=== PATIENT | male | born 1945 | race Caucasian/White ===

== ENCOUNTER 2018-10-14 16:56 | Outpatient (CLI) | payer MEDICARE, BC, SELFPAY ==
--- NOTE | 2018-10-14 15:45 | DI.RAD_ITS ---
SYMPTOMS/DIAGNOSIS: COUGH, SHORTNESS OF BREATH, H/O HEART DISEASE, UPPER RESPIRATORY INFECTION, J06.9 CHEST X-RAY, PA AND LATERAL: Comparison is 03/05/15. The heart size is within normal limits. The patient is status post CABG. Sternal wires are in place. Pulmonary vasculature is within normal limits. There is blunting again seen at the left costophrenic angle, which is unchanged and likely reflects scarring. There is atelectasis or scarring in the right lung base. No focal consolidating infiltrates, effusions or pneumothoraces are identified. The lungs appear hyperinflated consistent with underlying COPD. There is again seen postsurgical changes of an aortic valve replacement. Degenerative changes are seen in the spine. IMPRESSION: COPD. No acute pulmonary process.
[2018-10-14 17:28] LABS: Abs Immature Grans 0.01 k/cumm (0.0-0.09); Absolute Basophil Count 0.02 k/cumm (0.0-0.2); Absolute Eosinophil Count 0.07 k/cumm (0.0-0.7); Absolute Lymphocyte Count 1.22 k/cumm (1.2-3.4); Absolute Monocyte Count 0.88 k/cumm (0.11-0.7); Absolute Neutrophil Count 6.88 k/cumm (1.2-6.7); Basophils % 0.2; Eosinophils % 0.8; HCT 45.2 % (40.0-50.0); HGB 14.8 g/dL (13.5-17.5); Immature Grans % 0.1; Lymphocytes % 13.4; Mean Corp. HGB Concentration 32.7 g/dL (32.0-36.0); Mean Corpuscular Hemoglobin 28.8 pg (27.0-33.0); Mean Corpuscular Volume 88.1 fL (80-95); Mean Platelet Volume 9.9 fL (8.0-11.0); Monocytes % 9.7; Neutrophils % 75.8; Platelet Count 158 x1000/uL (130-400); RBC 5.13 m/cumm (4.50-6.00); RBC Distribution Width 13.8 % (11.8-14.1); White Blood Cell Count 9.08 k/cumm (4.4-10.8)
== END 2018-10-14 17:16 ==
PROVIDERS: PCP Emergency Medicine; Visit Provider Internal Medicine
DX: J06.9 Acute upper respiratory infection, unspecified (principal); R05 Cough; R06.02 Shortness of breath; J44.9 Chronic obstructive pulmonary disease, unspecified; Z95.1 Presence of aortocoronary bypass graft
CPT/HCPCS: 36415; 71046; 85025

== ENCOUNTER → 2019-03-03 10:57 | Outpatient (BNVA) | payer MEDICARE, BC, SELFPAY | PROVIDERS: PCP Emergency Medicine; Referring Provider Internal Medicine; Visit Provider Physical Therapy Assistant | DX: S30.811A Abrasion of abdominal wall, initial encounter (principal); X58.XXXA Exposure to other specified factors, initial encounter; I10 Essential (primary) hypertension; E11.9 Type 2 diabetes mellitus without complications | CPT/HCPCS: 99212; 99213 ==

== ENCOUNTER 2019-04-15 15:23 | Outpatient (CLI) | payer MEDICARE, BC, SELFPAY | END 2019-04-15 15:43 | PROVIDERS: PCP Emergency Medicine; Visit Provider Emergency Medicine | DX: N40.0 Benign prostatic hyperplasia without lower urinary tract symptoms (principal); Z12.5 Encounter for screening for malignant neoplasm of prostate | CPT/HCPCS: 36415; 84153 ==

== ENCOUNTER → 2019-06-12 11:25 | Outpatient (BNVA) | payer MEDICARE, BC, SELFPAY | PROVIDERS: PCP Emergency Medicine; Referring Provider Emergency Medicine; Visit Provider Physical Therapy Assistant | DX: Z12.11 Encounter for screening for malignant neoplasm of colon (principal); I12.9 Hypertensive chronic kidney disease with stage 1 through stage 4 chronic kidney disease, or unspecified chronic kidney disease; E11.22 Type 2 diabetes mellitus with diabetic chronic kidney disease; N18.9 Chronic kidney disease, unspecified; Z79.84 Long term (current) use of oral hypoglycemic drugs ==

== ENCOUNTER 2019-06-30 09:42 | Day surgery (SDC) | payer MEDICARE, BC, SELFPAY ==
--- NOTE | 2019-06-30 07:00 | W.COLOREPORT ---
Date of service: 06/30/19 Time of Service: 11:28 Colonoscopy Report Date of procedure: 06/30/19 Pre-op diagnosis general: Colon Cancer Screening Post-op diagnosis procedure note: other (Hunter-Diverticulosis) Procedure: Colonoscopy Surgeon: Nany Costello Anesthesia proc note operative: other (General/ ASA 4/ Fred Castillo CRNA) Estimated blood loss (mL): 0 Pathology: none sent Complications: None Disposition: same day Indications: Mr. Rosenthal is a pleasant 73 year old male seen in the office for a screening colonoscopy. Risks, benefits and complications have been reviewed. Complications include but are not limited to bleeding, pain, perforation, missed small lesion/polyp, sore throat, aspiration and adverse reaction to the medications. Questions were entertained and answered to their satisfaction and they wished to proceed. No guarantees were given or implied. Prep: Miralax/Dulcolax Procedure Start Time: 11:02 Procedure End Time: 11:27 Retraction Time: 15 minutes Findings: Hunter-Diverticulosis Suboptimal prep in the cecum and ascending colon Procedure Description: After informed consent was obtained the patient was taken to the procedure room and placed in a left decubitous position. Monitors were applied and a time out was done. The patients name, date of , procedure, allergies to medications and metal in their body was reviewed. The patient was then sedated. Once sedated and comfortable a rectal exam was done. External exam was normal. Internal exam revealed a normal sphincter tone and no palpable masses. Unable to feel the prostate due to patient body habitus. The scope was then introduced and retro-flexed. No internal hemorrhoids, polyps or masses were identified on retro-flexion. The scope was then advanced to the cecum without difficulty. The TI and appendiceal orifice were identified. The prep was adequate except in the cecum and part of the ascending colon. 1 L was used to clean the cecum and ascending colon. The scope was then slowly retracted over [] minutes back into the rectum. There were no polyps identified. There was moderate hunter-diverticulosis. The scope was removed and the patient was woken up and taken back to Same day surgery in stable condition. The patient tolerated the procedure well and there were no immediate complications. Follow up: The patient should follow up in 10 years unless they develop changes in bowel habits or other new gastrointestinal complaints.
--- NOTE | 2019-06-30 07:02 | W.PM.DSUDISC ---
Discharge Plan Disposition Patient Disposition: HOME Condition: Good Discharge Details Reason For Visit: Colonoscopy Attending Provider: Nany Costello Primary Care Provider: Carlos Hernandez Home Meds and New Rx's Prescriptions: Continued amlodipine 10 mg tablet 10 mg PO DAILY RF: 0 epinephrine [EpiPen 2-Yuri] 0.3 mg/0.3 mL auto-injector 0.3 mg IM ONCE Qty: 1 RF: 2 rosuvastatin [Crestor] 10 mg tablet 10 mg PO DAILY Qty: 90 RF: 3 metformin 500 mg tablet 500 mg PO DAILY RF: 0 amoxicillin 500 MG capsule 2,000 mg PO DIRECTED RF: 0 aspirin [Aspir-81] 81 MG tablet,delayed release (DR/EC) 1 tab PO DAILY RF: 0 Symbicort 10.2 GM HFA aerosol inhaler 2 puff Inhalation BID Qty: 2 RF: 6 mometasone [Nasonex] 17 GM spray,non-aerosol 2 spry NS BID RF: 0 Spiriva with HandiHaler 18 MCG capsule, w/inhalation device 18 mcg Inhalation DAILY RF: 0 escitalopram oxalate [Lexapro] 20 MG tablet 20 mg PO DAILY RF: 0 Cosentyx (2 Syringes) 150 MG/1 ML syringe 150 mg SQ weekly RF: 0 diclofenac sodium 100 GM gel 100 gm Topical QID MDD 100 GM Qty: 1 RF: 0 ranitidine HCl 150 mg capsule 150 mg PO BID Qty: 180 RF: 3 hydrochlorothiazide 25 mg tablet 25 mg PO DAILY Qty: 90 RF: 4 losartan [Cozaar] 100 mg tablet 100 mg PO DAILY Qty: 90 RF: 3 fenofibric acid (choline) [Trilipix] 135 mg capsule,delayed release(DR/EC) 135 mg PO HS Qty: 90 RF: 3 spironolactone 25 mg tablet 25 mg PO DAILY Qty: 90 RF: 2 trazodone 50 MG tablet 50 mg PO hs prn RF: 0 acetaminophen [Mapap Extra Strength] 500 MG tablet 1,000 mg PO Q6H PRN PRNRF: 0 Discontinued polyethylene glycol 3350 17 gram/dose powder 238 g PO ONCE Qty: 238 RF: 0 bisacodyl [Dulcolax (bisacodyl)] 5 mg tablet,delayed release (DR/EC) 5 mg PO ONCE Qty: 4 RF: 0 Discharge Instructions Instructions: Colonoscopy (DC), Diverticulosis (DC) Additional Instructions: Findings: Diverticulosis Follow up: 10 years Please call if you develop: fevers >101.5 Nausea or Vomiting Abdominal pain that is not transient DAY SURGERY UNIT POST ENDOSCOPY INSTRUCTIONS 1. Because there will be medication in your system for the next 24 hours, you may feel a little sleepy. Your coordination will be affected. Therefore: a. Do not drive or operate dangerous equipment for 24 hours. b. Do not drink alcohol beverages for 24 hours (not even beer). c. Plan to go home and rest for the day. 2. Generally there are no restrictions on your activity after a day or so has gone by, but you may feel a bit fatigued for a few days. 3 After you arrive home you may have a light meal and return to a normal diet as you can tolerate it without feeling sick to your stomach. 4. After surgery, you may feel pain or discomfort. This should be only transient, but if it persists please contact your doctor. 5. If there are any questions regarding the findings of your procedure, please feel free to contact your doctor. 6. If you are unable to contact your doctor with a problem, contact the hospital at [phone]. 7. Continue all your regular medications unless directed otherwise. I understand the above instructions and have no questions. Signature of Patient or Responsible Adult Escort Date/Time Name of Responsible Adult Escort Signature of Nurse Date/Time Activity:: Activity as Tolerated Diet:: low fat and high fiber Discharge Orders Discharge Orders: Discharge Order (Routine); Ordered 06/30/19 Ordered By: Nany Costello DS: Diagnosis Discharge Diagnosis (1) Colonoscopy - MAC: Status: None (2) Diverticulosis large intestine w/o perforation or abscess w/o bleeding: Status: Acute
[2019-06-30 10:19] VITALS: BP 139/66; PULSE 64; RESP 16; TEMP 36.8; O2SAT 96
[2019-06-30] MEDS: Lactated Ringers 1,000 ML 80 ML IV (10:44)
[2019-06-30 12:00] VITALS: BP 98/59; PULSE 53; RESP 15; TEMP 36.7; O2SAT 95
== END 2019-06-30 12:28 | disposition home or self-care (01) ==
LOC: SUR 09:42
PROVIDERS: PCP Emergency Medicine; Visit Provider Surgery
PROC: 0DJD8ZZ Inspection of Lower Intestinal Tract, Via Natural or Artificial Opening Endoscopic (ICD-10-PCS; CPT 45378; principal; 2019-06-30 11:15)
DX: Z12.11 Encounter for screening for malignant neoplasm of colon (principal); K57.30 Diverticulosis of large intestine without perforation or abscess without bleeding; E11.9 Type 2 diabetes mellitus without complications; Z79.84 Long term (current) use of oral hypoglycemic drugs; I10 Essential (primary) hypertension; K21.9 Gastro-esophageal reflux disease without esophagitis
CPT/HCPCS: G0121; J2250; J3010

== ENCOUNTER 2019-09-02 07:00 | Outpatient (CLI) | payer MEDICARE, BC, SELFPAY ==
[2019-09-02 13:01] LABS: Hemoglobin A1C 6.1 % (4.5-6.2)
[2019-09-02 14:10] LABS: Anion Gap 12.5 mmol/L (3-11); BUN 31 mg/dL (7-18); CO2 27.5 mmol/L (21.0-32.0); CREATININE 1.64 mg/dL (0.70-1.30); Calcium 9.4 mg/dL (8.5-10.1); Chloride 105 mmol/L (98-107); Estimated GFR 41.39 (mL/min/1.73m2); Glucose 141 mg/dL (74-106); Potassium 3.9 mmol/L (3.5-5.1); Sodium 145 mmol/L (136-145)
== END 2019-09-02 07:20 ==
PROVIDERS: PCP Emergency Medicine; Visit Provider Emergency Medicine
DX: I10 Essential (primary) hypertension (principal); E11.9 Type 2 diabetes mellitus without complications
CPT/HCPCS: 36415; 80048; 83036

== ENCOUNTER 2020-07-19 02:08 | Outpatient (CLI) | payer MEDICARE, BC, SELFPAY ==
[2020-07-19 11:06] LABS: Anion Gap 7.7 mmol/L (3-11); BUN 32 mg/dL (7-18); CO2 27.3 mmol/L (21.0-32.0); CREATININE 1.46 mg/dL (0.70-1.30); Calcium 9.4 mg/dL (8.5-10.1); Calculated LDL 115 mg/dL (<100); Chloride 103 mmol/L (98-107); Cholesterol 179 mg/dL (<200); Estimated GFR 47.33 (mL/min/1.73m2); Glucose 167 mg/dL (74-106); HDL Cholesterol 44 mg/dL (40-60); Potassium 4.3 mmol/L (3.5-5.1); Sodium 138 mmol/L (136-145); Triglyceride 104 mg/dL (<150)
== END 2020-07-19 02:28 ==
PROVIDERS: PCP Emergency Medicine; Visit Provider Emergency Medicine
DX: I25.10 Atherosclerotic heart disease of native coronary artery without angina pectoris (principal); E11.9 Type 2 diabetes mellitus without complications
CPT/HCPCS: 36415; 80048; 80061; 83036

== ENCOUNTER 2020-12-31 01:34 | Outpatient (CLI) | payer MEDICARE, BC, SELFPAY ==
[2020-12-31 13:45] LABS: Hemoglobin A1C 6.1 % (<5.7)
[2020-12-31 15:05] LABS: Anion Gap 11.9 mmol/L (3-11); BUN 48 mg/dL (7-18); CO2 25.1 mmol/L (21.0-32.0); CREATININE 1.6 mg/dL (0.70-1.30); Calcium 8.9 mg/dL (8.5-10.1); Calculated LDL 76 mg/dL (<100); Chloride 104 mmol/L (98-107); Cholesterol 173 mg/dL (<200); Estimated GFR 42.46 (mL/min/1.73m2); Glucose 143 mg/dL (74-106); HDL Cholesterol 90 mg/dL (40-60); Potassium 4.4 mmol/L (3.5-5.1); Sodium 141 mmol/L (136-145); Triglyceride 39 mg/dL (<150)
== END 2020-12-31 01:35 | disposition home or self-care (01) ==
LOC: LOS 01:34
PROVIDERS: PCP Emergency Medicine; Visit Provider Emergency Medicine
DX: I10 Essential (primary) hypertension (principal); E11.9 Type 2 diabetes mellitus without complications; Z96.41 Presence of insulin pump (external) (internal)
CPT/HCPCS: 36415; 80048; 80061; 83036

== ENCOUNTER 2021-09-20 10:49 | Outpatient (REF) | payer MEDICARE, BC, SELFPAY ==
[2021-09-21 15:07] LABS: COVID-19 RT-PCR UVMMC Result Negative (Negative)
== END 2021-09-20 10:50 | disposition home or self-care (01) ==
LOC: LBN 10:49
PROVIDERS: PCP Emergency Medicine; Visit Provider Emergency Medicine
DX: Z20.822 Contact with and (suspected) exposure to COVID-19 (principal)
CPT/HCPCS: U0003; U0005

== ENCOUNTER → 2022-01-26 10:27 | Outpatient (BNVA) | payer MEDICARE, BC, SELFPAY | PROVIDERS: PCP Family Medicine; Referring Provider Emergency Medicine; Visit Provider Physical Therapy Assistant | DX: Z01.818 Encounter for other preprocedural examination (principal); R19.5 Other fecal abnormalities; E11.9 Type 2 diabetes mellitus without complications; E66.01 Morbid (severe) obesity due to excess calories; I12.9 Hypertensive chronic kidney disease with stage 1 through stage 4 chronic kidney disease, or unspecified chronic kidney disease; N18.30 Chronic kidney disease, stage 3 unspecified; I25.10 Atherosclerotic heart disease of native coronary artery without angina pectoris; Z98.890 Other specified postprocedural states; Z86.16 Personal history of COVID-19 | CPT/HCPCS: 99214 ==

== ENCOUNTER 2022-01-30 01:19 | Outpatient (CLI) | payer MEDICARE, BC, SELFPAY ==
[2022-01-30 13:08] LABS: Source Nasal/Nares
[2022-01-30 17:02] LABS: COVID-19 PCR Negative (Negative)
== END 2022-01-30 01:20 | disposition home or self-care (01) ==
LOC: LBO 01:19
PROVIDERS: PCP Family Medicine; Visit Provider Surgery
DX: Z20.822 Contact with and (suspected) exposure to COVID-19 (principal); Z01.818 Encounter for other preprocedural examination
CPT/HCPCS: 87635; U0005

== ENCOUNTER 2022-02-01 08:44 | Day surgery (SDC) | payer MEDICARE, BC, SELFPAY ==
--- NOTE | 2022-02-01 06:47 | W.COLOREPORT ---
Colonoscopy Report Date of procedure: 02/01/22 Pre-op diagnosis general: +FIT, Colon Cancer Screening Post-op diagnosis procedure note: other (carlton diverticulosis, internal hemorrhoids polyp) Procedure: Colonoscopy with polyopectomy Surgeon: Nany Costello Anesthesia Type: General:No Airway Estimated blood loss (mL): 3 Pathology: other (ascending colon) Complications: None Disposition: same day Indications: Patient returns in follow up to proceed with diagnostic Colonoscopy following a (+) FIT test. His last screening Colonoscopy was in 2019 which was unremarkable with a recommendation for follow up in 10 years. He denies having any bowel habit changes. He denies any family history of colon cancer.? -Discussed colonoscopy bowel prep as well as the procedure. Discussed possible complications of the procedure to include bleeding, pain, perforation, missed small lesion/polyp, sore throat, aspiration and adverse reaction to the medications. Questions were answered to patient?s satisfaction. No guarantees were implied or given.? Prep: Miralax/Dulcolax Procedure Start Time: 10:12 Procedure End Time: 10:27 Retraction Time: 7 minutes Findings: Carlton diverticulosis Internal hemorrhoids one polyp Procedure Description: After informed consent was obtained the patient was taken to the procedure room and placed in a left decubitous position. Monitors were applied and a time out was done. The patients name, date of , procedure, allergies to medications and metal in their body was reviewed. The patient was then sedated. Once sedated and comfortable a rectal exam was done. External exam was normal. Internal exam revealed a normal sphincter tone and no palpable masses. The prostate felt smooth. The scope was then introduced and retro-flexed. Grade 1 and 2 internal hemorrhoids were noted. No polyps or masses were identified on retro-flexion. The scope was then advanced to the cecum without difficulty. The ileocecal vlave and appendiceal orifice were identified. The prep was marginal. The scope was then slowly retracted over 7 minutes back into the rectum. Polyps were removed with cold forceps in the ascending colon. There was moderate carlton- diverticulosis noted. The scope was removed and the patient was woken up and taken back to Same day surgery in stable condition. The patient tolerated the procedure well and there were no immediate complications. Follow up: The patient should follow up if they develop changes in bowel habits or other new gastrointestinal complaints.
--- NOTE | 2022-02-01 06:48 | W.PM.DSUDISC ---
Discharge Plan Disposition Patient Disposition: HOME Condition: Good Discharge Details Reason For Visit: Colonoscopy Attending Provider: Nany Costello Primary Care Provider: Helder Pimentel Home Meds and New Rx's Prescriptions: Continued epinephrine [EpiPen 2-Yuri] 0.3 mg/0.3 mL auto-injector 0.3 mg IM ONCE Qty: 1 2RF escitalopram oxalate [Lexapro] 20 mg tablet 20 mg PO DAILY Qty: 90 3RF omeprazole 20 mg capsule,delayed release(DR/EC) 20 mg PO DAILY 0RF multivitamin Tablet 1 tab PO DAILY 0RF alznygm-jrvg-qcwgd-oreg-capryl 100 mg-150 mg- 50 mg-150 mg capsule 1 cap PO DAILY 0RF amoxicillin 500 MG capsule 2,000 mg PO DIRECTED 0RF Rx Instructions: 4 TABS PRIOR TO DENTAL aspirin [Aspir-81] 81 MG tablet,delayed release (DR/EC) 1 tab PO DAILY 0RF mometasone [Nasonex] 17 GM spray,non-aerosol 2 spry NS BID 0RF Label Comments: 10/03/17 uses prn. md 06/09/[address] [facility] diclofenac sodium 100 GM gel 100 gm Topical QID MDD 100 GM Qty: 1 0RF amlodipine 5 mg tablet 5 mg PO DAILY Qty: 90 3RF fenofibric acid (choline) [Trilipix] 135 mg capsule,delayed release(DR/EC) 135 mg PO HS Qty: 90 3RF losartan [Cozaar] 100 mg tablet 100 mg PO DAILY Qty: 90 3RF amlodipine 10 mg tablet 10 mg PO DAILY Qty: 135 3RF Rx Instructions: Cardiology recommends 10 mg in the morning and 5 mg in the evening of the amlodipine. rosuvastatin 20 mg tablet 20 mg PO DAILY Qty: 90 3RF hydrochlorothiazide 25 mg tablet 25 mg PO DAILY Qty: 90 4RF spironolactone 25 mg tablet 25 mg PO DAILY Qty: 90 3RF trazodone 50 MG tablet 50 mg PO hs prn 0RF Label Comments: 06/22/17-now taking 100mg HS PRN/pps acetaminophen [Mapap Extra Strength] 500 MG tablet 1,000 mg PO Q6H PRN PRN0RF Discontinued bisacodyl [Dulcolax (bisacodyl)] 5 mg tablet,delayed release (DR/EC) 5 mg PO ONCE Qty: 4 0RF Rx Instructions: Take according to provider's instructions for colonoscopy prep. polyethylene glycol 3350 17 gram/dose powder 17 g PO ONCE Qty: 238 0RF Rx Instructions: To be taken as directed by prescriber's office for colonoscopy prep. Discharge Instructions Instructions: Diverticulosis (DC), Hemorrhoids (DC) Additional Instructions: Findings:diverticula, internal hemorrhoids, one small polyp Follow up: as needed Please call if you develop: fevers >101.5 Nausea or Vomiting Abdominal pain that is not transient Rectal bleeding that is more then a tbsp A hard abdomen and inability to pass gas DAY SURGERY UNIT POST ENDOSCOPY INSTRUCTIONS Instructions for everyone who is given Anesthesia: For your safety, please do the following for the next 24 Hours: a. Do not drive or operate dangerous equipment b. Do not drink alcohol beverages or use any recreational drugs for the first 24 hours or while taking pain medications. The medications in your body may have a reaction that can be dangerous. c. Do not make any important decisions or sign any important papers 1. Generally there are no restrictions on your activity after a day or so has gone by, but you may feel a bit fatigued for a few days. 2. After you arrive home you may have a light meal and return to a normal diet as you can tolerate it without feeling sick to your stomach. 3. After surgery, you may feel pain or discomfort. This should be only transient, but if it persists please contact your doctor. 4. If there are any questions regarding the findings of your procedure, please feel free to contact your doctor. 6. If you are unable to contact your doctor with a problem, contact the hospital at [phone]. 7. Continue all your regular medications unless directed otherwise. I understand the above instructions and have no questions. Signature of Patient or Responsible Adult Escort Date/Time Name of Responsible Adult Escort Signature of Nurse Date/Time Activity:: Activity as Tolerated Diet:: high fiber Discharge Orders Discharge Orders: Discharge Order (Routine); Ordered 02/01/22 Ordered By: Nany Costello
[2022-02-01 09:01] VITALS: BP 124/56; PULSE 64; RESP 20; TEMP 36.4; O2SAT 98
--- NOTE | 2022-02-01 09:18 | ANES.PREOP_ITS ---
General Info Date of Service Date Performed: 02/01/22 Height: 5 ft 8 in Weight: 123.8 kg Body Mass Index (BMI): 41.5 Surgical Procedure: Operation Date: 02/01/22 10:50 Proposed Procedure Side Surgeon p Colonoscopy Nany Costello MD Meds Allergies and Home Medications Allergies Allergy/AdvReac Type Severity Reaction Status Date / Time bee pollen Allergy Severe Verified 02/01/22 09:18 hydrocodone Allergy Severe ANAPHYLAXSI Verified 02/01/22 09:18 S Tetracyclines Allergy Intermediate TONGUE Verified 02/01/22 09:18 SWELLING pravastatin Allergy Mild SKIN RASH Verified 02/01/22 09:18 amoxicillin AdvReac Intermediate DIARRHEA Verified 02/01/22 09:18 atorvastatin AdvReac Intermediate JOINT PAIN Verified 02/01/22 09:18 enalapril AdvReac Intermediate COUGH Verified 02/01/22 09:18 morphine AdvReac Intermediate Nausea Verified 02/01/22 09:18 prednisone AdvReac Intermediate LEG CRAMPS Verified 02/01/22 09:18 zolpidem AdvReac Intermediate MUSCLE Verified 02/01/22 09:18 SPASM ibuprofen AdvReac Verified 02/01/22 09:18 POTASSIUM CLAVULA AdvReac Intermediate DIARRHEA Uncoded 02/01/22 09:18 iv dyes AdvReac unknown Uncoded 02/01/22 09:18 Home Medication Medication Instructions Recorded amoxicillin 500 mg capsule 2,000 mg PO DIRECTED tab-cap 02/04/13 aspirin 81 mg tablet,delayed 1 tab PO DAILY tab-cap 02/04/13 release (Aspir-) acetaminophen 500 mg tablet (Mapap 1,000 mg PO Q6H PRN PRN 09/08/13 Extra Strength) trazodone 50 mg tablet 50 mg PO hs prn 09/08/13 mometasone 50 mcg/actuation nasal 2 spry NS BID spray 09/08/14 spray (Nasonex) diclofenac sodium 3 % topical gel 100 gm TOPICAL QID #1 gm MDD 100 GM 04/05/18 epinephrine 0.3 mg/0.3 mL 0.3 mg (0.3 mL) IM ONCE #1 pack 04/11/19 injection, auto-injector (EpiPen 2-Yuri) escitalopram oxalate 20 mg tablet 20 mg PO DAILY #90 tab-cap 09/02/19 (Lexapro) amlodipine 5 mg tablet 5 mg PO DAILY #90 tab 03/10/20 omeprazole 20 mg capsule,delayed 20 mg PO DAILY 07/06/20 release fenofibric acid (choline) 135 mg 135 mg PO HS #90 tab-cap 04/19/21 capsule,delayed release (Trilipix) losartan 100 mg tablet (Cozaar) 100 mg PO DAILY #90 tab-cap 05/24/21 amlodipine 10 mg tablet 10 mg PO DAILY #135 tab-cap 06/02/21 rosuvastatin 20 mg tablet 20 mg PO DAILY #90 tab 06/02/21 hydrochlorothiazide 25 mg tablet 25 mg PO DAILY #90 tab-cap 07/15/21 tumeric 100 mg-brett 150 mg-olive 1 cap PO DAILY 10/13/21 50 mg-oreg 150 mg-caprylate capsule spironolactone 25 mg tablet 25 mg PO DAILY #90 tab-cap 12/30/21 bisacodyl 5 mg tablet,delayed 5 mg PO ONCE #4 tab 01/26/22 release (Dulcolax (bisacodyl)) multivitamin 1 tab PO DAILY 01/26/22 polyethylene glycol 3350 17 17 g PO ONCE #238 g 01/26/22 gram/dose oral powder Current Visit Medications: Current Medications Generic Name Dose Route Start Last Admin Trade Name Freq PRN Reason Stop Dose Admin Hyoscyamine Sulfate 0.125 mg 02/01/22 06:48 Hyoscyamine 0.125 Mg Sl/Oral/Chew SL DIRECTED PRN Ringer's Solution 1,000 mls @ 80 mls/hr 02/01/22 06:00 IV 03/02/22 23:59 [facility] IV Miscellaneous Supplies 1 each 02/01/22 06:00 Iv Access IV 03/02/22 23:59 DIRECTED ELAINE Ondansetron HCl 4 mg 02/01/22 06:48 Ondansetron 4 Mg/2 Ml Vial IVP Q4H PRN PRN Nausea / Vomiting Sodium Chloride 0 ml 02/01/22 06:00 Normal Saline Flush 10 Ml Syr IV 03/02/22 23:59 PRN PRN Sodium Chloride 0 ml 02/01/22 06:00 Normal Saline 10 Ml Vial IJ 03/02/22 23:59 DIRECTED PRN Sterile Water 0 ml 02/01/22 06:00 Water,Injection,Sterile 10 Ml Vial IJ 03/02/22 23:59 DIRECTED PRN PFSH Active Problems Active Problems: Problem Status Onset Code Status post aortic valve replacement 09/02/13 Z95.2 Status post coronary artery bypass grafting 09/02/13 Z95.1 Aortic stenosis I35.0 Morbid obesity with BMI of 40.0-44.9, adult Z68.41 Sleep apnea G47.30 Renal insufficiency N28.9 Aortic valve stenosis I35.0 CKD (chronic kidney disease) stage 1, GFR 90 ml/min or greater 04/25/17 N18.1 Diverticulitis K57.92 Kidney disease N28.9 Morbid obesity E66.01 Obstructive sleep apnea syndrome G47.33 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 denies this COVID-19 11/09/21 Depression Diabetes Recently diagnosis, diet controlled. Diverticulitis Essential hypertension (07/31/13) Fatty liver Gastroesophageal reflux disease History of CVA (cerebrovascular accident) 2010 sub acute left cerebral stroke History of tobacco use Hyperlipidemia Hypertension Insomnia Osteoarthritis Pancreatitis Pneumonia (09/08/13) Psoriasis Psoriatic arthritis (04/25/17) Type 2 diabetes mellitus without complication, with ocean transportation intermediary current use of insulin pump (06/22/17) Surgical History Surgical History Colonoscopy - MAC (~06/30/19) 04/28-Diverticulosis 07/31-neg Colostomy 06/30/05 10/24/05 REVERSE COLOSTOMY Endoscopic Ethmoid (A&P) (~1997) History of colostomy History of surgical procedure PAMICULECTOMY (02/23/09) Status post aorto-coronary artery bypass graft F/U with [place] [facility] last seen 04/2021 Status post hip replacement Status post panniculectomy Total replacement of hip 2001 RIGHT 2008 LEFT Tobacco Smoking/Tobacco Use Status: Former Tobacco Use Alcohol Alcohol Intake: current Alcohol intake frequency: holidays/special occasions only Alcohol type: beer and hard liquor Substance Use Substance use: Never Substance use type: does not use Vital Signs and Lab Results Vital Signs Most Recent Vital Signs in EMR: Most Recent Vital Signs Temp Pulse Resp BP Pulse Ox 36.4 C L 64 20 124/56 L 98 02/01/22 09:01 02/01/22 09:01 02/01/22 09:01 02/01/22 09:01 02/01/22 09:01 Lab Results Blood Type / Crossmatch: No Data to Display Complete Blood Count: No Data to Display Complete Metabolic Panel: No Data to Display Liver Function Panel: No Data to Display Coagulation Panel: No Data to Display Cardiac Panel: No Data to Display Arterial Blood Gas: No Data to Display Venous Blood Gas: No Data to Display Pancreas Panel: No Data to Display Thyroid Panel: No Data to Display Infectious Disease: Coronavirus (COVID-19)(PCR) Negative (Negative) 01/30/22 11:00 01/30/22 Coronavirus 2019 Source Nasal/Nares 01/30/22 11:00 01/30/22 Blood Cultures: No Data to Display Toxicology Panel: No Data to Display Imaging and Studies Imaging and Studies Study information below may be from another EMR and interpreted by another provider. Please see original notes in EMR for more complete details. Echocardiogram Summary: 03/07/18 S/P AVR in 2012 EF 65% Trace MR, [place], [place] Pulmonary Function Summary: 04/01/14 IMPRESSION: Severe obstructive airways disease with significant bronchodilator response. Anesthesia Assessment and Plan Anesthesia History Personal History: No History of Anesthesia Complications Family History: No Family History of Anesthesia Complications Exercise Tolerance Exercise Tolerance: Metabolic Equivalents<4 Pertinent Negatives Pertinent Negatives: No Symptoms of GERD (Well controlled) and No Major Cardiovascular Symptoms or Complaints Cardiac & Pulmonary Exam Cardiac Exam: Normal S1/S2 Heart Sounds Pulmonary Exam: Clear Bilateral Breath Sounds Cardiac and Pulmonary Comment:: CPAP every night Implantable Cardiac Device Does patient have a Pacemaker or an ICD?: No Airway Exam Known Difficult Airway: No Mallampati Class: 2 Mouth Opening: Normal (> 3cm) Thyromental Distance: Greater than 3 cm Neck Range of Motion: Full ROM Neck Circumference: Normal Teeth Condition: Normal Dentition ASA Classification ASA Score: ASA 3 Emergency Case?: No NPO Status NPO Status: NPO Clears >2 hours, Solids >8 hours Anesthesia Plan Resuscitation Status: Full Code Anesthesia Technique: General Anesthesia Airway Planned: Natural Airway Monitors Used: Standard Monitors Preoperative Comments:: history of CAD s/p CABG x 3 in 2013, AVR in 2013, CKD, Type 2 DM, GERD, HTN and Morbid Obesity
[2022-02-01] MEDS: Lactated Ringers 1,000 ML 80 ML IV (09:34)
[2022-02-01 09:44] VITALS: BMI 41.5
--- NOTE | 2022-02-01 10:22 | BOWEL_PTH ---
PATIENT: Raghu Rosenthal LOC: [facility] U#:[id number] AGE/SX: 76/M ROOM: RE02/01/[address]: Nany Costello MD : [id number] BED: DIS: 02/01/2022 SPEC #: [id number] RECD: 02/01/22 12:53 STATUS: OMAR REQ #: [id number] SIENNA: 02/01/22 10:[address]: Nany Costello DEPT: Surgical Specimen RECD BY: Britni Maynard ENTERED: 02/01/22 12:53 SP TYPE: Bowel OTHR DR: Helder Pimentel Tissues: 1 - BIOPSY BOWEL Procedures: GROSS AND MICRO LEVEL 4 Comments: [id number]
[2022-02-01 10:34] VITALS: BP 105/65; PULSE 59; RESP 20; TEMP 36.2; O2SAT 94
--- NOTE | 2022-02-01 10:47 | W.ANESPOSTOP ---
Postoperative Evaluation Date, Time and Location Date Performed: 02/01/22 Time Performed: 10:36 Patient Location: Day Surgery Unit Vital Signs Most Recent Imported Vital Signs: Most Recent Vital Signs Temp Pulse Resp BP Pulse Ox 36.2 C L 59 L 20 105/65 94 02/01/22 10:34 02/01/22 10:34 02/01/22 10:34 02/01/22 10:34 02/01/22 10:34 Pain Score Most Recent Pain Score: Most Recent Pain Score Pain Level 0 02/01/22 10:34 Assessment Mental Status: Awake (Alert & Oriented to Patient Baseline) Airway and Respiratory Function: Patent airway with normal (patient baseline) respiratory exam Cardiovascular Function: Hemodynamically Stable Hydration Status: Adequately Hydrated Nausea & Vomiting: No Nausea or Vomiting Pain: Pt. Denies Any Pain Peripheral Nerve Block: Patient did not receive a nerve block
[2022-02-01 11:05] VITALS: BP 119/76; PULSE 53; RESP 20; TEMP 36.3; O2SAT 97
== END 2022-02-01 11:38 | disposition home or self-care (01) ==
LOC: SUR 08:45
PROVIDERS: PCP Family Medicine; Visit Provider Surgery
PROC: 0DJD8ZZ Inspection of Lower Intestinal Tract, Via Natural or Artificial Opening Endoscopic (ICD-10-PCS; CPT 45378; principal; 2022-02-01 10:45)
DX: R19.5 Other fecal abnormalities (principal); K63.5 Polyp of colon; K57.30 Diverticulosis of large intestine without perforation or abscess without bleeding; K64.1 Second degree hemorrhoids; K64.0 First degree hemorrhoids; K63.89 Other specified diseases of intestine
CPT/HCPCS: 45380; 88305

== ENCOUNTER 2022-02-19 03:45 | Inpatient (IN) | payer MEDICARE, BC, SELFPAY ==
[2022-02-19] VITALS (43 sets, daily range): BP systolic 93–149; BP diastolic 46–88; PULSE 55–87; RESP 16–35; TEMP 36.6–39.2; O2SAT 94–98
--- NOTE | 2022-02-19 03:45 | DI.RAD_ITS ---
Exam(s) XR PORTABLE CHEST AP EXAM: XR PORTABLE CHEST AP CLINICAL HISTORY: cough, fever TECHNIQUE: 2D digital imaging was performed of the chest. One image was obtained. An AP view was ob tained. COMPARISON: CR XR CHEST 2V PA LATERAL from 10/14/2018 FINDINGS: MEDIASTINUM: Normal. HEART: Normal. PULMONARY VASCULATURE: Normal. LUNGS: There is a left basilar infiltrate. The right lung is grossly clear. PLEURAL SPACE: No pleural effusion or pneumothorax. BONE:Within normal limits for the patient's age. Sternal wires are in place. OTHER FINDINGS:Normal. IMPRESSION: Left basilar infiltrate. DATA REPOSITORY: RADIATION DOSE DELIVERED:
--- NOTE | 2022-02-19 03:45 | RT.EKG_ITS ---
APPROVED REPORT Exam: Resting ECG Reason for Exam: sob Patient Location: E HR:77 bpm ECG Measurements Heart Rate 77 AXIS WV 185 P 28 QRSd 97 QRS 26 QT 436 T 43 QTc 495 Conclusion Sinus rhythm...normal P axis, V-rate 60- 99 PHysician: no stemi, unchanged
--- NOTE | 2022-02-19 04:16 | ED.GENADUL_ITS ---
Discharge Plan Disposition Patient Disposition: [facility] INPATIENT Condition: Stable Discharge Details Chief Complaint: GenMedical Clinical Impression: Fever, Pneumonia, Non-ST elevation [place] (NSTEMI), Weakness, Syncope Primary Care Provider: Helder Pimentel ED Provider: Miller Renner Home Meds and New Rx's Prescriptions: No Action epinephrine [EpiPen 2-Yuri] 0.3 mg/0.3 mL auto-injector 0.3 mg IM ONCE Qty: 1 2RF escitalopram oxalate [Lexapro] 20 mg tablet 20 mg PO DAILY Qty: 90 3RF omeprazole 20 mg capsule,delayed release(DR/EC) 20 mg PO DAILY multivitamin Tablet 1 tab PO DAILY zihhezy-ynvc-oltvl-oreg-capryl 100 mg-150 mg- 50 mg-150 mg capsule 1 cap PO DAILY amoxicillin 500 MG capsule 2,000 mg PO DIRECTED Rx Instructions: 4 TABS PRIOR TO DENTAL aspirin [Aspir-81] 81 MG tablet,delayed release (DR/EC) 1 tab PO DAILY mometasone [Nasonex] 17 GM spray,non-aerosol 2 spry NS BID Label Comments: 10/03/17 uses prn. cooper 06/09/15 not using. [facility] diclofenac sodium 100 GM gel 100 gm Topical QID MDD 100 GM Qty: 1 0RF amlodipine 5 mg tablet 5 mg PO DAILY Qty: 90 3RF fenofibric acid (choline) [Trilipix] 135 mg capsule,delayed release(DR/EC) 135 mg PO HS Qty: 90 3RF losartan [Cozaar] 100 mg tablet 100 mg PO DAILY Qty: 90 3RF amlodipine 10 mg tablet 10 mg PO DAILY Qty: 135 3RF Rx Instructions: Cardiology recommends 10 mg in the morning and 5 mg in the evening of the amlodipine. rosuvastatin 20 mg tablet 20 mg PO DAILY Qty: 90 3RF hydrochlorothiazide 25 mg tablet 25 mg PO DAILY Qty: 90 4RF spironolactone 25 mg tablet 25 mg PO DAILY Qty: 90 3RF trazodone 50 MG tablet 50 mg PO hs prn Label Comments: 06/22/17-now taking 100mg HS PRN/pps acetaminophen [Mapap Extra Strength] 500 MG tablet 1,000 mg PO Q6H PRN PRN cetirizine [Zyrtec] 10 mg Tablet 10 mg PO DAILY Medical Decision Making Twelve 76-year-old male with a past medical history of coronary artery disease, aortic valve replacement, previous subarachnoid hemorrhage, mitral valve disease, PTSD, who presents today for evaluation of fever and chills and cough. Patient and state for the last 3 days he has had mild fever, intermittently but seems to get better and worse throughout the day. He admits to cough with productive white sputum. He denies any urinary complaints. They have done a home COVID test negative. He denies any chest pain or significant shortness of breath but does admit to generalized fatigue. He denies any vomiting but does admit to diarrhea. He denies any abdominal pain. No other complaints at this time. No other modifying factors. Physical exam demonstrates dry mucous membranes. Relatively clear lung sounds, no calf tenderness. Trace pitting edema in the lower extremities. No abdominal tenderness. Patient does have some stool in his lower extremities. Differential includes viral etiology including flu and COVID, pneumonia, or UTI. We will evaluate for these etiologies, monitor closely and reassess. Additionally of note the patient and his admit to an episode of syncope that occurred at home tonight. He was in bed. He did not fall or hit his head. He denies any headache at this time. No trauma to the head. No evidence of trauma on exam. 6:30 AM Patient's laboratory work-up is returned, patient is negative for flu, COVID, RSV. Hemoglobin and hematocrit minimally low, platelet is notably low at 83. Patient does take a daily aspirin but no other blood thinners. No bandemia, the patient does have mild lymphopenia. Lactate mildly elevated at 1.8, procalcitonin slightly elevated at 0.4. Creatinine slightly higher than normal at 1.9. Thyroid function stable. Troponin elevated at 199, however this is in the setting of no chest pain whatsoever. EKG shows minimal depression in the lateral leads, but no elevation or STEMI. Urinalysis negative, chest x-ray shows questionable lateral cyst versus scarring. I am concerned for an infiltrative process and in the infectious source. I did contact the hospitalist Dr. Hopper, and discussed the case with her, Dr. Hopper requested that we get a repeat troponin prior to admission. We will do this and I will contact the day hospitalist once this result. Differential also does include bacteremia, and with the patient's valve, there is always concern for endocarditis. 7 AM Repeat troponin shows minimal elevation to the value of 202. Patient is still chest pain-free. He remains hemodynamically stable. He has a penicillin allergy, we have started him on vancomycin and Levaquin for atypical coverage, gram-negative and gram-positive coverage. I am hesitant to give the patient aspirin or heparinized him with his diminishing platelet count. Since he is chest pain-free I do not see an indication for heparin bolus or infusion at this stage. We will reach out to the hospitalist for admission. 7:15 AM Discussed the case with the hospitalist Dr. Dawn, he agrees with the assessment and plan. He agrees with holding off on heparinization or aspirin at this time given his presentation and low platelets. Antibiotics have already been started. He will place admission orders. I have extensively reviewed the treatment plan with the patient. I have addressed all patient concerns at this time. I have also discussed the plan with the admitting physician and they agree with the current assessment and plan and have agreed to assume responsibility for the patient. All parties demonstrate verbal understanding and agreement with our assessment and plan at this time. The documentation in this chart was dictated using [employer] dictation software. Please excuse any dictation errors. EKG 4: 05 Sinus rhythm, rate 77, no significant ST elevations. Minimal less than a millimeter depression in V5 and V6. No STEMI. FINDINGS: Lungs: Mild interstitial prominence and minimal left basilar subsegmental atelectasis versus scarring. No consolidation. Pleural spaces: No pleural effusion. No pneumothorax. Heart/Mediastinum: Grossly stable. Bones/joints: Grossly stable. IMPRESSION: Mild subsegmental atelectasis versus scarring in the left lower lobe. No focal consolidation Thank you for allowing us to participate in the care of your patient. Dictated and Authenticated by: William Aquino MD 02/19/2022 6:08 AM Eastern Time ([place] & [place]) HPI General Date/Time Provider Initiated Documentation: 02/19/22 03:47 . HPI Narrative: Twelve 76-year-old male with a past medical history of coronary artery disease, aortic valve replacement, previous subarachnoid hemorrhage, mitral valve disease, PTSD, who presents today for evaluation of fever and chills and cough. Patient and state for the last 3 days he has had mild fever, intermittently but seems to get better and worse throughout the day. He admits to cough with productive white sputum. He denies any urinary complaints. They have done a home COVID test negative. He denies any chest pain or significant shortness of breath but does admit to generalized fatigue. He denies any vomi ting but does admit to diarrhea. He denies any abdominal pain. No other complaints at this time. No other modifying factors. Related Data Home Medications Medication Instructions Recorded Confirmed amoxicillin 500 mg capsule 2,000 mg PO DIRECTED 02/04/13 02/01/22 aspirin 81 mg tablet,delayed 1 tab PO DAILY 02/04/13 02/19/22 release (Aspir-) acetaminophen 500 mg tablet (Mapap 1,000 mg PO Q6H PRN PRN 09/08/13 02/19/22 Extra Strength) trazodone 50 mg tablet 50 mg PO hs prn 09/08/13 02/19/22 mometasone 50 mcg/actuation nasal 2 spry NS BID 09/08/14 02/19/22 spray (Nasonex) diclofenac sodium 3 % topical gel 100 gm topical QID #1 g 04/05/18 02/01/22 epinephrine 0.3 mg/0.3 mL 0.3 mg (0.3 mL) IM ONCE ##1 04/11/19 02/19/22 injection, auto-injector (EpiPen 2-Yuri) escitalopram oxalate 20 mg tablet 20 mg PO DAILY #90 tab-caps 09/02/19 02/19/22 (Lexapro) amlodipine 5 mg tablet 5 mg PO DAILY #90 tabs 03/10/20 02/19/22 omeprazole 20 mg capsule,delayed 20 mg PO DAILY 07/06/20 02/19/22 release fenofibric acid (choline) 135 mg 135 mg PO HS #90 tab-caps 04/19/21 02/19/22 capsule,delayed release (Trilipix) losartan 100 mg tablet (Cozaar) 100 mg PO DAILY #90 tab-caps 05/24/21 02/19/22 amlodipine 10 mg tablet 10 mg PO DAILY #135 tab-caps 06/02/21 02/01/22 rosuvastatin 20 mg tablet 20 mg PO DAILY #90 tabs 06/02/21 02/19/22 hydrochlorothiazide 25 mg tablet 25 mg PO DAILY #90 tab-caps 10/22/21 05/29/22 tumeric 100 mg-brett 150 mg-olive 1 cap PO DAILY 10/13/21 02/19/22 50 mg-oreg 150 mg-caprylate capsule spironolactone 25 mg tablet 25 mg PO DAILY #90 tab-caps 12/30/21 02/19/22 multivitamin 1 tab PO DAILY 01/26/22 02/19/22 cetirizine 10 mg tablet (Zyrtec) 10 mg PO DAILY 02/19/22 02/19/22 Previous Rx's Medication Instructions Recorded diclofenac sodium 3 % topical gel 100 gm topical QID #1 g 04/05/18 epinephrine 0.3 mg/0.3 mL 0.3 mg (0.3 mL) IM ONCE ##1 04/11/19 injection, auto-injector (EpiPen 2-Yuri) escitalopram oxalate 20 mg tablet 20 mg PO DAILY #90 tab-caps 09/02/19 (Lexapro) amlodipine 5 mg tablet 5 mg PO DAILY #90 tabs 03/10/20 fenofibric acid (choline) 135 mg 135 mg PO HS #90 tab-caps 04/19/21 capsule,delayed release (Trilipix) losartan 100 mg tablet (Cozaar) 100 mg PO DAILY #90 tab-caps 05/24/21 amlodipine 10 mg tablet 10 mg PO DAILY #135 tab-caps 06/02/21 rosuvastatin 20 mg tablet 20 mg PO DAILY #90 tabs 06/02/21 hydrochlorothiazide 25 mg tablet 25 mg PO DAILY #90 tab-caps 07/15/21 spironolactone 25 mg tablet 25 mg PO DAILY #90 tab-caps 12/30/21 Allergies Allergy/AdvReac Type Severity Reaction Status Date / Time bee pollen Allergy Severe Verified 02/19/22 03:57 hydrocodone Allergy Severe ANAPHYLAXSI Verified 02/19/22 03:57 S Tetracyclines Allergy Intermediate TONGUE Verified 02/19/22 03:57 SWELLING pravastatin Allergy Mild SKIN RASH Verified 02/19/22 03:57 amoxicillin AdvReac Intermediate DIARRHEA Verified 02/19/22 03:57 atorvastatin AdvReac Intermediate JOINT PAIN Verified 02/19/22 03:57 enalapril AdvReac Intermediate COUGH Verified 02/19/22 03:57 morphine AdvReac Intermediate Nausea Verified 02/19/22 03:57 prednisone AdvReac Intermediate LEG CRAMPS Verified 02/19/22 03:57 zolpidem AdvReac Intermediate MUSCLE Verified 02/19/22 03:57 SPASM ibuprofen AdvReac Verified 02/19/22 03:57 POTASSIUM CLAVULA AdvReac Intermediate DIARRHEA Uncoded 02/19/22 03:57 iv dyes AdvReac unknown Uncoded 02/19/22 03:57 General Stated Complaint: GenMedical DARION: 2 Review of Systems All systems reviewed & are unremarkable except as noted in HPI and below PFSH All Active Problems (Updated 02/19/22 @ 07:38 by Miller Renner DO) Fever (Acute) Pneumonia (Acute) Non-ST elevation [place] (NSTEMI) (Acute) Weakness (Acute) Syncope (Chronic) Coronary artery disease (Chronic) s/p CABG X 2 Status post aortic valve replacement (Acute 09/02/13) Tissue valve replacement. Morbid obesity with BMI of 40.0-44.9, adult (Chronic) Sleep apnea (Chronic) Note that he has not been using his machine for several months to a year now. Aortic valve stenosis (Acute) [place] [facility] [place]. CABG x 1 also Diverticulitis (Acute) Morbid obesity (Acute) Obstructive sleep apnea syndrome (Acute) C-PAP Rheumatic aortic stenosis (Acute) Subarachnoid hemorrhage (Acute 08/23/06) PTSD (post-traumatic stress disorder) (Acute) Mitral valve disease (Acute) Medical History Arthritis CAD (coronary artery disease) Cholelithiasis pt. denies this COVID-19 11/09/21 Depression Diabetes Recently diagnosis, diet controlled. 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 current use of insulin pump (06/22/17) Surgical History Colonoscopy - MAC (~06/30/19) 04/28-Diverticulosis 07/31-neg 2019 - negative 2022 - negative Colostomy 06/30/05 10/24/05 REVERSE COLOSTOMY Endoscopic Ethmoid (A&P) (~1997) History of colostomy History of surgical procedure PAMICULECTOMY (02/23/09) Status post aorto-coronary artery bypass graft [facility]2021 Status post hip replacement Status post panniculectomy Total replacement of hip 2001 RIGHT 2008 LEFT Family History Mother Essential hypertension Personal history of malignant neoplasm Father Essential hypertension Sister No problems noted. Sister No problems noted. Brother No problems noted. Brother No problems noted. Brother No problems noted. Social History Smoking/Tobacco Use Status: Former Tobacco Use Quit Date: 09/24/99 Smoking risk assessment performed?: Yes Alcohol Intake: current Alcohol Intake frequency: holidays/special occasions only Alcohol type: beer and hard liquor Drug use: Never Substance use type: does not use Current gender identity: male Do you feel safe at home: Yes Additional Social history: unable t to assess [facility] Exam Narrative Exam Narrative: 1.Const: Well-nourished, Well-developed, appearing stated age 2.Eyes: PERRL, no conjunctival injection, and symmetrical lids. 3.ENT: Atraumatic external nose and ears. Dry MM. Neck: Symmetric, trachea midline, No thyromegaly. 4.CVS: +S1/S2, No murmurs or gallops. Peripheral pulses 2+ and equal in all extremities. Brisk capillary refill in all extremities. 5.RESP: Unlabored respiratory effort. Clear to auscultation bilaterally. No wheezes rales or rhonchi 6.GI: Soft, Nontender/Nondistended, No hepatosplenomegaly. No guarding or rebound. 7.MSK: Normocephalic/Atraumatic, Extremities w/o deformity or ttp No cyanosis or clubbing, Normal movement of all extremities 8.Skin: Warm, Dry. No rashes or lesions. 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 Sensation grossly intact, no focal neurologic deficits. 10.Psych: (AAO) x3. Appropriate mood and affect Course Vital Signs Vital signs: Vital Signs Temperature 38.5 C H 02/19/22 03:49 Pulse 86 02/19/22 03:49 Respiratory Rate 22 02/19/22 03:49 Blood Pressure 149/58 H 02/19/22 03:49 Pulse Oximetry 97 02/19/22 03:49 Temperature 38.5 C H 02/19/22 03:49 Temperature Source Oral 02/19/22 03:49 Pulse 86 02/19/22 03:49 Respiratory Rate 22 02/19/22 03:54 Respiratory Effort Non-Labored 02/19/22 03:54 Respiratory Depth Normal 02/19/22 03:54 Respiratory Pattern Normal 02/19/22 03:54 Blood Pressure 149/58 H 02/19/22 03:49 Pulse Oximetry 97 02/19/22 03:49 Oxygen Delivery Method Room Air 02/19/22 03:49 Oxygen Flow Rate 0 02/19/22 03:49 Pain Level 2 02/19/22 03:49 Lab/Test Results Lab/Test Results: 02/19/22 03:56 Blood Blood Culture - Pending 02/19/22 03:56 Blood Blood Culture - Pending
[2022-02-19 04:53] LABS: Lactate 1.8 mmol/L (0.6-1.4)
[2022-02-19] MEDS: Normal Saline 500 ML IV ×2 (04:53→18:50)
[2022-02-19 05:03] LABS: Abs Immature Grans 0.02 10^3/uL (0.0-0.06); Absolute Basophil Count 0.01 10^3/uL (0.0-0.2); Absolute Eosinophil Count 0.04 10^3/uL (0.0-0.7); Absolute Lymphocyte Count 0.39 10^3/uL (1.2-3.4); Absolute Monocyte Count 0.38 10^3/uL (0.1-0.8); Absolute Neutrophil Count 2.85 10^3/uL (1.2-6.7); Basophils % 0.3; Eosinophils % 1.1; HCT 36.2 % (40.0-50.0); HGB 12.4 g/dL (13.5-17.5); Immature Grans % 0.5; Lymphocytes % 10.6; MCH 31.6 pg (27.0-33.0); MCHC 34.3 % (32.0-36.0); MCV 92 fL (80-95); MPV 10.7 fL (8.0-11.0); Monocytes % 10.3; Neutrophils % 77.2; RBC 3.92 10^6/uL (4.36-5.78); RDW 12.7 % (11.8-14.1); RDW-SD 43.6 fL; WBC 3.69 10^3/uL (4.4-10.8)
[2022-02-19 05:14] LABS: COVID-19 PCR Negative (Negative); Influenza A PCR Negative (Negative); Influenza B PCR Negative (Negative); RSV PCR Negative (Negative)
[2022-02-19 05:32] LABS: ALT 41 U/L (16-63); AST 63 U/L (15-37); Albumin 3.1 g/dL (3.4-5.0); Alkaline Phosphatase 40 U/L (46-116); Anion Gap 7.6 mmol/L (3-11); BUN 36 mg/dL (7-18); Bilirubin, Total 0.5 mg/dL (0.2-1.0); CO2 23.4 mmol/L (21.0-32.0); CREATININE 1.9 mg/dL (0.70-1.30); Calcium 9.2 mg/dL (8.5-10.1); Chloride 107 mmol/L (98-107); Estimated GFR 34.73 (mL/min/1.73m2); Glucose 136 mg/dL (74-106); Sodium 138 mmol/L (136-145); TSH (W/Ref FT4) 2.94 uIU/mL (0.36-3.74); Total Protein 6.6 g/dL (6.4-8.2)
[2022-02-19 05:37] LABS: Diff Comment Diff Reviewed; Platelet Count 83 10^3/uL (130-400); RBC Morphology Normal
[2022-02-19 05:39] LABS: Troponin I 199 ng/L (<or=60)
[2022-02-19 05:53] LABS: Source Nasopharynx
[2022-02-19 05:54] LABS: Procalcitonin 0.4 ng/mL
--- NOTE | 2022-02-19 06:09 | DI.VRAD_ITS ---
PROCEDURE INFORMATION: Exam: XR Chest Exam date and time: 02/19/2022 5:17 AM Age: 76 years old Clinical indication: Other: Cough fever TECHNIQUE: Imaging protocol: XR of the chest. Views: 1 view. COMPARISON: CR XR CHEST 2V PA LATERAL 10/14/2018 3:40 PM FINDINGS: Lungs: Mild interstitial prominence and minimal left basilar subsegmental atelectasis versus scarring. No consolidation. Pleural spaces: No pleural effusion. No pneumothorax. Heart/Mediastinum: Grossly stable. Bones/joints: Grossly stable. IMPRESSION: Mild subsegmental atelectasis versus scarring in the left lower lobe. No focal consolidation Dictated and Authenticated by: William Aquino MD. Ordering:ANISA Bhatt MD
[2022-02-19] MEDS: levoFLOXacin 750 MG/150 ML BAG 100 MG IVPB (06:22)
[2022-02-19 06:24] LABS: Bilirubin Negative (Negative); Blood Negative (Negative); Clarity Clear (Clear); Glucose Negative (Negative); Ketones Negative (Negative); Leukocyte Esterase Negative (Negative); Nitrite Negative (Negative); Urobilinogen 0.2 EU/dL (Up TO 0.2); pH 5.5 (5-8)
[2022-02-19 06:45] LABS: Troponin I 202 ng/L (<or=60)
[2022-02-19] MEDS: VANCOMYCIN/WATER (PEG) 2 GM/400 ML BAG IVPB (08:02)
[2022-02-19] MEDS: Losartan 50 MG TAB 100 MG PO (09:08)
[2022-02-19] MEDS: hydroCHLOROthiazide 25 MG TAB PO (09:08)
[2022-02-19] MEDS: Multivitamin TAB 1 TAB PO (09:08)
[2022-02-19] MEDS: Omeprazole 20 MG CAPCR PO (09:09)
[2022-02-19] MEDS: Aspirin E.C. 81 MG TABEC PO (09:09)
[2022-02-19] MEDS: Rosuvastatin 10 MG TAB 20 MG PO (09:09)
[2022-02-19] MEDS: Spironolactone 25 MG TAB PO (09:09)
[2022-02-19] MEDS: Cetirizine 10 MG TAB PO (09:09)
--- NOTE | 2022-02-19 11:24 | PDOC.CMIN ---
- If Service Date Differs Date of service: 02/19/22 Time of Service: 11:24 Care Management Initial Assess REASON FOR HOSPITALIZATION:: Fever, Pneumonia, Non-ST elevation [place] (NSTEMI), Weakness, Syncope PAST MEDICAL HISTORY/PAST SURGICAL HISTORY:: URI (upper respiratory infection) (Acute). Diverticulosis large intestine w/o perforation or abscess w/o bleeding (Acute). History of colostomy (Acute). History of surgical procedure (Acute). Status post hip replacement (Acute). Status post panniculectomy (Acute). 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 Subarachnoid hemorrhage (Acute 08/23/06). Rheumatic aortic stenosis (Acute). Psoriatic arthritis (Acute 04/25/17). Psoriasis (Acute). Osteoarthritis (Acute). Obstructive sleep apnea syndrome (Acute). C-PAP. Morbid obesity (Acute). Kidney disease (Acute). probably secondary to contrast dye. Hyperlipidemia (Acute). History of tobacco use (Acute). Gastroesophageal reflux disease (Acute). Essential hypertension (Acute 07/31/13). Diverticulitis (Acute). CKD (chronic kidney disease) stage 1, GFR 90 ml/min or greater (Acute 04/25/17). Arthritis (Acute). Aortic valve stenosis (Acute). valve replacement [facility] [place] 1213. CABG x 1 also. Pneumonia (Acute 09/08/13). Status post aortic valve replacement (Acute 09/02/13). Tissue valve replacement. Status post coronary artery bypass grafting (Acute 09/02/13). X 2. CAD (coronary artery disease) (Chronic). Aortic stenosis (Chronic). Morbid obesity with BMI of 40.0-44.9, adult (Chronic). Hypertension (Chronic). Hyperlipidemia (Chronic). GERD (gastroesophageal reflux disease) (Chronic). Sleep apnea (Chronic). Note that he has not been using his machine for several months to a year now. Fatty liver (Chronic). Pancreatitis (Chronic). Cholelithiasis (Chronic). Diverticulitis (Chronic). Renal insufficiency (Chronic). Depression (Chronic). Psoriasis (Chronic). Insomnia (Chronic). Diabetes (Chronic). Recently diagnosis, diet controlled. Surgical History . Colostomy. 06/30/05. 10/24/05 REVERSE COLOSTOMY. Endoscopic Ethmoid (A&P) (~1997). PAMICULECTOMY (02/23/09). Total replacement of hip. 2001 RIGHT. 2007 LEFT PREVIOUS FUNCTIONAL STATUS/SOCIAL/FAMILY SUPPORTS:: Raghu is and lives in [facility] with his Cathy.Raghu is a retired [employer] and was previously exposed to [employer] [place]. Raghu drives and is independent at baseline. CURRENT FUNCTIONAL STATUS:: Raghu was sitting up in his chair eating lunch when CM met with him. He is alert, oriented and easy to engage in conversation. ADVANCE DIRECTIVES:: None on file Has patient been provided with info about the portal/API?: Yes Did the patient sign up for the portal?: Yes (Prior to admission) CODE STATUS:: Full Code INSURANCE COVERAGE / FINANCIAL ISSUES:: BS. Medicare. [facility] connected: CM notified [facility] of admission ref #[id number] CURRENT HOME/COMMUNITY SERVICES/EQUIPMENT:: None PRIMARY CARE PHYSICIAN:: [facility] POTENTIAL DISCHARGE NEEDS:: Follow up appointment(s), discharge plan of care PATIENT/FAMILY EDUCATION NEEDS:: Review discharge instructions, limitations, medications and plan to follow up with community providers. ask me three. TRANSPORTATION:: via private vehicle with . PLAN:: Raghu requires close monitoring and treatment for pneumonia and NSTEMI. He is on IV ABX and telemetry. Anticipate, Raghu will discharge home with [facility] RN/PT (if indicated) and follow up with his community provider's including his PCP and central office trouble shooter. Raghu will transport via private vehicle with his Cathy when medically ready.
[2022-02-19 11:30] LABS: Troponin I 183 ng/L (<or=60)
[2022-02-19] MEDS: Normal Saline Flush 10 ML SYR IVP (12:12)
--- NOTE | 2022-02-19 13:11 | HPE_ITS ---
Date of service: 02/19/22 Time of Service: 12:11 Assessment and Plan Assessment and plan (1) Pneumonia: Status: Acute Assessment and plan: LLL infiltrate. Cont Levaquin 750mg Q48 hours (renally adjusted). IS PRN albuterol. Tessalon Perls. (2) Non-ST elevation NM (NSTEMI): Status: Acute Assessment and plan: Demand ischemia from acute illness likely. Trop trended upward 199 > 202 then downward to 183. Cont his home aspirin. (3) Coronary artery disease: Status: Chronic Assessment and plan: Cont asapirin and statin. (4) Obstructive sleep apnea syndrome: Status: Acute Assessment and plan: Home CPAP if it can be made available. (5) Essential hypertension: Assessment and plan: Cont his home amlodipine, Losartan and HCTZ Monitor BP (6) Diabetes: Assessment and plan: Cont home metformin. Diabetic diet. (7) Discharge planning issues: Status: Acute Assessment and plan: Observation admission. Can forsee discharge tomorrow if improving and is defervescing. History of Present Illness History of Present Illness Chief Complaint: cough and fever Narrative: This is a 76 yo male with a PMH of CAD, Aortic valve stenosis s/p replacement, sleep apnea, morbid obesity, subarachnoid hemorrhage, PTSD mitral valve disease. He presented to the ED c/o 3 day h/o fever/chills, cough. White sputum production. Home COVID test was negative. Endorsed some loose stool. No CP/palpitaitons. No urinary symptoms, N/V. ED evaluation: Vital Signs Temperature ?38.5 C H ?02/19/22 03:49 Pulse ?86 ?02/19/22 03:49 Respiratory Rate ?22 ?02/19/22 03:49 Blood Pressure ?149/58 H ?02/19/22 03:49 Pulse Oximetry ?97 ?02/19/22 03:49 Temperature ?38.5 C H ?02/19/22 03:49 Temperature Source ?Oral ?02/19/22 03:49 Pulse ?86 ?02/19/22 03:49 Respiratory Rate ?22 ?02/19/22 03:54 Respiratory Effort ?Non-Labored ?02/19/22 03:54 Respiratory Depth ?Normal ?02/19/22 03:54 Respiratory Pattern ?Normal ?02/19/22 03:54 Blood Pressure ?149/58 H ?02/19/22 03:49 Pulse Oximetry ?97 ?02/19/22 03:49 Oxygen Delivery Method ?Room Air ?02/19/22 03:49 Oxygen Flow Rate ?0 ?02/19/22 03:49 Pain Level ?2 ?02/19/22 03:49 Covid, RSV, influenza negative. WBC count 3.69. Hgb 12.4. Lactate 1.8. Procal 0.4. Creatinine 1.9 (baseline appx 1.7). Troonin 199 > 202. EKG unremarkable. CXR with LLL infiltrate. He was given a dose of vancomycin IV and Levaquin IV in the ED. Review of Systems All systems reviewed & are unremarkable except as noted in HPI and below PFSH All Active Problems (Updated 02/19/22 @ 13:32 by Kaz Viera MD) Discharge planning issues (Acute) Fever (Acute) Pneumonia (Acute) Non-ST elevation NM (NSTEMI) (Acute) Weakness (Acute) Syncope (Chronic) Coronary artery disease (Chronic) s/p CABG X 2 Status post aortic valve replacement (Acute 09/02/13) Tissue valve replacement. Morbid obesity with BMI of 40.0-44.9, adult (Chronic) Sleep apnea (Chronic) Note that he has not been using his machine for several months to a year now. Aortic valve stenosis (Acute) valve replacement [facility] 1213. CABG x 1 also Diverticulitis (Acute) Morbid obesity (Acute) Obstructive sleep apnea syndrome (Acute) C-PAP Rheumatic aortic stenosis (Acute) Subarachnoid hemorrhage (Acute 08/23/06) PTSD (post-traumatic stress disorder) (Acute) Mitral valve disease (Acute) Medical History Arthritis CAD (coronary artery disease) Cholelithiasis pt. denies this COVID-19 11/09/21 Depression Diabetes Recently diagnosis, diet controlled. Diverticulitis Essential hypertension (07/31/13) Fatty liver Gastroesophageal reflux disease History of CVA (cerebrovascular accident) 2010 sub acute left cerebral stroke History of tobacco use Hyperlipidemia Hypertension Insomnia Osteoarthritis Pancreatitis Pneumonia (09/08/13) Psoriasis Psoriatic arthritis (04/25/17) Type 2 diabetes mellitus without complication, with care home current use of insulin pump (06/22/17) Surgical History Colonoscopy - MAC (~06/30/19) 04/28-Diverticulosis 07/31-neg 2018 - negative 2021 - negative Colostomy 06/30/05 10/24/05 REVERSE COLOSTOMY Endoscopic Ethmoid (A&P) (~1997) History of colostomy History of surgical procedure PAMICULECTOMY (02/23/09) Status post aorto-coronary artery bypass graft F/U with [facility] last seen 04/2021 Status post hip replacement Status post panniculectomy Total replacement of hip 2001 RIGHT 2008 LEFT Family History Mother Essential hypertension Personal history of malignant neoplasm Father Essential hypertension Sister No problems noted. Sister No problems noted. Brother No problems noted. Brother No problems noted. Brother No problems noted. Social History Smoking/Tobacco Use Status: Former Tobacco Use Quit Date: 09/24/99 Smoking risk assessment performed?: Yes Alcohol Intake: current Alcohol Intake frequency: holidays/special occasions only Alcohol type: beer and hard liquor Drug use: Never Substance use type: does not use Current gender identity: male Do you feel safe at home: Yes Additional Social history: unable t to assess privatley Meds Allergies and Home Medications Allergies Allergy/AdvReac Type Severity Reaction Status Date / Time bee pollen Allergy Severe Verified 02/19/22 03:57 hydrocodone Allergy Severe ANAPHYLAXSI Verified 02/19/22 03:57 S Tetracyclines Allergy Intermediate TONGUE Verified 02/19/22 03:57 SWELLING pravastatin Allergy Mild SKIN RASH Verified 02/19/22 03:57 amoxicillin AdvReac Intermediate DIARRHEA Verified 02/19/22 03:57 atorvastatin AdvReac Intermediate JOINT PAIN Verified 02/19/22 03:57 enalapril AdvReac Intermediate COUGH Verified 02/19/22 03:57 morphine AdvReac Intermediate Nausea Verified 02/19/22 03:57 prednisone AdvReac Intermediate LEG CRAMPS Verified 02/19/22 03:57 zolpidem AdvReac Intermediate MUSCLE Verified 02/19/22 03:57 SPASM ibuprofen AdvReac Verified 02/19/22 03:57 POTASSIUM CLAVULA AdvReac Intermediate DIARRHEA Uncoded 02/19/22 03:57 iv dyes AdvReac unknown Uncoded 02/19/22 03:57 Home Medications Medication Instructions Recorded Confirmed Type amoxicillin 500 mg capsule 2,000 mg PO DIRECTED 02/04/13 02/19/22 History aspirin 81 mg tablet,delayed 1 tab PO DAILY 02/04/13 02/19/22 History release (Aspir-) acetaminophen 500 mg tablet (Mapap 1,000 mg PO Q6H PRN PRN 09/08/13 02/19/22 History Extra Strength) trazodone 50 mg tablet 50 mg PO hs prn 09/08/13 02/19/22 History mometasone 50 mcg/actuation nasal 2 spry NS BID 09/08/14 02/19/22 History spray (Nasonex) diclofenac sodium 3 % topical gel 100 gm topical QID #1 g 04/05/18 02/19/22 Rx epinephrine 0.3 mg/0.3 mL 0.3 mg (0.3 mL) IM ONCE ##1 04/11/19 02/19/22 Rx injection, auto-injector (EpiPen 2-Yuri) escitalopram oxalate 20 mg tablet 20 mg PO DAILY #90 tab-caps 09/02/19 02/19/22 Rx (Lexapro) omeprazole 20 mg capsule,delayed 20 mg PO DAILY 07/06/20 02/19/22 History release fenofibric acid (choline) 135 mg 135 mg PO HS #90 tab-caps 04/19/21 02/19/22 Rx capsule,delayed release (Trilipix) losartan 100 mg tablet (Cozaar) 100 mg PO DAILY #90 tab-caps 05/24/21 02/19/22 Rx rosuvastatin 20 mg tablet 20 mg PO DAILY #90 tabs 06/02/21 02/19/22 Rx hydrochlorothiazide 25 mg tablet 25 mg PO DAILY #90 tab-caps 07/15/21 02/19/22 Rx tumeric 100 mg-brett 150 mg-olive 1 cap PO DAILY 10/13/21 02/19/22 History 50 mg-oreg 150 mg-caprylate capsule spironolactone 25 mg tablet 25 mg PO DAILY #90 tab-caps 12/30/21 02/19/22 Rx multivitamin 1 tab PO DAILY 01/26/22 02/19/22 History amlodipine 10 mg tablet 10 mg PO QAM 02/19/22 02/19/22 History amlodipine 5 mg tablet 5 mg PO QPM 02/19/22 02/19/22 History cetirizine 10 mg tablet (Zyrtec) 10 mg PO DAILY 02/19/22 02/19/22 History metformin 500 mg tablet 500 mg PO DAILY 02/19/22 02/19/22 History tiotropium bromide 18 mcg capsule 1 cap inhalation DAILY 02/19/22 02/19/22 History with inhalation device (Spiriva with HandiHaler) Exam Narrative Exam Narrative: Pleasant elderly male sitting in chair. Const General: cooperative and no acute distress Nutritional Appearance: obese Orientation: alert and oriented x3 Eyes General: appearance normal, both eyes and all related structures Sclera: sclerae normal Neck Neck: full ROM and JVD Resp Effort & Inspection: normal respiratory effort Auscultation: clear to auscultation bilaterally Other: Occasional nonproductive cough. Cardio Jugular venous pressure: no JVD Rate: regular rate Rhythm: regular rhythm Heart Sounds: S1 normal and S2 normal GI Inspection: obesity Palpation: soft and nontender Auscultation: normal bowel sounds Skin General skin exam: no rashes or lesions noted Neuro General: no focal motor deficits Cranial Nerves: facial strength normal Cognition: normal cognition Speech: speech normal Extrem General: no pedal edema and no calf tenderness Results Labs Result diagrams: 02/19/22 04:29 02/19/22 04:29 Labs: Laboratory Results - last 24 hr 02/19/22 02/19/22 02/19/22 04:13 04:29 04:29 WBC RBC Hgb Hct MCV MCH MCHC RDW Plt Count MPV Immature Gran % Neutrophils % Lymphocytes % Monocytes % Eosinophils % Basophils % Nucleated RBC % Absolute Neutrophils Absolute Lymphocytes Absolute Monocytes Absolute Eosinophils Absolute Basophils RBC Morphology VBG Lactate Sodium 138 Potassium 4.0 Chloride 107 Carbon Dioxide 23.4 Anion Gap 7.6 BUN 36 H Creatinine 1.9 H Estimated GFR/1.73 m2 34.73 Glucose 136 H Calcium 9.2 Total Bilirubin 0.5 AST 63 H ALT 41 Alkaline Phosphatase 40 L Troponin I 199 H* Total Protein 6.6 Albumin 3.1 L Procalcitonin 0.4 TSH 2.94 Urine Color Urine Clarity Urine pH Ur Specific [place] Urine Protein Urine Ketones Urine Blood Urine Nitrite Urine Bilirubin Urine Urobilinogen Ur Leukocyte Esterase Urine Glucose COVID-19 Source Nasopharynx SARS-CoV-2 (PCR) Negative Influenza Type A (PCR) Negative Influenza Type B (PCR) Negative RSV (PCR) Negative 02/19/22 02/19/22 02/19/22 04:29 04:29 06:17 WBC 3.69 L RBC 3.92 L Hgb 12.4 L Hct 36.2 L MCV 92 MCH 31.6 MCHC 34.3 RDW 12.7 Plt Count 83 L MPV 10.7 Immature Gran % 0.5 Neutrophils % 77.2 Lymphocytes % 10.6 Monocytes % 10.3 Eosinophils % 1.1 Basophils % 0.3 Nucleated RBC % 0.0 Absolute Neutrophils 2.85 Absolute Lymphocytes 0.39 L Absolute Monocytes 0.38 Absolute Eosinophils 0.04 Absolute Basophils 0.01 RBC Morphology Normal VBG Lactate 1.8 H Sodium Potassium Chloride Carbon Dioxide Anion Gap BUN Creatinine Estimated GFR/1.73 m2 Glucose Calcium Total Bilirubin AST ALT Alkaline Phosphatase Troponin I Total Protein Albumin Procalcitonin TSH Urine Color Yellow Urine Clarity Clear Urine pH 5.5 Ur Specific [place] 1.020 Urine Protein Negative Urine Ketones Negative Urine Blood Negative Urine Nitrite Negative Urine Bilirubin Negative Urine Urobilinogen 0.2 Ur Leukocyte Esterase Negative Urine Glucose Negative COVID-19 Source SARS-CoV-2 (PCR) Influenza Type A (PCR) Influenza Type B (PCR) RSV (PCR) 02/19/22 02/19/22 06:25 11:05 WBC RBC Hgb Hct MCV MCH MCHC RDW Plt Count MPV Immature Gran % Neutrophils % Lymphocytes % Monocytes % Eosinophils % Basophils % Nucleated RBC % Absolute Neutrophils Absolute Lymphocytes Absolute Monocytes Absolute Eosinophils Absolute Basophils RBC Morphology VBG Lactate Sodium Potassium Chloride Carbon Dioxide Anion Gap BUN Creatinine Estimated GFR/1.73 m2 Glucose Calcium Total Bilirubin AST ALT Alkaline Phosphatase Troponin I 202 H* 183 H* Total Protein Albumin Procalcitonin TSH Urine Color Urine Clarity Urine pH Ur Specific [place] Urine Protein Urine Ketones Urine Blood Urine Nitrite Urine Bilirubin Urine Urobilinogen Ur Leukocyte Esterase Urine Glucose COVID-19 Source SARS-CoV-2 (PCR) Influenza Type A (PCR) Influenza Type B (PCR) RSV (PCR) Last Vital Signs Temp 37.6 C H 02/19/22 09:15 Pulse 55 L 02/19/22 09:56 Resp 20 02/19/22 09:15 BP 110/62 02/19/22 09:15 Pulse Ox 97 02/19/22 09:15
[2022-02-19] MEDS: Acetaminophen 325 MG TAB PO ×3 (15:00→18:18)
[2022-02-19] MEDS: Benzonatate 200 MG CAP PO ×2 (15:03→20:17)
[2022-02-19 18:58] LABS: Lactate 1.5 mmol/L (0.6-1.4)
[2022-02-19] MEDS: Normal Saline 1,000 ML 100 ML IV (19:37)
[2022-02-19] MEDS: amLODIPine 5 MG TAB PO (20:17)
[2022-02-19] MEDS: Fenofibrate, Micronized 145 MG TAB PO (21:16)
[2022-02-20] VITALS (10 sets, daily range): BP systolic 110–118; BP diastolic 68–75; PULSE 54–64; RESP 20–22; TEMP 36.4–37.9; O2SAT 96–98
[2022-02-20] MEDS: Acetaminophen 325 MG TAB PO ×2 (01:17→15:35)
[2022-02-20] MEDS: Normal Saline 1,000 ML 100 ML IV ×2 (04:58→15:32)
[2022-02-20 05:49] LABS: Abs Immature Grans 0.01 10^3/uL (0.0-0.06); Absolute Basophil Count 0.01 10^3/uL (0.0-0.2); Absolute Lymphocyte Count 0.53 10^3/uL (1.2-3.4); Absolute Monocyte Count 0.35 10^3/uL (0.1-0.8); Absolute Neutrophil Count 1.87 10^3/uL (1.2-6.7); Basophils % 0.3; Eosinophils % 6.7; HCT 33.6 % (40.0-50.0); HGB 11.1 g/dL (13.5-17.5); Immature Grans % 0.3; Lymphocytes % 17.8; MCH 31.2 pg (27.0-33.0); MCV 94 fL (80-95); MPV 10.6 fL (8.0-11.0); Monocytes % 11.8; Neutrophils % 63.1; RBC 3.56 10^6/uL (4.36-5.78); RDW 12.8 % (11.8-14.1); RDW-SD 44.7 fL; WBC 2.97 10^3/uL (4.4-10.8)
[2022-02-20 05:56] LABS: Anion Gap 8.3 mmol/L (3-11); BUN 37 mg/dL (7-18); CO2 23.7 mmol/L (21.0-32.0); Calcium 8.7 mg/dL (8.5-10.1); Chloride 109 mmol/L (98-107); Estimated GFR 32.74 (mL/min/1.73m2); Glucose 116 mg/dL (74-106); Potassium 4.9 mmol/L (3.5-5.1); Sodium 141 mmol/L (136-145)
[2022-02-20 07:09] LABS: Platelet Count 75 10^3/uL (130-400)
[2022-02-20 07:10] LABS: Diff Comment PLT Morph Reviewed; RBC Morphology Normal
[2022-02-20] MEDS: Rosuvastatin 10 MG TAB 20 MG PO (07:36)
[2022-02-20] MEDS: Losartan 50 MG TAB 100 MG PO (07:37)
[2022-02-20] MEDS: Omeprazole 20 MG CAPCR PO (07:37)
[2022-02-20] MEDS: Aspirin E.C. 81 MG TABEC PO (07:37)
[2022-02-20] MEDS: Escitalopram 20 MG TAB PO (07:37)
[2022-02-20] MEDS: Cetirizine 10 MG TAB PO (07:37)
[2022-02-20] MEDS: Multivitamin TAB 1 TAB PO (07:37)
[2022-02-20] MEDS: Benzonatate 200 MG CAP PO ×3 (07:37→19:05)
[2022-02-20] MEDS: amLODIPine 10 MG TAB PO (07:43)
[2022-02-20] MEDS: Tiotropium Bromide-Respimat 10 PUFF INH 2 PUFF IH (07:44)
[2022-02-20] MEDS: Spironolactone 25 MG TAB PO (07:44)
[2022-02-20] MEDS: hydroCHLOROthiazide 25 MG TAB PO (07:45)
[2022-02-20] MEDS: VANCOMYCIN/WATER (PEG) 1.25 GM/250 ML BAG IV (07:45)
[2022-02-20 11:41] LABS: C Diff PCR Negative (Negative)
--- NOTE | 2022-02-20 15:24 | W.PM.PROGNOT ---
Date of Service Date of service: 02/20/22 Time of Service: 14:25 Assessment and Plan Assessment and plan (1) Pneumonia: Status: Acute Assessment and plan: LLL infiltrate. Blood culture growing Gram Pos Cocci in all 4 bottles. Vancomycin initially given in ED and was to be discontinued, but will now continue until final ID and sensitivities of organsism known. Cont Levaquin 750mg Q48 hours (renally adjusted). IS PRN albuterol. Tessalon Perls. (2) Non-ST elevation [place] (NSTEMI): Status: Acute Assessment and plan: Demand ischemia from acute illness likely. Trop trended upward 199 > 202 then downward to 183. Cont his home aspirin. (3) Coronary artery disease: Status: Chronic Assessment and plan: Cont asapirin and statin. (4) Obstructive sleep apnea syndrome: Status: Acute Assessment and plan: Home CPAP if it can be made available. (5) Essential hypertension: Assessment and plan: Cont his home amlodipine, Losartan and HCTZ Monitor BP (6) Diabetes: Assessment and plan: Cont home metformin. Diabetic diet. (7) Discharge planning issues: Status: Acute Assessment and plan: Observation admission. Can forsee discharge tomorrow if improving and is defervescing. Subjective Subjective Patient reports: feels better, tolerating a regular diet and afebrile (Currently afebrile. Fever yesterday early evening.); denies nausea or vomiting Exam Narrative Exam Narrative: Pleasant elderly male sitting in chair. Const General: cooperative and no acute distress Nutritional Appearance: obese Orientation: alert and oriented x3 Eyes General: appearance normal, both eyes and all related structures Sclera: sclerae normal Neck Neck: full ROM and JVD Resp Effort & Inspection: normal respiratory effort Auscultation: clear to auscultation bilaterally Other: Occasional nonproductive cough. Cardio Jugular venous pressure: no JVD Rate: regular rate Rhythm: regular rhythm Heart Sounds: S1 normal and S2 normal GI Inspection: obesity Palpation: soft and nontender Auscultation: normal bowel sounds Skin General skin exam: no rashes or lesions noted Neuro General: no focal motor deficits Cranial Nerves: facial strength normal Cognition: normal cognition Speech: speech normal Extrem General: no pedal edema and no calf tenderness Psych Appearance: grossly normal Speech and Movement: speech and movement normal Affect: normal affect Attitude: cooperative Objective Last Vital Signs Temp 36.4 C L 02/20/22 07:50 Pulse 60 02/20/22 07:50 Resp 20 02/20/22 07:50 BP 118/75 02/20/22 07:50 Pulse Ox 98 02/20/22 07:50 Laboratory Results - last 24 hr 02/19/22 02/20/22 02/20/22 18:49 05:13 05:13 WBC 2.97 L RBC 3.56 L Hgb 11.1 L Hct 33.6 L MCV 94 MCH 31.2 MCHC 33.0 D RDW 12.8 Plt Count 75 L MPV 10.6 Immature Gran % 0.3 Neutrophils % 63.1 Lymphocytes % 17.8 Monocytes % 11.8 Eosinophils % 6.7 Basophils % 0.3 Nucleated RBC % 0.0 Absolute Neutrophils 1.87 Absolute Lymphocytes 0.53 L Absolute Monocytes 0.35 Absolute Eosinophils 0.20 Absolute Basophils 0.01 RBC Morphology Normal VBG Lactate 1.5 H Sodium 141 Potassium 4.9 Chloride 109 H Carbon Dioxide 23.7 Anion Gap 8.3 BUN 37 H Creatinine 2.0 H Estimated GFR/1.73 m2 32.74 Glucose 116 H Calcium 8.7 Stl C.difficile Tox PCR 02/20/22 10:48 WBC RBC Hgb Hct MCV MCH MCHC RDW Plt Count MPV Immature Gran % Neutrophils % Lymphocytes % Monocytes % Eosinophils % Basophils % Nucleated RBC % Absolute Neutrophils Absolute Lymphocytes Absolute Monocytes Absolute Eosinophils Absolute Basophils RBC Morphology VBG Lactate Sodium Potassium Chloride Carbon Dioxide Anion Gap BUN Creatinine Estimated GFR/1.73 m2 Glucose Calcium Stl C.difficile Tox PCR Negative
[2022-02-20] MEDS: amLODIPine 5 MG TAB PO (19:04)
[2022-02-20] MEDS: Fenofibrate, Micronized 145 MG TAB PO (21:34)
[2022-02-21] VITALS (7 sets, daily range): BP systolic 109–142; BP diastolic 63–75; PULSE 54–71; RESP 18–20; TEMP 36.6–37.6; O2SAT 95–98
[2022-02-21] MEDS: Normal Saline 1,000 ML 100 ML IV ×3 (01:12→20:44)
[2022-02-21 06:26] LABS: Absolute Basophil Count 0.01 10^3/uL (0.0-0.2); Absolute Eosinophil Count 0.34 10^3/uL (0.0-0.7); Absolute Lymphocyte Count 0.66 10^3/uL (1.2-3.4); Absolute Monocyte Count 0.29 10^3/uL (0.1-0.8); Absolute Neutrophil Count 1.59 10^3/uL (1.2-6.7); Basophils % 0.3; Eosinophils % 11.8; HCT 33.5 % (40.0-50.0); HGB 10.8 g/dL (13.5-17.5); Lymphocytes % 22.8; MCH 30.8 pg (27.0-33.0); MCHC 32.2 % (32.0-36.0); MCV 95 fL (80-95); MPV 10.6 fL (8.0-11.0); Neutrophils % 55.1; RBC 3.51 10^6/uL (4.36-5.78); RDW 12.8 % (11.8-14.1); RDW-SD 44.5 fL; WBC 2.89 10^3/uL (4.4-10.8)
[2022-02-21 06:34] LABS: Anion Gap 9.3 mmol/L (3-11); BUN 31 mg/dL (7-18); CO2 22.7 mmol/L (21.0-32.0); CREATININE 1.5 mg/dL (0.70-1.30); Calcium 8.3 mg/dL (8.5-10.1); Chloride 109 mmol/L (98-107); Estimated GFR 45.62 (mL/min/1.73m2); Glucose 98 mg/dL (74-106); Potassium 4.2 mmol/L (3.5-5.1); Sodium 141 mmol/L (136-145)
[2022-02-21] MEDS: Tiotropium Bromide-Respimat 10 PUFF INH 2 PUFF IH (07:17)
[2022-02-21] MEDS: VANCOMYCIN/WATER (PEG) 1.25 GM/250 ML BAG IV (07:20)
[2022-02-21 07:29] LABS: Platelet Count 80 10^3/uL (130-400)
[2022-02-21] MEDS: levoFLOXacin 500 MG, levoFLOXacin 250 MG 750 MG PO (08:28)
[2022-02-21] MEDS: amLODIPine 10 MG TAB PO (08:28)
[2022-02-21] MEDS: hydroCHLOROthiazide 25 MG TAB PO (08:28)
[2022-02-21] MEDS: Benzonatate 200 MG CAP PO ×3 (08:28→20:43)
[2022-02-21] MEDS: Omeprazole 20 MG CAPCR PO (08:29)
[2022-02-21] MEDS: Escitalopram 20 MG TAB PO (08:29)
[2022-02-21] MEDS: Aspirin E.C. 81 MG TABEC PO (08:29)
[2022-02-21] MEDS: Spironolactone 25 MG TAB PO (08:29)
[2022-02-21] MEDS: Rosuvastatin 10 MG TAB 20 MG PO (08:29)
[2022-02-21] MEDS: Multivitamin TAB 1 TAB PO (08:29)
[2022-02-21] MEDS: Losartan 50 MG TAB 100 MG PO (08:29)
[2022-02-21] MEDS: Cetirizine 10 MG TAB PO (08:29)
--- NOTE | 2022-02-21 11:58 | PDOC.CMPRO ---
- If Service Date Differs Date of service: 02/21/22 Time of Service: 11:58 Care Management Progress Note S/O: Raghu was sitting up in his chair, watching TV when CM met with him. His temp was slightly elevated this morning. He is on oral abx, cultures are still pending. A: 76 year old male admitted to [facility] on 02/19/22 for Fever, Pneumonia, Non-ST elevation PR (NSTEMI), Weakness, Syncope P: Raghu requires close monitoring and treatment for pneumonia and NSTEMI. He is on IV ABX and telemetry. Anticipate, Raghu will discharge home with New [facility] RN/PT (if indicated) and follow up with his community provider's including his PCP and production generalist. Raghu will transport via private vehicle with his Cathy when medically ready.
--- NOTE | 2022-02-21 14:34 | CHAPLAIN ---
Raghu was up in the chair when visited. He was very pleasant and easily engaged in a conversation. He's from [facility] and he said he fell and was unable to get up. They have found the problem, and some other problems and are working on them, Raghu said about his care. He told me that he has a great family, including his and daughters. Rodney is also a [place] vet. He is originally from [place] but left after returning from [place], then moved to [place], then [place] and then [place], where he said he knew a lot of other veterans. He is a member of [employer], in [place], but has not attended since COVID precautions were in place. I explained my role and offered support.
[2022-02-21] MEDS: amLODIPine 5 MG TAB PO (20:43)
--- NOTE | 2022-02-21 20:44 | W.PM.PROGNOT ---
Date of Service Date of service: 02/21/22 Time of Service: 10:15 Assessment and Plan Assessment and plan (1) Pneumonia: Status: Acute Assessment and plan: LLL infiltrate. Blood culture growing Gram Pos Cocci in all 4 bottles. Vancomycin initially given in ED and was to be discontinued, but then continued when all 4 blood cx tubes grew a gram positive cocci. The cocci growing ID'd as a strep species so vancomycin d/c'd. Cont Levaquin 750mg Q48 hours (renally adjusted). IS PRN albuterol. Tessalon Perls. (2) Non-ST elevation [place] (NSTEMI): Status: Acute Assessment and plan: Demand ischemia from acute illness likely. Trop trended upward 199 > 202 then downward to 183. Cont his home aspirin. (3) Coronary artery disease: Status: Chronic Assessment and plan: Cont aspirin and statin. (4) Obstructive sleep apnea syndrome: Status: Acute Assessment and plan: Home CPAP if it can be made available. (5) Essential hypertension: Assessment and plan: Cont his home amlodipine, Losartan and HCTZ Monitor BP (6) Diabetes: Assessment and plan: Cont home metformin. Diabetic diet. (7) Discharge planning issues: Status: Acute Assessment and plan: Observation admission. Can forsee discharge tomorrow if improving and is defervescing. Subjective Subjective Patient reports: no new complaints, feels better and afebrile; denies shortness of breath Exam Narrative Exam Narrative: Pleasant elderly male sitting in chair. Const General: cooperative, no acute distress and not lethargic Nutritional Appearance: obese Orientation: alert and oriented x3 Eyes General: appearance normal, both eyes and all related structures Sclera: sclerae normal Neck Neck: full ROM and JVD Resp Effort & Inspection: normal respiratory effort Auscultation: clear to auscultation bilaterally Other: Occasional nonproductive cough. Cardio Jugular venous pressure: no JVD Rate: regular rate Rhythm: regular rhythm Heart Sounds: S1 normal and S2 normal GI Inspection: obesity Palpation: soft and nontender Auscultation: normal bowel sounds Skin General skin exam: no rashes or lesions noted Neuro General: no focal motor deficits Cranial Nerves: facial strength normal Cognition: normal cognition Speech: speech normal Extrem General: no pedal edema and no calf tenderness Psych Appearance: grossly normal Speech and Movement: speech and movement normal Affect: normal affect Attitude: cooperative Objective Last Vital Signs Temp 36.9 C 02/21/22 14:58 Pulse 54 L 02/21/22 14:58 Resp 18 02/21/22 14:58 BP 111/69 02/21/22 14:58 Pulse Ox 97 02/21/22 14:58 Laboratory Results - last 24 hr 02/21/22 02/21/22 05:19 05:19 WBC 2.89 L RBC 3.51 L Hgb 10.8 L Hct 33.5 L MCV 95 MCH 30.8 MCHC 32.2 D RDW 12.8 Plt Count 80 L MPV 10.6 Immature Gran % 0.0 Neutrophils % 55.1 Lymphocytes % 22.8 Monocytes % 10.0 Eosinophils % 11.8 Basophils % 0.3 Nucleated RBC % 0.0 Absolute Neutrophils 1.59 Absolute Lymphocytes 0.66 L Absolute Monocytes 0.29 Absolute Eosinophils 0.34 Absolute Basophils 0.01 Sodium 141 Potassium 4.2 Chloride 109 H Carbon Dioxide 22.7 Anion Gap 9.3 BUN 31 H Creatinine 1.5 H Estimated GFR/1.73 m2 45.62 Glucose 98 Calcium 8.3 L
[2022-02-21] MEDS: Fenofibrate, Micronized 145 MG TAB PO (21:24)
[2022-02-22] MEDS: Normal Saline 1,000 ML 100 ML IV (06:12)
[2022-02-22] MEDS: Tiotropium Bromide-Respimat 10 PUFF INH 2 PUFF IH (07:26)
[2022-02-22 07:43] VITALS: PULSE 60; RESP 18; TEMP 36.9; O2SAT 93
[2022-02-22] MEDS: Rosuvastatin 10 MG TAB 20 MG PO (08:10)
[2022-02-22] MEDS: Aspirin E.C. 81 MG TABEC PO (08:10)
[2022-02-22] MEDS: Omeprazole 20 MG CAPCR PO (08:11)
[2022-02-22] MEDS: Losartan 50 MG TAB 100 MG PO (08:11)
[2022-02-22] MEDS: Spironolactone 25 MG TAB PO (08:11)
[2022-02-22] MEDS: Cetirizine 10 MG TAB PO (08:11)
[2022-02-22] MEDS: Benzonatate 200 MG CAP PO ×2 (08:11→14:16)
[2022-02-22] MEDS: Multivitamin TAB 1 TAB PO (08:11)
[2022-02-22] MEDS: Escitalopram 20 MG TAB PO (08:12)
[2022-02-22] MEDS: hydroCHLOROthiazide 25 MG TAB PO (08:12)
[2022-02-22] MEDS: amLODIPine 10 MG TAB PO (08:12)
--- NOTE | 2022-02-22 10:03 | DSE_ITS ---
DS: Diagnosis Discharge Diagnosis (1) Pneumonia: Status: Acute (2) Non-ST elevation AL (NSTEMI): Status: Acute (3) Coronary artery disease: Status: Chronic (4) Obstructive sleep apnea syndrome: Status: Acute (5) Essential hypertension: (6) Diabetes: (7) Discharge planning issues: Status: Acute Discharge Plan Disposition Patient Disposition: HOME Condition: Stable Discharge Details Reason For Visit: Fever of Unknown Origin Admit Date/Time: 02/21/22 07:15 Admit Provider: Kaz Viera Attending Provider: Kaz Viera Primary Care Provider: Helder Pimentel Hospital Course Hospital Course: This is a 76 yo male with a PMH of CAD, Aortic valve stenosis s/p replacement, sleep apnea, morbid obesity, subarachnoid hemorrhage, PTSD mitral valve disease.? He presented to the ED c/o 3 day h/o fever/chills, cough.? White sputum production.? Home COVID test was negative. Endorsed some loose stool. ? No CP/palpitaitons. No urinary symptoms,? N/V. CXR showed a LLL infiltrate. WBC count 3.69. Plts 83. VBG lactate 1.8, repeat 1.5. Lytes normal. Creatinine 1.9, repeat later in hospital course was 1.5. Troponin 202 > 183. Levaquin and Vancomycin initiated in the ED. His blood cultures (4 bottles) grew streptococcus mitis. He defervesced and felt significant improvement. Echocardiogram: EF of 65%. No valvular vegetations noted. He will discharged on a 5 day course of Augmentin 875mg BID. Follow up with PCP in 1-2 weeks. He will have a repeat CBC in 1 week given mild leukopenia, anemia and thrombocytopenia. Home Meds and New Rx's Prescriptions: New amoxicillin-pot clavulanate 875-125 mg tablet 1 tab PO BID Qty: 10 0RF No Action epinephrine [EpiPen 2-Yuri] 0.3 mg/0.3 mL auto-injector 0.3 mg IM ONCE Qty: 1 2RF escitalopram oxalate [Lexapro] 20 mg tablet 20 mg PO DAILY Qty: 90 3RF omeprazole 20 mg capsule,delayed release(DR/EC) 20 mg PO DAILY multivitamin Tablet 1 tab PO DAILY rxgfmcx-wpxv-hqtud-oreg-capryl 100 mg-150 mg- 50 mg-150 mg capsule 1 cap PO DAILY amoxicillin 500 MG capsule 2,000 mg PO DIRECTED Rx Instructions: 4 TABS PRIOR TO DENTAL aspirin [Aspir-81] 81 MG tablet,delayed release (DR/EC) 1 tab PO DAILY mometasone [Nasonex] 17 GM spray,non-aerosol 2 spry NS BID Label Comments: 10/03/17 uses prn. cooper 06/09/15 not using. cooper diclofenac sodium 100 GM gel 100 gm Topical QID MDD 100 GM Qty: 1 0RF fenofibric acid (choline) [Trilipix] 135 mg capsule,delayed release(DR/EC) 135 mg PO HS Qty: 90 3RF losartan [Cozaar] 100 mg tablet 100 mg PO DAILY Qty: 90 3RF rosuvastatin 20 mg tablet 20 mg PO DAILY Qty: 90 3RF hydrochlorothiazide 25 mg tablet 25 mg PO DAILY Qty: 90 4RF spironolactone 25 mg tablet 25 mg PO DAILY Qty: 90 3RF trazodone 50 MG tablet 50 mg PO hs prn Label Comments: 06/22/17-now taking 100mg HS PRN/pps acetaminophen [Mapap Extra Strength] 500 MG tablet 1,000 mg PO Q6H PRN PRN cetirizine [Zyrtec] 10 mg Tablet 10 mg PO DAILY amlodipine 5 mg Tablet 5 mg PO QPM Rx Instructions: 10mg in the morning, 5mg in the evening amlodipine 10 mg Tablet 10 mg PO QAM Rx Instructions: 10mg morning, 5mg evening per cardiology metformin 500 mg Tablet 500 mg PO DAILY Spiriva with HandiHaler 18 mcg Capsule, W/Inhalation Device 1 cap INHALATION DAILY Discharge Instructions Instructions: Bacterial Pneumonia (GEN) Stand Alone Forms: Nursing Discharge Form Referrals: Helder Pimentel MD [Primary Care Provider] - 03/01/22 1:20 pm Activity:: Activity as Tolerated Equipment/Supplies:: No Equipment Needed Diet:: resume usual home diet Discharge Orders Discharge Orders: Discharge Order (Routine); Ordered 02/22/22 Ordered By: Kaz Viera Other Ambulatory Orders: Complete Blood Count w/Diff (Routine) Timeframe: 1 Week Location: None Selected Ordered By: Kaz Viera DS: Summary Time Spent with Patient providing and/or coordinating discharge services: Greater than 30 minutes Status at Discharge Functional status at discharge: independent ambulation Overall status at discharge: patient is progressing back to baseline Mental Status: mental status grossly normal Speech and Movement: speech and movement normal Mood: congruent mood Affect: normal affect Exam Narrative Exam Narrative: Pleasant elderly male sitting in chair. Const General: cooperative, no acute distress and not lethargic Nutritional Appearance: obese Orientation: alert and oriented x3 Eyes General: appearance normal, both eyes and all related structures Sclera: sclerae normal Neck Neck: full ROM and JVD Resp Effort & Inspection: normal respiratory effort Auscultation: clear to auscultation bilaterally and diminished lung sounds bilaterally in the lower lung carpio Other: Occasional nonproductive cough. Cardio Jugular venous pressure: no JVD Rate: regular rate Rhythm: regular rhythm Heart Sounds: S1 normal and S2 normal GI Inspection: obesity Palpation: soft and nontender Auscultation: normal bowel sounds Skin General skin exam: no rashes or lesions noted Neuro General: no focal motor deficits Cranial Nerves: facial strength normal Cognition: normal cognition Speech: speech normal Extrem General: no pedal edema and no calf tenderness Psych Appearance: grossly normal Mental Status: mental status grossly normal Speech and Movement: speech and movement normal Mood: congruent mood Affect: normal affect Attitude: cooperative DS: Data Vitals/I&O Vitals and I&O: Vital Signs Temperature 36.9 C 02/22/22 07:43 Temperature Source Tympanic 02/22/22 07:43 Pulse 60 02/22/22 07:43 Pulse Rhythm Regular 02/22/22 07:44 Respiratory Rate 18 02/22/22 07:43 Respiratory Effort 02/22/22 07:44 Respiratory Depth Normal 02/22/22 07:44 Respiratory Pattern Normal 02/22/22 07:44 Blood Pressure 142/63 H 02/21/22 20:30 Pulse Oximetry 93 02/22/22 07:43 Oxygen Delivery Method Room Air 02/22/22 07:43 Oxygen Flow Rate 0 02/22/22 07:43 Pain Level 0 02/22/22 07:43 Comment 02/19/22 22:04 Intake & Output 02/21/22 02/21/22 02/22/22 11:59 23:59 11:59 Intake Total 2896.667 / 4301.667 1405 / 4301.667 7916.667 / 1186.667 Output Total 1000 / 1850 850 / 1850 1700 / 1700 Balance 1896.667 / 2451.667 555 / 2451.667 -513.333 / -513.333 Weight 127.7 kg 128 kg Intake: IV 2216.667 / 3026.667 810 / 3026.667 946.667 / 946.667 Oral 680 / 1275 595 / 1275 240 / 240 Output: Urine 1000 / 1850 850 / 1850 1700 / 1700 Other: Urine Color Yellow Yellow Yellow Urine Appearance Clear Clear Clear Urine Odor None None Normal Comment some of the void missed the hat and entered the toilet, 200 measured Stool Size Small Small Small Stool Characteristics Liquid Soft Soft Liquid Brown Voiding Methods Toilet Toilet Toilet Urinal Data Completed and Pending Labs on day of discharge: Preliminary micro results at discharge 02/21/22 05:34 Blood Culture - Preliminary Blood NO GROWTH 24 HOURS 02/21/22 05:19 Blood Culture - Preliminary Blood NO GROWTH 24 HOURS PFSH All Active Problems (Updated 02/22/22 @ 10:02 by Kaz Viera MD) Thrombocytopenia (Chronic) Leukopenia (Acute) Discharge planning issues (Acute) Fever (Acute) Pneumonia (Acute) Non-ST elevation AL (NSTEMI) (Acute) Weakness (Acute) Syncope (Chronic) Coronary artery disease (Chronic) s/p CABG X 2 Status post aortic valve replacement (Acute 09/02/13) Tissue valve replacement. Morbid obesity with BMI of 40.0-44.9, adult (Chronic) Sleep apnea (Chronic) Note that he has not been using his machine for several months to a year now. Aortic valve stenosis (Acute) valve replacement [facility] [place] 1213. CABG x 1 also Diverticulitis (Acute) Morbid obesity (Acute) Obstructive sleep apnea syndrome (Acute) C-PAP Rheumatic aortic stenosis (Acute) Subarachnoid hemorrhage (Acute 08/23/06) PTSD (post-traumatic stress disorder) (Acute) Mitral valve disease (Acute) Medical History Arthritis CAD (coronary artery disease) Cholelithiasis pt. denies this COVID-19 11/09/21 Depression Diabetes Recently diagnosis, diet controlled. Diverticulitis Essential hypertension (07/31/13) Fatty liver Gastroesophageal reflux disease History of CVA (cerebrovascular accident) 2010 sub acute left cerebral stroke History of tobacco use Hyperlipidemia Hypertension Insomnia Osteoarthritis Pancreatitis Pneumonia (09/08/13) Psoriasis Psoriatic arthritis (04/25/17) Type 2 diabetes mellitus without complication, with custodial current use of insulin pump (06/22/17) Surgical History Colonoscopy - MAC (~06/30/19) 04/28-Diverticulosis 07/31-neg 2018 - negative 2021 - negative Colostomy 06/30/05 10/24/05 REVERSE COLOSTOMY Endoscopic Ethmoid (A&P) (~1997) History of colostomy History of surgical procedure PAMICULECTOMY (02/23/09) Status post aorto-coronary artery bypass graft F/U with [facility] last seen 04/2021 Status post hip replacement Status post panniculectomy Total replacement of hip 2001 RIGHT 2008 LEFT Family History Mother Essential hypertension Personal history of malignant neoplasm Father Essential hypertension Sister No problems noted. Sister No problems noted. Brother No problems noted. Brother No problems noted. Brother No problems noted. Social History Smoking/Tobacco Use Status: Former Tobacco Use Quit Date: 09/24/99 Smoking risk assessment performed?: Yes Alcohol Intake: current Alcohol Intake frequency: holidays/special occasions only Alcohol type: beer and hard liquor Drug use: Never Substance use type: does not use Current gender identity: male Do you feel safe at home: Yes Additional Social history: unable t to assess zabrina
--- NOTE | 2022-02-22 10:28 | PDOC.CMDIS ---
- If Service Date Differs Date of service: 02/22/22 Time of Service: 10:28 LACE Index Scoring Tool - Questions: Length of Stay (in days): 1 Acuity (Admit via E.D.?): Yes Comorbidities: Previous M.I., Cerebrovascular Disease, Diabetes w/o Complication E.D. Visits: 1 - Answers: Total Score: 8 Risk of Readmission: Low Risk Care Management Discharge Reason for Hospitalization: Fever, Pneumonia, Non-ST elevation AR (NSTEMI), Weakness, Syncope Discharge Plan: Raghu is discharged home via private vehicle with Cathy. Raghu will take PO abx as prescribed, RX was sent to [facility]'s. Raghu will resume activity as tolerated and usual home diet. Raghu will follow up with his PCP as scheduled and have repeat labs in 1 week. Patient/Family Education Needs: Review discharge instructions, limitations, medication's and plan to follow up with community provider's. ask me three.
[2022-02-22] MEDS: Acetaminophen 325 MG TAB PO (14:16)
[2022-02-22 15:34] VITALS: BP 139/73; PULSE 60; RESP 19; TEMP 36.5; O2SAT 96
== END 2022-02-22 16:24 | disposition home or self-care (01) | DRG 193 ==
LOC: ER 07:38 → MS 08:43
PROVIDERS: Admitting Provider Family Medicine; Emergency Provider Student in an Organized Health Care Education/Training Program; PCP Family Medicine; Visit Provider Family Medicine
DX: J15.4 Pneumonia due to other streptococci (principal); I21.A1 Myocardial infarction type 2; Z68.41 Body mass index [BMI] 40.0-44.9, adult; R55 Syncope and collapse; I25.10 Atherosclerotic heart disease of native coronary artery without angina pectoris; I34.0 Nonrheumatic mitral (valve) insufficiency; F43.10 Post-traumatic stress disorder, unspecified; R19.7 Diarrhea, unspecified; R53.1 Weakness; E66.01 Morbid (severe) obesity due to excess calories; G47.33 Obstructive sleep apnea (adult) (pediatric); E11.9 Type 2 diabetes mellitus without complications; F32.A Depression, unspecified; I10 Essential (primary) hypertension; K76.0 Fatty (change of) liver, not elsewhere classified; K21.9 Gastro-esophageal reflux disease without esophagitis; E78.5 Hyperlipidemia, unspecified; G47.00 Insomnia, unspecified; Z96.41 Presence of insulin pump (external) (internal); L40.59 Other psoriatic arthropathy; Z96.643 Presence of artificial hip joint, bilateral; Z95.1 Presence of aortocoronary bypass graft; Z95.3 Presence of xenogenic heart valve; Z98.0 Intestinal bypass and anastomosis status; Z86.73 Personal history of transient ischemic attack (TIA), and cerebral infarction without residual deficits; Z86.16 Personal history of COVID-19; Z87.891 Personal history of nicotine dependence; D64.9 Anemia, unspecified; D69.6 Thrombocytopenia, unspecified; D72.819 Decreased white blood cell count, unspecified
CPT/HCPCS: 36415; 80048; 80053; 84145; 87040; 87077; 87493; 87637; 93005; 94640; 96361; 96365; 96366; 96368; 99285; 71045; 81003; 83605; 84443; 84484; 85025; 93010; 93306; 94664; 94667; 99220; 99226; 99232; 99239; G0378; J1956

== ENCOUNTER 2022-02-28 01:42 | Outpatient (CLI) | payer MEDICARE, BC, SELFPAY ==
[2022-02-28 13:35] LABS: HCT 33.6 % (40.0-50.0); HGB 11.2 g/dL (13.5-17.5); MCH 30.9 pg (27.0-33.0); MCHC 33.3 % (32.0-36.0); MCV 93 fL (80-95); Platelet Count 162 10^3/uL (130-400); RBC 3.62 10^6/uL (4.36-5.78); RDW 12.8 % (11.8-14.1); RDW-SD 43.8 fL; WBC 4.25 10^3/uL (4.4-10.8)
[2022-02-28 13:52] LABS: Hemoglobin A1C 6.2 % (<5.7)
[2022-02-28 15:04] LABS: ALT 24 U/L (16-63); AST 41 U/L (15-37); Albumin 2.8 g/dL (3.4-5.0); Alkaline Phosphatase 46 U/L (46-116); Anion Gap 10.3 mmol/L (3-11); BUN 27 mg/dL (7-18); Bilirubin, Total 0.4 mg/dL (0.2-1.0); CO2 23.7 mmol/L (21.0-32.0); CREATININE 1.4 mg/dL (0.70-1.30); Calcium 9.4 mg/dL (8.5-10.1); Chloride 106 mmol/L (98-107); Estimated GFR 49.41 (mL/min/1.73m2); Glucose 114 mg/dL (74-106); Potassium 4.2 mmol/L (3.5-5.1); Sodium 140 mmol/L (136-145); Total Protein 6.9 g/dL (6.4-8.2)
[2022-02-28 15:04] LABS: COMMENT (LAB VIEW ONLY) 204.32 mg/dL; Microalb ug/mg Crea 3.4 ug/mg Cr
== END 2022-02-28 01:43 | disposition home or self-care (01) ==
LOC: LBO 01:42
PROVIDERS: Emergency Medicine; PCP Family Medicine; Visit Provider Family Medicine
DX: I10 Essential (primary) hypertension (principal); I25.10 Atherosclerotic heart disease of native coronary artery without angina pectoris; E11.9 Type 2 diabetes mellitus without complications; Z96.41 Presence of insulin pump (external) (internal); E66.01 Morbid (severe) obesity due to excess calories
CPT/HCPCS: 36415; 80053; 85027; 82043; 82570; 83036

== ENCOUNTER 2022-03-13 02:53 | Outpatient (CLI) | payer MEDICARE, BC, SELFPAY ==
[2022-03-13 13:25] LABS: Abs Immature Grans 0.01 10^3/uL (0.0-0.06); Absolute Basophil Count 0.01 10^3/uL (0.0-0.2); Absolute Eosinophil Count 0.34 10^3/uL (0.0-0.7); Absolute Lymphocyte Count 0.53 10^3/uL (1.2-3.4); Absolute Monocyte Count 0.23 10^3/uL (0.1-0.8); Basophils % 0.3; Eosinophils % 8.5; HCT 34.3 % (40.0-50.0); HGB 10.9 g/dL (13.5-17.5); Immature Grans % 0.3; Lymphocytes % 13.3; MCH 29.6 pg (27.0-33.0); MCHC 31.8 % (32.0-36.0); MCV 93 fL (80-95); MPV 9.7 fL (8.0-11.0); Monocytes % 5.8; Neutrophils % 71.8; Platelet Count 143 10^3/uL (130-400); RBC 3.68 10^6/uL (4.36-5.78); RDW 13.2 % (11.8-14.1); RDW-SD 44.6 fL; WBC 3.99 10^3/uL (4.4-10.8)
[2022-03-13 13:30] LABS: Absolute Neutrophil Count 2.86 10^3/uL (1.2-6.7)
[2022-03-13 13:42] LABS: Anion Gap 10.1 mmol/L (3-11); BUN 38 mg/dL (7-18); CO2 23.9 mmol/L (21.0-32.0); CREATININE 1.8 mg/dL (0.70-1.30); Calcium 8.7 mg/dL (8.5-10.1); Chloride 103 mmol/L (98-107); Estimated GFR 36.97 (mL/min/1.73m2); Glucose 168 mg/dL (74-106); Potassium 4.2 mmol/L (3.5-5.1); Sodium 137 mmol/L (136-145)
== END 2022-03-13 02:54 | disposition home or self-care (01) ==
LOC: LBO 02:53
PROVIDERS: Family Medicine; PCP Family Medicine; Visit Provider Family Medicine
DX: D64.9 Anemia, unspecified (principal); N18.30 Chronic kidney disease, stage 3 unspecified; R78.81 Bacteremia; G47.30 Sleep apnea, unspecified
CPT/HCPCS: 36415; 80048; 87040; 85025

== ENCOUNTER 2022-03-25 15:22 | Outpatient (REF) | payer MEDICARE, BC, SELFPAY | END 2022-03-25 15:23 | disposition home or self-care (01) | LOC: LBN 15:22 | PROVIDERS: PCP Family Medicine; Visit Provider Nurse Practitioner Family ==

== ENCOUNTER 2023-02-14 14:58 | Outpatient (RCR) | payer MEDICARE, BC, SELFPAY | END 2023-02-21 23:59 | disposition home or self-care (01) | LOC: CR 14:58 | PROVIDERS: PCP Family Medicine; Visit Provider Internal Medicine Cardiovascular Disease | DX: I10 Essential (primary) hypertension (principal) ==

== ENCOUNTER 2023-03-01 07:42 | Outpatient (CLI) | payer MEDICARE, BC, SELFPAY ==
--- NOTE | 2023-03-01 07:42 | RT.EKG_ITS ---
APPROVED REPORT Exam: Resting ECG Reason for Exam: CAD Patient Location: O HR:75 bpm ECG Measurements Heart Rate 75 AXIS NV 173 P 0 QRSd 138 QRS 0 QT 400 T -52 QTc 447 Conclusion Atrial-sensed ventricular-paced complexes...other complexes also detected No further analysis attempted due to paced rhythm Artifact in lead(s) I,II,III,aVR,aVL,aVF
== END 2023-03-01 07:43 | disposition home or self-care (01) ==
LOC: DI.CARD 07:42
PROVIDERS: PCP Family Medicine; Visit Provider Internal Medicine Cardiovascular Disease
DX: I25.10 Atherosclerotic heart disease of native coronary artery without angina pectoris (principal)
CPT/HCPCS: 93010

== ENCOUNTER → 2023-03-01 10:15 | Outpatient (BNVA) | payer MEDICARE, BC, SELFPAY | PROVIDERS: PCP Family Medicine; Referring Provider Family Medicine; Visit Provider Internal Medicine Cardiovascular Disease | DX: I25.810 Atherosclerosis of coronary artery bypass graft(s) without angina pectoris (principal); Z95.810 Presence of automatic (implantable) cardiac defibrillator; Z95.3 Presence of xenogenic heart valve | CPT/HCPCS: 93005; 99204 ==

== ENCOUNTER 2023-03-23 13:22 | Outpatient (RCR) | payer MEDICARE, BC, SELFPAY | END 2023-03-23 23:59 | disposition home or self-care (01) | LOC: CR 13:22 | PROVIDERS: PCP Family Medicine; Visit Provider Internal Medicine Cardiovascular Disease | DX: I25.2 Old myocardial infarction (principal); Z95.4 Presence of other heart-valve replacement; Z51.89 Encounter for other specified aftercare | CPT/HCPCS: S9472 ==

== ENCOUNTER 2023-04-02 13:00 | Outpatient (RCR) | payer MEDICARE, BC, SELFPAY | END 2023-04-23 23:59 | disposition home or self-care (01) | LOC: CR 13:00 | PROVIDERS: PCP Family Medicine; Visit Provider Internal Medicine Cardiovascular Disease | DX: I21.4 Non-ST elevation (NSTEMI) myocardial infarction (principal); Z95.2 Presence of prosthetic heart valve; Z51.89 Encounter for other specified aftercare | CPT/HCPCS: S9472 ==

== ENCOUNTER 2023-04-25 15:55 | Outpatient (REF) | payer MEDICARE, BC, SELFPAY ==
--- NOTE | 2023-04-25 11:40 | SKI_PTH ---
PATIENT: Raghu Rosenthal LOC: [facility] U#:[id number] AGE/SX: 77/M ROOM: RE04/25/[address]: Gina Barrett : 1945 BED: DIS: 04/26/2023 SPEC #: [id number] RECD: 04/26/23 16:01 STATUS: OMAR REBishop #: [id number] SIENNA: 04/25/23 11:[address]: Gina Barrett DEPT: Surgical Specimen RECD BY: Kristen Guillen ENTERED: 04/26/23 16:02 SP TYPE: MAGUI GLASGOW DR: Doug Valderrama MD Tissues: 1 - SKIN BIOPSY(SHAVE/PUNCH) Procedures: SKIN LEVEL 4 SPECIAL STAIN 1 Comments: [id number]
== END 2023-04-26 12:43 | disposition home or self-care (01) ==
LOC: LBN 15:55
PROVIDERS: PCP Family Medicine; Visit Provider Family Medicine
DX: L20.9 Atopic dermatitis, unspecified (principal)
CPT/HCPCS: 88305; 88312

== ENCOUNTER 2023-05-30 09:16 | Outpatient (CLI) | payer MEDICARE, BC, SELFPAY ==
--- NOTE | 2023-05-30 09:15 | RT.EKG_ITS ---
APPROVED REPORT Exam: Resting ECG Reason for Exam: cardiac evaluation Patient Location: O HR:75 bpm ECG Measurements Heart Rate 75 AXIS LA 144 P -51 QRSd 157 QRS 94 QT 467 T [id number] QTc 522 Conclusion Atrial-sensed ventricular-paced rhythm...ventricular pacing tracks p-waves No further analysis attempted due to paced rhythm
== END 2023-05-30 09:17 | disposition home or self-care (01) ==
LOC: DI.CARD 09:18
PROVIDERS: PCP Family Medicine; Visit Provider Internal Medicine Cardiovascular Disease
DX: I21.4 Non-ST elevation (NSTEMI) myocardial infarction; Z95.3 Presence of xenogenic heart valve; Z13.6 Encounter for screening for cardiovascular disorders
CPT/HCPCS: 93010

== ENCOUNTER → 2023-05-30 09:18 | Outpatient (BNVA) | payer MEDICARE, BC, SELFPAY | PROVIDERS: PCP Family Medicine; Referring Provider Family Medicine; Visit Provider Internal Medicine Cardiovascular Disease | DX: Z95.0 Presence of cardiac pacemaker (principal) | CPT/HCPCS: 93005; 93281 ==

== ENCOUNTER → 2023-06-18 01:18 | Outpatient (CLI) | payer MEDICARE, BC, SELFPAY ==
--- NOTE | 2023-06-18 08:30 | DI.US_ITS ---
APPROVED REPORT EXAM: Comprehensive 2D, Doppler, and color-flow Echocardiogram Patient Location: Out-Patient [employer] Observer: Camron Jimenez RDCS (AE) Indications: s/p TAVR, check LV function, sleep apnea, hf with reduced EF Other Information Study Quality: Adequate. Technically limited study due to body habitus. Conclusion Technically difficult but adequate study Normal left ventricular wall thickness and chamber size. Measured EF is 40% but visually EF appears closer to 50% without segmental wall motion abnormalities Normal right ventricular size and systolic function Both atria are normal in size Device lead noted in the right heart There is a bioprosthetic aortic valve. Mean gradient is 5 mmHg. There is no aortic regurgitation Normal mitral valve with mild regurgitation Normal tricuspid valve with trace to mild regurgitation. Estimated right ventricular systolic pressu re is 27 mmHg Wall motion Left Ventricle The left ventricle is normal size. Left ventricular systolic function is mild to moderately decreased . There is normal left ventricular wall thickness. There is global hypokinesis of the left ventricle. There is no ventricular septal defect visualized. LVEF is 40%. Visually appears 50% Right Ventricle The right ventricle is normal size. Right ventricular systolic function is grossly normal. Pacemaker lead is present in the right ventricle. Atria Left atrium is mildly dilated. Right atrium is mildly dilated. The interatrial septum is intact with no evidence for an atrial septal defect. Aortic Valve Bioprosthetic aortic valve is present. No aortic regurgitation is present. Mitral Valve The mitral valve is normal in structure. No evidence of mitral valve stenosis. Mild mitral regurgitat ion. Tricuspid Valve The tricuspid valve is normal in structure. There is no tricuspid valve stenosis. Trace to mild tricu spid regurgitation. Pulmonic Valve The pulmonary valve is normal in structure. There is no pulmonic valvular stenosis. Mild pulmonic reg urgitation. Great Vessels The aortic root is normal in size. The ascending aorta is normal in size. Aortic arch is not well vis ualized. IVC is normal in size and collapses >50% with inspiration. Pericardium There is no pericardial effusion. 2D Dimensions IVSD d PLAX 0.97 cm M: 0.6-1.2 Ao Root d 2.11 cm M: 3.1 - 3.7 LVPW d PLAX 1.05 cm M: 0.6 - 1.2 Ao Asc Diam d 2.88 cm M: 2.6 - 3.4 LVID d PLAX 5.01 cm M: 4.2 - 5.8 LVDs 4.02 cm M: 2.5 - 4.0 LV EF Teichholz 40.4 % FS 19.79 % LV EDV (Teich) 118.9 mL LV ESV (Teich) 70.8 mL Stroke Vol Index (Teich) 20.90 M-Mode TAPSE 1.63 cm (M/F) >1.7 Auto EF LV EDV A4C 136.9 mL LV EDV A2C 177.3 mL LV EDV BP 155.8 mL LV ESV A4C 81.7 mL LV ESV A2C 105.1 mL LV ESV BP 91.1 mL LVEF(%) A4C 40.3 % LVEF(%) A2C 40.7 % LVEF(%) BP 41.5 % LV SV A4C 55.2 ml LV SV A2C 72.3 ml LV SV BP 64.6 ml LV CO A4C 3.9 L/min LV CO A2C 5.1 L/min LV CO BP 4.5 L/min HR A4C 70.04 BPM HR A2C 70.04 BPM LV EDV Index (BP) LA Volume LA Length A4C 5.5 cm LA Length A2C LA Area A4C s 21.22 cm2 LA Area A2C s LA Vol A4C A-L 69.39 mL LA Vol A2C A-L LA Vol Biplane A-L LA Vol A4C MOD 65.8 mL LA Vol A2C MOD LA Vol BP MOD RA Volume RA Area A4C 22.8 cm2 RA ESV A4C (A-L) 82.8mL RA Vol/BSA A4C A-L RA Length A4C 5.4 cm RA ESV A4C (MOD) 72.9mL LV Diastology MV E' medial 0.056 (>0.07 m/s) MV E Vmax 0.62 (0.4-1.3 m/s) MV E/E' MED 11.10 (<14) MV A Vmax 1.05 (0.4-1.3 m/s) MV E' lateral 0.103 (>0.1 m/s) E/A Ratio 0.6 MV E/E' LAT 6.05 (<14) MV E' Average 0.080 m/s MV E/E'(average) 7.84 Aortic Valve AoV Vmax 1.51 m/s LVOT Vmax 1.23 m/s AoV Peak Grad 9.2 mmHg LVOT Peak Grad 6.0 mmHg AoV Area (Vmax) 1.79 cm2 LVOT VTI 0.254 m AoV VTI 0.319 m LVOT Mean Grad 3.6 mmHg AoV Mean Enoch. 1.09 m/s LVOT SV 56.28 mL AoV Mean Grad 5.1 mmHg LVOT Diam s 1.65 cm AoV Area (VTI) 1.76 cm2 Velocity Ratio 0.81 Mitral Valve MV DT 125 (160-240 msec) MV Vmax TIPS 1.12 m/s MV Mean Grad 1.8 (<2mmHg) MV VTI 0.319 m Pulmonary Valve PV Vmax 1.08 (0.5-1.5 m/s) RVOT Vmax 0.66 m/s PV Peak Grad 4.6 mmHg RVOT Peak Gr. 1.7 mmHg PV Mean Enoch 0.70 m/s RVOT VTI 0.133 m PV Mean Grad 2.3 mmHg RVOT Mean Gr. 0.9 mmHg Tricuspid Valve RA Pressure 3.00 mmHg TR Vmax 2.45 m/s TR Peak Grad 24.0 mmHg RVSP (TR) 27.1 mmHg
== END ==
PROVIDERS: PCP Family Medicine; Visit Provider Internal Medicine Cardiovascular Disease
DX: G47.30 Sleep apnea, unspecified (principal); I50.20 Unspecified systolic (congestive) heart failure; Z95.3 Presence of xenogenic heart valve
CPT/HCPCS: 93306; 71046

== ENCOUNTER → 2023-06-18 01:18 | Outpatient (CLI) | payer MEDICARE, BC, SELFPAY ==
--- NOTE | 2023-06-18 14:24 | DI.RAD_ITS ---
Exam(s) XR CHEST 2V PA LATERAL EXAM: XR CHEST 2V PA LATERAL CLINICAL HISTORY: evaluate pacemaker lead position.biventricular icd,z95.810. TECHNIQUE: 2D digital imaging was performed. COMPARISON: CR,XR XR PORTABLE CHEST AP from 02/19/2022 FINDINGS: 2 views: Again noted are sternotomy wires and evidence of previous CABG and there is now bipolar left subclavi an pacemaker in place. Lead tips in right atrium and right ventricle. Heart size is normal. The mediastinum is not widened. No evidence of pulmonary edema. No infiltrates on the right side. Mild increased markings in the le ft lower lobe posterior basal segment. Slight blunting of left costophrenic angle indicating small a mount of left pleural fluid. IMPRESSION: Mild left lower lobe infiltrate and small left pleural effusion. Sternotomy. Pacemaker. No pulmonary edema evident. Normal heart size. DATA REPOSITORY: RADIATION DOSE DELIVERED:
== END ==
PROVIDERS: PCP Family Medicine; Visit Provider Internal Medicine Cardiovascular Disease
DX: Z95.810 Presence of automatic (implantable) cardiac defibrillator (principal); J91.8 Pleural effusion in other conditions classified elsewhere
CPT/HCPCS: 71046

== ENCOUNTER 2023-06-22 09:55 | Outpatient (RCR) | payer MEDICARE, BC, SELFPAY | END 2023-06-23 23:59 | disposition home or self-care (01) | LOC: CR 09:55 | PROVIDERS: PCP Family Medicine; Visit Provider Internal Medicine Cardiovascular Disease | DX: I25.10 Atherosclerotic heart disease of native coronary artery without angina pectoris; Z51.89 Encounter for other specified aftercare; Z95.5 Presence of coronary angioplasty implant and graft | CPT/HCPCS: S9472 ==

== ENCOUNTER 2023-07-23 09:13 | Outpatient (RCR) | payer MEDICARE, BC, SELFPAY | END 2023-07-24 23:59 | disposition home or self-care (01) | LOC: CR 09:13 | PROVIDERS: PCP Family Medicine; Visit Provider Internal Medicine Cardiovascular Disease | DX: I25.10 Atherosclerotic heart disease of native coronary artery without angina pectoris (principal); Z51.89 Encounter for other specified aftercare | CPT/HCPCS: S9472 ==

== ENCOUNTER → 2023-08-03 12:59 | Outpatient (BNVA) | payer MEDICARE, BC, SELFPAY | PROVIDERS: PCP Family Medicine; Referring Provider Family Medicine; Visit Provider Internal Medicine Cardiovascular Disease | DX: I25.810 Atherosclerosis of coronary artery bypass graft(s) without angina pectoris (principal); Z95.0 Presence of cardiac pacemaker; Z95.2 Presence of prosthetic heart valve | CPT/HCPCS: 99213 ==

== ENCOUNTER 2023-08-06 09:57 | Outpatient (RCR) | payer MEDICARE, BC, SELFPAY | END 2023-08-23 23:59 | disposition home or self-care (01) | LOC: CR 09:57 | PROVIDERS: PCP Family Medicine; Visit Provider Internal Medicine Cardiovascular Disease | DX: I10 Essential (primary) hypertension (principal); I25.10 Atherosclerotic heart disease of native coronary artery without angina pectoris; E78.5 Hyperlipidemia, unspecified; Z51.89 Encounter for other specified aftercare | CPT/HCPCS: S9472 ==

== ENCOUNTER 2023-08-29 13:03 | Outpatient (CLI) | payer MEDICARE, BC, SELFPAY ==
--- NOTE | 2023-08-29 13:00 | RT.EKG_ITS ---
APPROVED REPORT Exam: Resting ECG Reason for Exam: pacemaker Patient Location: O HR:70 bpm ECG Measurements Heart Rate 70 AXIS AL 199 P 29 QRSd 158 QRS 118 QT 441 T -37 QTc 476 Conclusion Atrial-sensed ventricular-paced complexes...other complexes also detected No further analysis attempted due to paced rhythm Baseline wander in lead(s) II,III,aVF
== END 2023-08-29 13:04 | disposition home or self-care (01) ==
LOC: DI.CARD 13:04
PROVIDERS: PCP Family Medicine; Visit Provider Internal Medicine Cardiovascular Disease
DX: Z95.0 Presence of cardiac pacemaker (principal)
CPT/HCPCS: 93010

== ENCOUNTER → 2023-08-29 13:52 | Outpatient (BNVA) | payer MEDICARE, BC, SELFPAY | PROVIDERS: PCP Family Medicine; Referring Provider Family Medicine; Visit Provider Internal Medicine Cardiovascular Disease | DX: Z45.018 Encounter for adjustment and management of other part of cardiac pacemaker (principal); I50.1 Left ventricular failure, unspecified | CPT/HCPCS: 93005; 93281 ==

== ENCOUNTER → 2023-12-28 01:20 | Outpatient (CLI) | payer MEDICARE, BC, SELFPAY ==
--- NOTE | 2023-12-28 07:30 | DI.RAD_ITS ---
Exam(s) XR CHEST 2V PA LATERAL EXAM: XR CHEST 2V PA LATERAL CLINICAL HISTORY: persistent cough w/ phlegm,r05.3. TECHNIQUE: 2D digital imaging was performed. COMPARISON: CR XR CHEST 2V PA LATERAL from 06/18/2023 FINDINGS: 2 views: Again noted are sternotomy wires, aortic valve TAVR, left subclavian pacemaker wires and a circular d ensity in the posterior heart best seen on the lateral view, unchanged. Heart size is upper normal, unchanged in the mediastinum is not widened. There is a new nodular infiltrate in the right parahilar region which measures approximately 3 x 1.8 cm. Mild increased markings in left lower lobe retrocardiac region are also noted. No large pleural effusions. No pulmonary edema. IMPRESSION: There is a new nodular infiltrate in the right parahilar region measuring approximately 3 x 1.8 cm. Infectious versus neoplastic. Correlation history recommended. Increased left lower lobe markings retrocardiac region are unchanged from 06/18/2023. Cardiac findings as above. No evidence of pulmonary edema. DATA REPOSITORY: RADIATION DOSE DELIVERED:
== END ==
PROVIDERS: PCP Family Medicine; Visit Provider Family Medicine
DX: R05.3 Chronic cough (principal); R91.8 Other nonspecific abnormal finding of lung field; Z95.0 Presence of cardiac pacemaker; Z95.4 Presence of other heart-valve replacement
CPT/HCPCS: 71046

== ENCOUNTER → 2024-01-22 04:22 | Outpatient (CLI) | payer MEDICARE, BC, SELFPAY ==
--- NOTE | 2024-01-22 11:14 | DI.RAD_ITS ---
Exam(s) XR CHEST 2V PA LATERAL EXAM: XR CHEST 2V PA LATERAL CLINICAL HISTORY: reassess infiltrate,R91.8 TECHNIQUE: 2D digital imaging was performed. Two views. COMPARISON: CR XR CHEST 2V PA LATERAL from 10/14/2018 CR,XR XR PORTABLE CHEST AP from 02/19/2022 CR XR CHEST 2V PA LATERAL from 06/18/2023 US US ECHOCARDIOGRAM from 06/18/2023 CR XR CHEST 2V PA LATERAL from 12/28/2023 FINDINGS: HEART: Mildly enlarged. Prior CABG. Pacemaker. Aorta: Not dilated.Proximal aortic stent. Aortic valve replacement. PULMONARY VASCULATURE: Normal. LUNGS: Spiculated density right upper lobe. This appears smaller when compared with the previous exa m however a chest CT is recommended for further evaluation. PLEURAL SPACE: Left lower lobe pleural scarring. BONE:Unremarkable for age. Soft tissues: Unremarkable. IMPRESSION: Left basilar pleural scarring. Spiculated density right upper lobe. Chest CT recommended. Unexpected findings. DATA REPOSITORY: RADIATION DOSE DELIVERED:
== END ==
PROVIDERS: PCP Family Medicine; Visit Provider Family Medicine
DX: R91.8 Other nonspecific abnormal finding of lung field (principal)
CPT/HCPCS: 71046

== ENCOUNTER → 2024-01-28 04:19 | Outpatient (CLI) | payer MEDICARE, BC, SELFPAY ==
--- NOTE | 2024-01-28 08:20 | DI.CT_ITS ---
Exam(s) CT CHEST WO EXAM: CT CHEST WO CLINICAL HISTORY: assess RUL nodule seen on cxr,R91.1. TECHNIQUE: Imaging protocol: Axial computed tomography images were obtained and coronal and sagittal reformatted images were created and reviewed. CONTRAST MATERIAL: Noncontrast COMPARISON: CR CHEST 2 VIEWS PA,LAT from 04/09/2014 CT CHEST WITHOUT CONTRAST from 04/13/2014 CR XR CHEST 2V PA LATERAL from 06/18/2023 CR XR CHEST 2V PA LATERAL from 12/28/2023 CR XR CHEST 2V PA LATERAL from 01/22/2024 FINDINGS: Pulmonary parenchyma: Elongated masslike density in the right upper lobe measuring 3.5 by 0.9 by 1.2 cm. There is mild bronchial occlusion within the mass. Of 4 millimeter nodule anterior left upper l obe. Scarring at left lung base. No consolidation. Emphysema: Upper lobe emphysematous changes.. Tracheobronchial tree: No mucous plugging. No bronchiectasis . Interstitial changes: None. Pleura: No effusion or pneumothorax. Pleural thickening at left lung base. Heart: The heart is mildly dilated. The coronary arteries show moderate to severecalcifications. Aorta: Thoracic aorta non-dilated. moderateatherosclerotic changes. Aortic valve prosthesis. Lymph nodes: Scattered tiny mediastinal lymph. Bones: Sternal wires. Degenerative changes are seen with flowing endplate osteophytes in the spine.. No evidence of compression fracture. Upper abdomen: Cholelithiasis. Liver appears cirrhotic. Spleen mildly enlarged. Soft tissues: Pacemaker over left pectoral muscle. IMPRESSION: Elongated right upper lobe mass is suspicious for malignancy. Unexpected findings RADIATION DOSE DELIVERED: 880.92mGy.cm Total DLP 880.92mGy.cm Total DLP DATA REPOSITORY: All CT scans at this facility are submitted to the National Radiology Data Registry (NRDR) Dose Index Registry (DIR) with the [employer] ([employer]). RADIATION OPTIMIZATION: All CT scans at this facility use at least one of these dose optimization te chniques: automated exposure control; mA and/or kV adjustment per patient size (includes targeted exa ms where dose is matched to clinical indication); or iterative reconstruction.
== END ==
PROVIDERS: PCP Family Medicine; Visit Provider Family Medicine
DX: R91.1 Solitary pulmonary nodule (principal); R91.8 Other nonspecific abnormal finding of lung field; J43.8 Other emphysema; Z95.2 Presence of prosthetic heart valve
CPT/HCPCS: 71250

== ENCOUNTER 2024-01-28 08:57 | Outpatient (CLI) | payer MEDICARE, BC, SELFPAY ==
[2024-01-28 12:35] LABS: CREATININE 1.5 mg/dL (0.70-1.30); Estimated GFR 47.65 (mL/min/1.73m2); Potassium 4.8 mmol/L (3.5-5.1)
== END 2024-01-28 08:58 | disposition home or self-care (01) ==
LOC: LOS 08:58
PROVIDERS: PCP Family Medicine; Visit Provider Family Medicine
DX: I10 Essential (primary) hypertension (principal)
CPT/HCPCS: 36415; 71250; 82565; 84132

== ENCOUNTER → 2024-02-01 13:31 | Outpatient (BNVA) | payer MEDICARE, BC, SELFPAY | PROVIDERS: PCP Family Medicine; Visit Provider Internal Medicine Cardiovascular Disease | DX: I25.810 Atherosclerosis of coronary artery bypass graft(s) without angina pectoris (principal); Z95.0 Presence of cardiac pacemaker; Z95.2 Presence of prosthetic heart valve | CPT/HCPCS: 99213 ==

== ENCOUNTER → 2024-02-19 09:23 | Outpatient (BNVA) | payer MEDICARE, BC, SELFPAY | PROVIDERS: PCP Family Medicine; Referring Provider Family Medicine; Visit Provider Student in an Organized Health Care Education/Training Program | DX: J44.9 Chronic obstructive pulmonary disease, unspecified (principal); R91.8 Other nonspecific abnormal finding of lung field | CPT/HCPCS: 99215 ==

== ENCOUNTER 2024-03-04 05:25 | Outpatient (CLI) | payer MEDICARE, BC, SELFPAY ==
[2024-03-04] MEDS: Inhaler, Assist Device 1 EACH MC (14:18)
[2024-03-04] MEDS: Levalbuterol HFA 15 GM INH 4 PUFF IH (14:18)
--- NOTE | 2024-03-07 09:40 | W.PFT ---
Date of service: 03/04/24 Time of Service: 13:06 Pulmonary Function Test Result Indications: COPD Interpretation Spirometry: There is moderate airflow limitation. No bronchodilator response. Lung Volumes: Normal lung volumes Diffusion Capacity: Decreased diffusion Airway Pressure: Normal airways resistance Impression Moderate airflow obstruction with a decreased diffusion. Clinical Correlation therefore is recommended.
== END 2024-03-04 05:26 | disposition home or self-care (01) ==
PROVIDERS: PCP Family Medicine; Visit Provider Student in an Organized Health Care Education/Training Program
DX: J44.9 Chronic obstructive pulmonary disease, unspecified (principal)
CPT/HCPCS: 94060; 94726; 94729

== ENCOUNTER 2024-03-10 12:28 | Emergency (ER) | payer MEDICARE, BC, SELFPAY ==
[2024-03-10 12:34] VITALS: BP 107/92; PULSE 69; RESP 20; TEMP 36.6; O2SAT 98
--- NOTE | 2024-03-10 12:39 | W.ED.GENAD ---
Discharge Plan Disposition Patient Disposition: Home Condition: Stable Discharge Details Clinical Impression: Contusion of right buttock, Right hip pain Primary Care Provider: Doug Valderrama ED Provider: Miller Lopez Home Meds and New Rx's Prescriptions: Continued escitalopram oxalate [Lexapro] 20 mg tablet 20 mg PO DAILY Qty: 90 3RF triamcinolone acetonide 0.1 % cream 1 applic topical BID Qty: 80 0RF nystatin 100,000 unit/gram powder 1 applic topical DAILY PRN (Reason: groin rash) Qty: 60 1RF Dupixent Pen 300 mg/2 mL pen injector 300 mg subcut Q2W Qty: 4 0RF carvedilol 3.125 mg tablet 12.5 mg PO ONCE Rx Instructions: must administer with a meal/food per [facility] diclofenac sodium 3 % gel 100 g Topical QID PRN torsemide 20 mg tablet 40 mg PO QAM Rx Instructions: dose reduced [facility] 08/21/23 trazodone 100 mg tablet 50 mg PO QHS PRN Spiriva Respimat 2.5 mcg/actuation mist 2 inh inhalation DAILY cholecalciferol (vitamin D3) 25 mcg (1,000 unit) tablet,chewable 25 mcg PO DAILY vitamins A,C,W-golf-bvngzu [PreserVision AREDS] 1 tab PO BID Rx Instructions: 1 tablet twice daily chlorhexidine gluconate 0.12 % mouthwash 15 ml PO Q3D gabapentin 600 mg tablet 600 mg PO BID Qty: 180 2RF epinephrine [EpiPen 2-Yuri] 0.3 mg/0.3 mL auto-injector 0.3 mg IM ONCE Qty: 1 2RF rosuvastatin 20 mg tablet 20 mg PO DAILY Qty: 90 3RF spironolactone 25 mg tablet 25 mg PO DAILY Qty: 90 3RF aspirin [Aspir-81] 81 MG tablet,delayed release (DR/EC) 1 tab PO DAILY fenofibric acid (choline) [Trilipix] 135 mg capsule,delayed release(DR/EC) 135 mg PO HS Qty: 90 3RF albuterol sulfate 90 mcg/actuation HFA aerosol inhaler 2 puff inhalation Q4H PRN (Reason: shortness of breath or wheezing) Qty: 8.5 1RF clopidogrel 75 mg tablet 75 mg PO DAILY Qty: 90 3RF potassium chloride 20 mEq tablet extended release 40 meq PO DAILY Qty: 180 3RF acetaminophen [Mapap Extra Strength] 500 MG tablet 1,000 mg PO Q6H PRN PRN Discharge Instructions Instructions: Minor Contusion ED, Leg Pain (ED) Additional Instructions: You were seen in the emergency department for your right posterior hip pain, there is no fracture seen on x-rays or CT today. You do have a hematoma in your right buttock, please ice the area, take adequate dosing of Tylenol about 650 mg every 6 hours. Please return to the emergency department for any signs of neurovascular compromise like inability to range your hip, complete numbness distal, increasing unilateral leg swelling. Please follow-up with your Ortho practice at [facility] for persistent pain lasting longer than 2 weeks for specialty evaluation. Referrals: [facility] [Outside] (Ortho, R hip pain s/p R ROBERT (remote history) and new fall) Doug Valderrama MD [Primary Care Provider] - HPI General Date/Time Provider Initiated Documentation: 03/10/24 12:39. HPI Narrative: 78 year-old male presents to ED today by POV/ambulating with a chief complaint of R hip pain with onset on Sunday- he jumped over a Roomba vaccuum at his home, and landed on his R side. Quality described as R sided hip pain, mostly in the posterior area of the R hip, shoots down his leg, has history of R ROBERT. R-foot dominant. No radiation to numbness/tingling, gross swelling, inability to ambulate, endorses certain ROMs causing significant pain- he could not get off his tractor on Sunday. Severity is described as moderate to severe. Palliating factors include nothing specific attempted. Provoking factors include nothing specific. Events leading up to the incident/Associated Symptoms: [place] [facility] [place] Patient not anticoagulated- is on DAPT. Related Data Home Medications Medication Instructions Recorded Confirmed aspirin 81 mg tablet,delayed 1 tab PO DAILY 02/04/13 03/10/24 release (Aspir-) acetaminophen 500 mg tablet (Mapap 1,000 mg PO Q6H PRN PRN 09/08/13 03/10/24 Extra Strength) escitalopram oxalate 20 mg tablet 20 mg PO DAILY #90 tab-caps 09/02/19 03/10/24 (Lexapro) cholecalciferol (vitamin D3) 25 25 mcg PO DAILY 03/01/23 03/10/24 mcg (1,000 unit) chewable tablet tiotropium bromide 2.5 2 inh inhalation DAILY 03/01/23 03/10/24 mcg/actuation mist for inhalation (Spiriva Respimat) triamcinolone acetonide 0.1 % 1 applic topical BID eczema #80 04/04/23 03/10/24 topical cream grams chlorhexidine gluconate 0.12 % 15 ml PO Q3D 04/25/23 03/10/24 mouthwash vitamins A,C,K-hqcq-djiptx 1 tab PO BID 04/25/23 03/10/24 fenofibric acid (choline) 135 mg 135 mg PO HS #90 tab-caps 06/14/23 03/10/24 capsule,delayed release (Trilipix) gabapentin 600 mg tablet 600 mg PO BID #180 tabs 08/23/23 03/10/24 nystatin 100,000 unit/gram topical 1 applic topical DAILY PRN groin 08/29/23 03/10/24 powder rash #60 grams dupilumab 300 mg/2 mL subcutaneous 300 mg (2 mL) subcut Q2W #4 mL 12/25/23 03/10/24 pen injector (Dupixent) epinephrine 0.3 mg/0.3 mL 0.3 mg (0.3 mL) IM ONCE ##1 01/01/24 03/10/24 injection, auto-injector (EpiPen 2-Yuri) rosuvastatin 20 mg tablet 20 mg PO DAILY #90 tabs 01/01/24 03/10/24 spironolactone 25 mg tablet 25 mg PO DAILY #90 tab-caps 01/01/24 03/10/24 albuterol sulfate 90 mcg/actuation 2 puff inhalation Q4H PRN 01/26/24 03/10/24 aerosol inhaler shortness of breath or wheezing #8.5 grams clopidogrel 75 mg tablet 75 mg PO DAILY #90 tabs 01/29/24 03/10/24 potassium chloride 20 mEq 40 meq (2 x 20 mEq) PO DAILY #180 01/29/24 03/10/24 tablet,extended release tabs carvedilol 3.125 mg tablet 12.5 mg PO ONCE 02/19/24 03/10/24 diclofenac sodium 3 % topical gel 100 g topical QID PRN 02/19/24 03/10/24 torsemide 20 mg tablet 40 mg PO QAM 02/19/24 03/10/24 trazodone 100 mg tablet 50 mg PO QHS PRN 02/19/24 03/10/24 Previous Rx's Medication Instructions Recorded escitalopram oxalate 20 mg tablet 20 mg PO DAILY #90 tab-caps 09/02/19 (Lexapro) triamcinolone acetonide 0.1 % 1 applic topical BID eczema #80 04/04/23 topical cream grams fenofibric acid (choline) 135 mg 135 mg PO HS #90 tab-caps 06/14/23 capsule,delayed release (Trilipix) gabapentin 600 mg tablet 600 mg PO BID #180 tabs 08/23/23 nystatin 100,000 unit/gram topical 1 applic topical DAILY PRN groin 08/29/23 powder rash #60 grams dupilumab 300 mg/2 mL subcutaneous 300 mg (2 mL) subcut Q2W #4 mL 12/25/23 pen injector ([employer]) epinephrine 0.3 mg/0.3 mL 0.3 mg (0.3 mL) IM ONCE ##1 01/01/24 injection, auto-injector (EpiPen 2-Yuri) rosuvastatin 20 mg tablet 20 mg PO DAILY #90 tabs 01/01/24 spironolactone 25 mg tablet 25 mg PO DAILY #90 tab-caps 01/01/24 albuterol sulfate 90 mcg/actuation 2 puff inhalation Q4H PRN 01/26/24 aerosol inhaler shortness of breath or wheezing #8.5 grams clopidogrel 75 mg tablet 75 mg PO DAILY #90 tabs 01/29/24 potassium chloride 20 mEq 40 meq (2 x 20 mEq) PO DAILY #180 01/29/24 tablet,extended release tabs Allergies Allergy/AdvReac Type Severity Reaction Status Date / Time bee pollen Allergy Severe SOB Verified 03/10/24 14:11 hydrocodone Allergy Severe ANAPHYLAXSI Verified 03/10/24 14:11 S Tetracyclines Allergy Intermediate TONGUE Verified 03/10/24 14:11 SWELLING pravastatin Allergy Mild SKIN RASH Verified 03/10/24 14:11 amoxicillin AdvReac Intermediate DIARRHEA Verified 03/10/24 14:11 atorvastatin AdvReac Intermediate JOINT PAIN Verified 03/10/24 14:11 enalapril AdvReac Intermediate COUGH Verified 03/10/24 14:11 morphine AdvReac Intermediate Nausea Verified 03/10/24 14:11 prednisone AdvReac Intermediate LEG CRAMPS Verified 03/10/24 12:36 zolpidem AdvReac Intermediate MUSCLE Verified 03/10/24 14:11 SPASM ibuprofen AdvReac Heart Verified 03/10/24 14:11 Repatha Allergy Rash Uncoded 03/10/24 14:11 POTASSIUM CLAVULA AdvReac Intermediate DIARRHEA Uncoded 03/10/24 14:11 iv dyes AdvReac unknown Uncoded 03/10/24 14:11 General Stated Complaint: Orthopedic DARION: 3 Review of Systems All systems reviewed & are unremarkable except as noted in HPI and below Exam Narrative Exam Narrative: GENERAL APPEARANCE: Well-nourished, non-toxic, awake and alert, atraumatic, no acute distress. SKIN: Warm, pink, dry, intact, without rashes/lesions/ulcerations. HEAD: Normocephalic, atraumatic, normal hair distribution for gender/age. EYES: Normal conjunctiva, no exudates on lids/lashes. ENT: Nares patent, no circumoral cyanosis, no facial swelling NECK: Supple, trachea midline, painless cervical ROM. LUNGS/CHEST: Non-labored respirations, normal A/P diameter, symmetrical expansion, no chest wall deformity HEART (CV/PV): No peripheral edema, no JVD. ABDOMEN: Soft, non-distended, no guarding. MSK: Normal ROM, no swelling/deformity to bilateral UEs or LEs, moving all extremities without weakness, no cyanosis, spine midline without tenderness, normal curvature. R HIP: Tenderness to palpation of the posterior right hip without crepitus, able to flex and extend at the hip with strength 4+/5, sensation intact, no long unilateral calf swelling, no ecchymosis at the hip joint, no midline lumbar vertebral tenderness/crepitus/step-offs, sensation intact in the right lower extremity. NEURO: Mental Status AAOx4 - alert to person, place, time, events No facial droop, no forehead involvement. Motor: No focal weakness - strength 5/5 in bilateral UEs and LEs, proximal and distal, symmetric. Sensory: sensation intact to light touch globally. Gait normal: patient ambulated without ataxia into ED room. PSYCH: euthymic, cooperative, pleasant, appropriate speech Course Vital Signs Vital signs: Vital Signs Temperature 36.6 C 03/10/24 12:34 Pulse 69 03/10/24 12:34 Respiratory Rate 20 03/10/24 12:34 Blood Pressure 107/92 H 03/10/24 12:34 Pulse Oximetry 98 03/10/24 12:34 Temperature 36.6 C 03/10/24 12:34 Temperature Source Temporal Artery Scan 03/10/24 12:34 Pulse 69 03/10/24 12:34 Respiratory Rate 20 03/10/24 12:34 Respiratory Effort Normal, Non-Labored 03/10/24 12:37 Blood Pressure 107/92 H 03/10/24 12:34 Blood Pressure Position Sitting 03/10/24 12:34 Pulse Oximetry 98 03/10/24 12:34 Oxygen Delivery Method Room Air 03/10/24 12:34 Oxygen Flow Rate 0 03/10/24 12:34 Medical Decision Making This dictation utilizes [id number] dictation software and may contain unedited grammatical errors. 78 year-old male presents to ED today by POV/ambulating with a chief complaint of R hip pain with onset on Sunday- he jumped over a Roomba vaccuum at his home, and landed on his R side. Quality described as R sided hip pain, mostly in the posterior area of the R hip, shoots down his leg, has history of R ROBERT. R-foot dominant. No radiation to numbness/tingling, gross swelling, inability to ambulate, endorses certain ROMs causing significant pain- he could not get off his tractor on Sunday. Severity is described as moderate to severe. Palliating factors include nothing specific attempted. Provoking factors include nothing specific. Events leading up to the incident/Associated Symptoms: Patients [place] [facility] [place] Patients' medical history: Right ROBERT, history of CVA, T2DM, psoriatic arthritis, osteoarthritis, hypertension, coronary artery disease, COPD, morbid obesity. Family and social history: noncontributory. Pertinent exam findings / vital signs include R HIP: Tenderness to palpation of the posterior right hip without crepitus, able to flex and extend at the hip with strength 4+/5, sensation intact, no long unilateral calf swelling, no ecchymosis at the hip joint, no midline lumbar vertebral tenderness/crepitus/step-offs, sensation intact in the right lower extremity. Differential / pathologies of concern include darby-prosthetic fracture, hip fracture, pelvic fracture, sacral/lumbar fracture, contusion, sciatica. Diagnostic studies of: -XR R Hip, XR Lumbar Spine - no acute fractures seen- but XR was overrexposed and not definitive > will perform CT after discussing with Radiologist Dr. De León. Interventions of: -none. ED Course/Assessment/Plan: 78-year-old male presents to the ER for right hip pain, he has a remote history of a right ROBERT, he was jumping over his room but in his living room when he fell injuring his right side mostly posterior hip area/lower lumbar paraspinal and buttock, he has significant soft tissue swelling to this area and I did perform x-rays which were somewhat overexposed a CT was performed which shows no acute fracture, shows a right buttock hematoma, I did pet adoption counselor the patient to ice the area and take adequate dosing of Tylenol, recommend he follow-up with his hip surgeon at [facility] for any persistent pain past 2 weeks and strict return to the ED criteria for any signs of neurovascular compromise like complete numbness, inability to ambulate, worsening pain despite treatment, inability to range his hip on the right side. Findings not consistent with neurovascular compromise. Disposition of Right Hip Pain, Contusion of Right Buttock. Patient verbalized understanding of the plan and return to ED criteria and engaged in shared decision making. Medical Records Medical records reviewed: Yes I reviewed the patient's medical records. Imaging Data Radiologic Study: Attestation: I personally reviewed and interpreted this imaging study as follows: Imaging: X-Ray Radiologist's impression: EXAM: XR HIP RT COMPLETE AP PELVIS INDICATION: fall, prior ROBERT R side, R hip pain. COMPARISON: CR RT HIP COMPLETE AP PELVIS from 05/11/2014 TECHNIQUE: 2D digital imaging was performed. AP and lateral views. FINDINGS: Exam is limited by patient positioning and patient body habitus.. The patient was unable to lie flat. There are bilateral total hip prostheses. No evidence of hip dislocation. No visible fracture. IMPRESSION: Limited exam. No acute abnormality. Radiologic Study #2: Attestation: I personally reviewed and interpreted this imaging study as follows: Imaging: X-Ray and CT Scan Radiologist's impression: EXAM: XR LUMBAR SPINE AP, LAT CLINICAL HISTORY: fall, R lumbo-sacral pain. TECHNIQUE: 2D digital imaging was performed. Five views. COMPARISON: CR LUMBAR SPINE COMPLETE from 05/11/2014 CT,PT NM PET SCAN:EYES TO THIGHS-INI from 03/07/2024 FINDINGS: BONES: No fracture or destructive lesion. Vertebral body heights are maintained. facet hypertrophy identified. Bilateral hip prostheses. DISKS: Intervertebral disc spaces are maintained. ALIGNMENT: Lumbar spinal alignment is within normal limits. SOFT TISSUE: Aorta heavily calcified. Surgical clips upper abdomen. Calcified gallstones. IMPRESSION: No acute abnormality. Radiologic Study #3: Attestation: I personally reviewed and interpreted this imaging study as follows: Imaging: CT Scan Radiologist's impression: EXAM: CT PELVIC WO CLINICAL HISTORY: R hip pain. TECHNIQUE: Imaging Protocol: Axial computed tomography images with coronal and sagittal reformatted images were created and reviewed. CONTRAST MATERIAL: Oral: yes / no COMPARISON: CR XR HIP RT COMPLETE AP PELVIS from 03/10/2024 FINDINGS: Bladder: Obscured by artifact from bilateral hip prostheses. Unremarkable were visualized. Bowel: No obstruction or bowel wall thickening. Diverticulosis. Appendix normal. Peritoneal cavity: No ascites, collection or mesenteric inflammatory response. Vasculature: Aorta and iliac arteries calcified. Reproductive: Obscured by artifact from bilateral hip prostheses Bones: No fracture. Bilateral hip prostheses. Soft tissues: Right buttock soft tissue hematoma. Bilateral fatty containing inguinal hernias, left greater than right. IMPRESSION: Small right buttock hematoma. No evidence of fracture. Quality:SDOH Health Related Social Needs: No Data to Display PFSH All Active Problems (Updated 03/10/24 @ 14:49 by PATRICK Hickey) Right hip pain (Acute) Contusion of right buttock (Acute) COPD (chronic obstructive pulmonary disease) (Chronic) Lung mass (Acute) Cough (Acute) Dry mouth (Acute) Leg cramps (Acute) Senile purpura (Acute) Biventricular cardiac pacemaker in situ (Acute) Status post aortic valve replacement (Acute 09/02/13) Tissue valve replacement. 01/14: bovine valve redo Morbid obesity with BMI of 40.0-44.9, adult (Chronic) Sleep apnea (Chronic) using CPAP Diabetes (Chronic) Diverticulitis (Acute) Morbid obesity (Acute) Obstructive sleep apnea syndrome (Acute) C-PAP Subarachnoid hemorrhage (Acute 08/23/06) PTSD (post-traumatic stress disorder) (Acute) Mitral valve disease (Acute) Coronary artery disease (Chronic) s/p CABG X 2 Pneumonia (Acute) 01/2022-treated at [facility], associated with strep bacteremia Non-ST elevation IL (NSTEMI) (Acute) 01/2022-associated with pneumonia, inpatient at [facility] Leukopenia (Acute) 2021, mild Thrombocytopenia (Chronic) 01/2022, resolved as of 03/13/22 Essential hypertension (Acute) Hyperlipidemia (Acute) Chronic kidney disease, stage 3 (Acute) 02/2022- Cr-1.4 Diarrhea (Acute) Pacemaker (Acute) Low blood pressure (Acute) Status post transcatheter aortic valve replacement (TAVR) using bioprosthesis (Acute) Biventricular ICD (implantable cardioverter-defibrillator) in place (Acute) BIOTRONIC [place] 8 HF-T QP Serial # [id number] implanted 01/12/23 for GRAIN OILSEED OR PASTURE [employer]ARM [employer] RH Heart failure with reduced ejection fraction (Acute) Eczema (Acute) Medical History (Updated 03/10/24 @ 14:49 by PATRICK Hickey) Lung infiltrate Lung nodule COVID-19 11/09/21 History of CVA (cerebrovascular accident) 2010 sub acute left cerebral stroke Type 2 diabetes mellitus without complication, with skilled nursing current use of insulin pump (06/22/17) Psoriatic arthritis (04/25/17) Psoriasis Osteoarthritis History of tobacco use Gastroesophageal reflux disease Essential hypertension (07/31/13) Arthritis Insomnia Depression Diverticulitis Cholelithiasis pt. denies this Pancreatitis Fatty liver Hyperlipidemia Hypertension CAD (coronary artery disease) Pneumonia (09/08/13) Surgical History Status post aorto-coronary artery bypass graft F/U with [facility] cardiology last seen 04/2021 History of colostomy History of surgical procedure Status post hip replacement Status post panniculectomy Total replacement of hip 2002 RIGHT 2008 LEFT PAMICULECTOMY (02/23/09) Endoscopic Ethmoid (A&P) (~1997) Colostomy 06/30/05 10/24/05 REVERSE COLOSTOMY Colonoscopy - MAC (~06/30/19) 04/28-Diverticulosis 07/31-neg 2019 - negative 2021 - negative Family History Mother Essential hypertension Personal history of malignant neoplasm Father Essential hypertension Sister No problems noted. Sister No problems noted. Brother No problems noted. Brother No problems noted. Brother No problems noted. Social History Smoking/Tobacco Use Status: Former Tobacco Use Quit Date: 09/24/99 Tobacco: How many years used: 25 Smoking risk assessment performed?: Yes Alcohol Intake: current Alcohol Intake frequency: holidays/special occasions only Alcohol type: beer and hard liquor Drug use: Never Substance use type: does not use Caregiver/Support person: Yes Household members: spouse Housing: house Communication Needs: Hard of Hearing Do you need help understanding health information?: Often Pets and animals: No Do you think of yourself as: decline to answer What is your relationship status?: How often do you talk on the phone with friends or family?: decline to answer How often do you get together with friends or relatives?: decline to answer How often do you attend rastafari or rastafari services?: decline to answer Do you belong to any clubs or organized social groups?: decline to answer Panel score (0-1 are the most socially isolated patients): 1 What type of physical activity do you participate in: other Details: Cardiac Rehab Duration: 60-90 minutes/day Frequency: 3-4 times per week Rachana/Orthodox: Hoahaoism Seatbelt use: always Drive intox or ride w/intox 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
--- NOTE | 2024-03-10 12:45 | DI.RAD_ITS ---
Exam(s) XR HIP RT COMPLETE AP PELVIS EXAM: XR HIP RT COMPLETE AP PELVIS INDICATION: fall, prior ROBERT R side, R hip pain. COMPARISON: CR RT HIP COMPLETE AP PELVIS from 05/11/2014 TECHNIQUE: 2D digital imaging was performed. AP and lateral views. FINDINGS: Exam is limited by patient positioning and patient body habitus.. The patient was unable to lie flat . There are bilateral total hip prostheses. No evidence of hip dislocation. No visible fracture. IMPRESSION: Limited exam. No acute abnormality. DATA REPOSITORY: RADIATION DOSE DELIVERED:
--- NOTE | 2024-03-10 12:46 | DI.RAD_ITS ---
Exam(s) XR LUMBAR SPINE AP, LAT EXAM: XR LUMBAR SPINE AP, LAT CLINICAL HISTORY: fall, R lumbo-sacral pain. TECHNIQUE: 2D digital imaging was performed. Five views. COMPARISON: CR LUMBAR SPINE COMPLETE from 05/11/2014 CT,PT NM PET SCAN:EYES TO THIGHS-INI from 03/07/2024 FINDINGS: BONES: No fracture or destructive lesion. Vertebral body heights are maintained. facet hypertrophy i dentified. Bilateral hip prostheses. DISKS: Intervertebral disc spaces are maintained. ALIGNMENT: Lumbar spinal alignment is within normal limits. SOFT TISSUE: Aorta heavily calcified. Surgical clips upper abdomen. Calcified gallstones. IMPRESSION: No acute abnormality. DATA REPOSITORY: RADIATION DOSE DELIVERED:
--- NOTE | 2024-03-10 14:00 | DI.CT_ITS ---
Exam(s) CT PELVIC WO EXAM: CT PELVIC WO CLINICAL HISTORY: R hip pain. TECHNIQUE: Imaging Protocol: Axial computed tomography images with coronal and sagittal reformatted images were created and reviewed. CONTRAST MATERIAL: Oral: yes / no COMPARISON: CR XR HIP RT COMPLETE AP PELVIS from 03/10/2024 FINDINGS: Bladder: Obscured by artifact from bilateral hip prostheses. Unremarkable were visualized. Bowel: No obstruction or bowel wall thickening. Diverticulosis. Appendix normal. Peritoneal cavity: No ascites, collection or mesenteric inflammatory response. Vasculature: Aorta and iliac arteries calcified. Reproductive: Obscured by artifact from bilateral hip prostheses Bones: No fracture. Bilateral hip prostheses. Soft tissues: Right buttock soft tissue hematoma. Bilateral fatty containing inguinal hernias, lef t greater than right. IMPRESSION: Small right buttock hematoma. No evidence of fracture. RADIATION DOSE DELIVERED: Total DLP DATA REPOSITORY: All CT scans at this facility are submitted to the National Radiology Data Registry (NRDR) Dose Index Registry (DIR) with the [employer] (A[employer]). RADIATION OPTIMIZATION: All CT scans at this facility use at least one of these dose optimization te chniques: automated exposure control; mA and/or kV adjustment per patient size (includes targeted exa ms where dose is matched to clinical indication); or iterative reconstruction.
--- OUTSIDE RECORDS SUMMARY | 2024-03-10 14:04 | XMS_ITS | Continuity of Care Document ---
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 Role Phone INCLUSIVE, INCLUSIVE Primary Care Physician Unav ailable Chief Complaint and Reason for Visit Chief Complaint TIA Reason for Visit TIA (transient ische ladan attack) Hypertension Coronary artery disease H/O aortic valve replacement with porcine valve Depression Sleep initiation dysfunction Allergies, Adverse Reactions, Alerts Allergen Type Severity Reaction Last Updated Verified Status hydrocodone ([id number]) Allergy Mild Other - describe in comments December 06, 2022 Yes Active tetracycline ([id number]) Allergy Mild Other - describe in comments December 06, 2022 Yes Active clavulanic acid ([id number]) Allergy Mild Diarrhea December 06, 2022 Yes Active amoxicillin ([id number]) Allergy Mild Diarrhea December 06, 2022 Yes Active atorvastatin ([id number]) Allergy Mild Other - describe in comments December 06, 2022 Yes Active provachol Allergy Mild Rash December 06, 2022 No Active Social History Smoking Status Unknown if ever smoked Observation Status Observation Response Date of Response Tobacco Status Never smoker December 07, 2022 4:27pm Additional Data Assigned Sex Male Problems Active Problems Medical Problem Onset Date Status Coronary artery disease Active Depression Active Hypertension Active Sleep initiation dysfunction Act kayli TIA (transient ischemic attack) Active H/O aortic valve replacement with porcine valve Active Medications Medication Status Dose Units Route Directions Qty Days St art Date End Date Instructions Amlodipine Besylate Active 10 MG PO Once Per Day 60 30 December 07, 2022 5:10pm Aspirin (Ecotrin*) 81 Mg TABLET. Active 81 MG PO Once Per Day 30 December 07, 2022 5:10pm Choline Fenofibrate* (Trilipix*) 135 Mg CAPSULE. Active 135 MG PO Once Per Day 30 December 07, 2022 5:10pm Escitalopram Oxalate (Lexapro*) 20 Mg TABLET Active 20 MG PO Once Per Day 30 December 07, 2022 5:10pm Hydrochlorothiazi de (Hctz Tab*) 25 Mg TAB Active 25 MG PO Once Per Day 30 December 07, 2022 5:10pm Lactobacillus Acidophilus (Acidophilus Probiotic*) 1 Each CAPSULE Active 1 EA PO Every Morning 30 December 07, 2022 5:10pm Losartan Potassium (Cozaar*) 25 Mg TABLET Active 100 MG PO Once Per Day 120 30 December 07, 2022 5:10pm Rosuvastatin Calcium (Crestor*) 20 Mg TABLET Active 20 MG PO Once Per Day 30 December 07, 2022 5:10pm Procedures Procedure Date Performed Status CT, head, without contrast December 06, 2022 5:19 pm completed Portable x-ray of chest December 06, 2022 5:19pm completed MRI brain wo contrast December 07, 2022 6:00am co mpleted Relevant Diagnostic Tests and/or Laboratory Data Laboratory Results Test Date/Time Result Interpretation Reference Range Result Comment Performing Site White Blood Count December 06, 2022 6:18pm 4.7 3.6-11.1 [facility] [address] [place], [place] [id number] Red Blood Count December 06, 2022 6:18pm 3.59 4.27-5.49 [facility] [address] [place] [address] 84353 Hemoglobin December 07, 2022 9:39am 11.5 12.9-16.1 [facility] [address] [place] [address] 06120 Hematocrit December 07, 2022 9:39am 35.6 37.7-46.5 [facility] [address] [place] [address] 93675 Mean Corpuscular Volume December 06, 2022 6:18pm 95.8 79.3-94.8 [facility] [address] [place] [address] 72781 Mean Corpuscular Hemoglobin December 06, 2022 6:18pm 31.2 26.8-33.2 [facility] [address] [place] [address] 27902 Mean Corpuscular Hemoglobin Concent December 06, 2022 6:18pm 32.6 33.5-35.5 [facility] [address] [place] [address] 67024 Red Cell Distribution Width December 06, 2022 6:18pm 14.9 12.0-15.1 [facility] [address] [place] [address] 57505 Platelet Count December 06, 2022 6:18pm 91 165-353 [facility] [address] [place] [address] 78296 Mean Platelet Volume December 06, 2022 6:18pm 10.5 7.5-10.6 [facility] [address] [place] [address] 90830 Neutrophils (%) (Auto) December 06, 2022 6:18pm 56.8 43.2-71.5 [facility] [address] [place] [address] 64432 Immature Granulocytes % December 06, 2022 6:18pm 0.2 0.0-0.5 [facility] [address] [place] [address] 39256 Lymphocytes (%) (Auto) December 06, 2022 6:18pm 20.9 16.8-43.4 [facility] [address] [place] [address] 64831 Monocytes (%) (Auto) December 06, 2022 6:18pm 8.6 4.6-12.4 [facility] [address] [place] [address] 47602 Eosinophils (%) (Auto) December 06, 2022 6:18pm 12.9 0.7-7.8 [facility] [address] [place] [address] 57993 Basophils (%) (Auto) December 06, 2022 6:18pm 0.6 0.2-1.2 [facility] [address] [place] [address] 68105 Nucleated Red Blood Cells % (auto) December 06, 2022 6:18pm 0.0 0-0 [facility] [address] [place] [address] 21290 Neutrophils # (Auto) December 06, 2022 6:18pm 2.6 1.9-7.2 [facility] [address] [place] [address] 82535 Immature Granulocytes # December 06, 2022 6:18pm 0.0 0.0-0.1 [facility] [address] [place] [address] 07147 Lymphocytes # (Auto) December 06, 2022 6:18pm 1.0 1.1-2.7 [facility] [address] [place] [address] 73924 Monocytes # (Auto) December 06, 2022 6:18pm 0.4 0.3-0.8 [facility] [address] [place] [address] 37432 Eosinophils # (Auto) December 06, 2022 6:18pm 0.6 0.0-0.5 [facility] [address] [place] [address] 71038 Basophils # (Auto) December 06, 2022 6:18pm 0.0 0.0-0.1 [facility] [address] [place] [address] 44604 Nucleated Red Blood Cells # December 06, 2022 6:18pm 0.0 0-0 [facility] [address] [place] [address] 72660 Urine Color December 06, 2022 8:29pm Leigha [facility] [address] [place] [address] 72475 Urine Appearance December 06, 2022 8:29pm Hazy [facility] [address] [place] [address] 74095 Urine Specific [place] December 06, 2022 8:29pm 1.023 1.005-1.030 [facility] [address] [place] [address] 00775 Urine pH December 06, 2022 8:29pm 5.0 5.0-8.0 [facility] [address] [place] [address] 17329 Urine Leukocyte Esterase December 06, 2022 8:29pm NEGATIVE NEGATIVE [facility] [address] [place] [address] 72286 Urine Nitrite December 06, 2022 8:29pm NEGATIVE NEGATIVE [facility] [address] [place] [address] 39249 Urine Protein December 06, 2022 8:29pm NEGATIVE NEGATIVE [facility] [address] [place] [address] 17106 Urine Glucose (UA) December 06, 2022 8:29pm NEGATIVE NEGATIVE [facility] [address] [place] [address] 10729 Urine Ketones December 06, 2022 8:29pm TRACE NEGATIVE [facility] [address] [place] [address] 22132 Urine Urobilinogen December 06, 2022 8:29pm NEGATIVE NEGATIVE [facility] [address] [place] [address] 74089 Urine Bilirubin December 06, 2022 8:29pm NEGATIVE NEGATIVE [facility] [address] [place] [address] 33854 Urine Blood December 06, 2022 8:29pm NEGATIVE NEGATIVE [facility] [address] [place] [address] 71236 Urine Ascorbic Acid Level December 06, 2022 8:29pm NEGATIVE [facility] [address] [place] [address] 96521 Sodium Level December 07, 2022 9:39am 138 137-144 [facility] [address] [place] [address] 74719 Potassium Level December 07, 2022 9:39am 4.5 3.1-5.1 [facility] [address] [place] [address] 54623 Chloride Level December 07, 2022 9:39am 110 101-110 [facility] [address] [place] [address] 27794 Carbon Dioxide Level December 07, 2022 9:39am 18 23-31 [facility] [address] [place] [address] 87270 Glucose Level December 07, 2022 9:39am 86 70-105 [facility] [address] [place] [address] 73193 Blood Urea Nitrogen December 07, 2022 9:39am 41.0 8.4-25.7 [facility] [address] [place] [address] 73195 Creatinine December 07, 2022 9:39am 1.52 0.72-1.25 [facility] [address] [place] [address] 88255 Estimated Creatinine Clearance Calc December 07, 2022 9:39am 51.72 PT Ht: 172.72cm, PT Wt: 118.5KG [facility] [address] [place] [address] 01166 Anion Gap December 07, 2022 9:39am 15 7-16 [facility] [address] [place] [address] 85515 Calcium Level December 07, 2022 9:39am 9.4 8.4-10.2 [facility] [address] [place] [address] 40274 Phosphorus Level December 07, 2022 9:39am 3.1 2.3-4.7 [facility] [address] [place] [address] 13188 Magnesium Level December 07, 2022 9:39am 1.7 1.6-2.6 [facility] [address] [place] [address] 00923 Troponin December 06, 2022 7:10pm 0.071 0.030-0.118 [facility] [address] [place] [address] 23226 Vitamin B12 Level December 07, 2022 9:39am 396 213-816 [facility] [address] [place] [address] 14075 Thyroid Stimulating Hormone (TSH) December 07, 2022 9:39am 2.2743 0.3500-4.940 0 [facility] [address] [place] [address] 28843 POC Glucose December 06, 2022 7:18pm 89 74-106 POC INTERFACE [address] [place] [address] 75196 Diagnostic Imaging Reports Report Dictated Date/Time Dictated By Status December 06, 2022 5:47pm LATESHA Monterroso MD completed [address] [id number] --------- Patient: IRVING ACOSTA : 1945 Sex: M Address: Phone: Unit #: [id number] REQ SEQ #: [id number] Location: ED Room #: Ordering: JOSE COHEN PA-C Diagnosis: CONFUSED CT HEAD WO CONTRAST History: CONFUSED CONFUSED Findings: Axial non-contrast images of the head show no focal mass effect or intracranial hemorrhage. Encephalomalacia from a prior infarct in the right posterior watershed zone. Vascular calcifications cavernous carotid arteries and intrathecal vertebral arteries. Old ischemic changes in the brainstem. Visualized portions of the orbits and paranasal sinuses are normal. There are ischemic white matter changes but no focal infa rcts. Impression: No acute intracranial pathology. Final report electronically signed by: Latesha Antoine MD on 12/06/2022 5:47 PM Signed by: LATESHA ANTOINE II, MD 12/06/22 [id number] cc: JOSE COHEN PA-C, II,LATESHA Davis MD ~ Report Dictated Date/Time Dictated By Status December 06, 2022 5:48pm LATESHA Monterroso MD completed [address] [id number] --------- Patient: IRVING ACOSTA : 1945 Sex: M Address: Phone: Unit #: [id number] REQ SEQ #: [id number] Location: ED Room #: Ordering: JOSE COHEN PA-C Diagnosis: CONFUSED CHEST PORTABLE - 1 VIEW History: CONFUSED CONFUSED Single view chest. Cardiomegaly. Vascular prominence. Status post median sternotomy. Negative for pneumothorax. IMPRESSION: Cardiomegaly and suggestion of vascular congestion. Final report electronically signed by: Latesha Antoine MD on 12/06/2022 5:48 PM Signed by: LATESHA ANTOINE II, MD 12/06/22 [id number] cc: JOSE COHEN PA-C, II, TOBIN A MD ~ Report Dictated Date/Time Dictated By Status December 07, 2022 9:47am JAEL Cece CEDENOY DO [address] [address] --------- Patient: IRVING ACOSTA : 1945 Sex: M Address: [address] [place] [address] [place] [address] Unit #: [id number] REQ SEQ #: [id number] Location: [facility] Room #: [id number] Ordering: SOLITARIO GALINDO MD Diagnosis: TIA -------- US CAROTID DOPPLER BILATERAL Clinical Information: TIA/CVA Technique: Real time imaging, color flow Doppler with spectral analysis was performed of bilateral cervical carotid arteries and vertebral arteries. FINDINGS: RIGHT CAROTID: ICA Velocities Peak systolic 95 cm/s End diastolic 13 cm/s ICA/CCA peak systolic ratio 1.2 Predominately calcified plaque right common carotid artery, carotid bifurcation and ICA. LEFT CAROTID: ICA Velocities Peak systolic 118 cm/s End diastolic 17 cm/s ICA/CCA peak systolic ratio 1.6 Predominately calcified plaque left common carotid artery, carotid bifurcation and ICA. Mildly elevated peak systolic velocity in the left external carotid artery at 226 cm/s (compared to 95 cm/s right external carotid artery) suggestive of mild stenosis left external carotid artery. External carotid artery stenosis is generally of no clinical significance. VERTEBRAL ARTERIES: Both vertebral arteries are patent with antegrade flow. IMPRESSION: Moderate amount of predominantly calcified atherosclerotic plaque with less than 50% ICA stenosis bilaterally. COMMENT: Velocity criteria are extrapolated from the diameter data as defined by the Society of Radiologists in Ultrasound Consensus Conference. Radiology 2003: 229; 340-346. Final report electronically signed by: Sudhakar Hyde DO on 12/07/2022 9:47 AM Signed by: JAEL HYDE DO 12/07/22 0970 cc: JAEL HYDE MARK N MD ~ Report Dictated Date/Time Dictated By Status December 07, 2022 8:22am LALY WHEELER MD completed [address] [address] --------- Patient: IRVING ACOSTA : 1945 Sex: M Address: [address] [place] [address] Unit #: [id number] [facility] SEQ #: [id number] Location: [facility] Room #: [id number] Ordering: SOLITARIO GALINDO MD Diagnosis: TIA -------- [place] [address] Study Date: 12/07/2022 08:22 AM Name: IRVING ACOSTA Exam:Adult Echocardiogram : 1945 Age: 77 yrs Gender: Male Patient Location: [facility]^2-2869^P Referring Physician: JOSIE Ordering Physician: SOLITARIO GALINDO Performed By: Giselle Skaggs MBA,[facility] History: CABG,Hyperlipidemia,Hypertension,AVR Reason For Study: STROKE/ TIA Height: 68 in Weight: 261 lb BSA: 2.3 m2 HR: 52 BP: 146/64 mmHg Interpretation Summary The left ventricular ejection fraction is low normal. Ejection Fraction = 50-55%. There is moderate concentric left ventricular hypertrophy. The GEOVANNA is mildly abnormal (35-41). A bubble study was performed indicating an ASD/PFO 'is not' present There is a prosthetic aortic valve. The gradient is abnormal for this prosthetic aortic valve. Mild aortic regurgitation. There is mild mitral regurgitation. No prior echo to compare Procedure A two-dimensional transthoracic echocardiogram with color flow and Doppler was performed. The quality of the study is Adequate. A saline contrast injection was performed to assess for cardiac shunting. Left Ventricle The left ventricle is grossly normal size. The left ventricular mass index is severely abnormal. There is moderate concentric left ventricular hypertrophy. The left ventricular ejection fraction is low normal. Ejection Fraction = 50-55%. No diastolic dysfunction parameters to suggest elevated left atrial pressure or congestive heart failure. The left ventricular wall motion is normal. There is no thrombus. Left Atrium The GEOVANNA is mildly abnormal (35-41). There is no Doppler evidence for an atrial septal defect. A bubble study was performed indicating an ASD/PFO 'is not' present. Right Atrium Right atrial size is normal. Right Ventricle The right ventricle is normal in size and function. Aortic Valve Mild aortic regurgitation. There is a prosthetic aortic valve. The gradient is abnormal for this prosthetic aortic valve. Mitral Valve The mitral valve is grossly normal. There is no mitral valve stenosis. There is mild mitral regurgitation. Tricuspid Valve The tricuspid valve is not well visualized, but is grossly normal. There is no tricuspid stenosis. There is trace tricuspid regurgitation. Pulmonary hypertension is unlikely if PASP < or equal to 36 mmHg. Pulmonic Valve The pulmonic valve is not well visualized. There is no pulmonic valvular stenosis. Trace pulmonic valvular regurgitation. Great Vessels The aortic root is normal size. No obvious dissection could be visualized. The pulmonary is not well visualized. Venous Pulmonary veins were not well visualized during exam. The inferior vena cava is normal in size, with a normal collapsibility index. Pericardium There is no pericardial effusion. There is no pleural effusion. MMode/2D Measurements & Calculations RVDd: 3.2 cm LVIDd: 5.9 cm FS: 26.0 % IVSd: 1.5 cm LVIDs: 4.3 cm EDV(Teich): 169.9 ml LVPWd: 1.5 cm ESV(Teich): 84.4 ml EF(Teich): 50.3 % LV mass(C)d: 404.9 grams Ao root diam: 3.3 cm LVOT diam: 2.2 cm LV mass(C)dI: 176.8 grams/m2 Ao root area: 8.6 cm2 LVOT area: 3.8 cm2 LA dimension: 4.9 cm LVLd ap4: 9.9 cm LVLd ap2: 9.9 cm CO(MOD-sp4): 5.6 l/min EDV(MOD-sp4): 201.0 ml EDV(MOD-sp2): 168.0 ml SV(MOD-sp4): 104.2 ml LVLs ap4: 8.8 cm LVLs ap2: 8.9 cm ESV(MOD-sp4): 96.8 ml ESV(MOD-sp2): 82.0 ml EF(MOD-sp4): 51.8 % EF(MOD-sp2): 51.2 % IVC Diam_phl: 1.8 cm RA A4Cs_phl: 16.5 cm2 RV Base_phl: 3.5 cm RV Length_phl: 8.5 cm RVIDd/LVIDd_phl: 0.55 LA/Ao (2D): 1.5 GEOVANNA: 38.6 ml/m2 RA A4C Volume: 41.9 ml RWT: 0.51 JOSE: 18.3 ml/m2 Time Measurements MM R-R int: 1.1 sec MM HR: 54.0 BPM Doppler Measurements & Calculations MV E max enoch: 94.0 cm/sec MV dec slope: 332.0 cm/sec2 Lat Peak E' Enoch: 11.1 cm/sec MV A max enoch: 121.5 cm/sec MV dec time: 0.30 sec MV E/A: 0.77 Med Peak E' Enoch: 6.8 cm/sec Ao V2 max: 441.0 cm/sec AI max enoch: 268.0 cm/sec Ao max P.8 mmHg AI max P.7 mmHg Ao V2 mean: 316.0 cm/sec AI dec slope: 208.0 cm/sec2 Ao mean P.0 mmHg AI P1/2t: 377.4 msec Ao V2 VTI: 127.0 cm CHELITA(I,D): 0.73 cm2 CHELITA(V,D): 0.64 cm2 LV V1 max P.2 mmHg MR max enoch: 575.0 cm/sec SV(LVOT): 92.6 ml LV V1 mean P.0 mmHg MR max P.3 mmHg LV V1 max: 74.4 cm/sec MR mean enoch: 442.0 cm/sec LV V1 mean: 49.4 cm/sec MR mean P.0 mmHg LV V1 VTI: 24.4 cm MR VTI: 221.0 cm PV V2 max: 158.0 cm/sec TR max enoch: 221.0 cm/sec RAP systole: 5.0 mmHg PV max P.0 mmHg TR max P.5 mmHg RVSP(TR): 24.5 mmHg AV P1/2t-pr_phl: 378.0 msec MV P1/2t-pr_phl: 87.0 msec RV S Vel_phl: 10.9 cm/sec AV VR_phl: 0.17 CHELITA(VTI)/BSA_phl: 0.32 AVDI: 0.19 E/E' lat: 8.5 E/E' med: 13.8 Electronically signed by: Laly Wheeler MD 12/07/2022 11:44 AM Ordering Physician: SOLITARIO GALINDO Referring Physician: JOSIE Performed By: Giselle Skaggs MBA,RDCS Signed by: LALY WHEELER MD 12/07/22 1145 cc: SOLITARIO GALINDO MD,LALY Davis MD ~ Report Dictated Date/Time Dictated By Status December 07, 2022 4:13pm IRVING MARRERO MD [address] [address] --------- Patient: IRVING ACOSTA : 1945 Sex: M Address: [address] [place] [address] [place] [address] Unit #: [id number] SEQ #: [id number] Location: [facility] Room #: [id number] Ordering: SOLITARIO GALINDO MD Diagnosis: TIA -------- MR BRAIN, WITHOUT CONTRAST Indication: TIA/CVA. Acute confusion. Comparison: CT head, 12/06/2022. Technique: Multi-planar T1, T2, FLAIR, GRE, and diffusion weighted MR images of the brain were obtained without gadolinium. Findings: There is mild motion artifact. There are scattered small foci of restricted diffusion without hemorrhage at the left frontal and parietal white matter and at the left external capsule. There is encephalomalacia at the right parietal lobe. There are small foci of T2 hyperintensity without restricted diffusion at the bilateral cerebellum. There is mild T2 hyperintensity in the periventricular white matter. At the left occipital lobe there is a small focus of susceptibility artifact with no edema, likely representing chronic hemorrhage. There is no other evidence of infarct, hemorrhage, mass, extra-axial fluid collection, or hydrocephalus. There is mild bilateral paranasal sinus chronic mucoperiosteal thickening, otherwise the visualized portions of the paranasal sinuses and orbits are grossly normal. IMPRESSION: 1. Scattered tiny subacute infarcts at the left frontal and parietal white matter and left external capsule, suspicious for cardioembolic phenomenon. No hemorrhage. No midline shift. 2. Right parietal old cortical infarct. 3. Bilateral cerebellum old lacunar infarcts. 4. Minimal leukoaraiosis. Final report electronically signed by: Howie Marrero MD on 12/07/2022 4:13 PM Signed by: IRVING MARRERO MD 12/07/22 1613 cc: SOLITARIO GALINDO MD,IRVING FLEMNIG ~ Vital Signs Vital Reading Result Reference Range Collection Date/Time BMI (Body Mass Index) 39.0 kg/m2 December 07, 2022 4:40am Height 68 [in_i] December 06 3 10:25pm Height 172.466706 cm December 06 10:25pm Weight 261.25 [lb_av] December 06 023 10:25pm Weight 118.5000 kg December 06 3 10:25pm Advance Directives Advance Directive Response Recorded Date/ Time Does the Patient Have an Advance Directive? December 06, 2022 8:28pm Insurance Providers Guarantor Irving Acosta Address [address] [place] [address] Contact Info. Home Phone: Payer Policy Id Coverage Id Subscriber's Name Subscriber Id Effective Date Expiration Date Medicare A&B [id number] Irving Acosta [id number] Out Of State Ppo [id number] Irving Acosta [id number] Encounters Encounter Location(s) Arrival/Admit Date Discharge/Depart Date Provider(s) Discharged Inpatient (obs) Replaced By [facility] December 06, 2022 8:25pm December 07, 2022 5:45pm ADARSH COLON MD Recent Diagnosis Onset Date TIA (transient ischemic attack) Hypertension Coronary artery disease Depression Sleep initiation dysfunction Functional Status Observation Response Date Recorded Functional Status Ambulates Independently December 07, 2022 5:19pm Eats Independently December 07, 2 023 5:19pm Bathes Independently December 07, 2022 5:19pm Dresses Independently November 5:19pm Toilets Independently November 5:19pm Medicates Self Indepen. December 072022 5:19pm Appropriate for Age December 07, 2022 5:19pm Mental Status Observation Response Date Recorded Level of Consciousness Awake November 5:19pm Alert December 07, 2022 5:19pm Appropriate December 07, 2022 5:19pm Follows Commands December 07 5:19pm Assessments Diagnosis Onset Date Resolution Status TIA (transient ischemic attack) Active Hypertension Active Coronary artery disease Acti ve Depression Active Sleep initiation dysfunction Active Plan of Treatment Future Tests Future scheduled test information is unavailable Pending Tests Pending diagnostic test information is unavailable Future Visits Future appointment information is unavailable Referrals to Other Providers Referral information is unavailable Future Procedures Procedure Name Ordered Date Scheduled Date ED NPO TIL ASPIRATION SCREENED December 06, 2022 5:19pm December 06, 2022 5:19pm ED Aspiration Risk Screening December 06, 2022 5: 19pm December 06, 2022 5:19pm ED NEURO CHECKS Q 2 HR December 06, 2022 5:19pm M [facility] 2022 5:19pm ED NIHSS December 06, 2022 5:19pm December 062022 5:19pm ED O2 Oxygen Nasal Cannula December 06, 2022 5:19 pm December 06, 2022 5:19pm Blood Glucose (ED) FSBS December 06, 2022 5:19pm December 06, 2022 5:19pm EKG (Emergency Dept. ONLY) December 06, 2022 5:19 pm December 06, 2022 5:19pm ED Consult for Admit December 06, 2022 7:52pm [facility] 2022 7:52pm Admission Orders December 06, 2022 8:25pm November 222022 8:24pm Admission Certification December 07, 2022 12:59am December 07, 2022 12:55am Code Status December 07, 2022 12:59am November 222022 12:55am O2 Oxygen Titration Protocol December 07, 2022 12 :59am December 07, 2022 12:55am Pulse Oximetry December 07, 2022 12:59am November 222022 12:55am PT REQUEST FOR SERVICE December 07, 2022 12:59am December 07, 2022 12:55am OT Evaluation and Treatment December 07, 2022 12: 59am December 07, 2022 12:55am Initiate Skin Care Protocol December 07, 2022 12: 59am December 07, 2022 12:55am VTE Risk Assessment December 07, 2022 12:59am Mar 2022 12:55am Teletracking Tele Order December 07, 2022 12:59am December 07, 2022 12:55am Teletracking DCConfirmOrder December 07, 2022 5:0 6pm December 07, 2022 5:06pm Future Medications Future medication information is unavailable Patient Instructions Symptoms of Stroke Risk Factors for Stroke Stroke Self [facility] Discharge Instructions Additional Instructions Discharge Instructions Follow-up Appointment Needed Discharge Patient: Schedule Appointment With:: PCP IN [place] See MD Within:: UPON ARRIVAL HOME Physician Instructions Discharge Diagnoses: (1) TIA (transient ischemic attack) Plan: Symptoms of expressive aphasia resolved, no other lingering symptoms. With MRI findings of both subacute and chronic stroke in multiple vascular beds suspicious for cardioembolic source. 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 His carotid Dopplers show stenosis approaching 50% in the bilateral internal carotid arteries but no unstable plaques and no large vessel occlusion. He should increase his Crestor to 20 mg daily, continue his blood pressure medicines except Aldactone due to a mild hyperkalemia, and continue his 81 mg aspirin until he gets home to discuss further options with his primary medical team. He was encouraged to cut short his vacation and returned to [place] for consultation with his usual medical providers. Signs and symptoms of stroke were provided to both he and his , all questions were asked and answered. They expressed no concerns about going home this evening. 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 Otherwise continue his usual medications. No embolic source was otherwise found on echocardiogram. (3) Sleep initiation dysfunction (4) Depression (5) Coronary artery disease (6) Hypertension Condition: Good Height (Feet): 5 Height (Inches): 8.00 Weight (Kilograms): 118.5000 Diet: Heart Healthy Wound Care Instructions: N/A General: No Activity Restrictions Nursing Discharge Assessment Cognitive Status: Awake, Alert, Appropriate, Follows Commands Functional Status: Ambulates Independently, Eats Independently, Bathes Independently, Dresses Independently, Toilets Independently, Medicates Self Indepen., Appropriate for Age Is your patient leaving the hospital with any of these: None Plan of Care #1 Problem:: CVA Plan:: SCHEDULE AND ATTEND A FOLLOW-UP APPOINTMENT WITH YOUR PRIMARY CARE PROVIDER WHEN YOU RETURN HOME; TAKE ALL YOUR MEDICATIONS PRESCRIBED Goal:: NO NEED FOR READMISSION Level Of Pain At Discharge: 0 Pain Scale Does The Pt Understand How To Manage Their Pain At Home?: Yes Pain Management Plan of Care: TakeMedOnlyAsPrescribed, Ensure Adequate Hydration , Ensure Adequate Sleep Does Patient Have Valuables In Possession: No
--- OUTSIDE RECORDS SUMMARY | 2024-03-10 14:04 | XMS_ITS | Continuity of Care Document ---
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 Name Role Phone INCLUSIVE, INCLUSIVE Primary Care Physician Unav ailable Chief Complaint and Reason for Visit Chief Complaint NSTEMI/PULMONARY JODY MA Reason for Visit Pulmonary edema SOB (shortness of breath) Chest pressure NSTEMI (non-ST elevation myocardial infarction) Hypotension Elevated troponin I level SIRS (systemic inflammatory response syndrome) Macrocytic anemia Creatinine elevation Hyperphosphatemia Hypermagnesemia Leukocytosis, unspecified Pulmonary edema SOB (shortness of breath) Chest pressure NSTEMI (non-ST elevation myocardial infarction) Hypotension Elevated troponin I level SIRS (systemic inflammatory response syndrome) Macrocytic anemia Creatinine elevation Hyperphosphatemia Hypermagnesemia Leukocytosis, unspecified Allergies, Adverse Reactions, Alerts Allergen Type Severity Reaction Last Updated Verified Status hydrocodone ([id number]) Allergy Mild Other - describe in comments December 06, 2022 Yes Active tetracycline ([id number]) Allergy Mild Other - describe in comments December 06, 2022 Yes Active clavulanic acid ([id number]) Allergy Mild Diarrhea December 06, 2022 Yes Active amoxicillin ([id number]) Allergy Mild Diarrhea December 06, 2022 Yes Active atorvastatin ([id number]) Allergy Mild Other - describe in comments December 06, 2022 Yes Active provachol Allergy Mild Rash December 06, 2022 No Active Social History Smoking Status Unknown if ever smoked Observation Status Observation Response Date of Response Tobacco Status Never smoker December 28, 2022 7:41am Additional Data Assigned Sex Male Problems Active Problems Medical Problem Onset Date Status Chest pressure Active Coronary artery disease Active Creatinine elevation Active Depression Active Elevated troponin I level Active Hypermagnesemia Active Hyperphosphatemia Active Hypertension Active Hypotension Active Leukocytosis, unspecified Active Macrocytic anemia Active NSTEMI (non-ST elevation myocardial infarction) Active Pulmonary edema Active SIRS (systemic inflammatory response syndrome) Active SOB (shortness of breath) Active Sleep initiation dysfunction Act kayli TIA [...] 135 MG PO Once Per Day 30 30 December 07, 2022 5:10pm Escitalopram Oxalate (Lexapro*) 20 Mg TABLET Active 20 MG PO Once Per Day 30 30 December 07, 2022 5:10pm Fenofibric Acid (Choline) (Fenofibric Acid) 135 Mg CAPSULE.DR Active 1 CAP PO Once Per Day Hydrochlorothiazi de (Hctz Tab*) 25 Mg TAB Active 25 MG PO Once Per Day 30 30 December 07, 2022 5:10pm Lactobacillus Acidophilus (Acidophilus Probiotic*) 1 Each CAPSULE Active 1 EA PO Every Morning 30 30 December 07, 2022 5:10pm Losartan Potassium (Cozaar*) 25 Mg TABLET Active 100 MG PO Once Per Day 120 30 December 07, 2022 5:10pm Rosuvastatin Calcium (Crestor*) 20 Mg TABLET Active 20 MG PO Once Per Day 30 30 December 07, 2022 5:10pm Spironolactone (Aldactone*) 25 Mg TABLET Active 1 TAB PO Once Per Day Procedures Procedure Date Performed Status ROUTINE VENIPUNCTURE December 06, 2022 completed ROUTINE VENIPUNCTURE December 07, [address] HEAD/BRAIN W/O DYE December 06, 2022 completed MRI BRAIN STEM W/O DYE December 07, 2022 complete d X-RAY EXAM CHEST 1 VIEW December 06, 2022 complet ed METABOLIC PANEL TOTAL CA December 06, 2022 comple jarrett METABOLIC PANEL TOTAL CA December 07, 2022 comple jarrett URINALYSIS AUTO W/SCOPE December 06, 2022 complet ed VITAMIN B-12 December 07, 2022 completed REAGENT STRIP/BLOOD GLUCOSE December 06, 2022 com pleted ASSAY OF MAGNESIUM December 07, 2022 completed ASSAY OF PHOSPHORUS December 07, 2022 completed ASSAY THYROID STIM HORMONE December 07, 2022 comp leted ASSAY OF TROPONIN QUANT December 06, 2022 complet ed HEMATOCRIT December 07, 2022 completed HEMOGLOBIN December 07, 2022 completed COMPLETE CBC W/AUTO DIFF WBC December 06, 2022 co mpleted EVALUATE SWALLOWING FUNCTION December 07, 2022 co mpleted ELECTROCARDIOGRAM TRACING December 06, 2022 compl eted TTE W/DOPPLER COMPLETE December 07, 2022 complete d EXTRACRANIAL BILAT STUDY December 07, 2022 comple jarrett PT EVAL LOW COMPLEX 20 MIN December 07, 2022 comp leted OT EVAL LOW COMPLEX 30 MIN December 07, 2022 comp leted SELF CARE MNGMENT TRAINING December 07, 2022 comp leted EMERGENCY DEPT VISIT December 06, 2022 completed HOSPITAL OBSERVATION SERVICE, PER HOUR November completed December 07, [address], head, without contrast December 06, 2022 5:19 pm completed Portable x-ray of chest December 06, 2022 5:19pm completed MRI brain wo contrast December 07, 2022 6:00am co mpleted Portable x-ray of chest December 27, 2022 9:52pm c ompleted CT Chest WO contrast December 28, 2022 12:11am com pleted XR KUB December 28, 2022 4:55am completed Relevant Diagnostic Tests and/or Laboratory Data Laboratory Results Test Date/Time Result Interpretation Reference Range Result Comment Performing Site White Blood Count December 28, 2022 8:00am 7.4 3.6-11.1 [facility] [address] [place] [address] 65475 Red Blood Count December 28, 2022 8:00am 3.25 4.27-5.49 [facility] [address] [place] [address] 71817 Hemoglobin December 28, 2022 8:00am 10.3 12.9-16.1 [facility] [address] [place] [address] 47437 Hematocrit December 28, 2022 8:00am 31.4 37.7-46.5 [facility] [address] [place] [address] 23716 Mean Corpuscular Volume December 28, 2022 8:00am 96.6 79.3-94.8 [facility] [address] [place] [address] 43178 Mean Corpuscular Hemoglobin December 28, 2022 8:00am 31.7 26.8-33.2 [facility] [address] [place] [address] 37110 Mean Corpuscular Hemoglobin Concent December 28, 2022 8:00am 32.8 33.5-35.5 [facility] [address] [place] [address] 31162 Red Cell Distribution Width December 28, 2022 8:00am 15.6 12.0-15.1 [facility] [address] [place] [address] 94310 Platelet Count December 28, 2022 8:00am 100 165-353 [facility] [address] [place] [address] 02765 Mean Platelet Volume December 28, 2022 8:00am 10.1 7.5-10.6 [facility] [address] [place] [address] 80364 Neutrophils (%) (Auto) December 27, 2022 10:00pm 45.4 43.2-71.5 [facility] [address] [place] [address] 57463 Immature Granulocytes % December 27, 2022 10:00pm 0.4 0.0-0.5 [facility] [address] [place] [address] 87439 Lymphocytes (%) (Auto) December 27, 2022 10:00pm 34.5 16.8-43.4 [facility] [address] [place] [address] 86996 Monocytes (%) (Auto) December 27, 2022 10:00pm 7.6 4.6-12.4 [facility] [address] [place] [address] 61971 Eosinophils (%) (Auto) December 27, 2022 10:00pm 11.5 0.7-7.8 [facility] [address] [place] [address] 93649 Basophils (%) (Auto) December 27, 2022 10:00pm 0.6 0.2-1.2 [facility] [address] [place] [address] 20686 Nucleated Red Blood Cells % (auto) December 28, 2022 8:00am 0.0 0-0 [facility] [address] [place] [address] 49325 Neutrophils # (Auto) December 27, 2022 10:00pm 8.6 1.9-7.2 [facility] [address] [place] [address] 13629 Immature Granulocytes # December 27, 2022 10:00pm 0.1 0.0-0.1 [facility] [address] [place] [address] 78943 Lymphocytes # (Auto) December 27, 2022 10:00pm 6.6 1.1-2.7 [facility] [address] [place] [address] 94863 Monocytes # (Auto) December 27, 2022 10:00pm 1.5 0.3-0.8 [facility] [address] [place] [address] 15665 Eosinophils # (Auto) December 27, 2022 10:00pm 2.2 0.0-0.5 [facility] [address] [place] [address] 81710 Basophils # (Auto) December 27, 2022 10:00pm 0.1 0.0-0.1 [facility] [address] [place] [address] 49643 Nucleated Red Blood Cells # December 28, 2022 8:00am 0.0 0-0 [facility] [address] [place] [address] 94921 Erythrocyte Sedimentation Rate December 28, 2022 8:00am 27 0-20 [facility] [address] [place] [address] 13395 Prothrombin Time December 27, 2022 8:35pm 17.7 12.4-15.3 [facility] [address] [place] [address] 75989 Prothromb Time International Ratio December 27, 2022 8:35pm 1.39 INR Therapeutic Range:2.0-3.0 Oral Anticoagulant Therapy2.5-3.5 Prosthetic Heart Valves, Recurrent Systemic Embolism [facility] [address] [place] [address] 56555 Urine Color December 06, 2022 8:29pm Leigha [facility] [address] [place] [address] 90255 Urine Appearance December 06, 2022 8:29pm Hazy [facility] [address] [place] [address] 57101 Urine Specific [place] December 06, 2022 8:29pm 1.023 1.005-1.03 0 [facility] [address] [place] [address] 42319 Urine pH December 06, 2022 8:29pm 5.0 5.0-8.0 [facility] [address] [place] [address] 04262 Urine Leukocyte Esterase December 06, 2022 8:29pm NEGATIVE NEGATIVE [facility] [address] [place] [address] 40898 Urine Nitrite December 06, 2022 8:29pm NEGATIVE NEGATIVE [facility] [address] [place] [address] 32373 Urine Protein December 06, 2022 8:29pm NEGATIVE NEGATIVE [facility] [address] [place] [address] 03076 Urine Glucose (UA) December 06, 2022 8:29pm NEGATIVE NEGATIVE [facility] [address] [place] [address] 09595 Urine Ketones December 06, 2022 8:29pm TRACE NEGATIVE [facility] [address] [place] [address] 80057 Urine Urobilinogen December 06, 2022 8:29pm NEGATIVE NEGATIVE [facility] [address] [place] [address] 59976 Urine Bilirubin December 06, 2022 8:29pm NEGATIVE NEGATIVE [facility] [address] [place] [address] 39117 Urine Blood December 06, 2022 8:29pm NEGATIVE NEGATIVE [facility] [address] [place] [address] 12999 Urine Ascorbic Acid Level December 06, 2022 8:29pm NEGATIVE [facility] [address] [place] [address] 90514 Sodium Level December 28, 2022 8:00am 136 137-144 [facility] [address] [place] [address] 19915 Potassium Level December 28, 2022 8:00am 4.6 3.1-5.1 [facility] [address] [place] [address] 90747 Chloride Level December 28, 2022 8:00am 110 101-110 [facility] [address] [place] [address] 38875 Carbon Dioxide Level December 28, 2022 8:00am 15 23-31 [facility] [address] [place] [address] 08418 Glucose Level December 28, 2022 8:00am 185 70-105 [facility] [address] [place] [address] 09989 Blood Urea Nitrogen December 28, 2022 8:00am 57.0 8.4-25.7 [facility] [address] [place] [address] 91606 Creatinine December 28, 2022 8:00am 1.79 0.72-1.25 [facility] [address] [place] [address] 32195 Estimated Creatinine Clearance Calc December 28, 2022 8:00am 45.28 PT Ht: 175.26cm, PT Wt: 121.9KG [facility] [address] [place] [address] 19367 Anion Gap December 28, 2022 8:00am 16 7-16 [facility] [address] [place] [address] 62578 Calcium Level December 28, 2022 8:00am 8.3 8.4-10.2 [facility] [address] [place] [address] 41020 Phosphorus Level December 27, 2022 10:00pm 5.1 2.3-4.7 [facility] [address] [place] [address] 66266 Total Bilirubin December 28, 2022 8:00am 0.7 0.1-1.2 [facility] [address] [place] [address] 34405 Total Protein December 28, 2022 8:00am 6.2 6.0-8.3 [facility] [address] [place] [address] 95837 Albumin December 28, 2022 8:00am 3.3 3.2-5.2 [facility] [address] [place] [address] 29729 Globulin December 28, 2022 8:00am 2.9 2.6-4.6 [facility] [address] [place] [address] 09757 Albumin/Globu selin Ratio December 28, 2022 8:00am 1.1 1.1-2.5 [facility] [address] [place] [address] 78689 Aspartate Amino Transf (AST/SGOT) December 28, 2022 8:00am 124 5-34 [facility] [address] [place] [address] 00727 Alkaline Phosphatase December 28, 2022 8:00am 34 40-150 [facility] [address] [place] [address] 51537 Alanine Aminotransfer ase (ALT/SGPT) December 28, 2022 8:00am 24 0-55 [facility] [address] [place] [address] 51641 Magnesium Level December 27, 2022 10:00pm 2.8 1.6-2.6 Result verified by repeat testing.Slight hemolysis present. Result may be affected. [facility] [address] [place] [address] 88665 C-Reactive Protein December 28, 2022 8:00am 41.1 0.0-5.0 [facility] [address] [place] [address] 19665 Cholesterol Level December 28, 2022 3:59am 90 0-200 [facility] [address] [place] [address] 45467 Triglycerides Level December 28, 2022 3:59am 66.0 0.0-150.0 [facility] [address] [place] [address] 34585 HDL Cholesterol December 28, 2022 3:59am 27 40-100 [facility] [address] [place] [address] 84306 VLDL Cholesterol December 28, 2022 3:59am 13 5-40 [facility] [address] [place] [address] 20363 LDL Cholesterol December 28, 2022 3:59am 50 0.0-129.0 [facility] [address] [place] [address] 11012 Troponin December 28, 2022 8:00am 39.329 0.030-0.11 8 Critical result called by DERIC at 2022-12-28 08:53:15 to AMADOR TURNER RN and R/V. [facility] [address] [place] [address] 70680 Vitamin B12 Level December 27, 2022 10:00pm 334 213-816 [facility] [address] [place] [address] 35644 Folic Acid (LAB) December 27, 2022 10:00pm 8.4 7.0-31.4 [facility] [address] [place] [address] 92193 Thyroid Stimulating Hormone (TSH) December 07, 2022 9:39am 2.2743 0.3500-4.9 400 [facility] [address] [place] [address] 59206 Hemoglobin A1c December 28, 2022 3:59am 4.9 0.0-6.4 HbA1c Value (%) Glycemic Goal<8 Less stringent<7 General (non- adults)<6.5 More stringent [facility] [address] [place] [address] 90009 Mean Blood Glucose December 28, 2022 3:59am 97.1 [facility] [address] [place] [address] 50973 Parathyroid Hormone (Intact) December 28, 2022 3:59am 108.3 8.7-77.1 [facility] [address] [place] [address] 57969 B-Type Natriuretic Peptide December 28, 2022 3:59am 2003.0 0.0-100.0 Plasma concentrations of natriuretic peptides may be elevated in patients with acute myocardial infarction and renal insufficiency. [facility] [address] [place] [address] 24857 Vitamin D 25-Hydroxy December 27, 2022 10:00pm 21.8 30-100 Vitamin D levels can be affected by concomitant disease, patient age, and can also vary by time of year. [facility] [address] [place] [address] 93618 Lactic Acid (Sepsis) December 28, 2022 1:05am 2.16 0.50-2.00 Critical result called by DARRON at 2022-12-28 01:25:56 to SHAYLEE SUTTON/JULIA and R/V. [facility] [address] [place] [address] 34693 Lactic Acid (Sepsis) Reflex December 28, 2022 3:59am 1.83 0.50-2.00 [facility] [address] [place] [address] 76600 Procalcitonin December 28, 2022 8:00am 1.59 0-0.05 Suspected Lower Respiratory Tract Infection:0.10- 0.25ng/mL- Low likelihood for bacterial infection; Antibiotics discouraged.>0. 25ng/mL- Increased likelihood for bacterial infection; Antibiotics encouraged.Susp ected Sepsis: 0.10-0.50ng/mL- Low likelihood of sepsis; Antibiotics discouraged.>0. 50ng/mL- Increased likelihood of sepsis;Antibiot ics encouraged.>2.0 0ng/mL- High risk of sepsis/septic shock;Antibioti cs strongly encouraged.Deci sions on antibiotic use should not be based solely on PCT concentrations. A single PCT level does not accurately differentiate bacterial infection from viral infection and should not be used to inform the decision on whether to initiate or withhold antibiotics in patients with known or suspected infection. Serial levels should always be followed. If initial PCT is <=0.25ng/mL, repeat in 6-24 hours. If repeat is <=0.25ng/mL, consider stopping antibiotics. If PCT is elevated, use complete clinical judgement for antibiotics. [facility] [address] [place] [address] Coronavirus (COVID-19)(PC R) December 28, 2022 9:20am NEGATIVE NEGATIVE Testing performed using [employer] COVID-19 PCR technology. This test was developed and its performance characteristics determined by [employer]. The test has not been FDA approved but has been authorized by FDA under an Emergency Use Authorization (EUA). The EUA for this test is in effect for the duration of the COVID-19 declaration justifying emergency use of in vitro diagnostics unless terminated or revoked (after which the test may no longer be used).Terms of use require the following Fact Sheets be provided with this test report:Fact Sheet for Providers: https://www.fda .gov/media/9071 23/downloadFact Sheet for Patients: https://www.fda .gov/media/6594 24/downloadA positive test result for COVID-19 indicates that RNA from SARS-CoV-2 was detected and the patient is infected with the virus and presumed to be contagious.A negative test result indicates SARS-CoV-2 RNA was not present in the specimen above the limit of detection. However, a negative result does not rule out COVID-19 and should not be used as the sole basis for treatment or patient management decisions. Test results should always be considered in the context of clinical observations and epidemiological data in making a final diagnosis and patient management decisions. [facility] [address] [place] [address] 44470 Bedside Troponin I December 27, 2022 10:04pm 0.58 0.03-0.118 POC INTERFACE [address] [place] [address] 46839 POC Glucose December 06, 2022 7:18pm 89 74-106 POC INTERFACE [address] [place] [address] 15038 Arterial Blood pH December 27, 2022 10:05pm 7.25 7.35-7.45 [facility] [address] [place] [address] 22566 Arterial Blood Partial Pressure CO2 December 27, 2022 10:05pm 40 35-45 [facility] [address] [place] [address] 70590 Arterial Blood Partial Pressure O2 December 27, 2022 10:05pm 155 80-100 [facility] [address] [place] [address] 58157 Arterial Blood Oxygen Saturation December 27, 2022 10:05pm 99 90-100 [facility] [address] [place] [address] 17428 Arterial Blood HCO3 December 27, 2022 10:05pm 17 22-26 [facility] [address] [place] [address] 78507 Arterial Blood Base December 27, 2022 10:05pm -10 -2-2 [facility] [address] [place] [address] 68990 Blood Gas Patient Conditions December 27, 2022 10:05pm BIPAP SETTINGS Mode: S/TRate: 10IPAP: 12 [id number]: 6 [id number]: 50 [facility] [address] [place] [address] 45472 Blood Gas Puncture Site December 27, 2022 10:05pm LT Radial [facility] [address] [place] [address] 02359 Beny Test December 27, 2022 10:05pm NOT OBTAINABLE [facility] [address] [place] [address] 97671 Blood Gas Comments December 27, 2022 10:05pm SITE HELD AND SEALED POSITIVE DISTAL PULSE NOTED. [facility] [address] [place] [address] 69127 Methicillin-R esist S.aureus DNA PCR December 28, 2022 9:20am NEGATIVE NEGATIVE Test is designed to detect MRSA colonization from nasal swabs in patients at risk for nasal colonization.Th is assay is not intended to diagnose MRSA nor to guide or monitor treatment of MRSA infections. [facility] [address] [facility] [address] Diagnostic Imaging Reports Report Dictated Date/Time Dictated By Status December 06, 2022 5:47pm LATESHA Monterroso MD completed [facility] [address] [facility], [place] [id number] --------- Patient: IRVING ACOSTA : 1945 Sex: M Address: Phone: Unit #: [id number] [facility] SEQ #: [id number] Location: ED Room #: Ordering: JOSE COHEN [...] Signed by: LATESHA ANTOINE II, MD 12/06/22 0949 cc: JOSE COHEN PA-C, II,LATESHA Davis MD ~ Report Dictated Date/Time Dictated By Status December 06, 2022 5:48pm LATESHA Monterroso MD completed [address] [id number] --------- Patient: IRVING ACOSTA : 1945 Sex: M Address: Phone: Unit #: [id number] RE SEQ #: [id number] Location: ED Room #: Ordering: JOSE COHEN PA-C Diagnosis: CONFUSED CHEST PORTABLE - 1 VIEW History: CONFUSED CONFUSED Single view chest. Cardiomegaly. Vascular prominence. Status post median sternotomy. Negative for pneumothorax. IMPRESSION: Cardiomegaly and suggestion of vascular congestion. Final report electronically signed by: Latesha Antoine MD on 12/06/2022 5:48 PM Signed by: LATESHA ANTOINE II, MD 12/06/22 3721 cc: JOSE COHEN PA-C, II,LATESHA Davis MD ~ Report Dictated Date/Time Dictated By Status December 07, 2022 9:47am JAEL HYDE DO [address] [address] --------- Patient: IRVING ACOSTA : 1945 Sex: M Address: [address] [place] [address] [place] [address] Unit #: [id number] RE SEQ #: [id number] Location: [facility] Room #: [id number] Ordering: SOLITARIO GALINDO MD Diagnosis: TIA -------- [...] AM Signed by: JAEL HYDE DO 12/07/22 0947 cc: JAEL HYDE MARK N MD ~ Report Dictated Date/Time Dictated By Status December 07, 2022 8:22am LALY WHEELER MD completed [address] [address] --------- Patient: IRVING ACOSTA : 1945 Sex: M Address: [address] [place] [address] [place] [address] Unit #: [id number] RE SEQ #: [id number] Location: [facility] Room #: [id number] Ordering: SOLITARIO GALINDO MD Diagnosis: TIA -------- [address] [address] Study Date: 12/07/2022 08:22 AM Name: IRVING ACOSTA Exam:Adult Echocardiogram : 1945 Age: 77 yrs Gender: Male Patient Location: [facility]^P Referring Physician: JOSIE Ordering Physician: SOLITARIO GALINDO Performed By: Giselle Skaggs MBA,[facility] History: CABG,Hyperlipidemia,Hypertension,AVR Reason For Study: STROKE/ TIA [...] December 07, 2022 4:13pm IRVING MARRERO MD [address] [id number] --------- Patient: IRVING ACOSTA : 1945 Sex: M Address: [address] [place] [address] [place] [address] Unit #: [id number] [facility] SEQ #: [id number] Location: [facility] Room #: [id number] Ordering: SOLITARIO GALINDO MD Diagnosis: TIA -------- [...] PM Signed by: IRVING MARRERO MD 12/07/22 1499 cc: SOLITARIO GALINDO MD, JEFFREY MD ~ Report Dictated Date/Time Dictated By Status December 27, 2022 10:37pm Marian CATHERINE [address] [address] --------- Patient: IRVING ACOSTA : 1945 Sex: M Address: [address] [place] [address] [place] [address] Unit #: [id number] RE SEQ #: [id number] Location: ED Room #: Ordering: LIANNE SEXTON MD Diagnosis: SOB STUDY: Chest radiograph. INDICATION: Shortness of breath COMPARISON: Chest radiograph December 06, 2022 TECHNIQUE: AP FINDINGS: TUBES, LINES AND DEVICES: None. HEART AND MEDIASTINUM: Cardiomediastinal silhouette is stable. Median sternotomy . LUNGS: The lungs are well inflated. Bilateral pulmonary opacities suggestive of mild pulmonary edema. More confluent left basilar opacity likely secondary to a small effusion and atelectasis. No p neumothorax. OSSEOUS STRUCTURES AND SOFT TISSUES: No acute osseous abnormality. Unremarkable overlying soft tissue and visualized upper abdomen. IMPRESSION: Mild cardiomegaly with bilateral pulmonary opacities suggestive of mild interstitial edema and more confluent left basilar opacity likely reflecting a small effusion and atelectasis. Final report electronically signed by: Abbey Harris MD on 12/27/2022 10:37 PM Signed by: ABBEY HARRIS MD 12/27/22 2425 cc: ABBEY HARRIS MD, SEAN MD ~ Report Dictated Date/Time Dictated By Status December 28, 2022 5:04am KENTON HAND MD completed [address] [address] --------- Patient: IRVING ACOSTA : 1945 Sex: M Address: [address] [place] [address] [place] [address] Unit #: [id number] REQ SEQ #: [id number] Location: [facility] Room #: 5504-P Ordering: NITIN IGLESIAS MD Diagnosis: NSTEMI/PULMONARY EDEMA ---- History: Non-ST elevation myocardial infarction COMPARISON: There is no prior CT chest with and imaging archive TECHNIQUE: Axial CT images were acquired through the chest without administration of intravenous contrast. Coronal and sagittal referred images are provided. Automated exposure control was used. FINDINGS: The heart is enlarged. Patient status post median sternotomy coronary to bypass graft, and aortic valve repair. There is some mild mitral leaflet calcification. There is pulmonary arterial enlargement.. There is some mild mediastinal lymph node enlargement. Included upper abdominal structures demonstrate cholelithiasis and fatty infiltration of the liver. Artifact related to body habitus limits evaluation of the gallbladder wall and immediate pericholecystic space. There is mild emphysema. Bronchial wall thickening is present. The shape of the chest with support obstructive small airways disease. Is mild interlobular septal thickening and generalized ground glass opacities of the majority of the lungs small right and trace left pleural fluid collections are present. There is some mild dependent airspace opacity within the right greater than left lower lobes. IMPRESSION: 1. Patient status post median sternotomy, aortic valve repair, and coronary arterial calcification. Some mild mitral calcification is present. 2. The heart is enlarged. There is evidence of pulmonary arterial hypertension. 3. Mild emphysema and obstructive small airways disease is suspected. There is mild interlobular septal thickening and generalized hazy airspace opacity throughout the majority of the lungs favored to reflect primarily pulmonary edema ability to exclude some component of being pneumonia. 6. Small right and trace pleural fluid collections are present. There is mild nonspecific dependent airspace opacity within the right greater than left lung base with considerations including atelectasis, aspiration, and/or pneumonia. 7. Included abdomen demonstrates cholelithiasis and fatty infiltration of the liver. Local artifact limits assessment of the gallbladder wall and immediate pericholecystic space. Final report electronically signed by: Kenton Hand MD on 12/28/2022 5:04 AM Signed by: KENTON HAND MD 12/28/22 0504 cc: KENTON HAND MD, PRASANNA MD ~ Report Dictated Date/Time Dictated By Status December 28, 2022 6:21am KENTON HAND MD [address] [id number] --------- Patient: IRVNIG ACOSTA : 1945 Sex: M Address: [address] [place] [address] [place] [address] Unit #: [id number] REQ SEQ #: [id number] Location: [facility] Room #: [facility]4-P Ordering: NITIN IGLESIAS MD Diagnosis: NSTEMI/PULMONARY EDEMA ---- History: Abdominal pain FINDINGS: Supine abdominal radiograph is provided. Exam is limited by body habitus. Patient status post bilateral hip arthroplasty visualized bowel gas pattern is nonobstructive. IMPRESSION: Exam is limited by body habitus. Visualized bowel gas pattern is nonobstructive. Final report electronically signed by: Kenton Hand MD on 12/28/2022 6:21 AM Signed by: KENTON HAND MD 12/28/22 0621 cc: KENTON HAND MD, PRASANNA MD ~ Report Dictated Date/Time Dictated By Status December 28, 2022 8:18am GE WESTFALL MD completed [address] [id number] --------- Patient: IRVING ACOSTA : 1945 Sex: M Address: [address] [place] [address] [place] [address] Unit #: [id number] REQ SEQ #: [id number] Location: [facility] Room #: 39434-P Ordering: NITIN IGLESIAS MD Diagnosis: NSTEMI/PULMONARY EDEMA ---- [address] [address] Study Date: 12/28/2022 08:18 AM Name: IRVING ACOSTA Exam:Adult Echoc ardiogram : 1945 Age: 77 yrs Gender: Male Patient Location: [place] [address]^ Referring Physician: HARRIS Ordering Physician: NITIN IGLESIAS Performed By: Sera Bañuelos RDCS History: CAD,CABG,Hyperlipidemia,Hypertension,AV replacementhh Reason For Study: EF, WM Height: 69 in Weight: 269 lb BSA: 2.3 m2 HR: 75 BP: 113/44 mmHg Interpretation Summary A two-dimensional transthoracic echocardiogram with color flow and Doppler was performed in limited views only. The quality of the study is Fair. The left ventricle is moderately dilated. Ejection Fraction = 40-45%. The right ventricle is grossly normal size. The right ventricular systolic function is moderately reduced. There is mild mitral regurgitation. The valvular structures were not fully interogated. Compared to the 12/07/22 echo the LVEF has declined. Procedure A two-dimensional transthoracic echocardiogram with color flow and Doppler was performed in limited views only. LIMITED STUDY, COMPARE TO 12/07/22. The quality of the study is Fair. The subcostal views were difficult to obtain and are suboptimal in quality. The suprasternal views were not obtained due to limited study. Definity, an ultrasound enhancement agent, was administered to improve assessment of the EF. Left Ventricle The left ventricle is moderately dilated. The left ventricular mass index is moderately abnormal. The RWT is 0.33. Eccentric hypertrophy. Ejection Fraction = 40- 45%. Diastolic function is indeterminate. There is basal anteroseptal wall severe hypokinesis. There is mid anteroseptal wall severe hypokinesis. The remaing wall segments are hypokinetic. There is no thrombus. There is no ventricular septal defect visualized. Left Atrium The left atrial size is 'normal'. Atrial septum not well visualized. Right Atrium Right atrial size is normal. Right Ventricle The right ventricle is not well visualized. The right ventricle is grossly normal size. The right ventricular systolic function is moderately reduced. Aortic Valve The aortic valve is not well visualized. Trace (trivial) aortic regurgitation. Mitral Valve The mitral valve is grossly normal. There is no mitral valve stenosis. There is mild mitral regurgitation. Tricuspid Valve The tricuspid valve is not well visualized. Pulmonic Valve The pulmonic valve is not well visualized. Great Vessels The pulmonary is not well visualized. MMode/2D Measurements & Calculations RVDd: 3.6 cm LVIDd: 6.5 cm FS: 18.9 % IVSd: 1.1 cm LVIDs: 5.2 cm EDV(Teich): 213.0 ml LVPWd: 1.1 cm ESV(Teich): 131.8 ml EF(Teich): 38.1 % LV mass(C)d: 300.0 grams LVLd ap4: 9.5 cm LVLd ap2: 8.7 cm LV mass(C)dI: 128.1 grams/m2 EDV(MOD-sp4): 196.0 ml EDV(MOD-sp2): 215.0 ml LVLs ap4: 8.5 cm LVLs ap2: 7.5 cm ESV(MOD-sp4): 112.0 ml ESV(MOD-sp2): 115.0 ml EF(MOD-sp4): 42.9 % EF(MOD-sp2): 46.5 % SV(MOD-sp4): 84.0 ml RVIDd/LVIDd_phl: 0.55 RWT: 0.33 Doppler Measurements & Calculations MV E max enoch: 115.0 cm/sec MV dec slope: 780.0 cm/sec2 Lat Peak E' Enoch: 5.8 cm/sec MV A max enoch: 92.1 cm/sec MV dec time: 0.15 sec MV E/A: 1.2 Med Peak E' Enoch: 5.0 cm/sec LV V1 max P.4 mmHg MR max enoch: 325.0 cm/sec LV V1 mean P.0 mmHg MR max P.3 mmHg LV V1 max: 105.0 cm/sec LV V1 mean: 83.7 cm/sec LV V1 VTI: 27.9 cm MV P1/2t-pr_phl: 43.0 msec E/E' lat: 19.8 E/E' med: 23.2 Electronically signed by: Ge Westfall 12/28/2022 09:49 AM Ordering Physician: NITIN IGLESIAS Referring Physician: HARRIS Performed By: Sera Bañuelos RDCS Signed by: GE WESTFALL MD 12/28/22 0949 cc: GE WESTFALL MD, PRASANNA MD ~ Vital Signs Vital Reading Result Reference Range Collection Date/Time BMI (Body Mass Index) 39.0 kg/m2 December 28, 2022 1:00am Height 69 [in_i] December 28, 2022 12:08am Height 175.935912 cm December 28 12:08am Weight 268.74 [lb_av] December 28 12:08am Weight 121.9000 kg December 28, 2022 12:08am Advance Directives Advance Directive Response Recorded Date/ Time Does the Patient Have an Advance Directive? December 28, 2022 1:00am Is The Patient An Organ Donor? A pril 2022 1:00am Insurance Providers Guarantor Irving Acosta Address [address] [facility] [address] Contact Info. Home Phone: Payer Policy Id Coverage Id Subscriber's Name Subscriber Id Effective Date Expiration Date Medicare A&B [id number] 98 Irving Acosta [id number] Out Of State Ppo [id number] Irving Acosta [id number] Encounters Encounter Location(s) Arrival/Admit Date Discharge/Depart Date Provider(s) Discharged Inpatient [facility] December 27, 2022 11:14pm December 28, 2022 12:20pm RADHA BIRMINGHAM DO Discharged Inpatient (obs) [facility] December 06, 2022 8:25pm December 07, 2022 5:45pm ADARSH COLON MD Recent Diagnosis Onset Date Pulmonary edema SOB (shortness of breath) Chest pressure NSTEMI (non-ST elevation myocardial infa rction) Hypotension Elevated troponin I level SIRS (systemic inflammatory response syn drome) Macrocytic anemia Creatinine elevation Hyperphosphatemia Hypermagnesemia Leukocytosis, unspecified Functional Status Observation Response Date Recorded Functional Status Ambulates Independently December 07, 2022 5:19pm Eats Independently December 07 5:19pm Bathes Independently December 07, 2022 5:19pm Dresses Independently November 5:19pm Toilets Independently November 5:19pm Medicates Self Indepen. December 072022 5:19pm Appropriate for Age December 07, 2022 5:19pm Mental Status Observation Response Date Recorded Level of Consciousness Alert December 11:51pm Appropriate December 27, 2022 11:51pm Awake December 27, 2022 11:51pm Follows Commands December 27, 2022 11:51pm Assessments Diagnosis Onset Date Resolution Status Pulmonary edema Active SOB (shortness of breath) Ac tive Chest pressure Active NSTEMI (non-ST elevation myocardial infarction) Active Hypotension Active Elevated troponin I level Ac tive SIRS (systemic inflammatory response syndrome) Active Macrocytic anemia Active Creatinine elevation Active Hyperphosphatemia Active Hypermagnesemia Active Leukocytosis, unspecified Ac tive Plan of Treatment Future Tests Future scheduled test information is unavailable Pending Tests Test Name Ordered Date Scheduled Date Blood Culture December 28, 2022 1:05am SARS-CoV-2 (PCR) December 28, 2022 9:30am Influenza Type A (RT-PCR) December 28, 2022 9:30am Influenza Type B (RT-PCR) December 28, 2022 9:30am Respiratory Syncytial Virus (RT-PCR December 28, 023 9:30am Ionized Calcium (Measured) December 28, 2022 3:59a m Streptococcus pneumoniae Antigen December 28, 2022 11:10am Bacterial Antigen Specimen Source December 28 11:10am Urine Legionella Antigen December 28, 2022 11:10am Future Visits Future appointment information is unavailable Referrals to Other Providers Referral information is unavailable Future Procedures Procedure Name Ordered Date Scheduled Date ED NPO TIL ASPIRATION SCREENED December 06, 2022 5:19pm December 06, 2022 5:19pm ED Aspiration Risk Screening December 06, 2022 5: 19pm December 06, 2022 5:19pm ED NEURO CHECKS Q 2 HR December 06, 2022 5:19pm M arch 2022 5:19pm ED NIHSS December 06, 2022 5:19pm December 062022 5:19pm ED O2 Oxygen Nasal Cannula December 06, 2022 5:19 pm December 06, 2022 5:19pm Blood Glucose (ED) FSBS December 06, 2022 5:19pm December 06, 2022 5:19pm EKG (Emergency Dept. ONLY) December 06, 2022 5:19 pm December 06, 2022 5:19pm ED Consult for Admit December 06, 2022 7:52pm [facility] 2022 7:52pm Admission Orders December 06, 2022 8:25pm November 222022 8:24pm Admission Certification December 07, 2022 12:59am December 07, 2022 12:55am Code Status December 07, 2022 12:59am November 222022 12:55am O2 Oxygen Titration Protocol December 07, 2022 12 :59am December 07, 2022 12:55am Pulse Oximetry (Spot Check) December 07, 2022 12: 59am December 07, 2022 12:55am PT REQUEST FOR SERVICE December 07, [...] 2022 5:0 6pm December 07, 2022 5:06pm EKG (Emergency Dept. ONLY) December 27, 2022 9:53p m December 27, 2022 9:52pm Admission Orders December 27, 2022 11:14pm December 272022 11:14pm CALCIUM IONIZED December 27, 2022 11:45pm December 6:00am Teletracking InhouseTransfer December 27, 2022 11: 57pm December 27, 2022 11:49pm eICU Provider Consult December 27, 2022 11:57pm Ap 2022 11:49pm Non-invasive PPV - BiPAP December 27, 2022 11:57pm December 27, 2022 11:49pm O2 Oxygen Titration Protocol December 27, 2022 11: 57pm December 27, 2022 11:49pm Continuous Pulse Oximetry Tele December 27, 2022 1 1:57pm December 27, 2022 11:49pm Teletracking Tele Order December 27, 2022 11:57pm December 27, 2022 11:49pm Activity Order December 27, 2022 11:57pm December 11:49pm Initiate Skin Care Protocol December 27, 2022 11:5 7pm December 27, 2022 11:49pm FALLS RISK PRECAUTIONS December 27, 2022 11:57pm A pril 2022 11:49pm STRICT I&O INTAKE AND OUTPUT December 27, 2022 11: 57pm December 27, 2022 11:49pm Nursing 12 Lead EKG December 27, 2022 11:57pm Apri l 2022 11:49pm IV Access Protocol December 27, 2022 11:57pm December 27, 2022 11:49pm Reason BetaBlocker Not Ordered December 27, 2022 1 1:57pm December 27, 2022 11:49pm Reason Lawrence Not Ordered December 27, 2022 11:57pm A pril 2022 11:49pm Reason ARB Not Ordered December 27, 2022 11:57pm A pril 2022 11:49pm Verify December 27, 2022 11:57pm December 11:49pm Maintain Oxygen Saturation December 27, 2022 11:57 pm December 27, 2022 11:49pm Admission Certification December 27, 2022 11:57pm December 27, 2022 11:49pm Code Status December 27, 2022 11:57pm December 11:49pm Urinary Retention Protocol December 27, 2022 11:57 pm December 27, 2022 11:49pm Telemetry Physician Order December 27, 2022 11:57p m December 27, 2022 11:49pm VTE Risk Assessment December 27, 2022 11:57pm Apri l 2022 11:49pm VTE Mech. Prophylaxis Device ( December 27, 2022 1 1:57pm December 27, 2022 11:49pm Reason VTE PHA Prophy Not Ord December 27, 2022 11 :57pm December 27, 2022 11:49pm Teletracking Tele Order December 27, 2022 11:57pm December 27, 2022 11:49pm BLOOD CULTURE December 28, 2022 12:10am December 11:59pm PHYSICIAN CONSULT December 28, 2022 12:11am December 28, 2022 12:11am ELECTROCARDIOGRAM December 28, 2022 4:55am December 282022 4:55am HIGH LIFT MULE OPERATOR CONSULT December 28, 2022 6:22am Apri l 2022 6:20am PASTORAL CONSULT December 28, 2022 7:43am December 7:42am Nursing Aspiration Screen December 28, 2022 7:43am December 28, 2022 7:42am NPO NURSING ASPIRATION SCREEN December 28, 2022 7: 43am December 28, 2022 7:42am Ensure Pt Receives ASA W/In 24 December 28, 2022 7 :52am December 28, 2022 7:50am Ensure Pt Receives Rx for ASA December 28, 2022 7: 52am December 28, 2022 7:50am Ensure a Beta-Chrissy is Rx at December 28, 2022 7 :52am December 28, 2022 7:50am Ensure An LAWRENCE-I or ARB Rx If L December 28, 2022 7 :52am December 28, 2022 7:50am Teach: ACS Disease Process December 28, 2022 7:52a m December 28, 2022 7:50am Teach: Risk for Infection December 28, 2022 7:52am December 28, 2022 7:50am PICC LINE INSERTwoImaging 5y/> December 28, 2022 8 :05am December 28, 2022 8:04am Bedside Specialty Food Products Supervisor December 28, 2022 8:05am A pril 2022 8:04am PCXR if indicated -Special Pro December 28, 2022 8 :05am December 28, 2022 8:04am PICC OK To Use December 28, 2022 8:05am December 8:04am Collect Specimen December 28, 2022 8:28am December 8:27am Nurse To Collect COVID Specime December 28, 2022 9 :05am December 28, 2022 9:05am ELECTROCARDIOGRAM December 28, 2022 9:05am December 282022 9:05am TROPONIN December 28, 2022 9:06am December 2:00pm TROPONIN December 28, 2022 9:06am December 8:00pm SARS-COV-2 FLU RSV (RT PCR) December 28, 2022 9:31 am December 28, 2022 9:30am LEGIONELLA AG URINE December 28, 2022 9:31am December 28, 2022 9:30am S. PNEUMO AG, URINE/CSF December 28, 2022 9:31am A pril 2022 9:30am Collect Specimen-Urine December 28, 2022 9:31am Ap ril 2022 9:30am Collect Specimen-Urine December 28, 2022 9:31am Ap ril 2022 9:30am AMBULANCE TRANSPORT December 28, 2022 11:17am Apri l 2022 11:15am Teletracking DCConfirmOrder December 28, 2022 11:1 7am December 28, 2022 11:15am Future Medications Future medication information is unavailable Patient Instructions Symptoms of Stroke Risk Factors for Stroke Stroke Self Care After Stroke Prevention Activity
--- OUTSIDE RECORDS SUMMARY | 2024-03-10 14:04 | XMS_ITS | Continuity of Care Document ---
Author Name Unknown Organization [facility] Address [address] [place] [address] Care Team Providers Care Carbon Electrodes Supervisor Name Role Phone Carlos Hernandez Primary Care Physician Encounter [facility] Date(s): 03/07/24 - 03/07/24 [facility] [address] [place] [address] Discharge Disposition: Home or Self Care Attending Physician: Nataly Tom MD Admitting Physician: Nataly Tom MD Referring Physician: Nataly Tom MD Results Laboratory List Name Date Glucose POCT 03/07/24 Most recent to oldest [Reference Range]: 1 Glucose POC [74-106 mg/dL] 105 mg/dL (03/07/24 9:58 AM) Social History Social History Type Response Sex Male Patient Care team information Care Team Personnel Name: Carlos Hernandez DO Position: No Access Member Role: Primary Care Physician Address: Address: [facility] [address] [place], [place] [address]
[2024-03-10] MEDS: Acetaminophen 500 MG TAB 1000 MG PO (14:15)
[2024-03-10 14:16] VITALS: BP 132/65; PULSE 68
[2024-03-10] MEDS: Ondansetron O.D.T. 4 MG TABEF PO (14:16)
[2024-03-10 14:57] VITALS: BP 138/51; PULSE 69; O2SAT 98
== END 2024-03-10 14:57 | disposition home or self-care (01) ==
PROVIDERS: Emergency Provider Physician Assistant; PCP Family Medicine
DX: M25.551 Pain in right hip (principal); S30.0XXA Contusion of lower back and pelvis, initial encounter; E11.22 Type 2 diabetes mellitus with diabetic chronic kidney disease; N18.30 Chronic kidney disease, stage 3 unspecified; I10 Essential (primary) hypertension; I25.10 Atherosclerotic heart disease of native coronary artery without angina pectoris; I25.2 Old myocardial infarction; E78.5 Hyperlipidemia, unspecified; Z95.1 Presence of aortocoronary bypass graft; Z95.810 Presence of automatic (implantable) cardiac defibrillator; Z95.4 Presence of other heart-valve replacement; Z96.41 Presence of insulin pump (external) (internal); X50.0XXA Overexertion from strenuous movement or load, initial encounter; Y93.39 Activity, other involving climbing, rappelling and jumping off; Y92.018 Other place in single-family (private) house as the place of occurrence of the external cause
CPT/HCPCS: 99284; 72100; 72192; 73502

== ENCOUNTER → 2024-04-23 13:08 | Outpatient (BNVA) | payer MEDICARE, BC, SELFPAY | PROVIDERS: PCP Family Medicine; Referring Provider Family Medicine; Visit Provider Physician Assistant Surgical | DX: R91.8 Other nonspecific abnormal finding of lung field (principal); J44.9 Chronic obstructive pulmonary disease, unspecified; G47.33 Obstructive sleep apnea (adult) (pediatric); I25.810 Atherosclerosis of coronary artery bypass graft(s) without angina pectoris; N18.30 Chronic kidney disease, stage 3 unspecified; I50.20 Unspecified systolic (congestive) heart failure | CPT/HCPCS: 99214 ==

== ENCOUNTER 2024-09-23 14:12 | Outpatient (CLI) | payer MEDICARE, BC, SELFPAY ==
[2024-09-23 13:12] LABS: Abs Immature Grans 0.01 10^3/uL (0.0-0.06); Absolute Basophil Count 0.04 10^3/uL (0.0-0.2); Absolute Eosinophil Count 0.56 10^3/uL (0.0-0.7); Absolute Lymphocyte Count 0.71 10^3/uL (1.2-3.4); Absolute Monocyte Count 0.54 10^3/uL (0.1-0.8); Absolute Neutrophil Count 3.12 10^3/uL (1.2-6.7); Basophils % 0.8 %; Eosinophils % 11.2 %; HGB 12.8 g/dL (13.5-17.5); Immature Grans % 0.2 %; Lymphocytes % 14.3 %; MCH 29.6 pg (27.0-33.0); MCV 92 fL (80-95); MPV 9.6 fL (8.0-11.0); Monocytes % 10.8 %; Neutrophils % 62.7 %; RBC 4.33 10^6/uL (4.36-5.78); RDW 14.6 % (11.8-14.1); RDW-SD 49.6 fL; WBC 4.98 10^3/uL (4.4-10.8)
[2024-09-23 13:26] LABS: Platelet Count 94 10^3/uL (130-400)
[2024-09-23 13:41] LABS: Anion Gap 6.5 mmol/L (3-11); BUN 34 mg/dL (7-18); CO2 27.5 mmol/L (21.0-32.0); CREATININE 1.4 mg/dL (0.70-1.30); Calcium 8.7 mg/dL (8.5-10.1); Chloride 107 mmol/L (98-107); Estimated GFR 51.45 (mL/min/1.73m2); Glucose 100 mg/dL (74-106); Potassium 4.8 mmol/L (3.5-5.1); Sodium 141 mmol/L (136-145)
--- OUTSIDE RECORDS SUMMARY | 2024-09-23 14:15 | XMS_ITS | Clinical Summary ---
Author Organization [employer] (a[employer]) Address [address] [place] [address] Care Team Providers Care Protection Officer Name Role Phone Williams Yip MD Primary Care Provider [phone] Nela Trejo Unavailable Unavailable Source Comments PROHIBITION ON REDISCLOSURE: In the event these records contain information protected by 42 CFR Part 2, (i.e., would identify the patient as a substance abuser and was obtained by a federally assisted substance abuse program to diagnose, refer for treatment, or treat the patient for substance abuse), please be advised of the following: This information has been disclosed to you from records protected by Federal confidentiality rules (42 CFR part 2). The Federal rules prohibit you from making any further disclosure of this information unless further disclosure is expressly permitted by the written consent of the person to whom it pertains or as otherwise permitted by 42 CFR part 2. A general authorization for the release of medical or other information is NOT sufficient for this purpose. The Federal rules restrict any use of this information to criminally investigate or prosecute any alcohol or drug abuse patient. [employer] ([employer]) Allergies Active Allergy Reactions Criticality Noted Date Comments Amoxicillin 12/28/2022 Mild diarrhea Atorvastatin 12/28/2022 Joint pain Clarithromycin 01/07/2023 Clavulanic Acid 12/28/2022 diarrhea Hydrocodone 12/28/2022 Bad reaction Hydrocodone-Acetaminophe n Shortness of Breath High 08/18/2013 Problems breathing Indomethacin 01/07/2023 Lansoprazole 01/07/2023 Leflunomide Rash 02/10/2016 RASH Morphine Sulfate Nausea and Vomiting Medium 01/07/2023 Pravastatin 12/28/2022 rash Tetracycline 12/28/2022 swelling Unclassified Drug Nausea and Vomiting 03/06/2013 Other reaction(s): Other (See Comments) IV dyes all extremtites cold Venom-Honey Bee Shortness of Breath High 02/09/2011 Medications * PLEASE NOTE: Medications may not be up to date as of this document. Always verify current medications with the patient. Medication Sig Dispensed Refills Start Date End Date Status aspirin 81 mg Oral Tablet, Delayed Release (E.C.) Take 1 Tablet by mouth daily. Active spironolactone (ALDACTONE) 25 mg Oral Tablet Take 1 Tablet by mouth daily. Active escitalopram (LEXAPRO) 20 mg Oral Tablet Take 1 Tablet by mouth daily. Active tiotropium bromide (SPIRIVA RESPIMAT) 2.5 mcg/actuation Inhalation Mist INHALE 2 PUFFS BY MOUTH EVERY DAY FOR BREATHING 05/12/2022 Active choline fenofibrate (TRILIPIX) 135 mg Oral Capsule, Delayed Release(E.C.) Take 1 Capsule by mouth daily. Active cholecalciferol (VITAMIN D-3) 25 mcg (1,000 unit) Oral Tablet Take 1 Tablet by mouth daily. Active nystatin (MYCOSTATIN) 100,000 unit/gram Topical Powder Apply to affected area twice a day. 15 g 02/07/2023 Active clopidogreL (PLAVIX) 75 mg Oral Tablet Take 1 Tablet by mouth daily. 30 Tablet 1 02/07/2023 Active metoprolol succinate XL (TOPROL-XL) 25 mg Oral Tablet Sustained Release 24HR Take 1 Tablet by mouth daily. 30 Tablet 3 02/07/2023 Active gabapentin (NEURONTIN) 100 mg Oral Capsule Take 1 Capsule by mouth at bedtime. 30 Capsule 02/07/2023 Active torsemide 60 mg Oral Tablet Take 60 mg by mouth twice a day at 6 am and 4 pm. 30 Tablet 3 02/07/2023 Active potassium chloride (KLOR-CON M20) 20 mEq Oral Tab Sust.Rel. Particle/Crystal Take 2 Tablets by mouth daily. 30 Tablet 3 02/07/2023 Active traZODone (DESYREL) 50 mg Oral Tablet Take 1 Tablet by mouth every evening. 30 Tablet 3 02/07/2023 Active magnesium oxide (MAG-OX) 400 mg Oral Tablet Take 1 Tablet by mouth daily. 30 Tablet 3 02/07/2023 Active Active Problems Problem Noted Date Diagnosed Date AMS (altered mental status) 01/21/2023 CKD (chronic kidney disease) stage 3, GFR 30-59 ml/min ([facility] ([facility] ([facility]) 01/09/2023 01/08/23 TransCatheter Aortic Valve Replacement (Rcopj-xz-Rxgvx, 26 Medtronic Evolut Pro, via the Left Transfemoral Approach) EF 35% 01/08/2023 Personal history of transien t ischemic attack (TIA), and cerebral infarction without residual deficits 01/07/2023 Vitreous degeneration, right eye 12/29/2022 Thrombocytopenia, unspecified ([facility] ([facility] ([facility]) 12/29/2022 Sensorineural hearing loss, bilateral 12/29/2022 Psoriasis with arthropathy ([facility]) ([facility]) ( [facility]) 12/29/2022 Arthropathic psoriasis, unsp ecified ([facility]) ([facility]) ([facility]) 12/29/2022 Posttraumatic stress disorder 12/29/2022 Postsurgical aortocoronary bypass status 023 Patient under care of multiple providers 023 Overview (12/29/2022): Apr 21, 2015 Entered By: MARY ELMORE Comment: Dr. Hernandez PCP [phone] 2014 Entered By: MARY ELMORE Comment: Dr. Singh rheum - [phone] 2014 Entered By: MARY ELMORE Comment: Dr. Barragan - ortho [facility] 2014 Entered By: MARY ELMORE Comment: Dr. Miranda - cardio - [facility] 2014 Entered By: MARY ELMORE Comment: Dr. Sanchez pul [phone] 2014 Entered By: MARY ELMORE Comment: [facility] [phone] Palpitations 12/29/2022 Other ill-defined and unknow n causes of morbidity and mortality 12/29/2022 Pain in right shoulder 12/29/2022 Obesity 12/29/2022 Obstructive sleep apnea syndrome in adult 2022 Mitral and aortic valve disease 12/29/2022 Mild intermittent asthma 12/29/2022 Encounter for other procedur es for purposes other than remedying health state 12/29/2022 Encounter for immunization 12/29/2022 Depressive disorder 12/29/2022 Encounter for screening for eye and ear disorder s 12/29/2022 Contact dermatitis and other eczema 12/29/2022 Chronic rhinitis 12/29/2022 Hypertension 12/28/2022 Hyperlipidemia 12/28/2022 Coronary artery disease 12/28/2022 Diabetes mellitus ([facility] ([facility] ([facility]) 05/22/2019 Overview (01/07/2023): Last Assessment & Plan: A relatively new diagnosis for him. On metformin. A1c's reportedly <7%. Osteoarthritis of both knees 10/08/2018 Bradycardia 02/21/2018 Overview (01/07/2023): Last Assessment & Plan: Asymptomatic. Not on bblocker. Continue to monitor. Nonrheumatic aortic (valve) stenosis 08/19/2013 Overview (01/07/2023): Aortic valve area 1.1 cm??; s/p AVR in 2012 Last Assessment & Plan: S/p tissue AVR. Doing well. Continue with antibiotic prophylaxis prior to dental work. Will get repeat echocardiogram at next visit. Subarachnoid hemorrhage ([facility] ([facility] ([facility]) 04/22/2012 Overview (01/07/2023): 2007 Sleep apnea 04/22/2012 Overview (01/07/2023): Last Assessment & Plan: Continues with the OLIVIER mask. S/P prosthetic total arthroplasty of the hip Pancreatitis 04/22/2012 Overview (01/07/2023): 11/05 Possible gallstone pancreatitis. GERD (gastroesophageal reflux disease) 2 Former smoker 04/22/2012 Fatty liver 04/22/2012 Diverticulitis 04/22/2012 Overview (01/07/2023): 2004, 2005 S/p surgery Cholelithiasis 04/22/2012 Overview (01/07/2023): USG 11/05 Abdominal panniculus 04/22/2012 Overview (01/07/2023): S/p panniculectomy Psoriasis 05/05/2011 Cerebellar stroke syndrome 01/22/2011 Resolved Problems Problem Noted Date Diagnosed Date Resolved Date FILIBERTO (acute kidney injury) (C MS/HCC) (CMS-HCC) (CMS/HCC) 01/09/2023 01/19/2023 Pulmonary edema 01/09/2023 01/19/2023 Cardiogenic shock (CMS/HCC) (CMS-HCC) (CMS/HCC) 01/08/2023 01/19/2023 Acute on chronic HFrEF (hear t failure with reduced ejection fraction) (CMS/HCC) (CMS-HCC) (CMS/HCC) 01/08/2023 01/19/2023 NSTEMI (non-ST elevated myoc ardial infarction) (CMS/HCC) (CMS-HCC) (CMS/HCC) 12/28/2022 01/19/2023 Acute coronary syndrome (CMS /HCC) (CMS-HCC) (CMS/HCC) 12/28/2022 01/08/2023 Shock (CMS/HCC) (CMS-HCC) (CMS/HCC) 12/28/2022 01/08/2023 Immunizations Name Administration Dates Next Due COVID-19 Vaccine, Unspecified 02/09/2022 ,07/28/2021,12/17/2020,11/18 Influenza Vaccine, Inactivat ed (H1N1), Intramuscular 07/09/2019,07/24/2018,07/24/2017,06/24 Influenza Vaccine, Quadrival ent, Adjuvanted, Intramuscular 07/07/2021 Influenza, Unspecified Formulation 06/24,06/24/2014,06/24/2013,06/24,07/25/2011,11/02/2010,08/03/2009 ,06/24/2008,06/24/2007 PCV 13 Vaccine, Conjugated, Intramuscular 04/10/2016 Pneumococcal Conjugate, Unsp ecified Formulation 10/03/2011,10/24/2000 Td Vaccine, Adult Unspecified 10/03/2011, 012,06/04/2002 Tdap Vaccine, Intramuscular 07/07/2021, 2 Zoster Vaccine, Live, Subcutaneous 10/31/2012 Zoster Vaccine, Recombinant, Intramuscular 04/14/2022,02/08/2022 Social History Tobacco Use Types Packs/Day Years Used Date Smoking Tobacco: Former Cigarettes Smokeless Tobacco: Never Tobacco Cessation:Counseling Given: Not Answered B1300 Health Literacy Answer Date Recor ded How often do you need to hav e someone help you when you read instructions, pamphlets, or other written material from your doctor or pharmacy? Always 02/07/2023 PHQ-2 Answer Date Recorded PHQ Total Score 1 02/07/2023 PRAPARE - Transportation Answer Date Re corded In the past 12 months, has l ack of transportation kept you from medical appointments or from getting medications? No 01/22 In the past 12 months, has l ack of transportation kept you from meetings, work, or from getting things needed for daily living? No 02/07/2023 Adolescent Education Answer Date Record ed Getting School Help Needed Not on file 04/26 Sex and Gender Information Value Date Recorded Sex Assigned at Not on file Gender Identity Not on file Sexual Orientation Not on file Last Filed Vital Signs Vital Sign Reading Time Taken Comments Blood Pressure 114/51 02/07/2023 4:02 AM EDT Pulse 79 02/07/2023 4:02 AM EDT Temperature 36.7 ??C (98.1 ??F) 02/07/2023 4:02 AM ED T Respiratory Rate 16 02/07/2023 4:02 AM EDT Oxygen Saturation 95% 02/07/2023 4:02 AM EDT Inhaled Oxygen Concentration - - Weight 108.4 kg (238 lb 15.7 oz) 01/28/2023 9:29 PM EDT Height 175.3 cm (5' 9.02) 01/26/2023 5:56 PM ED T Body Mass Index 35.27 01/26/2023 5:56 PM EDT Plan of Treatment Health Maintenance Due Date Last Done Comments MEDICARE ANNUAL WELLNESS (AWV) 1945 HEPATITIS C SCREENING 1964 FALL RISK ASSESSMENT 2011 PNEUMOCOCCAL VACCINE (AGES 6 5+) (2 of 2 - PPSV23) 06/05/2016 04/10/2016, 10/03/2011, 10/24/2000 RSV IMMUNIZATION >=60 YEARS OR (1 - 1-dose 75+ series) 2021 DEPRESSION SCREENING & SURVEILLANCE 02/08/2024 02/07/2023 INFLUENZA VACCINE 04/24/2024 07/16/2023, , 07/09/2019, Additional history exists COVID-19 VACCINE (2023-2 5 season) 2024 02/09/2022, 07/28/2021, 12/17/2020, Additional history exists ZOSTER (SHINGRIX) VACCINES Completed 04/14, 02/08/2022, 10/31/2012 Medical Devices Implanted Type Area Assistant Activities Director Device Identifier Shelf Expiration Date Model / Serial / Lot Rv Lead Biotronik Solia S 60-01/12/2023 Implanted:Qty : 1 on 01/12/2023 by Lilibeth Stanford MD Lead Right: Ventricle Biotronik Inc SOLIA S 60 / [id number] / Lv Lead Biotronik Sentus Pro Mri Otw Qp L-85/49-2022 Implanted:Qty : 1 on 01/12/2023 by Lilibeth Stanford MD Lead Left: Ventricle Biotronik Inc SENTUS PROMRI OTW QP L-85/49 / [id number] / A Lead Biotronik Solia S 53-01/12/2023 Implanted:Qty : 1 on 01/12/2023 by Lilibeth Stanford MD Lead Right: Atrium Biotronik Inc SOLIA S 53 / [id number] / Biotronik Edora 8 Hf-T Qp-01/12/2023 Implanted:Qty : 1 on 01/12/2023 by Lilibeth Stanford MD Pacemaker Left: Chest Biotronik Inc EDORA 8 HF-T QP / [id number] / Stent Synergy Xd Mr [id number] - [id number] Implanted:Qty : 1 on 01/08/2023 by Timothy Monroe MD at [facility] Left: Coronary [employer] 07/13/2023 [id number] / / [id number] Valve Aortic Tc Evolut Ksr36ia - [id number] - [id number] Implanted:Qty : 1 on 01/08/2023 by Tania Hartley MD at [facility] Left: Aortic Valve Medtronic Vascular [id number]-[id number] 11/18/2024 EVOLUTPRO -26- / [id number] / Description:Implant verified by surgeon prior to opening to sterile field Advance Directives * Full Code (Latest Code Status on File) Date Activated Date Inactivated Comments 01/26/2023 11:55 AM 02/07/2023 3:35 PM * Full Code Date Activated Date Inactivated Comments 01/21/2023 3:00 PM 01/26/2023 11:55 AM * Full Code Date Activated Date Inactivated Comments 01/19/2023 2:51 PM 01/21/2023 1:13 PM * Full Code Date Activated Date Inactivated Comments 12/28/2022 1:48 PM 01/19/2023 2:51 PM Care Teams Protection Officer Relationship Specialty [place] [address] [place] [address] PCP - General Cardiology 12/29/22 Nela Trejo [address] [place] [address] 01/02/23 Additional Source Comments PROHIBITION ON REDISCLOSURE: In the event these records contain information protected by 42 CFR Part 2, (i.e., would identify the patient as a substance abuser and was obtained by a federally assisted substance abuse program to diagnose, refer for treatment, or treat the patient for substance abuse), please be advised of the following: This information has been disclosed to you from records protected by Federal confidentiality rules (42 CFR part 2). The Federal rules prohibit you from making any further disclosure of this information unless further disclosure is expressly permitted by the written consent of the person to whom it pertains or as otherwise permitted by 42 CFR part 2. A general authorization for the release of medical or other information is NOT sufficient for this purpose. The Federal rules restrict any use of this information to criminally investigate or prosecute any alcohol or drug abuse patient. [facility] (a.k.a. [facility])
--- OUTSIDE RECORDS SUMMARY | 2024-09-23 14:15 | XMS_ITS | Encounter Summary ---
Author Organization [facility] [employer] [facility]) Address [address] [place] [address] Care Team Providers Care Leather Heel Breaster Name Role Phone Williams Yip MD Primary Care Provider [phone] Nela Trejo Unavailable Unavailable Encounter Details Date Type Department Care Team (Late st Contact Info) Description 02/12/2023 Patient Outreach Access [facility] Care Management [address] [phone] Monique Chow RN [address] [place] [address] [facility] Social History Tobacco Use Types Packs/Day Years Used Date Smoking Tobacco: Former Cigarettes Smokeless Tobacco: Never B1300 Health Literacy Answer Date Recor ded [...] things needed for daily living? No 02/07/2023 Sex and Gender Information Value Date Recorded Sex Assigned at Not on file Gender Identity Not on file Sexual Orientation Not on file documented as of this encounter Functional Status Functional Status Response Date of Assess ment Are you deaf or do you have serious difficulty h earing? Yes 01/26/2023 Are you blind or do you have serious difficulty seeing, even when wearing glasses? No 01/26/2023 Do you have serious difficul ty walking or climbing stairs? (5 years old or older) No 01/26/2023 Do you have difficulty dress ing or bathing? (5 years old or older) No 01/26/2023 Because of a physical, menta l, or emotional condition, do you have difficulty doing errands alone such as visiting a doctor's office or shopping? (15 years old or older) No 01/26/2023 Cognitive Status Response Date of Assessm ent Because of a physical, menta l, or emotional condition, do you have serious difficulty concentrating, remembering, or making decisions? (5 years old or older) No 01/26/2023 documented as of this encounter Progress Notes * Monique Chow RN - 02/12/2023 2:09 PM EDT I got a voicemail from Courtanet[employer] Sayah asking for a return call. His number is [phone]. I called him back and he stated he was able to get the records he needs and for now doesnot need my assistance. States pt has a follow up with his pcp and they are working now to get him home services in place. No answer in effort to reach him today for post hospital follow up. I left a message with my name, number, and a request for a call back. No further TCC intervention indicated as pt resides out of TCC service area. Monique Chow RN Nurse Clay Structure Builder And Servicer-Transitional Care [facility] Work #[phone] [email or web address] documented in this encounter Plan of Treatment Not on file documented as of this encounter Visit Diagnoses Not on filedocumented in this encounter Additional Health Concerns Assessment Noted Time PHQ-9 Depression Total Score: 1 02/08/20 23 10:56 AM EDT documented as of this encounter Care Teams Leather Heel Breaster Relationship Specialty Start Date End Date Williams Yip [facility] [address] [facility] [place] [address] PCP - General Cardiology 12/29/22 Nela Trejo [address] [place] [address] 01/02/23 documented as of this encounter Additional Source Comments PROHIBITION ON REDISCLOSURE: In [...] prosecute any alcohol or drug abuse patient. [employer] [facility])
--- OUTSIDE RECORDS SUMMARY | 2024-09-23 14:15 | XMS_ITS | Encounter Summary ---
Author Organization [facility] [email or web address] (a.k[employer]a. [facility]) Address [address] [place] [address] Care Team Providers Care Cma Name Role Phone Williams Yip MD Primary Care Provider [phone] Nela Trejo Unavailable Unavailable Encounter Details Date Type Department Care Team (Late st Contact Info) Description 02/08/2023 Patient Outreach Access [facility] Care Management [address] [phone] Monique Chow RN [address] [place] [address] TC assigned/routed Social History Tobacco Use Types Packs/Day Years [...] Progress Notes * Monique Chow RN - 02/08/2023 3:37 PM EDT Final acute chart review D/c'd home 02/07/23. Resides outside of [facility] area. Monique Chow RN Nurse Transportation Sales Consultant-Transitional Care [facility] Work #[phone] [email or web address] documented in this encounter Plan of Treatment Not on file documented as of this encounter Visit Diagnoses Not on filedocumented in this encounter Additional Health Concerns Assessment Noted Time PHQ-9 Depression Total Score: 1 02/08/20 23 10:56 AM EDT documented as of this encounter Care Teams Cma Relationship Specialty Start Date End Date Williams Yip MD [address] [place] [address] PCP - General Cardiology 12/29/22 Nela Trejo [address] [place] [address] 01/02/23 documented as of this encounter Additional [...] prosecute any alcohol or drug abuse patient. [facility] [email or web address] (a.k[employer]a. [facility])
--- OUTSIDE RECORDS SUMMARY | 2024-09-23 14:15 | XMS_ITS | Encounter Summary ---
Author Organization [facility] [employer] (a.k[employer]a. [facility]) Address [address] [place] [address] Care Team Providers Care Disbursement Clerk Name Role Phone Williams Yip MD Primary Care Provider [phone] Nela Trejo Unavailable Unavailable Encounter Details Date Type Department Care Team (Late st Contact Info) Description 02/08/2023 Patient Outreach Access [facility] Care Management [address] [phone] Lesvia Radford, RN [address] [place] [address] Care Coordination Social History Tobacco Use Types Packs/Day Years [...] as of this encounter Progress Notes * Lesvia Radford RN - 02/08/2023 9:36 AM EDT Telehealth referral rec'd - Pt Not qualified for services - pt lives out of coverage area - out of state Lesvia Radford RN Clinical Decorative [employer] Cutter [facility] [phone] cell documented in this encounter Plan of Treatment Not on file documented as of this encounter Visit Diagnoses Not on filedocumented in this encounter Additional Health Concerns Assessment Noted Time PHQ-9 Depression Total Score: 1 02/08/20 10:56 AM EDT documented as of this encounter Care Teams Disbursement Clerk Relationship Specialty Start Date End Date Williams Yip MD [address] [place] [address] PCP - General Cardiology 12/29/22 Nela Trejo [address] [place] [address] 01/02/23 documented as of this encounter Additional [...] prosecute any alcohol or drug abuse patient. [facility] [employer] (a[employer]a. [facility] [employer]
--- OUTSIDE RECORDS SUMMARY | 2024-09-23 14:15 | XMS_ITS | Encounter Summary ---
Author Organization [employer] Address [address] [place] [address] Care Team Providers Care Operator Prefinish Name Role Phone Williams Yip MD Primary Care Provider [phone] Nela Trejo Unavailable Unavailable Encounter Details Date Type Department Care Team (Late st Contact Info) Description 03/08/2023 Miscellaneous [facility] [place] [facility] Physicians [address] [place] [address] Rajani Elizondo Social History Tobacco Use Types Packs/Day Years [...] as of this encounter Progress Notes * Rajani Elizondo - 03/08/2023 11:20 AM EDT Pt has been released from [facility] remote monitoring and will now be followed by [facility] in [facility]. Electronically signed by Rajani Elizondo 03/08/2023 11:21 AM documented in this encounter Plan of Treatment Not on file documented as of this encounter Visit Diagnoses Not on filedocumented in this encounter Additional Health Concerns Assessment Noted Time PHQ-9 Depression Total Score: 1 02/08/20 10:56 AM EDT documented as of this encounter Care Teams Operator Prefinish Relationship Specialty Start Date End Date Williams Yip MD [address] [place] [address] PCP - General Cardiology 12/29/22 Nela Trejo [address] [place] [address] 01/02/23 documented as of this encounter Additional [...] prosecute any alcohol or drug abuse patient. [facility] [employer] (a.k[employer]a. [facility])
--- OUTSIDE RECORDS SUMMARY | 2024-09-23 14:15 | XMS_ITS | Encounter Summary ---
Author Organization [facility] [employer] ([facility]. [facility]) Address [address] [place] [address] Care Team Providers Care Brewery Worker Name Role Phone Williams Yip MD Primary Care Provider [phone] Nela Trejo Unavailable Unavailable Encounter Details Date Type Department Care Team (Late st Contact Info) Description 02/09/2023 Patient Outreach Access [facility] Care Management [address] [place] [phone] Monique Chow RN [address] [place] [phone] TC Home, Follow up hospital discharge Social History Tobacco Use Types Packs/Day Years [...] Progress Notes * Monique Chow RN - 02/09/2023 11:58 AM EDT No answer today for post hospital follow up. I left a message with my name, number, and a request for a call back. I will reach out to him on Sunday. Monique Chow RN Nurse Intern Architect-Transitional Care [facility] Work #[phone] [email or web address] documented in this encounter Plan of Treatment Not on file documented as of this encounter Visit Diagnoses Not on filedocumented in this encounter Additional Health Concerns Assessment Noted Time PHQ-9 Depression Total Score: 1 02/08/20 10:56 AM EDT documented as of this encounter Care Teams Brewery Worker Relationship Specialty Start Date End Date Williams Yip MD [address] [place] [address] PCP - General Cardiology 12/29/22 Nela Trejo [address] [place] [address] 01/02/23 documented as of this encounter Additional [...] prosecute any alcohol or drug abuse patient. [facility] [employer] (a[facility]a. [facility])
--- OUTSIDE RECORDS SUMMARY | 2024-09-23 14:16 | XMS_ITS | Encounter Summary ---
Author Organization [facility] (a.k[facility]a. [facility]) Address [address] [place] [address] Care Team Providers Care Equipment Lead Name Role Phone Williams Yip MD Primary Care Provider [phone] Nela Trejo Unavailable Unavailable Reason for Visit * Inpatient Auth/Cert (Routine) Specialty Diagnoses / Procedures Referred By Contac t Referred To Contact Diagnoses CARDIAC Referral ID Status Reason Start Date Expiration Date Visits Re quested Visits Authorized [id number] 1 1 Encounter Details Date Type Department Care Team (Latest Contact Info) Description 01/19/2023 4:20 PM EDT - 01/21/2023 1:07 PM EDT Hospital Encounter [facility] - Rehab Medicine [address] [facility] [address] [place] [address] Beverly Nettles MD [address] [place] [address] Discharge Disposition: Discharged/transd to another short-term general hosp for inpatient car* Social History Tobacco Use Types Packs/Day Years Used Date Smoking Tobacco: Former Cigarettes Smokeless Tobacco: Never Tobacco Cessation:Counseling Given: Not Answered PRAPARE - Transportation Answer Date Re corded In the past 12 months, has l ack of transportation kept you from medical appointments or from getting medications? No 12/24 In the past 12 months, has l ack of transportation kept you from meetings, work, or from getting things needed for daily living? No 01/20/2023 Sex and Gender Information Value Date Recorded Sex Assigned at Not on file Gender Identity Not on file Sexual Orientation Not on file documented as of this encounter Last Filed Vital Signs Vital Sign Reading Time Taken Comments Blood Pressure 99/51 01/21/2023 9:07 AM EDT Pulse 73 01/21/2023 9:07 AM EDT Temperature 36.8 ??C (98.2 ??F) 01/21/2023 4:00 AM ED T Respiratory Rate 18 01/21/2023 4:00 AM EDT Oxygen Saturation 98% 01/21/2023 4:00 AM EDT Inhaled Oxygen Concentration - - Weight 114.8 kg (253 lb 1.4 oz) 01/18/2023 1:00 PM EDT Height 175.3 cm (5' 9.02) 01/18/2023 1:00 PM ED T Body Mass Index 37.36 01/18/2023 1:00 PM EDT documented in this encounter Functional Status Functional Status Response Date of Assess ment Are you deaf or do you have serious difficulty h earing? Yes 01/20/2023 Are you blind or do you have serious difficulty seeing, even when wearing glasses? No 01/20/2023 Do you have serious difficul ty walking or climbing stairs? (5 years old or older) Yes 01/20/2023 Do you have difficulty dress ing or bathing? (5 years old or older) Yes 01/20/2023 Because of a physical, menta l, or emotional condition, do you have difficulty doing errands alone such as visiting a doctor's office or shopping? (15 years old or older) Yes 01/20/2023 Cognitive Status Response Date of Assessm ent Because of a physical, menta l, or emotional condition, do you have serious difficulty concentrating, remembering, or making decisions? (5 years old or older) Yes 01/20/2023 documented as of this encounter Discharge Summaries * Anais Mcgovern OTR/Jessica - 01/24/2023 12:53 PM EDT OCCUPATIONAL THERAPY DISCHARGE SUMMARY-REHAB [facility] Discharge Date from OT: 01/24/23 Patient Name:Raghu Rosenthal Age: 77yrs : 1945 Sex: Male Attending Provider: No att. providers found Rehab Admit Date: 01/19/2023 Precautions: Fall and pacemaker Functional Status: Functional Activity Initial Status Discharge Status Feeding Level of Assist: Set up Reason for Assist:open containers Equipment/Technique: None Position: upright in bed Not assessed, patient RTA. Grooming Level of Assist: Not Assessed Reason for Assist:Not Assessed Equipment/Technique: Not Assessed Position:Not Assessed Not assessed, patient RTA. Upper Body Dressing Level of Assist: Minimal assist Reason for Assist:orientation to shirt, confusion Equipment/Technique: no assistive device Position: sitting edge of bed Not assessed, patient RTA. Lower Body Dressing Level of Assist: Total assist Reason for Assist:impaired standing balance, confusion, diaper Equipment/Technique: no assistive device Position: standing Not assessed, patient RTA. Bathing Upper Body Level of Assist: Minimal assist Lower Body Level of Assist: Maximal assist Reason for Assist:thoroughness, difficulty following commands, confusion Equipment/Technique: no assistive device Position: edge of bed Not assessed, patient RTA. Toileting Level of Assist: Total assist Reason for Assist:confusion, impaired balance Equipment/Technique: no assistive device Position: sitting, standing Not assessed, patient RTA. Toilet Transfer Level of Assist: Contact guard Reason for Assist:safety and balance, cues for device management Assistive Device: rolling walker, bedside commode Not assessed, patient RTA. Shower/Tub Transfer Level of Assist: Not Assessed Reason for Assist:Not Assessed Type: Not Assessed Equipment/Technique: Not Assessed Not assessed, patient RTA. 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 Rosenthal will get ready for the day with supervision and AE/DME as needed while adhering to precautions. NOT MET pt RTA OT GROUP HOME GOAL 2: Mr. Rosenthal will complete bathroom transfers as in home setup (toilet, shower) with supervision and LRAD while adhering to precautions. NOT MET pt RTA OT GROUP HOME GOAL 3: Mr. Rosenthal will complete a simple IADL task with supervision while adhering to precautions. NOT MET pt RTA Patient's Functional Limitations: Impaired strength, impaired cognition, impaired endurance, impaired standing balance/tolerance Patient/Caregiver Education: N/A patient unable to participate in tx session during his time in rehab. Disposition: RTA Discharge Plan/Recommendations: Defer to next level of care Plan for Transition of Care: Defer to next level of care JACK Haile/Jessica * Marlon Van, DO - 01/21/2023 8:52 AM EDT [facility] Department of Physical Medicine and Rehabilitation Rehab MD Discharge Summary Patient Name: Raghu Rosenthal Date of Admission: 01/19/2023 [facility] #: [id number] Room #: R420/R420A : 1945 Referring Physician: Tania Hartley MD PCP: Williams Yip MD Date of Discharge: 01/21/23 RTA for acute encephalopathy and stroke rule out Patient with worsening mental status during his short rehab stay. On 01/20, patient was noted to have new slurred speech, slight right tongue deviation, and right-sided weakness. CT head was obtained,which showed multiple old infarcts. Stroke neurology recommended MRI brain, which is pending. On 01/21, patient with worsening agitation and decline in mental status. Yesterday, he was A&O x3, wher eas today he is A&O x0 and not following commands, which is a change from his prior exam. Final Diagnoses: Adult Impairment Code: 09 - Cardiac Active Hospital Problems Diagnosis Date Noted CKD (chronic kidney disease) stage 3, GFR 30-59 ml/min ([facility]) 01/09/2023 01/08/23 TransCatheter Aortic Valve Replacement ([id number]-ac-Rexjt, 26 Medtronic Evolut Pro, via the Left Transfemoral Approach) EF 35% 01/08/2023 Personal history of transient ischemic attack (TIA), and cerebral infarction without residual deficits 01/07/2023 Vitreous degeneration, right eye 12/29/2022 Sensorineural hearing loss, bilateral 12/29/2022 Psoriasis with arthropathy ([facility]) 12/29/2022 Posttraumatic stress disorder 12/29/2022 Pain in right shoulder 12/29/2022 Obesity 12/29/2022 Obstructive sleep apnea syndrome in adult 12/29/2022 Hypertension 12/28/2022 Hyperlipidemia 12/28/2022 Coronary artery disease 12/28/2022 Diabetes mellitus ([facility]) 05/22/2019 Overview Note: Last Assessment & Plan: A relatively new diagnosis for him. On metformin. A1c's reportedly <7%. Nonrheumatic aortic (valve) stenosis 08/19/2013 Overview Note: Aortic valve area 1.1 cm??; s/p AVR in 2012 Last Assessment & Plan: S/p tissue AVR. Doing well. Continue with antibiotic prophylaxis prior to dental work. Will get repeat echocardiogram at next visit. 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 Follow Up Recommendations F/u MRI brain. If MRI shows acute stroke, notify stroke neurology. Per cardiology Continue ASA indefinetly and plavix for 6 months, pt is unable to tolerate statins, ct trilipix, will sent a priscription to OP pharmacy for evolocumab, patient has hx of cabg and will beneift from aggressive antilipid mgmt, pt can pick the medication from OP pharmacy and give it to the patient during rehab. Patient may need assistance in the outpatient setting for continued insurance approval. Valve in valve TAVR done 01/08/23. Given risk for CHB EP placed pacemaker, [facility] will continue to follow while patient is in IPR. Pt developed hematome over the pcaemaker site, EP evaluated, not concerning, continue placing sand bag over the hematoma for now. Due to fragile cardiac function, will advance GDMT very slowly, holding sherman/arb for now to ensure good tolerance to PT, [facility] will continue to follow and advance GDMT, ct toprol xl 25 mg qd ,aldactone 25 gm qd for now Follow-up Appointments: Future Appointments Date Time Provider Department Center 01/21/2023 9:00 AM Shirley Park, OTR/L [facility] 01/21/2023 11:00 AM Leigha Warren, PT [facility] 01/21/2023 3:00 PM Leigha Warren, PT [facility] 01/22/2023 7:30 AM Anais Mcgovern, OTR/L [facility] 01/22/2023 9:00 AM Caryl Barrera, SKILLED NURSING FACILITY COUNSELOR [facility] 01/22/2023 10:00 AM Anais Mcgovern, OTR/L [facility] 01/22/2023 1:00 PM Britney Carreon, LRT/DATA MANAGEMENT MANAGER [facility] 01/22/2023 3:30 PM Christen Shaikh, PT [facility] 01/31/2023 2:20 PM [facility] S[facility] 02/13/2023 12:15 PM [facility] 02/13/2023 12:30 PM [facility] GRAPH[facility] 2 [facility] 02/13/2023 1:15 PM [facility] XRAY01 [facility] 02/13/2023 1:30 PM Timothy Monroe MD [facility] 04/18/2023 1:00 PM Mathew Johnson RN [facility] HPI: On 01/19/[address] Lowe Raghu Rosenthal is a 77yrs old White Male with past medical history of CAD s/p CABG x2 in [place] 10 years ago, HTN, HLD, porcine AVR who initially presented to [facility] ED with complaints of SOB and midchest pressure. Patient lives in [place] with his , and is visiting [facility] for the next 3 months.He recently had a ziopatch placed by the [facility] on 12/27. Following this procedure he had worsening SOB associated with fatigue, malaise and generalized weakness. EMS was called and he was brought to [facility] ED. On arrival he was noted to be in mild respiratory distress and required bipap. WBC of 19. EKG without NUNO, troponin 1.197. CXR consistent with mild interstitial edema, and a small left pleural effusion. He was given nitro sublingual and morphine, and started on BID lovenox. He was admitted to the ICU at [facility]. He was started on empiric vanc, cefepime for possible infection. He was hypotensive requiring levophed with a differential of cardiogenic vs septic shock. He had a repeat EKG done on 12/28 with a new LBBB. His troponin trended as high as 39. Given concerns for acute coronary syndrome, he was transferred to [facility] for further management. [facility], patient is awake and alert. He is on low dose levophed. He is warm to the touchand appears well perfused. POCUS with EF visually estimated at 45%. He underwent a R/LHC 12/28/2022 showin. Severe three-vessel disease with patent VOGT to LAD, intermediate stenosis in mid RCA, 60% distal left main stenosis. Culprit for his NH appears to be an occluded SVG to ramus graft. There is flowin the ramus with proximal 70% stenosis. 2. He is also noted to have severely degenerated bioprosthetic aortic valve, invasive gradients reviewed severely stenotic with mean gradient over 40 mmHg. 3. Decompensated heart failure with preserved cardiac output. We had discontinued his Levophed on arrival to the [facility]. LVEDP 30mmHg Patient was treated for cardiogenic shock and noted to have severe bioprosthetic aortic valve stenosis with plans for valve in valve TAVR. Patient underwent TAVR on 01/[address] Shannon Davison. Patient was then [facility]. He was placed on pressure support for cardiogenic shock post procedure has been weaned only down to epinephrine. Patient was put on diuresis and changed overto Bumex drip which he maintains on at this time. He was able to be extubated on 01/08 and is now on6 L nasal cannula with weaning as tolerated. [facility] has been consulted for potential admission. Patient currently has no new complaints. Reports he and his are from [place] and were scheduleto return back at end of the month as they were down in [place] to get away from cold weather for multiple months this winter. Rehab Course: Raghu Rosenthal a 77yrs old Male admitted to [facility] on 12/28/2022 for NSTEMI and valve replacement. Hospital course complicated by respiratory distress. Patient was seen and examined and meets medical and functional criteria for admission to Acute Inpatient Rehabilitation at [facility] today PENDING COVID TEST. GEMS: Mobility Level 3- Standing activities with assist Impaired mobility and ADLs - impaired mobility and ADLs resulting from the above and multiple comorbidities, would benefit from rehab for the following: PT: balance, functional mobility, gait training, orthotics/prosthetic training, transfer training, improving strength, improving endurance, wheelchair mobility, education on assistive devices OT: ADLs, iADLs, adaptive equipment training, transfer training 01/08/23 TransCatheter Aortic Valve Replacement (Mpsfd-xn-Xxnwc, 26 Medtronic Evolut Pro, via the Left Transfemoral Approach) EF 35% (01/08/2023) Cardiogenic shock Acute on chronic HFrEF NSTEMI HLD -Therapies as above -[facility] following -Strict I's and O's, daily weights -Avoid nephrotoxins and hypotension -Pulm toileting, monitor O2, wean as tolerated -Precautions: No heavy lifting (>10lbs), pushing, or pulling until insertion site is healed for 4-6 weeks. Do not raise your arm above shoulder level or stretch for 4-6 weeks. No driving until two-week site check appointment. - OK to shower but do not soak surgical site in water for 3 days. - Due to fragile cardiac function, will advance GDMT very slowly, holding sherman/arb for now to ensuregood tolerance to PT, [facility]ology will continue to follow and advance GDMT, continue toprol xl 25 mg qd ,aldactone 25 gm qd for now - continue diuresis with Torsemide 60 mg BID, monitor for volume status - continue ASA indefinetly and plavix for 6 months, pt is unable to tolerate lipitor will resume home crestor, ct trilipix CKD stage 3 Baseline creatinine ~ 1.5-1.6 Recent Labs 01/17/23 1737 01/18/23 0457 01/19/23 0437 CREATININE 1.61* 1.54* 1.45* - avoid nephrotoxic agents and renally dose all required medicines - CTM Psoriatic arthropathy Chronic Right shoulder pain OA of bilateral knees - therapies as above - MMPT PTSD Depressive disorder - consult [employer] [facility] - continue lexapro Class 2 Obesity Body mass index is 37.36 kg/m??. - nutrition/teacher lip reading counseling - DM diet w/o sweets or juice - consider [facility] with Dr. Nettles ASthma OLIVIER - cipap while in IPR - continue spiriva and prn albuterol Hx of TIA Cerebellar stroke SAH - therapies as above - DAPT (30 days of plavix) and statin GERD - continue PPI Delirium Slurred speech RUE weakness -Delirium precautions 01/20: Ordered STAT CTH to r/o intracranial pathology. The patient was ready for discharge on 01/21/2023 and all medication changes and follow up instructions were discussed with the patient prior to departure. Allergies Allergen Reactions Hydrocodone-Acetaminophen Shortness of Breath Problems breathing Venom-Honey Bee Shortness of Breath Morphine Sulfate Nausea and Vomiting Amoxicillin Mild diarrhea Atorvastatin Joint pain Clarithromycin Clavulanic Acid diarrhea Hydrocodone Bad reaction Indomethacin Lansoprazole Leflunomide Rash RASH Pravachol [Pravastatin] rash Tetracycline swelling Unclassified Drug Nausea and Vomiting Other reaction(s): Other (See Comments) IV dyes all extremtites cold DISCHARGE MEDICATIONS: Medication List ASK your doctor about these medications Instructions aspirin 81 mg Tbec Take 1 Tablet by mouth daily. cetirizine 10 mg Tab Commonly known as: ZyrTEC 1 Tablet. chlorhexidine 0.12 % Mwsh Commonly known as: PERIDEX 15 mL by Swish & Spit route twice a day. cholecalciferol 25 mcg (1,000 unit) Tab Commonly known as: VITAMIN D-3 Take 1 Tablet by mouth daily. choline fenofibrate 135 mg Cpdr Commonly known as: TRILIPIX Take 1 Capsule by mouth daily. clopidogreL 75 mg Tab Commonly known as: PLAVIX Take 1 Tablet by mouth daily for 60 days. diclofenac sodium 1 % Gel gel Commonly known as: VOLTAREN APPLY 2 GRAMS TO UPPER AND 4 GRAMS TO LOWER EXTREMITIES TOPICALLY FOUR TIMES DAILY NEEDED FOR PAIN/INFLAMMATION. *DO NOT EXCEED 16 GRAMS DAILY TO ANY JOINT OF LOWER EXTREMITIES. DO NOT EXCEED 8 GRAMS DAILY TO ANY JOINT OF UPPER EXTREMITIES. DO NOT EXCEED TOTAL DOSE OF 32 GRAMS DAILY OVER ALL JOINTS. EPINEPHrine 0.3 mg/0.3 mL (1:1,000) Atin Commonly known as: EPIPEN Give 0.3 mL intramuscular. escitalopram 20 mg Tab Commonly known as: LEXAPRO Take 1 Tablet by mouth daily. evolocumab 140 mg/mL Pnij Commonly known as: REPATHA SURECLICK Give 140 mg subcutaneous every 2 weeks for 98 days. ferrous sulfate 325 mg (65 mg iron) Tbec Take 1 Tablet by mouth every 48 hours. fluticasone propionate 50 mcg/actuation Spsn Commonly known as: FLONASE by Nasal route. folic acid 1 mg Tab Commonly known as: FOLVITE Take 1 Tablet by mouth daily. gabapentin 100 mg Cap Commonly known as: NEURONTIN Take 1 Capsule by mouth at bedtime. melatonin 5 mg Tab Take 1 Tablet by mouth at bedtime. metoprolol succinate XL 25 mg Tb24 Commonly known as: TOPROL-XL Take 1 Tablet by mouth daily. oxyCODONE 5 mg Tab Commonly known as: ROXICODONE Take 1 Tablet by mouth every 4 hours as needed for Pain. polyethylene glycol 17 gram Pwpk Commonly known as: GLYCOLAX Take 1 Packet by mouth daily as needed for Constipation. raNITIdine 150 mg Tab Commonly known as: ZANTAC Take 1 Tablet by mouth twice a day. Sodium Fluoride 5000 Plus 1.1 % Crea Generic drug: Sodium Fluoride SMARTSIG:Topical spironolactone 25 mg Tab Commonly known as: ALDACTONE Take 1 Tablet by mouth daily. thiamine mononitrate 100 mg Tab Commonly known as: VITAMIN B-1 Take 1 Tablet by mouth daily. tiotropium bromide 2.5 mcg/actuation Mist Commonly known as: SPIRIVA RESPIMAT INHALE 2 PUFFS BY MOUTH EVERY DAY FOR BREATHING torsemide 60 mg Tab Take 60 mg by mouth twice a day. Pertinent Vitals and Exam on Discharge: Vitals: Temp: 36.8 ??C (98.2 ??F) BP: 94/50 Pulse: 72 Resp: 18 SpO2: 98 % Height: 175.3 cm Weight: 114.8 kg Physical Exam: General: Appears well developed and well nourished. Not diaphoretic. Not distressed. Cardiovascular: Normal rate, regular rhythm, intact distal pulses. Respiratory: Effort normal. Normal breath sounds. Gastrointestinal: Abdomen soft. No tenderness. Bowel sounds normal Musculoskeletal: No cyanosis or edema. Neurologic: Mental Status: Confusion. Intermittently follows commands. Alert and oriented x0 Cranial nerves: II: Visual carpio full. Pupils equal and reactive. III, IV, and : Extraocular movements intact. No nystagmus. V: Sensory branches intact VII: Face symmetric VIII: Hearing intact bilaterally IX, X, and XII: Slight R tongue deviation XI: Neck strength 5/5 to shoulder shrug on L, 3/5 on R. Sensory: Intact to light touch throughout. Gait: Not assessed. 4/5 strength LUE and LLE, 3/5 strength RUE and RLE. Integumentary: Warm and dry. No erythema or rashes noted. No pressure injury/ulcer Discharge Disposition and Recommendations: Disposition: RTA Diet Orders (From admission, onward) Ordered Nutrition Therapy Diet Effective Now Question Answer Comment Nutrition Therapy: Regular/House Fluid Consistency: All Level Liquids (Thin Liquids) - Level 0 01/19/23 1706 CC: Pt's Primary Doctor - Williams Yip MD Above providers Marlon Van, DO Physical Medicine and Rehabilitation Associated attestation - Mhedi Bowman MD - 01/21/2023 1:40 PM EDT PM&R ATTENDING NOTE I saw the patient with Dr. Van. I have discussed the case with the resident and read the resident's note and agree with the residents findings and plan of care. I have reviewed this chart including orders, diagnostics, and disposition. I am in agreement with the overall plan of care. Any additions/changes noted follow. Cause for encephalopathy/delirium unclear despite multiple imaging/tests performed. Patient is clinically deteriorating and needs a higher level of care. Will benefit from admission to medicine service for further w/u 42 minutes were personally spent by myself on this date of service managing this patients care including discharge management. Activities included all or some of the following: preparing to see the patient (e.g. review of tests), obtaining and/or reviewing a separately obtained history, performing a medically appropriate exam and/or evaluation, counseling and educating the patient/family/caregiver, ordering medications, tests, or procedures, referring and communicating with other health group care worker (when not separately reported), documenting clinical information in the electronic or other health record, independently interpreting results (not separately reported) and communicating results to the patient/family/caregiver, and/or care coordination (not separately reported). Note electronically signed by Mehdi Bowman MD Department of Physical Medicine and Rehabilitation 01/21/2023 1:38 PM documented in this encounter Medications at Time of Discharge Medication Sig Dispensed Refills Start Date End Date aspirin 81 mg Oral Tablet, Delayed Release (E.C.) Take 1 Tablet by mouth daily. escitalopram (LEXAPRO) 20 mg Oral Tablet Take 1 Tablet by mouth daily. spironolactone (ALDACTONE) 25 mg Oral Tablet Take 1 Tablet by mouth daily. tiotropium bromide (SPIRIVA RESPIMAT) 2.5 mcg/actuation Inhalation Mist INHALE 2 PUFFS BY MOUTH EVERY DAY FOR BREATHING 05/12/2022 clopidogreL (PLAVIX) 75 mg Oral Tablet Take 1 Tablet by mouth daily for 60 days. 30 Tablet 1 01/19/2023 01/30/2023 EPINEPHrine (EPIPEN) 0.3 mg/0.3 mL (1:1,000) Injection Auto-Injector Give 0.3 mL intramuscular. 01/30/2023 evolocumab (REPATHA SURECLICK) 140 mg/mL Subcutaneous Pen Injector Give 140 mg subcutaneous every 2 weeks for 98 days. 1 mL 6 01/19/2023 01/30/2023 ferrous sulfate 325 mg (65 mg iron) Oral Tablet, Delayed Release (E.C.) Take 1 Tablet by mouth every 48 hours. 90 Tablet 3 01/20/2023 01/30/2023 gabapentin (NEURONTIN) 100 mg Oral Capsule Take 1 Capsule by mouth at bedtime. 30 Capsule 01/19/2023 01/30/2023 hydrALAZINE (APRESOLINE) 10 mg Oral Tablet Take 1 Tablet by mouth every 4 hours as needed. 90 Tablet 3 01/21/2023 01/30/2023 melatonin 5 mg Oral Tablet Take 1 Tablet by mouth at bedtime. 30 Tablet 01/19/2023 01/30/2023 metoprolol succinate XL (TOPROL-XL) 25 mg Oral Tablet Sustained Release 24HR Take 1 Tablet by mouth daily. 30 Tablet 3 01/19/2023 01/30/2023 polyethylene glycol (GLYCOLAX) 17 gram Oral Powder in Packet Take 1 Packet by mouth daily as needed for Constipation. 10 Packet 3 01/19/2023 01/30/2023 potassium chloride (KLOR-CON M20) 20 mEq Oral Tab Sust.Rel. Particle/Crystal Take 2 Tablets by mouth daily. 30 Tablet 3 01/21/2023 01/30/2023 QUEtiapine (SEROquel) 50 mg Oral Tablet Take 1 Tablet by mouth every 8 hours as needed. 60 Tablet 3 01/21/2023 01/30/2023 sodium chloride 0.9 % Injection Syringe syringe 3 mL by Intravenous route every 8 hours. 0 01/21/2023 01/30/2023 torsemide 60 mg Oral Tablet Take 60 mg by mouth twice a day. 120 Tablet 3 01/19/2023 01/30/2023 traZODone (DESYREL) 50 mg Oral Tablet Take 1 Tablet by mouth every evening. 30 Tablet 3 01/21/2023 01/30/2023 documented as of this encounter Progress Notes * Garth Diggs PT - 02/07/2023 4:26 PM EDT Problem: Physical Therapy Goal: PT Daily Note Note: PHYSICAL THERAPY DAILY NOTE Patient Name: Raghu Rosenthal Date of :1945 Age: 77yrs Date: 02/07/2023 Session 1: Time In 1100 Time Out 1130 Precautions: Fall and Cardiac Physical Therapy Clothing Consultant Goals LTG Anticipated Completion: by discharge date. Current Physical Therapy Goals: Subjective: Pt agreed to treatment. Objective/Assessment: Pt encountered sitting in recliner with present. Note written after pt DC from [facility]. GT: ambulated 85 ft on flat surface with RW SBA in step through pattern. TA: Performed all aspects of bed mobility in standard bed at [facility]. Transferred chair<>WC and WC<>EOB with RW at [facility] stand pivot. Pt left sitting in recliner with call light and needs in reach, present. Plan: DC Garth Diggs PT * Leigha Warren PT - 01/21/2023 11:00 AM EDT Unable to evaluate patient for physical therapy evaluation. Pt returning to [facility] for further medical evaluation Leigha Warren PT, DPT * Shirley Park OTR/L - 01/21/2023 9:47 AM EDT Attempted to see pt at 0900 for 60 minute scheduled tx session. Pt agitated, unable to follow simple commands and told therapist to leave him alone. Pt's arrived later and he was able to recognize her voice and call her by name. Pt requires maximum verbal cueing to open eyes, JULIA Mcgovern in room at time as well. Per JULIA Mcgovern and Dr. Van's note, pt returning to acute for further medical work up. Will follow up to make up missed time if anything changes. Shirley Park OTR/L * Lenore Gresham RN - 01/21/2023 6:21 AM EDT Problem: Adult Inpatient Plan of Care Goal: Plan of Care Review Description: POC will be reviewed each shift by nurse. Outcome: Ongoing, Progressing Note: Shift summary: Patient alert and oriented x 1. Very confused and agitated. PRN meds given. Patient restlessness during this shift. Dr. Van notified and checked patient at bed side. Video monitoring D/C and sitter at bed side. VS stable. UOP adequate. No c/o pain. Am labs drawn. Hourly rounds completed, safety maintained. Problem: Fall Injury Risk Goal: Absence of Fall and Fall-Related Injury Description: Patient will remain free from falls and follow safety precautions during hospital stay. Outcome: Ongoing, Progressing Note: Pt will remain free from injury during shift. Bed low and locked, side rails up, bed alarm asneeded. Call green within reach,safety lighting and non- skid footwear when out of bed. Pt encouragedto call for assistance when getting out of bed. Gait belt and walker used for support. * Ritchie Henry MD - 01/20/2023 9:07 PM EDT U Nipple Maker Brief Note Ritchie Henry MD Nipple Maker PGY-5 Time: 9:07 PM Date: 01/20/23 -Called by primary team this AM due to concern for abdominal pulsation that is palpable in the LUQ and visible while sitting up in bed. There was concern for complication s/p TAVR -Recommended ultrasound which shows splenomegaly -Patient seen and examined, pulsation appears to occur during each heart beat, patient symptomatic. -Hemoglobin stable, low likelihood for complication post TAVR -If hemoglobin drops would order CT A/P, otherwise no further workup needed at this time Ritchie Henry MD Fellow, Cardiovascular Medicine Cortext for questions After hours: Please call [phone] * Laith Cesar RN - 01/20/2023 7:13 PM EDT End of Shift Summary Pertinent Events This Shift: Patient was reoriented to time place and person Nursing Concerns: Patient had a new IV line. Patient/Family Concerns: Patient is also confused in day time Mental Status: Patient is still confused but recognises family and follows instructions Pain Control: Patient on scheduled pain meds Mobility: Patient is Bed fast. Bed in lowest position. Call bells within reach. Bed alarms on. Patient on nonskid shoes * Laith Cesar RN - 01/20/2023 7:13 PM EDT .rn * Leyla Ho - 01/20/2023 1:55 PM EDT [facility] Case Management Assessment Patient Name: Raghu Rosenthal : 1945 Age: 77yrs MEG: [id number] Admit Date: 01/19/2023 Room: [facility] Attending Provider: Beverly Nettles,* Primary Care Provider: Willaims Yip MD Team: GRKriss Last Admission: 12/31/22 ED Chief Complaint: No chief complaint on file. Reason for Consult/Assessment: Routine Assessment There are no questions and answers to display. Principal Problem: <principal problem not specified> Advance Directives: Advance Directive/Healthcare Power of Saas Architect Advance Directive/Living Will: No, declined Health Care Power of Saas Architect: No, declined Source of Information: Self This patient's decision maker is: Self Family/Support system: Living Arrangements: Spouse/significant other Support Systems: Spouse/significant other Type of Residence: Private residence Support Name: Cathy Barclay Phone Number: [phone] Verbal Permission Given to Contact?: Yes Hvac Design Mechanical Engineer Services Is an fire hydrant operator needed/used?: No Need for family participation in patient care?: Yes SKILLED NURSING FACILITY COUNSELOR services/supplies/DME: Established Respiratory Supplies: CIPAP Machine Home Care Services: No Any history of, or current mental health diagnosis?: No Current Mental/Functional Status: Patient's mental status at this time is:: Alert and oriented Appearance: Appears stated age Attitude/Demeanor: Pleasant Affect: Appropriate Orientation: Fluctuating Orientation (Comment) (Per Rn and PT note, patient increased confusion andslurred speech). Is your home accessible given your current medical needs?: Yes One or more falls in the last year:: Yes Feels unsteady when walking:: Yes Worried about falling:: Yes Custody and guardianship issues/APS/CPS (including abuse/ neglect issues): None Payor source/ needs: Primary: Payor: MEDICARE / Plan: MEDICARE PART A & B / Product Type: Medicare / Secondary: [employer] Insight into what may contribute to a readmission: Treatment / Complication, Lack of Post-Acute Follow-up, High-Readmission Risk, Planned Readmission Anticipated Discharge Plan: Discharge Planning Assistance Needed: Yes Method of Obtaining Prescription Medications After Discharge: Medicare Part D Method of Obtaining Follow Up Care After Discharge: PCP Means of reaching the discharge destination:: Family/Friends Does the patient need discharge transport arranged?: No Insight into what may contribute to Readmission: Treatment / Complication, Lack of Post-Acute Follow-up, High-Readmission Risk, Planned Readmission How will this patient obtain prescription medications at discharge? Medicare Part D How will this patient obtain follow up care after discharge? PCP I have discussed the discharge plan with the patient/ family, who understand and agree. Discharge Planning and Psychosocial Summary: Assessment completed with: Chart review. Patient has increased confusion and slurred speech per chart review. Therapy hold. Stat CT ordered. Patient admitted from: [facility] Reason for Admission/PMH: TAVR Living Situation: Home with spouse Home Layout: [place] (2 story) vs. [place] (4th floor apt with elevator to enter) Baseline Cognition: A&Ox4 ADLs captain fire prevention bureau: Independent DME captain fire prevention bureau: None. Home Services captain fire prevention bureau: None. Usual Transportation: Self LNOK / Emergency contact: Cathy Rosenthal [phone] Support System / Caregiver Availability: 16/04 care provided by . PCP: Theodora Pharmacy: [facility] Payor Source: Medicare A&B, [place] Had RX coverage: Yes Need Medicaid appointment or Disability packet? No Education: TBD. Primary CM to follow up. Barriers/Additional Information: Medical acuity. Leyla Ho 01/20/2023 * Willis Soto RN - 01/20/2023 11:25 AM EDT STAT head CT is ordered. Called CT and they are aware of patient and order. Currently no time slot for patient and they will send for patient when able. * Anais Mcgovern OTR/L - 01/20/2023 11:00 AM EDT Received report from DARNELL Ahuja that patient is currently on medical hold per Dr. Van and Dr. Bowman. Missed 60 minutes OT. Will attempt to make up missed time in the rolling week as able. BOOGIE Haile * Leigha Warren PT - 01/20/2023 10:25 AM EDT Physical therapy consult received and appreciated. Pt noted to have increased confusion and slurredspeech. Therapist also noted pt had visible pulsation in abdomen. Charge nurse Hugh and Dr. Van informed. Vitals BP 104/57 HR 76 02 sats 99 present and provided some history before MD's entered room to assess patient. Pt was independent and driving before admission. They lived in 2 [address] home (in [place]. They were on vacation when pt was admitted to this hospital) and can set up needs on first floor if needed. Ptdid have some memory issues before admission ( described as normal memory issues one has with age). He needed help reading and understanding medical information/prescription medication. Per Dr. Van, PT to hold evaluation at this time pending testing. * Willis Soto RN - 01/20/2023 9:47 AM EDT Patient's is speaking to him on the phone and states that he sounds like he has slurred speech. This is my first time with him but he does sound a little slurred. His smile is crooked, unkown ifthis is baseline. Seems to have equal strength, Equal pupils, normal gaze. Currently he is able to state name, location, and reason for being here but does not know date. Night time he was very confused and thought he was 16yrs old [place] Dr Van notified and assessed patient. Patientwas noted to have several sedating meds last night. shift lab technician nurse states patient did not sleep at all. Patient states he did not wear his CPAP last night and notes that he feels like he got sleeplast night and rested. * Marlon Van, - 01/20/2023 9:10 AM EDT [facility] Physicians Department of Physical Medicine and Rehabilitation Rehab Physician Progress Note Raghu Rosenthal, 77yrs Male Admit Date: 01/19/2023 Today's Date: 01/20/2023 Drug Regimen Review Completed: Yes The following clinically significant medication issues were identified over the last 24 hours: As below Subjective/Interval Events: Today, patient was seen and examined with attending physician. Last night, patient had episode of restlessness and agitation. He received Seroquel 25 mg at 2 AM, and 5 mg of Zyprexa at 5 AM. This morning, he is resting in bed and intermittently confused, however he is alert and oriented x4. On review of records, he had history of sundowning while in the acute hospital. His is concerned that his speech is slurred today. On exam, patient is slightly weaker in the RUE and has slight R tongue deviation. Ordered STAT CTH to rule out acute intracranial process. Vital signs stable. Patient also has abdominal pulsation that is palpable in the LUQ and visible while sitting up in bed. Spoke with exhibits curator. He recommended abdominal US. Patient denies any AP. ROS is otherwise negative. Denies uncontrolled pain. NOTE: This note was prepared using Voxeet dictation software. Any transcriptional errors are unintentional. Objective: Vitals: Temp: 36.7 ??C (98 ??F) BP: (!) 115/49 Pulse: 73 Resp: 18 SpO2: 96 % Height:175.3 cm Weight: 114.8 kg Body mass index is 37.36 kg/m??. Physical Exam: General: Appears well developed and well nourished. Not diaphoretic. Not distressed. Cardiovascular: Normal rate, regular rhythm, intact distal pulses. Respiratory: Effort normal. Normal breath sounds. Gastrointestinal: Abdomen soft. No tenderness. Bowel sounds normal Musculoskeletal: No joint tenderness. No cyanosis or edema. Neurologic: Alert and oriented x4. Slurred speech. Slight R tongue deviation. Muscle strength testing: LUE: 5/5 RUE: 4/5, LLE: 4/5, RLE: 4/5. Skin: Warm and dry. No erythema or rashes noted. Labs: Recent Labs 01/20/23 0506 WBC 6.47 HGB 8.8* HCT 28.4* MCV 95.9 PLATELET 86* Recent Labs 01/17/23 1737 01/17/23 2053 01/18/23 0000 01/18/23 0457 01/18/23 0737 01/19/23 0437 01/19/23 0734 01/19/23 1738 01/20/23 0506 01/20/23 0659 SODIUM 131* -- -- 133* -- 133* -- -- 132* -- POTASSIUM 3.7 -- -- 3.5 -- 3.2* -- -- -- -- CHLORIDE 92* -- -- 94* -- 94* -- -- 95* -- BICARBONATE 28 -- -- 26 -- 26 -- -- 23 -- GLUCOSE 108* < > -- 110* < > 96 < > 119* 82 84 BUN 86* -- -- 82* -- 76* -- -- 68* -- CREATININE 1.61* -- -- 1.54* -- 1.45* -- -- 1.49* -- CALCIUM 9.5 -- -- 9.5 -- 9.0 -- -- 8.6 -- PHOSPHORUS -- -- -- 2.6 -- 2.6 -- -- 1.8* -- MAGNESIUM 1.7 -- 2.2 -- -- 1.7 -- -- 1.6 -- BILIRUBIN -- -- -- -- -- -- -- -- 1.5* -- PHOSPHATASE -- -- -- -- -- -- -- -- 43 -- TRANSAMINASE -- -- -- -- -- -- -- -- 22 -- PROTEIN -- -- -- -- -- -- -- -- 5.4* -- ALBUMIN -- -- -- -- -- -- -- -- 2.6* -- < > = values in this interval not displayed. Recent Labs 01/20/23 0659 01/19/23 1738 01/19/23 1156 GLUCOSE POCT 84 119* 112* Radiology reviewed No results found. Assessment/Plan: Raghu Rosenthal a 77yrs old Male admitted to [facility] on 12/28/2022 for NSTEMI and valve replacement. Hospital course complicated by respiratory distress. Patient was seen and examined and meets medical and functional criteria for admission to Acute Inpatient Rehabilitation at [facility] today PENDING COVID TEST. GEMS: Mobility Level 3- Standing activities with assist Impaired mobility and ADLs - impaired mobility and ADLs resulting from the above and multiple comorbidities, would benefit from rehab for the following: PT: balance, functional mobility, gait training, orthotics/prosthetic training, transfer training, improving strength, improving endurance, wheelchair mobility, education on assistive devices OT: ADLs, iADLs, adaptive equipment training, transfer training 01/08/23 TransCatheter Aortic Valve Replacement ([id number], 26 Medtronic Evolut Pro, via the Left Transfemoral Approach) EF 35% (01/08/2023) Cardiogenic shock Acute on chronic HFrEF NSTEMI HLD -Therapies as above -[facility] Cardiology following -Strict I's and O's, daily weights -Avoid nephrotoxins and hypotension -Pulm toileting, monitor O2, wean as tolerated -Precautions: No heavy lifting (>10lbs), pushing, or pulling until insertion site is healed for 4-6 weeks. Do not raise your arm above shoulder level or stretch for 4-6 weeks. No driving until two-week site check appointment. - OK to shower but do not soak surgical site in water for 3 days. - Due to fragile cardiac function, will advance GDMT very slowly, holding sherman/arb for now to ensuregood tolerance to PT, [facility] cardiology will continue to follow and advance GDMT, continue toprol xl 25 mg qd ,aldactone 25 gm qd for now - continue diuresis with Torsemide 60 mg BID, monitor for volume status - continue ASA indefinetly and plavix for 6 months, pt is unable to tolerate lipitor will resume home crestor, ct trilipix CKD stage 3 Baseline creatinine ~ 1.5-1.6 Recent Labs 01/17/23 1737 01/18/23 0457 01/19/23 0437 CREATININE 1.61* 1.54* 1.45* - avoid nephrotoxic agents and renally dose all required medicines - CTM Psoriatic arthropathy Chronic Right shoulder pain OA of bilateral knees - therapies as above - MMPT PTSD Depressive disorder - consult [employer]ERIAL HANDLING [employer]QU[employer] - continue lexapro Class 2 Obesity Body mass index is 37.36 kg/m??. - nutrition/teacher lip reading counseling - DM diet w/o sweets or juice - consider referral to [facility] with Dr. Nettles ASthma OLIVIER - cipap while in IPR - continue spiriva and prn albuterol Hx of TIA Cerebellar stroke SAH - therapies as above - DAPT (30 days of plavix) and statin GERD - continue PPI Delirium Slurred speech RUE weakness -Delirium precautions 01/20: Ordered STAT CTH to r/o intracranial pathology. DVT Prophylaxis: Lovenox 40 mg subq daily GI Prophylaxis: None required Follow up appointments: PCP cards aspirin, 81 mg, DAILY AT 0800 clopidogreL, 75 mg, DAILY escitalopram, 10 mg, QPM metoprolol succinate XL, 25 mg, DAILY sod phos di, mono-K phos mono, 2 Tablet, EVERY 4 hours sodium chloride, 3 mL, Q8HR spironolactone, 25 mg, DAILY tiotropium, 1 Capsule, RTDAILY torsemide, 60 mg, BID bisacodyL, 10 mg, DAILY-PRN dextrose, 15 g, PRN dextrose 50% in water, 25 mL, PRN dextrose 50% in water, 50 mL, PRN hydrALAZINE, 10 mg, [id number] OLANZapine, 5 mg, [id number] ondansetron ODT, 4 mg, [id number] QUEtiapine, 25 mg, [id number] traZODone, 50 mg, QHS-PRN Provider Electronic Signature: Marlon Van DO, 01/20/2023 Associated attestation - Mehdi Bowman MD - 01/20/2023 6:07 PM EDT PM&R ATTENDING NOTE I saw the patient with Dr. Van. I have discussed the case with the resident and read the resident's note and agree with the residents findings and plan of care. I have reviewed this chart including orders, diagnostics, and disposition. I am in agreement with the overall plan of care. Any additions/changes noted follow. CTH unremarkable for acute process. Will CTM, consider scheduling seroquel if agitation continues Note electronically signed by Mehdi Bowman MD Department of Physical Medicine and Rehabilitation 01/20/2023 6:05 PM * Anais Mcgovern OTR/Jessica - 01/20/2023 7:30 AM EDT OT ASSESSMENT--REHAB [facility] Date of Assessment: 01/20/2023 Time In: 629 / Time Out: 729 Patient Name:Raghu Rosenthal Age: 77yrs : 1945 Sex: Male Rehab Admit Date: 01/19/2023 Primary Diagnosis/Reason for Admission: TAVR 01/08/23 Patient History/Co-Morbidities: Per Dr. Lowe's H&P: Raghu Rosenthal is a 77yrs old White Male with past medical history of CAD s/p CABG x2 in [place] 10 years ago, HTN, HLD, porcine AVR who initially presented to [facility] ED with complaints of SOB and midchest pressure. Patient lives in [place] with his , and is visiting [facility] for the next 3 months. He recently had a ziopatch placed by the [facility] on 12/27. Following this procedure he had worsening SOB associated with fatigue, malaise and generalized weakness. EMSwas called and he was brought to [facility] ED. On arrival he was noted to be in mild respiratory distress and required bipap. WBC of 19. EKG without UNNO, troponin 1.197. CXR consistent with mild interstitial edema, and a small left pleural effusion. He was given nitro sublingual and morphine, and started on BID lovenox. He was admitted to the ICU at [facility]. He was started on empiric vanc, cefepime for possible infection. He was hypotensive requiring levophed with a differential of cardiogenic vs septic shock. He had a repeat EKG done on 12/28 with a new LBBB. His troponin trended as high as 39. Given concerns for acute coronary syndrome, he was transferred to [facility] for further management. On arrival to CICU, patient is awake and alert. He is on low dose levophed. He is warm to the touchand appears well perfused. POCUS with EF visually estimated at 45%. He underwent a R/LHC 12/28/2022 showin. Severe three-vessel disease with patent VOGT to LAD, intermediate stenosis in mid RCA, 60% distal left main stenosis. Culprit for his NH appears to be an occluded SVG to ramus graft. There is flowin the ramus with proximal 70% stenosis. 2. He is also noted to have severely degenerated bioprosthetic aortic valve, invasive gradients reviewed severely stenotic with mean gradient over 40 mmHg. 3. Decompensated heart failure with preserved cardiac output. We had discontinued his Levophed on arrival to the [facility]. LVEDP 30mmHg Patient was treated for cardiogenic shock and noted to have severe bioprosthetic aortic valve stenosis with plans for valve in valve TAVR. Patient underwent TAVR on 01/[address] Shannon Davison. Patient was then transferred to CICU for management. He was placed on pressure support for cardiogenic shock post procedure has been weaned only down to epinephrine. Patient was put on diuresis and changed overto Bumex drip which he maintains on at this time. He was able to be extubated on 01/08 and is now on6 L nasal cannula with weaning as tolerated. IPR has been consulted for potential admission. Precautions: Fall, Cardiac, and pacemaker (No heavy lifting (>10lbs), pushing, or pulling until insertion site is healed for 4-6 weeks. Do not raise your arm above shoulder level or stretch for 4-6 weeks) PATIENT AND/OR FAMILY INTERVIEW Subjective: do you know how big the biggest lobster is? Patient stated goal: unable to voice, confused Caregiver/Patient Concerns: unable to voice, confused Plan for Discharge: home with Prior to Hospitalization (information gathered from PT who spoke with Patient's , chart review d/t patient A&Ox2): Mobility Transfers: Independent Transfer Devices: None Walking/Ambulation: Independent Wheelchair mobility: Not applicable Stair negotiation: Independent Orthotic/Prosthetic: No. Eating: Independent Dressing: Independent Bathing: Independent Bathing equipment used: (unknown) Toileting: Unknown Domestic Chores: (unknown) Patient was responsible for following IADL's: unknown, patient A&Ox2-3 Bowel/Bladder Function: Bladder: Continent Bowel: Continent Sensory Hearing: Normal Vision: Functional with lenses Cognition Cognition: Needs assist for memory Communication Communication: Normal Vocational: Occupation: Retired Pre-hospital Vocational Status: Retired for age Pre-Hospital Living Environment: Home Setting: Two story home (able to live on first floor) Prehospital lives with: Spouse Exterior Home Access: elevator Bathroom Arrangement: unknown Transportation: unknown, patient A&Ox2-3 Vehicle: N/A Pre-Hospital Activity/Participation: Services Prior To Admission: None Activity Level Prior to Admission: lightly active, travelling at time of medical emergency Roles: Patient has the following hobbies/interests: unable to answer, patient A&Ox2-3 Patient???s Level of Education: Unable to answer, patient A&Ox2-3 Functional Communication: Verbal Pertinent Cultural/Spiritual Information Are there any spiritual/cultural beliefs the patient/family wishes for staff to consider prior to initiating or during evaluation/treatment? Patient unable to clearly identify Do you have questions related to sexuality or intimacy? Sexuality/Intimacy: No, not at this time CURRENT FUNCTIONAL ASSESSMENT Cardiopulmonary/Endurance: Vital Signs: Vital Signs: Supine: Heart rate: 74, Blood pressure: 91/51, O2 saturation: 93% Pain: Intensity (Adult): 0 (patient denies pain) Musculoskeletal Assessment: Upper Extremity Range of Motion: Able to perform gross functional tasks without noted limitation in ROM. Grossly WFL (given pacemaker precautions) Upper Extremity Strength: Upper extremity strength within functional limits for the following tasks: ADL and functional transfer Grossly 5/5 in BUE Upper Extremity Sensation: Unknown, patient A&Ox2-3 Muscle Tone: WNL in upper extremities Upper Extremity Impairments: No impairments noted Fine Motor Skills/Coordination: WFL based on clinical observation Motor Planning Observations: Impaired sequencing Skin Issues Noted: Yes pacemaker site covered with gauze and tegaderm, IV in RUE Balance: Sitting: Static sitting level of assist: Supervision Dynamic sitting level of assist: Contact guard Standing: Static standing level of assist: Contact guard Dynamic standing level of assist: Contact guard Mental Status/Communication/Psychosocial Behavior Method of Communication: Verbal Speech: Slurred, Inappropriate words, Word finding difficulties, and Rambling Orientation: Oriented to person, place, and situation (not consistent) Social Behavior Observations: During evaluation, patient exhibited the following characteristics: distracted/inattentive Cognition: Level of Alertness: During this session, patient was alert consistently.. Following Directions: Patient follows 1 step commands inconsistently with moderate cueing. Vision/Perception: Unable/not appropriate to assess due to: altered cognition Reading: Normally wears corrective lenses for daily use Writing: Dominant hand: right Self-Care Assessment: Feeding: Level of Assist: Set up Reason for Assist: open containers Adaptive Equipment/Alternative Methods Used: None Position: upright in bed Diet: Diet Orders (From admission, onward) Ordered Nutrition Therapy Diet Effective Now Question Answer Comment Nutrition Therapy: Regular/House Fluid Consistency: All Level Liquids (Thin Liquids) - Level 0 01/19/23 3186 Grooming: Unable to assess: patient fatigued, to assess in later session Dressing Upper Body: Level of Assist: Minimal assist Reason for Assist: orientation to shirt, confusion Adaptive Equipment/Alternative Method Used: no assistive device Position: sitting edge of bed Clothing Items Donned/Doffed: Hospital gown Additional Details: Not applicable. Dressing Lower Body: Level of Assist: Total assist Reason for Assist: impaired standing balance, confusion, diaper Adaptive Equipment/Alternative Methods Used: no assistive device Position: standing Clothing Items Donned/Doffed: diaper Additional Details: Socks: Level of assist: Total assist. Adaptive equipment/alternative method used: no assistive device. Position: in bed Bathing: Upper Body Bathing Level of Assist: Minimal assist Lower Body Bathing Level of Assist: Maximal assist Reason for Assist: thoroughness, difficulty following commands, confusion Adaptive Equipment/Alternative Methods Used: no assistive device Position: edge of bed Toileting: Level of Assist: Total assist Reason for Assist: confusion, impaired balance Assistive Device: no assistive device Position: sitting and standing Toilet Transfer: Level of Assist: Contact guard Reason for Assist: safety and balance, cues for device management Adaptive Equipment/Alternative Method Used:rolling walker and bedside commode Type of Transfer: stand step Shower/Tub Transfer: Unable to assess: safety concern Type of Transfer: N/A Mobility Assessment: Bed Mobility/Transitions: Rolling Right: Unable to assess due to patient does not perform. Rolling Left: Unable to assess due to patient does not perform. Supine to Sit: Unable to assess due to patient does not perform. Sit to Supine: Unable to assess due to patient does not perform. Sit to Stand: Performed from 22 inch high surface. Assist level: Contact guard Assistive Devices: rolling walker Reason for Assistance: adherance to precautions, balance, device management, and safety Stand to Sit: Assist Level: Contact guard Assistive Device: rolling walker Reason for Assistance : adherance to precautions, balance, device management, and safety Bed/chair transfers: N/A Functional Movement Observations: No abnormalities Splinting/Positioning Needs: No splinting/positioning needs identified Education/Equipment Provided: Role of OT, 3-hour therapy rule for IPR, daily schedule, fall and pacemaker precautions. See Patient Education Activity for education plan. ASSESSMENT: OT services are indicated. Impairments: Patient presents with impairment of the following functions: Mental functions including orientation, attention, memory, judgement, problem solving Cardiorespiratory functions including heart rate/rhythm, blood pressure, endurance Neuromusculoskeletal and movement functions including range of motion, joint stability, muscle strength, balance, endurance, motor control Activity/Restrictions: Patient presents with limitations in activity/restrictions in participation in the following: Mobility including: Changing positions, Maintaining positions, Transfers, Hand andarm use, Moving around the home, Moving around in the community Domestic life (meal preparation, housework, caring for others) Major life areas (education, employment) Community/social life (zoroastrian, social functions, recreation, leisure) Based on the Occupational Therapy Evaluation, including the patient's occupational profile,medical and therapy history, performance deficits, and clinical decision making, the patient presents as a high complexity evaluation. Goals/Education See Patient Education Activity for education plan. Potential to Achieve Goals: Fair Patient has reviewed, understood and agrees with treatment plan: No-confusion, unable to understandat this time PLAN Occupational Therapy Recommended Consults: None identified at this time. Occupational Therapy Clothing Consultant Goals long term care pharmacist goals to be met by discharge. OT Clothing Consultant Goals OT GRAVITY METER OPERATOR GOAL 1: Mr. Rosenthal will get ready for the day with supervision and AE/DME as needed while adhering to precautions. OT GRAVITY METER OPERATOR GOAL 2: Mr. Rosenthal will complete bathroom transfers as in home setup (toilet, shower) with supervision and LRAD while adhering to precautions. OT GROUP HOME GOAL 3: Mr. Rosenthal will complete a simple IADL task with supervision while adhering to precautions. Occupational Therapy Short Term Goals OT Short Term Goals OT SHORT TERM GOAL 1: Mr. Rosenthal will complete standing trials of at least 2 minutes for increased independence with self care tasks. Anticipated End Date-Goal 1: 01/27/23 OT SHORT TERM GOAL 2: Mr. Rosenthal will complete LB dressing with no more than moderate assist for increased independence with self care tasks. Anticipated End Date-Goal 2: 01/27/23 OT SHORT TERM GOAL 3: Mr. Rosenthal will complete foot wear with no more than maximal assist for increased independence with self care tasks. Anticipated End Date-Goal 3: 01/27/23 OT SHORT TERM GOAL 4: Mr. Rosenthal will complete a toilet transfer to most functional position (toiletvs BSC) with no more than supervision while adhering to precautions for increased independence withfunctional mobility. Anticipated End Date-Goal 4: 01/27/23 OT SHORT TERM GOAL 5: Mr. Rosenthal will complete a simple IADL task with no more than maximal verbal cues for adhering to task and problem solving. Anticipated End Date-Goal 5: 01/27/23 OT SHORT TERM GOAL 6: Mr. Rosenthal will participate in therapeutic procedures/activities at least 15 min/day and 3 days/week for increased strength and endurance for ADL, IADL, and functional mobility. Anticipated End Date-Goal 6: 01/27/23 OT SHORT TERM GOAL 7: Mr. Rosenthal will verbalize pacemaker precautions with no more than maximal verbal cues. Anticipated End Date-Goal 7: 01/27/23 Occupational Therapy Treatment Plan OT Treatment Plan OT Interventions: Activities of daily living, Instrumental activities of daily living, Transfer training, Adaptive equipment/DME recommendations, Therapeutic activities, Therapeutic procedures, Neuromuscular reeducation, Cognitive retraining, Visual-perceptual retraining, Patient/Caregiver education, Modalities (comment) (hot/cold pack) OT Intensity (Hours per Day): at least 1 OT Frequency (Days per Week): at least 5 OT Duration: 20 days (02/09) Potential to Achieve OT Goals: Fair Patient unable to review OT treatment plan due to : patient confused, A&Ox2. Unable to cognitively grasp OT treatment plan at this time. Family/Caregiver : Family/Caregiver unavailable. JACK Haile/Jessica * Mehdi Bowman MD - 01/20/2023 7:24 AM EDT [facility] Department of Physical Medicine and Rehabilitation Rehab Plan of Care Note INDIVIDUALIZED REHABILITATION OVERALL PLAN OF CARE/PROGRESS NOTE Date: 01/20/2023 PATIENT: Raghu Rosenthal : 1945 AGE: 77yrs Individual Assessment and Plan: Raghu Rosenthal a 77yrs old Male admitted to [facility] on 12/28/2022 for NSTEMI and valve replacement. Hospital course complicated by respiratory distress. Patient was seen and examined and meets medical and functional criteria for admission to Acute Inpatient Rehabilitation at [facility] today PENDING COVID TEST. GEMS: Mobility Level 3- Standing activities with assist Impaired mobility and ADLs - impaired mobility and ADLs resulting from the above and multiple comorbidities, would benefit from rehab for the following: PT: balance, functional mobility, gait training, orthotics/prosthetic training, transfer training, improving strength, improving endurance, wheelchair mobility, education on assistive devices OT: ADLs, iADLs, adaptive equipment training, transfer training 01/08/23 TransCatheter Aortic Valve Replacement ([id number], 26 Medtronic Evolut Pro, via the Left Transfemoral Approach) EF 35% (01/08/2023) Cardiogenic shock Acute on chronic HFrEF NSTEMI HLD -Therapies as above -[facility] Cardiology following -Strict I's and O's, daily weights -Avoid nephrotoxins and hypotension -Pulm toileting, monitor O2, wean as tolerated -Precautions: No heavy lifting (>10lbs), pushing, or pulling until insertion site is healed for 4-6 weeks. Do not raise your arm above shoulder level or stretch for 4-6 weeks. No driving until two-week site check appointment. - OK to shower but do not soak surgical site in water for 3 days. - Due to fragile cardiac function, will advance GDMT very slowly, holding sherman/arb for now to ensuregood tolerance to PT, [facility] cardiology will continue to follow and advance GDMT, continue toprol xl 25 mg qd ,aldactone 25 gm qd for now - continue diuresis with Torsemide 60 mg BID, monitor for volume status - continue ASA indefinetly and plavix for 6 months, pt is unable to tolerate lipitor will resume home crestor, ct trilipix CKD stage 3 Baseline creatinine ~ 1.5-1.6 Recent Labs 01/17/23 1737 01/18/23 0457 01/19/23 0437 CREATININE 1.61* 1.54* 1.45* - avoid nephrotoxic agents and renally dose all required medicines - CTM Psoriatic arthropathy Chronic Right shoulder pain OA of bilateral knees - therapies as above - MMPT PTSD Depressive disorder - consult [facility] [facility] [employer] [facility] - continue lexapro Class 2 Obesity Body mass index is 37.36 kg/m??. - nutrition/teacher lip reading counseling - DM diet w/o sweets or juice - consider referral to [facility] with Dr. Nettles ASthma OLIVIER - cipap while in IPR - continue spiriva and prn albuterol Hx of TIA Cerebellar stroke SAH - therapies as above - DAPT (30 days of plavix) and statin GERD - continue PPI DVT Prophylaxis: lovenox GI Prophylaxis: PPI Diet: cardiac/renal Bowel Regimen: tbd Code status was discussed with the patient and the patient is Full code Estimated date of Discharge: 7-10 Days Rehabilitation Potential: good Discharge Destination: Home with caregiver support Skin: No Pressure injury/ulcer Pressure Ulcer Risk Conditions: none Estimated Length of Stay: 10-12 days Medical Prognosis: Good Anticipated Functional Outcomes: Improved mobility for getting around the home and community. Greater self sufficiency in activities of daily living. Ensure adequate and appropriate nutrition. Cognition and memory improvement. Training in the use of equipment needed to increase mobility and self sufficiency., Able to communicate basic wants and needs, and direct own care., Continent of bowel and bladder., Increased understanding of physical and mental health practices to promote optimum health.. Increased understanding of the disease processes and impairments related to current cardiopulmonary disease. Safe to discharge to the community with family and/or caregivers who have been trained. Anticipated Interventions: Physical Therapy: PT Intensity: 1-2 hours/day PT Frequency: at least 5 days/week PT Duration: 12 days Refer to the PT Treatment Plan for specific interventions and individualized goals. Occupational Therapy: OT Intensity: 1-2 hours/day OT Frequency: at least 5 days/week OT Duration: 12 days Refer to the OT Treatment Plan for specific interventions and individualized goals. Nursing will: Assess vital signs: blood pressure: lying, sitting. Assess blood sugars as indicated and ensure proper diabetic education including insulin administration., Begin a bowel training program to improve bowel habits., Begin a bladder training program., and Administer DVT prophylaxis: Lovenox 40 mg subq daily, and assess skin integrity for signs of breakdown. Discharge Destination: Home with family and community support services Mehdi Bowman MD * Lenore Gresham RN - 01/20/2023 5:53 AM EDT Problem: Adult Inpatient Plan of Care Goal: Plan of Care Review Description: POC will be reviewed each shift by nurse. Outcome: Ongoing, Progressing Note: Shift summary: Patient alert and oriented x 1. VS stable. Restlessness. Confused and agitated. Dr. Sheehan notified. See MD orders.UOP adequate. No c/o pain. Am labs drawn. Hourly rounds completed, safety maintained. Problem: Fall Injury Risk Goal: Absence of Fall and Fall-Related Injury Description: Patient will remain free from falls and follow safety precautions during hospital stay. Outcome: Ongoing, Progressing Note: Pt will remain free from injury during shift. Bed low and locked, side rails up, bed alarm asneeded. Call green within reach,safety lighting and non- skid footwear when out of bed. Pt encouragedto call for assistance when getting out of bed. Gait belt and walker used for support. * Willis Soto RN - 01/19/2023 5:38 PM EDT Skin swarm completed. No breakdown over bony prominence. Bruising throughout. Has a pacemaker site covered with gauze and tegaderm. Both groin incision with approximated edges. Received in report that patient sundowns. He is currently alert and oriented only to person. [place] an airport. I was unable to complete admission questions PAS/navigator. I called with no answer. * Olga Mejía RN - 01/18/2023 1:23 PM EDT INPATIENT REHABILITATION PRE-ADMISSION SCREEN Home [address]: [address] [place] [id number] Sex: Male : 1945 Age: 77yrs Phone #: [phone] (home) SS#: [id number] [place]: [place] MR#: [id number] History of Present Illness: Raghu Rosenthal is a 77yrs old White Male with past medical history of CAD s/p CABG x2 in [place] 10 years ago, HTN, HLD, porcine AVR who initially presented to [facility] ED with complaints of SOB and midchest pressure. Patient lives in [place] with his , and is visiting [facility] for the next 3 months. He recently had a ziopatch placed by the [facility] on 4/5. Following this procedure he had worsening SOB associated with fatigue, malaise and generalized weakness. EMSwas called and he was brought to [facility] ED. On arrival he was noted to be in mild respiratory distress and required bipap. WBC of 19. EKG without NUNO, troponin 1.197. CXR consistent with mild interstitial edema, and a small left pleural effusion. He was given nitro sublingual and morphine, and started on BID lovenox. He was admitted to the ICU at [facility]. He was started on empiric vanc, cefepime for possible infection. He was hypotensive requiring levophed with a differential of cardiogenic vs septic shock. He had a repeat EKG done on 12/28 with a new LBBB. His troponin trended as high as 39. Given concerns for acute coronary syndrome, he was transferred to [facility] for further management. On arrival to CICU, patient is awake and alert. He is on low dose levophed. He was warm to the touch and appeared well perfused. POCUS with EF visually estimated at 45%. He underwent a R/LHC 12/28/2022 showin. Severe three-vessel disease with patent VOGT to LAD, intermediate stenosis in mid RCA, 60% distal left main stenosis. Culprit for his NH appears to be an occluded SVG to ramus graft. There is flowin the ramus with proximal 70% stenosis. 2. He was also noted to have severely degenerated bioprosthetic aortic valve, invasive gradients reviewed severely stenotic with mean gradient over 40 mmHg. 3. Decompensated heart failure with preserved cardiac output. We had discontinued his Levophed on arrival to the [facility]. LVEDP 30mmHg Patient was treated for cardiogenic shock and noted to have severe bioprosthetic aortic valve stenosis. Patient underwent TAVR on 01/08/23. Patient was then transferred to CICU for management. He was placed on pressure support for cardiogenic shock post procedure has been weaned only down to epinephrine. Patient was put on diuresis and changed over to Bumex drip; now PO diuretics. He was able to be extubated on 01/08/23. Mr. Rosenthal is alert, oriented, on room air, taking a regular cardiac diet, and communicating well verbally. He has been progressing well and participating in therapies. However,he continues to require assistance with ambulation, transfers, standing, dressing, incision care, and ADLs. Reason for Admission to Inpatient Rehabilitation Physical Medicine and Rehabilitation was consulted on 01/09/23 for potential admisson to inpatient rehabilitation. Rehab Impairment Code: Adult Impairment Code: 09 - Cardiac Date of Onset: 12/28/22 The patient exhibits medical conditions and functional impairments that make inpatient rehabilitation prudent for the patient's post-acute care. In addition to his pre-existing chronic CAD s/p CABG x2 in [place] 10 years ago, HTN, HLD, porcine AVR, and other co-morbidities, Mr. Rosenthal has significant impairments related to his NSTEMI, and subsequent TAVR procedure, ICU hospitalization w/intubatioin, and deconditioning. His impairments affect his ability to transfer and ambulate safely, and to perform ADLs without significant assistance. He also requires ongoing incision management with risk ofinfection. And he requires ongoing pain management. Potential Risks and Complications In addition, the patient is at risk for the following complications which require ongoing medical assessment: Anemia, Mental Status Changes, Pain, Hypertension, Myocardial Infarction, Stroke, DVT/PE,Respiratory Insufficiency, Urinary Retention, and Falls Current Conditions and Level of Function Height/Weight Height: 175.3 cm Weight: 114.8 kg BMI: 37.358 Infection: None LABS: Lab Results Component Value Date/Time SODIUM 133 (L) 01/18/2023 04:57 AM POTASSIUM 3.5 01/18/2023 04:57 AM BUN 82 (H) 01/18/2023 04:57 AM CREATININE 1.54 (H) 01/18/2023 04:57 AM WBC 9.26 01/17/2023 03:52 AM HGB 9.1 (L) 01/17/2023 03:52 AM HCT 30.0 (L) 01/17/2023 03:52 AM PLATELET 116 (L) 01/17/2023 03:52 AM PT 19.2 (H) 01/08/2023 04:39 AM INR 1.6 01/08/2023 04:39 AM Level of Functioning: Bed mobility: Supervision, Sit to Stand: Minimal Assist, Stand to Sit: Minimal Assist, Transfers: Minimal Assist, Transfer Devices: Rolling Walker and Gait Belt, Ambulation: Requires: Minimal assistance and Assistive Device: Rolling Walker and Gait Belt, Weight Bearing Status:none, Grooming/Hygiene: Minimal Assist, UE Dressing: Minimal Assist, LE Dressing: Minimal Assist, Vision: Functional with Lenses, Bladder: Urinary Retention and Indwelling Bruno, and Nutrition & Diet: Cardiac Therapies Ordered in the Acute Hospital: PT and OT Activity Tolerance: limited Fall History: None in past Year Prior Level of Function and Living Environment Prior to Onset of the Current Condition(s), the Patient: Was independent in all activities, Used a cane, Was retired, and Was not working Dominance: right handed The Patient's Living Arrangements Were: Two story home Exterior Home Access: No steps Interior Home Access: No steps Prior to admission, the patient was living with significant other Services Receiving Prior to Admission: None Intensive Interdisciplinary Program The patient requires and is reasonably expected to actively participate in an intensive rehabilitation program including at least 3 hours of therapy per day at least 5 days per week, daily assessmentby a rehabilitation physician, 24-hour rehabilitation nursing care and is expected to make measurable improvement that will be of practical value to improve functional capacity or adaptation to impairments. Services required include: Medical: [id number] a minimum of 3 times a week to assess and manage: Heart valve replacement: assess incision site for redness/swelling/drainage/foul odor, assess cardiac rhythm, assess vital signs/BP/HR/temperature, assess labs, assess for chest pain or shortness of breath, assess for swelling in extremities, assess I&O, daily weights Risk for respiratory distress: assess for chest SOB, assess vital signs/BP/HR, assess labs/WBC/H&H, encourage incentive spirometry, RT consultation, medical management (Demedex, Spiriva, Aldactone) HTN: medical management (Asa., Tricor, Aldactone, Demedex, Metoprolol), assess vital signs/BP, assess for chest pain/SOB/headache Diabetes: medical management (insulin), titrate medication to achieve parameters, assess FSBS Pain management: medical management (Neurontin), multimodal management, mobility Psychosocial/adjustment to disability: assess mood/affect HTN: medical management (Lexapro, trazadone), assess vital signs/BP, assess for chest pain/SOB/headache DVT prophylaxis/treatment: medical management (Lovenox, Plavix), mobility, PT/OT, SCDs, medical management Nursing daily to address: Neurological status assessment, Vital signs assessment, Skin integrity assessment, Bladder management, Falls precautions, prevention and education, Medication administrationand education, Pain Management, ADL training and support, Diabetes education, Cardiac precautions an d education, Calf and thigh measurements, Residual limb care, Dressing changes, Pressure relief education and reinforcement, Diet and nutritional support, Disease management, Safety education, Reinforcement of swallowing strategies, Reinforcement of cognitive-communicative strategies, and Family and caregiver education and training Physical therapy to address: Strength and activity tolerance, Range of motion, Bed mobility, Upper extremity strengthening for transfers and activities, Lower extremity strengthening, Sitting balance, Standing balance, Trunk and posture control, Gait training, Transfer training, Assistive device training, Wheelchair mobility, Neuromuscular re-education, Positioning, Pressure relief, and Family and caregiver education and training Occupational therapy to address: ADLs, iADLs, Upper extremity strength and movement, Fine motor control, Splinting, Sitting balance and reach, Transfer Training, Training in adaptive equipment, Compensatory strategies, Functional cognition, Visual perceptual skills, Energy conservation, Joint protection, Neuromuscular re-education, Positioning, Pressure relief, and Family and caregiver education and training Case management to address: Patient discharge needs and discharge plan, family and caregiver education, coordination of services and financial resources. Psychosocial assessment: adjustment to disability Dietitian/Nutrition Special Considerations and Needs Cultural: None indicated Dietary: Cardiac Medications: Refer to the Medication Administration Record in the EHR for current medications. Equipment and Devices: No additional equipment or devices indicated at this time Services: No additional services indicated at this time Expected Level of Improvement: Increase overall strength and activity tolerance, Perform dressing: Supervision, Grooming: Supervision, Toileting: Supervision, Bathing: Supervision, Transfer with: Supervision, Ambulate at home level with appropriate assistive device: Supervision, Ascend and descend steps with rail: Supervision, Continent of bladder, Decreased frequency of bladder incontinence, Independent wheelchair mobility at a home level, Independent wheelchair parts management, Functional communication with caregivers, and Adequate nutrition: Orally Prognosis for improvement toward stated goals: Excellent Potential of patient to benefit from rehabilitation program: Excellent Expected duration and frequency of treatment is 3 hours a day/5 days week until discharge with an estimated length of stay of 7-10 days. Anticipated Discharge Plans Discharge Destination: Home with friend/significant other Caregiver Name(s): Cathy Rosenthal Relationship: Spouse Contact Number(s): [phone] Emergency Contact: Lesvia Rosenthal? (Daughter) Contact Number: [phone] Anticipated post-discharge services: DME, PT, OT, Nursing, Home Health, and Outpatient clinic The Preadmission Assessment was discussed with patient and spouse by Olga Mejía RN on 01/18/2023. Inpatient rehabilitation was discussed with the patient, family, caregiver, and significant other and patient, family, caregiver, and significant other has indicated a willingness to participate in the rehabilitation program. Patient/Family stated goal: able to get up and walk and take care of himself and get home to [place] The patient and/or family have been informed of the availability of social work to assist with financial issues and resource options. What additional information was needed by patient or family to help understand the rehabilitation program? Scope of service discussed with patient/family at bedside or via phone Screening method: in person, via phone, and review of medical records The patient is found to be an appropriate admission for inpatient rehabilitation by: Christine Mclean MD Associated attestation - Christine Mclean MD - 01/18/2023 4:40 PM EDT I have reviewed the Rehabilitation Preadmission Assessment and consulted with the Preadmission team. The patient meets the rehabilitative and medical criteria for admission to Inpatient Rehabiliation. I agree with the currently proposed Plan of Treatment. Christine Mclean MD * Dakota Munguia - 01/17/2023 2:54 PM EDT REY CINTRON Governor DANIEL MARCELINO Supervisor [place] MAX LERMA Atkins Supervisor [place], [place] Medicaid PASRR Level I Determination Notification Date: 01/17/2023 RE: Raghu Rosenthal MUST ID: [id number] PASRR Number: [id number] PASRR Expiration Date: In accordance with the federally mandated Preadmission Screening and Annual Resident Review (PASRR)program for group home applicants and residents, the Medicaid Uniform Screening Program has reviewed the above named individual. The individual does not meet the federal definition for mental illness/ mental retardation and the PASRR number is listed above. The Level I Screening and PASRR number remains valid for the individual's stay. A copy of this notice should be transferred with the individual if he/she relocates to another Nursing Facility. No further PASRR screening is required unless a significant change occurs with the individual's status which suggests a diagnosis of mental illness or mental retardation or, if present, suggests a change in treatment needs for those conditions. If you have questions regarding this notice, please contact: [facility] Department of Health and Human Services Attention: LTSS - PASRR [address] [address] Phone number to contact for questions or additional information cc: FRANCESCO Mark/JOSE MIGUEL/ALEXI Legal Outside Plant Technician Nursing Facility Referring Facility Attending Physician Notice to Applicant: This letter (and attachments) may contain protected health information (PHI) from [facility], [facility], and is covered by the Electronic Communications Privacy Act, 18 U.S.C 2265-8046 and the Standards for Privacy of Individually Identifiable Health Information, 45 CFR Parts 160 and 164, which is intended only for the use of the individual or entity named in this letter. Dakota Munguia [facility] [employer] Att[employer] Phone #: [phone] IP Phone #[phone] For Case Mangement assistance Sunday through Sunday, Weekends or Holidays 8:30 am 5:00 pm, please page [phone] pager [phone]. For Case Management assistance after 5:00 pm , please call [phone]. documented in this encounter H&P Notes * Louis Lowe MD - 01/19/2023 9:08 AM EDT Images from the original note were not included. [facility] Physicians Department of Physical Medicine and Rehabilitation Rehab Physician H&P Patient Name: Raghu Rosenthal Date of Rehab Admit: 01/19/23 : 1945 Attending Provider: Admitting MD: Yoon Impairment Group Code: Adult Impairment Code: 09 - Cardiac Etiology: TAVR 01/08/23 Assessment/Plan: Raghu Rosenthal a 77yrs old Male admitted to [facility] on 12/28/2022 for NSTEMI and valve replacement. Hospital course complicated by respiratory distress. Patient was seen and examined and meets medical and functional criteria for admission to Acute Inpatient Rehabilitation at [facility] today PENDING COVID TEST. GEMS: Mobility Level 3- Standing activities with assist Impaired mobility and ADLs - impaired mobility and ADLs resulting from the above and multiple comorbidities, would benefit from rehab for the following: PT: balance, functional mobility, gait training, orthotics/prosthetic training, transfer training, improving strength, improving endurance, wheelchair mobility, education on assistive devices OT: ADLs, iADLs, adaptive equipment training, transfer training 01/08/23 TransCatheter Aortic Valve Replacement ([id number], 26 Medtronic Evolut Pro, via the Left Transfemoral Approach) EF 35% (01/08/2023) Cardiogenic shock Acute on chronic HFrEF NSTEMI HLD -Therapies as above -ECU Cardiology following -Strict I's and O's, daily weights -Avoid nephrotoxins and hypotension -Pulm toileting, monitor O2, wean as tolerated -Precautions: No heavy lifting (>10lbs), pushing, or pulling until insertion site is healed for 4-6 weeks. Do not raise your arm above shoulder level or stretch for 4-6 weeks. No driving until two-week site check appointment. - OK to shower but do not soak surgical site in water for 3 days. - Due to fragile cardiac function, will advance GDMT very slowly, holding sherman/arb for now to ensuregood tolerance to PT, U cardiology will continue to follow and advance GDMT, continue toprol xl 25 mg qd ,aldactone 25 gm qd for now - continue diuresis with Torsemide 60 mg BID, monitor for volume status - continue ASA indefinetly and plavix for 6 months, pt is unable to tolerate lipitor will resume home crestor, ct trilipix CKD stage 3 Baseline creatinine ~ 1.5-1.6 Recent Labs 01/17/23 1737 01/18/23 0457 01/19/23 0437 CREATININE 1.61* 1.54* 1.45* - avoid nephrotoxic agents and renally dose all required medicines - CTM Psoriatic arthropathy Chronic Right shoulder pain OA of bilateral knees - therapies as above - MMPT PTSD Depressive disorder - consult [facility] [facility] - continue lexapro Class 2 Obesity Body mass index is 37.36 kg/m??. - nutrition/teacher lip reading counseling - DM diet w/o sweets or juice - consider referral to [facility] with Dr. Nettles ASthma OLIVIER - cipap while in IPR - continue spiriva and prn albuterol Hx of TIA Cerebellar stroke SAH - therapies as above - DAPT (30 days of plavix) and statin GERD - continue PPI DVT Prophylaxis: lovenox GI Prophylaxis: PPI Diet: cardiac/renal Bowel Regimen: tbd Code status was discussed with the patient and the patient is Full code Estimated date of Discharge: 7-10 Days Rehabilitation Potential: good Discharge Destination: Home with caregiver support Skin: No Pressure injury/ulcer Pressure Ulcer Risk Conditions: none HPI: Raghu Rosenthal is a 77yrs old White Male with past medical history of CAD s/p CABG x2 in [place] 10 years ago, HTN, HLD, porcine AVR who initially presented to [facility] ED with complaints of SOB and midchest pressure. Patient lives in [place] with his , and is visiting [facility] for the next 3 months.He recently had a ziopatch placed by the [facility] on 12/27. Following this procedure he had worsening SOB associated with fatigue, malaise and generalized weakness. EMS was called and he was brought to [facility] ED. On arrival he was noted to be in mild respiratory distress and required bipap. WBC of 19. EKG without NUNO, troponin 1.197. CXR consistent with mild interstitial edema, and a small left pleural effusion. He was given nitro sublingual and morphine, and started on BID lovenox. He was admitted to the ICU at [facility]. He was started on empiric vanc, cefepime for possible infection. He was hypotensive requiring levophed with a differential of cardiogenic vs septic shock. He had a repeat EKG done on 12/28 with a new LBBB. His troponin trended as high as 39. Given concerns for acute coronary syndrome, he was transferred to [facility] for further management. On arrival to CICU, patient is awake and alert. He is on low dose levophed. He is warm to the touchand appears well perfused. POCUS with EF visually estimated at 45%. He underwent a R/LHC 12/28/2022 showin. Severe three-vessel disease with patent VOGT to LAD, intermediate stenosis in mid RCA, 60% distal left main stenosis. Culprit for his NH appears to be an occluded SVG to ramus graft. There is flowin the ramus with proximal 70% stenosis. 2. He is also noted to have severely degenerated bioprosthetic aortic valve, invasive gradients reviewed severely stenotic with mean gradient over 40 mmHg. 3. Decompensated heart failure with preserved cardiac output. We had discontinued his Levophed on arrival to the [facility]. LVEDP 30mmHg Patient was treated for cardiogenic shock and noted to have severe bioprosthetic aortic valve stenosis with plans for valve in valve TAVR. Patient underwent TAVR on 01/[address] Shannon Davison. Patient was then transferred to CICU for management. He was placed on pressure support for cardiogenic shock post procedure has been weaned only down to epinephrine. Patient was put on diuresis and changed overto Bumex drip which he maintains on at this time. He was able to be extubated on 01/08 and is now on6 L nasal cannula with weaning as tolerated. IPR has been consulted for potential admission. Patient currently has no new complaints. Reports he and his are from [place] and were scheduleto return back at end of the month as they were down in [place] to get away from cold weather for multiple months this winter. Patient lives with spouse in a 1 story home with elevator to enter and no rails. Prior to admission, the patient was Independent with all functional mobility and ADLs. Patient worked with PT and OT and per their most recent notes was Carline with bed mobility, Carline with transfers, and Carline with ambulation for approximately 20ft with RW. Current Functional Status: Patient worked with PT and OT and per their most recent notes was Carline with bed mobility, Carline withtransfers, and Carline with ambulation for approximately 20ft with RW. 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 Subdural hematoma (CMS/HCC) PSH: Past Surgical History: Procedure Laterality Date Left Main Stent Placement Left 01/08/2023 Performed by Tania Hartley MD at [facility] OR [facility] REPLACEMENT, AORTIC VALVE, TRANSCATHETER, FEMORAL APPROACH (MEDTRONIC 26 ELSA); Intraoperative Echocardiogram Left 01/08/2023 Performed by Tania Hartley MD at [facility] OR [facility] - CORONARY ARTERY BYPASS GRAFT [place] - REPLACEMENT OF AORTIC VALVE porcine Allergies: Allergies Allergen Reactions Hydrocodone-Acetaminophen Shortness of Breath Problems breathing Venom-Honey Bee Shortness of Breath Morphine Sulfate Nausea and Vomiting Amoxicillin Mild diarrhea Atorvastatin Joint pain Clarithromycin Clavulanic Acid diarrhea Hydrocodone Bad reaction Indomethacin Lansoprazole Leflunomide Rash RASH Pravachol [Pravastatin] rash Tetracycline swelling Unclassified Drug Nausea and Vomiting Other reaction(s): Other (See Comments) IV dyes all extremtites cold Social History: Social History Socioeconomic History Marital status: Spouse name: Not on file Number of children: Not on file Years of education: Not on file Highest education level: Not on file Occupational History Not on file Tobacco Use Smoking status: Former Types: Cigarettes Smokeless tobacco: Never Substance and Sexual Activity Alcohol use: Not on file Drug use: Not on file Sexual activity: Not on file Other Topics Concern Not on file Social History Narrative Not on file Social Determinants of Health Financial Resource Strain: Not on file Food Insecurity: Not on file Transportation Needs: Not on file Physical Activity: Not on file Stress: Not on file Social Connections: Not on file Intimate Partner Violence: Not on file Housing Stability: Not on file Family History: No family history on file. The patient's medical records have been reviewed Review of Systems: Constitutional: neg fevers and neg chills Eyes: neg diplopia and neg blurry vision Cardio: neg chest pain and neg palpations Resp: neg SOB and neg cough GI: neg constipation and neg rectal bleeding : neg urinary urgency and neg urinary retention Musc: neg joint pain and neg joint swelling Neuro: pos weakness and neg numbness Psych: neg depressed mood and neg anxiety Integumentary: neg skin breakdown and neg rashes Objective: Vitals: Ht 1.753 m Wt 114.8 kg BMI 37.36 kg/m?? Physical Exam: General: Appears disheveled, no acutely ill appearing, cooperative with exam, at bedside Eyes: Eyes anicteric, not injected. Cardiovascular: Normal rate, regular rhythm, intact distal pulses. Respiratory: Effort normal. Normal breath sounds. Gastrointestinal: Abdomen soft. No tenderness. Bowel sounds normal. Genitourinary: No palpable bladder distention. Bruno present. Musculoskeletal: RUE: Strength: 5/5 shoulder flexion, 5/5 elbow extension, 5/5 elbow flexion, 5/5 torch heater strength. LUE: Strength: 5/5 shoulder flexion, 5/5 elbow extension, 5/5 elbow flexion, 5/5 torch heater strength. RLE: Strength: 4/5 hip flexion, 5/5 knee extension, 5/5 plantar flexion, 5/5 dorsal flexion. LLE: Strength: 4/5 hip flexion, 5/5 knee extension, 5/5 plantar flexion, 5/5 dorsal flexion. Neurologic Mental Status: Intact speech and language. Orientation, attention, memory, and fund of knowledge are intact as manifested by the patient's ability to furnish a complete and lucid medical history. CN: 2-12 grossly intact Integumentary: Warm and dry. No erythema or rashes noted. Psychiatric: Mood and behavior normal. Recent Labs 01/19/23 0734 01/18/23 2056 01/18/23 1831 01/18/23 1213 GLUCOSE POCT 104* 105* 133* 120* Follow up appointments: Williams Yip MD 1-2 weeks after discharge. Tania Hartley MD 1-2 weeks after discharge. cc: Attending Provider: Admitting MD: Yoon Referring Physician: Tania Hartley MD Primary Care Physician: Williams Yip MD Provider Electronic Signature: Louis Lowe MD/WILL [facility] Department of Physical Medicine & Rehab, PGY-2 [facility] 01/19/2023 Associated attestation - Donato Jang MD - 01/19/2023 11:22 PM EDT I saw and evaluated the patient with Dr. Lowe today and agree with the rehab admission assessment and plan of care. documented in this encounter Procedure Notes * Mary Hardy RN - 01/21/2023 11:31 AM EDT ULTRASOUND GUIDED PIV BY VASCULAR ACCESS TEAM History and physical, MAR reviewed for appropriate line placement. Potential access sites are examined with ultrasound for vessel selection. Ultrasonic gel is appliedand real-time ultrasound is performed monitoring the advancement of the access needle into the lumen of the selected vessel. Ultrasound of left arm(s) done prior to placement. Site prepped with Chloraprep, PIV placed in the region of the newby basilic vein, in 1 attempts. IV catheter gauge 20 length 2.25. Pt. Tolerated PIV placement without complaints Yes. Complications no Pt did require assistance of RN and CP to obtain safe placement positioning Labs obtained: Lav Ultrasound images stored in PACS. Thank you for this referral, Mary Hardy, Vascular Access Team [phone] documented in this encounter Plan of Treatment Not on file documented as of this encounter Procedures Procedure Name Priority Date/Time Associated Diagnosis Comments EKGSCAN 01/31/2023 4:17 AM EDT GLUCOSE, GLUCOMETER Routine 01/25/2023 1 2:15 PM EDT GLUCOSE, GLUCOMETER Routine 01/25/2023 8 :11 AM EDT GLUCOSE, GLUCOMETER Routine 01/23/2023 4 :48 PM EDT VAT US GUIDED PERIPHERAL IV PLACEMENT STAT 01/21/2023 11:33 AM EDT (PANEL)-CBC WITH DIFFERENTIAL STAT 01/21/2023 11:26 AM EDT CBC WITH DIFFERENTIAL STAT 01/21/2023 11:26 AM EDT BASIC METABOLIC PANEL Routine 01/21/2023 4:[address] HEAD W/O IV CONTRAST STAT 01/20/2023 4:54 PM EDT GLUCOSE, GLUCOMETER Routine 01/20/2023 4 :23 PM EDT URINALYSIS, COMPLETE Routine 01/20/2023 2:13 PM EDT (PANEL)-URINALYSIS, COMPLETE Routine 01/20/2023 2:13 PM EDT US ABD LTD/SNGL ORGAN/QUAD/FU STAT 01/20/2023 2:05 PM EDT GLUCOSE, GLUCOMETER Routine 01/20/2023 1 1:16 AM EDT POTASSIUM Routine 01/20/2023 11:13 AM EDT EKG 12 LEAD Routine 01/20/2023 10:14 AM EDT GLUCOSE, GLUCOMETER Routine 01/20/2023 6 :59 AM EDT CBC REFLEX LAB ONLY ORDER Routine 01/20/2023 5:06 AM EDT (PANEL)-CBC WITH DIFFERENTIAL Routine 01/20/2023 5:06 AM EDT CBC WITH DIFFERENTIAL Routine 01/20/2023 5:06 AM EDT MAGNESIUM Routine 01/20/2023 5:06 AM EDT PHOSPHORUS Routine 01/20/2023 5:06 AM EDT COMPREHENSIVE METABOLIC PANEL Routine 01/20/2023 5:06 AM EDT GLUCOSE, GLUCOMETER Routine 01/19/2023 7 :58 PM EDT GLUCOSE, GLUCOMETER Routine 01/19/2023 5 :38 PM EDT documented in this encounter Results * EKGSCAN (01/31/2023 4:17 AM EDT) 01/31/2023 4:17 AM EDT 01/31/2023 4:17 AM EDT Doctor Unassigned EKG ORDERABLES * (ABNORMAL) GLUCOSE, GLUCOMETER (01/25/2023 12:15 PM EDT) Only the most recent of8 resultswithin the time period is included. Pathologist [facility] Glucose 129(H) 70 - 100 mg/dL 01/25/2023 12:16 PM EDT [facility] POC TEST Blood BLOOD / Unknown 01/25/2023 1 2:15 PM EDT 01/25/2023 12:16 PM EDT Beverly Nettles MD LAB POC UNSOLI CITED ORDERABLES [facility] POC TEST [address] [place] [address] * VAT US GUIDED PERIPHERAL IV PLACEMENT (01/21/2023 11:33 AM EDT) Narrative Model, Auto-Drapery Hanger - 01/21/2023 11:33 AM EDT Impression: The Peripheral IV line was placed by the Vascular Access Team (VAT). Please see progress notes for full report. Beverly Nettles MD RADIOLOGY VAT ORDERABLES * (ABNORMAL) CBC WITH DIFFERENTIAL (01/21/2023 11:26 AM EDT) Only the most recent of2 resultswithin the time period is included. Pathologist [facility] WBC (White Blood Cell Count) 4.95 4.50 - 11.00 k/uL 01/21/2023 11:43 AM EDT [facility] ([facility]CR[facility]ITED [facility] [employer] [facility]) RBC (Red Blood Cell Count) 3.18(L) 4.40 - 5.90 M/uL 01/21/2023 11:43 AM T [facility] ([facility] [employer] [facility]) Hemoglobin 9.4(L) 13.0 - 18.0 g/dL 01/21/2023 11:43 AM T [facility] ([facility] [employer] [facility]) Hematocrit 31.2(L) 40.0 - 52.0 % 01/21/2023 11:43 AM EDT [facility] ([facility]CR[facility] [employer] [facility]) MCV (Mean Corpuscular Volume) 98.1 80.0 - 100.0 fL 01/21/2023 11:43 AM [facility] (ACCREDITED BY [employer] [place] [facility]) MCH (Mean Corpuscular Hemoglobin) 29.6 26.0 - 34.0 pg 01/21/2023 11:43 AM [facility] (ACCR[facility]ITED BY [facility] [employer] [place] [facility]) MCHC (Mean Corpuscular Hemoglobin Concentration) 30.1(L) 32.0 - 36.0 g/dL 01/21/2023 11:43 AM [facility] (ACCR[facility]ITED BY [facility] [employer] [facility] [employer] [place] [facility]) RDW (Red Cell Distribution Width) 18.5(H) 11.5 - 14.5 % 01/21/2023 11:43 AM [facility] ([facility] BY [facility] [employer] [facility]) Platelet Count 74(L) 150 - 440 k/uL 01/21/2023 11:43 AM [facility] ([facility] [employer] [facility] [employer] [facility]) MPV (Mean Platelet Volume) 10.4 7.4 - 10.6 fL 01/21/2023 11:43 AM [facility] (ACCR[facility] BY [facility] [employer] [facility]) Nucleated RBC 0.0 0 /100 WBC 01/21/2023 11:43 AM [facility] ([facility] [facility]) Absolute Nucleated RBC (#) <0.01 0 k/uL 01/21/2023 11:43 AM [facility] ([facility] BY [facility] [employer] [facility]) Neutrophils (%) 61 % 3 11:43 AM [facility] (ACCR[facility] BY [facility] [facility] [employer] [facility]) Lymphocytes (%) 15 % 3 11:43 AM [facility] (ACCR[facility] BY [facility] [facility]) Monocytes (%) 9 % 01/21/2023 11:43 AM [facility] (ACCR[facility] BY [facility] [employer] [facility]) Eosinophils (%) 15 % 3 11:43 AM [facility] (ACCR[facility] BY [facility] [employer] [facility]) Basophils (%) 0 % 01/21/2023 11:43 AM [facility] ([facility] [employer] [facility]) Immature Granulocytes (%) 0 % 01/21/2023 11:43 AM EDT [facility] ([facility] [employer] [facility] [employer] [facility]) Absolute Neutrophils (#) 2.98 1.80 - 7.70 k/uL 01/21/2023 11:43 AM EDT [facility] ([facility] [employer] [facility]) Absolute Lymphocytes (#) 0.72(L) 1.00 - 4.80 k/uL 01/21/2023 11:43 AM EDT [facility] ([facility] [employer] [facility]) Absolute Monocytes (#) 0.45 0.00 - 0.80 k/uL 01/21/2023 11:43 AM T [facility] ([facility] [employer] [facility]) Absolute Eosinophils (#) 0.76(H) 0.00 - 0.50 k/uL 01/21/2023 11:43 AM EDT [facility] ([facility] [employer] [facility]) Absolute Basophils (#) 0.02 0.00 - 0.20 k/uL 01/21/2023 11:43 AM T [facility] ([facility] [employer] [facility]) Absolute Immature Granulocytes (#) 0.02(H) 0 k/uL 01/21/2023 11:43 AM T [facility] ([facility] [employer] [facility]) Blood BLOOD / Unknown Venipuncture / Unknown 01/21/2023 11:26 AM EDT 01/21/2023 11:29 AM EDT Marlon Van DO LAB BLOOD ORDERABL ES [facility] ([facility] [employer] [facility]) [address] [place] [address] * (ABNORMAL) BASIC METABOLIC PANEL (01/21/2023 4:26 AM EDT) BUN 61(H) 8 - 26 mg/dL 01/21/2023 6:50 AM EDT [facility] ([facility] [employer] [facility]) Sodium 135(L) 136 - 145 mEq/L 01/21/2023 6:50 AM EDT [facility] ([facility] [employer] [facility]) Potassium 3.3(L) 3.5 - 5.1 mEq/L 01/21/2023 6:50 AM EDT [facility] ([facility] [employer] [facility]) Chloride 97(L) 98 - 107 mEq/L 01/21/2023 6:50 AM T [facility] ([facility] [employer] [facility]) CO2 25 23 - 31 mEq/L 01/21/2023 6:50 AM EDT [facility] [employer] [facility]) Anion Gap 13(H) 4 - 12 mEq/L 01/21/2023 6:50 AM T [facility] ([facility] [employer] [facility]) Glucose 88 70 - 105 mg/dL 01/21/2023 6:50 AM [facility] ([facility] [employer] [facility]) Creatinine 1.56(H) 0.72 - 1.25 mg/dL 01/21/2023 6:50 AM T [facility] ([facility] [employer] [facility]) Glomerular Filtration Rate 46(L) >=59 mL/Min/1.7 3 m2 01/21/2023 6:50 AM T [facility] ([facility] [employer] [employer] [facility]) Calcium 8.8 8.4 - 10.2 mg/dL 01/21/2023 6:50 AM [facility] ([facility] [employer] [facility]) Osmo (Calc'd) 299 mOsm/kg 01/21/2023 6:50 AM [facility] ([facility] [employer] [facility]) Bun:Creat Ratio 39.10 6:50 AM T [facility] ([facility] [employer] [facility]) Blood BLOOD / Unknown Venipuncture / Unknown 01/21/2023 4:26 AM EDT 01/21/2023 4:33 AM EDT Marlon Van DO LAB BLOOD ORDERABL ES [facility] ([facility] [employer] [facility]) [address] [place] [address] * CT HEAD W/O IV CONTRAST (01/20/2023 4:54 PM EDT) Anatomical Region Laterality Modality Head Computed Tomogra phy 01/20/2023 5:02 PM EDT Addenda Addendum by Javed Infante MD on 01/21/2023 3:07 PM EDT Addendum to correct a dictation error within the original report. There is a chronic infarct in the right parietal lobe extending to the temporoparietal junction. The current exam does not demonstrate evidence of an acute infarct as stated in the original impression. Impressions 01/20/2023 5:37 PM EDT IMPRESSION: 1. No evidence of acute intracranial hemorrhage, acute territorial infarction, hydrocephalus, or mass. 2. Mild chronic small vessel disease with chronic right parietal infarct, age indeterminant small left occipital lobe infarct, small chronic left cerebellar infarct, and multifocal age indeterminant but chronic appearing left internal border zone infarcts. Please note that this degree of brain parenchymal hypoattenuation limits sensitivity for detection of superimposed acute intraparenchymal abnormalities. Consider MRI if there is continued clinical concern. Reading Doctor: Javed Infante Electronic Signature by: Javed Infante Narrative 01/20/2023 5:37 PM EDT TECHNIQUE: CT HEAD W/O IV CONTRAST HISTORY: ??Acute deviance from baseline neurological status CONTRAST: None. COMPARISON: None. FINDINGS: There is no evidence of acute intracranial hemorrhage, acute large vessel territory ischemic change, or mass. There is an acute infarct in the right parietal lobe extending to the temporoparietal junction. There is an age-indeterminate infarct in the left occipital lobe. There are focal hypodensities suggestive of internal border zone infarcts within the left frontal and parietal white matter extending to the temporoparietal junction. There is a small chronic linear infarct in the left cerebellar hemisphere. There is scattered supratentorial white matter hypoattenuation which is non- specific but suggestive of sequelae from mild chronic small vessel disease. There is no evidence of hydrocephalus, midline shift, or abnormal extra-axial fluid collection. There is atherosclerotic calcification of the bilateral carotid siphons. The visualized portions of the paranasal sinuses are clear. The bones, orbits, and extracranial soft tissues are unremarkable. Procedure Note Javed Infante MD - 01/20/2023 TECHNIQUE: CT HEAD W/O IV CONTRAST HISTORY: Acute deviance from baseline neurological status CONTRAST: None. COMPARISON: None. FINDINGS: There is no evidence of acute intracranial hemorrhage, acute large vesselterritory ischemic change, or mass. There is an acute infarct in the right parietal lobe extending to thetemporoparietal junction. There is an age-indeterminate infarct in theleft occipital lobe. There are focal hypodensities suggestive of internalborder zone infarcts within the left frontal and parietal white matterextending to the temporoparietal junction. There is a small chronic linearinfarct in the left cerebellar hemisphere. There is scattered supratentorial white matter hypoattenuation which isnon- specific but suggestive of sequelae from mild chronic small vesseldisease. There is no evidence of hydrocephalus, midline shift, or abnormalextra-axial fluid collection. There is atherosclerotic calcification of the bilateral carotid siphons. The visualized portions of the paranasal sinuses are clear. The bones, orbits, and extracranial soft tissues are unremarkable. IMPRESSION IMPRESSION: 1. No evidence of acute intracranial hemorrhage, acute territorialinfarction, hydrocephalus, or mass. 2. 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 Please note that this degree of brainparenchymal hypoattenuation limits sensitivity for detection ofsuperimposed acute intraparenchymal abnormalities. Consider MRI if thereis continued clinical concern. Reading Doctor: Javed Infante Electronic Signature by: Javed Infante Marlon Van DO RADIOLOGY CT ORDER [place] * URINALYSIS, COMPLETE (01/20/2023 2:13 PM EDT) Color, Urine Straw Colorless, Yellow, or Straw 01/20/2023 2:33 PM EDT [facility] Clarity, Urine Clear Clear 01/20/2023 2:33 PM EDT [facility] Specific [place], Urine 1.009 1.005 - 1.030 01/20/2023 2:33 PM EDT [facility] pH, Urine 7.0 5.0 - 8.0 01/20/2023 2:33 PM EDT [facility] Hemoglobin, Urine Negative Negative 01/20/2023 2:33 PM EDT [facility] Bilirubin, Urine Negative Negative 01/20/2023 2:33 PM EDT [facility] Urobilinogen, Urine Normal Normal 01/20/2023 2:33 PM EDT [facility] Ketones, Urine Negative Negative 01/20/2023 2:33 PM EDT [facility]) Glucose, Urine Negative Negative 01/20/2023 2:33 PM EDT [facility] Nitrites, Urine Negative Negative 01/20/2023 2:33 PM EDT [facility] Leukocyte Esterase, Urine Negative Negative 01/20/2023 2:33 PM EDT [facility]) Protein, Urine Negative Negative 01/20/2023 2:33 PM EDT [facility]) Urine URETHRAL STRUCTURE / Unknown Non-blood Collection / Unknown 01/20/2023 2:13 PM EDT 01/20/2023 2:20 PM EDT Narrative [facility] - 01/20/2023 2:33 PM EDT Microscopic examination not indicated. Marlon Van DO LAB URINE ORDERABL ES [facility] [address] [place] [address] * US ABD LTD/SNGL ORGAN/QUAD/FU (01/20/2023 2:05 PM EDT) Anatomical Region Laterality Modality Abdomen Ultrasound 01/20/2023 2:29 PM EDT Impressions 01/20/2023 3:01 PM EDT IMPRESSION: 1. Moderate splenomegaly. 2. Left renal cysts. Reading Doctor: Gal Acuña Electronic Signature by: Gal Acuña Narrative 01/20/2023 3:01 PM EDT CLINICAL HISTORY: ?LUQ pulsating . COMPARISON: Chest, abdomen, and pelvis CTA 12/30/2022. FINDINGS: Grayscale and color Doppler imaging performed of left upper abdomen. Spleen is moderately enlarged, measuring 18.6 cm in craniocaudal dimension. No evidence of mass or focal fluid collection left lower quadrant. Left kidney measures 10.9 cm in length with multiple cysts with largest measuring 3.2 cm upper pole and 3.3 cm lower pole. No evidence of hydronephrosis, calculi, or solid renal mass left kidney. Abdominal aorta obscured by bowel gas. Procedure Note Gal Acuña MD - 01/20/2023 CLINICAL HISTORY: LUQ pulsating . COMPARISON: Chest, abdomen, and pelvis CTA 12/30/2022. FINDINGS: Grayscale and color Doppler imaging performed of left upperabdomen. Spleen is moderately enlarged, measuring 18.6 cm in craniocaudaldimension. No evidence of mass or focal fluid collection left lowerquadrant. Left kidney measures 10.9 cm in length with multiple cysts withlargest measuring 3.2 cm upper pole and 3.3 cm lower pole. No evidence ofhydronephrosis, calculi, or solid renal mass left kidney. Abdominal aortaobscured by bowel gas. IMPRESSION IMPRESSION: 1. Moderate splenomegaly. 2. Left renal cysts. Reading Doctor: Gal Acuña Electronic Signature by: Gal Acuña Marlon Van DO RADIOLOGY US ORDER [place] * (ABNORMAL) POTASSIUM (01/20/2023 11:13 AM EDT) Potassium 3.4(L) 3.5 - 5.1 mEq/L 01/20/2023 11:53 AM EDT [facility] Blood BLOOD / Unknown Venipuncture / Unknown 01/20/2023 11:13 AM EDT 01/20/2023 11:22 AM EDT Marlon Van DO LAB BLOOD ORDERABL ES Performing Organization Address City/[facility]/ZIP Co de Phone Number [facility] [address] [place] [address] * EKG 12 LEAD (01/20/2023 10:14 AM EDT) EKG Text INTERFACED DOCUMENTS - [facility] - ABNORMAL ECG - A-V dual-paced rhythm When compared with ECG of 14-Jan-2023 16:50:58, No significant change Reading Physician ? [id number]&Medrano&D avid&W [facility] ) Heart Rate 78 EKG LAB P-R Interval 113 EKG LAB P Martin 139 EKG LAB QRS Duration 170 EKG LAB QT Internal 520 EKG LAB QTcB 595 EKG LAB QRS Martin 118 EKG LAB I-40 Martin 136 EKG LAB T-40 Martin 105 EKG LAB T Wave Martin -[address] Martin EKG LAB 01/20/2023 10:1 4 AM EDT Marlon Van DO EKG ORDERABLES Performing Organization Address City/[facility]/ZIP Co de Phone Number [facility] [address] [place] [address] EKG LAB [address] [place] [address] * CBC REFLEX LAB ONLY ORDER (01/20/2023 5:06 AM EDT) Blood BLOOD / Unknown Venipuncture / Unknown 01/20/2023 5:06 AM EDT 01/20/2023 5:12 AM EDT Louis Lowe MD LAB HEMATOLOGY O RDERABLES Performing Organization Address City/[facility]/ZIP Co de Phone Number [facility]) [address] [place] [id number] * (ABNORMAL) PHOSPHORUS (01/20/2023 5:06 AM EDT) Phosphorus 1.8(L) 2.3 - 4.7 mg/dL 01/20/2023 5:56 AM EDT [facility]) Blood BLOOD / Unknown Venipuncture / Unknown 01/20/2023 5:06 AM EDT 01/20/2023 5:12 AM EDT Louis Lowe MD LAB BLOOD ORDERA BLES Performing Organization Address [facility]/ZIP Co de Phone Number [facility]) [address] [place] [address] * MAGNESIUM (01/20/2023 5:06 AM EDT) Magnesium 1.6 1.6 - 2.6 mg/dL 01/20/2023 5:56 AM EDT [facility]) Blood BLOOD / Unknown Venipuncture / Unknown 01/20/2023 5:06 AM EDT 01/20/2023 5:12 AM EDT Louis Lowe MD LAB BLOOD ORDERA BLES Performing Organization Address City/[facility]/ZIP Co de Phone Number [facility] [address] [place] [address] * (ABNORMAL) COMPREHENSIVE METABOLIC PANEL (01/20/2023 5:06 AM EDT) Sodium 132(L) 136 - 145 mEq/L 01/20/2023 5:56 AM EDT [facility]) Potassium 01/20/2023 5:56 AM [facility]) Comment:Hemolyzed Specimen Chloride 95(L) 98 - 107 mEq/L 01/20/2023 5:56 AM [facility]) CO2 23 23 - 31 mEq/L 01/20/2023 5:56 AM [facility]) Calcium 8.6 8.4 - 10.2 mg/dL 01/20/2023 5:56 AM [facility]) Glucose 82 70 - 105 mg/dL 01/20/2023 5:56 AM [facility]) BUN 68(H) 8 - 26 mg/dL 01/20/2023 5:56 AM [facility]) Creatinine 1.49(H) 0.72 - 1.25 mg/dL 01/20/2023 5:56 AM [facility]) Glomerular Filtration Rate 48(L) >=59 mL/Min/1.7 3 m2 01/20/2023 5:56 AM [facility]) Protein, Total 5.4(L) 6.2 - 8.1 g/dL 01/20/2023 5:56 AM [facility]) Albumin 2.6(L) 3.2 - 4.6 g/dL 01/20/2023 5:56 AM [facility]) Bilirubin, Total 1.5(H) 0.1 - 1.2 mg/dL 01/20/2023 5:56 AM [facility]) Alk Phosphatase 43 40 - 150 U/L 01/20/2023 5:56 AM [facility]) SGOT (AST) 01/20/2023 5:56 AM [facility]) Comment: Interpret with caution, results may be falsely elevated. Hemolyzed Specimen SGPT (ALT) 22 0 - 55 U/L 01/20/2023 5:56 AM EDT [facility]) Anion Gap 14(H) 4 - 12 mEq/L 01/20/2023 5:56 AM EDT [facility]) Bun:Creat Ratio 45.64 3 5:56 AM EDT [facility]) Osmo (Calc'd) 295 mOsm/kg 01/20/2023 5:56 AM EDT [facility]) Globulin (Calc'd) 2.8 g/dL 01/20/2023 5:56 AM EDT [facility]) A:G Ratio 0.93 01/20/2023 5:56 AM EDT [facility]) Blood BLOOD / Unknown Venipuncture / Unknown 01/20/2023 5:06 AM EDT 01/20/2023 5:12 AM EDT Louis Lowe MD LAB BLOOD ORDERA BLES [facility]) [address] [place] [address] documented in this encounter Visit Diagnoses Diagnosis Hypertension Unspecified essential hypertension Hyperlipidemia Other and unspecified hyperlipidemia Coronary artery disease Coronary atherosclerosis of unspecified type of vessel, [place] or graft Vitreous degeneration, right eye Sensorineural hearing loss, bilateral Psoriasis with arthropathy (CMS/HCC) ([facility] ([facility] ([facility]) Psoriatic arthropathy Posttraumatic stress disorder Pain in right shoulder Pain in joint, shoulder region Obesity Obesity, unspecified Obstructive sleep apnea syndrome in adult Obstructive sleep apnea (adult) (pediatric) Cerebellar stroke syndrome Acute, but ill-defined, cerebrovascular disease Subarachnoid hemorrhage (CMS/HCC) ([facility]) ([facility] ([facility]) Subarachnoid hemorrhage 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 Personal history of transient ischemic attack (TIA), and cerebral infarction without residual deficits Nonrheumatic aortic (valve) stenosis GERD (gastroesophageal reflux disease) Esophageal reflux Diabetes mellitus ([facility]) ([facility] ([facility] ([facility]) Type II or unspecified type diabetes mellitus without mention of complication, not stated as uncontrolled Cholelithiasis Calculus of gallbladder without mention of cholecystitis or obstruction Abdominal panniculus Localized adiposity 01/08/23 TransCatheter Aortic Valve Replacement ([id number], 26 Medtronic Evolut Pro, via the Left Transfemoral Approach) EF 35% CKD (chronic kidney disease) stage 3, GFR 30-59 ml/min ([facility] ([facility] ([facility]) ([facility]) Chronic kidney disease, Stage III (moderate) documented in this encounter Administered Medications Inactive Administered Medications - up to 3 most recent administrations Medication Order MAR Action Action Date Dose Rate Site aspirin ([employer] ASPIRIN) chewable tablet 81 mg 81 mg, Oral, DAILY AT 0800, First dose on 01/20/23 at 0800, For 365 days $ Given 01/21/2023 9:04 AM EDT 81 mg $ Given 01/20/2023 8:48 AM EDT 81 mg clopidogreL (PLAVIX) tablet 75 mg 75 mg, Oral, DAILY, First dose on 01/20/23 at 0800, For 365 days $ Given 01/21/2023 9:04 AM EDT 75 mg $ Given 01/20/2023 8:44 AM EDT 75 mg escitalopram (LEXAPRO) tablet 10 mg 10 mg, Oral, EVERY EVENING, First dose on 01/20/23 at 2100, For 365 days, Fall Risk Medication $ Given 01/20/2023 8:08 PM EDT 10 mg metoprolol succinate XL (TOPROL-XL) 24 hr tablet 25 mg 25 mg, Oral, DAILY, First dose on 01/20/23 at 0800, For 365 days, Do NOT crush or chew. May break in half. $ Given 01/21/2023 9:04 AM EDT 25 mg $ Given 01/20/2023 8:44 AM EDT 25 mg OLANZapine (ZyPREXA) tablet 5 mg 5 mg, Oral, EVERY 8 HOURS NEEDED, Other, Starting on 01/20/23 at 0444, For 3 days, Fall Risk Medication $ Given 01/20/2023 7:32 PM EDT 5 mg $ Given 01/20/2023 4:54 AM EDT 5 mg pantoprazole (PROTONIX) EC tablet 40 mg 40 mg, Oral, ONCE, On 01/20/23 at 0600, For 1 dose, Do NOT crush, break, or chew. Take on an empty stomach at least 30 minutes before food. $ Given 01/20/2023 4:54 AM EDT 40 mg potassium chloride (KLOR-CON M20) CR tablet 40 mEq 40 mEq, Oral, DAILY, First dose on 01/20/23 at 1405, For 30 doses, To suspend: * Place the whole tablet in approximately 120 mL of cold water or juice to reduce stomach irritation or laxative effects. * Allow approximately 2 minutes for the contents to dissolve. * Stir for about half a minute after the contents have dissolved. * Swirl the suspension and administer orally. * Add another 30 mL of water, swirl, and administer immediately. $ Given 01/21/2023 9:04 AM EDT 40 mEq $ Given 01/20/2023 5:15 PM EDT 40 mEq QUEtiapine (SEROquel) tablet 100 mg 100 mg, Oral, ONCE, On 01/21/23 at 0515, For 1 dose, Fall Risk Medication $ Given 01/21/2023 5:43 AM EDT 100 m g QUEtiapine (SEROquel) tablet 25 mg 25 mg, Oral, EVERY 8 HOURS NEEDED, Other, Agitation, Starting on 01/20/23 at 0152, For 365 days, Fall Risk Medication $ Given 01/20/2023 2:01 AM EDT 25 mg QUEtiapine (SEROquel) tablet 50 mg 50 mg, Oral, EVERY 8 HOURS NEEDED, Other, Agitation, Starting on 01/20/23 at 2029, For 365 days, Fall Risk Medication $ Given 01/20/2023 11:03 PM EDT 50 mg sod phos di, mono-K phos mono (K PHOS NEUTRAL) per tablet 2 Tablet 2 Tablet, Oral, EVERY 4 HOURS FREE TIMES, First dose on 01/20/23 at 0840, For 2 doses, Phosphorus = 8 mmol/tab, Potassium = 1.1 mEq/tab, Sodium = 13 mEq/tab. Use for K Phos neutral. Give with at least 8 oz of water. For tube administration, crush and dissolve in 6-8 oz of water. , Indications: hypophosphatemia $ Given 01/20/2023 12:25 PM EDT 2 Tablets $ Given 01/20/2023 8:44 AM EDT 2 Tablets sodium chloride 0.9 % flush 3 mL 3 mL, Intravenous, EVERY 8 HOURS, First dose on Sun01/19/23 at 1710, For 30 days, Aspirate lock to ensure patency; flush with 3 ml of NaCl. If a medication is administered, flush before and after administration. $ Given 01/21/2023 8:00 AM EDT 3 mL $ Given 01/20/2023 12:00 PM EDT 3 mL spironolactone (ALDACTONE) tablet 25 mg 25 mg, Oral, DAILY, First dose on 01/20/23 at 0800, For 365 days, Fall Risk Medication $ Given 01/21/2023 9:04 AM EDT 25 mg $ Given 01/20/2023 8:47 AM EDT 25 mg tiotropium (SPIRIVA) 18 mcg per inhalation capsule 1 Capsule 1 Capsule, Inhalation, RT DAILY, First dose on 01/20/23 at 1000, For 365 days, RESPIRATORY to administer. *Do NOT give capsule orally. For INHALATION ONLY.* Remove capsule from blister pack immediately before use. Capsules not used immediately should be discarded. Peel back the printed foil until you see the whole capsule. $ Given 01/20/2023 12:26 PM EDT 1 Capsule torsemide (DEMADEX) tablet 60 mg 60 mg, Oral, TWICE A DAY DIURETICS, First dose on 01/20/23 at 0600, For 365 days, Fall Risk Medication $ Given 01/20/2023 5:15 PM EDT 60 mg $ Given 01/20/2023 4:54 AM EDT 60 mg traZODone (DESYREL) tablet 50 mg 50 mg, Oral, AT BEDTIME NEEDED, Sleep, Starting on Sun01/20/23 at 0152, For 365 days, Fall Risk Medication $ Given 01/20/2023 2:00 AM EDT 50 mg traZODone (DESYREL) tablet 50 mg 50 mg, Oral, EVERY EVENING, First dose (after last modification) on 01/20/23 at 2100, For 30 doses, Fall Risk Medication $ Given 01/20/2023 8:08 PM EDT 50 mg documented in this encounter Active and Recently Administered Medications Times are shown in EDT. Scheduled Medication Order 01/19/2023 01/20/2023 01/21/2023 aspirin ([employer] ASPIRIN) chewable tablet 81 mg 81 mg, Oral, DAILY AT 0800, First dose on 01/20/23 at 0800, For 365 days 0848 ($ Given - Provider: Laith Cesar RN) 0904 ($ Given - Provider: Michael Colvin, JULIA) clopidogreL (PLAVIX) tablet 75 mg 75 mg, Oral, DAILY, First dose on 01/20/23 at 0800, For 365 days 0844 ($ Given - Provider: Laith Cesar RN) 0904 ($ Given - Provider: Michael Colvin, JULIA) escitalopram (LEXAPRO) tablet 10 mg 10 mg, Oral, EVERY EVENING, First dose on 01/20/23 at 2100, For 365 days, Fall Risk Medication 2007 ($ Given - Provider: Lenore Gresham RN) metoprolol succinate XL (TOPROL-XL) 24 hr tablet 25 mg 25 mg, Oral, DAILY, First dose on 01/20/23 at 0800, For 365 days, Do NOT crush or chew. May break in half. 0844 ($ Given - Provider: Laith Cesar RN) 0904 ($ Given - Provider: Michael Colvin RN - Comment: bp 99/51hr 73) pantoprazole (PROTONIX) EC tablet 40 mg (COMPLETED) 40 mg, Oral, ONCE, On 01/20/23 at 0600, For 1 dose, Do NOT crush, break, or chew. Take on an empty stomach at least 30 minutes before food. 0454 ($ Given - Provider: Lenore Gresham RN) potassium chloride (KLOR-CON M20) CR tablet 40 mEq 40 mEq, Oral, DAILY, First dose on 01/20/23 at 1405, For 30 doses, To suspend: * Place the whole tablet in approximately 120 mL of cold water or juice to reduce stomach irritation or laxative effects. * Allow approximately 2 minutes for the contents to dissolve. * Stir for about half a minute after the contents have dissolved. * Swirl the suspension and administer orally. * Add another 30 mL of water, swirl, and administer immediately. 1715 ($ Given - Provider: Laith Cesar RN) 0904 ($ Given - Provider: Michael Colvin, JULIA) QUEtiapine (SEROquel) tablet 100 mg (COMPLETED) 100 mg, Oral, ONCE, On Sun01/21/23 at 0515, For 1 dose, Fall Risk Medication 0543 ($ Given - Provider: Lenore Gresham RN) sod phos di, mono-K phos mono (K PHOS NEUTRAL) per tablet 2 Tablet (COMPLETED) 2 Tablet, Oral, EVERY 4 HOURS FREE TIMES, First dose on 01/20/23 at 0840, For 2 doses, Phosphorus = 8 mmol/tab, Potassium = 1.1 mEq/tab, Sodium = 13 mEq/tab. Use for K Phos neutral. Give with at least 8 oz of water. For tube administration, crush and dissolve in 6-8 oz of water. , Indications: hypophosphatemia 0844 ($ Given - Provider: Laith Cesar RN)1225 ($ Given - Provider: Laith Cesar RN) sodium chloride 0.9 % flush 3 mL 3 mL, Intravenous, EVERY 8 HOURS, First dose on Sun01/19/23 at 1710, For 30 days, Aspirate lock to ensure patency; flush with 3 ml of NaCl. If a medication is administered, flush before and after administration. 1710 (Not Given - Provider: Willis Soto RN - Reason: Other (See Comment)) 0000 (Override Completed - Provider: Lenore Gresham RN)1200 ($ Given - Provider: Laith Cesar RN)1600 (Not Given - Provider: Laith Cesar RN - Reason: Other (See Comment) - Comment: New IV) 0000 (Override Completed - Provider: Lenore Gresham RN)0800 ($ Given - Provider: Michael Colvin, JULIA) spironolactone (ALDACTONE) tablet 25 mg 25 mg, Oral, DAILY, First dose on 01/20/23 at 0800, For 365 days, Fall Risk Medication 0847 ($ Given - Provider: Laith Cesar RN) 0904 ($ Given - Provider: Michael Colvin RN - Comment: bp 99/51hr 73) tiotropium (SPIRIVA) 18 mcg per inhalation capsule 1 Capsule(Linked Group 1) 1 Capsule, Inhalation, RT DAILY, First dose on 01/20/23 at 1000, For 365 days, RESPIRATORY to administer. *Do NOT give capsule orally. For INHALATION ONLY.* Remove capsule from blister pack immediately before use. Capsules not used immediately should be discarded. Peel back the printed foil until you see the whole capsule. 1226 ($ Given - Provider: Laith Cesra RN) 1000 (Not Given - Provider: Michael Colvin RN - Reason: Other (See Comment) - Comment: patient very confused and would not inhale.) torsemide (DEMADEX) tablet 60 mg 60 mg, Oral, TWICE A DAY DIURETICS, First dose on 01/20/23 at 0600, For 365 days, Fall Risk Medication 0454 ($ Given - Provider: Lenore Gresham RN)1715 ($ Given - Provider: Laith Cesar RN) 0600 (Not Given - Provider: Lenore Gresham RN - Reason: Patient/family refused) traZODone (DESYREL) tablet 50 mg 50 mg, Oral, EVERY EVENING, First dose (after last modification) on 01/20/23 at 2100, For 30 doses, Fall Risk Medication 2007 ($ Given - Provider: Lenore Gresham RN) PRN Medication Order 01/19/2023 01/20/2023 01/21/2023 bisacodyL (DULCOLAX) suppository 10 mg 10 mg, Per Rectum, DAILY NEEDED, Constipation, Starting on Sun01/19/23 at 1706, For 365 days dextrose (DIABETIC USE) 40 % oral gel 6 g glucose 6 g glucose (15 g), Oral, NEEDED, Hypoglycemia, hypoglycemia-preferred method of treating hypoglycemia, Starting on Sun01/19/23 at 1706, For 30 days, 37.5 g of Oral Gel = 15 g of glucose. dextrose 50% in water (D50W) injection 25 mL 25 mL, Intravenous, NEEDED, Hypoglycemia, Blood glucose 55-69 mg/dL--for unresponsive, altered mental status, seizures, or NPO status, Starting on Sun01/19/23 at 1706, For 365 days dextrose 50% in water (D50W) injection 50 mL 50 mL, Intravenous, NEEDED, Hypoglycemia, Blood glucose 54 mg/dL or less--for unresponsive, altered mental status, seizures, or NPO status, Starting on Sun01/19/23 at 1706, For 365 days hydrALAZINE (APRESOLINE) tablet 10 mg 10 mg, Oral, EVERY 4 HOURS NEEDED, Other, Systolic BP GREATER than 180 mmHg, Starting on Sun01/19/23 at 1706, For 365 days OLANZapine (ZyPREXA) tablet 5 mg (CANCELED) 5 mg, Oral, EVERY 8 HOURS NEEDED, Other, Starting on Sun01/20/23 at 0444, For 3 days, Fall Risk Medication 0454 ($ Given - Provider: Heidi Gresham RN)1932 ($ Given - Provider: Lenore Gresham RN) ondansetron ODT (ZOFRAN-ODT) dispersible tablet 4 mg 4 mg, Oral, EVERY 8 HOURS NEEDED, Nausea, Vomiting, Starting on Sun01/19/23 at 1706, For 365 days, Orally disintegrating. QUEtiapine (SEROquel) tablet 25 mg (CANCELED) 25 mg, Oral, EVERY 8 HOURS NEEDED, Other, Agitation, Starting on Sun01/20/23 at 0152, For 365 days, Fall Risk Medication 0201 ($ Given - Provider: Heidi Gresham RN) QUEtiapine (SEROquel) tablet 50 mg 50 mg, Oral, EVERY 8 HOURS NEEDED, Other, Agitation, Starting on 01/20/23 at 2029, For 365 days, Fall Risk Medication 2303 ($ Given - Provider: Heidi Gresham RN) traZODone (DESYREL) tablet 50 mg (CANCELED) 50 mg, Oral, AT BEDTIME NEEDED, Sleep, Starting on Sun01/20/23 at 0152, For 365 days, Fall Risk Medication 0200 ($ Given - Provider: Heidi Gresham RN) Linked Groups Order Group 1: tiotropium (SPIRIVA) 18 mcg per inhalation capsule 1 CapsuleJump to med 1 Capsule, Inhalation, RT DAILY, First dose on 01/20/23 at 1000, For 365 days, RESPIRATORY to administer. *Do NOT give capsule orally. For INHALATION ONLY.* Remove capsule from blister pack immediately before use. Capsules not used immediately should be discarded. Peel back the printed foil until you see the whole capsule. And Administration, Evaluation and Education of MDI or DPI by Respiratory Therapy as Ordered (COMPLETED) ORDERED - RT ONLY, Starting on Sun01/19/23 at 1754, Until Specified, Routine documented in this encounter Care Teams Equipment Lead Relationship Specialty Start Date End Date Williams Yip MD [address] [place] [address] PCP - General Cardiology 12/29/22 Nela Trejo [address] [place] [address] 01/02/23 documented as of this encounter Additional [...] prosecute any alcohol or drug abuse patient. [employer]
--- OUTSIDE RECORDS SUMMARY | 2024-09-23 14:16 | XMS_ITS | Encounter Summary ---
Author Organization [facility] ([facility]a. [facility]) Address [address] [place] [address] Care Team Providers Care Associate Art Director Name Role Phone Williams Yip MD Primary Care Provider [phone] Nela Trejo Unavailable Unavailable Encounter Details Date Type Department Care Team (Latest Contact Info) Description 01/26/2023 5:11 PM EDT - 02/07/2023 2:29 PM EDT Hospital Encounter [facility] - Re[facility] Neurosc[facility] [address] [facility] [address] [place] [address] Beverly Nettles MD [address] [place] [address] Discharge Disposition: Discharged to home or self care (routine discharge) Social History Tobacco Use Types Packs/Day Years [...] Mass Index 35.27 01/26/2023 5:56 PM EDT documented in this encounter Functional [...] No 01/26/2023 documented as of this encounter Discharge Summaries * Leigha Warren, PT - 02/07/2023 4:19 PM EDT PHYSICAL THERAPY DISCHARGE SUMMARY-REHAB [facility] Discharge Date from PT: 02/07/23 Patient Name:Raghu Rosenthal Age: 77yrs : 1945 Sex: Male Attending Provider: Dr. Paul [facility] Admit Date: 01/26/2023 Precautions: Fall and Cardiac (No heavy lifting (>10lbs), pushing, or pulling until insertion site is healed for 4-6 weeks. Donot raise your arm above shoulder level or stretch for 4-6 weeks) Functional Status Functional Activity Initial Status Discharge Status Rolling Right Level of Assist: Independent with assistive device Assistive Device: siderail Reason for Assist: No assist required Level of assist: Independent Assistive Device: None Reason for Assist: No assist required Rolling Left Level of Assist: Independent with assistive device Assistive Device: siderail Reason for Assist: No assist required Level of Assist: Independent Assistive Device: None Reason for Assist: No assist required Supine to Sit Level of Assist: Contact guard Assistive Device: siderail Reason for Assist: No assist required Assist Level: Independent Assistive Device: None Reason for Assistance: No assist required Sit to Supine Level of Assist: Contact guard Assistive Device: siderail Reason for Assist: Safety Assist Level: Independent Assistive Device: Assistive Device: None Reason for Assistance: No assist required Sit to Stand Level of Assist: Minimal assist Assistive Device: rolling walker Reason for Assist: balance, safety Performed from 20 inch high surface. Assist level: Contact guard Assistive Devices: rolling walker Reason for Assistance: balance and safety Stand to Sit Level of Assist: Contact guard Assistive Device: rolling walker Reason for Assist: safety Assist Level: Contact guard Assistive Device: rolling walker Reason for Assistance : balance and safety Transfers Transfer from: bed Transfer to: chair Level of Assist: Minimal assist Type: stand step Assistive Device: rolling walker Reason for Assist: balance, safety Transfer from: Not Assessed Transfer to: Not Assessed Level of Assist: Not Assessed Type: Not Assessed Assistive Device: Not Assessed Reason for Assist: Not Assessed Transfer Trial 1: Type of Transfer: stand step Performed from wheelchair to bed. Level of Assistance: Contact guard Assistive Device: rolling walker Reason for Assistance: balance and safety Ambulation Level of Assist: Minimal assist Distance: 50 feet Assistive Device: rolling walker Reason for Assist: balance, safety Gait Speed: decreased Distance walked: 160 feet Level of Assistance: Contact guard Assistive Device Used: rolling walker Speed was decreased Reason for Assistance: balance and safety WC Mobility Level of Assist: Not Assessed Distance: Not Assessed WC Type: Not Assessed Method of Propulsion: Not Assessed Reason for Assist: Not Assessed Speed: Not Assessed Distance: 50 feet Performed using Manual wheelchair Method of Propulsion: Bilateral UE's and Bilateral LE's Assist Level: Supervision Speed was decreased Reason for Assistance: safety and cueing for technique Stair Climbing Ascending Level of Assist: Not Assessed Assistive Device: Not Assessed # of Stairs: Not Assessed Descending Level of Assist: Not Assessed Assistive Device: Not Assessed # or Stairs: Not Assessed Ascended 4 stairs of 6 inch height rise Assist Level: Contact guard Assistive Device Used: Two railings Descended 4 stairs of 6 inch height rise Assist Level: Contact guard Assistive Device Used: Two railings Reason for Assistance: balance and safety Goal Outcomes: PT Maintenance Foreman Goals PT FDC GOAL 1: Pt will perform transfers using LRAD modified independent in order to decreaseburden of care UNMET PT FDC GOAL 2: Pt will ambulate at least 200 feet using LRAD with supervision in order to navigate his home and community UNMET PT FDC GOAL 3: Pt will negotiate at least 4 steps using railings with CGA in order to enter/exit the home MET PT FDC GOAL 4: Caregiver will attend family education and demonstrate ability to assist pt with functional mobility for safe discharge home MET Patient's Functional Limitations: Pt further limited by impaired standing balance, impaired activity tolerance, impaired cognition, UE/LE weakness Patient/Caregiver Education: Patient educated on PT plan of care, role of PT and PT goals, lifting/pushing precautions, falls precautions, use of call green, and 3 hour rule, bed mobility, transfers, ambulation, use of assistive devices, stair negotiation Discharge Plan/Recommendations: DME Orders-Mobility #1: Folding rolling walker with 5 inch wheels DME Orders-WC: Patient with medical diagnoses of HTN, CVA, osteoarthritis, OLIVIER, and CKD3. Patient is status post TransCatheter Aortic Valve Replacement . He presents with impaired balance, UE/LE weakness, impaired coordination and impaired activity tolerance which impairs his ability to independently ambulate and perform mobility related daily activities grooming, bathing, feeding, dressing, and toileting in the home. A walker, crutches or a cane will not resolve the issue with performing mobility related activities of daily living. Patient self propels the lightweight wheelchair while engaging in frequent activities such as laundry, toileting, and meals which cannot be performed in a standard weight wheelchair due to the weight of the chair. All rooms will accommodate the wheelchair withthe exception of the bathroom. Pt will require a 22 inch width, 18 inch depth Lightweight manual wheelchair with general use tension adjustable back rest, swing away removable and elevating footrests, seat belt for safety and general use cushion, swing back desk height armrests for UE support and proper positioning, and anti-tippers for safety and prevention of tipping of the wheelchair. Plan for Transition of Care: Physical Therapy Home Health Orders: Home health PT for home safety assessment, cardiovascular endurance, strengthening, balance training Leigha Warren PT, DPT * Anais Mcgovern OTR/Jessica - 02/07/2023 2:31 PM EDT OCCUPATIONAL THERAPY DISCHARGE SUMMARY-REHAB [facility] Discharge Date from OT: 02/07/23 Patient Name:Raghu Rosenthal Age: 77yrs : 1945 Sex: Male Attending Provider: Beverly Nettles,* Rehab Admit Date: 01/26/2023 Precautions: Fall and Cardiac Functional Status: Functional Activity Initial Status Discharge Status Feeding Level of Assist: Independent Reason for Assist:No assist required. Equipment/Technique: None Position: chair 6= Independent/ Modified independence (Quality Indicator Score) Grooming Level of Assist: Set up Reason for Assist:Retrieval of materials Equipment/Technique: no assistive device Position:standing 6= Independent/ Modified independence (Quality Indicator Score) Upper Body Dressing Level of Assist: Minimal assist Reason for Assist:Assist to pull shirt over head Equipment/Technique: no assistive device Position: sitting in chair 6= Independent/ Modified independence (Quality Indicator Score) Lower Body Dressing Level of Assist: Minimal assist Reason for Assist:Assist to thread pullup brief (had put one side on upside down) Equipment/Technique: no assistive device Position: sitting in chair 4= Supervision or touching assistance (Quality Indicator Score) Bathing Upper Body Level of Assist: Set up Lower Body Level of Assist: Contact guard Reason for Assist:Safety/balance in standing Equipment/Technique: no assistive device Position: in chair at sink 4= Supervision or touching assistance (Quality Indicator Score) Toileting Level of Assist: Contact guard Reason for Assist:Balance/safety in standing Equipment/Technique: no assistive device Position: sitting, standing 4= Supervision or touching assistance (Quality Indicator Score) Toilet Transfer Level of Assist: Minimal assist Reason for Assist:Not Assessed Assistive Device: Not applicable 4= Supervision or touching assistance (Quality Indicator Score) Shower/Tub Transfer Level of Assist: Contact guard Reason for Assist:Balance/safety in standing Type: walk-in shower without ledge Equipment/Technique: None Not performed due to patient declining Goal Outcomes: OT Care Home Goals OT FDC GOAL 1: Mr. Rosenthal will get ready for the day (bathing, dressing, grooming, toileting) with supervision and AE/DME as needed while adhering to precautions. MET OT PEER COUNSELOR GOAL 2: Mr. Rosenthal will complete bathroom transfers as in home setup (toilet, tub/shower) with supervision and LRAD while adhering to precautions. MET OT PEER COUNSELOR GOAL 3: Mr. Rosenthal will complete a simple IADL task with supervision while adhering to precautions.MET Patient's Functional Limitations: Mr. Rosenthal is limited by pacemaker precautions, impaired cardiovascular endurance, impaired strength, and impaired standing balance/tolerance. Patient/Caregiver Education: Mr. Rosenthal was educated throughout his stay on safety with ADL, IADL, and functional mobility. His , Cathy, was present intermittently throughout his stay and for family education, and was educated on the same. Disposition: home with , Cathy Discharge Plan/Recommendations: DME Orders-ADL #1: no DME needs. Plan for Transition of Care: Occupational Therapy Home Health Orders: no f/u OT recommended Ruchi Agrawal COTA/JACK Walter/Jessica * Karuna De Oliveira RN - 02/07/2023 2:26 PM EDT At discharge, the patient departed wheelchair with significant other. Raghu Rosenthal was discharged with prescription for medications, belongings and verbalized understanding of all instructions before departure. Discharge Instructions given to patient/caregiver: Yes. Patient describes pain as none at discharge. * Louis Lowe MD - 02/07/2023 1:47 PM EDT [facility] Department of Physical Medicine and Rehabilitation Rehab MD Discharge Summary Patient Name: Raghu Rosenthal Date of Admission: 01/26/2023 [facility] #: [id number] Room #: [id number] : 1945 Referring Physician: Lauren Mcghee MD PCP: Williams Yip MD Date of Discharge: 02/07/23 Final Diagnoses: Adult Impairment Code: 09 - Cardiac Active Hospital Problems Diagnosis Date Noted *Mitral and aortic valve disease 12/29/2022 AMS (altered mental status) 01/21/2023 CKD (chronic kidney disease) stage 3, GFR 30-59 ml/min ([facility]) 01/09/2023 01/08/23 TransCatheter Aortic Valve Replacement (Jxarp-lo-Btden, 26 Medtronic Evolut Pro, via the Left Transfemoral Approach) EF 35% 01/08/2023 Personal history of transient ischemic attack (TIA), and cerebral infarction without residual deficits 01/07/2023 Vitreous degeneration, right eye 12/29/2022 Sensorineural hearing loss, bilateral 12/29/2022 Psoriasis with arthropathy ([facility]) 12/29/2022 Postsurgical aortocoronary bypass status 12/29/2022 Posttraumatic stress disorder 12/29/2022 Obstructive sleep apnea syndrome in adult 12/29/2022 Mild intermittent asthma 12/29/2022 Hypertension 12/28/2022 Hyperlipidemia 12/28/2022 Coronary artery disease 12/28/2022 Diabetes mellitus ([facility]) 05/22/2019 Overview Note: Last Assessment & Plan: A relatively new diagnosis for him. On metformin. A1c's reportedly <7%. Osteoarthritis of both knees 10/08/2018 Subarachnoid hemorrhage (CMS/HCC) 04/22/2012 Overview Note: 2007 Pancreatitis 04/22/2012 Overview Note: 11/05 Possible gallstone pancreatitis. Diverticulitis 04/22/2012 Overview Note: 2005, 2006 S/p surgery Fatty liver 04/22/2012 Former smoker 04/22/2012 GERD (gastroesophageal reflux disease) 04/22/2012 S/P prosthetic total arthroplasty of the hip 04/22/2012 Psoriasis 05/05/2011 Cerebellar stroke syndrome 01/22/2011 Resolved Hospital Problems No resolved problems to display. Follow Up Recommendations 1. PCP: Please ensure patient is set up and followed with Cardiologis after recent AV replacement and HFrEFdue to NSTEMI and GDMT Ensure patient is seen by EP provider for management of Cardiac pacemaker Follow-up vitamin levels as needed Ensure compliance with CPAP Cerebellar CVA- DAPT of 30 days to be completed. Patient may need extended course due CVA 2. PTSD/Depressive Ensure follow-up with [facility] provider for management of chronic PTSD/Depression 3. Groin/Femoral Surgical Site Wound - nystatin powder 4. For hypomagnesemia and hypokalemia: patient discharging on supplementation for both. Will need lab check this week to ensure optimal regimen has been achieved. Follow-up Appointments: Follow-up Information. Follow up With Specialties Details Why Contact Info Doug Valderrama MD Follow up Hospital f/u appointment with PCP has been requested. Confirmed for02/13 at 2:20pm [address] [place] [id number] No future appointments. HPI: On 01/26/[address] Lowe Raghu Rosenthal is a 77yrs old White Male with past medical history of CAD s/p CABG x2 in [place] 10 years ago, HTN, HLD, porcine AVR who initially presented to [facility] ED with complaints of SOB and midchest pressure. Patient lives in [place] with his , and is visiting [facility] for the next 3 months.He recently had a ziopatch placed by the [facility] on 12/27. Following this procedure he had worsening SOB associated with fatigue, malaise and generalized weakness. EMS was called and he was brought to [facility] ED. On arrival he was noted to be in mild respiratory distress and required bipap. WBC of 19. EKG without NUNO, troponin 1.197. CXR consistent with mild interstitial edema, and a small left pleural effusion. He was given nitro sublingual and morphine, and started on BID lovenox. He was admitted to the ICU at [facility]. He was started on empiric vanc, cefepime for possible infection. He was hypotensive requiring levophed with a differential of cardiogenic vs septic shock. He had a repeat EKG done on 12/28 with a new LBBB. His troponin trended as high as 39. Given concerns for acute coronary syndrome, he was transferred to [facility] for further management. On arrival to CICU, patient is awake and alert. He is on low dose levophed. He is warm to the touchand appears well perfused. POCUS with EF visually estimated at 45%. He underwent a R/LHC 12/28/2022 showin. Severe three-vessel disease with patent VOGT to LAD, intermediate stenosis in mid RCA, 60% distal left main stenosis. Culprit for his MD appears to be an occluded SVG to ramus graft. There is flowin the ramus with proximal 70% stenosis. 2. He is also noted to have severely degenerated bioprosthetic aortic valve, invasive gradients reviewed severely stenotic with mean gradient over 40 mmHg. 3. Decompensated heart failure with preserved cardiac output. We had discontinued his Levophed on arrival to the Documentation Specialist. LVEDP 30mmHg Patient was treated for cardiogenic [...] L nasal cannula with weaning as tolerated. Patient returned to acute on 01/21 due to worsening AMS. Patient currently complains of hard stools and difficulty with bowel movements. Otherwise he is doing well. No additional concerns. . Reports he and his are from [place]. They were down in [place] for vacation. He is anxious to get started and ready to get back to [facility]. Patient lives with spouse in a 1 [...] with ambulation for approximately 20ft with RW. Rehab Course: Raghu Rosenthal a 77yrs old Male admitted to [facility] on 12/28/2022 for NSTEMI and valve replacement. Hospital course complicated by respiratory distress and RTA for worsening encephalopathy. Impaired mobility and ADLs - impaired mobility and ADLs resulting from the above and multiple comorbidities, would benefit from rehab for the following: PT: balance, functional mobility, gait training, orthotics/prosthetic training, transfer training, improving strength, improving endurance, wheelchair mobility, education on assistive devices OT: ADLs, iADLs, adaptive equipment training, transfer training 01/08/23 TransCatheter Aortic Valve Replacement (Zvidd-vl-Yoihh, 26 Medtronic Evolut Pro, via the Left [...] lipitor will resume home crestor, ct trilipix - 5/4 per Cardiology, dressing removed from surgical site. Steri-strips intact. Acute encephalopathy- resolved Mental status changes have resolved. Per IM Dr. Head, most likely hospital delirium. - work up from acute: ammonia wnL, Bcx NgTD, no leukocytosis - Urinalysis not obtained in acute CKD stage 3 Baseline creatinine ~ 1.5-1.6 Recent Labs 01/27/23 0306 01/31/23 0842 02/05/23 0834 CREATININE 1.93* 1.60* 1.25 - avoid nephrotoxic agents and renally dose all required medicines - CTM Psoriatic arthropathy Chronic Right shoulder pain OA of bilateral knees - therapies as above - MMPT PTSD Depressive disorder - consult CYLINDER GRINDER - continue lexapro Class 2 Obesity Body mass index is 39.64 kg/m??. - nutrition/security control center operator counseling - DM diet w/o sweets or juice - consider referral [facility] with Dr. Nettles ASthma OLIVIER - cipap while in IPR - continue spiriva and prn albuterol Hx of TIA Cerebellar stroke SAH - therapies as above - DAPT (30 days of plavix) and statin GERD - continue PPI Constipation - 01/29 enema ordered for this evening - 01/30 good BM today with 2x digital stimulation by RN, lactulose also ordered - 01/31 decrease bowel regimen after for 4 Bm's yesterday - 02/05 fibercon added for lots of loose stools Groin/femoral surgical site wound Yeast infection - continue wet to dry, cover with mepilex - 02/01 start nystatin The patient was ready for discharge on 02/07/2023 and all medication changes and follow up [...] all extremtites cold DISCHARGE MEDICATIONS: Medication List START taking these medications Instructions nystatin 100,000 unit/gram Powd Commonly known as: MYCOSTATIN Apply to affected area twice a day. CHANGE how you take these medications Instructions torsemide 60 mg Tab What changed: when to take this Take 60 mg by mouth twice a day at 6 am and 4 pm. CONTINUE taking these medications Instructions aspirin 81 mg Tbec Take 1 Tablet by mouth daily. cholecalciferol 25 mcg (1,000 unit) Tab Commonly known as: VITAMIN D-3 Take 1 Tablet by mouth daily. choline fenofibrate 135 mg Cpdr Commonly known as: TRILIPIX Take 1 Capsule by mouth daily. clopidogreL 75 mg Tab Commonly known as: PLAVIX Take 1 Tablet by mouth daily. escitalopram 20 mg Tab Commonly known as: LEXAPRO Take 1 Tablet by mouth daily. evolocumab 140 mg/mL Pnij Commonly known as: REPATHA SURECLICK Start taking on: February 13, 2023 Give 140 mg subcutaneous every 2 weeks for 90 days. gabapentin 100 mg Cap Commonly known as: NEURONTIN Take 1 Capsule by mouth at bedtime. magnesium oxide 400 mg Tab Commonly known as: MAG-OX Take 1 Tablet by mouth daily. metoprolol succinate XL 25 mg Tb24 Commonly known as: TOPROL-XL Take 1 Tablet by mouth daily. potassium chloride 20 mEq Tbtq Commonly known as: KLOR-CON M20 Take 2 Tablets by mouth daily. spironolactone 25 mg Tab Commonly known as: ALDACTONE Take 1 Tablet by mouth daily. tiotropium bromide 2.5 mcg/actuation Mist Commonly known as: SPIRIVA RESPIMAT INHALE 2 PUFFS BY MOUTH EVERY DAY FOR BREATHING traZODone 50 mg Tab Commonly known as: DESYREL Take 1 Tablet by mouth every evening. STOP taking these medications amLODIPine 10 mg Tab Commonly known as: NORVASC hydroCHLOROthiazide 25 mg Tab Commonly known as: HYDRODIURIL losartan 100 mg Tab Commonly known as: COZAAR Peridex 0.12 % Mwsh Generic drug: chlorhexidine rosuvastatin 20 mg Tab Commonly known as: CRESTOR Pertinent Vitals and Exam on Discharge: Vitals: Temp: 36.7 ??C (98.1 ??F) BP: 114/51 Pulse: 79 Resp: 16 SpO2: 95 % Height: 175.3 cm Weight: 108.4 kg Physical Exam: General: Appears well developed and well nourished. Sitting in chair NAD in the gym Eyes: Eyes anicteric, not injected. Cardiovascular: Extremities well perfused and distal pulses intact, no edema present. RRR Respiratory: Normal work of breathing on room air. cTAB on RA Gastrointestinal: Abdomen soft and nontender Musculoskeletal: no obvious deformities or swelling RUE: 01/26 LUE: 01/26 RLE: 01/26 LLE: 01/26 Neurologic Mental Status: Intact speech and language. Orientation, attention, memory, and fund of knowledge are intact as manifested by the patient's ability to furnish a complete and lucid medical history. Integumentary: Warm and dry. Right femoral/groin surgical wound with malodorous discharge, non tender, left femoral/groin surgical wound with scant blood discharge, non tender. Erythema developing insame area concerning for yeast infection (unseen today) Psychiatric: Mood and behavior normal Discharge Disposition and Recommendations: Disposition: Home Diet Orders (From admission, onward) None Physical Therapy Home Health Orders: Home health PT for home safety assessment, cardiovascular endurance, strengthening, balance training Occupational Therapy Home Health Orders: no f/u OT recommended CC: Pt's Primary Doctor - Williams Yip MD Above providers Louis Lowe MD Physical Medicine and Rehabilitation Associated attestation - Beverly Nettles MD - 02/13/2023 9:55 AM EDT I have seen and examined Mr Rosenthal at the bedside on 02/07/[address] Lowe. I reviewed the history, review of systems and medications outlined in the resident's note. I agree with the physical examination, assessment and plan outlined in the resident's DC note with the following exc eptions/additions/amendments: Provider electronic signature: Beverly Nettles MD Clinical Mule Operator [facility] [employer] [place] [employer] documented in this encounter Medications at Time of Discharge Medication Sig Dispensed Refills Start Date End Date aspirin 81 mg Oral Tablet, Delayed Release (E.C.) Take 1 Tablet by mouth daily. cholecalciferol (VITAMIN D-3) 25 mcg (1,000 unit) Oral Tablet Take 1 Tablet by mouth daily. choline fenofibrate (TRILIPIX) 135 mg Oral Capsule, Delayed Release(E.C.) Take 1 Capsule by mouth daily. clopidogreL (PLAVIX) 75 mg Oral Tablet Take 1 Tablet by mouth daily. 30 Tablet 1 02/07/2023 escitalopram (LEXAPRO) 20 mg Oral Tablet Take 1 Tablet by mouth daily. gabapentin (NEURONTIN) 100 mg Oral Capsule Take 1 Capsule by mouth at bedtime. 30 Capsule 02/07/2023 magnesium oxide (MAG-OX) 400 mg Oral Tablet Take 1 Tablet by mouth daily. 30 Tablet 3 02/07/2023 metoprolol succinate XL (TOPROL-XL) 25 mg Oral Tablet Sustained Release 24HR Take 1 Tablet by mouth daily. 30 Tablet 3 02/07/2023 nystatin (MYCOSTATIN) 100,000 unit/gram Topical Powder Apply to affected area twice a day. 15 g 02/07/2023 potassium chloride (KLOR-CON M20) 20 mEq Oral Tab Sust.Rel. Particle/Crystal Take 2 Tablets by mouth daily. 30 Tablet 3 02/07/2023 spironolactone (ALDACTONE) 25 mg Oral Tablet Take 1 Tablet by mouth daily. tiotropium bromide (SPIRIVA RESPIMAT) 2.5 mcg/actuation Inhalation Mist INHALE 2 PUFFS BY MOUTH EVERY DAY FOR BREATHING 05/12/2022 torsemide 60 mg Oral Tablet Take 60 mg by mouth twice a day at 6 am and 4 pm. 30 Tablet 3 02/07/2023 traZODone (DESYREL) 50 mg Oral Tablet Take 1 Tablet by mouth every evening. 30 Tablet 3 02/07/2023 evolocumab (REPATHA SURECLICK) 140 mg/mL Subcutaneous Pen Injector Give 140 mg subcutaneous every 2 weeks for 90 days. 2 mL 2 02/13/2023 05/14/2023 documented as of this encounter Progress Notes * Tanja, December D, JENN - 02/07/2023 2:00 PM EDT Problem: Occupational Therapy Goal: OT Daily Note Note: OCCUPATIONAL THERAPY DAILY NOTE Patient Name: Raghu Rosenthal Date of :1945 Age: 77yrs Date: 02/07/2023 Session 1: Time In 0930 Time Out 1030 Precautions: Fall and Cardiac Occupational Therapy Maintenance Foreman Goals: LTG Anticipated Completion: by discharge date. OT Care Home Goals OT PEER COUNSELOR GOAL 1: Mr. Rosenthal will get ready for the day (bathing, dressing, grooming, toileting) with supervision and AE/DME as needed while adhering to precautions. OT PEER COUNSELOR GOAL 2: Mr. Rosenthal will complete bathroom transfers as in home setup (toilet, tub/shower) with supervision and LRAD while adhering to precautions OT PEER COUNSELOR GOAL 3: Mr. Rosenthal will complete a simple IADL task with supervision while adhering to precautions Current Occupational Therapy Goals: OT SHORT TERM GOAL 1: Mr. Rosenthal will complete standing trials of at least 6 minutes for increased independence with self care tasks. Anticipated End Date-Goal 1: 02/15/23 OT SHORT TERM GOAL 2: Mr. Rosenthal will complete LB dressing with distant supervision for increased independence with self care tasks Anticipated End Date-Goal 2: 02/15/23 OT SHORT TERM GOAL 3: Mr. Rosenthal will complete foot wear modified independently for increased independence with self care tasks. Anticipated End Date-Goal 3: 02/15/23 OT SHORT TERM GOAL 4: Mr. Rosenthal will complete a toilet transfer with no more than supervision whileadhering to precautions for increased independence with functional mobility Anticipated End Date-Goal 4: 02/15/23 OT SHORT TERM GOAL 5: Mr. Rosenthal will complete a simple IADL task with no verbal cues for adhering to task and problem solving. Anticipated End Date-Goal 5: 02/15/23 OT SHORT TERM GOAL 6: Mr. Rosenthal will participate in therapeutic procedures/activities at least 15 min/day and 3 days/week for increased strength and endurance for ADL, IADL, and functional mobility. Anticipated End Date-Goal 6: 02/15/23 OT SHORT TERM GOAL 7: Mr. Rosenthal will verbalize pacemaker precautions independently. Anticipated End Date-Goal 7: 02/15/23 Subjective: Patient agreeable to treatment session Objective/Assessment: Patient was seated in recliner. He completed the following task seated and standing from the wheelchair at the sink. Patient tolerated session well and was left in the room wifepresent and all needs met upon exiting room Functional Status: Functional Activity Self Care Task Feeding 6= Independent/ Modified independence (Quality Indicator Score) Grooming 6= Independent/ Modified independence (Quality Indicator Score) Upper Body Dressing 6= Independent/ Modified independence (Quality Indicator Score) Lower Body Dressing 4= Supervision or touching assistance (Quality Indicator Score) Bathing 4= Supervision or touching assistance (Quality Indicator Score) Toileting 4= Supervision or touching assistance (Quality Indicator Score) Toilet Transfer 4= Supervision or touching assistance (Quality Indicator Score) Shower/Tub Transfer Not performed due to patient declining Patient missed 30 minutes of OT session due to being discharge home with family support Plan: Discharge home with family support as needed Tanja Ruchi Krystle, PHIPPS/L * Leigha Warren, PT - 02/07/2023 1:45 PM EDT Problem: Physical Therapy Goal: PT Daily Note Note: PHYSICAL THERAPY DAILY NOTE Patient Name: Raghu Rosenthal Date of :1945 Age: 77yrs Date: 02/07/2023 Session 1: Time In 1300 Time Out 1345 Precautions: Fall and Cardiac (No heavy lifting (>10lbs), pushing, or pulling until insertion site is healed for 4-6 weeks. Donot raise your arm above shoulder level or stretch for 4-6 weeks) Physical Therapy Maintenance Foreman Goals LTG Anticipated Completion: by discharge date. PT Care Home Goals PT PEER COUNSELOR GOAL 1: Pt will perform transfers using LRAD modified independent in order to decreaseburden of care PT PEER COUNSELOR GOAL 2: Pt will ambulate at least 200 feet using LRAD with supervision in order to navigate his home and community PT FDC GOAL 3: Pt will negotiate at least 4 steps using railings with CGA in order to enter/exit the home PT PEER COUNSELOR GOAL 4: Caregiver will attend family education and demonstrate ability to assist pt with functional mobility for safe discharge home Current Physical Therapy Goals: PT SHORT TERM GOAL 1: Pt will perform all bed mobility with supervision Anticipated End Date-Goal 1: 02/07/23 PT SHORT TERM GOAL 2: Pt will perform transfers using LRAD with supervision Anticipated End Date-Goal 2: 02/07/23 PT SHORT TERM GOAL 3: Pt will ambulate at least 150 feet using LRAD with CGA Anticipated End Date-Goal 3: 02/07/23 PT SHORT TERM GOAL 4: Pt will negotiate at least 1 six inch step using railings with CGA Anticipated End Date-Goal 4: 02/07/23 PT SHORT TERM GOAL 5: Pt will perform standing balance activity for at least 1 minute with one to no UE support with CGA to reduce fall risk Anticipated End Date-Goal 5: 02/07/23 Subjective: Pt sitting in manual wheelchair upon entering room. present however did not attend treatment session. Pt declined therapy initially reporting he was discharging. Pt only agreeable to finish discharge scoring Objective/Assessment: Car transfer: Pt performed stand step transfer from manual wheelchair to recliner with CGA for balance/safety using RW Pt able to retrieve object from floor from standing position using service delivery management consultant with CGA for safety Ambulation: Pt ambulated 160 feet using RW with CGA for balance/safety over level tile Uneven surface ambulation: Pt ambulated up/down ramp x 2 using RW with CGA for balance/safety Wheelchair mobility: Pt propelled manual wheelchair using bilateral UE's and LE's with supervision 50 feet. Pt required increased cueing for technique DME company brought home wheelchair to room while pt was in gym. Wheelchair is not what therapist ordered for discharge. direct marketing manager informed. At end of session, pt left in recliner. Wheels locked. Call green and personal items in reach. Plan: Discharge home with and home health PT Leigha Warren, PT, DPT * May Guzmán - 02/07/2023 10:54 AM EDT Discharge Note: CM delivered 2nd IMM. Patient's is present to provide transportation. [employer] will deliver RW and WC to bedside. Patient's has payment method. CM verified that the patient's prescriptions were delivered by [facility]. CM unable to link patient to HH PT due to [place]. CM reached out to patient's primary doctor, Dr. Valderrama to discuss his needs for HH PT. Dr. Valderrama to make the referral at patient's follow up appointment on 02/13/2023. CM faxed d/c summary to [phone]. Patient and his are aware. CM assessed patient for transportation issues and depressive symptoms. Hand off report given to JULIA Beckman. No additional CM tasks identified.CM signed off on d/c milestone. May Guzmán, SHEARING MACHINE FEEDER, MACHINE PROGRAMMER-A Inpatient Rehab Volunteer Services Supervisor [facility] [address], [place] [address] E-mail: [email or web address] For Case Management assistance (if unable to reach the primary CM) Sunday through Sunday, Weekends or Holidays 8:30 am-5:00 pm, please page [phone] pager [phone]. For Case Management assistance after 5:00 pm, please call [phone]. * Fabienne Uribe RN - 02/07/2023 5:10 AM EDT Problem: Adult Inpatient Plan of Care Goal: Plan of Care Review Outcome: Ongoing, Progressing Note: Shift summary: Patient alert and oriented x4. No complaints of pain or discomfort thus far. Patient is being educated to use call green for assistance as needed. Bed in low, locked position, andcall green is in reach. Patient is being educated of the need to ask for pain medications to manage pain and prior to therapy or periods of activity so they can participate comfortably. Patient is receiving education about proper methods to keep from developing skin breakdown, including decreasing pressure, cleansing and lubricating skin, and hydration and nutrition. Patient was rounded on throughout the shift by staff members. * Fabienne Uribe RN - 02/07/2023 12:25 AM EDT Problem: Fall Injury Risk Goal: Absence of Fall and Fall-Related Injury Description: Patient will recognize the appropriate safety interventions to prevent falls risks by and be able to state falls risk by 02-20-2023 . Outcome: Ongoing, Progressing Note: Patient needs further education in regards to the safety interventions to prevent falls at this time. This goal is ongoing. 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 A walker, crutches or a cane will not resolve the issue with performing mobility related activities of daily living. The following wheelchair will allow patient to safely perform mobility related daily activities independently on a frequent basis. Patient self propels the wheelchair while engaging in frequent activities such as laundry, toileting, and meals. All rooms will accommodate the wheelchair with the exception of the bathroom. Patient has not expressed unwillingness to use the wheelchair in the home. Pt will spend at least 2 hours per day in the wheelchair performing mobility related activities. Patient demonstrates safety and the cognitive ability to operate the recommended seating system. 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 The pt will require a manual wheelchair with the following specifications: 22 inch width, 18 inch depth Lightweight manual wheelchair with general use tension adjustable backrest, swing away removable and elevating footrests, seat belt for safety and general use cushion, swing back desk height armrests for UE support and proper positioning, and anti-tippers for safety and prevention of tipping of the wheelchair. Yann Fields, [facility] PM&R PGY3 Associated attestation - Beverly Nettles MD - 02/07/2023 8:41 PM EDT ATTENDING PRECEPTOR NOTE The chart was reviewed and the patient was interviewed and examined with the resident Dr. Fields today;02/06/2023. I performed the critical/velasco portions of the service and I agree with the resident's DME manual wheelchair justification as documented. Provider electronic signature: Beverly Nettles MD Clinical Mule Operator [facility] [place] [employer] and [employer] [place] [employer] * Renae Giron RN - 02/06/2023 5:47 PM EDT End Shift Summary: Pt remained A&OX4 and vital signs stable. No acute changes to Neuro status. On room air. No respiratory distress noted. Continent x2. Adequate UO noted. BM noted this shift x3. Worked with PT/OT today. Ambulated using RW with standby assist. Dressing done in his right groin area wet to dry covered with foam. Patient has not had any adverse reactions to any medications or activities. Needs attended. Problem: Adult Inpatient Plan of Care Goal: Plan of Care Review Outcome: Ongoing, Progressing Goal: Patient-Specific Goal (Individualized) Outcome: Ongoing, Progressing Goal: Absence of Hospital-Acquired Illness or Injury Outcome: Ongoing, Progressing Goal: Optimal Comfort and Wellbeing Outcome: Ongoing, Progressing Goal: Readiness for Transition of Care Outcome: Ongoing, Progressing Problem: Fall Injury Risk Goal: Absence of Fall and Fall-Related Injury Description: Patient will recognize the appropriate safety interventions to prevent falls risks by and be able to state falls risk by 02-06-2023 . Outcome: Ongoing, Progressing Goal: Absence of Fall and Fall-Related Injury Outcome: Ongoing, Progressing * May Guzmán - 02/06/2023 4:57 PM EDT Patient was staffed this morning with and Dr. Fields. The plan is for patient to d/ctomorrow if his labs are stable. CM ordered patient's DME through [employer] Rolling Walker LW Manual Wheelchair CM confirmed d/c plan with patient/ via phone. May Guzmán, SHEARING MACHINE FEEDER, MACHINE PROGRAMMER-A Inpatient Rehab Volunteer Services Supervisor [facility] [address], [place] [address] E-mail: [email or web address] For Case Management assistance (if unable to reach the primary CM) Sunday through Sunday, Weekends or Holidays 8:30 am-5:00 pm, please page [phone] pager [phone]. For Case Management assistance after 5:00 pm, please call [phone]. * Kellie Palma OTR/Jessica - 02/06/2023 2:40 PM EDT Problem: Occupational Therapy Goal: OT Daily Note Note: OCCUPATIONAL THERAPY DAILY NOTE Patient Name: Raghu Rosenthal Date of :1945 Age: 77yrs Date: 02/06/2023 Session 1: Time In 1000 Time Out 1100 Session 2: Time In 1410 Time Out 1440 Precautions: Fall and Cardiac Occupational Therapy Maintenance Foreman Goals: LTG Anticipated Completion: by discharge date. OT Care Home Goals OT FDC GOAL 1: Mr. Rosenthal will get ready for the day (bathing, dressing, grooming, toileting) with supervision and AE/DME as needed while adhering to precautions. OT PEER COUNSELOR GOAL 2: Mr. Rosenthal will complete bathroom transfers as in home setup (toilet, tub/shower) with supervision and LRAD while adhering to precautions OT FDC GOAL 3: Mr. Rosenthal will complete a simple IADL task with supervision while adhering to precautions Current Occupational Therapy Goals: OT SHORT TERM GOAL 1: Mr. Rosenthal will complete standing trials of at least 5 minutes for increased independence with self care tasks. Anticipated End Date-Goal 1: 02/08/23 OT SHORT TERM GOAL 2: Mr. Rosenthal will complete LB dressing with supervision for increased independence with self care tasks Anticipated End Date-Goal 2: 02/08/23 OT SHORT TERM GOAL 3: Mr. Rosenthal will complete foot wear with no more than setup for increased independence with self care tasks. Anticipated End Date-Goal 3: 02/08/23 OT SHORT TERM GOAL 4: Mr. Rosenthal will complete a toilet transfer with no more than CGA while adhering to precautions for increased independence with functional mobility Anticipated End Date-Goal 4: 02/08/23 OT SHORT TERM GOAL 5: Mr. Rosenthal will complete a simple IADL task with no more than minimal verbal cues for adhering to task and problem solving. Anticipated End Date-Goal 5: 02/08/23 OT SHORT TERM GOAL 6: Mr. Rosenthal will participate in therapeutic procedures/activities at least 15 min/day and 3 days/week for increased strength and endurance for ADL, IADL, and functional mobility. Anticipated End Date-Goal 6: 02/08/23 OT SHORT TERM GOAL 7: Mr. Rosenthal will verbalize pacemaker precautions with no more than minimal verbal cues. Anticipated End Date-Goal 7: 02/08/23 Subjective: 1000: Howie was agreeable. He was emotional towards later part of session, reporting fear of falling/new situations but pleased with his progress. present for in room portion but not shower transfer. 1410: Howie reports having a lot on his mind in preparation of discharge/coping with current medicalsituation. Objective/Assessment: 1000: Upon arrival of this session, patient sitting on toilet. No c/o pain. Anticipated treatment plan reviewed and patient is agreeable. Toilet Transfer: Level of Assist: 4= Supervision (Quality Indicator Score) Reason for Assist: safety during sit>stand Adaptive Equipment/Alternative Method Used: elevated toilet, safety frame Type of Transfer: ambulating without RW Dressing Upper Body: Level of Assist: 5= Set-up or clean-up assistance (Quality Indicator Score) Reason for Assist: retrieval only Adaptive Equipment/Alternative Method Used: none Position: sitting Dressing Lower Body: Underwear: declined Pants/Skirt: Level of assist: 4= Supervision or touching assistance (Quality Indicator Score). Adaptive equipment/alternative method used: none. Position: sitting/standing Reason for Assist: safety in standing/balance Footwear: Shoes: Level of assist: 4= Supervision (Quality Indicator Score). Adaptive equipment/alternative method used: figure 4. Position: sitting Socks: declined Reason for Assist: safety in leaning forward Grooming: Level of Assist: 6= Independent/ Modified independence (Quality Indicator Score) Reason for Assist: none Adaptive Equipment/Alternative Method Used: none Position: sitting in w/c at sink For DME assessment/discharge planning, patient completed the transfer below with education for safest method and technique: Tub Shower Transfer: Level of Assist: 4= Touching assistance (Quality Indicator Score) Reason for Assist: safety, verbal cues for hand placement/technique/demonstrating Adaptive Equipment/Alternative Method Used: tub transfer bench within a tub shower with grab bars as simulated by home set up Type of Transfer: ambulating Patient reports he may have a tub transfer bench at home, however will confirm with . He is agreeable for using during showering once returning home. declines to order bench at this time, will wait until they arrive home/after traveling. Howie tolerated session well with no desaturations/tachycardia, however limited by endurance, steadiness in standing, and new fear of falling while standing/ambulating. He was receptive to all education and would benefit from completing tub shower transfer again in addition to task modification/energy conservation strategies. SpO2 WNL (>95%), HR elevated to 87bpm after ambulation, no shortness of breath. Upon departure of this session, pt was left sitting within gym, no c/o pain. Handoff provided to HOUSTON Hutson. 1410: handoff from HOUSTON Hutson. Attempted to engage patient in standing endurance/balance task, however after standing for (1) minute he endorsed fatigue. He required supervision for sit<>stand, however limited due to being occupied with thoughts in preparation of discharge and coping with current role changes in his life. Therapist utilized therapeutic use of self to engage patient in conversation regarding communicationwith his family, understanding the healing process, and expectations after discharge while returning towards goal of independence. He completed coordination/reaching task via fishing activity but needing cues to multi task due to verbosity in conversation. Patient appreciative of listening and reported feeling well in regards to discharge home. He completed sit<>stand from wheelchair to stand unsupported and hug , no assist for balance. Upon departure of this session, pt was left sitting in w/c within room, all items within reach, no c/o pain. Handoff provided to CP. Plan: Standing endurance/balance At this time, patient has no DME needs before discharge. Kellie Palma OTR/L * Caryl Barrera, SURVEY INSTRUMENT OPERATOR - 02/06/2023 2:00 PM EDT Problem: Physical Therapy Goal: PT Daily Note Note: PHYSICAL THERAPY DAILY NOTE Patient Name: Raghu Rosenthal Date of :1945 Age: 77yrs Date: 02/06/2023 Session 1: Time In 1115 Time Out 1215 Session 2: Time In 1330 Time Out 1400 Precautions: Fall and Cardiac Physical Therapy Care Home Goals LTG Anticipated Completion: by discharge date. PT Care Home Goals PT FDC GOAL 1: Pt will perform transfers using LRAD modified independent in order to decreaseburden of care PT PEER COUNSELOR GOAL 2: Pt will ambulate at least 200 feet using LRAD with supervision in order to navigate his home and community PT FDC GOAL 3: Pt will negotiate at least 4 steps using railings with CGA in order to enter/exit the home PT PEER COUNSELOR GOAL 4: Caregiver will attend family education and demonstrate ability to assist pt with functional mobility for safe discharge home Current Physical Therapy Goals: PT SHORT TERM GOAL 1: Pt will perform all bed mobility with supervision Anticipated End Date-Goal 1: 02/07/23 PT SHORT TERM GOAL 2: Pt will perform transfers using LRAD with supervision Anticipated End Date-Goal 2: 02/07/23 PT SHORT TERM GOAL 3: Pt will ambulate at least 150 feet using LRAD with CGA Anticipated End Date-Goal 3: 02/07/23 PT SHORT TERM GOAL 4: Pt will negotiate at least 1 six inch step using railings with CGA Anticipated End Date-Goal 4: 02/07/23 PT SHORT TERM GOAL 5: Pt will perform standing balance activity for at least 1 minute with one to no UE support with CGA to reduce fall risk Anticipated End Date-Goal 5: 02/07/23 Subjective: [id number] Pt in / in rehab gym after OT session with Flynn. Pt had no complaints and agreeable to PT. [id number] Pt in hospital bed without complaints agreeable to PT. at bedside. Objective/Assessment: [id number] Transfers: Pt performed stand step transfer to w/c x 3 and to nustep x 1 with rolling walker with CGA for balance and proper technique. Gait: Pt ambulated 110 ft x 2 trials on level surface with rolling walker with increased time with supervision for balance. Stairs: Pt ascended/descended 8-6 stairs with 2 rails with supervision. Nustep: Pt completed 10 minutes with LEs and UEs on level 2 at a decreased speed with no rest break. Pt used nustep for increased generalized strength and activity tolerance. Vitals: HR 78 bpm and O2 sat 97%. Pt left in w/ in hospital room with brakes on. Call green and all needs in reach. JULIA Macdonald present. [phone] Toileting needs: Pt and inquired about how pt should toilet while traveling back home to [place] from [place] if he can't make it to a bathroom. Pt inquired about taking a bedpan with him. Therapist informed pt to attempt to make it to a bathroom safely if possible but if he does not think he will be [place] and able to make it to a bathroom in time then a bedpan in the car may be a good optionor just wearing pull ups with a towel in the seat. Transfer: Pt performed stand turn transfer from hospital bed to / with no assistive device with CGA. LE exss, standing balance, and standing tolerance: Pt stood to peform hamstring curls, mini squats,and marching x 8-13 reps and SLRs about 4 reps bilaterally. Therapist encouraged pt to attempt 10-15 reps for all exss but pt fatigued too quickly. Pt used rolling walker and required supervision to CGA. Pt required a seated rest break in between each different exss. Pt sat in / to perform bilateral LE LAQs and marching 1x10. Pt handed off to Flynn OTR. Plan: Dynamic standing balance, LE strengthening, gait, stairs, transfers Caryl Barrera PTA * Anais Mcgovern, OTR/Jessica - 02/06/2023 12:53 PM EDT OCCUPATIONAL THERAPY WEEKLY SUMMARY Patient Name: Raghu Rosenthal Date: 02/06/2023 PRECAUTIONS Fall and Cardiac FDC GOALS LTG Anticipated Completion: by discharge date. OT PEER COUNSELOR GOAL 1: Mr. Rosenthal will get ready for the day (bathing, dressing, grooming, toileting) with supervision and AE/DME as needed while adhering to precautions. OT PEER COUNSELOR GOAL 2: Mr. Rosenthal will complete bathroom transfers as in home setup (toilet, tub/shower) with supervision and LRAD while adhering to precautions OT PEER COUNSELOR GOAL 3: Mr. Rosenthal will complete a simple IADL task with supervision while adhering to precautions SHORT TERM GOALS Previous Current 01/30/2023 12:29 PM 02/06/2023 12:52 PM Short Term Goals-Previous Week/Current SHORT TERM GOAL 1 MET/UPDATED - Mr. Rosenthal will complete standing trials of at least 5 minutes for increased independence with self care tasks. Mr. Rosenthal will complete standing trials of at least 6 minutes for increased independence with self care tasks. Anticipated End Date 02/08/2023 02/15/2023 SHORT TERM GOAL 2 MET/UPDATED - Mr. Rosenthal will complete LB dressing with supervision for increased independence with self care tasks Mr. Rosenthal will complete LB dressing with distant supervision for increased independence with self care tasks Anticipated End Date 02/08/2023 02/15/2023 SHORT TERM GOAL 3 MET/UPDATED - Mr. Rosenthal will complete foot wear with no more than setup for increased independence with self care tasks. Mr. Rosenthal will complete foot wear modified independently forincreased independence with self care tasks. Anticipated End Date 02/08/2023 02/15/2023 SHORT TERM GOAL 4 MET/UPDATED - Mr. Rosenthal will complete a toilet transfer with no more than CGA while adhering to precautions for increased independence with functional mobility Mr. Rosenthal will complete a toilet transfer with no more than supervision while adhering to precautions for increased independence with functional mobility Anticipated End Date 02/08/2023 02/15/2023 SHORT TERM GOAL 5 MET/UPDATED - Mr. Rosenthal will complete a simple IADL task with no more than minimal verbal cues for adhering to task and problem solving. Mr. Rosenthal will complete a simple IADL task with no verbal cues for adhering to task and problem solving. Anticipated End Date 02/08/2023 02/15/2023 SHORT TERM GOAL 6 MET/ONGOING - Mr. Rosenthal will participate in therapeutic procedures/activities at least 15 min/day and 3 days/week for increased strength and endurance for ADL, IADL, and functional mobility. Mr. Rosenthal will participate in therapeutic procedures/activities at least 15 min/day and 3 d ays/week for increased strength and endurance for ADL, IADL, and functional mobility. Anticipated End Date 02/08/2023 02/15/2023 SHORT TERM GOAL 7 MET/UPDATED - Mr. Rosenthal will verbalize pacemaker precautions with no more than minimal verbal cues. Mr. Rosenthal will verbalize pacemaker precautions independently. Anticipated End Date 02/08/2023 02/15/2023 PROGRESS TOWARD GOALS Raghu Rosenthal has met 7/7 short term occupational therapy goals this week. Limitations/areas we are continuing to address: impaired endurance, impaired standing tolerance/balance, impaired strength, pacemaker precautions, cognition Barriers to d/c: none Hoping to progress to: supervision DME and follow up therapy: no DME needs. No f/u OT. Current functional levels for ADLs: Raghu Rosenthal requires supervision for ADLs, and supervision for functional transfers. CURRENT TREATMENT PLAN OT Interventions: Activities of daily living, Instrumental activities of daily living, Adaptive equipment/DME recommendations, Transfer training, Therapeutic activities, Therapeutic procedures, Neuromuscular reeducation, Cognitive retraining, Patient/Caregiver education, Visual-perceptual retraining OT Intensity (Hours per Day): 1-2 OT Frequency (Days per Week): 5-6 OT Duration: 7-10 days Potential to Achieve OT Goals: Good Patient: has reviewed OT treatment plan., understands OT treatment plan., agrees with OT treatment plan. Family/Caregiver : Family/Caregiver unavailable. JACK Haile/Jessica * Yann Fields, - 02/06/2023 7:28 AM EDT Images from the original note were not included. Department of Physical Medicine and Rehabilitation Rehab Physician Progress Note Raghu Rosenthal, 77yrs Male Admit Date: 01/26/2023 Today's Date: 02/06/2023 Drug Regimen Review Completed: Yes The following clinically significant medication issues were identified over the last 24 hours: See below. Subjective/Interval Events: Patient seen and examined with the attending physician. VSS. MACIAS. Patient eating at 50-0-75%. Denies uncontrolled pain. Pertinent Interval events: Patient cleared for therapies. CT surgery came by yesterday and cleared to return to home with frequent stops. Have reached out to EP yesterday and will have [employer] repscome by for pacemaker today. [employer] rep was able to give home monitoring system and will need EPprovider at home to assist. Will recheck labs in am ensure all electrolytes are in normal range. Patient not taking Voltarin and will d/c order. Patient and family would like to discharge tomorrow home and will do so ensure labs are stable. PCP appointment has been requested and full discussion about going home and safety with family in agreement. Per discussion patient will only need Repatha, Nystatin powder and K from pharmacy as all [facility] No further complaints at this time. Bowel/Bladder last 24 hours: Urine x6/BM x3 NOTE: This document was prepared using a combination of digital dictation and [employer]. Any transcriptional errors that result from this process are unintentional. Full ROS was performed and is otherwise negative unless noted above Objective: Vitals: Temp: 37.1 ??C (98.8 ??F) BP: 112/57 Pulse: 78 Resp: 17 SpO2: 98 % Height: 175.3 cm Weight: 108.4 kg Body mass index is 35.27 kg/m??. Physical Exam: Today's physical exam is unchanged, except for bolded changes below General: Appears well developed and well nourished. Sitting in chair NAD in the gym Eyes: Eyes anicteric, not injected. Cardiovascular: Extremities well perfused and distal pulses intact, no edema present. RRR Respiratory: Normal work of breathing on room air. cTAB on RA Gastrointestinal: Abdomen soft and nontender Musculoskeletal: no obvious deformities or swelling RUE: 01/26 LUE: 01/26 RLE: 01/26 LLE: 01/26 Neurologic Mental Status: Intact speech and language. Orientation, attention, memory, and fund of knowledge are intact as manifested by the patient's ability to furnish a complete and lucid medical history. Integumentary: Warm and dry. . Right femoral/groin surgical wound with malodorous discharge, non tender, left femoral/groin surgical wound with scant blood discharge, non tender. Erythema developing in same area concerning for yeast infection (unseen today) Psychiatric: Mood and behavior normal. All systems above examined with findings unchanged unless otherwise noted Labs: No results for input(s): WBC, HGB, HCT, MCV, PLATELET, BANDEST in the last 72 hours. Invalid input(s): NEUTROPHIL % Recent Labs 02/05/23 0834 SODIUM 135* POTASSIUM 3.4* CHLORIDE 101 BICARBONATE 23 GLUCOSE 123* BUN 32* CREATININE 1.25 CALCIUM 8.5 PHOSPHORUS 2.7 MAGNESIUM 1.4* No results for input(s): GLUCOSE POCT in the last 24 hours. 12/28/2022: Hemoglobin A1C 5.0 % 01/08/2023: Hematocrit 28.2 % (L) 01/12/2023: WBC, Urine 4 /HPF (H) 01/21/2023: Hemoglobin, Urine Negative 01/27/2023: WBC (White Blood Cell Count) 4.24 k/uL (L); Hemoglobin 10.0 g/dL (L); Neutrophils (%) 48 %; MCV (Mean Corpuscular Volume) 97.6 fL; Platelet Count 97 k/uL (L) 12/28/2022: Est Avg Glucose 97 mg/dL 01/21/2023: Glucose, Urine Negative 01/26/2023: Glucose 105 mg/dL (H) 01/27/2023: Sodium 131 mEq/L (L); Potassium 3.5 mEq/L; Chloride 97 mEq/L (L); CO2 24 mEq/L; BUN 58 mg/dL (H); Bun:Creat Ratio 30.05; Creatinine 1.93 mg/dL (H); Glucose 83 mg/dL Radiology reviewed No results found. aspirin, 81 mg, DAILY clopidogreL, 75 mg, DAILY diclofenac sodium, 4 g, QID [Held by Provider] docusate sodium, 100 mg, BID enoxaparin (LOVENOX) injection, 40 mg, DAILY AT 1600 escitalopram, 20 mg, DAILY evolocumab, 140 mg, Q2WKS gabapentin, 100 mg, QHS metoprolol succinate XL, 25 mg, DAILY nystatin, , BID [Held by Provider] polyethylene glycol, 17 g, DAILY potassium chloride, 40 mEq, DAILY psyllium, 1 Packet, DAILY [Held by Provider] senna, 1 Tablet, QPM sodium chloride, 3 mL, Q8HR spironolactone, 25 mg, DAILY tiotropium bromide, 2 Inhalation, RTDAILY torsemide, 60 mg, BID traZODone, 50 mg, QPM acetaminophen tablet, 650 mg, [id number] bisacodyL, 10 mg, DAILY-PRN dextrose, 15 g, PRN dextrose 50% in water, 25 mL, PRN dextrose 50% in water, 50 mL, PRN docusate sodium, 100 mg, DAILY-PRN hydrALAZINE, 25 mg, [id number] loperamide, 2 mg, QID-PRN ondansetron, 4 mg, [id number] ondansetron ODT, 4 mg, [id number]-[id number] oxyCODONE, 5 mg, [id number]-[id number] simethicone, 80 mg, [id number] Assessment/Plan: Raghu Rosenthal a 77yrs old Male admitted to [facility] on 12/28/2022 for NSTEMI and valve replacement. Hospital course complicated by respiratory distress and RTA for worsening encephalopathy. Impaired mobility and ADLs - impaired mobility and ADLs resulting from the above and multiple comorbidities, would benefit from rehab for the following: PT: balance, functional mobility, gait training, orthotics/prosthetic training, transfer training, improving strength, improving endurance, wheelchair mobility, education on assistive devices OT: ADLs, iADLs, adaptive equipment training, transfer training 01/08/23 TransCatheter Aortic Valve Replacement ([id number], 26 Medtronic Evolut Pro, via the Left Transfemoral Approach) EF 35% (01/08/2023) Cardiogenic shock Acute on chronic HFrEF NSTEMI HLD -Therapies as above -U Cardiology following -Strict I's and O's, daily [...] lipitor will resume home crestor, ct trilipix - 01/25 per Cardiology, dressing removed from surgical site. Steri-strips intact. Acute encephalopathy- resolved Mental status changes have resolved. Per IM Dr. Head, most likely hospital delirium. - work up from acute: ammonia wnL, Bcx NgTD, no leukocytosis - Urinalysis not obtained in acute CKD stage 3 Baseline creatinine ~ 1.5-1.6 Recent Labs 01/27/23 0306 01/31/23 0842 02/05/23 0834 CREATININE 1.93* 1.60* 1.25 - avoid nephrotoxic agents and renally dose all required medicines - CTM Psoriatic arthropathy Chronic Right shoulder pain OA of bilateral knees - therapies as above - MMPT PTSD Depressive disorder - consult CYLINDER GRINDER - continue lexapro Class 2 Obesity Body mass index is 39.64 kg/m??. - nutrition/security control center operator counseling - DM diet w/o sweets or juice - consider referral [facility] with Dr. Nettles ASthma OLIVIER - cipap while in IPR - continue spiriva and prn albuterol Hx of TIA Cerebellar stroke SAH - therapies as above - DAPT (30 days of plavix) and statin GERD - continue PPI Constipation - 01/29 enema ordered for this evening - 01/30 good BM today with 2x digital stimulation by RN, lactulose also ordered - 01/31 decrease bowel regimen after for 4 Bm's yesterday - 02/05 fibercon added for lots of loose stools Groin/femoral surgical site wound Yeast infection - continue wet to dry, cover with mepilex - 02/01 start nystatin DVT Prophylaxis: lovenox GI Prophylaxis: PPI Diet: cardiac/renal Bowel Regimen: 01/27 increased colace to 200 mg bid, started MiraLAX and senna on 01/28 Code status was discussed with the patient and the patient is Full code Estimated date of Discharge: 7-10 Days Rehabilitation Potential: good Discharge Destination: Home with caregiver support Skin: No Pressure injury/ulcer Pressure Ulcer Risk Conditions: none Yann Fields, Associated attestation - Beverly Nettles MD - 02/07/2023 8:40 PM EDT ATTENDING PRECEPTOR NOTE The chart was reviewed and the patient was interviewed and examined with the resident Dr. Fields today;02/06/2023. I performed the critical/velasco portions of the service and agree with the rehab assessment and plan of care that we discussed as documented. Provider electronic signature: Beverly Nettles MD Clinical Mule Operator [facility] [employer] [place] [employer] and [employer] [place] [employer] Medicine * Jacob Dunlap RN - 02/06/2023 4:39 AM EDT Problem: Adult Inpatient Plan of Care Goal: Plan of Care Review Outcome: Ongoing, Progressing Plan of Care Reviewed With: patient Note: Shift summary: Patient alert and oriented x4. No complaints of pain or discomfort thus far. Continent vs incontinent of bowel this shift. Patient has been continent of urine. Patient continues mag sulfate as ordered. Dressing to right groin remains dry and intact and was changed on day shift.Patient continues bed alarms but has not been impulsive thus far. Patient is being educated to use call green for assistance as needed. Bed in low, locked position, and call green is in reach. Patient is being educated of the need to ask for pain medications to manage pain and prior to therapy or periods of activity so they can participate comfortably. Patient is receiving education about proper methods to keep from developing skin breakdown, including decreasing pressure, cleansing and lubricating skin, and hydration and nutrition. Patient was rounded on throughout the shift by staff members. * Nubia Rosario RCP - 02/05/2023 10:25 PM EDT Pt stated he had his home machine taken home because he is going home tomorrow. This RT did not seehis machine in room. He denies need for hospital machine. Pt's WOB remains stable on RA. Pt was left awake, alert and in NAD. * Leigha Warren PT - 02/05/2023 9:43 PM EDT Patient with medical diagnoses of HTN, CVA, osteoarthritis, OLIVIER, and CKD3. Patient is status post TransCatheter Aortic Valve Replacement . He presents with impaired balance, UE/LE weakness, impaired coordination and impaired activity tolerance which impairs his ability to independently ambulate andperform mobility related daily activities grooming, bathing, feeding, dressing, and toileting in the home. A walker, crutches or a cane will not resolve the issue with performing mobility related activities of daily living. Patient self propels the lightweight wheelchair while engaging in frequent activities such as laundry, toileting, and meals which cannot be performed in a standard weight wheelchair due to the weight of the chair. All rooms will accommodate the wheelchair with the exception of the bathroom. Pt will require a 22 inch width, 18 inch depth Lightweight manual wheelchair with general use tension adjustable back rest, swing away removable and elevating footrests, seat belt forsafety and general use cushion, swing back desk height armrests for UE support and proper positioning, and anti-tippers for safety and prevention of tipping of the wheelchair. * Jacob Dunlap RN - 02/05/2023 8:36 PM EDT Problem: Fall Injury Risk Goal: Absence of Fall and Fall-Related Injury Description: Patient will recognize the appropriate safety interventions to prevent falls risks by and be able to state falls risk by 02-06-2023 . Outcome: Ongoing, Progressing Note: Patient needs further education in regards to the safety interventions to prevent falls at this time. This goal is ongoing. * Fatou Collazo ANP - 02/05/2023 3:00 PM EDT Patient seen in rehab for structural heart. Incisions all intact and without signs or symptoms of hematoma or infection. Patient planning for dc back to [place] in 48 hours. Will need to stop frequently and ambulate. Fatou Collazo MSN, ANP-[facility] Cardiac Surgery Team Personal pager [phone] Service Pager [phone] * Earline Kirk, OTR/L - 02/05/2023 12:22 PM EDT Problem: Occupational Therapy Goal: OT Daily Note Note: OCCUPATIONAL THERAPY DAILY NOTE Patient Name: Raghu Rosenthal Date of :1945 Age: 77yrs Date: 02/05/2023 Session 1: Time In 9:00 Time Out 10:00 Precautions: Fall Occupational Therapy Care Home Goals: LTG Anticipated Completion: by discharge date. OT Maintenance Foreman Goals OT FDC GOAL 1: Mr. Rosenthal will get ready for the day (bathing, dressing, grooming, toileting) with supervision and AE/DME as needed while adhering to precautions. OT PEER COUNSELOR GOAL 2: Mr. Rosenthal will complete bathroom transfers as in home setup (toilet, tub/shower) with supervision and LRAD while adhering to precautions OT PEER COUNSELOR GOAL 3: Mr. Rosenthal will complete a simple IADL task with supervision while adhering to precautions Current Occupational Therapy Goals: OT SHORT TERM GOAL 1: Mr. Rosenthal will complete standing trials of at least 5 minutes for increased independence with self care tasks. Anticipated End Date-Goal 1: 02/08/23 OT SHORT TERM GOAL 2: Mr. Rosenthal will complete LB dressing with supervision for increased independence with self care tasks Anticipated End Date-Goal 2: 02/08/23 OT SHORT TERM GOAL 3: Mr. Rosenthal will complete foot wear with no more than setup for increased independence with self care tasks. Anticipated End Date-Goal 3: 02/08/23 OT SHORT TERM GOAL 4: Mr. Rosenthal will complete a toilet transfer with no more than CGA while adhering to precautions for increased independence with functional mobility Anticipated End Date-Goal 4: 02/08/23 OT SHORT TERM GOAL 5: Mr. Rosenthal will complete a simple IADL task with no more than minimal verbal cues for adhering to task and problem solving. Anticipated End Date-Goal 5: 02/08/23 OT SHORT TERM GOAL 6: Mr. Rosenthal will participate in therapeutic procedures/activities at least 15 min/day and 3 days/week for increased strength and endurance for ADL, IADL, and functional mobility. Anticipated End Date-Goal 6: 02/08/23 OT SHORT TERM GOAL 7: Mr. Rosenthal will verbalize pacemaker precautions with no more than minimal verbal cues. Anticipated End Date-Goal 7: 02/08/23 Subjective: Patient agreeable to therapy. Objective/Assessment: Patient's present for family education. Patient seated in recliner upon therapist entry to room. He performed sit to stand and ambulated within room to w/c with CGA and r/w. Transported patient via w/c to shower in a different room secondary to room shower to [facility] (in ASC). Grooming: Level of Assist: setup Reason for Assist: handing items to patient Adaptive Equipment/Alternative Method Used: none Position: seated in w/c Dressing Upper Body: Level of Assist: setup Reason for Assist: handing item to patient Adaptive Equipment/Alternative Method Used: none Position: seated in w/c Dressing Lower Body: Underwear/pants: Level of assist: min A. Adaptive equipment/alternative method used: none. Position: seated/standing Socks/Shoes: Level of assist: max A. Adaptive equipment/alternative method used: none. Position: seated Reason for Assist: assist to thread shorts over RLE, safety with standing Bathing: Level of Assist: min A Reason for Assist: feet and thoroughness for cleaning buttocks Adaptive Equipment/Alternative Method Used: none Position: seated on tub transfer bench in shower; standing briefly while washing buttocks; holding to grab bar Shower/Tub Transfer: Level of Assist: CGA Reason for Assist: safety, balance Adaptive Equipment/Alternative Method Used: bench, grab bars, long handled nozzle Type of Transfer: stand step Patient performed stand step transfers to/from tub transfer bench, w/c (multiple times), recliner and chair with CGA. Education provided during session on safety during ADL tasks, safety during transfers, pacemaker precautions, fall prevention and home safety, and DME recommendations for shower/tub. Patient's reports they will wait until getting back home to get DME for bathroom. Patient seated in w/c with spouse in courtyard upon departure. RN notified. Plan: Continue plan of care. Earline Kirk, OTR/L * Arielle May - 02/05/2023 12:12 PM EDT CM was notified by CLINICAL CARE MANAGER that patient inquired about early d/c. CM met with patient and his to clarify his wishes. Patient advised that he wanted to d/c today. Patient's also indicates that all his cardio follow up care will need to be scheduled in [place] where the patient lives. CM requested the name of patient's examiner of currency. Patient's providedCM with the name and information for patient's primary doctor and examiner of currency in [place]. PCP: Dr Valderrama/[place], [place]/[phone] [facility] ([place], [place]) PCP: Dr. Mckenzie Electrotyper Apprentice: Dr. Mary Weber MD [phone] CM consulted with PT, Leigha Warren regarding patient's readiness to d/c. Kelvin stated that it was not ideal, but she would not oppose. CM presented patient's requests to Dr. Nettles and Dr. Fields, the resident covering for Dr. Lowe. The two would not amend patient's d/c date. Patient will be huddled on tomorrow after PCC. CM let patient and his know that the physicians did not feel comfortable changing his d/c dateat this time. CM will follow up tomorrow. May Guzmán, SHEARING MACHINE FEEDER, MACHINE PROGRAMMER-A Inpatient Rehab Volunteer Services Supervisor [address] [id number] E-mail: [email or web address] For Case Management assistance (if unable to reach the primary CM) Sunday through Sunday, Weekends or Holidays 8:30 am-5:00 pm, please page [phone] pager [phone]. For Case Management assistance after 5:00 pm, please call [phone]. * Melva Craft CCC-CLINICAL CARE MANAGER - 02/05/2023 12:08 PM EDT SPEECH THERAPY DISCHARGE SUMMARY Patient Name: Raghu Rosenthal Date: 02/05/2023 PRECAUTIONS Fall, Cardiac, and no pacemaker (no lifting >10lb, do not push/pull, do not raise arm above shoulder level) FDC GOALS LTG Anticipated Completion: by discharge date. SPEECH THERAPY PEER COUNSELOR GOAL 1: Patient will exhibit increased attention, recall, thought organization, inference, and calculation for completion of daily tasks given min assist from caregivers for verbal cues and increased time. NOT MET 02/05/23 SHORT TERM GOALS Previous Current 02/02/2023 3:03 PM Short Term Goals-Previous Week/Current SHORT TERM GOAL 1 NOT MET Patient will complete auditory/visual attention tasks with 80% accuracy given mod assist for repetition, verbal/visual cues, choice of 2, and increased time. Anticipated End Date 02/08/2023 SHORT TERM GOAL 2 NOT MET Patient will recall functional auditory information (3/4 WRAP, 3/4 list, therapies, schedule, precautions, appointments) immediately and upon 10 min delay with 80% accuracy given mod assist for repetition, verbal/visual cues, choice of 2, and increased time. Anticipated End Date 02/08/2023 SHORT TERM GOAL 3 NOT MET Patient will recall 4-5 sentence paragraphs immediately and upon 10 min delay with 80% accuracy given mod assist for repetition, verbal/visual cues, choice of 2, and increased time. Anticipated End Date 02/08/2023 SHORT TERM GOAL 4 NOT MET Patient will order 4 semantically related words with 80% accuracy given mod assist for repetition, verbal/visual cues, choice of 2, and increased time. Anticipated End Date 02/08/2023 SHORT TERM GOAL 5 NOT MET Patient will complete auditory/visual inference tasks with 80% accuracy given mod assist for repetition, verbal/visual cues, choice of 2, and increased time. Anticipated End Date 02/08/2023 SHORT TERM GOAL 6 NOT MET Patient will complete simple time/medication/money management tasks with 80% accuracy given mod assist for repetition, verbal/visual cues, choice of 2, use of external aids,and increased time. Anticipated End Date 02/08/2023 DISCHARGE FUNCTIONAL STATUS Discharge Diagnosis of Cognitive Deficits: Mr. Rosenthal was initially assessed 02/02/23 and exhibits a mild Cognitive- Communicative Disorder, characterized by reduced attention, recall, verbal reasoning, calculation, and some executive functioning. He was initially agreeable to receiving treatment and endorsed cognitive deviation from baseline. However, during family education session completed this date 02/05/23, pt stated the opposite and that he does not desire ST services as he is at his baseline. Provided full education session regarding purpose and benefits of cognitive- communicative treatment to allow pt and pt's to make an informed decision. Pt's endorsed pt being near/at cognitive baseline and that he does struggle with Dyslexia at baseline, which reported affects how he thinks and does things. Given this report, d/c from ST services is warranted at this time. However, it should be noted that pt continues to present with same deficits and will benefit from assistance from caregiver for completion of daily tasks. Patient's Limitations: The patient continues to be limited by reduced attention, recall, thought organization, and reasoning. Patient/Caregiver Education: Mr. Rosenthal and his Cathy were provided with testing results, goals, progress and cognitive communicative strategies and have verbalized appropriate cueing strategies and have returned demonstration successfully. Patient's family present for session indicate they will be able to provide support and assist patient with daily tasks and managing medications and finances. Discharge Plan/Recommendations: Discharge Destination: Home with Family/Relatives It is recommended patient have 24/7 direct supervision when home at discharge due to noted deficitsas listed above in Patient's Limitations, and for safety reasons. Plan for Transition of Care: No ST services warranted at this time. Pt to d/c Sunday02/09/23. KATHRYN FinneganCLINICAL CARE MANAGER * Melva Craft CCC-CLINICAL CARE MANAGER - 02/05/2023 12:00 PM EDT Problem: Speech Therapy Goal: Speech Therapy Daily Note Note: SPEECH THERAPY DAILY NOTE Patient Name: Raghu Rosenthal Date of :1945 Age: 77yrs Date: 02/05/2023 Session 1: Time In 1100 Time Out 1200 Precautions: Fall, Cardiac, and no pacemaker (no lifting >10lb, do not push/pull, do not raise arm above shoulder level) Speech Therapy Care Home Goals: LTG Anticipated Completion: by discharge date. Speech Therapy Maintenance Foreman Goals SPEECH THERAPY FDC GOAL 1: Patient will exhibit increased attention, recall, thought organization, inference, and calculation for completion of daily tasks given min assist from caregivers for verbal cues and increased time. Current Speech Therapy Goals: Speech Therapy Short Term Goals SPEECH SHORT TERM GOAL 1: Patient will complete auditory/visual attention tasks with 80% accuracy given mod assist for repetition, verbal/visual cues, choice of 2, and increased time. Anticipated End Date-Goal 1: 02/08/23 SPEECH SHORT TERM GOAL 2: Patient will recall functional auditory information (3/4 WRAP, 3/4 list, therapies, schedule, precautions, appointments) immediately and upon 10 min delay with 80% accuracy given mod assist for repetition, verbal/visual cues, choice of 2, and increased time. Anticipated End Date-Goal 2: 02/08/23 SPEECH SHORT TERM GOAL 3: Patient will recall 4-5 sentence paragraphs immediately and upon 10 min delay with 80% accuracy given mod assist for repetition, verbal/visual cues, choice of 2, and increased time. Anticipated End Date-Goal 3: 02/08/23 SPEECH SHORT TERM GOAL 4: Patient will order 4 semantically related words with 80% accuracy given mod assist for repetition, verbal/visual cues, choice of 2, and increased time. Anticipated End Date-Goal 4: 02/08/23 SPEECH SHORT TERM GOAL 5: Patient will complete auditory/visual inference tasks with 80% accuracy given mod assist for repetition, verbal/visual cues, choice of 2, and increased time. Anticipated End Date-Goal 5: 02/08/23 SPEECH SHORT TERM GOAL 6: Patient will complete simple time/medication/money management tasks with 80% accuracy given mod assist for repetition, verbal/visual cues, choice of 2, use of external aids,and increased time. Anticipated End Date-Goal 6: 02/08/23 Subjective: Patient seated in recliner upon arrival, no c/o pain, Cathy present, both agreeable for familyeducation session. Pt perseverating on returning home and stated he no longer thinks he needs ST after being agreeable to ST services on Sunday. Discussed with Cathy, who stated that he is near/at his cognitive baseline, and does have hx of dyslexia which affects how he thinks and does things. Objective/Assessment: Provided education regarding cognitive-communicative assessment, findings, and goals. Pt endorsed having difficulty with recall, but also stated this date that if he is not interested in the subject then he does not care to remember information. stated that she takes care of the finances and that she and pt jointly sort medications once a week to facilitate improved management skills. Pt states that his is very smart and largely assists him with day to day tasks as needed. After being provided full education session regarding purpose and benefits of cognitive-communicative treatment, pt and pt's continue to report of being at/near cognitive baseline/no longer wanting ST services, so will plan to d/c from ST services at this time. However, it is to be noted that deficits noted upon initial assessment remain (attention, short-term recall, thought organization, some reasoning) and will benefit from repetition, verbal/visual cues, and increased time. Pt states that he learns best with visual examples. Pt will likely require 24/7 assistance upon d/c home, stated she will be able to provide and states that she sees him doing much better than before. At the end of session pt's had questions regarding discharge, relayed information to KATHY Olvera. Pt remained in recliner, phone/call green within reach, and all needs met. Handoff to JULIA Castro. Plan: Discharge from ST services. Note to follow. Melva Craft CCC-CLINICAL CARE MANAGER * Leigha Warren, PT - 02/05/2023 11:00 AM EDT Problem: Physical Therapy Goal: PT Daily Note Note: PHYSICAL THERAPY DAILY NOTE Patient Name: Raghu Rosenthal Date of :1945 Age: 77yrs Date: 02/05/2023 Session 1: Time In 1000 Time Out 1100 Precautions: Fall and Cardiac Physical Therapy Care Home Goals LTG Anticipated Completion: by discharge date. PT Maintenance Foreman Goals PT PEER COUNSELOR GOAL 1: Pt will perform transfers using LRAD modified independent in order to decreaseburden of care PT FDC GOAL 2: Pt will ambulate at least 200 feet using LRAD with supervision in order to navigate his home and community PT PEER COUNSELOR GOAL 3: Pt will negotiate at least 4 steps using railings with CGA in order to enter/exit the home PT FDC GOAL 4: Caregiver will attend family education and demonstrate ability to assist pt with functional mobility for safe discharge home Current Physical Therapy Goals: PT SHORT TERM GOAL 1: Pt will perform all bed mobility with supervision Anticipated End Date-Goal 1: 02/07/23 PT SHORT TERM GOAL 2: Pt will perform transfers using LRAD with supervision Anticipated End Date-Goal 2: 02/07/23 PT SHORT TERM GOAL 3: Pt will ambulate at least 150 feet using LRAD with CGA Anticipated End Date-Goal 3: 02/07/23 PT SHORT TERM GOAL 4: Pt will negotiate at least 1 six inch step using railings with CGA Anticipated End Date-Goal 4: 02/07/23 PT SHORT TERM GOAL 5: Pt will perform standing balance activity for at least 1 minute with one to no UE support with CGA to reduce fall risk Anticipated End Date-Goal 5: 02/07/23 Subjective: Pt sitting in manual wheelchair in courtyard. present. Pt denied any pain and agreed to work with therapy Objective/Assessment: Transfers Pt performed stand step transfer to/from manual wheelchair and toilet; and from manual wheelchair to recliner with CGA for balance/safety using RW Car transfer: Pt performed stand step transfer to/from manual wheelchair and home truck with CGA for balance/safety using RW Ambulation: -pt ambulated 100 feet using RW with CGA for balance/safety over level tile. Distance limited due to fatigue -pt ambulated 40 feet using no assistive device. Pt demonstrated increased medical/lateral instability without assistive device. Per pt with slight waddle at baseline due to bad hips. She reported feeling he is slightly more unsteady now and not completely back to baseline Toileting: Pt required minimal assist for clothing management, set up assist to wash hands (CGA forstanding balance while washing hands), and was independent with performing hygiene in sitting reported being comfortable with assisting pt with mobility. She declined need to re-demonstrate guarding technique educated on the following: - need for frequent stops during ride home due to increased risk for blood clots. -removal of clutter or trip hazards in the home to prevent falls -pt should continue to use RW for safety At end of session, pt left in recliner. Wheels locked. Call green and personal items in reach Plan: Standing LE exercises Leigha Warren, PT, DPT * Yann Fields, DO - 02/05/2023 7:23 AM EDT Images from the original note were not included. Department of Physical Medicine and Rehabilitation Rehab Physician Progress Note Raghu Rosenthal, 77yrs Male Admit Date: 01/26/2023 Today's Date: 02/05/2023 Drug Regimen Review Completed: Yes The following clinically significant medication issues were identified over the last 24 hours: See below. Subjective/Interval Events: Patient seen and examined with the attending physician. VSS. NAEON. Patient eating at 100%. Denies uncontrolled pain. Pertinent Interval events: Patient cleared for therapies. As patient on aggressive diuretic management, BMP obtained showing K of 3.4 and Mag of 1.4 of which we will replace today. Educated patient to stay on 2L fluid restrict to avoid volume overload. Patient with excessive BM at 6 times yesterdayand will hold BM regimen and start fiber with prn imodium for diarrhea. Will reach out to CT surgery, EP team regarding management as he is scheduled to return to [place] and will most likely not follow-up in [place]. No further complaints at this time. Bowel/Bladder last 24 hours: Urine x11/BM x6 NOTE: This document was prepared using a combination of digital dictation and [employer]. Any transcriptional errors that result from this process are unintentional. Full ROS was performed and is otherwise negative unless noted above Objective: Vitals: Temp: 36.7 ??C (98 ??F) BP: 123/61 Pulse: 91 Resp: 16 SpO2: 94 % Height: 175.3 cm Weight: 108.4 kg Body mass index is 35.27 kg/m??. Physical Exam: Today's physical exam is unchanged, except for bolded changes below General: Appears well developed and well nourished. Sitting in chair NAD Eyes: Eyes anicteric, not injected. Cardiovascular: Extremities well perfused and distal pulses intact, no edema present. RRR Respiratory: Normal work of breathing on room air. cTAB Gastrointestinal: Abdomen soft and nontender Musculoskeletal: no obvious deformities or swelling RUE: 01/26 LUE: 01/26 RLE: 01/26 LLE: 01/26 Neurologic Mental Status: Intact speech and language. Orientation, attention, memory, and fund of knowledge are intact as manifested by the patient's ability to furnish a complete and lucid medical history. Integumentary: Warm and dry. . Right femoral/groin surgical wound with malodorous discharge, non tender, left femoral/groin surgical wound with scant blood discharge, non tender. Erythema developing in same area concerning for yeast infection (unseen today) Psychiatric: Mood and behavior normal. All systems above examined with findings unchanged unless otherwise noted Labs: No results for input(s): WBC, HGB, HCT, MCV, PLATELET, BANDEST in the last 72 hours. Invalid input(s): NEUTROPHIL % Recent Labs 02/02/231930 GLUCOSE 91 No results for input(s): GLUCOSE POCT in the last 24 hours. 12/28/2022: Hemoglobin A1C 5.0 % 01/08/2023: Hematocrit 28.2 % (L) 01/12/2023: WBC, Urine 4 /HPF (H) 01/21/2023: Hemoglobin, Urine Negative 01/27/2023: WBC (White Blood Cell Count) 4.24 k/uL (L); Hemoglobin 10.0 g/dL (L); Neutrophils (%) 48 %; MCV (Mean Corpuscular Volume) 97.6 fL; Platelet Count 97 k/uL (L) 12/28/2022: Est Avg Glucose 97 mg/dL 01/21/2023: Glucose, Urine Negative 01/26/2023: Glucose 105 mg/dL (H) 01/27/2023: Sodium 131 mEq/L (L); Potassium 3.5 mEq/L; Chloride 97 mEq/L (L); CO2 24 mEq/L; BUN 58 mg/dL (H); Bun:Creat Ratio 30.05; Creatinine 1.93 mg/dL (H); Glucose 83 mg/dL Radiology reviewed No results found. aspirin, 81 mg, DAILY clopidogreL, 75 mg, DAILY diclofenac sodium, 4 g, QID docusate sodium, 100 mg, BID enoxaparin (LOVENOX) injection, 40 mg, DAILY AT 1600 escitalopram, 20 mg, DAILY evolocumab, 140 mg, Q2WKS gabapentin, 100 mg, QHS metoprolol succinate XL, 25 mg, DAILY nystatin, , BID polyethylene glycol, 17 g, DAILY potassium chloride, 40 mEq, DAILY senna, 1 Tablet, QPM sodium chloride, 3 mL, Q8HR spironolactone, 25 mg, DAILY tiotropium bromide, 2 Inhalation, RTDAILY torsemide, 60 mg, BID traZODone, 50 mg, QPM acetaminophen tablet, 650 mg, [id number] bisacodyL, 10 mg, DAILY-PRN dextrose, 15 g, PRN dextrose 50% in water, 25 mL, PRN dextrose 50% in water, 50 mL, PRN docusate sodium, 100 mg, DAILY-PRN hydrALAZINE, 25 mg, [id number] ondansetron, 4 mg, [id number]-[id number] ondansetron ODT, 4 mg, [id number]-SGR oxyCODONE, 5 mg, [id number]-QAB simethicone, 80 mg, C1SJ-[id number] Assessment/Plan: Raghu Rosenthal a 77yrs old Male admitted to [facility] on 12/28/2022 for NSTEMI and valve replacement. Hospital course complicated by respiratory distress and RTA for worsening encephalopathy. Impaired mobility and ADLs - impaired mobility and ADLs resulting from the above and multiple comorbidities, would benefit from rehab for the following: PT: balance, functional mobility, gait training, orthotics/prosthetic training, transfer training, improving strength, improving endurance, wheelchair mobility, education on assistive devices OT: ADLs, iADLs, adaptive equipment training, transfer training 01/08/23 TransCatheter Aortic Valve Replacement ([id number], 26 Medtronic Evolut Pro, via the Left [...] lipitor will resume home crestor, ct trilipix - 5/ per Cardiology, dressing removed from surgical site. Steri-strips intact. Acute encephalopathy- resolved Mental status changes have resolved. Per IM Dr. Head, most likely hospital delirium. - work up from acute: ammonia wnL, Bcx NgTD, no leukocytosis - Urinalysis not obtained in acute CKD stage 3 Baseline creatinine ~ 1.5-1.6 Recent Labs 01/26/23 0456 01/27/23 0306 01/31/23 0842 CREATININE 2.01* 1.93* 1.60* - avoid nephrotoxic agents and renally dose all required medicines - CTM Psoriatic arthropathy Chronic Right shoulder pain OA of bilateral knees - therapies as above - MMPT PTSD Depressive disorder - consult CYLINDER GRINDER - continue lexapro Class 2 Obesity Body mass index is 39.64 kg/m??. - nutrition/security control center operator counseling - DM diet w/o sweets or juice - consider [facility] with Dr. Nettles ASthma OLIVIER - cipap while in IPR - continue spiriva and prn albuterol Hx of TIA Cerebellar stroke SAH - therapies as above - DAPT (30 days of plavix) and statin GERD - continue PPI Constipation - 01/29 enema ordered for this evening - 01/30 good BM today with 2x digital stimulation by RN, lactulose also ordered - 01/31 decrease bowel regimen after for 4 Bm's yesterday - 02/05 fibercon added for lots of loose stools Groin/femoral surgical site wound Yeast infection - continue wet to dry, cover with mepilex - 02/01 start nystatin DVT Prophylaxis: lovenox GI Prophylaxis: PPI Diet: cardiac/renal Bowel Regimen: 01/27 increased colace to 200 mg bid, started MiraLAX and senna on 01/28 Code status was discussed with the patient and the patient is Full code Estimated date of Discharge: 7-10 Days Rehabilitation Potential: good Discharge Destination: Home with caregiver support Skin: No Pressure injury/ulcer Pressure Ulcer Risk Conditions: none Yann Fields DO Associated attestation - Beverly Nettles MD - 02/05/2023 6:59 PM EDT ATTENDING PRECEPTOR NOTE The patient was seen with the resident today;02/05/2023. I performed the critical/velasco portions of the service and agree with the rehab assessment and plan of care that we discussed as documented with my highlights/additions below: Provider electronic signature: Beverly Nettles MD Clinical Mule Operator [facility] [place] [employer] and [employer] [place] [employer] * Princess Murrieta RN - 02/05/2023 6:26 AM EDT End of shift report: Patient has had an uneventful night.There are no changes from last night's assessment. No complaints of pain overnight.Patient has not had any adverse reactions to any medications or activities during this shift.Patient is resting comfortably in bed. I will continue to monitor. * Princess Murrieta RN - 02/04/2023 8:00 PM EDT Received report from JULIA Henson and assumed care of patient. Assessment completed. See docflow sheet. Patient resting with no complaints of pain.IV WNL.Neurovascular status intact.Denies other needsat this time. Bed in low lock position with call green in reach. Patient encouraged to call out withany needs. On video monitoring. All safety equipment checked - including tubing, suction, and ambu bag/mask. * Es Hatfield RN - 02/04/2023 6:03 PM EDT Shift summary: Patient alert and oriented x 4, at bedside this shift, no reports of pain this shift, tolerating diet well, takes medications whole without difficulty, continent of bowel and bladder, last BM 02/04, dressing changed this shift per order, no prn medications given this shift. Bed in low, locked position, and call green is in reach. Bed alarm on. Gait belt and non-skid socks/footwear on if getting out of bed with staff. Patient received education on medications given throughout this shift. Patient is also receiving education about proper methods to prevent any skin breakdown. Hourly rounding performed throughout shift by RN and care aid. Will report to oncoming shift. * Mathew Lindo MD - 02/04/2023 1:01 PM EDT Images from the original note were not included. Department of Physical Medicine and Rehabilitation Rehab Physician Progress Note Raghu Rosenthal, 77yrs Male Admit Date: 01/26/2023 Today's Date: 02/04/2023 Drug Regimen Review Completed: Yes The following clinically significant medication issues were identified over the last 24 hours: See below. Subjective/Interval Events: No acute events overnight. Patient seen and examined with attending physician. VSS and remains afebrile. Patient with no new complaints, denies pain and is tolerating diet. All questions answered, patient remains agreeable to plan of care. Remains cleared for therapies. Patient had multiple bowel movements yesterday, states they were formed and he denies belly pain. Will continue to monitor fluid status. ROS negative for chest pain or shortness of breath. Objective: Vitals: Temp: 37.4 ??C (99.4 ??F) BP: 118/57 Pulse: 83 Resp: 18 SpO2: 97 % Height: 175.3 cm Weight: 108.4 kg Body mass index is 35.27 kg/m??. Physical Exam: Today's physical exam is unchanged, except for bolded changes below General: Appears well developed and well nourished. appears dry with some skin tenting Eyes: Eyes anicteric, not injected. Cardiovascular: Extremities well perfused and distal pulses intact, no edema Respiratory: Normal work of breathing on room air Gastrointestinal: Abdomen soft and nontender Musculoskeletal: no obvious deformities or swelling RUE: 55 LUE: 55 RLE: 5 LLE: 01/26 Neurologic Mental Status: Intact speech and language. Orientation, attention, memory, and fund of knowledge are intact as manifested by the patient's ability to furnish a complete and lucid medical history. Integumentary: Warm and dry. . Right femoral/groin surgical wound with malodorous discharge, non tender, left femoral/groin surgical wound with scant blood discharge, non tender. Erythema developing in same area concerning for yeast infection Psychiatric: Mood and behavior normal. All systems above examined with findings unchanged unless otherwise noted Labs: No results for input(s): WBC, HGB, HCT, MCV, PLATELET, BANDEST in the last 72 hours. Invalid input(s): NEUTROPHIL % Recent Labs 02/02/231930 GLUCOSE 91 No results for input(s): GLUCOSE POCT in the last 24 hours. 12/28/2022: Hemoglobin A1C 5.0 % 01/08/2023: Hematocrit 28.2 % (L) 01/12/2023: WBC, Urine 4 /HPF (H) 01/21/2023: Hemoglobin, Urine Negative 01/27/2023: WBC (White Blood Cell Count) 4.24 k/uL (L); Hemoglobin 10.0 g/dL (L); Neutrophils (%) 48 %; MCV (Mean Corpuscular Volume) 97.6 fL; Platelet Count 97 k/uL (L) 12/28/2022: Est Avg Glucose 97 mg/dL 01/21/2023: Glucose, Urine Negative 01/26/2023: Glucose 105 mg/dL (H) 01/27/2023: Sodium 131 mEq/L (L); Potassium 3.5 mEq/L; Chloride 97 mEq/L (L); CO2 24 mEq/L; BUN 58 mg/dL (H); Bun:Creat Ratio 30.05; Creatinine 1.93 mg/dL (H); Glucose 83 mg/dL Radiology reviewed No results found. aspirin, 81 mg, DAILY clopidogreL, 75 mg, DAILY diclofenac sodium, 4 g, QID docusate sodium, 100 mg, BID enoxaparin (LOVENOX) injection, 40 mg, DAILY AT 1600 escitalopram, 20 mg, DAILY evolocumab, 140 mg, Q2WKS gabapentin, 100 mg, QHS metoprolol succinate XL, 25 mg, DAILY nystatin, , BID polyethylene glycol, 17 g, DAILY potassium chloride, 40 mEq, DAILY senna, 1 Tablet, QPM sodium chloride, 3 mL, Q8HR spironolactone, 25 mg, DAILY tiotropium bromide, 2 Inhalation, RTDAILY torsemide, 60 mg, BID traZODone, 50 mg, QPM acetaminophen tablet, 650 mg, [id number]-[id number] bisacodyL, 10 mg, DAILY-PRN dextrose, 15 g, PRN dextrose 50% in water, 25 mL, PRN dextrose 50% in water, 50 mL, PRN docusate sodium, 100 mg, DAILY-PRN hydrALAZINE, 25 mg, [id number] ondansetron, 4 mg, W7KS-XID ondansetron ODT, 4 mg, Q1WC-RFJ oxyCODONE, 5 mg, [id number]-[id number] simethicone, 80 mg, [id number] Assessment/Plan: Raghu Rosenthal a 77yrs old Male admitted to [facility] on 12/28/2022 for NSTEMI and valve replacement. Hospital course complicated by respiratory distress and RTA for worsening encephalopathy. Impaired mobility and ADLs - impaired mobility and ADLs resulting from the above and multiple comorbidities, would benefit from rehab for the following: PT: balance, functional mobility, gait training, orthotics/prosthetic training, transfer training, improving strength, improving endurance, wheelchair mobility, education on assistive devices OT: ADLs, iADLs, adaptive equipment training, transfer training 01/08/23 TransCatheter Aortic Valve Replacement ([id number], 26 Medtronic Evolut Pro, via the Left [...] lipitor will resume home crestor, ct trilipix - 5/4 per Cardiology, dressing removed from surgical site. Steri-strips intact. Acute encephalopathy- resolved Mental status changes have resolved. Per IM Dr. Head, most likely hospital delirium. - work up from acute: ammonia wnL, Bcx NgTD, no leukocytosis - Urinalysis not obtained in acute CKD stage 3 Baseline creatinine ~ 1.5-1.6 Recent Labs 01/26/23 0456 01/27/23 0306 01/31/23 0842 CREATININE 2.01* 1.93* 1.60* - avoid nephrotoxic agents and renally dose all required medicines - CTM Psoriatic arthropathy Chronic Right shoulder pain OA of bilateral knees - therapies as above - MMPT PTSD Depressive disorder - consult CYLINDER GRINDER - continue lexapro Class 2 Obesity Body mass index is 39.64 kg/m??. - nutrition/security control center operator counseling - DM diet w/o sweets or juice - consider [facility] with Dr. Nettles ASthma OLIVIER - cipap while in IPR - continue spiriva and prn albuterol Hx of TIA Cerebellar stroke SAH - therapies as above - DAPT (30 days of plavix) and statin GERD - continue PPI Constipation - 01/29 enema ordered for this evening - 01/30 good BM today with 2x digital stimulation by RN, lactulose also ordered - 01/31 decrease bowel regimen after for 4 Bm's yesterday Groin/femoral surgical site wound Yeast infection - continue wet to dry, cover with mepilex - 02/01 start nystatin DVT Prophylaxis: lovenox GI Prophylaxis: PPI Diet: cardiac/renal Bowel Regimen: 01/27 increased colace to 200 mg bid, started MiraLAX and senna on 01/28 Code status was discussed with the patient and the patient is Full code Estimated date of Discharge: 7-10 Days Rehabilitation Potential: good Discharge Destination: Home with caregiver support Skin: No Pressure injury/ulcer Pressure Ulcer Risk Conditions: none Mathew Lindo MD Associated attestation - Beverly Nettles MD - 02/04/2023 4:35 PM EDT ATTENDING PRECEPTOR NOTE The patient was seen with the resident today;02/04/2023. I performed the critical/velasco portions of the service and agree with the rehab assessment and plan of care that we discussed as documented with my highlights/additions below: Provider electronic signature: Beverly Nettles MD Clinical Mule Operator [facility] [employer] [facility] [employer] [place] [employer] [place] [employer] * Es Hatfield RN - 02/04/2023 10:20 AM EDT Problem: Adult Inpatient Plan of Care Goal: Plan of Care Review Outcome: Ongoing, Progressing Problem: Adult Inpatient Plan of Care Goal: Absence of Hospital-Acquired Illness or Injury Outcome: Ongoing, Progressing Problem: Fall Injury Risk Goal: Absence of Fall and Fall-Related Injury Description: Patient will recognize the appropriate safety interventions to prevent falls risks by and be able to state falls risk by 02-09-2023 . Outcome: Ongoing, Progressing Intervention: Identify and Manage Contributors Flowsheets (Taken 02/04/2023 1020) Self-Care Promotion: independence encouraged BADL personal objects within reach BADL personal routines maintained meal set-up provided safe use of adaptive equipment encouraged Medication Review/Management: medications reviewed Intervention: Promote Injury-Free Environment Flowsheets (Taken 02/04/2023 1020) Safety Promotion/Fall Prevention: activity supervised assistive device/personal items within reach clutter-free environment maintained commode/urinal/bedpan at bedside fall prevention program maintained gait belt nonskid shoes/slippers when out of bed * Rosalino Jack RN - 02/04/2023 6:19 AM EDT End of Shift Summary Pertinent Events This Shift: No acute events or changes overnight Nursing Concerns: none Patient/Family Concerns: incontinence while sleeping ; Patient reassured; and offered briefs while sleeping Barriers Toward Goals/Discharge: Ongoing therapy ; Discharge planning Mental Status: AAO x4 Pain Control: Patient denies any pain during this shift Mobility: Stand by assist * Es Hatfield RN - 02/03/2023 6:08 PM EDT Shift summary: Patient alert and oriented x 4, at bedside earlier this shift, no reports of pain this shift, tolerating diet well, takes medications whole without difficulty, continent of bowel and bladder, last BM 02/03, patient had multiple BM's this shift, provider notified, dressing changedthis shift per order, no prn medications given this shift. Bed in low, locked position, and call green is in reach. Bed alarm on. Gait belt and non-skid socks/footwear on if getting out of bed with staff. Patient received education on medications given throughout this shift. Patient is also receiving education about proper methods to prevent any skin breakdown. Hourly rounding performed throughout shift by RN and care aid. Will report to oncoming shift. * Mathew Lindo MD - 02/03/2023 2:05 PM EDT Images from the original note were not included. Department of Physical Medicine and Rehabilitation Rehab Physician Progress Note Raghu Rosenthal, 77yrs Male Admit Date: 01/26/2023 Today's Date: 02/03/2023 Drug Regimen Review Completed: Yes The following clinically significant medication issues were identified over the last 24 hours: See below. Subjective/Interval Events: No acute events overnight. Patient seen and examined with attending physician. VSS and remains afebrile. Patient with no new complaints, denies pain and is tolerating diet. All questions answered, patient remains agreeable to plan of care. Remains cleared for therapies. One recorded Bm yesterday. Morning diuretic held, will continue to monitor fluid status. ROS negative for chest pain or shortness of breath. Objective: Vitals: Temp: 36.7 ??C (98.1 ??F) BP: 99/57 Pulse: 79 Resp: 16 SpO2: 98 % Height: 175.3 cm Weight: 108.4 kg Body mass index is 35.27 kg/m??. Physical Exam: Today's physical exam is unchanged, except for bolded changes below General: Appears well developed and well nourished. appears dry with some skin tenting Eyes: Eyes anicteric, not injected. Cardiovascular: Extremities well perfused and distal pulses intact, no edema Respiratory: Normal work of breathing on room air Gastrointestinal: Abdomen soft and nontender Musculoskeletal: no obvious deformities or swelling RUE: 5/5 LUE: 5/5 RLE: 5/5 LLE: 5/5 Neurologic Mental Status: Intact speech and language. Orientation, attention, memory, and fund of knowledge are intact as manifested by the patient's ability to furnish a complete and lucid medical history. Integumentary: Warm and dry. . Right femoral/groin surgical wound with malodorous discharge, non tender, left femoral/groin surgical wound with scant blood discharge, non tender. Erythema developing in same area concerning for yeast infection Psychiatric: Mood and behavior normal. All systems above examined with findings unchanged unless otherwise noted Labs: No results for input(s): WBC, HGB, HCT, MCV, PLATELET, BANDEST in the last 72 hours. Invalid input(s): NEUTROPHIL % Recent Labs 02/02/231930 GLUCOSE 91 Recent Labs 02/02/23 193 GLUCOSE POCT 91 12/28/2022: Hemoglobin A1C 5.0 % 01/08/2023: Hematocrit 28.2 % (L) 01/12/2023: WBC, Urine 4 /HPF (H) 01/21/2023: Hemoglobin, Urine Negative 01/27/2023: WBC (White Blood Cell Count) 4.24 k/uL (L); Hemoglobin 10.0 g/dL (L); Neutrophils (%) 48 %; MCV (Mean Corpuscular Volume) 97.6 fL; Platelet Count 97 k/uL (L) 12/28/2022: Est Avg Glucose 97 mg/dL 01/21/2023: Glucose, Urine Negative 01/26/2023: Glucose 105 mg/dL (H) 01/27/2023: Sodium 131 mEq/L (L); Potassium 3.5 mEq/L; Chloride 97 mEq/L (L); CO2 24 mEq/L; BUN 58 mg/dL (H); Bun:Creat Ratio 30.05; Creatinine 1.93 mg/dL (H); Glucose 83 mg/dL Radiology reviewed No results found. aspirin, 81 mg, DAILY clopidogreL, 75 mg, DAILY diclofenac sodium, 4 g, QID docusate sodium, 100 mg, BID enoxaparin (LOVENOX) injection, 40 mg, DAILY AT 1600 escitalopram, 20 mg, DAILY evolocumab, 140 mg, Q2WKS gabapentin, 100 mg, QHS metoprolol succinate XL, 25 mg, DAILY nystatin, , BID polyethylene glycol, 17 g, DAILY potassium chloride, 40 mEq, DAILY senna, 1 Tablet, QPM sodium chloride, 3 mL, Q8HR spironolactone, 25 mg, DAILY tiotropium bromide, 2 Inhalation, RTDAILY torsemide, 60 mg, BID traZODone, 50 mg, QPM acetaminophen tablet, 650 mg, B1KO-XPC bisacodyL, 10 mg, DAILY-PRN dextrose, 15 g, PRN dextrose 50% in water, 25 mL, PRN dextrose 50% in water, 50 mL, PRN docusate sodium, 100 mg, DAILY-PRN hydrALAZINE, 25 mg, L6AM-BYX ondansetron, 4 mg, [id number]-ZTB ondansetron ODT, 4 mg, S6BD-XSB oxyCODONE, 5 mg, E3TU-JXM simethicone, 80 mg, U3HB-RKO Assessment/Plan: Raghu Rosenthal a 77yrs old Male admitted to [facility] on 12/28/2022 for NSTEMI and valve replacement. Hospital course complicated by respiratory distress and RTA for worsening encephalopathy. Impaired mobility and ADLs - impaired mobility and ADLs resulting from the above and multiple comorbidities, would benefit from rehab for the following: PT: balance, functional mobility, gait training, orthotics/prosthetic training, transfer training, improving strength, improving endurance, wheelchair mobility, education on assistive devices OT: ADLs, iADLs, adaptive equipment training, transfer training 01/08/23 TransCatheter Aortic Valve Replacement ([id number], 26 Medtronic Evolut Pro, via the Left [...] lipitor will resume home crestor, ct trilipix - / per Cardiology, dressing removed from surgical site. Steri-strips intact. Acute encephalopathy- resolved Mental status changes have resolved. Per IM Dr. Neverova, most likely hospital delirium. - work up from acute: ammonia wnL, Bcx NgTD, no leukocytosis - Urinalysis not obtained in acute CKD stage 3 Baseline creatinine ~ 1.5-1.6 Recent Labs 01/26/23 0456 01/27/23 0306 01/31/23 0842 CREATININE 2.01* 1.93* 1.60* - avoid nephrotoxic agents and renally dose all required medicines - CTM Psoriatic arthropathy Chronic Right shoulder pain OA of bilateral knees - therapies as above - MMPT PTSD Depressive disorder - consult CYLINDER GRINDER - continue lexapro Class 2 Obesity Body mass index is 39.64 kg/m??. - nutrition/security control center operator counseling - DM diet w/o sweets or juice - consider referral [facility] with Dr. Nettles ASthma OLIVIER - cipap while in IPR - continue spiriva and prn albuterol Hx of TIA Cerebellar stroke SAH - therapies as above - DAPT (30 days of plavix) and statin GERD - continue PPI Constipation - 01/29 enema ordered for this evening - 01/30 good BM today with 2x digital stimulation by RN, lactulose also ordered - 01/31 decrease bowel regimen after for 4 Bm's yesterday Groin/femoral surgical site wound Yeast infection - continue wet to dry, cover with mepilex - 02/01 start nystatin DVT Prophylaxis: lovenox GI Prophylaxis: PPI Diet: cardiac/renal Bowel Regimen: 01/27 increased colace to 200 mg bid, started MiraLAX and senna on 01/28 Code status was discussed with the patient and the patient is Full code Estimated date of Discharge: 7-10 Days Rehabilitation Potential: good Discharge Destination: Home with caregiver support Skin: No Pressure injury/ulcer Pressure Ulcer Risk Conditions: none Mathew Lindo MD Associated attestation - Beverly Nettles MD - 02/03/2023 7:36 PM EDT ATTENDING PRECEPTOR NOTE The patient was seen with the resident today;02/03/2023. I performed the critical/velasco portions of the service and agree with the rehab assessment and plan of care that we discussed as documented with my highlights/additions below: Provider electronic signature: Beverly Nettles MD Clinical Mule Operator [facility] [place] [employer] and [employer] [place] [employer] * Es Hatfield, RN - 02/03/2023 10:47 AM EDT Problem: Adult Inpatient Plan of Care Goal: Plan of Care Review Outcome: Ongoing, Progressing Problem: Adult Inpatient Plan of Care Goal: Absence of Hospital-Acquired Illness or Injury Outcome: Ongoing, Progressing Problem: Fall Injury Risk Goal: Absence of Fall and Fall-Related Injury Description: Patient will recognize the appropriate safety interventions to prevent falls risks by and be able to state falls risk by 02-09-2023. Outcome: Ongoing, Progressing * Laina William, JULIA - 02/03/2023 5:03 AM EDT End of Shift Summary Pertinent Events This Shift: Patient initially feeling uncomfortable with dry mouth, cramping in BLE, and feeling jittery. Improved overnight. Day team to evaluate current diuretic order in AM prior to administration. Nursing Concerns: See previous note from start of shift. Patient symptoms did improve overnight, currently resting quietly in bed. Patient/Family Concerns: Restless, did eventually fall asleep. Pain improved overnight. Barriers Toward Goals/Discharge: Therapy. Dc planning Mental Status: Alert, oriented x 4 Pain Control: Tylenol helped with BLE cramping Mobility: GEMs 3 * Laina William, JULIA - 02/02/2023 10:31 PM EDT Assumed care of patient @ 1900; patient c/o cramping in BLE/feet tonight, reporting from increased activity today. Patient more jittery, c/o feeling cold. Reports just overall feeling uncomfortable. Tylenol given, Voltaren gel applied. Skin turger poor. No edema noted. Lung sounds clear. Patientslips pink/dry. VSS, 102/46, HR 78, temp 99.1, respirations 18, oxygen 98% on room air. Notified provider cardiac monitor regarding patients symptoms. No new orders at this time, other than to hold off on diuretics this shift until day team makes a decision. Patient is drinking more water, and states he believes he was shivering from eating too much ice earlier. He continues to have some difficulty sleeping at night and is currently up in his recliner. He states he doesn't want to wear his cpap while inhospital, that he plans to resume it at home. Explained risks/benefits of cpap. Patient verbalized understanding. Will continue to monitor for any changes in status. Problem: Fall Injury Risk Goal: Absence of Fall and Fall-Related Injury Description: Patient will recognize the appropriate safety interventions to prevent falls risks by and be able to state falls risk by 02-06-2023 . Outcome: Ongoing, Progressing Goal: Absence of Fall and Fall-Related Injury Outcome: Ongoing, Progressing Goal: Absence of Fall and Fall-Related Injury Outcome: Ongoing, Progressing Goal: Absence of Fall and Fall-Related Injury Outcome: Ongoing, Progressing Goal: Absence of Fall and Fall-Related Injury Outcome: Ongoing, Progressing Problem: Adult Inpatient Plan of Care Goal: Plan of Care Review Outcome: Ongoing, Progressing Goal: Patient-Specific Goal (Individualized) Outcome: Ongoing, Progressing Goal: Absence of Hospital-Acquired Illness or Injury Outcome: Ongoing, Progressing Goal: Optimal Comfort and Wellbeing Outcome: Ongoing, Progressing Goal: Readiness for Transition of Care Outcome: Ongoing, Progressing * Es Hatfield RN - 02/02/2023 6:11 PM EDT Shift summary: Patient alert and oriented x 4, no reports of pain this shift, tolerating diet well,takes medications whole without difficulty, continent/incontinent of bowel and continent of bladder, last BM 02/02, dressing changed this shift per order, no prn medications given this shift. Bed in low, locked position, and call green is in reach. Bed alarm on. Gait belt and non-skid socks/footwear on if getting out of bed with staff. Patient received education on medications given throughout this shift. Patient is also receiving education about proper methods to prevent any skin breakdown. Hourly rounding performed throughout shift by RN and care aid. Will report to oncoming shift. * Leigha Warren, PT - 02/02/2023 3:30 PM EDT Problem: Physical Therapy Goal: PT Daily Note Note: PHYSICAL THERAPY DAILY NOTE Patient Name: Raghu Rosenthal Date of :1945 Age: 77yrs Date: 02/02/2023 Session 1: Time In 1430 Time Out 1530 Precautions: Fall and Cardiac (No heavy lifting (>10lbs), pushing, or pulling until insertion site is healed for 4-6 weeks. Donot raise your arm above shoulder level or stretch for 4-6 weeks) Physical Therapy Care Home Goals LTG Anticipated Completion: by discharge date. PT Maintenance Foreman Goals PT PEER COUNSELOR GOAL 1: Pt will perform transfers using LRAD modified independent in order to decreaseburden of care PT FDC GOAL 2: Pt will ambulate at least 200 feet using LRAD with supervision in order to navigate his home and community PT FDC GOAL 3: Pt will negotiate at least 4 steps using railings with CGA in order to enter/exit the home PT FDC GOAL 4: Caregiver will attend family education and demonstrate ability to assist pt with functional mobility for safe discharge home Current Physical Therapy Goals: PT SHORT TERM GOAL 1: Pt will perform all bed mobility with supervision Anticipated End Date-Goal 1: 02/07/23 PT SHORT TERM GOAL 2: Pt will perform transfers using LRAD with supervision Anticipated End Date-Goal 2: 02/07/23 PT SHORT TERM GOAL 3: Pt will ambulate at least 150 feet using LRAD with CGA Anticipated End Date-Goal 3: 02/07/23 PT SHORT TERM GOAL 4: Pt will negotiate at least 1 six inch step using railings with CGA Anticipated End Date-Goal 4: 02/07/23 PT SHORT TERM GOAL 5: Pt will perform standing balance activity for at least 1 minute with one to no UE support with CGA to reduce fall risk Anticipated End Date-Goal 5: 02/07/23 Subjective: Pt sitting in recliner upon entering room. No family present. Pt denied any pain and agreed to workwith therapy Objective/Assessment: Bed Mobility: Pt transitioned from sitting to supine on MOVEO and in hospital bed with minimal assist for LE management. Pt transitioned from semi fowlers to sitting on MOVEO with minimal assist for trunk management Transfers: Pt performed stand step transfer from recliner to manual wheelchair; to/from manual wheelchair and MOVEO; and from manual wheelchair to hospital bed with CGA for balance/safety using RW Ambulation: Pt ambulated 100 feet x 2 using RW with CGA for balance/safety over level tile. Pt required extended seated rest breaks between trials LE strengthening for progression toward independent functional mobility: -pt utilized MOVEO using to perform LE squats at decreased body weight percentage. Pt performed 3 sets 10 at 10 degrees, 15 degree and 20 degrees. HR 83 at highest. Adequate rest breaks provided for safety. Pt reported 6-7/10 rating of perceived exertion on modified chuck scale At end of session, pt left in hospital bed. All railings up. Call green and personal items in reach.Bed alarm on Plan: Standing balance activities, progress LE strengthening, gait without assistive device Leigha Warren, PT, DPT * Anais Mcgovern OTR/Jessica - 02/02/2023 1:30 PM EDT Problem: Occupational Therapy Goal: OT Daily Note Note: OCCUPATIONAL THERAPY DAILY NOTE Patient Name: Raghu Rosenthal Date of :1945 Age: 77yrs Date: 02/02/2023 Session 1: Time In 0900 Time Out 1000 Session 2: Time In 1300 Time Out 1330 Precautions: Fall, Cardiac, and no pacemaker (no lifting >10lb, do not push/pull, do not raise arm above shoulder level) Occupational Therapy Maintenance Foreman Goals: LTG Anticipated Completion: by discharge date. OT Care Home Goals OT FDC GOAL 1: Mr. Rosenthal will get ready for the day (bathing, dressing, grooming, toileting) with supervision and AE/DME as needed while adhering to precautions. OT PEER COUNSELOR GOAL 2: Mr. Rosenthal will complete bathroom transfers as in home setup (toilet, tub/shower) with supervision and LRAD while adhering to precautions OT PEER COUNSELOR GOAL 3: Mr. Rosenthal will complete a simple IADL task with supervision while adhering to precautions Current Occupational Therapy Goals: OT SHORT TERM GOAL 1: Mr. Rosenthal will complete standing trials of at least 5 minutes for increased independence with self care tasks. Anticipated End Date-Goal 1: 02/08/23 OT SHORT TERM GOAL 2: Mr. Rosenthal will complete LB dressing with supervision for increased independence with self care tasks Anticipated End Date-Goal 2: 02/08/23 OT SHORT TERM GOAL 3: Mr. Rosenthal will complete foot wear with no more than setup for increased independence with self care tasks. Anticipated End Date-Goal 3: 02/08/23 OT SHORT TERM GOAL 4: Mr. Rosenthal will complete a toilet transfer with no more than CGA while adhering to precautions for increased independence with functional mobility Anticipated End Date-Goal 4: 02/08/23 OT SHORT TERM GOAL 5: Mr. Rosenthal will complete a simple IADL task with no more than minimal verbal cues for adhering to task and problem solving. Anticipated End Date-Goal 5: 02/08/23 OT SHORT TERM GOAL 6: Mr. Rosenthal will participate in therapeutic procedures/activities at least 15 min/day and 3 days/week for increased strength and endurance for ADL, IADL, and functional mobility. Anticipated End Date-Goal 6: 02/08/23 OT SHORT TERM GOAL 7: Mr. Rosenthal will verbalize pacemaker precautions with no more than minimal verbal cues. Anticipated End Date-Goal 7: 02/08/23 Subjective: Session 1: Patient agreeable to OT session. Denies pain. Session 2: Patient agreeable to OT session. Denies pain. Objective/Assessment: Session 1: Patient received seated in recliner. He is able to independently verbalize his precautions upon prompting. Self care: patient donned shoes with setup assist seated in recliner. He stood to adjust his pants with supervision. He ambulated from recliner>sink with no AD and CGA and completed hair grooming and oral care in standing. Therapeutic activities: patient completed fishing activity in standing for dynamic standing balanceand standing tolerance. He completes the activity with no AD and intermittent CGA for safety. He uses BUE to manage a fishing pole to retrieve fish from ground level. He is in standing for 4 minutes without a rest break. Next, patient completed a card sorting activity at tabletop, in standing. He side stepped along a table with supervision and no AD to retrieve playing cards in order from lowest>highest. He required one verbal cue to pick the next card in order, but otherwise completes independently with extra time. He makes a few mistakes (missing cards while scanning) but self corrects when he recognizes the error. He is in standing for 2 trials (4 minutes, and 2 minutes respectively) with a seated rest break in between. Therapeutic procedures: patient completed light BUE exercise for increased endurance and strength for independence with mobility. He completed biceps curls and low rows with 3# dumbbells, 3x10 reps each exercise. Upon returning to room, patient ambulated from the doorway to the recliner with no AD and close supervision. At completion of session, patient left seated in recliner with all needs addressed or in reach (phone, call green). Handoff communication to JULIA Suggs. Session 2: Patient received seated in recliner. His is present half-way thru session. When patient's arrives, he is able to stand and walk to her with no AD and SBA to give her a hug. Self care: patient completed shaving while seated and standing at the sink. He required minimal assist from his to assist with thoroughness of his neck. They both report this is baseline. Therapeutic procedures: patient completed exercise for increased strength and endurance. Exercise Repetitions Sets Comments Triceps punches 5 minute duration, alternating arms. Red theraband Sit>stand 10 1 SBA, no AD At completion of session, patient left seated in recliner with all needs addressed or in reach (phone, call green). at bedside. Handoff to JULIA Suggs. Plan: Endurance, IADL BOOGIE Haile * Melva Craft, CCC-CLINICAL CARE MANAGER - 02/02/2023 11:00 AM EDT SPEECH-LANGUAGE COGNITIVE-COMMUNICATIVE ASSESSMENT [facility] Patient Name: Raghu Rosenthal Date of Evaluation: 02/02/2023 Date of : 1945 Age: 77yrs Gender: Male Problem List (Physician/Prescriber generated effective date of this evaluation): Active Problems: Hypertension (12/28/2022) Hyperlipidemia (12/28/2022) Coronary artery disease (12/28/2022) Vitreous degeneration, right eye (12/29/2022) Sensorineural hearing loss, bilateral (12/29/2022) Psoriasis with arthropathy ([facility]/HCC) (12/29/2022) Posttraumatic stress disorder (12/29/2022) Postsurgical aortocoronary bypass status (12/29/2022) Obstructive sleep apnea syndrome in adult (12/29/2022) Mitral and aortic valve disease (12/29/2022) Mild intermittent asthma (12/29/2022) Cerebellar stroke syndrome (01/22/2011) Subarachnoid hemorrhage ([facility]/HCC) (04/22/2012) S/P prosthetic total arthroplasty of the hip (04/22/2012) Psoriasis (05/05/2011) Personal history of transient ischemic attack (TIA), and cerebral infarction without residual deficits (01/07/2023) Pancreatitis (04/22/2012) Osteoarthritis of both knees (10/08/2018) GERD (gastroesophageal reflux disease) (04/22/2012) Former smoker (04/22/2012) Fatty liver (04/22/2012) Diverticulitis (04/22/2012) Diabetes mellitus (CMS/HCC) (05/22/2019) 01/08/23 TransCatheter Aortic Valve Replacement ([id number], 26 Medtronic Evolut Pro, via the Left Transfemoral Approach) EF 35% (01/08/2023) CKD (chronic kidney disease) stage 3, GFR 30-59 ml/min (CMS/HCC) (01/09/2023) AMS (altered mental status) (01/21/2023) Prior Level of Communicative Function: Prior to admission, Howie lived at home with his , stating that they were jointly responsible for medication management, but that he was independent with finances. He completed school with a GED and previously was in the [employer] for 4 years, though he is now retired for age. He enjoys vintage cars, swimming, taking out his 4-rubin, and being with his family. He states that his goal in rehab is to go home and hug my family. Pertinent History: Per Dr. Lowe's H&P: Raghu Rosenthal is a 77yrs old White Male with past medical history of CAD s/p CABG x2 in [place] 10 years ago, HTN, HLD, porcine AVR who initially presented to [facility] ED with complaints of SOB and midchest pressure. Patient lives in [place] with his , and is visiting [facility] for the next 3 months. He recently had a ziopatch placed by the [facility] Davis on 12/27. Following this procedure he had worsening SOB associated with fatigue, malaise and generalized weakness. EMS was called and he was brought to [facility] ED. On arrival he was noted to be in mild respiratory distress and required bipap. WBC of 19. EKG without NUNO, troponin 1.197. CXR consistent with mild interstitial edema, and a small left pleural effusion. He was given nitro sublingual and morphine, and started on BID lovenox. He was admitted to the ICU at [facility]. He was started on empiric vanc, cefepime for possible infection. He was hypotensive requiring levophed with a differential of cardiogenic vs septic shock. He had a repeat EKG done on 12/28 with a new LBBB. His troponin trended as high as 39. Given concerns for acute coronary syndrome, he was transferred to [facility] for further management. On arrival to CICU, patient is awake and alert. He is on low dose levophed. He is warm to the touchand appears well perfused. POCUS with EF visually estimated at 45%. He underwent a R/LHC 12/28/2022 showin. Severe three-vessel disease with patent VOGT to LAD, intermediate stenosis in mid RCA, 60% distal left main stenosis. Culprit for his MD appears to be an occluded SVG to ramus graft. There is flowin the ramus with proximal 70% stenosis. 2. He is also noted to have severely degenerated bioprosthetic aortic valve, invasive gradients reviewed severely stenotic with mean gradient over 40 mmHg. 3. Decompensated heart failure with preserved cardiac output. We had discontinued his Levophed on arrival to the Documentation Specialist. LVEDP 30mmHg Patient was treated for cardiogenic [...] L nasal cannula with weaning as tolerated. Patient returned to acute on 01/21 due to worsening AMS. Patient currently complains of hard stools and difficulty with bowel movements. Otherwise he is doing well. No additional concerns. . Reports he and his are from [place]. They were down in [place] for vacation. He is anxious to get started and ready to get back to [facility]. Patient lives with spouse in a 1 [...] with ambulation for approximately 20ft with RW. CT Head 01/20/23: 1. No evidence of acute intracranial hemorrhage, [...] continued clinical concern. Reading Doctor: Javed Infante CXR 01/14/23: Improving right upper lobe and left basilar pulmonary opacities. Reading Doctor: Jacek Severino Clinical Swallow Evaluation per Acute CLINICAL CARE MANAGER 01/22/23: DIAGNOSTIC IMPRESSIONS: Pt is at an increased risk for oropharyngeal dysphagia secondary to acute encephalopathy. PMHx includes CAD, respiratory failure, cerebellar CVA, subarachnoid hemorrhage Pt presented with a functional oropharyngeal swallow at bedside. Despite thorough challenging, no overt signs or symptoms of aspiration detected across consistencies. Oral motor mechanism grossly intact with no oral phase deficits noted. Recommend regular solids, all level liquids with medications whole, one pill at a time with thin liquids. No further ST services indicated at this time, please re-consult if concerns arise. JULIA Conn and MD Mcghee notified. RECOMMENDATION: Diet Consistency: (MD to specify other dietary restrictions) Regular diet All levels of liquids Medications: One pill at a time; administer with thin liquid Further Evaluations: Instrumental evaluation not indicated at this time Speech-Language Cognitive-Communicative Evaluation requested on this date. Other Recommendations: Frequent oral care Nursing to monitor all oral intake and make strict NPO if signs/symptoms of aspiration appear. EVALUATION: Assistive devices used during this evaluation: Glasses Assistive devices routinely used but not available during this evaluation: Hearing aids During the course of this evaluation, the patient was alert and responsive. Responses were prompt and tangential. AUDITORY COMPREHENSION: Within functional limits VERBAL EXPRESSION: Within functional limits SPEECH INTELLIGIBILITY: Within functional limits ORAL MOTOR ABILITY: Within functional limits VOICE: Within functional limits FLUENCY: Within functional limits PROSODY: Within functional limits HEARING: The patient benefits from increased volume. The patient wears hearing aids and they are not available. COGNITION: ORIENTATION: Within functional limits ORGANIZATION: The following impairments were noted: sequencing related words. RECALL: The following impairments were noted: retaining new information provided during the evaluation, immediate recall of sentences, and immediate recall of oral paragraph. VERBAL PROBLEM SOLVING: Within functional limits VERBAL REASONING: The following impairments were noted: inferring information. CALCULATION: The following impairments were noted: Performing time management word problems For cognitive-communicative skills assessed, the patient benefits from: increased time to respond, short, simple instructions, decreased distractions, gestures and visual cues, repetition of stimuli,written cues, and stressing particular words or phrases. READING: Within functional limits. WRITING: The patient is right handed TEST RESULTS: The patient was administered The Vidant Cognitive Inventory II and received a total score of 83/100=83%. Subtest Score (actual/potential) Orientation 16/16 Auditory Memory - Immediate 03/07 Simple Problem Solving Complex Problem Solving Auditory Memory - Short Term 12/27 Fund of Information 02/27 Calculations 04/02 Reading Comprehension 06/03 Total 83/100 The patient was administered the Clock Drawing on the Cognitive Linguistic Quick Test and received a total score of 10/13 indicating a severity rating of Mild for his age in one aspect of executivefunctioning. DIAGNOSIS: The patient exhibits mild Cognitive Communicative Disorder, characterized by reduced attention, recall, verbal reasoning, calculation, and some executive functioning. RECOMMENDATIONS: Speech/language/cognitive-communicative treatment is recommended. Potential for improvement is Fair. PAIN: Intensity (Adult): 0 (patient denies pain) PLAN: Speech Therapy Care Home Goals intermediate frame tender goals to be met by discharge. Speech Therapy Care Home Goals SPEECH THERAPY PEER COUNSELOR GOAL 1: Patient will exhibit increased attention, recall, thought organization, inference, and calculation for completion of daily tasks given min assist from caregivers for verbal cues and increased time. Speech Therapy Short Term Goals Speech Therapy Short Term Goals SPEECH SHORT TERM GOAL 1: Patient will complete auditory/visual attention tasks with 80% accuracy given mod assist for repetition, verbal/visual cues, choice of 2, and increased time. Anticipated End Date-Goal 1: 02/08/23 SPEECH SHORT TERM GOAL 2: Patient will recall functional auditory information (3/4 WRAP, 3/4 list, therapies, schedule, precautions, appointments) immediately and upon 10 min delay with 80% accuracy given mod assist for repetition, verbal/visual cues, choice of 2, and increased time. Anticipated End Date-Goal 2: 02/08/23 SPEECH SHORT TERM GOAL 3: Patient will recall 4-5 sentence paragraphs immediately and upon 10 min delay with 80% accuracy given mod assist for repetition, verbal/visual cues, choice of 2, and increased time. Anticipated End Date-Goal 3: 02/08/23 SPEECH SHORT TERM GOAL 4: Patient will order 4 semantically related words with 80% accuracy given mod assist for repetition, verbal/visual cues, choice of 2, and increased time. Anticipated End Date-Goal 4: 02/08/23 SPEECH SHORT TERM GOAL 5: Patient will complete auditory/visual inference tasks with 80% accuracy given mod assist for repetition, verbal/visual cues, choice of 2, and increased time. Anticipated End Date-Goal 5: 02/08/23 SPEECH SHORT TERM GOAL 6: Patient will complete simple time/medication/money management tasks with 80% accuracy given mod assist for repetition, verbal/visual cues, choice of 2, use of external aids,and increased time. Anticipated End Date-Goal 6: 02/08/23 Speech Therapy Treatment Plan Speech Therapy Treatment Plan Speech Interventions: Cognitive-Communicative treatment Speech Therapy Intensity (Hours per Day): at least .5 hours per day Speech Therapy Frequency (Days per Week): at least 4 days per week Speech Therapy Duration: 7 days from initial eval Potential to Achieve Speech Therapy Goals: fair Patient: has reviewed SP treatment plan., understands SP treatment plan., agrees with SP treatment plan. Family/Caregiver : Family/Caregiver unavailable. Patient has reviewed, understood and agrees with treatment plan: Yes Melva Craft CCC-CLINICAL CARE MANAGER * Es Hatfield RN - 02/02/2023 10:12 AM EDT Problem: Adult Inpatient Plan of Care Goal: Plan of Care Review Outcome: Ongoing, Progressing Problem: Adult Inpatient Plan of Care Goal: Absence of Hospital-Acquired Illness or Injury Outcome: Ongoing, Progressing Problem: Fall Injury Risk Goal: Absence of Fall and Fall-Related Injury Description: Patient will recognize the appropriate safety interventions to prevent falls risks by and be able to state falls risk by 02-09-2023 . Outcome: Ongoing, Progressing * Louis Lowe MD - 02/02/2023 10:05 AM EDT Images from the original note were not included. Department of Physical Medicine and Rehabilitation Rehab Physician Progress Note Raghu Rosenthal, 77yrs Male Admit Date: 01/26/2023 Today's Date: 02/02/2023 Drug Regimen Review Completed: Yes The following clinically significant medication issues were identified over the last 24 hours: See below. Subjective/Interval Events: No acute events overnight. Patient seen and examined with attending physician. VSS and remains afebrile. No AM labs today. Blood sugars are appropriate (detailed below in objective findings), no change to current diabetes regimen. Patient with no new complaints this morning. Denies pain. Eating 100% of meals. Tolerating therapies thus far. No issues with bowel or bladder. All questions and concerns addressed.No acute concerns from nursing staff this morning other than the above. Remains cleared for therapies at this time. Objective: Vitals: Temp: 36.6 ??C (97.8 ??F) BP: 138/89 Pulse: 79 Resp: 18 SpO2: 97 % Height: 175.3 cm Weight: 108.4 kg Body mass index is 35.27 kg/m??. Physical Exam: Today's physical exam is unchanged, except for bolded changes below General: Appears well developed and well nourished. Not diaphoretic. Pleasant and cooperative with exam Eyes: Eyes anicteric, not injected. Cardiovascular: Extremities well perfused and distal pulses intact, no edema Respiratory: Normal work of breathing on room air Gastrointestinal: Abdomen soft and nontender Musculoskeletal: no obvious deformities or swelling RUE: 01/26 LUE: 5 RLE: 01/26 LLE: 5 Neurologic Mental Status: Intact speech and language. Orientation, attention, memory, and fund of knowledge are intact as manifested by the patient's ability to furnish a complete and lucid medical history. Integumentary: Warm and dry. . Right femoral/groin surgical wound with malodorous discharge, non tender, left femoral/groin surgical wound with scant blood discharge, non tender. Erythema developing in same area concerning for yeast infection Psychiatric: Mood and behavior normal. All systems above examined with findings unchanged unless otherwise noted Labs: Recent Labs 01/31/23 0842 WBC 5.00 HGB 11.2* HCT 35.4* MCV 98.1 PLATELET 112* Recent Labs 01/31/23 0842 SODIUM 134* POTASSIUM 4.0 CHLORIDE 101 BICARBONATE 21* GLUCOSE 100 BUN 50* CREATININE 1.60* CALCIUM 8.4 No results for input(s): GLUCOSE POCT in the last 24 hours. 12/28/2022: Hemoglobin A1C 5.0 % 01/08/2023: Hematocrit 28.2 % (L) 01/12/2023: WBC, Urine 4 /HPF (H) 01/21/2023: Hemoglobin, Urine Negative 01/27/2023: WBC (White Blood Cell Count) 4.24 k/uL (L); Hemoglobin 10.0 g/dL (L); Neutrophils (%) 48 %; MCV (Mean Corpuscular Volume) 97.6 fL; Platelet Count 97 k/uL (L) 12/28/2022: Est Avg Glucose 97 mg/dL 01/21/2023: Glucose, Urine Negative 01/26/2023: Glucose 105 mg/dL (H) 01/27/2023: Sodium 131 mEq/L (L); Potassium 3.5 mEq/L; Chloride 97 mEq/L (L); CO2 24 mEq/L; BUN 58 mg/dL (H); Bun:Creat Ratio 30.05; Creatinine 1.93 mg/dL (H); Glucose 83 mg/dL Radiology reviewed No results found. aspirin, 81 mg, DAILY clopidogreL, 75 mg, DAILY diclofenac sodium, 4 g, QID docusate sodium, 100 mg, BID enoxaparin (LOVENOX) injection, 40 mg, DAILY AT 1600 escitalopram, 20 mg, DAILY evolocumab, 140 mg, Q2WKS gabapentin, 100 mg, QHS metoprolol succinate XL, 25 mg, DAILY nystatin, , BID polyethylene glycol, 17 g, DAILY potassium chloride, 40 mEq, DAILY senna, 1 Tablet, QPM sodium chloride, 3 mL, Q8HR spironolactone, 25 mg, DAILY tiotropium bromide, 2 Inhalation, RTDAILY torsemide, 60 mg, BID traZODone, 50 mg, QPM acetaminophen tablet, 650 mg, [id number] bisacodyL, 10 mg, DAILY-PRN dextrose, 15 g, PRN dextrose 50% in water, 25 mL, PRN dextrose 50% in water, 50 mL, PRN docusate sodium, 100 mg, DAILY-PRN hydrALAZINE, 25 mg, [id number] ondansetron, 4 mg, A7OO-YPM ondansetron ODT, 4 mg, S2PD-TNV oxyCODONE, 5 mg, I8RR-VFE simethicone, 80 mg, [id number]-TNA Assessment/Plan: Raghu Rosenthal a 77yrs old Male admitted to [facility] on 12/28/2022 for NSTEMI and valve replacement. Hospital course complicated by respiratory distress and RTA for worsening encephalopathy. Impaired mobility and ADLs - impaired mobility and ADLs resulting from the above and multiple comorbidities, would benefit from rehab for the following: PT: balance, functional mobility, gait training, orthotics/prosthetic training, transfer training, improving strength, improving endurance, wheelchair mobility, education on assistive devices OT: ADLs, iADLs, adaptive equipment training, transfer training 01/08/23 TransCatheter Aortic Valve Replacement ([id number], 26 Medtronic Evolut Pro, via the Left [...] lipitor will resume home crestor, ct trilipix - / per Cardiology, dressing removed from surgical site. Steri-strips intact. Acute encephalopathy- resolved Mental status changes have resolved. Per IM Dr. Head, most likely hospital delirium. - work up from acute: ammonia wnL, Bcx NgTD, no leukocytosis - Urinalysis not obtained in acute CKD stage 3 Baseline creatinine ~ 1.5-1.6 Recent Labs 01/26/23 0456 01/27/23 0306 01/31/23 0842 CREATININE 2.01* 1.93* 1.60* - avoid nephrotoxic agents and renally dose all required medicines - CTM Psoriatic arthropathy Chronic Right shoulder pain OA of bilateral knees - therapies as above - MMPT PTSD Depressive disorder - consult CYLINDER GRINDER - continue lexapro Class 2 Obesity Body mass index is 39.64 kg/m??. - nutrition/security control center operator counseling - DM diet w/o sweets or juice - consider referral to [facility] with Dr. Nettles ASthma OLIVIER - cipap while in IPR - continue spiriva and prn albuterol Hx of TIA Cerebellar stroke SAH - therapies as above - DAPT (30 days of plavix) and statin GERD - continue PPI Constipation - 01/29 enema ordered for this evening - 01/30 good BM today with 2x digital stimulation by RN, lactulose also ordered - 01/31 decrease bowel regimen after for 4 Bm's yesterday Groin/femoral surgical site wound Yeast infection - continue wet to dry, cover with mepilex - 02/01 start nystatin DVT Prophylaxis: lovenox GI Prophylaxis: PPI Diet: cardiac/renal Bowel Regimen: 01/27 increased colace to 200 mg bid, started MiraLAX and senna on 01/28 Code status was discussed with the patient and the patient is Full code Estimated date of Discharge: 7-10 Days Rehabilitation Potential: good Discharge Destination: Home with caregiver support Skin: No Pressure injury/ulcer Pressure Ulcer Risk Conditions: none Louis Lowe MD Associated attestation - Beverly Nettles MD - 02/02/2023 2:43 PM EDT ATTENDING PRECEPTOR NOTE The chart was reviewed and the patient was interviewed and examined with the resident Dr. Lowe today;02/02/2023. I performed the critical/velasco portions of the service and agree with the rehab assessment and plan of care that we discussed as documented. 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 Provider electronic signature: Beverly Nettles MD Clinical Mule Operator [facility] [employer] [place] [employer] and [employer] [place] [employer] * Laina William RN - 02/02/2023 6:15 AM EDT End of Shift Summary Pertinent Events This Shift: None new Nursing Concerns: None new Patient/Family Concerns: None new Barriers Toward Goals/Discharge: Therapy Mental Status: Alert, oriented x 4 Pain Control: Denies Mobility: GEMs 3 * Laina William RN - 02/01/2023 11:12 PM EDT Assumed care of patient @ 1900; patient resting quietly in bed at this time. Without new complaints. Will continue to monitor. Problem: Fall Injury Risk Goal: Absence of Fall and Fall-Related Injury Description: Patient will recognize the appropriate safety interventions to prevent falls risks by and be able to state falls risk by 02-06-2023 . Outcome: Ongoing, Progressing Goal: Absence of Fall and Fall-Related Injury Outcome: Ongoing, Progressing Goal: Absence of Fall and Fall-Related Injury Outcome: Ongoing, Progressing Goal: Absence of Fall and Fall-Related Injury Outcome: Ongoing, Progressing Goal: Absence of Fall and Fall-Related Injury Outcome: Ongoing, Progressing Problem: Adult Inpatient Plan of Care Goal: Plan of Care Review Outcome: Ongoing, Progressing Goal: Patient-Specific Goal (Individualized) Outcome: Ongoing, Progressing Goal: Absence of Hospital-Acquired Illness or Injury Outcome: Ongoing, Progressing Goal: Optimal Comfort and Wellbeing Outcome: Ongoing, Progressing Goal: Readiness for Transition of Care Outcome: Ongoing, Progressing * Sonali Bateman PTA - 02/01/2023 4:07 PM EDT Problem: Physical Therapy Goal: PT Daily Note Note: PHYSICAL THERAPY DAILY NOTE Patient Name: Raghu Rosenthal Date of :1945 Age: 77yrs Date: 02/01/2023 Session 1: Time In 1510 Time Out 1540 Precautions: Fall, Cardiac, and no lifting > 10 pounds. (Do not raise your arm, above shoulder level, or stretch, for 4-6 weeks) Physical Therapy Maintenance Foreman Goals LTG Anticipated Completion: by discharge date. PT Care Home Goals PT PEER COUNSELOR GOAL 1: Pt will perform transfers using LRAD modified independent in order to decreaseburden of care PT PEER COUNSELOR GOAL 2: Pt will ambulate at least 200 feet using LRAD with supervision in order to navigate his home and community PT PEER COUNSELOR GOAL 3: Pt will negotiate at least 4 steps using railings with CGA in order to enter/exit the home PT FDC GOAL 4: Caregiver will attend family education and demonstrate ability to assist pt with functional mobility for safe discharge home Current Physical Therapy Goals: PT SHORT TERM GOAL 1: Pt will perform all bed mobility with supervision Anticipated End Date-Goal 1: 02/07/23 PT SHORT TERM GOAL 2: Pt will perform transfers using LRAD with supervision Anticipated End Date-Goal 2: 02/07/23 PT SHORT TERM GOAL 3: Pt will ambulate at least 150 feet using LRAD with CGA Anticipated End Date-Goal 3: 02/07/23 PT SHORT TERM GOAL 4: Pt will negotiate at least 1 six inch step using railings with CGA Anticipated End Date-Goal 4: 02/07/23 PT SHORT TERM GOAL 5: Pt will perform standing balance activity for at least 1 minute with one to no UE support with CGA to reduce fall risk Anticipated End Date-Goal 5: 02/07/23 Subjective: Patient agreeable, to PT session. Objective/Assessment: Patient's present, during PT session. Patient wearing gait belt, seated in a recliner, prior to PT session. BP taken in sitting, BP 130/73, HR 100 BPM. Patient without thuy dizziness, throughout PT session. Patient transferred sit/stand/stand/sit, to/from a recliner, with + 1 CGA, for balance, safety, adherence to precautions and physical support, (helper touch, to steadying assistance), utilizing a bariatric rolling walker. Patient performed a stand step transfer, to/from a recliner, with + 1 CGA, for balance, safety, adherence to precautions and physical support, (helper touch, to steadying assistance), utilizing a bariatric rolling walker. Transfers performed, to increase functional independence. Patient gait trained 96 feet x 1, (on level surfaces, with turns), with + 1 CGA, for balance, safety, adherence to precautions and physical support, (helper touch, to steadying assistance x 1), utilizing a bariatric rolling walker. Patient gait trained with decreased speed, decreased bilateral LE step length and with an unsteady/step to gait pattern. Patient required 2-3 standing rest breaks, (during gait training sessions), secondary to fatigue. Second person followed, with a manual w/c, if needed. Gait training performed, to increase functional independence. Patient performed seated bilateral LE A/AAROM exercises consisting of: modified ankle pumps and modified LAQ's, 10 reps, to improve strength and to increase activity tolerance. Patient required verbal cues/visual cues, via therapist, to initiate/perform each exercise. Patient with fatigue. At the end of PT session, patient safely positioned, in a recliner, (with brakes, on recliner, in locked position). Patient with all needs, within reach, to include call green. Patient's present,with patient and to notify Nursing, if leaving hospital room. Nursing staff present, with patient, during PT session. director agency & strategic partnerships took vitals, (see nursing notes). Plan: Continue with POC. Sonali Bateman PTA * Erica Hutson, PT - 02/01/2023 3:59 PM EDT Problem: Physical Therapy Goal: PT Daily Note Note: PHYSICAL THERAPY DAILY NOTE Patient Name: Raghu Rosenthal Date of :1945 Age: 77yrs Date: 02/01/2023 Session 1: Time In 1400 Time Out 1430 Precautions: Fall, Cardiac, and no lifting >10 pounds Physical Therapy Maintenance Foreman Goals LTG Anticipated Completion: by discharge date. PT Care Home Goals PT FDC GOAL 1: Pt will perform transfers using LRAD modified independent in order to decreaseburden of care PT FDC GOAL 2: Pt will ambulate at least 200 feet using LRAD with supervision in order to navigate his home and community PT FDC GOAL 3: Pt will negotiate at least 4 steps using railings with CGA in order to enter/exit the home PT PEER COUNSELOR GOAL 4: Caregiver will attend family education and demonstrate ability to assist pt with functional mobility for safe discharge home Current Physical Therapy Goals: PT SHORT TERM GOAL 1: Pt will perform all bed mobility with supervision Anticipated End Date-Goal 1: 02/07/23 PT SHORT TERM GOAL 2: Pt will perform transfers using LRAD with supervision Anticipated End Date-Goal 2: 02/07/23 PT SHORT TERM GOAL 3: Pt will ambulate at least 150 feet using LRAD with CGA Anticipated End Date-Goal 3: 02/07/23 PT SHORT TERM GOAL 4: Pt will negotiate at least 1 six inch step using railings with CGA Anticipated End Date-Goal 4: 02/07/23 PT SHORT TERM GOAL 5: Pt will perform standing balance activity for at least 1 minute with one to no UE support with CGA to reduce fall risk Anticipated End Date-Goal 5: 02/07/23 Subjective: Howie does not complain of pain or dizziness in session. Objective/Assessment: Howie is sitting in his wheelchair in the neuro gym in line of sight of therapists. He agrees to participate in PT. Howie ambulates 85 feet x 2 trials using bariatric RW with CGA for safety. He ambulates with decreased gait speed, decreased B step lengths, wide LUCIA, and downward head gaze. He is limited by fatigue requiring seated rest break between trials. Howie performs standing reciprocal step taps to 5 inch step for improving his standing balance. Steptaps performed 10 x 2 with BLEs with use of RW for UE support. CGA for safety with seated rest break between trials. Howie is transferred to his room seated in his wheelchair. He ambulates short distance to his recliner using no AD with CGA. He remains seated with brakes locked. Call green and possessions within reach. He reports no further needs at this time. JULIA Mukherjee notified of his return. Plan: Gait training, transfer training, endurance tasks, and pt/caregiver education Erica Hutson, PT * Louis Lowe MD - 02/01/2023 2:47 PM EDT Images from the original note were not included. Department of Physical Medicine and Rehabilitation Rehab Physician Progress Note Raghu Rosenthal, 77yrs Male Admit Date: 01/26/2023 Today's Date: 02/01/2023 Drug Regimen Review Completed: Yes The following clinically significant medication issues were identified over the last 24 hours: See below. Subjective/Interval Events: No acute events overnight. Patient seen and examined with attending physician. VSS and remains afebrile. No AM labs today. Blood sugars are appropriate (detailed below in objective findings). Patient with no new complaints this morning. Denies pain. Eating 100% of meals. Tolerating therapies thus far. No issues with bowel or bladder. Discussed bilateral femoral/groin surgical wounds today, malodorous with discharge. Patient educated on importance of good hygiene. Will start nystatin cream for management of yeast infection to bilateral groin/panus. All questions and concerns addressed.No acute concerns from nursing staff this morning other than the above. Remains cleared for therapies at this time. NOTE: This document was prepared using a combination of digital dictation and [employer]. Any transcriptional errors that result from this process are unintentional. Full ROS was performed and is otherwise negative unless noted above Objective: Vitals: Temp: 36.9 ??C (98.4 ??F) BP: (!) 119/45 Pulse: 82 Resp: 17 SpO2: 96 % Height: 175.3 cm Weight: 108.4 kg Body mass index is 35.27 kg/m??. Physical Exam: Today's physical exam is unchanged, except for bolded changes below General: Appears well developed and well nourished. Not diaphoretic. Pleasant and cooperative with exam Eyes: Eyes anicteric, not injected. Cardiovascular: Extremities well perfused and distal pulses intact, no edema Respiratory: Normal work of breathing on room air Gastrointestinal: Abdomen soft and nontender Musculoskeletal: no obvious deformities or swelling RUE: 5/5 LUE: 5/5 RLE: 5/5 LLE: 5/5 Neurologic Mental Status: Intact speech and language. Orientation, attention, memory, and fund of knowledge are intact as manifested by the patient's ability to furnish a complete and lucid medical history. Integumentary: Warm and dry. . Right femoral/groin surgical wound with malodorous discharge, non tender, left femoral/groin surgical wound with scant blood discharge, non tender. Erythema developing in same area concerning for yeast infection Psychiatric: Mood and behavior normal. All systems above examined with findings unchanged unless otherwise noted Labs: Recent Labs 01/31/23 0842 WBC 5.00 HGB 11.2* HCT 35.4* MCV 98.1 PLATELET 112* Recent Labs 01/29/23201201/30/23 0743 01/31/23 0842 SODIUM -- -- 134* POTASSIUM -- -- 4.0 CHLORIDE -- -- 101 BICARBONATE -- -- 21* GLUCOSE 88 92 100 BUN -- -- 50* CREATININE -- -- 1.60* CALCIUM -- -- 8.4 No results for input(s): GLUCOSE POCT in the last 24 hours. 12/28/2022: Hemoglobin A1C 5.0 % 01/08/2023: Hematocrit 28.2 % (L) 01/12/2023: WBC, Urine 4 /HPF (H) 01/21/2023: Hemoglobin, Urine Negative 01/27/2023: WBC (White Blood Cell Count) 4.24 k/uL (L); Hemoglobin 10.0 g/dL (L); Neutrophils (%) 48 %; MCV (Mean Corpuscular Volume) 97.6 fL; Platelet Count 97 k/uL (L) 12/28/2022: Est Avg Glucose 97 mg/dL 01/21/2023: Glucose, Urine Negative 01/26/2023: Glucose 105 mg/dL (H) 01/27/2023: Sodium 131 mEq/L (L); Potassium 3.5 mEq/L; Chloride 97 mEq/L (L); CO2 24 mEq/L; BUN 58 mg/dL (H); Bun:Creat Ratio 30.05; Creatinine 1.93 mg/dL (H); Glucose 83 mg/dL Radiology reviewed No results found. aspirin, 81 mg, DAILY clopidogreL, 75 mg, DAILY diclofenac sodium, 4 g, QID docusate sodium, 100 mg, BID enoxaparin (LOVENOX) injection, 40 mg, DAILY AT 1600 escitalopram, 20 mg, DAILY evolocumab, 140 mg, Q2WKS gabapentin, 100 mg, QHS metoprolol succinate XL, 25 mg, DAILY polyethylene glycol, 17 g, DAILY potassium chloride, 40 mEq, DAILY senna, 1 Tablet, QPM sodium chloride, 3 mL, Q8HR spironolactone, 25 mg, DAILY tiotropium bromide, 2 Inhalation, RTDAILY torsemide, 60 mg, BID traZODone, 50 mg, QPM acetaminophen tablet, 650 mg, D4CL-EHK bisacodyL, 10 mg, DAILY-PRN dextrose, 15 g, PRN dextrose 50% in water, 25 mL, PRN dextrose 50% in water, 50 mL, PRN docusate sodium, 100 mg, DAILY-PRN hydrALAZINE, 25 mg, W7TO-FRE ondansetron, 4 mg, Q9VA-BHH ondansetron ODT, 4 mg, P3OH-JXP oxyCODONE, 5 mg, T8KZ-GNP simethicone, 80 mg, Z4OF-NUI Assessment/Plan: Raghu Rosenthal a 77yrs old Male admitted to [facility] on 12/28/2022 for NSTEMI and valve replacement. Hospital course complicated by respiratory distress and RTA for worsening encephalopathy. Impaired mobility and ADLs - impaired mobility and ADLs resulting from the above and multiple comorbidities, would benefit from rehab for the following: PT: balance, functional mobility, gait training, orthotics/prosthetic training, transfer training, improving strength, improving endurance, wheelchair mobility, education on assistive devices OT: ADLs, iADLs, adaptive equipment training, transfer training 01/08/23 TransCatheter Aortic Valve Replacement ([id number], 26 Medtronic Evolut Pro, via the Left [...] lipitor will resume home crestor, ct trilipix - 01/25 per Cardiology, dressing removed from surgical site. Steri-strips intact. Acute encephalopathy- resolved Mental status changes have resolved. Per IM Dr. Head, most likely hospital delirium. - work up from acute: ammonia wnL, Bcx NgTD, no leukocytosis - Urinalysis not obtained in acute CKD stage 3 Baseline creatinine ~ 1.5-1.6 Recent Labs 01/26/23 0456 01/27/23 0306 01/31/23 0842 CREATININE 2.01* 1.93* 1.60* - avoid nephrotoxic agents and renally dose all required medicines - CTM Psoriatic arthropathy Chronic Right shoulder pain OA of bilateral knees - therapies as above - MMPT PTSD Depressive disorder - consult CYLINDER GRINDER - continue lexapro Class 2 Obesity Body mass index is 39.64 kg/m??. - nutrition/security control center operator counseling - DM diet w/o sweets or juice - consider referral [facility] with Dr. Nettles ASthma OLIVIER - cipap while in IPR - continue spiriva and prn albuterol Hx of TIA Cerebellar stroke SAH - therapies as above - DAPT (30 days of plavix) and statin GERD - continue PPI Constipation - 01/29 enema ordered for this evening - 01/30 good BM today with 2x digital stimulation by RN, lactulose also ordered - 01/31 decrease bowel regimen after for 4 Bm's yesterday Groin/femoral surgical site wound Yeast infection - continue wet to dry, cover with mepilex - 02/01 start nystatin DVT Prophylaxis: lovenox GI Prophylaxis: PPI Diet: cardiac/renal Bowel Regimen: 01/27 increased colace to 200 mg bid, started MiraLAX and senna on 01/28 Code status was discussed with the patient and the patient is Full code Estimated date of Discharge: 7-10 Days Rehabilitation Potential: good Discharge Destination: Home with caregiver support Skin: No Pressure injury/ulcer Pressure Ulcer Risk Conditions: none Louis Lowe MD Associated attestation - Beverly Nettles MD - 02/02/2023 2:35 PM EDT ATTENDING PRECEPTOR NOTE The chart was reviewed and the patient was interviewed and examined with the resident Dr. Lowe today;02/01/2023. I performed the critical/velasco portions of the service and agree with the rehab assessment and plan of care that we discussed as documented. with highlights/corrections/additions below: Noted to have cognitive impairment by therapists as a barrier to therapy gains, he was readmitted to acute when he developed AMS post AVR with cardiogenic shock that could have resulted in encephalopathy due to anoxic brain injury versus underlying mild vascular dementia, will get CLINICAL CARE MANAGER eval and treat, remains appropriate to continue with IPR to optimize and maximize functional independence in spite pt's medical illness. Provider electronic signature: Beverly Nettles MD Clinical Mule Operator [facility] [place] [employer] of Physical [employer] and Rehabilitation [place] [employer] Medicine * May Guzmán - 02/01/2023 2:23 PM EDT Patient Care Conference Update: Patient was discussed in team conference on 02/01/2023. CM spoke with patient at bedside and to patient's via phone to provide updates from PCC. Updates: Discuss EDOD: 02/09/2023 Identify Destination: Home to [place] immediately after d/c What is the Plan for Supervision:Patient's will provide supervision and care DME recommendations: TBD DME Provider of Choice: No preference Provide family education reminders: Cathy Rosenthal, Spouse 02/05/2023 at 9a Patient and his are in agreement with the discharge date set for 02/09/2023. May Guzmán, CORDELL, MACHINE PROGRAMMER-A Inpatient Rehab Volunteer Services Supervisor [address] [id number] E-mail: [email or web address] For Case Management assistance (if unable to reach the primary CM) Sunday through Sunday, Weekends or Holidays 8:30 am-5:00 pm, please page [phone] pager [phone]. For Case Management assistance after 5:00 pm, please call [phone]. * Vivian Grace, OTR/L - 02/01/2023 12:57 PM EDT Problem: Occupational Therapy Goal: OT Daily Note Note: OCCUPATIONAL THERAPY DAILY NOTE Patient Name: Raghu Rosenthal Date of :1945 Age: 77yrs Date: 02/01/2023 Session 1: Time In 1300 Time Out 1400 Precautions: Fall and Cardiac(No heavy lifting (>10lbs), pushing, or pulling until insertion site is healed for 4-6 weeks. Do not raise your arm above shoulder level or stretch for 4-6 weeks) Occupational Therapy Maintenance Foreman Goals: LTG Anticipated Completion: by discharge date. OT Maintenance Foreman Goals OT PEER COUNSELOR GOAL 1: Mr. Rosenthal will get ready for the day (bathing, dressing, grooming, toileting) with supervision and AE/DME as needed while adhering to precautions. OT FDC GOAL 2: Mr. Rosenthal will complete bathroom transfers as in home setup (toilet, tub/shower) with supervision and LRAD while adhering to precautions OT PEER COUNSELOR GOAL 3: Mr. Rosenthal will complete a simple IADL task with supervision while adhering to precautions Current Occupational Therapy Goals: OT SHORT TERM GOAL 1: Mr. Rosenthal will complete standing trials of at least 5 minutes for increased independence with self care tasks. Anticipated End Date-Goal 1: 02/08/23 OT SHORT TERM GOAL 2: Mr. Rosenthal will complete LB dressing with supervision for increased independence with self care tasks Anticipated End Date-Goal 2: 02/08/23 OT SHORT TERM GOAL 3: Mr. Rosenthal will complete foot wear with no more than setup for increased independence with self care tasks. Anticipated End Date-Goal 3: 02/08/23 OT SHORT TERM GOAL 4: Mr. Rosenthal will complete a toilet transfer with no more than CGA while adhering to precautions for increased independence with functional mobility Anticipated End Date-Goal 4: 02/08/23 OT SHORT TERM GOAL 5: Mr. Rosenthal will complete a simple IADL task with no more than minimal verbal cues for adhering to task and problem solving. Anticipated End Date-Goal 5: 02/08/23 OT SHORT TERM GOAL 6: Mr. Rosenthal will participate in therapeutic procedures/activities at least 15 min/day and 3 days/week for increased strength and endurance for ADL, IADL, and functional mobility. Anticipated End Date-Goal 6: 02/08/23 OT SHORT TERM GOAL 7: Mr. Rosenthal will verbalize pacemaker precautions with no more than minimal verbal cues. Anticipated End Date-Goal 7: 02/08/23 Subjective: Pt reporting he was daydreaming about his grandchildren upon OT arrival. Pt reporting no c/o pain and agreeable to outside OT session. Objective/Assessment: Pt received supine in bed asleep, however easily awakened. Pt able to verbalize Cardiac precautionswith 1 verbal cue for no heavy lifting (>10lbs). Pt completed supine to EOB transfer with Supervision for safety. Pt then completed stand step transfer with no AD EOB to w/c with CGA for safety. Pt transported outside to [facility] with instruction and assistance for topographical orientation to d irect OT back to therapy gym upon completion of OT session to address functional cognition, pt verbalized good understanding. Pt able to marketing administrative assistant intervals of 3 min 15 sec, 3 min 22 sec, 2 min, 1 min 32 sec, and 3 minutes with CGA- Supervision to complete BUE fine motor task of building metal structure to address standing tolerance, fine motor skills, unsupported balance, and cognition (direction following, sequencing). Pt able to read instructions along with visual handout to retrieve needed supplies to build/take apart 3 simple structures (square, rectangle, and triangle) with moderate cuing along with increased time to complete task. Pt able to demonstrate safety awareness during task by initiating seated rest break, pt able to continue completion of task during seated rest breaks. After completion of task OT instructed pt in patient financial services coordinator activity of writing check to january simulated bill. Pt required minimal cues to writing check . Pt reporting he typically pays bills with credit/debit card. OT asked pt series of questions to address patient financial services coordinator, pt required moderate cues for bill management and money management (calculating change, verbalizing how to ensure something is paid for if paid in mackay receipt. Pt verbalizing his will assist with patient financial services coordinator. Pt requesting to complete functional mobility with use of RW for household distances in [facility] on varying surfaces (uneven, smooth) with CGA and verbal cues for safety/environment awareness duringtransition from smooth to uneven surfaces. Pt able to ambulate ~1 min , 45 seconds before required rest break. Pt transported back to therapy gym, however unable to direct OT back to therapy gym. Upon OT departure pt remained seated in w/c with seat belt and breaks locked. Pt requesting to complete gardening and cooking task, per reporting he enjoys those activities. Pt declining any further needs and reporting no c/o pain. Hand off with PT. Plan: Standing tolerance, gardening tasks, IADLs (cooking) Vivian Grace OTR/L * Alaina Cm, PT - 02/01/2023 11:00 AM EDT Rehabilitation Interdisciplinary Team Conference and Treatment Plan Date Of Conference: 02/02/2023 Patient Name: Raghu Rosenthal Date of Admission: 01/26/2023 Attending Physician: Beverly Nettles,* Rehab Team: GRKriss Impairment Code: Adult Impairment Code: 09 - Cardiac Initial Conference Date: 02/01/23 Next Conference Date: 02/08/23 Pending Discharge Date: 02/09/23 (HH vs outpatient?) Team Members Attending Today's Conference: Dr. Beverly Nettles (attending MD); Dr. Louis Lowe (resident MD); Alaina Cm (PT); Anais Mcgovern (OT); Brie Connell (RN); Britney Carreon (RT); Oralia (case making machine operator) Prior Functional Status Mobility Transfers: Independent Transfer Devices: None Walking/Ambulation: Independent Wheelchair mobility: Not applicable Stair negotiation: Independent ADL's/IADL's Eating: Independent Dressing: Independent Bathing: Independent Bathing equipment used: Grab bars Toileting: Independent Toileting equipment used: (Higher than standard toilet) Bladder: Continent Bowel: Continent Domestic Chores: Independent (Per pt report, assisted with chores inside the home) Sensory Hearing: Impaired (Slightly [place] (able to hear with raised voice)) Vision: Functional with lenses Cognition Cognition: Needs assist for memory Communication Communication: Normal Ongoing Medical Rehabilitation Needs and Interventions as discussed in Team Conference PATIENT FAMILY GOALS Patient/Family Stated Goal: to go home be with my family and get around SAFETY NEEDS/INTERVENTIONS Fall Risks: moderate FUNCTIONAL NEEDS AND INTERVENTIONS Mobility: missed some therapy d/t constipation and low tolerance for activity. limited by standing balance/tolerance, impaired cognition. DME needs and f/u therapy TBD. transfers with RW and CGA. ambulates 50 feet with CGA. Self Care: ADLs with min/mod A and transfers with CGA. recommend 24/7 supervision. recommend CLINICAL CARE MANAGER consult. limited by standing balance, endurance, and precautions. Wound Care/Skin: L groin incision with gauze. R groing with wet to dry MEDICAL NEEDS AND INTERVENTIONS Bladder Management: cont Bowel Management: cont Comorbidities: PMH visiting from [place] s/p valve replaced and pacemaker in setting on acute on chronic HF and NSTEMI. following cardiology recs. RTA after first IPR stay d/t acute encephalopathy, now resolved. CKD now improving. 2 groin wounds as part of cardiac surgery now draining malodorous, will start niastatin for yeast in skin folds and dressing for the drainage. resolved constipation DVT: lovenox Pain: voltarin, tylenol, ronald DISCHARGE NEEDS AND INTERVENTIONS Discharge Disposition: home with Home Modifications: was visiting [place]. originally lives in [place] (to clarify d/c disposition) Other Discharge Needs/Interventions: SURVEY INSTRUMENT OPERATOR independent Nursing Weekly Summary (Active) Problem: Rehab Care Home Goals Goal: Rehab Nursing Care Home Goal/Weekly Update Description: Care Home Goals SAFETY/FALLS GOAL: Patient/caregiver will be able to state fall risk and interventions to remove the fall risk for the next level of care. Current fall risk: medium. Patient does not have history of falls. Patient is alert/oriented to person (knows own name), place (knows current location), time (knows time of day and season of year). Patient and Caregivers are being educated on fall risk and safety precautions. Safety measures include bed alarm. BLADDER GOAL: Patient/caregiver will be able to manage patient's bladder needs without episodes of wetting accidents. The patient is continent. BOWEL GOAL: Patient/caregiver will be able to manage patient's bowel elimination needs without episodes of soiling accidents. The patient is continent. MEDICATIONS GOAL: Patient/caregiver will state the name, schedule and reason for medications and safely administer medications SKIN INTEGRITY GOAL: Patient/caregiver will be able to manage patient wound care and able to identify preventive measurements to maintain skin integrity and prevent skin breakdown. The patient's skin currently is not intact. Patient has an incision to the left and right groin. Requires moist to dry gauze daily, cover with surgical tape. Patient sleeps all night. NUTRITION GOAL: Patient/caregiver will state purpose of all dietary restrictions at the time of discharge Patient is on regular diet. The patient is not a new diabetic. RESPIRATORY GOAL: Patient/caregiver will utilize appropriate equipment for airway management. REHAB ACCOUNTING MANAGER CPA WEEKLY UPDATE Patient Name: Raghu Rosenthal Date: 01/31/2023 Volunteer Services Supervisor Maintenance Foreman Goal (Active) Problem: Rehab Maintenance Foreman Goals Goal: Rehab Volunteer Services Supervisor Maintenance Foreman Goals Description: DISCHARGE PLANNING FDC GOAL Patient/Family stated goal: go home, be with my family, and get around Emergency Contact: Cathy Rosenthal, , Weekly Update: HCPOA/Advance Directive: no, patient declined Patient and his are from [place] and has been vacationing in [place] for 3 months. The couple has 3 adult daughters, all residing in [place]. 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 SURVEY INSTRUMENT OPERATOR patient was independent of ADL's, ambulatory, driving, and denies any falls. Patient has PMH of PTSD, [facility] Per chart review patient recently admitted 12/28 and discharged to [facility] 01/19, now readmitted back 01/21 to hospital unit. This places him at high risk for readmission. DME: [facility] ([facility]) H/H: none SURVEY INSTRUMENT OPERATOR PCP: Williams Yip MD. Dr. Michael Mckenzie at the [facility] in [place], [place]; Insurance: Medicare Part A/B. Secondary Payor: [facility] Administration Uses [facility] Prescription Drug Coverage: yes, no issues obtaining medications Family Education: TBD Emergency Contact: Cathy Rosenthal, patient's Plan to return home at D/C Patient's will provide care and transportation at D/C Barriers to Discharge: Need for functional gains, education by the therapists as deemed appropriate, and coordination of other post discharge needs and services. Yany Chaney OCCUPATIONAL THERAPY WEEKLY SUMMARY Patient Name: Raghu Rosenthal Date: 01/30/2023 PRECAUTIONS Fall, Cardiac, and pacemaker PEER COUNSELOR GOALS LTG Anticipated Completion: by discharge date. OT FDC GOAL 1: Mr. Rosenthal will get ready for the day (bathing, dressing, grooming, toileting) with supervision and AE/DME as needed while adhering to precautions. OT FDC GOAL 2: Mr. Rosenthal will complete bathroom transfers as in home setup (toilet, tub/shower) with supervision and LRAD while adhering to precautions OT PEER COUNSELOR GOAL 3: Mr. Rosenthal will complete a simple IADL task with supervision while adhering to precautions SHORT TERM GOALS Previous Current 01/27/2023 3:00 PM 01/30/2023 12:29 PM Short Term Goals-Previous Week/Current SHORT TERM GOAL 1 NOT MET/ONGOING - Mr. Rosenthal will complete standing trials of at least 5 minutes for increased independence with self care tasks. Mr. Rosenthal will complete standing trials of at least 5 minutes for increased independence with self care tasks. Anticipated End Date 02/02/2023 02/08/2023 SHORT TERM GOAL 2 MET/UPDATED - Mr. Rosenthal will complete LB dressing with CGA for increased independence with self care tasks Mr. Rosenthal will complete LB dressing with supervision for increased independence with self care tasks Anticipated End Date 02/02/2023 02/08/2023 SHORT TERM GOAL 3 MET/UPDATED - Mr. Rosenthal will complete foot wear with no more than supervision forincreased independence with self care tasks. Mr. Rosenthal will complete foot wear with no more than setup for increased independence with self care tasks. Anticipated End Date 02/02/2023 02/08/2023 SHORT TERM GOAL 4 NOT MET/ONGOING - Mr. Rosenthal will complete a toilet transfer with no more than CGAwhile adhering to precautions for increased independence with functional mobility Mr. Rosenthal will complete a toilet transfer with no more than CGA while adhering to precautions for increased independence with functional mobility Anticipated End Date 02/02/2023 02/08/2023 SHORT TERM GOAL 5 NOT MET/ONGOING - Mr. Rosenthal will complete a simple IADL task with no more than minimal verbal cues for adhering to task and problem solving. Mr. Rosenthal will complete a simple IADL task with no more than minimal verbal cues for adhering to task and problem solving. Anticipated End Date 02/02/2023 02/08/2023 SHORT TERM GOAL 6 MET/ONGOING - Mr. Rosenthal will participate in therapeutic procedures/activities at least 15 min/day and 3 days/week for increased strength and endurance for ADL, IADL, and functional mobility. Mr. Rosenthal will participate in therapeutic procedures/activities at least 15 min/day and 3 days/week for increased strength and endurance for ADL, IADL, and functional mobility. Anticipated End Date 02/02/2023 02/08/2023 SHORT TERM GOAL 7 NOT MET/ONGOING - Mr. Rosenthal will verbalize pacemaker precautions with no more than minimal verbal cues. Mr. Rosenthal will verbalize pacemaker precautions with no more than minimal verbal cues. Anticipated End Date 02/02/2023 02/08/2023 PROGRESS TOWARD GOALS Raghu Rosenthal has met 3/7 short term occupational therapy goals this week. Limitations/areas we are continuing to address: impaired cognition, impaired standing balance/tolerance, impaired strength, impaired endurance, pacemaker precautions, constipation Barriers to d/c: will currently require 16/04 assist Hoping to progress to: supervision DME and follow up therapy: TBD. Current functional levels for ADLs: Raghu Rosenthal requires min/mod A for ADLs, and CG-min A for functional transfers. CURRENT TREATMENT PLAN OT Interventions: Activities of daily living, Instrumental activities of daily living, Adaptive equipment/DME recommendations, Transfer training, Therapeutic activities, Therapeutic procedures, Neuromuscular reeducation, Cognitive retraining, Patient/Caregiver education, Visual-perceptual retraining OT Intensity (Hours per Day): 1-2 OT Frequency (Days per Week): 5-6 OT Duration: 7-10 days Potential to Achieve OT Goals: Good Patient: has reviewed OT treatment plan., understands OT treatment plan., agrees with OT treatment plan. Family/Caregiver : Family/Caregiver unavailable. Anais Mcgovern OTR/L PHYSICAL THERAPY WEEKLY UPDATE Patient Name: Raghu Rosenthal Date: 01/31/2023 PRECAUTIONS Fall, Cardiac (No heavy lifting (>10lbs), pushing, or pulling until insertion site is healed for 4-6 weeks. Donot raise your arm above shoulder level or stretch for 4-6 weeks) PEER COUNSELOR GOALS LTG Anticipated Completion: by discharge date. PT PEER COUNSELOR GOAL 1: Pt will perform transfers using LRAD modified independent in order to decreaseburden of care PT FDC GOAL 2: Pt will ambulate at least 200 feet using LRAD with supervision in order to navigate his home and community PT PEER COUNSELOR GOAL 3: Pt will negotiate at least 4 steps using railings with CGA in order to enter/exit the home PT FDC GOAL 4: Caregiver will attend family education and demonstrate ability to assist pt with functional mobility for safe discharge home SHORT TERM GOALS Previous Current 01/27/2023 4:14 PM 01/31/2023 12:11 PM Short Term Goals-Previous Week/Current SHORT TERM GOAL 1 Pt will transfer with CGA of 1 Pt will perform all bed mobility with supervision Anticipated End Date 02/03/2023 02/07/2023 SHORT TERM GOAL 2 Pt will ambulate 100 feet with RW with SBA of 1 Pt will perform transfers using LRAD with supervision Anticipated End Date 02/03/2023 02/07/2023 SHORT TERM GOAL 3 Pt will ambulate at least 150 feet using LRAD with CGA Anticipated End Date 02/07/2023 SHORT TERM GOAL 4 Pt will negotiate at least 1 six inch step using railings with CGA Anticipated End Date 02/07/2023 SHORT TERM GOAL 5 Pt will perform standing balance activity for at least 1 minute with one to no UEsupport with CGA to reduce fall risk Anticipated End Date 02/07/2023 PROGRESS TOWARD GOALS Pt has made limited progress with therapy. He has been unable to participate in recent sessions dueto pain from constipation and fatigue. Currently pt performing transfers with CGA using RW and ambulating up to 100 feet with CGA using RW Pt further limited by impaired standing balance, impaired activity tolerance, impaired cognition, UE/LE weakness Barriers to discharge: Pt will require 24/7 care due to impaired cognition DME and follow up therapy to be determined CURRENT TREATMENT PLAN PT Interventions: Balance re-education, Discharge planning, Durable medical equipment assessment, Functional mobility training, Gait training, Wheelchair mobility training, Transfer training, Therapeutic exercise, Patient/Caregiver education, Neuromuscular re-education Modalities: Cold therapy, Heat therapy PT Intensity (Hours per Day): at least 1 hour PT Frequency (Days per Week): at least 5 days PT Duration: 14 days from initial evaluation Potential to Achieve PT Goals: Fair Patient: has reviewed PT treatment plan. Patient unable to review PT treatment plan due to : Questionable understanding due to impaired cognition Family/Caregiver : has reviewed PT treatment plan., understands PT treatment plan., agrees with PT treatment plan. Family member/caregiver PT treatment plan was discussed with : Leigha Warren, PT, DPT Associated attestation - Beverly Nettles MD - 02/02/2023 10:05 PM EDT I have consulted with the Rehabilitation Team regarding the Interdisciplinary Plan of Care for Raghu Rosenthal during Patient Care Conference-Date of Conference: 02/01/23. Please refer to the physicianProgress Note for this date for further interventions. Beverly Nettles MD * Tanja Ruchi MOISE Dalton/Jessica - 02/01/2023 9:30 AM EDT Problem: Occupational Therapy Goal: OT Daily Note Note: OCCUPATIONAL THERAPY DAILY NOTE Patient Name: Raghu Rosenthal Date of :1945 Age: 77yrs Date: 02/01/2023 Session 1: Time In 0830 Time Out 0930 Precautions: Fall and Cardiac Occupational Therapy Care Home Goals: LTG Anticipated Completion: by discharge date. OT Care Home Goals OT FDC GOAL 1: Mr. Rosenthal will get ready for the day (bathing, dressing, grooming, toileting) with supervision and AE/DME as needed while adhering to precautions. OT PEER COUNSELOR GOAL 2: Mr. Rosenthal will complete bathroom transfers as in home setup (toilet, tub/shower) with supervision and LRAD while adhering to precautions OT FDC GOAL 3: Mr. Rosenthal will complete a simple IADL task with supervision while adhering to precautions Current Occupational Therapy Goals: OT SHORT TERM GOAL 1: Mr. Rosenthal will complete standing trials of at least 5 minutes for increased independence with self care tasks. Anticipated End Date-Goal 1: 02/08/23 OT SHORT TERM GOAL 2: Mr. Rosenthal will complete LB dressing with supervision for increased independence with self care tasks Anticipated End Date-Goal 2: 02/08/23 OT SHORT TERM GOAL 3: Mr. Rosenthal will complete foot wear with no more than setup for increased independence with self care tasks. Anticipated End Date-Goal 3: 02/08/23 OT SHORT TERM GOAL 4: Mr. Rosenthal will complete a toilet transfer with no more than CGA while adhering to precautions for increased independence with functional mobility Anticipated End Date-Goal 4: 02/08/23 OT SHORT TERM GOAL 5: Mr. Rosenthal will complete a simple IADL task with no more than minimal verbal cues for adhering to task and problem solving. Anticipated End Date-Goal 5: 02/08/23 OT SHORT TERM GOAL 6: Mr. Rosenthal will participate in therapeutic procedures/activities at least 15 min/day and 3 days/week for increased strength and endurance for ADL, IADL, and functional mobility. Anticipated End Date-Goal 6: 02/08/23 OT SHORT TERM GOAL 7: Mr. Rosenthal will verbalize pacemaker precautions with no more than minimal verbal cues. Anticipated End Date-Goal 7: 02/08/23 Subjective: Patient agreeable to treatment session Objective/Assessment: Patient was supine in bed upon arrival for treatment session. He engaged in the following task seated and standing at the sink Oral Hygiene: Level of Assist: 5= Set-up or clean-up assistance (Quality Indicator Score) Reason for Assist: set out items for patient use Adaptive Equipment/Alternative Method Used: Position: sitting at the sink Toilet Transfer: Level of Assist: 4= Supervision or touching assistance (Quality Indicator Score) Reason for Assist: balance and safety, ambulating with the rolling walker Adaptive Equipment/Alternative Method Used: Type of Transfer: Toileting Hygiene: Level of Assist: 4= Supervision or touching assistance (Quality Indicator Score) Reason for Assist: balance and safety when standing to complete hygeine Adaptive Equipment/Alternative Method Used: Position: sitting and standing from the toilet Shower/Bathe Self: Level of Assist: 3= Partial/moderate assistance (Quality Indicator Score) Reason for Assist: assistance for washing buttocks for throughness Adaptive Equipment/Alternative Method Used: Position: Dressing Upper Body: Level of Assist: 5= Set-up or clean-up assistance (Quality Indicator Score) Reason for Assist: set out items for patient use Adaptive Equipment/Alternative Method Used: Orthosis/Brace Used: Position: Dressing Lower Body: Pants/Skirt: Level of assist: 4= Supervision or touching assistance (Quality Indicator Score) Reason for assistance: balance and safety when standing to manage paints over hips Adaptive equipment/alternative method used: Position: sitting in the wheelchair and standing Orthosis/Brace Used: Putting On/Taking Off Footwear: Socks/Shoes: Level of assist: 5= Set-up or clean-up assistance (Quality Indicator Score) Reason for Assist: set out items for patient use Adaptive equipment/alternative method used: Orthosis/Brace Used: Position: sitting edge of bed. Patient tolerated treatment session well and was left seated in the recliner upon arrival for treatment session. present upon exiting room. Plan: Standing tolerance for self care task and transfers Ruchi Agrawal COTA/Jessica * Torsten Franco RN - 02/01/2023 5:12 AM EDT Problem: Rehab Maintenance Foreman Goals Goal: Rehab Nursing Care Home Goal/Weekly Update Description: Care Home Goals SAFETY/FALLS GOAL: Patient/caregiver will be able to state fall risk and interventions to remove the fall risk for the next level of care. 02/01/2023:Current fall risk: Patient is on moderate risk for fall and does not have history of falls. Patient is alert/oriented to person (knows own name), place (knows current location), time (knowstime of day and season of year). Patient and Caregivers are being educated on fall risk and safety precautions. Safety measures include line of sight while OOB bed alarm. BLADDER GOAL: Patient/caregiver will be able to manage patient's bladder needs without episodes of wetting accidents. 02/01/2023:The patient is continent of bowel . Requires little or no effort to use the bathroom. On some medication for the urinary system . JULIA FULLER BOWEL GOAL: Patient/caregiver will be able to manage patient's bowel elimination needs without episodes of soiling accidents. 02/01/2023: The patient is continent. On bowel regime to aid with bowel movement . LBM 01/31. JULIA FULLER MEDICATIONS GOAL: Patient/caregiver will state the name, schedule and reason for medications and safely administer medications : Medications patient is currently receiving education at every med pass. Goal is initiated, JULIA FULLER SKIN INTEGRITY GOAL: Patient/caregiver will be able to manage patient wound care and able to identify preventive measurements to maintain skin integrity and prevent skin breakdown. : The patient's skin currently is not intact. Patient has an incision to the left and right groin. Requires Moist to dry gauze daily, cover with surgical tape. JULIA FULLER : Patient sleeps all night. JONNYRN NUTRITION GOAL: Patient/caregiver will state purpose of all dietary restrictions at the time of discharge : Patient is on regular diet. The patient is not a new diabetic..JONNYRN RESPIRATORY GOAL: Patient/caregiver will utilize appropriate equipment for airway management. 02/01/2023: The patient currently on room air. JONNYRN Outcome: Ongoing, Progressing * Wesley Oates RN - 01/31/2023 6:23 PM EDT Problem: Adult Inpatient Plan of Care Goal: Plan of Care Review Shift summary: Patient alert and oriented x4. No complaint of pain this shift. Takes P.O. meds whole floated in apple sauce. Continent of bladder and bowel this shift. Participated with scheduled therapies. Patient educated to use call green for assistance as needed. Bed remains in low/locked position and call green within reach. Patient educated of the need to ask for pain medications to manage pain and prior to therapy or periods of activity so they can participate comfortably. Patient is receiving ongoing education regarding proper methods to keep from developing skin breakdown, including decreasing pressure, cleansing skin, and proper hydration/nutrition. Patient was rounded on throughoutthe shift by staff members. Outcome: Ongoing, Progressing Problem: Fall Injury Risk Goal: Absence of Fall and Fall-Related Injury Description: Patient will recognize the appropriate safety interventions to prevent falls risks by and be able to state falls risk by 02-06-2023 . Outcome: Ongoing, Progressing * Leyla Davenport COTA/L - 01/31/2023 3:32 PM EDT Problem: Occupational Therapy Goal: OT Daily Note Note: OCCUPATIONAL THERAPY DAILY NOTE Patient Name: Raghu Rosenthal Date of :1945 Age: 77yrs Date: 01/31/2023 Session 1: Time In 1400 Time Out 1500 Precautions: Fall, Cardiac (No heavy lifting (>10lbs), pushing, or pulling until insertion site is healed for 4-6 weeks. Donot raise your arm above shoulder level or stretch for 4-6 weeks) Occupational Therapy Care Home Goals: LTG Anticipated Completion: by discharge date. OT Care Home Goals OT FDC GOAL 1: Mr. Rosenthal will get ready for the day (bathing, dressing, grooming, toileting) with supervision and AE/DME as needed while adhering to precautions. OT PEER COUNSELOR GOAL 2: Mr. Rosenthal will complete bathroom transfers as in home setup (toilet, tub/shower) with supervision and LRAD while adhering to precautions OT PEER COUNSELOR GOAL 3: Mr. Rosenthal will complete a simple IADL task with supervision while adhering to precautions Current Occupational Therapy Goals: OT SHORT TERM GOAL 1: Mr. Rosenthal will complete standing trials of at least 5 minutes for increased independence with self care tasks. Anticipated End Date-Goal 1: 02/08/23 OT SHORT TERM GOAL 2: Mr. Rosenthal will complete LB dressing with supervision for increased independence with self care tasks Anticipated End Date-Goal 2: 02/08/23 OT SHORT TERM GOAL 3: Mr. Rosenthal will complete foot wear with no more than setup for increased independence with self care tasks. Anticipated End Date-Goal 3: 02/08/23 OT SHORT TERM GOAL 4: Mr. Rosenthal will complete a toilet transfer with no more than CGA while adhering to precautions for increased independence with functional mobility Anticipated End Date-Goal 4: 02/08/23 OT SHORT TERM GOAL 5: Mr. Rosenthal will complete a simple IADL task with no more than minimal verbal cues for adhering to task and problem solving. Anticipated End Date-Goal 5: 02/08/23 OT SHORT TERM GOAL 6: Mr. Rosenthal will participate in therapeutic procedures/activities at least 15 min/day and 3 days/week for increased strength and endurance for ADL, IADL, and functional mobility. Anticipated End Date-Goal 6: 02/08/23 OT SHORT TERM GOAL 7: Mr. Rosenthal will verbalize pacemaker precautions with no more than minimal verbal cues. Anticipated End Date-Goal 7: 02/08/23 Subjective: I love being outside Objective/Assessment: Handoff received from Leigha Warren PT with patient at w/c level. Patient participated in medication management activity using six medications with differing instructions listed. Patient was able to correctly read each instruction, but required maximal cueing along with increased time (at least 30 minutes) to complete task of filling medication organizer for a week. Cueing/assist needed secondary to impaired memory/recall (patient looked back and re-read reach instructions multiple times), impaired problem solving and attention to details. To improve standing tolerance, patient stood 3x for 1 minute; 3 minutes, 10 seconds; 3 minutes, 18 seconds with CG(Susan) to supervision. Patient was returned to his room and was assisted back to bed per request. He was left with all needs in reach upon exit. Bed alarm set. Plan: Continue POC Leyla Davenport, PHIPPS/L * May Guzmán - 01/31/2023 2:08 PM EDT REHAB ACCOUNTING MANAGER CPA WEEKLY UPDATE Patient Name: Raghu Rosenthal Date: 01/31/2023 Volunteer Services Supervisor Maintenance Foreman Goal (Active) Problem: Rehab Care Home Goals Goal: Rehab Volunteer Services Supervisor Maintenance Foreman Goals Description: DISCHARGE PLANNING PEER COUNSELOR GOAL Patient/Family stated goal: go home, be with my family, and get around Emergency Contact: Cathy Rosenthal, , Weekly Update: HCPOA/Advance Directive: no, patient declined Patient and his are from [place] and has been vacationing in [place] for 3 months. The couple has 3 adult daughters, all residing in [place]. 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 SURVEY INSTRUMENT OPERATOR patient was independent of ADL's, ambulatory, driving, and denies any falls. Patient has PMH of PTSD, [facility] Per chart review patient recently admitted 12/28 and discharged to [facility] 01/19, now readmitted back 01/21 to hospital unit. This places him at high risk for readmission. DME: [facility] ([employer]) H/H: none SURVEY INSTRUMENT OPERATOR PCP: Williams Yip MD. Dr. Michael Mckenzie at the [facility] in [place], [place]; Insurance: Medicare Part A/B. Secondary Payor: [employer] Administration Uses [facility] Prescription Drug Coverage: yes, no issues obtaining medications Family Education: TBD Emergency Contact: Cathy Rosenthal, patient's Plan to return home at D/C Patient's will provide care and transportation at D/C Barriers to Discharge: Need for functional gains, education by the therapists as deemed appropriate, and coordination of other post discharge needs and services. Yany Chaney * Leigha Warren, PT - 01/31/2023 2:00 PM EDT Problem: Physical Therapy Goal: PT Daily Note Note: PHYSICAL THERAPY DAILY NOTE Patient Name: Raghu Rosenthal Date of :1945 Age: 77yrs Date: 01/31/2023 Session 1: Time In 1300 Time Out 1400 Precautions: Fall and Cardiac (No heavy lifting (>10lbs), pushing, or pulling until insertion site is healed for 4-6 weeks. Donot raise your arm above shoulder level or stretch for 4-6 weeks) Physical Therapy Maintenance Foreman Goals LTG Anticipated Completion: by discharge date. PT Care Home Goals PT PEER COUNSELOR GOAL 1: Pt will perform transfers using LRAD modified independent in order to decreaseburden of care PT FDC GOAL 2: Pt will ambulate at least 200 feet using LRAD with supervision in order to navigate his home and community PT PEER COUNSELOR GOAL 3: Pt will negotiate at least 4 steps using railings with CGA in order to enter/exit the home PT PEER COUNSELOR GOAL 4: Caregiver will attend family education and demonstrate ability to assist pt with functional mobility for safe discharge home Current Physical Therapy Goals: PT SHORT TERM GOAL 1: Pt will perform all bed mobility with supervision Anticipated End Date-Goal 1: 02/07/23 PT SHORT TERM GOAL 2: Pt will perform transfers using LRAD with supervision Anticipated End Date-Goal 2: 02/07/23 PT SHORT TERM GOAL 3: Pt will ambulate at least 150 feet using LRAD with CGA Anticipated End Date-Goal 3: 02/07/23 PT SHORT TERM GOAL 4: Pt will negotiate at least 1 six inch step using railings with CGA Anticipated End Date-Goal 4: 02/07/23 PT SHORT TERM GOAL 5: Pt will perform standing balance activity for at least 1 minute with one to no UE support with CGA to reduce fall risk Anticipated End Date-Goal 5: 02/07/23 Subjective: Pt sitting in recliner upon entering room. No family present. Pt reported feeling better and was agreeable to therapy Objective/Assessment: ADL: pt required to don clothing. He required minimal assist to don clothing in combination of standing and sitting positions Transfers: Pt performed stand step transfer to/from manual wheelchair and NuStep with CGA for balance/safety using RW Ambulation: Pt ambulated 100 feet using RW with CGA for balance/safety over level tile. Pt attempted to ambulate again however has to stop after 10 feet reporting increased fatigue and dizziness. Pt noted to demonstrate UE tremors. Pt returned to sitting for rest. BP 128/66. HR 83 After sitting rest break he denied any further dizziness LE strengthening: -NuStep using LE component only on workload 1 for 10 minutes -continuous sit to stand 2 sets 5 -propelled manual wheelchair 80 feet using LE's hamstring strengthening Pt required extended seated rest break after using NuStep due to report of pain of anterior tibialis. Pt reported feeling that he had a cramp. Pt demonstrated impaired cognition throughout session placing him at high risk for falls Handoff to Leyla PHIPPS Plan: Progress plan of care focusing on standing balance, strengthening and activity tolerance Leigha Warren, PT, DPT * Leigha Warren PT - 01/31/2023 12:18 PM EDT PHYSICAL THERAPY WEEKLY UPDATE Patient Name: Raghu Rosenthal Date: 01/31/2023 PRECAUTIONS Fall, Cardiac (No heavy lifting (>10lbs), pushing, or pulling until insertion site is healed for 4-6 weeks. Donot raise your arm above shoulder level or stretch for 4-6 weeks) PEER COUNSELOR GOALS LTG Anticipated Completion: by discharge date. PT PEER COUNSELOR GOAL 1: Pt will perform transfers using LRAD modified independent in order to decreaseburden of care PT PEER COUNSELOR GOAL 2: Pt will ambulate at least 200 feet using LRAD with supervision in order to navigate his home and community PT FDC GOAL 3: Pt will negotiate at least 4 steps using railings with CGA in order to enter/exit the home PT FDC GOAL 4: Caregiver will attend family education and demonstrate ability to assist pt with functional mobility for safe discharge home SHORT TERM GOALS Previous Current 01/27/2023 4:14 PM 01/31/2023 12:11 PM Short Term Goals-Previous Week/Current SHORT TERM GOAL 1 Pt will transfer with CGA of 1 Pt will perform all bed mobility with supervision Anticipated End Date 02/03/2023 02/07/2023 SHORT TERM GOAL 2 Pt will ambulate 100 feet with RW with SBA of 1 Pt will perform transfers using LRAD with supervision Anticipated End Date 02/03/2023 02/07/2023 SHORT TERM GOAL 3 Pt will ambulate at least 150 feet using LRAD with CGA Anticipated End Date 02/07/2023 SHORT TERM GOAL 4 Pt will negotiate at least 1 six inch step using railings with CGA Anticipated End Date 02/07/2023 SHORT TERM GOAL 5 Pt will perform standing balance activity for at least 1 minute with one to no UEsupport with CGA to reduce fall risk Anticipated End Date 02/07/2023 PROGRESS TOWARD GOALS Pt has made limited progress with therapy. He has been unable to participate in recent sessions dueto pain from constipation and fatigue. Currently pt performing transfers with CGA using RW and ambulating up to 100 feet with CGA using RW Pt further limited by impaired standing balance, impaired activity tolerance, impaired cognition, UE/LE weakness Barriers to discharge: Pt will require 24/ care due to impaired cognition DME and follow up therapy to be determined CURRENT TREATMENT PLAN PT Interventions: Balance re-education, Discharge planning, Durable medical equipment assessment, Functional mobility training, Gait training, Wheelchair mobility training, Transfer training, Therapeutic exercise, Patient/Caregiver education, Neuromuscular re-education Modalities: Cold therapy, Heat therapy PT Intensity (Hours per Day): at least 1 hour PT Frequency (Days per Week): at least 5 days PT Duration: 14 days from initial evaluation Potential to Achieve PT Goals: Fair Patient: has reviewed PT treatment plan. Patient unable to review PT treatment plan due to : Questionable understanding due to impaired cognition Family/Caregiver : has reviewed PT treatment plan., understands PT treatment plan., agrees with PT treatment plan. Family member/caregiver PT treatment plan was discussed with : Leigha Warren, PT, DPT * Anais Mcgovern, OTR/L - 01/31/2023 10:30 AM EDT Attempted to see patient for scheduled therapy session. He is off unit at this time. Missed 60 minutes OT. Will attempt to make up missed time as schedule allows. JACK Haile/Jessica * Yann Fields, - 01/31/2023 7:18 AM EDT Images from the original note were not included. Department of Physical Medicine and Rehabilitation Rehab Physician Progress Note Raghu Rosenthal, 77yrs Male Admit Date: 01/26/2023 Today's Date: 01/31/2023 Drug Regimen Review Completed: Yes The following clinically significant medication issues were identified over the last 24 hours: See below. Subjective/Interval Events: Patient seen and examined with the attending physician. NAVIDSDesiree MACIAS. Patient eating at 50-75%. Denies uncontrolled pain. Pertinent Interval events: Patient cleared for therapies. Patient scheduled for hog enema last night due to lack of bowel movement, but was able to have 4 on own. Will decrease bowel regimen today toallow bowel rest after large stool with goal of regular bowel movements at least every 2-3 days. Patient eager to go home and would like to go before his anniversary on 02/12, and will discuss discharge plan tomorrow in [facility]. No further questions or concerns at this time. Bowel/Bladder last 24 hours: Urine x6/BM x4 NOTE: This document was prepared using a combination of digital dictation and [employer]. Any transcriptional errors that result from this process are unintentional. Full ROS was performed and is otherwise negative unless noted above Objective: Vitals: Temp: 36.5 ??C (97.7 ??F) BP: 97/60 Pulse: 76 Resp: 16 SpO2: 97 % Height: 175.3 cm Weight: 108.4 kg Body mass index is 35.27 kg/m??. Physical Exam: General: Appears well developed and well nourished. Not diaphoretic. Pleasant and cooperative with exam. Sitting up in chair in room Eyes: Eyes anicteric, not injected. Cardiovascular: Extremities well perfused and distal pulses intact, minimal edema. RRR Respiratory: Normal work of breathing on room air. No signs of respiratory distresss Gastrointestinal: Abdomen soft and nontender Musculoskeletal: no obvious deformities or swelling RUE: 01/26 LUE: 01/26 RLE: 01/26 LLE: 01/26 Neurologic Mental Status: Intact speech and language. Orientation, attention, memory, and fund of knowledge are intact as manifested by the patient's ability to furnish a complete and lucid medical history. Integumentary: Warm and dry. No erythema or rashes noted. Right femoral/groin surgical wound with malodorous discharge, non tender, left femoral/groin surgical wound with scant blood discharge, non tender Psychiatric: Mood and behavior normal. All systems above examined with findings unchanged unless otherwise noted Labs: No results for input(s): WBC, HGB, HCT, MCV, PLATELET, BANDEST in the last 72 hours. Invalid input(s): NEUTROPHIL % Recent Labs 01/29/23 1635 01/29/23201201/30/23 0743 GLUCOSE 111* 88 92 Recent Labs 01/30/23 0743 GLUCOSE POCT 92 12/28/2022: Hemoglobin A1C 5.0 % 01/08/2023: Hematocrit 28.2 % (L) 01/12/2023: WBC, Urine 4 /HPF (H) 01/21/2023: Hemoglobin, Urine Negative 01/27/2023: WBC (White Blood Cell Count) 4.24 k/uL (L); Hemoglobin 10.0 g/dL (L); Neutrophils (%) 48 %; MCV (Mean Corpuscular Volume) 97.6 fL; Platelet Count 97 k/uL (L) 12/28/2022: Est Avg Glucose 97 mg/dL 01/21/2023: Glucose, Urine Negative 01/26/2023: Glucose 105 mg/dL (H) 01/27/2023: Sodium 131 mEq/L (L); Potassium 3.5 mEq/L; Chloride 97 mEq/L (L); CO2 24 mEq/L; BUN 58 mg/dL (H); Bun:Creat Ratio 30.05; Creatinine 1.93 mg/dL (H); Glucose 83 mg/dL Radiology reviewed No results found. aspirin, 81 mg, DAILY clopidogreL, 75 mg, DAILY diclofenac sodium, 4 g, QID docusate sodium, 100 mg, BID enoxaparin (LOVENOX) injection, 40 mg, DAILY AT 1600 escitalopram, 20 mg, DAILY evolocumab, 140 mg, Q2WKS gabapentin, 100 mg, QHS hog, 1 Enema, ONCE metoprolol succinate XL, 25 mg, DAILY polyethylene glycol, 17 g, DAILY potassium chloride, 40 mEq, DAILY senna, 1 Tablet, QPM sodium chloride, 3 mL, Q8HR spironolactone, 25 mg, DAILY tiotropium bromide, 2 Inhalation, RTDAILY torsemide, 60 mg, BID traZODone, 50 mg, QPM acetaminophen tablet, 650 mg, [id number] bisacodyL, 10 mg, DAILY-PRN dextrose, 15 g, PRN dextrose 50% in water, 25 mL, PRN dextrose 50% in water, 50 mL, PRN docusate sodium, 100 mg, DAILY-PRN hydrALAZINE, 25 mg, [id number] ondansetron, 4 mg, I8MC-ZLT ondansetron ODT, 4 mg, G6YV-AFG oxyCODONE, 5 mg, Y8KA-NEN simethicone, 80 mg, [id number]-GTA Assessment/Plan: Raghu Rosenthal a 77yrs old Male admitted to [facility] on 12/28/2022 for NSTEMI and valve replacement. Hospital course complicated by respiratory distress and RTA for worsening encephalopathy. Impaired mobility and ADLs - impaired mobility and ADLs resulting from the above and multiple comorbidities, would benefit from rehab for the following: PT: balance, functional mobility, gait training, orthotics/prosthetic training, transfer training, improving strength, improving endurance, wheelchair mobility, education on assistive devices OT: ADLs, iADLs, adaptive equipment training, transfer training 01/08/23 TransCatheter Aortic Valve Replacement ([id number], 26 Medtronic Evolut Pro, via the Left Transfemoral Approach) EF 35% (01/08/2023) Cardiogenic shock Acute on chronic HFrEF NSTEMI HLD -Therapies as above -U Cardiology following -Strict I's and O's, daily [...] lipitor will resume home crestor, ct trilipix - 01/25 per Cardiology, dressing removed from surgical site. Steri-strips intact. Acute encephalopathy- resolved Mental status changes have resolved. Per IM Dr. Head, most likely hospital delirium. - work up from acute: ammonia wnL, Bcx NgTD, no leukocytosis - Urinalysis not obtained in acute CKD stage 3 Baseline creatinine ~ 1.5-1.6 Recent Labs 01/24/23 0336 01/26/23 0456 01/27/23 0306 CREATININE 2.14* 2.01* 1.93* - avoid nephrotoxic agents and renally dose all required medicines - CTM Psoriatic arthropathy Chronic Right shoulder pain OA of bilateral knees - therapies as above - MMPT PTSD Depressive disorder - consult CYLINDER GRINDER - continue lexapro Class 2 Obesity Body mass index is 39.64 kg/m??. - nutrition/security control center operator counseling - DM diet w/o sweets or juice - consider [facility] with Dr. Nettles ASthma OLIVIER - cipap while in IPR - continue spiriva and prn albuterol Hx of TIA Cerebellar stroke SAH - therapies as above - DAPT (30 days of plavix) and statin GERD - continue PPI Constipation - 01/29 enema ordered for this evening - 01/30 good BM today with 2x digital stimulation by RN, lactulose also ordered - 01/31 decrease bowel regimen after for 4 Bm's yesterday DVT Prophylaxis: lovenox GI Prophylaxis: PPI Diet: cardiac/renal Bowel Regimen: 01/27 increased colace to 200 mg bid, started MiraLAX and senna on 01/28 Code status was discussed with the patient and the patient is Full code Estimated date of Discharge: 7-10 Days Rehabilitation Potential: good Discharge Destination: Home with caregiver support Skin: No Pressure injury/ulcer Pressure Ulcer Risk Conditions: none Yann Fields DO Associated attestation - Beverly Nettles MD - 02/01/2023 10:01 AM EDT ATTENDING PRECEPTOR NOTE The patient was seen with the resident today;01/31/2023. I performed the critical/velasco portions of the service and agree with the rehab assessment and plan of care that we discussed as documented with my highlights/additions below: Provider electronic signature: Beverly Nettles MD Clinical Mule Operator [facility] [employer] [place] [employer] [place] [employer] * Jacob Dunlap RN - 01/31/2023 4:08 AM EDT Problem: Adult Inpatient Plan of Care Goal: Plan of Care Review Outcome: Ongoing, Progressing Plan of Care Reviewed With: patient Note: Shift summary: Patient alert and oriented x4. No complaints of pain or discomfort thus far. Dressings to bilateral groin remain dry and intact on assessment. Patient continent vs incontinent ofbowel this shift and is having large loose stools. Patient refused scheduled bowel medications. PIVis patent and saline locked. Patient refused SCDs and was educated. No SCD machine was ordered due to patient refusal. Patient is being educated to use call green for assistance as needed. Bed in low,locked position, and call green is in reach. Patient is being educated of the need to ask for pain medications to manage pain and prior to therapy or periods of activity so they can participate comfortably. Patient is receiving education about proper methods to keep from developing skin breakdown, including decreasing pressure, cleansing and lubricating skin, and hydration and nutrition. Patient was rounded on throughout the shift by staff members. * Jacob Dunlap RN - 01/30/2023 8:48 PM EDT Problem: Fall Injury Risk Goal: Absence of Fall and Fall-Related Injury Description: Patient will recognize the appropriate safety interventions to prevent falls risks by and be able to state falls risk by 02-06-2023 . Outcome: Ongoing, Progressing Note: Patient needs further education in regards to the safety interventions to prevent falls at this time. This goal is ongoing. * Wesley Oates RN - 01/30/2023 6:28 PM EDT Problem: Adult Inpatient Plan of Care Goal: Plan of Care Review Shift summary: Patient alert and oriented x4. PRN Ronald given x1 this shift for pain to anus. Takes P.O. meds whole floated in apple sauce. Incontinent of bladder and bowel this shift. Dressing order placed for malodorous rt groin incision; dressing done. Participated with scheduled therapies. Patient educated to use call green for assistance as needed. Bed remains in low/locked position and call green within reach. Patient educated of the need to ask for pain medications to manage pain and prior to therapy or periods of activity so they can participate comfortably. Patient is receiving ongoing education regarding proper methods to keep from developing skin breakdown, including decreasing pressure, cleansing skin, and proper hydration/nutrition. Patient was rounded on throughout the shift bystaff members. Outcome: Ongoing, Progressing Problem: Fall Injury Risk Goal: Absence of Fall and Fall-Related Injury Description: Patient will recognize the appropriate safety interventions to prevent falls risks by and be able to state falls risk by 02-06-2023 . Outcome: Ongoing, Progressing * Leigha Warren, PT - 01/30/2023 2:00 PM EDT Problem: Physical Therapy Goal: PT Daily Note Note: PHYSICAL THERAPY DAILY NOTE Patient Name: Raghu Rosenthal Date of :1945 Age: 77yrs Date: 01/30/2023 Session 1: Time In 1400 Time Out 1400 Precautions: Fall, cardiac, pacemaker Physical Therapy Maintenance Foreman Goals LTG Anticipated Completion: by discharge date. PT Maintenance Foreman Goals PT PEER COUNSELOR GOAL 1: Pt will be independent with all transfers PT PEER COUNSELOR GOAL 2: Pt will ambulate 200 feet with LRAD mod independently PT FDC GOAL 3: Pt will navigate 4 steps with one handrail mod independently Current Physical Therapy Goals: PT SHORT TERM GOAL 1: Pt will transfer with CGA of 1 Anticipated End Date-Goal 1: 02/03/23 PT SHORT TERM GOAL 2: Pt will ambulate 100 feet with RW with SBA of 1 Anticipated End Date-Goal 2: 02/03/23 Subjective: Pt declined PT due to pain from constipation despite encouragement. Pt moaning in pain. Dr. Massey nursing informed. Plan: Progress plan of care as tolerated Leigha Warren, PT, DPT * Anais Mcgovern OTR/Jessica - 01/30/2023 1:15 PM EDT Problem: Occupational Therapy Goal: OT Daily Note Note: OCCUPATIONAL THERAPY DAILY NOTE Patient Name: Raghu Rosenthal Date of :1945 Age: 77yrs Date: 01/30/2023 Session 1: Time In 0830 Time Out 1000 Session 2: Time In 1300 Time Out 1300 Session 3: Time In 1315 Time Out 1315 (reattempted) OT minutes missed: 30 minutes d/t pain Precautions: Fall, pacemaker, cardiac Occupational Therapy Maintenance Foreman Goals: LTG Anticipated Completion: by discharge date. OT Maintenance Foreman Goals OT PEER COUNSELOR GOAL 1: Mr. Rosenthal will get ready for the day (bathing, dressing, grooming, toileting) with supervision and AE/DME as needed while adhering to precautions. OT FDC GOAL 2: Mr. Rosenthal will complete bathroom transfers as in home setup (toilet, tub/shower) with supervision and LRAD while adhering to precautions OT PEER COUNSELOR GOAL 3: Mr. Rosenthal will complete a simple IADL task with supervision while adhering to precautions Current Occupational Therapy Goals: OT SHORT TERM GOAL 1: Mr. Rosenthal will complete standing trials of at least 5 minutes for increased independence with self care tasks. Anticipated End Date-Goal 1: 02/02/23 OT SHORT TERM GOAL 2: Mr. Rosenthal will complete LB dressing with CGA for increased independence with self care tasks Anticipated End Date-Goal 2: 02/02/23 OT SHORT TERM GOAL 3: Mr. Rosenthal will complete foot wear with no more than supervision for increasedindependence with self care tasks. Anticipated End Date-Goal 3: 02/02/23 OT SHORT TERM GOAL 4: Mr. Rosenthal will complete a toilet transfer with no more than CGA while adhering to precautions for increased independence with functional mobility Anticipated End Date-Goal 4: 02/02/23 OT SHORT TERM GOAL 5: Mr. Rosenthal will complete a simple IADL task with no more than minimal verbal cues for adhering to task and problem solving. Anticipated End Date-Goal 5: 02/02/23 OT SHORT TERM GOAL 6: Mr. Rosenthal will participate in therapeutic procedures/activities at least 15 min/day and 3 days/week for increased strength and endurance for ADL, IADL, and functional mobility. Anticipated End Date-Goal 6: 02/02/23 OT SHORT TERM GOAL 7: Mr. Rosenthal will verbalize pacemaker precautions with no more than minimal verbal cues. Anticipated End Date-Goal 7: 02/02/23 Subjective: Session 1: Patient agreeable to OT session. Denies pain. 1300: Patient not agreeable to OT session. Moaning in pain d/t constipation. His requesting Champ come back in 10-15 minutes. 1315: Patient continues to decline therapy at this time d/t pain from constipation. Objective/Assessment: Session 1: Patient received seated EOB with . No family or caregiver present. Agreeable to shower. He requires cues throughout to adhere to pacemaker precautions. ADL: Feeding: Level of Assist: 6= Independent/ Modified independence (Quality Indicator Score) Reason for Assist: N/A Adaptive Equipment/Alternative Methods Used: N/A Position: seated EOB Grooming (oral care): Level of Assist: 6= Independent/ Modified independence (Quality Indicator Score) Reason for Assist: N/A Adaptive Equipment/Alternative Method Used: N/A Position: seated at sink Dressing Upper Body: Level of Assist: 5= Set-up or clean-up assistance (Quality Indicator Score) Reason for Assist: gather clothing Adaptive Equipment/Alternative Method Used: pacemaker precautions Position: seated Dressing Lower Body: Level of assist: 3= Partial/moderate assistance (Quality Indicator Score) Reason for Assist: safety and balance, donning diaper d/t small BMs Clothing Donned: diaper, shorts Adaptive equipment/alternative method used: N/A Position: seated and standing Footwear: Level of assist: 5= Set-up or clean-up assistance (Quality Indicator Score) Reason for Assist: gather shoes Adaptive equipment/alternative method used: N/A Position: seated Bathing: Level of Assist: 3= Partial/moderate assistance (Quality Indicator Score) Reason for Assist: impaired endurance, pacemaker precautions, impaired standing balance/tolerance (assist with bathing hair, bottom, lower legs/feet) Adaptive Equipment/Alternative Method Used: pacemaker precautions, grab bars, shower bench, HH shower head Position: seated and standing Toileting: Level of Assist: 4= Supervision or touching assistance (Quality Indicator Score) Reason for Assist: safety Adaptive Equipment/Alternative Method Used: pacemaker precautions Position: seated and standing Toilet Transfer: Level of Assist: 4= Supervision or touching assistance (Quality Indicator Score) Reason for Assist: safety and balance Adaptive Equipment/Alternative Method Used: grab bars Type of Transfer: stand step Shower/Tub Transfer: Level of Assist: 4= Supervision or touching assistance (Quality Indicator Score) Reason for Assist: safety and balance Adaptive Equipment/Alternative Method Used: grab bars, shower bench Type of Transfer: stand step Transfers: Surface(s): EOB>w/c Level of Assist: CGA Reason of Assist: safety and balance Adaptive Equipment/Alternative Method Used: N/A Type of Transfer: stand step At completion of session, patient left seated in w/c, with all needs addressed or in reach (phone, call green). at bedside. Handoff communication to JULIA Olson. 1300: Patient received seated in recliner currently in a lot of pain. Awaiting RN to bring him painmedication. Patient left as found. ------- 1315: Reattempted to see patient but he continues to be in a lot of pain from constipation. JULIA Olson aware of patient's status and declining therapy at this time. Missed 30 minutes OT. Patient left as found. Plan: Endurance, standing tolerance/balance JACK Haile/Jessica * Louis Lowe MD - 01/30/2023 12:55 PM EDT Images from the original note were not included. Department of Physical Medicine and Rehabilitation Rehab Physician Progress Note Raghu Rosenthal, 77yrs Male Admit Date: 01/26/2023 Today's Date: 01/30/2023 Drug Regimen Review Completed: Yes The following clinically significant medication issues were identified over the last 24 hours: See below. Subjective/Interval Events: No acute events overnight. Patient seen and examined with attending physician. VSS and remains afebrile. No AM labs today. Blood sugars are appropriate (detailed below in objective findings). Patient continues to have issues having bowel movements despite fleets enema yesterday. Will try lactulose today. Eating 100% of meals. Tolerating therapies thus far. No issues with bladder. All questions and concerns addressed.No acute concerns from nursing staff this morning other than the above. Remains cleared for therapies at this time. Objective: Vitals: Temp: 36.8 ??C (98.3 ??F) BP: 106/51 Pulse: 75 Resp: 19 SpO2: 97 % Height: 175.3 cm Weight: 108.4 kg Body mass index is 35.27 kg/m??. Physical Exam: General: Appears well developed and well nourished. Not diaphoretic. Pleasant and cooperative with exam Eyes: Eyes anicteric, not injected. Cardiovascular: Extremities well perfused and distal pulses intact, no edema Respiratory: Normal work of breathing on room air Gastrointestinal: Abdomen soft and nontender Genitourinary: No palpable bladder distention. Bruno present. Musculoskeletal: no obvious deformities or swelling RUE: 01/26 LUE: 01/26 RLE: 01/26 LLE: 01/26 Neurologic Mental Status: Intact speech and language. Orientation, attention, memory, and fund of knowledge are intact as manifested by the patient's ability to furnish a complete and lucid medical history. Integumentary: Warm and dry. No erythema or rashes noted. Right femoral/groin surgical wound with malodorous discharge, non tender, left femoral/groin surgical wound with scant blood discharge, non tender Psychiatric: Mood and behavior normal. All systems above examined with findings unchanged unless otherwise noted Labs: No results for input(s): WBC, HGB, HCT, MCV, PLATELET, BANDEST in the last 72 hours. Invalid input(s): NEUTROPHIL % Recent Labs 01/29/23 1635 01/29/23201201/30/23 0743 GLUCOSE 111* 88 92 Recent Labs 01/30/23 0743 01/29/23201201/29/23 1635 GLUCOSE POCT 92 88 111* 12/28/2022: Hemoglobin A1C 5.0 % 01/08/2023: Hematocrit 28.2 % (L) 01/12/2023: WBC, Urine 4 /HPF (H) 01/21/2023: Hemoglobin, Urine Negative 01/27/2023: WBC (White Blood Cell Count) 4.24 k/uL (L); Hemoglobin 10.0 g/dL (L); Neutrophils (%) 48 %; MCV (Mean Corpuscular Volume) 97.6 fL; Platelet Count 97 k/uL (L) 12/28/2022: Est Avg Glucose 97 mg/dL 01/21/2023: Glucose, Urine Negative 01/26/2023: Glucose 105 mg/dL (H) 01/27/2023: Sodium 131 mEq/L (L); Potassium 3.5 mEq/L; Chloride 97 mEq/L (L); CO2 24 mEq/L; BUN 58 mg/dL (H); Bun:Creat Ratio 30.05; Creatinine 1.93 mg/dL (H); Glucose 83 mg/dL Radiology reviewed No results found. aspirin, 81 mg, DAILY clopidogreL, 75 mg, DAILY diclofenac sodium, 4 g, QID docusate sodium, 200 mg, BID enoxaparin (LOVENOX) injection, 40 mg, DAILY AT 1600 escitalopram, 20 mg, DAILY evolocumab, 140 mg, Q2WKS gabapentin, 100 mg, QHS hog, 1 Enema, ONCE metoprolol succinate XL, 25 mg, DAILY polyethylene glycol, 17 g, DAILY potassium chloride, 40 mEq, DAILY senna, 2 Tablet, QPM sodium chloride, 3 mL, Q8HR sodium chloride, 3 mL, Q8HR spironolactone, 25 mg, DAILY tiotropium bromide, 2 Inhalation, RTDAILY torsemide, 60 mg, BID traZODone, 50 mg, QPM acetaminophen tablet, 650 mg, [id number]-[id number] bisacodyL, 10 mg, DAILY-PRN dextrose, 15 g, PRN dextrose 50% in water, 25 mL, PRN dextrose 50% in water, 50 mL, PRN docusate sodium, 100 mg, DAILY-PRN hydrALAZINE, 25 mg, Z3GW-SEX ondansetron, 4 mg, D7TP-HZS ondansetron ODT, 4 mg, [id number]-[id number] oxyCODONE, 5 mg, Z3LC-MAQ simethicone, 80 mg, I6KR-ADV Assessment/Plan: Raghu Rosenthal a 77yrs old Male admitted to [facility] on 12/28/2022 for NSTEMI and valve replacement. Hospital course complicated by respiratory distress and RTA for worsening encephalopathy. Impaired mobility and ADLs - impaired mobility and ADLs resulting from the above and multiple comorbidities, would benefit from rehab for the following: PT: balance, functional mobility, gait training, orthotics/prosthetic training, transfer training, improving strength, improving endurance, wheelchair mobility, education on assistive devices OT: ADLs, iADLs, adaptive equipment training, transfer training 01/08/23 TransCatheter Aortic Valve Replacement ([id number], 26 Medtronic Evolut Pro, via the Left [...] lipitor will resume home crestor, ct trilipix - 01/25 per Cardiology, dressing removed from surgical site. Steri-strips intact. Acute encephalopathy- resolved Mental status changes have resolved. Per IM Dr. Head, most likely hospital delirium. - work up from acute: ammonia wnL, Bcx NgTD, no leukocytosis - Urinalysis not obtained in acute CKD stage 3 Baseline creatinine ~ 1.5-1.6 Recent Labs 01/24/23 0336 01/26/23 0456 01/27/23 0306 CREATININE 2.14* 2.01* 1.93* - avoid nephrotoxic agents and renally dose all required medicines - CTM Psoriatic arthropathy Chronic Right shoulder pain OA of bilateral knees - therapies as above - MMPT PTSD Depressive disorder - consult CYLINDER GRINDER - continue lexapro Class 2 Obesity Body mass index is 39.64 kg/m??. - nutrition/security control center operator counseling - DM diet w/o sweets or juice - consider [facility] with Dr. Nettles ASthma OLIVIER - cipap while in IPR - continue spiriva and prn albuterol Hx of TIA Cerebellar stroke SAH - therapies as above - DAPT (30 days of plavix) and statin GERD - continue PPI Constipation - 01/29 enema ordered for this evening - 01/30 good BM today with 2x digital stimulation by RN, lactulose also ordered DVT Prophylaxis: lovenox GI Prophylaxis: PPI Diet: cardiac/renal Bowel Regimen: 01/27 increased colace to 200 mg bid, started MiraLAX and senna on 01/28 Code status was discussed with the patient and the patient is Full code Estimated date of Discharge: 7-10 Days Rehabilitation Potential: good Discharge Destination: Home with caregiver support Skin: No Pressure injury/ulcer Pressure Ulcer Risk Conditions: none Louis Lowe MD Associated attestation - Beverly Nettles MD - 01/30/2023 6:28 PM EDT ATTENDING PRECEPTOR NOTE The patient was seen with the resident today;01/30/2023. I performed the critical/velasco portions of the service and agree with the rehab assessment and plan of care that we discussed as documented with my highlights/additions below: Provider electronic signature: Beverly Nettles MD Clinical Mule Operator [facility] [place] [employer] [place] [employer] * FroilanLeney, OTR/L - 01/30/2023 12:30 PM EDT OCCUPATIONAL THERAPY WEEKLY SUMMARY Patient Name: Raghu Rosenthal Date: 01/30/2023 PRECAUTIONS Fall, Cardiac, and pacemaker FDC GOALS LTG Anticipated Completion: by discharge date. OT FDC GOAL 1: Mr. Rosenthal will get ready for the day (bathing, dressing, grooming, toileting) with supervision and AE/DME as needed while adhering to precautions. OT FDC GOAL 2: Mr. Rosenthal will complete bathroom transfers as in home setup (toilet, tub/shower) with supervision and LRAD while adhering to precautions OT PEER COUNSELOR GOAL 3: Mr. Rosenthal will complete a simple IADL task with supervision while adhering to precautions SHORT TERM GOALS Previous Current 01/27/2023 3:00 PM 01/30/2023 12:29 PM Short Term Goals-Previous Week/Current SHORT TERM GOAL 1 NOT MET/ONGOING - Mr. Rosenthal will complete standing trials of at least 5 minutes for increased independence with self care tasks. Mr. Rosenthal will complete standing trials of at least 5 minutes for increased independence with self care tasks. Anticipated End Date 02/02/2023 02/08/2023 SHORT TERM GOAL 2 MET/UPDATED - Mr. Rosenthal will complete LB dressing with CGA for increased independence with self care tasks Mr. Rosenthal will complete LB dressing with supervision for increased independence with self care tasks Anticipated End Date 02/02/2023 02/08/2023 SHORT TERM GOAL 3 MET/UPDATED - Mr. Rosenthal will complete foot wear with no more than supervision forincreased independence with self care tasks. Mr. Rosenthal will complete foot wear with no more than setup for increased independence with self care tasks. Anticipated End Date 02/02/2023 02/08/2023 SHORT TERM GOAL 4 NOT MET/ONGOING - Mr. Rosenthal will complete a toilet transfer with no more than CGAwhile adhering to precautions for increased independence with functional mobility Mr. Rosenthal will complete a toilet transfer with no more than CGA while adhering to precautions for increased independence with functional mobility Anticipated End Date 02/02/2023 02/08/2023 SHORT TERM GOAL 5 NOT MET/ONGOING - Mr. Rosenthal will complete a simple IADL task with no more than minimal verbal cues for adhering to task and problem solving. Mr. Rosenthal will complete a simple IADL task with no more than minimal verbal cues for adhering to task and problem solving. Anticipated End Date 02/02/2023 02/08/2023 SHORT TERM GOAL 6 MET/ONGOING - Mr. Rosenthal will participate in therapeutic procedures/activities at least 15 min/day and 3 days/week for increased strength and endurance for ADL, IADL, and functional mobility. Mr. Rosenthal will participate in therapeutic procedures/activities at least 15 min/day and 3 days/week for increased strength and endurance for ADL, IADL, and functional mobility. Anticipated End Date 02/02/2023 02/08/2023 SHORT TERM GOAL 7 NOT MET/ONGOING - Mr. Rosenthal will verbalize pacemaker precautions with no more than minimal verbal cues. Mr. Rosenthal will verbalize pacemaker precautions with no more than minimal verbal cues. Anticipated End Date 02/02/2023 02/08/2023 PROGRESS TOWARD GOALS Raghu Rosenthal has met 3/7 short term occupational therapy goals this week. Limitations/areas we are continuing to address: impaired cognition, impaired standing balance/tolerance, impaired strength, impaired endurance, pacemaker precautions, constipation Barriers to d/c: will currently require 24/7 assist Hoping to progress to: supervision DME and follow up therapy: TBD. Current functional levels for ADLs: Raghu Rosenthal requires min/mod A for ADLs, and CG-min A for functional transfers. CURRENT TREATMENT PLAN OT Interventions: Activities of daily living, Instrumental activities of daily living, Adaptive equipment/DME recommendations, Transfer training, Therapeutic activities, Therapeutic procedures, Neuromuscular reeducation, Cognitive retraining, Patient/Caregiver education, Visual-perceptual retraining OT Intensity (Hours per Day): 1-2 OT Frequency (Days per Week): 5-6 OT Duration: 7-10 days Potential to Achieve OT Goals: Good Patient: has reviewed OT treatment plan., understands OT treatment plan., agrees with OT treatment plan. Family/Caregiver : Family/Caregiver unavailable. JACK Haile/Jessica * Fabienne Uribe RN - 01/30/2023 4:57 AM EDT Problem: Adult Inpatient Plan of Care Goal: Plan of Care Review Outcome: Ongoing, Progressing Note: Shift summary: Patient alert and oriented x4. Patient uses CPAP at night (self administration). Left forearm IV canula patent,flushed and saline locked.No complaints of pain or discomfort thus far. Patient is being educated to use call green for assistance as needed. Bed in low, locked position, and call green is in reach. Patient is being educated of the need to ask for pain medications to manage pain and prior to therapy or periods of activity so they can participate comfortably. Patient is receiving education about proper methods to keep from developing skin breakdown, including decreasing pressure, cleansing and lubricating skin, and hydration and nutrition. Patient was rounded on out the shift by staff members. * Fabienne Uribe RN - 01/30/2023 3:26 AM EDT Problem: Fall Injury Risk Goal: Absence of Fall and Fall-Related Injury Description: Patient will recognize the appropriate safety interventions to prevent falls risks by and be able to state falls risk by 02-06-2023 . Outcome: Ongoing, Progressing Note: Patient needs further education in regards to the safety interventions to prevent falls at this time. This goal is ongoing. * Leyla Davenport COTA/Jessica - 01/29/2023 3:14 PM EDT Problem: Occupational Therapy Goal: OT Daily Note Note: OCCUPATIONAL THERAPY DAILY NOTE Patient Name: Raghu Rosenthal Date of :1945 Age: 77yrs Date: 01/29/2023 Session 1: Time In 1100 Time Out 1130 Precautions: Fall Occupational Therapy Maintenance Foreman Goals: LTG Anticipated Completion: by discharge date. OT Care Home Goals OT PEER COUNSELOR GOAL 1: Mr. Rosenthal will get ready for the day (bathing, dressing, grooming, toileting) with supervision and AE/DME as needed while adhering to precautions. OT FDC GOAL 2: Mr. Rosenthal will complete bathroom transfers as in home setup (toilet, tub/shower) with supervision and LRAD while adhering to precautions OT PEER COUNSELOR GOAL 3: Mr. Rosenthal will complete a simple IADL task with supervision while adhering to precautions Current Occupational Therapy Goals: OT SHORT TERM GOAL 1: Mr. Rosenthal will complete standing trials of at least 5 minutes for increased independence with self care tasks. Anticipated End Date-Goal 1: 02/02/23 OT SHORT TERM GOAL 2: Mr. Rosenthal will complete LB dressing with CGA for increased independence with self care tasks Anticipated End Date-Goal 2: 02/02/23 OT SHORT TERM GOAL 3: Mr. Rosenthal will complete foot wear with no more than supervision for increasedindependence with self care tasks. Anticipated End Date-Goal 3: 02/02/23 OT SHORT TERM GOAL 4: Mr. Rosenthal will complete a toilet transfer with no more than CGA while adhering to precautions for increased independence with functional mobility Anticipated End Date-Goal 4: 02/02/23 OT SHORT TERM GOAL 5: Mr. Rosenthal will complete a simple IADL task with no more than minimal verbal cues for adhering to task and problem solving. Anticipated End Date-Goal 5: 02/02/23 OT SHORT TERM GOAL 6: Mr. Rosenthal will participate in therapeutic procedures/activities at least 15 min/day and 3 days/week for increased strength and endurance for ADL, IADL, and functional mobility. Anticipated End Date-Goal 6: 02/02/23 OT SHORT TERM GOAL 7: Mr. Rosenthal will verbalize pacemaker precautions with no more than minimal verbal cues. Anticipated End Date-Goal 7: 02/02/23 Subjective: Patient pleasant and cooperative; agreeable to therapy session. Objective/Assessment: Handoff received from Stephanie Garnett, PT. Patient transferred to the EOM via CG(A). Patient participated in therapeutic activity in standing (removing, replacing and folding pillow cases) requiring him to rotate left/right and reach outside his base of support to address and improve standing tolerance and dynamic balance. Patient was able to stand for 3-5 minutes at a time, taking self paced restbreaks as needed. Patient required no more than CG(A) to standing with moments of only close supervision. Patient handed off to DARNELL Brown. Plan: Continue POC Leyla Davenport COTA/Jessica * Leigha Warren, PT - 01/29/2023 2:40 PM EDT Problem: Physical Therapy Goal: PT Daily Note Note: PHYSICAL THERAPY DAILY NOTE Patient Name: Raghu Rosenthal Date of :1945 Age: 77yrs Date: 01/29/2023 Session 3: Time In 1440 Time Out 1440 Precautions: Fall, Cardiac, and pacemaker, seizures Physical Therapy Care Home Goals LTG Anticipated Completion: by discharge date. PT Care Home Goals PT FDC GOAL 1: Pt will be independent with all transfers PT PEER COUNSELOR GOAL 2: Pt will ambulate 200 feet with LRAD mod independently PT PEER COUNSELOR GOAL 3: Pt will navigate 4 steps with one handrail mod independently Current Physical Therapy Goals: PT SHORT TERM GOAL 1: Pt will transfer with CGA of 1 Anticipated End Date-Goal 1: 02/03/23 PT SHORT TERM GOAL 2: Pt will ambulate 100 feet with RW with SBA of 1 Anticipated End Date-Goal 2: 02/03/23 Subjective: Pt declined PT due to pain from constipation and fatigue despite encouragement. Pt would intermittently lean over and moan in pain. present. RN and Dr. Lowe informed. Plan: Progress plan of care as tolerated Leigha Warren, PT, DPT * Stephanie Abbott PT - 01/29/2023 11:27 AM EDT Problem: Physical Therapy Goal: PT Daily Note Note: PHYSICAL THERAPY DAILY NOTE Patient Name: Raghu Rosenthal Date of :1945 Age: 77yrs Date: 01/29/2023 Session 1: Time In 1035 Time Out 1100- Missed 5 minutes due to schedule, make up in later session. Session 2: Time In 1132 Time Out 1203 Precautions: Fall Physical Therapy Maintenance Foreman Goals LTG Anticipated Completion: by discharge date. PT Care Home Goals PT FDC GOAL 1: Pt will be independent with all transfers PT FDC GOAL 2: Pt will ambulate 200 feet with LRAD mod independently PT PEER COUNSELOR GOAL 3: Pt will navigate 4 steps with one handrail mod independently Current Physical Therapy Goals: PT SHORT TERM GOAL 1: Pt will transfer with CGA of 1 Anticipated End Date-Goal 1: 02/03/23 PT SHORT TERM GOAL 2: Pt will ambulate 100 feet with RW with SBA of 1 Anticipated End Date-Goal 2: 02/03/23 Subjective: Session 1: Mr. Rosenthal was agreeable to therapy sessions and had no complaints of pain at end of session, but 1 report of feeling pain due to constipation. Session 2: Mr. Rosenthal was agreeable to therapy session and had no complaints of pain. Objective/Assessment: Session 1: Mr. Rosenthal was in wheelchair at onset of session. BP 90/53, HR 77. Mr. Rosenthal ambulated 50 feet x 2 trials with use of rolling walker and with contact guard assistance for safety and steadying. He demonstrated decreased gait speed, decreased base of support, decreased step lengths, and decreased hip extension with downward head gaze. He was limited by fatigue and required seated rest break between trials. He performed 10 repetitions of sit to/from standing with supervision to contact guard assistance for safety and steadying with use of rolling walker. Post PT session, patient safely handed over to MOISE Billy. Session 2: Mr. Rosenthal was on mat table at onset of therapy session. He ambulated 45 feet x 2 trials and 30 feetx 2 trials with use of rolling walker initially and then occasional steps without use of rolling walker to work on balance and gait. He required contact guard assistance for safety and steadying withuse of rolling walker, but with use of no assistive device, he required minimal assistance for balance and physical support. He demonstrated decreased gait speed, increased base of support and decreased step lengths. He was limited by fatigue and required seated rest break between trials. He performed 2 trials of walking forward 6 feet followed by backwards 6 feet without use of AD and with minimal assistance for balance and safety. He required contact guard assistance to perform stand step transfer from wheelchair to reclining chair with assistance for safety and steadying at end of session. Post PT session, patient returned to room in reclining chair with brakes locked, call green and possessions in reach, and RNMarguerite, made aware of his return. Plan: Work on functional mobility tasks and gait training. Stephanie Abbott, PT * Taj Gonzalez COTA/Jessica - 01/29/2023 10:35 AM EDT Problem: Occupational Therapy Goal: OT Daily Note Note: OCCUPATIONAL THERAPY DAILY NOTE Patient Name: Raghu Rosenthal Date of :1945 Age: 77yrs Date: 01/29/2023 Session 1: Time In 0935 Time Out 1035 Precautions: Fall, Cardiac, and (No lifting >10lbs, No pushing, No pulling) Occupational Therapy Care Home Goals: LTG Anticipated Completion: by discharge date. OT Care Home Goals OT PEER COUNSELOR GOAL 1: Mr. Rosenthal will get ready for the day (bathing, dressing, grooming, toileting) with supervision and AE/DME as needed while adhering to precautions. OT FDC GOAL 2: Mr. Rosenthal will complete bathroom transfers as in home setup (toilet, tub/shower) with supervision and LRAD while adhering to precautions OT FDC GOAL 3: Mr. Rosenthal will complete a simple IADL task with supervision while adhering to precautions Current Occupational Therapy Goals: OT SHORT TERM GOAL 1: Mr. Rosenthal will complete standing trials of at least 5 minutes for increased independence with self care tasks. Anticipated End Date-Goal 1: 02/02/23 OT SHORT TERM GOAL 2: Mr. Rosenthal will complete LB dressing with CGA for increased independence with self care tasks Anticipated End Date-Goal 2: 02/02/23 OT SHORT TERM GOAL 3: Mr. Rosenthal will complete foot wear with no more than supervision for increasedindependence with self care tasks. Anticipated End Date-Goal 3: 02/02/23 OT SHORT TERM GOAL 4: Mr. Rosenthal will complete a toilet transfer with no more than CGA while adhering to precautions for increased independence with functional mobility Anticipated End Date-Goal 4: 02/02/23 OT SHORT TERM GOAL 5: Mr. Rosenthal will complete a simple IADL task with no more than minimal verbal cues for adhering to task and problem solving. Anticipated End Date-Goal 5: 02/02/23 OT SHORT TERM GOAL 6: Mr. Rosenthal will participate in therapeutic procedures/activities at least 15 min/day and 3 days/week for increased strength and endurance for ADL, IADL, and functional mobility. Anticipated End Date-Goal 6: 02/02/23 OT SHORT TERM GOAL 7: Mr. Rosenthal will verbalize pacemaker precautions with no more than minimal verbal cues. Anticipated End Date-Goal 7: 02/02/23 Subjective: I have so much pain in my bottom Pt c/o 5/10 pain in bottom. Objective/Assessment: Start of Session: Pt seated in recliner. Pt agreeable to OT session. Pt required encouragement for initiation during session. Pt ambulated to w/c with CGA. Pt seated inw/c positioned at sink for washing of perineal area and bottom. Pt completed washing of bottom withCGA for standing balance. Pt declined taking full bath due to helping pt with sponge bath. Pt then completed LBD with CGA and increased time. Pt completed UBD with supervision. Pt required increased time to completed bathing of bottom and dressing tasks. After completion, pt transported to gymvia w/c. While seated in w/c, pt completed placement of graded clothespins onto horizontal rods to facilitate independence with functional tasks. Pt completed placement with RUE and removal with LUE r equiring no assistance from therapist. End of Session: Pt seated in w/c in gym with wheels locked. Handoff initiated to Stephanie Abbott PT Plan: Continue POC JENN Narayan * Louis Lowe MD - 01/29/2023 10:24 AM EDT Images from the original note were not included. Department of Physical Medicine and Rehabilitation Rehab Physician Progress Note Raghu Rosenthal, 77yrs Male Admit Date: 01/26/2023 Today's Date: 01/29/2023 Drug Regimen Review Completed: Yes The following clinically significant medication issues were identified over the last 24 hours: See below. Subjective/Interval Events: No acute events overnight. Patient seen and examined with attending physician. VSS and remains afebrile. No AM labs today. Blood sugars are appropriate (detailed below in objective findings), no change to current diabetes regimen. Patient with no new complaints this morning. Denies pain. Eating 100% of meals. Tolerating therapies thus far. No issues with bladder. He is having issues with bowels. He states over the last severaldays he has the urge but cannot have a full BM. He also has a history of hemorrhoids. With shared decision making, we will proceed with enema this afternoon following therapies. After a good bowel clean out we will also consider anusol suppository for hemorrhoids if the pain persists. All questions and concerns addressed. No acute concerns from nursing staff this morning other than the above. Remains cleared for therapies at this time. Objective: Vitals: Temp: 36.4 ??C (97.6 ??F) BP: 116/85 Pulse: 100 Resp: 17 SpO2: 96 % Height: 175.3 cm Weight: 108.4 kg Body mass index is 35.27 kg/m??. Physical Exam: General: Appears well developed and well nourished. Not diaphoretic. Pleasant and cooperative with exam Eyes: Eyes anicteric, not injected. Cardiovascular: Extremities well perfused and distal pulses intact, no edema Respiratory: Normal work of breathing on room air Gastrointestinal: Abdomen soft and nontender Genitourinary: No palpable bladder distention. Bruno present. Musculoskeletal: no obvious deformities or swelling RUE: 01/26 LUE: 01/26 RLE: 01/26 LLE: 01/26 Neurologic Mental Status: Intact speech and language. Orientation, attention, memory, and fund of knowledge are intact as manifested by the patient's ability to furnish a complete and lucid medical history. Integumentary: Warm and dry. No erythema or rashes noted. Psychiatric: Mood and behavior normal. All systems above examined with findings unchanged unless otherwise noted Labs: Recent Labs 01/27/2330501/27/23 1231 WBC 4.24* -- HGB 10.0* 10.4* HCT 32.5* 34.1* MCV 97.6 -- PLATELET 97* -- Recent Labs 01/27/2330501/27/23 1146 01/28/23161801/28/23194501/29/23 0722 SODIUM 131* -- -- -- -- POTASSIUM 3.5 -- -- -- -- CHLORIDE 97* -- -- -- -- BICARBONATE 24 -- -- -- -- GLUCOSE 83 < > 108* 94 85 BUN 58* -- -- -- -- CREATININE 1.93* -- -- -- -- CALCIUM 7.9* -- -- -- -- PHOSPHORUS 2.5 -- -- -- -- MAGNESIUM 1.5* -- -- -- -- BILIRUBIN 1.1 -- -- -- -- PHOSPHATASE 49 -- -- -- -- TRANSAMINASE 41* 20 -- -- -- -- PROTEIN 5.0* -- -- -- -- ALBUMIN 2.6* -- -- -- -- < > = values in this interval not displayed. Recent Labs 01/29/2372101/28/23194501/28/23161801/28/23 1121 GLUCOSE POCT 85 94 108* 103* 12/28/2022: Hemoglobin A1C 5.0 % 01/08/2023: Hematocrit 28.2 % (L) 01/12/2023: WBC, Urine 4 /HPF (H) 01/21/2023: Hemoglobin, Urine Negative 01/27/2023: WBC (White Blood Cell Count) 4.24 k/uL (L); Hemoglobin 10.0 g/dL (L); Neutrophils (%) 48 %; MCV (Mean Corpuscular Volume) 97.6 fL; Platelet Count 97 k/uL (L) 12/28/2022: Est Avg Glucose 97 mg/dL 01/21/2023: Glucose, Urine Negative 01/26/2023: Glucose 105 mg/dL (H) 01/27/2023: Sodium 131 mEq/L (L); Potassium 3.5 mEq/L; Chloride 97 mEq/L (L); CO2 24 mEq/L; BUN 58 mg/dL (H); Bun:Creat Ratio 30.05; Creatinine 1.93 mg/dL (H); Glucose 83 mg/dL Radiology reviewed No results found. aspirin, 81 mg, DAILY clopidogreL, 75 mg, DAILY docusate sodium, 200 mg, BID enoxaparin (LOVENOX) injection, 40 mg, DAILY AT 1600 escitalopram, 20 mg, DAILY [START ON 02/02/2023] evolocumab, 140 mg, Q2WKS gabapentin, 100 mg, QHS insulin lispro, , TID-WITH MEALS metoprolol succinate XL, 25 mg, DAILY polyethylene glycol, 17 g, DAILY potassium chloride, 40 mEq, DAILY senna, 2 Tablet, QPM sodium chloride, 3 mL, Q8HR sodium chloride, 3 mL, Q8HR spironolactone, 25 mg, DAILY torsemide, 60 mg, BID traZODone, 50 mg, QPM acetaminophen tablet, 650 mg, [id number] bisacodyL, 10 mg, DAILY-PRN dextrose, 15 g, PRN dextrose 50% in water, 25 mL, PRN dextrose 50% in water, 50 mL, PRN docusate sodium, 100 mg, DAILY-PRN hydrALAZINE, 25 mg, [id number] ondansetron, 4 mg, T1JO-POG ondansetron ODT, 4 mg, [id number] oxyCODONE, 5 mg, [id number]-FER simethicone, 80 mg, [id number] Assessment/Plan: Raghu Rosenthal a 77yrs old Male admitted to [facility] on 12/28/2022 for NSTEMI and valve replacement. Hospital course complicated by respiratory distress and RTA for worsening encephalopathy. Impaired mobility and ADLs - impaired mobility and ADLs resulting from the above and multiple comorbidities, would benefit from rehab for the following: PT: balance, functional mobility, gait training, orthotics/prosthetic training, transfer training, improving strength, improving endurance, wheelchair mobility, education on assistive devices OT: ADLs, iADLs, adaptive equipment training, transfer training 01/08/23 TransCatheter Aortic Valve Replacement ([id number], 26 Medtronic Evolut Pro, via the Left [...] lipitor will resume home crestor, ct trilipix - 5/4 per Cardiology, dressing removed from surgical site. Steri-strips intact. Acute encephalopathy- resolved Mental status changes have resolved. Per IM Dr. Head, most likely hospital delirium. - work up from acute: ammonia wnL, Bcx NgTD, no leukocytosis - Urinalysis not obtained in acute CKD stage 3 Baseline creatinine ~ 1.5-1.6 Recent Labs 01/24/23 0336 01/26/23 0456 01/27/23 0306 CREATININE 2.14* 2.01* 1.93* - avoid nephrotoxic agents and renally dose all required medicines - CTM Psoriatic arthropathy Chronic Right shoulder pain OA of bilateral knees - therapies as above - MMPT PTSD Depressive disorder - consult CYLINDER GRINDER - continue lexapro Class 2 Obesity Body mass index is 39.64 kg/m??. - nutrition/security control center operator counseling - DM diet w/o sweets or juice - consider referral [facility] with Dr. Nettles ASthma OLIVIER - cipap while in IPR - continue spiriva and prn albuterol Hx of TIA Cerebellar stroke SAH - therapies as above - DAPT (30 days of plavix) and statin GERD - continue PPI Constipation - 01/29 enema ordered for this evening DVT Prophylaxis: lovenox GI Prophylaxis: PPI Diet: cardiac/renal Bowel Regimen: 01/27 increased colace to 200 mg bid, started MiraLAX and senna on 01/28 Code status was discussed with the patient and the patient is Full code Estimated date of Discharge: 7-10 Days Rehabilitation Potential: good Discharge Destination: Home with caregiver support Skin: No Pressure injury/ulcer Pressure Ulcer Risk Conditions: none Louis Lowe MD Associated attestation - Beverly Nettles MD - 01/30/2023 10:19 AM EDT ATTENDING PRECEPTOR NOTE The chart was reviewed and the patient was interviewed and examined with the resident Dr. Lowe today;01/29/2023. I performed the critical/velasco portions of the service and agree with the rehab assessment and plan of care that we discussed as documented. with highlights/corrections/additions below: C/O persistent constipation in spite multiple bowel regimen,will get fleet enema,remains appropriate to continue with IPR to optimize and maximize functional independence in spite pt's medical illness. Provider electronic signature: Beverly Nettles MD Clinical Mule Operator [facility] [employer] [place] [employer] and [employer] [place] [employer] Medicine * Mildred Stauffer RN - 01/29/2023 5:35 AM EDT Problem: Adult Inpatient Plan of Care Goal: Plan of Care Review Outcome: Ongoing, Progressing Flowsheets (Taken 01/29/2023 0530) Plan of Care Reviewed With: patient Note: Shift summary: Patient alert and oriented x4. Patient complained of pain and prn Ronald given x1. Patient is being educated to use call green for assistance as needed. Bed in low, locked position,and call green is in reach. Patient is receiving education about proper methods to keep from developing skin breakdown, including decreasing pressure, cleansing and lubricating skin, and hydration and nutrition. Patient was rounded on hourly throughout this shift; odd by nurse and even by care aid. Problem: Adult Inpatient Plan of Care Goal: Patient-Specific Goal (Individualized) Outcome: Ongoing, Progressing Note: Patient slept well, and vitals charted. Fingerstick blood sugar checked and no insulin coverage needed. Patient reminded to turn and reposition every 2 hours in order to relieve pressure and prevent breakdowns. Patient verbalizes understanding. Patient is asleep and in no apparent distress. This information will be pass on to the oncoming nurse Problem: Fall Injury Risk Goal: Absence of Fall and Fall-Related Injury Outcome: Ongoing, Progressing Note: Patient remained free from falls and injuries during this shift. Falls precaution maintained by staff. * Gloria Gil RN - 01/28/2023 9:15 AM EDT Plan of Care reviewed. * Giselle Almendarez LRT/TIRE RECAPPING MACHINE OPERATOR - 01/28/2023 9:15 AM EDT LEISURE ASSESSMENT Raghu Rosenthal is 77yrs old Male admitted with Raghu Rosenthal a 77yrs old Male admitted to [facility] on 12/28/2022 for NSTEMI and valve replacement. Hospital course complicated by respiratory distress and RTA for worsening encephalopathy. Vision: wears glasses Hearing: [place] Communication: WFL Cognition: slight deficits with memory Current functional/physical status: limited and needs assistance Vocational Assessment: Current/Previous Occupation: retired Pre-hospital vocational category: retired for age Occupational status: N/A Support System Identified support system: spouse and adult children Transportation: driving Requests a handicap parking tag application: no Cultural/Spiritual Needs Type of jain/denomination: [employer] Involvement: active with own personal mike Patient interested in Biodiesel Engine Specialist services? no Patient interested in Sunday services? N/A at this time Adjustment Mood: How do you feel? I am good today Adjustment to disability/dx/hospitalization? WNL Affect: bright Do you worry? a little How did you manage your stress/worry SURVEY INSTRUMENT OPERATOR? Watch tv, work on old cars Do you currently feel stress? no Relaxation Skills: be with family Over the last 2 weeks, how often have you been bothered by any of the following problems? A. Little interest or pleasure in doing things Symptom Frequency: Never or 1 day B. Feeling down, depressed, or hopeless Symptom Frequency: Never or 1 day Leisure Interests Classic cars (has 2), being with family, traveling, using ipad, hunting (past), taking care of the yard, reading history (civil war) Social Interaction Behavior: seeks interaction, initiates conversation, and cooperative pleasant Social FIM Level: Independent with increased time Barriers to Leisure: decreased cognition, decreased endurance, decreased mobility, decreased motivation, and decreased strngth Pre-morbid Leisure Barriers: none Anticipated Barriers: same as above, but should improve with time What is your leisure goal? To get back to [place] and back to my life. I know somet hings I cannot do right away, but I will do what I can Assessment Sources: chart review, patient Leisure Assessment Summary: Raghu was able to provide his leisure history and discuss community involvement. Strengths include very close and supportive family, positive leisure interests and desire to be independent again. Limitations at this time are related to decreased endurance and strength.Some slight issues with memory also noted. He wants to return to [place] as as he is physically able. Due to strong family support and his ability to return to his lifestyle slowly with little permanent deficits, RT will not follow at this time. Giselle Almendarez LRT/TIRE RECAPPING MACHINE OPERATOR * Telly Harris, - 01/28/2023 7:11 AM EDT Images from the original note were not included. Department of Physical Medicine and Rehabilitation Rehab Physician Progress Note Raghu Rosenthal, 77yrs Male Admit Date: 01/26/2023 Today's Date: 01/28/2023 Drug Regimen Review Completed: Yes The following clinically significant medication issues were identified over the last 24 hours: See below. Subjective/Interval Events: Patient seen and examined with attending physician. No acute events overnight. Vitals are steady and stable this morning with most recent blood pressure 110/60. Patient has been unsure if he has beenhaving blood in his urine and it does not appear from nursing that he had last night. H/H stable from yesterday. UA negative for infection. Culture still pending. Patient states that his bowel movements are getting a little bit better with the increasing Colace from the other day. However he still has not had a good sized bowel movement in several days. We will increase his bowel regimen with an addition of MiraLAX and senna. Also encouraged him to continue drinking plenty of fluids to keep up with hydration. All systems above examined with findings unchanged unless otherwise noted. Objective: Vitals: Temp: 36.6 ??C (97.9 ??F) BP: 110/60 Pulse: 74 Resp: 18 SpO2: 99 % Height: 175.3 cm Weight: 105.6 kg Body mass index is 34.36 kg/m??. Physical Exam: General: Appears disheveled, no acutely ill appearing, cooperative with exam, appears stated age Eyes: Eyes anicteric, not injected., no ocular discharge Cardiovascular: Normal rate, regular rhythm, intact distal pulses. Nml s1s2 Respiratory: Effort normal. ctab bl Gastrointestinal: Abdomen soft. No tenderness. Bowel sounds normal. Genitourinary: No palpable bladder distention. Bruno present. Musculoskeletal: RUE: 5/5 LUE: 5/5 RLE: 5/5 LLE: 5/5 Neurologic Mental Status: Intact speech and language. Orientation, attention, memory, and fund of knowledge are intact as manifested by the patient's ability to furnish a complete and lucid medical history. Integumentary: Warm and dry. No erythema or rashes noted. Psychiatric: Mood and behavior normal. All systems above examined with findings unchanged unless otherwise noted Labs: Recent Labs 01/27/23 0306 01/27/23 1231 WBC 4.24* -- HGB 10.0* 10.4* HCT 32.5* 34.1* MCV 97.6 -- PLATELET 97* -- Recent Labs 01/26/23 0456 01/26/23 0745 01/27/23 0306 01/27/23 1146 01/27/23 1658 01/27/23 1950 SODIUM 133* -- 131* -- -- -- POTASSIUM 3.8 -- 3.5 -- -- -- CHLORIDE 100 -- 97* -- -- -- BICARBONATE 24 -- 24 -- -- -- GLUCOSE 88 < > 83 128* 92 99 BUN 55* -- 58* -- -- -- CREATININE 2.01* -- 1.93* -- -- -- CALCIUM 8.3* -- 7.9* -- -- -- PHOSPHORUS -- -- 2.5 -- -- -- MAGNESIUM -- -- 1.5* -- -- -- BILIRUBIN -- -- 1.1 -- -- -- PHOSPHATASE -- -- 49 -- -- -- TRANSAMINASE -- -- 41* 20 -- -- -- PROTEIN -- -- 5.0* -- -- -- ALBUMIN -- -- 2.6* -- -- -- < > = values in this interval not displayed. Recent Labs 01/27/23 1950 01/27/23 16501/27/23 1146 GLUCOSE POCT 99 92 128* 12/28/2022: Hemoglobin A1C 5.0 % 01/08/2023: Hematocrit 28.2 % (L) 01/12/2023: WBC, Urine 4 /HPF (H) 01/21/2023: Hemoglobin, Urine Negative 01/27/2023: WBC (White Blood Cell Count) 4.24 k/uL (L); Hemoglobin 10.0 g/dL (L); Neutrophils (%) 48 %; MCV (Mean Corpuscular Volume) 97.6 fL; Platelet Count 97 k/uL (L) 12/28/2022: Est Avg Glucose 97 mg/dL 01/21/2023: Glucose, Urine Negative 01/26/2023: Glucose 105 mg/dL (H) 01/27/2023: Sodium 131 mEq/L (L); Potassium 3.5 mEq/L; Chloride 97 mEq/L (L); CO2 24 mEq/L; BUN 58 mg/dL (H); Bun:Creat Ratio 30.05; Creatinine 1.93 mg/dL (H); Glucose 83 mg/dL Radiology reviewed No results found. aspirin, 81 mg, DAILY clopidogreL, 75 mg, DAILY docusate sodium, 200 mg, BID enoxaparin (LOVENOX) injection, 40 mg, DAILY AT 1600 escitalopram, 20 mg, DAILY [START ON 02/02/2023] evolocumab, 140 mg, Q2WKS gabapentin, 100 mg, QHS insulin lispro, , TID-WITH MEALS metoprolol succinate XL, 25 mg, DAILY potassium chloride, 40 mEq, DAILY senna, 1 Tablet, QPM sodium chloride, 3 mL, Q8HR sodium chloride, 3 mL, Q8HR spironolactone, 25 mg, DAILY torsemide, 60 mg, BID traZODone, 50 mg, QPM acetaminophen tablet, 650 mg, B1KG-CYU bisacodyL, 10 mg, DAILY-PRN dextrose, 15 g, PRN dextrose 50% in water, 25 mL, PRN dextrose 50% in water, 50 mL, PRN docusate sodium, 100 mg, DAILY-PRN hydrALAZINE, 25 mg, Q7CD-SLM ondansetron, 4 mg, O3YT-UQP ondansetron ODT, 4 mg, R6VB-ZIX oxyCODONE, 5 mg, J8XQ-[id number] simethicone, 80 mg, I9KL-HCC Assessment/Plan: Raghu Rosenthal a 77yrs old Male admitted to [facility] on 12/28/2022 for NSTEMI and valve replacement. Hospital course complicated by respiratory distress and RTA for worsening encephalopathy. Impaired mobility and ADLs - impaired mobility and ADLs resulting from the above and multiple comorbidities, would benefit from rehab for the following: PT: balance, functional mobility, gait training, orthotics/prosthetic training, transfer training, improving strength, improving endurance, wheelchair mobility, education on assistive devices OT: ADLs, iADLs, adaptive equipment training, transfer training 01/08/23 TransCatheter Aortic Valve Replacement ([id number], 26 Medtronic Evolut Pro, via the Left [...] lipitor will resume home crestor, ct trilipix - / per Cardiology, dressing removed from surgical site. Steri-strips intact. Acute encephalopathy- resolved Mental status changes have resolved. Per IM Dr. Head, most likely hospital delirium. 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 - nutrition/security control center operator counseling - DM diet w/o sweets or juice - consider [facility] with Dr. Nettles ASthma OLIVIER - cipap while in IPR - continue spiriva and prn albuterol Hx of TIA Cerebellar stroke SAH - therapies as above - DAPT (30 days of plavix) and statin GERD - continue PPI DVT Prophylaxis: lovenox GI Prophylaxis: PPI Diet: cardiac/renal Bowel Regimen: 01/27 increased colace to 200 mg bid, started MiraLAX and senna on 01/28 Code status was discussed with the patient and the patient is Full code Estimated date of Discharge: 7-10 Days Rehabilitation Potential: good Discharge Destination: Home with caregiver support Skin: No Pressure injury/ulcer Pressure Ulcer Risk Conditions: none Telly Harris DO Associated attestation - Aroldo Reyes DO - 01/28/2023 2:44 PM EDT I saw and evaluated the patient with Dr. Harris today and agree with the rehab assessment and plan of care. # Constipation - added miralax PO daily and senna 1 tab po daily. Additionally encouraged hydration. # hematuria - appears improved per report from patient and nurse. Continue to monitor. * Mildred Stauffer RN - 01/28/2023 5:52 AM EDT Problem: Adult Inpatient Plan of Care Goal: Plan of Care Review Outcome: Ongoing, Progressing Flowsheets (Taken 01/28/2023 0550) Plan of Care Reviewed With: patient Note: Shift summary: Patient alert and oriented x4. No complaints of pain or discomfort. Patient isbeing educated to use call green for assistance as needed. Bed in low, locked position, and call green is in reach. Patient is receiving education about proper methods to keep from developing skin breakdown, including decreasing pressure, cleansing and lubricating skin, and hydration and nutrition. Patient was rounded on hourly throughout this shift; odd by nurse and even by care aid. Problem: Adult Inpatient Plan of Care Goal: Patient-Specific Goal (Individualized) Outcome: Ongoing, Progressing Note: Patient slept well, and vitals charted. Patient reminded to turn and reposition every 2 hoursin order to relieve pressure and prevent breakdowns. Patient verbalizes understanding. Patient is asleep and in no apparent distress. This information will be pass on to the oncoming nurse Problem: Fall Injury Risk Goal: Absence of Fall and Fall-Related Injury Outcome: Ongoing, Progressing Note: Patient remained free from falls and injuries during this shift. Falls precaution maintained by staff. * Karuna De Oliveira RN - 01/27/2023 4:41 PM EDT Problem: Fall Injury Risk Goal: Absence of Fall and Fall-Related Injury Outcome: Ongoing, Progressing Note: Shift summary: Patient alert and oriented x4. Medicated for pain x 1 thus far. Patient is being educated to use call green for assistance as needed. Bed in low, locked position, and call green isin reach. Patient is being educated of the need to ask for pain medications to manage pain and prior to therapy or periods of activity so they can participate comfortably. Patient is receiving education about proper methods to keep from developing skin breakdown, including decreasing pressure, cleansing and lubricating skin, and hydration and nutrition. Patient was rounded on throughout the shiftby staff members. * Lisa Grajeda PT - 01/27/2023 4:22 PM EDT PHYSICAL THERAPY ASSESSMENT-REHAB [facility] Date of Assessment: 01/27/2023 Time In: 1030 / Time Out: 1130 Patient Name:Raghu Rosenthal Age: 77yrs : 1945 Sex: Male Rehab Admit Date: 01/26/2023 Primary Diagnosis/Reason for Admission: Raghu Rosenthal a 77yrs old Male admitted to [facility] on 12/28/2022 for NSTEMI and valve replacement. Hospital course complicated by respiratory distress and RTA for worsening encephalopathy. Patient History/Co-Morbidities: CKD, CVA, Depression, NSTEMI, and OA Precautions: Fall and Cardiac PATIENT AND/OR FAMILY INTERVIEW: Subjective: Patient's Goal: to return home to [place] Caregiver/Patient Concerns: none noted Plan for Discharge: home with Prior to Hospitalization: Transfers: Independent Transfer Devices: None Walking/Ambulation: Independent Toileting equipment used: (Higher than standard toilet) Wheelchair mobility: Not applicable Stair negotiation: Independent Bowel/Bladder Function: Bladder: Continent Bowel: Continent Sensory Hearing: Impaired (Slightly [place] P[place] (able to hear with raised voice)) Vision: Functional with lenses Cognition Cognition: Needs assist for memory Communication Communication: Normal Vocational: 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 Pt reports having BSC and shower chair from previous surgeries but has not needed lately Transportation: Drives Vehicle: Car Pre-Hospital Activity/Participation: Activity Level Prior to Admission: Independent with ADL/IADL, was driving, traveling Pertinent Cultural/Spiritual Information Are there any spiritual/cultural beliefs the patient/family wishes for staff to consider prior to initiating or during evaluation/treatment? No CURRENT FUNCTIONAL ASSESSMENT Cardiopulmonary/Endurance: Vital Signs: Symptoms exhibited: none BP = 125/65 Pain: Non-verbal indicators: grimace and flexing trunk due to cramping Mental Status/Communication/Psychosocial Behavior Level of Consciousness: Alert Method of Communication: Verbal Speech: Clear Orientation: Oriented to person, place, time, situation thought it was Ruchi but quickly corrected Memory: Unable to assess Emotional State/Behavior: Calm and Cooperative Musculoskeletal Assessment: ROM: See OT eval for UE ROM Able to perform gross functional tasks without noted limitation in lower extremity ROM. Strength: See OT eval for UE strength B LEs = 4/5 Neck/Trunk/Posture: No gross motor limtation noted in cervical/trunk mobility. Skin Assessment: Skin intact on observation. Sensation: Right LE: Light touch: Intact Left LE: Light touch: Intact Coordination: No coordination deficits that impair functional tasks were noted. Tone: Normal Upright Control/Balance: Sitting Static: Normal balance reactions, accepts all challenges to static balance Standing Static: Normal balance reactions, accepts all challenges to static balance. Standing Dynamic: Impaired. Balance strategies observed: ankle, hip, and Needs RW to maintain COG Bed Mobility/Transitions: Rolling Right: Level of assist: Independent with assistive device Assistive Device: siderail Reason for Assist: No assist required Rolling Left: Level of Assist: Independent with assistive device Assistive Device: siderail Reason for Assist: No assist required Supine to Sit: Assist Level: Contact guard Assistive Device: siderail Reason for Assistance: No assist required Sit to Supine: Assist Level: Contact guard Assistive Device: Assistive Device: siderail Reason for Assistance: Safety Sit to Stand: Performed from 22 inch high surface. Assist level: Minimal assist Assistive Devices: rolling walker Reason for Assistance: balance and safety Stand to Sit: Assist Level: Contact guard Assistive Device: rolling walker Reason for Assistance : safety Transfers: Transfer Trial 1: Type of Transfer: stand step Performed from bed to chair. Level of Assistance: Minimal assist Assistive Device: rolling walker Reason for Assistance: balance and safety Ambulation: Distance walked: 50 feet Level of Assistance: Minimal assist Assistive Device Used: rolling walker Speed was decreased Reason for Assistance: balance and safety Gait Deviations: None Wheelchair Mobility: Unable to assess due to Pt not feeling well due to crramping and lack of sleep. Stair Climbing: Unable to assess due to not feeling well and lack of sleep. Education/Equipment Provided: w/c ASSESSMENT: Raghu Rosenthal presents with deficits that warrant PT intervention. Impairments: Patient presents with impairment of the following functions: Neuromusculoskeletal and movement functions including muscle strength, balance, endurance Activity/Restrictions: Patient presents with limitations in activity/restrictions in participation in the following: Mobility including: Transfers, Walking short distances, long distances, walking without an assistive device, Moving around the home, Moving around in the community, Stair climbing Based on the Physical Therapy Evaluation, including the patient's medical and therapy history, performance deficits, and clinical decision making, the patient presents as a moderate complexity evaluation. Goals/Education See Patient Education Activity for education plan. Potential to Achieve Goals: Good Patient, Family has reviewed, understood and agrees with treatment plan: Yes PLAN: Physical Therapy Recommended Consults: None identified at this time. Physical Therapy Care Home Goals intermediate frame tender goals to be met by discharge. PT PEER COUNSELOR GOAL 1: Pt will be independent with all transfers PT PEER COUNSELOR GOAL 2: Pt will ambulate 200 feet with LRAD mod independently PT FDC GOAL 3: Pt will navigate 4 steps with one handrail mod independently Physical Therapy Short Term Goals PT SHORT TERM GOAL 1: Pt will transfer with CGA of 1 Anticipated End Date-Goal 1: 02/03/23 PT SHORT TERM GOAL 2: Pt will ambulate 100 feet with RW with SBA of 1 Anticipated End Date-Goal 2: 02/03/23 Physical Therapy Treatment Plan PT Interventions: Balance re-education, Discharge planning, Durable medical equipment assessment, Functional mobility training, Patient/Caregiver education, Gait training, Therapeutic exercise, Handling/positioning, Transfer training, Neuromuscular re-education, Wheelchair mobility training PT Intensity (Hours per Day): 1-3 hours per day PT Frequency (Days per Week): 5-6 x week Lisa Grajeda PT * Lisa Grajeda PT - 01/27/2023 4:20 PM EDT Problem: Physical Therapy Goal: PT Daily Note Note: PHYSICAL THERAPY DAILY NOTE Patient Name: Raghu Rosenthal Date of :1945 Age: 77yrs Date: 01/27/2023 Session 2: Time In 1400 Time Out 1430 Precautions: Fall and Cardiac pacemaker Physical Therapy Maintenance Foreman Goals LTG Anticipated Completion: by discharge date. PT Care Home Goals PT FDC GOAL 1: Pt will be independent with all transfers PT FDC GOAL 2: Pt will ambulate 200 feet with LRAD mod independently PT PEER COUNSELOR GOAL 3: Pt will navigate 4 steps with one handrail mod independently Current Physical Therapy Goals: PT SHORT TERM GOAL 1: Pt will transfer with CGA of 1 Anticipated End Date-Goal 1: 02/03/23 PT SHORT TERM GOAL 2: Pt will ambulate 100 feet with RW with SBA of 1 Anticipated End Date-Goal 2: 02/03/23 Subjective: Pt was up in bedside chair, feeling a little better than earlier. He notes he did not sleep well and has had diarrhea issues today. Pt is agreeable to particpate with PT. Objective/Assessment: Pt has IV in place. Pt transfers STS with UE assist and min assist of 1 and ambulates with RW with min assist of 1 x 50 feet and returns to bedside chair. Pt notes he is fatigued post walk. Pt performs sitting LE exercises: ankle pumps and LAQ x 10 reps. Pt is left up in bedside chair with LE elevated with present. Call button in reach. Plan: Continue with LE exercises and functional mobility to regain PLOF to return home to [place]. Lisa Grajeda PT * Lisa Grajeda PT - 01/27/2023 4:16 PM EDT Problem: Physical Therapy Goal: PT Treatment Plan Flowsheets (Taken 01/27/2023 1615) PT Interventions: Balance re-education Discharge planning Durable medical equipment assessment Functional mobility training Patient/Caregiver education Gait training Therapeutic exercise Handling/positioning Transfer training Neuromuscular re-education Wheelchair mobility training PT Intensity (Hours per Day): 1-3 hours per day PT Frequency (Days per Week): 5-6 x week * Lisa Grajeda PT - 01/27/2023 4:14 PM EDT Problem: Physical Therapy Goal: PT Short Term Goals Flowsheets (Taken 01/27/2023 1614) PT SHORT TERM GOAL 1: Pt will transfer with CGA of 1 Anticipated End Date-Goal 1: 02/03/23 PT SHORT TERM GOAL 2: Pt will ambulate 100 feet with RW with SBA of 1 Anticipated End Date-Goal 2: 02/03/23 * Lisa Grajeda PT - 01/27/2023 4:13 PM EDT Problem: Rehab Care Home Goals Goal: PT Care Home Goals Flowsheets (Taken 01/27/2023 1612) PT FDC GOAL 1: Pt will be independent with all transfers PT PEER COUNSELOR GOAL 2: Pt will ambulate 200 feet with LRAD mod independently PT FDC GOAL 3: Pt will navigate 4 steps with one handrail mod independently * Yany Chaney W - 01/27/2023 2:07 PM EDT [facility] Case Management Assessment Patient Name: Raghu Rosenthal : 1945 Age: 77yrs MEG: [id number] Admit Date: 01/26/2023 Room: [id number] Attending Provider: Beverly Nettles,* Primary Care Provider: Williams Yip MD Team: MADHU Last Admission: ED Chief Complaint: No chief complaint on file. Reason for Consult/Assessment: Routine Assessment There are no questions and answers to display. Principal Problem: <principal problem not specified> Advance Directives: Advance Directive/Healthcare Power of Storekeeper Helper Advance Directive/Living Will: Yes, copy requested from Pt/Family Health Care Power of Storekeeper Helper: Yes, copy requested from Pt/Family Source of Information: Chart Review This patient's decision maker is: Self Family/Support system: Living Arrangements: Spouse/significant other Support Systems: Spouse/significant other Type of Residence: Private residence Support Name: Cathy Barclay Phone Number: [phone] [employer] Is an environmental project manager needed/used?: No Need for family participation in patient care?: SURVEY INSTRUMENT OPERATOR services/supplies/DME: Established Respiratory Supplies: [employer] Machine Home Care Services: No Any history of, or current mental health diagnosis?: No Current Mental/Functional Status: . Is your home accessible given your current medical needs?: Yes One or more falls in the last year:: Yes Feels unsteady when walking:: Yes Worried about falling:: Yes Custody and guardianship issues/APS/CPS (including abuse/ neglect issues): N/A Payor source/ needs: Primary: Payor: MEDICARE / Plan: MEDICARE PART A & B / Product Type: Medicare / Secondary: [facility] Insight into what may contribute to a readmission: Treatment / Complication Anticipated Discharge Plan: Discharge Planning Method of Obtaining Prescription Medications After Discharge: Commercial Insurance Method of Obtaining Follow Up Care After Discharge: PCP Means of reaching the discharge destination:: Family/Friends Does the patient need discharge transport arranged?: No Insight into what may contribute to Readmission: Treatment / Complication How will this patient obtain prescription medications at discharge? Commercial Insurance How will this patient obtain follow up care after discharge? PCP I have discussed the discharge plan with the patient/ family, who understand and agree. Discharge Planning and Psychosocial Summary: HCPOA/Advance Directive: no, patient declined Patient and his are from [place] and has been vacationing in [place] for 3 months. The couple has 3 adult daughters, all residing in [place]. 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 SURVEY INSTRUMENT OPERATOR patient was independent of ADL's, ambulatory, driving, and denies any falls. Patient has PMH of PTSD, [facility] Per chart review patient recently admitted 12/28 and discharged to [facility] 01/19, now readmitted back 01/21 to hospital unit. This places him at high risk for readmission. DME: [employer] ([employer]) H/H: none SURVEY INSTRUMENT OPERATOR PCP: Williams Yip MD. Dr. Michael Mckenzie at the [facility] in [place], [place]; Insurance: Medicare Part A/B. Secondary Payor: [facility] Uses [facility] Prescription Drug Coverage: yes, no issues obtaining medications Family Education: TBD Emergency Contact: Cathy Rosenthal, patient's Plan to return home at D/C Patient's will provide care and transportation at D/C CORDELL White, MACHINE PROGRAMMER-A [facility] Pit Clerk [phone] After Hour Case Management (any day after 4:30pm) [phone] * Karuna De Oliveira RN - 01/27/2023 1:00 PM EDT Assumed care, agree with previous assessment. * Tara Mills OTR/Jessica - 01/27/2023 7:19 AM EDT OT ASSESSMENT--REHAB [facility] Date of Assessment: 01/27/2023 Time In: 0845 / Time Out: 1000 Patient Name:Raghu Rosenthal Age: 77yrs : 1945 Sex: Male Rehab Admit Date: 01/26/2023 Primary Diagnosis/Reason for Admission: Per Dr. Lowe H&P: HPI: Raghu Rosenthal is a 77yrs old White Male with past medical history of CAD s/p CABG x2 in [place] 10 years ago, HTN, HLD, porcine AVR who initially presented to [place] ED with complaints of SOB and midchest pressure. Patient lives in [place] with his , and is visiting [facility] for the next 3 months.He recently had a ziopatch placed by the [facility] on 12/27. Following this procedure he had worsening SOB associated with fatigue, malaise and generalized weakness. EMS was called and he was brought to [facility] ED. On arrival he was noted to be in mild respiratory distress and required bipap. WBC of 19. EKG without NUNO, troponin 1.197. CXR consistent with mild interstitial edema, and a small left pleural effusion. He was given nitro sublingual and morphine, and started on BID lovenox. He was admitted to the ICU at [facility]. He was started on empiric vanc, cefepime for possible infection. He was hypotensive requiring levophed with a differential of cardiogenic vs septic shock. He had a repeat EKG done on 12/28 with a new LBBB. His troponin trended as high as 39. Given concerns for acute coronary syndrome, he was transferred to [facility] for further management. On arrival to CICU, patient is awake and alert. He is on low dose levophed. He is warm to the touchand appears well perfused. POCUS with EF visually estimated at 45%. He underwent a R/LHC 12/28/2022 showin. Severe three-vessel disease with patent VOGT to LAD, intermediate stenosis in mid RCA, 60% distal left main stenosis. Culprit for his MD appears to be an occluded SVG to ramus graft. There is flowin the ramus with proximal 70% stenosis. 2. He is also noted to have severely degenerated bioprosthetic aortic valve, invasive gradients reviewed severely stenotic with mean gradient over 40 mmHg. 3. Decompensated heart failure with preserved cardiac output. We had discontinued his Levophed on arrival to the Documentation Specialist. LVEDP 30mmHg Patient was treated for cardiogenic [...] L nasal cannula with weaning as tolerated. Patient returned to acute on 01/21 due to worsening AMS. Patient currently complains of hard stools and difficulty with bowel movements. Otherwise he is doing well. No additional concerns. . Reports he and his are from [place]. They were down in [place] for vacation. He is anxious to get started and ready to get back to [facility]. Patient History/Co-Morbidities: Per Dr. Lowe H&P: Precautions: Fall, cardiac, (No heavy lifting (>10lbs), pushing, or pulling until insertion siteis healed for 4-6 weeks , Do not raise your arm above shoulder level or stretch for 4-6 weeks) - OK to shower but do not soak surgical site in water for 3 days. PATIENT AND/OR FAMILY INTERVIEW Subjective: Pt received sitting in recliner in room and c/o discomfort due to constipation. He denies pain otherwise and is agreeable to OT evaluation. Pt alert and oriented x4 however demonstrates decreased memory/flow of ideas/attention during session. Patient stated goal: Get myself back so I can do some things Caregiver/Patient Concerns: None stated at time of evaluation Plan for Discharge: Home with spouse Prior to Hospitalization: . Eating: Independent Dressing: Independent Bathing: Independent Bathing equipment used: Grab bars Toileting: Independent Toileting equipment used: (Higher than standard toilet) Domestic Chores: Independent (Per pt report, assisted with chores inside the home) Patient was responsible for following IADL's: Per patient, shared responsiblities with Bowel/Bladder Function: Bladder: Continent Bowel: Continent Sensory Hearing: Impaired (Slightly [place] (able to hear with raised voice)) Vision: Functional with lenses Cognition Cognition: Needs assist for memory Communication Communication: Normal Vocational: 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 Pt reports having BSC and shower chair from previous surgeries but has not needed lately Transportation: Drives Vehicle: Car and Truck Pre-Hospital Activity/Participation: Activity Level Prior to Admission: Independent with ADL/IADL, was driving, traveling Roles: Pipe Liner to self, , father to adult children, grandfather Patient has the following hobbies/interests: Being with family, has 2 hobby cars Functional Communication: Verbal Pertinent Cultural/Spiritual Information Are there any spiritual/cultural beliefs the patient/family wishes for staff to consider prior to initiating or during evaluation/treatment? No Do you have questions related to sexuality or intimacy? Sexuality/Intimacy: No, not at this time CURRENT FUNCTIONAL ASSESSMENT Cardiopulmonary/Endurance: Vital Signs: Vital Signs: Sitting: Heart rate: 60, Blood pressure: 126/73, O2 saturation: 100% Pain: Intensity (Adult): 0 (patient denies pain) Musculoskeletal Assessment: Upper Extremity Range of Motion: Able to perform gross functional tasks without noted limitation in ROM. UB strength grossly 4+/5 Upper Extremity Strength: Upper extremity strength within functional limits for the following tasks: ADLs Upper Extremity Sensation: Right UE: Light touch: Intact Left UE: Light touch: Intact Muscle Tone: WNL in upper extremities Upper Extremity Impairments: WFL Fine Motor Skills/Coordination: WFL based on clinical observation Motor Planning Observations: Within functional limits Skin Issues Noted: Yes Surgical incision at chest covered by steri strips Posture/Alignment: Sitting: Equal on both sides Balance: Sitting: WFL based on clinical observation Standing: Dynamic standing level of assist: Contact guard Mental Status/Communication/Psychosocial Behavior Method of Communication: Verbal Speech: Clear Orientation: Oriented to person, place, time, situation Social Behavior Observations: During evaluation, patient exhibited the following characteristics: pleasant/cooperative Cognition: Brief Interview of Mental Status (BIMS) The BIMS is a structured cognitive interview. This assessment consist of three parts. BIMS helps decrease the chance of incorrect labeling of cognitive ability and improves detection of delirium. It provides a direct understanding of patient function that may enhance future communication and assistance and help direct interventions to facilitate greater independence. If the response to a questionis nonsensical, the score would be ???-???, where as an incorrect response but id related to the topic would be ???0?? . Repetition of three words: 3/3 Then repeat the 3 words with a cue: something you wear, a color and a piece of furniture. Temporal Orientation Year: 11/24 Correct: 3 Missed by 1 year: 2 Missed by 2 to 5 years: 1 Missed by more than 5 years or no answer: 0 Temporal Orientation Month: 2/2 Accurate within 5 days: 2 Missed by 6 days to 1 month: 1 Missed by more than 1 month or no answer: 0 Temporal orientation Day: 0/1 Stop the interview here if all the responses have been nonsensical or no verbal or written responseto any of the questions up unto this point. Recall Sock: 2/2 Yes, no cue required: 2 Yes, after cueing (something you wear): 1 No, could not recall: 0 Recall Blue: 2/2 Yes, no cue required: 2 Yes, after cueing (a color): 1 No, could not recall: 0 Recall Bed: 2/2 Yes, no cue required: 2 Yes, after cueing (a piece of furniture): 1 No, could not recall: 0 BIMS Total: 14/15 13-15: Cognitively intact 8-12: Moderate Impairment 0-7: Severe Impairment The patient achieved a score of 14/15 on the Brief Interview of mental status (BIMS) indicating patient Cognitively Intact Vision/Perception: WFL Reading: WFL Writing: Hand used: right Self-Care Assessment: Feeding: Level of Assist: Independent Reason for Assist: No assist required. Adaptive Equipment/Alternative Methods Used: None Position: chair Diet: Diet Orders (From admission, onward) Ordered Room Service Assistance Needed CONTINUOUS Question: Patient physically capable of ordering room service? Answer: Yes with Dietary Assistance 01/26/23 946 Nutrition Therapy Diet Effective Now Question Answer Comment Nutrition Therapy: Regular/House Fluid Consistency: All Level Liquids (Thin Liquids) - Level 0 01/26/23 4045 Grooming: Level of Assist: Set up (supervision for standing only) Reason for Assist: Retrieval of materials Adaptive Equipment/Alternative Method Used: no assistive device Position: standing at sink to brush teeth Additional Details: Not applicable. Dressing Upper Body: Level of Assist: Minimal assist Reason for Assist: Assist to pull shirt over head Adaptive Equipment/Alternative Method Used: no assistive device Position: sitting in chair Clothing Items Donned/Doffed: Pullover shirt Additional Details: Not applicable. Dressing Lower Body: Level of Assist: Minimal assist Reason for Assist: Assist to thread pullup brief (had put one side on upside down) . Dons socks with setup Adaptive Equipment/Alternative Methods Used: no assistive device Position: sitting in chair Clothing Items Donned/Doffed: Underwear, Pants/skirt, Socks, and Shoes Additional Details: Not applicable. Bathing: Upper Body Bathing Level of Assist: Set up Lower Body Bathing Level of Assist: Contact guard Reason for Assist: Safety/balance in standing Adaptive Equipment/Alternative Methods Used: no assistive device Position: in chair at sink Toileting: Level of Assist: Contact guard Reason for Assist: Balance/safety in standing Assistive Device: no assistive device Position: sitting and standing Toilet Transfer: Level of Assist: Minimal assist Reason for Assist: Lift assist to stand due to precautions Adaptive Equipment/Alternative Method Used:Not applicable Type of Transfer: stand turn Shower/Tub Transfer: Level of Assist: Contact guard Reason for Assist: Balance/safety in standing Type: walk-in shower without ledge Adaptive Equipment/Alternative Method Used: None Type of Transfer: stand step Mobility Assessment: Bed/chair transfers: Contact guard, Minimal assist Functional Movement Observations: Unsteady gait Splinting/Positioning Needs: No splinting/positioning needs identified Education/Equipment Provided: Patient educated on OT POC with pt verbalizing understanding. See Patient Education Activity for education plan. ASSESSMENT: OT services are indicated. Impairments: Patient presents with impairment of the following functions: Mental functions including attention, memory, judgement, problem solving Neuromusculoskeletal and movement functions including muscle strength, endurance, motor control Activity/Restrictions: Patient presents with limitations in activity/restrictions in participation in the following: Domestic life (meal preparation, housework, caring for others) Based on the Occupational Therapy Evaluation, including the patient's occupational profile,medical and therapy history, performance deficits, and clinical decision making, the patient presents as a moderate complexity evaluation. Goals/Education See Patient Education Activity for education plan. Potential to Achieve Goals: Good Patient has reviewed, understood and agrees with treatment plan: Yes PLAN Occupational Therapy Recommended Consults: None identified at this time. Occupational Therapy Care Home Goals intermediate frame tender goals to be met by discharge. OT Care Home Goals OT FDC GOAL 1: Mr. Rosenthal will get ready for the day (bathing, dressing, grooming, toileting) with supervision and AE/DME as needed while adhering to precautions. OT FDC GOAL 2: Mr. Rosenthal will complete bathroom transfers as in home setup (toilet, tub/shower) with supervision and LRAD while adhering to precautions OT PEER COUNSELOR GOAL 3: Mr. Rosenthal will complete a simple IADL task with supervision while adhering to precautions Occupational Therapy Short Term Goals OT Short Term Goals OT SHORT TERM GOAL 1: Mr. Rosenthal will complete standing trials of at least 5 minutes for increased independence with self care tasks. Anticipated End Date-Goal 1: 02/02/23 OT SHORT TERM GOAL 2: Mr. Rosenthal will complete LB dressing with CGA for increased independence with self care tasks Anticipated End Date-Goal 2: 02/02/23 OT SHORT TERM GOAL 3: Mr. Rosenthal will complete foot wear with no more than supervision for increasedindependence with self care tasks. Anticipated End Date-Goal 3: 02/02/23 OT SHORT TERM GOAL 4: Mr. Rosenthal will complete a toilet transfer with no more than CGA while adhering to precautions for increased independence with functional mobility Anticipated End Date-Goal 4: 02/02/23 OT SHORT TERM GOAL 5: Mr. Rosenthal will complete a simple IADL task with no more than minimal verbal cues for adhering to task and problem solving. Anticipated End Date-Goal 5: 02/02/23 OT SHORT TERM GOAL 6: Mr. Rosenthal will participate in therapeutic procedures/activities at least 15 min/day and 3 days/week for increased strength and endurance for ADL, IADL, and functional mobility. Anticipated End Date-Goal 6: 02/02/23 OT SHORT TERM GOAL 7: Mr. Rosenthal will verbalize pacemaker precautions with no more than minimal verbal cues. Anticipated End Date-Goal 7: 02/02/23 Occupational Therapy Treatment Plan OT Treatment Plan OT Interventions: Activities of daily living, Instrumental activities of daily living, Adaptive equipment/DME recommendations, Transfer training, Therapeutic activities, Therapeutic procedures, Neuromuscular reeducation, Cognitive retraining, Patient/Caregiver education, Visual-perceptual retraining OT Intensity (Hours per Day): 1-2 OT Frequency (Days per Week): 5-6 OT Duration: 7-10 days Potential to Achieve OT Goals: Good Patient: has reviewed OT treatment plan., understands OT treatment plan., agrees with OT treatment plan. Family/Caregiver : Family/Caregiver unavailable. JACK Garcia/L * Telly Harris, DO - 01/27/2023 7:07 AM EDT Images from the original note were not included. Department of Physical Medicine and Rehabilitation Rehab Physician Progress Note Raghu Rosenthal, 77yrs Male Admit Date: 01/26/2023 Today's Date: 01/27/2023 Drug Regimen Review Completed: Yes The following clinically significant medication issues were identified over the last 24 hours: See below. Subjective/Interval Events: Patient seen and examined with attending physician. No acute events overnight. Vitals are steady and stable this morning. Patient does not endorse new issues with bladder, bowel, or sleep. Patient came down from [facility] yesterday. Urine appears to have clots per nursing, so UA and culture have been ordered by nighttime physician. Results currently pending. Per nursing, the clots were happening on nurses/shift. They state that the clots were minimal low. Patient was unaware that he was even having bloody clots in his urine. He does endorse some pain with urination though. Also at the same time states that when he tries to have a bowel movement, it is hard for him. We will increase theColace at this time as well. Also I will replete magnesium with 4 g intravenous magnesium. Magnesium level this morning was 1.5. Given patient's cardiac history, would like to keep magnesium closer to 2. ROS negative for chest pain or shortness of breath. Objective: Vitals: Temp: 36.4 ??C (97.6 ??F) BP: 135/76 Pulse: 74 Resp: 18 SpO2: 95 % Height: 175.3 cm Weight: 105.6 kg Body mass index is 34.36 kg/m??. Physical Exam: General: Appears disheveled, no acutely ill appearing, cooperative with exam Eyes: Eyes anicteric, not injected. Cardiovascular: Normal rate, regular rhythm, intact distal pulses. Nml s1s2 Respiratory: Effort normal. ctab bl Gastrointestinal: Abdomen soft. No tenderness. Bowel sounds normal. Genitourinary: No palpable bladder distention. Bruno present. Musculoskeletal: RUE: 5/5 LUE: 55 RLE: 55 LLE: 5/5 Neurologic Mental Status: Intact speech and language. Orientation, attention, memory, and fund of knowledge are intact as manifested by the patient's ability to furnish a complete and lucid medical history. Integumentary: Warm and dry. No erythema or rashes noted. Psychiatric: Mood and behavior normal. Labs: Recent Labs 01/27/23 0306 WBC 4.24* HGB 10.0* HCT 32.5* MCV 97.6 PLATELET 97* Recent Labs 01/26/23 0456 01/26/23 0745 01/26/23 1142 01/26/23 1643 01/27/23 0306 SODIUM 133* -- -- -- 131* POTASSIUM 3.8 -- -- -- 3.5 CHLORIDE 100 -- -- -- 97* BICARBONATE 24 -- -- -- 24 GLUCOSE 88 < > 125* 105* 83 BUN 55* -- -- -- 58* CREATININE 2.01* -- -- -- 1.93* CALCIUM 8.3* -- -- -- 7.9* PHOSPHORUS -- -- -- -- 2.5 MAGNESIUM -- -- -- -- 1.5* BILIRUBIN -- -- -- -- 1.1 PHOSPHATASE -- -- -- -- 49 TRANSAMINASE -- -- -- -- 41* 20 PROTEIN -- -- -- -- 5.0* ALBUMIN -- -- -- -- 2.6* < > = values in this interval not displayed. Recent Labs 01/26/23 1643 01/26/23 1142 01/26/23 0745 GLUCOSE POCT 105* 125* 97 12/28/2022: Hemoglobin A1C 5.0 % 01/08/2023: Hematocrit 28.2 % (L) 01/12/2023: WBC, Urine 4 /HPF (H) 01/21/2023: Hemoglobin, Urine Negative 01/27/2023: WBC (White Blood Cell Count) 4.24 k/uL (L); Hemoglobin 10.0 g/dL (L); Neutrophils (%) 48 %; MCV (Mean Corpuscular Volume) 97.6 fL; Platelet Count 97 k/uL (L) 12/28/2022: Est Avg Glucose 97 mg/dL 01/21/2023: Glucose, Urine Negative 01/26/2023: Glucose 105 mg/dL (H) 01/27/2023: Sodium 131 mEq/L (L); Potassium 3.5 mEq/L; Chloride 97 mEq/L (L); CO2 24 mEq/L; BUN 58 mg/dL (H); Bun:Creat Ratio 30.05; Creatinine 1.93 mg/dL (H); Glucose 83 mg/dL Radiology reviewed No results found. aspirin, 81 mg, DAILY clopidogreL, 75 mg, DAILY docusate sodium, 100 mg, BID enoxaparin (LOVENOX) injection, 40 mg, DAILY AT 1600 escitalopram, 20 mg, DAILY [START ON 02/02/2023] evolocumab, 140 mg, Q2WKS gabapentin, 100 mg, QHS insulin lispro, , TID-WITH MEALS metoprolol succinate XL, 25 mg, DAILY potassium chloride, 40 mEq, DAILY senna, 1 Tablet, QPM sodium chloride, 3 mL, Q8HR sodium chloride, 3 mL, Q8HR spironolactone, 25 mg, DAILY torsemide, 60 mg, BID traZODone, 50 mg, QPM acetaminophen tablet, 650 mg, [id number] bisacodyL, 10 mg, DAILY-PRN dextrose, 15 g, PRN dextrose 50% in water, 25 mL, PRN dextrose 50% in water, 50 mL, PRN docusate sodium, 100 mg, DAILY-PRN hydrALAZINE, 25 mg, [id number] ondansetron, 4 mg, [id number]-CBS ondansetron ODT, 4 mg, [id number] oxyCODONE, 5 mg, [id number]-[id number] simethicone, 80 mg, [id number] Assessment/Plan: Raghu Rosenthal a 77yrs old Male admitted to [facility] on 12/28/2022 for NSTEMI and valve replacement. Hospital course complicated by respiratory distress and RTA for worsening encephalopathy. Impaired mobility and ADLs - impaired mobility and ADLs resulting from the above and multiple comorbidities, would benefit from rehab for the following: PT: balance, functional mobility, gait training, orthotics/prosthetic training, transfer training, improving strength, improving endurance, wheelchair mobility, education on assistive devices OT: ADLs, iADLs, adaptive equipment training, transfer training 01/08/23 TransCatheter Aortic Valve Replacement ([id number], 26 Medtronic Evolut Pro, via the Left [...] lipitor will resume home crestor, ct trilipix - / per Cardiology, dressing removed from surgical site. Steri-strips intact. Acute encephalopathy- resolved Mental status changes have resolved. Per IM Dr. Head, most likely hospital delirium. 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 - nutrition/security control center operator counseling - DM diet w/o sweets or [...] Pressure injury/ulcer Pressure Ulcer Risk Conditions: none Telly Harris DO Associated attestation - Aroldo Reyes DO - 01/27/2023 3:25 PM EDT I saw and evaluated the patient with Dr. Harris today and agree with the rehab assessment and plan of care. * Mildred Stauffer RN - 01/27/2023 6:26 AM EDT Problem: Adult Inpatient Plan of Care Goal: Plan of Care Review Outcome: Ongoing, Progressing Flowsheets (Taken 01/27/2023 0618) Plan of Care Reviewed With: patient Note: Shift summary: Patient alert and oriented x4. Patient complained of pain and prn Ronald given x2. Patient is being educated to use call green for assistance as needed. Bed in low, locked position,and call green is in reach. Patient is receiving education about proper methods to keep from developing skin breakdown, including decreasing pressure, cleansing and lubricating skin, and hydration and nutrition. Patient was rounded on hourly throughout this shift; odd by nurse and even by care aid. Problem: Adult Inpatient Plan of Care Goal: Patient-Specific Goal (Individualized) Outcome: Ongoing, Progressing Note: Patient did not sleep at all due to pain, and medicine given. Dark red clots seen floating around in urine and on-call MD will be made aware. Patient complained of being constipated and Doculaxsuppository administered. Patient reminded to turn and reposition every 2 hours in order to relievepressure and prevent breakdowns. Patient verbalizes understanding. Patient is asleep and in no apparent distress. This information will be pass on to the oncoming nurse. Problem: Fall Injury Risk Goal: Absence of Fall and Fall-Related Injury Outcome: Ongoing, Progressing Note: Patient remained free from falls and injuries during this shift. Falls precaution maintained by staff. * Aroldo Reyes DO - 01/26/2023 3:37 PM EDT REPLACED BY [facility] Department of Physical Medicine and Rehabilitation Rehab MD Plan of Care Note INDIVIDUALIZED REHABILITATION OVERALL PLAN OF CARE/PROGRESS NOTE Date: 01/26/2023 PATIENT: Raghu Rosenthal : 1945 AGE: 77yrs Individual Assessment and Plan: Raghu Rosenthal a 77yrs old Male admitted to [facility] on 12/28/2022 for NSTEMI and valve replacement. Hospital course complicated by respiratory distress and RTA for worsening encephalopathy. Impaired mobility and ADLs - impaired mobility and ADLs resulting from the above and multiple comorbidities, would benefit from rehab for the following: PT: balance, functional mobility, gait training, orthotics/prosthetic training, transfer training, improving strength, improving endurance, wheelchair mobility, education on assistive devices OT: ADLs, iADLs, adaptive equipment training, transfer training 01/08/23 TransCatheter Aortic Valve Replacement ([id number], 26 Medtronic Evolut Pro, via the Left [...] lipitor will resume home crestor, ct trilipix - 5/ per Cardiology, dressing removed from surgical site. Steri-strips intact. Acute encephalopathy- resolved Mental status changes have resolved. Per IM Dr. Head, most likely hospital delirium. 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 - nutrition/security control center operator counseling - DM diet w/o sweets or [...] disease processes and impairments related to current Cardiac Valve replacement and Pacemaker . Safe to discharge to the community with [...] Home with family and community support services Aroldo Reyes DO * Olga Mejía RN - 01/25/2023 11:21 AM EDT INPATIENT REHABILITATION PRE-ADMISSION SCREEN Home [address]: [address] [place] [id number] Sex: Male : 1945 Age: 77yrs Phone #: [phone] (home) SS#: [id number] County: [place] MR#: [id number] History of Present Illness: Raghu Rosenthal is a 77yrs old White Male with past medical history of CAD s/p CABG x2 in [place] 10 years ago, HTN, HLD, porcine AVR who initially presented to [facility] ED with complaints of SOB and midchest pressure. Patient lives in [place] with his , and is visiting [facility] for the next 3 months. He recently had a ziopatch placed by the [facility] on 12/27. Following this procedure he had worsening SOB associated with fatigue, malaise and generalized weakness. EMSwas called and he was brought to [facility] ED. On arrival he was noted to be in mild respiratory distress and required bipap. WBC of 19. EKG without NUNO, troponin 1.197. CXR consistent with mild interstitial edema, and a small left pleural effusion. He was given nitro sublingual and morphine, and started on BID lovenox. He was admitted to the ICU at [facility]. He was started on empiric vanc, cefepime for possible infection. He was hypotensive requiring levophed with a differential of cardiogenic vs septic shock. He had a repeat EKG done on 12/28 with a new LBBB. His troponin trended as high as 39. Given concerns for acute coronary syndrome, he was transferred to [facility] for further management. On arrival to CICU, patient is awake and alert. He is on low dose levophed. He was warm to the touch and appeared well perfused. POCUS with EF visually estimated at 45%. He underwent a R/LHC 12/28/2022 showin. Severe three-vessel disease with patent VOGT to LAD, intermediate stenosis in mid RCA, 60% distal left main stenosis. Culprit for his MD appears to be an occluded SVG to ramus graft. There is flowin the ramus with proximal 70% stenosis. 2. He was also noted to have severely degenerated bioprosthetic aortic valve, invasive gradients reviewed severely stenotic with mean gradient over 40 mmHg. 3. Decompensated heart failure with preserved cardiac output. We had discontinued his Levophed on arrival to the Documentation Specialist. LVEDP 30mmHg Patient was treated for cardiogenic [...] was able to be extubated on 01/08/23. He was admitted to Rehab but then returned to acute setting for acute encephalopathy and rule out of stroke. Ultimately attributed to acute delirium. Mr. Rosenthal is now alert, oriented, on room air, taking a regular cardiac diet, and communicating well verbally. He has been progressing well and participating in therapies. However, he continues to require assistance with ambulation, transfers, standing, dressing, incision care, and ADLs. Reason for Admission to Inpatient Rehabilitation Physical Medicine and Rehabilitation was consulted originally on 01/09/23, then again on 01/23/23 for potential admisson to inpatient rehabilitation. Rehab Impairment Code: Adult Impairment Code: 09 - Cardiac Date of Onset: 12/28/22 The patient exhibits medical conditions and functional impairments that make inpatient rehabilitation prudent for the patient's post-acute care. In addition to his pre-existing chronic CAD s/p CABG x2 in [place] 10 years ago, HTN, HLD, porcine AVR, [...] of Function Height/Weight Height: 175.3 cm Weight: 121.8 kg BMI: 39.635 Infection: None LABS: Lab Results Component Value Date/Time SODIUM 134 (L) 01/24/2023 03:36 AM POTASSIUM 3.9 01/24/2023 03:36 AM BUN 53 (H) 01/24/2023 03:36 AM CREATININE 2.14 (H) 01/24/2023 03:36 AM WBC 5.77 01/24/2023 03:36 AM HGB 10.4 (L) 01/24/2023 03:36 AM HCT 35.0 (L) 01/24/2023 03:36 AM PLATELET 87 (L) 01/24/2023 03:36 AM PT 19.2 (H) 01/08/2023 04:39 AM INR 1.6 01/08/2023 04:39 AM Level of Functioning: Bed mobility: Supervision, Sit to Stand: Contact Guard Assistance, Stand to Sit: Contact Guard Assistance, Transfers: Contact Guard Assistance, Transfer Devices: Rolling Walker and Gait Belt, Ambulation: Requires: Contact guard assistance and Assistive Device: Rolling Walker and Gait Belt, Grooming/Hygiene: Minimal Assist, UE Dressing: Minimal Assist, LE Dressing: Supervision, Vision: Functional with Lenses, Bladder: Urinary Retention [...] adaptation to impairments. Services required include: Medical: [id number] a minimum of 3 times a week [...] descend steps with rail: Supervision, Continent of bowel, Decreased frequency of bowel incontinence, Continent of bladder, Decreased frequency of bladder [...] with an estimated length of stay of 5-7 days. Anticipated Discharge Plans Discharge Destination: Home with friend/significant other Caregiver Name(s): Cathy Rosenthal Relationship: Spouse Contact Number(s): [phone] Emergency Contact: Lesvia Rosenthal? (Daughter) Contact Number: [phone] Anticipated post-discharge services: DME, PT, OT, Nursing, Home Health, and Outpatient clinic The Preadmission Assessment was discussed with patient and spouse by Olga Mejía RN on 01/18/2023. Inpatient rehabilitation was discussed with the patient, family, caregiver, and significant other and patient, family, caregiver, and significant other has indicated a willingness to participate in the rehabilitation program. Patient/Family stated goal: go home, be with my family, and get around The patient and/or family have been informed [...] an appropriate admission for inpatient rehabilitation by: Mehdi Bowman Md. Associated attestation - Mehdi Bowman MD - 01/25/2023 5:16 PM EDT I have reviewed the Rehabilitation Preadmission Assessment and consulted with the Preadmission team. The patient meets the rehabilitative and medical criteria for admission to Inpatient Rehabiliation. I agree with the currently proposed Plan of Treatment. Mehdi Bowman MD documented in this encounter H&P Notes * Louis Lowe MD - 01/26/2023 11:39 AM EDT Images from the original note were not included. REPLACED BY [facility] Physicians Department of Physical Medicine and Rehabilitation Rehab Physician H&P Patient Name: Raghu Rosenthal Date of Rehab Admit: 01/26/23 : 1945 Attending Provider: Admitting MD: Yoon Impairment Group Code: Adult Impairment Code: 09 - Cardiac Etiology: TAVR 01/08/23 Assessment/Plan: Raghu Rosenthal a 77yrs old Male admitted to [facility] on 12/28/2022 for NSTEMI and valve replacement. Hospital course complicated by respiratory distress and RTA for worsening encephalopathy. Impaired mobility and ADLs - impaired mobility and ADLs resulting from the above and multiple comorbidities, would benefit from rehab for the following: PT: balance, functional mobility, gait training, orthotics/prosthetic training, transfer training, improving strength, improving endurance, wheelchair mobility, education on assistive devices OT: ADLs, iADLs, adaptive equipment training, transfer training 01/08/23 TransCatheter Aortic Valve Replacement ([id number], 26 Medtronic Evolut Pro, via the Left [...] lipitor will resume home crestor, ct trilipix - 5/4 per Cardiology, dressing removed from surgical site. Steri-strips intact. Acute encephalopathy- resolved Mental status changes have resolved. Per IM Dr. Head, most likely hospital delirium. 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 - nutrition/security control center operator counseling - DM diet w/o sweets or [...] history of CAD s/p CABG x2 in [place] 10 years ago, HTN, HLD, porcine AVR who initially presented to [facility] ED with complaints of SOB and midchest pressure. Patient lives in [place] with his , and is visiting [facility] for the next 3 months.He recently had a ziopatch placed by the [facility] on 12/27. Following this procedure he had worsening SOB associated with fatigue, malaise and generalized weakness. EMS was called and he was brought to [facility] ED. On arrival he was noted to be in mild respiratory distress and required bipap. WBC of 19. EKG without NUNO, troponin 1.197. CXR consistent with mild interstitial edema, and a small left pleural effusion. He was given nitro sublingual and morphine, and started on BID lovenox. He was admitted to the ICU at [facility]. He was started on empiric vanc, cefepime for possible infection. He was hypotensive requiring levophed with a differential of cardiogenic vs septic shock. He had a repeat EKG done on 12/28 with a new LBBB. His troponin trended as high as 39. Given concerns for acute coronary syndrome, he was transferred to [facility] for further management. On arrival to CICU, patient is awake and alert. He is on low dose levophed. He is warm to the touchand appears well perfused. POCUS with EF visually estimated at 45%. He underwent a R/LHC 12/28/2022 showin. Severe three-vessel disease with patent VOGT to LAD, intermediate stenosis in mid RCA, 60% distal left main stenosis. Culprit for his MD appears to be an occluded SVG to ramus graft. There is flowin the ramus with proximal 70% stenosis. 2. He is also noted to have severely degenerated bioprosthetic aortic valve, invasive gradients reviewed severely stenotic with mean gradient over 40 mmHg. 3. Decompensated heart failure with preserved cardiac output. We had discontinued his Levophed on arrival to the Documentation Specialist. LVEDP 30mmHg Patient was treated for cardiogenic [...] L nasal cannula with weaning as tolerated. Patient returned to acute on 01/21 due to worsening AMS. Patient currently complains of hard stools and difficulty with bowel movements. Otherwise he is doing well. No additional concerns. . Reports he and his are from [place]. They were down in [place] for vacation. He is anxious to get started and ready to get back to [facility]. Patient lives with spouse in a 1 [...] RW. 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 Psoriasis Stroke ([facility]) Left cerebellar Subarachnoid hemorrhage ([facility]) Subdural hematoma ([facility]) PSH: Past Surgical History: Procedure Laterality Date Left Main Stent Placement Left 01/08/2023 Performed by Tania Hartley MD at [facility] OR NYA REPLACEMENT, AORTIC VALVE, TRANSCATHETER, FEMORAL APPROACH (MEDTRONIC 26 ELSA); Intraoperative Echocardiogram Left 01/08/2023 Performed by Tania Hartley MD at [facility] OR NYA [place] - COLOSTOMY Then had reverse colostomy [place] - CORONARY ARTERY BYPASS GRAFT [place] - HIP REPLACEMENT Left Total [place] - PACEMAKER [place] - REPLACEMENT OF AORTIC VALVE porcine [...] Food Insecurity: Not on file Transportation Needs: No Transportation Needs Lack of Transportation (Medical): No Lack of Transportation (Non-Medical): No Physical Activity: Not on file Stress: Not [...] rashes Objective: Vitals: Ht 1.753 m Wt 121.8 kg BMI 39.64 kg/m?? Physical Exam: General: Appears disheveled, no acutely ill appearing, cooperative with exam Eyes: Eyes anicteric, not injected. Cardiovascular: Normal rate, regular rhythm, intact distal pulses. Respiratory: Effort normal. Normal breath sounds. Gastrointestinal: Abdomen soft. No tenderness. Bowel sounds normal. Genitourinary: No palpable bladder distention. Bruno present. Musculoskeletal: RUE: Strength: 5/5 shoulder flexion, 5/5 elbow extension, 5/5 elbow flexion, 5/5 bank accountant strength. LUE: Strength: 5/5 shoulder flexion, 5/5 elbow extension, 5/5 elbow flexion, 5/5 bank accountant strength. RLE: Strength: 4/5 hip flexion, 5/5 [...] Psychiatric: Mood and behavior normal. Recent Labs 01/26/23 0745 01/25/23 2100 01/25/23 1708 01/25/23 1215 GLUCOSE POCT 97 94 110* 129* Follow up appointments: Williams Yip MD 1-2 weeks after discharge. Lauren Mcghee MD 1-2 weeks after discharge. cc: Attending Provider: Admitting MD: Yoon Referring Physician: Lauren Mcghee MD Primary Care Physician: Williams Yip MD Provider Electronic Signature: Louis Lowe MD/WILL REPLACED BY [facility] Department of Physical Medicine & Rehab, PGY-2 [facility] 01/26/2023 Associated attestation - Beverly Nettles MD - 01/28/2023 11:20 AM EDT ATTENDING PRECEPTOR NOTE The chart was reviewed and the patient was interviewed and examined with the resident Dr. Lowe on 01/26/2023. I performed the critical/velasco portions of the service and agree with the rehab assessment and plan of care that we discussed as documented. Provider electronic signature: Beverly Nettles MD Clinical Mule Operator [facility] [place] Board of Physical Medicine and Rehabilitation [place] [employer] documented in this encounter Consult Notes * May Guzmán 02/06/2023 4:55 PM EDTAssociated Order(s): DURABLE MEDICAL EQUIPMENT - WALKER (ROLLING); DURABLE MEDICAL EQUIPMENT - WHEELCHAIR (MANUAL) Case Management/Social Work/DC Planning consult acknowledged and appreciated. Per Case Management policy, the Case Management Assessment is located under the initial assessment tab. Please refer to the Initial CM assessment and/or CM entry under Plan of Care tab for anticipated discharge plan of care. Please contact the unit Volunteer Services Supervisor for questions or concerns related to patient's discharge plan. May Guzmán, SHEARING MACHINE FEEDER, MACHINE PROGRAMMER-A Inpatient Rehab Volunteer Services Supervisor [address] [phone] E-mail: [email or web address] For Case Management assistance (if unable to reach the primary CM) Sunday through Sunday, Weekends or Holidays 8:30 am-5:00 pm, please page [phone] pager [phone]. For Case Management assistance after 5:00 pm, please call [phone]. documented in this encounter Miscellaneous Notes * Jimmy Bolden - Karuna De Oliveira RN - 02/07/2023 11:40 AM EDT Images from the original note were not included. [id number] Understanding Bradycardia Your heart has an electrical system that sends signals to control the heartbeat. Any abnormal change in the speed or pattern of the heartbeat is called an arrhythmia. An arrhythmia that causes the heart to beat slower than normal is called bradycardia. There are many types of bradycardia. In healthy children and adults, bradycardia is often normal, particularly during sleep. Sometimes bradycardiais caused by failure of the heart?s natural timer or failure of the electrical pathways within the heart. Depending on the type you have and how severe it is, you may need treatment. What causes bradycardia? Many things can cause bradycardia, including: ?? The natural aging process ?? Coronary artery disease ?? Heart attacks ?? Heart muscle disease ?? Problems with the SA (sinoatrial) node. This is the heart?s natural pacemaker that starts each heartbeat. ?? Problems with the electrical pathways in the heart ?? Problems with the structure of the heart that you are born with ?? Infection ?? Use of certain medicines ?? Electrolyte imbalances ?? Underactive thyroid ?? Sleep apnea ?? Increased pressure in the brain or stroke Well-conditioned athletes often have a naturally slow heart rate. What are the symptoms of bradycardia? Bradycardia can cause an irregular heartbeat. It can also make it harder for the heart to pump blood to the body. This may cause symptoms such as: ?? Tiredness (fatigue) ?? Weakness ?? Loss of ability to exercise ?? Shortness of breath ?? Dizziness or fainting ?? Chest pain ?? Swelling in your legs and feet Some people with bradycardia have no symptoms at all. How is bradycardia treated? Treatment for bradycardia depends on the cause. It also depends on the type you have and how severeyour symptoms are. If you need treatment, your options may include: ?? Treatment of the underlying cause, if the cause can be fixed. For instance, if a medicine is causing bradycardia, stopping the medicine, under your healthcare provider?s guidance, may correct the problem. Or if a condition such as an underactive thyroid is the cause, treating the thyroid may keep bradycardia from coming back. ?? Medicines. Medicines may be used to treat conditions that cause bradycardia. Some medicines can also be used in the short-term to increase the heart rate. These are generally given through an IV (intravenous) line and therefore are not long-term solutions. ?? Pacemaker. This is a device that is placed permanently under the skin (usually in your chest) and connected to your heart. The device monitors your heart, and when the heart beats too slowly, the device sends electrical impulses to keep the heart beating at the right pace. ?? Temporary pacemaker. A temporary pacemaker may be connected to the heart using wires guided through a blood vessel in your neck or leg to the heart. This is also sometimes done using special pads placed on the chest. This may be used in an emergency, as a bridge to permanent pacing, when pacing is only needed short-term, or to further evaluate your condition. What are possible complications of bradycardia? These can include: ?? Development of other types of arrhythmias ?? Falls or fainting and injuries that happen as a result ?? Heart failure. This problem occurs when the heart weakens so much that it no longer pumps blood well. ?? Sudden cardiac arrest. This is when the heart suddenly stops beating. When should I call my healthcare provider? Call your healthcare provider right away if you have any of these: ?? Symptoms that don?t get better with treatment, or get worse ?? New symptoms Last Reviewed Date: 2021 ?? 2318-4750 The [employer]. All rights reserved. This information is not intended as a substitute for professional medical care. Always follow your healthcare professional's instructions. documented in this encounter Plan of Treatment Not on file documented as of this encounter Procedures Procedure Name Priority Date/Time Associated Diagnosis Comments BASIC METABOLIC PANEL Routine 02/07/2023 8:15 AM EDT MAGNESIUM STAT Add-on 02/07/2023 8:15 AM EDT BASIC METABOLIC PANEL Routine 02/05/2023 8:34 AM EDT MAGNESIUM Add-On 02/05/2023 8:34 AM EDT PHOSPHORUS STAT Add-on 02/05/2023 8:34 AM EDT GLUCOSE, GLUCOMETER Routine 02/02/2023 7 :31 PM EDT ECHO Routine 01/31/2023 10:40 AM EDT CBC WITHOUT DIFFERENTIAL Routine 01/31/2023 8:42 AM EDT BNP Routine 01/31/2023 8:42 AM EDT BASIC METABOLIC PANEL Routine 01/31/2023 8:42 AM EDT GLUCOSE, GLUCOMETER Routine 01/30/2023 7 :43 AM EDT GLUCOSE, GLUCOMETER Routine 01/29/2023 8 :13 PM EDT GLUCOSE, GLUCOMETER Routine 01/29/2023 4 :35 PM EDT GLUCOSE, GLUCOMETER Routine 01/29/2023 1 2:09 PM EDT GLUCOSE, GLUCOMETER Routine 01/29/2023 7 :22 AM EDT GLUCOSE, GLUCOMETER Routine 01/28/2023 7 :46 PM EDT GLUCOSE, GLUCOMETER Routine 01/28/2023 4 :19 PM EDT GLUCOSE, GLUCOMETER Routine 01/28/2023 1 1:21 AM EDT GLUCOSE, GLUCOMETER Routine 01/28/2023 7 :12 AM EDT GLUCOSE, GLUCOMETER Routine 01/27/2023 7 :50 PM EDT GLUCOSE, GLUCOMETER Routine 01/27/2023 4 :58 PM EDT HEMATOCRIT Routine 01/27/2023 12:31 PM EDT HEMOGLOBIN Routine 01/27/2023 12:31 PM EDT GLUCOSE, GLUCOMETER Routine 01/27/2023 1 1:46 AM EDT URINALYSIS, COMPLETE Routine 01/27/2023 11:33 AM EDT (PANEL)-URINALYSIS, COMPLETE Routine 01/27/2023 11:33 AM EDT CULTURE, URINE Routine 01/27/2023 11:33 AM EDT (PANEL)-CBC WITH DIFFERENTIAL Routine 01/27/2023 3:06 AM EDT CBC WITH DIFFERENTIAL Routine 01/27/2023 3:06 AM EDT MAGNESIUM Routine 01/27/2023 3:06 AM EDT PHOSPHORUS Routine 01/27/2023 3:06 AM EDT COMPREHENSIVE METABOLIC PANEL Routine 01/27/2023 3:06 AM EDT documented in this encounter Results * MAGNESIUM (02/07/2023 8:15 AM EDT) Only the most recent of3 resultswithin the time period is included. Magnesium 1.7 1.6 - 2.6 mg/dL 02/07/2023 10:20 AM EDT [facility]ACCREDITED BY [employer]) Blood BLOOD / Unknown Venipuncture / Unknown 02/07/2023 8:15 AM EDT 02/07/2023 8:19 AM EDT Louis Lowe MD LAB BLOOD ORDERA BLES [facility]ACCREDITED BY [employer]) [address] [place] [address] * (ABNORMAL) BASIC METABOLIC PANEL (02/07/2023 8:15 AM EDT) Only the most recent of3 resultswithin the time period is included. BUN 30(H) 8 - 26 mg/dL 02/07/2023 9:01 AM EDT [facility] (ACCREDITED BY [employer]) Sodium 137 136 - 145 mEq/L 02/07/2023 9:01 AM EDT [facility] (ACCREDITED BY [employer]) Potassium 3.4(L) 3.5 - 5.1 mEq/L 02/07/2023 9:01 AM EDT [facility] (ACCREDITED BY [employer]) Chloride 103 98 - 107 mEq/L 02/07/2023 9:01 AM EDT [facility] (ACCREDITED BY [employer]) CO2 23 23 - 31 mEq/L 02/07/2023 9:01 AM EDT [facility] (ACCREDITED BY [employer]) Anion Gap 11 4 - 12 mEq/L 02/07/2023 9:01 AM T [facility]ACCREDITED BY [employer]) Glucose 130(H) 70 - 105 mg/dL 02/07/2023 9:01 AM T [facility] (ACCREDITED BY [employer]) Creatinine 1.29(H) 0.72 - 1.25 mg/dL 02/07/2023 9:01 AM EDT [facility] (ACCREDITED BY [employer]) Glomerular Filtration Rate 57(L) >=59 mL/Min/1.7 3 m2 02/07/2023 9:01 AM T [facility] (ACCREDITED BY [employer]) Calcium 8.7 8.4 - 10.2 mg/dL 02/07/2023 9:01 AM T [facility] (ACCREDITED BY [employer]) Osmo (Calc'd) 293 mOsm/kg 02/07/2023 9:01 AM T [facility] (ACCREDITED BY [employer]) Bun:Creat Ratio 23.26 9:01 AM T [facility] (ACCREDITED BY THE [employer]ISTS) Blood BLOOD / Unknown Venipuncture / Unknown 02/07/2023 8:15 AM EDT 02/07/2023 8:19 AM EDT Louis Lowe MD LAB BLOOD ORDERA BLES [facility]ACCRED[facility] BY THE [employer]) [address] [place] [address] * PHOSPHORUS (02/05/2023 8:34 AM EDT) Only the most recent of2 resultswithin the time period is included. Phosphorus 2.7 2.3 - 4.7 mg/dL 02/05/2023 11:40 AM EDT [facility]ACCREDITED BY [employer]) Blood BLOOD / Unknown Venipuncture / Unknown 02/05/2023 8:34 AM EDT 02/05/2023 8:40 AM EDT Yann Fields DO LAB BLOOD ORDERABLES [facility]ACCRED[facility] BY [facility] [employer]) [address] [place] [address] * GLUCOSE, GLUCOMETER (02/02/2023 7:31 PM EDT) Only the most recent of13 resultswithin the time period is included. Glucose 91 70 - 100 mg/dL 02/02/2023 7:32 PM EDT [facility] POC TEST Blood BLOOD / Unknown 02/02/2023 7 :31 PM EDT 02/02/2023 7:32 PM EDT Beverly Nettles MD LAB POC UNSOLI CITED ORDERABLES Performing Organization Address City/[facility] Co de Phone Number [facility] POC TEST [address] [place] [address] * ECHO (01/31/2023 10:40 AM EDT) EC IVSd 1.2 cm [facility] EC LVIDd 5.1 cm [facility] EC LVIDs 3.2 cm [facility] EC LVPWd 1.2 cm [facility] EC IVS/LVPW 0.99 [facility] EC FS 37.2 % [facility] EC EDV(Teich) 122.7 ml [facility] A [facility] REPOR[facility] EC ESV(Teich) 40.6 ml [facility] A [facility] REPORTS EC EF(Teich) 66.9 % [facility]POR[facility] EC EF (est.) 46.5 % [facility] REPOR[facility] EC EDV(cubed) 131.1 ml [facility] A CARDI[facility] REPORTS EC ESV(cubed) 32.5 ml XCELER A CARDIAC REPORTS EC EF(cubed) 75.2 % [facility]A [facility] REPOR[facility] EC LV mass(C)d 251.8 grams XCELE RA CARDIAC REPORTS EC LV mass(C)dI 113.3 grams/m\S \2 [facility] C[facility] REPOR[facility] EC SV(Teich) 82.1 ml [facility]ELERA CARDIAC REPORTS EC SI(Teich) 36.9 ml/m\S\2 XCELERA CARDIAC REPORTS EC SV(cubed) 98.7 ml XCELERA CARDIAC REPORTS EC SI(cubed) 44.4 ml/m\S\2 XCELERA CARDIAC REPORTS EC Ao root diam 3.2 cm XCEL ERA CARDIAC REPORTS EC Ao root area 8 cm\S\2 XCEL ERA CARDIAC REPORTS EC LA dimension 4.2 cm XCEL ERA CARDIAC REPORTS EC LA/Ao 1.3 XCELERA CARDIAC REPORTS EC LVOT diam 2.4 cm XCELERA CARDIAC REPORTS EC LVOT area 4.3 cm\S\2 XCELERA CARDIAC REPORTS EC LVOTareatraced 4.2 cm\S\2 XC ELERA CARDIAC REPORTS EC LVLd ap4 8.4 cm XCELERA CARDIAC REPORTS EC EDV(MOD-sp4) 122 ml XCEL ERA CARDIAC REPORTS EC LVLs ap4 8.4 cm XCELERA CARDIAC REPORTS EC ESV(MOD-sp4) 67 ml XCEL ERA CARDIAC REPORTS EC EF(MOD-sp4) 45.1 % XCELE RA CARDIAC REPORTS EC LVLd ap2 8.2 cm XCELERA CARDIAC REPORTS EC EDV(MOD-sp2) 134 ml XCEL ERA CARDIAC REPORTS EC LVLs ap2 7.9 cm XCELERA CARDIAC REPORTS EC ESV(MOD-sp2) 69.2 ml XCEL ERA CARDIAC REPORTS EC EF(MOD-sp2) 48.4 % XCELE RA CARDIAC REPORTS EC SV(MOD-sp4) 55 ml XCELE RA CARDIAC REPORTS EC SI(MOD-sp4) 24.8 ml/m\S\2 XCELE RA CARDIAC REPORTS EC SV(MOD-sp2) 64.8 ml XCELE RA CARDIAC REPORTS EC SI(MOD-sp2) 29.2 ml/m\S\2 XCELE RA CARDIAC REPORTS EC MVEmaxvel 57.4 cm/sec XCELERA CARDIAC REPORTS EC MVAmaxvel 107 cm/sec XCELERA CARDIAC REPORTS EC MV E/A 0.54 XCELERA CARDIAC REPORTS EC MV dec time 0.14 sec XCELE RA CARDIAC REPORTS EC Ao V2 max 196.8 cm/sec XCELERA CARDIAC REPORTS EC Ao max PG 15.5 mmHg XCELERA CARDIAC REPORTS EC Ao max PG (full) 12.2 mmHg XCELERA CARDIAC REPORTS EC Ao V2 mean 128 cm/sec XCELER A CARDIAC REPORTS EC Ao mean PG 7.8 mmHg XCELER A CARDIAC REPORTS EC Ao mean PG (full) 6.4 mmHg XCELERA CARDIAC REPORTS EC Ao V2 VTI 32.9 cm XCELERA CARDIAC REPORTS EC CHELITA(I,A) 2 cm\S\2 XCELERA CARDIAC REPORTS EC CHELITA(I,D) 2 cm\S\2 XCELERA CARDIAC REPORTS EC CHELITA(V,A) 2 cm\S\2 XCELERA CARDIAC REPORTS EC CHELITA(V,D) 2 cm\S\2 XCELERA CARDIAC REPORTS EC LVOTmaxgradient 3.3 mmHg X CELERA CARDIAC REPORTS EC [id number] 1.3 mmHg XCELER A CARDIAC REPORTS EC LVOTmaxvel 90.1 cm/sec XCELER A CARDIAC REPORTS EC LV V1 mean 53.4 cm/sec XCELER A CARDIAC REPORTS EC LV V1 VTI 15.3 cm XCELERA CARDIAC REPORTS EC SV(Ao) 264.4 ml XCELERA CARDIAC REPORTS EC SI(Ao) 119 ml/m\S\2 XCELERA CARDIAC REPORTS EC SV(LVOT) 66.4 ml XCELERA CARDIAC REPORTS EC SI(LVOT) 29.9 ml/m\S\2 XCELERA CARDIAC REPORTS EC PA V2 max 140 cm/sec XCELERA CARDIAC REPORTS EC PA max PG 7.8 mmHg XCELERA CARDIAC REPORTS Anatomical Region Laterality Modality Other 01/31/2023 10:4 0 AM EDT Narrative 02/05/2023 10:10 AM EDT Reason for Exam: Date of Service: 01/31/2023 Patient Height ??175.0 ??cm Patient Weight ??108.0 ??kg Systolic Pressure ??97 ??mmHg Diastolic Pressure ??60 ??mmHg Study Location ??[facility] ?? BSA ??2.2 ??m^2 Procedure: A complete two-dimensional transthoracic echocardiogram was performed (2D, M-mode, spectral and color flow Doppler). Study Quality: Technically adequate. A contrast injection of Definity was performed to improve assessment of LV function. Left Ventricle: The left ventricle is mildly dilated. LVEDD 5.6 cm. IVSD 1.2 cm (mildly increased). Normal posterior wall thickness. The LV ejection fraction is mildly decreased. Ejection Fraction = 40-45%. Abnormal (paradoxical) septal motion consistent with LBBB. There is no thrombus. Left Ventricular Filling pattern is ??normal for age. Left Atrium: The left atrial size is normal. Right Atrium: Right atrial size is normal. Right Ventricle: There is a pacemaker lead in the right ventricle. TAPSE is reduced most likely due to prior cardiac surgery. Aortic Valve: The peak aortic valve velocity 201 cm/s. Aortic mean pressure gradient= 8 mmHg. No paravalvular leak. S/p [id number] TAVR with 26 mm Evolut FX (within 25 mm Magna, post dilated with 23 mm True balloon) on 01/08/23. Well-seated, normally functioning aortic prosthesis. Mitral Valve: The mitral valve is normal in structure and function. There is mild mitral regurgitation. Tricuspid Valve: The tricuspid valve is not well visualized. There was insufficient TR detected to calculate RV systolic pressure. Pulmonic Valve: The Pulmonic Valve is partially seen. No pulmonic valvular regurgitation. Arteries: The aortic root is not well visualized. Venous: Pulmonary vein flow attempted waveform not well seen The inferior vena cava is normal in size, with a normal collapsibility index. Pericardium/Pleura: There is no pericardial effusion. MMode 2D Measurements & Calculations IVSd - 1.2 cm LVIDd - 5.1 cm LVIDs - 3.2 cm LVPWd - 1.2 cm IVS/LVPW - 0.99 FS - 37.2 % EDV(Teich) - 122.7 ml ESV(Teich) - 40.6 ml EF(Teich) - 66.9 % EF (est.) - 46.5 % EDV(cubed) - 131.1 ml ESV(cubed) - 32.5 ml EF(cubed) - 75.2 % LV mass(C)d - 251.8 grams LV mass(C)dI - 113.3 grams/m^2 SV(Teich) - 82.1 ml SI(Teich) - 36.9 ml/m^2 SV(cubed) - 98.7 ml SI(cubed) - 44.4 ml/m^2 Ao root diam - 3.2 cm Ao root area - 8 cm^2 LA dimension - 4.2 cm LA/Ao - 1.3 LVOT diam - 2.4 cm LVOT area - 4.3 cm^2 LVOT area(traced) - 4.2 cm^2 LVLd ap4 - 8.4 cm EDV(MOD-sp4) - 122 ml LVLs ap4 - 8.4 cm ESV(MOD-sp4) - 67 ml EF(MOD-sp4) - 45.1 % LVLd ap2 - 8.2 cm EDV(MOD-sp2) - 134 ml LVLs ap2 - 7.9 cm ESV(MOD-sp2) - 69.2 ml EF(MOD-sp2) - 48.4 % SV(MOD-sp4) - 55 ml SI(MOD-sp4) - 24.8 ml/m^2 SV(MOD-sp2) - 64.8 ml SI(MOD-sp2) - 29.2 ml/m^2 Doppler Measurements & Calculations MV E max bee - 57.4 cm/sec MV A max ebe - 107 cm/sec MV E/A - 0.54 MV dec time - 0.14 sec Ao V2 max - 196.8 cm/sec Ao max PG - 15.5 mmHg Ao max PG (full) - 12.2 mmHg Ao V2 mean - 128 cm/sec Ao mean PG - 7.8 mmHg Ao mean PG (full) - 6.4 mmHg Ao V2 VTI - 32.9 cm CHELITA(I,A) - 2 cm^2 CHELITA(I,D) - 2 cm^2 CHELITA(V,A) - 2 cm^2 CHELTIA(V,D) - 2 cm^2 LVOT max gradient - 3.3 mmHg LV V1 mean PG - 1.3 mmHg LVOT max bee - 90.1 cm/sec LV V1 mean - 53.4 cm/sec LV V1 VTI - 15.3 cm SV(Ao) - 264.4 ml SI(Ao) - 119 ml/m^2 SV(LVOT) - 66.4 ml SI(LVOT) - 29.9 ml/m^2 PA V2 max - 140 cm/sec PA max PG - 7.8 mmHg Conclusion The left ventricle is mildly dilated. Ejection Fraction = 40-45%. S/p [id number] TAVR with 26 mm Evolut FX (within 25 mm Magna, post dilated with 23 mm True balloon) on 01/08/23. Well-seated, normally functioning aortic prosthesis. No paravalvular leak. The peak aortic valve velocity 2 m/s. Aortic mean pressure gradient= 8 mmHg. InterpretingPhysician:Interpreting Physician: ?? Timothy ??Mabel, ??electronically signed on 2023-02-05 10:10:24.55 Procedure Note Timothy Monroe MD - 02/05/2023 Reason for Exam: Date of Service: 01/31/2023 Patient Height 175.0 cm Patient Weight 108.0 kg Systolic Pressure 97 mmHg Diastolic Pressure 60 mmHg Study Location E[facility] BSA 2.2 m^2 Procedure: A complete two-dimensional transthoracic echocardiogram was performed(2D, M-mode, spectral and color flow Doppler). Study Quality: Technically adequate. A contrast injection of Definity was performed to improve assessment ofLV function. Left Ventricle: The left ventricle is mildly dilated. LVEDD 5.6 cm. IVSD 1.2 cm (mildly increased). Normal posterior wallthickness. The LV ejection fraction is mildly decreased. Ejection Fraction = 40-45%. Abnormal (paradoxical) septal motion consistent with LBBB. There is no thrombus. Left Ventricular Filling pattern is normal for age. Left Atrium: The left atrial size is normal. Right Atrium: Right atrial size is normal. Right Ventricle: There is a pacemaker lead in the right ventricle. TAPSE is reduced most likely due to prior cardiac surgery. Aortic Valve: The peak aortic valve velocity 201 cm/s. Aortic mean pressure gradient= 8 mmHg. No paravalvular leak. S/p [id number] TAVR with 26 mm Evolut FX (within 25 mm Magna, post dilated with 23 mm True balloon) on 01/08/23. Well-seated, normally functioning aortic prosthesis. Mitral Valve: The mitral valve is normal in structure and function. There is mild mitral regurgitation. Tricuspid Valve: The tricuspid valve is not well visualized. There was insufficient TR detected to calculate RV systolic pressure. Pulmonic Valve: The Pulmonic Valve is partially seen. No pulmonic valvular regurgitation. Arteries: The aortic root is not well visualized. Venous: Pulmonary vein flow attempted waveform not well seen The inferior vena cava is normal in size, with a normal collapsibilityindex. Pericardium/Pleura: There is no pericardial effusion. MMode 2D Measurements & Calculations IVSd - 1.2 cm LVIDd - 5.1 cm LVIDs - 3.2 cm LVPWd - 1.2 cm IVS/LVPW - 0.99 FS - 37.2 % EDV(Teich) - 122.7 ml ESV(Teich) - 40.6 ml EF(Teich) - 66.9 % EF (est.) - 46.5 % EDV(cubed) - 131.1 ml ESV(cubed) - 32.5 ml EF(cubed) - 75.2 % LV mass(C)d - 251.8 grams LV mass(C)dI - 113.3 grams/m^2 SV(Teich) - 82.1 ml SI(Teich) - 36.9 ml/m^2 SV(cubed) - 98.7 ml SI(cubed) - 44.4 ml/m^2 Ao root diam - 3.2 cm Ao root area - 8 cm^2 LA dimension - 4.2 cm LA/Ao - 1.3 LVOT diam - 2.4 cm LVOT area - 4.3 cm^2 LVOT area(traced) - 4.2 cm^2 LVLd ap4 - 8.4 cm EDV(MOD-sp4) - 122 ml LVLs ap4 - 8.4 cm ESV(MOD-sp4) - 67 ml EF(MOD-sp4) - 45.1 % LVLd ap2 - 8.2 cm EDV(MOD-sp2) - 134 ml LVLs ap2 - 7.9 cm ESV(MOD-sp2) - 69.2 ml EF(MOD-sp2) - 48.4 % SV(MOD-sp4) - 55 ml SI(MOD-sp4) - 24.8 ml/m^2 SV(MOD-sp2) - 64.8 ml SI(MOD-sp2) - 29.2 ml/m^2 Doppler Measurements & Calculations MV E max bee - 57.4 cm/sec MV A max bee - 107 cm/sec MV E/A - 0.54 MV dec time - 0.14 sec Ao V2 max - 196.8 cm/sec Ao max PG - 15.5 mmHg Ao max PG (full) - 12.2 mmHg Ao V2 mean - 128 cm/sec Ao mean PG - 7.8 mmHg Ao mean PG (full) - 6.4 mmHg Ao V2 VTI - 32.9 cm CHELITA(I,A) - 2 cm^2 CHELITA(I,D) - 2 cm^2 CHELITA(V,A) - 2 cm^2 CHELITA(V,D) - 2 cm^2 LVOT max gradient - 3.3 mmHg LV V1 mean PG - 1.3 mmHg LVOT max bee - 90.1 cm/sec LV V1 mean - 53.4 cm/sec LV V1 VTI - 15.3 cm SV(Ao) - 264.4 ml SI(Ao) - 119 ml/m^2 SV(LVOT) - 66.4 ml SI(LVOT) - 29.9 ml/m^2 PA V2 max - 140 cm/sec PA max PG - 7.8 mmHg Conclusion The left ventricle is mildly dilated. Ejection Fraction = 40-45%. S/p [id number] TAVR with 26 mm Evolut FX (within 25 mm Magna, post dilated with 23 mm True balloon) on 01/08/23. Well-seated, normally functioning aortic prosthesis. No paravalvular leak. The peak aortic valve velocity 2 m/s. Aortic mean pressure gradient= 8 mmHg. InterpretingPhysician:Interpreting Physician: Timothy Monroe,electronically signed on 2023-02-05 10:10:24.55 Sparkle Georges [facility]- ECHOCARDIOLO GY ORDERABLES * (ABNORMAL) BNP (01/31/2023 8:42 AM EDT) Brain Natr Peptide 490(H) <=100 pg/mL 01/31/2023 10:08 AM EDT [facility] [employer] [facility] [employer]) Blood BLOOD / Unknown Venipuncture / Unknown 01/31/2023 8:42 AM EDT 01/31/2023 8:45 AM EDT Sparkle Georges [facility]- LAB BLOOD OR DERABLES [facility] ([facility] [employer] [facility] [employer]) [address] [place] [address] * (ABNORMAL) CBC WITHOUT DIFFERENTIAL (01/31/2023 8:42 AM EDT) WBC (White Blood Cell Count) 5.00 4.50 - 11.00 k/uL 01/31/2023 8:54 AM [facility] (ACCREDITED BY [facility] [employer] [facility]) RBC (Red Blood Cell Count) 3.61(L) 4.40 - 5.90 M/uL 01/31/2023 8:54 AM T [facility] [employer]) Hemoglobin 11.2(L) 13.0 - 18.0 g/dL 01/31/2023 8:54 AM [facility] ([facility]CRED[facility] BY [facility] [employer] [facility] [employer]) Hematocrit 35.4(L) 40.0 - 52.0 % 01/31/2023 8:54 AM [facility] (ACCRED[facility] BY [facility] [employer] [facility] [employer] [facility]) MCV (Mean Corpuscular Volume) 98.1 80.0 - 100.0 fL 01/31/2023 8:54 AM [facility] ([facility] BY [facility]) MCH (Mean Corpuscular Hemoglobin) 31.0 26.0 - 34.0 pg 01/31/2023 8:54 AM [facility] ([facility] BY [facility]) MCHC (Mean Corpuscular Hemoglobin Concentration) 31.6(L) 32.0 - 36.0 g/dL 01/31/2023 8:54 AM [facility] (ACCREDITED BY [facility] [employer] [facility]) RDW (Red Cell Distribution Width) 16.9(H) 11.5 - 14.5 % 01/31/2023 8:54 AM [facility] ([facility] BY [facility] [employer]) Platelet Count 112(L) 150 - 440 k/uL 01/31/2023 8:54 AM [facility] ([facility] BY [facility]) MPV (Mean Platelet Volume) 9.2 7.4 - 10.6 fL 01/31/2023 8:54 AM [facility] (ACCRED[facility] BY [facility] [employer] [employer]) Nucleated RBC 0.0 0 /100 WBC 01/31/2023 8:54 AM EDT [facility] [employer]) Absolute Nucleated RBC (#) <0.01 0 k/uL 01/31/2023 8:54 AM EDT [facility] [employer] [facility] [employer] [facility]) Blood BLOOD / Unknown Venipuncture / Unknown 01/31/2023 8:42 AM EDT 01/31/2023 8:45 AM EDT Sparkle Georges [facility]- LAB BLOOD OR DERABLES Performing Organization Address City/[facility]/ZIP Co de Phone Number [facility] [employer] [employer]) [address] [place] [phone] * (ABNORMAL) HEMATOCRIT (01/27/2023 12:31 PM EDT) Hematocrit 34.1(L) 40.0 - 52.0 % 01/27/2023 12:55 PM EDT [facility] [employer] [facility] [employer]) Blood BLOOD / Unknown Venipuncture / Unknown 01/27/2023 12:31 PM EDT 01/27/2023 12:35 PM EDT Telly Harris DO LAB BLOOD ORDER [facility] ([facility] [employer]) [address] [place] [phone] * (ABNORMAL) HEMOGLOBIN (01/27/2023 12:31 PM EDT) Hemoglobin 10.4(L) 13.0 - 18.0 g/dL 01/27/2023 12:55 PM EDT [facility] [employer]) Blood BLOOD / Unknown Venipuncture / Unknown 01/27/2023 12:31 PM EDT 01/27/2023 12:35 PM EDT Telly Harris DO LAB BLOOD ORDER [facility] ([facility] [employer] [employer] [facility]) [address] [phone] * (ABNORMAL) URINALYSIS, COMPLETE (01/27/2023 11:33 AM EDT) Color, Urine Straw Colorless, Yellow, or Straw 01/27/2023 11:46 AM T [facility] ([facility] [employer] ) Clarity, Urine Clear Clear 01/27/2023 11:46 AM [facility] ([facility]CRED[facility] BY [facility] ) Specific [place], Urine 1.002(L) 1.005 - 1.030 01/27/2023 11:46 AM [facility] ([facility]CRED[facility] BY [facility] ) pH, Urine 6.5 5.0 - 8.0 01/27/2023 11:46 AM [facility] ([facility] ) Hemoglobin, Urine 2+(A) Negative 01/27/2023 11:46 AM [facility] ([facility] ) Bilirubin, Urine Negative Negative 01/27/2023 11:46 AM [facility] ([facility] ) Urobilinogen, Urine Normal Normal 01/27/2023 11:46 AM [facility] ([facility] BY [facility] ) Ketones, Urine Negative Negative 01/27/2023 11:46 AM [facility] ([facility] ) Glucose, Urine Negative Negative 01/27/2023 11:46 AM [facility] ([facility] ) Nitrites, Urine Negative Negative 01/27/2023 11:46 AM [facility] ([facility] BY [facility] ) Leukocyte Esterase, Urine Negative Negative 01/27/2023 11:46 AM [facility] ([facility] ) Protein, Urine Negative Negative 01/27/2023 11:46 AM [facility] ([facility] BY [facility] ) RBC, Urine 8(H) 0 /HPF 01/27/2023 11:46 AM EDT [facility] ) WBC, Urine 1(H) 0 /HPF 01/27/2023 11:46 AM EDT [facility] ([facility] ) Squamous Epithelial Cells, Urine Few(A) None Seen /HPF 01/27/2023 11:46 AM EDT [facility] ) Bacteria, Urine None Seen None Seen 01/27/2023 11:46 AM EDT [facility] ) Hyaline Casts, Urine Present(A) (none) /LPF 01/27/2023 11:46 AM EDT [facility] [facility] ) Urine URETHRAL STRUCTURE / Unknown Non-blood Collection / Unknown 01/27/2023 11:33 AM EDT 01/27/2023 11:37 AM EDT Marlon Montoya Rehan [facility] LAB URINE ORDERABL ES Performing Organization Address City/[facility]/ZIP Co de Phone Number [facility]) [address] [place] [phone] * CULTURE, URINE (01/27/2023 11:33 AM EDT) Urine Culture Less than 10,000 CFU/ML Growth insufficient to satisfy clinical/microbi ological criteria for further work up. 01/28/2023 8:35 AM EDT [facility] ) Urine URETHRAL STRUCTURE / Unknown Non-blood Collection / Unknown 01/27/2023 11:33 AM EDT 01/27/2023 11:37 AM EDT [employer] Rehan [facility] LAB MICROBIOLOGY O RDERABLES Performing Organization Address City/[facility]/ZIP Co de Phone Number [facility] [employer] [facility]) [address] [place], [place] [phone] * (ABNORMAL) CBC WITH DIFFERENTIAL (01/27/2023 3:06 AM [facility]) WBC (White Blood Cell Count) 4.24(L) 4.50 - 11.00 k/uL 01/27/2023 3:42 AM [facility] ([facility] BY [facility]) RBC (Red Blood Cell Count) 3.33(L) 4.40 - 5.90 M/uL 01/27/2023 3:42 AM [facility] (AC[facility] BY [facility]) Hemoglobin 10.0(L) 13.0 - 18.0 g/dL 01/27/2023 3:42 AM [facility] ([facility]) Hematocrit 32.5(L) 40.0 - 52.0 % 01/27/2023 3:42 AM [facility] (AC[facility] BY [facility]) MCV (Mean Corpuscular Volume) 97.6 80.0 - 100.0 fL 01/27/2023 3:42 AM [facility] ([facility]) MCH (Mean Corpuscular Hemoglobin) 30.0 26.0 - 34.0 pg 01/27/2023 3:42 AM [facility] ([facility] BY [facility]) MCHC (Mean Corpuscular Hemoglobin Concentration) 30.8(L) 32.0 - 36.0 g/dL 01/27/2023 3:42 AM [facility] ([facility] BY [facility]) RDW (Red Cell Distribution Width) 17.2(H) 11.5 - 14.5 % 01/27/2023 3:42 AM [facility] ([facility] BY [facility]) Platelet Count 97(L) 150 - 440 k/uL 01/27/2023 3:42 AM [facility] ([facility]) MPV (Mean Platelet Volume) 10.3 7.4 - 10.6 fL 01/27/2023 3:42 AM [facility] ([facility]) Nucleated RBC 0.0 0 /100 WBC 01/27/2023 3:42 AM [facility] ([facility]) Absolute Nucleated RBC (#) <0.01 0 k/uL 01/27/2023 3:42 AM [facility] ([facility]) Neutrophils (%) 48 % 3:42 AM [facility] ([facility]) Lymphocytes (%) 26 % 3:42 AM [facility] ([facility]) Monocytes (%) 10 % 01/27/2023 3:42 AM [facility] ([facility]) Eosinophils (%) 14 % 3:42 AM [facility] ([facility]) Basophils (%) 1 % 01/27/2023 3:42 AM [facility] ([facility]) Immature Granulocytes (%) 1 % 01/27/2023 3:42 AM [facility] ([facility]) Absolute Neutrophils (#) 2.06 1.80 - 7.70 k/uL 01/27/2023 3:42 AM [facility] ([facility]) Absolute Lymphocytes (#) 1.09 1.00 - 4.80 k/uL 01/27/2023 3:42 AM [facility] ([facility]) Absolute Monocytes (#) 0.43 0.00 - 0.80 k/uL 01/27/2023 3:42 AM [facility] (AC[facility] BY [facility]) Absolute Eosinophils (#) 0.60(H) 0.00 - 0.50 k/uL 01/27/2023 3:42 AM [facility] ([facility]) Absolute Basophils (#) 0.03 0.00 - 0.20 k/uL 01/27/2023 3:42 AM [facility] ([facility]) Absolute Immature Granulocytes (#) 0.03(H) 0 k/uL 01/27/2023 3:42 AM EDT [facility]) Blood BLOOD / Unknown Venipuncture / Unknown 01/27/2023 3:06 AM EDT 01/27/2023 3:11 AM EDT Louis Lowe MD LAB BLOOD ORDERA [facility]) [address] [place] [address] * (ABNORMAL) COMPREHENSIVE METABOLIC PANEL (01/27/2023 3:06 AM EDT) Sodium 131(L) 136 - 145 mEq/L 01/27/2023 4:02 AM [facility] ([facility]) Potassium 3.5 3.5 - 5.1 mEq/L 01/27/2023 4:02 AM [facility] ([facility]) Chloride 97(L) 98 - 107 mEq/L 01/27/2023 4:02 AM [facility] ([facility]) CO2 24 23 - 31 mEq/L 01/27/2023 4:02 AM [facility] ([facility]) Calcium 7.9(L) 8.4 - 10.2 mg/dL 01/27/2023 4:02 AM [facility] ([facility]) Glucose 83 70 - 105 mg/dL 01/27/2023 4:02 AM [facility] ([facility]) BUN 58(H) 8 - 26 mg/dL 01/27/2023 4:02 AM [facility] ([facility] BY [facility]) Creatinine 1.93(H) 0.72 - 1.25 mg/dL 01/27/2023 4:02 AM [facility] (ACCREDITED BY [employer]) Glomerular Filtration Rate 35(L) >=59 mL/Min/1.7 3 m2 01/27/2023 4:02 AM [facility] (ACCREDITED BY [employer]) Protein, Total 5.0(L) 6.2 - 8.1 g/dL 01/27/2023 4:02 AM [facility] (ACCREDITED BY [employer]) Albumin 2.6(L) 3.2 - 4.6 g/dL 01/27/2023 4:02 AM [facility] (ACCREDITED BY [employer]) Bilirubin, Total 1.1 0.1 - 1.2 mg/dL 01/27/2023 4:02 AM [facility] (ACCREDITED BY [employer]) Alk Phosphatase 49 40 - 150 U/L 01/27/2023 4:02 [facility] (ACCREDITED BY [employer]) SGOT (AST) 41(H) 5 - 34 U/L 01/27/2023 4:02 [facility] (ACCREDITED BY [employer]) SGPT (ALT) 20 0 - 55 U/L 01/27/2023 4:02 AM [facility] (ACCREDITED BY [employer]) Anion Gap 10 4 - 12 mEq/L 01/27/2023 4:02 AM [facility] (ACCREDITED BY [employer]) Bun:Creat Ratio 30.05 3 4:02 AM [facility] (ACCREDITED BY [employer]) Osmo (Calc'd) 289 mOsm/kg 01/27/2023 4:02 AM [facility] (ACCREDITED BY [employer]) Globulin (Calc'd) 2.4 g/dL 01/27/2023 4:02 AM [facility] (ACCREDITED BY [employer]) A:G Ratio 1.08 01/27/2023 4:02 [facility] (ACCREDITED BY [employer]) Blood BLOOD / Unknown Venipuncture / Unknown 01/27/2023 3:06 AM EDT 01/27/2023 3:11 AM EDT Louis Lowe MD LAB BLOOD [facility] (ACCREDITED BY [employer]) [address] [place] [address] documented in this encounter Visit Diagnoses Diagnosis Mitral and aortic valve disease- Primary Mitral and aortic heart valve diseases, unspecified Hypertension Unspecified essential hypertension Hyperlipidemia Other and unspecified hyperlipidemia Coronary artery disease Coronary atherosclerosis of unspecified type of vessel, reno-sparks or graft Vitreous degeneration, right eye Sensorineural hearing loss, bilateral Psoriasis with arthropathy (CMS/HCC) (CMS-HCC) ([facility]) ([facility]) Psoriatic arthropathy Postsurgical aortocoronary bypass status Posttraumatic stress disorder Obstructive sleep apnea syndrome in adult Obstructive sleep apnea (adult) (pediatric) Mild intermittent asthma Unspecified asthma Cerebellar stroke syndrome Acute, but ill-defined, cerebrovascular disease Subarachnoid hemorrhage (CMS/HCC) (CMS-HCC) ([facility] [facility]) ([facility]) Subarachnoid hemorrhage Personal history of transient ischemic attack (TIA), and cerebral infarction without residual deficits Pancreatitis Acute pancreatitis Osteoarthritis of both knees Osteoarthrosis, unspecified whether generalized or localized, lower leg Diabetes mellitus (CMS/HCC) (CMS-HCC) ([facility]) ([facility]) Type II or unspecified type diabetes mellitus without mention of complication, not stated as uncontrolled Diverticulitis Diverticulitis of colon (without mention of hemorrhage) Fatty liver Other chronic nonalcoholic liver disease Former smoker Personal history of tobacco use, presenting hazards to health GERD (gastroesophageal reflux disease) Esophageal reflux Psoriasis Other psoriasis 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 AMS (altered mental status) CKD (chronic kidney disease) stage 3, GFR 30-59 ml/min (CMS/HCC) (CMS-HCC) ([facility]) ([facility]) Chronic kidney disease, Stage III (moderate) 01/08/23 TransCatheter Aortic Valve Replacement ([id number], 26 Medtronic Evolut Pro, via the Left Transfemoral Approach) EF 35% documented in this encounter Administered Medications Inactive Administered Medications - up to 3 most recent administrations Medication Order MAR Action Action Date Dose Rate Site acetaminophen (TYLENOL) tablet 650 mg 650 mg, Oral, EVERY 6 HOURS NEEDED, Fever, Pain, Starting on Sun01/26/23 at 1745, For 365 days $ Given 02/02/2023 7:08 PM EDT 650 mg $ Given 01/28/2023 6:52 PM EDT 650 mg $ Given 01/26/2023 9:09 PM EDT 650 mg aspirin EC tablet 81 mg 81 mg, Oral, DAILY, First dose (after last reorder) on Sun01/27/23 at 0800, For 365 days, Do NOT open, crush, break, or chew. Give with food and a full glass of water to reduce GI upset. $ Given 02/07/2023 7:54 AM EDT 81 mg $ Given 02/06/2023 9:08 AM EDT 81 mg $ Given 02/05/2023 8:42 AM EDT 81 mg bisacodyL (DULCOLAX) suppository 10 mg 10 mg, Per Rectum, DAILY NEEDED, Constipation, Starting on Sun01/26/23 at 1745, For 365 days $ Given 01/28/2023 4:07 PM EDT 10 mg $ Given 01/26/2023 9:09 PM EDT 10 mg clopidogreL (PLAVIX) tablet 75 mg 75 mg, Oral, DAILY, First dose (after last reorder) on Sun01/27/23 at 0800, For 365 days $ Given 02/07/2023 7:54 AM EDT 75 mg $ Given 02/06/2023 9:09 AM EDT 75 mg $ Given 02/05/2023 8:41 AM EDT 75 mg diclofenac sodium (VOLTAREN) 1 % gel 4 g 4 g, Topical, FOUR TIMES A DAY, First dose on Sun01/30/23 at 1200, For 365 days, Apply to affected area. Dose should be measured using the dosing card supplied in medication carton. Med [facility] $ Given 02/02/2023 7:10 PM EDT 4 g $ Given 02/01/2023 5:34 PM EDT 4 g $ Given 02/01/2023 9:16 AM EDT 4 g docusate sodium (COLACE) capsule 100 mg 100 mg, Oral, TWICE A DAY, First dose (after last reorder) on Sun01/26/23 at 2100, For 365 days $ Given 01/27/2023 8:08 AM EDT 100 mg $ Given 01/26/2023 9:04 PM EDT 100 mg docusate sodium (COLACE) capsule 100 mg 100 mg, Oral, DAILY NEEDED, Constipation, Starting on Sun01/26/23 at 1745, For 365 days docusate sodium (COLACE) capsule 100 mg 100 mg, Oral, TWICE A DAY, First dose (after last modification) on Sun01/31/23 at 0800, For 721 doses, On hold since Sun02/05/2023 at 0725 until manually unheld docusate sodium (COLACE) capsule 200 mg 200 mg, Oral, TWICE A DAY, First dose (after last modification) on Sun01/27/23 at 2100, For 728 doses $ Given 01/30/2023 8:16 AM EDT 200 mg $ Given 01/29/2023 9:15 PM EDT 200 mg $ Given 01/29/2023 8:08 AM EDT 200 mg enoxaparin (LOVENOX) 40 mg/0.4 mL injection 40 mg 40 mg, Subcutaneous, DAILY AT 1600, First dose (after last reorder) on Sun01/27/23 at 1600, For 365 days, Inject at a 90 degree angle. Do NOT expel air bubble at tip of syringe. Do NOT massage injection site. Alternate between the left and right anterolateral and left and right posterolateral abdominal wall. Document administration site. BLACK BOX WARNING: Epidural or spinal hematomas may occur in patients who are anticoagulated with LMWHs or heparinoids and are receiving neuraxial anesthesia or undergoing spinal puncture. These hematomas may result in long-term or permanent paralysis. Consider these risks when scheduling patients for spinal procedures. $ Given 02/06/2023 4:32 PM EDT 40 mg Abdominal Tissue $ Given 02/05/2023 4:28 PM EDT 40 mg Le ft Anterior Lateral Abdomen $ Given 02/04/2023 4:38 PM EDT 40 mg Ri ght Anterior Lateral Abdomen escitalopram (LEXAPRO) tablet 20 mg 20 mg, Oral, DAILY, First dose (after last reorder) on Sun01/27/23 at 0800, For 365 days, Fall Risk Medication $ Given 02/07/2023 7:54 AM EDT 20 mg $ Given 02/06/2023 9:08 AM EDT 20 mg $ Given 02/05/2023 8:42 AM EDT 20 mg evolocumab (REPATHA SURECLICK) pen 140 mg 140 mg, Subcutaneous, EVERY 2 WEEKS, First dose (after last modification) on Sun01/30/23 at 1200, For 365 days, Refrigerate Patient supply (#2 single-use pens)- please send remainder with him at discharge, Therapeutic Interchange Response: Pharmacy to implement System P&T approved Therapeutic Interchange (if available) $ Given 01/30/2023 11:50 AM EDT 140 mg Abdominal Tissue gabapentin (NEURONTIN) capsule 100 mg 100 mg, Oral, AT BEDTIME, First dose (after last reorder) on Sun01/26/23 at 2100, For 365 days, Fall Risk Medication $ Given 02/06/2023 9:28 PM EDT 100 mg $ Given 02/05/2023 9:24 PM EDT 100 mg $ Given 02/03/2023 8:34 PM EDT 100 mg hydrALAZINE (APRESOLINE) tablet 25 mg 25 mg, Oral, EVERY 8 HOURS NEEDED, PRN use for SBP > 180 or DBP > 110, Starting on Sun01/26/23 at 1745, For 365 days loperamide (IMODIUM) capsule 2 mg 2 mg, Oral, FOUR TIMES A DAY NEEDED, Diarrhea, Starting on Sun02/05/23 at 1113, For 30 days, Give after each loose stool. Maximum dose is 16 mg (8 capsules in 24 hours) magnesium sulfate 4 gram/100 mL (4 %) IVPB (premix) 4 g 4 g, Intravenous, at 8.3 mL/hr, Administer over 12 Hours, ONCE, On Sun01/27/23 at 1135, For 1 dose, Recommended for Serum Magnesium LESS than 1 mg/dL $ New Bag/Syringe 01/27/2023 1:46 PM EDT 4 g 8.3 mL/hr magnesium sulfate 4 gram/100 mL (4 %) IVPB (premix) 4 g 4 g, Intravenous, at 8.3 mL/hr, Administer over 12 Hours, ONCE, On Sun02/05/23 at 1600, For 1 dose, Recommended for Serum Magnesium LESS than 1 mg/dL $ New Bag/Syringe 02/05/2023 4:24 PM EDT 4 g 8.3 mL/hr metoprolol succinate XL (TOPROL-XL) 24 hr tablet 25 mg 25 mg, Oral, DAILY, First dose (after last reorder) on Sun01/27/23 at 0800, For 365 days, Do NOT crush or chew. May break in half. Hold if BP <100/60 and or HR <60 $ Given 02/07/2023 7:54 AM EDT 25 mg $ Given 02/06/2023 9:15 AM EDT 25 mg $ Given 02/05/2023 8:42 AM EDT 25 mg nystatin (MYCOSTATIN) powder Topical, TWICE A DAY, First dose on Cindy 02/01/23 at 2100, For 7 days, Apply to bilateral groin and stomach panus $ Given 02/07/2023 8:00 AM EDT $ Given 02/06/2023 9:38 PM EDT $ Given 02/06/2023 9:11 AM EDT ondansetron (ZOFRAN) injection 4 mg 4 mg (0.0328 mg/kg), Intravenous, EVERY 6 HOURS NEEDED, Nausea, Vomiting, Starting on Sun01/26/23 at 1745, For 30 days, Doses 4 mg or less can be administered IV push over 3-5 minutes. Doses over 4 mg should be diluted and infused over 15 minutes. oxyCODONE (ROXICODONE) immediate release tablet 5 mg 5 mg, Oral, EVERY 4 HOURS NEEDED, Severe Pain, Unrelieved Pain, Starting on Sun01/26/23 at 1745, For 365 days, FALL RISK MEDICATION. $ Given 01/30/2023 12:58 PM EDT 5 mg $ Given 01/29/2023 6:07 PM EDT 5 mg $ Given 01/29/2023 12:10 PM EDT 5 mg perflutren lipid microsphere (DEFINITY) 10 mL injection 1.43 mg, Intravenous, CRD ONCE, On Sun01/31/23 at 1110, For 1 dose, Dilute 1.3 mL of perflutren lipid microspheres with 8.7 mL of sodium chloride and slowly administer as needed for visualization. $ Given 01/31/2023 11:10 AM EDT 2 mL polyethylene glycol (GLYCOLAX) packet 17 g 17 g (0.161 g/kg), Oral, DAILY, First dose on Sun01/28/23 at 1120, For 365 days, Use for Miralax. 17 grams = 1 packet. Mix in 8 ounces of juice or water., On hold since Sun02/05/2023 at 0725 until manually unheld $ Given 01/30/2023 8:15 AM EDT 17 g $ Given 01/29/2023 8:08 AM EDT 17 g $ Given 01/28/2023 12:27 PM EDT 17 g potassium chloride (KLOR-CON M20) CR tablet 40 mEq 40 mEq, Oral, DAILY, First dose (after last reorder) on Sun01/27/23 at 0800, For 30 days, To suspend: * Place the whole tablet [...] water, swirl, and administer immediately. $ Given 02/07/2023 7:54 AM EDT 40 mEq $ Given 02/06/2023 9:09 AM EDT 40 mEq $ Given 02/05/2023 8:42 AM EDT 40 mEq potassium chloride (KLOR-CON M20) CR tablet 40 mEq 40 mEq, Oral, EVERY 4 HOURS FREE TIMES, First dose on Sun02/05/23 at 1215, For 2 doses, Serum Potassium 3 - 3.1 and may have a combination of parenteral and enteral replacement $ Given 02/05/2023 4:27 PM EDT 40 mEq $ Given 02/05/2023 12:21 PM EDT 40 mEq psyllium (METAMUCIL) 3.4 gram packet 1 Packet 1 Packet, Oral, DAILY, First dose on Sun02/05/23 at 1115, For 365 days, Mix each dose with 240 mL of water or juice prior to administration. $ Given 02/07/2023 7:55 AM EDT 1 Packet $ Given 02/06/2023 9:08 AM EDT 1 Packet $ Given 02/05/2023 12:21 PM EDT 1 Packet senna (SENOKOT) tablet 1 Tablet 1 Tablet, Oral, EVERY EVENING, First dose (after last reorder) on Sun01/26/23 at 2100, For 365 days, 1 tablet = 8.6 mg Sennosides is equivalent to 187 mg of Senokot. $ Given 01/27/2023 8:32 PM EDT 1 Tablet $ Given 01/26/2023 9:04 PM EDT 1 Tablet senna (SENOKOT) tablet 1 Tablet 1 Tablet, Oral, EVERY EVENING, First dose (after last modification) on Sun01/31/23 at 2100, For 360 doses, 1 tablet = 8.6 mg Sennosides is equivalent to 187 mg of Senokot., On hold since Sun02/05/2023 at 0725 until manually unheld senna (SENOKOT) tablet 2 Tablet 2 Tablet, Oral, EVERY EVENING, First dose (after last modification) on Sun01/28/23 at 2100, For 363 doses, 1 tablet = 8.6 mg Sennosides is equivalent to 187 mg of Senokot. $ Given 01/29/2023 9:15 PM EDT 2 Tablets $ Given 01/28/2023 8:29 PM EDT 2 Tablets simethicone (MYLICON) chewable tablet 80 mg 80 mg, Oral, EVERY 6 HOURS NEEDED, Gas, Starting on Sun01/26/23 at 1745, For 365 days sodium chloride 0.9 % flush 3 mL 3 mL, Intravenous, EVERY 8 HOURS, First dose on Sun01/26/23 at 1750, For 30 days, Aspirate lock to ensure patency; flush with 3 ml of NaCl. If a medication is administered, flush before and after administration. $ Given 02/07/2023 8:00 AM EDT 3 mL $ Given 02/06/2023 4:32 PM EDT 3 mL $ Given 02/06/2023 9:10 AM EDT 3 mL sodium chloride 0.9 % flush 3 mL 3 mL, Intravenous, EVERY 8 HOURS, First dose (after last reorder) on Sun01/26/23 at 1750, For 30 days, Aspirate lock to ensure patency; flush with 3 ml of NaCl. If a medication is administered, flush before and after administration. $ Given 01/30/2023 5:28 PM EDT 3 mL $ Given 01/30/2023 8:20 AM EDT 3 mL $ Given 01/29/2023 3:47 PM EDT 3 mL sodium phosphates (FLEET) enema 1 Enema 1 Enema, Per Rectum, ONCE, On Sun01/29/23 at 1700, For 1 dose, Fleet's Enema (Adult) $ Given 01/29/2023 3:49 P M EDT 1 Enema spironolactone (ALDACTONE) tablet 25 mg 25 mg, Oral, DAILY, First dose (after last reorder) on Sun01/27/23 at 0800, For 365 days, Fall Risk Medication $ Given 02/07/2023 7:54 AM EDT 25 mg $ Given 02/06/2023 9:15 AM EDT 25 mg $ Given 02/05/2023 8:41 AM EDT 25 mg tiotropium bromide (SPIRIVA RESPIMAT) 2.5 mcg/actuation inhaler 2 Inhalation 2 Inhalation , Inhalation, RT DAILY, First dose on Sun01/29/23 at 1225, For 365 days, RESPIRATORY to administer. $ Given 02/07/2023 7:59 AM EDT 2 Inhalations $ Given 02/06/2023 7:53 AM EDT 2 Inhalations $ Given 02/05/2023 8:05 AM EDT 2 Inhalations torsemide (DEMADEX) tablet 60 mg 60 mg, Oral, TWICE A DAY DIURETICS, First dose (after last reorder) on Sun01/27/23 at 0600, For 30 doses $ Given 02/07/2023 5:54 AM EDT 60 mg $ Given 02/06/2023 4:32 PM EDT 60 mg $ Given 02/06/2023 5:41 AM EDT 60 mg traZODone (DESYREL) tablet 50 mg 50 mg, Oral, EVERY EVENING, First dose (after last reorder) on Sun01/26/23 at 2100, For 365 days, Fall Risk Medication $ Given 02/06/2023 9:28 PM EDT 50 mg $ Given 02/05/2023 9:24 PM EDT 50 mg $ Given 02/04/2023 8:47 PM EDT 50 mg documented in this encounter Active and Recently Administered Medications Times are shown in EDT. Scheduled Medication Order 02/05/2023 02/06/2023 02/07/2023 aspirin EC tablet 81 mg 81 mg, Oral, DAILY, First dose (after last reorder) on Sun01/27/23 at 0800, For 365 days, Do NOT open, crush, break, or chew. Give with food and a full glass of water to reduce GI upset. 0842 ($ Given - Provider: Gloria Crouch RN) 0908 ($ Given - Provider: Renae Giron, RN) 0754 ($ Given - Provider: Karuna De Oliveira, RN) clopidogreL (PLAVIX) tablet 75 mg 75 mg, Oral, DAILY, First dose (after last reorder) on 01/27/23 at 0800, For 365 days 0841 ($ Given - Provider: Gloria Crouch RN) 0909 ($ Given - Provider: Renae Giron RN) 0754 ($ Given - Provider: Karuna De Oliveira, JULIA) docusate sodium (COLACE) capsule 100 mg 100 mg, Oral, TWICE A DAY, First dose (after last modification) on Sun01/31/23 at 0800, For 721 doses, On hold since Sun02/05/2023 at 0725 until manually unheld 0725 (Held by Provider - Provider: Yann Fields DO)0800 (Automatically Held - Provider: Yann Fields DO)2100 (Automatically Held - Provider: Yann Fields DO) 0800 (Automatically Held - Provider: Yann Fields DO)2100 (Automatically Held - Provider: Yann Fields DO) 0800 (Automatically Held - Provider: Yann Fields DO)1529 (Unheld by Provider - Provider: Canceled At Discharge) enoxaparin (LOVENOX) 40 mg/0.4 mL injection 40 mg 40 mg, Subcutaneous, DAILY AT 1600, First dose (after last reorder) on 01/27/23 at 1600, For 365 days, Inject at a 90 degree angle. Do NOT expel air bubble at tip of syringe. Do NOT massage injection site. Alternate between the left and right anterolateral and left and right posterolateral abdominal wall. Document administration site. BLACK BOX WARNING: Epidural or spinal hematomas may occur in patients who are anticoagulated with LMWHs or heparinoids and are receiving neuraxial anesthesia or undergoing spinal puncture. These hematomas may result in long-term or permanent paralysis. Consider these risks when scheduling patients for spinal procedures. 1628 ($ Given - Provider: Gloria Crouch RN) 1632 ($ Given - Provider: Renae iGron, JULIA) escitalopram (LEXAPRO) tablet 20 mg 20 mg, Oral, DAILY, First dose (after last reorder) on Sat /6/23 at 0800, For 365 days, Fall Risk Medication 0842 ($ Given - Provider: Gloria Crouch RN) 0908 ($ Given - Provider: Renae Giron, RN) 0754 ($ Given - Provider: Karuna De Oliveira, RN) evolocumab (REPATHA SURECLICK) pen 140 mg 140 mg, Subcutaneous, EVERY 2 WEEKS, First dose (after last modification) on Sun01/30/23 at 1200, For 365 days, Refrigerate Patient supply (#2 single-use pens)- please send remainder with him at discharge, Therapeutic Interchange Response: Pharmacy to implement System P&T approved Therapeutic Interchange (if available) gabapentin (NEURONTIN) capsule 100 mg 100 mg, Oral, AT BEDTIME, First dose (after last reorder) on Sun01/26/23 at 2100, For 365 days, Fall Risk Medication 2124 ($ Given - Provider: Jacob Dunlap, RN) 2128 ($ Given - Provider: Fabienne Uribe RN) magnesium sulfate 4 gram/100 mL (4 %) IVPB (premix) 4 g (COMPLETED) 4 g, Intravenous, at 8.3 mL/hr, Administer over 12 Hours, ONCE, On Sun02/05/23 at 1600, For 1 dose, Recommended for Serum Magnesium LESS than 1 mg/dL 1624 ($ New Bag/Syringe - Provider: Gloria Crouch RN) 0545 (Stopped - Provider: Jacob Dunlap, RN) metoprolol succinate XL (TOPROL-XL) 24 hr tablet 25 mg 25 mg, Oral, DAILY, First dose (after last reorder) on Sun01/27/23 at 0800, For 365 days, Do NOT crush or chew. May break in half. Hold if BP <100/60 and or HR <60 0842 ($ Given - Provider: Gloria Crouch RN) 0915 ($ Given - Provider: Renae Giron, JULIA) 0754 ($ Given - Provider: Karuna De Oliveira, JULIA) nystatin (MYCOSTATIN) powder Topical, TWICE A DAY, First dose on Cindy 02/01/23 at 2100, For 7 days, Apply to bilateral groin and stomach panus 0842 ($ Given - Provider: Gloria Crouch RN)2125 ($ Given - Provider: Jacob Dunlap RN) 0911 ($ Given - Provider: Renae Giron, RN)2138 ($ Given - Provider: Fabienne Uribe, JULIA) 0800 ($ Given - Provider: Karuna De Oliveira, JULIA) polyethylene glycol (GLYCOLAX) packet 17 g 17 g (0.161 g/kg), Oral, DAILY, First dose on Sun01/28/23 at 1120, For 365 days, Use for Miralax. 17 grams = 1 packet. Mix in 8 ounces of juice or water., On hold since Sun02/05/2023 at 0725 until manually unheld 0725 (Held by Provider - Provider: Yann Fields DO)0800 (Automatically Held - Provider: Yann Fields DO) 0800 (Automatically Held - Provider: Yann Fields DO) 0800 (Automatically Held - Provider: Yann Fields DO)1530 (Unheld by Provider - Provider: Canceled At Discharge) potassium chloride (KLOR-CON M20) CR tablet 40 mEq 40 mEq, Oral, DAILY, First dose (after last reorder) on Sun01/27/23 at 0800, For 30 days, To suspend: * Place the whole tablet in approximately 120 mL of cold water or juice to reduce stomach irritation or laxative effects. * Allow approximately 2 minutes for the contents to dissolve. * Stir for about half a minute after the contents have dissolved. * Swirl the suspension and administer orally. * Add another 30 mL of water, swirl, and administer immediately. 0842 ($ Given - Provider: Gloria Crouch RN) 0909 ($ Given - Provider: Renae Giron, RN) 0754 ($ Given - Provider: Karuna De Oliveira, JULIA) potassium chloride (KLOR-CON M20) CR tablet 40 mEq (COMPLETED) 40 mEq, Oral, EVERY 4 HOURS FREE TIMES, First dose on Sun02/05/23 at 1215, For 2 doses, Serum Potassium 3 - 3.1 and may have a combination of parenteral and enteral replacement 1221 ($ Given - Provider: Gloria Crouch RN)1627 ($ Given - Provider: Gloria Crouch RN) psyllium (METAMUCIL) 3.4 gram packet 1 Packet 1 Packet, Oral, DAILY, First dose on Sun02/05/23 at 1115, For 365 days, Mix each dose with 240 mL of water or juice prior to administration. 1221 ($ Given - Provider: Gloria Crouch RN) 0908 ($ Given - Provider: Renae Giron, JULIA) 0755 ($ Given - Provider: Karuna De Oliveira, RN) senna (SENOKOT) tablet 1 Tablet 1 Tablet, Oral, EVERY EVENING, First dose (after last modification) on Sun01/31/23 at 2100, For 360 doses, 1 tablet = 8.6 mg Sennosides is equivalent to 187 mg of Senokot., On hold since Sun02/05/2023 at 0725 until manually unheld 0725 (Held by Provider - Provider: Yann Fields DO)2100 (Automatically Held - Provider: Yann Fields DO) 2100 (Automatically Held - Provider: Yann Fields DO) 1530 (Unheld by Provider - Provider: Canceled At Discharge) sodium chloride 0.9 % flush 3 mL 3 mL, Intravenous, EVERY 8 HOURS, First dose on Sun01/26/23 at 1750, For 30 days, Aspirate lock to ensure patency; flush with 3 ml of NaCl. If a medication is administered, flush before and after administration. 0000 (Not Given - Provider: Princess Glenny RN - Reason: Other (See Comment) - Comment: given at 2100,before patient sleep)0842 ($ Given - Provider: Gloria Crouch RN)1627 ($ Given - Provider: Gloria Crouch RN) 0000 (Override Completed - Provider: Jacob Dunlap RN - Comment: PIV flushed earlier in the shift with nursing assessment so patient would not have to be woken up at midnight.)0910 ($ Given - Provider: Renae Giron RN)1632 ($ Given - Provider: Renae Giron RN) 0000 (Override Completed - Provider: Jacob Dunlap RN - Comment: PIV flushed during nursing assessment earlier in the shift to avoid waking up the patient at midnight.)0800 ($ Given - Provider: Karuna De Oliveira RN) spironolactone (ALDACTONE) tablet 25 mg 25 mg, Oral, DAILY, First dose (after last reorder) on Sun01/27/23 at 0800, For 365 days, Fall Risk Medication 0841 ($ Given - Provider: Gloria Crouch RN) 0915 ($ Given - Provider: Renae Giron RN) 0754 ($ Given - Provider: Karuna De Oliveira, JULIA) tiotropium bromide (SPIRIVA RESPIMAT) 2.5 mcg/actuation inhaler 2 Inhalation(Linked Group 1) 2 Inhalation , Inhalation, RT DAILY, First dose on Sun01/29/23 at 1225, For 365 days, RESPIRATORY to administer. 0805 ($ Given - Provider: Nany Hanson RCP) 0753 ($ Given - Provider: Nany Hanson RCP) 0759 ($ Given - Provider: Karuna De Oliveira RN) torsemide (DEMADEX) tablet 60 mg 60 mg, Oral, TWICE A DAY DIURETICS, First dose (after last reorder) on Sun01/27/23 at 0600, For 30 doses 0601 ($ Given - Provider: Princess Glenny RN)1627 ($ Given - Provider: Gloria Crouch RN) 0541 ($ Given - Provider: Jacob Dunlap RN)1632 ($ Given - Provider: Renae Giron RN) 0554 ($ Given - Provider: Fabienne Uribe, JULIA) traZODone (DESYREL) tablet 50 mg 50 mg, Oral, EVERY EVENING, First dose (after last reorder) on Sun01/26/23 at 2100, For 365 days, Fall Risk Medication 2124 ($ Given - Provider: Jacob Dunlpa RN) 2128 ($ Given - Provider: Fabienne Uribe, JULIA) PRN Medication Order 02/05/2023 02/06/2023 02/07/2023 acetaminophen (TYLENOL) tablet 650 mg 650 mg, Oral, EVERY 6 HOURS NEEDED, Fever, Pain, Starting on Sun01/26/23 at 1745, For 365 days bisacodyL (DULCOLAX) suppository 10 mg 10 mg, Per Rectum, DAILY NEEDED, Constipation, Starting on Sun01/26/23 at 1745, For 365 days dextrose (DIABETIC USE) 40 % oral gel 6 g glucose 6 g glucose (15 g), Oral, NEEDED, Hypoglycemia, hypoglycemia-preferred method of treating hypoglycemia, Starting on Sun01/26/23 at 1745, For 30 days, 37.5 g of Oral Gel = 15 g of glucose. dextrose 50% in water (D50W) injection 25 mL 25 mL, Intravenous, NEEDED, Hypoglycemia, Blood glucose 55-69 mg/dL--for unresponsive, altered mental status, seizures, or NPO status, Starting on Sun01/26/23 at 1745, For 365 days dextrose 50% in water (D50W) injection 50 mL 50 mL, Intravenous, NEEDED, Hypoglycemia, Blood glucose 54 mg/dL or less--for unresponsive, altered mental status, seizures, or NPO status, Starting on Sun01/26/23 at 1745, For 365 days docusate sodium (COLACE) capsule 100 mg 100 mg, Oral, DAILY NEEDED, Constipation, Starting on Sun01/26/23 at 1745, For 365 days hydrALAZINE (APRESOLINE) tablet 25 mg 25 mg, Oral, EVERY 8 HOURS NEEDED, PRN use for SBP > 180 or DBP > 110, Starting on Sun01/26/23 at 1745, For 365 days loperamide (IMODIUM) capsule 2 mg 2 mg, Oral, FOUR TIMES A DAY NEEDED, Diarrhea, Starting on Sun02/05/23 at 1113, For 30 days, Give after each loose stool. Maximum dose is 16 mg (8 capsules in 24 hours) ondansetron (ZOFRAN) injection 4 mg 4 mg (0.0328 mg/kg), Intravenous, EVERY 6 HOURS NEEDED, Nausea, Vomiting, Starting on Sun01/26/23 at 1745, For 30 days, Doses 4 mg or less can be administered IV push over 3-5 minutes. Doses over 4 mg should be diluted and infused over 15 minutes. ondansetron ODT (ZOFRAN-ODT) dispersible tablet 4 mg 4 mg, Oral, EVERY 8 HOURS NEEDED, Nausea, Vomiting, Starting on Sun01/26/23 at 1745, For 365 days, Orally disintegrating. oxyCODONE (ROXICODONE) immediate release tablet 5 mg 5 mg, Oral, EVERY 4 HOURS NEEDED, Severe Pain, Unrelieved Pain, Starting on Sun01/26/23 at 1745, For 365 days, FALL RISK MEDICATION. simethicone (MYLICON) chewable tablet 80 mg 80 mg, Oral, EVERY 6 HOURS NEEDED, Gas, Starting on Sun01/26/23 at 1745, For 365 days Linked Groups Order Group 1: tiotropium bromide (SPIRIVA RESPIMAT) 2.5 mcg/actuation inhaler 2 InhalationJump to med 2 Inhalation , Inhalation, RT DAILY, First dose on Sun01/29/23 at 1225, For 365 days, RESPIRATORY to administer. And Administration, Evaluation and Education of MDI or DPI by Respiratory Therapy as Ordered (COMPLETED) ORDERED - RT ONLY, Starting on Sun01/29/23 at 1222, Until Specified, Routine documented in this encounter Additional Health Concerns Assessment Noted Time PHQ-9 Depression Total Score: 1 02/08/20 10:56 AM EDT documented as of this encounter Care Teams Associate Art Director Relationship Specialty [place] [address] [place] [id number] PCP - General Cardiology 12/29/22 Nela Trejo [address] [place] [address] 01/02/23 documented as of this encounter Additional [...] prosecute any alcohol or drug abuse [email or web address] Plays.[place] [email or web address] (a.k.a. [place] [facility])
--- OUTSIDE RECORDS SUMMARY | 2024-09-23 14:16 | XMS_ITS | Encounter Summary ---
Author Organization [facility] (a.k.a. [facility]) Address [address] [place] [address] Care Team Providers Care Credit Analysis Manager Name Role Phone Williams Yip MD Primary Care Provider [phone] Nela Trejo Unavailable Unavailable Reason for Visit * Inpatient Auth/Cert (Routine) Specialty Diagnoses / Procedures Referred By Contac t Referred To Contact Diagnoses AMS (altered mental status) CVA, altered mental status Referral ID Status Reason Start Date Expiration Date Visits Re quested Visits Authorized [id number] 1 1 Encounter Details Date Type Department Care Team (Late st Contact Info) Description 01/21/2023 1:13 PM EDT - 01/26/2023 4:57 PM EDT Hospital Encounter [facility] - Medicine [address] [facility] [address] [place] [phone] Surekha Silver MD [address] [facility] Hospitalist [facility], [address] [place] [phone] Lauren Mcghee MD [address] [facility] Hospitalist [facility], [address] [place] [phone] Karuna Head MD [address] [facility] Hospitalist [place] [phone] Somnolence; Altered mental status, unspecified altered mental status type Discharge Disposition: Discharged/transd to another rehab facility incl rehab distinct part o* Social History Tobacco Use Types Packs/Day Years Used Date Smoking Tobacco: Former Cigarettes Smokeless Tobacco: Never PHQ-2 Answer Date Recorded PHQ Total Score 0 01/27/2023 PRAPARE - Transportation Answer Date Re corded In the past 12 months, has l ack of transportation kept you from medical appointments or from getting medications? No 02/2023 In the past 12 months, has l ack of transportation kept you from meetings, work, or from getting things needed for daily living? No 01/27/2023 Sex and Gender Information Value Date Recorded Sex Assigned at Not on file Gender Identity Not on file Sexual Orientation Not on file documented as of this encounter Last Filed Vital Signs Vital Sign Reading Time Taken Comments Blood Pressure 98/51 01/26/2023 3:49 PM EDT Pulse 76 01/26/2023 3:49 PM EDT Temperature 36.1 ??C (97 ??F) 01/26/2023 3:49 PM EDT Respiratory Rate 20 01/26/2023 3:49 PM EDT Oxygen Saturation 97% 01/26/2023 3:49 PM EDT Inhaled Oxygen Concentration - - Weight 105.6 kg (232 lb 12.9 oz) 01/26/2023 4:59 AM EDT Height 175.3 cm (5' 9.02) 01/23/2023 3:00 AM ED T Body Mass Index 34.36 01/25/2023 11:00 AM EDT documented in this encounter Functional Status Functional Status Response Date of Assess ment Are you deaf or do you have serious difficulty h earing? Yes 01/22/2023 Are you blind or do you have serious difficulty seeing, even when wearing glasses? No 01/22/2023 Do you have serious difficul ty walking or climbing stairs? (5 years old or older) No 01/22/2023 Do you have difficulty dress ing or bathing? (5 years old or older) No 01/22/2023 Because of a physical, menta l, or emotional condition, do you have difficulty doing errands alone such as visiting a doctor's office or shopping? (15 years old or older) No 01/22/2023 Cognitive Status Response Date of Assessm ent Because of a physical, menta l, or emotional condition, do you have serious difficulty concentrating, remembering, or making decisions? (5 years old or older) No 01/22/2023 documented as of this encounter Discharge Summaries * Chayito Sultana RN - 01/26/2023 4:43 PM EDT Patient discharge to [facility] for IPR. Reprt called to Lucie mauricio in place per requested. Medications reviewed with patient and . All belongings and patient home Cpap send with patient. Patient left with transport, present. * Karuna Head MD - 01/26/2023 12:38 PM EDT Images from the original note were not included. [facility] Hospitalist Discharge Summary Patient: Raghu Rosenthal Date of : 1945 PCP: Williams Yip MD Date of Admission: 01/21/2023 Date of Discharge: 01/26/2023 Disposition: Transfer to IPR Admit Diagnosis: AMS (altered mental status) Past Medical History: Diagnosis Date Acid reflux Coronary artery disease COVID Diabetes ([facility]) Diverticulitis Diverticulitis Hyperlipidemia Hypertension NSTEMI (non-ST elevated myocardial infarction) (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) Left cerebellar Subarachnoid hemorrhage ([facility]) Subdural hematoma ([facility]) Consults: CONSULT - PHYSICAL MEDICINE/REHAB - [facility] - INPATIENT REHAB CONSULT - PHYSICAL MEDICINE/REHAB - [facility] - INPATIENT REHAB Procedures: EEG Summary of Hospital Course: Raghu Rosenthal, 77yrs old, Male with history significant for CAD s/p CABG x2, hypertension, hyperlipidemia, TAVR 01/[address] Shannon Davison, HFrEF who was transferred from inpatient rehab to the hospital for altered mental status. Was evaluated on medical floor; most likely hospital delirium. Stable, NAD.Delirium resolved completely +++AMS (altered mental status) OLIVIER CHF Depression and anxiety COPD CAD Oropharyngeal dysphagia MS changes resolved; most likely hospital delirium AAOx3 Repeated PT/OT evaluation for IPR and was re-accepted to Rehab Limit sedatives Re-started Trazodone; Oxycodone and Neurontin CPAP overnight; spiriva For HCF on diuretics; monitor I@O; weights Continue Lexapro for hx of depression and anxiety Cleared for regular diet by speech FULL CODE Will be transferred back to [facility] All questions answered Physical Exam on Day of Discharge: BP 116/62 Pulse 75 Temp 36.4 ??C (97.6 ??F) Resp 20 Ht 1.753 m Wt 105.6 kg SpO2 98% BMI 34.36 kg/m?? Constitutional: Alert; in no acute distress. HEENT: Normal cephalic, Atraumatic. Normal nasal and oral mucosa. Cardiovascular: RRR. No murmurs, clicks, gallops, rubs, JVD, carotid bruit, chest wall tenderness, peripheral edema Respiratory: Lungs clear to auscultation bilaterally, no accessory muscle use, no subcutaneous emphysema GI: Abdomen soft, non-tender. BS normal. no masses, no organomegaly, no abdominal bruit Labs In Last 24 Hrs: Results for orders placed or performed during the hospital encounter of 01/21/23 (from the past 24 hour(s)) GLUCOSE, GLUCOMETER Collection Time: 01/25/23 5:08 PM Test Value Low-High Glucose 110 (H) 70 - 100 mg/dL GLUCOSE, GLUCOMETER Collection Time: 01/25/23 9:00 PM Test Value Low-High Glucose 94 70 - 100 mg/dL BASIC METABOLIC PANEL Collection Time: 01/26/23 4:56 AM Test Value Low-High BUN 55 (H) 8 - 26 mg/dL Sodium 133 (L) 136 - 145 mEq/L Potassium 3.8 3.5 - 5.1 mEq/L Chloride 100 98 - 107 mEq/L CO2 24 23 - 31 mEq/L Anion Gap 9 4 - 12 mEq/L Glucose 88 70 - 105 mg/dL Creatinine 2.01 (H) 0.72 - 1.25 mg/dL Glomerular Filtration Rate 34 (L) >=59 mL/Min/1.73 m2 Calcium 8.3 (L) 8.4 - 10.2 mg/dL Osmo (Calc'd) 292 mOsm/kg Bun:Creat Ratio 27.36 GLUCOSE, GLUCOMETER Collection Time: 01/26/23 7:45 AM Test Value Low-High Glucose 97 70 - 100 mg/dL COVID-19 STAT Collection Time: 01/26/23 10:21 AM Specimen: Nasopharynx; Swab Test Value Low-High PDUA-Vclzdsvgflq-2 PCR Negative Negative Narrative Negative results do not preclude COVID-19 infection and should not be used as the sole basis for diagnosis, treatment or other patient management decisions. Improper nasopharyngeal specimen collection may lead to a false-negative result. The Xpert Xpress SARS-CoV-2 test is a rapid, real-time RT-PCR test intended for the qualitative detection of nucleic acid from SARS-CoV-2. This test has not been FDA cleared or approved; it has been authorized by FDA under an EUA for use by authorized laboratories. Test authorization is only for the detection of nucleic acid from SARS-CoV-2, not for any other viruses or pathogens. GLUCOSE, GLUCOMETER Collection Time: 01/26/23 11:42 AM Test Value Low-High Glucose 125 (H) 70 - 100 mg/dL Radiology Tests : Results for orders placed or performed during the hospital encounter of 01/21/23 (from the past 72 hour(s)) ECHO Collection Time: 01/23/23 2:16 PM Test Value Low-High EC IVSd 1.2 cm EC LVIDd 5.7 cm EC LVIDs 4.7 cm EC LVPWd 1 cm EC IVS/LVPW 1.2 EC FS 17.8 % EC EDV(Teich) 159.1 ml EC ESV(Teich) 101.1 ml EC EF(Teich) 36.4 % EC EF (est.) 28.3 % EC EDV(cubed) 183.7 ml EC ESV(cubed) 102.2 ml EC EF(cubed) 44.4 % EC LV mass(C)d 255.4 grams EC LV mass(C)dI 109.5 grams/m\S\2 EC SV(Teich) 58 ml EC SI(Teich) 24.9 ml/m\S\2 EC SV(cubed) 81.5 ml EC SI(cubed) 35 ml/m\S\2 EC LVLd ap4 9 cm EC EDV(MOD-sp4) 135 ml EC LVLs ap4 9.5 cm EC ESV(MOD-sp4) 97.7 ml EC EF(MOD-sp4) 27.6 % EC LVLd ap2 9.3 cm EC EDV(MOD-sp2) 150 ml EC LVLs ap2 8.9 cm EC ESV(MOD-sp2) 105 ml EC EF(MOD-sp2) 30 % EC SV(MOD-sp4) 37.3 ml EC SI(MOD-sp4) 16 ml/m\S\2 EC SV(MOD-sp2) 45 ml EC SI(MOD-sp2) 19.3 ml/m\S\2 EC Ao V2 max 200.4 cm/sec EC Ao max PG 16.2 mmHg EC Ao max PG (full) 11.2 mmHg EC Ao V2 mean 123.5 cm/sec EC Ao mean PG 7.6 mmHg EC Ao V2 VTI 29.1 cm EC LVOTmaxgradient 5 mmHg EC LVOTmaxvel 111.4 cm/sec Narrative Reason for Exam: Limited for LVF/AV Dx Date of Service: 01/23/2023 Patient Height 175.0 cm Patient Weight 121.0 kg Systolic Pressure 137 mmHg Diastolic Pressure 66 mmHg Study Location ECH BSA 2.3 m^2 Procedure: A two-dimensional transthoracic echocardiogram with color flow and Doppler was performed in limited views only. Study Quality: Fair. A contrast injection of Definity was performed to improve assessment of LV function. Left Ventricle: The left ventricle is mildly dilated. LVEDD 5.7 cm. IVSD 1.2 cm (mildly increased). Normal posterior wall thickness. Ejection Fraction = 35-40%. Abnormal (paradoxical) septal motion consistent with LBBB. There is moderate global hypokinesis of the left ventricle. There is no thrombus. Right Ventricle: There is a pacemaker lead in the right ventricle. The right ventricle is normal in size and function. Aortic Valve: The peak aortic valve velocity 225 cm/s. Aortic mean pressure gradient= 9 mmHg. No paravalvular or transvalvular regurgitation. S/p [id number] TAVR with 26 mm Evolut FX (within 25 mm Magna, post dilated with 23 mm True balloon) on 01/08/23. Well-seated, normally functioning aortic prosthesis. Mitral Valve: There is mild mitral regurgitation. Pulmonic Valve: The Pulmonic Valve is partially seen. Trace pulmonic valvular regurgitation. MMode 2D Measurements & Calculations IVSd - 1.2 cm LVIDd - 5.7 cm LVIDs - 4.7 cm LVPWd - 1 cm IVS/LVPW - 1.2 FS - 17.8 % EDV(Teich) - 159.1 ml ESV(Teich) - 101.1 ml EF(Teich) - 36.4 % EF (est.) - 28.3 % EDV(cubed) - 183.7 ml ESV(cubed) - 102.2 ml EF(cubed) - 44.4 % LV mass(C)d - 255.4 grams LV mass(C)dI - 109.5 grams/m^2 SV(Teich) - 58 ml SI(Teich) - 24.9 ml/m^2 SV(cubed) - 81.5 ml SI(cubed) - 35 ml/m^2 LVLd ap4 - 9 cm EDV(MOD-sp4) - 135 ml LVLs ap4 - 9.5 cm ESV(MOD-sp4) - 97.7 ml EF(MOD-sp4) - 27.6 % LVLd ap2 - 9.3 cm EDV(MOD-sp2) - 150 ml LVLs ap2 - 8.9 cm ESV(MOD-sp2) - 105 ml EF(MOD-sp2) - 30 % SV(MOD-sp4) - 37.3 ml SI(MOD-sp4) - 16 ml/m^2 SV(MOD-sp2) - 45 ml SI(MOD-sp2) - 19.3 ml/m^2 Doppler Measurements & Calculations Ao V2 max - 200.4 cm/sec Ao max PG - 16.2 mmHg Ao max PG (full) - 11.2 mmHg Ao V2 mean - 123.5 cm/sec Ao mean PG - 7.6 mmHg Ao V2 VTI - 29.1 cm LVOT max gradient - 5 mmHg LVOT max bee - 111.4 cm/sec Conclusion Limited echocardiogram for valvular function. S/p [id number] TAVR with 26 mm Evolut FX (within 25 mm Magna, post dilated with 23 mm True balloon) on 01/08/23. Well-seated, normally functioning aortic prosthesis. No paravalvular or transvalvular regurgitation. Ejection Fraction = 35-40%. The left ventricle is mildly dilated (LVEDD 5.7 cm). InterpretingPhysician:Interpreting Physician: Timothy Monroe, electronically signed on 2023-01-24 15:20:53.163 Discharge Condition: good Discharge Activity: As Tolerated Discharge Diet: Diet Orders (From admission, onward) Ordered Room Service Assistance Needed CONTINUOUS Question: Patient physically capable of ordering room service? Answer: Yes with Dietary Assistance 01/22/23 6168 Nutrition Therapy Diet Effective Now Question: Nutrition Therapy: Answer: Regular/House 01/22/23 1303 Discharge Diagnosis: Patient Active Problem List Diagnosis Date Noted AMS (altered mental status) 01/21/2023 CKD (chronic kidney disease) stage 3, GFR 30-59 ml/min ([facility]) 01/09/2023 01/08/23 TransCatheter Aortic Valve Replacement (Olzcs-na-Wxubz, 26 Medtronic Evolut Pro, via the Left Transfemoral Approach) EF 35% 01/08/2023 Personal history of transient ischemic attack (TIA), and cerebral infarction without residual deficits 01/07/2023 Vitreous degeneration, right eye 12/29/2022 Thrombocytopenia, unspecified ([facility]) 12/29/2022 Sensorineural hearing loss, bilateral 12/29/2022 Psoriasis with arthropathy ([facility]) 12/29/2022 Arthropathic psoriasis, unspecified ([facility]) 12/29/2022 Posttraumatic stress disorder 12/29/2022 Postsurgical aortocoronary bypass status 12/29/2022 Patient under care of multiple providers 12/29/2022 Apr 21, 2015 Entered By: MARY ELMORE Comment: Dr. Hernandez PCP [phone] 2014 Entered By: MARY ELMORE Comment: Dr. Singh rheum - [phone] 2014 Entered By: NICK ELMORE Comment: Dr. Barragan - ortho [facility] 2014 Entered By: MARY ELMORE Comment: Dr. Miranda -cardio - [facility] 2014 Entered By: MARY ELMORE Comment: Dr. Sanchez pul [phone] 2014 Entered By: MARY ELMORE Comment: [facility] [phone] Palpitations 12/29/2022 Other ill-defined and unknown causes of morbidity and mortality 12/29/2022 Pain in right shoulder 12/29/2022 Obesity 12/29/2022 Obstructive sleep apnea syndrome in adult 12/29/2022 Mitral and aortic valve disease 12/29/2022 Mild intermittent asthma 12/29/2022 Encounter for other procedures for purposes other than remedying health state 12/29/2022 Encounter for immunization 12/29/2022 Depressive disorder 12/29/2022 Encounter for screening for eye and ear disorders 12/29/2022 Contact dermatitis and other eczema 12/29/2022 Chronic rhinitis 12/29/2022 Hypertension 12/28/2022 Hyperlipidemia 12/28/2022 Coronary artery disease 12/28/2022 Diabetes mellitus ([facility]) 05/22/2019 Last Assessment & Plan: A relatively new diagnosis for him. On metformin. A1c's reportedly <7%. Osteoarthritis of both knees 10/08/2018 Bradycardia 02/21/2018 Last Assessment & Plan: Asymptomatic. Not on bblocker. Continue to monitor. Nonrheumatic aortic (valve) stenosis 08/19/2013 Aortic valve area 1.1 cm??; s/p AVR in 2012 Last Assessment & Plan: S/p tissue AVR. Doing well. Continue with antibiotic prophylaxis prior to dental work. Will get repeat echocardiogram at next visit. Subarachnoid hemorrhage ([facility]) 04/22/2012 2006 Sleep apnea 04/22/2012 Last Assessment & Plan: Continues with the OLIVIER mask. S/P prosthetic total arthroplasty of the hip 04/22/2012 Pancreatitis 04/22/2012 11/05 Possible gallstone pancreatitis. GERD (gastroesophageal reflux disease) 04/22/2012 Former smoker 04/22/2012 Fatty liver 04/22/2012 Diverticulitis 04/22/2012 2004, 2005 S/p surgery Cholelithiasis 04/22/2012 USG 2/ Abdominal panniculus 04/22/2012 S/p panniculectomy Psoriasis 05/05/2011 Cerebellar stroke syndrome 01/22/2011 Discharge Medications: Medication List CONTINUE taking these medications Instructions aspirin 81 mg Tbec Take 1 Tablet by mouth daily. clopidogreL 75 mg Tab Commonly known as: PLAVIX Take 1 Tablet by mouth daily for 60 days. EPINEPHrine 0.3 mg/0.3 mL (1:1,000) Atin Commonly known as: EPIPEN Give 0.3 mL intramuscular. escitalopram 20 mg Tab Commonly known as: LEXAPRO Take 1 Tablet by mouth daily. evolocumab 140 mg/mL Pnij Commonly known as: REPATHA SURECLICK Give 140 mg subcutaneous every 2 weeks for 98 days. ferrous sulfate 325 mg (65 mg iron) Tbec Take 1 Tablet by mouth every 48 hours. gabapentin 100 mg Cap Commonly known as: NEURONTIN Take 1 Capsule by mouth at bedtime. hydrALAZINE 10 mg Tab Commonly known as: APRESOLINE Take 1 Tablet by mouth every 4 hours as needed. melatonin 5 mg Tab Take 1 Tablet by mouth at bedtime. metoprolol succinate XL 25 mg Tb24 Commonly known as: TOPROL-XL Take 1 Tablet by mouth daily. polyethylene glycol 17 gram Pwpk Commonly known as: GLYCOLAX Take 1 Packet by mouth daily as needed for Constipation. potassium chloride 20 mEq Tbtq Commonly known as: KLOR-CON M20 Take 2 Tablets by mouth daily. QUEtiapine 50 mg Tab Commonly known as: SEROquel Take 1 Tablet by mouth every 8 hours as needed. sodium chloride 0.9 % Syrg syringe 3 mL by Intravenous route every 8 hours. spironolactone 25 mg Tab Commonly known as: ALDACTONE Take 1 Tablet by mouth daily. tiotropium bromide 2.5 mcg/actuation Mist Commonly known as: SPIRIVA RESPIMAT INHALE 2 PUFFS BY MOUTH EVERY DAY FOR BREATHING torsemide 60 mg Tab Take 60 mg by mouth twice a day. traZODone 50 mg Tab Commonly known as: DESYREL Take 1 Tablet by mouth every evening. Discharge Followup: As noted below. Discharge Procedure Orders Regular Diet Scheduling Instructions: Use to maintain or restore the nutrition of all patients who require little or no dietary restrictions. Provides a minimum of 1700 calories a day. Salt packets provided on trays. Sodium content provided by the salt packets is not included in the menu analysis. No Activity Restrictions Time spent on D/C home 50 min with >50% of time spent in cachil dehe and coordination of care. Karuna Head MD 01/26/2023 documented in this encounter Discharge Instructions * Discharge Instructions* Shira Gonzalez, [facility] - 01/25/2023 9:52 AM EDT [facility] DISCHARGE INSTRUCTIONS During this visit, you have either received a Pacemaker or an ICD (Implantable Cardioverter Defibrillator) to assist your heart in maintaining a normal heart rate/rhythm. Below is how to take care ofyour surgical site and what to expect following your procedure. ACTIVITY No heavy lifting (>10lbs), pushing, or pulling until insertion site is healed for 4-6 weeks. Do not raise your arm above shoulder level or stretch for 4-6 weeks. No driving until two-week site check appointment. WOUND CARE OK to shower but do not soak surgical site in water for 3 days. Leave dressing in place for 24 hours. DO NOT put creams or ointments on surgical site. You can expect swelling, tenderness, and discomfort at site. CALL if you experience increased bleeding that does not stop, uncontrolled pain, signs of infection: fever >100.5, drainage, redness, rash. You will receive an appointment for a two-week site check and a three-month device check prior to discharge. WHAT TO EXPECT THE FIRST TWO WEEKS AFTER PROCEDURE AND AT SITE CHECK The first two weeks after your device implantation will consist of healing. It is important to notify us of any issues or concerns you may have about your surgical site or device. At your two-week site check appointment, your surgical site will be assessed to ensure proper healing and no signs of infection. You MAY OR MAY NOT receive remote monitoring upon discharge based on the type of device you received. You will be enrolled with remote monitoring at your two- week site check. WHAT TO EXPECT THE FIRST THREE MONTHS AND AT YOUR DEVICE CHECK APPOINTMENT You will be enrolled in remote monitoring allowing us to monitor your device and any issues. At your appointment, you will see a cardiac device specialist. We will connect you to our senior analyst programmer and assess your device to ensure it is working appropriately and safely. Feel free to contact us at the [facility] with any questions or concerns. [facility] at [facility]: [address] [place] [address] Trevor Johnson RN documented in this encounter Medications at Time [...] mouth every evening. 30 Tablet 3 02/07/2023 amLODIPine (NORVASC) 10 mg Oral Tablet Take 1 Tablet by mouth daily. 02/07/2023 chlorhexidine (Peridex) 0.12 % Mucous Membrane Mouthwash 15 mL by Swish & Spit route twice a day. 02/07/2023 clopidogreL (PLAVIX) 75 mg Oral Tablet Take 1 Tablet by mouth daily for 60 days. 30 Tablet 1 01/19/2023 01/30/2023 EPINEPHrine (EPIPEN) 0.3 mg/0.3 mL (1:1,000) Injection Auto-Injector Give 0.3 mL intramuscular. 01/30/2023 evolocumab (REPATHA SURECLICK) 140 mg/mL Subcutaneous Pen Injector Give 140 mg subcutaneous every 2 weeks for 90 days. 2 mL 2 02/13/2023 05/14/2023 evolocumab (REPATHA SURECLICK) 140 mg/mL Subcutaneous Pen [...] as needed. 90 Tablet 3 01/21/2023 01/30/2023 hydroCHLOROthiazide (HYDRODIURIL) 25 mg Oral Tablet Take 1 Tablet by mouth daily. 02/07/2023 losartan (COZAAR) 100 mg Oral Tablet Take 1 Tablet by mouth daily. 02/07/2023 magnesium oxide (MAG-OX) 400 mg Oral Tablet Take 1 Tablet by mouth daily. 02/07/2023 melatonin 5 mg Oral Tablet Take 1 [...] as needed. 60 Tablet 3 01/21/2023 01/30/2023 rosuvastatin (CRESTOR) 20 mg Oral Tablet Take 1 Tablet by mouth at bedtime. 02/07/2023 sodium chloride 0.9 % Injection Syringe syringe 3 mL by Intravenous route every 8 hours. 0 01/21/2023 01/30/2023 torsemide 60 mg Oral Tablet Take 60 mg by mouth twice a day. 120 Tablet 3 01/19/2023 01/30/2023 traZODone (DESYREL) 50 mg Oral Tablet Take 1 Tablet by mouth every evening. 30 Tablet 3 01/21/2023 01/30/2023 documented as of this encounter Progress Notes * Tran Skaggs OTR/Jessica - 01/26/2023 4:01 PM EDT Patient was discharged from the acute hospital prior to meeting acute Occupational Therapy goals; therefore discharge note not completed. If needed, please refer to recommendations made by evaluatingtherapist in the Acute OT evaluation under the Initial Evaluation tab on EHR or in the OT Acute Grid flowsheet, and see last OT progress note for most recent functional status. JACK Dsouza/Jessica Available via [employer] * JULIA JONES - 01/26/2023 12:36 PM EDT Met with patient and his at bedside. Aware and in agreement of discharge plan to [facility]. No questions regarding transfer. Covid test pending. No further CM needs anticipated. Julia Jonse, MSN, RN Inpatient [email or web address] For Case Management assistance Sunday through Sunday, Weekends or Holidays after 5:00 pm, please page [phone] pager [phone]. ED Case Management is also available for assistance after 5:00 pm, please call [phone]. * Kanika Dang PT - 01/26/2023 9:10 AM EDT Raghu Rosenthal was discharged from the acute hospital prior to meeting acute Physical Therapy goals;therefore discharge summary not completed. If needed, please refer to recommendations made by evaluating therapist in EHR in the Acute PT evaluation under the Initial Evaluation tab or in the PIT PT Acute flowsheet, and see last PT note for most recent functional status. Kanika Dang, PT, DPT * Priscilla Cruz RN - 01/26/2023 7:24 AM EDT Alert and oriented. Pain management. Labs collected. Medication administered per NOV. Due care rendered. * Sejal Starr RN - 01/25/2023 6:14 PM EDT End of Shift Summary Pertinent Events This Shift: No acute concerns. PT/OT. Roxicodone x1. Nursing Concerns: none Patient/Family Concerns: pain Barriers Toward Goals/Discharge: per MD; SNF insurance authorization. Mental Status: A/O x4 Pain Control: roxicodone Mobility: independent * Karuna Head MD - 01/25/2023 4:22 PM EDT Images from the original note were not included. PROGRESS NOTE Hospitalist Medical Service Karuna Head MD After hours (7pm) Physician assistance: Dial [phone] Dr.Maria Head [phone] Raghu Rosenthal, 77yrs old, Male with history significant for CAD s/p CABG x2, hypertension, hyperlipidemia, TAVR 01/[address] Shannon Davison, HFrEF who was transferred from inpatient rehab to the hospital for altered mental status. Was evaluated on medical floor; most likely hospital delirium. Stable, NAD.Delirium resolved completely. Overnight no new events Seen in the room, sitting in the chair and feels much better with re-starting his pain regimen by the bedside Review of Systems:all systems asked, negative ex above Allergies: Hydrocodone-acetaminophen, Venom-honey bee, Morphine sulfate, Amoxicillin, Atorvastatin,Clarithromycin, Clavulanic acid, Hydrocodone, Indomethacin, Lansoprazole, Leflunomide, Pravachol [pravastatin], Tetracycline, and Unclassified drug All labs, Xrays reviewed by me personally. Intake/Output Summary (Last 24 hours) at 01/25/2023 1622 Last data filed at 01/25/2023 1200 Gross per 24 hour Intake 240 ml Output 200 ml Net 40 ml FSBS: No data found. Recent Labs 01/25/23 1215 01/25/23 0811 01/24/23 2117 01/24/23 1634 GLUCOSE POCT 129* 123* 113* 108* Physical Exam: BP 109/67 Pulse 87 Temp 36.9 ??C (98.4 ??F) Resp 18 Ht 1.753 m Wt 121.8 kg SpO2 95% BMI 39.64 kg/m?? Eyes:PERRLA; HENT: oropharynx clear and moist General - NAD Neck - supple; no JVDs CV - S1S2 RR no murmurs Resp - CTABL, no wheezing or rales GI - soft abdomen, present BS, no organomegaly Extrem - warm; present pulses Skin - dry; no rashes; intact on gross anterior examination Lymph: no LE edema, lymphadenopathy Neuro: - CN II-XII grossly intact H/O: negative for bleeding, bruising Assessment and Plan: Patient Active Hospital Problem List: AMS (altered mental status) OLIVIER CHF Depression and anxiety COPD CAD Oropharyngeal dysphagia MS changes resolved; most likely hospital delirium AAOx3 Repeated PT/OT evaluation for IPR Limited sedatives Re-started Trazodone; Oxycodone and Neurontin Monitor closely CPAP overnight; spiriva For HCF on diuretics; monitor I@O; weights Monitor H@H Continue Lexapro for hx of depression and anxiety Cleared for regular diet by speech FULL CODE POC discussed with pt and by the bedside; all questions answered Awaiting return to [facility] Anticipated date of discharge: TBD I reviewed previous records and results; I had a face to face discussion with the patient reviewing clinical and diagnostic test findings and developing an action care plan, with over 50% of that time in counseling and coordination of care.The patient understands and agrees with this plan of care Karuna Head MD * Shira Gonzalez AGNP - 01/25/2023 9:30 AM EDT Images from the original note were not included. 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 -Dressing removed from surgical site. Steri-strips intact. No signs or symptoms of infection including fevers and chills. No drainage. Minimal swelling around incision site. No pain or soreness. -Reviewed discharge information with patient, , and PT. -Will have [employer] rep come by and discuss home monitoring and give equipment. -Please reach out to EP with any questions or concerns. Will see patient at 3 month device check. JOYCE Christopher- Cardiac Electrophysiology [facility] [place] [facility] * Priscilla Cruz RN - 01/25/2023 7:08 AM EDT Alert and oriented. Pain management with oxycodone. Medications administered per NOV. No acute event. Due care rendered * Sejal Starr RN - 01/24/2023 5:13 PM EDT End of Shift Summary Pertinent Events This Shift: No acute concerns. 500mL NS bolus. Roxicodone x1. Tylenol x1. Nursing Concerns: none Patient/Family Concerns: pain Barriers Toward Goals/Discharge: per MD Mental Status: A/O x4 Pain Control: roxicodone, tylenol Mobility: independent * Karuna Head MD - 01/24/2023 4:26 PM EDT Images from the original note were not included. PROGRESS NOTE Hospitalist Medical Service Karuna Head MD After hours (7pm) Physician assistance: Dial [phone] Dr.Maria Head [phone] Raghu Rosenthal, 77yrs old, Male with history significant for CAD s/p CABG x2, hypertension, hyperlipidemia, TAVR 01/[address] Shannon Davison, HFrEF who was transferred from inpatient rehab to the hospital for altered mental status. Was evaluated on medical floor; most likely hospital delirium. Stable, NAD Overnight no new events Seen in the room, sitting in the chair and co on back pain (chronic). by the bedside Review of Systems:all systems asked, negative ex above Allergies: Hydrocodone-acetaminophen, Venom-honey bee, Morphine sulfate, Amoxicillin, Atorvastatin,Clarithromycin, Clavulanic acid, Hydrocodone, Indomethacin, Lansoprazole, Leflunomide, Pravachol [pravastatin], Tetracycline, and Unclassified drug All labs, Xrays reviewed by me personally. Intake/Output Summary (Last 24 hours) at 01/24/2023 1626 Last data filed at 01/24/2023 1419 Gross per 24 hour Intake 360 ml Output -- Net 360 ml FSBS: Patient Vitals for the past 24 hrs: FSBG Value (manual entry) 01/24/23 1234 186 01/23/23 1715 111 Recent Labs 01/24/23 1233 01/24/23 0723 01/23/23 2057 01/23/23 1648 GLUCOSE POCT 186* 124* 101* 111* Physical Exam: BP 102/63 Pulse 82 Temp 36.4 ??C (97.5 ??F) Resp 18 Ht 1.753 m Wt 121.8 kg SpO2 96% BMI 39.64 kg/m?? Eyes:PERRLA; HENT: oropharynx clear and moist General - NAD Neck - supple; no JVDs CV - S1S2 RR no murmurs Resp - CTABL, no wheezing or rales GI - soft abdomen, present BS, no organomegaly Extrem - warm; present pulses Skin - dry; no rashes; intact on gross anterior examination Lymph: no LE edema, lymphadenopathy Neuro: - CN II-XII grossly intact H/O: negative for bleeding, bruising Assessment and Plan: Patient Active Hospital Problem List: AMS (altered mental status) OLIVIER CHF Depression and anxiety COPD CAD Oropharyngeal dysphagia MS changes resolved AAOx3 Repeated PT/OT evaluation for IPR Limited sedatives Re-started Trazodone; Oxycodone and Neurontin Monitor closely CPAP overnight; spiriva For HCF on diuretics; monitor I@O; weights Monitor H@H Continue Lexapro for hx of depression and anxiety Cleared for regular diet by speech Full code POC discussed with pt and by the bedside; all questions answered Anticipated date of discharge: TBD I reviewed previous records and results; I had a face to face discussion with the patient reviewing clinical and diagnostic test findings and developing an action care plan, with over 50% of that time in counseling and coordination of care.The patient understands and agrees with this plan of care Karuna Head MD * Skylar Hernandez RN - 01/24/2023 6:04 AM EDT End of Shift Summary Pertinent Events This Shift: No acute events this shift, Medication administered per MAR. Blood collected labeled at bedside then sent to the lab. Safety and skin protection measures maintained. Purposeful rounds complete to ensure needs are met. Nursing Concerns: Infection prevention, fall prevention and protection of skin integrity Patient/Family Concerns: Pending transfer back to [facility] Barriers Toward Goals/Discharge: Pending transfer back to [facility] Mental Status: A/O X 4 Pain Control: Medicated per MAR Mobility: Pt ambulated around room independently Problem: Adult Inpatient Plan of Care Goal: Plan of Care Review Outcome: Ongoing, Progressing Flowsheets (Taken 01/24/2023 0603) Plan of Care Reviewed With: patient Goal: Patient-Specific Goal (Individualized) Outcome: Ongoing, Progressing Goal: Absence of Hospital-Acquired Illness or Injury Outcome: Ongoing, Progressing Intervention: Identify and Manage Fall Risk Flowsheets (Taken 01/24/2023602) Safety Promotion/Fall Prevention: activity supervised fall prevention program maintained clutter-free environment maintained muscle strengthening facilitated nonskid shoes/slippers when out of bed lighting adjusted safety round/check completed Intervention: Prevent Skin Injury Flowsheets (Taken 01/24/2023602) Body Position: position changed independently Intervention: Prevent and Manage VTE (Venous Thromboembolism) Risk Flowsheets (Taken 01/24/2023602) Activity Management: activity adjusted per tolerance Goal: Optimal Comfort and Wellbeing Outcome: Ongoing, Progressing Intervention: Monitor Pain and Promote Comfort Flowsheets (Taken 01/24/2023602) Pain Management Interventions: care clustered Intervention: Provide Person-Centered Care Flowsheets (Taken 01/24/2023602) Trust Relationship/Rapport: care explained Goal: Readiness for Transition of Care Outcome: Ongoing, Progressing Problem: Fall Injury Risk Goal: Absence of Fall and Fall-Related Injury Outcome: Ongoing, Progressing Intervention: Identify and Manage Contributors Flowsheets (Taken 01/24/2023602) Self-Care Promotion: independence encouraged Medication Review/Management: medications reviewed high-risk medications identified Intervention: Promote Injury-Free Environment Flowsheets (Taken 01/24/2023602) Safety Promotion/Fall Prevention: activity supervised fall prevention program maintained clutter-free environment maintained muscle strengthening facilitated nonskid shoes/slippers when out of bed lighting adjusted safety round/check completed * Ok Saeed RN - 01/23/2023 5:37 PM EDT End of Shift Summary Pertinent Events This Shift: VSS. No changes. ECHO completed. Nursing Concerns: none Patient/Family Concerns: none voiced Barriers Toward Goals/Discharge: IPR when medically cleared Mental Status: A&Ox4 Pain Control: rectal pain. Given gas medication and tylenol for relief Mobility: GEMS 4 * Timothy Monroe MD - 01/23/2023 12:47 PM EDT [facility] Brief Note I saw and examined Mr. Rosenthal and spoke to him and his at bedside. He is back to normal. Confusion was likely secondary to delirium. He is ambulating to the bathroom.Will need to go back to inpatient rehab. On exam: no crackles, normal S1, S2, no murmur. Abdominal pulsation noted, that is new as per .US abdomen showed moderate splenomegaly. From the cardiac standpoint, I would like to obtain echocardiogram to rule out significant AR. Other than abdominal pulsation, he has no other signs of AR. Pulse pressure is wnl and diastolic pressure is normal as well. He is on torsemide 60 mg PO BID. BUN/creatinine continue to improve. Euvolemic on clinical exam. Electronically signed by Timothy Monroe MD 01/23/2023 12:51 PM * Lauren Mcghee MD - 01/23/2023 11:10 AM EDT [facility] Hospitalist Progress Note Lauren Mcghee MD Subjective: Admit Date: 01/21/2023 Raghu Rosenthal, 77yrs old, Male with history significant for CAD s/p CABG x2, hypertension, hyperlipidemia, TAVR 01/[address] Shannon Davison, HFrEF who was transferred from inpatient rehab to the hospital for altered mental status that began overnight. Patient states he feels much better. He is having small stools and feels a little constipated but otherwise no confusion. No other complaints. Review of Systems: see HPI, otherwise negative aspirin, 81 mg, DAILY clopidogreL, 75 mg, DAILY enoxaparin (LOVENOX) injection, 40 mg, Q24HR escitalopram, 20 mg, DAILY [START ON 02/02/2023] evolocumab, 140 mg, Q2WKS [Held by Provider] gabapentin, 100 mg, QHS insulin lispro, , TID-WITH MEALS metoprolol succinate XL, 25 mg, DAILY potassium chloride, 40 mEq, DAILY sodium chloride, 3 mL, Q8HR spironolactone, 25 mg, DAILY tiotropium, 1 Capsule, RTDAILY torsemide, 60 mg, BID [Held by Provider] traZODone, 50 mg, QPM dextrose, 15 g, PRN dextrose 50% in water, 25 mL, PRN dextrose 50% in water, 50 mL, PRN docusate sodium, 100 mg, DAILY-PRN hydrALAZINE, 25 mg, P9BD-HOB ondansetron, 4 mg, J7CI-FAG perflutren lipid microsphere, 1.43 mg, ONCE Objective: Patient Vitals for the past 8 hrs: BP Temp Pulse Resp SpO2 01/23/23 1150 137/66 36.6 ??C (97.8 ??F) 75 18 98 % 01/23/23 0727 (!) 153/83 36.3 ??C (97.4 ??F) 83 20 99 % Intake/Output Summary (Last 24 hours) at 01/23/2023 1450 Last data filed at 01/23/2023 0901 Gross per 24 hour Intake 480 ml Output 400 ml Net 80 ml FSBS: Patient Vitals for the past 24 hrs: FSBG Value (manual entry) 01/22/23 1752 103 Recent Labs 01/23/23 1144 01/23/23 0726 01/22/23 2104 01/22/23 1648 GLUCOSE POCT 136* 129* 188* 140* Physical Exam: Vitals: BP 137/66 Pulse 75 Temp 36.6 ??C (97.8 ??F) Resp 18 Ht 1.753 m Wt 121.8 kg [id number]% BMI 39.64 kg/m?? General: no acute distress HEENT: normocephalic and atraumatic. No scleral icterus. Neck: supple Lungs: clear to auscultation bilaterally Heart: S1, S2, RRR Abdomen: soft, nontender, nondistended, +BS Neuro: Awake, alert, oriented x 3. Labs: ALL LAB DATA PERSONALLY REVIEWED BY ME. Recent Labs 01/21/23 0426 01/21/23 1652 01/21/23 1709 01/21/23 2055 01/22/23 0333 01/22/23 0735 01/22/23 2104 01/23/23 0726 01/23/23 1144 SODIUM 135* -- -- -- 140 -- -- -- -- POTASSIUM 3.3* -- -- -- 3.8 -- -- -- -- CHLORIDE 97* -- -- -- 102 -- -- -- -- BICARBONATE 25 -- -- -- 25 -- -- -- -- BUN 61* -- -- -- 60* -- -- -- -- CREATININE 1.56* -- -- -- 1.63* -- -- -- -- GLUCOSE 88 < > -- < > 90 < > 188* 129* 136* ANIONGAP 13* -- -- -- 13* -- -- -- -- CALCIUM 8.8 -- -- -- 8.8 -- -- -- -- MAGNESIUM -- -- 1.8 -- -- -- -- -- -- PHOSPHORUS -- -- -- -- 3.2 -- -- -- -- < > = values in this interval not displayed. No results for input(s): TROPONIN in the last 72 hours. Recent Labs 01/21/23 1126 01/22/23 0333 WBC 4.95 5.51 HGB 9.4* 10.3* HCT 31.2* 34.1* PLATELET 74* 67* Recent Labs 01/21/23 1654 01/21/23 1838 PH 7.49* 7.48* PCO2 41 44 PO2 35* 21* BASEEXCESS 7.7* 8.7* No results for input(s): PT, PTT in the last 72 hours. No results for input(s): INR in the last 72 hours. EKG: Recent Results (from the past 720 hour(s)) EKG 12 LEAD Collection Time: 12/28/22 2:24 PM Test Value Low-High EKG Text INTERFACED DOCUMENTS - [facility] - ABNORMAL ECG - Sinus rhythm normal P axis, V-rate 50-99 Probable left atrial enlargement P >50mS, <-0.10mV V1 Probable anterior infarct, age indeterminate Q >35mS, T neg, V2-V5 Abnormal T, consider ischemia, lateral leads T <-0.20mV, I aVL V5 V6 Reading Physician 89962&Germán&William Heart Rate 78 P-R Interval 205 P [place] 49 QRS Duration 109 QT Internal 418 QTcB 477 QRS Loraine 17 I-40 Loraine 31 T-40 [place] 16 T Wave [place] [address] [place] 212 EKG 12 LEAD Collection Time: 12/28/22 5:53 PM Test Value Low-High EKG Text INTERFACED [employer] [facility] - ABNORMAL ECG - Sinus rhythm normal P axis, V-rate 50-99 Prolonged WY interval WY >220, V-rate 50-90 Repol abnrm, severe global ischemia (LM/MVD) Tamir aVR, STd & Tneg, ant/lat/inf Reading Physician 38806&Clay Heart Rate 86 P-R Interval 238 P [place] 100 QRS Duration 113 QT Internal 358 QTcB 428 QRS Loraine 36 I-40 Loraine 52 T-40 [place] 33 T Wave [place] 210 [place] 222 EKG 12 LEAD Collection Time: 12/29/22 10:18 AM Test Value Low-High EKG Text INTERFACED [employer] [facility] - ABNORMAL ECG - Sinus rhythm normal P axis, V-rate 60-99 Repol abnrm, severe global ischemia (LM/MVD) Tamir aVR, STd & Tneg, ant/lat/inf Prolonged WY interval WY >220, V-rate 50-90 When compared with ECG of 28-Dec-2022 17:53:56, No significant change Reading Physician 81051&Clay Heart Rate 87 P-R Interval 230 P [place] 89 QRS Duration 123 QT Internal 418 QTcB 502 QRS [place] 19 I-40 [place] 34 T-40 [place] 7 T Wave [place] [address] [place] 213 EKG 12 LEAD Collection Time: 01/01/23 5:17 AM Test Value Low-High EKG Text [facility] - ABNORMAL ECG - Sinus rhythm normal P axis, V-rate 60-99 Left bundle branch block QRSd>, broad/notched R ST elevation secondary to IVCD Multiple VCG criteria When compared with ECG of 29-Dec-2022 10:18:05, Nonspecific significant change Reading Physician 96114&Denisse Heart Rate 94 P-R Interval 201 P [place] 77 QRS Duration 140 QT Internal 397 QTcB 498 QRS Lor[place] 7 I-40 Lor[place] 36 T-40 Loraine -37 T Wave [place] [address] [place] 225 EKG 12 LEAD Collection Time: 01/01/23 11:40 PM Test Value Low-High EKG Text INTERFACED [employer] [facility] - ABNORMAL ECG - Sinus rhythm normal P axis, V-rate 60-99 Left bundle branch block QRSd>, broad/notched R When compared with ECG of 01-Jan-2023 5:17:36, No significant change Reading Physician 67189&Asif Heart Rate 97 P-R Interval 190 P [place] 63 QRS Duration 151 QT Internal 413 QTcB 525 QRS [place] 24 I-40 Lor[place] 56 T-40 Loraine -40 T Wave [place] [address] [place] 229 EKG 12 LEAD Collection Time: 01/02/23 9:01 PM Test Value Low-High EKG Text INTERFACED [employer] [facility] - ABNORMAL ECG - Sinus rhythm normal P axis, V-rate 50-99 Left bundle branch block QRSd>120, broad/notched R ST elevation secondary to IVCD Multiple VCG criteria Reading Physician 67532&Anam&Eun&W Heart Rate 96 P-R Interval 197 P [place] 97 QRS Duration 142 QT Internal 394 QTcB 499 QRS [place] 14 I-40 [place] 51 T-40 Loraine -47 T Wave [place] [address] [place] 221 EKG 12 LEAD Collection Time: 01/08/23 12:41 PM Test Value Low-High EKG Text INTERFACED [employer] [facility] - ABNORMAL ECG - Sinus or ectopic atrial rhythm P axis (-45,135) Ventricular premature complex V complex w/ short R-R interval Left bundle branch block QRSd>, broad/notched R ST elevation secondary to IVCD Multiple VCG criteria Prolonged QT interval QTc >500mS When compared with ECG of 02-Jan-2023 21:01:27, Significant change in rhythm: previously sinus Significant repolarization change Reading Physician 29028&Kimberly&Brennan Heart Rate 67 P-R Interval 179 P Loraine -84 QRS Duration 128 QT Internal 544 QTcB 560 QRS Loraine 45 I-40 Lor[place] 94 T-40 [place] [address] [place] 253 EKG 12 LEAD Collection Time: 01/09/23 12:10 AM Test Value Low-High EKG Text [facility] - ABNORMAL ECG - Sinus bradycardia Left bundle branch block QRSd>, broad/notched R LVH with secondary repolarization abnormality multi-LVH criteria, abnrm ST-T When compared with ECG of 08-Jan-2023 12:41:51, Significant repolarization change Reading Physician 26915&Asif Heart Rate 57 P-R Interval 206 P [place] 196 QRS Duration 130 QT Internal 472 QTcB 461 QRS Loraine -10 I-40 [place] 63 T-40 Loraine -32 T Wave [place] 203 [place] 199 EKG 12 LEAD Collection Time: 01/10/23 12:35 AM Test Value Low-High EKG Text [facility] - ABNORMAL ECG - Sinus bradycardia rate<60 Ventricular premature complex V complex w/ short R-R interval Prolonged WY interval WY >220, V-rate 50-90 Left bundle branch block QRSd>, broad/notched R Prolonged QT interval QTc >500mS When compared with ECG of 09-Jan-2023 0:10:13, Significant change in rhythm Significant repolarization change Reading Physician Howard&Denisse Heart Rate 56 P-R Interval 226 P [place] 64 QRS Duration 136 QT Internal 680 QTcB 657 QRS Lor[place] 6 I-40 Lor[place] 43 T-40 Loraine -30 T Wave [place] [address] [place] 207 EKG 12 LEAD Collection Time: 01/10/23 11:30 AM Test Value Low-High EKG Text INTERFACED [employer] [facility] - ABNORMAL ECG - Sinus bradycardia rate<60 Left bundle branch block QRSd>, broad/notched R ST elevation secondary to IVCD Multiple VCG criteria Abnormal T, consider ischemia, lateral leads T <-0.20mV, I aVL V5 V6 Prolonged QT interval QTc >500mS When compared with ECG of 10-Jan-2023 0:35:31, No significant change Reading Physician Howard&Denisse Heart Rate 57 P-R Interval 212 P [place] 65 QRS Duration 132 QT Internal 674 QTcB 655 QRS Loraine 38 I-40 [place] 77 T-40 [place] 1 T Wave [place] 191 [place] 204 EKG 12 LEAD Collection Time: 01/12/23 6:38 PM Test Value Low-High EKG Text [facility] - ABNORMAL ECG - A-V dual-paced complexes w/ some inhibition other complexes also detected Biventricular paced rhythm non-simultaneous bi-vent pacing When compared with ECG of 10-Jan-2023 11:30:13, Significant change in rhythm Significant repolarization change Reading Physician 74654&Parker&Abdoulaye Heart Rate 70 P-R Interval 170 P [place] 179 QRS Duration 161 QT Internal 545 QTcB 588 QRS Loraine 0 I-40 Loraine 145 T-40 Lor[place] 138 T Wave [place] -49 ST [place] -75 EKG 12 LEAD Collection Time: 01/13/23 5:17 AM Test Value Low-High EKG Text INTERFACED [employer] [facility] - ABNORMAL ECG - A-V dual-paced rhythm with some inhibition atrial and/or vent inhibition Biventricular paced rhythm non-simultaneous bi-vent pacing When compared with ECG of 12-Jan-2023 18:38:06, No significant change Reading Physician 19235&Stuart Heart Rate 70 P-R Interval 154 P Lor[place] 117 QRS Duration 147 QT Internal 581 QTcB 627 QRS Loraine 146 I-40 Loraine 156 T-40 [place] [address] [place] EKG 12 LEAD Collection Time: 01/14/23 5:10 AM Test Value Low-High EKG Text INTERFACED DOCUMENTS [facility] - ABNORMAL ECG - Atrial-ventricular dual-paced rhythm Biventricular paced rhythm non-simultaneous bi-vent pacing When compared with ECG of 13-Jan-2023 5:17:03, No significant change Reading Physician Rosa Heart Rate 74 P-R Interval 118 P [place] 139 QRS Duration 185 QT Internal 603 QTcB 670 QRS Loraine 133 I-40 Loraine 141 T-40 Loraine 136 T Wave [place] -29 ST [place] EKG 12 LEAD Collection Time: 01/14/23 4:50 PM Test Value Low-High EKG Text INTERFACED [employer] [facility] - ABNORMAL ECG - Atrial-ventricular dual-paced rhythm Biventricular paced rhythm non-simultaneous bi-vent pacing When compared with ECG of 14-Jan-2023 5:10:50, No significant change Reading Physician Rosa Heart Rate 73 P-R Interval 152 P Loraine -22 QRS Duration 171 QT Internal 551 QTcB 609 QRS Loraine -13 I-40 Lor[place] 148 T-40 [place] 135 T Wave [place] -59 ST [place] 173 EKG 12 LEAD Collection Time: 01/20/23 10:14 AM Test Value Low-High EKG Text INTERFACED [employer] [facility] - ABNORMAL ECG - A-V dual-paced rhythm with some inhibition atrial and/or vent inhibition Biventricular paced rhythm non-simultaneous bi-vent pacing Heart Rate 78 P-R Interval 113 P Lor[place] 139 QRS Duration 170 QT Internal 520 QTcB 595 QRS Loraine 118 I-40 Loraine 136 T-40 [place] 105 T Wave [place] -15 ST [place] Radiology: CT HEAD W/O IV CONTRAST Addendum Date: 01/21/2023 Addendum to correct a dictation error within the original report. 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 The current exam does not demonstrate evidence of an acute infarct as stated in the original impression. Result Date: 01/21/2023 IMPRESSION: 1. No evidence of acute intracranial hemorrhage, acute territorial infarction, hydrocephalus, or mass. 2. 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 Please note that this degree of brain parenchymal hypoattenuation limits sensitivity for detection of superimposed acute intraparenchymal abnormalities. Consider MRI if there is continued clinical concern. Reading Doctor: Javed Infante Electronic Signature by: Javed Infante US ABD LTD/SNGL ORGAN/QUAD/FU Result Date: 01/20/2023 IMPRESSION: 1. Moderate splenomegaly. 2. Left renal cysts. Reading Doctor: Gal Acuña ElectronicSignature by: Gal Acuña Most Recent Restraint Order (From admission, onward) None Assessment and Plan: Altered mental status: MRI cannot be done due to pacemaker. -- Limit sedative and benzos for now. -- Confusion likely secondary to delirium. Patient's mental status back to baseline since 01/22. Strict delirium precautions OLIVIER: Patient to use his CPAP nightly. Contributing to some level of changes in mental status HFrEF: Cont Torsemide, spironolactone Anemia/Splenomegaly: Close monitoring. If significant drop in hemoglobin, do CT abdomen and pelvis Depression/anxiety: Continue Cipro COPD: Continue Spiriva CAD: Cont Repatha Oropharyngeal dysphagia: Speech consulted, recommend regular diet DISCHARGE PENDING IPR Expected discharge date is: 01/25/2023 Lauren Mcghee MD 01/23/2023 Lauren Mcghee MD Internal Medicine [employer] preferred, pager: [phone] * Kaz Sharpe, RT(R) - 01/23/2023 7:39 AM EDT Patient has a pacemaker placed in December. The device has to be implanted 6 weeks before a MRI can bedone,depending if the device is MRI conditional. Call mri @ [phone] if any questions. * Skylar Hernandez RN - 01/23/2023 7:27 AM EDT End of Shift Summary Pertinent Events This Shift: No acute events this shift. Zofran and colace given once, both effective. Medication administered per NOV. Safety and skin protection measures observed overnight. Purposeful rounds continued Nursing Concerns: Prevent falls, prevention infection Patient/Family Concerns: None Barriers Toward Goals/Discharge: Resolution of acute medical condition Mental Status: A/O X person, place, and time Pain Control: None Mobility: GEMS 4 Problem: Adult Inpatient Plan of Care Goal: Plan of Care Review Outcome: Ongoing, Progressing Flowsheets (Taken 01/23/2023722) Plan of Care Reviewed With: patient Goal: Patient-Specific Goal (Individualized) Outcome: Ongoing, Progressing Goal: Absence of Hospital-Acquired Illness or Injury Outcome: Ongoing, Progressing Intervention: Identify and Manage Fall Risk Flowsheets (Taken 01/23/2023722) Safety Promotion/Fall Prevention: safety round/check completed nonskid shoes/slippers when out of bed Goal: Optimal Comfort and Wellbeing Outcome: Ongoing, Progressing Goal: Readiness for Transition of Care Outcome: Ongoing, Progressing Problem: Fall Injury Risk Goal: Absence of Fall and Fall-Related Injury Outcome: Ongoing, Progressing Intervention: Identify and Manage Contributors Flowsheets (Taken 01/23/2023722) Medication Review/Management: medications reviewed Intervention: Promote Injury-Free Environment Flowsheets (Taken 01/23/2023722) Safety Promotion/Fall Prevention: safety round/check completed nonskid shoes/slippers when out of bed * Lauren Scales RN - 01/22/2023 6:48 PM EDT End of Shift Summary Pertinent Events This Shift: Much improvement today. Patient is up, tolerating diet and has been upin the chair most of the day. Nursing Concerns: NA Patient/Family Concerns: NA Barriers Toward Goals/Discharge: See MD notes Mental Status: Alert and oriented x 4 Pain Control: No complaints of pain. Mobility: Gems 4. Problem: Fall Injury Risk Goal: Absence of Fall and Fall-Related Injury Outcome: Ongoing, Progressing Problem: Adult Inpatient Plan of Care Goal: Plan of Care Review Outcome: Ongoing, Progressing Goal: Patient-Specific Goal (Individualized) Outcome: Ongoing, Progressing Goal: Absence of Hospital-Acquired Illness or Injury Outcome: Ongoing, Progressing Goal: Optimal Comfort and Wellbeing Outcome: Ongoing, Progressing Goal: Readiness for Transition of Care Outcome: Ongoing, Progressing * Lauren Mcghee MD - 01/22/2023 12:21 PM EDT [facility] Hospitalist Progress Note Lauren Mcghee MD Subjective: Admit Date: 01/21/2023 Raghu Rosenthal, 77yrs old, Male with history significant for CAD s/p CABG x2, hypertension, hyperlipidemia, TAVR 01/[address] Shannon Davison, HFrEF who was transferred from inpatient rehab to the hospital for altered mental status that began overnight Review of Systems: see HPI, otherwise negative aspirin, 81 mg, DAILY clopidogreL, 75 mg, DAILY enoxaparin (LOVENOX) injection, 40 mg, Q24HR escitalopram, 20 mg, DAILY [START ON 02/02/2023] evolocumab, 140 mg, QWEEK [Held by Provider] gabapentin, 100 mg, QHS insulin lispro, , TID-WITH MEALS metoprolol succinate XL, 25 mg, DAILY potassium chloride, 40 mEq, DAILY potassium, sodium phosphates, 1 Packet, TID-WITH MEALS sodium chloride, 3 mL, Q8HR spironolactone, 25 mg, DAILY tiotropium, 1 Capsule, RTDAILY torsemide, 60 mg, BID [Held by Provider] traZODone, 50 mg, QPM dextrose, 15 g, PRN dextrose 50% in water, 25 mL, PRN dextrose 50% in water, 50 mL, PRN docusate sodium, 100 mg, DAILY-PRN hydrALAZINE, 25 mg, [id number] ondansetron, 4 mg, [id number] Objective: Patient Vitals for the past 8 hrs: BP Temp Pulse Resp SpO2 01/22/23 1100 108/57 36.5 ??C (97.7 ??F) 79 (!) 23 95 % 01/22/23 0737 115/52 36.8 ??C (98.3 ??F) 72 20 96 % No intake or output data in the 24 hours ending 01/22/23 1221 FSBS: Patient Vitals for the past 24 hrs: FSBG Value (manual entry) 01/22/23 0800 85 Recent Labs 01/22/23 1206 01/22/23 0735 01/21/23205401/21/23 1652 GLUCOSE POCT 103* 85 99 105* Physical Exam: Vitals: BP 108/57 Pulse 79 Temp 36.5 ??C (97.7 ??F) Resp (!) 23 Wt 121.8 kg SpO2 95% BMI 39.64 kg/m?? General: no acute distress HEENT: normocephalic and atraumatic. No scleral icterus. Neck: supple Lungs: clear to auscultation bilaterally Heart: S1, S2, RRR, no murmur Abdomen: soft, nontender, nondistended, +BS Extremities: no cyanosis, no clubbing, no edema Skin: warm and dry Neuro: Awake, alert, oriented x 3. Labs: ALL LAB DATA PERSONALLY REVIEWED BY ME. Recent Labs 01/20/23 0506 01/20/23 0659 01/20/23 1113 01/20/23 1116 01/21/23 0426 01/21/23 1652 01/21/23 1709 01/21/23 2055 01/22/23 0333 01/22/23 0735 01/22/23 1206 SODIUM 132* -- -- -- 135* -- -- -- 140 -- -- POTASSIUM -- -- 3.4* -- 3.3* -- -- -- 3.8 -- -- CHLORIDE 95* -- -- -- 97* -- -- -- 102 -- -- BICARBONATE 23 -- -- -- 25 -- -- -- 25 -- -- BUN 68* -- -- -- 61* -- -- -- 60* -- -- CREATININE 1.49* -- -- -- 1.56* -- -- -- 1.63* -- -- GLUCOSE 82 < > -- < > 88 < > -- < > 90 85 103* ANIONGAP 14* -- -- -- 13* -- -- -- 13* -- -- CALCIUM 8.6 -- -- -- 8.8 -- -- -- 8.8 -- -- MAGNESIUM 1.6 -- -- -- -- -- 1.8 -- -- -- -- PHOSPHORUS 1.8* -- -- -- -- -- -- -- 3.2 -- -- < > = values in this interval not displayed. No results for input(s): TROPONIN in the last 72 hours. Recent Labs 01/20/23 0506 01/21/23 1126 01/22/23 0333 WBC 6.47 4.95 5.51 HGB 8.8* 9.4* 10.3* HCT 28.4* 31.2* 34.1* PLATELET 86* 74* 67* Recent Labs 01/21/23 1654 01/21/23 1838 PH 7.49* 7.48* PCO2 41 44 PO2 35* 21* BASEEXCESS 7.7* 8.7* No results for input(s): PT, PTT in the last 72 hours. No results for input(s): INR in the last 72 hours. EKG: Recent Results (from the past 720 hour(s)) EKG 12 LEAD Collection Time: 12/28/22 2:24 PM Test Value Low-High EKG Text INTERFACED DOCUMENTS - [facility] - ABNORMAL ECG - Sinus rhythm normal P axis, V-rate 50-99 Probable left atrial enlargement P >50mS, <-0.10mV V1 Probable anterior infarct, age indeterminate Q >35mS, T neg, V2-V5 Abnormal T, consider ischemia, lateral leads T <-0.20mV, I aVL V5 V6 Reading Physician 83112&Chad Heart Rate 78 P-R Interval 205 P Loraine 49 QRS Duration 109 QT Internal 418 QTcB 477 QRS Loraine 17 I-40 Loraine 31 T-40 [place] 16 T Wave [place] [address] [place] 212 EKG 12 LEAD Collection Time: 12/28/22 5:53 PM Test Value Low-High EKG Text INTERFACED [employer] [facility] - ABNORMAL ECG - Sinus rhythm normal P axis, V-rate 50-99 Prolonged WY interval WY >220, V-rate 50-90 Repol abnrm, severe global ischemia (LM/MVD) Tamir aVR, STd & Tneg, ant/lat/inf Reading Physician 37650&Clay Heart Rate 86 P-R Interval 238 P Lor[place] 100 QRS Duration 113 QT Internal 358 QTcB 428 QRS Loraine 36 I-40 Loraine 52 T-40 Loraine 33 T Wave [place] 210 [place] 222 EKG 12 LEAD Collection Time: 12/29/22 10:18 AM Test Value Low-High EKG Text INTERFACED [employer] [facility] - ABNORMAL ECG - Sinus rhythm normal P axis, V-rate 60-99 Repol abnrm, severe global ischemia (LM/MVD) Tmair aVR, STd & Tneg, ant/lat/inf Prolonged WY interval WY >220, V-rate 50-90 When compared with ECG of 28-Dec-2022 17:53:56, No significant change Reading Physician 37357&Clay Heart Rate 87 P-R Interval 230 P [place] 89 QRS Duration 123 QT Internal 418 QTcB 502 QRS Loraine 19 I-40 Lor[place] 34 T-40 [place] 7 T Wave [place] 147 [place] 213 EKG 12 LEAD Collection Time: 01/01/23 5:17 AM Test Value Low-High EKG Text [facility] - ABNORMAL ECG - Sinus rhythm normal P axis, V-rate 60-99 Left bundle branch block QRSd>, broad/notched R ST elevation secondary to IVCD Multiple VCG criteria When compared with ECG of 29-Dec-2022 10:18:05, Nonspecific significant change Reading Physician 01188&Denisse Heart Rate 94 P-R Interval 201 P Lor[place] 77 QRS Duration 140 QT Internal 397 QTcB 498 QRS Loraine 7 I-40 Loraine 36 T-40 Loraine -37 T Wave [place] [address] [place] 225 EKG 12 LEAD Collection Time: 01/01/23 11:40 PM Test Value Low-High EKG Text INTERFACED [employer] - [facility] - ABNORMAL ECG - Sinus rhythm normal P axis, V-rate 60-99 Left bundle branch block QRSd>, broad/notched R When compared with ECG of 01-Jan-2023 5:17:36, No significant change Reading Physician 46250&Asif Heart Rate 97 P-R Interval 190 P [place] 63 QRS Duration 151 QT Internal 413 QTcB 525 QRS Loraine 24 I-40 Loraine 56 T-40 Loraine -40 T Wave [place] [address] [place] 229 EKG 12 LEAD Collection Time: 01/02/23 9:01 PM Test Value Low-High EKG Text INTERFACED DOCUMENTS - [facility] - ABNORMAL ECG - Sinus rhythm normal P axis, V-rate 50-99 Left bundle branch block QRSd>120, broad/notched R ST elevation secondary to IVCD Multiple VCG criteria Reading Physician 43768&Anam&Eun&W Heart Rate 96 P-R Interval 197 P Loraine 97 QRS Duration 142 QT Internal 394 QTcB 499 QRS Loraine 14 I-40 Loraine 51 T-40 Loraine -47 T Wave [place] [address] [place] 221 EKG 12 LEAD Collection Time: 01/08/23 12:41 PM Test Value Low-High EKG Text INTERFACED DOCUMENTS - [facility] - ABNORMAL ECG - Sinus or ectopic atrial rhythm P axis (-45,135) Ventricular premature complex V complex w/ short R-R interval Left bundle branch block QRSd>, broad/notched R ST elevation secondary to IVCD Multiple VCG criteria Prolonged QT interval QTc >500mS When compared with ECG of 02-Jan-2023 21:01:27, Significant change in rhythm: previously sinus Significant repolarization change Reading Physician 16916&Kimberly&Brennan Heart Rate 67 P-R Interval 179 P Loraine -84 QRS Duration 128 QT Internal 544 QTcB 560 QRS Loraine 45 I-40 Loraine 94 T-40 Lor[place] [address] [place] 253 EKG 12 LEAD Collection Time: 01/09/23 12:10 AM Test Value Low-High EKG Text INTERFACED DOCUMENTS [facility] - ABNORMAL ECG - Sinus bradycardia Left bundle branch block QRSd>, broad/notched R LVH with secondary repolarization abnormality multi-LVH criteria, abnrm ST-T When compared with ECG of 08-Jan-2023 12:41:51, Significant repolarization change Reading Physician 17475&Asif Heart Rate 57 P-R Interval 206 P Loraine 196 QRS Duration 130 QT Internal 472 QTcB 461 QRS Loraine -10 I-40 Loraine 63 T-40 Loraine -32 T Wave [place] 203 [place] 199 EKG 12 LEAD Collection Time: 01/10/23 12:35 AM Test Value Low-High EKG Text INTERFACED [employer] [facility] - ABNORMAL ECG - Sinus bradycardia rate<60 Ventricular premature complex V complex w/ short R-R interval Prolonged WY interval WY >220, V-rate 50-90 Left bundle branch block QRSd>, broad/notched R Prolonged QT interval QTc >500mS When compared with ECG of 09-Jan-2023 0:10:13, Significant change in rhythm Significant repolarization change Reading Physician Howard&Denisse Heart Rate 56 P-R Interval 226 P [place] 64 QRS Duration 136 QT Internal 680 QTcB 657 QRS Loraine 6 I-40 Loraine 43 T-40 Loraine -30 T Wave [place] 234 [address] [place] 207 EKG 12 LEAD Collection Time: 01/10/23 11:30 AM Test Value Low-High EKG Text INTERFACED [employer] [facility] - ABNORMAL ECG - Sinus bradycardia rate<60 Left bundle branch block QRSd>, broad/notched R ST elevation secondary to IVCD Multiple VCG criteria Abnormal T, consider ischemia, lateral leads T <-0.20mV, I aVL V5 V6 Prolonged QT interval QTc >500mS When compared with ECG of 10-Jan-2023 0:35:31, No significant change Reading Physician Howard&Denisse Heart Rate 57 P-R Interval 212 P Lor[place] 65 QRS Duration 132 QT Internal 674 QTcB 655 QRS Loraine 38 I-40 Loraine 77 T-40 Loraine 1 T Wave [place] 191 [place] 204 EKG 12 LEAD Collection Time: 01/12/23 6:38 PM Test Value Low-High EKG Text [facility] - ABNORMAL ECG - A-V dual-paced complexes w/ some inhibition other complexes also detected Biventricular paced rhythm non-simultaneous bi-vent pacing When compared with ECG of 10-Jan-2023 11:30:13, Significant change in rhythm Significant repolarization change Reading Physician 61362&Stuart Heart Rate 70 P-R Interval 170 P Loraine 179 QRS Duration 161 QT Internal 545 QTcB 588 QRS Loraine 0 I-40 Loraine 145 T-40 Loraine 138 T Wave [place] -49 ST [place] -75 EKG 12 LEAD Collection Time: 01/13/23 5:17 AM Test Value Low-High EKG Text INTERFACED [employer] [facility] - ABNORMAL ECG - A-V dual-paced rhythm with some inhibition atrial and/or vent inhibition Biventricular paced rhythm non-simultaneous bi-vent pacing When compared with ECG of 12-Jan-2023 18:38:06, No significant change Reading Physician Dennis&Stuart Heart Rate 70 P-R Interval 154 P Loraine 117 QRS Duration 147 QT Internal 581 QTcB 627 QRS Loraine 146 I-40 Loraine 156 T-40 Lor[place] [address] [place] EKG 12 LEAD Collection Time: 01/14/23 5:10 AM Test Value Low-High EKG Text INTERFACED [employer] [facility] - ABNORMAL ECG - Atrial-ventricular dual-paced rhythm Biventricular paced rhythm non-simultaneous bi-vent pacing When compared with ECG of 13-Jan-2023 5:17:03, No significant change Reading Physician Rosa Heart Rate 74 P-R Interval 118 P Loraine 139 QRS Duration 185 QT Internal 603 QTcB 670 QRS Loraine 133 I-40 Loraine 141 T-40 Loraine 136 T Wave [place] -29 ST [place] EKG 12 LEAD Collection Time: 01/14/23 4:50 PM Test Value Low-High EKG Text INTERFACED [employer] [facility] - ABNORMAL ECG - Atrial-ventricular dual-paced rhythm Biventricular paced rhythm non-simultaneous bi-vent pacing When compared with ECG of 14-Jan-2023 5:10:50, No significant change Reading Physician Rosa Heart Rate 73 P-R Interval 152 P Loraine -22 QRS Duration 171 QT Internal 551 QTcB 609 QRS Loraine -13 I-40 Loraine 148 T-40 Loraine 135 T Wave [place] -59 ST [place] 173 EKG 12 LEAD Collection Time: 01/20/23 10:14 AM Test Value Low-High EKG Text INTERFACED [employer] [facility] - ABNORMAL ECG - A-V dual-paced rhythm with some inhibition atrial and/or vent inhibition Biventricular paced rhythm non-simultaneous bi-vent pacing Heart Rate 78 P-R Interval 113 P Loraine 139 QRS Duration 170 QT Internal 520 QTcB 595 QRS Loraine 118 I-40 Loraine 136 T-40 Loraine 105 T Wave Loraine -15 ST [place] Radiology: CT HEAD W/O IV CONTRAST Addendum Date: 01/21/2023 Addendum to correct a dictation error within the original report. 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 The current exam does not demonstrate evidence of an acute infarct as stated in the original impression. Result Date: 01/21/2023 IMPRESSION: 1. No evidence of acute intracranial hemorrhage, acute territorial infarction, hydrocephalus, or mass. 2. 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 Please note that this degree of brain parenchymal hypoattenuation limits sensitivity for detection of superimposed acute intraparenchymal abnormalities. Consider MRI if there is continued clinical concern. Reading Doctor: Javed Infante Electronic Signature by: Javed Infante ABD LTD/SNGL ORGAN/QUAD/FU Result Date: 01/20/2023 IMPRESSION: 1. Moderate splenomegaly. 2. Left renal cysts. Reading Doctor: Gal Acuña ElectronicSignature by: Gal Acuña Most Recent Restraint Order (From admission, onward) None Assessment and Plan: Altered mental status: MRI cannot be done due to pacemaker. --F/u ammonia level, EEG, blood culture, urinalysis, ABG, B12. -- Limit sedative and benzos for now. --Per stroke neurology, hold of MRA head and neck for now until MRI is resulted. -- Confusion likely secondary to delirium. Patient's mental status back to baseline today 01/22. Strict delirium precautions OLIVIER: Patient to use his CPAP nightly. Contributing to some level of changes in mental status HFrEF: Cont Torsemide, spironolactone Anemia/Splenomegaly: Close monitoring. If significant drop in hemoglobin, do CT abdomen and pelvis Depression/anxiety: Continue Cipro COPD: Continue Spiriva CAD: Cont Repatha Oropharyngeal dysphagia: Speech consulted, recommend regular diet Expected discharge date is: 01/25/2023 Lauren Mcghee MD 01/22/2023 Lauren Mcghee MD Internal Medicine [facility], pager: [phone] * Skylar Hernandez RN - 01/22/2023 4:01 AM EDT End of Shift Summary Pertinent Events This Shift: Due to failed dysphagia screen pt has been NPO. Ammonia level hemolyzed 2 times per lab. Blood collected, labeled at bedside then sent to the lab. Pt was unable to use CPAP d/t obtunded state per respiratory. At 0330 I responded to pt's pulse oximetry alarm, pt was sitting up in bed speaking clearly. Pt reported not knowing where he was but was able to recall the previous events once I began to describe them to him. Safety and skin protection measures continued overnight. Purposeful rounds continued to ensures needs are met. Will give oncoming nurse BSSR. Nursing Concerns: Prevention of injury related to fall, prevention of infection monitoring pt's neurological status. 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 When speaking with the pt at 0330, pt was A/O X self, time, place confused only by situation. Pt was able to recall placement of pacemaker, having a heart attack and then transferring to [facility]. Pt is confused about the chain of events leading him to the unit. Pain Control: No c/o pain at this time Mobility: GEMS 1 Problem: Adult Inpatient Plan of Care Goal: Plan of Care Review Outcome: Ongoing, Progressing Goal: Patient-Specific Goal (Individualized) Outcome: Ongoing, Progressing Goal: Absence of Hospital-Acquired Illness or Injury Outcome: Ongoing, Progressing Intervention: Identify and Manage Fall Risk Flowsheets (Taken 01/22/2023357) Safety Promotion/Fall Prevention: safety round/check completed Intervention: Prevent and Manage VTE (Venous Thromboembolism) Risk Flowsheets (Taken 01/22/2023357) Activity Management: activity adjusted per tolerance Intervention: Prevent Infection Flowsheets (Taken 01/22/2023357) Infection Prevention: environmental surveillance performed equipment surfaces disinfected Goal: Optimal Comfort and Wellbeing Outcome: Ongoing, Progressing Intervention: Monitor Pain and Promote Comfort Flowsheets (Taken 01/22/2023 0358) Pain Management Interventions: care clustered Intervention: Provide Person-Centered Care Flowsheets (Taken 01/22/2023 035) Trust Relationship/Rapport: care explained Goal: Readiness for Transition of Care Outcome: Ongoing, Progressing Problem: Fall Injury Risk Goal: Absence of Fall and Fall-Related Injury Outcome: Ongoing, Progressing Intervention: Identify and Manage Contributors Flowsheets (Taken 01/22/2023357) Medication Review/Management: (Pt NPO d/t failed dysphagia screening.) -- Intervention: Promote Injury-Free Environment Flowsheets (Taken 01/22/2023 035) Safety Promotion/Fall Prevention: safety round/check completed * Colin Rush RN - 01/21/2023 7:49 PM EDT Patient admitted to from [facility]. Unable to answer questions upon arrival due to AMS and confusion. Labs, ABG, UA, and blood cx completed. Patient having difficulty swallowing, speech eval ordered. Patient more alert this evening but remains confused. Clear speech, asking how he got here and where his family is. Skin swarm completed, no skin issues other than pacemaker, bilateral healing groin incisions and multiple scattered bruises. * Surekha Silver MD - 01/21/2023 6:17 PM EDT Spoke with RT. Reported ABG is most likely a VBG not an ABG. RT states blood was dark and not the color of arterial blood * Lesvia Medina RT(R) - 01/21/2023 6:11 PM EDT Per protocol newly placed pacemakers and ICD implants can go through an MRI after waiting at least 6 weeks. Please call MRI [phone] if further assistance is needed. 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 Patient: Raghu Rosenthal /Age/Sex: 1945, 77yrs , Male EEG #: 23 MEG #: [id number] Room #: S222/S222 Referring MD: Winston [x] Routine []STAT []LTVM Indications: Pt is a 77yrs year old Male with history significant for CAD s/p CABG x2, hypertension, hyperlipidemia, TAVR 01/[address] Shannon Davison, HFrEF who was transferred from inpatient rehab to the hospital for altered mental status that began overnight Imaging results: CT HEAD W/O IV CONTRAST Addendum Date: 01/21/2023 Addendum to correct a dictation error within the original report. 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 The current exam does not demonstrate evidence of an acute infarct as stated in the original impression. Result Date: 01/21/2023 IMPRESSION: 1. No evidence of acute intracranial hemorrhage, acute territorial infarction, hydrocephalus, or mass. 2. 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 Please note that this degree of brain parenchymal hypoattenuation limits sensitivity for detection of superimposed acute intraparenchymal abnormalities. Consider MRI if there is continued clinical concern. Reading Doctor: Javed Infante Electronic Signature by: Javed Infante [facility] LTD/SNGL ORGAN/QUAD/FU Result Date: 01/20/2023 IMPRESSION: 1. Moderate splenomegaly. 2. Left renal cysts. Reading Doctor: Gal Acuña ElectronicSignature by: Gal Acuña PMHX: Past Medical History: Diagnosis Date Acid reflux Coronary artery disease COVID Diabetes (CMS/HCC) Diverticulitis Diverticulitis Hyperlipidemia Hypertension NSTEMI (non-ST elevated myocardial infarction) (CMS/HCC) 12/28/2022 Pacemaker 01/12/2023 FERRYBOAT CAPTAIN-P, [employer]otronik Psoriasis Stroke (CMS/HCC) Left cerebellar Subarachnoid hemorrhage (CMS/HCC) Subdural hematoma (CMS/HCC) Current Medications: aspirin EC tablet 81 mg [START ON 01/22/2023] clopidogreL (PLAVIX) tablet 75 mg dextrose (DIABETIC USE) 40 % oral gel 6 g glucose dextrose 50% in water (D50W) injection 25 mL dextrose 50% in water (D50W) injection 50 mL docusate sodium (COLACE) capsule 100 mg enoxaparin (LOVENOX) 40 mg/0.4 mL injection 40 mg escitalopram (LEXAPRO) tablet 20 mg [START ON 02/02/2023] evolocumab (REPATHA SURECLICK) pen 140 mg [Held by Provider] gabapentin (NEURONTIN) capsule 100 mg hydrALAZINE (APRESOLINE) tablet 25 mg insulin lispro (HumaLOG) 100 units/mL sensitivity factor injection [START ON 01/22/2023] metoprolol succinate XL (TOPROL-XL) 24 hr tablet 25 mg ondansetron (ZOFRAN) injection 4 mg [START ON 01/22/2023] potassium chloride (KLOR-CON M20) CR tablet 40 mEq potassium, sodium phosphates (PHOS-NAK) 280-160-250 mg packet 1 Packet sodium chloride 0.9 % flush 3 mL spironolactone (ALDACTONE) tablet 25 mg tiotropium (SPIRIVA) 18 mcg per inhalation capsule 1 Capsule AND [COMPLETED] Administration, Evaluation and Education of MDI or DPI by Respiratory Therapy as Ordered torsemide (DEMADEX) tablet 60 mg [Held by Provider] traZODone (DESYREL) tablet 50 mg [] Alert [] Awake [] Confused [] Verbally Responsive [] Coma [] Unresponsive [] Responds to Verbal Stim [] ET [] NT [] Combative Activations performed: [x] Eyes Open [x] Eyes Closed [] Awake [] Drowsy [] Asleep [x] Verbal Stim [x] Tactile Stim [x] Photic [] HV Cranial abnormalities: None seen. Tech Comments: A/O x2/ MD Impression: Normal Abnormal: * Michael Colvin RN - 01/21/2023 12:40 PM EDT SBAR report given to nurse on [facility]. Patient transported to S222 with all belongings. Spouse accompanied patient off the unit. documented in this encounter H&P Notes * Surekha Silver MD - 01/21/2023 2:38 PM EDT [facility] Hospitalist History & Physical Note Admit Date: 01/21/2023 Raghu Rosenthal, 77yrs old, Male Primary Care Provider: Williams Yip MD Chief complaint: Altered mental status HPI: Pt is a 77yrs year old Male with history significant for CAD s/p CABG x2, hypertension, hyperlipidemia, TAVR 01/[address] Shannon Davison, HFrEF who was transferred from inpatient rehab to the hospital for altered mental status that began overnight Patient recently hospitalized for respiratory failure and treated for cardiogenic shock, NSTEMI. Underwent right and left heart cath showed severe three-vessel disease and severely degenerated bioprosthetic aortic valve requiring replacement of placement. Pt also had pacemaker placement during that hospitalization Today, patient was noted to be more agitated, unable to follow simple commands. Patient transferredto hospital for further evaluation Cardiology was called yesterday due to concern for abdominal pulsation palpable in the left upper quadrant and visible when patient sitting up in bed. Recommended ultrasound which showed splenomegaly. Recommended if hemoglobin dropped, to do CT abdomen and pelvis CT head done yesterday as well showed no evidence of acute intracranial hemorrhage or acute abnormalities. Patient is seen today. Sleepy. Not following commands. Altered. at bedside who is Primarily the historian. States patient has been having fluctuation in mentation since his last hospitalization.Within the past 2 days, patient has gotten even more altered. More groggy. Acting a bit weird. Patient not using CPAP at night. Denies patient having fevers, chills. Patient has not had a good bowel movement in a while. Denies patient having headache, weakness, changes in vision. No urinary symptoms that she knows about Per IPR, patient was noted to have new onset slurred speech, right-sided tongue deviation and right-sided weaknes Past Medical History: Diagnosis Date Acid reflux Coronary artery disease COVID Diabetes ([facility]/HCC) Diverticulitis Diverticulitis Hyperlipidemia Hypertension NSTEMI (non-ST elevated myocardial infarction) (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/HCC) Left cerebellar Subarachnoid hemorrhage ([facility]) Subdural hematoma ([facility]) No family history on file. Past Surgical History: Procedure Laterality Date Left Main Stent Placement Left 01/08/2023 Performed by Tania Hartley MD [place] [facility] [place] [facility] REPLACEMENT, AORTIC VALVE, TRANSCATHETER, FEMORAL APPROACH ([employer]TRONIC 26 ELSA); Intraoperative Echocardiogram Left 01/08/2023 Performed by Tania Hartley MD at [facility] [place] [facility] [place] - COLOSTOMY Then had reverse colostomy [place] - CORONARY ARTERY BYPASS GRAFT [place] - HIP REPLACEMENT Left Total [place] - PACEMAKER [place] - REPLACEMENT OF AORTIC VALVE porcine Allergies Allergen Reactions Hydrocodone-Acetaminophen Shortness of Breath Problems breathing Venom-Honey Bee Shortness of Breath Morphine Sulfate Nausea and Vomiting Amoxicillin Mild diarrhea Atorvastatin Joint pain Clarithromycin Clavulanic Acid diarrhea Hydrocodone Bad reaction Indomethacin Lansoprazole Leflunomide Rash RASH Pravachol [Pravastatin] rash Tetracycline swelling Unclassified Drug Nausea and Vomiting Other reaction(s): Other (See Comments) IV dyes all extremtites cold Social History Socioeconomic History Marital status: Spouse [...] on file Housing Stability: Not on file Medications Prior to Admission Medication Sig Dispense Refill aspirin 81 mg Oral Tablet, Delayed Release (E.C.) Take 1 Tablet by mouth daily. clopidogreL (PLAVIX) 75 mg Oral Tablet Take 1 Tablet by mouth daily for 60 days. 30 Tablet 1 EPINEPHrine (EPIPEN) 0.3 mg/0.3 mL (1:1,000) Injection Auto-Injector Give 0.3 mL intramuscular. escitalopram (LEXAPRO) 20 mg Oral Tablet Take 1 Tablet by mouth daily. evolocumab (REPATHA SURECLICK) 140 mg/mL Subcutaneous Pen Injector Give 140 mg subcutaneous every 2weeks for 98 days. 1 mL 6 ferrous sulfate 325 mg (65 mg iron) Oral Tablet, Delayed Release (E.C.) Take 1 Tablet by mouth every 48 hours. 90 Tablet 3 gabapentin (NEURONTIN) 100 mg Oral Capsule Take 1 Capsule by mouth at bedtime. 30 Capsule 0 hydrALAZINE (APRESOLINE) 10 mg Oral Tablet Take 1 Tablet by mouth every 4 hours as needed. 90 Tablet 3 melatonin 5 mg Oral Tablet Take 1 Tablet by mouth at bedtime. 30 Tablet 0 metoprolol succinate XL (TOPROL-XL) 25 mg Oral Tablet Sustained Release 24HR Take 1 Tablet by mouthdaily. 30 Tablet 3 polyethylene glycol (GLYCOLAX) 17 gram Oral Powder in Packet Take 1 Packet by mouth daily as neededfor Constipation. 10 Packet 3 potassium chloride (KLOR-CON M20) 20 mEq Oral Tab Sust.Rel. Particle/Crystal Take 2 Tablets by mouth daily. 30 Tablet 3 QUEtiapine (SEROquel) 50 mg Oral Tablet Take 1 Tablet by mouth every 8 hours as needed. 60 Tablet 3 sodium chloride 0.9 % Injection Syringe syringe 3 mL by Intravenous route every 8 hours. 0 spironolactone (ALDACTONE) 25 mg Oral Tablet Take 1 Tablet by mouth daily. tiotropium bromide (SPIRIVA RESPIMAT) 2.5 mcg/actuation Inhalation Mist INHALE 2 PUFFS BY MOUTH EVERY DAY FOR BREATHING torsemide 60 mg Oral Tablet Take 60 mg by mouth twice a day. 120 Tablet 3 traZODone (DESYREL) 50 mg Oral Tablet Take 1 Tablet by mouth every evening. 30 Tablet 3 Current Facility-Administered Medications Medication Dose Route Frequency Provider Last Rate Last Admin aspirin EC tablet 81 mg 81 mg Oral DAILY Surekha Silver MD [START ON 01/22/2023] clopidogreL (PLAVIX) tablet 75 mg 75 mg Oral DAILY Surekha Silver MD dextrose (DIABETIC USE) 40 % oral gel 6 g glucose 15 g Oral PRN Surekha Silver MD dextrose 50% in water (D50W) injection 25 mL 25 mL Intravenous PRN Surekha Silver MD dextrose 50% in water (D50W) injection 50 mL 50 mL Intravenous PRN Surekha Silver MD docusate sodium (COLACE) capsule 100 mg 100 mg Oral DAILY-PRN Surekha Silver MD enoxaparin (LOVENOX) 40 mg/0.4 mL injection 40 mg 40 mg Subcutaneous Q24HR Surekha Silver MD escitalopram (LEXAPRO) tablet 20 mg 20 mg Oral DAILY Surekha Silver MD gabapentin (NEURONTIN) capsule 100 mg 100 mg Oral QHS Surekha Silver MD hydrALAZINE (APRESOLINE) tablet 25 mg 25 mg Oral [id number]-ICC Surekha Silver MD insulin lispro (HumaLOG) 100 units/mL sensitivity factor injection Subcutaneous TID-WITH MEALS Surekha Silver MD [START ON 01/22/2023] metoprolol succinate XL (TOPROL-XL) 24 hr tablet 25 mg 25 mg Oral DAILY Surekha Silver MD ondansetron (ZOFRAN) injection 4 mg 4 mg Intravenous [id number] Surekha Silver MD [START ON 01/22/2023] potassium chloride (KLOR-CON M20) CR tablet 40 mEq 40 mEq Oral DAILY Surekha Silver MD potassium, sodium phosphates (PHOS-NAK) 280-160-250 mg packet 1 Packet 1 Packet Oral TID-WITH MEALSIguobadia, Surekha Mejia MD sodium chloride 0.9 % flush 3 mL 3 mL Intravenous Q8HR Surekha Silver MD spironolactone (ALDACTONE) tablet 25 mg 25 mg Oral DAILY Surekha Silver MD tiotropium (SPIRIVA) 18 mcg per inhalation capsule 1 Capsule 1 Capsule Inhalation RTDAILY Surekha Silver MD torsemide (DEMADEX) tablet 60 mg 60 mg Oral BID Surekha Silver MD [Held by Provider] traZODone (DESYREL) tablet 50 mg 50 mg Oral QPM Surekha Silver MD Review of Systems: Gen: Not alert Resp: No shortness of breath noted Cardiac: No elevated heart rhythm on telemetry Physical Exam: Vitals: BP (!) 108/41 Pulse 75 Temp 36.9 ??C (98.4 ??F) Resp 20 SpO2 93% General: No acute distress. Not alert or oriented Resp: To auscultation bilaterally CV: Regular rate GI: Soft and nontender. No palpable pulses felt. Normal active bowel sounds. Neuro: Unable to follow any commands. No deviation of the tongue noted Skin: Active lesions. EKG: Recent Results (from the past 720 hour(s)) EKG 12 LEAD Collection Time: 12/28/22 2:24 PM Test Value Low-High EKG Text INTERFACED DOCUMENTS - [facility] - ABNORMAL ECG - Sinus rhythm normal P axis, V-rate 50-99 Probable left atrial enlargement P >50mS, <-0.10mV V1 Probable anterior infarct, age indeterminate Q >35mS, T neg, V2-V5 Abnormal T, consider ischemia, lateral leads T <-0.20mV, I aVL V5 V6 Reading Physician [id number]&Chad Heart Rate 78 P-R Interval 205 P [place] 49 QRS Duration 109 QT Internal 418 QTcB 477 QRS Loraine 17 I-40 Loraine 31 T-40 [place] 16 [address] [place] [address] [place] 212 EKG 12 LEAD Collection Time: 12/28/22 5:53 PM Test Value Low-High EKG Text INTERFACED DOCUMENTS - [facility] - ABNORMAL ECG - Sinus rhythm normal P axis, V-rate 50-99 Prolonged WY interval WY >220, V-rate 50-90 Repol abnrm, severe global ischemia (LM/MVD) Tamir aVR, STd & Tneg, ant/lat/inf Reading Physician [id number]&Frances&Omar Heart Rate 86 P-R Interval 238 P Lor[place] 100 QRS Duration 113 QT Internal 358 QTcB 428 QRS Loraine 36 I-40 Loraine 52 T-40 Lor[place] 33 T Wave [place] [address] [place] 222 EKG 12 LEAD Collection Time: 12/29/22 10:18 AM Test Value Low-High EKG Text [facility] - ABNORMAL ECG - Sinus rhythm normal P axis, V-rate 60-99 Repol abnrm, severe global ischemia (LM/MVD) Tamir aVR, STd & Tneg, ant/lat/inf Prolonged WY interval WY >220, V-rate 50-90 When compared with ECG of 28-Dec-2022 17:53:56, No significant change Reading Physician 50219&Frances&Omar Heart Rate 87 P-R Interval 230 P [place] 89 QRS Duration 123 QT Internal 418 QTcB 502 QRS Lor[place] 19 I-40 Lor[place] 34 T-40 [place] 7 T Wave [place] [address] [place] 213 EKG 12 LEAD Collection Time: 01/01/23 5:17 AM Test Value Low-High EKG Text [facility] - ABNORMAL ECG - Sinus rhythm normal P axis, V-rate 60-99 Left bundle branch block QRSd>, broad/notched R ST elevation secondary to IVCD Multiple VCG criteria When compared with ECG of 29-Dec-2022 10:18:05, Nonspecific significant change Reading Physician [id number]&Denisse Heart Rate 94 P-R Interval 201 P [place] 77 QRS Duration 140 QT Internal 397 QTcB 498 QRS Loraine 7 I-40 Loraine 36 T-40 Loraine -37 T Wave [place] [address] [place] 225 EKG 12 LEAD Collection Time: 01/01/23 11:40 PM Test Value Low-High EKG Text [facility] - ABNORMAL ECG - Sinus rhythm normal P axis, V-rate 60-99 Left bundle branch block QRSd>, broad/notched R When compared with ECG of 01-Jan-2023 5:17:36, No significant change Reading Physician 26611&Asif Heart Rate 97 P-R Interval 190 P [place] 63 QRS Duration 151 QT Internal 413 QTcB 525 QRS Loraine 24 I-40 Loraine 56 T-40 Loraine -40 T Wave [place] [address] [place] 229 EKG 12 LEAD Collection Time: 01/02/23 9:01 PM Test Value Low-High EKG Text [facility] - ABNORMAL ECG - Sinus rhythm normal P axis, V-rate 50-99 Left bundle branch block QRSd>120, broad/notched R ST elevation secondary to IVCD Multiple VCG criteria Reading Physician [id number]&Anam&Eun&W Heart Rate 96 P-R Interval 197 P [place] 97 QRS Duration 142 QT Internal 394 QTcB 499 QRS Loraine 14 I-40 Loraine 51 T-40 Loraine -47 T Wave [place] [address] [place] 221 EKG 12 LEAD Collection Time: 01/08/23 12:41 PM Test Value Low-High EKG Text INTERFACED [employer] [facility] - ABNORMAL ECG - Sinus or ectopic atrial rhythm P axis (-45,135) Ventricular premature complex V complex w/ short R-R interval Left bundle branch block QRSd>, broad/notched R ST elevation secondary to IVCD Multiple VCG criteria Prolonged QT interval QTc >500mS When compared with ECG of 02-Jan-2023 21:01:27, Significant change in rhythm: previously sinus Significant repolarization change Reading Physician 55346&Kimberly&Brennan Heart Rate 67 P-R Interval 179 P Loraine -84 QRS Duration 128 QT Internal 544 QTcB 560 QRS Loraine 45 I-40 Loraine 94 T-40 Lor[place] [address] [place] 253 EKG 12 LEAD Collection Time: 01/09/23 12:10 AM Test Value Low-High EKG Text INTERFACED [employer] [facility] - ABNORMAL ECG - Sinus bradycardia Left bundle branch block QRSd>, broad/notched R LVH with secondary repolarization abnormality multi-LVH criteria, abnrm ST-T When compared with ECG of 08-Jan-2023 12:41:51, Significant repolarization change Reading Physician 41250&Asif Heart Rate 57 P-R Interval 206 P [place] 196 QRS Duration 130 QT Internal 472 QTcB 461 QRS Loraine -10 I-40 Loraine 63 T-40 Loraine -32 T Wave [place] 203 [address] [place] 199 EKG 12 LEAD Collection Time: 01/10/23 12:35 AM Test Value Low-High EKG Text [facility] - ABNORMAL ECG - Sinus bradycardia rate<60 Ventricular premature complex V complex w/ short R-R interval Prolonged WY interval WY >220, V-rate 50-90 Left bundle branch block QRSd>, broad/notched R Prolonged QT interval QTc >500mS When compared with ECG of 09-Jan-2023 0:10:13, Significant change in rhythm Significant repolarization change Reading Physician 36701&Denisse Heart Rate 56 P-R Interval 226 P [place] 64 QRS Duration 136 QT Internal 680 QTcB 657 QRS Loraine 6 I-40 Loraine 43 T-40 Loraine -30 T Wave [place] [address] [place] 207 EKG 12 LEAD Collection Time: 01/10/23 11:30 AM Test Value Low-High EKG Text INTERFACED [employer] [facility] - ABNORMAL ECG - Sinus bradycardia rate<60 Left bundle branch block QRSd>, broad/notched R ST elevation secondary to IVCD Multiple VCG criteria Abnormal T, consider ischemia, lateral leads T <-0.20mV, I aVL V5 V6 Prolonged QT interval QTc >500mS When compared with ECG of 10-Jan-2023 0:35:31, No significant change Reading Physician 96563&Denisse Heart Rate 57 P-R Interval 212 P [place] 65 QRS Duration 132 QT Internal 674 QTcB 655 QRS Loraine 38 I-40 Loraine 77 T-40 Loraine 1 T Wave [place] 191 [place] 204 EKG 12 LEAD Collection Time: 01/12/23 6:38 PM Test Value Low-High EKG Text INTERFACED [employer] [facility] - ABNORMAL ECG - A-V dual-paced complexes w/ some inhibition other complexes also detected Biventricular paced rhythm non-simultaneous bi-vent pacing When compared with ECG of 10-Jan-2023 11:30:13, Significant change in rhythm Significant repolarization change Reading Physician 98760&Stuart Heart Rate 70 P-R Interval 170 P [place] 179 QRS Duration 161 QT Internal 545 QTcB 588 QRS Loraine 0 I-40 Loraine 145 T-40 Loraine 138 T Wave [place] -49 ST [place] -75 EKG 12 LEAD Collection Time: 01/13/23 5:17 AM Test Value Low-High EKG Text INTERFACED [employer] [facility] - ABNORMAL ECG - A-V dual-paced rhythm with some inhibition atrial and/or vent inhibition Biventricular paced rhythm non-simultaneous bi-vent pacing When compared with ECG of 12-Jan-2023 18:38:06, No significant change Reading Physician Dennis&Stuart Heart Rate 70 P-R Interval 154 P Lor[place] 117 QRS Duration 147 QT Internal 581 QTcB 627 QRS Loraine 146 I-40 Loraine 156 T-40 Lor[place] [address] [place] EKG 12 LEAD Collection Time: 01/14/23 5:10 AM Test Value Low-High EKG Text INTERFACED [employer] [facility] - ABNORMAL ECG - Atrial-ventricular dual-paced rhythm Biventricular paced rhythm non-simultaneous bi-vent pacing When compared with ECG of 13-Jan-2023 5:17:03, No significant change Reading Physician Dennis&Stuart Heart Rate 74 P-R Interval 118 P [place] 139 QRS Duration 185 QT Internal 603 QTcB 670 QRS Loraine 133 I-40 Loraine 141 T-40 Loraine 136 T Wave [place] -29 ST [place] EKG 12 LEAD Collection Time: 01/14/23 4:50 PM Test Value Low-High EKG Text INTERFACED DOCUMENTS - [facility] - ABNORMAL ECG - Atrial-ventricular dual-paced rhythm Biventricular paced rhythm non-simultaneous bi-vent pacing When compared with ECG of 14-Jan-2023 5:10:50, No significant change Reading Physician Dennis&Stuart Heart Rate 73 P-R Interval 152 P Loraine -22 QRS Duration 171 QT Internal 551 QTcB 609 QRS Loraine -13 I-40 Loraine 148 T-40 Loraine 135 T Wave [place] -59 ST [place] 173 EKG 12 LEAD Collection Time: 01/20/23 10:14 AM Test Value Low-High EKG Text INTERFACED DOCUMENTS - [facility] - ABNORMAL ECG - A-V dual-paced rhythm with some inhibition atrial and/or vent inhibition Biventricular paced rhythm non-simultaneous bi-vent pacing Heart Rate 78 P-R Interval 113 P [place] 139 QRS Duration 170 QT Internal 520 QTcB 595 QRS Loraine 118 I-40 Loraine 136 T-40 Loraine 105 T Wave Loraine -15 ST [place] (my reading): Radiology: CT HEAD W/O IV CONTRAST Addendum Date: 01/21/2023 Addendum to correct a dictation error within the original report. 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 The current exam does not demonstrate evidence of an acute infarct as stated in the original impression. Result Date: 01/21/2023 IMPRESSION: 1. No evidence of acute intracranial hemorrhage, acute territorial infarction, hydrocephalus, or mass. 2. 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 Please note that this degree of brain parenchymal hypoattenuation limits sensitivity for detection of superimposed acute intraparenchymal abnormalities. Consider MRI if there is continued clinical concern. Reading Doctor: Javed Infante Electronic Signature by: Javed Infante ABD LTD/SNGL ORGAN/QUAD/FU Result Date: 01/20/2023 IMPRESSION: 1. Moderate splenomegaly. 2. Left renal cysts. Reading Doctor: Gal Acuña ElectronicSignature by: Gal Acuña Reviewed and shows: Significant labs, reviewed personally prior to patient's admission: Recent Labs 01/19/23 0437 01/19/23 0734 01/20/23 0506 01/20/23 0659 01/20/23 1113 01/20/23 1116 01/20/23 1623 01/21/23 0426 SODIUM 133* -- 132* -- -- -- -- 135* POTASSIUM 3.2* -- -- -- 3.4* -- -- 3.3* CHLORIDE 94* -- 95* -- -- -- -- 97* BICARBONATE 26 -- 23 -- -- -- -- 25 BUN 76* -- 68* -- -- -- -- 61* CREATININE 1.45* -- 1.49* -- -- -- -- 1.56* GLUCOSE 96 < > 82 < > -- 110* 98 88 ANIONGAP 13* -- 14* -- -- -- -- 13* CALCIUM 9.0 -- 8.6 -- -- -- -- 8.8 MAGNESIUM 1.7 -- 1.6 -- -- -- -- -- PHOSPHORUS 2.6 -- 1.8* -- -- -- -- -- < > = values in this interval not displayed. No results for input(s): TROPONIN in the last 72 hours. Recent Labs 01/20/23 0506 01/21/23 1126 WBC 6.47 4.95 HGB 8.8* 9.4* HCT 28.4* 31.2* PLATELET 86* 74* No results for input(s): PH, PCO2, PO2, BASEEXCESS, TFT, FIO2 in the last 72 hours. Invalid input(s): BASEDEFICIT No results for input(s): PT, PTT in the last 72 hours. No results for input(s): INR in the last 72 hours. Assessment and plan: Raghu Rosenthal is a 77yrsyear-old Male admitted for altered mental status Active Hospital Problems *AMS (altered mental status) Altered mental status: Order MRI, ammonia level, EEG, blood culture, urinalysis, ABG, B12. Patient had TSH level checked within a month ago. Limit sedative and benzos for now. Per stroke neurology, hold of MRA head and neck for now until MRI is resulted. Pt with a cr of 1.56 OLIVIER: Patient to use his CPAP nightly. Contributing to some level of changes in mental status HFrEF: Cont Torsemide, spironolactone Anemia/Splenomegaly: Close monitoring. If significant drop in hemoglobin, do CT abdomen and pelvis Depression/anxiety: Continue Cipro COPD: Continue Spiriva CAD: Cont Repatha Oropharyngeal dysphagia: Speech consulted Diet: N.p.o. VTE Prophylaxis: Lovenox CODE STATUS: Full Code Plan has been discussed with the patient and all questions answered. Surekha Silver MD 01/21/2023 documented in this encounter Procedure Notes * Ryan Fermin MD - 01/21/2023 10:24 PM EDT ROUTINE VIDEO EEG REPORT: Name: Raghu Rosenthal Age: 77yrs Date: 01/21/2023 Clinical History: 77yrs year old Male with history significant for CAD s/p CABG x2, hypertension, hyperlipidemia, TAVR 01/[address] Shannon Davison, HFrEF who was transferred from inpatient rehab to the hospital for altered mental status that began overnight Pertinent Medication: None Technical summary: Digital recording measured by the international 10/20 system with electrodes applied with paste and impedance below 5000 ohms was performed as a portable study. Other electrodes used: EKG and others. EEG findings Background: The background rhythm was characterized by delta/theta frequencies. It was near continuous and symmetric. Reactivity was present, there was no clear posterior dominant rhythm noted. Amplitude: Left: low Right: low Sleep Patterns: No sleep patterns were recorded. Abnormal findings: -Focal slowing: None -Focal attenuation: None -Sporadic epileptiform discharges: None -Rhythmic or periodic patterns: None -Seizures: None -Pushbutton events: None Activation procedures: Photic stimulation and hyperventilation was not performed. EKG: Normal sinus rhythm. EEG interpretation and Clinical Correlation: Abnormal cvEEG due to: Mild-moderate generalized slowing of the background, a non specific finding of encephalopathy Multiple multifocal myoclonic jerks captured with no EEG correlate No seizures or epileptiform discharges noted Ryan Fermin MD 01/21/2023 10:24 PM documented in this encounter Consult Notes * Tara Vora OTR/L - 01/26/2023 9:14 AM EDT Physical Medicine and Rehabilitation Clearance Note Raghu Rosenthal a 77yrs old Male admitted to [facility] on 01/21/2023 for return to acute from [facility] for acute encephalopathy and stroke rule out . Recent hospital course acute re-admit uncomplicated. Patient is currently afebrile, VSS, last WBC WNL, Covid PENDING. Patient was seen and examined and meets medical and functional criteria for admission to Acute Inpatient Rehabilitation at [facility] today. GEMS: Mobility Level 4- Independent activities Acute primary Karuna Head MD medically cleared patient for admission to [facility] Patient will be admitted to rehab today, COVID PENDING, once the primary team completes the discharge orders including discharge medication reconciliation and the brief rehab discharge note (Completethe cody .rehabnow in the progress note section). A full discharge summary is still required, but awaiting it's completion will NOT delay the admission to rehab. Please schedule the necessary follow up appointments with the patient's PCP and financial sales consultant servicesprior to discharge to [facility]. Please schedule the appointments for 4 [facility]. This will not delay admission to [facility] however will facilitate the appropriate continued care. BOOGIE Jaramillo Rehab Senior Branch Manager 01/26/2023 9:14 AM [phone] * Tara Vora OTR/L - 01/25/2023 1:58 PM EDT Addendum [id number] -after further investigation patient's primary insurance is Medicare A & B -IPR at bed capacity -Will follow up tomorrow 01/26 JACK Jaramillo/Jessica Rehab Senior Branch Manager [phone] Victor Manuel preferred Addendum [phone] -appreciate PT/OT evals -spoke with patient and patient's at bedside, agreeable to IPR -Will begin pre-authorization with [facility] for possible admission to IPR pending insurance approval, continued medical stability and functional appropriateness. Will notify primary team once approval/denial has been obtained from insurance. JACK Jaramillo/Jessica Rehab Senior Branch Manager [phone] Victor Manuel preferred [facility] rehab follow up - chart reviewed -patient pending PT/OT evals -patient will require insurance pre-auth, will need updated therapy notes -ECHO completed 01/23 and read 01/24 -Will follow up 01/26 JACK Jaramillo/Jessica Rehab Senior Branch Manager [phone] Victor Manuel preferred * Tara Vora OTR/L - 01/24/2023 9:20 AM EDT [facility] rehab follow up - chart reviewed -patient will need updated PT/OT evals/notes as patient will require insurance pre-auth to return to [facility]. Please place orders for PT and OT evaluations -pending cardiac workup (ECHO) -Will follow up 01/25 JACK Jaramillo/Jessica Rehab Senior Branch Manager [phone] Victor Manuel preferred * Ranjan Allred MD - 01/23/2023 3:38 PM EDTAssociated Order(s): CONSULT - PHYSICAL MEDICINE/REHAB - BSOM - INPATIENT REHAB Images from the original note were not included. Department of Physical Medicine and Rehabilitation Consult Note for Inpatient Rehabilitation Patient Name: Raghu Rosenthal : 1945 Room #: S222/S222 Admit Date: 01/21/2023 Rehabilitation Consult Diagnoses Rehab Diagnosis: Cardiac: 09 Cardiac To: Physical Medicine and Rehabilitation From: Lauren Mcghee MD Date: 01/23/2023 Etiology: S/P TAVR Rehabilitation Consult Assessment/Recommendations: Pt is interested however cardiac work up is ongoing. He will also require updated PT/OT notes and insurance re-approval. IPR will F/U later this week Please call us back if you have questions or concerns. Thank you for this consult. Admission to [facility] requires medical necessity, 2 therapy need, ability to tolerate 3 hours of therapya day, and a firm disposition plan. Please be aware that admission is dependent on bed availabilityand insurance authorization. Rehab admission process for covid testing effective 07/31/22: [facility] patients will need to have a COVID PCR test if they have not been tested within the previous 10 days of the admission. ?? If COVID PCR is negative, the patient is admitted without special room accommodations. ?? If COVID PCR is positive and patient is medically stable for an IPR admission, the patient is admitted with special room accommodations if not cleared by IC prior to admission. Raghu Rosenthal a 77yrs old Male admitted to [facility] on 12/28/2022 for NSTEMI and valve replacement. Hospital course complicated by respiratory distress, RTA'd for AMS 1. Impaired mobility and ADLs - impaired mobility and ADLs resulting from the above and multiple comorbidities, would benefit from rehab for the following: Plan: - PT: balance, functional mobility, gait training, orthotics/prosthetic training, transfer training, improving strength, improving endurance, wheelchair mobility, education on assistive devices - OT: ADLs, iADLs, adaptive equipment training, transfer training - ST: cognitive-communicative treatment, dysphagia treatment, thought processing, medication management 01/08/23 TransCatheter Aortic Valve Replacement (Couyw-vl-Oulrp, 26 Medtronic Evolut Pro, via the Left Transfemoral Approach) EF 35% (01/08/2023) Cardiogenic shock Acute on chronic HFrEF NSTEMI HLD -Therapies as above -[facility] Cardiology following -Strict I's and O's, daily weights -Avoid nephrotoxins and hypotension -Pulm toileting, monitor O2, wean as tolerated -Precautions: No heavy lifting (>10lbs), pushing, or pulling until insertion site is healed for 4-6 weeks. Do not raise your arm above shoulder level or stretch for 4-6 weeks. No driving until two-week site check appointment. - Due to fragile cardiac function, will [...] lipitor will resume home crestor, ct trilipix -Repeat ECHO per cardiology pending CKD stage 3 Baseline creatinine ~ 1.5-1.6 - avoid nephrotoxic agents and renally dose all required medicines - CTM Psoriatic arthropathy Chronic Right shoulder pain OA of bilateral knees - MMPT per primary PTSD Depressive disorder - continue lexapro Class 2 Obesity Body mass index is 37.36 kg/m??. - nutrition/staffing analyst counseling - DM diet w/o sweets or juice - consider [facility] with Dr. Nettles ASthma OLIVIER Delirium Slurred speech RUE weakness - Consider cipap - continue spiriva and prn albuterol Hx of TIA Cerebellar stroke SAH - Consider stroke neuro consult - DAPT (30 days of plavix) and statin - Delirium precautions GERD - continue PPI VTE Prophylaxis: per primary team History of Present Illness: Raghu Rosenthal is a 77yrs old White Male with past medical history of CAD s/p CABG x2 in [place] 10 years ago, HTN, HLD, porcine AVR who initially presented to [place] ED with complaints of SOB and midchest pressure. Patient lives in [place] with his , and is visiting [facility] for the next 3 months.He recently had a ziopatch placed by the [place] on 12/27. Following this procedure he had worsening SOB associated with fatigue, malaise and generalized weakness. EMS was called and he was brought to [place] ED. On arrival he was noted to be in mild respiratory distress and required bipap. WBC of 19. EKG without TAMIR, troponin 1.197. CXR consistent with mild interstitial edema, and a small left pleural effusion. He was given nitro sublingual and morphine, and started on BID lovenox. He was admitted to the ICU at [place]. He was started on empiric vanc, cefepime for possible infection. He was hypotensive requiring levophed with a differential of cardiogenic vs septic shock. He had a repeat EKG done on 12/28 with a new LBBB. His troponin trended as high as 39. Given concerns for acute coronary syndrome, he was transferred to [facility] for further management. On arrival to CICU, patient is awake and alert. He is on low dose levophed. He is warm to the touchand appears well perfused. POCUS with EF visually estimated at 45%. He underwent a R/LHC 12/28/2022 showin. Severe three-vessel disease with patent VOGT to LAD, intermediate stenosis in mid RCA, 60% distal left main stenosis. Culprit for his HI appears to be an occluded SVG to ramus graft. There is flowin the ramus with proximal 70% stenosis. 2. He is also noted to have severely degenerated bioprosthetic aortic valve, invasive gradients reviewed severely stenotic with mean gradient over 40 mmHg. 3. Decompensated heart failure with preserved cardiac output. We had discontinued his Levophed on arrival to the [facility]. LVEDP 30mmHg Patient was treated for cardiogenic [...] L nasal cannula with weaning as tolerated. [facility] has been consulted for potential admission. Pt was RTA'd from [facility] on 01/21 2/2 AMS, slurred speech, and change from baseline. MRI Brain was recommended by stroke neuro however this was not completed due to his PPM. Cards recommended an ECHO which has yet to be completed Patient lives with spouse in a 1 story home with elevator to enter and no rails. Prior to admission, the patient was Independent with all functional mobility and ADLs. Patient has not worked with PT and OT after his RTA. Past Medical History: Diagnosis Date Acid reflux Coronary artery disease COVID Diabetes ([facility]) Diverticulitis Diverticulitis Hyperlipidemia Hypertension NSTEMI (non-ST elevated myocardial infarction) (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) Left cerebellar Subarachnoid hemorrhage ([facility]) Subdural hematoma ([facility]) Allergies Allergen Reactions Hydrocodone-Acetaminophen Shortness of Breath Problems breathing Venom-Honey Bee Shortness of Breath Morphine Sulfate Nausea and Vomiting Amoxicillin Mild diarrhea Atorvastatin Joint pain Clarithromycin Clavulanic Acid diarrhea Hydrocodone Bad reaction Indomethacin Lansoprazole Leflunomide Rash RASH Pravachol [Pravastatin] rash Tetracycline swelling Unclassified Drug Nausea and Vomiting Other reaction(s): Other (See Comments) IV dyes all extremtites cold aspirin, 81 mg, DAILY clopidogreL, 75 mg, DAILY docusate sodium, 100 mg, BID enoxaparin (LOVENOX) injection, 40 mg, Q24HR escitalopram, 20 mg, DAILY [START ON 02/02/2023] evolocumab, 140 mg, Q2WKS [Held by Provider] gabapentin, 100 mg, QHS insulin lispro, , TID-WITH MEALS metoprolol succinate XL, 25 mg, DAILY potassium chloride, 40 mEq, DAILY senna, 1 Tablet, QPM sodium chloride, 3 mL, Q8HR spironolactone, 25 mg, DAILY tiotropium, 1 Capsule, RTDAILY torsemide, 60 mg, BID [Held by Provider] traZODone, 50 mg, QPM dextrose, 15 g, PRN dextrose 50% in water, 25 mL, PRN dextrose 50% in water, 50 mL, PRN docusate sodium, 100 mg, DAILY-PRN hydrALAZINE, 25 mg, [id number] ondansetron, 4 mg, [id number] perflutren lipid microsphere, 1.43 mg, ONCE Past Surgical History: Procedure Laterality Date Left Main Stent Placement Left 01/08/2023 [facility], AORTIC VALVE, TRANSCATHETER, FEMORAL APPROACH (MEDTRONIC 26 ELSA); Intraoperative Echocardiogram Left 01/08/2023 Performed by Tania Hartley MD at [facility] [place] - COLOSTOMY Then had reverse colostomy [place] - CORONARY ARTERY BYPASS GRAFT [place] - HIP REPLACEMENT Left Total [place] - PACEMAKER [place] - REPLACEMENT OF AORTIC VALVE porcine No family history on file. The patient's family history was reviewed but is not pertinent to the current condition. Social History Socioeconomic History Marital status: Tobacco Use Smoking status: Former Types: Cigarettes Smokeless tobacco: Never Social Determinants of Health Transportation Needs: No Transportation Needs Lack of Transportation (Medical): No Lack of Transportation (Non-Medical): No Review of Systems: A complete review of systems was obtained; all other systems were reviewed and are otherwise negative except as stated below. (-) Chest pain, Palpitations (-) Shortness of breath Rehabilitation Consult Physical Exam: Vitals: Blood pressure 137/66, pulse 75, temperature 36.6 ??C (97.8 ??F), resp. rate 18, height 1.753 m, weight 121.8 kg, SpO2 98 %. Patient Vitals for the past 24 hrs: FSBG Value (manual entry) 01/22/23 1752 103 Physical Exam: General: NAD Mental Status: A/O to self Respiratory: Normal work of breathing GI: Nondistended Integument: no lesions on exposed skin Cranial nerves: grossly intact Motor Examination: No joint tenderness, cyanosis or edema #RUE: 3/5 grossly #LUE: 3/5 grossly #RLE: 3/5 grossly #LLE: 3/5 grossly Sensory Examination: Intact to light touch grossly Gait: not assessed Psychiatric: No agitation noted RH MD Consult Labs: Recent Labs 01/22/23 0333 01/22/23 0735 01/23/23 1144 BUN 60* -- -- SODIUM 140 -- -- POTASSIUM 3.8 -- -- CHLORIDE 102 -- -- BICARBONATE 25 -- -- GLUCOSE 90 < > 136* CREATININE 1.63* -- -- ANIONGAP 13* -- -- CALCIUM 8.8 -- -- < > = values in this interval not displayed. WBC (White Blood Cell Count) Date/Time Value Ref Range Status 01/22/2023 03:33 AM 5.51 4.50 - 11.00 k/uL Final Hemoglobin Date/Time Value Ref Range Status 01/22/2023 03:33 AM 10.3 (L) 13.0 - 18.0 g/dL Final Hematocrit Date/Time Value Ref Range Status 01/22/2023 03:33 AM 34.1 (L) 40.0 - 52.0 % Final Platelet Count Date/Time Value Ref Range Status 01/22/2023 03:33 AM 67 (L) 150 - 440 k/uL Final See top of note for assessment and recommendations. Ranjan Allred MD 01/23/2023 For new consults, please just place the order. You do not need to page the consult resident; however, the pager is [phone] if you wish to contact us. For other follow up on consults, please call: [phone] Associated attestation - Mehdi Bowman MD - 01/23/2023 4:00 PM EDT I was consulted by Lauren Mcghee MD to evaluate patient for admission to the inpatient rehabilitation unit based on functional status and medical needs I discussed the patient with Dr. Allred and the rehabilitation preadmission team. I then saw and evaluated patient personally. I have reviewed the resident's note and agree with the rehabilitation assessment and plan of care. Thank you for this consult and please find our recommendations below. Please do not hesitate to contact me with any questions and thank you for allowing us to participate in the care of this patient. Agree with A/P except and/or adding the following: Recommend the following: Physical Therapy: for balance, functional mobility, gait training, ROM, transfer training, improving strength, improving endurance, wheelchair mobility if indicated and education on assistive devices. Occupational Therapy: for ADLs, iADLs, adaptive equipment training, transfer training Speech Therapy: for cognitive-communicative treatment, thought processing, medication management Mehdi Bowman MD Department of Physical Medicine and Rehabilitation * Tara Vora, OTR/L - 01/23/2023 3:03 PM EDT [facility] Health Rehab consult received. Chart reviewed. Pt will be seen at bedside with a full PM&R consult to follow. Thank you for this referral. JACK Jaramillo/Jessica Rehab Senior Branch Manager [phone] [employer] Preferred documented in this encounter Plan of Treatment Not on file documented as of this encounter Procedures Procedure Name Priority Date/Time Associated Diagnosis Comments GLUCOSE, GLUCOMETER Routine 01/26/2023 4 :43 PM EDT GLUCOSE, GLUCOMETER Routine 01/26/2023 1 1:42 AM EDT COVID-19 STAT STAT 01/26/2023 10:21 AM EDT GLUCOSE, GLUCOMETER Routine 01/26/2023 7 :45 AM EDT BASIC METABOLIC PANEL Routine 01/26/2023 4:56 AM EDT GLUCOSE, GLUCOMETER Routine 01/25/2023 9 :00 PM EDT GLUCOSE, GLUCOMETER Routine 01/25/2023 5 :08 PM EDT GLUCOSE, GLUCOMETER Routine 01/24/2023 9 :17 PM EDT GLUCOSE, GLUCOMETER Routine 01/24/2023 4 :34 PM EDT GLUCOSE, GLUCOMETER Routine 01/24/2023 1 2:33 PM EDT GLUCOSE, GLUCOMETER Routine 01/24/2023 7 :23 AM EDT (PANEL)-CBC WITH DIFFERENTIAL Routine 01/24/2023 3:36 AM EDT CBC WITH DIFFERENTIAL Routine 01/24/2023 3:36 AM EDT BASIC METABOLIC PANEL Routine 01/24/2023 3:36 AM EDT HEPATIC FUNCTION PANEL Add-On 01/24/2023 3:36 AM EDT GLUCOSE, GLUCOMETER Routine 01/23/2023 8 :57 PM EDT ECHO Routine 01/23/2023 2:16 PM EDT GLUCOSE, GLUCOMETER Routine 01/23/2023 1 1:44 AM EDT GLUCOSE, GLUCOMETER Routine 01/23/2023 7 :26 AM EDT GLUCOSE, GLUCOMETER Routine 01/22/2023 9 :04 PM EDT GLUCOSE, GLUCOMETER Routine 01/22/2023 4 :48 PM EDT GLUCOSE, GLUCOMETER Routine 01/22/2023 1 2:06 PM EDT GLUCOSE, GLUCOMETER Routine 01/22/2023 7 :35 AM EDT (PANEL)-CBC WITH DIFFERENTIAL Routine 01/22/2023 3:33 AM EDT CBC WITH DIFFERENTIAL Routine 01/22/2023 3:33 AM EDT RENAL FUNCTION PROFILE Routine 01/22/2023 3:33 AM EDT AMMONIA Routine 01/22/2023 3:33 AM EDT GLUCOSE, GLUCOMETER Routine 01/21/2023 8 :55 PM EDT CULTURE, BLOOD Timed 01/21/2023 6:42 PM EDT VENOUS BLOOD GAS STAT 01/21/2023 6:38 PM EDT CULTURE, BLOOD Timed 01/21/2023 6:38 PM EDT URINALYSIS, COMPLETE Routine 01/21/2023 5:12 PM EDT (PANEL)-URINALYSIS, COMPLETE Routine 01/21/2023 5:12 PM EDT MAGNESIUM STAT 01/21/2023 5:09 PM EDT VITAMIN B12 Routine 01/21/2023 5:09 PM EDT HEPATIC FUNCTION PANEL STAT 01/21/2023 5:09 PM EDT BLOOD GAS, ARTERIAL Routine 01/21/2023 4 :54 PM EDT GLUCOSE, GLUCOMETER Routine 01/21/2023 4 :52 PM EDT documented in this encounter Results * (ABNORMAL) GLUCOSE, GLUCOMETER (01/26/2023 4:43 PM EDT) Only the most recent of18 resultswithin the time period is included. Glucose 105(H) 70 - 100 mg/dL 01/26/2023 4:45 PM EDT [facility] POC TEST Comment:Notified RN Blood BLOOD / Unknown 01/26/2023 4 :43 PM EDT 01/26/2023 4:44 PM EDT Karuna Head MD LAB POC UNS OLICITED ORDERABLES [facility]OC [facility] [address] [place] [address] * COVID-19 STAT (01/26/2023 10:21 AM EDT) SARS-Coronavir us-2 PCR Negative Negative 01/26/2023 11:42 AM EDT [facility] ([facility]) Swab NASOPHARYNGEAL STRUCTURE / Unknown Non-blood Collection / Unknown 01/26/2023 10:21 AM EDT 01/26/2023 10:28 AM EDT Narrative [facility] ([facility]) - 01/26/2023 11:42 AM EDT Negative results do not preclude COVID-19 infection and should not be used as the sole basis for diagnosis, treatment or other patient management decisions. Improper nasopharyngeal specimen collection may lead to a false-negative result. The Xpert Xpress SARS-CoV-2 test is a rapid, real-time RT-PCR test intended for the qualitative detection of nucleic acid from SARS-CoV-2. This test has not been FDA cleared or approved; it has been authorized by FDA under an EUA for use by authorized laboratories. Test authorization is only for the detection of nucleic acid from SARS-CoV-2, not for any other viruses or pathogens. Karuna Head MD LAB MICROBI OLOGY ORDERABLES [facility] ([facility]) [address] [place] [address] * (ABNORMAL) BASIC METABOLIC PANEL (01/26/2023 4:56 AM EDT) Only the most recent of2 resultswithin the time period is included. BUN 55(H) 8 - 26 mg/dL 01/26/2023 5:36 AM EDT [facility] ([facility]) Sodium 133(L) 136 - 145 mEq/L 01/26/2023 5:36 AM EDT [facility] ([facility]) Potassium 3.8 3.5 - 5.1 mEq/L 01/26/2023 5:36 AM EDT [facility] ([facility]) Chloride 100 98 - 107 mEq/L 01/26/2023 5:36 AM EDT [facility] ([facility]) CO2 24 23 - 31 mEq/L 01/26/2023 5:36 AM EDT [facility] ([facility]) Anion Gap 9 4 - 12 mEq/L 01/26/2023 5:36 AM EDT [facility] ([facility]) Glucose 88 70 - 105 mg/dL 01/26/2023 5:36 AM EDT [facility] ([facility]) Creatinine 2.01(H) 0.72 - 1.25 mg/dL 01/26/2023 5:36 AM EDT [facility] ([facility]) Glomerular Filtration Rate 34(L) >=59 mL/Min/1.7 3 m2 01/26/2023 5:36 AM EDT [facility] ([facility]) Calcium 8.3(L) 8.4 - 10.2 mg/dL 01/26/2023 5:36 AM EDT [facility] ([facility]) Osmo (Calc'd) 292 mOsm/kg 01/26/2023 5:36 AM EDT [facility] ([facility]) Bun:Creat Ratio 27.36 5:36 AM EDT [facility] ([facility]) Blood BLOOD / Unknown Venipuncture / Unknown 01/26/2023 4:56 AM EDT 01/26/2023 5:00 AM EDT Karuna Head MD LAB BLOOD O RDERABLES [facility] ([facility]) [address] [place] [address] * (ABNORMAL) HEPATIC FUNCTION PANEL (01/24/2023 3:36 AM EDT) Only the most recent of2 resultswithin the time period is included. Albumin 2.8(L) 3.2 - 4.6 g/dL 01/24/2023 8:22 AM EDT [facility] ([facility]) Bilirubin, Total 1.4(H) 0.1 - 1.2 mg/dL 01/24/2023 8:22 AM EDT [facility] ([facility]) Bilirubin, Direct 0.7(H) <=0.5 mg/dL 01/24/2023 8:22 AM EDT [facility] ([facility]) Alk Phosphatase 51 40 - 150 U/L 01/24/2023 8:22 AM [facility] ([facility]) SGOT (AST) 50(H) 5 - 34 U/L 01/24/2023 8:22 AM T [facility] ([facility]) SGPT (ALT) 23 0 - 55 U/L 01/24/2023 8:22 AM [facility]) Protein, Total 5.5(L) 6.2 - 8.1 g/dL 01/24/2023 8:22 AM [facility]) Bilirubin, Indirect 0.7 mg/dL 01/24/2023 8:22 AM [facility]) Globulin (Calc'd) 2.7 g/dL 01/24/2023 8:22 AM [facility]) A:G Ratio 1.04 01/24/2023 8:22 AM [facility]) Blood BLOOD / Unknown Venipuncture / Unknown 01/24/2023 3:36 AM EDT 01/24/2023 3:39 AM EDT Karuna Head MD LAB BLOOD O RDERABLES [facility] ([facility]) [address] [place] [address] * (ABNORMAL) CBC WITH DIFFERENTIAL (01/24/2023 3:36 AM EDT) Only the most recent of2 resultswithin the time period is included. WBC (White Blood Cell Count) 5.77 4.50 - 11.00 k/uL 01/24/2023 3:59 AM [facility] ([facility]) RBC (Red Blood Cell Count) 3.49(L) 4.40 - 5.90 M/uL 01/24/2023 3:59 AM [facility] ([facility]) Hemoglobin 10.4(L) 13.0 - 18.0 g/dL 01/24/2023 3:59 AM [facility]) Hematocrit 35.0(L) 40.0 - 52.0 % 01/24/2023 3:59 AM [facility]) MCV (Mean Corpuscular Volume) 100.3(H) 80.0 - 100.0 fL 01/24/2023 3:59 AM [facility]) MCH (Mean Corpuscular Hemoglobin) 29.8 26.0 - 34.0 pg 01/24/2023 3:59 AM [facility]) MCHC (Mean Corpuscular Hemoglobin Concentration) 29.7(L) 32.0 - 36.0 g/dL 01/24/2023 3:59 AM [facility]) RDW (Red Cell Distribution Width) 17.9(H) 11.5 - 14.5 % 01/24/2023 3:59 AM [facility]) Platelet Count 87(L) 150 - 440 k/uL 01/24/2023 3:59 AM [facility]) MPV (Mean Platelet Volume) 10.2 7.4 - 10.6 fL 01/24/2023 3:59 AM [facility]) Nucleated RBC 0.0 0 /100 WBC 01/24/2023 3:59 AM [facility]) Absolute Nucleated RBC (#) <0.01 0 k/uL 01/24/2023 3:59 AM [facility]) Neutrophils (%) 53 % 3:59 AM [facility]) Lymphocytes (%) 19 % 3:59 AM [facility]) Monocytes (%) 10 % 01/24/2023 3:59 AM [facility]) Eosinophils (%) 17 % 3:59 AM [facility]) Basophils (%) 1 % 01/24/2023 3:59 AM [facility]) Immature Granulocytes (%) 0 % 01/24/2023 3:59 AM [facility]) Absolute Neutrophils (#) 3.06 1.80 - 7.70 k/uL 01/24/2023 3:59 AM [facility] ([facility]) Absolute Lymphocytes (#) 1.11 1.00 - 4.80 k/uL 01/24/2023 3:59 AM [facility] ([facility]) Absolute Monocytes (#) 0.55 0.00 - 0.80 k/uL 01/24/2023 3:59 AM [facility] ([facility]) Absolute Eosinophils (#) 1.00(H) 0.00 - 0.50 k/uL 01/24/2023 3:59 AM [facility]) Absolute Basophils (#) 0.03 0.00 - 0.20 k/uL 01/24/2023 3:59 AM [facility]) Absolute Immature Granulocytes (#) 0.02(H) 0 k/uL 01/24/2023 3:59 AM [facility] ([facility]) Blood BLOOD / Unknown Venipuncture / Unknown 01/24/2023 3:36 AM EDT 01/24/2023 3:40 AM EDT Lauren Mcghee MD LAB BLOOD ORDERABLES [facility] ([facility]) [address] [place] [address] * ECHO (01/23/2023 2:16 PM EDT) EC IVSd 1.2 cm [facility] EC LVIDd 5.7 cm [facility] EC LVIDs 4.7 cm [facility] EC LVPWd 1 cm [facility] EC IVS/LVPW 1.2 [facility] EC FS 17.8 % [facility] EC EDV(Teich) 159.1 ml [facility] EC ESV(Teich) 101.1 ml [facility] EC EF(Teich) 36.4 % [facility] EC EF (est.) 28.3 % [facility] EC EDV(cubed) 183.7 ml [facility] EC ESV(cubed) 102.2 ml [facility] EC EF(cubed) 44.4 % [facility] EC LV mass(C)d 255.4 grams [facility] REPOR[facility] EC LV mass(C)dI 109.5 grams/m\S \2 [facility] EC SV(Teich) 58 ml [facility] CARDIAC REPORTS EC SI(Teich) 24.9 ml/m\S\2 [facility] CARDIAC REPORTS EC SV(cubed) 81.5 ml [facility] CARDIAC REPORTS EC SI(cubed) 35 ml/m\S\2 [facility] CARDIAC REPORTS EC LVLd ap4 9 cm [facility] CARDIAC REPORTS EC EDV(MOD-sp4) 135 ml XCEL ERA CARDIAC REPORTS EC LVLs ap4 9.5 cm [facility] CARDIAC REPORTS EC ESV(MOD-sp4) 97.7 ml XCEL ERA CARDIAC REPORTS EC EF(MOD-sp4) 27.6 % XCELE RA CARDIAC REPORTS EC LVLd ap2 9.3 cm [facility] CARDIAC REPORTS EC EDV(MOD-sp2) 150 ml [facility]CEL ERA CARDIAC REPORTS EC LVLs ap2 8.9 cm [facility] CARDIAC REPORTS EC ESV(MOD-sp2) 105 ml XCEL ERA CARDIAC REPORTS EC EF(MOD-sp2) 30 % XCELE RA CARDIAC REPORTS EC SV(MOD-sp4) 37.3 ml XCELE RA CARDIAC REPORTS EC SI(MOD-sp4) 16 ml/m\S\2 [facility] RA CARDIAC REPORTS EC SV(MOD-sp2) 45 ml [facility]CELE RA CARDIAC REPORTS EC SI(MOD-sp2) 19.3 ml/m\S\2 [facility] RA CARDIAC REPORTS EC Ao V2 max 200.4 cm/sec [facility] CARDIAC REPORTS EC Ao max PG 16.2 mmHg [facility] CARDIAC REPORTS EC Ao max PG (full) 11.2 mmHg [facility] CARDIAC REPORTS EC Ao V2 mean 123.5 cm/sec [facility] CARDIAC REPORTS EC Ao mean PG 7.6 mmHg [facility] A CARDIAC REPORTS EC Ao V2 VTI 29.1 cm [facility] CARDIAC REPORTS EC LVOTmaxgradient 5 mmHg [facility] CARDIAC REPORTS EC LVOTmaxvel 111.4 cm/sec [facility] A CARDIAC REPORTS Anatomical Region Laterality Modality Other 01/23/2023 2:16 PM EDT Narrative 01/24/2023 3:20 PM EDT Reason for Exam: Limited for LVF/AV Dx Date of Service: 01/23/2023 Patient Height ??175.0 ??cm Patient Weight ??121.0 ??kg Systolic Pressure ??137 ??mmHg Diastolic Pressure ??66 ??mmHg Study Location ??ECH ?? BSA ??2.3 ??m^2 Procedure: A two-dimensional transthoracic echocardiogram with color flow and Doppler was performed in limited views only. Study Quality: Fair. A contrast injection of Definity was performed to improve assessment of LV function. Left Ventricle: The left ventricle is mildly dilated. LVEDD 5.7 cm. IVSD 1.2 cm (mildly increased). Normal posterior wall thickness. Ejection Fraction = 35-40%. Abnormal (paradoxical) septal motion consistent with LBBB. There is moderate global hypokinesis of the left ventricle. There is no thrombus. Right Ventricle: There is a pacemaker lead in the right ventricle. The right ventricle is normal in size and function. Aortic Valve: The peak aortic valve velocity 225 cm/s. Aortic mean pressure gradient= 9 mmHg. No paravalvular or transvalvular regurgitation. S/p [id number] TAVR with 26 mm Evolut FX (within 25 mm Magna, post dilated with 23 mm True balloon) on 01/08/23. Well-seated, normally functioning aortic prosthesis. Mitral Valve: There is mild mitral regurgitation. Pulmonic Valve: The Pulmonic Valve is partially seen. Trace pulmonic valvular regurgitation. MMode 2D Measurements & Calculations IVSd - 1.2 cm LVIDd - 5.7 cm LVIDs - 4.7 cm LVPWd - 1 cm IVS/LVPW - 1.2 FS - 17.8 % EDV(Teich) - 159.1 ml ESV(Teich) - 101.1 ml EF(Teich) - 36.4 % EF (est.) - 28.3 % EDV(cubed) - 183.7 ml ESV(cubed) - 102.2 ml EF(cubed) - 44.4 % LV mass(C)d - 255.4 grams LV mass(C)dI - 109.5 grams/m^2 SV(Teich) - 58 ml SI(Teich) - 24.9 ml/m^2 SV(cubed) - 81.5 ml SI(cubed) - 35 ml/m^2 LVLd ap4 - 9 cm EDV(MOD-sp4) - 135 ml LVLs ap4 - 9.5 cm ESV(MOD-sp4) - 97.7 ml EF(MOD-sp4) - 27.6 % LVLd ap2 - 9.3 cm EDV(MOD-sp2) - 150 ml LVLs ap2 - 8.9 cm ESV(MOD-sp2) - 105 ml EF(MOD-sp2) - 30 % SV(MOD-sp4) - 37.3 ml SI(MOD-sp4) - 16 ml/m^2 SV(MOD-sp2) - 45 ml SI(MOD-sp2) - 19.3 ml/m^2 Doppler Measurements & Calculations Ao V2 max - 200.4 cm/sec Ao max PG - 16.2 mmHg Ao max PG (full) - 11.2 mmHg Ao V2 mean - 123.5 cm/sec Ao mean PG - 7.6 mmHg Ao V2 VTI - 29.1 cm LVOT max gradient - 5 mmHg LVOT max bee - 111.4 cm/sec Conclusion Limited echocardiogram for valvular function. S/p [id number]-[id number] TAVR with 26 mm Evolut FX (within 25 mm Magna, post dilated with 23 mm True balloon) on 01/08/23. Well-seated, normally functioning aortic prosthesis. No paravalvular or transvalvular regurgitation. Ejection Fraction = 35-40%. The left ventricle is mildly dilated (LVEDD 5.7 cm). InterpretingPhysician:Interpreting Physician: ?? Timothy ??Mabel, ??electronically signed on 2023-01-24 15:20:53.163 Procedure Note Timothy Monroe MD - 01/24/2023 Reason for Exam: Limited for LVF/AV Dx Date of Service: 01/23/2023 Patient Height 175.0 cm Patient Weight 121.0 kg Systolic Pressure 137 mmHg Diastolic Pressure 66 mmHg Study Location ECH BSA 2.3 m^2 Procedure: A two-dimensional transthoracic echocardiogram with color flow andDoppler was performed in limited views only. Study Quality: Fair. A contrast injection of Definity was performed to improve assessment ofLV function. Left Ventricle: The left ventricle is mildly dilated. LVEDD 5.7 cm. IVSD 1.2 cm (mildly increased). Normal posterior wallthickness. Ejection Fraction = 35-40%. Abnormal (paradoxical) septal motion consistent with LBBB. There is moderate global hypokinesis of the left ventricle. There is no thrombus. Right Ventricle: There is a pacemaker lead in the right ventricle. The right ventricle is normal in size and function. Aortic Valve: The peak aortic valve velocity 225 cm/s. Aortic mean pressure gradient= 9 mmHg. No paravalvular or transvalvular regurgitation. S/p [id number]-[id number] TAVR with 26 mm Evolut FX (within 25 mm Magna, post dilated with 23 mm True balloon) on 01/08/23. Well-seated, normally functioning aortic prosthesis. Mitral Valve: There is mild mitral regurgitation. Pulmonic Valve: The Pulmonic Valve is partially seen. Trace pulmonic valvular regurgitation. MMode 2D Measurements & Calculations IVSd - 1.2 cm LVIDd - 5.7 cm LVIDs - 4.7 cm LVPWd - 1 cm IVS/LVPW - 1.2 FS - 17.8 % EDV(Teich) - 159.1 ml ESV(Teich) - 101.1 ml EF(Teich) - 36.4 % EF (est.) - 28.3 % EDV(cubed) - 183.7 ml ESV(cubed) - 102.2 ml EF(cubed) - 44.4 % LV mass(C)d - 255.4 grams LV mass(C)dI - 109.5 grams/m^2 SV(Teich) - 58 ml SI(Teich) - 24.9 ml/m^2 SV(cubed) - 81.5 ml SI(cubed) - 35 ml/m^2 LVLd ap4 - 9 cm EDV(MOD-sp4) - 135 ml LVLs ap4 - 9.5 cm ESV(MOD-sp4) - 97.7 ml EF(MOD-sp4) - 27.6 % LVLd ap2 - 9.3 cm EDV(MOD-sp2) - 150 ml LVLs ap2 - 8.9 cm ESV(MOD-sp2) - 105 ml EF(MOD-sp2) - 30 % SV(MOD-sp4) - 37.3 ml SI(MOD-sp4) - 16 ml/m^2 SV(MOD-sp2) - 45 ml SI(MOD-sp2) - 19.3 ml/m^2 Doppler Measurements & Calculations Ao V2 max - 200.4 cm/sec Ao max PG - 16.2 mmHg Ao max PG (full) - 11.2 mmHg Ao V2 mean - 123.5 cm/sec Ao mean PG - 7.6 mmHg Ao V2 VTI - 29.1 cm LVOT max gradient - 5 mmHg LVOT max bee - 111.4 cm/sec Conclusion Limited echocardiogram for valvular function. S/p oxwaz-na-rpbsy TAVR with 26 mm Evolut FX (within 25 mm Magna, post dilated with 23 mm True balloon) on 01/08/23. Well-seated, normally functioning aortic prosthesis. No paravalvular or transvalvular regurgitation. Ejection Fraction = 35-40%. The left ventricle is mildly dilated (LVEDD 5.7 cm). InterpretingPhysician:Interpreting Physician: Timothy Mnoroe,electronically signed on 2023-01-24 15:20:53.163 Timothy Monroe MD ECHOCARDIOLOGY OR DERABLES * AMMONIA (01/22/2023 3:33 AM EDT) Ammonia 33 18 - 72 umol/L 01/22/2023 4:07 AM EDT [facility] ([facility] [employer] [facility]) Blood BLOOD / Unknown Venipuncture / Unknown 01/22/2023 3:33 AM EDT 01/22/2023 3:36 AM EDT Surekha Silver MD LAB BLOOD ORDERABLES [facility] ([facility]) [address] [place] [address] * (ABNORMAL) RENAL FUNCTION PROFILE (01/22/2023 3:33 AM EDT) BUN 60(H) 8 - 26 mg/dL 01/22/2023 4:36 AM EDT [facility] ([facility]) Sodium 140 136 - 145 mEq/L 01/22/2023 4:36 AM T [facility] ([facility]) Potassium 3.8 3.5 - 5.1 mEq/L 01/22/2023 4:36 AM T [facility] ([facility]) Chloride 102 98 - 107 mEq/L 01/22/2023 4:36 AM EDT [facility] ([facility]) CO2 25 23 - 31 mEq/L 01/22/2023 4:36 AM T [facility] ([facility]) Anion Gap 13(H) 4 - 12 mEq/L 01/22/2023 4:36 AM EDT [facility] ([facility]) Glucose 90 70 - 105 mg/dL 01/22/2023 4:36 AM T [facility] ([facility]) Glomerular Filtration Rate 43(L) >=59 mL/Min/1.7 3 m2 01/22/2023 4:36 AM EDT [facility] ([facility]) Creatinine 1.63(H) 0.72 - 1.25 mg/dL 01/22/2023 4:36 AM EDT [facility] ([facility]) Calcium 8.8 8.4 - 10.2 mg/dL 01/22/2023 4:36 AM EDT [facility] ([facility]) Albumin 2.8(L) 3.2 - 4.6 g/dL 01/22/2023 4:36 AM T [facility] ([facility]) Phosphorus 3.2 2.3 - 4.7 mg/dL 01/22/2023 4:36 AM EDT [facility] ([facility]) Bun:Creat Ratio 36.81 4:36 AM T [facility] ([facility]) Osmo (Calc'd) 308 mOsm/kg 01/22/2023 4:36 AM T [facility] ([facility]) Blood BLOOD / Unknown Venipuncture / Unknown 01/22/2023 3:33 AM EDT 01/22/2023 3:36 AM EDT Surekha Silver MD LAB BLOOD ORDERABLES [facility] ([facility]) [address] [place] [address] * CULTURE, BLOOD (01/21/2023 6:42 PM EDT) Only the most recent of2 resultswithin the time period is included. Blood Culture No growth 5 days 01/26/2023 7:31 PM EDT [facility] ([facility]) Blood BLOOD / Unknown Venipuncture / Unknown 01/21/2023 6:42 PM EDT 01/21/2023 6:45 PM EDT Surekha Silver MD LAB MICROBIOLOGY ORD ERABLES Performing Organization Address City/[facility]/ZIP Co de Phone Number [facility] ([facility]) [address] [place] [phone] * (ABNORMAL) VENOUS BLOOD GAS (01/21/2023 6:38 PM EDT) pH, Venous 7.48(H) 7.33 - 7.43 01/21/2023 6:45 PM EDT [facility] ([facility]) PCO2, Venous 44 38 - 50 mm Hg 01/21/2023 6:45 PM EDT [facility] ([facility]) PO2, Venous 21(L) 30 - 50 mm Hg 01/21/2023 6:45 PM EDT [facility] ([facility]) Bicarbonate (HCO3), Venous 30(H) 24 - 28 mmol/L 01/21/2023 6:45 PM EDT [facility] ([facility]) O2 Saturation, Venous 28(L) 60 - 85 % 01/21/2023 6:45 PM EDT [facility] ([facility]) Base Excess, Venous 8.7(H) -2.0 - 2.0 mmol/L 01/21/2023 6:45 PM EDT [facility] ([facility]) O2 Therapy, Percent (FIO2 %) 21 % 01/21/2023 6:45 PM EDT [facility] ([facility]) Blood VENOUS STRUCTURE / Unknown Venipuncture / Unknown 01/21/2023 6:38 PM EDT 01/21/2023 6:40 PM EDT Surekha Silver MD LAB BLOOD ORDERABLES [facility] ([facility]) [address] [place] [phone] * URINALYSIS, COMPLETE (01/21/2023 5:12 PM EDT) Color, Urine Yellow Colorless, Yellow, or Straw 01/21/2023 5:29 PM [facility] ([facility]) Clarity, Urine Clear Clear 01/21/2023 5:29 PM [facility] ([facility]) Specific [place], Urine 1.013 1.005 - 1.030 01/21/2023 5:29 PM [facility] ([facility]) pH, Urine 6.0 5.0 - 8.0 01/21/2023 5:29 PM [facility]) Hemoglobin, Urine Negative Negative 01/21/2023 5:29 PM [facility]) Bilirubin, Urine Negative Negative 01/21/2023 5:29 PM [facility]) Urobilinogen, Urine Normal Normal 01/21/2023 5:29 PM [facility]) Ketones, Urine Negative Negative 01/21/2023 5:29 PM [facility]) Glucose, Urine Negative Negative 01/21/2023 5:29 PM [facility]) Nitrites, Urine Negative Negative 01/21/2023 5:29 PM [facility]) Leukocyte Esterase, Urine Negative Negative 01/21/2023 5:29 PM [facility]) Protein, Urine Negative Negative 01/21/2023 5:29 PM [facility] ([facility]) Urine URETHRAL STRUCTURE / Unknown Non-blood Collection / Unknown 01/21/2023 5:12 PM EDT 01/21/2023 5:14 PM EDT [facility] ([facility] [facility]) - 01/21/2023 5:29 PM EDT Microscopic examination not indicated. Surekha Silver MD LAB URINE ORDERABLES Performing Organization Address City/[facility]/ZIP Co de Phone Number [facility] ([facility]) [address] [place] [phone] * (ABNORMAL) VITAMIN B12 (01/21/2023 5:09 PM EDT) Vitamin B12 1,389(H) 213 - 816 pg/mL 01/21/2023 6:16 PM EDT [facility] ([facility]) Blood BLOOD / Unknown Venipuncture / Unknown 01/21/2023 5:09 PM EDT 01/21/2023 5:14 PM EDT Surekha Silver MD LAB BLOOD ORDERABLES Performing Organization Address [facility] Co de Phone Number [facility] ([facility]) [address] [place] [phone] * MAGNESIUM (01/21/2023 5:09 PM EDT) Magnesium 1.8 1.6 - 2.6 mg/dL 01/21/2023 5:53 PM EDT [facility] ([facility]) Blood BLOOD / Unknown Venipuncture / Unknown 01/21/2023 5:09 PM EDT 01/21/2023 5:14 PM EDT Surekha Silver MD LAB BLOOD ORDERABLES [facility] ([facility]) [address] [place] [address] * (ABNORMAL) BLOOD GAS, ARTERIAL (01/21/2023 4:54 PM EDT) pH, Arterial 7.49(H) 7.37 - 7.47 01/21/2023 6:26 PM EDT [facility] ([facility]) PCO2, Arterial 41 31 - 42 mm Hg 01/21/2023 6:26 PM EDT [facility] ([facility]) PO2, Arterial 35(LL) 80 - 90 mm Hg 01/21/2023 6:26 PM EDT [facility] ([facility]) Bicarbonate (HCO3), Arterial 30(H) 20 - 25 mmol/L 01/21/2023 6:26 PM EDT [facility] ([facility]) O2 Saturation, Arterial 67(L) 94 - 97 % 01/21/2023 6:26 PM EDT [facility] ([facility]) Base Excess, Arterial 7.7(H) -3.0 - 3.0 mmol/L 01/21/2023 6:26 PM EDT [facility] ([facility]) a/A Ratio 0.32 01/21/2023 6:26 PM EDT [facility] ([facility]) O2 Therapy, Percent (FIO2 %) 21 % 01/21/2023 6:26 PM T [facility] ([facility]) Blood ARTERIAL STRUCTURE / Unknown Arterial Line / Unknown 01/21/2023 4:54 PM EDT 01/21/2023 4:58 PM EDT Narrative [facility] ([facility]) - 01/21/2023 6:26 PM EDT Specimen is Venous not Arterial. Surekha Silver MD LAB BLOOD ORDERABLES [facility] ([facility]) [address] [place] [address] documented in this encounter Visit Diagnoses Diagnosis Somnolence Other alteration of consciousness Altered mental status, unspecified altered mental status type * Initial Eval - [facility] charles OTR/Jessica - 01/25/2023 9:12 AM EDT Images from the original note were not included. ACUTE OT ASSESSMENT [facility] Date of Assessment: 01/25/2023 Patient Name: Raghu Rosenthal : 1945 Age: 77yrs Sex: Male Admit Date: 01/21/2023 Problem List (Physician/Prescriber generated effective date of this evaluation) Patient Active Problem List Diagnosis Date Noted *(H)AMS (altered mental status) 01/21/2023 CKD (chronic kidney disease) stage 3, GFR 30-59 ml/min ([facility]) 01/09/2023 01/08/23 TransCatheter Aortic Valve Replacement ([employer]Ekl[employer], 26 Medtronic Evolut Pro, via the Left Transfemoral Approach) EF 35% 01/08/2023 Personal history of transient ischemic attack (TIA), and cerebral infarction without residual deficits 01/07/2023 Vitreous degeneration, right eye 12/29/2022 Thrombocytopenia, unspecified (CMS/[facility]) 12/29/2022 Sensorineural hearing loss, bilateral 12/29/2022 Psoriasis with arthropathy ([facility]) 12/29/2022 Arthropathic psoriasis, unspecified (CMS/[facility]) 12/29/2022 Posttraumatic stress disorder 12/29/2022 Postsurgical aortocoronary bypass status 12/29/2022 Patient under care of multiple providers 12/29/2022 Palpitations 12/29/2022 Other ill-defined and unknown causes of morbidity and mortality 12/29/2022 Pain in right shoulder 12/29/2022 Obesity 12/29/2022 Obstructive sleep apnea syndrome in adult 12/29/2022 Mitral and aortic valve disease 12/29/2022 Mild intermittent asthma 12/29/2022 Encounter for other procedures for purposes other than remedying health state 12/29/2022 Encounter for immunization 12/29/2022 Depressive disorder 12/29/2022 Encounter for screening for eye and ear disorders 12/29/2022 Contact dermatitis and other eczema 12/29/2022 Chronic rhinitis 12/29/2022 Hypertension 12/28/2022 Hyperlipidemia 12/28/2022 Coronary artery disease 12/28/2022 Diabetes mellitus (CMS/[facility]) 05/22/2019 Osteoarthritis of both knees 10/08/2018 Bradycardia 02/21/2018 Nonrheumatic aortic (valve) stenosis 08/19/2013 Subarachnoid hemorrhage ([facility]/HCC) 04/22/2012 Sleep apnea 04/22/2012 S/P prosthetic total arthroplasty of the hip 04/22/2012 Pancreatitis 04/22/2012 GERD (gastroesophageal reflux disease) 04/22/2012 Former smoker 04/22/2012 Fatty liver 04/22/2012 Diverticulitis 04/22/2012 Cholelithiasis 04/22/2012 Abdominal panniculus 04/22/2012 Psoriasis 05/05/2011 Cerebellar stroke syndrome 01/22/2011 Medical History (Physician/Prescriber generated effective date of this evaluation) Past Medical History: Diagnosis Date Acid reflux Coronary artery disease COVID Diabetes ([facility]) Diverticulitis Diverticulitis Hyperlipidemia Hypertension NSTEMI (non-ST elevated myocardial infarction) (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) Left cerebellar Subarachnoid hemorrhage ([facility]) Subdural hematoma ([facility]) Subjective: I do feel like I've been through something. Pt received seated in recliner agreeable to OT session. Pt denies pain pre and post session. Pt left seated in recliner with all needs within reach and at bedside. Patient/family goal: to go to rehab Premorbid Functional Status: Patient was living in the following setting: Home with spouse or significant other Patient's prior level of function: Independent with self care and Independent with mobility Patient's prior level of IADL function: Performed most or all IADL independently Patient has and/or used the following DME prior to admission: Rolling walker, Straight cane, Elevated toilet seat, and Tub grab bars Prior to admission, patient was in Inpatient Rehab Facility Dwelling information Maximum number of step(s) patient will need to negotiate in/outside home: 0 exterior steps and ~13 interior stairs to 2nd floor bedroom with R railing however reports can stay on1st floor First floor amenities available at discharge: full bathroom, kitchen, and bedroom Roles Limited homemaker Employment Status: Retired Precautions followed during ADL's: Cardiac precautions Fall precautions Pacemaker No heavy lifting (>10lbs), pushing, or pulling until insertion site is healed for 4-6 weeks. Donot raise your arm above shoulder level or stretch for 4-6 weeks Functional Communication Verbal Activities of Daily Living: Dressing Upper Body: Hospital gown: Level of assist: Minimal assist. Adaptive equipment/alternative method used: pacemaker precautions. Position: sitting in chair Dressing Lower Body: Shoes: Level of assist: Set up. Adaptive equipment/alternative method used: noassistive device. Position: sitting in chair Functional Transfer/Mobility: Bed mobility: N/A, pt received seated in recliner Supine to sit: N/A, pt received seated in recliner Scooting: Supervision Sit to stand: Contact guard with RW Stand to sit: Contact guard with RW Bed/chair transfers: Contact guard with RW to stand step to recliner Balance sitting: Static sitting level of assist: Supervision Balance standing: Static standing level of assist: Contact guard with RW Functional Movement Observations: generalized deconditioning Endurance: Endurance during evaluation was Good for 46 minutes of activity. Pt on RA. Patient Vitals f BP 01/25/23 0912 148/78 01/25/23 0826 102/77 Motor Planning Observations: Within functional limits Upper Extremity Assessment: Fine Motor Skills/Coordination: WFL based on clinical observation Upper Extremity Impairments: WFL Upper Extremity Sensation: WFL, denies numbness/tingling Range of Motion: WFL within PPM precautions Upper Extremity Strength: WFL, B health commissioner good Muscle Tone: WNL in upper extremities Vision/Perception: WFL, wears corrective lenses Cognition: Level of Alertness: During this session, patient was alert consistently.. Following Directions: Patient follows 1 step commands consistently with no cueing. Memory: Answers orientation questions correctly 6 of 6 attempted by verbalizing with no cueing. Social Behavior Observations: During evaluation, patient exhibited the following characteristics: pleasant/cooperative Splinting/Positioning Needs: No splinting/positioning needs identified AM-PAC SHORT FORMS TOOL DAILY ACTIVITIES Raghu Rosenthal exhibited the following: Daily Activities Tasks Putting on and taking off regular lower body clothing?: 2- A Lot Bathing (including washing, rinsing, drying)?: 2- A Lot Toileting, which includes using toilet, bedpan or urinal?: 2- A Lot Putting on and taking off regular upper body clothing?: 3- A Little Taking care of personal grooming such as brushing teeth?: 3- A Little Eating meals?: 4- None Daily Activities Scores AM-PAC Daily Activities Raw Score: 16 AM-PAC Daily Activities t-Score: 35.96 AM-PAC Daily Activities G-Code Modifier: CK Legend for Raw & T-Scale Score: Raw score of 6 (t-scale score of 17.07) indicates that Raghu Rosenthal is totally dependent on staff/family for mobility Raw score of 18 (t-scale score of 38.66) indicates that Raghu Rosenthal requires a little bit of help(minimal assistance) to complete activities of daily living Raw score of 24 (t-scale score of 57.54) indicates that Raghu Rosenthal is functionally independent Assessment: OT services are indicated. Raghu Neri with decreased satisfaction/ability to participate in the following occupations: Grooming, Bathing, Dressing, Toileting, Toilet Transfer, Safety Awareness, Education, FunctionalMobility Raghu Neri with deficits in the following performance skills that interfere with participation in occupations: Neuromusculoskeletal Control and movement functions including: muscle strength, endurance, changing body position, dynamic balance, transferring self, functional mobility Mobility: Changing body position/Dynamic Balance, Transferring self Activity and Participation: Undertaking a simple task, Undertaking a complex task, Undertaking multiple tasks, Carrying out daily routines OT Plan: Recommended Treatment: Activities of Daily Living Transfer Training Instrumental Activities of Daily Living Adaptive Equipment/DME assessment Upper Extremity Strengthening Gross motor activities Neuromuscular facilitation Energy conservation Balance activities Patient/Caregiver Education Home Safety Discharge Planning OT Intensity/Frequency: Minimum of 4 times per week OT Anticipated Duration: 2 weeks Goals/Education See Interdisciplinary Care Plan activity for detailed patient specific OT goals. See Patient Education Activity for education plan. Potential to Achieve Goals: Good Patient, Family has reviewed, understood and agrees with treatment plan: Yes Based on the Occupational Therapy Evaluation, including the patient's occupational profile, medicaland therapy history, performance deficits, and clinical decision making, the patient presents as a low complexity evaluation. Occupational Therapy Recommended Consults: Consults: Would benefit from Rehab MD Consult Occupational Therapy Discharge Recommendations: OT Services Recommended Post Discharge: Activities of daily living training, Instrumental activities of daily living training, Functional mobility training, Therapeutic exercise, Transfer training DME Needed at Discharge: Defer to next level of care Physical Assist Required at DC for: Self care, Homemaking tasks, Bathroom transfers, Household mobility, Home safety/emergency responses Discharge Caregiver : Spouse Caregiver Availability : multimedia educational specialist Physical assist caregiver able to provide: Significant Following assessment, therapist provided the following therapeutic interventions Objective/Activities Addressed this Visit: Objective/Activities Addressed Today: OT General - 05/04/23 0912 PRECAUTIONS Precautions Falls;Pacemaker;Cardiac Standing Tolerance Level of assist Contact Guard Assistance No. of persons assisting 1 Arm Support Both Length of time mins. 5 x2 Techniques Energy Conservation Assistive Device Rolling Walker Toileting Level of Assist Max Assist soiled upon arrival Clothing Management CHANDRA Max Assist Hygiene CHANDRA Max Assist Performed From Standing TOILET TRANSFER Type of transfer Stand step Level of assist Min Assist No. of person(s) assisting 1 Reason for assist Balance;Safety;Physical support or lifting Assistive device Rolling Walker DME Horizontal grab bar # of trials 1 Response to Treatment: Pt requesting additional assistance in restroom. PT required min a for stand step transfer to low commode and able to stand for hygiene x5 minutes x2 with CGA . Pt ambulated ~60 feet with CGA and RW. JACK Dsouza/Jessica Available via [employer] * Initial Kanika Ingram, PT - 01/25/2023 9:11 AM EDT PHYSICAL THERAPY EVALUATION-[facility] Patient Name: Raghu Rosenthal Date of Treatment: 01/25/2023 Date of : 1945 Age: 77yrs Date of admission: 01/21/2023 Attending Provider: Karuna Head* Start Time: Time In: 824 End Time: Time Out: 910 Active Hospital Problems Diagnosis *AMS (altered mental status) Subjective: Patient/family stated goals: improved strength, return home to [place] Patient/family subjective history: Patient received sitting upright in chair and was agreeable to PT evaluation with no c/o pain, pleasant and cooperative. States, I've been here a month. I'm ready to go home and be with my family. His entered room during evaluation and remained at bedside. Mechanism of injury: NSTEMI, cardiogenic shock, AMS Surgical Procedure: s/p AVR and pacemaker placement 01/12 Pain: See flow sheet for details. Social History Prior Functional Status: Independent in all functional mobility and ambulatory (using no assistive device at baseline) Mobility devices patient has at home: Cane-straight, Walker-rolling, Grab bars- shower, Other(comment) (elevated commode) Patient lives: with spouse Expected Caregiver at DC from Hospital: Spouse Caregiver Availability : multimedia educational specialist Caregiver/Physical Assistance available: Significant assistance available Home Setting: Two story home Exterior Home Access: No steps Interior Home Access: (pt plans to stay on main level of home at discharge) Transportation: Drives Mental Status/Communication/Psychosocial Behavior Orientation/Memory: Oriented to:, Person, Place, Time, Situation Intact Memory: Recognizes family, Remembers daily routine, Follows directions, Immediate recall, Recent recall, Remote recall LOC: Alert Speech/Communication: Verbal Coping Style: Calm, Cooperative Objective Findings: Musculoskeletal Assessment: (see OT evaluation for UE assessment) ROM: BLE WFL Strength: BLE: hip flexion 4/5; knee extension 4+/5; ankle dorsiflexion 4+/5 Neck/Trunk: Kyphosis, FHP Precautions/Weight Bearing/Orthotics: Precautions Implemented: Falls, Pacemaker (No heavy lifting (>10lbs), pushing, or pulling until insertion site is healed for 4-6 weeks. Do not raise your arm above shoulder level or stretch for 4-6 weeks) Sensation: grossly intact to light touch, pt denies any numbness or paraesthesias Coordination: No coordination deficits that impair functional tasks were noted. Tone: Normal Upright Control/Balance: Sitting Static: Normal balance reactions, accepts all challenges to static balance Sitting Dynamic: Impaired. Transitional activities in sitting: contact guard and bilateral UE support Standing Static: Impaired. Static standing position maintained with contact guard and bilateral UE support. Standing Dynamic: Impaired. Walking balance: Forward: contact guard and bilateral UE support Turn 180 degrees: contact guard and bilateral UE support Cardiopulmonary/Endurance: Length of session: 46 minutes Oxygen: Room air Pre-Activity: 102/77(83) mm Hg Post-Activity: 148/78(107) mm Hg Mobility: Supine to Sit Unable/Not assessed: Patient already up in chair at beginning of session. Sit to supine Unable/Not assessed: Patient left up in chair at end of session. Sit to stand Surface height: 22 Level of Assist: Contact Guard Assistance Assistive Device: Rolling Walker No. of person(s) assistin Reason for assist: Balance, Safety, Device management, Proper Technique # of trials: 2 Stand to sit Surface Height: 22 Level of Assist: Contact Guard Assistance Assistive Device: Rolling Walker No. of person(s) assistin Reason for assist: Balance, Safety, Device management, Proper Technique # of trials: 2 Arm Chair Transfer Type of transfer: Stand step Level of assist: Contact Guard Assistance Assistive device: Rolling Walker No. of person(s) assistin Reason for assist: Balance, Physical support or lifting, Safety, Device management, Proper Technique # of trials: 2 Locomotion: Ambulation Ambulation Level of assist: Contact Guard Assistance Assistive device: Rolling Walker No. of person(s) assistin Reasons for assist: Balance, Physical support, Safety issues, LE strength, Endurance, Device management # of trials: 2 Distance in feet: 20,20 Gait Deviations: decreased gait speed, downward gaze, decreased B step length/height Surfaces: tile Stair Climbing Up Steps Did not assess stairs up/down: as patient will not have to climb stairs at home Outcome Tools: [facility] SHORT FORMS TOOL BASIC MOBILITY Raghu Rosenthal exhibited the following: Basic Mobility Tasks Turning in bed without bedrails: 3- A Little Lying on back to sitting on edge of flat bed: 3- A Little Moving to and from a bed to a chair: 3- A Little Standing up from a chair: 3- A Little To walk in hospital room: 3- A Little Climb 3-5 steps with a railin- A Little Basic Mobility Scores [facility] Mobility Raw Score: 18 AM-[facility] Mobility t-Score: 41.05 -[facility] Mobility G-Code Modifier: CK Legend for Raw & T-Scale Score: Raw score of 6 (t-scale score of 16.59) indicates the patient is totally dependent on staff/family for mobility Raw score of 18 (t-scale score of 41.05) indicates the patient requires a little bit of help (minimal assistance) to move Raw score of 24 (t-scale score of 57.68) indicates the patient is functionally independent Patient Safety: Call Green: In Reach and Able to Use ID Band: Checked Chair: Wheels Locked Safety Promotion/Fall Prevention: fall prevention program maintained, gait belt, nonskid shoes/slippers when out of bed, assistive device/personal items within reach, activity supervised Education: See Patient Education Activity for details. Assessment: Raghu Rosenthal presents with deficits that warrant PT intervention. Patient originally admitted 12/28 for respiratory failure and treated for cardiogenic shock, NSTEMI. Underwent right and left heart cath showed severe three-vessel disease and severely degenerated bioprosthetic aortic valve requiring replacement of placement. Pt also had pacemaker placement during that hospitalization. He transferred to [facility] on 01/19 and was readmitted to acute on 01/21 with AMS thought to be 2/2 delirium. He presents oriented x4 this morning, pleasant and motivated to work with therapy. He completed transfers and ambulated with CGA using RW, 20' + 20' + 60' and required min A for toilet transfer/standing from low surface. Patient is motivated to work with therapy, has great rehab potential, and goodfamily support. Recommending return to [facility] for continue high intensity rehab. Acute PT will continue to follow. Impairments: Patient presents with impairment of the following functions: Neuromusculoskeletal and movement functions including muscle strength, balance, endurance, gait pattern Activity/Restrictions: Patient presents with limitations in activity/restrictions in participation in the following: Mobility including: Changing positions, Transfers, Walking long distances, walkingwithout an assistive device, Moving around the home, Moving around in the community, Stair climbing, Using transportation including private vehicle Treatment Plan PT Recommended Treatment: Patient/Caregiver education. Exercise/Mobility: Therapeutic exercise, Transfer training, Gait training, Functional mobility training, Balance re-education, Neuromuscular re-education Durable medical equipment assessment Discharge planning PT Intensity/Frequency: POT-Minimum Tx's per week: 4 times/week PT Anticipated Duration: 2 weeks PT POT Due: PT POT Due Date: 02/08/23 Patient, Family has reviewed, understood and agrees with treatment plan: Yes Education-See Patient Education Activity Goals Potential to Achieve Goals: Good Physical Therapy Problems (Active) Problem: GENERAL MOBILITY (ALLIED HEALTH) Dates: Start: 01/25/23 Goal: Bed Mobility Dates: Start: 01/25/23 Expected End: 02/08/23 Description: Patient will be able to perform bed mobility with supervision, using no assistive device, while following pacemaker precautions. Assistance required for safety. Goal: Household Transfer Dates: Start: 01/25/23 Expected End: 02/08/23 Description: Patient will be able to perform all functional transfers to/from household surfaces with supervision using least restrictive device, while following pacemaker precautions. Assistance required for safety. Goal: Ambulation Dates: Start: 01/25/23 Expected End: 02/08/23 Description: Patient will be able to ambulate with supervision with least restrictive device >/=100 ft, while following pacemaker precautions. Assistance required for safety. Discharge Plan/Recommendations: Post-Acute Therapy Needs: Gait training, Therapeutic Activities, Therapeutic Excercises, Neuromuscular Re-education Intensity/setting: high intensity, facility based Physical Assistance Required at This Time: All mobility Supervision Required at This Time: All mobility Expected Caregiver at DC from Hospital: Spouse Caregiver Availability : multimedia educational specialist Caregiver/Physical Assistance available: Significant assistance available Equipment Needed at DC: Will be assessed at next level of care Physical Therapy Recommendations: Consults: Consults: Would benefit from Rehab MD Consult Equipment: Will be assessed at next level of care Discharge Therapy Needs: High intensity therapy in an inpatient setting, Acute PT will continue to follow Patient was left in the chair at end of session with at bedside, call green in reach and all needs met. Handoff communication performed with PAUL Silva. The following Treatments/Interventions were added to this Initial Evaluation session based upon the patient's acute needs identified above & in the assessment section. Gait Training: Patient ambulated 60' using RW with CGA. Gait deviations as noted above. Cueing provided for posture, step length and height, and device management. Therapeutic Activities: Patient completed toilet transfer with min A using horizontal grab bar. He stood 5 minutes x2 trials with max A for darby-care. Kanika Dang PT, DPT [employer] Preferred * Initial Ludwig - Char Lara CCC-PUMP AND BLOWER OPERATOR - 01/22/2023 9:50 AM EDT CLINICAL SWALLOW EVALUATION (CSE) [facility] Name: Raghu Rosenthal Date of Evaluation: 01/22/2023 Study #: 1 Reason for Exam: Assess swallow ability per MD request. RN provided verbal clearance for PUMP AND BLOWER OPERATOR to administer session. DIAGNOSTIC IMPRESSIONS: Pt is at an increased [...] arise. JULIA Conn and MD Mcghee notified. Outcome Tools: AM-PAC Cognitive Raw Score: 19 AM-PAC Cognitive t-score: 39.77 RECOMMENDATION: Diet Consistency: (MD to specify other dietary restrictions) Regular diet All levels of liquids Medications: One pill at a time; administer with thin liquid Further Evaluations: Instrumental evaluation not indicated at this time Speech-Language Cognitive-Communicative Evaluation requested on this date. Other Recommendations: Frequent oral care Nursing to monitor all oral intake and make strict NPO if signs/symptoms of aspiration appear. Pertinent History: Per H&P by Surekha Silver on 01/21/23, Pt is a 77yrs year old Male with history significant for CAD s/p CABG x2, hypertension, hyperlipidemia, TAVR 01/[address] Shannon Davison, HFrEF who was transferred from inpatient rehab to the hospital for altered mental status that began overnight Patient recently hospitalized for respiratory failure and treated for cardiogenic shock, NSTEMI. Underwent right and left heart cath showed severe three-vessel disease and severely degenerated bioprosthetic aortic valve requiring replacement of placement. Pt also had pacemaker placement during that hospitalization Today, patient was noted to be more agitated, unable to follow simple commands. Patient transferredto hospital for further evaluation Cardiology was called yesterday due to concern for abdominal pulsation palpable in the left upper quadrant and visible when patient sitting up in bed. Recommended ultrasound which showed splenomegaly. Recommended if hemoglobin dropped, to do CT abdomen and pelvis CT head done yesterday as well showed no evidence of acute intracranial hemorrhage or acute abnormalities. Patient is seen today. Sleepy. Not following commands. Altered. at bedside who is Primarily the historian. States patient has been having fluctuation in mentation since his last hospitalization.Within the past 2 days, patient has gotten even more altered. More groggy. Acting a bit weird. Patient not using CPAP at night. Denies patient having fevers, chills. Patient has not had a good bowel movement in a while. Denies patient having headache, weakness, changes in vision. No urinary symptoms that she knows about Per IPR, patient was noted to have new onset slurred speech, right-sided tongue deviation and right-sided weakness. Subjective: Pt was encountered upright in bed for PUMP AND BLOWER OPERATOR session with present. Pt able to state first name, last name, date of , and age. Pt was informed of the reason for visit and was agreeable to the evaluation. Prior to admission, pt reported tolerating a regular diet with all level liquids. Respiratory: Per most recent ETHYLBENZENE CONVERTER HELPER note (01/08/2023), Extubated to 6lpm NC without issues Patient intubated: 01/08/2023 and extubated same day for surgery Speech-Language Pathology Summary: The patient is not familiar to our service. PERTINENT RADIOLOGIC EXAMS (See EMR for full report.) CT HEAD W/O IV CONTRAST Addendum Date: 01/21/2023 Addendum to correct a dictation error within the original report. 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 The current exam does not demonstrate evidence of an acute infarct as stated in the original impression. XRAY CHEST 1 VIEW Result Date 01/14/23 IMPRESSION: Improving right upper lobe and left basilar pulmonary opacities. This report was dictated by Lan Hammond M.D. CTA CHEST W & WO IV CONTRAST DATE 12/30/2022 IMPRESSION: 1. Mildly enlarged heart. Diffuse coronary artery atherosclerosis status post coronary artery bypass. Previous aortic valve repair. 2. There is aortic and iliac atherosclerosis without evidence of aneurysm or significant aortoiliacstenosis. There is mild to moderate stenosis at the origin of the SMA and suspected chronic right renal artery stenosis with some asymmetric right renal atrophy. 3. Minimal pleural effusions and dependent atelectasis bilaterally. Emphysema and predominantly right sided alveolar and groundglass pulmonary opacities suspected to reflect asymmetric edema in this setting. 4. More focal groundglass nodule within the right upper lobe measuring 13 mm. Fleischner Criteria: Greater than 8mm ground-glass single pulmonary nodule. Recommend chest CT in 6 to 12 months. 5. Few suspected renal cysts and bilateral indeterminate hyperdense renal lesions which may be complex cysts though small solid lesions not excluded. Follow-up dedicated pre and postcontrast renal imaging recommended. 6. Cholelithiasis. 7. Diverticulosis. Partial colectomy. 8. Bilateral hip arthroplasty. Findings discussed with Dr. Engle. Past Medical History: Diagnosis Date Acid reflux Coronary artery disease COVID Diabetes (CMS/HCC) Diverticulitis Diverticulitis Hyperlipidemia Hypertension NSTEMI (non-ST elevated myocardial infarction) (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 Left cerebellar Subarachnoid hemorrhage ([facility]) Subdural hematoma ([facility]) Past Surgical History: Procedure Laterality Date Left Main Stent Placement Left 01/08/2023 Performed by Tania Hartley [place] [facility] REPLACEMENT, AORTIC VALVE, TRANSCATHETER, FEMORAL APPROACH ([employer] 26 ELSA); Intraoperative Echocardiogram Left 01/08/2023 Performed by Tania Hartley MD at [facility] [facility] [place] - COLOSTOMY Then had reverse colostomy [place] - CORONARY ARTERY BYPASS GRAFT [place] - HIP REPLACEMENT Left Total [place] - PACEMAKER [place] - REPLACEMENT OF AORTIC VALVE porcine Problem List (Physician/Prescriber generated effective date of this evaluation): Principal Problem: AMS (altered mental status) (01/21/2023) Current Diet: NPO Level of Alertness/Responsiveness: was alert and responsive. Communication Status: Signs/symptoms of impaired cognitive-communicative skills characterized by: Responses/Behavior indicative of confusion/disorientation Ability to follow simple 1 step commands is: Consistent, with minimal verbal cues Response quality is: Consistent, Prompt, and Verbal Answers all questions verbally. Vocal Quality is WFL. Oral Motor Ability: Labial Control: Intact No overt asymmetry noted. Lingual Control: Intact. No overt asymmetry noted. Dental Status: Intact with natural dentition. Oral Sensation: Intact based on clinical observation during PO trials. Velar Movement: Intact . Abnormal Observations at Baseline: 3L O2 via nasal cannula . Observations of Swallow Without Bolus Presentation: Intact. Observations of Swallow With Bolus Presentation: The patient was given: *Ice chips 1 boluses ice chips via spoon *Thin Liquid (Water) 10 ounces by cup, straw, consecutive cup and consecutive straw *Puree (Applesauce) 3 oz by spoon *Solid (Simon cracker) 4 boluses The patient exhibited no signs and symptoms of oral difficulty and no signs and symptoms of impaired pharyngeal swallowing. Impairments noted: No overt signs or symptoms of aspiration detected. PAIN: Pain Assessment: No/denies pain Patient Acceptable Pain Goal: 0-4 Pain Intensity Numbers Scale: 0 - No Pain PLAN: See above recommendations. Skilled intervention not warranted to address dysphagia. Recommend cognitive evaluation as concerned patient has not returned to baseline. NOMS Functional Communication Measures Swallowing: Level 7 EDUCATION: The evaluation was discussed with Patient, Family, Physician, and Nursing. All questionsanswered at this time. Char Lara MS, CCC-PUMP AND BLOWER OPERATOR Available via [employer] * Initial Nakiaal - Jacy Albright L - 01/21/2023 4:39 PM EDT [facility] Case Management Assessment Patient Name: Raghu Rosenthal : 1945 Age: 77yrs MEG: [id number] Admit Date: 01/21/2023 Room: [place] [address] Attending Provider: Surekha Silver, * Primary Care Provider: Williams Yip MD Last Admission: ED Chief Complaint: No chief complaint on file. Reason for Consult/Assessment: Routine Assessment There are no questions and answers to display. Principal Problem: AMS (altered mental status) Advance Directives: Advance Directive/Healthcare Power of Suede Brusher Advance Directive/Living Will: No, declined Health Care Power of Suede Brusher: No, declined Source of Information: Chart Review, Spouse This patient's decision maker is: Self Family/Support system: Living Arrangements: Spouse/significant other Support Systems: Spouse/significant other, Children Type of Residence: Private residence Support Name: Cathy Rosenthal () Support Phone Number: [phone] Verbal Permission Given to Contact?: Yes [employer] Is an student life coordinator needed/used?: No Need for family participation in patient care?: yes, patient's present at bedside EVAPORATOR OPERATOR MOLASSES services/supplies/DME: Established Respiratory Supplies: CIPAP Machine Home Care Services: No Any history of, or current mental health diagnosis?: No Current Mental/Functional Status: Patient's mental status at this time is:: Unresponsive/minimally responsive. Is your home accessible given your current medical needs?: Yes One or more falls in the last year:: Yes Feels unsteady when walking:: Yes Worried about falling:: Yes Custody and guardianship issues/APS/CPS (including abuse/ neglect issues): none Payor source/ needs: Primary: Payor: MEDICARE / Plan: MEDICARE PART A & B / Product Type: Medicare / Secondary: [employer] Insight into what may contribute to a readmission: Treatment / Complication, High-Readmission Risk Anticipated Discharge Plan: Assistance Needed: TBD Method of Obtaining Prescription Medications After Discharge: Medicare Part D, Private Insurance Method of Obtaining Follow Up Care After Discharge: PCP Means of reaching the discharge destination:: Family/Friends Does the patient need discharge transport arranged?: No Insight into what may contribute to Readmission: Treatment / Complication, High- Readmission Risk How will this patient obtain prescription medications at discharge? Medicare Part D, Private Insurance How will this patient obtain follow up care after discharge? PCP I have discussed the discharge plan with the patient/ family, who understand and agree. Discharge Planning and Psychosocial Summary: Patient admitted [facility] 01[facility]21 with AMS Patient: has a past medical history of Acid reflux, Coronary artery disease, COVID, Diabetes (CMS/HCC), Diverticulitis, Diverticulitis, Hyperlipidemia, Hypertension, NSTEMI (non-ST elevated myocardial infarction) (CMS/HCC) (12/28/2022), Pacemaker (01/12/2023), Psoriasis, Stroke (CMS/HCC), Subarachnoid hemorrhage (CMS/HCC), and Subdural hematoma (CMS/[facility]). RNCM met with patient and his Cathy at bedside to discuss discharge needs and to confirm demographic information RNCM introduced self, patient in agreement to speaking with this principal technical writer today HCPOA/Advance Directive: no, patient declined Patient and his are from [place] and has been vacationing in [place] for 3 months. The couple has 3 adult daughters, all residing in [place]. 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 EVAPORATOR OPERATOR MOLASSES patient was independent of ADL's, ambulatory, driving, and deniesany falls. Patient has PMH of PTSD, [facility]. Per chart review patient recently admitted 12/28 and discharged to [facility] 01/19, now readmitted back 01/21 to hospital unit. This places him at highrisk for readmission. DME: [employer] ([employer]) H/H: none EVAPORATOR OPERATOR MOLASSES PCP: Williams Yip MD. Dr. Michael Mckenzie at the [facility] in [place], [place]; Insurance: Medicare Part A/B. Secondary Payor: [facility] Uses [employer] and [employer] technologies Pharmacy Prescription Drug Coverage: yes, no issues obtaining medications Emergency Contact: Cathy Rosenthal, patient's Plan to return home at D/C Patient's will provide care and transportation at D/C No needs expressed at this time EDOD: 01/25 RNCM will follow pt as he progresses toward discharge and make referrals as appropriate for discharge planning Jacy Albright MSN, RN- Inpatient Case Management Weekend Nurse [employer] Plant Worker ([facility]) [facility] email: [email or web address] For Case Management assistance Sunday through Sunday, Weekends or Holidays 8:30 am-5:00 pm, please page [phone] pager [phone]. For Case Management assistance after 5:00 pm, please call [phone] Jacy Albright 01/21/2023 documented in this encounter Admitting Diagnoses Diagnosis AMS (altered mental status) documented in this encounter Administered Medications Inactive Administered Medications - up to 3 most recent administrations Medication Order MAR Action Action Date Dose Rate Site acetaminophen (TYLENOL) tablet 650 mg 650 mg, Oral, EVERY 6 HOURS NEEDED, Fever, Pain, Starting on Sun01/23/23 at 1613, For 365 days $ Given 01/24/2023 9:00 AM EDT 650 mg $ Given 01/23/2023 11:46 PM EDT 650 mg $ Given 01/23/2023 4:20 PM EDT 650 mg aspirin EC tablet 81 mg 81 mg, Oral, DAILY, First dose on Sun01/21/23 at 1500, For 365 days, Do NOT open, crush, break, or chew. Give with food and a full glass of water to reduce GI upset. $ Given 01/26/2023 8:46 AM EDT 81 m g $ Given 01/25/2023 9:54 AM EDT 81 mg $ Given 01/24/2023 8:55 AM EDT 81 mg clopidogreL (PLAVIX) tablet 75 mg 75 mg, Oral, DAILY, First dose on Sun01/22/23 at 1000, For 365 days $ Given 01/26/2023 8:44 AM EDT 75 mg $ Given 01/25/2023 9:54 AM EDT 75 mg $ Given 01/24/2023 8:55 AM EDT 75 mg docusate sodium (COLACE) capsule 100 mg 100 mg, Oral, DAILY NEEDED, Constipation, Starting on Sun01/21/23 at 1452, For 365 days $ Given 01/22/2023 8:01 PM EDT 100 mg docusate sodium (COLACE) capsule 100 mg 100 mg, Oral, TWICE A DAY, First dose on Sun01/23/23 at 2200, For 365 days $ Given 01/26/2023 8:45 AM EDT 100 mg $ Given 01/25/2023 9:33 PM EDT 100 mg $ Given 01/25/2023 9:54 AM EDT 100 mg enoxaparin (LOVENOX) 40 mg/0.4 mL injection 40 mg 40 mg, Subcutaneous, EVERY 24 HOURS, First dose on Sun01/21/23 at 1500, For 365 days, Inject at a 90 [...] scheduling patients for spinal procedures. $ Given 01/26/2023 4:11 PM EDT 40 mg Abdominal Tissue $ Given 01/25/2023 3:12 PM EDT 40 mg Ab dominal Tissue $ Given 01/24/2023 3:00 PM EDT 40 mg Ab dominal Tissue escitalopram (LEXAPRO) tablet 20 mg 20 mg, Oral, DAILY, First dose on Sun01/21/23 at 1500, For 365 days, Fall Risk Medication $ Given 01/26/2023 8:45 AM EDT 20 mg $ Given 01/25/2023 9:53 AM EDT 20 mg $ Given 01/24/2023 8:55 AM EDT 20 mg evolocumab (REPATHA RICARDOICK) pen 140 mg 140 mg, Subcutaneous, EVERY 2 WEEKS, First dose (after last modification) on Sun02/02/23 at 1000, For 365 days, This medication is non-formulary. Please verify patient has own supply or can have it brought in. Must be ID'd and verified by pharmacy prior to use. If patient unable to provide, please notify pharmacy., Therapeutic Interchange Response: Pharmacy to implement System P&T approved Therapeutic Interchange (if available) gabapentin (NEURONTIN) capsule 100 mg 100 mg, Oral, AT BEDTIME, First dose on Sun01/21/23 at 2200, For 365 days, Fall Risk Medication $ Given 01/25/2023 9:32 PM EDT 100 mg $ Given 01/24/2023 9:15 PM EDT 100 mg insulin lispro (HumaLOG) 100 units/mL sensitivity factor injection Subcutaneous, THREE TIMES A DAY WITH MEALS, First dose on Sun01/21/23 at 1800, For 365 days, Document administration site. Give this correctional (sensitivity factor) insulin at the calculated dose even if the patient does not eat or is NPO., Target Glucose Value (mg/dL): 130, Insulin Sensitivity Factor: 30 $ Given 01/24/2023 12:41 PM EDT 1 Units Abdominal Tissue metoprolol succinate XL (TOPROL-XL) 24 hr tablet 25 mg 25 mg, Oral, DAILY, First dose on Sun01/22/23 at 1000, For 365 days, Do NOT crush or chew. May break in half. Hold if BP <100/60 and or HR <60 $ Given 01/26/2023 8:45 AM EDT 25 mg $ Given 01/25/2023 9:53 AM EDT 25 mg $ Given 01/24/2023 8:55 AM EDT 25 mg ondansetron (ZOFRAN) injection 4 mg 4 mg (0.0355 mg/kg), Intravenous, EVERY 6 HOURS NEEDED, Nausea, Vomiting, Starting on Sun01/21/23 at 1452, For 30 days, Doses 4 mg or less can be administered IV push over 3-5 minutes. Doses over 4 mg should be diluted and infused over 15 minutes. $ Given 01/23/2023 1:01 AM EDT 4 mg oxyCODONE (ROXICODONE) immediate release tablet 5 mg 5 mg, Oral, EVERY 4 HOURS NEEDED, Severe Pain, Unrelieved Pain, Starting on Sun01/24/23 at 0930, For 365 days, FALL RISK MEDICATION. $ Given 01/26/2023 8:45 AM EDT 5 mg $ Given 01/25/2023 7:32 PM EDT 5 mg $ Given 01/25/2023 3:12 PM EDT 5 mg perflutren lipid microsphere (DEFINITY) 10 mL injection 1.43 mg, Intravenous, RAD ONCE, Other, Starting on Sun01/23/23 at 1443, For 1 day, Dilute 1.3 mL of perflutren lipid microspheres with 8.7 mL of sodium chloride and slowly administer as needed for visualization. $ Given 01/23/2023 2:35 PM EDT 2 mL potassium chloride (KLOR-CON M20) CR tablet 40 mEq 40 mEq, Oral, DAILY, First dose on Sun01/22/23 at 1000, For 30 days, To suspend: * Place [...] water, swirl, and administer immediately. $ Given 01/26/2023 8:46 AM EDT 40 mEq $ Given 01/25/2023 9:57 AM EDT 40 mEq $ Given 01/24/2023 8:55 AM EDT 40 mEq potassium, sodium phosphates (PHOS-NAK) 280-160-250 mg packet 1 Packet 1 Packet, Oral, THREE TIMES A DAY WITH MEALS, First dose on Sun01/21/23 at 1800, For 3 doses, Use for Neutra-Phos. Dissolve in 90 mL water, stir well and drink promptly. $ Given 01/22/2023 12:38 PM EDT 1 Packet $ Given 01/22/2023 9:12 AM EDT 1 Packet senna (SENOKOT) tablet 1 Tablet 1 Tablet, Oral, EVERY EVENING, First dose on Sun01/23/23 at 2200, For 365 days, 1 tablet = 8.6 mg Sennosides is equivalent to 187 mg of Senokot. $ Given 01/25/2023 9:33 PM EDT 1 Tablet $ Given 01/24/2023 9:15 PM EDT 1 Tablet $ Given 01/23/2023 9:58 PM EDT 1 Tablet simethicone (MYLICON) chewable tablet 80 mg 80 mg, Oral, EVERY 6 HOURS NEEDED, Gas, Starting on Sun01/23/23 at 1546, For 365 days $ Given 01/23/2023 3:59 PM EDT 80 mg sodium chloride 0.9 % bolus 500 mL 500 mL (4.11 mL/kg), Intravenous, Administer over 6 Hours, ONCE, On Sun01/24/23 at 0805, For 1 dose $ New Bag/Syringe 01/24/2023 8:56 AM EDT 500 mL sodium chloride 0.9 % flush 3 mL 3 mL, Intravenous, EVERY 8 HOURS, First dose on Sun01/21/23 at 1500, For 30 days, Aspirate lock to ensure patency; flush with 3 ml of NaCl. If a medication is administered, flush before and after administration. $ Given 01/26/2023 2:00 PM EDT 3 mL $ Given 01/26/2023 4:57 AM EDT 3 mL $ Given 01/25/2023 9:33 PM EDT 3 mL spironolactone (ALDACTONE) tablet 25 mg 25 mg, Oral, DAILY, First dose on Sun01/21/23 at 1500, For 365 days, Fall Risk Medication $ Given 01/26/2023 8:46 AM EDT 25 mg $ Given 01/25/2023 9:53 AM EDT 25 mg $ Given 01/24/2023 8:55 AM EDT 25 mg tiotropium (SPIRIVA) 18 mcg per inhalation capsule 1 Capsule 1 Capsule, Inhalation, RT DAILY, First dose on Sun01/21/23 at 1500, For 365 days, RESPIRATORY to administer. *Do NOT give capsule orally. For INHALATION ONLY.* Remove capsule from blister pack immediately before use. Capsules not used immediately should be discarded. Peel back the printed foil until you see the whole capsule. $ Given 01/26/2023 8:50 AM EDT 1 Capsule $ Given 01/25/2023 9:54 AM EDT 1 Capsule $ Given 01/24/2023 8:59 AM EDT 1 Capsule tiotropium bromide (SPIRIVA RESPIMAT) 2.5 mcg/actuation inhaler 2 Inhalation 2 Inhalation , Inhalation, RT DAILY, First dose on Sun01/27/23 at 1000, For 365 days, RESPIRATORY to administer. torsemide (DEMADEX) tablet 60 mg 60 mg, Oral, TWICE A DAY DIURETICS, First dose on Sun01/21/23 at 1600, For 30 doses $ Given 01/26/2023 4:11 PM EDT 60 mg $ Given 01/26/2023 4:59 AM EDT 60 mg $ Given 01/25/2023 3:11 PM EDT 60 mg traZODone (DESYREL) tablet 50 mg 50 mg, Oral, EVERY EVENING, First dose on 01/21/23 at 2200, For 365 days, Fall Risk Medication $ Given 01/25/2023 9:33 PM EDT 50 mg $ Given 01/24/2023 9:15 PM EDT 50 mg documented in this encounter Active and Recently Administered Medications Times are shown in EDT. Scheduled Medication Order 01/24/2023 01/25/2023 01/26/2023 aspirin EC tablet 81 mg 81 mg, Oral, DAILY, First dose on Sun01/21/23 at 1500, For 365 days, Do NOT open, crush, break, or chew. Give with food and a full glass of water to reduce GI upset. 0855 ($ Given - Provider: Sejal Starr RN) 0954 ($ Given - Provider: Sejal Starr RN) 0846 ($ Given - Provider: Chayito Danielson, JULIA) clopidogreL (PLAVIX) tablet 75 mg 75 mg, Oral, DAILY, First dose on Sun01/22/23 at 1000, For 365 days 0855 ($ Given - Provider: Sejal Starr RN) 0954 ($ Given - Provider: Sejal Starr RN) 0844 ($ Given - Provider: Chayito Danielson, JULIA) docusate sodium (COLACE) capsule 100 mg 100 mg, Oral, TWICE A DAY, First dose on Sun01/23/23 at 2200, For 365 days 0856 ($ Given - Provider: Sejal Starr RN)2115 ($ Given - Provider: Priscilla Cruz, JULIA) 0954 ($ Given - Provider: Sejal Starr RN)2133 ($ Given - Provider: Priscilla Cruz RN) 0845 ($ Given - Provider: Chayito Danielson, JULIA) enoxaparin (LOVENOX) 40 mg/0.4 mL injection 40 mg 40 mg, Subcutaneous, EVERY 24 HOURS, First dose on Sun01/21/23 at 1500, For 365 days, Inject at a 90 [...] risks when scheduling patients for spinal procedures. 1500 ($ Given - Provider: Sejal Starr RN) 1512 ($ Given - Provider: Sejal Starr RN) 1611 ($ Given - Provider: Chayito Danielsno RN) escitalopram (LEXAPRO) tablet 20 mg 20 mg, Oral, DAILY, First dose on Sun01/21/23 at 1500, For 365 days, Fall Risk Medication 0855 ($ Given - Provider: Sejal Starr RN) 0953 ($ Given - Provider: Sejal Starr RN) 0845 ($ Given - Provider: Chayito Danielson RN) evolocumab (REPATHA SURECLICK) pen 140 mg 140 mg, Subcutaneous, EVERY 2 WEEKS, First dose (after last modification) on Sun02/02/23 at 1000, For 365 days, This medication is non-formulary. Please verify patient has own supply or can have it brought in. Must be ID'd and verified by pharmacy prior to use. If patient unable to provide, please notify pharmacy., Therapeutic Interchange Response: Pharmacy to implement System P&T approved Therapeutic Interchange (if available) gabapentin (NEURONTIN) capsule 100 mg 100 mg, Oral, AT BEDTIME, First dose on Sun01/21/23 at 2200, For 365 days, Fall Risk Medication 0928 (Unheld by Provider - Provider: Karuna Head MD)2114 ($ Given - Provider: Priscilla Cruz RN) 213 ($ Given - Provider: Priscilla Cruz RN) insulin lispro (HumaLOG) 100 units/mL sensitivity factor injection Subcutaneous, THREE TIMES A DAY WITH MEALS, First dose on Sun01/21/23 at 1800, For 365 days, Document administration site. Give this correctional (sensitivity factor) insulin at the calculated dose even if the patient does not eat or is NPO., Target Glucose Value (mg/dL): 130, Insulin Sensitivity Factor: 30 0730 (Not Given - Provider: Sejal Starr RN - Reason: Other (See Comment) - Comment: ss)1241 ($ Given - Provider: Sejal Starr RN)1643 (Not Given - Provider: Sejal Starr RN - Reason: Other (See Comment) - Comment: ss) 0813 (Not Given - Provider: Sejal Starr RN - Reason: Other (See Comment) - Comment: ss)1217 (Not Given - Provider: Sejal Starr RN - Reason: Other (See Comment) - Comment: ss)1715 (Not Given - Provider: Sejal Starr RN - Reason: Other (See Comment) - Comment: ss) 0800 (Not Given - Provider: hCayito Danielson RN - Reason: Contraindicated - Comment: BG 97)1200 (Not Given - Provider: Chayito Danielson RN - Reason: Contraindicated - Comment: BG 125) metoprolol succinate XL (TOPROL-XL) 24 hr tablet 25 mg 25 mg, Oral, DAILY, First dose on Sun01/22/23 at 1000, For 365 days, Do NOT crush or chew. May break in half. Hold if BP <100/60 and or HR <60 0855 ($ Given - Provider: Sejal Starr RN) 0953 ($ Given - Provider: Sejal Starr RN) 0845 ($ Given - Provider: Chayito Danielson RN) potassium chloride (KLOR-CON M20) CR tablet 40 mEq 40 mEq, Oral, DAILY, First dose on Sun01/22/23 at 1000, For 30 days, To suspend: * Place [...] mL of water, swirl, and administer immediately. 0855 ($ Given - Provider: Sejal Starr RN) 0957 ($ Given - Provider: Sejal Starr, JULIA) 0846 ($ Given - Provider: Chayito Danielson, JULIA) senna (SENOKOT) tablet 1 Tablet 1 Tablet, Oral, EVERY EVENING, First dose on Sun01/23/23 at 2200, For 365 days, 1 tablet = 8.6 mg Sennosides is equivalent to 187 mg of Senokot. 2115 ($ Given - Provider: Priscilla Cruz RN) 2133 ($ Given - Provider: Priscilla Cruz RN) sodium chloride 0.9 % bolus 500 mL (COMPLETED) 500 mL (4.11 mL/kg), Intravenous, Administer over 6 Hours, ONCE, On Sun01/24/23 at 0805, For 1 dose 0856 ($ New Bag/Syringe - Provider: Sejal Starr RN)1456 (Stopped - Provider: Sejal Starr RN) sodium chloride 0.9 % flush 3 mL 3 mL, Intravenous, EVERY 8 HOURS, First dose on Sun01/21/23 at 1500, For 30 days, Aspirate lock to ensure patency; flush with 3 ml of NaCl. If a medication is administered, flush before and after administration. 0545 ($ Given - Provider: Skylar Hernandez RN)1501 ($ Given - Provider: Sejal Starr RN)2117 ($ Given - Provider: Priscilla Cruz, JULIA) 0456 ($ Given - Provider: Priscilla Cruz, JULIA)1400 (Override Completed - Provider: Sejal Starr RN)2133 ($ Given - Provider: Priscilla Cruz, JULIA) 0457 ($ Given - Provider: Priscilla Cruz, JULIA)1400 ($ Given - Provider: Chayito Danielson, JULIA) spironolactone (ALDACTONE) tablet 25 mg 25 mg, Oral, DAILY, First dose on Sun01/21/23 at 1500, For 365 days, Fall Risk Medication 0855 ($ Given - Provider: Sejal Starr RN) 0953 ($ Given - Provider: Sejal Starr, JULIA) 0846 ($ Given - Provider: Chayito Danielson, JULIA) tiotropium (SPIRIVA) 18 mcg per inhalation capsule 1 Capsule (CANCELED)(Linked Group 1) 1 Capsule, Inhalation, RT DAILY, First dose on 01/21/23 at 1500, For 365 days, RESPIRATORY to administer. *Do NOT give capsule orally. For INHALATION ONLY.* Remove capsule from blister pack immediately before use. Capsules not used immediately should be discarded. Peel back the printed foil until you see the whole capsule. 0859 ($ Given - Provider: Sejal Starr RN) 0954 ($ Given - Provider: Sejal Starr RN) 0850 ($ Given - Provider: Chayito Danielson, JULIA) tiotropium bromide (SPIRIVA RESPIMAT) 2.5 mcg/actuation inhaler 2 Inhalation(Linked Group 2) 2 Inhalation , Inhalation, RT DAILY, First dose on 01/27/23 at 1000, For 365 days, RESPIRATORY to administer. torsemide (DEMADEX) tablet 60 mg 60 mg, Oral, TWICE A DAY DIURETICS, First dose on 01/21/23 at 1600, For 30 doses 0545 ($ Given - Provider: Skylar Hernandez RN)1500 ($ Given - Provider: Sejal Starr RN) 0456 ($ Given - Provider: Priscilla Cruz, JULIA)1511 ($ Given - Provider: Sejal Starr RN) 0459 ($ Given - Provider: Priscilla Cruz, JULIA)1611 ($ Given - Provider: Chayito Danielson, JULIA) traZODone (DESYREL) tablet 50 mg 50 mg, Oral, EVERY EVENING, First dose on 01/21/23 at 2200, For 365 days, Fall Risk Medication 0928 (Unheld by Provider - Provider: Karuna Head MD)211 ($ Given - Provider: Priscilla Cruz, JULIA) 213 ($ Given - Provider: Priscilla Cruz, RN) PRN Medication Order 01/24/2023 01/25/2023 01/26/2023 acetaminophen (TYLENOL) tablet 650 mg 650 mg, Oral, EVERY 6 HOURS NEEDED, Fever, Pain, Starting on Sun01/23/23 at 1613, For 365 days 0900 ($ Given - Provider: Sejal Starr RN) dextrose (DIABETIC USE) 40 % oral gel 6 g glucose 6 g glucose (15 g), Oral, NEEDED, Hypoglycemia, hypoglycemia-preferred method of treating hypoglycemia, Starting on Sun01/21/23 at 1452, For 30 days, 37.5 g of Oral Gel = 15 g of glucose. dextrose 50% in water (D50W) injection 25 mL 25 mL, Intravenous, NEEDED, Hypoglycemia, Blood glucose 55-69 mg/dL--for unresponsive, altered mental status, seizures, or NPO status, Starting on Sun01/21/23 at 1452, For 365 days dextrose 50% in water (D50W) injection 50 mL 50 mL, Intravenous, NEEDED, Hypoglycemia, Blood glucose 54 mg/dL or less--for unresponsive, altered mental status, seizures, or NPO status, Starting on Sun01/21/23 at 1452, For 365 days docusate sodium (COLACE) capsule 100 mg 100 mg, Oral, DAILY NEEDED, Constipation, Starting on Sun01/21/23 at 1452, For 365 days hydrALAZINE (APRESOLINE) tablet 25 mg 25 mg, Oral, EVERY 8 HOURS NEEDED, PRN use for SBP > 180 or DBP > 110, Starting on Sun01/21/23 at 1454, For 365 days ondansetron (ZOFRAN) injection 4 mg 4 mg (0.0355 mg/kg), Intravenous, EVERY 6 HOURS NEEDED, Nausea, Vomiting, Starting on Sun01/21/23 at 1452, For 30 days, Doses 4 mg or less can be administered IV push over 3-5 minutes. Doses over 4 mg should be diluted and infused over 15 minutes. oxyCODONE (ROXICODONE) immediate release tablet 5 mg 5 mg, Oral, EVERY 4 HOURS NEEDED, Severe Pain, Unrelieved Pain, Starting on Sun01/24/23 at 0930, For 365 days, FALL RISK MEDICATION. 1501 ($ Given - Provider: Sejal Starr RN)2115 ($ Given - Provider: Priscilla Cruz RN) 1512 ($ Given - Provider: Sejal Starr, JULIA)1932 ($ Given - Provider: Priscilla Cruz, JULIA) 0845 ($ Given - Provider: Chayito Danielson RN) simethicone (MYLICON) chewable tablet 80 mg 80 mg, Oral, EVERY 6 HOURS NEEDED, Gas, Starting on Sun01/23/23 at 1546, For 365 days Linked Groups Order Group 1: tiotropium (SPIRIVA) 18 mcg per inhalation capsule 1 Capsule (CANCELED)Jump to med 1 Capsule, Inhalation, RT DAILY, First dose on 01/21/23 at 1500, For 365 days, RESPIRATORY to administer. *Do NOT give capsule orally. For INHALATION ONLY.* Remove capsule from blister pack immediately before use. Capsules not used immediately should be discarded. Peel back the printed foil until you see the whole capsule. And Administration, Evaluation and Education of MDI or DPI by Respiratory Therapy as Ordered (COMPLETED) ORDERED - RT ONLY, Starting on 01/21/23 at 1453, Until Specified, Routine Group 2: tiotropium bromide (SPIRIVA RESPIMAT) 2.5 mcg/actuation inhaler 2 InhalationJump to med 2 Inhalation , Inhalation, RT DAILY, First dose on 01/27/23 at 1000, For 365 days, RESPIRATORY to administer. And Administration, Evaluation and Education of MDI or DPI by Respiratory Therapy as Ordered (CANCELED) ORDERED - RT ONLY, Starting on Sun01/26/23 at 0911, Until Specified, Routine documented in this encounter Care Teams Credit Analysis Manager Relationship Specialty Start Date End Date Williams Yip MD [address] [place] [id number] PCP - General Cardiology 12/29/22 Nela Trejo [address] [place] [address] 01/02/23 documented as of this encounter Additional [...] prosecute any alcohol or drug abuse patient. [facility]
--- OUTSIDE RECORDS SUMMARY | 2024-09-23 14:16 | XMS_ITS | Encounter Summary ---
Author Organization [employer] ([employer] Address [address] [place] [address] Care Team Providers Care Pugger Helper Name Role Phone Williams Yip MD Primary Care Provider [phone] Nela Trejo Unavailable Unavailable Encounter Details Date Type Department Care Team (Late st Contact Info) Description 02/05/2023 Miscellaneous [facility] [place] [facility] Physicians [address] [place] [id number] Mary Valentin, [address] [place] [address] Social History Tobacco Use Types Packs/Day Years Used Date Smoking Tobacco: Former Cigarettes Smokeless Tobacco: Never PHQ-2 Answer Date Recorded PHQ Total Score 0 01/27/2023 PRAPARE - Transportation Answer Date Re corded In the past 12 months, has l ack of transportation kept you from medical appointments or from getting medications? No 0 02/2023 In the past 12 months, has [...] as of this encounter Progress Notes * Mary Valentin RN - 02/05/2023 3:54 PM EDT 30 days after Surgery [facility] Heart Failure Questionnaire (CQ-12) The following questions refer to your heart failure and how it may affect your life. Please read and complete the following questions. There are no right or wrong answers. Please yennifer the answer thatbest applies to you. Heart failure affects different people in different ways. Some feel shortness of breath while others feel fatigue. Please indicate how much you are limited by heart failure (shortness of breath or fatigue) in your ability to do the following activities over the past 2 weeks. Activity Extremely Limited Quite a bit Limited Moderately Limited Slightly Limited Not at all Limited Limited for other reasons or did not do the activity Showering/bathing O O O O O X Walking 1 block on level ground O O O O O X Hurrying or jogging (as if to catch a bus) O O O O O X Over the past 2 weeks, how many times did you have swelling in your feet, ankles or legs when you woke up in the morning? Every morning 3 or more times per week but not every day 1-2 times per week Less than once a week Never over the past 2 weeks O O O O X Over the past 2 weeks, on average, how many times has fatigue limited your ability to do what you wanted? All of the time Several times per day At least once a day 3 or more times per week but not every day 1-2 times per week Less than once a week Never over the past 2 weeks O O O X O O O Over the past 2 weeks, on average, how many times has shortness of breath limited your ability to do what you wanted? All of the time Several times per day At least once a day 3 or more times per week but not every day 1-2 times per week Less than once a week Never over the past 2 weeks X O O O O O O Over the past 2 weeks, on average, how many times have you been forced to sleep sitting up in a chair or with at least 3 pillows to prop you up because of shortness of breath? Every night 3 or more times per week but not every day 1-2 times per week Less than once a week Never over the past 2 weeks X O O O O Over the past 2 weeks, how much has your heart failure limited your enjoyment of life? It has extremely limited my enjoyment of life It has limited my enjoyment of life quite a bit It has moderately limited my enjoyment of life It has slightly limited my enjoyment of life It has not limited my enjoyment of life at all O X O O O If you had to spend the rest of your life with your heart failure the way it is right now, how would you feel about this? Not at all satisfied Mostly dissatisfied Somewhat satisfied Mostly satisfied Completely satisfied X O O O O How much does your heart failure affect your lifestyle? Please indicate how your heart failure may have limited your participation in the following activities over the past 2 weeks. 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 Visiting family or friends out of your home O O O O O X documented in this encounter Plan of Treatment Not on file documented as of this encounter Visit Diagnoses Not on filedocumented in this encounter Additional Health Concerns Assessment Noted Time PHQ-9 Depression Total Score: 0 01/28/20 23 2:09 PM EDT documented as of this encounter Care Teams Pugger Helper Relationship Specialty Start Date End Date Williams Yip MD [address] [place] [address] PCP - General Cardiology 12/29/22 Nela Trejo [address] [place] [address] 01/02/23 documented as of this encounter Additional [...] prosecute any alcohol or drug abuse patient. [facility] ([facility])
--- OUTSIDE RECORDS SUMMARY | 2024-09-23 14:17 | XMS_ITS | Encounter Summary ---
Author Organization [employer]) Address [address] [place] [address] Care Team Providers Care Waste Reduction Coordinator Name Role Phone Williams Yip MD Primary Care Provider Nela Trejo Unavailable Unavailable Reason for Referral * Evaluation & Treat (Routine) - Closed Specialty Diagnoses / Procedures Referred By Guanaco marie Referred To Contact Cardiopulmonary Diagnoses Carlos Felton MD [address] [place] [address] [facility] [place] [address] Referral ID Status Reason Start Date Expiration Date Visits Re quested Visits Authorized [id number] Closed 12/28/2022 12/29/2023 1 1 Reason for Visit * Inpatient Auth/Cert (Routine) Specialty Diagnoses / Procedures Referred By Guanaco marie Referred To Contact Diagnoses NSTEMI (non-ST elevated myocardial infarction) (CMS/HCC) (CMS-HCC) (CMS/HCC) (CMS-HCC) NSTEMI Referral ID Status Reason Start Date Expiration Date Visits Re quested Visits Authorized [id number] 1 1 Encounter Details Date Type Department Care Team (Latest Contact Info) Description 12/28/2022 1:45 PM EDT - 01/19/2023 4:09 PM EDT Hospital Encounter [facility] - 01/27 CV Cardiac Medicine [address] [facility] [address] [place] [phone] Ko Feliciano DO [address], [address] [place] [id number] Jeyson Richard MD [address] [place] [address] Mikayla Cr MD [address] [place], [place] [phone] Maxwell Smith MD [address] [place] [id number] Anam Winchester MD [address], [address] [place] [address] [phone] Tania Hartley MD [address] [place] [address] Edgard Ludwig DO [address] [place] [address] Abdoluaye Canales MD [address] [place] [address] Tariq Carl MD [address] [place] [address] Discharge Disposition: Discharged/transd to another rehab facility [...] Sign Reading Time Taken Comments Blood Pressure 135/79 01/19/2023 3:20 PM EDT Pulse 92 01/19/2023 3:20 PM EDT Temperature 36.5 ??C (97.7 ??F) 01/19/2023 3:20 PM ED T Respiratory Rate 18 01/19/2023 3:20 PM EDT Oxygen Saturation 98% 01/19/2023 4:00 AM EDT Inhaled Oxygen Concentration - - Weight 112.8 kg (248 lb 11.2 oz) 01/19/2023 4:00 AM EDT Height 175.3 cm (5' 9.02) 12/30/2022 4:00 AM ED T Body Mass Index 36.71 01/18/2023 1:00 PM EDT documented in this encounter Functional Status Functional Status Response Date of Assess ment Are you deaf or do you have serious difficulty h earing? No 12/28/2022 Are you blind or do you have serious difficulty seeing, even when wearing glasses? No 12/28/2022 Do you have serious difficul ty walking or climbing stairs? (5 years old or older) Yes 12/28/2022 Do you have difficulty dress ing or bathing? (5 years old or older) No 12/28/2022 Because of a physical, menta l, or emotional condition, do you have difficulty doing errands alone such as visiting a doctor's office or shopping? (15 years old or older) No 12/28/2022 Cognitive Status Response Date of Assessm ent Because of a physical, menta l, or emotional condition, do you have serious difficulty concentrating, remembering, or making decisions? (5 years old or older) No 12/28/2022 documented as of this encounter Discharge Summaries * Ko Pimentel, - 01/19/2023 1:25 PM EDT Images from the original note were not included. [facility] - Cardiology Teaching Service DISCHARGE SUMMARY Patient Name: Raghu Rosenthal Admit Date: 12/28/2022 : 1945 DISCHARGE DATE: 01/19/23 Length of Stay: 22 days [facility] #: [id number] Attending Physician: Abdoulaye Canales MD CODE STATUS: Full Code PCP: Williams Yip MD HOSPITAL DIAGNOSES Active Hospital Problems Diagnosis Date Noted *01/08/23 TransCatheter Aortic Valve Replacement (Kuvgn-[id number], 26 Medtronic Evolut Pro, via the Left Transfemoral Approach) EF 35% 01/08/2023 CKD (chronic kidney disease) stage 3, GFR 30-59 ml/min ([facility]) 01/09/2023 Hypertension 12/28/2022 Hyperlipidemia 12/28/2022 Coronary artery disease 12/28/2022 Resolved Hospital Problems Diagnosis Date Noted Date Resolved FILIBERTO (acute kidney injury) ([facility]) 01/09/2023 01/19/2023 Pulmonary edema 01/09/2023 01/19/2023 Cardiogenic shock ([facility]) 01/08/2023 01/19/2023 Acute on chronic HFrEF (heart failure with reduced ejection fraction) ([facility]) 01/08/2023 01/19/2023 NSTEMI (non-ST elevated myocardial infarction) ([facility]) 12/28/2022 01/19/2023 Acute coronary syndrome ([facility]) 12/28/2022 01/08/2023 Shock ([facility]) 12/28/2022 01/08/2023 Discharge Diagnosis Active Hospital Problems Diagnosis Date Noted *01/08/23 TransCatheter Aortic Valve Replacement (Bqxyr-zg-Gugzx, 26 Medtronic Evolut Pro, via the Left Transfemoral Approach) EF 35% 01/08/2023 CKD (chronic kidney disease) stage 3, GFR 30-59 ml/min ([facility]) 01/09/2023 Hypertension 12/28/2022 Hyperlipidemia 12/28/2022 Coronary artery disease 12/28/2022 Resolved Hospital Problems Diagnosis Date Resolved FILIBERTO (acute kidney injury) ([facility]) 01/19/2023 Pulmonary edema 01/19/2023 Cardiogenic shock ([facility]) 01/19/2023 Acute on chronic HFrEF (heart failure with reduced ejection fraction) ([facility]) 01/19/2023 NSTEMI (non-ST elevated myocardial infarction) ([facility]) 01/19/2023 Acute coronary syndrome ([facility]) 01/08/2023 Shock ([facility]) 01/08/2023 DISCHARGE FOLLOW-UP APPOINTMENTS: Future Appointments Date Time Provider Department Center 01/20/2023 6:30 AM Anais Mcgovern OTR/L [facility] 01/20/2023 10:00 AM Leigha Warren, PT [facility] 01/20/2023 11:00 AM Anais Mcgovern OTR/L [facility] 01/20/2023 2:00 PM Leigha Warren, PT [facility] 01/22/2023 7:30 AM Anais Mcgovern OTR/L [facility] 01/22/2023 9:00 AM Caryl Barrera, SHAKE SPLITTER [facility] 01/22/2023 10:00 AM Anais Mcgovern OTR/L [facility] 01/22/2023 3:30 PM Christen Shaikh, PT [facility] 01/31/2023 2:20 PM [facility] 02/13/2023 12:15 PM [facility] 02/13/2023 12:30 PM [facility] GRAPH[facility] 2 [facility] 02/13/2023 1:15 PM [facility] XRAY01 [facility] 02/13/2023 1:30 PM Timothy Monroe MD [facility] 04/18/2023 1:00 PM Mathew Johnson RN [facility] Please follow-up with PCP (Williams Yip MD) within 1-2 weeks of discharge from inpatient rehab discharge. Patient to schedule. [facility] messaged to coordinate follow up appointment. RECOMMENDATIONS FOR FOLLOW-UP APPOINTMENTS: Continue ASA indefinetly and plavix for 6 [...] qd ,aldactone 25 gm qd for now Pending Studies/Tests: None HPI Per Natividad Hatch: Raghu Rosenthal is a 77yrs Male with PMH of CAD s/p CABG x2 in [place] 10 years ago, HTN, HLD, porcine AVR who initially presented to [place] ED with complaints of SOB and midchest pressure. Patient lives in [place] with his , and is visiting [facility] for the next 3 months. He recently had a ziopatch placed by the [facility] on 12/27. Following this procedure he had worsening SOB associated with fatigue, malaise and generalized weakness. EMS was called and he was brought to [place] ED. On arrival he was noted to be in mild respiratory distress and required bipap. WBC of 19. EKG without NUNO, troponin 1.197. CXR consistent with mild interstitial edema, and a small left pleural effusion. He was given nitro sublingual and morphine, and started on BID lovenox. He was admitted to the ICU at [place]. He was started on empiric vanc, cefepime for possible infection. He was hypotensive requiring levophed with a differential of cardiogenic vs septic shock. He had a repeat EKG done on 12/28 with a new LBBB. His troponin trended as high as 39. Given concerns for acute coronary syndrome, he was transferred to [facility] health for further management. On arrival to CICU, patient is awake and alert. He is on low dose levophed. He is warm to the touchand appears well perfused. POCUS with EF visually estimated at 45%. Breathing comfortably on room air. HOSPITAL COURSE Medical Management: Raghu Rosenthal is a 77yrs Male with PMH of CAD s/p CABG x2 in [place] 10 years ago, HTN, HLD, porcine AVR who initially presented to [place] ED with complaints of SOB and midchest pressure. Patient lives in [place] with his , and is visiting [facility] for the next 3 months. He recently had a ziopatchplaced by the [facility] on 12/27. Following this procedure he had worsening SOB associated with fatigue, malaise and generalized weakness. EMS was called and he was brought to [place] ED. On arrival he was noted to be in mild respiratory distress and required bipap. WBC of 19. EKG without NUNO, troponin 1.197. CXR consistent with mild interstitial edema, and a small left pleural effusion. He was given nitro sublingual and morphine, and started on BID lovenox. He was admitted to the ICU at [place]. He was started on empiric vanc, cefepime for possible infection. He was hypotensive requiring levophed with a differential of cardiogenic vs septic shock. He had a repeat EKG done on 12/28 with a new LBBB. His troponin trended as high as 39. Given concerns for acute coronary syndrome, he was transferred to [facility] for further management. [facility], patient is awake and alert. He is on low dose levophed. He is warm to the touchand appears well perfused. POCUS with EF visually estimated at 45%. Breathing comfortably on room air. He underwent a R/LHC 12/28/2022 showing severe three-vessel disease with patent AVERY to LAD, intermediate stenosis in mid RCA, 60% distal left main stenosis, culprit for his VA appears to be an occluded SVG to ramus graft. He was also noted to have severely degenerated bioprosthetic aortic valve, invasive gradients reviewed severely stenotic with mean gradient over 40 mmHg. He was transferred out to the [facility] service while workup for TAVR was done. He was transferred back to CICU on 01/04for optimization prior to TAVR. He underwent TAVR on 01/08. Transferred back to CICU on 01/10 for ongoing heart failure management. 01/10 [facility] post [facility] for ongoing decompensated heart failure.On arrival to CICU pt is awake and alert, hemodynamically stable. His only complaint is a sore throat. Denies chest pain or shortness of breath. On a bumex drip. 01/11 Transfer to CIU. 01/12 MARINE TECHNICIAN-P defibrillator placed. Started on rocephin for UTI. 01/13 Bruno catheter exchanged due to CAUTI. CVL dced. UCx grew pseudamonas. Recephin Dced and cefepime started. 01/14 Pain and hematoma over site of pacemaker insertion, Hgb stable. 2 runs of VT self limiting. Lopressor started. 01/16: will received last does of IV cefipime today for pseudomonas UTI, per ID no need for cipro. Switched from bumex gtt 1mg/hr to Torsemide 60 mg PO BID. 01/17: continue PO torsemide 60 mg BID. Plan to DC to [facility] tomorrow or Sunday pending bed availability. 01/18: pulled bruno. Patient walking from bed to chair well. Continue Torsemide 60 mg PO BID. Plan to DC to IPR tomorrow. 01/19: Patient continued to remain medically stable and was discharged patient to IPR. Discharge Physical Exam: General: NAD lying comfortably in bed, not in distress Eyes: conjunctivae sclerae clear HENT: NC/AT Neck: supple, +JVD, no bruit Lungs: CTAB no w/r/r. Good air movement. Heart: RRR, normal S1, S2, systolic murmur, no gallops, or rubs. Abdomen: soft, nontender, nondistended, + bowel sounds, no organomegally, or masses Neuro: Alert, oriented X3, no focal neurological signs, moving all 4 extremities, Extremities: 1+ pitting edema in LE bilaterally. Skin: hematoma of left pectoralis PM site has improved greatly. No TTP today. Psych: normal affect, no confusion present Discharge Review of Systems: Review of Systems Constitutional: Negative for activity change and appetite change. HENT: Negative for drooling and nosebleeds. Respiratory: Negative for shortness of breath and wheezing. Cardiovascular: Negative for chest pain and palpitations. Gastrointestinal: Negative for abdominal distention and abdominal pain. Genitourinary: Negative for frequency and testicular pain. Musculoskeletal: Negative for joint swelling and neck stiffness. Skin: Negative for pallor and rash. Neurological: Negative for dizziness and light-headedness. Hematological: Negative for adenopathy. Does not bruise/bleed easily. Psychiatric/Behavioral: Negative for agitation and behavioral problems. 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 01/08/23: Right femoral artery, right femoral vein, left femoral artery, left femoral vein ultrasound guided access. Right femoral artery preclosure. Left coronary angiography Left main protection with 4.5 x 32 mm Synergy stent (stent NOT deployed at the end). IVUS left main, IVUS LCx Transcatheter aortic valve replacement with a 26 mm Evolut FX (within 25 mm Magna valve) via right femoral artery. Post dilatation with 23 mm True balloon. SHAKE SPLITTER right femoral artery with 8.0 x 80 mm balloon for balloon tamponade. 01/02/23: PFT 12/28/22: Left cardiac catheterization Coronary angiography Bypass graft angiography Right heart catheterization Aortic valve gradients. Radiological Studies This Admission: Results for orders placed or performed during the hospital encounter of 12/28/22 (from the past 168hour(s)) XRAY CHEST 1 VIEW Collection Time: 01/12/23 7:50 PM Narrative EXAM: XRAY CHEST 1 VIEW DATE: 01/12/2023 7:50 PM DICTATED: 01/12/2023 10:56 PM CLINICAL INDICATION: 77 years old Male: s/p biv ppm, do not lift left arm above shoulder level COMPARISON: 01/10/2023 FINDINGS: Right suprahilar opacity similar to prior exam. Mild left basilar opacity persists. Small bilateralpleural effusions. No pneumothorax. Enlarged cardiac silhouette with sternotomy wires, aortic valveprosthetic similar to prior. Right IJ sheath remains. Interval left-sided pacer with leads projecting over right atrium, right ventricle, coronary sinus. Impression IMPRESSION: Interval left-sided 3-lead pacer, no pneumothorax. Similar right suprahilar and left basilar pulmonary opacities with small bilateral pleural effusions. Reading Doctor: Miller Mills Electronic Signature by: Miller Mills XRAY CHEST 1 VIEW Collection Time: 01/14/23 5:26 PM Narrative EXAMINATION: XRAY CHEST 1 VIEW - Single semi-upright frontal view of the chest CLINICAL HISTORY: pacemaker and lead position evaluation COMPARISON: January 12, 2023 FINDINGS: Interval removal right IJ vascular catheter. Unchanged left chest pacemaker with leads projecting over the right atrium, right ventricle and coronary sinus. Leads. Cardiomediastinal silhouette is unchanged from prior. Stable small left and trace right pleural effusions. No pneumothorax. Improving right upper and left basilar opacities. No acute osseus abnormality. Visualized upper abdomen unremarkable. Impression IMPRESSION: Improving right upper lobe and left basilar pulmonary opacities. This report was dictated by Lan [place] M.D. Reading Doctor: Jacek Severino Electronic Signature by: Jacek Severino Echocardiograms Performed This Admission: ECHO Result Date: 01/15/2023 Reason for Exam: Aortic Valve Disorder Date of Service: 01/08/2023 Patient Height 175.0 cm Patient Weight 120.0 kg Systolic Pressure 103 mmHg Diastolic Pressure 69 mmHg Study Location [facility] BSA 2.3 m^2Procedure: A two-dimensional transthoracic echocardiogram with color flow and Doppler was performedin limited views only. Study Quality: Technically adequate. MMode 2D Measurements & Calculations LVOT diam - 2.4 cm LVOT area - 4.6 cm^2 LVOT area(traced) - 4.9 cm^2 Doppler Measurements & Calculations Ao V2 max - 169.3 cm/sec Ao max PG - 11.5 mmHg Ao max PG (full) - 9.6 mmHg Ao V2 mean - 105.9 cm/sec Ao mean PG - 5.3 mmHg Ao mean PG (full) - 4.4 mmHg Ao V2 VTI - 34.2 cm CHELITA(I,A) - 1.8 cm^2 CHELITA(I,D) - 1.8 cm^2 CHELITA(V,A) - 1.9 cm^2 CHELITA(V,D) - 1.9 cm^2 LVOT max gradient - 1.9 mmHg LV V1 mean PG - 0.93 mmHg LVOT max bee - 69.2 cm/sec LV V1 mean - 42.5 cm/sec LV V1 VTI - 13.3 cm SV(LVOT) -61.8 ml SI(LVOT) - 26.6 ml/m^2 Conclusion Limited echocardiogram in the OR during TAVR. Pre-TAVR Moderatelty reduced LV function, EF 35-40%. Severe prosthetic aortic stenosis. Mild mitral regurgitatio n. Post TAVR Moderately reduced LV function, EF 35-40%. S/p TAVR with 26 mm Evolut FX (within 25 mmMagna) post dilated with 23 mm True balloon. Peak AV bee 1.7 m/s. MG 5 mmHg. CHELITA 2 cm2. No paravalvular leak. InterpretingPhysician:Interpreting Physician: Timothy Monroe, electronically signed on 2023-01-15 10:23:56.353 ECHO Result Date: 01/10/2023 Reason for Exam: Aortic Valve Replacement Date of Service: 01/09/2023 Patient Height 175.0 cm Patient Weight 125.0 kg Systolic Pressure 148 mmHg Diastolic Pressure 51 mmHg Study Location [facility] BSA 2.4 m^2 Procedure: A complete two- dimensional transthoracic echocardiogram was performed (2D, M-mode, spectral and color flow Doppler). Study Quality: Technically adequate. A contrast injection of Definity was performed to improve assessment of LV function. Left Ventricle: The left ventricle is mildly dilated. There is normal left ventricular wall thickness. LVEDD 5.9 cm. Ejection Fraction = 40-45%. Abnormal (paradoxical) septal motion consistent with LBBB. Mild to moderate global hypokinesis. Inferi or and lateral vega move best. There is no thrombus. LV diastolic function can not be accurately assessed. Left Atrium: The left atrium is mildly dilated. Right Atrium: Right atrial size is normal. Right Ventricle: The right ventricle is normal in size and function. Aortic Valve: The peak aortic valve velocity 307 cm/s. Aortic mean pressure gradient= 18 mmHg. VTI ratio 0.39. No paravalvular leak. S/p [id number] TAVR with 26 mm Evolut FX (within 25 mm Magna, post dilated with 23 mm True balloon) on 01/08/23. Well-seated, normally functioning aortic prosthesis. Mitral Valve: The mitral valve is normal in structure and function. There is mild mitral regurgitation. Tricuspid Valve: Structurally normal tricuspid valve. There was insufficient TR detected to calculate RV systolic pressure. Pulmonic Valve: The Pulmonic Valve is partially seen. Mild pulmonic valvular regurgitation. Arteries:The aortic root is normal size. Venous: Systolic blunting was observed in the RUPV spectral Dopplerflow pattern. The inferior vena cava is normal in size, with a normal collapsibility index. Pericardium/Pleura: There is no pericardial effusion. MMode 2D Measurements & Calculations IVSd - 1.1 cm LVIDd - 5.9 cm LVIDs - 4.1 cm LVPWd - 1.5 cm IVS/LVPW - 0.7 FS - 31.4 % EDV(Teich) - 176.1 ml ESV(Teich) - 73.3 ml EF(Teich) - 58.4 % EF (est.) - 44.4 % EDV(cubed) - 209.9 ml ESV(cubed) - 67.8 ml EF(cubed) - 67.7 % LV mass(C)d - 341.4 grams LV mass(C)dI - 144.4 grams/m^2 SV(Teich) - 102.8 ml SI(Teich) - 43.5 ml/m^2 SV(cubed) - 142.1 ml SI(cubed) - 60.1 ml/m^2 Ao root diam - 2.7 cm Ao root area -5.6 cm^2 LA dimension - 4.7 cm LA/Ao - 1.8 LVOT diam - 2.4 cm LVOT area - 4.4 cm^2 LVOT area(traced) - 4.5 cm^2 LVLd ap4 - 10 cm EDV(MOD-sp4) - 187 ml LVLs ap4 - 9.6 cm ESV(MOD-sp4) - 106 ml EF(MOD-sp4) - 43.3 % LVLd ap2 - 9.7 cm EDV(MOD-sp2) - 154 ml LVLs ap2 - 8.6 cm ESV(MOD-sp2) - 76 ml EF(MOD-sp2) - 50.6 % SV(MOD-sp4) - 81 ml SI(MOD-sp4) - 34.3 ml/m^2 SV(MOD-sp2) - 78 ml SI(MOD-sp2) - 33 ml/m^2 Doppler Measurements & Calculations MV E max bee - 121 cm/sec MV A max bee - 113 cm/sec MV E/A - 1.1 MV dec time - 0.26 sec Ao V2 max - 293.1 cm/sec Ao max PG - 34.4 mmHg Ao max PG (full) - 28.5 mmHg Ao V2 mean - 187.7 cm/sec Ao mean PG - 16.9 mmHg Ao mean PG (full) - 13.8 mmHg Ao V2 VTI - 59.8 cm CHELITA(I,A) - 1.8 cm^2 CHELITA(I,D) - 1.8 cm^2 CHELITA(V,A) - 1.8 cm^2 CHELITA(V,D) - 1.8 cm^2 LVOT max gradient - 5.9 mmHg LV V1 mean PG - 3 mmHg LVOT max bee - 121.3 cm/sec LV V1 mean - 79.8 cm/sec LV V1 VTI- 25 cm SV(Ao) - 333 ml SI(Ao) - 140.8 ml/m^2 SV(LVOT) - 109.9 ml SI(LVOT) - 46.5 ml/m^2 PA V2 max - 173.7 cm/sec PA max PG - 12.1 mmHg Conclusion The left ventricle is mildly dilated. Ejection Fraction = 40-45%. Abnormal (paradoxical) septal motion consistent with LBBB. The right ventricle is normal in size and function. The left atrium is mildly dilated. S/p [id number] TAVR with 26 mm Evolut FX (within 25 mm Magna, post dilated with 23 mm True balloon) on 01/08/23. Well-seated, normally functioning aortic prosthesis. No paravalvular leak. The peak aortic valve velocity 3.1 m/s. Aortic mean pressure gradient= 18 mmHg. VTI ratio 0.39. There is mild mitral regurgitation. InterpretingPhysician:Interpreting Physician: Timothy Monroe, electronically signed on 2023-01-10 16:37:24.54 ECHO Result Date: 12/28/2022 Reason for Exam: Chest Pain Date of Service: 12/28/2022 Interpretation Summary There is no comparison study available. Patient Height 175.0 cm Patient Weight 127.0 kg Systolic Pressure 132 mmHg Diastolic Pressure 53 mmHg Study Location [facility] BSA 2.4 m^2 Procedure: A complete two-dimensional transthoracic echocardiogram was performed (2D, M-mode, spectral and color flow Doppler). Study Quality: Fair. The study was technically difficult with many images being suboptimal in quality. A contrast injection of Definity was performed to improve assessment of LV function. Left Ventricle: The left ventricular mass index is increased. There is mild concentric left ventricular hypertrophy. LVEDV 299 ml with BSA 2.4 m2 The ejection fraction measured by 2D BP MOD is41%. The LV ejection fraction is severely decreased. Akinesis of the apex and periapical segments, anteroseptum with better motion of the LV base representing, until proven otherwise, LAD territory issues on a background of moderate aortic stenosis. There is no thrombus. LV diastolic function can not be accurately assessed. E/E' averaged>13 Left Atrium: The left atrial volume is mildly increased. Right Atrium: Right atrial size is normal. Right Ventricle: The right ventricular systolic function is normal. Aortic Valve: Focal calcification. The aortic valve is not well visualized. The peak aortic valve velocity 385 cm/s. Aortic mean pressure gradient= 32 mmHg. The aortic valve velocity ratio was calculated at 0.27. Mitral Valve: Both leaflets are pliable and mobile. There is trace mitral regurgitation. Tricuspid Valve: The tricuspid valve is not well visualized. There was insufficient TR detected to calculate RV systolic pr essure. Pulmonic Valve: The pulmonic valve is not well visualized. Trace pulmonic valvular regurgitation. Arteries: The aortic root is normal size. There is aortic root sclerosis/calcification. Aortic arch not seen well. Venous: Severely dilated inferior vena cava. Pericardium/Pleura: There is no pericardial effusion. MMode 2D Measurements & Calculations IVSd - 1.2 cm LVIDd - 5.9 cm LVIDs - 4.7 cm LVPWd - 1.1 cm IVS/LVPW - 1.1 FS - 20.9 % EDV(Teich) - 172.5 ml ESV(Teich) - 100.2 ml EF(Teich) - 41.9 % EF (est.) - 41.1 % EDV(cubed) - 204.3 ml ESV(cubed) - 101 ml EF(cubed) - 50.6 % LV mass(C)d - 277.7 grams LV mass(C)dI - 116.6 grams/m^2 SV(Teich) - 72.4 ml SI(Teich) - 30.4 ml/m^2 SV(cubed) - 103.3 ml SI(cubed) - 43.4 ml/m^2 Ao root diam - 3.4 cm Ao root area - 9.3 cm^2 LA dimension - 4.7 cm LA/Ao - 1.4 LVLd ap4 - 11.6 cm EDV(MOD-sp4) - 289 ml LVLs ap4 - 10.1 cm ESV(MOD-sp4) - 176 ml EF(MOD-sp4) - 39.1 % LVLd ap2 - 11.3 cm EDV(MOD- sp2) - 302 ml LVLs ap2 - 10.1 cm ESV(MOD-sp2) - 176 ml EF(MOD-sp2) - 41.7 % SV(MOD-sp4) - 113 ml SI(MOD-sp4) - 47.5 ml/m^2 SV(MOD-sp2) - 126 ml SI(MOD-sp2) - 52.9 ml/m^2 Doppler Measurements & Calculations MV E max bee - 93.3 cm/sec MV A max bee - 113.7 cm/sec MV E/A - 0.82 MV dec time - 0.17 sec Ao V2 max - 330.8 cm/sec Ao max PG - 46.5 mmHg Ao max PG (full) - 42.4 mmHg Ao V2 mean - 223.4 cm/sec Ao mean PG - 24.8 mmHg Ao mean PG (full) - 22.8 mmHg Ao V2 VTI - 64.6 cm LVOT max gradient - 4.2 mmHg LV V1 mean PG - 2 mmHg LVOT max bee - 101.7 cm/sec LV V1 mean - 68.2 cm/sec LV V1 VTI - 20.4 cm SV(Ao) - 600 ml SI(Ao) - 252 ml/m^2 PA V2 max - 121.7 cm/sec PA max PG - 5.9 mmHg Conclusion The study was technically difficult with many images beingsuboptimal in quality. The left ventricular mass index is increased. E/E' averaged >13 The ejection fraction measured by 2D BP MOD is41%. Akinesis of the apex and periapical segments, anteroseptumwith better motion of the LV base representing, until proven otherwise, LAD territory issues on a background of moderate aortic stenosis. InterpretingPhysician:Interpreting Physician: Papi Delcid, electronically signed on 2022-12-28 16:16:52.52 Stress Tests Performed This Admission: None Heart Catheterizations Performed This Admission: 12/28/22: IMPRESSION: 1. Severe three-vessel disease with patent AVERY to LAD, intermediate stenosis in mid RCA, 60% distal left main stenosis. Culprit for his VA appears to be an occluded SVG to ramus graft. There is flowin the ramus with proximal 70% stenosis. 2. He is also noted to have severely degenerated bioprosthetic aortic valve, invasive gradients reviewed severely stenotic with mean gradient over 40 mmHg. 3. Decompensated heart failure with preserved cardiac output. We had discontinued his Levophed on arrival to the [facility]. LVEDP 30mmHg. DISCHARGE MEDICATIONS: Medication List START taking these medications Instructions clopidogreL 75 mg Tab Commonly known as: PLAVIX Take 1 Tablet by mouth daily for 60 days. evolocumab 140 mg/mL Pnij Commonly known as: REPATHA SURECLICK Give 140 mg subcutaneous every 2 weeks for 98 days. ferrous sulfate 325 mg (65 mg iron) Tbec Start taking on: January 20, 2023 Take 1 Tablet by mouth every 48 hours. folic acid 1 mg Tab Commonly known [...] by mouth daily as needed for Constipation. thiamine mononitrate 100 mg Tab Commonly known as: VITAMIN B-1 Take 1 Tablet by mouth daily. torsemide 60 mg Tab Take 60 mg by mouth twice a day. CONTINUE taking these medications Instructions aspirin 81 [...] TRILIPIX Take 1 Capsule by mouth daily. diclofenac sodium 1 % Gel gel Commonly [...] LEXAPRO Take 1 Tablet by mouth daily. fluticasone propionate 50 mcg/actuation Spsn Commonly known as: FLONASE by Nasal route. raNITIdine 150 mg Tab Commonly known as: ZANTAC Take 1 Tablet by mouth twice a day. Sodium Fluoride 5000 Plus 1.1 % Crea Generic drug: Sodium Fluoride SMARTSIG:Topical spironolactone 25 mg Tab Commonly known as: ALDACTONE Take 1 Tablet by mouth daily. tiotropium bromide 2.5 mcg/actuation Mist Commonly known as: SPIRIVA RESPIMAT INHALE 2 PUFFS BY MOUTH EVERY DAY FOR BREATHING STOP taking these medications amLODIPine 10 mg Tab Commonly known as: NORVASC amoxicillin 500 mg Cap Commonly known as: AMOXIL hydroCHLOROthiazide 25 mg Tab Commonly known as: HYDRODIURIL losartan 100 mg Tab Commonly known as: COZAAR magnesium oxide 400 mg Tab Commonly known as: MAG-OX omeprazole 20 mg Commonly known as: PriLOSEC rosuvastatin 20 mg Tab Commonly known as: CRESTOR traZODone 100 mg Tab Commonly known as: DESYREL Discharge LABS: Recent Labs 01/06/23 0212 01/06/23 0406 01/08/23 1234 01/08/23 1237 01/14/23 0518 01/14/23 0737 01/17/23 1737 01/17/23 2053 01/18/23 0457 01/18/23 0737 01/19/23 0437 01/19/23 0734 01/19/23 1156 SODIUM 129* < > 134* < > 132* < > 131* 133* 133* POTASSIUM < > 3.5 < > 3.2* < > 3.7 3.5 3.2* CHLORIDE 93* < > 98 < > 93* < > 92* 94* 94* GLUCOSE POCT < > < > < > < > 104* 112* GLUCOSE 130* < > 165* < > 110* < > 108* 110* 96 BUN 107* < > 96* < > 97* < > 86* 82* 76* CREATININE 2.34* < > 1.78* < > 1.76* < > 1.61* 1.54* 1.45* CALCIUM 8.4 < > 8.5 < > 8.9 < > 9.5 9.5 9.0 CALCIUM IONIZED < > 4.8 < > PHOSPHATASE ALKALINE 40 40 42 AST SGOT 63* 42* 33 ALT SGPT 29 21 18 BILIRUBIN INDIRECT CALC 0.6 0.4 BILIRUBIN TOTAL 1.7* 1.8* 1.1 BILIRUBIN DIRECT 1.2* 0.7* PROTEIN TOTAL 6.4 4.8* 5.1* ALBUMIN 3.3 2.7* 2.6* < > = values in this interval not displayed. Recent Labs 01/15/23 0417 01/16/23 0355 01/17/23 0352 WBC 8.22 8.86 9.26 HEMOGLOBIN 8.6* 8.8* 9.1* HEMATOCRIT 28.1* 28.0* 30.0* NEUTROPHIL # 5.39 5.29 5.07 NEUTROPHIL % 66 59 54 MCV 96.6 97.2 96.8 PLATELET 127* 123* 116* Important LABS: 12/28/2022: Cholesterol 100 mg/dL; Chol/HDL Ratio 3.7 mg/dL; LDL 60 mg/dL; HDL Cholesterol 27 mg/dL (L); Triglyceride 67 mg/dL 12/28/2022: Hemoglobin A1C 5.0 % Recent Labs 01/01/23 1237 01/01/23 2352 01/03/23 0038 TROPONIN I 15.04* 14.16* 12.26* DISCHARGE INSTRUCTIONS Specific Discharge Instructions: Discharge Procedure Orders Cardiac Diet Scheduling Instructions: A cardiovascular diet appropriate for patients with hyperlipidemias, heartfailure and HTN. Provides at least 1700 calories or more per day. Provides weekly averages: 25-30% of calories from fat, <10% of the calories from saturated fat, <2000mg sodium per day. No saltpackets given on trays. Limits higher sodium foods such as soups, deli meats, etc. Discharge Instructions - Cardiac Rehab Referral Order Comments: You have been provided with a cardiac rehabilitation referral to a Phase II program. If you have not been contacted within two weeks, please follow-up with your Primary Care Provider Patient may use home medication - sublingual NTG 0.4 mg as prophylaxis for chest pain prior to exercise Discharge Instructions for Cardiac Rehab Order Comments: You have been provided with a cardiac rehabilitation referral and may qualify for these services. If you qualify, you will be contacted by the program closest to your home once they have availability within their program. Please follow up with your referring belt line feeder or your primary care team if you have any questions. Order Specific Question Answer Comments Instructions This service may be available if you qualify and is meant to assist you in managing your heart disease. If you have question or would like to find a cardiac rehab in your area please call [phone]. Discharge Instructions for Cardiac Rehab Order Comments: You have been provided with a cardiac rehabilitation referral and may qualify for these services. If you qualify, you will be contacted by the program closest to your home once they have availability within their program. Please follow up with your referring belt line feeder or your primary care team if you have any questions. Order Specific Question Answer Comments Instructions This service may be available if you qualify and is meant to assist you in managing your heart disease. If you have question or would like to find a cardiac rehab in your area please call [phone]. In The Case Of An Emergency, Call 911 Order Comments: If you are unable to reach your Doctor or Go to the nearest Hospital. Call Doctor's Office If Unable To Eat Or Drink Call Doctor's Office If Uncontrolled Diarrhea Call Doctor's Office If Bleeding From Incision Call Doctor's Office If Your Incision Pulls Apart Amb Referral to Cardiac Rehab Referral Priority: Routine Referral Type: Evaluation & Treat Number of Visits Requested: 1 Expiration Date: 12/29/23 Discharge Diet: Will continue home diet as prescribed. Discharge Activity Level: Activity as tolerated DISCHARGE INFORMATION Discharge Vitals: BP 104/69 Pulse 80 Temp 36.4 ??C (97.5 ??F) Resp 18 Ht 1.753 m Wt 112.8 kg SpO2 98% BMI 36.71 kg/m?? Discharge Allergies: Hydrocodone-acetaminophen, Venom-honey bee, Morphine sulfate, Amoxicillin, Atorvastatin, Clarithromycin, Clavulanic acid, Hydrocodone, Indomethacin, Lansoprazole, Leflunomide, Pravachol [pravastatin], Tetracycline, and Unclassified drug Discharge Disposition: Transferred to Rehab Facility Discharge Condition: Stable. Family Contact Number: Primary Emergency Contact: Cathy Connell Margarito, [facility] PM&R Resident CC: PCP ([place] Yip MD Address: [address] [place] [address], ) Associated attestation - Abdoulaye Canales MD - 02/04/2023 8:17 PM EDT Cardiology Attending Note Patient Name: Raghu Rosenthal Gender: Male Age: 77yrs :1945 MR #: [id number] #:[id number] Attending Provider: No att. providers found I saw and evaluated Raghu Rosenthal, a 77yrs-year old Male with cardiology inpatient resident/consult/CICU team on 01/19/2023 and agree with the facts as documented in the note. Current medications include aspirin 81 mg daily, Plavix 75 mg daily, metoprolol XL 25 mg daily, Aldactone 25 mg daily and torsemide 60 mg twice daily. The patient will also benefit from aggressive lipid control. Would recommend Repatha or Praluent to be started. He is being discharged to inpatient rehabilitation today. Electronically signed by: Abdoulaye Canales MD, [facility] Parking Line Painter of Cardiology [facility] [employer] [facility] documented in this encounter Discharge Instructions * Discharge Instructions* Shira Gonzalez AGNP - 12/28/2022 5:14 PM EDT [facility] CARDIOLOGY DEVICE DISCHARGE INSTRUCTIONS During this visit, [...] specialist. We will connect you to our erp programmer and assess your device to ensure it is working appropriately and safely. Feel free to contact us at the [facility] Device Clinic with any questions or concerns. [facility] [place] at [facility]: [address] [place] [address] Trevro Johnson RN After Fluoroscopy Your health care team used a type of X-ray called Fluoroscopy during your procedure. This type of X-ray is like an X-ray 'movie?? . It lets your health care team see inside of your body in real-time and helps your health care team with the diagnosis and treatment of your medical condition. All X-rays use radiation. Sometimes, radiation can cause a skin reaction. Follow these instructionsafter your procedure. Home Care Check your body for a skin reaction. You may need a family member to help you. Where to look: What to look for in this area: The amount of radiation used during your procedure was between 0 - 2000 milliGray (mGy). This is a low amount of radiation and you should not notice any skin changes. When to call your doctor Call your doctor if you have any skin changes, questions, or concerns. You can also contact the [facility] Radiation Safety Office at or at [email or web address] ?? 2021 Psychiatric hospital. All rights reserved. This information is not intended as a substitute for professional medical care. Always follow your health care provider's instructions. documented in this encounter Medications at Time [...] BY MOUTH EVERY DAY FOR BREATHING 05/12/2022 cetirizine (ZyrTEC) 10 mg Oral Tablet 1 Tablet. 02/08/2022 01/21/2023 chlorhexidine (PERIDEX) 0.12 % Mucous Membrane Mouthwash 15 mL by Swish & Spit route twice a day. 01/21/2023 cholecalciferol (VITAMIN D-3) 25 mcg (1,000 unit) Oral Tablet Take 1 Tablet by mouth daily. 01/21/2023 choline fenofibrate (TRILIPIX) 135 mg Oral Capsule, Delayed Release(E.C.) Take 1 Capsule by mouth daily. 01/21/2023 clopidogreL (PLAVIX) 75 mg Oral Tablet Take 1 Tablet by mouth daily for 60 days. 30 Tablet 1 01/19/2023 01/30/2023 diclofenac sodium (VOLTAREN) 1 % Topical Gel gel APPLY 2 GRAMS TO UPPER AND 4 GRAMS TO LOWER EXTREMITIES TOPICALLY FOUR TIMES DAILY NEEDED FOR PAIN/INFLAMMATION. *DO NOT EXCEED 16 GRAMS DAILY TO ANY JOINT OF LOWER EXTREMITIES. DO NOT EXCEED 8 GRAMS DAILY TO ANY JOINT OF UPPER EXTREMITIES. DO NOT EXCEED TOTAL DOSE OF 32 GRAMS DAILY OVER ALL JOINTS. 04/06/2022 01/21/2023 EPINEPHrine (EPIPEN) 0.3 mg/0.3 mL (1:1,000) Injection Auto-Injector Give 0.3 mL intramuscular. 01/30/2023 evolocumab (REPATHA SURECLICK) 140 mg/mL Subcutaneous Pen Injector Give 140 mg subcutaneous every 2 weeks for 98 days. 1 mL 6 01/19/2023 01/30/2023 ferrous sulfate 325 mg (65 mg iron) Oral Tablet, Delayed Release (E.C.) Take 1 Tablet by mouth every 48 hours. 90 Tablet 3 01/20/2023 01/30/2023 fluticasone propionate (FLONASE) 50 mcg/actuation Nasal [place], Suspension by Nasal route. 02/08/2022 01/21/2023 folic acid (FOLVITE) 1 mg Oral Tablet Take 1 Tablet by mouth daily. 30 Tablet 3 01/19/2023 01/21/2023 gabapentin (NEURONTIN) 100 mg Oral Capsule Take [...] mouth daily. 30 Tablet 3 01/19/2023 01/30/2023 oxyCODONE (ROXICODONE) 5 mg Oral Tablet Take 1 Tablet by mouth every 4 hours as needed for Pain. 10 Tablet 01/19/2023 01/21/2023 polyethylene glycol (GLYCOLAX) 17 gram Oral Powder [...] as needed. 60 Tablet 3 01/21/2023 01/30/2023 raNITIdine (ZANTAC) 150 mg Oral Tablet Take 1 Tablet by mouth twice a day. 01/21/2023 sodium chloride 0.9 % Injection Syringe syringe 3 mL by Intravenous route every 8 hours. 0 01/21/2023 01/30/2023 Sodium Fluoride 5000 Plus 1.1 % Dental Cream SMARTSIG:Topical 11/28/2022 01/21/2023 thiamine mononitrate (VITAMIN B-1) 100 mg Oral Tablet Take 1 Tablet by mouth daily. 30 Tablet 3 01/19/2023 01/21/2023 torsemide 60 mg Oral Tablet Take 60 mg by mouth twice a day. 120 Tablet 3 01/19/2023 01/30/2023 traZODone (DESYREL) 50 mg Oral Tablet Take 1 Tablet by mouth every evening. 30 Tablet 3 01/21/2023 01/30/2023 documented as of this encounter Progress Notes * Zac Estrada OTR/Jessica - 02/01/2023 9:22 AM EDT Patient was discharged from the acute hospital prior to meeting acute Occupational Therapy goals; therefore discharge note not completed. If needed, please refer to recommendations made by evaluatingtherapist in the Acute OT evaluation under the Initial Evaluation tab on EHR or in the OT Acute Grid flowsheet, and see last OT progress note for most recent functional status. Late entry. JACK Nation/Jessica *Please utilize Cortext to contact* * Nidhi Humphrey PT - 01/19/2023 4:50 PM EDT Raghu Rosenthal was discharged from the acute hospital prior to meeting acute Physical Therapy goals;therefore discharge summary not completed. If needed, please refer to the therapist's initial recommendations made on initial evaluation, or see the last PT treatment note for most recent functional status. Nidhi Humphrey PT * Mary Chavez RN - 01/19/2023 4:10 PM EDT Patient transport picked up patient for transfer to [facility]. * Ruma Andrade CCM - 01/19/2023 1:09 PM EDT Pt d/c to [facility] today * Gaurav Lin MD - 01/19/2023 12:29 PM EDT Checklist for Evolocumab prior authorization. Patient has the following diagnosis Acute coronary syndrome, History of myocardial infarction, and Coronary or other arterial revascularization Patient's LDL-C Level (within the past 3 months): 60 Other (specify) on Fenofibrate , unable to tolerate multiple statins Atorvastatin 40 mg, Pravastatin 20 mg, and Simvastatin 20 mg Statin intolerance or contraindication. (i) Patient has a history of Muscle pain or weakness (ii) Symptoms reappeared after statin re-challenge with a lower dose Yes (iii) Contraindication (if any): none * Gaurav Lin MD - 01/19/2023 8:02 AM EDT Brief Discharge to Inpatient Rehab Note Patient Name: Raghu Rosenthal : 1945 Weight bearing status, activity limitations, and range of motion restrictions: ACTIVITY No heavy lifting (>10lbs), pushing, or pulling until insertion site is healed for 4-6 weeks. Do not raise your arm above shoulder level or stretch for 4-6 weeks. No driving until two-week site check appointment. DVT prophylaxis/Anticoagulation recommendations: per rehab Start Date: per rehab Anticipated stop date (if any): Per Rehab Date rajan/sutures can be removed by rehab if applicable (please indicate if rehab is not to remove): Rehab can change dressing, [facility] will continue to monitor, pt is due for pacemaker site check in 2 weeks Dressing changes: WOUND CARE OK to shower but do not soak surgical site in water for 3 days. Leave dressing in place for 24 hours. DO NOT put creams or ointments on surgical site. You can expect swelling, tenderness, and discomfort at site. CALL if you experience increased bleeding that does not stop, uncontrolled pain, signs of infection: fever >100.5, drainage, redness, rash. Bathing/showering/pool therapy restrictions: OK to shower but do not soak surgical site in water for 3 days. Diet Orders (From admission, onward) Start Ordered 01/12/231811 Nutrition Therapy Diet Effective Now Start: 01/12/231811 End: Until Specified References: PolicyStat Link Nutrition Descriptions Question: Nutrition Therapy: Answer: Heart Healthy 01/12/23181101/12/23 1400 Nourishments (Snacks) EVERY AFTERNOON Process Instructions: Please place separate orders for each flavor needed. Start: 01/12/23 1400 End: Until Specified Question: Snacks: Answer: Lake, Chicken Salad 01/11/23 1449 01/12/23 1000 Nourishments (Snacks) EVERY MORNING Process Instructions: Please place separate orders for each flavor needed. Start: 01/12/23 1000 End: Until Specified Question: Snacks: Answer: Cottage Cheese with Fruit 01/11/23 1449 01/11/23 1800 Oral Nutrition Supplement (Ensure Max, High Protein) With Breakfast And Dinner Process Instructions: Please place separate orders for each flavor needed. Start: 01/11/23 1800 End: Until Specified Question: Flavor: Answer: Chocolate 01/11/23 1449 01/11/23 1800 Oral Nutrition Supplement (Magic Cup, High Calorie, High Protein, 4Oz) With Lunch AndDinner Process Instructions: Please place separate orders for each flavor needed. Start: 01/11/23 1800 End: Until Specified Question: Flavor Answer: Chocolate 01/11/23 1449 Already Scheduled [facility] or [facility] appointments: Future Appointments Date Time Provider Department Center 01/20/2023 6:30 AM [facility] 01/20/2023 10:00 AM Leigha Warren PT -[address] 01/20/2023 11:00 AM Froilan, Anais, OTR/L [facility] 01/20/2023 2:00 PM Leigha Warren, PT [facility] 01/22/2023 7:30 AM Anais Mcgovern, OTR/L [facility] 01/22/2023 10:00 AM Anais Mcgovern, OTR/L [facility] 01/22/2023 2:30 PM RSCI OTH(MIS) [facility] 01/31/2023 2:20 PM [facility] CARDIOLOGY SITE CHECK [facility] 02/13/2023 12:15 PM [facility] CVS LAB [facility] 02/13/2023 12:30 PM [facility] CARDIO GRAPHICS 2 [facility] 02/13/2023 1:15 PM [facility] CVS XRAY01 [facility] 02/13/2023 1:30 PM Timothy Monroe MD [facility] 04/18/2023 1:00 PM Mathew Johnson, JULIA [facility] Other Follow-up appointments or when appointments should be made with services after discharge fromrehab: Pt to set up w/ PCP Feel free to contact us at the [facility] with any questions or concerns. 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 Given risk for CHB EP placed pacemaker, [facility] cardiology will continue to follow while patient is in IPR. - Pt developed hematome over the [facility] site, EP evaluated, not concerning, continue placing sand bag over the hematoma for now. - Due to fragile cardiac function, will advance GDMT very slowly, holding sherman/arb for now to ensuregood tolerance to PT, [facility] cardiology will continue to follow and advance GDMT, ct toprol xl 25 mg qd ,aldactone 25 gm qd for now - ct diuresis with Torsemide 60 mg BID, monitor for volume status - ct ASA indefinetly and plavix for 6 months, pt is unable to tolerate statins, ct trilipix, will sent a priscription to OP pharmacy for evolocumab, patient has hx of cabg and will beneift from aggressive antilipid mgmt, pt can pick the medication from OP pharmacy and give it to the patient during rehab. - recommend iron and multi vit supplement - melatonin for sleep - gabapentine and prn oxy for pain control at the pacemaker site Discharge Medications: Medication List START taking these medications Instructions clopidogreL 75 mg Tab Commonly known as: PLAVIX Take 1 Tablet by mouth daily for 60 days. evolocumab 140 mg/mL Pnij Commonly known as: REPATHA SURECLICK Give 140 mg subcutaneous every 2 weeks for 98 days. ferrous sulfate 325 mg (65 mg iron) Tbec Start taking on: January 20, 2023 Take 1 Tablet by mouth every 48 hours. folic acid 1 mg Tab Commonly known [...] by mouth daily as needed for Constipation. thiamine mononitrate 100 mg Tab Commonly known as: VITAMIN B-1 Take 1 Tablet by mouth daily. torsemide 60 mg Tab Take 60 mg by mouth twice a day. CONTINUE taking these medications Instructions aspirin 81 [...] TRILIPIX Take 1 Capsule by mouth daily. diclofenac sodium 1 % Gel gel Commonly [...] LEXAPRO Take 1 Tablet by mouth daily. fluticasone propionate 50 mcg/actuation Spsn Commonly known as: FLONASE by Nasal route. raNITIdine 150 mg Tab Commonly known as: ZANTAC Take 1 Tablet by mouth twice a day. Sodium Fluoride 5000 Plus 1.1 % Crea Generic drug: Sodium Fluoride SMARTSIG:Topical spironolactone 25 mg Tab Commonly known as: ALDACTONE Take 1 Tablet by mouth daily. tiotropium bromide 2.5 mcg/actuation Mist Commonly known as: SPIRIVA RESPIMAT INHALE 2 PUFFS BY MOUTH EVERY DAY FOR BREATHING STOP taking these medications amLODIPine 10 mg Tab Commonly known as: NORVASC amoxicillin 500 mg Cap Commonly known as: AMOXIL hydroCHLOROthiazide 25 mg Tab Commonly known as: HYDRODIURIL losartan 100 mg Tab Commonly known as: COZAAR magnesium oxide 400 mg Tab Commonly known as: MAG-OX omeprazole 20 mg Commonly known as: PriLOSEC rosuvastatin 20 mg Tab Commonly known as: CRESTOR traZODone 100 mg Tab Commonly known as: DESYREL Electronic Provider Signature: Gaurav Lin 01/19/2023 12:51 PM Completed for Attending: Abdoulaye Canales MD Associated attestation - Abdoulaye Canales MD - 02/04/2023 8:16 PM EDT Cardiology Attending Note Patient Name: Raghu Rosenthal Gender: Male Age: 77yrs :1945 MR #: [id number] [facility] #:[id number] Attending Provider: No att. providers found I saw and evaluated Raghu Rosenthal, a 77yrs-year old Male with cardiology inpatient resident/consult/CICU team on 01/19/2023 and agree with the facts as documented in the note. Please refer to my addendum to discharge summary. Electronically signed by: Abdoulaye Canales MD, [facility] Parking Line Painter of Cardiology [facility] * Maru Leblanc, JULIA - 01/19/2023 5:33 AM EDT Shift Summary: Slept on & off this shift,remains confused.Paced on monitor. AM labs collected.Patient's needs assessed every hour and as needed by staff.Pt denies pain, SOB or chest pain at this time. Safety precautions maintained throughout the shift,Pt remained free from fall and injury.Bed in low position,wheels locked,call vasquez within reach. VSS,NAD,ambu/code equipment at bedside.Will report POC to oncoming RN. * Flip Moscoso RN - 01/18/2023 6:45 PM EDT No acute events this shift. Patient intermittently confused but improving. Reorientation provided. Bruno removed this shift. Patient voiding independently. Will continue to monitor * Gary Patiño - 01/18/2023 4:14 PM EDT PHYSICAL THERAPY RE- [facility] Patient Name: Raghu Rosenthal Date of Treatment: 01/18/2023 Date of : 1945 Age: 77yrs Date of admission: 12/28/2022 Attending Provider: Abdoulaye Canales MD Start Time: Time In: 1541 End Time: Time Out: 161 Active Hospital Problems Diagnosis *01/08/23 TransCatheter Aortic Valve Replacement ([id number], 26 Medtronic Evolut Pro, via the Left Transfemoral Approach) EF 35% CKD (chronic kidney disease) stage 3, GFR 30-59 ml/min (CMS/HCC) FILIBERTO (acute kidney injury) ([facility]/HCC) Pulmonary edema Cardiogenic shock (CMS/HCC) Acute on chronic HFrEF (heart failure with reduced ejection fraction) ([facility]/HCC) NSTEMI (non-ST elevated myocardial infarction) ([facility]) Hypertension Hyperlipidemia Coronary artery disease Units PT Units (15 mins): 2 Treatment Trackin Subjective: Subjective/History Patient/family stated goals: Pt reports his goal is to get better Pt found in arm chair with at bedside, exited upon PT entry. Pt agreeable to work with therapy today. Educated pt on pacemaker precautions, pt partially able to repeat back. Became increasingly confused as session continued and required constant cueing for precaution adherence and proper standing technique with RW. Pt endorses that he is more confused than normal, RN agrees. Pt says I can hear you, I'm just moving really slow. Rolled pt back to room in arm chair after last ambulation trial with all needs met. Pre-Eval Pain Score: 3 Post-Eval Pain Score: Pain Pain Intensity Numbers Scale: 0 - No Pain Pain Location: Incision site Pain Characteristics: Aching Pain-Associated Symptoms: None Pain Precipitating Factors: No Precipitating Factors Pain Relief Interventions: Distraction Social History Social History Expected Caregiver at DC from Hospital: Spouse Caregiver Availability : multimedia editor Caregiver/Physical Assistance available: Significant assistance available Mental Status/Communication/Psychosocial Behavior Pt became confused as session progressed, required repeated simple commands to complete tasks. Objective Findings: Musculoskeletal Assessment: MMT B UE WFL B LE WFL Neck/Trunk: WFL Precautions: Precautions Implemented: Falls, Cardiac, Pacemaker Sensation: WFL Coordination: No coordination deficits that impair functional tasks were noted. Tone: Normal Upright Control/Balance: Sitting Static: Normal balance reactions, accepts all challenges to staticbalance Sitting Dynamic: Normal balance reactions, accepts all challenges during functional tasks. Standing Static: Normal balance reactions, accepts all challenges to static balance. Standing Dynamic: Normal balance reactions, accepts all challenges during functional tasks Cardiopulmonary/Endurance: Vital Signs: BP Pulse Position 01/18/23 1614 128/77 (102) 82 Sitting upright 01/18/23 1542 114/63 (88) 78 Sitting upright Could not find SpO2 probe in room, monitored levels via portable monitor during mobilization and levels stayed above 90%. Outcome Tools: AM-PAC SHORT FORMS TOOL BASIC MOBILITY Raghu Rosenthal exhibited the following: Basic Mobility Tasks Turning in bed without bedrails: 3- A Little Moving to and from a bed to a chair: 3- A Little Lying on back to sitting on edge of flat bed: 3- A Little Standing up from a chair: 3- A Little To walk in hospital room: 3- A Little Climb 3-5 steps with a railin- A Lot Basic Mobility Scores AM-[facility] Mobility Raw Score: 17 AM-PAC Mobility t-Score: 39.67 AM-PAC Mobility G-Code Modifier: CK Legend for Raw & T-Scale Score: Raw score of 6 (t-scale score of 16.59) indicates the patient is totally dependent on staff/family for mobility Raw score of 18 (t-scale score of 41.05) indicates the patient requires a little bit of help (minimal assistance) to move Raw score of 24 (t-scale score of 57.68) indicates the patient is functionally independent Initial Functional Status Current Functional Status Bed Mobility/Transfers: Supine to Sit Unable/Not assessed: Patient already up in chair at beginning of session. Level of Assist: Min Assist Assistive Device: HOB elevated 30 degrees, Siderail (and 2 hand hold) No. of person(s) assistin Reason for assist: Sequencing, Safety, Physical support or lifting, Facilitation, Balance # of trials: 1 Sit to supine Unable/Not assessed: other (comment) (wanted to remain seated EOB) Sit to stand Surface height: 20 Level of Assist: Min Assist Assistive Device: Rolling Walker No. of person(s) assistin Reason for assist: Sequencing, Safety, Physical support or lifting, Facilitation, Balance # of trials: 2 Stand to sit Surface Height: 20 Level of Assist: Min Assist Assistive Device: Rolling Walker No. of person(s) assistin Reason for assist: Safety, Physical support or lifting, Sequencing, Facilitation, Balance # of trials: 2 Arm Chair Transfer Unable to assess: due to patient declined Type of transfer: Stand step Level of assist: Min Assist Assistive device: Gait belt, Rolling Walker No. of person(s) assistin Reason for assist: Safety, Physical support or lifting, Balance # of trials: 1 Hospital Bed Transfer Type of transfer: Stand step Level of assist: Min Assist Assistive device: Rolling Walker No. of person(s) assistin Reason for assist: Physical support or lifting, Safety, Balance, Facilitation, Device management # of trials: 1 Bed Mobility/Transfers: Sit to Stand Surface height: 20 Level of Assist: Min Assist Assistive Device: Gait Belt, Rolling Walker No. of person(s) assistin Reason for assist: Physical support or lifting, Proper Technique, Safety # of Trials: 1 Stand to Sit Surface Height: 20 Level of Assist: Contact Guard Assistance Assistive Device: Gait belt, Rolling Walker No. of person(s) assistin Reason for assist: Physical support or lifting, Proper Technique, Safety # of Trials: 1 Hospital Bed Transfer Type of transfer: Stand step Level of assist: Contact Guard Assistance Assistive device: Gait belt, Rolling Walker No. of person(s) assistin Reason for assist: Safety, Physical support or lifting (Proper technique) # of Trials: 1 Locomotion: Ambulation Ambulation Level of assist: Min Assist Assistive device: Rolling Walker No. of person(s) assistin Reasons for assist: Endurance, Safety issues, Device management, Physical support, Balance # of trials: 1 Distance in feet: 15 Gait Deviations: decreased gait speed, crouched posture Surfaces: level Stair Climbing Up Steps Did not assess stairs up/down: as patient will not have to climb stairs at home Wheelchair Mobility Unable to assess: not primary mode of locomotion Locomotion: Ambulation Ambulation Level of assist: Min Assist (Intermittent CGA) Assistive device: Gait belt, Rolling Walker No. of person(s) assistin Reasons for assist: Safety issues, Physical support, Adherence to precautions # of trials: 1 Distance in feet: 5 Gait Deviations: Decreased gait speed, downward gaze, forward flexed posture Surfaces: Smooth, level Stair Climbing Up Steps Did not assess stairs up/down: due to limited strength/endurance Assessment: Raghu Rosenthal presents with deficits that warrant PT intervention. Pt demonstrates functional strength and ROM during ambulation, with decreased endurance and fatigued quickly. Required frequent seated rest breaks after short periods of ambulation. Did not require much physical assistance for transfers or ambulation, but required constant simple cueing to maintain precautions. Presents with resting tremors as pt fatigues. Pt would continue to benefit from acute PT services to keep building strength and endurance and continue progressing towards goals. Impairments: Patient presents with impairment of the following functions: Neuromusculoskeletal and movement functions including range of motion, muscle strength, endurance, gait pattern Activity/Restrictions: Patient presents with limitations in activity/restrictions in participation in the following: Mobility including: Transfers, Walking short distances, long distances, on different surfaces, around obstacles, walking without an assistive device Treatment Plan PT Recommended Treatment: Patient/Caregiver education. Exercise/Mobility: Therapeutic exercise, Transfer training, Gait training, Functional mobility training, Neuromuscular re-education Durable medical equipment assessment Discharge planning PT Intensity/Frequency: POT-Minimum Tx's per week: 4 times/week PT Anticipated Duration: 2 weeks PT POT Due: PT POT Due Date: 02/01/23 Patient has reviewed, understood and agrees with treatment plan: Yes Education-See Patient Education Activity Goals Potential to Achieve Goals: Good Physical Therapy Problems (Active) Problem: GENERAL MOBILITY (ALLIED HEALTH) Dates: Start: 01/09/23 Goal: Bed Mobility Dates: Start: 01/09/23 Expected End: 02/01/23 Description: Patient will be able to perform bed mobility with supervision, using no assistive device. Assistance required for safety. UNMET. Updated goal 01/18/2023 Patient will be able to perform bed mobility with supervision, using no assistive device and adhering to pacemaker precautions. Assistance required for safety. Goal: Household Transfer Dates: Start: 01/09/23 Expected End: 02/01/23 Description: Patient will be able to perform all functional transfers to/from household surfaces with supervision using least restrictive device. Assistance required for safety. UNMET Updated goal 01/18/2023 Patient will be able to perform all functional transfers to/from household surfaces with supervision using least restrictive device and adhering to pacemaker precautions. Assistance required for safety. Goal: Ambulation Dates: Start: 01/09/23 Expected End: 02/01/23 Description: Patient will be able to ambulate with supervision with least restrictive device > 100 ft. Assistance required for safety. UNMET Updated goal 01/18/2023 Patient will be able to ambulate with supervision with least restrictive device > 100 ft while adhering to pacemaker precautions. Assistance required for safety. Goal: Stair/Step Negotiation Dates: Start: 01/09/23 Expected End: 02/01/23 Description: Patient will be able to ascend/descend 13 steps with one rail and contact guard and least restrictive device without weight bearing restrictions. Assistance required for safety. UNMET Updated goal 01/18/2023 Patient will be able to ascend/descend 13 steps with one rail and contact guard and least restrictive device without weight bearing restrictions and adhering to pacemaker precautions. Assistance required for safety. Discharge Plan/Recommendations: Post-Acute Therapy Needs: Gait training, Neuromuscular Re-education, Therapeutic Activities, Therapeutic Excercises Intensity/setting: high intensity, facility based Physical Assistance Required at This Time: All mobility Supervision Required at This Time: All mobility Expected Caregiver at DC from Hospital: Spouse Caregiver Availability : multimedia editor Caregiver/Physical Assistance available: Significant assistance available Equipment Needed at DC: Will be assessed at next level of care Physical Therapy Recommended Consults: None identified at this time. The following Treatments/Interventions were added to this Re-Evaluation session based upon the patient's acute needs identified above & in the assessment section. Therapeutic Activities 15 minutes Functional Activities Addressed Today: Sit to Stand Surface height: 20 Level of Assist: Min Assist Assistive Device: Gait Belt, Rolling Walker No. of person(s) assistin Reason for assist: Physical support or lifting, Proper Technique, Safety # of Trials: 2 Stand to Sit Surface Height: 20 Level of Assist: Contact Guard Assistance Assistive Device: Gait belt, Rolling Walker No. of person(s) assistin Reason for assist: Physical support or lifting, Proper Technique, Safety # of Trials: 2 Arm Chair Transfer Type of transfer: Stand step Level of assist: Contact Guard Assistance Assistive device: Gait belt, Rolling Walker No. of person(s) assistin Reason for assist: Proper Technique, Safety, Physical support or lifting # of trials: 2 Ambulation Ambulation Level of assist: Min Assist (Intermittent CGA) Assistive device: Gait belt, Rolling Walker No. of person(s) assistin Reasons for assist: Safety issues, Physical support, Adherence to precautions # of trials: 2 Distance in feet: 15, 20 Gait Deviations: Decreased gait speed, downward gaze, forward flexed posture Surfaces: Smooth, level Stair Climbing - Up Did not assess stairs up/down: due to limited strength/endurance DIVYA Oconnell Associated attestation - Nidhi Humphrey PT - 01/19/2023 5:27 PM EDT This medical writer was present for direct supervision and assist of student and patient during re-evaluation. I have reviewed and agree with documentation provided below. Thank you. Nidhi Humphrey, PT, DPT Cortext preferred method of communication. * Ruma Andrade CCM - 01/18/2023 9:53 AM EDT Per [facility]: -acute team indicating patient medically ready for Rehab -[facility] is again at capacity today -we have added Mr. Rosenthal to our wait-list and will notify acute team and admit once we have a bed available, most likely tomorrow * Nela Olmos RN - 01/18/2023 6:22 AM EDT End of Shift Summary Pertinent Events This Shift: Pt. appeared to rest, doze and sleep in bed and bedside recliner during this shift. Uneventful medical payment poster. Pt reported some generalized discomfort and body pain, medicated as in nov for same. Pt up with 2 assist to get in recliner approx 0000. Bruno remains in place draining clear yellow urine. Pt ate some peanut butter crackers early in shift for a snack. Pt has tolerated ice water during this shift, drinking independently. No bm this shift. Blood pressure 101/64,pulse 75, temperature 36.5 ??C (97.7 ??F), resp. rate 20, height 1.753 m, weight 114.8 kg, SpO2 93 %. Nursing Concerns: Pt remained free of falls, free of fever during this shift. POC was discussed as needed. SR remained up x4, bed low, locked, call vasquez in place. Patient/Family Concerns: As above. Barriers Toward Goals/Discharge: per medical team. Mental Status: Pt is oriented to self, situation. Ongoing reorientation provided, and pt is able toverbalize information when he is newly oriented to the information. Pain Control: per nov. Mobility: As above. * Williams Murray DO - 01/18/2023 5:53 AM EDT Images from the original note were not included. [facility] - Cardiology Teaching Service Progress Note Service Pager (call #1, internal sales engineer) #[phone] Service Pager (call #2, senior) #[phone] PATIENT IDENTIFICATION: Patient Name: Raghu Rosenthal Age: 77yrs Sex: Male : 1945 MEG: [id number] Admit Date: 12/28/2022 1:45 PM Today's Date: 01/18/2023 Length of Stay: 20 days Admit Diagnosis: NSTEMI (non-ST elevated myocardial infarction) ([facility]) [I21.4] Primary Diagnosis: S/P TAVR (transcatheter aortic valve replacement) Room: CV514/CV4 PCP: Williams Yip MD Primary Insurance: @[employer]@ Secondary Insurance: @[employer]@ HOSPITAL COURSE Raghu Rosenthal is a 77yrs Male with PMH of CAD s/p CABG x2 in [place] 10 years ago, HTN, HLD, porcine AVR who initially presented to [place] ED with complaints of SOB and midchest pressure. Patient lives in [place] with his , and is visiting [facility] for the next 3 months. He recently had a ziopatchplaced by the [facility] on 12/27. Following this procedure he had worsening SOB associated with fatigue, malaise and generalized weakness. EMS was called and he was brought to [place] ED. On arrival he was noted to be in mild respiratory distress and required bipap. WBC of 19. EKG without NUNO, troponin 1.197. CXR consistent with mild interstitial edema, and a small left pleural effusion. He was given nitro sublingual and morphine, and started on BID lovenox. He was admitted to the ICU at [place]. He was started on empiric vanc, cefepime for possible infection. He was hypotensive requiring levophed with a differential of cardiogenic vs septic shock. He had a repeat EKG done on 12/28 with a new LBBB. His troponin trended as high as 39. Given concerns for acute coronary syndrome, he was transferred to [facility] for further management. On arrival to CICU, patient is awake and alert. He is on low dose levophed. He is warm to the touchand appears well perfused. POCUS with EF visually estimated at 45%. Breathing comfortably on room air. He underwent a R/LHC 12/28/2022 showing severe three-vessel disease with patent AVERY to LAD, intermediate stenosis in mid RCA, 60% distal left main stenosis, culprit for his VA appears to be an occluded SVG to ramus graft. He was also noted to have severely degenerated bioprosthetic aortic valve, invasive gradients reviewed severely stenotic with mean gradient over 40 mmHg. He was transferred out to the [facility] service while workup for TAVR was done. He was transferred back to CICU on 01/04for optimization prior to TAVR. He underwent TAVR on 01/08. Transferred back to CICU on 01/10 for ongoing heart failure management. 01/10 Patient transferred back to CICU from CVICU post TAVR for ongoing decompensated heart failure.On arrival to CICU pt is awake and alert, hemodynamically stable. His only complaint is a sore throat. Denies chest pain or shortness of breath. On a bumex drip. 01/11 Transfer to CIU. 01/12 MARINE TECHNICIAN-P defibrillator placed. Started on rocephin for UTI. 01/13 Bruno catheter exchanged due to CAUTI. CVL dced. UCx grew pseudamonas. Recephin Dced and cefepime started. 01/14 Pain and hematoma over site of pacemaker insertion, Hgb stable. 2 runs of VT self limiting. Lopressor started. 01/16: will received last does of IV cefipime today for pseudomonas UTI, per ID no need for cipro. Switched from bumex gtt 1mg/hr to Torsemide 60 mg PO BID. 01/17: continue PO torsemide 60 mg BID. Plan to DC to IPR tomorrow or Sunday pending bed availability. 01/18: pulled bruno. Patient walking from bed to chair well. Continue Torsemide 60 mg PO BID. Plan to DC to [facility] tomorrow. ASSESSMENT & PLAN: Raghu Rosenthal is a 77yrs old Male with PMH of CAD s/p CABG x2 in [place] 10 years ago, HTN, HLD, porcine AVR who initially presented to [place] ED with complaints of SOB and midchest pressure. Transferred to [facility] in cardiogenic shock and admitted to CICU. After a brief floor stay pt was transferredback to the CICU. Valve in valve TAVR done 01/08/23. Now downgraded to CIU. 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 Given risk for CHB EP to consider pacemaker. - MARINE TECHNICIAN-P device placed 01/12 HFrEF Hematoma TTE 01/09 40-45%. Patient initially presenting with cardiogenic shock and reduced EF on 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 years ago MARINE TECHNICIAN-P device placed 01/12 - Aldactone 25mg qd - Toprol-XL 25 mg daily - Advance GDMT as tolerated - continue Torsemide 60 mg PO BID. - PT/OT - will touch base with IPR tomorrow for transfer given patient medically stable - Hematoma over MARINE TECHNICIAN-P, EP consulted, will place weighted bag over, no discharge or overt signs of infection. Hematoma improving greatly. - AdvHF following Cardiogenic Shock - resolved NSTEMI Nonsustained VT New LBBB, chest pain. [facility] with Severe three-vessel disease with patent AVERY to LAD, intermediate stenosis in mid RCA, 60% distal left main stenosis. Culprit for his VA appears to be an occluded SVG to ramus graft. There is flow in the ramus with proximal 70% stenosis. 2x nonsustained VT 01/14 - ASA 81mg qd - Plavix 75mg qd - Pt not tolerant of statins Acute Hypoxic Respiratory Failure - Wean O2 as tolerated FILIBERTO on CKD II UTI Urinary Retention Baseline creatinine 1.6. Urine cx grew Pseudomonas. Bruno exchanged 01/13 - Monitor - Renally dose meds - Avoid nephrotoxins - Cefepime x 3 days complete HTN - Advance antihypertensives as tolerated HLD Pt does not tolerate statins. - Fenofibrate 145mg qam FEN: Fluids: none Electrolytes: Will replace to keep K >4, Phos >3, Mg >2 Nutrition: cardiac diet DVT Prophylaxis: Lovenox 40 mg daily Dispo: Plan to DC to [facility] tomorrow or Sunday pending bed availability. Code Status: Full Code The assessment and plan above was discussed with the attending physician, Abdoulaye Canales MD Interval Events (Previous 24-hrs): NAEON SUBJECTIVE: Patient says he is feeling better today. He does seem confused again this morning, but seems to always improve by the afternoon. He denies chest pain, SOB. Review of Systems: Review of Systems Constitutional: Negative for chills and fever. HENT: Negative for sore throat. Eyes: Negative for redness. Respiratory: Negative for shortness of breath. Cardiovascular: Positive for leg swelling. Negative for chest pain. Gastrointestinal: Negative for abdominal pain, diarrhea, nausea and vomiting. Genitourinary: Negative for dysuria. Musculoskeletal: Negative for myalgias. Skin: Negative for rash. Neurological: Negative for speech difficulty. Psychiatric/Behavioral: Negative for agitation. OBJECTIVE: Vitals: Blood pressure 116/58, pulse 83, temperature 36.5 ??C (97.7 ??F), resp. rate 18, height 1.753 m, weight 114.8 kg, SpO2 96 %. Max Blood Pressure: Systolic (24hrs), Av , Min:101 , Max:146 Diastolic (24hrs), Av, Min:54, Max:69 Physical Exam: General: NAD lying comfortably in bed, not in distress Eyes: conjunctivae sclerae clear HENT: NC/AT Neck: supple, +JVD, no bruit Lungs: CTAB no w/r/r. Good air movement. Heart: RRR, normal S1, S2, systolic murmur, no gallops, or rubs. Abdomen: soft, nontender, nondistended, + bowel sounds, no organomegally, or masses Neuro: Alert, oriented X3, no focal neurological signs, moving all 4 extremities, Extremities: 1+ pitting edema in LE bilaterally. Improving daily Skin: hematoma of left pectoralis PM site has improved greatly. No TTP today. Psych: normal affect Patient Data: I/O's: Intake/Output Summary (Last 24 hours) at 01/18/2023 1136 Last data filed at 01/18/2023 0400 Gross per 24 hour Intake 390 ml Output 1600 ml Net -1210 ml Weight change: Height/Weight: Admission:Weight: 121.7 kg Today's: Weight: 114.8 kg BMI: Body mass index is 37.36 kg/m??. Current Medications: aspirin, 81 mg, DAILY bisacodyL, 5 mg, DAILY clopidogreL, 75 mg, DAILY enoxaparin (LOVENOX) injection, 40 mg, DAILY AT 1600 escitalopram, 20 mg, DAILY fenofibrate, 145 mg, WITH BREAKFAST ferrous sulfate, 325 mg, Q48HR folic acid, 1 mg, DAILY gabapentin, 100 mg, QHS insulin lispro, , QID-WITH MEALS and BEDTIME melatonin, 5 mg, QHS metoprolol succinate XL, 25 mg, DAILY pantoprazole, 40 mg, 0600 polyethylene glycol, 17 g, DAILY sodium chloride, 3 mL, Q8HR spironolactone, 25 mg, DAILY thiamine mononitrate, 100 mg, DAILY tiotropium, 1 Capsule, RTDAILY torsemide, 60 mg, BID albuterol HFA, 2 Puff, [id number] dextrose, 15 g, PRN dextrose 50% in water, 25 mL, PRN dextrose 50% in water, 50 mL, PRN ondansetron, 4 mg, D4QR-SQU oxyCODONE, 5 mg, G8XN-GTH phenoL, 1 [place], PRN Lab Results: Recent Labs 01/15/23 0417 01/16/2335401/17/23351 WBC 8.22 8.86 9.26 HEMOGLOBIN 8.6* 8.8* 9.1* HEMATOCRIT 28.1* 28.0* 30.0* NEUTROPHIL # 5.39 5.29 5.07 NEUTROPHIL % 66 59 54 MCV 96.6 97.2 96.8 PLATELET 127* 123* 116* Recent Labs 01/17/23 0352 01/17/23 0734 01/17/[id number]/17/[id number]/18/23 0457 01/18/23 0737 SODIUM 131* 131* 133* POTASSIUM 3.2* 3.7 3.5 CHLORIDE 92* 92* 94* GLUCOSE POCT < > 115* 121* GLUCOSE 107* 108* 110* BUN 90* 86* 82* CREATININE 1.51* 1.61* 1.54* < > = values in this interval not displayed. Recent Labs 01/17/23 0352 01/17/237 01/18/23 0000 MAGNESIUM 1.7 1.7 2.2 Recent Labs 01/16/23 0355 01/17/2335101/18/23 0457 PHOSPHORUS 2.6 2.7 2.6 Diagnostics (Reviewed): XRAY CHEST 1 VIEW Result Date: 01/14/2023 IMPRESSION: Improving right upper lobe and left basilar pulmonary opacities. This report was dictated by Lan Hammond M.D. Reading Doctor: Jacek Severino Electronic Signature by: Jacek Severino ECHO Result Date: 01/15/2023 Reason for Exam: Aortic Valve Disorder Date of Service: 01/08/2023 Patient Height 175.0 cm Patient Weight 120.0 kg Systolic Pressure 103 mmHg Diastolic Pressure 69 mmHg Study Location [facility] BSA 2.3 m^2Procedure: A two-dimensional transthoracic echocardiogram with color flow and Doppler was performedin limited views only. Study Quality: Technically adequate. MMode 2D Measurements & Calculations LVOT diam - 2.4 cm LVOT area - 4.6 cm^2 LVOT area(traced) - 4.9 cm^2 Doppler Measurements & Calculations Ao V2 max - 169.3 cm/sec Ao max PG - 11.5 mmHg Ao max PG (full) - 9.6 mmHg Ao V2 mean - 105.9 cm/sec Ao mean PG - 5.3 mmHg Ao mean PG (full) - 4.4 mmHg Ao V2 VTI - 34.2 cm CHELITA(I,A) - 1.8 cm^2 CHELITA(I,D) - 1.8 cm^2 CHELITA(V,A) - 1.9 cm^2 CHELITA(V,D) - 1.9 cm^2 LVOT max gradient - 1.9 mmHg LV V1 mean PG - 0.93 mmHg LVOT max bee - 69.2 cm/sec LV V1 mean - 42.5 cm/sec LV V1 VTI - 13.3 cm SV(LVOT) -61.8 ml SI(LVOT) - 26.6 ml/m^2 Conclusion Limited echocardiogram in the OR during TAVR. Pre-TAVR Moderatelty reduced LV function, EF 35-40%. Severe prosthetic aortic stenosis. Mild mitral regurgitatio n. Post TAVR Moderately reduced LV function, EF 35-40%. S/p TAVR with 26 mm Evolut FX (within 25 mmMagna) post dilated with 23 mm True balloon. Peak AV bee 1.7 m/s. MG 5 mmHg. CHELITA 2 cm2. No paravalvular leak. InterpretingPhysician:Interpreting Physician: Timothy Monroe, electronically signed on 2023-01-15 10:23:56.353 ECHO Result Date: 01/10/2023 Reason for Exam: Aortic Valve Replacement Date of Service: 01/09/2023 Patient Height 175.0 cm Patient Weight 125.0 kg Systolic Pressure 148 mmHg Diastolic Pressure 51 mmHg Study Location [facility] BSA 2.4 m^2 Procedure: A complete two- dimensional transthoracic echocardiogram was performed (2D, M-mode, spectral and color flow Doppler). Study Quality: Technically adequate. A contrast injection of Definity was performed to improve assessment of LV function. Left Ventricle: The left ventricle is mildly dilated. There is normal left ventricular wall thickness. LVEDD 5.9 cm. Ejection Fraction = 40-45%. Abnormal (paradoxical) septal motion consistent with LBBB. Mild to moderate global hypokinesis. Inferi or and lateral vega move best. There is no thrombus. LV diastolic function can not be accurately assessed. Left Atrium: The left atrium is mildly dilated. Right Atrium: Right atrial size is normal. Right Ventricle: The right ventricle is normal in size and function. Aortic Valve: The peak aortic valve velocity 307 cm/s. Aortic mean pressure gradient= 18 mmHg. VTI ratio 0.39. No paravalvular leak. S/p [id number] TAVR with 26 mm Evolut FX (within 25 mm Magna, post dilated with 23 mm True balloon) on 01/08/23. Well-seated, normally functioning aortic prosthesis. Mitral Valve: The mitral valve is normal in structure and function. There is mild mitral regurgitation. Tricuspid Valve: Structurally normal tricuspid valve. There was insufficient TR detected to calculate RV systolic pressure. Pulmonic Valve: The Pulmonic Valve is partially seen. Mild pulmonic valvular regurgitation. Arteries:The aortic root is normal size. Venous: Systolic blunting was observed in the RUPV spectral Dopplerflow pattern. The inferior vena cava is normal in size, with a normal collapsibility index. Pericardium/Pleura: There is no pericardial effusion. MMode 2D Measurements & Calculations IVSd - 1.1 cm LVIDd - 5.9 cm LVIDs - 4.1 cm LVPWd - 1.5 cm IVS/LVPW - 0.7 FS - 31.4 % EDV(Teich) - 176.1 ml ESV(Teich) - 73.3 ml EF(Teich) - 58.4 % EF (est.) - 44.4 % EDV(cubed) - 209.9 ml ESV(cubed) - 67.8 ml EF(cubed) - 67.7 % LV mass(C)d - 341.4 grams LV mass(C)dI - 144.4 grams/m^2 SV(Teich) - 102.8 ml SI(Teich) - 43.5 ml/m^2 SV(cubed) - 142.1 ml SI(cubed) - 60.1 ml/m^2 Ao root diam - 2.7 cm Ao root area -5.6 cm^2 LA dimension - 4.7 cm LA/Ao - 1.8 LVOT diam - 2.4 cm LVOT area - 4.4 cm^2 LVOT area(traced) - 4.5 cm^2 LVLd ap4 - 10 cm EDV(MOD-sp4) - 187 ml LVLs ap4 - 9.6 cm ESV(MOD-sp4) - 106 ml EF(MOD-sp4) - 43.3 % LVLd ap2 - 9.7 cm EDV(MOD-sp2) - 154 ml LVLs ap2 - 8.6 cm ESV(MOD-sp2) - 76 ml EF(MOD-sp2) - 50.6 % SV(MOD-sp4) - 81 ml SI(MOD-sp4) - 34.3 ml/m^2 SV(MOD- sp2) - 78 ml SI(MOD-sp2) - 33 ml/m^2 Doppler Measurements & Calculations MV E max bee - 121 cm/sec MV A max bee - 113 cm/sec MV E/A - 1.1 MV dec time - 0.26 sec Ao V2 max - 293.1 cm/sec Ao max PG - 34.4 mmHg Ao max PG (full) - 28.5 mmHg Ao V2 mean - 187.7 cm/sec Ao mean PG - 16.9 mmHg Ao mean PG (full) - 13.8 mmHg Ao V2 VTI - 59.8 cm CHELITA(I,A) - 1.8 cm^2 CHELITA(I,D) - 1.8 cm^2 CHELITA(V,A) - 1.8 cm^2 CHELITA(V,D) - 1.8 cm^2 LVOT max gradient - 5.9 mmHg LV V1 mean PG - 3 mmHg LVOT max bee - 121.3 cm/sec LV V1 mean - 79.8 cm/sec LV V1 VTI- 25 cm SV(Ao) - 333 ml SI(Ao) - 140.8 ml/m^2 SV(LVOT) - 109.9 ml SI(LVOT) - 46.5 ml/m^2 PA V2 max - 173.7 cm/sec PA max PG - 12.1 mmHg Conclusion The left ventricle is mildly dilated. Ejection Fraction = 40-45%. Abnormal (paradoxical) septal motion consistent with LBBB. The right ventricle is normal in size and function. The left atrium is mildly dilated. S/p [id number] TAVR with 26 mm Evolut FX (within 25 mm Magna, post dilated with 23 mm True balloon) on 01/08/23. Well- seated, normally functioning aortic prosthesis. No paravalvular leak. The peak aortic valve velocity 3.1 m/s. Aortic mean pressure gradient= 18 mmHg. VTI ratio 0.39. There is mild mitral regurgitation. InterpretingPhysician:Interpreting Physician: Timothy Monroe, electronically signed on 2023-01-10 16:37:24.54 ECHO Result Date: 12/28/2022 Reason for Exam: Chest Pain Date of Service: 12/28/2022 Interpretation Summary There is no comparison study available. Patient Height 175.0 cm Patient Weight 127.0 kg Systolic Pressure 132 mmHg Diastolic Pressure 53 mmHg Study Location [facility] BSA 2.4 m^2 Procedure: A complete two-dimensional transthoracic echocardiogram was performed (2D, M-mode, spectral and color flow Doppler). Study Quality: Fair. The study was technically difficult with many images being suboptimal in quality. A contrast injection of Definity was performed to improve assessment of LV function. Left Ventricle: The left ventricular mass index is increased. There is mild concentric left ventricular hypertrophy. LVEDV 299 ml with BSA 2.4 m2 The ejection fraction measured by 2D BP MOD is41%. The LV ejection fraction is severely decreased. Akinesis of the apex and periapical segments, anteroseptum with better motion of the LV base representing, until proven otherwise, LAD territory issues on a background of moderate aortic stenosis. There is no thrombus. LV diastolic function can not be accurately assessed. E/E' averaged>13 Left Atrium: The left atrial volume is mildly increased. Right Atrium: Right atrial size is normal. Right Ventricle: The right ventricular systolic function is normal. Aortic Valve: Focal calcification. The aortic valve is not well visualized. The peak aortic valve velocity 385 cm/s. Aortic mean pressure gradient= 32 mmHg. The aortic valve velocity ratio was calculated at 0.27. Mitral Valve: Both leaflets are pliable and mobile. There is trace mitral regurgitation. Tricuspid Valve: The tricuspid valve is not well visualized. There was insufficient TR detected to calculate RV systolic pr essure. Pulmonic Valve: The pulmonic valve is not well visualized. Trace pulmonic valvular regurgitation. Arteries: The aortic root is normal size. There is aortic root sclerosis/calcification. Aortic arch not seen well. Venous: Severely dilated inferior vena cava. Pericardium/Pleura: There is no pericardial effusion. MMode 2D Measurements & Calculations IVSd - 1.2 cm LVIDd - 5.9 cm LVIDs - 4.7 cm LVPWd - 1.1 cm IVS/LVPW - 1.1 FS - 20.9 % EDV(Teich) - 172.5 ml ESV(Teich) - 100.2 ml EF(Teich) - 41.9 % EF (est.) - 41.1 % EDV(cubed) - 204.3 ml ESV(cubed) - 101 ml EF(cubed) - 50.6 % LV mass(C)d - 277.7 grams LV mass(C)dI - 116.6 grams/m^2 SV(Teich) - 72.4 ml SI(Teich) - 30.4 ml/m^2 SV(cubed) - 103.3 ml SI(cubed) - 43.4 ml/m^2 Ao root diam - 3.4 cm Ao root area - 9.3 cm^2 LA dimension - 4.7 cm LA/Ao - 1.4 LVLd ap4 - 11.6 cm EDV(MOD-sp4) - 289 ml LVLs ap4 - 10.1 cm ESV(MOD-sp4) - 176 ml EF(MOD-sp4) - 39.1 % LVLd ap2 - 11.3 cm EDV(MOD-sp2) - 302 ml LVLs ap2 - 10.1 cm ESV(MOD-sp2) - 176 ml EF(MOD-sp2) - 41.7 % SV(MOD-sp4) - 113 ml SI(MOD-sp4) - 47.5 ml/m^2 SV(MOD-sp2) - 126 ml SI(MOD-sp2) - 52.9 ml/m^2 Doppler Measurements & Calculations MV E max bee - 93.3 cm/sec MV A max bee - 113.7 cm/sec MV E/A - 0.82 MV dec time - 0.17 sec Ao V2 max - 330.8 cm/sec Ao max PG - 46.5 mmHg Ao max PG (full) - 42.4 mmHg Ao V2 mean - 223.4 cm/sec Ao mean PG - 24.8 mmHg Ao mean PG (full) - 22.8 mmHg Ao V2 VTI - 64.6 cm LVOT max gradient - 4.2 mmHg LV V1 mean PG - 2 mmHg LVOT max bee - 101.7 cm/sec LV V1 mean - 68.2 cm/sec LV V1 VTI - 20.4 cm SV(Ao) - 600 ml SI(Ao) - 252 ml/m^2 PA V2 max - 121.7 cm/sec PA max PG - 5.9 mmHg Conclusion The study was technically difficult with many images beingsuboptimal in quality. The left ventricular mass index is increased. E/E' averaged >13 The ejection fraction measured by 2D BP MOD is41%. Akinesis of the apex and periapical segments, anteroseptumwith better motion of the LV base representing, until proven otherwise, LAD territory issues on a background of moderate aortic stenosis. InterpretingPhysician:Interpreting Physician: Papi Delcid, electronically signed on 2022-12-28 16:16:52.52 EKG: No results found for this or any previous visit (from the past 72 hour(s)). Electronically signed by: Williams Murray [facility] Linen Supervisor Associated attestation - Abdoulaye Canales MD - 02/04/2023 8:15 PM EDT Cardiology Attending Note Patient Name: Raghu Rosenthal Gender: Male Age: 77yrs :1945 MR #: [id number] [facility] #:[id number] Attending Provider: No att. providers found I saw and evaluated Raghu Rosenthal, a 77yrs-year old Male with cardiology inpatient resident/consult/CICU team on 01/18/2023 and agree with the facts as documented in the note. Had a urine output of 2.1 L yesterday with a total negative of 22 L. He is currently on p.o. antibiotics with a creatinine of 1.5. Edema has improved to 1+. Bruno is removed. Patient has been increasingly ambulant walking from bed to chair well. Potential discharge to [facility] tomorrow. Electronically signed by: Abdoluaye Canales MD, [facility] [place] Parking Line Painter of Cardiology [facility] * Nela Olmos RN - 01/18/2023 1:33 AM EDT Problem: Adult Inpatient Plan of Care Goal: Plan of Care Review Outcome: Ongoing, Progressing Goal: Patient-Specific Goal (Individualized) Outcome: Ongoing, Progressing Goal: Absence of Hospital-Acquired Illness or Injury Outcome: Ongoing, Progressing Goal: Optimal Comfort and Wellbeing Outcome: Ongoing, Progressing Goal: Readiness for Transition of Care Outcome: Ongoing, Progressing Problem: Adjustment to Illness (Acute Coronary Syndrome) Goal: Optimal Adaptation to Illness Outcome: Ongoing, Progressing Problem: Dysrhythmia (Acute Coronary Syndrome) Goal: Normalized Cardiac Rhythm Outcome: Ongoing, Progressing Problem: Cardiac-Related Pain (Acute Coronary Syndrome) Goal: Absence of Cardiac-Related Pain Outcome: Ongoing, Progressing Problem: Hemodynamic Instability (Acute Coronary Syndrome) Goal: Effective Cardiac Pump Function Outcome: Ongoing, Progressing Problem: Tissue Perfusion (Acute Coronary Syndrome) Goal: Adequate Tissue Perfusion Outcome: Ongoing, Progressing Problem: Fall Injury Risk Goal: Absence of Fall and Fall-Related Injury Outcome: Ongoing, Progressing Goal: Absence of Fall and Fall-Related Injury Outcome: Ongoing, Progressing Goal: Absence of Fall and Fall-Related Injury Outcome: Ongoing, Progressing Problem: Pain Acute Goal: Acceptable Pain Control and Functional Ability Outcome: Ongoing, Progressing * Flip Moscoso RN - 01/17/2023 6:50 PM EDT Patient alert and orientedx2 this shift. No acute events. Patient intermittently confused throughout shift. Reorientation provided. Patient ambulated to chair and back to bed this shift. VSS. Will report to oncoming RN. * Williams Murray, DO - 01/17/2023 2:50 PM EDT Images from the original note were not included. [facility] - Cardiology Teaching Service Progress Note Service Pager (call #1, internal sales engineer) #[phone] Service Pager (call #2, senior) #[phone] PATIENT IDENTIFICATION: Patient Name: Raghu Rosenthal Age: 77yrs Sex: Male : 1945 MEG: [id number] Admit Date: 12/28/2022 1:45 PM Today's Date: 01/17/2023 Length of Stay: 20 days Admit Diagnosis: NSTEMI (non-ST elevated myocardial infarction) ([facility]) [I21.4] Primary Diagnosis: S/P TAVR (transcatheter aortic valve replacement) Room: [facility] PCP: Williams Yip MD Primary Insurance: @[email or web address]@ Secondary Insurance: @[email or web address]@ HOSPITAL COURSE Raghu Rosenthal is a 77yrs Male with PMH of CAD s/p CABG x2 in [place] 10 years ago, HTN, HLD, porcine AVR who initially presented to [place] ED with complaints of SOB and midchest pressure. Patient lives in [place] with his , and is visiting [facility] for the next 3 months. He recently had a [facility] by [facility] on 12[facility]. Following this procedure he had worsening SOB associated with fatigue, malaise and generalized weakness. EMS was called and he was brought to [place] ED. On arrival he was noted to be in mild respiratory distress and required bipap. WBC of 19. EKG without NUNO, troponin 1.197. CXR consistent with mild interstitial edema, and a small left pleural effusion. He was given nitro sublingual and morphine, and started on BID lovenox. He was admitted to the ICU at [place]. He was started on empiric vanc, cefepime for possible infection. He was hypotensive requiring levophed with a differential of cardiogenic vs septic shock. He had a repeat EKG done on 12/28 with a new LBBB. His troponin trended as high as 39. Given concerns for acute coronary syndrome, he was transferred to [facility] for further management. On arrival to CICU, patient is awake and alert. He is on low dose levophed. He is warm to the touchand appears well perfused. POCUS with EF visually estimated at 45%. Breathing comfortably on room air. He underwent a R/LHC 12/28/2022 showing severe three-vessel disease with patent AVERY to LAD, intermediate stenosis in mid RCA, 60% distal left main stenosis, culprit for his VA appears to be an occluded SVG to ramus graft. He was also noted to have severely degenerated bioprosthetic aortic valve, invasive gradients reviewed severely stenotic with mean gradient over 40 mmHg. He was transferred out to the [facility] cards service while workup for TAVR was done. He was transferred back to CICU on 01/04for optimization prior to TAVR. He underwent TAVR on 01/08. Transferred back to CICU on 01/10 for ongoing heart failure management. 01/10 Patient transferred back to CICU from CVICU post TAVR for ongoing decompensated heart failure.On arrival to CICU pt is awake and alert, hemodynamically stable. His only complaint is a sore throat. Denies chest pain or shortness of breath. On a bumex drip. 01/11 Transfer to CIU. 01/12 MARINE TECHNICIAN-P defibrillator placed. Started on rocephin for UTI. 01/13 Bruno catheter exchanged due to CAUTI. CVL dced. UCx grew pseudamonas. Recephin Dced and cefepime started. 01/14 Pain and hematoma over site of pacemaker insertion, Hgb stable. 2 runs of VT self limiting. Lopressor started. 01/16: will received last does of IV cefipime today for pseudomonas UTI, per ID no need for cipro. Switched from bumex gtt 1mg/hr to Torsemide 60 mg PO BID. 01/17: continue PO torsemide 60 mg BID. Plan to DC to [facility] tomorrow or Sunday pending bed availability. ASSESSMENT & PLAN: Raghu Rosenthal is a 77yrs old Male with PMH of CAD s/p CABG x2 in [place] 10 years ago, HTN, HLD, porcine AVR who initially presented to [place] ED with complaints of SOB and midchest pressure. Transferred to [facility] in cardiogenic shock and admitted to CICU. After a brief floor stay pt was transferredback to the CICU. Valve in valve TAVR done 01/08/23. Now downgraded to CIU. 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 Given risk for CHB EP to consider pacemaker. - MARINE TECHNICIAN-P device placed 01/12 HFrEF Hematoma TTE 01/09 40-45%. Patient initially presenting with cardiogenic shock and reduced EF on 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 years ago MARINE TECHNICIAN-P device placed 01/12 - Aldactone 25mg qd - Toprol-XL 25 mg daily - Advance GDMT as tolerated - Switched from bumex gtt 1mg/hr to Torsemide 60 mg PO BID. - PT/OT - will touch base with IPR tomorrow for transfer given patient medically stable - Hematoma over MARINE TECHNICIAN-P, EP consulted, will place weighted bag over, no discharge or overt signs of infection - AdvHF following Cardiogenic Shock - resolved NSTEMI Nonsustained VT New LBBB, chest pain. [facility] with Severe three-vessel disease with patent AVERY to LAD, intermediate stenosis in mid RCA, 60% distal left main stenosis. Culprit for his VA appears to be an occluded SVG to ramus graft. There is flow in the ramus with proximal 70% stenosis. 2x nonsustained VT 01/14 - ASA 81mg qd - Plavix 75mg qd - Pt not tolerant of statins Acute Hypoxic Respiratory Failure - Wean O2 as tolerated FILIBERTO on CKD II UTI Urinary Retention Baseline creatinine 1.6. Urine cx grew Pseudomonas. Bruno exchanged 01/13 - Monitor - Renally dose meds - Avoid nephrotoxins - Cefepime x 3 days complete HTN - Advance antihypertensives as tolerated HLD Pt does not tolerate statins. - Fenofibrate 145mg qam FEN: Fluids: none Electrolytes: Will replace to keep K >4, Phos >3, Mg >2 Nutrition: cardiac diet DVT Prophylaxis: Lovenox 40 mg daily Dispo: Plan to DC to [facility] tomorrow or Sunday pending bed availability. Code Status: Full Code The assessment and plan above was discussed with the attending physician, Abdoulaye Canales MD Interval Events (Previous 24-hrs): NAEON SUBJECTIVE: Patient says he is feeling better today. He does seem slightly confused this morning but is alert and oriented this afternoon. . He denies chest pain, SOB. Review of Systems: Review of Systems Constitutional: Negative for chills and fever. HENT: Negative for sore throat. Eyes: Negative for redness. Respiratory: Positive for shortness of breath. Cardiovascular: Positive for leg swelling. Negative for chest pain. Gastrointestinal: Negative for abdominal pain, diarrhea, nausea and vomiting. Genitourinary: Negative for dysuria. Musculoskeletal: Negative for myalgias. Skin: Negative for rash. Neurological: Negative for speech difficulty. Psychiatric/Behavioral: Negative for agitation. OBJECTIVE: Vitals: Blood pressure 121/55, pulse 76, temperature 36.4 ??C (97.5 ??F), resp. rate 20, height 1.753 m, weight 114.8 kg, SpO2 98 %. Max Blood Pressure: Systolic (24hrs), Av , Min:101 , Max:160 Diastolic (24hrs), Av, Min:50, Max:80 Physical Exam: General: NAD lying comfortably in bed, not in distress Eyes: conjunctivae sclerae clear HENT: NC/AT Neck: supple, +JVD, no bruit Lungs: CTAB no w/r/r. Good air movement. Heart: RRR, normal S1, S2, systolic murmur, no gallops, or rubs. Abdomen: soft, nontender, nondistended, + bowel sounds, no organomegally, or masses Neuro: Alert, oriented X3, no focal neurological signs, moving all 4 extremities, Extremities: 1+ pitting edema in RLE, no edema of LLE. Skin: Soft ball sized mass on left chest wall over pacemaker site. TTP. - improving Psych: normal affect Patient Data: I/O's: Intake/Output Summary (Last 24 hours) at 01/17/2023 1450 Last data filed at 01/17/2023 1200 Gross per 24 hour Intake 990 ml Output 3175 ml Net -2185 ml Weight change: Height/Weight: Admission:Weight: 121.7 kg Today's: Weight: 114.8 kg BMI: Body mass index is 37.36 kg/m??. Current Medications: aspirin, 81 mg, DAILY bisacodyL, 5 mg, DAILY clopidogreL, 75 mg, DAILY enoxaparin (LOVENOX) injection, 40 mg, DAILY AT 1600 escitalopram, 20 mg, DAILY fenofibrate, 145 mg, WITH BREAKFAST ferrous sulfate, 325 mg, Q48HR folic acid, 1 mg, DAILY gabapentin, 100 mg, QHS hydrOXYzine, 50 mg, ONCE insulin lispro, , QID-WITH MEALS and BEDTIME melatonin, 5 mg, QHS metoprolol succinate XL, 25 mg, DAILY pantoprazole, 40 mg, 0600 polyethylene glycol, 17 g, DAILY [Held by Provider] sevelamer carbonate, 0.8 g, TID-WITH MEALS sodium chloride, 3 mL, Q8HR spironolactone, 25 mg, DAILY thiamine mononitrate, 100 mg, DAILY tiotropium, 1 Capsule, RTDAILY torsemide, 60 mg, BID [Held by Provider] traZODone, 100 mg, QPM albuterol HFA, 2 Puff, [id number] dextrose, 15 g, PRN dextrose 50% in water, 25 mL, PRN dextrose 50% in water, 50 mL, PRN ondansetron, 4 mg, [id number] oxyCODONE, 5 mg, [id number] phenoL, 1 [place], PRN Lab Results: Recent Labs 01/15/23 0417 01/16/23 0355 01/17/23 0352 WBC 8.22 8.86 9.26 HEMOGLOBIN 8.6* 8.8* 9.1* HEMATOCRIT 28.1* 28.0* 30.0* NEUTROPHIL # 5.39 5.29 5.07 NEUTROPHIL % 66 59 54 MCV 96.6 97.2 96.8 PLATELET 127* 123* 116* Recent Labs 01/16/23 0355 01/16/23 0741 01/16/23 1510 01/16/23 1542 01/17/23 0352 01/17/23 0734 01/17/23 1133 SODIUM 131* 130* 131* POTASSIUM 3.8 3.7 3.2* CHLORIDE 93* 92* 92* GLUCOSE POCT < > < > 119* 101* GLUCOSE 96 121* 107* BUN 94* 97* 90* CREATININE 1.67* 1.60* 1.51* < > = values in this interval not displayed. Recent Labs 01/16/23 0355 01/16/23 1510 01/17/23 0352 MAGNESIUM 2.0 1.8 1.7 Recent Labs 01/15/23 0417 01/16/23 0355 01/17/23 0352 PHOSPHORUS 2.8 2.6 2.7 Diagnostics (Reviewed): XRAY CHEST 1 VIEW Result Date: 01/14/2023 IMPRESSION: Improving right upper lobe and left basilar pulmonary opacities. This report was dictated by Lan Hammond M.D. Reading Doctor: Jacek Severino Electronic Signature by: Jacek Severino XRAY CHEST 1 VIEW Result Date: 01/12/2023 IMPRESSION: Interval left-sided 3-lead pacer, no pneumothorax. Similar right suprahilar and left basilar pulmonary opacities with small bilateral pleural effusions. Reading Doctor: Miller Mills Electronic Signature by: Miller Mills ECHO Result Date: 01/15/2023 Reason for Exam: Aortic Valve Disorder Date of Service: 01/08/2023 Patient Height 175.0 cm Patient Weight 120.0 kg Systolic Pressure 103 mmHg Diastolic Pressure 69 mmHg Study Location [facility] BSA 2.3 m^2Procedure: A two-dimensional transthoracic echocardiogram with color flow and Doppler was performedin limited views only. Study Quality: Technically adequate. MMode 2D Measurements & Calculations LVOT diam - 2.4 cm LVOT area - 4.6 cm^2 LVOT area(traced) - 4.9 cm^2 Doppler Measurements & Calculations Ao V2 max - 169.3 cm/sec Ao max PG - 11.5 mmHg Ao max PG (full) - 9.6 mmHg Ao V2 mean - 105.9 cm/sec Ao mean PG - 5.3 mmHg Ao mean PG (full) - 4.4 mmHg Ao V2 VTI - 34.2 cm CHELITA(I,A) - 1.8 cm^2 CHELITA(I,D) - 1.8 cm^2 CHELITA(V,A) - 1.9 cm^2 CHELITA(V,D) - 1.9 cm^2 LVOT max gradient - 1.9 mmHg LV V1 mean PG - 0.93 mmHg LVOT max bee - 69.2 cm/sec LV V1 mean - 42.5 cm/sec LV V1 VTI - 13.3 cm SV(LVOT) -61.8 ml SI(LVOT) - 26.6 ml/m^2 Conclusion Limited echocardiogram in the OR during TAVR. Pre-TAVR Moderatelty reduced LV function, EF 35-40%. Severe prosthetic aortic stenosis. Mild mitral regurgitatio n. Post TAVR Moderately reduced LV function, EF 35-40%. S/p TAVR with 26 mm Evolut FX (within 25 mmMagna) post dilated with 23 mm True balloon. Peak AV bee 1.7 m/s. MG 5 mmHg. CHELITA 2 cm2. No paravalvular leak. InterpretingPhysician:Interpreting Physician: Timothy Monroe, electronically signed on 2023-01-15 10:23:56.353 ECHO Result Date: 01/10/2023 Reason for Exam: Aortic Valve Replacement Date of Service: 01/09/2023 Patient Height 175.0 cm Patient Weight 125.0 kg Systolic Pressure 148 mmHg Diastolic Pressure 51 mmHg Study Location [facility] BSA 2.4 m^2 Procedure: A complete two- dimensional transthoracic echocardiogram was performed (2D, M-mode, spectral and color flow Doppler). Study Quality: Technically adequate. A contrast injection of Definity was performed to improve assessment of LV function. Left Ventricle: The left ventricle is mildly dilated. There is normal left ventricular wall thickness. LVEDD 5.9 cm. Ejection Fraction = 40-45%. Abnormal (paradoxical) septal motion consistent with LBBB. Mild to moderate global hypokinesis. Inferi or and lateral vega move best. There is no thrombus. LV diastolic function can not be accurately assessed. Left Atrium: The left atrium is mildly dilated. Right Atrium: Right atrial size is normal. Right Ventricle: The right ventricle is normal in size and function. Aortic Valve: The peak aortic valve velocity 307 cm/s. Aortic mean pressure gradient= 18 mmHg. VTI ratio 0.39. No paravalvular leak. S/p [id number]-weavx TAVR with 26 mm Evolut FX (within 25 mm Magna, post dilated with 23 mm True balloon) on 01/08/23. Well-seated, normally functioning aortic prosthesis. Mitral Valve: The mitral valve is normal in structure and function. There is mild mitral regurgitation. Tricuspid Valve: Structurally normal tricuspid valve. There was insufficient TR detected to calculate RV systolic pressure. Pulmonic Valve: The Pulmonic Valve is partially seen. Mild pulmonic valvular regurgitation. Arteries:The aortic root is normal size. Venous: Systolic blunting was observed in the RUPV spectral Dopplerflow pattern. The inferior vena cava is normal in size, with a normal collapsibility index. Pericardium/Pleura: There is no pericardial effusion. MMode 2D Measurements & Calculations IVSd - 1.1 cm LVIDd - 5.9 cm LVIDs - 4.1 cm LVPWd - 1.5 cm IVS/LVPW - 0.7 FS - 31.4 % EDV(Teich) - 176.1 ml ESV(Teich) - 73.3 ml EF(Teich) - 58.4 % EF (est.) - 44.4 % EDV(cubed) - 209.9 ml ESV(cubed) - 67.8 ml EF(cubed) - 67.7 % LV mass(C)d - 341.4 grams LV mass(C)dI - 144.4 grams/m^2 SV(Teich) - 102.8 ml SI(Teich) - 43.5 ml/m^2 SV(cubed) - 142.1 ml SI(cubed) - 60.1 ml/m^2 Ao root diam - 2.7 cm Ao root area -5.6 cm^2 LA dimension - 4.7 cm LA/Ao - 1.8 LVOT diam - 2.4 cm LVOT area - 4.4 cm^2 LVOT area(traced) - 4.5 cm^2 LVLd ap4 - 10 cm EDV(MOD-sp4) - 187 ml LVLs ap4 - 9.6 cm ESV(MOD-sp4) - 106 ml EF(MOD-sp4) - 43.3 % LVLd ap2 - 9.7 cm EDV(MOD-sp2) - 154 ml LVLs ap2 - 8.6 cm ESV(MOD-sp2) - 76 ml EF(MOD-sp2) - 50.6 % SV(MOD-sp4) - 81 ml SI(MOD-sp4) - 34.3 ml/m^2 SV(MOD-sp2) - 78 ml SI(MOD-sp2) - 33 ml/m^2 Doppler Measurements & Calculations MV E max bee - 121 cm/sec MV A max bee - 113 cm/sec MV E/A - 1.1 MV dec time - 0.26 sec Ao V2 max - 293.1 cm/sec Ao max PG - 34.4 mmHg Ao max PG (full) - 28.5 mmHg Ao V2 mean - 187.7 cm/sec Ao mean PG - 16.9 mmHg Ao mean PG (full) - 13.8 mmHg Ao V2 VTI - 59.8 cm CHELITA(I,A) - 1.8 cm^2 CHELITA(I,D) - 1.8 cm^2 CHELITA(V,A) - 1.8 cm^2 CHELITA(V,D) - 1.8 cm^2 LVOT max gradient - 5.9 mmHg LV V1 mean PG - 3 mmHg LVOT max bee - 121.3 cm/sec LV V1 mean - 79.8 cm/sec LV V1 VTI- 25 cm SV(Ao) - 333 ml SI(Ao) - 140.8 ml/m^2 SV(LVOT) - 109.9 ml SI(LVOT) - 46.5 ml/m^2 PA V2 max - 173.7 cm/sec PA max PG - 12.1 mmHg Conclusion The left ventricle is mildly dilated. Ejection Fraction = 40-45%. Abnormal (paradoxical) septal motion consistent with LBBB. The right ventricle is normal in size and function. The left atrium is mildly dilated. S/p [id number]-oh-astta TAVR with 26 mm Evolut FX (within 25 mm Magna, post dilated with 23 mm True balloon) on 01/08/23. Well-seated, normally functioning aortic prosthesis. No paravalvular leak. The peak aortic valve velocity 3.1 m/s. Aortic mean pressure gradient= 18 mmHg. VTI ratio 0.39. There is mild mitral regurgitation. InterpretingPhysician:Interpreting Physician: Timothy Monroe, electronically signed on 2023-01-10 16:37:24.54 ECHO Result Date: 12/28/2022 Reason for Exam: Chest Pain Date of Service: 12/28/2022 Interpretation Summary There is no comparison study available. Patient Height 175.0 cm Patient Weight 127.0 kg Systolic Pressure 132 mmHg Diastolic Pressure 53 mmHg Study Location ECH BSA 2.4 m^2 Procedure: A complete two-dimensional transthoracic echocardiogram was performed (2D, M-mode, spectral and color flow Doppler). Study Quality: Fair. The study was technically difficult with many images being suboptimal in quality. A contrast injection of Definity was performed to improve assessment of LV function. Left Ventricle: The left ventricular mass index is increased. There is mild concentric left ventricular hypertrophy. LVEDV 299 ml with BSA 2.4 m2 The ejection fraction measured by 2D BP MOD is41%. The LV ejection fraction is severely decreased. Akinesis of the apex and periapical segments, anteroseptum with better motion of the LV base representing, until proven otherwise, LAD territory issues on a background of moderate aortic stenosis. There is no thrombus. LV diastolic function can not be accurately assessed. E/E' averaged>13 Left Atrium: The left atrial volume is mildly increased. Right Atrium: Right atrial size is normal. Right Ventricle: The right ventricular systolic function is normal. Aortic Valve: Focal calcification. The aortic valve is not well visualized. The peak aortic valve velocity 385 cm/s. Aortic mean pressure gradient= 32 mmHg. The aortic valve velocity ratio was calculated at 0.27. Mitral Valve: Both leaflets are pliable and mobile. There is trace mitral regurgitation. Tricuspid Valve: The tricuspid valve is not well visualized. There was insufficient TR detected to calculate RV systolic pr essure. Pulmonic Valve: The pulmonic valve is not well visualized. Trace pulmonic valvular regurgitation. Arteries: The aortic root is normal size. There is aortic root sclerosis/calcification. Aortic arch not seen well. Venous: Severely dilated inferior vena cava. Pericardium/Pleura: There is no pericardial effusion. MMode 2D Measurements & Calculations IVSd - 1.2 cm LVIDd - 5.9 cm LVIDs - 4.7 cm LVPWd - 1.1 cm IVS/LVPW - 1.1 FS - 20.9 % EDV(Teich) - 172.5 ml ESV(Teich) - 100.2 ml EF(Teich) - 41.9 % EF (est.) - 41.1 % EDV(cubed) - 204.3 ml ESV(cubed) - 101 ml EF(cubed) - 50.6 % LV mass(C)d - 277.7 grams LV mass(C)dI - 116.6 grams/m^2 SV(Teich) - 72.4 ml SI(Teich) - 30.4 ml/m^2 SV(cubed) - 103.3 ml SI(cubed) - 43.4 ml/m^2 Ao root diam - 3.4 cm Ao root area - 9.3 cm^2 LA dimension - 4.7 cm LA/Ao - 1.4 LVLd ap4 - 11.6 cm EDV(MOD-sp4) - 289 ml LVLs ap4 - 10.1 cm ESV(MOD-sp4) - 176 ml EF(MOD-sp4) - 39.1 % LVLd ap2 - 11.3 cm EDV(MOD- sp2) - 302 ml LVLs ap2 - 10.1 cm ESV(MOD-sp2) - 176 ml EF(MOD-sp2) - 41.7 % SV(MOD-sp4) - 113 ml SI(MOD-sp4) - 47.5 ml/m^2 SV(MOD-sp2) - 126 ml SI(MOD-sp2) - 52.9 ml/m^2 Doppler Measurements & Calculations MV E max bee - 93.3 cm/sec MV A max bee - 113.7 cm/sec MV E/A - 0.82 MV dec time - 0.17 sec Ao V2 max - 330.8 cm/sec Ao max PG - 46.5 mmHg Ao max PG (full) - 42.4 mmHg Ao V2 mean - 223.4 cm/sec Ao mean PG - 24.8 mmHg Ao mean PG (full) - 22.8 mmHg Ao V2 VTI - 64.6 cm LVOT max gradient - 4.2 mmHg LV V1 mean PG - 2 mmHg LVOT max bee - 101.7 cm/sec LV V1 mean - 68.2 cm/sec LV V1 VTI - 20.4 cm SV(Ao) - 600 ml SI(Ao) - 252 ml/m^2 PA V2 max - 121.7 cm/sec PA max PG - 5.9 mmHg Conclusion The study was technically difficult with many images beingsuboptimal in quality. The left ventricular mass index is increased. E/E' averaged >13 The ejection fraction measured by 2D BP MOD is41%. Akinesis of the apex and periapical segments, anteroseptumwith better motion of the LV base representing, until proven otherwise, LAD territory issues on a background of moderate aortic stenosis. InterpretingPhysician:Interpreting Physician: Papi Delcid, electronically signed on 2022-12-28 16:16:52.52 EKG: None new. Electronically signed by: Williams Murray [facility] Linen Supervisor Associated attestation - Abdoulaye Canales MD - 02/04/2023 8:13 PM EDT Cardiology Attending Note Patient Name: Raghu Rosenthal Gender: Male Age: 77yrs :1945 MR #: [id number] [facility] #:[id number] Attending Provider: No att. providers found I saw and evaluated Raghu Rosenthal, a 77yrs-year old Male with cardiology inpatient resident/consult/CICU team on 01/17/2023 and agree with the facts as documented in the note. No acute events overnight. Diuresing well with p.o. torsemide. Appreciate ID recommendations about discontinuation of cefepime. Anticipating discharging to [facility] tomorrow or Sunday. Electronically signed by: Abdoulaye Canales MD, [facility] Parking Line Painter of Cardiology [facility] [employer] [facility] * Ruma Andrade CCM - 01/17/2023 2:15 PM EDT FL2 sent to [facility] for PASRR * Nidhi Humphrey PT - 01/17/2023 1:00 PM EDT PT continuing to follow. Per chart review, had PPM placed 01/12, will require PT reevaluation. Will follow up later date/time, as time allows and patient appropriate. Nidhi Humphrey PT, DPT Cortext preferred method of communication. * Zac Estrada OTR/Jessica - 01/17/2023 11:02 AM EDT Images from the original note were not included. ACUTE OCCUPATIONAL THERAPY RE-EVALUATION Patient Name: Raghu Rosenthal Date of Treatment: 01/17/2023 Date of : 1945 Age: 77yrs Date of admission: 12/28/2022 Attending Provider: Abdoulaye Canales MD Start Time: 1020 End Time: 1102 Occupational Therapy re-evaluation warranted today due to: medical status change: PPM 01/12 Subjective: Pt states, I got my pacemaker a few days ago. Received semi-fowlers, health care facility administrator at bedside. Pt agreeable to participate in OT session this date. Patient/Family goal: To regain strength/mobility. Objective: OT General - 01/17/23 1102 PRECAUTIONS Precautions Bleeding;Cardiac;Falls;Pacemaker Sitting Tolerance Surface Bed Level of assist Supervision No. of persons assisting 1 Arm Support Both Length of time mins. 8 No. of breaks 0 Techniques Energy Conservation Standing Tolerance Level of assist Min Assist No. of persons assisting 1 Arm Support Both Length of time mins. 5 No. of breaks 1 Techniques Energy Conservation Assistive Device Rolling Walker Rolling Right Level of Assist Min Assist Assistive Device Hospital Bed;Siderail No. of person(s) assisting 1 Rolling Left Level of Assist Min Assist Assistive Device Hospital Bed;Siderail No. of person(s) assisting 1 Supine to sit Level of Assist Min Assist Assistive Device Hospital Bed;Siderail No. of person(s) assisting 1 # of Trials 1 Sit on Edge of Bed Level of Assist Supervision Length of time mins. 8 Arm Support Both No. of person(s) assisting 1 Sit to Stand Surface height 22 Level of Assist Min Assist Assistive Device Rolling Walker No. of person(s) assisting 1 # of Trials 2 Stand to sit Surface Height 22 Level of Assist Min Assist Assistive Device Rolling Walker No. of person(s) assisting 1 # of Trials 2 Transfer Safety Concerns Safety Concerns Yes Arm Chair Transfer Type of transfer Stand step Assistive device Rolling Walker Level of assist Min Assist No. of person(s) assisting 1 Reason for assist Facilitation;Safety;Proper Technique # of trials 1 Hospital Bed Transfer Type of transfer Stand step Level of assist Min Assist No. of person(s) assisting 1 Reason for assist Balance;Adherance to precautions;Device management;Safety Assistive device Rolling Walker # of Trials 1 Functional Household Distance Functional Distance Less than 25 feet 20' Mode of Mobility Ambulation # Loss of Balance 0 Level of Assist -- CG (A) with intermittent Min (A) Assistive Device Rolling Walker # of Rest Breaks 1 seated rest break Washes Face Level of Assist Min Assist Performed from Bed Level Method Used Right hand Bathing Level of assist Mod Assist Bathing Skill Bed bath Upperbody dressing Level of Assist Min Assist Shirt Level of Assist Min Assist Shirt Skill Off;On Shirt Type Adapted shirt Method Used Compensatory technique Performed From Bed Lower Body Dressing Sock Level of Assist Max Assist Sock Skill On;Off Performed From Bed Sock Type Ankle/knee socks Toileting Level of Assist Max Assist Clothing Management CHANDRA Max Assist Hygiene CHANDRA Max Assist Performed From Bed Functional Cognition Functional Cognition Type Sequencing Task #1;Orientation Questions Sequence Task #1-Type Oral Sequence Task #1-# Problems Given 5 Sequence Task #1-# Solved Correctly 3 Sequence Task #1-Level of Cueing Mod Sequence Task #1-Reason for cueing Attention/memory;Cognitive deficits Orientation Questions-# Problems Given 4 Orientation Questions-# Solved Correctly 4 Orientation Questions-Level of Cueing Min Orientation Questions-Reason forCueing Attention/memory;Cognitive deficits Precautions followed during ADL's: Bleeding precautions Cardiac precautions Fall precautions Pacemaker Safety Promotion/Fall Prevention: activity supervised, gait belt, mobility aid in reach, nonskid shoes/slippers when out of bed Functional Communications: Verbal Endurance: Endurance during evaluation was Good for 42 minutes of activity. Pt on 1L NC and no SOB during session. Patient Vitals for the past 4 hrs: BP Temp Pulse Resp SpO2 01/17/23 1102 137/66 -- -- -- -- 01/17/23 1020 116/66 -- -- -- -- Motor Planning Observations: Apraxia and Impaired sequencing Upper Extremity Assessment: Fine Motor Skills/Coordination: Right Upper Extremity: Impairments noted: Finger to nose coordination-right UE and Tip to tip opposition-right UE Left Upper Extremity: Impairments noted: Finger to nose coordination-left UE and Tip to tip opposition-left UE Upper Extremity Impairments: Mild BUE myoclonic jerks Upper Extremity Sensation: WFL Range of Motion: WFL; LUE shoulder flexion deferred past 90 degrees due to pacemaker precautions Upper Extremity Strength: BUE grossly: 2+/5 Vision/Perception: Pt endorses new onset of macular degeneration bilaterally; denies blurry/double vision; wears glasses at baseline Cognition: Pt demonstrated intermittent confusion, difficulty with task sequencing and problem solving, and decreased ability to process information throughout session. Level of Alertness: During this session, patient was alert with occasional verbal cues to maintain alertness.. Following Directions: Patient follows 1 step commands consistently with minimal cueing. Memory: Answers orientation questions correctly 4 of 4 attempted by verbalizing with minimal cueing. Functional Problem Solving: Level of cueing: minimal Safety/Judgment observations: During ADLs assessment, patient exhibited the following characteristics: not adhering to medical/safety precautions after instruction, poor judgement, poor organizational skills, decreased attention to detail, impaired decision making, impaired attention, and impaired multi-tasking ability Social Behavior Observations: During evaluation, patient exhibited the following characteristics: pleasant/cooperative and distracted/inattentive Splinting/Positioning Needs: No splinting/positioning needs identified AM-[facility] Daily Activities Raw Score: 16 AM-[facility] Daily Activities t-Score: 35.96 Assessment: OT services are indicated. Raghu Neri with decreased satisfaction/ability to participate in the following occupations: Grooming, Dressing, Toileting, Toilet Transfer, Tub/Shower Transfer, Safety Awareness, EmergencyResponses, health Management, Home Management, Functional Mobility Raghu Neri with deficits in the following performance skills that interfere with participation in occupations: Cognition: Problem Solving, Memory, Attention, Initiation, Sequencing, Adaptability Neuromusculoskeletal Control and movement functions including: muscle strength, endurance, motor control, changing body position, dynamic balance, transferring self, lifting/carrying objects, manipulation, coordination, functional mobility Emotional Functions Thought functions Organization/Adaptability Mobility: Maintaining body position/Static Balance, Changing body position/Dynamic Balance, Transferring self, Lifting and carrying objects, Driving/Using Transportation Activity and Participation: Basic Learning, Applying knowledge, Undertaking a simple task, Undertaking a complex task, Undertaking multiple tasks, Carrying out daily routines OT Plan: Recommended Treatment: Activities of Daily Living Transfer Training Instrumental Activities of Daily Living Upper Extremity Strengthening Cognitive retraining Homemaking Energy conservation Balance activities Patient/Caregiver Education Home Safety OT Intensity/Frequency: 4 days per week OT Anticipated Duration: 2 weeks Goals/Education See Interdisciplinary Care Plan activity for detailed patient specific OT goals. See Patient Education Activity for education plan. Potential to Achieve Goals: Good Patient has reviewed, understood and agrees with treatment plan: Yes Occupational Therapy Recommended Consults: None identified at this time. Discharge Plan/Recommendations: Other OT DC Recommendations: Inpatient rehab Barriers to Discharge: Medical Acuity OT Services Recommended Post Discharge: Activities of daily living training, Instrumental activities of daily living training, Functional mobility training, Transfer training, Therapeutic exercise, Cognitive retraining DME Needed at Discharge: Defer to next level of care Physical Assist Required at DC for: Self care, Homemaking tasks, Bathroom transfers, Household mobility, Home safety/emergency responses Supervision Required at DC for: Adherence to precautions, Money/medication management Discharge Caregiver : Spouse Caregiver Availability : multimedia editor Physical assist caregiver able to provide: Significant JACK Peters/Jessica * Ruma Andrade CCM - 01/17/2023 9:19 AM EDT Lloyd Hawthorne: Pass, Sneha sent to Ruma Andrade CCM This service request was accepted on 01/16/2023 at 16:15 EDT. * Indigo Shi RN - 01/17/2023 5:09 AM EDT Shift Summary No acute events during the shift.Paced rhythm on monitor.Patient is still confused but alert and oriented . All due medications given per NOV. AM labs collected.Patient's needs assessed every hour and as needed by staff.Pt denies pain, SOB or chest pain at this time. Mag and potassium replaced .Safety precautions maintained throughout the shift,Pt remained free from fall and injury.Bed in low position, wheels locked,call vasquez within reach. VSS,NAD,ambu/code equipment at bedside.Will report POC to oncoming RN. * Indigo Shi RN - 01/17/2023 5:00 AM EDT Shift Summary Patient resting in bed comfortably . Paced rhythm on monitor. Patient is still confused . Tab Oxycodone given for pain as per MAR.All due medications given AM labs collected.Foly cath in damaso and draining clear yellow urine . Bruno car given Patient's needs assessed every hour and as needed by staff.Pt denies pain, SOB or chest pain at this time. Safety precautions maintained throughout the shift,Pt remained free from fall and injury.Bed in low position, wheels locked,call vasquez within reach. VSS,NAD,ambu/code equipment at bedside.Will report POC to oncoming RN. * Indigo Shi RN - 01/16/2023 7:30 PM EDT Report received from Danis Castelan RN. Walking rounds completed.Bruno Cath in situ . P>O> Torsemide started today Patient lying comfortably in bed. Reports no needs or concerns at this time.Call vasquez within reach, encouraged pt to call for any need. Bed in lowest position with wheels locked,Ambu/code equipment at bedside. Chart reviewed including PMR, allergies, order history, MAR, Labs and POC. Telemetry intact. Will continue to monitor. * Flip Moscoso RN - 01/16/2023 5:12 PM EDT No acute events this shift. VSS. Alert and orientedx3. Bruno in place. Patient up to chair this shift. Will continue to monitor. * Williams Murray DO - 01/16/2023 4:29 PM EDT Images from the original note were not included. [facility] - Cardiology Teaching Service Progress Note Service Pager (call #1, internal sales engineer) #[phone] Service Pager (call #2, senior) #[phone] PATIENT IDENTIFICATION: Patient Name: Raghu Rosenthal Age: 77yrs Sex: Male : 1945 MEG: [id number] Admit Date: 12/28/2022 1:45 PM Today's Date: 01/16/2023 Length of Stay: 19 days Admit Diagnosis: NSTEMI (non-ST elevated myocardial infarction) ([facility]) [I21.4] Primary Diagnosis: S/P TAVR (transcatheter aortic valve replacement) Room: CV514/CV514 PCP: Williams Yip MD Primary Insurance: @[email or web address]@ Secondary Insurance: @[email or web address] HOSPITAL COURSE Raghu Rosenthal is a 77yrs Male with PMH of CAD s/p CABG x2 in [place] 10 years ago, HTN, HLD, porcine AVR who initially presented to [place] ED with complaints of SOB and midchest pressure. Patient lives in [place] with his , and is visiting [facility] for the next 3 months. He recently had [facility]. Following this procedure he had worsening SOB associated with fatigue, malaise and generalized weakness. EMS was called and he was brought to [place] ED. On arrival he was noted to be in mild respiratory distress and required bipap. WBC of 19. EKG without NUNO, troponin 1.197. CXR consistent with mild interstitial edema, and a small left pleural effusion. He was given nitro sublingual and morphine, and started on BID lovenox. He was admitted to the ICU at [place]. He was started on empiric vanc, cefepime for possible infection. He was hypotensive requiring levophed with a differential of cardiogenic vs septic shock. He had a repeat EKG done on 12/28 with a new LBBB. His troponin trended as high as 39. Given concerns for acute coronary syndrome, he was transferred to [facility] for further management. On arrival to CICU, patient is awake and alert. He is on low dose levophed. He is warm to the touchand appears well perfused. POCUS with EF visually estimated at 45%. Breathing comfortably on room air. He underwent a R/LHC 12/28/2022 showing severe three-vessel disease with patent AVERY to LAD, intermediate stenosis in mid RCA, 60% distal left main stenosis, culprit for his VA appears to be an occluded SVG to ramus graft. He was also noted to have severely degenerated bioprosthetic aortic valve, invasive gradients reviewed severely stenotic with mean gradient over 40 mmHg. He was transferred out to the [facility] cards service while workup for TAVR was done. He was transferred back to CICU on 01/04for optimization prior to TAVR. He underwent TAVR on 01/08. Transferred back to CICU on 01/10 for ongoing heart failure management. 01/10 Patient transferred back to CICU from CVICU post TAVR for ongoing decompensated heart failure.On arrival to CICU pt is awake and alert, hemodynamically stable. His only complaint is a sore throat. Denies chest pain or shortness of breath. On a bumex drip. 01/11 Transfer to CIU. 01/12 MARINE TECHNICIAN-P defibrillator placed. Started on rocephin for UTI. 01/13 Bruno catheter exchanged due to CAUTI. CVL dced. UCx grew pseudamonas. Recephin Dced and cefepime started. 01/14 Pain and hematoma over site of pacemaker insertion, Hgb stable. 2 runs of VT self limiting. Lopressor started. 01/16: will received last does of IV cefipime today for pseudomonas UTI, per ID no need for cipro. Switched from bumex gtt 1mg/hr to Torsemide 60 mg PO BID. ASSESSMENT & PLAN: Raghu Rosenthal is a 77yrs old Male with PMH of CAD s/p CABG x2 in [place] 10 years ago, HTN, HLD, porcine AVR who initially presented to [place] ED with complaints of SOB and midchest pressure. Transferred to [facility] in cardiogenic shock and admitted to CICU. After a brief floor stay pt was transferredback to the CICU. Valve in valve TAVR done 01/08/23. Now downgraded to CIU. 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 Given risk for CHB EP to consider pacemaker. - MARINE TECHNICIAN-P device placed 01/12 HFrEF Hematoma TTE 01/09 40-45%. Patient initially presenting with cardiogenic shock and reduced EF on 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 years ago MARINE TECHNICIAN-P device placed 01/12 - Aldactone 25mg qd - Lopressor 12.5mg bid - Advance GDMT as tolerated - Switched from bumex gtt 1mg/hr to Torsemide 60 mg PO BID. - PT/OT - will touch base with [facility] tomorrow for transfer given patient medically stable - Hematoma over MARINE TECHNICIAN-P, EP consulted, will place weighted bag over, no discharge or overt signs of infection - AdvHF following Cardiogenic Shock - resolved NSTEMI Nonsustained VT New LBBB, chest pain. [facility] with Severe three-vessel disease with patent AVERY to LAD, intermediate stenosis in mid RCA, 60% distal left main stenosis. Culprit for his VA appears to be an occluded SVG to ramus graft. There is flow in the ramus with proximal 70% stenosis. 2x nonsustained VT 01/14 - ASA 81mg qd - Plavix 75mg qd - Pt not tolerant of statins Acute Hypoxic Respiratory Failure - Wean O2 as tolerated FILIBERTO on CKD II UTI Urinary Retention Baseline creatinine 1.6. Urine cx grew Pseudomonas. Bruno exchanged 01/13 - Monitor - Renally dose meds - Avoid nephrotoxins - Cefepime 1g IV q12h will received last does of IV cefipime today for pseudomonas UTI, per ID no need for cipro. HTN - Advance antihypertensives as tolerated HLD Pt does not tolerate statins. - Fenofibrate 145mg qam FEN: Fluids: none Electrolytes: Will replace to keep K >4, Phos >3, Mg >2 Nutrition: cardiac diet DVT Prophylaxis: heparin Dispo: CIU Code Status: Full Code The assessment and plan above was discussed with the attending physician, Abdoulaye Canales MD Interval Events (Previous 24-hrs): NAEON SUBJECTIVE: Patient says he is feeling better today. He does not seem confused. He denies chest pain, SOB. Review of Systems: Review of Systems Constitutional: Negative for chills and fever. HENT: Negative for sore throat. Eyes: Negative for redness. Respiratory: Positive for shortness of breath. Cardiovascular: Positive for leg swelling. Negative for chest pain. Gastrointestinal: Negative for abdominal pain, diarrhea, nausea and vomiting. Genitourinary: Negative for dysuria. Musculoskeletal: Negative for myalgias. Skin: Negative for rash. Neurological: Negative for speech difficulty. Psychiatric/Behavioral: Negative for agitation. OBJECTIVE: Vitals: Blood pressure 107/53, pulse 75, temperature 36.8 ??C (98.2 ??F), resp. rate 18, height 1.753 m, weight 114.8 kg, SpO2 100 %. Max Blood Pressure: Systolic (24hrs), Av , Min:92 , Max:121 Diastolic (24hrs), Av, Min:48, Max:79 Physical Exam: General: NAD lying comfortably in bed, not in distress Eyes: conjunctivae sclerae clear HENT: NC/AT Neck: supple, +JVD, no bruit Lungs: CTAB no w/r/r. Good air movement. Heart: RRR, normal S1, S2, systolic murmur, no gallops, or rubs. Abdomen: soft, nontender, nondistended, + bowel sounds, no organomegally, or masses Neuro: Alert, oriented X3, no focal neurological signs, moving all 4 extremities, Extremities: 1+ pitting edema in RLE, no edema of LLE. Skin: Soft ball sized mass on left chest wall over pacemaker site. TTP. - improving Psych: normal affect Patient Data: I/O's: Intake/Output Summary (Last 24 hours) at 01/16/2023 1650 Last data filed at 01/16/2023 1600 Gross per 24 hour Intake 1220 ml Output 2950 ml Net -1730 ml Weight change: -2.586 kg Height/Weight: Admission:Weight: 121.7 kg Today's: Weight: 114.8 kg BMI: Body mass index is 37.36 kg/m??. Current Medications: aspirin, 81 mg, DAILY bisacodyL, 5 mg, DAILY clopidogreL, 75 mg, DAILY escitalopram, 20 mg, DAILY fenofibrate, 145 mg, WITH BREAKFAST ferrous sulfate, 325 mg, Q48HR folic acid, 1 mg, DAILY gabapentin, 100 mg, QHS [Held by Provider] hepARIN subcutaneous injection, 7,500 Units, Q8HR insulin lispro, , QID-WITH MEALS and BEDTIME melatonin, 5 mg, QHS [START ON 01/17/2023] metoprolol succinate XL, 25 mg, DAILY metoprolol tartrate, 12.5 mg, BID pantoprazole, 40 mg, 0600 polyethylene glycol, 17 g, DAILY [Held by Provider] sevelamer carbonate, 0.8 g, TID-WITH MEALS sodium chloride, 3 mL, Q8HR spironolactone, 25 mg, DAILY thiamine mononitrate, 100 mg, DAILY tiotropium, 1 Capsule, RTDAILY torsemide, 60 mg, BID [Held by Provider] traZODone, 100 mg, QPM albuterol HFA, 2 Puff, [id number] dextrose, 15 g, PRN dextrose 50% in water, 25 mL, PRN dextrose 50% in water, 50 mL, PRN ondansetron, 4 mg, [id number] oxyCODONE, 5 mg, [id number] phenoL, 1 [place], PRN Lab Results: Recent Labs 01/14/23 0518 01/14/23 1645 01/15/23 0417 01/16/23 0355 WBC 7.59 8.22 8.86 HEMOGLOBIN 8.8* 8.8* 8.6* 8.8* HEMATOCRIT 29.1* 28.7* 28.1* 28.0* NEUTROPHIL # 5.60 5.39 5.29 NEUTROPHIL % 74 66 59 MCV 96.7 96.6 97.2 PLATELET 127* 127* 123* Recent Labs 01/15/23 1603 01/15/23 1726 01/16/23 0355 01/16/23 0741 01/16/23 1139 01/16/23 1510 01/16/23 1542 SODIUM 130* 131* 130* POTASSIUM 3.7 3.8 3.7 CHLORIDE 91* 93* 92* GLUCOSE POCT < > < > 116* 125* GLUCOSE 130* 96 121* BUN 103* 94* 97* CREATININE 1.74* 1.67* 1.60* < > = values in this interval not displayed. Recent Labs 01/15/23 1603 01/16/23 0355 01/16/23 1510 MAGNESIUM 1.9 2.0 1.8 Recent Labs 01/14/23 0518 01/15/23 0417 01/16/23 0355 PHOSPHORUS 3.1 2.8 2.6 Diagnostics (Reviewed): XRAY CHEST 1 VIEW Result Date: 01/14/2023 IMPRESSION: Improving right upper lobe and left basilar pulmonary opacities. This report was dictated by Lan Hammond M.D. Reading Doctor: Jacek Severino Electronic Signature by: Jacek Severino XRAY CHEST 1 VIEW Result Date: 01/12/2023 IMPRESSION: Interval left-sided 3-lead pacer, no pneumothorax. Similar right suprahilar and left basilar pulmonary opacities with small bilateral pleural effusions. Reading Doctor: Miller Mills Electronic Signature by: Miller Mills ECHO Result Date: 01/15/2023 Reason for Exam: Aortic Valve Disorder Date of Service: 01/08/2023 Patient Height 175.0 cm Patient Weight 120.0 kg Systolic Pressure 103 mmHg Diastolic Pressure 69 mmHg Study Location ECH BSA 2.3 m^2Procedure: A two-dimensional transthoracic echocardiogram with color flow and Doppler was performedin limited views only. Study Quality: Technically adequate. MMode 2D Measurements & Calculations LVOT diam - 2.4 cm LVOT area - 4.6 cm^2 LVOT area(traced) - 4.9 cm^2 Doppler Measurements & Calculations Ao V2 max - 169.3 cm/sec Ao max PG - 11.5 mmHg Ao max PG (full) - 9.6 mmHg Ao V2 mean - 105.9 cm/sec Ao mean PG - 5.3 mmHg Ao mean PG (full) - 4.4 mmHg Ao V2 VTI - 34.2 cm CHELITA(I,A) - 1.8 cm^2 CHELITA(I,D) - 1.8 cm^2 CHELITA(V,A) - 1.9 cm^2 CHELITA(V,D) - 1.9 cm^2 LVOT max gradient - 1.9 mmHg LV V1 mean PG - 0.93 mmHg LVOT max bee - 69.2 cm/sec LV V1 mean - 42.5 cm/sec LV V1 VTI - 13.3 cm SV(LVOT) -61.8 ml SI(LVOT) - 26.6 ml/m^2 Conclusion Limited echocardiogram in the OR during TAVR. Pre-TAVR Moderatelty reduced LV function, EF 35-40%. Severe prosthetic aortic stenosis. Mild mitral regurgitatio n. Post TAVR Moderately reduced LV function, EF 35-40%. S/p TAVR with 26 mm Evolut FX (within 25 mmMagna) post dilated with 23 mm True balloon. Peak AV bee 1.7 m/s. MG 5 mmHg. CHELITA 2 cm2. No paravalvular leak. InterpretingPhysician:Interpreting Physician: Timothy Monroe, electronically signed on 2023-01-15 10:23:56.353 ECHO Result Date: 01/10/2023 Reason for Exam: Aortic Valve Replacement Date of Service: 01/09/2023 Patient Height 175.0 cm Patient Weight 125.0 kg Systolic Pressure 148 mmHg Diastolic Pressure 51 mmHg Study Location E[facility] BSA 2.4 m^2 Procedure: A complete two- dimensional transthoracic echocardiogram was performed (2D, M-mode, spectral and color flow Doppler). Study Quality: Technically adequate. A contrast injection of Definity was performed to improve assessment of LV function. Left Ventricle: The left ventricle is mildly dilated. There is normal left ventricular wall thickness. LVEDD 5.9 cm. Ejection Fraction = 40-45%. Abnormal (paradoxical) septal motion consistent with LBBB. Mild to moderate global hypokinesis. Inferi or and lateral vega move best. There is no thrombus. LV diastolic function can not be accurately assessed. Left Atrium: The left atrium is mildly dilated. Right Atrium: Right atrial size is normal. Right Ventricle: The right ventricle is normal in size and function. Aortic Valve: The peak aortic valve velocity 307 cm/s. Aortic mean pressure gradient= 18 mmHg. VTI ratio 0.39. No paravalvular leak. S/p [id number] TAVR with 26 mm Evolut FX (within 25 mm Magna, post dilated with 23 mm True balloon) on 01/08/23. Well-seated, normally functioning aortic prosthesis. Mitral Valve: The mitral valve is normal in structure and function. There is mild mitral regurgitation. Tricuspid Valve: Structurally normal tricuspid valve. There was insufficient TR detected to calculate RV systolic pressure. Pulmonic Valve: The Pulmonic Valve is partially seen. Mild pulmonic valvular regurgitation. Arteries:The aortic root is normal size. Venous: Systolic blunting was observed in the RUPV spectral Dopplerflow pattern. The inferior vena cava is normal in size, with a normal collapsibility index. Pericardium/Pleura: There is no pericardial effusion. MMode 2D Measurements & Calculations IVSd - 1.1 cm LVIDd - 5.9 cm LVIDs - 4.1 cm LVPWd - 1.5 cm IVS/LVPW - 0.7 FS - 31.4 % EDV(Teich) - 176.1 ml ESV(Teich) - 73.3 ml EF(Teich) - 58.4 % EF (est.) - 44.4 % EDV(cubed) - 209.9 ml ESV(cubed) - 67.8 ml EF(cubed) - 67.7 % LV mass(C)d - 341.4 grams LV mass(C)dI - 144.4 grams/m^2 SV(Teich) - 102.8 ml SI(Teich) - 43.5 ml/m^2 SV(cubed) - 142.1 ml SI(cubed) - 60.1 ml/m^2 Ao root diam - 2.7 cm Ao root area -5.6 cm^2 LA dimension - 4.7 cm LA/Ao - 1.8 LVOT diam - 2.4 cm LVOT area - 4.4 cm^2 LVOT area(traced) - 4.5 cm^2 LVLd ap4 - 10 cm EDV(MOD-sp4) - 187 ml LVLs ap4 - 9.6 cm ESV(MOD-sp4) - 106 ml EF(MOD-sp4) - 43.3 % LVLd ap2 - 9.7 cm EDV(MOD-sp2) - 154 ml LVLs ap2 - 8.6 cm ESV(MOD-sp2) - 76 ml EF(MOD-sp2) - 50.6 % SV(MOD-sp4) - 81 ml SI(MOD-sp4) - 34.3 ml/m^2 SV(MOD-sp2) - 78 ml SI(MOD-sp2) - 33 ml/m^2 Doppler Measurements & Calculations MV E max bee - 121 cm/sec MV A max bee - 113 cm/sec MV E/A - 1.1 MV dec time - 0.26 sec Ao V2 max - 293.1 cm/sec Ao max PG - 34.4 mmHg Ao max PG (full) - 28.5 mmHg Ao V2 mean - 187.7 cm/sec Ao mean PG - 16.9 mmHg Ao mean PG (full) - 13.8 mmHg Ao V2 VTI - 59.8 cm CHELITA(I,A) - 1.8 cm^2 CHELITA(I,D) - 1.8 cm^2 CHELITA(V,A) - 1.8 cm^2 CHELITA(V,D) - 1.8 cm^2 LVOT max gradient - 5.9 mmHg LV V1 mean PG - 3 mmHg LVOT max bee - 121.3 cm/sec LV V1 mean - 79.8 cm/sec LV V1 VTI- 25 cm SV(Ao) - 333 ml SI(Ao) - 140.8 ml/m^2 SV(LVOT) - 109.9 ml SI(LVOT) - 46.5 ml/m^2 PA V2 max - 173.7 cm/sec PA max PG - 12.1 mmHg Conclusion The left ventricle is mildly dilated. Ejection Fraction = 40-45%. Abnormal (paradoxical) septal motion consistent with LBBB. The right ventricle is normal in size and function. The left atrium is mildly dilated. S/p [id number] TAVR with 26 mm Evolut FX (within 25 mm Magna, post dilated with 23 mm True balloon) on 01/08/23. Well-seated, normally functioning aortic prosthesis. No paravalvular leak. The peak aortic valve velocity 3.1 m/s. Aortic mean pressure gradient= 18 mmHg. VTI ratio 0.39. There is mild mitral regurgitation. InterpretingPhysician:Interpreting Physician: Timothy Monroe, electronically signed on 2023-01-10 16:37:24.54 ECHO Result Date: 12/28/2022 Reason for Exam: Chest Pain Date of Service: 12/28/2022 Interpretation Summary There is no comparison study available. Patient Height 175.0 cm Patient Weight 127.0 kg Systolic Pressure 132 mmHg Diastolic Pressure 53 mmHg Study Location E[facility] BSA 2.4 m^2 Procedure: A complete two-dimensional transthoracic echocardiogram was performed (2D, M-mode, spectral and color flow Doppler). Study Quality: Fair. The study was technically difficult with many images being suboptimal in quality. A contrast injection of Definity was performed to improve assessment of LV function. Left Ventricle: The left ventricular mass index is increased. There is mild concentric left ventricular hypertrophy. LVEDV 299 ml with BSA 2.4 m2 The ejection fraction measured by 2D BP MOD is41%. The LV ejection fraction is severely decreased. Akinesis of the apex and periapical segments, anteroseptum with better motion of the LV base representing, until proven otherwise, LAD territory issues on a background of moderate aortic stenosis. There is no thrombus. LV diastolic function can not be accurately assessed. E/E' averaged>13 Left Atrium: The left atrial volume is mildly increased. Right Atrium: Right atrial size is normal. Right Ventricle: The right ventricular systolic function is normal. Aortic Valve: Focal calcification. The aortic valve is not well visualized. The peak aortic valve velocity 385 cm/s. Aortic mean pressure gradient= 32 mmHg. The aortic valve velocity ratio was calculated at 0.27. Mitral Valve: Both leaflets are pliable and mobile. There is trace mitral regurgitation. Tricuspid Valve: The tricuspid valve is not well visualized. There was insufficient TR detected to calculate RV systolic pr essure. Pulmonic Valve: The pulmonic valve is not well visualized. Trace pulmonic valvular regurgitation. Arteries: The aortic root is normal size. There is aortic root sclerosis/calcification. Aortic arch not seen well. Venous: Severely dilated inferior vena cava. Pericardium/Pleura: There is no pericardial effusion. MMode 2D Measurements & Calculations IVSd - 1.2 cm LVIDd - 5.9 cm LVIDs - 4.7 cm LVPWd - 1.1 cm IVS/LVPW - 1.1 FS - 20.9 % EDV(Teich) - 172.5 ml ESV(Teich) - 100.2 ml EF(Teich) - 41.9 % EF (est.) - 41.1 % EDV(cubed) - 204.3 ml ESV(cubed) - 101 ml EF(cubed) - 50.6 % LV mass(C)d - 277.7 grams LV mass(C)dI - 116.6 grams/m^2 SV(Teich) - 72.4 ml SI(Teich) - 30.4 ml/m^2 SV(cubed) - 103.3 ml SI(cubed) - 43.4 ml/m^2 Ao root diam - 3.4 cm Ao root area - 9.3 cm^2 LA dimension - 4.7 cm LA/Ao - 1.4 LVLd ap4 - 11.6 cm EDV(MOD-sp4) - 289 ml LVLs ap4 - 10.1 cm ESV(MOD-sp4) - 176 ml EF(MOD-sp4) - 39.1 % LVLd ap2 - 11.3 cm EDV(MOD- sp2) - 302 ml LVLs ap2 - 10.1 cm ESV(MOD-sp2) - 176 ml EF(MOD-sp2) - 41.7 % SV(MOD-sp4) - 113 ml SI(MOD-sp4) - 47.5 ml/m^2 SV(MOD-sp2) - 126 ml SI(MOD-sp2) - 52.9 ml/m^2 Doppler Measurements & Calculations MV E max bee - 93.3 cm/sec MV A max bee - 113.7 cm/sec MV E/A - 0.82 MV dec time - 0.17 sec Ao V2 max - 330.8 cm/sec Ao max PG - 46.5 mmHg Ao max PG (full) - 42.4 mmHg Ao V2 mean - 223.4 cm/sec Ao mean PG - 24.8 mmHg Ao mean PG (full) - 22.8 mmHg Ao V2 VTI - 64.6 cm LVOT max gradient - 4.2 mmHg LV V1 mean PG - 2 mmHg LVOT max bee - 101.7 cm/sec LV V1 mean - 68.2 cm/sec LV V1 VTI - 20.4 cm SV(Ao) - 600 ml SI(Ao) - 252 ml/m^2 PA V2 max - 121.7 cm/sec PA max PG - 5.9 mmHg Conclusion The study was technically difficult with many images beingsuboptimal in quality. The left ventricular mass index is increased. E/E' averaged >13 The ejection fraction measured by 2D BP MOD is41%. Akinesis of the apex and periapical segments, anteroseptumwith better motion of the LV base representing, until proven otherwise, LAD territory issues on a background of moderate aortic stenosis. InterpretingPhysician:Interpreting Physician: Papi Delcid, electronically signed on 2022-12-28 16:16:52.52 EKG: None new. Electronically signed by: Williams Murray Formerly [facility] Linen Supervisor Associated attestation - Abdoulaye Canales MD - 02/04/2023 8:12 PM EDT Cardiology Attending Note Patient Name: Raghu Rosenthal Gender: Male Age: 77yrs :1945 MR #: [id number] [facility] #:[id number] Attending Provider: No att. providers found I saw and evaluated Raghu Rosenthal, a 77yrs-year old Male with cardiology inpatient resident/consult/CICU team on 01/16/2023 and agree with the facts as documented in the note. He is alert and oriented x4. Labs look good.? Can IV antibiotic switched to p.o. in view of disposition to IPR soon. Or can IV antibiotics be done in IPR. He is also being switched from IV Bumex gtt.to torsemide 60 mg twice daily. Electronically signed by: Abdoulaye Canales MD, FAC, DARWIN Parking Line Painter of Cardiology [facility] * Kendra Whitehead, RDN - 01/16/2023 3:25 PM EDT Patient: Raghu Rosenthal Today's Date / Time: 01/16/2023 / 3:25 PM Room/Bed: [facility] LOS: 19 days Nutrition Monitoring Contact: Clinical RDN Available via [employer] Nutrition Interventions & Recommendations for Provider Recommend liberalizing diet to No Added Salt to increase menu options and promote po intake. Recommend adding thera-m supplement to maximize micronutrient intake. Consider adding appetite stimulant to help improve po intake. Recommended Malnutrition Diagnosis At risk for Malnutrition (01/07/23) Nutrition Assessment Problem/PMH: 77 yo male who presented with complaints of SOB and midchest pressure. PMH includes CAD, HTN, HLD, AVR. Current Status: Visited pt on f/u. Pt asleep. Breakfast, lunch and snack trays noted in room of which pt consumed very little. Had drank ~25% of Ensure Max. Reason for Visit: Follow Up Contact with Patient: Visited Food Insecurity: Unable to Assess (01/07/23) Anthropometric Measurements Admit Weight: 121.7 kg Current Weight: 114.8 kg [place] Body Weight (kg) (Nutrition): 73 Nutrition Focused Physical Findings/Exam Skin: Incision x 2 Diet Order: heart healthy Feeding Route: po Intake/Output: Net -22 L since admit, 2x BM, -3 L UOP Nutrition Intake: 50% x 4 meals Nutrition Adequacy: Not Meeting Needs Barriers To Nutrition Intake: Poor Appetite Meds/Supplements: Dulcolax, ferrous sulfate, folic acid, insulin- not given, protonix, glycolax, aldactone, thiamine, torsemide Labs: Na 131, Cl 93, BUN 94, Creat 1.67, GFR 42 Comparative Standards Protein Needs: 146 g/day (2 g/kg IBW) Calorie Needs: 9183-7216 kcal/day (22-25 kcal/kg IBW) Fluid Needs: per MD Nutrition Diagnosis Oral or Nutrition Support Intake; Inadequate oral intake (NI-2.1) related to poor appetite as evidenced by documented po intake.- continues Nutrition Monitoring Nutrition intake/modality, GI function, skin integrity, wt/fluid trends, labs, meds, and plan of care Follow-up Date: 01/19/23 Clinical RDN Name: Kendra Whitehead MS, RDN, LDN * Dakota Munguia - 01/16/2023 3:04 PM EDT Need Fl2 Sent History and Physical CM aware Dakota Munguia [facility] Mgt & Mechanical Developer [employer] Phone #: [phone] Phone #[phone] For Case Mangement assistance Sunday through Sunday, Weekends or Holidays 8:30 am 5:00 pm, please page [phone] pager [phone]. For Case Management assistance after 5:00 pm , please call [phone]. * Ruma Andrade CCM - 01/16/2023 2:35 PM EDT CM met with pt and talked with via phone, she is packing up to leave [place] ( they were vacationing there) and getting a hotel in [place] to stay and be closer to her , IPR is there first choice and wants SNF as 2nd choice, would like for SNF referrals to be in [facility] (Does not know much about this area or SNF's) Referrals sent to SNF in [facility] will continue to follow * Shanell Lara, [facility] - 01/16/2023 10:15 AM EDT Antibiotic Stewardship Program: Please see recommendation below regarding the patient's current antibiotic regimen. A change in thepresent antimicrobial regimen will be made per protocol after 24 hours unless an addendum is added to this progress note stating the reason current therapy is to be continued. Should you have any questions please call or Cortex: Fred Fabian, Rosalva Xie, Shanell Lara, or Holli Garcia. Note: Antibiotic Stewardship pharmacists office hours are [id number] M-F. If there are any questionsafter hours, weekends or holidays, please contact U ID fellow at pager [phone]. Thank you. 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 Hospitalization significant for TAVR on 01/08 and MARINE TECHNICIAN-D placement on 01/12. On 01/12, patient also was noted to be acute confused and he was started on antibiotics for possible UTI. He was reported to be A&O x4 the following day. Bruno was exchanged on . On 01/15, patient c/o pain at device site and EP was consulted for hematoma. No intervention recommended. Current antimicrobial regimen: D#4 Cefepime 1 g IV q12h (01/13-present) S/P: Vancomycin (01/12-01/13) - darby-op ppx Ceftriaxone 2 g IV x1 12/28, 1 g IV x1 01/12 Azithromycin 500 mg IV x1 12/28 Antimicrobial allergies: Amoxicillin (mild diarrhea), Clarithromycin (reaction not specified), Clavulanic acid (diarrhea), tetracycline (swelling) Pertinent vitals/labs: Afebrile, other vitals wnl On 2 L NC WBC wnl Scr 1.74>1.67 (eCrCl ~47 mL/min w/ AdjBW of 88 kg) 01/12 UA: 1+ LE, negative nitrites, 4 WBC, 2 RBC, bacteria present, few squamous epithelial cells Micro: 01/10 sputum cx: 1+ GNR not PsA, Acinetobacter, or Steno x3, 2+ OPF 01/12 Ucx: 14K PsA (hunter susceptible) Imaging: none pertinent Assessment: Patient admitted for NSTEMI/shock, now s/p TAVR and MARINE TECHNICIAN-D currently being treated for possible UTI.More likely suspect asymptomatic bacteruria. Confusion alone is not indicative of a UTI and patient's UA did not have pyuria with only 4 WBC. Urine culture, which was collected prior to Bruno exchange, grew [id number] CFU Pseudomonas aeruginosa, likely colonization as patient's confusion was reported tohave resolved after 1 dose of ceftriaxone. He has been afebrile and hemodynamically stable. No leukocytosis. Today is day 4 of cefepime. Unless otherwise clinically indicated, please consider the following recommendations: Recommendations: As patient likely has asymptomatic bacteruria, recommend discontinuing cefepime and monitoring patient off antibiotics. If still desiring to treat for UTI but patient's confusion has resolved, discontinuation of cefepime would still be indicated. In the interim, will adjust cefepime to 1 g IV q24h per protocol for eCrCl ~47 mL/min and indication of cystitis. Thank you. Shanell Lara, PharmD, BCIDP Antimicrobial Stewardship Coordinator * Indigo Shi RN - 01/16/2023 5:54 AM EDT Shift Summary Patient is resting comfortably in bed . Paced rhythm on monitor.PPM site still having hematoma no active bleeding . Bumex drip is infusing per NOV. Patient is confused and around 0200 patient said Iwant to get out of here Reoriented to the surroundings and [employer] boring machine operator production paged and at his bedside . talked to patient AM labs collected.Patient's needs assessed every hour and as needed by staff.Pt denies pain, SOB or chest pain at this time. Safety precautions maintained throughout the shift,Ptremained free from fall and injury.Bed in low position, wheels locked,call vasquez within reach. VSS,NAD,ambu/code equipment at bedside.Will report POC to oncoming RN. * Indigo Shi RN - 01/15/2023 7:30 PM EDT Report received from Niraj DUMONT. Walking rounds completed. Patient is confused Reoriented to the surrounding . Patient Sitting comfortably in Chair. Bumex drip is infusing per MAR and Mag is replacing Reports no needs or concerns at this time.Call vasquez within reach, encouraged pt to call for any need. Bed in lowest position with wheels locked,Ambu/code equipment at bedside. Chart reviewed including PMR, allergies, order history, MAR, Labs and POC. Telemetry intact. Will continue to monitor. * Leyla Ventura COTA/L - 01/15/2023 2:24 PM EDT Images from the original note were not included. OCCUPATIONAL THERAPY DAILY NOTE-INPATIENT [facility] Patient Name: Raghu Rosenhtal Date of Treatment: 01/15/2023 Date of : 1945 Age: 77yrs Date of admission: 12/28/2022 Attending Provider: Abdoulaye Canales MD Start Time: 1328 End Time: 1424 Subjective: Pt found in recliner, agreeable to therapy. Pt's present in room. Objective/Activities Addressed Today: OT General - 01/15/23 1424 PRECAUTIONS Precautions Cardiac;Bleeding;Falls Sit to supine Level of Assist Supervision Assistive Device Siderail;Hospital Bed No. of person(s) assisting 1 # of Trials 1 Sit on Edge of Bed Level of Assist Supervision Length of time mins. 10 Arm Support Both No. of person(s) assisting 1 Scooting edge of bed Level of Assist Supervision Assistive Device Hospital Bed No. of person(s) assisting 1 Direction Backward Sit to Stand Surface height 22 Level of Assist Min Assist Assistive Device Rolling Walker No. of person(s) assisting 1 # of Trials 5 Stand to sit Surface Height 22 Level of Assist Min Assist Assistive Device Rolling Walker No. of person(s) assisting 1 # of Trials 5 Transfer Safety Concerns Safety Concerns Yes Arm Chair Transfer Type of transfer Stand step Assistive device Rolling Walker Level of assist Min Assist No. of person(s) assisting 1 Reason for assist Facilitation;Safety;Proper Technique # of trials 1 Hospital Bed Transfer Type of transfer Stand step Level of assist Min Assist No. of person(s) assisting 1 Reason for assist Balance;Adherance to precautions;Device management;Safety Assistive device Rolling Walker # of Trials 1 Functional Household Distance Functional Distance Less than 25 feet 5ft,5ft,5ft Mode of Mobility Ambulation # Loss of Balance 0 Level of Assist Min Assist Assistive Device Rolling Walker # of Rest Breaks 2 Shirt Level of Assist Min Assist Shirt Skill Off;On Shirt Type Adapted shirt Method Used Compensatory technique Performed From Chair/Recliner Toileting Level of Assist Max Assist Clothing Management CHANDRA Max Assist Hygiene CHANDRA Max Assist Performed From Standing TOILET TRANSFER Type of transfer Stand step Level of assist Min Assist No. of person(s) assisting 1 Reason for assist Balance;Device management;Facilitation;Safety Assistive device Rolling Walker DME 3 in 1 commode # of trials 1 Standing during ADL's Level of assist Contact Guard Assistance # losses of balance 0 Time in mins. 3 Assistive device Rolling Walker No. of person(s) assisting 1 Activity tolieting UE Exercise Protocol Protocol Resistance Band Exercises Right UE Arm Right Joint Elbow;Shoulder Planes of Movement Flexion;Extension Repetitions 10 Sets 2 Endurance: Endurance during evaluation was Fair for 56 minutes of activity. Pt completed session onroom air with no c/o SOB. Patient Vitals for the past 4 hrs: BP Temp Pulse Resp SpO2 01/15/23 1424 115/65 -- 80 -- 95 % 01/15/23 1328 109/61 -- -- -- -- Response to Treatment: Pt tolerated session fair, limited by fatigue. Pt completed all functional transfers with Min A provided for balance/sequencing. Therapist provided VC during transfers for RW safety. Pt completed x3 STS's from [facility] due to pt being unaware of BM upon arrival, therapist providedMax A to complete perineal care. Pt left in semi-fowlers position, all needs in reach, RN aware. Michaelte will continue to follow. Safety Promotion/Fall Prevention: activity supervised, assistive device/personal items within reach, clutter-free environment maintained, nonskid shoes/slippers when out of bed AM-PAC Daily Activities Raw Score: 17 AM-PAC Daily Activities t-Score: 37.26 Education: See Patient Education Activity for details. Discharge Plan/Recommendations: Other OT DC Recommendations: Inpatient rehab Barriers to Discharge: Medical Acuity OT Services Recommended Post Discharge: Activities of daily living training, Instrumental activities of daily living training, Functional mobility training, Transfer training, Therapeutic exercise, Cognitive retraining DME Needed at Discharge: Defer to next level of care Physical Assist Required at DC for: Self care, Homemaking tasks, Bathroom transfers, Household mobility, Home safety/emergency responses Supervision Required at DC for: Adherence to precautions, Money/medication management Discharge Caregiver : Spouse Caregiver Availability : multimedia editor Physical assist caregiver able to provide: Significant JENN Elaine * Karen Ventura PTA - 01/15/2023 2:23 PM EDT PHYSICAL THERAPY DAILY NOTE-[facility] Patient Name: Raghu Rosenthal Date of Treatment: 01/15/2023 Date of : 1945 Age: 77yrs Date of admission: 12/28/2022 Attending Provider: Abdoulaye Canales MD Start Time: Time In: 1329 End Time: Time Out: 1423 Subjective: RN consulted prior to treatment. Upon arrival pt positioned in chair and agreeable to therapy today. I am ready to get back in bed Pre-Tx Vital Signs/Pain Score: Vital Signs Pulse: 76 SpO2: 94 % BP: 109/61 BP Mean: 87 MM HG Patient Position for VS: Sitting Upright Pain Pain Intensity Numbers Scale: 0 - No Pain Post-Tx Vital Signs/Pain Score: Vital Signs Pulse: 80 SpO2: 95 % BP: 115/65 BP Mean: 75 MM HG Patient Position for VS: Semi-Fowlers Pain Pain Intensity Numbers Scale: 0 - No Pain Oxygen Therapy O2 Mode: Room Air Objective: Precautions Implemented Precautions Implemented: Falls, Cardiac Safety Siderail Status: All 4 Siderails are Up Bed Position: Low Position, Wheels Locked Call Vasquez: In Reach and Able to Use ID Band: Checked Bed Alarms: Not indicated - low/moderate risk Safety Promotion/Fall Prevention: activity supervised, assistive device/personal items within reach, fall prevention program maintained, gait belt, muscle strengthening facilitated, nonskid shoes/slippers when out of bed Compression Garment/Device Compression Garment / Device: Sequential Compression Device (SCD) - Off (off upon arrival) Functional Activities Addressed Today: Sit to Supine Level of Assist: Supervision Assistive Device: Siderail No. of person(s) assistin Reason for assist: Balance, Facilitation, Safety, Sequencing # of Trials: 1 Sit on Edge of Bed Level of Assist: Contact Guard Assistance Length of time mins.: 8 Arm Support: Both No. of person(s) assistin Sit to Stand Surface height: 22 Level of Assist: Min Assist Assistive Device: Gait Belt, Rolling Walker No. of person(s) assistin (progressed to 1 person by second trial) Reason for assist: Physical support or lifting, Safety, Sequencing # of Trials: 5 Stand to Sit Surface Height: 22 Level of Assist: Min Assist Assistive Device: Gait belt, Rolling Walker No. of person(s) assistin Reason for assist: Safety, Physical support or lifting, Sequencing # of Trials: 5 Standing Static Level of assist: Contact Guard Assistance Assistive device: Rolling Walker No. of person(s) assistin # losses of balance: 0 Time in secs.: 30 Time in mins.: 1 Balance recovery: Seeks UE support Surface: Floor Standing during ADL's Level of assist: Contact Guard Assistance Assistive device: Rolling Walker No. of person(s) assistin Time in mins.: 3 # losses of balance: 0 Activity: clean up after BM Arm Chair Transfer Type of transfer: Stand step Level of assist: Min Assist Assistive device: Gait belt, Rolling Walker No. of person(s) assistin Reason for assist: Safety, Physical support or lifting, Sequencing # of trials: 1 Hospital Bed Transfer Type of transfer: Stand step Level of assist: Min Assist Assistive device: Gait belt, Rolling Walker No. of person(s) assistin Reason for assist: Balance, Facilitation, Safety # of Trials: 1 Toilet Transfer Type of transfer: Stand step Level of assist: Min Assist Assistive device: Gait belt, Rolling Walker No. of person(s) assistin Reason for assist: Balance, Facilitation, Sequencing, Safety, Physical support or lifting DME: 3 in 1 commode # of trials: 2 Ambulation Ambulation Level of assist: Min Assist Assistive device: Gait belt, Rolling Walker No. of person(s) assistin Reasons for assist: Balance, Facilitation, LE strength, Endurance, Physical support # of trials: 3 Distance in feet: 5, 5, 5 Gait Deviations: slow pace, downward gaze, step to gait, decreased B step length, forward flexed posture Surfaces: level Exercises: General Exercise 1 Exercise Performed: Knee strengthening protocol (provided handout) Position: Sitting, Supine Weight/Resistance: AROM Repetitions/Time: 10 Sets: 1 AM-[facility] SHORT FORMS TOOL BASIC MOBILITY Raghu Rosenthal [...] Climb 3-5 steps with a railin- A Lot Basic Mobility Scores AM-PAC Mobility Raw Score: 17 AM-PAC Mobility t-Score: 39.67 AM-PAC Mobility G-Code Modifier: CK Legend for Raw & T-Scale Score: Raw score of 6 (t-scale score of 16.59) indicates the patient is totally dependent on staff/family for mobility Raw score of 18 (t-scale score of 41.05) indicates the patient requires a little bit of help (minimal assistance) to move Raw score of 24 (t-scale score of 57.68) indicates the patient is functionally independent Response to Treatment: Patient tolerated therapy session fair today. Pt unaware of BM during session requiring ample amount of time for toileting activities. Pt required verbal cues for sequencing with RW due to patient pushing walk too far in front of himself. Pt required min A for all OOB mobility for safety and physical support. Post treatment pt positioned in bed with all needs met. Acute PT will continue to follow. Education: See Patient Education Activity for details. Discharge Plan/Recommendations: Post-Acute Therapy Needs: Gait training, Neuromuscular Re-education, Therapeutic Activities, Therapeutic Excercises Intensity/setting: high intensity, facility based Physical Assistance Required at This Time: All mobility Supervision Required at This Time: All mobility Expected Caregiver at DC from Hospital: Spouse Caregiver Availability : multimedia editor Caregiver/Physical Assistance available: Significant assistance available Equipment Needed at DC: Will be assessed at next level of care Karen Ventura PTA * Ruma Andrade CCM - 01/15/2023 9:25 AM EDT Per IPR: PT/OT 01/11/23: Tolerating all OOB activities with max2-min assist; ambulated 35 ft; good endurancefor 42 minutes; therapies recommending IPR; will need updated notes -platelets improving, 127k 01/15/23 -continues on Bumex drip; will need to be stable off IV drips -we'll follow up Sunday * Shira Gonzalez AGNP - 01/15/2023 9:05 AM EDT Images from the original note were not included. Electrophysiology Follow-Up Note Department of Cardiovascular Sciences Date: 01/15/2023 Referring physician: Ko Feliciano DO Date of Admission: 12/28/2022 1:45 PM Length of Stay: 18 days -s/p MARINE TECHNICIAN-P on 01/12/23. -EP was asked to evaluate for concerns of pocket hematoma at incision site. -On assessment, site was clean, dry, and intact with silver melplix dressing in place. Edema noted surrounding incision site. No signs of redness, warmth, or drainage. Some tenderness reported aroundincision site. Denied fevers or chills. Low Hgb at 8.6, but stable post-op. -No CT or US indicated at this time. Please place a 500cc saline bag over the incision site for at least 4hrs and PRN for swelling. -Please reach out to EP if edema worsens or fails to improve. Will see patient at 2 week site check. Shira Gonzalez, [facility] [place] [facility] Physicians [employer] / After hours #[phone] * Mathew Dang RN - 01/15/2023 9:01 AM EDT Received pt into my care. Bedside rounding completed with night nurse Pt denies any discomfort at this time. Will continue to monitor Hematoma remains present PPM site * Miller Cooper MD - 01/15/2023 6:05 AM EDT [facility]ANS - Cardiology Teaching Service Progress Note Service Pager (call #1, internal sales engineer) #[phone] Service Pager (call #2, senior) #[phone] PATIENT IDENTIFICATION: Patient Name: Raghu Rosenthal Age: 77yrs Sex: Male : 1945 MEG: [id number] Admit Date: 12/28/2022 1:45 PM Today's Date: 01/15/2023 Length of Stay: 17 days Admit Diagnosis: NSTEMI (non-ST elevated myocardial infarction) ([facility]) [I21.4] Primary Diagnosis: S/P TAVR (transcatheter aortic valve replacement) Room: CV514/CV514 PCP: Williams Yip MD Primary Insurance: @[email or web address]@ Secondary Insurance: @[email or web address]@ HOSPITAL COURSE Raghu Rosenthal is a 77yrs Male with PMH of CAD s/p CABG x2 in [place] 10 years ago, HTN, HLD, porcine AVR who initially presented to [place] ED with complaints of SOB and midchest pressure. Patient lives in [place] with his , and is visiting [facility] for the next 3 months. He recently had a [facility] by [facility] on 12/[facility]. Following this procedure he had worsening SOB associated with fatigue, malaise and generalized weakness. EMS was called and he was brought to [place] ED. On arrival he was noted to be in mild respiratory distress and required bipap. WBC of 19. EKG without NUNO, troponin 1.197. CXR consistent with mild interstitial edema, and a small left pleural effusion. He was given nitro sublingual and morphine, and started on BID lovenox. He was admitted to the ICU at [place]. He was started on empiric vanc, cefepime for possible infection. He was hypotensive requiring levophed with a differential of cardiogenic vs septic shock. He had a repeat EKG done on 12/28 with a new LBBB. His troponin trended as high as 39. Given concerns for acute coronary syndrome, he was transferred to [facility] for further management. [facility], patient is awake and alert. He is on low dose levophed. He is warm to the touchand appears well perfused. POCUS with EF visually estimated at 45%. Breathing comfortably on room air. He underwent a R/LHC 12/28/2022 showing severe three-vessel disease with patent AVERY to LAD, intermediate stenosis in mid RCA, 60% distal left main stenosis, culprit for his VA appears to be an occluded SVG to ramus graft. He was also noted to have severely degenerated bioprosthetic aortic valve, invasive gradients reviewed severely stenotic with mean gradient over 40 mmHg. He was transferred out to the [facility] cards service while workup for TAVR was done. He was transferred back to CICU on 01/04for optimization prior to TAVR. He underwent TAVR on 01/08. Transferred back to CICU on 01/10 for ongoing heart failure management. 01/10 Patient transferred back to CICU from CVICU post TAVR for ongoing decompensated heart failure.On arrival to CICU pt is awake and alert, hemodynamically stable. His only complaint is a sore throat. Denies chest pain or shortness of breath. On a bumex drip. 01/11 Transfer to CIU. 01/12 MARINE TECHNICIAN-P defibrillator placed. Started on rocephin for UTI. 01/13 Bruno catheter exchanged due to CAUTI. CVL dced. UCx grew pseudamonas. Recephin Dced and cefepime started. 01/14 Pain and hematoma over site of pacemaker insertion, Hgb stable. 2 runs of VT self limiting. Lopressor started. ASSESSMENT & PLAN: Raghu Rosenthal is a 77yrs old Male with PMH of CAD s/p CABG x2 in [place] 10 years ago, HTN, HLD, porcine AVR who initially presented to [place] ED with complaints of SOB and midchest pressure. Transferred to [facility] in cardiogenic shock and admitted to CICU. After a brief floor stay pt was transferredback to the CICU. Valve in valve TAVR done 01/08/23. Now downgraded to CIU. 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 Given risk for CHB EP to consider pacemaker. - MARINE TECHNICIAN-P device placed 01/12 HFrEF Hematoma TTE 01/09 40-45%. Patient initially presenting with cardiogenic shock and reduced EF on 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 years ago - Aldactone 25mg qd - Lopressor 12.5mg bid - Advance GDMT as tolerated - Bumex gtt - PT/OT - MARINE TECHNICIAN-P device placed 01/12 - Hematoma over MARINE TECHNICIAN-P, EP consulted, will place weighted bag over, no discharge or overt signs of infection - AdvHF consulted Cardiogenic Shock - resolved NSTEMI Nonsustained VT New LBBB, chest pain. [facility] with Severe three-vessel disease with patent AVERY to LAD, intermediate stenosis in mid RCA, 60% distal left main stenosis. Culprit for his VA appears to be an occluded SVG to ramus graft. There is flow in the ramus with proximal 70% stenosis. 2x nonsustained VT 01/14 - ASA 81mg qd - Plavix 75mg qd - Pt not tolerant of statins Acute Hypoxic Respiratory Failure - Wean O2 as tolerated FILIBERTO on CKD II UTI Urinary Retention Baseline creatinine 1.6. - Monitor - Renally dose meds - Avoid nephrotoxins - Cefepime 1g IV q12h f7 days (last dose 01/20) - Urine cx grew pseudomonas - Susceptible to cefepime and cipro. - Bruno exchanged 01/13 HTN - Advance antihypertensives as tolerated HLD Pt does not tolerate statins. - Fenofibrate 145mg qam FEN: Fluids: none Electrolytes: Will replace to keep K >4, Phos >3, Mg >2 Nutrition: cardiac diet DVT Prophylaxis: heparin Dispo: CIU Code Status: Full Code The assessment and plan above was discussed with the attending physician, Abdoulaye Canales MD Interval Events (Previous 24-hrs): NAEON SUBJECTIVE: No CP/SOB. Review of Systems: Review of Systems Constitutional: Negative for chills and fever. HENT: Negative for sore throat. Eyes: Negative for redness. Respiratory: Positive for shortness of breath. Cardiovascular: Positive for leg swelling. Negative for chest pain. Gastrointestinal: Negative for abdominal pain, diarrhea, nausea and vomiting. Genitourinary: Negative for dysuria. Musculoskeletal: Negative for myalgias. Skin: Negative for rash. Neurological: Negative for speech difficulty. Psychiatric/Behavioral: Negative for agitation. OBJECTIVE: Vitals: Blood pressure (!) 113/47, pulse 87, temperature 36.6 ??C (97.9 ??F), resp. rate 18, height 1.753 m, weight 117.4 kg, SpO2 93 %. Max Blood Pressure: Systolic (24hrs), Av , Min:113 , Max:133 Diastolic (24hrs), Av, Min:42, Max:63 Physical Exam: General: NAD lying comfortably in bed, not in distress Eyes: conjunctivae sclerae clear HENT: NC/AT Neck: supple, +JVD, no bruit Lungs: CTAB no w/r/r. Good air movement. Heart: RRR, normal S1, S2, systolic murmur, no gallops, or rubs. Abdomen: soft, nontender, nondistended, + bowel sounds, no organomegally, or masses Neuro: Alert, oriented X3, no focal neurological signs, moving all 4 extremities, Extremities: 2+ pitting edema in RLE, no edema of LLE. Skin: Soft ball sized mass on left chest wall over pacemaker site. TTP. Psych: normal affect Patient Data: I/O's: Intake/Output Summary (Last 24 hours) at 01/15/2023 1143 Last data filed at 01/15/2023 1000 Gross per 24 hour Intake 800 ml Output 3150 ml Net -2350 ml Weight change: 1.406 kg Height/Weight: Admission:Weight: 121.7 kg Today's: Weight: 117.4 kg BMI: Body mass index is 38.2 kg/m??. Current Medications: aspirin, 81 mg, DAILY bisacodyL, 5 mg, DAILY cefePIME, 1 g, EVERY 12 HOURS clopidogreL, 75 mg, DAILY escitalopram, 20 mg, DAILY fenofibrate, 145 mg, WITH BREAKFAST ferrous sulfate, 325 mg, Q48HR folic acid, 1 mg, DAILY gabapentin, 100 mg, QHS [Held by Provider] hepARIN subcutaneous injection, 7,500 Units, Q8HR HYDROmorphone, 0.5 mg, ONCE insulin lispro, , QID-WITH MEALS and BEDTIME melatonin, 5 mg, QHS metoprolol tartrate, 12.5 mg, BID pantoprazole, 40 mg, 0600 polyethylene glycol, 17 g, DAILY [Held by Provider] sevelamer carbonate, 0.8 g, TID-WITH MEALS sodium chloride, 3 mL, Q8HR spironolactone, 25 mg, DAILY thiamine mononitrate, 100 mg, DAILY tiotropium, 1 Capsule, RTDAILY [Held by Provider] traZODone, 100 mg, QPM bumetanide, Last Rate: 1 mg/hr (01/15/23 1000) albuterol HFA, 2 Puff, [id number] dextrose, 15 g, PRN dextrose 50% in water, 25 mL, PRN dextrose 50% in water, 50 mL, PRN ondansetron, 4 mg, [id number] oxyCODONE, 5 mg, Q6AD-QBE phenoL, 1 [place], PRN Lab Results: Recent Labs 01/13/23 0416 01/14/23 0518 01/14/23 1645 01/15/23 0417 WBC 7.87 7.59 8.22 HEMOGLOBIN 8.8* 8.8* 8.8* 8.6* HEMATOCRIT 28.8* 28.8* 29.1* 28.7* 28.1* NEUTROPHIL # 6.44 5.60 5.39 NEUTROPHIL % 81 74 66 MCV 97.0 96.7 96.6 PLATELET 108* 127* 127* Recent Labs 01/14/23 0518 01/14/23 0737 01/14/23 1645 01/14/23 1710 01/15/23 0417 01/15/23 0746 01/15/23 1134 SODIUM 132* 131* 130* POTASSIUM 3.2* 3.9 3.9 CHLORIDE 93* 91* 92* GLUCOSE POCT < > < > 113* 125* GLUCOSE 110* 112* 102 BUN 97* 98* 96* CREATININE 1.76* 1.74* 1.70* < > = values in this interval not displayed. Recent Labs 01/14/23 0518 01/14/23 1645 01/15/23 0417 MAGNESIUM 1.7 2.0 1.7 Recent Labs 01/13/23 0416 01/14/23 0518 01/15/23 0417 PHOSPHORUS 3.5 3.1 2.8 Diagnostics (Reviewed): XRAY CHEST 1 VIEW Result Date: 01/14/2023 IMPRESSION: Improving right upper lobe and left basilar pulmonary opacities. This report was dictated by Lan Hammond M.D. Reading Doctor: Jacek Severino Electronic Signature by: Jacek Severino XRAY CHEST 1 VIEW Result Date: 01/12/2023 IMPRESSION: Interval left-sided 3-lead pacer, no pneumothorax. Similar right suprahilar and left basilar pulmonary opacities with small bilateral pleural effusions. Reading Doctor: Miller Mills Electronic Signature by: Miller Mills ECHO Result Date: 01/15/2023 Reason for Exam: Aortic Valve Disorder Date of Service: 01/08/2023 Patient Height 175.0 cm Patient Weight 120.0 kg Systolic Pressure 103 mmHg Diastolic Pressure 69 mmHg Study Location E[facility] BSA 2.3 m^2Procedure: A two-dimensional transthoracic echocardiogram with color flow and Doppler was performedin limited views only. Study Quality: Technically adequate. MMode 2D Measurements & Calculations LVOT diam - 2.4 cm LVOT area - 4.6 cm^2 LVOT area(traced) - 4.9 cm^2 Doppler Measurements & Calculations Ao V2 max - 169.3 cm/sec Ao max PG - 11.5 mmHg Ao max PG (full) - 9.6 mmHg Ao V2 mean - 105.9 cm/sec Ao mean PG - 5.3 mmHg Ao mean PG (full) - 4.4 mmHg Ao V2 VTI - 34.2 cm CHELITA(I,A) - 1.8 cm^2 CHELITA(I,D) - 1.8 cm^2 CHELITA(V,A) - 1.9 cm^2 CHELITA(V,D) - 1.9 cm^2 LVOT max gradient - 1.9 mmHg LV V1 mean PG - 0.93 mmHg LVOT max bee - 69.2 cm/sec LV V1 mean - 42.5 cm/sec LV V1 VTI - 13.3 cm SV(LVOT) -61.8 ml SI(LVOT) - 26.6 ml/m^2 Conclusion Limited echocardiogram in the OR during TAVR. Pre-TAVR Moderatelty reduced LV function, EF 35-40%. Severe prosthetic aortic stenosis. Mild mitral regurgitatio n. Post TAVR Moderately reduced LV function, EF 35-40%. S/p TAVR with 26 mm Evolut FX (within 25 mmMagna) post dilated with 23 mm True balloon. Peak AV bee 1.7 m/s. MG 5 mmHg. CHELITA 2 cm2. No paravalvular leak. InterpretingPhysician:Interpreting Physician: Timothy Monroe, electronically signed on 2023-01-15 10:23:[id number] ECHO Result Date: 01/10/2023 Reason for Exam: Aortic Valve Replacement Date of Service: 01/09/2023 Patient Height 175.0 cm Patient Weight 125.0 kg Systolic Pressure 148 mmHg Diastolic Pressure 51 mmHg Study Location E[facility] BSA 2.4 m^2 Procedure: A complete two- dimensional transthoracic echocardiogram was performed (2D, M-mode, spectral and color flow Doppler). Study Quality: Technically adequate. A contrast injection of Definity was performed to improve assessment of LV function. Left Ventricle: The left ventricle is mildly dilated. There is normal left ventricular wall thickness. LVEDD 5.9 cm. Ejection Fraction = 40-45%. Abnormal (paradoxical) septal motion consistent with LBBB. Mild to moderate global hypokinesis. Inferi or and lateral vega move best. There is no thrombus. LV diastolic function can not be accurately assessed. Left Atrium: The left atrium is mildly dilated. Right Atrium: Right atrial size is normal. Right Ventricle: The right ventricle is normal in size and function. Aortic Valve: The peak aortic valve velocity 307 cm/s. Aortic mean pressure gradient= 18 mmHg. VTI ratio 0.39. No paravalvular leak. S/p [id number] TAVR with 26 mm Evolut FX (within 25 mm Magna, post dilated with 23 mm True balloon) on 01/08/23. Well-seated, normally functioning aortic prosthesis. Mitral Valve: The mitral valve is normal in structure and function. There is mild mitral regurgitation. Tricuspid Valve: Structurally normal tricuspid valve. There was insufficient TR detected to calculate RV systolic pressure. Pulmonic Valve: The Pulmonic Valve is partially seen. Mild pulmonic valvular regurgitation. Arteries:The aortic root is normal size. Venous: Systolic blunting was observed in the RUPV spectral Dopplerflow pattern. The inferior vena cava is normal in size, with a normal collapsibility index. Pericardium/Pleura: There is no pericardial effusion. MMode 2D Measurements & Calculations IVSd - 1.1 cm LVIDd - 5.9 cm LVIDs - 4.1 cm LVPWd - 1.5 cm IVS/LVPW - 0.7 FS - 31.4 % EDV(Teich) - 176.1 ml ESV(Teich) - 73.3 ml EF(Teich) - 58.4 % EF (est.) - 44.4 % EDV(cubed) - 209.9 ml ESV(cubed) - 67.8 ml EF(cubed) - 67.7 % LV mass(C)d - 341.4 grams LV mass(C)dI - 144.4 grams/m^2 SV(Teich) - 102.8 ml SI(Teich) - 43.5 ml/m^2 SV(cubed) - 142.1 ml SI(cubed) - 60.1 ml/m^2 Ao root diam - 2.7 cm Ao root area -5.6 cm^2 LA dimension - 4.7 cm LA/Ao - 1.8 LVOT diam - 2.4 cm LVOT area - 4.4 cm^2 LVOT area(traced) - 4.5 cm^2 LVLd ap4 - 10 cm EDV(MOD-sp4) - 187 ml LVLs ap4 - 9.6 cm ESV(MOD-sp4) - 106 ml EF(MOD-sp4) - 43.3 % LVLd ap2 - 9.7 cm EDV(MOD-sp2) - 154 ml LVLs ap2 - 8.6 cm ESV(MOD-sp2) - 76 ml EF(MOD-sp2) - 50.6 % SV(MOD-sp4) - 81 ml SI(MOD-sp4) - 34.3 ml/m^2 SV(MOD-sp2) - 78 ml SI(MOD-sp2) - 33 ml/m^2 Doppler Measurements & Calculations MV E max bee - 121 cm/sec MV A max bee - 113 cm/sec MV E/A - 1.1 MV dec time - 0.26 sec Ao V2 max - 293.1 cm/sec Ao max PG - 34.4 mmHg Ao max PG (full) - 28.5 mmHg Ao V2 mean - 187.7 cm/sec Ao mean PG - 16.9 mmHg Ao mean PG (full) - 13.8 mmHg Ao V2 VTI - 59.8 cm CHELITA(I,A) - 1.8 cm^2 CHELITA(I,D) - 1.8 cm^2 CHELITA(V,A) - 1.8 cm^2 CHELITA(V,D) - 1.8 cm^2 LVOT max gradient - 5.9 mmHg LV V1 mean PG - 3 mmHg LVOT max bee - 121.3 cm/sec LV V1 mean - 79.8 cm/sec LV V1 VTI- 25 cm SV(Ao) - 333 ml SI(Ao) - 140.8 ml/m^2 SV(LVOT) - 109.9 ml SI(LVOT) - 46.5 ml/m^2 PA V2 max - 173.7 cm/sec PA max PG - 12.1 mmHg Conclusion The left ventricle is mildly dilated. Ejection Fraction = 40-45%. Abnormal (paradoxical) septal motion consistent with LBBB. The right ventricle is normal in size and function. The left atrium is mildly dilated. S/p [id number] TAVR with 26 mm Evolut FX (within 25 mm Magna, post dilated with 23 mm True balloon) on 01/08/23. Well-seated, normally functioning aortic prosthesis. No paravalvular leak. The peak aortic valve velocity 3.1 m/s. Aortic mean pressure gradient= 18 mmHg. VTI ratio 0.39. There is mild mitral regurgitation. InterpretingPhysician:Interpreting Physician: Timothy Monroe, electronically signed on 2023-01-10 16:37:24.54 ECHO Result Date: 12/28/2022 Reason for Exam: Chest Pain Date of Service: 12/28/2022 Interpretation Summary There is no comparison study available. Patient Height 175.0 cm Patient Weight 127.0 kg Systolic Pressure 132 mmHg Diastolic Pressure 53 mmHg Study Location [facility] BSA 2.4 m^2 Procedure: A complete two-dimensional transthoracic echocardiogram was performed (2D, M-mode, spectral and color flow Doppler). Study Quality: Fair. The study was technically difficult with many images being suboptimal in quality. A contrast injection of Definity was performed to improve assessment of LV function. Left Ventricle: The left ventricular mass index is increased. There is mild concentric left ventricular hypertrophy. LVEDV 299 ml with BSA 2.4 m2 The ejection fraction measured by 2D BP MOD is41%. The LV ejection fraction is severely decreased. Akinesis of the apex and periapical segments, anteroseptum with better motion of the LV base representing, until proven otherwise, LAD territory issues on a background of moderate aortic stenosis. There is no thrombus. LV diastolic function can not be accurately assessed. E/E' averaged>13 Left Atrium: The left atrial volume is mildly increased. Right Atrium: Right atrial size is normal. Right Ventricle: The right ventricular systolic function is normal. Aortic Valve: Focal calcification. The aortic valve is not well visualized. The peak aortic valve velocity 385 cm/s. Aortic mean pressure gradient= 32 mmHg. The aortic valve velocity ratio was calculated at 0.27. Mitral Valve: Both leaflets are pliable and mobile. There is trace mitral regurgitation. Tricuspid Valve: The tricuspid valve is not well visualized. There was insufficient TR detected to calculate RV systolic pr essure. Pulmonic Valve: The pulmonic valve is not well visualized. Trace pulmonic valvular regurgitation. Arteries: The aortic root is normal size. There is aortic root sclerosis/calcification. Aortic arch not seen well. Venous: Severely dilated inferior vena cava. Pericardium/Pleura: There is no pericardial effusion. MMode 2D Measurements & Calculations IVSd - 1.2 cm LVIDd - 5.9 cm LVIDs - 4.7 cm LVPWd - 1.1 cm IVS/LVPW - 1.1 FS - 20.9 % EDV(Teich) - 172.5 ml ESV(Teich) - 100.2 ml EF(Teich) - 41.9 % EF (est.) - 41.1 % EDV(cubed) - 204.3 ml ESV(cubed) - 101 ml EF(cubed) - 50.6 % LV mass(C)d - 277.7 grams LV mass(C)dI - 116.6 grams/m^2 SV(Teich) - 72.4 ml SI(Teich) - 30.4 ml/m^2 SV(cubed) - 103.3 ml SI(cubed) - 43.4 ml/m^2 Ao root diam - 3.4 cm Ao root area - 9.3 cm^2 LA dimension - 4.7 cm LA/Ao - 1.4 LVLd ap4 - 11.6 cm EDV(MOD-sp4) - 289 ml LVLs ap4 - 10.1 cm ESV(MOD-sp4) - 176 ml EF(MOD-sp4) - 39.1 % LVLd ap2 - 11.3 cm EDV(MOD- sp2) - 302 ml LVLs ap2 - 10.1 cm ESV(MOD-sp2) - 176 ml EF(MOD-sp2) - 41.7 % SV(MOD-sp4) - 113 ml SI(MOD-sp4) - 47.5 ml/m^2 SV(MOD-sp2) - 126 ml SI(MOD-sp2) - 52.9 ml/m^2 Doppler Measurements & Calculations MV E max bee - 93.3 cm/sec MV A max bee - 113.7 cm/sec MV E/A - 0.82 MV dec time - 0.17 sec Ao V2 max - 330.8 cm/sec Ao max PG - 46.5 mmHg Ao max PG (full) - 42.4 mmHg Ao V2 mean - 223.4 cm/sec Ao mean PG - 24.8 mmHg Ao mean PG (full) - 22.8 mmHg Ao V2 VTI - 64.6 cm LVOT max gradient - 4.2 mmHg LV V1 mean PG - 2 mmHg LVOT max bee - 101.7 cm/sec LV V1 mean - 68.2 cm/sec LV V1 VTI - 20.4 cm SV(Ao) - 600 ml SI(Ao) - 252 ml/m^2 PA V2 max - 121.7 cm/sec PA max PG - 5.9 mmHg Conclusion The study was technically difficult with many images beingsuboptimal in quality. The left ventricular mass index is increased. E/E' averaged >13 The ejection fraction measured by 2D BP MOD is41%. Akinesis of the apex and periapical segments, anteroseptumwith better motion of the LV base representing, until proven otherwise, LAD territory issues on a background of moderate aortic stenosis. InterpretingPhysician:Interpreting Physician: Papi Delcid, electronically signed on 2022-12-28 16:16:52.52 EKG: None new. Electronically signed by: Miller Cooper MD PGY-1, Internal Medicine Pager #[phone] Cortext Preferred Associated attestation - Abdoulaye Canales MD - 02/04/2023 7:57 PM EDT Cardiology Attending Note Patient Name: Raghu Rosenthal Gender: Male Age: 77yrs :1945 MR #: [id number] MEG #:[id number] Attending Provider: No att. providers found I saw and evaluated Raghu Rosenthal, a 77yrs-year old Male with cardiology inpatient resident/consult/CICU team on 01/15/2023 and agree with the facts as documented in the note. Patient received a MARINE TECHNICIAN pacemaker on 01/12/2023. He had developed some hematoma over the device site and is currently getting pressure with a weighted sandbag to resolve the hematoma. His altered mental status is gradually resolving. We noticed 2 episodes of nonsustained VT. He is diuresing well and getting better at Bumex 1 mg/h. Placement discussions being active at this time. Electronically signed by: Abdoulaye Canales MD, FAC, [facility] [employer] Line Painter of Cardiology [facility] * Indigo Shi RN - 01/15/2023 5:13 AM EDT Shift Summary Patient resting comfortably in bed Pacemaker insertion site is swollen and sand bag is kept over the PPM site throughout the shift but there is no bleeding noted .Hematoma Present Paced Rhythm on monitor. BUMEX drip is infusing per MAR . AM labs collected Bruno cath intact and draining clear yellowurine..Patient's needs assessed every hour and as needed by staff.Pt denies pain, SOB or chest painat this time.Had 2 BM at night Safety precautions maintained throughout the shift,Pt remained free from fall and injury.Bed in low position, wheels locked,call vasquez within reach. VSS,NAD,ambu/code equipment at bedside.Will report POC to oncstephen RN. * Indigo Shi RN - 01/14/2023 7:30 PM EDT Report received from Casi DUMONT. Walking rounds completed. Patient lying comfortably in bed. Reports no needs or concerns at this time. Bumex drip is infusing per MAR.Bruno Cath in situ . Call vasquez within reach, encouraged pt to call for any need. Bed in lowest position with wheels locked,Ambu/code equipment at bedside. Chart reviewed including PMR, allergies, order history, MAR, Labs and POC. Telemetry intact. Will continue to monitor. * Casi Norton RN - 01/14/2023 6:55 PM EDT Safety precautions maintained throughout shift, pt remained free from injury. Patients needs assessed every hour and PRN by staff. engine monitor remains intact with paced rhythm showing on the monitor. PIV WNL, patency confirmed on rounds. Scheduled medications given per MAR order. Bumex gtt infusing per MAR at this time. Bruno intact. Sandbag applied to PPM site at this time and throughout shift for swelling and hematoma. No bleeding noted. MD notified and updated throughout shift through multiple secure texts and face to face discussions, see orders. Pt up to chair during shift, rachna, pt stated I feel so happy once getting into the chair. Continues on IV abx. Pt with episodeof Vtach, remained stable in NAD with report of my heart bounding and appearing spasm of L arm. MD notified and present at bedside, see orders. CXR done to confirm lead placement, EKG done and in EHR. Metoprolol added. Mag and K replaced. SQ heparin on hold. Pt currently denies pain, SOB or chestpain at this time. Will report POC to oncoming RN, pt denies further needs. Bed in lowest position,wheels locked, call vasquez in reach. Ambu/Code equipment at bedside. VSS, NAD. * Miller Cooper MD - 01/14/2023 6:08 AM EDT Images from the original note were not included. [facility] - Cardiology Teaching Service Progress Note Service Pager (call #1, internal sales engineer) #[phone] Service Pager (call #2, senior) #[phone] PATIENT IDENTIFICATION: Patient Name: Raghu Rosenthal Age: 77yrs Sex: Male : 1945 MEG: [id number] Admit Date: 12/28/2022 1:45 PM Today's Date: 01/14/2023 Length of Stay: 16 days Admit Diagnosis: NSTEMI (non-ST elevated myocardial infarction) ([facility]) [I21.4] Primary Diagnosis: S/P TAVR (transcatheter aortic valve replacement) Room: [facility] PCP: Williams Yip MD Primary Insurance: @[email or web address]@ Secondary Insurance: @[email or web address]@ HOSPITAL COURSE Raghu Rosenthal is a 77yrs Male with PMH of CAD s/p CABG x2 in [place] 10 years ago, HTN, HLD, porcine AVR who initially presented to [place] ED with complaints of SOB and midchest pressure. Patient lives in [place] with his , and is visiting [facility] for the next 3 months. He recently had a [facility]. Following this procedure he had worsening SOB associated with fatigue, malaise and generalized weakness. EMS was called and he was brought to [place] ED. On arrival he was noted to be in mild respiratory distress and required bipap. WBC of 19. EKG without NUNO, troponin 1.197. CXR consistent with mild interstitial edema, and a small left pleural effusion. He was given nitro sublingual and morphine, and started on BID lovenox. He was admitted to the ICU at [place]. He was started on empiric vanc, cefepime for possible infection. He was hypotensive requiring levophed with a differential of cardiogenic vs septic shock. He had a repeat EKG done on 12/28 with a new LBBB. His troponin trended as high as 39. Given concerns for acute coronary syndrome, he was transferred to [facility] for [facility] management[facility], patient is awake and alert. He is on low dose levophed. He is warm to the touchand appears well perfused. POCUS with EF visually estimated at 45%. Breathing comfortably on room air. He underwent a R/LHC 12/28/2022 showing severe three-vessel disease with patent AVERY to LAD, intermediate stenosis in mid RCA, 60% distal left main stenosis, culprit for his VA appears to be an occluded SVG to ramus graft. He was also noted to have severely degenerated bioprosthetic aortic valve, invasive gradients reviewed severely stenotic with mean gradient over 40 mmHg. He was transferred out to the [facility] cards service while workup for TAVR was done. He was transferred back to CICU on 01/04for optimization prior to TAVR. He underwent TAVR on 01/08. Transferred back to CICU on 01/10 for ongoing heart failure management. 01/10 Patient transferred back to CICU from CVICU post TAVR for ongoing decompensated heart failure.On arrival to CICU pt is awake and alert, hemodynamically stable. His only complaint is a sore throat. Denies chest pain or shortness of breath. On a bumex drip. 01/11 Transfer to CIU. 01/12 MARINE TECHNICIAN-P defibrillator placed. Started on rocephin for UTI. 01/13 Bruno catheter exchanged due to CAUTI. CVL dced. UCx grew pseudamonas. Recephin Dced and cefepime started. ASSESSMENT & PLAN: Raghu Rosenthal is a 77yrs old Male with PMH of CAD s/p CABG x2 in [place] 10 years ago, HTN, HLD, porcine AVR who initially presented to [place] ED with complaints of SOB and midchest pressure. Transferred to [facility] in cardiogenic shock and admitted to CICU. After a brief floor stay pt was transferredback to the CICU. Valve in valve TAVR done 01/08/23. Now downgraded to CIU. 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 Given risk for CHB EP to consider pacemaker. - EP onboard for possible pacemaker HFrEF TTE 01/09 40-45%. Patient initially presenting with cardiogenic shock and reduced EF on 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 years ago - Aldactone 25mg qd - Advance GDMT as tolerated - Bumex gtt - PT/OT - MARINE TECHNICIAN-P device placed 01/12 Cardiogenic Shock - resolved NSTEMI New LBBB, chest pain. [facility] with Severe three-vessel disease with patent AVERY to LAD, intermediate stenosis in mid RCA, 60% distal left main stenosis. Culprit for his VA appears to be an occluded SVG to ramus graft. There is flow in the ramus with proximal 70% stenosis. - ASA 81mg qd - Plavix 75mg qd - Pt not tolerant of statins Acute Hypoxic Respiratory Failure - Wean O2 as tolerated FILIBERTO on CKD II UTI Urinary Retention Baseline creatinine 1.6. - Monitor - Renally dose meds - Avoid nephrotoxins - Cefepime 1g IV q12h f7 days (last dose 01/20) - Urine cx grew pseudomonas - F/u susceptibilities - Bruno exchanged 01/13 HTN - Advance antihypertensives as tolerated HLD Pt does not tolerate statins. - Fenofibrate 145mg qam FEN: Fluids: none Electrolytes: Will replace to keep K >4, Phos >3, Mg >2 Nutrition: cardiac diet DVT Prophylaxis: heparin Dispo: CIU Code Status: Full Code The assessment and plan above was discussed with the attending physician, Tariq Carl MD Interval Events (Previous 24-hrs): NAEON SUBJECTIVE: No CP or SOB, pt reported improvement in sxs Review of Systems: Review of Systems Constitutional: Negative for chills and fever. HENT: Negative for sneezing. Eyes: Negative for visual disturbance. Respiratory: Positive for shortness of breath. Cardiovascular: Positive for leg swelling. Negative for chest pain. Gastrointestinal: Negative for abdominal pain, diarrhea, nausea and vomiting. Genitourinary: Negative for dysuria. Musculoskeletal: Negative for myalgias. Skin: Negative for rash. Neurological: Negative for speech difficulty. Psychiatric/Behavioral: Negative for agitation. OBJECTIVE: Vitals: Blood pressure 121/52, pulse 76, temperature 36.4 ??C (97.5 ??F), resp. rate 19, height 1.753 m, weight 116 kg, SpO2 97 %. Max Blood Pressure: Systolic (24hrs), Av , Min:105 , Max:143 Diastolic (24hrs), Av, Min:51, Max:63 Physical Exam: General: NAD lying comfortably in bed, not in distress Eyes: conjunctivae sclerae clear HENT: MMM Neck: supple, +JVD, no bruit Lungs: CTAB no w/r/r. Normal work of breathing. Heart: RRR, normal S1, S2, systolic murmur, no gallops, or rubs. Abdomen: soft, nontender, nondistended, + bowel sounds, no organomegally, or masses Neuro: Alert, oriented X3, no focal neurological signs, moving all 4 extremities, Extremities: 2+ pitting edema in RLE, no edema of LLE. Skin: warm, no pallor, no cyanosis, no rashes, no ecchymoses Psych: normal affect Patient Data: I/O's: Intake/Output Summary (Last 24 hours) at 01/14/2023 0608 Last data filed at 01/14/2023 0400 Gross per 24 hour Intake 342.84 ml Output 2325 ml Net -1982.16 ml Weight change: -1.452 kg Height/Weight: Admission:Weight: 121.7 kg Today's: Weight: 116 kg BMI: Body mass index is 37.74 kg/m??. Current Medications: aspirin, 81 mg, DAILY bisacodyL, 5 mg, DAILY cefePIME, 1 g, EVERY 12 HOURS clopidogreL, 75 mg, DAILY escitalopram, 20 mg, DAILY fenofibrate, 145 mg, WITH BREAKFAST gabapentin, 100 mg, QHS hepARIN subcutaneous injection, 7,500 Units, Q8HR insulin lispro, , QID-WITH MEALS and BEDTIME melatonin, 5 mg, QHS pantoprazole, 40 mg, 0600 polyethylene glycol, 17 g, DAILY [Held by Provider] sevelamer carbonate, 0.8 g, TID-WITH MEALS sodium chloride, 3 mL, Q8HR spironolactone, 25 mg, DAILY tiotropium, 1 Capsule, RTDAILY [Held by Provider] traZODone, 100 mg, QPM bumetanide, Last Rate: 1 mg/hr (01/14/23517) albuterol HFA, 2 Puff, [id number] dextrose, 15 g, PRN dextrose 50% in water, 25 mL, PRN dextrose 50% in water, 50 mL, PRN ondansetron, 4 mg, I0HQ-[id number] phenoL, 1 [place], PRN Lab Results: Recent Labs 01/12/23 03001/13/2341501/14/2318 WBC 5.51 7.87 7.59 HEMOGLOBIN 8.6* 8.8* 8.8* HEMATOCRIT 27.6* 28.8* 28.8* 29.1* NEUTROPHIL # 4.18 6.44 5.60 NEUTROPHIL % 76 81 74 MCV 95.2 97.0 96.7 PLATELET 88* 108* 127* Recent Labs 01/12/23 03001/12/23 0745 01/13/23 0416 01/13/23 0748 01/13/23 1807 01/13/238 01/14/2318 SODIUM 133* 132* 132* POTASSIUM 3.6 3.7 3.2* CHLORIDE 93* 93* 93* GLUCOSE POCT < > < > 146* 129* GLUCOSE 98 94 110* BUN 102* 103* 97* CREATININE 1.90* 1.94* 1.76* < > = values in this interval not displayed. Recent Labs 01/12/23 03001/13/23 0416 01/14/23 0518 MAGNESIUM 1.9 1.7 1.7 Recent Labs 01/12/23 03001/13/23 0416 01/14/23 0518 PHOSPHORUS 3.4 3.5 3.1 Diagnostics (Reviewed): XRAY CHEST 1 VIEW Result Date: 01/12/2023 IMPRESSION: Interval left-sided 3-lead pacer, no pneumothorax. Similar right suprahilar and left basilar pulmonary opacities with small bilateral pleural effusions. Reading Doctor: Miller Mills Electronic Signature by: Miller Mills XRAY CHEST 1 VIEW Result Date: 01/10/2023 IMPRESSION: No pneumothorax. Persistent bilateral upper lobe opacities. Improved pulmonary edema. Reading Doctor: Hugh Salcido Electronic Signature by: Hugh Salcido ECHO Result Date: 01/10/2023 Reason for Exam: Aortic Valve Replacement Date of Service: 01/09/2023 Patient Height 175.0 cm Patient Weight 125.0 kg Systolic Pressure 148 mmHg Diastolic Pressure 51 mmHg Study Location [facility] BSA 2.4 m^2 Procedure: A complete two- dimensional transthoracic echocardiogram was performed (2D, M-mode, spectral and color flow Doppler). Study Quality: Technically adequate. A contrast injection of Definity was performed to improve assessment of LV function. Left Ventricle: The left ventricle is mildly dilated. There is normal left ventricular wall thickness. LVEDD 5.9 cm. Ejection Fraction = 40-45%. Abnormal (paradoxical) septal motion consistent with LBBB. Mild to moderate global hypokinesis. Inferi or and lateral vega move best. There is no thrombus. LV diastolic function can not be accurately assessed. Left Atrium: The left atrium is mildly dilated. Right Atrium: Right atrial size is normal. Right Ventricle: The right ventricle is normal in size and function. Aortic Valve: The peak aortic valve velocity 307 cm/s. Aortic mean pressure gradient= 18 mmHg. VTI ratio 0.39. No paravalvular leak. S/p [id number] TAVR with 26 mm Evolut FX (within 25 mm Magna, post dilated with 23 mm True balloon) on 01/08/23. Well-seated, normally functioning aortic prosthesis. Mitral Valve: The mitral valve is normal in structure and function. There is mild mitral regurgitation. Tricuspid Valve: Structurally normal tricuspid valve. There was insufficient TR detected to calculate RV systolic pressure. Pulmonic Valve: The Pulmonic Valve is partially seen. Mild pulmonic valvular regurgitation. Arteries:The aortic root is normal size. Venous: Systolic blunting was observed in the RUPV spectral Dopplerflow pattern. The inferior vena cava is normal in size, with a normal collapsibility index. Pericardium/Pleura: There is no pericardial effusion. MMode 2D Measurements & Calculations IVSd - 1.1 cm LVIDd - 5.9 cm LVIDs - 4.1 cm LVPWd - 1.5 cm IVS/LVPW - 0.7 FS - 31.4 % EDV(Teich) - 176.1 ml ESV(Teich) - 73.3 ml EF(Teich) - 58.4 % EF (est.) - 44.4 % EDV(cubed) - 209.9 ml ESV(cubed) - 67.8 ml EF(cubed) - 67.7 % LV mass(C)d - 341.4 grams LV mass(C)dI - 144.4 grams/m^2 SV(Teich) - 102.8 ml SI(Teich) - 43.5 ml/m^2 SV(cubed) - 142.1 ml SI(cubed) - 60.1 ml/m^2 Ao root diam - 2.7 cm Ao root area -5.6 cm^2 LA dimension - 4.7 cm LA/Ao - 1.8 LVOT diam - 2.4 cm LVOT area - 4.4 cm^2 LVOT area(traced) - 4.5 cm^2 LVLd ap4 - 10 cm EDV(MOD-sp4) - 187 ml LVLs ap4 - 9.6 cm ESV(MOD-sp4) - 106 ml EF(MOD-sp4) - 43.3 % LVLd ap2 - 9.7 cm EDV(MOD-sp2) - 154 ml LVLs ap2 - 8.6 cm ESV(MOD-sp2) - 76 ml EF(MOD-sp2) - 50.6 % SV(MOD-sp4) - 81 ml SI(MOD-sp4) - 34.3 ml/m^2 SV(MOD-sp2) - 78 ml SI(MOD-sp2) - 33 ml/m^2 Doppler Measurements & Calculations MV E max bee - 121 cm/sec MV A max bee - 113 cm/sec MV E/A - 1.1 MV dec time - 0.26 sec Ao V2 max - 293.1 cm/sec Ao max PG - 34.4 mmHg Ao max PG (full) - 28.5 mmHg Ao V2 mean - 187.7 cm/sec Ao mean PG - 16.9 mmHg Ao mean PG (full) - 13.8 mmHg Ao V2 VTI - 59.8 cm CHELITA(I,A) - 1.8 cm^2 CHELITA(I,D) - 1.8 cm^2 CHELITA(V,A) - 1.8 cm^2 CHELITA(V,D) - 1.8 cm^2 LVOT max gradient - 5.9 mmHg LV V1 mean PG - 3 mmHg LVOT max bee - 121.3 cm/sec LV V1 mean - 79.8 cm/sec LV V1 VTI- 25 cm SV(Ao) - 333 ml SI(Ao) - 140.8 ml/m^2 SV(LVOT) - 109.9 ml SI(LVOT) - 46.5 ml/m^2 PA V2 max - 173.7 cm/sec PA max PG - 12.1 mmHg Conclusion The left ventricle is mildly dilated. Ejection Fraction = 40-45%. Abnormal (paradoxical) septal motion consistent with LBBB. The right ventricle is normal in size and function. The left atrium is mildly dilated. S/p [id number] TAVR with 26 mm Evolut FX (within 25 mm Magna, post dilated with 23 mm True balloon) on 01/08/23. Well-seated, normally functioning aortic prosthesis. No paravalvular leak. The peak aortic valve velocity 3.1 m/s. Aortic mean pressure gradient= 18 mmHg. VTI ratio 0.39. There is mild mitral regurgitation. InterpretingPhysician:Interpreting Physician: Timothy Monroe, electronically signed on 2023-01-10 16:37:24.54 ECHO Result Date: 12/28/2022 Reason for Exam: Chest Pain Date of Service: 12/28/2022 Interpretation Summary There is no comparison study available. Patient Height 175.0 cm Patient Weight 127.0 kg Systolic Pressure 132 mmHg Diastolic Pressure 53 mmHg Study Location [facility] BSA 2.4 m^2 Procedure: A complete two-dimensional transthoracic echocardiogram was performed (2D, M-mode, spectral and color flow Doppler). Study Quality: Fair. The study was technically difficult with many images being suboptimal in quality. A contrast injection of Definity was performed to improve assessment of LV function. Left Ventricle: The left ventricular mass index is increased. There is mild concentric left ventricular hypertrophy. LVEDV 299 ml with BSA 2.4 m2 The ejection fraction measured by 2D BP MOD is41%. The LV ejection fraction is severely decreased. Akinesis of the apex and periapical segments, anteroseptum with better motion of the LV base representing, until proven otherwise, LAD territory issues on a background of moderate aortic stenosis. There is no thrombus. LV diastolic function can not be accurately assessed. E/E' averaged>13 Left Atrium: The left atrial volume is mildly increased. Right Atrium: Right atrial size is normal. Right Ventricle: The right ventricular systolic function is normal. Aortic Valve: Focal calcification. The aortic valve is not well visualized. The peak aortic valve velocity 385 cm/s. Aortic mean pressure gradient= 32 mmHg. The aortic valve velocity ratio was calculated at 0.27. Mitral Valve: Both leaflets are pliable and mobile. There is trace mitral regurgitation. Tricuspid Valve: The tricuspid valve is not well visualized. There was insufficient TR detected to calculate RV systolic pr essure. Pulmonic Valve: The pulmonic valve is not well visualized. Trace pulmonic valvular regurgitation. Arteries: The aortic root is normal size. There is aortic root sclerosis/calcification. Aortic arch not seen well. Venous: Severely dilated inferior vena cava. Pericardium/Pleura: There is no pericardial effusion. MMode 2D Measurements & Calculations IVSd - 1.2 cm LVIDd - 5.9 cm LVIDs - 4.7 cm LVPWd - 1.1 cm IVS/LVPW - 1.1 FS - 20.9 % EDV(Teich) - 172.5 ml ESV(Teich) - 100.2 ml EF(Teich) - 41.9 % EF (est.) - 41.1 % EDV(cubed) - 204.3 ml ESV(cubed) - 101 ml EF(cubed) - 50.6 % LV mass(C)d - 277.7 grams LV mass(C)dI - 116.6 grams/m^2 SV(Teich) - 72.4 ml SI(Teich) - 30.4 ml/m^2 SV(cubed) - 103.3 ml SI(cubed) - 43.4 ml/m^2 Ao root diam - 3.4 cm Ao root area - 9.3 cm^2 LA dimension - 4.7 cm LA/Ao - 1.4 LVLd ap4 - 11.6 cm EDV(MOD-sp4) - 289 ml LVLs ap4 - 10.1 cm ESV(MOD-sp4) - 176 ml EF(MOD-sp4) - 39.1 % LVLd ap2 - 11.3 cm EDV(MOD- sp2) - 302 ml LVLs ap2 - 10.1 cm ESV(MOD-sp2) - 176 ml EF(MOD-sp2) - 41.7 % SV(MOD-sp4) - 113 ml SI(MOD-sp4) - 47.5 ml/m^2 SV(MOD-sp2) - 126 ml SI(MOD-sp2) - 52.9 ml/m^2 Doppler Measurements & Calculations MV E max bee - 93.3 cm/sec MV A max bee - 113.7 cm/sec MV E/A - 0.82 MV dec time - 0.17 sec Ao V2 max - 330.8 cm/sec Ao max PG - 46.5 mmHg Ao max PG (full) - 42.4 mmHg Ao V2 mean - 223.4 cm/sec Ao mean PG - 24.8 mmHg Ao mean PG (full) - 22.8 mmHg Ao V2 VTI - 64.6 cm LVOT max gradient - 4.2 mmHg LV V1 mean PG - 2 mmHg LVOT max bee - 101.7 cm/sec LV V1 mean - 68.2 cm/sec LV V1 VTI - 20.4 cm SV(Ao) - 600 ml SI(Ao) - 252 ml/m^2 PA V2 max - 121.7 cm/sec PA max PG - 5.9 mmHg Conclusion The study was technically difficult with many images beingsuboptimal in quality. The left ventricular mass index is increased. E/E' averaged >13 The ejection fraction measured by 2D BP MOD is41%. Akinesis of the apex and periapical segments, anteroseptumwith better motion of the LV base representing, until proven otherwise, LAD territory issues on a background of moderate aortic stenosis. InterpretingPhysician:Interpreting Physician: Papi Delcid, electronically signed on 2022-12-28 16:16:52.52 EKG: Paced rhythm, stable from previous EKG. Electronically signed by: Miller Cooper MD PGY-1, Internal Medicine Pager #[phone] Cortext Preferred Associated attestation - Tariq Carl MD - 01/14/2023 9:54 AM EDT Cardiology Attending / Cardiac Electrophysiology Attending Note: I reviewed the notes and examined the patient with Dr. Cooper on 01/14/2023. I discussed the case with Dr. Cooper and agree with the examination, findings, and plans of care as documented in the resident's note. Already with MARINE TECHNICIAN-P implanted. He asked what his left upper chest bandage was . . Surprisedhe had forgotten. PT/OT and advance activity out of bed, ambulate with assistance. May need IPR or SNF for gaining strength afterwards. Electronically signed by Tariq Carl MD 01/14/2023 9:53 AM Hugo Carl MD [facility] Clinical [facility]ner Animal of Cardiology [facility] * Casi Norton RN - 01/13/2023 6:50 PM EDT No acute changes this shift. Safety precautions maintained throughout shift, pt remained free from injury. Patients needs assessed every hour and PRN by staff. engine monitor remains intact with paced rhythm showing on the monitor. PIV WNL, patency confirmed on rounds. Scheduled medications given per NOV order. Bumex gtt infusing per NOV at this time. New bruno placed today, see flowsheet. Foleyintact. PPM site WNL. Mild swelling noted, Dr. Cooper notified and aware. No hematoma or bleeding noted. Pt currently denies pain, SOB or chest pain at this time. Will report POC to oncoming RN, pt denies further needs. Bed in lowest position, wheels locked, call vasquez in reach. Ambu/Code equipment at bedside. VSS, NAD. * Alissa Loja RN - 01/13/2023 7:13 AM EDT End of shift summary Pt alert and oriented with confusions at times. Pt PM site dsg is clean , dry and intact, sling to his left arm placed. Turn q2. Pt with intermittent agitations; at the bedside. Safety precautions in place. Paced on tele monitor. Report given to [facility] day shift RN. * Miller oCoper MD - 01/13/2023 6:32 AM EDT Images from the original note were not included. [facility] - Cardiology Teaching Service Progress Note Service Pager (call #1, internal sales engineer) #[phone] Service Pager (call #2, senior) #[phone] PATIENT IDENTIFICATION: Patient Name: Raghu Rosenthal Age: 77yrs Sex: Male : 1945 MEG: [id number] Admit Date: 12/28/2022 1:45 PM Today's Date: 01/13/2023 Length of Stay: 15 days Admit Diagnosis: NSTEMI (non-ST elevated myocardial infarction) ([facility]) [I21.4] Primary Diagnosis: S/P TAVR (transcatheter aortic valve replacement) Room: [facility] PCP: Williams Yip MD Primary Insurance: [email or web address] Secondary Insurance: [email or web address] HOSPITAL COURSE Raghu Rosenthal is a 77yrs Male with PMH of CAD s/p CABG x2 in [place] 10 years ago, HTN, HLD, porcine AVR who initially presented to [place] ED with complaints of SOB and midchest pressure. Patient lives in [place] with his , and is visiting [facility] for the next 3 months. He recently had [facility]. Following this procedure he had worsening SOB associated with fatigue, malaise and generalized weakness. EMS was called and he was brought to [place] ED. On arrival he was noted to be in mild respiratory distress and required bipap. WBC of 19. EKG without NUNO, troponin 1.197. CXR consistent with mild interstitial edema, and a small left pleural effusion. He was given nitro sublingual and morphine, and started on BID lovenox. He was admitted to the ICU at [place]. He was started on empiric vanc, cefepime for possible infection. He was hypotensive requiring levophed with a differential of cardiogenic vs septic shock. He had a repeat EKG done on 12/28 with a new LBBB. His troponin trended as high as 39. Given concerns for acute coronary syndrome, he was transferred to [facility] health for further management. On arrival to CICU, patient is awake and alert. He is on low dose levophed. He is warm to the touchand appears well perfused. POCUS with EF visually estimated at 45%. Breathing comfortably on room air. He underwent a R/LHC 12/28/2022 showing severe three-vessel disease with patent AVERY to LAD, intermediate stenosis in mid RCA, 60% distal left main stenosis, culprit for his VA appears to be an occluded SVG to ramus graft. He was also noted to have severely degenerated bioprosthetic aortic valve, invasive gradients reviewed severely stenotic with mean gradient over 40 mmHg. He was transferred out to the ECU cards service while workup for TAVR was done. He was transferred back to CICU on 01/04for optimization prior to TAVR. He underwent TAVR on 01/08. Transferred back to CICU on 01/10 for ongoing heart failure management. 01/10 Patient transferred back to CICU from CVICU post TAVR for ongoing decompensated heart failure.On arrival to CICU pt is awake and alert, hemodynamically stable. His only complaint is a sore throat. Denies chest pain or shortness of breath. On a bumex drip. 01/11 Transfer to CIU. 01/12 MARINE TECHNICIAN-P defibrillator placed. Started on rocephin for UTI. 01/13 Bruno catheter exchanged due to CAUTI. CVL dced. ASSESSMENT & PLAN: Raghu Rosenthal is a 77yrs old Male with PMH of CAD s/p CABG x2 in [place] 10 years ago, HTN, HLD, porcine AVR who initially presented to [place] ED with complaints of SOB and midchest pressure. Transferred to ECU in cardiogenic shock and admitted to CICU. After a brief floor stay pt was transferredback to the CICU. Valve in valve TAVR done 01/08/23. Now downgraded to CIU. 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 Given risk for CHB EP to consider pacemaker. - EP onboard for possible pacemaker HFrEF TTE 01/09 40-45%. Patient initially presenting with cardiogenic shock and reduced EF on 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 years ago - Aldactone 25mg qd - Advance GDMT as tolerated - Bumex gtt - PT/OT - MARINE TECHNICIAN-D device placed Cardiogenic Shock - resolved NSTEMI New LBBB, chest pain. [facility] with Severe three-vessel disease with patent AVERY to LAD, intermediate stenosis in mid RCA, 60% distal left main stenosis. Culprit for his VA appears to be an occluded SVG to ramus graft. There is flow in the ramus with proximal 70% stenosis. - ASA 81mg qd - Plavix 75mg qd - Pt not tolerant of statins Acute Hypoxic Respiratory Failure - Wean O2 as tolerated FILIBERTO on CKD II UTI Baseline creatinine 1.6. - Monitor - Renally dose meds - Avoid nephrotoxins - Rocephin 1g IV qd f7 days (last dose 01/18) - Urine cx pending - Exchange bruno HTN - Advance antihypertensives as tolerated HLD Pt does not tolerate statins. - Fenofibrate 145mg qam FEN: Fluids: none Electrolytes: Will replace to keep K >4, Phos >3, Mg >2 Nutrition: cardiac diet DVT Prophylaxis: heparin Dispo: CIU Code Status: Full Code The assessment and plan above was discussed with the attending physician, Tariq Carl MD Interval Events (Previous 24-hrs): Pt with confusion overnight. Reoriented successfully. SUBJECTIVE: Pt A&O x4 today. No CP and improved SOB. Review of Systems: Review of Systems Constitutional: Negative for chills and fever. HENT: Negative for sinus pain and sore throat. Eyes: Negative for pain. Respiratory: Positive for shortness of breath. Cardiovascular: Positive for leg swelling. Negative for chest pain. Gastrointestinal: Negative for abdominal pain, diarrhea, nausea and vomiting. Genitourinary: Negative for dysuria. Musculoskeletal: Negative for myalgias. Skin: Negative for rash. Neurological: Negative for speech difficulty. Psychiatric/Behavioral: Negative for agitation. OBJECTIVE: Vitals: Blood pressure 129/54, pulse 74, temperature 36.7 ??C (98 ??F), resp. rate 18, height 1.753 m, weight 117.4 kg, SpO2 95 %. Max Blood Pressure: Systolic (24hrs), Av , Min:102 , Max:147 Diastolic (24hrs), Av, Min:38, Max:80 Physical Exam: General: NAD lying comfortably in bed, not in distress Eyes: conjunctivae sclerae clear HENT: NC/AT Neck: supple, +JVD, no bruit Lungs: Wheezes throughout bilaterally, without rales or rhonchi. Good air movement. Heart: RRR, normal S1, S2, systolic murmur, no gallops, or rubs. Abdomen: soft, nontender, nondistended, + bowel sounds, no organomegally, or masses Neuro: Alert, oriented X3, no focal neurological signs, moving all 4 extremities, Extremities: 2+ pitting edema in LE Skin: warm, no pallor, no cyanosis, no rashes, no ecchymoses Psych: normal affect Patient Data: I/O's: Intake/Output Summary (Last 24 hours) at 01/13/2023 1148 Last data filed at 01/13/2023 1000 Gross per 24 hour Intake 160 ml Output 3025 ml Net -2865 ml Weight change: 1.633 kg Height/Weight: Admission:Weight: 121.7 kg Today's: Weight: 117.4 kg BMI: Body mass index is 38.22 kg/m??. Current Medications: acetaminophen tablet, 1,000 mg, EVERY 8 HOURS aspirin, 81 mg, DAILY bisacodyL, 5 mg, DAILY cefTRIAXone, 1 g, Q24HR clopidogreL, 75 mg, DAILY escitalopram, 20 mg, DAILY fenofibrate, 145 mg, WITH BREAKFAST gabapentin, 100 mg, QHS hepARIN subcutaneous injection, 7,500 Units, Q8HR insulin lispro, , QID-WITH MEALS and BEDTIME methocarbamoL, 250 mg, QID pantoprazole, 40 mg, 0600 polyethylene glycol, 17 g, DAILY [Held by Provider] sevelamer carbonate, 0.8 g, TID-WITH MEALS sodium chloride, 3 mL, Q8HR spironolactone, 25 mg, DAILY tiotropium, 1 Capsule, RTDAILY [Held by Provider] traZODone, 100 mg, QPM bumetanide, Last Rate: 0.5 mg/hr (01/13/23 1100) albuterol HFA, 2 Puff, [id number] dextrose, 15 g, PRN dextrose 50% in water, 25 mL, PRN dextrose 50% in water, 50 mL, PRN iodixanoL, 10-100 mL, ONCE ondansetron, 4 mg, [id number] phenoL, 1 [place], PRN Lab Results: Recent Labs 01/11/23 0403 01/12/23 0309 01/13/23 0416 WBC 6.70 5.51 7.87 HEMOGLOBIN 9.2* 8.6* 8.8* HEMATOCRIT 29.0* 27.6* 28.8* NEUTROPHIL # 5.10 4.18 6.44 NEUTROPHIL % 77 76 81 MCV 97.3 95.2 97.0 PLATELET 89* 88* 108* Recent Labs 01/11/23 0403 01/11/23 0819 01/12/23 0309 01/12/23 0745 01/13/23 0416 01/13/23 0748 01/13/23 1106 SODIUM 133* 133* 132* POTASSIUM 4.4 3.6 3.7 CHLORIDE 95* 93* 93* GLUCOSE POCT < > < > 99 129* GLUCOSE 101 98 94 BUN 96* 102* 103* CREATININE 2.10* 1.90* 1.94* < > = values in this interval not displayed. Recent Labs 01/11/23 0403 01/12/23 0309 01/13/23 0416 MAGNESIUM 2.2 1.9 1.7 Recent Labs 01/11/23 0403 01/12/23 0309 01/13/23 0416 PHOSPHORUS 3.5 3.4 3.5 Diagnostics (Reviewed): XRAY CHEST 1 VIEW Result Date: 01/12/2023 IMPRESSION: Interval left-sided 3-lead pacer, no pneumothorax. Similar right suprahilar and left basilar pulmonary opacities with small bilateral pleural effusions. Reading Doctor: Miller Mills Electronic Signature by: Miller Mills XRAY CHEST 1 VIEW Result Date: 01/10/2023 IMPRESSION: No pneumothorax. Persistent bilateral upper lobe opacities. Improved pulmonary edema. Reading Doctor: Hugh Salcido Electronic Signature by: Hugh Salcido XRAY CHEST 1 VIEW Result Date: 01/09/2023 IMPRESSION: Kinking of right IJ venous sheath. Persistent bilateral pulmonary opacities. Reading Doctor: Hugh Salcido Electronic Signature by: Hugh Salcido XRAY CHEST 1 VIEW Result Date: 01/08/2023 IMPRESSION: Increase in density in right upper lobe airspace opacity and to a slight degree left upper lobe as well. These are concerning for pneumonitis versus asymmetric pulmonary edema. Cardiomegaly and small pleural effusions bilaterally. Reading Doctor: Jr Grider Electronic Signature by: Jr Grider ECHO Result Date: 01/10/2023 Reason for Exam: Aortic Valve Replacement Date of Service: 01/09/2023 Patient Height 175.0 cm Patient Weight 125.0 kg Systolic Pressure 148 mmHg Diastolic Pressure 51 mmHg Study Location ECH BSA 2.4 m^2 Procedure: A complete two- dimensional transthoracic echocardiogram was performed (2D, M-mode, spectral and color flow Doppler). Study Quality: Technically adequate. A contrast injection of Definity was performed to improve assessment of LV function. Left Ventricle: The left ventricle is mildly dilated. There is normal left ventricular wall thickness. LVEDD 5.9 cm. Ejection Fraction = 40-45%. Abnormal (paradoxical) septal motion consistent with LBBB. Mild to moderate global hypokinesis. Inferi or and lateral vega move best. There is no thrombus. LV diastolic function can not be accurately assessed. Left Atrium: The left atrium is mildly dilated. Right Atrium: Right atrial size is normal. Right Ventricle: The right ventricle is normal in size and function. Aortic Valve: The peak aortic valve velocity 307 cm/s. Aortic mean pressure gradient= 18 mmHg. VTI ratio 0.39. No paravalvular leak. S/p [id number] TAVR with 26 mm Evolut FX (within 25 mm Magna, post dilated with 23 mm True balloon) on 01/08/23. Well-seated, normally functioning aortic prosthesis. Mitral Valve: The mitral valve is normal in structure and function. There is mild mitral regurgitation. Tricuspid Valve: Structurally normal tricuspid valve. There was insufficient TR detected to calculate RV systolic pressure. Pulmonic Valve: The Pulmonic Valve is partially seen. Mild pulmonic valvular regurgitation. Arteries:The aortic root is normal size. Venous: Systolic blunting was observed in the RUPV spectral Dopplerflow pattern. The inferior vena cava is normal in size, with a normal collapsibility index. Pericardium/Pleura: There is no pericardial effusion. MMode 2D Measurements & Calculations IVSd - 1.1 cm LVIDd - 5.9 cm LVIDs - 4.1 cm LVPWd - 1.5 cm IVS/LVPW - 0.7 FS - 31.4 % EDV(Teich) - 176.1 ml ESV(Teich) - 73.3 ml EF(Teich) - 58.4 % EF (est.) - 44.4 % EDV(cubed) - 209.9 ml ESV(cubed) - 67.8 ml EF(cubed) - 67.7 % LV mass(C)d - 341.4 grams LV mass(C)dI - 144.4 grams/m^2 SV(Teich) - 102.8 ml SI(Teich) - 43.5 ml/m^2 SV(cubed) - 142.1 ml SI(cubed) - 60.1 ml/m^2 Ao root diam - 2.7 cm Ao root area -5.6 cm^2 LA dimension - 4.7 cm LA/Ao - 1.8 LVOT diam - 2.4 cm LVOT area - 4.4 cm^2 LVOT area(traced) - 4.5 cm^2 LVLd ap4 - 10 cm EDV(MOD-sp4) - 187 ml LVLs ap4 - 9.6 cm ESV(MOD-sp4) - 106 ml EF(MOD-sp4) - 43.3 % LVLd ap2 - 9.7 cm EDV(MOD-sp2) - 154 ml LVLs ap2 - 8.6 cm ESV(MOD-sp2) - 76 ml EF(MOD-sp2) - 50.6 % SV(MOD-sp4) - 81 ml SI(MOD-sp4) - 34.3 ml/m^2 SV(MOD-sp2) - 78 ml SI(MOD-sp2) - 33 ml/m^2 Doppler Measurements & Calculations MV E max bee - 121 cm/sec MV A max bee - 113 cm/sec MV E/A - 1.1 MV dec time - 0.26 sec Ao V2 max - 293.1 cm/sec Ao max PG - 34.4 mmHg Ao max PG (full) - 28.5 mmHg Ao V2 mean - 187.7 cm/sec Ao mean PG - 16.9 mmHg Ao mean PG (full) - 13.8 mmHg Ao V2 VTI - 59.8 cm CHELITA(I,A) - 1.8 cm^2 CHELITA(I,D) - 1.8 cm^2 CHELITA(V,A) - 1.8 cm^2 CHELITA(V,D) - 1.8 cm^2 LVOT max gradient - 5.9 mmHg LV V1 mean PG - 3 mmHg LVOT max bee - 121.3 cm/sec LV V1 mean - 79.8 cm/sec LV V1 VTI- 25 cm SV(Ao) - 333 ml SI(Ao) - 140.8 ml/m^2 SV(LVOT) - 109.9 ml SI(LVOT) - 46.5 ml/m^2 PA V2 max - 173.7 cm/sec PA max PG - 12.1 mmHg Conclusion The left ventricle is mildly dilated. Ejection Fraction = 40-45%. Abnormal (paradoxical) septal motion consistent with LBBB. The right ventricle is normal in size and function. The left atrium is mildly dilated. S/p [id number] TAVR with 26 mm Evolut FX (within 25 mm Magna, post dilated with 23 mm True balloon) on 01/08/23. Well-seated, normally functioning aortic prosthesis. No paravalvular leak. The peak aortic valve velocity 3.1 m/s. Aortic mean pressure gradient= 18 mmHg. VTI ratio 0.39. There is mild mitral regurgitation. InterpretingPhysician:Interpreting Physician: Timothy Monroe, electronically signed on 2023-01-10 16:37:24.54 ECHO Result Date: 12/28/2022 Reason for Exam: Chest Pain Date of Service: 12/28/2022 Interpretation Summary There is no comparison study available. Patient Height 175.0 cm Patient Weight 127.0 kg Systolic Pressure 132 mmHg Diastolic Pressure 53 mmHg Study Location E[facility] BSA 2.4 m^2 Procedure: A complete two-dimensional transthoracic echocardiogram was performed (2D, M-mode, spectral and color flow Doppler). Study Quality: Fair. The study was technically difficult with many images being suboptimal in quality. A contrast injection of Definity was performed to improve assessment of LV function. Left Ventricle: The left ventricular mass index is increased. There is mild concentric left ventricular hypertrophy. LVEDV 299 ml with BSA 2.4 m2 The ejection fraction measured by 2D BP MOD is41%. The LV ejection fraction is severely decreased. Akinesis of the apex and periapical segments, anteroseptum with better motion of the LV base representing, until proven otherwise, LAD territory issues on a background of moderate aortic stenosis. There is no thrombus. LV diastolic function can not be accurately assessed. E/E' averaged>13 Left Atrium: The left atrial volume is mildly increased. Right Atrium: Right atrial size is normal. Right Ventricle: The right ventricular systolic function is normal. Aortic Valve: Focal calcification. The aortic valve is not well visualized. The peak aortic valve velocity 385 cm/s. Aortic mean pressure gradient= 32 mmHg. The aortic valve velocity ratio was calculated at 0.27. Mitral Valve: Both leaflets are pliable and mobile. There is trace mitral regurgitation. Tricuspid Valve: The tricuspid valve is not well visualized. There was insufficient TR detected to calculate RV systolic pr essure. Pulmonic Valve: The pulmonic valve is not well visualized. Trace pulmonic valvular regurgitation. Arteries: The aortic root is normal size. There is aortic root sclerosis/calcification. Aortic arch not seen well. Venous: Severely dilated inferior vena cava. Pericardium/Pleura: There is no pericardial effusion. MMode 2D Measurements & Calculations IVSd - 1.2 cm LVIDd - 5.9 cm LVIDs - 4.7 cm LVPWd - 1.1 cm IVS/LVPW - 1.1 FS - 20.9 % EDV(Teich) - 172.5 ml ESV(Teich) - 100.2 ml EF(Teich) - 41.9 % EF (est.) - 41.1 % EDV(cubed) - 204.3 ml ESV(cubed) - 101 ml EF(cubed) - 50.6 % LV mass(C)d - 277.7 grams LV mass(C)dI - 116.6 grams/m^2 SV(Teich) - 72.4 ml SI(Teich) - 30.4 ml/m^2 SV(cubed) - 103.3 ml SI(cubed) - 43.4 ml/m^2 Ao root diam - 3.4 cm Ao root area - 9.3 cm^2 LA dimension - 4.7 cm LA/Ao - 1.4 LVLd ap4 - 11.6 cm EDV(MOD-sp4) - 289 ml LVLs ap4 - 10.1 cm ESV(MOD-sp4) - 176 ml EF(MOD-sp4) - 39.1 % LVLd ap2 - 11.3 cm EDV(MOD- sp2) - 302 ml LVLs ap2 - 10.1 cm ESV(MOD-sp2) - 176 ml EF(MOD-sp2) - 41.7 % SV(MOD-sp4) - 113 ml SI(MOD-sp4) - 47.5 ml/m^2 SV(MOD-sp2) - 126 ml SI(MOD-sp2) - 52.9 ml/m^2 Doppler Measurements & Calculations MV E max bee - 93.3 cm/sec MV A max bee - 113.7 cm/sec MV E/A - 0.82 MV dec time - 0.17 sec Ao V2 max - 330.8 cm/sec Ao max PG - 46.5 mmHg Ao max PG (full) - 42.4 mmHg Ao V2 mean - 223.4 cm/sec Ao mean PG - 24.8 mmHg Ao mean PG (full) - 22.8 mmHg Ao V2 VTI - 64.6 cm LVOT max gradient - 4.2 mmHg LV V1 mean PG - 2 mmHg LVOT max bee - 101.7 cm/sec LV V1 mean - 68.2 cm/sec LV V1 VTI - 20.4 cm SV(Ao) - 600 ml SI(Ao) - 252 ml/m^2 PA V2 max - 121.7 cm/sec PA max PG - 5.9 mmHg Conclusion The study was technically difficult with many images beingsuboptimal in quality. The left ventricular mass index is increased. E/E' averaged >13 The ejection fraction measured by 2D BP MOD is41%. Akinesis of the apex and periapical segments, anteroseptumwith better motion of the LV base representing, until proven otherwise, LAD territory issues on a background of moderate aortic stenosis. InterpretingPhysician:Interpreting Physician: Papi Delcid, electronically signed on 2022-12-28 16:16:52.52 EKG: Paced rhythm, stable from previous EKG. Electronically signed by: Miller Cooper MD PGY-1, Internal Medicine Pager #[phone] Cortext Preferred Associated attestation - Tariq Carl MD - 01/13/2023 12:02 PM EDT Cardiology Attending / Cardiac Electrophysiology Attending Note: I reviewed the notes and examined the patient with Dr. Cooper on 01/13/2023. I discussed the case with Dr. Cooper and agree with the examination, findings, and plans of care as documented in the resident's note. S/p TAVR and MARINE TECHNICIAN-P slowly recovering, gaining strength. Lucid and conversant today but slow. Continue present regimen. Electronically signed by Tariq Carl MD 01/13/2023 12:02 PM Hugo Carl MD [facility] Clinical Stunner Animal of Cardiology [facility] * Casi Norton RN - 01/12/2023 2:32 PM EDT Pt transported via bed on the monitor by RN to EP lab. Bedside timeout completed. Pt denies pain orneeds. VSS at transport. Bruno intact. Bumex gtt infusing per MAR. Will await return to [facility]. * Williams Murray DO - 01/12/2023 9:06 AM EDT Cardiology Progress Note Williams Murray DO [employer] Preferred After hours physician assistance: Page Internal Recruiter at pager [phone] or senior at pager [phone] 01/12/2023 Admit Date: 12/28/2022 Length of Stay: 15 days Raghu Rosenthal, 77yrs old, Male Primary Care Provider:Williams Yip MD SUBJECTIVE: No acute events overnight. Pt seems confused this morning. He dos not know where he is and he is having difficulty verbalizing with me, he moans like he is in pain but unable to tell me what hurts. Per nurse, his says he has been like that after waking up in the morning the last couple days. Nurse's Report: none yet OBJECTIVE: Telemetry: Results for orders placed or performed during the hospital encounter of 12/28/22 (from the past 72 hour(s)) EKG 12 LEAD Collection Time: 01/10/23 12:35 AM Test Value Low-High EKG Text INTERFACED DOCUMENTS - [facility] - ABNORMAL ECG - Sinus bradycardia rate<60 Ventricular premature complex V complex w/ short R-R interval Prolonged OR interval OR >220, V-rate 50-90 Left bundle branch block QRSd>, broad/notched R Prolonged QT interval QTc >500mS When compared with ECG of 09-Jan-2023 0:10:13, Significant change in rhythm Significant repolarization change Reading Physician Howard&Denisse Heart Rate 56 P-R Interval 226 P [place] 64 QRS Duration 136 QT Internal 680 QTcB 657 QRS [place] 6 I-40 [place] 43 T-40 [place] -30 T Wave [place] [address] [place] 207 EKG 12 LEAD Collection Time: 01/10/23 11:30 AM Test Value Low-High EKG Text INTERFACED DOCUMENTS - [facility] - ABNORMAL ECG - Sinus bradycardia rate<60 Left bundle branch block QRSd>, broad/notched R ST elevation secondary to IVCD Multiple VCG criteria Abnormal T, consider ischemia, lateral leads T <-0.20mV, I aVL V5 V6 Prolonged QT interval QTc >500mS When compared with ECG of 10-Jan-2023 0:35:31, No significant change Reading Physician Mickey Heart Rate 57 P-R Interval 212 P [place] 65 QRS Duration 132 QT Internal 674 QTcB 655 QRS [place] 38 I-40 [place] 77 T-40 [place] 1 T [address] [place] [address] [place] 204 Scheduled Meds: acetaminophen tablet, 1,000 mg, EVERY 8 HOURS aspirin, 81 mg, DAILY atropine, 1 mg, ONCE bisacodyL, 5 mg, DAILY cefTRIAXone, 1 g, Q24HR clopidogreL, 75 mg, DAILY escitalopram, 20 mg, DAILY fenofibrate, 145 mg, WITH BREAKFAST gabapentin, 100 mg, QHS [Held by Provider] hepARIN subcutaneous injection, 7,500 Units, Q8HR insulin lispro, , QID-WITH MEALS and BEDTIME methocarbamoL, 250 mg, QID pantoprazole, 40 mg, 0600 polyethylene glycol, 17 g, DAILY [Held by Provider] sevelamer carbonate, 0.8 g, TID-WITH MEALS sodium chloride, 3 mL, Q8HR spironolactone, 25 mg, DAILY tiotropium, 1 Capsule, RTDAILY [Held by Provider] traZODone, 100 mg, QPM vancomycin, 2,000 mg, ONCE Current Continuous IV FLUIDS or Drips: bumetanide, Last Rate: 1 mg/hr (01/12/23 1251) Intake/Output Summary (Last 24 hours) at 01/12/2023 1700 Last data filed at 01/12/2023 1400 Gross per 24 hour Intake 400 ml Output 2975 ml Net -2575 ml Stools:No data found. FSBS: No data found. Recent Labs 01/12/23 1253 GLUCOSE POCT 107* Today's Weight: 115.8 kg Admission Weight: 121.7 kg Body mass index is 37.68 kg/m??. Patient Vitals for the past 6 hrs: BP Temp Pulse Resp SpO2 01/12/23 1700 130/54 -- 70 15 95 % 01/12/23 1655 108/53 -- 70 16 97 % 01/12/23 1650 125/56 -- 70 15 98 % 01/12/23 1645 135/60 -- 70 17 98 % 01/12/23 1640 130/64 -- 70 15 99 % 01/12/23 1635 131/50 -- 90 20 98 % 01/12/23 1630 129/50 -- 64 20 98 % 01/12/23 1625 130/50 -- 60 21 100 % 01/12/23 1620 131/53 -- 62 17 99 % 01/12/23 1615 121/50 -- 63 19 98 % 01/12/23 1610 126/52 -- 63 15 98 % 01/12/23 1605 132/55 -- 63 19 98 % 01/12/23 1600 133/52 -- 91 15 99 % 01/12/23 1555 130/51 -- 60 15 99 % 01/12/23 1550 129/58 -- 60 15 99 % 01/12/23 1545 133/55 -- 60 13 99 % 01/12/23 1540 124/54 -- 60 21 98 % 01/12/23 1535 114/80 -- 60 17 98 % 01/12/23 1530 124/56 -- 60 (!) 24 99 % 01/12/23 1525 (!) 127/49 -- 67 18 97 % 01/12/23 1520 114/55 -- 60 (!) 30 98 % 01/12/23 1515 (!) 129/47 -- 56 (!) 29 97 % 01/12/23 1510 (!) 141/43 -- 66 (!) 26 95 % 01/12/23 1505 126/50 -- 74 (!) 28 95 % 01/12/23 1500 144/56 -- 71 13 94 % 01/12/23 1455 (!) 147/46 -- 55 20 93 % 01/12/23 1450 140/56 -- 61 13 95 % 01/12/23 1427 (!) 130/48 -- 61 -- 95 % 01/12/23 1251 -- 36.6 ??C (97.9 ??F) 53 18 97 % Physical Exam: GEN: Patient is resting comfortably, but confused. Neck: Neck is of normal size, neck is supple, no thyromegaly or masses appreciated; no lymph nodes palpated; no focal tenderness; no JVD or bruits RESP: CTAB, no increase work breathing, no wheezes/rales/rhonchi CVS: RRR, normal S1/S2, no murmurs. No rubs/gallops Extremities: no clubbing/cyanosis/ trace pitting edema, 2+ distal pulses (radial & pedal) bilaterally NEURO: AAOx3, no focal deficits appreciated on exam. DERM: intact; no lesions or rashes appreciated Psych: confused and not oriented to place or time. Labs reviewed by me include: Chemistry: Recent Labs 01/10/23 0311 01/10/23 0741 01/10/23 1611 01/10/23 1749 01/10/23 2241 01/11/23 0402 01/11/23 0403 01/11/23 0819 01/12/23 0309 01/12/23 0745 01/12/23 1253 SODIUM 133* -- 133* -- -- -- 133* -- 133* -- -- POTASSIUM 4.5 -- 3.4* -- 4.2 -- 4.4 -- 3.6 -- -- CHLORIDE 96* -- 95* -- -- -- 95* -- 93* -- -- BICARBONATE 27 -- 29 -- -- -- 26 -- 28 -- -- GLUCOSE 98 103 < > 151* < > -- < > 101 < > 98 92 107* BUN 91* -- 97* -- -- -- 96* -- 102* -- -- CREATININE 2.10* -- 2.12* -- -- -- 2.10* -- 1.90* -- -- CALCIUM 8.1* -- 8.5 -- -- -- 8.5 -- 8.9 -- -- PHOSPHORUS 3.7 -- -- -- -- -- 3.5 -- 3.4 -- -- MAGNESIUM 2.7* -- -- -- 2.2 -- 2.2 -- 1.9 -- -- < > = values in this interval not displayed. Hematology: Recent Labs 01/10/23 0311 01/11/23 0403 01/12/23 0309 WBC 7.22 6.70 5.51 HGB 8.2* 9.2* 8.6* MCV 97.0 97.3 95.2 PLATELET 90* 89* 88* Radiology reviewed by me include: No results found for this or any previous visit (from the past 36 hour(s)). ASSESSMENT/PLAN: Raghu Rosenthal is a 77yrs old Male with PMH of CAD s/p CABG x2 in [place] 10 years ago, HTN, HLD, porcine AVR who initially presented to [place] ED with complaints of SOB and midchest pressure. Transferred to [facility] in cardiogenic shock and admitted to CICU. After a brief floor stay pt was transferredback to the CICU. Valve in valve TAVR done 01/08/23. Now downgraded to CIU. 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 Given risk for CHB EP to consider pacemaker. - EP onboard for possible pacemaker today for bradycardia HFrEF TTE 01/09 40-45%. Patient initially presenting with cardiogenic shock and reduced EF on 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 years ago - Aldactone 25mg qd - Advance GDMT as tolerated - Bumex gtt - PT/OT Cardiogenic Shock - resolved NSTEMI New LBBB, chest pain. [facility] with Severe three-vessel disease with patent AVERY to LAD, intermediate stenosis in mid RCA, 60% distal left main stenosis. Culprit for his VA appears to be an occluded SVG to ramus graft. There is flow in the ramus with proximal 70% stenosis. - ASA 81mg qd - Plavix 75mg qd - Pt not tolerant of statins UTI U/A postive Leuk Est. And bacteria present and 4 WBC Patient acutely confused. Could be delirium vs infectious eitology. Will treat UTI with abx and follow up cultures. Plan: - rocephin 1 g IV daily for 7 days - f/u urine cultures for sensitivities Acute Hypoxic Respiratory Failure - Wean O2 as tolerated FILIBERTO on CKD II Baseline creatinine 1.6. - Monitor - Renally dose meds - Avoid nephrotoxins HTN - Advance antihypertensives as tolerated HLD Pt does not tolerate statins. - Fenofibrate 145mg qam FEN: Fluids: none Electrolytes: Will replace to keep K >4, Phos >3, Mg >2 Nutrition: cardiac diet DVT Prophylaxis: sub q heparin Code Status: Full Code Dispo: optimize GDMT over the weekend with plan to DC early next week pending medical stability The above assessment and plan was discussed with the attending physician. Williams Murray DO [facility] Linen Supervisor Future Appointments Date Time Provider Department Center 02/13/2023 12:15 PM [facility] LAB [facility] 02/13/2023 12:30 PM [facility] CARDIO GRAPHICS 2 [facility]G [facility] 02/13/2023 1:15 PM [facility] [id number] [facility] 02/13/2023 1:30 PM Timothy Monroe MD [facility] Associated attestation - Abdoulaye Canales MD - 02/04/2023 7:46 PM EDT Cardiology Attending Note Patient Name: Raghu Rosenthal Gender: Male Age: 77yrs :1945 MR #: [id number] MEG #:[id number] Attending Provider: No att. providers found I saw and evaluated Raghu Rosenthal, a 77yrs-year old Male with cardiology inpatient resident/consult/CICU team on 01/12/2023 and agree with the facts as documented in the note. Please refer to my addendum to H&P. Electronically signed by: Abdoulaye Canales MD, [facility] Parking Line Painter of Cardiology [facility] * Alissa Loja RN - 01/12/2023 7:13 AM EDT End shift Summary Assumed pt care, pt alert and oriented with confusions at times. Turn q2. Pt wears C-pap at night he only wears it from 2300 to 0300. Pt on Bumex gtt at 1mg/hr as ordered. O2 sat stable at 2lnc. Bruno cath patent draining clear yellow urine. VSS. SB on tele monitor. Safety precautions in place. Atropine IV (not to administer at this time) and pacer pads at the bedside as ordered by belt line feeder. Report given to [facility] day shift RN. * Jay Leblanc RN - 01/11/2023 6:09 PM EDT Patient transferred from CICU, on arrival Vital Signs WNL, on 2L Oxygen Via NC, In Sinus Kenneth HR 56, Bruno present, on Bumex infusion. * Karen Acosta RN - 01/11/2023 5:10 PM EDT Pt transferred via chair to room [id number] on cardiac tech. Continues on Bumex gtt. Belongings packed and personal CPAP transported as well. * Miller Cooper MD - 01/11/2023 5:03 PM EDT Images from the original note were not included. [facility] - Cardiology Teaching Service Progress Note Service Pager (call #1, internal sales engineer) #[phone] Service Pager (call #2, senior) #[phone] PATIENT IDENTIFICATION: Patient Name: Raghu Rosenthal Age: 77yrs Sex: Male : 1945 MEG: [id number] Admit Date: 12/28/2022 1:45 PM Today's Date: 01/11/2023 Length of Stay: 14 days Admit Diagnosis: NSTEMI (non-ST elevated myocardial infarction) ([facility]) [I21.4] Primary Diagnosis: S/P TAVR (transcatheter aortic valve replacement) [facility] PCP: Williams Yip MD Primary Insurance: @[employer]@ Secondary Insurance: @[employer]@ HOSPITAL COURSE Raghu Rosenthal is a 77yrs Male with PMH of CAD s/p CABG x2 in [place] 10 years ago, HTN, HLD, porcine AVR who initially presented to [place] ED with complaints of SOB and midchest pressure. Patient lives in [place] with his , and is visiting [facility] for the next 3 months. He recently had [facility]. Following this procedure he had worsening SOB associated with fatigue, malaise and generalized weakness. EMS was called and he was brought to [place] ED. On arrival he was noted to be in mild respiratory distress and required bipap. WBC of 19. EKG without NUNO, troponin 1.197. CXR consistent with mild interstitial edema, and a small left pleural effusion. He was given nitro sublingual and morphine, and started on BID lovenox. He was admitted to the ICU at [place]. He was started on empiric vanc, cefepime for possible infection. He was hypotensive requiring levophed with a differential of cardiogenic vs septic shock. He had a repeat EKG done on 12/28 with a new LBBB. His troponin trended as high as 39. Given concerns for acute coronary syndrome, he was transferred to [facility] for further management. On arrival to CICU, patient is awake and alert. He is on low dose levophed. He is warm to the touchand appears well perfused. POCUS with EF visually estimated at 45%. Breathing comfortably on room air. He underwent a R/LHC 12/28/2022 showing severe three-vessel disease with patent AVERY to LAD, intermediate stenosis in mid RCA, 60% distal left main stenosis, culprit for his VA appears to be an occluded SVG to ramus graft. He was also noted to have severely degenerated bioprosthetic aortic valve, invasive gradients reviewed severely stenotic with mean gradient over 40 mmHg. He was transferred out to the [facility] cards service while workup for TAVR was done. He was transferred back to CICU on 01/04for optimization prior to TAVR. He underwent TAVR on 01/08. Transferred back to CICU on 01/10 for ongoing heart failure management. 01/10 Patient transferred back to CICU from CVICU post TAVR for ongoing decompensated heart failure.On arrival to CICU pt is awake and alert, hemodynamically stable. His only complaint is a sore throat. Denies chest pain or shortness of breath. On a bumex drip. 01/11 Transfer to CIU ASSESSMENT & PLAN: Raghu Rosenthal is a 77yrs old Male with PMH of CAD s/p CABG x2 in [place] 10 years ago, HTN, HLD, porcine AVR who initially presented to [place] ED with complaints of SOB and midchest pressure. Transferred to [facility] in cardiogenic shock and admitted to CICU. After a brief floor stay pt was transferredback to the CICU. Valve in valve TAVR done 01/08/23. Now downgraded to CIU. 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 Given risk for CHB EP to consider pacemaker. - EP onboard for possible pacemaker HFrEF TTE 01/09 40-45%. Patient initially presenting with cardiogenic shock and reduced EF on 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 years ago - Aldactone 25mg qd - Advance GDMT as tolerated - Bumex gtt - PT/OT Cardiogenic Shock - resolved NSTEMI New LBBB, chest pain. [facility] with Severe three-vessel disease with patent AVERY to LAD, intermediate stenosis in mid RCA, 60% distal left main stenosis. Culprit for his VA appears to be an occluded SVG to ramus graft. There is flow in the ramus with proximal 70% stenosis. - ASA 81mg qd - Plavix 75mg qd - Pt not tolerant of statins Acute Hypoxic Respiratory Failure - Wean O2 as tolerated FILIBERTO on CKD II Baseline creatinine 1.6. - Monitor - Renally dose meds - Avoid nephrotoxines HTN - Advance antihypertensives as tolerated HLD Pt does not tolerate statins. - Fenofibrate 145mg qam FEN: Fluids: none Electrolytes: Will replace to keep K >4, Phos >3, Mg >2 Nutrition: cardiac diet DVT Prophylaxis: heparin Dispo: CIU Code Status: Full Code The assessment and plan above was discussed with the attending physician, Abdoulaye Canales MD Interval Events (Previous 24-hrs): Per RN, no acute events overnight. SUBJECTIVE: Patient seen and examined at the bedside. Review of Systems: Review of Systems Constitutional: Negative for chills and fever. HENT: Negative for sore throat. Eyes: Negative for redness. Respiratory: Positive for shortness of breath. Cardiovascular: Positive for leg swelling. Negative for chest pain. Gastrointestinal: Negative for abdominal pain, diarrhea, nausea and vomiting. Genitourinary: Negative for dysuria. Musculoskeletal: Negative for myalgias. Skin: Negative for rash. Neurological: Negative for speech difficulty. Psychiatric/Behavioral: Negative for agitation. OBJECTIVE: Vitals: Blood pressure 140/51, pulse 52, temperature 36.6 ??C (97.8 ??F), resp. rate 18, height 1.753 m, weight 123.8 kg, SpO2 98 %. Max Blood Pressure: Systolic (24hrs), Av , Min:71 , Max:140 Diastolic (24hrs), Av, Min:38, Max:61 Physical Exam: General: NAD lying comfortably in bed, not in distress Eyes: conjunctivae sclerae clear, PERRL, EOMI HENT: Atraumatic, normocephalic, buccal mucosa, palate and tongue WNL Neck: supple, +JVD, no bruit Lungs: Equal air entry bilaterally, clear to auscultation, without rales or wheezes Heart: RRR, normal S1, S2, systolic murmur, no gallops, or rubs. Abdomen: soft, nontender, nondistended, + bowel sounds, no organomegally, or masses Neuro: Alert, oriented X3, no focal neurological signs, moving all 4 extremities, Extremities: 2+ pitting edema in LE Skin: warm, no pallor, no cyanosis, no rashes, no ecchymoses Psych: normal affect Patient Data: I/O's: Intake/Output Summary (Last 24 hours) at 01/11/2023 1728 Last data filed at 01/11/2023 1700 Gross per 24 hour Intake 2360 ml Output 3470 ml Net -1110 ml Weight change: Height/Weight: Admission:Weight: 121.7 kg Today's: Weight: 123.8 kg BMI: Body mass index is 40.29 kg/m??. Current Medications: acetaminophen tablet, 1,000 mg, EVERY 8 HOURS aspirin, 81 mg, DAILY bisacodyL, 5 mg, DAILY clopidogreL, 75 mg, DAILY escitalopram, 20 mg, DAILY fenofibrate, 145 mg, WITH BREAKFAST gabapentin, 100 mg, QHS hepARIN subcutaneous injection, 7,500 Units, Q8HR insulin lispro, , QID-WITH MEALS and BEDTIME methocarbamoL, 250 mg, QID pantoprazole, 40 mg, 0600 polyethylene glycol, 17 g, DAILY [Held by Provider] sevelamer carbonate, 0.8 g, TID-WITH MEALS sodium chloride, 3 mL, Q8HR spironolactone, 25 mg, DAILY tiotropium, 1 Capsule, RTDAILY [Held by Provider] traZODone, 100 mg, QPM bumetanide, Last Rate: 1 mg/hr (01/11/23 1700) albuterol HFA, 2 Puff, [id number] dextrose, 15 g, PRN dextrose 50% in water, 25 mL, PRN dextrose 50% in water, 50 mL, PRN ondansetron, 4 mg, [id number] phenoL, 1 [place], PRN Lab Results: Recent Labs 01/09/23 0219 01/10/23 0311 01/11/23 0403 WBC 12.69* 7.22 6.70 HEMOGLOBIN 8.4* 8.2* 9.2* HEMATOCRIT 26.9* 26.1* 29.0* NEUTROPHIL # 11.99* 5.73 5.10 NEUTROPHIL % 95 79 77 MCV 98.5 97.0 97.3 PLATELET 105* 90* 89* Recent Labs 01/10/23 0311 01/10/23 0741 01/10/23 1611 01/10/23 1749 01/10/23 22401/11/23 0402 01/11/23 0403 01/11/23 0819 01/11/23 1215 SODIUM 133* 133* 133* POTASSIUM 4.5 3.4* 4.2 4.4 CHLORIDE 96* 95* 95* GLUCOSE POCT 98 < > < > < > 111* 145* GLUCOSE 103 151* 101 BUN 91* 97* 96* CREATININE 2.10* 2.12* 2.10* < > = values in this interval not displayed. Recent Labs 01/10/23 0311 01/10/23 22401/11/23 0403 MAGNESIUM 2.7* 2.2 2.2 Recent Labs 01/09/23 2321 01/10/23 0311 01/11/23 0403 PHOSPHORUS 3.9 3.7 3.5 Diagnostics (Reviewed): XRAY CHEST 1 VIEW Result Date: 01/10/2023 IMPRESSION: No pneumothorax. Persistent bilateral upper lobe opacities. Improved pulmonary edema. Reading Doctor: Hugh Salcido Electronic Signature by: Hugh Salcido XRAY CHEST 1 VIEW Result Date: 01/09/2023 IMPRESSION: Kinking of right IJ venous sheath. Persistent bilateral pulmonary opacities. Reading Doctor: Hugh Salcido Electronic Signature by: Hugh Salcido XRAY CHEST 1 VIEW Result Date: 01/08/2023 IMPRESSION: Increase in density in right upper lobe airspace opacity and to a slight degree left upper lobe as well. These are concerning for pneumonitis versus asymmetric pulmonary edema. Cardiomegaly and small pleural effusions bilaterally. Reading Doctor: Jr Grider Electronic Signature by: Jr Grider ECHO Result Date: 01/10/2023 Reason for Exam: Aortic Valve Replacement Date of Service: 01/09/2023 Patient Height 175.0 cm Patient Weight 125.0 kg Systolic Pressure 148 mmHg Diastolic Pressure 51 mmHg Study Location [facility] BSA 2.4 m^2 Procedure: A complete two- dimensional transthoracic echocardiogram was performed (2D, M-mode, spectral and color flow Doppler). Study Quality: Technically adequate. A contrast injection of Definity was performed to improve assessment of LV function. Left Ventricle: The left ventricle is mildly dilated. There is normal left ventricular wall thickness. LVEDD 5.9 cm. Ejection Fraction = 40-45%. Abnormal (paradoxical) septal motion consistent with LBBB. Mild to moderate global hypokinesis. Inferi or and lateral vega move best. There is no thrombus. LV diastolic function can not be accurately assessed. Left Atrium: The left atrium is mildly dilated. Right Atrium: Right atrial size is normal. Right Ventricle: The right ventricle is normal in size and function. Aortic Valve: The peak aortic valve velocity 307 cm/s. Aortic mean pressure gradient= 18 mmHg. VTI ratio 0.39. No paravalvular leak. S/p [id number] TAVR with 26 mm Evolut FX (within 25 mm Magna, post dilated with 23 mm True balloon) on 01/08/23. Well-seated, normally functioning aortic prosthesis. Mitral Valve: The mitral valve is normal in structure and function. There is mild mitral regurgitation. Tricuspid Valve: Structurally normal tricuspid valve. There was insufficient TR detected to calculate RV systolic pressure. Pulmonic Valve: The Pulmonic Valve is partially seen. Mild pulmonic valvular regurgitation. Arteries:The aortic root is normal size. Venous: Systolic blunting was observed in the RUPV spectral Dopplerflow pattern. The inferior vena cava is normal in size, with a normal collapsibility index. Pericardium/Pleura: There is no pericardial effusion. MMode 2D Measurements & Calculations IVSd - 1.1 cm LVIDd - 5.9 cm LVIDs - 4.1 cm LVPWd - 1.5 cm IVS/LVPW - 0.7 FS - 31.4 % EDV(Teich) - 176.1 ml ESV(Teich) - 73.3 ml EF(Teich) - 58.4 % EF (est.) - 44.4 % EDV(cubed) - 209.9 ml ESV(cubed) - 67.8 ml EF(cubed) - 67.7 % LV mass(C)d - 341.4 grams LV mass(C)dI - 144.4 grams/m^2 SV(Teich) - 102.8 ml SI(Teich) - 43.5 ml/m^2 SV(cubed) - 142.1 ml SI(cubed) - 60.1 ml/m^2 Ao root diam - 2.7 cm Ao root area -5.6 cm^2 LA dimension - 4.7 cm LA/Ao - 1.8 LVOT diam - 2.4 cm LVOT area - 4.4 cm^2 LVOT area(traced) - 4.5 cm^2 LVLd ap4 - 10 cm EDV(MOD-sp4) - 187 ml LVLs ap4 - 9.6 cm ESV(MOD-sp4) - 106 ml EF(MOD-sp4) - 43.3 % LVLd ap2 - 9.7 cm EDV(MOD-sp2) - 154 ml LVLs ap2 - 8.6 cm ESV(MOD-sp2) - 76 ml EF(MOD-sp2) - 50.6 % SV(MOD-sp4) - 81 ml SI(MOD-sp4) - 34.3 ml/m^2 SV(MOD-sp2) - 78 ml SI(MOD-sp2) - 33 ml/m^2 Doppler Measurements & Calculations MV E max bee - 121 cm/sec MV A max bee - 113 cm/sec MV E/A - 1.1 MV dec time - 0.26 sec Ao V2 max - 293.1 cm/sec Ao max PG - 34.4 mmHg Ao max PG (full) - 28.5 mmHg Ao V2 mean - 187.7 cm/sec Ao mean PG - 16.9 mmHg Ao mean PG (full) - 13.8 mmHg Ao V2 VTI - 59.8 cm CHELITA(I,A) - 1.8 cm^2 CHELITA(I,D) - 1.8 cm^2 CHELITA(V,A) - 1.8 cm^2 CHELITA(V,D) - 1.8 cm^2 LVOT max gradient - 5.9 mmHg LV V1 mean PG - 3 mmHg LVOT max bee - 121.3 cm/sec LV V1 mean - 79.8 cm/sec LV V1 VTI- 25 cm SV(Ao) - 333 ml SI(Ao) - 140.8 ml/m^2 SV(LVOT) - 109.9 ml SI(LVOT) - 46.5 ml/m^2 PA V2 max - 173.7 cm/sec PA max PG - 12.1 mmHg Conclusion The left ventricle is mildly dilated. Ejection Fraction = 40-45%. Abnormal (paradoxical) septal motion consistent with LBBB. The right ventricle is normal in size and function. The left atrium is mildly dilated. S/p [id number] TAVR with 26 mm Evolut FX (within 25 mm Magna, post dilated with 23 mm True balloon) on 01/08/23. Well-seated, normally functioning aortic prosthesis. No paravalvular leak. The peak aortic valve velocity 3.1 m/s. Aortic mean pressure gradient= 18 mmHg. VTI ratio 0.39. There is mild mitral regurgitation. InterpretingPhysician:Interpreting Physician: Timothy Monroe, electronically signed on 2023-01-10 16:37:24.54 ECHO Result Date: 12/28/2022 Reason for Exam: Chest Pain Date of Service: 12/28/2022 Interpretation Summary There is no comparison study available. Patient Height 175.0 cm Patient Weight 127.0 kg Systolic Pressure 132 mmHg Diastolic Pressure 53 mmHg Study Location [facility] BSA 2.4 m^2 Procedure: A complete two-dimensional transthoracic echocardiogram was performed (2D, M-mode, spectral and color flow Doppler). Study Quality: Fair. The study was technically difficult with many images being suboptimal in quality. A contrast injection of Definity was performed to improve assessment of LV function. Left Ventricle: The left ventricular mass index is increased. There is mild concentric left ventricular hypertrophy. LVEDV 299 ml with BSA 2.4 m2 The ejection fraction measured by 2D BP MOD is41%. The LV ejection fraction is severely decreased. Akinesis of the apex and periapical segments, anteroseptum with better motion of the LV base representing, until proven otherwise, LAD territory issues on a background of moderate aortic stenosis. There is no thrombus. LV diastolic function can not be accurately assessed. E/E' averaged>13 Left Atrium: The left atrial volume is mildly increased. Right Atrium: Right atrial size is normal. Right Ventricle: The right ventricular systolic function is normal. Aortic Valve: Focal calcification. The aortic valve is not well visualized. The peak aortic valve velocity 385 cm/s. Aortic mean pressure gradient= 32 mmHg. The aortic valve velocity ratio was calculated at 0.27. Mitral Valve: Both leaflets are pliable and mobile. There is trace mitral regurgitation. Tricuspid Valve: The tricuspid valve is not well visualized. There was insufficient TR detected to calculate RV systolic pr essure. Pulmonic Valve: The pulmonic valve is not well visualized. Trace pulmonic valvular regurgitation. Arteries: The aortic root is normal size. There is aortic root sclerosis/calcification. Aortic arch not seen well. Venous: Severely dilated inferior vena cava. Pericardium/Pleura: There is no pericardial effusion. MMode 2D Measurements & Calculations IVSd - 1.2 cm LVIDd - 5.9 cm LVIDs - 4.7 cm LVPWd - 1.1 cm IVS/LVPW - 1.1 FS - 20.9 % EDV(Teich) - 172.5 ml ESV(Teich) - 100.2 ml EF(Teich) - 41.9 % EF (est.) - 41.1 % EDV(cubed) - 204.3 ml ESV(cubed) - 101 ml EF(cubed) - 50.6 % LV mass(C)d - 277.7 grams LV mass(C)dI - 116.6 grams/m^2 SV(Teich) - 72.4 ml SI(Teich) - 30.4 ml/m^2 SV(cubed) - 103.3 ml SI(cubed) - 43.4 ml/m^2 Ao root diam - 3.4 cm Ao root area - 9.3 cm^2 LA dimension - 4.7 cm LA/Ao - 1.4 LVLd ap4 - 11.6 cm EDV(MOD-sp4) - 289 ml LVLs ap4 - 10.1 cm ESV(MOD-sp4) - 176 ml EF(MOD-sp4) - 39.1 % LVLd ap2 - 11.3 cm EDV(MOD- sp2) - 302 ml LVLs ap2 - 10.1 cm ESV(MOD-sp2) - 176 ml EF(MOD-sp2) - 41.7 % SV(MOD-sp4) - 113 ml SI(MOD-sp4) - 47.5 ml/m^2 SV(MOD-sp2) - 126 ml SI(MOD-sp2) - 52.9 ml/m^2 Doppler Measurements & Calculations MV E max bee - 93.3 cm/sec MV A max bee - 113.7 cm/sec MV E/A - 0.82 MV dec time - 0.17 sec Ao V2 max - 330.8 cm/sec Ao max PG - 46.5 mmHg Ao max PG (full) - 42.4 mmHg Ao V2 mean - 223.4 cm/sec Ao mean PG - 24.8 mmHg Ao mean PG (full) - 22.8 mmHg Ao V2 VTI - 64.6 cm LVOT max gradient - 4.2 mmHg LV V1 mean PG - 2 mmHg LVOT max bee - 101.7 cm/sec LV V1 mean - 68.2 cm/sec LV V1 VTI - 20.4 cm SV(Ao) - 600 ml SI(Ao) - 252 ml/m^2 PA V2 max - 121.7 cm/sec PA max PG - 5.9 mmHg Conclusion The study was technically difficult with many images beingsuboptimal in quality. The left ventricular mass index is increased. E/E' averaged >13 The ejection fraction measured by 2D BP MOD is41%. Akinesis of the apex and periapical segments, anteroseptumwith better motion of the LV base representing, until proven otherwise, LAD territory issues on a background of moderate aortic stenosis. InterpretingPhysician:Interpreting Physician: Papi Delcid, electronically signed on 2022-12-28 16:16:52.52 EKG: None new Electronically signed by: Miller Cooper MD PGY-1, Internal Medicine Pager #[phone] Cortext Preferred Associated attestation - Abdoulaye Canales MD - 02/04/2023 7:43 PM EDT Cardiology Attending Note Patient Name: Raghu Rosenthal Gender: Male Age: 77yrs :1945 MR #: [id number] [facility] #:[id number] Attending Provider: No att. providers found I saw and evaluated Raghu Rosenthal, a 77yrs-year old Male with cardiology inpatient resident/consult/CICU team on 01/12/2023 and agree with the facts as documented in the note. 77-year-old male with CAD, CABG x2, AVR with a porcine valve, severe patient prosthetic mismatch underwent valve in valve TAVR on 01/08/2023. He was transferred to CICU from CVICU after TAVR for ongoing decompensated heart failure that was stabilized and subsequently transferred to intermediate unit. 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 The patient has a central line and will have a plan for removing that. Asthis may interfere with pacemaker implantation. Appreciate EP recommendations. Electronically signed by: Abdoulaye Canales MD, FAC, DARWIN [employer] Painter of Cardiology [facility] * Adán Romano NP - 01/11/2023 4:22 PM EDT Images from the original note were not included. [facility] Cardiology team updated, via Cortext about the transfer of patient Raghu Rosenthal to [facility]. Electronically signed by Adán Romano NP 01/11/2023 4:22 PM * Zac Estrada OTR/Jessica - 01/11/2023 4:12 PM EDT Images from the original note were not included. OCCUPATIONAL THERAPY DAILY NOTE-INPATIENT [facility] Patient Name: Raghu Rosenthal Date of Treatment: 01/11/2023 Date of : 1945 Age: 77yrs Date of admission: 12/28/2022 Attending Provider: Anam Winchester MD Start Time: 1529 End Time: 1611 Subjective: Pt states, I feel relaxed. Received semi-fowlers, at bedside. Pt agreeable to participate in OT session this date. Objective/Activities Addressed Today: OT General - 01/11/23 1612 PRECAUTIONS Precautions Bleeding;Cardiac;Falls Sitting Tolerance Surface Bed Level of assist Supervision No. of persons assisting 1 Arm Support Both Length of time mins. 10 No. of breaks 0 Techniques Energy Conservation Standing Tolerance Level of assist Min Assist No. of persons assisting 1 Arm Support Both Length of time mins. 10 No. of breaks 2 Techniques Energy Conservation Assistive Device Rolling Walker Supine to sit Level of Assist Mod Assist with increased time Assistive Device Hospital Bed;Siderail No. of person(s) assisting 2 # of Trials 1 Sit on Edge of Bed Level of Assist Supervision Length of time mins. 10 Arm Support Both No. of person(s) assisting 1 Scooting edge of bed Level of Assist Max Assist Assistive Device Hospital Bed No. of person(s) assisting 2 Direction Forward Sit to Stand Surface height 22 Level of Assist -- Max (A) x2 progressed to Mod (A) x2 Assistive Device Rolling Walker No. of person(s) assisting 2 # of Trials 3 Stand to sit Surface Height 22 Level of Assist Min Assist with moderate verbal cues for proper technique Assistive Device Rolling Walker No. of person(s) assisting 1 # of Trials 3 Transfer Safety Concerns Safety Concerns Yes Arm Chair Transfer Type of transfer Stand step Assistive device Rolling Walker Level of assist Min Assist No. of person(s) assisting 1 Reason for assist Facilitation;Safety;Proper Technique # of trials 3 Functional Household Distance Functional Distance 25 to 50 feet 5', 15', 15' Mode of Mobility Ambulation # Loss of Balance 0 Level of Assist Min Assist Assistive Device Rolling Walker # of Rest Breaks 2 seated rest breaks Lower Body Dressing Level of Assist Max Assist Underwear Level of Assist Maximal assist Sock Level of Assist Max Assist Sock Skill On;Off Performed From Edge of bed Sock Type Ankle/knee socks Endurance: Endurance during evaluation was Good for 42 minutes of activity. Pt on 2L NC and no SOB during session. Pre-Eval Vitals: Vital Signs BP: (!) 117/48 BP Mean: 71 MM HG Patient Position for VS: Sitting Upright Post-Eval Vitals: Vital Signs BP: 140/51 BP Mean: 80 MM HG Patient Position for VS: Sitting Upright Response to Treatment: Pt with good response to today's session. Upon arrival to room, Pt endorsed scrotum discomfort, including swelling/bruising; however discomfort improved with use of mesh underwear during functional mobility. Pt able to complete x3 sit <> stand transfers progressing from Max (A) x2 to Mod (A) x2 with RW. Pt able to ambulate 35' with RW and Min (A); requiring x2 seated rest breaks and moderate verbal cueing for sequencing and proper technique. Pt returned to sitting upright in chair, wheelslocked, call vasquez in reach; all needs met. RN aware. Pt continues to benefit from acute OT servicesto maximize independence in ADLs. Safety Promotion/Fall Prevention: activity supervised, gait belt, mobility aid in reach, nonskid shoes/slippers when out of bed AM-PAC Daily Activities Raw Score: 17 AM-PAC Daily Activities t-Score: 37.26 Education: See Patient Education Activity for details. Discharge Plan/Recommendations: Other OT DC Recommendations: Inpatient rehab Barriers to Discharge: Medical Acuity OT Services Recommended Post Discharge: Activities of daily living training, Instrumental activities of daily living training, Functional mobility training, Transfer training, Therapeutic exercise, Cognitive retraining DME Needed at Discharge: Defer to next level of care Physical Assist Required at DC for: Self care, Homemaking tasks, Bathroom transfers, Household mobility, Home safety/emergency responses Supervision Required at DC for: Adherence to precautions, Money/medication management Discharge Caregiver : Spouse Caregiver Availability : multimedia editor Physical assist caregiver able to provide: Significant JACK Peters/Jessica * Gary Patiño - 01/11/2023 4:11 PM EDT PHYSICAL THERAPY DAILY NOTE-[facility] Patient Name: Raghu Rosenthal Date of Treatment: 01/11/2023 Date of : 1945 Age: 77yrs Date of admission: 12/28/2022 Attending Provider: Abdoulaye Canales MD Start Time: Time In: 1529 End Time: Time Out: 1611 Subjective: Pt found sleeping in bed upon entry with at bedside. Agreeable to work with PT. Ptstates I just want to go home. Left in chair at end of session with all needs met. Vital Signs: BP Pulse SpO2 Position 01/11/23 1611 140/51 (80) 56 96 % Sitting upright 01/11/23 1529 (!) 123/47 (72) 54 96 % Semi-fowlers Pre-Tx Pain Score: 0 Post-Tx Pain Score: Pain Intensity Numbers Scale: 0 - No Pain Objective: Precautions Implemented Precautions Implemented: Falls, Cardiac Safety Call Vasquez: In Reach and Able to Use ID Band: Checked Chair: Wheels Locked, Alarm Off/Comment (Not on upon entry) Safety Promotion/Fall Prevention: activity supervised, assistive device/personal items within reach, fall prevention program maintained, gait belt, nonskid shoes/slippers when out of bed Compression Garment/Device Compression Garment / Device: Sequential Compression Device (SCD) - Off (Not on upon entry) Functional Activities Addressed Today: Scooting Level of Assist: Max Assist Assistive Device: Siderail, HOB elevated 30 degrees No. of person(s) assistin Reason for assist: Lower extremity managementLower extremity management, Initiation of movement # of trials: 2 Supine to Sit Level of Assist: Mod Assist Assistive Device: Siderail, HOB elevated 30 degrees No. of person(s) assistin Reason for assist: Safety, Physical support or lifting, Sequencing # of Trials: 1 Sit to Supine Level of Assist: Mod Assist Assistive Device: Siderail, HOB elevated 30 degrees No. of person(s) assistin Reason for assist: Safety, Physical support or lifting, Sequencing # of Trials: 1 Sit on Edge of Bed Level of Assist: Supervision Length of time mins.: 2 Arm Support: Both No. of person(s) assistin Sit to Stand Surface height: 20 Level of Assist: Max Assist (Max first trial, mod second and third trial) Assistive Device: Gait Belt, Rolling Walker No. of person(s) assistin Reason for assist: Physical support or lifting, Safety, Sequencing # of Trials: 3 Stand to Sit Surface Height: 20 Level of Assist: Mod Assist Assistive Device: Gait belt, Rolling Walker No. of person(s) assistin Reason for assist: Safety, Physical support or lifting, Sequencing # of Trials: 3 Standing Static Level of assist: Contact Guard Assistance Assistive device: Rolling Walker No. of person(s) assistin # losses of balance: 0 Time in mins.: 1 Surface: Floor Arm Chair Transfer Type of transfer: Stand step Level of assist: Mod Assist Assistive device: Gait belt, Rolling Walker No. of person(s) assistin Reason for assist: Safety, Physical support or lifting, Sequencing # of trials: 3 Ambulation Ambulation Level of assist: Contact Guard Assistance Assistive device: Gait belt, Rolling Walker No. of person(s) assistin Reasons for assist: Safety issues, Physical support # of trials: 3 Distance in feet: 5, 15, 15 Gait Deviations: Extremely shortened step length, downward gaze, slowed gait speed, increased distance from walker (Required significant cueing to elongate step length) Surfaces: Smooth, level Stair Climbing Up Steps Did not assess stairs up/down: due to limited strength/endurance AM-PAC SHORT FORMS TOOL BASIC MOBILITY Raghu Rosenthal exhibited the following: Basic Mobility Tasks Turning in bed without bedrails: 3- A Little Lying on back to sitting on edge of flat bed: 3- A Little Moving to and from a bed to a chair: 3- A Little Standing up from a chair: 2- A Lot To walk in hospital room: 3- A Little Climb 3-5 steps with a railin- A Lot Basic Mobility Scores AM-PAC Mobility Raw Score: 16 AM-PAC Mobility t-Score: 38.32 AM-PAC Mobility G-Code Modifier: CK Legend for Raw & T-Scale Score: Raw score of 6 (t-scale score of 16.59) indicates the patient is totally dependent on staff/family for mobility Raw score of 18 (t-scale score of 41.05) indicates the patient requires a little bit of help (minimal assistance) to move Raw score of 24 (t-scale score of 57.68) indicates the patient is functionally independent Response to Treatment: Patient continues to require skilled therapy to improve strength and endurance with physical activity. Pt wants to return home but will need improvement in order to do so. Required significant cueingduring standing, ambulation, and sitting for proper technique and safety. Pt is making some progress towards goals but would continue to benefit from acute PT services to address impairments. PT willcontinue to follow. Education: See Patient Education Activity for details. Discharge Plan/Recommendations: Post-Acute Therapy Needs: Gait training, Neuromuscular Re-education, Therapeutic Activities, Therapeutic Excercises Intensity/setting: high intensity, facility based Physical Assistance Required at This Time: All mobility Supervision Required at This Time: All mobility Expected Caregiver at DC from Hospital: Spouse Caregiver Availability : multimedia editor Caregiver/Physical Assistance available: Significant assistance available Equipment Needed at DC: Will be assessed at next level of care DIVYA Oconnell Associated attestation - Nidhi Humphrey PT - 01/12/2023 4:33 PM EDT This medical writer was present for direct supervision and assist of student and patient during treatment. I have reviewed and agree with documentation provided below. Thank you. Nidhi Humphrey, PT, DPT Cortext preferred method of communication. * Michael Yo ANP - 01/11/2023 11:16 AM EDT Images from the original note were not included. Cardiac Critical Care Progress Note JENIFFER Marie Date: 01/11/2023, 11:16 AM LOC:[id number] Raghu Rosenthal 1945 Hosp day:13 days Referring MD: Williams Yip MD CICU Day: # 2 Code Status: Full Code Chief Complaint: Severe Narrative/Overnight/ROS: (History and SOAP notes have been reviewed in the EMR) 01/11/2023 neg 1.6 litres on 1mg/hr bumex. Currently up in the chair, can pull 1000cc on incentive spirometer with encouragement. Only complaint is headache Hospital Course: Raghu Rosenthal is a 77yrs Male with PMH of CAD s/p CABG x2 in [place] 10 years ago, HTN, HLD, porcine AVR who initially presented to [place] ED with complaints of SOB and midchest pressure. Patient lives in [place] with his , and is visiting [facility] for the next 3 months. He recently had a [facility] by the [facility] on 12/27. Following this procedure he had worsening SOB associated with fatigue, malaise and generalized weakness. EMS was called and he was brought to [place] ED. On arrival he was noted to be in mild respiratory distress and required bipap. WBC of 19. EKG without NUNO, troponin 1.197. CXR consistent with mild interstitial edema, and a small left pleural effusion. He was given nitro sublingual and morphine, and started on BID lovenox. He was admitted to the ICU at [place]. He was started on empiric vanc, cefepime for possible infection. He was hypotensive requiring levophed with a differential of cardiogenic vs septic shock. He had a repeat EKG done on 12/28 with a new LBBB. His troponin trended as high as 39. Given concerns for acute coronary syndrome, he was transferred to [facility] for further management. On arrival to CICU, patient is awake and alert. He is on low dose levophed. He is warm to the touchand appears well perfused. POCUS with EF visually estimated at 45%. Breathing comfortably on room air. He underwent a R/LHC 12/28/2022 showing severe three-vessel disease with patent AVERY to LAD, intermediate stenosis in mid RCA, 60% distal left main stenosis, culprit for his VA appears to be an occluded SVG to ramus graft. He was also noted to have severely degenerated bioprosthetic aortic valve, invasive gradients reviewed severely stenotic with mean gradient over 40 mmHg. He was transferred out to the [facility] cards service while workup for TAVR was done. He was transferred back to CICU on 01/04for optimization prior to TAVR. He underwent TAVR on 01/08. Transferred back to CICU on 01/10 for ongoing heart failure management. 01/10 Patient transferred back to CICU from CVICU post TAVR for ongoing decompensated heart failure.On arrival to CICU pt is awake and alert, hemodynamically stable. His only complaint is a sore throat. Denies chest pain or shortness of breath. On a bumex drip. Active Hospital Problems: Active Hospital Problems Diagnosis *01/08/23 TransCatheter Aortic Valve Replacement (Gtznc-rl-[id number], 26 Medtronic Evolut Pro, via the Left Transfemoral Approach) EF 35% CKD (chronic kidney disease) stage 3, GFR 30-59 ml/min ([facility]) FILIBERTO (acute kidney injury) ([facility]) Pulmonary edema Cardiogenic shock ([facility]) Acute on chronic HFrEF (heart failure with reduced ejection fraction) ([facility]) NSTEMI (non-ST elevated myocardial infarction) ([facility]) Hypertension Hyperlipidemia Coronary artery disease Problem List: Decompensated HFrEF Assessment: ECHO with EF 41%. 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 years ago Plan: Bumex drip, keep at current rate to try to pull to net neg 2 litres Holding BB, SHERMAN for now Spironolactone Can transfer out of ICU PT. Bronchial hygiene NSTEMI, Coronary Artery Disease Assessment: Presented with new LBBB, chest pain. [facility] with Severe three-vessel disease with patent AVERY to LAD, intermediate stenosis in mid RCA, 60% distal left main stenosis. Culprit for his VA appears to be an occluded SVG to ramus graft. There is flow in the ramus with proximal 70% stenosis. Plan: Aspirin, plavix Tricor Holding BB, SHERMAN until hemodynamics allow Severe Aortic Stenosis s/p TAVR, Degenerated Bioprosthetic Aortic Valve Assessment: TAVR with Dr Hartley on 01/08. Plan: Aspirin, plavix Holding BB in post TAVR patient given risk for CHB FILIBERTO on CKD II Assessment: Baseline creatinine 1.6, steadily increasing in the setting of shock. 01/11/2023: Creatinine 2.10 mg/dL (H) Plan: Bumex drip Strict I/O Monitor on BMP Avoid nephrotoxic drugs best we can Hypertension Assessment: Chronic Plan: Holding antihypertensives until hemodynamics allow Hyperlipidemia Assessment: Chronic Plan: holding statin due to intolerance fenofibrate Chronic back pain - multimodal pain regimen, expires in a couple of days. Oxy 5 for pain not controlled by scheduled meds CICU Daily Rounding Checklist 1. Lines/Tubes/Drains -Bruno: no -CVC: no -Art line: no -Other: N/a 2. SBT/SAT: N/A 3. Nutrition Status: Nutrition Therapy 4. Glycemic Control: -101 mg/dL (01/113) -12/28/2022: Hemoglobin A1C 5.0 % -N/A 5. Mobility Status - GEMS: Mobility Level 3- Standing activities with assist - PT/OT:no 6. DVT Prophylaxis: Heparin 7. PUD Prophylaxis: N/A 8. CAM ICU Score: Delirium Assessment CAM-ICU Acute Change or Fluctuating Course of Mental Status: No Inattention: 0 - 2 Errors Altered Level of Consciousness: RASS other than Zero Disorganized Thinkin - 1 Error CAM-ICU Score: Negative -Interventions N/A 9. Current antibiotics: None Most Recent Restraint Order (From admission, onward) None Medications: SCHEDULED MEDICATIONS acetaminophen tablet, 1,000 mg, EVERY 8 HOURS aspirin, 81 mg, DAILY bisacodyL, 5 mg, DAILY clopidogreL, 75 mg, DAILY docusate sodium, 100 mg, BID escitalopram, 20 mg, DAILY fenofibrate, 145 mg, WITH BREAKFAST gabapentin, 100 mg, QHS hepARIN subcutaneous injection, 7,500 Units, Q8HR insulin lispro, , FIVE TIMES A DAY INSULIN methocarbamoL, 250 mg, QID pantoprazole, 40 mg, 0600 polyethylene glycol, 17 g, DAILY [Held by Provider] sevelamer carbonate, 0.8 g, TID-WITH MEALS spironolactone, 25 mg, DAILY tiotropium, 1 Capsule, RTDAILY [Held by Provider] traZODone, 100 mg, QPM bumetanide, Last Rate: 1 mg/hr (01/11/23 0800) PRN Inpatient Medications: albuterol HFA, 2 Puff, [id number] ondansetron, 4 mg, [id number] phenoL, 1 [place], PRN Echo : Result Date: 01/10/2023 Conclusion The left ventricle is mildly dilated. Ejection Fraction = 40-45%. Abnormal (paradoxical)septal motion consistent with LBBB. The right ventricle is normal in size and function. The left atrium is mildly dilated. S/p [id number] TAVR with 26 mm Evolut FX (within 25 mm Magna, post dilated with 23 mm True balloon) on 01/08/23. Well-seated, normally functioning aortic prosthesis. No paravalvular leak. The peak aortic valve velocity 3.1 m/s. Aortic mean pressure gradient= 18 mmHg. VTI ratio 0.39. There is mild mitral regurgitation. InterpretingPhysician:Interpreting Physician: Timothy Monroe, electronically signed on 2023-01-10 16:37:24.54 Result Date: 12/28/2022 Conclusion The study was technically difficult with many images being suboptimal in quality. The left ventricular mass index is increased. E/E' averaged >13 The ejection fraction measured by 2D BPMOD is41%. Akinesis of the apex and periapical segments, anteroseptum with better motion of the LV base representing, until proven otherwise, LAD territory issues on a background of moderate aortic stenosis. InterpretingPhysician:Interpreting Physician: Papi Delcid, electronically signed on 2022-12-28 16:16:52.52 Physical Examination: VItals: BP (!) 105/45 Pulse (!) 49 Temp 36.5 ??C (97.7 ??F) Resp 18 Ht 1.753 m Wt 123.8 kg [id number]% BMI 40.29 kg/m?? Temp (24hrs), Av.6 ??C (97.8 ??F), Min:36.3 ??C (97.4 ??F), Max:37.1 ??C(98.8 ??F) Admit Weight: 121.7 kgCurrent Weight: 122.6 kg BMI: 39.896 Ventilation: Resp: 18 SpO2: 98 % O2 Mode: Nasal Cannula Or Prongs, With Humidification O2 Frequency: Continuous Telemetry: NSR Intake/Output Summary (Last 24 hours) at 01/11/2023 1116 Last data filed at 01/11/2023 0800 Gross per 24 hour Intake 1490 ml Output 3450 ml Net -1960 ml Body mass index is 40.29 kg/m??. Constitutional: alert, oriented times four and well nourished, well developed, and in no distress HENT: normocephalic, atraumatic, + JVD, no carotid bruits, trachea midline and normal to palpitation EYES: Both eyes: conjunctivae and sclerae clear, pupils equal, round, reactive to light and accommodation, EOM's intact CV: S1 and S2 normal, 4/6 sys murmur LLSB and RUSB, no gallops, no extra heart sounds, 2+ pulses. 2+ edema noted arms and legs. Pulm: Lung sounds clear to auscultation, respiratory rate and rhythm regular GI: Bowel sounds normal. Abdomen soft, non-tender. No masses, No organomegaly Musculoskeletal: No clubbing, cyanosis, inflammatory changes. No joint deformity, swelling or tenderness. Skin: Skin color, texture, turgor normal. No rashes or lesions. Neurological: negative findings: speech normal, mental status intact Wound/Stage: Bruising to groins and scrotum Psychiatric: Alert, oriented to person, place, time, and situation LAB: REVIEWED IN EMR, PERTINENT VALUES, AND DECISION MAKING, ARE INCORPORATED IN ASSESSMENT AND PLAN STUDIES: IMAGES HAVE BEEN PERSONALLY INTERPRETED IN PACS, RADIOLOGY REPORTS HAVE BEEN REVIEWED DECISION MAKING INCORPORATED INTO THE ASSESSMENT AND PLAN Patient was seen and evaluated with Anam Winchester MD. Plan of care was reviewed in detail. Associated attestation - Anam Winchester MD - 01/11/2023 1:45 PM EDT Date: 01/11/2023, 1:45 PM LOC:[id number]/[id number] Raghu Rosenthal 1945 ATTENDING NOTE: I saw and examined the patient with Mr. Luuyner and the Medicine Critical Care Team and confirmed their findings. I reviewed the medical record and pertinent test results. I personally looked at the imaging studies. I agree with their assessment and management as documented in this note and discussed on rounds and as amended below. Electronic signed by me. Anam Winchester MD * Osmany Isidro MD - 01/11/2023 10:38 AM EDT Images from the original note were not included. [facility] CARDIOLOGY BRIEF FELLOW NOTE: Patient is appropriate for TF to CIU. We will accept patient to CIU resident teaching service under Dr. Ludwig. Osmany Isidro MD, A Cardiovascular Sciences Fellow [employer] [facility] [employer] [facility] preferred After-hours pager: [phone] * Anam Winchester MD - 01/11/2023 9:41 AM EDT Mr. Rosenthal, initially admitted for TAVAR, volume overloaded. Admitted to CICU for diuresis Impression: S/P TVAR due to severe symptomatic bioprosthetic AVS, with volume overload and acute onchronic heart failure. Diuresis. Heart failure following CAD and bradycardia, cont current therapy, cards following Pulmonary toilet PT/OT Aggressive nutrition Monitor creatinine--adjust mediciations * Osmany Isidro MD - 01/11/2023 9:11 AM EDT Images from the original note were not included. [facility] HEART FAILURE PROGRAM ADVANCED HEART FAILURE CONSULTATION NOTE DATE: 01/11/2023 REFERRING PHYSICIAN: Anam Winchester MD CONSULTING PHYSICIAN: Ame Hardy MD REASON FOR CONSULT: Acute heart failure/ Consideration for advanced heart failure therapies REASON FOR HOSPITALIZATION: Decompensated heart failure DATE OF ADMISSION: 12/28/2022 1:45 PM LENGTH OF STAY: 13 days ASSESSMENT: Raghu Rosenthal is a 77yrs old Male with medical history significant for CAD s/p CABG (AVERY-LAD, SVG-OM)and s/p Tissue AVR 25mm pericardial valve in 2012, CKD 3, HTN, and HLD, consulted for ADHF. He continues to be diuresed well. Concern that his confusion and extreme fatigue are 2/2 decreased CO from bradycardia, especially now with intermittent junctional escape. Acute systolic HFrEF: LVEF 40-45%. Looks wet and warm. Likely 2/2 degenerative prosthetic AV stenosis. Last TTE in 02/2022 with LVEF of 65% and increasing aortic prosthetic valve gradients. Severe symptomatic bioprosthetic aortic valve stenosis S/P TransCatheter Aortic Valve Replacement ([id number]-ts-[id number], 26 Medtronic Evolut Pro, via the Left Transfemoral Approach) on 01/08/23, POD#3. Repeat TTE on 01/09 with well seated normal functioning prosthetic AV with no paravalvular leak. Hx of AVR with 25 mm Magna in 2012. Post-procedural symptomatic Bradycardia with pre-existing incomplete LBBB and first degree AV block: OR interval 210 ms and QRS 105 ms on lead II of EKG 05/30 which is stable on most recent EKG on 01/10. However, patient now has intermittent junctional escape. Not on meds with AV blocking activity. CAD s/p CABG with AVERY to LAD and SVG to RI in 2012. Cath 12/28 showed patent AVERY and occluded SVG. FILIBERTO on CKD-III, creatinine peak at 2.6, now 2.1 and stable Anemia: Hb 10 on admission, now 8 and stable TCP: Pt fluctuating, now 90. 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 Stanford today for PPM placement as patient is in junctional escape rhythm intermittently along with inappropriate low HR in the setting of ADHF - Diuretic Therapy: > Continue IV Diuresis with goal UO of 2L/24Hr > Close monitoring of BUN/creatinine and electrolytes - Continue ASA 81 mg indefinitely and Plavix for 6 months - Consider re-challenging with Statin if patient is agreeable. (Joint pain with atorvastatin in thepast). Initiate Zetia. - TTE prior to discharge, at 30 days and at 1 year - Guideline Directed Medical Therapy: > SHERMAN: hold > Beta Ricardo: hold > spironolactone: continue 25 mg OD > Farxiga: Hold - No immediate indication for invasive monitoring or hemodynamic-guided therapy - Heart Failure Management: > Strict I/O's and daily weight. > Daily BNP level in AM. > Fluid restriction of 2000 cc/day. Above findings, management strategy, goals of care, and prognosis were discussed with Dr. Hardy and reviewed with the patient. HISTORY OF PRESENT ILLNESS: Raghu Rosenthal is a 77yrs old Male with medical history significant for CAD s/p CABG (AVERY-LAD, SVG-OM)and s/p Tissue AVR 25mm pericardial valve in 2012, CKD 3, HTN, and HLD, consulted for ADHF. Patient initially presented with SOB and chest pressure on 12/28 as a TF from [facility]. He was found to be in cardiogenic shock, acute decompensated HF (LVEF 40% 12/28, last TTE in 02/2022 with LVEF of 65% and increasing aortic prosthetic valve gradients), NSTEMI 2/2 occluded SVG to ramus graft on cA 12/28, and severe degenerative prosthetic AVR stenosis. He underwent TransCatheter Aortic Valve Replacement ([id number]-mt-[id number], 26 Medtronic EvolutPro, via the Left Transfemoral Approach) on 01/08/23. Post procedure course is significant for bradycardia with HR 30-40 bpm with LBBB and first degree AV block on EKG. He is also on 4L oxygen via NC which is thought to be 2/2 ADHF. He has been diuresedwith IV Bumex gtt (neg 9.9 L since admission). At the time of evaluation today POD#3, he reports his initial presenting symptoms of SOB and CP have resolved. He has been walking short distances and sitting on chairs while in CVICU. Subjective: Patient reports he is not feeling good today. Reports fatigue, confusion, and constipation. He isin poor spirit today. His Bumex dose was decreased from 2 to 1 mg/Hr and received 1 dose of metolazone yesterday with UO of 3.8 L with net neg 1.6L over previous 24 Hr. Telemetry showed intermittent junctional escape rhythm. REVIEW OF SYSTEMS: General: No fever. Eyes: denies changes in vision, no vision loss. HENT: No hearing loss or ringing in ears Neuro: No seizures. No syncope. No headache. No motor or sensory symptoms. Denies dizziness Cardiology: no chest pain or palpitations, denies leg pain with walking Pulmonary: SOB, Coughing, or wheezing. JORDAN GI: No abdominal pain. No melena. No hematochezia. No nausea. No vomiting. No constipation. No diarrhea. : No dysuria. No hematuria. NO hesitancy or frequency. Endocrine: No heat or cold intolerance. No polyuria or polydypsia. No hair loss. Skin: No rash or suspicious lesions. MS: No muscle weakness. No myalgia. No arthralgia. No joint swelling. No back pain. Hem: No purpura. No easy bruising. PAST MEDICAL HISTORY: Past Medical History: Diagnosis Date Coronary artery disease Diverticulitis Hyperlipidemia Hypertension Subdural hematoma (CMS/HCC) PAST SURGICAL HISTORY: Past Surgical History: Procedure Laterality Date Left Main Stent Placement Left 01/08/2023 [place] [facility] [place] [facility], AORTIC VALVE, TRANSCATHETER, FEMORAL APPROACH (MEDTRONIC 26 ELSA); Intraoperative Echocardiogram Left 01/08/2023 Performed by [place]ania Hart[place] [facility] [place] [facility] [place] - CORONARY ARTERY BYPASS GRAFT [place] - REPLACEMENT OF AORTIC VALVE porcine SOCIAL HISTORY: Social History Tobacco Use Smoking status: Former Types: Cigarettes Smokeless tobacco: Never FAMILY HISTORY: No family history on file. ALLERGIES: Allergies Allergen Reactions Hydrocodone-Acetaminophen Shortness of Breath Problems breathing Venom-Honey Bee Shortness of Breath Morphine Sulfate Nausea and Vomiting Amoxicillin Mild diarrhea Atorvastatin Joint pain Clarithromycin Clavulanic Acid diarrhea Hydrocodone Bad reaction Indomethacin Lansoprazole Leflunomide Rash RASH Pravachol [Pravastatin] rash Tetracycline swelling Unclassified Drug Nausea and Vomiting Other reaction(s): Other (See Comments) IV dyes all extremtites cold MEDICATIONS: Reviewed. PHYSICAL EXAMINATION: Blood pressure (!) 112/44, pulse 51, temperature 36.5 ??C (97.7 ??F), resp. rate 18, height 1.753 m, weight 123.8 kg, SpO2 96 %. Constitutional: No acute distress. Eyes: conjunctiva within normal limits, no discharge from right and left eye. HENT: Normocephalic, atraumatic. Right and left external eye within normal limits. Oropharynx clearand dry. Neck: Supple. JVP difficult to assess but no significant distension. Cardiovascular: Normal S1. Normal S2. No S3. No S4. No murmurs. Bradycardic. Regular rhythm. Normalradial pulses bilaterally. Normal pedal pulses bilaterally. 2+ BL pitting lower extremity edema. Warm bilateral lower extremities Pulmonary/Chest: Breathing even and unlabored. No rales. No wheezing. GI: Soft, nontender, no distention, bruises+. Neuro: No focal motor or sensory deficit. Psychiatric: A&O x to self and place. Intake/Output Summary (Last 24 hours) at 01/11/2023 0911 Last data filed at 01/11/2023 0800 Gross per 24 hour Intake 1580 ml Output 3525 ml Net -1945 ml Wt Readings from Last 5 Encounters: 01/11/23 123.8 kg DIAGNOSTICS: LABS: Recent Labs 01/08/23 1234 01/08/23 1721 01/09/23 0219 01/09/23 1445 01/09/23 2321 01/10/23 0311 01/10/23 1611 01/10/23 2241 01/11/23 0403 HGB 8.7* -- 8.4* -- -- 8.2* -- -- 9.2* HCT 27.8* -- 26.9* -- -- 26.1* -- -- 29.0* PLATELET 177 -- 105* -- -- 90* -- -- 89* WBC 13.14* -- 12.69* -- -- 7.22 -- -- 6.70 SODIUM 134* -- 134* < > 132* 133* 133* -- 133* POTASSIUM 3.5 < > 3.4* < > 3.4* 4.5 3.4* 4.2 4.4 BUN 96* -- 95* < > 96* 91* 97* -- 96* CREATININE 1.78* -- 2.04* < > 2.17* 2.10* 2.12* -- 2.10* GFR 39* -- 33* < > 31* 32* 32* -- 32* < > = values in this interval not displayed. Recent Labs 01/09/23 0444 01/10/23 0311 BNP 3,973* 2,732* EKG: Date Rhythm QRSd LBBB 01/09/23 Sinus bradycardia 135 ms Incomplete DEVICE THERAPY: None CARDIAC CATHETERIZATION/ CORONARY ANGIOGRAPHY: LV = LVEDP is 30 mmHg. LM = distal left main has a 60% stenosis and trifurcates into an LAD, ramus and circumflex. LAD = proximal LAD is completely occluded and fills via AVERY to LAD. LCX =Circumflex is a codominant vessel that gives off small OM1 and a medium caliber OM 2 which hasminor irregularities and gives off a small L PDA. RCA = RCA is a medium caliber, codominant vessel that gives off a medium caliber PDA. It has diffuse 50 to 60% tandem stenosis. Ramus appears to have an SVG that is filling retrograde likely culprit for this VA. Proximal ramus has a 70% stenosis, AVERY to LAD is widely patent, distal to the AVERY touchdown there is a 50% stenosis in the LAD, it retrograde fills a medium caliber first diagonal. First diagonal has a proximal 70% stenosis. SVG to ramus is completely occluded. Right heart catheterization: RA:14 RV:55/10 PA: 54/23(35) PCWP:25 Pa sat:56% Ra Sat:56% Aortic valve gradient: 48mmHg mean grad CHELITA: 0.75cm2 Cardiac output was 5.5, cardiac index is 2.3 IMPRESSION: 1. Severe three-vessel disease with patent AVERY to LAD, intermediate stenosis in mid RCA, 60% distal left main stenosis. Culprit for his VA appears to be an occluded SVG to ramus graft. There is flowin the ramus with proximal 70% stenosis. 2. He is also noted to have severely degenerated bioprosthetic aortic valve, invasive gradients reviewed severely stenotic with mean gradient over 40 mmHg. 3. Decompensated heart failure with preserved cardiac output. We had discontinued his Levophed on arrival to the [facility]. LVEDP 30mmHg. ECHOCARDIOGRAPHY : 12/28/2022 The study was technically difficult with many images being suboptimal in quality. The left ventricular mass index is increased. E/E' averaged >13 The ejection fraction measured by 2D BP MOD is41%. Akinesis of the apex and periapical segments, anteroseptum with better motion of the LV base representing, until proven otherwise, LAD territory issues on a background of moderate aortic stenosis. 02/22/2022 Interpretation Summary 1. The left ventricle is mildly dilated by LVEDV of 160mL. Global and segmental systolic function is normal with a visually estimated LVEF of 65%. 2. The right ventricle is normal in size and global systolic function. 3. There is a bioprosthetic aortic valve present, known to be a 25mm pericardial tissue valve implanted on 09/02/2013. It appears well seated with no apparent regurgitation. Prosthetic valve gradients are elevated with mTVG of 26 mmHg and pTVG 48 mmHg. The DVI is 0.38. 4. No vegetations are seen on the valves. Consider ODILIA if clinically indicated. 5. When compared to the prior study dated 03/07/2018, the aortic prosthetic valve gradients have increased. See remainder of report for complete findings. Osmany Isidro MD, A Cardiovascular Sciences Fellow [facility] Cortext preferred After-hours pager: [phone] cc: Anam Winchester MD Associated attestation - Ame Hardy MD - 01/15/2023 11:37 AM EDT Images from the original note were not included. Psychiatric hospital Heart Failure Team Date: 01/11/23 Raghu Rosenthal was discussed with Dr. Isidro. The patient was seen/examined. I facilitated the development of the plan of care in collaboration with the heart failure team. Ame Hardy M.D., [facility] Advanced Heart Failure Makeup Artist Contact via Unisfair please * Ame Hardy MD - 01/11/2023 8:40 AM EDT Images from the original note were not included. Psychiatric hospital Advanced Heart Failure Team PRELIMINARY TABLE ROUNDS RECOMMENDATIONS: > continue with diuresis as tolerated > chronotropic incompetence likely playing a role- will likely benefit from PPM Ame Hardy M.D. Advanced Heart Failure Makeup Artist Contact via Cortext please * Pam Lares RN - 01/11/2023 5:42 AM EDT Shift Summary: Acute changes reported to provider, will report to oncoming RN. * Timothy Monroe MD - 01/10/2023 1:37 PM EDT Name:Raghu Rosenthal Room: [place] [address] DOS: 01/10/2023 Hospital day 13 SUBJECTIVE: He is doing ok. Sitting in chair. Walked a short distance yesterday with PT. Made 3 L urine yesterday. Off epi. On bumex drip. EKG - SB at 57 bpm, LBBB, OR interval 212 ms. Preoperatively, he had LBBB. OBJECTIVE: Scheduled Medicines [COMPLETED] acetaminophen (TYLENOL) 650 mg/20.3 mL solution 1,000 mg FOLLOWED BY acetaminophen (TYLENOL) tablet 1,000 mg albuterol (PROVENTIL) 2.5 mg /3 mL (0.083 %) nebulizer solution 2.5 mg aspirin EC tablet 81 mg bisacodyL (DULCOLAX) EC tablet 5 mg bumetanide in NS (BUMEX) 10 mg/100 mL infusion (premade) clopidogreL (PLAVIX) tablet 75 mg docusate sodium (COLACE) capsule 100 mg escitalopram (LEXAPRO) tablet 20 mg fenofibrate (TRICOR) tablet 145 mg gabapentin (NEURONTIN) capsule 100 mg heparin, porcine (PF) (hepARIN) 5,000 unit/0.5 mL injection 7,500 Units insulin lispro (HumaLOG) 100 units/mL sensitivity factor injection methocarbamoL (ROBAXIN) tablet 250 mg ondansetron (ZOFRAN) injection 4 mg pantoprazole (PROTONIX) EC tablet 40 mg phenoL (CHLORASEPTIC) 1.4 % oral spray 1 [place] polyethylene glycol (GLYCOLAX) packet 17 g [Held by Provider] sevelamer carbonate (RENVELA) packet 0.8 g spironolactone (ALDACTONE) tablet 25 mg tiotropium (SPIRIVA) 18 mcg per inhalation capsule 1 Capsule [Held by Provider] traZODone (DESYREL) tablet 100 mg Allergies Allergen Reactions Hydrocodone-Acetaminophen Shortness of Breath Problems breathing Venom-Honey Bee Shortness of Breath Morphine Sulfate Nausea and Vomiting Amoxicillin Mild diarrhea Atorvastatin Joint pain Clarithromycin Clavulanic Acid diarrhea Hydrocodone Bad reaction Indomethacin Lansoprazole Leflunomide Rash RASH Pravachol [Pravastatin] rash Tetracycline swelling Unclassified Drug Nausea and Vomiting Other reaction(s): Other (See Comments) IV dyes all extremtites cold Nutrition Therapy Intake/Output Summary (Last 24 hours) at 01/10/2023 1337 Last data filed at 01/10/2023 1200 Gross per 24 hour Intake 2026.7 ml Output 3785 ml Net -1758.3 ml BP 108/52 Pulse 53 Temp 36.5 ??C (97.7 ??F) Resp 21 Ht 1.753 m Wt 126.9 kg SpO2 100% BMI 41.29 kg/m?? BP Readings from Last 3 Encounters: 01/10/23 108/52 Physical Exam: General Appearance: Alert, cooperative, in no acute distress Eyes: Sclerae anicteric. HEET: Normocephalic, atraumatic. Neck: Supple, no JVD Cardiovascular: Normal rate, regular rhythm. Soft KANIKA. + bilateral LE pitting edema, normal pulses Respiratory: Breathing unlabored. Lungs clear to auscultation Gastrointestinal: Normoactive bowel sounds. Abdomen soft, nontender to palpation. Musculoskeletal: No back or joint deformity. Dermatologic: Skin is warm and dry. Neurologic: Alert and oriented and neurologic exam is grossly normal. Psychiatric: Normal affect and mood. LABS: Lab Results Component Value Date GLUCOSE 108 (H) 01/10/2023 BUN 91 (H) 01/10/2023 CREATININE 2.10 (H) 01/10/2023 CALCIUM 8.1 (L) 01/10/2023 ALBUMIN 2.7 (L) 01/08/2023 ANIONGAP 10 01/10/2023 Lab Results Component Value Date WBC 7.22 01/10/2023 HGB 8.2 (L) 01/10/2023 HCT 26.1 (L) 01/10/2023 MCV 97.0 01/10/2023 Component Ref Range & Units 03:11 1 d ago 9 d ago 13 d ago Brain Natr Peptide <=100 pg/mL 2,732 High 3,973 High 4,290 High 3,615 High CXR - RUL infiltrate ?pulm edema ASSESSMENT AND PLAN: Severe s/p valve in valve TAVR with 26 mm Evolut FX within 25 mm Magna on 01/08/23 CAD s/p CABG. Patent AVERY to LAD. Occluded SVG to RI. Distal LM 60% stenosis with IVUS MLA 7.7 mm2. Acute on chronic systolic CHF EF 35-40% FILIBERTO on CKD Hyponatremia Plan Continue diuresis. Can add metolazone to bumex drip. Try to remove brachial a-line. Can get radial a-line if needed or follow cuff pressures. He had RIJ cordis. Can use to float [place] Karon catheter if needed. At this time, he is making good urine, so would continue diuresis with bumex drip +/- metolazone. Monitor electrolytes BID while on bumex drip. Stop trazodone. Keep K > 4, Mg > 2. I discussed with CICU child care lead teacher who will accept lateral transfer. Serial daily CXRs to monitor RUL infiltrate. His WBC count was 13 two days ago,12 yesterday but down to 7.7 today. Will defer to CICU about decision whether he needs abx for HCAP. For now, continue to monitor WBC and CXR. Electronically signed by Timothy Monroe MD 01/10/2023 1:44 PM * Tran Fonseca AGNP - 01/10/2023 11:05 AM EDT Transfer Summary Note Provider ALEIDA Cochran Attending Physician: Tania Hartley MD 01/10/2023 Admit Date: 12/28/2022 Length of Stay: 12 days Accepting Service: CICU Reason for Transfer: HF management Raghu Rosenthal, 77yrs old, Male CODE STATUS: Full Code ADMIT DIAGNOSIS: S/P TAVR (transcatheter aortic valve replacement) Active Hospital Problems Diagnosis *01/08/23 TransCatheter Aortic Valve Replacement (Hmbii-jm-Rquny, 26 Medtronic Evolut Pro, via the Left Transfemoral Approach) EF 35% CKD (chronic kidney disease) stage 3, GFR 30-59 ml/min ([facility]) FILIBERTO (acute kidney injury) ([facility]) Pulmonary edema Cardiogenic shock ([facility]) Acute on chronic HFrEF (heart failure with reduced ejection fraction) ([facility]) NSTEMI (non-ST elevated myocardial infarction) ([facility]) Hypertension Hyperlipidemia Coronary artery disease HOSPITAL COURSE: Raghu Rosenthal is a 77yrs Male with PMH of CAD s/p CABG x2 in [place] 10 years ago, HTN, HLD, porcine AVR who initially presented to [place] ED with complaints of SOB and midchest pressure. Patient lives in [place] with his , and is visiting [facility] for the next 3 months. He recently had a ziopatchplaced by the [facility] on 12/27. Following this procedure he had worsening SOB associated with fatigue, malaise and generalized weakness. EMS was called and he was brought to [place] ED. On arrival he was noted to be in mild respiratory distress and required bipap. WBC of 19. EKG without NUNO, troponin 1.197. CXR consistent with mild interstitial edema, and a small left pleural effusion. He was given nitro sublingual and morphine, and started on BID lovenox. He was admitted to the ICU at [place]. He was started on empiric vanc, cefepime for possible infection. He was hypotensive requiring levophed with a differential of cardiogenic vs septic shock. He had a repeat EKG done on 12/28 with a new LBBB. His troponin trended as high as 39. Given concerns for acute coronary syndrome, he was transferred to [facility] health for further management. On arrival to CICU he required low dose levophed. POCUS with EF visually estimated at 45%. He underwent LHC/CA on 12/28/2022 with severe bioprosthetic and patent AVERY to LAD and occluded SVG to RI. Distal LM 80% stenosis. He was transferred to [facility] service on 12/31 where he continued to bemedically managed in anticipation for TAVR. He returned back to CICU for further volume optimization and support on 01/04. He was diuresed with IV lasix and placed on BiPAP intermittently for worsening dyspnea. On 01/08 patient underwent TAVR (LINDA) and required Epinephrine and Levophed drips. He was aggressively diuresed with IV Bumex drip with intermittent diuril. His vasopressors and inotrope's were weanedoff. He was transferred to CICU for further heart failure management. PROCEDURES: N/A Catheters/Lines: Bruno catheter: Yes Date placed: 01/08/2023 Nasogastric or orogastric tube: No Central Line: Yes Type: R IJ Cordis Date placed: 01/08/2023 Other Arterial line placed 01/08/2023 Pertinent RADIOLOGICAL STUDIES: XRAY CHEST 1 VIEW Result Date: 01/10/2023 IMPRESSION: No pneumothorax. Persistent bilateral upper lobe opacities. Improved pulmonary edema. Reading Doctor: Hugh Salcido Electronic Signature by: Hugh Salcido XRAY CHEST 1 VIEW Result Date: 01/09/2023 IMPRESSION: Kinking of right IJ venous sheath. Persistent bilateral pulmonary opacities. Reading Doctor: Hugh Salcido Electronic Signature by: Hugh Salcido XRAY CHEST 1 VIEW Result Date: 01/08/2023 IMPRESSION: Increase in density in right upper lobe airspace opacity and to a slight degree left upper lobe as well. These are concerning for pneumonitis versus asymmetric pulmonary edema. Cardiomegaly and small pleural effusions bilaterally. Reading Doctor: Jr Grider Electronic Signature by: Jr Grider Pertinent LABS: Chemistry: Recent Labs 01/08/23 1234 01/08/23 1237 01/09/23 0219 01/09/23 0302 01/09/23 1445 01/09/23 1744 01/09/23 2321 01/10/23 0311 01/10/23 0741 SODIUM 134* -- 134* -- 132* -- 132* 133* -- POTASSIUM 3.5 < > 3.4* -- 3.4* -- 3.4* 4.5 -- CHLORIDE 98 -- 97* -- 96* -- 95* 96* -- BICARBONATE 28 -- 27 -- 25 -- 27 -- GLUCOSE 165* < > 181* < > 127* < > 119* 98 103 94 BUN 96* -- 95* -- 93* -- 96* 91* -- CREATININE 1.78* -- 2.04* -- 2.18* -- 2.17* 2.10* -- CALCIUM 8.5 4.8 -- 8.2* 4.5 -- 8.4 -- 8.3* 4.5 8.1* -- PHOSPHORUS -- -- 4.4 -- -- -- 3.9 3.7 -- MAGNESIUM 2.0 < > 2.4 -- -- -- 2.7* 2.7* -- BILIRUBIN 0.6 1.8* -- -- -- -- -- -- -- -- PHOSPHATASE 40 -- -- -- -- -- -- -- -- TRANSAMINASE 42* 21 -- -- -- -- -- -- -- -- PROTEIN 4.8* -- -- -- -- -- -- -- -- ALBUMIN 2.7* -- -- -- -- -- -- -- -- < > = values in this interval not displayed. Hematology: Recent Labs 01/08/23 0439 01/08/23 0954 01/08/23 1234 01/09/23 0219 01/10/23 0311 WBC 4.78 -- 13.14* 12.69* 7.22 HGB 9.9* < > 8.7* 8.4* 8.2* MCV 96.6 -- 97.9 98.5 97.0 PLATELET 117* -- 177 105* 90* PT 19.2* -- -- -- -- < > = values in this interval not displayed. Cardiac: No results for input(s): TROPONIN in the last 72 hours. Pertinent MICROBIOLOGY STUDIES: Blood cultures: N/A Urine cultures: N/A Other cultures: Respiratory culture ordered 01/10 Diet: Diet Orders (From admission, onward) Ordered Nutrition Therapy Diet Effective 0600 Question Answer Comment Nutrition Therapy: Regular/House Nutrition Therapy: Sodium Restricted Nutrition Therapy: Consistent Carbohydrate Carb Calorie Amount: 2000 Calories Sodium Restriction: 2 gram 01/08/232124 Current Scheduled Meds: acetaminophen tablet, 1,000 mg, EVERY 8 HOURS aspirin, 81 mg, DAILY bisacodyL, 5 mg, DAILY clopidogreL, 75 mg, DAILY docusate sodium, 100 mg, BID escitalopram, 20 mg, DAILY fenofibrate, 145 mg, WITH BREAKFAST gabapentin, 100 mg, QHS hepARIN subcutaneous injection, 7,500 Units, Q8HR insulin lispro, , FIVE TIMES A DAY INSULIN methocarbamoL, 250 mg, QID pantoprazole, 40 mg, 0600 polyethylene glycol, 17 g, DAILY [Held by Provider] sevelamer carbonate, 0.8 g, TID-WITH MEALS spironolactone, 25 mg, DAILY tiotropium, 1 Capsule, RTDAILY [Held by Provider] traZODone, 100 mg, QPM Current Continuous IV FLUIDS or Drips: bumetanide, Last Rate: 2 mg/hr (01/10/23 0900) Social History Social History Narrative Not on file Family Contact: Extended Emergency Contact Information Primary Emergency Contact: Cathy Rosenthal Mobile Relation: Primary medical doctor: Williams Yip MD * Natividad Hatch ACNP - 01/10/2023 10:51 AM EDT Images from the original note were not included. Cardiac Critical Care Progress Note RUMA Hsu Date: 01/10/2023, 12:45 PM LOC:[id number]/[id number] Raghu Rosenthal 1945 Hosp day:12 days Referring MD: Williams Yip MD ICU Day: # 6 Code Status: Full Code Chief Complaint: Severe Narrative/Overnight/ROS: (History and SOAP notes have been reviewed in the EMR) 01/10/23 Patient transferred back to CICU from CVICU post TAVR for ongoing decompensated heart failure. On arrival to CICU pt is awake and alert, hemodynamically stable. His only complaint is a sore throat. Denies chest pain or shortness of breath. On a bumex drip. Hospital Course: Raghu Rosenthal is a 77yrs Male with PMH of CAD s/p CABG x2 in [place] 10 years ago, HTN, HLD, porcine AVR who initially presented to [place] ED with complaints of SOB and midchest pressure. Patient lives in [place] with his , and is visiting [facility] for the next 3 months. He recently had a ziopatchplaced by the [facility] on 12/27. Following this procedure he had worsening SOB associated with fatigue, malaise and generalized weakness. EMS was called and he was brought to [place] ED. On arrival he was noted to be in mild respiratory distress and required bipap. WBC of 19. EKG without NUNO, troponin 1.197. CXR consistent with mild interstitial edema, and a small left pleural effusion. He was given nitro sublingual and morphine, and started on BID lovenox. He was admitted to the ICU at [place]. He was started on empiric vanc, cefepime for possible infection. He was hypotensive requiring levophed with a differential of cardiogenic vs septic shock. He had a repeat EKG done on 12/28 with a new LBBB. His troponin trended as high as 39. Given concerns for acute coronary syndrome, he was transferred to [facility] for further management. [facility], patient is awake and alert. He is on low dose levophed. He is warm to the touchand appears well perfused. POCUS with EF visually estimated at 45%. Breathing comfortably on room air. He underwent a R/LHC 12/28/2022 showing severe three-vessel disease with patent AVERY to LAD, intermediate stenosis in mid RCA, 60% distal left main stenosis, culprit for his VA appears to be an occluded SVG to ramus graft. He was also noted to have severely degenerated bioprosthetic aortic valve, invasive gradients reviewed severely stenotic with mean gradient over 40 mmHg. He was transferred out to the [facility] cards service while workup for TAVR was done. He was transferred back to CICU on 01/04for optimization prior to TAVR. He underwent TAVR on 01/08. Transferred back to CICU on 01/10 for ongoing heart failure management. Active Hospital Problems: Active Hospital Problems Diagnosis *01/08/23 TransCatheter Aortic Valve Replacement (Nfpro-ij-[id number], 26 Medtronic Evolut Pro, via the Left Transfemoral Approach) EF 35% CKD (chronic kidney disease) stage 3, GFR 30-59 ml/min ([facility]) FILIBERTO (acute kidney injury) ([facility] Pulmonary edema Cardiogenic shock ([facility]) Acute on chronic HFrEF (heart failure with reduced ejection fraction) ([facility]) NSTEMI (non-ST elevated myocardial infarction) ([facility]) Hypertension Hyperlipidemia Coronary artery disease Problem List: Decompensated HFrEF Assessment: ECHO with EF 41%. 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 years ago Plan: Bumex drip Holding BB, SHERMAN in decompensated state Aldactone If his kidney function worsens or UO drops off, consider PAC. NSTEMI, Coronary Artery Disease Assessment: Presented with new LBBB, chest pain. [facility] with Severe three-vessel disease with patent AVERY to LAD, intermediate stenosis in mid RCA, 60% distal left main stenosis. Culprit for his VA appears to be an occluded SVG to ramus graft. There is flow in the ramus with proximal 70% stenosis. Plan: Aspirin, plavix Tricor Holding BB, SHERMAN until hemodynamics allow Severe Aortic Stenosis s/p TAVR, Degenerated Bioprosthetic Aortic Valve Assessment: TAVR with Dr Hartley on 01/08. 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 Lines/Tubes/Drains -Bruno: no -CVC: no -Art line: no -Other: N/a 2. SBT/SAT: N/A 3. Nutrition Status: Nutrition Therapy 4. Glycemic Control: -103 mg/dL (01/10 311) -12/28/2022: Hemoglobin A1C 5.0 % -N/A 5. Mobility Status - GEMS: Mobility Level 3- Standing activities with assist - PT/OT:no 6. DVT Prophylaxis: Heparin 7. PUD Prophylaxis: N/A 8. CAM ICU Score: Delirium Assessment CAM-ICU Acute Change or Fluctuating Course of Mental Status: No Inattention: 0 - 2 Errors Altered Level of Consciousness: RASS other than Zero Disorganized Thinkin - 1 Error CAM-ICU Score: Negative -Interventions N/A 9. Current antibiotics: None Most Recent Restraint Order (From admission, onward) None Medications: SCHEDULED MEDICATIONS acetaminophen tablet, 1,000 mg, EVERY 8 HOURS aspirin, 81 mg, DAILY bisacodyL, 5 mg, DAILY clopidogreL, 75 mg, DAILY docusate sodium, 100 mg, BID escitalopram, 20 mg, DAILY fenofibrate, 145 mg, WITH BREAKFAST gabapentin, 100 mg, QHS hepARIN subcutaneous injection, 7,500 Units, Q8HR insulin lispro, , FIVE TIMES A DAY INSULIN methocarbamoL, 250 mg, QID pantoprazole, 40 mg, 0600 polyethylene glycol, 17 g, DAILY [Held by Provider] sevelamer carbonate, 0.8 g, TID-WITH MEALS spironolactone, 25 mg, DAILY tiotropium, 1 Capsule, RTDAILY [Held by Provider] traZODone, 100 mg, QPM bumetanide, Last Rate: 2 mg/hr (01/10/23 1200) PRN Inpatient Medications: albuterol, 2.5 mg, U3LD-GHD ondansetron, 4 mg, L0XD-ROD phenoL, 1 [place], PRN Echo : ECHO Result Date: 12/28/2022 Reason for Exam: Chest Pain Date of Service: 12/28/2022 Interpretation Summary There is no comparison study available. Patient Height 175.0 cm Patient Weight 127.0 kg Systolic Pressure 132 mmHg Diastolic Pressure 53 mmHg Study Location ECH BSA 2.4 m^2 Procedure: A complete two-dimensional transthoracic echocardiogram was performed (2D, M-mode, spectral and color flow Doppler). Study Quality: Fair. The study was technically difficult with many images being suboptimal in quality. A contrast injection of Definity was performed to improve assessment of LV function. Left Ventricle: The left ventricular mass index is increased. There is mild concentric left ventricular hypertrophy. LVEDV 299 ml with BSA 2.4 m2 The ejection fraction measured by 2D BP MOD is41%. The LV ejection fraction is severely decreased. Akinesis of the apex and periapical segments, anteroseptum with better motion of the LV base representing, until proven otherwise, LAD territory issues on a background of moderate aortic stenosis. There is no thrombus. LV diastolic function can not be accurately assessed. E/E' averaged>13 Left Atrium: The left atrial volume is mildly increased. Right Atrium: Right atrial size is normal. Right Ventricle: The right ventricular systolic function is normal. Aortic Valve: Focal calcification. The aortic valve is not well visualized. The peak aortic valve velocity 385 cm/s. Aortic mean pressure gradient= 32 mmHg. The aortic valve velocity ratio was calculated at 0.27. Mitral Valve: Both leaflets are pliable and mobile. There is trace mitral regurgitation. Tricuspid Valve: The tricuspid valve is not well visualized. There was insufficient TR detected to calculate RV systolic pr essure. Pulmonic Valve: The pulmonic valve is not well visualized. Trace pulmonic valvular regurgitation. Arteries: The aortic root is normal size. There is aortic root sclerosis/calcification. Aortic arch not seen well. Venous: Severely dilated inferior vena cava. Pericardium/Pleura: There is no pericardial effusion. MMode 2D Measurements & Calculations IVSd - 1.2 cm LVIDd - 5.9 cm LVIDs - 4.7 cm LVPWd - 1.1 cm IVS/LVPW - 1.1 FS - 20.9 % EDV(Teich) - 172.5 ml ESV(Teich) - 100.2 ml EF(Teich) - 41.9 % EF (est.) - 41.1 % EDV(cubed) - 204.3 ml ESV(cubed) - 101 ml EF(cubed) - 50.6 % LV mass(C)d - 277.7 grams LV mass(C)dI - 116.6 grams/m^2 SV(Teich) - 72.4 ml SI(Teich) - 30.4 ml/m^2 SV(cubed) - 103.3 ml SI(cubed) - 43.4 ml/m^2 Ao root diam - 3.4 cm Ao root area - 9.3 cm^2 LA dimension - 4.7 cm LA/Ao - 1.4 LVLd ap4 - 11.6 cm EDV(MOD-sp4) - 289 ml LVLs ap4 - 10.1 cm ESV(MOD-sp4) - 176 ml EF(MOD-sp4) - 39.1 % LVLd ap2 - 11.3 cm EDV(MOD- sp2) - 302 ml LVLs ap2 - 10.1 cm ESV(MOD-sp2) - 176 ml EF(MOD-sp2) - 41.7 % SV(MOD-sp4) - 113 ml SI(MOD-sp4) - 47.5 ml/m^2 SV(MOD-sp2) - 126 ml SI(MOD-sp2) - 52.9 ml/m^2 Doppler Measurements & Calculations MV E max bee - 93.3 cm/sec MV A max bee - 113.7 cm/sec MV E/A - 0.82 MV dec time - 0.17 sec Ao V2 max - 330.8 cm/sec Ao max PG - 46.5 mmHg Ao max PG (full) - 42.4 mmHg Ao V2 mean - 223.4 cm/sec Ao mean PG - 24.8 mmHg Ao mean PG (full) - 22.8 mmHg Ao V2 VTI - 64.6 cm LVOT max gradient - 4.2 mmHg LV V1 mean PG - 2 mmHg LVOT max bee - 101.7 cm/sec LV V1 mean - 68.2 cm/sec LV V1 VTI - 20.4 cm SV(Ao) - 600 ml SI(Ao) - 252 ml/m^2 PA V2 max - 121.7 cm/sec PA max PG - 5.9 mmHg Conclusion The study was technically difficult with many images beingsuboptimal in quality. The left ventricular mass index is increased. E/E' averaged >13 The ejection fraction measured by 2D BP MOD is41%. Akinesis of the apex and periapical segments, anteroseptumwith better motion of the LV base representing, until proven otherwise, LAD territory issues on a background of moderate aortic stenosis. InterpretingPhysician:Interpreting Physician: Papi Delcid, electronically signed on 2022-12-28 16:16:52.52 Physical Examination: VItals: BP (!) 100/43 Pulse 54 Temp 36.5 ??C (97.7 ??F) Resp 21 Ht 1.753 m Wt 126.9 kg SpO2 98% BMI 41.29 kg/m?? Temp (24hrs), Av.4 ??C (97.6 ??F), Min:36.4 ??C (97.5 ??F), Max:36.6 ??C (97.8 ??F) Admit Weight: 121.7 kgCurrent Weight: 122.6 kg BMI: 39.896 Ventilation: Resp: 21 SpO2: 98 % O2 Mode: Nasal Cannula Or Prongs, With Humidification O2 Frequency: Continuous Telemetry: NSR Intake/Output Summary (Last 24 hours) at 01/10/2023 1245 Last data filed at 01/10/2023 1200 Gross per 24 hour Intake 2026.7 ml Output 3785 ml Net -1758.3 ml Body mass index is 41.29 kg/m??. Constitutional: alert, oriented times four and well nourished, well developed, and in no distress HENT: normocephalic, atraumatic, + JVD, no carotid bruits, trachea midline and normal to palpitation EYES: Both eyes: conjunctivae and sclerae clear, pupils equal, round, reactive to light and accommodation, EOM's intact CV: S1 and S2 normal, no murmurs, no gallops, no extra heart sounds, 2+ pulses. 2+ edema noted. Pulm: Lung sounds clear to auscultation, respiratory rate and rhythm regular GI: Bowel sounds normal. Abdomen soft, non-tender. No masses, No organomegaly Musculoskeletal: No clubbing, cyanosis, inflammatory changes. No joint deformity, swelling or tenderness. Skin: Skin color, texture, turgor normal. No rashes or lesions. Neurological: negative findings: speech normal, mental status intact Wound/Stage: Bruising to groins and scrotum Psychiatric: Alert, oriented to person, place, time, and situation LAB: REVIEWED IN EMR, PERTINENT VALUES, AND DECISION MAKING, ARE INCORPORATED IN ASSESSMENT AND PLAN STUDIES: IMAGES HAVE BEEN PERSONALLY INTERPRETED IN PACS, RADIOLOGY REPORTS HAVE BEEN REVIEWED DECISION MAKING INCORPORATED INTO THE ASSESSMENT AND PLAN Patient was seen and evaluated with Anam Barlow MD. Plan of care was reviewed in detail. Associated attestation - Anam Winchester MD - 01/11/2023 10:19 AM EDT Date: 01/11/2023, 10:15 AM LOC:[id number] Raghu Rosenthal 1945 ATTENDING NOTE: I saw and examined the patient with Ms. Hatch on 01-10-23 and the Medicine Critical Care Team and confirmed their findings. I reviewed the medical record and pertinent test results. I personally looked at the imaging studies. I agree with their assessment and management as documented in this note and discussed on rounds and as amended below. Electronic signed by me. Mr. Rosenthal is a 77 year old man with hx of sever s/p TVAR that is transferred from the CVICU for management of heart failure. He has hx d CAD, bradycardia, and chronic kidney disease. He has an EF of 35%. Impression Acute on chronic heart failure with volume overload (no evidence of shock) s/p CAD, bradycardia and TVAR from , all complicated by deconditioning. Diuresis Heart failure following Cards following PT/OT, may need rehab Monitor kidney function, renal dose meds and avoid nephrotoxic drugs Holding heart failure meds for now Anam Winchester MD * Zara Capellan, [facility] - 01/10/2023 1:54 AM EDT CV Critical Care Progress Note Raghu Rosenthal 77yrs Male [id number] POD # 2 S/P TransCatheter Aortic Valve Replacement ([id number]-qp-[id number], 26 Medtronic Evolut Pro, via the Left Transfemoral Approach) EF 35% Events over past 24 hours: Weaned off Epinephrine. B feet cool to touch with DPP +1. +2 pitting edema to BLE. Remains on Bumex infusion at 2mg/hr with PO aldactone. Episode of bradycardia with rates in 30-40s without drop in BP. One episode of Vtach (8 beat) that resolved without intervention. Labsdrawn and potassium replaced. EKG obtained and noted prolong Qtc (657). Reviewed medications and held Trazodone. Follow up EKG ordered to evaluate Qtc. Impression/Plan: Patient Active Hospital Problem List: 01/08/23 TransCatheter Aortic Valve Replacement ([id number]-gj-[id number], 26 Medtronic Evolut Pro, via the Left Transfemoral Approach) EF 35% (01/08/2023) Assessment: POD #3 Plan: TAVR per unit protocol Monitor VS Monitor clinical presentation for signs of decreased perfusion Monitor UOP CXR and Labs per protocol Aggressive pulmonary toilet, cont home inhalers ASA/Plavix/Heparin SQ Hold Trazodone Regular diet NSTEMI (non-ST elevated myocardial infarction) ([facility]) (12/28/2022); Coronary artery disease (12/28/2022) Assessment: s/p CABG 10 yrs ago. Plan: ASA/Plavix/Tricor Holding BB due to TAVR and risk of HB Bradycardia (01/10/2023) Assessment: HR 30-40s overnight, Qtc 657, asymptomatic with no drop in BP Plan: cont CM Hypertension (12/28/2022) Assessment: Norvasc/ARB/HCTZ at home Plan: Restart home medications when appropriate Holding ARB due to FILIBERTO Hyperlipidemia (12/28/2022) Assessment: Home Tricor/crestor Plan: Cont home Tricor Patient reports statin not tolerated so held Cardiogenic shock ([facility]) (01/08/2023) Assessment: Weaned off Epinephrine overnight, cool feet with diminished DPP but difficult to assessrelated to pitting edema Plan: Cont to monitor clinically Place PA catheter if concern about cardiac function Acute on chronic HFrEF (heart failure with reduced ejection fraction) ([facility]) (01/08/2023) Assessment: EF 35%, presented in decompensated HF, Bumex infusion, elevated BNP Plan: Cont Bumex infusion Cont Aldactone Trend BNP Maintain SBP CKD (chronic kidney disease) stage 3, GFR 30-59 ml/min ([facility]) (01/09/2023) Assessment: Creatinine 1.62 (02/19/2020), currently on Bumex infusion and receiving Aldactone, creatinine with slight increase 2.10 from 2.04, hyponatremia, hypokalemia Plan: Cont Bumex infusion Cont Aldactone Renal dose medications Avoid nephrotoxic medications Pulmonary edema (01/09/2023) Assessment: Noted on CXR, elevated BNP, cont to require 6L NC Plan: cont diuresis Daily CXR Trend BNP Core Measures: ASA- Yes ACEI/ARB- No, Explain: Acute on chronic renal failure Beta Ricardo- No, Explain: bradycardia Statin- No, Explain: intolerance, Zetia GI PPX- Yes, Protonix DVT Prophylaxis (Chemical)- Yes, Subq heparin Objective Data: Vitals Signs: Blood pressure (!) 104/44, pulse 56, temperature 36.4 ??C (97.6 ??F), resp. rate 15, height 1.753 m, weight 126.9 kg, SpO2 97 %. Telem: Sinus Bradycardia, NOS Continuous Infusions: Dopamine: Epinephrine: Dose (mcg/kg/min): 0 mcg/kg/min Milrinone: Norepinephrine: Phenyleprhine: Vasopressin: Clevidipine: Labetalol: Nicardipine: Nitroglycerin: Fentanyl: Midazolam: Propofol: Precedex: Amiodarone: Diltiazem: Heparin: Insulin: I/O: Admit Weight: Weight: 126.9 kg Intake/Output Summary (Last 24 hours) at 01/10/2023 0540 Last data filed at 01/10/2023 0500 Gross per 24 hour Intake 2391.7 ml Output 3255 ml Net -863.3 ml 01/08 0700 - 01/09 1859 In: 4118.7 [P.O.:1250; I.V.:2868.7] Out: 2955 [Urine:2955] Physical Exam: Neuro: Awake, alert and oriented x 3 Eyes: normal Cardiovascular: S1S2 w/murmur, sinus bradycardia per CM Extremities: + edema present foot, leg, extremities coolDPP +1 to BLE Respiratory: CTA B, O2 per NC Gastrointestinal:soft, nondistended, nontender, normal bowel sounds, bruising noted to suprapubic area and lower pannus Musculoskeletal: no deformities present Integumentary: Skin color, texture, turgor normal. No rashes or lesions. Psych: affect normal Labs: Reviewed in EMR. Pertinent values have been incorporated in the assessment and plan. Studies: I have personally reviewed all chest x-rays, additional imaging, tracings, and studies along with their interpretation reports. Pertinent findings have been incorporated in the assessment and plan. This patient is critically ill. I have spent 30 minutes devoted solely to this patient managing life and organ-supporting interventions. This includes but not limited to time spent making adjustmentsto mechanical ventilator settings, titration of vasoactive drips, evaluation and management of fluid balance, review of laboratory and radiographic test results, review and adjustment of scheduled and PRN medications, updating the patient/family regarding the patient's status and prognosis, along with discussion of patient's clinical course with healthcare consultants. This does not include time spent performing separately billed procedures. Time is not concurrent with that of other providers Electronically signed by: RUMA Crouch 01/10/2023 * Tania Gomes [facility] - 01/09/2023 10:41 AM EDT Case Management Plan of Care Note MR #: [id number] Date of Admission: 12/28/2022 Attending Physician: Tania Hartley MD Principle Problem : S/P TAVR (transcatheter aortic valve replacement) Hospital Problems: Active Hospital Problems Diagnosis *01/08/23 TransCatheter Aortic Valve Replacement (Mohrf-vn-[id number], 26 Medtronic Evolut Pro, via the Left Transfemoral Approach) EF 35% CKD (chronic kidney disease) stage 3, GFR 30-59 ml/min ([facility]) FILIBERTO (acute kidney injury) ([facility]) Pulmonary edema Cardiogenic shock ([facility]) Acute on chronic HFrEF (heart failure with reduced ejection fraction) ([facility]) NSTEMI (non-ST elevated myocardial infarction) ([facility]) Hypertension Hyperlipidemia Coronary artery disease Insurance: Primary: Payor: MEDICARE / Plan: MEDICARE PART A & B / Product Type: Medicare / Secondary: [facility] COUNTY: [place] LOS: 12 Current Date\Time: 01/09/2023, 10:41 AM Participants (discussed with separately):This Medical Researcher per chart review. Anticipated Discharge Destination: Home with vs. IPR Overview: POD # 1 S/P TransCatheter Aortic Valve Replacement (Tzmpi-ua-[id number], 26 Medtronic Evolut Pro, via the Left Transfemoral Approach) EF 35% Case Management Barrier(s)/Issue(s) & Associated Action Plan\Recommendation: Barrier: Remains on Epi gtt. Off Levo. Given Diuril to augment UOP with some improvement. Lasix gtt changed to Bumex. Pulmonary edema slightly worse on CXR. Spironolactone restarted. Intermittently confused. Given half home dose of Trazodone. CPAP. Plan: Pt transferred to CVICU after TAVR procedure yesterday. Met with pt and his Cathy at bedside to discuss the POC. Pt and his have a home in [place], the address on the facesheet, they had been renting a condoin [place], [place] [employer]. Per pts they rented the condo for 3 months, this is the 3rd month. The address of the condo is: [address] [place], [place]. The condo is on the 4th floor, there is an elevator. Pt is very independent at baseline. No HH/DME used [employer]. Drives self. Both pt and his are retired. Medicare/VA insurance. Rx coverage. Plan for discharge with once medically ready. Per pt and it will depend on how pt is doing where they go, home to [place] vs [place], [place]. They have 3 adult daughters that live in [place] as well. One daughter is here now visiting since pt had surgery yesterday. They did drive here from [place]. Per pt he would rather fly home if he is cleared for that medically. PT/OT are consulted. OT saw pt this am and has recommended IPR. CM will continue to follow. Comments: Case management will continue to follow patient's progression and appropriate discharge disposition. I have discussed the discharge plan with the patient who understands and agrees. via Source of Information: Self, Chart Review. PURA Hannon Cardiac Medical Researcher-CVICU [email or web address] For Case Management assistance Sunday through Sunday, Weekends or Holidays 8:30 am-5:00 pm, please page [phone] pager [phone]. For Case Management assistance after 5:00 pm, please call [phone]. * Lan Berumen RN - 01/09/2023 9:16 AM EDT Problem: Adult Inpatient Plan of Care Goal: Plan of Care Review Outcome: Ongoing, Progressing Goal: Patient-Specific Goal (Individualized) Outcome: Ongoing, Progressing Goal: Absence of Hospital-Acquired Illness or Injury Outcome: Ongoing, Progressing Goal: Optimal Comfort and Wellbeing Outcome: Ongoing, Progressing Goal: Readiness for Transition of Care Outcome: Ongoing, Progressing Problem: Adjustment to Illness (Acute Coronary Syndrome) Goal: Optimal Adaptation to Illness Outcome: Ongoing, Progressing Problem: Dysrhythmia (Acute Coronary Syndrome) Goal: Normalized Cardiac Rhythm Outcome: Ongoing, Progressing Problem: Cardiac-Related Pain (Acute Coronary Syndrome) Goal: Absence of Cardiac-Related Pain Outcome: Ongoing, Progressing Problem: Hemodynamic Instability (Acute Coronary Syndrome) Goal: Effective Cardiac Pump Function Outcome: Ongoing, Progressing Problem: Tissue Perfusion (Acute Coronary Syndrome) Goal: Adequate Tissue Perfusion Outcome: Ongoing, Progressing Problem: Fall Injury Risk Goal: Absence of Fall and Fall-Related Injury Outcome: Ongoing, Progressing Goal: Absence of Fall and Fall-Related Injury Outcome: Ongoing, Progressing Goal: Absence of Fall and Fall-Related Injury Outcome: Ongoing, Progressing Problem: Pain Acute Goal: Acceptable Pain Control and Functional Ability Outcome: Ongoing, Progressing Problem: Restraint, Nonbehavioral (Nonviolent) Goal: Absence of Harm or Injury Outcome: Ongoing, Progressing * Meggan Henry RN - 01/09/2023 6:19 AM EDT Shift Summary Lasix and levo off. Changed to Bumex. Epi still on. Pt got up to chair. * Shavon Mata PA-C - 01/09/2023 12:04 AM EDT CV Critical Care Progress Note Raghu Rosenthal 77yrs Male [id number] POD # 1 S/P TransCatheter Aortic Valve Replacement (Grrbs-fi-Iuryv, 26 Medtronic Evolut Pro, via the Left Transfemoral Approach) EF 35% Events over past 24 hours: Arrived from the OR at 12:20 intubated and sedated on propofol. No bloodproducts were required. Reversed by anesthesia. In NSR on Epi (0.02) and Norepi (0.04) for systolicblood pressure support. RIJ in place, no swan. Bruno in place and making adequate urine. Pre-operatively lasix drip started per attending. Sedation weaned and patient extubated. Follows commands and moves all extremities. Overnight: Remains on Epi gtt. Off Levo. Given Diuril to augment UOP with some improvement. Lasix gtt changed to Bumex. Pulmonary edema slightly worse on CXR. Spironolactone restarted. Intermittentlyconfused. Given half home dose of Trazodone. CPAP. Impression/Plan: Patient Remains Critically Ill Patient Active Hospital Problem List: Cardiogenic shock ([facility]) Assessment: s/p valve in valve TAVR. On 0.02 Epi and 0.04 Norepi. 01/09 Continues on Epi. Off Levo Plan: Diurese via Bumex gtt with goal -1 to 2 L/shift, intermittent diuril Wean epi as per attending discretion Acute on chronic HFrEF (heart failure with reduced ejection fraction) ([facility]) Assessment: Post-op EF 35%. Presented in decompensated HF requiring Lasix gtt and CPAP vs BIPAP on admission Plan: Diurese via Bumex gtt, intermittent diuril Continue epi and wean as appropriate Maintain adequate SBP Follow up echo Restart Spironolactone FILIBERTO on CKD (chronic kidney disease) stage 3, GFR 30-59 ml/min ([facility]) Assessment: Cr baseline around 1.7, increased to 2.5 likely due to renal congestion from HF. Improved back to baseline with diuresis. Sightly worse this AM 01/09, but expected as he received contrast dye in OR. Plan: Continue diuresis Monitor UOP/BUN/Cr Avoid nephrotoxic agents and hypotension 01/08/23 TransCatheter Aortic Valve Replacement ([id number]-Swyfv, 26 Medtronic Evolut Pro, via the Left Transfemoral Approach) EF 35% Assessment: Porcine AVR ~10 years ago. Intubated and sedated on propofol. On Epi and Levo. Bruno inplace making adequate urine Plan: TAVR per unit protocol Monitor hemodynamics, VS, UOP CXR and labs per unit protocol Tylenol for pain Aggressive pulmonary toilet Progressive mobility ASA/Plavix/SQ Heparin Increase Trazodone to 100 mg QHS NSTEMI (non-ST elevated myocardial infarction) ([facility]) (12/28/2022), Coronary artery disease (12/28/2022) Assessment: CABG x 2 10 years ago. Presented to OSH on 12/29 with SOB and mid- chest pressure. Plan: ASA/Plavix/Statin Hold on BB given recent TAVR and high risk of HB Hyperlipidemia Assessment: On Rosuvastatin 20mg at home Plan: Statin Core Measures: ASA- Yes ACEI/ARB- No, Explain: On Epi Beta Ricardo- No, Explain: s/p TAVR, increased risk of HB Statin- Yes GI PPX- Yes DVT Prophylaxis (Chemical)- Yes Objective Data: Vitals Signs: Blood pressure 114/60, pulse 63, temperature 36.5 ??C (97.7 ??F), resp. rate 19, height 1.753 m, weight 124.6 kg, SpO2 91 %. Telem: NSR Patient was extubated within six hours of post operative admission to ICU Continuous Infusions: Dopamine: Epinephrine: Dose (mcg/kg/min): 0.02 mcg/kg/min Milrinone: Norepinephrine: Dose (mcg/min): 0 mcg/min Phenyleprhine: Vasopressin: Clevidipine: Labetalol: Nicardipine: Nitroglycerin: Fentanyl: Midazolam: Propofol: Dose (mcg/kg/min): 0 mcg/kg/min Precedex: Amiodarone: Diltiazem: Heparin: Insulin: I/O: Admit Weight: Weight: 124.6 kg Intake/Output Summary (Last 24 hours) at 01/09/2023 0004 Last data filed at 01/08/2023 2200 Gross per 24 hour Intake 1949.82 ml Output 1870 ml Net 79.82 ml 01/07 0700 - 01/08 1859 In: 2524.4 [P.O.:600; I.V.:1924.4] Out: 3595 [Urine:3595] Physical Exam: Neuro: follows commands, moves all extremities equally , Oriented to self and placed. Intermittently impulsive and confused. Eyes: Pupils are equal and round. Cardiovascular: Cardiac Exam: normal rate and rhythm, S1 and S2 normal, no murmurs Extremities: 2 + edema present ankle, extremities warm, perfusion normal, pulses normal Respiratory: rales RML, RLL, LLL Gastrointestinal:soft, nondistended, hypoactive bowel sounds Musculoskeletal: no erythema, induration, or nodules Integumentary: Skin color, texture, turgor normal. No rashes or lesions. Incision: Bilateral groins dry and intact, no hematoma Psych: affect normal Labs: Reviewed in EMR. Pertinent values have been incorporated in the assessment and plan. Studies: I have personally reviewed all chest x-rays, additional imaging, tracings, and studies along with their interpretation reports. Pertinent findings have been incorporated in the assessment and plan. Critical Care Time: I have spent 45 minutes providing critical care for this patient separate from any procedures or teaching. Electronically signed by: Shavon Mata PA-C 01/09/2023 * Gal Urban RCP - 01/08/2023 2:58 PM EDT Extubated to 6lpm NC without issues. * Gal Urban RCP - 01/08/2023 1:36 PM EDT Increased to PEEP 10 after ABG and CXR viewed, spo2 also only low 90s. Pt able to transition to PSVquickly. * Nidhi Humphrey PT - 01/08/2023 12:50 PM EDT Raghu Rosenthal acute PT orders were discontinued by medical team prior to meeting acute Physical Therapy goals; therefore discharge summary not completed. If needed, please refer to the therapist's initial recommendations made on initial evaluation, or see the last PT treatment note for most recent functional status. Nidhi Humphrey PT * Gal Urban RCP - 01/08/2023 12:41 PM EDT Pt from OR bagged w/ 100% o2, fully sedated. Placed on vent as documented. Dhruv well. Plan to titrate per CVICU protocol. * Anam Lewis PA-C - 01/08/2023 12:41 PM EDT CV Critical Care Progress Note Raghu Rosenthal 77yrs Male [id number] POD # 0 S/P TransCatheter Aortic Valve Replacement ([id number]-[id number], 26 Medtronic Evolut Pro, via the Left Transfemoral Approach) EF 35% Events over past 24 hours: Arrived from the OR at 12:20 intubated and sedated on propofol. No bloodproducts were required. Reversed by anesthesia. In NSR on Epi (0.02) and Norepi (0.04) for systolicblood pressure support. RIJ in place, no swan. Bruno in place and making adequate urine. Pre-operatively lasix drip started per attending. Sedation weaned and patient extubated. Follows commands and moves all extremities. Restrained for safety until extubated. Impression/Plan: Patient Remains Critically Ill Patient Active Hospital Problem List: Cardiogenic shock ([facility]) (01/08/2023) Assessment: s/p valve in valve TAVR. On 0.02 Epi and 0.04 Norepi Plan: Diurese via Lasix drip Wean epi as able Levo support for SBP > 100 Acute on chronic HFrEF (heart failure with reduced ejection fraction) ([facility]) (01/08/2023) Assessment: Post-op EF 35% Plan: Start IV Lasix Continue epi and wean as appropriate Maintain adequate SBP Follow up echo as outpatient 01/08/23 TransCatheter Aortic Valve Replacement ([id number]-[id number], 26 Medtronic Evolut Pro, via the Left Transfemoral Approach) EF 35% (01/08/2023) Assessment: Porcine AVR ~10 years ago. Intubated and sedated on propofol. On Epi and Levo. Bruno inplace making adequate urine Plan: TAVR per unit protocol Monitor hemodynamics, VS, UOP CXR and labs per unit protocol ERAS for pain control when appropriate NSTEMI (non-ST elevated myocardial infarction) (CMS/HCC) (12/28/2022), Coronary artery disease (12/28/2022) Assessment: CABG x 2 10 years ago. Presented to OSH on 12/29 with SOB and mid- chest pressure. Plan: ASA/Plavix/Statin/BB as appropriate Hypertension (12/28/2022) Assessment: Currently on Epi and Levo for SBP support Plan: Maintain SBP > 100- wean pressors as able Hyperlipidemia (12/28/2022) Assessment: On Rosuvastatin 20mg at home Plan: Restart statin Core Measures: ASA- Yes ACEI/ARB- No, Explain: on epi and levo Beta Ricardo- No, Explain: on epi and levo Statin- Yes GI PPX- Yes DVT Prophylaxis (Chemical)- No, Explain: immediately post op Objective Data: Vitals Signs: Blood pressure (!) 109/46, pulse 58, temperature (!) 36 ??C (96.8 ??F), temperature source Oral, resp. rate 20, height 1.753 m, weight 124.6 kg, SpO2 91 %. Ventilator: Telem: NSR Patient was extubated within six hours of post operative admission to ICU Continuous Infusions: Dopamine: Epinephrine: Dose (mcg/kg/min): 0.02 mcg/kg/min Milrinone: Norepinephrine: Dose (mcg/min): 4.904 mcg/min Phenyleprhine: Vasopressin: Clevidipine: Labetalol: Nicardipine: Nitroglycerin: Fentanyl: Midazolam: Propofol: Dose (mcg/kg/min): 40 mcg/kg/min Precedex: Amiodarone: Diltiazem: Heparin: Insulin: I/O: Admit Weight: Weight: 124.6 kg Intake/Output Summary (Last 24 hours) at 01/08/2023 1241 Last data filed at 01/08/2023 1134 Gross per 24 hour Intake 1533.4 ml Output 2550 ml Net -1016.6 ml 01/06 1900 - 01/08 0659 In: 1787.7 [P.O.:1560; I.V.:227.7] Out: 3975 [Urine:3975] Physical Exam: Neuro: Awake, alert and oriented x 3, follows commands, moves all extremities equally Eyes: Pupils are equal and round. Cardiovascular: Cardiac Exam: normal rate and rhythm, no rubs or gallops, Extremities: 2 + edema present ankle, extremities warm, perfusion normal, pulses normal Respiratory: rales RLL, diminished breath sounds in bases RLL, LLL Gastrointestinal:soft, nondistended, absent bowel sounds Musculoskeletal: no deformities present Integumentary: negatives: no lesions noted, temperature normal, texture normal, scattered ecchymosis on central abdomen Incision: Dressings are clean, dry, and intact. Psych: affect normal Labs: Reviewed in EMR. Pertinent values have been incorporated in the assessment and plan. Studies: I have personally reviewed all chest x-rays, additional imaging, tracings, and studies along with their interpretation reports. Pertinent findings have been incorporated in the assessment and plan. Critical Care Time: I have spent 60 minutes providing critical care for this patient separate from any procedures or teaching. Electronically signed by: Anam Lewis PA-C 01/08/2023 * Tania Hartley MD - 01/08/2023 7:32 AM EDT Cardiac Surgery Plan to proceed with high risk Valve in Valve TAVR with Left Main Protection. Patient and family understands the risks. Saundra Hartley MD * Franko Talavera RN - 01/08/2023 6:33 AM EDT Shift Summary: NPO since midnight. No acute changes this shift, SBAR given to [employer]BI[employer] PAR[employer]ICAL EXAMINER. * Kendra Whitehead RDN - 01/07/2023 12:26 PM EDT Patient: Raghu Rosenthal Today's Date / Time: 01/07/2023 / 12:26 PM Room/Bed: 433/433 LOS: 9 days Initial Nutrition Assessment Contact: Clinical RDN [facility] Nutrition Interventions & Recommendations for Provider Recommend liberalizing diet to 2 g Na to increase menu options and promote po intake. Recommend adding thera-m supplement to maximize micronutrient intake. RDN ordered trial of Ensure Max once daily and Magic Cup once daily. Recommended Malnutrition Diagnosis At risk for Malnutrition (01/07/23) Nutrition Assessment Problem/PMH: 77 yo male who presented with complaints of SOB and midchest pressure. PMH includes CAD, HTN, HLD, AVR. Current Status: LOS. Visited and spoke with pt. Pt reports poor appetite x ~2 weeks (including admission). Weight stable since admit per chart. NFPE completed, no fat/muscle wasting noted. Pt agreeable to ONS. Per notes, CTS following- planning for Linda TAVR on 01/08. Reason for Visit: Length of Stay Contact with Patient: Visited Food Insecurity: Unable to Assess (01/07/23) Anthropometric Measurements Admit Weight: 121.7 kg Current Weight: 122.6 kg Height: 175.3 cm BMI: 39.896 [place] Body Weight (kg) (Nutrition): 73 Nutrition Focused Physical Findings/Exam Skin: no skin breakdown documented Diet Order: Heart Healthy + 1.5 L fluid Feeding Route: po Intake/Output: Net -7.1 L since admit, 2x BM, -1.5 L UOP Nutrition Intake: 0-50% of meals Nutrition Adequacy: Not Meeting Needs Barriers To Nutrition Intake: Poor Appetite Meds/Supplements: Vit D3, lasix, renvela Labs: Na 129, Cl 93, BUN 104, Creat 2.06, GFR 33, FSBS 120-136 Comparative Standards Protein Needs: 146 g/day (2 g/kg IBW) Calorie Needs: 9566-0659 kcal/day (22-25 kcal/kg IBW) Fluid Needs: per MD Nutrition Diagnosis Oral or Nutrition Support Intake; Inadequate oral intake (NI-2.1) related to poor appetite as evidenced by documented po intake. Nutrition Monitoring Nutrition intake/modality, GI function, skin integrity, wt/fluid trends, labs, meds, and plan of care Follow-up Date: 01/11/23 Clinical RDN Name: Kendra Whitehead MS, RDN, LDN * Ben Araujo PA-C - 01/07/2023 10:21 AM EDT Cardiothoracic Surgery Consult Progress Note 01/07/2023 Raghu Rosenthal [id number] Referring MD: Williams Yip MD Consulting Surgeon: Dr. Hartley Consult For: Severe aortic valve stenosis due to degenerative calcification of a bioprosthetic valve Events past 24 hours: Remains stable on on CICU. Currently on 5 L NC but can likely down titrate. Adequate UOP on current dose of Lasix gtt 20 mg/hr but net even for 24 hours. Will likely need more diuresis today. NA stable at 129. Cr stable ~2 today. Seen at bedside by Dr. Hartley. Bilateral groinswith no active infectious process but large pannus in place. Subjective: Reports SOB is still persistent but improving. Looking forward to procedure tomorrow. 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 Thrombocytopenia, unspecified ([facility]) D69.6 Sensorineural hearing loss, bilateral H90.3 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 Arthropathic psoriasis, unspecified ([facility]) L40.50 Posttraumatic stress disorder F43.10 Postsurgical aortocoronary bypass status Z95.1 Patient under care of multiple providers Z78.9 Palpitations R00.2 Other ill-defined and unknown causes of morbidity and mortality R69 Pain in right shoulder M25.511 Obesity E66.9 Obstructive sleep apnea syndrome in adult G47.33 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 Mild intermittent asthma J45.20 Encounter for other procedures for purposes other than remedying health state Z41.8 Encounter for immunization Z23 Depressive disorder F32.A Encounter for screening for eye and ear disorders Z13.5 Contact dermatitis and other eczema L25.9 Chronic rhinitis J31.0 Cerebellar stroke syndrome G46.4 Plan: OR tomorrow with Dr Hartley TAVR 1st case going to CVICU afterwards NPO after midnight and All preop orders place Continue diuresis and weaning O2 Consents signed, STS score reviewed Avoid SHERMAN/ARB/Lovenox 24 hours prior to surgical procedure All other orders per primary/cardiology teams Objective: Vital Signs BP: 97/59 Patient Position for VS: Sitting Upright Pulse: 77 Resp: (!) 22 Temp: 36.5 ??C (97.7 ??F) Temp Source: Axillary Weight: 122.6 kg Height: 175.3 cm BMI: 39.895 BSA (Calculated - sq m): 2.44 sq meters Pain Intensity Numbers Scale: 0 - No Pain Pain Location: upper mid back Body mass index is 39.9 kg/m??. Intake/Output Summary (Last 24 hours) at 01/07/2023 1021 Last data filed at 01/07/2023 0900 Gross per 24 hour Intake 1404.29 ml Output 1550 ml Net -145.71 ml Physical Exam Constitutional: He is oriented to person, place, and time. No distress. HENT: Head: Normocephalic and atraumatic. Eyes: Conjunctivae are normal. Cardiovascular: Normal rate, regular rhythm and normal pulses. Murmur heard. Pulmonary/Chest: Effort normal and breath sounds normal. Abdominal: Soft. Bowel sounds are normal. Large abdominal pannus Musculoskeletal: General: Normal range of motion. Cervical back: Normal range of motion. Right lower leg: No edema. Left lower leg: No edema. Neurological: He is alert and oriented to person, place, and time. Skin: Skin is warm. Capillary refill takes 2 to 3 seconds. Psychiatric: His behavior is normal. Mood, judgment and thought content normal. Vitals reviewed. Results for orders placed or performed during the hospital encounter of 12/28/22 (from the past 24 hour(s)) BASIC METABOLIC PANEL Collection Time: 01/06/23 11:35 PM Test Value Low-High BUN 104 (H) 8 - 26 mg/dL Sodium 129 (L) 136 - 145 mEq/L Potassium 4.1 3.5 - 4.5 mEq/L Chloride 93 (L) 98 - 107 mEq/L CO2 24 23 - 31 mEq/L Anion Gap 12 4 - 12 mEq/L Glucose 111 (H) 70 - 105 mg/dL Creatinine 2.06 (H) 0.72 - 1.25 mg/dL Glomerular Filtration Rate 33 (L) >=59 mL/Min/1.73 m2 Calcium 8.5 8.4 - 10.2 mg/dL Osmo (Calc'd) 305 mOsm/kg Bun:Creat Ratio 50.49 (PANEL)-CBC WITH DIFFERENTIAL Collection Time: 01/06/23 11:35 PM Narrative The following orders were created for panel order (PANEL)-CBC WITH DIFFERENTIAL. Procedure Abnormality Status --------- ------ CBC WITH DIFFERENTIAL[[id number]] Abnormal Final result Please view results for these tests on the individual orders. MAGNESIUM Collection Time: 01/06/23 11:35 PM Test Value Low-High Magnesium 2.2 1.6 - 2.6 mg/dL PHOSPHORUS Collection Time: 01/06/23 11:35 PM Test Value Low-High Phosphorus 4.5 2.3 - 4.7 mg/dL CBC WITH DIFFERENTIAL Collection Time: 01/06/23 11:35 PM Test Value Low-High WBC (White Blood Cell Count) 5.23 4.50 - 11.00 k/uL RBC (Red Blood Cell Count) 3.16 (L) 4.40 - 5.90 M/uL Hemoglobin 9.9 (L) 13.0 - 18.0 g/dL Hematocrit 30.6 (L) 40.0 - 52.0 % MCV (Mean Corpuscular Volume) 96.8 80.0 - 100.0 fL MCH (Mean Corpuscular Hemoglobin) 31.3 26.0 - 34.0 pg MCHC (Mean Corpuscular Hemoglobin Concentration) 32.4 32.0 - 36.0 g/dL RDW (Red Cell Distribution Width) 16.9 (H) 11.5 - 14.5 % Platelet Count 146 (L) 150 - 440 k/uL MPV (Mean Platelet Volume) 10.1 7.4 - 10.6 fL Nucleated RBC 0.8 (H) 0 /100 WBC Absolute Nucleated RBC (#) 0.04 (H) 0 k/uL Neutrophils (%) 70 % Lymphocytes (%) 11 % Monocytes (%) 8 % Eosinophils (%) 10 % Basophils (%) 0 % Immature Granulocytes (%) 1 % Absolute Neutrophils (#) 3.70 1.80 - 7.70 k/uL Absolute Lymphocytes (#) 0.56 (L) 1.00 - 4.80 k/uL Absolute Monocytes (#) 0.40 0.00 - 0.80 k/uL Absolute Eosinophils (#) 0.52 (H) 0.00 - 0.50 k/uL Absolute Basophils (#) 0.01 0.00 - 0.20 k/uL Absolute Immature Granulocytes (#) 0.04 (H) 0 k/uL TYPE & SCREEN Collection Time: 01/07/23 5:37 AM Test Value Low-High ABO GROUP AB RH TYPE Positive AB SCREEN Negative Results for orders placed or performed during the hospital encounter of 12/28/22 (from the past 168hour(s)) XRAY CHEST 1 VIEW Collection Time: 01/01/23 8:04 AM Narrative History: Shortness of breath. Comparison: Chest radiograph performed on 12/28/2022. Chest CT performed on 12/30/2022. Technique: Portable AP chest radiograph. Impression Findings/impression: Progressive heterogeneous right upper lobe airspace opacity, likely pneumonia with differential to include asymmetric pulmonary edema. No other interval changes. Stable cardiomegaly and pulmonary vascular congestion. No large pleural effusions. Reading Doctor: Ean Berumen Electronic Signature by: Ean Berumen VAT US GUIDED PERIPHERAL IV PLACEMENT Collection Time: 01/01/23 11:55 PM Narrative Impression: The Peripheral IV line was placed by the Vascular Access Team (VAT). Please see progress notes for full report. XRAY CHEST 1 VIEW Collection Time: 01/03/23 10:09 AM Narrative Exam: Single view of the chest. Date of exam: 01/03/2023 at 1006. Indications: Hypoxia Comparison: 01/01/2023. Impression Findings and impression: Stable bilateral pulmonary opacities. Stable small bilateral pleural effusions. No pneumothorax. Stable enlargement of the cardiac silhouette. Reading Doctor: Skylar Robbins Electronic Signature by: Skylar Robbins VAT US GUIDED PERIPHERAL IV PLACEMENT Collection Time: 01/06/23 11:00 PM Narrative Impression: The Peripheral IV line was placed by the Vascular Access Team (VAT). Please see progress notes for full report. Ben Araujo PA-C Department [place] [address] Service Pager [phone] Electronically signed by Ben Araujo PA-C 01/07/2023 10:21 AM * Michael Hernandez DO - 01/07/2023 6:55 AM EDT Images from the original note were not included. Cardiac Critical Care Progress Note Michael Talleyrmduniajamal, Date: 01/07/2023, 6:55 AM LOC:[id number]/[id number] Raghu Rosenthal 1945 Hosp day:9 days Referring MD: Williams Yip MD ICU Day: # 2 Code Status: Full Code Chief Complaint: Severe Narrative/Overnight/ROS: (History and SOAP notes have been reviewed in the EMR) 01/05/23: No acute events reported overnight. Patient resting comfortably in chair with no new complaints. 2.2 L UOP yesterday. 01/06/23: No acute events reported overnight. Complaining of low back pain this morning. He reportssignificant dyspnea on exertion when he walked to the door yesterday. 01/07/23: Patient more dyspneic overnight and was given additional dose of Lasix and wore BiPAP. Still has low back pain. Hospital Course: Raghu Rosenthal is a 77yrs Male with PMH of CAD s/p CABG x2 in [place] 10 years ago, HTN, HLD, porcine AVR who initially presented to [place] ED with complaints of SOB and midchest pressure. Patient lives in [place] with his , and is visiting [facility] for the next 3 months. He recently had a [facility]. Following this procedure he had worsening SOB associated with fatigue, malaise and generalized weakness. EMS was called and he was brought to [place] ED. On arrival he was noted to be in mild respiratory distress and required bipap. WBC of 19. EKG without NUNO, troponin 1.197. CXR consistent with mild interstitial edema, and a small left pleural effusion. He was given nitro sublingual and morphine, and started on BID lovenox. He was admitted to the ICU at [place]. He was started on empiric vanc, cefepime for possible infection. He was hypotensive requiring levophed with a differential of cardiogenic vs septic shock. He had a repeat EKG done on 12/28 with a new LBBB. His troponin trended as high as 39. Given concerns for acute coronary syndrome, he was transferred to [facility] for further management. On arrival to CICU, patient is awake and alert. He is on low dose levophed. He is warm to the touchand appears well perfused. POCUS with EF visually estimated at 45%. Breathing comfortably on room air. He underwent a /[facility] 12/28/2022 showin. Severe three-vessel disease with patent AVERY to LAD, intermediate stenosis in mid RCA, 60% distal left main stenosis. Culprit for his VA appears to be an occluded SVG to ramus graft. There is flowin the ramus with proximal 70% stenosis. 2. He is also noted to have severely degenerated bioprosthetic aortic valve, invasive gradients reviewed severely stenotic with mean gradient over 40 mmHg. 3. Decompensated heart failure with preserved cardiac output. We had discontinued his Levophed on arrival to the [facility]. LVEDP 30mmHg. Right heart catheterization: RA:14 RV:55/10 PA: 54/23(35) PCWP:25 Pa sat:56% Ra Sat:56% Aortic valve gradient: 48mmHg mean grad CHELITA: 0.75cm2 Cardiac output was 5.5, cardiac index is 2.3 Since being admitted, patient was treated for cardiogenic shock and noted to have severe bioprosthetic aortic valve stenosis with plans for valve in valve TAVR. This morning, he was complaining of chest pain. Active Hospital Problems: Active Hospital Problems Diagnosis *Acute coronary syndrome ([facility]) NSTEMI (non-ST elevated myocardial infarction) ([facility]) Shock ([facility]) Hypertension Hyperlipidemia Coronary artery disease Cardiogenic shock, resolved NSTEMI HFrEF with EF 41% - Patient initially presenting with cardiogenic shock and reduced EF on 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 years ago - continue GDMT with aspirin and Tricor (intolerance to statins) - increase lasix drip from 20 to 25 and monitor UOP - continue to monitor electrolytes and replete PRN Severe aortic stenosis Degenerated bioprosthetic aortic valve - CT surgery involved and planning for Linda TAVR on 01/08/23 - avoid beta blockers and calcium channel blockers in the preload dependent state Acute hypoxic respiratory failure - currently on 5L NC likely related to pulmonary edema and - wean FiO2 as tolerated - continue Duonebs q4h PRN, IS, OOB as tolerated FILIBERTO on CKD II - creatinine was steadily increasing since admission but has stabilized - UOP improved yesterday, continue to monitor - continue diuresis as above Hypertension - holding home antihypertensives Hyperlipidemia - holding statin due to intolerance Chronic back pain - Tylenol prn, lidocaine patch CICU Daily Rounding Checklist 1. Lines/Tubes/Drains -Bruno: no -CVC: no -Art line: no -Other: N/a 2. SBT/SAT: N/A 3. Nutrition Status: Nutrition Therapy Room Service Assistance Needed 4. Glycemic Control: -111 mg/dL (01/06 2335) -12/28/2022: Hemoglobin A1C 5.0 % -N/A 5. Mobility Status - GEMS: Mobility Level 3- Standing activities with assist - PT/OT:no 6. DVT Prophylaxis: Heparin 7. PUD Prophylaxis: N/A 8. CAM ICU Score: Delirium Assessment CAM-ICU Acute Change or Fluctuating Course of Mental Status: No CAM-ICU Score: Negative -Interventions N/A 9. Current antibiotics: None Most Recent Restraint Order (From admission, onward) None Medications: SCHEDULED MEDICATIONS [Held by Provider] amLODIPine, 10 mg, DAILY aspirin, 81 mg, DAILY AT 0800 cholecalciferol, 1,000 Units, DAILY escitalopram, 20 mg, DAILY fenofibrate, 145 mg, WITH BREAKFAST gabapentin, 100 mg, QHS hepARIN subcutaneous injection, 7,500 Units, Q8HR [Held by Provider] hydroCHLOROthiazide, 25 mg, DAILY lidocaine, 1 Patch, DAILY [Held by Provider] losartan, 100 mg, DAILY melatonin, 5 mg, QHS sevelamer carbonate, 0.8 g, TID-WITH MEALS [Held by Provider] spironolactone, 25 mg, DAILY [Held by Provider] tiotropium, 1 Capsule, RTDAILY furosemide, Last Rate: 20 mg/hr (01/07/23 0600) PRN Inpatient Medications: acetaminophen liquid, 650 mg, C2OJ-MAD albuterol, 2.5 mg, Q9DR-AHD ondansetron, 4 mg, [id number]-[id number] Echo : ECHO Result Date: 12/28/2022 Reason for Exam: Chest Pain Date of Service: 12/28/2022 Interpretation Summary There is no comparison study available. Patient Height 175.0 cm Patient Weight 127.0 kg Systolic Pressure 132 mmHg Diastolic Pressure 53 mmHg Study Location ECH BSA 2.4 m^2 Procedure: A complete two-dimensional transthoracic echocardiogram was performed (2D, M-mode, spectral and color flow Doppler). Study Quality: Fair. The study was technically difficult with many images being suboptimal in quality. A contrast injection of Definity was performed to improve assessment of LV function. Left Ventricle: The left ventricular mass index is increased. There is mild concentric left ventricular hypertrophy. LVEDV 299 ml with BSA 2.4 m2 The ejection fraction measured by 2D BP MOD is41%. The LV ejection fraction is severely decreased. Akinesis of the apex and periapical segments, anteroseptum with better motion of the LV base representing, until proven otherwise, LAD territory issues on a background of moderate aortic stenosis. There is no thrombus. LV diastolic function can not be accurately assessed. E/E' averaged>13 Left Atrium: The left atrial volume is mildly increased. Right Atrium: Right atrial size is normal. Right Ventricle: The right ventricular systolic function is normal. Aortic Valve: Focal calcification. The aortic valve is not well visualized. The peak aortic valve velocity 385 cm/s. Aortic mean pressure gradient= 32 mmHg. The aortic valve velocity ratio was calculated at 0.27. Mitral Valve: Both leaflets are pliable and mobile. There is trace mitral regurgitation. Tricuspid Valve: The tricuspid valve is not well visualized. There was insufficient TR detected to calculate RV systolic pr essure. Pulmonic Valve: The pulmonic valve is not well visualized. Trace pulmonic valvular regurgitation. Arteries: The aortic root is normal size. There is aortic root sclerosis/calcification. Aortic arch not seen well. Venous: Severely dilated inferior vena cava. Pericardium/Pleura: There is no pericardial effusion. MMode 2D Measurements & Calculations IVSd - 1.2 cm LVIDd - 5.9 cm LVIDs - 4.7 cm LVPWd - 1.1 cm IVS/LVPW - 1.1 FS - 20.9 % EDV(Teich) - 172.5 ml ESV(Teich) - 100.2 ml EF(Teich) - 41.9 % EF (est.) - 41.1 % EDV(cubed) - 204.3 ml ESV(cubed) - 101 ml EF(cubed) - 50.6 % LV mass(C)d - 277.7 grams LV mass(C)dI - 116.6 grams/m^2 SV(Teich) - 72.4 ml SI(Teich) - 30.4 ml/m^2 SV(cubed) - 103.3 ml SI(cubed) - 43.4 ml/m^2 Ao root diam - 3.4 cm Ao root area - 9.3 cm^2 LA dimension - 4.7 cm LA/Ao - 1.4 LVLd ap4 - 11.6 cm EDV(MOD-sp4) - 289 ml LVLs ap4 - 10.1 cm ESV(MOD-sp4) - 176 ml EF(MOD-sp4) - 39.1 % LVLd ap2 - 11.3 cm EDV(MOD- sp2) - 302 ml LVLs ap2 - 10.1 cm ESV(MOD-sp2) - 176 ml EF(MOD-sp2) - 41.7 % SV(MOD-sp4) - 113 ml SI(MOD-sp4) - 47.5 ml/m^2 SV(MOD-sp2) - 126 ml SI(MOD-sp2) - 52.9 ml/m^2 Doppler Measurements & Calculations MV E max bee - 93.3 cm/sec MV A max bee - 113.7 cm/sec MV E/A - 0.82 MV dec time - 0.17 sec Ao V2 max - 330.8 cm/sec Ao max PG - 46.5 mmHg Ao max PG (full) - 42.4 mmHg Ao V2 mean - 223.4 cm/sec Ao mean PG - 24.8 mmHg Ao mean PG (full) - 22.8 mmHg Ao V2 VTI - 64.6 cm LVOT max gradient - 4.2 mmHg LV V1 mean PG - 2 mmHg LVOT max bee - 101.7 cm/sec LV V1 mean - 68.2 cm/sec LV V1 VTI - 20.4 cm SV(Ao) - 600 ml SI(Ao) - 252 ml/m^2 PA V2 max - 121.7 cm/sec PA max PG - 5.9 mmHg Conclusion The study was technically difficult with many images beingsuboptimal in quality. The left ventricular mass index is increased. E/E' averaged >13 The ejection fraction measured by 2D BP MOD is41%. Akinesis of the apex and periapical segments, anteroseptumwith better motion of the LV base representing, until proven otherwise, LAD territory issues on a background of moderate aortic stenosis. InterpretingPhysician:Interpreting Physician: Papi Delcid, electronically signed on 2022-12-28 16:16:52.52 Physical Examination: VItals: BP 113/59 Pulse 78 Temp 36.1 ??C (96.9 ??F) Resp (!) 22 Ht 1.753 m Wt 122.6 kg SpO2 96% BMI 39.90 kg/m?? Temp (24hrs), Av.4 ??C (97.5 ??F), Min:36.1 ??C (96.9 ??F), Max:36.7 ??C (98.1 ??F) Ventilation: Resp: (!) 22 SpO2: 96 % O2 Mode: Nasal Cannula Or Prongs O2 Frequency: Continuous Telemetry: NSR Intake/Output Summary (Last 24 hours) at 01/07/2023 0655 Last data filed at 01/07/2023 0600 Gross per 24 hour Intake 1669.49 ml Output 1400 ml Net 269.49 ml Body mass index is 39.9 kg/m??. Constitutional: alert, oriented times four and well nourished, well developed, and in no distress HENT: normocephalic, atraumatic, + JVD, no carotid bruits, trachea midline and normal to palpitation EYES: Both eyes: conjunctivae and sclerae clear, pupils equal, round, reactive to light and accommodation, EOM's intact CV: S1 and S2 normal, no murmurs, no gallops, no extra heart sounds, 2+ pulses. 2+ edema noted. Pulm: Lung sounds clear to auscultation, respiratory rate and rhythm regular, conversational dyspnea persists GI: Bowel sounds normal. Abdomen soft, non-tender. No masses, No organomegaly Musculoskeletal: No clubbing, cyanosis, inflammatory changes. No joint deformity, swelling or tenderness. Skin: Skin color, texture, turgor normal. No rashes or lesions. Neurological: negative findings: speech normal, mental status intact Wound/Stage: No wound Psychiatric: Alert, oriented to person, place, time, and situation LAB: REVIEWED IN EMR, PERTINENT VALUES, AND DECISION MAKING, ARE INCORPORATED IN ASSESSMENT AND PLAN STUDIES: IMAGES HAVE BEEN PERSONALLY INTERPRETED IN PACS, RADIOLOGY REPORTS HAVE BEEN REVIEWED DECISION MAKING INCORPORATED INTO THE ASSESSMENT AND PLAN Patient was seen and evaluated with Maxwell Morgan MD. Plan of care was reviewed in detail. Electronically signed by Michael Hernandez DO Associated attestation - Maxwell Smith MD - 01/07/2023 12:38 PM EDT Cardiac ICU Attending Note: 01/07/23 The patient's history and care were reviewed with Dr. Hernandez [facility] I have seen and examined the patient and confirmed their findings. I have reviewed the medical record including pertinent radiographs and laboratory results. I agree with the management as outlined in their note and discussed on rounds with additions and amendments per my note. Reason for ICU Admission: Severe Patient Summary: 77yrs old Male with PMH significant for HTN, HLD, CABG x 2, severe s/p porcine AVR (~10 years ago) who presented to [facility] CICU on 01/04/22 for volume optimization prior to valve in valve TAVR scheduled on 01/08/23. Last 24 hours: Noted to have dyspnea requiring additional diuresis and BiPAP trial. Labs and Imaging reviewed Assessment and Plan: 1. Acute hypoxemic respiratory failure secondary to severe with HFrEF 2. Significant cardiac co-morbidities: HTN, HLD, CABG x 2, severe s/p porcine AVR (~10 years ago) 3. Acute Kidney injury on CKD Plan: Continue cautious diuresis: increase lasix gtt for negative balance (patient is pre-load dependent) Pressors: Levophed PRN for goal MAP > 65 Monitor BMP, UOP, lytes; replete PRN CTS on board: plan for valve in valve TAVR on 01/08/23 Obtain coagulation studies prior to TAVR FEN: Cardiac Diet Prophylaxis: heparin Family updated. Full Code Disposition: patient remains critically ill, continue current level of care. This patient is critically ill with significant potential for decline. 32 minutes critical care time spent excluding teaching and procedures. Maxwell Smith MD [employer] intern Division of Pulmonary, Critical Care and Sleep Medicine [employer], [facility] * Franko Talavera RN - 01/07/2023 6:42 AM EDT Shift Summary: No acute changes this shift. Will report to oncoming RN. * Any Kwong RCP - 01/06/2023 9:58 PM EDT Assisting unit W[employer] ENGINE[employer] HELPER. Called by RN to place patient on bipap d/t increased WOB. Upon arrival patient tachpneic, speaking short sentences, c/o discomfort in chest. Patient placed on C1 as documented. Improvement noted in WOB. Patient resting at this time. Will monitor. * Tania Hartley MD - 01/06/2023 11:17 AM EDT Structural Heart - Cardiac Surgery Patient was sitting on the side of his bed and improved. Appreciate the help by CICU Team. He will need to lay flat in the OR without being intubated for TAVR on Sunday, so please continue diuresis as possible. We will also need his Na 130 if possible. I discussed the high risk procedure again with the patient and his family. Saundra Hartley MD * Michael Luna RN - 01/06/2023 7:51 AM EDT Reviewed with patient and family * Michael Hernandez DO - 01/06/2023 6:44 AM EDT Images from the original note were not included. Cardiac Critical Care Progress Note Michael Hernandez DO Date: 01/06/2023, 6:44 AM LOC:[id number] N# [id number] Raghu Rosenthal 1945 Hosp day:8 days Referring MD: Williams Yip MD ICU Day: # 2 Code Status: Full Code Chief Complaint: Severe Narrative/Overnight/ROS: (History and SOAP notes have been reviewed in the EMR) 01/05/23: No acute events reported overnight. Patient resting comfortably in chair with no new complaints. 2.2 L UOP yesterday. 01/06/23: No acute events reported overnight. Complaining of low back pain this morning. He reportssignificant dyspnea on exertion when he walked to the door yesterday. Hospital Course: Raghu Rosenthal is a 77yrs Male with PMH of CAD s/p CABG x2 in [place] 10 years ago, HTN, HLD, porcine AVR who initially presented to [place] ED with complaints of SOB and midchest pressure. Patient lives in [place] with his , and is visiting [facility] for the next 3 months. He [facility]. Following this procedure he had worsening SOB associated with fatigue, malaise and generalized weakness. EMS was called and he was brought to [place] ED. On arrival he was noted to be in mild respiratory distress and required bipap. WBC of 19. EKG without NUNO, troponin 1.197. CXR consistent with mild interstitial edema, and a small left pleural effusion. He was given nitro sublingual and morphine, and started on BID lovenox. He was admitted to the ICU at [place]. He was started on empiric vanc, cefepime for possible infection. He was hypotensive requiring levophed with a differential of cardiogenic vs septic shock. He had a repeat EKG done on 12/28 with a new LBBB. His troponin trended as high as 39. Given concerns for acute coronary syndrome, he was transferred to [facility] for further management. On arrival to CICU, patient is awake and alert. He is on low dose levophed. He is warm to the touchand appears well perfused. POCUS with EF visually estimated at 45%. Breathing comfortably on room air. He underwent a R/LHC 12/28/2022 showin. Severe three-vessel disease with patent AVERY to LAD, intermediate stenosis in mid RCA, 60% distal left main stenosis. Culprit for his VA appears to be an occluded SVG to ramus graft. There is flowin the ramus with proximal 70% stenosis. 2. He is also noted to have severely degenerated bioprosthetic aortic valve, invasive gradients reviewed severely stenotic with mean gradient over 40 mmHg. 3. Decompensated heart failure with preserved cardiac output. We had discontinued his Levophed on arrival to the [facility] [employer]. LVEDP 30mmHg. Right heart catheterization: RA:14 RV:55/10 PA: 54/23(35) PCWP:25 Pa sat:56% Ra Sat:56% Aortic valve gradient: 48mmHg mean grad CHELITA: 0.75cm2 Cardiac output was 5.5, cardiac index is 2.3 Since being admitted, patient was treated for cardiogenic shock and noted to have severe bioprosthetic aortic valve stenosis with plans for valve in valve TAVR. This morning, he was complaining of chest pain. Active Hospital Problems: Active Hospital Problems Diagnosis *Acute coronary syndrome (CMS/HCC) NSTEMI (non-ST elevated myocardial infarction) (CMS/HCC) Shock (CMS/HCC) Hypertension Hyperlipidemia Coronary artery disease Cardiogenic shock, resolved NSTEMI HFrEF with EF 41% - Patient initially presenting with cardiogenic shock and reduced EF on 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 years ago - continue GDMT with aspirin and Tricor (intolerance to statins) - continue lasix drip and monitor UOP - continue to monitor electrolytes Severe aortic stenosis Degenerated bioprosthetic aortic valve - CT surgery involved and planning for Linda TAVR on 01/08/23 - avoid beta blockers and calcium channel blockers in the preload dependent state Acute hypoxic respiratory failure - currently on 5L NC likely related to pulmonary edema and - wean FiO2 as tolerated - continue Duonebs q4h PRN, IS, OOB as tolerated FILIBERTO on CKD II - creatinine was steadily increasing since admission but has stabilized - UOP improved yesterday, continue to monitor - continue diuresis as above Hypertension - holding home antihypertensives Hyperlipidemia - holding statin due to intolerance Chronic back pain - Tylenol prn, lidocaine patch CICU Daily Rounding Checklist 1. Lines/Tubes/Drains -Bruno: no -CVC: no -Art line: no -Other: N/a 2. SBT/SAT: N/A 3. Nutrition Status: Nutrition Therapy Room Service Assistance Needed 4. Glycemic Control: -130 mg/dL (01/06 0212) -12/28/2022: Hemoglobin A1C 5.0 % -N/A 5. Mobility Status - GEMS: Mobility Level 3- Standing activities with assist - PT/OT:no 6. DVT Prophylaxis: Heparin 7. PUD Prophylaxis: N/A 8. CAM ICU Score: Delirium Assessment CAM-ICU Acute Change or Fluctuating Course of Mental Status: No CAM-ICU Score: Negative -Interventions N/A 9. Current antibiotics: None Most Recent Restraint Order (From admission, onward) None Medications: SCHEDULED MEDICATIONS [Held by Provider] amLODIPine, 10 mg, DAILY aspirin, 81 mg, DAILY AT 0800 cholecalciferol, 1,000 Units, DAILY escitalopram, 20 mg, DAILY fenofibrate, 145 mg, WITH BREAKFAST gabapentin, 100 mg, QHS hepARIN subcutaneous injection, 7,500 Units, Q8HR [Held by Provider] hydroCHLOROthiazide, 25 mg, DAILY lidocaine, 1 Patch, DAILY [Held by Provider] losartan, 100 mg, DAILY melatonin, 5 mg, QHS sevelamer carbonate, 0.8 g, TID-WITH MEALS [Held by Provider] spironolactone, 25 mg, DAILY [Held by Provider] tiotropium, 1 Capsule, RTDAILY furosemide, Last Rate: 20 mg/hr (01/06/23 0600) PRN Inpatient Medications: acetaminophen liquid, 650 mg, Q1WJ-PUG albuterol, 2.5 mg, N2CE-XHD ondansetron, 4 mg, [id number] Echo : ECHO Result Date: 12/28/2022 Reason for Exam: Chest Pain Date of Service: 12/28/2022 Interpretation Summary There is no comparison study available. Patient Height 175.0 cm Patient Weight 127.0 kg Systolic Pressure 132 mmHg Diastolic Pressure 53 mmHg Study Location ECH BSA 2.4 m^2 Procedure: A complete two-dimensional transthoracic echocardiogram was performed (2D, M-mode, spectral and color flow Doppler). Study Quality: Fair. The study was technically difficult with many images being suboptimal in quality. A contrast injection of Definity was performed to improve assessment of LV function. Left Ventricle: The left ventricular mass index is increased. There is mild concentric left ventricular hypertrophy. LVEDV 299 ml with BSA 2.4 m2 The ejection fraction measured by 2D BP MOD is41%. The LV ejection fraction is severely decreased. Akinesis of the apex and periapical segments, anteroseptum with better motion of the LV base representing, until proven otherwise, LAD territory issues on a background of moderate aortic stenosis. There is no thrombus. LV diastolic function can not be accurately assessed. E/E' averaged>13 Left Atrium: The left atrial volume is mildly increased. Right Atrium: Right atrial size is normal. Right Ventricle: The right ventricular systolic function is normal. Aortic Valve: Focal calcification. The aortic valve is not well visualized. The peak aortic valve velocity 385 cm/s. Aortic mean pressure gradient= 32 mmHg. The aortic valve velocity ratio was calculated at 0.27. Mitral Valve: Both leaflets are pliable and mobile. There is trace mitral regurgitation. Tricuspid Valve: The tricuspid valve is not well visualized. There was insufficient TR detected to calculate RV systolic pr essure. Pulmonic Valve: The pulmonic valve is not well visualized. Trace pulmonic valvular regurgitation. Arteries: The aortic root is normal size. There is aortic root sclerosis/calcification. Aortic arch not seen well. Venous: Severely dilated inferior vena cava. Pericardium/Pleura: There is no pericardial effusion. MMode 2D Measurements & Calculations IVSd - 1.2 cm LVIDd - 5.9 cm LVIDs - 4.7 cm LVPWd - 1.1 cm IVS/LVPW - 1.1 FS - 20.9 % EDV(Teich) - 172.5 ml ESV(Teich) - 100.2 ml EF(Teich) - 41.9 % EF (est.) - 41.1 % EDV(cubed) - 204.3 ml ESV(cubed) - 101 ml EF(cubed) - 50.6 % LV mass(C)d - 277.7 grams LV mass(C)dI - 116.6 grams/m^2 SV(Teich) - 72.4 ml SI(Teich) - 30.4 ml/m^2 SV(cubed) - 103.3 ml SI(cubed) - 43.4 ml/m^2 Ao root diam - 3.4 cm Ao root area - 9.3 cm^2 LA dimension - 4.7 cm LA/Ao - 1.4 LVLd ap4 - 11.6 cm EDV(MOD-sp4) - 289 ml LVLs ap4 - 10.1 cm ESV(MOD-sp4) - 176 ml EF(MOD-sp4) - 39.1 % LVLd ap2 - 11.3 cm EDV(MOD- sp2) - 302 ml LVLs ap2 - 10.1 cm ESV(MOD-sp2) - 176 ml EF(MOD-sp2) - 41.7 % SV(MOD-sp4) - 113 ml SI(MOD-sp4) - 47.5 ml/m^2 SV(MOD-sp2) - 126 ml SI(MOD-sp2) - 52.9 ml/m^2 Doppler Measurements & Calculations MV E max bee - 93.3 cm/sec MV A max bee - 113.7 cm/sec MV E/A - 0.82 MV dec time - 0.17 sec Ao V2 max - 330.8 cm/sec Ao max PG - 46.5 mmHg Ao max PG (full) - 42.4 mmHg Ao V2 mean - 223.4 cm/sec Ao mean PG - 24.8 mmHg Ao mean PG (full) - 22.8 mmHg Ao V2 VTI - 64.6 cm LVOT max gradient - 4.2 mmHg LV V1 mean PG - 2 mmHg LVOT max bee - 101.7 cm/sec LV V1 mean - 68.2 cm/sec LV V1 VTI - 20.4 cm SV(Ao) - 600 ml SI(Ao) - 252 ml/m^2 PA V2 max - 121.7 cm/sec PA max PG - 5.9 mmHg Conclusion The study was technically difficult with many images beingsuboptimal in quality. The left ventricular mass index is increased. E/E' averaged >13 The ejection fraction measured by 2D BP MOD is41%. Akinesis of the apex and periapical segments, anteroseptumwith better motion of the LV base representing, until proven otherwise, LAD territory issues on a background of moderate aortic stenosis. InterpretingPhysician:Interpreting Physician: Papi Delcid, electronically signed on 2022-12-28 16:16:52.52 Physical Examination: VItals: BP 104/74 Pulse 70 Temp 36.1 ??C (96.9 ??F) Resp 18 Ht 1.753 m Wt 120.4 kg SpO2 97% BMI 39.17 kg/m?? Temp (24hrs), Av.2 ??C (97.2 ??F), Min:36.1 ??C (96.9 ??F), Max:36.4 ??C (97.5 ??F) Ventilation: Resp: 18 SpO2: 97 % O2 Mode: Nasal Cannula Or Prongs O2 Frequency: Continuous Telemetry: NSR Intake/Output Summary (Last 24 hours) at 01/06/2023 0644 Last data filed at 01/06/2023 0600 Gross per 24 hour Intake 695.7 ml Output 1475 ml Net -779.3 ml Body mass index is 39.17 kg/m??. Constitutional: alert, oriented times four and well nourished, well developed, and in no distress HENT: normocephalic, atraumatic, + JVD, no carotid bruits, trachea midline and normal to palpitation EYES: Both eyes: conjunctivae and sclerae clear, pupils equal, round, reactive to light and accommodation, EOM's intact CV: S1 and S2 normal, no murmurs, no gallops, no extra heart sounds, 2+ pulses. 2+ edema noted. Pulm: Lung sounds clear to auscultation, respiratory rate and rhythm regular GI: Bowel sounds normal. Abdomen soft, non-tender. No masses, No organomegaly Musculoskeletal: No clubbing, cyanosis, inflammatory changes. No joint deformity, swelling or tenderness. Skin: Skin color, texture, turgor normal. No rashes or lesions. Neurological: negative findings: speech normal, mental status intact Wound/Stage: No wound Psychiatric: Alert, oriented to person, place, time, and situation LAB: REVIEWED IN EMR, PERTINENT VALUES, AND DECISION MAKING, ARE INCORPORATED IN ASSESSMENT AND PLAN STUDIES: IMAGES HAVE BEEN PERSONALLY INTERPRETED IN PACS, RADIOLOGY REPORTS HAVE BEEN REVIEWED DECISION MAKING INCORPORATED INTO THE ASSESSMENT AND PLAN Patient was seen and evaluated with Maxwell Morgan MD. Plan of care was reviewed in detail. Electronically signed by Michael Hernandez DO Associated attestation - Maxwell Smith MD - 01/06/2023 11:13 AM EDT Cardiac ICU Attending Note: 01/06/23 The patient's history and care were reviewed with Dr. Hernandez ([facility] I have seen and examined the patient and confirmed their findings. I have reviewed the medical record including pertinent radiographs and laboratory results. I agree with the management as outlined in their note and discussed on rounds with additions and amendments per my note. Reason for ICU Admission: Severe Patient Summary: 77yrs old Male with PMH significant for HTN, HLD, CABG x 2, severe s/p porcine AVR (~10 years ago) who presented to [facility] CICU on 01/04/22 for volume optimization prior to valve in valve TAVR scheduled on 01/08/23. Last 24 hours: No acute events overnight Labs and Imaging reviewed Assessment and Plan: 1. Acute hypoxemic respiratory failure secondary to severe with HFrEF 2. Significant cardiac co-morbidities: HTN, HLD, CABG x 2, severe s/p porcine AVR (~10 years ago) 3. Acute Kidney injury on CKD Plan: Continue cautious diuresis with lasix gtt (patient is pre-load dependent) Pressors: Levophed PRN for goal MAP > 65 Monitor BMP, UOP, lytes; replete PRN CTS on board: plan for valve in valve TAVR on 01/08/23 FEN: Cardiac Diet Prophylaxis: heparin Family updated. Full Code Disposition: patient remains critically ill, continue current level of care. This patient is critically ill with significant potential for decline. 31 minutes critical care time spent excluding teaching and procedures. Maxwell Smith MD [employer] intern Division of Pulmonary, Critical Care and Sleep Medicine [facility], [facility] * Melida Real RN - 01/06/2023 5:55 AM EDT Shift summary: No acute events during the night. VSS on monitor. Patient remains on 5L NC. Lasix gtt infusing per NOV. Net - 608 ml during the night. See flowsheet for further documentation. Problem: Adult Inpatient Plan of Care Goal: Plan of Care Review Outcome: Ongoing, Progressing Problem: Fall Injury Risk Goal: Absence of Fall and Fall-Related Injury Outcome: Ongoing, Progressing * Melida Real RN - 01/05/2023 10:15 PM EDT Assumed care of patient at this time. I agree with previous medical billing specialist unless otherwise noted. See flowsheet for documentation. * Michael Luna RN - 01/05/2023 4:27 PM EDT Reviewed with patient and family * Natividad Haley CCM - 01/05/2023 12:38 PM EDT Case Management Plan of Care Note MR #: [id number] Date of Admission: 12/28/2022 Attending Physician: Maxwell Smith MD Principle Problem : Acute coronary syndrome ([facility]) Hospital Problems: Active Hospital Problems Diagnosis *Acute coronary syndrome ([facility]/HCC) NSTEMI (non-ST elevated myocardial infarction) ([facility]) Shock ([facility]) Hypertension Hyperlipidemia Coronary artery disease Insurance: Primary: Payor: MEDICARE / Plan: MEDICARE PART A & B / Product Type: Medicare / Secondary: [facility] [place] LOS: 8 Current Date\Time: 01/05/2023, 12:38 PM Participants (discussed with separately):This Medical Researcher per chart review. Anticipated Discharge Destination: Likely home with or without HH Overview: 01/04 - transferred to CICU to optimize for planned Linda TAVR on 01/08; on lasix drip Case Management Barrier(s)/Issue(s) & Associated Action Plan\Recommendation: Barrier: Planned surgery for 01/08 Plan: Likely discharge home (with or without HH) after TAVR Comments: Case management will continue to follow patient's progression and appropriate discharge disposition. PURA Worrell CICU Medical Researcher [email or web address] For Urgent Case Management assistance Sunday through Sunday, Weekends or Holidays 8:30-5:00PM, please page [phone], pager [phone] For Case Management assistance after 5:00PM, please call [phone] * Michael Luna RN - 01/05/2023 11:10 AM EDT Reviewed with patient and family * Michael Hernandez DO - 01/05/2023 6:35 AM EDT Images from the original note were not included. Cardiac Critical Care Progress Note Michael Hernandez DO Date: 01/05/2023, 6:36 AM LOC:[id number]/CV437 Raghu Rosenthal 1945 Hosp day:7 days Referring MD: Williams Yip MD ICU Day: # 2 Code Status: Full Code Chief Complaint: Severe Narrative/Overnight/ROS: (History and SOAP notes have been reviewed in the EMR) 01/05/23: No acute events reported overnight. Patient resting comfortably in chair with no new complaints. 2.2 L UOP yesterday. Hospital Course: Raghu Rosenthal is a 77yrs Male with PMH of CAD s/p CABG x2 in [place] 10 years ago, HTN, HLD, porcine AVR who initially presented to [place] ED with complaints of SOB and midchest pressure. Patient lives in [place] with his , and is visiting [facility] for the next 3 months. He recently had [facility]. Following this procedure he had worsening SOB associated with fatigue, malaise and generalized weakness. EMS was called and he was brought to [place] ED. On arrival he was noted to be in mild respiratory distress and required bipap. WBC of 19. EKG without NUNO, troponin 1.197. CXR consistent with mild interstitial edema, and a small left pleural effusion. He was given nitro sublingual and morphine, and started on BID lovenox. He was admitted to the ICU at [place]. He was started on empiric vanc, cefepime for possible infection. He was hypotensive requiring levophed with a differential of cardiogenic vs septic shock. He had a repeat EKG done on 12/28 with a new LBBB. His troponin trended as high as 39. Given concerns for acute coronary syndrome, he was transferred to [facility] for further management. On arrival to CICU, patient is awake and alert. He is on low dose levophed. He is warm to the touchand appears well perfused. POCUS with EF visually estimated at 45%. Breathing comfortably on room air. He underwent a R/[facility] 12/28/2022 showin. Severe three-vessel disease with patent AVERY to LAD, intermediate stenosis in mid RCA, 60% distal left main stenosis. Culprit for his VA appears to be an occluded SVG to ramus graft. There is flowin the ramus with proximal 70% stenosis. 2. He is also noted to have severely degenerated bioprosthetic aortic valve, invasive gradients reviewed severely stenotic with mean gradient over 40 mmHg. 3. Decompensated heart failure with preserved cardiac output. We had discontinued his Levophed on arrival to the [facility]. LVEDP 30mmHg. Right heart catheterization: RA:14 RV:55/10 PA: 54/23(35) PCWP:25 Pa sat:56% Ra Sat:56% Aortic valve gradient: 48mmHg mean grad CHELITA: 0.75cm2 Cardiac output was 5.5, cardiac index is 2.3 Since being admitted, patient was treated for cardiogenic shock and noted to have severe bioprosthetic aortic valve stenosis with plans for valve in valve TAVR. This morning, he was complaining of chest pain. Active Hospital Problems: Active Hospital Problems Diagnosis *Acute coronary syndrome (CMS/HCC) NSTEMI (non-ST elevated myocardial infarction) (CMS/HCC) Shock (CMS/HCC) Hypertension Hyperlipidemia Coronary artery disease Cardiogenic shock, resolved NSTEMI HFrEF with EF 41% - Patient initially presenting with cardiogenic shock and reduced EF on 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 years ago - continue GDMT with aspirin and Tricor (intolerance to statins) - continue lasix drip and monitor UOP - continue to monitor electrolytes Severe aortic stenosis Degenerated bioprosthetic aortic valve - CT surgery involved and planning for Linda TAVR on 01/08/23 - avoid beta blockers and calcium channel blockers in the preload dependent state Acute hypoxic respiratory failure - currently on 5L NC likely related to pulmonary edema - wean FiO2 as tolerated - continue Duonebs q4h PRN, IS, OOB as tolerated FILIBERTO on CKD II - creatinine was steadily increasing since admission but has stabilized - UOP improved yesterday, continue to monitor - continue diuresis as above Hypertension - holding home antihypertensives Hyperlipidemia - holding statin due to intolerance CICU Daily Rounding Checklist 1. Lines/Tubes/Drains -Bruno: yes -CVC: no -Art line: no -Other: N/a 2. SBT/SAT: N/A 3. Nutrition Status: Nutrition Therapy Room Service Assistance Needed 4. Glycemic Control: -137 mg/dL (01/06 452) -12/28/2022: Hemoglobin A1C 5.0 % -N/A 5. Mobility Status - GEMS: Mobility Level 1- Primarily in bed activities - PT/OT:no 6. DVT Prophylaxis: Heparin 7. PUD Prophylaxis: N/A 8. CAM ICU Score: Delirium Assessment CAM-ICU Acute Change or Fluctuating Course of Mental Status: No CAM-ICU Score: Negative -Interventions N/A 9. Current antibiotics: None Most Recent Restraint Order (From admission, onward) None Medications: SCHEDULED MEDICATIONS [Held by Provider] amLODIPine, 10 mg, DAILY aspirin, 81 mg, DAILY AT 0800 [Held by Provider] cetirizine, 10 mg, DAILY cholecalciferol, 1,000 Units, DAILY escitalopram, 20 mg, DAILY fenofibrate, 145 mg, WITH BREAKFAST gabapentin, 100 mg, QHS hepARIN subcutaneous injection, 5,000 Units, Q8HR [Held by Provider] hydroCHLOROthiazide, 25 mg, DAILY lidocaine, 1 Patch, DAILY [Held by Provider] losartan, 100 mg, DAILY melatonin, 5 mg, QHS sevelamer carbonate, 0.8 g, TID-WITH MEALS [Held by Provider] spironolactone, 25 mg, DAILY [Held by Provider] tiotropium, 1 Capsule, RTDAILY furosemide, Last Rate: 25 mg/hr (01/05/23 0552) norepinephrine (LEVOPHED) continuous infusion PRN Inpatient Medications: acetaminophen liquid, 650 mg, [id number] ondansetron, 4 mg, [id number] Echo : ECHO Result Date: 12/28/2022 Reason for Exam: Chest Pain Date of Service: 12/28/2022 Interpretation Summary There is no comparison study available. Patient Height 175.0 cm Patient Weight 127.0 kg Systolic Pressure 132 mmHg Diastolic Pressure 53 mmHg Study Location E[facility] BSA 2.4 m^2 Procedure: A complete two-dimensional transthoracic echocardiogram was performed (2D, M-mode, spectral and color flow Doppler). Study Quality: Fair. The study was technically difficult with many images being suboptimal in quality. A contrast injection of Definity was performed to improve assessment of LV function. Left Ventricle: The left ventricular mass index is increased. There is mild concentric left ventricular hypertrophy. LVEDV 299 ml with BSA 2.4 m2 The ejection fraction measured by 2D BP MOD is41%. The LV ejection fraction is severely decreased. Akinesis of the apex and periapical segments, anteroseptum with better motion of the LV base representing, until proven otherwise, LAD territory issues on a background of moderate aortic stenosis. There is no thrombus. LV diastolic function can not be accurately assessed. E/E' averaged>13 Left Atrium: The left atrial volume is mildly increased. Right Atrium: Right atrial size is normal. Right Ventricle: The right ventricular systolic function is normal. Aortic Valve: Focal calcification. The aortic valve is not well visualized. The peak aortic valve velocity 385 cm/s. Aortic mean pressure gradient= 32 mmHg. The aortic valve velocity ratio was calculated at 0.27. Mitral Valve: Both leaflets are pliable and mobile. There is trace mitral regurgitation. Tricuspid Valve: The tricuspid valve is not well visualized. There was insufficient TR detected to calculate RV systolic pr essure. Pulmonic Valve: The pulmonic valve is not well visualized. Trace pulmonic valvular regurgitation. Arteries: The aortic root is normal size. There is aortic root sclerosis/calcification. Aortic arch not seen well. Venous: Severely dilated inferior vena cava. Pericardium/Pleura: There is no pericardial effusion. MMode 2D Measurements & Calculations IVSd - 1.2 cm LVIDd - 5.9 cm LVIDs - 4.7 cm LVPWd - 1.1 cm IVS/LVPW - 1.1 FS - 20.9 % EDV(Teich) - 172.5 ml ESV(Teich) - 100.2 ml EF(Teich) - 41.9 % EF (est.) - 41.1 % EDV(cubed) - 204.3 ml ESV(cubed) - 101 ml EF(cubed) - 50.6 % LV mass(C)d - 277.7 grams LV mass(C)dI - 116.6 grams/m^2 SV(Teich) - 72.4 ml SI(Teich) - 30.4 ml/m^2 SV(cubed) - 103.3 ml SI(cubed) - 43.4 ml/m^2 Ao root diam - 3.4 cm Ao root area - 9.3 cm^2 LA dimension - 4.7 cm LA/Ao - 1.4 LVLd ap4 - 11.6 cm EDV(MOD-sp4) - 289 ml LVLs ap4 - 10.1 cm ESV(MOD-sp4) - 176 ml EF(MOD-sp4) - 39.1 % LVLd ap2 - 11.3 cm EDV(MOD- sp2) - 302 ml LVLs ap2 - 10.1 cm ESV(MOD-sp2) - 176 ml EF(MOD-sp2) - 41.7 % SV(MOD-sp4) - 113 ml SI(MOD-sp4) - 47.5 ml/m^2 SV(MOD-sp2) - 126 ml SI(MOD-sp2) - 52.9 ml/m^2 Doppler Measurements & Calculations MV E max bee - 93.3 cm/sec MV A max bee - 113.7 cm/sec MV E/A - 0.82 MV dec time - 0.17 sec Ao V2 max - 330.8 cm/sec Ao max PG - 46.5 mmHg Ao max PG (full) - 42.4 mmHg Ao V2 mean - 223.4 cm/sec Ao mean PG - 24.8 mmHg Ao mean PG (full) - 22.8 mmHg Ao V2 VTI - 64.6 cm LVOT max gradient - 4.2 mmHg LV V1 mean PG - 2 mmHg LVOT max bee - 101.7 cm/sec LV V1 mean - 68.2 cm/sec LV V1 VTI - 20.4 cm SV(Ao) - 600 ml SI(Ao) - 252 ml/m^2 PA V2 max - 121.7 cm/sec PA max PG - 5.9 mmHg Conclusion The study was technically difficult with many images beingsuboptimal in quality. The left ventricular mass index is increased. E/E' averaged >13 The ejection fraction measured by 2D BP MOD is41%. Akinesis of the apex and periapical segments, anteroseptumwith better motion of the LV base representing, until proven otherwise, LAD territory issues on a background of moderate aortic stenosis. InterpretingPhysician:Interpreting Physician: Papi Delcid, electronically signed on 2022-12-28 16:16:52.52 Physical Examination: VItals: BP 116/59 Pulse 76 Temp 36.2 ??C (97.2 ??F) Resp (!) 32 Ht 1.753 m Wt 120.4 kg SpO2 100% BMI 39.17 kg/m?? Temp (24hrs), Av.6 ??C (97.8 ??F), Min:36.2 ??C (97.2 ??F), Max:36.9 ??C (98.4 ??F) Ventilation: Resp: (!) 32 SpO2: 100 % O2 Mode: Nasal Cannula Or Prongs O2 Frequency: Continuous Telemetry: NSR Intake/Output Summary (Last 24 hours) at 01/05/2023 0636 Last data filed at 01/05/2023 0600 Gross per 24 hour Intake 448.43 ml Output 2175 ml Net -1726.57 ml Body mass index is 39.17 kg/m??. Constitutional: alert, oriented times four and well nourished, well developed, and in no distress resting in chair HENT: normocephalic, atraumatic, + JVD, no carotid bruits, trachea midline and normal to palpitation EYES: Both eyes: conjunctivae and sclerae clear, pupils equal, round, reactive to light and accommodation, EOM's intact CV: S1 and S2 normal, no murmurs, no gallops, no extra heart sounds, 2+ pulses. 2+ edema noted. Pulm: Lung sounds clear to auscultation, respiratory rate and rhythm regular GI: Bowel sounds normal. Abdomen soft, non-tender. No masses, No organomegaly Musculoskeletal: No clubbing, cyanosis, inflammatory changes. No joint deformity, swelling or tenderness. Skin: Skin color, texture, turgor normal. No rashes or lesions. Neurological: negative findings: speech normal, mental status intact Wound/Stage: No wound Psychiatric: Alert, oriented to person, place, time, and situation LAB: REVIEWED IN EMR, PERTINENT VALUES, AND DECISION MAKING, ARE INCORPORATED IN ASSESSMENT AND PLAN STUDIES: IMAGES HAVE BEEN PERSONALLY INTERPRETED IN PACS, RADIOLOGY REPORTS HAVE BEEN REVIEWED DECISION MAKING INCORPORATED INTO THE ASSESSMENT AND PLAN Patient was seen and evaluated with Maxwell Morgan MD. Plan of care was reviewed in detail. Electronically signed by Michael Hernandez DO Associated attestation - Maxwell Smith MD - 01/05/2023 12:04 PM EDT Cardiac ICU Attending Note: 01/05/23 The patient's history and care were reviewed with Dr. Hernandez [facility] I have seen and examined the patient and confirmed their findings. I have reviewed the medical record including pertinent radiographs and laboratory results. I agree with the management as outlined in their note and discussed on rounds with additions and amendments per my note. Reason for ICU Admission: Severe Patient Summary: 77yrs old Male with PMH significant for HTN, HLD, CABG x 2, severe s/p porcine AVR (~10 years ago) who presented to [facility] CICU on 01/04/22 for volume optimization prior to valve in valve TAVR scheduled on 01/08/23. Last 24 hours: No acute events overnight Labs and Imaging reviewed Assessment and Plan: 1. Acute hypoxemic respiratory failure secondary to severe with HFrEF 2. Significant cardiac co-morbidities: HTN, HLD, CABG x 2, severe s/p porcine AVR (~10 years ago) 3. Acute Kidney injury on CKD Plan: Continue cautious diuresis with lasix gtt (patient is pre-load dependent) Pressors: Levophed PRN for goal MAP > 65 Monitor BMP, UOP, lytes; replete PRN CTS on board: plan for valve in valve TAVR on 01/08/23 FEN: Cardiac Diet Prophylaxis: heparin Family updated. Full Code Disposition: patient remains critically ill, continue current level of care. This patient is critically ill with significant potential for decline. 49 minutes critical care time spent excluding teaching and procedures. Maxwell Smith MD [employer] intern Division of Pulmonary, Critical Care and Sleep Medicine [facility], [facility] * Tran Hahn RN - 01/04/2023 6:36 PM EDT Problem: Adult Inpatient Plan of Care Goal: Plan of Care Review Outcome: Ongoing, Progressing Shift summary: Patient transferred to CICU. No acute events overnight. No c/o chest pain, SOB, dizziness, or nausea. VSS per monitor. Telemetry intact. Remains on Lasix gtt throughout the shift. Planfor CT surgery next week, consents signed. Bed in low position, wheels locked, call vasquez in reach. * Sparkle Georges FNP-BC - 01/04/2023 4:57 PM EDT Images from the original note were not included. Structural Heart Patient seen this AM; consented for TAVR on Sunday. Dr Hartley discussed with [facility] Fellow moving patient to the CICU to optimize him for surgery from a volume standpoint. Preop orders signed and held. * Yvrose Thomas MD - 01/04/2023 10:44 AM EDT Images from the original note were not included. [facility] - Cardiology Teaching Service Progress Note Service Pager (call #1, internal sales engineer) #[phone] Service Pager (call #2, senior) #[phone] PATIENT IDENTIFICATION: Patient Name: Raghu Rosenthal Age: 77yrs Sex: Male : 1945 MEG: [id number] Admit Date: 12/28/2022 1:45 PM Today's Date: 01/04/2023 Length of Stay: 6 days Admit Diagnosis: NSTEMI (non-ST elevated myocardial infarction) (CMS/HCC) [I21.4] Primary Diagnosis: Acute coronary syndrome (CMS/HCC) Room: [facility]/CV512 PCP: Williams Yip MD Primary Insurance: @[email or web address]@ Secondary Insurance: @[email or web address] Interval Events (Previous 24-hrs): Overnight continues to have chest pain , patient anxious as well. Lidocaine patch applied , gabapentin given for anxiety , improved and patient was able to go back to sleep SUBJECTIVE: Seen and examined at bedside this am. Continues to report chest pressure and discomfortwith bruno insertion. Reports better sleep overnight ASSESSMENT & PLAN: Raghu Rosenthal is a 77yrs old Male with PMH of CAD s/p CABG x2 in [place] 10 years ago, HTN, HLD, porcine AVR who initially presented to [place] ED with complaints of SOB and midchest pressure. Transferred to [facility] in cardiogenic shock and admitted to CICU. Now downgraded to the floor for HFrEF exacerbation with severe . Cardiogenic Shock - resolved NSTEMI HFrEF Trop peak 69 and downtrended H/o CABGx2 10 years ago Cath 12/28/22 1. Severe three-vessel disease with patent AVERY to LAD, intermediate stenosis in mid RCA, 60% distal left main stenosis. Culprit for his VA appears to be an occluded SVG to ramus graft. There is flowin the ramus with proximal 70% stenosis. 2. He is also noted to have severely degenerated bioprosthetic aortic valve, invasive gradients reviewed severely stenotic with mean gradient over 40 mmHg. 3. Decompensated heart failure with preserved cardiac output. We had discontinued his Levophed on arrival to the [facility]. LVEDP 30mmHg. Echo 12/28/22 with EF 41% Plan : - ASA 81mg , tricor 145mg -lasix 40mg IV push followed by lasix gtt 15mg/hr and titrate based on UO - careful diuresis -Holding losartan in setting of FILIBERTO -Monitor I/Os -daily weights -BMP q12 hrs -LOW SUSPICION FOR CICU TRANSFER Severe Degenerated Bioprosthetic Valve CT A/P 1. Mildly enlarged heart. Diffuse coronary artery [...] Diverticulosis. Partial colectomy. 8. Bilateral hip arthroplasty. -Plan for [id number] TAVR -AVOID NITRATES AND BB since patient is preload dependent Acute Hypoxic Respiratory Failure Diurese carefully Wean O2 when possible CXR 12/28/22 with pulmonary edema Duonebs q4hr Incentive spirometry FILIBERTO on CKD II Creat uptrending, phosphate elevated this am as well Avoid nephrotoxins Avoid losartan Started on sevalamer TID Strict output monitoring Will benefir from nephrology consult if UO keeps declining HTN Holding home meds HLD Held statin due to statin allergy FEN: Fluids: none Electrolytes: Will replace to keep K >4, Phos >3, Mg >2 Nutrition: cardiac diet DVT Prophylaxis: heparin/enoxaparin/SCD Dispo: CIU Code Status: Full Code The assessment and plan above was discussed with the attending physician, Jeyson Richard MD Review of Systems: Unchanged since yesterday Review of Systems Constitutional: Positive for appetite change and fatigue. Negative for chills and fever. HENT: Negative for sore throat. Respiratory: Positive for cough, chest tightness, shortness of breath and wheezing. Negative for stridor. Cardiovascular: Positive for chest pain and leg swelling. Negative for palpitations. Gastrointestinal: Negative for abdominal pain, diarrhea, nausea and vomiting. Genitourinary: Negative for dysuria. Musculoskeletal: Negative for myalgias. Skin: Negative for rash. Neurological: Negative for weakness and headaches. Psychiatric/Behavioral: Negative for agitation. OBJECTIVE: Vitals: Blood pressure 117/60, pulse 83, temperature 36.9 ??C (98.4 ??F), resp. rate 19, height 1.753 m, weight 120.4 kg, SpO2 98 %. Max Blood Pressure: Systolic (24hrs), Av , Min:91 , Max:157 Diastolic (24hrs), Av, Min:60, Max:86 Physical Exam: General: Sitting upright in acute distress , NC in place , tired appearing Eyes: conjunctivae sclerae clear, PERRL, EOMI HENT: Atraumatic, normocephalic, buccal mucosa, palate and tongue WNL Neck: supple, Lungs: Equal air entry bilaterally, clear to auscultation,diffuse wheezes B/L , increased WOB, NC in place Heart: RRR, normal S1, S2, no murmur, gallops, or rubs. 2+ pitting edema Abdomen: soft, nontender, nondistended, + bowel sounds, no organomegally, or masses, bruno in place Neuro: Alert, oriented X3, no focal neurological signs, moving all 4 extremities, Extremities: 2+ pitting edema to the stevens Skin: warm, no pallor, no cyanosis, no rashes, no ecchymoses Psych: normal affect Patient Data: I/O's: Intake/Output Summary (Last 24 hours) at 01/04/2023 1045 Last data filed at 01/04/2023 1000 Gross per 24 hour Intake 568.73 ml Output 1975 ml Net -1406.27 ml Weight change: Height/Weight: Admission:Weight: 121.7 kg Today's: Weight: 120.4 kg BMI: Body mass index is 39.17 kg/m??. Current Medications: albuterol, , [Held by Provider] amLODIPine, 10 mg, DAILY aspirin, 81 mg, DAILY AT 0800 [Held by Provider] cetirizine, 10 mg, DAILY cholecalciferol, 1,000 Units, DAILY enoxaparin (LOVENOX) injection, 40 mg, DAILY AT 1600 escitalopram, 20 mg, DAILY fenofibrate, 145 mg, WITH BREAKFAST gabapentin, 100 mg, QHS [Held by Provider] hydroCHLOROthiazide, 25 mg, DAILY hydrOXYzine, 25 mg, ONCE lidocaine, 1 Patch, DAILY [Held by Provider] losartan, 100 mg, DAILY melatonin, 5 mg, QHS sevelamer carbonate, 0.8 g, TID-WITH MEALS [Held by Provider] spironolactone, 25 mg, DAILY [Held by Provider] tiotropium, 1 Capsule, RTDAILY furosemide, Last Rate: 15 mg/hr (01/04/23 1000) acetaminophen liquid, 650 mg, [id number] ondansetron, 4 mg, [id number] Lab Results: Recent Labs 12/29/22 0538 12/31/22 0417 01/01/23 0358 WBC 5.15 5.16 5.57 HEMOGLOBIN 9.2* 9.8* 9.7* HEMATOCRIT 29.3* 30.0* 30.0* NEUTROPHIL # 3.95 4.08 3.69 NEUTROPHIL % 78 79 67 MCV 97.3 96.2 96.2 PLATELET 80* 105* 157 Recent Labs 01/03/23 0545 01/03/23211401/04/23 0548 SODIUM 129* 130* 131* POTASSIUM 4.3 4.8* 4.5 CHLORIDE 97* 96* 96* GLUCOSE 143* 145* 140* BUN 84* 93* 100* CREATININE 2.26* 2.37* 2.61* Recent Labs 01/03/23 0545 01/03/23211401/04/23 0548 MAGNESIUM 2.2 2.1 2.2 Recent Labs 01/03/23 0545 01/03/23211401/04/23 0548 PHOSPHORUS 5.1* 5.3* 6.3* Diagnostics (Reviewed): XRAY CHEST 1 VIEW Result Date: 01/03/2023 Findings and impression: Stable bilateral pulmonary opacities. Stable small bilateral pleural effusions. No pneumothorax. Stable enlargement of the cardiac silhouette. Reading Doctor: Skylar Robbins Electronic Signature by: Skylar Robbins XRAY CHEST 1 VIEW Result Date: 01/01/2023 Findings/impression: Progressive heterogeneous right upper lobe airspace opacity, likely pneumonia with differential to include asymmetric pulmonary edema. No other interval changes. Stable cardiomegaly and pulmonary vascular congestion. No large pleural effusions. Reading Doctor: Ean Berumen ectronic Signature by: Ean Berumen ECHO Result Date: 12/28/2022 Reason for Exam: Chest Pain Date of Service: 12/28/2022 Interpretation Summary There is no comparison study available. Patient Height 175.0 cm Patient Weight 127.0 kg Systolic Pressure 132 mmHg Diastolic Pressure 53 mmHg Study Location E[facility] BSA 2.4 m^2 Procedure: A complete two-dimensional transthoracic echocardiogram was performed (2D, M-mode, spectral and color flow Doppler). Study Quality: Fair. The study was technically difficult with many images being suboptimal in quality. A contrast injection of Definity was performed to improve assessment of LV function. Left Ventricle: The left ventricular mass index is increased. There is mild concentric left ventricular hypertrophy. LVEDV 299 ml with BSA 2.4 m2 The ejection fraction measured by 2D BP MOD is41%. The LV ejection fraction is severely decreased. Akinesis of the apex and periapical segments, anteroseptum with better motion of the LV base representing, until proven otherwise, LAD territory issues on a background of moderate aortic stenosis. There is no thrombus. LV diastolic function can not be accurately assessed. E/E' averaged>13 Left Atrium: The left atrial volume is mildly increased. Right Atrium: Right atrial size is normal. Right Ventricle: The right ventricular systolic function is normal. Aortic Valve: Focal calcification. The aortic valve is not well visualized. The peak aortic valve velocity 385 cm/s. Aortic mean pressure gradient= 32 mmHg. The aortic valve velocity ratio was calculated at 0.27. Mitral Valve: Both leaflets are pliable and mobile. There is trace mitral regurgitation. Tricuspid Valve: The tricuspid valve is not well visualized. There was insufficient TR detected to calculate RV systolic pr essure. Pulmonic Valve: The pulmonic valve is not well visualized. Trace pulmonic valvular regurgitation. Arteries: The aortic root is normal size. There is aortic root sclerosis/calcification. Aortic arch not seen well. Venous: Severely dilated inferior vena cava. Pericardium/Pleura: There is no pericardial effusion. MMode 2D Measurements & Calculations IVSd - 1.2 cm LVIDd - 5.9 cm LVIDs - 4.7 cm LVPWd - 1.1 cm IVS/LVPW - 1.1 FS - 20.9 % EDV(Teich) - 172.5 ml ESV(Teich) - 100.2 ml EF(Teich) - 41.9 % EF (est.) - 41.1 % EDV(cubed) - 204.3 ml ESV(cubed) - 101 ml EF(cubed) - 50.6 % LV mass(C)d - 277.7 grams LV mass(C)dI - 116.6 grams/m^2 SV(Teich) - 72.4 ml SI(Teich) - 30.4 ml/m^2 SV(cubed) - 103.3 ml SI(cubed) - 43.4 ml/m^2 Ao root diam - 3.4 cm Ao root area - 9.3 cm^2 LA dimension - 4.7 cm LA/Ao - 1.4 LVLd ap4 - 11.6 cm EDV(MOD-sp4) - 289 ml LVLs ap4 - 10.1 cm ESV(MOD-sp4) - 176 ml EF(MOD-sp4) - 39.1 % LVLd ap2 - 11.3 cm EDV(MOD- sp2) - 302 ml LVLs ap2 - 10.1 cm ESV(MOD-sp2) - 176 ml EF(MOD-sp2) - 41.7 % SV(MOD-sp4) - 113 ml SI(MOD-sp4) - 47.5 ml/m^2 SV(MOD-sp2) - 126 ml SI(MOD-sp2) - 52.9 ml/m^2 Doppler Measurements & Calculations MV E max bee - 93.3 cm/sec MV A max bee - 113.7 cm/sec MV E/A - 0.82 MV dec time - 0.17 sec Ao V2 max - 330.8 cm/sec Ao max PG - 46.5 mmHg Ao max PG (full) - 42.4 mmHg Ao V2 mean - 223.4 cm/sec Ao mean PG - 24.8 mmHg Ao mean PG (full) - 22.8 mmHg Ao V2 VTI - 64.6 cm LVOT max gradient - 4.2 mmHg LV V1 mean PG - 2 mmHg LVOT max bee - 101.7 cm/sec LV V1 mean - 68.2 cm/sec LV V1 VTI - 20.4 cm SV(Ao) - 600 ml SI(Ao) - 252 ml/m^2 PA V2 max - 121.7 cm/sec PA max PG - 5.9 mmHg Conclusion The study was technically difficult with many images beingsuboptimal in quality. The left ventricular mass index is increased. E/E' averaged >13 The ejection fraction measured by 2D BP MOD is41%. Akinesis of the apex and periapical segments, anteroseptumwith better motion of the LV base representing, until proven otherwise, LAD territory issues on a background of moderate aortic stenosis. InterpretingPhysician:Interpreting Physician: Papi Delcid, electronically signed on 2022-12-28 16:16:52.52 EKG: Results for orders placed or performed during the hospital encounter of 12/28/22 (from the past 24 hour(s)) EKG 12 LEAD Collection Time: 01/01/23 5:17 AM Test Value Low-High EKG Text INTERFACED DOCUMENTS - [facility] - ABNORMAL ECG - Sinus rhythm normal P axis, V-rate 60-99 Left bundle branch block QRSd>, broad/notched R ST elevation secondary to IVCD Multiple VCG criteria When compared with ECG of 29-Dec-2022 10:18:05, Nonspecific significant change Reading Physician [id number] Heart Rate 94 P-R Interval 201 P [place] 77 QRS Duration 140 QT Internal 397 QTcB 498 QRS [place] 7 I-40 [place] 36 T-40 [place] -37 T Wave [place] [address] [place] 225 Yvrose Thomas MD PGY1 Resident - Internal Medicine [facility], [facility] Associated attestation - Jeyson Richard MD - 01/04/2023 4:49 PM EDT ATTENDING ENTERPRISE APPLICATION ARCHITECT ATTESTATION: I have seen and examined the patient with Dr. Thomas on 01/04/23. I have reviewed the chart andagree with the findings and recommendations as indicated above. Awaiting valve in valve TAVR on Sunday. Electronically Signed By: Minor Richard MD * Tran Hahn RN - 01/04/2023 7:00 AM EDT Received report regarding patient status and current plan of care. Patient resting quietly in chairwith legs elevated. at bedside. Patient denies chest pain, SOB, or nausea. VSS per monitor. IVsite WNL. Telemetry intact. Assessment completed. Plan of Care discussed with patient and . Bedin low position, wheels locked, and call vasquez in reach. Patient encouraged to utilize call vasquez with all needs. No needs voiced at this time. * Char Bernard RN - 01/03/2023 2:34 PM EDT Problem: Adult Inpatient Plan of Care Goal: Plan of Care Review Outcome: Ongoing, Progressing Goal: Patient-Specific Goal (Individualized) Outcome: Ongoing, Progressing Goal: Absence of Hospital-Acquired Illness or Injury Outcome: Ongoing, Progressing Goal: Optimal Comfort and Wellbeing Outcome: Ongoing, Progressing Goal: Readiness for Transition of Care Outcome: Ongoing, Progressing Problem: Adjustment to Illness (Acute Coronary Syndrome) Goal: Optimal Adaptation to Illness Outcome: Ongoing, Progressing Problem: Dysrhythmia (Acute Coronary Syndrome) Goal: Normalized Cardiac Rhythm Outcome: Ongoing, Progressing Problem: Cardiac-Related Pain (Acute Coronary Syndrome) Goal: Absence of Cardiac-Related Pain Outcome: Ongoing, Progressing Problem: Hemodynamic Instability (Acute Coronary Syndrome) Goal: Effective Cardiac Pump Function Outcome: Ongoing, Progressing Problem: Tissue Perfusion (Acute Coronary Syndrome) Goal: Adequate Tissue Perfusion Outcome: Ongoing, Progressing Problem: Fall Injury Risk Goal: Absence of Fall and Fall-Related Injury Outcome: Ongoing, Progressing Problem: Pain Acute Goal: Acceptable Pain Control and Functional Ability Outcome: Ongoing, Progressing * Ursula Remy RN - 01/03/2023 1:07 PM EDT Emergency Response Team Note Date: 01/03/2023 Patient Name: Raghu Rosenthal Pt EDP#: [id number] Race/Gender: WhiteMale Allergies: Amoxicillin, Atorvastatin, Clavulanic acid, Hydrocodone, Pravachol [pravastatin], and Tetracycline ERT - 01/03/23 1301 Onset Original Room # CC512 Type of Call MEWS Reason for Call MEWS Monitors in Use on Arrival Cardio/Resp;Pulse Oximeter Code Status At Onset Welding Robot Operator Called 1206 Arrival Time 1220 Activated by EHR Primary JULIA Pardo Respiratory Therapist Stefany Vergara Neuro Assessment on Arrival LOC Awake;Alert Orientation Oriented x 4 Speech Intelligible;Clear Right Hand Circular Sawyer Helper Moderate Left Hand Circular Sawyer Helper Moderate RIght Leg Movement Moderate Left Leg Movement Moderate FSBS Value 136 Cardiac Assessment on Arrival Cardiac Rhythm Sinus Rhythm Chest Pain Denies Pain Right Dorsalis Pedis Pulse Weak Left Dorsalis Pedis Pulse Weak Right Radial Pulse Weak Left Radial Pulse Weak Vascular Access on Arrival Bilateral PIV Respiratory Assessment on Arrival Right Upper Wheezing Left Upper Wheezing Right Lower Crackles Left Lower Crackles Respiratory Effort Labored;Abdominal Accessory Muscle Use Respiratory Rhythm Tachypnea Cough Present;Spontaneous;Non-Productive O2 Mode Nasal Cannula Or Prongs O2 Delivery Liters 5 L/min GI Assessment on Arrival Abdomen Obese Bowel Sounds Present Assessment on Arrival Urinary Assessment Voids;Continent Urine Character Concentrated;Leigha Skin Assessment on Arrival General Skin Warm;Dry;Acyanotic Interventions Critical Care Consult No Airway Interventions Nebulizer Treatment Labs Obtained ABG;Lactic Acid Lab site/Location Arterial Intraosseous Placement No Outcomes Time Event Ended 1244 Transfer No Transfer Family/SO Notified No family present Total Time Spent partition 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 Chart and meds reviewed. Upon arrival to room update received from primary nurse. Pt sitting up in bed awake and alert. Oriented times 4 and TORRES. Pt doescomplain of SOB at this time. Warm with weak distal pulses and 3+ edema to BLE. Mottling noted to bottom of bilateral feet. Pt curently on 5L NC. Respirations tachypenic and laboured with use of abd muscles. Breath sounds with scattered wheezes and bibasilar crackles. Abd obese with bowel sounds present and pt voices verbalizing voiding without difficulty. Bilateral PIV in place. Lasix gtt infusing per primary nurse. RT arrived to bedside. ABG drawn per ERT on first attempt from left radial artery. O2 sats 97%. Pressure held for 5 minutes and no bleeding or hematoma noted. Blood lablled and sent to lab per primary nurse. Neb initiated per RT. Plan discussed with primary nurse and charge nurse including bladder scan and possible Lasix bolus. Labs pending. Encouraged to call for any needs or assistance. Ursula Remy RN * Yvrose Thomas MD - 01/03/2023 6:43 AM EDT Images from the original note were not included. [facility] - Cardiology Teaching Service Progress Note Service Pager (call #1, internal sales engineer) #[phone] Service Pager (call #2, senior) #[phone] PATIENT IDENTIFICATION: Patient Name: Raghu Rosenthal Age: 77yrs Sex: Male : 1945 MEG: [id number] Admit Date: 12/28/2022 1:45 PM Today's Date: 01/03/2023 Length of Stay: 5 days Admit Diagnosis: NSTEMI (non-ST elevated myocardial infarction) ([facility]) [I21.4] Primary Diagnosis: Acute coronary syndrome ([facility]) [facility] PCP: Williams Yip MD Primary Insurance: @[employer]@ Secondary Insurance: @[employer]@ Interval Events (Previous 24-hrs): Overnight continues to have chest pain , patient anxious as well. Lidocaine patch applied , gabapentin given for anxiety , improved and patient was able to go back to sleep SUBJECTIVE: Seen and examined at bedside this am. Continues to report worsening SOB , increased WOB. Reports not feeling to well today. Minimal UO during the day as well. Overnight had a good UO ASSESSMENT & PLAN: Raghu Rosenthal is a 77yrs old Male with PMH of CAD s/p CABG x2 in [place] 10 years ago, HTN, HLD, porcine AVR who initially presented to [place] ED with complaints of SOB and midchest pressure. Transferred to [facility] in cardiogenic shock and admitted to CICU. Now downgraded to the floor for HFrEF exacerbation with severe . Cardiogenic Shock - resolved NSTEMI HFrEF Trop peak 69 and downtrended H/o CABGx2 10 years ago Cath 12/28/22 1. Severe three-vessel disease with patent AVERY to LAD, intermediate stenosis in mid RCA, 60% distal left main stenosis. Culprit for his VA appears to be an occluded SVG to ramus graft. There is flowin the ramus with proximal 70% stenosis. 2. He is also noted to have severely degenerated bioprosthetic aortic valve, invasive gradients reviewed severely stenotic with mean gradient over 40 mmHg. 3. Decompensated heart failure with preserved cardiac output. We had discontinued his Levophed on arrival to the [facility]. LVEDP 30mmHg. Echo 12/28/22 with EF 41% Plan : - ASA 81mg , tricor 145mg -lasix 40mg IV push followed by lasix gtt 15mg/hr and titrate based on UO -Holding losartan in setting of FILIBERTO -Monitor I/Os -daily weights -BMP q12 hrs -LOW SUSPICION FOR CICU TRANSFER Severe Degenerated Bioprosthetic Valve CT A/P 1. Mildly enlarged heart. Diffuse coronary artery [...] Diverticulosis. Partial colectomy. 8. Bilateral hip arthroplasty. -Plan for [id number]-qveev TAVR -AVOID NITRATES AND BB since patient is preload dependent Acute Hypoxic Respiratory Failure Diurese carefully Wean O2 when possible CXR 12/28/22 with pulmonary edema Duonebs q4hr Incentive spirometry FU ABG FILIBERTO on CKD II Avoid nephrotoxins Avoid losartan HTN Holding home meds HLD Held statin due to statin allergy FEN: Fluids: none Electrolytes: Will replace to keep K >4, Phos >3, Mg >2 Nutrition: cardiac diet DVT Prophylaxis: heparin/enoxaparin/SCD Dispo: CIU Code Status: Full Code The assessment and plan above was discussed with the attending physician, Jeyson Richard MD Review of Systems: Review of Systems Constitutional: Positive for appetite change and fatigue. Negative for chills and fever. HENT: Negative for sore throat. Respiratory: Positive for cough, chest tightness, shortness of breath and wheezing. Negative for stridor. Cardiovascular: Positive for chest pain and leg swelling. Negative for palpitations. Gastrointestinal: Negative for abdominal pain, diarrhea, nausea and vomiting. Genitourinary: Negative for dysuria. Musculoskeletal: Negative for myalgias. Skin: Negative for rash. Neurological: Negative for weakness and headaches. Psychiatric/Behavioral: Negative for agitation. OBJECTIVE: Vitals: Blood pressure (!) 154/80, pulse 81, temperature 36.3 ??C (97.3 ??F), resp. rate 18, height 1.753 m, weight 120.4 kg, SpO2 95 %. Max Blood Pressure: Systolic (24hrs), Av , Min:119 , Max:154 Diastolic (24hrs), Av, Min:58, Max:80 Physical Exam: General: Sitting upright in acute distress , NC in place Eyes: conjunctivae sclerae clear, PERRL, EOMI HENT: Atraumatic, normocephalic, buccal mucosa, palate and tongue WNL Neck: supple, Lungs: Equal air entry bilaterally, clear to auscultation,increased wheezes , increased WOB, NC in place Heart: RRR, normal S1, S2, no murmur, gallops, or rubs. 2+ pitting edema Abdomen: soft, nontender, nondistended, + bowel sounds, no organomegally, or masses Neuro: Alert, oriented X3, no focal neurological signs, moving all 4 extremities, Extremities: 2+ pitting edema to the stevens Skin: warm, no pallor, no cyanosis, no rashes, no ecchymoses Psych: normal affect Patient Data: I/O's: Intake/Output Summary (Last 24 hours) at 01/03/2023 0643 Last data filed at 01/03/2023 0400 Gross per 24 hour Intake 480 ml Output 575 ml Net -95 ml Weight change: Height/Weight: Admission:Weight: 121.7 kg Today's: Weight: 120.4 kg BMI: Body mass index is 39.17 kg/m??. Current Medications: albuterol, , albuterol, 2.5 mg, RTQ6HR [Held by Provider] amLODIPine, 10 mg, DAILY aspirin, 81 mg, DAILY AT 0800 [Held by Provider] cetirizine, 10 mg, DAILY cholecalciferol, 1,000 Units, DAILY enoxaparin (LOVENOX) injection, 40 mg, Q12HR escitalopram, 20 mg, DAILY fenofibrate, 145 mg, WITH BREAKFAST [Held by Provider] furosemide, 40 mg, BID gabapentin, 100 mg, QHS [Held by Provider] hydroCHLOROthiazide, 25 mg, DAILY lidocaine, 1 Patch, DAILY [Held by Provider] losartan, 100 mg, DAILY melatonin, 5 mg, QHS [Held by Provider] spironolactone, 25 mg, DAILY [Held by Provider] tiotropium, 1 Capsule, RTDAILY acetaminophen liquid, 650 mg, [id number] ondansetron, 4 mg, [id number] Lab Results: Recent Labs 12/29/22 0538 12/31/22 0417 01/01/23 0358 WBC 5.15 5.16 5.57 HEMOGLOBIN 9.2* 9.8* 9.7* HEMATOCRIT 29.3* 30.0* 30.0* NEUTROPHIL # 3.95 4.08 3.69 NEUTROPHIL % 78 79 67 MCV 97.3 96.2 96.2 PLATELET 80* 105* 157 Recent Labs 01/02/23 0532 01/02/23 1644 01/03/23 0545 SODIUM 133* 132* 129* POTASSIUM 4.2 4.4 4.3 CHLORIDE 100 99 97* GLUCOSE 136* 148* 143* BUN 78* 82* 84* CREATININE 1.99* 2.04* 2.26* Recent Labs 01/02/23 0532 01/02/23 1644 01/03/23 0545 MAGNESIUM 2.1 2.2 2.2 Recent Labs 01/02/23 0532 01/02/23 1644 01/03/23 0545 PHOSPHORUS 4.9* 4.7 5.1* Diagnostics (Reviewed): CTA CHEST W & W/O IV CONTRAST Result Date: 12/30/2022 IMPRESSION: 1. Mildly enlarged heart. Diffuse coronary artery atherosclerosis status post coronary artery bypass. Previous aortic valve repair. 2. There is aortic and iliac atherosclerosis without evidence of aneurysm or significant aortoiliac stenosis. There is mild to moderate stenosis at the origin of the SMA and suspected chronic right renal artery stenosis with some asymmetric right renal atrophy. 3. Minimal pleural effusions and dependent atelectasis bilaterally. Emphysema and predominantly right sided alveolar and groundglass pulmonary opacities suspected to reflect asymmetric edema inthis setting. 4. More focal groundglass nodule within [...] hip arthroplasty. Findings discussed with Dr. Engle. Reading Doctor: Rupali Li Electronic Signature by: Rupali Li XRAY CHEST 1 VIEW Result Date: 01/01/2023 Findings/impression: Progressive heterogeneous right upper lobe airspace opacity, likely pneumonia with differential to include asymmetric pulmonary edema. No other interval changes. Stable cardiomegaly and pulmonary vascular congestion. No large pleural effusions. Reading Doctor: Ean Berumen El ectronic Signature by: Ean Berumen CTA ABDOMEN PELVIS W & W/O IV CONTRAST Result Date: 12/30/2022 IMPRESSION: 1. Mildly enlarged heart. Diffuse coronary artery atherosclerosis status post coronary artery bypass. Previous aortic valve repair. 2. There is aortic and iliac atherosclerosis without evidence of aneurysm or significant aortoiliac stenosis. There is mild to moderate stenosis at the origin of the SMA and suspected chronic right renal artery stenosis with some asymmetric right renal atrophy. 3. Minimal pleural effusions and dependent atelectasis bilaterally. Emphysema and predominantly right sided alveolar and groundglass pulmonary opacities suspected to reflect asymmetric edema inthis setting. 4. More focal groundglass nodule within [...] hip arthroplasty. Findings discussed with Dr. Engle. Reading Doctor: Rupali Li Electronic Signature by: Rupali Li ECHO Result Date: 12/28/2022 Reason for Exam: Chest Pain Date of Service: 12/28/2022 Interpretation Summary There is no comparison study available. Patient Height 175.0 cm Patient Weight 127.0 kg Systolic Pressure 132 mmHg Diastolic Pressure 53 mmHg Study Location ECH BSA 2.4 m^2 Procedure: A complete two-dimensional transthoracic echocardiogram was performed (2D, M-mode, spectral and color flow Doppler). Study Quality: Fair. The study was technically difficult with many images being suboptimal in quality. A contrast injection of Definity was performed to improve assessment of LV function. Left Ventricle: The left ventricular mass index is increased. There is mild concentric left ventricular hypertrophy. LVEDV 299 ml with BSA 2.4 m2 The ejection fraction measured by 2D BP MOD is41%. The LV ejection fraction is severely decreased. Akinesis of the apex and periapical segments, anteroseptum with better motion of the LV base representing, until proven otherwise, LAD territory issues on a background of moderate aortic stenosis. There is no thrombus. LV diastolic function can not be accurately assessed. E/E' averaged>13 Left Atrium: The left atrial volume is mildly increased. Right Atrium: Right atrial size is normal. Right Ventricle: The right ventricular systolic function is normal. Aortic Valve: Focal calcification. The aortic valve is not well visualized. The peak aortic valve velocity 385 cm/s. Aortic mean pressure gradient= 32 mmHg. The aortic valve velocity ratio was calculated at 0.27. Mitral Valve: Both leaflets are pliable and mobile. There is trace mitral regurgitation. Tricuspid Valve: The tricuspid valve is not well visualized. There was insufficient TR detected to calculate RV systolic pr essure. Pulmonic Valve: The pulmonic valve is not well visualized. Trace pulmonic valvular regurgitation. Arteries: The aortic root is normal size. There is aortic root sclerosis/calcification. Aortic arch not seen well. Venous: Severely dilated inferior vena cava. Pericardium/Pleura: There is no pericardial effusion. MMode 2D Measurements & Calculations IVSd - 1.2 cm LVIDd - 5.9 cm LVIDs - 4.7 cm LVPWd - 1.1 cm IVS/LVPW - 1.1 FS - 20.9 % EDV(Teich) - 172.5 ml ESV(Teich) - 100.2 ml EF(Teich) - 41.9 % EF (est.) - 41.1 % EDV(cubed) - 204.3 ml ESV(cubed) - 101 ml EF(cubed) - 50.6 % LV mass(C)d - 277.7 grams LV mass(C)dI - 116.6 grams/m^2 SV(Teich) - 72.4 ml SI(Teich) - 30.4 ml/m^2 SV(cubed) - 103.3 ml SI(cubed) - 43.4 ml/m^2 Ao root diam - 3.4 cm Ao root area - 9.3 cm^2 LA dimension - 4.7 cm LA/Ao - 1.4 LVLd ap4 - 11.6 cm EDV(MOD-sp4) - 289 ml LVLs ap4 - 10.1 cm ESV(MOD-sp4) - 176 ml EF(MOD-sp4) - 39.1 % LVLd ap2 - 11.3 cm EDV(MOD- sp2) - 302 ml LVLs ap2 - 10.1 cm ESV(MOD-sp2) - 176 ml EF(MOD-sp2) - 41.7 % SV(MOD-sp4) - 113 ml SI(MOD-sp4) - 47.5 ml/m^2 SV(MOD-sp2) - 126 ml SI(MOD-sp2) - 52.9 ml/m^2 Doppler Measurements & Calculations MV E max bee - 93.3 cm/sec MV A max bee - 113.7 cm/sec MV E/A - 0.82 MV dec time - 0.17 sec Ao V2 max - 330.8 cm/sec Ao max PG - 46.5 mmHg Ao max PG (full) - 42.4 mmHg Ao V2 mean - 223.4 cm/sec Ao mean PG - 24.8 mmHg Ao mean PG (full) - 22.8 mmHg Ao V2 VTI - 64.6 cm LVOT max gradient - 4.2 mmHg LV V1 mean PG - 2 mmHg LVOT max bee - 101.7 cm/sec LV V1 mean - 68.2 cm/sec LV V1 VTI - 20.4 cm SV(Ao) - 600 ml SI(Ao) - 252 ml/m^2 PA V2 max - 121.7 cm/sec PA max PG - 5.9 mmHg Conclusion The study was technically difficult with many images beingsuboptimal in quality. The left ventricular mass index is increased. E/E' averaged >13 The ejection fraction measured by 2D BP MOD is41%. Akinesis of the apex and periapical segments, anteroseptumwith better motion of the LV base representing, until proven otherwise, LAD territory issues on a background of moderate aortic stenosis. InterpretingPhysician:Interpreting Physician: Papi Delcid, electronically signed on 2022-12-28 16:16:52.52 EKG: Results for orders placed or performed during the hospital encounter of 12/28/22 (from the past 24 hour(s)) EKG 12 LEAD Collection Time: 01/01/23 5:17 AM Test Value Low-High EKG Text INTERFACED DOCUMENTS - [facility] - ABNORMAL ECG - Sinus rhythm normal P axis, V-rate 60-99 Left bundle branch block QRSd>, broad/notched R ST elevation secondary to IVCD Multiple VCG criteria When compared with ECG of 29-Dec-2022 10:18:05, Nonspecific significant change Reading Physician [id number] Heart Rate 94 P-R Interval 201 P [place] 77 QRS Duration 140 QT Internal 397 QTcB 498 QRS [place] 7 I-40 [place] 36 T-40 [place] -37 T Wave [place] [address] [place] 225 Yvrose Thomas MD PGY1 Resident - Internal Medicine [facility], [facility] * Mary Chavez RN - 01/02/2023 5:36 PM EDT End of Shift Summary Pertinent Events This Shift: PFT performed. No c/o chest pain or shortness of breath this shift. Pt resting quietly in bed in no apparent signsof distress. All safety measures in place. Continue with established POC. Nursing Concerns: None at this time Patient/Family Concerns: None at this time Mental Status: A&O x4 Pain Control: Denied pain this shift. Mobility: independent Discharge Plans: When medically stable, Planning ongoing. * Yvrose Thomas MD - 01/02/2023 6:30 AM EDT Images from the original note were not included. [facility] - Cardiology Teaching Service Progress Note Service Pager (call #1, internal sales engineer) #[phone] Service Pager (call #2, senior) #[phone] PATIENT IDENTIFICATION: Patient Name: Raghu Rosenthal Age: 77yrs Sex: Male : 1945 MEG: [id number] Admit Date: 12/28/2022 1:45 PM Today's Date: 01/02/2023 Length of Stay: 4 days Admit Diagnosis: NSTEMI (non-ST elevated myocardial infarction) ([facility]) [I21.4] Primary Diagnosis: Acute coronary syndrome ([facility]) Room: [place] [address] PCP: Williams Yip MD Primary Insurance: @[employer]@ Secondary Insurance: @[employer]@ Interval Events (Previous 24-hrs): Overnight had an e/o chest pain , reproducible on palpation , EKG showed no interval changes, troponin elevated but downtreding , BMP stable SUBJECTIVE: Patient seen and examined at the bedside. Reports that he has sporadic e/o chest pressure and pain through the night , resolve currently , continues to require O2 support. Reports improved LE swelling and SOB ASSESSMENT & PLAN: Raghu Rosenthal is a 77yrs old Male with PMH of CAD s/p CABG x2 in [place] 10 years ago, HTN, HLD, porcine AVR who initially presented to [place] ED with complaints of SOB and midchest pressure. Transferred to [facility] in cardiogenic shock and admitted to CICU. Now downgraded to the floor for HFrEF exacerbation with severe . Cardiogenic Shock - resolved NSTEMI HFrEF Trop peak 69 and downtrended H/o CABGx2 10 years ago Cath 12/28/22 1. Severe three-vessel disease with patent AVERY to LAD, intermediate stenosis in mid RCA, 60% distal left main stenosis. Culprit for his VA appears to be an occluded SVG to ramus graft. There is flowin the ramus with proximal 70% stenosis. 2. He is also noted to have severely degenerated bioprosthetic aortic valve, invasive gradients reviewed severely stenotic with mean gradient over 40 mmHg. 3. Decompensated heart failure with preserved cardiac output. We had discontinued his Levophed on arrival to the [facility]. LVEDP 30mmHg. Echo 12/28/22 with EF 41% Plan : - ASA 81mg , tricor 145mg -Lasix held to maintain preload -Holding losartan in setting of FILIBERTO -Monitor I/Os -daily weights -BMP q12 hrs Severe Degenerated Bioprosthetic Valve CT A/P 1. Mildly enlarged heart. Diffuse coronary artery [...] Diverticulosis. Partial colectomy. 8. Bilateral hip arthroplasty. -CT surgery consulted regarding candidacy for TAVR -AVOID NITRATES AND BB since patient is preload dependent -PFT for surgical clearance - patient was unable to complete test fully due to SOB Acute Hypoxic Respiratory Failure Diurese carefully Wean O2 when possible CXR 12/28/22 with pulmonary edema Duonebs q4hr Incentive spirometry FILIBERTO on CKD II Avoid nephrotoxins Avoid losartan HTN Holding home meds HLD Held statin due to statin allergy FEN: Fluids: none Electrolytes: Will replace to keep K >4, Phos >3, Mg >2 Nutrition: cardiac diet DVT Prophylaxis: heparin/enoxaparin/SCD Dispo: CIU Code Status: Full Code The assessment and plan above was discussed with the attending physician, Jeyson Richard MD Review of Systems: Review of Systems Constitutional: Positive for appetite change and fatigue. Negative for chills and fever. HENT: Negative for sore throat. Respiratory: Positive for cough, chest tightness, shortness of breath and wheezing. Negative for stridor. Cardiovascular: Positive for chest pain and leg swelling. Negative for palpitations. Gastrointestinal: Negative for abdominal pain, diarrhea, nausea and vomiting. Genitourinary: Negative for dysuria. Musculoskeletal: Negative for myalgias. Skin: Negative for rash. Neurological: Negative for weakness and headaches. Psychiatric/Behavioral: Negative for agitation. OBJECTIVE: Vitals: Blood pressure 122/74, pulse 101, temperature 36.5 ??C (97.7 ??F), resp. rate 17, height 1.753 m, weight 121.9 kg, SpO2 95 %. Max Blood Pressure: Systolic (24hrs), Av , Min:117 , Max:128 Diastolic (24hrs), Av, Min:39, Max:74 Physical Exam: General: Laying in bed with NC in place Eyes: conjunctivae sclerae clear, PERRL, EOMI HENT: Atraumatic, normocephalic, buccal mucosa, palate and tongue WNL Neck: supple, Lungs: Equal air entry bilaterally, clear to auscultation,continues to have scattered wheezes , increased WOB Heart: RRR, normal S1, S2, no murmur, gallops, or rubs. 1+ pitting edema Abdomen: soft, nontender, nondistended, + bowel sounds, no organomegally, or masses Neuro: Alert, oriented X3, no focal neurological signs, moving all 4 extremities, Extremities: 1+ pitting edema to the stevens Skin: warm, no pallor, no cyanosis, no rashes, no ecchymoses Psych: normal affect Patient Data: I/O's: Intake/Output Summary (Last 24 hours) at 01/02/2023 0630 Last data filed at 01/02/2023 0100 Gross per 24 hour Intake 0 ml Output 1235 ml Net -1235 ml Weight change: Height/Weight: Admission:Weight: 121.7 kg Today's: Weight: 121.9 kg BMI: Body mass index is 39.68 kg/m??. Current Medications: albuterol, 2.5 mg, RTQ6HR [Held by Provider] amLODIPine, 10 mg, DAILY aspirin, 81 mg, DAILY AT 0800 [Held by Provider] cetirizine, 10 mg, DAILY cholecalciferol, 1,000 Units, DAILY enoxaparin (LOVENOX) injection, 40 mg, Q12HR escitalopram, 20 mg, DAILY fenofibrate, 145 mg, WITH BREAKFAST furosemide, 40 mg, BID [Held by Provider] hydroCHLOROthiazide, 25 mg, DAILY [Held by Provider] losartan, 100 mg, DAILY melatonin, 5 mg, QHS [Held by Provider] spironolactone, 25 mg, DAILY [Held by Provider] tiotropium, 1 Capsule, RTDAILY acetaminophen liquid, 650 mg, [id number] ondansetron, 4 mg, [id number] Lab Results: Recent Labs 12/29/22 0538 12/31/22 0417 01/01/23 0358 WBC 5.15 5.16 5.57 HEMOGLOBIN 9.2* 9.8* 9.7* HEMATOCRIT 29.3* 30.0* 30.0* NEUTROPHIL # 3.95 4.08 3.69 NEUTROPHIL % 78 79 67 MCV 97.3 96.2 96.2 PLATELET 80* 105* 157 Recent Labs 01/01/23 0358 01/01/23 0432 01/01/23 1218 01/01/23235101/02/23 0532 SODIUM 133* 134* 133* POTASSIUM 4.6* 4.2 4.2 CHLORIDE 101 100 100 GLUCOSE POCT < > 136* GLUCOSE 127* 135* 136* BUN 73* 77* 78* CREATININE 1.84* 1.94* 1.99* < > = values in this interval not displayed. Recent Labs 01/01/23 0358 01/01/23235101/02/23 0532 MAGNESIUM 2.0 2.0 2.1 Recent Labs 01/01/23 0358 01/01/23 2352 01/02/23 0532 PHOSPHORUS 4.2 4.8* 4.9* Diagnostics (Reviewed): CTA CHEST W & W/O IV CONTRAST Result Date: 12/30/2022 IMPRESSION: 1. Mildly enlarged heart. Diffuse coronary artery atherosclerosis status post coronary artery bypass. Previous aortic valve repair. 2. There is aortic and iliac atherosclerosis without evidence of aneurysm or significant aortoiliac stenosis. There is mild to moderate stenosis at the origin of the SMA and suspected chronic right renal artery stenosis with some asymmetric right renal atrophy. 3. Minimal pleural effusions and dependent atelectasis bilaterally. Emphysema and predominantly right sided alveolar and groundglass pulmonary opacities suspected to reflect asymmetric edema inthis setting. 4. More focal groundglass nodule within [...] hip arthroplasty. Findings discussed with Dr. Engle. Reading Doctor: Rupali Li Electronic Signature by: Rupali Li XRAY CHEST 1 VIEW Result Date: 01/01/2023 Findings/impression: Progressive heterogeneous right upper lobe airspace opacity, likely pneumonia with differential to include asymmetric pulmonary edema. No other interval changes. Stable cardiomegaly and pulmonary vascular congestion. No large pleural effusions. Reading Doctor: Ean Berumen ectronic Signature by: Ean Berumen XRAY CHEST 1 VIEW Result Date: 12/28/2022 IMPRESSION: Pulmonary vascular congestion and edema. Possible minimal bilateral pleural effusions. Reading Doctor: Fatou Gomez Electronic Signature by: Fatou Gomez CTA ABDOMEN PELVIS W & W/O IV CONTRAST Result Date: 12/30/2022 IMPRESSION: 1. Mildly enlarged heart. Diffuse coronary artery atherosclerosis status post coronary artery bypass. Previous aortic valve repair. 2. There is aortic and iliac atherosclerosis without evidence of aneurysm or significant aortoiliac stenosis. There is mild to moderate stenosis at the origin of the SMA and suspected chronic right renal artery stenosis with some asymmetric right renal atrophy. 3. Minimal pleural effusions and dependent atelectasis bilaterally. Emphysema and predominantly right sided alveolar and groundglass pulmonary opacities suspected to reflect asymmetric edema inthis setting. 4. More focal groundglass nodule within [...] hip arthroplasty. Findings discussed with Dr. Engle. Reading Doctor: Rupali Li Electronic Signature by: Rupali Li ECHO Result Date: 12/28/2022 Reason for Exam: Chest Pain Date of Service: 12/28/2022 Interpretation Summary There is no comparison study available. Patient Height 175.0 cm Patient Weight 127.0 kg Systolic Pressure 132 mmHg Diastolic Pressure 53 mmHg Study Location E[facility] BSA 2.4 m^2 Procedure: A complete two-dimensional transthoracic echocardiogram was performed (2D, M-mode, spectral and color flow Doppler). Study Quality: Fair. The study was technically difficult with many images being suboptimal in quality. A contrast injection of Definity was performed to improve assessment of LV function. Left Ventricle: The left ventricular mass index is increased. There is mild concentric left ventricular hypertrophy. LVEDV 299 ml with BSA 2.4 m2 The ejection fraction measured by 2D BP MOD is41%. The LV ejection fraction is severely decreased. Akinesis of the apex and periapical segments, anteroseptum with better motion of the LV base representing, until proven otherwise, LAD territory issues on a background of moderate aortic stenosis. There is no thrombus. LV diastolic function can not be accurately assessed. E/E' averaged>13 Left Atrium: The left atrial volume is mildly increased. Right Atrium: Right atrial size is normal. Right Ventricle: The right ventricular systolic function is normal. Aortic Valve: Focal calcification. The aortic valve is not well visualized. The peak aortic valve velocity 385 cm/s. Aortic mean pressure gradient= 32 mmHg. The aortic valve velocity ratio was calculated at 0.27. Mitral Valve: Both leaflets are pliable and mobile. There is trace mitral regurgitation. Tricuspid Valve: The tricuspid valve is not well visualized. There was insufficient TR detected to calculate RV systolic pr essure. Pulmonic Valve: The pulmonic valve is not well visualized. Trace pulmonic valvular regurgitation. Arteries: The aortic root is normal size. There is aortic root sclerosis/calcification. Aortic arch not seen well. Venous: Severely dilated inferior vena cava. Pericardium/Pleura: There is no pericardial effusion. MMode 2D Measurements & Calculations IVSd - 1.2 cm LVIDd - 5.9 cm LVIDs - 4.7 cm LVPWd - 1.1 cm IVS/LVPW - 1.1 FS - 20.9 % EDV(Teich) - 172.5 ml ESV(Teich) - 100.2 ml EF(Teich) - 41.9 % EF (est.) - 41.1 % EDV(cubed) - 204.3 ml ESV(cubed) - 101 ml EF(cubed) - 50.6 % LV mass(C)d - 277.7 grams LV mass(C)dI - 116.6 grams/m^2 SV(Teich) - 72.4 ml SI(Teich) - 30.4 ml/m^2 SV(cubed) - 103.3 ml SI(cubed) - 43.4 ml/m^2 Ao root diam - 3.4 cm Ao root area - 9.3 cm^2 LA dimension - 4.7 cm LA/Ao - 1.4 LVLd ap4 - 11.6 cm EDV(MOD-sp4) - 289 ml LVLs ap4 - 10.1 cm ESV(MOD-sp4) - 176 ml EF(MOD-sp4) - 39.1 % LVLd ap2 - 11.3 cm EDV(MOD- sp2) - 302 ml LVLs ap2 - 10.1 cm ESV(MOD-sp2) - 176 ml EF(MOD-sp2) - 41.7 % SV(MOD-sp4) - 113 ml SI(MOD-sp4) - 47.5 ml/m^2 SV(MOD-sp2) - 126 ml SI(MOD-sp2) - 52.9 ml/m^2 Doppler Measurements & Calculations MV E max bee - 93.3 cm/sec MV A max bee - 113.7 cm/sec MV E/A - 0.82 MV dec time - 0.17 sec Ao V2 max - 330.8 cm/sec Ao max PG - 46.5 mmHg Ao max PG (full) - 42.4 mmHg Ao V2 mean - 223.4 cm/sec Ao mean PG - 24.8 mmHg Ao mean PG (full) - 22.8 mmHg Ao V2 VTI - 64.6 cm LVOT max gradient - 4.2 mmHg LV V1 mean PG - 2 mmHg LVOT max bee - 101.7 cm/sec LV V1 mean - 68.2 cm/sec LV V1 VTI - 20.4 cm SV(Ao) - 600 ml SI(Ao) - 252 ml/m^2 PA V2 max - 121.7 cm/sec PA max PG - 5.9 mmHg Conclusion The study was technically difficult with many images beingsuboptimal in quality. The left ventricular mass index is increased. E/E' averaged >13 The ejection fraction measured by 2D BP MOD is41%. Akinesis of the apex and periapical segments, anteroseptumwith better motion of the LV base representing, until proven otherwise, LAD territory issues on a background of moderate aortic stenosis. InterpretingPhysician:Interpreting Physician: Papi Delcid, electronically signed on 2022-12-28 16:16:52.52 EKG: Results for orders placed or performed during the hospital encounter of 12/28/22 (from the past 24 hour(s)) EKG 12 LEAD Collection Time: 01/01/23 5:17 AM Test Value Low-High EKG Text INTERFACED DOCUMENTS - [facility] - ABNORMAL ECG - Sinus rhythm normal P axis, V-rate 60-99 Left bundle branch block QRSd>, broad/notched R ST elevation secondary to IVCD Multiple VCG criteria When compared with ECG of 29-Dec-2022 10:18:05, Nonspecific significant change Reading Physician [id number] Heart Rate 94 P-R Interval 201 P [place] 77 QRS Duration 140 QT Internal 397 QTcB 498 QRS [place] 7 I-40 [place] 36 T-40 [place] -37 T Wave [place] [address] [place] 225 Yvrose Thomas MD PGY1 Resident - Internal Medicine [facility], [facility] Associated attestation - Jeyson Richard MD - 01/02/2023 3:47 PM EDT ATTENDING ENTERPRISE APPLICATION ARCHITECT ATTESTATION: I have seen and examined the patient with on January 02. I have reviewed the chartand agree with the findings and recommendations as indicated above. Awaiting CT srgery input. Electronically Signed By: Minor Richard MD * Yvrose Thomas MD - 01/01/2023 1:51 PM EDT Images from the original note were not included. [facility] - Cardiology Teaching Service Progress Note Service Pager (call #1, internal sales engineer) #[phone] Service Pager (call #2, senior) #[phone] PATIENT IDENTIFICATION: Patient Name: Raghu Rosenthal Age: 77yrs Sex: Male : 1945 MEG: [id number] Admit Date: 12/28/2022 1:45 PM Today's Date: 01/01/2023 Length of Stay: 4 days Admit Diagnosis: NSTEMI (non-ST elevated myocardial infarction) ([facility]) [I21.4] Primary Diagnosis: Acute coronary syndrome ([facility]) Room: [place] [address] PCP: Williams Yip MD Primary Insurance: @[employer]@ Secondary Insurance: @[employer]@ Interval Events (Previous 24-hrs): Overnight patient had CP , pressure like substernally , radiating to the left jaw and shoulder. Repeat trops 19.60 , EKG shows no significant change as compared to previous ones - mild NUNO , LBBB, resolved with morphine. SUBJECTIVE: Patient seen and examined at the bedside. Reports improvement in CP. Continues to require O2 via NC ASSESSMENT & PLAN: Raghu Rosenthal is a 77yrs old Male with PMH of CAD s/p CABG x2 in [place] 10 years ago, HTN, HLD, porcine AVR who initially presented to [place] ED with complaints of SOB and midchest pressure. Transferred to [facility] in cardiogenic shock and admitted to CICU. Now downgraded to the floor for HFrEF exacerbation with severe . Cardiogenic Shock - resolved NSTEMI HFrEF Trop peak 70 and downtrended H/o CABGx2 10 years ago Cath 12/28/22 1. Severe three-vessel disease with patent AVERY to LAD, intermediate stenosis in mid RCA, 60% distal left main stenosis. Culprit for his VA appears to be an occluded SVG to ramus graft. There is flowin the ramus with proximal 70% stenosis. 2. He is also noted to have severely degenerated bioprosthetic aortic valve, invasive gradients reviewed severely stenotic with mean gradient over 40 mmHg. 3. Decompensated heart failure with preserved cardiac output. We had discontinued his Levophed on arrival to the [facility]. LVEDP 30mmHg. Echo 12/28/22 with EF 41% - ASA 81mg , tricor 145mg -Lasix increased to 40mg IV BID -Holding losartan in setting of FILIBERTO -Monitor I/Os -daily weights -BMP q12 hrs Severe Degenerated Bioprosthetic Valve CT A/P 1. Mildly enlarged heart. Diffuse coronary artery [...] Diverticulosis. Partial colectomy. 8. Bilateral hip arthroplasty. -Consult CT surgery regarding candidacy for TAVR -AVOID NITRATES AND BB since patient is preload dependent Acute Hypoxic Respiratory Failure Diurese carefully Wean O2 when possible CXR 12/28/22 with pulmonary edema Duonebs q4hr Incentive spirometry FILIBERTO on CKD II Avoid nephrotoxins Avoid losartan HTN Antihypertensives held given resent shock HLD Held statin due to statin allergy FEN: Fluids: none Electrolytes: Will replace to keep K >4, Phos >3, Mg >2 Nutrition: cardiac diet DVT Prophylaxis: heparin/enoxaparin/SCD Dispo: CIU Code Status: Full Code The assessment and plan above was discussed with the attending physician, Jeyson Richard MD Review of Systems: Review of Systems Constitutional: Positive for appetite change and fatigue. Negative for chills and fever. HENT: Negative for sore throat. Respiratory: Positive for cough and chest tightness. Negative for shortness of breath, wheezing andstridor. Cardiovascular: Positive for chest pain and leg swelling. Negative for palpitations. Gastrointestinal: Negative for abdominal pain, diarrhea, nausea and vomiting. Genitourinary: Negative for dysuria. Musculoskeletal: Negative for myalgias. Skin: Negative for rash. Neurological: Negative for weakness and headaches. Psychiatric/Behavioral: Negative for agitation. OBJECTIVE: Vitals: Blood pressure 117/64, pulse 88, temperature 36.6 ??C (97.9 ??F), resp. rate 21, height 1.753 m, weight 121.9 kg, SpO2 98 %. Max Blood Pressure: Systolic (24hrs), Av , Min:98 , Max:128 Diastolic (24hrs), Av, Min:57, Max:81 Physical Exam: General: Laying in bed with NC in place, NAD Eyes: conjunctivae sclerae clear, PERRL, EOMI HENT: Atraumatic, normocephalic, buccal mucosa, palate and tongue WNL Neck: supple, Lungs: Equal air entry bilaterally, clear to auscultation,scattered wheezes Heart: RRR, normal S1, S2, no murmur, gallops, or rubs. 1+ pitting edema to mid stevens. Abdomen: soft, nontender, nondistended, + bowel sounds, no organomegally, or masses Neuro: Alert, oriented X3, no focal neurological signs, moving all 4 extremities, Extremities: 1+ pitting edema to the stevens Skin: warm, no pallor, no cyanosis, no rashes, no ecchymoses Psych: normal affect Patient Data: I/O's: Intake/Output Summary (Last 24 hours) at 01/01/2023 1445 Last data filed at 01/01/2023 1200 Gross per 24 hour Intake 0 ml Output 1400 ml Net -1400 ml Weight change: -0.136 kg Height/Weight: Admission:Weight: 121.7 kg Today's: Weight: 121.9 kg BMI: Body mass index is 39.68 kg/m??. Current Medications: albuterol, 2.5 mg, RTQ6HR [Held by Provider] amLODIPine, 10 mg, DAILY aspirin, 81 mg, DAILY AT 0800 budesonide, 0.5 mg, RTBID [Held by Provider] cetirizine, 10 mg, DAILY cholecalciferol, 1,000 Units, DAILY enoxaparin (LOVENOX) injection, 40 mg, Q12HR escitalopram, 20 mg, DAILY fenofibrate, 145 mg, WITH BREAKFAST [Held by Provider] hydroCHLOROthiazide, 25 mg, DAILY [Held by Provider] losartan, 100 mg, DAILY melatonin, 5 mg, QHS [Held by Provider] spironolactone, 25 mg, DAILY [Held by Provider] tiotropium, 1 Capsule, RTDAILY acetaminophen liquid, 650 mg, [id number] ondansetron, 4 mg, [id number] Lab Results: Recent Labs 12/29/22 0538 12/31/2241601/01/23357 WBC 5.15 5.16 5.57 HEMOGLOBIN 9.2* 9.8* 9.7* HEMATOCRIT 29.3* 30.0* 30.0* NEUTROPHIL # 3.95 4.08 3.69 NEUTROPHIL % 78 79 67 MCV 97.3 96.2 96.2 PLATELET 80* 105* 157 Recent Labs 12/30/22 1054 12/31/22 0417 12/31/22 1608 12/31/22 1754 12/31/22 1930 01/01/23 0358 01/01/23 0432 01/01/23 0708 01/01/23 0836 01/01/23 1218 SODIUM 134* 129* 135* 133* POTASSIUM 4.6* 4.5 4.6* CHLORIDE 104 102 102 101 GLUCOSE POCT < > 136* 128* 136* GLUCOSE 128* 125* < > 107* 144* 127* BUN 60* 62* < > 63* 70* 73* CREATININE 1.46* 1.77* < > 1.75* 1.92* 1.84* < > = values in this interval not displayed. Recent Labs 12/29/22 0538 12/31/2241601/01/23 035 MAGNESIUM 2.1 2.1 2.0 Recent Labs 12/28/22 1417 12/29/22 0538 01/01/23 0358 PHOSPHORUS 2.9 3.7 4.2 Diagnostics (Reviewed): CTA CHEST W & W/O IV CONTRAST Result Date: 12/30/2022 IMPRESSION: 1. Mildly enlarged heart. Diffuse coronary artery atherosclerosis status post coronary artery bypass. Previous aortic valve repair. 2. There is aortic and iliac atherosclerosis without evidence of aneurysm or significant aortoiliac stenosis. There is mild to moderate stenosis at the origin of the SMA and suspected chronic right renal artery stenosis with some asymmetric right renal atrophy. 3. Minimal pleural effusions and dependent atelectasis bilaterally. Emphysema and predominantly right sided alveolar and groundglass pulmonary opacities suspected to reflect asymmetric edema inthis setting. 4. More focal groundglass nodule within [...] hip arthroplasty. Findings discussed with Dr. Engle. Reading Doctor: Rupali Li Electronic Signature by: Rupali Li XRAY CHEST 1 VIEW Result Date: 01/01/2023 Findings/impression: Progressive heterogeneous right upper lobe airspace opacity, likely pneumonia with differential to include asymmetric pulmonary edema. No other interval changes. Stable cardiomegaly and pulmonary vascular congestion. No large pleural effusions. Reading Doctor: Ean Berumenronic Signature by: Ean Berumen XRAY CHEST 1 VIEW Result Date: 12/28/2022 IMPRESSION: Pulmonary vascular congestion and edema. Possible minimal bilateral pleural effusions. Reading Doctor: Fatou Gomez Electronic Signature by: Fatou Gomez CTA ABDOMEN PELVIS W & W/O IV CONTRAST Result Date: 12/30/2022 IMPRESSION: 1. Mildly enlarged heart. Diffuse coronary artery atherosclerosis status post coronary artery bypass. Previous aortic valve repair. 2. There is aortic and iliac atherosclerosis without evidence of aneurysm or significant aortoiliac stenosis. There is mild to moderate stenosis at the origin of the SMA and suspected chronic right renal artery stenosis with some asymmetric right renal atrophy. 3. Minimal pleural effusions and dependent atelectasis bilaterally. Emphysema and predominantly right sided alveolar and groundglass pulmonary opacities suspected to reflect asymmetric edema inthis setting. 4. More focal groundglass nodule within [...] hip arthroplasty. Findings discussed with Dr. Engle. Reading Doctor: Rupali Li Electronic Signature by: Rupali Li ECHO Result Date: 12/28/2022 Reason for Exam: Chest Pain Date of Service: 12/28/2022 Interpretation Summary There is no comparison study available. Patient Height 175.0 cm Patient Weight 127.0 kg Systolic Pressure 132 mmHg Diastolic Pressure 53 mmHg Study Location E[facility] BSA 2.4 m^2 Procedure: A complete two-dimensional transthoracic echocardiogram was performed (2D, M-mode, spectral and color flow Doppler). Study Quality: Fair. The study was technically difficult with many images being suboptimal in quality. A contrast injection of Definity was performed to improve assessment of LV function. Left Ventricle: The left ventricular mass index is increased. There is mild concentric left ventricular hypertrophy. LVEDV 299 ml with BSA 2.4 m2 The ejection fraction measured by 2D BP MOD is41%. The LV ejection fraction is severely decreased. Akinesis of the apex and periapical segments, anteroseptum with better motion of the LV base representing, until proven otherwise, LAD territory issues on a background of moderate aortic stenosis. There is no thrombus. LV diastolic function can not be accurately assessed. E/E' averaged>13 Left Atrium: The left atrial volume is mildly increased. Right Atrium: Right atrial size is normal. Right Ventricle: The right ventricular systolic function is normal. Aortic Valve: Focal calcification. The aortic valve is not well visualized. The peak aortic valve velocity 385 cm/s. Aortic mean pressure gradient= 32 mmHg. The aortic valve velocity ratio was calculated at 0.27. Mitral Valve: Both leaflets are pliable and mobile. There is trace mitral regurgitation. Tricuspid Valve: The tricuspid valve is not well visualized. There was insufficient TR detected to calculate RV systolic pr essure. Pulmonic Valve: The pulmonic valve is not well visualized. Trace pulmonic valvular regurgitation. Arteries: The aortic root is normal size. There is aortic root sclerosis/calcification. Aortic arch not seen well. Venous: Severely dilated inferior vena cava. Pericardium/Pleura: There is no pericardial effusion. MMode 2D Measurements & Calculations IVSd - 1.2 cm LVIDd - 5.9 cm LVIDs - 4.7 cm LVPWd - 1.1 cm IVS/LVPW - 1.1 FS - 20.9 % EDV(Teich) - 172.5 ml ESV(Teich) - 100.2 ml EF(Teich) - 41.9 % EF (est.) - 41.1 % EDV(cubed) - 204.3 ml ESV(cubed) - 101 ml EF(cubed) - 50.6 % LV mass(C)d - 277.7 grams LV mass(C)dI - 116.6 grams/m^2 SV(Teich) - 72.4 ml SI(Teich) - 30.4 ml/m^2 SV(cubed) - 103.3 ml SI(cubed) - 43.4 ml/m^2 Ao root diam - 3.4 cm Ao root area - 9.3 cm^2 LA dimension - 4.7 cm LA/Ao - 1.4 LVLd ap4 - 11.6 cm EDV(MOD-sp4) - 289 ml LVLs ap4 - 10.1 cm ESV(MOD-sp4) - 176 ml EF(MOD-sp4) - 39.1 % LVLd ap2 - 11.3 cm EDV(MOD- sp2) - 302 ml LVLs ap2 - 10.1 cm ESV(MOD-sp2) - 176 ml EF(MOD-sp2) - 41.7 % SV(MOD-sp4) - 113 ml SI(MOD-sp4) - 47.5 ml/m^2 SV(MOD-sp2) - 126 ml SI(MOD-sp2) - 52.9 ml/m^2 Doppler Measurements & Calculations MV E max bee - 93.3 cm/sec MV A max bee - 113.7 cm/sec MV E/A - 0.82 MV dec time - 0.17 sec Ao V2 max - 330.8 cm/sec Ao max PG - 46.5 mmHg Ao max PG (full) - 42.4 mmHg Ao V2 mean - 223.4 cm/sec Ao mean PG - 24.8 mmHg Ao mean PG (full) - 22.8 mmHg Ao V2 VTI - 64.6 cm LVOT max gradient - 4.2 mmHg LV V1 mean PG - 2 mmHg LVOT max bee - 101.7 cm/sec LV V1 mean - 68.2 cm/sec LV V1 VTI - 20.4 cm SV(Ao) - 600 ml SI(Ao) - 252 ml/m^2 PA V2 max - 121.7 cm/sec PA max PG - 5.9 mmHg Conclusion The study was technically difficult with many images beingsuboptimal in quality. The left ventricular mass index is increased. E/E' averaged >13 The ejection fraction measured by 2D BP MOD is41%. Akinesis of the apex and periapical segments, anteroseptumwith better motion of the LV base representing, until proven otherwise, LAD territory issues on a background of moderate aortic stenosis. InterpretingPhysician:Interpreting Physician: Papi Delcid, electronically signed on 2022-12-28 16:16:52.52 EKG: Results for orders placed or performed during the hospital encounter of 12/28/22 (from the past 24 hour(s)) EKG 12 LEAD Collection Time: 01/01/23 5:17 AM Test Value Low-High EKG Text INTERFACED DOCUMENTS - [facility] - ABNORMAL ECG - Sinus rhythm normal P axis, V-rate 60-99 Left bundle branch block QRSd>, broad/notched R ST elevation secondary to IVCD Multiple VCG criteria When compared with ECG of 29-Dec-2022 10:18:05, Nonspecific significant change Reading Physician [id number] Heart Rate 94 P-R Interval 201 P [place] 77 QRS Duration 140 QT Internal 397 QTcB 498 QRS [place] 7 I-40 [place] 36 T-40 [place] -37 T Wave [place] [address] [place] 225 Yvrose Thomas MD PGY1 Resident - Internal Medicine BSOM, [facility] Associated attestation - Jeyson Richard MD - 01/01/2023 6:56 PM EDT ATTENDING ENTERPRISE APPLICATION ARCHITECT ATTESTATION: I have seen and examined the patient with Dr. Thomas on January 01. I have reviewed the chart and agree with the findings and recommendations as indicated above. Electronically Signed By: Minor Richard MD * Mike Rothman RN - 01/01/2023 5:57 AM EDT Pt complaint of chest tightness in AM, belt line feeder paged, ekg ordered, trop ordered, nitro tab (see mar), diuretics given, provider present at bedside. * Yvrose Thomas MD - 12/31/2022 1:37 PM EDT Images from the original note were not included. [facility] - Cardiology Teaching Service Progress Note Service Pager (call #1, internal sales engineer) #[phone] Service Pager (call #2, senior) #[phone] PATIENT IDENTIFICATION: Patient Name: Raghu Rosenthal Age: 77yrs Sex: Male : 1945 MEG: [id number] Admit Date: 12/28/2022 1:45 PM Today's Date: 12/31/2022 Length of Stay: 2 days Admit Diagnosis: NSTEMI (non-ST elevated myocardial infarction) ([facility]) [I21.4] Primary Diagnosis: Acute coronary syndrome ([facility]) [facility] PCP: Williams Yip MD Primary Insurance: @[employer]@ Secondary Insurance: @[employer]@ Interval Events (Previous 24-hrs): Per RN, no acute events overnight. SUBJECTIVE: Patient seen and examined at the bedside. ASSESSMENT & PLAN: Raghu Rosenthal is a 77yrs old Male with PMH of CAD s/p CABG x2 in [place] 10 years ago, HTN, HLD, porcine AVR who initially presented to [place] ED with complaints of SOB and midchest pressure. Transferred to [facility] in cardiogenic shock and admitted to CICU. Cardiogenic Shock - resolved NSTEMI HFrEF Trop peakc 69 and downtrended H/o CABGx2 10 years ago Cath 12/28/22 1. Severe three-vessel disease with patent AVERY to LAD, intermediate stenosis in mid RCA, 60% distal left main stenosis. Culprit for his VA appears to be an occluded SVG to ramus graft. There is flowin the ramus with proximal 70% stenosis. 2. He is also noted to have severely degenerated bioprosthetic aortic valve, invasive gradients reviewed severely stenotic with mean gradient over 40 mmHg. 3. Decompensated heart failure with preserved cardiac output. We had discontinued his Levophed on arrival to the [facility]. LVEDP 30mmHg. Echo 12/28/22 with EF 41% - ASA 81mg , lipitor - Start lasix 20mg IV -Holding losartan in setting of FILIBERTO -Monitor I/Os -daily weights Severe Degenerated Bioprosthetic Valve CT A/P 1. Mildly enlarged heart. Diffuse coronary artery [...] Diverticulosis. Partial colectomy. 8. Bilateral hip arthroplasty. -Patient will be discharged once stable and will be re-admitted for TAVR most likely on Sunday01/08/23 - Dr Monroe aware -careful diuresis Acute Hypoxic Respiratory Failure Diurese carefully Wean O2 when possible CXR 12/28/22 with pulmonary edema FILIBERTO on CKD II Avoid nephrotoxins Avoid losartan HTN Antihypertensives held given resent shock HLD Held statin due to statin allergy FEN: Fluids: none Electrolytes: Will replace to keep K >4, Phos >3, Mg >2 Nutrition: cardiac diet DVT Prophylaxis: heparin/enoxaparin/SCD Dispo: CIU Code Status: Full Code The assessment and plan above was discussed with the attending physician, Jeyson Richard MD Review of Systems: Review of Systems Constitutional: Positive for appetite change and fatigue. Negative for chills and fever. HENT: Negative for sore throat. Respiratory: Positive for cough. Negative for shortness of breath, wheezing and stridor. Cardiovascular: Positive for leg swelling. Negative for chest pain and palpitations. Gastrointestinal: Negative for abdominal pain, diarrhea, nausea and vomiting. Genitourinary: Negative for dysuria. Musculoskeletal: Negative for myalgias. Skin: Negative for rash. Neurological: Negative for weakness and headaches. Psychiatric/Behavioral: Negative for agitation. OBJECTIVE: Vitals: Blood pressure 132/79, pulse (!) 105, temperature 36.6 ??C (97.8 ??F), resp. rate 18, height 1.753 m, weight 122.1 kg, SpO2 91 %. Max Blood Pressure: Systolic (24hrs), Av , Min:110 , Max:135 Diastolic (24hrs), Av, Min:73, Max:81 Physical Exam: General: Sitting upright on bedside chair , tired appearing Eyes: conjunctivae sclerae clear, PERRL, EOMI HENT: Atraumatic, normocephalic, buccal mucosa, palate and tongue WNL Neck: supple, Lungs: Equal air entry bilaterally, clear to auscultation, without rales or wheezes Heart: RRR, normal S1, S2, no murmur, gallops, or rubs. 1+ pitting edema to mid stevens. Abdomen: soft, nontender, nondistended, + bowel sounds, no organomegally, or masses Neuro: Alert, oriented X3, no focal neurological signs, moving all 4 extremities, Extremities: no edema in lower extremities Skin: warm, no pallor, no cyanosis, no rashes, no ecchymoses Psych: normal affect Patient Data: I/O's: Intake/Output Summary (Last 24 hours) at 12/31/2022 1337 Last data filed at 12/31/2022 1100 Gross per 24 hour Intake 240 ml Output 300 ml Net -60 ml Weight change: -0.137 kg Height/Weight: Admission:Weight: 121.7 kg Today's: Weight: 122.1 kg BMI: Body mass index is 39.72 kg/m??. Current Medications: [Held by Provider] amLODIPine, 10 mg, DAILY aspirin, 81 mg, DAILY AT 0800 [Held by Provider] cetirizine, 10 mg, DAILY cholecalciferol, 1,000 Units, DAILY enoxaparin (LOVENOX) injection, 40 mg, Q12HR escitalopram, 20 mg, DAILY fenofibrate, 145 mg, WITH BREAKFAST [Held by Provider] hydroCHLOROthiazide, 25 mg, DAILY [Held by Provider] losartan, 100 mg, DAILY melatonin, 5 mg, QHS [Held by Provider] spironolactone, 25 mg, DAILY [Held by Provider] tiotropium, 1 Capsule, RTDAILY acetaminophen liquid, 650 mg, [id number] Lab Results: Recent Labs 12/28/22141612/29/22 0538 12/31/22 0417 WBC 9.39 5.15 5.16 HEMOGLOBIN 10.4* 9.2* 9.8* HEMATOCRIT 31.9* 29.3* 30.0* NEUTROPHIL # 7.65 3.95 4.08 NEUTROPHIL % 82 78 79 MCV 96.4 97.3 96.2 PLATELET 119* 80* 105* Recent Labs 12/28/22141612/29/22 0538 12/29/22 2209 12/30/22 1054 12/31/22 0417 SODIUM 137 136 134* 129* POTASSIUM 4.5 4.8* 4.6* CHLORIDE 111* 108* 104 102 GLUCOSE POCT 120* GLUCOSE 130* 131* 128* 125* BUN 57* 60* 60* 62* CREATININE 1.64* 1.79* 1.46* 1.77* Recent Labs 12/28/22141612/29/22 0538 12/31/22 0417 MAGNESIUM 2.2 2.1 2.1 Recent Labs 12/28/227 12/29/22 0538 PHOSPHORUS 2.9 3.7 Diagnostics (Reviewed): CTA CHEST W & W/O IV CONTRAST Result Date: 12/30/2022 IMPRESSION: 1. Mildly enlarged heart. Diffuse coronary artery atherosclerosis status post coronary artery bypass. Previous aortic valve repair. 2. There is aortic and iliac atherosclerosis without evidence of aneurysm or significant aortoiliac stenosis. There is mild to moderate stenosis at the origin of the SMA and suspected chronic right renal artery stenosis with some asymmetric right renal atrophy. 3. Minimal pleural effusions and dependent atelectasis bilaterally. Emphysema and predominantly right sided alveolar and groundglass pulmonary opacities suspected to reflect asymmetric edema inthis setting. 4. More focal groundglass nodule within [...] hip arthroplasty. Findings discussed with Dr. Engle. Reading Doctor: Rupali Li Electronic Signature by: Rupali Li XRAY CHEST 1 VIEW Result Date: 12/28/2022 IMPRESSION: Pulmonary vascular congestion and edema. Possible minimal bilateral pleural effusions. Reading Doctor: Fatou Gomez Electronic Signature by: Fatou Gomez CTA ABDOMEN PELVIS W & W/O IV CONTRAST Result Date: 12/30/2022 IMPRESSION: 1. Mildly enlarged heart. Diffuse coronary artery atherosclerosis status post coronary artery bypass. Previous aortic valve repair. 2. There is aortic and iliac atherosclerosis without evidence of aneurysm or significant aortoiliac stenosis. There is mild to moderate stenosis at the origin of the SMA and suspected chronic right renal artery stenosis with some asymmetric right renal atrophy. 3. Minimal pleural effusions and dependent atelectasis bilaterally. Emphysema and predominantly right sided alveolar and groundglass pulmonary opacities suspected to reflect asymmetric edema inthis setting. 4. More focal groundglass nodule within [...] hip arthroplasty. Findings discussed with Dr. Engle. Reading Doctor: Rupali Li Electronic Signature by: Rupali Li ECHO Result Date: 12/28/2022 Reason for Exam: Chest Pain Date of Service: 12/28/2022 Interpretation Summary There is no comparison study available. Patient Height 175.0 cm Patient Weight 127.0 kg Systolic Pressure 132 mmHg Diastolic Pressure 53 mmHg Study Location E[facility] BSA 2.4 m^2 Procedure: A complete two-dimensional transthoracic echocardiogram was performed (2D, M-mode, spectral and color flow Doppler). Study Quality: Fair. The study was technically difficult with many images being suboptimal in quality. A contrast injection of Definity was performed to improve assessment of LV function. Left Ventricle: The left ventricular mass index is increased. There is mild concentric left ventricular hypertrophy. LVEDV 299 ml with BSA 2.4 m2 The ejection fraction measured by 2D BP MOD is41%. The LV ejection fraction is severely decreased. Akinesis of the apex and periapical segments, anteroseptum with better motion of the LV base representing, until proven otherwise, LAD territory issues on a background of moderate aortic stenosis. There is no thrombus. LV diastolic function can not be accurately assessed. E/E' averaged>13 Left Atrium: The left atrial volume is mildly increased. Right Atrium: Right atrial size is normal. Right Ventricle: The right ventricular systolic function is normal. Aortic Valve: Focal calcification. The aortic valve is not well visualized. The peak aortic valve velocity 385 cm/s. Aortic mean pressure gradient= 32 mmHg. The aortic valve velocity ratio was calculated at 0.27. Mitral Valve: Both leaflets are pliable and mobile. There is trace mitral regurgitation. Tricuspid Valve: The tricuspid valve is not well visualized. There was insufficient TR detected to calculate RV systolic pr essure. Pulmonic Valve: The pulmonic valve is not well visualized. Trace pulmonic valvular regurgitation. Arteries: The aortic root is normal size. There is aortic root sclerosis/calcification. Aortic arch not seen well. Venous: Severely dilated inferior vena cava. Pericardium/Pleura: There is no pericardial effusion. MMode 2D Measurements & Calculations IVSd - 1.2 cm LVIDd - 5.9 cm LVIDs - 4.7 cm LVPWd - 1.1 cm IVS/LVPW - 1.1 FS - 20.9 % EDV(Teich) - 172.5 ml ESV(Teich) - 100.2 ml EF(Teich) - 41.9 % EF (est.) - 41.1 % EDV(cubed) - 204.3 ml ESV(cubed) - 101 ml EF(cubed) - 50.6 % LV mass(C)d - 277.7 grams LV mass(C)dI - 116.6 grams/m^2 SV(Teich) - 72.4 ml SI(Teich) - 30.4 ml/m^2 SV(cubed) - 103.3 ml SI(cubed) - 43.4 ml/m^2 Ao root diam - 3.4 cm Ao root area - 9.3 cm^2 LA dimension - 4.7 cm LA/Ao - 1.4 LVLd ap4 - 11.6 cm EDV(MOD-sp4) - 289 ml LVLs ap4 - 10.1 cm ESV(MOD-sp4) - 176 ml EF(MOD-sp4) - 39.1 % LVLd ap2 - 11.3 cm EDV(MOD- sp2) - 302 ml LVLs ap2 - 10.1 cm ESV(MOD-sp2) - 176 ml EF(MOD-sp2) - 41.7 % SV(MOD-sp4) - 113 ml SI(MOD-sp4) - 47.5 ml/m^2 SV(MOD-sp2) - 126 ml SI(MOD-sp2) - 52.9 ml/m^2 Doppler Measurements & Calculations MV E max bee - 93.3 cm/sec MV A max bee - 113.7 cm/sec MV E/A - 0.82 MV dec time - 0.17 sec Ao V2 max - 330.8 cm/sec Ao max PG - 46.5 mmHg Ao max PG (full) - 42.4 mmHg Ao V2 mean - 223.4 cm/sec Ao mean PG - 24.8 mmHg Ao mean PG (full) - 22.8 mmHg Ao V2 VTI - 64.6 cm LVOT max gradient - 4.2 mmHg LV V1 mean PG - 2 mmHg LVOT max bee - 101.7 cm/sec LV V1 mean - 68.2 cm/sec LV V1 VTI - 20.4 cm SV(Ao) - 600 ml SI(Ao) - 252 ml/m^2 PA V2 max - 121.7 cm/sec PA max PG - 5.9 mmHg Conclusion The study was technically difficult with many images beingsuboptimal in quality. The left ventricular mass index is increased. E/E' averaged >13 The ejection fraction measured by 2D BP MOD is41%. Akinesis of the apex and periapical segments, anteroseptumwith better motion of the LV base representing, until proven otherwise, LAD territory issues on a background of moderate aortic stenosis. InterpretingPhysician:Interpreting Physician: Papi Delcid, electronically signed on 2022-12-28 16:16:52.52 EKG: None new Yvrose Thomas MD PGY1 Resident - Internal Medicine [facility], [facility] Associated attestation - Jeyson Richard MD - 12/31/2022 3:39 PM EDT ATTENDING ENTERPRISE APPLICATION ARCHITECT ATTESTATION: I have seen and examined the patient with Dr. Thomas on December 31. I have reviewed the chartand agree with the findings and recommendations as indicated above. Electronically Signed By: Minor Richard MD * Blayne Tim RN - 12/30/2022 8:03 PM EDT Problem: Adult Inpatient Plan of Care Goal: Plan of Care Review Outcome: Ongoing, Progressing Goal: Patient-Specific Goal (Individualized) Outcome: Ongoing, Progressing Goal: Absence of Hospital-Acquired Illness or Injury Outcome: Ongoing, Progressing Goal: Optimal Comfort and Wellbeing Outcome: Ongoing, Progressing Goal: Readiness for Transition of Care Outcome: Ongoing, Progressing Problem: Adjustment to Illness (Acute Coronary Syndrome) Goal: Optimal Adaptation to Illness Outcome: Ongoing, Progressing Problem: Dysrhythmia (Acute Coronary Syndrome) Goal: Normalized Cardiac Rhythm Outcome: Ongoing, Progressing Problem: Cardiac-Related Pain (Acute Coronary Syndrome) Goal: Absence of Cardiac-Related Pain Outcome: Ongoing, Progressing Problem: Hemodynamic Instability (Acute Coronary Syndrome) Goal: Effective Cardiac Pump Function Outcome: Ongoing, Progressing Problem: Tissue Perfusion (Acute Coronary Syndrome) Goal: Adequate Tissue Perfusion Outcome: Ongoing, Progressing Problem: Fall Injury Risk Goal: Absence of Fall and Fall-Related Injury Outcome: Ongoing, Progressing Problem: Pain Acute Goal: Acceptable Pain Control and Functional Ability Outcome: Ongoing, Progressing Patient monitored for pain signs and symptoms prn, repositioned prn, distraction used, medicated prn, instructed to call when pain starts so that pain does not get out of control. Proper skin care, repositioned every 2 hours or less, skin monitored for irritation/breakdown, tubes/lines kept away from skin, encouraged proper nutrition and hydration. Proper skin care, proper wound care, proper hand hygiene, monitored wound for signs and symptoms of infection, Incentive Spirometry encouraged. Siderails up, bed locked and in lowest position, call vasquez within reach and patient instructed to call when needs help, night light on, non skid footwear worn when OOB. * Blayne Tim RN - 12/30/2022 8:01 PM EDT Shift change report given by JULIA Perla. Charts and labs reviewed. Bedside shift report complete, drips reviewed. Pt alert/oriented. Telemetry intact, SR on monitor. Safety check complete, bed low, wheels locked, call vasquez within reach. Pt re-oriented to call vasquez system. Instructed to use with needs/concerns. Education provided on falls risk and prevention. Will continue to monitor. * Minda Osullivan RN - 12/30/2022 6:28 PM EDT Shift summary: Pt remained stable and free from injury. Pt denies pain/needs at this time. TAVR/structural surgery Sunday?No acute changes this shift. Safety precautions maintained during shift. Callbell in reach, bed low, wheels locked. Ambu/Code equipment at bedside. Will report poc to oncoming RN. * Miller Cooper MD - 12/30/2022 2:54 PM EDT Images from the original note were not included. [facility] - Cardiology Teaching Service Transfer Accept Note Service Pager (call #1, internal sales engineer) #[phone] Service Pager (call #2, senior) #[phone] PATIENT IDENTIFICATION: Patient Name: Raghu Rosenthal Age: 77yrs Sex: Male : 1945 MEG: [id number] Admit Date: 12/28/2022 1:45 PM Today's Date: 12/30/2022 Length of Stay: 2 days Admit Diagnosis: NSTEMI (non-ST elevated myocardial infarction) ([facility]) [I21.4] Primary Diagnosis: Acute coronary syndrome ([facility]) [facility] PCP: Williams Yip MD Primary Insurance: @[employer]@ Secondary Insurance: @[employer]@ [facility]: Raghu Rosenthal is a 77yrs old Male with PMH of CAD s/p CABG x2 in [place] 10 years ago, HTN, HLD, porcine AVR who initially presented to [place] ED with complaints of SOB and midchest pressure. Patient lives in [place] with his , and is visiting [facility] for the next 3 months. He recently had a ziopatch placed by the [facility] on 12/27. Following this procedure he had worsening SOB associated with fatigue, malaise and generalized weakness. EMS was called and he was brought to [place] ED. On arrival he was noted to be in mild respiratory distress and required bipap. WBC of 19. EKG without NUNO, troponin 1.197. CXR consistent with mild interstitial edema, and a small left pleural effusion. He was given nitro sublingual and morphine, and started on BID lovenox. He was admitted to the ICU at [place]. He was started on empiric vanc, cefepime for possible infection. He was hypotensive requiring levophed with a differential of cardiogenic vs septic shock. He had a repeat EKG done on 12/28 with a new LBBB. His troponin trended as high as 39. Given concerns for acute coronary syndrome, he was transferred to [facility] for further management. On arrival to CICU, patient is awake and alert. He is on low dose levophed. He is warm to the touchand appears well perfused. POCUS with EF visually estimated at 45%. Breathing comfortably on room air. 12/28 Cardiac cath done 12/29 patient with some increased work of breathing this morning, tells me he just doesn't feel right. Will give some gentle diuresis. 12/30 patient stable and transferred to CIU ASSESSMENT & PLAN: Raghu Rosenthal is a 77yrs old Male with PMH of CAD s/p CABG x2 in [place] 10 years ago, HTN, HLD, porcine AVR who initially presented to [place] ED with complaints of SOB and midchest pressure. Transferred to [facility] in cardiogenic shock and admitted to CICU. Cardiogenic Shock - resolved NSTEMI HFrEF Trop peakc 69 and downtrended H/o CABGx2 10 years ago Cath 12/28/22 1. Severe three-vessel disease with patent AVERY to LAD, intermediate stenosis in mid RCA, 60% distal left main stenosis. Culprit for his VA appears to be an occluded SVG to ramus graft. There is flowin the ramus with proximal 70% stenosis. 2. He is also noted to have severely degenerated bioprosthetic aortic valve, invasive gradients reviewed severely stenotic with mean gradient over 40 mmHg. 3. Decompensated heart failure with preserved cardiac output. We had discontinued his Levophed on arrival to the [facility]. LVEDP 30mmHg. Echo 12/28/22 with EF 41% - ASA - Hold GDMT given severe and HF Severe Degenerated Bioprosthetic Valve CT A/P 1. Mildly enlarged heart. Diffuse coronary artery [...] Diverticulosis. Partial colectomy. 8. Bilateral hip arthroplasty. Careful diuresis - Hold BB - Possible TAVR/structural surgery Sunday - NPO at midnight Sunday Acute Hypoxic Respiratory Failure Diurese carefully Wean O2 when possible CXR 12/28/22 with pulmonary edema FILIBERTO on CKD II Avoid nephrotoxins HTN Antihypertensives held given resent shock HLD Held statin due to statin allergy FEN: Fluids: none Electrolytes: Will replace to keep K >4, Phos >3, Mg >2 Nutrition: cardiac diet DVT Prophylaxis: heparin/enoxaparin/SCD Dispo: CIU Code Status: Full Code The assessment and plan above was discussed with the attending physician, Jeyson Richard MD Interval Events (Previous 24-hrs): Per RN, no acute events overnight. SUBJECTIVE: Patient seen and examined at the bedside. Review of Systems: Review of Systems Constitutional: Negative for chills and fever. HENT: Negative for sore throat. Respiratory: Positive for cough and shortness of breath. Negative for wheezing and stridor. Cardiovascular: Positive for leg swelling. Negative for chest pain and palpitations. Gastrointestinal: Negative for abdominal pain, diarrhea, nausea and vomiting. Genitourinary: Negative for dysuria. Musculoskeletal: Negative for myalgias. Skin: Negative for rash. Neurological: Positive for weakness. Negative for headaches. Psychiatric/Behavioral: Negative for agitation. OBJECTIVE: Vitals: Blood pressure 97/71, pulse 90, temperature 36.6 ??C (97.9 ??F), resp. rate (!) 22, height 1.753 m,weight 122.2 kg, SpO2 97 %. Max Blood Pressure: Systolic (24hrs), Av , Min:97 , Max:130 Diastolic (24hrs), Av, Min:53, Max:87 Physical Exam: General: NAD lying comfortably in bed, not in distress Eyes: conjunctivae sclerae clear, PERRL, EOMI HENT: Atraumatic, normocephalic, buccal mucosa, palate and tongue WNL Neck: supple, Lungs: Equal air entry bilaterally, clear to auscultation, without rales or wheezes Heart: RRR, normal S1, S2, no murmur, gallops, or rubs. 2+ pitting edema to mid stevens. Abdomen: soft, nontender, nondistended, + bowel sounds, no organomegally, or masses Neuro: Alert, oriented X3, no focal neurological signs, moving all 4 extremities, Extremities: no edema in lower extremities Skin: warm, no pallor, no cyanosis, no rashes, no ecchymoses Psych: normal affect Patient Data: I/O's: Intake/Output Summary (Last 24 hours) at 12/30/2022 1456 Last data filed at 12/30/2022 1200 Gross per 24 hour Intake 460 ml Output 710 ml Net -250 ml Weight change: 0.5 kg Height/Weight: Admission:Weight: 121.7 kg Today's: Weight: 122.2 kg BMI: Body mass index is 39.77 kg/m??. Current Medications: aspirin, 81 mg, DAILY AT 0800 enoxaparin (LOVENOX) injection, 40 mg, Q12HR escitalopram, 20 mg, DAILY acetaminophen liquid, 650 mg, [id number] fentaNYL, 25 mcg, [id number] iodixanoL, 80 mL, ONCE Lab Results: Recent Labs 12/28/22141612/29/22 0538 WBC 9.39 5.15 HEMOGLOBIN 10.4* 9.2* HEMATOCRIT 31.9* 29.3* NEUTROPHIL # 7.65 3.95 NEUTROPHIL % 82 78 MCV 96.4 97.3 PLATELET 119* 80* Recent Labs 12/28/22141612/29/22 0538 12/29/22 2209 12/30/22 1054 SODIUM 137 136 134* POTASSIUM 4.5 4.8* 4.6* CHLORIDE 111* 108* 104 GLUCOSE POCT 120* GLUCOSE 130* 131* 128* BUN 57* 60* 60* CREATININE 1.64* 1.79* 1.46* Recent Labs 12/28/22141612/29/22 0538 MAGNESIUM 2.2 2.1 Recent Labs 12/28/22 14112/29/22 0538 PHOSPHORUS 2.9 3.7 Diagnostics (Reviewed): CTA CHEST W & W/O IV CONTRAST Result Date: 12/30/2022 IMPRESSION: 1. Mildly enlarged heart. Diffuse coronary artery atherosclerosis status post coronary artery bypass. Previous aortic valve repair. 2. There is aortic and iliac atherosclerosis without evidence of aneurysm or significant aortoiliac stenosis. There is mild to moderate stenosis at the origin of the SMA and suspected chronic right renal artery stenosis with some asymmetric right renal atrophy. 3. Minimal pleural effusions and dependent atelectasis bilaterally. Emphysema and predominantly right sided alveolar and groundglass pulmonary opacities suspected to reflect asymmetric edema inthis setting. 4. More focal groundglass nodule within [...] hip arthroplasty. Findings discussed with Dr. Engle. Reading Doctor: Rupali Li Electronic Signature by: Rupali Li XRAY CHEST 1 VIEW Result Date: 12/28/2022 IMPRESSION: Pulmonary vascular congestion and edema. Possible minimal bilateral pleural effusions. Reading Doctor: Fatou Gomez Electronic Signature by: Fatou Gomez CTA ABDOMEN PELVIS W & W/O IV CONTRAST Result Date: 12/30/2022 IMPRESSION: 1. Mildly enlarged heart. Diffuse coronary artery atherosclerosis status post coronary artery bypass. Previous aortic valve repair. 2. There is aortic and iliac atherosclerosis without evidence of aneurysm or significant aortoiliac stenosis. There is mild to moderate stenosis at the origin of the SMA and suspected chronic right renal artery stenosis with some asymmetric right renal atrophy. 3. Minimal pleural effusions and dependent atelectasis bilaterally. Emphysema and predominantly right sided alveolar and groundglass pulmonary opacities suspected to reflect asymmetric edema inthis setting. 4. More focal groundglass nodule within [...] hip arthroplasty. Findings discussed with Dr. Engle. Reading Doctor: Rupali Li Electronic Signature by: Rupali Li ECHO Result Date: 12/28/2022 Reason for Exam: Chest Pain Date of Service: 12/28/2022 Interpretation Summary There is no comparison study available. Patient Height 175.0 cm Patient Weight 127.0 kg Systolic Pressure 132 mmHg Diastolic Pressure 53 mmHg Study Location ECH BSA 2.4 m^2 Procedure: A complete two-dimensional transthoracic echocardiogram was performed (2D, M-mode, spectral and color flow Doppler). Study Quality: Fair. The study was technically difficult with many images being suboptimal in quality. A contrast injection of Definity was performed to improve assessment of LV function. Left Ventricle: The left ventricular mass index is increased. There is mild concentric left ventricular hypertrophy. LVEDV 299 ml with BSA 2.4 m2 The ejection fraction measured by 2D BP MOD is41%. The LV ejection fraction is severely decreased. Akinesis of the apex and periapical segments, anteroseptum with better motion of the LV base representing, until proven otherwise, LAD territory issues on a background of moderate aortic stenosis. There is no thrombus. LV diastolic function can not be accurately assessed. E/E' averaged>13 Left Atrium: The left atrial volume is mildly increased. Right Atrium: Right atrial size is normal. Right Ventricle: The right ventricular systolic function is normal. Aortic Valve: Focal calcification. The aortic valve is not well visualized. The peak aortic valve velocity 385 cm/s. Aortic mean pressure gradient= 32 mmHg. The aortic valve velocity ratio was calculated at 0.27. Mitral Valve: Both leaflets are pliable and mobile. There is trace mitral regurgitation. Tricuspid Valve: The tricuspid valve is not well visualized. There was insufficient TR detected to calculate RV systolic pr essure. Pulmonic Valve: The pulmonic valve is not well visualized. Trace pulmonic valvular regurgitation. Arteries: The aortic root is normal size. There is aortic root sclerosis/calcification. Aortic arch not seen well. Venous: Severely dilated inferior vena cava. Pericardium/Pleura: There is no pericardial effusion. MMode 2D Measurements & Calculations IVSd - 1.2 cm LVIDd - 5.9 cm LVIDs - 4.7 cm LVPWd - 1.1 cm IVS/LVPW - 1.1 FS - 20.9 % EDV(Teich) - 172.5 ml ESV(Teich) - 100.2 ml EF(Teich) - 41.9 % EF (est.) - 41.1 % EDV(cubed) - 204.3 ml ESV(cubed) - 101 ml EF(cubed) - 50.6 % LV mass(C)d - 277.7 grams LV mass(C)dI - 116.6 grams/m^2 SV(Teich) - 72.4 ml SI(Teich) - 30.4 ml/m^2 SV(cubed) - 103.3 ml SI(cubed) - 43.4 ml/m^2 Ao root diam - 3.4 cm Ao root area - 9.3 cm^2 LA dimension - 4.7 cm LA/Ao - 1.4 LVLd ap4 - 11.6 cm EDV(MOD-sp4) - 289 ml LVLs ap4 - 10.1 cm ESV(MOD-sp4) - 176 ml EF(MOD-sp4) - 39.1 % LVLd ap2 - 11.3 cm EDV(MOD-sp2) - 302 ml LVLs ap2 - 10.1 cm ESV(MOD-sp2) - 176 ml EF(MOD-sp2) - 41.7 % SV(MOD-sp4) - 113 ml SI(MOD-sp4) - 47.5 ml/m^2 SV(MOD-sp2) - 126 ml SI(MOD-sp2) - 52.9 ml/m^2 Doppler Measurements & Calculations MV E max bee - 93.3 cm/sec MV A max bee - 113.7 cm/sec MV E/A - 0.82 MV dec time - 0.17 sec Ao V2 max - 330.8 cm/sec Ao max PG - 46.5 mmHg Ao max PG (full) - 42.4 mmHg Ao V2 mean - 223.4 cm/sec Ao mean PG - 24.8 mmHg Ao mean PG (full) - 22.8 mmHg Ao V2 VTI - 64.6 cm LVOT max gradient - 4.2 mmHg LV V1 mean PG - 2 mmHg LVOT max bee - 101.7 cm/sec LV V1 mean - 68.2 cm/sec LV V1 VTI - 20.4 cm SV(Ao) - 600 ml SI(Ao) - 252 ml/m^2 PA V2 max - 121.7 cm/sec PA max PG - 5.9 mmHg Conclusion The study was technically difficult with many images beingsuboptimal in quality. The left ventricular mass index is increased. E/E' averaged >13 The ejection fraction measured by 2D BP MOD is41%. Akinesis of the apex and periapical segments, anteroseptumwith better motion of the LV base representing, until proven otherwise, LAD territory issues on a background of moderate aortic stenosis. InterpretingPhysician:Interpreting Physician: Papi Delcid, electronically signed on 2022-12-28 16:16:52.52 EKG: None new Electronically signed by: Miller Cooper MD PGY-1, Internal Medicine Pager #[phone] [employer] Preferred Associated attestation - Jeyson Richard MD - 12/30/2022 4:01 PM EDT ATTENDING ENTERPRISE APPLICATION ARCHITECT ATTESTATION: I have seen and examined the patient with Dr. Cooper on December 30. I have reviewed the chart and agree with the findings and recommendations as indicated above. Electronically Signed By: Minor Richard MD * Minda Osullivan RN - 12/30/2022 12:33 PM EDT [facility], denies pain. Tele intact. 4L NC. Call vasquez in reach, bed low, wheelslocked. Ambu/Code equipment at bedside. Will continue to monitor. * Bozena Rosen ACNP - 12/30/2022 12:26 PM EDT U jig worker notified of patient transfer to [facility]. RUMA Tracy * Yobani Engle MD - 12/30/2022 11:26 AM EDT Brief oracle technical developer note: 77 year old male with a PMH of CAD s/p 2v CABG (AVERY-LAD, SVG-ramus), 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 Underwent LHC/CA on 12/28/2022: -Patent to AVERY to LAD and occluded SVG to RI. Distal LM 80% stenosis -Severe bioprosthetic by echo and echo. Echo with AV bee 4 m/s, MG 42 mmHg. Cath with CHELITA 0.75 cm2 and MG 47 mmHg Assessment: -Severe bioprosthetic -NSTEMI: Hx of CABG (2 vessel, unknown grafts). LELA score of [address] depression inlateral precordial leads and ST elevation in aVR. Trop 68. LDL 60. -Shock, could be cardiogenic: resolved (pressor weaned on 12/28 evening) -Acute pulmonary edema, likely 2/2 diastolic HF from ACS Vs. Myocardial stunning -Cr elevation, possible FILIBERTO, no baseline Cr: Cr uptrending today, possible secondary to contrast load during LHC/CA -Hx of HTN, HLD, obesity class III (BMI 41) Recommendations: -continue ASA, statin -defer BB at this time in the setting of severe -monitor volume status closely, avoid excessive fluid shifts in the setting of severe -obtained gated CTA chest abdomen pelvis TAVR protocol today. This will help us decide about valve in valve TAVR vs redo surgery - will discuss with TAVR/structural team on Sunday Patient is stable from a cardiac standpoint for transfer out of CICU. [facility]ob[facility] Engle [facility] on-call pager #[phone] * Elvia Addison RT(R)(CT) - 12/30/2022 9:18 AM EDT Nurse bringing patient to CT department. Holding room at this time. Waiting on nurse arrival to CT * Bozena Rosen ACNP - 12/30/2022 6:53 AM EDT Images from the original note were not included. Cardiac Critical Care Progress Note RUMA Tracy Critical care time provided exclusive of separately billable procedures: 0 minutes. Date: 12/30/2022, 6:53 AM LOC:CV443/[id number] Raghu Rosenthal 1945 Hosp day:1 days Referring MD: Williams Yip MD ICU Day: # 1 Code Status: Full Code Chief Complaint: ACS Narrative/Overnight/ROS: (History and SOAP notes have been reviewed in the EMR) 12/30/2022 no acute events overnight. Stable for transfer Hospital Course: Raghu Rosenthal is a 77yrs old Male with PMH of CAD s/p CABG x2 in [place] 10 years ago, HTN, HLD, porcine AVR who initially presented to [place] ED with complaints of SOB and midchest pressure. Patient lives in [place] with his , and is visiting [facility] for the next 3 months. He recently had a ziopatch placed by the [facility] on 12/27. Following this procedure he had worsening SOB associated with fatigue, malaise and generalized weakness. EMS was called and he was brought to [place] ED. On arrival he was noted to be in mild respiratory distress and required bipap. WBC of 19. EKG without NUNO, troponin 1.197. CXR consistent with mild interstitial edema, and a small left pleural effusion. He was given nitro sublingual and morphine, and started on BID lovenox. He was admitted to the ICU at [place]. He was started on empiric vanc, cefepime for possible infection. He was hypotensive requiring levophed with a differential of cardiogenic vs septic shock. He had a repeat EKG done on 12/28 with a new LBBB. His troponin trended as high as 39. Given concerns for acute coronary syndrome, he was transferred to [facility] for [facility] management[facility] is awake and alert. He is on low dose levophed. He is warm to the touchand appears well perfused. POCUS with EF visually estimated at 45%. Breathing comfortably on room air. / patient with some increased work of breathing this morning, tells me he just doesn't feel right. Will give some gentle diuresis. Active Hospital Problems: Active Hospital Problems Diagnosis *Acute coronary syndrome ([facility]) NSTEMI (non-ST elevated myocardial infarction) ([facility] Shock ([facility]) Hypertension Hyperlipidemia Coronary artery disease Plan: Patient Active Hospital Problem List: Shock-resolved Assessment: Hypotensive at OSH requiring pressors. Distributive vs cardiogenic. WBC 19. ECHO with EF 41%, severe Plan: remove from problem lis Acute Coronary Syndrome, Coronary Artery Disease Assessment: EKG with new LBBB. Troponin peak 69. History of CABGx2 [address] [facility] with occluded SVG - LM disease, no intervention Plan: Aspirin Allergy to statins so will hold for now Holding BB, SHERMAN until hemodynamics allow [facility] following. May need revasc in the future Severe Aortic Stenosis, History of Bioprosthetic Valve HFmrEF Assessment: history of bioprosthetic AVR, now with severe as seen on ECHO and cath. EF 40% Plan: Cautious with large volume removal. 40mg lasix this morning Holding afterload reduction for now CT chest pending Structural heart team following Acute hypoxic respiratory failure Assessment: improving. Resp failure 2/2 pulmonary edema Plan: wean supplemental o2 as able Diuresis today FILIBERTO on CKD stage 2 Assessment: baseline appears to be around 1.5 Plan: Strict I/O Monitor on BMP Avoid nephrotoxic drugs Thrombocytopenia Assessment: may be secondary to Plan: Monitor for now Hypertension Assessment: Chronic. Losartan, amlodipine, aldactone, HCTZ at home. Plan: Holding antihypertensives Hyperlipidemia Assessment: Chronic Plan: Statin held 2/2 allergy History Subdural Hematoma History Diverticulitis CICU Daily Rounding Checklist 1. Lines/Tubes/Drains -Bruno: no -CVC: no -Art line: no -Other: PIVs 2. SBT/SAT: N/A 3. Nutrition Status: Nutrition Therapy 4. Glycemic Control: -131 mg/dL (12/29 537) -12/28/2022: Hemoglobin A1C 5.0 % -N/A 5. Mobility Status - GEMS: Mobility Level 4- Independent activities - PT/OT:no 6. DVT Prophylaxis: Lovenox 7. PUD Prophylaxis: N/A 8. CAM ICU Score: Delirium Assessment CAM-ICU Acute Change or Fluctuating Course of Mental Status: No CAM-ICU Score: Negative -Interventions N/A 9. Current antibiotics: None Most Recent Restraint Order (From admission, onward) None Medications: SCHEDULED MEDICATIONS aspirin, 81 mg, DAILY AT 0800 enoxaparin (LOVENOX) injection, 40 mg, Q12HR escitalopram, 20 mg, DAILY PRN Inpatient Medications: acetaminophen liquid, 650 mg, [id number] fentaNYL, 25 mcg, [id number] Echo : ECHO Result Date: 12/28/2022 Conclusion The study was technically difficult with many images being suboptimal in quality. The left ventricular mass index is increased. E/E' averaged >13 The ejection fraction measured by 2D BPMOD is41%. Akinesis of the apex and periapical segments, anteroseptum with better motion of the LV base representing, until proven otherwise, LAD territory issues on a background of moderate aortic stenosis. InterpretingPhysician:Interpreting Physician: Papi Delcid, electronically signed on 2022-12-28 16:16:52.52 Physical Examination: VItals: BP 109/58 Pulse 97 Temp 36.7 ??C (98 ??F) Resp (!) 23 Ht 1.753 m Wt 122.2 kg SpO2 97% BMI 39.77 kg/m?? Temp (24hrs), Av.7 ??C (98.1 ??F), Min:36.6 ??C (97.8 ??F), Max:36.8 ??C (98.3??F) Ventilation: Resp: (!) 23 SpO2: 97 % O2 Mode: Nasal Cannula Or Prongs, With Humidification O2 Frequency: As Needed Telemetry: NSR Intake/Output Summary (Last 24 hours) at 12/30/2022 0653 Last data filed at 12/30/2022 0500 Gross per 24 hour Intake 635 ml Output 1350 ml Net -715 ml Body mass index is 39.77 kg/m??. Constitutional: alert, oriented times four and well nourished, well developed, and in no distress HENT: Head exam: normocephalic, atraumatic no JVD , no carotid bruits, trachea midline and normal to palpitation EYES: Both eyes: conjunctivae and sclerae clear, pupils equal, round, reactive to light and accommodation, 3mm bilaterally, EOM's intact CV: Cardiac Exam: S1 and S2 normal, +mechanical valve click ; Extremity exam: 2+ radial and dorsalis pedis peripheral pulses. 1+ lower extremity edema noted. Pulm: Lung sounds clear to auscultation, respiratory rate and rhythm regular GI: Bowel sounds normal. Abdomen soft, non-tender. No masses, No organomegaly Musculoskeletal: No clubbing, cyanosis, inflammatory changes. No joint deformity, swelling or tenderness. LYMPH: Neck, axillary and groin lymph nodes not palpable Skin: Skin color, texture, turgor normal. No rashes or lesions. Neurological: negative findings: speech normal, mental status intact, cranial nerves 2-12 intact Wound/Stage: No wound Psychiatric: Alert, oriented to person, place, time, and situation LAB: REVIEWED IN EMR, PERTINENT VALUES, AND DECISION MAKING, ARE INCORPORATED IN ASSESSMENT AND PLAN STUDIES: IMAGES HAVE BEEN PERSONALLY INTERPRETED IN PACS, RADIOLOGY REPORTS HAVE BEEN REVIEWED DECISION MAKING INCORPORATED INTO THE ASSESSMENT AND PLAN Patient was seen and evaluated with Ko Bautista DO. Plan of care was reviewed in detail. Associated attestation - Ko Feliciano DO - 12/30/2022 9:42 AM EDT ATTENDING NOTE: Date: 12/30/2022, 9:42 AM Patient examined with the CICU team at the bedside and pertinent radiographs and laboratory resultsevaluated with the CICU team. I agree with the documentation and assessment per RUMA Rosen notewith additions and amendments per my separate note. Ko Feliciano DO EM/IM/CC * Ko Feliciano DO - 12/30/2022 6:45 AM EDT CICU Attending Note- Date of Service 12/30/22 Pt is a 77 y/o male with PMH of CABG x2 w/ porcine AVR (10 years ago in [place]), HTN, HLD, obesitywho is admitted to CICU from [place] w/ NSTEMI and shock. A/P: NSTEMI Shock, distributive vs cardiogenic. Resolved HFrEF HLD Severe Acute hypoxic resp failure -ECHO w/ EF 40% -cath severe 3 vessel disease. Patent AVERY to LAD, intermediate mid RCA stenosis, 60% LM, completely occluded SVG to ramus as VA culprit -trops peaked 68 -cont asa/statin -CXR, BCx, UA. Abx stopped yesterday. Do not suspect PNA -cards/TAVR following. Gated CT today -on NC, satting well in chair -net neg 860 last 24 hours. Diurese for goal 1-1.5L neg next 24 hrs DVT ppx:scds, lovenox PUD ppx:n/a Diet: cardiac Dispo: transfer out of unit today Ko Feliciano DO EM/IM/CC * Alethea Castillo RN - 12/30/2022 6:45 AM EDT Shift Summary Cardiac: SR-ST with HR 70s-110s, BBB. Resp: Dyspnea with minimal exertion. Diminished breath sounds. Cough with small amounts thick brown mucusplugs. Neuro: A&O x 4, equal handgrips,jose, ambulates with slow but steady gait Renal: Diminished u/o. GI: Loose BMs Skin: Non-pitting edema, multiple scattered ecchymosis, Pain: Denies pain or discomfort. POC: CTA chest and abdomen scheduled for 08 * Alethea Castillo RN - 12/30/2022 12:29 AM EDT Problem: Adult Inpatient Plan of Care Goal: Plan of Care Review Outcome: Ongoing, Progressing Goal: Patient-Specific Goal (Individualized) Outcome: Ongoing, Progressing Goal: Absence of Hospital-Acquired Illness or Injury Outcome: Ongoing, Progressing Goal: Optimal Comfort and Wellbeing Outcome: Ongoing, Progressing Goal: Readiness for Transition of Care Outcome: Ongoing, Progressing Problem: Adjustment to Illness (Acute Coronary Syndrome) Goal: Optimal Adaptation to Illness Outcome: Ongoing, Progressing Problem: Dysrhythmia (Acute Coronary Syndrome) Goal: Normalized Cardiac Rhythm Outcome: Ongoing, Progressing Problem: Cardiac-Related Pain (Acute Coronary Syndrome) Goal: Absence of Cardiac-Related Pain Outcome: Ongoing, Progressing Problem: Hemodynamic Instability (Acute Coronary Syndrome) Goal: Effective Cardiac Pump Function Outcome: Ongoing, Progressing Problem: Tissue Perfusion (Acute Coronary Syndrome) Goal: Adequate Tissue Perfusion Outcome: Ongoing, Progressing Problem: Fall Injury Risk Goal: Absence of Fall and Fall-Related Injury Outcome: Ongoing, Progressing Problem: Pain Acute Goal: Acceptable Pain Control and Functional Ability Outcome: Ongoing, Progressing * Yobani Engle MD - 12/29/2022 9:50 AM EDT Brief oracle technical developer note: 77 year old male with a PMH of CAD s/p 2v CABG (AVERY-LAD, SVG-ramus), 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 Underwent LHC/CA on 12/28/2022: -Patent to AVERY to LAD and occluded SVG to RI. Distal LM 80% stenosis -Severe bioprosthetic by echo and echo. Echo with AV bee 4 m/s, MG 42 mmHg. Cath with CHELITA 0.75 cm2 and MG 47 mmHg Assessment: -Severe bioprosthetic -NSTEMI: Hx of CABG (2 vessel, unknown grafts). LELA score of [address] depression inlateral precordial leads and ST elevation in aVR. Trop 68. LDL 60. -Shock, could be cardiogenic: resolved (pressor weaned on 12/28 evening) -Acute pulmonary edema, likely 2/2 diastolic HF from ACS Vs. Myocardial stunning -Cr elevation, possible FILIBERTO, no baseline Cr: Cr uptrending today, possible secondary to contrast load during LHC/CA -Hx of HTN, HLD, obesity class III (BMI 41) Recommendations: -continue ASA, statin -defer BB at this time in the setting of severe -monitor volume status closely, avoid excessive fluid shifts in the setting of severe -plan to obtain gated CTA chest abdomen pelvis TAVR protocol (possibly on Sunday or Sunday) if his creatinine stays stable. This will help us decide about valve in valve TAVR vs redo surgery Yobani Engle MD [facility] Cardiology on-call pager #[phone] * Michael Luna RN - 12/29/2022 7:26 AM EDT Reviewed with patient and family * Natividad Hatch ACNP - 12/29/2022 6:54 AM EDT Images from the original note were not included. Cardiac Critical Care Progress Note RUMA Hsu Critical care time provided exclusive of separately billable procedures: 15 minutes. Date: 12/29/2022, 6:54 AM LOC:CV443/CV443 Raghu Rosenthal 1945 Hosp day:0 days Referring MD: Williams Yip MD ICU Day: # 0 Code Status: Full Code Chief Complaint: ACS Narrative/Overnight/ROS: (History and SOAP notes have been reviewed in the EMR) 12/29/2022 patient with some increased work of breathing this morning, tells me he just doesn't feel right. Will give some gentle diuresis. Hospital Course: Raghu Rosenthal is a 77yrs old Male with PMH of CAD s/p CABG x2 in [place] 10 years ago, HTN, HLD, porcine AVR who initially presented to [place] ED with complaints of SOB and midchest pressure. Patient lives in [place] with his , and is visiting [facility] for the next 3 months. He recently had a ziopatch placed by the [facility] on 12/27. Following this procedure he had worsening SOB associated with fatigue, malaise and generalized weakness. EMS was called and he was brought to [place] ED. On arrival he was noted to be in mild respiratory distress and required bipap. WBC of 19. EKG without NUNO, troponin 1.197. CXR consistent with mild interstitial edema, and a small left pleural effusion. He was given nitro sublingual and morphine, and started on BID lovenox. He was admitted to the ICU at [place]. He was started on empiric vanc, cefepime for possible infection. He was hypotensive requiring levophed with a differential of cardiogenic vs septic shock. He had a repeat EKG done on 12/28 with a new LBBB. His troponin trended as high as 39. Given concerns for acute coronary syndrome, he was transferred to [facility] for further management. On arrival to CICU, patient is awake and alert. He is on low dose levophed. He is warm to the touchand appears well perfused. POCUS with EF visually estimated at 45%. Breathing comfortably on room air. Active Hospital Problems: Active Hospital Problems Diagnosis *Acute coronary syndrome ([facility] NSTEMI (non-ST elevated myocardial infarction) ([facility]) Shock ([facility]) Hypertension Hyperlipidemia Coronary artery disease Plan: Patient Active Hospital Problem List: Shock Assessment: Hypotensive at OSH requiring pressors. Distributive vs cardiogenic. WBC 19. ECHO with EF 41%, severe Plan: Levophed weaned off Empiric rocephin, azithromycin Trend lactic Acute Coronary Syndrome, Coronary Artery Disease Assessment: EKG with new LBBB. Troponin uptrended to 39. Presented with Chest pain. History of CABGx2 [address] [facility] with occluded SVG - LM disease, no intervention Plan: Aspirin Allergy to statins so will hold for now Holding BB, SHERMAN until hemodynamics allow [facility] following. May need revasc in the future Severe Aortic Stenosis, History of Bioprosthetic Valve Assessment: history of bioprosthetic AVR, now with severe as seen on ECHO and cath Plan: Cautious with large volume removal. 20mg lasix this morning Holding afterload reduction for now CT chest ordered for workup Structural heart team following FILIBERTO on CKD stage 2 Assessment: baseline appears to be around 1.5 Plan: Strict I/O Monitor on BMP Avoid nephrotoxic drugs Thrombocytopenia Assessment: may be secondary to Plan: Monitor for now Hypertension Assessment: Chronic. Losartan, amlodipine, aldactone, HCTZ at home. Plan: Holding antihypertensives until hemodynamics allow Hyperlipidemia Assessment: Chronic Plan: Statin History Subdural Hematoma History Diverticulitis CICU Daily Rounding Checklist 1. Lines/Tubes/Drains -Bruno: no -CVC: no -Art line: no -Other: PIVs 2. SBT/SAT: N/A 3. Nutrition Status: Nutrition Therapy 4. Glycemic Control: -131 mg/dL (12/29 537) -12/28/2022: Hemoglobin A1C 5.0 % -N/A 5. Mobility Status - GEMS: Mobility Level 1- Primarily in bed activities - PT/OT:no 6. DVT Prophylaxis: Lovenox 7. PUD Prophylaxis: N/A 8. CAM ICU Score: Delirium Assessment CAM-ICU Acute Change or Fluctuating Course of Mental Status: No CAM-ICU Score: Negative -Interventions N/A 9. Current antibiotics: None Most Recent Restraint Order (From admission, onward) None Medications: SCHEDULED MEDICATIONS aspirin, 81 mg, DAILY AT 0800 azithromycin, 500 mg, Q24HR cefTRIAXone, 2 g, Q24HR enoxaparin (LOVENOX) injection, 40 mg, DAILY AT 1600 escitalopram, 20 mg, DAILY PRN Inpatient Medications: acetaminophen liquid, 650 mg, [id number]-[id number] morphine, 2 mg, H1GT-BIS Echo : ECHO Result Date: 12/28/2022 Reason for Exam: Chest Pain Date of Service: 12/28/2022 Interpretation Summary There is no comparison study available. Patient Height 175.0 cm Patient Weight 127.0 kg Systolic Pressure 132 mmHg Diastolic Pressure 53 mmHg Study Location ECH BSA 2.4 m^2 Procedure: A complete two-dimensional transthoracic echocardiogram was performed (2D, M-mode, spectral and color flow Doppler). Study Quality: Fair. The study was technically difficult with many images being suboptimal in quality. A contrast injection of Definity was performed to improve assessment of LV function. Left Ventricle: The left ventricular mass index is increased. There is mild concentric left ventricular hypertrophy. LVEDV 299 ml with BSA 2.4 m2 The ejection fraction measured by 2D BP MOD is41%. The LV ejection fraction is severely decreased. Akinesis of the apex and periapical segments, anteroseptum with better motion of the LV base representing, until proven otherwise, LAD territory issues on a background of moderate aortic stenosis. There is no thrombus. LV diastolic function can not be accurately assessed. E/E' averaged>13 Left Atrium: The left atrial volume is mildly increased. Right Atrium: Right atrial size is normal. Right Ventricle: The right ventricular systolic function is normal. Aortic Valve: Focal calcification. The aortic valve is not well visualized. The peak aortic valve velocity 385 cm/s. Aortic mean pressure gradient= 32 mmHg. The aortic valve velocity ratio was calculated at 0.27. Mitral Valve: Both leaflets are pliable and mobile. There is trace mitral regurgitation. Tricuspid Valve: The tricuspid valve is not well visualized. There was insufficient TR detected to calculate RV systolic pr essure. Pulmonic Valve: The pulmonic valve is not well visualized. Trace pulmonic valvular regurgitation. Arteries: The aortic root is normal size. There is aortic root sclerosis/calcification. Aortic arch not seen well. Venous: Severely dilated inferior vena cava. Pericardium/Pleura: There is no pericardial effusion. MMode 2D Measurements & Calculations IVSd - 1.2 cm LVIDd - 5.9 cm LVIDs - 4.7 cm LVPWd - 1.1 cm IVS/LVPW - 1.1 FS - 20.9 % EDV(Teich) - 172.5 ml ESV(Teich) - 100.2 ml EF(Teich) - 41.9 % EF (est.) - 41.1 % EDV(cubed) - 204.3 ml ESV(cubed) - 101 ml EF(cubed) - 50.6 % LV mass(C)d - 277.7 grams LV mass(C)dI - 116.6 grams/m^2 SV(Teich) - 72.4 ml SI(Teich) - 30.4 ml/m^2 SV(cubed) - 103.3 ml SI(cubed) - 43.4 ml/m^2 Ao root diam - 3.4 cm Ao root area - 9.3 cm^2 LA dimension - 4.7 cm LA/Ao - 1.4 LVLd ap4 - 11.6 cm EDV(MOD-sp4) - 289 ml LVLs ap4 - 10.1 cm ESV(MOD-sp4) - 176 ml EF(MOD-sp4) - 39.1 % LVLd ap2 - 11.3 cm EDV(MOD-sp2) - 302 ml LVLs ap2 - 10.1 cm ESV(MOD-sp2) - 176 ml EF(MOD-sp2) - 41.7 % SV(MOD-sp4) - 113 ml SI(MOD-sp4) - 47.5 ml/m^2 SV(MOD-sp2) - 126 ml SI(MOD-sp2) - 52.9 ml/m^2 Doppler Measurements & Calculations MV E max bee - 93.3 cm/sec MV A max bee - 113.7 cm/sec MV E/A - 0.82 MV dec time - 0.17 sec Ao V2 max - 330.8 cm/sec Ao max PG - 46.5 mmHg Ao max PG (full) - 42.4 mmHg Ao V2 mean - 223.4 cm/sec Ao mean PG - 24.8 mmHg Ao mean PG (full) - 22.8 mmHg Ao V2 VTI - 64.6 cm LVOT max gradient - 4.2 mmHg LV V1 mean PG - 2 mmHg LVOT max bee - 101.7 cm/sec LV V1 mean - 68.2 cm/sec LV V1 VTI - 20.4 cm SV(Ao) - 600 ml SI(Ao) - 252 ml/m^2 PA V2 max - 121.7 cm/sec PA max PG - 5.9 mmHg Conclusion The study was technically difficult with many images beingsuboptimal in quality. The left ventricular mass index is increased. E/E' averaged >13 The ejection fraction measured by 2D BP MOD is41%. Akinesis of the apex and periapical segments, anteroseptumwith better motion of the LV base representing, until proven otherwise, LAD territory issues on a background of moderate aortic stenosis. InterpretingPhysician:Interpreting Physician: Papi Delcid, electronically signed on 2022-12-28 16:16:52.52 Physical Examination: VItals: BP 136/63 Pulse 87 Temp 36.6 ??C (97.9 ??F) Resp 20 Ht 1.753 m Wt 127 kg SpO2 93% BMI41.35 kg/m?? Temp (24hrs), Av.6 ??C (97.9 ??F), Min:36.6 ??C (97.8 ??F), Max:36.6 ??C (97.9 ??F) Ventilation: Resp: 20 SpO2: 93 % O2 Mode: Nasal Cannula Or Prongs O2 Frequency: Continuous Telemetry: NSR Intake/Output Summary (Last 24 hours) at 12/29/2022 0654 Last data filed at 12/29/2022 0100 Gross per 24 hour Intake 627.5 ml Output 775 ml Net -147.5 ml Body mass index is 41.35 kg/m??. Constitutional: alert, oriented times four and well nourished, well developed, and in no distress HENT: Head exam: normocephalic, atraumatic no JVD , no carotid bruits, trachea midline and normal to palpitation EYES: Both eyes: conjunctivae and sclerae clear, pupils equal, round, reactive to light and accommodation, 3mm bilaterally, EOM's intact CV: Cardiac Exam: S1 and S2 normal, no murmurs, no gallops, no extra heart sounds Extremity exam: 2+ radial and dorsalis pedis peripheral pulses. 1+ edema noted. Pulm: Lung sounds clear to auscultation, respiratory rate and rhythm regular GI: Bowel sounds normal. Abdomen soft, non-tender. No masses, No organomegaly Musculoskeletal: No clubbing, cyanosis, inflammatory changes. No joint deformity, swelling or tenderness. LYMPH: Neck, axillary and groin lymph nodes not palpable Skin: Skin color, texture, turgor normal. No rashes or lesions. Neurological: negative findings: speech normal, mental status intact, cranial nerves 2-12 intact Wound/Stage: No wound Psychiatric: Alert, oriented to person, place, time, and situation LAB: REVIEWED IN EMR, PERTINENT VALUES, AND DECISION MAKING, ARE INCORPORATED IN ASSESSMENT AND PLAN STUDIES: IMAGES HAVE BEEN PERSONALLY INTERPRETED IN PACS, RADIOLOGY REPORTS HAVE BEEN REVIEWED DECISION MAKING INCORPORATED INTO THE ASSESSMENT AND PLAN Patient was seen and evaluated with Ko Bautista DO. Plan of care was reviewed in detail. Associated attestation - Ko Feliciano DO - 12/29/2022 11:23 AM EDT ATTENDING NOTE: Date: 12/29/2022, 11:23 AM Patient examined with the CICU team at the bedside and pertinent radiographs and laboratory resultsevaluated with the CICU team. I agree with the documentation and assessment per RUMA Hatch note with additions and amendments per my separate note. Ko Feliciano DO EM/IM/CC * Ko Feliciano DO - 12/29/2022 6:49 AM EDT CICU Attending Note- Date of Service 12/29/22 Pt is a 77 y/o male with PMH of CABG x2 w/ porcine AVR (10 years ago in [place]), HTN, HLD, obesitywho is admitted to CICU from [place] w/ NSTEMI and shock. A/P: NSTEMI Shock, distributive vs cardiogenic. Resolved HFrEF HLD Severe Acute hypoxic resp failure -ECHO w/ EF 40% -cath severe 3 vessel disease. Patent AVERY to LAD, intermediate mid RCA stenosis, 60% LM, completely occluded SVG to ramus as VA culprit -trops peaked 68 -cont asa/statin -CXR, BCx, UA. Was on vanc/cefepime at OSH. rocephin/azithro yesterday for ? Of PNA. Seems less likely, stop abx today -cards/TAVR following -on 2L NC but tachypneic and looks a little worse than yesterday. Suspect as cause. Keep in unittoday -diurese, goal net neg 2L next 24 hours. BNP 3000s DVT ppx:scds, lovenox PUD ppx:n/a Diet: cardiac Patient remains critically ill due to the high probability of imminent or life- threatening deterioration, which required my direct attention, intervention, and personal management. I personally provided the substantive portion of critical care time for this patient. I personally provided 32 minutes of dedicated critical care time on this calendar date. This time excludes time spent on separately billable procedures. This critical care time includes, but not limited to obtaining history, examining the patient, reviewing vital signs, reviewing laboratory work and imaging, arranging treatment plans within our multidisciplinary team, discussion with consultants, frequent reassessments, and discussions with patient/family members. Ko Feliciano DO EM/IM/CC * Karen Sánchez RN - 12/28/2022 7:45 PM EDT Assumed care of patient. VSS. A/Ox4. Denies CP/SOB/N/V. Down to cath, right fem approach (closure prior to arrival back to CICU) with no intervention, see notes for future plans. Post-invasives WNL. EKG completed. PIV's patent. Blood cultures x 2, UA completed. Trending troponin. Lactic negative. IVP lasix admin. ECHO completed, results pending. Family at bedside updated. See all flowsheets. * Timothy Monroe MD - 12/28/2022 5:42 PM EDT [facility] Brief Note Cath performed by Dr. Pinedo. Patent to AVERY to LAD and occluded SVG to RI. Distal LM 80% stenosis. Severe bioprosthetic by echo and echo. Echo with AV bee 4 m/s, MG 42 mmHg. Cath with CHELITA 0.75 cm2 and MG 47 mmHg. He lives in [place] and is in [facility] for one more month. His has the valve card. I do needinformation from the valve card about valve type and size. Pt reports he had a porcine AVR 11 yearsago. Plan Continue medical management. Try to obtain gated CTA chest abdomen pelvis TAVR protocol over the weekend if his creatinine staysstable. This will help us decide about valve in valve TAVR vs. Redo surgery. Electronically signed by Timothy Monroe MD 12/28/2022 5:45 PM Addendum Valve card shows 25 mm Barnett pericardial tissue valve implanted on 09/02/13. Electronically signed by Timothy Monroe MD 12/28/2022 5:52 PM documented in this encounter H&P Notes * Michael Hernandez DO - 01/04/2023 4:24 PM EDT Images from the original note were not included. Cardiac Critical Care Admission Note Michael Hernandez DO Date: 01/04/2023, 4:25 PM ICU Day: 1 Raghu Rosenthal 1945 CC: Severe Code Status: Full Code HPI per initial provider: Raghu Rosenthal is a 77yrs Male with PMH of CAD s/p CABG x2 in [place] 10 years ago, HTN, HLD, porcine AVR who initially presented to [place] ED with complaints of SOB and midchest pressure. Patient lives in [place] with his , and is visiting [facility] for the next 3 months.He recently had a ziopatch placed by the [facility] on 12/27. Following this procedure he had worsening SOB associated with fatigue, malaise and generalized weakness. EMS was called and he was brought to [place] ED. On arrival he was noted to be in mild respiratory distress and required bipap. WBC of 19. EKG without NUNO, troponin 1.197. CXR consistent with mild interstitial edema, and a small left pleural effusion. He was given nitro sublingual and morphine, and started on BID lovenox. He was admitted to the ICU at [place]. He was started on empiric vanc, cefepime for possible infection. He was hypotensive requiring levophed with a differential of cardiogenic vs septic shock. He had a repeat EKG done on 12/28 with a new LBBB. His troponin trended as high as 39. Given concerns for acute coronary syndrome, he was transferred to [facility] for further management. On arrival to CICU, patient is awake and alert. He is on low dose levophed. He is warm to the touchand appears well perfused. POCUS with EF visually estimated at 45%. Breathing comfortably on room air. He underwent a R/LHC 12/28/2022 showin. Severe three-vessel disease with patent AVERY to LAD, intermediate stenosis in mid RCA, 60% distal left main stenosis. Culprit for his VA appears to be an occluded SVG to ramus graft. There is flowin the ramus with proximal 70% stenosis. 2. He is also noted to have severely degenerated bioprosthetic aortic valve, invasive gradients reviewed severely stenotic with mean gradient over 40 mmHg. 3. Decompensated heart failure with preserved cardiac output. We had discontinued his Levophed on arrival to the [facility]. LVEDP 30mmHg. Right heart catheterization: RA:14 RV:55/10 PA: 54/23(35) PCWP:25 Pa sat:56% Ra Sat:56% Aortic valve gradient: 48mmHg mean grad CHELITA: 0.75cm2 Cardiac output was 5.5, cardiac index is 2.3 Since being admitted, patient was treated for cardiogenic shock and noted to have severe bioprosthetic aortic valve stenosis with plans for valve in valve TAVR. This morning, he was complaining of chest pain. Review of Systems: General: no fever, chills, night sweats, anorexia, malaise, fatigue, or weight change Eyes: no diplopia, visual blurring, or visual changes, no eye discharge Ears/Nose/Throat: no tinnitus, no sinus problems, no dysphagia Cardiovascular: no palpitations, tachycardia, +chest pain Respiratory: no cough, wheezing, shortness of breath: at rest/exertion, sleep apnea. Endocrine: no thyroid disorder, diabetes, polyuria Gastrointestinal: no abdominal pain, excessive gas or bloating, constipation, diarrhea, dysphagia, hemorrhoids, decrease in appetite, nausea Genitourinary: no dysuria, frequency, hesitancy, hematuria, retention, incontinence, nocturia Musculoskeletal: no joint pain and stiffness, muscular weakness, gout, arthritis, back pain, +extremity swelling Neurologic: no light-headedness, dizziness, headaches, syncope, weakness, paralysis, numbness or tingling Skin: no rash, lesions or hair changes Psychiatric: no depression, anxiety, hallucinations, sleep disturbance Hematologic/Immunologic: no anemia, bleeding disorder Principal Problem Link: Acute coronary syndrome (CMS/HCC) Cardiogenic shock, resolved NSTEMI HFrEF with EF 41% - Patient initially presenting with cardiogenic shock and reduced EF on 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 years ago - continue GDMT with aspirin and Tricor (intolerance to statins) - continue lasix drip and monitor UOP - continue to monitor electrolytes Severe aortic stenosis Degenerated bioprosthetic aortic valve - CT surgery involved and planning for Linda TAVR - avoid beta blockers and calcium channel blockers in the preload dependent state Acute hypoxic respiratory failure - currently on 5L NC likely related to pulmonary edema - wean FiO2 as tolerated - continue Duonebs q4h PRN, IS, OOB as tolerated FILIBERTO on CKD II - creatinine steadily increasing since admission with reduced UOP over the past 24 hours - continue diuresis as above Hypertension - holding home antihypertensives Hyperlipidemia - holding statin due to intolerance CICU Admission Checklist 1. Lines/Tubes/Drains -Bruno: yes -CVC: no -Art line: no -Other: n/a 2. Nutrition Status: Nutrition Therapy Room Service Assistance Needed 3. Glycemic Control: -140 mg/dL (01/04 0548) -12/28/2022: Hemoglobin A1C 5.0 % -N/A 4. DVT Prophylaxis: lovenox 5. PUD Prophylaxis: N/A 6. Current antibiotics: None Most Recent Restraint Order (From admission, onward) None ECHO : ECHO Result Date: 12/28/2022 Reason for Exam: Chest Pain Date of Service: 12/28/2022 Interpretation Summary There is no comparison study available. Patient Height 175.0 cm Patient Weight 127.0 kg Systolic Pressure 132 mmHg Diastolic Pressure 53 mmHg Study Location E[facility] BSA 2.4 m^2 Procedure: A complete two-dimensional transthoracic echocardiogram was performed (2D, M-mode, spectral and color flow Doppler). Study Quality: Fair. The study was technically difficult with many images being suboptimal in quality. A contrast injection of Definity was performed to improve assessment of LV function. Left Ventricle: The left ventricular mass index is increased. There is mild concentric left ventricular hypertrophy. LVEDV 299 ml with BSA 2.4 m2 The ejection fraction measured by 2D BP MOD is41%. The LV ejection fraction is severely decreased. Akinesis of the apex and periapical segments, anteroseptum with better motion of the LV base representing, until proven otherwise, LAD territory issues on a background of moderate aortic stenosis. There is no thrombus. LV diastolic function can not be accurately assessed. E/E' averaged>13 Left Atrium: The left atrial volume is mildly increased. Right Atrium: Right atrial size is normal. Right Ventricle: The right ventricular systolic function is normal. Aortic Valve: Focal calcification. The aortic valve is not well visualized. The peak aortic valve velocity 385 cm/s. Aortic mean pressure gradient= 32 mmHg. The aortic valve velocity ratio was calculated at 0.27. Mitral Valve: Both leaflets are pliable and mobile. There is trace mitral regurgitation. Tricuspid Valve: The tricuspid valve is not well visualized. There was insufficient TR detected to calculate RV systolic pr essure. Pulmonic Valve: The pulmonic valve is not well visualized. Trace pulmonic valvular regurgitation. Arteries: The aortic root is normal size. There is aortic root sclerosis/calcification. Aortic arch not seen well. Venous: Severely dilated inferior vena cava. Pericardium/Pleura: There is no pericardial effusion. MMode 2D Measurements & Calculations IVSd - 1.2 cm LVIDd - 5.9 cm LVIDs - 4.7 cm LVPWd - 1.1 cm IVS/LVPW - 1.1 FS - 20.9 % EDV(Teich) - 172.5 ml ESV(Teich) - 100.2 ml EF(Teich) - 41.9 % EF (est.) - 41.1 % EDV(cubed) - 204.3 ml ESV(cubed) - 101 ml EF(cubed) - 50.6 % LV mass(C)d - 277.7 grams LV mass(C)dI - 116.6 grams/m^2 SV(Teich) - 72.4 ml SI(Teich) - 30.4 ml/m^2 SV(cubed) - 103.3 ml SI(cubed) - 43.4 ml/m^2 Ao root diam - 3.4 cm Ao root area - 9.3 cm^2 LA dimension - 4.7 cm LA/Ao - 1.4 LVLd ap4 - 11.6 cm EDV(MOD-sp4) - 289 ml LVLs ap4 - 10.1 cm ESV(MOD-sp4) - 176 ml EF(MOD-sp4) - 39.1 % LVLd ap2 - 11.3 cm EDV(MOD-sp2) - 302 ml LVLs ap2 - 10.1 cm ESV(MOD-sp2) - 176 ml EF(MOD-sp2) - 41.7 % SV(MOD-sp4) - 113 ml SI(MOD-sp4) - 47.5 ml/m^2 SV(MOD-sp2) - 126 ml SI(MOD-sp2) - 52.9 ml/m^2 Doppler Measurements & Calculations MV E max bee - 93.3 cm/sec MV A max bee - 113.7 cm/sec MV E/A - 0.82 MV dec time - 0.17 sec Ao V2 max - 330.8 cm/sec Ao max PG - 46.5 mmHg Ao max PG (full) - 42.4 mmHg Ao V2 mean - 223.4 cm/sec Ao mean PG - 24.8 mmHg Ao mean PG (full) - 22.8 mmHg Ao V2 VTI - 64.6 cm LVOT max gradient - 4.2 mmHg LV V1 mean PG - 2 mmHg LVOT max bee - 101.7 cm/sec LV V1 mean - 68.2 cm/sec LV V1 VTI - 20.4 cm SV(Ao) - 600 ml SI(Ao) - 252 ml/m^2 PA V2 max - 121.7 cm/sec PA max PG - 5.9 mmHg Conclusion The study was technically difficult with many images beingsuboptimal in quality. The left ventricular mass index is increased. E/E' averaged >13 The ejection fraction measured by 2D BP MOD is41%. Akinesis of the apex and periapical segments, anteroseptumwith better motion of the LV base representing, until proven otherwise, LAD territory issues on a background of moderate aortic stenosis. InterpretingPhysician:Interpreting Physician: Papi Delcid, electronically signed on 2022-12-28 16:16:52.52 PMH: Past Medical History: Diagnosis Date Coronary artery disease Diverticulitis Hyperlipidemia Hypertension Subdural hematoma (CMS/HCC) PSH: Past Surgical History: Procedure Laterality Date TULIO - CORONARY ARTERY BYPASS GRAFT TULIO - REPLACEMENT OF AORTIC VALVE porcine Social History: Social History Substance and Sexual Activity Alcohol Use None Social History Substance and Sexual Activity Drug Use Not on file Social History Tobacco Use Smoking Status Former Types: Cigarettes Smokeless Tobacco Never Social History Social History Narrative Not on file Family History: No family history on file. Medications: Home Medications Medications Prior to Admission Medication Sig Dispense Refill amLODIPine (NORVASC) 10 mg Oral Tablet Take 1 Tablet by mouth daily. aspirin 81 mg Oral Tablet, Delayed Release (E.C.) Take 1 Tablet by mouth daily. cetirizine (ZyrTEC) 10 mg Oral Tablet 1 Tablet. chlorhexidine (PERIDEX) 0.12 % Mucous Membrane Mouthwash 15 mL by Swish & Spit route twice a day. cholecalciferol (VITAMIN D-3) 25 mcg (1,000 unit) Oral Tablet Take 1 Tablet by mouth daily. choline fenofibrate (TRILIPIX) 135 mg Oral Capsule, Delayed Release(E.C.) Take 1 Capsule by mouth daily. diclofenac sodium (VOLTAREN) 1 % Topical Gel gel APPLY 2 GRAMS TO UPPER AND 4 GRAMS TO LOWER EXTREMITIES TOPICALLY FOUR TIMES DAILY NEEDED FOR PAIN/INFLAMMATION. *DO NOT EXCEED 16 GRAMS DAILY TO ANY JOINT OF LOWER EXTREMITIES. DO NOT EXCEED 8 GRAMS DAILY TO ANY JOINT OF UPPER EXTREMITIES. DO NOTEXCEED TOTAL DOSE OF 32 GRAMS DAILY OVER ALL JOINTS. escitalopram (LEXAPRO) 20 mg Oral Tablet Take 1 Tablet by mouth daily. fluticasone propionate (FLONASE) 50 mcg/actuation Nasal [place], Suspension by Nasal route. hydroCHLOROthiazide (HYDRODIURIL) 25 mg Oral Tablet Take 1 Tablet by mouth daily. losartan (COZAAR) 100 mg Oral Tablet Take 1 Tablet by mouth daily. magnesium oxide (MAG-OX) 400 mg Oral Tablet Take 1 Tablet by mouth daily. rosuvastatin (CRESTOR) 20 mg Oral Tablet Take 1 Tablet by mouth at bedtime. spironolactone (ALDACTONE) 25 mg Oral Tablet Take 1 Tablet by mouth daily. tiotropium bromide (SPIRIVA RESPIMAT) 2.5 mcg/actuation Inhalation Mist INHALE 2 PUFFS BY MOUTH EVERY DAY FOR BREATHING Sodium Fluoride 5000 Plus 1.1 % Dental Cream SMARTSIG:Topical SCHEDULED MEDICATIONS albuterol, , [Held by Provider] amLODIPine, 10 mg, DAILY aspirin, 81 mg, DAILY AT 0800 [Held by Provider] cetirizine, 10 mg, DAILY cholecalciferol, 1,000 Units, DAILY enoxaparin (LOVENOX) injection, 40 mg, DAILY AT 1600 escitalopram, 20 mg, DAILY fenofibrate, 145 mg, WITH BREAKFAST gabapentin, 100 mg, QHS [Held by Provider] hydroCHLOROthiazide, 25 mg, DAILY lidocaine, 1 Patch, DAILY [Held by Provider] losartan, 100 mg, DAILY melatonin, 5 mg, QHS sevelamer carbonate, 0.8 g, TID-WITH MEALS [Held by Provider] spironolactone, 25 mg, DAILY [Held by Provider] tiotropium, 1 Capsule, RTDAILY CONTINUOUS IVF OR DRIPS furosemide, Last Rate: 15 mg/hr (01/04/23 1500) Allergies: Amoxicillin, Atorvastatin, Clavulanic acid, Hydrocodone, Pravachol [pravastatin], and Tetracycline Physical Examination: VItals: BP 117/60 Pulse 78 Temp 36.8 ??C (98.3 ??F) Resp 17 Ht 1.753 m Wt 120.4 kg NaP069% BMI 39.17 kg/m?? Temp (24hrs), Av.8 ??C (98.3 ??F), Min:36.7 ??C (98 ??F), Max:37.1 ??C (98.7 ??F) FSBS: No data found. No results for input(s): GLUCOSE POCT in the last 6 hours. Ventilation: Resp: 17 SpO2: 98 % O2 Mode: Nasal Cannula Or Prongs O2 Frequency: Continuous Secretions: None Telemetry: NSR AdmissionWeight: 121.7 kg Intake/Output Summary (Last 24 hours) at 01/04/2023 1625 Last data filed at 01/04/2023 1500 Gross per 24 hour Intake 592.23 ml Output 1450 ml Net -857.77 ml Body mass index is 39.17 kg/m??. Constitutional: oriented times four and well nourished, well developed, and in no distress HENT: normocephalic, atraumatic no JVD , no carotid bruits, trachea midline and normal to palpitation EYES: Both eyes: conjunctivae and sclerae clear, pupils equal, round, reactive to light and accommodation, EOM's intact CV: S1 and S2 normal, holosystolic murmur, no gallops, no extra heart sounds, 2+ pulses. 2+ edema noted. Pulm: Lung sounds clear to auscultation, respiratory rate and rhythm regular GI: Bowel sounds normal. Abdomen soft, non-tender. No masses, No organomegaly Musculoskeletal: No clubbing, cyanosis, inflammatory changes. No joint deformity, swelling or tenderness. LYMPH: Neck, axillary and groin lymph nodes not palpable Skin: Skin color, texture, turgor normal. No rashes or lesions. Neurological: negative findings: speech normal, mental status intact Wound/Stage: No wound Psychiatric: Alert, oriented to person, place, time, and situation LAB: Recent Labs 01/01/23 2352 01/02/23 0532 01/03/23 0038 01/03/23 0545 01/03/23 2115 01/04/23 0548 SODIUM 134* < > -- < > 130* 131* POTASSIUM 4.2 < > -- < > 4.8* 4.5 CHLORIDE 100 < > -- < > 96* 96* BICARBONATE 20* < > -- < > 22* 23 BUN 77* < > -- < > 93* 100* CREATININE 1.94* < > -- < > 2.37* 2.61* GLUCOSE 135* < > -- < > 145* 140* CALCIUM 8.6 < > -- < > 8.5 8.8 MAGNESIUM 2.0 < > -- < > 2.1 2.2 PHOSPHORUS 4.8* < > -- < > 5.3* 6.3* TROPONIN 14.16* -- 12.26* -- -- -- < > = values in this interval not displayed. ABG: Recent Labs 01/03/23 1245 PH 7.41 PCO2 34 PO2 87 BASEEXCESS -3.0 CXR: Reviewed;LAB: REVIEWED IN EMR, PERTINENT VALUES, AND DECISION MAKING, ARE INCORPORATED IN ASSESSMENT AND PLAN. STUDIES: IMAGES HAVE BEEN PERSONALLY INTERPRETED IN PACS, RADIOLOGY REPORTS HAVE BEEN REVIEWED. DECISION MAKING INCORPORATED INTO THE ASSESSMENT AND PLAN. Patient was seen and evaluated with Dr. Courtney Smith. Plan of care was reviewed in detail. Electronically signed by Michael Hernandez DO Associated attestation - Maxwell Smith MD - 01/04/2023 6:46 PM EDT Cardiac ICU Attending Note: 01/04/23 The patient's history and care were reviewed with Dr. Hernandez ([facility] fellow). I have seen and examined the patient and confirmed their findings. I have reviewed the medical record including pertinent radiographs and laboratory results. I agree with the management as outlined in their note and discussed on rounds with additions and amendments per my note. Reason for ICU Admission: Severe Patient Summary: 77yrs old Male with PMH significant for HTN, HLD, CABG x 2, severe s/p porcine AVR (~10 years ago) who presented to [facility] CICU on 01/04/22 for volume optimization prior to valve in valve TAVR scheduled on 01/08/23. Labs and Imaging reviewed Assessment and Plan: 1. Acute hypoxemic respiratory failure secondary to severe with HFrEF 2. Significant cardiac co-morbidities: HTN, HLD, CABG x 2, severe s/p porcine AVR (~10 years ago) 3. Acute Kidney injury on CKD Plan: Cautious diuresis with lasix gtt (patient is pre-load dependent) Pressors: Levophed PRN for goal MAP > 65 Monitor BMP, UOP, lytes; replete PRN CTS on board: plan for valve in valve TAVR on 01/08/23 FEN: Cardiac Diet Prophylaxis: heparin Family updated. Full Code Disposition: patient remains critically ill, continue current level of care. This patient is critically ill with significant potential for decline. 39 minutes critical care time spent excluding teaching and procedures. Maxwell Smith MD Parking Line Paintermaterials intern Division of Pulmonary, Critical Care and Sleep Medicine [facility], [facility] * Ko Feliciano, - 12/28/2022 1:46 PM EDT CICU Attending Note- Date of Service 12/28/22 Pt is a 77 y/o male with PMH of CABG x2 w/ porcine AVR (10 years ago in [place]), HTN, HLD, obesitywho is admitted to CICU from [place] w/ NSTEMI and shock. Currently CP/SOB free on arrival A/P: NSTEMI Shock, distributive vs cardiogenic ?PNA HLD -get EKG, labs -ECHO -trend trops, latest was reportedly 40 at OSH -cont asa/statin -heparin gtt -levo for MAP >65. Pt is warm and well perfused. POCUS w/ mildly depressed EF. Not floridly volume overloaded -CXR, BCx, UA. Was on vanc/cefepime at OSH. Will take to rocephin/azithro -cards consult -hold bb given shock DVT ppx:scds, heparin gtt PUD ppx:n/a Diet: NPO for now Patient remains critically ill due to the high probability of imminent or life- threatening deterioration, which required my direct attention, intervention, and personal management. I personally provided the substantive portion of critical care time for this patient. I personally provided 38 minutes of dedicated critical care time on this calendar date. This time excludes time spent on separately billable procedures. This critical care time includes, but not limited to obtaining history, examining the patient, reviewing vital signs, reviewing laboratory work and imaging, arranging treatment plans within our multidisciplinary team, discussion with consultants, frequent reassessments, and discussions with patient/family members. Ko Feliciano DO EM/IM/CC * Natividad Hatch ACNP - 12/28/2022 1:45 PM EDT Images from the original note were not included. Cardiac Critical Care Admission Note RUMA Hsu Critical care time provided exclusive of separately billable procedures: 30 minutes. Date: 12/28/2022, 2:34 PM ICU Day: 1 Raghu Rosenthal 1945 Referring Hospital: [facility] CC: NSTEMI Code Status: Full Code HPI: Raghu Rosenthal is a 77yrs Male with PMH of CAD s/p CABG x2 in [place] 10 years ago, HTN, HLD, porcine AVR who initially presented to [place] ED with complaints of SOB and midchest pressure. Patient lives in [place] with his , and is visiting [facility] for the next 3 months. He recently had a ziopatch placed by the [facility] on 12/27. Following this procedure he had worsening SOB associated with fatigue, malaise and generalized weakness. EMS was called and he was brought to [place] ED. On arrival he was noted to be in mild respiratory distress and required bipap. WBC of 19. EKG without NUNO, troponin 1.197. CXR consistent with mild interstitial edema, and a small left pleural effusion. He was given nitro sublingual and morphine, and started on BID lovenox. He was admitted to the ICU at [place]. He was started on empiric vanc, cefepime for possible infection. He was hypotensive requiring levophed with a differential of cardiogenic vs septic shock. He had a repeat EKG done on 12/28 with a new LBBB. His troponin trended as high as 39. Given concerns for acute coronary syndrome, he was transferred to [facility] for further management. On arrival to CICU, patient is awake and alert. He is on low dose levophed. He is warm to the touchand appears well perfused. POCUS with EF visually estimated at 45%. Breathing comfortably on room air. Review of Systems: General: no fever, chills, night sweats, anorexia, malaise, fatigue, or weight change Eyes: no diplopia, visual blurring, or visual changes, no eye discharge Ears/Nose/Throat: no tinnitus, no sinus problems, no dysphagia Cardiovascular: +chest pain; no palpitations, tachycardia, chest pain or pressure, orthopnea, syncope, edema. Respiratory: +shortness of breath, cough; no cough, wheezing, sleep apnea. Endocrine: no thyroid disorder, diabetes, polyuria Gastrointestinal: no abdominal pain, excessive gas or bloating, constipation, diarrhea, dysphagia, hemorrhoids, decrease in appetite, nausea Genitourinary: no dysuria, frequency, hesitancy, hematuria, retention, incontinence, nocturia Musculoskeletal: no joint pain and stiffness, muscular weakness, gout, arthritis, back pain, extremity swelling Neurologic: no light-headedness, dizziness, headaches, syncope, weakness, paralysis, numbness or tingling Skin: no rash, lesions or hair changes Psychiatric: no depression, anxiety, hallucinations, sleep disturbance Hematologic/Immunologic: no anemia, bleeding disorder Principal Problem Link: NSTEMI (non-ST elevated myocardial infarction) ([facility] Patient Active Hospital Problem List: Shock Assessment: Hypotensive at OSH requiring pressors. Distributive vs cardiogenic. WBC 19. Plan: Levophed to maintain MAP>65 Empiric rocephin, azithromycin ECHO Trend lactic Acute Coronary Syndrome, Coronary Artery Disease Assessment: EKG with new LBBB. Troponin uptrended to 39. Presented with Chest pain. History of CABGx2 10 years ago. Plan: Heparin drip Aspirin Allergy to statins so will hold for now Holding BB, SHERMAN until hemodynamics allow ECHO, EKG CMP, Trop, Lipid panel, TSH, HgbA1C [facility] consulted FILIBRETO on CKD Assessment: baseline appears to be around 1.5 Plan: Strict I/O Monitor on BMP Avoid nephrotoxic drugs Hypertension Assessment: Chronic. Losartan, amlodipine, aldactone, HCTZ at home. Plan: Holding antihypertensives until hemodynamics allow Hyperlipidemia Assessment: Chronic Plan: Statin History of Porcine AVR History Subdural Hematoma History Diverticulitis CICU Admission Checklist 1. Lines/Tubes/Drains -Bruno: no -CVC: no -Art line: no -Other: PIVs 2. Nutrition Status: NPO (Nothing By Mouth) Diet 3. Glycemic Control: - -No results found for requested labs within last 365 days -N/A 4. DVT Prophylaxis: heparin 5. PUD Prophylaxis: N/A 6. Current antibiotics: Rocephin and Azithromycin Most Recent Restraint Order (From admission, onward) None ECHO : No results found. PMH: Past Medical History: Diagnosis Date Coronary artery disease Diverticulitis Hyperlipidemia Hypertension Subdural hematoma (CMS/HCC) PSH: Past Surgical History: Procedure Laterality Date TULIO - CORONARY ARTERY BYPASS GRAFT TULIO - REPLACEMENT OF AORTIC VALVE porcine Social History: Social History Substance and Sexual Activity Alcohol Use None Social History Substance and Sexual Activity Drug Use Not on file Social History Tobacco Use Smoking Status Former Types: Cigarettes Smokeless Tobacco Never Social History Social History Narrative Not on file Family History: No family history on file. Medications: Home Medications No medications prior to admission. SCHEDULED MEDICATIONS CONTINUOUS IVF OR DRIPS Allergies: Amoxicillin, Atorvastatin, Clavulanic acid, Hydrocodone, Pravachol [pravastatin], and Tetracycline Physical Examination: VItals: BP 122/65 Pulse 82 Ht 1.753 m Wt 127.1 kg SpO2 95% BMI 41.38 kg/m?? No data recorded. FSBS: No data found. Recent Labs 12/28/22 1403 GLUCOSE POCT 134* Ventilation: SpO2: 95 % Telemetry: NSR AdmissionWeight: 121.7 kg Intake/Output Summary (Last 24 hours) at 12/28/2022 1434 Last data filed at 12/28/2022 1400 Gross per 24 hour Intake -- Output 175 ml Net -175 ml Body mass index is 41.38 kg/m??. Constitutional: alert, oriented times four and well nourished, well developed, and in no distress HENT: Head exam: normocephalic, atraumatic no JVD , no carotid bruits, trachea midline and normal to palpitation EYES: Both eyes: conjunctivae and sclerae clear, pupils equal, round, reactive to light and accommodation, 3mm bilaterally, EOM's intact CV: Cardiac Exam: S1 and S2 normal, no murmurs, no gallops, no extra heart sounds Extremity exam: 2+ radial and dorsalis pedis peripheral pulses. 1+ edema noted. Pulm: Lung sounds clear to auscultation, respiratory rate and rhythm regular GI: Bowel sounds normal. Abdomen soft, non-tender. No masses, No organomegaly Musculoskeletal: No clubbing, cyanosis, inflammatory changes. No joint deformity, swelling or tenderness. LYMPH: Neck, axillary and groin lymph nodes not palpable Skin: Skin color, texture, turgor normal. No rashes or lesions. Neurological: negative findings: speech normal, mental status intact, cranial nerves 2-12 intact Wound/Stage: No wound Psychiatric: Alert, oriented to person, place, time, and situation LAB: Recent Labs 12/28/22 1403 GLUCOSE 134* ABG: No results for input(s): PH, PCO2, PO2, BASEEXCESS in the last 72 hours. Invalid input(s): BASEDEFICITE CXR: Reviewed;LAB: REVIEWED IN EMR, PERTINENT VALUES, AND DECISION MAKING, ARE INCORPORATED IN ASSESSMENT AND PLAN. STUDIES: IMAGES HAVE BEEN PERSONALLY INTERPRETED IN PACS, RADIOLOGY REPORTS HAVE BEEN REVIEWED. DECISION MAKING INCORPORATED INTO THE ASSESSMENT AND PLAN. Patient was seen and evaluated with Ko Feliciano DO. Plan of care was reviewed in detail. Associated attestation - Ko Feliciano DO - 12/28/2022 2:37 PM EDT ATTENDING NOTE: Date: 12/28/2022, 2:37 PM Patient examined with the CICU team at the bedside and pertinent radiographs and laboratory resultsevaluated with the CICU team. I agree with the documentation and assessment per RUMA Hatch note with additions and amendments per my separate note. Ko Feliciano DO EM/IM/CC documented in this encounter Procedure Notes * Lilibeth Stanford MD - 01/12/2023 5:01 PM EDT Images from the original note were not included. Cardiac Electrophysiology Lab [facility] [place] [address] Patient Name: Raghu Rosenthal MR #: [id number] [facility] #:[id number] :1945 Age:77yrs Date of procedure: 01/12/2023 Referring MD :Dr. Canales Staff Cardiac Stoker Installation Mechanic: Lilibeth Stanford MD Interventions: Subcutaneous implantation of a cardiac resynchronization therapy pacemaker pulse generator and transvenous implantation of an atrial pacing lead, a right ventricular pacing lead and a pacing lead into the left ventricular coronary venous system under fluoroscopic guidance. Indications: Class I Sinus rhythm LBBB QRSd 140 ms Chronic systolic heart failure with an LVEF = 40-45 % NYHA functional Class III heart failure symptoms with optimal recommended medical therapy Implant data: MARINE TECHNICIAN-P generator: Location: left prepectoral area Model:Biotronik Edora 8 HFT QP [id number] Serial number [id number] Atrial pacing lead: Location: Right atrial appendage Type: Endocardial IS-1 Steroid eluting bipolar active fixation (extendable-retractable) Biotronik solia s 53 [id number] Right ventricular defibrillator lead: Location: RV septum Type: Endocardial Steroid eluting bipolar active fixation (extendable-retractable) Biotronik solia s 60 [id number] Left ventricular pacing lead: Type: IS-4 Steroid eluting bipolar left ventricular over the wire cardiac vein pacing lead passive fixation Biotronik sentus promri otw qp l 85/49 [id number] LV2-can offset -30 Programming Data Pacing Mode: DDD LRL :70 BPM URL: 130 BPM Anesthesia: Midazolam and Fentanyl were administered according to moderate conscious sedation guidelines. Operative note The patient was taken to the Cardiac Electrophysiology Lab in the fasted state with an intravenous line in place. The entire chest, supraclavicular fossae, neck and shoulders were prepared with 10.5 ml Chorapep (2% chlorhexidine and 70% Isopropyl alcohol). Large sterile surgical sheets were used. The operative area was draped in a sterile fashion with plastic adhesive drape impregnated with iodoform applied from shoulder to shoulder at the level of the clavicle to create a sterile barrier from the shoulder level down. This area was generously infiltrated with 20 cc of Xylocaine injection (1% Lidocaine 10mg/ml and Epinephrine (0.1mg/ml) 1:100,000), subdermally and subcutaneously. An incision was initiated medially with a #15 blade and brought down in an inferolateral direction. Using a Weitlaner retractor for retraction the incision is carried down to the anterior pectoral fascia. A prepectoral pocket was then created as described below. Electrocautery was used in the coagulation mode to secure hemostasis. Using Castillo retractor the dissection was carried out inferiorly in the plane between the anteriorpectoral fascia and subcutaneous tissue using electrocautery in the cutting mode. Bleeding points were secured by coagulation electrocautery. The dissection was also carried out superiorly to 2 cm tothe infraclavicular space in a similar fashion. L extrathoracic axillary access was obtained and a J- shaped guidewire was advanced through the needle to the inferior vena cava under fluoroscopy. The straight end of this guidewire was secured to the sterile drape suing a curved hemostat. Another 2 separate puncture of the axillary vein was obtained in a similar manner and 2 J-shaped guide wires were advanced under fluoroscopy to the inferior vena cava. Over the first guidewire an 7 Fr Safe Sheath (FABPulous; Hemostatic tear-away introducer sheath with side infusion port) with a 20-degree angular bend at the tip was advanced under fluoroscopy and the dilator and the guidewire were removed. The right ventricular electrode with a soft curvedstylet was advanced through the sheath into the right ventricular outflow tract using fluoroscopy in the PA projection. The curved stylet was removed and a straight stylet was advanced and the electrode was slowly withdrawn from the pulmonary artery dragging the tip along the interventricular septum using fluoroscopy in the TORRE projection. When the electrode tip reached the lower third of the septum the straight stylet was retracted and the tip was made floppy and advanced to the apex with the PSA cables attached to the lead to observe for current of injury. The active fixation screw was extended by the pinch-on tool attached to the lead pin and rotating it clockwise 10 times and visualizing it under fluoroscopy. The straight stylet was withdrawn to the superior vena cava and secures to sterile drape with a hemostat forceps. Adequate redundancy was provided in the right atrium and this was examined with the patient asked to perform deep inspiration and to check for any loss of redundancy with this maneuver. Pacing and sensing threshold testing was performed with data as noted above.The peel away introducer sheath was removed by splitting the sheath. The suture sleeve was advanceddown the shaft of the lead body to the vicinity of the venous entry. Two sutures using 0 Ethicon braided polyester nonabsorbable CT-1 were applied around the suture sleeve and the lead securing the lead to the anchoring sleeve first and then ligatures were applied around the suture sleeve and lead,incorporating a generous amount of pectoral muscle. A 9 Fr [place] Sheath was inserted over an 0.35 Whorley wire and the dilator and guidewire removed.CS access was obtained by telescoping the renal and impress catheters over an 0.14 Whisper wire. The Tesha sheath was telescoped over it into the CS and renal and impress catheters were removed. A St. Car OTW soft tip venogram balloon catheter was then advanced into the coronary sinus via the guide sheath and the balloon was inflated. Occlusive coronary sinus venography was then performed using 10 cc of radiocontrast injection. Cineangiographic views were obtained in the GREEK/TORRE/AP projection. Target vein selected was a posterolateral branch. It was engaged using the 0.14 whisper EDS wire. A Biotronik ngsl-sjy-whej left ventricular pacing lead was advanced over the Whisper EDS wire intothe target branch. Pacing and sensing threshold testing was performed with data as noted above. There was no diaphragmatic pacing at 10 V pacing at 1.5 ms pulse width. The whisper wire was removed and a finishing stylet was advanced into the lead. The haemostatic valve adapter was then removed. Using the splitter provided, the renal sheath was removed. The Tesha sheath was removed under fluoroscopic guidance and split taking care to leave adequate slack in the lead. The suture sleeve was advanced down the shaft of the lead body to the vicinity of the venous entry. Two sutures using 0 Ethicon braided polyester nonabsorbable CT-1 were applied around the suture sleeve and the lead securing the lead to the anchoring sleeve first and then ligatures were applied around the suture sleeve and lead, incorporating a generous amount of pectoral muscle. Over the third guidewire a 7 Fr Safe Sheath (FABPulous; Hemostatic tear- away introducer sheath with side infusion port) with a 20-degree angular bend at the tip was advanced under fluoroscopyand the dilator and the guidewire were removed. An atrial electrode with the lead tip straightened with a straight stylet by extending it to the end of the electrode was advanced through the sheath into the middle right atrium using fluoroscopy in the PA projection. The straight stylet was withdrawn and a J stylet was advanced under fluoroscopic observation in the PA projection until the lead assumed its J configuration with the tip pointing upward. The lead body was advanced slowly at the venous entry site and eventually this seated in the right atrial appendage with a ???liliane?? up and down motion. The active fixation screw was extended by the pinch-on tool attached to the lead pin and rotating it clockwise 10 times and visualizing it under fluoroscopy using magnification. The straight stylet was withdrawn to the superior vena cava and secures to sterile drape with a hemostat forceps. A dequate loop size was provided in the right atrium and this was examined with the patient asked to perform deep inspiration and to check for any loss of redundancy with this maneuver. Pacing and sensing threshold testing was performed with data as noted above. The peel away introducer sheath was removed by splitting the sheath. The suture sleeve was advanced down the shaft of the lead body to thevicinity of the venous entry. Two sutures using 0 Ethicon braided polyester nonabsorbable CT-1 wereapplied around the suture sleeve and the lead securing the lead to the anchoring sleeve first and then ligatures were applied around the suture sleeve and lead, incorporating a generous amount of pectoral muscle. The pocket was thoroughly inspected for bleeding points and coagulation electrocautery was used formore haemostatic control. Pocket irrigation with Bacitracin (50,000 units in 200 cc saline) was performed. The IS-1, IS-4 pins were then advanced into their respective ports on the header of the generator and the set screws were extended using the screw concrete mixing truck driver. The generator was placed in the pocket with the lead redundancy coiled behind the generator avoiding any acute angulations in the course of the leads. The subcutaneous layer was approximated and closed in layers. 3M??? Steri- Strip??? Adhesive Skin Closures were applied across the incision and 3M??? Steri-Strip??? Compound Benzoin Tincture was used to increase adhesion of 3M??? Steri-Strip??? Skin Closures to the skin. . A sterile pressure dressing was applied. Estimated Blood loss: minimal cc Total amount of contrast used: 25 cc of Omnipaque (iohexol) 350 mg/dl Complications: None The patient was transported out of the cardiac electrophysiology laboratory in a hemodynamically stable condition. Lilibeth Stanford MD Parking Line Painter, Cardiac Electrophysiology [facility] [place] [facility] * Jose C Weinberg RN - 01/12/2023 9:55 AM EDT ULTRASOUND GUIDED PIV BY VASCULAR ACCESS TEAM Left arm U/S PIV requested for procedure. History and physical, MAR reviewed for appropriate line placement. Potential access sites are examined with ultrasound for vessel selection. Ultrasonic gel is appliedand real-time ultrasound is performed monitoring the advancement of the access needle into the lumen of the selected vessel. Ultrasound of right arm(s) done prior to placement. Site prepped with Chloraprep, PIV placed in theregion of the newby cephalic vein, in 1 attempt. IV catheter gauge 20 length 1.75 inches. Pt. Tolerated PIV placement without complaints Yes. Complications no Ultrasound images stored in PACS. Thank you for this referral, Jose C Weinberg, Vascular Access Team [phone] * Timothy Monroe MD - 01/08/2023 12:20 PM EDT DATE OF PROCEDURE: 01/08/23 PREOPERATIVE DIAGNOSES: 1. Severe symptomatic bioprosthetic aortic valve stenosis. 2. S/p AVR with 25 mm Magna in 2012 3. CAD s/p CABG with AVERY to LAD and SVG to RI in 2012. Cath showed patent AVERY and occluded SVG. 4. Acute on chronic systolic CHF, EF 40% (on IV lasix drip in CICU) 5. Hyponatremia (hypervolemic) 6. FILIBERTO on CKD-III, creatinine peak at 2.6, improved to 1.7 pre-procedure 7. HTN 8. Hyperlipidemia 9. Obesity POSTOPERATIVE DIAGNOSES: 1. Severe symptomatic bioprosthetic aortic valve stenosis. 2. S/p AVR with 25 mm Magna in 2012 3. CAD s/p CABG with AVERY to LAD and SVG to RI in 2012. Cath showed patent AVERY and occluded SVG. 4. Acute on chronic systolic CHF, EF 40% (on IV lasix drip in CICU) 5. Hyponatremia (hypervolemic) 6. FILIBERTO on CKD-III, creatinine peak at 2.6, improved to 1.7 pre-procedure 7. HTN 8. Hyperlipidemia 9. Obesity PROCEDURE PERFORMED: Right femoral artery, right femoral vein, left femoral artery, left femoral vein ultrasound guided access. Right femoral artery preclosure. Left coronary angiography Left main protection with 4.5 x 32 mm Synergy stent (stent NOT deployed at the end). IVUS left main, IVUS LCx Transcatheter aortic valve replacement with a 26 mm Evolut FX (within 25 mm Magna valve) via right femoral artery. Post dilatation with 23 mm True balloon. SHAKE SPLITTER right femoral artery with 8.0 x 80 mm balloon for balloon tamponade. MENTAL HEALTH PROFESSIONAL: Timothy Monroe MD. INTERVENTIONAL CASING BUILDER: Sari Ortiz MD. ATTENDING SURGEON: Lit Hartley MD. ANESTHESIA: Conscious sedation ESTIMATED BLOOD LOSS: 50 mL. CARDIOPULMONARY BYPASS TIME: Not required. DEVICE IMPLANT: 26 mm Evolut FX. INDICATIONS FOR OPERATION: The patient is an 77-year-old patient with a prior history of AVR, CABG,CHF, CKD, obesity, HTN. The patient now presents with severe symptomatic prosthetic aortic stenosis, NSTEMI and acute CHF. Cath showed patent AVERY, occluded SVG to RI and 60% distal LM stenosis. CTA showed low LM height. Pt was not felt to be a candidate for redo SAVR. The patient was found to be high risk for surgical aortic valve replacement and was evaluated by the TAVR team and felt to be a candidate for high risk valve in valve transcatheter aortic valve replacement with LM protection. Coronary angiography Left main: Large caliber vessel. Focal 50-60% distal left main stenosis. LAD: 100% occluded proximally RI: Large caliber vessel. Mild diffuse disease. LCx: Large caliber vessel. Mild diffuse disease. IVUS IVUS LCx: Large caliber vessel with minimal plaque in proximal portion. IVUS left main: There is focal, eccentric, moderately calcified stenosis in distal left main with MLA 7.7 mm2. Given large MLA, we elected not to treat this vessel (unless needed at the end for LM protection). DESCRIPTION OF PROCEDURE: The patient was correctly identified and taken to the hybrid operating room and placed on the operating room table in a supine position. Conscious sedation anesthesia was performed by the anesthesiologist and appropriate monitoring lines were placed. A timeout was performed. The chest, abdomen and bilateral lower extremities were prepped and draped into a sterile field. The Zonare ultrasound was used to Identify the right and left femoral arteries and right radial artery. Using Seldinger technique and fluoroscopic guidance, the vessels were cannulated with 6-Dutch sheaths. The Zonare ultrasound was used to locate the right and left femoral veins which were cannulated with 5 and 7-Dutch sheaths respectively. The sheath was placed using Seldinger technique and fluoroscopic guidance. The temporary right ventricular pacing wire was placed through the right femoral venous sheath into the right ventricle and pacing was confirmed. The pacing wire was secured. A 5-F rench pigtail catheter was placed in the non-coronary sinus through the right radial artery sheath.The fluoroscopic angles were confirmed with root angiography and adjusted appropriately. We gave heparin to obtain an ACT greater than 300. Preclosure of the right femoral artery was performed using two percloses at 10 o'clock and 2 o'clock positions. The right femoral artery was then dilated using16 and 18 Fr Cook dilators following which a 14 Fr Cook sheath was placed over an Amplatz super stiff wire. Via left femoral artery, coronary angiography was performed with findings above. LM was engaged using a 6 Fr JL4 guide. The LCx was wired using a Runthrough wire that was parked distally in the distal LCx. Next IVUS of LM and LCx was performed (see above). We then advanced a 6 Fr guidelinerand through this a 4.5 x 32 mm Synergy GARRETT that was parked in the mid to distal LCx. The guide and guideliner were pulled back/disengaged as needed during the case to allow for valve placement and assessment of coronary perfusion. We then placed an JR4 catheter up near the prosthetic aortic valve and crossed it with a straight wire. The JR4 catheter was then placed in the ventricle and then exchanged for a Confida wire. The Evolut FX loading system was used to load the valve on the delivery catheter which was then used to deliver the valve. After confirming appropriate valve loading under fluoroscopy, a #26 Evolut valve was advanced across the clark's point aortic valve under fluoroscopic guidance. 'Cusp overlap technique' was used to deploy the valve. The valve was partially deployed at 5 mm depth relative to the noncoronarycusp in the 'overlap view' under rapid ventricular pacing at 180 bpm to ensure MAP below 50 mm Hg. This was followed by a 4 minute wait time for the valve to anchor in the annulus. After this, the valve was reinspected in the coplanar view to confirm adequate valve position relative to the left coronary sinus. Aortogram was performed at 80% deployment which showed good left main perfusion. Once we were satisfied with the valve position, the remainder of the valve was released slowly. alve delive ry system was removed and 14 Fr Cook sheath was reinserted. The valve was post dilated with 23 mm True balloon under rapid ventricular pacing to ensure MAP less than 50 mmHg. Further evaluation of the valve was then performed by echocardiography. Echocardiogram showed good position of the valve with no paravalvular aortic regurgitation. Repeat aortogram showed excellent LM and RCA perfusion. We then retrieved the 4.5 x 32 mm Synergy stent. Final left coronary angiography showed LELA-3 flow, wire, guide and guideliner were removed. After measuring LV-Ao gradients, the wire and catheter were removed from the left ventricle. The 14Fr Cook sheath was removed and the right common femoral artery was perclosed. Pelvic angiogram was then obtained to visualize the TAVR access site using an Omni catheter inserted via the left femoralartery. This showed active extravasation at TAVR access site below the inferior epigastric artery. The Omni was parked in the SFA using a glidewire and this was exchanged with an Amplatz Super Stiff wire over which a 6 fr Anderson sheath was placed up and over from the LFA to the right external iliac artery. Balloon tamponade of the access site was performed using 8.0 x 80 mm balloon inflated at 4 ZACK for 10 min. Final angiogram via 6 fr Anderson sheath after removing the balloon showed normal flow in R SHOVEL OILER, SFA and profunda with no further extravasation. At this point in time, protamine was given to counteract heparin. The sheath in the left femoral artery was removed and hemostasis was achievedusing a Starclose device. PVR's indicated good flow in both legs. The left and right groin insertion sites were closed with Monocryl. The pacing lead was removed. The femoral venous sheath was removed after removing the pacing wire and manual pressure was held to control bleeding. Sterile dressingswere applied. All needle, sponge and instrument counts were correct. The patient taken to the Cardiac Surgical Intensive Care Unit, in a stable condition. Post procedure echo hemodynamics Mean gradient: 5 mmHg CHELITA: 2.0 cm2 Post procedure invasive hemodynamics Peak to peak LV-Ao gradient: 10 mmHg Impression 1. Severe aortic stenosis s/p successful TF TAVR with 26 mm Evolut FX within 25 mm Magna valve withexcellent result. Recommendations 1. Recommend DAPT with asa and clopidogrel for 6 months. 2. Recommend TTE prior to discharge, at 30 days and at 1 year. Timothy Monroe MD * Michael Talavera RN - 01/06/2023 11:01 PM EDT ULTRASOUND GUIDED PIV BY VASCULAR ACCESS TEAM History and physical, MAR reviewed for appropriate line placement. Potential access sites are examined with ultrasound for vessel selection. Ultrasonic gel is appliedand real-time ultrasound is performed monitoring the advancement of the access needle into the lumen of the selected vessel. Ultrasound of right arm(s) done prior to placement. Site prepped with Chloraprep, PIV placed in theregion of the newby cephalic vein, in 1 attempts. IV catheter gauge 20 length 1.75in. Pt. Tolerated PIV placement without complaints Yes. Complications no Ultrasound images stored in PACS. Thank you for this referral, Michael Talavera, Vascular Access Team [phone] * Karen Rey RCP - 01/02/2023 11:08 AM EDT PFT's completed. Pre/Post spirometry obtained. Pt did struggle throughout testing and oxygen was used intermittently. Pt had several episodes when needing to catch his breath. Due to pt's shortness of breath and needing several breaks, requiring oxygen, lung volumes were not obtained. made aware(internal sales engineer at #[phone]). A copy of the report was exported to the pt's EHR. Pt was [facility] back to [facility] by RN via wheelchair. Pt came down on 4L of O2 via NC and was on and off 4L during testing. Pt's spo2 never dropped below 91% but his RR was noted to be in the upper 30's at times with labored breathing. * Aroldo Gillette RN - 01/02/2023 1:51 AM EDT ULTRASOUND GUIDED PIV BY VASCULAR ACCESS TEAM History and physical, MAR reviewed for appropriate line placement. Potential access sites are examined with ultrasound for vessel selection. Ultrasonic gel is appliedand real-time ultrasound is performed monitoring the advancement of the access needle into the lumen of the selected vessel. Ultrasound of Left arm(s) done prior to placement. Site prepped with Chloraprep, PIV placed in the region of the Left Palmar Cephalic vein, in 1 attempts. IV catheter gauge 20 length 1.75. Blood collected from IV after placement, tubes labeled at bedside per policy, and given to primary RN: hieu Pt. Tolerated PIV placement without complaints Yes. Complications no Ultrasound images stored in PACS. Thank you for this referral, Aroldo Gillette, Vascular Access Team [phone] * Carlos Pinedo MD - 12/28/2022 5:29 PM EDT LEFT CARDIAC CATHETERIZATION PROCEDURE NOTE Attending: Carlos Pinedo MD Stab Setter And Driller: none Pre-procedure Diagnosis: NSTEMI Post-procedure Diagnosis: See impression below Procedure performed: Left cardiac catheterization (see dictated report for description) Coronary angiography Bypass graft angiography Right heart catheterization Aortic valve gradients. Indication: NSTEMI Shock requiring pressors History: 77-year-old male with prior history of CABG, aortic valve replacement 10 years ago, hypertension, hyperlipidemia, obesity who presented with chest pains that have since resolved with troponin now at 69, patient was hypotensive requiring low-dose Levophed, has heart failure with pulmonary edema. Referred for left and right heart catheterization for NSTEMI and shock. Outlined risks to include urgent heart surgery, heart attack, stroke, abnormal heart rhythm, bleeding, infection, vascular trauma, chance she could be allergic to the contrast dye and at an outside shot that the dye may damage the kidneys. The patient understands and does agree to proceed. Findings: LV = LVEDP is 30 mmHg. LM = distal left main has a 60% stenosis and trifurcates into an LAD, ramus and circumflex. LAD = proximal LAD is completely occluded and fills via AVERY to LAD. LCX =Circumflex is a codominant vessel that gives off small OM1 and a medium caliber OM 2 which hasminor irregularities and gives off a small L PDA. RCA = RCA is a medium caliber, codominant vessel that gives off a medium caliber PDA. It has diffuse 50 to 60% tandem stenosis. Ramus appears to have an SVG that is filling retrograde likely culprit for this VA. Proximal ramus has a 70% stenosis, AVERY to LAD is widely patent, distal to the AVERY touchdown there is a 50% stenosis in the LAD, it retrograde fills a medium caliber first diagonal. First diagonal has a proximal 70% stenosis. SVG to ramus is completely occluded. Right heart catheterization: RA:14 RV:55/10 PA: 54/23(35) PCWP:25 Pa sat:56% Ra Sat:56% Aortic valve gradient: 48mmHg mean grad CHELITA: 0.75cm2 Cardiac output was 5.5, cardiac index is 2.3 EBL: Less than 10cc Specimens removed: none Anesthesia: local with 1% xylocaine Complications: none Devices Implanted: none Access site: Right common femoral artery, right femoral vein. Hemostasis: Angio-Seal for right arterial closure and manual hold for vein. Conscious sedation details: 1 mg of Versed and 25 mcg of fentanyl. Patient also received 60 mg of Lasix during the procedure after noted to have elevated filling pressures. Technique: Right femoral venous access was obtained with a 7 Dutch sheath and then a [place]- Karon catheter was advanced into pulmonary artery and pressures were obtained along with saturations. Right common femoral artery access was obtained under ultrasound guidance. Next we used a JL 4 catheter to engage the left main. Next we used a JR4 cath to engage the right coronary artery followed by occluded SVG stump followed by left subclavian artery. Next we switched out over a J-wire for her AVERY catheter. We used a JR4 catheter with a straight glide to cross the bioprosthetic valve and used a Eros for simultaneous pressure gradients. Catheters were removed or wires. Next we used an Angio-Seal for rightfemoral artery hemostasis. We attempted to use a Vascade for the femoral venous sheath however the Vascade device came out without applying the collagen plug. We just held manual pressure. IMPRESSION: 1. Severe three-vessel disease with patent AVERY to LAD, intermediate stenosis in mid RCA, 60% distal left main stenosis. Culprit for his VA appears to be an occluded SVG to ramus graft. There is flowin the ramus with proximal 70% stenosis. 2. He is also noted to have severely degenerated bioprosthetic aortic valve, invasive gradients reviewed severely stenotic with mean gradient over 40 mmHg. 3. Decompensated heart failure with preserved cardiac output. We had discontinued his Levophed on arrival to the [facility]. LVEDP 30mmHg. PLAN: Would recommend evaluation by the structural heart team. He will likely need a valve in valve TAVR.At that point we can decide revascularization strategy for his distal left main which involves a trifurcation. Continue aspirin 81 mg indefinitely. Can discontinue heparin at this point. Continue IV diuresis. He received 60 mg of Lasix in the lab. Patient tolerated procedure well. I tried to communicate these findings to his family however no numbers listed in the chart. I did explain these findings to the patient. Carlos Pinedo MD 12/28/2022 documented in this encounter Consult Notes * Olga Mejía, RN - 01/19/2023 7:48 AM EDT Physical Medicine and Rehabilitation Clearance Note Raghu Rosenthal a 77yrs old Male admitted to [facility] on 12/28/2022 for NSTEMI and valve replacement. Hospital course complicated by respiratory distress. Patient was seen and examined and meets medical and functional criteria for admission to Acute Inpatient Rehabilitation at [facility] today PENDING COVID TEST. GEMS: Mobility Level 3- Standing activities with assist Patient will be admitted to rehab today PENDING COVID TEST once the primary team completes the discharge orders including discharge medication reconciliation and the brief rehab discharge note (Complete the smartphrase .rehabnow in the progress note section). A full discharge summary is still required, but awaiting it's completion will NOT delay the admission to rehab. Olga Mejía RN 01/19/2023 7:49 AM Olga Mejía RN, BS, MS Rehab [facility] [employer] [facility] Manager Victor Manuel preferred Or call [phone] or [phone] * Olga Mejía RN - 01/18/2023 6:30 AM EDT Psychiatric hospital Inpatient Rehab follow up: -chart reviewed: yo male who presented on 12/28/22 with NSTEMI and valve replacement 01/08/23 -please see PM&R consult note from 01/09/23 -PT/OT 01/15-: Tolerating all OOB activities with min assist; ambulated 20 ft in total; endurance good for 42 minutes activities; therapies recommending IPR -platelets appear generally stable -Pt and spouse indicating they prefer to attend IPR here, then return home to [place] afterward -acute team indicating patient medically ready for Rehab -IPR is again at capacity today -we have added Mr. Rosenthal to our wait-list and will notify acute team and admit once we have a bed available, most likely tomorrow Olga Mejía RN, BS, MS Re[facility] [employer] Manager [phone] Call or Victor Manuel * lOga Mejía RN - 01/17/2023 7:25 AM EDT Psychiatric hospital Inpatient Rehab follow up: -chart reviewed: yo male who presented on 12/28/22 with NSTEMI and valve replacement 01/08/23 -please see PM&R consult note from 01/09/23 -PT/OT 01/15/23: Tolerating all OOB activities with min assist; ambulated 15 ft in total; endurancefair for 56 minutes; unaware of BM during session requiring ample amount of time for toileting activities; therapies recommending IPR -platelets appear generally stable -IPR is at capacity today -we'll follow up tomorrow Olga Mejía RN, BS, MS Rehab [facility] [employer] Manager [phone] Call or Cortext * Olga Mejía RN - 01/15/2023 7:42 AM EDT Psychiatric hospital Inpatient Rehab follow up: -chart reviewed: yo male who presented on 12/28/22 with NSTEMI and valve replacement 01/08/23 -please see PM&R consult note from 01/09/23 -PT/OT 01/11/23: Tolerating all OOB activities with max2-min assist; ambulated 35 ft; good endurance for 42 minutes; therapies recommending IPR; will need updated notes -platelets improving, 127k 01/15/23 -continues on Bumex drip; will need to be stable off IV drips -we'll follow up Sunday Olga Mejía RN, BS, MS Rehab [employer] Manager [phone] Call or Cortext * Olga Mejía RN - 01/12/2023 6:42 AM EDT Psychiatric hospital Inpatient Rehab follow up: -chart reviewed: yo male who presented on 12/28/22 with NSTEMI and valve replacement 01/08/23 -please see PM&R consult note from 01/09/23 -PT/OT 01/11/23: Tolerating all OOB activities with max2-min assist; ambulated 35 ft; good endurance for 42 minutes; therapies recommending IPR -platelets continue down-trending, 89k 01/11/23 -continues on Bumex drip; will need to be stable off IV drips -we'll follow up Sunday Olga Mejía RN, BS, MS Rehab [facility] [employer] Manager [phone] Call or Cortext * Kendra Whitehead RDN - 01/11/2023 3:40 PM EDTAssociated Order(s): CONSULT - DOUBLE REAMER OPERATOR/DIETITIAN Patient: Raghu Rosenthal Today's Date / Time: 01/11/2023 / 3:39 PM Room/Bed: [facility] LOS: 14 days Nutrition Monitoring Contact: Clinical RDN [facility] Nutrition Interventions & Recommendations for Provider 1. Continue current diet, as tolerated. 2. Recommend adding thera-m supplement to maximize micronutrient intake. 3. RDN added Ensure Max BID, Magic Cup BID, and snacks to help promote po intake. Recommended Malnutrition Diagnosis At risk for Malnutrition (01/07/23) Nutrition Assessment Problem/PMH: 77 yo male who presented with complaints of SOB and midchest pressure. PMH includes CAD, HTN, HLD, AVR. Current Status: F/u. Visited and spoke with pt and pt's . Pt now s/p TAVR on 01/08. Transferred back to CICU 01/10 for ongoing decompensated heart failure. Continues to have poor appetite. ONS and snacks ordered per discussion with pt's . Reason for Visit: Follow Up Contact with Patient: Visited Food Insecurity: Unable to Assess (01/07/23) Anthropometric Measurements Admit Weight: 121.7 kg Current Weight: 123.8 kg [place] Body Weight (kg) (Nutrition): 73 Nutrition Focused Physical Findings/Exam Skin: Incision x 2 Diet Order: 2000 kcal carb controlled + 2 g Na Feeding Route: po Intake/Output: Net -10.8 L since admit, 0x BM x 4 days, -4.2 L UOP Nutrition Intake: 25% x 3 meals Nutrition Adequacy: Not Meeting Needs Barriers To Nutrition Intake: Poor Appetite Meds/Supplements: Dulcolax, bumex, colace, insulin, protonix, glycolax, aldactone Labs: Na 133, Cl 95, BUN 96, Creat 2.10, GFR 32, FSBS 99-155 Comparative Standards Protein Needs: 146 g/day (2 g/kg IBW) Calorie Needs: 4622-2500 kcal/day (22-25 kcal/kg IBW) Fluid Needs: per MD Nutrition Diagnosis Oral or Nutrition Support Intake; Inadequate oral intake (NI-2.1) related to poor appetite as evidenced by documented po intake.- continues Nutrition Monitoring Nutrition intake/modality, GI function, skin integrity, wt/fluid trends, labs, meds, and plan of care Follow-up Date: 01/16/23 Clinical RDN Name: Kendra Whitehead MS, RDN, LDN * Olga Mejía RN - 01/11/2023 8:33 AM EDT Psychiatric hospital Inpatient Rehab follow up: -chart reviewed: yo male who presented on 12/28/22 with NSTEMI and valve replacement 01/08/23 -please see PM&R consult note from 01/09/23 -PT/OT 01/09/23: Tolerating all OOB activities with min assist; ambulated 10-25 ft; good endurance for 24 minutes; therapies recommending IPR -platelets continue down-trending, 89k 01/11/23 -continues on Bumex drip; will need to be stable off IV drips -we'll follow up tomorrow Olga Mejía RN, BS, MS Re[facility] [employer] Manager [phone] Call or Cortext * Sri Greer PA-C - 01/11/2023 8:10 AM EDTAssociated Order(s): CONSULT - HEART FAILURE Please see note by Osmany Isidro MD dated 01/10 for Advanced Heart Failure Consult note. Electronically signed by Sri Greer PA-C 01/11/2023 8:10 AM * Osmany Isidro MD - 01/10/2023 11:25 AM EDT Images from the original note were not included. [facility] HEART FAILURE PROGRAM ADVANCED HEART FAILURE CONSULTATION NOTE DATE: 01/10/2023 REFERRING PHYSICIAN: Anam Winchester MD CONSULTING PHYSICIAN: Ame Hardy MD REASON FOR CONSULT: Acute heart failure REASON FOR HOSPITALIZATION: Decompensated heart failure DATE OF ADMISSION: 12/28/2022 1:45 PM LENGTH OF STAY: 13 days ASSESSMENT: Raghu Rosenthal is a 77yrs old Male with medical history significant for CAD s/p CABG (AVERY-LAD, SVG-OM)and s/p Tissue AVR 25mm pericardial valve in 2012, CKD 3, HTN, and HLD, consulted for ADHF. Acute systolic HFrEF, LVEF 40%: looks wet and warm. Likely 2/2 degenerative prosthetic AV stenosis.Last TTE in 02/2022 with LVEF of 65% and increasing aortic prosthetic valve gradients. Severe symptomatic bioprosthetic aortic valve stenosis S/P TransCatheter Aortic Valve Replacement ([id number], 26 Medtronic Evolut Pro, via the Left Transfemoral Approach) on 01/08/23, POD#3. S/p AVR with 25 mm Magna in 2012. Bradycardia with LBBB and first degree AV block, prolonged Qtc (likely 2/2 HR) CAD s/p CABG with AVERY to LAD and SVG to RI in 2012. Cath 12/28 showed patent AVERY and occluded SVG. Hyponatremia (hypervolemic) FILIBERTO on CKD-III, creatinine peak at 2.6, now 2.1 and stable Anemia: Hb 10 on admission, now 8 and stable TCP: Pt fluctuating, now 90. 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 (Joint pain with atorvastatin in thepast). Initiate Zetia. - TTE prior to discharge, at 30 days and at 1 year - Discussed the case with Dr. Stanford. Will evaluate for PPM if bradycardia persists for another 24Hr. - Guideline Directed Medical Therapy: > SHERMAN: hold > Beta Ricardo: hold > spironolactone: continue 25 mg OD > Farxiga: Hold - No immediate indication for invasive monitoring or hemodynamic-guided therapy - Heart Failure Management: > Strict I/O's and daily weight. > Daily BNP level in AM. > Fluid restriction of 2000 cc/day. Above findings, management strategy, goals of care, and prognosis were discussed with Dr. Hardy and reviewed with the patient. HISTORY OF PRESENT ILLNESS: Raghu Rosenthal is a 77yrs old Male with medical history significant for CAD s/p CABG (AVERY-LAD, SVG-OM)and s/p Tissue AVR 25mm pericardial valve in 2012, CKD 3, HTN, and HLD, consulted for ADHF. Patient initially presented with SOB and chest pressure on 12/28 as a TF from [facility]. He was found to be in cardiogenic shock, acute decompensated HF (LVEF 40% 12/28, last TTE in 02/2022 with LVEF of 65% and increasing aortic prosthetic valve gradients), NSTEMI 2/2 occluded SVG to ramus graft on cA 12/28, and severe degenerative prosthetic AVR stenosis. He underwent TransCatheter Aortic Valve Replacement ([id number], 26 Medtronic EvolutPro, via the Left Transfemoral Approach) on 01/08/23. Post procedure course is significant for bradycardia with HR 30-40 bpm with LBBB and first degree AV block on EKG. He is also on 4L oxygen via NC which is thought to be 2/2 ADHF. He has been diuresedwith IV Bumex gtt (neg 9.9 L since admission). At the time of evaluation today POD#3, he reports his initial presenting symptoms of SOB and CP have resolved. He has been walking short distances and sitting on chairs while in CVICU. His only complaints are CHANDRA, fatigue, and arthralgia in his back. He is being transferred today to CICU. REVIEW OF SYSTEMS: General: No fever. Eyes: denies changes in vision, no vision loss. HENT: No hearing loss or ringing in ears Neuro: No seizures. No syncope. No headache. No motor or sensory symptoms. Denies dizziness Cardiology: no chest pain or palpitations, denies leg pain with walking Pulmonary: No SOB, Coughing, or wheezing. JORDAN GI: No abdominal pain. No melena. No hematochezia. No nausea. No vomiting. No constipation. No diarrhea. : No dysuria. No hematuria. NO hesitancy or frequency. Endocrine: No heat or cold intolerance. No polyuria or polydypsia. No hair loss. Skin: No rash or suspicious lesions. Hem: No purpura. PAST MEDICAL HISTORY: Past Medical History: Diagnosis Date Coronary artery disease Diverticulitis Hyperlipidemia Hypertension Subdural hematoma (CMS/HCC) PAST SURGICAL HISTORY: Past Surgical History: Procedure Laterality Date Left Main Stent Placement Left 01/08/2023 [place] [facility] [place] [facility] REPLACEMENT, AORTIC VALVE, TRANSCATHETER, FEMORAL APPROACH (MEDTRONIC 26 ELSA); Intraoperative Echocardiogram Left 01/08/2023 [place]formed [place] [facility] [place] [facility] [place]IO - CORONARY ARTERY BYPASS GRAFT [place]IO - REPLACEMENT OF AORTIC VALVE porcine SOCIAL HISTORY: Social History Tobacco Use Smoking status: Former Types: Cigarettes Smokeless tobacco: Never FAMILY HISTORY: No family history on file. ALLERGIES: Allergies Allergen Reactions Hydrocodone-Acetaminophen Shortness of Breath Problems breathing Venom-Honey Bee Shortness of Breath Morphine Sulfate Nausea and Vomiting Amoxicillin Mild diarrhea Atorvastatin Joint pain Clarithromycin Clavulanic Acid diarrhea Hydrocodone Bad reaction Indomethacin Lansoprazole Leflunomide Rash RASH Pravachol [Pravastatin] rash Tetracycline swelling Unclassified Drug Nausea and Vomiting Other reaction(s): Other (See Comments) IV dyes all extremtites cold MEDICATIONS: Reviewed. PHYSICAL EXAMINATION: Blood pressure (!) 121/44, pulse 50, temperature 36.5 ??C (97.7 ??F), resp. rate 21, height 1.753 m, weight 126.9 kg, SpO2 99 %. Constitutional: Obese tired appearing. No acute distress. Eyes: conjunctiva within normal limits, no discharge from right and left eye. HENT: Normocephalic, atraumatic. Oropharynx clear and moist. Neck: Supple. JVP difficult to assess due to body habitus. Cardiovascular: Normal S1. Normal S2. Bradycardiac. ESM+. Regular rhythm. Normal radial pulses bilaterally. Normal pedal pulses bilaterally. 2+ BL pitting lower extremity edema. Warm bilateral lower extremities Pulmonary/Chest: Breathing even and unlabored. CTA bilaterally. No rales. No wheezing. GI: Soft, nontender. +BS in 4 quadrants. Neuro: No focal motor or sensory deficit. Psychiatric: A&O x4, mood, affect and thought content within normal limits. Intake/Output Summary (Last 24 hours) at 01/10/2023 1424 Last data filed at 01/10/2023 1400 Gross per 24 hour Intake 1865.03 ml Output 3960 ml Net -2094.97 ml Wt Readings from Last 5 Encounters: 01/09/23 126.9 kg DIAGNOSTICS: LABS: Recent Labs 01/08/23 0439 01/08/23 0954 01/08/23 1134 01/08/23 1234 01/08/23 1721 01/09/23 0219 01/09/23 1445 01/09/23 2321 01/10/23 0311 HGB 9.9* < > 9.2* 8.7* -- 8.4* -- -- 8.2* HCT 30.9* < > 28.2* 27.8* -- 26.9* -- -- 26.1* PLATELET 117* -- -- 177 -- 105* -- -- 90* WBC 4.78 -- -- 13.14* -- 12.69* -- -- 7.22 SODIUM 133* -- -- 134* -- 134* 132* 132* 133* POTASSIUM 3.3* -- -- 3.5 < > 3.4* 3.4* 3.4* 4.5 BUN 97* -- -- 96* -- 95* 93* 96* 91* CREATININE 1.69* -- -- 1.78* -- 2.04* 2.18* 2.17* 2.10* GFR 42* -- -- 39* -- 33* 31* 31* 32* < > = values in this interval not displayed. Recent Labs 01/08/23 0439 01/09/23 0444 01/10/23 0311 PT 19.2* -- -- BNP -- 3,973* 2,732* EKG: Date Rhythm QRSd LBBB 01/09/23 Sinus bradycardia 135 ms Incomplete DEVICE THERAPY: None CARDIAC CATHETERIZATION/ CORONARY ANGIOGRAPHY: LV = LVEDP is 30 mmHg. LM = distal left main has a 60% stenosis and trifurcates into an LAD, ramus and circumflex. LAD = proximal LAD is completely occluded and fills via AVERY to LAD. LCX =Circumflex is a codominant vessel that gives off small OM1 and a medium caliber OM 2 which hasminor irregularities and gives off a small L PDA. RCA = RCA is a medium caliber, codominant vessel that gives off a medium caliber PDA. It has diffuse 50 to 60% tandem stenosis. Ramus appears to have an SVG that is filling retrograde likely culprit for this VA. Proximal ramus has a 70% stenosis, AVERY to LAD is widely patent, distal to the AVERY touchdown there is a 50% stenosis in the LAD, it retrograde fills a medium caliber first diagonal. First diagonal has a proximal 70% stenosis. SVG to ramus is completely occluded. Right heart catheterization: RA:14 RV:55/10 PA: 54/23(35) PCWP:25 Pa sat:56% Ra Sat:56% Aortic valve gradient: 48mmHg mean grad CHELITA: 0.75cm2 Cardiac output was 5.5, cardiac index is 2.3 IMPRESSION: 1. Severe three-vessel disease with patent AVERY to LAD, intermediate stenosis in mid RCA, 60% distal left main stenosis. Culprit for his VA appears to be an occluded SVG to ramus graft. There is flowin the ramus with proximal 70% stenosis. 2. He is also noted to have severely degenerated bioprosthetic aortic valve, invasive gradients reviewed severely stenotic with mean gradient over 40 mmHg. 3. Decompensated heart failure with preserved cardiac output. We had discontinued his Levophed on arrival to the [facility]. LVEDP 30mmHg. ECHOCARDIOGRAPHY : 12/28/2022 The study was technically difficult with many images being suboptimal in quality. The left ventricular mass index is increased. E/E' averaged >13 The ejection fraction measured by 2D BP MOD is41%. Akinesis of the apex and periapical segments, anteroseptum with better motion of the LV base representing, until proven otherwise, LAD territory issues on a background of moderate aortic stenosis. 02/22/2022 Interpretation Summary 1. The left ventricle is mildly dilated by LVEDV of 160mL. Global and segmental systolic function is normal with a visually estimated LVEF of 65%. 2. The right ventricle is normal in size and global systolic function. 3. There is a bioprosthetic aortic valve present, known to be a 25mm pericardial tissue valve implanted on 09/02/2013. It appears well seated with no apparent regurgitation. Prosthetic valve gradients are elevated with mTVG of 26 mmHg and pTVG 48 mmHg. The DVI is 0.38. 4. No vegetations are seen on the valves. Consider ODILIA if clinically indicated. 5. When compared to the prior study dated 03/07/2018, the aortic prosthetic valve gradients have increased. See remainder of report for complete findings. Osmany Isidro MD, A Cardiovascular Sciences Fellow [facility] Cortext preferred After-hours pager: [phone] cc: Anam Winchester MD Associated attestation - Ame Hardy MD - 01/10/2023 10:33 PM EDT Images from the original note were not included. Psychiatric hospital Heart Failure Team Date: 01/10/23 Raghu Rosenthal was discussed with Dr. Isidro. I facilitated the development of the plan of care in collaboration with the heart failure team. Ame Hardy M.D., [facility] Advanced Heart Failure Makeup Artist Contact via Unisf[employer] please * Diamond Yann Carlos, DO - 01/09/2023 10:51 AM EDTAssociated Order(s): CONSULT - PHYSICAL MEDICINE/REHAB - [facility] - INPATIENT REHAB Images from the original note were not included. Department of Physical Medicine and Rehabilitation Consult Note for Inpatient Rehabilitation Patient Name: Raghu Rosenthal : 1945 Room #: CV217/CV217 Admit Date: 12/28/2022 Rehabilitation Consult Diagnoses Rehab Diagnosis: Cardiac: 09 Cardiac To: Physical Medicine and Rehabilitation From: Tania Hartley MD Date: 01/09/2023 Etiology: S/P TAVR (transcatheter aortic valve replacement) Rehabilitation Consult Assessment/Recommendations: Patient may potentially be a good candidate for inpatient rehab as he has functional needs. Patientis from [place] and has questions about being in IPR as the place they are renting, will at end of month prior to returning home. Patient would like to consider IPR and discuss with spouse. Medically, patient is not ready as he is currently on IV Bumex drip, epinephrine drip, increasing creatinine and will need to see downtrending of oxygen requirements. IPR will follow-up on 01/11. Thank you for this consult. Admission to [facility] requires medical necessity, 2 therapy need, ability to tolerate 3 hours of therapya day, and a firm disposition plan. Please be aware that admission is dependent on bed availabilityand insurance authorization. Rehab admission process for covid testing effective 07/31/22: Psychiatric hospital patients will need to have a COVID [...] not cleared by IC prior to admission. 1. Impaired mobility and ADLs - impaired mobility and ADLs resulting from the above and multiple comorbidities, would benefit from rehab for the following: Plan: - PT: balance, functional mobility, gait training, transfer training, improving strength, improvingendurance, wheelchair mobility, education on assistive devices - OT: ADLs, iADLs, adaptive equipment training, transfer training 01/08/23 TransCatheter Aortic Valve Replacement ([id number], 26 Medtronic Evolut Pro, via the Left Transfemoral Approach) EF 35% (01/08/2023) Cardiogenic shock Acute on chronic HFrEF NSTEMI HLD -Therapies as above -Patient on pressor support wean as appropriate -Bumex GTT -Strict I's and O's, daily weights -Spironolactone -Pending echo read -Avoid nephrotoxins and hypotension -Pulm toileting, monitor O2, wean as tolerated -ASA/Plavix -Statin -GDMT per primary, currently beta-ricardo on hold due to recent TAVR VTE Prophylaxis: per primary History of Present Illness: Raghu Rosenthal is a 77yrs old White Male with past medical history of CAD s/p CABG x2 in [place] 10 years ago, HTN, HLD, porcine AVR who initially presented to [place] ED with complaints of SOB and midchest pressure. Patient lives in [place] with his , and is visiting [facility] for the next 3 months.He recently had a ziopatch placed by the [facility] on 12/27. Following this procedure he had worsening SOB associated with fatigue, malaise and generalized weakness. EMS was called and he was brought to [place] ED. On arrival he was noted to be in mild respiratory distress and required bipap. WBC of 19. EKG without NUNO, troponin 1.197. CXR consistent with mild interstitial edema, and a small left pleural effusion. He was given nitro sublingual and morphine, and started on BID lovenox. He was admitted to the ICU at [place]. He was started on empiric vanc, cefepime for possible infection. He was hypotensive requiring levophed with a differential of cardiogenic vs septic shock. He had a repeat EKG done on 12/28 with a new LBBB. His troponin trended as high as 39. Given concerns for acute coronary syndrome, he was transferred to [facility] for further management. On arrival to CICU, patient is awake and alert. He is on low dose levophed. He is warm to the touchand appears well perfused. POCUS with EF visually estimated at 45%. He underwent a R/LHC 12/28/2022 showin. Severe three-vessel disease with patent AVERY to LAD, intermediate stenosis in mid RCA, 60% distal left main stenosis. Culprit for his VA appears to be an occluded SVG to ramus graft. There is flowin the ramus with proximal 70% stenosis. 2. He is also noted to have severely degenerated bioprosthetic aortic valve, invasive gradients reviewed severely stenotic with mean gradient over 40 mmHg. 3. Decompensated heart failure with preserved cardiac output. We had discontinued his Levophed on arrival to the [facility]. LVEDP 30mmHg Patient was treated for cardiogenic [...] complaints. Reports he and his are from [place] and were scheduleto return back at end of the month as they were down in [place] to get away from cold weather for [...] with ambulation for approximately 20ft with RW. Past Medical History: Diagnosis Date Coronary artery disease Diverticulitis Hyperlipidemia Hypertension Subdural hematoma (CMS/HCC) Allergies Allergen Reactions Hydrocodone-Acetaminophen Shortness of Breath Problems breathing Venom-Honey Bee Shortness of Breath Morphine Sulfate Nausea and Vomiting Amoxicillin Mild diarrhea Atorvastatin Joint pain Clarithromycin Clavulanic Acid diarrhea Hydrocodone Bad reaction Indomethacin Lansoprazole Leflunomide Rash RASH Pravachol [Pravastatin] rash Tetracycline swelling Unclassified Drug Nausea and Vomiting Other reaction(s): Other (See Comments) IV dyes all extremtites cold acetaminophen tablet, 1,000 mg, EVERY 8 HOURS aspirin, 81 mg, DAILY cefUROXime, 1.5 g, EVERY 12 HOURS clopidogreL, 75 mg, DAILY docusate sodium, 100 mg, BID escitalopram, 20 mg, DAILY fenofibrate, 145 mg, WITH BREAKFAST gabapentin, 100 mg, QHS hepARIN subcutaneous injection, 7,500 Units, Q8HR insulin lispro, , FIVE TIMES A DAY INSULIN pantoprazole, 40 mg, 0600 sevelamer carbonate, 0.8 g, TID-WITH MEALS sodium chloride, 5 mL, Q6HR spironolactone, 25 mg, DAILY tiotropium, 1 Capsule, RTDAILY traZODone, 100 mg, QPM bumetanide, Last Rate: 2 mg/hr (01/09/23 1009) EPINEPHrine, Last Rate: 0.019 mcg/kg/min (01/09/23 1040) albuterol, 2.5 mg, [id number] calcium gluconate, 1 g, PRN magnesium sulfate adult replacement, 2 g, PRN ondansetron, 4 mg, [id number] Past Surgical History: Procedure Laterality Date Left Main Stent Placement Left 01/08/2023 [place] by [place] [facility] [place] [facility] REPLACEMENT, AORTIC VALVE, TRANSCATHETER, FEMORAL APPROACH (MEDTRONIC 26 ELSA); Intraoperative Echocardiogram Left 01/08/2023 Performed by [place]ania [place] [facility] [place] [facility] TULIO - CORONARY ARTERY BYPASS GRAFT TULIO - REPLACEMENT OF AORTIC VALVE porcine No family history on file. The patient's family history was reviewed but is not pertinent to the current condition. Social History Socioeconomic History Marital status: Tobacco Use Smoking status: Former Types: Cigarettes Smokeless tobacco: Never Review of Systems: A complete review of systems was obtained; all other systems were reviewed and are otherwise negative except as stated below. (-) Headache, Dizziness, Fainting (-) Chest pain, Palpitations (-) Shortness of breath (-) Abdominal pain, Nausea, Vomiting Rehabilitation Consult Physical Exam: Vitals: Blood pressure 149/56, pulse 64, temperature 36.6 ??C (97.9 ??F), resp. rate 18, height 1.753 m, weight 126.9 kg, SpO2 97 %. No data found. Physical Exam: General: morbidly obese appearing Male sitting in chair in NAD HEENT: NCAT, conjunctiva clear, mucosal membranes moist CV: RRR, extremities well perfused Pulm: CTA bilaterally, effort normal, no increased WOB. On 6L NC. No distress Abdomen: Soft, non-distended. obese Neurologic: Alert and awake, RUE: 5/5 strength, LUE: 5/5 strength, RLE: 5/5 strength, LLE: 5/5 strength MSK: no obvious deformity or signs of trauma, moves all extremities. 2+ edema present Skin: Warm & Dry Psych: Appropriate mood & affect RH MD Consult Labs: Recent Labs 01/09/23 0219 01/09/23 0302 01/09/23 0731 BUN 95* -- -- SODIUM 134* -- -- POTASSIUM 3.4* -- -- CHLORIDE 97* -- -- BICARBONATE 27 -- -- GLUCOSE 181* < > 163* CREATININE 2.04* -- -- ANIONGAP 10 -- -- CALCIUM 8.2* 4.5 -- -- < > = values in this interval not displayed. WBC (White Blood Cell Count) Date/Time Value Ref Range Status 01/09/2023 02:19 AM 12.69 (H) 4.50 - 11.00 k/uL Final Hemoglobin Date/Time Value Ref Range Status 01/09/2023 02:19 AM 8.4 (L) 13.0 - 18.0 g/dL Final Hematocrit Date/Time Value Ref Range Status 01/09/2023 02:19 AM 26.9 (L) 40.0 - 52.0 % Final Platelet Count Date/Time Value Ref Range Status 01/09/2023 02:19 AM 105 (L) 150 - 440 k/uL Final See top of note for assessment and recommendations. Yann Fields, 01/09/2023 For new consults, pager: [phone] For follow up on consults, please call: [phone] Associated attestation - Christine Mclean MD - 01/09/2023 8:28 PM EDT I was consulted by Dr. Hartley to evaluate patient for admission to the inpatient rehabilitation based on functional status and medical needs I discussed the patient with Dr. Fields and the rehabilitation preadmission team. I then saw and evaluated patient personally. I have reviewed the resident's note and agree with the rehabilitation assessment and plan of care. Thank you for the consult, Iwill forward note to Dr. Hartley, please find our recommendations below. Please do not hesitate to contact me with any questions and thank you for allowing us to participate in the care of this patient. Agree with A/P except and/or adding the following: I evaluated patient at request of the above provider to determine patient's candidacy for an IPR admission, as patient now has impaired mobility, function and ADL's that occurred after sp TAVR. ( Today, I have reviewed all test, imaging, documents and notes done by acute primary providers and consultants, therapist and have independently interpreted the same. I have also discussed today with rehab admissions team (nurses and therapist) work-up reviewed by me and plan to follow to determine patient's IPR candidacy.) -Patient is currently not medically ready for an IPR admit. We will fu to re- assess medical stability and if patient would like therapies at [facility] vs closer to home. -Recommend Physical Therapy: for balance, functional mobility, gait training, ROM, transfer training, improving strength, improving endurance, wheelchair mobility if indicated and education on assistive devices. -Recommend Occupational Therapy:for ADLs, iADLs, adaptive equipment training, transfer training, safety awareness, and functional mobility. Christine Mclean MD Department of Physical Medicine and Rehabilitation * Olga Mejía RN - 01/09/2023 10:47 AM EDT Psychiatric hospital Inpatient Rehab consult received. Chart reviewed. 77 yo male who presented on 12/28/22 with NSTEMI and valve replacement 01/08/23. PT 01/05/23: Tolerating all OOB activities with min assist; ambulated 15 ft; therapies recommending IPR. Pt will be seen at bedside with a full PM&R consult to follow. Thank you for this referral. Olga Mejía RN, BS, MS [facility] Manager [phone] Call or Cortext * Carlos Vieyra PA-C - 01/03/2023 5:02 PM EDTAssociated Order(s): CONSULT - UROLOGY - [facility] - [facility] CONSULT Patient Name: Raghu Rosenthal Address: [address] [place], [place] [id number] Patient (home) Date of : 1945 Today's Date: 01/03/2023 [facility] UROLOGY CONSULT Chief Complaint: No chief complaint on file. Raghu Rosenthal is a 77yrs old, Male with PMH of CAD s/p CABG x2 in [place] 10 years ago, HTN, HLD, porcine AVR who initially presented to [place] ED with complaints of SOB and midchest pressure. Transferred to [facility] in cardiogenic shock and admitted to CICU. Urology consulted due to low UOP despite bruno catheter. He tells me he gets up about 4 times/ night to urinate at baseline. He has some hesitancy and weak stream as well. Never been seen by a urologist in past. ROS: 10 point ROS negative or non-contributory except as noted in subjective/ HPI. Allergies as of 12/28/2022 - Reviewed 12/28/2022 Allergen Reaction Noted Amoxicillin 12/28/2022 Atorvastatin 12/28/2022 Clavulanic acid 12/28/2022 Hydrocodone 12/28/2022 Pravachol [pravastatin] 12/28/2022 Tetracycline 12/28/2022 Past Medical History: Diagnosis Date Coronary artery disease Diverticulitis Hyperlipidemia Hypertension Subdural hematoma (CMS/HCC) Past Surgical History: Procedure Laterality Date TULIO - CORONARY ARTERY BYPASS GRAFT TULIO - REPLACEMENT OF AORTIC VALVE porcine No family history on file. Social History Socioeconomic History Marital status: Tobacco Use Smoking status: Former Types: Cigarettes Smokeless tobacco: Never Current Facility-Administered Medications Medication Dose Route Frequency Provider Last Rate Last Admin acetaminophen (TYLENOL) 650 mg/20.3 mL solution 650 mg 650 mg Oral [id number] Fish Conti MD 650 mg at 01/02/23 204 albuterol (PROVENTIL) 2.5 mg /3 mL (0.083 %) Nebu - Pyxis Override Pull albuterol (PROVENTIL) 2.5 mg /3 mL (0.083 %) nebulizer solution 2.5 mg 2.5 mg Inhalation RTQ6HR Jeyson Richard MD 2.5 mg at 01/03/23 1651 [Held by Provider] amLODIPine (NORVASC) tablet 10 mg 10 mg Oral DAILY Miller Cooper MD aspirin ([employer] ASPIRIN) chewable tablet 81 mg 81 mg Oral DAILY AT 0800 Natividad Hatch ACNP 81 mg at 01/03/23 1058 [Held by Provider] cetirizine (ZyrTEC) tablet 10 mg 10 mg Oral DAILY Miller Cooper MD cholecalciferol (VITAMIN D-3) tablet 1,000 Units 1,000 Units Oral DAILY Miller Cooper MD 1,000 Units at 01/03/23 1058 enoxaparin (LOVENOX) 40 mg/0.4 mL injection 40 mg 40 mg Subcutaneous Q12HR Natividad Hatch ACNP 40 mg at 01/03/23 1100 escitalopram (LEXAPRO) tablet 20 mg 20 mg Oral DAILY Natividad Hatch ACNP 20 mg at 01/03/23 1058 fenofibrate (TRICOR) tablet 145 mg 145 mg Oral WITH BREAKFAST Miller Cooper MD 145 mg at 01/03/23 1058 furosemide in NS (LASIX) 160 mg/50 mL (3.2 mg/mL) infusion (premade) 15 mg/hr Intravenous CONTINUOUS Brittany Vazquez MD 4.7 mL/hr at 01/03/23 1405 15 mg/hr at 01/03/23 1405 gabapentin (NEURONTIN) capsule 100 mg 100 mg Oral QHS Miller Cooper MD 100 mg at 01/02/237 [Held by Provider] hydroCHLOROthiazide (HYDRODIURIL) tablet 25 mg 25 mg Oral DAILY Miller Cooper MD lidocaine (LIDODERM) 5 % patch 1 Patch 1 Patch Transdermal DAILY Miller Cooper MD 1 Patch at 01/03/231057 [Held by Provider] losartan (COZAAR) tablet 100 mg 100 mg Oral DAILY Miller Cooper MD melatonin tablet Tab 5 mg 5 mg Oral QHS Ko Pimentel DO 5 mg at 01/02/232045 ondansetron (ZOFRAN) injection 4 mg 4 mg Intravenous [id number] Yvrose Thomas MD 4 mg at 01/02/232044 [Held by Provider] spironolactone (ALDACTONE) tablet 25 mg 25 mg Oral DAILY Miller Cooper MD [Held by Provider] tiotropium (SPIRIVA) 18 mcg per inhalation capsule 1 Capsule 1 Capsule Inhalation RTDAILY Miller Cooper MD Weight: 120.4 kg Allergies Allergen Reactions Amoxicillin Mild diarrhea Atorvastatin Joint pain Clavulanic Acid diarrhea Hydrocodone Bad reaction Pravachol [Pravastatin] rash Tetracycline swelling Vitals (past 24 H): Patient Vitals for the past 24 hrs: BP Temp Pulse Resp SpO2 Weight 01/03/23 1557 126/75 36.9 ??C (98.4 ??F) 95 20 96 % -- 01/03/23 1149 (!) 157/86 36.8 ??C (98.3 ??F) 93 (!) 28 94 % -- 01/03/23 0800 (!) 147/92 36.6 ??C (97.9 ??F) 91 17 94 % -- 01/03/23 0600 -- 36.3 ??C (97.3 ??F) -- 18 -- 120.4 kg 01/03/23 0500 (!) 154/80 -- 81 -- 95 % -- 01/03/23 0400 -- -- 85 -- 91 % -- 01/03/23 0000 -- 36.3 ??C (97.3 ??F) 94 17 97 % -- 01/02/23 2000 125/71 36.4 ??C (97.5 ??F) 98 18 93 % -- PVR: Lab (past 36 H): Results for orders placed or performed during the hospital encounter of 12/28/22 (from the past 36 hour(s)) BASIC METABOLIC PANEL Collection Time: 01/02/23 5:32 AM Test Value Low-High BUN 78 (H) 8 - 26 mg/dL Sodium 133 (L) 136 - 145 mEq/L Potassium 4.2 3.5 - 4.5 mEq/L Chloride 100 98 - 107 mEq/L CO2 20 (L) 23 - 31 mEq/L Anion Gap 13 (H) 4 - 12 mEq/L Glucose 136 (H) 70 - 105 mg/dL Creatinine 1.99 (H) 0.72 - 1.25 mg/dL Glomerular Filtration Rate 34 (L) >=59 mL/Min/1.73 m2 Calcium 8.7 8.4 - 10.2 mg/dL Osmo (Calc'd) 304 mOsm/kg Bun:Creat Ratio 39.20 MAGNESIUM Collection Time: 01/02/23 5:32 AM Test Value Low-High Magnesium 2.1 1.6 - 2.6 mg/dL PHOSPHORUS Collection Time: 01/02/23 5:32 AM Test Value Low-High Phosphorus 4.9 (H) 2.3 - 4.7 mg/dL BASIC METABOLIC PANEL Collection Time: 01/02/23 4:44 PM Test Value Low-High BUN 82 (H) 8 - 26 mg/dL Sodium 132 (L) 136 - 145 mEq/L Potassium 4.4 3.5 - 4.5 mEq/L Chloride 99 98 - 107 mEq/L CO2 21 (L) 23 - 31 mEq/L Anion Gap 12 4 - 12 mEq/L Glucose 148 (H) 70 - 105 mg/dL Creatinine 2.04 (H) 0.72 - 1.25 mg/dL Glomerular Filtration Rate 33 (L) >=59 mL/Min/1.73 m2 Calcium 8.8 8.4 - 10.2 mg/dL Osmo (Calc'd) 304 mOsm/kg Bun:Creat Ratio 40.20 MAGNESIUM Collection Time: 01/02/23 4:44 PM Test Value Low-High Magnesium 2.2 1.6 - 2.6 mg/dL PHOSPHORUS Collection Time: 01/02/23 4:44 PM Test Value Low-High Phosphorus 4.7 2.3 - 4.7 mg/dL TROPONIN I Collection Time: 01/03/23 12:38 AM Test Value Low-High Troponin I 12.26 (HH) <=0.03 ng/mL BASIC METABOLIC PANEL Collection Time: 01/03/23 5:45 AM Test Value Low-High BUN 84 (H) 8 - 26 mg/dL Sodium 129 (L) 136 - 145 mEq/L Potassium 4.3 3.5 - 4.5 mEq/L Chloride 97 (L) 98 - 107 mEq/L CO2 22 (L) 23 - 31 mEq/L Anion Gap 10 4 - 12 mEq/L Glucose 143 (H) 70 - 105 mg/dL Creatinine 2.26 (H) 0.72 - 1.25 mg/dL Glomerular Filtration Rate 29 (L) >=59 mL/Min/1.73 m2 Calcium 8.6 8.4 - 10.2 mg/dL Osmo (Calc'd) 299 mOsm/kg Bun:Creat Ratio 37.17 MAGNESIUM Collection Time: 01/03/23 5:45 AM Test Value Low-High Magnesium 2.2 1.6 - 2.6 mg/dL PHOSPHORUS Collection Time: 01/03/23 5:45 AM Test Value Low-High Phosphorus 5.1 (H) 2.3 - 4.7 mg/dL S. PNEUMONIAE AG,URINE Collection Time: 01/03/23 11:50 AM Specimen: Urine Voided Test Value Low-High S pneumoniae Antigen Negative Negative BLOOD GAS, ARTERIAL Collection Time: 01/03/23 12:45 PM Test Value Low-High pH, Arterial 7.41 7.37 - 7.47 PCO2, Arterial 34 31 - 42 mm Hg PO2, Arterial 87 80 - 90 mm Hg Bicarbonate (HCO3), Arterial 22 20 - 25 mmol/L O2 Saturation, Arterial 98 (H) 94 - 97 % Base Excess, Arterial -3.0 -3.0 - 3.0 mmol/L a/A Ratio 0.13 O2 Therapy, Liters (FIO2 L) 5 L O2 Therapy, Percent (FIO2 %) 97 % LACTIC ACID Collection Time: 01/03/23 12:45 PM Test Value Low-High Lactic Acid 1.5 0.5 - 2.0 mmol/L EKG (past 36 H): Results for orders placed or performed during the hospital encounter of 12/28/22 (from the past 36 hour(s)) EKG 12 LEAD Collection Time: 01/02/23 9:01 PM Test Value Low-High EKG Text INTERFACED DOCUMENTS - [facility] - ABNORMAL ECG - Sinus rhythm normal P axis, V-rate 50-99 Left bundle branch block QRSd>120, broad/notched R ST elevation secondary to IVCD Multiple VCG criteria Reading Physician [id number]&Anam&Kolasa&W Heart Rate 96 P-R Interval 197 P [place] 97 QRS Duration 142 QT Internal 394 QTcB 499 QRS [place] 14 I-40 [place] 51 T-40 [place] -47 T Wave [place] [address] [place] 221 Radiology (past 36 H): Results for orders placed or performed during the hospital encounter of 12/28/22 (from the past 72 hour(s)) XRAY CHEST 1 VIEW Collection Time: 01/01/23 8:04 AM Narrative History: Shortness of breath. Comparison: Chest radiograph performed on 12/28/2022. Chest CT performed on 12/30/2022. Technique: Portable AP chest radiograph. Impression Findings/impression: Progressive heterogeneous right upper lobe airspace opacity, likely pneumonia with differential to include asymmetric pulmonary edema. No other interval changes. Stable cardiomegaly and pulmonary vascular congestion. No large pleural effusions. Reading Doctor: Ean Berumen Electronic Signature by: Ean Berumen VAT US GUIDED PERIPHERAL IV PLACEMENT Collection Time: 01/01/23 11:55 PM Narrative Impression: The Peripheral IV line was placed by the Vascular Access Team (VAT). Please see progress notes for full report. XRAY CHEST 1 VIEW Collection Time: 01/03/23 10:09 AM Narrative Exam: Single view of the chest. Date of exam: 01/03/2023 at 1006. Indications: Hypoxia Comparison: 01/01/2023. Impression Findings and impression: Stable bilateral pulmonary opacities. Stable small bilateral pleural effusions. No pneumothorax. Stable enlargement of the cardiac silhouette. Reading Doctor: Skylar Robbins Electronic Signature by: Skylar Robbins Physical Exam: GEN: A&O x 4, NAD NEURO: No focal deficits, normal speech, CN II-XII grossly intact. HEENT: oral mucosa pink and moist. CV: RRR, cap refill < 2 sec., skin pink, warm, dry. Pulm: respirations labored, speaking short sentences. ABD: NT/ND, no rebound. : Bruno in place, yellow urine. No CVA tenderness. EXT: MAEW, (1+) pitting edema. Assessment and Plan: - 77 y/o male admitted with cardiac issues. - Likely has BPH based on history, never saw a urologist, lives in [place] - Bruno catheter was not fully inserted, likely in prostatic urethra. I was able to advance it to the hub with some resistance and there was return of some clear, yellow urine. No hematuria. Balloon was re-inflated and secured to drainage. - Cr 2.04->2.26, some FILIBERTO, ? Amount of urine production at present as BUN > 80 indicative of a pre-renal cause. - Continue to monitor UOP. - If bruno needs to be replaced, recommend to use coude catheter. - No additional urologic intervention at present, please re-contact with any concerns. - Discussed with resident Physician at bedside. D/W Dr Nkechi Vieyra PA-C 01/03/2023 * Sparkle Georges, PENOLOGY TEACHER-BC - 01/02/2023 8:41 AM EDT Images from the original note were not included. Cardiothoracic Surgery TAVR Consult Patient name: Raghu Rosenthal : 1945 Age: 77yrs Admission Date: 12/28/2022 Length of Stay: 5 MR#: [id number] [facility]#: [id number] Primary Care Provider: Michael Mckenzie Md [facility] Referring Makeup Artist: Williams Yip MD Reason for Consult: severe aortic valve stenosis due to degenerative calcification of a bioprosthetic valve History of Present Illness: Raghu Rosenthal is a 77 year old male seen today for consideration of a Linda transcatheter based replacement. Patient was admitted 12/28/2022 after experiencing acute SOB including orthopnea and PND with intermittent peripheral edema. States he just felt tired for two weeksprior to his acute symptoms. Denies CP or chest pressure. Earlier last month had been admitted to [place] for TIA 12/06/2022; wearing ZioXT placed by PR in [place] after TIA symptoms (placed on patient 12/27/2022). Echocardiogram competed noted an EF of 50-55%, last 40-45% with Ao Mg 32 (bioprosthetic valve), trace MR. Aortic mean gradient with catheterization: 48. Patient with occluded SVG to OM (CABG x 2 , 09/02/2013) AVERY to LAD patent. PFT today with FEVI actual 1.22 with 42% predicted, DLCO 50% predicted. CTA completed 12/30/2022 noted emphysema and a RUL nodule measuring at 13 mm. 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 Echocardiogram: 12/28/2022 Left Ventricle:The left ventricular mass index is increased.There is mild concentric left ventricular hypertrophy.LVEDV 299 ml with BSA 2.4 m2 The ejection fraction measured by 2D BP MOD is41%.The LVejection fraction is severely decreased. Akinesis of the apex and periapical segments, anteroseptum with better motion of the LV base representing, until proven otherwise, LAD territory issues on a background of moderate aortic stenosis.There is no thrombus.LV diastolic function can not be accurately assessed.E/E' averaged >13 Left Atrium:The left atrial volume is mildly increased. Right Atrium:Right atrial size is normal. Right Ventricle:The right ventricular systolic function is normal. Aortic Valve:Focal calcification.The aortic valve is not well visualized.The peak aortic valve velocity 385 cm/s.Aortic mean pressure gradient= 32 mmHg. The aortic valve velocity ratio was calculated at 0.27. Mitral Valve:Both leaflets are pliable and mobile.There is trace mitral regurgitation. Tricuspid Valve:The tricuspid valve is not well visualized.There was insufficient TR detected to calculate RV systolic pressure. Pulmonic Valve:The pulmonic valve is not well visualized.Trace pulmonic valvular regurgitation. Arteries:The aortic root is normal size.There is aortic root sclerosis/calcification. Aortic arch not seen well. Venous:Severely dilated inferior vena cava. Pericardium/Pleura:There is no pericardial effusion. Cardiac Catherization: 12/28/2022 Findings: LV = LVEDP is 30 mmHg. LM = distal left main has a 60% stenosis and trifurcates into an LAD, ramus and circumflex. LAD = proximal LAD is completely occluded and fills via AVERY to LAD. LCX =Circumflex is a codominant vessel that gives off small OM1 and a medium caliber OM 2 which hasminor irregularities and gives off a small L PDA. RCA = RCA is a medium caliber, codominant vessel that gives off a medium caliber PDA. It has diffuse 50 to 60% tandem stenosis. Ramus appears to have an SVG that is filling retrograde likely culprit for this VA. Proximal ramus has a 70% stenosis, AVERY to LAD is widely patent, distal to the AVERY touchdown there is a 50% stenosis in the LAD, it retrograde fills a medium caliber first diagonal. First diagonal has a proximal 70% stenosis. SVG to ramus is completely occluded. Right heart catheterization: RA:14 RV:55/10 PA: 54/23(35) PCWP:25 Pa sat:56% Ra Sat:56% Aortic valve gradient: 48mmHg mean grad CHELITA: 0.75cm2 Cardiac output was 5.5, cardiac index is 2.3 STS: isolated AVR Risk of Mortality:6.246% Renal Failure:13.836% Permanent Stroke:1.708% Prolonged Ventilation:22.794% DSW Infection:0.486% Reoperation:4.900% Morbidity or Mortality:32.135% Short Length of Stay:13.159% Long Length of Stay:19.772% NYHA: III Review of Systems: All other systems were reviewed and are otherwise negative except as stated below General: fatigue, weakness Cardiovascular: shortness of breath: at rest, on exertion, chest pain or pressure, paroxysmal nocturnal dyspnea, orthopnea, edema Past Medical History: Past Medical History: Diagnosis Date Coronary artery disease Diverticulitis Hyperlipidemia Hypertension Subdural hematoma (CMS/HCC) Past Surgical History: Past Surgical History: Procedure Laterality Date TULIO - CORONARY ARTERY BYPASS GRAFT TULIO - REPLACEMENT OF AORTIC VALVE porcine Family History: No family history on file. Social History: Social History Socioeconomic History Marital [...] on file Housing Stability: Not on file Allergies: Allergies Allergen Reactions Amoxicillin Mild diarrhea Atorvastatin Joint pain Clavulanic Acid diarrhea Hydrocodone Bad reaction Pravachol [Pravastatin] rash Tetracycline swelling Home Medications: Medications Prior to Admission Medication Sig Dispense Refill Last Dose amLODIPine (NORVASC) 10 mg Oral Tablet Take 1 Tablet by mouth daily. 12/27/2022 aspirin 81 mg Oral Tablet, Delayed Release (E.C.) Take 1 Tablet by mouth daily. 12/27/2022 cetirizine (ZyrTEC) 10 mg Oral Tablet 1 Tablet. chlorhexidine (PERIDEX) 0.12 % Mucous Membrane Mouthwash 15 mL by Swish & Spit route twice a day. 12/27/2022 cholecalciferol (VITAMIN D-3) 25 mcg (1,000 unit) Oral Tablet Take 1 Tablet by mouth daily. 12/27/2022 choline fenofibrate (TRILIPIX) 135 mg Oral Capsule, Delayed Release(E.C.) Take 1 Capsule by mouth daily. 12/27/2022 diclofenac sodium (VOLTAREN) 1 % Topical Gel gel APPLY 2 GRAMS TO UPPER AND 4 GRAMS TO LOWER EXTREMITIES TOPICALLY FOUR TIMES DAILY NEEDED FOR PAIN/INFLAMMATION. *DO NOT EXCEED 16 GRAMS DAILY TO ANY JOINT OF LOWER EXTREMITIES. DO NOT EXCEED 8 GRAMS DAILY TO ANY JOINT OF UPPER EXTREMITIES. DO NOTEXCEED TOTAL DOSE OF 32 GRAMS DAILY OVER ALL JOINTS. escitalopram (LEXAPRO) 20 mg Oral Tablet Take 1 Tablet by mouth daily. 12/27/2022 fluticasone propionate (FLONASE) 50 mcg/actuation Nasal [place], Suspension by Nasal route. hydroCHLOROthiazide (HYDRODIURIL) 25 mg Oral Tablet Take 1 Tablet by mouth daily. 12/27/2022 losartan (COZAAR) 100 mg Oral Tablet Take 1 Tablet by mouth daily. 12/27/2022 magnesium oxide (MAG-OX) 400 mg Oral Tablet Take 1 Tablet by mouth daily. 12/27/2022 rosuvastatin (CRESTOR) 20 mg Oral Tablet Take 1 Tablet by mouth at bedtime. 12/27/2022 spironolactone (ALDACTONE) 25 mg Oral Tablet Take 1 Tablet by mouth daily. 12/27/2022 tiotropium bromide (SPIRIVA RESPIMAT) 2.5 mcg/actuation Inhalation Mist INHALE 2 PUFFS BY MOUTH EVERY DAY FOR BREATHING Sodium Fluoride 5000 Plus 1.1 % Dental Cream SMARTSIG:Topical Physical Exam: BP 120/58 Pulse 95 Temp 36.4 ??C (97.5 ??F) Resp 17 Ht 1.753 m Wt 121.9 kg SpO2 95% BMI 39.68 kg/m?? General: The patient is awake, alert, and oriented x3. Conversational dyspnea noted after talking about 10 minutes. Currently on 4L NC. Skin: The patient has normal skin turgor. There are no rashes nor lesions noted. Head: The patient has moist mucous membranes and is normocephalic. Eyes: Pupils are equally reactive to accommodation bilaterally. The patient has anicteric sclerae. Lungs: Lungs with fine right sided basilar rales; no wheezes, or rhonchi. Heart: The patient has a regular rate and rhythm with a faint II/ systolic murmur. Abdomen: Abdomen is soft, nontender, nondistended with normal bowel sounds. There is no rebound, rigidity, or guarding. Extremities: Without clubbing, cyanosis. 1+pitting bilateral pedal to pretibial edema. Neurologically: Cranial nerves II through XII are grossly intact. Labs: Results for orders placed or performed during the hospital encounter of 12/28/22 (from the past 24 hour(s)) GLUCOSE, GLUCOMETER Collection Time: 01/01/23 12:18 PM Test Value Low-High Glucose 136 (H) 70 - 100 mg/dL TROPONIN I Collection Time: 01/01/23 12:37 PM Test Value Low-High Troponin I 15.04 (HH) <=0.03 ng/mL BASIC METABOLIC PANEL Collection Time: 01/01/23 11:52 PM Test Value Low-High BUN 77 (H) 8 - 26 mg/dL Sodium 134 (L) 136 - 145 mEq/L Potassium 4.2 3.5 - 4.5 mEq/L Chloride 100 98 - 107 mEq/L CO2 20 (L) 23 - 31 mEq/L Anion Gap 14 (H) 4 - 12 mEq/L Glucose 135 (H) 70 - 105 mg/dL Creatinine 1.94 (H) 0.72 - 1.25 mg/dL Glomerular Filtration Rate 35 (L) >=59 mL/Min/1.73 m2 Calcium 8.6 8.4 - 10.2 mg/dL Osmo (Calc'd) 306 mOsm/kg Bun:Creat Ratio 39.69 MAGNESIUM Collection Time: 01/01/23 11:52 PM Test Value Low-High Magnesium 2.0 1.6 - 2.6 mg/dL PHOSPHORUS Collection Time: 01/01/23 11:52 PM Test Value Low-High Phosphorus 4.8 (H) 2.3 - 4.7 mg/dL TROPONIN I Collection Time: 01/01/23 11:52 PM Test Value Low-High Troponin I 14.16 (HH) <=0.03 ng/mL BASIC METABOLIC PANEL Collection Time: 01/02/23 5:32 AM Test Value Low-High BUN 78 (H) 8 - 26 mg/dL Sodium 133 (L) 136 - 145 mEq/L Potassium 4.2 3.5 - 4.5 mEq/L Chloride 100 98 - 107 mEq/L CO2 20 (L) 23 - 31 mEq/L Anion Gap 13 (H) 4 - 12 mEq/L Glucose 136 (H) 70 - 105 mg/dL Creatinine 1.99 (H) 0.72 - 1.25 mg/dL Glomerular Filtration Rate 34 (L) >=59 mL/Min/1.73 m2 Calcium 8.7 8.4 - 10.2 mg/dL Osmo (Calc'd) 304 mOsm/kg Bun:Creat Ratio 39.20 MAGNESIUM Collection Time: 01/02/23 5:32 AM Test Value Low-High Magnesium 2.1 1.6 - 2.6 mg/dL PHOSPHORUS Collection Time: 01/02/23 5:32 AM Test Value Low-High Phosphorus 4.9 (H) 2.3 - 4.7 mg/dL Assessment: Hx CABG patent AVERY to LAD, occluded SVG to OM Bioprosthetic 25 mm Yani-Barnett Perimount Magna Ease 09/02/2013 Recently reduced EF, 40-45 with Ao MG via cath 48 Current supplement oxygen need at 4L HTN HLD Educational material regarding TAVR has been reviewed with patient and family at bedside.All questions answered. Plan: pending evaluation from procter regarding safety using a Linda TAVR. Patient with low coronary heights with an unprotected ramus, RCA and occluded LCx SVG. Electronically Signed By: Sparkle Georges PENOLOGY TEACHER 01/02/2023 Available via cortext only * Osmany Isidro MD - 12/28/2022 2:58 PM EDT Images from the original note were not included. [facility] CICU Consultation Note Osmany Isidro MD Plug Wirer Date: 12/28/22 Time: 3:01 PM Attending Physician: Ko Feliciano DO Date of Admission: 12/28/2022 1:45 PM Reason for Consult: NSTEMI Assessment: A 77 M with CABG (2 vessel, unknown grafts), ? s/p porcine AVR (10 years ago in [place]), HTN, HLD, obesity class III (BMI 41), presented from [place] with NSTEMI and shock. NSTEMI: Hx of CABG (2 vessel, unknown grafts). LELA score of [address] depression in lateral precordial leads and ST elevation in aVR. Trop 68. LDL 60. Shock, could be cardiogenic, on minimal vasopressor support Acute pulmonary edema (APO), likely 2/2 diastolic HF from ACS Vs. Myocardial stunning Cr elevation, possible FILIBERTO, no baseline Cr, 1.8 on admission, 1.6 on repeat here AGMA: Lactic acid is 1.6. Hx of HTN, HLD, obesity class III (BMI 41), Plan: - ASA 81 mg - Initiate high intensity statin - Initiate BB when HD allows - continue IV Heparin gtt - wean vasopressor support as tolerated - Nitro SL PRN for chest pain - Obtain stat echocardiogram - Keep NPO for Left heart catheterization. Case discussed with interventional fellow, Dr. Alston. Consents obtained. - Continuous cardiac monitoring and pulse oximetry - He will need to be diuresed for his APO (suspect his LVEDP will be elevated) - Obtain MR [facility] - Work up for AGMA per ICU team *Recommendations are staffed w/ attending, Dr. Ludwig Brief HPI: A 77 M with CABG (2 vessel, unknown grafts), ? s/p porcine AVR (10 years ago in [place]), HTN, HLD, obesity class III (BMI 41), presented from [place] with NSTEMI and shock. Patient p/w acute sudden onset substernal severe chest pain which lasted for 5- 10 mins. Associated with SOB and diaphoresis. Pain relieved by NTG and morphine. He was found to be hypotensive and lactic acidosis 2.1, resistant to 500cc of IVF, and IV norepinephrine was initiated. Also required BiPAPfor his respiratory distress. EKG showed ST depression in lateral precordial leads and ST elevation in aVR. Trop ~40. Cr 1.8 and Hb 10.3. Reports 1 month Hx of progressive fatigue. Possible TIA 2 weeks ago with staring and unresponsive episode. No residual neuro deficit. Subjective: Currently, chest pain free. MAP 84 on 4 . On 2L NC. Hemodynamics: Pulse: 82 BP: 122/65 INTAKE&OUTPUT: Intake/Output Summary (Last 24 hours) at 12/28/2022 1501 Last data filed at 12/28/2022 1400 Gross per 24 hour Intake -- Output 175 ml Net -175 ml Physical Exam: General: Obese, Comfortable, in no acute distress HEENT: Head atraumatic, normocephalic. Oral mucosa moist. Respiratory: Breath sounds equal, CTA. No wheezes or rhonci. Cardiac: Normal S1 S2, no murmurs. No significant JVD. Abdomen: Abdomen soft, non-tender, non-distended Extremities: 2+ BL pitting LE edema. Neuro: AOx3, no focal deficits Psych: Appropriate Review of Systems: Chest pain (-) , palpitations (-) , shortness of breath (-) , dizziness (-) , lightheadedness (-) 14-point review of systems was obtained and was negative except for as mentioned in HPI Last TTE: None Last LHC / RHC: Record not available Past Medical History: Past Medical History: Diagnosis Date Coronary artery disease Diverticulitis Hyperlipidemia Hypertension Subdural hematoma (CMS/HCC) Past Surgical History: Past Surgical History: Procedure Laterality Date TULIO - CORONARY ARTERY BYPASS GRAFT TULIO - REPLACEMENT OF AORTIC VALVE porcine Social History: Social History Socioeconomic History Marital status: Not on file Spouse name: Not on file Number of [...] Family History: No family history on file. Allergies: Allergies Allergen Reactions Amoxicillin Mild diarrhea Atorvastatin Joint pain Clavulanic Acid diarrhea Hydrocodone Bad reaction Pravachol [Pravastatin] rash Tetracycline swelling Current Medications: Current Facility-Administered Medications: [START ON 12/29/2022] aspirin ([employer] ASPIRIN) chewable tablet 81 mg, 81 mg, Oral, DAILY AT 0800, Natividad Hatch ACNP azithromycin (ZITHROMAX) 500 mg in sodium chloride 0.9 % 250 mL IVPB, 500 mg, Intravenous, Q24HR, Natividad Hatch ACNP, Stopped at 12/28/22 1549 cefTRIAXone (ROCEPHIN) 2 g in sodium chloride MBP 0.9% 100 mL IVPB, 2 g, Intravenous, Q24HR, Natividad Hatch ACNP [START ON 12/29/2022] escitalopram (LEXAPRO) tablet 20 mg, 20 mg, Oral, DAILY, Natividad Hatch ACNP heparin (porcine) (hepARIN) 1,000 unit/mL injection, , Intravenous, Heparin Titration Frequency, Natividad Hatch ACNP hepARIN(porcine) in 0.45% NaCl (CONCENTRATED hepARIN) 25,000 unit/250 mL infusion (premix), 7.8 Units/kg/hr, Intravenous, TITRATE, Natividad Hatch ACNP norepinephrine bitartrate-NS (LEVOPHED) 4 mg/250 mL (16 mcg/mL) infusion (premix), 2 mcg/min, Intravenous, CONTINUOUS, Natividad Hatch ACNP, Last Rate: 15 mL/hr at 12/28/22 1449, 4 mcg/min at 12/28/22 1449 Vitals / Physical Exam: Patient Vitals for the past 12 hrs: BP Pulse SpO2 Height Weight 12/28/22 1426 -- -- -- 1.753 m 127.1 kg 12/28/22 1400 122/65 82 95 % -- 121.7 kg Objective and Diagnostic Data: Pertinent labs: 12/28/2022: Hemoglobin 10.4 g/dL (L) No results found for requested labs within last 365 days 12/28/2022: Glucose 134 mg/dL (H) No results found for requested labs within last 365 days No results found for requested labs within last 365 days No results found for requested labs within last 365 days No results found for requested labs within last 365 days Osmany sIidro MD, A Cardiovascular Sciences Fellow [facility] [employer] [facility] Cortex preferred After-hours pager: [phone] Associated attestation - Edgard Ludwig DO - 12/30/2022 12:34 PM EDT I saw and examined the patient with Dr. Isidro on 12/28/2022. The case was discussed with the fellow and I agree with the assessment and plan as outlined above. Electronically signed Edgard Ludwig D.O., F.A.C.C. Clinical Professor Department of Cardiovascular Sciences [facility] documented in this encounter OR Notes * Procedure - Operative - Mary Valentin RN - 01/08/2023 12:41 PM EDT Cumulative Air Kerma: 3109 Dose Area Product: 90002.43 DAP Units: uGym2 Fluoro Time: 42.1 Contrast Volume: 160 cc * Procedure - Operative - Tania Hartley MD - 01/08/2023 12:08 PM EDT OPERATIVE REPORT DATE OF PROCEDURE: 01/08/2023 PREOPERATIVE DIAGNOSES: 1. Severe , Bioprosthetic AV Stenosis 2. Acute on Chronic Systolic and Diastolic Heart Failure 3. CKD POSTOPERATIVE DIAGNOSES: 1. Severe , Bioprosthetic AV Stenosis 2. Acute on Chronic Systolic and Diastolic Heart Failure 3. CKD PROCEDURE PERFORMED: 1. TransCatheter Aortic Valve Replacement, Leyhp-du-Dgoio, 26 Medtronic EvolutPro, via the Left Transfemoral Approach 2. Left Main Coronary Artery Protection 3. Post Deployment BAV, 23mm Z-Med Balloon 4. IVUS of Left Main SURGEON: Saundra Hartley MD MENTAL HEALTH PROFESSIONAL: Timothy Monroe MD ANESTHESIA: General PREOPERATIVE EJECTION FRACTION: 35% ESTIMATED BLOOD LOSS: 50mL. CARDIOPULMONARY BYPASS TIME: Not required. AORTIC CROSS CLAMP TIME: Not required DEVICES IMPLANTED: A 26 mm Medtronic Evolut Pro transcatheter aortic valve. INDICATIONS FOR PROCEDURE: The patient is an 77 -year-old patient with symptomatic and severe aortic stenosis in a 25mm Magna Ease AV. He has a history of AVR and CABG. The patient was evaluated by TAVR team and felt to be high candidate for transcatheter aortic valve in valve replacement. The patient is high risk for open surgical AVR DESCRIPTION OF FINDINGS: Post procedure with valve well seated and mean gradient 5 mmHg, CHELITA 2.0. Post procedure PVR's indicated good blood flow to both legs. DESCRIPTION OF PROCEDURE: The patient was correctly identified and taken to the hybrid operating room where she was placed on the operating room table in a supine position. Conscious sedation anesthesia was induced and appropriate monitoring lines were placed by the anesthesiologist. A timeout was performed. The patient was prepped from her chin to mid thighs and draped into a sterile field. Using the Star.me ultrasound both femoral arteries were located and cannulated with 6-Dutch sheaths. This was under fluoroscopic guidance. The right femoral vein was also located and entered using the GAP [place] ultrasound and then a 5-Dutch sheath was placed using fluoroscopic guidance. The temporary right ventricular pacing wire was placed through the right femoral venous sheath and pacing was confirmed in the right ventricle. The wire was then secured. A 5-Dutch pigtail catheter was placed in the right radial artery and passed into the non coronary sinus. The appropriate fluoroscopic angles were checked to remove paralax and adjustments were made. Two Perclose sutures were placed in the right femoral artery for later deployment at the end of the procedure. IVUS was done vial the left femoral artery sheath. Left Main Protection was also done via the left femoral artery sheath. The 16-Dutch dry seal sheath was placed over a wire under fluoroscopic guidance in the right femoral artery. Heparin was given to obtain an ACT greater than 250 seconds. An JR4 catheter was then placed to the clark's point aortic valve and the aortic valve was crossed with a soft tipped wire. Exchanges were made and the confida wire was then passed into the apex of the heart. Fluoroscopy was used to confirm correct positioning of the valve on the delivery system. The 16-Dutch sheath was removed as the Medtronic Evolut delivery system was then passed over the working wire. Under fluoroscopy, the valve was observed passing up the aorta and along the arch. The valve was then placed and positioned across the clark's point aortic valve. Pacing was initiated. The valve was deployed. The delivery system was removed. post deployment BAV was done with a 23 Z med balloon. Transthoracic echo showed no paravalvular leak and the valve was well seated. The protamine was given. The Perclose sutures were closed with good closure of the right femoral artery. The pigtail was removed and hemostasis was obtained with TR Band. Left femoral artery sheath was removed and bleeding controlled with a single StarClose. PVR's showed good wave forms on both legs. Digital pressure was held at the point of the right and left femoral venous sheath as it was removed. The incisions were closed and sterile dressings were applied. All needle, sponge and instrument counts were correct. The patient was taken to the cardiovascular intensive Care Unit in critical but stable condition. Post procedure echoHemodynamic Mean Gradient: 5 mmHG CHELITA: 2.0 cm2 Impression: Successful placement of a 26mm Medtronic Valve Saundra Hartley MD documented in this encounter Miscellaneous Notes * Jimmy Bolden Mary Chavez RN - 01/19/2023 1:35 PM EDT Images from the original note were not included. [id number] Torsemide Oral Tablet Brands: Demadex Uses This medicine is used for the following purposes: ?? high blood pressure ?? swelling Instructions This medicine may be taken with or without food. This medicine will work best if you take it at about the same time every day. Keep the medicine at room temperature. Avoid heat and direct light. This medicine will make you urinate more. If you have difficulty passing urine, please tell your doctor. It is important that you keep taking each dose of this medicine on time even if you are feeling well. If you forget to take a dose on time, take it as soon as you remember. If it is almost time for thenext dose, do not take the missed dose. Return to your normal schedule. Do not take 2 doses at one time. Drug interactions can change how medicines work or increase risk for side effects. Tell your healthcare providers about all medicines taken. Include prescription and qdpk-jgy-grbxqod medicines, vitamins, and herbal medicines. Speak with your doctor or pharmacist before starting or stopping any medicine. Tell your doctor if symptoms do not get better or if they get worse. Talk to your doctor before taking other medicines, including aspirins and ibuprofen containing products. Speak to your doctor about which medicines are safe to use while you are on this medicine. This medicine may affect your blood sugar levels. If you have diabetes, talk to your doctor before changing the dose of your diabetes medicine. Keep all appointments for medical exams and tests while on this medicine. Cautions Tell your doctor and pharmacist if you ever had an allergic reaction to a medicine. Do not use the medication any more than instructed. This medicine may cause dizziness or fainting, especially after exercising or in hot weather. Be very careful when standing or sitting up quickly. Your ability to stay alert or to react quickly may be impaired by this medicine. Do not drive or operate machinery until you know how this medicine will affect you. Please check with your doctor before drinking alcohol while on this medicine. Contact your doctor if you notice a change in the amount or darkening of your urine. Tell the doctor or pharmacist if you are , planning to be , or . Do not share this medicine with anyone who has not been prescribed this medicine. Side Effects The following is a list of some common side effects from this medicine. Please speak with your doctor about what you should do if you experience these or other side effects. ?? constipation ?? dizziness ?? headaches ?? low blood pressure ?? increased urinary frequency Call your doctor or get medical help right away if you notice any of these more serious side effects: ?? confusion ?? drowsiness or sedation ?? ear problems (ringing in the ears, hearing loss) ?? fainting ?? numbness or tingling in hands and feet ?? fast or irregular heart beats ?? muscle cramps ?? nausea and vomiting ?? unusual or unexplained tiredness or weakness ?? urinating less often ?? difficulty or discomfort urinating A few people may have an allergic reaction to this medicine. Symptoms can include difficulty breathing, skin rash, itching, swelling, or severe dizziness. If you notice any of these symptoms, seek medical help quickly. Extra Please speak with your doctor, nurse, or pharmacist if you have any questions about this medicine. [email or web address] IMPORTANT NOTE: This document tells you briefly how to take your medicine, but it does not tell youall there is to know about it. Your doctor or pharmacist may give you other documents about your medicine. Please talk to them if you have any questions. Always follow their advice. There is a more complete description of this medicine available in [place]. Scan this code on your smartphone or tablet or use the web address below. You can also ask your pharmacist for a printout. If you have any questions, please ask your pharmacist. The display and use of this drug information is subject to Terms of Use. Copyright(c) 2022 [employer]. ?? [employer]. All rights reserved. This information is not intended as a substitute for professional medical care. Always follow your healthcare professional's instructions. * [facility] - Mary Chavez RN - 01/19/2023 1:35 PM EDT Images from the original note were not included. [id number] Vitamin B1 (thiamine) Oral Tablet Uses For vitamin replacement. Instructions This medicine may be taken with or without food. Store at room temperature away from heat, light, and moisture. Do not keep in the bathroom. Tell your doctor and pharmacist about all your medicines. Include prescription and bhgq-kvj-wirukstulzwxrwrk, vitamins, and herbal medicines. Speak with your doctor or pharmacist before starting any other vitamins. Cautions Tell your doctor and pharmacist if you ever had an allergic reaction to a medicine. Do not use the medication any more than instructed. Side Effects This medicine usually has no side effects. A few people may have an allergic reaction to this medicine. Symptoms can include difficulty breathing, skin rash, itching, swelling, or severe dizziness. If you notice any of these symptoms, seek medical help quickly. Extra Please speak with your doctor, nurse, or pharmacist if you have any questions about this medicine. [email or web address] IMPORTANT NOTE: This document tells you briefly how to take your medicine, but it does not tell youall there is to know about it. Your doctor or pharmacist may give you other documents about your medicine. Please talk to them if you have any questions. Always follow their advice. There is a more complete description of this medicine available in [place]. Scan this code on your smartphone or tablet or use the web address below. You can also ask your pharmacist for a printout. If you have any questions, please ask your pharmacist. The display and use of this drug information is subject to Terms of Use. Copyright(c) 2022 [employer]. ?? 1338-5037 [employer]. All rights reserved. This information is not intended as a substitute for professional medical care. Always follow your healthcare professional's instructions. * [facility] - Mary Chavez RN - 01/19/2023 1:35 PM EDT Images from the original note were not included. [address] Polyethylene Glycol 3350 Powder For Oral Solution Brands: ClearLax, Ez2go Osmotic, Gavilax, GentleLax, HealthyLax, Miralax, PureLax Uses For bowel movement. Instructions Mix the medicine with 4-8 oz. (120-240 mL) of water or juice, then drink. Drink the medicine immediately after mixing. This medicine may be taken with or without food. Keep this medicine at room temperature. Protect from moisture and high humidity. Keep the medicine away from heat and light. Frequent or termite control service representative use of laxatives can cause your bowels to depend on them. Do not use laxatives for more than one week unless directed by your doctor. To reduce constipation, eat high fiber foods, drink plenty of water and exercise. Tell your doctor and pharmacist about all your medicines. Include prescription and ayst-ovw-nodbkxzvjllabhvx, vitamins, and herbal medicines. Tell your doctor if symptoms do not get better or if they get worse. Cautions Tell your doctor and pharmacist if you ever had an allergic reaction to a medicine. Do not use the medication any more than instructed. Tell the doctor or pharmacist if you are , planning to be , or . Do not start or stop any other medicines without first speaking to your doctor or pharmacist. Side Effects The following is a list of some common side effects from this medicine. Please speak with your doctor about what you should do if you experience these or other side effects. ?? bloating ?? diarrhea ?? excess gas ?? nausea ?? stomach upset or abdominal pain Call your doctor or get medical help right away if you notice any of these more serious side effects: ?? severe or persistent abdominal pain ?? severe, watery or bloody diarrhea ?? stomach pain ?? blood in stool A few people may have an allergic reaction to this medicine. Symptoms can include difficulty breathing, skin rash, itching, swelling, or severe dizziness. If you notice any of these symptoms, seek medical help quickly. Extra Please speak with your doctor, nurse, or pharmacist if you have any questions about this medicine. [email or web address] IMPORTANT NOTE: This document tells you briefly how to take your medicine, but it does not tell youall there is to know about it. Your doctor or pharmacist may give you other documents about your medicine. Please talk to them if you have any questions. Always follow their advice. There is a more complete description of this medicine available in [place]. Scan this code on your smartphone or tablet or use the web address below. You can also ask your pharmacist for a printout. If you have any questions, please ask your pharmacist. The display and use of this drug information is subject to Terms of Use. Copyright(c) 2022 [employer]. ?? 1163-8375 [employer]. All rights reserved. This information is not intended as a substitute for professional medical care. Always follow your healthcare professional's instructions. * [facility] [place] [facility] - 01/19/2023 1:35 PM EDT Images from the original note were not included. [id number] Oxycodone Oral Tablet 5 mg Uses For pain. Instructions Some brands of this medicine should be swallowed whole while other brands may be crushed. Ask your pharmacist how you should take your medicine. This medicine may be taken with or without food. Swallow with a full glass (8 oz) of water unless your doctor gives you different instructions. Store at room temperature away from heat, light, and moisture. Do not keep in the bathroom. Please ask your doctor, nurse, or pharmacist how to discard unused medicines safely. To reduce constipation, eat high fiber foods, drink plenty of water and exercise. Avoid grapefruit juice while on this medicine. Drug interactions can change how medicines work or increase risk for side effects. Tell your healthcare providers about all medicines taken. Include prescription and skhm-pko-ycplmev medicines, vitamins, and herbal medicines. Speak with your doctor or pharmacist before starting or stopping any medicine. Tell your doctor if symptoms do not get better or if they get worse. Parts of this medicine may come out in the stool. This is normal. Cautions This medicine has an opioid. Opioids help many people but may cause addiction, especially if used for a long time. The addiction risk is higher if you have a substance use disorder (overuse of or addiction to drugs or alcohol). Ask your doctor about the benefits and risks. Ask your doctor or pharmacist if you should have naloxone on hand to treat opioid overdose. Teach your family or household members about the signs of an opioid overdose and how to treat it. If you stop this medicine suddenly after using it for a long time, you may have withdrawal. Your doctor may slowly lower your dose before stopping it. Tell your doctor right away if you have symptoms, such as unusual sweating, watering eyes, runny nose, chills, diarrhea, yawning, muscle aches, restlessness, anxiety, trouble sleeping, or thoughts of suicide. Tell your doctor and pharmacist if you ever had an allergic reaction to a medicine. Do not use the medication any more than instructed. This medicine may cause dizziness or fainting, especially after exercising or in hot weather. Be very careful when standing or sitting up quickly. If possible, avoid using with alcohol, marijuana, or other medicines that can cause dizziness or drowsiness. These include allergy/cold products, muscle relaxers, sleep aids, and pain relievers. Your ability to stay alert or to react quickly may be impaired by this medicine. Do not drive or operate machinery until you know how this medicine will affect you. This medicine passes into breast milk. Ask your doctor before . This medicine can hurt a new baby in the womb. If you become while on this medicine, tell your doctor immediately. Your doctor may switch you to a different medicine. This medicine should be used with caution in patients with breathing difficulties. Call your doctor right away if you notice slow or shallow breathing. Do not share this medicine with anyone who has not been prescribed this medicine. Some patients have serious side effects from this medicine. Ask your pharmacist to show you the information from the Food and Drug Administration (FDA) and discuss it with you. Side Effects The following is a list of some common side effects from this medicine. Please speak with your doctor about what you should do if you experience these or other side effects. ?? decreased appetite ?? constipation ?? dizziness or drowsiness ?? lightheadedness ?? nausea and vomiting Call your doctor or get medical help right away if you notice any of these more serious side effects: ?? agitated feeling or trouble sleeping ?? decreased awareness or responsiveness ?? breathing interruption during sleep ?? shallow, irregular breathing ?? confusion ?? fainting ?? hallucinations (unusual thoughts, seeing or hearing things that are not real) ?? seizures ?? severe stomach or bowel pain ?? unusual or unexplained tiredness or weakness ?? difficulty or discomfort urinating ?? weight loss A few people may have an allergic reaction to this medicine. Symptoms can include difficulty breathing, skin rash, itching, swelling, or severe dizziness. If you notice any of these symptoms, seek medical help quickly. Extra Please speak with your doctor, nurse, or pharmacist if you have any questions about this medicine. [email or web address] IMPORTANT NOTE: This document tells you briefly how to take your medicine, but it does not tell youall there is to know about it. Your doctor or pharmacist may give you other documents about your medicine. Please talk to them if you have any questions. Always follow their advice. There is a more complete description of this medicine available in [place]. Scan this code on your smartphone or tablet or use the web address below. You can also ask your pharmacist for a printout. If you have any questions, please ask your pharmacist. The display and use of this drug information is subject to Terms of Use. Copyright(c) 2022 [employer]. ?? [employer]. All rights reserved. This information is not intended as a substitute for professional medical care. Always follow your healthcare professional's instructions. * [facility] [place] [facility] Mary Chavez RN - 01/19/2023 1:35 PM EDT Images from the original note were not included. [id number] Metoprolol Extended Release Oral Tablet Brands: Toprol Uses This medicine is used for the following purposes: ?? angina ?? heart attack ?? heart failure ?? high blood pressure ?? irregular heart beat ?? prevent migraine headaches ?? movement disorder Instructions Swallow the medicine without crushing or chewing it. This medicine may be taken with or without food. This medicine will work best if you take it at about the same time every day. Keep the medicine at room temperature. Avoid heat and direct light. It is important that you keep taking each dose of this medicine on time even if you are feeling well. If you forget to take a dose on time, take it as soon as you remember. If it is almost time for thenext dose, do not take the missed dose. Return to your normal schedule. Do not take 2 doses at one time. Drug interactions can change how medicines work or increase risk for side effects. Tell your healthcare providers about all medicines taken. Include prescription and qjll-ouf-llbelep medicines, vitamins, and herbal medicines. Speak with your doctor or pharmacist before starting or stopping any medicine. This medicine may cause low blood sugar. Eat regular meals and exercise as instructed by your doctor. Tell your doctor if you have symptoms of low blood sugar such as nausea, sweating, cold skin, fast heartbeat, hunger, and irritability. If you have diabetes, this medicine may hide some signs of low blood sugar, such as fast heartbeat.Check your blood sugar regularly and for other signs of low blood sugar. Cautions Tell your doctor and pharmacist if you ever had an allergic reaction to a medicine. Some patients with weak hearts may have worsening of symptoms. If you notice difficulty breathing, weight gain, or swelling of your legs or ankles, let your doctor know right away. Do not use the medication any more than instructed. This medicine may cause dizziness or fainting, especially after exercising or in hot weather. Be very careful when standing or sitting up quickly. Your ability to stay alert or to react quickly may be impaired by this medicine. Do not drive or operate machinery until you know how this medicine will affect you. Please check with your doctor before drinking alcohol while on this medicine. Tell the doctor or pharmacist if you are , planning to be , or . Do not share this medicine with anyone who has not been prescribed this medicine. Side Effects The following is a list of some common side effects from this medicine. Please speak with your doctor about what you should do if you experience these or other side effects. ?? diarrhea ?? dizziness or drowsiness ?? lack of energy and tiredness ?? slow heartbeat ?? low blood pressure Call your doctor or get medical help right away if you notice any of these more serious side effects: ?? confusion ?? depression or feeling sad ?? fainting ?? pale or blue skin, lips or fingernails ?? shortness of breath ?? unusual or unexplained tiredness or weakness ?? sudden or unexplained weight gain A few people may have an allergic reaction to this medicine. Symptoms can include difficulty breathing, skin rash, itching, swelling, or severe dizziness. If you notice any of these symptoms, seek medical help quickly. Extra Please speak with your doctor, nurse, or pharmacist if you have any questions about this medicine. [email or web address] IMPORTANT NOTE: This document tells you briefly how to take your medicine, but it does not tell youall there is to know about it. Your doctor or pharmacist may give you other documents about your medicine. Please talk to them if you have any questions. Always follow their advice. There is a more complete description of this medicine available in [place]. Scan this code on your smartphone or tablet or use the web address below. You can also ask your pharmacist for a printout. If you have any questions, please ask your pharmacist. The display and use of this drug information is subject to Terms of Use. Copyright(c) 2022 [employer]. ?? 4492-7115 [employer]. All rights reserved. This information is not intended as a substitute for professional medical care. Always follow your healthcare professional's instructions. * [facility], Mary Lua, RN - 01/19/2023 1:35 PM EDT Images from the original note were not included. [id number] Melatonin Oral Tablet Uses No information is available. Instructions This medicine may be taken with or without food. Take the medicine 1-2 hours before going to bed. Keep the medicine at room temperature. Avoid heat and direct light. If you take your medicine only at bedtime, do not take a missed dose in the morning. Tell your doctor and pharmacist about all your medicines. Include prescription and wblq-ceq-vplfyxvymfrmsmkc, vitamins, and herbal medicines. Cautions Tell your doctor and pharmacist if you ever had an allergic reaction to a medicine. Do not use the medication any more than instructed. If possible, avoid using with marijuana or other medicines that can cause dizziness or drowsiness. These include allergy/cold products, muscle relaxers, sleep aids, and pain relievers. Tell the doctor or pharmacist if you are , planning to be , or . Side Effects The following is a list of some common side effects from this medicine. Please speak with your doctor about what you should do if you experience these or other side effects. ?? dizziness or drowsiness ?? bad dreams ?? headaches ?? nausea ?? vivid dreams or nightmares Call your doctor or get medical help right away if you notice any of these more serious side effects: ?? depression or feeling sad A few people may have an allergic reaction to this medicine. Symptoms can include difficulty breathing, skin rash, itching, swelling, or severe dizziness. If you notice any of these symptoms, seek medical help quickly. Extra Please speak with your doctor, nurse, or pharmacist if you have any questions about this medicine. [email or web address] IMPORTANT NOTE: This document tells you briefly how to take your medicine, but it does not tell youall there is to know about it. Your doctor or pharmacist may give you other documents about your medicine. Please talk to them if you have any questions. Always follow their advice. There is a more complete description of this medicine available in [place]. Scan this code on your smartphone or tablet or use the web address below. You can also ask your pharmacist for a printout. If you have any questions, please ask your pharmacist. The display and use of this drug information is subject to Terms of Use. Copyright(c) 2022 [employer]. ?? [employer]. All rights reserved. This information is not intended as a substitute for professional medical care. Always follow your healthcare professional's instructions. * [facility] - Mary Chavez RN - 01/19/2023 1:35 PM EDT Images from the original note were not included. [id number] Gabapentin Oral Capsule Brands: Neurontin Uses This medicine is used for the following purposes: ?? menopausal symptoms ?? pain ?? restless leg syndrome ?? seizures ?? alcohol dependence ?? tremors Instructions Swallow the medicine without crushing or chewing it. This medicine may be taken with or without food. This medicine will work best if you take it at about the same time every day. Keep the medicine at room temperature. Avoid heat and direct light. Do not take any antacid or vitamins with magnesium, calcium, aluminum, or iron for 2 hours before and 2 hours after taking this medicine. It is important that you keep taking each dose of this medicine on time even if you are feeling well. If you forget to take a dose on time, take it as soon as you remember. If it is almost time for thenext dose, do not take the missed dose. Return to your normal schedule. Do not take 2 doses at one time. Tell your doctor and pharmacist about all your medicines. Include prescription and vafz-qhb-virprlqdakjwxoii, vitamins, and herbal medicines. Do not suddenly stop taking this medicine. Check with your doctor before stopping. Cautions Tell your doctor and pharmacist if you ever had an allergic reaction to a medicine. Do not use the medication any more than instructed. If possible, avoid using with alcohol, marijuana, or other medicines that can cause dizziness or drowsiness. These include allergy/cold products, muscle relaxers, sleep aids, and pain relievers. Your ability to stay alert or to react quickly may be impaired by this medicine. Do not drive or operate machinery until you know how this medicine will affect you. Family should check on the patient often. Call the doctor if patient becomes more depressed, has thoughts of suicide, or shows changes in behavior. Call the doctor if there are any signs of confusion or unusual changes in behavior. Tell the doctor or pharmacist if you are , planning to be , or . Do not start or stop any other medicines without first speaking to your doctor or pharmacist. This medicine should be used with caution in patients with breathing difficulties. Call your doctor right away if you notice slow or shallow breathing. Do not share this medicine with anyone who has not been prescribed this medicine. Some patients have serious side effects from this medicine. Ask your pharmacist to show you the information from the Food and Drug Administration (FDA) and discuss it with you. Side Effects The following is a list of some common side effects from this medicine. Please speak with your doctor about what you should do if you experience these or other side effects. ?? dizziness or drowsiness ?? lack of energy and tiredness Call your doctor or get medical help right away if you notice any of these more serious side effects: ?? shallow, irregular breathing ?? fever ?? swelling in the neck or throat A few people may have an allergic reaction to this medicine. Symptoms can include difficulty breathing, skin rash, itching, swelling, or severe dizziness. If you notice any of these symptoms, seek medical help quickly. Extra Please speak with your doctor, nurse, or pharmacist if you have any questions about this medicine. [email or web address] IMPORTANT NOTE: This document tells you briefly how to take your medicine, but it does not tell youall there is to know about it. Your doctor or pharmacist may give you other documents about your medicine. Please talk to them if you have any questions. Always follow their advice. There is a more complete description of this medicine available in [place]. Scan this code on your smartphone or tablet or use the web address below. You can also ask your pharmacist for a printout. If you have any questions, please ask your pharmacist. The display and use of this drug information is subject to Terms of Use. Copyright(c) 2022 [employer]. ?? [employer]. All rights reserved. This information is not intended as a substitute for professional medical care. Always follow your healthcare professional's instructions. * [facility] - Mary Chavez RN - 01/19/2023 1:35 PM EDT Images from the original note were not included. [id number] Folic Acid Oral Tablet Brands: Folacin Uses This medicine is used for the following purposes: ? vitamin deficiency Instructions This medicine may be taken with or without food. Keep the medicine at room temperature. Avoid heat and direct light. It is important that you keep taking each dose of this medicine on time even if you are feeling well. If you forget to take a dose on time, take it as soon as you remember. If it is almost time for thenext dose, do not take the missed dose. Return to your normal schedule. Do not take 2 doses at one time. Tell your doctor and pharmacist about all your medicines. Include prescription and ewby-dii-zkirmpehsrnqeafe, vitamins, and herbal medicines. Speak with your doctor or pharmacist before starting any other vitamins. Cautions Do not start or stop any other medicines without first speaking to your doctor or pharmacist. Do not share this medicine with anyone who has not been prescribed this medicine. Side Effects This medicine usually has no side effects. A few people may have an allergic reaction to this medicine. Symptoms can include difficulty breathing, skin rash, itching, swelling, or severe dizziness. If you notice any of these symptoms, seek medical help quickly. Extra Please speak with your doctor, nurse, or pharmacist if you have any questions about this medicine. [email or web address] IMPORTANT NOTE: This document tells you briefly how to take your medicine, but it does not tell youall there is to know about it. Your doctor or pharmacist may give you other documents about your medicine. Please talk to them if you have any questions. Always follow their advice. There is a more complete description of this medicine available in [place]. Scan this code on your smartphone or tablet or use the web address below. You can also ask your pharmacist for a printout. If you have any questions, please ask your pharmacist. The display and use of this drug information is subject to Terms of Use. Copyright(c) 2022 [employer]. ?? 8423-1103 [employer]. All rights reserved. This information is not intended as a substitute for professional medical care. Always follow your healthcare professional's instructions. * [facility] - Mary Chavez RN - 01/19/2023 1:34 PM EDT Images from the original note were not included. [id number] Ferrous Sulfate Delayed Release Oral Tablet Uses For anemia. Instructions Swallow the medicine without crushing or chewing it. Take the medicine with 250 mL (1 cup) of water. Take on empty stomach - 1 hour before or 2 hours after eating. Sit or stand upright for 10 minutes after taking the medicine. Do not lie down. After taking other medicines, wait at least 2 hours before taking this medicine. Do not take any other medicines for 2 hours after this medicine. You may take with food to prevent stomach upset. Keep the medicine at room temperature. Avoid heat and direct light. Drink plenty of water while on this medicine. Avoid dairy products, coffee, tea or products containing caffeine within 2 hours before or after taking this medicine. Do not take this medicine with antacids. It may take several weeks for this medicine to fully work. If you forget to take a dose on time, take it as soon as you remember. If it is almost time for thenext dose, do not take the missed dose. Return to your normal schedule. Do not take 2 doses at one time. Tell your doctor and pharmacist about all your medicines. Include prescription and ljbh-sdp-pgyoimryojhrjbab, vitamins, and herbal medicines. Speak with your doctor or pharmacist before starting any other vitamins. The foods you eat can change how well this medicine works. Tell your doctor about the types of foodyou normally eat. Ask your doctor for a list of foods that can affect this medicine. Do not significantly change the foods you normally eat while on this medicine. It is very important that you follow your doctor's instructions for all blood tests. This medicine may cause a positive result on some tests that check for blood in the stool. Please tell your doctor or nurse that you are taking this medicine before they perform these tests. Cautions Tell your doctor and pharmacist if you ever had an allergic reaction to a medicine. Do not use the medication any more than instructed. Tell the doctor or pharmacist if you are , planning to be , or . Do not start or stop any other medicines without first speaking to your doctor or pharmacist. Do not share this medicine with anyone who has not been prescribed this medicine. Side Effects The following is a list of some common side effects from this medicine. Please speak with your doctor about what you should do if you experience these or other side effects. ?? decreased appetite ?? constipation ?? stomach upset or abdominal pain ?? dark, tarry stool If you have any of the following side effects, you may be getting too much medicine. Please contactyour doctor to let them know about these side effects. ?? diarrhea A few people may have an allergic reaction to this medicine. Symptoms can include difficulty breathing, skin rash, itching, swelling, or severe dizziness. If you notice any of these symptoms, seek medical help quickly. Extra Please speak with your doctor, nurse, or pharmacist if you have any questions about this medicine. [email or web address] IMPORTANT NOTE: This document tells you briefly how to take your medicine, but it does not tell youall there is to know about it. Your doctor or pharmacist may give you other documents about your medicine. Please talk to them if you have any questions. Always follow their advice. There is a more complete description of this medicine available in [place]. Scan this code on your smartphone or tablet or use the web address below. You can also ask your pharmacist for a printout. If you have any questions, please ask your pharmacist. The display and use of this drug information is subject to Terms of Use. Copyright(c) 2022 [employer]. ?? 5020-8914 [employer]. All rights reserved. This information is not intended as a substitute for professional medical care. Always follow your healthcare professional's instructions. * [facility] [place] - Mary Chavez RN - 01/19/2023 1:34 PM EDT Images from the original note were not included. [id number] Clopidogrel Oral Tablet Brands: Plavix Uses This medicine is used for the following purposes: ?? prevent blood clots ?? prevent stroke ?? prevent heart attack Instructions This medicine may be taken with or without food. This medicine will work best if you take it at about the same time every day. Keep the medicine at room temperature. Avoid heat and direct light. It is important that you keep taking each dose of this medicine on time even if you are feeling well. If you forget to take a dose on time, take it as soon as you remember. If it is almost time for thenext dose, do not take the missed dose. Return to your normal schedule. Do not take 2 doses at one time. Drug interactions can change how medicines work or increase risk for side effects. Tell your healthcare providers about all medicines taken. Include prescription and ifwu-ibh-uoodncq medicines, vitamins, and herbal medicines. Speak with your doctor or pharmacist before starting or stopping any medicine. Cautions Tell your doctor and pharmacist if you ever had an allergic reaction to a medicine. Do not use the medication any more than instructed. Speak with your doctor before taking any medicine with aspirin. Contact your doctor if you notice a change in the amount or darkening of your urine. Tell the doctor or pharmacist if you are , planning to be , or . Call your doctor right away if you notice any unusual bleeding or bruising. Do not share this medicine with anyone who has not been prescribed this medicine. Some patients have serious side effects from this medicine. Ask your pharmacist to show you the information from the Food and Drug Administration (FDA) and discuss it with you. Side Effects The following is a list of some common side effects from this medicine. Please speak with your doctor about what you should do if you experience these or other side effects. ?? itching Call your doctor or get medical help right away if you notice any of these more serious side effects: ?? loss of balance ?? bleeding or bruising ?? chest pain ?? coughing up blood or vomit that looks like coffee grounds ?? fever ?? swelling in the neck or throat ?? severe or persistent headache ?? fast or irregular heart beats ?? pale or blue skin, lips or fingernails ?? bloody or dark, tarry stools ?? symptoms of stroke (such as one-sided weakness, slurred speech, confusion) ?? unusual or unexplained tiredness or weakness ?? blood in urine ?? yellowing of eyes or skin A few people may have an allergic reaction to this medicine. Symptoms can include difficulty breathing, skin rash, itching, swelling, or severe dizziness. If you notice any of these symptoms, seek medical help quickly. Extra Please speak with your doctor, nurse, or pharmacist if you have any questions about this medicine. [email or web address] IMPORTANT NOTE: This document tells you briefly how to take your medicine, but it does not tell youall there is to know about it. Your doctor or pharmacist may give you other documents about your medicine. Please talk to them if you have any questions. Always follow their advice. There is a more complete description of this medicine available in [place]. Scan this code on your smartphone or tablet or use the web address below. You can also ask your pharmacist for a printout. If you have any questions, please ask your pharmacist. The display and use of this drug information is subject to Terms of Use. Copyright(c) 2022 [employer]. ?? 9964-8353 [employer]. All rights reserved. This information is not intended as a substitute for professional medical care. Always follow your healthcare professional's instructions. * [facility] [place] - Mary Chavez RN - 01/19/2023 1:33 PM EDT Images from the original note were not included. [id number] Clopidogrel Oral Tablet Brands: Plavix Uses This medicine is used for the following purposes: ?? prevent blood clots ?? prevent stroke ?? prevent heart attack Instructions This medicine may be taken with or without food. This medicine will work best if you take it at about the same time every day. Keep the medicine at room temperature. Avoid heat and direct light. It is important that you keep taking each dose of this medicine on time even if you are feeling well. If you forget to take a dose on time, take it as soon as you remember. If it is almost time for thenext dose, do not take the missed dose. Return to your normal schedule. Do not take 2 doses at one time. Drug interactions can change how medicines work or increase risk for side effects. Tell your healthcare providers about all medicines taken. Include prescription and lyzv-pej-kvfllnd medicines, vitamins, and herbal medicines. Speak with your doctor or pharmacist before starting or stopping any medicine. Cautions Tell your doctor and pharmacist if you ever had an allergic reaction to a medicine. Do not use the medication any more than instructed. Speak with your doctor before taking any medicine with aspirin. Contact your doctor if you notice a change in the amount or darkening of your urine. Tell the doctor or pharmacist if you are , planning to be , or . Call your doctor right away if you notice any unusual bleeding or bruising. Do not share this medicine with anyone who has not been prescribed this medicine. Some patients have serious side effects from this medicine. Ask your pharmacist to show you the information from the Food and Drug Administration (FDA) and discuss it with you. Side Effects The following is a list of some common side effects from this medicine. Please speak with your doctor about what you should do if you experience these or other side effects. ?? itching Call your doctor or get medical help right away if you notice any of these more serious side effects: ?? loss of balance ?? bleeding or bruising ?? chest pain ?? coughing up blood or vomit that looks like coffee grounds ?? fever ?? swelling in the neck or throat ?? severe or persistent headache ?? fast or irregular heart beats ?? pale or blue skin, lips or fingernails ?? bloody or dark, tarry stools ?? symptoms of stroke (such as one-sided weakness, slurred speech, confusion) ?? unusual or unexplained tiredness or weakness ?? blood in urine ?? yellowing of eyes or skin A few people may have an allergic reaction to this medicine. Symptoms can include difficulty breathing, skin rash, itching, swelling, or severe dizziness. If you notice any of these symptoms, seek medical help quickly. Extra Please speak with your doctor, nurse, or pharmacist if you have any questions about this medicine. [email or web address] IMPORTANT NOTE: This document tells you briefly how to take your medicine, but it does not tell youall there is to know about it. Your doctor or pharmacist may give you other documents about your medicine. Please talk to them if you have any questions. Always follow their advice. There is a more complete description of this medicine available in [place]. Scan this code on your smartphone or tablet or use the web address below. You can also ask your pharmacist for a printout. If you have any questions, please ask your pharmacist. The display and use of this drug information is subject to Terms of Use. Copyright(c) 2022 [employer]. ?? [employer]. All rights reserved. This information is not intended as a substitute for professional medical care. Always follow your healthcare professional's instructions. * [facility] - Mary Chavez RN - 01/19/2023 1:33 PM EDT Images from the original note were not included. [id number] Clopidogrel Oral Tablet Brands: Plavix Uses This medicine is used for the following purposes: ?? prevent blood clots ?? prevent stroke ?? prevent heart attack Instructions This medicine may be taken with or without food. This medicine will work best if you take it at about the same time every day. Keep the medicine at room temperature. Avoid heat and direct light. It is important that you keep taking each dose of this medicine on time even if you are feeling well. If you forget to take a dose on time, take it as soon as you remember. If it is almost time for thenext dose, do not take the missed dose. Return to your normal schedule. Do not take 2 doses at one time. Drug interactions can change how medicines work or increase risk for side effects. Tell your healthcare providers about all medicines taken. Include prescription and nemo-uso-gxxsqcw medicines, vitamins, and herbal medicines. Speak with your doctor or pharmacist before starting or stopping any medicine. Cautions Tell your doctor and pharmacist if you ever had an allergic reaction to a medicine. Do not use the medication any more than instructed. Speak with your doctor before taking any medicine with aspirin. Contact your doctor if you notice a change in the amount or darkening of your urine. Tell the doctor or pharmacist if you are , planning to be , or . Call your doctor right away if you notice any unusual bleeding or bruising. Do not share this medicine with anyone who has not been prescribed this medicine. Some patients have serious side effects from this medicine. Ask your pharmacist to show you the information from the Food and Drug Administration (FDA) and discuss it with you. Side Effects The following is a list of some common side effects from this medicine. Please speak with your doctor about what you should do if you experience these or other side effects. ?? itching Call your doctor or get medical help right away if you notice any of these more serious side effects: ?? loss of balance ?? bleeding or bruising ?? chest pain ?? coughing up blood or vomit that looks like coffee grounds ?? fever ?? swelling in the neck or throat ?? severe or persistent headache ?? fast or irregular heart beats ?? pale or blue skin, lips or fingernails ?? bloody or dark, tarry stools ?? symptoms of stroke (such as one-sided weakness, slurred speech, confusion) ?? unusual or unexplained tiredness or weakness ?? blood in urine ?? yellowing of eyes or skin A few people may have an allergic reaction to this medicine. Symptoms can include difficulty breathing, skin rash, itching, swelling, or severe dizziness. If you notice any of these symptoms, seek medical help quickly. Extra Please speak with your doctor, nurse, or pharmacist if you have any questions about this medicine. [email or web address] IMPORTANT NOTE: This document tells you briefly how to take your medicine, but it does not tell youall there is to know about it. Your doctor or pharmacist may give you other documents about your medicine. Please talk to them if you have any questions. Always follow their advice. There is a more complete description of this medicine available in [place]. Scan this code on your smartphone or tablet or use the web address below. You can also ask your pharmacist for a printout. If you have any questions, please ask your pharmacist. The display and use of this drug information is subject to Terms of Use. Copyright(c) 2022 [employer]. ?? The [employer]. All rights reserved. This information is not intended as a substitute for professional medical care. Always follow your healthcare professional's instructions. * Hospital Course - Zara Capellan ACNP - 01/01/2023 6:25 AM EDT PROCEDURE: Procedure(s): REPLACEMENT, AORTIC VALVE, TRANSCATHETER, FEMORAL APPROACH (MEDTRONIC 26 ELSA); Intraoperative Echocardiogram Left Main Stent Placement Day of Surgery Surgeon(s): Tania Hartley MD Shah, Timothy Mcdermott MD LINES: RIJ Left brachial arterial line Bruno No PICC, CKD NEURO: 01/09: Improved cognition from yesterday, oriented to person, place, time but not situation. Not complaining of pain. Tylenol for pain. On yolette 100mg at night (home med) and trazodone scheduled for tonight (home med) 01/10 Trazodone held due to prolonged Qtc CARDIAC: (issues/plan) 01/08: Arrived from OR in NSR. Had 1 run of A-fib intra-op requiring a single bolus of Amio. On 0.02of Epi and 0.04 levo for SBP goal > 100 01/09: NSR. Off levo, BP improved with extubation. Weaning Epi 1cc/2hrs should finish around 0000 01/09 (overnight): bradycardia (no drop in BP), 8 run Vtach with spont resolution, Potassium replaced DRIPS: EPINEPHrine, Last Rate: 0.02 mcg/kg/min (01/08/23 1223) furosemide, Last Rate: 10 mg/hr (01/08/23 1330) nitroglycerin in D5W norepinephrine (LEVOPHED) weight-based continuous (CSICU only) infusion, Last Rate: 0.04 mcg/kg/min(01/08/23 1223) phenylephrine propofoL, Last Rate: 50 mcg/kg/min (01/08/23 1240) Core measures: 1. ASA 325 2. BB N/A 3. Statin apparently does not tolerate 4. Plavix (TAVR,OPCABG or unbypassed stents) 75mg 5. SHERMAN (EF <40%) no, FILIBERTO/CKD Current MEDS acetaminophen (TYLENOL) 650 mg/20.3 mL solution 1,000 mg FOLLOWED BY acetaminophen (TYLENOL) tablet 1,000 mg [START ON 01/09/2023] aspirin (ECOTRIN) EC tablet 325 mg aspirin tablet 325 mg calcium gluc in NaCL, iso-osm 1 gram/50 mL infusion (premix) 1 g cefUROXime (ZINACEF) 1.5 g in sodium chloride MBP 0.9% 100 mL IVPB EPINEPHrine (ADRENALIN) 10 mcg/mL in dextrose 5% in water (D5W) 250 mL CSICU ONLY infusion escitalopram (LEXAPRO) tablet 20 mg famotidine (PEPCID) injection 20 mg fenofibrate (TRICOR) tablet 145 mg fentaNYL (SUBLIMAZE) injection 25 mcg furosemide in NS (LASIX) 100 mg/100 mL (1 mg/mL) infusion (premade) gabapentin (NEURONTIN) capsule 100 mg insulin lispro (HumaLOG) 100 units/mL sensitivity factor injection lactated Ringer's infusion magnesium sulfate in SWI 2 gram/50 mL IVPB (premix) 2 g nitroglycerin in D5W CSICU ONLY infusion norepinephrine bitartrate-NS (LEVOPHED) 4 mg/250 mL (16 mcg/mL) infusion (premix) ondansetron (ZOFRAN) injection 4 mg phenylephrine (KARAN-SYNEPHRINE) 80 mcg/mL in dextrose 5% in water (D5W) 250 mL CSICU ONLY infusion potassium chloride in water 20 mEq/100 mL IVPB (premix) 20 mEq propofoL (DIPRIVAN) infusion (premix) sevelamer carbonate (RENVELA) packet 0.8 g sodium chloride 0.9 % flush 5 mL PULMONARY: Resp: 19 SpO2: 93 % Set Rate: 14 Minute Ventilation (L): 11.2 Pressure Support: 10 PEEP/Plow: 10 Actual PIP: 21 Mean Airway Pressure: 13 Inspiratory Time Sec: 1 Recent Labs 01/08/23 1134 01/08/23 1234 01/08/23 1333 PH 7.37 7.34* 7.39 PCO2 48* 50* 44* PO2 184* 84 74* BASEEXCESS 2.2 1.1 1.4 01/09: NC ABD/GI: Diet: Regular diet GI proph: Pantoprazole Bowel Regimen: colace FEN: 01/09: K 3.4, started on valentín, K not replaced Date 01/07/23 0700 - 01/08/23 0659 01/08/23 0700 - 01/09/23 0659 Shift 6358-2651 3337-4522 6423-9229 24 Hour Total 0790-5217 6175-9112 2548-5043 24 Hour Total INTAKE P.O. 400 200 600 P.O. 400 200 600 I.V. 53.4 55.4 62.4 171.2 1200 1200 Volume 53.4 55.4 62.4 171.2 Volume (mL) (sodium chloride 0.9 % infusion) 1000 1000 Volume (mL) (cefUROXime (ZINACEF) 1.5 g in sodium chloride MBP 0.9% 100 mL IVPB) 100 100 Volume (mL) (potassium chloride in water 20 mEq/100 mL IVPB (premix)) 100 100 Shift Total 453.4 255.4 62.4 771.2 1200 1200 OUTPUT Urine 750 1050 1400 3200 30 30 Urine Measured 750 1050 1400 3200 Output (ml) (Bruno 01/08/23 0839 2-Way Temp Sensing) 30 30 Shift Total 750 1050 1400 3200 30 30 NET -296.6 -794.6 -1337.6 -2428.8 1170 1170 Weight (kg) 122.6 122.6 124.6 124.6 124.6 124.6 124.6 124.6 Today's Weight: 124.6 kg Admission Weight: 121.7 kg Lasix: On Bumex gtt 2mg/hr 01/09: bumex gtt continues, still not negative with high BNP, metolazone given at 1630 this afternoon. 01/09 (overnight): BNP 2732 down from 3973, bumex drip continues at 2mg/hr Creatine: Creatinine Date Value Ref Range Status 01/08/2023 1.78 (H) 0.72 - 1.25 mg/dL Final 01/08/2023 1.69 (H) 0.72 - 1.25 mg/dL Final 01/07/2023 1.90 (H) 0.72 - 1.25 mg/dL Final 01/06/2023 2.06 (H) 0.72 - 1.25 mg/dL Final 01/06/2023 2.34 (H) 0.72 - 1.25 mg/dL Final 01/05/2023 2.03 (H) 0.72 - 1.25 mg/dL Final Bruno: ? (D/C POD 2 goal) 01/09: continues ENDOCRINE: HbA1c baseline: 12/28/2022: Hemoglobin A1C 5.0 % Endotool: SSI Recent Labs 01/08/23 1237 GLUCOSE POCT 168* Heme/ID: DVT proph: (goal evening of POD 1 CABG if plts >88145; POD 1 TAVR or OPCABG) 01/08/2023: PlateletCount 177 k/uL 01/08/2023: Hematocrit 28.2 % (L) 01/09: SQ Heparin Systemic anticoagulation: (mech valve, afib, etc) ABx or Cx: MS/skin: 01/09: OOB to chair and a few steps with PT Home meds: Medications Prior to Admission Medication amLODIPine (NORVASC) 10 mg Oral Tablet aspirin 81 mg Oral Tablet, Delayed Release (E.C.) cetirizine (ZyrTEC) 10 mg Oral Tablet chlorhexidine (PERIDEX) 0.12 % Mucous Membrane Mouthwash cholecalciferol (VITAMIN D-3) 25 mcg (1,000 unit) Oral Tablet choline fenofibrate (TRILIPIX) 135 mg Oral Capsule, Delayed Release(E.C.) diclofenac sodium (VOLTAREN) 1 % Topical Gel gel escitalopram (LEXAPRO) 20 mg Oral Tablet fluticasone propionate (FLONASE) 50 mcg/actuation Nasal [place], Suspension hydroCHLOROthiazide (HYDRODIURIL) 25 mg Oral Tablet losartan (COZAAR) 100 mg Oral Tablet magnesium oxide (MAG-OX) 400 mg Oral Tablet rosuvastatin (CRESTOR) 20 mg Oral Tablet spironolactone (ALDACTONE) 25 mg Oral Tablet tiotropium bromide (SPIRIVA RESPIMAT) 2.5 mcg/actuation Inhalation Mist amoxicillin (AMOXIL) 500 mg Oral Capsule EPINEPHrine (EPIPEN) 0.3 mg/0.3 mL (1:1,000) Injection Auto-Injector omeprazole (PriLOSEC) 20 mg Oral raNITIdine (ZANTAC) 150 mg Oral Tablet Sodium Fluoride 5000 Plus 1.1 % Dental Cream traZODone (DESYREL) 100 mg Oral Tablet Disposition: 01/09: Dr Hartley wanted to transfer back to CICU. Spoke with Dr. Carmen and would like to see if pt tolerates epi wean and transfer to IU. If need to go back on pressors they will accept tomorrow documented in this encounter Plan of Treatment Scheduled Referrals Name Type Priority Associated Diagnoses Orde r Schedule AMB REFERRAL TO CARDIOVASCULAR AND PULMONARY REHAB Referral Routine Ordered: 023 documented as of this encounter Procedures Procedure Name Priority Date/Time Associated Diagnosis Comments EKGSCAN 01/22/2023 11:15 AM EDT GLUCOSE, GLUCOMETER Routine 01/19/2023 1 1:56 AM EDT COVID-19 STAT STAT 01/19/2023 8:09 AM EDT GLUCOSE, GLUCOMETER Routine 01/19/2023 7 :34 AM EDT BASIC METABOLIC PANEL Routine 01/19/2023 4:37 AM EDT MAGNESIUM Routine 01/19/2023 4:37 AM EDT PHOSPHORUS Routine 01/19/2023 4:37 AM EDT GLUCOSE, GLUCOMETER Routine 01/18/2023 8 :56 PM EDT GLUCOSE, GLUCOMETER Routine 01/18/2023 6 :31 PM EDT GLUCOSE, GLUCOMETER Routine 01/18/2023 1 2:13 PM EDT GLUCOSE, GLUCOMETER Routine 01/18/2023 7 :37 AM EDT BASIC METABOLIC PANEL Routine 01/18/2023 4:57 AM EDT PHOSPHORUS Routine 01/18/2023 4:57 AM EDT MAGNESIUM Routine 01/18/2023 12:00 AM EDT GLUCOSE, GLUCOMETER Routine 01/17/2023 8 :53 PM EDT BASIC METABOLIC PANEL Timed 01/17/2023 5:37 PM EDT MAGNESIUM Timed 01/17/2023 5:37 PM EDT GLUCOSE, GLUCOMETER Routine 01/17/2023 4 :52 PM EDT GLUCOSE, GLUCOMETER Routine 01/17/2023 1 1:33 AM EDT GLUCOSE, GLUCOMETER Routine 01/17/2023 7 :34 AM EDT (PANEL)-CBC WITH DIFFERENTIAL Routine 01/17/2023 3:52 AM EDT CBC WITH DIFFERENTIAL Routine 01/17/2023 3:52 AM EDT BASIC METABOLIC PANEL Timed 01/17/2023 3:52 AM EDT MAGNESIUM Timed 01/17/2023 3:52 AM EDT PHOSPHORUS Routine 01/17/2023 3:52 AM EDT EKGSCAN 01/16/2023 11:42 PM EDT GLUCOSE, GLUCOMETER Routine 01/16/2023 9 :15 PM EDT GLUCOSE, GLUCOMETER Routine 01/16/2023 3 :42 PM EDT BASIC METABOLIC PANEL Timed 01/16/2023 3:10 PM EDT MAGNESIUM Timed 01/16/2023 3:10 PM EDT GLUCOSE, GLUCOMETER Routine 01/16/2023 1 1:39 AM EDT GLUCOSE, GLUCOMETER Routine 01/16/2023 7 :41 AM EDT (PANEL)-CBC WITH DIFFERENTIAL Routine 01/16/2023 3:55 AM EDT CBC WITH DIFFERENTIAL Routine 01/16/2023 3:55 AM EDT BNP Routine 01/16/2023 3:55 AM EDT BASIC METABOLIC PANEL Timed 01/16/2023 3:55 AM EDT MAGNESIUM Timed 01/16/2023 3:55 AM EDT PHOSPHORUS Routine 01/16/2023 3:55 AM EDT EKGSCAN 01/15/2023 11:12 PM EDT GLUCOSE, GLUCOMETER Routine 01/15/2023 8 :55 PM EDT GLUCOSE, GLUCOMETER Routine 01/15/2023 5 :26 PM EDT EKGSCAN 01/15/2023 4:12 PM EDT BASIC METABOLIC PANEL Timed 01/15/2023 4:03 PM EDT MAGNESIUM Timed 01/15/2023 4:03 PM EDT GLUCOSE, GLUCOMETER Routine 01/15/2023 1 1:34 AM EDT GLUCOSE, GLUCOMETER Routine 01/15/2023 7 :46 AM EDT (PANEL)-CBC WITH DIFFERENTIAL Routine 01/15/2023 4:17 AM EDT CBC WITH DIFFERENTIAL Routine 01/15/2023 4:17 AM EDT BASIC METABOLIC PANEL Timed 01/15/2023 4:17 AM EDT MAGNESIUM Timed 01/15/2023 4:17 AM EDT PHOSPHORUS Routine 01/15/2023 4:17 AM EDT EKGSCAN 01/15/2023 12:36 AM EDT EKGSCAN 01/14/2023 11:39 PM EDT EKGSCAN 01/14/2023 11:26 PM EDT GLUCOSE, GLUCOMETER Routine 01/14/2023 9 :07 PM EDT XRAY CHEST 1 VIEW STAT 01/14/2023 5:2 6 PM EDT GLUCOSE, GLUCOMETER Routine 01/14/2023 5 :10 PM EDT EKG 12 LEAD STAT 01/14/2023 4:50 PM EDT BASIC METABOLIC PANEL Timed 01/14/2023 4:45 PM EDT HEMATOCRIT Routine 01/14/2023 4:45 PM EDT HEMOGLOBIN Routine 01/14/2023 4:45 PM EDT MAGNESIUM Timed 01/14/2023 4:45 PM EDT VITAMIN B12 Routine 01/14/2023 4:45 PM EDT FOLATE Routine 01/14/2023 4:45 PM EDT EKGSCAN 01/14/2023 4:33 PM EDT EKGSCAN 01/14/2023 4:33 PM EDT TOTAL IRON BINDING CAPACITY (TIBC) Add-On 01/14/2023 1:31 PM EDT FERRITIN Add-On 01/14/2023 1:31 PM EDT HAPTOGLOBIN Routine 01/14/2023 1:31 PM EDT LD (LDH) Routine 01/14/2023 1:31 PM EDT GLUCOSE, GLUCOMETER Routine 01/14/2023 1 1:47 AM EDT EKGSCAN 01/14/2023 11:11 AM EDT GLUCOSE, GLUCOMETER Routine 01/14/2023 7 :37 AM EDT (PANEL)-CBC WITH DIFFERENTIAL Routine 01/14/2023 5:18 AM EDT CBC WITH DIFFERENTIAL Routine 01/14/2023 5:18 AM EDT BASIC METABOLIC PANEL Routine 01/14/2023 5:18 AM EDT MAGNESIUM Routine 01/14/2023 5:18 AM EDT HEPATIC FUNCTION PANEL Routine 01/14/2023 5:18 AM EDT PHOSPHORUS Routine 01/14/2023 5:18 AM EDT EKG 12 LEAD Routine 01/14/2023 5:10 AM EDT EKGSCAN 01/13/2023 11:40 PM EDT EKGSCAN 01/13/2023 11:11 PM EDT GLUCOSE, GLUCOMETER Routine 01/13/2023 9 :18 PM EDT GLUCOSE, GLUCOMETER Routine 01/13/2023 6 :07 PM EDT GLUCOSE, GLUCOMETER Routine 01/13/2023 1 1:06 AM EDT GLUCOSE, GLUCOMETER Routine 01/13/2023 7 :48 AM EDT EKG 12 LEAD Routine 01/13/2023 5:17 AM EDT (PANEL)-CBC WITH DIFFERENTIAL Routine 01/13/2023 4:16 AM EDT CBC WITH DIFFERENTIAL Routine 01/13/2023 4:16 AM EDT BASIC METABOLIC PANEL Routine 01/13/2023 4:16 AM EDT RETICULOCYTE PANEL Add-On 01/13/2023 4: 16 AM EDT MAGNESIUM Routine 01/13/2023 4:16 AM EDT PHOSPHORUS Routine 01/13/2023 4:16 AM EDT EKGSCAN 01/13/2023 2:22 AM EDT GLUCOSE, GLUCOMETER Routine 01/12/2023 9 :05 PM EDT XRAY CHEST 1 VIEW Routine 01/12/2023 7:5 0 PM EDT EKG 12 LEAD STAT 01/12/2023 6:38 PM EDT GLUCOSE, GLUCOMETER Routine 01/12/2023 6 :19 PM EDT GLUCOSE, GLUCOMETER Routine 01/12/2023 1 2:53 PM EDT URINALYSIS, COMPLETE Routine 01/12/2023 10:15 AM EDT (PANEL)-URINALYSIS, COMPLETE Routine 01/12/2023 10:15 AM EDT CULTURE, URINE Add-On 01/12/2023 10:15 AM EDT VAT US GUIDED PERIPHERAL IV PLACEMENT Routine 01/12/2023 9:55 AM EDT EKGSCAN 01/12/2023 9:08 AM EDT EKGSCAN 01/12/2023 9:08 AM EDT EKGSCAN 01/12/2023 9:08 AM EDT EKGSCAN 01/12/2023 9:08 AM EDT EKGSCAN 01/12/2023 9:04 AM EDT GLUCOSE, GLUCOMETER Routine 01/12/2023 7 :45 AM EDT (PANEL)-CBC WITH DIFFERENTIAL Routine 01/12/2023 3:09 AM EDT CBC WITH DIFFERENTIAL Routine 01/12/2023 3:09 AM EDT BASIC METABOLIC PANEL Routine 01/12/2023 3:09 AM EDT MAGNESIUM Routine 01/12/2023 3:09 AM EDT PHOSPHORUS Routine 01/12/2023 3:09 AM EDT GLUCOSE, GLUCOMETER Routine 01/11/2023 9 :31 PM EDT GLUCOSE, GLUCOMETER Routine 01/11/2023 5 :49 PM EDT GLUCOSE, GLUCOMETER Routine 01/11/2023 1 2:15 PM EDT GLUCOSE, GLUCOMETER Routine 01/11/2023 8 :19 AM EDT BASIC METABOLIC PANEL Routine 01/11/2023 4:03 AM EDT CBC WITH DIFF Routine 01/11/2023 4:03 AM EDT MAGNESIUM Routine 01/11/2023 4:03 AM EDT PHOSPHORUS Routine 01/11/2023 4:03 AM EDT GLUCOSE, GLUCOMETER Routine 01/11/2023 4 :02 AM EDT MAGNESIUM Routine 01/10/2023 10:41 PM EDT POTASSIUM Routine 01/10/2023 10:41 PM EDT GLUCOSE, GLUCOMETER Routine 01/10/2023 9 :39 PM EDT CULTURE, RESPIRATORY STAT 01/10/2023 5:52 PM EDT GLUCOSE, GLUCOMETER Routine 01/10/2023 5 :49 PM EDT BASIC METABOLIC PANEL Routine 01/10/2023 4:11 PM EDT GLUCOSE, GLUCOMETER Routine 01/10/2023 1 1:44 AM EDT EKG 12 LEAD Routine 01/10/2023 11:30 AM EDT GLUCOSE, GLUCOMETER Routine 01/10/2023 7 :41 AM EDT XRAY CHEST 1 VIEW Routine 01/10/2023 5:0 8 AM EDT EKGSCAN 01/10/2023 4:12 AM EDT CBC REFLEX LAB ONLY ORDER Routine 01/10/2023 3:11 AM EDT (PANEL)-CBC WITH DIFFERENTIAL Routine 01/10/2023 3:11 AM EDT CBC WITH DIFFERENTIAL Routine 01/10/2023 3:11 AM EDT GLUCOSE, GLUCOMETER Routine 01/10/2023 3 :11 AM EDT BNP Routine 01/10/2023 3:11 AM EDT BASIC METABOLIC PANEL Routine 01/10/2023 3:11 AM EDT MAGNESIUM Routine 01/10/2023 3:11 AM EDT PHOSPHORUS Routine 01/10/2023 3:11 AM EDT EKG 12 LEAD Routine 01/10/2023 12:35 AM EDT BASIC METABOLIC PANEL Routine 01/09/2023 11:21 PM EDT MAGNESIUM Routine 01/09/2023 11:21 PM EDT CALCIUM, IONIZED, WHOLE BLOOD Routine 01/09/2023 11:21 PM EDT PHOSPHORUS Routine 01/09/2023 11:21 PM EDT GLUCOSE, GLUCOMETER Routine 01/09/2023 9 :58 PM EDT GLUCOSE, GLUCOMETER Routine 01/09/2023 5 :44 PM EDT BASIC METABOLIC PANEL Routine 01/09/2023 2:45 PM EDT EKGSCAN 01/09/2023 11:22 AM EDT GLUCOSE, GLUCOMETER Routine 01/09/2023 1 1:16 AM EDT EKGSCAN 01/09/2023 9:48 AM EDT EKGSCAN 01/09/2023 9:37 AM EDT EKGSCAN 01/09/2023 9:30 AM EDT GLUCOSE, GLUCOMETER Routine 01/09/2023 7 :31 AM EDT GLUCOSE, GLUCOMETER Routine 01/09/2023 7 :04 AM EDT ECHO Routine 01/09/2023 6:36 AM EDT BNP Routine 01/09/2023 4:44 AM EDT XRAY CHEST 1 VIEW Routine 01/09/2023 4:3 6 AM EDT GLUCOSE, GLUCOMETER Routine 01/09/2023 3 :02 AM EDT (PANEL)-CBC WITH DIFFERENTIAL Routine 01/09/2023 2:19 AM EDT CBC WITH DIFFERENTIAL Routine 01/09/2023 2:19 AM EDT BASIC METABOLIC PANEL Routine 01/09/2023 2:19 AM EDT MAGNESIUM Routine 01/09/2023 2:19 AM EDT CALCIUM, IONIZED, WHOLE BLOOD Routine 01/09/2023 2:19 AM EDT PHOSPHORUS Add-On 01/09/2023 2:19 AM EDT EKG 12 LEAD Routine 01/09/2023 12:10 AM EDT GLUCOSE, GLUCOMETER Routine 01/08/2023 1 0:34 PM EDT EKGSCAN 01/08/2023 6:08 PM EDT GLUCOSE, GLUCOMETER Routine 01/08/2023 5 :21 PM EDT MAGNESIUM STAT 01/08/2023 5:21 PM EDT POTASSIUM STAT 01/08/2023 5:21 PM EDT BLOOD GAS, ARTERIAL Routine 01/08/2023 3 :18 PM EDT BLOOD GAS, ARTERIAL Routine 01/08/2023 1 :33 PM EDT XRAY CHEST 1 VIEW STAT 01/08/2023 1:0 9 PM EDT EKG 12 LEAD STAT 01/08/2023 12:41 PM EDT GLUCOSE, GLUCOMETER Routine 01/08/2023 1 2:37 PM EDT (PANEL)-CBC WITH DIFFERENTIAL STAT 01/08/2023 12:34 PM EDT CBC WITH DIFFERENTIAL STAT 01/08/2023 12:34 PM EDT BASIC METABOLIC PANEL STAT 01/08/2023 12:34 PM EDT MAGNESIUM STAT 01/08/2023 12:34 PM EDT HEPATIC FUNCTION PANEL Routine 01/08/2023 12:34 PM EDT BLOOD GAS, ARTERIAL Routine 01/08/2023 1 2:34 PM EDT CALCIUM, IONIZED, WHOLE BLOOD STAT 01/08/2023 12:34 PM EDT ACT (SCREEN) LOW RANGE Routine 01/08/2023 11:38 AM EDT ARTERIAL BLOOD GAS PLUS (POC) Routine 01/08/2023 11:34 AM EDT ACT (SCREEN) LOW RANGE Routine 01/08/2023 10:30 AM EDT ACT (SCREEN) LOW RANGE Routine 01/08/2023 10:05 AM EDT ARTERIAL BLOOD GAS PLUS (POC) Routine 01/08/2023 9:54 AM EDT PLACEMENT STENT 01/08/2023 7:35 AM EDT Aortic Stenosis Special Needs ICU/ HT 1.753m WT 120.4kg/ CONSCIOUS SEDATION4-14 1430RIGHT RADIAL PIGTAIL ,LEFT MAIN PROTECTION IVUS IMPLANTATION, AORTIC VALVE, TRANSCATHETER, FEMORAL APPROACH 01/08/2023 7:35 AM EDT Aortic Stenosis Special Needs ICU/ HT 1.753m WT 120.4kg/ CONSCIOUS SEDATION4-14 1430RIGHT RADIAL PIGTAIL ,LEFT MAIN PROTECTION IVUS ECHO Routine 01/08/2023 7:15 AM EDT RED BLOOD CELLS (SET-UP) (PATIENT WT > 30KG) STAT 01/08/2023 7:09 AM EDT (PANEL)-CBC WITH DIFFERENTIAL Routine 01/08/2023 4:39 AM EDT CBC WITH DIFFERENTIAL Routine 01/08/2023 4:39 AM EDT PT (PROTHROMBIN TIME) WITH INR Routine 01/08/2023 4:39 AM EDT BASIC METABOLIC PANEL Routine 01/08/2023 4:39 AM EDT MAGNESIUM Routine 01/08/2023 4:39 AM EDT BASIC METABOLIC PANEL Routine 01/07/2023 3:36 PM EDT TYPE & SCREEN Routine 01/07/2023 5:37 AM EDT (PANEL)-CBC WITH DIFFERENTIAL Routine 01/06/2023 11:35 PM EDT CBC WITH DIFFERENTIAL Routine 01/06/2023 11:35 PM EDT BASIC METABOLIC PANEL Routine 01/06/2023 11:35 PM EDT MAGNESIUM Routine 01/06/2023 11:35 PM EDT PHOSPHORUS Routine 01/06/2023 11:35 PM EDT VAT US GUIDED PERIPHERAL IV PLACEMENT Routine 01/06/2023 11:00 PM EDT POTASSIUM, WHOLE BLOOD Routine 01/06/2023 4:06 AM EDT BASIC METABOLIC PANEL Timed 01/06/2023 2:12 AM EDT MAGNESIUM Timed 01/06/2023 2:12 AM EDT HEPATIC FUNCTION PANEL Routine 01/06/2023 2:12 AM EDT PHOSPHORUS Timed 01/06/2023 2:12 AM EDT BASIC METABOLIC PANEL Timed 01/05/2023 10:36 PM EDT MAGNESIUM Timed 01/05/2023 10:36 PM EDT PHOSPHORUS Timed 01/05/2023 10:36 PM EDT PTT Routine 01/05/2023 5:49 AM EDT PT (PROTHROMBIN TIME) WITH INR Routine 01/05/2023 5:49 AM EDT BASIC METABOLIC PANEL Timed 01/05/2023 4:52 AM EDT MAGNESIUM Timed 01/05/2023 4:52 AM EDT PHOSPHORUS Timed 01/05/2023 4:52 AM EDT POTASSIUM Routine 01/04/2023 9:26 PM EDT MRSA ADMIT SCREEN Routine 01/04/2023 6:4 3 PM EDT BASIC METABOLIC PANEL Timed 01/04/2023 6:43 PM EDT MAGNESIUM Timed 01/04/2023 6:43 PM EDT PHOSPHORUS Timed 01/04/2023 6:43 PM EDT BASIC METABOLIC PANEL Timed 01/04/2023 5:48 AM EDT MAGNESIUM Timed 01/04/2023 5:48 AM EDT PHOSPHORUS Timed 01/04/2023 5:48 AM EDT BASIC METABOLIC PANEL Timed 01/03/2023 9:15 PM EDT MAGNESIUM Timed 01/03/2023 9:15 PM EDT PHOSPHORUS Timed 01/03/2023 9:15 PM EDT LACTIC ACID Timed 01/03/2023 12:45 PM EDT BLOOD GAS, ARTERIAL STAT 01/03/2023 1 2:45 PM EDT S. PNEUMONIAE AG,URINE Routine 01/03/2023 11:50 AM EDT LEGIONELLA ANTIGEN, URINE Routine 01/03/2023 11:50 AM EDT XRAY CHEST 1 VIEW Routine 01/03/2023 10: 09 AM EDT BASIC METABOLIC PANEL Timed 01/03/2023 5:45 AM EDT MAGNESIUM Timed 01/03/2023 5:45 AM EDT PHOSPHORUS Timed 01/03/2023 5:45 AM EDT TROPONIN I Timed 01/03/2023 12:38 AM EDT EKG 12 LEAD STAT 01/02/2023 9:01 PM EDT BASIC METABOLIC PANEL Timed 01/02/2023 4:44 PM EDT MAGNESIUM Timed 01/02/2023 4:44 PM EDT PHOSPHORUS Timed 01/02/2023 4:44 PM EDT BASIC METABOLIC PANEL Timed 01/02/2023 5:32 AM EDT MAGNESIUM Timed 01/02/2023 5:32 AM EDT PHOSPHORUS Timed 01/02/2023 5:32 AM EDT VAT US GUIDED PERIPHERAL IV PLACEMENT STAT 01/01/2023 11:55 PM EDT TROPONIN I Timed 01/01/2023 11:52 PM EDT BASIC METABOLIC PANEL Timed 01/01/2023 11:52 PM EDT MAGNESIUM Timed 01/01/2023 11:52 PM EDT PHOSPHORUS Timed 01/01/2023 11:52 PM EDT EKG 12 LEAD STAT 01/01/2023 11:40 PM EDT TROPONIN I Timed 01/01/2023 12:37 PM EDT GLUCOSE, GLUCOMETER Routine 01/01/2023 1 2:18 PM EDT GLUCOSE, GLUCOMETER Routine 01/01/2023 8 :36 AM EDT TROPONIN I Timed 01/01/2023 8:26 AM EDT EKGSCAN 01/01/2023 8:12 AM EDT XRAY CHEST 1 VIEW STAT 01/01/2023 8:0 4 AM EDT GLUCOSE, GLUCOMETER Routine 01/01/2023 7 :08 AM EDT TROPONIN I Timed 01/01/2023 5:49 AM EDT EKG 12 LEAD Routine 01/01/2023 5:17 AM EDT GLUCOSE, GLUCOMETER Routine 01/01/2023 4 :32 AM EDT (PANEL)-CBC WITH DIFFERENTIAL Routine 01/01/2023 3:58 AM EDT CBC WITH DIFFERENTIAL Routine 01/01/2023 3:58 AM EDT BNP Add-On 01/01/2023 3:58 AM EDT BASIC METABOLIC PANEL Routine 01/01/2023 3:58 AM EDT MAGNESIUM Routine 01/01/2023 3:58 AM EDT PHOSPHORUS Routine 01/01/2023 3:58 AM EDT BASIC METABOLIC PANEL Routine 12/31/2022 7:30 PM EDT BASIC METABOLIC PANEL Routine 12/31/2022 5:54 PM EDT MAGNESIUM Routine 12/31/2022 5:54 PM EDT PHOSPHORUS Routine 12/31/2022 5:54 PM EDT BASIC METABOLIC PANEL Routine 12/31/2022 4:08 PM EDT EKGSCAN 12/31/2022 12:21 PM EDT (PANEL)-CBC WITH DIFFERENTIAL Routine 12/31/2022 4:17 AM EDT MANUAL DIFFERENTIAL Routine 12/31/2022 4 :17 AM EDT CBC WITH DIFFERENTIAL Routine 12/31/2022 4:17 AM EDT BASIC METABOLIC PANEL Routine 12/31/2022 4:17 AM EDT MAGNESIUM Routine 12/31/2022 4:17 AM EDT PHOSPHORUS Routine 12/31/2022 4:17 AM EDT BASIC METABOLIC PANEL Routine 12/30/2022 10:54 AM EDT CTA ABDOMEN PELVIS W & W/O IV CONTRAST Routine 12/30/2022 10:13 AM EDT CTA CHEST W & W/O IV CONTRAST Routine 12/30/2022 10:13 AM EDT EKGSCAN 12/30/2022 4:53 AM EDT GLUCOSE, GLUCOMETER Routine 12/29/2022 1 0:09 PM EDT EKG 12 LEAD Routine 12/29/2022 10:18 AM EDT LACTIC ACID Timed 12/29/2022 9:21 AM EDT BLOOD GAS, ARTERIAL STAT 12/29/2022 9 :21 AM EDT CBC REFLEX LAB ONLY ORDER Routine 12/29/2022 5:38 AM EDT BASIC METABOLIC PANEL Routine 12/29/2022 5:38 AM EDT CBC WITH DIFF Routine 12/29/2022 5:38 AM EDT MAGNESIUM Routine 12/29/2022 5:38 AM EDT PHOSPHORUS Routine 12/29/2022 5:38 AM EDT TROPONIN I Timed 12/28/2022 11:24 PM EDT EKGSCAN 12/28/2022 11:19 PM EDT URINALYSIS, COMPLETE Routine 12/28/2022 6:00 PM EDT (PANEL)-URINALYSIS, COMPLETE Routine 12/28/2022 6:00 PM EDT CULTURE, BLOOD Timed 12/28/2022 6:00 PM EDT CULTURE, BLOOD Timed 12/28/2022 6:00 PM EDT TROPONIN I Timed 12/28/2022 6:00 PM EDT LACTIC ACID Timed 12/28/2022 6:00 PM EDT EKG 12 LEAD Routine 12/28/2022 5:53 PM EDT OXYHEMOGLOBIN-MIXED VENOUS-POC Routine 12/28/2022 3:56 PM EDT OXYHEMOGLOBIN-MIXED VENOUS-POC Routine 12/28/2022 3:55 PM EDT OXYHEMOGLOBIN-MIXED VENOUS-POC Routine 12/28/2022 3:53 PM EDT ECHO STAT 12/28/2022 2:58 PM EDT EKG 12 LEAD STAT 12/28/2022 2:24 PM EDT XRAY CHEST 1 VIEW STAT 12/28/2022 2:1 8 PM EDT TSH WITH REFLEX TO FREE T4 Routine 12/28/2022 2:17 PM EDT (PANEL)-CBC WITH DIFFERENTIAL Routine 12/28/2022 2:17 PM EDT CBC WITH DIFFERENTIAL Routine 12/28/2022 2:17 PM EDT PTT STAT 12/28/2022 2:17 PM EDT PT (PROTHROMBIN TIME) WITH INR Routine 12/28/2022 2:17 PM EDT BNP Routine 12/28/2022 2:17 PM EDT TROPONIN I Routine 12/28/2022 2:17 PM EDT LIPID PANEL Routine 12/28/2022 2:17 PM EDT HEMOGLOBIN A1C (GLYCOSYLATED) Routine 12/28/2022 2:17 PM EDT MAGNESIUM Routine 12/28/2022 2:17 PM EDT LACTIC ACID Timed 12/28/2022 2:17 PM EDT PHOSPHORUS Routine 12/28/2022 2:17 PM EDT COMPREHENSIVE METABOLIC PANEL Routine 12/28/2022 2:17 PM EDT GLUCOSE, GLUCOMETER Routine 12/28/2022 2 :03 PM EDT documented in this encounter Results * EKGSCAN (01/22/2023 11:15 AM EDT) Only the most recent of28 resultswithin the time period is included. 01/22/2023 11:1 5 AM EDT 01/22/2023 11:15 AM EDT Doctor Unassigned MD EKG ORDERABLES * (ABNORMAL) GLUCOSE, GLUCOMETER (01/19/2023 11:56 AM EDT) Only the most recent of55 resultswithin the time period is included. Glucose 112(H) 70 - 100 mg/dL 01/19/2023 11:57 AM EDT [facility] POC TEST Blood BLOOD / Unknown 01/19/2023 1 1:56 AM EDT 01/19/2023 11:57 AM EDT Abdoulaye Canales MD LAB POC UNSOLICIT ED ORDERABLES Performing Organization Address [facility] Co de Phone Number [facility] POC TEST [address] [place] [address] * COVID-19 STAT (01/19/2023 8:09 AM EDT) SARS-Coronavir us-2 PCR Negative Negative 01/19/2023 8:49 AM EDT [facility] ([facility] BY [facility] [employer] [facility]) Swab NASOPHARYNGEAL STRUCTURE / Unknown Non-blood Collection / Unknown 01/19/2023 8:09 AM EDT 01/19/2023 8:12 AM EDT Narrative [facility] ([facility] [employer]) - 01/19/2023 8:49 AM EDT Negative results do not preclude [...] not for any other viruses or pathogens. Gaurav Lin MD LAB MICROBIOLOGY O RDERABLES Performing Organization Address City/[facility]/ZIP Co de Phone Number [facility] ([facility] [employer] [facility] [employer] [facility]) [address] [place] [address] * PHOSPHORUS (01/19/2023 4:37 AM EDT) Only the most recent of28 resultswithin the time period is included. Phosphorus 2.6 2.3 - 4.7 mg/dL 01/19/2023 5:48 AM EDT [facility] ([facility] [employer] [facility] [employer] [facility]) Blood BLOOD / Unknown Venipuncture / Unknown 01/19/2023 4:37 AM EDT 01/19/2023 5:09 AM EDT Williams Murray DO LAB BLOOD ORDERABLES Performing Organization Address City/[facility]/ZIP Co de Phone Number [facility] ([facility] [employer] [facility] [employer] [facility]) [address] [place] [address] * MAGNESIUM (01/19/2023 4:37 AM EDT) Only the most recent of36 resultswithin the time period is included. Magnesium 1.7 1.6 - 2.6 mg/dL 01/19/2023 5:48 AM EDT [facility] ([facility] [employer] [facility] [employer] [facility]) Blood BLOOD / Unknown Venipuncture / Unknown 01/19/2023 4:37 AM EDT 01/19/2023 5:09 AM EDT Williams Murray DO LAB BLOOD ORDERABLES Performing Organization Address City/[facility]/ZIP Co de Phone Number [facility] ([facility] [employer] [facility] [employer] [facility]) [address] [place] [address] * (ABNORMAL) BASIC METABOLIC PANEL (01/19/2023 4:37 AM EDT) Only the most recent of39 resultswithin the time period is included. BUN 76(H) 8 - 26 mg/dL 01/19/2023 5:48 AM EDT [facility] ([facility] [employer] [facility] [employer] [facility]) Sodium 133(L) 136 - 145 mEq/L 01/19/2023 5:48 AM EDT [facility] ([facility] [employer] [facility] [employer] [facility]) Potassium 3.2(L) 3.5 - 5.1 mEq/L 01/19/2023 5:48 AM EDT [facility] ([facility] [employer] [facility] [employer] [facility]) Chloride 94(L) 98 - 107 mEq/L 01/19/2023 5:48 AM T [facility] ([facility] [employer] [facility] [employer] [facility]) CO2 26 23 - 31 mEq/L 01/19/2023 5:48 AM EDT [facility] ([facility] [employer] [facility] [employer] [facility]) Anion Gap 13(H) 4 - 12 mEq/L 01/19/2023 5:48 AM T [facility] ([facility] [employer] [facility] [employer] [facility]) Glucose 96 70 - 105 mg/dL 01/19/2023 5:48 AM [facility] ([facility] [employer] [facility] [employer] [facility]) Creatinine 1.45(H) 0.72 - 1.25 mg/dL 01/19/2023 5:48 AM T [facility] ([facility] [employer] [employer] [facility]) Glomerular Filtration Rate 50(L) >=59 mL/Min/1.7 3 m2 01/19/2023 5:48 AM T [facility] ([facility] [employer] [facility] [employer] [facility]) Calcium 9.0 8.4 - 10.2 mg/dL 01/19/2023 5:48 AM [facility] ([facility] [employer] [facility] [employer]) Osmo (Calc'd) 301 mOsm/kg 01/19/2023 5:48 AM [facility] ([facility] [employer] [facility] [employer] [facility]) Bun:Creat Ratio 52.41 5:48 AM [facility] ([facility] [employer]) Blood BLOOD / Unknown Venipuncture / Unknown 01/19/2023 4:37 AM EDT 01/19/2023 5:09 AM EDT Williams Murray DO LAB BLOOD ORDERABLES [facility] ([facility] [employer] [facility] [employer] [facility]) [address] [place] [address] * (ABNORMAL) CBC WITH DIFFERENTIAL (01/17/2023 3:52 AM EDT) Only the most recent of14 resultswithin the time period is included. WBC (White Blood Cell Count) 9.26 4.50 - 11.00 k/uL 01/17/2023 4:28 AM EDT [facility] ([facility] [employer] [facility] [employer] [facility]) RBC (Red Blood Cell Count) 3.10(L) 4.40 - 5.90 M/uL 01/17/2023 4:28 AM EDT [facility] [employer] [employer]) Hemoglobin 9.1(L) 13.0 - 18.0 g/dL 01/17/2023 4:28 AM T [facility] ([facility] [employer] [facility] [employer] [facility]) Hematocrit 30.0(L) 40.0 - 52.0 % 01/17/2023 4:28 AM EDT [facility] ([facility] [employer] [facility] [employer] [facility]) MCV (Mean Corpuscular Volume) 96.8 80.0 - 100.0 fL 01/17/2023 4:28 AM T [facility] ([facility] [employer] [facility] [employer] [facility]) MCH (Mean Corpuscular Hemoglobin) 29.4 26.0 - 34.0 pg 01/17/2023 4:28 AM T [facility] ([facility] [employer] [facility] [employer] [facility]) MCHC (Mean Corpuscular Hemoglobin Concentration) 30.3(L) 32.0 - 36.0 g/dL 01/17/2023 4:28 AM T [facility] ([facility] [employer] [facility] [employer] [facility]) RDW (Red Cell Distribution Width) 17.3(H) 11.5 - 14.5 % 01/17/2023 4:28 AM T [facility] ([facility] [employer] [facility] [employer] [facility]) Platelet Count 116(L) 150 - 440 k/uL 01/17/2023 4:28 AM EDT [facility] (ACCREDITED BY [employer]) MPV (Mean Platelet Volume) 10.1 7.4 - 10.6 fL 01/17/2023 4:28 AM [facility] (ACCREDITED BY THE [employer]) Nucleated RBC 0.2(H) 0 /100 WBC 01/17/2023 4:28 AM [facility] (ACCREDITED BY [employer]) Absolute Nucleated RBC (#) 0.02(H) 0 k/uL 01/17/2023 4:28 AM [facility] (ACCREDITED BY THE [employer]) Neutrophils (%) 54 % 3 4:28 AM [facility] (ACCREDITED BY [employer]) Lymphocytes (%) 12 % 4:28 AM [facility] (ACCREDITED BY THE [employer]) Monocytes (%) 10 % 01/17/2023 4:28 AM [facility] (ACCREDITED BY [employer]) Eosinophils (%) 22 % 4:28 AM [facility] (ACCREDITED BY [employer]) Basophils (%) 1 % 01/17/2023 4:28 AM [facility] (ACCREDITED BY [employer]) Immature Granulocytes (%) 1 % 01/17/2023 4:28 AM [facility] (ACCREDITED BY THE [employer]) Absolute Neutrophils (#) 5.07 1.80 - 7.70 k/uL 01/17/2023 4:28 AM [facility] (ACCREDITED BY THE [employer]) Absolute Lymphocytes (#) 1.15 1.00 - 4.80 k/uL 01/17/2023 4:28 AM [facility] (ACCREDITED BY THE [employer]) Absolute Monocytes (#) 0.88(H) 0.00 - 0.80 k/uL 01/17/2023 4:28 AM [facility] (ACCREDITED BY THE [employer]) Absolute Eosinophils (#) 2.00(H) 0.00 - 0.50 k/uL 01/17/2023 4:28 AM [facility] (ACCREDITED BY THE [employer]) Absolute Basophils (#) 0.06 0.00 - 0.20 k/uL 01/17/2023 4:28 AM EDT [facility] (ACCREDITED BY THE [employer]) Absolute Immature Granulocytes (#) 0.10(H) 0 k/uL 01/17/2023 4:28 AM EDT [facility] (ACCREDITED BY THE [employer]) Blood BLOOD / Unknown Venipuncture / Unknown 01/17/2023 3:52 AM EDT 01/17/2023 4:12 AM EDT Williams Stiles Trevor LOZA LAB BLOOD ORDERABLES Performing Organization Address City/[facility]/ZIP Co de Phone Number [facility] (ACCREDITED BY THE [employer]) [address] [place] [address] * (ABNORMAL) BNP (01/16/2023 3:55 AM EDT) Only the most recent of5 resultswithin the time period is included. Brain Natr Peptide 825(H) <=100 pg/mL 01/16/2023 5:42 AM EDT [facility] (ACCREDITED BY THE [employer]) Blood BLOOD / Unknown Venipuncture / Unknown 01/16/2023 3:55 AM EDT 01/16/2023 4:14 AM EDT [facility]le [facility]es [facility]- LAB BLOOD OR DERABLES Performing Organization Address City/[facility]/ZIP Co de Phone Number [facility] (ACCREDITED BY THE [employer]) [address] [place] [address] * XRAY CHEST 1 VIEW (01/14/2023 5:26 PM EDT) Anatomical Region Laterality Modality Chest Digital Radiogra phy 01/14/2023 5:30 PM EDT Impressions 01/14/2023 9:25 PM EDT IMPRESSION: Improving right upper lobe and left basilar pulmonary opacities. This report was dictated by Lan Hammond M.D. Reading Doctor: Jacek Severino Electronic Signature by: Jacek Severino Narrative 01/14/2023 9:25 PM EDT EXAMINATION: XRAY CHEST 1 VIEW - Single semi-upright frontal view of the chest CLINICAL HISTORY: ??pacemaker and lead position evaluation COMPARISON: January 12, 2023 FINDINGS: Interval removal right IJ vascular catheter. Unchanged left chest pacemaker with leads projecting over the right atrium, right ventricle and coronary sinus. Leads. Cardiomediastinal silhouette is unchanged from prior. Stable small left and trace right pleural effusions. No pneumothorax. Improving right upper and left basilar opacities. No acute osseus abnormality. Visualized upper abdomen unremarkable. Procedure Note Jacek Severino MD - 01/14/2023 EXAMINATION: XRAY CHEST 1 VIEW - Single semi-upright frontal view of thechest CLINICAL HISTORY: pacemaker and lead position evaluation COMPARISON: January 12, 2023 FINDINGS: Interval removal right IJ vascular catheter. Unchanged left chestpacemaker with leads projecting over the right atrium, right ventricle andcoronary sinus. Leads. Cardiomediastinal silhouette is unchanged from prior. Stable small left and trace right pleural effusions. No pneumothorax.Improving right upper and left basilar opacities. No acute osseus abnormality. Visualized upper abdomen unremarkable. IMPRESSION IMPRESSION: Improving right upper lobe and left basilar pulmonary opacities. This report was dictated by Lan Hammond M.D. Reading Doctor: Jacek Severino Electronic Signature by: Jacek Severino Gaurav Lin MD RADIOLOGY DIAGNOST IC ORDERABLES * EKG 12 LEAD (01/14/2023 4:50 PM EDT) Only the most recent of14 resultswithin the time period is included. EKG Text INTERFACED DOCUMENTS - [facility] - ABNORMAL ECG - Atrial-ventricu lar dual-paced rhythm Biventricular paced rhythm non-simultaneou s bi-vent pacing When compared with ECG of 14-Jan-2023 5:10:50, No significant change Reading Physician ? [id number]&Parker &Abdoulaye [facility] (ACCREDITED BY THE [employer] ) Heart Rate 73 EKG LAB P-R Interval 152 EKG LAB P [place] -22 EKG LAB QRS Duration 171 EKG LAB QT Internal 551 EKG LAB QTcB 609 EKG LAB QRS [place] -13 EKG LAB I-40 [place] 148 EKG LAB T-40 [place] 135 EKG LAB T Wave [place] -[address] [place] 173 EKG LAB 01/14/2023 4:50 PM EDT Gaurav Lin MD EKG ORDERABLES Performing Organization Address [facility]/ZIP Co de Phone Number [facility] (ACCREDITED BY THE [employer]) [address] [place] [phone] EKG LAB [address] [place] [address] * (ABNORMAL) VITAMIN B12 (01/14/2023 4:45 PM EDT) Vitamin B12 1,356(H) 213 - 816 pg/mL 01/14/2023 5:55 PM EDT [facility] (ACCREDITED BY THE [employer]) Blood BLOOD / Unknown Venipuncture / Unknown 01/14/2023 4:45 PM EDT 01/14/2023 4:49 PM EDT Gaurav Lin MD LAB BLOOD ORDERABL ES Performing Organization Address [facility] Co de Phone Number [facility] (ACCREDITED BY THE [employer]) [address] [place] [phone] * FOLATE (01/14/2023 4:45 PM EDT) Folate 3.4 See Comment ng/mL 01/14/2023 5:55 PM EDT [facility] (ACCREDITED BY THE [employer]) Comment: Folate Reference Ranges: Normal: ? >5.4 ng/mL Indeterminant: ?? 3.4-5.4 ng/mL Deficient: ?<3.4 ng/mL Blood BLOOD / Unknown Venipuncture / Unknown 01/14/2023 4:45 PM EDT 01/14/2023 4:49 PM EDT Gaurav Lin MD LAB BLOOD ORDERABL ES Performing Organization Address City/[facility]/ZIP Co de Phone Number [facility] (ACCREDITED BY THE [employer]) [address] [place] [phone] * (ABNORMAL) HEMATOCRIT (01/14/2023 4:45 PM EDT) Hematocrit 28.7(L) 40.0 - 52.0 % 01/14/2023 4:57 PM EDT [facility] (ACCREDITED BY THE [employer]) Blood BLOOD / Unknown Venipuncture / Unknown 01/14/2023 4:45 PM EDT 01/14/2023 4:49 PM EDT Gaurav Lin MD LAB BLOOD ORDERABL ES Performing Organization Address City/[facility]/ZIP Co de Phone Number [facility] (ACCREDITED BY THE [employer]) [address] [place] [address] * (ABNORMAL) HEMOGLOBIN (01/14/2023 4:45 PM EDT) [facility] Hemoglobin 8.8(L) 13.0 - 18.0 g/dL 01/14/2023 4:57 PM EDT [facility] (ACCREDITED BY THE [employer]) Blood BLOOD / Unknown Venipuncture / Unknown 01/14/2023 4:45 PM EDT 01/14/2023 4:49 PM EDT Gaurav Lin MD LAB BLOOD ORDERABL ES [facility] (ACCREDITED BY THE [employer]) [address] [place] [address] * (ABNORMAL) FERRITIN (01/14/2023 1:31 PM EDT) Ferritin 338(H) 22 - 322 ng/mL 01/14/2023 3:38 PM EDT [facility] (ACCREDITED BY THE [employer]) Blood BLOOD / Unknown Venipuncture / Unknown 01/14/2023 1:31 PM EDT 01/14/2023 1:37 PM EDT Gaurav Lin MD LAB BLOOD ORDERABL ES Performing Organization Address City/[facility]/ZIP Co de Phone Number [facility] (ACCREDITED BY THE [employer]) [address] [place] [address] * (ABNORMAL) TOTAL IRON BINDING CAPACITY (TIBC) (01/14/2023 1:31 PM EDT) [facility] Transferrin 256 163 - 344 mg/dL 01/14/2023 3:20 PM EDT [facility] (ACCREDITED BY THE [employer]) TIBC 320 250 - 450 ug/dL 01/14/2023 3:20 PM EDT [facility] (ACCREDITED BY THE [employer]) % Transferrin Saturation 13(L) 20 - 50 % 01/14/2023 3:20 PM EDT [facility] (ACCREDITED BY THE [employer]) Iron 43(L) 65 - 175 ug/dL 01/14/2023 3:20 PM EDT [facility] (ACCREDITED BY THE [employer]) Blood BLOOD / Unknown Venipuncture / Unknown 01/14/2023 1:31 PM EDT 01/14/2023 1:37 PM EDT Gaurav Lin MD LAB BLOOD ORDERABL ES [facility] (ACCREDITED BY THE [employer]) [address] [place] [address] * (ABNORMAL) LD (LDH) (01/14/2023 1:31 PM EDT) Lactate Dehydrogenase (LD; LDH) 399(H) 125 - 220 U/L 01/14/2023 2:13 PM EDT [facility] (ACCREDITED BY THE [employer]) Blood BLOOD / Unknown Venipuncture / Unknown 01/14/2023 1:31 PM EDT 01/14/2023 1:37 PM EDT Gaurav Lin MD LAB BLOOD ORDERABL ES Performing Organization Address City/[facility]/ZIP Co de Phone Number [facility] (ACCREDITED BY THE [employer]) [address] [place] [phone] * (ABNORMAL) HAPTOGLOBIN (01/14/2023 1:31 PM EDT) Haptoglobin 30(L) 40 - 268 mg/dL 01/14/2023 2:13 PM EDT [facility] (ACCREDITED BY THE [employer]) Blood BLOOD / Unknown Venipuncture / Unknown 01/14/2023 1:31 PM EDT 01/14/2023 1:37 PM EDT Gaurav Lin MD LAB BLOOD ORDERABL ES Performing Organization Address City/[facility]/ZIP Co de Phone Number [facility] (ACCREDITED BY THE [employer]) [address] [place] [phone] * (ABNORMAL) HEPATIC FUNCTION PANEL (01/14/2023 5:18 AM EDT) Only the most recent of3 resultswithin the time period is included. Albumin 2.6(L) 3.2 - 4.6 g/dL 01/14/2023 6:08 AM EDT [facility] (ACCREDITED BY THE [employer]) Bilirubin, Total 1.1 0.1 - 1.2 mg/dL 01/14/2023 6:08 AM EDT [facility] (ACCREDITED BY THE [employer]) Bilirubin, Direct 0.7(H) <=0.5 mg/dL 01/14/2023 6:08 AM EDT [facility] (ACCREDITED BY THE [employer]) Alk Phosphatase 42 40 - 150 U/L 01/14/2023 6:08 AM EDT [facility] (ACCREDITED BY THE [employer]) SGOT (AST) 33 5 - 34 U/L 01/14/2023 6:08 AM EDT [facility] (ACCREDITED BY THE [employer]) SGPT (ALT) 18 0 - 55 U/L 01/14/2023 6:08 AM EDT [facility] (ACCREDITED BY THE [employer]) Protein, Total 5.1(L) 6.2 - 8.1 g/dL 01/14/2023 6:08 AM EDT [facility] (ACCREDITED BY THE [employer]) Bilirubin, Indirect 0.4 mg/dL 01/14/2023 6:08 AM EDT [facility] (ACCREDITED BY THE [employer]) Globulin (Calc'd) 2.5 g/dL 01/14/2023 6:08 AM T [facility] (ACCREDITED BY THE [employer]) A:G Ratio 1.04 01/14/2023 6:08 AM T [facility] (ACCREDITED BY THE [employer]) Blood BLOOD / Unknown Venipuncture / Unknown 01/14/2023 5:18 AM EDT 01/14/2023 5:31 AM EDT Gaurav Lin MD LAB BLOOD ORDERABL ES [facility] (ACCREDITED BY THE [employer]) [address] [place] [address] * (ABNORMAL) RETICULOCYTE PANEL (01/13/2023 4:16 AM EDT) Reticulocyte Count (%) 8.44(H) 0.20 - 2.90 % 01/13/2023 10:42 PM EDT [facility] (ACCREDITED BY THE [employer]) RBC (Red Blood Cell Count) 2.97(L) 4.40 - 5.90 M/uL 01/13/2023 10:42 PM EDT [facility] (ACCREDITED BY THE [employer]) Hematocrit 28.8(L) 40.0 - 52.0 % 01/13/2023 10:42 PM EDT [facility] (ACCREDITED BY THE [employer]) Absolute Reticulocyte Count (#) 250.8(H) 25.0 - 119.0 K/uL 01/13/2023 10:42 PM EDT [facility] (ACCREDITED BY THE [employer]) Immature Reticulocyte Fraction 29.5(H) 3.0 - 15.9 01/13/2023 10:42 PM EDT [facility] (ACCREDITED BY THE [employer]) Reticulocyte Hemoglobin Content 25.7(L) 30 - 38 pg 01/13/2023 10:42 PM EDT [facility] (ACCREDITED BY THE [employer]) Blood BLOOD / Unknown Venipuncture / Unknown 01/13/2023 4:16 AM EDT 01/13/2023 4:30 AM EDT Gaurav Lin MD LAB BLOOD ORDERABL ES [facility] (ACCREDITED BY THE [employer]) [address] [place] [address] * XRAY CHEST 1 VIEW (01/12/2023 7:50 PM EDT) Anatomical Region Laterality Modality Chest Digital Radiogra phy 01/12/2023 10:5 6 PM EDT Impressions 01/12/2023 10:59 PM EDT IMPRESSION: Interval left-sided 3-lead pacer, no pneumothorax. Similar right suprahilar and left basilar pulmonary opacities with small bilateral pleural effusions. Reading Doctor: Miller Mills Electronic Signature by: Miller Mills Narrative 01/12/2023 10:59 PM EDT EXAM: XRAY CHEST 1 VIEW DATE: 01/12/2023 7:50 PM DICTATED: 01/12/2023 10:56 PM CLINICAL INDICATION: 77 years old Male: ??s/p biv ppm, do not lift left arm above shoulder level COMPARISON: 01/10/2023 FINDINGS: Right suprahilar opacity similar to prior exam. Mild left basilar opacity persists. Small bilateral pleural effusions. No pneumothorax. Enlarged cardiac silhouette with sternotomy wires, aortic valve prosthetic similar to prior. Right IJ sheath remains. Interval left-sided pacer with leads projecting over right atrium, right ventricle, coronary sinus. Procedure Note Miller Mills MD - 01/12/2023 EXAM: XRAY CHEST 1 VIEW DATE: 01/12/2023 7:50 PM DICTATED: 01/12/2023 10:56 PM CLINICAL INDICATION: 77 years old Male: s/p biv ppm, do not lift left armabove shoulder level COMPARISON: 01/10/2023 FINDINGS: Right suprahilar opacity similar to prior exam. Mild left basilar opacitypersists. Small bilateral pleural effusions. No pneumothorax. Enlargedcardiac silhouette with sternotomy wires, aortic valve prosthetic similarto prior. Right IJ sheath remains. Interval left-sided pacer with leadsprojecting over right atrium, right ventricle, coronary sinus. IMPRESSION IMPRESSION: Interval left-sided 3-lead pacer, no pneumothorax. Similar right suprahilar and left basilar pulmonary opacities with smallbilateral pleural effusions. Reading Doctor: Miller Mills Electronic Signature by: Miller Mills Lilibeth Stanford MD RADIOLOG Y DIAGNOSTIC ORDERABLES * (ABNORMAL) CULTURE, URINE (01/12/2023 10:15 AM EDT) Urine Culture 14,000 CFU/mL Pseudomonas aeruginosa(A) TORO 01/14/2023 10:37 AM EDT [facility] (ACCREDITED BY THE [employer] ) Urine URETHRAL STRUCTURE / Unknown Non-blood Collection / Unknown 01/12/2023 10:15 AM EDT 01/12/2023 10:45 AM EDT Narrative Organism Antibiotic Method Susceptibility Pseudomonas aeruginosa Cefepime TORO <=2 ug/ml: Susceptible Pseudomonas aeruginosa Ciprofloxacin TORO <=0.25 ug/ml: Susceptible Pseudomonas aeruginosa Meropenem TORO <=1 ug/ml: Susceptible Pseudomonas aeruginosa Piperacillin/Tazobactam TORO <=8 ug/ml: Susceptible Pseudomonas aeruginosa Tobramycin TORO <=2 ug/ml: Susceptible Williams Murray DO LAB MICROBIOLOGY ORD ERABLES [facility] (ACCREDITED BY THE [employer]) [address] [place] [address] * (ABNORMAL) URINALYSIS, COMPLETE (01/12/2023 10:15 AM EDT) Only the most recent of2 resultswithin the time period is included. Color, Urine Straw Colorless, Yellow, or Straw 01/12/2023 10:56 AM EDT [facility] (ACCREDITED BY THE [employer] ) Clarity, Urine Clear Clear 01/12/2023 10:56 AM T [facility] (ACCREDITED BY THE [employer] ) Specific [place], Urine 1.011 1.005 - 1.030 01/12/2023 10:56 AM [facility] (ACCREDITED BY THE [employer] ) pH, Urine 6.5 5.0 - 8.0 01/12/2023 10:56 AM T [facility] (ACCREDITED BY THE [employer] ) Hemoglobin, Urine Trace(A) Negative 01/12/2023 10:56 AM T [facility] (ACCREDITED BY THE [employer] ) Bilirubin, Urine Negative Negative 01/12/2023 10:56 AM T [facility] (ACCREDITED BY THE [employer] ) Urobilinogen, Urine Normal Normal 01/12/2023 10:56 AM T [facility] (ACCREDITED BY THE [employer] ) Ketones, Urine Negative Negative 01/12/2023 10:56 AM T [facility] (ACCREDITED BY THE [employer] ) Glucose, Urine Negative Negative 01/12/2023 10:56 AM T [facility] (ACCREDITED BY THE [employer] ) Nitrites, Urine Negative Negative 01/12/2023 10:56 AM T [facility] (ACCREDITED BY THE [employer] ) Leukocyte Esterase, Urine 1+(A) Negative 01/12/2023 10:56 AM [facility] (ACCREDITED BY THE [employer] ) Protein, Urine Negative Negative 01/12/2023 10:56 AM EDT [facility] (ACCREDITED BY THE [employer] ) RBC, Urine 2(H) 0 /HPF 01/12/2023 10:56 AM EDT [facility] (ACCREDITED BY THE [employer] ) WBC, Urine 4(H) 0 /HPF 01/12/2023 10:56 AM EDT [facility] (ACCREDITED BY THE [employer] ) Squamous Epithelial Cells, Urine Few(A) None Seen /HPF 01/12/2023 10:56 AM EDT [facility] (ACCREDITED BY THE [employer] ) Bacteria, Urine Present(A) None Seen 01/12/2023 10:56 AM EDT [facility] (ACCREDITED BY THE [employer] ) Non-Squamous Epithelial Cells, Urine Few(A) (none) /HPF 01/12/2023 10:56 AM EDT [facility] (ACCREDITED BY THE [employer] ) Hyaline Casts, Urine Present(A) (none) /LPF 01/12/2023 10:56 AM EDT [facility] (ACCREDITED BY THE [employer] ) Urine URETHRAL STRUCTURE / Unknown Non-blood Collection / Unknown 01/12/2023 10:15 AM EDT 01/12/2023 10:45 AM EDT Orlin Pratt MD LAB URINE ORDERABL ES [facility] (ACCREDITED BY THE [employer]) [address] [place] [address] * VAT US GUIDED PERIPHERAL IV PLACEMENT (01/12/2023 9:55 AM EDT) Narrative Model, [employer] - 01/12/2023 10:07 AM EDT Impression: The Peripheral IV line was placed by the Vascular Access Team (VAT). Please see progress notes for full report. Williams Stiles Brus DO RADIOLOGY VAT ORDERA BLES * (ABNORMAL) CBC WITH DIFF (01/11/2023 4:03 AM EDT) Only the most recent of2 resultswithin the time period is included. WBC (White Blood Cell Count) 6.70 4.50 - 11.00 k/uL 01/11/2023 4:22 AM [facility] (ACCREDITED BY THE [employer]) RBC (Red Blood Cell Count) 2.98(L) 4.40 - 5.90 M/uL 01/11/2023 4:22 AM [facility] (ACCREDITED BY THE [employer]) Hemoglobin 9.2(L) 13.0 - 18.0 g/dL 01/11/2023 4:22 AM [facility] (ACCREDITED BY THE [employer]) Hematocrit 29.0(L) 40.0 - 52.0 % 01/11/2023 4:22 AM [facility] (ACCREDITED BY THE [employer]) MCV (Mean Corpuscular Volume) 97.3 80.0 - 100.0 fL 01/11/2023 4:22 AM [facility] (ACCREDITED BY THE [employer]) MCH (Mean Corpuscular Hemoglobin) 30.9 26.0 - 34.0 pg 01/11/2023 4:22 AM [facility] (ACCREDITED BY THE [employer] [facility] [employer]) MCHC (Mean Corpuscular Hemoglobin Concentration) 31.7(L) 32.0 - 36.0 g/dL 01/11/2023 4:22 AM [facility] (ACCREDITED BY THE [employer] [facility] [employer]) RDW (Red Cell Distribution Width) 17.4(H) 11.5 - 14.5 % 01/11/2023 4:22 AM [facility] (ACCREDITED BY THE [employer]) Platelet Count 89(L) 150 - 440 k/uL 01/11/2023 4:22 AM [facility] (ACCREDITED BY THE [employer] [facility] [employer]) MPV (Mean Platelet Volume) 10.2 7.4 - 10.6 fL 01/11/2023 4:22 AM [facility] (ACCREDITED BY THE [employer]) Nucleated RBC 0.0 0 /100 WBC 01/11/2023 4:22 AM [facility] (ACCREDITED BY THE [employer] [facility] [employer]) Absolute Nucleated RBC (#) <0.01 0 k/uL 01/11/2023 4:22 AM [facility] (ACCREDITED BY THE [employer] [facility] [employer]) Neutrophils (%) 77 % 4:22 AM [facility] (ACCREDITED BY THE [employer] [facility] [employer]) Lymphocytes (%) 6 % 4:22 AM [facility] (ACCREDITED BY THE [employer] [facility] [employer]) Monocytes (%) 6 % 01/11/2023 4:22 AM [facility] (ACCREDITED BY THE [employer] [facility] [employer]) Eosinophils (%) 11 % 4:22 AM [facility] (ACCREDITED BY THE [employer] [facility] [employer]) Basophils (%) 0 % 01/11/2023 4:22 AM [facility] (ACCREDITED BY THE [employer] [facility] [employer]) Immature Granulocytes (%) 0 % 01/11/2023 4:22 AM [facility] (ACCREDITED BY THE [employer] [facility] [employer]) Absolute Neutrophils (#) 5.10 1.80 - 7.70 k/uL 01/11/2023 4:22 AM [facility] (ACCREDITED BY THE [employer]) Absolute Lymphocytes (#) 0.42(L) 1.00 - 4.80 k/uL 01/11/2023 4:22 AM [facility] (ACCREDITED BY THE [employer] [facility] [employer]) Absolute Monocytes (#) 0.41 0.00 - 0.80 k/uL 01/11/2023 4:22 AM [facility] (ACCREDITED BY THE [employer] [facility] [employer]) Absolute Eosinophils (#) 0.73(H) 0.00 - 0.50 k/uL 01/11/2023 4:22 AM [facility] (ACCREDITED BY THE [employer] [facility] [employer]) Absolute Basophils (#) 0.02 0.00 - 0.20 k/uL 01/11/2023 4:22 AM [facility] ([facility]CR[facility] BY [facility] [employer]) Absolute Immature Granulocytes (#) 0.02(H) 0 k/uL 01/11/2023 4:22 AM EDT [facility] ([facility]CR[facility] BY [employer]) Blood Venipuncture / Unknown 01/11/2023 4:03 AM EDT 01/11/2023 4:08 AM EDT Natividad Tellojesus manuel Hatch ACNP LAB BLOOD ORDER [place] Performing Organization Address City/[facility]/ZIP Co de Phone Number [facility] ([facility]CR[facility]ITED BY [employer]) [address] [place] [id number] * POTASSIUM (01/10/2023 10:41 PM EDT) Only the most recent of3 resultswithin the time period is included. [facility] Potassium 4.2 3.5 - 4.5 mEq/L 01/10/2023 11:46 PM EDT [facility] ([facility] [employer]) Blood BLOOD / Unknown Venipuncture / Unknown 01/10/2023 10:41 PM EDT 01/10/2023 11:33 PM EDT Karuna NGUYEN LAB BLOOD ORDERABLES Performing Organization Address City/[facility]/ZIP Co de Phone Number [facility] (ACCREDITED BY [facility] [employer]) [address] [place] [phone] * (ABNORMAL) CULTURE, RESPIRATORY (01/10/2023 5:52 PM EDT) Pathologist [facility] Respiratory Culture 1+ Gram negative rods(s) not Pseudomonas aeruginosa, Acinetobacter species, Stenotrophomonas maltophilia, nor Burkholderia species(A) 01/12/2023 3:43 PM EDT [facility] (ACCREDITED BY [facility] [employer] [facility]) Respiratory Culture 1+ Gram negative rods(s) not Pseudomonas aeruginosa, Acinetobacter species, Stenotrophomonas maltophilia, nor Burkholderia species(A) 01/12/2023 3:43 PM EDT [facility] (ACCREDITED BY [facility] [employer] [facility]) Respiratory Culture Gram negative rods(s) not Pseudomonas aeruginosa, Acinetobacter species, Stenotrophomonas maltophilia, nor Burkholderia species(A) 01/12/2023 3:43 PM EDT [facility] (ACCREDITED BY [facility] [employer] [facility]) Comment:One colony Gram Stain >=15 WBC/LPF 01/12/2023 3:43 PM EDT [facility] (ACCREDITED BY [facility] [employer] [facility]) Gram Stain <15 Epithelial cells/LPF 01/12/2023 3:43 PM EDT [facility] (ACCREDITED BY [facility] [employer] [facility]) Gram Stain No organisms seen 023 3:43 PM EDT [facility] (ACCREDITED BY [facility] [employer] [facility]) Respiratory SPUTUM SPECIMEN / Unknown 01/10/2023 5:52 PM EDT 01/10/2023 5:57 PM EDT Narrative [facility] (ACCREDITED BY [facility] [employer]) - 01/12/2023 3:43 PM EDT 2+ Oropharyngeal nia Tran Fowler AGNP LAB MICROBIOLO GY ORDERABLES [facility] (ACCREDITED BY [facility] [employer]) [address] [place] [address] * XRAY CHEST 1 VIEW (01/10/2023 5:08 AM EDT) Anatomical Region Laterality Modality Chest Digital Radiogra phy 01/10/2023 7:53 AM EDT Impressions 01/10/2023 7:54 AM EDT IMPRESSION: No pneumothorax. Persistent bilateral upper lobe opacities. Improved pulmonary edema. Reading Doctor: Hugh Salcido Electronic Signature by: Hugh Salcido 01/10/2023 7:54 AM EDT Procedure(s): XRAY CHEST 1 VIEW Clinical History: ??s/p TAVR ??s/p TAVR Findings: ??Single view of the chest demonstrates cardiomegaly. Slight improvement in pulmonary edema. Bilateral upper lobe opacities persist. Patient status post TAVR. Patient status post previous median sternotomy. Right IJ sheath in place and may have a kink at its proximal aspect. Procedure Note Hugh Salcido MD - 01/10/2023 Procedure(s): XRAY CHEST 1 VIEW Clinical History: s/p TAVR s/p TAVR Findings: Single view of the chest demonstrates cardiomegaly. Slightimprovement in pulmonary edema. Bilateral upper lobe opacities persist.Patient status post TAVR. Patient status post previous median sternotomy.Right IJ sheath in place and may have a kink at its proximal aspect. IMPRESSION IMPRESSION: No pneumothorax. Persistent bilateral upper lobe opacities.Improved pulmonary edema. Reading Doctor: Hugh Salcido Electronic Signature by: Hugh Salcido [employer] RADIOLOGY DIAGNOST IC ORDERABLES * CBC REFLEX LAB ONLY ORDER (01/10/2023 3:11 AM EDT) Only the most recent of2 resultswithin the time period is included. Blood BLOOD / Unknown Venipuncture / Unknown 01/10/2023 3:11 AM EDT 01/10/2023 3:16 AM EDT Zara Davis Marilia [facility] LAB HEMATOLOGY ORD ERABLES [facility] (ACCREDITED BY THE [employer]) [address] [place] [id number] * CALCIUM, IONIZED, WHOLE BLOOD (01/09/2023 11:21 PM EDT) Only the most recent of3 resultswithin the time period is included. Ionized Calcium 4.5 4.5 - 5.3 mg/dL 01/09/2023 11:43 PM EDT [facility] (ACCREDITED BY [facility] [employer]) Blood BLOOD / Unknown Venipuncture / Unknown 01/09/2023 11:21 PM EDT 01/09/2023 11:29 PM EDT [facility]ara [employer] LAB BLOOD ORDERABL ES Performing Organization Address City/[facility]/ZIP Co de Phone Number [facility] (ACCREDITED BY THE [employer]) [address] [place] [phone] * ECHO (01/09/2023 6:36 AM EDT) Only the most recent of3 resultswithin the time period is included. EC IVSd 1.1 cm [facility] EC LVIDd 5.9 cm [facility] EC LVIDs 4.1 cm [facility] EC LVPWd 1.5 cm [facility] EC IVS/LVPW 0.7 [facility] EC FS 31.4 % [facility] EC EDV(Teich) 176.1 ml [facility] EC ESV(Teich) 73.3 ml [facility] EC EF(Teich) 58.4 % [facility] EC EF (est.) 44.4 % [facility] EC EDV(cubed) 209.9 ml [facility] EC ESV(cubed) 67.8 ml [facility] EC EF(cubed) 67.7 % [facility] EC LV mass(C)d 341.4 grams [facility] EC LV mass(C)dI 144.4 grams/m\S \2 [facility] EC SV(Teich) 102.8 ml [facility] EC SI(Teich) 43.5 ml/m\S\2 [facility] EC SV(cubed) 142.1 ml [facility] EC SI(cubed) 60.1 ml/m\S\2 [facility] EC Ao root diam 2.7 cm [facility] EC Ao root area 5.6 cm\S\2 [facility] EC LA dimension 4.7 cm [facility] EC LA/Ao 1.8 [facility] EC LVOT diam 2.4 cm [facility] EC LVOT area 4.4 cm\S\2 [facility] EC LVOTareatraced 4.5 cm\S\2 [facility] EC LVLd ap4 10 cm [facility] EC EDV(MOD-sp4) 187 ml [facility] EC LVLs ap4 9.6 cm [facility] EC ESV(MOD-sp4) 106 ml [facility] EC EF(MOD-sp4) 43.3 % [facility] EC LVLd ap2 9.7 cm [facility] EC EDV(MOD-sp2) 154 ml [facility] EC LVLs ap2 8.6 cm [facility] EC ESV(MOD-sp2) 76 ml [facility] EC EF(MOD-sp2) 50.6 % [facility] EC SV(MOD-sp4) 81 ml [facility] EC SI(MOD-sp4) 34.3 ml/m\S\2 [facility] EC SV(MOD-sp2) 78 ml [facility] EC SI(MOD-sp2) 33 ml/m\S\2 [facility] EC MVEmaxvel 121 cm/sec [facility] EC MVAmaxvel 113 cm/sec [facility] EC MV E/A 1.1 [facility] EC MV dec time 0.26 sec [facility] EC Ao V2 max 293.1 cm/sec [facility] EC Ao max PG 34.4 mmHg [facility] EC Ao max PG (full) 28.5 mmHg [facility] EC Ao V2 mean 187.7 cm/sec [facility] EC Ao mean PG 16.9 mmHg [facility] EC Ao mean PG (full) 13.8 mmHg [facility] EC Ao V2 VTI 59.8 cm [facility] EC CHELITA(I,A) 1.8 cm\S\2 [facility] EC CHELITA(I,D) 1.8 cm\S\2 [facility] EC CHELITA(V,A) 1.8 cm\S\2 [facility] EC CHELITA(V,D) 1.8 cm\S\2 [facility] EC LVOTmaxgradient 5.9 mmHg [facility] EC [id number] 3 mmHg [facility] EC LVOTmaxvel 121.3 cm/sec [facility] EC LV V1 mean 79.8 cm/sec [facility] EC LV V1 VTI 25 cm [facility] EC SV(Ao) 333 ml [facility] EC SI(Ao) 140.8 ml/m\S\2 [facility] EC SV(LVOT) 109.9 ml [facility] EC SI(LVOT) 46.5 ml/m\S\2 [facility] EC PA V2 max 173.7 cm/sec [facility] EC PA max PG 12.1 mmHg [facility] Anatomical Region Laterality Modality Other 01/09/2023 6:36 AM EDT Narrative 01/10/2023 4:37 PM EDT Reason for Exam: Aortic Valve Replacement Date of Service: 01/09/2023 Patient Height ??175.0 ??cm Patient Weight ??125.0 ??kg Systolic Pressure ??148 ??mmHg Diastolic Pressure ??51 ??mmHg Study Location ??ECH ?? BSA ??2.4 ??m^2 Procedure: A complete two-dimensional transthoracic echocardiogram was performed (2D, M-mode, spectral and color flow Doppler). Study Quality: Technically adequate. A contrast injection of Definity was performed to improve assessment of LV function. Left Ventricle: The left ventricle is mildly dilated. There is normal left ventricular wall thickness. LVEDD 5.9 cm. Ejection Fraction = 40-45%. Abnormal (paradoxical) septal motion consistent with LBBB. Mild to moderate global hypokinesis. Inferior and lateral vega move best. There is no thrombus. LV diastolic function can not be accurately assessed. Left Atrium: The left atrium is mildly dilated. Right Atrium: Right atrial size is normal. Right Ventricle: The right ventricle is normal in size and function. Aortic Valve: The peak aortic valve velocity 307 cm/s. Aortic mean pressure gradient= 18 mmHg. VTI ratio 0.39. No paravalvular leak. S/p [id number] TAVR with 26 mm Evolut FX (within 25 mm Magna, post dilated with 23 mm True balloon) on 01/08/23. Well-seated, normally functioning aortic prosthesis. Mitral Valve: The mitral valve is normal in structure and function. There is mild mitral regurgitation. Tricuspid Valve: Structurally normal tricuspid valve. There was insufficient TR detected to calculate RV systolic pressure. Pulmonic Valve: The Pulmonic Valve is partially seen. Mild pulmonic valvular regurgitation. Arteries: The aortic root is normal size. Venous: Systolic blunting was observed in the RUPV spectral Doppler flow pattern. The inferior vena cava is normal in size, with a normal collapsibility index. Pericardium/Pleura: There is no pericardial effusion. MMode 2D Measurements & Calculations IVSd - 1.1 cm LVIDd - 5.9 cm LVIDs - 4.1 cm LVPWd - 1.5 cm IVS/LVPW - 0.7 FS - 31.4 % EDV(Teich) - 176.1 ml ESV(Teich) - 73.3 ml EF(Teich) - 58.4 % EF (est.) - 44.4 % EDV(cubed) - 209.9 ml ESV(cubed) - 67.8 ml EF(cubed) - 67.7 % LV mass(C)d - 341.4 grams LV mass(C)dI - 144.4 grams/m^2 SV(Teich) - 102.8 ml SI(Teich) - 43.5 ml/m^2 SV(cubed) - 142.1 ml SI(cubed) - 60.1 ml/m^2 Ao root diam - 2.7 cm Ao root area - 5.6 cm^2 LA dimension - 4.7 cm LA/Ao - 1.8 LVOT diam - 2.4 cm LVOT area - 4.4 cm^2 LVOT area(traced) - 4.5 cm^2 LVLd ap4 - 10 cm EDV(MOD-sp4) - 187 ml LVLs ap4 - 9.6 cm ESV(MOD-sp4) - 106 ml EF(MOD-sp4) - 43.3 % LVLd ap2 - 9.7 cm EDV(MOD-sp2) - 154 ml LVLs ap2 - 8.6 cm ESV(MOD-sp2) - 76 ml EF(MOD-sp2) - 50.6 % SV(MOD-sp4) - 81 ml SI(MOD-sp4) - 34.3 ml/m^2 SV(MOD-sp2) - 78 ml SI(MOD-sp2) - 33 ml/m^2 Doppler Measurements & Calculations MV E max bee - 121 cm/sec MV A max bee - 113 cm/sec MV E/A - 1.1 MV dec time - 0.26 sec Ao V2 max - 293.1 cm/sec Ao max PG - 34.4 mmHg Ao max PG (full) - 28.5 mmHg Ao V2 mean - 187.7 cm/sec Ao mean PG - 16.9 mmHg Ao mean PG (full) - 13.8 mmHg Ao V2 VTI - 59.8 cm CHELITA(I,A) - 1.8 cm^2 CHELITA(I,D) - 1.8 cm^2 CHELITA(V,A) - 1.8 cm^2 CHELITA(V,D) - 1.8 cm^2 LVOT max gradient - 5.9 mmHg LV V1 mean PG - 3 mmHg LVOT max bee - 121.3 cm/sec LV V1 mean - 79.8 cm/sec LV V1 VTI - 25 cm SV(Ao) - 333 ml SI(Ao) - 140.8 ml/m^2 SV(LVOT) - 109.9 ml SI(LVOT) - 46.5 ml/m^2 PA V2 max - 173.7 cm/sec PA max PG - 12.1 mmHg Conclusion The left ventricle is mildly dilated. Ejection Fraction = 40-45%. Abnormal (paradoxical) septal motion consistent with LBBB. The right ventricle is normal in size and function. The left atrium is mildly dilated. S/p [id number] TAVR with 26 mm Evolut FX (within 25 mm Magna, post dilated with 23 mm True balloon) on 01/08/23. Well-seated, normally functioning aortic prosthesis. No paravalvular leak. The peak aortic valve velocity 3.1 m/s. Aortic mean pressure gradient= 18 mmHg. VTI ratio 0.39. There is mild mitral regurgitation. InterpretingPhysician:Interpreting Physician: ?Robert Aguirre ??Mabel, ??electronically signed on 2023-01-10 16:37:24.54 Procedure Note Timothy Monroe MD - 01/10/2023 Reason for Exam: Aortic Valve Replacement Date of Service: 01/09/2023 Patient Height 175.0 cm Patient Weight 125.0 kg Systolic Pressure 148 mmHg Diastolic Pressure 51 mmHg Study Location ECH BSA 2.4 m^2 Procedure: A complete two-dimensional transthoracic echocardiogram was performed(2D, M-mode, spectral and color flow Doppler). Study Quality: Technically adequate. A contrast injection of Definity was performed to improve assessment ofLV function. Left Ventricle: The left ventricle is mildly dilated. There is normal left ventricular wall thickness. LVEDD 5.9 cm. Ejection Fraction = 40-45%. Abnormal (paradoxical) septal motion consistent with LBBB. Mild to moderate global hypokinesis. Inferior and lateral vega movebest. There is no thrombus. LV diastolic function can not be accurately assessed. Left Atrium: The left atrium is mildly dilated. Right Atrium: Right atrial size is normal. Right Ventricle: The right ventricle is normal in size and function. Aortic Valve: The peak aortic valve velocity 307 cm/s. Aortic mean pressure gradient= 18 mmHg. VTI ratio 0.39. No paravalvular leak. S/p [id number] TAVR with 26 mm Evolut FX (within 25 mm Magna, post dilated with 23 mm True balloon) on 01/08/23. Well-seated, normally functioning aortic prosthesis. Mitral Valve: The mitral valve is normal in structure and function. There is mild mitral regurgitation. Tricuspid Valve: Structurally normal tricuspid valve. There was insufficient TR detected to calculate RV systolic pressure. Pulmonic Valve: The Pulmonic Valve is partially seen. Mild pulmonic valvular regurgitation. Arteries: The aortic root is normal size. Venous: Systolic blunting was observed in the RUPV spectral Doppler flowpattern. The inferior vena cava is normal in size, with a normal collapsibilityindex. Pericardium/Pleura: There is no pericardial effusion. MMode 2D Measurements & Calculations IVSd - 1.1 cm LVIDd - 5.9 cm LVIDs - 4.1 cm LVPWd - 1.5 cm IVS/LVPW - 0.7 FS - 31.4 % EDV(Teich) - 176.1 ml ESV(Teich) - 73.3 ml EF(Teich) - 58.4 % EF (est.) - 44.4 % EDV(cubed) - 209.9 ml ESV(cubed) - 67.8 ml EF(cubed) - 67.7 % LV mass(C)d - 341.4 grams LV mass(C)dI - 144.4 grams/m^2 SV(Teich) - 102.8 ml SI(Teich) - 43.5 ml/m^2 SV(cubed) - 142.1 ml SI(cubed) - 60.1 ml/m^2 Ao root diam - 2.7 cm Ao root area - 5.6 cm^2 LA dimension - 4.7 cm LA/Ao - 1.8 LVOT diam - 2.4 cm LVOT area - 4.4 cm^2 LVOT area(traced) - 4.5 cm^2 LVLd ap4 - 10 cm EDV(MOD-sp4) - 187 ml LVLs ap4 - 9.6 cm ESV(MOD-sp4) - 106 ml EF(MOD-sp4) - 43.3 % LVLd ap2 - 9.7 cm EDV(MOD-sp2) - 154 ml LVLs ap2 - 8.6 cm ESV(MOD-sp2) - 76 ml EF(MOD-sp2) - 50.6 % SV(MOD-sp4) - 81 ml SI(MOD-sp4) - 34.3 ml/m^2 SV(MOD-sp2) - 78 ml SI(MOD-sp2) - 33 ml/m^2 Doppler Measurements & Calculations MV E max bee - 121 cm/sec MV A max bee - 113 cm/sec MV E/A - 1.1 MV dec time - 0.26 sec Ao V2 max - 293.1 cm/sec Ao max PG - 34.4 mmHg Ao max PG (full) - 28.5 mmHg Ao V2 mean - 187.7 cm/sec Ao mean PG - 16.9 mmHg Ao mean PG (full) - 13.8 mmHg Ao V2 VTI - 59.8 cm CHELITA(I,A) - 1.8 cm^2 CHELITA(I,D) - 1.8 cm^2 CHELITA(V,A) - 1.8 cm^2 CHELITA(V,D) - 1.8 cm^2 LVOT max gradient - 5.9 mmHg LV V1 mean PG - 3 mmHg LVOT max bee - 121.3 cm/sec LV V1 mean - 79.8 cm/sec LV V1 VTI - 25 cm SV(Ao) - 333 ml SI(Ao) - 140.8 ml/m^2 SV(LVOT) - 109.9 ml SI(LVOT) - 46.5 ml/m^2 PA V2 max - 173.7 cm/sec PA max PG - 12.1 mmHg Conclusion The left ventricle is mildly dilated. Ejection Fraction = 40-45%. Abnormal (paradoxical) septal motion consistent with LBBB. The right ventricle is normal in size and function. The left atrium is mildly dilated. S/p [id number] TAVR with 26 mm Evolut FX (within 25 mm Magna, post dilated with 23 mm True balloon) on 01/08/23. Well-seated, normally functioning aortic prosthesis. No paravalvular leak. The peak aortic valve velocity 3.1 m/s. Aortic mean pressure gradient= 18 mmHg. VTI ratio 0.39. There is mild mitral regurgitation. InterpretingPhysician:Interpreting Physician: Timothy Monroe,electronically signed on 2023-01-10 16:37:24.54 Yudy Cruz [facility] ECHOCARDIOLOGY ORD ERABLES * XRAY CHEST 1 VIEW (01/09/2023 4:36 AM EDT) Anatomical Region Laterality Modality Chest Digital Radiogra phy 01/09/2023 7:48 AM EDT Impressions 01/09/2023 7:49 AM EDT IMPRESSION: Kinking of right IJ venous sheath. Persistent bilateral pulmonary opacities. Reading Doctor: Hugh Salcido Electronic Signature by: Hugh Salcido Narrative 01/09/2023 7:49 AM EDT Procedure(s): XRAY CHEST 1 VIEW Clinical History: ??s/p cardiac surgery ??s/p cardiac surgery Findings: ??Single view of the chest demonstrates cardiomegaly. Patient status post median sternotomy. Bilateral pulmonary opacities predominantly in the upper lobes unchanged. There is a calculated no right IJ venous sheath. Procedure Note Hugh Salcido MD - 01/09/2023 Procedure(s): XRAY CHEST 1 VIEW Clinical History: s/p cardiac surgery s/p cardiac surgery Findings: Single view of the chest demonstrates cardiomegaly. Patientstatus post median sternotomy. Bilateral pulmonary opacities predominantlyin the upper lobes unchanged. There is a calculated no right IJ venoussheath. IMPRESSION IMPRESSION: Kinking of right IJ venous sheath. Persistent bilateralpulmonary opacities. Reading Doctor: Hugh Salcido Electronic Signature by: Hugh Salcido Anam Lewis PA-C RADIOLOGY DIAGN OSTIC ORDERABLES * (ABNORMAL) BLOOD GAS, ARTERIAL (01/08/2023 3:18 PM EDT) Only the most recent of5 resultswithin the time period is included. pH, Arterial 7.39 7.37 - 7.47 01/08/2023 3:34 PM EDT [facility] (ACCREDITED BY [facility] [employer] [facility]) PCO2, Arterial 44(H) 31 - 42 mm Hg 01/08/2023 3:34 PM EDT [facility] (ACCREDITED BY [facility] [employer] [facility] [employer] [facility]) PO2, Arterial 80 80 - 90 mm Hg 01/08/2023 3:34 PM EDT [facility] (ACCREDITED BY [facility] [employer] [facility] [employer] [facility]) Bicarbonate (HCO3), Arterial 25 20 - 25 mmol/L 01/08/2023 3:34 PM EDT [facility] (ACCREDITED BY [facility] [employer] [facility] [employer] [facility]) O2 Saturation, Arterial 97 94 - 97 % 01/08/2023 3:34 PM EDT [facility] (ACCREDITED BY [facility] [employer] [facility] [employer] [facility]) Base Excess, Arterial 1.2 -3.0 - 3.0 mmol/L 01/08/2023 3:34 PM EDT [facility] (ACCREDITED BY [facility] [employer] [facility] [employer] [facility]) O2 Therapy, Liters (FIO2 L) 6 L 01/08/2023 3:34 PM EDT [facility] (ACCREDITED BY [facility] [employer] [facility] [employer] [facility]) Blood ARTERIAL STRUCTURE / Unknown Arterial Puncture / Unknown 01/08/2023 3:18 PM EDT 01/08/2023 3:30 PM EDT Anam Lewis PA-C LAB BLOOD ORDER [place] [facility] (ACCREDITED BY [facility] [employer] [facility] [employer]) [address] [id number] * XRAY CHEST 1 VIEW (01/08/2023 1:09 PM EDT) Anatomical Region Laterality Modality Chest Digital Radiogra phy 01/08/2023 1:15 PM EDT Impressions 01/08/2023 1:33 PM EDT IMPRESSION: Increase in density in right upper lobe airspace opacity and to a slight degree left upper lobe as well. These are concerning for pneumonitis versus asymmetric pulmonary edema. Cardiomegaly and small pleural effusions bilaterally. Reading Doctor: Jr Grider Electronic Signature by: Jr Grider Narrative 01/08/2023 1:33 PM EDT Procedure(s): XRAY CHEST 1 VIEW Clinical History: ??Post-Op ??Post-Op Findings: ?? Portable chest at 1305 hours. Endotracheal tube is approximately 2 cm above the josiane. Since 01/03/2023 there is increase right upper lobe airspace opacity and also left upper lobe airspace opacity. Small bilateral pleural effusions present. Cardiomegaly. Degenerative changes in thoracic spine. Procedure Note Jr Grider MD - 01/08/2023 Procedure(s): XRAY CHEST 1 VIEW Clinical History: Post-Op Post-Op Findings: Portable chest at 1305 hours. Endotracheal tube is approximately 2 cmabove the josiane. Since 01/03/2023 there is increase right upper lobeairspace opacity and also left upper lobe airspace opacity. Smallbilateral pleural effusions present. Cardiomegaly. Degenerative changes inthoracic spine. IMPRESSION IMPRESSION: Increase in density in right upper lobe airspace opacity andto a slight degree left upper lobe as well. These are concerning forpneumonitis versus asymmetric pulmonary edema. Cardiomegaly and smallpleural effusions bilaterally. Reading Doctor: Jr Grider Electronic Signature by: Jr Grider Anam Lewis PA-C RADIOLOGY DIAGN OSTIC ORDERABLES * (ABNORMAL) ACT (SCREEN) LOW RANGE (01/08/2023 11:38 AM EDT) Only the most recent of3 resultswithin the time period is included. Act (Screen) Low Range 195(H) 75 - 169 sec 01/17/2023 9:45 AM EDT [facility] (ACCREDITED BY [facility] [employer] [facility] [employer] [facility]) Blood BLOOD / Unknown 01/08/2023 1 1:38 AM EDT 01/17/2023 9:45 AM EDT Abdoulaye Canales MD LAB POC UNSOLICIT ED ORDERABLES [facility] (ACCRED[facility] BY [facility] [employer]) [address] [place] [address] * (ABNORMAL) [facility] ABG PLUS (01/08/2023 11:34 AM EDT) Only the most recent of2 resultswithin the time period is included. pH, Arterial 7.37 7.37 - 7.47 01/08/2023 11:30 AM EDT [facility] (ACCREDITED BY [facility] [employer]) PCO2, Arterial 48(H) 31 - 42 mm Hg 01/08/2023 11:30 AM EDT [facility] (ACCREDITED BY [facility] [employer]) PO2, Arterial 184(H) 80 - 90 mm Hg 01/08/2023 11:30 AM T [facility] (ACCREDITED BY [facility] [employer]) Bicarbonate (HCO3), Arterial 28(H) 20 - 25 mmol/L 01/08/2023 11:30 AM T [facility] (ACCREDITED BY [facility] [employer]) O2 Saturation, Arterial 100 94 - 100 % 01/08/2023 11:30 AM T [facility] (ACCREDITED BY [facility] [employer]) Base Excess, Arterial 2.2 -3.0 - 3.0 mmol/L 01/08/2023 11:30 AM EDT [facility] (ACCREDITED BY [facility] [employer]) [facility] [place] Sodium 135 135 - 145 mEq/L 01/08/2023 11:30 AM EDT [facility] (ACCREDITED BY [facility] [employer]) Heart Inst. Potassium 3.0(L) 3.5 - 5.1 mEq/L 01/08/2023 11:30 AM EDT [facility] (ACCREDITED BY [facility] [employer]) Heart Inst. Glucose 146(H) 70 - 105 mg/dL 01/08/2023 11:30 AM T [facility] (ACCREDITED BY [facility]) Ionized Calcium 4.2(L) 4.5 - 5.3 mg/dL 01/08/2023 11:30 AM EDT [facility] (ACCREDITED BY [facility]) Hemoglobin 9.2(L) 13.0 - 18.0 g/dL 01/08/2023 11:30 AM EDT [facility] (ACCREDITED BY [facility] [employer]) Hematocrit 28.2(L) 40.0 - 52.0 % 01/08/2023 11:30 AM EDT [facility] (ACCREDITED BY [facility] [employer]) Blood ARTERIAL STRUCTURE / Unknown 01/08/2023 11:34 AM EDT 01/08/2023 11:30 AM EDT Anam Winchester MD LAB POC UNSOLICIT ED ORDERABLES [facility] (ACCREDITED BY [facility]) [address] [place] [address] * RED BLOOD CELLS (SET-UP) (PATIENT WT > 30KG) (01/08/2023 7:09 AM EDT) PRODUCT CODE [id number] 01/11/2023 12:20 AM EDT [facility] ([facility] BY [facility] [employer] ) UNIT NUMBER [id number] 01/12/20 12:20 AM EDT [facility] ([facility] BY [facility] [employer] [facility] [employer] ) BLOOD TYPE, ABO A 01/11/2023 12:20 AM T [facility] ([facility] BY [facility] [employer] [facility] [employer] ) BLOOD TYPE, RH POS 01/11/2023 12:20 AM EDT [facility] ([facility] BY [facility] [employer] [facility] [employer] ) CROSSMATCH STATUS Compatible 01/08/2023 1:13 PM EDT [facility] ([facility] BY [facility] [employer] [facility] [employer] ) UNIT STATUS RE 01/11/2023 12:20 AM EDT [facility] ([facility] BY [facility] [employer] [facility] [employer] ) EXPIRATION [id number] 01/11/2023 12:20 AM T [facility] ([facility] BY [facility] [employer] [facility] [employer] ) BLOOD TYPE BARCODE [id number] 01/11/2023 12:20 AM EDT [facility] ([facility] BY [facility] [employer] ) PRODUCT CODE [id number] 01/11/2023 12:20 AM EDT [facility] (ACCREDITED BY [facility] [employer] ) UNIT NUMBER [id number] 01/12/20 12:20 AM EDT [facility] (ACCREDITED BY [facility] [employer] ) BLOOD TYPE, ABO A 01/11/2023 12:20 AM EDT [facility] (ACCREDITED BY [facility] [employer] ) BLOOD TYPE, RH POS 01/11/2023 12:20 AM EDT [facility] (ACCREDITED BY [facility] [employer] ) CROSSMATCH STATUS Compatible 01/08/2023 1:13 PM EDT [facility] (ACCREDITED BY [facility] [employer] ) UNIT STATUS RE 01/11/2023 12:20 AM EDT [facility] (ACCREDITED BY [facility] [employer] ) EXPIRATION [id number] 01/11/2023 12:20 AM EDT [facility] (ACCREDITED BY [facility] [employer] ) BLOOD TYPE BARCODE [id number] 01/11/2023 12:20 AM T [facility] (ACCREDITED BY [facility] [employer] ) Tania Hartley MD LAB BLOOD BANK OR ODUCT ORDERABLES [facility] (ACCREDITED BY [facility] [employer]) [address] [phone] * (ABNORMAL) PT (PROTHROMBIN TIME) WITH INR (01/08/2023 4:39 AM EDT) Only the most recent of3 resultswithin the time period is included. PT 19.2(H) 10.2 - 12.9 seconds 01/08/2023 5:01 AM EDT [facility] (ACCREDITED BY [facility] [employer]) INR 1.6 01/08/2023 5:01 AM EDT [facility] (ACCREDITED BY [facility] [employer]) Comment:STD Therapeutic Rang e 2-3 Blood BLOOD / Unknown Venipuncture / Unknown 01/08/2023 4:39 AM EDT 01/08/2023 4:44 AM EDT Michael Hernandez DO LAB BLOOD ORDERAB LES [facility] (ACCREDITED BY [facility] [employer]) [address] [place] [address] * TYPE & SCREEN (01/07/2023 5:37 AM EDT) ABO GROUP AB 01/07/2023 7:38 AM EDT [facility] (ACCREDITED BY [facility] [employer]) RH TYPE Positive 01/07/2023 7:38 AM EDT [facility] (ACCREDITED BY [facility] [employer]) AB SCREEN Negative 01/07/2023 7:38 AM EDT [facility] (ACCREDITED BY [facility] [employer]) Blood BLOOD / Unknown Venipuncture / Unknown 01/07/2023 5:37 AM EDT 01/07/2023 5:41 AM EDT Sparkle Rowe José Manuel [facility]- LAB BLOOD BA NK TEST ORDERABLES [facility] (ACCREDITED BY [facility] [employer]) [address] [place], [place] [id number], * VAT US GUIDED PERIPHERAL IV PLACEMENT (01/06/2023 11:00 PM EDT) Narrative Model, [employer] - 01/06/2023 11:03 PM EDT Impression: The Peripheral IV line was placed by the Vascular Access Team (VAT). Please see progress notes for full report. Devon Perkins PA RADIOLOGY VAT ORDER [place] * POTASSIUM, WHOLE BLOOD (01/06/2023 4:06 AM EDT) Potassium 3.6 3.5 - 4.5 mEq/L 01/06/2023 4:16 AM EDT [facility] (ACCREDITED BY [facility] [employer]) Blood BLOOD / Unknown Venipuncture / Unknown 01/06/2023 4:06 AM EDT 01/06/2023 4:11 AM EDT Devon Perkins PA LAB BLOOD ORDERABLE S Performing Organization Address City/[facility]/ZIP Co de Phone Number [facility] (ACCREDITED BY [facility] [employer]) [address] [place] [address] * PTT (01/05/2023 5:49 AM EDT) Only the most recent of2 resultswithin the time period is included. [facility] PTT 33.1 25.1 - 36.5 seconds 01/05/2023 6:31 AM EDT [facility] (ACCREDITED BY [facility] [employer]) Blood BLOOD / Unknown Venipuncture / Unknown 01/05/2023 5:49 AM EDT 01/05/2023 5:52 AM EDT Sparkle Georges [facility] LAB BLOOD OR DERABLES Performing Organization Address [facility] Co de Phone Number [facility] (ACCREDITED BY [facility] [employer]) [address] [place] [id number] * MRSA ADMIT SCREEN (01/04/2023 6:43 PM EDT) [facility] MRSA DNA (PCR) Negative Negative 01/05/2023 12:12 PM EDT [facility] (ACCREDITED BY [facility] [employer]) Comment: No MRSA DNA detected. A negative result does not preclude nasal colonization. Swab BOTH ANTERIOR NARES / Unknown Non-blood Collection / Unknown 01/04/2023 6:43 PM EDT 01/04/2023 6:55 PM EDT Narrative [facility] (ACCREDITED BY [facility] [employer]) - 01/05/2023 12:12 PM EDT The BD MAX? ? MRSA XT assay is a real-time PCR test intended for the qualitative detection of DNA from MRSA. Sparkle Georges [facility] LAB MICROBIO LOGY ORDERABLES Performing Organization Address City/[facility]/ZIP Co de Phone Number [facility] (ACCREDITED BY [facility] [employer]) [address] [place] [address] * LACTIC ACID (01/03/2023 12:45 PM EDT) Only the most recent of4 resultswithin the time period is included. Lactic Acid 1.5 0.5 - 2.0 mmol/L 01/03/2023 1:05 PM EDT [facility] (ACCREDITED BY [facility] [employer]) Blood ARTERIAL STRUCTURE / Unknown Arterial Puncture / Unknown 01/03/2023 12:45 PM EDT 01/03/2023 12:56 PM EDT Jeyson Richard MD LAB BLOOD ORDERABL ES Performing Organization Address [facility]/ZIP Co de Phone Number [facility] (ACCREDITED BY [facility] [employer]) [address] [place] [phone] * LEGIONELLA ANTIGEN, URINE (01/03/2023 11:50 AM EDT) Legionella Ag, U Negative Negative 01/05/20 23 2:08 PM EDT [facility] [employer] Comment: Negative for L. pneumophila serogroup 1 antigen, suggesting no recent or current infection. ??Infection due to Legionella cannot be ruled out since other serogroups and species may cause disease, antigen may not be present in urine in early infection, and the level of antigen present in the urine may be below the detection limit of the test. ADDITIONAL INFORMATION This assay was performed using the FDA-cleared BinaxNOW Legionella Urinary Antigen Test, a rapid immunochromatographic assay. Test Performed by: [facility] [address] [place] [address] Site Identification Specialist: Aroldo West M.D. Ph.D.; CLIA# [id number] Urine URETHRAL STRUCTURE / Unknown Non-blood Collection / Unknown 01/03/2023 11:50 AM EDT 01/03/2023 11:54 AM EDT Jose Montes MD LAB URINE ORDERAB LES [facility] [address] [place] [address], * S. PNEUMONIAE AG,URINE (01/03/2023 11:50 AM EDT) S pneumoniae Antigen Negative Negative 01/03/2023 12:29 PM EDT [facility] (ACCREDITED BY [facility] [employer]) Urine URETHRAL STRUCTURE / Unknown Non-blood Collection / Unknown 01/03/2023 11:50 AM EDT 01/03/2023 11:54 AM EDT Jose Montes MD LAB MICROBIOLOGY ORDERABLES Performing Organization Address City/[facility]/ZIP Co de Phone Number [facility] (ACCREDITED BY [facility] [employer]) [address] [place] [address] * XRAY CHEST 1 VIEW (01/03/2023 10:09 AM EDT) Anatomical Region Laterality Modality Chest Digital Radiogra phy 01/03/2023 4:35 PM EDT Impressions 01/03/2023 4:36 PM EDT Findings and impression: Stable bilateral pulmonary opacities. Stable small bilateral pleural effusions. No pneumothorax. Stable enlargement of the cardiac silhouette. Reading Doctor: Skylar Robbins Electronic Signature by: Skylar Robbins Narrative 01/03/2023 4:36 PM EDT Exam: Single view of the chest. Date of exam: 01/03/2023 at 1006. Indications: ?? Hypoxia Comparison: 01/01/2023. Procedure Note Tariq Robbins MD - 01/03/2023 Exam: Single view of the chest. Date of exam: 01/03/2023 at 1006. Indications: Hypoxia Comparison: 01/01/2023. IMPRESSION Findings and impression: Stable bilateral pulmonary opacities. Stablesmall bilateral pleural effusions. No pneumothorax. Stable enlargement ofthe cardiac silhouette. Reading Doctor: Skylar Robbins Electronic Signature by: Skylar Robbins Jose Montes MD RADIOLOGY DIAGNOS TIC ORDERABLES * (ABNORMAL) TROPONIN I (01/03/2023 12:38 AM EDT) Only the most recent of8 resultswithin the time period is included. Troponin I 12.26(HH) <=0.03 ng/mL 01/03/2023 1:30 AM EDT [facility] (ACCREDITED BY [facility] [employer]) Blood BLOOD / Unknown Venipuncture / Unknown 01/03/2023 12:38 AM EDT 01/03/2023 12:47 AM EDT Miller Cooper MD LAB BLOOD ORDERABLE S [facility] (ACCREDITED BY [facility] [employer]) [address] [place] [address] * VAT US GUIDED PERIPHERAL IV PLACEMENT (01/01/2023 11:55 PM EDT) Narrative Model, [employer] - 01/02/2023 1:53 AM EDT Impression: The Peripheral IV line was placed by the Vascular Access Team (VAT). Please see progress notes for full report. Jeyson Richard MD RADIOLOGY VAT ELLIOTT DOMINGUEZ * XRAY CHEST 1 VIEW (01/01/2023 8:04 AM EDT) Anatomical Region Laterality Modality Chest Digital Radiogra phy 01/01/2023 8:13 AM EDT Impressions 01/01/2023 8:17 AM EDT Findings/impression: Progressive heterogeneous right upper lobe airspace opacity, likely pneumonia with differential to include asymmetric pulmonary edema. No other interval changes. Stable cardiomegaly and pulmonary vascular congestion. No large pleural effusions. Reading Doctor: Ean Berumen Electronic Signature by: Ean Berumen Narrative 01/01/2023 8:17 AM EDT History: Shortness of breath. Comparison: Chest radiograph performed on 12/28/2022. Chest CT performed on 12/30/2022. Technique: Portable AP chest radiograph. Procedure Note Ean Berumen MD - 01/01/2023 History: Shortness of breath. Comparison: Chest radiograph performed on 12/28/2022. Chest CT performed on12/30/2022. Technique: Portable AP chest radiograph. IMPRESSION Findings/impression: Progressive heterogeneous right upper lobe airspace opacity, likelypneumonia with differential to include asymmetric pulmonary edema. No other interval changes. Stable cardiomegaly and pulmonary vascularcongestion. No large pleural effusions. Reading Doctor: Ean Berumen Electronic Signature by: Ean Berumen Gaurav Lin MD RADIOLOGY DIAGNOST IC ORDERABLES * (ABNORMAL) MANUAL DIFFERENTIAL (12/31/2022 4:17 AM EDT) Neutrophils (%) 79 % 6:04 AM EDT [facility] (ACCRED[facility] BY [facility] [employer] [facility] [employer]) Bands (%) 0 % 12/31/2022 6:04 AM EDT [facility] (ACCREDITED BY [facility] [employer]) Lymphocytes (%) 10 % 6:04 AM EDT [facility] (ACCREDITED BY [facility] [employer]) Monocytes (%) 5 % 12/31/2022 6:04 AM EDT [facility] (ACCREDITED BY [facility] [employer]) Eosinophils (%) 6 % 3 6:04 AM EDT [facility] (ACCREDITED BY [facility] [employer]) Basophils (%) 0 % 12/31/2022 6:04 AM EDT [facility] (ACCREDITED BY [facility] [employer]) Absolute Neutrophils/Band s (#) 4.08 1.80 - 7.70 k/uL 12/31/2022 6:04 AM EDT [facility] (ACCREDITED BY [facility] [employer]) Absolute Lymphocytes (#) 0.52(L) 1.00 - 4.80 k/uL 12/31/2022 6:04 AM EDT [facility] (ACCREDITED BY [facility] [employer]) Absolute Monocytes (#) 0.26 0.00 - 0.80 k/uL 12/31/2022 6:04 AM EDT [facility] (ACCREDITED BY [facility] [employer]) Absolute Eosinophils (#) 0.31 0.00 - 0.50 k/uL 12/31/2022 6:04 AM EDT [facility] (ACCREDITED BY [facility] [employer]) Absolute Basophils (#) 0.00 0.00 - 0.20 k/uL 12/31/2022 6:04 AM EDT [facility] (ACCREDITED BY [facility] [employer]) Blood BLOOD / Unknown Venipuncture / Unknown 12/31/2022 4:17 AM EDT 12/31/2022 4:38 AM EDT Miller Cooper MD LAB BLOOD ORDERABLE S [facility] (ACCREDITED BY [facility] [employer]) [address] [place] [id number] * CTA ABDOMEN PELVIS W & W/O IV CONTRAST (12/30/2022 10:13 AM EDT) Anatomical Region Laterality Modality Abdomen Computed Tomogra phy 12/30/2022 11:3 8 AM EDT Impressions 12/30/2022 12:03 PM EDT IMPRESSION: 1. Mildly enlarged heart. Diffuse coronary artery atherosclerosis status post coronary artery bypass. Previous aortic valve repair. 2. There is aortic and iliac atherosclerosis without evidence of aneurysm or significant aortoiliac stenosis. There is mild to moderate stenosis at [...] hip arthroplasty. Findings discussed with Dr. Engle. Reading Doctor: Rupali Li Electronic Signature by: Rupali Li Narrative 12/30/2022 12:03 PM EDT CLINICAL HISTORY: ??gated CTA per TAVR protocol TECHNIQUE: Helical CT of the chest, abdomen and pelvis was performed following IV contrast administration. Noncontrast images of the heart. Gated CT of the heart. 75 mL Visipaque 320 administered via peripheral IV. Multiplanar reformatted images were provided. Maximum intensity projection images provided. COMPARISON: No comparison. FINDINGS: No suspicious thyroid gland abnormality. The thoracic aorta is diffusely atherosclerotic. Coronary artery atherosclerosis. Status post median sternotomy. Aortic valve repair. Coronary artery bypass. The heart is top normal in size. No pericardial effusion. Minimal pleural effusions bilaterally. There are top normal size mediastinal nodes. No bulky adenopathy. Evaluation of the lung parenchyma shows emphysema. Left basilar opacity is likely atelectasis. There are groundglass and minimal ill-defined alveolar opacities within the right lung and minimal right basilar atelectasis. Somewhat more focal groundglass nodule right upper lobe measures 13 mm. Thoracic spondylosis. No acute thoracic osseous abnormality is identified. The celiac artery is patent. 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 ELODIA small but patent. No evidence of abdominal aortic aneurysm. The iliac arteries are atherosclerotic and somewhat small. The right common iliac artery minimum diameter is approximately 6 mm. Bilateral external iliac arteries are patent without significant stenosis. No suspicious liver mass. Cholelithiasis. No significant biliary ductal dilatation. The pancreas, spleen and adrenal glands show no abnormality. Kidneys enhance symmetrically. The right kidney is somewhat small compared to the left. There are bilateral renal lesions which appear partly to be cysts on the left. An exophytic lesion posterior left lower pole measuring 35 mm and 50 Hounsfield units is indeterminate. 11 mm lesion lateral mid right kidney measures up to 76 Hounsfield units and is indeterminate. No significant upper abdominal adenopathy. No evidence of small bowel wall thickening or obstruction. Unremarkable appendix. Partial colectomy with sigmoid anastomosis. Diverticulosis. Normal size. Bladder unremarkable. Bilateral hip arthroplasty. No acute osseous abnormality is identified. Procedure Note Rupali Li MD - 12/30/2022 CLINICAL HISTORY: gated CTA per TAVR protocol TECHNIQUE: Helical CT of the chest, abdomen and pelvis was performedfollowing IV contrast administration. Noncontrast images of the heart.Gated CT of the heart. 75 mL Visipaque 320 administered via peripheral IV.Multiplanar reformatted images were provided. Maximum intensity projectionimages provided. COMPARISON: No comparison. FINDINGS: No suspicious thyroid gland abnormality. The thoracic aorta isdiffusely atherosclerotic. Coronary artery atherosclerosis. Status postmedian sternotomy. Aortic valve repair. Coronary artery bypass. The heartis top normal in size. No pericardial effusion. Minimal pleural effusionsbilaterally. There are top normal size mediastinal nodes. No bulkyadenopathy. Evaluation of the lung parenchyma shows emphysema. Leftbasilar opacity is likely atelectasis. There are groundglass and minimalill-defined alveolar opacities within the right lung and minimal rightbasilar atelectasis. Somewhat more focal groundglass nodule right upperlobe measures 13 mm. Thoracic spondylosis. No acute thoracic osseousabnormality is identified. The celiac artery is patent. There is mild to moderate stenosis at theorigin of the SMA and right renal artery. ELODIA small but patent. Noevidence of abdominal aortic aneurysm. The iliac arteries areatherosclerotic and somewhat small. The right common iliac artery minimumdiameter is approximately 6 mm. Bilateral external iliac arteries arepatent without significant stenosis. No suspicious liver mass. Cholelithiasis. No significant biliary ductaldilatation. The pancreas, spleen and adrenal glands show no abnormality.Kidneys enhance symmetrically. The right kidney is somewhat small comparedto the left. There are bilateral renal lesions which appear partly to becysts on the left. An exophytic lesion posterior left lower pole [id number] mm and 50 Hounsfield units is indeterminate. 11 mm lesion lateral midright kidney measures up to 76 Hounsfield units and is indeterminate. Nosignificant upper abdominal adenopathy. No evidence of small bowel wallthickening or obstruction. Unremarkable appendix. Partial colectomy withsigmoid anastomosis. Diverticulosis. Normal size. Bladder unremarkable.Bilateral hip arthroplasty. No acute osseous abnormality is identified. IMPRESSION IMPRESSION: 1. Mildly enlarged heart. Diffuse coronary artery atherosclerosis statuspost coronary artery bypass. Previous aortic valve repair. 2. There is aortic and iliac atherosclerosis without evidence of aneurysmor significant aortoiliac stenosis. There is mild to moderate stenosis atthe origin of the SMA and suspected chronic right renal artery stenosiswith some asymmetric right renal atrophy. 3. Minimal pleural effusions and dependent atelectasis bilaterally.Emphysema and predominantly right sided alveolar and groundglass pulmonaryopacities suspected to reflect asymmetric edema in this setting. 4. More focal groundglass nodule within the right upper lobe measuring 13mm. Fleischner Criteria: Greater than 8mm ground-glass single pulmonarynodule. Recommend chest CT in 6 to 12 months. 5. Few suspected renal cysts and bilateral indeterminate hyperdense renallesions which may be complex cysts though small solid lesions notexcluded. Follow-up dedicated pre and postcontrast renal imagingrecommended. 6. Cholelithiasis. 7. Diverticulosis. Partial colectomy. 8. Bilateral hip arthroplasty. Findings discussed with Dr. Engle. Reading Doctor: Rupali Li Electronic Signature by: Rupali Li Sparkle Rowe José Manuel [facility] RADIOLOGY CT ORDERABLES * CTA CHEST W & W/O IV CONTRAST (12/30/2022 10:13 AM EDT) Anatomical Region Laterality Modality Chest Computed Tomogra phy 12/30/2022 11:3 8 AM EDT Impressions 12/30/2022 12:03 PM EDT IMPRESSION: 1. Mildly enlarged heart. Diffuse coronary artery atherosclerosis status post coronary artery bypass. Previous aortic valve repair. 2. There is aortic and iliac atherosclerosis without evidence of aneurysm or significant aortoiliac stenosis. There is mild to moderate stenosis at [...] hip arthroplasty. Findings discussed with Dr. Engle. Reading Doctor: Rupali Li Electronic Signature by: Rupali Li Narrative 12/30/2022 12:03 PM EDT CLINICAL HISTORY: ??gated CTA per TAVR protocol TECHNIQUE: Helical CT of the chest, abdomen and pelvis was performed following IV contrast administration. Noncontrast images of the heart. Gated CT of the heart. 75 mL Visipaque 320 administered via peripheral IV. Multiplanar reformatted images were provided. Maximum intensity projection images provided. COMPARISON: No comparison. FINDINGS: No suspicious thyroid gland abnormality. The thoracic aorta is diffusely atherosclerotic. Coronary artery atherosclerosis. Status post median sternotomy. Aortic valve repair. Coronary artery bypass. The heart is top normal in size. No pericardial effusion. Minimal pleural effusions bilaterally. There are top normal size mediastinal nodes. No bulky adenopathy. Evaluation of the lung parenchyma shows emphysema. Left basilar opacity is likely atelectasis. There are groundglass and minimal ill-defined alveolar opacities within the right lung and minimal right basilar atelectasis. Somewhat more focal groundglass nodule right upper lobe measures 13 mm. Thoracic spondylosis. No acute thoracic osseous abnormality is identified. The celiac artery is patent. 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 ELODIA small but patent. No evidence of abdominal aortic aneurysm. The iliac arteries are atherosclerotic and somewhat small. The right common iliac artery minimum diameter is approximately 6 mm. Bilateral external iliac arteries are patent without significant stenosis. No suspicious liver mass. Cholelithiasis. No significant biliary ductal dilatation. The pancreas, spleen and adrenal glands show no abnormality. Kidneys enhance symmetrically. The right kidney is somewhat small compared to the left. There are bilateral renal lesions which appear partly to be cysts on the left. An exophytic lesion posterior left lower pole measuring 35 mm and 50 Hounsfield units is indeterminate. 11 mm lesion lateral mid right kidney measures up to 76 Hounsfield units and is indeterminate. No significant upper abdominal adenopathy. No evidence of small bowel wall thickening or obstruction. Unremarkable appendix. Partial colectomy with sigmoid anastomosis. Diverticulosis. Normal size. Bladder unremarkable. Bilateral hip arthroplasty. No acute osseous abnormality is identified. Procedure Note Rupali Li MD - 12/30/2022 CLINICAL HISTORY: gated CTA per TAVR protocol TECHNIQUE: Helical CT of the chest, abdomen and pelvis was performedfollowing IV contrast administration. Noncontrast images of the heart.Gated CT of the heart. 75 mL Visipaque 320 administered via peripheral IV.Multiplanar reformatted images were provided. Maximum intensity projectionimages provided. COMPARISON: No comparison. FINDINGS: No suspicious thyroid gland abnormality. The thoracic aorta isdiffusely atherosclerotic. Coronary artery atherosclerosis. Status postmedian sternotomy. Aortic valve repair. Coronary artery bypass. The heartis top normal in size. No pericardial effusion. Minimal pleural effusionsbilaterally. There are top normal size mediastinal nodes. No bulkyadenopathy. Evaluation of the lung parenchyma shows emphysema. Leftbasilar opacity is likely atelectasis. There are groundglass and minimalill-defined alveolar opacities within the right lung and minimal rightbasilar atelectasis. Somewhat more focal groundglass nodule right upperlobe measures 13 mm. Thoracic spondylosis. No acute thoracic osseousabnormality is identified. The celiac artery is patent. There is mild to moderate stenosis at theorigin of the SMA and right renal artery. ELODIA small but patent. Noevidence of abdominal aortic aneurysm. The iliac arteries areatherosclerotic and somewhat small. The right common iliac artery minimumdiameter is approximately 6 mm. Bilateral external iliac arteries arepatent without significant stenosis. No suspicious liver mass. Cholelithiasis. No significant biliary ductaldilatation. The pancreas, spleen and adrenal glands show no abnormality.Kidneys enhance symmetrically. The right kidney is somewhat small comparedto the left. There are bilateral renal lesions which appear partly to becysts on the left. An exophytic lesion posterior left lower pole [id number] mm and 50 Hounsfield units is indeterminate. 11 mm lesion lateral midright kidney measures up to 76 Hounsfield units and is indeterminate. Nosignificant upper abdominal adenopathy. No evidence of small bowel wallthickening or obstruction. Unremarkable appendix. Partial colectomy withsigmoid anastomosis. Diverticulosis. Normal size. Bladder unremarkable.Bilateral hip arthroplasty. No acute osseous abnormality is identified. IMPRESSION IMPRESSION: 1. Mildly enlarged heart. Diffuse coronary artery atherosclerosis statuspost coronary artery bypass. Previous aortic valve repair. 2. There is aortic and iliac atherosclerosis without evidence of aneurysmor significant aortoiliac stenosis. There is mild to moderate stenosis atthe origin of the SMA and suspected chronic right renal artery stenosiswith some asymmetric right renal atrophy. 3. Minimal pleural effusions and dependent atelectasis bilaterally.Emphysema and predominantly right sided alveolar and groundglass pulmonaryopacities suspected to reflect asymmetric edema in this setting. 4. More focal groundglass nodule within the right upper lobe measuring 13mm. Fleischner Criteria: Greater than 8mm ground-glass single pulmonarynodule. Recommend chest CT in 6 to 12 months. 5. Few suspected renal cysts and bilateral indeterminate hyperdense renallesions which may be complex cysts though small solid lesions notexcluded. Follow-up dedicated pre and postcontrast renal imagingrecommended. 6. Cholelithiasis. 7. Diverticulosis. Partial colectomy. 8. Bilateral hip arthroplasty. Findings discussed with Dr. Engle. Reading Doctor: Rupali Li Electronic Signature by: Rupali Li Sparkle Georges [facility] RADIOLOGY CT ORDERABLES * CULTURE, BLOOD (12/28/2022 6:00 PM EDT) Only the most recent of2 resultswithin the time period is included. Blood Culture No growth 5 days 01/02/2023 7:31 PM EDT [facility] ([facility] [employer] [facility] [employer]) Blood BLOOD / Unknown Venipuncture / Unknown 12/28/2022 6:00 PM EDT 12/28/2022 6:28 PM EDT Natividad Hatch [facility] MICROBIOLOG Y ORDERABLES [facility] ([facility]CR[facility] [employer] [facility]) [address] [place] [address] * (ABNORMAL) OXYHEMOGLOBIN-MIXED VENOUS-POC (12/28/2022 3:56 PM EDT) Only the most recent of3 resultswithin the time period is included. Oxyhemoglobin- Mx Venous 93.1(H) 60 - 80 % 12/28/2022 4:54 PM EDT [facility] ([facility] [employer] [facility]) Blood BLOOD / Unknown 12/28/2022 3 :56 PM EDT 12/28/2022 4:54 PM EDT Ko Feliciano DO LAB POC UNSOLICITED ORDERABLES Performing Organization Address City/[facility] Co de Phone Number [facility] ([facility] [employer]) [address] [place] [phone] * XRAY CHEST 1 VIEW (12/28/2022 2:18 PM EDT) Anatomical Region Laterality Modality Chest Digital Radiogra phy 12/28/2022 2:30 PM EDT Impressions 12/28/2022 2:32 PM EDT IMPRESSION: Pulmonary vascular congestion and edema. Possible minimal bilateral pleural effusions. Reading Doctor: Fatou Gomez Electronic Signature by: Fatou Gomez Narrative 12/28/2022 2:32 PM EDT Exam: Portable chest INDICATION: Pneumonia shock cough COMPARISON: None FINDINGS: There is pulmonary vascular congestion and edema. Blunting of the costophrenic angles may represent minimal effusions. There is evidence of cardiac surgery. Electronic device projects along the left upper lateral chest. There is enlargement of the cardiac silhouette. There is indistinctness and fullness of the hilar vessels. Mediastinum is within normal limit. No acute osseous abnormality. Procedure Note Fatou Gomez DO - 12/28/2022 Exam: Portable chest INDICATION: Pneumonia shock cough COMPARISON: None FINDINGS: There is pulmonary vascular congestion and edema. Blunting ofthe costophrenic angles may represent minimal effusions. There is evidenceof cardiac surgery. Electronic device projects along the left upperlateral chest. There is enlargement of the cardiac silhouette. There isindistinctness and fullness of the hilar vessels. Mediastinum is withinnormal limit. No acute osseous abnormality. IMPRESSION IMPRESSION: Pulmonary vascular congestion and edema. Possible minimalbilateral pleural effusions. Reading Doctor: Fatou Gomez Electronic Signature by: Fatou Gomez Ko Feliciano DO RADIOLOGY DIAGNOSTIC ORDERABLES * (ABNORMAL) LIPID PANEL (12/28/2022 2:17 PM EDT) Cholesterol 100 See Comment mg/dL 12/28/2022 3:03 PM EDT [facility] ([facility]) Comment: CHOLESTEROL REFERENCE RANGES: ??DESIRABLE: <200 mg/dL ??BORDERLINE HIGH: 200-239 mg/dL ??HIGH: >239 mg/dL ?? Triglyceride 67 <=150 mg/dL 12/28/2022 3:03 PM EDT [facility] ([facility]) HDL Cholesterol 27(L) 40 - 60 mg/dL 12/28/2022 3:03 PM T [facility] ([facility]) Comment: HDL Reference Ranges: ?Low: <40 mg/dL ??High: >=60 mg/dL ?? LDL 60 mg/dL 12/28/2022 3:03 PM T [facility]) Comment: LDL Reference Ranges: ?Optimal: <100 mg/dL ??Near or above optimal: 100-129 mg/dL ??Borderline High: 130-159 mg/dL ??High: 160-189 mg/dL ??Very High: >= 190 mg/dL Chol/HDL Ratio 3.7 mg/dL 12/28/2022 3:03 PM T [facility]) Blood BLOOD / Unknown Venipuncture / Unknown 12/28/2022 2:17 PM EDT 12/28/2022 2:22 PM EDT Natividad Chayitojesus manuel Hatch [facility] BLOOD ORDER ROOSEVELT Performing Organization Address [facility]/ZIP Co de Phone Number [facility] ([facility]CR[facility] BY [facility]) [address] [place] [phone] * HEMOGLOBIN A1C (GLYCOSYLATED) (12/28/2022 2:17 PM EDT) Hemoglobin A1C 5.0 4.3 - 5.7 % 12/28/2022 4:59 PM EDT [facility] ([facility]) Est Avg Glucose 97 mg/dL 4:59 PM EDT [facility] BY [facility]) Blood BLOOD / Unknown Venipuncture / Unknown 12/28/2022 2:17 PM EDT 12/28/2022 2:23 PM EDT Narrative [facility] ([facility] [employer]) - 12/28/2022 4:59 PM EDT This assay has been cleared by the FDA to be used as an aid in the diagnosis of diabetes and in identifying patients who may be at risk for developing diabetes. The threshold for diagnosis of diabetes is an HA1c result > or = 6.5%. Natividad Chayitojesus manuel Hatch [facility] BLOOD ORDER ROOSEVELT Performing Organization Address [facility] Co de Phone Number [facility] (ACCREDITED BY [facility]) [address] [place] [phone] * TSH WITH REFLEX TO FREE T4 (12/28/2022 2:17 PM EDT) TSH (High Sensitive) 1.98 0.35 - 4.94 uIU/mL 12/28/2022 3:19 PM EDT [facility] ([facility]) Blood BLOOD / Unknown Venipuncture / Unknown 12/28/2022 2:17 PM EDT 12/28/2022 2:23 PM EDT Natividad Anne Mamie ACNP LAB BLOOD ORDER ROOSEVELT [facility] ([facility]CREDITED BY [facility]) [address] [phone] * (ABNORMAL) COMPREHENSIVE METABOLIC PANEL (12/28/2022 2:17 PM EDT) Sodium 137 136 - 145 mEq/L 12/28/2022 3:03 PM EDT [facility] ([facility] BY [facility]) Potassium 4.5 3.5 - 4.5 mEq/L 12/28/2022 3:03 PM EDT [facility] ([facility] BY [facility]) Chloride 111(H) 98 - 107 mEq/L 12/28/2022 3:03 PM EDT [facility] ([facility] BY [facility]) CO2 13(L) 23 - 31 mEq/L 12/28/2022 3:03 PM EDT [facility] ([facility]) Calcium 8.5 8.4 - 10.2 mg/dL 12/28/2022 3:03 PM T [facility]) Glucose 130(H) 70 - 105 mg/dL 12/28/2022 3:03 PM T [facility]) BUN 57(H) 8 - 26 mg/dL 12/28/2022 3:03 PM T [facility]) Creatinine 1.64(H) 0.72 - 1.25 mg/dL 12/28/2022 3:03 PM T [facility] ([facility]) Glomerular Filtration Rate 43(L) >=59 mL/Min/1.7 3 m2 12/28/2022 3:03 PM T [facility] ([facility] BY [facility]) Protein, Total 6.6 6.2 - 8.1 g/dL 12/28/2022 3:03 PM T [facility] ([facility] BY [facility]) Albumin 3.4 3.2 - 4.6 g/dL 12/28/2022 3:03 PM EDT [facility] ([facility]) Bilirubin, Total 0.8 0.1 - 1.2 mg/dL 12/28/2022 3:03 PM EDT [facility]) Alk Phosphatase 31(L) 40 - 150 U/L 12/28/2022 3:03 PM T [facility] ([facility] BY [facility]) SGOT (AST) 169(H) 5 - 34 U/L 12/28/2022 3:03 PM T [facility] ([facility]) SGPT (ALT) 28 0 - 55 U/L 12/28/2022 3:03 PM T [facility] ([facility] BY [facility]) Anion Gap 13(H) 4 - 12 mEq/L 12/28/2022 3:03 PM T [facility] ([facility]CR[facility] BY [facility]) Bun:Creat Ratio 34.76 3:03 PM T [facility] ([facility]) Osmo (Calc'd) 304 mOsm/kg 12/28/2022 3:03 PM T [facility] ([facility]) Globulin (Calc'd) 3.2 g/dL 12/28/2022 3:03 PM T [facility] ([facility] BY [facility]) A:G Ratio 1.06 12/28/2022 3:03 PM T [facility] ([facility]) Blood BLOOD / Unknown Venipuncture / Unknown 12/28/2022 2:17 PM EDT 12/28/2022 2:22 PM EDT Natividad Hatch [facility] BLOOD ORDER ROOSEVELT [facility] ([facility]CR[facility]) [address] [phone] documented in this encounter Visit Diagnoses Diagnosis NSTEMI (non-ST elevated myocardial infarction) (CMS/HCC) (CMS-HCC) (CMS/HCC) ([facility]) Acute myocardial infarction, subendocardial infarction, episode of care unspecified Acute coronary syndrome (CMS/HCC) (CMS-HCC) (CMS/HCC) ([facility]) Intermediate coronary syndrome Shock (CMS/HCC) (CMS-HCC) (CMS/HCC) ([facility]) Shock, unspecified Cardiogenic shock (CMS/HCC) (CMS-HCC) ([facility]/HCC) ([facility]) Cardiogenic shock Acute on chronic HFrEF (heart failure with reduced ejection fraction) (CMS/HCC) (CMS-HCC) (CMS/HCC) ([facility]) FILIBERTO (acute kidney injury) (CMS/HCC) (CMS-HCC) ([facility]) ([facility]) Acute kidney failure, unspecified Pulmonary edema Pulmonary congestion and hypostasis * Initial Eval - Zac Estrada OTR/Jessica - 01/09/2023 9:40 AM EDT ACUTE OT ASSESSMENT [facility] Date of Assessment: 01/09/2023 Patient Name: Raghu Rosenthal : 1945 Age: 77yrs Sex: Male Admit Date: 12/28/2022 Problem List (Physician/Prescriber generated effective date of this evaluation) Patient Active Problem List Diagnosis Date Noted *(H)01/08/23 TransCatheter Aortic Valve Replacement ([id number], 26 Medtronic Evolut Pro, via the Left Transfemoral Approach) EF 35% 01/08/2023 (H)CKD (chronic kidney disease) stage 3, GFR 30-59 ml/min ([facility]) 01/09/2023 (H)FILIBERTO (acute kidney injury) ([facility]) 01/09/2023 (H)Pulmonary edema 01/09/2023 (H)Cardiogenic shock ([facility]) 01/08/2023 (H)Acute on chronic HFrEF (heart failure with reduced ejection fraction) ([facility]) 01/08/2023 Personal history of transient ischemic attack (TIA), and cerebral infarction without residual deficits 01/07/2023 Vitreous degeneration, right eye 12/29/2022 Thrombocytopenia, unspecified ([facility]) 12/29/2022 Sensorineural hearing loss, bilateral 12/29/2022 Psoriasis with arthropathy ([facility]) 12/29/2022 Arthropathic psoriasis, unspecified ([facility]) 12/29/2022 Posttraumatic stress disorder 12/29/2022 Postsurgical aortocoronary [...] and other eczema 12/29/2022 Chronic rhinitis 12/29/2022 (H)NSTEMI (non-ST elevated myocardial infarction) ([facility]) 12/28/2022 (H)Hypertension 12/28/2022 (H)Hyperlipidemia 12/28/2022 (H)Coronary artery disease 12/28/2022 Diabetes mellitus ([facility]) 05/22/2019 Osteoarthritis of both knees 10/08/2018 Bradycardia 02/21/2018 Nonrheumatic aortic (valve) stenosis 08/19/2013 Subarachnoid hemorrhage ([facility]) 04/22/2012 Sleep apnea 04/22/2012 S/P prosthetic total arthroplasty of the hip 04/22/2012 Pancreatitis 04/22/2012 GERD (gastroesophageal reflux disease) 04/22/2012 Former smoker 04/22/2012 Fatty liver 04/22/2012 Diverticulitis 04/22/2012 Cholelithiasis 04/22/2012 Abdominal panniculus 04/22/2012 Psoriasis 05/05/2011 Cerebellar stroke syndrome 01/22/2011 Medical History (Physician/Prescriber generated effective date of this evaluation) Past Medical History: Diagnosis Date Coronary artery disease Diverticulitis Hyperlipidemia Hypertension Subdural hematoma ([facility]) Patient/Family Goal: To get better. Subjective: Pt states, I'm having trouble thinking. Received sitting upright in chair, at bedside. Pt agreeable to participate in OT session this date. Premorbid Functional Status: Patient was living in the following setting: Home with spouse or significant other Patient's level of function: Independent with self care and Independent with mobility; Pt endorses 1 mechanical fall in past 6 months Patient's prior level of IADL function: Performed most or all IADL independently; Pt independent with driving Patient has and/or used the following DME prior to admission: Rolling walker and Straight cane Patient used the following adaptive equipment for ADL's:None Using the OT-DRIVE model, this patient has been determined to fit into the YELLOW category/ Moderate Risk - degree to which impairments affect fitness to drive must be addressed to determine driving potential now and in the future.. After completing the Occupational Profile and testing, it has been determined that patient's visual, cognitive, perceptual and/or psychomotor skills require additional assessment due to mixed results of strengths and weaknesses that were identified. Additional Driving or Community Mobility Assessments are needed at this time. Driving should not beresumed until pt. Has undergone this additional assessment. Pt. Would benefit from an Outpatient Neuro OT Evaluation for an Instrumental (IADL) Risk Assessmentto determine their ability to perform IADL tasks which include returning to driving and community mobility. Please fax the MD order to . Call for an appointment to [phone], select option1 then option 1. O.T. Has discussed an alternative transportation plan and has given pt. Local community resources so that they may continue to access their community and participate in their roles and routines as much as possible. The results and recommendations included in this report are based on the client???s performance during the period of the evaluation and should not be relied on as absolute predictors of future performance. The conclusions reached and the recommendations made in this report are based in part upon the medical information available at the time that this report was written. If subsequent to the issuance of this report, the client???s medical status changes in such a manner that may compromise the client???s abilities, this report may no longer be relied upon as valid. Prior to admission, patient was not receiving Occupational Therapy services. Dwelling Information Maximum number of step(s) patient will need to negotiate in/outside home: 2 story home (bedroom on top floor) with exterior entrance having 1 step and no rails and interior having 13 steps and R side rail First floor amenities available at discharge: full bathroom, kitchen, bedroom, and regular height toilet Roles: Primary homemaker Pertinent Cultural/Spiritual Information Are there any spiritual/cultural beliefs the patient/family wishes for staff to consider prior to initiating or during evaluation/treatment? No Functional Communication Verbal Activities of Daily Living Precautions followed during ADL's: Bleeding precautions Cardiac precautions Fall precautions Safety Promotion/Fall Prevention: activity supervised, gait belt, mobility aid in reach, nonskid shoes/slippers when out of bed Grooming: Grooming: Level of assist: Minimal assist. Adaptive equipment/alternative method used: noassistive device. Position: sitting edge of bed Dressing Upper Body: Upper body dressing: Level of assist: Minimal assist. Adaptive equipment/alternative method used: no assistive device. Position: sitting edge of bed Dressing Lower Body: Lower body dressing: Level of assist: Moderate assist. Adaptive equipment/alternative method used: no assistive device. Position: sitting edge of bed Toileting: Level of assist: Minimal assist Other Functional Mobility: Balance sitting: Static sitting level of assist: Supervision Dynamic sitting level of assist: Contact guard Balance standing: Static standing level of assist: Minimal assist Dynamic standing level of assist: Minimal assist Bed/chair transfers: Minimal assist; Stand step with RW Sit to stand: Minimal assist Stand to sit: Minimal assist Chair transfer: Minimal assist; Stand step with RW Ambulation: 10-25'; Minimal assist with RW; Moderate verbal/tactile cues for device management Functional Movement Observations: Unsteady gait Endurance: Endurance during evaluation was Good for 24 minutes of activity. Pt on 6L NC and no SOB during session. Pre-Eval Vitals: Vital Signs BP: (!) 117/48 BP Mean: 71 MM HG Patient Position for VS: Sitting Upright Post-Eval Vitals: Vital Signs BP: 149/56 BP Mean: 87 MM HG Patient Position for VS: Sitting Upright Motor Planning Observations: Apraxia and Impaired sequencing Fine Motor Skills/Coordination: Right Upper Extremity: Impairments noted: Tip to tip opposition-right UE Left Upper Extremity: Impairments noted: Tip to tip opposition-left UE Upper Extremity Impairments: Mild BUE myoclonic jerks Upper Extremity Sensation: WFL Range of Motion: WFL Upper Extremity Strength: WFL Muscle Tone: WNL in upper extremities Vision/Perception: Pt endorses new onset of macular degeneration bilaterally; denies blurry/double vision Cognition: Pt demonstrated intermittent confusion, difficulty with task sequencing and problem solving, and decreased ability to process information throughout session. Level of Alertness: During this session, patient was alert consistently.. Following Directions: Patient follows 1 step commands consistently with minimal cueing. Memory: Answers orientation questions correctly 4 of 4 attempted by verbalizing with moderate cueing. Functional Problem Solving: Level of cueing: moderate Safety/Judgment observations: During ADLs assessment, patient exhibited the following characteristics: poor judgement, poor organizational skills, decreased attention to detail, impaired decision making, impaired attention, and impaired multi-tasking ability Social Behavior Observations: During evaluation, patient exhibited the following characteristics: pleasant/cooperative, anxious, and delayed responses Splinting/Positioning Needs: No splinting/positioning needs identified AM-PAC Daily Activities Raw Score: 17 AM-PAC Daily Activities t-Score: 37.26 Assessment: OT services are indicated. Raghu Stoverresrichy with decreased satisfaction/ability to participate in the following occupations: Grooming, Dressing, Toileting, Toilet Transfer, Tub/Shower Transfer, Emergency Responses, healthManagement, Home Management, Functional Mobility Raghu Welchuspresents with deficits in the following performance skills that interfere with participation in occupations: Cognition: Problem Solving, Memory, Attention, Initiation, Sequencing, Adaptability Neuromusculoskeletal Control and movement functions including: endurance, motor control, changing body position, dynamic balance, transferring self, lifting/carrying objects, coordination, functionalmobility Emotional Functions Thought functions Organization/Adaptability Mobility: Maintaining body position/Static Balance, Changing body position/Dynamic Balance, Transferring self, Lifting and carrying objects, Driving/Using Transportation Activity and Participation: Basic Learning, Applying knowledge, Undertaking a simple task, Undertaking a complex task, Undertaking multiple tasks, Carrying out daily routines OT Plan: Recommended Treatment: Activities of Daily Living Transfer Training Instrumental Activities of Daily Living Cognitive retraining Homemaking Energy conservation Balance activities Patient/Caregiver Education Home Safety OT Intensity/Frequency: 4 days per week OT Anticipated Duration: 2 weeks [...] patient presents as a moderate complexity evaluation. Occupational Therapy Recommended Consults: None identified at this time. Occupational Therapy Discharge Recommendations: Other OT DC Recommendations: Inpatient rehab Barriers to Discharge: Medical Acuity OT Services Recommended Post Discharge: Activities of daily living training, Instrumental activities of daily living training, Functional mobility training, Transfer training, Therapeutic exercise, Cognitive retraining DME Needed at Discharge: Defer to next level of care Physical Assist Required at DC for: Self care, Homemaking tasks, Bathroom transfers, Household mobility, Home safety/emergency responses Supervision Required at DC for: Adherence to precautions, Money/medication management Assessment only no therapeutic interventions provided. Pt presents with the following deficits: balance, endurance, functional mobility, and cognition; impacting ability to independently complete ADLs. OT recommending d/c to IPR; DME needs deferred to next level of care. Pt will be followed by acute OT services 4x/week. JACK Nation/L *Please utilize Cortext to contact* * Initial Gloria Herman PT - 01/09/2023 9:39 AM EDT PHYSICAL THERAPY EVALUATION-[facility] Patient Name: Raghu Rosenthal Date of Treatment: 01/09/2023 Date of : 1945 Age: 77yrs Date of admission: 12/28/2022 Attending Provider: Tania Hartley MD Start Time: Time In: 916 End Time: Time Out: 938 Active Hospital Problems Diagnosis *01/08/23 TransCatheter Aortic Valve Replacement ([id number], 26 Medtronic Evolut Pro, via the Left Transfemoral Approach) EF 35% CKD (chronic kidney disease) stage 3, GFR 30-59 ml/min ([facility]) FILIBERTO (acute kidney injury) ([facility]) Pulmonary edema Cardiogenic shock ([facility]) Acute on chronic HFrEF (heart failure with reduced ejection fraction) ([facility]) NSTEMI (non-ST elevated myocardial infarction) ([facility]) Hypertension Hyperlipidemia Coronary artery disease Subjective: Patient/family stated goals: Pt reports his goal is to get better Patient/family subjective history: Pt and RN agreeable to PT session, pt sitting in chair upon arrival of PT with at bedside, pt reporting I'm just overwhelmed. Pt reports they were staying [place] one level condo with an elevator to enter and have the condo through December, however home set up is airline security representative of their home they will return to at the end of the month, pending discharge time Mechanism of injury: Pt admitted for transcatheter aortic valve replacement Surgical Procedure: transcatheter aortic valve replacement Pain: See flow sheet for details. Social History Prior Functional Status: Independent in all functional mobility and ambulatory Mobility devices patient has at home: Cane-straight, Walker-rolling Adaptive equipment patient has at home: None Patient lives: with spouse Expected Caregiver at DC from Hospital: Spouse Caregiver Availability : multimedia editor Caregiver/Physical Assistance available: Significant assistance available Home Setting: Two story home Exterior Home Access: Steps, No rails Number of Steps: 1 Interior Home Access: Steps, Rail on right ascending Number of Steps: 13 Transportation: Drives Mental Status/Communication/Psychosocial Behavior Orientation/Memory: Oriented to:, Person, Place, Time, Situation LOC: Alert Speech/Communication: Verbal Coping Style: Calm, Cooperative Objective Findings: Musculoskeletal Assessment: ROM: BLE grossly WFL MMT: BLE grossly 4/5 throughout For BUE ROM and MMT see OT initial evaluation Neck/Trunk: WFL Precautions/Weight Bearing/Orthotics: Precautions Implemented: Falls, Cardiac Sensation: WFL Coordination: No coordination deficits that impair functional tasks were noted. Tone: Right UE tremors Left UE tremors Upright Control/Balance: Sitting Static: Impaired: Static position maintained with supervision, of 1 person(s), and single UE support. Sitting Dynamic: Impaired. Transitional activities in sitting: contact guard, of 1 person(s), and bilateral UE support Standing Static: Impaired. Static standing position maintained with contact guard, of 1 person(s), and bilateral UE support. Standing Dynamic: Impaired. Walking balance: Forward: minimal assist, of 1 person(s), and bilateralUE support Cardiopulmonary/Endurance: Length of session: 22 minutes- fair tolerance, fatiguing with mobility, no desat noted Oxygen: 6 Lpm, NC Pre-Eval Vital Signs: BP: (!) 117/48 (71 MM HG) Pulse: 68 SpO2: 96 % Resp: 17 Post-Eval Vital Signs: BP: 149/56 (87 MM HG) Pulse: 77 SpO2: 96 % Resp: 17 Mobility: Supine to Sit Unable/Not assessed: Patient already up in chair at beginning of session. Sit to supine Unable/Not assessed: Patient left up in chair at end of session. Sit to stand Surface height: 22 Level of Assist: Min Assist Assistive Device: Gait belt, Rolling Walker No. of person(s) assistin Reason for assist: Safety, Physical support or lifting, Balance # of trials: 1 Stand to sit Surface Height: 22 Level of Assist: Min Assist Assistive Device: Gait belt, Rolling Walker No. of person(s) assistin Reason for assist: Safety, Physical support or lifting, Balance # of trials: 1 Arm Chair Transfer Type of transfer: Stand step Level of assist: Min Assist Assistive device: Gait belt, Rolling Walker No. of person(s) assistin Reason for assist: Safety, Physical support or lifting, Balance # of trials: 1 Locomotion: Ambulation Ambulation Level of assist: Min Assist Assistive device: Gait belt, Rolling Walker No. of person(s) assistin Reasons for assist: Safety issues, Physical support, Balance # of trials: 1 Distance in feet: 20 Gait Deviations: decreased gait speed, decreased B step length and foot clearance, downward gaze, ambulating at an increased distance behind RW Surfaces: tile Stair Climbing Up Steps Did not assess stairs up/down: due to limited strength/endurance Outcome Tools: -[facility] SHORT FORMS TOOL BASIC MOBILITY Raghu Rosenthal [...] Climb 3-5 steps with a railin- A Lot Basic Mobility Scores -[facility] Mobility Raw Score: 17 AM-[facility] Mobility t-Score: 39.67 -[facility] Mobility G-Code Modifier: CK Legend for Raw [...] patient is functionally independent Patient Safety: Call Vasquez: In Reach and Able to Use ID Band: Checked Chair: Alarm Off/Comment, Wheels Locked (off upon entry) Safety Promotion/Fall Prevention: activity supervised, assistive device/personal items within reach, fall prevention program maintained, gait belt, nonskid shoes/slippers when out of bed Education: See Patient Education Activity for details. Assessment: Raghu Rosenthal presents with deficits that warrant PT intervention. Pt presents today functioning below his mobility baseline, currently requiring assist for all mobility, with deficits in strength, balance, and endurance. Pt able to ambulate ~20 feet with a RW and Carline, cueing required throughout to maintain proper proximity to RW. Pt will continue to benefit from skilled acute PT to progress mobility, recommend high intensity PT upon discharge, acute PT will continue to follow. Impairments: Patient presents with impairment of the following functions: Neuromusculoskeletal and movement functions including muscle strength, balance, endurance, gait pattern Activity/Restrictions: Patient presents with limitations in activity/restrictions in participation in the following: Mobility including: Changing positions, Transfers, Walking short distances, long distances, Moving around the home, Moving around in the community, Stair climbing Treatment Plan PT Recommended Treatment: Patient/Caregiver education. Exercise/Mobility: Therapeutic exercise, Transfer training, Gait training, Functional mobility training, Balance re-education, Neuromuscular re-education Discharge planning PT Intensity/Frequency: POT-Minimum Tx's per week: 4 times/week PT Anticipated Duration: 2 weeks PT POT Due: PT POT Due Date: 01/23/23 Patient has reviewed, understood and agrees with treatment plan: Yes Education-See Patient Education Activity Goals Potential to Achieve Goals: Good Physical Therapy Problems (Active) Problem: GENERAL MOBILITY (ALLIED HEALTH) Dates: Start: 01/09/23 Goal: Bed Mobility Dates: Start: 01/09/23 Expected End: 01/23/23 Description: Patient will be able to perform bed mobility with supervision, using no assistive device. Assistance required for safety. Goal: Household Transfer Dates: Start: 01/09/23 Expected End: 01/23/23 Description: Patient will be able to perform all functional transfers to/from household surfaces with supervision using least restrictive device. Assistance required for safety. Goal: Ambulation Dates: Start: 01/09/23 Expected End: 01/23/23 Description: Patient will be able to ambulate with supervision with least restrictive device > 100 ft. Assistance required for safety. Goal: Stair/Step Negotiation Dates: Start: 01/09/23 Expected End: 01/23/23 Description: Patient will be able to ascend/descend 13 steps with one rail and contact guard and least restrictive device without weight bearing restrictions. Assistance required for safety. Discharge Plan/Recommendations: Post-Acute Therapy Needs: Gait training, Neuromuscular Re-education, Therapeutic Activities, Therapeutic Excercises Intensity/setting: high intensity, facility based Physical Assistance Required at This Time: All mobility Supervision Required at This Time: All mobility Expected Caregiver at DC from Hospital: Spouse Caregiver Availability : multimedia editor Caregiver/Physical Assistance available: Significant assistance available Equipment Needed at DC: Will be assessed at next level of care Physical Therapy Recommendations: Consults: Consults: Would benefit from Rehab MD Consult Equipment: Will be assessed at next level of care Discharge Therapy Needs: High intensity therapy in an inpatient setting, Acute PT will continue to follow Gloria Orozco PT Cortext Preferred * Initial Ludwig - Nidhi Humphrey PT - 01/05/2023 3:09 PM EDT PHYSICAL THERAPY EVALUATION-INPATIENT [facility] Patient Name: Raghu Rosenthal Date of Treatment: 01/05/2023 Date of : 1945 Age: 77yrs Date of admission: 12/28/2022 Attending Provider: Maxwell Smith MD Start Time: Time In: 1441 End Time: Time Out: 1509 Problem List Active Hospital Problems Diagnosis *Acute coronary syndrome (CMS/HCC) NSTEMI (non-ST elevated myocardial infarction) (CMS/HCC) Shock (CMS/HCC) Hypertension Hyperlipidemia Coronary artery disease Past Medical History: Diagnosis Date Coronary artery disease Diverticulitis Hyperlipidemia Hypertension Subdural hematoma (CMS/HCC) Units PT Units (15 mins): 2 Subjective: Patient/ Family Goal: to feel better Subjective: Patient resting in bed when PT arrived. Pleasant and agreeable to work with therapy. Patient reports independence at baseline. Uses no device for mobility and has history of only 1 fall within the last 6 months, occurred while vacuuming. Reports will be able to assist upon discharge. I'm just so weak and tired. Mechanism of injury: acute coronary syndrome, NSTEMI, shock, CAD Surgical Procedure: pending TAVR 01/08 Pain Start: 5 - Moderate Pain, chest End: 0 - No Pain, chest Social History Prior Functional Status: Patient independent in all functional mobility prior to this admission. Prior Living Situation Devices patient has at home: None Patient lives: with spouse Type of home: One story home Outside steps to enter: elevator Inside steps: none Transportation: Drives and relies on family/friends Mental Status/Communication/Psychosocial Behavior Level of Consciousness: Alert and Quiet Orientation: Oriented to person, place, time, situation Age/Developmentally appropriate Memory: Intact memory abilities: Recognizes family, Remembers daily routine, Follows directions, Immediate recall, Recent recall, and Remote recall Age/developmentally appropriate Speech: Clear, Intelligible, and Age/developmentally appropriate Method of Communication: Verbal Emotional State/Behavior: Calm, Cooperative, and Age/developmentally appropriate Objective Findings: Precautions Cardiac, Falls Musculoskeletal Assessment: Strength: WFL. Grossly 4-/5 BUE and BLE ROM: WFL. Patient demonstrating AROM seated edge of bed and participating in functional mobility without limitations from ROM. Head/Neck/Trunk: WFL Sensation: Able to identify light touch throughout the BLE and BUE Coordination: No coordination deficits that impair functional tasks were noted. Tone: Normal Upright Control/Balance: Sitting Static: Normal = Able to maintain sitting balance against maximal resistance. Sitting Dynamic: Good-/Fair+ = Able to sit unsupported, able to weight shift and cross midline minimally. Standing Static: Good = Able to maintain standing balance against moderate resistance. Standing Dynamic: Good-/Fair+ = Stand independently unsupported, able to weight shift and cross midline minimally. Requires 1 person assist. Requires use of an assistive device - BUE support. Cardiopulmonary/Endurance: Length of session: 28 minutes Oxygen: 5 Lpm, NC (6L with mobility on portable O2 tank) Patient response: Patient tolerated session fairly. All vitals stable, but did have desaturations to mid 80s with exertion and associated increased WOB. Would take patient 2-3 minutes to recover. Patient coached in pursed lip breathing techniques, but difficult for patient and noted significant mouth breathing. No reports of pain or dizziness with mobility. BP was lower at end of session comparedto starting pressure, but patient denies dizziness and not presenting with any other symptoms. RN aware. Left seated EOB with all needs met. Vitals: Starting Blood Pressure: 123/73 (89 MM HG) Ending Blood Pressure: 92/58 (69 MM HG) Starting HR: 86 Ending HR: 83 Starting SpO2: 93 % Ending SpO2: 97 % Mobility: Supine to Sit Level of Assist: Min Assist Assistive Device: HOB elevated 30 degrees, Siderail (and 2 hand hold) No. of person(s) assistin Reason for assist: Sequencing, Safety, Physical support or lifting, Facilitation, Balance # of trials: 1 Sit to Supine Unable/Not assessed: other (comment) (wanted to remain seated EOB) Sit to Stand Surface height: 20 Level of Assist: Min Assist Assistive Device: Rolling Walker No. of person(s) assistin Reason for assist: Sequencing, Safety, Physical support or lifting, Facilitation, Balance # of trials: 2 Stand to Sit Surface Height: 20 Level of Assist: Min Assist Assistive Device: Rolling Walker No. of person(s) assistin Reason for assist: Safety, Physical support or lifting, Sequencing, Facilitation, Balance # of trials: 2 Arm Chair Transfer Unable to assess: due to patient declined Hospital Bed Transfer Type of transfer: Stand step Level of assist: Min Assist Assistive device: Rolling Walker No. of person(s) assistin Reason for assist: Physical support or lifting, Safety, Balance, Facilitation, Device management # of trials: 1 Locomotion: Ambulation Ambulation Ambulation Level of assist: Min Assist Assistive device: Rolling Walker No. of person(s) assistin Reasons for assist: Endurance, Safety issues, Device management, Physical support, Balance # of trials: 1 Distance in feet: 15 Gait Deviations: decreased gait speed, crouched posture Surfaces: level Stair Climbing up Steps Did not assess stairs up/down: as patient will not have to climb stairs at home Wheelchair Mobility Unable to assess: not primary mode of locomotion Outcome Tools: AM-PAC - Basic Mobility Basic Mobility Tasks Turning in bed without bedrails: 3- A Little Lying on back to sitting on edge of flat bed: 3- A Little Moving to and from a bed to a chair: 3- A Little Standing up from a chair: 3- A Little To walk in hospital room: 3- A Little Climb 3-5 steps with a railin- A Lot Basic Mobility Scores AM-PAC Mobility Raw Score: 17 AM-PAC Mobility t-Score: 39.67 AM-PAC Mobility G-Code Modifier: CK Legend for Raw & T-Scale Score: Raw score of 6 (t-scale score of 16.59) indicates the patient is totally dependent on staff/family for mobility Raw score of 18 (t-scale score of 41.05) indicates the patient requires a little bit of help (minimal assistance) to move Raw score of 24 (t-scale score of 57.68) indicates the patient is functionally independent Assessment: Raghu Rosenthal presents with deficits that warrant PT intervention. Pt reports independent mobility in the home before hospitalization. Status post NSTEMI and related medical complications including CAD, shock, patient presents with increased impairments including increased pain, decreased strength and endurance, impaired balance, and impaired ability to ambulate and transfer at baseline level of function. Patient now requiring CGA to min assist for all mobility. Pt requires skilled acute PT services to address impairments and increase safety awareness for progression towards prior level of function for discharge to next level of care when medically appropriate. May benefit from high intensity post acute therapies within an inpatient setting at time of discharge. Will reassess needs s/p tentative procedure. Impairments: Patient presents with impairment of the following functions: Cardiorespiratory functions including endurance, respiratory rate/rhythm, respiratory muscles Neuromusculoskeletal and movement functions including muscle strength, balance, endurance, gait pattern Activity/Restrictions: Patient presents with limitations in activity/restrictions in participation in the following: Mobility including: Changing positions, Maintaining positions, Transfers, Walking short distances, long distances, on different surfaces, around obstacles, walking without an assistive device, Moving around the home, Moving around in the community, Stair climbing, Using transportation including private vehicle Domestic life (meal preparation, housework, caring for others) Community/social life (jehovah's witness, social functions, recreation, leisure) Treatment Plan PT Recommended Treatment: Patient/Caregiver education. Exercise/Mobility: Therapeutic exercise, Transfer training, Gait training, Functional mobility training, Neuromuscular re-education Durable medical equipment assessment Discharge planning PT Intensity/Frequency: POT-Minimum Tx's per week: 4 times/week PT Anticipated Duration: 2 weeks PT POT Due: PT POT Due Date: 01/19/23 Patient has reviewed, understood and agrees with treatment plan: Yes Education-See Patient Education Activity Goals Potential to Achieve Goals: Fair Physical Therapy Problems (Active) Problem: GENERAL MOBILITY (ALLIED HEALTH) Dates: Start: 01/05/23 Goal: Bed Mobility Dates: Start: 01/05/23 Expected End: 01/19/23 Description: Patient will be able to perform bed mobility with supervision, using no assistive device. Assistance required for safety. Goal: Household Transfer Dates: Start: 01/05/23 Expected End: 01/19/23 Description: Patient will be able to perform all functional transfers to/from household surfaces with supervision using least restrictive device. Assistance required for safety. Goal: Ambulation Dates: Start: 01/05/23 Expected End: 01/19/23 Description: Patient will be able to ambulate with supervision with least restrictive device > 100 ft. Assistance required for safety. Goal: Home Exercise Program Dates: Start: 01/05/23 Expected End: 01/19/23 Description: Patient will be able to perform home exercise program x 10 repetitions with supervision for improved strength and endurance. Patient Safety: Siderail Status: 2 Rails at [facility] are Up Bed Position: Low Position, Wheels Locked Call Vasquez: In Reach and Able to Use ID Band: Checked Bed Alarms: Not indicated - low/moderate risk Safety Promotion/Fall Prevention: activity supervised, assistive device/personal items within reach, fall prevention program maintained, gait belt, nonskid shoes/slippers when out of bed Discharge Recommendations/Plan: Post-Acute Therapy Needs: Gait training, Neuromuscular Re-education, Therapeutic Activities, Therapeutic Excercises Intensity/setting: high intensity, facility based Physical Assistance Required at This Time: All mobility Expected Caregiver at DC from Hospital: Spouse Caregiver Availability : multimedia editor Caregiver/Physical Assistance available: Significant assistance available Equipment Needed at DC: Will be assessed at next level of care, Will continue to assess Physical Therapy Recommendations: Consults: Consults: Would benefit from Rehab MD Consult (after procedure) Equipment: Will be assessed at next level of care, Will continue to assess Discharge Therapy Needs: High intensity therapy in an inpatient setting, Acute PT will continue to follow Nidhi Humphrey PT, DPT Cortext preferred method of communication. * Initial Ruma Ramirez [facility] - 12/31/2022 2:12 PM EDT [facility] Case Management Assessment Patient Name: Raghu Rosenthal : 1945 Age: 77yrs MEG: [id number] Admit Date: 12/28/2022 Room: [place] [address] Attending Provider: Jeyson Richard MD Primary Care Provider: Williams Yip MD Last Admission: 12/31/22 ED Chief Complaint: No chief complaint on file. Reason for Consult/Assessment: Routine Assessment There are no questions and answers to display. Principal Problem: Acute coronary syndrome (CMS/HCC) Advance Directives: Advance Directive/Healthcare Power of Fur Coat Sewer Advance Directive/Living Will: No, information provided Health Care Power of Fur Coat Sewer: No, information provided Source of Information: Self, Chart Review This patient's decision maker is: Self Family/Support system: Living Arrangements: Spouse/significant other Support Systems: Spouse/significant other Type of Residence: Private residence Support Name: Cathy Rosenthal Support Phone Number: [phone] Verbal Permission Given to Contact?: Yes Director Of Medicare Services Is an user interface designer needed/used?: No Need for family participation in patient care?: SHAKE SPLITTER services/supplies/DME: Established Respiratory Supplies: CIPAP Machine Home Care Services: No Any history of, or current mental health diagnosis?: No Current Mental/Functional Status: Patient's mental status at this time is:: Alert and oriented Appearance: Appears stated age Attitude/Demeanor: Cooperative Affect: Appropriate Orientation: Oriented to Situation, Oriented to Time, Oriented to Place, Oriented to Self. Is your home accessible given your current medical needs?: Yes Feels unsteady when walking:: No Worried about falling:: No Custody and guardianship issues/APS/CPS (including abuse/ neglect issues): Payor source/ needs: Primary: Payor: MEDICARE / Plan: MEDICARE PART A & B / Product Type: Medicare / Secondary: BCBS Insight into what may contribute to a readmission: Chronic Disease Anticipated Discharge Plan: Method of Obtaining Prescription Medications After Discharge: Medicare Part D Method of Obtaining Follow Up Care After Discharge: PCP Means of reaching the discharge destination:: Family/Friends Does the patient need discharge transport arranged?: No Insight into what may contribute to Readmission: Chronic Disease How will this patient obtain prescription medications at discharge? Medicare Part D How will this patient obtain follow up care after discharge? PCP I have discussed the discharge plan with the patient/ family, who understand and agree. 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, could not remember address in [place],can call ifneeded DME CPAP HH none Pharmacy: [facility] has Rx coverage, encouraged to get any d/c meds from hospital pharmacy Pt has ride home CM will continue to follow Ruma Andrade CCM 12/31/2022 documented in this encounter Admitting Diagnoses Diagnosis NSTEMI (non-ST elevated myocardial infarction) ([facility]) ([facility]) ([facility]) ([facility]) Acute myocardial infarction, subendocardial infarction, episode of care unspecified documented in this encounter Administered Medications Inactive Administered Medications - up to 3 most recent administrations Medication Order MAR Action Action Date Dose Rate Site acetaminophen (TYLENOL) 650 mg/20.3 mL solution 1,000 mg 1,000 mg, Gastric Tube, ONCE, On Sun01/08/23 at 1235, For 1 dose, Shake well. $ Given 01/08/2023 2:23 PM EDT 1,000 mg acetaminophen (TYLENOL) 650 mg/20.3 mL solution 650 mg 650 mg, Oral, EVERY 4 HOURS NEEDED, Mild Pain, Starting on Sun12/29/22 at 0607, For 365 days, Shake well. $ Given 01/06/2023 1:21 AM EDT 650 mg $ Given 01/04/2023 8:53 PM EDT 650 mg $ Given 01/02/2023 8:45 PM EDT 650 mg acetaminophen (TYLENOL) tablet 1,000 mg 1,000 mg, Oral, EVERY 8 HOURS FREE TIMES, First dose on Sun01/08/23 at 2035, For 5 days $ Given 01/13/2023 1:56 PM EDT 1,000 mg $ Given 01/13/2023 4:16 AM EDT 1,000 mg $ Given 01/12/2023 7:38 PM EDT 1,000 mg acetaminophen (TYLENOL) tablet 650 mg 650 mg, Oral, EVERY 4 HOURS NEEDED, Mild Pain, Starting on Sun01/07/23 at 1252, For 365 days $ Given 01/07/2023 1:03 PM EDT 650 mg albuterol (PROVENTIL) 2.5 mg /3 mL (0.083 %) Nebu - Pyxis Override Pull Starting on Sun01/01/23 at 0936, For 1 dose, Created by cabinet override albuterol (PROVENTIL) 2.5 mg /3 mL (0.083 %) nebulizer solution 2.5 mg 2.5 mg, Inhalation, RT EVERY 4 HOURS, First dose on Sun01/01/23 at 1200, For 3 days, RESPIRATORY to administer. $ Given 01/01/2023 9:40 AM EDT 2.5 mg albuterol (PROVENTIL) 2.5 mg /3 mL (0.083 %) nebulizer solution 2.5 mg 2.5 mg, Inhalation, RT EVERY 6 HOURS, First dose (after last modification) on Sun01/01/23 at 1600, For 3 days, RESPIRATORY to administer. $ Given 01/04/2023 10:40 AM EDT 2.5 mg $ Given 01/04/2023 3:14 AM EDT 2.5 mg $ Given 01/03/2023 8:25 PM EDT 2.5 mg albuterol HFA (PROVENTIL HFA;VENTOLIN HFA) 90 mcg/actuation inhaler 2 Puff 2 Puff, Inhalation, EVERY 4 HOURS NEEDED, Shortness of Breath, Starting on Sun01/10/23 at 1606, For 365 days, RN to administer. Shake well. Med Disposal - Aerosol aspirin ([employer] ASPIRIN) chewable tablet 81 mg 81 mg, Oral, DAILY AT 0800, First dose on Sun12/29/22 at 0800, For 365 days $ Given 01/07/2023 10:48 AM EDT 81 mg $ Given 01/06/2023 10:04 AM EDT 81 mg $ Given 01/05/2023 7:56 AM EDT 81 mg aspirin EC tablet 81 mg 81 mg, Oral, DAILY, First dose (after last modification) on Sun01/09/23 at 1000, For 30 days, Do NOT open, crush, break, or chew. Give with food and a full glass of water to reduce GI upset. $ Given 01/19/2023 9:17 AM EDT 81 mg $ Given 01/18/2023 8:47 AM EDT 81 mg $ Given 01/17/2023 8:33 AM EDT 81 mg aspirin tablet 325 mg 325 mg, Gastric Tube, ONCE, On Sun01/08/23 at 1235, For 1 dose $ Given 01/08/2023 2:23 PM EDT 325 mg azithromycin (ZITHROMAX) 500 mg in sodium chloride 0.9 % 250 mL IVPB 500 mg, Intravenous, at 250 mL/hr, Administer over 60 Minutes, EVERY 24 HOURS, First dose on Sun12/28/22 at 1500, For 5 days, Indications: Empiric Infection Treatment $ New Bag/Syringe 12/28/2022 2:49 PM EDT 500 mg 250 mL/hr bisacodyL (DULCOLAX) EC tablet 5 mg 5 mg, Oral, DAILY, First dose on Sun01/10/23 at 1000, For 365 days, Do NOT crush, break, or chew. $ Given 01/19/2023 9:17 AM EDT 5 mg $ Given 01/18/2023 8:48 AM EDT 5 mg $ Given 01/17/2023 8:32 AM EDT 5 mg budesonide (PULMICORT) 0.5 mg/2 mL nebulizer solution 0.5 mg 0.5 mg, Inhalation, RT TWICE A DAY, First dose on Sun01/01/23 at 0825, For 3 days, RESPIRATORY to administer. Protect from light. $ Given 01/01/2023 9:47 AM EDT 0.5 mg bumetanide in NS (BUMEX) 10 mg/100 mL infusion (premade) 1 mg/hr (10 mL/hr), Intravenous, CONTINUOUS, Starting on Sun01/09/23 at 0525, For 30 days, Fall Risk Medication. Protect from light. Do not titrate Call IV additives or send notification by In Basket 1 hr prior to needing next dose. Rate/Dose Verify 01/16/2023 6:00 AM EDT 1 mg/hr 10 mL/hr Rate/Dose Verify 01/16/2023 5:00 AM EDT 1 mg/hr 10 mL/h r Rate/Dose Verify 01/16/2023 4:00 AM EDT 1 mg/hr 10 mL/h r calcium gluc in NaCL, iso-osm 1 gram/50 mL infusion (premix) 1 g 1 g, Intravenous, at 150 mL/hr, Administer over 20 Minutes, NEEDED, Other, Total Serum Calcium level LESS THAN or equal to 8.5 mg/dL OR Ionized Calcium LESS than 4.5, Starting on Sun01/08/23 at 1232, For 24 hours, Total Serum Calcium level LESS THAN or equal to 8.5 mg/dL OR Ionized Calcium LESS than 4.5 May repeat x 1 dose within 24 hours. Give 1 g over at least 20 minutes. Administer 1 gram over at least 20 minutes. $ New Bag/Syringe 01/09/2023 4:17 AM EDT 1 g 150 mL/h r cefePIME (MAXIPIME) 1 g in sodium chloride MBP 0.9% 100 mL IVPB 1 g (0.63730 g/kg), Intravenous, at 200 mL/hr, Administer over 30 Minutes, EVERY 12 HOURS FREE TIMES, First dose on Sun01/13/23 at 1240, For 7 days, Patient profile states an allergy to amoxicillin. Watch closely for cross sensitivity/anaphylaxis. Activate Mini-Bag Plus vial prior to patient infusion., Indications: Urinary Tract Infection $ New Bag/Syringe 01/16/2023 1:46 AM EDT 1 g 200 mL/hr $ New Bag/Syringe 01/15/2023 11:49 AM EDT 1 g 200 m L/hr $ New Bag/Syringe 01/15/2023 12:03 AM EDT 1 g 200 m L/hr cefePIME (MAXIPIME) 1 g in sodium chloride MBP 0.9% 100 mL IVPB 1 g (0.26551 g/kg), Intravenous, at 200 mL/hr, Administer over 30 Minutes, EVERY 24 HOURS, First dose (after last modification) on Sun01/16/23 at 1530, For 1 dose, Patient profile states an allergy to amoxicillin. Watch closely for cross sensitivity/anaphylaxis. Activate Mini-Bag Plus vial prior to patient infusion., Indications: Urinary Tract Infection $ New Bag/Syringe 01/16/2023 3:16 PM EDT 1 g 200 mL/hr cefTRIAXone (ROCEPHIN) 1 g in sodium chloride MBP 0.9% 100 mL IVPB 1 g (0.19003 g/kg), Intravenous, at 200 mL/hr, Administer over 30 Minutes, EVERY 24 HOURS, First dose on Sun01/12/23 at 1620, For 7 days, Activate Mini-Bag Plus vial prior to patient infusion. Do not co-administer with IV calcium products., Indications: Urinary Tract Infection $ New Bag/Syringe 01/12/2023 6:28 PM EDT 1 g 200 mL/hr cefTRIAXone (ROCEPHIN) 2 g in sodium chloride MBP 0.9% 100 mL IVPB 2 g (0.0157 g/kg), Intravenous, at 200 mL/hr, Administer over 30 Minutes, EVERY 24 HOURS, First dose on Sun12/28/22 at 1800, For 7 days, Activate Mini-Bag Plus vial prior to patient infusion. Do not co-administer with IV calcium products., Indications: Empiric Infection Treatment $ New Bag/Syringe 12/28/2022 6:05 PM EDT 2 g 200 mL/hr cefUROXime (ZINACEF) 1.5 g in sodium chloride MBP 0.9% 100 mL IVPB 1.5 g (0.012 g/kg), Intravenous, at 200 mL/hr, Administer over 30 Minutes, EVERY 12 HOURS FREE TIMES, First dose on Sun01/08/23 at 2000, For 3 doses, Activate Mini-Bag Plus vial prior to patient infusion., Indications: Perioperative Prophylaxis $ New Bag/Syringe 01/09/2023 7:40 PM EDT 1.5 g 200 mL/hr $ New Bag/Syringe 01/09/2023 7:58 AM EDT 1.5 g 200 mL /hr $ New Bag/Syringe 01/08/2023 8:29 PM EDT 1.5 g 200 mL /hr chlorothiazide (DIURIL) injection 500 mg 500 mg (4.01 mg/kg), Intravenous, ONCE, On Sun01/08/23 at 1840, For 1 dose, Fall Risk Medication. Reconstitute contents of 500 mg vial with 18 mL of sterile water for injection for a final concentration of 28 mg/mL. Administer IV push over 3 - 5 minutes. Should be given 30 minutes prior to loop diuretic (e.g. furosemide or bumetanide) when also ordered. $ Given 01/08/2023 8:30 PM EDT 500 mg cholecalciferol (VITAMIN D-3) tablet 1,000 Units 1,000 Units, Oral, DAILY, First dose on Sun12/30/22 at 1525, For 365 days, cholecalciferol (Vit D-3) 25 mcg = 1000 units $ Given 01/07/2023 10:48 AM EDT 1,000 Units $ Given 01/06/2023 10:04 AM EDT 1,000 Units $ Given 01/05/2023 9:57 AM EDT 1,000 Units clopidogreL (PLAVIX) tablet 300 mg 300 mg, Oral, ONCE, On Sun01/08/23 at 0740, For 1 dose $ Given 01/08/2023 7:44 AM EDT 300 mg clopidogreL (PLAVIX) tablet 75 mg 75 mg, Oral, DAILY, First dose on Sun01/09/23 at 1000, For 30 days $ Given 01/19/2023 9:17 AM EDT 75 mg $ Given 01/18/2023 8:48 AM EDT 75 mg $ Given 01/17/2023 8:33 AM EDT 75 mg docusate sodium (COLACE) capsule 100 mg 100 mg, Oral, TWICE A DAY, First dose on Sun01/09/23 at 1035, For 365 days $ Given 01/11/2023 10:50 AM EDT 100 mg $ Given 01/10/2023 9:41 PM EDT 100 mg $ Given 01/10/2023 8:58 AM EDT 100 mg enoxaparin (LOVENOX) 40 mg/0.4 mL injection 40 mg 40 mg, Subcutaneous, EVERY 12 HOURS, First dose (after last modification) on Sun12/29/22 at 1250, For 30 days, Inject at a 90 degree angle. [...] scheduling patients for spinal procedures. $ Given 01/03/2023 9:16 PM EDT 40 mg Abdominal Tissue $ Given 01/03/2023 11:00 AM EDT 40 mg L eft Lower Abdomen $ Given 01/02/2023 8:46 PM EDT 40 mg Ab dominal Tissue enoxaparin (LOVENOX) 40 mg/0.4 mL injection 40 mg 40 mg, Subcutaneous, DAILY AT 1600, First dose (after last modification) on Cindy 01/04/23 at 1600, For 30 doses, Inject at a 90 degree angle. Do [...] scheduling patients for spinal procedures. $ Given 01/04/2023 4:48 PM EDT 40 mg Abdominal Tissue enoxaparin (LOVENOX) 40 mg/0.4 mL injection 40 mg 40 mg, Subcutaneous, DAILY AT 1600, First dose (after last modification) on Sun01/17/23 at 0745, For 365 days, Inject at a 90 [...] scheduling patients for spinal procedures. $ Given 01/19/2023 4:00 PM EDT 40 mg Abdominal Tissue $ Given 01/18/2023 4:24 PM EDT 40 mg Ab dominal Tissue $ Given 01/17/2023 8:33 AM EDT 40 mg Ab dominal Tissue EPINEPHrine (ADRENALIN) 10 mcg/mL in dextrose 5% in water (D5W) 250 mL CSICU ONLY infusion 0.02 mcg/kg/min ? 124.6 kg (14.952 mL/hr, rounded to 15 mL/hr), Intravenous, CONTINUOUS, Starting on Sun01/08/23 at 1245, For 30 days, Protect from light. Decrease by 1 cc/hr every 1 hour to off Call IV additives or send notification by In Basket 1 hour prior to needing next bag. Rate Change 01/09/2023 11:00 PM EDT 0.001 mcg/kg/min 1 mL/hr Rate Change 01/09/2023 10:00 PM EDT 0.003 mcg/kg/min 2 mL/ hr Rate Change 01/09/2023 9:00 PM EDT 0.004 mcg/kg/min 3 mL/h r escitalopram (LEXAPRO) tablet 20 mg 20 mg, Oral, DAILY, First dose on Sun12/29/22 at 1000, For 365 days, Fall Risk Medication $ Given 01/19/2023 9:17 AM EDT 20 mg $ Given 01/18/2023 8:48 AM EDT 20 mg $ Given 01/17/2023 8:33 AM EDT 20 mg fenofibrate (TRICOR) tablet 145 mg 145 mg, Oral, WITH BREAKFAST, First dose on Sun12/30/22 at 1525, For 365 days $ Given 01/19/2023 8:00 AM EDT 145 mg $ Given 01/18/2023 8:48 AM EDT 145 mg $ Given 01/17/2023 8:33 AM EDT 145 mg fentaNYL (SUBLIMAZE) injection 25-50 mcg 25-50 mcg (0.197-0.393 mcg/kg), Intravenous, DIRECTED, Starting on Cindy 12/28/22 at 1605, For 8 hours, Fall Risk Medication. Have readily available for procedure. To be given in Director Consumer Affairs ONLY by RN as ordered by Cardiology MD during the procedure. See MAR/APPLIQUER ZIGZAG Doc flowsheet for specific administration times and amounts. $ Given 12/28/2022 4:37 PM EDT 25 mcg fentaNYL (SUBLIMAZE) injection 25-50 mcg 25-50 mcg (0.216-0.432 mcg/kg), Intravenous, NEEDED, For conscious sedation during EP procedure., Starting on Sun01/12/23 at 1224, For 8 hours, Fall Risk Medication $ Given 01/12/2023 4:30 PM EDT 25 mcg $ Given 01/12/2023 4:18 PM EDT 25 mcg $ Given 01/12/2023 4:05 PM EDT 25 mcg ferrous sulfate EC tablet 325 mg 325 mg, Oral, EVERY 48 HOURS, First dose on Sun01/14/23 at 1800, For 365 days, Use for doses of 300mg or 325mg $ Given 01/18/2023 4:24 PM EDT 325 mg $ Given 01/17/2023 3:15 PM EDT 325 mg $ Given 01/16/2023 3:16 PM EDT 325 mg folic acid (FOLVITE) tablet 1 mg 1 mg, Oral, DAILY, First dose on 01/14/23 at 1810, For 365 days, Use for Folate or Folvite. $ Given 01/19/2023 9:17 AM EDT 1 mg $ Given 01/18/2023 8:48 AM EDT 1 mg $ Given 01/17/2023 8:33 AM EDT 1 mg furosemide (LASIX) 10 mg/mL Soln - Pyxis Override Pull Starting on Sun01/01/23 at 0832, For 1 dose, Created by cabinet override 1 mg Bumetanide = 40 mg Furosemide. furosemide (LASIX) injection 20 mg 20 mg, Intravenous, ONCE, On Sun12/29/22 at 0805, For 1 dose, Fall Risk Medication 1 mg Bumetanide = 40 mg Furosemide. $ Given 12/29/2022 10:19 AM EDT 20 mg furosemide (LASIX) injection 20 mg 20 mg, Intravenous, ONCE, On Sun12/31/22 at 0935, For 1 dose, Fall Risk Medication 1 mg Bumetanide = 40 mg Furosemide. $ Given 12/31/2022 11:30 AM EDT 20 mg furosemide (LASIX) injection 20 mg 20 mg, Intravenous, ONCE, On 12/31/22 at 2015, For 1 dose, Fall Risk Medication 1 mg Bumetanide = 40 mg Furosemide. $ Given 12/31/2022 10:12 PM EDT 20 mg furosemide (LASIX) injection 40 mg 40 mg, Intravenous, ONCE, On Sun12/30/22 at 0915, For 1 dose, Fall Risk Medication 1 mg Bumetanide = 40 mg Furosemide. $ Given 12/30/2022 10:53 AM EDT 40 mg furosemide (LASIX) injection 40 mg 40 mg, Intravenous, ONCE, On Sun01/01/23 at 0825, For 1 dose, Fall Risk Medication 1 mg Bumetanide = 40 mg Furosemide. $ Given 01/01/2023 8:36 AM EDT 40 mg furosemide (LASIX) injection 40 mg 40 mg, Intravenous, TWICE A DAY DIURETICS, First dose on 01/01/23 at 1600, For 30 days, Fall Risk Medication 1 mg Bumetanide = 40 mg Furosemide. $ Given 01/02/2023 5:32 AM EDT 40 mg $ Given 01/01/2023 6:41 PM EDT 40 mg furosemide (LASIX) injection 40 mg 40 mg, Intravenous, ONCE, On 01/03/23 at 1345, For 1 dose, Fall Risk Medication 1 mg Bumetanide = 40 mg Furosemide. $ Given 01/03/2023 1:54 PM EDT 40 mg furosemide (LASIX) injection 40 mg 40 mg, Intravenous, ONCE, On Cindy 01/04/23 at 0045, For 1 dose, Fall Risk Medication 1 mg Bumetanide = 40 mg Furosemide. $ Given 01/04/2023 1:29 AM EDT 40 mg furosemide (LASIX) injection 40 mg 40 mg, Intravenous, ONCE, On 01/06/23 at 2340, For 1 dose, Fall Risk Medication 1 mg Bumetanide = 40 mg Furosemide. $ Given 01/06/2023 11:45 PM EDT 40 mg furosemide (LASIX) injection 60 mg 60 mg, Intravenous, ONCE, On Cindy 12/28/22 at 1550, For 1 dose, Fall Risk Medication 1 mg Bumetanide = 40 mg Furosemide. $ Given 12/28/2022 3:50 PM EDT 60 mg furosemide in NS (LASIX) 100 mg/100 mL (1 mg/mL) infusion (premade) 20 mg/hr (20 mL/hr), Intravenous, CONTINUOUS, Starting on Sun01/08/23 at 1300, For 30 days, Fall risk medication. Protect from light. DO NOT TITRATE. Maximum dose is 40 mg/hr. Call IV additives or send notification by In Basket 1 hr prior to needing next dose. Rate/Dose Verify 01/09/2023 5:56 AM EDT 20 mg/hr 20 mL/hr Rate/Dose Verify 01/09/2023 5:00 AM EDT 20 mg/hr 20 mL/h r Rate/Dose Verify 01/09/2023 4:00 AM EDT 20 mg/hr 20 mL/h r furosemide in NS (LASIX) 160 mg/50 mL (3.2 mg/mL) infusion (premade) 10 mg/hr (3.125 mL/hr, rounded to 3.13 mL/hr), Intravenous, CONTINUOUS, Starting on Sun01/03/23 at 0940, For 30 days, Fall Risk Medication. Protect from light. DO NOT TITRATE. Maximum dose is 40 mg/hr. Call IV additives or send notification by In Basket 1 hour prior to needing next bag. $ New Bag/Syringe 01/03/2023 11:06 AM EDT 5 mg/hr 1.56 mL/hr furosemide in NS (LASIX) 160 mg/50 mL (3.2 mg/mL) infusion (premade) 25 mg/hr (7.8125 mL/hr, rounded to 7.8 mL/hr), Intravenous, CONTINUOUS, Starting on Sun01/03/23 at 1405, For 30 days, DO NOT TITRATE Fall Risk Medication. Protect from light. Max dose 40 mg/hr Call IV additives or send notification by In Basket 1 hour prior to needing next bag. Rate/Dose Verify 01/08/2023 6:00 AM EDT 25 mg/hr 7.8 mL/hr Rate/Dose Verify 01/08/2023 5:00 AM EDT 25 mg/hr 7.8 mL/ hr Rate/Dose Verify 01/08/2023 4:00 AM EDT 25 mg/hr 7.8 mL/ hr gabapentin (NEURONTIN) capsule 100 mg 100 mg, Oral, AT BEDTIME, First dose on Sun01/02/23 at 2330, For 365 days, Fall Risk Medication $ Given 01/07/2023 9:25 PM EDT 100 mg $ Given 01/06/2023 10:48 PM EDT 100 mg $ Given 01/05/2023 10:38 PM EDT 100 mg gabapentin (NEURONTIN) capsule 100 mg 100 mg, Oral, AT BEDTIME, First dose (after last modification) on Sun01/09/23 at 2200, For 359 doses, Fall Risk Medication $ Given 01/18/2023 9:12 PM EDT 100 mg $ Given 01/17/2023 8:57 PM EDT 100 mg $ Given 01/16/2023 10:04 PM EDT 100 mg heparin, porcine (PF) (hepARIN) 5,000 unit/0.5 mL injection 7,500 Units 7,500 Units, Subcutaneous, EVERY 8 HOURS, First dose (after last modification) on Sun01/05/23 at 1400, For 365 days $ Given 01/07/2023 9:25 PM EDT 7,500 Units Abdominal Tissue $ Given 01/07/2023 3:50 PM EDT 7,500 Units L eft Anterior Lateral Abdomen $ Given 01/07/2023 5:26 AM EDT 7,500 Units A bdominal Tissue heparin, porcine (PF) (hepARIN) 5,000 unit/0.5 mL injection 7,500 Units 7,500 Units, Subcutaneous, EVERY 8 HOURS, First dose (after last modification) on Sun01/09/23 at 1400, For 365 days $ Given 01/14/2023 5:18 AM EDT 7,500 Units Abdominal Tissue $ Given 01/13/2023 9:42 PM EDT 7,500 Units A bdominal Tissue $ Given 01/13/2023 2:45 PM EDT 7,500 Units A bdominal Tissue hydrOXYzine (VISTARIL) capsule 25 mg 25 mg, Oral, ONCE, On Cindy 01/04/23 at 1045, For 1 dose, Fall Risk Medication $ Given 01/04/2023 11:03 AM EDT 25 mg hydrOXYzine (VISTARIL) capsule 50 mg 50 mg, Oral, ONCE, On Sun01/17/23 at 1450, For 1 dose, Fall Risk Medication $ Given 01/17/2023 3:15 PM EDT 50 mg insulin lispro (HumaLOG) 100 units/mL sensitivity factor injection Subcutaneous, FIVE TIMES A DAY INSULIN, First dose on Sun01/08/23 at 1800, For 365 days, Document administration site. Give this correctional (sensitivity factor) insulin at the calculated dose even if the patient does not eat or is NPO., Target Glucose Value (mg/dL): 120, Insulin Sensitivity Factor: 24 $ Given 01/11/2023 12:21 PM EDT 1 Units Left Anterior Latera l Abdomen $ Given 01/10/2023 6:01 PM EDT 1 Units Le ft Arm $ Given 01/09/2023 12:28 PM EDT 3 Units A bdominal Tissue iodixanoL (VISIPAQUE) 270 mg iodine/mL injection 2,700-27,000 mg 2,700-27,000 mg (10-100 mL), Intravenous, RAD ONCE, Other, For EP procedure use only., Starting on Sun01/12/23 at 1225, For 1 day $ Given 01/12/2023 4:32 PM EDT 25 mL iodixanoL (VISIPAQUE) 320 mg iodine/mL injection 25,600 mg 25,600 mg (80 mL), Intravenous, RAD ONCE, Other, Starting on 12/30/22 at 0917, For 1 day, Is patient able to answer these questions? Yes, morgue technician name and phone number: [phone], Previous contrast reaction (except nausea/vomiting, heat/flushing/pain)? If yes, describe in comments. No, Pretreatment for current study? No, Kidney disease? No, Are you diabetic? No, If yes, are you taking Glucophage, Metformin, Glucovance, or other oral diabetes medications? No, History of asthma? If yes, how severe? No, Are you currently taking medication for asthma? No, History of drug or other allergies? Yes, History of anaphylactic reaction to a drug, food, or other substance? No, Significant cardiac dysfunction, e.g. unstable angina, severe congestive failure, pulmonary hypertension? Yes $ Given 12/30/2022 9:53 AM EDT 80 mL Left Upper Arm iodixanoL (VISIPAQUE) 320 mg iodine/mL injection 48,000 mg 48,000 mg (150 mL), Other, RAD ONCE, Other, Starting on Sun12/28/22 at 1605, For 1 day $ Given 12/28/2022 5:21 PM EDT 110 mL lidocaine (LIDODERM) 5 % patch 1 Patch 1 Patch, Transdermal, Administer over 12 Hours, DAILY, First dose on Sun01/03/23 at 1000, For 365 days, Apply to intact skin at source of pain for 12 hours, then remove. Wait 12 hours to apply next patch. Patch may be cut to size prior to removal of release liner. If patch contains metal, remove patch PRIOR to MRI. $ Medication Applied 01/07/2023 10:00 AM EDT 1 Patch Left Back $ Medication Applied 01/06/2023 10:00 AM EDT 1 Patch Left Back $ Medication Applied 01/05/2023 9:57 AM EDT 1 Patch Left Back lidocaine HCL (XYLOCAINE) 2 % jelly 6 mL 6 mL, INTRA-URETHRAL, ONCE, On 01/13/23 at 1245, For 1 dose $ Given 01/13/2023 2:25 PM EDT 6 mL lidocaine PF (XYLOCAINE) 10 mg/mL (1 %) injection 0-30 mL 0-30 mL, Subcutaneous, ONCE, On Sun01/12/23 at 1230, For 1 dose, For EP procedure use only. $ Given by Other 01/12/2023 3:15 PM EDT 30 mL Left Chest loperamide (IMODIUM) capsule 4 mg 4 mg, Oral, ONCE, On Cindy 12/28/22 at 2310, For 1 dose, Give after each loose stool. Maximum dose is 16 mg (8 capsules in 24 hours) $ Given 12/28/2022 11:18 PM EDT 4 mg magnesium oxide (MAG-OX) tablet 800 mg 800 mg, Oral, ONCE, On Sun01/17/23 at 0655, For 1 dose $ Given 01/17/2023 6:20 AM EDT 800 mg magnesium sulfate in D5W infusion 1 g 1 g, Intravenous, at 100 mL/hr, Administer over 1 Hours, ONCE, On Sun01/13/23 at 0725, For 1 dose, Recommended for Serum Magnesium 1.6 - 1.9 mg/dL $ New Bag/Syringe 01/13/2023 7:58 AM EDT 1 g 100 mL/hr magnesium sulfate in D5W infusion 1 g 1 g, Intravenous, at 33.3 mL/hr, Administer over 3 Hours, ONCE, On Sun01/15/23 at 1850, For 1 dose, Recommended for Serum Magnesium 1.6 - 1.9 mg/dL $ New Bag/Syringe 01/15/2023 6:13 PM EDT 1 g 33.3 mL/hr magnesium sulfate in D5W infusion 1 g 1 g, Intravenous, at 33.3 mL/hr, Administer over 3 Hours, ONCE, On Sun01/19/23 at 0740, For 1 dose, Recommended for Serum Magnesium 1.6 - 1.9 mg/dL $ New Bag/Syringe 01/19/2023 7:40 AM EDT 1 g 33.3 mL/hr magnesium sulfate in SWI 2 gram/50 mL IVPB (premix) 2 g 2 g, Intravenous, at 25 mL/hr, Administer over 2 Hours, NEEDED, Other, For Serum Magnesium of LESS THAN 2.5 mg/dL, Starting on 01/08/23 at 1232, For 7 days, Repeat serum magnesium on POD 1. $ New Bag/Syringe 01/09/2023 4:44 AM EDT 2 g 25 mL/hr $ New Bag/Syringe 01/08/2023 1:49 PM EDT 2 g 25 mL/ hr magnesium sulfate in SWI 2 gram/50 mL IVPB (premix) 2 g 2 g, Intravenous, at 25 mL/hr, Administer over 2 Hours, ONCE, On Sun01/14/23 at 0720, For 1 dose, Recommended for serum magnesium 1 to 1.5 mg/dL $ New Bag/Syringe 01/14/2023 8:01 AM EDT 2 g 25 mL/hr magnesium sulfate in SWI 2 gram/50 mL IVPB (premix) 2 g 2 g, Intravenous, at 25 mL/hr, Administer over 2 Hours, ONCE, On Sun01/15/23 at 0705, For 1 dose, Recommended for serum magnesium 1 to 1.5 mg/dL $ New Bag/Syringe 01/15/2023 6:28 AM EDT 2 g 25 mL/hr magnesium sulfate in SWI 2 gram/50 mL IVPB (premix) 2 g 2 g, Intravenous, at 25 mL/hr, Administer over 2 Hours, ONCE, On Sun01/17/23 at 2235, For 1 dose, Recommended for serum magnesium 1 to 1.5 mg/dL $ New Bag/Syringe 01/17/2023 10:01 PM EDT 2 g 25 mL/hr melatonin tablet Tab 5 mg 5 mg, Oral, AT BEDTIME, First dose on 12/30/22 at 2325, For 365 days $ Given 01/07/2023 9:25 PM EDT 5 mg $ Given 01/06/2023 10:48 PM EDT 5 mg $ Given 01/05/2023 10:38 PM EDT 5 mg melatonin tablet Tab 5 mg 5 mg, Oral, AT BEDTIME, First dose on 01/13/23 at 2200, For 365 days $ Given 01/18/2023 9:11 PM EDT 5 mg $ Given 01/17/2023 8:57 PM EDT 5 mg $ Given 01/16/2023 10:04 PM EDT 5 mg methocarbamoL (ROBAXIN) tablet 250 mg 250 mg, Oral, FOUR TIMES A DAY, First dose on Sun01/09/23 at 1800, For 5 days, Fall Risk Medication $ Given 01/12/2023 7:39 PM EDT 250 mg $ Given 01/12/2023 6:25 AM EDT 250 mg $ Given 01/12/2023 1:15 AM EDT 250 mg methocarbamoL (ROBAXIN) tablet 250 mg 250 mg, Oral, FOUR TIMES A DAY, First dose (after last modification) on Sun01/13/23 at 0100, For 6 doses, Fall Risk Medication $ Given 01/14/2023 5:18 AM EDT 250 mg $ Given 01/14/2023 12:15 AM EDT 250 mg $ Given 01/13/2023 8:00 PM EDT 250 mg metOLazone (ZAROXOLYN) tablet 5 mg 5 mg, Oral, ONCE, On Sun01/09/23 at 1625, For 1 dose, Fall Risk Medication. Should be given 30 minutes prior to loop diuretic (e.g. furosemide or bumetanide) when also ordered. $ Given 01/09/2023 4:46 PM EDT 5 mg metOLazone (ZAROXOLYN) tablet 5 mg 5 mg, Oral, ONCE, On Sun01/10/23 at 1130, For 1 dose, Fall Risk Medication. Should be given 30 minutes prior to loop diuretic (e.g. furosemide or bumetanide) when also ordered. $ Given 01/10/2023 11:47 AM EDT 5 mg metOLazone (ZAROXOLYN) tablet 5 mg 5 mg, Oral, ONCE, On Sun01/11/23 at 0800, For 1 dose, Fall Risk Medication. Should be given 30 minutes prior to loop diuretic (e.g. furosemide or bumetanide) when also ordered. $ Given 01/11/2023 8:15 AM EDT 5 mg metoprolol succinate XL (TOPROL-XL) 24 hr tablet 25 mg 25 mg, Oral, DAILY, First dose on Sun01/17/23 at 1000, For 365 days, Do NOT crush or chew. May break in half. $ Given 01/19/2023 9:17 AM EDT 25 mg $ Given 01/18/2023 8:47 AM EDT 25 mg $ Given 01/17/2023 8:44 AM EDT 25 mg metoprolol tartrate (LOPRESSOR) tablet 12.5 mg 12.5 mg, Oral, TWICE A DAY, First dose on Sun01/14/23 at 1705, For 365 days $ Given 01/16/2023 8:14 AM EDT 12.5 mg $ Given 01/15/2023 10:04 PM EDT 12.5 mg $ Given 01/15/2023 9:39 AM EDT 12.5 mg metoprolol tartrate (LOPRESSOR) tablet 12.5 mg 12.5 mg, Oral, TWICE A DAY, First dose (after last modification) on Sun01/16/23 at 2200, For 1 dose $ Given 01/16/2023 10:05 PM EDT 12.5 mg midazolam (PF) (VERSED) injection 1-2 mg 1-2 mg (0.09606-9.66060 mg/kg), Intravenous, DIRECTED, Starting on Cindy 12/28/22 at 1605, For 8 hours, Fall Risk Medication. Have readily available for procedure. To be given in Director Consumer Affairs ONLY by RN as ordered by Cardiology MD during the procedure. See MAR/APPLIQUER ZIGZAG Doc flowsheet for specific administration times and amounts. $ Given 12/28/2022 4:37 PM EDT 1 mg midazolam (PF) (VERSED) injection 1-2 mg 1-2 mg (0.96463-8.19685 mg/kg), Intravenous, NEEDED, For conscious sedation during EP procedure., Starting on Sun01/12/23 at 1225, For 8 hours, Fall Risk Medication $ Given 01/12/2023 4:30 PM EDT 1 mg $ Given 01/12/2023 4:18 PM EDT 1 mg $ Given 01/12/2023 4:05 PM EDT 1 mg morphine 2 mg/mL injection 2 mg 2 mg (0.0164 mg/kg), Intravenous, ONCE, On Sun01/01/23 at 0605, For 1 dose, Fall Risk Medication $ Given 01/01/2023 6:13 AM EDT 2 mg nitroglycerin (NITROSTAT) SL tablet 0.4 mg 0.4 mg, Sublingual, EVERY 5 MINUTES NEEDED, Chest pain, Starting on Sun01/01/23 at 0536, For 30 days, Give every 5 minutes x 3 doses for chest pain. If pain unrelieved after 3 doses, call MD. $ Given 01/01/2023 5:51 AM EDT 0.4 mg norepinephrine bitartrate-NS (LEVOPHED) 4 mg/250 mL (16 mcg/mL) infusion (premix) 2 mcg/min (7.5 mL/hr), Intravenous, CONTINUOUS, Starting on Cindy 12/28/22 at 1415, For 7 days, Protect from light. Intensive Care Unit (Nurse to Patient Ratio 1:2) Instructions: Titrate by 2 mcg/min every 5 minutes to achieve MAP (mmHg) greater than 65. When at goal for 2 hours, consider decrease by 2 mcg/min every 5 minutes to maintain goal. Maximum dose is 30 mcg/min. Norepinephrine should be infused via a Central or PICC line, if possible, if not a large bore vein should be used with frequent monitoring. Should extravasation occur, use of Phentolamine is recommended. Call IV additives or send notification by In Basket 1 hr prior to needing next bag. Rate/Dose Verify 12/28/2022 3:00 PM EDT 4 mcg/min 15 mL/hr $ New Bag/Syringe 12/28/2022 2:49 PM EDT 4 mcg/min 15 mL/ hr norepinephrine bitartrate-NS (LEVOPHED) 4 mg/250 mL (16 mcg/mL) infusion (premix) 0.02 mcg/kg/min ? 124.6 kg (9.345 mL/hr, rounded to 9.3 mL/hr), Intravenous, CONTINUOUS, Starting on Sun01/08/23 at 1245, For 7 days, Protect from light. Dose range: 0.02 - 0.3 mcg/kg/min. Titrate to maintain SBP > 100 Call IV additives or send notification by In Basket 1 hr prior to needing next dose. Rate/Dose Verify 01/08/2023 9:00 PM EDT 0.01 mcg/kg/min 4.7 mL/hr Rate/Dose Verify 01/08/2023 8:00 PM EDT 0.01 mcg/kg/min 4. 7 mL/hr Restarted 01/08/2023 7:50 PM EDT 0.01 mcg/kg/min 4.7 mL/h r ondansetron (ZOFRAN) injection 4 mg 4 mg (0.0328 mg/kg), Intravenous, EVERY 4 HOURS NEEDED, Nausea, Vomiting, Starting on Sun12/31/22 at 1604, For 30 days, Doses 4 mg or less can be administered IV push over 3-5 minutes. Doses over 4 mg should be diluted and infused over 15 minutes. $ Given 01/02/2023 8:45 PM EDT 4 mg $ Given 01/01/2023 5:13 AM EDT 4 mg $ Given 12/31/2022 4:54 PM EDT 4 mg ondansetron (ZOFRAN) injection 4 mg 4 mg (0.0321 mg/kg), Intravenous, EVERY 6 HOURS NEEDED, Nausea, Vomiting, Starting on Sun01/08/23 at 1232, For 30 days, Doses 4 mg or less can be administered IV push over 3-5 minutes. Doses over 4 mg should be diluted and infused over 15 minutes. $ Given 01/08/2023 2:37 PM EDT 4 mg oxyCODONE (ROXICODONE) immediate release tablet 5 mg 5 mg, Oral, EVERY 4 HOURS NEEDED, Severe Pain, Unrelieved Pain, Starting on Sun01/14/23 at 1707, For 365 days, FALL RISK MEDICATION. $ Given 01/19/2023 12:48 PM EDT 5 mg $ Given 01/18/2023 9:16 PM EDT 5 mg $ Given 01/18/2023 10:06 AM EDT 5 mg pantoprazole (PROTONIX) EC tablet 40 mg 40 mg, Oral, DAILY AT 0600, First dose on Sun01/09/23 at 0600, For 365 days, Do NOT crush, break, or chew. Take on an empty stomach at least 30 minutes before food. $ Given 01/19/2023 4:38 AM EDT 40 mg $ Given 01/18/2023 5:02 AM EDT 40 mg $ Given 01/17/2023 6:15 AM EDT 40 mg perflutren lipid microsphere (DEFINITY) 10 mL injection 1.43 mg, Intravenous, CRD ONCE, On Cindy 23 at 1600, For 1 dose, Dilute 1.3 mL of perflutren lipid microspheres with 8.7 mL of sodium chloride and slowly administer as needed for visualization. $ Given 12/28/2022 3:20 PM EDT 2 mL perflutren lipid microsphere (DEFINITY) 10 mL injection 1.43 mg, Intravenous, CRD ONCE, On Sun01/09/23 at 0655, For 1 dose, Dilute 1.3 mL of perflutren lipid microspheres with 8.7 mL of sodium chloride and slowly administer as needed for visualization. $ Given 01/09/2023 6:55 AM EDT 2 mL phenoL (CHLORASEPTIC) 1.4 % oral spray 1 [place] 1 [place], Mucous Membrane, NEEDED, Sore throat, Starting on Sun01/09/23 at 1436, For 30 days, Same as Chloraseptic [place]. $ Given 01/10/2023 7:29 PM EDT 1 [place] $ Given 01/10/2023 9:00 AM EDT 1 [place] polyethylene glycol (GLYCOLAX) packet 17 g 17 g (0.134 g/kg), Oral, DAILY, First dose on Sun01/10/23 at 1000, For 365 days, Use for Miralax. 17 grams = 1 packet. Mix in 8 ounces of juice or water. $ Given 01/17/2023 8:32 AM EDT 17 g $ Given 01/16/2023 8:14 AM EDT 17 g $ Given 01/15/2023 9:38 AM EDT 17 g potassium chloride (KLOR-CON M20) CR tablet 20 mEq 20 mEq, Oral, ONCE, On Sun01/14/23 at 0800, For 1 dose, To suspend: * Place the whole tablet [...] water, swirl, and administer immediately. $ Given 01/14/2023 8:08 AM EDT 20 mEq potassium chloride (KLOR-CON M20) CR tablet 20 mEq 20 mEq, Oral, ONCE, On Sun01/14/23 at 1730, For 1 dose, To suspend: * Place the whole tablet [...] water, swirl, and administer immediately. $ Given 01/14/2023 6:05 PM EDT 20 mEq potassium chloride (KLOR-CON M20) CR tablet 20 mEq 20 mEq, Oral, ONCE, On Sun01/16/23 at 0730, For 1 dose, Serum Potassium 3.5 - 3.7 and may have a combination of parenteral and enteral replacement $ Given 01/16/2023 7:30 AM EDT 20 mEq potassium chloride (KLOR-CON M20) CR tablet 40 mEq 40 mEq, Oral, ONCE, On Sun01/06/23 at 0440, For 1 dose $ Given 01/06/2023 5:38 AM EDT 40 mEq potassium chloride (KLOR-CON M20) CR tablet 40 mEq 40 mEq, Oral, ONCE, On Sun01/10/23 at 1705, For 1 dose $ Given 01/10/2023 5:49 PM EDT 40 mEq potassium chloride (KLOR-CON M20) CR tablet 40 mEq 40 mEq, Oral, ONCE, On Sun01/12/23 at 0715, For 1 dose, Serum Potassium 3.2 - 3.4 and may have a combination of parenteral and enteral replacement $ Given 01/12/2023 7:55 AM EDT 40 mEq potassium chloride (KLOR-CON M20) CR tablet 40 mEq 40 mEq, Oral, ONCE, On Sun01/13/23 at 0750, For 1 dose, Serum Potassium 3.5 - 3.7 and may have a combination of parenteral and enteral replacement $ Given 01/13/2023 8:00 AM EDT 40 mEq potassium chloride (KLOR-CON M20) CR tablet 40 mEq 40 mEq, Oral, ONCE, On Sun01/14/23 at 0720, For 1 dose, Serum Potassium 3.2 - 3.4 and may have a combination of parenteral and enteral replacement $ Given 01/14/2023 8:08 AM EDT 40 mEq potassium chloride (KLOR-CON M20) CR tablet 40 mEq 40 mEq, Oral, ONCE, On Sun01/15/23 at 1850, For 1 dose, Serum Potassium 3.2 - 3.4 and may have a combination of parenteral and enteral replacement $ Given 01/15/2023 6:13 PM EDT 40 mEq potassium chloride (KLOR-CON M20) CR tablet 40 mEq 40 mEq, Oral, ONCE, On Sun01/17/23 at 0655, For 1 dose, Serum Potassium 3.2 - 3.4 and may have a combination of parenteral and enteral replacement $ Given 01/17/2023 6:21 AM EDT 40 mEq potassium chloride (KLOR-CON M20) CR tablet 40 mEq 40 mEq, Oral, ONCE, On Sun01/17/23 at 0840, For 1 dose, Serum Potassium 3.2 - 3.4 and may have a combination of parenteral and enteral replacement $ Given 01/17/2023 8:33 AM EDT 40 mEq potassium chloride (KLOR-CON M20) CR tablet 40 mEq 40 mEq, Oral, ONCE, On Sun01/18/23 at 0655, For 1 dose, Serum Potassium 3.2 - 3.4 and may have a combination of parenteral and enteral replacement $ Given 01/18/2023 6:36 AM EDT 40 mEq potassium chloride (KLOR-CON M20) CR tablet 40 mEq 40 mEq, Oral, ONCE, On Sun01/19/23 at 0730, For 1 dose, Serum Potassium 3.2 - 3.4 and may have a combination of parenteral and enteral replacement $ Given 01/19/2023 7:30 AM EDT 40 mEq potassium chloride (KLOR-CON M20) CR tablet 40 mEq 40 mEq, Oral, ONCE, On Sun01/19/23 at 1200, For 1 dose, Serum Potassium 3.2 - 3.4 and may have a combination of parenteral and enteral replacement $ Given 01/19/2023 12:00 PM EDT 40 mEq potassium chloride in water 20 mEq/100 mL IVPB (premix) 20 mEq 20 mEq, Central Venous Line, at 50 mL/hr, Administer over 120 Minutes, NEEDED, Other, Maintain K+ 4-5., Starting on Sun01/08/23 at 1232, For 30 days, Maintain K+ 4-5. Place order and draw potassium level 2 hours after bolus infused. $ New Bag/Syringe 01/08/2023 6:27 PM EDT 20 mEq 50 mL/hr $ New Bag/Syringe 01/08/2023 1:49 PM EDT 20 mEq 50 mL/ hr potassium chloride in water 20 mEq/100 mL IVPB (premix) 20 mEq 20 mEq, Central Venous Line, at 100 mL/hr, Administer over 1 Hours, EVERY 1 HOUR, First dose on Sun01/10/23 at 0120, For 3 doses, Give 20 mEq x 3 doses (60 mEq total) for serum potassium of 3 mEq/L or LESS- Infuse each bag over 1 hour x 3 -Central Line ONLY $ New Bag/Syringe 01/10/2023 2:19 AM EDT 20 mEq 100 mL/hr $ New Bag/Syringe 01/10/2023 1:20 AM EDT 20 mEq 100 mL /hr $ New Bag/Syringe 01/10/2023 12:26 AM EDT 20 mEq 100 m L/hr potassium chloride in water 20 mEq/100 mL IVPB (premix) 20 mEq 20 mEq, Intravenous, at 50 mL/hr, Administer over 2 Hours, ONCE, On Sun01/17/23 at 0655, For 1 dose, Infuse 20 mEq over 2 hours for serum potassium 3.5-3.7 mEq/L $ New Bag/Syringe 01/17/2023 6:21 AM EDT 20 mEq 50 mL/hr propofoL (DIPRIVAN) infusion (premix) 20 mcg/kg/min ? 124.6 kg (14.952 mL/hr, rounded to 15 mL/hr), Intravenous, CONTINUOUS, Starting on Sun01/08/23 at 1235, For 48 hours, Initial rate 20mcg/kg/min. Discontinue within 1 hour of ICU arrival if chest tube output less than 100 mL/hour. Rate Change 01/08/2023 2:00 PM EDT 40 mcg/kg/min 29.9 mL/hr $ New Bag/Syringe 01/08/2023 1:00 PM EDT 40 mcg/kg/min 29. 9 mL/hr Rate/Dose Verify 01/08/2023 12:40 PM EDT 50 mcg/kg/min 37. 4 mL/hr sevelamer carbonate (RENVELA) packet 0.8 g 0.8 g, Oral, THREE TIMES A DAY WITH MEALS, First dose on Cindy 01/04/23 at 0800, For 365 days, Mix with 30 mL of water and administer within 30 minutes., On hold since Sun01/10/2023 at 0916 until manually unheld $ Given 01/10/2023 8:58 AM EDT 0.8 g $ Given 01/09/2023 5:40 PM EDT 0.8 g $ Given 01/09/2023 12:28 PM EDT 0.8 g sod phos di, mono-K phos mono (K PHOS NEUTRAL) per tablet 1 Tablet 1 Tablet, Oral, ONCE, On Sun01/16/23 at 0730, For 1 dose, Phosphorus = 8 mmol/tab, Potassium = 1.1 mEq/tab, Sodium = 13 mEq/tab. Use for K Phos neutral. Give with at least 8 oz of water. For tube administration, crush and dissolve in 6-8 oz of water. $ Given 01/16/2023 8:13 AM EDT 1 Tablet sod phos di, mono-K phos mono (K PHOS NEUTRAL) per tablet 1 Tablet 1 Tablet, Oral, ONCE, On Sun01/17/23 at 0655, For 1 dose, Phosphorus = 8 mmol/tab, Potassium = 1.1 mEq/tab, Sodium = 13 mEq/tab. Use for K Phos neutral. Give with at least 8 oz of water. For tube administration, crush and dissolve in 6-8 oz of water. $ Given 01/17/2023 6:20 AM EDT 1 Tablet sod phos di, mono-K phos mono (K PHOS NEUTRAL) per tablet 1 Tablet 1 Tablet, Oral, ONCE, On Sun01/18/23 at 0655, For 1 dose, Phosphorus = 8 mmol/tab, Potassium = 1.1 mEq/tab, Sodium = 13 mEq/tab. Use for K Phos neutral. Give with at least 8 oz of water. For tube administration, crush and dissolve in 6-8 oz of water. $ Given 01/18/2023 6:36 AM EDT 1 Tablet sodium chloride 0.9 % flush 3 mL 3 mL, Intravenous, EVERY 8 HOURS, First dose on Sun01/11/23 at 2200, For 30 days, Aspirate lock to ensure patency; flush with 3 ml of NaCl. If a medication is administered, flush before and after administration. $ Given 01/19/2023 2:00 PM EDT 3 mL $ Given 01/19/2023 4:38 AM EDT 3 mL $ Given 01/18/2023 9:13 PM EDT 3 mL sodium chloride 0.9 % flush 5 mL 5 mL, Intravenous, EVERY 6 HOURS, First dose on Sun01/08/23 at 1235, For 30 days, Peripheral IV flush $ Given 01/09/2023 5:40 PM EDT 5 mL $ Given 01/09/2023 5:56 AM EDT 5 mL $ Given 01/08/2023 11:04 PM EDT 5 mL spironolactone (ALDACTONE) tablet 25 mg 25 mg, Oral, DAILY, First dose on Sun01/09/23 at 0525, For 365 days, Fall Risk Medication $ Given 01/19/2023 9:17 AM EDT 25 mg $ Given 01/18/2023 8:47 AM EDT 25 mg $ Given 01/17/2023 8:33 AM EDT 25 mg thiamine mononitrate (VITAMIN B-1) tablet 100 mg 100 mg, Oral, DAILY, First dose on Sun01/15/23 at 1000, For 365 days $ Given 01/19/2023 9:17 AM EDT 100 mg $ Given 01/18/2023 8:48 AM EDT 100 mg $ Given 01/17/2023 8:33 AM EDT 100 mg tiotropium (SPIRIVA) 18 mcg per inhalation capsule 1 Capsule 1 Capsule, Inhalation, RT DAILY, First dose (after last reorder) on Sun01/09/23 at 1000, For 365 doses $ Given 01/19/2023 10:00 AM EDT 1 Capsule $ Given 01/18/2023 8:48 AM EDT 1 Capsule $ Given 01/17/2023 8:44 AM EDT 1 Capsule tolvaptan (SAMSCA) tablet 15 mg 15 mg, Oral, ONCE, On Sun01/07/23 at 1510, For 1 dose, Fluid restrictions are contraindicated. Discontinue orders for fluid restrictions prior to initiating therapy with tolvaptan. $ Given 01/07/2023 3:51 PM EDT 15 mg torsemide (DEMADEX) tablet 60 mg 60 mg, Oral, TWICE A DAY DIURETICS, First dose on Sun01/16/23 at 0930, For 365 days, Fall Risk Medication $ Given 01/19/2023 4:00 PM EDT 60 mg $ Given 01/19/2023 4:38 AM EDT 60 mg $ Given 01/18/2023 4:24 PM EDT 60 mg traZODone (DESYREL) tablet 100 mg 100 mg, Oral, EVERY EVENING, First dose (after last modification) on Sun01/09/23 at 2200, For 364 doses, Fall Risk Medication , On hold since Sun01/10/2023 at 0239 until manually unheld $ Given 01/09/2023 9:23 PM EDT 100 mg traZODone (DESYREL) tablet 50 mg 50 mg, Oral, ONCE, On Sun01/07/23 at 2140, For 1 dose, Fall Risk Medication $ Given 01/07/2023 10:31 PM EDT 50 mg traZODone (DESYREL) tablet 50 mg 50 mg, Oral, EVERY EVENING, First dose on Sun01/08/23 at 2245, For 365 days, Fall Risk Medication $ Given 01/08/2023 10:59 PM EDT 50 mg vancomycin (VANCOCIN) 1,000 mg in sodium chloride 0.9 % 250 mL IVPB 1,000 mg (8.64 mg/kg), Intravenous, at 250 mL/hr, Administer over 1 Hours, ONCE, On Sun01/13/23 at 0600, For 1 dose, Indications: Perioperative Prophylaxis $ New Bag/Syringe 01/13/2023 6:31 AM EDT 1,000 mg 250 mL/hr vancomycin (VANCOCIN) 2,000 mg in sodium chloride 0.9 % 500 mL IVPB 2,000 mg (17.3 mg/kg), Intravenous, at 250 mL/hr, Administer over 2 Hours, ONCE, On Sun01/12/23 at 1500, For 1 dose, Indications: Perioperative Prophylaxis $ New Bag/Syringe 01/12/2023 3:20 PM EDT 2,000 mg 250 mL/hr documented in this encounter Active and Recently Administered Medications Times are shown in EDT. Scheduled Medication Order 01/17/2023 01/18/2023 01/19/2023 aspirin EC tablet 81 mg 81 mg, Oral, DAILY, First dose (after last modification) on Sun01/09/23 at 1000, For 30 days, Do NOT open, crush, break, or chew. Give with food and a full glass of water to reduce GI upset. 0833 ($ Given - Provider: Flip Moscoso RN) 0847 ($ Given - Provider: Flip Moscoso RN) 0917 ($ Given - Provider: Mary Chavez, RN) bisacodyL (DULCOLAX) EC tablet 5 mg 5 mg, Oral, DAILY, First dose on Sun01/10/23 at 1000, For 365 days, Do NOT crush, break, or chew. 0832 ($ Given - Provider: Flip Moscoso RN) 0848 ($ Given - Provider: Flip Moscoso RN) 0917 ($ Given - Provider: Mary Chavez, RN) clopidogreL (PLAVIX) tablet 75 mg 75 mg, Oral, DAILY, First dose on Sun01/09/23 at 1000, For 30 days 0833 ($ Given - Provider: Flip Moscoso RN) 0848 ($ Given - Provider: Flip Moscoso RN) 0917 ($ Given - Provider: Mary Chavez RN) enoxaparin (LOVENOX) 40 mg/0.4 mL injection 40 mg 40 mg, Subcutaneous, DAILY AT 1600, First dose (after last modification) on Sun01/17/23 at 0745, For 365 days, Inject at a 90 [...] risks when scheduling patients for spinal procedures. 0833 ($ Given - Provider: Flip Moscoso RN) 1624 ($ Given - Provider: Flip Moscoso RN) 1600 ($ Given - Provider: Mary Chavez RN) escitalopram (LEXAPRO) tablet 20 mg 20 mg, Oral, DAILY, First dose on Sun12/29/22 at 1000, For 365 days, Fall Risk Medication 0833 ($ Given - Provider: Flip Moscoso RN) 0848 ($ Given - Provider: Flip Moscoso RN) 0917 ($ Given - Provider: Mary Chavez RN) fenofibrate (TRICOR) tablet 145 mg 145 mg, Oral, WITH BREAKFAST, First dose on 12/30/22 at 1525, For 365 days 0833 ($ Given - Provider: Flip Moscoso RN) 0848 ($ Given - Provider: Flip Moscoso RN) 0800 ($ Given - Provider: Mary Chavez RN) ferrous sulfate EC tablet 325 mg 325 mg, Oral, EVERY 48 HOURS, First dose on 01/14/23 at 1800, For 365 days, Use for doses of 300mg or 325mg 1515 ($ Given - Provider: Flip Moscoso RN) 1624 ($ Given - Provider: Flip Moscoso RN) folic acid (FOLVITE) tablet 1 mg 1 mg, Oral, DAILY, First dose on 01/14/23 at 1810, For 365 days, Use for Folate or Folvite. 0833 ($ Given - Provider: Flip Moscoso RN) 0848 ($ Given - Provider: Flip Moscoso RN) 0917 ($ Given - Provider: Mary Chavez RN) gabapentin (NEURONTIN) capsule 100 mg 100 mg, Oral, AT BEDTIME, First dose (after last modification) on Sun01/09/23 at 2200, For 359 doses, Fall Risk Medication 205 ($ Given - Provider: Nela Olmos RN) 211 ($ Given - Provider: Maru Leblanc RN) hydrOXYzine (VISTARIL) capsule 50 mg (COMPLETED) 50 mg, Oral, ONCE, On Sun01/17/23 at 1450, For 1 dose, Fall Risk Medication 1515 ($ Given - Provider: Flip Moscoso RN) insulin lispro (HumaLOG) 100 units/mL sensitivity factor injection Subcutaneous, FOUR TIMES A DAY WITH MEALS & BEDTIME, First dose on Cindy 01/11/23 at 1800, For 365 days, Document administration site. Give this correctional (sensitivity factor) insulin at the calculated dose even if the patient does not eat or is NPO., Target Glucose Value (mg/dL): 140, Insulin Sensitivity Factor: 40 0800 (Not Given - Provider: Flip Moscoso RN - Reason: Other (See Comment))1200 (Not Given - Provider: Flip Moscoso RN - Reason: Other (See Comment))1800 (Not Given - Provider: Flip Moscoso RN - Reason: Other (See Comment))2200 (Not Given - Provider: Nela Olmos RN - Reason: Contraindicated) 0800 (Not Given - Provider: Flip Moscoso RN - Reason: Other (See Comment))1200 (Not Given - Provider: Flip Moscoso RN - Reason: Other (See Comment))1800 (Not Given - Provider: Flip Moscoso RN - Reason: Other (See Comment))2200 (Not Given - Provider: Maru Leblanc RN - Reason: Contraindicated) 0800 (Not Given - Provider: Mary Chavez RN - Reason: Contraindicated)1200 (Not Given - Provider: Mary Chavez RN - Reason: Contraindicated) magnesium oxide (MAG-OX) tablet 800 mg (COMPLETED) 800 mg, Oral, ONCE, On Sun01/17/23 at 0655, For 1 dose 0620 ($ Given - Provider: Indigo Shi RN) magnesium sulfate in D5W infusion 1 g (COMPLETED) 1 g, Intravenous, at 33.3 mL/hr, Administer over 3 Hours, ONCE, On Sun01/19/23 at 0740, For 1 dose, Recommended for Serum Magnesium 1.6 - 1.9 mg/dL 0740 ($ New Bag/Syringe - Provider: Mary Chavez RN)1040 (Stopped - Provider: Mary Chavez RN) magnesium sulfate in SWI 2 gram/50 mL IVPB (premix) 2 g (COMPLETED) 2 g, Intravenous, at 25 mL/hr, Administer over 2 Hours, ONCE, On Sun01/17/23 at 2235, For 1 dose, Recommended for serum magnesium 1 to 1.5 mg/dL 220 ($ New Bag/Syringe - Provider: Nela Olmos, JULIA) 0001 (Stopped - Provider: Nela Olmos RN) melatonin tablet Tab 5 mg 5 mg, Oral, AT BEDTIME, First dose on Sun01/13/23 at 2200, For 365 days 2056 ($ Given - Provider: Nela Olmos, JULIA) 2110 ($ Given - Provider: Maru Leblanc RN) metoprolol succinate XL (TOPROL-XL) 24 hr tablet 25 mg 25 mg, Oral, DAILY, First dose on Sun01/17/23 at 1000, For 365 days, Do NOT crush or chew. May break in half. 0844 ($ Given - Provider: lFip Moscoso RN) 0847 ($ Given - Provider: Flip Moscoso RN) 0917 ($ Given - Provider: Mary Chavez, RN) pantoprazole (PROTONIX) EC tablet 40 mg 40 mg, Oral, DAILY AT 0600, First dose on Sun01/09/23 at 0600, For 365 days, Do NOT crush, break, or chew. Take on an empty stomach at least 30 minutes before food. 0615 ($ Given - Provider: Indigo Shi, JULIA) 0502 ($ Given - Provider: Nela Olmos RN) 0438 ($ Given - Provider: Maru Leblanc RN) polyethylene glycol (GLYCOLAX) packet 17 g 17 g (0.134 g/kg), Oral, DAILY, First dose on Sun01/10/23 at 1000, For 365 days, Use for Miralax. 17 grams = 1 packet. Mix in 8 ounces of juice or water. 0832 ($ Given - Provider: Flip Moscoso RN) 1000 (Not Given - Provider: Flip Moscoso RN - Reason: Patient/family refused) 0917 (Not Given - Provider: Mary Chavez RN - Reason: Patient/family refused) potassium chloride (KLOR-CON M20) CR tablet 40 mEq (COMPLETED) 40 mEq, Oral, ONCE, On Sun01/17/23 at 0655, For 1 dose, Serum Potassium 3.2 - 3.4 and may have a combination of parenteral and enteral replacement 0621 ($ Given - Provider: Indigo Shi RN) potassium chloride (KLOR-CON M20) CR tablet 40 mEq (COMPLETED) 40 mEq, Oral, ONCE, On Sun01/17/23 at 0840, For 1 dose, Serum Potassium 3.2 - 3.4 and may have a combination of parenteral and enteral replacement 0833 ($ Given - Provider: Flip Moscoso, JULIA) potassium chloride (KLOR-CON M20) CR tablet 40 mEq (COMPLETED) 40 mEq, Oral, ONCE, On Sun01/18/23 at 0655, For 1 dose, Serum Potassium 3.2 - 3.4 and may have a combination of parenteral and enteral replacement 0636 ($ Given - Provider: Nela Olmos RN) potassium chloride (KLOR-CON M20) CR tablet 40 mEq (COMPLETED) 40 mEq, Oral, ONCE, On Sun01/19/23 at 0730, For 1 dose, Serum Potassium 3.2 - 3.4 and may have a combination of parenteral and enteral replacement 0730 ($ Given - Provider: Mary Chavez RN) potassium chloride (KLOR-CON M20) CR tablet 40 mEq (COMPLETED) 40 mEq, Oral, ONCE, On Sun01/19/23 at 1200, For 1 dose, Serum Potassium 3.2 - 3.4 and may have a combination of parenteral and enteral replacement 1200 ($ Given - Provider: Mary Chavez RN) potassium chloride in water 20 mEq/100 mL IVPB (premix) 20 mEq (COMPLETED) 20 mEq, Intravenous, at 50 mL/hr, Administer over 2 Hours, ONCE, On Sun01/17/23 at 0655, For 1 dose, Infuse 20 mEq over 2 hours for serum potassium 3.5-3.7 mEq/L 0621 ($ New Bag/Syringe - Provider: Indigo Shi RN)0730 (Stopped - Provider: Flip Moscoso RN) sod phos di, mono-K phos mono (K PHOS NEUTRAL) per tablet 1 Tablet (COMPLETED) 1 Tablet, Oral, ONCE, On Sun01/17/23 at 0655, For 1 dose, Phosphorus = 8 mmol/tab, Potassium = 1.1 mEq/tab, Sodium = 13 mEq/tab. Use for K Phos neutral. Give with at least 8 oz of water. For tube administration, crush and dissolve in 6-8 oz of water. 0620 ($ Given - Provider: Indigo Shi RN) sod phos di, mono-K phos mono (K PHOS NEUTRAL) per tablet 1 Tablet (COMPLETED) 1 Tablet, Oral, ONCE, On Sun01/18/23 at 0655, For 1 dose, Phosphorus = 8 mmol/tab, Potassium = 1.1 mEq/tab, Sodium = 13 mEq/tab. Use for K Phos neutral. Give with at least 8 oz of water. For tube administration, crush and dissolve in 6-8 oz of water. 0636 ($ Given - Provider: Nela Olmos RN) sodium chloride 0.9 % flush 3 mL 3 mL, Intravenous, EVERY 8 HOURS, First dose on Sun01/11/23 at 2200, For 30 days, Aspirate lock to ensure patency; flush with 3 ml of NaCl. If a medication is administered, flush before and after administration. 0615 ($ Given - Provider: Indigo Shi RN)1400 ($ Given - Provider: Flip Moscoso RN)2200 ($ Given - Provider: Nela Olmos RN) 0600 ($ Given - Provider: Nela Olmos RN)1400 ($ Given - Provider: Flip Moscoso, JULIA)2113 ($ Given - Provider: Maru Leblanc RN) 0438 ($ Given - Provider: Maru Leblanc RN)1400 ($ Given - Provider: Mary Chavez, JULIA) spironolactone (ALDACTONE) tablet 25 mg 25 mg, Oral, DAILY, First dose on Sun01/09/23 at 0525, For 365 days, Fall Risk Medication 0833 ($ Given - Provider: Flip Moscoso RN) 0847 ($ Given - Provider: Flip Moscoso RN) 0917 ($ Given - Provider: Mary Chavez, JULIA) thiamine mononitrate (VITAMIN B-1) tablet 100 mg 100 mg, Oral, DAILY, First dose on Sun01/15/23 at 1000, For 365 days 0833 ($ Given - Provider: Flip Moscoso RN) 0848 ($ Given - Provider: Flip Moscoso RN) 0917 ($ Given - Provider: Mary Chavez, RN) tiotropium (SPIRIVA) 18 mcg per inhalation capsule 1 Capsule 1 Capsule, Inhalation, RT DAILY, First dose (after last reorder) on Sun01/09/23 at 1000, For 365 doses 0844 ($ Given - Provider: Flip Moscoso RN) 0848 ($ Given - Provider: Flip Moscoso RN) 1000 ($ Given - Provider: Mary Chavez, JULIA) torsemide (DEMADEX) tablet 60 mg 60 mg, Oral, TWICE A DAY DIURETICS, First dose on Sun01/16/23 at 0930, For 365 days, Fall Risk Medication 0615 ($ Given - Provider: Indigo Shi RN)1515 ($ Given - Provider: Flip Moscoso, RN) 0502 ($ Given - Provider: Nela Olmos, JULIA)1624 ($ Given - Provider: Flip Moscoso, JULIA) 0438 ($ Given - Provider: Maru Leblanc, RN)1600 ($ Given - Provider: Mary Chavez, JULIA) PRN Medication Order 01/17/2023 01/18/2023 01/19/2023 albuterol HFA (PROVENTIL HFA;VENTOLIN HFA) 90 mcg/actuation inhaler 2 Puff(Linked Group 1) 2 Puff, Inhalation, EVERY 4 HOURS NEEDED, Shortness of Breath, Starting on Sun01/10/23 at 1606, For 365 days, RN to administer. Rk well. Med Disposal - Aerosol dextrose (DIABETIC USE) 40 % oral gel 6 g glucose 6 g glucose (15 g), Oral, NEEDED, Hypoglycemia, hypoglycemia-preferred method of treating hypoglycemia, Starting on Cindy 01/11/23 at 1639, For 30 days, 37.5 g of Oral Gel = 15 g of glucose. dextrose 50% in water (D50W) injection 25 mL 25 mL, Intravenous, NEEDED, Hypoglycemia, Blood glucose 55-69 mg/dL--for unresponsive, altered mental status, seizures, or NPO status, Starting on Cindy 01/11/23 at 1639, For 365 days dextrose 50% in water (D50W) injection 50 mL 50 mL, Intravenous, NEEDED, Hypoglycemia, Blood glucose 54 mg/dL or less--for unresponsive, altered mental status, seizures, or NPO status, Starting on Cindy 01/11/23 at 1639, For 365 days ondansetron (ZOFRAN) injection 4 mg 4 mg (0.0321 mg/kg), Intravenous, EVERY 6 HOURS NEEDED, Nausea, Vomiting, Starting on 01/08/23 at 1232, For 30 days, Doses 4 mg or less can be administered IV push over 3-5 minutes. Doses over 4 mg should be diluted and infused over 15 minutes. oxyCODONE (ROXICODONE) immediate release tablet 5 mg 5 mg, Oral, EVERY 4 HOURS NEEDED, Severe Pain, Unrelieved Pain, Starting on Sun01/14/23 at 1707, For 365 days, FALL RISK MEDICATION. 0719 ($ Given - Provider: Flip Moscoso, RN)1406 ($ Given - Provider: Flip Moscoso, RN)1929 ($ Given - Provider: Nela Olmos, JULIA) 0000 ($ Given - Provider: Nela Olmos RN)0410 ($ Given - Provider: Nela Olmos, RN)1006 ($ Given - Provider: Flip Moscoso, RN)2116 ($ Given - Provider: Maru Leblanc RN) 1248 ($ Given - Provider: Mary Chavez RN) phenoL (CHLORASEPTIC) 1.4 % oral spray 1 [place] 1 [place], Mucous Membrane, NEEDED, Sore throat, Starting on Sun01/09/23 at 1436, For 30 days, Same as Chloraseptic [place]. Linked Groups Order Group 1: albuterol HFA (PROVENTIL HFA;VENTOLIN HFA) 90 mcg/actuation inhaler 2 PuffJump to med 2 Puff, Inhalation, EVERY 4 HOURS NEEDED, Shortness of Breath, Starting on Sun01/10/23 at 1606, For 365 days, RN to administer. Shake well. Med Disposal - Aerosol And ADMINISTRATION, EVALUATION AND EDUCATION OF MDI OR DPI BY RT ORDERED (COMPLETED) ORDERED - RT ONLY, Starting on Sun01/10/23 at 1607, Until Specified, Routine documented in this encounter Care Teams Waste Reduction Coordinator Relationship Specialty Start Date End Date Williams Yip MD [address] [place] [id number] PCP - General Cardiology 12/29/22 Nela Trejo [address] [place] [address] 01/02/23 documented as of this encounter Additional [...] prosecute any alcohol or drug abuse patient. [facility]
--- OUTSIDE RECORDS SUMMARY | 2024-09-23 14:17 | XMS_ITS | Encounter Summary ---
Author Organization [facility] edulio (a.k.a. [facility]) Address [address] [place] [address] Care Team Providers Care Axle Inspector Name Role Phone Williams Yip MD Primary Care Provider [phone] Nela Trejo Unavailable Unavailable Reason for Visit * Inpatient Auth/Cert (Routine) Specialty Diagnoses / Procedures Referred By Contac t Referred To Contact Diagnoses NSTEMI (non-ST elevated myocardial infarction) (CMS/HCC) (CMS-HCC) (CMS/HCC) ([facility]) NSTEMI Referral ID Status Reason Start Date Expiration Date Visits Re quested Visits Authorized [id number] 1 1 Encounter Details Date Type Department Care Team (Late st Contact Info) Description 01/08/2023 7:50 AM EDT Anesthesia Event [facility] - Cardiovascular Operating Room [address] [facility] [address] [place] [id number] Aaron Gaspar MD [address] [place] [address] Yuliet Shea Anesthesia Record Procedure Summary Procedure Name Responsible Anesthesiologist Anesthesia Start Time Anesthesia Stop Time REPLACEMENT, AORTIC VALVE, TRANSCATHETER, FEMORAL APPROACH (MEDTRONIC 26 ELSA); Intraoperative Echocardiogram (Left: Groin) Aaron Gaspar MD 01/08/23 0750 01/08/23 1232 Events Date Time Event Comment 01/08/2023 0655 0750 Anes Start -Anesthesia equ ipment and monitors checked preoperatively -Patient identified -Chart reviewed -Monitors placed -Pre-induction/sedation assessment in progress 0832 Induction -Pre-induction assessment completed. -Vital signs stable (see graphical display). -No changes in patient status since pre-op assessment. -Pre-oxygenation with 100% oxygen. -Ventilates easily. 0835 Intubation 0842 Anes Ready 0844 Position Start 0911 Proc Start 1002 Hep In 1119 Protamine 1202 Proc Closing 1207 Drsg Begin 1217 Drsg End 1217 Proc Stop 1218 ICU Transport Transport gianna toring EKG, arterial pressure, pulse oximeter, with endotracheal tube in place and with AMBU bag and oxygen 1218 Out of OR Patient transpo rted to recovery location with oxygen. 1231 Handoff to RN I completed my handoff to the receiving nurse during which we: 1. Identified the patient 2. Identified the responsible provider 3. Reviewed the pertinent medical history 4. Discussed the surgical course 5. Reviewed intra-op anesthesia management and issues during anesthesia 6. Set expectations for post-procedure period 7. Allowed opportunity for questions and acknowledgement of understanding. 1232 Anes Stop Meds Name Total midazolam (PF) (VERSED) 5 mg/mL injectio n 6 mg fentanyl (SUBLIMAZE) 0.05 mg/mL injectio n 100 mcg etomidate (AMIDATE) 2 mg/mL injection 20 mg rocuronium (ZEMURON) 10 mg/mL injection 110 mg hepARIN (porcine) (hepARIN) 1,000 unit/m L injection 16,000 Units protamine 10 mg/mL injection 50 mg diphenhydramine (BENADRYL) 50 mg/mL inje ction 50 mg famotidine (PEPCID) 20 mg/2 mL injection 20 mg methylprednisolone sodium floyd cc (SOLU-MEDROL) 125 mg/2 mL injection 125 mg propofol (DIPRIVAN) 10mg/mL continuous I V infusion 435.48 mg furosemide in NS (LASIX) 160 mg/50 mL (3.2 mg/mL) infusion (premade) Cannot be calculated cefUROXime (ZINACEF) 1.5 g i n sodium chloride MBP 0.9% 100 mL IVPB 1.5 g lidocaine PF (XYLOCAINE) 10 mg/mL (1 %) injection 1 mL lidocaine PF (XYLOCAINE - PF) 2 % inject ion 100 mg norepinephrine bitartrate-NS (LEVOPHED) 4 mg/250 mL (16 mcg/mL) infusion (premix) 1.06 mg amiodarone (CORDARONE) 50 mg/mL injectio n 150 mg EPINEPHrine (ADRENALIN) 10 m cg/mL in dextrose 5% in water (D5W) 250 mL CSICU ONLY infusion 0.16 mg potassium chloride in water 20 mEq/100 m L IVPB (premix) 20 mEq calcium chloride 100 mg/mL (10 %) inject ion 1,000 mg neostigmine (BLOXIVERZ) 5 mg/5 mL (1 mg/ mL) injection 5 mg glycopyrrolate (PF) in water (ROBINUL) 1 mg/5 mL (0.2 mg/mL) injection 0.8 mg sodium chloride 0.9% infusion 1,000 mL sodium chloride 0.9% infusion 0 mL * Agents Name EtO2 O2 eN2O eSevo Cumulated Desflurane Consump tion Cumulated Isoflurane Consump tion Cumulated Sevoflurane Consum ption * Blood No blood administrations on file. Lines, Drains, and Airways Type Details Placement Removal Wound 01/08/23; 1223 (surg ical incision from OR); Incision; Groin; Left 01/08/23 1223 by Tyler Lockwood RN Wound 01/08/23; 1223; Inci giselle; Groin; Right 01/08/23 1223 by Tyler Lockwood RN Peripheral Line Placement Time: 2300 ; Insertion Explained To: Patient; Side: Right; Location: Forearm; Location Detailed: Anterior; Size: 20 Gauge; Equipment Used: Ultrasound; Placed By: JULIA Rodriguez VAT; Adverse Response Line Insertion: No; Removal Date: 01/20/23; Removal Time: 1116; Removal Explained To: Patient & S/O; Removal Site Appearance: WNL; Removal Dressing: Dressing Applied, Pressure Applied; Adverse Response IV Removal: No; Reason for Removal: Leaking 01/06/23 2300 by Michael Talavera RN 01/20/23 1116 by Willis Soto RN Peripheral Line Placement Time: 0630 ; Insertion Explained To: Patient; Side: Left; Location: Antecubital; Size: 18 Gauge; # of Attempts: 1; Placed By: Marietta Beck RN; Adverse Response Line Insertion: No; Removal Date: 01/10/23; Removal Time: 1347; Removal Explained To: Patient; Removal Site Appearance: WNL; Removal Dressing: Dressing Applied; Adverse Response IV Removal: No; Reason for Removal: Dislodged 01/08/23 0630 by Marietta Beck RN 01/10/23 1347 by Tran Ahn RN ETT Placement Date: 12/23 04/15; Placement Time: 0835 (created via procedure documentation); Intubation Route: Oral; ETT Type: TaperGuard; ETT Type: Taperguard; Tube Size (mm): 8.5; Direct Laryngoscopy: MAC; Laryngoscopy View: Cords Were Easily Visualized; Grade: II; Intubation Notes: Cricoid Pressure Maintained until ETC02 Confirmed (maintained until EtCO2 confirmed); Eyes protected: Taped Closed Bilat; Placed By (Name): Yuliet Shea; Total # of Attempts: 1; ETT Placement Verifed By: ETCO2; Placement verified by: EtC02 Positive & Continuous; Characteristics of Difficulty: No; Removal Date: 01/08/23; Removal Time: 1445; Extubation Explained To: Patient & S/O; Extubated By: Yumi Urban RCP; Patient Tolerance: No Significant Change; Post Extubation Care: O2 01/08/23 0835 by Yuliet Shea 01/08/23 1445 by Gal Urban RCP A-Line Placement Time: 0839 (created via procedure documentation); Location: Left Brachial; Placed By: Aaron Gaspar MD; Removal Date: 01/10/23; Removal Time: 1347; Removal Explained To: Patient; Removed By: Tran Radford RN; Adverse Response Line Removal: No; Pressure Applied: Yes; Catheter Intact: Yes; Occlusive Pressure Dsg.: Yes; Reason for Removal: Therapy Completed 01/08/23 0839 by Aaron Gaspar MD 01/10/23 1347 by Tran Ahn RN Foley 01/08/23; 0839; (Pat ient under anesthesia during insertion); 2-Way Temp Sensing; 16FR; 10cc; Yes; 1; No; JULIA Luo; [facility]; 01/13/23; 1415; Patient; Yes; No; Casi Comisford RN; Positive Culture 01/08/23 0839 by Kanika Mcelroy RN 01/13/23 1415 by Casi Norton RN Percutaneous Introducer Sheath Placement Time: 1111 (created via procedure documentation); Location: Right Internal Jugular; Placed By: Aaron Gaspar MD; Removal Date: 01/13/23; Removal Time: 1340; Removal Explained To: Patient; Removed By: Casi Norton/Jefe romero RN; Adverse Response Line Removal: No; Pressure Applied: Yes; Catheter Intact: Yes; Occlusive Pressure Dressing: Yes; Reason for Removal: Therapy Completed 01/08/23 1111 by Aaron Gaspar MD 01/13/23 1340 by Casi Norton RN documented in this encounter Social History Tobacco Use Types Packs/Day Years Used Date Smoking Tobacco: Former Cigarettes Smokeless Tobacco: Never Sex and Gender Information Value Date Recorded [...] No 12/28/2022 documented as of this encounter Progress Notes * Art Palma CRNA - 01/09/2023 7:53 AM EDT Addendum created 01/09/23 3778 by Art Palma CRNA Clinical Note Signed documented in this encounter OR Notes * Anesthesia Postprocedure Evaluation - Art Palma CRNA - 01/09/2023 7:53 AM EDT Patient: Raghu Rosenthal Procedure Summary Date: 01/08/23 Room / Location: [address] OR [facility] Anesthesia Start: 0750 Anesthesia Stop: 1232 Procedures: REPLACEMENT, AORTIC VALVE, TRANSCATHETER, FEMORAL APPROACH (MEDTRONIC 26 ELSA); Intraoperative Echocardiogram (Left: Groin) Left Main Stent Placement (Left: Groin) Diagnosis: (Aortic Stenosis) Surgeons: Tania Hartley MD Responsible Provider: Aaron Gaspar MD Anesthesia Type: MAC ASA Status: 4 Anesthesia Type: MAC Last Vital Signs Vitals Value Taken Time BP 114/60 01/09/23 0753 Temp 36.6 ??C (97.8 ??F) 01/09/23 0400 Pulse 59 01/09/23 0600 Resp 19 01/09/23 0400 SpO2 96 % 01/09/23 0600 Pain: 0, No/denies pain Anesthesia Post Evaluation Anesthetic complications: PONV: No Recall present: No Were you completely satisfied with your anesthesia care:Yes Level of consciousness: awake and alert Airway patency: patent Respiratory status: acceptable Cardiovascular status: hemodynamically stable Hydration status: acceptable Pain management: adequate * Anesthesia Procedure Notes - Aaron Gaspar MD - 01/08/2023 11:11 AM EDTAssociated Order(s): Central Venous Line Central Venous Line Date/Time: 01/08/2023 11:11 AM Procedure Details: Sterility preparation included the following: provider hand hygiene performed prior to central venous catheter insertion, all 5 sterile barriers used (gloves, gown, cap, mask, large sterile drape) during central venous catheter insertion and skin prep agent completely dried prior to procedure. The patient was placed in Trendelenburg position. Vein prepped: right internal jugular Vessel identified by: landmarks with finder needle Introducer needle used: thin walled During the procedure, the following specific steps were taken: needle advanced into vein and blood aspirated and guidewire advanced into vein. Catheter type and size used: MAC (introducer & 2 lumen), 12 cm in length Intravenous verification was obtained by non pulsatile venous blood return. Post insertion care included: all ports aspirated, all ports flushed easily, guidewire removed intact, Biopatch was applied to entry site, line sutured in place and sterile dressing was applied. Procedure Events: Patient tolerated procedure well with no complications. PA Catheter Placement: Pulmonary artery catheter not placed SLIC placed: no. Performed by: Aaron Gaspar MD * Anesthesia Procedure Notes - Jacek Garza CRNA - 01/08/2023 8:40 AM EDTAssociated Order(s): Airway Airway General Information: Date/Time: 01/08/2023 8:35 AM Airway not difficult Indications and Patient Condition Patient position: sniffing Adequate mask vent: Yes Final Airway Details Final airway type: endotracheal airway Successful airway: Taperguard ETT size (mm): 8.5 Cuffed: yes Successful intubation technique: direct laryngoscopy Cormack-Lehane Classification: grade IIa - partial view of glottis Facilitating devices/methods: cricoid pressure and intubating stylet (maintained until EtCO2 confirmed) Endotracheal tube insertion site: oral Blade: Kevyn Blade size: #3 Placement verified by: chest auscultation and capnometry ETT secured at: right side lip cm. Inital cuff pressure (cm H2O): , MINIMALLY OCCLUSIVE PRESSURE Eyes protected: taped closed, eyes protected prior to DVL and clear tape Attempts Number of attempts at approach: 1 Lung Isolation: none Performed by: Yuliet Shea * Anesthesia Procedure Notes - Jacek Garza CRNA - 01/08/2023 8:39 AM EDTAssociated Order(s): Arterial Line Arterial Line: Date/Time: 01/08/2023 8:39 AM Procedure Details: Patient prepped in sterile fashion, timeout performed, ultrasound guided, local skin infiltration and Seldinger technique used. A 20 gauge (size) catheter was placed into the left brachial Line secured with suture, tape and Tegaderm. Medications Administered lidocaine PF (XYLOCAINE) 10 mg/mL (1 %) injection - Subcutaneous 1 mL - 01/08/2023 8:39:00 AM Events: Patient tolerated procedure well with no complications. Performed by: Aaron Gaspar MD * Anesthesia Preprocedure Evaluation - Aaron Gaspar MD - 01/08/2023 6:50 AM EDT Anesthesia Evaluation Airway Mallampati: II Hyomental Distance: > 3 Fingers Oral Opening: adequate (>3cm) Neck ROM: full Cardiovascular -regular rate and rhythm Pulmonary Breath sounds clear to auscultation Dental (+) Chipped/Broken Anesthesia Plan ASA Score: 4 Anesthesia type: MAC Induction: intravenous Post-op pain: per surgeon and multimodal analgesia used between 6 hours prior to anesthesia start to PACU discharge DNAR status: no Anesthetic plan and risks discussed with patient. Special Monitoring: arterial line Plan discussed with BUCKLE SORTER/CAA. Additional Findings/Instructions: ?? 1.?Severe three-vessel disease with patent VOGT to LAD, intermediate stenosis in mid RCA, 60% distal left main stenosis. ??Culprit for his UT appears to be an occluded SVG to ramus graft. ??There is flow in the ramus with proximal 70% stenosis. 2.?He is also noted to have severely degenerated bioprosthetic aortic valve, invasive gradients reviewed severely stenotic with mean gradient over 40 mmHg. 3.?Decompensated heart failure with preserved cardiac output. ??We had discontinued his Levophedon arrival to the Dietary Tech.??LVEDP 30mmHg.Conclusion The study was technically difficult with many images being suboptimal in quality. The left ventricular mass index is increased. E/E' averaged >13 The ejection fraction measured by 2D BP MOD is41%. Akinesis of the apex and periapical segments, anteroseptum with better motion of the LV base representing, until proven otherwise, LAD territory issues on a background of moderate aortic stenosis. Relevant Problems CARDIAC (+) Coronary artery disease (+) Hypertension (+) Mitral and aortic valve disease (+) NSTEMI (non-ST elevated myocardial infarction) (CMS/HCC) (+) Nonrheumatic aortic (valve) stenosis (+) Shock (CMS/HCC) PULMONARY (+) Mild intermittent asthma (+) Obstructive sleep apnea syndrome in adult RENAL/HEPATIC (+) Fatty liver ENDO (+) Diabetes mellitus (CMS/HCC) (+) Obesity NEURO/PSYCH (+) Cerebellar stroke syndrome (+) Depressive disorder (+) Posttraumatic stress disorder GI (+) GERD (gastroesophageal reflux disease) HEME/RHEUM (+) Arthropathic psoriasis, unspecified (CMS/HCC) (+) Osteoarthritis of both knees (+) Psoriasis with arthropathy (CMS/HCC) History: Past Medical History: Diagnosis Date ??? Coronary artery disease ??? Diverticulitis ??? Hyperlipidemia ??? Hypertension ??? Subdural hematoma (CMS/HCC) Past Surgical History: Procedure Laterality Date ??? TULIO - CORONARY ARTERY BYPASS GRAFT ??? TULIO - REPLACEMENT OF AORTIC VALVE porcine Alcohol Use: Not on file Social History Tobacco Use Smoking Status Former ??? Types: Cigarettes Smokeless Tobacco Never Social History Substance and Sexual Activity Drug Use Not on file No family history on file. ROS complete and pertinent findings documented in patient's history. Lab Results (last thirty days) Component Value Date/Time HEMOGLOBIN 9.9 (L) 01/08/2023 04:39 AM HEMOGLOBIN A1C 5.0 12/28/2022 02:17 PM HEMOGLOBIN URINALYSIS Negative 12/28/2022 06:00 PM HEMATOCRIT 30.9 (L) 01/08/2023 04:39 AM RBC 3.20 (L) 01/08/2023 04:39 AM RBC NUCLEATED 0.0 01/08/2023 04:39 AM WBC 4.78 01/08/2023 04:39 AM PLATELET 117 (L) 01/08/2023 04:39 AM POTASSIUM 3.3 (L) 01/08/2023 04:39 AM SODIUM 133 (L) 01/08/2023 04:39 AM CHLORIDE 94 (L) 01/08/2023 04:39 AM BUN 97 (H) 01/08/2023 04:39 AM BUN/CREATININE 57.40 01/08/2023 04:39 AM CREATININE 1.69 (H) 01/08/2023 04:39 AM GLUCOSE 122 (H) 01/08/2023 04:39 AM GLUCOSE ESTIMATED AVERAGE 97 12/28/2022 02:17 PM GLUCOSE POCT 136 (H) 01/01/2023 12:18 PM GLUCOSE URINE Negative 12/28/2022 06:00 PM PT 19.2 (H) 01/08/2023 04:39 AM PTT 33.1 01/05/2023 05:49 AM INR 1.6 01/08/2023 04:39 AM TROPONIN I 12.26 (HH) 01/03/2023 12:38 AM ABG: Results for orders placed or performed during the hospital encounter of 12/28/22 BLOOD GAS, ARTERIAL Status: Abnormal Result Value Ref Range Status pH, Arterial 7.41 7.37 - 7.47 Final PCO2, Arterial 34 31 - 42 mm Hg Final PO2, Arterial 87 80 - 90 mm Hg Final Bicarbonate (HCO3), Arterial 22 20 - 25 mmol/L Final O2 Saturation, Arterial 98 (H) 94 - 97 % Final Base Excess, Arterial -3.0 -3.0 - 3.0 mmol/L Final a/A Ratio 0.13 Final O2 Therapy, Liters (FIO2 L) 5 L Final O2 Therapy, Percent (FIO2 %) 97 % Final For proceduralists, such as podiatrists and dentists, who are not MD or DO providers, this anesthesia preprocedure evaluation serves as the medical history and physical update. Proceduralists will provide a interval update on the surgical site and plan. documented in this encounter Plan of Treatment Not on file documented as of this encounter Procedures Procedure Name Priority Date/Time Associated Diagnosis Comments ANESTHESIA CENTRAL VENOUS LINE PLACEMENT Routine 01/08/2023 11:11 AM EDT ANESTHESIA ARTERIAL LINE PLACEMENT Routine 01/08/2023 8:39 AM EDT ANESTHESIA INTUBATION Routine 01/08/2023 8:35 AM EDT documented in this encounter Results * Central Venous Line (01/08/2023 11:11 AM EDT) Narrative Aaron Gaspar MD - 01/08/2023 11:11 AM EDT Aaron Gaspar MD ? 01/08/2023 11:11 AM Central Venous Line Date/Time: 01/08/2023 11:11 AM Procedure Details: Sterility preparation included the following: provider hand hygiene performed prior to central venous catheter insertion, all 5 sterile barriers used (gloves, gown, cap, mask, large sterile drape) during central venous catheter insertion and skin prep agent completely dried prior to procedure. The patient was placed in Trendelenburg position. Vein prepped: right internal jugular Vessel identified by: landmarks with finder needle Introducer needle used: thin walled During the procedure, the following specific steps were taken: needle advanced into vein and blood aspirated and guidewire advanced into vein. Catheter type and size used: MAC (introducer & 2 lumen), 12 cm in length Intravenous verification was obtained by non pulsatile venous blood return. Post insertion care included: all ports aspirated, all ports flushed easily, guidewire removed intact, Biopatch was applied to entry site, line sutured in place and sterile dressing was applied. Procedure Events: Patient tolerated procedure well with no complications. PA Catheter Placement: Pulmonary artery catheter not placed SLIC placed: no. Performed by: Aaron Gaspar MD Aaron Gaspar MD BEDSIDE PROCEDURE S * Arterial Line (01/08/2023 8:39 AM EDT) Narrative Jacek Garza CRNA - 01/08/2023 8:39 AM EDT Jacek Garza CRNA ? 01/08/2023 ??8:39 AM Arterial Line: Date/Time: 01/08/2023 8:39 AM Procedure Details: Patient prepped in sterile fashion, timeout performed, ultrasound guided, local skin infiltration and Seldinger technique used. A 20 gauge (size) catheter was placed into the ??left brachial Line secured with suture, tape and Tegaderm. Medications Administered lidocaine PF (XYLOCAINE) 10 mg/mL (1 %) injection - Subcutaneous 1 mL - 01/08/2023 8:39:00 AM Events: Patient tolerated procedure well with no complications. Performed by: Aaron Gaspar MD Aaron Gaspar MD BEDSIDE PROCEDURE S * Airway (01/08/2023 8:35 AM EDT) Narrative Jacek Garza CRNA - 01/08/2023 8:35 AM EDT Jacek Garza CRNA ? 01/08/2023 ??8:41 AM Airway General Information: Date/Time: 01/08/2023 8:35 AM Airway not difficult Indications and Patient Condition Patient position: sniffing Adequate mask vent: Yes Final Airway Details Final airway type: endotracheal airway Successful airway: Taperguard ETT size (mm): 8.5 Cuffed: yes Successful intubation technique: direct laryngoscopy Cormack-Lehane Classification: grade IIa - partial view of glottis Facilitating devices/methods: cricoid pressure and intubating stylet (maintained until EtCO2 confirmed) Endotracheal tube insertion site: oral Blade: Kevyn Blade size: #3 Placement verified by: chest auscultation and capnometry ETT secured at: right side lip cm. Inital cuff pressure (cm H2O): , MINIMALLY OCCLUSIVE PRESSURE Eyes protected: taped closed, eyes protected prior to DVL and clear tape Attempts Number of attempts at approach: 1 Lung Isolation: none Performed by: Yuliet Shea Aaron Gaspar MD BEDSIDE PROCEDURE S documented in this encounter Visit Diagnoses Not on filedocumented in this encounter Administered Medications Inactive Administered Medications - up to 3 most recent administrations Medication Order MAR Action Action Date Dose Rate Site amiodarone (CORDARONE) injection Intravenous, NEEDED, Starting on Sun01/08/23 at 1102, Intra-op $ Given 01/08/2023 11:02 AM EDT 150 mg calcium chloride 100 mg/mL (10 %) injection Intravenous, NEEDED, Starting on Sun01/08/23 at 1148, Intra-op $ Given 01/08/2023 11:50 AM EDT 400 mg $ Given 01/08/2023 11:49 AM EDT 300 mg $ Given 01/08/2023 11:48 AM EDT 300 mg cefUROXime (ZINACEF) 1.5 g in sodium chloride MBP 0.9% 100 mL IVPB 1.5 g (0.0125 g/kg), Intravenous, at 200 mL/hr, Administer over 30 Minutes, EVERY 12 HOURS FREE TIMES, First dose on Sun01/08/23 at 0730, For 3 doses, Activate Mini-Bag Plus vial prior to patient infusion., Indications: Perioperative Prophylaxis $ New Bag/Syringe 01/08/2023 8:38 AM EDT 1.5 g diphenhydrAMINE (BENADRYL) injection Intravenous, NEEDED, Starting on Sun01/08/23 at 1119, Intra-op $ Given 01/08/2023 11:19 AM EDT 50 mg EPINEPHrine (ADRENALIN) 10 mcg/mL in dextrose 5% in water (D5W) 250 mL CSICU ONLY infusion 0.02 mcg/kg/min ? 122.6 kg (14.712 mL/hr, rounded to 14.7 mL/hr), Intravenous, NEEDED, Other, As needed by ANES for CV only, Starting on Sun01/08/23 at 0701, For 30 days, Intra-op, For ANES USE ONLY - SEND to CVOR the morning of procedure. Protect from light. $ New Bag/Syringe 01/08/2023 11:25 AM EDT 0.02 mcg/kg/min 14.712 mL/hr etomidate (AMIDATE) injection Intravenous, NEEDED, Starting on Sun01/08/23 at 0832, Intra-op $ Given 01/08/2023 8:32 AM EDT 20 mg famotidine (PEPCID) injection Intravenous, Administer over 2 Minutes, NEEDED, Starting on Sun01/08/23 at 1119, Intra-op $ Given 01/08/2023 11:19 AM EDT 20 mg fentaNYL (SUBLIMAZE) injection Intravenous, NEEDED, Starting on Sun01/08/23 at 0832, Intra-op $ Given 01/08/2023 10:51 AM EDT 50 mcg $ Given 01/08/2023 8:32 AM EDT 50 mcg glycopyrrolate (PF) in water (ROBINUL) 1 mg/5 mL (0.2 mg/mL) injection Intravenous, NEEDED, Starting on Sun01/08/23 at 1218, Intra-op $ Given 01/08/2023 12:18 PM EDT 0.8 mg heparin (porcine) (hepARIN) 1,000 unit/mL injection Intravenous, NEEDED, Starting on Sun01/08/23 at 0949, Intra-op $ Given 01/08/2023 11:01 AM EDT 3,000 Units $ Given 01/08/2023 10:02 AM EDT 10,000 Units $ Given 01/08/2023 9:49 AM EDT 3,000 Units lidocaine PF (XYLOCAINE) 10 mg/mL (1 %) injection Subcutaneous, Starting on Sun01/08/23 at 0839, Intra-op $ Given 01/08/2023 8:39 AM EDT 1 mL lidocaine PF (XYLOCAINE) 20 mg/mL (2 %) injection Intravenous, NEEDED, Starting on Sun01/08/23 at 0832, Intra-op $ Given 01/08/2023 8:32 AM EDT 100 mg methylPREDNISolone sod suc(PF) (SOLU-MEDROL) 125 mg/2 mL injection Intravenous, NEEDED, Starting on Sun01/08/23 at 1119, Intra-op $ Given 01/08/2023 11:19 AM EDT 125 mg midazolam (PF) (VERSED) injection Intravenous, NEEDED, Starting on Sun01/08/23 at 0944, Intra-op $ Given 01/08/2023 11:57 AM EDT 2 mg $ Given 01/08/2023 11:21 AM EDT 2 mg $ Given 01/08/2023 10:21 AM EDT 1 mg neostigmine (BLOXIVERZ) 5 mg/5 mL (1 mg/mL) injection Intravenous, NEEDED, Starting on Sun01/08/23 at 1218, Intra-op $ Given 01/08/2023 12:18 PM EDT 5 mg norepinephrine bitartrate-NS (LEVOPHED) 4 mg/250 mL (16 mcg/mL) infusion (premix) 0.02 mcg/kg/min ? 122.6 kg (9.195 mL/hr, rounded to 9.2 mL/hr), Intravenous, NEEDED, Other, For ANES use in CV Surgery ONLY, Starting on Sun01/08/23 at 0700, For 24 hours, Intra-op, Concentration 16 mcg/mL. Protect from light. For ANES USE ONLY - SEND to CVOR the morning of procedure. Norepinephrine should be infused via a Central or PICC line, if possible, if not a large bore vein should be used with frequent monitoring. Should extravasation occur, use of Phentolamine is recommended. Rate Change 01/08/2023 12:04 PM EDT 0.04 mcg/kg/min 18.39 mL/hr Rate Change 01/08/2023 11:24 AM EDT 0.06 mcg/kg/min 27.585 mL/hr $ Given 01/08/2023 11:23 AM EDT 16 mcg potassium chloride in water 20 mEq/100 mL IVPB (premix) Intravenous, Administer over 120 Minutes, NEEDED, Starting on Sun01/08/23 at 1134, Intra-op $ Given 01/08/2023 11:34 AM EDT 20 mEq propofoL (DIPRIVAN) infusion (premix) Intravenous, CONTINUOUS PRN, Starting on Sun01/08/23 at 1052, Intra-op Rate Change 01/08/2023 12:01 PM EDT 40 mcg/kg/min 29.904 mL/hr Rate Change 01/08/2023 11:51 AM EDT 30 mcg/kg/min 22.428 m L/hr Rate Change 01/08/2023 11:32 AM EDT 40 mcg/kg/min 29.904 m L/hr protamine injection Intravenous, Administer over 10 Minutes, NEEDED, Starting on Sun01/08/23 at 1119, Intra-op $ Given 01/08/2023 11:19 AM EDT 50 mg rocuronium injection Intravenous, NEEDED, Starting on Sun01/08/23 at 0832, Intra-op $ Given 01/08/2023 10:43 AM EDT 10 mg $ Given 01/08/2023 8:32 AM EDT 100 mg sodium chloride 0.9 % infusion Intravenous, CONTINUOUS PRN, Starting on Sun01/08/23 at 0750, Intra-op $ New Bag/Syringe 01/08/2023 11:26 AM EDT $ New Bag/Syringe 01/08/2023 7:50 AM EDT sodium chloride 0.9 % infusion Intravenous, CONTINUOUS PRN, Starting on Sun01/08/23 at 0835, Intra-op Rate Change 01/08/2023 11:58 AM EDT 50 mL/hr Rate Change 01/08/2023 11:51 AM EDT 50 mL/hr $ New Bag/Syringe 01/08/2023 8:35 AM EDT 124 mL /hr documented in this encounter Care Teams Axle Inspector Relationship Specialty Start Date End Date Williams iYp MD [address] [place] [id number] PCP - General Cardiology 12/29/22 Nela Trejo [address] [place] [address] 01/02/23 documented as of this encounter Additional [...] prosecute any alcohol or drug abuse patient. Wally edulio (a.k[employer]a. [employer] edulio)
--- OUTSIDE RECORDS SUMMARY | 2024-09-23 14:18 | XMS_ITS | Encounter Summary ---
Author Organization [facility] ([facility]a. [facility]) Address [address] [id number] Care Team Providers Care Store Consultant Name Role Phone Williams Yip MD Primary Care Provider [phone] Nela Trejo Unavailable Unavailable Encounter Details Date Type Department Care Team (Late st Contact Info) Description 01/02/2023 Patient Outreach Access [facility] Care Management [address] [phone] Nela Trejo [address] [place] [address] Care Coordination Social History Tobacco Use Types [...] as of this encounter Progress Notes * Nela Trejo - 01/02/2023 8:56 AM EDT TH referral received. Nela Trejo MA Telehealth Marketing Operations Specialist [facility] documented in this encounter Plan of Treatment Not on file documented as of this encounter Visit Diagnoses Not on filedocumented in this encounter Care Teams Store Consultant Relationship Specialty [place] [address] [place] [id number] PCP - General Cardiology 12/29/22 Nela Trejo [address] [place] [address] 01/02/23 documented as of this encounter Additional [...] prosecute any alcohol or drug abuse patient. [employer] [employer] [facility]
--- OUTSIDE RECORDS SUMMARY | 2024-09-23 14:18 | XMS_ITS | Encounter Summary ---
Author Organization [facility] [employer] Address [address] [place] [address] Care Team Providers Care Ripsaw Grader Name Role Phone Williams Yip MD Primary Care Provider [phone] Nela Trejo Unavailable Unavailable Reason for Visit * Inpatient Auth/Cert (Routine) Specialty Diagnoses / Procedures Referred By Contac t Referred To Contact Diagnoses NSTEMI (non-ST elevated myocardial infarction) (CMS/HCC) (CMS-HCC) (CMS/HCC) ([facility]) NSTEMI Referral ID Status Reason Start Date Expiration Date Visits Re quested Visits Authorized [id number] 1 1 Encounter Details Date Type Department Care Team (Latest Contact Info) Description 01/08/2023 7:30 AM EDT - 01/08/2023 9:30 AM EDT Surgery [facility] - Cardiovascular Operating Room [address] [facility] [address] [place] [phone] Tania Hartley MD [address] [place] [address] REPLACEMENT, AORTIC VALVE, TRANSCATHETER, FEMORAL APPROACH (MEDTRONIC 26 ELSA); Intraoperative Echocardiogram Surgery Details Date/Time Status Location OR Service Patient Class Case Class Case Type Trauma Case? 01/08/2023 7:30 AM Posted [facility] OR [facility]I CVOR 07 Cardiovascular Inpatient Elective Panel 1 Procedure LRB Anes Op Region Wound Class Comments REPLACEMENT, AORTIC VALVE, T RANSCATHETER, FEMORAL APPROACH (MEDTRONIC 26 ELSA); Intraoperative Echocardiogram Left MAC Groin Clean Left Main Stent Placement Left General Groin Juana n Surgeon Surgeon Role Service Panel Tania Hartley MD Primary Cardiovascular 1 Timothy Monroe MD Assisting 1 Special Needs ICU/ HT 1.753m WT 120.4kg/ CONSCIOUS SEDATION4-14 1430RIGHT RADIAL PIGTAIL ,LEFT MAIN PROTECTION IVUS documented in this encounter Social History Tobacco Use Types Packs/Day Years Used Date Smoking Tobacco: Former Cigarettes Smokeless Tobacco: Never Tobacco Cessation:Counseling Given: Not Answered Sex and Gender Information Value Date Recorded Sex Assigned at Not on file Gender Identity Not on file Sexual Orientation Not on file documented as of this encounter Last Filed Vital Signs Vital Sign Reading Time Taken Comments Blood Pressure 103/69 01/08/2023 6:22 AM EDT Pulse 84 01/08/2023 6:22 AM EDT Temperature 36.4 ??C (97.5 ??F) 01/08/2023 6:22 AM ED T Respiratory Rate 20 01/08/2023 6:22 AM EDT Oxygen Saturation 95% 01/08/2023 6:22 AM EDT Inhaled Oxygen Concentration - - Weight 124.6 kg (274 lb 11.1 oz) 01/08/2023 4:00 AM EDT Height 175.3 cm (5' [...] as of this encounter Discharge Summaries * Margarito Ko Cook, DO - 01/19/2023 1:25 PM EDT Images from the original note were not included. [facility] - Cardiology Teaching Service DISCHARGE SUMMARY Patient Name: Raghu Rosenthal Admit Date: 12/28/2022 : 1945 DISCHARGE DATE: 01/19/23 Length of Stay: [address] [facility] #: [id number] Attending Physician: Abdoulaye Canales MD CODE STATUS: Full Code PCP: Williams Yip MD HOSPITAL DIAGNOSES Active Hospital Problems Diagnosis Date Noted *01/08/23 TransCatheter Aortic Valve Replacement (Pbvyt-kp-Plafa, 26 Medtronic Evolut Pro, via the Left Transfemoral Approach) EF 35% 01/08/2023 CKD (chronic kidney disease) stage 3, GFR 30-59 ml/min ([facility]) 01/09/2023 Hypertension 12/28/2022 Hyperlipidemia 12/28/2022 Coronary artery disease 12/28/2022 Resolved Hospital Problems Diagnosis Date Noted Date Resolved FILIBERTO (acute kidney injury) ([facility]) 01/09/2023 01/19/2023 Pulmonary edema 01/09/2023 01/19/2023 Cardiogenic shock ([facility]) 01/08/2023 01/19/2023 Acute on chronic HFrEF (heart failure with reduced ejection fraction) ([facility]) 01/08/2023 01/19/2023 NSTEMI (non-ST elevated myocardial infarction) ([facility]) 12/28/2022 01/19/2023 Acute coronary syndrome ([facility]) 12/28/2022 01/08/2023 Shock ([facility]) 12/28/2022 01/08/2023 Discharge Diagnosis Active Hospital Problems Diagnosis Date Noted *01/08/23 TransCatheter Aortic Valve Replacement (Sbfom-hb-Sryqb, 26 Medtronic Evolut Pro, via the Left Transfemoral Approach) EF 35% 01/08/2023 CKD (chronic kidney disease) stage 3, GFR 30-59 ml/min (CMS/HCC) 01/09/2023 Hypertension 12/28/2022 Hyperlipidemia 12/28/2022 Coronary artery disease 12/28/2022 Resolved Hospital Problems Diagnosis Date Resolved [place]IBERTO (acute kidney injury) ([facility] 01/19/2023 Pulmonary edema 01/19/2023 Cardiogenic shock ([facility] 01/19/2023 Acute on chronic HFrEF (heart failure with reduced ejection fraction) ([facility] 01/19/2023 NSTEMI (non-ST elevated myocardial infarction) ([facility] 01/19/2023 Acute coronary syndrome [place] 01/08/2023 Shock ([facility] 01/08/2023 DISCHARGE FOLLOW-UP APPOINTMENTS: Future Appointments Date Time Provider Department Center 01/20/2023 6:30 AM Anais Mcgovern OTR/L [facility] 01/20/2023 10:00 AM Leigha Warren, PT [facility] 01/20/2023 11:00 AM Anais Mcgovern OTR/L [facility] 01/20/2023 2:00 PM Leigha Warren, PT [facility] 01/22/2023 7:30 AM Anais Mcgovern OTR/L [facility] 01/22/2023 9:00 AM Caryl Barrera, GRAPHIC USER INTERFACE DESIGNER [facility] 01/22/2023 10:00 AM Anais Mcgovern [...] PMH of CAD s/p CABG x2 in [place] 10 years ago, HTN, HLD, porcine AVR who initially presented to [facility] ED with complaints of SOB and midchest pressure. Patient lives in [place] with his , and is visiting [facility] for the next 3 months. He recently had a ziopatch placed by the [facility] on 12/27. Following this procedure he had worsening SOB associated with fatigue, malaise and generalized weakness. EMS was called and he was brought to [facility] ED. On arrival he was noted to be in mild respiratory distress and required bipap. WBC of 19. EKG without NUNO, troponin 1.197. CXR consistent with mild interstitial edema, and a small left pleural effusion. He was given nitro sublingual and morphine, and started on BID lovenox. He was admitted to the ICU at [facility]. He was started on empiric vanc, cefepime for possible infection. He was hypotensive requiring levophed with a differential of cardiogenic vs septic shock. He had a repeat EKG done on 12/28 with a new LBBB. His troponin trended as high as 39. Given concerns for acute coronary syndrome, he was transferred [facility] further management. On arrival to CICU, patient is awake and alert. He is on low dose levophed. He is warm to the touchand appears well perfused. POCUS with EF visually estimated at 45%. Breathing comfortably on room air. HOSPITAL COURSE Medical Management: Raghu Rosenthal is a 77yrs Male with PMH of CAD s/p CABG x2 in [place] 10 years ago, HTN, HLD, porcine AVR who initially presented to [facility] ED with complaints of SOB and midchest pressure. Patient lives in [place] with his , and is visiting [facility] for the next 3 months. He recently had a ziopatchplaced by the [facility] on 12/27. Following this procedure he had worsening SOB associated with fatigue, malaise and generalized weakness. EMS was called and he was brought to [facility] ED. On arrival he was noted to be in mild respiratory distress and required bipap. WBC of 19. EKG without NUNO, troponin 1.197. CXR consistent with mild interstitial edema, and a small left pleural effusion. He was given nitro sublingual and morphine, and started on BID lovenox. He was admitted to the ICU at [facility]. He was started on empiric vanc, cefepime for possible infection. He was hypotensive requiring levophed with a differential of cardiogenic vs septic shock. He had a repeat EKG done on 12/28 with a new LBBB. His troponin trended as high as 39. Given concerns for acute coronary syndrome, he was transferred to [facility] for further management. On arrival to [...] distal left main stenosis, culprit for his ME appears to be an occluded SVG to [...] bumex drip. 01/11 Transfer to CIU. 01/12 VP DELIVERY-P defibrillator placed. Started on rocephin for UTI. [...] Negative for agitation and behavioral problems. Pertinent Refinery Operator Helper Final Impression/Plan: CONSULT - UROLOGY - [facility] CONSULT CONSULT - PHYSICAL MEDICINE/REHAB - BSOM [...] Post dilatation with 23 mm True balloon. GRAPHIC USER INTERFACE DESIGNER right femoral artery with 8.0 x 80 [...] VTI ratio 0.39. No paravalvular leak. S/p mstov-uo-zbinq TAVR with 26 mm Evolut FX (within [...] The left atrium is mildly dilated. S/p utfce-at-sxqqt TAVR with 26 mm Evolut FX (within [...] distal left main stenosis. Culprit for his ME appears to be an occluded SVG to ramus graft. There is flowin the ramus with proximal 70% stenosis. 2. He is also noted to have severely degenerated bioprosthetic aortic valve, invasive gradients reviewed severely stenotic with mean gradient over 40 mmHg. 3. Decompensated heart failure with preserved cardiac output. We had discontinued his Levophed on arrival to the [facility]. LVEDP 30mmHg. DISCHARGE MEDICATIONS: Medication List START [...] program. Please follow up with your referring carnallite plant operator or your primary care team if you have any questions. Order Specific Question Answer Comments Instructions This service may be available if you qualify and is meant to assist you in managing your heart disease. If you have question or would like to find a cardiac rehab in your area please call [phone]. Discharge Instructions for Cardiac Rehab Order Comments: You have been provided with a cardiac rehabilitation referral and may qualify for these services. If you qualify, you will be contacted by the program closest to your home once they have availability within their program. Please follow up with your referring carnallite plant operator or your primary care team if you have any questions. Order Specific Question Answer Comments Instructions This service may be available if you qualify and is meant to assist you in managing your heart disease. If you have question or would like to find a cardiac rehab in your area please call [phone]. In The Case Of An Emergency, Call [phone] Order Comments: If you are unable to reach your Doctor or Go to the nearest Hospital. Call Doctor's Office If Unable To Eat Or Drink Call Doctor's Office If Uncontrolled Diarrhea Call Doctor's Office If Bleeding From Incision Call Doctor's Office If Your Incision Pulls Apart Amb Referral to Cardiac Rehab Referral Priority: Routine Referral Type: Evaluation & Treat Number of Visits Requested: Expiration Date: 12/29/23 Discharge Diet: Will continue [...] Stable. Family Contact Number: Primary Emergency Contact: Cathygem Pimentel DO [facility] PM&R Resident CC: PCP (Williams Yip MD Address: [address] [place] [address], ) Associated attestation - Abdoulaye Canales MD - 02/04/2023 8:17 PM EDT Cardiology Attending Note Patient Name: Raghu Rosenthal Gender: Male Age: 77yrs :1945 MR #: [id number] [facility] #:[id number] Attending Provider: No att. providers found I [...] today. Electronically signed by: Abdoulaye Canales MD, [facility] Bra[facility] Coupler Dinkey of Cardiology [facility] documented in this encounter Discharge Instructions * Discharge Instructions* Shira Gonzalez AGN - 12/28/2022 5:14 PM EDT [facility] DISCHARGE INSTRUCTIONS During [...] We will connect you to our senior sas programmer and assess your device to ensure it is working appropriately and safely. Feel free to contact us at the [facility] with any questions or concerns. [facility] [place] at [facility]: [address] [place] [address] Trevor Johnson RN After Fluoroscopy Your health care [...] or concerns. You can also contact the [facility] Radiation Safety Office at or at [email or web address]. ?? 2021 [facility] [employer]. All rights reserved. This information is not [...] 01/30/2023 fluticasone propionate (FLONASE) 50 mcg/actuation Nasal Ulysses, Suspension by Nasal route. 02/08/2022 01/21/2023 folic [...] *Please utilize Cortext to contact* * Nidhi Humphrey, PT - 01/19/2023 4:50 PM EDT Raghu Rosenthal was discharged from the acute hospital prior to meeting acute Physical Therapy goals;therefore discharge summary not completed. If needed, please refer to the therapist's initial recommendations made on initial evaluation, or see the last PT treatment note for most recent functional status. Nidhi Humphrey, PT * Mary Chavez RN - 01/19/2023 4:10 PM EDT Patient transport picked up patient for transfer to [facility]. * Ruma Andrade CCM - 01/19/2023 1:09 PM EDT Pt d/c to [facility] today * Gaurav Lin MD - [...] 1400 End: Until Specified Question: Snacks: Answer: Birch Tree, Chicken Salad 01/11/23 1449 01/12/23 1000 Nourishments [...] Provider Department Center 01/20/2023 6:30 AM Anais Mcgovern, OTR/L [facility] 01/20/2023 10:00 AM Leigha Warren, PT [facility] 01/20/2023 11:00 AM Anais Mcgovern, OTR/L [facility] 01/20/2023 2:00 PM Leigha Warren, PT [facility] 01/22/2023 7:30 AM Anais Mcgovern, OTR/L [facility] 01/22/2023 10:00 AM Anais Mcgovern, OTR/L [facility] 01/22/2023 2:30 PM RSCI OTH([facility] 01/31/2023 2:20 PM [facility] SITE CHECK [facility] 02/13/2023 12:15 PM [facility] CVS LAB [facility] 02/13/2023 12:30 PM [facility] C[facility]IO GRAPHICS 2 [facility] 02/13/2023 1:15 PM [facility] XRAY01 [facility] 02/13/2023 1:30 PM Timothy Monroe MD [facility] 04/18/2023 1:00 PM Mathew Johnson RN [facility] Other Follow-up appointments or when appointments should be made with services after discharge fromrehab: Pt to set up w/ PCP Feel free to contact us at the [facility] with any questions or concerns. [facility] [place] [facility]: [address] [place] [address] Trevor Johnson RN Future planned procedures and date(s): Device check in 2 weeks, [facility] cards will follow Other recommendations: Severe Degenerated Bioprosthetic Valve S/p VP DELIVERY-P placement HFrEF NSTEMI AKBAR and Vitamin defficiency - Valve in valve TAVR done 01/08/23. Given risk for CHB EP placed pacemaker, [facility] will continue to follow while patient is in IPR. - Pt developed hematome over the pcaemaker site, [...] 140 mg/mL Pnij Commonly known as: REPATHA SURESURJITICK Give 140 mg subcutaneous every 2 weeks [...] Gender: Male Age: 77yrs :1945 MR #: [id number] [facility] #:[id number] Attending Provider: No att. providers found I saw and evaluated Raghu Rosenthal, a 77yrs-year old Male with cardiology inpatient resident/consult/CICU team on 01/19/2023 and agree with the facts as documented in the note. Please refer to my addendum to discharge summary. Electronically signed by: Abdoulaye Canales MD, [facility] Brake Coupler Dinkey of Cardiology [facility] * Maru Leblanc RN - 01/19/2023 5:33 AM EDT Shift Summary: [...] 01/18/2023 4:14 PM EDT PHYSICAL THERAPY RE- EVALUATION-[facility] Patient Name: Raghu Rosenthal Date of Treatment: 01/18/2023 Date of : 1945 Age: 77yrs Date of admission: 12/28/2022 Attending Provider: Abdoulaye Canales MD Start Time: Time In: 1542 End Time: Time Out: 1614 Active Hospital Problems Diagnosis *01/08/23 TransCatheter Aortic Valve Replacement (Vbfbj-jf-Ihrgp, 26 Medtronic Evolut Pro, via the Left Transfemoral Approach) EF 35% CKD (chronic kidney disease) stage 3, GFR 30-59 ml/min ([facility]) FILIBERTO (acute kidney injury) ([facility]) Pulmonary edema Cardiogenic shock ([facility]) Acute on chronic HFrEF (heart failure with reduced ejection fraction) ([facility]) NSTEMI (non-ST elevated myocardial infarction) ([facility]) Hypertension Hyperlipidemia Coronary artery disease [...] DC from Hospital: Spouse Caregiver Availability : time clock mechanic Caregiver/Physical Assistance available: Significant assistance available Mental [...] and levels stayed above 90%. Outcome Tools: [facility] SHORT FORMS TOOL BASIC MOBILITY Raghu Rosenthal [...] a railin- A Lot Basic Mobility Scores [facility] Mobility Raw Score: 17 AM-PAC Mobility t-Score: 39.67 [facility] Mobility G-Code Modifier: CK Legend for Raw [...] DC from Hospital: Spouse Caregiver Availability : time clock mechanic Caregiver/Physical Assistance available: Significant assistance available Equipment Needed at MD: Will be assessed at next level of [...] strength/endurance DIVYA Oconnell Associated attestation - Nidhi Humphrey, PT - 01/19/2023 5:27 PM EDT This story writer was present for direct supervision and [...] and bedside recliner during this shift. 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 Pt reported some generalized discomfort and body [...] per nov. Mobility: As above. * Williams Murray, DO - 01/18/2023 5:53 AM EDT Images from the original note were not included. [facility] - Cardiology Teaching Service Progress Note Service Pager (call #1, administrative intern) #[phone] Service Pager (call #2, senior) #[phone] PATIENT IDENTIFICATION: Patient Name: Raghu Rosenthal Age: 77yrs Sex: Male : 1945 MEG: [id number] Admit Date: 12/28/2022 1:45 PM Today's Date: 01/18/2023 Length of Stay: 20 days Admit Diagnosis: NSTEMI (non-ST elevated myocardial infarction) ([facility]) [I21.4] Primary Diagnosis: S/P TAVR (transcatheter aortic valve replacement) Room: [facility] PCP: Williams Yip MD Primary Insurance: @Deliv@ Secondary Insurance: @[employer]@ HOSPITAL COURSE Raghu Rosenthal is a 77yrs Male with PMH of CAD s/p CABG x2 in [place] 10 years ago, HTN, HLD, porcine AVR who initially presented to [facility] ED with complaints of SOB and midchest pressure. Patient lives in [place] with his , and is visiting [facility] for the next 3 months. He recently [facility] on 12[facility]. Following this procedure he had worsening SOB associated with fatigue, malaise and generalized weakness. EMS was called and he was brought to [facility] ED. On arrival he was noted to be in mild respiratory distress and required bipap. WBC of 19. EKG without NUNO, troponin 1.197. CXR consistent with mild interstitial edema, and a small left pleural effusion. He was given nitro sublingual and morphine, and started on BID lovenox. He was admitted to the ICU at [facility]. He was started on empiric vanc, cefepime for possible infection. He was hypotensive requiring levophed with a differential of cardiogenic vs septic shock. He had a repeat EKG done on 12/28 with a new LBBB. His troponin trended as high as 39. Given concerns for acute coronary syndrome, he was transferred to [facility] health for further management. On arrival to [...] distal left main stenosis, culprit for his ME appears to be an occluded SVG to [...] bumex drip. 01/11 Transfer to CIU. 01/12 VP DELIVERY-P defibrillator placed. Started on rocephin for UTI. [...] PMH of CAD s/p CABG x2 in [place] 10 years ago, HTN, HLD, porcine AVR who initially presented to [facility] ED with complaints of SOB and midchest pressure. Transferred to [facility] in cardiogenic shock and admitted to CICU. After a brief floor stay pt was transferredback to the CICU. Valve in valve TAVR done 01/08/23. Now downgraded to CIU. 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 Given risk for CHB EP to consider pacemaker. - VP DELIVERY-P device placed 01/12 HFrEF Hematoma TTE 01/09 40-45%. Patient initially presenting with cardiogenic shock and reduced EF on [facility] with history of CABG x 2 over 10 years ago VP DELIVERY-P device placed 01/12 - Aldactone 25mg qd - Toprol-XL 25 mg daily - Advance GDMT as tolerated - continue Torsemide 60 mg PO BID. - PT/OT - will touch base with IPR tomorrow for transfer given patient medically stable - Hematoma over VP DELIVERY-P, EP consulted, will place weighted bag over, no discharge or overt signs of infection. Hematoma improving greatly. - AdvHF following Cardiogenic Shock - resolved NSTEMI Nonsustained VT New LBBB, chest pain. [facility] with Severe three-vessel disease with patent AVERY to LAD, intermediate stenosis in mid RCA, 60% distal left main stenosis. Culprit for his ME appears to be an occluded SVG to [...] 60 mg, BID albuterol HFA, 2 Puff, D7JT-GAH dextrose, 15 g, PRN dextrose 50% in water, 25 mL, PRN dextrose 50% in water, 50 mL, PRN ondansetron, 4 mg, Q2TB-FNV oxyCODONE, 5 mg, F8MU-HUQ phenoL, 1 Ulysses, PRN Lab Results: Recent Labs 01/15/23 0417 01/16/23 0355 01/17/23 0352 WBC 8.22 8.86 9.26 HEMOGLOBIN 8.6* 8.8* 9.1* HEMATOCRIT 28.1* 28.0* 30.0* NEUTROPHIL # 5.39 5.29 5.07 NEUTROPHIL % 66 59 54 MCV 96.6 97.2 96.8 PLATELET 127* 123* 116* Recent Labs 01/17/23 0352 01/17/23 0734 01/17/23173601/17/233 01/18/23 0457 01/18/23 0737 SODIUM 131* 131* 133* POTASSIUM 3.2* 3.7 3.5 CHLORIDE 92* 92* 94* GLUCOSE POCT < > 115* 121* GLUCOSE 107* 108* 110* BUN 90* 86* 82* CREATININE 1.51* 1.61* 1.54* < > = values in this interval not displayed. Recent Labs 01/17/23 0352 01/17/23 1737 01/18/23 0000 MAGNESIUM 1.7 1.7 2.2 Recent Labs 01/16/23 0355 01/17/23 0352 01/18/23 0457 PHOSPHORUS 2.6 2.7 2.6 Diagnostics (Reviewed): [...] VTI ratio 0.39. No paravalvular leak. S/p cjllv-iz-bzksb TAVR with 26 mm Evolut FX (within [...] The left atrium is mildly dilated. S/p trfqv-ar-gndxk TAVR with 26 mm Evolut FX (within [...] 72 hour(s)). Electronically signed by: Williams Murray [facility] Lunchroom Worker Associated attestation - Abdoulaye Canales MD - 02/04/2023 8:15 PM EDT Cardiology Attending Note Patient Name: Raghu Rosenthal Gender: Male Age: 77yrs :1945 MR #: [id number] [facility] #:[id number] Attending Provider: No att. providers found I [...] bed to chair well. Potential discharge to [facility] tomorrow. Electronically signed by: Abdoulaye Canales MD, [facility] Brake Coupler Dinkey of Cardiology [facility] * Nela Olmos RN - 01/18/2023 1:33 [...] Will report to oncoming RN. * Williams Murray DO - 01/17/2023 2:50 PM EDT Images from the original note were not included. [facility] - Cardiology Teaching Service Progress Note Service Pager (call #1, administrative intern) #[phone] Service Pager (call #2, senior) #[phone] PATIENT IDENTIFICATION: Patient Name: Raghu Rosenthal Age: 77yrs Sex: Male : 1945 MEG: [id number] Admit Date: 12/28/2022 1:45 PM Today's Date: 01/17/2023 Length of Stay: 20 days Admit Diagnosis: NSTEMI (non-ST elevated myocardial infarction) ([facility]) [I21.4] Primary Diagnosis: S/P TAVR (transcatheter aortic valve replacement) Room: [facility] PCP: Williams Yip MD Primary Insurance: @Deliv@ Secondary Insurance: @[email or web address]@ HOSPITAL COURSE Raghu Rosenthal is a 77yrs Male with PMH of CAD s/p CABG x2 in [place] 10 years ago, HTN, HLD, porcine AVR who initially presented to [facility] ED with complaints of SOB and midchest pressure. Patient lives in [place] with his , and is visiting [facility] for the next 3 months. He recently had a ziopatchplaced by [facility] on 12/27. Following this procedure he had worsening SOB associated with fatigue, malaise and generalized weakness. EMS was called and he was brought to [facility] ED. On arrival he was noted to be in mild respiratory distress and required bipap. WBC of 19. EKG without NUNO, troponin 1.197. CXR consistent with mild interstitial edema, and a small left pleural effusion. He was given nitro sublingual and morphine, and started on BID lovenox. He was admitted to the ICU at [facility]. He was started on empiric vanc, cefepime for possible infection. He was hypotensive requiring levophed with a differential of cardiogenic vs septic shock. He had a repeat EKG done on 12/28 with a new LBBB. His troponin trended as high as 39. Given concerns for acute coronary syndrome, he was transferred to [facility] for further management. On arrival to CICU, [...] distal left main stenosis, culprit for his ME appears to be an occluded SVG to [...] bumex drip. 01/11 Transfer to CIU. 01/12 VP DELIVERY-P defibrillator placed. Started on rocephin for UTI. [...] PMH of CAD s/p CABG x2 in [place] 10 years ago, HTN, HLD, porcine AVR who initially presented to [facility] ED with complaints of SOB and midchest pressure. Transferred to ECU in cardiogenic shock and admitted to CICU. After a brief floor stay pt was transferredback to the CICU. Valve in valve TAVR done 01/08/23. Now downgraded to CIU. 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 Given risk for CHB EP to consider pacemaker. - VP DELIVERY-P device placed 01/12 HFrEF Hematoma TTE 01/09 40-45%. Patient initially presenting with cardiogenic shock and reduced EF on [facility] with history of CABG x 2 over 10 years ago VP DELIVERY-P device placed 01/12 - Aldactone 25mg qd - Toprol-XL 25 mg daily - Advance GDMT as tolerated - Switched from bumex gtt 1mg/hr to Torsemide 60 mg PO BID. - PT/OT - will touch base with I[facility] tomorrow for transfer given patient medically stable - Hematoma over VP DELIVERY-P, EP consulted, will place weighted bag over, no discharge or overt signs of infection - AdvHF following Cardiogenic Shock - resolved NSTEMI Nonsustained VT New LBBB, chest pain. [facility] with Severe three-vessel disease with patent AVERY to LAD, intermediate stenosis in mid RCA, 60% distal left main stenosis. Culprit for his ME appears to be an occluded SVG to [...] 100 mg, QPM albuterol HFA, 2 Puff, Z5GK-HKE dextrose, 15 g, PRN dextrose 50% in water, 25 mL, PRN dextrose 50% in water, 50 mL, PRN ondansetron, 4 mg, V3TJ-AZG oxyCODONE, 5 mg, M4IJ-BAC phenoL, 1 Ulysses, PRN Lab Results: Recent Labs 01/15/23 0417 [...] VTI ratio 0.39. No paravalvular leak. S/p qxram-nf-higqz TAVR with 26 mm Evolut FX (within [...] The left atrium is mildly dilated. S/p eswne-mu-gchbi TAVR with 26 mm Evolut FX (within [...] None new. Electronically signed by: Williams Murray DO [facility] Lunchroom Worker Associated attestation - Abdoulaye Canales MD - 02/04/2023 8:13 PM EDT Cardiology Attending Note Patient Name: Raghu Rosenthal Gender: Male Age: 77yrs :1945 MR #: [id number] MEG #:[id number] Attending Provider: No att. providers found I saw and evaluated Raghu Rosenthal, a 77yrs-year old Male with cardiology inpatient resident/consult/CICU team on 01/17/2023 and agree with the facts as documented in the note. No acute events overnight. Diuresing well with p.o. torsemide. Appreciate ID recommendations about discontinuation of cefepime. Anticipating discharging to [facility] tomorrow or Sunday. Electronically signed by: Abdoulaye Canales MD, FACDARWIN Zhao Brake Coupler Dinkey of Cardiology [facility] * Ruma Andrade CCM - 01/17/2023 2:15 PM EDT FL2 sent to [facility] for PASRR * Nidhi Humphrey, PT - 01/17/2023 1:00 PM EDT PT continuing to follow. Per chart review, had PPM placed 01/12, will require PT reevaluation. Will follow up later date/time, as time allows and patient appropriate. Nidhi Humphrey, PT, DPT Cortext preferred method of communication. * Natalie Zac, OTR/L - 01/17/2023 11:02 AM EDT Images from the original note were not included. ACUTE OCCUPATIONAL THERAPY RE-EVALUATION Patient Name: Raghu Rosenthal Date of Treatment: 01/17/2023 Date of : 1945 Age: 77yrs Date of admission: 12/28/2022 Attending Provider: Abdoulaye Canales MD Start Time: 0 End Time: 110 Occupational Therapy re-evaluation warranted today due to: medical status change: PPM 01/12 Subjective: Pt states, I got my pacemaker a few days ago. Received semi-fowlers, resident care aid at bedside. Pt agreeable to participate in [...] distracted/inattentive Splinting/Positioning Needs: No splinting/positioning needs identified AM-PAC Daily Activities Raw Score: 16 AM-PAC Daily Activities t-Score: 35.96 Assessment: OT services are indicated. Raghu Neri with decreased satisfaction/ability to participate in the following occupations: Grooming, Dressing, Toileting, Toilet Transfer, Tub/Shower Transfer, Safety Awareness, EmergencyResponses, health Management, Home Management, Functional Mobility Raghu Pakuspresents with deficits in the following performance skills [...] Discharge Caregiver : Spouse Caregiver Availability : time clock mechanic Physical assist caregiver able to provide: Significant JACK Peters/L * Ruma Andrade CCM - 01/17/2023 9:19 AM EDT Lloyd Hawthorne: Sneha Stovall sent to Ruma Andrade CCM This service request was accepted on 01/16/2023 at 16:15 EDT. * Indigo Shi RN - 01/17/2023 5:09 AM EDT Shift Summary No acute events during the shift.Paced rhythm on monitor.Patient is still confused but alert and oriented . All due medications given per MAR. AM labs collected.Patient's needs assessed every hour [...] Service Progress Note Service Pager (call #1, administrative intern) #[phone] Service Pager (call #2, senior) #[phone] PATIENT IDENTIFICATION: Patient Name: Raghu Rosenthal Age: 77yrs Sex: Male : 1945 MEG: [id number] Admit Date: 12/28/2022 1:45 PM Today's Date: 01/16/2023 Length of Stay: 19 days Admit Diagnosis: NSTEMI (non-ST elevated myocardial infarction) ([facility]) [I21.4] Primary Diagnosis: S/P TAVR (transcatheter aortic valve replacement) Room: CV514/CV514 PCP: Williams Yip MD Primary Insurance: @Deliv@ Secondary Insurance: @[email or web address]@ HOSPITAL COURSE Raghu Rosenthal is a 77yrs Male with PMH of CAD s/p CABG x2 in [place] 10 years ago, HTN, HLD, porcine AVR who initially presented to [facility] ED with complaints of SOB and midchest pressure. Patient lives in [place] with his , and is visiting [facility] for the next 3 months. He recently had a ziopatchplaced by the [facility] on 12/27. Following this procedure he had worsening SOB associated with fatigue, malaise and generalized weakness. EMS was called and he was brought to [facility] ED. On arrival he was noted to be in mild respiratory distress and required bipap. WBC of 19. EKG without NUNO, troponin 1.197. CXR consistent with mild interstitial edema, and a small left pleural effusion. He was given nitro sublingual and morphine, and started on BID lovenox. He was admitted to the ICU at [facility]. He was started on empiric vanc, cefepime for possible infection. He was hypotensive requiring levophed with a differential of cardiogenic vs septic shock. He had a repeat EKG done on 12/28 with a new LBBB. His troponin trended as high as 39. Given concerns for acute coronary syndrome, he was transferred to [facility] for further management. On arrival to CICU, [...] distal left main stenosis, culprit for his ME appears to be an occluded SVG to [...] bumex drip. 01/11 Transfer to CIU. 01/12 VP DELIVERY-P defibrillator placed. Started on rocephin for UTI. [...] PMH of CAD s/p CABG x2 in [place] 10 years ago, HTN, HLD, porcine AVR who initially presented to [facility] ED with complaints of SOB and midchest pressure. Transferred to ECU in cardiogenic shock and admitted to CICU. After a brief floor stay pt was transferredback to the CICU. Valve in valve TAVR done 01/08/23. Now downgraded to CIU. 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 Given risk for CHB EP to consider pacemaker. - VP DELIVERY-P device placed 01/12 HFrEF Hematoma TTE 01/09 40-45%. Patient initially presenting with cardiogenic shock and reduced EF on [facility] with history of CABG x 2 over 10 years ago VP DELIVERY-P device placed 01/12 - Aldactone 25mg qd - Lopressor 12.5mg bid - Advance GDMT as tolerated - Switched from bumex gtt 1mg/hr to Torsemide 60 mg PO BID. - PT/OT - will touch base with [facility] tomorrow for transfer given patient medically stable - Hematoma over VP DELIVERY-P, EP consulted, will place weighted bag over, no discharge or overt signs of infection - AdvHF following Cardiogenic Shock - resolved NSTEMI Nonsustained VT New LBBB, chest pain. [facility] with Severe three-vessel disease with patent AVERY to LAD, intermediate stenosis in mid RCA, 60% distal left main stenosis. Culprit for his ME appears to be an occluded SVG to [...] 100 mg, QPM albuterol HFA, 2 Puff, O9VA-ZDJ dextrose, 15 g, PRN dextrose 50% in water, 25 mL, PRN dextrose 50% in water, 50 mL, PRN ondansetron, 4 mg, B9TE-WOE oxyCODONE, 5 mg, V1SM-KJP phenoL, 1 Ulysses, PRN Lab Results: Recent Labs 01/14/23 0518 [...] VTI ratio 0.39. No paravalvular leak. S/p nmygc-lc-wgbsq TAVR with 26 mm Evolut FX (within [...] - 1.8 cm^2 CHELITA(I,D) - 1.8 cm^2 CHEILTA(V,A) - 1.8 cm^2 CHELITA(V,D) - 1.8 cm^2 [...] The left atrium is mildly dilated. S/p igbhs-ky-akxpx TAVR with 26 mm Evolut FX (within [...] None new. Electronically signed by: Williams Murray [facility] Lunchroom Worker Associated attestation - Abdoulaye Canales MD - 02/04/2023 8:12 PM EDT Cardiology Attending Note Patient Name: Raghu Rosenthal Gender: Male Age: 77yrs :1945 MR #: [id number] [facility] #:[id number] Attending Provider: No att. providers found I [...] daily. Electronically signed by: Abdoulaye Canales MD, [facility] Brake Coupler Dinkey of Cardiology [facility] * Kendra Whitehead, RDN - 01/16/2023 3:25 PM EDT Patient: Raghu Rosenthal Today's Date / Time: 01/16/2023 / 3:25 PM Room/Bed: [facility] LOS: 19 days Nutrition Monitoring Contact: Clinical RDN Available via [facility] Nutrition Interventions & Recommendations for Provider Recommend [...] Weight: 121.7 kg Current Weight: 114.8 kg [place] Body Weight (kg) (Nutrition): 73 Nutrition Focused [...] 146 g/day (2 g/kg IBW) Calorie Needs: 0030-5142 kcal/day (22-25 kcal/kg IBW) Fluid Needs: per [...] Sent History and Physical CM aware Dakota Tompkins Mgt & Management Planner Phone #: [phone] IP Phone #[phone] For Case Mangement assistance Sunday through Sunday, Weekends or Holidays 8:30 am 5:00 pm, please page [phone] pager [phone]. For Case Management assistance after 5:00 pm , please call [phone]. * Ruma Andrade CCM - 01/16/2023 2:35 PM EDT CM met with pt and talked with via phone, she is packing up to leave [place] ( they were vacationing there) and getting a hotel in [place] to stay and be closer to her , [facility] is there first choice and wants SNF as 2nd choice, would like for SNF referrals to be in [facility] (Does not know much about this area or SNF's) Referrals sent to SNF in [facility] will continue to follow * Shanell Lara, [facility] - 01/16/2023 10:15 AM EDT Antibiotic Stewardship [...] Note: Antibiotic Stewardship pharmacists office hours are [phone] M-F. If there are any questionsafter hours, weekends or holidays, please contact [facility] ID fellow at pager [phone]. Thank you. 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 Hospitalization significant for TAVR on 01/08 and VP DELIVERY-D placement on 01/12. On 01/12, patient also [...] admitted for NSTEMI/shock, now s/p TAVR and VP DELIVERY-D currently being treated for possible UTI.More likely suspect asymptomatic bacteruria. Confusion alone is not indicative of a UTI and patient's UA did not have pyuria with only 4 WBC. Urine culture, which was collected prior to Bruno exchange, grew [id number] CFU Pseudomonas aeruginosa, likely colonization as patient's [...] bleeding . Bumex drip is infusing per MAR. Patient is confused and around 0200 patient said Iwant to get out of here Reoriented to the surroundings and [facility]U manager environmental paged and at his bedside .DR talked to patient AM labs collected.Patient's needs [...] were not included. OCCUPATIONAL THERAPY DAILY NOTE-INPATIENT [facility] Patient Name: Raghu Rosenthal Date [...] RW safety. Pt completed x3 STS's from [facility] due to pt being unaware of BM upon arrival, therapist providedMax A to complete perineal care. Pt left in semi-fowlers position, all needs in reach, RN aware. OTacute will continue to follow. Safety Promotion/Fall Prevention: [...] Discharge Caregiver : Spouse Caregiver Availability : time clock mechanic Physical assist caregiver able to provide: Significant MOISE Elaine/Jessica * Karen Ventura PTA - 01/15/2023 2:23 PM EDT PHYSICAL THERAPY DAILY NOTE-[facility] Patient Name: Raghu Rosenthal Date [...] Supine Weight/Resistance: AROM Repetitions/Time: 10 Sets: 1 AM-[facility] SHORT FORMS TOOL BASIC MOBILITY Raghu Rosenthal [...] a railin- A Lot Basic Mobility Scores AM-[facility] Mobility Raw Score: 17 AM-PAC Mobility t-Score: 39.67 AM-[facility] Mobility G-Code Modifier: CK Legend for Raw [...] DC from Hospital: Spouse Caregiver Availability : time clock mechanic Caregiver/Physical Assistance available: Significant assistance available Equipment [...] PM Length of Stay: 18 days -s/p VP DELIVERY-P on 01/12/23. -EP was asked to evaluate [...] patient at 2 week site check. Shira Gonzalez [facility] [place] at [facility] Physicians Cortex / After hours #[phone] * Mathew Dang RN - 01/15/2023 9:01 AM EDT Received pt into my care. Bedside rounding completed with night nurse Pt denies any discomfort at this time. Will continue to monitor Hematoma remains present PPM site * Miller Cooper MD - 01/15/2023 6:05 AM EDT [facility] PH[facility] - Cardiology Teaching Service Progress Note Service Pager (call #1, administrative intern) #[phone] Service Pager (call #2, senior) #[phone] PATIENT IDENTIFICATION: Patient Name: Raghu Rosenthal Age: 77yrs Sex: Male : 1945 MEG: [id number] Admit Date: 12/28/2022 1:45 PM Today's Date: 01/15/2023 Length of Stay: 17 days Admit Diagnosis: NSTEMI (non-ST elevated myocardial infarction) (CMS/HCC) [I21.4] Primary Diagnosis: S/P TAVR (transcatheter aortic valve replacement) Room: CV4/CV514 PCP: Williams Yip MD Primary Insurance: @[email or web address]@ Secondary Insurance: @Captive MediaPLAN@ HOSPITAL COURSE Raghu Rosenthal is a 77yrs Male with PMH of CAD s/p CABG x2 in [place] 10 years ago, HTN, HLD, porcine AVR who initially presented to [facility] ED with complaints of SOB and midchest pressure. Patient lives in [place] with his , and is visiting [facility] for the next 3 months. He recently had a [facility]atchplaced by [facility] on 12/27. Following this procedure he had worsening SOB associated with fatigue, malaise and generalized weakness. EMS was called and he was brought to [facility] ED. On arrival he was noted to be in mild respiratory distress and required bipap. WBC of 19. EKG without NUNO, troponin 1.197. CXR consistent with mild interstitial edema, and a small left pleural effusion. He was given nitro sublingual and morphine, and started on BID lovenox. He was admitted to the ICU at [facility]. He was started on empiric vanc, cefepime for possible infection. He was hypotensive requiring levophed with a differential of cardiogenic vs septic shock. He had a repeat EKG done on 12/28 with a new LBBB. His troponin trended as high as 39. Given concerns for acute coronary syndrome, he was transferred to [facility] for further management. [facility], patient is awake and alert. He is on low dose levophed. He is warm to the touchand appears well perfused. POCUS with EF visually estimated at 45%. Breathing comfortably on room air. He underwent a R/LHC 12/28/2022 showing severe three-vessel disease with patent AVERY to LAD, intermediate stenosis in mid RCA, 60% distal left main stenosis, culprit for his ME appears to be an occluded SVG to [...] underwent TAVR on 01/08. [facility] for ongoing heart failure management. 01/10 Patient transferred back to CICU from CVICU post TAVR for ongoing decompensated heart failure.On arrival to CICU pt is awake and alert, hemodynamically stable. His only complaint is a sore throat. Denies chest pain or shortness of breath. On a bumex drip. 01/11 Transfer to CIU. 01/12 VP DELIVERY-P defibrillator placed. Started on rocephin for UTI. 01/13 Bruno catheter exchanged due to CAUTI. CVL dced. UCx grew pseudamonas. Recephin Dced and cefepime started. 01/14 Pain and hematoma over site of pacemaker insertion, Hgb stable. 2 runs of VT self limiting. Lopressor started. ASSESSMENT & PLAN: Raghu Rosenthal is a 77yrs old Male with PMH of CAD s/p CABG x2 in [place] 10 years ago, HTN, HLD, porcine AVR who initially presented to [facility] ED with complaints of SOB and midchest pressure. Transferred to [facility]U in cardiogenic shock and admitted to CICU. After a brief floor stay pt was transferredback to the CICU. Valve in valve TAVR done 01/08/23. Now downgraded to CIU. 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 Given risk for CHB EP to consider pacemaker. - VP DELIVERY-P device placed 01/12 HFrEF Hematoma TTE 01/09 40-45%. Patient initially presenting with cardiogenic shock and reduced EF on [facility] with history of CABG x 2 over 10 years ago - Aldactone 25mg qd - Lopressor 12.5mg bid - Advance GDMT as tolerated - Bumex gtt - PT/OT - VP DELIVERY-P device placed 01/12 - Hematoma over VP DELIVERY-P, EP consulted, will place weighted bag over, no discharge or overt signs of infection - AdvHF consulted Cardiogenic Shock - resolved NSTEMI Nonsustained VT New LBBB, chest pain. [facility] with Severe three-vessel disease with patent AVERY to LAD, intermediate stenosis in mid RCA, 60% distal left main stenosis. Culprit for his ME appears to be an occluded SVG to [...] mg/hr (01/15/23 1000) albuterol HFA, 2 Puff, B1TO-BBV dextrose, 15 g, PRN dextrose 50% in water, 25 mL, PRN dextrose 50% in water, 50 mL, PRN ondansetron, 4 mg, V9TV-VYZ oxyCODONE, 5 mg, P3NG-PGL phenoL, 1 Ulysses, PRN Lab Results: Recent Labs 01/13/23 0416 [...] VTI ratio 0.39. No paravalvular leak. S/p aoymw-fy-yaqec TAVR with 26 mm Evolut FX (within [...] The left atrium is mildly dilated. S/p xcrrl-pz-zppnw TAVR with 26 mm Evolut FX (within [...] Miller Cooper MD PGY-1, Internal Medicine Pager #[phone] Cortext Preferred Associated attestation - Abdoulaye Canales MD - 02/04/2023 7:57 PM EDT Cardiology Attending Note Patient Name: Raghu Rosenthal Gender: Male Age: 77yrs :1945 MR #: [id number] [facility] #:[id number] Attending Provider: No att. providers found I saw and evaluated Raghu Rosenthal, a 77yrs-year old Male with cardiology inpatient resident/consult/CICU team on 01/15/2023 and agree with the facts as documented in the note. Patient received a VP DELIVERY pacemaker on 01/12/2023. He had developed some hematoma over the device site and is currently getting pressure with a weighted sandbag to resolve the hematoma. His altered mental status is gradually resolving. We noticed 2 episodes of nonsustained VT. He is diuresing well and getting better at Bumex 1 mg/h. Placement discussions being active at this time. Electronically signed by: Abdoulaye Canales MD, [facility] Brake Coupler Dinkey of Cardiology [facility] * Indigo Shi RN - 01/15/2023 [...] assessed every hour and PRN by staff. front desk specialist remains intact with paced rhythm showing on [...] original note were not included. [facility] - Cardiology Teaching Service Progress Note Service Pager (call #1, administrative intern) #[phone] Service Pager (call #2, senior) #[phone] PATIENT IDENTIFICATION: Patient Name: Raghu Rosenthal Age: 77yrs Sex: Male : 1945 MEG: [id number] Admit Date: 12/28/2022 1:45 PM Today's Date: 01/14/2023 Length of Stay: 16 days Admit Diagnosis: NSTEMI (non-ST elevated myocardial infarction) ([facility]) [I21.4] Primary Diagnosis: S/P TAVR (transcatheter aortic valve replacement) Room: CV514/CV514 PCP: Williams Yip MD Primary Insurance: @[email or web address]@ Secondary Insurance: @[email or web address]@ HOSPITAL COURSE Raghu Rosenthal is a 77yrs Male with PMH of CAD s/p CABG x2 in [place] 10 years ago, HTN, HLD, porcine AVR who initially presented to [facility] ED with complaints of SOB and midchest pressure. Patient lives in [place] with his , and is visiting [facility] for the next 3 months. He recently had a ziopatchplaced by the [facility] on 12/27. Following this procedure he had worsening SOB associated with fatigue, malaise and generalized weakness. EMS was called and he was brought to [facility] ED. On arrival he was noted to be in mild respiratory distress and required bipap. WBC of 19. EKG without NUNO, troponin 1.197. CXR consistent with mild interstitial edema, and a small left pleural effusion. He was given nitro sublingual and morphine, and started on BID lovenox. He was admitted to the ICU at [facility]. He was started on empiric vanc, cefepime for possible infection. He was hypotensive requiring levophed with a differential of cardiogenic vs septic shock. He had a repeat EKG done on 12/28 with a new LBBB. His troponin trended as high as 39. Given concerns for acute coronary syndrome, he was transferred to [facility] for further management. On arrival to [...] distal left main stenosis, culprit for his ME appears to be an occluded SVG to [...] bumex drip. 01/11 Transfer to CIU. 01/12 VP DELIVERY-P defibrillator placed. Started on rocephin for UTI. 01/13 Bruno catheter exchanged due to CAUTI. CVL dced. UCx grew pseudamonas. Recephin Dced and cefepime started. ASSESSMENT & PLAN: Raghu Rosenthal is a 77yrs old Male with PMH of CAD s/p CABG x2 in [place] 10 years ago, HTN, HLD, porcine AVR who initially presented to [facility] ED with complaints of SOB and midchest [...] with cardiogenic shock and reduced EF on [facility] with history of CABG x 2 over 10 years ago - Aldactone 25mg qd - Advance GDMT as tolerated - Bumex gtt - PT/OT - VP DELIVERY-P device placed 01/12 Cardiogenic Shock - resolved NSTEMI New LBBB, chest pain. [facility] with Severe three-vessel disease with patent AVERY to LAD, intermediate stenosis in mid RCA, 60% distal left main stenosis. Culprit for his ME appears to be an occluded SVG to [...] Tariq Carl MD Interval Events (Previous 24-hrs): GILBERTO SUBJECTIVE: No CP or SOB, pt reported [...] 1 mg/hr (01/14/23517) albuterol HFA, 2 Puff, J1JA-UDP dextrose, 15 g, PRN dextrose 50% in water, 25 mL, PRN dextrose 50% in water, 50 mL, PRN ondansetron, 4 mg, Q3QD-VFQ phenoL, 1 Ulysses, PRN Lab Results: Recent Labs 01/12/23 03001/13/2341501/14/23 0518 WBC 5.51 7.87 7.59 HEMOGLOBIN 8.6* 8.8* 8.8* HEMATOCRIT 27.6* 28.8* 28.8* 29.1* NEUTROPHIL # 4.18 6.44 5.60 NEUTROPHIL % 76 81 74 MCV 95.2 97.0 96.7 PLATELET 88* 108* 127* Recent Labs 01/12/23 03001/12/23 0745 01/13/23 0416 01/13/23 0748 01/13/23 1807 01/13/23211701/14/23 0518 SODIUM 133* 132* 132* POTASSIUM 3.6 3.7 [...] VTI ratio 0.39. No paravalvular leak. S/p sdmoj-cj-mvtjr TAVR with 26 mm Evolut FX (within [...] The left atrium is mildly dilated. S/p pwilf-uz-uitzb TAVR with 26 mm Evolut FX (within [...] Miller Cooper MD PGY-1, Internal Medicine Pager #[phone] Cortext Preferred Associated attestation - Tariq Carl MD - 01/14/2023 9:54 AM EDT Cardiology Attending / Cardiac Electrophysiology Attending Note: I reviewed the notes and examined the patient with Dr. Cooper on 01/14/2023. I discussed the case with Dr. Cooper and agree with the examination, findings, and plans of care as documented in the resident's note. Already with VP DELIVERY-P implanted. He asked what his left upper chest bandage was . . Surprisedhe had forgotten. PT/OT and advance activity out of bed, ambulate with assistance. May need IPR or SNF for gaining strength afterwards. Electronically signed by Tariq Carl MD 01/14/2023 9:53 AM Hugo Carl MD [facility] Clinical Veterinary Poultry Inspector of Cardiology [facility] * Casi Norton RN - 01/13/2023 6:50 PM EDT No acute changes this shift. Safety precautions maintained throughout shift, pt remained free from injury. Patients needs assessed every hour and PRN by staff. front desk specialist remains intact with paced rhythm showing on the monitor. PIV WNL, patency confirmed on rounds. Scheduled medications given per NOV order. Bumex gtt infusing per MAR at this time. New bruno placed today, [...] Paced on tele monitor. Report given to oncoming day shift RN. * Miller Cooper MD - 01/13/2023 6:32 AM EDT Images from the original note were not included. [facility] - Cardiology Teaching Service Progress Note Service Pager (call #1, administrative intern) #[phone] Service Pager (call #2, senior) #[phone] PATIENT IDENTIFICATION: Patient Name: Raghu Rosenthal Age: 77yrs Sex: Male : 1945 MEG: [id number] Admit Date: 12/28/2022 1:45 PM Today's Date: 01/13/2023 Length of Stay: 15 days Admit Diagnosis: NSTEMI (non-ST elevated myocardial infarction) ([facility]) [I21.4] Primary Diagnosis: S/P TAVR (transcatheter aortic valve replacement) Room: [facility] PCP: Williams Yip MD Primary Insurance: @Deliv@ Secondary Insurance: @[email or web address]@ HOSPITAL COURSE Raghu Rosenthal is a 77yrs Male with PMH of CAD s/p CABG x2 in [place] 10 years ago, HTN, HLD, porcine AVR who initially presented to [facility] ED with complaints of SOB and midchest pressure. Patient lives in [place] with his , and is visiting [facility] for the next 3 months. He recently had a ziopatchplaced by the [facility] on 12/27. Following this procedure he had worsening SOB associated with fatigue, malaise and generalized weakness. EMS was called and he was brought to [facility] ED. On arrival he was noted to be in mild respiratory distress and required bipap. WBC of 19. EKG without NUNO, troponin 1.197. CXR consistent with mild interstitial edema, and a small left pleural effusion. He was given nitro sublingual and morphine, and started on BID lovenox. He was admitted to the ICU at [facility]. He was started on empiric vanc, cefepime for possible infection. He was hypotensive requiring levophed with a differential of cardiogenic vs septic shock. He had a repeat EKG done on 12/28 with a new LBBB. His troponin trended as high as 39. Given concerns for acute coronary syndrome, he was transferred to [facility] management. [facility], patient is awake and alert. He is on low dose levophed. He is warm to the touchand appears well perfused. POCUS with EF visually estimated at 45%. Breathing comfortably on room air. He underwent a R/LHC 12/28/2022 showing severe three-vessel disease with patent AVERY to LAD, intermediate stenosis in mid RCA, 60% distal left main stenosis, culprit for his ME appears to be an occluded SVG to [...] bumex drip. 01/11 Transfer to CIU. 01/12 VP DELIVERY-P defibrillator placed. Started on rocephin for UTI. 01/13 Bruno catheter exchanged due to CAUTI. CVL dced. ASSESSMENT & PLAN: Raghu Rosenthal is a 77yrs old Male with PMH of CAD s/p CABG x2 in [place] 10 years ago, HTN, HLD, porcine AVR who initially presented to [facility] ED with complaints of SOB and midchest [...] with cardiogenic shock and reduced EF on [facility] with history of CABG x 2 over 10 years ago - Aldactone 25mg qd - Advance GDMT as tolerated - Bumex gtt - PT/OT - VP DELIVERY-D device placed Cardiogenic Shock - resolved NSTEMI New LBBB, chest pain. [facility] with Severe three-vessel disease with patent AVERY to LAD, intermediate stenosis in mid RCA, 60% distal left main stenosis. Culprit for his ME appears to be an occluded SVG to [...] mg/hr (01/13/23 1100) albuterol HFA, 2 Puff, V0ZR-WWT dextrose, 15 g, PRN dextrose 50% in water, 25 mL, PRN dextrose 50% in water, 50 mL, PRN iodixanoL, 10-100 mL, ONCE ondansetron, 4 mg, M9SK-UWZ phenoL, 1 Ulysses, PRN Lab Results: Recent Labs 01/11/23 0403 [...] VTI ratio 0.39. No paravalvular leak. S/p guvtk-dh-rjikr TAVR with 26 mm Evolut FX (within [...] The left atrium is mildly dilated. S/p xuhca-fn-hizfc TAVR with 26 mm Evolut FX (within [...] Miller Cooper MD PGY-1, Internal Medicine Pager #[phone] Cortext Preferred Associated attestation - Tariq Carl MD - 01/13/2023 12:02 PM EDT Cardiology Attending / Cardiac Electrophysiology Attending Note: I reviewed the notes and examined the patient with Dr. Cooper on 01/13/2023. I discussed the case with Dr. Cooper and agree with the examination, findings, and plans of care as documented in the resident's note. S/p TAVR and VP DELIVERY-P slowly recovering, gaining strength. Lucid and conversant today but slow. Continue present regimen. Electronically signed by Tariq Carl MD 01/13/2023 12:02 PM Hugo Carl MD [facility] Clinical Veterinary Poultry Inspector of Cardiology [facility] [place] * Casi Norton RN - 01/12/2023 2:32 PM EDT Pt transported via bed on the monitor by RN to EP lab. Bedside timeout completed. Pt denies pain orneeds. VSS at transport. Bruno intact. Bumex gtt infusing per MAR. Will await return to [facility]. * Williams Murray DO - 01/12/2023 9:06 AM EDT Cardiology Progress Note DO Victor Manuel Velazquez Preferred After hours physician assistance: Page Vault Clerk at pager [phone] or senior at pager [phone] 01/12/2023 Admit Date: 12/28/2022 Length of Stay: [...] Value Low-High EKG Text INTERFACED DOCUMENTS - [facility] - ABNORMAL ECG - Sinus bradycardia rate<60 Ventricular premature complex V complex w/ short R-R interval Prolonged PA interval PA >220, V-rate 50-90 Left bundle branch block QRSd>, broad/notched R Prolonged QT interval QTc >500mS When compared with ECG of 09-Jan-2023 0:10:13, Significant change in rhythm Significant repolarization change Reading Physician Howard&Denisse Heart Rate 56 P-R Interval 226 P [place] 64 QRS Duration 136 QT Internal 680 QTcB 657 QRS [place] 6 I-40 [place] 43 T-40 [place] -30 T Wave [place] [address] [place] 207 EKG 12 LEAD Collection Time: 01/10/23 11:30 AM Test Value Low-High EKG Text INTERFACED DOCUMENTS - [facility] - ABNORMAL ECG - Sinus bradycardia rate<60 Left bundle branch block QRSd>, broad/notched R ST elevation secondary to IVCD Multiple VCG criteria Abnormal T, consider ischemia, lateral leads T <-0.20mV, I aVL V5 V6 Prolonged QT interval QTc >500mS When compared with ECG of 10-Jan-2023 0:35:31, No significant change Reading Physician Mickey Heart Rate 57 P-R Interval 212 P [place] 65 QRS Duration 132 QT Internal 674 QTcB 655 QRS [place] 38 I-40 [place] 77 T-40 [place] 1 T [address] [place] [address] [place] 204 Scheduled Meds: acetaminophen tablet, 1,000 mg, [...] PMH of CAD s/p CABG x2 in [place] 10 years ago, HTN, HLD, porcine AVR who initially presented to [facility] ED with complaints of SOB and midchest [...] with cardiogenic shock and reduced EF on [facility] with history of CABG x 2 over 10 years ago - Aldactone 25mg qd - Advance GDMT as tolerated - Bumex gtt - PT/OT Cardiogenic Shock - resolved NSTEMI New LBBB, chest pain. [facility] with Severe three-vessel disease with patent AVERY to LAD, intermediate stenosis in mid RCA, 60% distal left main stenosis. Culprit for his ME appears to be an occluded SVG to [...] was discussed with the attending physician. Williams Murray, [facility] Lunchroom Worker Future Appointments Date Time Provider Department Center 02/13/2023 12:15 PM [facility] 02/13/2023 12:30 PM [facility] CARDIO GRAPHICS 2 [facility] 02/13/2023 1:15 PM [facility] 02/13/2023 1:30 PM Timothy Monroe MD [facility] Associated attestation - Abdoulaye Canales MD - 02/04/2023 7:46 PM EDT Cardiology Attending Note Patient Name: Raghu Rosenthal Gender: Male Age: 77yrs :1945 MR #: [id number] [facility] #:[id number] Attending Provider: No att. providers found I saw and evaluated Raghu Rosenthal, a 77yrs-year old Male with cardiology inpatient resident/consult/CICU team on 01/12/2023 and agree with the facts as documented in the note. Please refer to my addendum to H&P. Electronically signed by: Abdoulaye Canales MD, FAC, DARWIN Brake Coupler Dinkey of Cardiology [facility] * Alissa Loja RN - 01/12/2023 7:13 [...] pads at the bedside as ordered by carnallite plant operator. Report given to [facility] day shift RN. * Jay Leblanc RN - 01/11/2023 6:09 PM EDT Patient transferred from CICU, on arrival Vital Signs WNL, on 2L Oxygen Via NC, In Sinus Kenneth HR 56, Bruno present, on Bumex infusion. * Karen Acosta RN - 01/11/2023 5:10 PM EDT Pt transferred via chair to room CV514 on finisher plate. Continues on Bumex gtt. Belongings packed and personal CPAP transported as well. * Miller Cooper MD - 01/11/2023 5:03 PM EDT Images from the original note were not included. [facility] - Cardiology Teaching Service Progress Note Service Pager (call #1, administrative intern) #[phone] Service Pager (call #2, senior) #[phone] PATIENT IDENTIFICATION: Patient Name: Raghu Rosenthal Age: 77yrs Sex: Male : 1945 MEG: [id number] Admit Date: 12/28/2022 1:45 PM Today's Date: 01/11/2023 Length of Stay: 14 days Admit Diagnosis: NSTEMI (non-ST elevated myocardial infarction) ([facility]) [I21.4] Primary Diagnosis: S/P TAVR (transcatheter aortic valve replacement) Room: [facility] PCP: Williams Yip MD Primary Insurance: @Deliv@ Secondary Insurance: @[email or web address]@ HOSPITAL COURSE Raghu Rosenthal is a 77yrs Male with PMH of CAD s/p CABG x2 in [place] 10 years ago, HTN, HLD, porcine AVR who initially presented to [facility] ED with complaints of SOB and midchest pressure. Patient lives in [place] with his , and is visiting [facility] for the next 3 months. He recently had a ziopatchplaced by the [facility] on 12/27. Following this procedure he had worsening SOB associated with fatigue, malaise and generalized weakness. EMS was called and he was brought to [facility] ED. On arrival he was noted to be in mild respiratory distress and required bipap. WBC of 19. EKG without NUNO, troponin 1.197. CXR consistent with mild interstitial edema, and a small left pleural effusion. He was given nitro sublingual and morphine, and started on BID lovenox. He was admitted to the ICU at [facility]. He was started on empiric vanc, cefepime for possible infection. He was hypotensive requiring levophed with a differential of cardiogenic vs septic shock. He had a repeat EKG done on 12/28 with a new LBBB. His troponin trended as high as 39. Given concerns for acute coronary syndrome, he was [facility] management. On arrival to CICU, patient is awake and alert. He is on low dose levophed. He is warm to the touchand appears well perfused. POCUS with EF visually estimated at 45%. Breathing comfortably on room air. He underwent a R/C 12/28/2022 showing severe three-vessel disease with patent AVERY to LAD, intermediate stenosis in mid RCA, 60% distal left main stenosis, culprit for his ME appears to be an occluded SVG to [...] PMH of CAD s/p CABG x2 in [place] 10 years ago, HTN, HLD, porcine AVR who initially presented to [facility] ED with complaints of SOB and midchest [...] with cardiogenic shock and reduced EF on [facility] with history of CABG x 2 over 10 years ago - Aldactone 25mg qd - Advance GDMT as tolerated - Bumex gtt - PT/OT Cardiogenic Shock - resolved NSTEMI New LBBB, chest pain. [facility] with Severe three-vessel disease with patent AVERY to LAD, intermediate stenosis in mid RCA, 60% distal left main stenosis. Culprit for his ME appears to be an occluded SVG to [...] mg/hr (01/11/23 1700) albuterol HFA, 2 Puff, N3GT-UWN dextrose, 15 g, PRN dextrose 50% in water, 25 mL, PRN dextrose 50% in water, 50 mL, PRN ondansetron, 4 mg, S9IC-ZOL phenoL, 1 Ulysses, PRN Lab Results: Recent Labs 01/09/23 0219 01/10/23 0311 01/11/23 0403 WBC 12.69* 7.22 6.70 HEMOGLOBIN 8.4* 8.2* 9.2* HEMATOCRIT 26.9* 26.1* 29.0* NEUTROPHIL # 11.99* 5.73 5.10 NEUTROPHIL % 95 79 77 MCV 98.5 97.0 97.3 PLATELET 105* 90* 89* Recent Labs 01/10/23 0311 01/10/23 0741 01/10/23 1611 01/10/23 1749 01/10/23 2241 01/11/23 0402 01/11/23 0403 01/11/23 0819 01/11/23 1215 SODIUM 133* 133* 133* POTASSIUM 4.5 3.4* 4.2 4.4 CHLORIDE 96* 95* 95* GLUCOSE POCT 98 < > < > < > 111* 145* GLUCOSE 103 151* 101 BUN 91* 97* 96* CREATININE 2.10* 2.12* 2.10* < > = values in this interval not displayed. Recent Labs 01/10/23 0311 01/10/23 2241 01/11/23 0403 MAGNESIUM 2.7* 2.2 2.2 Recent Labs [...] VTI ratio 0.39. No paravalvular leak. S/p rjkbo-cc-gkltb TAVR with 26 mm Evolut FX (within [...] The left atrium is mildly dilated. S/p nithh-uj-yqdgc TAVR with 26 mm Evolut FX (within [...] Miller Cooper MD PGY-1, Internal Medicine Pager #[phone] Cortext Preferred Associated attestation - Abdoulaye Canales MD - 02/04/2023 7:43 PM EDT Cardiology Attending Note Patient Name: Raghu Rosenthal Gender: Male Age: 77yrs :1945 MR #: [id number] [facility] #:[id number] Attending Provider: No att. providers found I [...] new LBBB. EP on board for potential VP DELIVERY-P. The patient has a central line and will have a plan for removing that. Asthis may interfere with pacemaker implantation. Appreciate EP recommendations. Electronically signed by: Abdoulaye Canales MD, FAC, DARWIN Brake Coupler Dinkey of Cardiology [facility] * Adán Romano NP - 01/11/2023 4:22 PM EDT Images from the original note were not included. [facility] team updated, via Cortext about the transfer of patient Raghu Rosenthal to [facility]. Electronically signed by Adán Romano NP 01/11/2023 4:22 PM * Zac Etsrada OTR/Jessica - 01/11/2023 4:12 PM EDT Images from the original note were not included. OCCUPATIONAL THERAPY DAILY NOTE-INPATIENT [facility] Patient Name: Raghu Rosenthal Date of Treatment: 01/11/2023 Date of : 1945 Age: 77yrs Date of admission: 12/28/2022 Attending Provider: Anam Winchester MD Start Time: 1529 End Time: 1611 Subjective: Pt states, I feel relaxed. Received semi-fowlers, at bedside. Pt agreeable to participate in OT session this date. Objective/Activities Addressed Today: OT General - 01/11/23 161 PRECAUTIONS Precautions Bleeding;Cardiac;Falls Sitting Tolerance Surface Bed [...] Discharge Caregiver : Spouse Caregiver Availability : time clock mechanic Physical assist caregiver able to provide: Significant JACK Peters/Jessica * Gary Patiño - 01/11/2023 4:11 PM EDT PHYSICAL THERAPY DAILY NOTE-[facility] Patient Name: Raghu Rosenthal Date of Treatment: 01/11/2023 Date of : 1945 Age: 77yrs Date of admission: 12/28/2022 Attending Provider: Abdoulaye Canales MD Start Time: Time In: 1529 End Time: Time Out: 161 Subjective: Pt found sleeping in bed upon [...] assess stairs up/down: due to limited strength/endurance [facility] SHORT FORMS TOOL BASIC MOBILITY Raghu Rosenthal [...] a railin- A Lot Basic Mobility Scores [facility] Mobility Raw Score: 16 [facility] Mobility t-Score: 38.32 [facility] Mobility G-Code Modifier: CK Legend for Raw [...] DC from Hospital: Spouse Caregiver Availability : time clock mechanic Caregiver/Physical Assistance available: Significant assistance available Equipment Needed at DC: Will be assessed at next level of care DIVYA Oconnell Associated attestation - Nidhi Humphrey PT - 01/12/2023 4:33 PM EDT This story writer was present for direct supervision and [...] Rosenthal 1945 Hosp day:13 days Referring MD: Theodora, Williams Villalobos MD CICU Day: # 2 Code Status: Full Code Chief Complaint: Severe Narrative/Overnight/ROS: (History and SOAP notes have been reviewed in the EMR) 01/11/2023 neg 1.6 litres on 1mg/hr bumex. Currently up in the chair, can pull 1000cc on incentive spirometer with encouragement. Only complaint is headache Hospital Course: Raghu Rosenthal is a 77yrs Male with PMH of CAD s/p CABG x2 in [place] 10 years ago, HTN, HLD, porcine AVR who initially presented to [facility] ED with complaints of SOB and midchest pressure. Patient lives in [place] with his , and is visiting [facility] for the next 3 months. He recently had a [facility] by the [facility] on 12/27. Following this procedure he had worsening SOB associated with fatigue, malaise and generalized weakness. EMS was called and he was brought to [facility] ED. On arrival he was noted to be in mild respiratory distress and required bipap. WBC of 19. EKG without NUNO, troponin 1.197. CXR consistent with mild interstitial edema, and a small left pleural effusion. He was given nitro sublingual and morphine, and started on BID lovenox. He was admitted to the ICU at [facility]. He was started on empiric vanc, cefepime for possible infection. He was hypotensive requiring levophed with a differential of cardiogenic vs septic shock. He had a repeat EKG done on 12/28 with a new LBBB. His troponin trended as high as 39. Given concerns for acute coronary syndrome, he was transferred to [facility] for further management. On arrival to [...] distal left main stenosis, culprit for his ME appears to be an occluded SVG to [...] Problems Diagnosis *01/08/23 TransCatheter Aortic Valve Replacement (Qnhsk-fw-Lrsnz, 26 Medtronic Evolut Pro, via the Left Transfemoral Approach) EF 35% CKD (chronic kidney disease) stage 3, GFR 30-59 ml/min ([facility]) FILIBERTO (acute kidney injury) ([facility]) Pulmonary edema Cardiogenic shock ([facility]) Acute on chronic HFrEF (heart failure with reduced ejection fraction) ([facility]) NSTEMI (non-ST elevated myocardial infarction) ([facility]) Hypertension Hyperlipidemia Coronary artery disease Problem List: Decompensated HFrEF Assessment: ECHO with EF 41%. Patient initially presenting [facility] of [facility] x 2 over 10 years ago Plan: Bumex drip, keep at current rate to try to pull to net neg 2 litres Holding BB, SHERMAN for now Spironolactone Can transfer out of ICU PT. Bronchial hygiene NSTEMI, Coronary Artery Disease Assessment: Presented with new LBBB, chest pain. [facility] with Severe three-vessel disease with patent AVERY to LAD, intermediate stenosis in mid RCA, 60% distal left main stenosis. Culprit for his ME appears to be an occluded SVG to [...] Nutrition Therapy 4. Glycemic Control: -101 mg/dL (01/11 0403) -12/28/2022: Hemoglobin A1C 5.0 % -N/A 5. [...] PRN Inpatient Medications: albuterol HFA, 2 Puff, W6IO-MRI ondansetron, 4 mg, O2VX-ZRS phenoL, 1 Ulysses, PRN Echo : Result Date: 01/10/2023 Conclusion The left ventricle is mildly dilated. Ejection Fraction = 40-45%. Abnormal (paradoxical)septal motion consistent with LBBB. The right ventricle is normal in size and function. The left atrium is mildly dilated. S/p yfhkk-al-ogrbn TAVR with 26 mm Evolut FX (within [...] 18 Ht 1.753 m Wt 123.8 kg UwW199% BMI 40.29 kg/m?? Temp (24hrs), Av.6 ??C [...] saw and examined the patient with Mr. Hainesr and the Medicine Critical Care Team and [...] the original note were not included. [facility] CARDIOLOGY BRIEF FELLOW NOTE: Patient is appropriate for TF to CIU. We will accept patient to [facility]U resident teaching service under Dr. Ludwig. Osmany Isidro MD, A Cardiovascular Sciences Fellow [facility] [employer] at [facility] preferred After-hours pager: [phone] * Anam Winchester MD - 01/11/2023 9:41 [...] from the original note were not included. [facility] HEART FAILURE PROGRAM ADVANCED HEART FAILURE CONSULTATION [...] valve stenosis S/P TransCatheter Aortic Valve Replacement (Ylrke-sa-Tjapg, 26 Medtronic Evolut Pro, via the Left Transfemoral Approach) on 01/08/23, POD#3. Repeat TTE on 01/09 with well seated normal functioning prosthetic AV with no paravalvular leak. Hx of AVR with 25 mm Magna in 2012. Post-procedural symptomatic Bradycardia with pre-existing incomplete LBBB and first degree AV block: PA interval 210 ms and QRS 105 ms [...] pressure on 12/28 as a TF from [facility]. He was found to be in cardiogenic shock, acute decompensated HF (LVEF 40% 12/28, last TTE in 02/2022 with LVEF of 65% and increasing aortic prosthetic valve gradients), NSTEMI 2/2 occluded SVG to ramus graft on cA 12/28, and severe degenerative prosthetic AVR stenosis. He underwent TransCatheter Aortic Valve Replacement (Sggco-gd-Aguen, 26 Medtronic EvolutPro, via the Left Transfemoral [...] 01/08/2023 Performed by Tania Hartley MD at [facility] REPLACEMENT, AORTIC VALVE, TRANSCATHETER, FEMORAL APPROACH (MEDTRONIC 26 ELSA); Intraoperative Echocardiogram Left 01/08/2023 Performed by Tania Hartley MD at [facility] [place] - CORONARY ARTERY BYPASS GRAFT [place] [...] is filling retrograde likely culprit for this ME. Proximal ramus has a 70% stenosis, AVERY [...] distal left main stenosis. Culprit for his ME appears to be an occluded SVG to ramus graft. There is flowin the ramus with proximal 70% stenosis. 2. He is also noted to have severely degenerated bioprosthetic aortic valve, invasive gradients reviewed severely stenotic with mean gradient over 40 mmHg. 3. Decompensated heart failure with preserved cardiac output. We had discontinued his Levophed on arrival to the [facility]. LVEDP 30mmHg. ECHOCARDIOGRAPHY : 12/28/2022 The study [...] Osmany Isidro MD, A Cardiovascular Sciences Fellow [facility] Heart [facility] at [facility] Cortext preferred After-hours pager: [phone] cc: Anam Winchester MD Associated attestation - Ame Hardy MD - 01/15/2023 11:37 AM EDT Images from the original note were not included. [facility] Heart Failure Team Date: 01/11/23 Raghu Yuri was discussed with Dr. Isidro. The patient was seen/examined. I facilitated the development of the plan of care in collaboration with the heart failure team. Ame Hardy M.D., [facility] Advanced Heart Failure Meat Stocker Contact via Cortext please * Ame Hardy MD - 01/11/2023 8:40 AM EDT Images from the original note were not included. [facility] Advanced Heart Failure Team PRELIMINARY TABLE ROUNDS RECOMMENDATIONS: > continue with diuresis as tolerated > chronotropic incompetence likely playing a role- will likely benefit from PPM Ame Hardy M.D. Advanced Heart Failure Meat Stocker Contact via Cortext please * Pam Lraes RN - 01/11/2023 5:42 AM EDT Shift Summary: Acute changes reported to provider, will report to oncoming RN. * Timothy Monroe MD - 01/10/2023 1:37 PM EDT Name:Raghu Rosenthal Room: [place] [address] DOS: 01/10/2023 Hospital day 13 SUBJECTIVE: He is doing ok. Sitting in chair. Walked a short distance yesterday with PT. Made 3 L urine yesterday. Off epi. On bumex drip. EKG - SB at 57 bpm, LBBB, PA interval 212 ms. Preoperatively, he had LBBB. [...] phenoL (CHLORASEPTIC) 1.4 % oral spray 1 Ulysses polyethylene glycol (GLYCOLAX) packet 17 g [Held [...] had RIJ cordis. Can use to float [place] Karon catheter if needed. At this time, he is making good urine, so would continue diuresis with bumex drip +/- metolazone. Monitor electrolytes BID while on bumex drip. Stop trazodone. Keep K > 4, Mg > 2. I discussed with CICU php programmer who will accept lateral transfer. Serial daily CXRs to monitor RUL infiltrate. His WBC count was 13 two days ago,12 yesterday but down to 7.7 today. Will defer to CICU about decision whether he needs abx for HCAP. For now, continue to monitor WBC and CXR. Electronically signed by Timothy Monroe MD 01/10/2023 1:44 PM * Tran Fonseca, ALEIDA - 01/10/2023 11:05 AM EDT Transfer Summary Note Provider ALEIDA Cochran Attending Physician: Tania Hartley MD 01/10/2023 Admit Date: 12/28/2022 Length of Stay: 12 days Accepting Service: CICU Reason for Transfer: HF management Raghu Rosenthal, 77yrs old, Male CODE STATUS: Full Code ADMIT DIAGNOSIS: S/P TAVR (transcatheter aortic valve replacement) Active Hospital Problems Diagnosis *01/08/23 TransCatheter Aortic Valve Replacement (Bpztg-ub-Ukedx, 26 Medtronic Evolut Pro, via the Left Transfemoral Approach) EF 35% CKD (chronic kidney disease) stage 3, GFR 30-59 ml/min ([facility]) FILIBERTO (acute kidney injury) ([facility]) Pulmonary edema Cardiogenic shock ([facility]) Acute on chronic HFrEF (heart failure with reduced ejection fraction) ([facility]) NSTEMI (non-ST elevated myocardial infarction) ([facility]) Hypertension Hyperlipidemia Coronary artery disease HOSPITAL COURSE: Raghu Rosenthal is a 77yrs Male with PMH of CAD s/p CABG x2 in [place] 10 years ago, HTN, HLD, porcine AVR who initially presented to [facility] ED with complaints of SOB and midchest pressure. Patient lives in [place] with his , and is visiting [facility] for the next 3 months. He recently had a ziopatchplaced by the [facility] on 12/27. Following this procedure he had worsening SOB associated with fatigue, malaise and generalized weakness. EMS was called and he was brought to [facility] ED. On arrival he was noted to be in mild respiratory distress and required bipap. WBC of 19. EKG without NUNO, troponin 1.197. CXR consistent with mild interstitial edema, and a small left pleural effusion. He was given nitro sublingual and morphine, and started on BID lovenox. He was admitted to the ICU at [facility]. He was started on empiric vanc, cefepime for possible infection. He was hypotensive requiring levophed with a differential of cardiogenic vs septic shock. He had a repeat EKG done on 12/28 with a new LBBB. His troponin trended as high as 39. Given concerns for acute coronary syndrome, he was transferred to [facility] health for further management. On arrival to [...] 0302 01/09/23 1445 01/09/23 1744 01/09/23 2321 01/10/2331001/10/23 0741 SODIUM 134* -- 134* -- 132* -- 132* 133* -- POTASSIUM 3.5 < > 3.4* -- 3.4* -- 3.4* 4.5 -- CHLORIDE 98 -- 97* -- 96* -- 95* 96* -- BICARBONATE 28 -- 27 -- 25 -- 29 27 -- GLUCOSE 165* < > 181* [...] 0439 01/08/23 0954 01/08/23 1234 01/09/23 0219 01/10/23310 WBC 4.78 -- 13.14* 12.69* 7.22 HGB [...] [facility] Date: 01/10/2023, 12:45 PM LOC:CV444/CV444 Raghu Welch 1945 Hosp day:12 days Referring MD: Williams [...] PMH of CAD s/p CABG x2 in [place] 10 years ago, HTN, HLD, porcine AVR who initially presented to [facility] ED with complaints of SOB and midchest pressure. Patient lives in [place] with his , and is visiting [facility] for the next 3 months. He recently had a ziopatchplaced by the [facility] on 12/27. Following this procedure he had worsening SOB associated with fatigue, malaise and generalized weakness. EMS was called and he was brought to [facility] ED. On arrival he was noted to be in mild respiratory distress and required bipap. WBC of 19. EKG without NUNO, troponin 1.197. CXR consistent with mild interstitial edema, and a small left pleural effusion. He was given nitro sublingual and morphine, and started on BID lovenox. He was admitted to the ICU at [facility]. He was started on empiric vanc, cefepime for possible infection. He was hypotensive requiring levophed with a differential of cardiogenic vs septic shock. He had a repeat EKG done on 12/28 with a new LBBB. His troponin trended as high as 39. Given concerns for acute coronary syndrome, he was transferred to [facility] health for further management. On arrival to [...] distal left main stenosis, culprit for his ME appears to be an occluded SVG to ramus graft. He was also noted to have severely degenerated bioprosthetic aortic valve, invasive gradients reviewed severely stenotic with mean gradient over 40 mmHg. He was transferred out to the U cards service while workup for TAVR was done. He was transferred back to CICU on 01/04for optimization prior to TAVR. He underwent TAVR on 01/08. Transferred back to CICU on 01/10 for ongoing heart failure management. Active Hospital Problems: Active Hospital Problems Diagnosis *01/08/23 TransCatheter Aortic Valve Replacement (Pqxei-kr-Qoqos, 26 Medtronic Evolut Pro, via the Left Transfemoral Approach) EF 35% CKD (chronic kidney disease) stage 3, GFR 30-59 ml/min ([facility]) FILIBERTO (acute kidney injury) ([facility] Pulmonary edema Cardiogenic shock ([facility] Acute on chronic HFrEF (heart failure with reduced ejection fraction) ([facility]) NSTEMI (non-ST elevated myocardial infarction) ([facility]) Hypertension Hyperlipidemia Coronary artery disease Problem List: Decompensated HFrEF Assessment: ECHO with EF 41%. [facility] of [facility] x 2 over 10 years ago Plan: Bumex drip Holding BB, SHERMAN in decompensated state Aldactone If his kidney function worsens or UO drops off, consider PAC. NSTEMI, Coronary Artery Disease Assessment: Presented with new LBBB, chest pain. [facility] with Severe three-vessel disease with patent AVERY to LAD, intermediate stenosis in mid RCA, 60% distal left main stenosis. Culprit for his ME appears to be an occluded SVG to [...] 1200) PRN Inpatient Medications: albuterol, 2.5 mg, G2VT-RBV ondansetron, 4 mg, F2FF-COE phenoL, 1 Ulysses, PRN Echo : ECHO Result Date: 12/28/2022 [...] PLAN Patient was seen and evaluated with Dr. Winchester, Anam Underwood MD. Plan of care was reviewed in [...] for now Anam Winchester MD * Zara Capellan ACN - 01/10/2023 1:54 AM EDT CV Critical Care Progress Note Raghu Rosenthal 77yrs Male [id number] POD # 2 S/P TransCatheter Aortic Valve Replacement (Augww-ub-Uzrrx, 26 Medtronic Evolut Pro, via the Left [...] Problem List: 01/08/23 TransCatheter Aortic Valve Replacement (Zvdow-ox-Fzanl, 26 Medtronic Evolut Pro, via the Left Transfemoral Approach) EF 35% (01/08/2023) Assessment: POD #3 Plan: TAVR per unit protocol Monitor VS Monitor clinical presentation for signs of decreased perfusion Monitor UOP CXR and Labs per protocol Aggressive pulmonary toilet, cont home inhalers ASA/Plavix/Heparin SQ Hold Trazodone Regular diet NSTEMI (non-ST elevated myocardial infarction) ([facility]) (12/28/2022); Coronary artery disease (12/28/2022) [...] statin not tolerated so held Cardiogenic shock ([facility]) (01/08/2023) Assessment: Weaned off Epinephrine overnight, cool feet with diminished DPP but difficult to assessrelated to pitting edema Plan: Cont to monitor clinically Place PA catheter if concern about cardiac function Acute on chronic HFrEF (heart failure with reduced ejection fraction) ([facility]) (01/08/2023) Assessment: EF 35%, presented in decompensated HF, Bumex infusion, elevated BNP Plan: Cont Bumex infusion Cont Aldactone Trend BNP Maintain SBP CKD (chronic kidney disease) stage 3, GFR 30-59 ml/min ([facility]) (01/09/2023) Assessment: Creatinine 1.62 (02/19/2020), [...] by: RUMA Crouch 01/10/2023 * Tania Gomes [facility] - 01/09/2023 10:41 AM EDT Case Management Plan of Care Note MR #: [id number] Date of Admission: 12/28/2022 Attending Physician: Tania Hartley MD Principle Problem : S/P TAVR (transcatheter aortic valve replacement) Hospital Problems: Active Hospital Problems Diagnosis *01/08/23 TransCatheter Aortic Valve Replacement (Pkltd-fm-Tykqz, 26 Medtronic Evolut Pro, via the Left Transfemoral Approach) EF 35% CKD (chronic kidney disease) stage 3, GFR 30-59 ml/min ([facility]) FILIBERTO (acute kidney injury) ([facility] Pulmonary edema Cardiogenic shock ([facility]) Acute on chronic HFrEF (heart failure with reduced ejection fraction) ([facility]) NSTEMI (non-ST elevated myocardial infarction) ([facility]) Hypertension Hyperlipidemia Coronary artery disease Insurance: Primary: Payor: MEDICARE / Plan: MEDICARE PART A & B / Product Type: Medicare / Secondary: [facility] [place] LOS: 12 Current Date\Time: 01/09/2023, 10:41 AM Participants (discussed with separately):This Product Development Specialist per chart review. Anticipated Discharge Destination: Home with vs. 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 Per pts they rented the condo for 3 months, this is the 3rd month. The address of the condo is: [address] [place], [place]. The condo is on the 4th floor, there is an elevator. Pt is very independent at baseline. No HH/DME used [employer] INTERFACE DES[employer]. Drives self. Both pt and his are retired. Medicare/VA insurance. Rx coverage. Plan for discharge with once medically ready. Per pt and it will depend on how pt is doing where they go, home to [place] vs [place], [place]. They have 3 adult daughters that live in [place] as well. One daughter is here now visiting since pt had surgery yesterday. They did drive here from [place]. Per pt he would rather fly home [...] Information: Self, Chart Review. PURA Hannon Cardiac Product Development Specialist-[facility] [email or web address] For Case Management assistance Sunday through Sunday, Weekends or Holidays 8:30 am-5:00 pm, please page [phone] pager [phone]. For Case Management assistance after 5:00 pm, please call [phone]. * Lan Berumen RN - 01/09/2023 9:16 [...] Care Progress Note Raghu Rosenthal 77yrs Male [id number] POD # 1 S/P TransCatheter Aortic Valve Replacement (Tzzuu-cv-Woqbf, 26 Medtronic Evolut Pro, via the Left [...] Patient Active Hospital Problem List: Cardiogenic shock ([facility]) Assessment: s/p valve in valve TAVR. On 0.02 Epi and 0.04 Norepi. 01/09 Continues on Epi. Off Levo Plan: Diurese via Bumex gtt with goal -1 to 2 L/shift, intermittent diuril Wean epi as per attending discretion Acute on chronic HFrEF (heart failure with reduced ejection fraction) ([facility]) Assessment: Post-op EF 35%. Presented in decompensated HF requiring Lasix gtt and CPAP vs BIPAP on admission Plan: Diurese via Bumex gtt, intermittent diuril Continue epi and wean as appropriate Maintain adequate SBP Follow up echo Restart Spironolactone FILIBERTO on CKD (chronic kidney disease) stage 3, GFR 30-59 ml/min ([facility]) Assessment: Cr baseline around 1.7, increased to 2.5 likely due to renal congestion from HF. Improved back to baseline with diuresis. Sightly worse this AM 01/09, but expected as he received contrast dye in OR. Plan: Continue diuresis Monitor UOP/BUN/Cr Avoid nephrotoxic agents and hypotension 01/08/23 TransCatheter Aortic Valve Replacement (Tjrgt-ws-Buaka, 26 Medtronic Evolut Pro, via the Left [...] mg QHS NSTEMI (non-ST elevated myocardial infarction) (CMS/HCC) (12/28/2022), [...] Care Progress Note Raghu Rosenthal 77yrs Male [id number] POD # 0 S/P TransCatheter Aortic Valve Replacement (Ljgda-ef-Jgcof, 26 Medtronic Evolut Pro, via the Left [...] Patient Active Hospital Problem List: Cardiogenic shock (CMS/HCC) (01/08/2023) Assessment: s/p valve in valve TAVR. On 0.02 Epi and 0.04 Norepi Plan: Diurese via Lasix drip Wean epi as able Levo support for SBP > 100 Acute on chronic HFrEF (heart failure with reduced ejection fraction) (CMS/HCC) (01/08/2023) Assessment: Post-op EF 35% Plan: Start IV Lasix Continue epi and wean as appropriate Maintain adequate SBP Follow up echo as outpatient 01/08/23 TransCatheter Aortic Valve Replacement (Acyas-yu-Cucxc, 26 Medtronic Evolut Pro, via the Left [...] acute changes this shift, SBAR given to REAL ESTATE SALESPERSON. * Kendra Whitehead RDN - 01/07/2023 12:26 PM EDT Patient: Raghu Rosenthal Today's Date / Time: 01/07/2023 / 12:26 PM Room/Bed: CV433/CV433 LOS: 9 days Initial Nutrition Assessment Contact: Clinical RDN Available via [employer] Nutrition Interventions & Recommendations for Provider Recommend [...] 122.6 kg Height: 175.3 cm BMI: 39.896 [place] Body Weight (kg) (Nutrition): 73 Nutrition Focused [...] 146 g/day (2 g/kg IBW) Calorie Needs: 1963-3978 kcal/day (22-25 kcal/kg IBW) Fluid Needs: per [...] Surgery Consult Progress Note 01/07/2023 Raghu Rosenthal [id number] CV433/CV433 Referring MD: Williams Yip MD Consulting [...] Diagnosis Code NSTEMI (non-ST elevated myocardial infarction) (CMS/HCC) I21.4 Acute coronary syndrome (CMS/HCC) I24.9 Shock (CMS/HCC) R57.9 Hypertension I10 Hyperlipidemia E78.5 Coronary artery disease I25.10 Vitreous degeneration, 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 Thrombocytopenia, unspecified (CMS/HCC) D69.6 Sensorineural hearing loss, bilateral H90.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, unspecified (CMS/HCC) L40.50 Posttraumatic stress disorder 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 Cardiac Critical Care Progress Note DO David Date: 01/07/2023, 6:55 AM LOC:CV433/CV433 Raghu Rosenthal 1945 Hosp day:9 days Referring MD: Theodora, Williams Villalobos MD ICU Day: # 2 Code Status: [...] PMH of CAD s/p CABG x2 in [place] 10 years ago, HTN, HLD, porcine AVR who initially presented to [facility] ED with complaints of SOB and midchest pressure. Patient lives in [place] with his , and is visiting [facility] for the next 3 months. He recently had a ziopatchplaced by the [facility] on 12/27. Following this procedure he had worsening SOB associated with fatigue, malaise and generalized weakness. EMS was called and he was brought to [facility] ED. On arrival he was noted to be in mild respiratory distress and required bipap. WBC of 19. EKG without NUNO, troponin 1.197. CXR consistent with mild interstitial edema, and a small left pleural effusion. He was given nitro sublingual and morphine, and started on BID lovenox. He was admitted to the ICU at [facility]. He was started on empiric vanc, cefepime for possible infection. He was hypotensive requiring levophed with a differential of cardiogenic vs septic shock. He had a repeat EKG done on 12/28 with a new LBBB. His troponin trended as high as 39. Given concerns for acute coronary syndrome, he was transferred to [facility] for further management. On arrival to CICU, patient is awake and alert. He is on low dose levophed. He is warm to the touchand appears well perfused. POCUS with EF visually estimated at 45%. Breathing comfortably on room air. He underwent a R/[facility] 12/28/2022 showin. Severe three-vessel disease with patent AVERY to LAD, intermediate stenosis in mid RCA, 60% distal left main stenosis. Culprit for his ME appears to be an occluded SVG to ramus graft. There is flowin the ramus with proximal 70% stenosis. 2. He is also noted to have severely degenerated bioprosthetic aortic valve, invasive gradients reviewed severely stenotic with mean gradient over 40 mmHg. 3. Decompensated heart failure with preserved cardiac output. We had discontinued his Levophed on arrival to the [facility]. LVEDP 30mmHg. Right heart catheterization: RA:14 RV:55/10 [...] syndrome (CMS/HCC) NSTEMI (non-ST elevated myocardial infarction) ([facility]) Shock (CMS/HCC) Hypertension Hyperlipidemia Coronary artery disease Cardiogenic shock, resolved NSTEMI HFrEF with EF 41% - Patient initially presenting with cardiogenic shock and reduced EF on [facility] with history of CABG x 2 over [...] PRN Inpatient Medications: acetaminophen liquid, 650 mg, [id number] albuterol, 2.5 mg, U2XY-WCK ondansetron, 4 mg, [id number] Echo : ECHO Result Date: 12/28/2022 Reason [...] and care were [facility] I have seen and examined [...] AVR (~10 years ago) who presented to [facility] CICU on 01/04/22 for volume optimization prior [...] plan for valve in valve TAVR on 4/17/23 Obtain coagulation studies prior to TAVR FEN: Cardiac Diet Prophylaxis: heparin Family updated. Full Code Disposition: patient remains critically ill, continue current level of care. This patient is critically ill with significant potential for decline. 32 minutes critical care time spent excluding teaching and procedures. Maxwell Smith MD Brake Coupler Dinkeydietary director Division of Pulmonary, Critical Care and Sleep Medicine [facility] * Franko Talavera RN - 01/07/2023 6:42 AM EDT Shift Summary: No acute changes this shift. Will report to oncoming RN. * Any Kwong RCP - 01/06/2023 9:58 PM EDT Assisting unit MARINE TECHNICIAN. Called by RN to place patient on [...] Critical Care Progress Note Michael Talleyrmduniajamal, Date: 01/06/2023, 6:44 AM LOC:CV433/CV433 Raghu Rosenthal 1945 Hosp day:8 days Referring [...] PMH of CAD s/p CABG x2 in [place] 10 years ago, HTN, HLD, porcine AVR who initially presented to [facility] ED with complaints of SOB and midchest pressure. Patient lives in [place] with his , and is visiting [facility] for the next 3 months. He recently had a ziopatchplaced by the [facility] on 12/27. Following this procedure he had worsening SOB associated with fatigue, malaise and generalized weakness. EMS was called and he was brought to [facility] ED. On arrival he was noted to be in mild respiratory distress and required bipap. WBC of 19. EKG without NUNO, troponin 1.197. CXR consistent with mild interstitial edema, and a small left pleural effusion. He was given nitro sublingual and morphine, and started on BID lovenox. He was admitted to the ICU at [facility]. He was started on empiric vanc, cefepime for possible infection. He was hypotensive requiring levophed with a differential of cardiogenic vs septic shock. He had a repeat EKG done on 12/28 with a new LBBB. His troponin trended as high as 39. Given concerns for acute coronary syndrome, he was transferred to [facility] for further management. [facility], patient is awake and alert. He is on low dose levophed. He is warm to the touchand appears well perfused. POCUS with EF visually estimated at 45%. Breathing comfortably on room air. He underwent a /[facility] 12/28/2022 showin. Severe three-vessel disease with patent AVERY to LAD, intermediate stenosis in mid RCA, 60% distal left main stenosis. Culprit for his ME appears to be an occluded SVG to ramus graft. There is flowin the ramus with proximal 70% stenosis. 2. He is also noted to have severely degenerated bioprosthetic aortic valve, invasive gradients reviewed severely stenotic with mean gradient over 40 mmHg. 3. Decompensated heart failure with preserved cardiac output. We had discontinued his Levophed on arrival to the [facility]. LVEDP 30mmHg. Right heart catheterization: RA:14 RV:55/10 [...] syndrome (CMS/HCC) NSTEMI (non-ST elevated myocardial infarction) ([facility]) Shock (CMS/HCC) Hypertension Hyperlipidemia Coronary artery disease Cardiogenic shock, resolved NSTEMI HFrEF with EF 41% - Patient initially presenting with cardiogenic shock and reduced EF on [facility] with history of CABG x 2 over [...] PRN Inpatient Medications: acetaminophen liquid, 650 mg, [id number] albuterol, 2.5 mg, X1LT-TJL ondansetron, 4 mg, [id number] Echo : ECHO Result Date: 12/28/2022 Reason [...] and care were reviewed with Dr. Hernandez ([facility] fellow). I have seen and examined [...] AVR (~10 years ago) who presented to [facility] CICU on 01/04/22 for volume optimization prior [...] excluding teaching and procedures. Maxwell Smith MD Brake Coupler Dinkeydietary director Division of Pulmonary, Critical Care and Sleep Medicine [facility] * Melida Real, JULIA - 01/06/2023 5:55 AM EDT Shift summary: No acute events during the night. VSS on monitor. Patient remains on 5L NC. Lasix gtt infusing per MAR. Net - 608 ml during the night. See flowsheet for further documentation. Problem: Adult Inpatient Plan of Care Goal: Plan of Care Review Outcome: Ongoing, Progressing Problem: Fall Injury Risk Goal: Absence of Fall and Fall-Related Injury Outcome: Ongoing, Progressing * Melida Real RN - 01/05/2023 10:15 PM EDT Assumed care of patient at this time. 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 See flowsheet for documentation. * Michael Luna RN - 01/05/2023 4:27 PM EDT Reviewed with patient and family * Natividad Haley [facility] - 01/05/2023 12:38 PM EDT Case Management Plan of Care Note MR #: [id number] Date of Admission: 12/28/2022 Attending Physician: Maxwell Smith MD Principle Problem : Acute coronary syndrome ([facility]/HCC) Hospital Problems: Active Hospital Problems Diagnosis *Acute coronary syndrome ([facility]) NSTEMI (non-ST elevated myocardial infarction) ([facility]) Shock ([facility]) Hypertension Hyperlipidemia Coronary artery disease Insurance: Primary: Payor: MEDICARE / Plan: MEDICARE PART A & B / Product Type: Medicare / Secondary: [facility]: [place] LOS: 8 Current Date\Time: 01/05/2023, 12:38 PM Participants (discussed with separately):This Product Development Specialist per chart review. Anticipated Discharge Destination: Likely [...] progression and appropriate discharge disposition. PURA Worrell [facility] Product Development Specialist [email or web address] For Urgent Case Management assistance Sunday through Sunday, Weekends or Holidays 8:30-5:00PM, please page [phone], pager [phone] For Case Management assistance after 5:00PM, please call [phone] * Michael Luna RN - 01/05/2023 11:10 [...] PMH of CAD s/p CABG x2 in [place] 10 years ago, HTN, HLD, porcine AVR who initially presented to [facility] ED with complaints of SOB and midchest pressure. Patient lives in [place] with his , and is visiting [facility] for the next [facility] months. He recently had a ziopatchplaced by the [facility] on 12/27. Following this procedure he had worsening SOB associated with fatigue, malaise and generalized weakness. EMS was called and he was brought to [facility] ED. On arrival he was noted to be in mild respiratory distress and required bipap. WBC of 19. EKG without NUNO, troponin 1.197. CXR consistent with mild interstitial edema, and a small left pleural effusion. He was given nitro sublingual and morphine, and started on BID lovenox. He was admitted to the ICU at [facility]. He was started on empiric vanc, cefepime for possible infection. He was hypotensive requiring levophed with a differential of cardiogenic vs septic shock. He had a repeat EKG done on 12/28 with a new LBBB. His troponin trended as high as 39. Given concerns for acute coronary syndrome, he was transferred to [facility] for further management. On arrival to CICU, [...] distal left main stenosis. Culprit for his ME appears to be an occluded SVG to ramus graft. There is flowin the ramus with proximal 70% stenosis. 2. He is also noted to have severely degenerated bioprosthetic aortic valve, invasive gradients reviewed severely stenotic with mean gradient over 40 mmHg. 3. Decompensated heart failure with preserved cardiac output. We had discontinued his Levophed on arrival to the [facility]. LVEDP 30mmHg. Right heart catheterization: RA:14 RV:55/10 [...] with cardiogenic shock and reduced EF on [facility] with history of CABG x 2 over [...] PRN Inpatient Medications: acetaminophen liquid, 650 mg, B3VH-SVR ondansetron, 4 mg, G2GS-FDH Echo : ECHO Result Date: 12/28/2022 Reason [...] and care [facility] I have seen and examined [...] AVR (~10 years ago) who presented to [facility] CICU on 01/04/22 for volume optimization prior [...] excluding teaching and procedures. Maxwell Smith MD Brake Coupler Dinkeydietary director Division of Pulmonary, Critical Care and Sleep Medicine [facility] * Tran Hahn RN - 01/04/2023 [...] Service Progress Note Service Pager (call #1, administrative intern) #[phone] Service Pager (call #2, senior) #[phone] PATIENT IDENTIFICATION: Patient Name: Raghu Rosenthal Age: 77yrs Sex: Male : 1945 MEG: [id number] Admit Date: 12/28/2022 1:45 PM Today's Date: 01/04/2023 Length of Stay: 6 days Admit Diagnosis: NSTEMI (non-ST elevated myocardial infarction) ([facility]) [I21.4] Primary Diagnosis: Acute coronary syndrome ([facility]) Room: [facility] PCP: Wililams Yip MD Primary Insurance: @Deliv@ Secondary Insurance: @Blue Egg@ Interval Events (Previous 24-hrs): Overnight continues to [...] PMH of CAD s/p CABG x2 in [place] 10 years ago, HTN, HLD, porcine AVR who initially presented to [facility] ED with complaints of SOB and midchest [...] distal left main stenosis. Culprit for his ME appears to be an occluded SVG to ramus graft. There is flowin the ramus with proximal 70% stenosis. 2. He is also noted to have severely degenerated bioprosthetic aortic valve, invasive gradients reviewed severely stenotic with mean gradient over 40 mmHg. 3. Decompensated heart failure with preserved cardiac output. We had discontinued his Levophed on arrival to the [facility]. LVEDP 30mmHg. Echo 12/28/22 with EF 41% [...] colectomy. 8. Bilateral hip arthroplasty. -Plan for Ojrjf-cr-qsrqn TAVR -AVOID NITRATES AND BB since patient [...] mg/hr (01/04/23 1000) acetaminophen liquid, 650 mg, [id number] ondansetron, 4 mg, I0PO-ESY Lab Results: Recent Labs 12/29/22 0538 12/31/22 [...] Value Low-High EKG Text INTERFACED DOCUMENTS - [facility] - ABNORMAL ECG - Sinus rhythm normal P axis, V-rate 60-99 Left bundle branch block QRSd>, broad/notched R ST elevation secondary to IVCD Multiple VCG criteria When compared with ECG of 29-Dec-2022 10:18:05, Nonspecific significant change Reading Physician [id number]&Denisse Heart Rate 94 P-R Interval 201 P [place] 77 QRS Duration 140 QT Internal 397 QTcB 498 QRS [place] 7 I-40 Cleveland 36 T-40 Cleveland -37 T Wave [place] [address] [place] 225 Yvrose Thomas MD PGY1 Resident - Internal Medicine [facility] Associated attestation - Jeyson Richard MD - 01/04/2023 4:49 PM EDT ATTENDING CARTRIDGE BELT PUNCHER ATTESTATION: I have seen and examined the [...] Functional Ability Outcome: Ongoing, Progressing * Ursula Rmey RN - 01/03/2023 1:07 PM EDT Emergency Response Team Note Date: 01/03/2023 Patient Name: Raghu Rosenthal Pt EDP#: [id number] Race/Gender: WhiteMale Allergies: Amoxicillin, Atorvastatin, Clavulanic acid, Hydrocodone, Pravachol [pravastatin], and Tetracycline VH ERT - 01/03/23 1301 Onset Original Room # CC512 Type of Call MEWS Reason for Call MEWS Monitors in Use on Arrival Cardio/Resp;Pulse Oximeter Code Status At Onset Signaling Design Engineer Called 1206 Arrival Time 1220 Activated by EHR Primary RN Char Respiratory Therapist Stefany [place] RN Ursula Neuro Assessment on Arrival LOC Awake;Alert Orientation Oriented x 4 Speech Intelligible;Clear Right Hand Open Hearth Helper Moderate Left Hand Open Hearth Helper Moderate RIght Leg Movement Moderate Left [...] Intraosseous Placement No Outcomes Time Event Ended 1245 Transfer No Transfer Family/SO Notified No family present Total Time Spent economic developer (Mins) 25 ERT Initial Vital Signs on [...] Service Progress Note Service Pager (call #1, administrative intern) #[phone] Service Pager (call #2, senior) #[phone] PATIENT IDENTIFICATION: Patient Name: Raghu Rosenthal Age: 77yrs Sex: Male : 1945 MEG: [id number] Admit Date: 12/28/2022 1:45 PM Today's Date: 01/03/2023 Length of Stay: 5 days Admit Diagnosis: NSTEMI (non-ST elevated myocardial infarction) ([facility]) [I21.4] Primary Diagnosis: Acute coronary syndrome ([facility]) Room: [facility] PCP: Williams Yip MD Primary Insurance: @Deliv@ Secondary Insurance: @Blue Egg@ Interval Events (Previous 24-hrs): Overnight continues to [...] PMH of CAD s/p CABG x2 in [place] 10 years ago, HTN, HLD, porcine AVR who initially presented to [facility] ED with complaints of SOB and midchest [...] distal left main stenosis. Culprit for his ME appears to be an occluded SVG to ramus graft. There is flowin the ramus with proximal 70% stenosis. 2. He is also noted to have severely degenerated bioprosthetic aortic valve, invasive gradients reviewed severely stenotic with mean gradient over 40 mmHg. 3. Decompensated heart failure with preserved cardiac output. We had discontinued his Levophed on arrival to the [facility]. LVEDP 30mmHg. Echo 12/28/22 with EF 41% [...] colectomy. 8. Bilateral hip arthroplasty. -Plan for Lvuiz-sw-vpnca TAVR -AVOID NITRATES AND BB since patient [...] Intake/Output Summary (Last 24 hours) at 01/03/2023 0603 Last data filed at 01/03/2023 0400 Gross [...] 1 Capsule, RTDAILY acetaminophen liquid, 650 mg, X6ID-WAM ondansetron, 4 mg, L3QK-XID Lab Results: Recent Labs 12/29/22 0538 12/31/22 [...] Ean Berumen ectronic Signature by: Ean Berumen CTA ABDOMEN [...] Value Low-High EKG Text INTERFACED DOCUMENTS - [facility] - ABNORMAL ECG - Sinus rhythm normal P axis, V-rate 60-99 Left bundle branch block QRSd>, broad/notched R ST elevation secondary to IVCD Multiple VCG criteria When compared with ECG of 29-Dec-2022 10:18:05, Nonspecific significant change Reading Physician 84080&Denisse Heart Rate 94 P-R Interval 201 P [place] 77 QRS Duration 140 QT Internal 397 QTcB 498 QRS [place] 7 I-40 Cleveland 36 T-40 Cleveland -37 T Wave [place] [address] [place] 225 Yvrose Thomas MD PGY1 Resident - Internal Medicine [facility] * Mary Chavez RN - 01/02/2023 [...] Service Progress Note Service Pager (call #1, administrative intern) #[phone] Service Pager (call #2, senior) #[phone] PATIENT IDENTIFICATION: Patient Name: Raghu Rosenthal Age: 77yrs Sex: Male : 1945 MEG: [id number] Admit Date: 12/28/2022 1:45 PM Today's Date: 01/02/2023 Length of Stay: 4 days Admit Diagnosis: NSTEMI (non-ST elevated myocardial infarction) ([facility]) [I21.4] Primary Diagnosis: Acute coronary syndrome ([facility]) Room: [facility] PCP: Williams Yip MD Primary Insurance: @Deliv@ Secondary Insurance: @Blue Egg@ Interval Events (Previous 24-hrs): Overnight had an [...] PMH of CAD s/p CABG x2 in [place] 10 years ago, HTN, HLD, porcine AVR who initially presented to [facility] ED with complaints of SOB and midchest pressure. Transferred to [facility] in cardiogenic shock and admitted to CICU. Now downgraded to the floor for HFrEF exacerbation with severe . Cardiogenic Shock - resolved NSTEMI HFrEF Trop peak 69 and downtrended H/o CABGx2 10 years ago Cath 4/6/23 1. Severe three-vessel disease with patent AVERY to LAD, intermediate stenosis in mid RCA, 60% distal left main stenosis. Culprit for his ME appears to be an occluded SVG to ramus graft. There is flowin the ramus with proximal 70% stenosis. 2. He is also noted to have severely degenerated bioprosthetic aortic valve, invasive gradients reviewed severely stenotic with mean gradient over 40 mmHg. 3. Decompensated heart failure with preserved cardiac output. We had discontinued his Levophed on arrival to the [facility]. LVEDP 30mmHg. Echo 12/28/22 with EF 41% [...] 1 Capsule, RTDAILY acetaminophen liquid, 650 mg, X7KN-JPM ondansetron, 4 mg, J3OJ-RKN Lab Results: Recent Labs 12/29/22 0538 12/31/22 0417 01/01/23357 WBC 5.15 5.16 5.57 HEMOGLOBIN 9.2* 9.8* 9.7* HEMATOCRIT 29.3* 30.0* 30.0* NEUTROPHIL # 3.95 4.08 3.69 NEUTROPHIL % 78 79 67 MCV 97.3 96.2 96.2 PLATELET 80* 105* 157 Recent Labs 01/01/23 0358 01/01/23 0432 01/01/23121701/01/23235101/02/23 0532 SODIUM 133* 134* 133* POTASSIUM 4.6* 4.2 4.2 CHLORIDE 101 100 100 GLUCOSE POCT < > 136* GLUCOSE 127* 135* 136* BUN 73* 77* 78* CREATININE 1.84* 1.94* 1.99* < > = values in this interval not displayed. Recent Labs 01/01/2335701/01/23235101/02/23 0532 MAGNESIUM 2.0 2.0 2.1 Recent Labs 01/01/23 0358 01/01/23235101/02/23 0532 PHOSPHORUS 4.2 4.8* 4.9* Diagnostics (Reviewed): [...] Value Low-High EKG Text INTERFACED DOCUMENTS - [facility] - ABNORMAL ECG - Sinus rhythm normal P axis, V-rate 60-99 Left bundle branch block QRSd>, broad/notched R ST elevation secondary to IVCD Multiple VCG criteria When compared with ECG of 29-Dec-2022 10:18:05, Nonspecific significant change Reading Physician [id number]&Denisse Heart Rate 94 P-R Interval 201 P [place] 77 QRS Duration 140 QT Internal 397 QTcB 498 QRS [place] 7 I-40 Cleveland 36 T-40 Cleveland -37 T Wave [place] [address] [place] 225 Yvrose Thomas MD PGY1 Resident - Internal Medicine [facility] Associated attestation - Jeyson Richard MD - 01/02/2023 3:47 PM EDT ATTENDING CARTRIDGE BELT PUNCHER ATTESTATION: I have seen and examined the [...] Service Progress Note Service Pager (call #1, administrative intern) #[phone] Service Pager (call #2, senior) #[phone] PATIENT IDENTIFICATION: Patient Name: Raghu Rosenthal Age: 77yrs Sex: Male : 1945 MEG: [id number] Admit Date: 12/28/2022 1:45 PM Today's Date: 01/01/2023 Length of Stay: 4 days Admit Diagnosis: NSTEMI (non-ST elevated myocardial infarction) ([facility]) [I21.4] Primary Diagnosis: Acute coronary syndrome ([facility]) Room: [facility] PCP: Williams Yip MD Primary Insurance: @Deliv@ Secondary Insurance: @Blue Egg@ Interval Events (Previous 24-hrs): Overnight patient had [...] PMH of CAD s/p CABG x2 in [place] 10 years ago, HTN, HLD, porcine AVR who initially presented to [facility] ED with complaints of SOB and midchest [...] distal left main stenosis. Culprit for his ME appears to be an occluded SVG to ramus graft. There is flowin the ramus with proximal 70% stenosis. 2. He is also noted to have severely degenerated bioprosthetic aortic valve, invasive gradients reviewed severely stenotic with mean gradient over 40 mmHg. 3. Decompensated heart failure with preserved cardiac output. We had discontinued his Levophed on arrival to the [facility]. LVEDP 30mmHg. Echo 12/28/22 with EF 41% [...] 1 Capsule, RTDAILY acetaminophen liquid, 650 mg, [id number]-CNE ondansetron, 4 mg, G9WH-TRF Lab Results: Recent Labs 12/29/22 0538 12/31/22 [...] interval not displayed. Recent Labs 12/29/22 0538 12/31/22 0417 01/01/23 0358 MAGNESIUM 2.1 2.1 2.0 Recent Labs 12/28/22 [...] Value Low-High EKG Text INTERFACED DOCUMENTS - [facility] - ABNORMAL ECG - Sinus rhythm normal P axis, V-rate 60-99 Left bundle branch block QRSd>, broad/notched R ST elevation secondary to IVCD Multiple VCG criteria When compared with ECG of 29-Dec-2022 10:18:05, Nonspecific significant change Reading Physician [id number]&Oziel&Edgard Heart Rate 94 P-R Interval 201 P [place] 77 QRS Duration 140 QT Internal 397 QTcB 498 QRS [place] 7 I-40 [place] 36 T-40 [place] -37 T Wave [place] [address] [place] 225 Yvrose William, MD PGY1 Resident - Internal Medicine [facility], [facility] Associated attestation - Jeyson Richard MD - 01/01/2023 6:56 PM EDT ATTENDING CARTRIDGE BELT PUNCHER ATTESTATION: I have seen and examined the patient with Dr. Thomas on January 01. I have reviewed the chart and agree with the findings and recommendations as indicated above. Electronically Signed By: Minor Rcihard MD * Mike Rothman RN - 01/01/2023 5:57 AM EDT Pt complaint of chest tightness in AM, carnallite plant operator paged, ekg ordered, trop ordered, nitro tab (see mar), diuretics given, provider present at bedside. * Yvrose Thomas MD - 12/31/2022 1:37 PM EDT Images from the original note were not included. [facility] - Cardiology Teaching Service Progress Note Service Pager (call #1, administrative intern) #[phone] Service Pager (call #2, senior) #[phone] PATIENT IDENTIFICATION: Patient Name: Raghu Rosenthal Age: 77yrs Sex: Male : 1945 MEG: [id number] Admit Date: 12/28/2022 1:45 PM Today's Date: 12/31/2022 Length of Stay: 2 days Admit Diagnosis: NSTEMI (non-ST elevated myocardial infarction) (CMS/HCC) [I21.4] Primary Diagnosis: Acute coronary syndrome ([facility]/HCC) Room: [facility] PCP: Williams Yip MD Primary Insurance: @PRIINSPLAN@ Secondary Insurance: @SECINSPLAN@ Interval Events (Previous 24-hrs): Per RN, no acute events overnight. SUBJECTIVE: Patient seen and examined at the bedside. ASSESSMENT & PLAN: Raghu Rosenthal is a 77yrs old Male with PMH of CAD s/p CABG x2 in [place] 10 years ago, HTN, HLD, porcine AVR who initially presented to [facility] ED with complaints of SOB and midchest pressure. Transferred to [facility] in cardiogenic shock and admitted to CICU. Cardiogenic Shock - resolved NSTEMI HFrEF Trop peakc 69 and downtrended H/o CABGx2 10 years ago Cath 12/28/22 1. Severe three-vessel disease with patent AVERY to LAD, intermediate stenosis in mid RCA, 60% distal left main stenosis. Culprit for his ME appears to be an occluded SVG to ramus graft. There is flowin the ramus with proximal 70% stenosis. 2. He is also noted to have severely degenerated bioprosthetic aortic valve, invasive gradients reviewed severely stenotic with mean gradient over 40 mmHg. 3. Decompensated heart failure with preserved cardiac output. We had discontinued his Levophed on arrival to the [facility]. LVEDP 30mmHg. Echo 12/28/22 with EF 41% [...] 1 Capsule, RTDAILY acetaminophen liquid, 650 mg, O9XQ-OAW Lab Results: Recent Labs 12/28/22141612/29/22 0538 12/31/22416 WBC 9.39 5.15 5.16 HEMOGLOBIN 10.4* 9.2* 9.8* HEMATOCRIT 31.9* 29.3* 30.0* NEUTROPHIL # 7.65 3.95 4.08 NEUTROPHIL % 82 78 79 MCV 96.4 97.3 96.2 PLATELET 119* 80* 105* Recent Labs 12/28/22 14112/29/22 0538 12/29/229 12/30/22 1054 12/31/22416 SODIUM 137 136 134* 129* POTASSIUM 4.5 4.8* 4.6* CHLORIDE 111* 108* 104 102 GLUCOSE POCT 120* GLUCOSE 130* 131* 128* 125* BUN 57* 60* 60* 62* CREATININE 1.64* 1.79* 1.46* 1.77* Recent Labs 12/28/22 14112/29/22 0538 12/31/22416 MAGNESIUM 2.2 2.1 2.1 Recent Labs 12/28/22 1417 12/29/22 0538 PHOSPHORUS 2.9 3.7 Diagnostics (Reviewed): [...] Thomas MD PGY1 Resident - Internal Medicine [facility] Associated attestation - Jeyson Richard MD - 12/31/2022 3:39 PM EDT ATTENDING CARTRIDGE BELT PUNCHER ATTESTATION: I have seen and examined the [...] Transfer Accept Note Service Pager (call #1, administrative intern) #[phone] Service Pager (call #2, senior) #[phone] PATIENT IDENTIFICATION: Patient Name: Raghu Rosenthal Age: 77yrs Sex: Male : 1945 MEG: [id number] Admit Date: 12/28/2022 1:45 PM Today's Date: 12/30/2022 Length of Stay: 2 days Admit Diagnosis: NSTEMI (non-ST elevated myocardial infarction) ([facility]) [I21.4] Primary Diagnosis: Acute coronary syndrome ([facility]) Room: [facility] PCP: Williams Yip MD Primary Insurance: @Deliv@ Secondary Insurance: @SECINSPLAN@ [facility] COURSE: Raghu Rosenthal is a 77yrs old Male with PMH of CAD s/p CABG x2 in [place] 10 years ago, HTN, HLD, porcine AVR who initially presented to [facility] ED with complaints of SOB and midchest pressure. Patient lives in [place] with his , and is visiting [facility] for the next 3 months. He recently had a ziopatch placed by the [facility] on 12/27. Following this procedure he had worsening SOB associated with fatigue, malaise and generalized weakness. EMS was called and he was brought to [facility] ED. On arrival he was noted to be in mild respiratory distress and required bipap. WBC of 19. EKG without NUNO, troponin 1.197. CXR consistent with mild interstitial edema, and a small left pleural effusion. He was given nitro sublingual and morphine, and started on BID lovenox. He was admitted to the ICU at [facility]. He was started on empiric vanc, cefepime for possible infection. He was hypotensive requiring levophed with a differential of cardiogenic vs septic shock. He had a repeat EKG done on 12/28 with a new LBBB. His troponin trended as high as 39. Given concerns for acute coronary syndrome, he was transferred to [facility] for further management. On arrival to [...] and transferred to CIU ASSESSMENT & PLAN: Rgahu Rosenthal is a 77yrs old Male with PMH of CAD s/p CABG x2 in [place] 10 years ago, HTN, HLD, porcine AVR who initially presented to [facility] ED with complaints of SOB and midchest pressure. Transferred to [facility] in cardiogenic shock and admitted to CICU. Cardiogenic Shock - resolved NSTEMI HFrEF Trop peakc 69 and downtrended H/o CABGx2 10 years ago Cath 12/28/22 1. Severe three-vessel disease with patent AVERY to LAD, intermediate stenosis in mid RCA, 60% distal left main stenosis. Culprit for his ME appears to be an occluded SVG to ramus graft. There is flowin the ramus with proximal 70% stenosis. 2. He is also noted to have severely degenerated bioprosthetic aortic valve, invasive gradients reviewed severely stenotic with mean gradient over 40 mmHg. 3. Decompensated heart failure with preserved cardiac output. We had discontinued his Levophed on arrival to the [facility]. LVEDP 30mmHg. Echo 12/28/22 with EF 41% [...] 20 mg, DAILY acetaminophen liquid, 650 mg, O2VB-LIV fentaNYL, 25 mcg, O6ZH-KWJ iodixanoL, 80 mL, ONCE Lab Results: Recent [...] 12/28/22141612/29/22 0538 MAGNESIUM 2.2 2.1 Recent Labs 12/28/22141612/29/22 0538 PHOSPHORUS 2.9 3.7 Diagnostics (Reviewed): CTA [...] Miller Cooper MD PGY-1, Internal Medicine Pager #[phone] Cortext Preferred Associated attestation - Jeyson Richard MD - 12/30/2022 4:01 PM EDT ATTENDING CARTRIDGE BELT PUNCHER ATTESTATION: I have seen and examined the patient with Dr. Cooper on December 30. I have reviewed the chart and agree with the findings and recommendations as indicated above. Electronically Signed By: Minor Richard MD * Minda Osullivan RN - 12/30/2022 12:33 PM EDT Pt arrived to CV2 Pt in NAD, denies pain. Tele intact. 4L NC. Call vasquez in reach, bed low, wheelslocked. Ambu/Code equipment at bedside. Will continue to monitor. * Bozena Rosen ACNP - 12/30/2022 12:26 PM EDT [facility] internal communications manager notified of patient transfer to [facility]. 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 Underwent LHC/CA on [...] a cardiac standpoint [facility] Yobani Engle MD Line Mechanic [employer] preferred. Cardiology on-call pager #[phone] * Elvia Addison RT(R)(CT) - 12/30/2022 9:18 [...] PMH of CAD s/p CABG x2 in [place] 10 years ago, HTN, HLD, porcine AVR who initially presented to [facility] ED with complaints of SOB and midchest pressure. Patient lives in [place] with his , and is visiting [facility] for the next 3 months. He recently had a ziopatch placed by the [facility] on 12/27. Following this procedure he had worsening SOB associated with fatigue, malaise and generalized weakness. EMS was called and he was brought to [facility] ED. On arrival he was noted to be in mild respiratory distress and required bipap. WBC of 19. EKG without NUNO, troponin 1.197. CXR consistent with mild interstitial edema, and a small left pleural effusion. He was given nitro sublingual and morphine, and started on BID lovenox. He was admitted to the ICU at [facility]. He was started on empiric vanc, cefepime for possible infection. He was hypotensive requiring levophed with a differential of cardiogenic vs septic shock. He had a repeat EKG done on 12/28 with a new LBBB. His troponin trended as high as 39. Given concerns for acute coronary syndrome, he was transferred to [facility] for further management. On arrival to CICU, patient is awake and alert. He is on low dose levophed. He is warm to the touchand appears well perfused. POCUS with EF visually estimated at 45%. Breathing comfortably on room air. 12/29 patient with some increased work of breathing this morning, tells me he just doesn't feel right. Will give some gentle diuresis. Active Hospital Problems: Active Hospital Problems Diagnosis *Acute coronary syndrome ([facility]) NSTEMI (non-ST elevated myocardial infarction) ([facility]) Shock ([facility]) Hypertension Hyperlipidemia Coronary artery disease Plan: Patient Active Hospital Problem List: Shock-resolved Assessment: Hypotensive at OSH requiring pressors. Distributive vs cardiogenic. WBC 19. ECHO with EF 41%, severe Plan: remove from problem lis Acute Coronary Syndrome, Coronary Artery Disease Assessment: EKG with new LBBB. Troponin peak 69. History of CABGx2 10 years ago. [facility] with occluded SVG - LM disease, no [...] PRN Inpatient Medications: acetaminophen liquid, 650 mg, C9NT-ROG fentaNYL, 25 mcg, N2QW-AGE Echo : ECHO Result Date: 12/28/2022 Conclusion [...] w/ porcine AVR (10 years ago in [place]), HTN, HLD, obesitywho is admitted to CICU from [facility] w/ NSTEMI and shock. A/P: NSTEMI Shock, distributive vs cardiogenic. Resolved HFrEF HLD Severe Acute hypoxic resp failure -ECHO w/ EF 40% -cath severe 3 vessel disease. Patent AVERY to LAD, intermediate mid RCA stenosis, 60% LM, completely occluded SVG to ramus as ME culprit -trops peaked 68 -cont asa/statin -CXR, [...] MD - 12/29/2022 9:50 AM EDT Brief cans vacuum tester note: 77 year old male with a PMH of CAD s/p 2v CABG (AVERY-LAD, SVG-ramus), s/p porcine AVR (09/02/2013: 25 mm Barnett pericardial tissue valve), HTN, HLD and obesity class III (BMI 41) presented as a transfer from [facility] with NSTEMI and shock. Underwent LHC/CA on [...] TAVR vs redo surgery Yobani Engle MD Line Mechanic [facility]. Cardiology on-call pager #[phone] * Michael Luna, JULIA - 12/29/2022 7:26 AM EDT Reviewed with [...] PMH of CAD s/p CABG x2 in [place] 10 years ago, HTN, HLD, porcine AVR who initially presented to [facility] ED with complaints of SOB and midchest pressure. Patient lives in [place] with his , and is visiting [facility] for the next 3 months. He recently had a ziopatch placed by the [facility] on 12/27. Following this procedure he had worsening SOB associated with fatigue, malaise and generalized weakness. EMS was called and he was brought to [facility] ED. On arrival he was noted to be in mild respiratory distress and required bipap. WBC of 19. EKG without NUNO, troponin 1.197. CXR consistent with mild interstitial edema, and a small left pleural effusion. He was given nitro sublingual and morphine, and started on BID lovenox. He was admitted to the ICU at [facility]. He was started on empiric vanc, cefepime for possible infection. He was hypotensive requiring levophed with a differential of cardiogenic vs septic shock. He had a repeat EKG done on 12/28 with a new LBBB. His troponin trended as high as 39. Given concerns for acute coronary syndrome, he was transferred to [facility] for further management. On arrival to CICU, patient is awake and alert. He is on low dose levophed. He is warm to the touchand appears well perfused. POCUS with EF visually estimated at 45%. Breathing comfortably on room air. Active Hospital Problems: Active Hospital Problems Diagnosis *Acute coronary syndrome ([facility]) NSTEMI (non-ST elevated myocardial infarction) ([facility]) Shock ([facility]) Hypertension Hyperlipidemia Coronary artery disease [...] pain. History of CABGx2 10 years ago. [facility] with occluded SVG - LM disease, no [...] PRN Inpatient Medications: acetaminophen liquid, 650 mg, [id number]-LMV morphine, 2 mg, E5PT-LIP Echo : ECHO Result Date: 12/28/2022 Reason [...] w/ porcine AVR (10 years ago in [place]), HTN, HLD, obesitywho is admitted to CICU from [facility] [place] w/ NSTEMI and shock. A/P: NSTEMI Shock, distributive vs cardiogenic. Resolved HFrEF HLD Severe Acute hypoxic resp failure -ECHO w/ EF 40% -cath severe 3 vessel disease. Patent AVERY to LAD, intermediate mid RCA stenosis, 60% LM, completely occluded SVG to ramus as ME culprit -trops peaked 68 -cont asa/statin -CXR, [...] members. Ko Feliciano DO EM/IM/CC * Karen Sánchez, RN - 12/28/2022 7:45 PM EDT Assumed [...] and MG 47 mmHg. He lives in [place] and is in [facility] for one more month. His has [...] in this encounter H&P Notes * Michael Hernandez, - 01/04/2023 4:24 PM EDT Images from the original note were not included. Cardiac Critical Care Admission Note Michael Hernandez DO Date: 01/04/2023, 4:25 PM ICU Day: 1 Raghu Rosenthal 1945 CC: Severe Code Status: Full Code HPI per initial provider: Raghu Rosenthal is a 77yrs Male with PMH of CAD s/p CABG x2 in [place] 10 years ago, HTN, HLD, porcine AVR who initially presented to [facility] ED with complaints of SOB and midchest pressure. Patient lives in [place] with his , and is visiting [facility] for the next 3 months.He recently had a ziopatch placed by the [facility] on 12/27. Following this procedure he had worsening SOB associated with fatigue, malaise and generalized weakness. EMS was called and he was brought to [facility] ED. On arrival he was noted to be in mild respiratory distress and required bipap. WBC of 19. EKG without NUNO, troponin 1.197. CXR consistent with mild interstitial edema, and a small left pleural effusion. He was given nitro sublingual and morphine, and started on BID lovenox. He was admitted to the ICU at [facility]. He was started on empiric vanc, cefepime for possible infection. He was hypotensive requiring levophed with a differential of cardiogenic vs septic shock. He had a repeat EKG done on 12/28 with a new LBBB. His troponin trended as high as 39. Given concerns for acute coronary syndrome, he was transferred to [facility] for further management. On arrival to CICU, [...] distal left main stenosis. Culprit for his ME appears to be an occluded SVG to ramus graft. There is flowin the ramus with proximal 70% stenosis. 2. He is also noted to have severely degenerated bioprosthetic aortic valve, invasive gradients reviewed severely stenotic with mean gradient over 40 mmHg. 3. Decompensated heart failure with preserved cardiac output. We had discontinued his Levophed on arrival to the [facility]. LVEDP 30mmHg. Right heart catheterization: RA:14 RV:55/10 [...] with cardiogenic shock and reduced EF on [facility] with history of CABG x 2 over [...] daily. fluticasone propionate (FLONASE) 50 mcg/actuation Nasal Ulysses, Suspension by Nasal route. hydroCHLOROthiazide (HYDRODIURIL) 25 [...] 17 Ht 1.753 m Wt 120.4 kg HkY576% BMI 39.17 kg/m?? Temp (24hrs), Av.8 ??C [...] and care were reviewed with Dr. Hernandez ([facility] fellow). I have seen and examined [...] AVR (~10 years ago) who presented to [facility] CICU on 01/04/22 for volume optimization prior [...] excluding teaching and procedures. Maxwell Smith MD Brake Coupler Dinkeydietary director Division of Pulmonary, Critical Care and Sleep Medicine [facility] * Ko Feliciano DO - 12/28/2022 1:46 PM EDT CICU Attending Note- Date of Service 12/28/22 Pt is a 77 y/o male with PMH of CABG x2 w/ porcine AVR (10 years ago in [place]), HTN, HLD, obesitywho is admitted to CICU from [facility] [place] w/ NSTEMI and shock. Currently CP/SOB free [...] Raghu Rosenthal 1945 Referring Hospital: [facility] CC: NSTEMI Code Status: Full Code HPI: Raghu Rosenthal is a 77yrs Male with PMH of CAD s/p CABG x2 in [place] 10 years ago, HTN, HLD, porcine AVR who initially presented to [facility] ED with complaints of SOB and midchest pressure. Patient lives in [place] with his , and is visiting [facility] for the next 3 months. He recently had a ziopatch placed by the [facility] on 12/27. Following this procedure he had worsening SOB associated with fatigue, malaise and generalized weakness. EMS was called and he was brought to [facility] ED. On arrival he was noted to be in mild respiratory distress and required bipap. WBC of 19. EKG without NUNO, troponin 1.197. CXR consistent with mild interstitial edema, and a small left pleural effusion. He was given nitro sublingual and morphine, and started on BID lovenox. He was admitted to the ICU at [facility]. He was started on empiric vanc, cefepime for possible infection. He was hypotensive requiring levophed with a differential of cardiogenic vs septic shock. He had a repeat EKG done on 12/28 with a new LBBB. His troponin trended as high as 39. Given concerns for acute coronary syndrome, he was transferred to [facility] for further management. On arrival to CICU, [...] Problem Link: NSTEMI (non-ST elevated myocardial infarction) ([facility]) Patient Active Hospital Problem List: [...] Lipid panel, TSH, HgbA1C [facility] consulted FILIBERTO on CKD Assessment: baseline appears to be [...] note were not included. Cardiac Electrophysiology Lab [facility] [place] [address] Patient Name: Raghu Rosenthal MR #: [id number] MEG #:[id number] :1945 Age:77yrs Date of procedure: 01/12/2023 Referring MD :Dr. Canales Staff Cardiac Oxygen Therapy Technician: Lilibeth Stanford MD Interventions: Subcutaneous implantation of [...] with optimal recommended medical therapy Implant data: VP DELIVERY-P generator: Location: left prepectoral area Model:Biotronik Edora 8 HFT QP [id number] Serial number [id number] Atrial pacing lead: Location: Right atrial appendage Type: Endocardial IS-1 Steroid eluting bipolar active fixation (extendable-retractable) Biotronik solia s 53 [id number] Right ventricular defibrillator lead: Location: RV septum Type: Endocardial Steroid eluting bipolar active fixation (extendable-retractable) Biotronik solia s 60 [id number] Left ventricular pacing lead: Type: IS-4 Steroid eluting bipolar left ventricular over the wire cardiac vein pacing lead passive fixation Biotronik sentus promri otw qp l 85/49 [id number] LV2-can offset -30 Programming Data Pacing Mode: [...] first guidewire an 7 Fr Safe Sheath ([employer]; Hemostatic tear-away introducer sheath with side infusion [...] amount of pectoral muscle. A 9 Fr Reading Sheath was inserted over an 0.35 Whorley [...] injection. Cineangiographic views were obtained in the NAURUAN/TORRE/AP projection. Target vein selected was a posterolateral branch. It was engaged using the 0.14 whisper EDS wire. A Biotronik xugs-dhp-zxra left ventricular pacing lead was advanced over [...] third guidewire a 7 Fr Safe Sheath ([employer]; Hemostatic tear- away introducer sheath with side [...] set screws were extended using the screw tilt tray driver. The generator was placed in the [...] a hemodynamically stable condition. Lilibeth Stanford MD Brake Coupler Dinkey, Cardiac Electrophysiology [facility] * Jose C Weinberg, RN - 01/12/2023 9:55 AM EDT ULTRASOUND [...] referral, Jose C Weinberg, Vascular Access Team [phone] * Timothy Monroe MD - 01/08/2023 12:20 [...] to LAD and SVG to RI in 2013. Cath showed patent AVERY and occluded SVG. [...] Post dilatation with 23 mm True balloon. GRAPHIC USER INTERFACE DESIGNER right femoral artery with 8.0 x 80 mm balloon for balloon tamponade. [employer] REP: Timothy Monroe MD. INTERVENTIONAL SECURITY OFFICER: Sari Ortiz MD. ATTENDING SURGEON: Lit Hartley [...] and draped into a sterile field. The Haload ultrasound was used to Identify the right and left femoral arteries and right radial artery. Using Seldinger technique and fluoroscopic guidance, the vessels were cannulated with 6-Luxembourger sheaths. The Receeptare ultrasound was used to locate the right and left femoral veins which were cannulated with 5 and 7-Luxembourger sheaths respectively. The sheath was placed using [...] #26 Evolut valve was advanced across the [place] aortic valve under fluoroscopic guidance. 'Cusp overlap [...] the balloon showed normal flow in R RETAIL PERFORMANCE COACH, SFA and profunda with no further extravasation. [...] this referral, Michael Talavera, Vascular Access Team [phone] * Karen Rey RCP - 01/02/2023 11:08 AM EDT PFT's completed. Pre/Post spirometry obtained. Pt did struggle throughout testing and oxygen was used intermittently. Pt had several episodes when needing to catch his breath. Due to pt's shortness of breath and needing several breaks, requiring oxygen, lung volumes were not obtained. MD made aware(administrative intern at #[id number]). A copy of the report was exported to the pt's EHR. Pt was [facility] by RN via wheelchair. Pt came down [...] this referral, Aroldo Gillette, Vascular Access Team [phone] * Carlos Pinedo MD - 12/28/2022 5:29 PM EDT LEFT CARDIAC CATHETERIZATION PROCEDURE NOTE Attending: Carlos Pinedo MD Manager Of Planning: none Pre-procedure Diagnosis: NSTEMI Post-procedure Diagnosis: See [...] is filling retrograde likely culprit for this ME. Proximal ramus has a 70% stenosis, AVERY [...] venous access was obtained with a 7 Luxembourger sheath and then a [place]- Karon catheter was advanced into pulmonary artery [...] distal left main stenosis. Culprit for his ME appears to be an occluded SVG to ramus graft. There is flowin the ramus with proximal 70% stenosis. 2. He is also noted to have severely degenerated bioprosthetic aortic valve, invasive gradients reviewed severely stenotic with mean gradient over 40 mmHg. 3. Decompensated heart failure with preserved cardiac output. We had discontinued his Levophed on arrival to the [facility]. LVEDP 30mmHg. PLAN: Would recommend evaluation by [...] in this encounter Consult Notes * Olga Mejía RN - 01/19/2023 7:48 AM EDT Physical Medicine and Rehabilitation Clearance Note Raghu Rosenthal a 77yrs old Male admitted to [facility] on 12/28/2022 for NSTEMI and valve replacement. Hospital course complicated by respiratory distress. Patient was seen and examined and meets medical and functional criteria for admission to Acute Inpatient Rehabilitation at [facility] today PENDING COVID TEST. GEMS: Mobility Level 3- Standing activities with assist Patient will be admitted to rehab today PENDING COVID TEST once the primary team completes the discharge orders including discharge medication reconciliation and the brief rehab discharge note (Complete the smartphrase .rehabnow in the MD progress note section). A full discharge summary is still required, but awaiting it's completion will NOT delay the admission to rehab. Olga Mejía RN 01/19/2023 7:49 AM Olga Mejía RN, BS, MS Rehab Office Clerk Assistant Victor Manuel preferred Or call [phone] or [phone] * Olga Mejía RN - 01/18/2023 6:30 AM EDT [facility] Inpatient Rehab follow up: -chart reviewed: yo [...] attend IPR here, then return home to [place] afterward -acute team indicating patient medically ready for Rehab -IPR is again at capacity today -we have added Mr. Rosenthal to our wait-list and will notify acute team and admit once we have a bed available, most likely tomorrow Olga Mejía RN, BS, MS Rehab Office Clerk Assistant [phone] Call or Cortexcynthia * Olga Mejía RN - 01/17/2023 7:25 AM EDT [facility] Inpatient Rehab follow up: -chart reviewed: yo [...] at capacity today -we'll follow up tomorrow Olag Mejía RN, BS, MS Rehab Office Clerk Assistant [phone] Call or Cortext * Olga Mejía RN - 01/15/2023 7:42 AM EDT [facility] Inpatient Rehab follow up: -chart reviewed: yo [...] Sunday Olga Mejía RN, BS, MS Rehab Office Clerk Assistant [phone] Call or Cortext * Olga Mejía RN - 01/12/2023 6:42 AM EDT [facility] Inpatient Rehab follow up: -chart reviewed: yo [...] Sunday Olga Mejía RN, BS, MS Rehab Office Clerk Assistant [phone] Call or Cortext * Kendra Whitehead, RDN - 01/11/2023 3:40 PM EDTAssociated Order(s): CONSULT - CONSULTANT INTERN/DIETITIAN Patient: Raghu Rosenthal Today's Date / Time: 01/11/2023 / 3:39 PM [facility] LOS: 14 days Nutrition Monitoring Contact: Clinical RDN Available via [employer] Nutrition Interventions & Recommendations for Provider 1. [...] Weight: 121.7 kg Current Weight: 123.8 kg Mc[place] Body Weight (kg) (Nutrition): 73 Nutrition Focused [...] 146 g/day (2 g/kg IBW) Calorie Needs: 6532-1744 kcal/day (22-25 kcal/kg IBW) Fluid Needs: per MD Nutrition Diagnosis Oral or Nutrition Support Intake; Inadequate oral intake (NI-2.1) related to poor appetite as evidenced by documented po intake.- continues Nutrition Monitoring Nutrition intake/modality, GI function, skin integrity, wt/fluid trends, labs, meds, and plan of care Follow-up Date: 01/16/23 Clinical RDN Name: Kendra Whitehead, , RDN, LDN * Olga Mejía RN - 01/11/2023 8:33 AM EDT [facility] Inpatient Rehab follow up: -chart reviewed: yo [...] tomorrow Olga Mejía RN, BS, MS Rehab Office Clerk Assistant [phone] Call or Cortext * Sri Greer PA-C - 01/11/2023 8:10 AM EDTAssociated Order(s): CONSULT - HEART FAILURE Please see note by Osmany Isidro MD dated 01/10 for Advanced Heart Failure Consult note. Electronically signed by Sri Greer PA-C 01/11/2023 8:10 AM * Osmany Isidro MD - 01/10/2023 11:25 AM EDT Images from the original note were not included. [facility] HEART [place] HEART FAILURE PROGRAM ADVANCED HEART FAILURE CONSULTATION [...] valve stenosis S/P TransCatheter Aortic Valve Replacement ([id number], 26 Medtronic Evolut Pro, via the Left Transfemoral Approach) on 01/08/23, POD#3. S/p AVR with 25 mm Magna in 2013. Bradycardia with LBBB and first degree AV block, prolonged Qtc (likely 2/2 HR) CAD s/p CABG with AVERY to LAD and SVG to RI in 2013. Cath 12/28 showed patent AVERY and occluded [...] pressure on 12/28 as a TF from [facility]. He was found to be in cardiogenic shock, acute decompensated HF (LVEF 40% 12/28, last TTE in 02/2022 with LVEF of 65% and increasing aortic prosthetic valve gradients), NSTEMI 2/2 occluded SVG to ramus graft on cA 12/28, and severe degenerative prosthetic AVR stenosis. He underwent TransCatheter Aortic Valve Replacement ([id number]-Qniku, 26 Medtronic EvolutPro, via the Left Transfemoral [...] 01/08/2023 Performed by Tania Hartley MD at [facility], AORTIC VALVE, TRANSCATHETER, FEMORAL APPROACH (MEDTRONIC 26 ELSA); Intraoperative Echocardiogram Left 01/08/2023 Performed by Tania Hartley MD at [facility] [place] - CORONARY ARTERY BYPASS GRAFT [place] [...] is filling retrograde likely culprit for this ME. Proximal ramus has a 70% stenosis, AVERY [...] distal left main stenosis. Culprit for his ME appears to be an occluded SVG to ramus graft. There is flowin the ramus with proximal 70% stenosis. 2. He is also noted to have severely degenerated bioprosthetic aortic valve, invasive gradients reviewed severely stenotic with mean gradient over 40 mmHg. 3. Decompensated heart failure with preserved cardiac output. We had discontinued his Levophed on arrival to the [facility]. LVEDP 30mmHg. ECHOCARDIOGRAPHY : 12/28/2022 The study [...] Osmany Isidro MD, A Cardiovascular Sciences Fellow [facility] at [facility] Cortext preferred After-hours pager: [phone] cc: Anam Winchester MD Associated attestation - Ame Hardy MD - 01/10/2023 10:33 PM EDT Images from the original note were not included. [facility] Heart Failure Team Date: 01/10/23 Raghu Rosenthal was discussed with Dr. Isidro. I facilitated the development of the plan of care in collaboration with the heart failure team. Ame Hardy M.D., [facility] Advanced Heart Failure Meat Stocker Contact via [facility] [facility] please * Yann Fields, DO - 01/09/2023 10:51 AM EDTAssociated Order(s): [...] as he has functional needs. Patientis from [place] and has questions about being in [facility] as the place they are renting, will at end of month prior to returning home. Patient would like to consider IPR and discuss with spouse. Medically, patient is not ready as he is currently on IV Bumex drip, epinephrine drip, increasing creatinine and will need to see downtrending of oxygen requirements. IPR will follow-up on 01/11. Thank you for this consult. Admission to [facility] requires medical necessity, 2 therapy need, ability to tolerate 3 hours of therapya day, and a firm disposition plan. Please be aware that admission is dependent on bed availabilityand insurance authorization. Rehab admission process for covid testing effective 07/31/22: [facility] patients will need to have a COVID PCR test if they have not been tested within the previous 10 days of the admission. ?? If COVID PCR is negative, the patient is admitted without special room accommodations. ?? If COVID PCR is positive and patient is medically stable for an [facility] admission, the patient is admitted with special [...] transfer training 01/08/23 TransCatheter Aortic Valve Replacement ([id number]-[id number], 26 Medtronic Evolut Pro, via the Left [...] history of CAD s/p CABG x2 in [place] 10 years ago, HTN, HLD, porcine AVR who initially presented to [facility] ED with complaints of SOB and midchest pressure. Patient lives in [place] with his , and is visiting [facility] for the next 3 months.He recently had a ziopatch placed by the [facility] on 12/27. Following this procedure he had worsening SOB associated with fatigue, malaise and generalized weakness. EMS was called and he was brought to [facility] ED. On arrival he was noted to be in mild respiratory distress and required bipap. WBC of 19. EKG without NUNO, troponin 1.197. CXR consistent with mild interstitial edema, and a small left pleural effusion. He was given nitro sublingual and morphine, and started on BID lovenox. He was admitted to the ICU at [facility]. He was started on empiric vanc, cefepime for possible infection. He was hypotensive requiring levophed with a differential of cardiogenic vs septic shock. He had a repeat EKG done on 12/28 with a new LBBB. His troponin trended as high as 39. Given concerns for acute coronary syndrome, he was transferred to [facility] for further management. On arrival to CICU, patient is awake and alert. He is on low dose levophed. He is warm to the touchand appears well perfused. POCUS with EF visually estimated at 45%. He underwent a R/LHC 12/28/2022 showin. Severe three-vessel disease with patent AVERY to LAD, intermediate stenosis in mid RCA, 60% distal left main stenosis. Culprit for his ME appears to be an occluded SVG to ramus graft. There is flowin the ramus with proximal 70% stenosis. 2. He is also noted to have severely degenerated bioprosthetic aortic valve, invasive gradients reviewed severely stenotic with mean gradient over 40 mmHg. 3. Decompensated heart failure with preserved cardiac output. We had discontinued his Levophed on arrival to the [facility]. LVEDP 30mmHg Patient was treated for cardiogenic [...] complaints. Reports he and his are from [place] and were scheduleto return back at end of the month as they were down in [place] to get away from cold weather for [...] 0.019 mcg/kg/min (01/09/23 1040) albuterol, 2.5 mg, T6LN-ORA calcium gluconate, 1 g, PRN magnesium sulfate adult replacement, 2 g, PRN ondansetron, 4 mg, R3ZV-VON Past Surgical History: Procedure Laterality Date Left Main Stent Placement Left 01/08/2023 Performed by Tania Hartley MD [place] [facility] [place] [facility] REPLACEMENT, AORTIC VALVE, TRANSCATHETER, FEMORAL APPROACH (MEDTRONIC 26 ELSA); Intraoperative Echocardiogram Left 01/08/2023 Performed by Tania Hartley MD at [facility] [place] [facility] T[place] - CORONARY ARTERY BYPASS GRAFT TULIO [...] of note for assessment and recommendations. Yann Fields DO 01/09/2023 For new consults, pager: [phone] For follow up on consults, please call: [phone] Associated attestation - Christine Mclean MD - [...] of care. Thank you for the consult, Renata forward note to Dr. Hartley, please find [...] and if patient would like therapies at [facility] vs closer to home. -Recommend Physical Therapy: for balance, functional mobility, gait training, ROM, transfer training, improving strength, improving endurance, wheelchair mobility if indicated and education on assistive devices. -Recommend Occupational Therapy:for ADLs, iADLs, adaptive equipment training, transfer training, safety awareness, and functional mobility. Christine Mclean MD Department of Physical Medicine and Rehabilitation * Olga Mejía RN - 01/09/2023 10:47 AM EDT [facility] consult received. Chart reviewed. 77 yo male who presented on 12/28/22 with NSTEMI and valve replacement 01/08/23. PT 01/05/23: Tolerating all OOB activities with min assist; ambulated 15 ft; therapies recommending IPR. Pt will be seen at bedside with a full PM&R consult to follow. Thank you for this referral. Olga Mejía RN, BS, MS Rehab Office Clerk Assistant [phone] Call or Cortext * Carlos Vieyra PA-C - 01/03/2023 5:02 PM EDTAssociated Order(s): CONSULT - UROLOGY - [facility] Patient Name: Raghu Rosenthal Address: [address] [place] [id number] Patient (home) Date of : 1945 Today's Date: 01/03/2023 [facility] CONSULT Chief Complaint: No chief complaint on file. Raghu Rosenthal is a 77yrs old, Male with PMH of CAD s/p CABG x2 in [place] 10 years ago, HTN, HLD, porcine AVR who initially presented to [facility] ED with complaints of SOB and midchest [...] mL solution 650 mg 650 mg Oral E8EO-EBH Fish Conti MD 650 mg at 01/02/232044 albuterol (PROVENTIL) 2.5 mg /3 mL (0.083 [...] QHS Miller Cooper MD 100 mg at 01/02/23 2337 [Held by Provider] hydroCHLOROthiazide (HYDRODIURIL) tablet 25 mg 25 mg Oral DAILY Miller Cooper MD lidocaine (LIDODERM) 5 % patch 1 Patch 1 Patch Transdermal DAILY Miller Cooper MD 1 Patch at 01/03/23 105 [Held by Provider] losartan (COZAAR) tablet 100 mg 100 mg Oral DAILY Miller Cooper MD melatonin tablet Tab 5 mg 5 mg Oral QHS Ko Pimentel DO 5 mg at 01/02/232045 ondansetron (ZOFRAN) injection 4 mg 4 mg Intravenous E8JO-SOG Yvrose Thomas MD 4 mg at 01/02/232044 [...] Value Low-High EKG Text INTERFACED DOCUMENTS - [facility] - ABNORMAL ECG - Sinus rhythm normal P axis, V-rate 50-99 Left bundle branch block QRSd>120, broad/notched R ST elevation secondary to IVCD Multiple VCG criteria Reading Physician [id number]&Anam&Eun&W Heart Rate 96 P-R Interval 197 P [place] 97 QRS Duration 142 QT Internal 394 QTcB 499 QRS Cleveland 14 I-40 Cleveland 51 T-40 Cleveland -[address] T [address] [place] 221 Radiology (past 36 H): Results for [...] history, never saw a urologist, lives in [place] - Bruno catheter was not fully inserted, [...] Discussed with resident Physician at bedside. D/W PATRICK Sanford-C 01/03/2023 * Sparkle Georges, WANT AD SUPERVISOR-BC - 01/02/2023 8:41 AM EDT Images from the original note were not included. Cardiothoracic Surgery TAVR Consult Patient name: Raghu Rosenthal : 1945 Age: 77yrs Admission Date: 12/28/2022 Length of Stay: 5 MR#: [id number] [facility]#: [id number] Primary Care Provider: Michael Mckenzie Md [facility] Referring Meat Stocker: Williams Yip MD Reason for Consult: severe [...] Earlier last month had been admitted to [facility] for TIA 12/06/2022; wearing ZioXT placed by [place] in [place] after TIA symptoms (placed on patient 12/27/2022). [...] is filling retrograde likely culprit for this ME. Proximal ramus has a 70% stenosis, AVERY [...] 12/27/2022 fluticasone propionate (FLONASE) 50 mcg/actuation Nasal Ulysses, Suspension by Nasal route. hydroCHLOROthiazide (HYDRODIURIL) 25 [...] occluded LCx SVG. Electronically Signed By: Sparkle LE 01/02/2023 Available via cortext only * Osmany Isidro MD - 12/28/2022 2:58 PM EDT Images from the original note were not included. [facility] CICU Consultation Note Osmany Isidro MD Line Mechanic Date: 12/28/22 Time: 3:01 PM Attending Physician: Ko Feliciano DO Date of Admission: 12/28/2022 1:45 PM Reason for Consult: NSTEMI Assessment: A 77 M with CABG (2 vessel, unknown grafts), ? s/p porcine AVR (10 years ago in [place]), HTN, HLD, obesity class III (BMI 41), presented from [facility] with NSTEMI and shock. NSTEMI: Hx of [...] will be elevated) - Obtain MR from [facility] - Work up for AGMA per ICU team *Recommendations are staffed w/ attending, Dr. Ludwig Brief HPI: A 77 M with CABG (2 vessel, unknown grafts), ? s/p porcine AVR (10 years ago in [place]), HTN, HLD, obesity class III (BMI 41), presented from [facility] with NSTEMI and shock. Patient p/w acute [...] chest pain free. MAP 84 on 4 of Levo. On 2L NC. Hemodynamics: Pulse: 82 BP: [...] Facility-Administered Medications: [START ON 12/29/2022] aspirin ([facility]ILDR[employer] [place] ASPIRIN) chewable tablet 81 mg, 81 mg, [...] requested labs within last 365 days Osmany Isidro MD, A Cardiovascular Sciences Fellow [facility] [employer] [facility] Cortex preferred After-hours pager: [phone] Associated attestation - Edgard Ludwig DO - 12/30/2022 12:34 PM EDT I saw and examined the patient with Dr. Isidro on 12/28/2022. The case was discussed with the fellow and I agree with the assessment and plan as outlined above. Electronically signed Edgard Ludwig D.O., F.A.C.C. Clinical Professor Department of Cardiovascular Sciences [facility] at [facility] documented in this encounter OR Notes * Procedure - Operative - Mary Valentin RN - 01/08/2023 12:41 PM EDT Cumulative Air Kerma: 3109 Dose Area Product: 55895.43 DAP Units: uGym2 Fluoro Time: 42.1 Contrast [...] PROCEDURE PERFORMED: 1. TransCatheter Aortic Valve Replacement, Eqrzh-fg-Tvkog, 26 Medtronic EvolutPro, via the Left Transfemoral Approach 2. Left Main Coronary Artery Protection 3. Post Deployment BAV, 23mm Z-Med Balloon 4. IVUS of Left Main SURGEON: Saundra Hartley MD [employer] REP: Timothy Monroe MD ANESTHESIA: General PREOPERATIVE EJECTION [...] draped into a sterile field. Using the Zonare ultrasound both femoral arteries were located and cannulated with 6-Luxembourger sheaths. This was under fluoroscopic guidance. The right femoral vein was also located and entered using the Zonare ultrasound and then a 5-Luxembourger sheath was placed using fluoroscopic guidance. The temporary right ventricular pacing wire was placed through the right femoral venous sheath and pacing was confirmed in the right ventricle. The wire was then secured. A 5-Luxembourger pigtail catheter was placed in the right [...] via the left femoral artery sheath. The 16-Luxembourger dry seal sheath was placed over a wire under fluoroscopic guidance in the right femoral artery. Heparin was given to obtain an ACT greater than 250 seconds. An JR4 catheter was then placed to the [place] aortic valve and the aortic valve was crossed with a soft tipped wire. Exchanges were made and the confida wire was then passed into the apex of the heart. Fluoroscopy was used to confirm correct positioning of the valve on the delivery system. The 16-Luxembourger sheath was removed as the Medtronic Evolut delivery system was then passed over the working wire. Under fluoroscopy, the valve was observed passing up the aorta and along the arch. The valve was then placed and positioned across the [place] aortic valve. Pacing was initiated. The valve [...] in this encounter Miscellaneous Notes * [facility] - Mary Chavez RN - 01/19/2023 1:35 PM EDT Images from the original note were not included. [address] Torsemide Oral Tablet Brands: Demadex Uses This [...] about all medicines taken. Include prescription and xnsc-idn-hhsrxqv medicines, vitamins, and herbal medicines. Speak with [...] you have any questions about this medicine. [email or web address] IMPORTANT NOTE: This document tells you briefly how to take your medicine, but it does not tell youall there is to know about it. Your doctor or pharmacist may give you other documents about your medicine. Please talk to them if you have any questions. Always follow their advice. There is a more complete description of this medicine available in Montenegrin. Scan this code on your smartphone or tablet or use the web address below. You can also ask your pharmacist for a printout. If you have any questions, please ask your pharmacist. The display and use of this drug information is subject to Terms of Use. Copyright(c) 2022 [employer]. ?? [employer]. All rights reserved. This information is not intended as a substitute for professional medical care. Always follow your healthcare professional's instructions. * [facility] - Mary Chavez RN - 01/19/2023 1:35 PM EDT Images from the original note were not included. 96282-677 Vitamin B1 (thiamine) Oral Tablet Uses For vitamin replacement. Instructions This medicine may be taken with or without food. Store at room temperature away from heat, light, and moisture. Do not keep in the bathroom. Tell your doctor and pharmacist about all your medicines. Include prescription and deiy-oof-rvcgjrczyywimxbf, vitamins, and herbal medicines. Speak with your [...] you have any questions about this medicine. [email or web address] IMPORTANT NOTE: This document tells you briefly how to take your medicine, but it does not tell youall there is to know about it. Your doctor or pharmacist may give you other documents about your medicine. Please talk to them if you have any questions. Always follow their advice. There is a more complete description of this medicine available in Montenegrin. Scan this code on your smartphone or tablet or use the web address below. You can also ask your pharmacist for a printout. If you have any questions, please ask your pharmacist. The display and use of this drug information is subject to Terms of Use. Copyright(c) 2022 [employer]. ?? 9294-6509 [employer]. All rights reserved. This information is not intended as a substitute for professional medical care. Always follow your healthcare professional's instructions. * [facility] - Mary Chavez RN - 01/19/2023 1:35 PM EDT Images from the original note were not included. [address] Polyethylene Glycol 3350 Powder For Oral Solution [...] away from heat and light. Frequent or snf use of laxatives can cause your bowels to depend on them. Do not use laxatives for more than one week unless directed by your doctor. To reduce constipation, eat high fiber foods, drink plenty of water and exercise. Tell your doctor and pharmacist about all your medicines. Include prescription and rgqq-ulq-louoiykkevrxgucn, vitamins, and herbal medicines. Tell your doctor [...] you have any questions about this medicine. [email or web address] IMPORTANT NOTE: This document tells you briefly how to take your medicine, but it does not tell youall there is to know about it. Your doctor or pharmacist may give you other documents about your medicine. Please talk to them if you have any questions. Always follow their advice. There is a more complete description of this medicine available in Montenegrin. Scan this code on your smartphone or tablet or use the web address below. You can also ask your pharmacist for a printout. If you have any questions, please ask your pharmacist. The display and use of this drug information is subject to Terms of Use. Copyright(c) 2022 [employer]. ?? 5604-0866 [employer]. All rights reserved. This information is not intended as a substitute for professional medical care. Always follow your healthcare professional's instructions. * [facility] Mary Chavez [facility] - 01/19/2023 1:35 PM EDT Images from the original note were not included. 2964-9451 Oxycodone Oral Tablet 5 mg Uses For [...] about all medicines taken. Include prescription and blfm-udo-mkduijz medicines, vitamins, and herbal medicines. Speak with [...] you have any questions about this medicine. [email or web address] IMPORTANT NOTE: This document tells you briefly how to take your medicine, but it does not tell youall there is to know about it. Your doctor or pharmacist may give you other documents about your medicine. Please talk to them if you have any questions. Always follow their advice. There is a more complete description of this medicine available in Montenegrin. Scan this code on your smartphone or tablet or use the web address below. You can also ask your pharmacist for a printout. If you have any questions, please ask your pharmacist. The display and use of this drug information is subject to Terms of Use. Copyright(c) 2022 [employer]. ?? [employer]. All rights reserved. This information is not intended as a substitute for professional medical care. Always follow your healthcare professional's instructions. * [facility] - Mary Chavez RN - 01/19/2023 1:35 PM EDT Images from the original note were not included. [address] Metoprolol Extended Release Oral Tablet Brands: Toprol [...] about all medicines taken. Include prescription and wsyk-ezb-oadzuig medicines, vitamins, and herbal medicines. Speak with [...] you have any questions about this medicine. [email or web address]/[email or web address] IMPORTANT NOTE: This document tells you briefly how to take your medicine, but it does not tell youall there is to know about it. Your doctor or pharmacist may give you other documents about your medicine. Please talk to them if you have any questions. Always follow their advice. There is a more complete description of this medicine available in Montenegrin. Scan this code on your smartphone or tablet or use the web address below. You can also ask your pharmacist for a printout. If you have any questions, please ask your pharmacist. The display and use of this drug information is subject to Terms of Use. Copyright(c) 2022 [employer]. ?? [employer]. All rights reserved. This information is not intended as a substitute for professional medical care. Always follow your healthcare professional's instructions. * [facility] - Mary Chavez RN - 01/19/2023 1:35 PM EDT Images from the original note were not included. [address] Melatonin Oral Tablet Uses No information is [...] about all your medicines. Include prescription and mweh-irj-wlonxieswvliskcn, vitamins, and herbal medicines. Cautions Tell your [...] you have any questions about this medicine. [email or web address]/[email or web address] IMPORTANT NOTE: This document tells you briefly how to take your medicine, but it does not tell youall there is to know about it. Your doctor or pharmacist may give you other documents about your medicine. Please talk to them if you have any questions. Always follow their advice. There is a more complete description of this medicine available in Montenegrin. Scan this code on your smartphone or tablet or use the web address below. You can also ask your pharmacist for a printout. If you have any questions, please ask your pharmacist. The display and use of this drug information is subject to Terms of Use. Copyright(c) 2022 [employer]. ?? [employer]. All rights reserved. This information is not intended as a substitute for professional medical care. Always follow your healthcare professional's instructions. * [facility] - Mary Chavez RN - 01/19/2023 1:35 PM EDT Images from the original note were not included. [address] Gabapentin Oral Capsule Brands: Neurontin Uses This [...] about all your medicines. Include prescription and ebmx-ufh-tpalbhmjplnauawp, vitamins, and herbal medicines. Do not suddenly [...] you have any questions about this medicine. [email or web address]/fdbpem/8217 IMPORTANT NOTE: This document tells you briefly how to take your medicine, but it does not tell youall there is to know about it. Your doctor or pharmacist may give you other documents about your medicine. Please talk to them if you have any questions. Always follow their advice. There is a more complete description of this medicine available in Montenegrin. Scan this code on your smartphone or tablet or use the web address below. You can also ask your pharmacist for a printout. If you have any questions, please ask your pharmacist. The display and use of this drug information is subject to Terms of Use. Copyright(c) 2022 [employer]. ?? [employer]. All rights reserved. This information is not intended as a substitute for professional medical care. Always follow your healthcare professional's instructions. * [facility] - Mary Chavez RN - 01/19/2023 1:35 PM EDT Images from the original note were not included. 91608-112 Folic Acid Oral Tablet Brands: Folacin Uses [...] about all your medicines. Include prescription and itjz-vos-htkcbatercmefowm, vitamins, and herbal medicines. Speak with your [...] you have any questions about this medicine. [email or web address]/fdbpem/117 IMPORTANT NOTE: This document tells you briefly how to take your medicine, but it does not tell youall there is to know about it. Your doctor or pharmacist may give you other documents about your medicine. Please talk to them if you have any questions. Always follow their advice. There is a more complete description of this medicine available in Montenegrin. Scan this code on your smartphone or tablet or use the web address below. You can also ask your pharmacist for a printout. If you have any questions, please ask your pharmacist. The display and use of this drug information is subject to Terms of Use. Copyright(c) 2022 [employer]. ?? [employer]. All rights reserved. This information is not intended as a substitute for professional medical care. Always follow your healthcare professional's instructions. * [facility] - Mary Chavez RN - 01/19/2023 1:34 PM EDT Images from the original note were not included. 79342-24 Ferrous Sulfate Delayed Release Oral Tablet Uses [...] about all your medicines. Include prescription and vtbo-msj-xvuftkksfnkudnam, vitamins, and herbal medicines. Speak with your [...] you have any questions about this medicine. [email or web address]/fdbpem/38 IMPORTANT NOTE: This document tells you briefly how to take your medicine, but it does not tell youall there is to know about it. Your doctor or pharmacist may give you other documents about your medicine. Please talk to them if you have any questions. Always follow their advice. There is a more complete description of this medicine available in Montenegrin. Scan this code on your smartphone or tablet or use the web address below. You can also ask your pharmacist for a printout. If you have any questions, please ask your pharmacist. The display and use of this drug information is subject to Terms of Use. Copyright(c) 2022 [employer]. ?? 7913-8550 The [employer]. All rights reserved. This information is not intended as a substitute for professional medical care. Always follow your healthcare professional's instructions. * [facility], Mary Lua, RN - 01/19/2023 1:34 PM EDT Images from the original note were not included. [address] Clopidogrel Oral Tablet Brands: Plavix Uses This [...] about all medicines taken. Include prescription and oysz-ofr-xtegmgc medicines, vitamins, and herbal medicines. Speak with [...] you have any questions about this medicine. [email or web address].[email or web address]/[email or web address]/fdbpem/7084 IMPORTANT NOTE: This document tells you briefly how to take your medicine, but it does not tell youall there is to know about it. Your doctor or pharmacist may give you other documents about your medicine. Please talk to them if you have any questions. Always follow their advice. There is a more complete description of this medicine available in Montenegrin. Scan this code on your smartphone or tablet or use the web address below. You can also ask your pharmacist for a printout. If you have any questions, please ask your pharmacist. The display and use of this drug information is subject to Terms of Use. Copyright(c) 2022 [employer]. ?? [employer]. All rights reserved. This information is not intended as a substitute for professional medical care. Always follow your healthcare professional's instructions. * [facility] - Mary Chavez RN - 01/19/2023 1:33 PM EDT Images from the original note were not included. [address] Clopidogrel Oral Tablet Brands: Plavix Uses This [...] about all medicines taken. Include prescription and ugkz-boh-bewugsb medicines, vitamins, and herbal medicines. Speak with [...] you have any questions about this medicine. [email or web address]://[email or web address].[email or web address]/[email or web address]/fdbpem/7084 IMPORTANT NOTE: This document tells you briefly how to take your medicine, but it does not tell youall there is to know about it. Your doctor or pharmacist may give you other documents about your medicine. Please talk to them if you have any questions. Always follow their advice. There is a more complete description of this medicine available in Montenegrin. Scan this code on your smartphone or tablet or use the web address below. You can also ask your pharmacist for a printout. If you have any questions, please ask your pharmacist. The display and use of this drug information is subject to Terms of Use. Copyright(c) 2022 [employer]. ?? [employer]. All rights reserved. This information is not intended as a substitute for professional medical care. Always follow your healthcare professional's instructions. * [facility] - Mary Chavez RN - 01/19/2023 1:33 PM EDT Images from the original note were not included. [id number] Clopidogrel Oral Tablet Brands: Plavix Uses This [...] about all medicines taken. Include prescription and [id number] medicines, vitamins, and herbal medicines. Speak with [...] you have any questions about this medicine. [email or web address] IMPORTANT NOTE: This document tells you briefly how to take your medicine, but it does not tell youall there is to know about it. Your doctor or pharmacist may give you other documents about your medicine. Please talk to them if you have any questions. Always follow their advice. There is a more complete description of this medicine available in Montenegrin. Scan this code on your smartphone or tablet or use the web address below. You can also ask your pharmacist for a printout. If you have any questions, please ask your pharmacist. The display and use of this drug information is subject to Terms of Use. Copyright(c) 2022 [employer]. ?? [employer]. All rights reserved. This information is not intended as a substitute for professional medical care. Always follow your healthcare professional's instructions. * Hospital Course - Zara CapellanRUMA - 01/01/2023 6:25 AM EDT PROCEDURE: Procedure(s): [...] on valentín, K not replaced Date 01/07/23 07 - 01/08/23 0659 01/08/23 07 - 01/09/23 0659 Shift [id number] [id number] [id number] 24 Hour Total [id number] [id number] 3951-4678 24 Hour Total INTAKE P.O. 400 200 [...] evening of POD 1 CABG if plts >39642; POD 1 TAVR or OPCABG) 01/08/2023: PlateletCount [...] Tablet fluticasone propionate (FLONASE) 50 mcg/actuation Nasal [place], Suspension hydroCHLOROthiazide (HYDRODIURIL) 25 mg Oral Tablet [...] - 100 mg/dL 01/19/2023 11:57 AM EDT [facility] POC TEST Blood BLOOD / Unknown 01/19/2023 1 1:56 AM EDT 01/19/2023 11:57 AM EDT Abdoulaye Canales MD LAB POC UNSOLICIT ED ORDERABLES Performing Organization Address City/State/[facility] Co de Phone Number [facility] POC TEST [address] [place] [address] * COVID-19 STAT (01/19/2023 8:09 AM EDT) SARS-Coronavir us-2 PCR Negative Negative 01/19/2023 8:49 AM EDT [facility] ([facility]CREDITED [facility] [employer] [facility] [employer] [facility]) Swab NASOPHARYNGEAL STRUCTURE / Unknown Non-blood Collection / Unknown 01/19/2023 8:09 AM EDT 01/19/2023 8:12 AM EDT Narrative [facility] ([facility]CR[facility] [employer] [facility] [employer] [facility]) - 01/19/2023 8:49 AM EDT Negative [...] LAB MICROBIOLOGY O RDERABLES Performing Organization Address City/[facility]/ZIP Co de Phone Number [facility] ([facility]CR[facility]ITED [facility] [employer] [facility] [employer] [facility]) [address] [place] [address] * PHOSPHORUS (01/19/2023 4:37 AM EDT) Only the most recent of28 resultswithin the time period is included. Phosphorus 2.6 2.3 - 4.7 mg/dL 01/19/2023 5:48 AM EDT [facility] (ACCREDITED [facility] [employer] [facility] [facility]) Blood BLOOD / Unknown Venipuncture / Unknown 01/19/2023 4:37 AM EDT 01/19/2023 5:09 AM EDT Williams Murray DO LAB BLOOD ORDERABLES Performing Organization Address [facility] Co de Phone Number [facility] ([facility]CR[facility]ITED [facility] [employer] [facility] [employer] [facility]) [address] [place] [address] * MAGNESIUM (01/19/2023 4:37 AM EDT) Only the most recent of36 resultswithin the time period is included. Magnesium 1.7 1.6 - 2.6 mg/dL 01/19/2023 5:48 AM EDT [facility] (ACCREDITED BY [facility] [employer] [facility] [employer] [facility]) Blood BLOOD / Unknown Venipuncture / Unknown 01/19/2023 4:37 AM EDT 01/19/2023 5:09 AM EDT Williams Murray DO LAB BLOOD ORDERABLES Performing Organization Address [facility]/ZIP Co de Phone Number [facility] ([facility]CREDITED [facility] [employer] [facility]) [address] [place] [address] * (ABNORMAL) BASIC METABOLIC PANEL (01/19/2023 4:37 AM EDT) Only the most recent of39 resultswithin the time period is included. BUN 76(H) 8 - 26 mg/dL 01/19/2023 5:48 AM T [facility] ([facility]CREDITED [facility] [employer] [facility]) Sodium 133(L) 136 - 145 mEq/L 01/19/2023 5:48 AM [facility] (ACCREDITED BY [facility] [employer] [facility] [employer] [facility]) Potassium 3.2(L) 3.5 - 5.1 mEq/L 01/19/2023 5:48 AM T [facility] (ACCREDITED BY [facility] [employer] [facility]) Chloride 94(L) 98 - 107 mEq/L 01/19/2023 5:48 AM [facility] (ACCREDITED BY [facility] [employer] [facility]) CO2 26 23 - 31 mEq/L 01/19/2023 5:48 AM [facility] ([facility]CR[facility]ITED BY [facility] [facility]) Anion Gap 13(H) 4 - 12 mEq/L 01/19/2023 5:48 AM [facility] ([facility]CR[facility]ITED [facility]) Glucose 96 70 - 105 mg/dL 01/19/2023 5:48 AM [facility] (ACCREDITED BY [facility]) Creatinine 1.45(H) 0.72 - 1.25 mg/dL 01/19/2023 5:48 AM [facility] ([facility]CREDITED [facility]) Glomerular Filtration Rate 50(L) >=59 mL/Min/1.7 3 m2 01/19/2023 5:48 AM [facility] (ACCREDITED [facility]) Calcium 9.0 8.4 - 10.2 mg/dL 01/19/2023 5:48 AM [facility] ([facility]CREDITED [facility]) Osmo (Calc'd) 301 mOsm/kg 01/19/2023 5:48 AM [facility] ([facility]CREDITED [facility] [facility]) Bun:Creat Ratio 52.41 5:48 AM [facility] (ACCREDITED BY [facility] [facility]) Blood BLOOD / Unknown Venipuncture / Unknown 01/19/2023 4:37 AM EDT 01/19/2023 5:09 AM EDT Williams Murray DO LAB BLOOD ORDERABLES [facility] (ACCREDITED [facility] [employer] [facility]) [address] [place] [address] * (ABNORMAL) CBC WITH DIFFERENTIAL (01/17/2023 3:52 AM EDT) Only the most recent of14 resultswithin the time period is included. WBC (White Blood Cell Count) 9.26 4.50 - 11.00 k/uL 01/17/2023 4:28 AM T [facility] (ACCREDITED [facility] [employer] [facility]) RBC (Red Blood Cell Count) 3.10(L) 4.40 - 5.90 M/uL 01/17/2023 4:28 AM T [facility] (ACCR[facility]ITED [facility] [employer] [facility]) Hemoglobin 9.1(L) 13.0 - 18.0 g/dL 01/17/2023 4:28 AM [facility] (ACCREDITED BY [facility] [facility]) Hematocrit 30.0(L) 40.0 - 52.0 % 01/17/2023 4:28 AM [facility] (ACCR[facility]ITED [facility]) MCV (Mean Corpuscular Volume) 96.8 80.0 - 100.0 fL 01/17/2023 4:28 AM [facility] (ACCREDITED BY [facility] [facility]) MCH (Mean Corpuscular Hemoglobin) 29.4 26.0 - 34.0 pg 01/17/2023 4:28 AM [facility] (ACCREDITED BY [facility] [facility]) MCHC (Mean Corpuscular Hemoglobin Concentration) 30.3(L) 32.0 - 36.0 g/dL 01/17/2023 4:28 AM [facility] (ACCREDITED BY [facility] [facility]) RDW (Red Cell Distribution Width) 17.3(H) 11.5 - 14.5 % 01/17/2023 4:28 AM [facility] (ACCREDITED BY [facility] [facility]) Platelet Count 116(L) 150 - 440 k/uL 01/17/2023 4:28 AM [facility] (ACCR[facility]ITED [facility] [facility]) MPV (Mean Platelet Volume) 10.1 7.4 - 10.6 fL 01/17/2023 4:28 AM [facility] (ACCR[facility]ITED [facility] [facility]) Nucleated RBC 0.2(H) 0 /100 WBC 01/17/2023 4:28 AM [facility] (ACCR[facility]ITED BY [facility] [facility]) Absolute Nucleated RBC (#) 0.02(H) 0 k/uL 01/17/2023 4:28 AM [facility] (ACCREDITED BY [facility] [facility]) Neutrophils (%) 54 % 4:28 AM [facility] (ACCREDITED [facility]) Lymphocytes (%) 12 % 4:28 AM [facility] (ACCREDITED BY [facility] [facility]) Monocytes (%) 10 % 01/17/2023 4:28 AM [facility] ([facility]CREDITED [facility]) Eosinophils (%) 22 % 4:28 AM [facility] (ACCREDITED [facility]) Basophils (%) 1 % 01/17/2023 4:28 AM [facility] (ACCREDITED [facility] [facility]) Immature Granulocytes (%) 1 % 01/17/2023 4:28 AM [facility] (ACCREDITED BY [facility]) Absolute Neutrophils (#) 5.07 1.80 - 7.70 k/uL 01/17/2023 4:28 AM [facility] (ACCREDITED [facility] [facility]) Absolute Lymphocytes (#) 1.15 1.00 - 4.80 k/uL 01/17/2023 4:28 AM [facility] (ACCREDITED [facility] [facility]) Absolute Monocytes (#) 0.88(H) 0.00 - 0.80 k/uL 01/17/2023 4:28 AM EDT [facility] (ACCREDITED [facility] [employer] [facility] [employer] [facility]) Absolute Eosinophils (#) 2.00(H) 0.00 - 0.50 k/uL 01/17/2023 4:28 AM EDT [facility] (ACCREDITED BY [facility] [employer] [facility] [employer] [facility]) Absolute Basophils (#) 0.06 0.00 - 0.20 k/uL 01/17/2023 4:28 AM EDT [facility] (ACCREDITED BY [facility] [employer] [employer] [facility]) Absolute Immature Granulocytes (#) 0.10(H) 0 k/uL 01/17/2023 4:28 AM EDT [facility] (ACCREDITED [facility] [employer] [facility]) Blood BLOOD / Unknown Venipuncture / Unknown 01/17/2023 3:52 AM EDT 01/17/2023 4:12 AM EDT Williams Murray DO LAB BLOOD ORDERABLES Performing Organization Address City/[facility]/ZIP Co de Phone Number [facility] (ACCREDITED [facility] [employer] [facility]) [address] [place] [phone] * (ABNORMAL) BNP (01/16/2023 3:55 AM EDT) Only the most recent of5 resultswithin the time period is included. Brain Natr Peptide 825(H) <=100 pg/mL 01/16/2023 5:42 AM EDT [facility] (ACCREDITED [facility] [employer] [facility]) Blood BLOOD / Unknown Venipuncture / Unknown 01/16/2023 3:55 AM EDT 01/16/2023 4:14 AM EDT [facility]- LAB BLOOD OR DERABLES Performing Organization Address City/[facility]/ZIP Co de Phone Number [facility] (ACCREDITED BY [facility] [employer] [facility]) [address] [place] [phone] * XRAY CHEST 1 VIEW (01/14/2023 5:26 [...] is included. EKG Text INTERFACED DOCUMENTS - [facility] - ABNORMAL ECG - Atrial-ventricu lar dual-paced rhythm Biventricular paced rhythm non-simultaneou s bi-vent pacing When compared with ECG of 14-Jan-2023 5:10:50, No significant change Reading Physician ? [id number]&Parker &Abdoulaye [facility] (ACCREDITED BY [facility] [employer] [facility] ) Heart Rate 73 EKG LAB P-R Interval 152 EKG LAB P [place] -22 EKG LAB QRS Duration 171 EKG LAB QT Internal 551 EKG LAB QTcB 609 EKG LAB QRS [place] -13 EKG LAB I-40 [place] 148 EKG LAB T-40 [place] 135 EKG LAB T Wave [place] -[address] [place] 173 EKG LAB 01/14/2023 4:50 PM EDT Gaurav Lin MD EKG ORDERABLES Performing Organization Address [facility] Co de Phone Number [facility] (ACCREDITED BY [facility] [employer] [facility]) [address] [place] [phone] EKG LAB [address] [place] [phone] * (ABNORMAL) VITAMIN B12 (01/14/2023 4:45 PM EDT) Pathologist [facility] Vitamin B12 1,356(H) 213 - 816 pg/mL 01/14/2023 5:55 PM EDT [facility] (ACCREDITED BY [facility] [employer] [facility]) Blood BLOOD / Unknown Venipuncture / Unknown 01/14/2023 4:45 PM EDT 01/14/2023 4:49 PM EDT Gaurav Lin MD LAB BLOOD ORDERABL ES Performing Organization Address [facility]/ZIP Co de Phone Number [facility] (ACCREDITED BY [facility] [employer] [facility]) [address] [place] [address] * FOLATE (01/14/2023 4:45 PM EDT) [facility] Folate 3.4 See Comment ng/mL 01/14/2023 5:55 PM EDT [facility] (ACCREDITED BY [facility] [employer] [facility]) Comment: Folate Reference Ranges: Normal: ? >5.4 ng/mL Indeterminant: ?? 3.4-5.4 ng/mL Deficient: ?<3.4 ng/mL Blood BLOOD / Unknown Venipuncture / Unknown 01/14/2023 4:45 PM EDT 01/14/2023 4:49 PM EDT Gaurav Lin MD LAB BLOOD ORDERABL ES Performing Organization Address City/[facility]/ZIP Co de Phone Number [facility] (ACCREDITED BY [facility] [employer] [facility]) [address] [place] [phone] * (ABNORMAL) HEMATOCRIT (01/14/2023 4:45 PM EDT) Hematocrit 28.7(L) 40.0 - 52.0 % 01/14/2023 4:57 PM EDT [facility] (ACCREDITED BY [facility] [employer] [facility]) Blood BLOOD / Unknown Venipuncture / Unknown 01/14/2023 4:45 PM EDT 01/14/2023 4:49 PM EDT Gaurav Lin MD LAB BLOOD ORDERABL ES Performing Organization Address [facility]/ZIP Co de Phone Number [facility] (ACCREDITED BY [facility] [employer] [facility]) [address] [place] [phone] * (ABNORMAL) HEMOGLOBIN (01/14/2023 4:45 PM EDT) Hemoglobin 8.8(L) 13.0 - 18.0 g/dL 01/14/2023 4:57 PM EDT [facility] (ACCREDITED BY [facility] [employer] [facility]) Blood BLOOD / Unknown Venipuncture / Unknown 01/14/2023 4:45 PM EDT 01/14/2023 4:49 PM EDT Gaurav Lin MD LAB BLOOD ORDERABL ES Performing Organization Address City/[facility]/ZIP Co de Phone Number [facility] (ACCREDITED BY [facility] [employer] [facility]) [address] [place] [phone] * (ABNORMAL) FERRITIN (01/14/2023 1:31 PM EDT) Ferritin 338(H) 22 - 322 ng/mL 01/14/2023 3:38 PM EDT [facility] (ACCREDITED BY [facility] [employer] [facility]) Blood BLOOD / Unknown Venipuncture / Unknown 01/14/2023 1:31 PM EDT 01/14/2023 1:37 PM EDT Gaurav Lin MD LAB BLOOD ORDERABL ES Performing Organization Address [facility] Co de Phone Number [facility] (ACCREDITED BY [facility] [employer] [facility]) [address] [place] [address] * (ABNORMAL) TOTAL IRON BINDING CAPACITY (TIBC) (01/14/2023 1:31 PM EDT) Transferrin 256 163 - 344 mg/dL 01/14/2023 3:20 PM EDT [facility] (ACCREDITED BY [facility] [employer] [facility]) TIBC 320 250 - 450 ug/dL 01/14/2023 3:20 PM EDT [facility] (ACCREDITED BY [facility] [employer] [facility]) % Transferrin Saturation 13(L) 20 - 50 % 01/14/2023 3:20 PM EDT [facility] (ACCREDITED BY [facility] [employer] [employer] [facility]) Iron 43(L) 65 - 175 ug/dL 01/14/2023 3:20 PM EDT [facility] (ACCREDITED BY [facility] [employer] [facility]) Blood BLOOD / Unknown Venipuncture / Unknown 01/14/2023 1:31 PM EDT 01/14/2023 1:37 PM EDT Gaurav Lin MD LAB BLOOD ORDERABL ES Performing Organization Address City/[facility]/ZIP Co de Phone Number [facility] (ACCREDITED BY [facility] [employer] [employer] [facility]) [address] [place] [phone] * (ABNORMAL) LD (LDH) (01/14/2023 1:31 PM EDT) Lactate Dehydrogenase (LD; LDH) 399(H) 125 - 220 U/L 01/14/2023 2:13 PM EDT [facility] (ACCREDITED BY [facility] [employer] [facility]) Blood BLOOD / Unknown Venipuncture / Unknown 01/14/2023 1:31 PM EDT 01/14/2023 1:37 PM EDT Gaurav Lin MD LAB BLOOD ORDERABL ES [facility] (ACCREDITED BY [facility] [employer] [facility]) [address] [place] [phone] * (ABNORMAL) HAPTOGLOBIN (01/14/2023 1:31 PM EDT) Pathologist [facility] Haptoglobin 30(L) 40 - 268 mg/dL 01/14/2023 2:13 PM EDT [facility] (ACCREDITED BY [facility] [employer] [facility]) Blood BLOOD / Unknown Venipuncture / Unknown 01/14/2023 1:31 PM EDT 01/14/2023 1:37 PM EDT Gaurav Lin MD LAB BLOOD ORDERABL ES [facility] (ACCREDITED BY [facility] [employer] [facility]) [address] [place] [phone] * (ABNORMAL) HEPATIC FUNCTION PANEL (01/14/2023 5:18 AM EDT) Only the most recent of3 resultswithin the time period is included. Pathologist [facility] Albumin 2.6(L) 3.2 - 4.6 g/dL 01/14/2023 6:08 AM EDT [facility] (ACCREDITED BY [facility] [employer] [facility]) Bilirubin, Total 1.1 0.1 - 1.2 mg/dL 01/14/2023 6:08 AM EDT [facility] (ACCREDITED BY [facility] [employer] [facility]) Bilirubin, Direct 0.7(H) <=0.5 mg/dL 01/14/2023 6:08 AM EDT [facility] (ACCREDITED BY [facility] [employer] [facility]) Alk Phosphatase 42 40 - 150 U/L 01/14/2023 6:08 AM T [facility] (ACCREDITED BY [facility] [employer] [facility]) SGOT (AST) 33 5 - 34 U/L 01/14/2023 6:08 AM EDT [facility] (ACCREDITED BY [facility] [employer] [facility]) SGPT (ALT) 18 0 - 55 U/L 01/14/2023 6:08 AM T [facility] (ACCREDITED BY [facility] [employer] [facility]) Protein, Total 5.1(L) 6.2 - 8.1 g/dL 01/14/2023 6:08 AM T [facility] (ACCREDITED BY [facility] [employer] [facility]) Bilirubin, Indirect 0.4 mg/dL 01/14/2023 6:08 AM T [facility] (ACCREDITED BY [facility] [employer] [facility] [employer] [facility]) Globulin (Calc'd) 2.5 g/dL 01/14/2023 6:08 AM T [facility] (ACCREDITED BY [facility] [employer] [facility]) A:G Ratio 1.04 01/14/2023 6:08 AM T [facility] (ACCREDITED BY [facility] [employer] [facility]) Blood BLOOD / Unknown Venipuncture / Unknown 01/14/2023 5:18 AM EDT 01/14/2023 5:31 AM EDT Gaurav Lin MD LAB BLOOD ORDERABL ES [facility] (ACCREDITED BY [facility] [employer] [facility]) [address] [place] [address] * (ABNORMAL) RETICULOCYTE PANEL (01/13/2023 4:16 AM EDT) Reticulocyte Count (%) 8.44(H) 0.20 - 2.90 % 01/13/2023 10:42 PM EDT [facility] (ACCREDITED BY [facility] [employer] [facility]) RBC (Red Blood Cell Count) 2.97(L) 4.40 - 5.90 M/uL 01/13/2023 10:42 PM EDT [facility] (ACCREDITED BY [facility] [employer] [facility]) Hematocrit 28.8(L) 40.0 - 52.0 % 01/13/2023 10:42 PM EDT [facility] (ACCREDITED BY [facility] [employer] [facility]) Absolute Reticulocyte Count (#) 250.8(H) 25.0 - 119.0 K/uL 01/13/2023 10:42 PM EDT [facility] (ACCREDITED BY [facility] [employer] [facility]) Immature Reticulocyte Fraction 29.5(H) 3.0 - 15.9 01/13/2023 10:42 PM EDT [facility] (ACCREDITED BY [facility] [employer] [facility]) Reticulocyte Hemoglobin Content 25.7(L) 30 - 38 pg 01/13/2023 10:42 PM EDT [facility] (ACCREDITED BY [facility] [employer] [facility]) Blood BLOOD / Unknown Venipuncture / Unknown 01/13/2023 4:16 AM EDT 01/13/2023 4:30 AM EDT Gaurav Lin MD LAB BLOOD ORDERABL ES [facility] (ACCREDITED BY [facility] [employer] [facility]) [address] [place] [address] * XRAY CHEST 1 VIEW (01/12/2023 7:50 [...] Pseudomonas aeruginosa(A) TORO 01/14/2023 10:37 AM EDT [facility] (ACCREDITED BY [facility] [employer] [facility] ) Urine URETHRAL STRUCTURE / Unknown [...] Williams Murray DO LAB MICROBIOLOGY ORD ERABLES [facility] (ACCREDITED BY [facility] [employer] [facility]) [address] [place] [address] * (ABNORMAL) URINALYSIS, COMPLETE (01/12/2023 10:15 AM EDT) Only the most recent of2 resultswithin the time period is included. Color, Urine Straw Colorless, Yellow, or Straw 01/12/2023 10:56 AM EDT [facility] (ACCREDITED BY [facility] [employer] [facility] ) Clarity, Urine Clear Clear 01/12/2023 10:56 AM T [facility] (ACCREDITED BY [facility] [employer] [facility] ) Specific [place], Urine 1.011 1.005 - 1.030 01/12/2023 10:56 AM [facility] (ACCREDITED BY [facility] [employer] [facility] ) pH, Urine 6.5 5.0 - 8.0 01/12/2023 10:56 AM T [facility] (ACCREDITED BY [facility] [employer] [facility] ) Hemoglobin, Urine Trace(A) Negative 01/12/2023 10:56 AM EDT [facility] (ACCREDITED BY [facility] [employer] [facility] ) Bilirubin, Urine Negative Negative 01/12/2023 10:56 AM T [facility] (ACCREDITED BY [facility] [employer] [facility] [employer] [facility] ) Urobilinogen, Urine Normal Normal 01/12/2023 10:56 AM T [facility] (ACCREDITED BY [facility] [employer] [facility] [employer] [facility] ) Ketones, Urine Negative Negative 01/12/2023 10:56 AM EDT [facility] (ACCREDITED BY [facility] [employer] [facility] [employer] [facility] ) Glucose, Urine Negative Negative 01/12/2023 10:56 AM EDT [facility] (ACCREDITED BY [facility] [employer] [facility] [employer] [facility] ) Nitrites, Urine Negative Negative 01/12/2023 10:56 AM EDT [facility] (ACCREDITED BY [facility] [employer] [facility] [employer] [facility] ) Leukocyte Esterase, Urine 1+(A) Negative 01/12/2023 10:56 AM EDT [facility] (ACCREDITED BY [facility] [employer] [facility] [employer] [facility] ) Protein, Urine Negative Negative 01/12/2023 10:56 AM EDT [facility] (ACCREDITED BY [facility] [employer] [employer] [facility] ) RBC, Urine 2(H) 0 /HPF 01/12/2023 10:56 AM EDT [facility] (ACCREDITED BY [facility] [employer] [facility] ) WBC, Urine 4(H) 0 /HPF 01/12/2023 10:56 AM EDT [facility] (ACCREDITED BY [facility] [employer] [facility] [employer] [facility] ) Squamous Epithelial Cells, Urine Few(A) None Seen /HPF 01/12/2023 10:56 AM T [facility] (ACCREDITED BY [facility] [employer] [facility] ) Bacteria, Urine Present(A) None Seen 01/12/2023 10:56 AM EDT [facility] (ACCREDITED BY [facility] [employer] [facility] ) Non-Squamous Epithelial Cells, Urine Few(A) (none) /HPF 01/12/2023 10:56 AM T [facility] (ACCREDITED BY [facility] [employer] [facility] ) Hyaline Casts, Urine Present(A) (none) /LPF 01/12/2023 10:56 AM EDT [facility] (ACCREDITED BY [facility] [employer] [facility] ) Urine URETHRAL STRUCTURE / Unknown Non-blood Collection / Unknown 01/12/2023 10:15 AM EDT 01/12/2023 10:45 AM EDT Orlin Pratt MD LAB URINE ORDERABL ES [facility] (ACCREDITED BY [facility] [employer] [facility]) [address] [place] [address] * VAT US GUIDED PERIPHERAL IV PLACEMENT (01/12/2023 9:55 AM EDT) Narrative Model, Auto-Degreasing Solution Reclaimer - 01/12/2023 10:07 AM EDT Impression: The Peripheral IV line was placed by the Vascular Access Team (VAT). Please see progress notes for full report. Williams Murray DO RADIOLOGY VAT ORDERA BLES * (ABNORMAL) CBC WITH DIFF (01/11/2023 4:03 AM EDT) Only the most recent of2 resultswithin the time period is included. WBC (White Blood Cell Count) 6.70 4.50 - 11.00 k/uL 01/11/2023 4:22 AM T [facility] (ACCREDITED BY [employer]) RBC (Red Blood Cell Count) 2.98(L) 4.40 - 5.90 M/uL 01/11/2023 4:22 AM [facility] (ACCREDITED BY [employer]) Hemoglobin 9.2(L) 13.0 - 18.0 g/dL 01/11/2023 4:22 AM [facility] (ACCREDITED BY [employer]) Hematocrit 29.0(L) 40.0 - 52.0 % 01/11/2023 4:22 AM [facility] (ACCREDITED BY THE [facility]GE OF [employer]) MCV (Mean Corpuscular Volume) 97.3 80.0 - 100.0 fL 01/11/2023 4:22 AM [facility] (ACCREDITED BY THE [employer]) MCH (Mean Corpuscular Hemoglobin) 30.9 26.0 - 34.0 pg 01/11/2023 4:22 AM [facility] (ACCREDITED BY THE [employer]) MCHC (Mean Corpuscular Hemoglobin Concentration) 31.7(L) 32.0 - 36.0 g/dL 01/11/2023 4:22 AM [facility] (ACCREDITED BY THE [employer]) RDW (Red Cell Distribution Width) 17.4(H) 11.5 - 14.5 % 01/11/2023 4:22 AM [facility] (ACCREDITED BY THE [employer]) Platelet Count 89(L) 150 - 440 k/uL 01/11/2023 4:22 AM [facility] (ACCREDITED BY THE [employer]) MPV (Mean Platelet Volume) 10.2 7.4 - 10.6 fL 01/11/2023 4:22 AM [facility] (ACCREDITED BY THE [employer]) Nucleated RBC 0.0 0 /100 WBC 01/11/2023 4:22 AM [facility] (ACCREDITED BY THE [employer]) Absolute Nucleated RBC (#) <0.01 0 k/uL 01/11/2023 4:22 AM [facility] (ACCREDITED BY THE [employer] [facility] [employer]) Neutrophils (%) 77 % 4:22 AM [facility] (ACCREDITED BY THE [employer]) Lymphocytes (%) 6 % 4:22 AM [facility] (ACCREDITED BY THE [employer]) Monocytes (%) 6 % 01/11/2023 4:22 AM [facility] (ACCREDITED BY THE [employer]) Eosinophils (%) 11 % 4:22 AM [facility] (ACCREDITED BY THE [employer]) Basophils (%) 0 % 01/11/2023 4:22 AM [facility] (ACCREDITED BY THE [employer]) Immature Granulocytes (%) 0 % 01/11/2023 4:22 AM [facility] (ACCREDITED BY THE [employer]) Absolute Neutrophils (#) 5.10 1.80 - 7.70 k/uL 01/11/2023 4:22 AM [facility] (ACCREDITED BY THE [employer]) Absolute Lymphocytes (#) 0.42(L) 1.00 - 4.80 k/uL 01/11/2023 4:22 AM [facility] (ACCREDITED BY THE [employer]) Absolute Monocytes (#) 0.41 0.00 - 0.80 k/uL 01/11/2023 4:22 AM [facility] (ACCREDITED BY THE [employer]) Absolute Eosinophils (#) 0.73(H) 0.00 - 0.50 k/uL 01/11/2023 4:22 AM [facility] (ACCREDITED BY THE [employer]) Absolute Basophils (#) 0.02 0.00 - 0.20 k/uL 01/11/2023 4:22 AM EDT [facility] (ACCREDITED BY THE [employer]) Absolute Immature Granulocytes (#) 0.02(H) 0 k/uL 01/11/2023 4:22 AM EDT [facility] (ACCREDITED BY THE [employer]) Blood Venipuncture / Unknown 01/11/2023 4:03 AM EDT 01/11/2023 4:08 AM EDT Natividad Hatch ACNP LAB BLOOD ORDER ROOSEVELT Performing Organization Address City/[facility]/ZIP Co de Phone Number [facility] (ACCREDITED BY THE [employer]) [address] [place] [id number] * POTASSIUM (01/10/2023 10:41 PM EDT) Only the most recent of3 resultswithin the time period is included. Pathologist [facility] Potassium 4.2 3.5 - 4.5 mEq/L 01/10/2023 11:46 PM EDT [facility] (ACCREDITED BY THE [employer]) Blood BLOOD / Unknown Venipuncture / Unknown 01/10/2023 10:41 PM EDT 01/10/2023 11:33 PM EDT Karuna NGUYEN LAB BLOOD ORDERABLES Performing Organization Address City/[facility]/ZIP Co de Phone Number [facility] (ACCREDITED BY THE [employer]) [address] [place] [address] * (ABNORMAL) CULTURE, RESPIRATORY (01/10/2023 5:52 PM EDT) Respiratory Culture 1+ Gram negative rods(s) not Pseudomonas aeruginosa, Acinetobacter species, Stenotrophomonas maltophilia, nor Burkholderia species(A) 01/12/2023 3:43 PM EDT [facility] (ACCREDITED BY THE [employer] PATH[employer] S) Respiratory Culture 1+ Gram negative rods(s) not Pseudomonas aeruginosa, Acinetobacter species, Stenotrophomonas maltophilia, nor Burkholderia species(A) 01/12/2023 3:43 PM EDT [facility] (ACCREDITED BY THE [employer] OF [employer] S) Respiratory Culture Gram negative rods(s) not Pseudomonas aeruginosa, Acinetobacter species, Stenotrophomonas maltophilia, nor Burkholderia species(A) 01/12/2023 3:43 PM EDT [facility] (ACCREDITED BY THE [employer]) Comment:One colony Gram Stain >=15 WBC/LPF 01/12/2023 3:43 PM EDT [facility] (ACCREDITED BY THE [employer] OF [employer] S) Gram Stain <15 Epithelial cells/LPF 01/12/2023 3:43 PM EDT [facility] (ACCREDITED BY THE [employer] OF [employer] PATH[employer] S) Gram Stain No organisms seen 023 3:43 PM EDT [facility] (ACCREDITED BY THE [employer] OF [employer] S) Respiratory SPUTUM SPECIMEN / Unknown 01/10/2023 5:52 PM EDT 01/10/2023 5:57 PM EDT Narrative [facility] (ACCREDITED BY THE [employer]) - 01/12/2023 3:43 PM EDT 2+ Oropharyngeal nia Tran ORTEGAP LAB MICROBIOLO GY ORDERABLES [facility] (ACCREDITED BY THE [employer]) [address] [place] [address] * XRAY CHEST 1 VIEW (01/10/2023 5:08 AM EDT) Anatomical Region Laterality Modality Chest Digital Radiogra phy 01/10/2023 7:53 AM EDT Impressions 01/10/2023 7:54 AM EDT IMPRESSION: No pneumothorax. Persistent bilateral upper lobe opacities. Improved pulmonary edema. Reading Doctor: Hugh Salcido Electronic Signature by: Hugh Salcido Narrative 01/10/2023 7:54 AM EDT Procedure(s): XRAY CHEST [...] Salcido Electronic Signature by: Hugh Salcido Zara Capellan [facility] RADIOLOGY DIAGNOST IC ORDERABLES * CBC REFLEX LAB ONLY ORDER (01/10/2023 3:11 AM EDT) Only the most recent of2 resultswithin the time period is included. Blood BLOOD / Unknown Venipuncture / Unknown 01/10/2023 3:11 AM EDT 01/10/2023 3:16 AM EDT Zara Capellan [facility] LAB HEMATOLOGY ORD ERABLES [facility] (ACCREDITED BY THE [employer]) [address] [place] [address] * CALCIUM, IONIZED, WHOLE BLOOD (01/09/2023 11:21 PM EDT) Only the most recent of3 resultswithin the time period is included. Ionized Calcium 4.5 4.5 - 5.3 mg/dL 01/09/2023 11:43 PM EDT [facility] (ACCREDITED BY THE [employer]) Blood BLOOD / Unknown Venipuncture / Unknown 01/09/2023 11:21 PM EDT 01/09/2023 11:29 PM EDT Zara Capellan ACNP LAB BLOOD ORDERABL ES [facility] (ACCREDITED BY THE [employer]) [address] [place] [address] * ECHO (01/09/2023 6:36 AM EDT) Only [...] 5.9 mmHg X [facility] EC [id number] 3 mmHg XCELER A CARDIAC REPORTS EC [...] VTI ratio 0.39. No paravalvular leak. S/p [id number] TAVR with 26 mm Evolut FX (within [...] The left atrium is mildly dilated. S/p dsstu-kf-[id number] TAVR with 26 mm Evolut FX (within 25 mm Magna, post dilated with 23 mm True balloon) on 01/08/23. Well-seated, normally functioning aortic prosthesis. No paravalvular leak. The peak aortic valve velocity 3.1 m/s. Aortic mean pressure gradient= 18 mmHg. VTI ratio 0.39. There is mild mitral regurgitation. InterpretingPhysician:Interpreting Physician: ?? Timothy ??Mabel, ??electronically signed on 2023-01-10 16:37:24.54 Procedure [...] VTI ratio 0.39. No paravalvular leak. S/p wcrlw-sf-[id number] TAVR with 26 mm Evolut FX (within [...] The left atrium is mildly dilated. S/p xylad-pn-crllm TAVR with 26 mm Evolut FX (within 25 mm Magna, post dilated with 23 mm True balloon) on 01/08/23. Well-seated, normally functioning aortic prosthesis. No paravalvular leak. The peak aortic valve velocity 3.1 m/s. Aortic mean pressure gradient= 18 mmHg. VTI ratio 0.39. There is mild mitral regurgitation. InterpretingPhysician:Interpreting Physician: Timothy Monroe,electronically signed on 2023-01-10 16:37:24.54 Yudy Cruz [facility] ECHOCARDIOLOGY ORD ERABLES * XRAY CHEST 1 [...] 7.37 - 7.47 01/08/2023 3:34 PM EDT [facility] (ACCREDITED BY THE [employer]) PCO2, Arterial 44(H) 31 - 42 mm Hg 01/08/2023 3:34 PM EDT [facility] (ACCREDITED BY THE [employer]) PO2, Arterial 80 80 - 90 mm Hg 01/08/2023 3:34 PM EDT [facility] (ACCREDITED BY THE [employer]) Bicarbonate (HCO3), Arterial 25 20 - 25 mmol/L 01/08/2023 3:34 PM EDT [facility] (ACCREDITED BY THE [employer]) O2 Saturation, Arterial 97 94 - 97 % 01/08/2023 3:34 PM EDT [facility] (ACCREDITED BY THE [employer]) Base Excess, Arterial 1.2 -3.0 - 3.0 mmol/L 01/08/2023 3:34 PM EDT [facility] (ACCREDITED BY THE [employer]) O2 Therapy, Liters (FIO2 L) 6 L 01/08/2023 3:34 PM EDT [facility] (ACCREDITED BY THE [employer]) Blood ARTERIAL STRUCTURE / Unknown Arterial Puncture / Unknown 01/08/2023 3:18 PM EDT 01/08/2023 3:30 PM EDT Anam Lewis PA-C LAB BLOOD ORDER ROOSEVELT [facility] (ACCREDITED BY THE [employer]) [address] [place] [address] * XRAY CHEST 1 VIEW (01/08/2023 1:09 [...] - 169 sec 01/17/2023 9:45 AM EDT [facility] (ACCREDITED BY THE [employer]) Blood BLOOD / Unknown 01/08/2023 1 1:38 AM EDT 01/17/2023 9:45 AM EDT Abdoulaye Canales MD LAB POC UNSOLICIT ED ORDERABLES [facility] (ACCREDITED BY THE [employer]) [address] [place] [id number] * (ABNORMAL) [facility] ABG PLUS (01/08/2023 11:34 AM EDT) Only the most recent of2 resultswithin the time period is included. pH, Arterial 7.37 7.37 - 7.47 01/08/2023 11:30 AM T [facility] (ACCREDITED BY THE [employer]) PCO2, Arterial 48(H) 31 - 42 mm Hg 01/08/2023 11:30 AM [facility] (ACCREDITED BY THE [employer] OF [employer]) PO2, Arterial 184(H) 80 - 90 mm Hg 01/08/2023 11:30 AM [facility] (ACCREDITED BY THE [employer] [facility] [employer]) Bicarbonate (HCO3), Arterial 28(H) 20 - 25 mmol/L 01/08/2023 11:30 AM [facility] (ACCREDITED BY THE [employer] [facility] [employer]) O2 Saturation, Arterial 100 94 - 100 % 01/08/2023 11:30 AM T [facility] (ACCREDITED BY THE [employer] OF [employer]) Base Excess, Arterial 2.2 -3.0 - 3.0 mmol/L 01/08/2023 11:30 AM [facility] (ACCREDITED BY THE [employer] OF [employer]) Heart Rumson Sodium 135 135 - 145 mEq/L 01/08/2023 11:30 AM T [facility] (ACCREDITED BY THE [employer]) Heart Inst. Potassium 3.0(L) 3.5 - 5.1 mEq/L 01/08/2023 11:30 AM EDT [facility] (ACCREDITED BY THE [employer]) Heart Inst. Glucose 146(H) 70 - 105 mg/dL 01/08/2023 11:30 AM EDT [facility] (ACCREDITED BY THE [employer]) Ionized Calcium 4.2(L) 4.5 - 5.3 mg/dL 01/08/2023 11:30 AM EDT [facility] (ACCREDITED BY THE [employer]) Hemoglobin 9.2(L) 13.0 - 18.0 g/dL 01/08/2023 11:30 AM EDT [facility] (ACCREDITED BY THE [employer]) Hematocrit 28.2(L) 40.0 - 52.0 % 01/08/2023 11:30 AM T [facility] (ACCREDITED BY THE [employer] OF [employer]) Blood ARTERIAL STRUCTURE / Unknown 01/08/2023 11:34 AM EDT 01/08/2023 11:30 AM EDT Anam Winchester MD LAB POC UNSOLICIT ED ORDERABLES [facility] (ACCREDITED BY THE [employer]) [address] [place] [address] * RED BLOOD CELLS (SET-UP) (PATIENT WT > 30KG) (01/08/2023 7:09 AM EDT) PRODUCT CODE [id number] 01/11/2023 12:20 AM EDT [facility] (ACCREDITED BY THE [employer] ) UNIT NUMBER [id number] 01/12/20 12:20 AM T [facility] (ACCREDITED BY THE [employer] ) BLOOD TYPE, ABO A 01/11/2023 12:20 AM EDT [facility] (ACCREDITED BY THE [employer] ) BLOOD TYPE, RH POS 01/11/2023 12:20 AM T [facility] (ACCREDITED BY THE [employer] ) CROSSMATCH STATUS Compatible 01/08/2023 1:13 PM EDT [facility] (ACCREDITED BY THE [employer] OF [employer] ) UNIT STATUS RE 01/11/2023 12:20 AM EDT [facility] (ACCREDITED BY THE [employer] ) EXPIRATION [id number] 01/11/2023 12:20 AM EDT [facility] (ACCREDITED BY THE [employer] ) BLOOD TYPE BARCODE 6200 01/11/2023 12:20 AM EDT [facility] (ACCREDITED BY THE [employer] ) PRODUCT CODE [id number] 01/11/2023 12:20 AM EDT [facility] (ACCREDITED BY THE [employer] ) UNIT NUMBER [id number] 01/12/20 12:20 AM EDT [facility] (ACCREDITED BY THE [employer] ) BLOOD TYPE, ABO A 01/11/2023 12:20 AM EDT [facility] (ACCREDITED BY THE [employer] ) BLOOD TYPE, RH POS 01/11/2023 12:20 AM EDT [facility] (ACCREDITED BY THE [employer] ) CROSSMATCH STATUS Compatible 01/08/2023 1:13 PM EDT [facility] (ACCREDITED BY THE [employer] OF [employer] ) UNIT STATUS RE 01/11/2023 12:20 AM EDT [facility] (ACCREDITED BY THE [employer] ) EXPIRATION [id number] 01/11/2023 12:20 AM EDT [facility] (ACCREDITED BY THE [employer] ) BLOOD TYPE BARCODE 6200 01/11/2023 12:20 AM EDT [facility] (ACCREDITED BY THE [employer] ) Tania Hartley MD LAB BLOOD BANK PA ODUCT ORDERABLES [facility] (ACCREDITED BY THE [employer]) [address] [place] [address], * (ABNORMAL) PT (PROTHROMBIN TIME) WITH INR (01/08/2023 4:39 AM EDT) Only the most recent of3 resultswithin the time period is included. PT 19.2(H) 10.2 - 12.9 seconds 01/08/2023 5:01 AM EDT [facility] (ACCREDITED BY THE [employer]) INR 1.6 01/08/2023 5:01 AM EDT [facility] (ACCREDITED BY THE [employer]) Comment:STD Therapeutic Rang e 2-3 Blood BLOOD / Unknown Venipuncture / Unknown 01/08/2023 4:39 AM EDT 01/08/2023 4:44 AM EDT Michael Hernandez DO LAB BLOOD ORDERAB LES [facility] (ACCREDITED BY THE [employer]) [address] [place] [address] * TYPE & SCREEN (01/07/2023 5:37 AM EDT) ABO GROUP AB 01/07/2023 7:38 AM EDT [facility] (ACCREDITED BY THE [employer]) RH TYPE Positive 01/07/2023 7:38 AM EDT [facility] (ACCREDITED BY THE [employer]) AB SCREEN Negative 01/07/2023 7:38 AM EDT [facility] (ACCREDITED BY THE [employer]) Blood BLOOD / Unknown Venipuncture / Unknown 01/07/2023 5:37 AM EDT 01/07/2023 5:41 AM EDT Sparkle Georges WANT AD SUPERVISOR- LAB BLOOD BA NK TEST ORDERABLES [facility] (ACCREDITED BY THE [employer]) [address] [place] [address], * VAT US GUIDED PERIPHERAL IV PLACEMENT (01/06/2023 11:00 PM EDT) Narrative Model, Auto-Degreasing Solution Reclaimer - 01/06/2023 11:03 PM EDT Impression: The Peripheral IV line was placed by the Vascular Access Team (VAT). Please see progress notes for full report. Devon NGUYEN RADIOLOGY VAT ORDER ROOSEVELT * POTASSIUM, WHOLE BLOOD (01/06/2023 4:06 AM EDT) Pathologist [facility] Potassium 3.6 3.5 - 4.5 mEq/L 01/06/2023 4:16 AM EDT [facility] (ACCREDITED BY THE [employer]) Blood BLOOD / Unknown Venipuncture / Unknown 01/06/2023 4:06 AM EDT 01/06/2023 4:11 AM EDT Devon NGUYEN LAB BLOOD ORDERABLE S Performing Organization Address City/[facility]/ZIP Co de Phone Number [facility] (ACCREDITED BY THE [employer]) [address] [place] [id number] * PTT (01/05/2023 5:49 AM EDT) Only the most recent of2 resultswithin the time period is included. Pathologist [facility] PTT 33.1 25.1 - 36.5 seconds 01/05/2023 6:31 AM EDT [facility] (ACCREDITED BY THE [employer]) Blood BLOOD / Unknown Venipuncture / Unknown 01/05/2023 5:49 AM EDT 01/05/2023 5:52 AM EDT Sparkle Georges [facility] LAB BLOOD OR DERABLES Performing Organization Address City/[facility]/ZIP Co de Phone Number [facility] (ACCREDITED BY THE [employer]) [address] [place] [address] * MRSA ADMIT SCREEN (01/04/2023 6:43 PM EDT) Pathologist [facility] MRSA DNA (PCR) Negative Negative 01/05/2023 12:12 PM EDT [facility] (ACCREDITED BY THE [employer]) Comment: No MRSA DNA detected. A negative result does not preclude nasal colonization. Swab BOTH ANTERIOR NARES / Unknown Non-blood Collection / Unknown 01/04/2023 6:43 PM EDT 01/04/2023 6:55 PM EDT Narrative [facility] (ACCREDITED BY THE [employer]) - 01/05/2023 12:12 PM EDT The [employer]? ? MRSA XT assay is a real-time PCR test intended for the qualitative detection of DNA from MRSA. Sparkle Georges [facility] LAB MICROBIO LOGY ORDERABLES Performing Organization Address City/[facility]/ZIP Co de Phone Number [facility] (ACCREDITED BY THE [employer]) [address] [place] [id number] * LACTIC ACID (01/03/2023 12:45 PM EDT) Only the most recent of4 resultswithin the time period is included. Lactic Acid 1.5 0.5 - 2.0 mmol/L 01/03/2023 1:05 PM EDT [facility] (ACCREDITED BY THE [employer]) Blood ARTERIAL STRUCTURE / Unknown Arterial Puncture / Unknown 01/03/2023 12:45 PM EDT 01/03/2023 12:56 PM EDT Jeyson Richard MD LAB BLOOD ORDERABL ES Performing Organization Address [facility] Co de Phone Number [facility] (ACCREDITED BY THE [employer]) [address] [place] [id number] * LEGIONELLA ANTIGEN, URINE (01/03/2023 11:50 AM EDT) Legionella Ag, U Negative Negative 01/05/20 2:08 PM EDT [facility] Comment: Negative for L. pneumophila serogroup 1 [...] a rapid immunochromatographic assay. Test Performed by: [facility] [address] [place] [address] Apparel Patternmaker: Aroldo West M.D. Ph.D.; CLIA# [id number] Urine URETHRAL STRUCTURE / Unknown Non-blood Collection / Unknown 01/03/2023 11:50 AM EDT 01/03/2023 11:54 AM EDT Jose Montes MD LAB URINE ORDERAB LES Performing Organization Address City/[facility]/ZIP Co de Phone Number [facility] [address] [place] [address], * S. PNEUMONIAE AG,URINE (01/03/2023 11:50 AM EDT) S pneumoniae Antigen Negative Negative 01/03/2023 12:29 PM EDT [facility] (ACCREDITED BY THE [employer]) Urine URETHRAL STRUCTURE / Unknown Non-blood Collection / Unknown 01/03/2023 11:50 AM EDT 01/03/2023 11:54 AM EDT Jose Montes MD LAB MICROBIOLOGY ORDERABLES [facility] (ACCREDITED BY THE [employer]) [address] [place] [address] * XRAY CHEST 1 VIEW (01/03/2023 10:09 [...] 12.26(HH) <=0.03 ng/mL 01/03/2023 1:30 AM EDT [facility] (ACCREDITED BY THE [employer]) Blood BLOOD / Unknown Venipuncture / Unknown 01/03/2023 12:38 AM EDT 01/03/2023 12:47 AM EDT Miller Cooper MD LAB BLOOD ORDERABLE S [facility] (ACCREDITED BY THE [employer]) [address] [place] [address] * VAT US GUIDED PERIPHERAL IV PLACEMENT (01/01/2023 11:55 PM EDT) Narrative Model, Auto-Degreasing Solution Reclaimer - 01/02/2023 1:53 AM EDT Impression: The Peripheral IV line was placed by the Vascular Access Team (VAT). Please see progress notes for full report. Jeyson Richard MD RADIOLOGY VAT ELLIOTT DOIMNGUEZ * XRAY CHEST 1 VIEW (01/01/2023 8:04 [...] 4:17 AM EDT) Neutrophils (%) 79 % 3 6:04 AM EDT [facility] (ACCREDITED BY THE [employer]) Bands (%) 0 % 12/31/2022 6:04 AM EDT [facility] (ACCREDITED BY THE [employer]) Lymphocytes (%) 10 % 3 6:04 AM EDT [facility] (ACCREDITED BY THE [employer]) Monocytes (%) 5 % 12/31/2022 6:04 AM EDT [facility] (ACCREDITED BY THE [employer]) Eosinophils (%) 6 % 6:04 AM EDT [facility] (ACCREDITED BY THE [employer]) Basophils (%) 0 % 12/31/2022 6:04 AM EDT [facility] (ACCREDITED BY THE [employer]) Absolute Neutrophils/Band s (#) 4.08 1.80 - 7.70 k/uL 12/31/2022 6:04 AM EDT [facility] (ACCREDITED BY THE [employer]) Absolute Lymphocytes (#) 0.52(L) 1.00 - 4.80 k/uL 12/31/2022 6:04 AM EDT [facility] (ACCREDITED BY THE [employer]) Absolute Monocytes (#) 0.26 0.00 - 0.80 k/uL 12/31/2022 6:04 AM EDT [facility] (ACCREDITED BY THE [employer]) Absolute Eosinophils (#) 0.31 0.00 - 0.50 k/uL 12/31/2022 6:04 AM EDT [facility] (ACCREDITED BY THE [employer]) Absolute Basophils (#) 0.00 0.00 - 0.20 k/uL 12/31/2022 6:04 AM T [facility] (ACCREDITED BY THE [employer]) Blood BLOOD / Unknown Venipuncture / Unknown 12/31/2022 4:17 AM EDT 12/31/2022 4:38 AM EDT Miller Cooper MD LAB BLOOD ORDERABLE S [facility] (ACCREDITED BY THE [employer]) [address] [place] [address] * CTA ABDOMEN PELVIS W & W/O [...] An exophytic lesion posterior left lower pole [id number] mm and 50 Hounsfield units is indeterminate. [...] Electronic Signature by: Rupali Li Sparkle Georges [facility] RADIOLOGY CT ORDERABLES * CTA CHEST W [...] An exophytic lesion posterior left lower pole [id number] mm and 50 Hounsfield units is indeterminate. [...] Rupali Li Electronic Signature by: Rupali Li Sparklecheli Rowe José Manuel [facility] CT ORDERABLES * CULTURE, BLOOD (12/28/2022 6:00 PM EDT) Only the most recent of2 resultswithin the time period is included. Blood Culture No growth 5 days 01/02/2023 7:31 PM EDT [facility] (ACCREDITED BY [employer]) Blood BLOOD / Unknown Venipuncture / Unknown 12/28/2022 6:00 PM EDT 12/28/2022 6:28 PM EDT Natividad Hatch ACNP LAB MICROBIOLOG Y ORDERABLES Performing Organization Address [facility] Co de Phone Number [facility] (ACCREDITED BY [employer]) [address] [place] [phone] * (ABNORMAL) OXYHEMOGLOBIN-MIXED VENOUS-POC (12/28/2022 3:56 PM EDT) Only the most recent of3 resultswithin the time period is included. Oxyhemoglobin- Mx Venous 93.1(H) 60 - 80 % 12/28/2022 4:54 PM EDT [facility] (ACCREDITED BY [employer]) Blood BLOOD / Unknown 12/28/2022 3 :56 PM EDT 12/28/2022 4:54 PM EDT Ko Feliciano DO LAB POC UNSOLICITED ORDERABLES Performing Organization Address [facility] Co de Phone Number [facility] (ACCREDITED BY [employer]) [address] [place] [phone] * XRAY CHEST 1 VIEW (12/28/2022 2:18 [...] See Comment mg/dL 12/28/2022 3:03 PM EDT [facility] (ACCREDITED BY [employer]) Comment: CHOLESTEROL REFERENCE RANGES: ??DESIRABLE: <200 mg/dL ??BORDERLINE HIGH: 200-239 mg/dL ??HIGH: >239 mg/dL ?? Triglyceride 67 <=150 mg/dL 12/28/2022 3:03 PM EDT [facility] (ACCREDITED BY [employer]) HDL Cholesterol 27(L) 40 - 60 mg/dL 12/28/2022 3:03 PM T [facility] (ACCREDITED BY [employer]) Comment: HDL Reference Ranges: ?Low: <40 mg/dL ??High: >=60 mg/dL ?? LDL 60 mg/dL 12/28/2022 3:03 PM T [facility] (ACCREDITED BY [employer]) Comment: LDL Reference Ranges: ?Optimal: <100 mg/dL ??Near or above optimal: 100-129 mg/dL ??Borderline High: 130-159 mg/dL ??High: 160-189 mg/dL ??Very High: >= 190 mg/dL Chol/HDL Ratio 3.7 mg/dL 12/28/2022 3:03 PM EDT [facility] (ACCREDITED BY [employer]) Blood BLOOD / Unknown Venipuncture / Unknown 12/28/2022 2:17 PM EDT 12/28/2022 2:22 PM EDT Natividad Chayitojesus manuel Hatch [facility] LAB BLOOD ORDER [place] Performing Organization Address City/[facility]/ZIP Co de Phone Number [facility] (ACCREDITED BY [employer]) [address] [place] [phone] * HEMOGLOBIN A1C (GLYCOSYLATED) (12/28/2022 2:17 PM EDT) Pathologist [facility] Hemoglobin A1C 5.0 4.3 - 5.7 % 12/28/2022 4:59 PM EDT [facility] (ACCREDITED BY [employer]) Est Avg Glucose 97 mg/dL 4:59 PM EDT [facility] (ACCREDITED BY [employer]) Blood BLOOD / Unknown Venipuncture / Unknown 12/28/2022 2:17 PM EDT 12/28/2022 2:23 PM EDT Narrative [facility] (ACCREDITED BY [employer]) - 12/28/2022 4:59 PM EDT This assay has been cleared by the FDA to be used as an aid in the diagnosis of diabetes and in identifying patients who may be at risk for developing diabetes. The threshold for diagnosis of diabetes is an HA1c result > or = 6.5%. Natividad Hatch [facility] BLOOD ORDER [place] Performing Organization Address [facility]/ZIP Co de Phone Number [facility] (ACCREDITED BY [employer]) [address] [place] [phone] * TSH WITH REFLEX TO FREE T4 (12/28/2022 2:17 PM EDT) [facility] TSH (High Sensitive) 1.98 0.35 - 4.94 uIU/mL 12/28/2022 3:19 PM EDT [facility] (ACCREDITED BY [employer]) Blood BLOOD / Unknown Venipuncture / Unknown 12/28/2022 2:17 PM EDT 12/28/2022 2:23 PM EDT Natividad Anne Mamie [facility] B[facility] [place] [facility] (ACCREDITED BY [employer]) [address] [place] [address] * (ABNORMAL) COMPREHENSIVE METABOLIC PANEL (12/28/2022 2:17 PM EDT) Sodium 137 136 - 145 mEq/L 12/28/2022 3:03 PM EDT [facility] (ACCREDITED BY [employer]) Potassium 4.5 3.5 - 4.5 mEq/L 12/28/2022 3:03 PM EDT [facility] (ACCREDITED BY [employer]) Chloride 111(H) 98 - 107 mEq/L 12/28/2022 3:03 PM EDT [facility] (ACCREDITED BY [employer]) CO2 13(L) 23 - 31 mEq/L 12/28/2022 3:03 PM T [facility] (ACCREDITED BY [employer]) Calcium 8.5 8.4 - 10.2 mg/dL 12/28/2022 3:03 PM T [facility] (ACCREDITED BY [employer]) Glucose 130(H) 70 - 105 mg/dL 12/28/2022 3:03 PM EDT [facility] (ACCREDITED BY [employer]) BUN 57(H) 8 - 26 mg/dL 12/28/2022 3:03 PM T [facility] (ACCREDITED BY [employer]) Creatinine 1.64(H) 0.72 - 1.25 mg/dL 12/28/2022 3:03 PM EDT [facility] (ACCREDITED BY [employer]) Glomerular Filtration Rate 43(L) >=59 mL/Min/1.7 3 m2 12/28/2022 3:03 PM [facility] (ACCREDITED BY THE [employer]) Protein, Total 6.6 6.2 - 8.1 g/dL 12/28/2022 3:03 PM [facility] (ACCREDITED BY [employer]) Albumin 3.4 3.2 - 4.6 g/dL 12/28/2022 3:03 PM [facility] (ACCREDITED BY [employer]) Bilirubin, Total 0.8 0.1 - 1.2 mg/dL 12/28/2022 3:03 PM [facility] (ACCREDITED BY THE [employer]) Alk Phosphatase 31(L) 40 - 150 U/L 12/28/2022 3:03 PM [facility] (ACCREDITED BY [employer]) SGOT (AST) 169(H) 5 - 34 U/L 12/28/2022 3:03 PM [facility] (ACCREDITED BY [facility] [employer]) SGPT (ALT) 28 0 - 55 U/L 12/28/2022 3:03 PM [facility] (ACCREDITED BY [employer]) Anion Gap 13(H) 4 - 12 mEq/L 12/28/2022 3:03 PM [facility] (ACCREDITED BY THE [employer]) Bun:Creat Ratio 34.76 3:03 PM [facility] (ACCREDITED BY [employer]) Osmo (Calc'd) 304 mOsm/kg 12/28/2022 3:03 PM [facility] (ACCREDITED BY [employer]) Globulin (Calc'd) 3.2 g/dL 12/28/2022 3:03 PM [facility] (ACCREDITED BY THE [employer]) A:G Ratio 1.06 12/28/2022 3:03 PM [facility] (ACCREDITED BY [employer]) Blood BLOOD / Unknown Venipuncture / Unknown 12/28/2022 2:17 PM EDT 12/28/2022 2:22 PM EDT Natividad Hatch [facility] BLO[facility] ORDER [place] [facility] (ACCREDITED BY [employer]) [address] [place] [address] documented in this encounter Visit Diagnoses Diagnosis NSTEMI (non-ST elevated myocardial infarction) ([facility]) ([facility]) ([facility]) ([facility]) Acute myocardial infarction, subendocardial infarction, episode of care unspecified Acute coronary syndrome (CMS/HCC) (CMS-HCC) ([facility]) ([facility]) Intermediate coronary syndrome Shock ([facility]) ([facility]) ([facility]) ([facility]) Shock, unspecified Hypertension Unspecified essential hypertension Hyperlipidemia Other and unspecified hyperlipidemia Coronary artery disease Coronary atherosclerosis of unspecified type of vessel, [place] or graft * Initial Eval - Zac Estrada OTR/Jessica - 01/09/2023 9:40 AM EDT ACUTE OT ASSESSMENT [facility] Date of Assessment: 01/09/2023 Patient Name: Raghu Rosenthal : 1945 Age: 77yrs Sex: Male Admit Date: 12/28/2022 Problem List (Physician/Prescriber generated effective date of this evaluation) Patient Active Problem List Diagnosis Date Noted *(H)01/08/23 TransCatheter Aortic Valve Replacement (Nriep-ug-Gfiql, 26 Medtronic Evolut Pro, via the Left Transfemoral Approach) EF 35% 01/08/2023 (H)CKD (chronic kidney disease) stage 3, GFR 30-59 ml/min ([facility]) 01/09/2023 (H)FILIBERTO (acute kidney injury) [place] 01/09/2023 (H)Pulmonary edema 01/09/2023 (H)Cardiogenic shock ([facility] 01/08/2023 (H)Acute on chronic HFrEF (heart failure with reduced ejection fraction) ([facility] 01/08/2023 Personal history of transient ischemic attack (TIA), and cerebral infarction without residual deficits 01/07/2023 Vitreous degeneration, right eye 12/29/2022 Thrombocytopenia, unspecified ([facility] 12/29/2022 Sensorineural hearing loss, bilateral 12/29/2022 Psoriasis with arthropathy ([facility] 12/29/2022 Arthropathic psoriasis, unspecified ([facility] 12/29/2022 Posttraumatic stress disorder 12/29/2022 Postsurgical aortocoronary [...] rhinitis 12/29/2022 (H)NSTEMI (non-ST elevated myocardial infarction) ([facility] 12/28/2022 (H)Hypertension 12/28/2022 (H)Hyperlipidemia 12/28/2022 (H)Coronary artery disease 12/28/2022 Diabetes mellitus ([facility]) 05/22/2019 Osteoarthritis of both knees 10/08/2018 Bradycardia 02/21/2018 Nonrheumatic aortic (valve) stenosis 08/19/2013 Subarachnoid hemorrhage ([facility]) 04/22/2012 Sleep apnea 04/22/2012 S/P prosthetic total arthroplasty of the hip 04/22/2012 Pancreatitis 04/22/2012 GERD (gastroesophageal reflux disease) 04/22/2012 Former smoker 04/22/2012 Fatty liver 04/22/2012 Diverticulitis 04/22/2012 Cholelithiasis 04/22/2012 Abdominal panniculus 04/22/2012 Psoriasis 05/05/2011 Cerebellar stroke syndrome 01/22/2011 Medical History (Physician/Prescriber generated effective date of this evaluation) Past Medical History: Diagnosis Date Coronary artery disease Diverticulitis Hyperlipidemia Hypertension Subdural hematoma ([facility]) Patient/Family Goal: To get better. [...] to . Call for an appointment to [phone], select option1 then option 1. O.T. Has [...] 37.26 Assessment: OT services are indicated. Raghu Neri [...] followed by acute OT services 4x/week. JACK Nation/Jessica *Please utilize Cortext to contact* * Initial Gloria Herman, PT - 01/09/2023 9:39 AM EDT PHYSICAL THERAPY EVALUATION-[facility] Patient Name: Raghu Rosenthal Date of Treatment: 01/09/2023 Date of : 1945 Age: 77yrs Date of admission: 12/28/2022 Attending Provider: Tania Hartley MD Start Time: Time In: 916 End Time: Time Out: 938 Active Hospital Problems Diagnosis *01/08/23 TransCatheter Aortic Valve Replacement (Mzzzg-li-Evzme, 26 Medtronic Evolut Pro, via the Left Transfemoral Approach) EF 35% CKD (chronic kidney disease) stage 3, GFR 30-59 ml/min ([facility]) FILIBERTO (acute kidney injury) ([facility] Pulmonary edema Cardiogenic shock ([facility]) Acute on chronic HFrEF (heart failure with reduced ejection fraction) ([facility]) NSTEMI (non-ST elevated myocardial infarction) ([facility]) Hypertension Hyperlipidemia Coronary artery disease [...] through December, however home set up is asset protection representative of their home they will return [...] DC from Hospital: Spouse Caregiver Availability : time clock mechanic Caregiver/Physical Assistance available: Significant assistance available Home [...] up/down: due to limited strength/endurance Outcome Tools: [facility] SHORT FORMS TOOL BASIC MOBILITY Raghu Rosenthal [...] a railin- A Lot Basic Mobility Scores [facility] Mobility Raw Score: 17 AM-[facility] Mobility t-Score: 39.67 [facility] Mobility G-Code Modifier: CK Legend for Raw [...] DC from Hospital: Spouse Caregiver Availability : time clock mechanic Caregiver/Physical Assistance available: Significant assistance available Equipment Needed at DC: Will be assessed at next level of care Physical Therapy Recommendations: Consults: Consults: Would benefit from Rehab MD Consult Equipment: Will be assessed at next level of care Discharge Therapy Needs: High intensity therapy in an inpatient setting, Acute PT will continue to follow Gloria Orozco PT Cortext Preferred * Initial Nakiaal - Nidhi Humphrey PT - 01/05/2023 3:09 PM EDT PHYSICAL THERAPY EVALUATION-INPATIENT [facility] Patient Name: Raghu Rosenthal Date [...] preparation, housework, caring for others) Community/social life (rastafarian, social functions, recreation, leisure) Treatment Plan PT [...] Patient Safety: Siderail Status: 2 Rails at [facility] are Up Bed Position: Low Position, Wheels [...] DC from Hospital: Spouse Caregiver Availability : time clock mechanic Caregiver/Physical Assistance available: Significant assistance available Equipment [...] method of communication. * Initial Ruma Ramirez CCM - 12/31/2022 2:12 PM EDT [facility] Case Management Assessment Patient Name: Raghu Rosenthal : 1945 Age: 77yrs MEG: [id number] Admit Date: 12/28/2022 Room: [place] [address] Attending Provider: Jeyson Richard MD Primary Care Provider: Williams Yip MD Last Admission: 12/31/22 ED Chief Complaint: No chief complaint on file. Reason for Consult/Assessment: Routine Assessment There are no questions and answers to display. Principal Problem: Acute coronary syndrome (CMS/[facility]) Advance Directives: Advance Directive/Healthcare Power of Landscape Designer Advance Directive/Living Will: No, information provided Health Care Power of Landscape Designer: No, information provided Source of Information: Self, Chart Review This patient's decision maker is: Self Family/Support system: Living Arrangements: Spouse/significant other Support Systems: Spouse/significant other Type of Residence: Private residence Support Name: Cathy Rosenthal Support Phone Number: [phone] Verbal Permission Given to Contact?: Yes Psychology Instructor Services Is an cardiology physician needed/used?: No Need for family participation in patient care?: GRAPHIC USER INTERFACE DESIGNER services/supplies/DME: Established Respiratory Supplies: CIPAP Machine Home [...] Psychosocial Summary: Pt has been vacationing in [place] for 3 months, from [place], plans to return to [place] at d/c, independent with ADLs', 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, 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, could not remember address in [place],can call ifneeded DME CPAP HH none Pharmacy[facility], encouraged to get any d/c meds from hospital pharmacy Pt has ride home CM will continue to follow Ruma Andrade CCM 12/31/2022 documented in this encounter Admitting Diagnoses Diagnosis NSTEMI (non-ST elevated myocardial infarction) ([facility]) ([facility]) ([facility]) ([facility]) Acute myocardial infarction, subendocardial infarction, episode of care unspecified documented in this encounter Administered Medications Inactive Administered Medications - up to 3 most recent administrations Medication Order MAR Action Action Date Dose Rate Site albuterol HFA (PROVENTIL HFA;VENTOLIN HFA) 90 mcg/actuation inhaler 2 Puff 2 Puff, Inhalation, EVERY 4 HOURS NEEDED, Shortness of Breath, Starting on Sun01/10/23 at 1606, For 365 days, RN to administer. Shake well. Med Disposal - Aerosol aspirin EC tablet 81 mg 81 mg, [...] Given 01/17/2023 8:33 AM EDT 81 mg bisacodyL (DULCOLAX) EC tablet 5 mg 5 mg, Oral, DAILY, First dose on Sun01/10/23 at 1000, For 365 days, Do NOT crush, break, or chew. $ Given 01/19/2023 9:17 AM EDT 5 mg $ Given 01/18/2023 8:48 AM EDT 5 mg $ Given 01/17/2023 8:32 AM EDT 5 mg clopidogreL (PLAVIX) tablet 75 mg 75 mg, Oral, DAILY, First dose on Sun01/09/23 at 1000, For 30 days $ Given 01/19/2023 9:17 AM EDT 75 mg $ Given 01/18/2023 8:48 AM EDT 75 mg $ Given 01/17/2023 8:33 AM EDT 75 mg enoxaparin (LOVENOX) 40 mg/0.4 mL injection [...] 40 mg Ab dominal Tissue EPINEPHrine (ADRENALIN) 0.1 mg/mL (1:10,000) injection NEEDED, Starting on Sun01/08/23 at 0911, Intra-op $ Given 01/08/2023 9:11 AM EDT 1 mL Other,see comment escitalopram (LEXAPRO) tablet 20 mg 20 mg, [...] on 12/30/22 at 1525, For 365 days $ Given 01/19/2023 8:00 AM EDT 145 mg $ Given 01/18/2023 8:48 AM EDT 145 mg $ Given 01/17/2023 8:33 AM EDT 145 mg ferrous sulfate EC tablet 325 mg 325 [...] Given 01/17/2023 8:33 AM EDT 1 mg gabapentin (NEURONTIN) capsule 100 mg 100 mg, Oral, AT BEDTIME, First dose (after last modification) on Sun01/09/23 at 2200, For 359 doses, Fall Risk Medication $ Given 01/18/2023 9:12 PM EDT 100 mg $ Given 01/17/2023 8:57 PM EDT 100 mg $ Given 01/16/2023 10:04 PM EDT 100 mg heparin (porcine) 5,000 Units in electrolyte-R (pH 7.4) 1,000 mL OR solution 5,000 Units, Flush, NEEDED, Other, flushing as directed by surgeon, Starting on Sun01/08/23 at 0701, For 1 day, Intra-op, For OR USE ONLY for open-heart cases. Concentration 5 units/ml. SEND to [facility] the morning of procedure. $ Given 01/08/2023 9:11 AM EDT 5,000 Units Other,see comment heparin (porcine) 5,000 Units in electrolyte-R (pH 7.4) 1,000 mL OR solution 5,000 Units, Flush, NEEDED, Other, flushing as directed by surgeon, Starting on Sun01/08/23 at 0949, For 1 day, Intra-op, For OR USE ONLY for open-heart cases. Concentration 5 units/ml. SEND to [facility] the morning of procedure. $ Given 01/08/2023 10:56 AM EDT 5,000 Units Other,see comment iodixanoL (VISIPAQUE) 320 mg iodine/mL injection NEEDED, Starting on 01/08/23 at 1209, Intra-op $ Given 01/08/2023 12:09 PM EDT 160 mL Other,see comment melatonin tablet Tab 5 mg 5 mg, Oral, AT BEDTIME, First dose on 01/13/23 at 2200, For 365 days $ Given 01/18/2023 9:11 PM EDT 5 mg $ Given 01/17/2023 8:57 PM EDT 5 mg $ Given 01/16/2023 10:04 PM EDT 5 mg metoprolol succinate XL (TOPROL-XL) 24 hr tablet 25 mg 25 mg, Oral, DAILY, First dose on Sun01/17/23 at 1000, For 365 days, Do NOT crush or chew. May break in half. $ Given 01/19/2023 9:17 AM EDT 25 mg $ Given 01/18/2023 8:47 AM EDT 25 mg $ Given 01/17/2023 8:44 AM EDT 25 mg ondansetron (ZOFRAN) injection [...] NEEDED, Severe Pain, Unrelieved Pain, Starting on 01/14/23 at 1707, For 365 days, FALL RISK [...] Given 01/17/2023 6:15 AM EDT 40 mg phenoL (CHLORASEPTIC) 1.4 % oral spray 1 Ulysses 1 Ulysses, Mucous Membrane, NEEDED, Sore throat, Starting on Sun01/09/23 at 1436, For 30 days, Same as Chloraseptic Ulysses. $ Given 01/10/2023 7:29 PM EDT 1 Ulysses $ Given 01/10/2023 9:00 AM EDT 1 Ulysses polyethylene glycol (GLYCOLAX) packet 17 g 17 g (0.134 g/kg), Oral, DAILY, First dose on Sun01/10/23 at 1000, For 365 days, Use for Miralax. 17 grams = 1 packet. Mix in 8 ounces of juice or water. $ Given 01/17/2023 8:32 AM EDT 17 g $ Given 01/16/2023 8:14 AM EDT 17 g $ Given 01/15/2023 9:38 AM EDT 17 g sodium chloride 0.9 % flush 3 mL [...] Given 01/18/2023 9:13 PM EDT 3 mL spironolactone (ALDACTONE) tablet [...] Given 01/17/2023 8:44 AM EDT 1 Capsule torsemide (DEMADEX) tablet 60 mg 60 mg, Oral, TWICE A DAY DIURETICS, First dose on Sun01/16/23 at 0930, For 365 days, Fall Risk Medication $ Given 01/19/2023 4:00 PM EDT 60 mg $ Given 01/19/2023 4:38 AM EDT 60 mg $ Given 01/18/2023 4:24 PM EDT 60 mg documented in this encounter Active and [...] RN) 0847 ($ Given - Provider: Flip Moscoso, RN) 0917 ($ Given - Provider: Mary Chavez, JULIA) bisacodyL (DULCOLAX) EC tablet 5 mg 5 mg, Oral, DAILY, First dose on Sun01/10/23 at 1000, For 365 days, Do NOT crush, break, or chew. 0832 ($ Given - Provider: Flip Moscoso RN) 0848 ($ Given - Provider: Flip Moscoso, RN) 0917 ($ Given - Provider: Mary Chavez, JULIA) clopidogreL (PLAVIX) tablet 75 mg 75 mg, Oral, DAILY, First dose on Sun01/09/23 at 1000, For 30 days 0833 ($ Given - Provider: Flip Moscoso RN) 0848 ($ Given - Provider: Flip Moscoso RN) 0917 ($ Given - Provider: Mary Chavez, RN) enoxaparin (LOVENOX) 40 mg/0.4 mL injection [...] RN) 1600 ($ Given - Provider: Mary Chavez, JULIA) escitalopram (LEXAPRO) tablet 20 mg 20 mg, Oral, DAILY, First dose on Sun12/29/22 at 1000, For 365 days, Fall Risk Medication 0833 ($ Given - Provider: Flip Moscoso RN) 0848 ($ Given - Provider: Flip Moscoso RN) 0917 ($ Given - Provider: Mary Chavez, RN) fenofibrate (TRICOR) tablet 145 mg 145 mg, Oral, WITH BREAKFAST, First dose on Sun12/30/22 at 1525, For 365 days 0833 ($ Given - Provider: Flip Moscoso RN) 0848 ($ Given - Provider: Flip Moscoso, RN) 0800 ($ Given - Provider: Mary Chavez, RN) ferrous sulfate EC tablet 325 mg 325 mg, Oral, EVERY 48 HOURS, First dose on Sun01/14/23 at 1800, For 365 days, Use for doses of 300mg or 325mg 1515 ($ Given - Provider: Flip Moscoso, JULIA) 1624 ($ Given - Provider: Flip Moscoso, JULIA) folic acid (FOLVITE) tablet 1 mg 1 mg, Oral, DAILY, First dose on Sun01/14/23 at 1810, For 365 days, Use for Folate or Folvite. 0833 ($ Given - Provider: Flip Moscoso RN) 0848 ($ Given - Provider: Flip Moscoso RN) 0917 ($ Given - Provider: Mary Chavez RN) gabapentin (NEURONTIN) capsule 100 mg 100 mg, Oral, AT BEDTIME, First dose (after last modification) on Sun01/09/23 at 2200, For 359 doses, Fall Risk Medication 2056 ($ Given - Provider: Nela Olmos RN) 2111 ($ Given - Provider: Maru Leblanc RN) hydrOXYzine (VISTARIL) capsule 50 mg (COMPLETED) 50 mg, Oral, ONCE, On Sun01/17/23 at 1450, For 1 dose, Fall Risk Medication 1515 ($ Given - Provider: Flip Moscoso RN) insulin lispro (HumaLOG) 100 units/mL sensitivity factor injection Subcutaneous, FOUR TIMES A DAY WITH MEALS & BEDTIME, First dose on Sun01/11/23 at 1800, For 365 days, Document administration [...] 0740 ($ New Bag/Syringe - Provider: Mary Chavez, RN)1040 (Stopped - Provider: Mary Chavez RN) magnesium sulfate in SWI 2 gram/50 mL IVPB (premix) 2 g (COMPLETED) 2 g, Intravenous, at 25 mL/hr, Administer over 2 Hours, ONCE, On Sun01/17/23 at 2235, For 1 dose, Recommended for serum magnesium 1 to 1.5 mg/dL 2201 ($ New Bag/Syringe - Provider: Nela Olmos RN) 0001 (Stopped - Provider: Nela Olmos RN) melatonin tablet Tab 5 mg 5 mg, Oral, AT BEDTIME, First dose on Sun01/13/23 at 2200, For 365 days 2056 ($ Given - Provider: Nela Olmos RN) 2110 ($ Given - Provider: Maru Leblanc RN) metoprolol succinate XL (TOPROL-XL) 24 hr tablet 25 mg 25 mg, Oral, DAILY, First dose on Sun01/17/23 at 1000, For 365 days, Do NOT crush or chew. May break in half. 0844 ($ Given - Provider: Flip Moscoso RN) 0847 ($ Given - Provider: Flip Moscoso, JULIA) 0917 ($ Given - Provider: Mary Chavez, JULIA) pantoprazole (PROTONIX) EC tablet 40 mg 40 mg, Oral, DAILY AT 0600, First dose on Sun01/09/23 at 0600, For 365 days, Do NOT crush, break, or chew. Take on an empty stomach at least 30 minutes before food. 0615 ($ Given - Provider: Indigo Shi RN) 0502 ($ Given - Provider: Nela Olmos [...] replacement 0833 ($ Given - Provider: Flip Moscoso RN) potassium chloride (KLOR-CON M20) CR tablet [...] replacement 1200 ($ Given - Provider: Mary Chavez, JULIA) potassium chloride in water 20 mEq/100 mL IVPB (premix) 20 mEq (COMPLETED) 20 mEq, Intravenous, at 50 mL/hr, Administer over 2 Hours, ONCE, On Sun01/17/23 at 0655, For 1 dose, Infuse 20 mEq over 2 hours for serum potassium 3.5-3.7 mEq/L 0621 ($ New Bag/Syringe - Provider: Indigo Shi RN)0730 (Stopped - Provider: Flip Moscoso, RN) sod phos di, mono-K phos mono [...] Shi RN)1400 ($ Given - Provider: Flip Moscoso, RN)2200 ($ Given - Provider: Nela Olmos RN) 0600 ($ Given - Provider: Nela Olmos RN)1400 ($ Given - Provider: Flip Moscoso, RN)2113 ($ Given - Provider: Maru Leblanc RN) 0438 ($ Given - Provider: Maru Leblanc RN)1400 ($ Given - Provider: Mary Chavez, RN) spironolactone (ALDACTONE) tablet 25 mg 25 mg, Oral, DAILY, First dose on Sun01/09/23 at 0525, For 365 days, Fall Risk Medication 0833 ($ Given - Provider: Flip Moscoso RN) 0847 ($ Given - Provider: Flip Moscoso, RN) 0917 ($ Given - Provider: Mary Chavez, RN) thiamine mononitrate (VITAMIN B-1) tablet 100 mg 100 mg, Oral, DAILY, First dose on Sun01/15/23 at 1000, For 365 days 0833 ($ Given - Provider: Flip Moscoso RN) 0848 ($ Given - Provider: Flip Moscoso RN) 0917 ($ Given - Provider: Mary Chavez RN) tiotropium (SPIRIVA) 18 mcg per inhalation [...] Shi RN)1515 ($ Given - Provider: Flip Moscoso RN) 0502 ($ Given - Provider: Nela Olmos RN)1624 ($ Given - Provider: Flip Moscoso RN) 0438 ($ Given - Provider: Maru Leblanc RN)1600 ($ Given - Provider: Mary Chavez, JULIA) PRN Medication Order 01/17/2023 01/18/2023 01/19/2023 albuterol HFA (PROVENTIL HFA;VENTOLIN HFA) 90 mcg/actuation inhaler 2 Puff(Linked Group 1) 2 Puff, Inhalation, EVERY 4 HOURS NEEDED, Shortness of Breath, Starting on Sun01/10/23 at 1606, For 365 days, RN to administer. Shake well. Med Disposal - Aerosol dextrose (DIABETIC [...] MEDICATION. 0719 ($ Given - Provider: Flip Moscoso RN)1406 ($ Given - Provider: Flip Moscoso RN)1929 ($ Given - Provider: Nela Olmos RN) 0000 ($ Given - Provider: Nela Olmos RN)0410 ($ Given - Provider: Nela Olmos RN)1006 ($ Given - Provider: Flip Moscoso RN)2116 ($ Given - Provider: Maru Leblanc RN) 1248 ($ Given - Provider: Mary Chavez RN) phenoL (CHLORASEPTIC) 1.4 % oral spray 1 Ulysses 1 Ulysses, Mucous Membrane, NEEDED, Sore throat, Starting on Sun01/09/23 at 1436, For 30 days, Same as Chloraseptic Ulysses. Linked Groups Order Group 1: albuterol HFA [...] Routine documented in this encounter Care Teams Ripsaw Grader Relationship Specialty [place] [address] [place] [address] PCP - General Cardiology 12/29/22 Nela Trejo [address] [place] [address] 01/02/23 documented as of this encounter Additional [...] prosecute any alcohol or drug abuse patient. [employer] ([employer])
--- OUTSIDE RECORDS SUMMARY | 2024-09-23 14:18 | XMS_ITS ---
Author Organization [employer] ([employer] Address [address] [place] [address] Care Team Providers Care Circular Shear Operator Name Role Phone Williams Yip MD Primary Care Provider [phone] Nela Trejo Unavailable Unavailable Hospital Transition Status:Closed (Closed) Start date:01/02/2023 Enrollment reason:Identified as high-risk End date:02/12/2023 Close reason:No longer meets criteria Overview D/c'd home 02/07/23. Resides outside of [facility] coverage area. Continued Care and Services Coordination
--- OUTSIDE RECORDS SUMMARY | 2024-09-23 14:18 | XMS_ITS ---
Author Organization [employer] ([employer]) Address [address] [place] [address] Care Team Providers Care Director Of Annual Giving Name Role Phone Williams Yip MD Primary Care Provider [phone] Nela Trejo Unavailable Unavailable Telehealth Status:Not Eligible (Closed) Start date:01/02/2023 Enrollment date:01/02/2023 Enrollment reason:Identified using Emergency Department data End date:02/08/2023 Close reason:No longer meets criteria Continued Care and Services Coordination
--- OUTSIDE RECORDS SUMMARY | 2024-09-23 14:18 | XMS_ITS | Encounter Summary ---
Author Organization [employer] (a[employer] Address [address] [place] [address] Care Team Providers Care Engineer Intern Name Role Phone Williams Yip MD Primary Care Provider [phone] Nela Trejo Unavailable Unavailable Reason for Referral * (Routine) - Closed Specialty Diagnoses / Procedures Referred By Contac t Referred To Contact Outpatient Services Diagnoses NSTEMI (non-ST elevated myocardial infarction) (CMS/HCC) ([facility]) ([facility]) ([facility]) [place] [address] [place] [address] Referral ID Status Reason Start Date Expiration Date Visits Re quested Visits Authorized [id number] Closed 01/02/2023 01/02/2024 1 1 Encounter Details Date Type Department Care Team ([facility] Contact Info) Description 01/02/2023 Patient Outreach Access [facility] [address] [place] [address] Jerilyn Voss RN [address] [place] [address] TC Acute/Inpatient Social History Tobacco Use Types Packs/Day Years [...] as of this encounter Progress Notes * Jerilyn Voss, RN - 01/02/2023 8:51 AM EDT Ref TH documented in this encounter Plan of Treatment Scheduled Referrals Name Type Priority Associated Diagnoses Orde r Schedule AMB REFERRAL TO TELEHEALTH Referral Routine NSTEMI (non-ST elevated myocardial infarction) (CMS/HCC) Ordered: 01/02/2023 documented as of this encounter Visit Diagnoses Diagnosis NSTEMI (non-ST elevated myocardial infarction) (CMS/HCC) (CMS-HCC) (CMS/HCC) (CMS-HCC)- Primary Acute myocardial infarction, subendocardial infarction, episode of care unspecified documented in this encounter Care Teams Engineer Intern Relationship Specialty Start Date End Date Williams Yip MD [address] [place] [address] PCP - General Cardiology 12/29/22 Nela Trejo [address] [place] [address] 01/02/23 documented as of this encounter Additional [...] prosecute any alcohol or drug abuse patient. [facility] [employer] ([employer] [facility])
--- OUTSIDE RECORDS SUMMARY | 2024-09-23 14:18 | XMS_ITS | Encounter Summary ---
Author Organization [employer] Address [address] [place] [address] Care Team Providers Care Proposal Review Analyst Name Role Phone Williams Yip MD Primary Care Provider [phone] Nela Trejo Unavailable Unavailable Encounter Details Date Type Department Care Team (Late st Contact Info) Description 01/05/2023 Miscellaneous [facility] [place] [facility] Phys[facility] [address] [place] [id number] Mary Valentin, JULIA [address] [place] [address] Social History Tobacco Use Types Packs/Day Years [...] Progress Notes * Mary Valentin RN - 01/05/2023 9:01 AM EDT Before Surgery [place] Heart Failure Questionnaire (CQ-12) The following questions [...] did not do the activity Showering/bathing O X O O O O Walking 1 block on level ground X O O O O O Hurrying or jogging (as if to catch a bus) X O O O O O Over the past 2 weeks, how many times did you have swelling in your feet, ankles or legs when you woke up in the morning? 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 Unable to safely complete walk test due to falls risk. documented in this encounter Plan of Treatment Not on file documented as of this encounter Visit Diagnoses Not on filedocumented in this encounter Care Teams Proposal Review Analyst Relationship Specialty Start Date End Date Williams Yip MD [address] [place] [address] PCP - General Cardiology 12/29/22 Nela Trejo [address] [place] [address] 01/02/23 documented as of this encounter Additional [...] prosecute any alcohol or drug abuse patient. [facility] ([facility])
--- OUTSIDE RECORDS SUMMARY | 2024-09-23 14:19 | XMS_ITS | Encounter Summary ---
Author Organization [facility] [place] [address] Care Team Providers Care Alcohol Rubber Name Role Phone Doug Valderrama MD Primary Care Provider [phone] Encounter Details Date Type Department Care Team (Late st Contact Info) Description 05/12/2024 Telephone Cardiology at [address] [phone] Cecilia Amanda Social History Tobacco Use Types Packs/Day Years Used Date Smoking Tobacco: Former Cigarettes Q uit: 01/09/2001 Smokeless Tobacco: Never Alcohol Use Standard Drinks/Week Comments Yes 0 (1 standard drink = 0.6 oz pur e alcohol) SOCIAL Sex and Gender Information Value Date Recorded Sex Assigned at Not on file Gender Identity Not on file Sexual Orientation Not on file documented as of this encounter Miscellaneous Notes * Telephone Encounter - Cecilia Amanda - 05/12/2024 2:01 PM EDT Call to pt to advise that appt has been scheduled for 05/21 at 2 pm for patient to be seen per Dr. Kim's request for urgent appt. ? Lead malfunction. LVM requesting patient call back to confirm appt. Email also sent to Mary Valdivia to advise of add-on. Cecilia Amanda Electrophysiology Sr. Clinical Admin Dir documented in this encounter Plan of Treatment Upcoming Encounters Date Type Department Care Team (Late st Contact Info) Description 12/18/2024 2:00 PM EDT Office Visit Dermatology at [facility] [address] [place] [address] Joyce Snyder MD [facility] [place] [address] documented as of this encounter Goals Goal Patient Goal Type Associated Problems Recent Progress Patient-Stated? Author DH Home Medication Compliance and Understanding Patient Facing Action Plan On track( 018 9:29 AM EST) Jono Madrid, [facility] Note: Patient's specific desired goal: Reduction in psoriasis patches and psoriatic arthritis pain / symptoms. Measured by: pain scale, joints affected, BSA affected by psoriasis Time-frame to meet goal: ongoing - mostly effective at this time documented as of this encounter Visit Diagnoses Not on filedocumented in this encounter Care Teams Alcohol Rubber Relationship Specialty Start Date End Date Doug Valderrama MD [address] [place] [address] PCP - General Family Medicine 02/26/23 documented as of this encounter
--- OUTSIDE RECORDS SUMMARY | 2024-09-23 14:19 | XMS_ITS | Encounter Summary ---
Author Organization [facility] Address [facility] [place] [address] Care Team Providers Care Implementation Analyst Name Role Phone Doug Valderrama MD Primary Care Provider [phone] Encounter Details Date Type Department Care Team (Latest Contact Info) Description 10/23/2023 Travel Social History Tobacco Use Types Packs/Day Years [...] on file documented as of this encounter Plan of Treatment Upcoming Encounters Date Type Department Care Team (Late st Contact Info) Description 12/18/2024 2:00 PM EDT Office Visit Dermatology at [facility] [address] [place] [address] Joyce Snyder MD [facility] [place] [address] documented as of this encounter Goals Goal Patient Goal Type Associated Problems Recent Progress Patient-Stated? Author Home Medication Compliance and Understanding Patient Facing Action Plan On track( 018 9:29 AM EST) No Jono Reed, [facility] Note: Patient's specific desired goal: Reduction in psoriasis patches and psoriatic arthritis pain / symptoms. Measured by: pain scale, joints affected, BSA affected by psoriasis Time-frame to meet goal: ongoing - mostly effective at this time documented as of this encounter Visit Diagnoses Not on filedocumented in this encounter Care Teams Implementation Analyst Relationship Specialty Start Date End Date Doug Valderrama MD [address] [place] [address] PCP - General Family Medicine 02/26/23 documented as of this encounter
--- OUTSIDE RECORDS SUMMARY | 2024-09-23 14:19 | XMS_ITS | Encounter Summary ---
Author Organization [facility] [place] [address] Care Team Providers Care Assembler Chassis Name Role Phone Doug Valderrama MD Primary Care Provider [phone] Encounter Details Date Type Department Care Team (Latest Contact Info) Description 12/04/2023 10:00 AM EDT - 12/04/2023 11:59 PM EDT Hospital Encounter Non-Invasive [place] [address] Discharge Disposition: Home Social History Tobacco Use Types Packs/Day Years [...] on file documented as of this encounter Medications at Time of Discharge Medication Sig Dispensed Refills Start Date End Date gabapentin (Neurontin) 600 mg tablet Take 600 mg by mouth 2 times daily. cholecalciferol (Vitamin D3) 1,000 unit tablet Take by mouth daily. clopidogreL (Plavix) 75 mg tablet Take 75 mg by mouth Daily. 02/07/2023 metoprolol succinate XL (Toprol-XL) 25 mg ER 24 hr tablet Take 25 mg by mouth Daily. 02/07/2023 potassium chloride ER (Klor-Con M) 20 mEq ER micro-encapsulated crystal tablet Take 40 mEq by mouth Daily. 02/07/2023 tiotropium bromide (Spiriva Respimat) 2.5 mcg/actuation Mist INHALE 2 PUFFS BY MOUTH EVERY DAY FOR BREATHING 05/12/2022 torsemide (Demadex) 60 mg tablet Take 60 mg by mouth 2 times daily. 3 tablets in the morning 02/07/2023 doxepin (SINEquan) 25 mg capsule Take 25 mg by mouth daily. omeprazole (PriLOSEC) 20 mg Capsule, Delayed Release(E.C.) Take 20 mg by mouth daily. betamethasone dipropionate (DIPROLENE) 0.05 % Ointment Apply twice a day to bilateral hands and feet as needed. 45 g 1 01/09/2020 betamethasone dipropionate (DIPROLENE) 0.05 % Cream Apply to the affected areas on the back and flanks twice daily, as needed. 45 g 1 09/11/2019 betamethasone dipropionate (DIPROLENE) 0.05 % Lotion Apply to the affected areas on the scalp every other day. [place]-smoothe oil for more severe flares on the scalp. 60 mL 1 06/20/2019 rosuvastatin (CRESTOR) 10 mg TabletIndications:Hyper lipidemia, unspecified hyperlipidemia type Take 1 tablet by mouth daily. 90 tablet 1 06/09/2019 amLODIPine (NORVASC) 5 mg TabletIndications:Essen tial hypertension Take 1 tablet by mouth daily. Take each evening in addition to taking the 10 mg each morning 90 tablet 5 05/22/2019 fluocinolone (DERMA-SMOOTHE) 0.01 % Oil Apply to scalp nightly for 1 week, then decrease to 2x weekly as needed. 120 mL 3 03/17/2019 metFORMIN (GLUCOPHAGE) 500 mg Tablet Take 500 mg by mouth 2 times daily (with meals). 0 02/14/2019 diclofenac (VOLTAREN) 1 % GelIndications:Psoriati c arthritis Apply 2 g topically 4 times daily. 100 g 3 03/07/2018 spironolactone (ALDACTONE) 25 mg Tablet Take 25 mg by mouth daily. hydroCHLOROthiazide (HYDRODIURIL) 25 mg Tablet Take 25 mg by mouth daily. 4 04/20/2017 amLODIPine (NORVASC) 10 mg Tablet TAKE ONE TABLET BY MOUTH EVERY DAY 3 08/08/2016 escitalopram (LEXAPRO) 20 mg Tablet Take 20 mg by mouth daily. traZODone (DESYREL) 100 mg Tablet Take 100 mg by mouth nightly. EPINEPHrine (EPIPEN) 0.3 mg/0.3 mL (1:1,000) Auto-Injector Inject 0.3 mg into the muscle once. Reported on 04/20/2017 losartan (COZAAR) 100 mg Tablet Take 100 mg by mouth daily. acetaminophen (TYLENOL) 500 mg tablet Take 2 tablets by mouth every 6 hours. 30 tablet 09/06/2013 amoxicillin (AMOXIL) 500 mg capsule Take 2,000 mg by mouth See Admin Instructions. Takes before Dental procedure. TAKE 4 TABLETS ONE HOUR BEFORE DENTAL PROCEDURES aspirin 81 mg chewable tablet Take 81 mg by mouth daily. Fenofibric Acid (Trilipix) [address] capsule Take 1 tablet by mouth daily. ranitidine (ZANTAC) 150 mg tablet Take 150 mg by mouth 2 times daily. dupilumab (Dupixent Pen) 300 mg/2 mL Pen Injector Inject the contents of two pens (600 mg) under the skin once initially, then inject the contents of one pen (300 mg) once every 14 days thereafter 4 mL 5 10/23/2023 03/14/2024 triamcinolone (Kenalog) 0.1 % CreamIndications:Atopic dermatitis, unspecified type Apply topically to affected area(s) on the trunk and extremities twice daily for up to 2 weeks. Take 1 week off and then repeat cycle as needed. 454 g 3 05/24/2023 06/10/2024 documented as of this encounter Plan of Treatment Upcoming Encounters Date Type Department Care Team (Late st Contact Info) Description 12/18/2024 2:00 PM EDT Office Visit Dermatology at [facility] [address] [place] [phone] Joyce Snyder MD [facility] [place] [address] documented as of this encounter Goals Goal Patient Goal Type Associated Problems Recent Progress Patient-Stated? Author DH Home Medication Compliance and Understanding Patient Facing Action Plan On track( 018 9:29 AM EST) Jono Madrid, [facility] Note: Patient's specific desired goal: Reduction in psoriasis patches and psoriatic arthritis pain / symptoms. Measured by: pain scale, joints affected, BSA affected by psoriasis Time-frame to meet goal: ongoing - mostly effective at this time documented as of this encounter Procedures Procedure Name Priority Date/Time Associated Diagnosis Comments PRO PM INTERROGATION REMOTE UP TO 90 DAYS Routine 10/08/2023 4:29 AM EST documented in this encounter Results * Cardiac Device Check - Remote (10/08/2023 4:29 AM EST) Anatomical Region Laterality Modality Other 10/08/2023 4:29 AM EST Mehdi Evans MD IMPLANTABLE CARDIAC DEVICE documented in this encounter Visit Diagnoses Not on filedocumented in this encounter Care Teams Assembler Chassis Relationship Specialty Start Date End Date Doug Valderrama MD [address] [place] [address] PCP - General Family Medicine 02/26/23 documented as of this encounter
--- OUTSIDE RECORDS SUMMARY | 2024-09-23 14:19 | XMS_ITS | Encounter Summary ---
Author Organization [facility] Address [facility] [place] [address] Care Team Providers Care Temple Marker Name Role Phone Doug Valderrama MD Primary Care Provider [phone] Encounter Details Date Type Department Care Team (Late st Contact Info) Description 03/14/2024 Refill Dermatology at [facility] [address] [place] [address] Joyce Snyder MD [facility] [place] [address] Social History Tobacco Use Types Packs/Day Years [...] as of this encounter Miscellaneous Notes * Addendum Note - Jose Babb RPH - 03/14/2024 2:35 PM EDTAddended by: JOSE BABB on: 03/14/2024 02:35 PM Modules accepted: Orders documented in this encounter Plan of Treatment Upcoming Encounters Date Type Department Care Team (Late st Contact Info) Description 12/18/2024 2:00 PM EDT Office Visit Dermatology at [address] [place] [address] Joyce Snyder MD [facility] [place] [address] documented as of this encounter Goals Goal Patient Goal Type Associated Problems Recent Progress Patient-Stated? Author DH Home Medication Compliance and Understanding Patient Facing Action Plan On track( 018 9:29 AM EST) Jono Madrid, [facility] Note: Patient's specific desired goal: Reduction in psoriasis patches and psoriatic arthritis pain / symptoms. Measured by: pain scale, joints affected, BSA affected by psoriasis Time-frame to meet goal: ongoing - mostly effective at this time documented as of this encounter Visit Diagnoses Not on filedocumented in this encounter Care Teams Temple Marker Relationship Specialty Start Date End Date Doug Valderrama MD [address] [place] [address] PCP - General Family Medicine 02/26/23 documented as of this encounter
--- OUTSIDE RECORDS SUMMARY | 2024-09-23 14:19 | XMS_ITS | Encounter Summary ---
[place] [address] Care Team Providers Care Seamless Tube Drawer Name Role Phone Doug Valderrama MD Primary Care Provider [phone] Encounter Details Date Type Department Care Team (Latest Contact Info) Description 06/06/2024 Specialty [place] [phone] Manuel Briseno, [facility] Refill Coordination - 28 day recurrence (dupilumab) for Dermatology Social History Tobacco Use Types Packs/Day Years [...] on file documented as of this encounter Progress Notes * Colin Swanson CPHT - 06/06/2024 11:24 AM EDT Clinical Management Plan: Refill Specialty Pharmacy Consultation; Colin Swanson CPHT Comprehensive Medication Management (CMM) Mr. Raghu Rosenthal is a 78 y.o. (1945) male who was contacted in regard to a specialty medication refill reminder. The patient requested a refill of Dupilumab. A review of the medication therapy was performed. The medication was refilled as scheduled, and all medication related questions andconcerns were addressed. The specialty pharmacy staff will follow up with the patient 5-7 days prior to next refill. Was a change made to the Care Plan: No Medication Therapy Recommendations No medication therapy recommendations to display Allergies and Drug intolerance: Allergies Allergen Reactions Venom-Honey Bee Shortness Of Breath Vicodin [Hydrocodone-Acetaminophen] Shortness Of Breath Problems breathing Morphine Sulfate Nausea And Vomiting Arava [Leflunomide] Rash RASH Clarithromycin Hydrocodone Bitartrate Indomethacin Lansoprazole Lipitor [Atorvastatin] Joint pain Other [Unclassified Drug] Nausea And Vomiting and Other (See Comments) IV dyes all extremtites cold Pravastatin Sodium Tetracyclines Medication Reconciliation Discrepancies (compared to [facility] med list) No Review Flowsheet 06/06/2024 5:04 PM Assessment What is the name of the specialty medication you are refilling? Dupixent Are you taking any new medications? No Any new medical conditions? No Any new allergies? No Any new side effects that are bothersome? No Any missed doses since your last fill? 0 How many doses do you have remaining on hand? 0 Would you like a pharmacist to reach out to you to answer any questions? No What date will you need this fill by? 06/17/2024 Adherence: Any missed doses? No Patient understands no changes to current drug regimen were made. Colin Swanson CPHT 06/09/24 7:37 AM documented in this encounter Plan of Treatment Upcoming Encounters Date Type Department Care Team (Late st Contact Info) Description 12/18/2024 2:00 PM EDT Office Visit Dermatology at [place] [address] [place] [address] Joyce Snyder MD [facility] [place] [address] documented as of this encounter Goals Goal Patient Goal Type Associated Problems Recent Progress Patient-Stated? Author DH Home Medication Compliance and Understanding Patient Facing Action Plan On track( 018 9:29 AM EST) No Jono Reed, [facility] Note: Patient's specific desired goal: Reduction in psoriasis patches and psoriatic arthritis pain / symptoms. Measured by: pain scale, joints affected, BSA affected by psoriasis Time-frame to meet goal: ongoing - mostly effective at this time documented as of this encounter Visit Diagnoses Not on filedocumented in this encounter Care Teams Seamless Tube Drawer Relationship Specialty Start Date End Date Doug Valderrama MD [address] [facility] [address] [place] [address] PCP - General Family Medicine 02/26/23 documented as of this encounter
--- OUTSIDE RECORDS SUMMARY | 2024-09-23 14:19 | XMS_ITS | Encounter Summary ---
Author Organization [facility] [place] [address] Care Team Providers Care Staff Design Engineer Name Role Phone Doug Valderrama MD Primary Care Provider [phone] Encounter Details Date Type Department Care Team (Late st Contact Info) Description 10/23/2023 Refill Dermatology at [facility] [address] [place] [address] Joyce Snyder MD [facility] [place] [address] Social History Tobacco Use Types Packs/Day Years [...] 2:00 PM EDT Office Visit Dermatology at [facility] [address] [place] [phone] Joyce Snyder MD [facility] [place] [place] [address] documented as of this encounter Goals Goal Patient Goal Type Associated Problems Recent Progress Patient-Stated? Author DH Home Medication Compliance and Understanding Patient Facing Action Plan On track( 018 9:29 AM EST) Jono Madrid, [facility] Note: Patient's specific desired goal: Reduction in psoriasis patches and psoriatic arthritis pain / symptoms. Measured by: pain scale, joints affected, BSA affected by psoriasis Time-frame to meet goal: ongoing - mostly effective at this time documented as of this encounter Visit Diagnoses Not on filedocumented in this encounter Care Teams Staff Design Engineer Relationship Specialty Start Date End Date Doug Valderrama MD [address] [place] [address] PCP - General Family Medicine 02/26/23 documented as of this encounter
--- OUTSIDE RECORDS SUMMARY | 2024-09-23 14:19 | XMS_ITS | Encounter Summary ---
Author Organization [facility] [place] [address] Care Team Providers Care Fruit Loader Machine Operator Name Role Phone Doug Valderrama MD Primary Care Provider [phone] Encounter Details Date Type Department Care Team (Latest Contact Info) Description 06/01/2024 10:00 AM EDT - 06/01/2024 11:59 PM EDT Hospital Encounter [place] [phone] Discharge Disposition: Home Social History Tobacco Use [...] Sig Dispensed Refills Start Date End Date dupilumab (Dupixent Pen) 300 mg/2 mL Pen Injector Inject 2 mLs subcutaneously every 14 days. 4 mL 5 03/18/2024 gabapentin (Neurontin) 600 mg tablet Take 600 [...] areas on the scalp every other day. [place]-smoothe oil for more severe flares on the scalp. 60 mL 1 06/20/2019 rosuvastatin (CRESTOR) 10 mg TabletIndications:Hype rlipidemia, unspecified hyperlipidemia type Take 1 tablet by mouth daily. 90 tablet 1 06/09/2019 amLODIPine (NORVASC) 5 mg TabletIndications:Esse ntial hypertension Take 1 tablet by mouth daily. [...] meals). 0 02/14/2019 diclofenac (VOLTAREN) 1 % GelIndications:Psoriat ic arthritis Apply 2 g topically 4 times [...] 150 mg by mouth 2 times daily. triamcinolone (Kenalog) 0.1 % CreamIndications:Atopi c dermatitis, unspecified type Apply topically to affected area(s) on the trunk and extremities twice daily for up to 2 weeks. Take 1 week off and then repeat cycle as needed. 454 g 3 05/24/2023 06/10/2024 documented as of this encounter Plan of Treatment Upcoming Encounters Date Type Department Care Team (Late st Contact Info) Description 12/18/2024 2:00 PM EDT Office Visit Dermatology at [facility] [address] [place] [address] Joyce Snyder MD [facility] [place] [address] documented as of this encounter Goals Goal Patient Goal Type Associated Problems Recent Progress Patient-Stated? Author DH Home Medication Compliance and Understanding Patient Facing Action Plan On track( 018 9:29 AM EST) Jono Madrid, [facility] Note: Patient's specific desired goal: Reduction in psoriasis patches and psoriatic arthritis pain / symptoms. Measured by: pain scale, joints affected, BSA affected by psoriasis Time-frame to meet goal: ongoing - mostly effective at this time documented as of this encounter Procedures Procedure Name Priority Date/Time Associated Diagnosis Comments PRO PM INTERROGATION REMOTE UP TO 90 DAYS Routine 04/06/2024 4:22 AM EDT documented in this encounter Results * Cardiac Device Check - Remote (04/06/2024 4:22 AM EDT) Anatomical Region Laterality Modality Other 04/06/2024 4:22 AM EDT Tam Kim MD IMPLANTABLE CARDIAC DEVICE documented in this encounter Visit Diagnoses Not on filedocumented in this encounter Care Teams Fruit Loader Machine Operator Relationship Specialty Start Date End Date Doug Valderrama MD [address] [place] [address] PCP - General Family Medicine 02/26/23 documented as of this encounter
--- OUTSIDE RECORDS SUMMARY | 2024-09-23 14:19 | XMS_ITS | Encounter Summary ---
Author Organization [facility] [place] [address] Care Team Providers Care Net Finisher Name Role Phone Doug Valderrama MD Primary Care Provider [phone] Encounter Details Date Type Department Care Team (Latest Contact Info) Description 09/05/2023 10:00 AM EST - 09/05/2023 11:59 PM EST Hospital Encounter Non-Invasive Cardiology [place] [address] Discharge Disposition: Home Social History [...] Sig Dispensed Refills Start Date End Date cholecalciferol (Vitamin D3) 1,000 unit tablet Take [...] areas on the scalp every other day. [place]-smoothe oil for more severe flares on the scalp. 60 mL 1 06/20/2019 rosuvastatin (CRESTOR) 10 mg TabletIndications:Hyp erlipidemia, unspecified hyperlipidemia type Take 1 tablet by mouth daily. 90 tablet 1 06/09/2019 amLODIPine (NORVASC) 5 mg TabletIndications:Ess ential hypertension Take 1 tablet by mouth daily. [...] meals). 0 02/14/2019 diclofenac (VOLTAREN) 1 % GelIndications:Psoria tic arthritis Apply 2 g topically 4 times [...] 2 times daily. triamcinolone (Kenalog) 0.1 % CreamIndications:Atop ic dermatitis, unspecified type Apply topically to affected area(s) on the trunk and extremities twice daily for up to 2 weeks. Take 1 week off and then repeat cycle as needed. 454 g 3 05/24/2023 06/10/2024 secukinumab (Cosentyx, 2 Syringes,) 150 mg/mL SyringeIndications:Ps oriasis Inject 300 mg subcutaneously every 28 days. 6 Syringe 3 01/09/2020 10/22/2023 secukinumab (Cosentyx, 2 Syringes,) 150 mg/mL Syringe Inject 300 mg subcutaneously once a week. At weeks 0, 1, 2, 3, and 4. 10 Syringe 01/09/2020 10/22/2023 documented as of this encounter Plan of Treatment Upcoming Encounters Date Type Department Care Team (Late st Contact Info) Description 12/18/2024 2:00 PM EDT Office Visit Dermatology at [address] [place] [phone] Joyce Snyder MD [facility] [place] [address] documented as of this encounter Goals Goal Patient Goal Type Associated Problems Recent Progress Patient-Stated? Author DH Home Medication Compliance and Understanding Patient Facing Action Plan On track( 018 9:29 AM EST) No Jono Reed, [facility] Note: Patient's specific desired goal: Reduction in psoriasis patches and psoriatic arthritis pain / symptoms. Measured by: pain scale, joints affected, BSA affected by psoriasis Time-frame to meet goal: ongoing - mostly effective at this time documented as of this encounter Procedures Procedure Name Priority Date/Time Associated Diagnosis Comments PRO PM INTERROGATION REMOTE UP TO 90 DAYS Routine 07/25/2023 5:23 AM EDT documented in this encounter Results * Cardiac Device Check - Remote (07/25/2023 5:23 AM EDT) Anatomical Region Laterality Modality Other 07/25/2023 5:23 AM EDT Ovidio Toledo MD IMPLANTABLE CARDIAC DEVICE documented in this encounter Visit Diagnoses Not on filedocumented in this encounter Care Teams Net Finisher Relationship Specialty Start Date End Date Doug Valderrama MD [address] [place] [address] PCP - General Family Medicine 02/26/23 documented as of this encounter
--- OUTSIDE RECORDS SUMMARY | 2024-09-23 14:19 | XMS_ITS | Encounter Summary ---
Author Organization [facility] Address [facility] [place] [address] Care Team Providers Care Executive Assistant To General Counsel Name Role Phone Doug Valderrama MD Primary Care Provider [phone] [phone] Encounter Details Date Type Department Care Team (Late st Contact Info) Description 02/06/2024 10:00 AM EDT Ext Surgery or Single Event [address] [place] [phone] Lan Otoole MD [facility] [address] Bradycardia Social History Tobacco Use Types Packs/Day Years [...] 2:00 PM EDT Office Visit Dermatology at [facility] [address] [place] [phone] Joyce Snyder MD [facility] [place] [address] documented as of this encounter Goals Goal Patient Goal Type Associated Problems Recent Progress Patient-Stated? Author DH Home Medication Compliance and Understanding Patient Facing Action Plan On track( 018 9:29 AM EST) Jono Madrid, [facility] Note: Patient's specific desired goal: Reduction in psoriasis patches and psoriatic arthritis pain / symptoms. Measured by: pain scale, joints affected, BSA affected by psoriasis Time-frame to meet goal: ongoing - mostly effective at this time documented as of this encounter Visit Diagnoses Diagnosis Bradycardia Other specified cardiac dysrhythmias documented in this encounter Care Teams Executive Assistant To General Counsel Relationship Specialty Start Date End Date Doug Valderrama MD [address] [place] [address] PCP - General Family Medicine 02/26/23 documented as of this encounter
--- OUTSIDE RECORDS SUMMARY | 2024-09-23 14:19 | XMS_ITS | Encounter Summary ---
[place] [address] Care Team Providers Care Cell Repairer Name Role Phone Doug Valderrama MD Primary Care Provider [phone] Reason for Visit * Reason Comments Prior Authorization Dupixent 300mg/2mL S OPN Encounter Details Date Type Department Care Team (Late st Contact Info) Description 10/23/2023 Specialty [place] [phone] Jefe Stern, [facility] Social History Tobacco Use Types Packs/Day Years [...] as of this encounter Progress Notes * Jefe Stern - 10/23/2023 3:22 PM EST [facility], Prior Authorization Approval Medication Name: DUPIXENT 300 MG/2 ML SUBCUTANEOUS PEN INJECTOR Medication ID: Approval Dates: 10/23/2023 to 10/23/2024 Insurance requirements/notes: None Other Notes: None Case/Reference #: Approval notification Received via: [facility] Copay: $ 711.86 Copay assistance: Patient Assistance Referral Copay Notes: Insurance mandated Pharmacy: D- Pharmacy Fillable at [facility]: Yes Patient Notified: To be contacted by [facility] for consult Pharmacy staff will be reaching out to the patient to inform them of their [facility]. If applicable, a pharmacist will speak with the patient to offer our specialty pharmacy services and to arrange delivery of their medication. Jefe Stern 10/23/23 3:26 PM D Specialty Pharmacy, Medication Prior Authorization Submission Patient: Raghu Rosenthal Patient : 1945 Patient Address: [address] [place] [id number] (home) Medication Name: DUPIXENT 300 MG/2 ML SUBCUTANEOUS PEN INJECTOR Medication ID: Subscriber Insurance: [employer] Subscriber Insurance Comment: Fax: Physician: JOYCE SNYDER Physician Comment: Sent Via: PA Not Needed [place]: Ref/Case/PA#: Medication Strength Frequency Requested: Dupixent 300mg/2mL SOPN. Inject the contents of two pens (600mg) SQ for one dose Then inject the contents of one pen (300mg) SQ every 14 days thereafter. Qty/Day Supply: 01/05 New Start: New to Therapy Diagnosis & ICD-10 Code: Atopic Dermatitis L20.9 Patient Notified: Yes Submission Notes: None Jefe Stern 10/23/23 3:26 PM documented in this encounter Plan of Treatment Upcoming Encounters Date Type Department Care Team (Late st Contact Info) Description 12/18/2024 2:00 PM EDT Office Visit Dermatology at [address] [place] [address] Joyce Snyder MD [facility] [place] [address] documented as of this encounter Goals Goal Patient Goal Type Associated Problems Recent Progress Patient-Stated? Author DH Home Medication Compliance and Understanding Patient Facing Action Plan On track( 018 9:29 AM EST) Jono Madrid, [facility] Note: Patient's specific desired goal: Reduction in psoriasis patches and psoriatic arthritis pain / symptoms. Measured by: pain scale, joints affected, BSA affected by psoriasis Time-frame to meet goal: ongoing - mostly effective at this time documented as of this encounter Visit Diagnoses Not on filedocumented in this encounter Care Teams Cell Repairer Relationship Specialty Start Date End Date Doug Valderrama MD [address] [place] [address] PCP - General Family Medicine 02/26/23 documented as of this encounter
--- OUTSIDE RECORDS SUMMARY | 2024-09-23 14:19 | XMS_ITS | Encounter Summary ---
Author Organization [facility] [address] Care Team Providers Care Head Tennis Professional Name Role Phone Doug Valderrama MD Primary Care Provider [phone] Reason for Visit * Reason Comments Patient Education Encounter Details Date Type Department Care Team (Late st Contact Info) Description 10/23/2023 Specialty [place] [phone] Sandip Grant RPH Social History Tobacco Use Types Packs/Day Years [...] as of this encounter Progress Notes * Sandip Grant RPH - 10/23/2023 2:12 PM EST Specialty Pharmacy Initial Consultation; Sandip Grant RPH Comprehensive Medication Management (CMM) Raghu Rosenthal Diagnosis: Atopic Dermatitis Therapy Start Date: TBD - New Start Contact in person or via telephone: In person Mr. Raghu Rosenthal is a 78 y.o. (1945) male who was contacted in regard to specialty medication. Spoke with patient regarding Dupixent. A review of the medication therapy was performed. Is the patient willing to proceed with the Clinical Assessment? Yes Summary and Recommendations: A comprehensive review of Dupixent was discussed with the patient. Topic covered included: Review of patient's dose and indication Common side effects: common cold symptoms, injection site reaction, and eye irritation Warnings/precautions & contraindications: risk of serious infection was discussed and patient is aware to avoid all live vaccines. Patient instructed to reach out to their provider if they experience any change in vision. Storage: patient aware to store medication in the refrigerator and that the medication can be room temperature for up to 14 days Other topics discussed: drug mechanism of action, possible drug and/or food interactions, disposal,and anticipated time to effect Medication and allergy review completed Patient made aware of the prior authorization process and timeline and was provided with [facility] contact information if needed. General overview of self-injection process was provided and patient was encouraged to schedule an injection teaching appointment (in-person or telehealth) if they prefer to have first injection completed with medical oversight Clinic follow-up needed: yes - ongoing clinic follow up and monitoring. Injection teaching if requested Allergies and Drug intolerance: Allergies Allergen Reactions Venom-Honey Bee Shortness Of Breath Vicodin [Hydrocodone-Acetaminophen] Shortness Of Breath Problems breathing Morphine Sulfate Nausea And Vomiting Arava [Leflunomide] Rash RASH Clarithromycin Hydrocodone Bitartrate Indomethacin Lansoprazole Lipitor [Atorvastatin] Joint pain Other [Unclassified Drug] Nausea And Vomiting and Other (See Comments) IV dyes all extremtites cold Pravastatin Sodium Tetracyclines Problem List: Patient Active Problem List Diagnosis Code Depression F32.A Psoriasis L40.9 Obesity E66.9 HTN (hypertension) I10 Hyperlipidemia E78.5 GERD (gastroesophageal reflux disease) K21.9 Sleep apnea G47.30 Former smoker Z87.891 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 Subarachnoid hemorrhage I60.9 Fatty liver K76.0 Pancreatitis K85.90 Cholelithiasis K80.20 Diverticulitis K57.92 Abdominal panniculus E65 Nonrheumatic aortic (valve) stenosis I35.0 CAD (coronary artery disease) I25.10 Psoriatic arthritis L40.50 Bradycardia R00.1 Osteoarthritis of both knees M17.0 Diabetes mellitus E11.9 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 triamcinolone (Kenalog) 0.1 % Cream Apply topically to affected area(s) on the trunk and extremities twice daily for up to 2 weeks. Take 1 week off and then repeat cycle as needed. 454 g 3 cholecalciferol (Vitamin D3) 1,000 unit tablet Take by mouth daily. clopidogreL (Plavix) 75 mg tablet Take 75 mg by mouth Daily. metoprolol succinate XL (Toprol-XL) 25 mg ER 24 hr tablet Take 25 mg by mouth Daily. potassium chloride ER (Klor-Con M) 20 mEq ER micro-encapsulated crystal tablet Take 40 mEq by mouthDaily. tiotropium bromide (Spiriva Respimat) 2.5 mcg/actuation Mist INHALE 2 PUFFS BY MOUTH EVERY DAY FOR BREATHING torsemide (Demadex) 60 mg tablet Take 60 mg by mouth 2 times daily. 3 tablets in the morning doxepin (SINEquan) 25 mg capsule Take 25 mg by mouth daily. omeprazole (PriLOSEC) 20 mg Capsule, Delayed Release(E.C.) Take 20 mg by mouth daily. betamethasone dipropionate (DIPROLENE) 0.05 % Ointment Apply twice a day to bilateral hands and feet as needed. 45 g 1 betamethasone dipropionate (DIPROLENE) 0.05 % Cream Apply to the affected areas on the back and flanks twice daily, as needed. 45 g 1 betamethasone dipropionate (DIPROLENE) 0.05 % Lotion Apply to the affected areas on the scalp everyother day. [place]-smoothe oil for more severe flares on the scalp. 60 mL 1 rosuvastatin (CRESTOR) 10 mg Tablet Take 1 tablet by mouth daily. 90 tablet 1 amLODIPine (NORVASC) 5 mg Tablet Take 1 tablet by mouth daily. Take each evening in addition to taking the 10 mg each morning 90 tablet 5 fluocinolone (DERMA-SMOOTHE) 0.01 % Oil Apply to scalp nightly for 1 week, then decrease to 2x weekly as needed. 120 mL 3 metFORMIN (GLUCOPHAGE) 500 mg Tablet Take 500 mg by mouth 2 times daily (with meals). 0 diclofenac (VOLTAREN) 1 % Gel Apply 2 g topically 4 times daily. 100 g 3 spironolactone (ALDACTONE) 25 mg Tablet Take 25 mg by mouth daily. hydroCHLOROthiazide (HYDRODIURIL) 25 mg Tablet Take 25 mg by mouth daily. 4 amLODIPine (NORVASC) 10 mg Tablet TAKE ONE TABLET BY MOUTH EVERY DAY 3 escitalopram (LEXAPRO) 20 mg Tablet Take 20 mg by mouth daily. traZODone (DESYREL) 100 mg Tablet Take 100 mg by mouth nightly. EPINEPHrine (EPIPEN) 0.3 mg/0.3 mL (1:1,000) Auto-Injector Inject 0.3 mg into the muscle once. Reported on 04/20/2017 losartan (COZAAR) 100 mg Tablet Take 100 mg by mouth daily. acetaminophen (TYLENOL) 500 mg tablet Take 2 tablets by mouth every 6 hours. (Patient taking differently: Take 1,000 mg by mouth as needed.) 30 tablet amoxicillin (AMOXIL) 500 mg capsule Take 2,000 mg by mouth See Admin Instructions. Takes before Dental procedure. TAKE 4 TABLETS ONE HOUR BEFORE DENTAL PROCEDURES aspirin 81 mg chewable tablet Take 81 mg by mouth daily. Fenofibric Acid (Trilipix) [address] capsule Take 1 tablet by mouth daily. ranitidine (ZANTAC) 150 mg tablet Take 150 mg by mouth 2 times daily. No current facility-administered medications for this visit. Most Recent Vitals: Ht Readings from Last 1 Encounters: 03/07/23 172.7 cm (5' 8) Wt Readings from Last 3 Encounters: 03/07/23 107.9 kg (237 lb 14.4 oz) 09/11/19 133.4 kg (294 lb) 03/06/19 (!) 144.7 kg (319 lb) Temp Readings from Last 3 Encounters: 09/11/19 36.4 ??C (97.6 ??F) (Oral) 03/06/19 36.4 ??C (97.6 ??F) 10/08/18 36.7 ??C (98.1 ??F) (Oral) BP Readings from Last 3 Encounters: 03/07/23 123/58 09/11/19 132/65 05/22/19 124/54 Pulse Readings from Last 3 Encounters: 03/07/23 73 09/11/19 (!) 46 05/22/19 52 There is no height or weight on file to calculate BMI. Pertinent Lab values: Lab Results Component Value Date NA 138 02/19/2020 K 4.4 02/19/2020 CL 101 02/19/2020 CO2 25 02/19/2020 BUN 38 (H) 02/19/2020 CREATININE 1.62 (H) 02/19/2020 GLUCOSE 126 02/19/2020 GLUCFASTING 153 (H) 09/03/2013 CALCIUM 9.7 02/19/2020 Lab Results Component Value Date ALT 26 02/19/2020 AST 46 (H) 02/19/2020 ALKPHOS 52 02/19/2020 BILITOT 0.4 02/19/2020 BILIDIR 0.2 09/11/2019 ALBUMIN 3.9 02/19/2020 PROT 6.7 02/19/2020 Lab Results Component Value Date WBC 5.0 02/19/2020 HGB 12.1 (L) 02/19/2020 HCT 38.8 (L) 02/19/2020 MCV 96.5 (H) 02/19/2020 PLATELET 164 02/19/2020 No results found for: HA1C Immunization History Administered Date(s) Administered Diphtheria,pertussis,tetanus 10/03/2011 Influenza Vaccine w/Preservative, Split 07/17/2012, 06/30/2014, 07/13/2015 Influenza Vaccine, Whole 07/14/2005, 08/10/2006, 07/16/2008 Pneumococcal Polyvalent 23 09/19/2006, 10/03/2011 Td, adult 09/24/1994, 05/01/2006 Zoster Vaccine, Live 11/10/2012 Assessment and Recommendations: Patient Counseling Patient accepted offer to addictions counselor: select all, adherence/missed doses, cost of medications/cost implications, doses and administration, possible drug/OTC drug and food interactions, possible adverse side effects and management, pharmacy contact information, lab monitoring/follow up, possible drug/Rx drug interactions, safe handling, storage, and disposal, therapeutic rationale Medication Management Summary Topics discussed: reviewed medication changes since last visit, medication safety precautions education provided, drug interaction education provided to patient, safe handling, storage, and disposal discussed, possible adverse effects and management discussed, lab monitoring and follow-up discussed, cost of medications and cost implications discussed, adherence and missed doses discussed, effects of medication in patients over 65 years of age discussed, health goals discussed, monitoring medication discussed, over the counter products discussed, preventative care discussed, reminder to refill or cloth picker medication discussed, self-monitoring discussed, start medication discussed, timing of medications discussed, vaccination discussed, referral needs discussed Treatment Outcomes 10/23/2023 1414 Disease progression: Stable Patient Overall Status: Stable Reviewed in detail with patient: Dose appropriateness based on recommended standard dosing Current medication list including OTC medications Medication and disease problems Allergies Comorbid conditions/ Problem List Past adverse events if any Special needs of the patient including physical and cognitive limitations Goals of therapy and management strategies Warnings, precautions, and contraindications Side effects Drug-drug and drug-food interactions Administration instructions including dose, frequency and method Handling, storage, and disposal Verifying expiration dates on products before use Rotating medication inventory to use oldest product first Relevant lab data Treatments impact on disease Dose appropriateness based on recommended standard dosing schedule, including any variations from FDA approved dosing Patient verbalizes understanding and is able to read-back instructions on self-administration/injection, proper storage, drug stability, importance of adherence and management strategies, side effect avoidance and mitigation strategies, and interruptions in therapy: Yes Patient is aware a licensed pharmacist is available 24 hours a day, 7 days a week to discuss medication-related questions or concerns: Yes Patient verbalizes understanding of the common side effect profile of their medication. The patient is able to call 911 or seek urgent care if signs/symptoms of allergy or harmful adverse reactions occur: Yes Additional care/services needed: No Additional equipment/supplies required: No Patient satisfied with care/services provided: Yes Specialty Assessment: Physical and Cognitive Assessment: Functional limitations identified: No Cognitive limitations identified: No Concern regarding orientation/memory: No Concern with reasoning/judgement: No Is patient a fall risk: No Social Assessment: Does patient have a primary critical care physician: No Does patient have an emergency contact on file: Yes Does patient need referral to psychiatric social worker supervisor: No Does patient need referral to advocacy group: No Home Health Assessment: Is the patient in a safe home environment?: Yes Is the patient able to store their medication as directed?: Yes Does the patient have a support network at home?: Yes Reviewed potential home safety hazards with patient: Yes Economic Assessment: Patient is agreeable to medication copay: Other (see comments) (Comment: TBD - New Start) Welcome Packet and Rights and Responsibilities: Specialty Med Adherence Patient Demonstrates Understanding of Importance of Adherence: Yes Educational Information or Adherence Tools Provided: Yes Therapy Assessment: Current Medication Dosing/Route/Frequency: Dupixent 300mg/2mL Pens Inject the contents of two pens (600 mg) under the skin once initially, then inject the contents of one pen (300 mg) once every 14 days thereafter Appropriate Therapy: Yes Current Affected Areas: trunk, proximal extremities Total BSA involved: 30% Recent Skin Exacerbations/Flaring: yes - severe itch Recent Topical Corticosteroid Use: yes - triamcinolone Relapsing/Remitting Factors: no Diagnosis of Psoriatic Arthritis: No Patient's Problems/Needs: Additional treatment for uncontrolled atopic dermatitis Expected Outcome: Skin clearing and reduction of symptoms Treatment Outcome: Therapy initiated Patient's goals: Patient's specific desired goal: Skin clearance and reduction of symptoms, specifically reduction of itch and affected body surface area Measured by: Patient reported s/sx and provider physical exam Time-frame to meet goal: 6-12 months On a scale of 1-10, what is the patient's overall confidence level with administering this medication? Not assessed Monitoring requirements for prescribed medication: Monitor for adverse effects, ocular side effects On a scale of 1-10 the patient rates their quality of life: Not assessed Care Plan Reviewed and Approved by both Pharmacist and Patient: Yes Interventions (if applicable): No N/A Pharmacist follow-up needed: Yes Delivery Method: Delivery Patient understands no changes to current drug regimen were made at the appointment and that [facility] (summary located at top of note) for provider review and follow up. Sandip Grant RPH 10/23/23 2:14 PM documented in this encounter Plan of Treatment Upcoming Encounters Date Type Department Care Team (Late st Contact Info) Description 12/18/2024 2:00 PM EDT Office Visit Dermatology at [address] [place] [address] Joyce Snyder MD [facility] [place] [place] [address] documented as of this encounter Goals Goal Patient Goal Type Associated Problems Recent Progress Patient-Stated? Author DH Home Medication Compliance and Understanding Patient Facing Action Plan On track( 018 9:29 AM EST) Jono Madrid, [facility] Note: Patient's specific desired goal: Reduction in psoriasis patches and psoriatic arthritis pain / symptoms. Measured by: pain scale, joints affected, BSA affected by psoriasis Time-frame to meet goal: ongoing - mostly effective at this time documented as of this encounter Visit Diagnoses Diagnosis Atopic dermatitis, unspecified type documented in this encounter Care Teams Head Tennis Professional Relationship Specialty Start Date End Date Doug Valderrama MD [address] [place] [address] PCP - General Family Medicine 02/26/23 documented as of this encounter
--- OUTSIDE RECORDS SUMMARY | 2024-09-23 14:19 | XMS_ITS | Encounter Summary ---
Author Organization [facility] [place] [address] Care Team Providers Care Mine Boss Name Role Phone Doug Valderrama MD Primary Care Provider [phone] Encounter Details Date Type Department Care Team (Latest Contact Info) Description 02/14/2024 Specialty [place] [phone] Santa Saravia RPH Refill Coordination - 28 day recurrence (dupilumab) [...] as of this encounter Progress Notes * Santa Saravia RPH - 02/14/2024 12:50 PM EDT Clinical Management Plan: Refill Specialty Pharmacy Consultation; Santa Saravia RPH Comprehensive Medication Management (CMM) Mr. Raghu Rosenthal is a 78 y.o. (1945) male who was contacted in regard to a specialty medication refill reminder. The patient requested a refill of Dupixent. A review of the medication therapy was performed. The medication was refilled as scheduled, and all medication related questions and concerns were addressed. The specialty pharmacy staff will follow up with the patient 5-7 days priorto next refill. Was a change made to [...] Sodium Tetracyclines Medication Reconciliation Discrepancies (compared to [facility] med list) No Review Flowsheet 02/18/2024 10:48 AM Assessment What is the name of the specialty medication you are refilling? Dupixent Are you taking any new medications? No Any new medical conditions? No Any new allergies? No Any missed doses since your last fill? 0 Any new side effects that are bothersome? No What date will you need this fill by? 02/25/2024 Adherence: Any missed doses? No Patient understands no changes to current drug regimen were made. Santa Saravia RPH 02/19/24 9:52 AM documented in this encounter Plan of Treatment Upcoming Encounters Date Type Department Care Team (Late st Contact Info) Description 12/18/2024 2:00 PM EDT Office Visit Dermatology at [address] [phone] Joyce Snyder MD [facility] [place] [place] [address] documented as of this encounter Goals Goal Patient Goal Type Associated Problems Recent Progress Patient-Stated? Author DH Home Medication Compliance and Understanding Patient Facing Action Plan On track( 018 9:29 AM EST) No Jono Reed [facility] Note: Patient's specific desired goal: Reduction in psoriasis patches and psoriatic arthritis pain / symptoms. Measured by: pain scale, joints affected, BSA affected by psoriasis Time-frame to meet goal: ongoing - mostly effective at this time documented as of this encounter Visit Diagnoses Diagnosis Atopic dermatitis, unspecified type documented in this encounter Care Teams Mine Boss Relationship Specialty Start Date End Date Doug Valderrama MD [address] [place] [address] PCP - General Family Medicine 02/26/23 documented as of this encounter
--- OUTSIDE RECORDS SUMMARY | 2024-09-23 14:19 | XMS_ITS | Encounter Summary ---
Author Organization [facility] Address [facility] [place] [address] Care Team Providers Care Senior Quality Engineer Name Role Phone Doug Valderrama MD Primary Care Provider [phone] Encounter Details Date Type Department Care Team (Late st Contact Info) Description 10/23/2023 1:15 PM EST Office Visit Dermatology at [address] [address] Joyce Snyder MD [facility] [place] [address] Atopic dermatitis, unspecified type Social History Tobacco Use Types Packs/Day Years [...] as of this encounter Progress Notes * Joyce Snyder MD - 10/23/2023 1:15 PM EST Images from the original note were not included. DEPARTMENT OF DERMATOLOGY Medical Dermatology Clinic Provider: Joyce Snyder MD Patient's preferred name Rodney Preferred contact method for results []Phone []myD-H []Letter Detailed phone message OK? Yes Are there any other people with whom we may discuss your care? 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 Patient returns to clinic today for eczemafollow up: - Patient reports of feeling constantly itchy on trunk and extremities. Patient takes Gabapentin 600mg BID and often times takes more as needed due to the itch sensation being so severe. Rodney moralesapoloniajamal apply topical Triamcinolone cream as prescribed. Using all the time without full relief. Rash has been ongoing despite treatment. - He explains that he has been bruising very easily as well. Patient does take a low dose ASA daily. Last visit at Dermatology: 05/24/2023 Last visit with this provider: 05/24/2023 Medications: Reviewed in eD-H Allergies: Reviewed in eD-H Skin Examination: Full skin examination: Patient asked to undress to their comfort level. Verbalized that the provider???s preference is that the patient remove all clothing and that the provider will not examine areas patient elects to keep covered. Patient elects to keep underwear on and have the following examined: scalp, hair, face, ears, neck, chest, axillae, abdomen, back, and upper and lower extremities. Genitalia and buttocks were not examined. 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 BSA ~30% - Skin findings, prior biopsy reports, outside biopsy letter, prior office notes, and history all reviewed - prior bx showing Atopic dermatitis per outside letter - pathology report not available at the time of visit - Of note, he has a reported history of psoriasis - his skin today and his prior biopsies are not suggestive of psoriasis. His exam today is consistent with an eczematous dermatitis. Outside pathology reportedly c/w atopic dermatitis - I would like to start by obtaining the report and consider obtaining slides for second read by Dermatopathology. Ddx in the past included CTCL; prior bx was notsufficient to dx this but additional bx should be considered. Ddx today also includes stasis dermatitis with id reaction. - We discussed the chronic nature of eczematous/atopic dermatitis and the need to induce remission,maintain control, and rescue flares quickly. - s/p multiple courses of prednisone with relief but recurrence, most recently in April 2023 Plan: - Continue washing with Dove Soap. Strongly encourage applying bland emollient or moisturizer. (Cetaphil or CeraVe cream) to all areas of clear skin immediately after bathing. Sensitive skin care handout given - Continue Rx: Gabapentin 300mg BID as needed as previously prescribed by outside physician (has trialed doxepin up to 50mg and OTC antihistamine without relief) - Continue Rx triamcinolone (Kenalog) 0.1% cream: Apply topically to affected area(s) on the trunk and extremities twice daily for up to 2 weeks. Take 1 week off and then repeat cycle as needed. - Suggested cold compresses and/or OTC Sarna Sensitive as options for itch relief PRN -- Revisited the option to add dupilumab to treat given minimal relief with topical. Discussed risks of injection: Ocular side effects and hypersensitivity reactions. - Explained that it is a new medication, recently approved, and we may learn more about side effects over time. - Reviewed necessity of lab monitoring and routine follow ups. -- Decision made to proceed with dupilumab therapy, a human monoclonal antibody that targets IL-4 receptor alpha and blocks signaling from IL-4 and IL-13, which is are velasco molecules involved in the inflammatory process of atopic dermatitis. -- RX: Dupilumab Initial dose is 600mg SQ (divided in 2 doses injected into 2 separate sites) followed by 300mg SQ every 2 weeks. Remove from fridge for at least 45 min prior to injection. - No specific labs are indicated prior to initiation as per the FDA, but will check basic labs, hepB/hepC and quant gold. - The most common side effects include injection site reactions, conjunctivitis, blepharitis, keratitis, eye pruritus, dry eye, oral herpes reactivation, or other HSV infxns. - Rare side effects include generalized urticaria, serum sickness or serum sickness-like rxn (<1%). - Dupilumab can alter YAJ165 enzymes via change in interleukin concentrations so monitor for effects especially with medications that have a narrow therapeutic window (ie warfarin) or affect drug concentrations (ie cyclosporine). - In the clinical trials ~40% of patients were clear or almost clear, ~55% had a reduction of pruritus, and 85% had a reduction of EASI score by 50% at 12 weeks of therapy. Quality of life scores were improved for most patients. - No live vaccines. - Recommended a skin biopsy. After discussion of potential risks (scarring, bleeding, infection), patient agreed to proceed. - Patient denies known allergies to lidocaine and epinephrine. Procedure: Skin punch biopsy. Location: Right posterior shoulder Time of procedure: 1:55 PM Discussed indications for the procedure and expectations including risks and benefits. Verbal consent obtained. Time out performed. Skin prepped with alcohol. Local anesthesia with 1% xylocaine, 1/100,000 epinephrine. A 5 mm punch biopsy to the level of the subcutis was performed. Specimen submitted to Pathology. Wound closed with monofilament suture. There were no complications; patient tolerated the procedure well. Wound dressed. Post-procedure expectations (including discomfort management), wound care and activity restrictions reviewed. - Follow-up based on pathology results. - Suture removal: 12-14 days. Other: N/A RTC: 4-5 month atopic dermatitis follow up // encouraged pt to reach out or return sooner as needed []Note routed to pathology secretary []Recall placed in scheduling system [x]Appointment scheduled at checkout Scribe attestation: WILBER Kenney has performed the documentation for this encounter in thepresence of and acting as a scribe for Joyce Snyder MD. I performed the above scribed service and agree with the accuracy of the documentation in this encounter. Reviewed and signed by: Joyce Snyder MD Dermatology [facility] * Joyce Snyder MD - 10/23/2023 1:15 PM EST Skin biopsy results reviewed. C/w suspected atopic dermatitis vs other eczema. Continue with plan to start dupilumab. [id number] Location: [facility] The signing pathologist has (i) examined the relevant preparation(s) for the specimen(s) and (ii) rendered or confirmed the diagnosis(es). Surgical Pathology DIAGNOSIS Right posterior shoulder, skin punch biopsy: - Acanthosis with superficial perivascular lymphocytic infiltrate and eosinophils (see discussion) Electronically signed by: Lily Richter MD Verified: 11/04/2023 20:03 Dermatopathologist Performed at: -[facility] Dept. of [place]ology, [place] [address] Toll Operator: Dav Sagastume MD, FCAP, CLIA Certificate: [id number] DISCUSSION Sections show acanthosis, serum-cursted parakeratosis, exocytosis of lymphocytes, and a superficial perivascular lymphocytic infiltrate with eosinophils. No fungal hyphae are detected with a PAS stain . The differential diagnosis could include subacute/ chronic eczemas, allergic contact dermatitis, an id reaction, or a spongiotic drug eruption. Clinicopathologic correlation is recommended. documented in this encounter Plan of Treatment Upcoming Encounters Date Type Department Care Team (Late st Contact Info) Description 12/18/2024 2:00 PM EDT Office Visit Dermatology at [facility] [address] [place] [address] Joyce Snyder MD [facility] [place] [address] documented as of this encounter Goals Goal Patient Goal Type Associated Problems Recent Progress Patient-Stated? Author [facility] Medication Compliance and Understanding Patient Facing Action Plan On track( 018 9:29 AM EST) No Jono Reed, [facility] Note: Patient's specific desired goal: Reduction in psoriasis patches and psoriatic arthritis pain / symptoms. Measured by: pain scale, joints affected, BSA affected by psoriasis Time-frame to meet goal: ongoing - mostly effective at this time documented as of this encounter Procedures Procedure Name Priority Date/Time Associated Diagnosis Comments SPECIMEN TO PATHOLOGY Routine 10/23/2023 2:22 PM EST Atopic dermatitis, unspecified type SURGICAL PATHOLOGY REPORT Routine 10/23/2023 1:55 PM EST documented in this encounter Results * Specimen to Pathology (10/23/2023 2:22 PM EST) AP Specimen 10/23/2023 2:22 PM EST 10/23/2023 2:22 PM EST Narrative [facility] - 10/23/2023 2:22 PM EST Specimen requisition ordered. ??Separate Pathology report to follow Joyce Snyder MD PATHOLOGY/CYTOLOGY O RDERATYRONE Performing Organization Address City/State/[facility] Co de Phone Number [facility] [address] * Surgical Pathology Report (10/23/2023 1:55 PM EST) Final Diagnosis [id number] ? Location: [facility] The signing pathologist has (i) examined the relevant preparation(s) for the specimen(s) and (ii) rendered or confirmed the diagnosis(es). . ?Surgical Pathology DIAGNOSIS Right posterior shoulder, skin punch biopsy: - Acanthosis with superficial perivascular lymphocytic infiltrate and eosinophils ??(see discussion) Electronically signed by: ?Lily Richter MD Verified: ??11/04/2023 20:03 ??Dermatopathologist Performed at: ??-[facility] Dept. of Pathology, [place] [address] Toll Operator: Dav Sagastume MD, FCAP, ??CLIA Certificate: [id number] DISCUSSION Sections show acanthosis, serum-cursted parakeratosis, exocytosis of lymphocytes, and a superficial perivascular lymphocytic infiltrate with eosinophils. No fungal hyphae are detected with a PAS stain ??. The differential diagnosis could include subacute/ chronic eczemas, allergic contact dermatitis, an id reaction, or a spongiotic drug eruption. Clinicopathologic correlation is recommended. ADDITIONAL STUDIES Multiple step-leveled sections are examined. SPECIMEN(S) SUBMITTED A - Right posterior shoulder, skin punch (1) CLINICAL INFORMATION Atopic dermatitis versus other-pink scaly plaques on the trunk and proximal extremities, longstanding history of dermatitis with outside biopsy (not available) reportedly showing atopic dermatitis SPECIMEN PROCESSING A - Labeled/Fixative: Patient demographics, formalin. Quantity/Size: ??Single, 0.5 cm in diameter, excised to a depth of 0.7 cm. Tissue Description: Harper-pink skin punch. Sections/Processing: Bisected and entirely submitted in 1 cassette labeled A1. ??ajw 11/04/2023 8:03 PM EST [facility] SPECIMEN FROM SKIN / Unknown 10/23/2023 1:55 PM EST 10/23/2023 1:55 PM EST Joyce Snyder MD PATHOLOGY/CYTOLOGY O RDERABLES [facility] [address] [place] [address] documented in this encounter Visit Diagnoses Diagnosis Atopic dermatitis, unspecified type documented in this encounter Care Teams Senior Quality Engineer Relationship Specialty Start Date End Date Doug Valderrama MD [address] [place] [address] PCP - General Family Medicine 02/26/23 documented as of this encounter
--- OUTSIDE RECORDS SUMMARY | 2024-09-23 14:19 | XMS_ITS | Encounter Summary ---
Author Organization [facility] [place] [address] Care Team Providers Care Transmission And Coordination Engineer Name Role Phone Doug Valderrama MD Primary Care Provider [phone] Encounter Details Date Type Department Care Team (Latest Contact Info) Description 04/11/2024 Specialty [place] [phone] Manuel Briseno RPH Refill Coordination - 28 day recurrence [...] as of this encounter Progress Notes * Manuel Briseno RPH - 04/11/2024 1:29 PM EDT Images from the original note were not included. Clinical Management Plan: Refill Specialty Pharmacy Consultation; Manuel Briseno RPH Comprehensive Medication Management (CMM) Mr. Raghu [...] a change made to the Care Plan: no If yes, should the medication be held: No Assessment and Recommendations: Allergies and Drug intolerance: Allergies Allergen Reactions Venom-Honey Bee Shortness Of Breath Vicodin [Hydrocodone-Acetaminophen] Shortness Of Breath Problems breathing Morphine Sulfate Nausea And Vomiting Arava [Leflunomide] Rash RASH Clarithromycin Hydrocodone Bitartrate Indomethacin Lansoprazole Lipitor [Atorvastatin] Joint pain Other [Unclassified Drug] Nausea And Vomiting and Other (See Comments) IV dyes all extremtites cold Pravastatin Sodium Tetracyclines Medication Reconciliation Discrepancies (compared to [facility] med list) -started lisinopril Review Flowsheet 04/13/2024 6:18 PM Assessment What is the name of the specialty medication you are refilling? Dupixent Are you taking any new medications? Yes Please explain Lisinopril Any new medical conditions? No Any new allergies? No Any new side effects that are bothersome? No Any missed doses since your last fill? 0 How many doses do you have remaining on hand? 0 Would you like a pharmacist to reach out to you to answer any questions? No What date will you need this fill by? 04/21/2024 Medication Therapy Recommendations No medication therapy recommendations to display Pt understands no changes to current drug regimen were made at the appointment and that [facility] is providing recommendations (summary located at top of note) for provider review and follow up. Manuel Briseno RPH 04/14/24 11:59 AM documented in this encounter Plan of Treatment Upcoming Encounters Date Type Department Care Team (Late st Contact Info) Description 12/18/2024 2:00 PM EDT Office Visit Dermatology at [facility] [address] [place] [address] Joyce Snyder MD [facility] [place] [address] documented as of this encounter Goals Goal Patient Goal Type Associated Problems Recent Progress Patient-Stated? Author [facility] Medication Compliance and Understanding Patient Facing Action Plan On track( 018 9:29 AM EST) Jono [place], [facility] Note: Patient's specific desired goal: Reduction in psoriasis patches and psoriatic arthritis pain / symptoms. Measured by: pain scale, joints affected, BSA affected by psoriasis Time-frame to meet goal: ongoing - mostly effective at this time documented as of this encounter Visit Diagnoses Not on filedocumented in this encounter Care Teams Transmission And Coordination Engineer Relationship Specialty Start Date End Date Doug Valderrama MD [address] [place] [address] PCP - General Family Medicine 02/26/23 documented as of this encounter
--- OUTSIDE RECORDS SUMMARY | 2024-09-23 14:19 | XMS_ITS | Encounter Summary ---
Author Organization [facility] Address [facility] [address] [facility] [place] [address] Care Team Providers Care Parts Counter Specialist Name Role Phone Doug Valderrama MD Primary Care Provider [phone] Encounter Details Date Type Department Care Team (Late st Contact Info) Description 10/22/2023 [place] [address] [place], [facility] Social History Tobacco Use Types Packs/Day [...] 2:00 PM EDT Office Visit Dermatology at [facility] [address] [place] [address] Joyce Snyder MD [facility] [place] [address] documented as of this encounter Goals Goal Patient Goal Type Associated Problems Recent Progress Patient-Stated? Author [facility] Home Medication Compliance and Understanding Patient Facing Action Plan On track( 018 9:29 AM EST) No Jono Reed, [facility] Note: Patient's specific desired goal: Reduction in psoriasis patches and psoriatic arthritis pain / symptoms. Measured by: pain scale, joints affected, BSA affected by psoriasis Time-frame to meet goal: ongoing - mostly effective at this time documented as of this encounter Visit Diagnoses Not on filedocumented in this encounter Care Teams Parts Counter Specialist Relationship Specialty Start Date End Date Doug Valderrama MD [address] [place] [address] PCP - General Family Medicine 02/26/23 documented as of this encounter
--- OUTSIDE RECORDS SUMMARY | 2024-09-23 14:19 | XMS_ITS | Encounter Summary ---
Author Organization [facility] [place] [address] Care Team Providers Care Mechanical Maintenance Engineer Name Role Phone Doug Valderrama MD Primary Care Provider [phone] Encounter Details Date Type Department Care Team (Latest Contact Info) Description 03/03/2024 10:00 AM EDT - 03/03/2024 11:59 PM EDT Hospital Encounter Non-Invasive [place] [address] Discharge Disposition: Home Social History [...] areas on the scalp every other day. [place] Christoval-smoothe oil for more severe flares on the [...] 2:00 PM EDT Office Visit Dermatology at [facility] [address] [place] [phone] Joyce Snyder MD [facility] [place] [address] documented as of this encounter Goals Goal Patient Goal Type Associated Problems Recent Progress Patient-Stated? Author DH Home Medication Compliance and Understanding Patient Facing Action Plan On track( 018 9:29 AM EST) Jono Madrid, [facility] Note: Patient's specific desired goal: Reduction in psoriasis patches and psoriatic arthritis pain / symptoms. Measured by: pain scale, joints affected, BSA affected by psoriasis Time-frame to meet goal: ongoing - mostly effective at this time documented as of this encounter Procedures Procedure Name Priority Date/Time Associated Diagnosis Comments PRO PM INTERROGATION REMOTE UP TO 90 DAYS Routine 01/07/2024 4:56 AM EDT documented in this encounter Results * Cardiac Device Check - Remote (01/07/2024 4:56 AM EDT) Anatomical Region Laterality Modality Other 01/07/2024 4:56 AM EDT Tam Kim MD IMPLANTABLE CARDIAC DEVICE documented in this encounter Visit Diagnoses Not on filedocumented in this encounter Care Teams Mechanical Maintenance Engineer Relationship Specialty Start Date End Date Doug Valderrama MD [address] [place] [address] [address] [place] [address] PCP - General Family Medicine 02/26/23 documented as of this encounter
--- OUTSIDE RECORDS SUMMARY | 2024-09-23 14:19 | XMS_ITS | Encounter Summary ---
Author Organization [facility] [place] [address] Care Team Providers Care Rubble Placer Name Role Phone Doug Valderrama MD Primary Care Provider [phone] Reason for Visit * Reason Onset Date Comments Appointment 08/01/2023 Encounter Details Date Type Department Care Team (Late st Contact Info) Description 08/01/2023 [place] [phone] Fred Marquez PA [facility] [place] [address] Appointment Social History Tobacco Use Types Packs/Day Years [...] encounter Miscellaneous Notes * Telephone Encounter - Nilson Siegel - 08/01/2023 2:47 PM ESTSummary: Recall Bumped We have been unable to contact patient to schedule reminder appointment for BILAT ROBERT R 12/10/01, L 07/14/08 XR with Fred Marquez. Recall bumped out to 03/24/2024 documented in this encounter Plan of Treatment Upcoming Encounters Date Type Department Care Team (Late st Contact Info) Description 12/18/2024 2:00 PM EDT Office Visit Dermatology at [facility] [address] [place] [address] Joyce Snyder MD [facility] [place] [address] documented as of this encounter Goals Goal Patient Goal Type Associated Problems Recent Progress Patient-Stated? Author [facility] Home Medication Compliance and Understanding Patient Facing Action Plan On track( 018 9:29 AM EST) Jono Madrid, [facility] Note: Patient's specific desired goal: Reduction in psoriasis patches and psoriatic arthritis pain / symptoms. Measured by: pain scale, joints affected, BSA affected by psoriasis Time-frame to meet goal: ongoing - mostly effective at this time documented as of this encounter Visit Diagnoses Not on filedocumented in this encounter Care Teams Rubble Placer Relationship Specialty Start Date End Date Doug Valderrama MD [address] [place] [address] PCP - General Family Medicine 02/26/23 documented as of this encounter
--- OUTSIDE RECORDS SUMMARY | 2024-09-23 14:19 | XMS_ITS | Encounter Summary ---
[place] [address] Care Team Providers Care Application Developer Manager Name Role Phone Doug Valderrama MD Primary Care Provider [phone] Encounter Details Date Type Department Care Team (Late st Contact Info) Description 10/24/2023 Specialty [place] [id number] Nava Humphrey, RICKEY Social History Tobacco Use Types Packs/Day Years [...] as of this encounter Progress Notes * Nava Humphrey CPHT - 10/24/2023 8:48 AM EST [facility] Assistance Outreach The Specialty Medication Access Team received a referral to work with Raghu Rosenthal to complete an application to the armored car guard's assistance program for their specialty medication, Dupixent. [facility] left message for patient to provide the armored car guard application status. [facility] will follow-up with the patient in 3 days to see if they need any additional guidance. Summary of conversations and next steps: LVM FOR PT RE: DUPIXENT APPLICATION - HOW WOULD PT LIKE TORECEIVE APPLICATION? Nava Humphrey CPHT 10/24/23 8:48 AM * Gloria Mckeon Susan - 10/24/2023 8:48 AM EST [facility] Assistance Outreach The Specialty Medication Access Team received a referral to work with Raghu Rosenthal to complete an application to the armored car guard's assistance program for their specialty medication, Dupixent. [facility] left message for patient to provide the armored car guard application status. [facility] will follow-up with the patient in 3 days to see if they need any additional guidance. Summary of conversations and next steps: CC: SENT PATIENT [facility] MESSAGE SEEING IF HE RECEIVED THE APPLICATION I EMAILED TO HIM ON 10/29 AND IF HE HAS ANY QUESTIONS AT THIS TIME. Gloria Mckeon 11/01/23 9:11 AM * Gloria Mckeon - 10/24/2023 8:48 AM EST [facility] Assistance Submission The Specialty Medication Access Team has looked into copay assistance for the following patient, but was unable to locate a copay card or brian foundation with available funding. The Specialty Medication Access Team will work with the patient to complete an application to the armored car guard's assistance program. The Specialty Medication Access Team will follow up with the patient throughout the process. Patient: Raghu Rosenthal : 1945 Medication: DUPIXENT 300 MG/2 ML SUBCUTANEOUS PEN INJECTOR Order ID: [id number] Directions: Dupixent 300mg/2mL SOPN. Inject the contents of two pens (600mg) SQ for one dose Then inject the contents of one pen (300mg) SQ every 14 days thereafter. Dispense Quantity: 01/05 # of Refills: NA Prescriber Name: HEBER SNYDER Diagnosis/ICD-10 code: Atopic Dermatitis L20.9 Insurance: [employer] [place] Medicare Part D?: Yes [place] Approved? Yes Current copay is: $$$ Patient notified of copay and attests that copay is unaffordable: Yes [facility]: [employer] Adolescent Specialist: JOSE Phone number: Fax number: Primary: Alt: [phone] Patient documents submitted (per [facility] guidelines - may vary): Copies of insurance cards: Yes Income verification documents: Yes Signed Patient Enrollment Form: Yes Pharmacy receipts (important for manufacturers requesting patient to spend 3% income on pharmacy expenses): No Additional Comments: Gloria Mckeon 11/06/23 8:39 AM Next Review Date: * Gloria Mckeon - 10/24/2023 8:48 AM EST [facility] Assistance Outreach The Specialty Medication Access Team received a referral to work with Raghu Rosenthal to complete an application to the armored car guard's assistance program for their specialty medication, Dupixent. [facility] left message for patient to provide the armored car guard application status. [facility] will follow-up with the patient in 3 days to see if they need any additional guidance. Summary of conversations and next steps: CC: SENT PATIENT [facility] MESSAGE LETTING HIM KNOW WE RECEIVED HIS APPLICATION FOR DUPIXENT AND OTHER DOCUMENTS. THAT WE HAVE FAXED HIS APPLICATION TO [facility] NOW AND WILL FOLLOW UP ON SUNDAY TO CHECK THE STATUS. Gloria Mckeon 11/06/23 8:44 AM * Nava Humphrey CPHT - 10/24/2023 8:48 AM EST [facility] Assistance Outreach The Specialty Medication Access Team received a referral to work with Raghu Rosenthal to complete an application to the armored car guard's assistance program for their specialty medication, Dupixent. [facility] spoke to armored car guard. [facility] name: [employer] to provide the armored car guard application status. The armored car guard application is still under review. The Specialty Medication Access Team will follow-up with the armored car guard in 3 days to check on application status. Summary of conversations and next steps: S/W MFR - REP SAID THEY ARE IN PROCESS TO START CONDUCTINGBI, IT HAS NOT BEEN STARTED YET THOUGH Nava Humphrey CPHT 11/08/23 12:33 PM * Linda Gloria A - 10/24/2023 8:48 AM EST [facility] Assistance Outreach The Specialty Medication Access Team received a referral to work with Raghu Rosenthal to complete an application to the armored car guard's assistance program for their specialty medication, Dupixent. [facility] spoke to armored car guard. [facility] name: [employer] to provide the armored car guard application status. The armored car guard application is still under review. The Specialty Medication Access Team will follow-up with the armored car guard in 3 days to check on application status. Summary of conversations and next steps: S/W MFR: SECTION 3 PAGE 1 OF ENROLLMENT MISSING. PATIENT WILL NEED TO CALL IN EXPRESS LETTER OF HARDSHIP. THE MFR ALSO NEEDS COPIES OF PA APPROVAL OR DENIAL OF PA FOR DUPIXENT. AND WILL NEED RX FOR DUPIXENT. Gloria Mckeon 11/12/23 9:45 AM * LindaDinorajulia Davis - 10/24/2023 8:48 AM EST [facility] Assistance Outreach The Specialty Medication Access Team received a referral to work with Raghu Rosenthal to complete an application to the armored car guard's assistance program for their specialty medication, Dupixent. [facility] left message for patient to provide the armored car guard application status. [facility] will follow-up with the patient in 3 days to see if they need any additional guidance. Summary of conversations and next steps: CC: SENT PATIENT ED MESSAGE IN REGARDS TO DUPIXENT APPLICATION AND MFR NEEDING PATIENT AT THIS TIME THEY NEED YOU TO CALL THEM AND EXPRESS A LETTER OF HARDSHIP. YOU CAN DO THIS BY CALLING . Gloria Mckeon 11/12/23 10:22 AM documented in this encounter Plan of Treatment Upcoming Encounters Date Type Department Care Team (Late st Contact Info) Description 12/18/2024 2:00 PM EDT Office Visit Dermatology at [facility] [address] [place] [address] Heber Snyder MD [facility] [place] [address] documented as of this encounter Goals Goal Patient Goal Type Associated Problems Recent Progress Patient-Stated? Author DH Home Medication Compliance and Understanding Patient Facing Action Plan On track( 018 9:29 AM EST) Jono Madrid, [facility] Note: Patient's specific desired goal: Reduction in psoriasis patches and psoriatic arthritis pain / symptoms. Measured by: pain scale, joints affected, BSA affected by psoriasis Time-frame to meet goal: ongoing - mostly effective at this time documented as of this encounter Visit Diagnoses Not on filedocumented in this encounter Care Teams Application Developer Manager Relationship Specialty Start Date End Date Doug Valderrama MD [address] [place] [address] PCP - General Family Medicine 02/26/23 documented as of this encounter
--- OUTSIDE RECORDS SUMMARY | 2024-09-23 14:19 | XMS_ITS | Encounter Summary ---
Author Organization [facility], 1927–[address] [place] [address] Care Team Providers Care Drivers License Examiner Name Role Phone Doug Valderrama MD Primary Care Provider [phone] Reason for Visit * Reason Comments Medication Refill Encounter Details Date Type Department Care Team (Late st Contact Info) Description 06/08/2024 Refill Dermatology at [facility] [address] [place] [phone] Joyce Snyder MD [facility] [place] [address] Atopic dermatitis, unspecified type Social History Tobacco [...] encounter Miscellaneous Notes * Telephone Encounter - Darcie Drew LPN - 06/09/2024 4:05 PM EDT Medication Refill Request Order(s) pended and routed to Dr. Snyder to review and sign, if appropriate. - Medication(s) requested to refill: TAC - Associated diagnosis: atopic dermatitis - Last visit: 10/23/2023 - Recommended follow up: 5 months - Next scheduled: 12/18/2024 - Special considerations: needs follow up sooner? - Appropriate to refill: pending MD approval documented in this encounter Plan of Treatment Upcoming Encounters Date Type Department Care Team (Late st Contact Info) Description 12/18/2024 2:00 PM EDT Office Visit Dermatology at [facility] [address] [place] [address] Joyce Snyder MD [facility] [place] [address] documented as of this encounter Goals Goal Patient Goal Type Associated Problems Recent Progress Patient-Stated? Author DH Home Medication Compliance and Understanding Patient Facing Action Plan On track( 018 9:29 AM EST) Jono Madrid, [facility] Note: Patient's specific desired goal: Reduction in psoriasis patches and psoriatic arthritis pain / symptoms. Measured by: pain scale, joints affected, BSA affected by psoriasis Time-frame to meet goal: ongoing - mostly effective at this time documented as of this encounter Visit Diagnoses Diagnosis Atopic dermatitis, unspecified type documented in this encounter Care Teams Drivers License Examiner Relationship Specialty Start Date End Date Doug Valderrama MD [address] [facility] [address] [place] [address] PCP - General Family Medicine 02/26/23 documented as of this encounter
--- OUTSIDE RECORDS SUMMARY | 2024-09-23 14:19 | XMS_ITS | Encounter Summary ---
[place] [address] Care Team Providers Care Firesetter Name Role Phone Doug Valderrama MD Primary Care Provider [phone] Encounter Details Date Type Department Care Team (Latest Contact Info) Description 05/09/2024 Specialty [place] [address] Manuel Briseno, [facility] Refill Coordination - 28 day recurrence (dupilumab) [...] Progress Notes * Colin Swanson CPHT - 05/09/2024 11:39 AM EDT Clinical Management Plan: Refill Specialty [...] (compared to [facility] med list) No Review Flowsheet 05/10/2024 6:17 PM Assessment What is the name of [...] date will you need this fill by? 05/19/2024 Adherence: Any missed doses? No Patient understands no changes to current drug regimen were made. Colin Swanson CPHT 05/12/24 8:23 AM documented in this encounter Plan of Treatment Upcoming Encounters Date Type Department Care Team (Late st Contact Info) Description 12/18/2024 2:00 PM EDT Office Visit Dermatology at [place] [address] [place] [address] Joyce Snyder MD [facility] [place] [address] documented as of this encounter Goals Goal Patient Goal Type Associated Problems Recent Progress Patient-Stated? Author DH Home Medication Compliance and Understanding Patient Facing Action Plan On track( 018 9:29 AM EST) No Jono Reed, [facility] Note: Patient's specific desired goal: Reduction in psoriasis patches and psoriatic arthritis pain / symptoms. Measured by: pain scale, joints affected, BSA affected by psoriasis Time-frame to meet goal: ongoing - mostly effective at this time documented as of this encounter Visit Diagnoses Not on filedocumented in this encounter Care Teams Firesetter Relationship Specialty Start Date End Date Doug Valderrama MD [address] [place] [address] PCP - General Family Medicine 02/26/23 documented as of this encounter
--- OUTSIDE RECORDS SUMMARY | 2024-09-23 14:19 | XMS_ITS | Encounter Summary ---
Author Organization [place] [address] Care Team Providers Care Compressor Engineer Name Role Phone Doug Valderrama MD Primary Care Provider [phone] Encounter Details Date Type Department Care Team (Latest Contact Info) Description 08/01/2024 Specialty [place] [phone] Jose Tim, [facility] Refill Coordination - 28 day [...] Progress Notes * Colin Swanson CPHT - 08/01/2024 10:42 AM EST Clinical Management Plan: Refill Specialty Pharmacy Consultation; [...] Sodium Tetracyclines Medication Reconciliation Discrepancies (compared to [facility] med list) No Review Flowsheet 08/01/2024 3:50 PM Assessment What is the name of the specialty medication you are refilling? Dupixenr Are you taking any new medications? No [...] date will you need this fill by? 08/12/2024 Adherence: Any missed doses? No Patient understands no changes to current drug regimen were made. Colin Swanson CPHT 08/04/24 7:19 AM documented in this encounter Plan of Treatment Upcoming Encounters Date Type Department Care Team (Late st Contact Info) Description 12/18/2024 2:00 PM EDT Office Visit Dermatology at [address] [phone] Joyce Snyder MD [facility] [place] [address] documented as of this encounter Goals Goal Patient Goal Type Associated Problems Recent Progress Patient-Stated? Author DH Home Medication Compliance and Understanding Patient Facing Action Plan On track( 018 9:29 AM EST) No Jono Reed, [facility] Note: Patient's specific desired goal: Reduction in psoriasis patches and psoriatic arthritis pain / symptoms. Measured by: pain scale, joints affected, BSA affected by psoriasis Time-frame to meet goal: ongoing - mostly effective at this time documented as of this encounter Visit Diagnoses Not on filedocumented in this encounter Care Teams Compressor Engineer Relationship Specialty Start Date End Date Doug Valderrama MD [address] [place] [address] [address] [facility] [address] [place] [address] PCP - General Family Medicine 02/26/23 documented as of this encounter
--- OUTSIDE RECORDS SUMMARY | 2024-09-23 14:19 | XMS_ITS | Clinical Summary ---
Author Organization [facility] [place] [address] Care Team Providers Care Tenant Relations Coordinator Name Role Phone Doug Valderrama MD Primary Care Provider [phone] Allergies Active Allergy Reactions Criticality Noted Date Comments Leflunomide Rash 02/10/2016 RASH Clarithromycin Hydrocodone Bitartrate Indomethacin Lansoprazole Atorvastatin 08/18/2013 Joint pain Morphine Sulfate Nausea And Vomiting Medium Unclassified Drug Nausea And Vomiting,Other (See Comments) 03/06/2013 IV dyes all extremtites cold Pravastatin Sodium Tetracyclines Venom-Honey Bee Shortness Of Breath High 02/09/2011 Hydrocodone-Acetaminophe n Shortness Of Breath High 08/18/2013 Problems breathing Medications Medication Sig Dispensed Refills Start Date End Date Status aspirin 81 mg chewable tablet Take 81 mg by mouth daily. Active Fenofibric Acid (Trilipix) [address] capsule Take 1 tablet by mouth daily. Active ranitidine (ZANTAC) 150 mg tablet Take 150 mg by mouth 2 times daily. Active amoxicillin (AMOXIL) 500 mg capsule Take 2,000 mg by mouth See Admin Instructions. Takes before Dental procedure. TAKE 4 TABLETS ONE HOUR BEFORE DENTAL PROCEDURES Active acetaminophen (TYLENOL) 500 mg tablet Take 2 tablets by mouth every 6 hours. 30 tablet 09/06/2013 Active Additional Information Patient taking differently:1,000 mg OralPRN, Reported on 08/14/2017 losartan (COZAAR) 100 mg Tablet Take 100 mg by mouth daily. Active EPINEPHrine (EPIPEN) 0.3 mg/0.3 mL (1:1,000) Auto-Injector Inject 0.3 mg into the muscle once. Reported on 04/20/2017 Active escitalopram (LEXAPRO) 20 mg Tablet Take 20 mg by mouth daily. Active traZODone (DESYREL) 100 mg Tablet Take 100 mg by mouth nightly. Active amLODIPine (NORVASC) 10 mg Tablet TAKE ONE TABLET BY MOUTH EVERY DAY 3 08/08/2016 Active hydroCHLOROthiazide (HYDRODIURIL) 25 mg Tablet Take 25 mg by mouth daily. 4 04/20/2017 Active spironolactone (ALDACTONE) 25 mg Tablet Take 25 mg by mouth daily. Active diclofenac (VOLTAREN) 1 % GelIndications:Psori atic arthritis Apply 2 g topically 4 times daily. 100 g 3 03/07/2018 Active metFORMIN (GLUCOPHAGE) 500 mg Tablet Take 500 mg by mouth 2 times daily (with meals). 0 02/14/2019 Active fluocinolone (DERMA-SMOOTHE) 0.01 % Oil Apply to scalp nightly for 1 week, then decrease to 2x weekly as needed. 120 mL 3 03/17/2019 Active amLODIPine (NORVASC) 5 mg TabletIndications:Es sential hypertension Take 1 tablet by mouth daily. Take each evening in addition to taking the 10 mg each morning 90 tablet 5 05/22/2019 Active rosuvastatin (CRESTOR) 10 mg TabletIndications:Hy perlipidemia, unspecified hyperlipidemia type Take 1 tablet by mouth daily. 90 tablet 1 06/09/2019 Active betamethasone dipropionate (DIPROLENE) 0.05 % Lotion Apply to the affected areas on the scalp every other day. [place] Neck-smoothe oil for more severe flares on the scalp. 60 mL 1 06/20/2019 Active betamethasone dipropionate (DIPROLENE) 0.05 % Cream Apply to the affected areas on the back and flanks twice daily, as needed. 45 g 1 09/11/2019 Active betamethasone dipropionate (DIPROLENE) 0.05 % Ointment Apply twice a day to bilateral hands and feet as needed. 45 g 1 01/09/2020 Active omeprazole (PriLOSEC) 20 mg Capsule, Delayed Release(E.C.) Take 20 mg by mouth daily. Active cholecalciferol (Vitamin D3) 1,000 unit tablet Take by mouth daily. Active clopidogreL (Plavix) 75 mg tablet Take 75 mg by mouth Daily. 02/07/2023 Active metoprolol succinate XL (Toprol-XL) 25 mg ER 24 hr tablet Take 25 mg by mouth Daily. 02/07/2023 Active potassium chloride ER (Klor-Con M) 20 mEq ER micro-encapsulated crystal tablet Take 40 mEq by mouth Daily. 02/07/2023 Active tiotropium bromide (Spiriva Respimat) 2.5 mcg/actuation Mist INHALE 2 PUFFS BY MOUTH EVERY DAY FOR BREATHING 05/12/2022 Active torsemide (Demadex) 60 mg tablet Take 60 mg by mouth 2 times daily. 3 tablets in the morning 02/07/2023 Active doxepin (SINEquan) 25 mg capsule Take 25 mg by mouth daily. Active gabapentin (Neurontin) 600 mg tablet Take 600 mg by mouth 2 times daily. Active dupilumab (Dupixent Pen) 300 mg/2 mL Pen Injector Inject 2 mLs subcutaneously every 14 days. 4 mL 5 03/18/2024 Active triamcinolone (Kenalog) 0.1 % CreamIndications:Georgi pic dermatitis, unspecified type APPLY TOPICALLY TO THE AFFECTED AREA ON THE TRUNK AND EXTREMITIES TWICE DAILY FOR 2 WEEKS. TAKE 1 WEEK OFF AND REPEAT CYCLE NEEDED. 454 g 3 06/10/2024 Active Active Problems Problem Noted Date Diagnosed Date Atopic dermatitis 02/14/2024 Cardiac resynchronization th erapy pacemaker (WHEELCHAIR VAN OPERATOR FIRST RESPONDER-P) in place Biotronik WHEELCHAIR VAN OPERATOR FIRST RESPONDER-P 01/12/2023 Diabetes mellitus 05/22/2019 Assessment & Plan (05/22/2019 9:50 AM EDT): A relatively new diagnosis for him. On metformin. A1c's reportedly <7%. Osteoarthritis of both knees 10/08/2018 Bradycardia 02/21/2018 Assessment & Plan (02/21/2018 10:26 AM EDT): Asymptomatic. Not on bblocker. Continue to monitor. Psoriatic arthritis 10/29/2017 CAD (coronary artery disease) 07/05/2016 Overview (07/05/2016): S/p CABG X 3 2012 Assessment & Plan (05/22/2019 9:59 AM EDT): Secondary prevention with diet/exercise/weight control. He understands the importance of weight management. Continue with aspirin, BP control and statin therapy. He seems to be tolerating the low-dose statin. He has issues in the past with increased statin doses. It would be reasonable to try to increase his Crestor to 10 md / day at this point. Assessment & Plan (02/21/2018 10:28 AM EDT): Secondary prevention with diet/exercise/weight control. He understands the importance of weight management. Continue with aspirin, BP control and statin therapy. He seems to be tolerating the low-dose statin. Reluctant to increase dosage given prior issues with statins. Assessment & Plan (07/06/2016 3:21 PM EDT): Secondary prevention with diet/exercise/weight control. He understands the importance of weight management. Continue with aspirin, BP control and attempt to restart statin therapy. No need for further CV testing at the present time. Nonrheumatic aortic (valve) stenosis 08/19/2013 Overview (07/05/2016): Aortic valve area 1.1 cm??; s/p AVR in 2012 Assessment & Plan (05/22/2019 9:56 AM EDT): S/p tissue AVR. Doing well. Continue with antibiotic prophylaxis prior to dental work. Will get repeat echocardiogram at next visit. Assessment & Plan (02/21/2018 10:20 AM EDT): S/p tissue AVR. Doing well. Continue with antibiotic prophylaxis prior to dental work. Will get repeat echocardiogram. Assessment & Plan (07/06/2016 10:43 AM EDT): Echo today appears stable. S/p tissue AVR. Doing well. Continue with antibiotic prophylaxis prior to dental work. Obesity 04/22/2012 Assessment & Plan (05/22/2019 10:01 AM EDT): Obesity remains a central issue. I reinforced the need for a heart healthy diet and a focus on weight reduction. He is not interested in a formal weight loss program; rather, will continue to work on this by himself. Assessment & Plan (02/21/2018 10:22 AM EDT): Obesity remains a central issue. I reinforced the need for a heart healthy diet and a focus on weight reduction. Assessment & Plan (07/06/2016 3:22 PM EDT): Obesity remains an issue. I reinforced the need for a heart healthy diet and a focus on weight reduction. HTN (hypertension) 04/22/2012 Assessment & Plan (05/22/2019 9:59 AM EDT): Mr. Rosenthal is on numerous BP medications; BP seems to be well-controlled in the office today and at home. He remains bradycardic at rest (not on bblocker). BP stable at home. Assessment & Plan (02/21/2018 10:22 AM EDT): Mr. Rosenthal is on numerous BP medications; BP seems to be well-controlled in the office today and at home. He remains bradycardic at rest (not on bblocker). Assessment & Plan (07/06/2016 3:21 PM EDT): Mr. Rosenthal is on numerous BP medications, but has noted am hypertension. Will add an additional 5 mg of amlodipine to be taken each evening to address his morning hypertension. I am reluctant to start a beta-ricardo due to resting bradycardia and low heart rate with prior beta-ricardo use. Hyperlipidemia 04/22/2012 Assessment & Plan (05/22/2019 10:00 AM EDT): Continues with Crestor, with an increase to 10 mg daily. Assessment & Plan (02/21/2018 10:22 AM EDT): He has had some intolerance to statin (Lipitor), but seems to be tolerating Crestor. Assessment & Plan (07/06/2016 10:40 AM EDT): He has had some intolerance to statin (Lipitor). Given his extensive CAD, will retry statin therapy at low dose (Crestor 5 mg daily). He is followed at the [facility] for labs. GERD (gastroesophageal reflux disease) 2 Sleep apnea 04/22/2012 Assessment & Plan (05/22/2019 10:00 AM EDT): Continues with the OLIVIER mask. Former smoker 04/22/2012 S/P prosthetic total arthroplasty of the hip Subarachnoid hemorrhage 04/22/2012 Overview (04/22/2012): 2007 Fatty liver 04/22/2012 Pancreatitis 04/22/2012 Overview (04/22/2012): 11/05 Possible gallstone pancreatitis. 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/22/2012 Overview (04/22/2012): S/p panniculectomy Psoriasis 05/05/2011 Depression 05/04/2011 Encounters Date Type Department Care Team Description 09/01/2024 Specialty [place] [address] Citlaly Berumen, [facility] Refill Coordination - 28 day recurrence (dupilumab) for Dermatology 08/01/2024 [place]ty [place] [id number] Jose Tim, [facility] Refill Coordination - 28 day recurrence (dupilumab) for Dermatology 07/07/2024 [place]ty [place] [address] Jose Tim [facility] Refill Coordination - 28 day recurrence (dupilumab) for Dermatology from Last 3 Months Immunizations Name Administration Dates Next Due Diphtheria,Pertussis,Tetanus 10/03/2011 Influenza Trivalent w/Preservative 07/13/2015,,07/17/2012 Influenza Vaccine, Whole 07/16/2008,08/10/2006,1 Pneumococcal 23-Valent Polys accharide (Pneumovax 23) 10/03/2011,09/19/2006 Td Adult (not absorbed) 05/01/2006,09/24/1994 Zoster LIVE (Zostavax) 11/10/2012 Family History Medical History Relation Comments Cancer Mother Relation Status Comments Father Mother Social History Tobacco Use Types Packs/Day Years [...] Sign Reading Time Taken Comments Blood Pressure 123/58 03/07/2023 1:53 PM EDT Pulse 73 03/07/2023 1:53 PM EDT Temperature 36.4 ??C (97.6 ??F) 09/11/2019 1 0:33 AM EST Respiratory Rate 18 05/11/2017 8:19 AM EDT Oxygen Saturation 100% 03/07/2023 1:53 PM EDT Inhaled Oxygen Concentration - - Weight 107.9 kg (237 lb 14.4 oz) 03/07/2023 1:53 PM EDT Height 172.7 cm (5' 8) 03/07/2023 1:53 PM EDT Body Mass Index 36.17 03/07/2023 1:53 PM EDT Plan of Treatment Upcoming Encounters Date Type Department Care Team (Late st Contact Info) Description 12/18/2024 2:00 PM EDT Office Visit Dermatology at [facility] [address] [place] [address] Joyce Snyder MD [facility] [place] [address] Health Maintenance Due Date Last Done Comments DM Hemoglobin A1c 1955 DM Opthalmology Exam 1955 DM Urine Microalbumin yearly 1955 Hepatitis C Screening 1964 Advance Directive 2001 Pneumoccocal Vaccine: 65+ (2 of 2 - PCV) 10/03/2012 10/03/2011, 09/19/2006 Zoster vaccine (2 of 3) 01/05/2013 11/10/2012 DM Creatinine yearly 02/18/2021 02/19/2020, 09/11/2019, 03/06/2019, Additional history exists RSV Vaccine (1 - 1-dose 75+ series) 2021 Tetanus/Diphtheria/Pertussis Vaccines (2 - Tdap) 10/03/2021 10/03/2011, 05/01/2006, 09/24/1994 Covid-19 Vaccine (1 - 2023-2 5 season) 2024 Influenza (Flu) vaccine (1 o f 1 - Influenza standard series) 05/25/2024 07/13/2015, 06/30/2014, 07/17/2012, Additional history exists Goals Goal Patient Goal Type Associated Problems Recent Progress Patient-Stated? Author DH Home Medication Compliance and Understanding Patient Facing Action Plan On track( 018 9:29 AM EST) Jono Madrid, [facility] Note: Patient's specific desired goal: Reduction in psoriasis patches and psoriatic arthritis pain / symptoms. Measured by: pain scale, joints affected, BSA affected by psoriasis Time-frame to meet goal: ongoing - mostly effective at this time Medical Devices Implanted Type Area Global Sales Executive Device Identifier Shelf Expiration Date Model / Serial / Lot Cable,Sternal ([id number]) - [id number] Implanted:Qty : 1 on 09/02/2013 by Mathew Snell MD at [facility] IMPLANTS N/A: Chest [employer] - [id number] 07/23/2018 [id number] / / [id number] Valve,Aor,Per Ewa godfrey,2 5mm ([id number]) - [id number] Implanted:Qty : 1 on 09/02/2013 by Mathew Snell MD at [facility] IMPLANTS N/A: Heart DO NOT USE Mailbox - [id number] 06/25/2017 [id number] / / [id number] Cable,Sternal ,Single ([id number]) - [id number] Implanted:Qty : 1 on 09/02/2013 by Mathew Snell MD at [facility] IMPLANTS N/A: Chest [employer] - [id number] 04/04/2018 [id number] / / [id number] Patch,Cav,Per icard,2x5cm ([id number]) (Autoreq) - [id number] Implanted:Qty : 1 on 09/02/2013 by Mathew Snell MD at [facility] IMPLANTS N/A: Heart DO NOT USE [employer] - [id number] 07/10/2014 [id number] / / [id number] Procedures Procedure Name Priority Date/Time Associated Diagnosis Comments HC VENIPUNCTURE Routine 02/19/2020 1:46 PM EDT High risk medication use from Last 3 Months or Most Recently Relevant to Health Maintenance Results * (ABNORMAL) Comprehensive metabolic panel (non-fasting) (02/19/2020 1:46 PM EDT) Glucose 126 65 - 199 mg/dL [facility] Comment:Diabetes: >=200 mg/d L plus symptoms Blood Urea Nitrogen 38(H) 10 - 20 mg/dL [facility] Creatinine 1.62(H) 0.80 - 1.50 mg/dL [facility] Sodium 138 135 - 145 mmol/L [facility] Potassium 4.4 3.5 - 5.0 mmol/L [facility] Comment: Please note: ??Patients with WBC >100,000 may have falsely elevated Potassium levels. ??For accurate Potassium quantification in these patients send serum separator tube (gold top) for subsequent determinations. ??Contact the Clinical Chemistry Laboratory if there are any questions. Chloride 101 98 - 107 mmol/L [facility] Carbon Dioxide 25 22 - 31 mmol/L [facility] Anion Gap 12 5 - 15 mmol/L [facility] Calcium 9.7 8.5 - 10.5 mg/dL [facility] Protein, Total 6.7 6.1 - 8.0 gm/dL [facility] Albumin 3.9 3.2 - 5.2 gm/dL [facility] Aspartate Aminotransferase 46(H) 0 - 39 unit/L [facility] Alanine Aminotransferase 26 0 - 55 unit/L [facility] Alkaline Phosphatase 52 40 - 130 unit/L [facility] Bilirubin, Total 0.4 0.2 - 1.3 mg/dL [facility] Est Glomerular Filtration Rate 41(L) >=60 mL/min/1. 73 m?? [facility] Comment: The eGFR was calculated using the CKD-EPI equation. As with all creatinine based estimates of kidney function, eGFR values calculated with the CKD-EPI equation are not accurate in patients with acute kidney failure, extremes of body mass or the acutely ill. http://[employer] eGFR 48(L) >=60 mL/min/1. 73 m?? [facility] Comment: The eGFR was calculated using the CKD-EPI equation. As with all creatinine based estimates of kidney function, eGFR values calculated with the CKD-EPI equation are not accurate in patients with acute kidney failure, extremes of body mass or the acutely ill. http://[employer] Blood specimen (specimen) 02/19/2020 1:46 PM EDT 02/19/2020 6:35 PM EDT Narrative Resulting Agency Comment Spec In Lab Holli Berrios MD CHEMISTRY ORDERAB LES [facility] [place] [address] [place] [address] from Last 3 Months or Most Recently Relevant to Health Maintenance Advance Directives * Full Code (Latest Code Status on File) Date Activated Date Inactivated Comments 09/02/2013 7:20 PM 09/06/2013 3:31 PM Question Answer Comments Order Status: Initial Order Does patient have decision m aking capacity? Yes, Order is based on Patients wishes. * Full Code Date Activated Date Inactivated Comments 09/02/2013 11:07 AM 09/02/2013 7:20 PM * Full Code Date Activated Date Inactivated Comments 08/19/2013 1:01 PM 09/02/2013 11:07 AM Question Answer Comments Does patient have decision m aking capacity? Yes, Order is based on the parent(s) wishe(s). Care Teams Tenant Relations Coordinator Relationship Specialty Start Date End Date Doug Valderrama MD [address] [place] [address] PCP - General Family Medicine 02/26/23
--- OUTSIDE RECORDS SUMMARY | 2024-09-23 14:19 | XMS_ITS | Encounter Summary ---
[place] [address] Care Team Providers Care Call Center Manager Name Role Phone Doug Valderrama MD Primary Care Provider [phone] Encounter Details Date Type Department Care Team (Latest Contact Info) Description 07/07/2024 Specialty [place] [address] Jose Tim, [facility] Refill Coordination - 28 day recurrence (dupilumab) [...] as of this encounter Progress Notes * Rere Marquez CPHT - 07/07/2024 11:18 AM EDT Clinical Management Plan: Refill Specialty Pharmacy Consultation; Rere Marquez CPHT Comprehensive Medication Management (CMM) Mr. Raghu [...] Sodium Tetracyclines Medication Reconciliation Discrepancies (compared to [facility] med list) No Review Flowsheet 07/07/2024 12:38 PM Assessment What is the name of [...] date will you need this fill by? 07/15/2024 Adherence: Any missed doses? No Patient understands no changes to current drug regimen were made. Rere Marquez CPHT 07/08/24 7:54 AM documented in this encounter Plan of Treatment Upcoming Encounters Date Type Department Care Team (Late st Contact Info) Description 12/18/2024 2:00 PM EDT Office Visit Dermatology at [facility] [address] [place] [address] Joyce Snyder MD [facility] [place] [address] documented as of this encounter Goals Goal Patient Goal Type Associated Problems Recent Progress Patient-Stated? Author DH Home Medication Compliance and Understanding Patient Facing Action Plan On track( 018 9:29 AM EST) No Jono Reed, [facility] Note: Patient's specific desired goal: Reduction in psoriasis patches and psoriatic arthritis pain / symptoms. Measured by: pain scale, joints affected, BSA affected by psoriasis Time-frame to meet goal: ongoing - mostly effective at this time documented as of this encounter Visit Diagnoses Not on filedocumented in this encounter Care Teams Call Center Manager Relationship Specialty Start Date End Date Doug Valderrama MD [address] [place] [address] [address] [facility] [address] [place] [address] PCP - General Family Medicine 02/26/23 documented as of this encounter
--- OUTSIDE RECORDS SUMMARY | 2024-09-23 14:19 | XMS_ITS | Continuity of Care Document ---
Author Organization Unknown Address [address] [place] [address] Care Team Providers Care Travel Freight And Passenger Agent Name Role Phone INCLUSIVE, INCLUSIVE Primary Care Physician Unav ailable Chief Complaint and Reason for Visit Chief Complaint TIA Reason for Visit TIA (transient ische ladan attack) Hypertension Coronary artery disease H/O aortic valve replacement with porcine valve Depression Sleep initiation dysfunction Allergies, Adverse Reactions, Alerts Allergen Type Severity Reaction Last Updated Verified Status hydrocodone ([id number]) Allergy Mild Other - describe in comments December 06, 2022 Yes Active tetracycline ([id number]) Allergy Mild Other - describe in comments December 06, 2022 Yes Active clavulanic acid ([id number]) Allergy Mild Diarrhea December 06, 2022 Yes Active amoxicillin ([id number]) Allergy Mild Diarrhea December 06, 2022 Yes Active atorvastatin ([id number]) Allergy Mild Other - describe in comments [...] Count December 06, 2022 6:18pm 4.7 3.6-11.1 [facility] [address] [facility] [address] Red Blood Count December 06, 2022 6:18pm 3.59 4.27-5.49 [facility] [address] [place] [address] 85693 Hemoglobin December 07, 2022 9:39am 11.5 12.9-16.1 [facility] [address] [place] [address] 03833 Hematocrit December 07, 2022 9:39am 35.6 37.7-46.5 [facility] [address] [place] [address] 87101 Mean Corpuscular Volume December 06, 2022 6:18pm 95.8 79.3-94.8 [facility] [address] [place] [address] 59777 Mean Corpuscular Hemoglobin December 06, 2022 6:18pm 31.2 26.8-33.2 [facility] [address] [place] [address] 86275 Mean Corpuscular Hemoglobin Concent December 06, 2022 6:18pm 32.6 33.5-35.5 [facility] [address] [place] [address] 19827 Red Cell Distribution Width December 06, 2022 6:18pm 14.9 12.0-15.1 [facility] [address] [place] [address] 86749 Platelet Count December 06, 2022 6:18pm 91 165-353 [facility] [address] [place] [address] 17577 Mean Platelet Volume December 06, 2022 6:18pm 10.5 7.5-10.6 [facility] [address] [place] [address] 10810 Neutrophils (%) (Auto) December 06, 2022 6:18pm 56.8 43.2-71.5 [facility] [address] [place] [address] 27836 Immature Granulocytes % December 06, 2022 6:18pm 0.2 0.0-0.5 [facility] [address] [place] [address] 49975 Lymphocytes (%) (Auto) December 06, 2022 6:18pm 20.9 16.8-43.4 [facility] [address] [place] [address] 05794 Monocytes (%) (Auto) December 06, 2022 6:18pm 8.6 4.6-12.4 [facility] [address] [place] [address] 23586 Eosinophils (%) (Auto) December 06, 2022 6:18pm 12.9 0.7-7.8 [facility] [address] [place] [address] 70843 Basophils (%) (Auto) December 06, 2022 6:18pm 0.6 0.2-1.2 [facility] [address] [place] [address] 92405 Nucleated Red Blood Cells % (auto) December 06, 2022 6:18pm 0.0 0-0 [facility] [address] [place] [address] 20646 Neutrophils # (Auto) December 06, 2022 6:18pm 2.6 1.9-7.2 [facility] [address] [place] [address] 94427 Immature Granulocytes # December 06, 2022 6:18pm 0.0 0.0-0.1 [facility] [address] [place] [address] 13594 Lymphocytes # (Auto) December 06, 2022 6:18pm 1.0 1.1-2.7 [facility] [address] [place] [address] 19669 Monocytes # (Auto) December 06, 2022 6:18pm 0.4 0.3-0.8 [facility] [address] [place] [address] 05051 Eosinophils # (Auto) December 06, 2022 6:18pm 0.6 0.0-0.5 [facility] [address] [place] [address] 24395 Basophils # (Auto) December 06, 2022 6:18pm 0.0 0.0-0.1 [facility] [address] [place] [address] 47177 Nucleated Red Blood Cells # December 06, 2022 6:18pm 0.0 0-0 [facility] [address] [place] [address] 42331 Urine Color December 06, 2022 8:29pm Leigha [facility] [address] [place] [address] 41167 Urine Appearance December 06, 2022 8:29pm Hazy [facility] [address] [place] [address] 55361 Urine Specific Bethany December 06, 2022 8:29pm 1.023 1.005-1.030 [facility] [address] [place] [address] 47892 Urine pH December 06, 2022 8:29pm 5.0 5.0-8.0 [facility] [address] [place] [address] 24159 Urine Leukocyte Esterase December 06, 2022 8:29pm NEGATIVE NEGATIVE [facility] [address] [place] [address] 36543 Urine Nitrite December 06, 2022 8:29pm NEGATIVE NEGATIVE [facility] [address] [place] [address] 62034 Urine Protein December 06, 2022 8:29pm NEGATIVE NEGATIVE [facility] [address] [place] [address] 89220 Urine Glucose (UA) December 06, 2022 8:29pm NEGATIVE NEGATIVE [facility] [address] [place] [address] 98817 Urine Ketones December 06, 2022 8:29pm TRACE NEGATIVE [facility] [address] [place] [address] 36854 Urine Urobilinogen December 06, 2022 8:29pm NEGATIVE NEGATIVE [facility] [address] [place] [address] 88069 Urine Bilirubin December 06, 2022 8:29pm NEGATIVE NEGATIVE [facility] [address] [place] [address] 63678 Urine Blood December 06, 2022 8:29pm NEGATIVE NEGATIVE [facility] [address] [place] [address] 47962 Urine Ascorbic Acid Level December 06, 2022 8:29pm NEGATIVE [facility] [address] [place] [address] 55054 Sodium Level December 07, 2022 9:39am 138 137-144 [facility] [address] [place] [address] 83198 Potassium Level December 07, 2022 9:39am 4.5 3.1-5.1 [facility] [address] [place] [address] 73523 Chloride Level December 07, 2022 9:39am 110 101-110 [facility] [address] [place] [address] 13074 Carbon Dioxide Level December 07, 2022 9:39am 18 23-31 [facility] [address] [place] [address] 51236 Glucose Level December 07, 2022 9:39am 86 70-105 [facility] [address] [place] [address] 17657 Blood Urea Nitrogen December 07, 2022 9:39am 41.0 8.4-25.7 [facility] [address] [place] [address] 36654 Creatinine December 07, 2022 9:39am 1.52 0.72-1.25 [facility] [address] [place] [address] 36173 Estimated Creatinine Clearance Calc December 07, 2022 9:39am 51.72 PT Ht: 172.72cm, PT Wt: 118.5KG [facility] [address] [place] [address] 63630 Anion Gap December 07, 2022 9:39am 15 7-16 [facility] [address] [place] [address] 37203 Calcium Level December 07, 2022 9:39am 9.4 8.4-10.2 [facility] [address] [place] [address] 01887 Phosphorus Level December 07, 2022 9:39am 3.1 2.3-4.7 [facility] [address] [place] [address] 85894 Magnesium Level December 07, 2022 9:39am 1.7 1.6-2.6 [facility] [address] [place] [address] 28275 Troponin December 06, 2022 7:10pm 0.071 0.030-0.118 [facility] [address] [place] [address] 65827 Vitamin B12 Level December 07, 2022 9:39am 396 213-816 [facility] [address] [place] [address] 44856 Thyroid Stimulating Hormone (TSH) December 07, 2022 9:39am 2.2743 0.3500-4.940 0 [facility] [address] [place] [address] 33756 POC Glucose December 06, 2022 7:18pm 89 74-106 POC INTERFACE [address] [place] [address] 24733 Diagnostic Imaging Reports Report Dictated Date/Time Dictated By Status December 06, 2022 5:47pm LATESHA Monterroso MD completed [address], [place] [id number] --------- Patient: IRVING ACOSTA : 1945 Sex: M Address: Phone: Unit #: [id number] REQ SEQ #: [id number] Location: ED Room #: Ordering: JOSE COHEN [...] Signed by: LATESHA ANTOINE II, MD 12/06/22 2422 cc: JOSE COHEN PA-C, II,LATESHA Davis MD ~ Report Dictated Date/Time Dictated By Status December 06, 2022 5:48pm LATESHA Monterroso MD completed [address] [id number] --------- Patient: IRVING ACOSTA : 1945 Sex: M Address: Phone: Unit #: [id number] REQ SEQ #: [id number] Location: ED Room #: Ordering: JOSE COHEN PA-C Diagnosis: CONFUSED CHEST PORTABLE - 1 VIEW History: CONFUSED CONFUSED Single view chest. Cardiomegaly. Vascular prominence. Status post median sternotomy. Negative for pneumothorax. IMPRESSION: Cardiomegaly and suggestion of vascular congestion. Final report electronically signed by: Latesha Antoine MD on 12/06/2022 5:48 PM Signed by: LATESHA ANTOINE II, MD 12/06/22 8002 cc: JOSE COHEN PA-C, II,LATESHA Davis MD ~ Report Dictated Date/Time Dictated By Status December 07, 2022 9:47am JAEL CEDENOY , DO syed [address] [address] --------- Patient: IRVING ACOSTA : 1945 Sex: M Address: [address] [place] [address] [place] [address] Unit #: [id number] REQ SEQ #: [id number] Location: [facility] Room #: 7-2823-P Ordering: SOLITARIO GALINDO MD Diagnosis: TIA -------- [...] AM Signed by: JAEL HYDE DO 12/07/22 5456 cc: JAEL HYDE MARK N MD ~ Report Dictated Date/Time Dictated By Status December 07, 2022 8:22am LALY WHEELER MD completed [address] [address] --------- Patient: IRVING ACOSTA : 1945 Sex: M Address: [address] [place] [address] [place] [address] Unit #: [id number] [facility] SEQ #: [id number] Location: [facility] Room #: [id number]-P Ordering: SOLITARIO GALINDO MD Diagnosis: TIA -------- [place] [address] Study Date: 12/07/2022 08:22 AM Name: IRVING ACOSTA Exam:Adult Echocardiogram : 1945 Age: 77 yrs Gender: Male Patient Location: [facility]^4357^P Referring Physician: JOSIE Ordering Physician: SOLITARIO GALINDO Performed By: Giselle Skaggs MBA,CS History: CABG,Hyperlipidemia,Hypertension,AVR Reason For Study: STROKE/ TIA [...] WHEELER MD 12/07/22 1145 cc: SOLITARIO GALINDO MD, MICHAEL A MD ~ Report Dictated Date/Time Dictated By Status December 07, 2022 4:13pm IRVIGN MARRERO MD [address] [address] --------- Patient: IRVING ACOSTA : 1945 Sex: M Address: [address] [place] [address] [place] [address] Unit #: [id number] SEQ #: [id number] Location: [facility] Room #: [id number]-P Ordering: SOLITARIO GALINDO MD Diagnosis: TIA -------- [...] MD 12/07/22 1613 cc: SOLITARIO GALINDO MD,IRVING FLEMING ~ Vital Signs Vital Reading Result Reference Range Collection Date/Time BMI (Body Mass Index) 39.0 kg/m2 December 07, 2022 4:40am Height 68 [in_i] December 06 3 10:25pm Height 172.493325 cm December 06 10:25pm Weight 261.25 [lb_av] December 06 023 10:25pm Weight 118.5000 kg December 06 3 10:25pm Advance Directives Advance Directive Response Recorded Date/ Time Does the Patient Have an Advance Directive? December 06, 2022 8:28pm Insurance Providers Guarantor Irving Acosta Address [address] [place] [address] Contact Info. Home Phone: Payer Policy Id Coverage Id Subscriber's Name Subscriber Id Effective Date Expiration Date Medicare A&B [id number] Irving Acosta [id number] Out Of State Ppo [id number] Irving Acosta [id number] Encounters Encounter Location(s) Arrival/Admit Date Discharge/Depart Date Provider(s) Discharged Inpatient (obs) [facility] December 06, 2022 8:25pm December 07, 2022 [...] Consult for Admit December 06, 2022 7:52pm [facility] 2022 7:52pm Admission Orders December 06, 2022 [...] Discharge Patient: Schedule Appointment With:: PCP IN [place] See MD Within:: [facility] Physician [...] cut short his vacation and returned to [place] for consultation with his usual medical providers. [...] he will need to be with his analyst sales regarding further management and possible replacement. Otherwise [...]
--- OUTSIDE RECORDS SUMMARY | 2024-09-23 14:19 | XMS_ITS | Encounter Summary ---
Author Organization [facility] [place] [address] Care Team Providers Care Chief Construction Inspector Name Role Phone Doug Valderrama MD Primary Care Provider [phone] Encounter Details Date Type Department Care Team (Latest Contact Info) Description 03/14/2024 Specialty [place] [phone] Colin Swanson, [facility] Refill Coordination - 28 day recurrence [...] as of this encounter Progress Notes * Hugh Morse RPH - 03/14/2024 8:45 AM EDT Clinical Management Plan: Refill Specialty Pharmacy Consultation; Hugh Morse [facility] Comprehensive Medication Management (CMM) Mr. Raghu Rosenthal is a 78 y.o. (1945) male who was contacted in regard to a specialty medication refill reminder. The patient requested a refill of dupixent. A review of the medication therapy was [...] Sodium Tetracyclines Medication Reconciliation Discrepancies (compared to [facility] med list) No Review Flowsheet 03/14/2024 10:03 AM Assessment What is the name of [...] date will you need this fill by? 03/24/2024 Adherence: Any missed doses? No Patient understands no changes to current drug regimen were made. Hugh Morse RPH 03/14/24 11:29 AM documented in this encounter Plan of Treatment Upcoming Encounters Date Type Department Care Team (Late st Contact Info) Description 12/18/2024 2:00 PM EDT Office Visit Dermatology at [address] [phone] Joyce Snyder MD [facility] [place] [address] documented as of this encounter Goals Goal Patient Goal Type Associated Problems Recent Progress Patient-Stated? Author DH Home Medication Compliance and Understanding Patient Facing Action Plan On track( 018 9:29 AM EST) No Jono Reed [facility] Note: Patient's specific desired goal: Reduction in psoriasis patches and psoriatic arthritis pain / symptoms. Measured by: pain scale, joints affected, BSA affected by psoriasis Time-frame to meet goal: ongoing - mostly effective at this time documented as of this encounter Visit Diagnoses Not on filedocumented in this encounter Care Teams Chief Construction Inspector Relationship Specialty Start Date End Date Doug Valderrama MD [address] [place] [address] [address] [facility] [address] [place] [address] PCP - General Family Medicine 02/26/23 documented as of this encounter
--- OUTSIDE RECORDS SUMMARY | 2024-09-23 14:19 | XMS_ITS | Encounter Summary ---
Author Organization [facility] [place] [address] Care Team Providers Care Sprayer Hand Name Role Phone Doug Valderrama MD Primary Care Provider [phone] Reason for Visit * Reason Onset Date Comments Other 05/15/2024 Encounter Details Date Type Department Care Team (Late st Contact Info) Description 05/15/2024 Notes Only Cardiology at [address] [phone] Sussy Menjivar Other Social History Tobacco Use Types Packs/Day Years [...] as of this encounter Progress Notes * Sussy Menjivar - 05/15/2024 3:40 PM EDT Soheila Castanon RN from the [place] called to cancel patient 05/21/24 appointment w/Giselle Valdivia APRN. She said [facility] and [facility] did a device check. I told her the appointment was to evaluate leads, based on a remote Dr Julio koehler. She said she thinks it was just JESUS, but will double check with Dr Singh to see what he thinks. She will call back on Sunday if appt can be cancelled. documented in this encounter Plan of Treatment Upcoming Encounters Date Type Department Care Team (Late st Contact Info) Description 12/18/2024 2:00 PM EDT Office Visit Dermatology at [facility] [address] [place] [address] Joyce Snyder MD [facility] [place] [address] documented as of this encounter Goals Goal Patient Goal Type Associated Problems Recent Progress Patient-Stated? Author DH Home Medication Compliance and Understanding Patient Facing Action Plan On track( 018 9:29 AM EST) Jono Madrid, [facility] Note: Patient's specific desired goal: Reduction in psoriasis patches and psoriatic arthritis pain / symptoms. Measured by: pain scale, joints affected, BSA affected by psoriasis Time-frame to meet goal: ongoing - mostly effective at this time documented as of this encounter Visit Diagnoses Not on filedocumented in this encounter Care Teams Sprayer Hand Relationship Specialty Start Date End Date Doug Valderrama MD [address] [place] [address] PCP - General Family Medicine 02/26/23 documented as of this encounter
--- OUTSIDE RECORDS SUMMARY | 2024-09-23 14:19 | XMS_ITS | Encounter Summary ---
Author Organization [facility] [place] [address] Care Team Providers Care Painter Sign Maintenance Name Role Phone Doug Valderrama MD Primary Care Provider [phone] [phone] Encounter Details Date Type Department Care Team (Latest Contact Info) Description 06/07/2023 10:00 AM EDT - 06/07/2023 11:59 PM EDT Hospital Encounter [place] [phone] Discharge Disposition: Home Social History Tobacco Use [...] areas on the scalp every other day. [place] C Jones-smoothe oil for more severe flares on the [...] Visit Dermatology at [address] [place] [phone] Joyce Snyder MD [facility] [place] [address] documented as of this encounter Goals Goal Patient Goal Type Associated Problems Recent Progress Patient-Stated? Author DH Home Medication Compliance and Understanding Patient Facing Action Plan On track( 018 9:29 AM EST) No Jono Reed, [facility] Note: Patient's specific desired goal: Reduction in psoriasis patches and psoriatic arthritis pain / symptoms. Measured by: pain scale, joints affected, BSA affected by psoriasis Time-frame to meet goal: ongoing - mostly effective at this time documented as of this encounter Procedures Procedure Name Priority Date/Time Associated Diagnosis Comments PRO PM INTERROGATION REMOTE UP TO 90 DAYS Routine 04/25/2023 4:30 AM EDT documented in this encounter Results * Cardiac Device Check - Remote (04/25/2023 4:30 AM EDT) Anatomical Region Laterality Modality Other 04/25/2023 4:30 AM EDT Ovidio Toledo MD IMPLANTABLE CARDIAC DEVICE documented in this encounter Visit Diagnoses Not on filedocumented in this encounter Care Teams Painter Sign Maintenance Relationship Specialty Start Date End Date Doug Valderrama MD [address] [place] [address] PCP - General Family Medicine 02/26/23 documented as of this encounter
--- OUTSIDE RECORDS SUMMARY | 2024-09-23 14:19 | XMS_ITS | Encounter Summary ---
Author Organization [place] [address] Care Team Providers Care Lunchroom Operator Name Role Phone Doug Valderrama MD Primary Care Provider [phone] [phone] Encounter Details Date Type Department Care Team (Latest Contact Info) Description 09/01/2024 Specialty [place] [address] Citlaly Berumen [facility] Refill Coordination - 28 day recurrence (dupilumab) [...] Progress Notes * Colin Swanson [facility] - 09/01/2024 9:28 AM EST Clinical Management Plan: Refill Specialty Pharmacy Consultation; Colin Swanson [facility] Comprehensive Medication Management (CMM) Mr. Raghu Rosenthal is a 79 y.o. (1945) male who was contacted in [...] of [place] med list) No Review Flowsheet 09/01/2024 10:56 AM Assessment What is the name of [...] date will you need this fill by? 09/09/2024 Adherence: Any missed doses? No Patient understands no changes to current drug regimen were made. Colin Swanson [facility] 09/01/24 12:10 PM documented in this encounter Plan of Treatment Upcoming Encounters Date Type Department Care Team (Late st Contact Info) Description 12/18/2024 2:00 PM EDT Office Visit Dermatology at [address] [phone] Joyce Snyder MD [facility] [place] [address] documented as of this encounter Goals Goal Patient Goal Type Associated Problems Recent Progress Patient-Stated? Author DH Home Medication Compliance and Understanding Patient Facing Action Plan On track( 018 9:29 AM EST) No Jono Reed, [facility] Note: Patient's specific desired goal: Reduction in psoriasis patches and psoriatic arthritis pain / symptoms. Measured by: pain scale, joints affected, BSA affected by psoriasis Time-frame to meet goal: ongoing - mostly effective at this time documented as of this encounter Visit Diagnoses Not on filedocumented in this encounter Care Teams Lunchroom Operator Relationship Specialty Start Date End Date Doug Valderrama MD [address] [place] [address] [address] [facility] [address] [place] [address] PCP - General Family Medicine 02/26/23 documented as of this encounter
--- OUTSIDE RECORDS SUMMARY | 2024-09-23 14:19 | XMS_ITS | Encounter Summary ---
Author Organization [facility] [place] [address] Care Team Providers Care Spin Instructor Name Role Phone Doug Valderrama MD Primary Care Provider +1 [phone] Reason for Visit * Reason Comments Specialty Pharmacy Review Encounter Details Date Type Department Care Team (Late st Contact Info) Description 10/23/2023 Specialty [place] [phone] Miguel Shelton, [facility] Social History Tobacco Use Types Packs/Day [...] as of this encounter Progress Notes * Miguel Shelton - 10/23/2023 2:33 PM EST The [facility] has completed a benefits investigation for Raghu Rosenthal to review their eligibility to fill at [facility]. Per patient's medication list they are prescribed DUPIXENT 300 MG/2 ML and the medication is able to be filled at the [facility], but the m edication cost may not be financially viable. The patient has been referred to the [employer] team who will assist the patient in the application process for the stakes player patient assistance program. documented in this encounter Plan of Treatment Upcoming Encounters Date Type Department Care Team (Late st Contact Info) Description 12/18/2024 2:00 PM EDT Office Visit Dermatology at [facility] [address] [place] [address] Joyce Snyder MD [facility] [place] [address] documented as of this encounter Goals Goal [...] on filedocumented in this encounter Care Teams Spin Instructor Relationship Specialty Start Date End Date Doug Valderrama MD [address] [place] [address] PCP - General Family Medicine 02/26/23 documented as of this encounter
--- OUTSIDE RECORDS SUMMARY | 2024-09-23 14:19 | XMS_ITS | Continuity of Care Document ---
Author Organization Unknown Address [address] [place] [address] Care Team Providers Care Silver Solderer Name Role Phone INCLUSIVE, INCLUSIVE Primary Care [...] Severity Reaction Last Updated Verified Status hydrocodone ([id number]) Allergy Mild Other - describe in comments December 06, 2022 Yes Active tetracycline ([id number]) Allergy Mild Other - describe in comments December 06, 2022 Yes Active clavulanic acid ([id number]) Allergy Mild Diarrhea December 06, 2022 Yes Active amoxicillin ([id number]) Allergy Mild Diarrhea December 06, 2022 Yes Active atorvastatin ([id number]) Allergy Mild Other - describe in comments [...] 10 MG PO Once Per Day 60 December 07, 2022 5:10pm Aspirin (Ecotrin*) 81 Mg TABLET. Active 81 MG PO Once Per Day 30 December 07, 2022 5:10pm Choline Fenofibrate* (Trilipix*) 135 Mg CAPSULE. Active 135 MG PO Once Per Day December 07, 2022 5:10pm Escitalopram Oxalate (Lexapro*) [...] Count December 28, 2022 8:00am 7.4 3.6-11.1 [facility] [address] [place] [address] 75365 Red Blood Count December 28, 2022 8:00am 3.25 4.27-5.49 [facility] [address] [place] [address] 57828 Hemoglobin December 28, 2022 8:00am 10.3 12.9-16.1 [facility] [address] [place] [address] 72007 Hematocrit December 28, 2022 8:00am 31.4 37.7-46.5 [facility] [address] [place] [address] 15131 Mean Corpuscular Volume December 28, 2022 8:00am 96.6 79.3-94.8 [facility] [address] [place] [address] 90977 Mean Corpuscular Hemoglobin December 28, 2022 8:00am 31.7 26.8-33.2 [facility] [address] [place] [address] 52508 Mean Corpuscular Hemoglobin Concent December 28, 2022 8:00am 32.8 33.5-35.5 [facility] [address] [place] [address] 57289 Red Cell Distribution Width December 28, 2022 8:00am 15.6 12.0-15.1 [facility] [address] [place] [address] 22573 Platelet Count December 28, 2022 8:00am 100 165-353 [facility] [address] [place] [address] 39457 Mean Platelet Volume December 28, 2022 8:00am 10.1 7.5-10.6 [facility] [address] [place] [address] 05797 Neutrophils (%) (Auto) December 27, 2022 10:00pm 45.4 43.2-71.5 [facility] [address] [place] [address] 77364 Immature Granulocytes % December 27, 2022 10:00pm 0.4 0.0-0.5 [facility] [address] [place] [address] 60740 Lymphocytes (%) (Auto) December 27, 2022 10:00pm 34.5 16.8-43.4 [facility] [address] [place] [address] 44928 Monocytes (%) (Auto) December 27, 2022 10:00pm 7.6 4.6-12.4 [facility] [address] [place] [address] 89497 Eosinophils (%) (Auto) December 27, 2022 10:00pm 11.5 0.7-7.8 [facility] [address] [place] [address] 74000 Basophils (%) (Auto) December 27, 2022 10:00pm 0.6 0.2-1.2 [facility] [address] [place] [address] 58720 Nucleated Red Blood Cells % (auto) December 28, 2022 8:00am 0.0 0-0 [facility] [address] [place] [address] 50747 Neutrophils # (Auto) December 27, 2022 10:00pm 8.6 1.9-7.2 [facility] [address] [place] [address] 35523 Immature Granulocytes # December 27, 2022 10:00pm 0.1 0.0-0.1 [facility] [address] [place] [address] 73034 Lymphocytes # (Auto) December 27, 2022 10:00pm 6.6 1.1-2.7 [facility] [address] [place] [address] 14929 Monocytes # (Auto) December 27, 2022 10:00pm 1.5 0.3-0.8 [facility] [address] [place] [address] 09447 Eosinophils # (Auto) December 27, 2022 10:00pm 2.2 0.0-0.5 [facility] [address] [place] [address] 22414 Basophils # (Auto) December 27, 2022 10:00pm 0.1 0.0-0.1 [facility] [address] [place] [address] 87406 Nucleated Red Blood Cells # December 28, 2022 8:00am 0.0 0-0 [facility] [address] [place] [address] 75115 Erythrocyte Sedimentation Rate December 28, 2022 8:00am 27 0-20 [facility] [address] [place] [address] 42314 Prothrombin Time December 27, 2022 8:35pm 17.7 12.4-15.3 [facility] [address] [place] [address] 16445 Prothromb Time International Ratio December 27, 2022 8:35pm 1.39 INR Therapeutic Range:2.0-3.0 Oral Anticoagulant Therapy2.5-3.5 Prosthetic Heart Valves, Recurrent Systemic Embolism [facility] [address] [place] [address] 40699 Urine Color December 06, 2022 8:29pm Leigha [facility] [address] [place] [address] 86847 Urine Appearance December 06, 2022 8:29pm Hazy [facility] [address] [place] [address] 48972 Urine Specific [place] December 06, 2022 8:29pm 1.023 1.005-1.03 0 [facility] [address] [place] [address] 73643 Urine pH December 06, 2022 8:29pm 5.0 5.0-8.0 [facility] [address] [place] [address] 52434 Urine Leukocyte Esterase December 06, 2022 8:29pm NEGATIVE NEGATIVE [facility] [address] [place] [address] 28419 Urine Nitrite December 06, 2022 8:29pm NEGATIVE NEGATIVE [facility] [address] [place] [address] 49369 Urine Protein December 06, 2022 8:29pm NEGATIVE NEGATIVE [facility] [address] [place] [address] 96219 Urine Glucose (UA) December 06, 2022 8:29pm NEGATIVE NEGATIVE [facility] [address] [place] [address] 46851 Urine Ketones December 06, 2022 8:29pm TRACE NEGATIVE [facility] [address] [place] [address] 37349 Urine Urobilinogen December 06, 2022 8:29pm NEGATIVE NEGATIVE [facility] [address] [place] [address] 07461 Urine Bilirubin December 06, 2022 8:29pm NEGATIVE NEGATIVE [facility] [address] [place] [address] 66022 Urine Blood December 06, 2022 8:29pm NEGATIVE NEGATIVE [facility] [address] [place] [address] 80994 Urine Ascorbic Acid Level December 06, 2022 8:29pm NEGATIVE [facility] [address] [place] [address] 66180 Sodium Level December 28, 2022 8:00am 136 137-144 [facility] [address] [place] [address] 09227 Potassium Level December 28, 2022 8:00am 4.6 3.1-5.1 [facility] [address] [place] [address] 62414 Chloride Level December 28, 2022 8:00am 110 101-110 [facility] [address] [place] [address] 23959 Carbon Dioxide Level December 28, 2022 8:00am 15 23-31 [facility] [address] [place] [address] 09526 Glucose Level December 28, 2022 8:00am 185 70-105 [facility] [address] [place] [address] 97097 Blood Urea Nitrogen December 28, 2022 8:00am 57.0 8.4-25.7 [facility] [address] [place] [address] 98781 Creatinine December 28, 2022 8:00am 1.79 0.72-1.25 [facility] [address] [place] [address] 48606 Estimated Creatinine Clearance Calc December 28, 2022 8:00am 45.28 PT Ht: 175.26cm, PT Wt: 121.9KG [facility] [address] [place] [address] 47062 Anion Gap December 28, 2022 8:00am 16 7-16 [facility] [address] [place] [address] 71901 Calcium Level December 28, 2022 8:00am 8.3 8.4-10.2 [facility] [address] [place] [address] 13652 Phosphorus Level December 27, 2022 10:00pm 5.1 2.3-4.7 [facility] [address] [place] [address] 09824 Total Bilirubin December 28, 2022 8:00am 0.7 0.1-1.2 [facility] [address] [place] [address] 63650 Total Protein December 28, 2022 8:00am 6.2 6.0-8.3 [facility] [address] [place] [address] 66164 Albumin December 28, 2022 8:00am 3.3 3.2-5.2 [facility] [address] [place] [address] 34476 Globulin December 28, 2022 8:00am 2.9 2.6-4.6 [facility] [address] [place] [address] 79824 Albumin/Globu selin Ratio December 28, 2022 8:00am 1.1 1.1-2.5 [facility] [address] [place] [address] 36541 Aspartate Amino Transf (AST/SGOT) December 28, 2022 8:00am 124 5-34 [facility] [address] [place] [address] 51984 Alkaline Phosphatase December 28, 2022 8:00am 34 40-150 [facility] [address] [place] [address] 31014 Alanine Aminotransfer ase (ALT/SGPT) December 28, 2022 8:00am 24 0-55 [facility] [address] [place] [address] 32552 Magnesium Level December 27, 2022 10:00pm 2.8 1.6-2.6 Result verified by repeat testing.Slight hemolysis present. Result may be affected. [facility] [address] [place] [address] 78058 C-Reactive Protein December 28, 2022 8:00am 41.1 0.0-5.0 [facility] [address] [place] [address] 22199 Cholesterol Level December 28, 2022 3:59am 90 0-200 [facility] [address] [place] [address] 76969 Triglycerides Level December 28, 2022 3:59am 66.0 0.0-150.0 [facility] [address] [place] [address] 14617 HDL Cholesterol December 28, 2022 3:59am 27 40-100 [facility] [address] [place] [address] 21478 VLDL Cholesterol December 28, 2022 3:59am 13 5-40 [facility] [address] [place] [address] 11473 LDL Cholesterol December 28, 2022 3:59am 50 0.0-129.0 [facility] [address] [place] [address] 51899 Troponin December 28, 2022 8:00am 39.329 0.030-0.11 8 Critical result called by DERIC at 2022-12-28 08:53:15 to AMADOR TURNER RN and R/V. [facility] [address] [place] [address] 61407 Vitamin B12 Level December 27, 2022 10:00pm 334 213-816 [facility] [address] [place] [address] 62732 Folic Acid (LAB) December 27, 2022 10:00pm 8.4 7.0-31.4 [facility] [address] [place] [address] 17006 Thyroid Stimulating Hormone (TSH) December 07, 2022 9:39am 2.2743 0.3500-4.9 400 [facility] [address] [place] [address] 47077 Hemoglobin A1c December 28, 2022 3:59am 4.9 0.0-6.4 HbA1c Value (%) Glycemic Goal<8 Less stringent<7 General (non- adults)<6.5 More stringent [facility] [address] [place] [address] 23739 Mean Blood Glucose December 28, 2022 3:59am 97.1 [facility] [address] [place] [address] 86624 Parathyroid Hormone (Intact) December 28, 2022 3:59am 108.3 8.7-77.1 [facility] [address] [place] [address] 33317 B-Type Natriuretic Peptide December 28, 2022 3:59am 2003.0 0.0-100.0 Plasma concentrations of natriuretic peptides may be elevated in patients with acute myocardial infarction and renal insufficiency. [facility] [address] [place] [address] 03742 Vitamin D 25-Hydroxy December 27, 2022 10:00pm 21.8 30-100 Vitamin D levels can be affected by concomitant disease, patient age, and can also vary by time of year. [facility] [address] [place] [address] 05794 Lactic Acid (Sepsis) December 28, 2022 1:05am 2.16 0.50-2.00 Critical result called by DARRON at 2022-12-28 01:25:56 to SHAYLEE SUTTON/JULIA and R/V. [facility] [address] [place] [address] 78558 Lactic Acid (Sepsis) Reflex December 28, 2022 3:59am 1.83 0.50-2.00 [facility] [address] [place] [address] 65714 Procalcitonin December 28, 2022 8:00am 1.59 0-0.05 [...] elevated, use complete clinical judgement for antibiotics. [facility] [address] [place] [address] 35500 Coronavirus (COVID-19)(PC R) December 28, 2022 9:20am NEGATIVE NEGATIVE Testing performed using [employer] COVID-19 PCR technology. This test was developed and its performance characteristics determined by [employer]. The test has not been FDA approved [...] this test report:Fact Sheet for Providers: https://www.fda .gov/media/6406 23/downloadFact Sheet for Patients: https://www.fda .gov/media/1546 24/downloadA positive test result for COVID-19 indicates [...] a final diagnosis and patient management decisions. [facility] [address] [place] [address] 13108 Bedside Troponin I December 27, 2022 10:04pm 0.58 0.03-0.118 POC INTERFACE [address] [place] [address] 56422 POC Glucose December 06, 2022 7:18pm 89 74-106 POC INTERFACE [address] [place] [address] 21686 Arterial Blood pH December 27, 2022 10:05pm 7.25 7.35-7.45 [facility] [address] [place] [address] 18109 Arterial Blood Partial Pressure CO2 December 27, 2022 10:05pm 40 35-45 [facility] [address] [place] [address] 33891 Arterial Blood Partial Pressure O2 December 27, 2022 10:05pm 155 80-100 [facility] [address] [place] [address] 60728 Arterial Blood Oxygen Saturation December 27, 2022 10:05pm 99 90-100 [facility] [address] [place] [address] 30068 Arterial Blood HCO3 December 27, 2022 10:05pm 17 22-26 [facility] [address] [place] [address] 76016 Arterial Blood Base December 27, 2022 10:05pm -10 -2-2 [facility] [address] [place] [address] 51540 Blood Gas Patient Conditions December 27, 2022 10:05pm BIPAP SETTINGS Mode: S/TRate: 10IPAP: 12 [id number]: 6 [id number]: 50 [facility] [address] [place] [address] 31518 Blood Gas Puncture Site December 27, 2022 10:05pm LT Radial [facility] [address] [place] [address] 61003 Beny Test December 27, 2022 10:05pm NOT OBTAINABLE [facility] [address] [place] [address] 58869 Blood Gas Comments December 27, 2022 10:05pm SITE HELD AND SEALED POSITIVE DISTAL PULSE NOTED. [facility] [address] [place] [address] 39819 Methicillin-R esist S.aureus DNA PCR December 28, 2022 9:20am NEGATIVE NEGATIVE Test is designed to detect MRSA colonization from nasal swabs in patients at risk for nasal colonization.Th is assay is not intended to diagnose MRSA nor to guide or monitor treatment of MRSA infections. [facility] [address] [place] [address] 70855 Diagnostic Imaging Reports Report Dictated Date/Time Dictated By Status December 06, 2022 5:47pm LATESHA Monterroso MD completed [address], [facility] [id number] --------- Patient: IRVING ACOSTA : 1945 Sex: M Address: Phone: Unit #: [id number] REQ SEQ #: [id number] Location: ED Room #: Ordering: JOSE COHEN [...] Signed by: LATESHA ANTOINE II, MD 12/06/22 5041 cc: JOSE COHEN PA-C, II,LATESHA Davis MD ~ Report Dictated Date/Time Dictated By Status December 06, 2022 5:48pm LATESHA Monterroso MD completed [address] [address] --------- Patient: IRVING ACOSTA : 1945 Sex: M Address: Phone: Unit #: [id number] REQ SEQ #: [id number] Location: ED Room #: Ordering: JOSE COHEN PA-C Diagnosis: CONFUSED CHEST PORTABLE - 1 VIEW History: CONFUSED CONFUSED Single view chest. Cardiomegaly. Vascular prominence. Status post median sternotomy. Negative for pneumothorax. IMPRESSION: Cardiomegaly and suggestion of vascular congestion. Final report electronically signed by: Latesha Antoine MD on 12/06/2022 5:48 PM Signed by: LATESHA ANTOINE II, MD 12/06/22 5088 cc: JOSE COHEN PA-C, II,LATESHA Davis MD ~ Report Dictated Date/Time Dictated By Status December 07, 2022 9:47am JAEL HYDE , [address] [address] --------- Patient: IRVING ACOSTA : 1945 Sex: M Address: [address] [place] [address] [place] [address] Unit #: [id number] REQ SEQ #: [id number] Location: [facility] Room #: -[id number] Ordering: SOLITARIO GALINDO MD Diagnosis: TIA -------- [...] December 07, 2022 8:22am LALY WHEELER MD [address] [id number] --------- Patient: IRVING ACOSTA : 1945 Sex: M Address: [address] [place] [address] [place] [address] Unit #: [id number] RE SEQ #: [id number] Location: [facility] Room #: [id number] Ordering: SOLITARIO GALINDO MD Diagnosis: TIA -------- [address] [address] Study Date: 12/07/2022 08:22 AM Name: IRVING ACOSTA Exam:Adult Echocardiogram : 1945 Age: 77 yrs Gender: Male Patient Location: [facility]^3[facility]^P Referring Physician: JOSIE Ordering Physician: SOLITARIO GALINDO Performed By: Giselle Skaggs MBA,RUST History: CABG,Hyperlipidemia,Hypertension,AVR Reason For Study: STROKE/ TIA [...] Referring Physician: JOSIE Performed By: Giselle Skaggs MBA,RUST Signed by: LALY WHEELER MD 12/07/22 1145 cc: SOLITARIO GALINDO MD,LALY Davis MD ~ Report Dictated Date/Time Dictated By Status December 07, 2022 4:13pm IRVING MARRERO MD completed [address] [address] --------- Patient: IRVING ACOSTA : 1945 Sex: M Address: [address] [place] [address] [place] [address] Unit #: [id number] [facility] SEQ #: [id number] Location: [facility] Room #: [id number] Ordering: SOLITARIO GALINDO MD Diagnosis: TIA -------- [...] PM Signed by: IRVING MARRERO MD 12/07/22 6529 cc: SOLITARIO GALINDO MD, JEFFREY MD ~ Report Dictated Date/Time Dictated By Status December 27, 2022 10:37pm Marian CATHERINE [address] [address] --------- Patient: IRVING ACOSTA : 1945 Sex: M Address: [address] [place] [address] [place] [address] Unit #: [id number] REQ SEQ #: [id number] Location: ED Room #: Ordering: LIANNE SEXTON [...] PM Signed by: ABBEY HARRIS MD 12/27/22 5834 cc: ABBEY HARRIS MD, SEAN MD ~ Report Dictated Date/Time Dictated By Status December 28, 2022 5:04am KENTON HAND MD completed [address] [address] --------- Patient: IRVING ACOSTA : 1945 Sex: M Address: [address] [place] [address] [place] [address] Unit #: [id number] REQ SEQ #: [id number] Location: [facility] Room #: [id number] Ordering: NITIN IGLESIAS MD Diagnosis: NSTEMI/PULMONARY EDEMA [...] AM Signed by: KENTON HAND MD 12/28/22 9276 cc: HAND,NITIN LAU MD, MD ~ Report Dictated Date/Time Dictated By Status December 28, 2022 6:21am KENTON HAND MD [address] [address] --------- Patient: IRVING ACOSTA : 1945 Sex: M Address: [address] [place] [address] [place] [address] Unit #: [id number] RE SEQ #: [id number] Location: [facility] Room #: [id number] Ordering: NITIN IGLESIAS MD Diagnosis: NSTEMI/PULMONARY EDEMA [...] 28, 2022 8:18am GE WESTFALL MD completed [address] [address] --------- Patient: IRVING ACOSTA : 1945 Sex: M Address: [address] [place] [address] [place] [address] Unit #: [id number] REQ SEQ #: [id number] Location: [facility] Room #: [id number] Ordering: NITIN IGLESIAS MD Diagnosis: NSTEMI/PULMONARY EDEMA ---- [address] [address] Study Date: 12/28/2022 08:18 AM Name: IRVING ACOSTA Exam:Adult Echoc ardiogram : 1945 Age: 77 yrs Gender: Male Patient Location: [place] [address]^ Referring Physician: HARRIS Ordering Physician: NITIN IGLESIAS [...] 69 [in_i] December 28, 2022 12:08am Height 175.170803 cm December 28 12:08am Weight 268.74 [lb_av] December 28 12:08am Weight 121.9000 kg December 28, 2022 12:08am Advance Directives Advance Directive Response Recorded Date/ Time Does the Patient Have an Advance Directive? December 28, 2022 1:00am Is The Patient An Organ Donor? A pril 2022 1:00am Insurance Providers Guarantor Irving Acosta Address [address] [facility] [address] Contact Info. Home Phone: Payer Policy Id Coverage Id Subscriber's Name Subscriber Id Effective Date Expiration Date Medicare A&B [id number] Irving Acosta [id number] Out Of State Ppo [id number] Irving Acosta [id number] Encounters Encounter Location(s) Arrival/Admit Date Discharge/Depart Date Provider(s) Discharged Inpatient [facility] December 27, 2022 11:14pm December 28, 2022 12:20pm RADHA BIRMINGHAM DO Discharged Inpatient (obs) [facility] December 06, 2022 8:25pm December 07, 2022 [...] 2022 9:30am Respiratory Syncytial Virus (RT-PCR December 28 023 9:30am Ionized Calcium (Measured) December 28, [...] Consult for Admit December 06, 2022 7:52pm [facility] 2022 7:52pm Admission Orders December 06, [...] December 28, 2022 4:55am December 282022 4:55am HEAD INSPECTOR CONSULT December 28, 2022 6:22am Apri l [...] 8 :05am December 28, 2022 8:04am Bedside Vacuum Furnace Operator December 28, 2022 8:05am A pril 2022 [...]
--- OUTSIDE RECORDS SUMMARY | 2024-09-23 14:19 | XMS_ITS | Encounter Summary ---
Author Organization [facility] [place] [address] Care Team Providers Care Timber Robber Name Role Phone Doug Valderrama MD Primary Care Provider [phone] Encounter Details Date Type Department Care Team (Late st Contact Info) Description 03/14/2024 Refill Dermatology at [facility] [address] [place] [address] Joyce Snyder MD [facility] [place] [address] [place] [address] Social History Tobacco Use Types Packs/Day Years [...] 2:00 PM EDT Office Visit Dermatology at [facility] [address] [place] [id number] Joyce Snyder MD [facility] [place] [place] [address] documented as of this encounter Goals Goal Patient Goal Type Associated Problems Recent Progress Patient-Stated? Author DH Home Medication Compliance and Understanding Patient Facing Action Plan On track( 018 9:29 AM EST) Jono Madrid, [facility] Note: Patient's specific desired goal: Reduction in psoriasis patches and psoriatic arthritis pain / symptoms. Measured by: pain scale, joints affected, BSA affected by psoriasis Time-frame to meet goal: ongoing - mostly effective at this time documented as of this encounter Visit Diagnoses Not on filedocumented in this encounter Care Teams Timber Robber Relationship Specialty Start Date End Date Doug Valderrama MD [address] [place] [address] PCP - General Family Medicine 02/26/23 documented as of this encounter
--- OUTSIDE RECORDS SUMMARY | 2024-09-23 14:20 | XMS_ITS | Encounter Summary ---
Author Organization [facility] [place] [address] Care Team Providers Care Wire Charger Name Role Phone Carlos Hernandez DO Primary Care Provider [phone] Reason for Referral * Consultation (Routine) - Closed Specialty Diagnoses / Procedures Referred By Contact Referred To Contact Electrophysiology / Cardiology Diagnoses Cardiac pacemaker in situ Bradycardia PCM check Doug Valderrama MD [address] [place] [address] [facility] [address] [place] [phone] Referral ID Status Reason Start Date Expiration Date V isits Requested Visits Authorized [id number] Closed Consult, Test & Treat PCP Updated and/or Approved 02/22/2023 02/22/2024 1 Encounter Details Date Type Department Care Team (Late st Contact Info) Description 02/22/2023 Transcribe Orders eDH Incoming Referrals [phone] Doug Valderrama MD [address] [place] [address] Cardiac pacemaker in situ; Bradycardia Social History Tobacco Use Types Packs/Day [...] 2:00 PM EDT Office Visit Dermatology at [facility] [address] [place] [address] Joyce Snyder MD [facility] [place] [address] Scheduled Referrals Name Type Priority Associated Diagnoses Order Schedule Referral to Cardiac Electrophysiology Outpatient Referral Routine Cardiac pacemaker in situ Bradycardia Ordered: 02/22/2023 documented as of this encounter Goals Goal Patient Goal Type Associated Problems Recent Progress Patient-Stated? Author DH Home Medication Compliance and Understanding Patient Facing Action Plan On track( 018 9:29 AM EST) Jono Madrid, [facility] Note: Patient's specific desired goal: Reduction in psoriasis patches and psoriatic arthritis pain / symptoms. Measured by: pain scale, joints affected, BSA affected by psoriasis Time-frame to meet goal: ongoing - mostly effective at this time documented as of this encounter Visit Diagnoses Diagnosis Cardiac pacemaker in situ Bradycardia Other specified cardiac dysrhythmias documented in this encounter Care Teams Wire Charger Relationship Specialty Start Date End Date Carlos Hernandez DO [address] [place] [address] [address] [place] [address] PCP - General 08/16/10 02/25/23 documented as of this encounter
--- OUTSIDE RECORDS SUMMARY | 2024-09-23 14:20 | XMS_ITS | Encounter Summary ---
Author Organization [facility] [place] [address] Care Team Providers Care Behavioral Medical Director Name Role Phone Carlos Hernandez DO Primary Care Provider [phone] Reason for Visit * Reason Comments Medication Management Encounter Details Date Type Department Care Team (Late st Contact Info) Description 12/16/2020 Specialty [place] [address] Mary Ann Daniel RPH Social History Tobacco Use Types Packs/Day [...] of this encounter Progress Notes * Mary Ann Daniel RPH - 12/16/2020 1:35 PM EDT Clinical Management Plan: Transfer of Care/Discharge Specialty Services Specialty Pharmacy Consultation; Mary Ann Daniel RPH Comprehensive Medication Management (CMM) Raghu Rosenthal [address] [facility] [address] Telephone Information: Work Phone Not on file. Mobile Not on file. Is the patient transferring services to a different Specialty Pharmacy or discontinuing the medication? yes Medication: Cosentyx Reason for discontinuation or transfer: ineffective Approximate date of discontinuation or transfer: 12/14/20 Patient's response to therapy: poor Summary of services provided by [facility] Special[facility]: routine refills and consultations Summary of on-going needs: none Referral for additional services (if applicable): no Is patient aware of referral? N/A Instructions provided to patient about discharge/transfer: no Provider aware of discontinuation or transfer: yes Patient understands no changes to current drug regimen were made at the appointment and that [facility] is[facility] (summary located at top of note) for provider review and follow up. Mary Ann Daniel RPH 12/16/20 1:38 PM documented in this encounter Plan of Treatment Upcoming Encounters Date Type Department Care Team (Late st Contact Info) Description 12/18/2024 2:00 PM EDT Office Visit Dermatology at [place] [address] [place] [address] Joyce Snyder MD [facility] [place] [address] documented as of this encounter Goals Goal Patient Goal Type Associated Problems Recent Progress Patient-Stated? Author DH Home Medication Compliance and Understanding Patient Facing Action Plan On track( 018 9:29 AM EST) No Jono Reed, [facility] Note: Patient's specific desired goal: Reduction in psoriasis patches and psoriatic arthritis pain / symptoms. Measured by: pain scale, joints affected, BSA affected by psoriasis Time-frame to meet goal: ongoing - mostly effective at this time documented as of this encounter Visit Diagnoses Not on filedocumented in this encounter Care Teams Behavioral Medical Director Relationship Specialty Start Date End Date Carlos Hernandez DO [address] [place] [address] PCP - General 08/16/10 02/25/23 documented as of this encounter
--- OUTSIDE RECORDS SUMMARY | 2024-09-23 14:20 | XMS_ITS | Encounter Summary ---
Author Organization [place] [address] Care Team Providers Care Tilt Wall Supervisor Name Role Phone Carlos Hernandez DO Primary Care Provider Encounter Details Date Type Department Care Team (Late st Contact Info) Description 09/11/2019 1:30 PM EST Office Visit Dermatology at [address] [address] Holli Berrios MD Psoriasis; Psoriatic arthritis Social History Tobacco Use Types Packs/Day Years [...] as of this encounter Progress Notes * Holli Berrios MD - 09/11/2019 1:30 PM EST DERMATOLOGY OUTPATIENT CLINIC NOTE Date of service: 09/11/2019 Raghu Rosenthal : 1945 Provider: Holli Berrios MD PROBLEM: F/U SKIN HISTORY: psoriasis HPI Raghu Rosenthal is a 74 y.o. year old male. Patient is here today for a F/u of his psoriasis. Currently on secukinumab as per rheumatology. He states that it is not doing well. He states that it is worse, the Triamcinolone ointment seems to work (needs a refill). Wondering if there is anything stronger to help. He also feels his joints are flaring. Has tried Stelara and Enbrel in the past. He notes that his joints continue to bother him. They will be leaving for [place] in September and will return in January. 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 Family History: Lupus ADR: Allergies Allergen Reactions ??? Venom-Honey Bee Shortness Of Breath ??? Vicodin [Hydrocodone-Acetaminophen] Shortness Of Breath Problems breathing ??? Morphine Sulfate Nausea And Vomiting ??? Arava [Leflunomide] Rash RASH ??? Clarithromycin ??? Hydrocodone Bitartrate ??? Indomethacin ??? Lansoprazole ??? Lipitor [Atorvastatin] Joint pain ??? Other [Unclassified Drug] Nausea And Vomiting and Other (See Comments) IV dyes all extremtites cold ??? Pravastatin Sodium ??? Tetracyclines CURRENT MEDICATIONS: Current Outpatient Medications Medication Sig Dispense Refill ??? betamethasone dipropionate (DIPROLENE) 0.05 % Cream Apply to the affected areas on the back andflanks twice daily, as needed. 45 g 1 ??? betamethasone dipropionate (DIPROLENE) 0.05 % Lotion Apply to the affected areas on the scalp every other day. [place]-smoothe oil for more severe flares on the scalp. 60 mL 1 ??? rosuvastatin (CRESTOR) 10 mg Tablet Take 1 tablet by mouth daily. 90 tablet 1 ??? amLODIPine (NORVASC) 5 mg Tablet Take 1 tablet by mouth daily. Take each evening in addition totaking the 10 mg each morning 90 tablet 5 ??? triamcinolone (KENALOG) 0.1 % Ointment Twice daily to psoriasis plaques on trunk/extremities for 1 week on, 1 week off as needed 454 g 0 ??? fluocinolone (DERMA-SMOOTHE) 0.01 % Oil Apply to scalp nightly for 1 week, then decrease to 2x weekly as needed. 120 mL 3 ??? metFORMIN (GLUCOPHAGE) 500 mg Tablet Take 500 mg by mouth 2 times daily (with meals). 0 ??? secukinumab (COSENTYX, 2 SYRINGES,) 150 mg/mL Syringe Inject 300 mg subcutaneously every 28 days. 6 Syringe 3 ??? diclofenac (VOLTAREN) 1 % Gel Apply 2 g topically 4 times daily. 100 g 3 ??? spironolactone (ALDACTONE) 25 mg Tablet Take 25 mg by mouth daily. ??? hydroCHLOROthiazide (HYDRODIURIL) 25 mg Tablet Take 25 mg by mouth daily. 4 ??? amLODIPine (NORVASC) 10 mg Tablet TAKE ONE TABLET BY MOUTH EVERY DAY 3 ??? escitalopram (LEXAPRO) 20 mg Tablet Take 20 mg by mouth daily. ??? traZODone (DESYREL) 100 mg Tablet Take 100 mg by mouth nightly. ??? mometasone (NASONEX) 50 mcg/actuation [place], Non-Aerosol 1 spray by Each Nare route as needed. Indications: as needed ??? EPINEPHrine (EPIPEN) 0.3 mg/0.3 mL (1:1,000) Auto-Injector Inject 0.3 mg into the muscle once. Reported on 04/20/2017 ??? losartan (COZAAR) 100 mg Tablet Take 100 mg by mouth daily. ??? tiotropium (SPIRIVA WITH HANDIHALER) 18 mcg Capsule, w/Inhalation Device Inhale 18 mcg into thelungs daily as needed. ??? acetaminophen (TYLENOL) 500 mg tablet Take 2 tablets by mouth every 6 hours. (Patient taking differently: Take 1,000 mg by mouth as needed.) 30 tablet ??? amoxicillin (AMOXIL) 500 mg capsule Take 2,000 mg by mouth See Admin Instructions. Takes beforeDental procedure. TAKE 4 TABLETS ONE HOUR BEFORE DENTAL PROCEDURES ??? aspirin 81 mg chewable tablet Take 81 mg by mouth daily. ??? Fenofibric Acid (TRILIPIX) 135 mg CpDR Take 1 tablet by mouth daily. ??? ranitidine (ZANTAC) 150 mg tablet Take 150 mg by mouth 2 times daily. No current facility-administered medications for this visit. PROBLEM LIST: Patient Active Problem List Diagnosis Code ??? Depression F32.9 ??? Psoriasis L40.9 ??? Obesity E66.9 ??? HTN (hypertension) I10 ??? Hyperlipidemia E78.5 ??? GERD (gastroesophageal reflux disease) K21.9 ??? Sleep apnea G47.30 ??? Former smoker Z87.891 ??? 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 Subarachnoid hemorrhage I60.9 ??? Fatty liver K76.0 ??? Pancreatitis K85.90 ??? Cholelithiasis K80.20 ??? Diverticulitis K57.92 ??? Abdominal panniculus E65 ??? (aortic stenosis) I35.0 ??? CAD (coronary artery disease) I25.10 ??? Psoriatic arthritis L40.50 ??? Bradycardia R00.1 ??? Osteoarthritis of both knees M17.0 ??? Diabetes mellitus E11.9 ROS General: feeling well. Oriented X 3. Skin: denies other skin complaints EXAM General: NAD, pleasant, cooperative Skin: A focused skin examination of the scalp, back and abdomen, significant for the following: Significant skin findings: -Scalp, abdomen, low back: thin pink psoriasiform plaques. ASSESSMENT/PLAN Psoriasis, plaque and psoriatic arthritis, not well controlled on secukinumab - patient does not feel well controlled on the secukinumab. We discussed switching to rizankizumab as he felt Stelara was more effective than the secukinumab and they are a similar class and MOA. Patient is in agreement. - Discussed switching to Skyrizi. Discussed risks of biologics, such as risk of infection. Speciality pharmacist in to discuss further. - Encouraged continued weight loss. - Keep up with routine health maintenance. - Refill and continue Rx: Betamethasone cream. Apply to the affected areas on the back and flanks twice daily, as needed. - Refill and continue Rx: Triamcinolone ointment. Apply to the affected areas on the back and flanks twice daily, as needed. - Continue Rx: Betamethasone lotion. Apply to the affected areas on the scalp every other day. - [place]-smoothe oil for more severe flares on the scalp. -Start rizankizumab: Inject 150 mg subcutaneously See Admin Instructions. Inject 150mg (2 syringes)subcutaneously at weeks 0, 4 and every 12 weeks thereafter. RTC - 6 months for a follow up on the above; sooner if needed. Reminder placed in system to schedule. Instructed patient to call with questions or concerns. Note initiated and routed to physician for review and change by: WILBER Son I, Lisa Elise, Clinical Scribe have performed the documentation for this encounter in the presence of and acting as a scribe for Holli Berrios MD. I, Dr. Holli Berrios, performed the visit service though my nurse assisted me in scribing the note. I reviewed and edited this note above, a scribed service performed by my nurse. On closure of this note I agree with the accuracy of the documentation. Holli Berrios MD Section of Dermatology [facility] documented in this encounter Plan of Treatment Upcoming Encounters Date Type Department Care Team (Late st Contact Info) Description 12/18/2024 2:00 PM EDT Office Visit Dermatology at [address] [address] Joyce Snyder MD [facility] [place] [address] documented as of this encounter Goals Goal Patient Goal Type Associated Problems Recent Progress Patient-Stated? Author DH Home Medication Compliance and Understanding Patient Facing Action Plan On track( 018 9:29 AM EST) Jono Madrid, [facility] Note: Patient's specific desired goal: Reduction in psoriasis patches and psoriatic arthritis pain / symptoms. Measured by: pain scale, joints affected, BSA affected by psoriasis Time-frame to meet goal: ongoing - mostly effective at this time documented as of this encounter Visit Diagnoses Diagnosis Psoriasis Other psoriasis Psoriatic arthritis Psoriatic arthropathy documented in this encounter Care Teams Tilt Wall Supervisor Relationship Specialty Start Date End Date Carlos Hernandez DO [address] [place] [address] [address] [place] [address] PCP - General 08/16/10 02/25/23 documented as of this encounter
--- OUTSIDE RECORDS SUMMARY | 2024-09-23 14:20 | XMS_ITS | Encounter Summary ---
Author Organization [facility] [place] [address] Care Team Providers Care Manager Documentation Name Role Phone Carlos Hernandez DO Primary Care Provider [phone] Encounter Details Date Type Department Care Team (Late st Contact Info) Description 12/23/2020 Telephone Dermatology at [facility] [address] [place] [address] Holli Berrios MD Social History Tobacco Use Types Packs/Day Years [...] encounter Miscellaneous Notes * Telephone Encounter - Jay Talavera LPN - 12/23/2020 11:00 AM EDT Patient called, reports that since he has started taking Prednisone his itching has decreased greatly which he is happy about, but he has been having some trouble sleeping. Advised this is a side effect of oral steroids. It is not interfering with his life as he is retired but wanted to make sure this is OK. He will be dropping down to 40mg of Prednisone from 60mg in a day or two, advised he may experience less side effects after tapering down but to call back if it continues and becomes problematic for him. documented in this encounter Plan of Treatment Upcoming Encounters Date Type Department Care Team (Late st Contact Info) Description 12/18/2024 2:00 PM EDT Office Visit Dermatology at [facility] [address] [place] [address] Joyce Snyder MD [facility] [place] [address] documented as of this encounter Goals Goal Patient Goal Type Associated Problems Recent Progress Patient-Stated? Author DH Home Medication Compliance and Understanding Patient Facing Action Plan On track( 018 9:29 AM EST) No Jono Reed, [facility] Note: Patient's specific desired goal: Reduction in psoriasis patches and psoriatic arthritis pain / symptoms. Measured by: pain scale, joints affected, BSA affected by psoriasis Time-frame to meet goal: ongoing - mostly effective at this time documented as of this encounter Visit Diagnoses Not on filedocumented in this encounter Care Teams Manager Documentation Relationship Specialty Start Date End Date Carlos Hernandez DO [address] [place] [address] PCP - General 08/16/10 02/25/23 documented as of this encounter
--- OUTSIDE RECORDS SUMMARY | 2024-09-23 14:20 | XMS_ITS | Encounter Summary ---
Author Organization [place] [address] Care Team Providers Care E Commerce Solution Architect Name Role Phone Carlos Hernandez DO Primary Care Provider Encounter Details Date Type Department Care Team (Late st Contact Info) Description 12/31/2020 Notes Only Dermatology at [facility] [address] [place] [address] Caryl Phipps MD Social History Tobacco Use Types Packs/Day [...] as of this encounter Progress Notes * Caryl Phipps MD - 12/31/2020 8:40 AM EDT Images from the original note were not included. DERMATOLOGY [place] NOTE 12/31/20 Raghu Rosenthal [id number] Background: 75M with rash on the lower legs and back. Differential Diagnosis: ?? Eczematous dermatitis ?? Tinea ?? Stasis dermatitis ?? Id Reaction ?? CTCL Recommendations for Further Work-up and Treatment: ?? Repeat biopsy, +/- clonality ?? Protopic ?? Close clinical monitoring ?? Consider tanning lee A copy of today's impressions and recommendations will be forwarded to the patient's primary six sigma black belt engineer, Dr. Berrios. Reviewed and signed by: Caryl Phipps MD Resident in Dermatology [facility] Staff six sigma black belt engineer: Lesia Van MD Department of Dermatology [facility] documented in this encounter Plan of Treatment Upcoming Encounters Date Type Department Care Team (Late st Contact Info) Description 12/18/2024 2:00 PM EDT Office Visit Dermatology at [address] [address] Joyce Snyder MD [facility] [place] [address] documented as of this encounter Goals Goal Patient Goal Type Associated Problems Recent Progress Patient-Stated? Author DH Home Medication Compliance and Understanding Patient Facing Action Plan On track( 018 9:29 AM EST) Jono Madrid, [facility] Note: Patient's specific desired goal: Reduction in psoriasis patches and psoriatic arthritis pain / symptoms. Measured by: pain scale, joints affected, BSA affected by psoriasis Time-frame to meet goal: ongoing - mostly effective at this time documented as of this encounter Visit Diagnoses Not on filedocumented in this encounter Care Teams E Commerce Solution Architect Relationship Specialty Start Date End Date Carlos Hernandez DO [address] [place] [address] [address] [facility] [address] [place] [address] PCP - General 08/16/10 02/25/23 documented as of this encounter
--- OUTSIDE RECORDS SUMMARY | 2024-09-23 14:20 | XMS_ITS | Encounter Summary ---
Author Organization [facility] [place] [address] Care Team Providers Care Watch Inspector Final Movement Name Role Phone Carlos Hernandez DO Primary Care Provider [phone] Reason for Visit * Reason Comments Follow-up Psoriasis Encounter Details Date Type Department Care Team (Late st Contact Info) Description 06/20/2019 1:30 PM EDT Office Visit Dermatology at [facility] [address] [place] [address] Holli Berrios MD Psoriasis Social History Tobacco Use Types Packs/Day Years [...] Progress Notes * Holli Berrios MD - 06/20/2019 1:30 PM EDT DERMATOLOGY OUTPATIENT CLINIC NOTE Date of service: 06/20/2019 Raghu Rosenthal : 1945 Provider: Holli Berrios MD PROBLEM: follow up SKIN HISTORY: psoriasis HPI Raghu Rosenthal is a 73 y.o.male. Established pt here for posoriasis on his scalp. He has been using derma-smoothe sparingly. It has improved. He has been using triamcinolone ointment and the itchinghas gotten worse. 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 rosuvastatin (CRESTOR) 10 mg Tablet Take [...] mouth nightly. ??? mometasone (NASONEX) 50 mcg/actuation [place], Non-Aerosol 1 spray by Each Nare route [...] skin examination of the scalp, back and flanks, significant for the following: Significant skin findings: -Scalp: diffuse erythema with scale. -Low back, flanks: pink patches with thin scale ASSESSMENT/PLAN Psoriasis - Overall well controlled on Cosentyx managed by rheumatology. - Start Rx: Betamethasone cream. Apply to the affected areas on the back and flanks twice daily, asneeded. - Start Rx: Betamethasone lotion. Apply to the affected areas on the scalp every other day. - [place]-smoothe oil for more severe flares on the scalp. RTC - 3-4 months for a follow up on the above; sooner if needed. Appointment scheduled before exiting. Instructed patient to call with questions or concerns. As scheduled for 09/11/19 @ 1:30 PM Note initiated and routed to physician for review and change by: JESIKA PATTON LPN I, Lisa Elise, Clinical Scribe have performed [...] documentation. Holli Berrios MD Section of Dermatology [facility] documented in this encounter Plan of Treatment Upcoming Encounters Date Type Department Care Team (Late st Contact Info) Description 12/18/2024 2:00 PM EDT Office Visit Dermatology at [facility] [address] [facility] [place] [address] Joyce Snyder MD [facility] [place] [address] documented as of this encounter Goals Goal Patient Goal Type Associated Problems Recent Progress Patient-Stated? Author DH Home Medication Compliance and Understanding Patient Facing Action Plan On track( 018 9:29 AM EST) Jono Madrid, [facility] Note: Patient's specific desired goal: Reduction in psoriasis patches and psoriatic arthritis pain / symptoms. Measured by: pain scale, joints affected, BSA affected by psoriasis Time-frame to meet goal: ongoing - mostly effective at this time documented as of this encounter Visit Diagnoses Diagnosis Psoriasis Other psoriasis documented in this encounter Care Teams Watch Inspector Final Movement Relationship Specialty Start Date End Date Carlos Hernandez DO [address] [place] [address] PCP - General 08/16/10 02/25/23 documented as of this encounter
--- OUTSIDE RECORDS SUMMARY | 2024-09-23 14:20 | XMS_ITS | Encounter Summary ---
Author Organization [facility] Address [facility] [place] [address] Care Team Providers Care Respiratory Manager Name Role Phone Doug Valderrama MD Primary Care Provider [phone] Encounter Details Date Type Department Care Team (Latest Contact Info) Description 03/06/2023 Travel Social History Tobacco Use Types Packs/Day [...] 2:00 PM EDT Office Visit Dermatology at [facility] [address] [place] [address] Joyce Snyder MD [facility] [place] [address] documented as of this encounter Goals Goal Patient Goal Type Associated Problems Recent Progress Patient-Stated? Author Home Medication Compliance and Understanding Patient Facing Action Plan On track( 018 9:29 AM EST) No Jono Reed, [facility] Note: Patient's specific desired goal: Reduction in psoriasis patches and psoriatic arthritis pain / symptoms. Measured by: pain scale, joints affected, BSA affected by psoriasis Time-frame to meet goal: ongoing - mostly effective at this time documented as of this encounter Visit Diagnoses Not on filedocumented in this encounter Care Teams Respiratory Manager Relationship Specialty Start Date End Date Doug Valderrama MD [address] [place] [address] PCP - General Family Medicine 02/26/23 documented as of this encounter
--- OUTSIDE RECORDS SUMMARY | 2024-09-23 14:20 | XMS_ITS | Encounter Summary ---
Author Organization Formerly [facility] Address [facility] [place] [address] Care Team Providers Care Traffic Attendant Name Role Phone Carlos Hernandez DO Primary Care Provider [phone] Reason for Visit * Reason Onset Date Comments Medication Refill 01/09/2020 Encounter Details Date Type Department Care Team (Late st Contact Info) Description 01/09/2020 Refill Dermatology at [facility] [address] [place] [phone] Holli Berrios MD Psoriasis Social History Tobacco [...] 2:00 PM EDT Office Visit Dermatology at [facility] [address] [place] [phone] Joyce Snyder MD [facility] [place] [address] documented as of this encounter Goals Goal Patient Goal Type Associated Problems Recent Progress Patient-Stated? Author DH Home Medication Compliance and Understanding Patient Facing Action Plan On track( 018 9:29 AM EST) Jono Madrid, [facility] Note: Patient's specific desired goal: Reduction in psoriasis patches and psoriatic arthritis pain / symptoms. Measured by: pain scale, joints affected, BSA affected by psoriasis Time-frame to meet goal: ongoing - mostly effective at this time documented as of this encounter Visit Diagnoses Diagnosis Psoriasis Other psoriasis documented in this encounter Care Teams Traffic Attendant Relationship Specialty Start Date End Date Carlos Hernandez DO [address] [place] [address] PCP - General 08/16/10 02/25/23 documented as of this encounter
--- OUTSIDE RECORDS SUMMARY | 2024-09-23 14:20 | XMS_ITS | Encounter Summary ---
[place] [address] Care Team Providers Care Dictating Machine Mechanic Name Role Phone Carlos Hernandez DO Primary Care Provider [phone] Encounter Details Date Type Department Care Team (Late st Contact Info) Description 06/30/2020 Telephone [place] [phone] Nelida Kelley CPHT Social History Tobacco Use Types Packs/Day Years [...] encounter Miscellaneous Notes * Telephone Encounter - Nelida Kelley - 06/30/2020 10:57 AM EDT Clinical Management Plan: Refill Specialty Pharmacy Consultation; Nelida Kelley Comprehensive Medication Management (CMM) Raghu Rosenthal Mr. Raghu Rosenthal is a 74 y.o. (1945) male who was contacted in regard to a specialty medication refill reminder. Spoke with patient regarding Cosentyx. A review of the medication therapy wasperformed. The medication was refilled as scheduled, and all medication related questions and concerns were addressed. The specialty pharmacy staff will follow up with the patient 5-7 days prior to next refill. Was a change made to the Care Plan: No Allergies and Drug intolerance: Allergies Allergen Reactions ??? Venom-Honey Bee Shortness Of Breath ??? Vicodin [Hydrocodone-Acetaminophen] Shortness Of Breath Problems breathing ??? Morphine Sulfate Nausea And Vomiting ??? Arava [Leflunomide] Rash RASH ??? Clarithromycin ??? Hydrocodone Bitartrate ??? Indomethacin ??? Lansoprazole ??? Lipitor [Atorvastatin] Joint pain ??? Other [Unclassified Drug] Nausea And Vomiting and Other (See Comments) IV dyes all extremtites cold ??? Pravastatin Sodium ??? Tetracyclines Medication Reconciliation Discrepancies (compared to [facility] med list) No New medications: No New medical conditions: No New allergies: No Adherence: Any missed doses? No Are you experiencing any side effects from your medications? No Patient understands no changes to current drug regimen were made.. Nelida Kelley 06/30/20 10:57 AM documented in this encounter Plan of Treatment Upcoming Encounters Date Type Department Care Team (Late st Contact Info) Description 12/18/2024 2:00 PM EDT Office Visit Dermatology at [address] [address] Joyce Snyder MD [facility] [place] [address] documented as of this encounter Goals Goal Patient Goal Type Associated Problems Recent Progress Patient-Stated? Author DH Home Medication Compliance and Understanding Patient Facing Action Plan On track( 018 9:29 AM EST) No Jono Reed, [facility] Note: Patient's specific desired goal: Reduction in psoriasis patches and psoriatic arthritis pain / symptoms. Measured by: pain scale, joints affected, BSA affected by psoriasis Time-frame to meet goal: ongoing - mostly effective at this time documented as of this encounter Visit Diagnoses Not on filedocumented in this encounter Care Teams Dictating Machine Mechanic Relationship Specialty Start Date End Date Carlos Hernandez DO [address] [place] [address] PCP - General 08/16/10 02/25/23 documented as of this encounter
--- OUTSIDE RECORDS SUMMARY | 2024-09-23 14:20 | XMS_ITS | Encounter Summary ---
Author Organization [facility]ly [facility] [place] [address] Care Team Providers Care Duplicating Machine Mechanic Name Role Phone Carlos Hernandez DO Primary Care Provider [phone] Reason for Visit * Reason Comments Medication Management Patient Education Encounter Details Date Type Department Care Team (Late st Contact Info) Description 01/19/2020 Specialty [place] [phone] Izabel Cardenas RPH Social History Tobacco Use Types Packs/Day [...] as of this encounter Progress Notes * Izabel Cardenas RPH - 01/19/2020 10:07 AM EDT Specialty Pharmacy Consultation; Izabel Cardenas RPH Comprehensive Medication Management (CMM): Specialty Consult, Opt Out Raghu Rosenthal Diagnosis: Psoriatic Arthritis Therapy Start Date: TBD - New Start Contact in person or via telephone:Telephone Mr. Raghu Rosenthal is a 74 y.o. (1945) male who was contacted in regard to specialty medication. Spoke with patient's Cathy regarding Cosentyx. A review of the medication therapy was performed. The medication was filled as scheduled, and all medication related questions and concerns were addressed. The specialty pharmacy staff will follow up with the patient 7 days prior to next refill. Is the patient willing to proceed with the Clinical Assessment? No Summary and Recommendations: Patient had been on Cosentyx historically. He switched to Skyrizi in August 2019, but was not happy with the outcomes of that medication and requested switching back to Cosentyx. Patient is comfortable with the medication and injection process. Loading dose schedule was reviewed. There were no questions or concerns at this time. Medication will be sent FedEx and anticipated delivery date is 01/23/2020. Economic Assessment: Patient is agreeable to medication copay: Yes Copay Amount: $0.00 Day Supply: 63 Date Needed: New Start (patient will receive via FedEx on 01/23/2020) Therapy Assessment: Appropriate Therapy: Yes Current Medication Dosing/Route/Frequency: Cosentyx 150mg/ml syringe - Inject the contents of 2 syringes (300mg) subcutaneously every 7 days for 5 doses (weeks 0,1,2,3,4) then inject 2 syringes (300mg) subcutaneously every 28 days thereafter. Additional equipment/supplies required: no Care Plan Reviewed and Approved by Pharmacist : Yes Medications Reviewed: Yes Medications reconciled: No Allergies Reviewed:Yes Allergies reconciled: No Pharmacist follow-up needed: No Informed patient of specialty pharmacy services: Yes -Patient will be provided with welcome packet: Yes Date to be provided: 08/14/2018 Delivery Method: Mail -Patient returned signed Rights & Responsibilities: Yes Date to be provided: 08/14/2018 Delivery Method: Mail -Patient is aware a licensed pharmacist is available 24 hours a day, 7 days a week to discuss medication-related questions or concerns: Yes -Patient verbalizes understanding of the common side effect profile of their medication. The patient is able to call 911 or seek urgent care if signs/symptoms of allergy or harmful adverse reactions occur: Yes Patient understands no changes to current drug regimen were made at the appointment and that the pharmacist is providing recommendations (summary located at top of note) for provider review and follow up. Izabel Cardenas RPH 01/19/20 10:07 AM documented in this encounter Plan of Treatment Upcoming Encounters Date Type Department Care Team (Late st Contact Info) Description 12/18/2024 2:00 PM EDT Office Visit Dermatology at [facility] [address] [place] [address] Joyce Snyder MD [facility] [place] [address] documented as of this encounter Goals Goal Patient Goal Type Associated Problems Recent Progress Patient-Stated? Author DH Home Medication Compliance and Understanding Patient Facing Action Plan On track( 018 9:29 AM EST) Jono Madrid [facility] Note: Patient's specific desired goal: Reduction in psoriasis patches and psoriatic arthritis pain / symptoms. Measured by: pain scale, joints affected, BSA affected by psoriasis Time-frame to meet goal: ongoing - mostly effective at this time documented as of this encounter Visit Diagnoses Not on filedocumented in this encounter Care Teams Duplicating Machine Mechanic Relationship Specialty Start Date End Date Carlos Hernandez DO [address] [place] [address] PCP - General 08/16/10 02/25/23 documented as of this encounter
--- OUTSIDE RECORDS SUMMARY | 2024-09-23 14:20 | XMS_ITS | Encounter Summary ---
Author Organization [facility] [place] [address] Care Team Providers Care Survey Director Name Role Phone Carlos Hernandez DO Primary Care Provider [phone] Reason for Visit * Reason Comments Medication Management Encounter Details Date Type Department Care Team (Late st Contact Info) Description 08/08/2019 Specialty [place] [phone] Kalin Dang RPH Social History Tobacco Use Types Packs/Day [...] as of this encounter Progress Notes * Kalin Vilchis RPH - 08/08/2019 10:32 AM EST Clinical Management Plan: Refill Specialty Pharmacy Consultation; Kalin Vilchis RPH Comprehensive Medication Management (CMM) Raghu Joel Ariadna Mr. Raghu Rosenthal is a 73 y.o. (1945) male who was contacted in regard to a specialty medication refill reminder. Spoke with patient regarding Cosentyx. A review of the medication therapy wasperformed. The medication was Refilled as scheduled, and all medication related questions and concerns were addressed. The specialty pharmacy staff will follow up with the patient 5-7 days prior to next refill. Was a change made to the Care Plan: no If yes, should the medication be held: No Assessment and Recommendations: Title Type of Medication Management: chronic disease management, targeted medication review Referred By: provider Recipient: beneficiary Provider: plan sponsor pharmacist Visit Type: [facility] Follow-up Method of Contact: by telephone Cognitive Ability: good Cognitive Impairment Status Verified this Year: no Allergies and Drug intolerance: Allergies Allergen Reactions [...] ??? Tetracyclines Medication Reconciliation Discrepancies (compared to [facility] med list) -None New medications: no New medical conditions: no New allergies: no Adherence: Medication Adherence Patient reported X missed doses in the last month: 0 Any gaps in refill history greater than 2 weeks in the last 3 months: no Demonstrates understanding of importance of adherence: yes Informant: spouse Reliability of informant: reliable Provider-estimated medication adherence level: 90-100% Reasons for non-adherence: no problems identified Adherence tools used: calendar, directed education Support network for adherence: family member Confirmed plan for next specialty medication refill: delivery by pharmacy Refills needed for supportive medications: not needed Are you experiencing any side effects from your medications? no Pt understands no changes to current drug regimen were made at the appointment and that [facility] is providing recommendations (summary located at top of note) for provider review and follow up. Kalin Vilchis RPH 08/08/19 10:33 AM documented in this encounter Plan of Treatment Upcoming Encounters Date Type Department Care Team (Late st Contact Info) Description 12/18/2024 2:00 PM EDT Office Visit Dermatology at [facility] [address] [place] [address] Joyce Snyder MD [facility] [place] [place] [address] documented as of this encounter Goals Goal Patient Goal Type Associated Problems Recent Progress Patient-Stated? Author DH Home Medication Compliance and Understanding Patient Facing Action Plan On track( 018 9:29 AM EST) Jono Madrid, [facility] Note: Patient's specific desired goal: Reduction in psoriasis patches and psoriatic arthritis pain / symptoms. Measured by: pain scale, joints affected, BSA affected by psoriasis Time-frame to meet goal: ongoing - mostly effective at this time documented as of this encounter Visit Diagnoses Not on filedocumented in this encounter Care Teams Survey Director Relationship Specialty Start Date End Date Carlos Hernandez DO [address] [place] [address] [address] [place] [address] PCP - General 08/16/10 02/25/23 documented as of this encounter
--- OUTSIDE RECORDS SUMMARY | 2024-09-23 14:20 | XMS_ITS | Encounter Summary ---
Author Organization [place] [address] Care Team Providers Care Hydraulic Press Tender Name Role Phone Carlos Hernandez DO Primary Care Provider Reason for Visit * Reason Comments Follow-up Encounter Details Date Type Department Care Team (Late st Contact Info) Description 12/16/2020 1:00 PM EDT Office Visit Dermatology at [facility] [address] [place] [address] Holli Berrios MD Neoplasm of uncertain behavior; Dermatitis Social History Tobacco Use Types Packs/Day Years [...] Progress Notes * Holli Berrios MD - 12/16/2020 1:00 PM EDT Images from the original note were not included. DERMATOLOGY OUTPATIENT CLINIC NOTE Date of service: 12/16/2020 Raghu Welch : 1945 Provider: Holli Berrios MD PROBLEM: Follow up of eczema SKIN HISTORY: - Psoriasis -Started on Cosentyx in 2018 -But is not improving and moved to [facility]-minimal improvement -Back to Cosentyx in September 2019- present HPI Raghu Rosenthal is a 75 y.o. year old male. Here today for eczema follow up with the following concerns; - He notes he has been very itchy and the areas sometimes bleed. It is hard for him to sleep sometimes. He is using the Triamcinolone cream twice daily in the mornings and before bed. He feels it is helpful. - He has stopped Cosentyx and Omeprazole on October 10 and didn't notice much change afterwards. He still takes Omeprazole once in awhile. 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 Family History: Lupus?? ADR: Allergies Allergen Reactions ??? Venom-Honey Bee [...] Outpatient Medications Medication Sig Dispense Refill ??? triamcinolone (KENALOG) 0.1 % Cream Apply topically to rash 1-2 times daily as needed 454 g 2 ??? omeprazole (PriLOSEC) 20 mg Capsule, Delayed Release(E.C.) Take 20 mg by mouth daily. ??? betamethasone dipropionate (DIPROLENE) 0.05 % Ointment Apply twice a day to bilateral hands andfeet as needed. 45 g 1 ??? secukinumab (Cosentyx, 2 Syringes,) 150 mg/mL Syringe Inject 300 mg subcutaneously every 28 days. 6 Syringe 3 ??? secukinumab (Cosentyx, 2 Syringes,) 150 mg/mL Syringe Inject 300 mg subcutaneously once a week.At weeks 0, 1, 2, 3, and 4. 10 Syringe 0 ??? betamethasone dipropionate (DIPROLENE) 0.05 % Cream Apply to the affected areas on the back andflanks twice daily, as needed. 45 g 1 ??? betamethasone dipropionate (DIPROLENE) 0.05 % Lotion Apply to the affected areas on the scalp every other day. [place] Speed-smoothe oil for more severe flares on the scalp. 60 mL 1 ??? rosuvastatin (CRESTOR) 10 mg Tablet Take 1 tablet by mouth daily. 90 tablet 1 ??? amLODIPine (NORVASC) 5 mg Tablet Take 1 tablet by mouth daily. Take each evening in addition totaking the 10 mg each morning 90 tablet 5 ??? fluocinolone (DERMA-SMOOTHE) 0.01 % Oil Apply to scalp nightly for 1 week, then decrease to 2x weekly as needed. 120 mL 3 ??? metFORMIN (GLUCOPHAGE) 500 mg Tablet Take 500 mg by mouth 2 times daily (with meals). 0 ??? diclofenac (VOLTAREN) 1 % Gel Apply [...] Take 100 mg by mouth nightly. ??? EPINEPHrine (EPIPEN) 0.3 mg/0.3 mL (1:1,000) Auto-Injector Inject 0.3 mg into the muscle once. Reported on 04/20/2017 ??? losartan (COZAAR) 100 mg Tablet Take 100 mg by mouth daily. ??? acetaminophen (TYLENOL) 500 mg tablet Take [...] Diverticulitis K57.92 ??? Abdominal panniculus E65 ??? Nonrheumatic aortic (valve) stenosis I35.0 ??? CAD (coronary artery disease) I25.10 ??? Psoriatic arthritis L40.50 ??? Bradycardia R00.1 ??? Osteoarthritis of both knees M17.0 ??? Diabetes mellitus E11.9 ROS General: feeling well. Oriented X 3. Skin: denies other skin complaints EXAM General: NAD, pleasant, cooperative Skin: Focused skin examination of the buttocks and waist up was normal with the exception of the findings listed below. Significant skin findings: - On the abdomen, back, buttocks and upper thighs there are serpiginous and erythematous plaques The following photos were obtained with patient consent: ASSESSMENT/PLAN Eczematous vs CTCL vs less likely psoriasis - Discussed potential etiologies and previous biopsy results/treatments. - Joint decision to proceed with another punch biopsy today. Punch biopsy: 4 mm Location: abdomen Suture: 4-0 The patient's consent was obtained. Risk of infection, scarring, nerve damage, pigment change, numbness, incomplete removal, recurrence, bleeding, pain and uncommonly so, allergic reaction to anesthesia were all reviewed. Sterile preparation was used. Anesthesia obtained with 1% lidocaine with epinephrine. A punch biopsy was obtained and closed with simple interrupted sutures (2). The specimen was sent to pathology for histologic evaluation. Vaseline and bandaid were applied. Wound care was reviewed and written instructions were given. S/R in 10-14 days. - given his level of discomfort, joint decision made to start a prednisone taper and continue topical steroids. My concern for CTCL remains, however, was not seen in last biopsy. Since stopping the cosentyx in September he has had no recurrence if psoriasis. May consider discussing this patient at the next grand rounds. - Start Rx: Prednisone taper 60mg x 7 days, 40mg x 7 days, 20mg x 7 days. - Continue Rx: Triamcinolone 0.1% cream, apply to rash on trunk 1-2 times daily as needed RTC - Pending pathology Note initiated and routed to physician for review and change by: Jay Talavera LPN I, Jay Talavera LPN, have performed the documentation for this encounter [...] documentation. Holli Berrios MD Section of Dermatology [facility] documented in this encounter Plan of Treatment Upcoming Encounters Date Type Department Care Team (Late st Contact Info) Description 12/18/2024 2:00 PM EDT Office Visit Dermatology at [facility] [address] [place] [address] Joyce Snyder MD [facility] [place] [address] documented as of this encounter Goals Goal Patient Goal Type Associated Problems Recent Progress Patient-Stated? Author DH Home Medication Compliance and Understanding Patient Facing Action Plan On track( 018 9:29 AM EST) Jono Madrid, [facility] Note: Patient's specific desired goal: Reduction in psoriasis patches and psoriatic arthritis pain / symptoms. Measured by: pain scale, joints affected, BSA affected by psoriasis Time-frame to meet goal: ongoing - mostly effective at this time documented as of this encounter Procedures Procedure Name Priority Date/Time Associated Diagnosis Comments SPECIMEN TO PATHOLOGY Routine 12/16/2020 2:49 PM EDT Neoplasm of uncertain behavior SURGICAL PATHOLOGY REPORT Routine 12/16/2020 2:02 PM EDT documented in this encounter Results * Specimen to Pathology (12/16/2020 2:49 PM EDT) AP Specimen 12/16/2020 2:49 PM EDT 12/16/2020 2:49 PM EDT Narrative [facility] - 12/16/2020 2:49 PM EDT Specimen requisition ordered. ??Separate Pathology report to follow Holli Berrios MD PATHOLOGY/CYTOLOG Y ORDERABLES Performing Organization Address City/State/[facility] Co de Phone Number [facility] [place] [address] * Surgical Pathology Report (12/16/2020 2:02 PM EDT) Final Diagnosis [id number] ? Location: [facility] The signing pathologist has (i) examined the relevant preparation(s) for the specimen(s) and (ii) rendered or confirmed the diagnosis(es). . ?Surgical Pathology DIAGNOSIS Abdomen, skin punch ??biopsy: - Acanthosis with superficial lymphocytic infiltrate and foci of lymphocyte exocytosis ??(see discussion) Electronically signed by: ??Lily Richter MD Verified: ??12/24/2020 ?Dermatopathologist Performed at: ??-[facility] Dept. of Pathology, [place], [place] DISCUSSION Sections show epidermal acanthosis with parakeratosis. Within the superficial dermis, there is a perivascular lymphocytic infiltrate with foci of lymphocyte exocytosis. There is mild spongiosis and few intraepidermal Langerhans cells. T cells are highlighted by CD3 with mixed expression of CD4 and CD8. CD2 and CD5 are retained. There is partial loss of CD7. PAS/F is negative for fungal organisms. Overall, ??the findings in this sample are insufficient to warrant a diagnosis of cutaneous T-cell lymphoma. While a chronic or subacute eczematous process could be ??considered, lymphoproliferative processes early in their evolution can sometimes mimic common inflammatory phenomena; therefore, repeat sampling and comparative clonality studies could be considered if the lesions appear heterogeneous or there is sustained clinical consideration for an evolving lymphoproliferative process. ADDITIONAL STUDIES Multiple step-leveled sections were reviewed. SPECIMEN(S) SUBMITTED A - abdomen, skin punch (1) CLINICAL INFORMATION On the abdomen, back, buttocks and upper thighs there are serpiginous and erythematous plaques; eczematous versus CTCL SPECIMEN PROCESSING A - Labeled/Fixative: Patient demographics, formalin. Quantity/Size: ??Single, 0.4 cm. Tissue Description: Harper brown scaly skin punch excised to a depth of 0.4 cm. Note during bisection specimen slid, specimen is actually 09/27 :3/4. Sections/Processing: Bisected and entirely submitted in 1 cassette labeled A1. ??MLL 12/24/2020 12:57 PM EDT [facility] SPECIMEN FROM SKIN / Unknown 12/16/2020 2:02 PM EDT 12/16/2020 2:02 PM EDT Holli Berrios MD PATHOLOGY/CYTOLOG Y ORDERABLES [facility] [place] [address] documented in this encounter Visit Diagnoses Diagnosis Neoplasm of uncertain behavior Neoplasm of uncertain behavior, site unspecified Dermatitis Contact dermatitis and other eczema, due to unspecified cause documented in this encounter Care Teams Hydraulic Press Tender Relationship Specialty Start Date End Date Carlos Hernandez DO [address] [place] [address] PCP - General 08/16/10 02/25/23 documented as of this encounter
--- OUTSIDE RECORDS SUMMARY | 2024-09-23 14:20 | XMS_ITS | Encounter Summary ---
Author Organization [facility] [place] [address] Care Team Providers Care Chief Minister Name Role Phone Carlos Hernandez DO Primary Care Provider Encounter Details Date Type Department Care Team (Late st Contact Info) Description 12/28/2020 Telephone Dermatology at [facility] [address] [place] [address] Holli Berrios MD Social History [...] encounter Miscellaneous Notes * Telephone Encounter - Atilio Ocampo LNA - 12/28/2020 2:19 PM EDT Returned call from regarding results on biopsy would like return call at [phone] documented in this encounter Plan of Treatment Upcoming Encounters Date Type Department Care Team (Late st Contact Info) Description 12/18/2024 2:00 PM EDT Office Visit Dermatology at [facility] [address] [place] [address] Joyce Snyder MD [facility] [address] documented as of this encounter Goals Goal Patient Goal Type Associated Problems Recent Progress Patient-Stated? Author DH Home Medication Compliance and Understanding Patient Facing Action Plan On track( 018 9:29 AM EST) Jono Madrid, [facility] Note: Patient's specific desired goal: Reduction in psoriasis patches and psoriatic arthritis pain / symptoms. Measured by: pain scale, joints affected, BSA affected by psoriasis Time-frame to meet goal: ongoing - mostly effective at this time documented as of this encounter Visit Diagnoses Not on filedocumented in this encounter Care Teams Chief Minister Relationship Specialty Start Date End Date Carlos Hernandez DO [address] [place] [address] [address] [place] [address] PCP - General 08/16/10 02/25/23 documented as of this encounter
--- OUTSIDE RECORDS SUMMARY | 2024-09-23 14:20 | XMS_ITS | Encounter Summary ---
Author Organization [facility] [place] [address] Care Team Providers Care Range Mounter Name Role Phone Carlos Hernandez DO Primary Care Provider Encounter Details Date Type Department Care Team (Latest Contact Info) Description 05/22/2019 10:00 AM EDT Office Visit Cardiology at [address] [phone] Irving Graham MD Essential hypertension; Coronary artery disease involving tolowa dee-ni' coronary artery of tolowa dee-ni' heart without angina pectoris; Bradycardia; Nonrheumatic aortic valve stenosis; Sleep apnea, unspecified type; Hyperlipidemia, unspecified hyperlipidemia type Social History Tobacco Use Types Packs/Day [...] Sign Reading Time Taken Comments Blood Pressure 124/54 05/22/2019 9:42 AM EDT Pulse 52 05/22/2019 9:42 AM EDT Temperature - - Respiratory Rate - - Oxygen Saturation 97% 05/22/2019 9:42 AM EDT Inhaled Oxygen Concentration - - Weight - - Height 177.8 cm (5' 10) 05/22/2019 9:42 AM EDT Body Mass Index - - documented in this encounter Progress Notes * Irving Graham MD - 05/22/2019 10:00 AM EDT Images from the original note were not included. [facility] [place] [address] [place] [address] CARDIOLOGY OUTPATIENT NOTE PRIMARY CARE PROVIDER: Carlos Hernandez, REFERRING PROVIDER: Carlos Hernandez PROBLEM LIST: Patient Active Problem List Diagnosis ??? Diabetes mellitus ??? Osteoarthritis of both knees ??? Bradycardia ??? Psoriatic arthritis ??? CAD (coronary artery disease) S/p CABG X 3 2012 ??? (aortic stenosis) Aortic valve area 1.1 cm??; s/p AVR in 2012 ??? Obesity ??? HTN (hypertension) ??? Hyperlipidemia ??? GERD (gastroesophageal reflux disease) ??? Sleep apnea ??? Former smoker ??? S/P prosthetic total arthroplasty of the hip ??? Subarachnoid hemorrhage 2006 ??? Fatty liver ??? Pancreatitis 11/05 Possible gallstone pancreatitis. ??? Cholelithiasis USG 11/05 ??? Diverticulitis 2004, 2006 S/p surgery ??? Abdominal panniculus S/p panniculectomy ??? Psoriasis ??? Depression MEDICATIONS: Current Outpatient Medications Medication Sig Dispense Refill ??? triamcinolone (KENALOG) 0.1 % Ointment Twice daily to psoriasis plaques on trunk/extremities for 1 week on, 1 week off as needed 454 g 0 ??? fluocinolone (DERMA-SMOOTHE) 0.01 % Oil Apply to scalp nightly for 1 week, then decrease to 2x weekly as needed. 120 mL 3 ??? amLODIPine (NORVASC) 5 mg Tablet Take 1 tablet by mouth daily. Take each evening in addition totaking the 10 mg each morning 90 tablet 0 ??? rosuvastatin (CRESTOR) 5 mg Tablet Take 1 tablet by mouth daily. 90 tablet 0 ??? metFORMIN (GLUCOPHAGE) 500 mg Tablet Take [...] mouth nightly. ??? mometasone (NASONEX) 50 mcg/actuation Downing, Non-Aerosol 1 spray by Each Nare route [...] No current facility-administered medications for this visit. Subjective: Patient ID: Irving Rosenthal is a 73 y.o. male. HPI Mr. Rosenthal is s/p CABGx3/tissue AVR/aortoplasty in 2012. 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 Recently diagnosed DM, now on metformin. ?? At this last visit in January 2018, the following issues were discussed: (aortic stenosis) S/p tissue AVR. Doing well. Continue with antibiotic prophylaxis prior to dental work. Will get repeat echocardiogram. ?? CAD (coronary artery disease) Secondary prevention with diet/exercise/weight control. He understands the importance of weight management. Continue with aspirin, BP control and statin therapy. He seems to be tolerating the low-dose statin. Reluctant to increase dosage given prior issues with statins. ?? HTN (hypertension) Mr. Rosenthal is on numerous BP medications; BP seems to be well-controlled in the office today and at home. He remains bradycardic at rest (not on bblocker). ?? Hyperlipidemia He has had some intolerance to statin (Lipitor), but seems to be tolerating Crestor. ?? Obesity Obesity remains a central issue. I reinforced the need for a heart healthy diet and a focus on weight reduction. ?? Bradycardia Asymptomatic. Not on bblocker. Continue to monitor. Since his last visit, Mr. Rosenthal reports that he is feeling well from a CV standpoint. Mild JORDAN, stairs. No chest pains. No lightheadedness or syncope. Sees the dentist 2x/year, with abx prophylaxis. He has been trying to exercise in the pool. Weight is stable; trying to lose little by little. No fevers/chills. No bleeding. Some generalized fatigue. CardioVascular Pre Appointment Symptom Review 05/22/2019 Angina (chest discomfort) Frequency: Rare Shortness of breath: Only with moderate or strenous activity Palpitations (skipped beats): No Leg swelling: No Family history: no known valve disease in the family ?? Social history: retired from [employer]; lives in [place], [place]; former smoker, stopped 1998; occasional alcohol; Objective: Physical Exam Constitutional: Overweight gentleman; no distress. Head: Normocephalic. Neck: Neck supple. No JVD present. Cardiovascular: Normal rate, regular rhythm and intact distal pulses. Exam reveals no friction rub. Mid-sternal scar, well-healed; KANIKA at base. Pulmonary/Chest: Effort normal. Abdominal: Soft. Musculoskeletal: Normal range of motion. Neurological: He is alert. Skin: Skin is warm. Most Recent Vitals: 05/22/19 0942 BP: 124/54 Pulse: 52 SpO2: 97% Recent Results (from the past 72 hour(s)) EKG 12 Lead Result Value Ventricular rate 60 Atrial Rate 60 P-R Interval 198 QRS Duration 96 Q-T Interval 438 QTC Calculated (Bezet) 438 Calculated P Linville 69 Calculated R Linville 53 Calculated T Linville -3 INTERPRETATION Normal sinus rhythm Nonspecific ST and T wave abnormality Abnormal ECG When compared with ECG of 21-FEB-2018 10:13, Premature ventricular complexes are no longer Present Nonspecific T wave abnormality has replaced inverted T waves in Lateral leads Echo 02/2018: SUMMARY: 1. Normal biventricular size and systolic function, [id number]%. No wall motion abnormalities. Normal LV wall thickness. Doppler interrogation is consistent with normal LV filling pressure. 2. Normal atrial size. 3. There is a bioprosthetic AVR present - mean [id number] mmHg. No AR. 4. Other findings as noted below. 5. Compared to prior echo performed Jun 2016, there is no significant change. ?? Findings : ?? Left Ventricle: The left ventricular chamber size is normal. Mild concentric left ventricular hypertrophy is observed. There is normal global left ventricular systolic function. Ejection fraction is estimated to be 65%. There are no left ventricular segmental wall motion abnormalities. Doppler assessment is consistent with normal left sided filling pressure. ?? Left Atrium: The left atrium is normal in size.(33 ml/m2) ?? Right Ventricle: The right ventricle is probably normal in size. Right ventricular global systolic function is normal. The estimated pulmonary artery systolic pressure is 35 mmHg. The estimated right atrial pressure is 3 mmHg. ?? Right Atrium: The right atrium appears normal. ?? Aortic Valve: The peak instantaneous trans-valvular gradient across the aortic valve is 31 mmHg. The mean trans-valvular gradient across the aortic valve is 17 mmHg. The size of the prosthetic aortic valve is 25mm. The prosthetic aortic valve was implanted on 09/02/2013. A bovine bio-prosthetic aortic valve is present. The bio-prosthetic aortic valve appears well seated with normal function. There is no prosthetic aortic valve regurgitation present. ?? Mitral Valve: The mitral valve appears normal in structure and function. There is trace mitral regurgitation present. ?? Tricuspid Valve: The tricuspid valve appears normal in structure and function. There is trace tricuspid regurgitation present. ?? Pulmonic Valve: The pulmonic valve appears normal in structure and function. There is trace pulmonic regurgitation present. ?? Pericardium: The pericardium appears normal and there is no evidence of a pericardial effusion. ?? Aorta: There is mild dilatation of the aortic root. The ascending aorta was not well visualized. ?? Pulmonary Artery: The main pulmonary artery appears normal. ?? Venous: The inferior vena cava appears normal in size. There is a greater than 50% respiratory change in the inferior vena cava dimension. ?? Misc: See remainder of report for additional findings. Two-dimensional echo, spectral Doppler and color Doppler performed. ? Chambers 2D Value Units (Range) IVSd (2D) 1.5 cm LVPWd (2D) 1.4 cm IVS:LVPW ratio (2D) 1.1 ratio RWT (2D) 0.6 ratio RWT PW (2D) 0.6 ratio LVIDd (2D) 5 cm LVIDs (2D) 3 cm LVIDd (2D) index 1.9 cm/m2 LVIDs (2D) index 1.2 cm/m2 LV FS (2D) 39 % EF Teichholz (2D) 69 % Ao root diameter (2D3.6 cm (2.1 - 3.6) ?? Volumes/Mass Value Units (Range) LA Area 4 CH 22.9 cm2 (<21) LA ESV BP (A/L) inde36.2 ml/m2 RA AREA 4CH 18.4 cm2 LV mass (2D) 311.5 g LV mass (2D) index 121.7 g/m2 ?? Diastolic/Systolic Function Value Units (Range) MV E-wave Vmax 1.1 m/sec MV deceleration [id number] msec MV A-wave Vmax 0.3 m/sec MV E:A ratio 3.6 ratio LV septal e' Vmax 0.1 m/sec LV lateral e' Vmax 0.1 m/sec LV average e' Vmax 0.1 m/sec LV E:e' septal ratio13.9 ratio LV E:e' lateral rati10.1 ratio LV average E:e' rati11.1 ratio ?? Aortic Valve Value Units (Range) AV Vmax 2.8 m/sec AV VTI 68.6 cm AV peak gradient 31 mmHg AV mean gradient 17 mmHg LVOT Vmax 1.1 m/sec LVOT VTI 26.6 cm LVOT peak gradient 5.2 mmHg LVOT mean gradient 2.8 mmHg DOI (VTI) 0.4 ratio DOI (Vmax) 0.4 ratio ?? Tricuspid Valve Value Units (Range) TR Vmax 2.8 m/sec TR peak gradient 32.1 mmHg RAP 3 mmHg RVSP 35 mmHg ?? Wall Motion: ?? Segment Name Rest ?? Base-Anteroseptal Normal Base-Anterior Normal Base-Anterolateral Normal Base-Posterolateral Normal Base-Inferior Normal Base-Inferoseptal Normal Mid-Anteroseptal Normal Mid-Anterior Normal Mid-Anterolateral Normal Mid-Posterolateral Normal Mid-Inferior Normal Mid-Inferoseptal Normal Mcallen-Septal Normal Mcallen-Anterior Normal Mcallen-Lateral Normal Mcallen-Inferior Normal Mcallen-Tip Normal EKG: Sinus bradycardia Occasional Premature ventricular complexes ST & T wave abnormality, consider lateral ischemia Abnormal ECG When compared with ECG of 06-JUL-2016 10:12, Premature ventricular complexes are now Present Confirmed by fellow MD Roslyn, Willa Baker ([id number]) on 02/21/2018 1:04:54 PM Confirmed by MD Danielle, Ezekiel ([id number]) on 02/21/2018 3:07:42 PM ?? Results for IRVING ROSENTHAL ( ) Ref. Range 03/06/2019 11:48 WBC Latest Ref Range: 4.0 - 9.5 x10(3)/mcL 5.0 RBC Latest Ref Range: 4.58 - 5.54 x10(6)/mcL 4.49 (L) Hemoglobin Latest Ref Range: 13.7 - 16.5 gm/dL 13.1 (L) Hematocrit Latest Ref Range: 40.5 - 48.5 % 40.9 MCV Latest Ref Range: 82.9 - 93.1 fL 91.1 MCH Latest Ref Range: 27.5 - 32.1 pg 29.2 MCHC Latest Ref Range: 32.0 - 35.7 gm/dL 32.0 RDWSD Latest Ref Range: 36.0 - 45.0 fL 43.1 RDWCV Latest Ref Range: 11.4 - 13.8 % 13.0 Platelets Latest Ref Range: 145 - 357 x10(3)/mcL 169 MPV Latest Ref Range: 7.6 - 12.9 fL 9.9 nRBC % Auto Latest Units: % 0.0 nRBC Abs Auto Latest Ref Range: 0.000 - 0.000 x10(3)/mcL 0.000 Neutr Abs (ANC) Latest Ref Range: 1.70 - 6.10 x10(3)/mcL 2.98 Neutrophils % Latest Units: % 60.0 Immature Gran % Latest Units: % 0.40 Lymphocytes % Latest Units: % 23.2 Monocytes % Latest Units: % 9.1 Eosinophils % Latest Units: % 6.3 Basophils % Latest Units: % 1.0 Alize Gran Abs Latest Ref Range: 0.00 - 0.04 x10(3)/mcL 0.02 Lymphocytes Abs Latest Ref Range: 0.9 - 3.2 x10(3)/mcL 1.2 Monocyte Abs Latest Ref Range: 0.3 - 0.9 x10(3)/mcL 0.4 Eosinophils Abs Latest Ref Range: 0.0 - 0.4 x10(3)/mcL 0.3 Basophils Abs Latest Ref Range: 0.0 - 0.1 x10(3)/mcL 0.0 Sodium Latest Ref Range: 135 - 145 mmol/L 142 Potassium Latest Ref Range: 3.5 - 5.0 mmol/L 4.4 Chloride Latest Ref Range: 98 - 107 mmol/L 104 CO2 Latest Ref Range: 22 - 31 mmol/L 24 Anion Gap Latest Ref Range: 5 - 15 mmol/L 14 BUN Latest Ref Range: 10 - 20 mg/dL 32 (H) Creatinine Latest Ref Range: 0.80 - 1.50 mg/dL 1.39 eGFR Latest Ref Range: >=60 mL/min/1.73 m?? 50 (L) eGFR Latest Ref Range: >=60 mL/min/1.73 m?? 58 (L) Glucose Lvl Latest Ref Range: 65 - 199 mg/dL 92 Calcium Latest Ref Range: 8.5 - 10.5 mg/dL 10.6 (H) Total Protein Latest Ref Range: 6.1 - 8.0 gm/dL 7.4 Albumin Latest Ref Range: 3.2 - 5.2 gm/dL 4.5 Total Bilirubin Latest Ref Range: 0.2 - 1.3 mg/dL 0.2 Alk Phos Latest Ref Range: 40 - 120 unit/L 43 AST Latest Ref Range: 0 - 39 unit/L 40 (H) ALT Latest Ref Range: 0 - 55 unit/L 33 Assessment and Plan: Diabetes mellitus A relatively new diagnosis for him. On metformin. A1c's reportedly <7%. (aortic stenosis) S/p tissue AVR. Doing well. Continue with antibiotic prophylaxis prior to dental work. Will get repeat echocardiogram at next visit. CAD (coronary artery disease) Secondary prevention with diet/exercise/weight control. He understands the importance of weight management. Continue with aspirin, BP control and statin therapy. He seems to be tolerating the low-dose statin. He has issues in the past with increased statin doses. It would be reasonable to try to increase his Crestor to 10 md / day at this point. HTN (hypertension) Mr. Rosenthal is on numerous BP medications; BP seems to be well-controlled in the office today and at home. He remains bradycardic at rest (not on bblocker). BP stable at home. Hyperlipidemia Continues with Crestor, with an increase to 10 mg daily. Sleep apnea Continues with the OLIVIER mask. Obesity Obesity remains a central issue. I reinforced the need for a heart healthy diet and a focus on weight reduction. He is not interested in a formal weight loss program; rather, will continue to work onthis by himself. Thank you for the opportunity to participate in this patient's cardiovascular care. All questions were answered and I look forward to the next visit in one year, with an echo at that time. Irving Graham MD documented in this encounter Miscellaneous Notes * Assessment & Plan Note - Irving Graham MD - 05/22/2019 10:00 AM EDT Associated Problem(s): Obesity Obesity remains a central issue. I reinforced the need for a heart healthy diet and a focus on weight reduction. He is not interested in a formal weight loss program; rather, will continue to work onthis by himself. * Assessment & Plan Note - Irving Graham MD - 05/22/2019 10:00 AM EDT Associated Problem(s): Sleep apnea Continues with the OLIVIER mask. * Addendum Note - Irving Graham MD - 05/22/2019 10:00 AM EDTAddended by: IRVING GRAHAM on: 05/22/2019 10:07 AM Modules accepted: Orders * Assessment & Plan Note - Irving Graham MD - 05/22/2019 9:59 AM EDT Associated Problem(s): Hyperlipidemia Continues with Crestor, with an increase to 10 mg daily. * Assessment & Plan Note - Irving Graham MD - 05/22/2019 9:59 AM EDT Associated Problem(s): HTN (hypertension) Mr. Rosenthal is on numerous BP medications; BP seems to be well-controlled in the office today and at home. He remains bradycardic at rest (not on bblocker). BP stable at home. * Assessment & Plan Note - Irving Graham MD - 05/22/2019 9:57 AM EDT Associated Problem(s): CAD (coronary artery disease) Secondary prevention with diet/exercise/weight control. He understands the importance of weight management. Continue with aspirin, BP control and statin therapy. He seems to be tolerating the low-dose statin. He has issues in the past with increased statin doses. It would be reasonable to try to increase his Crestor to 10 md / day at this point. * Assessment & Plan Note - Irving Graham MD - 05/22/2019 9:56 AM EDT Associated Problem(s): Nonrheumatic aortic (valve) stenosis S/p tissue AVR. Doing well. Continue with antibiotic prophylaxis prior to dental work. Will get repeat echocardiogram at next visit. * Assessment & Plan Note - Irving Graham MD - 05/22/2019 9:50 AM EDT Associated Problem(s): Diabetes mellitus A relatively new diagnosis for him. On metformin. A1c's reportedly <7%. documented in this encounter Plan of Treatment Upcoming Encounters Date Type Department Care Team (Late st Contact Info) Description 12/18/2024 2:00 PM EDT Office Visit [facility] at [facility] [address] [facility] [place] [address] Joyce Sndyer MD [facility] [place] [address] documented as of this encounter Goals Goal Patient Goal Type Associated Problems Recent Progress Patient-Stated? Author DH Home Medication Compliance and Understanding Patient Facing Action Plan On track( 018 9:29 AM EST) No Jono Reed, [facility] Note: Patient's specific desired goal: Reduction in psoriasis patches and psoriatic arthritis pain / symptoms. Measured by: pain scale, joints affected, BSA affected by psoriasis Time-frame to meet goal: ongoing - mostly effective at this time documented as of this encounter Procedures Procedure Name Priority Date/Time Associated Diagnosis Comments EKG 12-LEAD Routine 05/22/2019 9:51 AM EDT Essential hypertension Coronary artery disease involving tolowa dee-ni' coronary artery of tolowa dee-ni' heart without angina pectoris Bradycardia documented in this encounter Results * EKG 12 Lead (05/22/2019 9:51 AM EDT) Ventricular rate 60 BPM MUSE SYSTEM Atrial Rate 60 BPM MUSE SYSTEM P-R Interval 198 ms MUSE SYSTEM QRS Duration 96 ms MUSE SYSTEM Q-T Interval 438 ms MUSE SYSTEM QTC Calculated (Bezet) 438 ms MUSE SYSTEM Calculated P Linville 69 degrees MUSE SYSTEM Calculated R [place] 53 degrees MUSE SYSTEM Calculated T Lin[place] -3 degrees MUSE SYSTEM INTERPRETATION Normal sinus rhythm Nonspecific ST and T wave abnormality Abnormal ECG When compared with ECG of 21-FEB-2018 10:13, Premature ventricular complexes are no longer Present Nonspecific T wave abnormality has replaced inverted T waves in Lateral leads Confirmed by MD Scotty, Julián Painter ([id number]) on 05/26/2019 3:13:05 PM MUSE SYSTEM 05/22/2019 9:51 AM EDT 05/26/2019 3:13 PM EDT Irving Graham MD ECG ORDERABLES MUSE SYSTEM documented in this encounter Visit Diagnoses Diagnosis Essential hypertension Unspecified essential hypertension Coronary artery disease involving tolowa dee-ni' coronary artery of tolowa dee-ni' heart without angina pectoris Bradycardia Other specified cardiac dysrhythmias Nonrheumatic aortic valve stenosis Aortic valve disorders Sleep apnea, unspecified type Hyperlipidemia, unspecified hyperlipidemia type documented in this encounter Care Teams Range Mounter Relationship Specialty Start Date End Date Carlos Hernandez DO [address] [place] [address] PCP - General 08/16/10 02/25/23 documented as of this encounter
--- OUTSIDE RECORDS SUMMARY | 2024-09-23 14:20 | XMS_ITS | Encounter Summary ---
Author Organization [facility] [place] [address] Care Team Providers Care Or Director Name Role Phone Carlos Hernandez DO Primary Care Provider Encounter Details Date Type Department Care Team (Late st Contact Info) Description 09/11/2019 Specialty [place] [id number] Nataly Spann RPH Social History Tobacco Use Types Packs/Day [...] as of this encounter Progress Notes * Nataly Spann RPH - 09/11/2019 1:56 PM EST Specialty Pharmacy Consultation; Nataly Spann RPH Comprehensive Medication Management (CMM) Raghu Welch Diagnosis: Psoriatic Arthritis Therapy Start Date: New Start Contact in person or via telephone: In clinic Mr. Raghu Rosenthal is a 74 y.o. (1945) male who was contacted in regard to specialty medication. Spoke with patient regarding Skyrizi . A review of the medication therapy was performed. The medication was discussed as scheduled, and all medication related questions and concerns were addressed. The specialty pharmacy staff will follow up with the patient 5-7 days prior to next refill. Is the patient willing to proceed with the Clinical Assessment? Yes Summary and Recommendations: Raghu Rosenthal was seen in clinic for a review of Skyrizi for the treatment of rheumatoid arthritis. Patient is aware of the prior authorization process and timeline and was given [facility] contact information for any questions. Patient was educated on the Skyrizi warnings and precautions regarding the risk of serious infections, and hypersensitivity. Patient was educated on the importance of infection prevention including best practices for hand hygiene and the annual flu vaccine. Dose hold parameters were reviewed including suspected/known infection, prescribed antibiotic therapy, or scheduled surgery. Patient agrees to contact the clinic to review dose hold in these settings. Educated patient on the potential side effects of Skyrizi including injection site reaction and infections such as URTI/nasopharyngitis. Discussed with patient that it may take 3-4 months to experience the full benefit of Skyrizi. A review of dosing, storage, and administration was completed. Patient was educated on the dosing schedule, 150mg (2 syringes) at weeks 0 and 4 and every 12 weeks thereafter. Patient was made aware that Skyrizi must be stored in the refrigerator protected from light and remains stable at room temperature for 4 hours. Patient is familiar with the injection process and device as it is similar to the Stelara he has used in the past. Patient was advised on proper site rotation, site sterilization, and allowing the medication to reach room temperature prior to injection. Patient will be provided with a sharps container and disposal of prefilled syringes was discussed. Clinic follow-up needed: no Allergies and Drug intolerance: Allergies Allergen [...] extremtites cold ??? Pravastatin Sodium ??? Tetracyclines Special Dietary or Hydration Requirements: no There is no height or weight on file to calculate BMI. Medication Reconciliation Discrepancies (compared to [facility] med list) -None Medication Adherence Adherence tools used: calendar, directed education Support network for adherence: family member Medication List: Current Outpatient Medications Medication Sig Dispense Refill ??? betamethasone dipropionate (DIPROLENE) 0.05 % Cream Apply to the affected areas on the back andflanks twice daily, as needed. 45 g 1 ??? betamethasone dipropionate (DIPROLENE) 0.05 % Lotion Apply to the affected areas on the scalp every other day. [place] [employer]-smoothe oil for more severe flares on the [...] mouth nightly. ??? mometasone (NASONEX) 50 mcg/actuation [place], Non-Aerosol 1 spray by Each Nare route [...] Vitals: Ht Readings from Last 1 Encounters: 09/11/19 177.8 cm (5' 10) Wt Readings from Last 3 Encounters: 09/11/19 133.4 kg (294 lb) 03/06/19 (!) 144.7 kg (319 lb) 10/08/18 (!) 145.6 kg (321 lb) Temp Readings from Last 3 Encounters: 09/11/19 36.4 ??C (97.6 ??F) (Oral) 03/06/19 36.4 ??C (97.6 ??F) 10/08/18 36.7 ??C (98.1 ??F) (Oral) BP Readings from Last 3 Encounters: 09/11/19 132/65 05/22/19 124/54 03/06/19 145/56 Pulse Readings from Last 3 Encounters: 09/11/19 (!) 46 05/22/19 52 03/06/19 54 Pertinent Lab values: Lab Results Component Value Date NA 142 03/06/2019 K 4.4 03/06/2019 CL 104 03/06/2019 CO2 24 03/06/2019 BUN 32 (H) 03/06/2019 CREATININE 1.39 03/06/2019 GLUCOSE 92 03/06/2019 GLUCFASTING 153 (H) 09/03/2013 CALCIUM 10.6 (H) 03/06/2019 Lab Results Component Value Date ALT 33 03/06/2019 AST 40 (H) 03/06/2019 ALKPHOS 43 03/06/2019 BILITOT 0.2 03/06/2019 BILIDIR 0.1 02/10/2016 ALBUMIN 4.5 03/06/2019 PROT 7.4 03/06/2019 Lab Results Component Value Date WBC 5.0 03/06/2019 HGB 13.1 (L) 03/06/2019 HCT 40.9 03/06/2019 MCV 91.1 03/06/2019 PLATELET 169 03/06/2019 No results found for: HA1C Immunization History Administered Date(s) Administered ??? Diphtheria,pertussis,tetanus 10/03/2011 ??? Influenza Vaccine w/Preservative, Split 07/17/2012, 06/30/2014, 07/13/2015 ??? Influenza Vaccine, Whole 07/14/2005, 08/10/2006, 07/16/2008 ??? Pneumococcal Polyvalent 23 09/19/2006, 10/03/2011 ??? Td, adult 09/24/1994, 05/01/2006 ??? Zoster Vaccine, Live 11/10/2012 Assessment and Recommendations: Title Cognitive Ability: good Cognitive Impairment Status Verified this Year: no Drug Treatment Outcomes 06/18/2019 1524 Disease progression: Stable Patient Overall Status: Stable [...] use oldest product first Relevant lab data Patient verbalizes understanding and is able to read-back instructions on self-administration/injection, proper storage, drug stability, importance of adherence and management strategies, side effectavoidance and mitigation strategies, and interruptions in therapy: Yes Physical Assessment: Functional limitations identified: no Cognitive limitations identified: no Concern regarding orientation/memory: no Concern with reasoning/judgement: no Is patient a fall risk: no Other needed information: no Social Assessment: Does the patient have a primary rn home care? no Patient has emergency contact on file: Yes Does patient need referral to social group worker: No Does patient need referral to advocacy group: No Physical and Home Health Assessment: Is the patient able to store their medication as directed? Yes Is the patient in a safe home environment? Yes Do you have a support network? Yes Reviewed potential home safety hazards: Yes Economic Assessment: Patient is agreeable to medication copay: Yes Copay Amount: $0.00 Day Supply: 28 Date Needed: New start- will ship once rx is sent Copay assistance required: no Therapy Assessment: Current Medication Dosing/Route/Frequency: Skyrizi 150mg. Inject 150mg at weeks 0, 4 and every 12 weeks thereafter Appropriate Therapy: Yes Expected Outcome: Maintained joint improvement with additional clearance of persistent plaques Patient's goals: Patient's specific desired goal: 50% skin clearance in first 3-6 months Measured by: Clinical follow up Time-frame to meet goal: 3-6 months Care Plan Reviewed and Approved by both Pharmacist and Patient: Yes Patient's Problems/Needs: N/A Monitoring requirements for prescribed medication: Signs/symptoms of infection, injection site reaction Interventions (if applicable): No Educational information or adherence tools provided: Yes Additional equipment/supplies required: no Pharmacist follow-up needed: No Informed patient of specialty pharmacy services: Yes -Patient will be provided with welcome packet: Yes Date to be provided: 08/08/18 Delivery Method: Mail -Patient will be provided with Rights & Responsibilities: Yes Date to be provided: 08/08/18 Delivery Method: Mail -Patient is aware a [...] at the appointment and that [facility] isproviding recommendations (summary located at top of note) for provider review and follow up. Nataly Spann RPH 09/11/19 2:19 PM documented in this encounter Plan of Treatment Upcoming Encounters Date Type Department Care Team (Late st Contact Info) Description 12/18/2024 2:00 PM EDT Office Visit Dermatology at [facility] [address] [place] [address] Joyce Snyder MD [facility] [place] [address] documented as of this encounter Goals Goal Patient Goal Type Associated Problems Recent Progress Patient-Stated? Author DH Home Medication Compliance and Understanding Patient Facing Action Plan On track( 018 9:29 AM EST) No Jono Reed Chanell Note: Patient's specific desired goal: Reduction in psoriasis patches and psoriatic arthritis pain / symptoms. Measured by: pain scale, joints affected, BSA affected by psoriasis Time-frame to meet goal: ongoing - mostly effective at this time documented as of this encounter Visit Diagnoses Not on filedocumented in this encounter Care Teams Or Director Relationship Specialty Start Date End Date Carlos Hernandez DO [address] [place] [address] [address] [place] [address] PCP - General 08/16/10 02/25/23 documented as of this encounter
--- OUTSIDE RECORDS SUMMARY | 2024-09-23 14:20 | XMS_ITS | Encounter Summary ---
Author Organization [facility] [place] [address] Care Team Providers Care Cnc Machine Setter Name Role Phone Carlos Hernandez DO Primary Care Provider [phone] Reason for Visit * Reason Comments Medication Management Encounter Details Date Type Department Care Team (Late st Contact Info) Description 09/27/2020 Specialty [place] [address] Mary Ann Daniel RPH Social [...] Notes * Mary Ann Daniel RPH - 09/27/2020 2:02 PM EST Specialty Pharmacy Consultation; Mary Ann Daniel RPH Comprehensive Medication Management (CMM) Raghu Welch Diagnosis: Psoriasis Therapy Start Date: ~01/29/2020 Contact in person or via telephone:telephone Mr. Raghu Rosenthal is a 75 y.o. (1945) male who was contacted in regard to specialty medication. Spoke with patient regarding Cosentyx. A review of the medication therapy was performed. The medication was Refilled as scheduled, and all medication related questions and concerns were addressed. The specialty pharmacy staff will follow up with the patient 5-7 days prior to next refill. Is the patient willing to proceed with the Clinical Assessment? Yes Summary and Recommendations: Spoke to patient in regards to Cosentyx. Medication history, allergies, and medical conditions wereconfirmed; all are consistent with [facility]. Patient confirms proper injection storage, administration, and disposal. He does not have any difficulties administering the injection. Patient denies any recent infections and confirms understanding of when to contact clinic when a hold in dose is needed. Patient has already received the influenza vaccine this year. Currently, patient is doing fine on therapy. He denies experiencing any adverse effects. He says heis stable but is still very itchy. His current affected areas are his sides, back, buttocks, abdomen, scalp, heels of feet, and fingers. He says the areas are dry with some cracking at this fingertips. He still applies his topicals regularly. He says his joint pain is better, but still existing. He notes pain in his joints at night and some stiffness depending on the day. He would rate the pain as an 8. The stiffness comes and goes and is relieved by either rest or movement. He takes acetaminophen as needed. He does not use any other pain relieving methods (heating pads, creams, etc). Overall, he would like to see more improvements then he has seen so far. He will continue therapy for now until he is seen by the provider. At this time, patient does not have any additional questions or concerns. He has our contact numbershould questions or concerns arise. We will continue to follow up with patient accordingly. Clinic follow-up needed: no Allergies and Drug [...] extremtites cold ??? Pravastatin Sodium ??? Tetracyclines Problem List: Patient Active Problem List Diagnosis Code ??? 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 Diabetes mellitus E11.9 Special Dietary or Hydration Requirements: no There is no height or weight on file to calculate BMI. Medication Reconciliation Discrepancies (compared to [facility] med list) no Medication Adherence Patient reported X missed doses in the last month: 0 Any gaps in refill history greater than 2 weeks in the last 3 months: no Demonstrates understanding of importance of adherence: yes Informant: patient Reliability of informant: reliable Provider-estimated medication adherence level: 90-100% Reasons for non-adherence: no problems identified Adherence tools used: calendar, directed education, cell phone Support network for adherence: family member Confirmed plan for next specialty medication refill: delivery by pharmacy Refills needed for supportive medications: not needed Medication List: Current Outpatient Medications Medication Sig Dispense Refill ??? omeprazole (PriLOSEC) 20 mg Capsule, Delayed [...] daily, as needed. 45 g 1 ??? triamcinolone (KENALOG) 0.1 % Ointment Twice daily to psoriasis plaques on trunk/extremities for 1 week on, 1 week off as needed 454 g 0 ??? betamethasone dipropionate (DIPROLENE) 0.05 % Lotion Apply to the affected areas on the scalp every other day. [place] [employer]-smoothe oil for more severe flares on the [...] Vaccine, Live 11/10/2012 Assessment and Recommendations: Title Type of Medication Management: chronic disease management, targeted medication review Referred By: pharmacist Recipient: beneficiary Provider: plan sponsor pharmacist Visit Type: [facility] Follow-up Method of Contact: by telephone Cognitive Ability: good Cognitive Impairment Status Verified this Year: no Patient Counseling Counseled the patient on the following: medication safety precautions education provided, doses and administration discussed, safe handling, storage, and disposal discussed, possible adverse effects and management discussed, possible drug and prescription drug interactions discussed, lab monitoring and follow-up discussed, therapeutic rationale discussed, cost of medications and cost implications discussed, adherence and missed doses discussed, pharmacy contact information discussed, health goals discussed, monitoring medication discussed, preventative care discussed, recommendations to doctor discussed, reminder to refill or machine pecan picker medication discussed, self-monitoring discussed, timing of medications discussed, vaccination discussed, referral needs discussed Drug Medication Management Summary Topics discussed: medication safety precautions education provided, doses and administration discussed, safe handling, storage, and disposal discussed, possible adverse effects and management discussed, possible drug and prescription drug interactions discussed, lab monitoring and follow-up discussed, therapeutic rationale discussed, cost of medications and cost implications discussed, adherence and missed doses discussed, pharmacy contact information discussed, health goals discussed, monitoring medication discussed, preventative care discussed, recommendations to doctor discussed, reminder to refill or machine pecan picker medication discussed, self-monitoring discussed, timing of medications discussed, vaccination discussed, referral needs discussed Time spent: 16-30 min Treatment Outcomes No data found in the last 10 encounters. Reviewed in detail with patient: Dose appropriateness [...] strategies, and interruptions in therapy: Yes Physical and Cognitive Assessment: Functional limitations identified: no Cognitive limitations identified: no Concern regarding orientation/memory: no Concern with reasoning/judgement: no Is patient a fall risk: no Other needed information: no Social Assessment: Does the patient have a primary director long term care? no Does the patient have an emergency contact on file: Yes Does patient need referral to licensed clinical social worker: No Does patient need referral to advocacy group: No Home Health Assessment: Is the patient in a safe home environment? Yes Is the patient able to store their medication as directed? Yes Does the patient have a support network at home? Yes Reviewed potential home safety hazards with patient: Yes Economic Assessment: Patient is agreeable to medication copay: yes Copay Amount: $780.76 Day Supply: 28 Date Needed: 10/10/20 Copay assistance required: no Therapy Assessment: Appropriate Therapy: Yes Current Medication Dosing/Route/Frequency: Cosentyx 150mg/mL Inject 300mg under the skin every 28 days Effective: no Current Affected Areas: sides, back, butt, legs, stomach, scalp, heals of feet, fingers Improving Affected Areas: none Worsening Affected Areas: none Total BSA involved: unknown Recent Skin Exacerbations/Flaring: yes - patient still has effected area Recent Topical Corticosteroid Use: yes - betamethasone an triamcinolone Relapsing/Remitting Factors: no Patient-Reported Side Effects: no Recent Infections: no Patient Goals: Patient's specific desired goal: Patient would like to see skin and joint improvements while on Cosentyx Measured by: current skin and joint involvement Time-frame to meet goal: 6 months Is the patient on track to achieve goals of therapy? yes If no, what are the barriers and action plan to reach the goal: N/A Care Plan and Interventions: Care Plan Reviewed and Approved by both Pharmacist and Patient: Yes Did Care Plan Change? No If yes: Change to plans of care based on: Patient's request: no Condition: no Response to therapy: no Provider request: no Follow-up needed: No Interventions (if applicable): No Patient experienced change in condition that affects treatment: no Additional care/services needed: no Educational information or adherence tools provided: No Additional equipment/supplies required: no Counseling: Utilizing appropriate injection technique: yes - patient confirms proper injection technique Rotation of Injection Sites: Yes Room Temperature Medication at Time of Injection: Yes Pharmacist follow-up needed: Yes Patient Satisfaction with Care/Services Provided: Yes Informed patient of specialty pharmacy services: Yes -Patient received welcome packet: Yes Date Received: 11/01/17 Delivery Method: mail -Patient returned signed Rights & Responsibilities: Yes Date Received: 08/14/18 Delivery Method: mail -Patient is aware a licensed pharmacist is available 24 hours a day, 7 days a week to discuss medication-related questions or concerns: Yes -Patient verbalizes understanding of education on the common side effect profile of the medication:Yes -The patient is able to call 911 or seek urgent care if signs/symptoms of allergy or harmful adverse reactions occur: Yes Patient Satisfaction with Therapy: patient says he is stable, but has not experienced clearing Patient understands no changes to current drug regimen were made at the appointment and that [facility] isproviding recommendations (summary located at top of note) for provider review and follow up. Mary Ann Daniel RPH 09/27/20 2:23 PM documented in this encounter Plan of Treatment Upcoming Encounters Date Type Department Care Team (Late st Contact Info) Description 12/18/2024 2:00 PM EDT Office Visit Dermatology at [facility] [address] [place] [address] Joyce Snyder MD [facility] [place] [address] documented as of this encounter Goals Goal Patient Goal Type Associated Problems Recent Progress Patient-Stated? Author DH Home Medication Compliance and Understanding Patient Facing Action Plan On track( 018 9:29 AM EST) Jono Madrid, [facility] Note: Patient's specific desired goal: Reduction in psoriasis patches and psoriatic arthritis pain / symptoms. Measured by: pain scale, joints affected, BSA affected by psoriasis Time-frame to meet goal: ongoing - mostly effective at this time documented as of this encounter Visit Diagnoses Not on filedocumented in this encounter Care Teams Cnc Machine Setter Relationship Specialty Start Date End Date Carlos Hernandez DO [address] [place] [address] PCP - General 08/16/10 02/25/23 documented as of this encounter
--- OUTSIDE RECORDS SUMMARY | 2024-09-23 14:20 | XMS_ITS | Encounter Summary ---
Author Organization [facility] Address [facility] [facility] [place] [address] Care Team Providers Care Human Resources Consultant Name Role Phone Carlos Hernandez DO Primary Care Provider Reason for Visit * Reason Onset Date Comments Medication Refill 09/12/2019 Encounter Details Date Type Department Care Team (Late st Contact Info) Description 09/12/[address] [facility] [address] [place] [id number] Holli Berrios MD Social History Tobacco Use [...] PM EDT Office Visit Dermatology at [facility] [address] [place] [phone] Joyce Snyder MD [facility] [address] documented as of this encounter Goals Goal [...] on filedocumented in this encounter Care Teams Human Resources Consultant Relationship Specialty Start Date End Date Carlos Hernandez DO [address] [place] [address] PCP - General 08/16/10 02/25/23 documented as of this encounter
--- OUTSIDE RECORDS SUMMARY | 2024-09-23 14:20 | XMS_ITS | Encounter Summary ---
Author Organization [facility] Address [facility] [place] [address] Care Team Providers Care Oil Spraying Machine Operator Name Role Phone Doug Valderrama MD Primary Care Provider [phone] Encounter Details Date Type Department Care Team (Latest Contact Info) Description 05/24/2023 Travel Social History Tobacco Use Types Packs/Day [...] 2:00 PM EDT Office Visit Dermatology at [facility] [address] [place] [address] Joyce Snyder MD [facility] [place] [address] documented as of this encounter Goals Goal [...] on filedocumented in this encounter Care Teams Oil Spraying Machine Operator Relationship Specialty Start Date End Date Doug Valderrama MD [address] [place] [address] PCP - General Family Medicine 02/26/23 documented as of this encounter
--- OUTSIDE RECORDS SUMMARY | 2024-09-23 14:20 | XMS_ITS | Encounter Summary ---
Author Organization [facility] Include [facility] [address] Care Team Providers Care Statistical Reporting Analyst Name Role Phone Carlos Hernandez DO Primary Care Provider Encounter Details Date Type Department Care Team (Late st Contact Info) Description 02/19/2020 1:00 PM EDT Office Visit Dermatology at [address] [address] Holli Berrios MD Neoplasm of uncertain behavior of skin; High risk medication use Social History Tobacco Use Types Packs/Day Years [...] Progress Notes * Holli Berrios MD - 02/19/2020 1:00 PM EDT Images from the original note were not included. DERMATOLOGY OUTPATIENT CLINIC NOTE Date of service: 02/19/2020 Raghu Rosenthal : 1945 Provider: Holli Berrios MD PROBLEM: Psoriasis f/u SKIN HISTORY: - Psoriasis HPI Raghu Rosenthal is a 74 y.o. male. Patient is here today for a follow up of psoriasis. He changed from Skyrizi to Cosentyx about 5 weeks ago and has been treating topically with betamethasone. However, he reports that his psoriasis has not improved. He is still very itchy. 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 Family History: Lupus?? ADR: Allergies Allergen [...] Refill ??? betamethasone dipropionate (DIPROLENE) 0.05 % Ointment [...] 3, and 4. 10 Syringe 0 ??? risankizumab-rzaa (SKYRIZI) 150mg/1.66mL(75 mg/0.83 mL x2) Syringe Kit Inject 150 mg subcutaneously See Admin Instructions. Inject 150mg (2 syringes) subcutaneously at weeks 0, 4 and every 12 weeks thereafter. 2 each 5 ??? betamethasone dipropionate (DIPROLENE) 0.05 % Cream [...] areas on the scalp every other day. [place]-smoothe oil for more severe flares on the [...] mouth nightly. ??? mometasone (NASONEX) 50 mcg/actuation [place], Non-Aerosol 1 spray by Each Nare route [...] complaints EXAM General: NAD, pleasant, cooperative Skin: Examination of skin from the waist up was performed. This includes examination of the skin ofthe face, ears, scalp, neck, chest, axillae, left and right upper extremities, hands, back, and abdomen. Significant skin findings: - Palms and soles: Erythematous plaques with scale and superficial fissues. Trunk: Few scattered faint brown scaly patches. 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 Inject 300mg SQ q28 days. - Continue treating with betamethasone dipropionate 0.05% ointment twice daily as needed. - Labs today: CBC, CMP - Joint decision to proceed with punch biopsy today. - If biopsy is consistent with psoriasis, will consider adding Otezla. Procedure: Skin biopsy by punch technique. Location: Left flank Discussed indications for the procedure and expectations including risks and benefits. Verbal consent obtained. Skin prep with alcohol. Local anesthesia: 1% lidocaine with 1/100,000 epinephrine. A 4 mm punch biopsy to the level of the subcutis was performed. Wound closed with monofilament suture. There were no complications; the patient tolerated the procedure well. The wound was dressed. Post-procedure expectations (including discomfort management), wound care and activity restrictions were reviewed. Follow-up based on pathology results. Suture removal: 5-7 days RTC - Pending pathology. Note initiated and routed to physician for review and change by: WILBER Son I, Isabel Shore, have performed the documentation for this encounter [...] documentation. Holli Berrios MD Section of Dermatology [facility] * Holli Berrios MD - 02/19/2020 1:00 PM EDT Called patient with results. Showed eczematous derm. No features of CTCL. Patient states it is resolving with the steroid. He is otherwise doing well. Holli Berrios MD documented in this encounter Plan of Treatment Upcoming Encounters Date Type Department Care Team (Late st Contact Info) Description 12/18/2024 2:00 PM EDT Office Visit Dermatology at [facility] [address] [place] [address] Joyce Snyder MD [facility] [place] [place] [address] documented as of this encounter Goals Goal Patient Goal Type Associated Problems Recent Progress Patient-Stated? Author DH Home Medication Compliance and Understanding Patient Facing Action Plan On track( 018 9:29 AM EST) Jono Madrid, [facility] Note: Patient's specific desired goal: Reduction in psoriasis patches and psoriatic arthritis pain / symptoms. Measured by: pain scale, joints affected, BSA affected by psoriasis Time-frame to meet goal: ongoing - mostly effective at this time documented as of this encounter Procedures Procedure Name Priority Date/Time Associated Diagnosis Comments HEMOGRAM Routine 02/19/2020 1:46 PM EDT High risk medication use DIFFERENTIAL, AUTOMATED Routine 02/19/2020 1:46 PM EDT High risk medication use HC CBC,PLT & AUTO DIFF Routine 02/19/2020 1:46 PM EDT High risk medication use HC VENIPUNCTURE Routine 02/19/2020 1:46 PM EDT High risk medication use SURGICAL PATHOLOGY REPORT Routine 02/19/2020 1:40 PM EDT SPECIMEN TO PATHOLOGY Routine 02/19/2020 1:40 PM EDT Neoplasm of uncertain behavior of skin documented in this encounter Results * Differential, Automated (02/19/2020 1:46 PM EDT) Neutrophil % 60.8 % [facility] Neutrophil Absolute 3.07 1.70 - 6.10 x10(3)/[facility] Lymph % 23.0 % [facility] Lymphocytes Abs 1.2 0.9 - 3.2 x10(3)/[facility] Monocyte % 9.9 % [facility] Monocyte Abs 0.5 0.3 - 0.9 x10(3)/[facility] Eos % 5.5 % [facility] Eosinophils Abs 0.3 0.0 - 0.4 x10(3)/[facility] Basophil % 0.6 % [facility] Baso Absolute 0.0 0.0 - 0.1 x10(3)/[facility] Immature Gran % 0.20 % [facility] Comment: Immature granulocytes(IG's)percentage and absolute count will include metamyelocytes, myelocytes, and promyelocytes. Blood smears from CBCs yielding IG's will be scanned manually for concordance. If this scan disagrees with the automated IG or if promyelocytes are noted, a manual differential will be performed. Immature Gran Absolute 0.01 0.00 - 0.04 x10(3)/[facility] Blood specimen (specimen) 02/19/2020 1:46 PM EDT 02/19/2020 6:35 PM EDT Narrative Resulting Agency Comment Spec In Lab Holli Berrios MD HEMATOLOGY ORDERA BLES Performing Organization Address City/State/[facility] Co de Phone Number [facility] [place] [address] * (ABNORMAL) Hemogram (02/19/2020 1:46 PM EDT) White Blood Cell 5.0 4.0 - 9.5 x10(3)/[facility] Red Blood Cell 4.02(L) 4.58 - 5.54 x10(6)/ L [facility] Hemoglobin 12.1(L) 13.7 - 16.5 gm/dL [facility] Hematocrit 38.8(L) 40.5 - 48.5 % [facility] Mean Cell Volume 96.5(H) 82.9 - 93.[address] [facility] Mean Cell Hemoglobin 30.1 27.5 - 32.[address] [facility] Mean Cell Hemoglobin Concentration 31.2(L) 32.0 - 35.7 gm/dL [facility] Platelet 164 145 - 357 x10(3)/ L [facility] RDW Standard Deviation 50.2(H) 36.0 - 45.[address] [facility] RDW coefficient of variation 14.2(H) 11.4 - 13.8 % [facility] Mean Platelet Volume 10.8 7.6 - 12.[address] [facility] NRBC% auto 0.0 % [facility] NRBC Absolute 0.000 0.000 - 0.000 x10(3)/mc L [facility] Blood specimen (specimen) 02/19/2020 1:46 PM EDT 02/19/2020 6:35 PM EDT Narrative Resulting Agency Comment Spec In Lab Holli Berrios MD HEMATOLOGY ORDERA BLES [facility] [place] [address] * (ABNORMAL) Comprehensive metabolic panel (non-fasting) (02/19/2020 1:46 PM EDT) Glucose 126 65 - 199 mg/dL [facility] Comment:Diabetes: >=200 mg/d L plus symptoms Blood Urea Nitrogen 38(H) 10 - 20 mg/dL [facility] Creatinine 1.62(H) 0.80 - 1.50 mg/dL [facility] Sodium 138 135 - 145 mmol/L [facility] Potassium 4.4 3.5 - 5.0 mmol/L [facility] Comment: Please note: ??Patients with WBC >100,000 may have falsely elevated Potassium levels. ??For accurate Potassium quantification in these patients send serum separator tube (gold top) for subsequent determinations. ??Contact the Clinical Chemistry Laboratory if there are any questions. Chloride 101 98 - 107 mmol/L [facility] Carbon Dioxide 25 22 - 31 mmol/L [facility] Anion Gap 12 5 - 15 mmol/L [facility] Calcium 9.7 8.5 - 10.5 mg/dL [facility] Protein, Total 6.7 6.1 - 8.0 gm/dL [facility] Albumin 3.9 3.2 - 5.2 gm/dL [facility] Aspartate Aminotransferase 46(H) 0 - 39 unit/L [facility] Alanine Aminotransferase 26 0 - 55 unit/L [facility] Alkaline Phosphatase 52 40 - 130 unit/L [facility] Bilirubin, Total 0.4 0.2 - 1.3 mg/dL [facility] Est Glomerular Filtration Rate 41(L) >=60 mL/min/1. 73 m?? [facility] Comment: The eGFR was calculated using the CKD-EPI equation. As with all creatinine based estimates of kidney function, eGFR values calculated with the CKD-EPI equation are not accurate in patients with acute kidney failure, extremes of body mass or the acutely ill. http://[employer]/[facility] eGFR 48(L) >=60 mL/min/1. 73 m?? [facility] Comment: The eGFR was calculated using the CKD-EPI equation. As with all creatinine based estimates of kidney function, eGFR values calculated with the CKD-EPI equation are not accurate in patients with acute kidney failure, extremes of body mass or the acutely ill. http://[employer]/[facility] Blood specimen (specimen) 02/19/2020 1:46 PM EDT 02/19/2020 6:35 PM EDT Narrative Resulting Agency Comment Spec In Lab Holli Berrios MD CHEMISTRY ORDERAB LES [facility] [address] * Surgical Pathology Report (02/19/2020 1:40 PM EDT) Final Diagnosis [id number] ? Location: [facility] The signing pathologist has (i) examined the relevant preparation(s) for the specimen(s) and (ii) rendered or confirmed the diagnosis(es). . ?Surgical Pathology DIAGNOSIS Skin, left flank, punch biopsy: - Acanthosis with mild spongiosis and slight ?superficial perivascular lymphocytic infiltrate (see discussion) Electronically signed by: ??Deny FLEMING, PhD, Allan Verified: ??02/23/2020 ?Dermatopatholog ist Performed at: ??-[facility] Dept. of Pathology, [place], [place] DISCUSSION Focal parakeratosis overlying orthokeratosis is seen. ?No fungi are seen in PAS- reacted sections. ??Confluent ??parakeratosis or diminution of the ?? granular layer are not seen to suggest psoriasis. Atypical ?? lymphocytic infiltrate is not seen to suggest cutaneous T-cell lymphoma. 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 ??Clinicopatholog ic correlation is recommended. SPECIMEN(S) SUBMITTED A - Left flank, skin punch (1) CLINICAL INFORMATION Few scattered faint brown scaly patches. Psoriasiform dermatitis versus CTCL. SPECIMEN PROCESSING A - Labeled/Fixative: Left flank, formalin. Quantity/Size: ??Single, 0.4 cm. Tissue Description: Harper-white patchy skin punch excised to a depth of 0.5 cm. Sections/Processi ng: Inked, bisected and entirely submitted in 1 cassette labeled A1. ??MLL 02/23/2020 2:[address] [facility] SPECIMEN FROM SKIN / Unknown 02/19/2020 1:40 PM EDT 02/19/2020 1:40 PM EDT Holli Berrios MD PATHOLOGY/CYTOLOG Y ORDERABLES [facility] [place] [address] * Specimen to Pathology (02/19/2020 1:40 PM EDT) AP Specimen 02/19/2020 1:40 PM EDT 02/19/2020 6:[address] [facility] - 02/19/2020 6:45 PM EDT Specimen requisition ordered. ??Separate Pathology report to follow Resulting Agency Comment Spec In Lab Holli Berrios MD PATHOLOGY/CYTOLOG Y ORDERABLES [facility] [place] [address] documented in this encounter Visit Diagnoses Diagnosis Neoplasm of uncertain behavior of skin High risk medication use Encounter for long-term (current) use of other medications documented in this encounter Care Teams Statistical Reporting Analyst Relationship Specialty Start Date End Date Carlos Hernandez DO [address] [place] [address] PCP - General 08/16/10 02/25/23 documented as of this encounter
--- OUTSIDE RECORDS SUMMARY | 2024-09-23 14:20 | XMS_ITS | Encounter Summary ---
Author Organization [facility] Address [facility] [place] [address] Care Team Providers Care Accreditation Specialist Name Role Phone Doug Valderrama MD Primary Care Provider [phone] Encounter Details Date Type Department Care Team (Latest Contact Info) Description 05/23/2023 Travel Social History Tobacco Use Types Packs/Day [...] 2:00 PM EDT Office Visit Dermatology at [facility] [address] [place] [address] Joyce Snyder MD [facility] [place] [place] [address] documented as of this encounter Goals Goal Patient Goal Type Associated Problems Recent Progress Patient-Stated? Author Home Medication Compliance and Understanding Patient Facing Action Plan On track( 018 9:29 AM EST) No Jono Reed, [facility] Note: Patient's specific desired goal: Reduction in psoriasis patches and psoriatic arthritis pain / symptoms. Measured by: pain scale, joints affected, BSA affected by psoriasis Time-frame to meet goal: ongoing - mostly effective at this time documented as of this encounter Visit Diagnoses Not on filedocumented in this encounter Care Teams Accreditation Specialist Relationship Specialty Start Date End Date Doug Valderrama MD [address] [place] [address] PCP - General Family Medicine 02/26/23 documented as of this encounter
--- OUTSIDE RECORDS SUMMARY | 2024-09-23 14:20 | XMS_ITS | Encounter Summary ---
Author Organization [facility] [place] [address] Care Team Providers Care Automotive Fuel Systems Converter Name Role Phone Carlos Hernandez DO Primary Care Provider [phone] Reason for Visit * Reason Comments Medication Management Encounter Details Date Type Department Care Team (Late st Contact Info) Description 03/19/2020 Specialty [place] [phone] Viktor Ramírez [facility] Social History Tobacco Use Types Packs/Day [...] as of this encounter Progress Notes * Viktor Ramírez RPH - 03/19/2020 11:27 AM EDT Clinical Management Plan: Refill Specialty Pharmacy Consultation; Viktor Ramírez Chanell Comprehensive Medication Management (CMM) Raghu Joel Ariadna Mr. Raghu Rosenthal is a 74 y.o. [...] beneficiary Provider: plan sponsor pharmacist Visit Type: [facility] [place] Method of Contact: by telephone Cognitive [...] ??? Tetracyclines Medication Reconciliation Discrepancies (compared to [facility] med list) -none New medications: no New medical conditions: no [...] were made at the appointment and that [facility] is providing recommendations (summary located at top of note) for provider review and follow up. Viktor Ramírez RPH 03/19/20 11:28 AM documented in this encounter Plan of Treatment Upcoming Encounters Date Type Department Care Team (Late st Contact Info) Description 12/18/2024 2:00 PM EDT Office Visit Dermatology at [facility] [address] [place] [address] Joyce Snyder MD [facility] [place] [address] documented as of this encounter Goals Goal Patient Goal Type Associated Problems Recent Progress Patient-Stated? Author DH Home Medication Compliance and Understanding Patient Facing Action Plan On track( 018 9:29 AM EST) Jono Madrid, [facility] Note: Patient's specific desired goal: Reduction in psoriasis patches and psoriatic arthritis pain / symptoms. Measured by: pain scale, joints affected, BSA affected by psoriasis Time-frame to meet goal: ongoing - mostly effective at this time documented as of this encounter Visit Diagnoses Not on filedocumented in this encounter Care Teams [employer] Converter Relationship Specialty Start Date End Date Carlos Hernandez DO [address] [place] [address] [address] [place] [address] PCP - General 08/16/10 02/25/23 documented as of this encounter
--- OUTSIDE RECORDS SUMMARY | 2024-09-23 14:20 | XMS_ITS | Encounter Summary ---
Author Organization [facility] [place] [address] Care Team Providers Care Mental Health Clinician Name Role Phone Doug Valderrama MD Primary Care Provider [phone] Reason for Referral * Consultation (Priority 2) - Closed Specialty Diagnoses / Procedures Referred By Contjessica t Referred To Contact Dermatology Diagnoses Doug Hammond MD [address] [place] [address] [facility] [address] [place] [address] Referral ID Status Reason Start Date Expiration Date V isits Requested Visits Authorized [id number] Closed Consult, Test & Treat PCP Updated and/or Approved 04/23/2023 04/22/2024 6 6 Encounter Details Date Type Department Care Team (Late st Contact Info) Description 04/23/2023 Transcribe Orders eDH Incoming Referrals [phone] Doug Valderrama MD [address] [place], [place] [id number] Rash Social History Tobacco Use Types Packs/Day Years [...] 2:00 PM EDT Office Visit Dermatology at [facility] [address] [place] [address] Joyce Snyder MD [facility] [place] [address] Scheduled Referrals Name Type Priority Associated Diagnoses Order Schedule Referral to Dermatology Outpatient Referral Routine Rash Ordered: 04/23/2023 documented as of this encounter Goals Goal Patient Goal Type Associated Problems Recent Progress Patient-Stated? Author DH Home Medication Compliance and Understanding Patient Facing Action Plan On track( 018 9:29 AM EST) Jono Madrid, [facility] Note: Patient's specific desired goal: Reduction in psoriasis patches and psoriatic arthritis pain / symptoms. Measured by: pain scale, joints affected, BSA affected by psoriasis Time-frame to meet goal: ongoing - mostly effective at this time documented as of this encounter Visit Diagnoses Diagnosis Rash Rash and other nonspecific skin eruption documented in this encounter Care Teams Mental Health Clinician Relationship Specialty Start Date End Date Dogu Valderrama MD [address] [place] [address] [address] [facility] [address] [place] [address] PCP - General Family Medicine 02/26/23 documented as of this encounter
--- OUTSIDE RECORDS SUMMARY | 2024-09-23 14:20 | XMS_ITS | Encounter Summary ---
Author Organization [facility] [place] [address] Care Team Providers Care Printer Floor Covering Assistant Name Role Phone Carlos Hernandez DO Primary Care Provider Reason for Visit * Reason Comments Medication Management Patient Education Encounter Details Date Type Department Care Team (Late st Contact Info) Description 10/10/2019 Specialty [place] [phone] Izabel Cardenas RPH Social History Tobacco Use [...] Progress Notes * Izabel Cardenas RPH - 10/10/2019 9:48 AM EST Specialty Pharmacy Consultation; Izabel Cardenas RPH Comprehensive Medication Management (CMM) Raghu Rosenthal Diagnosis: Psoriatic Arthritis Therapy Start Date: 09/22/2019 Contact in person or via telephone:Telephone Mr. Raghu Rosenthal is a 74 y.o. (1945) male who was contacted in regard to specialty medication. Spoke with patient's regarding Skyrizi. A review of the medication therapy was performed. The medication was Refilled as scheduled, and all medication related questions and concerns were addressed. The specialty pharmacy staff will follow up with the patient 5-7 days prior to next refill. Is the patient willing to proceed with the Clinical Assessment? Yes Summary and Recommendations: Raghu Rosenthal's was contacted via telephone for a review of Skyrizi for the treatment of psoriatic arthritis. Patient's is aware of the copay and that we are working to see if we can get the torres down for him. She was given [facility] contact information for any questions. Patient's was educated on the importance of infection prevention including best practices for hand hygiene and the annual flu vaccine. Discussed the need to avoid live vaccines during treatment.Dose hold parameters were reviewed including suspected/known infection, prescribed antibiotic therapy, or scheduled surgery. He agrees to contact the clinic to review dose hold in these settings. Patient denies experiencing any of the potential side effects of Skyrizi including injection site reaction, headache, rash, and infections such as URTI/sinusitis. Patient is aware that it may take 3-4 months to experience the full benefit of Skyrizi. A review of dosing, storage, and administration was completed. Patient was educated on the dosing schedule, 2 syringes (150mg) subcutaneously at weeks 0 and 4, then every 12 weeks thereafter. Patientwas made aware that Skyrizi must be stored in the refrigerator and remains stable at room temperature for 4 hours. Patient injecting properly by allowing proper site rotation, site sterilization, andallowing the medication to reach room temperature prior to injection. Patient is familiar with injection techniques from previous medication and required no remedial counseling. Patient declined needing a sharps container. Clinic follow-up needed: no Allergies and Drug [...] calculate BMI. Medication Reconciliation Discrepancies (compared to [facility] med list) no Medication Adherence Patient reported [...] Outpatient Medications Medication Sig Dispense Refill ??? risankizumab-rzaa (SKYRIZI) 150mg/1.66mL(75 mg/0.83 mL x2) [...] areas on the scalp every other day. [place] Homeacre-Lyndora-smoothe oil for more severe flares on the [...] mouth nightly. ??? mometasone (NASONEX) 50 mcg/actuation Korbel, Non-Aerosol 1 spray by Each Nare route [...] 24 03/06/2019 BUN 32 (H) 03/06/2019 CREATININE 1.73 (H) 09/11/2019 GLUCOSE 92 03/06/2019 GLUCFASTING 153 (H) 09/03/2013 CALCIUM 10.6 (H) 03/06/2019 Lab Results Component Value Date ALT 37 09/11/2019 AST 47 (H) 09/11/2019 ALKPHOS 57 09/11/2019 BILITOT 0.4 09/11/2019 BILIDIR 0.2 09/11/2019 ALBUMIN 4.4 09/11/2019 ALBUMIN 4.4 09/11/2019 PROT 7.7 09/11/2019 Lab Results Component Value Date WBC 5.5 09/11/2019 HGB 13.3 (L) 09/11/2019 HCT 42.3 09/11/2019 MCV 93.6 (H) 09/11/2019 PLATELET 172 09/11/2019 No results found for: HA1C Immunization History [...] beneficiary Provider: plan sponsor pharmacist Visit Type: [facility] [place]-up Method of Contact: by telephone Cognitive Ability: good Cognitive Impairment Status Verified this Year: no Drug Interactions Provided the patient with educational material regarding drug interactions: yes Patient Counseling Counseled the patient on the following: reviewed medication changes since last visit, medication safety precautions education provided, drug interaction education provided to patient, doses and administration discussed, safe handling, storage, and disposal discussed, possible adverse effects and management discussed, possible drug and prescription drug interactions discussed, possible drug and OTC drug and food interactions discussed, lab monitoring and follow-up discussed, cost of medications and cost implications discussed, adherence and missed doses discussed, pharmacy contact information discussed, health goals discussed, monitoring medication discussed, over the counter products discussed, preventative care discussed, reminder to refill or belt picker medication discussed, self-monitoring discussed, timing of medications discussed, vaccination discussed, lifestyle modification education, referral needs discussed Drug Medication Management Summary Topics discussed: reviewed medication changes since last visit, medication safety precautions education provided, drug interaction education provided to patient, doses and administration discussed, safe handling, storage, and disposal discussed, possible adverse effects and management discussed, possible drug and prescription drug interactions discussed, possible drug and OTC drug and food interactions discussed, lab monitoring and follow-up discussed, cost of medications and cost implications discussed, adherence and missed doses discussed, pharmacy contact information discussed, health goals discussed, monitoring medication discussed, over the counter products discussed, preventative care discussed, reminder to refill or belt picker medication discussed, self-monitoring discussed, timing of medications discussed, vaccination discussed, lifestyle modification education, referral needs discussed Time spent: 1-15 min Treatment Outcomes No data found in [...] mitigation strategies, and interruptions in therapy: Yes Economic Assessment: Patient is agreeable to medication copay: yes Copay Amount: TBD - Currently $800.00 -- this is being looked into to see if we can find some copayassistance Day Supply: 28 Date Needed: 10/20/2019 Copay assistance required: no - not required, but we are checking to see if it's an option Physical Assessment: Functional limitations identified: no Is patient a fall risk: no Cognitive limitations identified such as orientation, memory, reasoning or judgement: no Other: no Social Assessment: Does the patient have a primary care specialist? no Patient has emergency contact on file: Yes Does patient need referral to health and social care teacher: No Does patient need referral to advocacy group: No Physical and Home Health Assessment: Is the patient able to store their medication as directed? Yes Is the patient in a safe home environment? Yes Do you have a support network? Yes Reviewed potential home safety hazards: Yes Therapy Assessment: Appropriate Therapy: Yes Current Medication Dosing/Route/Frequency: Skyrizi Inject 2 syringes (150mg) subcutaneously at weeks 0 and 4, and every 12 weeks thereafter Effective: yes - patient's symptoms are slowly improving, still some itching Current joints affected: hands, shoulders, left leg Current pain rating (1-10): 4 Estimated duration of morning joint stiffness: depends on the day Estimated number of recent flares: still getting better - flare from summer improved to no longer include scalp involvement Recent systemic corticosteroid use: no Patient experienced change in condition that affects treatment: no Patient experienced side effects from medication: no Occurrence of recent infections: no Administration issues identified: no Rotation of injection sites: Yes Medication room temperature prior to injection: Yes Patient Goals: Goals ??? DH Home Medication Compliance and Understanding Patient's specific desired goal: Reduction in psoriasis patches and psoriatic arthritis pain / symptoms. Measured by: pain scale, joints affected, BSA affected by psoriasis Time-frame to meet goal: ongoing - mostly effective at this time Is the patient on track to achieve goals of therapy? yes If no, what are the barriers and action plan to reach the goal: N/A Additional care/services needed: no Educational information or adherence tools provided: Yes Additional equipment/supplies required: no Care Plan Reviewed and Approved by both Pharmacist and Patient: Yes Did Care Plan Change? No If yes: Change to plans of care based on: Patient's request: N/A Condition: N/A Response to therapy: N/A Provider request: N/A Follow-up needed: No Informed patient of specialty pharmacy services: Yes -Patient received welcome packet: Yes Date Received: 08/14/2018 Delivery Method: Mail -Patient returned signed Rights & Responsibilities: Yes Date Received: 08/14/2018 Delivery Method: Mail -Patient is aware [...] reactions occur: Yes Patient Satisfaction with Therapy: yes - Still waiting to see more improvements, only been on therapy 1 month Patient understands no changes to current drug regimen were made at the appointment and that [facility] isproviding recommendations (summary located at top of note) for provider review and follow up. Izabel Cardenas RPH 10/10/19 10:02 AM documented in this encounter Plan of Treatment Upcoming Encounters Date Type Department Care Team (Late st Contact Info) Description 12/18/2024 2:00 PM EDT Office Visit Dermatology at [address] [phone] Joyce Snyder MD [facility] [place] [address] documented as of this encounter Goals Goal Patient Goal Type Associated Problems Recent Progress Patient-Stated? Author DH Home Medication Compliance and Understanding Patient Facing Action Plan On track( 018 9:29 AM EST) No Jono Reed RPH Note: Patient's specific desired goal: Reduction in psoriasis patches and psoriatic arthritis pain / symptoms. Measured by: pain scale, joints affected, BSA affected by psoriasis Time-frame to meet goal: ongoing - mostly effective at this time documented as of this encounter Visit Diagnoses Not on filedocumented in this encounter Care Teams Printer Floor Covering Assistant Relationship Specialty Start Date End Date Carlos Hernandez DO [address] [place] [address] PCP - General 08/16/10 02/25/23 documented as of this encounter
--- OUTSIDE RECORDS SUMMARY | 2024-09-23 14:20 | XMS_ITS | Encounter Summary ---
Author Organization [facility] [place] [address] Care Team Providers Care Waiter/Waitress Counter Name Role Phone Carlos Hernandez DO Primary Care Provider Encounter Details Date Type Department Care Team (Late st Contact Info) Description 02/22/2023 Telephone Cardiology at [address] [phone] Leona Pritchard Social History Tobacco Use Types Packs/Day Years [...] encounter Miscellaneous Notes * Telephone Encounter - Leona Pritchard - 02/22/2023 8:28 AM EDT Request for pacemaker implant procedure note faxed to: [facility] P: [phone] F: [phone] Leona Pritchard EP Scheduling/Department Chair documented in this encounter Plan of Treatment Upcoming Encounters Date Type Department Care Team (Late st Contact Info) Description 12/18/2024 2:00 PM EDT Office Visit Dermatology at [facility] [address] [place] [address] Joyce Snyder MD [facility] [place] [address] documented as of this encounter Goals Goal Patient Goal Type Associated Problems Recent Progress Patient-Stated? Author DH Home Medication Compliance and Understanding Patient Facing Action Plan On track( 018 9:29 AM EST) Jono Madrid, [facility] Note: Patient's specific desired goal: Reduction in psoriasis patches and psoriatic arthritis pain / symptoms. Measured by: pain scale, joints affected, BSA affected by psoriasis Time-frame to meet goal: ongoing - mostly effective at this time documented as of this encounter Visit Diagnoses Not on filedocumented in this encounter Care Teams Waiter/Waitress Counter Relationship Specialty Start Date End Date Carlos Hernandez DO [address] [place] [address] [address] [place] [address] PCP - General 08/16/10 02/25/23 documented as of this encounter
--- OUTSIDE RECORDS SUMMARY | 2024-09-23 14:20 | XMS_ITS | Encounter Summary ---
Author Organization [facility] [place] [address] Care Team Providers Care Food Mixer Name Role Phone Carlos Hernandez DO Primary Care Provider Encounter Details Date Type Department Care Team (Late st Contact Info) Description 06/09/2019 Orders Only Cardiology at [address] [phone] Raghu Graham MD Hyperlipidemia, unspecified hyperlipidemia type (Primary Dx) Social History Tobacco Use Types Packs/Day Years [...] at [facility] [address] [place] [phone] Joyce Snyder MD [facility] [place] [address] documented as of this encounter Goals Goal Patient Goal Type Associated Problems Recent Progress Patient-Stated? Author DH Home Medication Compliance and Understanding Patient Facing Action Plan On track( 018 9:29 AM EST) No Jono Reed, [facility] Note: Patient's specific desired goal: Reduction in psoriasis patches and psoriatic arthritis pain / symptoms. Measured by: pain scale, joints affected, BSA affected by psoriasis Time-frame to meet goal: ongoing - mostly effective at this time documented as of this encounter Visit Diagnoses Diagnosis Hyperlipidemia, unspecified hyperlipidemia type- Primary documented in this encounter Care Teams Food Mixer Relationship Specialty Start Date End Date Carlos Hernandez DO [address] [place] [address] PCP - General 08/16/10 02/25/23 documented as of this encounter
--- OUTSIDE RECORDS SUMMARY | 2024-09-23 14:20 | XMS_ITS | Encounter Summary ---
Author Organization [facility] Address [facility] K[facility]le [facility] [place] [address] Care Team Providers Care Park Recreation Manager Name Role Phone Carlos Hernandez DO Primary Care Provider Reason for Visit * Reason Onset Date Comments Medication Refill 01/09/2020 Encounter Details Date Type Department Care Team (Late st Contact Info) Description 01/09/2020 Refill Dermatology at [facility] [address] [place] [phone] Holli Berrios MD Social History Tobacco Use [...] 2:00 PM EDT Office Visit Dermatology at [facility] [address] [place] [phone] Joyce Snyder MD [facility] [place] [address] documented as of this encounter Goals Goal Patient Goal Type Associated Problems Recent Progress Patient-Stated? Author DH Home Medication Compliance and Understanding Patient Facing Action Plan On track( 018 9:29 AM EST) Jono Madrid, [facility] Note: Patient's specific desired goal: Reduction in psoriasis patches and psoriatic arthritis pain / symptoms. Measured by: pain scale, joints affected, BSA affected by psoriasis Time-frame to meet goal: ongoing - mostly effective at this time documented as of this encounter Visit Diagnoses Not on filedocumented in this encounter Care Teams Park Recreation Manager Relationship Specialty Start Date End Date Carlos Hernandez DO [address] [place] [address] PCP - General 08/16/10 02/25/23 documented as of this encounter
--- OUTSIDE RECORDS SUMMARY | 2024-09-23 14:20 | XMS_ITS | Encounter Summary ---
Author Organization [facility] [place] [address] Care Team Providers Care Ceo & Board Director Name Role Phone Doug Valderrama MD Primary Care Provider [phone] Reason for Visit * Reason Comments Specialty Pharmacy Review Encounter Details Date Type Department Care Team (Late st Contact Info) Description 05/24/2023 Specialty [place] [phone] Miguel Shelton, [facility] Social History Tobacco Use Types Packs/Day [...] encounter Progress Notes * Miguel Shelton - 05/24/2023 11:59 PM EDT [facility] has completed a benefits investigation for Raghu Rosenthal to review their eligibility to fill at [facility]. Per patient's medication list they are prescribed COSENTYX 300 MG/2 SYRINGES and the medication is able to be filled at the [facility]. The patient is not currently on this medication. documented in this encounter Plan of Treatment Upcoming Encounters Date Type Department Care Team (Late st Contact Info) Description 12/18/2024 2:00 PM EDT Office Visit Dermatology at [facility] [address] [place] [address] Joyce Snyder MD [facility] [place] [address] documented as of this encounter Goals Goal Patient Goal Type Associated Problems Recent Progress Patient-Stated? Author DH Home Medication Compliance and Understanding Patient Facing Action Plan On track( 018 9:29 AM EST) No Jono Reed, [facility] Note: Patient's specific desired goal: Reduction in psoriasis patches and psoriatic arthritis pain / symptoms. Measured by: pain scale, joints affected, BSA affected by psoriasis Time-frame to meet goal: ongoing - mostly effective at this time documented as of this encounter Visit Diagnoses Not on filedocumented in this encounter Care Teams Ceo & Board Director Relationship Specialty Start Date End Date Doug Valderrama MD [address] [facility] [address] [place] [address] PCP - General Family Medicine 02/26/23 documented as of this encounter
--- OUTSIDE RECORDS SUMMARY | 2024-09-23 14:20 | XMS_ITS | Encounter Summary ---
Author Organization [facility] [place] [address] Care Team Providers Care Operator Bearer Systems Name Role Phone Carlos Hernandez DO Primary Care Provider Encounter Details Date Type Department Care Team (Late st Contact Info) Description 02/19/2020 Specialty [place] [address] Tere Bui, VP [employer] Social History Tobacco Use Types Packs/Day Years [...] 2:00 PM EDT [facility] [address] [place] [address] Joyce Snyder MD [facility] [place] [address] documented as of this encounter Goals Goal Patient Goal Type Associated Problems Recent Progress Patient-Stated? Author [facility] Medication Compliance and Understanding Patient Facing [...] on filedocumented in this encounter Care Teams Operator Bearer Systems Relationship Specialty Start Date End Date Carlos Hernandez DO [address] [place] [address] PCP - General 08/16/10 02/25/23 documented as of this encounter
--- OUTSIDE RECORDS SUMMARY | 2024-09-23 14:20 | XMS_ITS | Encounter Summary ---
Author Organization [facility] [place] [address] Care Team Providers Care Hogshead Hand Name Role Phone Doug Valderrama MD Primary Care Provider [phone] Reason for Visit * Consultation (Routine) - Closed Specialty Diagnoses / Procedures Referred By Contact Referred To Contact Electrophysiology / Cardiology Diagnoses Cardiac pacemaker in situ Bradycardia PCM check Doug Valderrama MD [address] [place] [address] [facility] [address] [place] [phone] Referral ID Status Reason Start Date Expiration Date V isits Requested Visits Authorized [id number] Closed Consult, Test & Treat PCP Updated and/or Approved 02/22/2023 02/22/2024 1 Encounter Details Date Type Department Care Team (Late st Contact Info) Description 03/07/2023 1:30 PM EDT Office Visit Cardiology at [address] [phone] Jena Cruz shovel handle assembler pacemaker in situ; Bradycardia Social History Tobacco [...] Pulse 73 03/07/2023 1:53 PM EDT Temperature - - Respiratory Rate - - Oxygen Saturation 100% 03/07/2023 1:53 PM EDT Inhaled Oxygen Concentration - - Weight 107.9 kg (237 lb 14.4 oz) 03/07/2023 1:53 PM EDT Height 172.7 cm (5' 8) 03/07/2023 1:53 PM EDT Body Mass Index 36.17 03/07/2023 1:53 PM EDT documented in this encounter Progress Notes * Jena Cruz RN - 03/07/2023 1:30 PM EDT Images from the original note were not included. Clinical Electrophysiology Device Service Note Raghu Rosenthal is a 77 y.o. male with a PMH of CABGx3/tissue AVR/[place]ort[place] [address] Snell. 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 Pt presents today to establish care with the device clinic. He states he was on vacation in [place] when he got hospitalized due to chest pain, SOB etc. He received a TAVR on January 08, 2023, he also received a left main stent on January 08, 2023 and received a PIPE MACHINE OPERATOR-P on January 12, 2023 at [facility] in [place], [place]. He denies any issues with the device or pocket. PCP: Doug Valderrama [facility] ([facility] Final Parameters at implant: Generator: Biotronik Edora 8 HF-T QP Serial number [id number] implanted January 12, 2023 Settings: DDD-CLS/BiV 70/120 Presenting rhythm: AP/BiV Underlying rhythm: SB in the 50s Atrial Lead: P wave: 5.9mV Impedance: 604 Threshold: 0.8V @ 0.4ms Ventricular Lead: R wave: 5.9mV Impedance: 546 Threshold: 1.1V @ 0.4ms LV Lead: Amplitude: 12.5mV Impedance: 546 Threshold: 1.7V @ 1.0ms Since January 13, 2023 Heart rate histograms: reasonable distribution Pacing percentages: AP 91%; BiV 95% PIPE MACHINE OPERATOR 96% Mode switch episodes: none VHR: none PVCs: 3% Battery: 5 years 10 months remaining Wound assessment: well healed left chest with no signs or symptoms of infection Reprogramming: Atrium pulse amplitude: was 3.6 now changed to 2.0 RV pulse amplitude: was 3.6 now changed to 2.2 LV pulse amplitude: was 3.6 now changed to 2.2 Plan: Would like to follow up in [facility]- asked scheduling to facilitate this. Remotely every3 months. Provider: Jena Cruz RN with PATRICK Wylie Attending: Dr. Brenner documented in this encounter Plan of Treatment Upcoming Encounters Date Type Department Care Team (Late Contact Info) Description 12/18/2024 2:00 PM EDT Office Visit Dermatology at [address] [phone] Joyce Snyder MD [facility] [place] [place] [address] documented as of this encounter Goals Goal [...] dysrhythmias documented in this encounter Care Teams Hogshead Hand Relationship Specialty Start Date End Date Doug Valderrama MD [address] [place] [address] PCP - General Family Medicine 02/26/23 documented as of this encounter
--- OUTSIDE RECORDS SUMMARY | 2024-09-23 14:20 | XMS_ITS | Encounter Summary ---
Author Organization [facility] Address [facility] [place] [address] Care Team Providers Care Scouring Pads Supervisor Name Role Phone Carlos Hernandze DO Primary Care Provider Encounter Details Date Type Department Care Team (Latest Contact Info) Description 09/11/2019 10:30 AM EST [place] [address] Martin Tim MD [facility] [place] [address] Psoriatic arthritis; Severe obesity due to excess calories with serious comorbidity and body mass index (BMI) in 99th percentile for age in pediatric patient; Chronic pain of both shoulders; Bilateral hip pain; Pain in both feet; High risk medication use; Inflammatory arthropathy; Primary osteoarthritis of both knees; Psoriasis Social History Tobacco Use Types Packs/Day [...] Sign Reading Time Taken Comments Blood Pressure 132/65 09/11/2019 10:33 AM EST Pulse 46 09/11/2019 10:33 AM EST Temperature 36.4 ??C (97.6 ??F) 09/11/2019 10:[address] Respiratory Rate - - Oxygen Saturation 97% 09/11/2019 10:33 AM EST Inhaled Oxygen Concentration - - Weight 133.4 kg (294 lb) 09/11/2019 10:33 AM EST Height 177.8 cm (5' 10) 09/11/2019 10:33 AM EST Body Mass Index 42.18 09/11/2019 10:33 AM EST documented in this encounter Progress Notes * Martin Tim MD - 09/11/2019 10:30 AM EST Rheumatology Follow - Up Note Rheum Hx SUlfaslazine could not tolerate Methotrexate abnl liver Leflunamide allergy Enbrel 2011 Stelara failed Cosentyx on right now - Cosnetyx stopped working in january 2019 Interval Hx: Raghu Rosenthal is a 74 y.o. male who presents today for evaluation of PsA And Ps. He is concerned about what worsening psoriasis on his scalp as well as back stomach legs and arms. He said everything was under control until January of this year when things began to flare. He has lost weight is been nochange in his diet. He is also curious if his joints have also worsened in that time. Describes both bilateral foot and shoulder pain worse with activity morning stiffness anywhere between 30 to 45 minutes without swelling redness or warmth of the joints. Swelling warmth or Redness of the Joints None Morning stiffness: 45 Pain Improves with: tylenol Pain worsens with: activity Remainder ROS 11 WNL Past Medical History: Diagnosis Date ??? CAD (coronary artery disease) ??? Diabetes mellitus 05/22/2019 ??? GERD (gastroesophageal reflux disease) ??? Hypertension ??? OLIVIER (obstructive sleep apnea) ??? Renal insufficiency ??? Unspecified cerebral artery occlusion with cerebral infarction Patient Active Problem List Diagnosis Date Noted ??? Diabetes mellitus 05/22/2019 ??? Osteoarthritis of both knees 10/08/2018 ??? Bradycardia 02/21/2018 ??? Psoriatic arthritis 10/29/2017 ??? CAD (coronary artery disease) 07/05/2016 ??? (aortic stenosis) 08/19/2013 ??? Obesity 04/22/2012 ??? HTN (hypertension) 04/22/2012 ??? Hyperlipidemia 04/22/2012 ??? GERD (gastroesophageal reflux disease) 04/22/2012 ??? Sleep apnea 04/22/2012 ??? Former smoker 04/22/2012 ??? 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 Subarachnoid hemorrhage 04/22/2012 ??? Fatty liver 04/22/2012 ??? Pancreatitis 04/22/2012 ??? Cholelithiasis 04/22/2012 ??? Diverticulitis 04/22/2012 ??? Abdominal panniculus 04/22/2012 ??? Psoriasis 05/05/2011 ??? Depression 05/04/2011 Past Surgical History: Procedure Laterality Date ??? PRO AORTOPLAS FOR SUPRAVALV STEN 09/02/2013 @AORTOPLASTY FOR SUPRAVALVULAR STENOSIS performed by Mathew Perla MD at [facility] MAIN OR ??? PRO CABG, ARTERIAL, SINGLE 09/02/2013 @CABG, USING ARTERIAL GRAFT;SINGLE ARTERIAL GRAFT performed by Mathew Perla MD at [facility] OR ??? PRO CABG, ARTERY-VEIN, SINGLE 09/02/2013 @CABG, VENOUS & ARTERIAL GRAFT;SINGLE VEIN GRAFT performed by Mathew Perla MD at [facility] OR ??? PRO ENDOSCOPY W/VIDEO-ASST VEIN HARVEST, CABG 09/02/2013 ENDOSCOPIC HARVEST VEIN(S) FOR CABG performed by Mathew Perla MD at [facility] MAIN OR ??? PRO REPLACE AORT VALV, PROSTH VALV 09/02/2013 @REPLACE AORTIC VALVE, W\CPB, W\PROSTHETIC VALVE performed by Mathew Perla MD at [facility] MAIN OR Family History Problem Relation Age of Onset ??? Cancer Mother Social History Socioeconomic History ??? Marital status: Spouse name: None ??? Number of children: None ??? Years of education: None ??? Highest education level: None Occupational History ??? None Social Needs ??? Financial resource strain: None ??? Food insecurity: Worry: None Inability: None ??? Transportation needs: Medical: None Non-medical: None Tobacco Use ??? Smoking status: Former Smoker Last attempt to quit: 01/09/2001 Years since quittin.6 ??? Smokeless tobacco: Never Used Substance and Sexual Activity ??? Alcohol use: Yes Comment: SOCIAL ??? Drug use: No ??? Sexual activity: None Lifestyle ??? Physical activity: Days per week: None Minutes per session: None ??? Stress: None Relationships ??? Social connections: Talks on phone: None Gets together: None Attends cheondoism service: None Active member of club or organization: None Attends meetings of clubs or organizations: None Relationship status: None ??? Intimate partner violence: Fear of current or ex partner: None Emotionally abused: None Physically abused: None Forced sexual activity: None Other Topics Concern ??? None Social History Narrative ??? None Current Outpatient Medications Medication Sig Dispense Refill ??? betamethasone dipropionate (DIPROLENE) 0.05 % Cream Apply to the affected areas on the back andflanks twice daily, as needed. 45 g 1 ??? betamethasone dipropionate (DIPROLENE) 0.05 % Lotion Apply to the affected areas on the scalp every other day. [place]-smoothe oil for more severe flares on the [...] Take 1 tablet by mouth daily. ??? mometasone (NASONEX) 50 mcg/actuation [place], Non-Aerosol 1 spray by Each Nare route as needed. Indications: as needed ??? ranitidine (ZANTAC) 150 mg tablet Take 150 mg by mouth 2 times daily. No current facility-administered medications for this visit. Current Outpatient Medications on File Prior to Visit Medication Sig Dispense Refill ??? betamethasone dipropionate (DIPROLENE) 0.05 % Cream Apply to the affected areas on the back andflanks twice daily, as needed. 45 g 1 ??? betamethasone dipropionate (DIPROLENE) 0.05 % Lotion Apply to the affected areas on the scalp every other day. [place]-smoothe oil for more severe flares on the [...] Take 1 tablet by mouth daily. ??? mometasone (NASONEX) 50 mcg/actuation [place], Non-Aerosol 1 spray by Each Nare route as needed. Indications: as needed ??? ranitidine (ZANTAC) 150 mg tablet Take 150 mg by mouth 2 times daily. No current facility-administered medications on file prior to visit. Allergies Allergen Reactions ??? Venom-Honey Bee Shortness Of Breath ??? Vicodin [Hydrocodone-Acetaminophen] Shortness Of Breath Problems breathing ??? Morphine Sulfate Nausea And Vomiting ??? Arava [Leflunomide] Rash RASH ??? Clarithromycin ??? Hydrocodone Bitartrate ??? Indomethacin ??? Lansoprazole ??? Lipitor [Atorvastatin] Joint pain ??? Other [Unclassified Drug] Nausea And Vomiting and Other (See Comments) IV dyes all extremtites cold ??? Pravastatin Sodium ??? Tetracyclines Physical Exam: BP 132/65 Pulse (!) 46 Temp 36.4 ??C (97.6 ??F) (Oral) Ht 177.8 cm (5' 10) Wt 133.4 kg (294 lb) SpO2 97% BMI 42.18 kg/m?? General: High BMI NAD HEENT: Mucous membranes are moist, no oral mucosal ulcerations, temporal artery non-palpable Neck: Supple, no lymphadenopathy, full range of motion. Cardiovascular: RR, Lungs: No increased WOB Abdomen: Soft, non tender, non distended, + bowel sounds, no hepatosplenomegaly. Neuro: Alert and oriented x3. Cranial nerves II through XII grossly intact. - Strength 5/5 throughout, Skin: (-)ulcers, skin was deferred because of seeing dermatology later today Vascular: Pulses are equal in all extremities. MSK Back: Non tender over the spine and costovertebral angles bilaterally. (-)Porfirio Extremities Shoulders: FROM, non-tender to palpation, Elbows:FROM, (-)pain, (-)nodules Wrists: FROM, no swelling, non-tender Hands: No synovitis, no MCP compression tenderness, full claw and fist Hips: FROM, (-) fader (-porfirio) Knees: (-)effusions, non-tender ROM Ankles: FROM, non-tender, no swelling Feet: no MTP compression tenderness, anteriod foot pain Spine, shoulders, elbows, wrists, fingers, hips, knees and ankles; no active swelling, tenderness or synovitis at any joint. No soft tissue nodules. Labs: Studies: Assessment: Raghu Rosenthal is a 74 y.o. male who presents today with ROBERTO of Dr Singh History of psoriatic arthritis has been on methotrexate, sulfasalazine, leflunomide with multiple side effects as well this is been on Enbrel, Stelara and currentlyCosentyx. From a psoriatic arthritis standpoint the patient seems to be well controlled on current medications most of his symptoms in his shoulders and the tops of his feet seem to be more related to osteoarthritis we will get x-rays of both today to see if there is any evidence of inflammatory arthritis but low suspicion at this time. However patient does report active psoriasis is seen Derm later today possibilities moving forward is switching amylase or possibly adding Otezla to his current regimen. This would be more for skin and for active arthritis so we will have Derm way and patient may be a candidate for phototherapy or topicals based on the extent of skin involvement. Plan or Recommendation : Orders Placed This Encounter Procedures ??? XR Foot Min 3 views Bilat (Generic) ??? XR Shoulder Bilat (Generic) ??? CRP, acute inflammation ??? CBC (with Diff) ??? Albumin Level ??? Creatinine ??? Hepatic Function Panel ??? Sedimentation rate ??? Lipid Panel (Reflex Direct LDL) documented in this encounter Miscellaneous Notes * Addendum Note - Renetta Sotelo - 09/11/2019 10:30 AM ESTAddended by: RENETTA SOTELO on: 09/11/2019 02:40 PM Modules accepted: Orders documented in this encounter Plan of Treatment Upcoming Encounters Date Type Department Care Team (Late st Contact Info) Description 12/18/2024 2:00 PM EDT Office Visit Dermatology at [facility] [address] [place] [address] Joyce Snyder MD [facility] [place] [address] documented as of this encounter Goals Goal Patient Goal Type Associated Problems Recent Progress Patient-Stated? Author DH Home Medication Compliance and Understanding Patient Facing Action Plan On track( 018 9:29 AM EST) Jono Madrid, [facility] Note: Patient's specific desired goal: Reduction in psoriasis patches and psoriatic arthritis pain / symptoms. Measured by: pain scale, joints affected, BSA affected by psoriasis Time-frame to meet goal: ongoing - mostly effective at this time documented as of this encounter Procedures Procedure Name Priority Date/Time Associated Diagnosis Comments HC C-REACTIVE PROTEIN Routine 09/11/2019 2:21 PM EST Psoriatic arthritis Severe obesity due to excess calories with serious comorbidity and body mass index (BMI) in 99th percentile for age in pediatric patient Chronic pain of both shoulders Bilateral hip pain Pain in both feet HEMOGRAM Routine 09/11/2019 2:21 PM EST Psoriatic arthritis Severe obesity due to excess calories with serious comorbidity and body mass index (BMI) in 99th percentile for age in pediatric patient Chronic pain of both shoulders Bilateral hip pain Pain in both feet DIFFERENTIAL, AUTOMATED Routine 09/11/2019 2:21 PM EST Psoriatic arthritis Severe obesity due to excess calories with serious comorbidity and body mass index (BMI) in 99th percentile for age in pediatric patient Chronic pain of both shoulders Bilateral hip pain Pain in both feet HC CREATININE Routine 09/11/2019 2:21 PM EST Psoriatic arthritis Severe obesity due to excess calories with serious comorbidity and body mass index (BMI) in 99th percentile for age in pediatric patient Chronic pain of both shoulders Bilateral hip pain Pain in both feet HC ESR-SEDIMENTATION RATE, BLOOD Routine 09/11/2019 2:21 PM EST Psoriatic arthritis Severe obesity due to excess calories with serious comorbidity and body mass index (BMI) in 99th percentile for age in pediatric patient Chronic pain of both shoulders Bilateral hip pain Pain in both feet HC CBC,PLT & AUTO DIFF Routine 09/11/2019 2:21 PM EST Psoriatic arthritis Severe obesity due to excess calories with serious comorbidity and body mass index (BMI) in 99th percentile for age in pediatric patient Chronic pain of both shoulders Bilateral hip pain Pain in both feet ALBUMIN LEVEL Routine 09/11/2019 2:21 PM EST Psoriatic arthritis Severe obesity due to excess calories with serious comorbidity and body mass index (BMI) in 99th percentile for age in pediatric patient Chronic pain of both shoulders Bilateral hip pain Pain in both feet HEPATIC FUNCTION PANEL Routine 09/11/2019 2:21 PM EST Psoriatic arthritis Severe obesity due to excess calories with serious comorbidity and body mass index (BMI) in 99th percentile for age in pediatric patient Chronic pain of both shoulders Bilateral hip pain Pain in both feet LIPID PANEL (REFLEX DIRECT LDL) Routine 09/11/2019 2:21 PM EST Psoriatic arthritis Severe obesity due to excess calories with serious comorbidity and body mass index (BMI) in 99th percentile for age in pediatric patient Chronic pain of both shoulders Bilateral hip pain Pain in both feet documented in this encounter Results * Differential, Automated (09/11/2019 2:21 PM EST) Neutrophil % 67.0 % [facility] Neutrophil Absolute 3.67 1.70 - 6.10 x10(3)/[facility] Lymph % 21.9 % [facility] Lymphocytes Abs 1.2 0.9 - 3.2 x10(3)/[facility] Monocyte % 6.6 % [facility] Monocyte Abs 0.4 0.3 - 0.9 x10(3)/[facility] Eos % 3.6 % [facility] Eosinophils Abs 0.2 0.0 - 0.4 x10(3)/[facility] Basophil % 0.7 % [facility] Baso Absolute 0.0 0.0 - 0.1 x10(3)/[facility] Immature Gran % 0.20 % [facility] Comment: Immature granulocytes(IG's)percentage and absolute count will include metamyelocytes, myelocytes, and promyelocytes. Blood smears from CBCs yielding IG's will be scanned manually for concordance. If this scan disagrees with the automated IG or if promyelocytes are noted, a manual differential will be performed. Immature Gran Absolute 0.01 0.00 - 0.04 x10(3)/mcL [facility] Blood specimen (specimen) 09/11/2019 2:21 PM EST 09/11/2019 4:11 PM EST Narrative Resulting Agency Comment Spec In Lab Martin Tim MD HEMATOLOGY ORDERABLE S [facility] [place] [address] * (ABNORMAL) Hemogram (09/11/2019 2:21 PM EST) White Blood Cell 5.5 4.0 - 9.5 x10(3)/mc L [facility] Red Blood Cell 4.52(L) 4.58 - 5.54 x10(6)/mc [facility] Hemoglobin 13.3(L) 13.7 - 16.5 gm/dL [facility] Hematocrit 42.3 40.5 - 48.5 % [facility] Mean Cell Volume 93.6(H) 82.9 - 93.1 [facility] Mean Cell Hemoglobin 29.4 27.5 - 32.1 pg [facility] Mean Cell Hemoglobin Concentration 31.4(L) 32.0 - 35.7 gm/dL [facility] Platelet 172 145 - 357 x10(3)/mc L [facility] RDW Standard Deviation 46.6(H) 36.0 - 45.0 [facility] RDW coefficient of variation 13.6 11.4 - 13.8 % [facility] Mean Platelet Volume 10.1 7.6 - 12.9 [facility] NRBC% auto 0.0 % [facility] NRBC Absolute 0.000 0.000 - 0.000 x10(3)/ L [facility] Blood specimen (specimen) 09/11/2019 2:21 PM EST 09/11/2019 4:11 PM EST Narrative Resulting Agency Comment Spec In Lab Martin Tim MD HEMATOLOGY ORDERABLE S Performing Organization Address [facility] Co de Phone Number [facility] [place] [address] * CRP, acute inflammation (09/11/2019 2:21 PM EST) C-Reactive Protein 4.2 <=4.9 mg/L [facility] Blood specimen (specimen) 09/11/2019 2:21 PM EST 09/11/2019 4:24 PM EST Narrative Resulting Agency Comment Spec In Lab Martin Tim MD CHEMISTRY ORDERABLES Performing Organization Address [facility] Co de Phone Number [facility] [place] [address] * Albumin Level (09/11/2019 2:21 PM EST) Albumin 4.4 3.2 - 5.2 gm/dL [facility] Blood specimen (specimen) 09/11/2019 2:21 PM EST 09/11/2019 4:24 PM EST Narrative Resulting Agency Comment Spec In Lab Martin Tim MD CHEMISTRY ORDERABLES Performing Organization Address [facility] Co de Phone Number [facility] [place] [address] * (ABNORMAL) Creatinine (09/11/2019 2:21 PM EST) Creatinine 1.73(H) 0.80 - 1.50 mg/dL [facility] Est Glomerular Filtration Rate 38(L) >=60 mL/min/1.7 3 m?? [facility] Comment: The eGFR was calculated using the CKD-EPI equation. As with all creatinine based estimates of kidney function, eGFR values calculated with the CKD-EPI equation are not accurate in patients with acute kidney failure, extremes of body mass or the acutely ill. http://[employer]/[facility] CITYnkf eGFR 44(L) >=60 mL/min/1.7 3 m?? [facility] Comment: The eGFR was calculated using the CKD-EPI equation. As with all creatinine based estimates of kidney function, eGFR values calculated with the CKD-EPI equation are not accurate in patients with acute kidney failure, extremes of body mass or the acutely ill. http://[employer]/[facility] CITYnkf Blood specimen (specimen) 09/11/2019 2:21 PM EST 09/11/2019 4:24 PM EST Narrative Resulting Agency Comment Spec In Lab Martin Tim MD CHEMISTRY ORDERABLES Performing Organization Address [facility] Co de Phone Number [facility] [place] [address] * (ABNORMAL) Hepatic Function Panel (09/11/2019 2:21 PM EST) Protein, Total 7.7 6.1 - 8.0 gm/dL [facility] Albumin 4.4 3.2 - 5.2 gm/dL [facility] Aspartate Aminotransferase 47(H) 0 - 39 unit/L [facility] Alanine Aminotransferase 37 0 - 55 unit/L [facility] Alkaline Phosphatase 57 40 - 130 unit/L [facility] Bilirubin, Total 0.4 0.2 - 1.3 mg/dL [facility] Bilirubin, Direct 0.2 0.0 - 0.3 mg/dL [facility] Blood specimen (specimen) 09/11/2019 2:21 PM EST 09/11/2019 4:24 PM EST Narrative Resulting Agency Comment Spec In Lab Martin Tim MD CHEMISTRY ORDERABLES Performing Organization Address [facility] Co de Phone Number [facility] [place] [address] * (ABNORMAL) Sedimentation rate (09/11/2019 2:21 PM EST) Sedimentation Rate Automated 21(H) 0 - 15 mm/hr [facility] Blood specimen (specimen) 09/11/2019 2:21 PM EST 09/11/2019 4:11 PM EST Narrative Resulting Agency Comment Spec In Lab Martin Tim MD HEMATOLOGY ORDERABLE S Performing Organization Address City/State/[facility] Co de Phone Number [facility] [place] [address] * Lipid Panel (Reflex Direct LDL) (09/11/2019 2:21 PM EST) Cholesterol, Total 149 mg/dL [facility] Comment: Lower Risk: <200 mg/dL Average Risk: 200-239 mg/dL Higher Risk: >xc=050 mg/dL Triglyceride 100 mg/dL [facility] Comment: Average Risk/Lower Risk: <150 mg/dL Borderline High Risk: 150-199 mg/dL High Risk: 200-499 mg/dL Very High Risk: >rd=573 mg/dL HDL Cholesterol 59 mg/dL [facility] Comment: Males: ?? Higher Risk: <40 mg/dL Females: ?? HIgher Risk: <50 mg/dL LDL Cholesterol 70 mg/dL [facility] Comment: Lowest Risk: <100 mg/dL Lower Risk: 100-129 mg/dL Borderline High Risk: 130-159 mg/dL High Risk: 160-189 mg/dL Very High Risk: >gu=853 mg/dL Cholesterol/HDL Ratio 2.5 ratio [facility] Lipid Interpretation See Note [facility] Comment: Lipid management should be guided by a patient? s ASCVD risk, goals and preferences. ACC/AHA Guidelines recommend high intensity statin if clinical ASCVD or LDL greater than or equal to 190 mg/dL. http://Ketchupppurl.com/QRG-GJA-Rsnlvojnr Adults aged 40-75 with LDL 70-189 mg/dL should have their 10 year ASCVD risk estimated with the ACC/AHA ASCVD risk transit planner http://tools.acc.org/RIJQP-Toqe-Bxcqjfojs/ Statin should be discussed if risk greater than or equal to 7.5% in non-diabetics. With diabetes, moderate intensity statin is recommended if risk less than 7.5%, high intensity if risk greater than or equal to 7.5%. Annual lipid monitoring on statins is not necessary. Evaluate secondary causes of Triglycerides greater than 500 mg/dL or LDL greater than 190 mg/dL: See table 6 of ACC/AHA Guideline. Lifestyle modification is a critical component of ASCVD risk reduction. Blood specimen (specimen) 09/11/2019 2:21 PM EST 09/11/2019 4:24 PM EST Narrative Resulting Agency Comment Spec In Lab Martin Tim MD CHEMISTRY ORDERABLES [facility] [place] [address] * XR Shoulder Bilat (Generic) (09/11/2019 12:07 PM EST) Anatomical Region Laterality Modality Shoulder Bilateral Digital Radiogra phy Impressions 09/11/2019 4:57 PM EST Mild bilateral glenohumeral osteoarthropathy. I have personally reviewed the image(s) and the resident's interpretation and agree with the findings, Perri Cervantes at 09/11/2019 4:57 PM Thank you for letting us participate in the care of this patient. For questions regarding this report, please contact the number below. ? Electronically signed by: Perri Cervantes [facility] ([phone]), at 09/11/2019 4:57 PM Narrative 09/11/2019 4:57 PM EST EXAMINATION: XR SHOULDER BILAT (GENERIC) CLINICAL HISTORY: inflammatory arthopathy with pain in the bilateral shoulder TECHNIQUE: 4 views BILATERAL shoulders COMPARISON: None FINDINGS: Right shoulder: No fracture or dislocation. Mild glenohumeral osteoarthropathy, characterized by subchondral sclerosis and marginal osteophytes. The acromioclavicular joint is normal. Left shoulder: No fracture or dislocation. Mild glenohumeral joint osteoarthropathy, characterized by subchondral sclerosis and small osteophytes. The acromial clavicular joint has normal alignment. The acromium has a slight lateral downward slope. Intact median sternotomy wires are incompletely imaged. The visualized portions of the lungs are clear. No periarticular calcifications. Procedure Note Perri Cervantes MD - 09/11/2019 EXAMINATION: XR SHOULDER BILAT (GENERIC) CLINICAL HISTORY: inflammatory arthopathy with pain in the bilateralshoulder TECHNIQUE: 4 views BILATERAL shoulders COMPARISON: None FINDINGS: Right shoulder: No fracture or dislocation. Mild glenohumeral osteoarthropathy,characterized by subchondral sclerosis and marginal osteophytes. The acromioclavicularjoint is normal. Left shoulder: No fracture or dislocation. Mild glenohumeral joint osteoarthropathy, characterized by subchondral sclerosis and small osteophytes. Theacromial clavicular joint has normal alignment. The acromium has a slight lateral downward slope. Intact median sternotomy wires are incompletely imaged. The visualizedportions of the lungs are clear. No periarticular calcifications. IMPRESSION Mild bilateral glenohumeral osteoarthropathy. I have personally reviewed the image(s) and the resident's interpretationand agree with the findings, Perri Cervantes at 09/11/2019 4:57 PM Thank you for letting us participate in the care of this patient. Forquestions regarding this report, please contact the number below. Electronically signed by: Perri Cervantes [facility]([phone]), at 09/11/2019 4:57 PM Martin Tim MD IMG DX ORDERABLES * XR Foot Min 3 views Bilat (Generic) (09/11/2019 12:07 PM EST) Anatomical Region Laterality Modality Foot Bilateral Digital Radiogra phy Impressions 09/11/2019 2:25 PM EST 1. Erosion at the DIP joint of the right second toe consistent with psoriatic arthritis or gout. 2. Osteoarthritis left first MTP joint. Thank you for letting us participate in the care of this patient. For questions regarding this report, please contact the number below. ? Electronically signed by: Cooper Nolasco [facility] ([phone]), at 09/11/2019 2:25 PM Narrative 09/11/2019 2:25 PM EST EXAMINATION: XR FOOT MIN 3 VIEWS BILAT (GENERIC) CLINICAL HISTORY: lazaro foot pain with hx of PSA TECHNIQUE: 3 views BILATERAL feet COMPARISON: None FINDINGS: Right foot: There is joint space narrowing with a a small erosive lesion at the lateral margin of the DIP joint of the second toe. This appearance could be consistent with psoriatic arthritis or perhaps gout. There is a small calcaneal enthesophyte at the insertion of the Achilles tendon. No other abnormality seen. Left foot: There is osteoarthritis at the first MTP joint. There are calcaneal enthesophytes at the insertions of the Achilles tendon and plantar fascia. Procedure Note Cooper Nolsaco MD - 09/11/2019 EXAMINATION: XR FOOT MIN 3 VIEWS BILAT (GENERIC) CLINICAL HISTORY: lazaro foot pain with hx of PSA TECHNIQUE: 3 views BILATERAL feet COMPARISON: None FINDINGS: Right foot: There is joint space narrowing with a a small erosive lesionat the lateral margin of the DIP joint of the second toe. This appearance couldbe consistent with psoriatic arthritis or perhaps gout. There is a smallcalcaneal enthesophyte at the insertion of the Achilles tendon. No other abnormalityseen. Left foot: There is osteoarthritis at the first MTP joint. There arecalcaneal enthesophytes at the insertions of the Achilles tendon and plantarfascia. IMPRESSION 1. Erosion at the DIP joint of the right second toe consistent withpsoriatic arthritis or gout. 2. Osteoarthritis left first MTP joint. Thank you for letting us participate in the care of this patient. Forquestions regarding this report, please contact the number below. Martin Tim MD IMG DX ORDERABLES documented in this encounter Visit Diagnoses Diagnosis Psoriatic arthritis Psoriatic arthropathy Severe obesity due to excess calories with serious comorbidity and body mass index (BMI) in 99th percentile for age in pediatric patient Chronic pain of both shoulders Pain in joint, shoulder region Bilateral hip pain Pain in joint, pelvic region and thigh Pain in both feet Pain in limb High risk medication use Encounter for long-term (current) use of other medications Inflammatory arthropathy Arthropathy, unspecified, site unspecified Primary osteoarthritis of both knees Primary localized osteoarthrosis, lower leg Psoriasis Other psoriasis Psoriatic arthritis Psoriatic arthropathy Pain in both feet Pain in limb Chronic pain of both shoulders Pain in joint, shoulder region documented in this encounter Care Teams Scouring Pads Supervisor Relationship Specialty Start Date End Date Carlos Hernandez DO [address] [place] [address] PCP - General 08/16/10 02/25/23 documented as of this encounter
--- OUTSIDE RECORDS SUMMARY | 2024-09-23 14:20 | XMS_ITS | Encounter Summary ---
Author Organization [facility] Address [facility] [place] [address] Care Team Providers Care Cake Decorator Name Role Phone Doug Valderrama MD Primary Care Provider [phone] Reason for Visit * Consultation (Priority 2) - Closed Specialty Diagnoses / Procedures Referred By Guanaco marie Referred To Contact Dermatology Diagnoses Rash Doug Valderrama MD [address] [place] [address] [facility] Dermatology [address] [place] [address] Referral ID Status Reason Start Date Expiration Date V isits Requested Visits Authorized [id number] Closed Consult, Test & Treat PCP Updated and/or Approved 04/23/2023 04/22/2024 6 6 Encounter Details Date Type Department Care Team (Late st Contact Info) Description 05/24/2023 9:30 AM EDT Office Visit Dermatology at [address] [place] [address] Joyce Snyder MD [facility] [place] [address] Atopic dermatitis, unspecified type; Stasis dermatitis of both legs; Solar purpura Social History Tobacco Use Types Packs/Day Years [...] Progress Notes * Joyce Snyder MD - 05/24/2023 9:30 AM EDT Images from the original [...] sulfasalazine, leflunomide, Enbrel, Stelara, Cosentyx, Skyrizi) via child development professor until about 2 years ago Family History Details Melanoma N NMSC N Other relevant family history N Social History Occupation: Retired Hobbies: Other: Pre-Procedure Screening Details Allergy to lidocaine, epinephrine, Dermabond, chlorhexidine, or adhesives N Bleeding disorder or blood thinners Torsemide 60mg Pacemaker, defibrillator, deep brain stimulator, cochlear implant Pacemaker, December 2022 History of Present Illness: Raghu Rosenthal is a 77 y.o. Patient is referred to the clinic at the request of Doug Valderrama for a rash: - years long hx of skin itching and rash. Multiple prior bxs, grand rounds discussion. Diagnosed aspsoriasis and as eczema at different times in the past; bxs c/w subacute/chronic eczema. Treated with topical steroids most recently, was seeing his PCP and an outside derm most recently and another biopsy has since been performed c/w atopic dermatitis. - He has been given oral gabapentin, multiple prednisone courses, and triamcinolone ointment which has helped with itch sensation. Also trialed oral Doxepin 25mg without much relief. Increased to 50mg but still experienced no improvement. Has tried antihistamines (Benadryl) in the past without relief. - Patient had a heart attack in December of this year and has since been experiencing increasing itch sensation on the trunk and extremities. He was advised to d/c Repatha injections in which he did so shortly after coming out of the hospital from his heart attack. - Denies hx of childhood eczema. - Reported hx of psoriasis, was on Cosentyx Review of Systems: General: Feeling well. Skin: No other skin concerns. Medications: Reviewed in eD-H Allergies: Reviewed in eD-H Skin Examination: Skin examination: face, ears, neck, chest, axillae, abdomen, back, and upper and lower extremities. Results: 02/19/20 [id number] DIAGNOSIS Skin, left flank, punch biopsy: - Acanthosis with mild spongiosis and slight superficial perivascular lymphocytic infiltrate (see discussion) DISCUSSION Focal parakeratosis overlying orthokeratosis is seen. No fungi are seen in PAS- reacted sections. Confluent parakeratosis or diminution of the granular layer are not seen to suggest psoriasis. Atypical lymphocytic infiltrate is not seen to suggest cutaneous T-cell lymphoma. While the findings in the biopsy are not very specific, s ome features could be compatible with a resolved chronic spongiotic /eczematous dermatitis. Clinicopathologic correlation is recommended. 02/15/21 [id number] DIAGNOSIS Abdomen, skin punch biopsy: - Acanthosis with superficial lymphocytic infiltrate and foci of lymphocyte exocytosis (see discussion) DISCUSSION Sections show epidermal acanthosis with parakeratosis. Within the superficial dermis, there is a perivascular lymphocytic infiltrate with foci of lymphocyte exocytosis. There is mild spongiosis and few intraepidermal Langerhans cells. T cells are highlighted by CD3 with mixed expression of CD4 and CD8. CD2 and CD5 are retained. There is partial loss of CD7. PAS/F is negative for fungal organisms. Overall, the findings in this sample are insufficient to warrant a diagnosis of cutaneous T-cell lymphoma. While a chronic or subacute eczematous process could be considered, lymphoproliferative processes early in their evolution can sometimes mimic common inflammatory phenomena; therefore, repeat sampling and comparative clonality studies could be considered if the lesions appear heterogeneous or there is sustained clinical consideration for an evolving lymphoproliferative process. 05/16 Atopic dermatitis per outside letter - pathology report not available at the time of visit Assessment/Plan # Dermatitis - Bolt thin scaly plaques on trunks & less so on the extremities. - Skin findings, prior biopsy reports, outside biopsy letter, prior office notes, and history all reviewed. - Of note, he has a reported [...] most recently in April 2023 Plan: - Request outside bx report; consider requesting slides - Continue washing with Dove Soap. Strongly encourage applying bland emollient or moisturizer. (Cetaphil or CeraVe cream) to all areas of clear skin immediately after bathing. Sensitive skin care handout given - Can continue Rx: gabapentin 300mg BID as needed as previously prescribed [...] Sensitive as options for itch relief PRN - consider additional treatments (briefly discussed dupilumab) pending records review and course # Stasis Dermatitis - Pitting edema with diffuse eczematous erythema of the bilateral lower extremities. No increased warmth, tenderness, or other signs of infection. - Recommended wearing compression socks. - Recommended applying a bland moisturizer (such as CeraVe cream) daily immediately after bathing. # Solar purpura - Violaceous macules on the bilateral forearms. - Discussed that this is benign and caused by bruising that develops as the skin thins due to age and sun damage. - No treatment necessary. Figure 1 Photo(s) taken and charted with patient's verbal consent. Other: N/A RTC: 3 months for f/u of the above []Note routed to private secretary []Recall placed in scheduling system []Appointment scheduled at checkout Scribe attestation: WILBER Kenney has performed the documentation for this encounter in thepresence of and acting as a scribe for Joyce Snyder MD. I performed the above scribed service and agree with the accuracy of the documentation in this encounter. Reviewed and signed by: Joyce Snyder MD Dermatology [facility] documented in this encounter Plan of Treatment Upcoming Encounters Date Type Department Care Team (Late st Contact Info) Description 12/18/2024 2:00 PM EDT Office Visit Dermatology at [address] [address] Joyce Snyder MD [facility] [address] documented as of this encounter Goals Goal Patient Goal Type Associated Problems Recent Progress Patient-Stated? Author [facility] Home Medication Compliance and Understanding Patient Facing Action Plan On track( 018 9:29 AM EST) Jono [place], [facility] Note: Patient's specific desired goal: Reduction in psoriasis patches and psoriatic arthritis pain / symptoms. Measured by: pain scale, joints affected, BSA affected by psoriasis Time-frame to meet goal: ongoing - mostly effective at this time documented as of this encounter Visit Diagnoses Diagnosis Atopic dermatitis, unspecified type Stasis dermatitis of both legs Varicose veins of lower extremities with inflammation Solar purpura Other nonthrombocytopenic purpuras documented in this encounter Care Teams Cake Decorator Relationship Specialty Start Date End Date Doug Valderrama MD [address] [place] [address] PCP - General Family Medicine 02/26/23 documented as of this encounter
--- OUTSIDE RECORDS SUMMARY | 2024-09-23 14:20 | XMS_ITS | Encounter Summary ---
Author Organization [facility] Address [facility] [address] [place] [address] Care Team Providers Care Motor Route Carrier Name Role Phone Carlos Hernandez DO Primary Care Provider Encounter Details Date Type Department Care Team (Late st Contact Info) Description 09/10/2019 Specialty Pharmacy [place] [address] Adán Zhao Social History Tobacco Use Types Packs/Day Years [...] PM EDT Office Visit Dermatology at [facility] [address] [place] [address] Joyce Snyder MD [facility] [place] [address] documented as of this encounter Goals Goal Patient Goal Type Associated Problems Recent Progress Patient-Stated? Author [facility] Medication Compliance and Understanding Patient Facing Action Plan On track( 018 9:29 AM EST) Jono Madrid, [facility] Note: Patient's specific desired goal: Reduction in psoriasis patches and psoriatic arthritis pain / symptoms. Measured by: pain scale, joints affected, BSA affected by psoriasis Time-frame to meet goal: ongoing - mostly effective at this time documented as of this encounter Visit Diagnoses Not on filedocumented in this encounter Care Teams Motor Route Carrier Relationship Specialty Start Date End Date Carlos Hernandez DO [address] [place] [address] PCP - General 08/16/10 02/25/23 documented as of this encounter
--- OUTSIDE RECORDS SUMMARY | 2024-09-23 14:20 | XMS_ITS | Encounter Summary ---
Author Organization [facility] [facility] [place] [address] Care Team Providers Care Supervisor Net Making Name Role Phone Carlos Hernandez DO Primary Care Provider [phone] Encounter Details Date Type Department Care Team (Late st Contact Info) Description 02/19/2020 Specialty [place] [address] Tere Bui, PROTECTION CONSULTANT Social History Tobacco Use Types Packs/Day Years [...] 2:00 PM EDT [facility] [address] [place] [address] Joyce Snyder MD [facility] [place] [address] documented as of this encounter Goals Goal Patient Goal Type Associated Problems Recent Progress Patient-Stated? Author [facility] Medication Compliance and Understanding Patient Facing Action Plan On track( 018 9:29 AM EST) Jono [place], [facility] Note: Patient's specific desired goal: Reduction in psoriasis patches and psoriatic arthritis pain / symptoms. Measured by: pain scale, joints affected, BSA affected by psoriasis Time-frame to meet goal: ongoing - mostly effective at this time documented as of this encounter Visit Diagnoses Not on filedocumented in this encounter Care Teams Supervisor Net Making Relationship Specialty Start Date End Date Carlos Hernandez DO [address] [place] [address] PCP - General 08/16/10 02/25/23 documented as of this encounter
--- OUTSIDE RECORDS SUMMARY | 2024-09-23 14:20 | XMS_ITS | Encounter Summary ---
Author Organization [facility] Address [facility] [place] [address] Care Team Providers Care Diamond Wheel Edger Name Role Phone Carlos Hernandez DO Primary Care Provider Encounter Details Date Type Department Care Team (Latest Contact Info) Description 09/11/2019 11:36 AM EST - 09/11/2019 11:59 PM [facility] Hospital Encounter XRay at [address] [place] [address] Martin Tim MD [facility] [address] Psoriatic arthritis; Pain in both feet; Chronic pain of both shoulders Discharge Disposition: Home Social History Tobacco Use [...] Sig Dispensed Refills Start Date End Date betamethasone dipropionate (DIPROLENE) 0.05 % Cream Apply to the affected areas on the back and flanks twice daily, as needed. 45 g 1 09/11/2019 betamethasone dipropionate (DIPROLENE) 0.05 % Lotion Apply to the affected areas on the scalp every other day. [place]-smoothe oil for more severe flares on the [...] mg by mouth 2 times daily. triamcinolone (KENALOG) 0.1 % Ointment Twice daily to psoriasis plaques on trunk/extremities for 1 week on, 1 week off as needed 454 g 09/11/2019 10/11/2020 secukinumab (COSENTYX, 2 SYRINGES,) 150 mg/mL SyringeIndications:Pso riasis Inject 300 mg subcutaneously every 28 days. 6 Syringe 3 02/05/2019 01/09/2020 mometasone (NASONEX) 50 mcg/actuation Dix, Non-AerosolIndications :as needed 1 spray by Each Nare route as needed. Indications: as needed 09/27/2020 tiotropium (SPIRIVA WITH HANDIHALER) 18 mcg Capsule, w/Inhalation Device Inhale 18 mcg into the lungs daily as needed. 09/27/2020 documented as of this encounter Plan of Treatment Upcoming Encounters Date Type Department Care Team (Late st Contact Info) Description 12/18/2024 2:00 PM EDT Office Visit Dermatology at [facility] [address] [place] [address] Joyce Snyder MD [facility] [place] [address] documented as of this encounter Goals Goal [...] Procedure Name Priority Date/Time Associated Diagnosis Comments XR SHOULDER BILAT Routine 09/11/2019 12: 07 PM EST Psoriatic arthritis Chronic pain of both shoulders XR FOOT MIN 3 VIEWS BILAT Routine 09/11/2019 12:07 PM EST Psoriatic arthritis Pain in both feet documented in this encounter Results * XR Shoulder Bilat (Generic) (09/11/2019 12:07 [...] below. ? Electronically signed by: Perri Cervantes [facility] ([phone]), at 09/11/2019 4:57 PM Narrative 09/11/2019 4:57 [...] below. Martin Tim MD IMG DX ORDERABLES * [...] report, please contact the number below. ? Narrative 09/11/2019 2:25 PM EST EXAMINATION: XR [...] tendon and plantar fascia. Procedure Note Cooper Nolasco MD - 09/11/2019 EXAMINATION: XR FOOT MIN [...] Visit Diagnoses Diagnosis Psoriatic arthritis Psoriatic arthropathy Pain in both feet Pain in limb Chronic pain of both shoulders Pain in joint, shoulder region documented in this encounter Care Teams Diamond Wheel Edger Relationship Specialty Start Date End Date Carlos Hernandez DO [address] [place] [address] PCP - General 08/16/10 02/25/23 documented as of this encounter
--- OUTSIDE RECORDS SUMMARY | 2024-09-23 14:20 | XMS_ITS | Encounter Summary ---
Author Organization [facility] [place] [address] Care Team Providers Care Compound Machine Operator Name Role Phone Carlos Hernandez DO Primary Care Provider Reason for Referral * Diagnostic Test (Routine) - Closed Specialty Diagnoses / Procedures Referred By Contac t Referred To Contact Cardiology Diagnoses Streptococcal bacteremia Coronary artery disease, unspecified vessel or lesion type, unspecified whether angina present, unspecified whether [place] or transplanted heart S/P AVR Procedures Mobile Kaz Barahona MD [address] [place] [id number] [facility] [place] [address] Referral ID Status Reason Start Date Expiration Date V isits Requested Visits Authorized [id number] Closed Specialty Service Requested 02/22/2022 02/22/2023 1 1 Reason for Visit * Diagnostic Test (Routine) - Closed Specialty Diagnoses / Procedures Referred By Contac t Referred To Contact Cardiology Diagnoses Streptococcal bacteremia Coronary artery disease, unspecified vessel or lesion type, unspecified whether angina present, unspecified whether [place] or transplanted heart S/P AVR Procedures Mobile Kaz Barahona MD [address] [place] [address] [facility] [place] [address] Referral ID Status Reason Start Date Expiration Date V isits Requested Visits Authorized [id number] Closed Specialty Service Requested 02/22/2022 02/22/2023 1 1 Encounter Details Date Type Department Care Team (Latest Contact Info) Description 02/22/2022 1:49 PM EDT - 02/22/2022 11:59 PM EDT Hospital Encounter Mobile [place] [address] Kaz Guido MD [address] [place], [place] [id number] Streptococcal bacteremia; Coronary artery disease, unspecified vessel or lesion type, unspecified whether angina present, unspecified whether [place] or transplanted heart; S/P AVR Discharge Disposition: Home Social History Tobacco Use [...] Sig Dispensed Refills Start Date End Date omeprazole (PriLOSEC) 20 mg Capsule, Delayed Release(E.C.) [...] areas on the scalp every other day. [place]-smoothe oil for more severe flares on the [...] 2 times daily. triamcinolone (KENALOG) 0.1 % Cream Apply topically to rash 1-2 times daily as needed 454 g 2 10/11/2020 05/24/2023 secukinumab (Cosentyx, 2 Syringes,) 150 mg/mL SyringeIndications:Ps [...] 2:00 PM EDT [facility] [address] [facility] [place] [address] Joyce Snyder MD [facility] [place] [address] documented as of this encounter Goals Goal [...] Procedure Name Priority Date/Time Associated Diagnosis Comments ECHO COMPLETE Routine 02/22/2022 2:06 PM EDT Streptococcal bacteremia Coronary artery disease, unspecified vessel or lesion type, unspecified whether angina present, unspecified whether [place] or transplanted heart S/P AVR documented in this encounter Results * ECHO COMPLETE (02/22/2022 2:06 PM EDT) EF 65 HEARTLAB SYSTEM Anatomical Region Laterality Modality Other 02/22/2022 11:3 8 AM EDT Narrative 02/22/2022 3:09 PM EDT ?[facility] ?[address] ? [place] [address] ?Voice: ?Fax: ? Echocardiogram Report Name: IRVING ROSENTHAL ?Study Date: 02/22/2022 11:38 AMBP: 142/63 mmHg ? Patient Location: 4A : 1945 ? Height: 173 cm ? Account: [id number] Age: 76 yrs ? Weight: 128 kg Gender: Male ?BSA: 2.4 m2 Ordering Physician: KAZ GUIDO Referring Physician: KAZ GUIDO Performed By: CHINA Reason For Study: Streptococcal bactermia, CAD, AVR Exam Location: [facility]. Interpretation Summary 1. The left ventricle is [...] See remainder of report for complete findings. Procedure Complete-[id number]. Satisfactory quality. Left Ventricle Left ventricle is mildly dilated. Wall thickness is normal. There is no ventricular septal defect. Left ventricular systolic function is normal. Left ventricular ejection fraction is estimated visually at 60-65%. Right Ventricle The right ventricle is of normal size. Right ventricular systolic function is normal. Left Atrium The left atrium is borderline dilated. There is no evidence for a patent foramen ovale. Right Atrium The right atrium is normal. Aortic Valve The date or year of insertion is 09/02/2013. There is a 25mm bovine bioprosthetic valve. The peak gradient across the prosthesis is 48 mmHg. The mean gradient across the prosthesis is 26 mmHg. There appears to be no intravalvular regurgitation. Mitral Valve Mild calcification of the mitral annulus. There is no mitral stenosis. There is mild mitral regurgitation. Tricuspid Valve The tricuspid valve is structurally normal. There is no tricuspid stenosis. There is trace tricuspid regurgitation. Pulmonic Valve The pulmonic valve appears to be structurally normal. There is no valvular pulmonic stenosis. There is mild pulmonic valve regurgitation. Great Arteries The aortic root is of normal size. No abnormalities are identified. Ascending aorta is normal in size. Venous Inferior vena cava is normal in size. Inferior vena cava collapse greater than 50% with respiration. Pericardium/Pleural There is no pericardial effusion. Hemodynamics The peak right ventricular systolic pressure is 28 mmHg. The estimated right atrial pressure is 3mmHg. Ejection Fraction ?2D Measurements ? Volumes LV Biplane EF: 63.5 % ? IVSd: 1.1 cm ? EDV Biplane: 162.6 ml ?LVPWd: 1.1 cm ?EDV Biplane Index: 68.7 ? ESV Biplane: 59.3 ml ? ESV Biplane Index: 25.1 Doppler TR max bee: 251.0 cm/sec RVSP(TR): 28.2 mmHg Ao V2 VTI: 78.8 cm Ao valve max: 48.3 mmHg MV E max bee: 152.3 cm/sec MV A max bee: 138.5 cm/sec MV E/A: 1.1 Dimensionless index Aov: 0.38 I ?WMSI = 1.00 ? % Normal = 100 ?No LV segmental ?wall motion ?abnormalities. ?Segments ??Size X - Cannot ?2 - ?4 - ?1-2 ? small Interpret ?1 - Normal ?? Hypokinetic 3 - Akinetic Dyskinetic ?? 3-5 ? moderate 5 - ? 6-14 ?large Aneurysmal ?15-16 ?? diffuse Procedure Note Maria Guadalupe Santiago MD - 02/22/2022 [place] [address] Voice: Fax: Echocardiogram Report Name: IRVING ROSENTHAL Study Date:02/22/2022 11:38 AMBP: 142/63 mmHg Patient Location: : 1945 Height: 173 cm Account: [id number] Age: 76 yrs Weight: 128 kg Gender: Male BSA: 2.4 m2 Ordering Physician: KAZ GUIDO Referring Physician: KAZ GUIDO Performed By: CHINA Reason For Study: Streptococcal bactermia, CAD, AVR Exam Location: [facility]. Interpretation Summary 1. The left ventricle is mildly dilated by LVEDV of 160mL. Global andsegmental systolic function is normal with a visually estimated LVEF of 65%. 2. The right ventricle is normal in size and global systolic function. 3. There is a bioprosthetic aortic valve present, known to be a 25mmpericardial tissue valve implanted on 09/02/2013. It appears well seated with noapparent regurgitation. Prosthetic valve gradients are elevated with mTVG of 26mmHg and pTVG 48 mmHg. The DVI is 0.38. 4. No vegetations are seen on the valves. Consider ODILIA if clinicallyindicated. 5. When compared to the prior study dated 03/07/2018, the aortic prostheticvalve gradients have increased. See remainder of report for complete findings. Procedure Complete-[id number]. Satisfactory quality. Left Ventricle Left ventricle is mildly dilated. Wall thickness is normal. There is no ventricular septal defect. Left ventricular systolic function is normal.Left ventricular ejection fraction is estimated visually at 60-65%. Right Ventricle The right ventricle is of normal size. Right ventricular systolic functionis normal. Left Atrium The left atrium is borderline dilated. There is no evidence for a patentforamen ovale. Right Atrium The right atrium is normal. Aortic Valve The date or year of insertion is 09/02/2013. There is a 25mm bovinebioprosthetic valve. The peak gradient across the prosthesis is 48 mmHg. The meangradient across the prosthesis is 26 mmHg. There appears to be no intravalvular regurgitation. Mitral Valve Mild calcification of the mitral annulus. There is no mitral stenosis.There is mild mitral regurgitation. Tricuspid Valve The tricuspid valve is structurally normal. There is no tricuspidstenosis. There is trace tricuspid regurgitation. Pulmonic Valve The pulmonic valve appears to be structurally normal. There is novalvular pulmonic stenosis. There is mild pulmonic valve regurgitation. Great Arteries The aortic root is of normal size. No abnormalities are identified.Ascending aorta is normal in size. Venous Inferior vena cava is normal in size. Inferior vena cava collapse greaterthan 50% with respiration. Pericardium/Pleural There is no pericardial effusion. Hemodynamics The peak right ventricular systolic pressure is 28 mmHg. The estimatedright atrial pressure is 3mmHg. Ejection Fraction 2D Measurements Volumes LV Biplane EF: 63.5 % IVSd: 1.1 cm EDV Biplane:162.6 ml LVPWd: 1.1 cm EDV BiplaneIndex: 68.7 ESV Biplane: 59.3ml ESV BiplaneIndex: 25.1 Doppler TR max bee: 251.0 cm/sec RVSP(TR): 28.2 mmHg Ao V2 VTI: 78.8 cm Ao valve max: 48.3 mmHg MV E max bee: 152.3 cm/sec MV A max bee: 138.5 cm/sec MV E/A: 1.1 Dimensionless index Aov: 0.38 I WMSI = 1.00 % Normal = 100 No LVsegmental wallmotion abnormalities. SegmentsSize X - Cannot 2 - 4 - 1-2small Interpret 1 - Normal Hypokinetic 3 - Akinetic Dyskinetic 3-5moderate 5 - 6-14large Aneurysmal 15-16diffuse Kaz Guido MD ECHO ORDERABLES documented in this encounter Visit Diagnoses Diagnosis Streptococcal bacteremia Bacteremia Coronary artery disease, unspecified vessel or lesion type, unspecified whether angina present, unspecified whether [place] or transplanted heart S/P AVR Heart valve replaced by other means documented in this encounter Care Teams Compound Machine Operator Relationship Specialty Start Date End Date Carlos Hernandez DO [address] [place] [address] [address] [facility] [address] [place] [address] PCP - General 08/16/10 02/25/23 documented as of this encounter
--- OUTSIDE RECORDS SUMMARY | 2024-09-23 14:20 | XMS_ITS | Encounter Summary ---
[place] [address] Care Team Providers Care Service Specialist Name Role Phone Carlos Hernandez DO Primary Care Provider Reason for Visit * Reason Comments Specialty Pharmacy Review Encounter Details Date Type Department Care Team (Late st Contact Info) Description 10/11/2020 Specialty [place] [phone] Leyla Velasquez Social History Tobacco Use Types Packs/Day Years [...] as of this encounter Progress Notes * Leyla Velasquez - 10/11/2020 11:59 PM EST [facility] has completed a benefits investigation for Raghu Rosenthal to review their eligibility to fill at [facility]. Per patient's medication list they are prescribed SECUKINUMAB 150 MG/ML and the medication is able to be filled at the [facility]. documented in this encounter Plan of Treatment Upcoming Encounters Date Type Department Care Team (Late st Contact Info) Description 12/18/2024 2:00 PM EDT Office Visit Dermatology at [address] [place] [address] Joyce Snyder MD [facility] [place] [place] [address] documented as of this encounter Goals Goal Patient Goal Type Associated Problems Recent Progress Patient-Stated? Author DH Home Medication Compliance and Understanding Patient Facing Action Plan On track( 018 9:29 AM EST) No Jono Reed, [facility] Note: Patient's specific desired goal: Reduction in psoriasis patches and psoriatic arthritis pain / symptoms. Measured by: pain scale, joints affected, BSA affected by psoriasis Time-frame to meet goal: ongoing - mostly effective at this time documented as of this encounter Visit Diagnoses Not on filedocumented in this encounter Care Teams Service Specialist Relationship Specialty Start Date End Date Carlos Hernandez DO [address] [place] [address] PCP - General 08/16/10 02/25/23 documented as of this encounter
--- OUTSIDE RECORDS SUMMARY | 2024-09-23 14:20 | XMS_ITS | Encounter Summary ---
[place] [address] Care Team Providers Care Professor Of Environmental Science Name Role Phone Carlos Hernandez DO Primary Care Provider [phone] Reason for Visit * Reason Comments Specialty Pharmacy Review Encounter Details Date Type Department Care Team (Late st Contact Info) Description 12/16/2020 Specialty [place] [phone] Leyla Velasquez Social History Tobacco Use Types [...] encounter Progress Notes * Leyla Velasquez - 12/16/2020 11:59 PM EDT The [facility] has completed a benefits investigation for Raghu Welch to review their eligibility to fill at [facility]. Per patient's medication list they are prescribed SECUKINUMAB 150 MG/ML and the medication is currently filled at the [facility]. documented in this encounter Plan of Treatment Upcoming Encounters Date Type Department Care Team (Late st Contact Info) Description 12/18/2024 2:00 PM EDT Office Visit Dermatology at [address] [place] [address] Joyce Snyder MD [facility] [place] [place] [address] documented as of this encounter Goals Goal Patient Goal Type Associated Problems Recent Progress Patient-Stated? Author DH Home Medication Compliance and Understanding Patient Facing Action Plan On track( 018 9:29 AM EST) Jono Madrid, [facility] Note: Patient's specific desired goal: Reduction in psoriasis patches and psoriatic arthritis pain / symptoms. Measured by: pain scale, joints affected, BSA affected by psoriasis Time-frame to meet goal: ongoing - mostly effective at this time documented as of this encounter Visit Diagnoses Not on filedocumented in this encounter Care Teams Professor Of Environmental Science Relationship Specialty Start Date End Date Carlos Hernandez DO [address] [place] [address] PCP - General 08/16/10 02/25/23 documented as of this encounter
--- OUTSIDE RECORDS SUMMARY | 2024-09-23 14:20 | XMS_ITS | Encounter Summary ---
Author Organization [facility] [place] [address] Care Team Providers Care Photo Mask Inspector Name Role Phone Carlos Hernandez DO Primary Care Provider [phone] Reason for Visit * Reason Comments Medication Management Encounter Details Date Type Department Care Team (Late st Contact Info) Description 06/18/2019 Specialty [place] [phone] Nataly Spann RPH Social History Tobacco Use [...] this encounter Progress Notes * Nataly Spann - 06/18/2019 3:23 PM EDT Clinical Management Plan: Refill Specialty Pharmacy Consultation; Nataly Spann Comprehensive Medication Management (CMM) Raghu Joel Ariadna Mr. Raghu Rosenthal is a 73 y.o. (1945) male who was contacted in regard to a specialty medication refill reminder. Spoke with caregiver. Caregiver name: Shira Hinton. A review ofthe medication therapy was performed. The medication was Refilled as scheduled, and all medication related questions and concerns were addressed. The specialty pharmacy staff will follow up with the p atient 5-7 days prior to next refill. Was a change made to the Care Plan: no If yes, should the medication be held: No Assessment and Recommendations: Title Cognitive Ability: good [...] (compared to [facility] med list) -None New medications: no New medical conditions: no New allergies: no Adherence: Medication Adherence Patient reported X missed doses in the last month: 1 Any gaps in refill history greater than 2 weeks in the last 3 months: no Demonstrates understanding of importance of adherence: yes Informant: mother Reliability of informant: reliable Provider-estimated medication adherence level: 90-100% Reasons for non-adherence: no problems identified Adherence tools used: calendar, directed education Support network for adherence: family member Confirmed plan for next specialty medication refill: delivery by pharmacy Are you experiencing any side effects from your medications? no Pt understands no changes to current drug regimen were made at the appointment and that [facility] is providing recommendations (summary located at top of note) for provider review and follow up. Nataly Spann 06/18/19 3:25 PM * Nataly Spann - 06/18/2019 3:23 PM EDT Error- wrong patient note- disregard documented in this encounter Plan of Treatment Upcoming Encounters Date Type Department Care Team (Late st Contact Info) Description 12/18/2024 2:00 PM EDT Office Visit Dermatology at [facility] [address] [address] [place] [phone] Joyce Snyder MD [facility] [place] [place] [address] documented as of this encounter Goals Goal Patient Goal Type Associated Problems Recent Progress Patient-Stated? Author DH Home Medication Compliance and Understanding Patient Facing Action Plan On track( 018 9:29 AM EST) Jono Madrid, [facility] Note: Patient's specific desired goal: Reduction in psoriasis patches and psoriatic arthritis pain / symptoms. Measured by: pain scale, joints affected, BSA affected by psoriasis Time-frame to meet goal: ongoing - mostly effective at this time documented as of this encounter Visit Diagnoses Not on filedocumented in this encounter Care Teams Photo Mask Inspector Relationship Specialty Start Date End Date Carlos Hernandez DO [address] [place] [address] PCP - General 08/16/10 02/25/23 documented as of this encounter
--- OUTSIDE RECORDS SUMMARY | 2024-09-23 14:20 | XMS_ITS | Encounter Summary ---
Author Organization [place] [address] Care Team Providers Care Balancing Machine Set Up Worker Name Role Phone Carlos Hernandez DO Primary Care Provider [phone] Encounter Details Date Type Department Care Team (Late st Contact Info) Description 10/11/2020 2:00 PM EST TH Visit (TeleHealth) Dermatology at [address] [address] Holli Berrios MD Dermatitis Social History Tobacco Use Types Packs/Day [...] Progress Notes * Holli Berrios MD - 10/11/2020 2:00 PM EST DERMATOLOGY OUTPATIENT CLINIC NOTE - telehealth visit Date of service: 10/11/2020 Raghu Rosenthal : 1945 Provider: Holli Berrios MD PROBLEM: Psoriasis f/u SKIN HISTORY: - Psoriasis -Started on Cosentyx in 2019 -[facility] -Back to Cosentyx in September 2019- present HPI Raghu Rosenthal is a 75 y.o. male. He is here today for a telehealth visit for follow-up of the eczematous rash on his abdomen. He was last seen in January 2020. At that time he had a biopsy which showedeczematous dermatitis. He is on Cosentyx at the time with good improvement of her psoriasis. There was some concern for CTCL but no features were shown. That eczematous dermatitis continues to botherhim on the abdomen with significant itching. He is currently using a topical triamcinolone which does help with the itching but overall still very bothersome to him. He is wondering what else he could do. 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 Family History: Lupus?? ADR: Allergies Allergen [...] areas on the scalp every other day. [place]-smoothe oil for more severe flares on the [...] General: NAD, pleasant, cooperative Skin: Examination of the face and abdomen performed via telehealth Significant skin findings: -On the abdomen there are serpiginous and erythematous plaques ASSESSMENT/PLAN Eczematous dermatitis, previously biopsied -At this time we will hold the Cosentyx dose to see if the eczematous dermatitis improves and this could be a potential side effect. We also asked that he discontinue his omeprazole as this can sometimes cause an eczematous dermatitis. -In the meantime we will continue with triamcinolone 0.1% cream. Refill provided. He can use this as needed. -I recommended he return to the office in 4 to 6 weeks for further evaluation to see if there is any improvement off the Cosentyx and off the omeprazole. If he continues to have the rash we will consider rebiopsy at that time. Patient is in agreement with this plan. -Rx: Triamcinolone 0.1% cream, apply to rash on trunk 1-2 times daily as needed RTC -4 to 6 weeks in person, sooner as needed. Holli Berrios MD Section of Dermatology [facility] documented in this encounter Plan of Treatment Upcoming Encounters Date Type Department Care Team (Late st Contact Info) Description 12/18/2024 2:00 PM EDT Office Visit Dermatology at [address] [place] [address] Joyce Snyder MD [facility] [place] [address] documented as of this encounter Goals Goal Patient Goal Type Associated Problems Recent Progress Patient-Stated? Author DH Home Medication Compliance and Understanding Patient Facing Action Plan On track( 018 9:29 AM EST) No Jono Reed, [facility] Note: Patient's specific desired goal: Reduction in psoriasis patches and psoriatic arthritis pain / symptoms. Measured by: pain scale, joints affected, BSA affected by psoriasis Time-frame to meet goal: ongoing - mostly effective at this time documented as of this encounter Visit Diagnoses Diagnosis Dermatitis Contact dermatitis and other eczema, due to unspecified cause documented in this encounter Care Teams Balancing Machine Set Up Worker Relationship Specialty Start Date End Date Carlos Hernandez DO [address] [place] [address] [address] PCP - General 08/16/10 02/25/23 documented as of this encounter
--- OUTSIDE RECORDS SUMMARY | 2024-09-23 14:20 | XMS_ITS | Encounter Summary ---
Author Organization [facility] [place] [address] Care Team Providers Care Head Doffer Name Role Phone Carlos Hernandez DO Primary Care Provider [phone] Encounter Details Date Type Department Care Team (Late st Contact Info) Description 01/07/2020 Telephone Dermatology at [facility] [address] [place] [address] Holli Berrios MD Social History [...] encounter Miscellaneous Notes * Telephone Encounter - Yanique Alcazar LPN - 01/07/2020 11:19 AM EDT I spoke with Mr. Rosenthal and he said he is having a really bad flare. He is currently in [place] and was told not to return by his PCP until at least the end of December. He mentioned he is doing his injections of Skyrizi. and he feels like they are not working. He wants to go back to [facility] if possible. He states he has cracking and very sore hands including under the nails. He has been using the Triamcinolone and will forward pictures through the [facility] portal. I asked him to forward any other photo's of his skin that is flaring. He is willing to do a telehealth appt. I will send message to Atilio to send info through the portal and call and schedule pt to be seen. * Telephone Encounter - Atilio Ocampo LNA - 01/07/2020 9:39 AM EDT Mr. Rosenthal would like a return call at [phone] he is in [place] right now and his skin is having a flare up And is hoping he can discuss medication options. documented in this encounter Plan of Treatment Upcoming Encounters Date Type Department Care Team (Late st Contact Info) Description 12/18/2024 2:00 PM EDT Office Visit Dermatology at [address] [phone] Joyce Snyder MD [facility] [place] [address] documented as of this encounter Goals Goal Patient Goal Type Associated Problems Recent Progress Patient-Stated? Author DH Home Medication Compliance and Understanding Patient Facing Action Plan On track( 018 9:29 AM EST) Jono Madrid, [facility] Note: Patient's specific desired goal: Reduction in psoriasis patches and psoriatic arthritis pain / symptoms. Measured by: pain scale, joints affected, BSA affected by psoriasis Time-frame to meet goal: ongoing - mostly effective at this time documented as of this encounter Visit Diagnoses Not on filedocumented in this encounter Care Teams Head Doffer Relationship Specialty Start Date End Date Carlos Hernandez DO [address] [place] [address] [address] [place] [address] PCP - General 11/23/10 6/4/23 documented as of this encounter
--- OUTSIDE RECORDS SUMMARY | 2024-09-23 14:21 | XMS_ITS | Encounter Summary ---
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 Raghu Rosenthal is a 71 y.o. (1945) male who was contacted in regard to specialty medication. Spoke with patient regarding COSENTYX. A review of the medication therapy was performed. The medication was Refilled as scheduled, and all medication related questions and concerns were addressed. The specialty pharmacy staff will follow up with the patient 5-7 days prior to next refill. Allergies and Drug intolerance: Allergies Allergen Reactions ??? Vicodin [Hydrocodone-Acetaminophen] Shortness Of Breath Problems breathing ??? Morphine Sulfate Nausea And Vomiting ??? Arava [Leflunomide] Rash RASH ??? Clarithromycin ??? Hydrocodone Bitartrate ??? Indomethacin ??? Lansoprazole ??? Lipitor [Atorvastatin] Joint pain ??? Other [Unclassified Drug] IV dyes ??? Pravastatin Sodium ??? Tetracyclines ??? Venom-Honey Bee Medication Reconciliation Discrepancies (compared to [facility] med list) -none Medication Adherence Patient reported X missed doses in the last month: 0 Any gaps in refill history greater than 2 weeks in the last 3 months: no Demonstrates understanding of importance of adherence: yes Informant: patient Reliability of informant: reliable Provider-estimated medication adherence level: good Reasons for non-adherence: no problems identified Adherence tools used: calendar Support network for adherence: family member Confirmed plan for next specialty medication refill: delivery by pharmacy Refills needed for supportive medications: not needed Are you experiencing any side effects from your medications? no Medication List: Current Outpatient Prescriptions Medication Sig Dispense Refill ??? secukinumab (COSENTYX, 2 SYRINGES,) 150 mg/mL Syringe Inject 300 mg subcutaneously every 28 days. 6 Syringe 3 ??? amLODIPine (NORVASC) 10 mg Tablet TAKE ONE TABLET BY MOUTH EVERY DAY 3 ??? escitalopram (LEXAPRO) 20 mg Tablet Take 20 mg by mouth daily. ??? traZODone (DESYREL) 100 mg Tablet Take 100 mg by mouth nightly. ??? rosuvastatin (CRESTOR) 5 mg Tablet Take 1 tablet by mouth daily. 30 tablet 11 ??? amLODIPine (NORVASC) 5 mg Tablet Take 1 tablet by mouth daily. Take each evening in addition totaking the 10 mg each morning 30 tablet 11 ??? budesonide-formoterol (SYMBICORT) 160-4.5 mcg/actuation HFA Aerosol Inhaler Inhale into the lungs. ??? mometasone (NASONEX) 50 mcg/actuation [place], Non-Aerosol 50 mcg by Nasal route. Indications: asneeded ??? EPINEPHrine (EPIPEN) 0.3 mg/0.3 mL (1:1,000) Auto-Injector Inject 0.3 mg into the muscle once. Reported on 04/20/2017 ??? losartan (COZAAR) 100 mg Tablet Take 100 mg by mouth daily. ??? tiotropium (SPIRIVA WITH HANDIHALER) 18 mcg Capsule, w/Inhalation Device Inhale 18 mcg into thelungs daily. ??? chlorhexidine (PERIDEX) 0.12 % solution as needed. ??? acetaminophen (TYLENOL) 500 mg tablet Take 2 tablets by mouth every 6 hours. 30 tablet ??? amoxicillin (AMOXIL) 500 mg capsule Take 2,000 mg by mouth See Admin Instructions. Takes beforeDental procedure. TAKE 4 TABLETS ONE HOUR BEFORE DENTAL PROCEDURES ??? Magnesium Chloride 64 mg TbEC Take by mouth. ??? aspirin 81 mg chewable tablet Take 81 mg by mouth daily. ??? Fenofibric Acid (TRILIPIX) 135 mg CpDR Take 1 tablet by mouth daily. ??? ranitidine (ZANTAC) 150 mg tablet Take 150 mg by mouth 2 times daily. No current facility-administered medications for this visit. Most Recent Vitals: Ht Readings from Last 1 Encounters: 05/11/17 177.8 cm (5' 10) Wt Readings from Last 3 Encounters: 05/11/17 (!) 145.2 kg (320 lb) 04/20/17 (!) 143.8 kg (317 lb) 04/20/17 (!) 143.8 kg (317 lb) Temp Readings from Last 3 Encounters: 04/20/17 36.5 ??C (97.7 ??F) 10/13/16 36.7 ??C (98 ??F) (Oral) 02/10/16 36.4 ??C (97.6 ??F) (Oral) BP Readings from Last 3 Encounters: 05/11/17 157/64 04/20/17 159/59 04/20/17 159/59 Pulse Readings from Last 3 Encounters: 05/11/17 56 04/20/17 59 04/20/17 59 Pertinent Lab values: Lab Results Component Value Date NA 141 05/11/2017 K 4.2 05/11/2017 CL 104 05/11/2017 CO2 24 05/11/2017 BUN 25 (H) 05/11/2017 CREATININE 1.39 05/11/2017 GLUCOSE 123 05/11/2017 GLUCFASTING 153 (H) 09/03/2013 CALCIUM 9.8 05/11/2017 Lab Results Component Value Date ALT 29 05/11/2017 AST 29 05/11/2017 ALKPHOS 30 (L) 05/11/2017 BILITOT 0.3 05/11/2017 BILIDIR 0.1 02/10/2016 ALBUMIN 4.5 05/11/2017 PROT 7.4 05/11/2017 Lab Results Component Value Date WBC 5.5 05/11/2017 HGB 13.9 05/11/2017 HCT 42.1 05/11/2017 MCV 87.3 05/11/2017 PLATELET 157 05/11/2017 No results found for: HA1C Immunization History Administered Date(s) Administered ??? Diphtheria,pertussis,tetanus 10/03/2011 ??? Influenza Vaccine w/Preservative, Split 07/17/2012, 06/30/2014, 07/13/2015 ??? Influenza Vaccine, Whole 07/14/2005, 08/10/2006, 07/16/2008 ??? Pneumococcal Polyvalent 23 09/19/2006, 10/03/2011 ??? Td, adult 09/24/1994, 05/01/2006 ??? Zoster Vaccine, Live 11/10/2012 Assessment and Recommendations: General Medication Management Type of medication management: chronic disease management, targeted medication review Referred by: provider Recipient: beneficiary Provider: plan sponsor pharmacist Visit type: follow-up Method of contact: by telephone Cognitive ability: good Patient Counseling Counseled the patient on the following: doses and administration discussed, safe handling, storage, and disposal discussed, possible adverse effects and management discussed, possible drug and prescription drug interactions discussed, possible drug and OTC drug and food interactions discussed, therapeutic rationale discussed, cost of medications and cost implications discussed, adherence and missed doses discussed, pharmacy contact information discussed Drug Medication Management Summary Topics discussed: doses and administration discussed, safe handling, storage, and disposal discussed, possible adverse effects and management discussed, possible drug and prescription drug interactions discussed, possible drug and OTC drug and food interactions discussed, therapeutic rationale discussed, cost of medications and cost implications discussed, adherence and missed doses discussed, pharmacy contact information discussed Reviewed in detail with patient: Dose appropriateness based on recommended standard dosing Current medication list including OTC medications Medication and disease problems Allergies Comorbid conditions Past adverse events if any Special needs of the patient including physical and cognitive limitations Goals of therapy and management strategies Warnings, precautions, and contraindications Side effects Drug-drug and drug-food interactions Administration instructions Handling, storage, and disposal of the medication Relevant lab data Educational information or adherence tools provided? yes - medication guide and consultation given F/u needed? yes - will follow up with next refill Received welcome packet: Yes Informed patient of specialty pharmacy services: yes Recommendations: None at this time-- Patient reports psoriasis (affected areas: knees, toes, buttocks) and psoriaticarthritis (affected areas: ankles and wrists) improving. Pt understands no changes to current drug regimen were made at the appointment and that [facility] is providing recommendations (summary located at top of note) for provider review and follow up. Geena Guzmán RPH 05/16/17 5:58 PM documented in this encounter Plan of Treatment Upcoming Encounters Date Type Department Care Team (Late st Contact Info) Description 12/18/2024 2:00 PM EDT Office Visit Dermatology at [address] [phone] Joyce Snyder MD [facility] [place] [address] documented as of this encounter Goals Goal Patient Goal Type Associated Problems Recent Progress Patient-Stated? Author DH Home Medication Compliance and Understanding Patient Facing Action Plan On track( 018 9:29 AM EST) Jono Madrid, [facility] Note: Patient's specific desired goal: Reduction in psoriasis patches and psoriatic arthritis pain / symptoms. Measured by: pain scale, joints affected, BSA affected by psoriasis Time-frame to meet goal: ongoing - mostly effective at this time documented as of this encounter Visit Diagnoses Not on filedocumented in this encounter Care Teams Chucking And Sawing Machine Operator Relationship Specialty Start Date End Date Carlos Hernandez DO [address] [place] [address] [address] [facility] [address] [place] [address] PCP - General 08/16/10 02/25/23 documented as of this encounter
--- OUTSIDE RECORDS SUMMARY | 2024-09-23 14:21 | XMS_ITS | Encounter Summary ---
Author Organization [facility] [place] [address] Care Team Providers Care Wax Pourer Name Role Phone Carlos Hernandez DO Primary Care Provider Reason for Referral * Consultation (Routine) - Closed Specialty Diagnoses / Procedures Referred By Guanaco marie Referred To Contact Dermatology Diagnoses Psoriasis Lan Singh MD [facility] [place] [address] Htr Dermatology [address] [place] [address] Referral ID Status Reason Start Date Expiration Date V isits Requested Visits Authorized [id number] Closed Consult, Test & Treat 03/06/2019 03/05/2020 1 1 Encounter Details Date Type Department Care Team (Late st Contact Info) Description 03/06/2019 11:00 AM EDT Office [place] [address] Lan Singh MD [facility] [place] [address] Psoriasis Social History Tobacco Use Types Packs/Day [...] Sign Reading Time Taken Comments Blood Pressure 145/56 03/06/2019 11:05 AM EDT Pulse 54 03/06/2019 11:05 AM EDT Temperature 36.4 ??C (97.6 ??F) 03/06/2019 11:05 AM E DT Respiratory Rate - - Oxygen Saturation 97% 03/06/2019 11:05 AM EDT Inhaled Oxygen Concentration - - Weight 144.7 kg (319 lb) 03/06/2019 11:05 AM EDT Height 177.8 cm (5' 10) 03/06/2019 11:05 AM EDT Body Mass Index 45.77 03/06/2019 11:05 AM EDT documented in this encounter Progress Notes * Lan Singh MD - 03/06/2019 11:00 AM EDT Lan Singh MD (Physician) ? Rheumatology ? 10/08/2018 12:30 PM ? Signed Is a follow-up appointment for Raghu??Ariadna?? date is 1945 ?? 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 ??He is currently on??cosentyx??for psoriasis and psoriatic arthritis with excellent control?? His knee pain was due to osteoarthritis and injections were helpful he no longer has discomfort andis trying to walk on a daily basis his new complaint is a new skin lesion at the vertex of head which is not itchy but is a little scaly he also has some erythematous pruritic lesions on his back On exam he is healthy appearing but massively overweight BP 145/56 Pulse 54 Temp 36.4 ??C (97.6 ??F) Ht 177.8 cm (5' 10) Wt (!) 144.7 kg (319 lb) SpO2 97% BMI 45.77 kg/m?? His HEENT exam is notable for a moist mucous membranes poor pharyngeal opening consistent with obstructive sleep apnea The lesion on his scalp is about 3 x 3 cm slightly depressed with scaly although it could be psoriasis it also has the appearance of discoid or even a malignancy for this am sending him back to dermatology who he last saw in 2017 The general physical exam is unremarkable except for the obesity his knees have osteoarthritis but he has no effusions no pain or swelling I kept him on the same medications I ordered blood counts and chemistries that are pending and I will have him follow-up in [address] Martin Tim documented in this encounter Miscellaneous Notes * Addendum Note - Ozzie Erickson - 03/06/2019 11:00 AM EDTAddended by: OZZIE ERICKSON on: 03/06/2019 11:43 AM Modules accepted: Orders documented in this encounter Plan of Treatment Upcoming Encounters Date Type Department Care Team (Late st Contact Info) Description 12/18/2024 2:00 PM EDT Office Visit Dermatology at [address] [phone] Joyce Snyder MD [facility] [place] [address] Scheduled Referrals Name Type Priority Associated Diagnoses Order Schedule Referral to Dermatology Outpatient Referral Routine Psoriasis Ordered: 03/06/2019 documented as of this encounter Goals Goal [...] Priority Date/Time Associated Diagnosis Comments HEMOGRAM Routine 03/06/2019 11:48 AM EDT Psoriasis DIFFERENTIAL, AUTOMATED Routine 03/06/2019 11:48 AM EDT Psoriasis CBC (WITH DIFF) Routine 03/06/2019 11:48 AM EDT Psoriasis COMPREHENSIVE METABOLIC PANEL Routine 03/06/2019 11:48 AM EDT Psoriasis documented in this encounter Results * Differential, Automated (03/06/2019 11:48 AM EDT) Neutrophil % 60.0 % [facility] Neutrophil Absolute 2.98 1.70 - 6.10 x10(3)/[facility] Lymph % 23.2 % [facility] Lymphocytes Abs 1.2 0.9 - 3.2 x10(3)/[facility] Monocyte % 9.1 % [facility] Monocyte Abs 0.4 0.3 - 0.9 x10(3)/[facility] Eos % 6.3 % [facility] Eosinophils Abs 0.3 0.0 - 0.4 x10(3)/[facility] Basophil % 1.0 % [facility] Baso Absolute 0.0 0.0 - 0.1 x10(3)/[facility] Immature Gran % 0.40 % [facility] Comment: Immature granulocytes(IG's)percentage and absolute count will include metamyelocytes, myelocytes, and promyelocytes. Blood smears from CBCs yielding IG's will be scanned manually for concordance. If this scan disagrees with the automated IG or if promyelocytes are noted, a manual differential will be performed. Immature Gran Absolute 0.02 0.00 - 0.04 x10(3)/[facility] Blood specimen (specimen) 03/06/2019 11:48 AM EDT 03/06/2019 12:07 PM EDT Narrative Resulting Agency Comment Spec In Lab Lan Singh MD HEMATOLOGY ORDERABLE S [facility] [place] [address] * (ABNORMAL) Hemogram (03/06/2019 11:48 AM EDT) White Blood Cell 5.0 4.0 - 9.5 x10(3)/mc L [facility] Red Blood Cell 4.49(L) 4.58 - 5.54 x10(6)/mc L [facility] Hemoglobin 13.1(L) 13.7 - 16.5 gm/dL [facility] Hematocrit 40.9 40.5 - 48.5 % [facility] Mean Cell Volume 91.1 82.9 - 93.1 fL [facility] Mean Cell Hemoglobin 29.2 27.5 - 32.1 pg [facility] Mean Cell Hemoglobin Concentration 32.0 32.0 - 35.7 gm/dL [facility] Platelet 169 145 - 357 x10(3)/mc L [facility] RDW Standard Deviation 43.1 36.0 - 45.0 fL [facility] RDW coefficient of variation 13.0 11.4 - 13.8 % [facility] Mean Platelet Volume 9.9 7.6 - 12.9 fL [facility] NRBC% auto 0.0 % [facility] NRBC Absolute 0.000 0.000 - 0.000 x10(3)/mc L [facility] Blood specimen (specimen) 03/06/2019 11:48 AM EDT 03/06/2019 12:07 PM EDT Narrative Resulting Agency Comment Spec In Lab Lan Singh MD HEMATOLOGY ORDERABLE S [facility] [place] [address] * (ABNORMAL) Comprehensive metabolic panel (non-fasting) (03/06/2019 11:48 AM EDT) Glucose 92 65 - 199 mg/dL [facility] Comment:Diabetes: >=200 mg/d L plus symptoms Blood Urea Nitrogen 32(H) 10 - 20 mg/dL [facility] Creatinine 1.39 0.80 - 1.50 mg/dL [facility] Sodium 142 135 - 145 mmol/L [facility] Potassium 4.4 3.5 - 5.0 mmol/L [facility] Comment: Please note: ??Patients with WBC >100,000 may have falsely elevated Potassium levels. ??For accurate Potassium quantification in these patients send serum separator tube (gold top) for subsequent determinations. ??Contact the Clinical Chemistry Laboratory if there are any questions. Chloride 104 98 - 107 mmol/L [facility] Carbon Dioxide 24 22 - 31 mmol/L [facility] Anion Gap 14 5 - 15 mmol/L [facility] Calcium 10.6(H) 8.5 - 10.5 mg/dL [facility] Protein, Total 7.4 6.1 - 8.0 gm/dL [facility] Albumin 4.5 3.2 - 5.2 gm/dL [facility] Aspartate Aminotransferase 40(H) 0 - 39 unit/L [facility] Alanine Aminotransferase 33 0 - 55 unit/L [facility] Alkaline Phosphatase 43 40 - 120 unit/L [facility] Bilirubin, Total 0.2 0.2 - 1.3 mg/dL [facility] Est Glomerular Filtration Rate 50(L) >=60 mL/min/1. 73 m?? [facility] Comment: The eGFR was calculated using the CKD-EPI equation. As with all creatinine based estimates of kidney function, eGFR values calculated with the CKD-EPI equation are not accurate in patients with acute kidney failure, extremes of body mass or the acutely ill. [email or web address] CITYnkf eGFR 58(L) >=60 mL/min/1. 73 m?? [facility] Comment: The eGFR was calculated using the CKD-EPI equation. As with all creatinine based estimates of kidney function, eGFR values calculated with the CKD-EPI equation are not accurate in patients with acute kidney failure, extremes of body mass or the acutely ill. [email or web address] Blood specimen (specimen) 03/06/2019 11:48 AM EDT 03/06/2019 12:07 PM EDT Narrative Resulting Agency Comment Spec In Lab Lan Singh MD CHEMISTRY ORDERABLES [facility] [place] [address] documented in this encounter Visit Diagnoses Diagnosis Psoriasis Other psoriasis documented in this encounter Care Teams Wax Pourer Relationship Specialty Start Date End Date Carlos Hernandez DO [address] [place] [address] PCP - General 08/16/10 02/25/23 documented as of this encounter
--- OUTSIDE RECORDS SUMMARY | 2024-09-23 14:21 | XMS_ITS | Encounter Summary ---
Author Organization [facility] [place] [address] Care Team Providers Care [facility] Manager Name Role Phone Carlos Hernandez DO Primary Care Provider Reason for Referral * Consultation (Routine) - Denied Specialty Diagnoses / Procedures Referred By Guanaco marie Referred To Contact General Surgery Diagnoses Psoriasis Lan Singh MD [facility] [place] [address] [facility] Gen Surgery [address] [address] Referral ID Status Reason Start Date Expiration Date V isits Requested Visits Authorized [id number] Denied Consult, Test & Treat 08/14/2017 08/14/2018 1 0 Reason for Visit * Reason Comments Follow-up Encounter Details Date Type Department Care Team (Late st Contact Info) Description 08/14/2017 9:00 AM EST [place] [phone] Lan Singh MD [facility] [place] [address] Psoriasis Social History Tobacco Use Types Packs/Day [...] Sign Reading Time Taken Comments Blood Pressure 153/61 08/14/2017 9:10 AM EST Pulse 58 08/14/2017 9:10 AM EST Temperature 36.4 ??C (97.6 ??F) 08/14/2017 9:10 AM ES T Respiratory Rate - - Oxygen Saturation 94% 08/14/2017 9:10 AM EST Inhaled Oxygen Concentration - - Weight 144.7 kg (319 lb) 08/14/2017 9:10 AM EST Height 177.8 cm (5' 10) 08/14/2017 9:10 AM EST Body Mass Index 45.77 08/14/2017 9:10 AM EST documented in this encounter Progress Notes * Lan Singh MD - 08/14/2017 9:00 AM EST The patient is a 71-year-old male with psoriasis, psoriatic arthritis, sleep apnea on CPAP, osteoarthritis, dyshidrotic eczema, 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 He was on Stelara for psoriasis and psoriatic arthritis, but not on a DMARD. We had tried him on sulfasalazine and leflunomide and neither of them could he tolerate. Plaquenil was contraindicated and when I saw him, he had an erythematous, erythroderma-like rash and worse joint pain. The rash probably turned out to be eczema, but I had switched him from Stelara to Cosentyx and it made a dramatic improvement in both his psoriasis and his psoriatic arthritis. He no longer has morning stiffness, joint pain, swelling, heat, or tenderness. He is outside doing logging and other chores. He still has a lot of discomfort from them, but probably due to his osteoarthritis. It doesn't appear to be fibromyalgia His other major problem is morbid obesity with a BMI greater than 45. He has borderline glucose intolerance and in spite of the CPAP for his sleep apnea, he is fatigued. On exam, he is healthy appearing, very active and excited about the holiday, seeing his kids and grandkids. His blood pressure is elevated at 153/61, he attributes that to the difficulty in traffic. His pulse is 58, his pulse oximetry is 94, his temp is 97.6. His weight is 319, which is 1 pound less than it was the last time. His BMI is 46. His articular exam is notable for synovial thickening, but no synovitis. 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 The left is substantially better than it was. The right is a little bit worse than it was 6 months ago, but within the same range. His general physical exam aside from the obesity is unremarkable. The laboratory studies are pending at the time of this dictation. I kept him on the same medicines. He is still on the hydrochlorothiazide for the blood pressure and I think he needs that. He might need an adjustment of it. The only change I made was to refer him to Bariatric Surgery. I will follow up in 6 months. Results for IRVING ROSENTHAL ( ) as of 08/14/2017 10:39 Ref. Range 08/14/2017 10:06 WBC Latest Ref Range: 4.0 - 9.5 x10(3)/mcL 5.6 RBC Latest Ref Range: 4.58 - 5.54 x10(6)/mcL 4.98 Hemoglobin Latest Ref Range: 13.7 - 16.5 gm/dL 14.3 Hematocrit Latest Ref Range: 40.5 - 48.5 % 42.6 MCV Latest Ref Range: 82.9 - 93.1 fL 85.5 MCH Latest Ref Range: 27.5 - 32.1 pg 28.7 MCHC Latest Ref Range: 32.0 - 35.7 gm/dL 33.6 RDWSD Latest Ref Range: 36.0 - 45.0 fL 42.6 RDWCV Latest Ref Range: 11.4 - 13.8 % 13.6 Platelets Latest Ref Range: 145 - 357 x10(3)/mcL 159 MPV Latest Ref Range: 7.6 - 12.9 fL 9.6 nRBC % Auto Latest Units: % 0.0 nRBC Abs Auto Latest Ref Range: 0.000 - 0.000 x10(3)/mcL 0.000 Neutr Abs (ANC) Latest Ref Range: 1.70 - 6.10 x10(3)/mcL 3.26 Neutrophils % Latest Units: % 58.7 Immature Gran % Latest Units: % 0.50 Lymphocytes % Latest Units: % 24.9 Monocytes % Latest Units: % 8.5 Eosinophils % Latest Units: % 6.3 Basophils % Latest Units: % 1.1 Alize Gran Abs Latest Ref Range: 0.00 - 0.04 x10(3)/mcL 0.03 Lymphocytes Abs Latest Ref Range: 0.9 - 3.2 x10(3)/mcL 1.4 Monocyte Abs Latest Ref Range: 0.3 - 0.9 x10(3)/mcL 0.5 Eosinophils Abs Latest Ref Range: 0.0 - 0.4 x10(3)/mcL 0.4 Basophils Abs Latest Ref Range: 0.0 - 0.1 x10(3)/mcL 0.1 documented in this encounter Plan of Treatment Upcoming Encounters Date Type Department Care Team (Late st Contact Info) Description 12/18/2024 2:00 PM EDT Office Visit Dermatology at [address] [phone] Joyce Snyder MD [facility] [place] [address] Scheduled Referrals Name Type Priority Associated Diagnoses Orde r Schedule Referral to Bariatric Surgery Program Outpatient Referral Routine Psoriasis Ordered: 08/14/2017 documented as of this encounter Goals Goal [...] Procedure Name Priority Date/Time Associated Diagnosis Comments CRP, ACUTE INFLAMMATION Routine 08/14/2017 10:06 AM EST Psoriasis HEMOGRAM Routine 08/14/2017 10:06 AM EST Psoriasis DIFFERENTIAL, AUTOMATED Routine 08/14/2017 10:06 AM EST Psoriasis SEDIMENTATION RATE Routine 08/14/2017 10 :06 AM EST Psoriasis CBC (WITH DIFF) Routine 08/14/2017 10:06 AM EST Psoriasis COMPREHENSIVE METABOLIC PANEL Routine 08/14/2017 10:06 AM EST Psoriasis documented in this encounter Results * Differential, Automated (08/14/2017 10:06 AM EST) Neutrophil % 58.7 % [facility] Neutrophil Absolute 3.26 1.70 - 6.10 x10(3)/[facility] Lymph % 24.9 % [facility] Lymphocytes Abs 1.4 0.9 - 3.2 x10(3)/[facility] Monocyte % 8.5 % [facility] Monocyte Abs 0.5 0.3 - 0.9 x10(3)/[facility] Eos % 6.3 % [facility] Eosinophils Abs 0.4 0.0 - 0.4 x10(3)/[facility] Basophil % 1.1 % [facility] Baso Absolute 0.1 0.0 - 0.1 x10(3)/[facility] Immature Gran % 0.50 % [facility] Comment: Immature granulocytes(IG's)percentage and absolute count will include metamyelocytes, myelocytes, and promyelocytes. Blood smears from CBCs yielding IG's will be scanned manually for concordance. If this scan disagrees with the automated IG or if promyelocytes are noted, a manual differential will be performed. Immature Gran Absolute 0.03 0.00 - 0.04 x10(3)/[facility] Blood specimen (specimen) 08/14/2017 10:06 AM EST 08/14/2017 10:12 AM EST Narrative Resulting Agency Comment Spec In Lab Lan Singh MD HEMATOLOGY ORDERABLE S Performing Organization Address City/[facility]/ZIP Co de Phone Number [facility] [place] [address] * Hemogram (08/14/2017 10:06 AM EST) White Blood Cell 5.6 4.0 - 9.5 x10(3)/[facility] Red Blood Cell 4.98 4.58 - 5.54 x10(6)/[facility] Hemoglobin 14.3 13.7 - 16.5 gm/dL [facility] Hematocrit 42.6 40.5 - 48.5 % [facility] Mean Cell Volume 85.5 82.9 - 93.1 [facility] Mean Cell Hemoglobin 28.7 27.5 - 32.1 pg [facility] Mean Cell Hemoglobin Concentration 33.6 32.0 - 35.7 gm/dL [facility] Platelet 159 145 - 357 x10(3)/[facility] RDW Standard Deviation 42.6 36.0 - 45.0 [facility] RDW coefficient of variation 13.6 11.4 - 13.8 % [facility] Mean Platelet Volume 9.6 7.6 - 12.9 [facility] NRBC% auto 0.0 % [facility] NRBC Absolute 0.000 0.000 - 0.000 x10(3)/[facility] Blood specimen (specimen) 08/14/2017 10:06 AM EST 08/14/2017 10:12 AM EST Narrative Resulting Agency Comment Spec In Lab Lan Singh MD HEMATOLOGY ORDERABLE S [facility] [place] [address] * CRP, acute inflammation (08/14/2017 10:06 AM EST) C-Reactive Protein 4.6 <=4.9 mg/L [facility] Blood specimen (specimen) 08/14/2017 10:06 AM EST 08/14/2017 10:12 AM EST Narrative Resulting Agency Comment Spec In Lab Lan Singh MD CHEMISTRY ORDERABLES Performing Organization Address [facility] Co de Phone Number [facility] [place] [address] * Sedimentation rate (08/14/2017 10:06 AM EST) [facility] [address] Sedimentation Rate Automated 7 0 - 15 mm/hr [facility] Blood specimen (specimen) 08/14/2017 10:06 AM EST 08/14/2017 10:12 AM EST Narrative Resulting Agency Comment Spec In Lab Lan Singh MD HEMATOLOGY ORDERABLE S Performing Organization Address [facility] Co de Phone Number [facility] [place] [address] * (ABNORMAL) Comprehensive metabolic panel (non-fasting) (08/14/2017 10:06 AM EST) Glucose 131 65 - 199 mg/dL [facility] Comment:Diabetes: >=200 mg/d L plus symptoms Blood Urea Nitrogen 26(H) 10 - 20 mg/dL [facility] Creatinine 1.49 0.80 - 1.50 mg/dL [facility] Sodium 142 135 - 145 mmol/L [facility] Potassium 4.0 3.5 - 5.0 mmol/L [facility] Comment: Please note: ??Patients with WBC >100,000 may have falsely elevated Potassium levels. ??For accurate Potassium quantification in these patients send serum separator tube (gold top) for subsequent determinations. ??Contact the Clinical Chemistry Laboratory if there are any questions. Chloride 102 98 - 107 mmol/L [facility] Carbon Dioxide 27 22 - 31 mmol/L [facility] Anion Gap 13 5 - 15 mmol/L [facility] Calcium 9.7 8.5 - 10.5 mg/dL [facility] Protein, Total 7.1 6.1 - 8.0 gm/dL [facility] Albumin 4.3 3.2 - 5.2 gm/dL [facility] Aspartate Aminotransferase 29 0 - 39 unit/L [facility] Alanine Aminotransferase 34 0 - 55 unit/L [facility] Alkaline Phosphatase 31(L) 40 - 120 unit/L [facility] Bilirubin, Total 0.3 0.2 - 1.3 mg/dL [facility] Est Glomerular Filtration Rate 47(L) >=60 [facility] Comment: The reported eGFR should be multiplied by 1.2 for patients. The MDRD is not an appropriate measure of renal function for patients with body mass extremes or in patients with acute kidney failure. http://[employer]/DHnkdep http://[employer]/DHMCnkf Blood specimen (specimen) 08/14/2017 10:06 AM EST 08/14/2017 10:12 AM EST Narrative Resulting Agency Comment Spec In Lab Lan Singh MD CHEMISTRY ORDERABLES [facility] [place] [address] documented in this encounter Visit Diagnoses Diagnosis Psoriasis Other psoriasis documented in this encounter Care Teams [facility] Manager Relationship Specialty Start Date End Date Carlos Hernandez DO [address] [place] [address] PCP - General 08/16/10 02/25/23 documented as of this encounter
--- OUTSIDE RECORDS SUMMARY | 2024-09-23 14:21 | XMS_ITS | Encounter Summary ---
Author Organization [facility] [place] [address] Care Team Providers Care Burnisher And Bumper Name Role Phone Carlos Hernandez DO Primary Care Provider [phone] Reason for Visit * Reason Comments Medication Management Encounter Details Date Type Department Care Team (Late st Contact Info) Description 04/20/2017 Specialty [place] [phone] Jono Reed RPH Social History Tobacco Use Types Packs/Day [...] as of this encounter Progress Notes * Jono Reed RPH - 04/20/2017 11:13 AM EDT Specialty Pharmacy Consultation; Jono Reed RPH Comprehensive Medication Management (CMM) Raghu Rosenthal [...] patient 7 days prior to next refill. Pharmacist reviewed warnings / precautions, directions, refill process & shipping, adverse effect profile and vigilance around avoiding and reporting infections or other clinically significant side effects, and specialty pharmacy process. For the initial fill, pharmacy provided 4 syringes (2 week supply) and will ship the remaining when they arrive on 04/25/17. Allergies and Drug intolerance: Allergies Allergen Reactions ??? Vicodin [Hydrocodone-Acetaminophen] Shortness Of Breath Problems breathing ??? Morphine Sulfate Nausea And Vomiting ??? Arava [Leflunomide] Rash RASH ??? Clarithromycin ??? Hydrocodone Bitartrate ??? Indomethacin ??? Lansoprazole ??? Lipitor [Atorvastatin] Joint pain ??? Other [Unclassified Drug] IV dyes ??? Pravastatin Sodium ??? Tetracyclines ??? Venom-Honey Bee Medication Reconciliation Discrepancies (compared to [facility] med list) - none Are you experiencing any side effects from your medications? To be determined Medication List: Current Outpatient Prescriptions Medication Sig Dispense Refill ??? secukinumab (COSENTYX, 2 SYRINGES,) 150 mg/mL Syringe Inject 300 mg subcutaneously once a week.8 Syringe 3 ??? amLODIPine (NORVASC) 10 mg Tablet TAKE ONE TABLET BY MOUTH EVERY DAY 3 ??? ustekinumab (STELARA) 90 mg/mL Syringe Inject 1 mL subcutaneously Q 3 Months. 1 mL 3 ??? escitalopram (LEXAPRO) 20 mg Tablet [...] the lungs. ??? mometasone (NASONEX) 50 mcg/actuation [place], Non-Aerosol 50 mcg by Nasal route. Indications: asneeded ??? EPINEPHrine (EPIPEN) 0.3 mg/0.3 mL (1:1,000) Auto-Injector Inject 0.3 mg into the muscle once. Reported on 04/20/2017 ??? losartan (COZAAR) 100 mg Tablet Take 100 mg by mouth daily. ??? tiotropium (SPIRIVA WITH HANDIHALER) 18 mcg Capsule, w/Inhalation Device Inhale 18 mcg into thelungs daily. ??? hydrochlorothiazide (HYDRODIURIL) 25 mg tablet Take 25 mg by mouth daily. ??? chlorhexidine (PERIDEX) 0.12 % solution [...] Vitals: Ht Readings from Last 1 Encounters: 04/20/17 177.8 cm (5' 10) Wt Readings from Last 3 Encounters: 04/20/17 (!) 143.8 kg (317 lb) 10/13/16 (!) 140.2 kg (309 lb) 07/06/16 (!) 139.6 kg (307 lb 12.8 oz) Temp Readings from Last 3 Encounters: 04/20/17 36.5 ??C (97.7 ??F) 10/13/16 36.7 ??C (98 ??F) (Oral) 02/10/16 36.4 ??C (97.6 ??F) (Oral) BP Readings from Last 3 Encounters: 04/20/17 159/59 10/13/16 147/59 07/06/16 150/78 Pulse Readings from Last 3 Encounters: 04/20/17 59 10/13/16 53 07/06/16 60 Pertinent Lab values: Lab Results Component Value Date NA 144 02/10/2016 K 4.8 02/10/2016 CL 104 02/10/2016 CO2 28 02/10/2016 BUN 29 (H) 02/10/2016 CREATININE 1.32 02/10/2016 GLUCOSE 97 02/10/2016 GLUCFASTING 153 (H) 09/03/2013 CALCIUM 9.6 02/10/2016 Lab Results Component Value Date ALT 22 02/10/2016 AST 28 02/10/2016 ALKPHOS 29 (L) 02/10/2016 BILITOT 0.4 02/10/2016 BILIDIR 0.1 02/10/2016 ALBUMIN 4.6 02/10/2016 PROT 7.3 02/10/2016 Lab Results Component Value Date WBC 4.6 02/10/2016 HGB 13.8 02/10/2016 HCT 41.6 02/10/2016 MCV 87.2 02/10/2016 PLATELET 156 02/10/2016 No results found for: HA1C Immunization History Administered Date(s) Administered ??? Diphtheria,pertussis,tetanus 10/03/2011 ??? Influenza Vaccine w/Preservative, Split 07/17/2012, 06/30/2014, 07/13/2015 ??? Influenza Vaccine, Whole 07/14/2005, 08/10/2006, 07/16/2008 ??? Pneumococcal Polyvalent 23 09/19/2006, 10/03/2011 ??? Td, adult 09/24/1994, 05/01/2006 ??? Zoster Vaccine, Live 11/10/2012 Assessment and Recommendations: General Medication Management Type of medication management: chronic disease management Recipient: beneficiary Visit type: initial Method of contact: face to face Cognitive ability: good Patient Counseling Counseled the patient on the following: doses and administration discussed, possible adverse effects and management discussed, possible drug and prescription drug interactions discussed, possible drug and OTC drug and food interactions discussed, therapeutic rationale discussed, cost of medications and cost implications discussed, adherence and missed doses discussed, pharmacy contact information discussed Drug Medication Management Summary Topics discussed: doses and administration discussed, possible adverse effects and management discussed, possible drug and prescription drug interactions discussed, possible drug and OTC drug and food interactions discussed, therapeutic rationale discussed, cost of medications and cost implications discussed, adherence and missed doses discussed, pharmacy contact information discussed Time spent: 16-30 min Reviewed in detail with patient: Dose appropriateness [...] information or adherence tools provided? yes - in addition to [id number] consult, provided printed drug monograph F/u needed? yes - we will offer clinical consultation at time of refill encounter Received welcome packet: yes Informed patient of specialty pharmacy services: yes Recommendations: Monitor for efficacy and any emergent adverse effects. Pt understands no changes to current drug regimen were made at the appointment and that [facility] is providing recommendations (summary located at top of note) for provider review and follow up. Jono Reed RPH 04/20/17 11:35 AM documented in this encounter Plan of Treatment Upcoming Encounters Date Type Department Care Team (Late st Contact Info) Description 12/18/2024 2:00 PM EDT Office Visit Dermatology at [address] [phone] Joyce Snyder MD [facility] [place] [address] documented as of this encounter Goals Goal Patient Goal Type Associated Problems Recent Progress Patient-Stated? Author DH Home Medication Compliance and Understanding Patient Facing Action Plan On track( 018 9:29 AM EST) No Jono Reed [facility] Note: Patient's specific desired goal: Reduction in psoriasis patches and psoriatic arthritis pain / symptoms. Measured by: pain scale, joints affected, BSA affected by psoriasis Time-frame to meet goal: ongoing - mostly effective at this time documented as of this encounter Visit Diagnoses Diagnosis Medication management Encounter for long-term (current) use of other medications documented in this encounter Care Teams Burnisher And Bumper Relationship Specialty Start Date End Date Carlos Hernandez DO [address] [place] [address] [address] [place] [address] PCP - General 08/16/10 02/25/23 documented as of this encounter
--- OUTSIDE RECORDS SUMMARY | 2024-09-23 14:21 | XMS_ITS | Encounter Summary ---
Author Organization [facility] Address [facility] [place] [address] Care Team Providers Care Cable Tower Operator Name Role Phone Cralos Hernandez DO Primary Care Provider Encounter Details Date Type Department Care Team (Late st Contact Info) Description 02/04/2019 [place] [address] Lan Singh MD [facility] [place] [address] Psoriasis Social History Tobacco Use Types Packs/Day [...] 2:00 PM EDT Office Visit Dermatology at [facility] [address] [place] [address] Joyce Snyder MD [facility] [place] [address] documented as of this encounter Goals Goal Patient Goal Type Associated Problems Recent Progress Patient-Stated? Author DH Home Medication Compliance and Understanding Patient Facing Action Plan On track( 018 9:29 AM EST) Jono [place], [facility] Note: Patient's specific desired goal: Reduction in psoriasis patches and psoriatic arthritis pain / symptoms. Measured by: pain scale, joints affected, BSA affected by psoriasis Time-frame to meet goal: ongoing - mostly effective at this time documented as of this encounter Visit Diagnoses Diagnosis Psoriasis Other psoriasis documented in this encounter Care Teams Cable Tower Operator Relationship Specialty Start Date End Date Carlos Hernandez DO [address] [place] [address] PCP - General 08/16/10 02/25/23 documented as of this encounter
--- OUTSIDE RECORDS SUMMARY | 2024-09-23 14:21 | XMS_ITS | Encounter Summary ---
Author Organization [facility] [place] [address] Care Team Providers Care Central Processing Tech Name Role Phone Carlos Hernandez DO Primary Care Provider Reason for Visit * Reason Comments Medication Management Encounter Details Date Type Department Care Team (Late st Contact Info) Description 02/04/2019 Specialty [place] [phone] Gal Cheney RPH Social History Tobacco Use Types Packs/Day [...] as of this encounter Progress Notes * Gal Cheney RPH - 02/04/2019 3:32 PM EDT Clinical Management Plan: Refill Specialty Pharmacy Consultation; Gal Cheney RPH Comprehensive Medication Management (CMM) Raghu Rosenthal Mr. Raghu Rosenthal is a 73 y.o. (1945) male who was contacted in regard to a specialty medication refill reminder. Spoke with patient regarding secukinumab. A review of the medication therapy was performed. The medication was Refilled as scheduled (new rx pended for approval), and all medication related questions and concerns were addressed. The specialty pharmacy staff will follow up with the patient 5-7 days prior to next refill. Was a change made to the Care Plan: no If yes, should the medication be held: No Assessment and Recommendations: Title Type of Medication Management: chronic disease management Referred By: provider Recipient: beneficiary Provider: plan sponsor pharmacist Visit Type: [facility] [place] [place] Follow-up Method of Contact: by telephone Cognitive [...] Venom-Honey Bee Medication Reconciliation Discrepancies (compared to [facility] med list) -none New medications: no New [...] by pharmacy Refills needed for supportive medications: yes, ordered or provider notified Are you experiencing any side effects from your medications? no Pt understands no changes to current drug regimen were made at the appointment and that [facility] is providing recommendations (summary located at top of note) for provider review and follow up. Gal Cheney RPH 02/04/19 3:33 PM documented in this encounter Plan of Treatment Upcoming Encounters Date Type Department Care Team (Late st Contact Info) Description 12/18/2024 2:00 PM EDT Office Visit Dermatology at [facility] [address] [place] [address] [facility] [place] [address] documented as of this encounter Goals Goal Patient Goal Type Associated Problems Recent Progress Patient-Stated? Author DH Home Medication Compliance and Understanding Patient Facing Action Plan On track( 018 9:29 AM EST) Jono Madrid, [facility] Note: Patient's specific desired goal: Reduction in psoriasis patches and psoriatic arthritis pain / symptoms. Measured by: pain scale, joints affected, BSA affected by psoriasis Time-frame to meet goal: ongoing - mostly effective at this time documented as of this encounter Visit Diagnoses Not on filedocumented in this encounter Care Teams Central Processing Tech Relationship Specialty Start Date End Date Carlos Hernandez DO [address] [place] [address] PCP - General 08/16/10 02/25/23 documented as of this encounter
--- OUTSIDE RECORDS SUMMARY | 2024-09-23 14:21 | XMS_ITS | Encounter Summary ---
Author Organization [facility] Address [facility] [place] [address] Care Team Providers Care Clerical Dentist Assistant Name Role Phone Carlos Hernandez DO Primary Care Provider [phone] Encounter Details Date Type Department Care Team (Latest Contact Info) Description 07/23/2018 9:44 AM EDT - 07/23/2018 11:59 PM EDT Hospital Encounter XRay at [address] [place] [address] Lan Singh MD [facility] [place] [address] Psoriatic arthritis Discharge Disposition: Home Social History Tobacco Use [...] Sig Dispensed Refills Start Date End Date diclofenac (VOLTAREN) 1 % GelIndications:Psoriat ic arthritis [...] 150 mg by mouth 2 times daily. UNABLE TO FIND Uses Jayy-synephrine nasal spray 08/22/2018 amLODIPine (NORVASC) 5 mg TabletIndications:Esse ntial hypertension Take 1 tablet by mouth daily. Take each evening in addition to taking the 10 mg each morning 90 tablet 3 02/21/2018 03/10/2019 rosuvastatin (CRESTOR) 5 mg TabletIndications:Hype rlipidemia, unspecified hyperlipidemia type Take 1 tablet by mouth daily. 90 tablet 3 02/21/2018 03/10/2019 secukinumab (COSENTYX, 2 SYRINGES,) 150 mg/mL SyringeIndications:Pso riasis Inject 300 mg subcutaneously every 28 days. 6 Syringe 3 01/24/2018 02/04/2019 triamcinolone (KENALOG) 0.1 % Ointment Apply to the affected areas on the trunk and extremities twice daily for 2-3 weeks, then take 1 week break. Repeat as needed. 454 g 06/29/2017 03/17/2019 budesonide-formoterol (SYMBICORT) 160-4.5 mcg/actuation HFA Aerosol Inhaler Inhale 2 puffs into the lungs daily. 05/22/2019 mometasone (NASONEX) 50 mcg/actuation [place], Non-AerosolIndications :as needed 1 spray by Each Nare route as needed. Indications: as needed 09/27/2020 tiotropium (SPIRIVA WITH HANDIHALER) 18 mcg Capsule, w/Inhalation Device Inhale 18 mcg into the lungs daily as needed. 09/27/2020 chlorhexidine (PERIDEX) 0.12 % solution as needed. 08/06/2013 03/06/2019 Magnesium Chloride 64 mg TbEC Take 64 mg by mouth daily. 03/06/2019 documented as of this encounter Plan of Treatment Upcoming Encounters Date Type Department Care Team (Late st Contact Info) Description 12/18/2024 2:00 PM EDT Office Visit Dermatology at [facility] [address] [place] [address] Joyce Snyder MD [facility] [place] [address] documented as of this encounter Goals Goal Patient Goal Type Associated Problems Recent Progress Patient-Stated? Author DH Home Medication Compliance and Understanding Patient Facing Action Plan On track( 018 9:29 AM EST) No Jono Reed, [facility] Note: Patient's specific desired goal: Reduction in psoriasis patches and psoriatic arthritis pain / symptoms. Measured by: pain scale, joints affected, BSA affected by psoriasis Time-frame to meet goal: ongoing - mostly effective at this time documented as of this encounter Procedures Procedure Name Priority Date/Time Associated Diagnosis Comments XR KNEE AP AND LAT BILAT Routine 07/23/2018 9:57 AM EDT Psoriatic arthritis documented in this encounter Results * XR Knee 1-2 Views Bilat (Generic) (07/23/2018 9:57 AM EDT) Anatomical Region Laterality Modality Knee Bilateral Digital Radiogra phy Impressions 07/23/2018 11:39 AM EDT No obvious erosions. Subtle lucency at the lateral femoral condyle on the right is most suggestive of an osteochondral lesion. Suggest MRI for further evaluation. Narrative 07/23/2018 11:39 AM EDT EXAMINATION: XR KNEE 1-2 VIEWS BILAT (GENERIC) CLINICAL HISTORY: OA vs psoriatic arthritis TECHNIQUE: AP and lateral view of both knees. COMPARISON: None FINDINGS: Mild lateral femorotibial joint space narrowing on the right. Otherwise bilateral knee joint spaces are quite well preserved. Possible mild lateral subluxation of the right tibia against the right femur, which may be better evaluated on a standing alignment view of both legs. Subtle lucency at the articular surface of the right lateral femoral condyle may be due to an osteochondral lesion. No obvious knee joint effusion. Fabellae are present. Surgical clips in the soft tissues adjacent to the right knee. Procedure Note Tracy Hill MD - 07/23/2018 EXAMINATION: XR KNEE 1-2 VIEWS BILAT (GENERIC) CLINICAL HISTORY: OA vs psoriatic arthritis TECHNIQUE: AP and lateral view of both knees. COMPARISON: None FINDINGS: Mild lateral femorotibial joint space narrowing on the right. Otherwise bilateral knee joint spaces are quite well preserved. Possible mildlateral subluxation of the right tibia against the right femur, which may bebetter evaluated on a standing alignment view of both legs. Subtle lucency atthe articular surface of the right lateral femoral condyle may be due to an osteochondral lesion. No obvious knee joint effusion. Fabellae are present. Surgical clips inthe soft tissues adjacent to the right knee. IMPRESSION No obvious erosions. Subtle lucency at the lateral femoral condyle on theright is most suggestive of an osteochondral lesion. Suggest MRI for further evaluation. Electronically signed by: [facility], at1 11:39 AM Lan Singh MD IMG DX ORDERABLES documented in this encounter Visit Diagnoses Diagnosis Psoriatic arthritis Psoriatic arthropathy documented in this encounter Care Teams Clerical Dentist Assistant Relationship Specialty Start Date End Date Carlos Hernandez DO [address] [place] [address] PCP - General 08/16/10 02/25/23 documented as of this encounter
--- OUTSIDE RECORDS SUMMARY | 2024-09-23 14:21 | XMS_ITS | Encounter Summary ---
Author Organization [facility] [place] [address] Care Team Providers Care Chorus Master Name Role Phone Carlos Hernandez DO Primary Care Provider Reason for Visit * Reason Onset Date Comments Medication Refill 02/05/2019 Encounter Details Date Type Department Care Team (Late st Contact Info) Description 02/05/2019 Ref[place] [address] [facility] [place] [address] Psoriasis Social History Tobacco Use Types Packs/Day [...] PM EDT Office Visit Dermatology at [facility] [address] [place] [address] [facility] [place] [address] documented as of this encounter Goals Goal Patient Goal Type Associated Problems Recent Progress Patient-Stated? Author DH Home Medication Compliance and Understanding Patient Facing Action Plan On track( 018 9:29 AM EST) Jono Madrid, [facility] Note: Patient's specific desired goal: Reduction in psoriasis patches and psoriatic arthritis pain / symptoms. Measured by: pain scale, joints affected, BSA affected by psoriasis Time-frame to meet goal: ongoing - mostly effective at this time documented as of this encounter Visit Diagnoses Diagnosis Psoriasis Other psoriasis documented in this encounter Care Teams Chorus Master Relationship Specialty Start Date End Date Carlos Hernandez DO [address] [place] [address] PCP - General 08/16/10 02/25/23 documented as of this encounter
--- OUTSIDE RECORDS SUMMARY | 2024-09-23 14:21 | XMS_ITS | Encounter Summary ---
Author Organization [place] [address] Care Team Providers Care Oil Prospecting Observer Name Role Phone Carlos Hernandez DO Primary Care Provider [phone] Reason for Referral * Consultation (Urgent) - Closed Specialty Diagnoses / Procedures Referred By Guanaco marie Referred To Contact Dermatology Diagnoses Psoriasis Lan Singh MD [facility] [place] [address] [facility] D[facility]at[facility] [address] [place] [address] Referral ID Status Reason Start Date Expiration Date V isits Requested Visits Authorized [id number] Closed Consult, Test & Treat 05/11/2017 05/11/2018 1 1 Reason for Visit * Reason Comments Follow-up Encounter Details Date Type Department Care Team (Late st Contact Info) Description 05/11/2017 8:30 AM EDT Office [place] [address] Lan Singh MD [facility] [place] [address] Psoriasis Social History Tobacco Use Types Packs/Day [...] Sign Reading Time Taken Comments Blood Pressure 157/64 05/11/2017 8:19 AM EDT Pulse 56 05/11/2017 8:19 AM EDT Temperature - - Respiratory Rate 18 05/11/2017 8:19 AM EDT Oxygen Saturation 96% 05/11/2017 8:19 AM EDT Inhaled Oxygen Concentration - - Weight 145.2 kg (320 lb) 05/11/2017 8:19 AM EDT Height 177.8 cm (5' 10) 05/11/2017 8:19 AM EDT Body Mass Index 45.92 05/11/2017 8:19 AM EDT documented in this encounter Progress Notes * Lan Singh MD - 05/11/2017 8:30 AM EDT The patient is a 71-year-old male with psoriasis, psoriatic arthritis, sleep apnea, osteoarthritis, dyshidrotic eczema, 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 He was on Stelara for psoriasis and psoriatic arthritis but not on a DMARD because we had tried him on sulfasalazine and leflunomide and neither of those did he tolerate, and Plaquenil is contraindicated. When I saw him last time, he had an erythroderma type rash and worse joint pain. I was unclear about what the etiology was and thought that we probably ought to switch him from Stelara to Cosentyx, in part because Stelara is not a particularly good drug for psoriatic arthritis and Cosentyx is and in part because the erythroderma rash I thought might be a variant of psoriasis. Over the last month, he has been off the Stelara. He has done 3 weeks of Cosentyx and it has made no difference whatsoever. He still has the erythroderma which his very itchy and uncomfortable. He has had no obvious psoriatic skin lesions and the joint pain that he has had has been unchanged on Cosentyx compared with Stelara. On exam he is his usual anxious, obese self. His blood pressure is 157/64, pulse of 56, respirations 18, pulse ox of 96. His weight is up to 320 pounds with a BMI of 46. His HEENT exam is remarkable for the erythematous rash only on sun exposed areas of his neck and face. His chest is clear. His heart exam is notable for a systolic ejection murmur which is unchanged. His abdomen is obese. His extremities: He is so overweight it is really hard to tell how much synovitis he has. His bilingual office assistant strength in his right hand was 32 kg, suggesting he does not have any synovitis. In his left hand it was 18, which is more equivocal. He has trace to 1+ peripheral edema and the rash is only on sun exposed areas of his lower arms and legs. There are no obvious psoriatic lesions. His primary, Dr. Hernandez, stopped the hydrochlorothiazide which I think was the right thing to do. I am concerned though he has not gotten better in 2 weeks off the hydrochlorothiazide. Because of this, I am sending him to Dermatology. I will continue him on Cosentyx but in retrospect, it probably did not make any difference from the Stelara and [facility]. I ordered laboratory studies that are pending at the time of this dictation. documented in this encounter Plan of Treatment Upcoming Encounters Date Type Department Care Team (Late st Contact Info) Description 12/18/2024 2:00 PM EDT Office Visit Dermatology at [facility] [address] [place] [address] Joyce Snyder MD [facility] [place] [address] Scheduled Referrals Name Type Priority Associated Diagnoses Order Schedule Referral to Dermatology Outpatient Referral Routine Psoriasis Ordered: 05/11/2017 documented as of this encounter Goals Goal Patient Goal Type Associated Problems Recent Progress Patient-Stated? Author DH Home Medication Compliance and Understanding Patient Facing Action Plan On track( 018 9:29 AM EST) Jono Madrid, [facility] Note: Patient's specific desired goal: Reduction in psoriasis patches and psoriatic arthritis pain / symptoms. Measured by: pain scale, joints affected, BSA affected by psoriasis Time-frame to meet goal: ongoing - mostly effective at this time documented as of this encounter Procedures Procedure Name Priority Date/Time Associated Diagnosis Comments CRP, ACUTE INFLAMMATION Routine 05/11/2017 9:02 AM EDT Psoriasis HEMOGRAM Routine 05/11/2017 9:02 AM EDT Psoriasis DIFFERENTIAL, AUTOMATED Routine 05/11/2017 9:02 AM EDT Psoriasis SEDIMENTATION RATE Routine 05/11/2017 9: 02 AM EDT Psoriasis CBC (WITH DIFF) Routine 05/11/2017 9:02 AM EDT Psoriasis COMPREHENSIVE METABOLIC PANEL Routine 05/11/2017 9:02 AM EDT Psoriasis documented in this encounter Results * Differential, Automated (05/11/2017 9:02 AM EDT) Neutrophil % 60.0 % [facility] Neutrophil Absolute 3.29 1.70 - 6.10 x10(3)/[facility] Lymph % 23.1 % [facility] Lymphocytes Abs 1.3 0.9 - 3.2 x10(3)/[facility] Monocyte % 9.8 % [facility] Monocyte Abs 0.5 0.3 - 0.9 x10(3)/[facility] Eos % 6.0 % [facility] Eosinophils Abs 0.3 0.0 - 0.4 x10(3)/[facility] Basophil % 0.7 % [facility] Baso Absolute 0.0 0.0 - 0.1 x10(3)/[facility] Immature Gran % 0.40 % [facility] Comment: Immature granulocytes(IG's)percentage and absolute count will include metamyelocytes, myelocytes, and promyelocytes. Blood smears from CBCs yielding IG's will be scanned manually for concordance. If this scan disagrees with the automated IG or if promyelocytes are noted, a manual differential will be performed. Immature Gran Absolute 0.02 0.00 - 0.04 x10(3)/mcL [facility] Blood specimen (specimen) 05/11/2017 9:02 AM EDT 05/11/2017 9:13 AM EDT Narrative Resulting Agency Comment Spec In Lab Lan Singh MD HEMATOLOGY ORDERABLE S [facility] [place] [address] * (ABNORMAL) Hemogram (05/11/2017 9:02 AM EDT) White Blood Cell 5.5 4.0 - 9.5 x10(3)/mc L [facility] Red Blood Cell 4.82 4.58 - 5.54 x10(6)/mc L [facility] Hemoglobin 13.9 13.7 - 16.5 gm/dL [facility] Hematocrit 42.1 40.5 - 48.5 % [facility] Mean Cell Volume 87.3 82.9 - 93.1 fL [facility] Mean Cell Hemoglobin 28.8 27.5 - 32.1 pg [facility] Mean Cell Hemoglobin Concentration 33.0 32.0 - 35.7 gm/dL [facility] Platelet 157 145 - 357 x10(3)/mc L [facility] RDW Standard Deviation 44.1 36.0 - 45.0 [facility] RDW coefficient of variation 13.9(H) 11.4 - 13.8 % [facility] Mean Platelet Volume 9.4 7.6 - 12.9 fL [facility] NRBC% auto 0.0 % [facility] NRBC Absolute 0.000 0.000 - 0.000 x10(3)/mc L [facility] Blood specimen (specimen) 05/11/2017 9:02 AM EDT 05/11/2017 9:13 AM EDT Narrative Resulting Agency Comment Spec In Lab Lan Singh MD HEMATOLOGY ORDERABLE S Performing Organization Address City/[facility]/ZIP Co de Phone Number [facility] [place] [address] * (ABNORMAL) CRP, acute inflammation (05/11/2017 9:02 AM EDT) C-Reactive Protein 6.6(H) <=4.9 mg/L [facility] Blood specimen (specimen) 05/11/2017 9:02 AM EDT 05/11/2017 9:13 AM EDT Narrative Resulting Agency Comment Spec In Lab Lan Singh MD CHEMISTRY ORDERABLES Performing Organization Address [facility]/ZIP Co de Phone Number [facility] [place] [address] * Sedimentation rate (05/11/2017 9:02 AM EDT) Sedimentation Rate Automated 7 0 - 15 mm/hr [facility] Blood specimen (specimen) 05/11/2017 9:02 AM EDT 05/11/2017 9:13 AM EDT Narrative Resulting Agency Comment Spec In Lab Lan Singh MD HEMATOLOGY ORDERABLE S Performing Organization Address City/[facility]/ZIP Co de Phone Number [facility] [place] [address] * (ABNORMAL) Comprehensive metabolic panel (non-fasting) (05/11/2017 9:02 AM EDT) Glucose 123 65 - 199 mg/dL [facility] Comment:Diabetes: >=200 mg/d L plus symptoms Blood Urea Nitrogen 25(H) 10 - 20 mg/dL [facility] Creatinine 1.39 0.80 - 1.50 mg/dL [facility] Comment: Please note that the pediatric reference intervals supplied above were not validated at [facility]. Results from pediatric patients should be interpreted in conjunction to the patient's age, height and muscle mass. Sodium 141 135 - 145 mmol/L [facility] Potassium 4.2 3.5 - 5.0 mmol/L [facility] Comment: Please note: ??Patients with WBC >100,000 may have falsely elevated Potassium levels. ??For accurate Potassium quantification in these patients send serum separator tube (gold top) for subsequent determinations. ??Contact the Clinical Chemistry Laboratory if there are any questions. Chloride 104 98 - 107 mmol/L [facility] Carbon Dioxide 24 22 - 31 mmol/L [facility] Anion Gap 13 5 - 15 mmol/L [facility] Calcium 9.8 8.5 - 10.5 mg/dL [facility] Protein, Total 7.4 6.1 - 8.0 gm/dL [facility] Albumin 4.5 3.2 - 5.2 gm/dL [facility] Aspartate Aminotransferase 29 0 - 39 unit/L [facility] Alanine Aminotransferase 29 0 - 55 unit/L [facility] Alkaline Phosphatase 30(L) 40 - 120 unit/L [facility] Bilirubin, Total 0.3 0.2 - 1.3 mg/dL [facility] Est Glomerular Filtration Rate 51(L) >=60 [facility] Comment: This estimated GFR (eGFR) value was calculated using the MDRD equation which has been validated on patients between the ages of 18 and 70. The MDRD should not be used to assess kidney function in patients < 18 years of age or in patients with extremes of body mass, or in patients with acute kidney failure. This value should be multiplied by 1.2 for patients. For further information please copy and paste the following links into your internet browser. [email or web address] Blood specimen (specimen) 05/11/2017 9:02 AM EDT 05/11/2017 9:13 AM EDT Narrative Resulting Agency Comment Spec In Lab Lan Singh MD CHEMISTRY ORDERABLES Performing Organization Address City/State/[facility] Co de Phone Number [facility] [address] documented in this encounter Visit Diagnoses Diagnosis Psoriasis Other psoriasis documented in this encounter Care Teams Oil Prospecting Observer Relationship Specialty Start Date End Date Carlos Hernandez DO [address] [place] [address] PCP - General 08/16/10 02/25/23 documented as of this encounter
--- OUTSIDE RECORDS SUMMARY | 2024-09-23 14:21 | XMS_ITS | Encounter Summary ---
Author Organization [facility] [place] [address] Care Team Providers Care Photographer Helper Name Role Phone Carlos Hernandez DO Primary Care Provider Reason for Visit * Reason Comments Medication Management Encounter Details Date Type Department Care Team (Late st Contact Info) Description 10/29/2017 Specialty [place] [phone] Geena Sandoval Social History Tobacco Use Types [...] Progress Notes * Geena Guzmán RPH - 10/29/2017 9:25 AM EST Specialty Pharmacy Consultation; Geena Guzmán RPH Comprehensive Medication Management (CMM) Raghu Rosenthal Diagnosis: Psoriasis and Psoriatic Arthritis Mr. Raghu Rosenthal is a 72 y.o. (1945) male who was contacted in [...] to proceed with the Clinical Assessment? Yes Allergies and Drug intolerance: Allergies Allergen Reactions ??? Vicodin [Hydrocodone-Acetaminophen] Shortness Of Breath Problems breathing ??? Morphine Sulfate Nausea And Vomiting ??? Arava [Leflunomide] Rash RASH ??? Clarithromycin ??? Hydrocodone Bitartrate ??? Indomethacin ??? Lansoprazole ??? Lipitor [Atorvastatin] Joint pain ??? Other [Unclassified Drug] IV dyes ??? Pravastatin Sodium ??? Tetracyclines ??? Venom-Honey Bee Medication Reconciliation Discrepancies (compared to [facility] med list) -patient currently taking Spironolactone, dose unknown Medication Adherence Patient reported X missed doses [...] Outpatient Prescriptions Medication Sig Dispense Refill ??? amLODIPine (NORVASC) 5 mg Tablet Take 1 tablet by mouth daily. Take each evening in addition totaking the 10 mg each morning 90 tablet 0 ??? rosuvastatin (CRESTOR) 5 mg Tablet Take 1 tablet by mouth daily. 90 tablet 0 ??? hydroCHLOROthiazide (HYDRODIURIL) 25 mg Tablet Take 25 mg by mouth daily. 4 ??? triamcinolone (KENALOG) 0.1 % Ointment Apply to the affected areas on the trunk and extremitiestwice daily for 2-3 weeks, then take 1 week break. Repeat as needed. 454 g 0 ??? secukinumab (COSENTYX, 2 SYRINGES,) 150 mg/mL Syringe Inject 300 mg subcutaneously every 28 days. 6 Syringe 3 ??? amLODIPine (NORVASC) 10 mg Tablet TAKE ONE TABLET BY MOUTH EVERY DAY 3 ??? escitalopram (LEXAPRO) 20 mg Tablet Take 20 mg by mouth daily. ??? traZODone (DESYREL) 100 mg Tablet Take 100 mg by mouth nightly. ??? budesonide-formoterol (SYMBICORT) 160-4.5 mcg/actuation HFA Aerosol Inhaler Inhale 2 puffs intothe lungs daily. ??? mometasone (NASONEX) 50 mcg/actuation [place], Non-Aerosol 1 spray by Each Nare route [...] ??? Magnesium Chloride 64 mg TbEC Take 64 mg by mouth daily. ??? aspirin 81 mg chewable tablet Take 81 mg by mouth daily. ??? Fenofibric Acid (TRILIPIX) 135 mg CpDR Take 1 tablet by mouth daily. ??? ranitidine (ZANTAC) 150 mg tablet Take 150 mg by mouth 2 times daily. No current facility-administered medications for this visit. Most Recent Vitals: Ht Readings from Last 1 Encounters: 08/14/17 177.8 cm (5' 10) Wt Readings from Last 3 Encounters: 08/14/17 (!) 144.7 kg (319 lb) 05/11/17 (!) 145.2 kg (320 lb) 04/20/17 (!) 143.8 kg (317 lb) Temp Readings from Last 3 Encounters: 08/14/17 36.4 ??C (97.6 ??F) (Oral) 04/20/17 36.5 ??C (97.7 ??F) 10/13/16 36.7 ??C (98 ??F) (Oral) BP Readings from Last 3 Encounters: 08/14/17 153/61 05/11/17 157/64 04/20/17 159/59 Pulse Readings from Last 3 Encounters: 08/14/17 58 05/11/17 56 04/20/17 59 Pertinent Lab values: Lab Results Component Value Date NA 142 08/14/2017 K 4.0 08/14/2017 CL 102 08/14/2017 CO2 27 08/14/2017 BUN 26 (H) 08/14/2017 CREATININE 1.49 08/14/2017 GLUCOSE 131 08/14/2017 GLUCFASTING 153 (H) 09/03/2013 CALCIUM 9.7 08/14/2017 Lab Results Component Value Date ALT 34 08/14/2017 AST 29 08/14/2017 ALKPHOS 31 (L) 08/14/2017 BILITOT 0.3 08/14/2017 BILIDIR 0.1 02/10/2016 ALBUMIN 4.3 08/14/2017 PROT 7.1 08/14/2017 Lab Results Component Value Date WBC 5.6 08/14/2017 HGB 14.3 08/14/2017 HCT 42.6 08/14/2017 MCV 85.5 08/14/2017 PLATELET 159 08/14/2017 No results found for: HA1C Immunization History [...] of contact: by telephone Cognitive ability: good Cognitive impairment status verified this year: no Drug Interactions Provided the patient with [...] preventative care discussed, reminder to refill or warp picker medication discussed, self-monitoring discussed, timing of medications discussed, vaccination discussed Drug Medication Management Summary Topics discussed: [...] preventative care discussed, reminder to refill or warp picker medication discussed, self-monitoring discussed, timing of medications discussed, vaccination discussed Time spent: 16-30 min Treatment Outcomes 08/14/2017 Disease progression: Moderate Effectiveness of therapy, reported improvements: Much Improved Treatment Goals: Have partially been met Patient Overall Status: Stable Reviewed in detail [...] disposal of the medication Relevant lab data Appropriate Therapy: Yes Effective: yes - reports no recent flares or psoriasis lesions, reports reduction of arthritis pain Educational information or adherence tools provided? Yes F/u needed? Yes Received welcome packet: Yes Informed patient of specialty pharmacy services: Yes Recommendations: Raghu was contacted for a clinical follow-up assessment regarding Cosentyx therapy. Storage, handling, and administration were reviewed. Raghu's aids with administration and keeps track of all scheduled doses on a calendar. He reports no missed doses of Cosentyx. Infection prevention strategies were reviewed, and Raghu confirms he received the flu shot this season. Raghu was instructed to contact the clinic with any emergent signs or symptoms of infection. Raghu reports his psoriasis has cleared entirely with no recent flares. His arthritis pain has improvement significantly, with slight pain noted in his hands and wrists on occasion. He states that Cosentyx has worked wonderfully and had no further questions or concerns at this time. Pt understands no changes to current drug regimen were made at the appointment and that [facility] is providing recommendations (summary located at top of note) for provider review and follow up. Geena Guzmán RPH 10/29/17 9:33 AM documented in this encounter Plan of Treatment Upcoming Encounters Date Type Department Care Team (Late st Contact Info) Description 12/18/2024 2:00 PM EDT Office Visit Dermatology at [facility] [address] [place] [address] Joyce Snyder MD [facility] [place] [address] documented as of this encounter Goals Goal Patient Goal Type Associated Problems Recent Progress Patient-Stated? Author DH Home Medication Compliance and Understanding Patient Facing Action Plan On track( 018 9:29 AM EST) No Jono Reed, [facility] Note: Patient's specific desired goal: Reduction in psoriasis patches and psoriatic arthritis pain / symptoms. Measured by: pain scale, joints affected, BSA affected by psoriasis Time-frame to meet goal: ongoing - mostly effective at this time documented as of this encounter Visit Diagnoses Not on filedocumented in this encounter Care Teams Photographer Helper Relationship Specialty Start Date End Date Carlos Hernandez DO [address] [place] [address] PCP - General 08/16/10 02/25/23 documented as of this encounter
--- OUTSIDE RECORDS SUMMARY | 2024-09-23 14:21 | XMS_ITS | Encounter Summary ---
[place] [address] Care Team Providers Care Customer Counter Associate Name Role Phone Carlos Hernandez DO Primary Care Provider Encounter Details Date Type Department Care Team (Late st Contact Info) Description 07/23/2018 [place] [phone] Juan Carlos Barrera RN Social History Tobacco Use Types Packs/Day Years [...] encounter Miscellaneous Notes * Telephone Encounter - Juan Carlos Barrera RN - 07/23/2018 4:19 PM EDT Raghu Rosenthal - 07/23/18 More Detail >> Lan Singh MD Sent: SunJuly 23, 2018 12:30 PM To: Juan Carlos Barrera RN ?? Message If the knee pain persists he needs an MRI ----- Message ----- From: Department, Radiology Sent: 07/23/2018 ??11:45 AM To: Lan Singh MD Discussed with Raghu and he will let us know how he is doing via email. Sent Xray report to him at his request via [facility]. documented in this encounter Plan of Treatment Upcoming Encounters Date Type Department Care Team (Late st Contact Info) Description 12/18/2024 2:00 PM EDT Office Visit Dermatology at [facility] [address] [place] [address] Joyce Snyder MD [facility] [place] [address] documented as of this encounter Goals Goal [...] on filedocumented in this encounter Care Teams Customer Counter Associate Relationship Specialty Start Date End Date Carlos Hernandez DO [address] [place] [address] PCP - General 08/16/10 02/25/23 documented as of this encounter
--- OUTSIDE RECORDS SUMMARY | 2024-09-23 14:21 | XMS_ITS | Encounter Summary ---
Author Organization [place] [address] Care Team Providers Care Junior Php Developer Name Role Phone Carlos Hernandez DO Primary Care Provider [phone] Reason for Visit * Reason Onset Date Comments Other 11/08/2017 Medication [facility] ion Encounter Details Date Type Department Care Team (Late st Contact Info) Description 11/08/2017 [place]phone [place] [address] Juan Carlos Barrera RN Other (Medication Question) Social History Tobacco Use Types Packs/Day Years [...] Encounter - Juan Carlos Barrera RN - 11/08/2017 9:20 AM EST Call received from a woman stating that Nicola is ill with a bad cold and she is wondering if he should hold Cosentyx. They are currently away in [place]. RTC and left message advising to call back to discuss with nurse. Cathy calls back and I returned her call, she states that Raghu has a bad cold and has copious amount of clear nasal drainage, a non-productive cough and feels miserable. Denies any fever or chills. Reports diarrhea as well. Would like to know if he should hold Cosentyx. Advised to Hold Cosentyx until he feels 100% better. Advised if he develops fevers, Or productive cough, or just not feeling better, then he should be evaluated by his PCP. documented in this encounter Plan of Treatment Upcoming Encounters Date Type Department Care Team (Late st Contact Info) Description 12/18/2024 2:00 PM EDT Office Visit Dermatology at [facility] [address] [place] [address] Joyce Snyder MD [facility] [place] [address] documented as of this encounter Goals Goal [...] on filedocumented in this encounter Care Teams Junior Php Developer Relationship Specialty Start Date End Date Carlos Hernandez DO [address] [place] [address] [address] [place] [address] PCP - General 08/16/10 02/25/23 documented as of this encounter
--- OUTSIDE RECORDS SUMMARY | 2024-09-23 14:21 | XMS_ITS | Encounter Summary ---
Author Organization [facility] [place] [address] Care Team Providers Care Grinder Machine Knife Setter Name Role Phone Carlos Hernandez DO Primary Care Provider Reason for Visit * Reason Comments Medication Management Encounter Details Date Type Department Care Team (Late st Contact Info) Description 08/02/2017 Specialty [place] [phone] Jono Reed RPH Social History Tobacco Use [...] Progress Notes * Jono Reed RPH - 08/02/2017 11:59 PM EST Clinical Management Plan: Refill Specialty Pharmacy Consultation; Jono Reed RPH - late entry on 08/14/17 Comprehensive Medication Management (CMM) Raghu Rosenthal Mr. Raghu Rosenthal is a 71 y.o. (1945) male who was contacted in regard to a specialty medication refill reminder. Spoke with patient regarding COSENTYX. A review of the medication therapy wasperformed. The medication was refilled as scheduled, and all medication related questions and concerns were addressed. The specialty pharmacy staff will follow up with the patient 7 days prior to next refill. Assessment and Recommendations: General Medication Management Type of medication management: chronic disease management, targeted medication review Recipient: beneficiary Visit type: follow-up Method of contact: by telephone Cognitive ability: good Allergies and Drug intolerance: Allergies Allergen Reactions ??? Vicodin [Hydrocodone-Acetaminophen] Shortness Of Breath Problems breathing ??? Morphine Sulfate Nausea And Vomiting ??? Arava [Leflunomide] Rash RASH ??? Clarithromycin ??? Hydrocodone Bitartrate ??? Indomethacin ??? Lansoprazole ??? Lipitor [Atorvastatin] Joint pain ??? Other [Unclassified Drug] IV dyes ??? Pravastatin Sodium ??? Tetracyclines ??? Venom-Honey Bee Medication Reconciliation Discrepancies (compared to [facility] med list) - no problems noted New medications: no New medical conditions: no New allergies: no Adherence: Medication Adherence Patient reported X missed doses in the last month: 0 Any gaps in refill history greater than 2 weeks in the last 3 months: no Demonstrates understanding of importance of adherence: yes Informant: patient Provider-estimated medication adherence level: 90-100% Adherence tools used: calendar Support network for adherence: family member Confirmed plan for next specialty medication refill: delivery by pharmacy Are you experiencing any side effects from your medications? no Pt understands no changes to current drug regimen were made at the appointment and that [facility] is providing recommendations (summary located at top of note) for provider review and follow up. Jono Reed RPH 08/14/17 10:36 AM documented in this encounter Plan of Treatment Upcoming Encounters Date Type Department Care Team (Late st Contact Info) Description 12/18/2024 2:00 PM EDT Office Visit Dermatology at [facility] [address] [place] [address] Joyce Snyder MD [facility] [place] [address] documented as of this encounter Goals Goal Patient Goal Type Associated Problems Recent Progress Patient-Stated? Author DH Home Medication Compliance and Understanding Patient Facing Action Plan On track( 018 9:29 AM EST) Jono Madrid, [facility] Note: Patient's specific desired goal: Reduction in psoriasis patches and psoriatic arthritis pain / symptoms. Measured by: pain scale, joints affected, BSA affected by psoriasis Time-frame to meet goal: ongoing - mostly effective at this time documented as of this encounter Visit Diagnoses Diagnosis Medication management Encounter for long-term (current) use of other medications documented in this encounter Care Teams Grinder Machine Knife Setter Relationship Specialty Start Date End Date Carlos Hernandez DO [address] [place] [address] PCP - General 08/16/10 02/25/23 documented as of this encounter
--- OUTSIDE RECORDS SUMMARY | 2024-09-23 14:21 | XMS_ITS | Encounter Summary ---
Author Organization [place] [address] Care Team Providers Care Decorating Instructor Name Role Phone Carlos Hernandez DO Primary Care Provider Reason for Visit * Reason Comments Medication Management Encounter Details Date Type Department Care Team (Late st Contact Info) Description 01/24/2018 Specialty [place] [phone] Geena Sandoval Social History Tobacco Use Types [...] Progress Notes * Geena Guzmán RPH - 01/24/2018 8:58 AM EDT Clinical Management Plan: Refill Specialty Pharmacy Consultation; Geena Guzmán RPH Comprehensive Medication Management (CMM) Raghu Joel Ariadna Mr. Raghu Rosenthal is a 72 y.o. (1945) male who was contacted in regard to a specialty medication refill reminder. Spoke with caregiver. Caregiver name: Cathy hill COSENTYX. A review of the medication therapy was performed. The medication was Refilled as scheduled, and all medication related questions and concerns were addressed. The specialty pharmacy staff will follow up with the patient 5-7 days prior to next refill. Assessment and Recommendations: Cognitive Ability: good Cognitive Impairment Status Verified [...] Venom-Honey Bee Medication Reconciliation Discrepancies (compared to [facility] med list) -added spironolactone 25 mg once daily New medications: yes - spironolactone New medical conditions: no New allergies: no Adherence: Medication Adherence Patient reported X missed doses in the last month: 1, dose delayed for 7 days because patient did not feel weel Any gaps in refill history greater than 2 weeks in the last 3 months: no Demonstrates understanding of importance of adherence: yes Informant: spouse Reliability of informant: reliable Provider-estimated medication adherence level: good Reasons for non-adherence: instructed by provider to hold or take differently Adherence tools used: calendar, directed education Support network for adherence: family member Confirmed plan for next specialty medication refill: delivery by pharmacy Refills needed for supportive medications: not needed Are you experiencing any side effects from your medications? no Pt understands no changes to current drug regimen were made at the appointment and that [facility] is providing recommendations (summary located at top of note) for provider review and follow up. Geena Guzmán RPH 01/24/18 9:02 AM documented in this encounter Plan of Treatment Upcoming Encounters Date Type Department Care Team (Late st Contact Info) Description 12/18/2024 2:00 PM EDT Office Visit Dermatology at [facility] [address] [place] [phone] Joyce Snyder MD [facility] [place] [address] documented as of this encounter Goals Goal [...] on filedocumented in this encounter Care Teams Decorating Instructor Relationship Specialty Start Date End Date Carlos Hernandez DO [address] [place] [address] PCP - General 08/16/10 02/25/23 documented as of this encounter
--- OUTSIDE RECORDS SUMMARY | 2024-09-23 14:21 | XMS_ITS | Encounter Summary ---
Author Organization [facility] [place] [address] Care Team Providers Care Environment Artist Name Role Phone Carlos Hernandez DO Primary Care Provider Reason for Visit * Reason Onset Date Comments Medication Refill 06/18/2017 Encounter Details Date Type Department Care Team (Late st Contact Info) Description 06/18/2017 Refill Cardiology at [address] [phone] Raghu Graham MD Medication Refill Social History Tobacco Use Types Packs/Day Years [...] encounter Miscellaneous Notes * Telephone Encounter - Laila Hernández RN - 06/18/2017 5:16 PM EDT Call to patient's who left earlier message requesting refill of amlodipine. Patient prescribing total dose of 15 mg daily. PCP - prescribes 10 mg in AM. Requesting the 5 mg in evening prescribed by Dr. Graham. Rx prepared for 90 day supply with no refills as patient is due for f/u with Dr Graham in June. Laila Hernández RN, BSN documented in this encounter Plan of Treatment Upcoming Encounters Date Type Department Care Team (Late st Contact Info) Description 12/18/2024 2:00 PM EDT Office Visit Dermatology at [facility] [address] [place] [address] Joyce Snyder MD [facility] [place] [address] documented as of this encounter Goals Goal Patient Goal Type Associated Problems Recent Progress Patient-Stated? Author DH Home Medication Compliance and Understanding Patient Facing Action Plan On track( 018 9:29 AM EST) Jono Madrid, [facility] Note: Patient's specific desired goal: Reduction in psoriasis patches and psoriatic arthritis pain / symptoms. Measured by: pain scale, joints affected, BSA affected by psoriasis Time-frame to meet goal: ongoing - mostly effective at this time documented as of this encounter Visit Diagnoses Diagnosis Essential hypertension Unspecified essential hypertension Hyperlipidemia, unspecified hyperlipidemia type documented in this encounter Care Teams Environment Artist Relationship Specialty Start Date End Date Carlos Hernandez DO [address] [place] [address] PCP - General 08/16/10 02/25/23 documented as of this encounter
--- OUTSIDE RECORDS SUMMARY | 2024-09-23 14:21 | XMS_ITS | Encounter Summary ---
Author Organization [facility] Address [facility] [place] [address] Care Team Providers Care Rough Rice Grader Name Role Phone Carlos Hernandez DO Primary Care Provider [phone] Reason for Visit * Reason Comments Follow-up Encounter Details Date Type Department Care Team (Late st Contact Info) Description 03/07/2018 10:00 AM EDT [place] [address] Lan Singh MD [facility] [place] [address] Psoriatic arthritis; Severe obesity due to excess calories with serious comorbidity and body mass index (BMI) in 99th percentile for age in pediatric patient Social History Tobacco Use Types Packs/Day Years [...] Sign Reading Time Taken Comments Blood Pressure 127/46 03/07/2018 9:49 AM EDT Pulse 50 03/07/2018 9:49 AM EDT Temperature 36.7 ??C (98 ??F) 03/07/2018 9:49 AM EDT Respiratory Rate - - Oxygen Saturation 97% 03/07/2018 9:49 AM EDT Inhaled Oxygen Concentration - - Weight 145.6 kg (321 lb) 03/07/2018 9:49 AM EDT Height 177.8 cm (5' 10) 03/07/2018 9:49 AM EDT Body Mass Index 46.06 03/07/2018 9:49 AM EDT documented in this encounter Progress Notes * Lan Singh MD - 03/07/2018 10:00 AM EDT Is a follow-up appointment for Raghu Rosenthal date is 1945 The patient is a 72-year-old male with psoriasis psoriatic arthritis sleep apnea on CPAP osteoarthritis dyshidrotic eczema 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 He is currently on close Entex for psoriasis and psoriatic arthritis with excellent control periodically gets a swollen joint but he does not get psoriatic skin lesions Today he has a swollen tender left knee which on exam was warm. He states that these happen frequently and resolve on their own I offered to aspirate and inject that he did not want that so I cannot absolutely be certain it is due to the psoriatic arthritis He was concerned about increasing renal insufficiency with creat of 1.79. He continues to have hypertension and obesity with BMI of 46. I reassured him that I doubt this is due to the cosentyx documented in this encounter Plan of Treatment Upcoming Encounters Date Type Department Care Team (Late st Contact Info) Description 12/18/2024 2:00 PM EDT Office Visit Dermatology at [facility] [address] [place] [address] Joyce Snyder MD [facility] [place] [address] documented as of this encounter Goals Goal Patient Goal Type Associated Problems Recent Progress Patient-Stated? Author DH Home Medication Compliance and Understanding Patient Facing Action Plan On track( 018 9:29 AM EST) Jono Madrid, [facility] Note: Patient's specific desired goal: Reduction in psoriasis patches and psoriatic arthritis pain / symptoms. Measured by: pain scale, joints affected, BSA affected by psoriasis Time-frame to meet goal: ongoing - mostly effective at this time documented as of this encounter Visit Diagnoses Diagnosis Psoriatic arthritis Psoriatic arthropathy Severe obesity due to excess calories with serious comorbidity and body mass index (BMI) in 99th percentile for age in pediatric patient documented in this encounter Care Teams Rough Rice Grader Relationship Specialty Start Date End Date Carlos Hernandez DO [address] [place] [address] PCP - General 08/16/10 02/25/23 documented as of this encounter
--- OUTSIDE RECORDS SUMMARY | 2024-09-23 14:21 | XMS_ITS | Encounter Summary ---
Author Organization [facility], Located Within [facility] [place] [address] Care Team Providers Care Tavern Keeper Name Role Phone Carlos Hernandez DO Primary Care Provider Reason for Visit * Reason Onset Date Comments Medication Refill 05/11/2017 Encounter Details Date Type Department Care Team (Late st Contact Info) Description 05/11/2017 [place] [phone] Juan Carlos Barrera RN Psoriasis Social History Tobacco Use Types Packs/Day [...] Visit Dermatology at [facility] [address] [place] [phone] Joyce Snyder MD [facility] [place] [address] documented as of this encounter Goals Goal Patient Goal Type Associated Problems Recent Progress Patient-Stated? Author DH Home Medication Compliance and Understanding Patient Facing Action Plan On track( 018 9:29 AM EST) Jono Madrid, [facility] Note: Patient's specific desired goal: Reduction in psoriasis patches and psoriatic arthritis pain / symptoms. Measured by: pain scale, joints affected, BSA affected by psoriasis Time-frame to meet goal: ongoing - mostly effective at this time documented as of this encounter Visit Diagnoses Diagnosis Psoriasis Other psoriasis documented in this encounter Care Teams Tavern Keeper Relationship Specialty Start Date End Date Carlos Hernandez DO [address] [place] [address] PCP - General 08/16/10 02/25/23 documented as of this encounter
--- OUTSIDE RECORDS SUMMARY | 2024-09-23 14:21 | XMS_ITS | Encounter Summary ---
Author Organization [facility] [place] [address] Care Team Providers Care Flying Instructor Name Role Phone Carlos Hernandez DO Primary Care Provider Reason for Visit * Reason Comments Medication Management Encounter Details Date Type Department Care Team (Late st Contact Info) Description 04/29/2018 Specialty [place] [phone] Mitchell Berumen RPH Social History Tobacco Use Types Packs/Day [...] as of this encounter Progress Notes * Mitchell Berumen RPH - 04/29/2018 12:09 PM EDT Specialty Pharmacy Consultation; Mitchell Berumen RPH Comprehensive Medication Management (CMM) Raghu Welch Diagnosis: psA Mr. Raghu Rosenthal is a 72 y.o. [...] to proceed with the Clinical Assessment? No Allergies and Drug intolerance: Allergies Allergen Reactions ??? Vicodin [Hydrocodone-Acetaminophen] Shortness Of Breath Problems breathing ??? Morphine Sulfate Nausea And Vomiting ??? Arava [Leflunomide] Rash RASH ??? Clarithromycin ??? Hydrocodone Bitartrate ??? Indomethacin ??? Lansoprazole ??? Lipitor [Atorvastatin] Joint pain ??? Other [Unclassified Drug] IV dyes ??? Pravastatin Sodium ??? Tetracyclines ??? Venom-Honey Bee Medication Reconciliation Discrepancies (compared to [facility] med list) - none Medication Adherence Patient reported X missed doses [...] Outpatient Prescriptions Medication Sig Dispense Refill ??? diclofenac (VOLTAREN) 1 % Gel Apply 2 g topically 4 times daily. 100 g 3 ??? amLODIPine (NORVASC) 5 mg Tablet Take 1 tablet by mouth daily. Take each evening in addition totaking the 10 mg each morning 90 tablet 3 ??? rosuvastatin (CRESTOR) 5 mg Tablet Take 1 tablet by mouth daily. 90 tablet 3 ??? spironolactone (ALDACTONE) 25 mg Tablet Take 25 mg by mouth daily. ??? secukinumab (COSENTYX, 2 SYRINGES,) 150 mg/mL Syringe Inject 300 mg subcutaneously every 28 days. 6 Syringe 3 ??? hydroCHLOROthiazide (HYDRODIURIL) 25 mg Tablet Take 25 mg by mouth daily. 4 ??? triamcinolone (KENALOG) 0.1 % Ointment Apply to the affected areas on the trunk and extremitiestwice daily for 2-3 weeks, then take 1 week break. Repeat as needed. 454 g 0 ??? amLODIPine (NORVASC) 10 mg Tablet TAKE ONE TABLET BY MOUTH EVERY DAY 3 ??? escitalopram (LEXAPRO) 20 mg Tablet Take 20 mg by mouth daily. ??? traZODone (DESYREL) 100 mg Tablet Take 100 mg by mouth nightly. ??? budesonide-formoterol (SYMBICORT) 160-4.5 mcg/actuation HFA Aerosol Inhaler Inhale 2 puffs intothe lungs daily. ??? mometasone (NASONEX) 50 mcg/actuation [place], Non-Aerosol 1 spray by Each Nare route [...] Vitals: Ht Readings from Last 1 Encounters: 03/07/18 177.8 cm (5' 10) Wt Readings from Last 3 Encounters: 03/07/18 (!) 145.6 kg (321 lb) 02/21/18 (!) 145.7 kg (321 lb 4.8 oz) 08/14/17 (!) 144.7 kg (319 lb) Temp Readings from Last 3 Encounters: 03/07/18 36.7 ??C (98 ??F) (Oral) 08/14/17 36.4 ??C (97.6 ??F) (Oral) 04/20/17 36.5 ??C (97.7 ??F) BP Readings from Last 3 Encounters: 03/07/18 127/46 02/21/18 128/80 08/14/17 153/61 Pulse Readings from Last 3 Encounters: 03/07/18 50 02/21/18 54 08/14/17 58 Pertinent Lab values: Lab Results Component Value [...] provider Recipient: beneficiary Provider: plan sponsor pharmacist Method of Contact: by telephone Cognitive Ability: good Cognitive Impairment Status Verified this Year: no Reviewed in detail with patient: Dose appropriateness [...] data Appropriate Therapy: Yes Effective: yes - patient noted continued positive response with Cosentyx but did not give details due to minimal time available for consult Educational information or adherence tools provided? Yes F/u needed? Yes Received welcome packet: Yes Informed patient of specialty pharmacy services: Yes Recommendations: Raghu continues to be successful on Cosentyx therapy. He did not have time for a full consult at the time of our call due to work restraints but noted that he has continued to have little to no signs of disease at this time. He stated he hasn't noticed any side effects and denied issues with injection of his medication. Stated joints were good but provided no further details. The patient exhibits excellent adherence to therapy given his pharmacy record, but his did note a short lapse (less than two weeks) in therapy 6-8 weeks ago when asked about missed or delayed doses. She was not able to provide a reason for this lapse. He/they had no questions or concerns regarding his biologic therapy; no recommendations at this time. Pt understands no changes to current drug regimen were made at the appointment and that [facility] is providing recommendations (summary located at top of note) for provider review and follow up. Mitchell Berumen RPH 04/29/18 12:09 PM documented in this encounter Plan of Treatment Upcoming Encounters Date Type Department Care Team (Late st Contact Info) Description 12/18/2024 2:00 PM EDT Office Visit Dermatology at [facility] [address] [place] [phone] Joyce Snyder MD [facility] [place] [address] documented as of this encounter Goals Goal Patient Goal Type Associated Problems Recent Progress Patient-Stated? Author Home Medication Compliance and Understanding Patient Facing Action Plan On track( 018 9:29 AM EST) No Jono Reed, [facility] Note: Patient's specific desired goal: Reduction in psoriasis patches and psoriatic arthritis pain / symptoms. Measured by: pain scale, joints affected, BSA affected by psoriasis Time-frame to meet goal: ongoing - mostly effective at this time documented as of this encounter Visit Diagnoses Not on filedocumented in this encounter Care Teams Flying Instructor Relationship Specialty Start Date End Date Calros Hernandez DO [address] [place] [address] PCP - General 08/16/10 02/25/23 documented as of this encounter
--- OUTSIDE RECORDS SUMMARY | 2024-09-23 14:21 | XMS_ITS | Encounter Summary ---
Author Organization [facility] [place] [address] Care Team Providers Care Information Systems Security Analyst Name Role Phone Carlos Hernandez DO Primary Care Provider [phone] Encounter Details Date Type Department Care Team (Late st Contact Info) Description 08/22/2018 9:00 AM EST Office [place] [address] Lan Singh MD [facility] [place] [address] Psoriatic arthritis Social History Tobacco Use Types [...] Sign Reading Time Taken Comments Blood Pressure 129/60 08/22/2018 8:58 AM EST Pulse 51 08/22/2018 8:58 AM EST Temperature - - Respiratory Rate - - Oxygen Saturation 98% 08/22/2018 8:58 AM EST Inhaled Oxygen Concentration - - Weight 145.2 kg (320 lb) 08/22/2018 8:58 AM EST Height 177.8 cm (5' 10) 08/22/2018 8:58 AM EST Body Mass Index 45.92 08/22/2018 8:58 AM EST documented in this encounter Progress Notes * Lan Singh MD - 08/22/2018 9:00 AM EST Is a follow-up appointment for Raghu??Pakus?? date is 1945 ?? 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 ??He is currently on cosentyx for psoriasis and psoriatic arthritis with excellent control The last time I saw him I injected his right knee with excellent response so much so that he developed some discomfort from increased activity today he has modest right knee discomfort without swelling heat or tenderness his left knee is actually more symptomatic but not symptomatic enough to warrant injection from his standpoint his psoriasis is completely gone and as is evidence of psoriatic arthritis On exam he is unchanged his weight is 3 220 pounds with a BMI of 46 his vital signs are normal his skin is negative his joint exam is notable for synovial thickening over his MCPs and wrists bilaterally with Heberden's and Mary's nodes consistent with osteoarthritis his knees have crepitance consistent with OA which the x-rays demonstrated His laboratory studies were effectively normal We will going to follow-up in September at which time I will consider injecting his left knee if he symptomatic to see he is about to go to [place] after that and will do close [employer] monitoring labs atthat point in time documented in this encounter Plan of Treatment Upcoming Encounters Date Type Department Care Team (Late st Contact Info) Description 12/18/2024 2:00 PM EDT Office Visit Dermatology at [facility] [address] [place] [phone] Joyce Snyder MD [facility] [place] [place] [address] documented as of this encounter Goals Goal Patient Goal Type Associated Problems Recent Progress Patient-Stated? Author DH Home Medication Compliance and Understanding Patient Facing Action Plan On track( 018 9:29 AM EST) Jono Madrid, [facility] Note: Patient's specific desired goal: Reduction in psoriasis patches and psoriatic arthritis pain / symptoms. Measured by: pain scale, joints affected, BSA affected by psoriasis Time-frame to meet goal: ongoing - mostly effective at this time documented as of this encounter Visit Diagnoses Diagnosis Psoriatic arthritis Psoriatic arthropathy documented in this encounter Care Teams Information Systems Security Analyst Relationship Specialty Start Date End Date Carlos Hernandez DO [address] [place] [address] PCP - General 08/16/10 02/25/23 documented as of this encounter
--- OUTSIDE RECORDS SUMMARY | 2024-09-23 14:21 | XMS_ITS | Encounter Summary ---
Author Organization [facility] Address [facility] [place] [place] [address] Care Team Providers Care Strategic Intelligence Officer Name Role Phone Carlos Hernandez DO Primary Care Provider Reason for Visit * Reason Onset Date Comments Medication Refill 12/20/2017 Encounter Details Date Type Department Care Team (Late st Contact Info) Description 12/20/2017 Refill Cardiology at [address] [phone] Raghu Graham MD Medication Refill Social History [...] EDT Office Visit Dermatology at [facility] [address] [place] [phone] Joyce Snyder MD [facility] [place] [address] documented as of this encounter Goals Goal Patient Goal Type Associated Problems Recent Progress Patient-Stated? Author DH Home Medication Compliance and Understanding Patient Facing Action Plan On track( 018 9:29 AM EST) Jono Madrid, [facility] Note: Patient's specific desired goal: Reduction in psoriasis patches and psoriatic arthritis pain / symptoms. Measured by: pain scale, joints affected, BSA affected by psoriasis Time-frame to meet goal: ongoing - mostly effective at this time documented as of this encounter Visit Diagnoses Diagnosis Hyperlipidemia, unspecified hyperlipidemia type Essential hypertension Unspecified essential hypertension documented in this encounter Care Teams Strategic Intelligence Officer Relationship Specialty Start Date End Date Carlos Hernandez DO [address] [place] [address] PCP - General 08/16/10 02/25/23 documented as of this encounter
--- OUTSIDE RECORDS SUMMARY | 2024-09-23 14:21 | XMS_ITS | Encounter Summary ---
Author Organization [facility] [address] Care Team Providers Care Animation Director Name Role Phone Carlos Hernandez DO Primary Care Provider Reason for Referral * Diagnostic Test (Routine) - Closed Specialty Diagnoses / Procedures Referred By Guanaco marie Referred To Contact Cardiology Diagnoses Nonrheumatic aortic valve stenosis Procedures Echocardiogram Transthoracic(Leb) Irving Graham MD [facility] [place] [place] [address] Referral ID Status Reason Start Date Expiration Date V isits Requested Visits Authorized [id number] Closed Specialty Service Requested 02/21/2018 02/21/2019 1 1 Encounter Details Date Type Department Care Team (Latest Contact Info) Description 02/21/2018 10:00 AM EDT Office Visit Cardiology at [address] [phone] Irving Graham MD Coronary artery disease involving deering coronary artery of deering heart without angina pectoris; Essential hypertension; Hyperlipidemia, unspecified hyperlipidemia type; Nonrheumatic aortic valve stenosis; Bradycardia Social History Tobacco Use Types Packs/Day [...] Sign Reading Time Taken Comments Blood Pressure 128/80 02/21/2018 10:04 AM EDT Pulse 54 02/21/2018 10:04 AM EDT Temperature - - Respiratory Rate - - Oxygen Saturation 96% 02/21/2018 10: 04 AM EDT Inhaled Oxygen Concentration - - Weight 145.7 kg (321 lb 4.8 oz) 018 10:04 AM EDT Height 177.8 cm (5' 10) 02/21/2018 10: 04 AM EDT Body Mass Index 46.1 02/21/2018 10:04 AM EDT documented in this encounter Progress Notes * Irving Graham MD - 02/21/2018 10:00 AM EDT Images from the original note were not included. Formerly [facility] [place] [address] [place] [id number] CARDIOLOGY OUTPATIENT NOTE PRIMARY CARE PROVIDER: Carlos Hernandez, REFERRING PROVIDER: Carlos Hernandez PROBLEM LIST: Patient Active Problem List Diagnosis ??? Bradycardia ??? Psoriatic arthritis ??? CAD [...] ??? Psoriasis ??? Depression MEDICATIONS: Current Outpatient Prescriptions Medication Sig Dispense Refill [...] lungs daily. ??? mometasone (NASONEX) 50 mcg/actuation [place], Non-Aerosol 1 spray by Each Nare route [...] Subjective: Patient ID: Irving Rosenthal is a 72 y.o. male. HPI Mr. Rosenthal is s/p CABGx3/tissue AVR/aortoplasty in 2012. 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 ?? At this last visit in Jun 2016, the following issues were discussed: (aortic stenosis) Echo today appears stable. S/p tissue AVR. Doing well. Continue with antibiotic prophylaxis prior to dental work. ?? Hyperlipidemia He has had some intolerance to statin (Lipitor). Given his extensive CAD, will retry statin therapyat low dose (Crestor 5 mg daily). He is followed at the [facility] for labs. ?? CAD (coronary artery disease) Secondary prevention with diet/exercise/weight control. He understands the importance of weight management. Continue with aspirin, BP control and attempt to restart statin therapy. No need for further CV testing at the present time. ?? HTN (hypertension) Mr. Rosenthal is on numerous BP medications, but has noted am hypertension. Will add an additional 5 mgof amlodipine to be taken each evening to address his morning hypertension. I am reluctant to starta beta-ricardo due to resting bradycardia and low heart rate with prior beta-ricardo use. ?? Obesity Obesity remains an issue. I reinforced the need for a heart healthy diet and a focus on weight reduction. Since his last visit, Mr. Rosenthal has been stable from a cardiac standpoint. Very rare flutters, no angina, no change in breathing pattern (SOB with exertion). He continues to olmstead obesity. He sees the dentist regularly and takes antibiotics just prior. No fevers/sweats. He last had labs performed last week at PCP's office (he has not yet heard the results). He is compliant with medications. Review of Systems Constitutional: Positive for fatigue. Respiratory: Positive for cough. Cardiovascular: Negative. Gastrointestinal: Negative. Endocrine: Negative. Genitourinary: Negative. Neurological: Negative. Hematological: Negative. Family history: no known valve disease in the family ?? 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 HENT: Head: Normocephalic. Neck: Neck supple. No JVD present. Cardiovascular: Normal rate, regular rhythm and intact distal pulses. Exam reveals no friction rub. Mid-sternal scar, well-healed; KANIKA at base. Pulmonary/Chest: Effort normal. Abdominal: Soft. Musculoskeletal: Normal range of motion. Neurological: He is alert. Skin: Skin is warm. Most Recent Vitals: 02/21/18 1004 BP: 128/80 Pulse: 54 SpO2: 96% Recent Results (from the past 72 hour(s)) EKG 12 Lead Result Value Ventricular rate 51 Atrial Rate 51 P-R Interval 178 QRS Duration 100 Q-T Interval 448 QTC Calculated (Bezet) 412 Calculated P Trinity 34 Calculated R Trinity 37 Calculated T Trinity 135 INTERPRETATION Sinus bradycardia Occasional Premature ventricular complexes ST & T wave abnormality, consider lateral ischemia Abnormal ECG When compared with ECG of 06-JUL-2016 10:12, Premature ventricular complexes are now Present Echo 07/06/2016: SUMMARY: 1. Mild concentric left ventricular hypertrophy is observed. There is normal global left ventricular systolic function. Ejection fraction is estimated to be 65%. There are no left ventricular segmental wall motion abnormalities. 2. The right ventricle is probably normal in size. Right ventricular global systolic function is normal. 3. A bovine bio-prosthetic aortic valve is present. The mean trans-valvular gradient across the aortic valve is 15 mmHg. The bio-prosthetic aortic valve appears well seated with normal function. There is no prosthetic aortic valve regurgitation present. ?? 4. The estimated pulmonary artery systolic pressure is 26 mmHg. 5. When compared with study dated 2013, no significant change was found. 6. See remainder of report for additional findings. ? Findings : ? Left Ventricle: The left ventricular chamber size is normal. Mild concentric left ventricular hypertrophy is observed. There is normal global left ventricular systolic function. Ejection fraction is estimated to be 65%. There are no left ventricular segmental wall motion abnormalities. Doppler assessment is consistent with normal left sided filling pressure. ? Left Atrium: The left atrium is normal in size.(33 ml/m2) ? Right Ventricle: The right ventricle is probably normal in size. Right ventricular global systolic function is normal. The estimated pulmonary artery systolic pressure is 26 mmHg. The estimated right atrial pressure is 3 mmHg. ? Right Atrium: The right atrium appears normal. ? Aortic Valve: The peak instantaneous trans-valvular gradient across ?? the aortic valve is 29 mmHg. The mean trans-valvular gradient across the aortic valve is 15 mmHg. The size of the prosthetic aortic valve is 25mm. The prosthetic aortic valve was implanted on 09/02/2013. A bovine bio-prosthetic aortic valve is present. The bio-prosthetic aortic valve appears well seated with normal function. There is no prosthetic aortic valve regurgitation present. ? Mitral Valve: The mitral valve appears normal in structure and function. There is mild (1+/4+) mitral regurgitation present. ? Tricuspid Valve: The tricuspid valve appears normal in structure and function. There is trace tricuspid regurgitation present. ? Pulmonic Valve: The pulmonic valve appears normal in structure and function. There is trace pulmonic regurgitation present. ? Pericardium: The pericardium appears normal and there is no evidence of a pericardial effusion. ? Aorta: The aortic root is normal in size. The ascending aorta is normal in size. ? Pulmonary Artery: The main pulmonary artery appears normal. ? Venous: The inferior vena cava appears normal in size. There is a greater than 50% respiratory change in the inferior vena cava dimension. ?? Echo 2014: SUMMARY: 1. Mild concentric left ventricular hypertrophy is observed. There is normal global left ventricular systolic function. Ejection fraction is estimated to be 65%. There are no left ventricular segmental wall motion abnormalities. 2. The left atrium is mildly dilated. 3. The bio-prosthetic aortic valve appears well seated with normal function. The prosthetic aortic valve was implanted on 09/02/2013. The size of the prosthetic aortic valve is 25mm. The mean trans-valvular gradient across the aortic valve is 11 mmHg. There is no prosthetic aortic valve regurgitation present. 4. See remainder of report for additional findings. ? FINDINGS: ? Left Ventricle The left ventricular chamber size is normal. Mild concentric left ventricular hypertrophy is observed. Basal septal hypertrophy is observed. There is no evidence of LVOT obstruction. There is normal global left ventricular systolic function. Ejection fraction is estimated to be 65%. There are no left ventricular segmental wall motion abnormalities. Left sided filling pressure could not be assessed by Doppler. A false chord is observed in the left ventricle. ? Left Atrium The left atrium is mildly dilated. ? Right Ventricle The right ventricle is normal in size. Right ventricular global systolic function is normal. Pulmonary artery hypertension could not be assessed due to inadequate tricuspid regurgitation jet. ? Right Atrium The right atrium is mildly dilated. ? Aortic Valve The mean trans-valvular gradient across the aortic valve is 11 mmHg. The size of the prosthetic aortic valve is 25mm. The prosthetic aortic valve was implanted on 09/02/2013. A bovine bio-prosthetic aortic valve is present. The bio-prosthetic aortic valve appears well seated with normal function. There is no prosthetic aortic valve regurgitation present. ? Mitral Valve The mitral valve appears normal in structure and function. There is trace mitral regurgitation present. ? Tricuspid Valve The tricuspid valve appears normal in structure and function. There is trace tricuspid regurgitation present. ? Pulmonic Valve The pulmonic valve appears normal in structure and function. There is trace pulmonic regurgitation present. ? Pericardium The pericardium appears normal and there is no evidence of a pericardial effusion. ? Aorta The aortic root is normal in size. The ascending aorta is normal in size. ? Pulmonary Artery The main pulmonary artery appears normal. ? Venous The inferior vena cava appears normal in size. There is a greater than 50% respiratory change in the inferior vena cava dimension. Results for IRVING ROSENTHAL ( ) as of 02/19/2018 10:45 Ref. Range 08/14/2017 10:06 WBC Latest Ref [...] Ref Range: 0.0 - 0.1 x10(3)/mcL 0.1 Sed Rate Latest Ref Range: 0 - 15 mm/hr 7 Sodium Latest Ref Range: 135 - 145 mmol/L 142 Potassium Latest Ref Range: 3.5 - 5.0 mmol/L 4.0 Chloride Latest Ref Range: 98 - 107 mmol/L 102 CO2 Latest Ref Range: 22 - 31 mmol/L 27 Anion Gap Latest Ref Range: 5 - 15 mmol/L 13 BUN Latest Ref Range: 10 - 20 mg/dL 26 (H) Creatinine Latest Ref Range: 0.80 - 1.50 mg/dL 1.49 Estimated GFR Latest Ref Range: >=60 47 (L) Glucose Lvl Latest Ref Range: 65 - 199 mg/dL 131 Calcium Latest Ref Range: 8.5 - 10.5 mg/dL 9.7 Total Protein Latest Ref Range: 6.1 - 8.0 gm/dL 7.1 Albumin Latest Ref Range: 3.2 - 5.2 gm/dL 4.3 Total Bilirubin Latest Ref Range: 0.2 - 1.3 mg/dL 0.3 Alk Phos Latest Ref Range: 40 - 120 unit/L 31 (L) AST Latest Ref Range: 0 - 39 unit/L 29 ALT Latest Ref Range: 0 - 55 unit/L 34 CRP Latest Ref Range: <=4.9 mg/L 4.6 EKG: Sinus bradycardia Incomplete left bundle block T wave abnormality, consider lateral ischemia Abnormal ECG When compared with ECG of 06-OCT-2013 10:38, T wave inversion no longer evident in Inferior leads T wave inversion no longer evident in Anterior leads Confirmed by MD ELIAS ARMIN ([id number]) on 07/06/2016 10:01:30 PM Assessment and Plan: (aortic stenosis) S/p tissue AVR. Doing well. Continue with antibiotic prophylaxis prior to dental work. Will get repeat echocardiogram. CAD (coronary artery disease) Secondary prevention with diet/exercise/weight control. He understands the importance of weight management. Continue with aspirin, BP control and statin therapy. He seems to be tolerating the low-dose statin. Reluctant to increase dosage given prior issues with statins. HTN (hypertension) Mr. Rosenthal is on numerous BP medications; BP seems to be well-controlled in the office today and at home. He remains bradycardic at rest (not on bblocker). Hyperlipidemia He has had some intolerance to statin (Lipitor), but seems to be tolerating Crestor. Obesity Obesity remains a central issue. I reinforced the need for a heart healthy diet and a focus on weight reduction. Bradycardia Asymptomatic. Not on bblocker. Continue to monitor. Thank you for the opportunity to participate in this patient's cardiovascular care. All questions were answered and I look forward to the next visit in one year. I will be in touch once I have his echo data. Irving Graham MD documented in this encounter Miscellaneous Notes * Assessment & Plan Note - Irving Graham MD - 02/21/2018 10:26 AM EDT Associated Problem(s): Bradycardia Asymptomatic. Not on bblocker. Continue to monitor. * Assessment & Plan Note - Irving Graham MD - 02/21/2018 10:22 AM EDT Associated Problem(s): Obesity Obesity remains a central issue. I reinforced the need for a heart healthy diet and a focus on weight reduction. * Assessment & Plan Note - Irving Graham MD - 02/21/2018 10:22 AM EDT Associated Problem(s): Hyperlipidemia He has had some intolerance to statin (Lipitor), but seems to be tolerating Crestor. * Assessment & Plan Note - Irving Graham MD - 02/21/2018 10:21 AM EDT Associated Problem(s): HTN (hypertension) Mr. Rosenthal is on numerous BP medications; BP seems to be well-controlled in the office today and at home. He remains bradycardic at rest (not on bblocker). * Assessment & Plan Note - Irving Graham MD - 02/21/2018 10:20 AM EDT Associated Problem(s): CAD (coronary artery disease) Secondary prevention with diet/exercise/weight control. He understands the importance of weight management. Continue with aspirin, BP control and statin therapy. He seems to be tolerating the low-dose statin. Reluctant to increase dosage given prior issues with statins. * Assessment & Plan Note - Irving Graham MD - 02/21/2018 10:19 AM EDT Associated Problem(s): Nonrheumatic aortic (valve) stenosis S/p tissue AVR. Doing well. Continue with antibiotic prophylaxis prior to dental work. Will get repeat echocardiogram. documented in this encounter Plan of Treatment Upcoming Encounters Date Type Department Care Team (Late st Contact Info) Description 12/18/2024 2:00 PM EDT Office Visit Dermatology at [address] [phone] Joyce Snyder MD [facility] [place] [address] Scheduled Orders Name Type Priority Associated Diagnoses Orde r Schedule EKG 12 Lead ECG Routine Coronary artery disease involving deering coronary artery of deering heart without angina pectoris Ordered: 02/19/2018 documented as of this encounter Goals Goal Patient Goal Type Associated Problems Recent Progress Patient-Stated? Author DH Home Medication Compliance and Understanding Patient Facing Action Plan On track( 018 9:29 AM EST) No Jono Reed, [facility] Note: Patient's specific desired goal: Reduction in psoriasis patches and psoriatic arthritis pain / symptoms. Measured by: pain scale, joints affected, BSA affected by psoriasis Time-frame to meet goal: ongoing - mostly effective at this time documented as of this encounter Procedures Procedure Name Priority Date/Time Associated Diagnosis Comments EKG 12-LEAD Routine 02/21/2018 10:13 AM EDT Coronary artery disease involving deering coronary artery of deering heart without angina pectoris documented in this encounter Results * ECHO COMPLETE (03/07/2018 9:41 AM EDT) EF 65 [facility] SYSTEM Anatomical Region Laterality Modality Other 03/07/2018 Narrative 03/07/2018 10:08 AM EDT Procedure: ?Transthoracic Echocardiogram Patient: ?KARLA Maldonado ? (Age): 1945(72y) Med Rec#: ? [id number] ?Sex: ?M ? [facility] Loc: ? [facility] ?Ht / Wt: ??178(cm)/146(kg) Pt. Loc: ?Echo Lab ?BSA: ?2.56 Study Date: ?? 03/07/2018 ?Pt. Type: Outpatient Tape: ? Referring: Irving Graham ([id number]) Reading: Lan Saravia ([id number]) Rn Maternity: Jacob Rayo [facility] Diagnosis: *ICD-10-PCS Nonrheumatic aortic (valve) stenosis (I35.0) Rhythm: ? NSR BP: ? 148/58 SUMMARY: 1. Normal biventricular size and systolic function, LVEF65%. No wall motion abnormalities. Normal LV wall thickness. Doppler interrogation is consistent with normal LV filling pressure. 2. Normal atrial size. 3. There is a bioprosthetic AVR present - mean dututewx21 mmHg. No AR. 4. Other findings as noted below. 5. Compared to prior echo performed Jun 2016, there is no significant change. Findings ? : Left Ventricle: ? The left ventricular chamber size is normal. ?Mild concentric left ventricular hypertrophy is observed. ?There is normal global left ventricular systolic function. ??Ejection fraction is estimated to be 65%. ?There are no left ventricular segmental wall motion abnormalities. ?Doppler assessment is consistent with normal left sided filling pressure. Left Atrium: ? The left atrium is normal in size.(33 ml/m2) Right Ventricle: ? The right ventricle is probably normal in size. ?Right ventricular global systolic function is normal. ?The estimated pulmonary artery systolic pressure is 35 mmHg. ?The estimated right atrial pressure is 3 mmHg. Right Atrium: ? The right atrium appears normal. Aortic Valve: ? The peak instantaneous trans-valvular gradient across the aortic valve is 31 mmHg. ?The mean trans-valvular gradient across ??the aortic valve is 17 mmHg. ?The size of the prosthetic aortic valve is 25mm. ?The prosthetic aortic valve was implanted on 09/02/2013. ?A bovine bio-prosthetic aortic valve is present. ?The bio-prosthetic aortic valve appears well seated with normal function. ?There is no prosthetic aortic valve regurgitation present. Mitral Valve: ? The mitral valve appears normal in structure and function. ?There is trace mitral regurgitation present. Tricuspid Valve: ? The tricuspid valve appears normal in structure and function. ?There is trace tricuspid regurgitation present. Pulmonic Valve: ? The pulmonic valve appears normal in structure and function. ?There is trace pulmonic regurgitation present. Pericardium: ? The pericardium appears normal and there is no evidence of a pericardial effusion. Aorta: ? There is mild dilatation of the aortic root. ?The ascending aorta was not well visualized. Pulmonary Artery: ? The main pulmonary artery appears normal. Venous: ? The inferior vena cava appears normal in size. ?There is a greater than 50% respiratory change in the inferior vena cava dimension. Misc: ? See remainder of report for additional findings. ?Two-dimensional echo, spectral Doppler and color Doppler performed. Chambers 2D ?Value ?Units (Range) ? IVSd (2D) ? 1.5 ?cm ? LVPWd (2D) ?1.4 ?cm ? IVS:LVPW ratio (2D) 1.1 ?ratio ? RWT (2D) ?0.6 ?ratio ? RWT PW (2D) ? 0.6 ?ratio ? LVIDd (2D) ?5 ?cm ? LVIDs (2D) ?3 ?cm ? LVIDd (2D) index ?1.9 ?cm/m2 ? LVIDs (2D) index ?1.2 ?cm/m2 ? LV FS (2D) ?39 ? % ? EF Teichholz (2D) ?? 69 ? % ? Ao root diameter (2D3.6 ?cm (2.1 - 3.6) ? Volumes/Mass ?Value ?Units (Range) ? LA Area 4 CH ?22.9 ? cm2 (<21) ? LA ESV BP (A/L) inde36.2 ? ml/m2 ? RA AREA 4CH ? 18.4 ? cm2 ? LV mass (2D) ?311.5 ?g ? LV mass (2D) index ??121.7 ?g/m2 ? Diastolic/Systolic Function ?Value ?Units (Range) ? MV E-wave Vmax ?1.1 ?m/sec ? MV deceleration [id number] ?msec ? MV A-wave Vmax ?0.3 ?m/sec ? MV E:A ratio ?3.6 ?ratio ? LV septal e' Vmax ?? 0.1 ?m/sec ? LV lateral e' Vmax ??0.1 ?m/sec ? LV average e' Vmax ??0.1 ?m/sec ? LV E:e' septal ratio13.9 ? ratio ? LV E:e' lateral rati10.1 ? ratio ? LV average E:e' rati11.1 ? ratio ? Aortic Valve ?Value ?Units (Range) ? AV Vmax ? 2.8 ?m/sec ? AV VTI ?68.6 ? cm ? AV peak gradient ?31 ? mmHg ? AV mean gradient ?17 ? mmHg ? LVOT Vmax ? 1.1 ?m/sec ? LVOT VTI ?26.6 ? cm ? LVOT peak gradient ??5.2 ?mmHg ? LVOT mean gradient ??2.8 ?mmHg ? DOI (VTI) ? 0.4 ?ratio ? DOI (Vmax) ?0.4 ?ratio ? Tricuspid Valve ?Value ?Units (Range) ? TR Vmax ? 2.8 ?m/sec ? TR peak gradient ?32.1 ? mmHg ? RAP ? 3 ?mmHg ? RVSP ?35 ? mmHg ? Wall Motion: Segment Name ?Rest ? Base-Anteroseptal ?? Normal ? Base-Anterior ? Normal ? Base-Anterolateral ??Normal ? Base-Posterolateral Normal ? Base-Inferior ? Normal ? Base-Inferoseptal ?? Normal ? Mid-Anteroseptal ?Normal ? Mid-Anterior ?Normal ? Mid-Anterolateral ?? Normal ? Mid-Posterolateral ??Normal ? Mid-Inferior ?Normal ? Mid-Inferoseptal ?Normal ? [place]-Septal ? Normal ? [place]-Anterior ? Normal ? [place]-Lateral ?Normal ? [place]-Inferior ? Normal ? [place]-Tip ?Normal ? This report has been electronically signed by: Lan Saravia MD ? 03/07/2018 10:07:18 Images reviewed and interpretation verified [facility] Cardiac Ultrasound [facility] Procedure Note Lan Saravia MD - 03/07/2018 Procedure: Transthoracic Echocardiogram Patient: KARLA Maldonado (Age): 1945(72y) Med Rec#: [id number] Sex: M [place] Loc[place] [facility] Ht / Wt: 178(cm)/146(kg) Pt. Loc: Echo Lab BSA: 2.56 Study Date: 03/07/2018 Pt. Type: Outpatient Tape: Referring: Irving Graham ([id number]) Reading: Lan Saravia ([id number]) Rn Maternity: Jacob Rayo [facility] Diagnosis: *ICD-10-PCS Nonrheumatic aortic (valve) stenosis (I35.0) Rhythm: NSR BP: 148/58 SUMMARY: 1. Normal biventricular size and systolic function, LVEF65%. No wall motion abnormalities. Normal LV wall thickness. Doppler interrogation is consistent with normal LV filling pressure. 2. Normal atrial size. 3. There is a bioprosthetic AVR present - mean khiweimw41 mmHg. No AR. 4. Other findings as noted below. 5. Compared to prior echo performed Jun 2016, there is no significant change. Findings : Left Ventricle: The left ventricular chamber size is normal. Mild concentric left ventricular hypertrophy is observed. There is normal global left ventricular systolic function. Ejection fraction is estimated to be 65%. There are no left ventricular segmental wall motion abnormalities. Doppler assessment is consistent with normal left sided filling pressure. Left Atrium: The left atrium is normal in size.(33 ml/m2) Right Ventricle: The right ventricle is probably normal in size. Right ventricular global systolic function is normal. The estimated pulmonary artery systolic pressure is 35 mmHg. The estimated right atrial pressure is 3 mmHg. Right Atrium: The right atrium appears normal. Aortic Valve: The peak instantaneous trans-valvular gradient [...] is no prosthetic aortic valve regurgitation present. Mitral Valve: The mitral valve appears normal in structure and function. There is trace mitral regurgitation present. Tricuspid Valve: The tricuspid valve appears normal in structure and function. There is trace tricuspid regurgitation present. Pulmonic Valve: The pulmonic valve appears normal in structure and function. There is trace pulmonic regurgitation present. Pericardium: The pericardium appears normal and there is no evidence of a pericardial effusion. Aorta: There is mild dilatation of the aortic root. The ascending aorta was not well visualized. Pulmonary Artery: The main pulmonary artery appears normal. Venous: The inferior vena cava appears normal in size. There is a greater than 50% respiratory change in the inferior vena cava dimension. Misc: See remainder of report for additional findings. Two-dimensional echo, spectral Doppler and color Doppler performed. Chambers 2D Value Units (Range) IVSd (2D) 1.5 cm LVPWd (2D) 1.4 cm IVS:LVPW ratio (2D) 1.1 ratio RWT (2D) 0.6 ratio RWT PW (2D) 0.6 ratio LVIDd (2D) 5 cm LVIDs (2D) 3 cm LVIDd (2D) index 1.9 cm/m2 LVIDs (2D) index 1.2 cm/m2 LV FS (2D) 39 % EF Teichholz (2D) 69 % Ao root diameter (2D3.6 cm (2.1 - 3.6) Volumes/Mass Value Units (Range) LA Area 4 CH 22.9 cm2 (<21) LA ESV BP (A/L) inde36.2 ml/m2 RA AREA 4CH 18.4 cm2 LV mass (2D) 311.5 g LV mass (2D) index 121.7 g/m2 Diastolic/Systolic Function Value Units (Range) MV E-wave Vmax 1.1 m/sec MV deceleration [id number] msec MV A-wave Vmax 0.3 m/sec MV E:A ratio 3.6 ratio LV septal e' Vmax 0.1 m/sec LV lateral e' Vmax 0.1 m/sec LV average e' Vmax 0.1 m/sec LV E:e' septal ratio13.9 ratio LV E:e' lateral rati10.1 ratio LV average E:e' rati11.1 ratio Aortic Valve Value Units (Range) AV Vmax 2.8 m/sec AV VTI 68.6 cm AV peak gradient 31 mmHg AV mean gradient 17 mmHg LVOT Vmax 1.1 m/sec LVOT VTI 26.6 cm LVOT peak gradient 5.2 mmHg LVOT mean gradient 2.8 mmHg DOI (VTI) 0.4 ratio DOI (Vmax) 0.4 ratio Tricuspid Valve Value Units (Range) TR Vmax 2.8 m/sec TR peak gradient 32.1 mmHg RAP 3 mmHg RVSP 35 mmHg Wall Motion: Segment Name Rest Base-Anteroseptal Normal Base-Anterior Normal Base-Anterolateral Normal Base-Posterolateral Normal Base-Inferior Normal Base-Inferoseptal Normal Mid-Anteroseptal Normal Mid-Anterior Normal Mid-Anterolateral Normal Mid-Posterolateral Normal Mid-Inferior Normal Mid-Inferoseptal Normal [place]-Septal Normal [place]-Anterior Normal [place]-Lateral Normal [place]-Inferior Normal [place]-Tip Normal This report has been electronically signed by: Lan Saravia MD 03/07/2018 10:07:18 Images reviewed and interpretation verified [facility]iac Ultrasound [facility] Irving Graham MD ECHO ORDERABLES * EKG 12 Lead (02/21/2018 10:13 AM EDT) Ventricular rate 51 BPM MUSE SYSTEM Atrial Rate 51 BPM MUSE SYSTEM P-R Interval 178 ms MUSE SYSTEM QRS Duration 100 ms MUSE SYSTEM Q-T Interval 448 ms MUSE SYSTEM QTC Calculated (Bezet) 412 ms MUSE SYSTEM Calculated P Trinity 34 degrees MUSE SYSTEM Calculated R Trinity 37 degrees MUSE SYSTEM Calculated T Trinity 135 degrees MUSE SYSTEM INTERPRETATION Sinus bradycardia Occasional Premature ventricular complexes ST & T wave abnormality, consider lateral ischemia Abnormal ECG When compared with ECG of 06-JUL-2016 10:12, Premature ventricular complexes are now Present Confirmed by fellow MD Roslyn, Willa Baker ([id number]) on 02/21/2018 1:04:54 PM Confirmed by MD Danielle, Ezekiel ([id number]) on 02/21/2018 3:07:42 PM MUSE SYSTEM 02/21/2018 10:1 3 AM EDT 02/21/2018 3:07 PM EDT Irving Graham MD ECG ORDERABLES MUSE SYSTEM documented in this encounter Visit Diagnoses Diagnosis 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
--- OUTSIDE RECORDS SUMMARY | 2024-09-23 14:21 | XMS_ITS | Encounter Summary ---
Author Organization [facility] [place] [address] Care Team Providers Care Silicator Name Role Phone Carlos Hernandez DO Primary Care Provider Reason for Referral * Diagnostic Test (Routine) - Closed Specialty Diagnoses / Procedures Referred By Guanaco marie Referred To Contact Cardiology Diagnoses Nonrheumatic aortic valve stenosis Procedures Echocardiogram Transthoracic(Leb) Raghu Graham MD [facility] [place] [address] [facility] [place] [address] Referral ID Status Reason Start Date Expiration Date V isits Requested Visits Authorized [id number] Closed Specialty Service Requested 02/21/2018 02/21/2019 1 1 Reason for Visit * Diagnostic Test (Routine) - Closed Specialty Diagnoses / Procedures Referred By Guanaco marie Referred To Contact Cardiology Diagnoses Nonrheumatic aortic valve stenosis Procedures Echocardiogram Transthoracic(Leb) Raghu Graham MD [facility] [place] [address] [facility] [place] [address] Referral ID Status Reason Start Date Expiration Date V isits Requested Visits Authorized [id number] Closed Specialty Service Requested 02/21/2018 02/21/2019 1 1 Encounter Details Date Type Department Care Team (Latest Contact Info) Description 03/07/2018 8:46 AM EDT - 03/07/2018 11:59 PM EDT Hospital Encounter Non-Invasive [place] [address] Raghu Graham MD Nonrheumatic aortic valve stenosis Discharge Disposition: Home Social History Tobacco Use [...] 150 mg by mouth 2 times daily. amLODIPine (NORVASC) 5 mg TabletIndications:Esse ntial hypertension [...] lungs daily. 05/22/2019 mometasone (NASONEX) 50 mcg/actuation [place], Non-AerosolIndications :as needed 1 spray by Each [...] 2:00 PM EDT Office Visit Dermatology at [facility] [address] [place] [address] Joyce Snyder MD [facility] [place] [address] documented as of this encounter Goals Goal Patient Goal Type Associated Problems Recent Progress Patient-Stated? Author DH Home Medication Compliance and Understanding Patient Facing Action Plan On track( 018 9:29 AM EST) No Jono Reed, [facility] Note: Patient's specific desired goal: Reduction in psoriasis patches and psoriatic arthritis pain / symptoms. Measured by: pain scale, joints affected, BSA affected by psoriasis Time-frame to meet goal: ongoing - mostly effective at this time documented as of this encounter Procedures Procedure Name Priority Date/Time Associated Diagnosis Comments ECHO COMPLETE Routine 03/07/2018 9:41 AM EDT Nonrheumatic aortic valve stenosis documented in this encounter Results * ECHO COMPLETE (03/07/2018 9:41 AM EDT) EF 65 HEARTLAB SYSTEM Anatomical Region Laterality Modality Other 03/07/2018 Narrative 03/07/2018 10:08 AM EDT Procedure: ?Transthoracic Echocardiogram Patient: ?KARLA VILLATORO W ? (Age): 1945(72y) Med Rec#: ? [id number] ?Sex: ?M ? Site Loc: ? [facility] ?Ht / Wt: ??178(cm)/146(kg) Pt. Loc: ?Echo Lab ?BSA: ?2.56 Study Date: ?? 03/07/2018 ?Pt. Type: Outpatient Tape: ? Referring: Raghu Graham ([id number]) Reading: Lan Saravia ([id number]) Yard General Car Supervisor: Ornatowski,Jacob T, RDCS Diagnosis: *ICD-10-PCS Nonrheumatic aortic (valve) stenosis (I35.0) Rhythm: ? NSR BP: ? 148/58 SUMMARY: 1. Normal biventricular size and systolic function, LVEF65%. No wall motion abnormalities. Normal LV wall thickness. Doppler interrogation is consistent with normal LV filling pressure. 2. Normal atrial size. 3. There is a bioprosthetic AVR present - mean [id number] mmHg. No AR. 4. Other findings as [...] E-wave Vmax ?1.1 ?m/sec ? MV deceleration [id number] ?msec ? MV A-wave Vmax ?0.3 ?m/sec [...] ? Mid-Inferior ?Normal ? Mid-Inferoseptal ?Normal ? [place]-Septal ? Normal ? [place]-Anterior ? Normal ? [place]-Lateral ?Normal ? [place]-Inferior ? Normal ? [place]-Tip ?Normal ? This report has been electronically signed by: Lan Saravia MD ? 03/07/2018 10:07:18 Images reviewed and interpretation verified [facility] Cardiac Ultrasound Laboratory Procedure Note Lan Saravia MD - 03/07/2018 Procedure: Transthoracic Echocardiogram Patient: KARLA Maldonado (Age): 1945(72y) Med Rec#: [id number] Sex: M Site Loc: [facility] Ht / Wt: 178(cm)/146(kg) Pt. Loc: Echo Lab BSA: 2.56 Study Date: 03/07/2018 Pt. Type: Outpatient Tape: Referring: Raghu Graham ([id number]) Reading: Lan Saravia ([id number]) Yard General Car Supervisor: Jacob Rayo JUDITH Diagnosis: *ICD-10-PCS Nonrheumatic aortic (valve) stenosis (I35.0) Rhythm: NSR BP: 148/58 SUMMARY: 1. Normal biventricular size and systolic function, LVEF65%. No wall motion abnormalities. Normal LV wall thickness. Doppler interrogation is consistent with normal LV filling pressure. 2. Normal atrial size. 3. There is a bioprosthetic AVR present - mean mmHg. No AR. 4. Other findings as [...] MV E-wave Vmax 1.1 m/sec MV deceleration [id number] msec MV A-wave Vmax 0.3 m/sec MV [...] Normal Mid-Posterolateral Normal Mid-Inferior Normal Mid-Inferoseptal Normal [place]-Septal Normal [place]-Anterior Normal [place]-Lateral Normal [place]-Inferior Normal [place]-Tip Normal This report has been electronically signed by: Lan Saravia MD 03/07/2018 10:07:18 Images reviewed and interpretation verified [facility] Cardiac Ultrasound Laboratory Raghu Graham MD ECHO ORDERABLES documented in this encounter Visit Diagnoses Diagnosis Nonrheumatic aortic valve stenosis Aortic valve disorders documented in this encounter Care Teams Silicator Relationship Specialty Start Date End Date Carlos Hernandez DO [address] [place] [address] PCP - General 08/16/10 02/25/23 documented as of this encounter
--- OUTSIDE RECORDS SUMMARY | 2024-09-23 14:21 | XMS_ITS | Encounter Summary ---
Author Organization [facility] [place] [address] Care Team Providers Care Machine Tool Rebuilder Name Role Phone Carlos Hernandez DO Primary Care Provider Reason for Visit * Reason Comments Medication Management Encounter Details Date Type Department Care Team (Late st Contact Info) Description 04/24/2019 Specialty [place] [phone] Mitchell Berumen RPH Social History Tobacco Use [...] Progress Notes * Mitchell Berumen RPH - 04/24/2019 1:33 PM EDT Clinical Management Plan: Refill Specialty Pharmacy Consultation; Mitchell Berumen RPH Comprehensive Medication Management (CMM) Raghu Rosenthal Mr. Raghu Rosenthal is a 73 y.o. (1945) male who was contacted in regard to a specialty medication refill reminder. Spoke with patient's regarding Cosentyx. A review of the medication therapy was performed. The medication was Refilled as scheduled, and all medication related questions and concerns were addressed. The specialty pharmacy staff will follow up with the patient 5-7 days prior to next refill. This patient was opted out of the six-month clinical follow-up assessment as patient's agent questioned the need for follow-up as the patient is doing fine. We will attempt outreach for this purpose again in about six months time. Was a change made to the Care Plan: no Assessment and Recommendations: Title Cognitive Ability: good [...] Venom-Honey Bee Medication Reconciliation Discrepancies (compared to [facility] med list) - none New medications: no New medical conditions: no New allergies: no Adherence: Medication Adherence Adherence tools used: calendar, directed education Support network for adherence: family member Are you experiencing any side effects from your medications? no Pt understands no changes to current drug regimen were made at the appointment and that [facility] is providing recommendations (summary located at top of note) for provider review and follow up. Mitchell Berumen RPH 04/24/19 1:33 PM documented in this encounter Plan of Treatment Upcoming Encounters Date Type Department Care Team (Late st Contact Info) Description 12/18/2024 2:00 PM EDT Office Visit Dermatology at [place] [address] [place] [phone] Joyce Snyder MD [facility] [place] [address] documented as of this encounter Goals Goal [...] on filedocumented in this encounter Care Teams Machine Tool Rebuilder Relationship Specialty Start Date End Date Carlos Hernandez DO [address] [place] [address] PCP - General 08/16/10 02/25/23 documented as of this encounter
--- OUTSIDE RECORDS SUMMARY | 2024-09-23 14:21 | XMS_ITS | Encounter Summary ---
Author Organization [facility] [place] [address] Care Team Providers Care Horse Buyer Name Role Phone Carlos Hernandez DO Primary Care Provider Reason for Visit * Reason Comments Medication Refill Encounter Details Date Type Department Care Team (Late st Contact Info) Description 05/15/2017 Specialty Pharmacy [place] [phone] Jono Reed Chanell Social History Tobacco Use Types Packs/Day Years [...] Progress Notes * Jono Reed RPH - 05/15/2017 3:34 PM EDT Clinical Management Plan: Refill Specialty Pharmacy Consultation; Jono Reed RPH Comprehensive Medication Management (CMM) Raghu Joel Ariadna Mr. Raghu Rosenthal is a 71 y.o. [...] chronic disease management Recipient: beneficiary Visit type: follow-up Method of contact: by telephone Cognitive ability: good Patient Counseling Counseled the patient on the following: possible adverse effects and management discussed, cost of medications and cost implications discussed Medication Management Summary Topics discussed: possible adverse effects and management discussed, cost of medications and cost implications discussed Number of adverse drug events identified: 0 Time spent: 1-15 min Appropriate therapy: yes New medications: no New medical conditions: no New allergies: no Adherence: Medication Adherence Patient reported X missed doses in the last month: 0 Any gaps in refill history greater than 2 weeks in the last 3 months: no Demonstrates understanding of importance of adherence: yes Informant: patient Reliability of informant: reliable Provider-estimated medication adherence level: 90-100% Are you experiencing any side effects from your medications? no Pt understands no changes to current drug regimen were made at the appointment and that [facility] is providing recommendations (summary located at top of note) for provider review and follow up. Jono Reed RPH 05/15/17 3:36 PM documented in this encounter Plan of Treatment Upcoming Encounters Date Type Department Care Team (Late st Contact Info) Description 12/18/2024 2:00 PM EDT Office Visit Dermatology at [address] [phone] Joyce Snyder MD [facility] [place] [address] documented as of this encounter Goals Goal [...] on filedocumented in this encounter Care Teams Horse Buyer Relationship Specialty Start Date End Date Carlos Hernandez DO [address] [place] [address] PCP - General 08/16/10 02/25/23 documented as of this encounter
--- OUTSIDE RECORDS SUMMARY | 2024-09-23 14:21 | XMS_ITS | Encounter Summary ---
Author Organization [facility] Address [facility] [place] [address] Care Team Providers Care Feed In Worker Name Role Phone Carlos Hernandez DO Primary Care Provider Encounter Details Date Type Department Care Team (Latest Contact Info) Description 10/08/2018 12:30 PM EST [place] [address] Lan Singh MD [facility] [place] [address] Primary osteoarthritis of both knees Social History Tobacco Use Types Packs/Day Years [...] Sign Reading Time Taken Comments Blood Pressure 126/55 10/08/2018 12:05 PM EST Pulse 62 10/08/2018 12:05 PM EST Temperature 36.7 ??C (98.1 ??F) 10/08/2018 12:[address] Respiratory Rate - - Oxygen Saturation 97% 10/08/2018 12:05 PM EST Inhaled Oxygen Concentration - - Weight 145.6 kg (321 lb) 10/08/2018 12:05 PM EST Height 177.8 cm (5' 10) 10/08/2018 12:05 PM EST Body Mass Index 46.06 10/08/2018 12:05 PM EST documented in this encounter Progress Notes * Lan Singh MD - 10/08/2018 12:30 PM EST Is a follow-up appointment for Raghu??Ariadna?? date [...] on??cosentyx??for psoriasis and psoriatic arthritis with excellent control His major complaints of bilateral knee pain the right knee injection I gave him in June was helpful but it has now worn off and he wants to enjoy himself when he goes to [place] which includes walking as well as boating on the [facility] He is requesting bilateral knee injections for osteoarthritis of the knee. Because he cannot use nonsteroidals I think that it would be best to maintain him on injections until he needs knee replacement On exam he is healthy appearing massively overweight His blood pressure is 126/55 pulse of 62 pulse ox of 97 temp of 98 his height is 70 inches his weight is 321 his BMI is 46 his HEENT exam he has normal conjunctiva and sclera his chest is clear heartexam is unremarkable his extremities he has OA changes in his hands but there are mild both knees he has crepitance no effusions and they are non-warm Radiographs of his knees confirm osteoarthritis he has an osteochondral lesion but I do not think that it is necessary to further evaluate it at this point in time I injected both of his knees with 20 mg of Kenalog and 3 cc of Xylocaine without complications Informed consent was obtained after a discussion of the nature of the procedure, its risks, benefits and possible alternatives. Immediately prior to the start of the procedure a time out was taken: - The patient's identity was confirmed using two identifiers - The intended procedure, patient positioning and availability of all required equipment was also confirmed. - The proper site(s)/side(s) was/were confirmed by visualization with the patient. Since he had labs in June I do not think they are necessary to do them now however I do them when he returns in January documented in this encounter Plan of Treatment Upcoming Encounters Date Type Department Care Team (Late st Contact Info) Description 12/18/2024 2:00 PM EDT Office Visit Dermatology at [facility] [address] [place] [address] Joyce Snyder MD [facility] [place] [address] documented as of this encounter Goals Goal Patient Goal Type Associated Problems Recent Progress Patient-Stated? Author DH Home Medication Compliance and Understanding Patient Facing Action Plan On track( 018 9:29 AM EST) No Jono Reed, [facility] Note: Patient's specific desired goal: Reduction in psoriasis patches and psoriatic arthritis pain / symptoms. Measured by: pain scale, joints affected, BSA affected by psoriasis Time-frame to meet goal: ongoing - mostly effective at this time documented as of this encounter Visit Diagnoses Diagnosis Primary osteoarthritis of both knees Primary localized osteoarthrosis, lower leg documented in this encounter Care Teams Feed In Worker Relationship Specialty Start Date End Date Carlos Hernandez DO [address] [place] [address] PCP - General 08/16/10 02/25/23 documented as of this encounter
--- OUTSIDE RECORDS SUMMARY | 2024-09-23 14:21 | XMS_ITS | Encounter Summary ---
Author Organization [facility] [place] [address] Care Team Providers Care Gear Nicker Name Role Phone Carlos Hernandez DO Primary Care Provider [phone] Reason for Visit * Reason Comments Medication Management Patient Education Encounter Details Date Type Department Care Team (Late st Contact Info) Description 11/13/2018 Specialty [place] [id number] Jono Reed RPH Social History Tobacco Use [...] Progress Notes * Jono Reed RPH - 11/13/2018 8:22 AM EST Specialty Pharmacy Consultation; Jono Reed RPH Comprehensive Medication Management (CMM) Raghu Rosenthal Diagnosis: psoriasis and psoriatic arthritis Therapy Start Date: 04/20/17 Contact in person or via telephone: telephone Mr. Raghu Rosenthal is a 73 y.o. (1945) male who was contacted in regard to specialty medication. Spoke with caregiver. Caregiver name: Cathy (spouse) regarding COSENTYX. A review of the medication therapy was performed. The medication was refilled as scheduled, and all medication related questions and concerns were addressed. The specialty pharmacy staff will follow up with the patient 5-7days prior to next refill. Is the patient willing to proceed with the Clinical Assessment? Yes Summary and Recommendations: Reviewed ongoing Cosentyx to verify effectiveness, r/o problems associated with therapy, and updatemedical record. Spoke with pt's Cathy who states that pt has no trouble using medication and is experiencing no side effects. Adherence is excellent and effectiveness is very good with only a small area of psoriasis on Raghu's back and the psoriatic arthritis mainly affecting his knees with p ain 6 of 10 on the pain scale. Howie is not experiencing any morning stiffness. Cathy also reviewed / verified allergies and reconciled medications with pharmacist. Clinic follow-up needed: yes - Howie has regular FUV with Dr. iSngh Allergies and Drug intolerance: Allergies Allergen Reactions ??? Vicodin [Hydrocodone-Acetaminophen] Shortness Of Breath Problems breathing ??? Morphine Sulfate Nausea And Vomiting ??? Arava [Leflunomide] Rash RASH ??? Clarithromycin ??? Hydrocodone Bitartrate ??? Indomethacin ??? Lansoprazole ??? Lipitor [Atorvastatin] Joint pain ??? Other [Unclassified Drug] IV dyes ??? Pravastatin Sodium ??? Tetracyclines ??? Venom-Honey Bee Special Dietary or Hydration Requirements: no There is no height or weight on file to calculate BMI. Medication Reconciliation Discrepancies (compared to [facility] med list) yes - marked triamcinolone 0.1% ointment and chlorhexidine 0.12% oral rinse as not using, marked topical diclofenac gel as rarely used as needed and Symbicort noted to be as needed (although pharmacist discussed that this is typically a daily maintenance med and should not be used as a rescuemedication) Medication Adherence Patient reported X missed doses in the last month: 0 Any gaps in refill history greater than 2 weeks in the last 3 months: no Demonstrates understanding of importance of adherence: yes Informant: spouse Reliability of informant: reliable Provider-estimated medication adherence level: 90-100% Adherence tools used: calendar, directed education Support network for adherence: family member Confirmed plan for next specialty medication refill: delivery by pharmacy Medication List: Current Outpatient Medications Medication Sig Note Dispense Refill ??? diclofenac (VOLTAREN) 1 % Gel Apply 2 g topically 4 times daily. 11/13/2018: Rarely as needed 100 g 3 ??? amLODIPine (NORVASC) 5 [...] Inhaler Inhale 2 puffs intothe lungs daily. 11/13/2018: Used as needed ??? mometasone (NASONEX) 50 mcg/actuation [place], Non-Aerosol 1 spray by Each Nare route as needed. Indications: as needed ??? EPINEPHrine (EPIPEN) 0.3 mg/0.3 mL (1:1,000) Auto-Injector Inject 0.3 mg into the muscle once. Reported on 04/20/2017 ??? losartan (COZAAR) 100 mg Tablet Take 100 mg by mouth daily. ??? tiotropium (SPIRIVA WITH HANDIHALER) 18 mcg Capsule, w/Inhalation Device Inhale 18 mcg into thelungs daily. ??? acetaminophen (TYLENOL) 500 mg tablet [...] 150 mg by mouth 2 times daily. ??? triamcinolone (KENALOG) 0.1 % Ointment Apply to the affected areas on the trunk and extremitiestwice daily for 2-3 weeks, then take 1 week break. Repeat as needed. (Patient not taking: Reported on 11/13/2018) 454 g 0 ??? chlorhexidine (PERIDEX) 0.12 % solution as needed. No current facility-administered medications for this visit. Most Recent Vitals: Ht Readings from Last 1 Encounters: 10/08/18 177.8 cm (5' 10) Wt Readings from Last 3 Encounters: 10/08/18 (!) 145.6 kg (321 lb) 08/22/18 (!) 145.2 kg (320 lb) 07/23/18 (!) 145.6 kg (321 lb) Temp Readings from Last 3 Encounters: 10/08/18 36.7 ??C (98.1 ??F) (Oral) 07/23/18 36.7 ??C (98 ??F) (Oral) 03/07/18 36.7 ??C (98 ??F) (Oral) BP Readings from Last 3 Encounters: 10/08/18 126/55 08/22/18 129/60 07/23/18 131/58 Pulse Readings from Last 3 Encounters: 10/08/18 62 08/22/18 51 07/23/18 55 Pertinent Lab values: Lab Results Component Value Date NA 140 07/23/2018 K 4.5 07/23/2018 CL 99 07/23/2018 CO2 25 07/23/2018 BUN 25 (H) 07/23/2018 CREATININE 1.65 (H) 07/23/2018 GLUCOSE 197 07/23/2018 GLUCFASTING 153 (H) 09/03/2013 CALCIUM 10.0 07/23/2018 Lab Results Component Value Date ALT 31 07/23/2018 AST 37 07/23/2018 ALKPHOS 44 07/23/2018 BILITOT 0.5 07/23/2018 BILIDIR 0.1 02/10/2016 ALBUMIN 4.4 07/23/2018 PROT 7.7 07/23/2018 Lab Results Component Value Date WBC 6.9 07/23/2018 HGB 14.2 07/23/2018 HCT 43.8 07/23/2018 MCV 88.8 07/23/2018 PLATELET 175 07/23/2018 No results found for: HA1C Immunization History Administered Date(s) Administered ??? Diphtheria,pertussis,tetanus 10/03/2011 ??? Influenza Vaccine w/Preservative, Split 07/17/2012, 06/30/2014, 07/13/2015 ??? Influenza Vaccine, Whole 07/14/2005, 08/10/2006, 07/16/2008 ??? Pneumococcal Polyvalent 23 09/19/2006, 10/03/2011 ??? Td, adult 09/24/1994, 05/01/2006 ??? Zoster Vaccine, Live 11/10/2012 Assessment and Recommendations: Title Type of Medication Management: chronic disease management, targeted medication review Referred By: provider Recipient: other authorized individual Provider: plan sponsor pharmacist Method of Contact: [...] missed doses discussed, pharmacy contact information discussed Number of adverse drug events identified: 0 Time spent: 16-30 min Treatment Outcomes 11/13/2018 Effectiveness of therapy, reported improvements: Improved Treatment Goals: Have partially been met Patient Overall Status: Improved Reviewed in detail with patient: Dose appropriateness [...] frequency and method Handling, storage, and disposal of the medication Relevant lab data Patient verbalizes understanding and is able to read-back instructions on self-administration/injection, proper storage, drug stability, importance of adherence and management strategies, side effectavoidance and mitigation strategies, and interruptions in therapy: Yes Economic Assessment: Patient is agreeable to medication copay: yes Copay Amount: $711.61 Day Supply: 84 Date Needed: 11/20/18 Copay assistance required: no Physical Assessment: Functional limitations identified: yes - knee pain needs to be considered when ambulating Is patient a fall risk: potentially, but no recent falls noted Cognitive limitations identified such as orientation, memory, reasoning or judgement: no Other: patient is hearing impaired and typically participates in consultations Social Assessment: Does the patient have a primary personal caregiver? no Patient has emergency contact on file: Yes Physical and Home Health Assessment: Is the patient able to store their medication as directed? Yes Is the patient in a safe home environment? Yes Do you have a support network? Yes Reviewed potential home safety hazards: Yes Therapy Assessment: Appropriate Therapy: Yes Current Medication Dosing/Route/Frequency: Inject the contents of 2 pens (300mg) subcutaneously every 28 days Effective: yes - pt only c/o knee pain at this time, and no morning stiffness Current joints affected: knees Current pain rating (1-10): 6 Estimated duration of morning joint stiffness: none Estimated number of recent flares: no recent flares of PsA or psoriasis Recent systemic corticosteroid use: no Patient experienced [...] track to achieve goals of therapy? yes Additional care/services needed: no Educational information or adherence tools provided: Yes Additional equipment/supplies required: no Care Plan Reviewed and Approved by both Pharmacist and Patient: Yes Did Care Plan Change? No Informed patient of specialty pharmacy services: Yes -Patient received welcome packet: Yes Date Received: 11/01/17 Delivery Method: shipped with Cosentyx -Patient returned signed Rights & Responsibilities: Yes Date Received: 08/06/18 (received back 08/14/18) Delivery Method: shipped with Cosentyx -Patient is aware a licensed pharmacist is [...] Yes Patient Satisfaction with Therapy: yes - overall improved Patient understands no changes to current drug regimen were made at the appointment and [facility]summary located at top of note) for provider review and follow up. Jono Reed RPH 11/13/18 8:54 AM documented in this encounter Plan of Treatment Upcoming Encounters Date Type Department Care Team (Late st Contact Info) Description 12/18/2024 2:00 PM EDT Office Visit Dermatology at [address] [phone] Joyce Snyder MD [facility] [place] [address] documented as of this encounter Goals Goal [...] on filedocumented in this encounter Care Teams Gear Nicker Relationship Specialty Start Date End Date Carlos Hernandez DO [address] [place] [address] PCP - General 08/16/10 02/25/23 documented as of this encounter
--- OUTSIDE RECORDS SUMMARY | 2024-09-23 14:21 | XMS_ITS | Encounter Summary ---
Author Organization [facility] [place] [address] Care Team Providers Care Refinery Operator [employer] Name Role Phone Carlos Hernandez DO Primary Care Provider Encounter Details Date Type Department Care Team (Late st Contact Info) Description 07/23/2018 9:00 AM EDT Office [place] [address] Lan Singh MD [facility] [place] [address] Psoriatic arthritis Social History Tobacco Use Types [...] Sign Reading Time Taken Comments Blood Pressure 131/58 07/23/2018 9:10 AM EDT Pulse 55 07/23/2018 9:10 AM EDT Temperature 36.7 ??C (98 ??F) 07/23/2018 9:10 AM EDT Respiratory Rate - - Oxygen Saturation 96% 07/23/2018 9:10 AM EDT Inhaled Oxygen Concentration - - Weight 145.6 kg (321 lb) 07/23/2018 9:10 AM EDT Height 177.8 cm (5' 10) 07/23/2018 9:10 AM EDT Body Mass Index 46.06 07/23/2018 9:10 AM EDT documented in this encounter Progress Notes * Lan Singh MD - 07/23/2018 9:00 AM EDT Is a follow-up appointment for Raghu Rosenthal date is 1945 ?? 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 He is currently on cosentyx for psoriasis and psoriatic arthritis with excellent control periodically gets a swollen joint but he does not get psoriatic skin lesions Today he is complaining of right knee pain although last visit it was left knee pain his right kneeis not swollen it slightly warm and he has crepitance as do both knees I injected his right knee with 40 mg of Kenalog and 2 cc of Xylocaine without complications Informed consent [...] was/were confirmed by visualization with the patient. His skin exam revealed no evidence of psoriasis and the remainder of his joint exam was unremarkable I ordered x-rays of his knees blood counts chemistries inflammatory markers and a urine analysis all of which is pending at the time of this dictation I made no medication changes and I will follow-up in August documented in this encounter Miscellaneous Notes * Addendum Note - Janae Ashley - 07/23/2018 9:00 AM EDTAddended by: JANAE ASHLEY on: 07/23/2018 10:26 AM Modules accepted: Orders documented in this encounter Plan of Treatment Upcoming Encounters Date Type Department Care Team (Late st Contact Info) Description 12/18/2024 2:00 PM EDT Office Visit Dermatology at [facility] [address] [place] [address] Joyce Snyder MD [facility] [place] [address] documented as of this encounter Goals Goal [...] Procedure Name Priority Date/Time Associated Diagnosis Comments URINALYSIS DIPSTICK Routine 07/23/2018 1 0:41 AM EDT Psoriatic arthritis CRP, ACUTE INFLAMMATION Routine 07/23/2018 10:35 AM EDT Psoriatic arthritis HEMOGRAM Routine 07/23/2018 10:35 AM EDT Psoriatic arthritis DIFFERENTIAL, AUTOMATED Routine 07/23/2018 10:35 AM EDT Psoriatic arthritis SEDIMENTATION RATE Routine 07/23/2018 10 :35 AM EDT Psoriatic arthritis CBC (WITH DIFF) Routine 07/23/2018 10:35 AM EDT Psoriatic arthritis URIC ACID Routine 07/23/2018 10:35 AM EDT Psoriatic arthritis COMPREHENSIVE METABOLIC PANEL Routine 07/23/2018 10:35 AM EDT Psoriatic arthritis documented in this encounter Results * (ABNORMAL) Urinalysis without microscopic (07/23/2018 10:41 AM EDT) Glucose, Urine Dipstick Negative Negative mg/dL [facility] Protein, Urine Dipstick 30(A) Negative mg/dL [facility] Bilirubin, Urine Dipstick Negative Negative mg/dL [facility] Comment: Clinical correlation required for positive Urine Bilirubin results as false positive may occur with some drugs and drug related products. If a false positive is suspected a serum total bilirubin should be considered if clinically indicated. Urobilinogen, Urine Dipstick 2.0(A) Normal mg/dL [facility] pH, Urn (dipstick) 5.0 5.0 - 8.0 [facility] Blood, Urine Dipstick Negative Negative mg/dL [facility] Ketone, Urine Dipstick 5(A) Negative mg/dL [facility] Nitrite, Urine Dipstick Negative Negative [facility] Leukocytes, Urine Dipstick Negative Negative [facility] Appearance, Urine Dipstick Clear Clear [facility] Specific [place] Urine Automated 1.025 1.002 - 1.030 [facility] Color, Urine Dipstick Yellow Yellow [facility] Urine specimen (specimen) 07/23/2018 10:41 AM EDT 07/23/2018 10:47 AM EDT Narrative Resulting Agency Comment Spec In Lab Lan Singh MD URINE ORDERABLES Performing Organization Address City/State/[facility] Co de Phone Number [facility] [place] [address] * Differential, Automated (07/23/2018 10:35 AM EDT) Neutrophil % 57.7 % [facility] Neutrophil Absolute 3.98 1.70 - 6.10 x10(3)/[facility] Lymph % 26.9 % [facility] Lymphocytes Abs 1.8 0.9 - 3.2 x10(3)/[facility] Monocyte % 8.0 % [facility] Monocyte Abs 0.6 0.3 - 0.9 x10(3)/[facility] Eos % 6.0 % [facility] Eosinophils Abs 0.4 0.0 - 0.4 x10(3)/[facility] Basophil % 1.0 % [facility] Baso Absolute 0.1 0.0 - 0.1 x10(3)/[facility] Immature Gran % 0.40 % [facility] Comment: Immature granulocytes(IG's)percentage and absolute count will include metamyelocytes, myelocytes, and promyelocytes. Blood smears from CBCs yielding IG's will be scanned manually for concordance. If this scan disagrees with the automated IG or if promyelocytes are noted, a manual differential will be performed. Immature Gran Absolute 0.03 0.00 - 0.04 x10(3)/[facility] Blood specimen (specimen) 07/23/2018 10:35 AM EDT 07/23/2018 10:41 AM EDT Narrative Resulting Agency Comment Spec In Lab Lan Singh MD HEMATOLOGY ORDERABLE S [facility] [place] [address] * Hemogram (07/23/2018 10:35 AM EDT) White Blood Cell 6.9 4.0 - 9.5 x10(3)/[facility] Red Blood Cell 4.93 4.58 - 5.54 x10(6)/[facility] Hemoglobin 14.2 13.7 - 16.5 gm/dL [facility] Hematocrit 43.8 40.5 - 48.5 % [facility] Mean Cell Volume 88.8 82.9 - 93.1 fL [facility] Mean Cell Hemoglobin 28.8 27.5 - 32.1 pg [facility] Mean Cell Hemoglobin Concentration 32.4 32.0 - 35.7 gm/dL [facility] Platelet 175 145 - 357 x10(3)/[facility] RDW Standard Deviation 42.0 36.0 - 45.0 fL [facility] RDW coefficient of variation 12.8 11.4 - 13.8 % [facility] Mean Platelet Volume 9.3 7.6 - 12.9 fL [facility] NRBC% auto 0.0 % [facility] NRBC Absolute 0.000 0.000 - 0.000 x10(3)/[facility] Blood specimen (specimen) 07/23/2018 10:35 AM EDT 07/23/2018 10:41 AM EDT Narrative Resulting Agency Comment Spec In Lab Lan Singh MD HEMATOLOGY ORDERABLE S Performing Organization Address [facility] Co de Phone Number [facility] [place] [address] * Uric acid (07/23/2018 10:35 AM EDT) Uric Acid 5.7 3.5 - 8.5 mg/dL [facility] Blood specimen (specimen) 07/23/2018 10:35 AM EDT 07/23/2018 10:41 AM EDT Narrative Resulting Agency Comment Spec In Lab Lan Singh MD CHEMISTRY ORDERABLES Performing Organization Address City/[facility]/ZIP Co de Phone Number [facility] [place] [address] * (ABNORMAL) CRP, acute inflammation (07/23/2018 10:35 AM EDT) C-Reactive Protein 5.7(H) <=4.9 mg/L [facility] Blood specimen (specimen) 07/23/2018 10:35 AM EDT 07/23/2018 10:41 AM EDT Narrative Resulting Agency Comment Spec In Lab Lan Singh MD CHEMISTRY ORDERABLES [facility] [place] [address] * Sedimentation rate (07/23/2018 10:35 AM EDT) Sedimentation Rate Automated 9 0 - 15 mm/hr [facility] Blood specimen (specimen) 07/23/2018 10:35 AM EDT 07/23/2018 10:41 AM EDT Narrative Resulting Agency Comment Spec In Lab Lan Singh MD HEMATOLOGY ORDERABLE S Performing Organization Address City/[facility] Co de Phone Number [facility] [place] [address] * (ABNORMAL) Comprehensive metabolic panel (non-fasting) (07/23/2018 10:35 AM EDT) Glucose 197 65 - 199 mg/dL [facility] Comment:Diabetes: >=200 mg/d L plus symptoms Blood Urea Nitrogen 25(H) 10 - 20 mg/dL [facility] Creatinine 1.65(H) 0.80 - 1.50 mg/dL [facility] Sodium 140 135 - 145 mmol/L [facility] Potassium 4.5 3.5 - 5.0 mmol/L [facility] Comment: Please note: ??Patients with WBC >100,000 may have falsely elevated Potassium levels. ??For accurate Potassium quantification in these patients send serum separator tube (gold top) for subsequent determinations. ??Contact the Clinical Chemistry Laboratory if there are any questions. Chloride 99 98 - 107 mmol/L [facility] Carbon Dioxide 25 22 - 31 mmol/L [facility] Anion Gap 16(H) 5 - 15 mmol/L [facility] Calcium 10.0 8.5 - 10.5 mg/dL [facility] Protein, Total 7.7 6.1 - 8.0 gm/dL [facility] Albumin 4.4 3.2 - 5.2 gm/dL [facility] Aspartate Aminotransferase 37 0 - 39 unit/L [facility] Alanine Aminotransferase 31 0 - 55 unit/L [facility] Alkaline Phosphatase 44 40 - 120 unit/L [facility] Bilirubin, Total 0.5 0.2 - 1.3 mg/dL [facility] Est Glomerular Filtration Rate 41(L) >=60 mL/min/1. 73 m?? [facility] Comment: The eGFR was calculated using the CKD-EPI equation. As with all creatinine based estimates of kidney function, eGFR values calculated with the CKD-EPI equation are not accurate in patients with acute kidney failure, extremes of body mass or the acutely ill. [email or web address] CITYnkf eGFR 48(L) >=60 mL/min/1. 73 m?? [facility] Comment: The eGFR was calculated using the CKD-EPI equation. As with all creatinine based estimates of kidney function, eGFR values calculated with the CKD-EPI equation are not accurate in patients with acute kidney failure, extremes of body mass or the acutely ill. [email or web address] Blood specimen (specimen) 07/23/2018 10:35 AM EDT 07/23/2018 10:41 AM EDT Narrative Resulting Agency Comment Spec In Lab Lan Singh MD CHEMISTRY ORDERABLES Performing Organization Address City/State/[facility] Co de Phone Number [facility] [place] [address] * XR Knee 1-2 Views Bilat (Generic) [...] Visit Diagnoses Diagnosis Psoriatic arthritis Psoriatic arthropathy Psoriatic arthritis Psoriatic arthropathy documented in this encounter Care Teams [employer] Relationship Specialty Start Date End Date Carlos Hernandez DO [address] [place] [address] PCP - General 08/16/10 02/25/23 documented as of this encounter
--- OUTSIDE RECORDS SUMMARY | 2024-09-23 14:21 | XMS_ITS | Encounter Summary ---
Author Organization [facility] Address [facility] [place] [address] Care Team Providers Care Tool Polishing Machine Operator Name Role Phone Carlos Hernandez DO Primary Care Provider [phone] Reason for Visit * Reason Comments Psoriasis * Consultation (Urgent) - Closed Specialty Diagnoses / Procedures Referred By Guanaco marie Referred To Contact Dermatology Diagnoses Psoriasis Lan Singh MD [facility] [place] [address] [facility] [address] [place] [address] Referral ID Status Reason Start Date Expiration Date V isits Requested Visits Authorized [id number] Closed Consult, Test & Treat 05/11/2017 05/11/2018 1 1 Encounter Details Date Type Department Care Team (Late st Contact Info) Description 06/29/2017 10:40 AM EDT Office Visit Dermatology at [facility] [address] [place] [address] Radha Montana MD [facility] [address] JAMA[place] [address] Eczema, unspecified type Social History Tobacco Use Types [...] on file documented as of this encounter Patient Instructions * Patient Instructions* Ness Britnikishore Davis LPN - 06/29/2017 10:[address] Watson's LO. C.A.L (Low Contact Allergen) Skin Diet Also known as Dr. Watson's Favorite Products for the Skin This Product list eliminates most commonly identified contact allergens (chemicals causing contact skin allergy) in patients with dermatitis, including: Fragrances/Formaldehyde releasing preservatives: quaternium-15, imidazolidinyl urea, diazolidinyl urea, DMDM hydantoin, bronopol/ Methylchloroisothiazolinone/methylisothiazolinone (MCI/HI)/Methyldibromo glutaronitrile/lanolin/Cocamidopropyl betaine/Oxybenzone (see next page for further explanation. SOAP ?? Aveeno Moisturizing Bar with Natural Colloidal Oatmeal, Fragrance Free, Ata & Ata www.Smart Furnitureo.Banter! $ ?? Vanicream Cleansing Bar, TSB Inc. www.Atlantium $ Avoid liquid cleansers. ?? Cerave Hydrating Cleanser, Picarro. www.nLife Therapeutics.Banter! $$$ ?? Cetaphil Gentle Skin Cleanser for all skin types, Galderma www.galderma.Banter! $$ ?? Free and Clear Liquid Cleanser, TSB Inc. www.Atlantium $$ SHAMPOO ?? Free and Clear Shampoo, Pharmaceutical Specialties Inc. www.Flow Search Corporation.Banter! HAIR CONDITIONER ?? DHS Conditioning Rinse, ONFocus Healthcare. www.Industrial Technology Group $$ ?? Exederm Conditioner, Turn. www.FatTail $$$ ?? Free and Clear Conditioner, TSB Inc. www.Atlantium $$ HAIR STYLING PRODUCTS (SPRAY/GEL) ?? Free and Clear Hair [place] (Soft Hold and Firm Hold), TSB Inc. www.Atlantium $$$ ?? Free and Clear Hair Styling Gel, TSB Inc. www.Atlantium $$ MOISTURIZER-OINTMENT ?? Hydrolatum, Propel Fuels. www.REVENUE.com $$ ?? Theraplex Emollient, The Robin, Strangeloop Networks. www.Vital Access $$$$$ ?? Vaseline 100% Pure Petroleum Jelly, SpotMe Fitness www.Bakers Shoes.Banter! $ MOSTURIZING CREAM ?? Aveeno Advanced Care, Moisturizing Cream with Soothing Oat Essence and Ceramides, Wixel Studios www.WeOwe $$ ?? Cerave Cream, Picarro. www.ExpertFlyer $$$ ?? Cetaphil Therapeutic Hand Cream, Galderma www.galderma.Banter! $$ ?? Eucerin Plus Intensive Repair hand Cr??me, [facility]. www.Knome $$ ?? Neutrogena Ukrainian Formula Hand Cream, Fragrance Free, Wixel Studios www.neutrogena.Banter! $ ?? Nutraplus Cream (urea 10%), Picarro. www.ExpertFlyer $$$$$ ?? Vanicream Skin Cream, TSB Inc. www.Atlantium $$$ MOISTURIZER-LOTION ?? Avenno Daily Moisturizing Lotion, Wixel Studios www.WeOwe $$ ?? Cerave Lotion, Picarro. www.corialabs.Banter! $$$ ?? Curel Continuous Comfort Fragrance Free Moisture Lotion, Spowits www.curel.com$$ ?? Lubriderm Daily Moisture Lotion, Fragrance-Free, Smashrun & Smashrun ?? Lubriderm Intense Skin Repair, Body Lotion with Itch Relief, Ata & Ata www.lubriderm.com $$ ?? Vanicream Lite Lotion, TSB Inc. www.Atlantium $$ ?? Vanicream Vitec Vitamin E. Lotion, DoNanza. www.Atlantium $$$ SUNSCREEN ?? Karlene Mccurdy Conchita-Posay www.Tiago-Posay. $$$$$ ?? Cetaphil Daily Facial Moisturizer SPF 15, Galderma www.galderma.Banter! $$$ ?? Elta Block SPF 32 Daily Wear, TravelKnowledge. www.H2i Technologiesta.No Boundaries Brewing Empire $$ ?? Elta Block SPF 30 [place], TravelKnowledge. www.Zentrick.No Boundaries Brewing Empire $$ ?? Eucerin Everyday Protection Body Lotion SPF 15, Letyano. www.Leap Medical.Banter! $$ ?? Vanicream Sunscreen (SPF 30, SPF 35 Sport, and SPF 60), DoNanza. www.Flow Search Corporation.Banter! $$ ?? VMV Hypoallergenics Maxime V Hypoallergenics www.vmvhypoallergenics.com $$$$ DEODORANT ?? Almay Hypoallergenic Fragrance Free (Roll-on, Clear Gel, and Solid) Anti- Perspirant/Deoderant, Revlon www.almay.Banter! $ ?? Certain Dri Antiperspirant Roll-On for Excessive Perspiration, Numark www.Integrity Digital SolutionsdrSeahorse $$ ?? VMV Hypoallergenics Essence of Skin-Saving Body and Bath Anti-Perspirant, [facility] Hypoallergenics www.Break30 $$$$ TOOTHPASTE ?? Flavor Free Toothpaste (Original Formula and 2009 Formula RX), available by prescription only, [facility] www.[facility]/specialty-pharmacy ?? Delvin's of Main Natural (Fluoride-Free and Anticavity Fluoride) Toothpaste for Children, Agnes Souza, Delvin's of [place] www.SnipSnap $ ?? VMV Hypoallergenics Essence of Skin-Saving, Simple-Gentle Toothpaste, [facility] Hypoallergenics www.Sprooki.Banter! $$$ LIP BALM ?? Kelsi Gann Line Fix Lip Repair, Lobera Cigars www.Digital Tech Frontier $$ ?? Vanicream Lip Protectant SPF 30, TSB, Inc. www.Flow Search Corporation.Banter! $ HAND DISTRIBUTION OPERATIONS SUPERVISOR ?? Korina Original Instant Hand Replenishment Specialist Fragrance-Free, B4 Brands www.INTEX Program $ ?? Korina Foaming Instant Hand Replenishment Specialist, B4 Brands www.INTEX Program $ SHAVING CREAM/GEL ?? Aveeno Therapeutic Shave Gel, Ata & Ata www.Mirubeeo.Banter! $ ?? Vanicream Shave Cream, PDV. www.Flow Search Corporation.Banter! $ BABY WIPES ?? Earth's Best TenderCare Chlorine Free Baby Wipes, The Alfredo CellestRoam & Wander Group, Inc. www.BellaDati $ ?? Chlorine Free Baby Wipes, Seventh Generation, www.atCollab $ LAUNDRY DETERGENT ?? All Free Clear, SimpliVity www.ChangeTipundryLeap Commerce $$ Approximate Retail Prices: Below $5 = $ $5 to $10 = $$ $11 to $15 = $$$ $16 to $20 = $$$$ >$21 = $$$$$ NOTES ON THESE SKIN CARE PRODUCTS These are a few notes which can be very helpful to people struggling with dermatitis (or eczema): 1. The hypoallergenic skin product diet on this handout outlines products which I have included because they do not contain any of the most common ingredients that can be a cause of skin allergy. Thelist is small and limited. The list is based on my experience interviewing and testing many allergic patients and time reviewing labels of products and learning about the importance of allergy. These allergens are well documented and reported in the medical literature as the most common sources of contact type allergy. Some of the ingredients eliminated are truly uncommon sources of allergy, though among patients with dermatitis or eczema, they are among the chemicals to which a person may be allergic. This skin diet does not eliminate all contact allergens, but it does a good job of eliminating the ones most commonly identified. 2. Just because a product like a lotion or a cream states on the label hypoallergenic it does notmean that such a product can't cause allergy. Even some ingredients considered hypoallergenic (or less apt to cause allergy) by the electrocardiograph repairer will in some individuals, be a source of allergy. 3. Even using a product which does contain an ingredient to which you are unknowingly allergic can worsen or aggravate your skin problem, and keep it going another several weeks. Therefore, only STRICT adherence to the SKIN DIET, using only the products on the list if needed, will be likely to help resolve your problem if allergy is a cause or important aggravating factor. 4. Testing for allergy is possible with patch testing. Patch testing may be recommended by your doctor to further evaluate the cause of your rash. For these recommendations to be successful you should: 1. Use only those products on the list that you feel you need, unless otherwise advised y your doctor. 2. Limit your use of skin products. If a moisturizer is needed, the thicker on is better. The most effective moisturizer feels greasy and is messy. If this is unacceptable, choose a product recommended in the cream or lotion category. Some people find using a greasy product at night, and a lotion or cream during the day is more acceptable. 3. If you are prescribed a medication, use your medication as advised by your doctor. Rub it in well. It is best to apply it at least one time a day after your skin has absorbed some water from bathing. Pat dry after bath or shower and apply your medication. 4.Follow-up with you doctor if your ski problem fails to resolve or improve. [Disclosure: Dr. Watson has no financial interest in any of the products mentioned on this list]. Created by Alethea Watson M.D. and Palak Onofre on 09/30/2009 Sensitive Skin Care You have been diagnosed with a condition that requires a sensitive skin care regimen. It is very important to follow this plan as outlined below. ? Take short, cool showers. Use soap only where absolutely needed. Pat skin dry. ?? Apply Triamcinolone to area of body daily/twice daily for 14 days. ?? Immediately after bathing, apply moisturizing cream to body. ?? Use only the following personal care products. They are are recommended by our clinic because they have been extensively tested and are least likely to cause distress to your skin. ?? Soap: Dove Unscented Bar Soap or Vanicream bar soap ?? Facial cleanser: CeraVe Foaming Facial Cleanser or CeraVe Hydrating Cleanser ?? Shampoo and Conditioner: Free&Clear shampoo, Free&Clear conditioner ?? Moisturizer: CeraVe cream, CeraVe lotion, CeraVe lite lotion, Vanicream cream ?? Laundry Detergent: ALL Free&Clear. Do not use fabric softener or dryer sheets. documented in this encounter Progress Notes * Radha Montana W - 06/29/2017 10:40 AM EDT Images from the original note were not included. DERMATOLOGY - NEW PATIENT NOTE Date of service: 06/29/2017 Raghu Rosenthal : 1945, 71 y.o. CC: Itchy rash HPI: Raghu Rosenthal is referred by Lan Singh with the following concerns: here today for a itchy, burning rash on his chest, arms, legs, neck and back since February 2017. He does swim frequently in a pool. He uses Lithuanian spring soap to bathe with and Bag [place] for moisturizer. Washes laundry withTide in the yellow container. He uses Jesenia dryer sheets. Reports a burning sensation of his scalp as well. History of psoriasis and psoriatic arthritis, on Cosentyx managed by second watch sergeant. 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 amLODIPine (NORVASC) 5 mg Tablet, Take 1 tablet by mouth daily. Take each evening in addition to taking the 10 mg each morning, Disp: 90 tablet, Rfl: 0 ??? rosuvastatin (CRESTOR) 5 mg Tablet, Take 1 tablet by mouth daily., Disp: 90 tablet, Rfl: 0 ??? secukinumab (COSENTYX, 2 SYRINGES,) 150 mg/mL Syringe, Inject 300 mg subcutaneously every 28 days., Disp: 6 Syringe, Rfl: 3 ??? amLODIPine (NORVASC) 10 mg Tablet, TAKE ONE TABLET BY MOUTH EVERY DAY, Disp: , Rfl: 3 ??? escitalopram (LEXAPRO) 20 mg Tablet, Take 20 mg by mouth daily., Disp: , Rfl: ??? traZODone (DESYREL) 100 mg Tablet, Take 100 mg by mouth nightly., Disp: , Rfl: ??? budesonide-formoterol (SYMBICORT) 160-4.5 mcg/actuation HFA Aerosol Inhaler, Inhale into the lungs., Disp: , Rfl: ??? mometasone (NASONEX) 50 mcg/actuation [place], Non-Aerosol, 50 mcg by Nasal route. Indications: as needed, Disp: , Rfl: ??? EPINEPHrine (EPIPEN) 0.3 mg/0.3 mL (1:1,000) Auto-Injector, Inject 0.3 mg into the muscle once.Reported on 04/20/2017, Disp: , Rfl: ??? losartan (COZAAR) 100 mg Tablet, Take 100 mg by mouth daily., Disp: , Rfl: ??? tiotropium (SPIRIVA WITH HANDIHALER) 18 mcg Capsule, w/Inhalation Device, Inhale 18 mcg into the lungs daily., Disp: , Rfl: ??? chlorhexidine (PERIDEX) 0.12 % solution, as needed., Disp: , Rfl: ??? acetaminophen (TYLENOL) 500 mg tablet, Take 2 tablets by mouth every 6 hours., Disp: 30 tablet,Rfl: ??? amoxicillin (AMOXIL) 500 mg capsule, Take 2,000 mg by mouth See Admin Instructions. Takes before Dental procedure. TAKE 4 TABLETS ONE HOUR BEFORE DENTAL PROCEDURES, Disp: , Rfl: ??? Magnesium Chloride 64 mg TbEC, Take by mouth., Disp: , Rfl: ??? aspirin 81 mg chewable tablet, Take 81 mg by mouth daily., Disp: , Rfl: ??? Fenofibric Acid (TRILIPIX) 135 mg CpDR, Take 1 tablet by mouth daily., Disp: , Rfl: ??? ranitidine (ZANTAC) 150 mg tablet, Take 150 mg by mouth 2 times daily., Disp: , Rfl: Allergies Allergen Reactions ??? Vicodin [Hydrocodone-Acetaminophen] Shortness Of Breath Problems breathing ??? Morphine Sulfate Nausea And Vomiting ??? Arava [Leflunomide] Rash RASH ??? Clarithromycin ??? Hydrocodone Bitartrate ??? Indomethacin ??? Lansoprazole ??? Lipitor [Atorvastatin] Joint pain ??? Other [Unclassified Drug] IV dyes ??? Pravastatin Sodium ??? Tetracyclines ??? Venom-Honey Bee Review of Systems: - General: Feels well. - Skin: No other skin concerns. Examination: - Constitutional: Patient was alert, well-appearing and in no noticeable distress. - Skin: Skin examination of the scalp, face, ears, neck, back, chest, abdomen, right and left upperextremities, right and left lower extremities, hands, feet, and buttocks was normal with the exception of the findings listed below. Diagnosis/Skin findings/Assessment/Plan: 1. Eczema - ill defined pink patches on the abdomen, bilateral dorsal arms, and hands, left posterior calf. No psoriasiform plaques on exam. No significant abnormalities of the nailfold capillaries. No eyelid rash. - Clinical picture not consistent with psoriasis or erythroderma; current rash in the spongiotic category - Prominence of sun exposed areas of the arms raises the possibility of a photoallergy (ie to chemical sunscreens), but abdomen also involved. - Avoid chemical sunscreens. Use zinc oxide or titanium dioxide sunscreens only. - Rx: Triamcinolone ointment - bid to affected areas for 2 weeks on, 1 week off. Repeat as needed. - Recommended sensitive skin care regimen, discussed and provided handout RTC: 1 month Note initiated by BRITNI ARZOLA LPN. I am documenting this encounter acting as the scribe for and inthe presence of Radha Montana MD I performed the above scribed service and agree with the accuracy of the documentation in this encounter. Reviewed and signed by Radha Montana MD Resident in Dermatology [facility] Patient seen and evaluated with staff senior manager asset protection: Janet Jeffrey MD Section of Dermatology [facility] * Janet Jeffrey MD - 06/29/2017 10:40 AM EDT I directly supervised Dr. Radha Montana during this office visit. Dr. Montana presented the historyand physical exam to me. I then saw and examined this patient with Dr. Montana. We reviewed the history and pertinent details and I confirmed the physical findings. I agree with the details of the history and physical exam as documented in Dr. Valdez note. JANET JEFFREY MD Staff Physician documented in this encounter Plan of Treatment Upcoming Encounters Date Type Department Care Team (Late st Contact Info) Description 12/18/2024 2:00 PM EDT Office Visit Dermatology at [address] [place] [address] Joyce Snyder MD [facility] [place] [address] documented as of this encounter Goals Goal [...] as of this encounter Visit Diagnoses Diagnosis Eczema, unspecified type documented in this encounter Care Teams Tool Polishing Machine Operator Relationship Specialty Start Date End Date Carlos Hernandez DO [address] [place] [address] PCP - General 08/16/10 02/25/23 documented as of this encounter
--- OUTSIDE RECORDS SUMMARY | 2024-09-23 14:21 | XMS_ITS | Encounter Summary ---
Author Organization [facility] Address [facility] [address] [place] [address] Care Team Providers Care Rn Neonatal Icu Name Role Phone Carlos Hernandez DO Primary Care Provider [phone] Reason for Visit * Reason Onset Date Comments Medication Refill 09/18/2017 Encounter Details Date Type Department Care Team (Late st Contact Info) Description 09/18/2017 Refill Cardiology at [address] [address] Raghu Graham MD Medication Refill Social History [...] Dermatology at [facility] [address] [place] [phone] Joyce Snyder MD [facility] [place] [address] documented as of this encounter Goals Goal Patient Goal Type Associated Problems Recent Progress Patient-Stated? Author DH Home Medication Compliance and Understanding Patient Facing Action Plan On track( 018 9:29 AM EST) Jono [place], [facility] Note: Patient's specific desired goal: Reduction in psoriasis patches and psoriatic arthritis pain / symptoms. Measured by: pain scale, joints affected, BSA affected by psoriasis Time-frame to meet goal: ongoing - mostly effective at this time documented as of this encounter Visit Diagnoses Diagnosis Essential hypertension Unspecified essential hypertension Hyperlipidemia, unspecified hyperlipidemia type documented in this encounter Care Teams Rn Neonatal Icu Relationship Specialty Start Date End Date Carlos Hernandez DO [address] [place] [address] PCP - General 08/16/10 02/25/23 documented as of this encounter
--- OUTSIDE RECORDS SUMMARY | 2024-09-23 14:21 | XMS_ITS | Encounter Summary ---
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 Author DH Home Medication Compliance and Understanding Patient Facing Action Plan On track( 018 9:29 AM EST) Jono [place], [facility] Note: Patient's specific desired goal: Reduction in psoriasis patches and psoriatic arthritis pain / symptoms. Measured by: pain scale, joints affected, BSA affected by psoriasis Time-frame to meet goal: ongoing - mostly effective at this time documented as of this encounter Results * EKG 12 Lead (05/22/2019 9:51 AM EDT) Ventricular rate 60 BPM MUSE SYSTEM Atrial Rate 60 BPM MUSE SYSTEM P-R Interval 198 ms MUSE SYSTEM QRS Duration 96 ms MUSE SYSTEM Q-T Interval 438 ms MUSE SYSTEM QTC Calculated (Bezet) 438 ms MUSE SYSTEM Calculated P [place] 69 degrees MUSE SYSTEM Calculated R [place] 53 degrees MUSE SYSTEM Calculated T [place] -3 degrees MUSE SYSTEM INTERPRETATION Normal sinus rhythm Nonspecific ST and T wave abnormality Abnormal ECG When compared with ECG of 21-FEB-2018 10:13, Premature ventricular complexes are no longer Present Nonspecific T wave abnormality has replaced inverted T waves in Lateral leads Confirmed by MD Scotty, Julián Painter ([id number]) on 05/26/2019 3:13:05 PM MUSE SYSTEM 05/22/2019 9:51 AM EDT 05/26/2019 3:13 PM EDT Raghu Graham MD ECG ORDERABLES MUSE SYSTEM documented in this encounter Visit Diagnoses Diagnosis Bradycardia- Primary Other specified cardiac dysrhythmias Essential hypertension Unspecified essential hypertension 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
--- OUTSIDE RECORDS SUMMARY | 2024-09-23 14:21 | XMS_ITS | Encounter Summary ---
Author Organization [facility] Address [facility] [place] [address] Care Team Providers Care Biometric Technician Name Role Phone Carlos Hernandez DO Primary Care Provider Encounter Details Date Type Department Care Team (Late st Contact Info) Description 05/13/2019 External Results Cardiology at [address] [address] Social History Tobacco Use Types Packs/Day Years [...] PM EDT Office Visit Dermatology at [facility] [address] [place] [address] Joyce Snyder MD [facility] [place] [address] documented as of this encounter Goals Goal Patient Goal Type Associated Problems Recent Progress Patient-Stated? Author [facility] Medication Compliance and Understanding Patient Facing Action Plan On track( 018 9:29 AM EST) Jono [place], [facility] Note: Patient's specific desired goal: Reduction in psoriasis patches and psoriatic arthritis pain / symptoms. Measured by: pain scale, joints affected, BSA affected by psoriasis Time-frame to meet goal: ongoing - mostly effective at this time documented as of this encounter Procedures Procedure Name Priority Date/Time Associated Diagnosis Comments EXTERNAL LAB RESULTS Routine 04/25/2017 documented in this encounter Results * External Lab Results (04/25/2017) Historical Provider CHEMISTRY ORDERAB LES documented in this encounter Visit Diagnoses Not on filedocumented in this encounter Care Teams Biometric Technician Relationship Specialty Start Date End Date Carlos Hernandez DO [address] [place] [address] PCP - General 08/16/10 02/25/23 documented as of this encounter
--- OUTSIDE RECORDS SUMMARY | 2024-09-23 14:21 | XMS_ITS | Encounter Summary ---
Author Organization [facility] Address [facility] [place] [address] Care Team Providers Care C.O.D. Clerk Name Role Phone Carlos Hernandez DO Primary Care Provider Reason for Visit * Reason Onset Date Comments Medication Refill 03/10/2019 Encounter Details Date Type Department Care Team (Late st Contact Info) Description 03/10/2019 Refill Cardiology at [address] [phone] Raghu Graham MD Medication Refill Social History [...] 2:00 PM EDT Office Visit Dermatology at [facility] [address] [place] [phone] Joyce [place] MD [facility] [place] [address] documented as of this encounter Goals Goal Patient Goal Type Associated Problems Recent Progress Patient-Stated? Author DH Home Medication Compliance and Understanding Patient Facing Action Plan On track( 018 9:29 AM EST) Jono Madrid, [facility] Note: Patient's specific desired goal: Reduction in psoriasis patches and psoriatic arthritis pain / symptoms. 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 Clerk Relationship Specialty Start Date End Date Carlos Hernandez DO [address] [place] [address] PCP - General 08/16/10 02/25/23 documented as of this encounter
--- OUTSIDE RECORDS SUMMARY | 2024-09-23 14:21 | XMS_ITS | Encounter Summary ---
Author Organization Count Includes [facility] Address [facility] [place] [address] Care Team Providers Care Centerless Grinder Operator Name Role Phone Carlos Hernandez DO Primary Care Provider Encounter Details Date Type Department Care Team (Late st Contact Info) Description 01/24/2018 [place] [address] Lan Singh MD [facility] [place] [address] Psoriasis Social History Tobacco Use Types Packs/Day [...] 2:00 PM EDT Office Visit Dermatology at [facility] [address] [place] [address] Joyce [place] MD [facility] [place] [address] documented as of this encounter Goals Goal [...] psoriasis documented in this encounter Care Teams Centerless Grinder Operator Relationship Specialty Start Date End Date Carlos Hernandez DO [address] [place] [address] PCP - General 08/16/10 02/25/23 documented as of this encounter
--- OUTSIDE RECORDS SUMMARY | 2024-09-23 14:21 | XMS_ITS | Encounter Summary ---
Author Organization [facility] Address [facility] [place] [address] Care Team Providers Care Superior Court Justice Name Role Phone Carlos Hernandez DO Primary Care Provider Reason for Visit * Reason Comments Eczema Encounter Details Date Type Department Care Team (Late st Contact Info) Description 08/08/2017 9:40 AM EST Office Visit Dermatology at [facility] [address] [place] [address] Radha Montana MD [facility] [address] [place] [address] Lentigines; SK (seborrheic keratosis); Eczema, unspecified type Social History Tobacco Use [...] as of this encounter Progress Notes * Radha Montana - 08/08/2017 9:40 AM EST Images from the original note were not included. DERMATOLOGY - ESTABLISHED PATIENT FOLLOW-UP Date of service: 08/08/2017 Raghu Rosenthal : 1945, 71 y.o. CC: Eczema follow up HPI: Raghu Rosenthal is a 71 y.o. male last seen by myself on 06/29/2017. - Patient here today for a one month follow up for eczema on the abdomen, bilateral dorsal arms, hands and left posterior calf. Patient states he has been applying the Triamcinolone and states his skin has improved significantly since last visit. He is also using Dove sensitive skin and taking colder showers. Also moisturizing his skin. He has a few brown spots scattered on the arms he would likechecked. 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 triamcinolone (KENALOG) 0.1 % Ointment, Apply to the affected areas on the trunk and extremities twice daily for 2-3 weeks, then take 1 week break. Repeat as needed., Disp: 454 g, Rfl: 0 ??? amLODIPine (NORVASC) 5 mg Tablet, Take [...] , Rfl: ??? mometasone (NASONEX) 50 mcg/actuation [place], Non-Aerosol, 50 mcg by Nasal route. Indications: as needed, Disp: , Rfl: ??? losartan (COZAAR) 100 [...] every 6 hours., Disp: 30 tablet,Rfl: ??? Magnesium Chloride 64 mg TbEC, Take by mouth., Disp: , Rfl: ??? aspirin 81 mg chewable tablet, Take 81 mg by mouth daily., Disp: , Rfl: ??? Fenofibric Acid (TRILIPIX) 135 mg CpDR, Take 1 tablet by mouth daily., Disp: , Rfl: ??? ranitidine (ZANTAC) 150 mg tablet, Take 150 mg by mouth 2 times daily., Disp: , Rfl: ??? EPINEPHrine (EPIPEN) 0.3 mg/0.3 mL (1:1,000) Auto-Injector, Inject 0.3 mg into the muscle once.Reported on 04/20/2017, Disp: , Rfl: ??? amoxicillin (AMOXIL) 500 mg capsule, Take 2,000 mg by mouth See Admin Instructions. Takes before Dental procedure. TAKE 4 TABLETS ONE HOUR BEFORE DENTAL PROCEDURES, Disp: , Rfl: Allergies Allergen Reactions ??? [...] distress. - Skin: Skin examination of the face, back, chest, abdomen, right and left upper extremities, left lower extremities, hands, normal with the exception of the findings listed below. Diagnosis/Skin findings/Assessment/Plan: 1. Eczema - interval improvement since last visit. -Apply Triamcinolone BID x 2 weeks PRN give skin 1 week break in between. 2. Solar lentigines- Multiple, uniformly lobato, slightly irregular, polygonal macules c/w lentigos onsun-exposed areas of skin on bilateral dorsal arms. Benign. Counseled: lentigines, sun damage and spontaneous development, rare risk of lentigo maligna (melanoma arising in a lentigo), sun protection, no treatment necessary but discussed cosmetic options, including topical bleaching agents, as well as chemical peels and lasers. Answered all questions. Handout given. 3. Seborrheic Keratoses- stuck-on, well-demarcated, lobato or brown, waxy or warty papule c/w SKs on the right shoulder and left dorsal forearm Benign. No treatment necessary. RTC: PRN, full skin 2 years . Note initiated by Claire Coronado CMA. I am documenting this encounter acting as the scribe forand in the presence of Radha Montana MD I performed the above scribed service and agree with the accuracy of the documentation in this encounter. Reviewed and signed by Radha Montana MD Resident in Dermatology [facility] Staff attending assignment desk editor: Betzy Noble MD Section of Dermatology [facility] * Betzy Noble MD - 08/08/2017 9:40 AM EST I was the supervising physician working with dermatology resident Dr. Radha Montana in the dermatology clinic during this patient visit. The level of Resident supervision for this patient visit was indirect supervision with direct supervision immediately available. (definition: [facility] Policy Statement on Graduate Medical Education, Supervision of Graduate Medical Trainees) I was immediately available to Dr. Montana for questions and discussion regarding this visit. I have reviewed her encounter note details and level of service. BETZY NOBLE MD Staff Physician documented in this encounter Plan of Treatment Upcoming Encounters Date Type Department Care Team (Late st Contact Info) Description 12/18/2024 2:00 PM EDT Office Visit Dermatology at [facility] [address] [place] [address] Joyce [place] MD [facility] [place] [address] documented as of this encounter Goals Goal Patient Goal Type Associated Problems Recent Progress Patient-Stated? Author DH Home Medication Compliance and Understanding Patient Facing Action Plan On track( 018 9:29 AM EST) No Jono Reed, [facility] Note: Patient's specific desired goal: Reduction in psoriasis patches and psoriatic arthritis pain / symptoms. Measured by: pain scale, joints affected, BSA affected by psoriasis Time-frame to meet goal: ongoing - mostly effective at this time documented as of this encounter Visit Diagnoses Diagnosis Lentigines Other dyschromia SK (seborrheic keratosis) Other seborrheic keratosis Eczema, unspecified type documented in this encounter Care Teams Superior Court Justice Relationship Specialty Start Date End Date Carols Hernandez DO [address] [place] [address] PCP - General 08/16/10 02/25/23 documented as of this encounter
--- OUTSIDE RECORDS SUMMARY | 2024-09-23 14:21 | XMS_ITS | Encounter Summary ---
Author Organization [facility] [place] [address] Care Team Providers Care Instructor Knitting Name Role Phone Carlos Hernandez DO Primary Care Provider Reason for Visit * Reason Comments Medication Management Encounter Details Date Type Department Care Team (Late st Contact Info) Description 08/01/2018 Specialty [place] [phone] Gal Cheney RPH Social History Tobacco Use [...] Progress Notes * Gal Cheney RPH - 08/01/2018 3:37 PM EST Clinical Management Plan: Refill Specialty Pharmacy Consultation; Gal Cheney RPH Comprehensive Medication Management (CMM) Raghu Rosenthal Mr. Raghu Rosenthal is a 72 y.o. [...] beneficiary Provider: plan sponsor pharmacist Visit Type: [facility] Follow-up Method of Contact: by telephone Cognitive [...] Venom-Honey Bee Medication Reconciliation Discrepancies (compared to [facility] med list) -none reported New medications: no New medical conditions: no [...] review and follow up. Gal Cheney RPH 08/01/18 3:38 PM documented in this encounter Plan of Treatment Upcoming Encounters Date Type Department Care Team (Late st Contact Info) Description 12/18/2024 2:00 PM EDT Office Visit Dermatology at [facility] [address] [place] [address] Joyce [place] MD [facility] [place] [address] documented as of this encounter Goals Goal Patient Goal Type Associated Problems Recent Progress Patient-Stated? Author DH Home Medication Compliance and Understanding Patient Facing Action Plan On track( 018 9:29 AM EST) No Jono Reed, [facility] Note: Patient's specific desired goal: Reduction in psoriasis patches and psoriatic arthritis pain / symptoms. Measured by: pain scale, joints affected, BSA affected by psoriasis Time-frame to meet goal: ongoing - mostly effective at this time documented as of this encounter Visit Diagnoses Not on filedocumented in this encounter Care Teams Instructor Knitting Relationship Specialty Start Date End Date Carlos Hernandez DO [address] [place] [address] PCP - General 08/16/10 02/25/23 documented as of this encounter
--- OUTSIDE RECORDS SUMMARY | 2024-09-23 14:21 | XMS_ITS | Encounter Summary ---
Author Organization [facility] Address [facility] [place] [address] Care Team Providers Care Indexer Name Role Phone Carlos Hernandez DO Primary Care Provider [phone] Reason for Visit * Reason Comments Psoriasis * Consultation (Routine) - Closed Specialty Diagnoses / Procedures Referred By Guanaco marie Referred To Contact Dermatology Diagnoses Psoriasis Lan [place] MD [facility] [address] [facility] [address] [place] [address] Referral ID Status Reason Start Date Expiration Date V isits Requested Visits Authorized [id number] Closed Consult, Test & Treat 03/06/2019 03/05/2020 1 1 Encounter Details Date Type Department Care Team (Late st Contact Info) Description 03/17/2019 3:30 PM EDT Office Visit Dermatology at [address] [place] [address] Erica Craft MD Psoriasis; Male pattern alopecia Social History Tobacco Use Types Packs/Day Years [...] as of this encounter Progress Notes * Erica Craft MD - 03/17/2019 3:30 PM EDT Images from the original note were not included. DERMATOLOGY - ESTABLISHED PATIENT FOLLOW-UP Date of service: 03/17/2019 Raghu Rosenthal : 1945, 73 y.o. Chief Complaint: Chief Complaint Patient presents with ??? Psoriasis HPI: Raghu Rosenthal is a 73 y.o. male last seen by on 08/08/2017. Mr. Rosenthal returns today for scaling on scalp. Sent by rivers [place] lakes boatman, Dr. [place]. Patient has history of psoriasis and psoriatic arthritis. He has been on Cosentyx for 3-4 years; managed by rheumatology. Overall his skin and joints are doing well, apart from scalp. This is somewhat itchy. He has been using an OTC anti-dandruff shampoo. No other topical treatments. He has a few psoriasis plaques on his abdomen and lower back. He uses triamcinolone on these as needed. Patient also reports overalldecreased hair density. No other concerns. Relevant Skin History: Melanoma: no Lupus ?? 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 amLODIPine (NORVASC) 5 mg Tablet Take 1 tablet by mouth daily. Take each evening in addition totaking the 10 mg each morning 90 tablet 0 ??? rosuvastatin (CRESTOR) 5 mg Tablet Take 1 tablet by mouth daily. 90 tablet 0 ??? metFORMIN (GLUCOPHAGE) 500 mg Tablet 2 times daily. 0 ??? secukinumab (COSENTYX, 2 SYRINGES,) 150 [...] lungs daily. ??? mometasone (NASONEX) 50 mcg/actuation [place], Non-Aerosol 1 spray by Each Nare route [...] No current facility-administered medications for this visit. Allergies: Allergies Allergen Reactions ??? Vicodin [Hydrocodone-Acetaminophen] Shortness [...] and in no noticeable distress. - Skin: The patient was asked to disrobe to the level of their comfort. Skin examination of the scalp, face, neck, back, abdomen, right and left upper extremities, right and left lower extremitieswasnormal with the exception of the findings listed below. - A female nurse was present and on standby during my examination. Diagnosis/Skin fidings/Assessment/Plan: 1. Psoriasis/psoriatic arthritis: plaques with white adherent scale in central scalp. Thin, well circumscribed plaques on lower abdomen and lower back. <3% BSA. 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 - Discussed diagnosis, unrelated to psoriasis or treatments for psoriasis - Recommended trial of Rogaine 5% for men qhs on the nights not using [place]- Smoothe as above RTC: 3 months for follow up Note initiated by OSMAR LU LPN. I, OSMAR LU LPN, have performed the documentation for this encounter in the presence of and acting as a scribe for Erica Craft MD. I performed the services which were documented by the scribe, and I agree with the accuracy of the documentation in this encounter. Erica Craft MD Reviewed and signed by: Erica Craft MD Resident in Dermatology [facility] Patient seen and evaluated with staff bilingual legal assistant: Palak Schuler MD Section of Dermatology [facility] * Laly Schuler MD - 03/17/2019 3:30 PM EDT I directly supervised Dr. Erica Craft during this office visit. Dr. Craft presented the history andphysical exam to me. I then saw and examined this patient with Dr. Craft. We reviewed the history andpertinent details and I confirmed the physical findings. I agree with the details of the history and physical exam as documented in Dr. Stein note. LALY SCHULER MD Staff Physician documented in this encounter Plan of Treatment Upcoming Encounters Date Type Department Care Team (Late st Contact Info) Description 12/18/2024 2:00 PM EDT Office Visit Dermatology at [address] [place] [address] Joyce [place] MD [facility] [place] [address] documented as of this encounter Goals Goal [...] encounter Visit Diagnoses Diagnosis Psoriasis Other psoriasis Male pattern alopecia Other alopecia documented in this encounter Care Teams Indexer Relationship Specialty Start Date End Date Carlso Hernandez DO [address] [place] [address] PCP - General 08/16/10 02/25/23 documented as of this encounter
--- OUTSIDE RECORDS SUMMARY | 2024-09-23 14:22 | XMS_ITS | Encounter Summary ---
Author Organization [facility] [place] [address] Care Team Providers Care Management Scientist Name Role Phone Carlos Hernandez DO Primary Care Provider Reason for Visit * Reason Comments Follow-up Encounter Details Date Type Department Care Team (Late st Contact Info) Description 05/05/2014 9:40 AM EDT Follow-Up Cardiology at [address] [phone] Williams Miranda MD Hypertension (Primary Dx); S/P AVR Discharge Disposition: Home Social History [...] Sign Reading Time Taken Comments Blood Pressure 168/90 05/05/2014 9:40 AM EDT Pulse 46 05/05/2014 9:40 AM EDT Temperature - - Respiratory Rate - - Oxygen Saturation 94% 05/05/2014 9:40 AM EDT Inhaled Oxygen Concentration - - Weight 133.4 kg (294 lb) 05/05/2014 9:40 AM EDT Height 177.8 cm (5' 10) 05/05/2014 9:40 AM EDT Body Mass Index 42.18 05/05/2014 9:40 AM EDT documented in this encounter Patient Instructions * Patient Instructions* Williams Miranda MD - 05/05/2014 10:12 AM EDT Images from the original note were not included. [facility] High Blood Pressure: After Your Visit Your Care Instructions If your blood pressure is usually above 140/90, you have high blood pressure, or hypertension. Despite what a lot of people think, high blood pressure usually doesn't cause headaches or make you feeldizzy or lightheaded. It usually has no symptoms. But it does increase your risk for heart attack, stroke, and kidney or eye damage. The higher your blood pressure, the more your risk increases. Your doctor will give you a goal for your blood pressure. This goal may be below 140/90. Or it may be even lower if you have other health problems, such as diabetes, heart failure, or coronary arterydisease. Changes in your lifestyle, such as staying at a healthy weight, may help you lower your blood pressure. Your treatment also will include medicine. If you stop taking your medicine, your blood pressure will go back up. Follow-up care is a velasco part of your treatment and safety. Be sure to make and go to all appointments, and call your doctor if you are having problems. It???s also a good idea to know your test results and keep a list of the medicines you take. How can you care for yourself at home? Medical treatment ?? Take your medicine exactly as prescribed. You may take one or more types of medicine to lower your blood pressure. They include diuretics, beta-blockers, TAO inhibitors, calcium channel blockers, angiotensin II receptor blockers, and other medicines. Call your doctor if you think you are having a problem with your medicine. ?? Your doctor may suggest that you take one low-dose aspirin (81 mg) a day. This can help reduce your risk of having a stroke or heart attack. ?? See your doctor at least 2 times a year. You may need to see the doctor more often at first or until your blood pressure comes down. ?? If you are taking blood pressure medicine, talk to your doctor before you take decongestants or anti-inflammatory medicine, such as ibuprofen. Some of these medicines can raise blood pressure. ?? Learn how to check your blood pressure at home. Lifestyle changes ?? Stay at a healthy weight. This is especially important if you put on weight around the waist. Losing even 10 pounds can help you lower your blood pressure. ?? If your doctor recommends it, get more exercise. Walking is a good choice. Bit by bit, increase the amount you walk every day. Try for at least 30 minutes on most days of the week. You also may want to swim, bike, or do other activities. ?? Avoid or limit alcohol. Talk to your doctor about whether you can drink any alcohol. ?? Limit salt. ?? Eat plenty of fruits (such as bananas and oranges), vegetables, legumes, whole grains, and low-fat dairy products. ?? Lower the amount of saturated fat in your diet. Saturated fat is found in animal products such as milk, cheese, and meat. Limiting these foods may help you lose weight and also lower your risk forheart disease. ?? Do not smoke. Smoking increases your risk for heart attack and stroke. If you need help quitting, talk to your doctor about stop-smoking programs and medicines. These can increase your chances of quitting for good. When should you call for help? Call your doctor now or seek immediate medical care if: ?? Your blood pressure is much higher than normal (such as 180/110 or higher). ?? You think high blood pressure is causing symptoms such as: ?? Severe headache. ?? Blurry vision. ?? Nausea or vomiting. Watch closely for changes in your health, and be sure to contact your doctor if: ?? You do not get better as expected. Where can you learn more? Visit our health information library at [email or web address] [email or web address] You can also view health information on M-Audio, your personal patient account. Log in or sign up today. Enter X567 in the search box to learn more about High Blood Pressure: After Your Visit. ?? [id number] [employer]. Care instructions adapted under license by [facility]. This care instruction is for use with your licensed healthcare professional. If you have questions about a medical condition or this instruction, always ask your healthcare professional. [employer] disclaims any warranty or liability for your use of this information. Content Version: [id number]; Last Revised: November 12, 2012 documented in this encounter Progress Notes * Williams Miranda MD - 05/05/2014 10:00 AM EDT Mr. Rosenthal returns for regular follow up s/p AVR. He is generally feeling well, gets occasional palpitations. Blood pressure at home runs in the 120's, but sometimes in 150's. Still has some hypersensitivity to chest wall. No unusual shortness of breath. Patient Active Problem List Diagnosis Code ??? Depression 311 ??? Psoriasis 696.1 ??? Obesity 278.00 ??? HTN (hypertension) 401.9 ??? Hyperlipidemia 272.4 ??? GERD (gastroesophageal reflux disease) 530.81 ??? Sleep apnea 780.57 ??? Former smoker V15.82 ??? 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 Subarachnoid hemorrhage 430 ??? Fatty liver 571.8 ??? Pancreatitis 577.0 ??? Cholelithiasis 574.20 ??? Diverticulitis 562.11 ??? 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 (aortic stenosis) 424.1 Current Outpatient Rx Name Route Sig Dispense Refill ??? BUDESONIDE-FORMOTEROL HFA 80 MCG-4.5 MCG/ACTUATION AEROSOL INHALER Inhalation Inhale 2 puffs into the lungs 2 times daily. ??? GABAPENTIN 100 MG CAPSULE TAKE THREE CAPSULES BY MOUTH AT BEDTIME 90 capsule 0 ??? USTEKINUMAB 90 MG/ML SUBCUTANEOUS SYRINGE Subcutaneous Inject 1 mL subcutaneously Q 3 Months. 1 mL 3 Please call to arrange delivery with patient. They ... ??? METOPROLOL TARTRATE 25 MG TABLET Oral Take 25 mg by mouth daily. ??? HYDROCHLOROTHIAZIDE 25 MG TABLET Oral Take 25 mg by mouth daily. ??? CHLORHEXIDINE GLUCONATE 0.12 % MOUTHWASH as needed. ??? ACETAMINOPHEN 500 MG TABLET Oral Take 2 tablets by mouth every 6 hours. 30 tablet ??? SENNOSIDES-DOCUSATE SODIUM 8.6 MG-50 MG TABLET Oral Take 2 tablets by mouth daily. 60 tablet ??? AMOXICILLIN 500 MG CAPSULE Oral Take 500 mg by mouth 4 times daily. Takes before Dental procedure Indications: Pneumococcal Pneumonia ??? MAGNESIUM CHLORIDE 64 MG TABLET,DELAYED RELEASE Oral Take by mouth. ??? CITALOPRAM 20 MG TABLET Oral Take 20 mg by mouth daily. ??? TRAZODONE 50 MG TABLET Oral Take 50 mg by mouth nightly. ??? ASPIRIN 81 MG CHEWABLE TABLET Oral Take 81 mg by mouth daily. ??? FENOFIBRIC ACID (CHOLINE) 135 MG CAPSULE,DELAYED RELEASE Oral Take 1 tablet by mouth daily. ??? EPINEPHRINE 0.15 MG/0.3 ML (1:2,000) INJECTION,AUTO-INJECTOR Intramuscular Inject into the muscle as needed. ??? RANITIDINE 150 MG TABLET Oral Take 150 mg by mouth 2 times daily. ??? AZITHROMYCIN 250 MG TABLET ??? BENZONATATE 100 MG CAPSULE ??? PREDNISONE 20 MG TABLET Allergies Allergen Reactions ??? Vicodin (Hydrocodone-Acetaminophen) Shortness Of Breath Problems breathing ??? Morphine Sulfate Nausea And Vomiting ??? Bee Venom (Honey Bee) ??? Clarithromycin ??? Hydrocodone Bitartrate ??? Indomethacin ??? Lansoprazole ??? Lipitor (Atorvastatin) Joint pain ??? Other (Unclassified Drug) IV dyes ??? Pravastatin Sodium ??? Prednisone ??? Tetracyclines BP 168/90 Pulse 46 Ht 177.8 cm (5' 10) Wt 133.358 kg (294 lb) BMI 42.18 kg/m2 SpO2 94% Chest - clear Cor - valve sounds crisp, no murmur Echo - normal LV, normal prosthetic function I&P: From the perspective of his aortic valve replacement and CABG he is doing very well. His blood pressure is too high and I have taken th eliberty of starting him on losartan 25 mg a day. I have asked him to follow up with Dr. Hernandez for further care of his blood pressure - titration as needed and testing of his renal function in 4-6 weeks. RV me in 1 year with echo. documented in this encounter Plan of Treatment Upcoming Encounters Date Type Department Care Team (Late st Contact Info) Description 12/18/2024 2:00 PM EDT Office Visit Dermatology at [facility] [address] [place] [address] Joyce Snyder MD [facility] [place] [address] documented as of this encounter Visit Diagnoses Diagnosis Hypertension- Primary Unspecified essential hypertension S/P AVR Heart valve replaced by other means documented in this encounter Care Teams Management Scientist Relationship Specialty Start Date End Date Carlos Hernandez DO [address] [place] [address] PCP - General 08/16/10 02/25/23 documented as of this encounter
--- OUTSIDE RECORDS SUMMARY | 2024-09-23 14:22 | XMS_ITS | Encounter Summary ---
Author Organization [facility] Address [facility] [place] [address] Care Team Providers Care Audit Lead Name Role Phone Carlos Hernandez DO Primary Care Provider [phone] Reason for Visit * Reason Comments Psoriatic Arthropathy Encounter Details Date Type Department Care Team (Late st Contact Info) Description 07/16/2014 9:30 AM EDT [place] [phone] Lan Singh MD [facility] [place] [address] Psoriasis (Primary Dx) Discharge Disposition: Home Social History Tobacco Use [...] Sign Reading Time Taken Comments Blood Pressure 195/93 07/16/2014 9:25 AM EDT Pulse 49 07/16/2014 9:25 AM EDT Temperature 36.4 ??C (97.5 ??F) 07/16/2014 9:25 AM ED T Respiratory Rate - - Oxygen Saturation 97% 07/16/2014 9:25 AM EDT Inhaled Oxygen Concentration - - Weight 136.5 kg (301 lb) 07/16/2014 9:25 AM EDT Height 177.8 cm (5' 10) 07/16/2014 9:25 AM EDT Body Mass Index 43.19 07/16/2014 9:25 AM EDT documented in this encounter Progress Notes * Lan Singh MD - 07/16/2014 9:51 AM EDT This is a return appointment on Raghu Rosenthal. The patient is a 68-year-old male who returns for followup of his psoriasis, psoriatic arthritis, sleep apnea, osteoarthritis, and dyshidrotic eczema. 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 He is currently on Stelara for his psoriasis and psoriatic arthritis and doing very well with no skin disease and relatively stable synovial thickening, but no inflammatory disease. He benefits from the CPAP and is titrated and has been asked to increase his exercise and get more health conscious, but that is a slow process. PHYSICAL EXAMINATION: On exam, his blood pressure in April was 168/90. His pulse was 46. His pulse ox was 94. His weight was 294 for a BMI of 42, it has been as high as 307, at its lowest 277, so he is not terribly different, but still morbidly obese. His skin was negative for psoriasis and his hands showed thickening of this synovium over the MCPs, but otherwise unremarkable. I made no medication changes. I did order laboratory studies that are pending at the time of this dictation. I will follow up in six weeks. documented in this encounter Plan of Treatment Upcoming Encounters Date Type Department Care Team (Late st Contact Info) Description 12/18/2024 2:00 PM EDT Office Visit Dermatology at [facility] [address] [place] [address] Joyce Snyder MD [facility] [place] [place] [address] documented as of this encounter Procedures Procedure Name Priority Date/Time Associated Diagnosis Comments HEMOGRAM Routine 07/16/2014 10:18 AM EDT Psoriasis DIFFERENTIAL, AUTOMATED Routine 07/16/2014 10:18 AM EDT Psoriasis CBC (WITH DIFF) Routine 07/16/2014 10:18 AM EDT Psoriasis COMPREHENSIVE METABOLIC PANEL Routine 07/16/2014 10:18 AM EDT Psoriasis documented in this encounter Results * Differential, Automated (07/16/2014 10:18 AM EDT) Neutrophil % 63.1 % CERNER MILLENNIUM Neutrophil Absolute 3.68 1.50 - 6.30 x10(3)/mcL CERNER MILLENNIUM Lymph % 24.0 % CERNER MILLENNIUM Lymphocytes Abs 1.4 1.0 - 3.6 x10(3)/mcL CERNER MILLENNIUM Monocyte % 7.4 % CERNER MILLENNIUM Monocyte Abs 0.4 0.2 - 1.0 x10(3)/mcL CERNER MILLENNIUM Eos % 5.0 % CERNER MILLENNIUM Eosinophils Abs 0.3 0.0 - 0.5 x10(3)/mcL CERNER MILLENNIUM Basophil % 0.5 % CERNER MILLENNIUM Baso Absolute 0.0 0.0 - 0.2 x10(3)/mcL CERNER MILLENNIUM Immature Gran % 0.00 % CERN ER MILLENNIUM Comment: Immature granulocytes(IG's)percentage and absolute count will include metamyelocytes, myelocytes, and promyelocytes. Blood smears from CBCs yielding IG's will be scanned manually for concordance. If this scan disagrees with the automated IG or if promyelocytes are noted, a manual differential will be performed. Immature Gran Absolute 0.00 0.00 - 0.05 x10(3)/mcL CERNER MILLENNIUM Blood specimen (specimen) 07/16/2014 10:18 AM EDT 07/16/2014 10:27 AM EDT Narrative Resulting Agency Comment Spec In Lab Lan Singh MD HEMATOLOGY ORDERABLE S Performing Organization Address City/State/[facility] Co de Phone Number MARCY FINCH * (ABNORMAL) Hemogram (07/16/2014 10:18 AM EDT) Pathologist [facility] White Blood Cell 5.8 4.0 - 10.0 x10(3)/mc L CERNER MILLENNIUM Red Blood Cell 4.68 4.63 - 6.08 x10(6)/mc L CERNER MILLENNIUM Hemoglobin 13.2(L) 13.7 - 17.5 gm/dL CERNER MILLENNIUM Hematocrit 40.8 40.0 - 51.0 % CERNER MILLENNIUM Mean Cell Volume 87.2 79.0 - 92.0 fL CERNER MILLENNIUM Mean Cell Hemoglobin 28.2 25.6 - 32.2 pg CERNER MILLENNIUM Mean Cell Hemoglobin Concentration 32.4 32.0 - 36.5 gm/dL CERNER MILLENNIUM Platelet 151 145 - 370 x10(3)/mc L CERNER MILLENNIUM RDW Standard Deviation 45.2 35.0 - 46.0 fL CERNER MILLENNIUM RDW coefficient of variation 14.4 10.9 - 14.4 % CERNER MILLENNIUM Mean Platelet Volume 9.9 9.0 - 12.0 fL CERNER MILLENNIUM Blood specimen (specimen) 07/16/2014 10:18 AM EDT 07/16/2014 10:27 AM EDT Narrative Resulting Agency Comment Spec In Lab Lan Singh MD HEMATOLOGY ORDERABLE S Performing Organization Address [facility] Co de Phone Number CERWES FINCH * (ABNORMAL) Comprehensive metabolic panel (non-fasting) (07/16/2014 10:18 AM EDT) Pathologist [facility] Glucose 102 60 - 199 mg/dL CERNER MILLENNIUM Comment:Diabetes: >=200 mg/d L plus symptoms Blood Urea Nitrogen 30(H) 10 - 20 mg/dL CERNER MILLENNIUM Creatinine 1.73(H) 0.80 - 1.50 mg/dL CERNER MILLENNIUM Comment: Please note that the pediatric reference intervals supplied above were not validated at [facility]. Results from pediatric patients should be interpreted in conjunction to the patient's age, height and muscle mass. Sodium 143 135 - 145 mmol/L CERNER MILLENNIUM Potassium 4.6 3.5 - 5.0 mmol/L CERNER MILLENNIUM Comment: Please note: ??Patients with WBC >100,000 may have falsely elevated Potassium levels. ??For accurate Potassium quantification in these patients send serum separator tube (gold top) for subsequent determinations. ??Contact the Clinical Chemistry Laboratory if there are any questions. Chloride 102 98 - 107 mmol/L CERNER MILLENNIUM Carbon Dioxide 22 22 - 31 mmol/L CERNER MILLENNIUM Anion Gap 19(H) 5 - 15 mmol/L CERNER MILLENNIUM Calcium 9.6 8.5 - 10.5 mg/dL CERNER MILLENNIUM Protein, Total 7.0 6.4 - 8.3 gm/dL CERNER MILLENNIUM Albumin 4.1 3.2 - 5.2 gm/dL CERNER MILLENNIUM Aspartate Aminotransferase 27 0 - 39 unit/L CERNER MILLENNIUM Alanine Aminotransferase 21 0 - 55 unit/L CERNER MILLENNIUM Alkaline Phosphatase 30(L) 40 - 120 unit/L CERNER MILLENNIUM Bilirubin, Total 0.4 0.2 - 1.3 mg/dL CERNER MILLENNIUM Bilirubin, Direct 0.1 0.0 - 0.3 mg/dL CERNER MILLENNIUM Est Glomerular Filtration Rate 40(L) >=60 CERNER MILLENNIUM Comment: This estimated GFR (eGFR) value was [...] the following links into your internet browser. [email or web address] Blood specimen (specimen) 07/16/2014 10:18 AM EDT 07/16/2014 10:27 AM EDT Narrative Resulting Agency Comment Spec In Lab Lan Singh MD CHEMISTRY ORDERABLES CERNER MILLENNIUM documented in this encounter Visit Diagnoses Diagnosis Psoriasis- Primary Other psoriasis documented in this encounter Care Teams Audit Lead Relationship Specialty Start Date End Date Carlos Hernandez DO [address] [facility] [address] [place] [address] PCP - General 08/16/10 02/25/23 documented as of this encounter
--- OUTSIDE RECORDS SUMMARY | 2024-09-23 14:22 | XMS_ITS | Encounter Summary ---
Author Organization [facility] [place] [address] Care Team Providers Care Calibration Technician Name Role Phone Carlos Hernandez DO Primary Care Provider Reason for Visit * Reason Onset Date Comments Other 10/20/2015 question Encounter Details Date Type Department Care Team (Late st Contact Info) Description 10/20/2015 Telephone [place] [phone] Jazmine García RN Other (question) Social History Tobacco Use Types Packs/Day Years [...] encounter Miscellaneous Notes * Telephone Encounter - Jazmine García RN - 10/20/2015 10:59 AM EST Raghu and his are calling today because since starting the leflunomide he has developed a rash on his stomach and left leg. He describes it as red, itchy and a little puffy. Recommended he hold the medication and see if it resolves. Raghu asks if there is anything he could put on it. Told him he can use hydrocortisone cream and take Benadryl if he likes. Asked them to call in a couple ofdays with an update. aRghu and his verbalized understanding of instructions. documented in this encounter Plan of Treatment Upcoming Encounters Date Type Department Care Team (Late st Contact Info) Description 12/18/2024 2:00 PM EDT Office Visit Dermatology at [facility] [address] [place] [address] Joyce Snyder MD [facility] [place] [address] documented as of this encounter Visit Diagnoses Not on filedocumented in this encounter Care Teams Calibration Technician Relationship Specialty Start Date End Date Carlos Hernandez DO [address] [place] [address] PCP - General 08/16/10 02/25/23 documented as of this encounter
--- OUTSIDE RECORDS SUMMARY | 2024-09-23 14:22 | XMS_ITS | Encounter Summary ---
Author Organization [facility] Address [facility] [place] [address] Care Team Providers Care Pension Consultant Name Role Phone Carlos Hernandez DO Primary Care Provider Encounter Details Date Type Department Care Team (Latest Contact Info) Description 05/06/2015 12:33 PM EDT - 05/06/2015 11:59 PM EDT Hospital Encounter XRay at [facility] [address] [facility] [place] [phone] Aftercare following joint replacement Social History Tobacco Use Types Packs/Day Years [...] Sig Dispensed Refills Start Date End Date losartan (COZAAR) 100 mg Tablet Take 100 [...] 2 times daily. amLODIPine (NORVASC) 5 mg Tablet Take 10 mg by mouth nightly. 10/13/2016 tiotropium (SPIRIVA WITH HANDIHALER) 18 mcg Capsule, w/Inhalation Device Inhale 18 mcg into the lungs daily as needed. 1 ustekinumab (STELARA) 90 mg/mL SyringeIndications:P soriasis Inject 1 mL subcutaneously Q 3 Months. 1 mL 3 01/28/2015 02/10/2016 hydrochlorothiazide (HYDRODIURIL) 25 mg tablet Take 25 mg by mouth daily. 05/11/2017 chlorhexidine (PERIDEX) 0.12 % solution as needed. 08/06/2013 03/06/2019 Magnesium Chloride 64 mg TbEC Take 64 mg by mouth daily. 03/06/2019 citalopram (CELEXA) 20 mg tablet Take 20 mg by mouth daily. 06/29/2015 traZODone (DESYREL) 50 mg tablet Take 50 mg by mouth nightly. 07/06/2016 epiNEPHrine (EPIPEN JR.) 0.15 mg/0.3 mL PnIj injection Inject into the muscle as needed. 06/29/2015 documented as of this encounter Plan of Treatment Upcoming Encounters Date Type Department Care Team (Late st Contact Info) Description 12/18/2024 2:00 PM EDT Office Visit Dermatology at [address] [phone] Joyce Snyder MD [facility] [place] [address] documented as of this encounter Procedures Procedure Name Priority Date/Time Associated Diagnosis Comments XR PELVIS AND HIP BILAT (GENERIC) Routine 05/06/2015 12:54 PM EDT Aftercare following joint replacement documented in this encounter Results * XR Pelvis AP with Bilat Hips min 2 views each (05/06/2015 12:54 PM EDT) Anatomical Region Laterality Modality Pelvis, Hip Bilateral Radiographic Patricia ging 05/06/2015 12:5 4 PM EDT Impressions 05/06/2015 4:37 PM EDT IMPRESSION: Bilateral total hip arthroplasties without complication. This report was reviewed by Damon Hi at 05/06/2015 4:31 PM Film and interpretation reviewed by the attending Narrative 05/06/2015 4:37 PM EDT EXAMINATION: 1 VIEW PELVIS AND 1 VIEW EACH HIP/BILAT CLINICAL HISTORY: BILAT ROBERT R 12/10/01, L 07/14/08 TECHNIQUE: AP pelvis, lateral radiograph of the right and left hip COMPARISON: 06/19/2013 FINDINGS: Bilateral total hip arthroplasties are unchanged in appearance and position. No evidence of hardware failure, periprosthetic lucency or fracture. Surgical clips and phleboliths are seen within the pelvis. Procedure Note Damon Hi MD - 05/06/2015 EXAMINATION: 1 VIEW PELVIS AND 1 VIEW EACH HIP/BILAT CLINICAL HISTORY: BILAT ROBERT R 12/10/01, L 07/14/08 TECHNIQUE: AP pelvis, lateral radiograph of the right and left hip COMPARISON: 06/19/2013 FINDINGS: Bilateral total hip arthroplasties are unchanged in appearance andposition. No evidence of hardware failure, periprosthetic lucency or fracture. Surgicalclips and phleboliths are seen within the pelvis. IMPRESSION IMPRESSION: Bilateral total hip arthroplasties without complication. This report was reviewed by Damon Hi at 05/06/2015 4:31 PM Film and interpretation reviewed by the attending Dave Barragan MD IMG DX ORDERABLES documented in this encounter Visit Diagnoses Diagnosis Aftercare following joint replacement documented in this encounter Care Teams Pension Consultant Relationship Specialty Start Date End Date Carlos Hernandez DO [address] [place] [address] PCP - General 08/16/10 02/25/23 documented as of this encounter
--- OUTSIDE RECORDS SUMMARY | 2024-09-23 14:22 | XMS_ITS | Encounter Summary ---
Author Organization Formerly [facility] Address [facility] Krystle [place] [address] Care Team Providers Care Medical Doctor Md Name Role Phone Carlos Hernandez DO Primary Care Provider [phone] Encounter Details Date Type Department Care Team (Latest Contact Info) Description 10/06/2013 9:15 AM EST - 10/06/2013 11:59 PM [facility] Hospital Encounter XRay at [address] [place] [phone] S/P AVR (aortic valve replacement) and aortoplasty Social History Tobacco Use Types Packs/Day Years [...] Sig Dispensed Refills Start Date End Date acetaminophen (TYLENOL) 500 mg tablet Take 2 [...] 150 mg by mouth 2 times daily. chlorhexidine (PERIDEX) 0.12 % solution as needed. 08/06/2013 03/06/2019 metoprolol tartrate (LOPRESSOR) 25 mg tablet Take 6.25 mg by mouth 2 times daily. 10/27/2013 senna-docusate (PERICOLACE) 8.6-50 mg per tablet Take 2 tablets by mouth daily. 60 tablet 09/06/2013 07/16/2014 ustekinumab (STELARA) 90 mg/mL SyrgIndications:Psor iasis Inject 1 mL subcutaneously Q 3 Months. Then every twelve weeks 1 mL 3 06/19/2013 12/29/2013 Magnesium Chloride 64 mg TbEC Take 64 [...] PM EDT Office Visit Dermatology at [address] [phone] Joyce Snyder MD [facility] [place] [address] documented as of this encounter Procedures Procedure Name Priority Date/Time Associated Diagnosis Comments XR CHEST PA AND LATERAL Routine 10/06/2013 9:21 AM EST S/P AVR (aortic valve replacement) and aortoplasty documented in this encounter Results * XR chest routine PA & lateral (10/06/2013 9:21 AM EST) Anatomical Region Laterality Modality Chest N/A Radiographic Patricia ging 10/06/2013 9:21 AM EST Narrative 10/06/2013 12:58 PM EST Examination CHEST ROUTINE 2 VIEWS Clinical History s/p avr, cabg Comparison September 04, 2013. Technique PA and lateral chest. Findings The previously seen right-sided pleural effusion has resolved and the left-sided pleural effusion is decreased and is now small. ??Improved aeration at the left lung base. ??No new airspace opacification. ??Stable cardiomediastinal silhouette. ??Sternal wires and surgical mediastinal clips. ?? Aortic valve replacement. Impression Improving pleural effusions. Procedure Note Tracy Hill MD - 10/06/2013 Examination CHEST ROUTINE 2 VIEWS Clinical History s/p avr, cabg Comparison September 04, 2013. Technique PA and lateral chest. Findings The previously seen right-sided pleural effusion has resolved and the left-sided pleural effusion is decreased and is now small. Improvedaeration at the left lung base. No new airspace opacification. Stable cardiomediastinal silhouette. Sternal wires and surgical mediastinalclips. Aortic valve replacement. Impression Improving pleural effusions. Mathew Snell MD IMG DX ORDERABLES documented in this encounter Visit Diagnoses Diagnosis S/P AVR (aortic valve replacement) and aortoplasty Heart valve replaced by other means documented in this encounter Care Teams Medical Doctor Md Relationship Specialty Start Date End Date Carlos Hernandez DO [address] [place] [address] PCP - General 08/16/10 02/25/23 documented as of this encounter
--- OUTSIDE RECORDS SUMMARY | 2024-09-23 14:22 | XMS_ITS | Encounter Summary ---
Author Organization [facility] Address [facility] Krystle [place] [address] Care Team Providers Care Site Reliability Engineer Name Role Phone Carlos Hernandez DO Primary Care Provider Encounter Details Date Type Department Care Team (Latest Contact Info) Description 04/20/2017 11:26 AM EDT - 04/20/2017 11:59 PM EDT Hospital Encounter XRay at [address] [place] [address] Tim Hendrix MD [facility] [place] [address] Greater than 50 percent stenosis of carotid artery, bilateral Discharge Disposition: Home Social History Tobacco Use [...] Sig Dispensed Refills Start Date End Date hydroCHLOROthiazide (HYDRODIURIL) 25 mg Tablet Take 25 [...] 150 mg by mouth 2 times daily. secukinumab (COSENTYX, 2 SYRINGES,) 150 mg/mL SyringeIndications:Pso riasis Inject 300 mg subcutaneously once a week. 8 Syringe 3 04/20/2017 05/11/2017 ustekinumab (STELARA) 90 mg/mL SyringeIndications:Pso riasis Inject 1 mL subcutaneously Q 3 Months. 1 mL 3 10/13/2016 05/11/2017 rosuvastatin (CRESTOR) 5 mg TabletIndications:Hype rlipidemia, unspecified hyperlipidemia type Take 1 tablet by mouth daily. 30 tablet 11 07/06/2016 06/18/2017 amLODIPine (NORVASC) 5 mg TabletIndications:Esse ntial hypertension Take 1 tablet by mouth daily. Take each evening in addition to taking the 10 mg each morning 30 tablet 11 07/06/2016 06/18/2017 budesonide-formoterol (SYMBICORT) 160-4.5 mcg/actuation HFA Aerosol Inhaler Inhale 2 puffs into the lungs daily. 05/22/2019 mometasone (NASONEX) 50 mcg/actuation [place], Non-AerosolIndications :as needed 1 spray by Each Nare route as needed. Indications: as needed 09/27/2020 tiotropium (SPIRIVA WITH HANDIHALER) 18 mcg Capsule, w/Inhalation Device Inhale 18 mcg into the lungs daily as needed. 09/27/2020 hydrochlorothiazide (HYDRODIURIL) 25 mg tablet Take 25 mg by mouth daily. 05/11/2017 chlorhexidine (PERIDEX) 0.12 % solution as needed. 08/06/2013 03/06/2019 Magnesium Chloride 64 mg TbEC Take 64 mg by mouth daily. 03/06/2019 documented as of this encounter Plan of Treatment Upcoming Encounters Date Type Department Care Team (Late st Contact Info) Description 12/18/2024 2:00 PM EDT Office Visit Dermatology at [facility] [address] [place] [address] Joyce Snyder MD [facility] [place] [address] documented as of this encounter Goals Goal Patient Goal Type Associated Problems Recent Progress Patient-Stated? Author DH Home Medication Compliance and Understanding Patient Facing Action Plan On track( 018 9:29 AM EST) Jono Madrid, [facility] Note: Patient's specific desired goal: Reduction in psoriasis patches and psoriatic arthritis pain / symptoms. Measured by: pain scale, joints affected, BSA affected by psoriasis Time-frame to meet goal: ongoing - mostly effective at this time documented as of this encounter Procedures Procedure Name Priority Date/Time Associated Diagnosis Comments XR PELVIS AND HIP 2 VIEWS BILATERAL Routine 04/20/2017 11:51 AM EDT Greater than 50 percent stenosis of carotid artery, bilateral documented in this encounter Results * XR Pelvis w AP & Lat Hip Bilat (04/20/2017 11:51 AM EDT) Anatomical Region Laterality Modality Pelvis, Hip Bilateral Digital Radiogra phy Impressions 04/20/2017 3:16 PM EDT Bilateral total hip arthroplasties without complication. I have personally reviewed the image(s) and the residents interpretation and agree with the findings, Perri Cervantes at 04/20/2017 3:16 PM Narrative 04/20/2017 3:16 PM EDT EXAMINATION: XR PELVIS W AP AND LAT HIP BILAT CLINICAL HISTORY: BILATERAL ROBERT TECHNIQUE: AP pelvis and AP and lateral views of bilateral hips COMPARISON: Radiograph of the pelvis ranging from 05/05/2011 to 08/17/2008 FINDINGS: Patient is status post bilateral total hip arthroplasties. No hardware complications. No malalignment. Slight interval increase in heterotopic bone formation involving the left greater trochanter. Procedure Note Perri Cervantes MD - 04/20/2017 EXAMINATION: XR PELVIS W AP AND LAT HIP BILAT CLINICAL HISTORY: BILATERAL ROBERT TECHNIQUE: AP pelvis and AP and lateral views of bilateral hips COMPARISON: Radiograph of the pelvis ranging from 05/05/2011 to 08/17/2008 FINDINGS: Patient is status post bilateral total hip arthroplasties. No hardware complications. No malalignment. Slight interval increase in heterotopicbone formation involving the left greater trochanter. IMPRESSION Bilateral total hip arthroplasties without complication. I have personally reviewed the image(s) and the residents interpretationand agree with the findings, Perri Cervantes at 04/20/2017 3:16 PM Tim Hendrix MD IMG DX ORDERABLES documented in this encounter Visit Diagnoses Diagnosis Greater than 50 percent stenosis of carotid artery, bilateral documented in this encounter Care Teams Site Reliability Engineer Relationship Specialty Start Date End Date Carlos Hernandez DO [address] [place] [address] PCP - General 08/16/10 02/25/23 documented as of this encounter
--- OUTSIDE RECORDS SUMMARY | 2024-09-23 14:22 | XMS_ITS | Encounter Summary ---
Author Organization [facility] [address] Care Team Providers Care Veneer Clipper Name Role Phone Carlos Hernandez DO Primary Care Provider Reason for Visit * Reason Comments Aortic Valve Disorder Encounter Details Date Type Department Care Team (Late st Contact Info) Description 06/29/2015 10:40 AM EDT Office Visit Cardiology at [address] [phone] Williams Miranda MD S/P AVR Social History Tobacco Use Types Packs/Day Years [...] Sign Reading Time Taken Comments Blood Pressure 144/68 06/29/2015 10:54 AM EDT Pulse 56 06/29/2015 10:54 AM EDT Temperature - - Respiratory Rate - - Oxygen Saturation 99% 06/29/2015 10: 54 AM EDT Inhaled Oxygen Concentration - - Weight 130.7 kg (288 lb 1.6 oz) 015 10:54 AM EDT Height 177.8 cm (5' 10) 06/29/2015 10: 54 AM EDT Body Mass Index 41.34 06/29/2015 10:54 AM EDT documented in this encounter Progress Notes * Williams Miranda MD - 06/29/2015 11:08 AM EDT Mr. Rosenthal returns for yearly follow up of his AVR. He is doing well, lost 19#, Trying to exercise more. No chest discomfort. He gets short of breath if he runs uphill, otherwise none. Patient Active Problem List Diagnosis Code ??? Depression F32.9 ??? Psoriasis L40.9 ??? Obesity E66.9 ??? HTN (hypertension) I10 ??? Hyperlipidemia E78.5 ??? GERD (gastroesophageal reflux disease) K21.9 ??? Sleep apnea G47.30 ??? Former smoker Z87.891 ??? 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 Subarachnoid hemorrhage I60.9 ??? Fatty liver K76.0 ??? Pancreatitis K85.9 ??? Cholelithiasis K80.20 ??? Diverticulitis K57.92 ??? Abdominal panniculus E65 ??? (aortic stenosis) I35.0 Current Outpatient Rx Name Route Sig Dispense Refill ??? escitalopram oxalate (LEXAPRO) 10 mg Tablet Oral Take 10 mg by mouth daily. ??? mometasone (NASONEX) 50 mcg/actuation [place], Non-Aerosol Nasal 50 mcg by Nasal route. ??? EPINEPHrine (EPIPEN) 0.3 mg/0.3 mL (1:1,000) Auto-Injector Intramuscular Inject 0.3 mg into the muscle once. ??? losartan (COZAAR) 100 mg Tablet Oral Take 100 mg by mouth daily. ??? amLODIPine (NORVASC) 5 mg Tablet Oral Take 10 mg by mouth daily. ??? tiotropium (SPIRIVA WITH HANDIHALER) 18 mcg Capsule, w/Inhalation Device Inhalation Inhale 18 mcg into the lungs daily. ??? ustekinumab (STELARA) 90 mg/mL Syringe Subcutaneous Inject 1 mL subcutaneously Q 3 Months. 1 mL 3 Form manually faxed to pharmacy. ??? hydrochlorothiazide (HYDRODIURIL) 25 mg tablet Oral Take 25 mg by mouth daily. ??? chlorhexidine (PERIDEX) 0.12 % solution as needed. ??? acetaminophen (TYLENOL) 500 mg tablet Oral Take 2 tablets by mouth every 6 hours. 30 tablet ??? Magnesium Chloride 64 mg TbEC Oral Take by mouth. ??? traZODone (DESYREL) 50 mg tablet Oral Take 50 mg by mouth nightly. ??? aspirin 81 mg chewable tablet Oral Take 81 mg by mouth daily. ??? Fenofibric Acid (TRILIPIX) 135 mg CpDR Oral Take 1 tablet by mouth daily. ??? ranitidine (ZANTAC) 150 mg tablet Oral Take 150 mg by mouth 2 times daily. ??? budesonide-formoterol (SYMBICORT) 160-4.5 mcg/actuation HFA Aerosol Inhaler Inhalation Inhale into the lungs. ??? amoxicillin (AMOXIL) 500 mg capsule Oral Take 2,000 mg by mouth See Admin Instructions. Takes before Dental procedure. TAKE 4 TABLETS ONE HOUR BEFORE DENTAL PROCEDURES ??? DISCONTD: citalopram (CELEXA) 20 mg tablet Oral Take 20 mg by mouth daily. ??? DISCONTD: epiNEPHrine (EPIPEN JR.) 0.15 mg/0.3 mL PnIj injection Intramuscular Inject into the muscle as needed. Allergies Allergen Reactions ??? Vicodin [Hydrocodone-Acetaminophen] Shortness Of Breath Problems breathing ??? Morphine Sulfate Nausea And Vomiting ??? Bee Venom (Honey Bee) ??? Clarithromycin ??? Hydrocodone Bitartrate ??? Indomethacin ??? Lansoprazole ??? Lipitor [Atorvastatin] Joint pain ??? Other [Unclassified Drug] IV dyes ??? Pravastatin Sodium ??? Tetracyclines BP 144/68 mmHg Pulse 56 Ht 177.8 cm (5' 10) Wt 130.681 kg (288 lb 1.6 oz) BMI 41.34 kg/m2 SpO2 99% Chest - clear Cor - valve sounds crisp, + prosthetic flow murmur I&P: He is doing well 2 years s/p AVR. Encouraged to continue weight loss. RV 1 year with echo. documented in this encounter Plan of Treatment Upcoming Encounters Date Type Department Care Team (Late st Contact Info) Description 12/18/2024 2:00 PM EDT Office Visit Dermatology at [address] [place] [phone] Joyec Snyder MD [facility] [address] documented as of this encounter Visit Diagnoses Diagnosis S/P AVR Heart valve replaced by other means documented in this encounter Care Teams Veneer Clipper Relationship Specialty Start Date End Date Carlos Hernandez DO [address] [place] [address] PCP - General 08/16/10 02/25/23 documented as of this encounter
--- OUTSIDE RECORDS SUMMARY | 2024-09-23 14:22 | XMS_ITS | Encounter Summary ---
Author Organization [facility] Address [facility] [place] [address] Care Team Providers Care Director Industrial Nursing Name Role Phone Carlos Hernandez DO Primary Care Provider Reason for Visit * Reason Comments Psoriatic Arthropathy Encounter Details Date Type Department Care Team (Late st Contact Info) Description 10/27/2013 1:00 PM EST [place] [phone] Lan Singh MD [facility] [address] Back pain (Primary Dx) Discharge Disposition: Home Social History [...] Sign Reading Time Taken Comments Blood Pressure 123/66 10/27/2013 1:07 PM EST Pulse 51 10/27/2013 1:07 PM EST Temperature 37.1 ??C (98.7 ??F) 10/27/2013 1:07 PM ES T Respiratory Rate - - Oxygen Saturation 96% 10/27/2013 1:07 PM EST Inhaled Oxygen Concentration - - Weight 125.6 kg (277 lb) 10/27/2013 1:07 PM EST Height 177.8 cm (5' 10) 10/27/2013 1:07 PM EST Body Mass Index 39.75 10/27/2013 1:07 PM EST documented in this encounter Progress Notes * Lan Singh MD - 10/27/2013 1:31 PM EST Rheumatology Outpatient Progress Note Problem List Patient Active Problem List Diagnosis Date Noted ??? (aortic stenosis) 08/19/2013 ??? Obesity 04/22/2012 [...] 04/22/2012 ??? Psoriasis 05/05/2011 ??? Depression 05/04/2011 Interval History: Raghu Rosenthal is a 68 y.o. male returns today for f/u of psoriasis, psoriatic arthritis, sleep apnea, osteoarthritis, dyshidrotic eczema, AVN of both hips, fibromyalgia, status post arachnoid hemorrhage in 01/28/2007 without a clear cut cause, and status post bilateral hip replacement, the right in 2001 and the left in 2008 with good results. Recent worsening of psoriasis in spite of MTX then st opped MTX because of headaches and concerns about hepatotoxcity. Psoriasis ans psoriatic arthritis worse but not big difference atfer stopping MTX Lopezara was approved and now had 2 shots with excellent response after the second In the interim he had AVR and double bypass with good results and continues to be free of psoriasisand psoriatic arthritis ROS: General (-)fevers, (-)chills, (-)night sweats, (-)wt loss/gain, (-)fatigue HEENT (-)vision change, (-)oral ulcers, (-)dry eyes, (-)dry mouth, (-)hair loss CVS (+)chest pain at there incision, (-)palpitations, (-)pedal edema Pulm (-)shortness of breath, (-)JORDAN, (-)wheezes, (-)cough, (-)pleuritic pain GI (-)N/V, (-)abdominal pain, (-)emesis, (-)change in appetite (-)hematuria, (-)dysuria MS (-)muscle weakness, (-)joint pain, (-)joint swelling Endo (-)thyroid disorders, (-)diabetes Neuro (-)focal weakness, (-)paresthesias, (-)gait instability. Skin (-)Raynaud's, (-)rashes, (-)ulcers, (-)photo sensitivity Psych (-) mood disorder Current Outpatient Prescriptions Medication Sig Dispense Refill ??? metoprolol tartrate (LOPRESSOR) 25 mg tablet Take 25 mg by mouth daily. ??? hydrochlorothiazide (HYDRODIURIL) 25 mg tablet Take 25 mg by mouth daily. ??? POLY-IRON 150 FORTE 150-25-1 mg-mcg-mg Cap ??? ferrous sulfate 325 mg (65 mg iron) EC tablet Take 325 mg by mouth daily. ??? acetaminophen (TYLENOL) 500 mg tablet Take 2 tablets by mouth every 6 hours. 30 tablet ??? HYDROmorphone (DILAUDID) 2 mg tablet Take 1-3 tablets by mouth every 4 hours as needed for Pain. 100 tablet 0 ??? senna-docusate (PERICOLACE) 8.6-50 mg per tablet Take 2 tablets by mouth daily. 60 tablet ??? amoxicillin (AMOXIL) 500 mg capsule Take 500 mg by mouth 4 times daily. Takes before Dental procedure Indications: Pneumococcal Pneumonia ??? ustekinumab (STELARA) 90 mg/mL Syrg Inject 1 mL subcutaneously Q 3 Months. Then every twelve weeks 1 mL 3 ??? Magnesium Chloride 64 mg TbEC Take by mouth. ??? citalopram (CELEXA) 20 mg tablet Take 20 mg by mouth daily. ??? traZODone (DESYREL) 50 mg tablet Take 50 mg by mouth nightly. ??? aspirin 81 mg chewable tablet Take 81 mg by mouth daily. ??? Fenofibric Acid (TRILIPIX) 135 mg CpDR Take 1 tablet by mouth daily. ??? epiNEPHrine (EPIPEN JR.) 0.15 mg/0.3 mL PnIj injection Inject into the muscle as needed. ??? ranitidine (ZANTAC) 150 mg tablet Take 150 mg by mouth 2 times daily. ??? chlorhexidine (PERIDEX) 0.12 % solution as needed. ??? gabapentin (NEURONTIN) 100 mg capsule Take 3 capsules by mouth nightly. Start 100mg at night x3, then increase to 200mg x 3, then 300mg nightly. 90 capsule 3 No current facility-administered medications for this visit. Facility-Administered Medications Ordered in Other Visits Medication Dose Route Frequency Provider Last Rate Last Dose ??? metoprolol (LOPRESSOR) injection 2.5 mg 2.5 mg Intravenous Q5 Min PRN Garth Watt MD 2.5mg at 08/04/13 0915 Allergies Allergen Reactions ??? Vicodin (Hydrocodone-Acetaminophen) Shortness Of Breath Problems breathing ??? Morphine Sulfate Nausea And Vomiting ??? Bee Venom (Honey Bee) ??? Clarithromycin ??? Hydrocodone Bitartrate ??? Indomethacin ??? Lansoprazole ??? Lipitor (Atorvastatin) Joint pain ??? Other (Unclassified Drug) IV dyes ??? Pravastatin Sodium ??? Prednisone ??? Tetracyclines Physical Exam: BP 123/66 Pulse 51 Temp 37.1 ??C (98.7 ??F) (Oral) Ht 177.8 cm (5' 10) Wt 125.646 kg (277 lb) BMI 39.75 kg/m2 SpO2 96% General: AAOx3, NAD, pleasant HEENT: PERRL, Mucous membranes are moist, no oral mucosal ulcerations, Neck: Supple, no lymphadenopathy, full range of motion. Cardiovascular: RR, (-)murmurs, rubs, or gallops scar well healed. Lungs: Clear to auscultation bilaterally, (-)R/R/W Abdomen: Soft, nontender, nondistended, normal active bowel sounds, no hepatosplenomegaly. Back: Nontender over the spine and costovertebral angles bilaterally. Neuro: Alert and oriented x3. Cranial nerves II through XII grossly intact. Strength 5/5 throughout, Sensation to light touch is grossly normal throughout. DTRs are 2+ throughout. Skin: (-)ulcers, (-)rash Extremities Shoulders: FROM, non-tender to palpation Elbows:FROM, (-)pain, (-)nodules Wrists: FROM, no swelling, non-tender Hands: No synovitis, no MCP compression tenderness, full claw and fist. Hips: FROM Knees: (-)effusions, non-tender ROM +SLR in L45 distribution Assessment: Raghu Rosenthal is a 68 y.o. male who returns in follow up of psoriasis and psoriatic arthritis doing well asymptomatic from CV standpoint except incisional pain Plan: Trial gabapentin for incisional pain and the sciatica RTC 3 m Will be in [place] documented in this encounter Plan of Treatment Upcoming Encounters Date Type Department Care Team (Late st Contact Info) Description 12/18/2024 2:00 PM EDT Office Visit Dermatology at [address] [phone] Joyce Snyder MD [facility] [place] [address] documented as of this encounter Visit Diagnoses Diagnosis Back pain- Primary Backache, unspecified documented in this encounter Care Teams Director Industrial Nursing Relationship Specialty Start Date End Date Carlos Hernandez DO [address] [facility] [address] [place] [address] PCP - General 08/16/10 02/25/23 documented as of this encounter
--- OUTSIDE RECORDS SUMMARY | 2024-09-23 14:22 | XMS_ITS | Encounter Summary ---
Author Organization [facility] [place] [address] Care Team Providers Care Director Emergency Name Role Phone Carlos Hernandez DO Primary Care Provider Encounter Details Date Type Department Care Team (Latest Contact Info) Description 07/06/2016 10:20 AM EDT Office Visit Cardiology at [address] [phone] Raghu Graham MD Aortic valve stenosis, unspecified etiology; Coronary artery disease, angina presence unspecified, unspecified vessel or lesion type, unspecified whether [place] or transplanted heart; Hyperlipidemia, unspecified hyperlipidemia type; Essential hypertension; Obesity, unspecified obesity severity, unspecified obesity type Social History Tobacco Use Types Packs/Day [...] Sign Reading Time Taken Comments Blood Pressure 150/78 07/06/2016 10:06 AM EDT Pulse 60 07/06/2016 10:06 AM EDT Temperature - - Respiratory Rate - - Oxygen Saturation 92% 07/06/2016 10: 06 AM EDT Inhaled Oxygen Concentration - - Weight 139.6 kg (307 lb 12.8 oz) 2015 10:06 AM EDT Height 177.8 cm (5' 10) 07/06/2016 10: 06 AM EDT Body Mass Index 44.16 07/06/2016 10:06 AM EDT documented in this encounter Progress Notes * Raghu Graham MD - 07/06/2016 10:20 AM EDT Images from the original note were not included. [place] [address] [address] CARDIOLOGY OUTPATIENT FOLLOW-UP NOTE PRIMARY CARE PROVIDER: CARLOS HERNANDEZ DO REFERRING PROVIDER: Raghu Graham PROBLEM LIST: Patient Active Problem List Diagnosis ??? CAD (coronary artery disease) S/p CABG [...] Outpatient Prescriptions Medication Sig Dispense Refill ??? escitalopram (LEXAPRO) 20 mg Tablet Take 20 mg by mouth daily. ??? traZODone (DESYREL) 100 mg Tablet Take 100 mg by mouth nightly. ??? ustekinumab (STELARA) 90 mg/mL Syringe Inject 1 mL subcutaneously Q 3 Months. 1 mL 3 ??? budesonide-formoterol (SYMBICORT) 160-4.5 mcg/actuation HFA Aerosol Inhaler Inhale into the lungs. ??? mometasone (NASONEX) 50 mcg/actuation [place], Non-Aerosol 50 mcg by Nasal route. ??? EPINEPHrine (EPIPEN) 0.3 mg/0.3 mL (1:1,000) Auto-Injector Inject 0.3 mg into the muscle once. ??? losartan (COZAAR) 100 mg Tablet Take 100 mg by mouth daily. ??? amLODIPine (NORVASC) 5 mg Tablet Take 10 mg by mouth daily. ??? [...] mg by mouth 2 times daily. ??? rosuvastatin (CRESTOR) 5 mg Tablet Take 1 tablet by mouth daily. 30 tablet 11 ??? amLODIPine (NORVASC) 5 mg Tablet Take 1 tablet by mouth daily. Take each evening in addition totaking the 10 mg each morning 30 tablet 11 No current facility-administered medications for this visit. Subjective: Patient ID: Raghu Roesnthal is a 70 y.o. male who presents for followup; former Dr. Miranda patient. HPI Mr. Rosenthal is s/p CABGx3/tissue AVR/aortoplasty in 2013. Overall, doing well from a cardiovascular standpoint. He notes some afternoon fatigue, but remains quite active. He does not go to the gym, but is physically busy much of the time. He takes antibiotics prior to dental work. Review of Systems Constitutional: Positive for fatigue. Negative for appetite change, fever and unexpected weight change. Respiratory: Negative. Cardiovascular: Negative. Gastrointestinal: Negative. Genitourinary: Negative. Neurological: Negative. Hematological: Negative. Family history: no known valve disease in the family Social history: retired from [employer]; lives in [place], [place]; former smoker, stopped 1998; occasional alcohol Objective: Physical Exam Constitutional: Overweight gentleman; no distress. HENT: Head: Normocephalic. Neck: Neck supple. No JVD present. Cardiovascular: Normal rate, regular rhythm and intact distal pulses. Exam reveals no friction rub. Murmur heard. Mid-sternal scar, well-healed; KANIKA at base. Pulmonary/Chest: Effort normal. Abdominal: Soft. Musculoskeletal: Normal range of motion. Neurological: He is alert. Skin: Skin is warm. Vitals: 07/06/16 1006 BP: 150/78 Pulse: 60 Recent Results (from the past 72 hour(s)) Echocardiogram Transthoracic(Leb) Result Value EF 65 EKG 12 Lead Result Value Ventricular rate 57 Atrial Rate 57 P-R Interval 178 QRS Duration 110 Q-T Interval 416 QTC Calculated (Bezet) 404 Calculated P [place] 43 Calculated R [place] 34 Calculated T [place] 70 INTERPRETATION Sinus bradycardia Incomplete left bundle block T wave abnormality, consider lateral ischemia Abnormal ECG When compared with ECG of 06-OCT-2013 10:38, T wave inversion no longer evident in Inferior leads T wave inversion no longer evident in Anterior leads Echo today, 07/06/2016: SUMMARY: 1. Mild concentric left ventricular [...] See remainder of report for additional findings. ?? Findings : ? Left Ventricle: The left [...] There is mild (1+/4+) mitral regurgitation present. ?? Tricuspid Valve: The tricuspid valve appears normal in structure and function. There is trace tricuspid regurgitation present. ?? Pulmonic Valve: The pulmonic valve appears normal in structure and function. There is trace pulmonic regurgitation present. ?? Pericardium: The pericardium appears normal and there is no evidence of a pericardial effusion. ?? Aorta: The aortic root is normal in size. The ascending aorta is normal in size. ?? Pulmonary Artery: The main pulmonary artery appears normal. ?? Venous: The inferior vena cava appears normal in size. There is a greater than 50% respiratory change in the inferior vena cava dimension. Echo 2014: SUMMARY: 1. Mild concentric left [...] See remainder of report for additional findings. ?? FINDINGS: ? Left Ventricle The left ventricular [...] chord is observed in the left ventricle. ?? Left Atrium The left atrium is mildly dilated. ?? Right Ventricle The right ventricle is normal in size. Right ventricular global systolic function is normal. Pulmonary artery hypertension could not be assessed due to inadequate tricuspid regurgitation jet. ? Right Atrium The right atrium is mildly dilated. ?? Aortic Valve The mean trans-valvular gradient across the aortic valve is 11 mmHg. The size of the prosthetic aortic valve is 25mm. The prosthetic aortic valve was implanted on 09/02/2013. A bovine bio-prosthetic aortic valve is present. The bio-prosthetic aortic valve appears well seated with normal function. There is no prosthetic aortic valve regurgitation present. ?? Mitral Valve The mitral valve appears normal in structure and function. There is trace mitral regurgitation present. ?? Tricuspid Valve The tricuspid valve appears normal in structure and function. There is trace tricuspid regurgitation present. ?? Pulmonic Valve The pulmonic valve appears normal in structure and function. There is trace pulmonic regurgitation present. ?? Pericardium The pericardium appears normal and there is no evidence of a pericardial effusion. ?? Aorta The aortic root is normal in size. The ascending aorta is normal in size. ?? Pulmonary Artery The main pulmonary artery appears normal. ?? Venous The inferior vena cava appears normal in size. There is a greater than 50% respiratory change in the inferior vena cava dimension. Assessment and Plan: (aortic stenosis) Echo today appears stable. S/p tissue AVR. Doing well. Continue with antibiotic prophylaxis prior to dental work. Hyperlipidemia He has had some intolerance to statin (Lipitor). Given his extensive CAD, will retry statin therapyat low dose (Crestor 5 mg daily). He is followed at the [facility] for labs. CAD (coronary artery disease) Secondary prevention with diet/exercise/weight control. He understands the importance of weight management. Continue with aspirin, BP control and attempt to restart statin therapy. No need for further CV testing at the present time. HTN (hypertension) Mr. Rosenthal is on numerous BP medications, but has noted am hypertension. Will add an additional 5 mgof amlodipine to be taken each evening to address his morning hypertension. I am reluctant to starta beta-ricardo due to resting bradycardia and low heart rate with prior beta-ricardo use. Obesity Obesity remains an issue. I reinforced the need for a heart healthy diet and a focus on weight reduction. Thank you for the opportunity to participate in this patient's cardiovascular care. All questions were answered and I look forward to the next visit. documented in this encounter Miscellaneous Notes * Assessment & Plan Note - Raghu Graham MD - 07/06/2016 3:22 PM EDT Associated Problem(s): Obesity Obesity remains an issue. I reinforced the need for a heart healthy diet and a focus on weight reduction. * Assessment & Plan Note - Raghu Graham MD - 07/06/2016 10:44 AM EDT Associated Problem(s): HTN (hypertension) Mr. Rosenthal is on numerous BP medications, but has noted am hypertension. Will add an additional 5 mgof amlodipine to be taken each evening to address his morning hypertension. I am reluctant to starta beta-ricardo due to resting bradycardia and low heart rate with prior beta-ricardo use. * Assessment & Plan Note - Raghu Graham MD - 07/06/2016 10:43 AM EDT Associated Problem(s): CAD (coronary artery disease) Secondary prevention with diet/exercise/weight control. He understands the importance of weight management. Continue with aspirin, BP control and attempt to restart statin therapy. No need for further CV testing at the present time. * Assessment & Plan Note - Raghu Graham MD - 07/05/2016 3:42 PM EDT Associated Problem(s): Hyperlipidemia He has had some intolerance to statin (Lipitor). Given his extensive CAD, will retry statin therapyat low dose (Crestor 5 mg daily). He is followed at the [facility] for labs. * Assessment & Plan Note - Raghu Graham MD - 07/05/2016 3:40 PM EDT Associated Problem(s): Nonrheumatic aortic (valve) stenosis Echo today appears stable. S/p tissue AVR. Doing well. Continue with antibiotic prophylaxis prior to dental work. documented in this encounter Plan of Treatment Upcoming Encounters Date Type Department Care Team (Late st Contact Info) Description 12/18/2024 2:00 PM EDT Office Visit Dermatology at [facility] [address] [facility] [place] [address] Joyce Snyder MD [facility] [place] [address] documented as of this encounter Procedures Procedure Name Priority Date/Time Associated Diagnosis Comments EKG 12-LEAD Routine 07/06/2016 10:12 AM EDT Aortic valve stenosis, unspecified etiology documented in this encounter Results * EKG 12 Lead (07/06/2016 10:12 AM EDT) Ventricular rate 57 BPM MUSE SYSTEM Atrial Rate 57 BPM MUSE SYSTEM P-R Interval 178 ms MUSE SYSTEM QRS Duration 110 ms MUSE SYSTEM Q-T Interval 416 ms MUSE SYSTEM QTC Calculated (Bezet) 404 ms MUSE SYSTEM Calculated P [place] 43 degrees MUSE SYSTEM Calculated R [place] 34 degrees MUSE SYSTEM Calculated T [place] 70 degrees MUSE SYSTEM INTERPRETATION Sinus bradycardia Incomplete left bundle block T wave abnormality, consider lateral ischemia Abnormal ECG When compared with ECG of 06-OCT-2013 10:38, T wave inversion no longer evident in Inferior leads T wave inversion no longer evident in Anterior leads Confirmed by MD CURT, CARLOTA ([id number]) on 07/06/2016 10:01:30 PM MUSE SYSTEM 07/06/2016 10:1 2 AM EDT 07/06/2016 10:01 PM EDT aRghu Graham MD ECG ORDERABLES [place] [facility] documented in this encounter Visit Diagnoses Diagnosis Aortic valve stenosis, unspecified etiology Coronary artery disease, angina presence unspecified, unspecified vessel or lesion type, unspecified whether [place] or transplanted heart Hyperlipidemia, unspecified hyperlipidemia type Essential hypertension Unspecified essential hypertension Obesity, unspecified obesity severity, unspecified obesity type documented in this encounter Care Teams Director Emergency Relationship Specialty Start Date End Date Carlos Hernandez DO [address] [facility] [address] [place] [address] PCP - General 08/16/10 02/25/23 documented as of this encounter
--- OUTSIDE RECORDS SUMMARY | 2024-09-23 14:22 | XMS_ITS | Encounter Summary ---
Author Organization [place] [address] Care Team Providers Care Seafood Clerk Name Role Phone Carlos Hernandez DO Primary Care Provider Encounter Details Date Type Department Care Team (Late st Contact Info) Description 03/16/2015 Orders [place] [phone] Dave Barragan MD Aftercare following joint replacement Social History Tobacco [...] 2:00 PM EDT Office Visit Dermatology at [facility] [address] [place] [phone] Joyce Snyder MD [facility] [place] [address] documented as of this encounter Results * XR Pelvis AP [...] Visit Diagnoses Diagnosis Aftercare following joint replacement Aftercare following joint replacement documented in this encounter Care Teams Seafood Clerk Relationship Specialty Start Date End Date Carlos Hernandez DO [address] [place] [address] PCP - General 08/16/10 02/25/23 documented as of this encounter
--- OUTSIDE RECORDS SUMMARY | 2024-09-23 14:22 | XMS_ITS | Encounter Summary ---
Author Organization [facility] [place] [address] Care Team Providers Care Installer Interior Assemblies Name Role Phone Carlos Hernandez DO Primary Care Provider [phone] Reason for Visit * Reason Comments Wound Check Encounter Details Date Type Department Care Team (Late st Contact Info) Description 10/06/2013 10:50 AM EST Office Visit [place] [address] Mathew Snell MD S/P AVR (aortic valve replacement) and aortoplasty (Primary Dx) Discharge Disposition: Home Social History [...] Sign Reading Time Taken Comments Blood Pressure 130/70 10/06/2013 10:28 AM EST Pulse 59 10/06/2013 10:28 AM EST Temperature - - Respiratory Rate - - Oxygen Saturation 97% 10/06/2013 10: 28 AM EST Inhaled Oxygen Concentration - - Weight 125.8 kg (277 lb 4.8 oz) 014 10:28 AM EST Height 177.8 cm (5' 10) 10/06/2013 10: 28 AM EST Body Mass Index 39.79 10/06/2013 10:28 AM EST documented in this encounter Progress Notes * Mathew Snell MD - 10/06/2013 11:43 AM EST Followup Note Mr. Rosenthal I met in hospital for an AVR CABG that Dr. Miranda saw as an inpatient. Mr. Rosenthal is doing relatively well. He is still a little bit woozy with some weak legs, and his breathing is still a little bit short, but getting better. He has no angina. He has not started driving, and he has not started his cardiac rehabilitation yet. His vital signs are stable. His wound is clean, dry, and intact. He has a maculopapular rash on his abdomen and has started iron recently. His lungs are clear. His sternum feels stable. His legs do not have any swelling. His echocardiogram shows a well-seated valve with some echocardiogram artifact, and his ventricular function is good. His chest x-ray shows a small left pleural effusion, and his EKG shows no acute changes. Impression: 1. Mr. Rosenthal is recovering as expected. There is nothing to do about the effusion. 2. I have changed his beta ricardo to 12.5 once a day. 3. I have suggested but cannot confirm that possibly the iron is giving him that rash since none of his other medications are new to him. 4. He is going to start cardiac rehabilitation. 5. He can start driving. 6. He can lift up to 20 pounds for one month. 7. He is going to make a followup appointment with Dr. Miranda in the next one to two months. documented in this encounter Plan of Treatment Upcoming Encounters Date Type Department Care Team (Late st Contact Info) Description 12/18/2024 2:00 PM EDT Office Visit Dermatology at [address] [place] [address] Joyce Snyder MD [facility] [place] [address] documented as of this encounter Procedures Procedure Name Priority Date/Time Associated Diagnosis Comments EKG 12-LEAD Routine 10/06/2013 10:38 AM EST S/P AVR (aortic valve replacement) and aortoplasty documented in this encounter Results * EKG 12 Lead (10/06/2013 10:38 AM EST) Ventricular rate 64 BPM MUSE SYSTEM Atrial Rate 64 BPM MUSE SYSTEM P-R Interval 188 ms MUSE SYSTEM QRS Duration 108 ms MUSE SYSTEM Q-T Interval 436 ms MUSE SYSTEM QTC Calculated (Bezet) 449 ms MUSE SYSTEM Calculated P [place] 63 degrees MUSE SYSTEM Calculated R [place] 64 degrees MUSE SYSTEM Calculated T [place] -115 degrees MUSE SYSTEM INTERPRETATION Normal sinus rhythm T wave abnormality, consider inferior ischemia T wave abnormality, consider anterolateral ischemia Abnormal ECG When compared with ECG of 22-FEB-2009 11:40, T wave inversion now evident in Inferior leads T wave inversion now evident in Anterolateral leads Confirmed by MD Pepito, John ([id number]) on 10/07/2013 8:19:01 AM MUSE SYSTEM 10/06/2013 10:3 8 AM EST 10/07/2013 8:19 AM EST Mathew Snell MD ECG ORDERABLES MUSE SYSTEM documented in this encounter Visit Diagnoses Diagnosis S/P AVR (aortic valve replacement) and aortoplasty- Primary Heart valve replaced by other means documented in this encounter Care Teams Installer Interior Assemblies Relationship Specialty Start Date End Date Carlos Hernandez DO [address] [place] [address] [address] [facility] 1 [place] [address] PCP - General 08/16/10 02/25/23 documented as of this encounter
--- OUTSIDE RECORDS SUMMARY | 2024-09-23 14:22 | XMS_ITS | Encounter Summary ---
Author Organization [facility] Address [address] [facility] [place] [address] Care Team Providers Care Dishing Machine Operator Name Role Phone Carlos Hernandez DO Primary Care Provider Encounter Details Date Type Department Care Team (Late st Contact Info) Description 05/06/2015 12:33 PM EDT - 05/06/2015 11:59 PM EDT Hospital Encounter XRay at [facility] [place] [place] [address] [facility] [place] [address] Psoriasis Social History Tobacco Use Types Packs/Day [...] 2:00 PM EDT Office Visit Dermatology at [address] [phone] Joyce Snyder MD [facility] [place] [address] documented as of this encounter Procedures Procedure Name Priority Date/Time Associated Diagnosis Comments XR LUMBAR SPINE 2 OR 3 VIEWS Routine 05/06/2015 12:54 PM EDT Psoriasis documented in this encounter Results * XR lumbar spine 2 or 3 views (05/06/2015 12:54 PM EDT) Anatomical Region Laterality Modality L-spine N/A Radiographic Patricia ging 05/06/2015 12:5 4 PM EDT Impressions 05/06/2015 2:41 PM EDT IMPRESSION: Moderate 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 Narrative 05/06/2015 2:41 PM EDT EXAMINATION: LSPINE 2 OR 3 VIEWS CLINICAL HISTORY: back pain psoriasis TECHNIQUE: AP and lateral radiographs of the lumbar spine. COMPARISON: None FINDINGS: There are 5 nonrib-bearing lumbar vertebral bodies present. No acute fracture or dislocation is seen. There is slight levocurvature of the lumbar spine centered at L3. There is moderate degenerative change within the lower lumbar spine with intervertebral disc space narrowing, spurring, and facet arthropathy; most pronounced at L4/L5 and L5/S1. Aortic vascular calcifications are seen. 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 Procedure Note Iraj Stewart MD - 05/06/2015 EXAMINATION: LSPINE 2 OR 3 VIEWS CLINICAL HISTORY: back pain psoriasis TECHNIQUE: AP and lateral radiographs of the lumbar spine. COMPARISON: None FINDINGS: There are 5 nonrib-bearing lumbar vertebral bodies present. No acutefracture or dislocation is seen. There is slight levocurvature of the lumbar spinecentered at L3. There is moderate degenerative change within the lower lumbar spinewith intervertebral disc space narrowing, spurring, and facet arthropathy;most pronounced at L4/L5 and L5/S1. Aortic vascular calcifications are seen.Surgical clips project over the pelvis and partial visualization of bilateral totalhip arthroplasties is seen. 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 Lan Singh MD IMG DX ORDERABLES documented in this encounter Visit Diagnoses Diagnosis Psoriasis Other psoriasis documented in this encounter Care Teams Dishing Machine Operator Relationship Specialty Start Date End Date Carlos Hernandez DO [address] [place] [address] PCP - General 08/16/10 02/25/23 documented as of this encounter
--- OUTSIDE RECORDS SUMMARY | 2024-09-23 14:22 | XMS_ITS | Encounter Summary ---
Author Organization [facility] [place] [address] Care Team Providers Care Belt Sander Name Role Phone Carlos Hernandez DO Primary Care Provider Reason for Visit * Reason Onset Date Comments Medication Refill 01/28/2015 Encounter Details Date Type Department Care Team (Late st Contact Info) Description 01/28/2015 [place] [phone] Tisha Post V RN Psoriasis Social History Tobacco Use Types [...] 2:00 PM EDT Office Visit Dermatology at [facility] [address] [place] [phone] Joyce Snyder MD [facility] [place] [address] documented as of this encounter Visit Diagnoses Diagnosis Psoriasis Other psoriasis documented in this encounter Care Teams Belt Sander Relationship Specialty Start Date End Date Carlos Hernandez DO [address] [place] [address] PCP - General 08/16/10 02/25/23 documented as of this encounter
--- OUTSIDE RECORDS SUMMARY | 2024-09-23 14:22 | XMS_ITS | Encounter Summary ---
Author Organization [facility] Address [facility] [place] [address] Care Team Providers Care Administrative Assistant Name Role Phone Carlos Hernandez DO Primary Care Provider Reason for Visit * Reason Onset Date Comments Medication Refill 02/11/2016 Encounter Details Date Type Department Care Team (Late st Contact Info) Description 02/11/2016 [place] [address] Lan Singh MD [facility] [place] [address] Psoriasis Social History Tobacco Use Types Packs/Day [...] Dermatology at [facility] [address] [place] [address] Joyce Snyder MD [facility] [place] [address] documented as of this encounter Visit Diagnoses Diagnosis Psoriasis Other psoriasis documented in this encounter Care Teams Administrative Assistant Relationship Specialty Start Date End Date Carlos Hernandez DO [address] [place] [address] PCP - General 08/16/10 02/25/23 documented as of this encounter
--- OUTSIDE RECORDS SUMMARY | 2024-09-23 14:22 | XMS_ITS | Encounter Summary ---
[place] [address] Care Team Providers Care Work Manager Name Role Phone Carlos Hernandez DO Primary Care Provider Reason for Visit * Reason Onset Date Comments Other 10/29/2015 update Encounter Details Date Type Department Care Team (Late st Contact Info) Description 10/29/2015 Tele[place] [phone] Jazmine García RN Other (update) Social History Tobacco Use Types Packs/Day Years [...] Telephone Encounter - Jazmine García RN - 10/29/2015 1:33 PM EST Received message from Raghu Morgan's letting us know that his rash has resolved since stopping the Leflunomide. documented in this encounter Plan of Treatment Upcoming Encounters Date Type Department Care Team (Late st Contact Info) Description 12/18/2024 2:00 PM EDT Office Visit Dermatology at [address] [place] [address] Joyce Snyder MD [facility] [place] [address] documented as of this encounter Visit Diagnoses Not on filedocumented in this encounter Care Teams Work Manager Relationship Specialty Start Date End Date Carlos Hernandez DO [address] [facility] [facility] [address] [place] [address] PCP - General 08/16/10 02/25/23 documented as of this encounter
--- OUTSIDE RECORDS SUMMARY | 2024-09-23 14:22 | XMS_ITS | Encounter Summary ---
Author Organization [facility] [place] [address] Care Team Providers Care Mosquito Sprayer Name Role Phone Carlos Hernandez DO Primary Care Provider Reason for Referral * Diagnostic Test (Routine) - Closed Specialty Diagnoses / Procedures Referred By Guanaco marie Referred To Contact Cardiology Diagnoses Aortic valve stenosis, unspecified etiology Procedures Echocardiogram Transthoracic(Leb) Irving Graham MD [facility] [address] [place] [address] Referral ID Status Reason Start Date Expiration Date V isits Requested Visits Authorized [id number] Closed Specialty Service Requested 06/28/2016 06/28/2017 1 1 Encounter Details Date Type Department Care Team (Late st Contact Info) Description 06/28/2016 Orders Only Cardiology at [address] [address] Irving Graham MD Aortic valve stenosis, unspecified etiology Social History Tobacco Use Types Packs/Day Years [...] EDT Office Visit Dermatology at [facility] [address] [place] [address] Joyce Snyder MD [facility] [address] documented as of this encounter Results * ECHO COMPLETE (07/06/2016 8:44 AM EDT) EF 65 HEARTLAB SYSTEM Anatomical Region Laterality Modality Other 07/06/2016 Narrative 07/06/2016 8:54 AM EDT Procedure: ?Transthoracic Echocardiogram Patient: ?KARLA VILLATORO W ? (Age): 1945(70y) Med Rec#: ? [id number] ?Sex: ?M ? [place] Loc: ? [facility] [place]Ht / Wt: ??178(cm)/137(kg) Pt. Loc: ?Echo Lab ?BSA: ?2.49 Study Date: ?? 07/06/2016 ?Pt. Type: Outpatient Tape: ? Referring: Irving Graham ([id number]) Referring: BROWN Reading: Garth Watt ([id number]) Coal Crusher Operator: Parisa Peñaloza Diagnosis: *ICD-10-PCS Nonrheumatic aortic (valve) stenosis (I35.0) CPT Codes: *Echo Full (05598) *Spectral Doppler (07224) *Color Doppler (15698) BP: ? 186/64 SUMMARY: 1. Mild concentric left ventricular hypertrophy is observed. There is normal global left ventricular systolic function. ??Ejection fraction is estimated to be 65%. ??There are no left ventricular segmental wall motion abnormalities. 2. The right ventricle is probably normal in size. Right ventricular global systolic function is normal. 3. A bovine bio-prosthetic aortic valve is present. ??The mean trans-valvular gradient across ??the aortic valve is 15 mmHg. ??The bio-prosthetic aortic valve appears well seated with normal function. There is no prosthetic aortic valve regurgitation present. ?? 4. The estimated pulmonary artery systolic pressure is 26 mmHg. 5. When compared with study dated 2013, no significant change was found. 6. See remainder of report for additional findings. Findings ? : Left Ventricle: ? The [...] ?The estimated pulmonary artery systolic pressure is 26 mmHg. ?The estimated right atrial pressure is 3 mmHg. Right Atrium: ? The right atrium appears normal. Aortic Valve: ? The peak instantaneous trans-valvular gradient across the aortic valve is 29 mmHg. ?The mean trans-valvular gradient across ??the aortic valve is 15 mmHg. ?The size of the prosthetic aortic valve is 25mm. ?The prosthetic aortic valve was implanted on 09/02/2013. ?A bovine bio-prosthetic aortic valve is present. ?The bio-prosthetic aortic valve appears well seated with normal function. ?There is no prosthetic aortic valve regurgitation present. Mitral Valve: ? The mitral valve appears normal in structure and function. ?There is mild (1+/4+) mitral regurgitation present. Tricuspid Valve: ? The tricuspid valve appears normal in structure and function. ?There is trace tricuspid regurgitation present. Pulmonic Valve: ? The pulmonic valve appears normal in structure and function. ?There is trace pulmonic regurgitation present. Pericardium: ? The pericardium appears normal and there is no evidence of a pericardial effusion. Aorta: ? The aortic root is normal in size. ?The ascending aorta is normal in size. Pulmonary Artery: ? The main pulmonary artery appears normal. Venous: ? The inferior vena cava appears normal in size. ?There is a greater than 50% respiratory change in the inferior vena cava dimension. Misc: ? See remainder of report for additional findings. ?Two-dimensional echo, spectral Doppler and color Doppler performed. Chambers 2D ?Value ?Units (Range) ? IVSd (2D) ? 1.2 ?cm ? LVPWd (2D) ?1.4 ?cm ? IVS:LVPW ratio (2D) 0.8 ?ratio ? LVIDd (2D) ?5.7 ?cm ? LVIDs (2D) ?3.6 ?cm ? LVIDd (2D) index ?2.3 ?cm/m2 ? LVIDs (2D) index ?1.5 ?cm/m2 ? LV FS (2D) ?37 ? % ? EF Teichholz (2D) ?? 66 ? % ? Ao root diameter (2D2.6 ?cm (2.1 - 3.6) ? Ascending Ao ?3 ?cm (2 - 3.5) ? Volumes/Mass ?Value ?Units (Range) ? LA Area 4 CH ?24.6 ? cm2 (<21) ? LA ESV BP (A/L) inde32.7 ? ml/m2 ? RA AREA 4CH ? 19.8 ? cm2 ? LA ESV SP 4CH (MOD) 73.6 ? ml ? LA ESV SP 2CH (MOD) 67 ? ml ? LV mass (2D) ?324.1 ?g ? LV mass (2D) index ??130.2 ?g/m2 ? Diastolic/Systolic Function ?Value ?Units (Range) ? MV E-wave Vmax ?1.1 ?m/sec ? MV deceleration ftzu426.9 ?msec ? MV A-wave Vmax ?0.9 ?m/sec ? MV E:A ratio ?1.2 ?ratio ? LV septal e' Vmax ?? 0.1 ?m/sec ? LV lateral e' Vmax ??0.1 ?m/sec ? LV average e' Vmax ??0.1 ?m/sec ? LV E:e' septal ratio13.5 ? ratio ? LV E:e' lateral rati12 ? ratio ? LV average E:e' rati13.5 ? ratio ? Aortic Valve ?Value ?Units (Range) ? AV Vmax ? 2.7 ?m/sec ? AV VTI ?66 ? cm ? AV peak gradient ?29 ? mmHg ? AV mean gradient ?15 ? mmHg ? LVOT Vmax ? 1.1 ?m/sec ? LVOT VTI ?27.9 ? cm ? LVOT peak gradient ??4.5 ?mmHg ? LVOT mean gradient ??2.4 ?mmHg ? DOI (VTI) ? 0.4 ?ratio ? DOI (Vmax) ?0.4 ?ratio ? Tricuspid Valve ?Value ?Units (Range) ? TR Vmax ? 2.4 ?m/sec ? TR peak gradient ?23.2 ? mmHg ? RAP ? 3 ?mmHg ? RVSP ?26 ? mmHg ? Measurement Trending Name ? 07/06/2016 ? LVIDd (2D) ? 5.72 LVIDs (2D) ? 3.61 Wall Motion: Segment Name ?Rest ? Base-Anteroseptal ?? Normal ? Base-Anterior ? Normal ? Base-Anterolateral ??Normal ? Base-Posterolateral Normal ? Base-Inferior ? Normal ? Base-Inferoseptal ?? Normal ? Mid-Anteroseptal ?Normal ? Mid-Anterior ?Normal ? Mid-Anterolateral ?? Normal ? Mid-Posterolateral ??Normal ? Mid-Inferior ?Normal ? Mid-Inferoseptal ?Normal ? [place]-Septal ? Normal ? [place]-Anterior ? Normal ? [place]-Lateral ?Normal ? [place]-Inferior ? Normal ? [place]-Tip ?Normal ? This report has been electronically signed by: Garth Watt M.D. ? 07/06/2016 08:54:20 Images reviewed and interpretation verified [facility] Cardiac Ultrasound Laboratory Procedure Note Garth Watt MD - 07/06/2016 Procedure: Transthoracic Echocardiogram Patient: KARLA NAYAKREY Joel (Age): 1945(70y) Med Rec#: [id number] Sex: M [place] Loc[place] [facility] [place] Ht / Wt: 178(cm)/137(kg) Pt. Loc: Echo Lab BSA: 2.49 Study Date: 07/06/2016 Pt. Type: Outpatient Tape: Referring: Irving Graham ([id number]) Referring: BROWN Reading: ShukriGarth ([id number]) Coal Crusher Operator: Parisa Peñaloza Diagnosis: *ICD-10-PCS Nonrheumatic aortic (valve) stenosis (I35.0) CPT Codes: *Echo Full (99234) *Spectral Doppler (96984) *Color Doppler (88180) BP: 186/64 SUMMARY: 1. Mild concentric left ventricular hypertrophy [...] no prosthetic aortic valve regurgitation present. 4. The estimated pulmonary artery systolic pressure is 26 mmHg. 5. When compared with study dated 2013, no significant change was found. 6. See remainder of report for additional findings. Findings : Left Ventricle: The left ventricular [...] trans-valvular gradient across the aortic valve is 29 mmHg. The [...] There is mild (1+/4+) mitral regurgitation present. Tricuspid Valve: The tricuspid valve appears normal in structure and function. There is trace tricuspid regurgitation present. Pulmonic Valve: The pulmonic valve appears normal in structure and function. There is trace pulmonic regurgitation present. Pericardium: The pericardium appears normal and there is no evidence of a pericardial effusion. Aorta: The aortic root is normal in size. The ascending aorta is normal in size. Pulmonary Artery: The main pulmonary artery appears normal. Venous: The inferior vena cava appears normal in size. There is a greater than 50% respiratory change in the inferior vena cava dimension. Misc: See remainder of report for additional findings. Two-dimensional echo, spectral Doppler and color Doppler performed. Chambers 2D Value Units (Range) IVSd (2D) 1.2 cm LVPWd (2D) 1.4 cm IVS:LVPW ratio (2D) 0.8 ratio LVIDd (2D) 5.7 cm LVIDs (2D) 3.6 cm LVIDd (2D) index 2.3 cm/m2 LVIDs (2D) index 1.5 cm/m2 LV FS (2D) 37 % EF Teichholz (2D) 66 % Ao root diameter (2D2.6 cm (2.1 - 3.6) Ascending Ao 3 cm (2 - 3.5) Volumes/Mass Value Units (Range) LA Area 4 CH 24.6 cm2 (<21) LA ESV BP (A/L) inde32.7 ml/m2 RA AREA 4CH 19.8 cm2 LA ESV SP 4CH (MOD) 73.6 ml LA ESV SP 2CH (MOD) 67 ml LV mass (2D) 324.1 g LV mass (2D) index 130.2 g/m2 Diastolic/Systolic Function Value Units (Range) MV E-wave Vmax 1.1 m/sec MV deceleration huam045.9 msec MV A-wave Vmax 0.9 m/sec MV E:A ratio 1.2 ratio LV septal e' Vmax 0.1 m/sec LV lateral e' Vmax 0.1 m/sec LV average e' Vmax 0.1 m/sec LV E:e' septal ratio13.5 ratio LV E:e' lateral rati12 ratio LV average E:e' rati13.5 ratio Aortic Valve Value Units (Range) AV Vmax 2.7 m/sec AV VTI 66 cm AV peak gradient 29 mmHg AV mean gradient 15 mmHg LVOT Vmax 1.1 m/sec LVOT VTI 27.9 cm LVOT peak gradient 4.5 mmHg LVOT mean gradient 2.4 mmHg DOI (VTI) 0.4 ratio DOI (Vmax) 0.4 ratio Tricuspid Valve Value Units (Range) TR Vmax 2.4 m/sec TR peak gradient 23.2 mmHg RAP 3 mmHg RVSP 26 mmHg Measurement Trending Name 07/06/2016 LVIDd (2D) 5.72 LVIDs (2D) 3.61 Wall Motion: Segment Name Rest Base-Anteroseptal Normal Base-Anterior Normal Base-Anterolateral Normal Base-Posterolateral Normal Base-Inferior Normal Base-Inferoseptal Normal Mid-Anteroseptal Normal Mid-Anterior Normal Mid-Anterolateral Normal Mid-Posterolateral Normal Mid-Inferior Normal Mid-Inferoseptal Normal [place]-Septal Normal [place]-Anterior Normal [place]-Lateral Normal [place]-Inferior Normal [place]-Tip Normal This report has been electronically signed by: Garth Watt M.D. 07/06/2016 08:54:20 Images reviewed and interpretation verified [facility] Cardiac Ultrasound Laboratory Irving Graham MD ECHO ORDERABLES documented in this encounter Visit Diagnoses Diagnosis Aortic valve stenosis, unspecified etiology Aortic valve stenosis, unspecified etiology documented in this encounter Care Teams Mosquito Sprayer Relationship Specialty Start Date End Date Carlos Hernandez DO [address] [place] [address] [address] [place] [address] PCP - General 08/16/10 02/25/23 documented as of this encounter
--- OUTSIDE RECORDS SUMMARY | 2024-09-23 14:22 | XMS_ITS | Encounter Summary ---
Author Organization [facility] [place] [address] Care Team Providers Care Badger Distiller Operator Name Role Phone Carlos Hernandez DO Primary Care Provider Encounter Details Date Type Department Care Team (Latest Contact Info) Description 05/05/2014 8:21 AM EDT - 05/05/2014 11:59 PM EDT Hospital Encounter Non-In[place] [address] S/P AVR (aortic valve replacement) Social History Tobacco Use Types Packs/Day Years [...] 150 mg by mouth 2 times daily. Budesonide-Formoter ol 80-4.5 mcg/actuation HFAA Inhale 2 puffs into the lungs 2 times daily. 05/06/2015 azithromycin (ZITHROMAX) 250 mg tablet 11/14/2013 07/16/2014 benzonatate (TESSALON) 100 mg capsule 11/07/2013 07/16/2014 predniSONE (DELTASONE) 20 mg tablet 11/10/2013 07/16/2014 losartan (COZAAR) 25 mg tabletIndications:H ypertension Take 1 tablet by mouth daily. 30 tablet 12 05/05/2014 05/06/2015 gabapentin (NEURONTIN) 100 mg capsule TAKE THREE CAPSULES BY MOUTH AT BEDTIME 90 capsule 0 03/02/2014 07/16/2014 ustekinumab (STELARA) 90 mg/mL SyrgIndications:Pso riasis Inject 1 mL subcutaneously Q 3 Months. 1 mL 3 12/29/2013 01/28/2015 metoprolol tartrate (LOPRESSOR) 25 mg tablet Take 25 mg by mouth daily. 05/06/2015 hydrochlorothiazide (HYDRODIURIL) 25 mg tablet Take 25 mg by mouth daily. 05/11/2017 chlorhexidine (PERIDEX) 0.12 % solution as needed. 08/06/2013 03/06/2019 senna-docusate (PERICOLACE) 8.6-50 mg per tablet Take 2 tablets by mouth daily. 60 tablet 09/06/2013 07/16/2014 Magnesium Chloride 64 mg TbEC Take 64 [...] Dermatology at [facility] [address] [address] Joyce Snyder MD [facility] [place] [place] [address] documented as of this encounter Procedures Procedure Name Priority Date/Time Associated Diagnosis Comments ECHOCARDIOGRAM TRANSTHORACIC Routine 05/05/2014 9:19 AM EDT S/P AVR (aortic valve replacement) documented in this encounter Results * Echocardiogram Transthoracic(Leb) (05/05/2014 9:19 AM EDT) EF 65 HEARTLocu SYSTEM Anatomical Region Laterality Modality Other 05/05/2014 Narrative 05/05/2014 10:04 AM EDT Procedure: ? Transthoracic Echocardiogram Patient: ? KARLA VILLATORO W ?(Age): 1945(68) Med Rec#: ?[id number] ? Sex: ?M ? Site Loc: ?[facility] [place] ? Ht / Wt: ??(cm)/(kg) ? Pt. Loc: ? Echo Lab ? BSA: ? Study Date: ?05/05/2014 ? Pt. Type: Outpatient Tape: ? 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 Mild concentric left ventricular hypertrophy is observed. ??There is normal global left ventricular systolic function. ??Ejection fraction is estimated to be 65%. ??There are no left ventricular segmental wall motion abnormalities. 2. The left atrium is mildly dilated. 3. The bio-prosthetic aortic valve appears well seated with normal function. ??The prosthetic aortic valve was implanted on 09/02/2013. ??The size of the prosthetic aortic valve is 25mm. ??The mean trans-valvular gradient across ??the aortic valve is 11 mmHg. ??There is no prosthetic aortic valve regurgitation present. 4. See remainder of report for additional findings. FINDINGS: Left Ventricle ?The left ventricular chamber size is normal. ?Mild concentric left ventricular hypertrophy is observed. ?Basal septal hypertrophy is observed. ?There is no evidence of LVOT obstruction. ?There is normal global left ventricular systolic function. ??Ejection fraction is estimated to be 65%. ?There are no left ventricular segmental wall motion abnormalities. ?Left sided filling pressure could not be assessed by Doppler. ?A false chord is observed in the left ventricle. Left Atrium ?The left atrium is mildly dilated. Right Ventricle ?The right ventricle is normal in size. ?Right ventricular global systolic function is normal. ?Pulmonary artery hypertension could not be assessed due to inadequate tricuspid regurgitation jet. Right Atrium ?The right atrium is mildly dilated. Aortic Valve ?The mean trans-valvular gradient across ??the aortic valve is 11 mmHg. ?The size of the prosthetic aortic valve is 25mm. ?The prosthetic aortic valve was implanted on 09/02/2013. ?A bovine bio-prosthetic aortic valve is present. ?The bio-prosthetic aortic valve appears well seated with normal function. ?There is no prosthetic aortic valve regurgitation present. Mitral Valve ?The mitral valve appears normal in structure and function. ?There is trace mitral regurgitation present. Tricuspid Valve ?The tricuspid valve appears normal in structure and function. ?There is trace tricuspid regurgitation present. Pulmonic Valve ?The pulmonic valve appears normal in structure and function. ?There is trace pulmonic regurgitation present. Pericardium ?The pericardium appears normal and there is no evidence of a pericardial effusion. Aorta ?The aortic root is normal in size. ?The ascending aorta is normal in size. Pulmonary Artery ?The main pulmonary artery appears normal. Venous ?The inferior vena cava appears normal in size. ?There is a greater than 50% respiratory change in the inferior vena cava dimension. Misc ?Two-dimensional echo, spectral Doppler and color Doppler performed. Wall Motion: Segment Name ?Rest ? Base-Anteroseptal ?? Normal ? Base-Anterior ? Normal ? Base-Anterolateral ??Normal ? Base-Posterolateral Normal ? Base-Inferior ? Normal ? Base-Inferoseptal ?? Normal ? Mid-Anteroseptal ?Normal ? Mid-Anterior ?Normal ? Mid-Anterolateral ?? Normal ? Mid-Posterolateral ??Normal ? Mid-Inferior ?Normal ? Mid-Inferoseptal ?Normal ? [place]-Septal ? Normal ? [place]-Anterior ? Normal ? [place]-Lateral ?Normal ? [place]-Inferior ? Normal ? [place]-Tip ?Normal ? Chambers ?Value ?Units (Range) ? LV EF Est ? 65 ? % (55 to 80) ? IVSd 2D ? 1.6 ?cm ? LVIDd 2D ?4.3 ?cm ? PWd 2D ?1.2 ?cm ? LVIDs 2D ?2.5 ?cm ? LVFS 2D ? 42 ? % ? LA area ? 24 ? cm2 (<21) ? RA area ? 20 ? cm2 (<18) ? Asc Ao ?2.8 ?cm (2 to 3.5) ? Aortic Valve ?Value ?Units (Range) ? AV grad P ? 22 ? mmHg ? AV grad M ? 11 ? mmHg ? DOI ? 0.56 ? AV pk bee ? 2.3 ?m/sec (1 to 1.7) ? LVOT pk bee ? 1.32 ? m/sec (0.7 to 1.1) ?? Mitral Valve ?Value ?Units (Range) ? E peak ?0.87 ? m/sec ? E/A ratio ? 0.9 ?ratio ? MVDT ?198 ?msec ? E1 ?0.07 ? m/sec ? E/E1 ?12.4 ? ratio ? This report has been electronically signed by: Damian Wynn MD ? 05/05/2014 10:03:36 Images reviewed and interpretation verified [facility] Cardiac Ultrasound Laboratory Procedure Note Damian Wynn MD - 05/05/2014 Procedure: Transthoracic Echocardiogram Patient: KARLA Maldonado (Age): 1945(68) Med Rec#: [id number] Sex: M Site Loc: [facility] [place] Ht / Wt: (cm)/(kg) Pt. Loc: Echo Lab BSA: Study Date: 05/05/2014 Pt. 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 Mild concentric left ventricular hypertrophy [...] See remainder of report for additional findings. FINDINGS: Left Ventricle The left ventricular chamber size [...] chord is observed in the left ventricle. Left Atrium The left atrium is mildly dilated. Right Ventricle The right ventricle is normal in size. Right ventricular global systolic function is normal. Pulmonary artery hypertension could not be assessed due to inadequate tricuspid regurgitation jet. Right Atrium The right atrium is mildly dilated. Aortic Valve The mean trans-valvular gradient across the aortic valve is 11 mmHg. The size of the prosthetic aortic valve is 25mm. The prosthetic aortic valve was implanted on 09/02/2013. A bovine bio-prosthetic aortic valve is present. The bio-prosthetic aortic valve appears well seated with normal function. There is no prosthetic aortic valve regurgitation present. Mitral Valve The mitral valve appears normal in structure and function. There is trace mitral regurgitation present. Tricuspid Valve The tricuspid valve appears normal in structure and function. There is trace tricuspid regurgitation present. Pulmonic Valve The pulmonic valve appears normal in structure and function. There is trace pulmonic regurgitation present. Pericardium The pericardium appears normal and there is no evidence of a pericardial effusion. Aorta The aortic root is normal in size. The ascending aorta is normal in size. Pulmonary Artery The main pulmonary artery appears normal. Venous The inferior vena cava appears normal in size. There is a greater than 50% respiratory change in the inferior vena cava dimension. [facility], spectral Doppler and color Doppler performed. Wall Motion: Segment Name Rest Base-Anteroseptal Normal Base-Anterior Normal Base-Anterolateral Normal Base-Posterolateral Normal Base-Inferior Normal Base-Inferoseptal Normal Mid-Anteroseptal Normal Mid-Anterior Normal Mid-Anterolateral Normal Mid-Posterolateral Normal Mid-Inferior Normal Mid-Inferoseptal Normal [place]-Septal Normal [place]-Anterior Normal [place]-Lateral Normal [place]-Inferior Normal [place]-Tip Normal Chambers Value Units (Range) LV EF Est 65 % (55 to 80) IVSd 2D 1.6 cm LVIDd 2D 4.3 cm PWd 2D 1.2 cm LVIDs 2D 2.5 cm LVFS 2D 42 % LA area 24 cm2 (<21) RA area 20 cm2 (<18) Asc Ao 2.8 cm (2 to 3.5) Aortic Valve Value Units (Range) AV grad P 22 mmHg AV grad M 11 mmHg DOI 0.56 AV pk bee 2.3 m/sec (1 to 1.7) LVOT pk bee 1.32 m/sec (0.7 to 1.1) Mitral Valve Value Units (Range) E peak 0.87 m/sec E/A ratio 0.9 ratio MVDT 198 msec E1 0.07 m/sec E/E1 12.4 ratio This report has been electronically signed by: Damian Wynn MD 05/05/2014 10:03:36 Images reviewed and interpretation verified [facility] Cardiac Ultrasound Laboratory Williams Miranda MD ECHO ORDERABLES documented in this encounter Visit Diagnoses Diagnosis S/P AVR (aortic valve replacement) Heart valve replaced by other means documented in this encounter Care Teams Badger Distiller Operator Relationship Specialty Start Date End Date Carlos Hernandez DO [address] [place] [address] PCP - General 08/16/10 02/25/23 documented as of this encounter
--- OUTSIDE RECORDS SUMMARY | 2024-09-23 14:22 | XMS_ITS | Encounter Summary ---
Author Organization [facility] Address [facility] [place] [address] Care Team Providers Care Beach Patrol Lieutenant Name Role Phone Carlos Hernandez DO Primary Care Provider Reason for Visit * Reason Comments Medication Refill Encounter Details Date Type Department Care Team (Late st Contact Info) Description 03/02/2014 [place] [address] Lan Singh MD [facility] [place] [place] [address] Social History Tobacco Use Types Packs/Day Years [...] Visit Dermatology at [facility] [address] [place] [address] Joyce Snyder MD [facility] [place] [place] [address] documented as of this encounter Visit Diagnoses Not on filedocumented in this encounter Care Teams [place] Patrol Lieutenant Relationship Specialty Start Date End Date Carlos Hernandez DO [address] [place] [address] PCP - General 08/16/10 02/25/23 documented as of this encounter
--- OUTSIDE RECORDS SUMMARY | 2024-09-23 14:22 | XMS_ITS | Encounter Summary ---
Author Organization [facility] [place] [address] Care Team Providers Care Director Of Recruiting Name Role Phone Carlos Hernandez DO Primary Care Provider Reason for Visit * Reason Comments [facility]care Of [facility] SP L ROBERT DOS 8, R ROBERT DOS 12/10/01 Encounter Details Date Type Department Care Team (Late st Contact Info) Description 05/06/2015 1:30 PM EDT Office [place] [address] Dave Barragan MD H/O total hip arthroplasty, bilateral Discharge Disposition: Home Social History Tobacco [...] Sign Reading Time Taken Comments Blood Pressure 139/57 05/06/2015 1:31 PM EDT Pulse 62 05/06/2015 1:31 PM EDT Temperature - - Respiratory Rate - - Oxygen Saturation - - Inhaled Oxygen Concentration - - Weight 132.9 kg (293 lb) 05/06/2015 1:31 PM EDT STATED Height 177.8 cm (5' 10) 05/06/2015 1:31 PM EDT STATED Body Mass Index 42.04 05/06/2015 1:31 PM EDT documented in this encounter Progress Notes * Dave Barragan Marian - 05/06/2015 1:49 PM EDT Mr. Rosenthal is a 13 and 7 years status post right and left total hip replacement. These are ceramic-on high-density polyethylene bearing surfaces uncemented implants. He is doing very well. He has no hip complaints whatsoever. He is retired now. He is in good spirits. His weight has been pretty stable. He still is about 300 pounds with a BMI of 42. He is currently getting biologics for his psoriatic arthritis. On his physical exam, he could rise from a chair without the use of his arms. He has a very nice gait, slight abductor weakness suggested on his right side, but is very slight. When seated, I can bring his hip through a satisfactory range of motion with neither pain or apprehension. His x-rays continue to show very satisfactory position of the implants. Nothing to suggest stress shielding, implant failure, loosening or malposition. ASSESSMENT: Very satisfactory course. The importance of good foot care and dental prophylaxis were once again emphasized and under the circumstances, we will see him in two years' time for followup with x-rays or earlier p.r.n. CC: Carlos Hernandez DO documented in this encounter Plan of Treatment Upcoming Encounters Date Type Department Care Team (Late st Contact Info) Description 12/18/2024 2:00 PM EDT Office Visit Dermatology at [facility] [address] [facility] [place] [address] Joyce Snyder MD [facility] [place] [address] documented as of this encounter Visit Diagnoses Diagnosis H/O total hip arthroplasty, bilateral documented in this encounter Care Teams Director Of Recruiting Relationship Specialty Start Date End Date Carlos Hernandez DO [address] [place] [address] [address] [facility] 1 [place] [address] PCP - General 08/16/10 02/25/23 documented as of this encounter
--- OUTSIDE RECORDS SUMMARY | 2024-09-23 14:22 | XMS_ITS | Encounter Summary ---
Author Organization Formerly [facility], 1928[facility] [place] [address] Care Team Providers Care Decator Operator Name Role Phone Carlos Hernandez DO Primary Care Provider Reason for Visit * Reason Comments [facility] Of [facility] Bilateral ROBERT R: 11/22 05/26, L: 07/14/08 Encounter Details Date Type Department Care Team (Late st Contact Info) Description 04/20/2017 1:00 PM EDT Office [place] [address] Quentin Sharma, PA S/P prosthetic total arthroplasty of the hip, bilateral Social History Tobacco Use Types Packs/Day Years [...] Sign Reading Time Taken Comments Blood Pressure 159/59 04/20/2017 12:22 PM EDT Pulse 59 04/20/2017 12:22 PM EDT Temperature - - Respiratory Rate - - Oxygen Saturation 96% 04/20/2017 12:22 PM EDT Inhaled Oxygen Concentration - - Weight 143.8 kg (317 lb) 04/20/2017 12:22 PM EDT verbal Height 177.8 cm (5' 10) 04/20/2017 12:22 PM EDT verbal Body Mass Index 45.48 04/20/2017 12:22 PM EDT documented in this encounter Progress Notes * Quentin Sharma PA - 04/20/2017 1:00 PM EDT Arthroplasty/Orthopaedic History: 1. Right ROBERT 12-10-2001 Dr Barragan 2. Left ROBERT 07-14-2008 Dr Barragan HPI: Raghu Rosenthal is a very pleasant 71 y.o. year-old male and is now 15 and 9 years post bilateral total hip replacement The patient has been doing well. Pain is controlled without any medications.. No fevers, chills, nausea, vomiting, or symptoms of infection. Raghu has been ambulating with no assistive device. He is not taking narcotic pain medicine. ROS: Denies: fever, chills, night sweats, nausea, or vomiting BP 159/59 Pulse 59 Ht 177.8 cm (5' 10) Comment: verbal Wt (!) 143.8 kg (317 lb) Comment: verbal SpO2 96% BMI 45.48 kg/m2 Physical Exam: Well-appearing male in no acute distress. Alert and Oriented x 3 and answers all questions appropriately. I have made the following determinations: Post Op Right Hip Exam: Leg length: Longer leg: equal Limb Length discrepancy: 0cm Motion: Flexion contracture: 0 Total degrees of Flexion:90 Total degrees of Abduction:20 Total degrees of Ext Rotation: 25 Total degrees of Internal Rotation: 0 Gait Abnormality: Normal Pulses Palpable: Right PT: Yes Right DP:Yes Motor/Sensory: Right Distal Motor: Normal Distal Sensory: Normal Hip Abductors 5 Trendelenburg test: negative Post Op Left Hip Exam: Leg Length: Longer leg: equal Limb Length discrepancy: 0cm Motion: Flexion contracture: 0 Total degrees of Flexion: 90 Total degrees of Abduction: 20 Total degrees of Ext Rotation: 25 Total degrees of Internal Rotation: 0 Gait Abnormality: Normal Pulses Palpable: Left PT: Yes Left DP: Yes Motor/Sensory: Left Distal Motor: Normal Distal Sensory: Normal Hip Abductors: 5 Trendelenburg test: negative X-RAYS: Multiple radiographic views were obtained at my request and reviewed with the patient. X-rays show a well-placed prosthesis with no evidence of fracture, subsidence, loosening, or periprosthetic complication. Questionnaire Responses:[facility] Surgical Postop Visit 04/20/2017 PROMIS-10 General Health Good PROMIS-10 Quality of Life Very Good PROMIS-10 Physical Health Good PROMIS-10 Mental Health Very Good PROMIS-10 Social Activity Very Good PROMIS-10 Everyday Activities Moderately PROMIS-10 Pain 7 PROMIS-10 Fatigue Moderate PROMIS-10 Social Roles Good PROMIS-10 Anxious or Depressed Sometimes PROMIS PHYSICAL HEALTH SCORE 37.4 PROMIS MENTAL HEALTH SCORE 50.8 HOOS JR Scores 64.66 Problems with surgical incision/wound after surgery No Gone to ER since knee surgery Yes Where was ER located? [facility] Date of ER visit 09/08/2013 Reason for ER visit complication following heart surgey Admitted to hospital since recent ortho surgery Yes Hospital [facility] Date of admission 09/08/2013 Discharge date 09/14/2013 Reason you went to hospital heart Additional surgery on same body part No ROBERT Grade 9 Pain in other HIP None Back pain at this moment Moderate Satisfaction with Treatment Satisfied Choose Same Treatment Again Definitely yes Orthopeadics [facility] Response 04/20/2017 HOOS JR Scores 64.66 Spine [facility] Response 04/20/2017 HOOS JR Scores 64.66 ASSESSMENT/PLAN: Mr. Rosenthal is a 71 y.o. year old male status post bilateral total hip replacement. We will see him back in 5 years for repeat examination. X-rays will be needed at that time. Patient may return to normal activities as his pain and function allow. We discussed the appropriate precautions surrounding dental prophylaxis; according to the AAOS Appropriate Use Criteria we do recommend antibiotic use prior to dental procedures for Raghu. Recommended antibiotic: Amoxicillin (50mg/kg, maximum 2 gm) 1 hour prior to dental work; dose: . If Raghu has any changes in health status we recommend he contact our office prior to dental procedures for updated recommendations All questions were answered. Signed: PATRICK MCCLELLAND 04/24/2017 documented in this encounter Plan of Treatment Upcoming Encounters Date Type Department Care Team (Late st Contact Info) Description 12/18/2024 2:00 PM EDT Office Visit Dermatology at [address] [place] [address] Joyce Snyder MD [facility] [address] documented as of this encounter Goals Goal [...] of this encounter Visit Diagnoses Diagnosis S/P prosthetic total arthroplasty of the hip, bilateral documented in this encounter Care Teams Decator Operator Relationship Specialty Start Date End Date Carlos Hernandez DO [address] [place] [address] [facility] 1 [place] [address] PCP - General 08/16/10 02/25/23 documented as of this encounter
--- OUTSIDE RECORDS SUMMARY | 2024-09-23 14:22 | XMS_ITS | Encounter Summary ---
Author Organization [facility] [place] [address] Care Team Providers Care Tile Burner Name Role Phone Carlos Hernandez DO Primary Care Provider Encounter Details Date Type Department Care Team (Latest Contact Info) Description 07/16/2014 10:10 AM EDT - 07/16/2014 11:59 PM EDT [place] [address] Mathew Snell MD S/P AVR (aortic valve replacement) and aortoplasty Discharge Disposition: Home Social History Tobacco Use [...] 150 mg by mouth 2 times daily. gabapentin (NEURONTIN) 300 mg Capsule Take 300 mg by mouth daily. 05/06/2015 Budesonide-Formotero l 80-4.5 mcg/actuation HFAA Inhale 2 puffs into the lungs 2 times daily. 05/06/2015 losartan (COZAAR) 25 mg tabletIndications:Hy pertension Take 1 tablet by mouth daily. 30 tablet 12 05/05/2014 05/06/2015 ustekinumab (STELARA) 90 mg/mL SyrgIndications:Psor iasis Inject [...] Dermatology at [facility] [address] [place] [address] Joyce Snyder MD [facility] [place] [address] documented as of this encounter Visit Diagnoses Diagnosis S/P AVR (aortic valve replacement) and aortoplasty Heart valve replaced by other means documented in this encounter Care Teams Tile Burner Relationship Specialty Start Date End Date Carlos Hernandez DO [address] [place] [address] [address] [place] [address] PCP - General 08/16/10 02/25/23 documented as of this encounter
--- OUTSIDE RECORDS SUMMARY | 2024-09-23 14:22 | XMS_ITS | Encounter Summary ---
Author Organization [facility] [place] [address] Care Team Providers Care Client Delivery Manager Name Role Phone Carlos Hernandez DO Primary Care Provider Reason for Referral * Diagnostic Test (Routine) - Closed Specialty Diagnoses / Procedures Referred By Guanaco marie Referred To Contact Cardiology Diagnoses Aortic valve stenosis, unspecified etiology Procedures Echocardiogram Transthoracic(Leb) Raghu Graham MD [facility] [place] [address] [facility] [place] [address] Referral ID Status Reason Start Date Expiration Date V isits Requested Visits Authorized [id number] Closed Specialty Service Requested 06/28/2016 06/28/2017 1 1 Reason for Visit * Diagnostic Test (Routine) - Closed Specialty Diagnoses / Procedures Referred By Guanaco marie Referred To Contact Cardiology Diagnoses Aortic valve stenosis, unspecified etiology Procedures Echocardiogram Transthoracic(Leb) Raghu Graham [place] [facility] [place] [address] [facility] [place] [address] Referral ID Status Reason Start Date Expiration Date V isits Requested Visits Authorized [id number] Closed Specialty Service Requested 06/28/2016 06/28/2017 1 1 Encounter Details Date Type Department Care Team (Latest Contact Info) Description 07/06/2016 7:47 AM EDT - 07/06/2016 11:59 PM EDT Hospital Encounter Non-Invasive [place] [address] Aortic valve stenosis, unspecified etiology Discharge Disposition: Home Social History Tobacco Use [...] Sig Dispensed Refills Start Date End Date escitalopram (LEXAPRO) 20 mg Tablet Take 20 [...] 150 mg by mouth 2 times daily. rosuvastatin (CRESTOR) 5 mg TabletIndications:Hype rlipidemia, unspecified hyperlipidemia type Take 1 tablet by mouth daily. 30 tablet 11 07/06/2016 06/18/2017 amLODIPine (NORVASC) 5 mg TabletIndications:Esse ntial hypertension Take 1 tablet by mouth daily. Take each evening in addition to taking the 10 mg each morning 30 tablet 11 07/06/2016 06/18/2017 ustekinumab (STELARA) 90 mg/mL SyringeIndications:Pso riasis Inject 1 mL subcutaneously Q 3 Months. 1 mL 3 02/11/2016 10/13/2016 budesonide-formoterol (SYMBICORT) 160-4.5 mcg/actuation HFA Aerosol Inhaler Inhale 2 puffs into the lungs daily. 05/22/2019 mometasone (NASONEX) 50 mcg/actuation [place], Non-AerosolIndications :as needed 1 spray by Each Nare route as needed. Indications: as needed 09/27/2020 amLODIPine (NORVASC) 5 mg Tablet Take 10 [...] 2:00 PM EDT Office Visit Dermatology at [address] [address] Joyce Snyder MD [facility] [place] [address] documented as of this encounter Procedures Procedure Name Priority Date/Time Associated Diagnosis Comments ECHO COMPLETE Routine 07/06/2016 8:44 AM EDT Aortic valve stenosis, unspecified etiology documented in this encounter Results * ECHO COMPLETE (07/06/2016 8:44 AM EDT) EF 65 HEARTLAB SYSTEM Anatomical Region Laterality Modality Other 07/06/2016 Narrative 07/06/2016 8:54 AM EDT Procedure: ?Transthoracic Echocardiogram Patient: ?KARLA Maldonado ? (Age): 1945(70y) Med Rec#: ? [id number] ?Sex: ?M ? Site Loc: ? [facility] ?Ht / Wt: ??178(cm)/137(kg) Pt. Loc: ?Echo Lab ?BSA: ?2.49 Study Date: ?? 07/06/2016 ?Pt. Type: Outpatient Tape: ? Referring: Raghu Graham ([id number]) Referring: BROWN Reading: Garth Watt ([id number]) Office Machines Sales Representative: Parisa Peñaloza Diagnosis: *ICD-10-PCS Nonrheumatic aortic (valve) stenosis (I35.0) CPT Codes: *Echo Full (08728) *Spectral Doppler (75673) *Color Doppler (89280) BP: ? 186/64 SUMMARY: 1. Mild concentric [...] E-wave Vmax ?1.1 ?m/sec ? MV deceleration fitl399.9 ?msec ? MV A-wave Vmax ?0.9 ?m/sec [...] ? Mid-Inferior ?Normal ? Mid-Inferoseptal ?Normal ? [place]-Septal ? Normal ? [place]-Anterior ? Normal ? [place]-Lateral ?Normal ? [place]-Inferior ? Normal ? [place]-Tip ?Normal ? This report has been electronically signed by: Garth Watt M.D. ? 07/06/2016 08:54:20 Images reviewed and interpretation verified [facility]ound [facility] Procedure Note Garth Watt MD - 07/06/2016 Procedure: Transthoracic Echocardiogram Patient: KARLA Maldonado (Age): 1945(70y) Med Rec#: [id number] Sex: M Site Loc: [facility] Ht / Wt: 178(cm)/137(kg) Pt. Loc: Echo Lab BSA: 2.49 Study Date: 07/06/2016 Pt. Type: Outpatient Tape: Referring: Raghu Graham ([id number]) Referring: BROWN Reading: Garth Watt ([id number]) Office Machines Sales Representative: Parisa Peñaloza Diagnosis: *ICD-10-PCS Nonrheumatic aortic (valve) stenosis (I35.0) CPT Codes: *Echo Full (67309) *Spectral Doppler (81395) *Color Doppler (05601) BP: 186/64 SUMMARY: 1. Mild concentric left [...] MV E-wave Vmax 1.1 m/sec MV deceleration scbq220.9 msec MV A-wave Vmax 0.9 m/sec MV [...] Normal Mid-Posterolateral Normal Mid-Inferior Normal Mid-Inferoseptal Normal [place]-Septal Normal [place]-Anterior Normal [place]-Lateral Normal [place]-Inferior Normal [place]-Tip Normal This report has been electronically signed by: Rakel Watt M.D. 07/06/2016 08:54:20 Images reviewed and interpretation verified [facility] Raghu Graham MD ECHO ORDERABLES documented in this encounter Visit Diagnoses Diagnosis Aortic valve stenosis, unspecified etiology documented in this encounter Care Teams Client Delivery Manager Relationship Specialty Start Date End Date Carlos Hernandez DO [address] [place] [address] [address] [facility] 1 [place] [address] PCP - General 08/16/10 02/25/23 documented as of this encounter
--- OUTSIDE RECORDS SUMMARY | 2024-09-23 14:22 | XMS_ITS | Encounter Summary ---
Author Organization [facility] Address [facility] [place] [address] Care Team Providers Care Envelope Press Operator Name Role Phone Carlos Hernandez DO Primary Care Provider [phone] Encounter Details Date Type Department Care Team (Late st Contact Info) Description 07/16/2014 Orders [place] [address] Lan Singh MD [facility] [place] [address] HTN (hypertension) (Primary Dx) Social History Tobacco Use Types [...] PM EDT Office Visit Dermatology at [facility] [address] [place] [address] Joyce Snyder MD [facility] [place] [address] documented as of this encounter Results * Urinalysis without microscopic (05/06/2015 12:58 PM EDT) Glucose, Urine Dipstick Negative Negative mg/dL CERNER MILLENNIUM Protein, Urine Dipstick Negative Negative mg/dL CERNER MILLENNIUM Bilirubin, Urine Dipstick Negative Negative mg/dL CERNER MILLENNIUM Comment: Clinical correlation required for positive Urine Bilirubin results as false positive may occur with some drugs and drug related products. If a false positive is suspected a serum total bilirubin should be considered if clinically indicated. Urobilinogen, Urine Dipstick Normal Normal mg/dL CERNER MILLENNIUM pH, Urn (dipstick) 6.0 5.0 - 8.0 CERNER MILLENNIUM Blood, Urine Dipstick Negative Negative mg/dL CERNER MILLENNIUM Ketone, Urine Dipstick Negative Negative mg/dL CERNER MILLENNIUM Nitrite, Urine Dipstick Negative Negative CERNER MILLENNIUM Leukocytes, Urine Dipstick Negative Negative mcL CERNER MILLENNIUM Appearance, Urine Dipstick Clear Clear CERNER MILLENNIUM Specific [place] Urine Automated 1.014 1.002 - 1.030 CERNER MILLENNIUM Color, Urine Dipstick Yellow Yellow CERNER MILLENNIUM Urine specimen (specimen) 05/06/2015 12:58 PM EDT 05/06/2015 1:32 PM EDT Narrative Resulting Agency Comment Spec In Lab Lan Singh MD URINE ORDERABLES CERNER ELIEZERIUM documented in this encounter Visit Diagnoses Diagnosis HTN (hypertension)- Primary Unspecified essential hypertension documented in this encounter Care Teams Envelope Press Operator Relationship Specialty Start Date End Date Carlos Hernandez DO [address] [place] [address] PCP - General 08/16/10 02/25/23 documented as of this encounter
--- OUTSIDE RECORDS SUMMARY | 2024-09-23 14:22 | XMS_ITS | Encounter Summary ---
Author Organization [facility] Address [facility] Krystle [facility] [place] [address] Care Team Providers Care Shredding Machine Operator Name Role Phone Carlos Hernandez DO Primary Care Provider [phone] Reason for Visit * Reason Comments Arthritis Encounter Details Date Type Department Care Team (Late st Contact Info) Description 02/10/2016 10:00 AM EDT Office [place] [address] Lan Singh MD [facility] [place] [address] Psoriasis Social History Tobacco Use Types Packs/Day [...] Sign Reading Time Taken Comments Blood Pressure 179/62 02/10/2016 9:54 AM EDT Pulse 53 02/10/2016 9:54 AM EDT Temperature 36.4 ??C (97.6 ??F) 02/10/2016 9:54 AM ED T Respiratory Rate - - Oxygen Saturation 98% 02/10/2016 9:54 AM EDT Inhaled Oxygen Concentration - - Weight 137.4 kg (303 lb) 02/10/2016 9:54 AM EDT Height 177.8 cm (5' 10) 02/10/2016 9:54 AM EDT Body Mass Index 43.48 02/10/2016 9:54 AM EDT documented in this encounter Progress Notes * Lan Singh MD - 02/10/2016 10:22 AM EDT FOLLOWUP APPOINTMENT: The patient is a 70-year-old male with psoriasis; psoriatic arthritis; sleep apnea; osteoarthritis; dyshidrotic eczema; AVN of both hips, status post total hip replacement; fibromyalgia; status post arachnoid hemorrhage in 2006 that was treated, that was possibly precipitated by indomethacin, but it is not clear. He is currently on Stelara for psoriasis and psoriatic arthritis, and he has continued to have left greater than right wrist pain, and for that I put him on ARAVA 10 mg. After a week he got a rash and had to stop it. He is otherwise unchanged. He had a good time in [place] and did a lot of partying with friends, and going out to restaurants. As a consequence, his weight ballooned back up. On exam, his blood pressure is 179/62, his pulse is 53, his temp is 36.4, his weight is 303. His HEENT exam is unremarkable. His chest is clear. Heart exam is unremarkable. His abdomen is obese. His extremities, he has synovitis at his MCPs bilaterally, left greater than right. His right hand has 30 kg machine deburrer strength, his left is 14. He has some psoriatic patches, but they are very minimal. With regard to his psoriasis and psoriatic arthritis, his psoriasis is under good control on the Stelara, but his psoriatic arthritis is under poor control. Today I started him on sulfasalazine 500 mg b.i.d., in addition to the Stelara, after we discussed the options. We spent most of the time discussing his weight. He has got multiple risk factors for cardiovascular disease, but his weight is really quite dramatic. We talked about surgical approaches to weight control. We also talked about diet. He is going to try [facility] PF, but I asked him to research the [employer] Program. He will follow up in 3 months. Today I got labs and refilled his Stelara and made a new prescription for sulfasalazine. documented in this encounter Miscellaneous Notes * Addendum Note - Karen Egan - 02/10/2016 12:14 PM EDTAddended by: KAREN EGAN on: 02/10/2016 12:14 PM Modules accepted: Orders documented in this encounter Plan of Treatment Upcoming Encounters Date Type Department Care Team (Late st Contact Info) Description 12/18/2024 2:00 PM EDT Office Visit Dermatology at [address] [place] [address] Joyce Snyder MD [facility] [place] [address] documented as of this encounter Procedures Procedure Name Priority Date/Time Associated Diagnosis Comments HEMOGRAM Routine 02/10/2016 10:41 AM EDT Psoriasis DIFFERENTIAL, AUTOMATED Routine 02/10/2016 10:41 AM EDT Psoriasis SEDIMENTATION RATE Routine 02/10/2016 10 :41 AM EDT Psoriasis CBC (WITH DIFF) Routine 02/10/2016 10:41 AM EDT Psoriasis CRP, CARDIAC RISK (HS CRP) Routine 02/10/2016 10:41 AM EDT Psoriasis COMPREHENSIVE METABOLIC PANEL Routine 02/10/2016 10:41 AM EDT Psoriasis documented in this encounter Results * Differential, Automated (02/10/2016 10:41 AM EDT) Neutrophil % 53.5 % [facility] Neutrophil Absolute 2.44 1.50 - 6.30 x10(3)/[facility] Lymph % 30.7 % [facility] Lymphocytes Abs 1.4 1.0 - 3.6 x10(3)/[facility] Monocyte % 7.9 % [facility] Monocyte Abs 0.4 0.2 - 1.0 x10(3)/[facility] Eos % 7.0 % [facility] Eosinophils Abs 0.3 0.0 - 0.5 x10(3)/[facility] Basophil % 0.7 % [facility] Baso Absolute 0.0 0.0 - 0.2 x10(3)/[facility] Immature Gran % 0.20 % [facility] Comment: Immature granulocytes(IG's)percentage and absolute count will include metamyelocytes, myelocytes, and promyelocytes. Blood smears from CBCs yielding IG's will be scanned manually for concordance. If this scan disagrees with the automated IG or if promyelocytes are noted, a manual differential will be performed. Immature Gran Absolute 0.01 0.00 - 0.05 x10(3)/[facility] Blood specimen (specimen) 02/10/2016 10:41 AM EDT 02/10/2016 11:15 AM EDT Narrative Resulting Agency Comment Spec In Lab Lan Singh MD HEMATOLOGY ORDERABLE S [facility] [place] [address] * Hemogram (02/10/2016 10:41 AM EDT) White Blood Cell 4.6 4.0 - 10.0 x10(3)/[facility] Red Blood Cell 4.77 4.63 - 6.08 x10(6)/[facility] Hemoglobin 13.8 13.7 - 17.5 gm/dL [facility] Hematocrit 41.6 40.0 - 51.0 % [facility] Mean Cell Volume 87.2 79.0 - 92.0 fL [facility] Mean Cell Hemoglobin 28.9 25.6 - 32.2 pg [facility] Mean Cell Hemoglobin Concentration 33.2 32.0 - 36.5 gm/dL [facility] Platelet 156 145 - 370 x10(3)/mcL [facility] RDW Standard Deviation 44.2 35.0 - 46.0 fL [facility] RDW coefficient of variation 14.0 10.9 - 14.4 % [facility] Mean Platelet Volume 9.7 9.0 - 12.0 fL [facility] Blood specimen (specimen) 02/10/2016 10:41 AM EDT 02/10/2016 11:15 AM EDT Narrative Resulting Agency Comment Spec In Lab Lan Singh MD HEMATOLOGY ORDERABLE S [facility] [place] [address] * High Sensitivity CRP (02/10/2016 10:41 AM EDT) [facility] C-Reactive Protein High Sensitivity 5.9 mg/L [facility] Comment: Interpretations: 1) For accurate cardiac risk assessment, the average of 2 values >2 weeks apart should be obtained (ref 1&2). A value >10 mg/L indicates an inflammatory condition, concentrations >10 mg/L should not be used for cardiac risk assessment. ?<1.0 mg/L: low risk ?1.0 - 3.0 mg/L: moderate risk ?>3.0 mg/L: high risk groups for future cardiovascular events 2) The general reference range of apparently healthy individuals using this test is <5.0 mg/L (derived from the test package insert) References: 1. Loi PATEL et. al. ??AHA/CDC Scientific Statement: Markers of Inflammation and Cardiovascular Disease. ??Circulation 2003; 107:499-511 2. [place] PM. ??Clinical applications of C-reactive protein for cardiovascular disease detection and prevention. ??Circulation 2003; 107:363-369 Blood specimen (specimen) 02/10/2016 10:41 AM EDT 02/10/2016 11:15 AM EDT Narrative Resulting Agency Comment Spec In Lab Lan Singh MD CHEMISTRY ORDERABLES Performing Organization Address City/[facility]/ZIP Co de Phone Number [facility] [place] [address] * Sedimentation rate (02/10/2016 10:41 AM EDT) Sedimentation Rate Automated 6 0 - 15 mm/hr [facility] Blood specimen (specimen) 02/10/2016 10:41 AM EDT 02/10/2016 11:15 AM EDT Narrative Resulting Agency Comment Spec In Lab Lan Singh MD HEMATOLOGY ORDERABLE S Performing Organization Address [facility] Co de Phone Number [facility] [place] [address] * (ABNORMAL) Comprehensive metabolic panel (non-fasting) (02/10/2016 10:41 AM EDT) Pathologist [facility] Glucose 97 65 - 199 mg/dL [facility] Comment:Diabetes: >=200 mg/d L plus symptoms Blood Urea Nitrogen 29(H) 10 - 20 mg/dL [facility] Creatinine 1.32 0.80 - 1.50 mg/dL [facility] Comment: Please note that the pediatric reference intervals supplied above were not validated at [facility]. Results from pediatric patients should be interpreted in conjunction to the patient's age, height and muscle mass. Sodium 144 135 - 145 mmol/L [facility] Potassium 4.8 3.5 - 5.0 mmol/L [facility] Comment: Please note: ??Patients with WBC >100,000 may have falsely elevated Potassium levels. ??For accurate Potassium quantification in these patients send serum separator tube (gold top) for subsequent determinations. ??Contact the Clinical Chemistry Laboratory if there are any questions. Chloride 104 98 - 107 mmol/L [facility] Carbon Dioxide 28 22 - 31 mmol/L [facility] Anion Gap 12 5 - 15 mmol/L [facility] Calcium 9.6 8.5 - 10.5 mg/dL [facility] Protein, Total 7.3 6.1 - 8.0 gm/dL [facility] Albumin 4.6 3.2 - 5.2 gm/dL [facility] Aspartate Aminotransferase 28 0 - 39 unit/L [facility] Alanine Aminotransferase 22 0 - 55 unit/L [facility] Alkaline Phosphatase 29(L) 40 - 120 unit/L [facility] Bilirubin, Total 0.4 0.2 - 1.3 mg/dL [facility] Bilirubin, Direct 0.1 0.0 - 0.3 mg/dL [facility] Est Glomerular Filtration Rate 54(L) >=60 [facility] Comment: This estimated GFR (eGFR) [...] the following links into your internet browser. [email or web address] [email or web address] Blood specimen (specimen) 02/10/2016 10:41 AM EDT 02/10/2016 11:15 AM EDT Narrative Resulting Agency Comment Spec In Lab Lan Singh MD CHEMISTRY ORDERABLES [facility] [place] [address] documented in this encounter Visit Diagnoses Diagnosis Psoriasis Other psoriasis documented in this encounter Care Teams Shredding Machine Operator Relationship Specialty Start Date End Date Carlos Hernandez DO [address] [place] [address] PCP - General 08/16/10 02/25/23 documented as of this encounter
--- OUTSIDE RECORDS SUMMARY | 2024-09-23 14:22 | XMS_ITS | Encounter Summary ---
Author Organization [facility] Address [facility] Krystle [facility] [place] [address] Care Team Providers Care Machinery Dismantler Name Role Phone Carlos Hernandez DO Primary Care Provider Encounter Details Date Type Department Care Team (Late st Contact Info) Description 04/20/2017 8:30 AM EDT [place] [phone] Lan Singh MD [facility] [place] [address] Psoriasis Social History Tobacco Use Types Packs/Day [...] Time Taken Comments Blood Pressure 159/59 04/20/2017 8:38 AM EDT Pulse 59 04/20/2017 8:38 AM EDT Temperature 36.5 ??C (97.7 ??F) 04/20/2017 8:38 AM ED T Respiratory Rate 20 04/20/2017 8:38 AM EDT Oxygen Saturation 96% 04/20/2017 8:38 AM EDT Inhaled Oxygen Concentration - - Weight 143.8 kg (317 lb) 04/20/2017 8:38 AM EDT Height 177.8 cm (5' 10) 04/20/2017 8:38 AM EDT Body Mass Index 45.48 04/20/2017 8:38 AM EDT documented in this encounter Progress Notes * Lan Singh MD - 04/20/2017 8:30 AM EDT The patient is a 71-year-old male with psoriasis, psoriatic arthritis, sleep apnea, osteoarthritis, dyshidrotic eczema, 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 He is currently on Stelara for psoriasis and psoriatic arthritis. I have tried him on both leflunomide and sulfasalazine. He has not tolerated those at all in addition to the Stelara because he was having psoriatic arthritis. Plaquenil is contraindicated with psoriasis Recently he has developed an erythroderma type rash approximately in February and it has gotten worse and worse and he has not been able to control it with his topical. He is due for Stelara in 2 weeks but we have run out of DMARDs to give him in addition to the Stelara so we are going to switch him to Cosentyx. I gave him a prescription for two 150 mg syringes a week for 4 weeks and I will follow up in 3 weeks at which time I will be reevaluating the situation and trying to extend it to monthly injections. In the interim he is going to talk to his primary about possible drug induced rashes (especially DRESS) and/or see a auto servicer. I think looking at the rash, it is possible it is the erythroderma form of psoriasis but it is also possible that it is a drug rash. I will follow up in 3 weeks. documented in this encounter Plan of Treatment Upcoming Encounters Date Type Department Care Team (Late st Contact Info) Description 12/18/2024 2:00 PM EDT Office Visit Dermatology at [facility] [address] [place] [address] Joyce Snyder MD [facility] [place] [address] documented as of this encounter Goals Goal [...] psoriasis documented in this encounter Care Teams Machinery Dismantler Relationship Specialty Start Date End Date Carlos Hernandez DO [address] [place] [address] PCP - General 08/16/10 02/25/23 documented as of this encounter
--- OUTSIDE RECORDS SUMMARY | 2024-09-23 14:22 | XMS_ITS | Encounter Summary ---
Author Organization [facility] Address [facility] Krystle [place] [address] Care Team Providers Care Steel Buffer Name Role Phone Carlos Hernandez DO Primary Care Provider Reason for Visit * Reason Onset Date Comments Medication Refill 07/06/2016 Encounter Details Date Type Department Care Team (Late st Contact Info) Description 07/06/2016 Refill Cardiology at [address] [phone] Raghu Graham MD Medication Refill Social History [...] [facility] [address] [place] [phone] Joyce Snyder MD [facility] [place] [address] documented as of this encounter Visit Diagnoses Diagnosis Hyperlipidemia, unspecified hyperlipidemia type Essential hypertension Unspecified essential hypertension documented in this encounter Care Teams Steel Buffer Relationship Specialty Start Date End Date Carlos Hernandez DO [address] [facility] [address] [place] [address] PCP - General 08/16/10 02/25/23 documented as of this encounter
--- OUTSIDE RECORDS SUMMARY | 2024-09-23 14:22 | XMS_ITS | Encounter Summary ---
Author Organization Formerly [facility] [place] [address] Care Team Providers Care Pocketed Spring Assembler Name Role Phone Carlos Hernandez DO Primary Care Provider Reason for Visit * Reason Comments Cardiac Valve Problem Encounter Details Date Type Department Care Team (Late st Contact Info) Description 10/27/2013 11:10 AM EST Follow-Up Cardiology at [address] [phone] Williams Miranda MD S/P AVR (aortic valve replacement) (Primary Dx) Discharge Disposition: Home Social History [...] Sign Reading Time Taken Comments Blood Pressure 120/80 10/27/2013 11:08 AM EST Pulse 50 10/27/2013 11:08 AM EST Temperature - - Respiratory Rate - - Oxygen Saturation 96% 10/27/2013 11:08 AM EST Inhaled Oxygen Concentration - - Weight 126 kg (277 lb 12.8 oz) 10/27/2013 11:08 AM EST Height 177.8 cm (5' 10) 10/27/2013 11:08 AM EST Body Mass Index 39.86 10/27/2013 11:08 AM EST documented in this encounter Progress Notes * Kusum Renteria - 11/26/2013 9:37 AM EST * Williams Miranda MD - 10/27/2013 11:43 AM EST Mr. Rosenthal returns for follow up s/p AVR discharged on . He continues to improve, still has chest tenderness/incisional pain which he gets when he is at rehab. This does make him nervous. Stillhas productive cough. Prior to the surgery he was noting dyspnea on exertion and a feeling of tiredness in his chest. These symptoms have resolved. He is noting it is taking some time to get the strength back in his chest - notes an annoying sensitivity around the scar. He had pain in his left neck, right arm, right leg when he woke up in the morning - better but still there. Otherwise he feels OK. Patient Active Problem List Diagnosis Code ??? [...] 278.1 ??? (aortic stenosis) 424.1 Current Outpatient Prescriptions on File Prior to Visit Medication Sig Dispense Refill ??? ferrous sulfate 325 mg (65 mg [...] 150 mg by mouth 2 times daily. Current Facility-Administered Medications on File Prior to Visit Medication Dose Route Frequency Provider Last Rate [...] Pravastatin Sodium ??? Prednisone ??? Tetracyclines BP 120/80 Pulse 50 Ht 177.8 cm (5' 10) Wt 126.009 kg (277 lb 12.8 oz) BMI 39.86 kg/m2 SpO2 96% Chest - clear Cor - S1S2 single and crisp. I do not hear a flow murmur I&P: By history and exam he seems to be doing fine 2 months s/p AVR/CABG. I have discussed withhim the hypersensitivity of his chest wall and that this is most likely due to the growing in of nerve ends that will improve with time. He should return next in 6 months with an echo. documented in this encounter Procedure Notes * Provider, Scanning - 11/26/2013 9:36 AM ESTAssociated Order(s): SCAN DOC: LAB documented in this encounter Plan of Treatment Upcoming Encounters Date Type Department Care Team (Late st Contact Info) Description 12/18/2024 2:00 PM EDT Office Visit Dermatology at [facility] [address] [place] [address] Joyce Snyder MD [facility] [place] [address] documented as of this encounter Procedures Procedure Name Priority Date/Time Associated Diagnosis Comments LAB SCAN 11/26/2013 9:36 AM EST documented in this encounter Results * Echocardiogram Transthoracic(Leb) (05/05/2014 9:19 AM EDT) EF 65 HEART[facility] SYSTEM Anatomical Region Laterality Modality Other 05/05/2014 Narrative 05/05/2014 10:04 AM EDT Procedure: ? Transthoracic Echocardiogram Patient: ? KARLA VILLATORO W ?(Age): 1945(68) Med Rec#: ?[id number] ? Sex: ?M ? Site Loc: ?[facility] ? Ht / Wt: ??(cm)/(kg) ? Pt. Loc: ? Echo Lab ? BSA: ? Study Date: ?05/05/2014 ? Pt. Type: Outpatient Tape: ? Referring: Williams Miranda MD Zipper Trimmer: USTariq Diagnosis: ??S/P CABG (V45.81) ??S/P heart valve replacement (V42.2) CPT Code(s): ??Echo Full (99346), ??Spectral Doppler (28502), ??Color Doppler (88104), Indication(s): ??Aortic prosthesis, F/U Rhythm: SUMMARY: 1. [...] ? Mid-Inferior ?Normal ? Mid-Inferoseptal ?Normal ? [place]-Septal ? Normal ? [place]-Anterior ? Normal ? [place]-Lateral ?Normal ? [place]-Inferior ? Normal ? [place]-Tip ?Normal ? Chambers ?Value ?Units (Range) ? [...] 05/05/2014 10:03:36 Images reviewed and interpretation verified [facility] Cardiac Ultrasound Laboratory Procedure Note Damian Wynn MD - 05/05/2014 Procedure: Transthoracic Echocardiogram Patient: KARLA Maldonado (Age): 1945(68) Med Rec#: [id number] Sex: M Site Loc: [facility] Ht / Wt: (cm)/(kg) Pt. Loc: Echo Lab BSA: Study Date: 05/05/2014 Pt. Type: Outpatient Tape: Referring: Williams Miranda MD Zipper Trimmer: [facility] Diagnosis: S/P CABG (V45.81) S/P heart valve replacement (V42.2) CPT Code(s): Echo Full (88474), Spectral Doppler (71359), Color Doppler (30810), Indication(s): Aortic prosthesis, F/U Rhythm: SUMMARY: 1. [...] change in the inferior vena cava dimension. [facility] Two-dimensional echo, spectral Doppler and color Doppler performed. Wall Motion: Segment Name Rest Base-Anteroseptal Normal Base-Anterior Normal Base-Anterolateral Normal Base-Posterolateral Normal Base-Inferior Normal Base-Inferoseptal Normal Mid-Anteroseptal Normal Mid-Anterior Normal Mid-Anterolateral Normal Mid-Posterolateral Normal Mid-Inferior Normal Mid-Inferoseptal Normal [place]-Septal Normal [place]-Anterior Normal [place]-Lateral Normal [place]-Inferior Normal [place]-Tip Normal Chambers Value Units (Range) LV EF [...] 05/05/2014 10:03:36 Images reviewed and interpretation verified [facility] Cardiac Ultrasound Laboratory Williams Miranda MD ECHO ORDERABLES * SCAN DOC: LAB (11/26/2013 9:36 AM EST) Narrative 11/26/2013 9:36 AM EST Procedure Note Provider, Scanning - 11/26/2013 9:36 AM EST Scanning Provider MEDIA MGR SCAN EXT O RDR/RSLT documented in this encounter Visit Diagnoses Diagnosis S/P AVR (aortic valve replacement)- Primary Heart valve replaced by other means S/P AVR (aortic valve replacement) Heart valve replaced by other means documented in this encounter Care Teams Pocketed Spring Assembler Relationship Specialty Start Date End Date Carlos Hernandez DO [address] [place] [address] PCP - General 08/16/10 02/25/23 documented as of this encounter
--- OUTSIDE RECORDS SUMMARY | 2024-09-23 14:22 | XMS_ITS | Encounter Summary ---
Author Organization [facility] Address [facility] [place] [address] Care Team Providers Care Broadcast Director Operations Name Role Phone Carlos Hernandez DO Primary Care Provider [phone] Reason for Visit * Reason Comments Follow-up Encounter Details Date Type Department Care Team (Late st Contact Info) Description 05/06/2015 10:15 AM EDT [place] [phone] Lan Singh MD [facility] [place] [address] Psoriasis; HTN (hypertension) Discharge Disposition: Home Social History Tobacco Use [...] Sign Reading Time Taken Comments Blood Pressure 156/76 05/06/2015 10:45 AM EDT Pulse 56 05/06/2015 10:45 AM EDT Temperature 36.7 ??C (98.1 ??F) 05/06/2015 10:45 AM E DT Respiratory Rate 18 05/06/2015 10:45 AM EDT Oxygen Saturation - - Inhaled Oxygen Concentration - - Weight - - Height - - Body Mass Index - - documented in this encounter Progress Notes * Lan Singh MD - 05/06/2015 11:38 AM EDT This is a followup appointment on Raghu Rosenthal. date is 1945. 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 He is currently on Stelara for his psoriasis and psoriatic arthritis and is doing relatively well with no skin disease and relatively stable synovial thickening without inflammatory disease. We discussed adding methotrexate, but when he was on methotrexate in 2012 he had to be taken off because of abnormal LFTs and headaches. He could try leflunomide, but his synovitis is essentially stable, so I did not feel that that was a viable consideration. He also has low back pain without radiation. For this, I got LS spine films. He has never had an HLA-B27 and I ordered that. Lastly, he gets episodes of total body pain with no obvious etiology except maybe more exertion than normal and these resolve on their own within a week or so. On exam, he does not have fibromyalgia tender points and I am really not sure what these attacks are. I ordered laboratory studies. I did not make any medication changes. I will follow up in six months. documented in this encounter Miscellaneous Notes * Addendum Note - Miller Fajardo - 05/06/2015 11:48 AM EDTAddended by: MILLER FAJARDO on: 05/06/2015 11:48 AM Modules accepted: Orders documented in this encounter Plan of Treatment Upcoming Encounters Date Type Department Care Team (Late st Contact Info) Description 12/18/2024 2:00 PM EDT Office Visit Dermatology at [address] [place] [address] Joyce Snyder MD [facility] [place] [address] documented as of this encounter Procedures Procedure Name Priority Date/Time Associated Diagnosis Comments URINALYSIS DIPSTICK Routine 05/06/2015 1 2:58 PM EDT HTN (hypertension) HLA-B27 Routine 05/06/2015 12:02 PM EDT Psoriasis SEDIMENTATION RATE Routine 05/06/2015 12 :02 PM EDT Psoriasis WBC Routine 05/06/2015 12:02 PM EDT CRP, CARDIAC RISK (HS CRP) Routine 05/06/2015 12:02 PM EDT Psoriasis CK Routine 05/06/2015 12:02 PM EDT Psoriasis documented in this encounter Results * Urinalysis without microscopic [...] Urine Dipstick Clear Clear CERNER MILLENNIUM Specific [place]born Urine Automated 1.014 1.002 - 1.030 MARCY MARTINSIUM Color, Urine Dipstick Yellow Yellow MARCY MARTINSIUM Urine specimen (specimen) 05/06/2015 12:58 PM EDT 05/06/2015 1:32 PM EDT Narrative Resulting Agency Comment Spec In Lab Lan Singh MD URINE ORDERABLES MARCY FINCH * XR lumbar spine 2 or 3 [...] dislocation. Lan Singh MD IMG DX ORDERABLES * (ABNORMAL) WBC (05/06/2015 12:02 PM EDT) White Blood Cell 3.5(L) 4.0 - 10.0 x10(3)/mcL CERWES MONZONENNIUM Blood specimen (specimen) 05/06/2015 12:02 PM EDT 05/06/2015 12:37 PM EDT Narrative Resulting Agency Comment Spec In Lab Lan Singh MD HEMATOLOGY ORDERABLE S Performing Organization Address [facility] Co de Phone Number [facility] * (ABNORMAL) CK (05/06/2015 12:02 PM EDT) Creatine Kinase 209(H) 0 - 200 unit/L [facility] Blood specimen (specimen) 05/06/2015 12:02 PM EDT 05/06/2015 12:37 PM EDT Narrative Resulting Agency Comment Spec In Lab Lan Singh MD CHEMISTRY ORDERABLES Performing Organization Address [facility] de Phone Number [facility] * High Sensitivity CRP (05/06/2015 12:02 PM EDT) C-Reactive Protein High Sensitivity 6.2 mg/L [facility] Comment: Interpretations: 1) For accurate cardiac risk [...] and Cardiovascular Disease. ??Circulation 2003; 107:499-511 2. Ridker PM. ??Clinical applications of C-reactive protein for cardiovascular disease detection and prevention. ??Circulation 2003; 107:363-369 Blood specimen (specimen) 05/06/2015 12:02 PM EDT 05/06/2015 12:37 PM EDT Narrative Resulting Agency Comment Spec In Lab Lan Singh MD CHEMISTRY ORDERABLES Performing Organization Address [facility] de Phone Number MARCY FINCH * Sedimentation rate (05/06/2015 12:02 PM EDT) Sedimentation Rate Automated 7 0 - 15 mm/hr [facility] Blood specimen (specimen) 05/06/2015 12:02 PM EDT 05/06/2015 12:37 PM EDT Narrative Resulting Agency Comment Spec In Lab Lan Singh MD HEMATOLOGY ORDERABLE S Performing Organization Address [facility] Phone Number MARCY FINCH * (ABNORMAL) HLA-B27 (05/06/2015 12:02 PM EDT) HLA-B27 Negative [facility] HLA B27 Interpretation HLA B27 antigen was not detected. Method: Flow Cytometry Reference: 1.Jose F DA, Tristen JONES, Deyvi Davis, et al: Ankylosing spondylitis and HLA-27. Lancet 1973;1:904-907 2.Prabhjot J, Finesse GIPSON: HLA-B27 typing by use of flow cytofluorometr y. Clin Chem 1987;33:1619-1 623 [facility] White Blood Cell 3.5(L) 4.0 - 10.0 x10(3)/m cL [facility] JOSET[facility] Blood specimen (specimen) 05/06/2015 12:02 PM EDT 05/06/2015 12:37 PM EDT Narrative Resulting Agency Comment Spec In Lab Lan Singh MD HEMATOLOGY ORDERABLE S Performing Organization Address [facility] de Phone Number MARCY FINCH documented in this encounter Visit Diagnoses Diagnosis Psoriasis Other psoriasis HTN (hypertension) Unspecified essential hypertension Psoriasis Other psoriasis documented in this encounter Care Teams Broadcast Director Operations Relationship Specialty Start Date End Date Carlos Hernandez DO [address] [place] [address] PCP - General 08/16/10 02/25/23 documented as of this encounter
--- OUTSIDE RECORDS SUMMARY | 2024-09-23 14:22 | XMS_ITS | Encounter Summary ---
[place] [address] Care Team Providers Care Nail Feeder Name Role Phone Carlos Hernandez DO Primary Care Provider Reason for Visit * Reason Onset Date Comments Other 03/02/2014 gabapentin Encounter Details Date Type Department Care Team (Late st Contact Info) Description 03/02/2014 Telephone [place] [address] Jazmine García RN Other (gabapentin) Social History Tobacco Use Types Packs/Day Years [...] Telephone Encounter - Jazmine García RN - 03/02/2014 2:50 PM EDT [facility] called and left message that he takes a 300 mg dose of gabapentin at night. He would like to receive the 300 mg capsules for refill. * Telephone Encounter - Jazmine García RN - 03/02/2014 11:43 AM EDT Called [facility] and left message asking if he has increased his dose of gabapentin to 300 mg nightly. Explained this medication comes in a 300 mg capsule and could be ordered for that strength as 1 capsule nightly. Asked him to call back and let us know his current dose. documented in this encounter Plan of Treatment Upcoming Encounters Date Type Department Care Team (Late st Contact Info) Description 12/18/2024 2:00 PM EDT Office Visit Dermatology at [address] [address] Joyce Snyder MD [facility] [place] [address] documented as of this encounter Visit Diagnoses Not on filedocumented in this encounter Care Teams Nail Feeder Relationship Specialty Start Date End Date Carlos Hernandez DO [address] [place] [address] PCP - General 08/16/10 02/25/23 documented as of this encounter
--- OUTSIDE RECORDS SUMMARY | 2024-09-23 14:22 | XMS_ITS | Encounter Summary ---
Author Organization [facility] Address [facility] [place] [address] Care Team Providers Care Exchange Teller Name Role Phone Carlos Hernandez DO Primary Care Provider [phone] Reason for Visit * Reason Comments Follow-up Encounter Details Date Type Department Care Team (Late st Contact Info) Description 10/13/2016 1:30 PM EST Office [place] [phone] Lan Singh MD [facility] [place] [address] Psoriasis Social History Tobacco Use Types Packs/Day [...] Sign Reading Time Taken Comments Blood Pressure 147/59 10/13/2016 1:16 PM EST Pulse 53 10/13/2016 1:16 PM EST Temperature 36.7 ??C (98 ??F) 10/13/2016 1:16 PM EST Respiratory Rate - - Oxygen Saturation 98% 10/13/2016 1:16 PM EST Inhaled Oxygen Concentration - - Weight 140.2 kg (309 lb) 10/13/2016 1:16 PM EST Height 177.8 cm (5' 10) 10/13/2016 1:16 PM EST Body Mass Index 44.34 10/13/2016 1:16 PM EST documented in this encounter Progress Notes * Lan Singh MD - 10/13/2016 1:30 PM EST The patient is a 71-year-old male with psoriasis, psoriatic arthritis, sleep apnea, osteoarthritis, dyshidrotic eczema, 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 He is currently on Stelara for psoriasis and psoriatic arthritis, and because of continued jtbx-cxtvymc-zkki-right wrist pain, I started him on Arava in addition to the Stelara. He got a rash on that, and I started him on sulfasalazine. He got fatigue and malaise on it, and those were stopped, but interestingly, his articular complaints have completely gone away. He is on his way to [place] next week and is really looking forward to it. On exam, he is healthy appearing. His blood pressure is 147/59, pulse of 53, pulse ox of 98, temp of 98. His height is 70 inches. His weight is unchanged at 309. His general physical exam, aside from the obesity, is unremarkable. His articular exam is notable for the absence of synovitis, and his skin exam is notable for several warts but no active psoriasis. We discussed Cosentyx as a possible switch from Stelara because he can get [facility] but cannot get Stelara. The jgb-em-bpkovn cost for Stelara is about $600, and since he is doing so well right now, I think it is probably not reasonable to switch him even though it might be less costly. I am going to follow up after he returns from [place] in about 6 months. documented in this encounter Plan of Treatment Upcoming Encounters Date Type Department Care Team (Late st Contact Info) Description 12/18/2024 2:00 PM EDT Office Visit Dermatology at [facility] [address] [address] Joyce Snyder MD [facility] [place] [address] documented as of this encounter Visit Diagnoses Diagnosis Psoriasis Other psoriasis documented in this encounter Care Teams Exchange Teller Relationship Specialty Start Date End Date Carlos Hernandez DO [address] [place] [address] PCP - General 08/16/10 02/25/23 documented as of this encounter
--- OUTSIDE RECORDS SUMMARY | 2024-09-23 14:22 | XMS_ITS | Encounter Summary ---
[place] [address] Care Team Providers Care Drone Operator Name Role Phone Carlos Hernandez DO Primary Care Provider Reason for Visit * Reason Onset Date Comments Other 12/26/2013 Roselyn Encounter Details Date Type Department Care Team (Late st Contact Info) Description 12/26/2013 [place] [phone] Jazmine García RN Other (Roselyn) Social History Tobacco Use Types Packs/Day Years [...] Telephone Encounter - Jazmine García RN - 12/29/2013 1:40 PM EDT Cathy called and left message that Stelara rx should be sent to [facility]. She asked that they call first before they deliver, because they are on vacation until 01/26/14. * Telephone Encounter - Jazmine García RN - 12/26/2013 11:54 AM EDT Cathy called and left message that she has new information on where to send Raghu's stelara rx. She did not leave information in message. Called her back and left message that she can leave that information on nursing line and rx will be sent to them. documented in this encounter Plan of Treatment Upcoming Encounters Date Type Department Care Team (Late st Contact Info) Description 12/18/2024 2:00 PM EDT Office Visit Dermatology at [place] [address] [place] [address] Joyce Snyder MD [facility] [address] documented as of this encounter Visit Diagnoses Not on filedocumented in this encounter Care Teams Drone Operator Relationship Specialty Start Date End Date Carlos Hernandez DO [address] [place] [address] PCP - General 08/16/10 02/25/23 documented as of this encounter
--- OUTSIDE RECORDS SUMMARY | 2024-09-23 14:22 | XMS_ITS | Encounter Summary ---
[place] [address] Care Team Providers Care Business Job Titles Name Role Phone Carlos Hernandez DO Primary Care Provider Reason for Visit * Reason Onset Date Comments Other 07/28/2014 results Encounter Details Date Type Department Care Team (Late st Contact Info) Description 07/28/2014 [place] [phone] Juaquin Vergara RN Other (results) Social History Tobacco Use Types Packs/Day Years [...] encounter Miscellaneous Notes * Telephone Encounter - Juaquin Vergara RN - 07/28/2014 12:25 PM EST Called Raghu and reviewed lab results with him. Let him know Dr. Singh recommends he see a gate watchman to find out why his kidney function continues to be off. He says he is seeing Dr. Hernandez soon and will discuss further with him. He thinks Dr. Hernandez will give him a referral. Told him if he doesn't to call back and Dr. Singh will be happy to refer him. He asked if there was anything he could do to improve things, mentioned weight loss as a good starting point. He says he has been trying. He also asked if any of the medications could be causing the problem. After reviewing medications in his chart told him it seems unlikely and finding out what the gate watchman has to say would be a good plan. He appreciated call and will follow up if he needs referral or has further questions. * Telephone Encounter - Juaquin Vergara RN - 07/28/2014 12:19 PM EST Message copied by JUAQUIN VERGARA on SunJul 28, 2014 12:19 PM ------ Message from: LAN SINGH Created: [facility] Jul 16, 2014 1:02 PM Needs to go to renal ----- Message ----- From: Gladys Claros In [facility] Sent: 07/16/2014 10:38 AM To: Lan Singh MD documented in this encounter Plan of Treatment Upcoming Encounters Date Type Department Care Team (Late st Contact Info) Description 12/18/2024 2:00 PM EDT Office Visit Dermatology at [place] [address] [place] [address] Joyce Snyder MD [facility] [place] [address] documented as of this encounter Visit Diagnoses Not on filedocumented in this encounter Care Teams Business Job Titles Relationship Specialty Start Date End Date Carlos Hernandez DO [address] [place] [address] PCP - General 08/16/10 02/25/23 documented as of this encounter
--- OUTSIDE RECORDS SUMMARY | 2024-09-23 14:22 | XMS_ITS | Encounter Summary ---
Author Organization [facility] Address [facility] [place] [address] Care Team Providers Care Wood Window And Door Craftsman Name Role Phone Carlos Hernandez DO Primary Care Provider Reason for Visit * Reason Comments Follow-up Encounter Details Date Type Department Care Team (Late st Contact Info) Description 10/07/2015 9:45 AM EST Office [place] [phone] Lan Singh MD [facility] [address] Psoriasis Social History Tobacco Use Types Packs/Day [...] Sign Reading Time Taken Comments Blood Pressure 167/63 10/07/2015 9:39 AM EST Pulse 51 10/07/2015 9:39 AM EST Temperature 36.3 ??C (97.4 ??F) 10/07/2015 9:39 AM ES T Respiratory Rate - - Oxygen Saturation 95% 10/07/2015 9:39 AM EST Inhaled Oxygen Concentration - - Weight 130.6 kg (288 lb) 10/07/2015 9:39 AM EST Height 177.8 cm (5' 10) 10/07/2015 9:39 AM EST Body Mass Index 41.32 10/07/2015 9:39 AM EST documented in this encounter Progress Notes * Lan Singh MD - 10/07/2015 10:27 AM EST The patient is a 70-year-old male with psoriasis, psoriatic arthritis, sleep apnea, osteoarthritis, dyshidrotic eczema, 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 He is currently on Stelara for psoriasis and psoriatic arthritis, and is doing relatively well although he developed left greater than right hand pain with swelling and tenderness as well as several new patches of psoriasis. In the past he has been on methotrexate, but it caused abnormal liver function tests and he is not happy about abstaining from alcohol. On exam, he is healthy-appearing, but quite overweight. His blood pressure was 167/63, pulse of 51, pulse ox of 95, temp of 97, height of 70 inches, weight of 288 pounds, he has been as high as 301 and as low as 277, so he is in the middle. His general physical exam is unchanged. His articular exam is notable for synovitis at MCPs of left greater than right hand and he has a psoriatic patch on his left shoulder and also on his breast on the right. I started him on leflunomide 10 mg a day. I ordered laboratory studies. He is going down to [place] in two weeks, so I am asking him to get labs down there in a month and then I will probably move him to 20 mg. I warned him about diarrhea and drinking in moderation. I will followup when he is back from [place] in January. documented in this encounter Miscellaneous Notes * Addendum Note - Teresa Nazario - 10/07/2015 10:35 AM ESTAddended by: TERESA NAZARIO on: 10/07/2015 10:35 AM Modules accepted: Orders documented in this encounter Plan of Treatment Upcoming Encounters Date Type Department Care Team (Late st Contact Info) Description 12/18/2024 2:00 PM EDT Office Visit Dermatology at [facility] [address] [place] [address] Joyce Snyder MD [facility] [place] [address] documented as of this encounter Procedures Procedure Name Priority Date/Time Associated Diagnosis Comments HEMOGRAM Routine 10/07/2015 10:41 AM EST Psoriasis DIFFERENTIAL, AUTOMATED Routine 10/07/2015 10:41 AM EST Psoriasis SEDIMENTATION RATE Routine 10/07/2015 10 :41 AM EST Psoriasis CBC (WITH DIFF) Routine 10/07/2015 10:41 AM EST Psoriasis CRP, CARDIAC RISK (HS CRP) Routine 10/07/2015 10:41 AM EST Psoriasis COMPREHENSIVE METABOLIC PANEL Routine 10/07/2015 10:41 AM EST Psoriasis documented in this encounter Results * Differential, Automated (10/07/2015 10:41 AM EST) Neutrophil % 61.8 % CERNER MILLENNIUM Neutrophil Absolute 3.48 1.50 - 6.30 x10(3)/mcL CERNER MILLENNIUM Lymph % 24.6 % CERNER MILLENNIUM Lymphocytes Abs 1.4 1.0 - 3.6 x10(3)/mcL CERNER MILLENNIUM Monocyte % 6.8 % CERNER MILLENNIUM Monocyte Abs 0.4 0.2 - 1.0 x10(3)/mcL CERNER MILLENNIUM Eos % 6.2 % CERNER MILLENNIUM Eosinophils Abs 0.4 0.0 - 0.5 x10(3)/mcL CERNER MILLENNIUM Basophil % 0.4 % CERNER MILLENNIUM Baso Absolute 0.0 0.0 - 0.2 x10(3)/mcL CERNER MILLENNIUM Immature Gran % 0.20 % CERN ER MILLENNIUM Comment: Immature granulocytes(IG's)percentage and absolute count will include metamyelocytes, myelocytes, and promyelocytes. Blood smears from CBCs yielding IG's will be scanned manually for concordance. If this scan disagrees with the automated IG or if promyelocytes are noted, a manual differential will be performed. Immature Gran Absolute 0.01 0.00 - 0.05 x10(3)/mcL CERNER MILLENNIUM Blood specimen (specimen) 10/07/2015 10:41 AM EST 10/07/2015 10:55 AM EST Narrative Resulting Agency Comment Spec In Lab Lan Singh MD HEMATOLOGY ORDERABLE S CERNER MILLENNIUM * (ABNORMAL) Hemogram (10/07/2015 10:41 AM EST) White Blood Cell 5.6 4.0 - 10.0 x10(3)/mc L CERNER MILLENNIUM Red Blood Cell 5.01 4.63 - 6.08 x10(6)/mc L CERNER MILLENNIUM Hemoglobin 14.5 13.7 - 17.5 gm/dL CERNER MILLENNIUM Hematocrit 43.2 40.0 - 51.0 % CERNER MILLENNIUM Mean Cell Volume 86.2 79.0 - 92.0 fL CERNER MILLENNIUM Mean Cell Hemoglobin 28.9 25.6 - 32.2 pg CERNER MILLENNIUM Mean Cell Hemoglobin Concentration 33.6 32.0 - 36.5 gm/dL CERNER MILLENNIUM Platelet 165 145 - 370 x10(3)/mc L CERNER MILLENNIUM RDW Standard Deviation 45.8 35.0 - 46.0 fL CERNER MILLENNIUM RDW coefficient of variation 14.6(H) 10.9 - 14.4 % CERNER MILLENNIUM Mean Platelet Volume 9.8 9.0 - 12.0 fL CERNER MILLENNIUM Blood specimen (specimen) 10/07/2015 10:41 AM EST 10/07/2015 10:55 AM EST Narrative Resulting Agency Comment Spec In Lab Lan Singh MD HEMATOLOGY ORDERABLE S Performing Organization Address [facility] Phone Number [facility] * High Sensitivity CRP (10/07/2015 10:41 AM EST) C-Reactive Protein High Sensitivity 2.7 mg/L [facility] Comment: Interpretations: 1) For [...] prevention. ??Circulation 2003; [phone]:[id number] Blood specimen (specimen) 10/07/2015 10:41 AM EST 10/07/2015 10:55 AM EST Narrative Resulting Agency Comment Spec In Lab Lan Singh MD CHEMISTRY ORDERABLES Performing Organization Address [facility] Phone Number [facility] * Sedimentation rate (10/07/2015 10:41 AM EST) Pathologist [facility] Sedimentation Rate Automated 6 0 - 15 mm/hr [facility] Blood specimen (specimen) 10/07/2015 10:41 AM EST 10/07/2015 10:55 AM EST Narrative Resulting Agency Comment Spec In Lab Lan Singh MD HEMATOLOGY ORDERABLE S Performing Organization Address [facility] Phone Number [facility] * (ABNORMAL) Comprehensive metabolic panel (non-fasting) (10/07/2015 10:41 AM EST) [facility] Glucose 97 65 - 199 mg/dL CERNER MILLENNIUM Comment:Diabetes: >=200 mg/d L plus symptoms Blood Urea Nitrogen 25(H) 10 - 20 mg/dL CERNER MILLENNIUM Creatinine 1.41 0.80 - 1.50 mg/dL CERNER MILLENNIUM Comment: Please note that the pediatric reference intervals supplied above were not validated at [facility]. Results from pediatric patients should be interpreted in conjunction to the patient's age, height and muscle mass. Sodium 143 135 - 145 mmol/L CERNER MILLENNIUM Potassium 4.2 3.5 - 5.0 mmol/L CERNER MILLENNIUM Comment: Please note: ??Patients with WBC >100,000 may have falsely elevated Potassium levels. ??For accurate Potassium quantification in these patients send serum separator tube (gold top) for subsequent determinations. ??Contact the Clinical Chemistry Laboratory if there are any questions. Chloride 104 98 - 107 mmol/L CERNER MILLENNIUM Carbon Dioxide 26 22 - 31 mmol/L CERNER MILLENNIUM Anion Gap 13 5 - 15 mmol/L CERNER MILLENNIUM Calcium 9.7 8.5 - 10.5 mg/dL CERNER MILLENNIUM Protein, Total 7.5 6.1 - 8.0 gm/dL CERNER MILLENNIUM Albumin 4.5 3.2 - 5.2 gm/dL CERNER MILLENNIUM Aspartate Aminotransferase 26 0 - 39 unit/L CERNER MILLENNIUM Alanine Aminotransferase 23 0 - 55 unit/L CERNER MILLENNIUM Alkaline Phosphatase 30(L) 40 - 120 unit/L CERNER MILLENNIUM Bilirubin, Total 0.3 0.2 - 1.3 mg/dL CERNER MILLENNIUM Bilirubin, Direct 0.1 0.0 - 0.3 mg/dL CERNER MILLENNIUM Est Glomerular Filtration Rate 50(L) >=60 CERNER MILLENNIUM Comment: This estimated GFR [...] the following links into your internet browser. http://Venuetastic/DHnkdep [email or web address] Blood specimen (specimen) 10/07/2015 10:41 AM EST 10/07/2015 10:55 AM EST Narrative Resulting Agency Comment Spec In Lab Lan Singh MD CHEMISTRY ORDERABLES Performing Organization Address City/State/[facility] [place] Phone Number [facility] documented in this encounter Visit Diagnoses Diagnosis Psoriasis Other psoriasis documented in this encounter Care Teams Wood Window And Door Craftsman Relationship Specialty Start Date End Date Carlos Hernandez DO [address] [place] [address] PCP - General 08/16/10 02/25/23 documented as of this encounter
--- OUTSIDE RECORDS SUMMARY | 2024-09-23 14:22 | XMS_ITS | Encounter Summary ---
Author Organization [facility] Address [facility] Krystle [place] [address] Care Team Providers Care Bessemer Converter Operator Name Role Phone Carlos Hernandez DO Primary Care Provider Encounter Details Date Type Department Care Team (Late st Contact Info) Description 04/13/2014 Orders Only Cardiology at [address] [phone] Williams Miranda MD Social History Tobacco Use Types Packs/Day [...] 2:00 PM EDT Office Visit Dermatology at [facility] [address] [place] [address] Jyoce Snyder MD [facility] [place] [address] documented as of this encounter Procedures Procedure Name Priority Date/Time Associated Diagnosis Comments FILM LIBRARY STORAGE ONLY CT CHEST Routine 04/13/2014 8:15 AM EDT documented in this encounter Results * Film Library- Storage only CT Chest (04/13/2014 8:15 AM EDT) Anatomical Region Laterality Modality Chest Other 04/13/2014 8:15 AM EDT Narrative 04/15/2014 5:48 PM EDT This is a Non-reportable exam Procedure Note 04/15/2014 This is a Non-reportable exam Williams Miranda MD IM FILM LIBRARY ORD ERABLES documented in this encounter Visit Diagnoses Not on filedocumented in this encounter Care Teams Bessemer Converter Operator Relationship Specialty Start Date End Date Carlos Hernandez DO [address] [place] [address] PCP - General 08/16/10 02/25/23 documented as of this encounter
--- OUTSIDE RECORDS SUMMARY | 2024-09-23 14:22 | XMS_ITS | Encounter Summary ---
Author Organization [facility] [place] [address] Care Team Providers Care Toll Booth Operator Name Role Phone Carlos Hernandez DO Primary Care Provider Reason for Visit * Reason Onset Date Comments Medication Refill 12/29/2013 Encounter Details Date Type Department Care Team (Late st Contact Info) Description 12/29/2013 [place]ill [place] [address] Lan Singh MD [facility] [place] [address] Psoriasis (Primary Dx) Social History Tobacco Use Types [...] [facility] [address] [place] [address] Joyce Snyder MD [facility] [place] [address] documented as of this encounter Visit Diagnoses Diagnosis Psoriasis- Primary Other psoriasis documented in this encounter Care Teams Toll Booth Operator Relationship Specialty Start Date End Date Carlos Hernandez DO [address] [place] [address] PCP - General 08/16/10 02/25/23 documented as of this encounter
--- OUTSIDE RECORDS SUMMARY | 2024-09-23 14:23 | XMS_ITS | Encounter Summary ---
Author Organization [facility] [address] Care Team Providers Care District Engineer Name Role Phone Macario Hernandez DO Primary Care Provider [phone] Reason for Referral * (Routine) - Closed by system - Referral Specialty Diagnoses / Procedures Referred By Contac t Referred To Contact Cardiac Rehabilitation Diagnoses S/P AVR (aortic valve replacement) and aortoplasty S/P CABG x 2 Mathew Snell MD [facility] [place] [address] Referral ID Status Reason Start Date Expiration Date Visits Requested Visits Authorized [id number] Closed by system - Referral Evaluate and Treat 3 03/05/2014 1 1 Encounter Details Date Type Department Care Team (Latest Contact Info) Description 09/02/2013 10:09 AM EST - 09/06/2013 1:31 PM EST Hospital Encounter Intermediate [place] [address] Mathew Snell MD (aortic stenosis); S/P AVR (aortic valve replacement) and aortoplasty; S/P CABG x 2 Discharge Disposition: Home with VNA Social History Tobacco Use Types Packs/Day Years [...] Sign Reading Time Taken Comments Blood Pressure 146/71 09/06/2013 11:48 AM EST Pulse 57 09/06/2013 11:48 AM EST Temperature 36.8 ??C (98.2 ??F) 09/06/2013 1 1:48 AM EST Respiratory Rate 18 09/06/2013 11:4 8 AM EST Oxygen Saturation 95% 09/06/2013 11: 48 AM EST Inhaled Oxygen Concentration - - Weight 139.4 kg (307 lb 5.1 oz) 09/06/2013 5:00 AM EST Height 177.8 cm (5' 10) 09/02/2013 11: 14 AM EST Body Mass Index 44.1 09/02/2013 11:14 AM EST documented in this encounter Discharge Instructions * Patient Instructions* Partha Cameron MD - 09/06/2013 12:31 PM EST Discharge Instructions: Call your doctor if: You have a fever of greater than 101 degrees, shaking chills, if you develop redness or drainage from your incision sites, or if you have questions. Please call your surgeon's office if you have any discharge or drainage from your chest incision. Your surgeon, Dr. Mathew Snell and/or the Cardiac Surgery Physician Assistants can be reached at . Antibiotic prophylaxis: You will need to take antibiotics prior to many invasive tests and treatments, such as dental cleaning, which should be done every 6 months. Your primary care physician or your dentist can prescribe this medication. Please refer to the card with the [place] [employer] Guidelines for more information. You have been provided with 3 copies of this card, one is for you, give one to your primary care physician and one to your dentist. Activity level: Do not lift more than 10 pounds for 4 weeks. Walk three times a day. You should continue to increase your walks by 1-2 minutes each day, as per your postoperative Cardiac Surgery Guidelines. When you are walking 20 minutes at a time you can cut back to two walks a day. It is expected that you will be walking 20-30 minutes twice a day within 3-4 weeks after discharge to home. Rest between activities and after meals. Use common sense, don't exhaust yourself. Biking: You may use a stationary bicycle whenever you are comfortable enough to permit this. Tighten the resistence slightly. Increase the amount of time on the bicycle as you would do for your walks, a minute or two each day. No biking outside until after your return appointment with Dr. Mathew Eric. You may use a [place] or treadmill but avoid any pulling motion with the arms. Home activities: You may do light housework, e.g. dusting, setting the table, washing dishes, preparing a meal. Light carpentry and gardening are allowed. Avoid trying to open tight jars and stuck windows. No vacuuming, mopping, raking, shoveling, digging or hoeing until after your return visit with the surgeon. Sexual activity: You may engage in sexual activity when you feel ready. Use a position that protects your sternum (breastbone). Do not have your partner lie on your chest. Stairs: There are no restrictions on stair climbing. Use common sense. Don't exhaust yourself. Activities outside the home: After the first week home you may go out to dinner, visit friends, go to a movie, go to orthodox, etc. Heavy activities: No hunting, skiing, jogging, snow shoveling, snowmobiling, lawn mowing, swimming,golf or tennis until after your return appointment with the surgeon. Do not ride motorcycles, ATV'stractors or horses. Avoid the use of a rifle with kickback against the shoulder for six months. Sleep: Try to establish normal sleep patterns. Long naps during the day may make it hard for you tosleep at night. Use the pain medication at bedtime for the first week at home. If you have nightmares, contact us. Some medications make this worse and these can be changed. Smoking: It is very important that you not smoke after surgery. If you need assistance with this call and you can be referred for help. Pain: Pain is very common after cardiac/chest surgery. Use your pain medication as directed. You may notice a burning or numbness on the side of your incision that may include your breast area. This should improve over time but there may be areas that remain numb. Contact us if the pain medication isn't working for you. If you need more pain medication please call us before you run out of pills. Keep opioid pain prescriptions in a safe place and dispose of properly when you no longer need them. Medications: Take only those medications listed on your discharge information. Keep your pain undercontrol so you can be active, do your coughing and breathing exercises and sleep. Contact us if thepain medication isn't working for you. Do not take any herbal preparations until after you return to see the surgeon. DO NOT USE ANY IBUPROFEN (ADVIL, MOTRIN, ETC) OR OTHER NSAIDS (NONSTEROIDAL ANTI-INFLAMMATORY DRUGS) FOR A TOTAL OF 10 DAYS AFTER SURGERY. PLEASE CONTACT THE CARDIOTHORACIC SURGERY OFFICE IF YOU HAVEQUESTIONS ABOUT WHICH DRUGS YOU SHOULD NOT USE. . Diet: You should follow a regular diet until your appetite returns to normal. At that point in timeyou should resume a low fat, low cholesterol, [place] [employer] Diet. Driving: No driving for 4 weeks. Avoid long trips if possible. If you must go on a long trip, stop the car and walk every hour. Shower/Bath: You may shower daily. Wound care: Wash your incisions daily with antibacterial soap and rinse well, pat dry. Assess for any signs of infection such as increased redness, pain, warmth or drainage. Please call your surgeon's office if you have any discharge or drainage from your chest incision. If there is a lot of swelling, apply lawrence wraps during the day and remove at bedtime. Elevate the leg(s) when you are sitting. Follow up appointments: You should arrange to see your primary care physician, MACARIO HERNANDEZ DO, in two weeks. You will return to clinic to see Dr. Mathew Snell in 4 weeks and will have a CXR, EKG and ECHO at that time. A letter will be mailed to you with your appointment information. Future Appointments and Orders Future Appointments: Provider: Department: Dept Phone: Center: 09/26/2013 1:45 PM Lan Singh MD Rheumatology [phone] [facility] Joint Appt Rheumatology Nurse Res [facility] [phone] [facility] documented in this encounter Medications at Time [...] 0.12 % solution as needed. 08/06/2013 03/06/2019 bisacodyl (DULCOLAX) [address] 1 suppository rectally daily as needed. 60 suppository 09/06/2013 10/06/2013 magnesium hydroxide (MILK OF MAGNESIA) 2,400 mg/10 mL suspension Take 10 mLs by mouth daily. 09/06/2013 10/06/2013 metoprolol (LOPRESSOR) 12.5 mg Tab tablet Take 1 tablet by mouth 2 times daily. 60 tablet 3 09/06/2013 10/06/2013 potassium chloride (K-DUR/KLOR-CON) 10 mEq extended release tablet Take 2 tablets by mouth 2 times daily. 56 tablet 0 09/06/2013 10/06/2013 senna-docusate (PERICOLACE) 8.6-50 mg per tablet Take 2 tablets by mouth daily. 60 tablet 09/06/2013 07/16/2014 ustekinumab (STELARA) 90 mg/mL SyrgIndications:Ps oriasis Inject 1 mL subcutaneously Q 3 Months. [...] needed. 06/29/2015 documented as of this encounter Progress Notes * Colin Bolaños PT - 09/06/2013 2:44 PM EST Physical Therapy Note Pt was on the weekend PT list for today; chart reviewed. Pt was d/c'd prior to PT seeing him today.Home PT is recommended, and it has been set up. Colin Bolaños, PT Beeper# [phone] * Partha Cameron MD - 09/06/2013 12:06 PM EST Cardiac Surgery Progress Note: ID: [id number] 68/M POD #4 CABGx3/tissue AVR/aortoplasty Subjective and 24 Hour Events: - bowel movement - walked three times Temperature Temp: 36.8 ??C (98.2 ??F) Temp: [36.8 ??C (98.2 ??F)-36.9 ??C (98.4 ??F)] Heart Rate Heart Rate: 57 Heart Rate: [57-66] Blood Pressure BP: 146/71 mmHg BP: (117-184)/(39-71) Respiratory Rate Resp: 18 Resp: [18] SpO2 SpO2: 95 % SpO2: [80 %-98 %] I/O last 3 completed shifts: In: 1720 [P.O.:1720] Out: 3825 [Urine:3825] I/O this shift: In: - Out: 300 [Urine:300] Admit weight 135.60 kg Current Weight Weight - Scale: 139.4 kg (307 lb 5.1 oz) Patient Vitals for the past 168 hrs: Weight 09/06/13 0500 139.4 kg (307 lb 5.1 oz) 09/05/13 0640 141.2 kg (311 lb 4.6 oz) 09/04/13 0600 140.2 kg (309 lb 1.4 oz) 09/03/13 0700 141.2 kg (311 lb 4.6 oz) 09/02/13 1114 135.6 kg (298 lb 15.1 oz) Physical exam: General: ambulates slowly with walker and aid, good affect Lungs: ctab Heart: RRR, s1/s2 present, no m/r/g Abdomen: nd, +bs, soft, nt Neuro: no focal deficits Ext: 2+ edema b/l Incisions: c/d/i Tubes/Lines/Drains: PIV Recent Labs Basename 09/05/13 0346 WBC 9.3 HGB 10.3* HCT 31.8* PLATELET 119* PT -- INR -- PTT -- FIBRINOGEN -- Recent Labs Basename 09/06/13 0545 09/05/13 0346 09/04/13 0416 09/03/13 1405 NA 141 139 -- -- K 3.6 4.7 4.1 4.1 CL 103 104 -- -- CO2 27 28 -- -- BUN 44* 49* -- -- CREATININE 1.36 1.64* -- -- GLUCOSE 107 113 -- -- CALCIUM 8.6 8.6 -- -- MAGNESIUM -- -- -- -- PHOS -- -- -- -- Assessment/Plan: Doing well on pathway. Appropriate for discharge. CXR yesterday showed left sided effusion but clinically he is well. Will need follow up on Sunday w/ cxr and labs. Needs to wear his bipap. * Kaya Lynn RN - 09/05/2013 1:44 PM EST Addendum: This claim was reviewed to determine the appropriate discharge disposition according to the patient???s post-acute care provided after discharge from inpatient visit. Based on the information available at the time of the review, it has been determined that the original discharge disposition is no longer appropriate and the recommended change is necessary. This determination is based on information regarding post-acute care incurred from the following sources: Medicare Common Working File (CWF) via A V.E.T.S.c.a.r.e. system Direct feedback from the originally designated Home Health facility In particular, this patient was discharged to home health. We verified that the post-acute care didnot take place within the required time frame. OFFICE OF CARE MANAGEMENT CLINICAL STEM FRAZER PROGRESS NOTE e-DH reviewed. Report received from CT Team. Patient continues to require acute inpatient care for the treatment of CABGx3/tissue AVR/aortoplasty. 24 Hour Events: Per CT Note 09/05/12 -tx'd floor -weaned 1L o2 -feels good, no new complaints. Met with patient at bedside. Pt AXOX. Per CT team pt could be d/c over the weekend. Pt would benefit from Home VN. Pt agrees. Per Pre-Op Progress Note pt wishes to have referral placed to [facility]. PHONE: [phone] FAX: [phone] . Orders pended and clinical resource coordinator notified. Plan: CRC will continue to follow for coordination of care and to facilitate discharge planning. Quentin CHEN, RN Clinical Multicultural Manager Pager [phone] * Michael Read PA - 09/05/2013 12:49 PM EST Cardiac Surgery Progress Note: ID: [id number] 68/M POD #3 CABGx3/tissue AVR/aortoplasty Subjective and 24 Hour Events: -tx'd floor -weaned 1L o2 -feels good, no new complaints -no overnight events Temperature Temp: 37.1 ??C (98.8 ??F) Temp: [36.5 ??C (97.7 ??F)-37.3 ??C (99.1 ??F)] Heart Rate Heart Rate: 52 Heart Rate: [47-62] Blood Pressure BP: 129/36 mmHg BP: (111-144)/(36-56) Respiratory Rate Resp: 18 Resp: [16-18] SpO2 SpO2: 92 % SpO2: [89 %-98 %] I/O last 3 completed shifts: In: 2000 [P.O.:1600; I.V.:400] Out: 1575 [Urine:1575] I/O this shift: In: 360 [P.O.:360] Out: 560 [Urine:560] Admit weight 135.60 kg Current Weight Weight - Scale: 141.2 kg (311 lb 4.6 oz) Patient Vitals for the past 168 hrs: Weight 09/05/13 0640 141.2 kg (311 lb 4.6 oz) 09/04/13 0600 140.2 kg (309 lb 1.4 oz) 09/03/13 0700 141.2 kg (311 lb 4.6 oz) 09/02/13 1114 135.6 kg (298 lb 15.1 oz) Physical exam: General: ambulates slowly with walker and aid, good affect Lungs: ctab Heart: RRR, s1/s2 present, no m/r/g Abdomen: nd, +bs, soft, nt Neuro: no focal deficits Ext: 2+ edema b/l Incisions: c/d/i Tubes/Lines/Drains: PIV, wires Recent Labs Basename 09/05/13 0346 09/03/13 0400 09/02/13 2300 09/02/13 1800 09/02/13 1630 WBC 9.3 7.4 -- 10.1* -- HGB 10.3* 11.3* 12.2* 8.5* -- HCT 31.8* 34.1* -- 25.8* -- PLATELET 119* 121* -- 111* 173 PT -- -- -- 19.5* -- INR -- -- -- 1.6* -- PTT -- -- -- 34 -- FIBRINOGEN -- -- -- 153* 151* Recent Labs Basename 09/05/13 0346 09/04/13 0416 09/03/13 1405 09/03/13 0400 09/02/13 2300 NA 139 -- -- -- -- K 4.7 4.1 4.1 3.8 3.7 CL 104 -- -- -- -- CO2 28 -- -- -- -- BUN 49* -- -- 16 -- CREATININE 1.64* -- -- 1.04 -- GLUCOSE 113 -- -- -- -- CALCIUM 8.6 -- -- -- -- MAGNESIUM -- -- -- -- -- PHOS -- -- -- -- -- Assessment/Plan: Doing well on pathway. -continue PT -d/c wires -wean o2, BiPAP at hs -d/c home versus rehab when medically optimized * Erlinda Mckenzie DT - 09/05/2013 11:24 AM EST Nutrition Services - Initial Note Irving Acosta : 1945 AGE: 68 y.o. MedDx/PMHx: s/p tAVR, aortoplasty and CABG x 2 Reason for Nutrition Intervention: Diagnosis Diet Order: Regular Appetite: fair Food allergies: none Chewing/Swallowing difficulty: none Height: (cm) 177.8 Weight: (kg) 135.6 BMI: 43 Assessment: Increased nutritional needs at this time. Tips to Better Food Intake (high protein) / heart healthy booklet provided with means of contact. Nutrition Plan: Regular diet. Boost Plus shakes three times per day. Encourage good po intake. Support and encouragement provided. Nutrition services to follow weekly thru hospital course unless consulted in the interim. JOHN PAUL POWERS * Reba Emery RCP - 09/04/2013 11:00 PM EST Pt sitting up in chair upon my arrival. Pt does not want to use BIPAP this evening. RN instructed to call if pt changes his mind. Machine is on stand by in the room. * Camron Lewis PA - 09/04/2013 11:17 AM EST Cardiac Surgery Progress Note ID: Irving Acosta is a 68 y.o. 2 Days Post-Op s/p tAVR, aortoplasty and CABG x 2 24 Hour Events: - Respiratory status improved. 97 % 4 L NC, did need bipap overnight. - HR 40's this AM, asymptomatic - Pain controlled, No BM, + flatus O: Last value Range last 24 hrs Temperature Temp: 36.7 ??C (98.1 ??F) Temp: [36.5 ??C (97.7 ??F)-37 ??C (98.6 ??F)] Heart Rate Heart Rate: 52 Heart Rate: [41-81] Blood Pressure BP: 117/43 mmHg Respiratory Rate Resp: 18 Resp: [14-31] SpO2 SpO2: 93 % SpO2: [89 %-95 %] Bipap/ 4L NC 09/03 0701 - 09/04 0700 In: 1840.5 [P.O.:780; I.V.:760.5] Out: 1245 [Urine:1135] I: 1.8 O: 1.2 + 595 Admit weight 135.60 kg Current Weight Weight - Scale: 140.2 kg (309 lb 1.4 oz) Physical Exam: Gen - Obese man, NAD CV - RRR, no MRG, sternal incision C/D/I Pulm - CTAB anteriorly Abd - obese, nontender Extrem - 1+ edema bilaterally Labs: No results found for this basename: wbc, hgb, hct, platelet Lab Results Component Value Date Potassium 4.1 09/04/2013 Lab Results Component Value Date BUN 16 09/03/2013 CREATININE 1.04 09/03/2013 IMAGING: A/P: 68yoM 2 Days Post-Op s/p CABG x 2, t AVR and aortoplasty Poor oxygenation- improving Neuro: Dilaudid 2-4mg PRN. APAP. Toradol x 5 doses PRN. Citalopram 20mg daily. CV: Decrease Metoprolol 12.5 mg BID (HR 40-50's). Hydralazine PRN. Fenofibrate 135mg daily. PW in place. Resp: Required Bipap overnight - currently down to 4L NC. Wean as tolerated. Encouraged deep breathing/IS. CxR in AM GI/FEN: advance diet as tolerated. Nexium. RBO's RENAL: Increase Lasix 40mg IV BID. D/c bender Heme: ASA 81mg. If patient is not walking well by Day 3 will start Heparin TID. CBC in AM ID: No issues Endo: SSI Recent Labs Basename 09/04/13 0811 09/04/13 0614 09/04/13 0416 09/04/13 0209 09/04/13 0026 09/03/13 2119 09/03/13 1727 09/03/13 1526 09/03/13 1422 09/03/13 1148 09/03/13 1042 09/03/13 0744 POCGLU 134 147 133 93 131 119 128 134 127 113 125 141 Proph: SCDs. OOB. Dispo: transfer to ICCU. Ambulate/PT. Note- I certify that this patient continues to require inpatient care for telemetry, IV diuresis, and medical optimization following open heart surgery. * Lindsay Mora RCP - 09/04/2013 3:42 AM EST Bipap placed on for sleep, 5 liter bleed in of o2. Sat steady at 94%. RR under 20. Will transition back to NC in am. * Marzena Yip RT - 09/03/2013 6:13 PM EST Mr. Acosta was initially on NC at the start of the day. Early afternoon he experienced increased pain resulting in decreased sats and shallow breaths. RN gave Mr. Acosta a Duoneb breathing treatment and he was subsequently placed on BIPAP. At the time of placing Mr. Acosta on bipap breath sounds were clear but diminished. He remained on BIPAP intermittently over the afternoon. He was later placed OOB in the chair and placed on 5-6L NC. He will be placed on BIPAP overnight. He has bronchodilators ordered PRN. * Lauryn Ahmadi MD - 09/03/2013 7:44 AM EST Cardiac Surgery Progress Note ID: Irving Acosta is a 68 y.o. 1 Day Post-Op s/p tAVR, aortoplasty and CABG x 2 24 Hour Events: Patient was extubated post-operatively to bipap. Has been stable overnight with Bipap and venti mask. Complaining of some pain this morning but otherwise well. GTT NTG @ 100 O: Last value Range last 24 hrs Temperature Temp: 36.9 ??C (98.4 ??F) Temp: [36.3 ??C (97.3 ??F)-37.1 ??C (98.8 ??F)] Heart Rate Heart Rate: 76 Heart Rate: [64-80] Blood Pressure BP: 146/91 mmHg (left arm) Respiratory Rate Resp: 25 Resp: [12-25] SpO2 SpO2: 94 % SpO2: [94 %-100 %] Bipap 09/02 07 - 09/03 0700 In: 3728 [I.V.:2020] Out: 1974 [Urine:1750] 200cc CT Admit weight 135.60 kg Current Weight Weight - Scale: 141.2 kg (311 lb 4.6 oz) Physical Exam: Gen - Obese man, NAD CV - RRR, no MRG, sternal dressing is Clean and dry Pulm - CTAB anteriorly Abd - obese, nontender Extrem - 1+ edema Labs: Lab Results Component Value Date WBC 7.4 09/03/2013 Hemoglobin 11.3* 09/03/2013 Hematocrit 34.1* 09/03/2013 Platelets 121* 09/03/2013 Lab Results Component Value Date Potassium 3.8 09/03/2013 Lab Results Component Value Date BUN 16 09/03/2013 CREATININE 1.04 09/03/2013 IMAGING: A/P: 68yoM 1 Day Post-Op s/p CABG x 2, t AVR and aortoplasty Poor oxygenation likely related to high NTG and shunting. Will order Metoprolol 25mg BID and Hydralazine PRN to get NTG off. Start Lasix 20mg IV BID. Start patient on their statin substitute - Fenofibrate Neuro: Dilaudid 2-4mg PRN. APAP. Citalopram 20mg dailt. CV: Metoprolol 25mg BID. Fenofibrate 135mg daily Resp: Requiring venti mask and Bipap overnight - currently down to 4L NC. Wean as tolerated. Likelyremove mediastinal tubes today. GI/FEN: Sips and chips, advance as tolerated. Nexium. RENAL: Lasix 20mg IV BID. Bender in and monitor urine output closely Heme: ASA 81mg. If patient is not walking well by Day 3 will start Heparin TID. ID: Perioperative cefuroxime Endo: Insulin GTT available. Recent Labs Basename 09/03/13 0744 09/03/13 0604 09/03/13 0411 09/03/13 0058 09/03/13 0009 09/02/13 2312 09/02/13 2201 POCGLU 141 137 153 110 109 128 125 Proph: SCDs. OOB. Dispo: CVCC status. Will transfer to the floor if stable on NC and able to wean off of NTG. * Lindsay Mora RCP - 09/03/2013 2:35 AM EST Extubated to Bipap, 06/28@40% Sat is 96. Tidal volume is 682. Will transition to venti mask and f/b nasal cannula in am. * Becki Stevens RN - 08/27/2013 3:58 PM EST Office of Care Management (OCM) / Clinical Multicultural Manager (CRC)/ PRE-OP ASSESSMENT Reviewed record and interviewed patient. Introduced/reviewed CRC role and services accepted by phone. PREVIOUS FUNCTIONAL STATUS: Independent with ADLs and mobility. Patient has a history of hip replacements and surgeries. He has canes and walkers available and uses them when he is feeling tired. He lives with his in a 2 story home that has one step to enter. Bedroom is upstairs and bathroom is downstairs. (he has a flushable portable commode upstairs if he needs to use it) Patient is independent, active and drives. SOCIAL / FAMILY SUPPORTS: is independent and able to help if any is needed. ADVANCE DIRECTIVES: None on file. Half completed them. Refer to the Advance Care planning note for details HEALTH /PRESCRIPTION COVERAGE: Medicare and [employer]. Uses [facility] CURRENT HOME/COMMUNITY SERVICES/EQUIPMENT: Canes and walkers (for him) RN COMPLIANCE REFERRAL: None PRIMARY CARE PHYSICIAN:Macario Hernandez DO POTENTIAL DISCHARGE NEEDS: Home with VNA: [facility] (patient gives permission for VNA referral) Patient may benefit from acute/SNF/swing/LTAC rehab at discharge. Discussed [facility], Office of Care Management letter from the It Support Analyst pertaining to rehab referrals.Reviewed levels of rehab including SNF, swing, acute and LTAC. Provided [place] list of rehab choices. If patient needs rehab [facility]. Patient does NOTgive permission for SNF referral at this time but would like to meet with an inpatient CRC prior toany referral. Patient is hopeful that he will be able to return to home with VNA services. TRANSPORTATION @ D/C: , [facility] will help assess all discharge needs and will place appropriate orders and referrals as needed. Office of Care Management Kelly Machine Operator Becki Stevens MSN, RN Pager: [phone] documented in this encounter H&P Notes * Mathew Snell MD - 09/02/2013 12:50 PM EST No interval change. Getting over a cold. He is ready for surgery. Source Note - Mathew Snell MD - 09/02/2013 12:47 PM EST Referring Physician: Williams Miranda, Cardiology, [facility] Primary Care Physician: Macario Hernandez D.O. He has been to [facility] once and seen a cardiological there and it appears that it was Dr. Turcios that he saw there and he once a year goes to the [facility]. However, he does not consider that his primary hospital. Mr. Acosta is a 67-year-old obese gentleman who has had an echo done first at the [facility], then [facility], and he has dobutamine stress done here. Each echo puts his valve area right around the 1cm yennifer. [facility] got 1.2, the [facility] got 1.1. His mean gradients on the DSE was a 39 with lower mean gradients on his resting. Mr. Acosta give a history of dyspnea on exertion that he thinks might be getting worse and certainly worsening fatigue. He says 50% of the time when he walks up the stairs in his house, he will have to stop and he will really be short of breath from going up the stairs and he will have to pause at the top. He says this does not happen all the time. He is not sure he has a consistent chest pain syndrome, which is associated with it, but he certainly has felt chest tightness. He denies any lightheadedness. He has not passed out. He has not needed to go to the Emergency Room or be admitted to the hospital for this. He currently, sitting at rest, is not having any symptoms and he says that his walking and cycling that he does have become less. Past Surgical History: He has had both hips replaced at different times by Dr. Barragan here at [facility]. He has had diverticulitis, in which he had a diverting colostomy ultimately got a sigmoid and reconnected and that was done up [place]. He had a subdural hematoma that Dr. Herrera followed here. He has had a panniculectomy done and he has had a left cerebellar stroke. Between the subdural and the cerebellar, he does not believe he has any residual deficits. He is not a Jehovah Witness. On the weekends he drinks a six pack plus shots and he is a previous smoker who has since quit. On his review of symptoms, he has no visual disturbances, residual headaches. His dyspnea is described as earlier as well as his angina. He has no nausea, vomiting, or diarrhea. He has mild chronic swelling in his legs and he has had a colonoscopy done in the last ten years. On physical exam, his blood pressure is 130s over 70s. His pulse rate is regular in the 70s. he appears his stated age. He is a large gentleman and his abdominal girth is his largest area. His chest has no pectus. His lungs are clear. He obviously does not have a catheterization site. He has no varicosities in the standing position and no changes of chronic venostasis. His echoes are described as earlier. The DSE shows he has a normal EF, that his mitral valve does not have any significant disease, the aortic stenosis as described, most likely fusion of the left and right leaflets, which is partial. His ascending aorta on echo is about 3.1 cm and he has a defined STJ. He has no cardiac catheterization of yet. Medications: He takes Stelara. It is an injection and this is for his psoriasis, psoriatic arthritis. He takes Trilipix 135 and that is for his hypercholesterolemia, Zantac for GERD, amlodipine for hypertension, hydrochlorothiazide for hypertension, losartan 100 once a day for hypertension, baby aspirin, magnesium, trazodone 50 as needed at night, citalopram 20 a day for anxiety, and occasional ibuprofen, and he has EpiPen in case for beestings. Impression: This is a 67-year-old gentleman who has a history of dyspnea on exertion and fatigue who has multifactorial causes of this, both his obesity and his aortic stenosis are contributing factors to his symptoms. He has known about this now for a short while and had a long discussion with his referring cutter plastics rolls regarding timing of the surgery, expectations for symptom relief, and at this point he would like to just have this done so that he can go to [place] in November and hopefully work on a weight loss program. We have gone over what is involved with an aortic valve replacement, the risks and benefits and those risks include but are not limited to bleeding, infection, organ failure, stroke, , need for a pacemaker. We have gone over the options of a mechanical valve, a tissue-type valve, the likelihood of him needing another valve replacement with a tissue-type valve, and taking Coumadin. He is adamant about not taking Coumadin and would opt for a tissue-type valve, knowing full well that he will need something else done. He had the opportunity to ask questions. We discussed the postoperative stay in the hospital as well as time until full recovery, and the likelihood of making it down to [place] in November. He knows that he will have to have a cardiac catheterization. This will be scheduled hopefully for next week and we scheduled the date of surgery tentatively as September 02 but that will be pending his cardiac catheterization and I will see him on that day and we briefly talked about the possibility of coronary bypass grafting depending on what shows his cardiac cath. His was present for the entire discussion and also had the opportunity to participate. * Mathew Snell MD - 09/02/2013 12:47 PM EST Referring Physician: Williams Miranda, Cardiology, [facility] Primary Care Physician: Macario Hernandez D.O. He has been to [facility] once and seen a cardiological there and it appears that it was Dr. Turcios that he saw there and he once a year goes to the [facility]. However, he does not consider that his primary hospital. Mr. Acosta is a 67-year-old obese gentleman who has had an echo done first at the [facility], then [facility], and he has dobutamine stress done here. Each echo puts his valve area right around the 1cm yennifer. [facility] got 1.2, the [facility] got 1.1. His mean gradients on the DSE was a 39 with lower mean gradients on his resting. Mr. Acosta give a history of dyspnea on exertion that he thinks might be getting worse and certainly worsening fatigue. He says 50% of the time when he walks up the stairs in his house, he will have to stop and he will really be short of breath from going up the stairs and he will have to pause at the top. He says this does not happen all the time. He is not sure he has a consistent chest pain syndrome, which is associated with it, but he certainly has felt chest tightness. He denies any lightheadedness. He has not passed out. He has not needed to go to the Emergency Room or be admitted to the hospital for this. He currently, sitting at rest, is not having any symptoms and he says that his walking and cycling that he does have become less. Past Surgical History: He has had both hips replaced at different times by Dr. Barragan here at [facility]. He has had diverticulitis, in which he had a diverting colostomy ultimately got a sigmoid and reconnected and that was done up [place]. He had a subdural hematoma that Dr. Herrera followed here. He has had a panniculectomy done and he has had a left cerebellar stroke. Between the subdural and the cerebellar, he does not believe he has any residual deficits. He is not a Jehovah Witness. On the weekends he drinks a six pack plus shots and he is a previous smoker who has since quit. On his review of symptoms, he has no visual disturbances, residual headaches. His dyspnea is described as earlier as well as his angina. He has no nausea, vomiting, or diarrhea. He has mild chronic swelling in his legs and he has had a colonoscopy done in the last ten years. On physical exam, his blood pressure is 130s over 70s. His pulse rate is regular in the 70s. he appears his stated age. He is a large gentleman and his abdominal girth is his largest area. His chest has no pectus. His lungs are clear. He obviously does not have a catheterization site. He has no varicosities in the standing position and no changes of chronic venostasis. His echoes are described as earlier. The DSE shows he has a normal EF, that his mitral valve does not have any significant disease, the aortic stenosis as described, most likely fusion of the left and right leaflets, which is partial. His ascending aorta on echo is about 3.1 cm and he has a defined STJ. He has no cardiac catheterization of yet. Medications: He takes Stelara. It is an injection and this is for his psoriasis, psoriatic arthritis. He takes Trilipix 135 and that is for his hypercholesterolemia, Zantac for GERD, amlodipine for hypertension, hydrochlorothiazide for hypertension, losartan 100 once a day for hypertension, baby aspirin, magnesium, trazodone 50 as needed at night, citalopram 20 a day for anxiety, and occasional ibuprofen, and he has EpiPen in case for beestings. Impression: This is a 67-year-old gentleman who has a history of dyspnea on exertion and fatigue who has multifactorial causes of this, both his obesity and his aortic stenosis are contributing factors to his symptoms. He has known about this now for a short while and had a long discussion with his referring cutter plastics rolls regarding timing of the surgery, expectations for symptom relief, and at this point he would like to just have this done so that he can go to [place] in November and hopefully work on a weight loss program. We have gone over what is involved with an aortic valve replacement, the risks and benefits and those risks include but are not limited to bleeding, infection, organ failure, stroke, , need for a pacemaker. We have gone over the options of a mechanical valve, a tissue-type valve, the likelihood of him needing another valve replacement with a tissue-type valve, and taking Coumadin. He is adamant about not taking Coumadin and would opt for a tissue-type valve, knowing full well that he will need something else done. He had the opportunity to ask questions. We discussed the postoperative stay in the hospital as well as time until full recovery, and the likelihood of making it down to [place] in November. He knows that he will have to have a cardiac catheterization. This will be scheduled hopefully for next week and we scheduled the date of surgery tentatively as September 02 but that will be pending his cardiac catheterization and I will see him on that day and we briefly talked about the possibility of coronary bypass grafting depending on what shows his cardiac cath. His was present for the entire discussion and also had the opportunity to participate. documented in this encounter Procedure Notes * Provider, Scanning - 09/07/2013 9:06 AM ESTAssociated Order(s): SCAN DOC: LAB * Provider, Scanning - 09/07/2013 9:06 AM ESTAssociated Order(s): SCAN DOC: IMPLANTABLE DEVICES * Provider, Scanning - 09/07/2013 9:06 AM ESTAssociated Order(s): SCAN DOC: VEGETABLE COOK documented in this encounter Nursing Notes * Mary Ann De La Garza RN - 09/02/2013 2:40 PM EST External zoll pads placed on patient after transferring to OR bed. Intraoperative medications used: Nitroglycerin 100 mcg/ml injected in 1 ml increments into cardioplegia line throughout procedure. Family updated throughout procedure. documented in this encounter Miscellaneous Notes * Miscellaneous - Provider, Scanning - 09/07/2013 9:06 AM EST * Miscellaneous - Provider, Scanning - 09/07/2013 9:06 AM EST * Miscellaneous - Provider, Scanning - 09/07/2013 9:06 AM EST * Miscellaneous - Provider, Scanning - 09/07/2013 9:06 AM EST * Miscellaneous - Provider, Scanning - 09/07/2013 9:06 AM EST * Miscellaneous - Provider, Scanning - 09/07/2013 9:06 AM EST * Plan of Care - Ruma Brady RN - 09/06/2013 11:47 AM EST Problem: Skin Integrity Impairment, Risk/Actual (Adult, Obstetric) Goal: Skin Integrity Impairment, Risk/Actual: Skin Integrity/Wound Healing Midsternal incision clean, dry, intact, well approximated, some scabbing. [place] in place. Problem: Cardiac Surgery (Adult) Goal: Prevent/Manage Potential Problems Based on my scope of practice, I assessed for signs and symptoms of potential problems that could be present as documented. Pt post cardiac surgery with possible discharge home today. Midsternal incision with rajan intact, open to air, small scabbing near bottom of incision. Right leg incision with bandage in place, dryand intact. Problem: Pain, Acute (Adult, Obstetric) Goal: Acute Pain: Acceptable Pain Control/Comfort Level - Pain, Acute (Adult, Obstetric) Pt denies pain. Problem: Trauma/Injury Risk (Adult, Obstetric) Goal: Trauma/Injury Risk: Absence of Trauma/Injury/Falls Pt alert and oriented, up per self. * Initial Assessments - Monique Brian, PT - 09/05/2013 3:44 PM EST Physical Therapy Progress Note Session # 3 Cardiac Surgery Patient Profile: Patient is a 68 y.o. male of Mathew Avery MD, admitted on 09/02/2013 with and CAD. Patient underwent tAVR, Cabg x2, and aortoplasty on 09/02/13. Post-op course unremarkable except O2 requirements and bipap at night. PT consulted. Precautions: sternal (no lifting >7-10 lbs.; no pushing or pulling with UE's; no excessive cheststretching). BIPAP at night; Nasal cannula; and history of B ROBERT. PMH: Past Medical History Diagnosis Date ??? GERD (gastroesophageal reflux disease) ??? Renal insufficiency ??? CAD (coronary artery disease) ??? Hypertension ??? Unspecified cerebral artery occlusion with cerebral infarction ??? OLIVIER (obstructive sleep apnea) SAH Fatty liver Pancreatitis Cholelithiasis Diverticulitis S/p panniculectomy Left Cerebellar stroke Noncompliance to BIPAP at home. HLD Social History: Patient lives with their spouse in a 2 story home. One step into house and 13 step with a railing to get to bedroom. Pt and are both retired. Baseline Mobility: Pt intermittently uses a cane. Equipment at home: has a RW, tub transfer bench, and toilet riser---> from hip replacement surgeries. Subjective: I slept in my recliner last night so I really have not practiced in and out of bed.. Objective: Seen for exercise and functional mobility training. Pain: Mild to moderate sternal pain, mostly with coughing. Vital Signs/Cardiopulmonary Status: SpO2: 94% at rest on RA after removing 1L. Exercise and bed mobility 92-94% on RA. 89-91% on RA with gait, encouraging paced breathing. HR: 60-70 BP: 136/63, Pre PT Incentive Spirometer: Volume: [id number] Quality: good. Many productive coughs. Mental Status/Behavior:WNLS Bed Mobility: Supine to Sit:rolling right with min to mod assist of LEs and trunk. Sit to Supine: rolling right with cues to exhale on exertion and mod assist of trunk Transfers: Sit to Stand: close supervision to cga, bed and recliner Stand to Sit: Same as above Pt needed cues to maintain sternal precautions. Gait: Distance: 80-90' Device used: Wide Walker. Level of assist: Minimal with cues for deep, paced breathing and a few standing rests. Education: Pt was educated on post-op sternal precautions, use of incentive spirometer, the importance of deep breathing, splinted cough and post-op cardiac exercises. Pt performed 3-5 reps of the following exercises today: head nod, head twist, shoulder flexion, knee extension, ankle circles, and ankle pumps. Pt was has a written list of exercises and precautions. Pt's status, treatment, and mobility recommendations were discussed with the nursing staff. Pt leftwith nursing. Pt left with family present. Nurse aware pt is on RA and will monitor pt.. Assessment: Pt is s/p CT surgery, POD 3. Slow to progress with gait and functional mobility. Could stay in a recliner on the first floor if he needed too. Weekend PT to see to assist with progressinggait and transfers. Pt will need to do stairs to get into house and then possibly to get to bedroom. Equipment needs: NONE. Has equipment at home. Recommend VNA PT at home. Goals: To be achieved by 09/08/13. Ongoing. 1. Pt will ambulate with stand-by assistance 150 ft. with a least restrictive assistive device to allow for a safe d/c. 2. Pt will perform all post op cardiac surgery exercises adequately. 3. Pt will demonstrate independence with incentive spirometer and/or threshold PEP to promote lung function. 4. Pt will demonstrate understanding of sternal precautions to allow for a safe d/c. 5. Pt will be able to transfer sit <-> stand with stand-by assistance while maintaining sternal precautions to allow for a safe d/c. 6. Pt will be able to go supine <-> sit with stand-by assistance while maintaining sternal precautions to allow for a safe d/c. 7. Pt will be able to go up and down 13 stairs using a rail and cane for balance only with stand-byassistance to prepare for a safe d/c. Treatment Plan: Pt to be seen 4-5x for patient and family/caregiver education and training on sternal precautions, functional mobility, gait, stairs, exercise, safety awareness, endurance & energy conservation, and d/c planning. Tentative D/C Plan: Home with support/assistance expected Pt understands and agrees with PT plan, goals, and tentative discharge plan: Yes Total time spent with patient: 38 minutes [id number] Total timed interventions: 38 minutes MONIQUE BRIAN PT Pager: [phone] Physical Therapy Rehabilitation Department * Consult Note - Yi Stearns RN - 09/05/2013 12:28 PM EST [facility] CARDIAC REHABILITATION Irving Acosta was seen today regarding participation in outpatient Phase 2 Cardiac Rehabilitationat [facility] . A referral will be sent to this program. The patient was given contact information and should expect to be contacted by the program within 1-2 weeks after discharge from [facility]. * Initial Assessments - Monique Brian PT - 09/04/2013 2:21 PM EST Physical Therapy Progress Note Session # 2 Cardiac Surgery Patient Profile: Patient is a 68 y.o. male of Mathew Avery MD, admitted on 09/02/2013 with and CAD. Patient underwent tAVR, Cabg x2, and aortoplasty on 09/02/13. Post-op course unremarkable except O2 requirements and bipap at night. PT consulted. Precautions: sternal (no lifting >7-10 lbs.; no pushing or pulling with UE's; no excessive cheststretching). BIPAP at night; Nasal cannula; bender; RIJ; and history of B ROBERT. PMH: Past Medical History Diagnosis Date ??? GERD (gastroesophageal reflux disease) ??? Renal insufficiency ??? CAD (coronary artery disease) ??? Hypertension ??? Unspecified cerebral artery occlusion with cerebral infarction ??? OLIVIER (obstructive sleep apnea) SAH Fatty liver Pancreatitis Cholelithiasis Diverticulitis S/p panniculectomy Left Cerebellar stroke Noncompliance to BIPAP at home. HLD Social History: Patient lives with their spouse in a 2 story home. One step into house and 13 step with a railing to get to bedroom. Pt and are both retired. Baseline Mobility: Pt intermittently uses a cane. Equipment at home: has a RW, tub transfer bench, and toilet riser---> from hip replacement surgeries. Subjective: I feel pretty woozy today. I will do it if you think I should (regarding walking). Objective: Seen for exercise and functional mobility training. Pain: Mild to moderate sternal pain, mostly with coughing. Vital Signs/Cardiopulmonary Status: SpO2: 95% at rest on 4L and 97% after walking, on 4L. HR: 50-60s BP: 136/63, Pre PT and 147/42, after walking Incentive Spirometer: Volume: 750-1000 ml Quality: fair Mental Status/Behavior: Initially somnolent. Participated fully with PT. Bed Mobility: Supine to Sit: NE Sit to Supine: NE Transfers: Sit to Stand: min+ assist of 1 Stand to Sit: min+ assist of 1 Pt needed cues to maintain sternal precautions. Gait: Distance: ~28'-30' Device used: Triangular O2 cart Level of assist: Minimal Balance: min assist with standing Education: Pt was educated on post-op sternal precautions, use of incentive spirometer, the importance of deep breathing, splinted cough and post-op cardiac exercises. Pt performed 3-5 reps of the following exercises today: head nod, head twist, shoulder flexion, knee extension, ankle circles, and ankle pumps. Pt was has a written list of exercises and precautions. Pt's status, treatment, and mobility recommendations were discussed with the nursing staff. Pt leftwith nursing. Pt left with transportation to go for a cxr. Assessment: Pt is s/p CT surgery, POD 2. Pt is still limited by pain and effects of pain medicine. May need to try a RW with pt for more support. Tolerated exercises. Equipment needs: NONE. Has equipment at home. Goals: To be achieved by 09/08/13. 1. Pt will ambulate with stand-by assistance 150 ft. with a least restrictive assistive device to allow for a safe d/c. 2. Pt will perform all post op cardiac surgery exercises adequately. 3. Pt will demonstrate independence with incentive spirometer and/or threshold PEP to promote lung function. 4. Pt will demonstrate understanding of sternal precautions to allow for a safe d/c. 5. Pt will be able to transfer sit <-> stand with stand-by assistance while maintaining sternal precautions to allow for a safe d/c. 6. Pt will be able to go supine <-> sit with stand-by assistance while maintaining sternal precautions to allow for a safe d/c. 7. Pt will be able to go up and down 13 stairs using a rail and cane for balance only with stand-byassistance to prepare for a safe d/c. Treatment Plan: Pt to be seen 4-5x for patient and family/caregiver education and training on sternal precautions, functional mobility, gait, stairs, exercise, safety awareness, endurance & energy conservation, and d/c planning. Tentative D/C Plan: Home with support/assistance expected Pt understands and agrees with PT plan, goals, and tentative discharge plan: Yes Total time spent with patient: 28 minutes TEFTES Total timed interventions: 28 minutes MONIQUE BRIAN, PT Pager: [phone] Physical Therapy Rehabilitation Department * Plan of Care - Rafael Ho RN - 09/04/2013 9:02 AM EST Problem: Trauma/Injury Risk (Adult, Obstetric) Goal: Trauma/Injury Risk: Absence of Trauma/Injury/Falls Patient agrees to call for help before getting out of bed or chair. Fall risk assessment completed. * Plan of Care - Rafael Ho RN - 09/04/2013 9:01 AM EST Problem: Pain, Acute (Adult, Obstetric) Goal: Acute Pain: Acceptable Pain Control/Comfort Level - Pain, Acute (Adult, Obstetric) Patient states pain is well controlled on current pain regimine. * Plan of Care - Rafael Ho RN - 09/04/2013 8:58 AM EST Problem: Cardiac Surgery (Adult) Goal: Prevent/Manage Potential Problems Based on my scope of practice, I assessed for signs and symptoms of potential problems that could be present as documented. Dr. Snell and team in for rounds and plan of care discussed. Patient's questions were answered. * Plan of Care - Rafael Ho RN - 09/04/2013 8:57 AM EST Problem: Skin Integrity Impairment, Risk/Actual (Adult, Obstetric) Goal: Skin Integrity Impairment, Risk/Actual: Skin Integrity/Wound Healing All dressings to incisions and invasive lines are clean dry and intact. No signs of skin breakdown presently. * Initial Assessments - Monique Brian, PT - 09/03/2013 2:02 PM EST Physical Therapy Evaluation Cardiac Surgery Patient Profile: Patient is a 68 [address] of [address] Snell, Mathew Jennings MD, admitted on 09/02/2013 with and CAD. Patient underwent tAVR, Cabg x2, and aortoplasty on 09/02/13. Post-op course unremarkable except O2 requirements and bipap at night. PT consulted. Precautions: sternal (no lifting >7-10 lbs.; no pushing or pulling with UE's; no excessive cheststretching). BIPAP at night; Nasal cannula; bender; CT; RIJ; Right radial line; history of B ROBERT. PMH: Past Medical History Diagnosis Date ??? GERD (gastroesophageal reflux disease) ??? Renal insufficiency ??? CAD (coronary artery disease) ??? Hypertension ??? Unspecified cerebral artery occlusion with cerebral infarction ??? OLIVIER (obstructive sleep apnea) SAH Fatty liver Pancreatitis Cholelithiasis Diverticulitis S/p panniculectomy Left Cerebellar stroke Noncompliance to BIPAP at home. HLD Social History: Patient lives with their spouse in a 2 story home. One step into house and 13 step with a railing to get to bedroom. Pt and are both retired. Baseline Mobility: Pt intermittently uses a cane. Equipment at home: has a RW, tub transfer bench, and toilet riser---> from hip replacement surgeries. Subjective: I was pretty unsteady when I got up last time. Objective: Seen for evaluation, pt ed, exercise and functional mobility training. Pain: 6-7/10 sternal pain, especially with position changes and coughing. Vital Signs/Cardiopulmonary Status: SpO2: 96% on 4L HR: 50-60 BP: 129/50s to 140s/50s with mobility, via radial line Incentive Spirometer: Volume: 500 ml Quality: poor Mental Status/Behavior: alert, oriented to person, place, and time Skin: Lawrence wrap on entire RLE. General anasarca. CDI dressing over sternum. Sensation: denied numbness or paresthesias. ROM: shoulder flexion ~110 degrees after 5 reps. Elbow and hand AROM wfls. Ankle and knee AROM wfls. Hips flex to 90 sitting. Strength: Right UE initially difficulty to move compared to left, but equal after exercises. BLE AROM symmetric and at least antigravity. Bed Mobility: Supine to Sit: NE Sit to Supine: Min assist of 2 Sliding pt up in bed with pt pushing with feet and mod assist of 2, using drawsheet. Pt needed cues to maintain sternal precautions. Transfers: Sit to Stand: mod assist, rocking to 3, hugging pillow Stand to Sit: mod assist, hugging pillow Pt needed cues to maintain sternal precautions. Gait: Distance: ~6-8 steps, pivoting 270 degrees chair to bed Device used: no assistive device Level of assist: moderate assist Balance: needed mod assist standing and fair sitting balance. Informed Consent: The patient agrees to and understands the PT treatment plan and goals. Education: Pt was educated on post-op sternal precautions, use of incentive spirometer, the importance of deep breathing, splinted cough and post-op cardiac exercises. Pt performed 3-5 reps of the following exercises today: head nod, head twist, shoulder flexion, knee extension, ankle circles, and ankle pumps. Pt was given a written list of exercises and precautions. Pt's status, treatment, and mobility recommendations were discussed with the nursing staff. Pt leftwith nursing. Pt in the bed. Assessment: Pt is s/p CT surgery, POD 1. Functional mobility is limited by post op pain, obesity and imbalance. Pt would benefit from continued physical therapy to maximize functional mobility, independence and safety. Pt has good rehab potential. Expect slow progress and may need to use a rolling walker initially given, history of cebellar CVA and bilateral THAs. May need VNA services. TBD.. Equipment needs: NONE. Has equipment at home. Goals: To be achieved by 09/08/13. 1. Pt will ambulate with stand-by assistance 150 ft. with a least restrictive assistive device to allow for a safe d/c. 2. Pt will perform all post op cardiac surgery exercises adequately. 3. Pt will demonstrate independence with incentive spirometer and/or threshold PEP to promote lung function. 4. Pt will demonstrate understanding of sternal precautions to allow for a safe d/c. 5. Pt will be able to transfer sit <-> stand with stand-by assistance while maintaining sternal precautions to allow for a safe d/c. 6. Pt will be able to go supine <-> sit with stand-by assistance while maintaining sternal precautions to allow for a safe d/c. 7. Pt will be able to go up and down 13 stairs using a rail and cane for balance only with stand-byassistance to prepare for a safe d/c. Treatment Plan: Pt to be seen 4-5x for patient and family/caregiver education and training on sternal precautions, functional mobility, gait, stairs, exercise, safety awareness, endurance & energy conservation, and d/c planning. Tentative D/C Plan: Home with support/assistance expected Pt understands and agrees with PT plan, goals, and tentative discharge plan: Yes Total time spent with patient: 35 minutes Total timed interventions: 0 minutes MONIQUE BRIAN PT Pager: [phone] Physical Therapy Rehabilitation Department * Op Note - Mathew Snell MD - 09/02/2013 9:37 PM EST 09/07/2013 Irving Acosta 1945 [id number] Preoperative Diagnosis: Coronary artery disease Stable Angina Symptomatic aortic stenosis Postoperative Diagnosis: Coronary artery disease Stable Angina Symptomatic aortic stenosis Procedure: Aortic valve replacement Bovine Pericardial 25 mm CABG times 2: GUERRA to LAD, SVG to om. Endoscopic vein harvest aortoplasty with a patch Surgeon: Mathew Snell M.D. Health Services Information Specialist: Camron Oconnell PA-C Anesthesia: General endotracheal anesthesia Drains: Two mediastinal tubes Pacing Wires: Two A-wires, two V-wires. EBL: 300 mL Findings: callcified valve, no leaks, good targets, nl function Procedure: The patient was taken to the Operating Room and had a radial A-line placed. All the proper lines and monitors were placed by Anesthesia. The patient was then prepped and draped in the normal sterile fashion. The right leg was used to harvest saphenous vein using an endoscopic technique. A vertical incisionwas made on the medial aspect of the knee. The Biogazelle XB7 system was used to dissect out the veinanterior and posteriorly. All the side branches were cauterized. The vein was ligated distally and proximally. It was removed through the incision at the knee. The vein was flushed with heparinized saline in a reverse direction. All the side branches were clipped. The vein was untwisted and stripedwith a sterile pen. The leg had a DEEP drain placed in it. It was irrigated out with antibiotic solution and closed immediately. The chest was opened along the midline. Cautery was used on the sternal edges and bone wax was lightly applied to the divided marrow of the sternum. The left santosh-sternum was elevated. The pleura were taken down, and the mammary artery was dissected free clipping all side branches. Heparin was given. Several minutes later the distal end of the mammary was clipped and tied on the chest wall, and the bleeding end had a bulldog placed across it. It was prepared for bypass by spatulating it open, injecting it with verapamil, and rolling it up into a nitroglycerin-soaked sponge. The PATRICIA had excellent flow. The Rultract was removed. Two antibiotic-soaked towels were used to bumper the sternum. The sternal retractor was used to open the sternum. The overlying pericardium was opened in an inverse-T fashion and hung to the edge of the sternal retractor. Full-dose heparin was given. The aorta was cannulated. The right atrium had the venous cannula placed through the IVC. A retrograde was placed through the right atrium into the coronary sinus. The antegrade was place mid ascending aorta which also doubled as the root vent. With the ACT above 450, we went on bypass. The targets were inspected. The aorta was crossclamped and the heart was arrested with cold blood cardioplegia antegrade and retrograde. We drifted to 32 degrees Celsius. The bypasses were as follows: The om target was identified and opened and in an end to side fashion the SVG was anastomosed with a running 7.0 prolene. Cardiopelegia was given down the graft and there were no leaks. The heart wasfilled and the graft was measured for length and trimmed. The vein graft remained connected to the cardioplegia circuit during the case. The proximal anastomosis was created after the AVR using a punch made in the aorta with a 6-0. A washer was used to identify the proximal. The patricia was taken out of the left chest and a slit was created in the L side of the pericardium making sure to identify the L phrenic nerve. The patricia was anastomosed to the LAD with a running 8-0 prolene. The bulldog was removed to test the graft then replaced. The PA and aorta were . The aorta was cross clamped and the heart was arrested with cold blood cardioplegia antegrade and retrograde. CO2 insufflated the field and the aorta was opened in anoblique fashion. The valve was removed sharply with scissors and annulus debrided with pituitary rongeurs. The ventricle and root were irrigated with cold saline. The valve annulus was sized and a valve was chosen. V to A sutures with pledgets were placed around the annulus then through the valve which was seated and then tied down. The replacement was inspected and found to be satisfactory. The aorta was then closed by fashoning a triangular patch to allow closure of the aorta around the valvestruts. This was anchored to the annulus with several plegeted sutures. The aorta was then closed to the patch in 2x layers and then bio glue. As stated above, the proximal vein graft anastomoses were created. At this point, hotshots were given. The heart began beating in a sinus rhythm. The crossclamp was removed. The grafts were inspected. The heart was allowed to re-perfuse. The retrograde was removed and oversewn; so was the antegrade. An angled chest tube was placed behind the heart. Both chests were suctioned out, and the lungs were re-inflated. After a period of rewarming and allowing the heart to re-perfuse, we from bypass. The venous cannula was removed and the pursestring was tieddown and oversewn. Protamine was given. The aortic cannula was removed. Both pursestrings were tieddown and oversewn. We had no further bleeding. A straight chest tube was placed in front of the heart. Vanco paste was applied to the sternum. Interrupted steel cables were used to close the chest, several layers of Vicryl, and a 4-0 Monocryl were used to close the overlying soft tissue. Glue and clean dry sterile dressings were applied. The patient was transported to the [facility] on lisa. All counts were correct. * OR Attestation - Mathew Snell MD - 09/02/2013 6:54 PM EST Attestation: Case Date: 09/02/2013 I performed this procedure without the involvement of a resident. MATHEW SNELL MD 09/02/2013 * Brief Op Note - Mathew Snell MD - 09/02/2013 6:51 PM EST Brief Operative Note Patient Name: Irving Acosta : [id number] MR#: [id number] Case Date: 09/02/2013 Surgeon: Surgeon(s) and Role: * Mathew Snell MD - Primary * Michael Read PA - Resident-Junior Buyer * Lauryn Ahmadi MD - Resident-Junior Buyer Preoperative diagnosis: as Postoperative diagnosis: as, cad Procedure(s): Tissue AVR 25mm pericardial valve aortoplasty with pericardial patch (gusset) cabgx2 guerra to lad, svg to om Endo vein harvest Anesthesia: General Findings: good targets, calcified valve, nl function and no leaks. Complications: none Fluids: 1 L ns Estimated Blood Loss: 300cc Drains: 2 med tubes Disposition: taken directly to the ICU, intubated and in a critical condition. Condition: doing well without problems (Please see the Surgical Encounter Summary for any Implant and Specimen details pertinent to this patient.) * Discharge Summary - Partha Cameron MD - 09/02/2013 4:39 PM EST Cardiac Surgery Attending: Dr. Snell Primary Diagnosis: Coronary Artery Disease Aortic Stenosis Secondary Diagnosis: He has had both hips replaced at different times by Dr. Barragan here at [facility]. He has had diverticulitis, in which he had a diverting colostomy ultimately got a sigmoid and reconnected and that was done up lutts. He had a subdural hematoma that Dr. Herrera followed here. He has had a panniculectomy done and he has had a left cerebellar stroke. Between the subdural and the cerebellar, he does not believe he has any residual deficits. Disposition: Patient discharged to home Condition at Discharge: stable Patient Active Problem List Diagnosis Code ??? 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 (aortic stenosis) 424.1 Past Medical History Diagnosis Date ??? GERD (gastroesophageal reflux disease) ??? Renal insufficiency ??? CAD (coronary artery disease) ??? Hypertension ??? Unspecified cerebral artery occlusion with cerebral infarction ??? OLIVIER (obstructive sleep apnea) Primary Care Physician: MACARIO HERNANDEZ, DO Prior To Admission Medications: Prescriptions prior to admission Medication Sig Dispense Refill ??? chlorhexidine (HIBICLENS) 4 % external liquid Apply topically daily as needed. Shower from headto toe with Chlorhexidine the night before surgery . 120 mL 0 ??? losartan (COZAAR) 100 mg tablet Take 100 mg by mouth. ??? amlodipine (NORVASC) 10 mg tablet Take 10 mg by mouth daily. ??? Magnesium Chloride 64 mg TbEC Take [...] mg by mouth 2 times daily. ??? hydrochlorothiazide (HYDRODIURIL) 25 mg tablet Take 25 mg by mouth daily. ??? ibuprofen (ADVIL;MOTRIN) 800 mg tablet 800 MG = 1 Tablet(s), PO, Q6H,PRN ??? amoxicillin (AMOXIL) 500 mg capsule Take 500 mg by mouth 4 times daily. Takes before Dental procedure Indications: Pneumococcal Pneumonia ??? ustekinumab (STELARA) 90 mg/mL Syrg Inject 1 mL subcutaneously Q 3 Months. Then every twelve weeks 1 mL 3 ??? epiNEPHrine (EPIPEN JR.) 0.15 mg/0.3 mL PnIj injection Inject into the muscle as needed. Allergies: Allergies Allergen Reactions ??? Vicodin (Hydrocodone-Acetaminophen) Shortness Of Breath Problems breathing ??? Morphine Sulfate Nausea And Vomiting ??? Bee Venom (Honey Bee) ??? Clarithromycin ??? Hydrocodone Bit ??? Indomethacin ??? Lansoprazole ??? Lipitor (Atorvastatin) Joint pain ??? Other (Unclassified Drug) IV dyes ??? Pravastatin Sodium ??? Prednisone ??? Tetracyclines History of Presentation: Williams Miranda, Cardiology, [facility] Primary Care Physician: Macario Hernandez D.O. He has been to [facility] once and seen a cardiological there and it appears that it was Dr. Turcios that he saw there and he once a year goes to the [facility]. However, he does not consider that his primary hospital. Mr. Acosta is a 67-year-old obese gentleman who has had an echo done first at the [facility], then [facility], and he has dobutamine stress done here. Each echo puts his valve area right around the 1cm yennifer. [facility] got 1.2, [facility] got [facility]. His mean gradients on the DSE was a 39 with lower mean gradients on his resting. Mr. Acosta give a history of dyspnea on exertion that he thinks might be getting worse and certainly worsening fatigue. He says 50% of the time when he walks up the stairs in his house, he will have to stop and he will really be short of breath from going up the stairs and he will have to pause at the top. He says this does not happen all the time. He is not sure he has a consistent chest pain syndrome, which is associated with it, but he certainly has felt chest tightness. He denies any lightheadedness. He has not passed out. He has not needed to go to the Emergency Room or be admitted to the hospital for this. He currently, sitting at rest, is not having any symptoms and he says that his walking and cycling that he does have become less Operations and Procedures: 09/02/13 Tissue AVR 25mm pericardial valve aortoplasty with pericardial patch (gusset) cabgx2 guerra to lad, svg to om Endo vein harvest Hospital Course: Irving Acosta was admitted to [facility] on 09/02/2013 via the Same Day Program. He was brought to the operating room where Dr. Mathew Snell performed the above procedure. He tolerated the procedure well and was brought to the Cardiovascular Intensive Care Unit for recovery. Please see his operative note for specific details. He initially required the pharmacologic support of intravenous phenylephrine and vasopressin. He was extubated from the ventilator on the day of surgery. Overnight he did well and on postoperative day #1 all drips were weaned to off and hewas transferred to the Intermediate Cardiac Care Unit for continued rehabilitation. Lasix was started to diurese the volume he gained perioperatively and he responded appropriately. He was started on beta blockade and it was maximized. All tubes, lines, and epicardial pacing wires were removed without incident. He voided normally after his Bender was removed. He worked with Physical Therapy and his discharge plan at this time is to home with VNA. By POD#4 he had met all criteria for discharge to home. Pain was controlled on oral medications. Hehad walked 5 minutes and gone up and down stairs. He was tolerating a regular diet and had had a bowel movement. He did have a left sided pleural effusion that was noted on POD 3 x ray but clinically he was stable. This will be monitored clinically as well as with a follow up film at his appointment on Sunday. Vital Signs: Last set of vitals: BP 146/91 Pulse 80 Temp 36.9 ??C (98.4 ??F) Resp 18 Ht 177.8 cm (5' 10) Wt 135.6 kg (298 lb 15.1 oz) BMI 42.89 kg/m2 SpO2 96% Patient Vitals for the past 168 hrs: Weight 09/02/13 1114 135.6 kg (298 lb 15.1 oz) Current weight: 139 Preoperative weight: 135.6 kg Pertinent physical exam findings prior to discharge: General: ambulates slowly with walker and aid, good affect Lungs: ctab Heart: RRR, s1/s2 present, no m/r/g Abdomen: nd, +bs, soft, nt Neuro: no focal deficits Ext: 2+ edema b/l Incisions: c/d/i Tubes/Lines/Drains: PIV Important Lab Data: Lab Results Component Value Date WBC 5.5 08/11/2013 RBC 4.80 08/11/2013 HGB 14.0 08/11/2013 HCT 42.5 08/11/2013 PLATELET 173 08/11/2013 No results found for this basename: INR in the last 168 hours Lab Results Component Value Date NA 141 08/11/2013 K 4.1 08/11/2013 CL 102 08/11/2013 CO2 28 08/11/2013 BUN 22* 08/11/2013 CREATININE 1.26 08/11/2013 Pending Lab Data at Discharge: None Discharge Medications: Medications prior to admission that will be resumed at discharge: Medication Sig Dispense Refill ??? Magnesium Chloride 64 mg TbEC Take [...] mg by mouth 2 times daily. ??? amoxicillin (AMOXIL) 500 mg capsule Take 500 mg by mouth 4 times daily. Takes before Dental procedure Indications: Pneumococcal Pneumonia ??? ustekinumab (STELARA) 90 mg/mL Syrg Inject 1 mL subcutaneously Q 3 Months. Then every twelve weeks 1 mL 3 ??? epiNEPHrine (EPIPEN JR.) 0.15 mg/0.3 mL PnIj injection Inject into the muscle as needed. New medications prescribed at discharge: Medication Sig Dispense Refill ??? acetaminophen (TYLENOL) 500 mg tablet Take 2 tablets by mouth every 6 hours. 30 tablet ??? bisacodyl (DULCOLAX) [address] 1 suppository rectally daily as needed. 60 suppository ??? HYDROmorphone (DILAUDID) 2 mg tablet Take 1-3 tablets by mouth every 4 hours as needed for Pain. 100 tablet 0 ??? magnesium hydroxide (MILK OF MAGNESIA) 2,400 mg/10 mL suspension Take 10 mLs by mouth daily. ??? metoprolol (LOPRESSOR) 12.5 mg Tab tablet Take 1 tablet by mouth 2 times daily. 60 tablet 3 ??? potassium chloride (K-DUR/KLOR-CON) 10 mEq extended release tablet Take 2 tablets by mouth 2 times daily. 56 tablet 0 ??? senna-docusate (PERICOLACE) 8.6-50 mg per tablet Take 2 tablets by mouth daily. 60 tablet General Instructions None Discharge Instructions: Call your doctor if: You have a fever of greater than 101 degrees, shaking chills, if you develop redness or drainage from your incision sites, or if you have questions. Please call your surgeon's office if you have any discharge or drainage from your chest incision. Your surgeon, Dr. Mathew Snell and/or the Cardiac Surgery Physician Assistants can be reached at . Antibiotic prophylaxis: You will need to take antibiotics prior to many invasive tests and treatments, such as dental cleaning, which should be done every 6 months. Your primary care physician or your dentist can prescribe this medication. Please refer to the card with the [place] [employer] Guidelines for more information. You have been provided with 3 copies of this card, one is for you, give one to your primary care physician and one to your dentist. Activity level: Do not lift more than 10 pounds for 4 weeks. Walk three times a day. You should continue to increase your walks by 1-2 minutes each day, as per your postoperative Cardiac Surgery Guidelines. When you are walking 20 minutes at a time you can cut back to two walks a day. It is expected that you will be walking 20-30 minutes twice a day within 3-4 weeks after discharge to home. Rest between activities and after meals. Use common sense, don't exhaust yourself. Biking: You may use a stationary bicycle whenever you are comfortable enough to permit this. Tighten the resistence slightly. Increase the amount of time on the bicycle as you would do for your walks, a minute or two each day. No biking outside until after your return appointment with Dr. Mathew Eric. You may use a [place] or treadmill but avoid any pulling motion with the arms. Home activities: You may do light housework, e.g. dusting, setting the table, washing dishes, preparing a meal. Light carpentry and gardening are allowed. Avoid trying to open tight jars and stuck windows. No vacuuming, mopping, raking, shoveling, digging or hoeing until after your return visit with the surgeon. Sexual activity: You may engage in sexual activity when you feel ready. Use a position that protects your sternum (breastbone). Do not have your partner lie on your chest. Stairs: There are no restrictions on stair climbing. Use common sense. Don't exhaust yourself. Activities outside the home: After the first week home you may go out to dinner, visit friends, go to a movie, go to orthodox, etc. Heavy activities: No hunting, skiing, jogging, snow shoveling, snowmobiling, lawn mowing, swimming,golf or tennis until after your return appointment with the surgeon. Do not ride motorcycles, ATV'stractors or horses. Avoid the use of a rifle with kickback against the shoulder for six months. Sleep: Try to establish normal sleep patterns. Long naps during the day may make it hard for you tosleep at night. Use the pain medication at bedtime for the first week at home. If you have nightmares, contact us. Some medications make this worse and these can be changed. Smoking: It is very important that you not smoke after surgery. If you need assistance with this call and you can be referred for help. Pain: Pain is very common after cardiac/chest surgery. Use your pain medication as directed. You may notice a burning or numbness on the side of your incision that may include your breast area. This should improve over time but there may be areas that remain numb. Contact us if the pain medication isn't working for you. If you need more pain medication please call us before you run out of pills. Keep opioid pain prescriptions in a safe place and dispose of properly when you no longer need them. Medications: Take only those medications listed on your discharge information. Keep your pain undercontrol so you can be active, do your coughing and breathing exercises and sleep. Contact us if thepain medication isn't working for you. Do not take any herbal preparations until after you return to see the surgeon. DO NOT USE ANY IBUPROFEN (ADVIL, MOTRIN, ETC) OR OTHER NSAIDS (NONSTEROIDAL ANTI-INFLAMMATORY DRUGS) FOR A TOTAL OF 10 DAYS AFTER SURGERY. PLEASE CONTACT THE CARDIOTHORACIC SURGERY OFFICE IF YOU HAVEQUESTIONS ABOUT WHICH DRUGS YOU SHOULD NOT USE. . Diet: You should follow a regular diet until your appetite returns to normal. At that point in timeyou should resume a low fat, low cholesterol, [place] [employer] Diet. Driving: No driving for 4 weeks. Avoid long trips if possible. If you must go on a long trip, stop the car and walk every hour. Shower/Bath: You may shower daily. Wound care: Wash your incisions daily with antibacterial soap and rinse well, pat dry. Assess for any signs of infection such as increased redness, pain, warmth or drainage. Please call your surgeon's office if you have any discharge or drainage from your chest incision. If there is a lot of swelling, apply lawrence wraps during the day and remove at bedtime. Elevate the leg(s) when you are sitting. Follow up appointments: You should arrange to see your primary care physician, MACARIO HERNANDEZ DO, in two weeks. You will return to clinic to see Dr. Mathew Snell in 4 weeks and will have a CXR, EKG and ECHO at that time. A letter will be mailed to you with your appointment information. Future Appointments and Orders Future Appointments: Provider: Department: Dept Phone: Center: 09/26/2013 1:45 PM Lan Singh MD Rheumatology [phone] [facility] Joint Appt Rheumatology Nurse Res LEB 5C [phone] [facility] Special Physician Instructions: Needs to have follow up on Sunday with CXR and labs. Cardiac Rehabilitation: arranged Home oxygen therapy: N/A Arrangements for VNA/home care: Referral to Home Health Routine, Clinic Performed Agency name and contact information: [facility] health Patient location post discharge: Home What services are requested: Registered Nurse, Physical Therapy Responsible MD post discharge contact info: Dr. Paz DOCUMENTATION FOR VNA SERVICES (INCLUDING THOSE PATIENTS WITH MEDICARE COVERAGE REQUIRING HOME VNA SERVICES AND/OR HOSPICE SERVICES) PATIENT'S LOCATION: [address] [id number] (home) No relevant phone numbers on file. Supervisor Edging's Name: Pt In discussion with the attending physician, it is certified that this patient is under their care and that they, or a Nurse Practitioner, or Physician Health Services Information Specialist who is working directly with them, had a face to face encounter that meets the physician face to face encounter requirements with this patient on 09/05/2013 The encounter with the patient was in whole, or in part, for the following medical condition, which is the primary reason for home health care services: CABGx3 In discussion with the provider, it is certified that, based on their findings, the following services are medically necessaryfor home health services. To provide the following care/treatments with the clinical findings supporting the need for services as follows: HOME HEALTH AGENCY: [facility] PHONE: [phone] FAX: [phone] RN orders: Cardiopulmonary assessment, incisional assessment, assess vital signs, assessment of rehab progress, medication management and effectiveness, home safety evaluation. Please draw INR if indicated and send result to: n/a PT ORDERS: Continue rehab for endurance, gait stability and strength with mobility and transfers. Home safety evaluation. Home exercise program if appropriate. Start of Care Date:24-48 hours after d/c. SPECIAL INSTRUCTIONS: For any follow up questions, needs, or issues please call the Cardiac Surgery Office at [phone] FOR MEDICARE ONLY: In discussion with the attending physician, it is certified that the clinical findings support that this patient is homebound i.e. absences from home require considerable and taxing effort due to: Restricted mobility and poor activity tolerance due to recent cardiac surgery Home Health agencies which cover the area of patient's residence have been reviewed, either verbally or in writing, and patient/family have chosen the agency as noted. REMOVE CHEST TUBE SUTURES ON OR AFTER 09/12/13 Partha Cameron MD Section [place] [address] Date: 09/02/2013 CC: DO Ruben SALES John R, MD [facility] [address] * Miscellaneous - Provider, Scanning - 09/02/2013 12:57 PM EST * Miscellaneous - Provider, Scanning - 09/02/2013 12:57 PM EST documented in this encounter Plan of Treatment Upcoming Encounters Date Type Department Care Team (Late st Contact Info) Description 12/18/2024 2:00 PM EDT Office Visit Dermatology at [facility] [address] [place] [address] Joyce Snyder MD [facility] [place] [address] Scheduled Referrals Name Type Priority Associated Diagnoses Orde r Schedule Referral to Cardiac Rehab Outpatient Referral Routine S/P AVR (aortic valve replacement) and aortoplasty S/P CABG x 2 Ordered: 09/06/2013 documented as of this encounter Procedures Procedure Name Priority Date/Time Associated Diagnosis Comments LAB SCAN 09/07/2013 9:06 AM EST IMPLANTABLE DEVICES SCAN 09/07/2013 9:06 AM EST VEGETABLE COOK SCAN 09/07/2013 9:06 AM EST BASIC METABOLIC PANEL Routine 09/06/2013 5:45 AM EST POCT GLUCOSE Routine 09/05/2013 4:56 PM EST POCT GLUCOSE Routine 09/05/2013 11:37 AM EST POCT GLUCOSE Routine 09/05/2013 8:01 AM EST POCT GLUCOSE Routine 09/05/2013 4:09 AM EST DIFFERENTIAL, AUTOMATED Routine 09/05/2013 3:46 AM EST CBC (WITH DIFF) Routine 09/05/2013 3:46 AM EST BASIC METABOLIC PANEL Routine 09/05/2013 3:46 AM EST POCT GLUCOSE Routine 09/04/2013 11:52 PM EST POCT GLUCOSE Routine 09/04/2013 8:37 PM EST POCT GLUCOSE Routine 09/04/2013 5:16 PM EST XR CHEST PA AND LATERAL Routine 09/04/2013 1:55 PM EST POCT GLUCOSE Routine 09/04/2013 12:25 PM EST POCT GLUCOSE Routine 09/04/2013 8:11 AM EST POCT GLUCOSE Routine 09/04/2013 6:14 AM EST POCT GLUCOSE Routine 09/04/2013 4:16 AM EST POTASSIUM Routine 09/04/2013 4:16 AM EST POCT GLUCOSE Routine 09/04/2013 2:09 AM EST POCT GLUCOSE Routine 09/04/2013 12:26 AM EST POCT GLUCOSE Routine 09/03/2013 9:19 PM EST POCT GLUCOSE Routine 09/03/2013 5:27 PM EST POCT GLUCOSE Routine 09/03/2013 3:26 PM EST POCT GLUCOSE Routine 09/03/2013 2:22 PM EST POTASSIUM Routine 09/03/2013 2:05 PM EST POCT GLUCOSE Routine 09/03/2013 11:48 AM EST POCT GLUCOSE Routine 09/03/2013 10:42 AM EST POCT GLUCOSE Routine 09/03/2013 7:44 AM EST POCT GLUCOSE Routine 09/03/2013 6:04 AM EST POCT GLUCOSE Routine 09/03/2013 4:11 AM EST DIFFERENTIAL, AUTOMATED Routine 09/03/2013 4:00 AM EST CARDIAC ENZYMES ([facility]/CGP) Routine 09/03/2013 4:00 AM EST CREATININE Routine 09/03/2013 4:00 AM EST CBC (WITH DIFF) Routine 09/03/2013 4:00 AM EST BUN Routine 09/03/2013 4:00 AM EST POTASSIUM Routine 09/03/2013 4:00 AM EST GLUCOSE, FASTING Routine 09/03/2013 4:00 AM EST EXTUBATE Routine 09/03/2013 2:20 AM EST BLOOD GAS ARTERIAL POC Routine 3 2:03 AM EST POCT GLUCOSE Routine 09/03/2013 12:58 AM EST POCT GLUCOSE Routine 09/03/2013 12:09 AM EST POCT GLUCOSE Routine 09/02/2013 11:12 PM EST HEMOGLOBIN Routine 09/02/2013 11:00 PM EST POTASSIUM Routine 09/02/2013 11:00 PM EST POCT GLUCOSE Routine 09/02/2013 10:01 PM EST XR CHEST ONE VIEW STAT 09/02/2013 7:4 3 PM EST BLOOD GAS ARTERIAL POC Routine 3 7:26 PM EST BLOOD GAS ARTERIAL POC Routine 3 6:02 PM EST DIFFERENTIAL, AUTOMATED STAT 09/02/2013 6:00 PM EST APTT STAT 09/02/2013 6:00 PM EST THROMBIN TIME STAT 09/02/2013 6:00 PM EST PROTHROMBIN TIME STAT 09/02/2013 6:00 PM EST FIBRINOGEN STAT 09/02/2013 6:00 PM EST CBC (WITH DIFF) STAT 09/02/2013 6:00 PM EST BLOOD GAS ARTERIAL POC Routine 3 5:30 PM EST BLOOD GAS ARTERIAL POC Routine 3 5:00 PM EST @AORTOPLASTY FOR SUPRAVALVULAR STENOSIS Routine 09/02/2013 4:42 PM EST (aortic stenosis) BLOOD GAS ARTERIAL POC Routine 3 4:32 PM EST FIBRINOGEN STAT 09/02/2013 4:30 PM EST PLATELET COUNT STAT 09/02/2013 4:30 PM EST @CABG,USING ARTERIAL GRAFT;SINGLE ARTERIAL GRAFT Routine 09/02/2013 4:22 PM EST (aortic stenosis) @CABG,VENOUS & ARTERIAL GRAFT;SINGLE VEIN GRAFT Routine 09/02/2013 4:22 PM EST (aortic stenosis) BLOOD GAS ARTERIAL POC Routine 3 4:02 PM EST SURGICAL PATHOLOGY REPORT Routine 09/02/2013 3:50 PM EST SPECIMEN TO PATHOLOGY Routine 09/02/2013 3:50 PM EST BLOOD GAS ARTERIAL POC Routine 3 3:34 PM EST BLOOD GAS ARTERIAL POC Routine 3 2:13 PM EST @AORTOPLASTY FOR SUPRAVALVULAR STENOSIS (WRVU 29.33) 09/02/2013 1:17 PM EST (aortic stenosis) @CABG, VENOUS & ARTERIAL GRAFT;SINGLE VEIN GRAFT (WRVU 3.61) 09/02/2013 1:17 PM EST (aortic stenosis) @CABG, USING ARTERIAL GRAFT;SINGLE ARTERIAL GRAFT (WRVU 33.75) 09/02/2013 1:17 PM EST (aortic stenosis) ENDOSCOPIC HARVEST VEIN(S) FOR CABG (WRVU 0.31) 09/02/2013 1:17 PM EST (aortic stenosis) @REPLACE AORTIC VALVE, OPEN, W\CPB, W\PROSTHETIC VALVE (WRVU 41.32) 09/02/2013 1:17 PM EST (aortic stenosis) PREPARE RBC STAT 09/02/2013 12:55 PM EST ENDOSCOPIC HARVEST VEIN(S) FOR CABG Routine 09/02/2013 10:40 AM EST (aortic stenosis) documented in this encounter Results * SCAN DOC: IMPLANTABLE DEVICES (09/07/2013 9:06 AM EST) Narrative 09/07/2013 9:06 AM EST Procedure Note Provider, Scanning - 09/07/2013 9:06 AM EST Scanning Provider MEDIA MGR SCAN EXT O RDR/RSLT * SCAN DOC: LAB (09/07/2013 9:06 AM EST) Narrative 09/07/2013 9:06 AM EST Procedure Note Provider, Scanning - 09/07/2013 9:06 AM EST Scanning Provider MEDIA MGR SCAN EXT O RDR/RSLT * SCAN DOC: VEGETABLE COOK (09/07/2013 9:06 AM EST) Anatomical Region Laterality Modality Other Narrative 09/07/2013 9:19 AM EST Procedure Note Provider, Scanning - 09/07/2013 9:06 AM EST Scanning Provider MEDIA MGR SCAN EXT O RDR/RSLT * (ABNORMAL) Basic Metabolic Panel (non-fasting) (09/06/2013 5:45 AM EST) [facility] Glucose 107 60 - 199 mg/dL [facility] Comment:Diabetes: >=200 mg/d L plus symptoms Blood Urea Nitrogen 44(H) 10 - 20 mg/dL [facility] Creatinine 1.36 0.80 - 1.50 mg/dL [facility] Comment: Please note that the pediatric reference intervals supplied above were not validated at [facility]. Results from pediatric patients should be interpreted in conjunction to the patient's age, height and muscle mass. Sodium 141 135 - 145 mmol/L [facility] Potassium 3.6 3.5 - 5.0 mmol/L [facility] Comment: result rechecked- Please note: ??Patients with WBC >100,000 may have falsely elevated Potassium levels. ??For accurate Potassium quantification in these patients send serum separator tube (gold top) for subsequent determinations. ??Contact the Clinical Chemistry Laboratory if there are any questions. Chloride 103 98 - 107 mmol/L [facility] Carbon Dioxide 27 22 - 31 mmol/L [facility] Anion Gap 11 5 - 15 mmol/L [facility] Calcium 8.6 8.5 - 10.5 mg/dL [facility] Est Glomerular Filtration Rate 52(L) >=60 [facility] Comment: This estimated GFR [...] the following links into your internet browser. http://www.nkdep.nih.gov/lab-evaluation.shtml http://www.kidney.org/professionals/ Blood specimen (specimen) 09/06/2013 5:45 AM EST 09/06/2013 6:32 AM EST Narrative Resulting Agency Comment Spec In Lab Mathew Snell MD CHEMISTRY ORDERABLE S Performing Organization Address [facility] Phone Number [facility] * POCT Glucose (09/05/2013 4:56 PM EST) Glucose, POC 112 60 - 199 mg/dL [facility] Comment: Supplemental ranges: <110 mg/dL before meals <200 mg/dL all other times of the day Blood specimen (specimen) 09/05/2013 4:56 PM EST 09/05/2013 4:56 PM EST Mathew Snell MD POINT OF CARE TEST ORDERABLES Performing Organization Address [facility] de Phone Number [facility] * POCT Glucose (09/05/2013 11:37 AM EST) Glucose, POC 100 60 - 199 mg/dL [facility] Comment: Supplemental ranges: <110 mg/dL before meals <200 mg/dL all other times of the day Blood specimen (specimen) 09/05/2013 11:37 AM EST 09/05/2013 11:37 AM EST Mathew Snell MD POINT OF CARE TEST ORDERABLES Performing Organization Address [facility] de Phone Number [facility] * POCT Glucose (09/05/2013 8:01 AM EST) Glucose, POC 117 60 - 199 mg/dL [facility] Comment: Supplemental ranges: <110 mg/dL before meals <200 mg/dL all other times of the day Blood specimen (specimen) 09/05/2013 8:01 AM EST 09/05/2013 8:01 AM EST aMthew Snell MD POINT OF CARE TEST ORDERABLES Performing Organization Address [facility] Phone Number [facility] * POCT Glucose (09/05/2013 4:09 AM EST) Glucose, POC 118 60 - 199 mg/dL [facility] Comment: Supplemental ranges: <110 mg/dL before meals <200 mg/dL all other times of the day Blood specimen (specimen) 09/05/2013 4:09 AM EST 09/05/2013 4:09 AM EST Mathew Snell MD POINT OF CARE TEST ORDERABLES Performing Organization Address [facility] Phone Number [facility] * (ABNORMAL) Differential, Automated (09/05/2013 3:46 AM EST) Neutrophil % 76.6(H) 34.0 - 71.0 % [facility] Neutrophil Absolute 7.15(H) 1.50 - 6.30 x10(3)/mc L [facility] Lymph % 10.2(L) 19.0 - 53.0 % [facility] Lymphocytes Abs 1.0 1.0 - 3.6 x10(3)/mc L [facility] Monocyte % 10.7 4.0 - 13.0 % [facility] Monocyte Abs 1.0 0.2 - 1.0 x10(3)/mc L [facility]NI[facility] Eos % 2.1 0.0 - 7.0 % [facility] Eosinophils Abs 0.2 0.0 - 0.5 x10(3)/mc L [facility]ILL[facility]NI[facility] Basophil % 0.2 0.0 - 2.0 % [facility] Baso Absolute 0.0 0.0 - 0.2 x10(3)/mc L [facility] Immature Gran % 0.20 0.00 - 0.66 % [facility] Comment: Immature granulocytes(IG's)percentage and absolute count will include metamyelocytes, myelocytes, and promyelocytes. Blood smears from CBCs yielding IG's will be scanned manually for concordance. If this scan disagrees with the automated IG or if promyelocytes are noted, a manual differential will be performed. Immature Gran Absolute 0.02 0.00 - 0.05 x10(3)/mc L [facility] Blood specimen (specimen) 09/05/2013 3:46 AM EST 09/05/2013 4:03 AM EST Mathew Snell MD HEMATOLOGY ORDERABL ES [facility] * (ABNORMAL) CBC (with Diff) (09/05/2013 3:46 AM EST) White Blood Cell 9.3 4.0 - 10.0 x10(3)/mc L [facility] MILLENNI[facility] Red Blood Cell 3.52(L) 4.63 - 6.08 x10(6)/mc L [facility]ILLENNI[facility] Hemoglobin 10.3(L) 13.7 - 17.5 gm/dL [facility]ILLENNI[facility] Hematocrit 31.8(L) 40.0 - 51.0 % [facility]ILLENNI[facility] Mean Cell Volume 90.3 79.0 - 92.0 fL [facility] MILLENNI[facility] Mean Cell Hemoglobin 29.3 25.6 - 32.2 pg [facility] MILLENNI[facility] Mean Cell Hemoglobin Concentration 32.4 32.0 - 36.5 gm/dL [facility] MILLENNI[facility] Platelet 119(L) 145 - 370 x10(3)/mc L [facility]ILLENNI[facility] RDW Standard Deviation 46.0 35.0 - 46.0 fL [facility] MILLENNIUM RDW coefficient of variation 14.0 10.9 - 14.4 % [facility] MILLENNIUM Mean Platelet Volume 10.3 9.0 - 12.0 fL [facility]ILL[facility] Blood specimen (specimen) 09/05/2013 3:46 AM EST 09/05/2013 4:03 AM EST Narrative Resulting Agency Comment Spec In Lab Mathew Snell MD HEMATOLOGY ORDERABL ES [facility] * (ABNORMAL) Basic Metabolic Panel (non-fasting) (09/05/2013 3:46 AM EST) Glucose 113 60 - 199 mg/dL [facility] Comment:Diabetes: >=200 mg/d L plus symptoms Blood Urea Nitrogen 49(H) 10 - 20 mg/dL [facility] Comment:result rechecked-afp Creatinine 1.64(H) 0.80 - 1.50 mg/dL [facility] Comment: Please note that the pediatric reference intervals supplied above were not validated at [facility]. Results from pediatric patients should be interpreted in conjunction to the patient's age, height and muscle mass. Sodium 139 135 - 145 mmol/L [facility]ILLENNI[facility] Potassium 4.7 3.5 - 5.0 mmol/L [facility]ENNI[facility] Comment: Please note: ??Patients with WBC >100,000 may have falsely elevated Potassium levels. ??For accurate Potassium quantification in these patients send serum separator tube (gold top) for subsequent determinations. ??Contact the Clinical Chemistry Laboratory if there are any questions. Chloride 104 98 - 107 mmol/L [facility] MILLENNI[facility] Carbon Dioxide 28 22 - 31 mmol/L [facility] MILLENNI[facility] Anion Gap 7 5 - 15 mmol/L [facility]ILLENNI[facility] Calcium 8.6 8.5 - 10.5 mg/dL [facility] MILLENNI[facility] Est Glomerular Filtration Rate 42(L) >=60 [facility]ILL[facility]NI[facility] Comment: This estimated GFR [...] the following links into your internet browser. http://www.nkdep.nih.gov/lab-evaluation.shtml http://www.kidney.org/professionals/ Blood specimen (specimen) 09/05/2013 3:46 AM EST 09/05/2013 4:03 AM EST Narrative Resulting Agency Comment Spec In Lab Mathew Snell MD CHEMISTRY ORDERABLE S Performing Organization Address [facility] Phone Number [facility] [employer] * POCT Glucose (09/04/2013 11:52 PM EST) Glucose, POC 141 60 - 199 mg/dL [facility] Comment: Supplemental ranges: <110 mg/dL before meals <200 mg/dL all other times of the day Blood specimen (specimen) 09/04/2013 11:52 PM EST 09/04/2013 11:52 PM EST Mathew Snell MD POINT OF CARE TEST ORDERABLES Performing Organization Address [facility] Phone Number [facility] * POCT Glucose (09/04/2013 8:37 PM EST) Glucose, POC 123 60 - 199 mg/dL [facility] Comment: Supplemental ranges: <110 mg/dL before meals <200 mg/dL all other times of the day Blood specimen (specimen) 09/04/2013 8:37 PM EST 09/04/2013 8:37 PM EST Mathew Snell MD POINT OF CARE TEST ORDERABLES Performing Organization Address [facility] Phone Number [facility] [employer] * POCT Glucose (09/04/2013 5:16 PM EST) Glucose, POC 128 60 - 199 mg/dL [facility] Comment: Supplemental ranges: <110 mg/dL before meals <200 mg/dL all other times of the day Blood specimen (specimen) 09/04/2013 5:16 PM EST 09/04/2013 5:16 PM EST Mathew Snell MD POINT OF CARE TEST ORDERABLES [facility] * XR chest routine PA & lateral (09/04/2013 1:55 PM EST) Anatomical Region Laterality Modality Chest N/A Radiographic Patricia ging 09/04/2013 1:55 PM EST Narrative 09/04/2013 2:55 PM EST Examination CHEST ROUTINE 2 VIEWS Clinical History s/p cabg avr Comparison 09/02/2013. Technique PA and lateral views of the chest. Findings Support and monitoring equipment have been removed. ??No pneumothorax is identified. ??Moderate left pleural effusion with basilar atelectasis, partially obscuring the cardiac silhouette. ??Small right pleural effusion. Mediastinal surgical clips, prosthetic aortic valve, intact median sternotomy wires. ?? Impression Moderate left pleural effusion and basilar atelectasis. Small right pleural effusion. Procedure Note iMtali Cao MD - 09/04/2013 Examination CHEST ROUTINE 2 VIEWS Clinical History s/p cabg avr Comparison 09/02/2013. Technique PA and lateral views of the chest. Findings Support and monitoring equipment have been removed. No pneumothorax is identified. Moderate left pleural effusion with basilar atelectasis,partially obscuring the cardiac silhouette. Small right pleural effusion.Mediastinal surgical clips, prosthetic aortic valve, intact median sternotomy wires. Impression Moderate left pleural effusion and basilar atelectasis. Small rightpleural effusion. Mathew Snell MD IMG DX ORDERABLES * POCT Glucose (09/04/2013 12:25 PM EST) Glucose, POC 150 60 - 199 mg/dL [facility] Comment: Supplemental ranges: <110 mg/dL before meals <200 mg/dL all other times of the day Blood specimen (specimen) 09/04/2013 12:25 PM EST 09/04/2013 12:25 PM EST Mathew Snell MD POINT OF CARE TEST ORDERABLES Performing Organization Address [facility] de Phone Number [facility] * POCT Glucose (09/04/2013 8:11 AM EST) Glucose, POC 134 60 - 199 mg/dL [facility] Comment: Supplemental ranges: <110 mg/dL before meals <200 mg/dL all other times of the day Blood specimen (specimen) 09/04/2013 8:11 AM EST 09/04/2013 8:11 AM EST Mathew Snell MD POINT OF CARE TEST ORDERABLES Performing Organization Address [facility] Phone Number [facility] * POCT Glucose (09/04/2013 6:14 AM EST) Glucose, POC 147 60 - 199 mg/dL [facility] Comment: Supplemental ranges: <110 mg/dL before meals <200 mg/dL all other times of the day Blood specimen (specimen) 09/04/2013 6:14 AM EST 09/04/2013 6:14 AM EST Mathew Snell MD POINT OF CARE TEST ORDERABLES Performing Organization Address [facility] Co de Phone Number [facility] MARTINSI[facility] * POCT Glucose (09/04/2013 4:16 AM EST) Glucose, POC 133 60 - 199 mg/dL [facility] Comment: Supplemental ranges: <110 mg/dL before meals <200 mg/dL all other times of the day Blood specimen (specimen) 09/04/2013 4:16 AM EST 09/04/2013 4:16 AM EST Mathew Snell MD POINT OF CARE TEST ORDERABLES Performing Organization Address [facility] Co de Phone Number [facility] MARTIN[facility] * Potassium (09/04/2013 4:16 AM EST) Potassium 4.1 3.5 - 5.0 mmol/L [facility] Comment: Please note: ??Patients with WBC >100,000 may have falsely elevated Potassium levels. ??For accurate Potassium quantification in these patients send serum separator tube (gold top) for subsequent determinations. ??Contact the Clinical Chemistry Laboratory if there are any questions. Blood specimen (specimen) 09/04/2013 4:16 AM EST 09/04/2013 4:22 AM EST Narrative Resulting Agency Comment Spec In Lab Mathew Snell MD CHEMISTRY ORDERABLE S Performing Organization Address [facility] Phone Number [facility] * POCT Glucose (09/04/2013 2:09 AM EST) Glucose, POC 93 60 - 199 mg/dL [facility] Comment: Supplemental ranges: <110 mg/dL before meals <200 mg/dL all other times of the day Blood specimen (specimen) 09/04/2013 2:09 AM EST 09/04/2013 2:09 AM EST Mathew Snell MD POINT OF CARE TEST ORDERABLES Performing Organization Address [facility] Phone Number [facility] * POCT Glucose (09/04/2013 12:26 AM EST) Glucose, POC 131 60 - 199 mg/dL [facility] Comment: Supplemental ranges: <110 mg/dL before meals <200 mg/dL all other times of the day Blood specimen (specimen) 09/04/2013 12:26 AM EST 09/04/2013 12:26 AM EST Mathew Snell MD POINT OF CARE TEST ORDERABLES Performing Organization Address [facility] Phone Number [facility] * POCT Glucose (09/03/2013 9:19 PM EST) Glucose, POC 119 60 - 199 mg/dL [facility] Comment: Supplemental ranges: <110 mg/dL before meals <200 mg/dL all other times of the day Blood specimen (specimen) 09/03/2013 9:19 PM EST 09/03/2013 9:19 PM EST Mathew Snell MD POINT OF CARE TEST ORDERABLES Performing Organization Address [facility] Phone Number [facility] * POCT Glucose (09/03/2013 5:27 PM EST) Glucose, POC 128 60 - 199 mg/dL [facility] Comment: Supplemental ranges: <110 mg/dL before meals <200 mg/dL all other times of the day Blood specimen (specimen) 09/03/2013 5:27 PM EST 09/03/2013 5:27 PM EST Mathew Snell MD POINT OF CARE TEST ORDERABLES Performing Organization Address [facility] Phone Number [facility] * POCT Glucose (09/03/2013 3:26 PM EST) Glucose, POC 134 60 - 199 mg/dL [facility] Comment: Supplemental ranges: <110 mg/dL before meals <200 mg/dL all other times of the day Blood specimen (specimen) 09/03/2013 3:26 PM EST 09/03/2013 3:26 PM EST Mathew Snell MD POINT OF CARE TEST ORDERABLES Performing Organization Address [facility] Phone Number [facility] * POCT Glucose (09/03/2013 2:22 PM EST) Glucose, POC 127 60 - 199 mg/dL [facility] Comment: Supplemental ranges: <110 mg/dL before meals <200 mg/dL all other times of the day Blood specimen (specimen) 09/03/2013 2:22 PM EST 09/03/2013 2:22 PM EST Mathew Snell MD POINT OF CARE TEST ORDERABLES Performing Organization Address [facility] de Phone Number [facility] * Potassium (09/03/2013 2:05 PM EST) Potassium 4.1 3.5 - 5.0 mmol/L [facility] Comment: Please note: ??Patients with WBC >100,000 may have falsely elevated Potassium levels. ??For accurate Potassium quantification in these patients send serum separator tube (gold top) for subsequent determinations. ??Contact the Clinical Chemistry Laboratory if there are any questions. Blood specimen (specimen) 09/03/2013 2:05 PM EST 09/03/2013 2:40 PM EST Narrative Resulting Agency Comment Spec In Lab Mathew Snell MD CHEMISTRY ORDERABLE S Performing Organization Address [facility] de Phone Number [facility] * POCT Glucose (09/03/2013 11:48 AM EST) Glucose, POC 113 60 - 199 mg/dL [facility] Comment: Supplemental ranges: <110 mg/dL before meals <200 mg/dL all other times of the day Blood specimen (specimen) 09/03/2013 11:48 AM EST 09/03/2013 11:48 AM EST Mathew Snell MD POINT OF CARE TEST ORDERABLES Performing Organization Address [facility] de Phone Number [facility] * POCT Glucose (09/03/2013 10:42 AM EST) Glucose, POC 125 60 - 199 mg/dL [facility] Comment: Supplemental ranges: <110 mg/dL before meals <200 mg/dL all other times of the day Blood specimen (specimen) 09/03/2013 10:42 AM EST 09/03/2013 10:42 AM EST Mathew Snell MD POINT OF CARE TEST ORDERABLES Performing Organization Address [facility] Co de Phone Number [facility] * POCT Glucose (09/03/2013 7:44 AM EST) Glucose, POC 141 60 - 199 mg/dL [facility] Comment: Supplemental ranges: <110 mg/dL before meals <200 mg/dL all other times of the day Blood specimen (specimen) 09/03/2013 7:44 AM EST 09/03/2013 7:44 AM EST Mathew Snell MD POINT OF CARE TEST ORDERABLES Performing Organization Address [facility] de Phone Number [facility] * POCT Glucose (09/03/2013 6:04 AM EST) Glucose, POC 137 60 - 199 mg/dL [facility] Comment: Supplemental ranges: <110 mg/dL before meals <200 mg/dL all other times of the day Blood specimen (specimen) 09/03/2013 6:04 AM EST 09/03/2013 6:04 AM EST Mathew Snell MD POINT OF CARE TEST ORDERABLES Performing Organization Address [facility] Phone Number [facility] * POCT Glucose (09/03/2013 4:11 AM EST) Glucose, POC 153 60 - 199 mg/dL [facility] Comment: Supplemental ranges: <110 mg/dL before meals <200 mg/dL all other times of the day Blood specimen (specimen) 09/03/2013 4:11 AM EST 09/03/2013 4:11 AM EST Mathew Snell MD POINT OF CARE TEST ORDERABLES Performing Organization Address [facility] de Phone Number [facility] * (ABNORMAL) Differential, Automated (09/03/2013 4:00 AM EST) Neutrophil % 83.3(H) 34.0 - 71.0 % [facility] Neutrophil Absolute 6.20 1.50 - 6.30 x10(3)/mc L [facility] Lymph % 7.9(L) 19.0 - 53.0 % CERNER MILLENNIUM Lymphocytes Abs 0.6(L) 1.0 - 3.6 x10(3)/mc L CERNER MILLENNIUM Monocyte % 8.3 4.0 - 13.0 % CERNER MILLENNIUM Monocyte Abs 0.6 0.2 - 1.0 x10(3)/mc L CERNER MILLENNIUM Eos % 0.1 0.0 - 7.0 % CERNER MILLENNIUM Eosinophils Abs 0.0 0.0 - 0.5 x10(3)/mc L CERNER MILLENNIUM Basophil % 0.1 0.0 - 2.0 % CERNER MILLENNIUM Baso Absolute 0.0 0.0 - 0.2 x10(3)/mc L CERNER MILLENNIUM Immature Gran % 0.30 0.00 - 0.66 % CERNER MILLENNIUM Comment: Immature granulocytes(IG's)percentage and absolute count will include metamyelocytes, myelocytes, and promyelocytes. Blood smears from CBCs yielding IG's will be scanned manually for concordance. If this scan disagrees with the automated IG or if promyelocytes are noted, a manual differential will be performed. Immature Gran Absolute 0.02 0.00 - 0.05 x10(3)/mc L CERNER MILLENNIUM Blood specimen (specimen) 09/03/2013 4:00 AM EST 09/03/2013 4:20 AM EST Mathew Snell MD HEMATOLOGY ORDERABL ES [facility] * (ABNORMAL) Cardiac Enzymes (09/03/2013 4:00 AM EST) Troponin-T 1.16(H) <=0.03 ng/mL CERNER MILLENNIUM Comment: 0.03 ng/mL: Represents the 99th percentile upper reference limit for normals. >0.03 ng/mL: Elevated cardiac troponin T level indicative of myocardial damage. Diagnosis of acute, evolving or recent IL requires a typical rise and gradual fall of cTnT with at least ONE of the following: a) Ischemic symptoms b) Development of pathologic Q waves on the ECG c) ECG changes indicative of eschemia (S-T segment elevation/depression) d) Coronary artery intervention Serial bloods should be obtained for testing on admission, at 6 to 9 hrs and again at 12 to 24 hrs if earlier samples are negative and the clinical index of suspicion is high. Reference: [Myocardial infarction redefined? a consensus document of the Joint Society of Cardiology/[place] [employer] Committee for the redefinition of myocardial infarction. ??Journal of the [place] [employer]iology 2000; 36: 959-969] Creatine Kinase 655(H) 0 - 200 unit/L [facility] Blood specimen (specimen) 09/03/2013 4:00 AM EST 09/03/2013 4:20 AM EST Narrative Resulting Agency Comment Spec In Lab Mathew Snell MD CHEMISTRY ORDERABLE S Performing Organization Address [facility] de Phone Number [facility] * Potassium (09/03/2013 4:00 AM EST) Potassium 3.8 3.5 - 5.0 mmol/L [facility] Comment: Please note: ??Patients with WBC >100,000 may have falsely elevated Potassium levels. ??For accurate Potassium quantification in these patients send serum separator tube (gold top) for subsequent determinations. ??Contact the Clinical Chemistry Laboratory if there are any questions. Blood specimen (specimen) 09/03/2013 4:00 AM EST 09/03/2013 4:20 AM EST Narrative Resulting Agency Comment Spec In Lab Mathew Snell MD CHEMISTRY ORDERABLE S Performing Organization Address [facility] de Phone Number [facility] * (ABNORMAL) Glucose, fasting (09/03/2013 4:00 AM EST) Glucose Fasting 153(H) 65 - 99 mg/dL [facility] Comment: ?Fasting* Glucose Interpretive Criteria Normal ?65-99 mg/dL Impaired Fasting glucose ?100-125 mg/dL Consistent with Diabetes Mellitus ? >or= 126 mg/dL *Fasting is defined as no caloric intake for at least 8 hours In the absence of unequivocal hyperglycemia a plasma glucose value of >or= 126 mg/dL should be repeated on a subsequent day. Diagnosis and Classification of Diabetes Mellitus, Position Statement from the [place] Diabetes Association. ??Diabetes Care, Volume 33, Supplement 1, Sep 2009 Blood specimen (specimen) 09/03/2013 4:00 AM EST 09/03/2013 4:20 AM EST Narrative Resulting Agency Comment Spec In Lab Mathew Snell MD CHEMISTRY ORDERABLE S Performing Organization Address [facility] de Phone Number [employer] * Creatinine (09/03/2013 4:00 AM EST) [facility] Creatinine 1.04 0.80 - 1.50 mg/dL [facility] Comment: Please note that the pediatric reference intervals supplied above were not validated at [facility]. Results from pediatric patients should be interpreted in conjunction to the patient's age, height and muscle mass. Est Glomerular Filtration Rate >60 >=60 [facility] Comment: This estimated GFR (eGFR) value was [...] the following links into your internet browser. http://www.nkdep.nih.gov/lab-evaluation.shtml http://www.kidney.org/professionals/ Blood specimen (specimen) 09/03/2013 4:00 AM EST 09/03/2013 4:20 AM EST Narrative Resulting Agency Comment Spec In Lab Mathew Snell MD CHEMISTRY ORDERABLE S Performing Organization Address [facility] Co de Phone Number MARCY [facility]Picker * BUN (09/03/2013 4:00 AM EST) Blood Urea Nitrogen 16 10 - 20 mg/dL CERNER MILLENNIUM Blood specimen (specimen) 09/03/2013 4:00 AM EST 09/03/2013 4:20 AM EST Narrative Resulting Agency Comment Spec In Lab Mathew Snell MD CHEMISTRY ORDERABLE S MARCY MILLENNIUM * (ABNORMAL) CBC (with Diff) (09/03/2013 4:00 AM EST) White Blood Cell 7.4 4.0 - 10.0 x10(3)/mc L CERNER MILLENNIUM Red Blood Cell 3.89(L) 4.63 - 6.08 x10(6)/mc L CERNER MILLENNIUM Hemoglobin 11.3(L) 13.7 - 17.5 gm/dL CERNER MILLENNIUM Hematocrit 34.1(L) 40.0 - 51.0 % CERNER MILLENNIUM Mean Cell Volume 87.7 79.0 - 92.0 fL CERNER MILLENNIUM Mean Cell Hemoglobin 29.0 25.6 - 32.2 pg CERNER MILLENNIUM Mean Cell Hemoglobin Concentration 33.1 32.0 - 36.5 gm/dL CERNER MILLENNIUM Platelet 121(L) 145 - 370 x10(3)/mc L CERNER MILLENNIUM RDW Standard Deviation 43.2 35.0 - 46.0 fL CERNER MILLENNIUM RDW coefficient of variation 13.6 10.9 - 14.4 % CERNER MILLENNIUM Mean Platelet Volume 9.6 9.0 - 12.0 fL CERNER MILLENNIUM Blood specimen (specimen) 09/03/2013 4:00 AM EST 09/03/2013 4:20 AM EST Narrative Resulting Agency Comment Spec In Lab Mathew Snell MD HEMATOLOGY ORDERABL ES MARCY MONZONENNIUM * (ABNORMAL) BLOOD GAS 2 ARTERIAL (09/03/2013 2:03 AM EST) pH, Arterial 7.37 CERNER MILLENNIUM PCO2, Arterial 47(H) mmHg CERNE R MILLENNIUM PO2, Arterial 70(L) mmHg CERNER MILLENNIUM Bicarbonate, Arterial 26.1(H) mmol/L CERNER MILLENNIUM Base Excess, Arterial 0.8 mmol/L CERNER MILLENNIUM Hgb Blood Gas 12.1(L) gm/dL CERNER MILLENNIUM Comment: Total Hemoglobin (in gm/dL) ?Based on [facility] Hematology ranges: ?Age ?Reference Range Less than 3 days ?14.5 to 22.5 3 days to 2 weeks ? 12.5 to 20.5 2 weeks to 1 month ?10.0 to 18.0 1 to 6 months ?9.4 to 14.0 6 months to 2 years ? 10.5 to 13.5 2 to 6 years ?11.5 to 13.5 6 to 12 years ? 11.5 to 15.5 12 to 18 years (female) 12.0 to 16.0 ? (male) ?? 13.0 to 16.0 > 18 years ? (female) 11.2 to 15.7 ? (male) ?? 13.7 to 17.5 Oxyhemoglobin, Arterial 92.0(L) % CERNER MILLENNIUM Carboxyhemoglob in, Arterial 0.5 % CERNER MILLENNIUM Comment: Nonsmokers: 0.5-1.5% COHB Smokers: Variable, but usually less than 10% Toxic: 20-30% COHB Lethal: Greater than 60% COHB Methemoglobin, Arterial 0.3 % CERNER MILLENNIUM Na Whole Blood 139 mmol/L CERNE R MILLENNIUM K Whole Blood 3.9 mmol/L CERNER MILLENNIUM Comment: Please note: Patients with WBC >100,000 may have falsely elevated Potassium levels. Contact the Clinical Chemistry Laboratory if there are any questions. ICa Whole Blood 1.13(L) mmol/L CERN ER MILLENNIUM Comment: Reference Ranges: ?? < 19 yrs: 1.22 - 1.37 mmol/L ? Adults: 1.15 - 1.33 mmol/L Note: ??Total bilirubin higher than 20 mg/dL may lead to falsely low ionized calcium. CL Whole Blood 110(H) mmol/L CERNE R MILLENNIUM Gluc Whole Bld 146 mg/dL CERNE R MILLENNIUM Comment:Diabetes: >=200 mg/d L plus symptoms. FIO2 Art 40 % CERNER MILLENNIUM PF Ratio Art 175 CERNER MILLENNIUM Temp Art 36.9 Celsius CERNER MILLENNIUM Blood specimen (specimen) 09/03/2013 2:03 AM EST 09/03/2013 2:03 AM EST Mathew Snell MD POINT OF CARE TEST ORDERABLES Performing Organization Address [facility] de Phone Number [facility] * POCT Glucose (09/03/2013 12:58 AM EST) Glucose, POC 110 60 - 199 mg/dL [facility] Comment: Supplemental ranges: <110 mg/dL before meals <200 mg/dL all other times of the day Blood specimen (specimen) 09/03/2013 12:58 AM EST 09/03/2013 12:58 AM EST Mathew Snell MD POINT OF CARE TEST ORDERABLES Performing Organization Address [facility] de Phone Number [facility] * POCT Glucose (09/03/2013 12:09 AM EST) Glucose, POC 109 60 - 199 mg/dL [facility] Comment: Supplemental ranges: <110 mg/dL before meals <200 mg/dL all other times of the day Blood specimen (specimen) 09/03/2013 12:09 AM EST 09/03/2013 12:09 AM EST Mathew Snell MD POINT OF CARE TEST ORDERABLES Performing Organization Address [facility] de Phone Number [facility] * POCT Glucose (09/02/2013 11:12 PM EST) Glucose, POC 128 60 - 199 mg/dL [facility] Comment: Supplemental ranges: <110 mg/dL before meals <200 mg/dL all other times of the day Blood specimen (specimen) 09/02/2013 11:12 PM EST 09/02/2013 11:12 PM EST Mathew Snell MD POINT OF CARE TEST ORDERABLES Performing Organization Address [facility] Co de Phone Number [facility] * (ABNORMAL) Hemoglobin (09/02/2013 11:00 PM EST) Pathologist [facility] Hemoglobin 12.2(L) 13.7 - 17.5 gm/dL [facility] Comment: Called by: [facility], Read back by: STEVE FIGUEROA, Date-Time: 09-02-13 23:45 LAST HGB WAS WHEN PATIENT WAS IN THE OR. NURSE CHRISTOPH SHARP TO ENTER. Called by: [facility], Read back by: STEVE FIGUEROA, Date-Time: 09-02-13. LAST HGB WAS WHEN PATIENT WAS IN THE OR. NURSE CHRISTOPH SHARP TO ENTER. Corrected from 12.2 gm/dL [LOW] on 09/02/13 11:47 by Valorie Bower Blood specimen (specimen) 09/02/2013 11:00 PM EST 09/02/2013 11:20 PM EST Narrative Resulting Agency Comment Spec In Lab Mathew Snell MD HEMATOLOGY ORDERABL ES Performing Organization Address [facility] Co de Phone Number [facility] * Potassium (09/02/2013 11:00 PM EST) Potassium 3.7 3.5 - 5.0 mmol/L [facility] Comment: Please note: ??Patients with WBC >100,000 may have falsely elevated Potassium levels. ??For accurate Potassium quantification in these patients send serum separator tube (gold top) for subsequent determinations. ??Contact the Clinical Chemistry Laboratory if there are any questions. Blood specimen (specimen) 09/02/2013 11:00 PM EST 09/02/2013 11:20 PM EST Narrative Resulting Agency Comment Spec In Lab Mathwe Snell MD CHEMISTRY ORDERABLE S Performing Organization Address [facility] Co de Phone Number [facility] * POCT Glucose (09/02/2013 10:01 PM EST) Glucose, POC 125 60 - 199 mg/dL [facility] Comment: Supplemental ranges: <110 mg/dL before meals <200 mg/dL all other times of the day Blood specimen (specimen) 09/02/2013 10:01 PM EST 09/02/2013 10:01 PM EST Mathew Snell MD POINT OF CARE TEST ORDERABLES Performing Organization Address [facility] Co de Phone Number [facility] * XR chest PA or AP- 1 view (09/02/2013 7:43 PM EST) Anatomical Region Laterality Modality Chest N/A Radiographic Patricia ging 09/02/2013 7:43 PM EST Narrative 09/03/2013 8:46 AM EST Examination CHEST AP/XPORT Clinical History ETT and [place] placement Comparison Chest radiograph 06/29/2008. Technique Portable AP 80 degree upright radiograph of the chest. Findings The tip of the endotracheal tube projects at the left thoracic inlet. ??There are new median sternotomy wires and a prosthetic aortic valve as well as mediastinal vascular clips. ??Pulmonary arterial catheter is seen, likely coiled within and terminating in the main pulmonary artery. Mediastinal drain projects with its tip over the thoracic inlet. Left base airspace opacity likely reflects subsegmental atelectasis and pleural effusion. ??Central pulmonary vasculature is indistinct compatible with vascular congestion. Impression ? 1. Endotracheal tube is in appropriate position. ? 2. Pulmonary arterial catheter loops within the main pulmonary artery. ?? This is of uncertain clinical significance. ? 3. Left base atelectasis and small pleural effusion. Procedure Note Yann Cali MD - 09/03/2013 Examination CHEST AP/XPORT Clinical History ETT and [place] placement Comparison Chest radiograph 06/29/2008. Technique Portable AP 80 degree upright radiograph of the chest. Findings The tip of the endotracheal tube projects at the left thoracic inlet.There are new median sternotomy wires and a prosthetic aortic valve as well as mediastinal vascular clips. Pulmonary arterial catheter is seen, likelycoiled within and terminating in the main pulmonary artery. Mediastinal drainprojects with its tip over the thoracic inlet. Left base airspace opacity likely reflects subsegmental atelectasis and pleural effusion. Central pulmonary vasculature is indistinct compatible with vascular congestion. Impression 1. Endotracheal tube is in appropriate position. 2. Pulmonary arterial catheter loops within the main pulmonaryartery. This is of uncertain clinical significance. 3. Left base atelectasis and small pleural effusion. Mathew Snell MD IMG DX ORDERABLES * (ABNORMAL) BLOOD GAS 2 ARTERIAL (09/02/2013 7:26 PM EST) pH, Arterial 7.36 7.35 - 7.45 CERNER MILLENNIUM PCO2, Arterial 46(H) 35 - 45 mmHg CERNER MILLENNIUM PO2, Arterial 150(H) 85 - 104 mmHg CERNER MILLENNIUM Bicarbonate, Arterial 25.4 20.0 - 26.0 mmol/L CERNER MILLENNIUM Base Excess, Arterial -0.1 -3.0 - 3.0 mmol/L CERNER MILLENNIUM Hgb Blood Gas 12.9(L) 13.7 - 17.5 gm/dL CERNER MILLENNIUM Comment: Total Hemoglobin (in gm/dL) ?Based on [facility] Hematology ranges: ?Age ?Reference Range Less than 3 days ?14.5 to 22.5 3 days to 2 weeks ? 12.5 to 20.5 2 weeks to 1 month ?10.0 to 18.0 1 to 6 months ?9.4 to 14.0 6 months to 2 years ? 10.5 to 13.5 2 to 6 years ?11.5 to 13.5 6 to 12 years ? 11.5 to 15.5 12 to 18 years (female) 12.0 to 16.0 ? (male) ?? 13.0 to 16.0 > 18 years ? (female) 11.2 to 15.7 ? (male) ?? 13.7 to 17.5 Oxyhemoglobin, Arterial 98.0(H) 94.0 - 97.0 % CERNER MILLENNIUM Carboxyhemoglob in, Arterial 0.5 % CERNER MILLENNIUM Comment: Nonsmokers: 0.5-1.5% COHB Smokers: Variable, but usually less than 10% Toxic: 20-30% COHB Lethal: Greater than 60% COHB Methemoglobin, Arterial 0.3 <=1.5 % CERNER MILLENNIUM Na Whole Blood 134(L) 135 - 145 mmol/L CERNER MILLENNIUM K Whole Blood 3.8 3.5 - 5.0 mmol/L CERNER MILLENNIUM Comment: Please note: Patients with WBC >100,000 may have falsely elevated Potassium levels. Contact the Clinical Chemistry Laboratory if there are any questions. ICa Whole Blood 1.13(L) 1.15 - 1.33 mmol/L CERNER MILLENNIUM Comment: Reference Ranges: ?? < 19 yrs: 1.22 - 1.37 mmol/L ? Adults: 1.15 - 1.33 mmol/L Note: ??Total bilirubin higher than 20 mg/dL may lead to falsely low ionized calcium. CL Whole Blood 105 98 - 107 mmol/L CERNER MILLENNIUM Gluc Whole Bld 178 60 - 199 mg/dL CERNER MILLENNIUM Comment:Diabetes: >=200 mg/d L plus symptoms. FIO2 Art 100 % CERNER MILLENNIUM PF Ratio Art 150 CERNER MILLENNIUM Blood specimen (specimen) 09/02/2013 7:26 PM EST 09/02/2013 9:47 PM EST Narrative Resulting Agency Comment Spec In Lab Michael NGUYEN POINT OF CAR E TEST ORDERABLES CERNER MILLENNIUM * (ABNORMAL) BLOOD GAS 2 ARTERIAL (09/02/2013 6:02 PM EST) pH, Arterial 7.33(L) 7.35 - 7.45 CERNER MILLENNIUM PCO2, Arterial 48(H) 35 - 45 mmHg CERNER MILLENNIUM PO2, Arterial 202(H) 85 - 104 mmHg CERNER MILLENNIUM Bicarbonate, Arterial 24.6 20.0 - 26.0 mmol/L CERNER MILLENNIUM Base Excess, Arterial -1.3 -3.0 - 3.0 mmol/L CERNER MILLENNIUM Hgb Blood Gas 9.1(L) 13.7 - 17.5 gm/dL CERNER MILLENNIUM Comment: Total Hemoglobin (in gm/dL) ?Based on [facility] Hematology ranges: ?Age ?Reference Range Less than 3 days ?14.5 to 22.5 3 days to 2 weeks ? 12.5 to 20.5 2 weeks to 1 month ?10.0 to 18.0 1 to 6 months ?9.4 to 14.0 6 months to 2 years ? 10.5 to 13.5 2 to 6 years ?11.5 to 13.5 6 to 12 years ? 11.5 to 15.5 12 to 18 years (female) 12.0 to 16.0 ? (male) ?? 13.0 to 16.0 > 18 years ? (female) 11.2 to 15.7 ? (male) ?? 13.7 to 17.5 Oxyhemoglobin, Arterial 98.0(H) 94.0 - 97.0 % CERNER MILLENNIUM Carboxyhemoglob in, Arterial 0.8 % CERNER MILLENNIUM Comment: Nonsmokers: 0.5-1.5% COHB Smokers: Variable, but usually less than 10% Toxic: 20-30% COHB Lethal: Greater than 60% COHB Methemoglobin, Arterial 0.4 <=1.5 % CERNER MILLENNIUM Na Whole Blood 130(L) 135 - 145 mmol/L CERNER MILLENNIUM K Whole Blood 3.9 3.5 - 5.0 mmol/L CERNER MILLENNIUM Comment: Please note: Patients with WBC >100,000 may have falsely elevated Potassium levels. Contact the Clinical Chemistry Laboratory if there are any questions. ICa Whole Blood 1.09(L) 1.15 - 1.33 mmol/L CERNER MILLENNIUM Comment: Reference Ranges: ?? < 19 yrs: 1.22 - 1.37 mmol/L ? Adults: 1.15 - 1.33 mmol/L Note: ??Total bilirubin higher than 20 mg/dL may lead to falsely low ionized calcium. CL Whole Blood 103 98 - 107 mmol/L CERNER MILLENNIUM Gluc Whole Bld 221(H) 60 - 199 mg/dL CERNER MILLENNIUM Comment:Diabetes: >=200 mg/d L plus symptoms. Blood specimen (specimen) 09/02/2013 6:02 PM EST 09/02/2013 9:55 PM EST Narrative Resulting Agency Comment Spec In Lab Mathew Snell MD POINT OF CARE TEST ORDERABLES CERNER MILLENNIUM * (ABNORMAL) Differential, Automated (09/02/2013 6:00 PM EST) Neutrophil % 85.2(H) 34.0 - 71.0 % CERNER MILLENNIUM Neutrophil Absolute 8.63(H) 1.50 - 6.30 x10(3)/mc L CERNER MILLENNIUM Lymph % 11.9(L) 19.0 - 53.0 % CERNER MILLENNIUM Lymphocytes Abs 1.2 1.0 - 3.6 x10(3)/mc L CERNER MILLENNIUM Monocyte % 1.8(L) 4.0 - 13.0 % CERNER MILLENNIUM Monocyte Abs 0.2 0.2 - 1.0 x10(3)/mc L CERNER MILLENNIUM Eos % 0.7 0.0 - 7.0 % CERNER MILLENNIUM Eosinophils Abs 0.1 0.0 - 0.5 x10(3)/mc L CERNER MILLENNIUM Basophil % 0.1 0.0 - 2.0 % CERNER MILLENNIUM Baso Absolute 0.0 0.0 - 0.2 x10(3)/mc L CERNER MILLENNIUM Immature Gran % 0.30 0.00 - 0.66 % CERNER MILLENNIUM Comment: Immature granulocytes(IG's)percentage and absolute count will include metamyelocytes, myelocytes, and promyelocytes. Blood smears from CBCs yielding IG's will be scanned manually for concordance. If this scan disagrees with the automated IG or if promyelocytes are noted, a manual differential will be performed. Immature Gran Absolute 0.03 0.00 - 0.05 x10(3)/mc L CERNER MILLENNIUM Blood specimen (specimen) 09/02/2013 6:00 PM EST 09/02/2013 6:11 PM EST Mathew Snell MD HEMATOLOGY ORDERABL ES Performing Organization Address [facility] de Phone Number MARCY MARTINSIUM * (ABNORMAL) Thrombin time (09/02/2013 6:00 PM EST) Thrombin Time 24(H) 15 - 20 sec CERNER NAENNIUM Blood specimen (specimen) 09/02/2013 6:00 PM EST 09/02/2013 6:12 PM EST Narrative Resulting Agency Comment Spec In Lab Mathew Snell MD HEMATOLOGY ORDERABL ES Performing Organization Address [facility] de Phone Number MARCY MARTINSIUM * (ABNORMAL) Fibrinogen (09/02/2013 6:00 PM EST) Fibrinogen 153(L) 175 - 450 mg/dL CERNER MILLENNIUM Blood specimen (specimen) 09/02/2013 6:00 PM EST 09/02/2013 6:12 PM EST Narrative Resulting Agency Comment Spec In Lab Mathew Snell MD HEMATOLOGY ORDERABL ES Performing Organization Address [facility]/ZIP Co de Phone Number CERNER MILLENNIUM * APTT (09/02/2013 6:00 PM EST) Partial Thromboplastin Time 34 25 - 35 sec CERNER MILLENNIUM Comment: Called by: ADELE, Read back by: MANDEEP LU, Date/Time:_09/02/13 18:35. Recommended therapeutic PTT range for full dose unfractionated heparin is 80-114 seconds. Blood specimen (specimen) 09/02/2013 6:00 PM EST 09/02/2013 6:12 PM EST Narrative Resulting Agency Comment Spec In Lab Mathew Snell MD HEMATOLOGY ORDERABL ES Performing Organization Address [facility] de Phone Number MARCY FINCH * (ABNORMAL) Prothrombin Time (09/02/2013 6:00 PM EST) Prothrombin Time 19.5(H) 12.0 - 15.0 sec CERWES MILLENNIUM Comment: [facility] Transfusion Committee Guidelines: INR less than 2.0, PTT less than OR equal to 43.5 seconds, or Fibrinogen greater than or equal to 100 mg/dl indicate adequate procoagulant activity for hemostasis in patients without underlying bleeding disorders. International Normalization Ratio 1.6(H) 0.9 - 1.1 CERWES MILLENNIUM Blood specimen (specimen) 09/02/2013 6:00 PM EST 09/02/2013 6:12 PM EST Narrative Resulting Agency Comment Spec In Lab Mathew Snell MD HEMATOLOGY ORDERABL ES Performing Organization Address [facility] Co de Phone Number MARCY FINCH * (ABNORMAL) CBC (with Diff) (09/02/2013 6:00 PM EST) White Blood Cell 10.1(H) 4.0 - 10.0 x10(3)/mc L CERNER MILLENNIUM Red Blood Cell 2.90(L) 4.63 - 6.08 x10(6)/mc L CERNER MILLENNIUM Hemoglobin 8.5(L) 13.7 - 17.5 gm/dL CERNER MILLENNIUM Hematocrit 25.8(L) 40.0 - 51.0 % CERNER MILLENNIUM Mean Cell Volume 89.0 79.0 - 92.0 fL CERNER MILLENNIUM Mean Cell Hemoglobin 29.3 25.6 - 32.2 pg CERNER MILLENNIUM Mean Cell Hemoglobin Concentration 32.9 32.0 - 36.5 gm/dL CERNER MILLENNIUM Platelet 111(L) 145 - 370 x10(3)/mc L CERNER MILLENNIUM RDW Standard Deviation 42.7 35.0 - 46.0 fL CERNER MILLENNIUM RDW coefficient of variation 13.2 10.9 - 14.4 % CERNER MILLENNIUM Mean Platelet Volume 9.4 9.0 - 12.0 fL CERNER MILLENNIUM Blood specimen (specimen) 09/02/2013 6:00 PM EST 09/02/2013 6:11 PM EST Narrative Resulting Agency Comment Spec In Lab Mathew Snell MD HEMATOLOGY ORDERABL ES CERNER MILLENNIUM * (ABNORMAL) BLOOD GAS 2 ARTERIAL (09/02/2013 5:30 PM EST) pH, Arterial 7.38 CERNER MILLENNIUM PCO2, Arterial 44 mmHg CERNE R MILLENNIUM PO2, Arterial 473(H) mmHg CERNER MILLENNIUM Bicarbonate, Arterial 25.0 mmol/L CERNER MILLENNIUM Base Excess, Arterial -0.2 mmol/L CERNER MILLENNIUM Hgb Blood Gas 8.2(L) gm/dL CERNER MILLENNIUM Comment: Total Hemoglobin (in gm/dL) ?Based on [facility] Hematology ranges: ?Age ?Reference Range Less than 3 days ?14.5 to 22.5 3 days to 2 weeks ? 12.5 to 20.5 2 weeks to 1 month ?10.0 to 18.0 1 to 6 months ?9.4 to 14.0 6 months to 2 years ? 10.5 to 13.5 2 to 6 years ?11.5 to 13.5 6 to 12 years ? 11.5 to 15.5 12 to 18 years (female) 12.0 to 16.0 ? (male) ?? 13.0 to 16.0 > 18 years ? (female) 11.2 to 15.7 ? (male) ?? 13.7 to 17.5 Oxyhemoglobin, Arterial 98.1(H) % CERNER MILLENNIUM Carboxyhemoglob in, Arterial 1.1 % CERNER MILLENNIUM Comment: Nonsmokers: 0.5-1.5% COHB Smokers: Variable, but usually less than 10% Toxic: 20-30% COHB Lethal: Greater than 60% COHB Methemoglobin, Arterial 0.5 % CERNER MILLENNIUM Na Whole Blood 126(L) mmol/L CERNE R MILLENNIUM K Whole Blood 4.5 mmol/L CERNER MILLENNIUM Comment: Please note: Patients with WBC >100,000 may have falsely elevated Potassium levels. Contact the Clinical Chemistry Laboratory if there are any questions. ICa Whole Blood 1.24 mmol/L CERN ER MILLENNIUM Comment: Reference Ranges: ?? < 19 yrs: 1.22 - 1.37 mmol/L ? Adults: 1.15 - 1.33 mmol/L Note: ??Total bilirubin higher than 20 mg/dL may lead to falsely low ionized calcium. CL Whole Blood 102 mmol/L CERNE R MILLENNIUM Gluc Whole Bld 265(H) mg/dL CERNE R MILLENNIUM Comment:Diabetes: >=200 mg/d L plus symptoms. Blood specimen (specimen) 09/02/2013 5:30 PM EST 09/02/2013 5:30 PM EST Mathew Snell MD POINT OF CARE TEST ORDERABLES CERWES NASHAN * (ABNORMAL) BLOOD GAS 2 ARTERIAL (09/02/2013 5:00 PM EST) pH, Arterial 7.34(L) CERNER MILLENNIUM PCO2, Arterial 50(H) mmHg CERNE R MILLENNIUM PO2, Arterial 451(H) mmHg CERNER MILLENNIUM Bicarbonate, Arterial 26.4(H) mmol/L CERNER MILLENNIUM Base Excess, Arterial 0.5 mmol/L CERNER MILLENNIUM Hgb Blood Gas 8.9(L) gm/dL CERNER MILLENNIUM Comment: Total Hemoglobin (in gm/dL) ?Based on [facility] Hematology ranges: ?Age ?Reference Range Less than 3 days ?14.5 to 22.5 3 days to 2 weeks ? 12.5 to 20.5 2 weeks to 1 month ?10.0 to 18.0 1 to 6 months ?9.4 to 14.0 6 months to 2 years ? 10.5 to 13.5 2 to 6 years ?11.5 to 13.5 6 to 12 years ? 11.5 to 15.5 12 to 18 years (female) 12.0 to 16.0 ? (male) ?? 13.0 to 16.0 > 18 years ? (female) 11.2 to 15.7 ? (male) ?? 13.7 to 17.5 Oxyhemoglobin, Arterial 98.5(H) % CERNER MILLENNIUM Carboxyhemoglob in, Arterial 0.9 % CERNER MILLENNIUM Comment: Nonsmokers: 0.5-1.5% COHB Smokers: Variable, but usually less than 10% Toxic: 20-30% COHB Lethal: Greater than 60% COHB Methemoglobin, Arterial 0.3 % CERNER MILLENNIUM Na Whole Blood 129(L) mmol/L CERNE R MILLENNIUM K Whole Blood 4.7 mmol/L CERNER MILLENNIUM Comment: Please note: Patients with WBC >100,000 may have falsely elevated Potassium levels. Contact the Clinical Chemistry Laboratory if there are any questions. ICa Whole Blood 0.97(L) mmol/L CERN ER MILLENNIUM Comment: Reference Ranges: ?? < 19 yrs: 1.22 - 1.37 mmol/L ? Adults: 1.15 - 1.33 mmol/L Note: ??Total bilirubin higher than 20 mg/dL may lead to falsely low ionized calcium. CL Whole Blood 103 mmol/L CERNE R MILLENNIUM Gluc Whole Bld 217(H) mg/dL CERNE R MILLENNIUM Comment:Diabetes: >=200 mg/d L plus symptoms. Blood specimen (specimen) 09/02/2013 5:00 PM EST 09/02/2013 5:00 PM EST Mathew Snell MD POINT OF CARE TEST ORDERABLES CERNER MILLENNIUM * (ABNORMAL) BLOOD GAS 2 ARTERIAL (09/02/2013 4:32 PM EST) pH, Arterial 7.35(L) CERNER MILLENNIUM PCO2, Arterial 50(H) mmHg CERNE R MILLENNIUM PO2, Arterial 325(H) mmHg CERNER MILLENNIUM Bicarbonate, Arterial 26.9(H) mmol/L CERNER MILLENNIUM Base Excess, Arterial 1.3 mmol/L CERNER MILLENNIUM Hgb Blood Gas 8.9(L) gm/dL CERNER MILLENNIUM Comment: Total Hemoglobin (in gm/dL) ?Based on [facility] Hematology ranges: ?Age ?Reference Range Less than 3 days ?14.5 to 22.5 3 days to 2 weeks ? 12.5 to 20.5 2 weeks to 1 month ?10.0 to 18.0 1 to 6 months ?9.4 to 14.0 6 months to 2 years ? 10.5 to 13.5 2 to 6 years ?11.5 to 13.5 6 to 12 years ? 11.5 to 15.5 12 to 18 years (female) 12.0 to 16.0 ? (male) ?? 13.0 to 16.0 > 18 years ? (female) 11.2 to 15.7 ? (male) ?? 13.7 to 17.5 Oxyhemoglobin, Arterial 98.7(H) % CERNER MILLENNIUM Carboxyhemoglob in, Arterial 0.2 % CERNER MILLENNIUM Comment: Nonsmokers: 0.5-1.5% COHB Smokers: Variable, but usually less than 10% Toxic: 20-30% COHB Lethal: Greater than 60% COHB Methemoglobin, Arterial 0.3 % CERNER MILLENNIUM Na Whole Blood 132(L) mmol/L CERNE R MILLENNIUM K Whole Blood 5.0 mmol/L CERNER MILLENNIUM Comment: Please note: Patients with WBC >100,000 may have falsely elevated Potassium levels. Contact the Clinical Chemistry Laboratory if there are any questions. ICa Whole Blood 0.95(L) mmol/L CERN ER MILLENNIUM Comment: Reference Ranges: ?? < 19 yrs: 1.22 - 1.37 mmol/L ? Adults: 1.15 - 1.33 mmol/L Note: ??Total bilirubin higher than 20 mg/dL may lead to falsely low ionized calcium. CL Whole Blood 102 mmol/L CERNE R MILLENNIUM Gluc Whole Bld 226(H) mg/dL CERNE R MILLENNIUM Comment:Diabetes: >=200 mg/d L plus symptoms. Blood specimen (specimen) 09/02/2013 4:32 PM EST 09/02/2013 4:32 PM EST Mathew Snell MD POINT OF CARE TEST ORDERABLES CERNER MILLENNIUM * (ABNORMAL) Fibrinogen (09/02/2013 4:30 PM EST) Fibrinogen 151(L) 175 - 450 mg/dL CERNER MILLENNIUM Comment:Called by: RPR, Read back by: AMBER DE LA GARZA (OR 18), Date/Time:09/02/13 16:57. Blood specimen (specimen) 09/02/2013 4:30 PM EST 09/02/2013 4:40 PM EST Narrative Resulting Agency Comment Spec In Lab Mathew Snell MD HEMATOLOGY ORDERABL ES CERNER MILLENNIUM * Platelet count (09/02/2013 4:30 PM EST) Platelet 173 145 - 370 x10(3)/mcL CERNER MILLENNIUM Blood specimen (specimen) 09/02/2013 4:30 PM EST 09/02/2013 4:39 PM EST Narrative Resulting Agency Comment Spec In Lab Mathew Snell MD HEMATOLOGY ORDERABL ES Performing Organization Address City/[facility]/ZIP Co de Phone Number CERNER MILLENNIUM * (ABNORMAL) BLOOD GAS 2 ARTERIAL (09/02/2013 4:02 PM EST) pH, Arterial 7.43 CERNER MILLENNIUM PCO2, Arterial 38 mmHg CERNE R MILLENNIUM PO2, Arterial 411(H) mmHg CERNER MILLENNIUM Bicarbonate, Arterial 24.8 mmol/L CERNER MILLENNIUM Base Excess, Arterial 0.6 mmol/L CERNER MILLENNIUM Hgb Blood Gas 8.6(L) gm/dL CERNER MILLENNIUM Comment: Total Hemoglobin (in gm/dL) ?Based on [facility] Hematology ranges: ?Age ?Reference Range Less than 3 days ?14.5 to 22.5 3 days to 2 weeks ? 12.5 to 20.5 2 weeks to 1 month ?10.0 to 18.0 1 to 6 months ?9.4 to 14.0 6 months to 2 years ? 10.5 to 13.5 2 to 6 years ?11.5 to 13.5 6 to 12 years ? 11.5 to 15.5 12 to 18 years (female) 12.0 to 16.0 ? (male) ?? 13.0 to 16.0 > 18 years ? (female) 11.2 to 15.7 ? (male) ?? 13.7 to 17.5 Oxyhemoglobin, Arterial 98.5(H) % CERNER MILLENNIUM Carboxyhemoglob in, Arterial 0.6 % CERNER MILLENNIUM Comment: Nonsmokers: 0.5-1.5% COHB Smokers: Variable, but usually less than 10% Toxic: 20-30% COHB Lethal: Greater than 60% COHB Methemoglobin, Arterial 0.3 % CERNER MILLENNIUM Na Whole Blood 129(L) mmol/L CERNE R MILLENNIUM K Whole Blood 4.9 mmol/L CERNER MILLENNIUM Comment: Please note: Patients with WBC >100,000 may have falsely elevated Potassium levels. Contact the Clinical Chemistry Laboratory if there are any questions. ICa Whole Blood 0.90(Criti soren) mmol/L CERNER MILLENNIUM Comment: Reference Ranges: ?? < 19 yrs: 1.22 - 1.37 mmol/L ? Adults: 1.15 - 1.33 mmol/L Note: ??Total bilirubin higher than 20 mg/dL may lead to falsely low ionized calcium. CL Whole Blood 103 mmol/L CERNE R MILLENNIUM Gluc Whole Bld 212(H) mg/dL CERNE R MILLENNIUM Comment:Diabetes: >=200 mg/d L plus symptoms. Blood specimen (specimen) 09/02/2013 4:02 PM EST 09/02/2013 4:02 PM EST Mathew Snell MD POINT OF CARE TEST ORDERABLES MARCY FINCH * Surgical Pathology Report (09/02/2013 3:50 PM EST) Surgical Pathology Report ? [facility] ? Provider: ?? MATHEW SNELL ??Pt. Name: ?? IRVING ACOSTA ? Acc #: ?[id number] ?Pt. ? Col Date: ?? 09/02/2013 ?/Sex: ?1945,(68 years),Male ? Rec Date: ?? 09/02/2013 ?LOC: ?[facility] ? SURGICAL PATHOLOGY ? ---Pathologic Diagnosis--- ? A - Aortic valve/leaflets, clinically stenosis ? 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 09/05/13 ? VAM ? 09/05/13 Verified by: ? Ethan Oscar MD ? Pathologist ? (Electronic Signature) ? The attending pathologist whose signature appears on this report has ? reviewed all diagnostic slides and has edited the gross and/or ? microscopic portion of the report in rendering the final pathologic ? diagnosis. ? ---Gross Description--- ? Labeled/Fixative: Aortic valve/leaflets, fresh. ? Quantity/Size: Three leaflets, 7.0 x 1.3 x 0.2 cm in aggregate. ? Tissue Description: Three flat white leaflets with nodular calcifications. ? Sections/Processi ng: Administrative Tech sections are submitted in cassette A1. ? Blocks submitted for decalcification: A1.(R1) ??kjp ? ---Clinical Information--- ? Specimen Submitted: ? A - Aortic valve/leaflets ? Clinical History: ? Clinical Diagnosis: ? same MARCY MARTINSIUM 09/02/2013 3:50 PM EST Mathew Snell MD PATHOLOGY/CYTOLOGY ORDERABLES MARCY MONZONENNIUM * Specimen to Pathology (surgical or derm) (09/02/2013 3:50 PM EST) AP Specimen 09/02/2013 3:50 PM EST 09/02/2013 3:50 PM EST Narrative CERNER MILLENNIUM - 09/02/2013 3:50 PM EST Specimen requisition ordered. ??Separate Pathology report to follow Mathew Snell MD PATHOLOGY/CYTOLOGY ORDERABLES Performing Organization Address City/State/[facility] Co de Phone Number MARCY MONZONENNIUM * (ABNORMAL) BLOOD GAS 2 ARTERIAL (09/02/2013 3:34 PM EST) pH, Arterial 7.42 CERNER MILLENNIUM PCO2, Arterial 37 mmHg CERNE R MILLENNIUM PO2, Arterial 445(H) mmHg CERNER MILLENNIUM Bicarbonate, Arterial 23.8 mmol/L CERNER MILLENNIUM Base Excess, Arterial -0.7 mmol/L CERNER MILLENNIUM Hgb Blood Gas 9.2(L) gm/dL CERNER MILLENNIUM Comment: Total Hemoglobin (in gm/dL) ?Based on [facility] Hematology ranges: ?Age ?Reference Range Less than 3 days ?14.5 to 22.5 3 days to 2 weeks ? 12.5 to 20.5 2 weeks to 1 month ?10.0 to 18.0 1 to 6 months ?9.4 to 14.0 6 months to 2 years ? 10.5 to 13.5 2 to 6 years ?11.5 to 13.5 6 to 12 years ? 11.5 to 15.5 12 to 18 years (female) 12.0 to 16.0 ? (male) ?? 13.0 to 16.0 > 18 years ? (female) 11.2 to 15.7 ? (male) ?? 13.7 to 17.5 Oxyhemoglobin, Arterial 98.8(H) % CERNER MILLENNIUM Carboxyhemoglob in, Arterial 0.7 % CERNER MILLENNIUM Comment: Nonsmokers: 0.5-1.5% COHB Smokers: Variable, but usually less than 10% Toxic: 20-30% COHB Lethal: Greater than 60% COHB Methemoglobin, Arterial 0.2 % CERNER MILLENNIUM Na Whole Blood 132(L) mmol/L CERNE R MILLENNIUM K Whole Blood 4.8 mmol/L CERNER MILLENNIUM Comment: Please note: Patients with WBC >100,000 may have falsely elevated Potassium levels. Contact the Clinical Chemistry Laboratory if there are any questions. ICa Whole Blood 0.86(Criti soren) mmol/L CERNER MILLENNIUM Comment: Reference Ranges: ?? < 19 yrs: 1.22 - 1.37 mmol/L ? Adults: 1.15 - 1.33 mmol/L Note: ??Total bilirubin higher than 20 mg/dL may lead to falsely low ionized calcium. CL Whole Blood 104 mmol/L CERNE R MILLENNIUM Gluc Whole Bld 187 mg/dL CERNE R MILLENNIUM Comment:Diabetes: >=200 mg/d L plus symptoms. Blood specimen (specimen) 09/02/2013 3:34 PM EST 09/02/2013 3:34 PM EST Mathew Snell MD POINT OF CARE TEST ORDERABLES CERNER MILLENNIUM * (ABNORMAL) BLOOD GAS 2 ARTERIAL (09/02/2013 2:13 PM EST) pH, Arterial 7.37 CERNER MILLENNIUM PCO2, Arterial 46(H) mmHg CERNE R MILLENNIUM PO2, Arterial 331(H) mmHg CERNER MILLENNIUM Bicarbonate, Arterial 26.1(H) mmol/L CERNER MILLENNIUM Base Excess, Arterial 0.8 mmol/L CERNER MILLENNIUM Hgb Blood Gas 13.2(L) gm/dL CERNER MILLENNIUM Comment: Total Hemoglobin (in gm/dL) ?Based on [facility] Hematology ranges: ?Age ?Reference Range Less than 3 days ?14.5 to 22.5 3 days to 2 weeks ? 12.5 to 20.5 2 weeks to 1 month ?10.0 to 18.0 1 to 6 months ?9.4 to 14.0 6 months to 2 years ? 10.5 to 13.5 2 to 6 years ?11.5 to 13.5 6 to 12 years ? 11.5 to 15.5 12 to 18 years (female) 12.0 to 16.0 ? (male) ?? 13.0 to 16.0 > 18 years ? (female) 11.2 to 15.7 ? (male) ?? 13.7 to 17.5 Oxyhemoglobin, Arterial 98.4(H) % CERNER MILLENNIUM Carboxyhemoglob in, Arterial 1.0 % CERNER MILLENNIUM Comment: Nonsmokers: 0.5-1.5% COHB Smokers: Variable, but usually less than 10% Toxic: 20-30% COHB Lethal: Greater than 60% COHB Methemoglobin, Arterial 0.3 % CERNER MILLENNIUM Na Whole Blood 140 mmol/L CERNE R MILLENNIUM K Whole Blood 4.1 mmol/L CERNER MILLENNIUM Comment: Please note: Patients with WBC >100,000 may have falsely elevated Potassium levels. Contact the Clinical Chemistry Laboratory if there are any questions. ICa Whole Blood 1.13(L) mmol/L CERN ER MILLENNIUM Comment: Reference Ranges: ?? < 19 yrs: 1.22 - 1.37 mmol/L ? Adults: 1.15 - 1.33 mmol/L Note: ??Total bilirubin higher than 20 mg/dL may lead to falsely low ionized calcium. CL Whole Blood 105 mmol/L IRMA FINCH Gluc Whole Bld 108 mg/dL IRMA FINCH Comment:Diabetes: >=200 mg/d L plus symptoms. Blood specimen (specimen) 09/02/2013 2:13 PM EST 09/02/2013 2:13 PM EST Mathew Snell MD POINT OF CARE TEST ORDERABLES Performing Organization Address [facility] de Phone Number MARCY FINCH * Prepare RBC (09/02/2013 12:55 PM EST) Dispensed? 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 documented in this encounter Administered Medications Inactive Administered Medications - up to 3 most recent administrations Medication Order MAR Action Action Date Dose Rate Site acetaminophen (TYLENOL) tablet 1,000 mg 1,000 mg, Oral, EVERY 6 HOURS SCHEDULED, First dose on Sun09/03/13 at 0000, Until Discontinued, For pain when taking by mouth , Routine Given 09/06/2013 12:00 PM EST 1,000 mg Given 09/06/2013 6:23 AM EST 1,000 mg Given 09/06/2013 12:00 AM EST 1,000 mg albumin, human 5% 250 mL bottle Intravenous, ONCE, 1 dose, On Sun09/02/13 at 1945, PRN as needed for volume replacement to maintain cardiac index greater than or equal to 2.0 L/min/M2, Recovery (Recovery-Hospital Unit), STAT Given 09/02/2013 10:55 PM EST 25 g aspirin chewable tablet 81 mg 81 mg, Oral, DAILY, First dose on Sun09/03/13 at 0900, Until Discontinued, Start on post-op day 1 in the AM., Routine Given 09/06/2013 9:00 AM EST 81 mg Given 09/05/2013 9:31 AM EST 81 mg Given 09/04/2013 9:00 AM EST 81 mg ceFURoxime (ZINACEF) 750mg vial attach to sodium chloride 0.9% 100 mL Mini-Bag Plus 750 mg, Intravenous, EVERY 8 HOURS, 3 doses, First dose on Sun09/03/13 at 0145, Last dose on Sun09/03/13 at 1745, Administer over 30 Minutes, Attach to 100 mL sodium Chloride Mini-bag Plus. Give first dose at 8 hours after dose in operating room., Indication for (Active or Suspected): Prophylaxis Given 09/03/2013 5:45 PM EST 750 mg 200 mL/hr Given 09/03/2013 9:45 AM EST 750 mg 200 mL/hr Given 09/03/2013 1:45 AM EST 750 mg 200 mL/hr chlorhexidine (PERIDEX) 0.12 % oral solution 15 mL 15 mL, Oral, EVERY 12 HOURS SCHEDULED (2 times per day), First dose on Sun09/02/13 at 2100, Until Discontinued, Blevins teeth., Routine Given 09/06/2013 9:00 AM EST 15 mLs Given 09/05/2013 9:00 PM EST 15 mLs Given 09/05/2013 9:31 AM EST 15 mLs citalopram (celeXA) tablet 20 mg 20 mg, Oral, DAILY, First dose on Sun09/03/13 at 0900, Until Discontinued, Routine Given 09/06/2013 9:00 AM EST 20 mg Given 09/05/2013 9:31 AM EST 20 mg Given 09/04/2013 9:00 AM EST 20 mg esomeprazole (NEXIUM) capsule 40 mg 40 mg, Oral, DAILY, First dose on Sun09/02/13 at 2100, Until Discontinued, If unable to take PO, may give IV, Routine Given 09/06/2013 9:00 AM EST 40 mg Given 09/05/2013 9:31 AM EST 40 mg Given 09/04/2013 9:00 AM EST 40 mg fenofibrate micronized (LOFIBRA) capsule 134 mg 134 mg, Oral, DAILY WITH BREAKFAST, First dose on Sun09/03/13 at 0900, Until Discontinued, Routine Given 09/06/2013 8:00 AM EST 134 mg Given 09/05/2013 9:31 AM EST 134 mg Given 09/04/2013 8:00 AM EST 134 mg fentaNYL 2500mcg/50mL infusion 0-100 mcg/hr (rounded to 0-2 mL/hr), Intravenous, CONTINUOUS, Starting on Sun09/02/13 at 1945, Until Sun09/03/13 at 0605, Titrate to patient comfort. Dose not to exceed 100 mcg/hour Rate/Dose Verify 09/03/2013 2:00 AM EST 50 mcg/hr 1 mL/hr Rate/Dose Verify 09/03/2013 1:00 AM EST 50 mcg/hr 1 mL/hr Rate/Dose Verify 09/03/2013 12:00 AM EST 50 mcg/hr 1 mL/h r fentaNYL 50mcg/mL injection 25-50 mcg, Intravenous, EVERY 1 HOUR PRN, Starting on Sun09/02/13 at 1920, Until Sun09/04/13 at 1040, Pain, For pain when extubated., Routine Given 09/03/2013 9:40 PM EST 25 mcg Given 09/03/2013 1:55 PM EST 50 mcg furosemide (LASIX) injection 20 mg 20 mg, Intravenous, 2 TIMES DAILY, First dose on Sun09/03/13 at 0900, Until Discontinued Given 09/03/2013 5:00 PM EST 20 mg Given 09/03/2013 9:00 AM EST 20 mg furosemide (LASIX) injection 40 mg 40 mg, Intravenous, 2 TIMES DAILY, First dose (after last modification) on Cindy 09/04/13 at 0900, Until Discontinued Given 09/05/2013 6:14 PM EST 40 mg Given 09/05/2013 9:31 AM EST 40 mg Given 09/04/2013 6:18 PM EST 40 mg hydrALAZINE (APRESOLINE) injection 5-10 mg 5-10 mg, Intravenous, EVERY 2 HOURS PRN, Starting on Sun09/03/13 at 0811, Until Sun09/05/13 at 1249, High Blood Pressure, Give for SBP > 140 Given 09/03/2013 12:47 PM EST 10 mg HYDROmorphone (DILAUDID) 2 mg tablet 1 dose, Starting on Sun09/03/13 at 1321, Until Sun09/03/13 at 1328, Lesvia Cross: cabinet override HYDROmorphone (DILAUDID) tablet 2-4 mg 2-4 mg, Oral, EVERY 4 HOURS PRN, Starting on Sun09/02/13 at 1920, Until Sun09/03/13 at 1314, Pain, For pain when taking by mouth., Routine Given 09/03/2013 10:08 AM EST 4 mg Given 09/03/2013 6:00 AM EST 4 mg HYDROmorphone (DILAUDID) tablet 2-6 mg 2-6 mg, Oral, EVERY 4 HOURS PRN, Starting on Sun09/03/13 at 1313, Until Sun09/06/13 at 1531, Pain, For pain when taking by mouth., Routine Given 09/04/2013 10:09 AM EST 6 mg Given 09/04/2013 6:01 AM EST 6 mg Given 09/03/2013 9:08 PM EST 6 mg insulin aspart (novoLOG) PEN injection 2-8 Units 2-8 Units, Subcutaneous, EVERY 4 HOURS SCHEDULED, First dose on Sun09/04/13 at 0915, Until Discontinued, CORRECTION BOLUS Moderate BG 140 - 160 Give 2 units BG 161 - 200 Give 4 units BG 201 - 240 Give 6 units BG greater than 240, give 8 units and recheck BG in 2 hours. If BG remains greater than 240, repeat 8 units (no more than three times) & call for new basal insulin orders. If less than 240 after two hours, give no insulin and resume prior schedule., Routine Given 09/05/2013 12:00 AM EST 2 Units Given 09/04/2013 12:29 PM EST 2 Units insulin regular human (HUMULIN;NOVOLIN) 150 Units in sodium chloride 0.9% 150 mL infusion 0.5-16 Units/hr (rounded to 0.5-16 mL/hr), Intravenous, CHANGE BAG EVERY EVENING, First dose on Sun09/02/13 at 2030, Until Discontinued, Type 2 diabetes. Current blood glucose 180 - 239 Titration- aim for target range of 140 - 180 mg/dL. Check BG every hour unless otherwise indicated. [[ Initial bolus of 4 units, then begin continuous infusion at 3.5 units/hour. ]] Current BG less than 80 - Stop insulin, give juice or D50 per protocol. Re-check BG in 30 minutes and as soon as BG is greater than 80, restart with rate 50% of previous rate. If infusion stopped after previous rate had been 0.5 unit/hour, recheck every hour and when BG greater than 100 and higher than last test restart at 0.5 unit/hour. Current BG 80 - 139 - If BG dropped 10 mg/dL or more since last test, decrease rate by 50% and re-check in 30 minutes. Otherwise, decrease rate by 0.5 units/hour. Current BG 140 - 180 - If BG dropped 50 mg/dL or more since last test, decrease rate by 1 unit/hour. Otherwise, maintain same rate. Current BG 181 - 220 - If BG is lower than last test, maintain same rate. Otherwise, increase rate by 0.5 units/hour. Current BG 221 - 250 - If BG dropped 30 mg/dL or more since last test, maintain same rate. Otherwise, increase rate by 1 unit/hour. Current BG greater than 250 - Increase rate by 1 unit/hour AND bolus with Regular insulin IV as per IV Bolus Scale. Re-check BG in 30 minutes. Rate/Dose Change 09/03/2013 2:00 PM EST 0.5 Units/hr 0.5 mL/hr Rate/Dose Change 09/03/2013 12:00 PM EST 1 Units/hr 1 mL/h r Rate/Dose Change 09/03/2013 10:43 AM EST 2 Units/hr 2 mL/h r ipratropium-albuterol (DUONEB) 0.5 mg-3 mg(2.5 mg base)/3 mL nebulizer solution 3 mL 3 mL, Nebulization, EVERY 4 HOURS SCHEDULED, First dose on Sun09/03/13 at 1400, Until Discontinued, Routine Given 09/03/2013 1:34 PM EST 3 mLs ketorolac (TORADOL) injection 15 mg 15 mg, Intravenous, EVERY 6 HOURS SCHEDULED, 5 doses, First dose on Sun09/03/13 at 1500, Last dose on Sun09/04/13 at 1800, Routine Given 09/04/2013 6:14 PM EST 1 5 mg Given 09/04/2013 12:30 PM EST 15 mg Given 09/04/2013 6:00 AM EST 15 mg magnesium hydroxide (MILK OF MAGNESIA) oral suspension 10 mL 10 mL, Oral, DAILY, First dose on Cindy 09/04/13 at 0900, Until Discontinued, Post-op day 2. Do not use with renal insufficiency., Routine Given 09/06/2013 9:00 AM EST 10 mLs Given 09/04/2013 9:00 AM EST 10 mLs metolazone (ZAROXOLYN) tablet 5 mg 5 mg, Oral, ONCE, 1 dose, On Sun09/05/13 at 1100, Routine Given 09/05/2013 12:01 PM EST 5 mg metoprolol (LOPRESSOR) tablet 12.5 mg 12.5 mg, Oral, EVERY 12 HOURS SCHEDULED (2 times per day), First dose (after last modification) on Cindy 09/04/13 at 2100, Until Discontinued, Hold for HR<50, SBP<90, Routine Given 09/06/2013 9:00 AM EST 12.5 mg Given 09/05/2013 8:59 PM EST 12.5 mg Given 09/05/2013 9:31 AM EST 12.5 mg metoprolol tartrate (LOPRESSOR) tablet 25 mg 25 mg, Oral, EVERY 12 HOURS SCHEDULED (2 times per day), First dose on Sun09/03/13 at 0900, Until Discontinued, Routine Given 09/03/2013 9:00 PM EST 25 mg Given 09/03/2013 9:00 AM EST 25 mg nitroGLYcerin 50 mg in dextrose 5% 250 mL infusion 0-200 mcg/min (rounded to 0-60 mL/hr), Intravenous, CONTINUOUS, Starting on Sun09/02/13 at 1945, Until Sun09/03/13 at 1353, Titrate to keep systolic blood pressure less than 120 mmHg. Dose not to exceed 200 mcg/minute., Routine Rate/Dose Change 09/03/2013 11:25 AM EST 10 mcg/min 3 mL/hr Rate/Dose Change 09/03/2013 10:32 AM EST 30 mcg/min 9 mL/h r Rate/Dose Change 09/03/2013 9:56 AM EST 50 mcg/min 15 mL/h r PHENYLephrine (LISA-SYNEPHRINE) 20 mg in sodium chloride 250 mL infusion 0-200 mcg/min (rounded to 0-150 mL/hr), Intravenous, CONTINUOUS, Starting on Sun09/02/13 at 1945, Until Sun09/03/13 at 0605, Titrate to keep systolic blood pressure greater than 90 mmHg.Dose not to exceed 200 mcg/minute., Routine Rate/Dose Verify 09/03/2013 1:00 AM EST 10 mcg/min 7.5 mL/hr New Bag 09/03/2013 12:27 AM EST 10 mcg/min 7.5 mL/hr Rate/Dose Verify 09/03/2013 12:00 AM EST 20 mcg/min 15 mL/ hr potassium chloride (K-DUR/KLOR-CON) extended release tablet 20 mEq 20 mEq, Oral, 2 TIMES DAILY, First dose on Cnidy 09/04/13 at 1100, Until Discontinued, Routine Given 09/06/2013 9:00 AM EST 20 mEq Given 09/05/2013 9:00 PM EST 20 mEq Given 09/05/2013 9:31 AM EST 20 mEq potassium chloride 20 mEq in 100 mL 20 mEq, Intravenous, EVERY 1 HOUR PRN, Starting on Sun09/02/13 at 1920, Until Sun09/04/13 at 1040, Administer over 60 Minutes, hypokalemia, Administer for a serum potassium (mMol/L) of 3.9 - 4 New Bag 09/03/2013 8:41 AM EST 20 mEq 100 mL/hr propofol (DIPRIVAN) infusion 0-50 mcg/kg/min ? 135.6 kg (rounded to 0-40.7 mL/hr), Intravenous, CONTINUOUS, Starting on Sun09/02/13 at 1945, Until Sun09/03/13 at 0605, Titrate to sedation level of RASS -1. Dose not to exceed 50 mcg/kg/minute. Discontinue upon extubation., Routine Rate/Dose Change 09/03/2013 1:00 AM EST 10 mcg/kg/min 8.1 mL/hr New Bag 09/03/2013 12:27 AM EST 15 mcg/kg/min 12.2 mL/h r Rate/Dose Verify 09/03/2013 12:00 AM EST 25 mcg/kg/min 20. 3 mL/hr senna-docusate (PERICOLACE) 8.6-50 mg per tablet 2 tablet 2 tablet, Oral, DAILY, First dose on Sun09/03/13 at 2100, Until Discontinued, Post-op day 1, Routine Given 09/03/2013 9:00 PM EST 2 tablets sodium chloride 0.9 % flush 5 mL 5 mL, Intravenous, EVERY 8 HOURS, First dose on Sun09/04/13 at 1100, Until Discontinued, Routine Given 09/06/2013 3:00 AM EST 5 mLs Given 09/05/2013 6:14 PM EST 5 mLs Given 09/05/2013 12:01 PM EST 5 mLs sodium chloride 0.9% infusion 0-500 mL/hr, Intravenous, CONTINUOUS, Starting on Sun09/02/13 at 1945, Until Sun09/04/13 at 0850, As needed for volume replacement to maintain cardiac index greater than or equal to 2.0 L/min/M2. Call powerhouse attendant for additional fluid orders: pager #[phone]. Rate/Dose Verify 09/03/2013 2:00 AM EST 100 mL/hr 100 mL/hr Rate/Dose Verify 09/03/2013 1:00 AM EST 100 mL/hr 100 mL/ hr Rate/Dose Verify 09/03/2013 12:00 AM EST 100 mL/hr 100 mL /hr sodium chloride 0.9% infusion 10-30 mL/hr, Intravenous, DAILY PRN, Starting on Sun09/02/13 at 1920, Until Sun09/04/13 at 1040, Side port TKO rate Rate/Dose Verify 09/04/2013 8:00 AM EST 20 mL/hr 20 mL/hr Rate/Dose Verify 09/04/2013 6:00 AM EST 20 mL/hr 20 mL/h r Rate/Dose Verify 09/04/2013 4:00 AM EST 20 mL/hr 20 mL/h r sodium chloride 0.9% infusion 10-30 mL/hr, Intravenous, DAILY PRN, Starting on Sun09/02/13 at 1920, Until Sun09/04/13 at 1040, Side port TKO rate Rate/Dose Verify 09/03/2013 8:00 AM EST 30 mL/hr 30 mL/hr Rate/Dose Verify 09/03/2013 6:00 AM EST 30 mL/hr 30 mL/h r Rate/Dose Verify 09/03/2013 4:00 AM EST 30 mL/hr 30 mL/h r vasopressin (PITRESSIN) 50 Units in sodium chloride 0.9% 100 mL infusion 0-0.04 Units/min (rounded to 0-4.8 mL/hr), Intravenous, CONTINUOUS, Starting on Sun09/02/13 at 2030, Until Sun09/03/13 at 0605, Titrate to keep cardiac index greater than 2 and and systolic blood pressure greater than 90 mmHg. Dose not to exceed 0.04 units/minute. Rate/Dose Change 09/03/2013 2:00 AM EST 0.02 Units/min 2.4 mL/hr Rate/Dose Verify 09/03/2013 1:00 AM EST 0.04 Units/min 4.8 mL/hr Rate/Dose Verify 09/03/2013 12:00 AM EST 0.04 Units/min 4. 8 mL/hr documented in this encounter Active and Recently Administered Medications Times are shown in EST. Scheduled Medication Order 09/04/2013 09/05/2013 09/06/2013 acetaminophen (TYLENOL) tablet 1,000 mg 1,000 mg, Oral, EVERY 6 HOURS SCHEDULED, First dose on Sun09/03/13 at 0000, Until Discontinued, For pain when taking by mouth , Routine 0000 (Given - Provider: Brynn Alba RN)0600 (Given - Provider: Brynn Alba RN)1229 (Given - Provider: Peggy Hayes, JULIA)1818 (Given - Provider: Jimena Olivier, JULIA)2358 (Given - Provider: Radha Watt, JULIA) 0519 (Given - Provider: Radha Watt RN)1201 (Given - Provider: Erica Russell, JULIA)1814 (Given - Provider: Erica Russell, JULIA) 0000 (Given - Provider: Chayito Hinds RN)0623 (Given - Provider: Chayito Hinds RN)1200 (Given - Provider: Ruma Brady, JULIA) aspirin chewable tablet 81 mg (CANCELED)(Linked Group 1) 81 mg, Oral, DAILY, First dose on Sun09/03/13 at 0900, Until Discontinued, Start on post-op day 1 in the AM., Routine 0900 (Given - Provider: Rafael Ho RN) 0931 (Given - Provider: Erica Russell, JULIA) 0900 (Given - Provider: Ruma Brady, JULIA) chlorhexidine (PERIDEX) 0.12 % oral solution 15 mL (CANCELED) 15 mL, Oral, EVERY 12 HOURS SCHEDULED (2 times per day), First dose on Sun09/02/13 at 2100, Until Discontinued, Blevins teeth., Routine 0900 (Given - Provider: Rafael Ho RN)2100 (Not Given - Provider: Radha Watt RN - Reason: Contraindicated) 0931 (Given - Provider: Erica Russell, JULIA)2100 (Given - Provider: Chayito Hinds RN) 0900 (Given - Provider: Ruma Brady, JULIA) citalopram (celeXA) tablet 20 mg (CANCELED) 20 mg, Oral, DAILY, First dose on Sun09/03/13 at 0900, Until Discontinued, Routine 0900 (Given - Provider: Rafael Ho RN) 930 (Given - Provider: Erica Russell RN) 09 (Given - Provider: Ruma Brady RN) esomeprazole (NEXIUM) capsule 40 mg (CANCELED)(Linked Group 2) 40 mg, Oral, DAILY, First dose on Sun09/02/13 at 2100, Until Discontinued, If unable to take PO, may give IV, Routine 0900 (Given - Provider: Rafael Ho RN) 930 (Given - Provider: Erica Russell RN) 899 (Given - Provider: Ruma Brady, JULIA) fenofibrate micronized (LOFIBRA) capsule 134 mg (CANCELED) 134 mg, Oral, DAILY WITH BREAKFAST, First dose on Sun09/03/13 at 0900, Until Discontinued, Routine 0800 (Given - Provider: Rafael Ho RN) 930 (Given - Provider: Erica Russell RN) 08 (Given - Provider: Ruma Brady RN) furosemide (LASIX) injection 40 mg (CANCELED) 40 mg, Intravenous, 2 TIMES DAILY, First dose (after last modification) on Sun09/04/13 at 0900, Until Discontinued 899 (Given - Provider: Rafael Ho RN)181 (Given - Provider: Jimena Olivier RN) 930 (Given - Provider: Erica Russell RN)1813 (Given - Provider: Erica Russell RN) 0900 (Not Given - Provider: Ruma Brady RN - Reason: Loss of access) insulin aspart (novoLOG) PEN injection 2-8 Units (CANCELED) 2-8 Units, Subcutaneous, EVERY 4 HOURS SCHEDULED, First dose on Sun09/04/13 at 0915, Until Discontinued, CORRECTION BOLUS Moderate BG 140 - 160 Give 2 units BG 161 - 200 Give 4 units BG 201 - 240 Give 6 units BG greater than 240, give 8 units and recheck BG in 2 hours. If BG remains greater than 240, repeat 8 units (no more than three times) & call for new basal insulin orders. If less than 240 after two hours, give no insulin and resume prior schedule., Routine 0915 (Not Given - Provider: Rafael Ho RN - Reason: Order parameters not met)1229 (Given - Provider: Peggy Hayes, JULIA)1801 (Not Given - Provider: Jimena Olivier RN - Reason: Order parameters not met)2039 (Not Given - Provider: Radha Watt RN - Reason: Order parameters not met) 0000 (Given - Provider: Radha Watt RN)0414 (Not Given - Provider: Radha Watt RN - Reason: Order parameters not met)0800 (Not Given - Provider: Erica Russell RN - Reason: Order parameters not met)1200 (Not Given - Provider: Erica Russell RN - Reason: Order parameters not met) ketorolac (TORADOL) injection 15 mg (COMPLETED) 15 mg, Intravenous, EVERY 6 HOURS SCHEDULED, 5 doses, First dose on Sun09/03/13 at 1500, Last dose on Sun09/04/13 at 1800, Routine 0000 (Given - Provider: Brynn Alba, JULIA)0600 (Given - Provider: Brynn Alba, JULIA)1230 (Given - Provider: Peggy Hayes, JULIA)1814 (Given - Provider: Jimena Olivier, JULIA) magnesium hydroxide (MILK OF MAGNESIA) oral suspension 10 mL 10 mL, Oral, DAILY, First dose on Sun09/04/13 at 0900, Until Discontinued, Post-op day 2. Do not use with renal insufficiency., Routine 0900 (Given - Provider: Rafael Ho, JULIA) 0931 (Not Given - Provider: Erica Russell, JULIA - Reason: See comment - Comment: pt had loos bm this am) 0900 (Given - Provider: Ruma Brady, JULIA) metolazone (ZAROXOLYN) tablet 5 mg (COMPLETED) 5 mg, Oral, ONCE, 1 dose, On Sun09/05/13 at 1100, Routine 1201 (Given - Provider: Erica Russell RN) metoprolol (LOPRESSOR) tablet 12.5 mg 12.5 mg, Oral, EVERY 12 HOURS SCHEDULED (2 times per day), First dose (after last modification) on Sun09/04/13 at 2100, Until Discontinued, Hold for HR<50, SBP<90, Routine 2031 (Given - Provider: Radha Watt RN) 0931 (Given - Provider: Erica Russell, JULIA)2058 (Given - Provider: Chayito Hinds RN) 09 (Given - Provider: Ruma Brady RN) potassium chloride (K-DUR/KLOR-CON) extended release tablet 20 mEq 20 mEq, Oral, 2 TIMES DAILY, First dose on Sun09/04/13 at 1100, Until Discontinued, Routine 1230 (Given - Provider: Peggy Hayes RN)2031 (Given - Provider: Radha Watt RN) 0931 (Given - Provider: Erica Russell, JULIA)2099 (Given - Provider: Chayito Hinds RN) 0900 (Given - Provider: Ruma Brady, JULIA) senna-docusate (PERICOLACE) 8.6-50 mg per tablet 2 tablet 2 tablet, Oral, DAILY, First dose on Sun09/03/13 at 2100, Until Discontinued, Post-op day 1, Routine 2099 (Not Given - Provider: Radha Watt RN - Reason: Contraindicated) 2099 (Not Given - Provider: Chayito Hinds RN - Reason: Patient/family refused) sodium chloride 0.9 % flush 5 mL (CANCELED) 5 mL, Intravenous, EVERY 8 HOURS, First dose on Sun09/04/13 at 1100, Until Discontinued, Routine 1042 (Given - Provider: Peggy Hayes, JULIA)1818 (Given - Provider: Jimena Olivier, RN) 0300 (Given - Provider: Radha Watt, JULIA)1201 (Given - Provider: Erica Russell, RN)1814 (Given - Provider: Erica Russell, JULIA) 0300 (Given - Provider: Chayito Hinds, RN)1100 (Not Given - Provider: Ruma Brady RN - Reason: Loss of access) PRN Medication Order 09/04/2013 09/05/2013 09/06/2013 bisacodyl (DULCOLAX) suppository 10 mg 10 mg, Rectal, DAILY PRN, Starting on Sun09/05/13 at 0000, Until 09/06/13 at 1531, Constipation, Starting post-op day 3., Routine HYDROmorphone (DILAUDID) tablet 2-6 mg 2-6 mg, Oral, EVERY 4 HOURS PRN, Starting on Sun09/03/13 at 1313, Until 09/06/13 at 1531, Pain, For pain when taking by mouth., Routine 0601 (Given - Provider: Brynn Alba RN)1009 (Given - Provider: Rafael Ho, JULIA) sodium chloride 0.9% infusion (CANCELED) 10-30 mL/hr, Intravenous, DAILY PRN, Starting on Sun09/02/13 at 1920, Until Sun09/04/13 at 1040, Side port TKO rate 0000 (Rate/Dose Verify - Provider: Brynn Alba RN)0200 (Rate/Dose Verify - Provider: Brynn Alba RN)0400 (Rate/Dose Verify - Provider: Brynn Alba RN)0600 (Rate/Dose Verify - Provider: Brynn Alba RN)0800 (Rate/Dose Verify - Provider: Rafael Ho, JULIA)0900 (Stopped - Provider: Rafael Ho, JULIA) Linked Groups Order Group 1: aspirin chewable tablet 81 mg (CANCELED)Jump to med 81 mg, Oral, DAILY, First dose on Sun09/03/13 at 0900, Until Discontinued, Start on post-op day 1 in the AM., Routine Or aspirin suppository 300 mg (CANCELED) 300 mg, Rectal, DAILY, First dose on Sun09/03/13 at 0900, Until Discontinued, Start on post-op day 1 in the AM, Routine Group 2: esomeprazole (NEXIUM) capsule 40 mg (CANCELED)Jump to med 40 mg, Oral, DAILY, First dose on Sun09/02/13 at 2100, Until Discontinued, If unable to take PO, may give IV, Routine Or esomeprazole (NEXIUM) injection 40 mg (CANCELED) 40 mg, Intravenous, DAILY, First dose on Sun09/02/13 at 2100, Until Discontinued, Routine documented in this encounter Care Teams District Engineer Relationship Specialty Start Date End Date Macario Hernandez DO [address] [place], [place] [id number] [facility] [address] [place] [address] PCP - General 08/16/10 02/25/23 documented as of this encounter
--- OUTSIDE RECORDS SUMMARY | 2024-09-23 14:23 | XMS_ITS | Encounter Summary ---
[place] [address] Care Team Providers Care Perioperative Nurse Name Role Phone Macario Hernandez DO Primary Care Provider [phone] Encounter Details Date Type Department Care Team (Late st Contact Info) Description 09/02/2013 11:58 AM EST - 09/02/2013 4:26 PM EST Surgery [place] [address] Mathew Snell MD @REPLACE AORTIC VALVE, OPEN, W\CPB, W\PROSTHETIC VALVE (WRVU 41.32) Social History Tobacco Use Types Packs/Day Years [...] Please refer to the card with the [place] [employer] Guidelines for more information. You [...] Dr. Mathew Eric. You may use a [place] Track or treadmill but avoid any pulling [...] friends, go to a movie, go to denominational, etc. Heavy activities: No hunting, skiing, jogging, [...] should resume a low fat, low cholesterol, [place] Heart [employer] Diet. Driving: No driving for [...] 09/26/2013 1:45 PM Lan Singh MD Rheumatology [phone] [facility] Joint Appt Rheumatology Nurse Res LEB [phone] [facility] documented in this encounter Medications at [...] of this encounter Progress Notes * Colin Bolaños, PT - 09/06/2013 2:44 PM EST Physical Therapy Note Pt was on the weekend PT list for today; chart reviewed. Pt was d/c'd prior to PT seeing him today.Home PT is recommended, and it has been set up. Colin Bolaños, PT Beeper# [phone] * Partha Cameron MD - 09/06/2013 12:06 PM EST Cardiac Surgery Progress Note: ID: [id number] 68/M POD #4 CABGx3/tissue AVR/aortoplasty Subjective and [...] sources: Medicare Common Working File (CWF) via [employer] system Direct feedback from the originally designated Home Health facility In particular, this patient was discharged to home health. We verified that the post-acute care didnot take place within the required time frame. OFFICE OF CARE MANAGEMENT CLINICAL BUSINESS LOAN PROCESSOR PROGRESS NOTE e-DH reviewed. Report received from [...] pt wishes to have referral placed to [facility]. PHONE: [phone] FAX: [phone] . Orders pended and human resources assistant notified. Plan: CRC will continue to follow for coordination of care and to facilitate discharge planning. Quentin CHEN, RN Clinical Aerodynamicist Pager [phone] * Michael Read PA - 09/05/2013 12:49 PM EST Cardiac Surgery Progress Note: ID: [id number] 68/M POD #3 CABGx3/tissue AVR/aortoplasty Subjective and [...] Bipap 09/02 07 - 09/03 0700 In: 3727 [I.V.:2020] Out: 1974 [Urine:1750] 200cc CT Admit [...] 09/03/2013 2:35 AM EST Extubated to Bipap, 10/5@40% Sat is 96. Tidal volume is 682. Will transition to venti mask and f/b nasal cannula in am. * Becki Stevens, RN - 08/27/2013 3:58 PM EST Office of Care Management (OCM) / Clinical Aerodynamicist (CRC)/ PRE-OP ASSESSMENT Reviewed record and interviewed [...] for details HEALTH /PRESCRIPTION COVERAGE: Medicare and [employer] Insurance. Uses [facility] in [facility] CURRENT HOME/COMMUNITY SERVICES/EQUIPMENT: Canes and walkers (for him) ELECTRICIAN SOUND REFERRAL: None PRIMARY CARE PHYSICIAN:Macario Hernandez DO POTENTIAL DISCHARGE NEEDS: Home with VNA: [facility] (patient gives permission for VNA referral) Patient may benefit from acute/SNF/swing/LTAC rehab at discharge. Discussed [facility], Office of Care Management letter from the Environmental Health Officer pertaining to rehab referrals.Reviewed levels of rehab including SNF, swing, acute and LTAC. Provided [place] list of rehab choices. If patient needs rehab he is aware of [facility] or [facility]. Patient does NOTgive permission for SNF referral at this time but would like to meet with an inpatient CRC prior toany referral. Patient is hopeful that he will be able to return to home with VNA services. TRANSPORTATION @ D/C: [facility] will help assess all discharge needs and will place appropriate orders and referrals as needed. Office of Care Management Instrument Technologist Becki Stevens MSN, RN Pager: [phone] documented in this encounter H&P Notes * Mathew Snell MD - 09/02/2013 12:50 PM EST No interval change. Getting over a cold. He is ready for surgery. Source Note - Mathew Snell MD - 09/02/2013 12:47 PM EST Referring Physician: Williams Miranda, Cardiology, [facility] Primary Care Physician: Macario Hernandez D.O. He has been to [facility] once and seen a cardiological there and it appears that it was Dr. Turcios that he saw there and he once a year goes to [facility]. However, he does not consider that his primary hospital. Mr. Acosta is a 67-year-old obese gentleman who has had an echo done first at the [facility], then [facility], and he has dobutamine stress done here. Each echo puts his valve area right around the 1cm yennifer. [facility] got 1.2, the [facility] got 1.1. His mean gradients on the [...] different times by Dr. Barragan here at [facility]. He has had diverticulitis, in which he had a diverting colostomy ultimately got a sigmoid and reconnected [place]. He had a subdural hematoma that Dr. [...] had a long discussion with his referring rabbit fancier regarding timing of the surgery, expectations for symptom relief, and at this point he would like to just have this done so that he can go to [place] in November and hopefully work on a [...] the likelihood of making it down to [place] in November. He knows that he will [...] PM EST Referring Physician: Williams Miranda, Cardiology, [facility] Primary Care Physician: Macario Hernandez D.O. He has been to [facility] once and seen a cardiological there and it appears that it was Dr. Turcios that he saw there and he once a year goes to [place] [facility]. However, he does not consider that his primary hospital. Mr. Acosta is a 67-year-old obese gentleman who has had an echo done first at the [facility], then [facility], and he has dobutamine stress done here. Each echo puts his valve area right around the 1cm yennifer. [facility] got 1.2, the [facility] got 1.1. His mean gradients on the [...] different times by Dr. Barragan here at [facility]. He has had diverticulitis, in which he had a diverting colostomy ultimately got a sigmoid and reconnected [place]. He had a subdural hematoma that Dr. [...] had a long discussion with his referring rabbit fancier regarding timing of the surgery, expectations for symptom relief, and at this point he would like to just have this done so that he can go to [place] in November and hopefully work on a [...] the likelihood of making it down to [place] in November. He knows that he will [...] 09/07/2013 9:06 AM ESTAssociated Order(s): SCAN DOC: DIRECTOR OF GROUP COUNSELING PROGRAM documented in this encounter Nursing Notes * [...] clean, dry, intact, well approximated, some scabbing. [place] in place. Problem: Cardiac Surgery (Adult) Goal: [...] BP: 136/63, Pre PT Incentive Spirometer: Volume: [id number] Quality: good. Many productive coughs. Mental Status/Behavior:WNLS [...] Total time spent with patient: 38 minutes [id number] Total timed interventions: 38 minutes MONIQUE BRIAN, PT Pager: [phone] Physical Therapy Rehabilitation Department * Consult Note - Yi Stearns RN - 09/05/2013 12:28 PM EST [facility] CARDIAC REHABILITATION Irving Acosta was seen today regarding participation in outpatient Phase 2 Cardiac Rehabilitationat [facility] . A referral will be sent to this program. The patient was given contact information and should expect to be contacted by the program within 1-2 weeks after discharge from [facility]. * Initial Assessments - Monique Brian, PT - 09/04/2013 2:21 PM EST Physical [...] Total time spent with patient: 28 minutes DOMINICK Total timed interventions: 28 minutes MONIQUE BRIAN, PT Pager: [phone] Physical Therapy Rehabilitation Department * Plan of Care - Rafael Ho RN - 09/04/2013 9:02 AM EST Problem: Trauma/Injury Risk (Adult, Obstetric) Goal: Trauma/Injury Risk: Absence of Trauma/Injury/Falls Patient agrees to call for help before getting out of bed or chair. Fall risk assessment completed. * Plan of Turner - Rafael Ho RN - 09/04/2013 9:01 AM EST Problem: Pain, Acute (Adult, Obstetric) Goal: Acute Pain: Acceptable Pain Control/Comfort Level - Pain, Acute (Adult, Obstetric) Patient states pain is well controlled on current pain regimine. * Plan of Turner - Rafael Ho RN - 09/04/2013 8:58 AM EST Problem: Cardiac Surgery (Adult) Goal: Prevent/Manage Potential Problems Based on my scope of practice, I assessed for signs and symptoms of potential problems that could be present as documented. Dr. Snell and team in for rounds and plan of care discussed. Patient's questions were answered. * Plan of Rafael Jones RN - 09/04/2013 8:57 AM EST Problem: [...] interventions: 0 minutes MONIQUE BRIAN PT Pager: [phone] Physical Therapy Rehabilitation Department * Op Note - Mathew Snell MD - 09/02/2013 9:37 PM EST 09/07/2013 Irving Acosta 1945 [id number] Preoperative Diagnosis: Coronary artery disease Stable Angina Symptomatic aortic stenosis Postoperative Diagnosis: Coronary artery disease Stable Angina Symptomatic aortic stenosis Procedure: Aortic valve replacement Bovine Pericardial 25 mm CABG times 2: UGERRA to LAD, SVG to om. Endoscopic vein harvest aortoplasty with a patch Surgeon: Mathew Snell M.D. Chemistry Associate: Camron Oconnell PA-C Anesthesia: General endotracheal anesthesia [...] the medial aspect of the knee. The [employer] XB7 system was used to dissect out [...] applied. The patient was transported to the [facility] on [place]. All counts were correct. * OR Attestation - Mathew Snell MD - 09/02/2013 6:54 PM EST Attestation: Case Date: 09/02/2013 I performed this procedure without the involvement of a resident. MATHEW SNELL MD 09/02/2013 * Brief Op Note - Mathew Snell MD - 09/02/2013 6:51 PM EST Brief Operative Note Patient Name: Irving Acosta : [id number] MR#: [id number] Case Date: 09/02/2013 Surgeon: Surgeon(s) and Role: * Mathew Snell MD - Primary * Michael Read PA - Resident-Bead Cutter * Lauryn Ahmadi MD - Resident-Bead Cutter Preoperative diagnosis: as Postoperative diagnosis: as, cad [...] different times by Dr. Barragan here at [facility]. He has had diverticulitis, in which he had a diverting colostomy ultimately got a sigmoid and reconnected [place] He had a subdural hematoma that Dr. [...] Tetracyclines History of Presentation: Williams Miranda, Cardiology, [facility] Primary Care Physician: Macario Hernandez D.O. He has been to [facility] once and seen a cardiological there and it appears that it was Dr. Turcios that he saw there and he once a year goes to [facility]. However, he does not consider that his primary hospital. Mr. Acosta is a 67-year-old obese gentleman who has had an echo done first at the [facility], then [facility], and he has dobutamine stress done here. Each echo puts his valve area right around the 1cm yennifer. [facility] got 1.2, the [facility] got 1.1. His mean gradients on the [...] Hospital Course: Irving Acosta was admitted to [facility] on 09/02/2013 via the Same Day [...] Please refer to the card with the [place] Heart Association Guidelines for more information. You [...] Dr. Mathew Eric. You may use a [place] Track or treadmill but avoid any pulling [...] friends, go to a movie, go to denominational, etc. Heavy activities: No hunting, skiing, jogging, [...] should resume a low fat, low cholesterol, [place] Heart Association Diet. Driving: No driving for [...] 09/26/2013 1:45 PM Lan Singh MD Rheumatology [phone] [facility] Joint Appt [facility] [phone] [facility] Special Physician Instructions: Needs to have follow up on Sunday with CXR and labs. Cardiac Rehabilitation: arranged Home oxygen therapy: N/A Arrangements for VNA/home care: Referral to Home Health Routine, Clinic Performed Agency name and contact information: [facility] Patient location post discharge: Home What services are requested: Registered Nurse, Physical Therapy Responsible MD post discharge contact info: Dr. Paz DOCUMENTATION FOR VNA SERVICES (INCLUDING THOSE PATIENTS WITH MEDICARE COVERAGE REQUIRING HOME VNA SERVICES AND/OR HOSPICE SERVICES) PATIENT'S LOCATION: Irving Acosta [address] [place] [phone] (home) No relevant phone numbers on file. Methods Time Analyst's Name: Pt In discussion with the attending physician, it is certified that this patient is under their care and that they, or a Nurse Practitioner, or Physician Chemistry Associate who is working directly with them, had [...] for services as follows: HOME HEALTH AGENCY: [facility] PHONE: [phone] FAX: [phone] RN orders: Cardiopulmonary assessment, incisional assessment, assess [...] please call the Cardiac Surgery Office at [phone] FOR MEDICARE ONLY: In discussion with the [...] Partha Cameron MD Section of Cardiothoracic [place] [address] Date: 09/02/2013 CC: DO Ruben SALES John R, MD [facility] [place] [address] * Miscellaneous - Provider, Scanning - 09/02/2013 12:57 PM EST * Miscellaneous - Provider, Scanning - 09/02/2013 12:57 PM EST documented in this encounter Plan of Treatment Upcoming Encounters Date Type Department Care Team (Late st Contact Info) Description 12/18/2024 2:00 PM EDT Office Visit Dermatology at [address] [phone] Joyce Snyder MD [facility] [place] [address] Scheduled Referrals Name Type Priority Associated Diagnoses Orde r Schedule Referral to Cardiac Rehab Outpatient Referral Routine S/P AVR (aortic valve replacement) and aortoplasty S/P CABG x 2 Ordered: 09/06/2013 documented as of this encounter Procedures Procedure Name Priority Date/Time Associated Diagnosis Comments LAB SCAN 09/07/2013 9:06 AM EST IMPLANTABLE DEVICES SCAN 09/07/2013 9:06 AM EST DIRECTOR OF GROUP COUNSELING PROGRAM SCAN 09/07/2013 9:06 AM EST BASIC METABOLIC [...] SCAN EXT O RDR/RSLT * SCAN DOC: DIRECTOR OF GROUP COUNSELING PROGRAM (09/07/2013 9:06 AM EST) Anatomical Region Laterality Modality Other Narrative 09/07/2013 9:19 AM EST Procedure Note Provider, Scanning - 09/07/2013 9:06 AM EST Scanning Provider MEDIA MGR SCAN EXT O RDR/RSLT * (ABNORMAL) Basic Metabolic Panel (non-fasting) (09/06/2013 5:45 AM EST) [facility] Glucose 107 60 - 199 mg/dL CERNER MILLENNIUM Comment:Diabetes: >=200 mg/d L plus symptoms Blood Urea Nitrogen 44(H) 10 - 20 mg/dL CERNER MILLENNIUM Creatinine 1.36 0.80 - 1.50 mg/dL CERNER MILLENNIUM Comment: Please note that the pediatric reference intervals supplied above were not validated at [facility]. Results from pediatric patients should be interpreted [...] MD CHEMISTRY ORDERABLE S Performing Organization Address [facility] de Phone Number [facility] PlayerProIUM * POCT Glucose (09/05/2013 4:56 PM EST) Glucose, POC 112 60 - 199 mg/dL [facility] Comment: Supplemental ranges: <110 mg/dL before meals <200 mg/dL all other times of the day Blood specimen (specimen) 09/05/2013 4:56 PM EST 09/05/2013 4:56 PM EST Mathew Snell MD POINT OF CARE TEST ORDERABLES Performing Organization Address [facility] Phone Number [facility] * POCT Glucose (09/05/2013 11:37 AM EST) Glucose, POC 100 60 - 199 mg/dL [facility] Comment: Supplemental ranges: <110 mg/dL before meals <200 mg/dL all other times of the day Blood specimen (specimen) 09/05/2013 11:37 AM EST 09/05/2013 11:37 AM EST Mathew Snell MD POINT OF CARE TEST ORDERABLES Performing Organization Address [facility] de Phone Number [facility] * POCT Glucose (09/05/2013 8:01 AM EST) Glucose, POC 117 60 - 199 mg/dL [facility] Comment: Supplemental ranges: <110 mg/dL before meals <200 mg/dL all other times of the day Blood specimen (specimen) 09/05/2013 8:01 AM EST 09/05/2013 8:01 AM EST Mathew Snell MD POINT OF CARE TEST ORDERABLES MARCY MARTINSIUM * POCT Glucose (09/05/2013 4:09 AM EST) Glucose, POC 118 60 - 199 mg/dL CERNER MILLENNIUM Comment: Supplemental ranges: <110 mg/dL before meals <200 mg/dL all other times of the day Blood specimen (specimen) 09/05/2013 4:09 AM EST 09/05/2013 4:09 AM EST Mathew Snell MD POINT OF CARE TEST ORDERABLES Performing Organization Address City/[facility]/ZIP Co de Phone Number MARCY MONZONENNIUM * (ABNORMAL) Differential, Automated (09/05/2013 3:46 AM EST) Neutrophil % 76.6(H) 34.0 - 71.0 % CERNER MILLENNIUM Neutrophil Absolute 7.15(H) 1.50 - 6.30 x10(3)/mc L CERNER MILLENNIUM Lymph % 10.2(L) 19.0 - 53.0 % CERNER MILLENNIUM Lymphocytes Abs 1.0 1.0 - 3.6 x10(3)/mc L CERNER MILLENNIUM Monocyte % 10.7 4.0 - 13.0 % [...] MD HEMATOLOGY ORDERABL ES Performing Organization Address City/[facility] Co de Phone Number CERNER NAENNIUM * (ABNORMAL) CBC (with Diff) (09/05/2013 [...] MD HEMATOLOGY ORDERABL ES Performing Organization Address City/State/[facility] Co de Phone Number MARCY FINCH * (ABNORMAL) Basic Metabolic Panel (non-fasting) (09/05/2013 3:46 AM EST) [facility] Signature Glucose 113 60 - 199 mg/dL CERNER MILLENNIUM Comment:Diabetes: >=200 mg/d L plus symptoms Blood Urea Nitrogen 49(H) 10 - 20 mg/dL CERNER MILLENNIUM Comment:result rechecked-afp Creatinine 1.64(H) 0.80 - 1.50 mg/dL CERNER MILLENNIUM Comment: Please note that the pediatric reference intervals supplied above were not validated at [facility]. Results from pediatric patients should be interpreted [...] MD CHEMISTRY ORDERABLE S Performing Organization Address [facility] de Phone Number [facility] * POCT Glucose (09/04/2013 11:52 PM EST) Glucose, POC 141 60 - 199 mg/dL [facility] Comment: Supplemental ranges: <110 mg/dL before meals <200 mg/dL all other times of the day Blood specimen (specimen) 09/04/2013 11:52 PM EST 09/04/2013 11:52 PM EST Mathew Snell MD POINT OF CARE TEST ORDERABLES Performing Organization Address [facility] Phone Number [facility] * POCT Glucose (09/04/2013 8:37 PM EST) Glucose, POC 123 60 - 199 mg/dL [facility] Comment: Supplemental ranges: <110 mg/dL before meals <200 mg/dL all other times of the day Blood specimen (specimen) 09/04/2013 8:37 PM EST 09/04/2013 8:37 PM EST Mathew Snell MD POINT OF CARE TEST ORDERABLES Performing Organization Address [facility] Phone Number [facility] * POCT Glucose (09/04/2013 5:16 PM EST) Glucose, POC 128 60 - 199 mg/dL [facility] Comment: Supplemental ranges: <110 mg/dL before meals <200 mg/dL all other times of the day Blood specimen (specimen) 09/04/2013 5:16 PM EST 09/04/2013 5:16 PM EST Mathew Snell MD POINT OF CARE TEST ORDERABLES Performing Organization Address [facility] de Phone Number [facility] * XR chest routine PA [...] atelectasis. Small right pleural effusion. Procedure Note Mitali Cao MD - 09/04/2013 Examination CHEST ROUTINE [...] Snell MD POINT OF CARE TEST ORDERABLES [facility] * POCT Glucose (09/04/2013 8:11 AM EST) Glucose, POC 134 60 - 199 mg/dL [facility] Comment: Supplemental ranges: <110 mg/dL before meals <200 mg/dL all other times of the day Blood specimen (specimen) 09/04/2013 8:11 AM EST 09/04/2013 8:11 AM EST Mathew Snell MD POINT OF CARE TEST ORDERABLES Performing Organization Address [facility] Phone Number [facility] * POCT Glucose (09/04/2013 6:14 AM EST) Glucose, POC 147 60 - 199 mg/dL [facility] Comment: Supplemental ranges: <110 mg/dL before meals <200 mg/dL all other times of the day Blood specimen (specimen) 09/04/2013 6:14 AM EST 09/04/2013 6:14 AM EST Mathew Snell MD POINT OF CARE TEST ORDERABLES Performing Organization Address [facility] Phone Number [facility] * POCT Glucose (09/04/2013 4:16 AM EST) Glucose, POC 133 60 - 199 mg/dL [facility] Comment: Supplemental ranges: <110 mg/dL before meals <200 mg/dL all other times of the day Blood specimen (specimen) 09/04/2013 4:16 AM EST 09/04/2013 4:16 AM EST Mathew Snell MD POINT OF CARE TEST ORDERABLES Performing Organization Address [facility] Phone Number [facility] * Potassium (09/04/2013 4:16 AM EST) Potassium [...] MD CHEMISTRY ORDERABLE S Performing Organization Address [facility] de Phone Number [facility] * POCT Glucose (09/04/2013 2:09 AM EST) Glucose, POC 93 60 - 199 mg/dL [facility] Comment: Supplemental ranges: <110 mg/dL before meals <200 mg/dL all other times of the day Blood specimen (specimen) 09/04/2013 2:09 AM EST 09/04/2013 2:09 AM EST Mathew Snell MD POINT OF CARE TEST ORDERABLES Performing Organization Address [facility] Phone Number [facility] * POCT Glucose (09/04/2013 12:26 AM EST) Glucose, POC 131 60 - 199 mg/dL [facility] Comment: Supplemental ranges: <110 mg/dL before meals <200 mg/dL all other times of the day Blood specimen (specimen) 09/04/2013 12:26 AM EST 09/04/2013 12:26 AM EST Mathew Snell MD POINT OF CARE TEST ORDERABLES Performing Organization Address [facility] Phone Number [facility] * POCT Glucose (09/03/2013 9:19 PM EST) Glucose, POC 119 60 - 199 mg/dL [facility] Comment: Supplemental ranges: <110 mg/dL before meals <200 mg/dL all other times of the day Blood specimen (specimen) 09/03/2013 9:19 PM EST 09/03/2013 9:19 PM EST Mathew Snell MD POINT OF CARE TEST ORDERABLES Performing Organization Address [facility] de Phone Number [facility] * POCT Glucose (09/03/2013 5:27 PM EST) Glucose, POC 128 60 - 199 mg/dL [facility] Comment: Supplemental ranges: <110 mg/dL before meals <200 mg/dL all other times of the day Blood specimen (specimen) 09/03/2013 5:27 PM EST 09/03/2013 5:27 PM EST Mathew Snell MD POINT OF CARE TEST ORDERABLES Performing Organization Address [facility] Phone Number [facility] * POCT Glucose (09/03/2013 3:26 PM EST) Glucose, POC 134 60 - 199 mg/dL [facility] Comment: Supplemental ranges: <110 mg/dL before meals <200 mg/dL all other times of the day Blood specimen (specimen) 09/03/2013 3:26 PM EST 09/03/2013 3:26 PM EST Mathew Snell MD POINT OF CARE TEST ORDERABLES Performing Organization Address [facility] Phone Number [facility] * POCT Glucose (09/03/2013 2:22 PM EST) Glucose, POC 127 60 - 199 mg/dL [facility] Comment: Supplemental ranges: <110 mg/dL before meals <200 mg/dL all other times of the day Blood specimen (specimen) 09/03/2013 2:22 PM EST 09/03/2013 2:22 PM EST Mathew Snell MD POINT OF CARE TEST ORDERABLES Performing Organization Address [facility] Phone Number [facility] * Potassium (09/03/2013 2:05 PM EST) Potassium [...] MD CHEMISTRY ORDERABLE S Performing Organization Address [facility] de Phone Number [facility] * POCT Glucose (09/03/2013 11:48 AM EST) Glucose, POC 113 60 - 199 mg/dL [facility] Comment: Supplemental ranges: <110 mg/dL before meals <200 mg/dL all other times of the day Blood specimen (specimen) 09/03/2013 11:48 AM EST 09/03/2013 11:48 AM EST Mathew Snell MD POINT OF CARE TEST ORDERABLES Performing Organization Address [facility] Phone Number [facility] * POCT Glucose (09/03/2013 10:42 AM EST) Glucose, POC 125 60 - 199 mg/dL [facility] Comment: Supplemental ranges: <110 mg/dL before meals <200 mg/dL all other times of the day Blood specimen (specimen) 09/03/2013 10:42 AM EST 09/03/2013 10:42 AM EST Mathew Snell MD POINT OF CARE TEST ORDERABLES Performing Organization Address [facility] Co de Phone Number [facility] * POCT Glucose (09/03/2013 7:44 AM EST) Glucose, POC 141 60 - 199 mg/dL [facility] Comment: Supplemental ranges: <110 mg/dL before meals <200 mg/dL all other times of the day Blood specimen (specimen) 09/03/2013 7:44 AM EST 09/03/2013 7:44 AM EST Mathew Snell MD POINT OF CARE TEST ORDERABLES Performing Organization Address [facility] Co de Phone Number [facility] * POCT Glucose (09/03/2013 6:04 AM EST) Glucose, POC 137 60 - 199 mg/dL [facility] Comment: Supplemental ranges: <110 mg/dL before meals <200 mg/dL all other times of the day Blood specimen (specimen) 09/03/2013 6:04 AM EST 09/03/2013 6:04 AM EST Mathew Snell MD POINT OF CARE TEST ORDERABLES [facility] * POCT Glucose (09/03/2013 4:11 AM EST) Glucose, POC 153 60 - 199 mg/dL [facility] Comment: Supplemental ranges: <110 mg/dL before meals <200 mg/dL all other times of the day Blood specimen (specimen) 09/03/2013 4:11 AM EST 09/03/2013 4:11 AM EST Mathew Snell MD POINT OF CARE TEST ORDERABLES Performing Organization Address City/[facility] Co de Phone Number [facility] * (ABNORMAL) Differential, Automated (09/03/2013 4:00 AM EST) Neutrophil % 83.3(H) 34.0 - 71.0 % [facility] MILLENNIUM Neutrophil Absolute 6.20 1.50 - 6.30 x10(3)/mc L CERNER MILLENNIUM Lymph % 7.9(L) 19.0 - 53.0 % [...] EST Mathew Snell MD HEMATOLOGY ORDERABL ES [facility] * (ABNORMAL) Cardiac Enzymes (09/03/2013 4:00 AM EST) Troponin-T 1.16(H) <=0.03 ng/mL [facility] MILLENNIUM Comment: 0.03 ng/mL: Represents the 99th percentile upper reference limit for normals. >0.03 ng/mL: Elevated cardiac troponin T level indicative of myocardial damage. Diagnosis of acute, evolving or recent NC requires a typical rise and gradual fall [...] consensus document of the Joint Society of Cardiology/[place] [employer] Committee for the redefinition of myocardial infarction. ??Journal of the [place] College of Cardiology 2000; 36: 959-969] Creatine Kinase 655(H) 0 - 200 unit/L CERNER MILLENNIUM Blood specimen (specimen) 09/03/2013 4:00 AM EST 09/03/2013 4:20 AM EST Narrative Resulting Agency Comment Spec In Lab Mathew Snell MD CHEMISTRY ORDERABLE S Performing Organization Address [facility] de Phone Number [facility] * Potassium (09/03/2013 4:00 AM EST) Potassium 3.8 3.5 - 5.0 mmol/L [facility] Comment: [...] MD CHEMISTRY ORDERABLE S Performing Organization Address [facility] de Phone Number [facility] * (ABNORMAL) Glucose, fasting (09/03/2013 4:00 AM EST) Glucose Fasting 153(H) 65 - 99 mg/dL [facility] Comment: ?Fasting* Glucose Interpretive Criteria Normal ?65-99 [...] of Diabetes Mellitus, Position Statement from the [place] Diabetes Association. ??Diabetes Care, Volume 33, Supplement 1, Sep 2009 Blood specimen (specimen) 09/03/2013 4:00 AM EST 09/03/2013 4:20 AM EST Narrative Resulting Agency Comment Spec In Lab Mathew Snell MD CHEMISTRY ORDERABLE S Performing Organization Address [facility] Co de Phone Number [facility] * Creatinine (09/03/2013 4:00 AM EST) Creatinine 1.04 0.80 - 1.50 mg/dL [facility] Comment: Please note that the pediatric reference intervals supplied above were not validated at [facility]. Results from pediatric patients should be interpreted in conjunction to the patient's age, height and muscle mass. Est Glomerular Filtration Rate >60 >=60 [facility] Comment: This estimated GFR (eGFR) value was [...] MD CHEMISTRY ORDERABLE S Performing Organization Address [facility] de Phone Number [facility] * BUN (09/03/2013 4:00 AM EST) Blood Urea Nitrogen 16 10 - 20 mg/dL [facility] Blood specimen (specimen) 09/03/2013 4:00 AM EST 09/03/2013 4:20 AM EST Narrative Resulting Agency Comment Spec In Lab Mathew Snell MD CHEMISTRY ORDERABLE S Performing Organization Address [facility] Co de Phone Number [facility] * (ABNORMAL) CBC (with Diff) (09/03/2013 4:00 [...] MILLENNIUM * (ABNORMAL) BLOOD GAS 2 ARTERIAL (09/03/2013 2:03 AM EST) pH, Arterial 7.37 CERNER MILLENNIUM PCO2, Arterial 47(H) mmHg CERNE R MILLENNIUM PO2, Arterial 70(L) mmHg CERNER MILLENNIUM Bicarbonate, Arterial 26.1(H) mmol/L CERN[facility] MILLENNIUM Base Excess, Arterial 0.8 mmol/L [facility] MILLENNIUM Hgb Blood Gas 12.1(L) gm/dL [facility] MILLENNIUM Comment: Total Hemoglobin (in gm/dL) ?Based on [facility] Hematology ranges: ?Age ?Reference Range Less than [...] OF CARE TEST ORDERABLES Performing Organization Address [facility] Co de Phone Number [facility] * POCT Glucose (09/03/2013 12:58 AM EST) Glucose, POC 110 60 - 199 mg/dL [facility] Comment: Supplemental ranges: <110 mg/dL before meals <200 mg/dL all other times of the day Blood specimen (specimen) 09/03/2013 12:58 AM EST 09/03/2013 12:58 AM EST Mathew Snell MD POINT OF CARE TEST ORDERABLES Performing Organization Address [facility] Phone Number [facility] * POCT Glucose (09/03/2013 12:09 AM EST) Glucose, POC 109 60 - 199 mg/dL [facility] Comment: Supplemental ranges: <110 mg/dL before meals <200 mg/dL all other times of the day Blood specimen (specimen) 09/03/2013 12:09 AM EST 09/03/2013 12:09 AM EST Mathew Snell MD POINT OF CARE TEST ORDERABLES Performing Organization Address [facility] de Phone Number [facility] * POCT Glucose (09/02/2013 11:12 PM EST) Glucose, POC 128 60 - 199 mg/dL [facility] Comment: Supplemental ranges: <110 mg/dL before meals <200 mg/dL all other times of the day Blood specimen (specimen) 09/02/2013 11:12 PM EST 09/02/2013 11:12 PM EST Mathew Snell MD POINT OF CARE TEST ORDERABLES Performing Organization Address [facility] Co de Phone Number [facility] * (ABNORMAL) Hemoglobin (09/02/2013 11:00 PM EST) Hemoglobin 12.2(L) 13.7 - 17.5 gm/dL [facility] Comment: Called by: [facility], Read back by: STEVE FIGUEROA, Date-Time: 09-02-13 23:45 LAST HGB WAS WHEN PATIENT WAS IN THE OR. NURSE CHRISTOPH OK TO ENTER. Called by: [facility], Read back by: STEVE FIGUEROA, Date-Time: 09-02-13. LAST HGB WAS WHEN PATIENT WAS IN THE OR. NURSE CHRISTOPH OK TO ENTER. Corrected from 12.2 gm/dL [LOW] on 09/02/13 11:47 by Valorie Bower Blood specimen (specimen) 09/02/2013 11:00 PM EST 09/02/2013 11:20 PM EST Narrative Resulting Agency Comment Spec In Lab Mathew Snell MD HEMATOLOGY ORDERABL ES Performing Organization Address [facility] de Phone Number [facility] * Potassium [...] MD CHEMISTRY ORDERABLE S Performing Organization Address [facility] de Phone Number [facility] * POCT Glucose (09/02/2013 10:01 PM EST) Glucose, POC 125 60 - 199 mg/dL [facility] Comment: Supplemental ranges: <110 mg/dL before meals <200 mg/dL all other times of the day Blood specimen (specimen) 09/02/2013 10:01 PM EST 09/02/2013 10:01 PM EST Mathew Snell MD POINT OF CARE TEST ORDERABLES MARCY FINCH * XR chest PA or AP- 1 view (09/02/2013 7:43 PM EST) Anatomical Region Laterality Modality Chest N/A Radiographic Patricia ging 09/02/2013 7:43 PM EST Narrative 09/03/2013 8:46 AM EST Examination CHEST AP/XPORT Clinical History ETT and [place] placement Comparison Chest radiograph 06/29/2008. Technique Portable [...] Examination CHEST AP/XPORT Clinical History ETT and [place] placement Comparison Chest radiograph 06/29/2008. Technique Portable [...] and small pleural effusion. Mathew Snell MD G DX ORDERABLES * (ABNORMAL) BLOOD GAS 2 ARTERIAL (09/02/2013 7:26 PM EST) [facility] Signature pH, Arterial 7.36 7.35 - 7.45 CERNER MILLENNIUM PCO2, Arterial 46(H) 35 - 45 mmHg CERNER MILLENNIUM PO2, Arterial 150(H) 85 - 104 mmHg CERNER MILLENNIUM Bicarbonate, Arterial 25.4 20.0 - 26.0 mmol/L CERNER MILLENNIUM Base Excess, Arterial -0.1 -3.0 - 3.0 mmol/L CERNER MILLENNIUM Hgb Blood Gas 12.9(L) 13.7 - 17.5 gm/dL CERN[facility] MILLENNIUM Comment: Total Hemoglobin (in gm/dL) ?Based on [facility] Hematology ranges: ?Age ?Reference Range Less than [...] Comment: Total Hemoglobin (in gm/dL) ?Based on [facility] Hematology ranges: ?Age ?Reference Range Less than [...] Absolute 0.03 0.00 - 0.05 x10(3)/mc L [facility] Blood specimen (specimen) 09/02/2013 6:00 PM EST 09/02/2013 6:11 PM EST Mathew Snell MD HEMATOLOGY ORDERABL ES Performing Organization Address [facility] Phone Number [facility] * (ABNORMAL) Thrombin time (09/02/2013 6:00 PM EST) Thrombin Time 24(H) 15 - 20 sec [facility] Blood specimen (specimen) 09/02/2013 6:00 PM EST 09/02/2013 6:12 PM EST Narrative Resulting Agency Comment Spec In Lab Mathew Snell MD HEMATOLOGY ORDERABL ES Performing Organization Address [facility] de Phone Number [facility] * (ABNORMAL) Fibrinogen (09/02/2013 6:00 PM EST) Fibrinogen 153(L) 175 - 450 mg/dL [facility] Blood specimen (specimen) 09/02/2013 6:00 PM EST 09/02/2013 6:12 PM EST Narrative Resulting Agency Comment Spec In Lab Mathew Snell MD HEMATOLOGY ORDERABL ES Performing Organization Address [facility] de Phone Number [facility] * APTT (09/02/2013 6:00 PM EST) Partial Thromboplastin Time 34 25 - 35 sec [facility] Comment: Called by: ADELE, Read back by: MANDEEP LU, Date/Time:_09/02/13 18:35. Recommended therapeutic PTT range for full dose unfractionated heparin is 80-114 seconds. Blood specimen (specimen) 09/02/2013 6:00 PM EST 09/02/2013 6:12 PM EST Narrative Resulting Agency Comment Spec In Lab Mathew Snell MD HEMATOLOGY ORDERABL ES Performing Organization Address [facility]/ZIP Co de Phone Number [facility] * (ABNORMAL) Prothrombin Time (09/02/2013 6:00 PM EST) Prothrombin Time 19.5(H) 12.0 - 15.0 sec CERNER MILLENNIUM Comment: [facility] Transfusion Committee Guidelines: INR less than 2.0, PTT less than OR equal to 43.5 seconds, or Fibrinogen greater than or equal to 100 mg/dl indicate adequate procoagulant activity for hemostasis in patients without underlying bleeding disorders. International Normalization Ratio 1.6(H) 0.9 - 1.1 CERNER MILLENNIUM Blood specimen (specimen) 09/02/2013 6:00 PM EST 09/02/2013 6:12 PM EST Narrative Resulting Agency Comment Spec In Lab Mathew Snell MD HEMATOLOGY ORDERABL ES Performing Organization Address [facility] Co de Phone Number [facility] * (ABNORMAL) CBC (with Diff) (09/02/2013 6:00 [...] Comment: Total Hemoglobin (in gm/dL) ?Based on [facility] Hematology ranges: ?Age ?Reference Range Less than [...] Comment: Total Hemoglobin (in gm/dL) ?Based on [facility] Hematology ranges: ?Age ?Reference Range Less than [...] Comment: Total Hemoglobin (in gm/dL) ?Based on [facility] Hematology ranges: ?Age ?Reference Range Less than [...] OF CARE TEST ORDERABLES Performing Organization Address [facility] de Phone Number [facility] * (ABNORMAL) Fibrinogen (09/02/2013 4:30 PM EST) Fibrinogen 151(L) 175 - 450 mg/dL [facility] MILLENNIUM Comment:Called by: [facility], Read back by: AMBER DE LA GARZA (OR 18), Date/Time:09/02/13 16:57. Blood specimen (specimen) 09/02/2013 4:30 PM EST 09/02/2013 4:40 PM EST Narrative Resulting Agency Comment Spec In Lab Mathew Snell MD HEMATOLOGY ORDERABL ES Performing Organization Address [facility] Co de Phone Number [facility] * Platelet count (09/02/2013 4:30 PM EST) [...] Comment: Total Hemoglobin (in gm/dL) ?Based on [facility] Hematology ranges: ?Age ?Reference Range Less than [...] MD POINT OF CARE TEST ORDERABLES [facility] FIN[facility] * Surgical Pathology Report (09/02/2013 3:50 PM EST) Surgical Pathology Report ? [facility] ? Provider: ?? MATHEW SNELL ??Pt. Name: ?? IRVING ACOSTA ? Acc #: ?[id number] ?Pt. ? Col Date: ?? 09/02/2013 ?/Sex: [...] leaflets with nodular calcifications. ? Sections/Processi ng: Strike Out Machine Operator sections are submitted in cassette A1. ? Blocks submitted for decalcification: A1.(R1) ??kjp ? ---Clinical Information--- ? Specimen Submitted: ? A - Aortic valve/leaflets ? Clinical History: ? Clinical Diagnosis: ? same MARCY FINCH 09/02/2013 3:50 PM EST Mathew Snell MD PATHOLOGY/CYTOLOGY ORDERABLES Performing Organization Address City/State/[facility] Co de Phone Number MARCY FINCH * Specimen to Pathology (surgical or derm) (09/02/2013 3:50 PM EST) AP Specimen 09/02/2013 3:50 PM EST 09/02/2013 3:50 PM EST Narrative MARCY FINCH - 09/02/2013 3:50 PM EST Specimen requisition ordered. ??Separate Pathology report to follow Mathew Snell MD PATHOLOGY/CYTOLOGY ORDERABLES [facility]ENNI[facility] * (ABNORMAL) BLOOD GAS 2 ARTERIAL (09/02/2013 3:34 PM EST) pH, Arterial 7.42 CERNER MILLENNIUM PCO2, Arterial 37 mmHg CERNE R MILLENNIUM PO2, Arterial 445(H) mmHg CERNER MILLENNIUM Bicarbonate, Arterial 23.8 mmol/L CERNER MILLENNIUM Base Excess, Arterial -0.7 mmol/L CERNER MILLENNIUM Hgb Blood Gas 9.2(L) gm/dL CERNER MILLENNIUM Comment: Total Hemoglobin (in gm/dL) ?Based on [facility] Hematology ranges: ?Age ?Reference Range Less than [...] Comment: Total Hemoglobin (in gm/dL) ?Based on [facility] Hematology ranges: ?Age ?Reference Range Less than [...] ionized calcium. CL Whole Blood 105 mmol/L CERNE R MILLENNIUM Gluc Whole Bld 108 mg/dL [facility]ER[facility] R MILLENNIUM Comment:Diabetes: >=200 mg/d L plus symptoms. Blood specimen (specimen) 09/02/2013 2:13 PM EST 09/02/2013 2:13 PM EST Mathew Snell MD POINT OF CARE TEST ORDERABLES [facility] MILLENNIUM * Prepare RBC (09/02/2013 12:55 PM EST) Dispensed? Yes MARCY FINCH Blood specimen (specimen) 09/02/2013 12:55 PM EST 09/02/2013 12:54 PM EST Mathew Snell MD BLOOD BANK PRODUCT ORDERABLES MARCY FINCH documented in this encounter Visit Diagnoses Diagnosis (aortic stenosis) Aortic valve disorders S/P AVR (aortic valve replacement) and aortoplasty Heart valve replaced by other means S/P CABG x 2 Postsurgical aortocoronary bypass status (aortic stenosis) Aortic valve disorders documented in this encounter Administered Medications Inactive Administered Medications - up to 3 most recent administrations Medication Order MAR Action Action Date Dose Rate Site calcium chloride injection ONCE PRN, Starting on Sun09/02/13 at 1726, Until Sun09/02/13 at 1920, Intra-Operative (Intra-Procedure) Given 09/02/2013 5:26 PM EST 1 g cardioplegic solution (PLEGISOL) induction solution ONCE PRN, Starting on Sun09/02/13 at 1528, Until Sun09/02/13 at 1920, Intra-Operative (Intra-Procedure) Given 09/02/2013 3:28 PM EST 300 mLs cardioplegic solution (PLEGISOL) maintenance solution ONCE PRN, Starting on Sun09/02/13 at 1719, Until Sun09/02/13 at 1920, Intra-Operative (Intra-Procedure) Given 09/02/2013 5:19 PM EST 660 mLs cardioplegic solution (PLEGISOL) reperfusion solution ONCE PRN, Starting on Sun09/02/13 at 1725, Until Sun09/02/13 at 1920, Intra-Operative (Intra-Procedure) Given 09/02/2013 5:25 PM EST 140 mLs ceFURoxime (ZINACEF) injection 1.5 g Administer over 60 Minutes, ONCE PRN, Starting on Sun09/02/13 at 1514, Until Sun09/02/13 at 1920, Attach to 100mL of sodium chloride 0.9% Mini-Bag Plus, Intra-Operative (Intra-Procedure), Routine Given 09/02/2013 3:14 PM EST 1 g electrolyte-R (PH 7.4) (NORMOSOL) injection CONTINUOUS PRN, Starting on Sun09/02/13 at 1740, Until Sun09/02/13 at 1920, Intra-Operative (Intra-Procedure) New Bag 09/02/2013 5:40 PM EST 2.8 L gelatin adsorbable 100 (GELFOAM) sponge ONCE PRN, Starting on Sun09/02/13 at 1737, Until Sun09/02/13 at 1920, Intra-Operative (Intra-Procedure), Routine Given 09/02/2013 5:37 PM EST 1 each 19- Surgical Site gentamicin (GARAMYCIN) injection ONCE PRN, Starting on Sun09/02/13 at 1446, Until Sun09/02/13 at 1920, Intra-Operative (Intra-Procedure), Routine Given 09/02/2013 2:46 PM EST 160 mg 19- Surgical Site heparin (porcine) injection ONCE PRN, Starting on Sun09/02/13 at 1514, Until Sun09/02/13 at 1920, Intra-Operative (Intra-Procedure), Routine Given 09/02/2013 4:38 PM EST 10,000 Units Given 09/02/2013 3:38 PM EST 15,000 Units Given 09/02/2013 3:14 PM EST 5,000 Units Lidocaine (PF) 20 mg/mL (2 %) ONCE PRN, Starting on Sun09/02/13 at 1726, Until Sun09/02/13 at 1920, Intra-Operative (Intra-Procedure), Routine Given 09/02/2013 5:26 PM EST 200 mg magnesium sulfate 4 mEq/mL (50 %) injection ONCE PRN, Starting on Sun09/02/13 at 1726, Until Sun09/02/13 at 1920, Intra-Operative (Intra-Procedure), Routine Given 09/02/2013 5:26 PM EST 2 g mannitol (50 grams and over) 100 g/500 mL (20%) infusion ONCE PRN, Starting on Sun09/02/13 at 1720, Until Sun09/02/13 at 1920, Intra-Operative (Intra-Procedure) Given 09/02/2013 5:20 PM EST 100 g thrombin (bovine) (THROMBINAR) kit ONCE PRN, Starting on Sun09/02/13 at 1737, Until Sun09/02/13 at 1920, Intra-Operative (Intra-Procedure) Given 09/02/2013 5:37 PM EST 20,000 Units 19- Surgical Site vancomycin (VANCOCIN) injection ONCE PRN, Starting on Sun09/02/13 at 1447, Until Sun09/02/13 at 1920, Intra-Operative (Intra-Procedure), Routine Given 09/02/2013 2:47 PM EST 1 g 19- Surgical Site verapamil (ISOPTIN) injection ONCE PRN, Starting on Sun09/02/13 at 1448, Until Sun09/02/13 at 1920, Administer over 2 Minutes, Intra-Operative (Intra-Procedure) Given 09/02/2013 2:48 PM EST 5 mg 19- Surgical Site documented in this encounter Active and Recently [...] Brynn Alba RN)1229 (Given - Provider: Peggy Hayes RN)1818 (Given - Provider: Jimena Olivier, JULIA)2358 (Given - Provider: Radha Watt, JULIA) 0519 (Given - Provider: Radha Watt RN)1201 (Given - Provider: Erica Russell, JULIA)1814 (Given - Provider: Erica Russell, JULIA) 0000 (Given - Provider: Chayito Hinds, JULIA)0623 (Given - Provider: Chayito Hinds, JULIA)1200 (Given - Provider: Ruma Brady RN) aspirin chewable tablet 81 mg (CANCELED)(Linked Group 1) 81 mg, Oral, DAILY, First dose on Sun09/03/13 at 0900, Until Discontinued, Start on post-op day 1 in the AM., Routine 0900 (Given - Provider: Rafael Ho RN) 0931 (Given - Provider: Erica Russell RN) 0900 (Given - Provider: Ruma Brady, JULIA) chlorhexidine (PERIDEX) 0.12 % oral solution 15 mL (CANCELED) 15 mL, Oral, EVERY 12 HOURS SCHEDULED (2 times per day), First dose on Sun09/02/13 at 2100, Until Discontinued, [place] teeth., Routine 0900 (Given - Provider: Rafael oH RN)2099 (Not Given - Provider: Radha Watt RN - Reason: Contraindicated) 09 (Given - Provider: Erica Russell RN)2100 (Given - Provider: Chayito Hinds RN) 0900 [...] Russell RN) 09 (Given - Provider: Ruma Brady, JULIA) fenofibrate micronized (LOFIBRA) capsule 134 mg (CANCELED) 134 mg, Oral, DAILY WITH BREAKFAST, First dose on Sun09/03/13 at 0900, Until Discontinued, Routine 0800 (Given - Provider: Rafael Ho RN) 0931 (Given - Provider: Erica Russell RN) 08 (Given - Provider: Ruma Brady RN) furosemide (LASIX) injection 40 mg (CANCELED) 40 mg, Intravenous, 2 TIMES DAILY, First dose (after last modification) on Sun09/04/13 at 0900, Until Discontinued 0900 (Given - Provider: Rafael Ho RN)1818 (Given - Provider: Jimena Olivier, JULIA) 0931 (Given - Provider: Erica Russell, JULIA)1814 (Given - Provider: Erica Russell RN) 0900 [...] Provider: Brynn Alba, JULIA)1230 (Given - Provider: ePggy Hayes RN)1814 (Given - Provider: Jimena Olivier RN) magnesium hydroxide (MILK OF MAGNESIA) oral suspension 10 mL 10 mL, Oral, DAILY, First dose on Sun09/04/13 at 0900, Until Discontinued, Post-op day 2. Do not use with renal insufficiency., Routine 09 (Given - Provider: Rafael Ho, JULIA) 0931 (Not Given - Provider: Erica Russell RN - Reason: See comment - Comment: pt had loos bm this am) 0900 (Given - Provider: Ruma Brady RN) metolazone (ZAROXOLYN) tablet 5 mg (COMPLETED) 5 mg, Oral, ONCE, 1 dose, On Sun09/05/13 at 1100, Routine 120 (Given - Provider: Erica Russell RN) metoprolol (LOPRESSOR) tablet 12.5 mg 12.5 mg, Oral, EVERY 12 HOURS SCHEDULED (2 times per day), First dose (after last modification) on Sun09/04/13 at 2100, Until Discontinued, Hold for HR<50, SBP<90, Routine 2031 (Given - Provider: Radha Watt RN) 930 (Given - Provider: Erica Russell RN)2058 (Given - Provider: Chayito Hinds RN) 0900 (Given - Provider: Ruma Brady RN) potassium chloride (K-DUR/KLOR-CON) extended release tablet 20 mEq 20 mEq, Oral, 2 TIMES DAILY, First dose on Sun09/04/13 at 1100, Until Discontinued, Routine 1230 (Given - Provider: Peggy Hayes RN)2031 (Given - Provider: Radha Watt RN) 09 (Given - Provider: Erica Russell, JULIA)2099 (Given - Provider: Chayito Hinds RN) 0900 (Given - Provider: Ruma Brady RN) senna-docusate (PERICOLACE) 8.6-50 mg per tablet 2 tablet 2 tablet, Oral, DAILY, First dose on Sun09/03/13 at 2100, Until Discontinued, Post-op day 1, Routine 2100 (Not Given - Provider: Radha Watt RN - Reason: Contraindicated) 2099 (Not Given - Provider: Chayito Hinds RN - Reason: Patient/family refused) sodium chloride 0.9 % flush 5 mL (CANCELED) 5 mL, Intravenous, EVERY 8 HOURS, First dose on Sun09/04/13 at 1100, Until Discontinued, Routine 1042 (Given - Provider: Peggy Hayes, RN)1818 (Given - Provider: Jimena Olivier, RN) 0300 (Given - Provider: Radha Watt, RN)1201 (Given - Provider: Erica Russell, RN)1814 (Given - Provider: Erica Russell, RN) 0300 (Given - Provider: Chayito Hinds RN)1100 (Not Given - Provider: Ruam Brady RN - Reason: Loss of access) [...] Routine documented in this encounter Care Teams Perioperative Nurse Relationship Specialty Start Date End Date Macario Hernandez DO [address] [place] [address] [address] [facility] [address] [place] [address] PCP - General 08/16/10 02/25/23 documented as of this encounter
--- OUTSIDE RECORDS SUMMARY | 2024-09-23 14:23 | XMS_ITS | Encounter Summary ---
Author Organization [place] [address] Care Team Providers Care Casino Investigator Name Role Phone Carlos Hernandez DO Primary Care Provider Encounter Details Date Type Department Care Team (Late st Contact Info) Description 09/08/2013 Telephone [place] [address] Michael Read PA Social History Tobacco Use Types Packs/Day Years [...] encounter Miscellaneous Notes * Telephone Encounter - Michael Read PA - 09/08/2013 12:10 PM EST Called this AM by Mr. RosenthalPardeep GUZMÁN. He has a fever 101 F and is nauseous. He reports coughing white phlegm and shortness of breath. He is also having loose stools. He just feels worse than when he was discharged. Vitals relayed as BP 160/78 prior to meds as he was too nauseous to take them, HR 66, 92-94% RA. He declined coming into clinic at [facility] due to the distance. I arranged for him to be seen by his PCP but in the meantime he had started to wretch and was anxious so he felt better going to the ED. Mr. Rosenthal was to be seen this Sunday for a chest x-ray to follow-up on a left pleural effusion. He and his will present his d/c summary upon arrival and the VN is arranging for the ED to call us. documented in this encounter Plan of Treatment Upcoming Encounters Date Type Department Care Team (Late st Contact Info) Description 12/18/2024 2:00 PM EDT Office Visit Dermatology at [facility] [address] [place] [address] Joyce Snyder MD [facility] [place] [address] documented as of this encounter Visit Diagnoses Not on filedocumented in this encounter Care Teams Casino Investigator Relationship Specialty Start Date End Date Carlos Hernandez DO [address] [place] [address] PCP - General 08/16/10 02/25/23 documented as of this encounter
--- OUTSIDE RECORDS SUMMARY | 2024-09-23 14:23 | XMS_ITS | Encounter Summary ---
Author Organization [facility] [place] [address] Care Team Providers Care Digital Assistant Name Role Phone Carlos Hernandez DO Primary Care Provider [phone] Encounter Details Date Type Department Care Team (Late st Contact Info) Description 09/02/2013 1:28 PM EST Anesthesia Event [place] [phone] Birgit Llamas MD Peters, Julia C, MD [facility] [place] [address] Anesthesia Record Procedure Summary Procedure Name Responsible Anesthesiologist Anesthesia Start Time Anesthesia Stop Time @REPLACE AORTIC VALVE, OPEN, W\CPB, W\PROSTHETIC VALVE (WRVU 41.32) (Chest) Birgit Llamas MD 09/02/13 1328 09/02/13 1905 Events Date Time Event Comment 09/02/2013 1302 1328 AN Verify 1328 Start 1328 An Start Data 1341 An Induction 1345 An Intubation 1345 ODILIA PROBE ONLY 1401 Anesthesia Ready 1422 Procedure Start 1424 Sternotomy 1514 CV Bypass init 1522 An Clamp start 1722 Screenplay Writer 1744 CP Bypass Ended 1816 Chest Closed 1848 an stop data 1905 Stop Meds Name Total Midazolam 15 mg fentaNYL 1,000 mcg vecuronium 20 mg heparin 41,000 Units protamine 250 mg insulin regular human (HUMUL IN;NOVOLIN) 150 Units in sodium chloride 0.9% 150 mL infusion 11.33 Units succinylcholine 200 mg tranexamic acid (TXA) 1,360 mg tranexamic acid INF (TXA) 687.04 mg PHENYLephrine INF 9,500 mcg ceFURoxime 3 g vancomycin 1 g Vasopressin INF 3.8 Units sodium chloride 0.9% 0 mL lactated ringers 0 mL * Agents Name O2 Air Isoflurane (et) * Blood No blood administrations on file. Lines, Drains, and Airways Type Details Placement Removal Urethral Catheter 09/02/13 (Placed eas jordan by JULIA De La Garza: clear urine return, foreskin rep); indwelling catheter w/ core temperature probe; 100% silicone; 16; inserted; 1; drainage bag to dependent drainage; 09/04/13 09/02/13 0000 by Mary Ann De La Garza RN 09/04/13 0000 by Xiomara Ricketts RN Incision 09/02/13; chest; 05/22/22 (LDA cleanup utility RA#[id number]); 1715 (LDA cleanup utility RA#[id number]) 09/02/13 0000 by Mary Ann eD La Garza RN 05/22/22 1715 by Lindsey Kilpatrick Incision 09/02/13 (Incision a nd stab: right leg for EVH); leg; 05/22/22 (LDA cleanup utility RA#[id number]); 1715 (LDA cleanup utility RA#[id number]) 09/02/13 0000 by Mary Ann De La Garza RN 05/22/22 1715 by Lindsey Kilpatrick Drain/Device Site 09/02/13 (#7JP drain to bulb; right leg for EVH); Right; leg; 09/03/13; 0555 09/02/13 0000 by Mary Ann De La Garza RN 09/03/13 0555 by Char Chris RN (RETIRED) Peripheral IV Line - Single Lumen 09/02/13; 1133; 09/06/13; 1221 09/02/13 1133 by Rachelle Posey RN 09/06/13 1221 by Ruma Brady RN Pulmonary Artery Catheter - Single Lumen 09/02/13; 1243; 09/03/13; 0420 09/02/13 1243 by Char Chris RN 09/03/13 0420 by Char Chris RN (RETIRED) Arterial LIne 09/02/13; 1341; 09/04/13; 0848 09/02/13 1341 by Christen Guerrero MD 09/04/13 0848 by Rafael Ho RN (RETIRED) Central Line Assessment/Interventio n - single lumen 9 Fr; Right; Internal Jugular 09/02/13 1345 by Christen Guerrero MD 09/04/13 0847 by Rafael Ho RN (RETIRED) Non-Surgical Airway Mask Ventilation: Adjunct (2); ETT Type: Cuffed; ETT Size: 8 mm; Oral Airway: 100 mm (5); Removal Date: 09/03/13; Removal Time: 0234 09/02/13 1345 by Christen Guerrero MD 09/03/13 0234 by Lindsay Mora RCP Chest Tube 09/02/13; 1726; 09/03/13; 1233 09/02/13 1726 by Rosemarie Mccarthy RN 09/03/13 1233 by Lesvia Cross RN Chest Tube 09/02/13; 1804; 09/03/13; 1233 09/02/13 1804 by Rosemarie Mccarthy RN 09/03/13 1233 by Lesvia Cross RN documented in this encounter Social History [...] on file documented as of this encounter OR Notes * Anesthesia Postprocedure Evaluation - Birgit Llamas MD - 09/04/2013 2:14 PM EST Patient: Raghu Rosenthal Procedure(s) Performed: Procedure(s): @REPLACE AORTIC VALVE, W\CPB, W\PROSTHETIC VALVE ENDOSCOPIC HARVEST VEIN(S) FOR CABG @CABG, USING ARTERIAL GRAFT;SINGLE ARTERIAL GRAFT @CABG, VENOUS & ARTERIAL GRAFT;SINGLE VEIN GRAFT @AORTOPLASTY FOR SUPRAVALVULAR STENOSIS Actual Anesthetic: general Patient location: [facility] Post-op pain: Adequate analgesia Post-op nausea: no nausea or vomiting Last Vitals: Filed Vitals: 09/04/13 1228 BP: 107/36 Pulse: 53 Temp: 37 ??C (98.6 ??F) Resp: 20 Post-op cardiovascular and respiratory status: is stable Level of consciousness: awake, alert and oriented Complications: no apparent complications and tolerated the procedure well Fluid Status: normal * Anesthesia Preprocedure Evaluation - Birgit Llamas MD - 09/01/2013 3:16 PM EST Pre-Anesthesia Evaluation for: Raghu Rosenthal a 68 y.o. male. Procedure(s): @REPLACE AORTIC VALVE, W\CPB, W\PROSTHETIC VALVE @CABG, TWO VENOUS GRAFTS & ARTERIAL GRAFT ENDOSCOPIC HARVEST VEIN(S) FOR CABG Patient Active Problem List Diagnosis ??? (aortic stenosis) Aortic valve area 1.1 cm? Obesity ??? HTN (hypertension) ??? Hyperlipidemia ??? GERD (gastroesophageal reflux disease) ??? Sleep apnea ??? Former smoker ??? S/P prosthetic total arthroplasty of the hip ??? Subarachnoid hemorrhage 2006 ??? Fatty liver ??? Pancreatitis 11/05 Possible gallstone pancreatitis. ??? Cholelithiasis USG 11/05 ??? Diverticulitis 2004, 2005 S/p surgery ??? Abdominal panniculus S/p panniculectomy ??? Psoriasis ??? Depression No past medical history on file. No past surgical history on file. History Substance Use Topics ??? Smoking status: Former Smoker Quit date: 01/09/2001 ??? Smokeless tobacco: Never Used ??? Alcohol Use: Yes SOCIAL History Drug Use No Allergies Allergen Reactions ??? Vicodin (Hydrocodone-Acetaminophen) Shortness Of Breath Problems breathing ??? Morphine Sulfate Nausea And Vomiting ??? Bee Venom (Honey Bee) ??? Clarithromycin ??? Hydrocodone Bit ??? Indomethacin ??? Lansoprazole ??? Lipitor (Atorvastatin) Joint pain ??? Other (Unclassified Drug) IV dyes ??? Pravastatin Sodium ??? Prednisone ??? Tetracyclines Medications: MAR and/or home medications have been reviewed. Physical Exam: There were no vitals filed for this visit. There is no height or weight on file to calculate BMI. Airway Assessment: Mallampati: II TM distance: >3 FB Neck ROM: full Gr1 with glide Cardiovascular Assessment: Rhythm: regular Pulmonary Assessment: Dental Assessment: - normal exam Misc Assessment: Other exam findings: Dobutamine stress echo is negative for ischemia at this level of stress. Of note, the patient has moderate to severe aortic stenosis. 2. Maximum heart rate achieved was 134 bpm, which is 87% of the maximum (154 beats/min). The target heart rate was achieved. The peak dose of Dobutamine infused was 40 ug/kg/min and 0.50 mg of Atropine. The patient reported 5/10 chest pressure with stress and mild jaw discomfort. 3. Echo (rest): Technically difficult images. Intravenous contrast was not administered due to a history of adverse reaction. Left ventricular chamber size, wall thickness, global and segmental systolic function are within normal limits. Ejection fraction is estimated to be 65%. The aortic valve is not well seen. There may be partial fusion of the left and right coronary cusp. The non-coronary cusp appears to move best. Doppler interrogation is consistent with borderline moderate to severe aortic stenosis. The estimated CHELITA is 1.0 cm2 with a peak/mean gradient of 67/39 mmHg (DOI = 0.29). The indexed CHELITA = 0.38 cm2/m2 which is severe. Consider further evaluation with ODILIA for better visualization of the aortic valve and estimated CHELITA via planimetry if clinically indicated. 4. Echo (stress): There is recruitment of all vega with stress. 5. ECG: NSR. There are nonspecific ST abnormalities at baseline with 1.0-1.[address] depression in the inferolateral leads with stress. 6. Other details as noted below. Findings discussed with referring. Cath- significant left main disease, two vessel disease Anesthesia Plan: ASA 4 general, with a(n) intravenous induction 68M with obesity, HTN, HLD, depression, psoriasis, OLIVIER, former smoker, GERD, and CAD plan for AVR CABG. Anesthesia plan for GA/ETT, arterial line, central line/PAC, ODILIA Region - Intrathoracic Cardiac Informed Consent: Anesthetic plan and risks discussed with patient. Use of blood products discussed with patient whom consented to blood products. Plan discussed with attending and resident[place] [facility] [place]: documented in this encounter Plan of Treatment Upcoming Encounters Date Type Department Care Team (Late st Contact Info) Description 12/18/2024 2:00 PM EDT Office Visit Dermatology at [facility] [address] [place] [address] Joyce Snyder MD [facility] [place] [address] documented as of this encounter Visit Diagnoses Not on filedocumented in this encounter Administered Medications Inactive Administered Medications - up to 3 most recent administrations Medication Order MAR Action Action Date Dose Rate Site ceFURoxime (ZINACEF) injection 1.5 g Administer over 60 Minutes, PRN, Starting on Sun09/02/13 at 1401, Until Cindy 09/04/13 at 0823, Attach to 100mL of sodium chloride 0.9% Mini-Bag Plus, Anesthesia Intra-op, Routine Given 09/02/2013 5:52 PM EST 1.5 g Given 09/02/2013 2:01 PM EST 1.5 g fentaNYL 50mcg/mL injection PRN, Starting on Sun09/02/13 at 1341, Until Cindy 09/04/13 at 0823, Pain, Anesthesia Intra-op, Routine Given 09/02/2013 2:22 PM EST 500 mcg Given 09/02/2013 1:41 PM EST 500 mcg heparin (porcine) injection PRN, Starting on Sun09/02/13 at 1447, Until Sun09/03/13 at 1444, Anesthesia Intra-op, Routine Given 09/02/2013 2:56 PM EST 36,000 Units Given 09/02/2013 2:47 PM EST 5,000 Units insulin regular human (HUMULIN;NOVOLIN) 150 Units in sodium chloride 0.9% 150 mL infusion 150 Units, CONTINUOUS PRN, Starting on Sun09/02/13 at 1607, Until Cindy 09/04/13 at 0823, Anesthesia Intra-op Rate/Dose Change 09/02/2013 4:37 PM EST 10 Units/hr 10 mL/hr New Bag 09/02/2013 4:07 PM EST 5 Units/hr 5 mL/hr lactated ringers infusion CONTINUOUS PRN, Starting on Sun09/02/13 at 1328, Until Cindy 09/04/13 at 0823, Anesthesia Intra-op New Bag 09/02/2013 1:28 PM EST mL midazolam (VERSED) injection PRN, Starting on Sun09/02/13 at 1341, Until Cindy 09/04/13 at 0823, Sleep, Anesthesia Intra-op, Routine Given 09/02/2013 6:15 PM EST 5 mg Given 09/02/2013 3:38 PM EST 2 mg Given 09/02/2013 1:41 PM EST 8 mg PHENYLephrine (KARAN-SYNEPHRINE) 20 mg in sodium chloride 250 mL infusion CONTINUOUS PRN, Starting on Sun09/02/13 at 1407, Until Cindy 09/04/13 at 0823, Anesthesia Intra-op, Routine Restarted 09/02/2013 5:30 PM EST 80 mcg/min 60 mL/hr Restarted 09/02/2013 3:00 PM EST 50 mcg/min 37.5 mL/hr New Bag 09/02/2013 2:07 PM EST 50 mcg/min 37.5 mL/hr protamine injection PRN, Starting on Sun09/02/13 at 1748, Until Cindy 09/04/13 at 0823, Anesthesia Intra-op, Routine Given 09/02/2013 5:48 PM EST 250 mg sodium chloride 0.9% infusion CONTINUOUS PRN, Starting on Sun09/02/13 at 1341, Until Cindy 09/04/13 at 0823, Anesthesia Intra-op New Bag 09/02/2013 1:41 PM EST mL succinylcholine (ANECTINE) injection PRN, Starting on Sun09/02/13 at 1341, Until Cindy 09/04/13 at 0823, Anesthesia Intra-op, Routine Given 09/02/2013 1:41 PM EST 200 mg tranexamic acid (CYKLOKAPRON) 100 mg/mL bolus injection (Anesthesia) PRN, Starting on e 09/02/13 at 1401, Until Cindy 09/04/13 at 0823, Anesthesia Intra-op, Routine Given 09/02/2013 2:01 PM EST 1,360 mg tranexamic acid (CYKLOKAPRON) injection CONTINUOUS PRN, Starting on e 09/02/13 at 1401, Until Cindy 09/04/13 at 0823, Anesthesia Intra-op, Routine New Bag 09/02/2013 2:01 PM EST 1 mg/kg/hr 1.4 mL/hr vancomycin (VANCOCIN) injection PRN, Starting on e 09/02/13 at 1401, Until Cindy 09/04/13 at 0823, Anesthesia Intra-op, Routine Given 09/02/2013 2:01 PM EST 1 g vasopressin (PITRESSIN) 0.5 units/mL IV infusion (Anesthesia) CONTINUOUS PRN, Starting on Sun09/02/13 at 1730, Until Cindy 09/04/13 at 0823 New Bag 09/02/2013 5:30 PM EST 0.04 Units/min 4.8 mL/hr vecuronium (NORCURON) injection PRN, Starting on Sun09/02/13 at 1422, Until Cindy 09/04/13 at 0823, Anesthesia Intra-op, Routine Given 09/02/2013 4:25 PM EST 10 mg Given 09/02/2013 2:22 PM EST 10 mg documented in this encounter Care Teams Digital Assistant Relationship Specialty Start Date End Date Carlos Hernandez DO [address] [place] [address] [address] [place] [address] PCP - General 08/16/10 02/25/23 documented as of this encounter
--- OUTSIDE RECORDS SUMMARY | 2024-09-23 14:23 | XMS_ITS | Encounter Summary ---
Author Organization [facility] [place] [address] Care Team Providers Care Assistant Professor Of Mathematics Name Role Phone Carlos Hernandez DO Primary Care Provider Encounter Details Date Type Department Care Team (Late st Contact Info) Description 09/09/2013 Telephone Cardioth[place]acic [place] [address] Feroz Arzola PA [facility] [place] [address] Social History Tobacco Use Types Packs/Day Years [...] encounter Miscellaneous Notes * Telephone Encounter - Feroz Arzola PA - 09/09/2013 4:21 PM EST Called Mr. Rosenthal today, spoke with his . Mr. Rosenthal went to the ED at [facility] yesterday, he was admitted for PNA per Ms. Rosenthal. I advised her to have the staff at [facility] call us if we can be of assistance. documented in this encounter Plan of Treatment Upcoming Encounters Date Type Department Care Team (Late st Contact Info) Description 12/18/2024 2:00 PM EDT Office Visit Dermatology at [facility] [address] [place] [address] Joyce Snyder MD [facility] [place] [place] [address] documented as of this encounter Visit Diagnoses Not on filedocumented in this encounter Care Teams Assistant Professor Of Mathematics Relationship Specialty Start Date End Date Carlos Hernandez DO [address] [place] [address] [address] [facility] [address] [place] [address] PCP - General 08/16/10 02/25/23 documented as of this encounter
--- OUTSIDE RECORDS SUMMARY | 2024-09-23 14:23 | XMS_ITS | Encounter Summary ---
Author Organization [facility] [place] [address] Care Team Providers Care Police Commissioner Name Role Phone Carlos Hernandez DO Primary Care Provider [phone] Encounter Details Date Type Department Care Team (Late st Contact Info) Description 09/29/2013 Telephone [place] [address] Michael Read PA Social History Tobacco Use [...] Telephone Encounter - Michael Read PA - 09/29/2013 8:47 AM EST Mr. Rosenthal' calls today reporting a 4 lb weight gain since Sunday. That was the last day he took Lasix 40 mg bid. His weight is 283 lbs. It was 298 lbs. at the time of discharge. I instructed them to restart taking HCTZ, which he was taking preoperatively, and to continue to monitor his weight. documented in this encounter Plan of Treatment Upcoming Encounters Date Type Department Care Team (Late st Contact Info) Description 12/18/2024 2:00 PM EDT Office Visit Dermatology at [address] [place] [address] Joyce Snyder MD [facility] [place] [address] documented as of this encounter Visit Diagnoses Not on filedocumented in this encounter Care Teams Police Commissioner Relationship Specialty Start Date End Date Carlos Hernandez DO [address] [place] [address] PCP - General 08/16/10 02/25/23 documented as of this encounter
--- OUTSIDE RECORDS SUMMARY | 2024-09-23 14:23 | XMS_ITS | Encounter Summary ---
Author Organization [facility] Address [facility] [place] [address] Care Team Providers Care Battery Parts Assembler Name Role Phone Carlos Hernandez DO Primary Care Provider Encounter Details Date Type Department Care Team (Late st Contact Info) Description 09/08/2013 Orders Only [place] [address] Michael Read PA S/P AVR (aortic valve replacement) and aortoplasty [...] PM EDT Office Visit Dermatology at [facility] [address] [place] [id number] Joyce Snyder MD [facility] [place] [address] documented as of this encounter Results * EKG 12 Lead (10/06/2013 10:38 AM EST) Ventricular rate 64 BPM MUSE SYSTEM Atrial Rate 64 BPM MUSE SYSTEM P-R Interval 188 ms MUSE SYSTEM QRS Duration 108 ms MUSE SYSTEM Q-T Interval 436 ms MUSE SYSTEM QTC Calculated (Bezet) 449 ms MUSE SYSTEM Calculated P [place] 63 degrees MUSE SYSTEM Calculated R [place] 64 degrees MUSE SYSTEM Calculated T [place] -115 degrees MUSE SYSTEM INTERPRETATION Normal sinus [...] Mathew Snell MD ECG ORDERABLES MUSE SYSTEM * XR chest routine PA & lateral [...] effusions. Mathew Snell MD IMG DX ORDERABLES * Echocardiogram Transthoracic(Leb) (10/06/2013 9:14 AM EST) EF 70 HEARTLAB SYSTEM Anatomical Region Laterality Modality Other 10/06/2013 Narrative 10/06/2013 9:27 AM EST Amended Report Procedure: ? Transthoracic Echocardiogram Patient: ? KARLA VILLATORO W ?(Age): 1945(68) Med Rec#: ?[id number] ? Sex: ?M ? Site Loc: ?[facility] [place] ? Ht / Wt: ??178(cm)/139(kg) Pt. Loc: ? Echo Lab ? BSA: ?2.62 Study Date: ?10/06/2013 ? Pt. Type: Outpatient Tape: ?[id number] ? 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 SUMMARY: 1. The left ventricular chamber size is normal. ??Borderline concentric left ventricular hypertrophy is observed with mild basal septal hypertrophy. 2. There is normal global left ventricular systolic function. ??Ejection fraction is estimated to be 70%. ??There are no left ventricular segmental wall motion abnormalities evident. 3. The right ventricle is normal in size. ??Right ventricular global systolic function is probably low normal. ??Pulmonary artery hypertension could not be assessed due to inadequate tricuspid regurgitation jet. 4. The bio-prosthetic aortic valve appears well seated; the leaflets are not well-visualized. ??The mean trans-valvular gradient across ??the aortic valve is 12 mmHg. ??There is no prosthetic aortic valve regurgitation present. 5. See remainder of report for additional findings. FINDINGS: Left Ventricle ?The left ventricular chamber size is normal. ?Borderline concentric left ventricular hypertrophy is observed. ?Basal septal hypertrophy is observed. ?There is no evidence of LVOT obstruction. ?There is normal global left ventricular systolic function. ??Ejection fraction is estimated to be 70%. ?There are no left ventricular segmental wall motion abnormalities. ?Left sided filling pressure could not be assessed by Doppler. ?A false chord is observed in the left ventricle. Left Atrium ?The left atrium is normal in size. Right Ventricle ?The right ventricle is normal in size. ?Right ventricular global systolic function is low normal. ?Pulmonary artery hypertension could not be assessed due to inadequate tricuspid regurgitation jet. Right Atrium ?The right atrium is normal in size. Aortic Valve ?The mean trans-valvular gradient across ??the aortic valve is 12 mmHg. ?The size of the prosthetic aortic valve is 25mm. ?The prosthetic aortic valve was implanted on 09/02/2013. ?A bovine bio-prosthetic aortic valve is present. ?There is no prosthetic aortic valve regurgitation [...] in the inferior vena cava dimension. Misc ?See remainder of report for additional findings. ?Two-dimensional echo, spectral Doppler and color Doppler performed. Wall Motion: Segment Name ?Rest ? Base-Anteroseptal ?? Normal ? Base-Anterior ? Normal ? Base-Anterolateral ??Normal ? Base-Posterolateral Normal ? Base-Inferior ? Normal ? Base-Inferoseptal ?? Normal ? Mid-Anteroseptal ?Normal ? Mid-Anterior ?Normal ? Mid-Anterolateral ?? Normal ? Mid-Posterolateral ??Normal ? Mid-Inferior ?Normal ? Mid-Inferoseptal ?Normal ? [place]-Septal ? Normal ? [place]-Anterior ? Normal ? [place]-Lateral ?Normal ? [place]-Inferior ? Normal ? [place]-Tip ?Normal ? Chambers ?Value ?Units (Range) ? IVSd 2D ? 1.1 ?cm ? LVIDd 2D ?4.5 ?cm ? PWd 2D ?1.1 ?cm ? LVIDs 2D ?2.6 ?cm ? LVFS 2D ? 42 ? % ? LA area ? 20 ? cm2 (<21) ? RA area ? 16 ? cm2 (<18) ? Ao root ? 2.6 ?cm (2.1 to 3.6) ? Asc Ao ?3.1 ?cm (2 to 3.5) ? Aortic Valve ?Value ?Units (Range) ? AV grad M ? 12 ? mmHg ? DOI ? 0.483 ? AV pk bee ? 2.6 ?m/sec (1 to 1.7) ? LVOT pk bee ? 1.24 ? m/sec (0.7 to 1.1) ?? Mitral Valve ?Value ?Units (Range) ? E peak ?0.96 ? m/sec ? E/A ratio ? 1.3 ?ratio ? MVDT ?289 ?msec ? E1 ?0.07 ? m/sec ? E/E1 ?13.7 ? ratio ? This report has been electronically signed by: Demetrio Son. ? 10/06/2013 11:11:52 Images reviewed and interpretation verified [facility] Cardiac Ultrasound Laboratory Procedure Note Demetrio Son MD - 10/06/2013 Amended Report Procedure: Transthoracic Echocardiogram Patient: KARLA Maldonado (Age): 1945(68) Med Rec#: [id number] Sex: M Site Loc: [facility] [place] Ht / Wt: 178(cm)/139(kg) Pt. Loc: Echo Lab BSA: 2.62 Study Date: 10/06/2013 Pt. 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 The left ventricular chamber size is normal. Borderline concentric left ventricular hypertrophy is observed with mild basal septal hypertrophy. 2. There is normal global left ventricular systolic function. Ejection fraction is estimated to be 70%. There are no left ventricular segmental wall motion abnormalities evident. 3. The right ventricle is normal in size. Right ventricular global systolic function is probably low normal. Pulmonary artery hypertension could not be assessed due to inadequate tricuspid regurgitation jet. 4. The bio-prosthetic aortic valve appears well seated; the leaflets are not well-visualized. The mean trans-valvular gradient across the aortic valve is 12 mmHg. There is no prosthetic aortic valve regurgitation present. 5. See remainder of report for additional findings. FINDINGS: Left Ventricle The left ventricular chamber size is normal. Borderline concentric left ventricular hypertrophy is observed. Basal septal hypertrophy is observed. There is no evidence of LVOT obstruction. There is normal global left ventricular systolic function. Ejection fraction is estimated to be 70%. There are no left ventricular segmental wall motion abnormalities. Left sided filling pressure could not be assessed by Doppler. A false chord is observed in the left ventricle. Left Atrium The left atrium is normal in size. Right Ventricle The right ventricle is normal in size. Right ventricular global systolic function is low normal. Pulmonary artery hypertension could not be assessed due to inadequate tricuspid regurgitation jet. Right Atrium The right atrium is normal in size. Aortic Valve The mean trans-valvular gradient across the aortic valve is 12 mmHg. The size of the prosthetic aortic valve is 25mm. The prosthetic aortic valve was implanted on 09/02/2013. A bovine bio-prosthetic aortic valve is present. There is no prosthetic aortic valve regurgitation [...] in the inferior vena cava dimension. Misc See remainder of report for additional findings. Two-dimensional echo, spectral Doppler and color Doppler performed. Wall Motion: Segment Name Rest Base-Anteroseptal Normal Base-Anterior Normal Base-Anterolateral Normal Base-Posterolateral Normal Base-Inferior Normal Base-Inferoseptal Normal Mid-Anteroseptal Normal Mid-Anterior Normal Mid-Anterolateral Normal Mid-Posterolateral Normal Mid-Inferior Normal Mid-Inferoseptal Normal [place]-Septal Normal [place]-Anterior Normal [place]-Lateral Normal [place]-Inferior Normal [place]-Tip Normal Chambers Value Units (Range) IVSd 2D 1.1 cm LVIDd 2D 4.5 cm PWd 2D 1.1 cm LVIDs 2D 2.6 cm LVFS 2D 42 % LA area 20 cm2 (<21) RA area 16 cm2 (<18) Ao root 2.6 cm (2.1 to 3.6) Asc Ao 3.1 cm (2 to 3.5) Aortic Valve Value Units (Range) AV grad M 12 mmHg DOI 0.483 AV pk bee 2.6 m/sec (1 to 1.7) LVOT pk bee 1.24 m/sec (0.7 to 1.1) Mitral Valve Value Units (Range) E peak 0.96 m/sec E/A ratio 1.3 ratio MVDT 289 msec E1 0.07 m/sec E/E1 13.7 ratio This report has been electronically signed by: Demetrio Son 10/06/2013 11:11:52 Images reviewed and interpretation verified [facility] Cardiac Ultrasound Laboratory Mathew Snell MD ECHO ORDERABLES documented in this encounter Visit Diagnoses Diagnosis S/P AVR (aortic valve replacement) and aortoplasty Heart valve replaced by other means S/P AVR (aortic valve replacement) and aortoplasty Heart valve replaced by other means S/P AVR (aortic valve replacement) and aortoplasty Heart valve replaced by other means documented in this encounter Care Teams Battery Parts Assembler Relationship Specialty Start Date End Date Carlos Hernandez DO [address] [place] [address] [address] [facility] [place] [address] PCP - General 08/16/10 02/25/23 documented as of this encounter
--- OUTSIDE RECORDS SUMMARY | 2024-09-23 14:23 | XMS_ITS | Encounter Summary ---
Author Organization [facility] [place] [address] Care Team Providers Care Central Service Supply Distributor Name Role Phone Carlos Hernandez DO Primary Care Provider Encounter Details Date Type Department Care Team (Latest Contact Info) Description 10/06/2013 8:22 AM EST - 10/06/2013 9:14 AM [facility] Hospital Encounter [place] [phone] S/P AVR (aortic valve replacement) and aortoplasty [...] 2:00 PM EDT Office Visit Dermatology at [address] [phone] Joyce Snyder MD [facility] [place] [address] documented as of this encounter Procedures Procedure Name Priority Date/Time Associated Diagnosis Comments ECHOCARDIOGRAM TRANSTHORACIC Routine 10/06/2013 9:14 AM EST S/P AVR (aortic valve replacement) and aortoplasty documented in this encounter Results * Echocardiogram Transthoracic(Leb) (10/06/2013 9:14 AM EST) EF 70 HEART[place] SYSTEM Anatomical Region Laterality Modality Other 10/06/2013 Narrative 10/06/2013 9:27 AM EST Amended Report Procedure: ? Transthoracic Echocardiogram Patient: ? FLAKOUS VILLATORO W ?(Age): 1945(68) Med Rec#: ?[id number] ? Sex: ?M ? Site Loc: ?[facility] [place] ? Ht / Wt: ??178(cm)/139(kg) Pt. Loc: ? Echo Lab ? BSA: ?2.62 Study Date: ?10/06/2013 ? Pt. Type: Outpatient Tape: ?[id number] ? 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 Mid-Inferior ?Normal ? Mid-Inferoseptal ?Normal ? [place]-Septal ? Normal ? [place]-Anterior ? Normal ? [place]-Lateral ?Normal ? [place]-Inferior ? Normal ? [place]-Tip ?Normal ? Chambers ?Value ?Units (Range) ? [...] has been electronically signed by: Demetrio Son ? 10/06/2013 11:11:52 Images reviewed and interpretation verified [facility] Cardiac Ultrasound Laboratory Procedure Note Demetrio Son MD - 10/06/2013 Amended Report Procedure: Transthoracic Echocardiogram Patient: KARLA WEINSTEIN(Age): 1945(68) Med Rec#: [id number] Sex: M Site Loc: [facility] [place] Ht / Wt: 178(cm)/139(kg) Pt. Loc: Echo Lab BSA: 2.62 Study Date: 10/06/2013 Pt. 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) S/P heart valve replacement (V42.2) CPT Code(s): Echo Full (08147), Spectral Doppler (88412), Color Doppler (57507), Indication(s): Aortic prosthesis, F/U Rhythm: HR BP [...] Normal Mid-Posterolateral Normal Mid-Inferior Normal Mid-Inferoseptal Normal [place]-Septal Normal [place]-Anterior Normal [place]-Lateral Normal [place]-Inferior Normal [place]-Tip Normal Chambers Value Units (Range) IVSd 2D [...] 10/06/2013 11:11:52 Images reviewed and interpretation verified [facility] Cardiac Ultrasound Laboratory Mathew Snell MD ECHO ORDERABLES documented in this encounter Visit Diagnoses Diagnosis S/P AVR (aortic valve replacement) and aortoplasty Heart valve replaced by other means documented in this encounter Care Teams Central Service Supply Distributor Relationship Specialty Start Date End Date Carlos Hernandez DO [address] [place] [address] PCP - General 08/16/10 02/25/23 documented as of this encounter
--- OUTSIDE RECORDS SUMMARY | 2024-09-23 14:24 | XMS_ITS | Encounter Summary ---
Author Organization [facility] Address [facility] [place] [address] Care Team Providers Care Application Tester Name Role Phone Carlos Hernandez DO Primary Care Provider Encounter Details Date Type Department Care Team (Late st Contact Info) Description 06/28/2012 11:15 AM EDT Follow-[place] [phone] Lan Singh MD [facility] [place] [address] Psoriasis (Primary Dx) Discharge Disposition: Home Social History Tobacco Use Types Packs/Day Years Used Date Smoking Tobacco: Former Cigarettes Q uit: 01/09/2001 Alcohol Use Standard Drinks/Week Comments Yes 0 (1 standard drink = 0.6 oz pur e alcohol) SOCIAL Sex and Gender Information Value Date Recorded Sex Assigned at Not on file Gender Identity Not on file Sexual Orientation Not on file documented as of this encounter Last Filed Vital Signs Vital Sign Reading Time Taken Comments Blood Pressure 144/76 06/28/2012 11:02 AM EDT Pulse 67 06/28/2012 11:02 AM EDT Temperature - - Respiratory Rate 16 06/28/2012 11:02 AM EDT Oxygen Saturation - - Inhaled Oxygen Concentration - - Weight 135.6 kg (299 lb) 06/28/2012 11:02 AM EDT Height 175.3 cm (5' 9) 06/28/2012 11:02 AM EDT Body Mass Index 44.15 06/28/2012 11:02 AM EDT documented in this encounter Progress Notes * Lan Singh MD - 06/28/2012 11:29 AM EDT DATE OF : 1945 HISTORY OF PRESENT ILLNESS: The patient is a 65-year-old male with psoriasis, psoriatic arthritis, sleep apnea, osteoarthritis, dyshidrotic eczema, AVN of both hips, fibromyalgia, status post arachnoid hemorrhage in 01/28/2007 without a clear cut cause, and status post bilateral hip replacement, the right in 2001 and the left in 2008 with good results. Since I saw him last in 12/2009, he has been essentially unchanged with significant joint pain, swelling, heat and tenderness of the MCPs, PIPs, and wrist bilaterally. Moderate psoriasis only partially controlled with his current medications. The only thing he is taking for arthritis is ibuprofen. Because he was on Enbrel, methotrexate, tramadol, and sulfisoxazole at the time of his subarachnoid hemorrhage and none of the drugs got restarted because he is so concerned about not having another event. Even there was no discernablereason to suggest that any of these drugs have much to do with this subarachnoid hemorrhage. Over the winter, he has gotten more depressed and inactive. Resulting in some weight gain, his highest weight was 130 kilograms and now he is down to 120, but he is back up from 118 kilograms. He is now up to 280 and had been as low as 260, so he is almost up to his worst weight. He is going to [place] santiago week or so, but only for a two week period. 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 CURRENT MEDICATIONS: His current medications are ibuprofen, a drug called Triplex DM, Zantac twice daily, enalapril 20 mg twice daily, Norvasc 10 mg once a day, folic acid 1 mg, hydrochlorothiazide 25 mg, calcium 600, and very rare oxycodone. PHYSICAL EXAMINATION: On exam, his pain scale is 8. His temperature is 98.4, his pulse rate is 60, and his blood pressure is 138/66. His general physical examination is only notable for obesity. His musculoskeletal exam is notable for active synovitis in the target joints that I mentioned above. Today, I have placed him on Paxil 10 mg and he is going to call me in three weeks and we will probably increase it to 20 mg. I did not start him back on DMARD for his psoriatic arthritis, because I did not want to start him on more than one medication at a time, but I will follow up in six weeks, at which time, I hope he is on 20 mg of Paxil and I will start him back on probably Enbrel. In the interim has done well on the Paxil with less anxiety. Will followup Locally for psych but inthe interim I increased his Paxil to 20mg/day Unfortunately weight has continued to increase from 260 to 281 and now [place] 288 [place] Offered bariatric surgery but wants to wait on it. Also has synovial proliferation but only mild tenderness wants to hold on the enbrel RTC 3 m In PTSD program at OR. Placed on celexa instead of paxil also given trazadone. Feels better less anger Psoriasis better with sun exposure No active synovitis Murmur at LSB and apex had ECHO outside but in view of the stroke I would prefer a consult here 08/24/11 Doing well THR were very successful Psoriasis is active but only on elbows No psoriatic arthritis complaints PTSD much better on celexa Spent 40min discussing many issues including his daugther who has SLE A) doing well P) same meds RTC 02/29/12 Psoriasis worse since coming back from [place] Will rx diprolene cream Had ECHO which was nl but got reaction to dye Abdominal ultrasound aorta 2.6 cm Got infusion rx but unclear what dye Hip occ painful PTSD a little Worse Will try 40mg celexa P) RTC 3 m 06/28/12 Psoriasis worse in spite of maximal conservative Management Long discussion of the risks and benefits of meds. Concerned because of meds at time of subarachnoid hemmorhage On exam psoriasis on hads and elbowsSynovial thickening in spite of nl physical fitness trainer strength of 34 kg per hand Will take MTX 15 mg per week Labs today RTC 3 m documented in this encounter Plan of Treatment Upcoming Encounters Date Type Department Care Team (Late st Contact Info) Description 12/18/2024 2:00 PM EDT Office Visit Dermatology at [facility] [address] [place] [address] Joyce Snyder MD [facility] [place] [address] documented as of this encounter Procedures Procedure Name Priority Date/Time Associated Diagnosis Comments DIFFERENTIAL, AUTOMATED Routine 06/28/2012 11:40 AM EDT CBC (WITH DIFF) Routine 06/28/2012 11:40 AM EDT Psoriasis CRP, CARDIAC RISK (HS CRP) Routine 06/28/2012 11:40 AM EDT Psoriasis COMPREHENSIVE METABOLIC PANEL Routine 06/28/2012 11:40 AM EDT Psoriasis documented in this encounter Results * DIFFERENTIAL, AUTOMATED (06/28/2012 11:40 AM EDT) Neutrophil % 57.4 34.0 - 71.0 % CERNER MILLENNIUM Neutrophil Absolute 2.83 1.50 - 6.30 x10(3)/mcL CERNER MILLENNIUM Lymph % 27.2 19.0 - 53.0 % CERNER MILLENNIUM Lymphocytes Abs 1.3 1.0 - 3.6 x10(3)/mcL CERNER MILLENNIUM Monocyte % 10.1 4.0 - 13.0 % CERNER MILLENNIUM Monocyte Abs 0.5 0.2 - 1.0 x10(3)/mcL CERNER MILLENNIUM Eos % 4.7 0.0 - 7.0 % CERNER MILLENNIUM Eosinophils Abs 0.2 0.0 - 0.5 x10(3)/mcL CERNER MILLENNIUM Basophil % 0.4 0.0 - 2.0 % CERNER MILLENNIUM Baso Absolute 0.0 0.0 - 0.2 x10(3)/mcL CERNER MILLENNIUM Immature Gran % 0.20 0.00 - 0.66 % CERNER MILLENNIUM Comment: Immature granulocytes(IG's)percentage and absolute count will include metamyelocytes, myelocytes, and promyelocytes. Blood smears from CBCs yielding IG's will be scanned manually for concordance. If this scan disagrees with the automated IG or if promyelocytes are noted, a manual differential will be performed. Immature Gran Absolute 0.01 0.00 - 0.05 x10(3)/mcL [facility] Blood specimen (specimen) 06/28/2012 11:40 AM EDT 06/28/2012 11:45 AM EDT Lan Singh MD HEMATOLOGY ORDERABLE S [facility] * High Sensitivity CRP (06/28/2012 11:40 AM EDT) C-Reactive Protein High Sensitivity 1.6 mg/L CERNER MILLENNIUM Comment: Interpretations: 1) For cardiac risk assessment, two values (fasting or nonfasting sample acceptable) taken at least 2 weeks apart, should be averaged to provide a more reliable estimate of marker level. ??This laboratory uses the recommendations from the AHA/CDC Scientific Statement for interpretations of future risks of cardiovascular events: ? <1.0 mg/L: low risk 1.0 - 3.0 mg/L: moderate risk >3.0 mg/L: high risk groups for future cardiovascular events 2) The general reference range of apparently healthy individuals using this test is <5.0 mg/L (derived from the test package insert) A few words of caution: For cardiac assessment, when a value >10 mg/L is encountered, there should be a search for an acute inflammatory condition or infection (in patients with acute inflammation, the concentration can increase to >500 mg/L). ??The >10 mg/L should be discarded if such a situation exists, since the risk for coronary heart disease cannot be provided, and a repeat specimen, taken at least two weeks after resolution of the acute inflammatory condition, may allow for appraisal of coronary risk information. Please note that significantly decreased CRP values may be obtained from samples taken from patients who have been treated with carboxypenicillins. References: 1. Loi PATEL et. al. ??AHA/CDC Scientific Statement: Markers of Inflammation and Cardiovascular Disease. ??Circulation 2003; 107:499-511 2. [place] PM. ??Clinical applications of C-reactive protein for cardiovascular disease detection and prevention. ??Circulation 2003; 107:363-369 Blood specimen (specimen) 06/28/2012 11:40 AM EDT 06/28/2012 11:45 AM EDT Narrative Resulting Agency Comment Spec In Lab Lan Singh MD CHEMISTRY ORDERABLES [facility] * (ABNORMAL) Comprehensive metabolic panel (non-fasting) (06/28/2012 11:40 AM EDT) Pathologist [facility] Glucose 104 60 - 199 mg/dL CERNER MILLENNIUM Comment:Diabetes: >=200 mg/d L plus symptoms Blood Urea Nitrogen 25(H) 10 - 20 mg/dL CERNER MILLENNIUM Creatinine 1.19 0.80 - 1.50 mg/dL CERNER MILLENNIUM Comment: Please note that the pediatric reference intervals supplied above were not validated at [facility] [place]. Results from pediatric patients should be interpreted in conjunction to the patient's age, height and muscle mass. Sodium 141 135 - 145 mmol/L CERNER MILLENNIUM Potassium 4.0 3.5 - 5.0 mmol/L CERNER MILLENNIUM Comment: [...] 5 - 15 mmol/L CERNER MILLENNIUM Calcium 9.4 8.5 - 10.5 mg/dL CERNER MILLENNIUM Protein, Total 7.1 6.4 - 8.3 gm/dL CERNER MILLENNIUM Albumin 4.6 3.2 - 5.2 gm/dL CERNER MILLENNIUM Aspartate Aminotransferase 31 0 - 39 unit/L CERNER MILLENNIUM Alanine Aminotransferase 27 0 - 55 unit/L CERNER MILLENNIUM Alkaline Phosphatase 28(L) 40 - 120 unit/L CERNER MILLENNIUM Bilirubin, Total 0.4 0.2 - 1.3 mg/dL CERNER MILLENNIUM Bilirubin, Direct 0.1 0.0 - 0.3 mg/dL CERNER MILLENNIUM Est Glomerular Filtration Rate >60 >=60 CERNER MILLENNIUM Comment: The National Kidney Disease Education Program (NKDEP) has recommended all laboratories report estimated GFR (eGFR) along with plasma creatinine measurements to assist you with recognition of early kidney disease. Caveats: ??Plasma creatinine should be at steady-state (unchanged within the past week). For patients multiply eGFR by 1.2. The MDRD equation was developed using patients between the ages of 18 and 70 years. ?? The MDRD equation has not been validated for patients < 18 years of age and should not be used to assess renal function in the pediatric population. ??The MDRD eGFR equation will also overestimate the true GFR of patients above the age of 70. ??This overestimation is variable but increases with age. At present, NKDEP does NOT recommend using the MDRD equation for drug dosing purposes and pharmacists should continue to use their current dosing methods. In addition, numerical eGFR values greater than 60 ml/min/1.73 square meters should be treated as > 60, and not an exact number due to greater inaccuracies at these higher values. Per NKDEP, they classify normal renal function as any GFR >60ml/min/1.73 square meters; chronic kidney disease when GFR <60, and renal failure when GFR <15. ??This calculation may not be valid for patients with atypical muscle mass (very lean or obese), acute renal failure, and in patients with diabetic kidney disease. References: http://nkdep.nih.gov/resources/NKDEP_Suggestn4Labs_0606_508.pdf http://www.kidney.org/professionals/kls/pdf/faq_gfr.pdf Tony An, Adeel NA, Joseph AK, Chip TS, Filemon AD, Fern ADRIEL. Relative performance of the MDRD and CKD-EPI equations for estimating glomerular filtration rate among patients with varied clinical presentations. Clin J Am Soc Nephrol;6:1963-72. Blood specimen (specimen) 06/28/2012 11:40 AM EDT 06/28/2012 11:45 AM EDT Narrative Resulting Agency Comment Spec In Lab Lan Singh MD CHEMISTRY ORDERABLES [facility] * CBC (with Diff) (06/28/2012 11:40 AM EDT) White Blood Cell 4.9 4.0 - 10.0 x10(3)/mcL CERNER MILLENNIUM Red Blood Cell 4.85 4.63 - 6.08 x10(6)/mcL CERNER MILLENNIUM Hemoglobin 14.4 13.7 - 17.5 gm/dL CERNER MILLENNIUM Hematocrit 43.0 40.0 - 51.0 % CERNER MILLENNIUM Mean Cell Volume 88.7 79.0 - 92.0 fL CERNER MILLENNIUM Mean Cell Hemoglobin 29.7 25.6 - 32.2 pg CERNER MILLENNIUM Mean Cell Hemoglobin Concentration 33.5 32.0 - 36.5 gm/dL CERNER MILLENNIUM Platelet 182 145 - 370 x10(3)/mcL CERNER MILLENNIUM RDW Standard Deviation 43.4 35.0 - 46.0 fL CERNER MILLENNIUM RDW coefficient of variation 13.3 10.9 - 14.4 % CERNER MILLENNIUM Mean Platelet Volume 9.8 9.0 - 12.0 fL CERNER MILLENNIUM Blood specimen (specimen) 06/28/2012 11:40 AM EDT 06/28/2012 11:45 AM EDT Narrative Resulting Agency Comment Spec In Lab Lan Singh MD HEMATOLOGY ORDERABLE S [facility] documented in this encounter Visit Diagnoses Diagnosis Psoriasis- Primary Other psoriasis documented in this encounter Care Teams Application Tester Relationship Specialty Start Date End Date Carlos Hernandez DO [address] [place] [address] PCP - General 08/16/10 02/25/23 documented as of this encounter
--- OUTSIDE RECORDS SUMMARY | 2024-09-23 14:24 | XMS_ITS | Encounter Summary ---
Author Organization [facility] Address [facility] [place] [address] Care Team Providers Care Business Banking Relationship Manager Name Role Phone Carlos Hernandez DO Primary Care Provider Encounter Details Date Type Department Care Team (Late st Contact Info) Description 02/01/2011 [place] [address] Lilia Lucero MD [facility] [place] [address] CVA (cerebral infarction) (Primary Dx) Social History Tobacco Use Types Packs/Day Years Used Date Smoking Tobacco: Former Cigarettes Q uit: 01/09/2001 Alcohol Use Standard Drinks/Week Comments Not Asked 0 (1 standard drink = 0.6 oz pur e alcohol) Sex and Gender Information Value Date Recorded Sex Assigned at Not on file Gender Identity Not on file Sexual Orientation Not on file documented as of this encounter Plan of Treatment Upcoming Encounters Date Type Department Care Team (Late st Contact Info) Description 12/18/2024 2:00 PM EDT Office Visit Dermatology at [facility] [address] [place] [address] Joyce Snyder MD [facility] [place] [address] documented as of this encounter Procedures Procedure Name Priority Date/Time Associated Diagnosis Comments FILM LIBRARY STORAGE ONLY MR HEAD AND SPINE Routine 01/25/2011 4:43 PM EDT documented in this encounter Results * FILM LIBRARY- STORAGE ONLY MR HEAD AND SPINE (01/25/2011 4:43 PM EDT) 01/25/2011 4:43 PM EDT Narrative RAD - 01/02/2014 11:44 AM EDT This is a non-reportable exam. Procedure Note Raza Nair - 01/02/2014 This is a non-reportable exam. Daron Díaz MD Liz FILM LIBRARY ORD ERABLES Performing Organization Address City/State/[facility] Co de Phone Number [facility] [address] [email or web address] [address] documented in this encounter Visit Diagnoses Diagnosis CVA (cerebral infarction)- Primary Unspecified cerebral artery occlusion with cerebral infarction documented in this encounter Care Teams Business Banking Relationship Manager Relationship Specialty Start Date End Date Carlos Hernandez DO [address] [place] [address] PCP - General 08/16/10 02/25/23 documented as of this encounter
--- OUTSIDE RECORDS SUMMARY | 2024-09-23 14:24 | XMS_ITS | Encounter Summary ---
Author Organization [facility] Address [facility] [place] [address] Care Team Providers Care Electric Tape Slitter Name Role Phone Carlos Hernandez DO Primary Care Provider [phone] Encounter Details Date Type Department Care Team (Latest Contact Info) Description 05/05/2011 10:26 AM EDT - 05/05/2011 11:59 PM EDT Hospital Encounter [place] [facility] [address] [facility] [place] [id number] S/P hip replacement Social History Tobacco Use Types Packs/Day [...] Start Date End Date aspirin 81 mg chewable tablet Take 81 mg by mouth daily. Fenofibric Acid (Trilipix) [address] capsule Take 1 tablet by mouth daily. ranitidine (ZANTAC) 150 mg tablet Take 150 mg by mouth 2 times daily. citalopram (CELEXA) 20 mg tablet Take 20 mg by mouth daily. 06/29/2015 traZODone (DESYREL) 50 mg tablet Take 50 mg by mouth nightly. 07/06/2016 amlodipine (NORVASC) 5 mg tablet Take 5 mg by mouth daily. 06/19/2013 epiNEPHrine (EPIPEN JR.) 0.15 mg/0.3 mL PnIj injection Inject into the muscle as needed. 06/29/2015 folic acid (FOLVITE) 1 mg tablet Take 1 mg by mouth daily. 06/19/2013 hydrochlorothiazide (HYDRODIURIL) 25 mg tablet Take 25 mg by mouth daily. 09/06/2013 enalapril (VASOTEC) 20 mg tablet 20 MG = 1 Tablet(s), PO, Twice daily 11/11/2010 02/29/2012 ibuprofen (ADVIL;MOTRIN) 800 mg tablet 800 MG = 1 Tablet(s), PO, Q6H,PRN 11/11/2010 09/06/2013 CALCIUM ORAL 11/11/2010 03/06/2013 documented as of this encounter Plan of Treatment Upcoming Encounters Date Type Department Care Team (Late st Contact Info) Description 12/18/2024 2:00 PM EDT Office Visit Dermatology at [facility] [address] [place] [address] Joyce Snyder MD [facility] [place] [address] documented as of this encounter Procedures Procedure Name Priority Date/Time Associated Diagnosis Comments XR PELVIS AND LATERAL HIP Routine 05/05/2011 10:39 AM EDT Hip joint replacement by other means documented in this encounter Results * XR PELVIS AND LATERAL HIP (05/05/2011 10:39 AM EDT) Anatomical Region Laterality Modality Pelvis, Hip N/A Radiographic Patricia ging 05/05/2011 10:3 9 AM EDT Impressions 05/05/2011 5:23 PM EDT IMPRESSION: ?? Stable arthroplasty without interval complication seen. Narrative 05/05/2011 5:23 PM EDT PELVIS AND RIGHT HIP: INDICATION: ??Followup right ROBERT. TECHNIQUE: ??AP view of the pelvis including both hips, as well as a lateral view of the right hip are compared to 06/24/09. ?? FINDINGS: ??The patient is status post bilateral total hip arthroplasty. The arthroplasty components on both sides appear in unchanged position on the AP pelvis. On the right, no change in position on the lateral view as well. No findings for loosening or polyethylene wear are identified. No new osseous or soft-tissue abnormalities are observed. ?? Procedure Note Mitali Cao MD - 05/05/2011 PELVIS AND RIGHT HIP: INDICATION: Followup right ROBERT. TECHNIQUE: AP view of the pelvis including both hips, as well as alateral view of the right hip are compared to 06/24/09. FINDINGS: The patient is status post bilateral total hip arthroplasty.The arthroplasty components on both sides appear in unchanged position on theAP pelvis. On the right, no change in position on the lateral view as well.No findings for loosening or polyethylene wear are identified. No new osseousor soft-tissue abnormalities are observed. IMPRESSION IMPRESSION: Stable arthroplasty without interval complication seen. Rosemarie C Sree-Marker FOOTWEAR FACTORY WORKER IMG DX ORDERA BLES documented in this encounter Visit Diagnoses Diagnosis S/P hip replacement Hip joint replacement by other means documented in this encounter Care Teams Electric Tape Slitter Relationship Specialty Start Date End Date Carlos Hernandez DO [address] [place] [address] PCP - General 08/16/10 02/25/23 documented as of this encounter
--- OUTSIDE RECORDS SUMMARY | 2024-09-23 14:24 | XMS_ITS | Encounter Summary ---
Author Organization [facility] [place] [address] Care Team Providers Care Leisure Travel Agent Name Role Phone Carlos Hernandez DO Primary Care Provider [phone] Reason for Visit * Reason Onset Date Comments Cerebrovascular Accident 01/27/2011 Encounter Details Date Type Department Care Team (Late st Contact Info) Description 01/27/2011 [place] [phone] Garth Simons MD [facility] [place] [address] Cerebrovascular Accident Social History Tobacco Use Types Packs/Day Years [...] encounter Miscellaneous Notes * Telephone Encounter - Garth Simons MD - 01/27/2011 4:54 PM EDT Outside MRI from [facility] reviewed and shows a small linear acute infarction in the central left cerebellar hemisphere just superior to the horizontal fissure. Outside MRA head and neck from 5/4 showed very little flow related enhancement in the cervical leftvertebral artery and no flow in the intracranial portion. documented in this encounter Plan of Treatment Upcoming Encounters Date Type Department Care Team (Late st Contact Info) Description 12/18/2024 2:00 PM EDT Office Visit Dermatology at [facility] [address] [place] [address] Joyce Snyder MD [facility] [place] [address] documented as of this encounter Visit Diagnoses Not on filedocumented in this encounter Care Teams Leisure Travel Agent Relationship Specialty Start Date End Date Carlos Hernandez DO [address] [place] [address] PCP - General 08/16/10 02/25/23 documented as of this encounter
--- OUTSIDE RECORDS SUMMARY | 2024-09-23 14:24 | XMS_ITS | Encounter Summary ---
Author Organization [facility] [address] Care Team Providers Care Burrer Marker Axle Name Role Phone Carlos Hernandez DO Primary Care Provider Encounter Details Date Type Department Care Team (Late st Contact Info) Description 02/09/2011 Orders [place] [phone] Rosemarie Badillo APRN S/P hip replacement (Primary Dx) Social History Tobacco Use Types [...] at [facility] [address] [place] [phone] Joyce Snyder MD [facility] [place] [address] documented as of this encounter Visit Diagnoses Diagnosis S/P hip replacement- Primary Hip joint replacement by other means documented in this encounter Care Teams Burrer Marker Axle Relationship Specialty Start Date End Date Carlos Hernandez DO [address] [place] [address] PCP - General 08/16/10 02/25/23 documented as of this encounter
--- OUTSIDE RECORDS SUMMARY | 2024-09-23 14:24 | XMS_ITS | Encounter Summary ---
Author Organization [facility] [place] [facility] [place] [address] Care Team Providers Care Railroad Baggage Porter Name Role Phone Carlos Hernandez DO Primary Care Provider Encounter Details Date Type Department Care Team (Late st Contact Info) Description 08/11/2013 9:30 AM EST Office [place] [address] Mathew Snell MD (aortic stenosis) (Primary Dx) Discharge Disposition: Home Social History [...] Sign Reading Time Taken Comments Blood Pressure 134/74 08/11/2013 9:21 AM EST Pulse 64 08/11/2013 9:21 AM EST Temperature - - Respiratory Rate - - Oxygen Saturation 95% 08/11/2013 9:21 AM EST Inhaled Oxygen Concentration - - Weight 142.3 kg (313 lb 12.8 oz) 08/11/2013 9:21 AM EST Height 177.8 cm (5' 10) 08/11/2013 9:21 AM EST Body Mass Index 45.03 08/11/2013 9:21 AM EST documented in this encounter Progress Notes * Mathew Snell MD - 08/11/2013 10:12 AM EST Referring Physician: Williams Miranda, Cardiology, [facility] Primary Care Physician: Carlos Hernandez D.O. He has been to [facility] once and seen a cardiological there and it appears that it was Dr. Turcios that he saw there and he once a [place]. However, he does not consider that his primary hospital. Mr. Rosenthal is a 67-year-old obese gentleman who has had an echo done first at the [place], then [facility], and he has dobutamine stress done here. Each echo puts his valve area right around the 1cm yennifer. [facility] got 1.2, the [place] got 1.1. His mean gradients on the DSE was a 39 with lower mean gradients on his resting. Mr. Rosenthal give a history of dyspnea on exertion [...] different times by Dr. Barragan here at [facility]. He has had diverticulitis, in which he had a diverting colostomy ultimately got a sigmoid and reconnected and [place]. He had a subdural hematoma that Dr. [...] had a long discussion with his referring hosiery mater regarding timing of the surgery, expectations for symptom relief, and at this point he would like to just have this done so that he can go to [place] in November and hopefully work on a [...] the likelihood of making it down to [place] in November. He knows that he will [...] opportunity to participate. documented in this encounter Miscellaneous Notes * Addendum Note - Mathew Campbell - 08/11/2013 10:24 AM ESTAddended by: MATHEW CAMPBELL on: 08/11/2013 10:24 AM Modules accepted: Orders documented in this encounter Plan of Treatment Upcoming Encounters Date Type Department Care Team (Late st Contact Info) Description 12/18/2024 2:00 PM EDT Office Visit Dermatology at [facility] [address] [place] [address] Joyce Snyder MD [facility] [place] [address] [place] [address] documented as of this encounter Procedures Procedure Name Priority Date/Time Associated Diagnosis Comments DIFFERENTIAL, AUTOMATED Routine 08/11/2013 10:49 AM EST TYPE AND SCREEN, SDP (FUTURE SURGERY, [facility] SAME DAY PROGRAM ONLY) Routine 08/11/2013 10:49 AM EST (aortic stenosis) ABO/RH TYPING Routine 08/11/2013 10:49 AM EST (aortic stenosis) CBC (WITH DIFF) Routine 08/11/2013 10:49 AM EST (aortic stenosis) ANTIBODY SCREEN Routine 08/11/2013 10:49 AM EST (aortic stenosis) BASIC METABOLIC PANEL Routine 08/11/2013 10:49 AM EST (aortic stenosis) @REPLACE AORTIC VALVE, OPEN, W\CPB, W\PROSTHETIC VALVE Routine 08/11/2013 10:05 AM EST (aortic stenosis) documented in this encounter Results * Differential, Automated (08/11/2013 10:49 AM EST) Neutrophil % 57.7 34.0 - 71.0 % CERNER MILLENNIUM Neutrophil Absolute 3.15 1.50 - 6.30 x10(3)/mcL CERNER MILLENNIUM Lymph % 26.3 19.0 - 53.0 % CERNER MILLENNIUM Lymphocytes Abs 1.4 1.0 - 3.6 x10(3)/mcL CERNER MILLENNIUM Monocyte % 10.4 4.0 - 13.0 % CERNER MILLENNIUM Monocyte Abs 0.6 0.2 - 1.0 x10(3)/mcL CERNER MILLENNIUM Eos % 4.9 0.0 - 7.0 % CERNER MILLENNIUM Eosinophils Abs 0.3 0.0 - 0.5 x10(3)/mcL CERNER MILLENNIUM Basophil % 0.7 0.0 - 2.0 % CERNER MILLENNIUM Baso Absolute 0.0 0.0 - 0.2 x10(3)/mcL CERNER MILLENNIUM Immature Gran % 0.00 0.00 - 0.66 % CERNER MILLENNIUM Comment: Immature granulocytes(IG's)percentage and absolute count will include metamyelocytes, myelocytes, and promyelocytes. Blood smears from CBCs yielding IG's will be scanned manually for concordance. If this scan disagrees with the automated IG or if promyelocytes are noted, a manual differential will be performed. Immature Gran Absolute 0.00 0.00 - 0.05 x10(3)/mcL CERNER MILLENNIUM Blood specimen (specimen) 08/11/2013 10:49 AM EST 08/11/2013 11:13 AM EST Mathew Snell MD [facility]OLOGY [facility]ABL ES [facility] * Antibody screen (08/11/2013 10:49 AM EST) Pathologist [facility] Ab Screen Interp Negative CERNER MILLENNIUM Expires at [id number] on: [id number] CERNER MILLENNIUM Comment:Corrected from 09/25 12:00 [Unknown] on 08/12/13 08:28 by Sofi Decker. Blood specimen (specimen) 08/11/2013 10:49 AM EST 08/11/2013 11:34 AM EST Narrative Resulting Agency Comment Spec In Lab Mathew Snell MD BLOOD BANK LAB ORDE ALBERTO Performing Organization Address [facility]/ZIP Co de Phone Number [facility] * ABO/Rh Typing (08/11/2013 10:49 AM EST) Pathologist [facility] ABORH Type AB Pos CERNER MILLENNIUM Blood specimen (specimen) 08/11/2013 10:49 AM EST 08/11/2013 11:34 AM EST Narrative Resulting Agency Comment Spec In Lab Mathew Snell MD BLOOD BANK LAB ORDE ALBERTO Performing Organization Address [facility]/ZIP Co de Phone Number [facility] * (ABNORMAL) Basic Metabolic Panel (non-fasting) (08/11/2013 10:49 AM EST) Pathologist [facility] Glucose 84 60 - 199 mg/dL [facility] MILLENNIUM Comment:Diabetes: >=200 mg/d L plus symptoms Blood Urea Nitrogen 22(H) 10 - 20 mg/dL CERNER MILLENNIUM Creatinine 1.26 0.80 - 1.50 mg/dL CERNER MILLENNIUM Comment: Please note that the pediatric reference intervals supplied above were not validated at [facility]. Results from pediatric patients should be interpreted in conjunction to the patient's age, height and muscle mass. Sodium 141 135 - 145 mmol/L [facility] MILLENNIUM Potassium 4.1 3.5 - 5.0 mmol/L CERNER MILLENNIUM Comment: [...] 5 - 15 mmol/L CERNER MILLENNIUM Calcium 9.5 8.5 - 10.5 mg/dL CERNER MILLENNIUM Est Glomerular Filtration Rate 57(L) >=60 CERNER MILLENNIUM Comment: This estimated GFR [...] internet browser. http://www.nkdep.nih.gov/lab-evaluation.shtml http://www.kidney.org/professionals/ Blood specimen (specimen) 08/11/2013 10:49 AM EST 08/11/2013 11:13 AM EST Narrative Resulting Agency Comment Spec In Lab Mathew Snell MD CHEMISTRY ORDERABLE S [facility] JSOETTE * CBC (with Diff) (08/11/2013 10:49 AM EST) White Blood Cell 5.5 4.0 - 10.0 x10(3)/mcL CERNER MILLENNIUM Red Blood Cell 4.80 4.63 - 6.08 x10(6)/mcL CERNER MILLENNIUM Hemoglobin 14.0 13.7 - 17.5 gm/dL CERNER MILLENNIUM Hematocrit 42.5 40.0 - 51.0 % CERNER MILLENNIUM Mean Cell Volume 88.5 79.0 - 92.0 fL CERNER MILLENNIUM Mean Cell Hemoglobin 29.2 25.6 - 32.2 pg CERNER MILLENNIUM Mean Cell Hemoglobin Concentration 32.9 32.0 - 36.5 gm/dL [facility] MILLENNIUM Platelet 173 145 - 370 x10(3)/mcL [facility] RDW Standard Deviation 44.2 35.0 - 46.0 fL [facility] MILLENNIUM RDW coefficient of variation 13.7 10.9 - 14.4 % [facility] MILLENNIUM Mean Platelet Volume 10.3 9.0 - 12.0 fL [facility] NAENNIUM Blood specimen (specimen) 08/11/2013 10:49 AM EST 08/11/2013 11:13 AM EST Narrative Resulting Agency Comment Spec In Lab Mathew Snell MD HEMATOLOGY ORDERABL ES [facility] documented in this encounter Visit Diagnoses Diagnosis (aortic stenosis)- Primary Aortic valve disorders documented in this encounter Care Teams Railroad Baggage Porter Relationship Specialty Start Date End Date Carlos Hernandez DO [address] [place] [address] PCP - General 08/16/10 02/25/23 documented as of this encounter
--- OUTSIDE RECORDS SUMMARY | 2024-09-23 14:24 | XMS_ITS | Encounter Summary ---
Author Organization [facility] [place] [address] Care Team Providers Care Garnett Room Worker Name Role Phone Carlos Hernandez DO Primary Care Provider Reason for Visit * Reason Comments Aortic Valve Disorder Encounter Details Date Type Department Care Team (Late st Contact Info) Description 08/04/2013 10:10 AM EST Follow-Up Cardiology at [address] [phone] Williams Miranda MD Aortic stenosis (Primary Dx) Discharge Disposition: Home Social History [...] Sign Reading Time Taken Comments Blood Pressure 128/78 08/04/2013 10:04 AM EST Pulse 60 08/04/2013 10:04 AM EST Temperature - - Respiratory Rate - - Oxygen Saturation 96% 08/04/2013 10:04 AM EST room air Inhaled Oxygen Concentration - - Weight 137.9 kg (304 lb) 08/04/2013 10:04 AM EST Height 177.8 cm (5' 10) 08/04/2013 10:04 AM EST Body Mass Index 43.62 08/04/2013 10:04 AM EST documented in this encounter Patient Instructions * Patient Instructions* Williams Miranda MD - 08/04/2013 10:35 AM EST I will arrange for you to see a cardiac surgeon to discuss possible aortic valve replacement. documented in this encounter Progress Notes * Williams Miranda MD - 08/04/2013 10:24 AM EST Mr. Rosenthal returns for his DSE. He reached his target heart rate with no evidence of ischemia. HIs CHELITA calculates to 1.0 cm2, but his index is pretty low at 0.4. I have discussed with him the difficulty in discerning whether his symptom of us is coming from this or from his weight problem and poor conditioning. I have had a long discussion with Mr. Rosenthal about his options. While his calculated CHELITA is moderateto severe at 1.0 cm2 his calculated index is 0.39 which would be considered severe. I have told himthat it will be difficult to predict if his symptoms would be improved by aortic valve replacement,but that the numbers would support consideration of proceeding. He would like to do that and see CTsurgery in consultation. Will arrange. documented in this encounter Plan of Treatment Upcoming Encounters Date Type Department Care Team (Late st Contact Info) Description 12/18/2024 2:00 PM EDT Office Visit Dermatology at [facility] [address] [place] [address] Joyce Snyder MD [facility] [place] [place] [address] documented as of this encounter Visit Diagnoses Diagnosis Aortic stenosis- Primary Aortic valve disorders documented in this encounter Care Teams Garnett Room Worker Relationship Specialty Start Date End Date Carlos Hernandez DO [address] [place] [address] PCP - General 08/16/10 02/25/23 documented as of this encounter
--- OUTSIDE RECORDS SUMMARY | 2024-09-23 14:24 | XMS_ITS | Encounter Summary ---
Author Organization [facility] [place] [address] Care Team Providers Care Nsh Teacher Name Role Phone Carlos Hernandez DO Primary Care Provider Encounter Details Date Type Department Care Team (Late st Contact Info) Description 08/11/2013 2:00 PM EST Clinical [place] [address] Social History Tobacco Use Types Packs/Day Years [...] as of this encounter Progress Notes * Chema Alejandra, RN - 08/11/2013 10:41 AM EST Patient arrived in [facility] for CT surgery teaching and preadmission testing. Written and verbal instructions for use along with Hibiclens soap was given to the patient. Pain scale was reviewed with the patient as well as the importance of pain control,pulmonary toilet, and the use of an incentive spirometer. The patient expressed an understanding of matierials reviewed. Patients surgery has not been booked yet. Patient had blood work done today. He states he had a sleep study years ago and used a CPAP machine for awhile, but has not used it for many years. He states he had a TIA 2 years ago, no residual from that. He was instructed by Dr. Perla to stop his losartan 2 days pre op. Pre op folder reviewed with patient. He would like us to call his home phone with pre op information, message is okay. documented in this encounter Plan of Treatment Upcoming Encounters Date Type Department Care Team (Late st Contact Info) Description 12/18/2024 2:00 PM EDT Office Visit Dermatology at [facility] [address] [place] [address] Joyce Snyder MD [facility] [place] [address] documented as of this encounter Visit Diagnoses Not on filedocumented in this encounter Care Teams Nsh Teacher Relationship Specialty Start Date End Date Carlos Hernandez DO [address] [place] [address] PCP - General 08/16/10 02/25/23 documented as of this encounter
--- OUTSIDE RECORDS SUMMARY | 2024-09-23 14:24 | XMS_ITS | Encounter Summary ---
Author Organization [facility] Address [facility] [place] [address] Care Team Providers Care Coating And Baking Operator Name Role Phone Carlos Hernandez DO Primary Care Provider Encounter Details Date Type Department Care Team (Late st Contact Info) Description 08/19/2013 8:13 AM EST - 08/19/2013 5:45 PM EST Hospital Encounter [place] [phone] Williams Gu MD [facility] [address] Pardeep Ibarra II, MD Aortic stenosis Discharge Disposition: Home Social History Tobacco [...] Sign Reading Time Taken Comments Blood Pressure 140/52 08/19/2013 5:10 PM EST Pulse 58 08/19/2013 5:10 PM EST Temperature 36.6 ??C (97.9 ??F) 08/19/2013 3:18 PM ES T Respiratory Rate 18 08/19/2013 5:10 PM EST Oxygen Saturation 94% 08/19/2013 5:10 PM EST Inhaled Oxygen Concentration - - Weight 138.3 kg (305 lb) 08/19/2013 9:48 AM EST Height 177.8 cm (5' 10) 08/19/2013 9:48 AM EST Body Mass Index 43.76 08/19/2013 9:48 AM EST documented in this encounter Discharge Instructions * Discharge Instructions* Brynn Roa RN - 08/19/2013 3:43 PM EST Activity If you are discharged the same day as your procedure, do not drive yourself home. Arrange to have another person drive. You may walk around when you get home, but keep your activity at a minimum until the morning. Do not bend over, strain, or lift heavy objects for 24 hours after the procedure. Do not participate in active sports for 48 hours. You may engage in sexual activity after 48 hours. These restrictions will not apply if the catheter was placed in a blood vessel in your arm. Catheter Insertion Area Care Take the band-aid off the catheter insertion area the morning following the procedure. You may takea shower if you wish. Wash the area with soap and water. Look for signs of infection over the next several days. A little spot of blood at the catheter insertion area is not unusual. A bruise or small lump under the skin is normal; they generally disappear in 3-4 days. For the first several days at home if you cough or sneeze, hold your groin to help prevent bleeding. Expect some mild tenderness over the area where the catheter was inserted. You will notice this after the local anesthetic (numbing medicine) wears off. This should improve during the 24-48 hours after the procedure. Take tylenol if needed. Contact your doctor if the discomfort worsens. Problems to Watch For If there is bright red blood flowing from the catheter insertion area: *stop what you are doing and lie down *Hold pressure steadily on the area for 15 minutes *Call for Help *If the bleeding does not stop in 15 minutes call 911 for an ambulance. If there is swelling with black and blue color at the catheter insertion area, there may be bleeding inside. Contact the doctor if there is any increase in size. Look at the insertion site for the first few days at home. Signs of infection are: *redness *Swelling *Yellow, white, green or brown foul smelling drainage. *increased soreness If you think there is an infection, take your temperature. Then call your doctor. The limb on the side where you had your catheterization should look and feel normal in its color, sensation, and temperature. If your leg becomes cool, pale, blue or changing color with numbness and tingling, contact your doctor. If you feel faint or dizzy, lie down with your feet elevated. Have someone call the doctor. If you are alert, drink fluids. How to Deal with Chest pain If you had only the cardiac catheterization, treat any angina or chest discomfort as instructed. Stop what you are doing, and sit or lie down. If prescribed, take nitroglycerin under your tongue. If the angina isn't relieved, take another nitroglycerine in 5 minutes. After another 5 minutes, a third nitroglycerine may be taken. If the angina isn't improved you should call for an ambulance to bring you to the nearest hospital emergency room. If your angina is more frequent or more sever than before, contact your doctor. We usually would not expect to have angina after an angioplasty. If you do get angina, treat it as you did before but also contact your doctor. Return to Work The doctor will usually have told you when to return to work. If you do not perform heavy physical labor, most people can return to work in a few days. Diet Follow your previous diet unless otherwise instructed. Cardiac Risk Factors If you have coronary artery disease, it is important that you help control it by reducing your cardiac risk factors. If you smoke, we urge you to stop now. If you think this is going to be a problem,let us know so that we may help you. We have dieticians who can help you learn about low fat, low cholesterol diet. Cardiac rehabilitation programs can help you set up a regular exercise program. Work with your doctor if you have high blood pressure or sugar diabetes to keep these under control. Medications ____Take your usual medications ____Medication changes: If you are taking medicines prescribed by your doctor, do not take any qyvn-aep-mfvlidg medicines or herbal preparations without first discussing this with your doctor or pharmacist. There is the possibility of side effect and interactions when these are combined. Follow up Care Who to Call with Questions or Problems If there are any questions or problems that you think might be related to your cardiac cath or angioplasty, contact the emergency management program specialist control operator flow coat by calling [facility] at . documented in this encounter Medications at Time [...] by mouth daily. 60 tablet 09/06/2013 07/16/2014 chlorhexidine (HIBICLENS) 4 % external liquidIndications: (aortic stenosis) Apply topically daily as needed. Shower from head to toe with Chlorhexidine the night before surgery . 120 mL 0 08/11/2013 09/02/2013 losartan (COZAAR) 100 mg tablet Take 100 mg by mouth. 05/07/201309/06 amlodipine (NORVASC) 10 mg tablet Take 10 mg by mouth daily. 09/06/2013 ustekinumab (STELARA) 90 mg/mL SyrgIndications:Ps oriasis Inject [...] Inject into the muscle as needed. 06/29/2015 hydrochlorothiazid e (HYDRODIURIL) 25 mg tablet Take 25 mg by mouth daily. 09/06/2013 ibuprofen (ADVIL;MOTRIN) 800 mg tablet 800 MG = 1 Tablet(s), PO, Q6H,PRN 11/11/2010 09/06/2013 documented as of this encounter Progress Notes * Maryse Perkins RN - 08/19/2013 4:49 PM EST 1640 Patient right groin dressing with a scant amount of bloody drainage noted. Patient has been sitting up in bed for about 20 min. Pressure held for a few min. No change in drainage on the dressingnoted. Patient OOB with assist. Right groin dressing monitored frequently. Patient ambulated down the hallway towards [facility]. Patient able to void in the bathroom without any difficulties. Right groin dressing remains unchanged. 1650 Patient back to bed, Dr Spicer at the bedside and made aware of the right groin dressing. 1653 Radha Ann at the bedside to assess the groin dressing. Lidocaine with epi used at the site and a 2x2 gauze saturated with lido with epi applied to right groin site and covered with mediporetape. Verbal orders given from team to ambulate patient and monitor dressing if it remains cdi pt may be discharged home. 1720 Patient OOB with minimal assist. Patient again ambulated in the hallway. Right groin dressing remains dry. IV's x2 removed, catheters intact. Discharge AVS had been reviewed with the patient andwife by Brynn DUMONT. Patient and have no further questions at this time. Patient stable for discharge home. Patient discharged home via wheelchair with AVS and belongings. documented in this encounter Miscellaneous Notes * Miscellaneous - Provider, Scanning - 08/19/2013 11:12 PM EST * Miscellaneous - Provider, Scanning - 08/19/2013 11:12 PM EST * Miscellaneous - Provider, Scanning - 08/19/2013 3:19 PM EST documented in this encounter Plan of Treatment Upcoming Encounters Date Type Department Care Team (Late st Contact Info) Description 12/18/2024 2:00 PM EDT Office Visit Dermatology at [address] [phone] Joyce Snyder MD [facility] [place] [address] documented as of this encounter Procedures Procedure Name Priority Date/Time Associated Diagnosis Comments PROTHROMBIN TIME STAT 08/19/2013 8:27 AM EST Aortic stenosis documented in this encounter Results * Prothrombin Time (08/19/2013 8:27 AM EST) Prothrombin Time 13.7 12.0 - 15.0 sec MARCY FINCH Comment: [facility] Transfusion Committee Guidelines: INR less than 2.0, PTT less than OR equal to 43.5 seconds, or Fibrinogen greater than or equal to 100 mg/dl indicate adequate procoagulant activity for hemostasis in patients without underlying bleeding disorders. International Normalization Ratio 1.0 0.9 - 1.1 MARCY FINCH Blood specimen (specimen) 08/19/2013 8:27 AM EST 08/19/2013 8:31 AM EST Narrative Resulting Agency Comment Spec In Lab Williams Diallo MD HEMATOLOGY ORDERABLE S MARCY FINCH documented in this encounter Visit Diagnoses Diagnosis Aortic stenosis Aortic valve disorders documented in this encounter Administered Medications Inactive Administered Medications - up to 3 most recent administrations Medication Order MAR Action Action Date Dose Rate Site diaZEPam (VALIUM) tablet 5 mg 5 mg, Oral, ONCE, 1 dose, On Sun08/19/13 at 1015, Cath (Day of Procedure), Routine Given 08/19/2013 11:13 AM EST 5 mg diphenhydrAMINE (BENADRYL) capsule 25 mg 25 mg, Oral, ONCE, 1 dose, On Sun08/19/13 at 1015, Cath (Day of Procedure), Routine Given 08/19/2013 11:13 AM EST 25 mg sodium chloride 0.9% infusion 200 mL/hr, Intravenous, CONTINUOUS, Starting on Sun08/19/13 at 1015, Until Sun08/19/13 at 1300, Cath (Day of Procedure) New Bag 08/19/2013 10:15 AM EST 200 mL/hr 200 mL/hr sodium chloride 0.9% infusion 150 mL/hr, Intravenous, CONTINUOUS, Starting on Sun08/19/13 at 1330, Until Sun08/19/13 at 1629 New Bag 08/19/2013 1:21 PM EST 150 mL/hr 150 mL/hr documented in this encounter Active and Recently Administered Medications Times are shown in EST. Scheduled Medication Order 08/17/2013 08/18/2013 08/19/2013 diaZEPam (VALIUM) tablet 5 mg (COMPLETED) 5 mg, Oral, ONCE, 1 dose, On Sun08/19/13 at 1015, Cath (Day of Procedure), Routine 1113 (Given - Provid er: Mary Biswas RN) diphenhydrAMINE (BENADRYL) capsule 25 mg (COMPLETED) 25 mg, Oral, ONCE, 1 dose, On 08/19/13 at 1015, Cath (Day of Procedure), Routine 1113 (Given - Provid er: Mary Biswas RN) Continuous Medication Order 08/17/2013 08/18/2013 08/19/2013 sodium chloride 0.9% infusion (CANCELED) 200 mL/hr, Intravenous, CONTINUOUS, Starting on Sun08/19/13 at 1015, Until Sun08/19/13 at 1300, Cath (Day of Procedure) 1015 (New Bag - Prov ider: Mary Biswas RN) sodium chloride 0.9% infusion () 150 mL/hr, Intravenous, CONTINUOUS, Starting on Sun08/19/13 at 1330, Until Sun08/19/13 at 1629 1321 (New Bag - Prov ider: Saranya Carroll RN) PRN Medication Order 08/17/2013 08/18/2013 08/19/2013 fentaNYL 50mcg/mL injection (CANCELED) ONCE PRN, Starting on Sun08/19/13 at 1229, Until Sun08/19/13 at 1300, Pain, Intra-Operative (Intra-Procedure), Routine 1229 (Given - Provid er: Robi Rush RN - Comment: for Back Pain) heparin (porcine) injection (CANCELED) ONCE PRN, Starting on Sun08/19/13 at 1228, Until Sun08/19/13 at 1300, Cath (Intra-Procedure), Routine 1228 (Given - Provid er: Pardeep Ibarra II - Comment: Given IA in Bonderizer) iohexol (OMNIPAQUE) 350 mg iodine/mL injection (CANCELED) ONCE PRN, Starting on Sun08/19/13 at 1250, Until Sun08/19/13 at 1300, Per Protocol, Cath (Intra-Procedure), Routine 1250 (Given - Provid er: Pardeep Ibarra II - Comment: Contrast in Bonderizer) documented in this encounter Care Teams Coating And Baking Operator Relationship Specialty Start Date End Date Carlos Hernandez DO [address] [place] [address] PCP - General 08/16/10 02/25/23 documented as of this encounter
--- OUTSIDE RECORDS SUMMARY | 2024-09-23 14:24 | XMS_ITS | Encounter Summary ---
Author Organization [facility] [place] [address] Care Team Providers Care Electronics Engineering Technologist Name Role Phone Carlos Hernandez DO Primary Care Provider Reason for Referral * Consultation (Routine) - Closed Specialty Diagnoses / Procedures Referred By Guanaco marie Referred To Contact Cardiology Diagnoses Aortic stenosis Lan Singh MD [facility] [place] [address] Williams Miranda MD [facility] [place] [address] Referral ID Status Reason Start Date Expiration Date V isits Requested Visits Authorized [id number] Closed Consult, Test & Treat 06/19/2013 12/16/2013 1 1 Reason for Visit * Reason Comments Psoriasis Encounter Details Date Type Department Care Team (Late st Contact Info) Description 06/19/2013 8:15 AM EDT Follow-[place] [phone] Lan Singh MD [facility] [place] [address] Psoriasis (Primary Dx); Aortic stenosis Discharge Disposition: Home Social History [...] Sign Reading Time Taken Comments Blood Pressure 139/81 06/19/2013 8:19 AM EDT Pulse 57 06/19/2013 8:19 AM EDT Temperature 36.7 ??C (98.1 ??F) 06/19/2013 8:19 AM ED T Respiratory Rate - - Oxygen Saturation 95% 06/19/2013 8:19 AM EDT Inhaled Oxygen Concentration - - Weight 147.9 kg (326 lb) 06/19/2013 8:19 AM EDT Height 177.8 cm (5' 10) 06/19/2013 8:19 AM EDT Body Mass Index 46.78 06/19/2013 8:19 AM EDT documented in this encounter Progress Notes * Lan Singh MD - 06/19/2013 9:04 AM EDT Rheumatology Outpatient Progress Note Problem List Patient Active Problem List Diagnosis Date Noted ??? Obesity 04/22/2012 ??? HTN (hypertension) 04/22/2012 [...] 05/04/2011 Interval History: Raghu Rosenthal is a 67 y.o. male returns today for f/u of [...] but not big difference atfer stopping MTX Jennie was approved and now had 2 shots with excellent response after the second ROS: General (-)fevers, (-)chills, (-)night sweats, (-)wt loss/gain, (-)fatigue HEENT (-)vision change, (-)oral ulcers, (-)dry eyes, (-)dry mouth, (-)hair loss CVS (-)chest pain, (-)palpitations, (-)pedal edema Pulm (-)shortness of breath, (-)JORDAN, (-)wheezes, (-)cough, (-)pleuritic pain GI (-)N/V, (-)abdominal pain, (-)emesis, (-)change in appetite (-)hematuria, (-)dysuria MS (-)muscle weakness, (+)joint pain, (-)joint swelling Endo (-)thyroid disorders, (-)diabetes Neuro (-)focal weakness, (-)paresthesias, (-)gait instability. Skin (-)Raynaud's, (-)rashes, (-)ulcers, (-)photo sensitivity+ psoriasis Psych (-) mood disorder Current Outpatient Prescriptions Medication Status Sig Dispense Refill ??? amlodipine (NORVASC) 10 mg tablet Active Take 10 mg by mouth daily. ??? amoxicillin (AMOXIL) 500 mg capsule Active Take 500 mg by mouth 4 times daily. Takes before Dental procedure Indications: Pneumococcal Pneumonia ??? ustekinumab (STELARA) 90 mg/mL Syrg Active Inject 1 mL subcutaneously Q 3 Months. Then every twelve weeks 1 mL 3 ??? UNABLE TO FIND Active as needed. O'Narayan hand cream OTC ??? Magnesium Chloride 64 mg TbEC Active Take by mouth. ??? LOSARTAN/HYDROCHLOROTHIAZIDE (HYZAAR ORAL) Active Take 100 mg by mouth daily. ??? citalopram (CELEXA) 20 mg tablet Active Take 20 mg by mouth daily. ??? traZODone (DESYREL) 50 mg tablet Active Take 50 mg by mouth nightly. ??? aspirin 81 mg chewable tablet Active Take 81 mg by mouth daily. ??? Fenofibric Acid (TRILIPIX) 135 mg CpDR Active Take 1 tablet by mouth daily. ??? epiNEPHrine (EPIPEN JR.) 0.15 mg/0.3 mL PnIj injection Active Inject into the muscle as needed. ??? ranitidine (ZANTAC) 150 mg tablet Active Take 150 mg by mouth 2 times daily. ??? hydrochlorothiazide (HYDRODIURIL) 25 mg tablet Active Take 25 mg by mouth daily. ??? ibuprofen (ADVIL;MOTRIN) 800 mg tablet Active 800 MG = 1 Tablet(s), PO, Q6H,PRN ??? folic acid (FOLVITE) 1 mg tablet Discontinued Take 1 mg by mouth daily. Allergies Allergen Reactions ??? Atorvastatin Calcium ??? Morphine Sulfate Nausea And Vomiting ??? Amoxicillin Trihydrate ??? Bee Venom (Honey Bee) ??? Clarithromycin ??? Hydrocodone Bit ??? Indomethacin ??? Lansoprazole ??? Other (Unclassified Drug) IV dyes ??? Pravastatin Sodium ??? Prednisone ??? Tetracyclines Physical Exam: BP 139/81 Pulse 57 Temp 36.7 ??C (98.1 ??F) (Oral) Ht 177.8 cm (5' 10) Wt 147.873 kg (326 lb) BMI 46.78 kg/m2 SpO2 95% General: AAOx3, NAD, pleasant HEENT: PERRL, Mucous membranes are moist, no oral mucosal ulcerations, temporal artery palpable Neck: Supple, no lymphadenopathy, full range of motion. Cardiovascular: KANIKA LSB and apex no bruit delayed carotid upstroke Lungs: Clear to auscultation bilaterally, (-)R/R/W Abdomen: Soft, nontender, nondistended, normal active bowel sounds, no hepatosplenomegaly. Back: Nontender over the spine and costovertebral angles bilaterally. Neuro: Alert and oriented x3. Cranial nerves II through XII grossly intact. Strength 5/5 throughout, Sensation to light touch is grossly normal throughout. DTRs are 2+ throughout. Skin: (-)ulcers, (-)rash psoriasis on palms Extremities Shoulders: FROM, non-tender to palpation Elbows:FROM, (-)pain, (-)nodules Wrists: FROM, no swelling, non-tender Hands: No synovitis, no MCP compression tenderness, full claw and fist. Hips: FROM Knees: (-)effusions, non-tender ROM Ankles: FROM, non-tender, no swelling Feet: no MTP compression tenderness Labs: ok Assessment: Raghu Rosenthal is a 67 y.o. male who returns in follow up of psoriasis and psoriatic arthritis better on Stellara Plan: No change Refer to Dr. Miranda for hemodynamically significant RTC 3m documented in this encounter Plan of Treatment Upcoming Encounters Date Type Department Care Team (Late st Contact Info) Description 12/18/2024 2:00 PM EDT Office Visit Dermatology at [address] [phone] Joyce Snyder MD [facility] [place] [address] Scheduled Referrals Name Type Priority Associated Diagnoses Order Schedule Referral to Cardiology Outpatient Referral Routine Aortic stenosis Ordered: 06/19/2013 documented as of this encounter Visit Diagnoses Diagnosis Psoriasis- Primary Other psoriasis Aortic stenosis Aortic valve disorders documented in this encounter Care Teams Electronics Engineering Technologist Relationship Specialty Start Date End Date Carlos Hernandez DO [address] [place] [address] PCP - General 08/16/10 02/25/23 documented as of this encounter
--- OUTSIDE RECORDS SUMMARY | 2024-09-23 14:24 | XMS_ITS | Encounter Summary ---
Author Organization [facility] [place] [address] Care Team Providers Care Leaf Sticker Name Role Phone Carlos Hernandez DO Primary Care Provider Reason for Visit * Reason Onset Date Comments Advice Only 01/24/2011 Encounter Details Date Type Department Care Team (Late st Contact Info) Description 01/24/2011 [place] [phone] Lilia Lucero MD [facility] [place] [address] Advice Only Social History Tobacco Use Types Packs/Day Years [...] encounter Miscellaneous Notes * Telephone Encounter - Lilia Lucero - 01/24/2011 1:02 PM EDT Patient's PCP, Dr. Hernandez, called this morning for advice regarding Mr. Rosenthal and to request an urgent clinic visit. 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 Per [facility] note review, it appears a vascular abnormality was ruled out at this time. Several weeks ago the patient was seen by Dr. Hernandez for vertiginous symptoms that worsened with headmovement. Dr. Hernandez suspected peripheral vs central cause of vertigo, thus an MRI of the brain was obtained. Per Dr. Hernandez MRI brain revealed an 11x4mm area of diffusion restriction in the left cerebellar lobe. Dr. Hernandez calls at this time to request advice on management and to arrange an urgent visit. 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 Case discussed with Dr. Simons. Prior work-up of SAH wasunrevealing for a vascular abnormality, thus benefit of ASA in this patient likely outweighs benefit. Dr. Hernandez agreed to arrange for MRA of the head and neck and to initiate an ASA. I agreed to set up an urgent visit for the patient with me in clinic next week. Patient phone info: [phone] documented in this encounter Plan of Treatment Upcoming Encounters Date Type Department Care Team (Late st Contact Info) Description 12/18/2024 2:00 PM EDT Office Visit Dermatology at [facility] [address] [place] [address] Joyce Snyder MD [facility] [place] [address] documented as of this encounter Visit Diagnoses Not on filedocumented in this encounter Care Teams Leaf Sticker Relationship Specialty Start Date End Date Carlos Hernandez DO [address] [place] [address] PCP - General 08/16/10 02/25/23 documented as of this encounter
--- OUTSIDE RECORDS SUMMARY | 2024-09-23 14:24 | XMS_ITS | Encounter Summary ---
[place] [address] Care Team Providers Care Flight Dynamicist Name Role Phone Carlos Hernandez DO Primary Care Provider [phone] Encounter Details Date Type Department Care Team (Latest Contact Info) Description 08/04/2013 7:48 AM EST - 08/04/2013 11:59 PM EST Hospital Encounter [place] [address] Dyspnea on exertion; Aortic stenosis Social History Tobacco Use Types Packs/Day Years [...] Sign Reading Time Taken Comments Blood Pressure 129/76 08/04/2013 8:54 AM EST Pulse 60 08/04/2013 8:54 AM EST Temperature - - Respiratory Rate - - Oxygen Saturation 96% 08/04/2013 8:54 AM EST RA Inhaled Oxygen Concentration - - Weight 136.1 kg (300 lb) 08/04/2013 8:54 AM EST Height 177.8 cm (5' 10) 08/04/2013 8:54 AM EST Body Mass Index 43.05 08/04/2013 8:54 AM EST documented in this encounter Medications at Time of Discharge Medication Sig Dispensed Refills Start Date End Date amoxicillin (AMOXIL) 500 mg capsule Take 2,000 mg by mouth See Admin Instructions. Takes before Dental procedure. TAKE 4 TABLETS ONE HOUR BEFORE DENTAL PROCEDURES aspirin 81 mg chewable tablet Take 81 mg by mouth daily. Fenofibric Acid (Trilipix) [address] capsule Take 1 tablet by mouth daily. ranitidine (ZANTAC) 150 mg tablet Take 150 mg by mouth 2 times daily. losartan (COZAAR) 100 mg tablet Take 100 mg by mouth. 05/07/20132012 amlodipine (NORVASC) 10 mg tablet Take 10 mg by mouth daily. 09/06/2013 ustekinumab (STELARA) 90 mg/mL SyrgIndications:Psori asis Inject 1 mL subcutaneously Q 3 Months. Then every twelve weeks 1 mL 3 06/19/2013 12/29/2013 Magnesium Chloride 64 mg TbEC Take 64 mg by mouth daily. 03/06/2019 LOSARTAN/HYDROCHLOROT HIAZIDE (HYZAAR ORAL) Take 100 mg by mouth daily. 08/11/2013 citalopram (CELEXA) 20 mg tablet Take 20 mg by mouth daily. 06/29/2015 traZODone (DESYREL) 50 mg tablet Take 50 mg by mouth nightly. 07/06/2016 epiNEPHrine (EPIPEN JR.) 0.15 mg/0.3 mL PnIj injection Inject into the muscle as needed. 06/29/2015 hydrochlorothiazide (HYDRODIURIL) 25 mg tablet Take 25 mg by mouth daily. 09/06/2013 ibuprofen (ADVIL;MOTRIN) 800 mg tablet 800 MG = 1 Tablet(s), PO, Q6H,PRN 11/11/2010 09/06/2013 documented as of this encounter Plan of Treatment Upcoming Encounters Date Type Department Care Team (Late st Contact Info) Description 12/18/2024 2:00 PM EDT Office Visit Dermatology at [facility] [address] [place] [address] Joyce Snyder MD [facility] [place] [address] documented as of this encounter Procedures Procedure Name Priority Date/Time Associated Diagnosis Comments ECHOCARDIOGRAM PHARMACOLOGICAL STRESS TEST (DSE) Routine 08/04/2013 9:39 AM EST Dyspnea on exertion Aortic stenosis documented in this encounter Results * Echo pharm stress test (DSE) (08/04/2013 9:39 AM EST) EF 65 HEARTLAB SYSTEM Anatomical Region Laterality Modality Other 08/04/2013 Narrative 08/04/2013 10:42 AM EST Procedure: ? Stress Echocardiogram Patient: ? KARLA VILLATORO W ?(Age): 1945(67) Med Rec#: ?[id number] ? Sex: ?M ? Site Loc: ?[facility] ? Ht / Wt: ??177.8(cm)/136.3 Pt. Loc: ? Echo Lab ? BSA: ?2.59 Study Date: ?08/04/2013 ? Pt. Type: Outpatient Tape: ? Referring: Williams Miranda MD Streetcar Starter: Lesvia Benitez Nurse: Lesvia Aguilar Diagnosis: ??Ischemia (414.9) CPT Code(s): ??Doppler LTD (90654), ??ECG Interpretation (64676), ??Stress Echo (15699), ??Color Doppler (40623), Indication(s):Medication(s): ?? Rhythm: Stage ?HR ?BP Rest ? 63 ?148/70 ?? Low dose ? 64 ?160/65 ?? Peak ? 134 ? 138/65 ?? Recovery ? 69 ?124/75 ?? SUMMARY: 1. Dobutamine stress echo is negative for ischemia at this level of stress. ??Of note, the patient has moderate to severe aortic stenosis. ?? 2. Maximum heart rate achieved was 134 bpm, which is 87% of the maximum (154 beats/min). The target heart rate was achieved. The peak dose of Dobutamine infused was 40 ug/kg/min and 0.50 mg of Atropine. ??The patient reported 5/10 chest pressure with stress and mild jaw discomfort. 3. Echo (rest): Technically difficult images. ??Intravenous contrast was not administered due to a history of adverse reaction. ??Left ventricular chamber size, wall thickness, global and segmental systolic function are within normal limits. Ejection fraction is estimated to be 65%. ??The aortic valve is not well seen. ??There may be partial fusion of the left and right coronary cusp. ??The non-coronary cusp appears to move best. Doppler interrogation is consistent with borderline moderate to severe aortic stenosis. ??The estimated CHELITA is 1.0 cm2 with a peak/mean gradient of 67/39 mmHg (DOI = 0.29). ??The indexed CHELITA = 0.38 cm2/m2 which is severe. ??Consider further evaluation with ODILIA for better visualization of the aortic valve and estimated CHELITA via planimetry if clinically indicated. 4. Echo (stress): There is recruitment of all vega with stress. 5. ECG: NSR. ??There are nonspecific ST abnormalities at baseline with 1.0-1.[address] depression in the inferolateral leads with stress. ?? 6. Other details as noted below. ??Findings discussed with referring. FINDINGS: Rest Study Quality ?Adequate Left Ventricle ?Left ventricular chamber size, wall thickness, global and segmental systolic function are within normal limits. Ejection fraction is estimated to be 65%. Left Atrium ?The left atrium is probably normal in size. Right Ventricle ?Right ventricular chamber size, wall thickness, and systolic function are within normal limits. Right Atrium ?The right atrium is probably normal in size. Aortic Valve ?The aortic valve is probably tricuspid. ?All leaflets of the aortic valve are thickened. ?Systolic excursion of the aortic valve cusps is reduced. ?The peak instantaneous trans-valvular gradient across ??the aortic valve is 67 mmHg. ?The mean trans-valvular gradient across ??the aortic valve is 39 mmHg. ?The calculated aortic valve area is 1 cm2. Mitral Valve ?The mitral valve appears normal in structure and function. ?There is trace mitral regurgitation present. Tricuspid Valve ?The tricuspid valve appears normal in structure and function. ?There is no evidence of tricuspid valve regurgitation present. Pericardium ?The pericardium appears normal and there is no evidence of a pericardial effusion. Stress ?EKG: sinus bradycardia. ?The patient's oxygen saturation was 96 RA ?The patient is on an anti-hypertensive; ??( ) hours since taken. ?The patient is taking a beta ricardo. Misc ?Other echo and stress findings as noted in report. ?A 20 gauge heplock was placed. ?An antecubital IV was placed. ?An IV was placed in the patient's right arm. ?The patient is alert and oriented x3. ?The procedure was explained to the patient and the patient understands the procedure, ?Stress echo, limited spectral Doppler, color Doppler and ECG interpretation performed. FINDINGS: Low dose Stress ?EKG: normal sinus rhythm. ?The patient's oxygen saturation was 96% RA FINDINGS: Peak Left Ventricle ?There are no left ventricular segmental wall motion abnormalities. Stress ?Maximum heart rate achieved was 134, which is 87% of the maximum(154 beats/min). ?The target heart rate was achieved. ?The peak dose of Dobutamine infused was 40 ug/kg/min. ?The Dobutamine dose duration was:14 min. ?The patient was administered 0.50 mg of Atropine. ?The patient was administered 2.5 mg of Metoprolol during recovery. ?The patient performed leg lifts to accelerate heart rate. ?The patient performed hand squeezes to accelerate heart rate. ?The patient got shaky during the test. ?The blood pressure response was normal. ?The patient's oxygen saturation was 95% RA Misc ?The patient developed 5/10 chest pain/pressure during the procedure. pt had 5/10 right jaw pain.With complete resolution in recovery. FINDINGS: Recovery Stress ?EKG: normal sinus rhythm. ?The patient's oxygen saturation was 96% RA Misc ?The heplock was discontinued. ?The IV site is dry and intact with no hematoma. ?Normal saline was given. 75cc's Wall Motion: Segment Name ?Rest ?Peak ? Base-Anteroseptal ?? Normal ?Normal ? Base-Anterior ? Normal ?Normal ? Base-Anterolateral ??Normal ?Normal ? Base-Posterolateral Normal ?Normal ? Base-Inferior ? Normal ?Normal ? Base-Inferoseptal ?? Normal ?Normal ? Mid-Anteroseptal ?Normal ?Normal ? Mid-Anterior ?Normal ?Normal ? Mid-Anterolateral ?? Normal ?Normal ? Mid-Posterolateral ??Normal ?Normal ? Mid-Inferior ?Normal ?Normal ? Mid-Inferoseptal ?Normal ?Normal ? [place]-Septal ? Normal ?Normal ? [place]-Anterior ? Normal ?Normal ? [place]-Lateral ?Normal ?Normal ? [place]-Inferior ? Normal ?Normal ? [place]-Tip ?Normal ?Normal ? Chambers ?Value ?Units (Range) ? LV EF Est ? 65 ? % (55 to 80) ? Aortic Valve ?Value ?Units (Range) ? AV grad P ? 67 ? mmHg ? AV grad M ? 39 ? mmHg ? CHELITA(bee) ?1 ?cm2 (2 to 4) ? DOI ? 0.29 ? AV pk bee ? 4.1 ?m/sec (1 to 1.7) ? LVOT pk bee ? 1.2 ?m/sec (0.7 to 1.1) ?? LVOT D ?2.1 ?cm ? Aortic Valve ?Value ?Units (Range) ? AV grad P ? 82 ? mmHg ? AV grad M ? 50 ? mmHg ? This report has been electronically signed by: Damian Wynn MD ? 08/04/2013 10:29:15 Images reviewed and interpretation verified [facility] Cardiac Ultrasound Laboratory Procedure Note Damian Wynn MD - 08/04/2013 Procedure: Stress Echocardiogram Patient: KARLA Maldonado (Age): 1945(67) Med Rec#: [id number] Sex: M Site Loc: [facility] Ht / Wt: 177.8(cm)/136.3 Pt. Loc: Echo Lab BSA: 2.59 Study Date: 08/04/2013 Pt. Type: Outpatient Tape: Referring: Williams Miranda MD Streetcar Starter: Lesvia Benitez Nurse: Lesvia Aguilar Diagnosis: Ischemia (414.9) CPT Code(s): Doppler LTD (07390), ECG Interpretation (11319), Stress Echo (01467), Color Doppler (33523), Indication(s):Medication(s): Rhythm: Stage HR BP Rest 63 148/70 Low dose 64 160/65 Peak 134 138/65 Recovery 69 124/75 SUMMARY: 1. Dobutamine stress echo is negative for ischemia [...] as noted below. Findings discussed with referring. FINDINGS: Rest Study Quality Adequate Left Ventricle Left ventricular chamber size, wall thickness, global and segmental systolic function are within normal limits. Ejection fraction is estimated to be 65%. Left Atrium The left atrium is probably normal in size. Right Ventricle Right ventricular chamber size, wall thickness, and systolic function are within normal limits. Right Atrium The right atrium is probably normal in size. Aortic Valve The aortic valve is probably tricuspid. All leaflets of the aortic valve are thickened. Systolic excursion of the aortic valve cusps is reduced. The peak instantaneous trans-valvular gradient across the aortic valve is 67 mmHg. The mean trans-valvular gradient across the aortic valve is 39 mmHg. The calculated aortic valve area is 1 cm2. Mitral Valve The mitral valve appears normal in structure and function. There is trace mitral regurgitation present. Tricuspid Valve The tricuspid valve appears normal in structure and function. There is no evidence of tricuspid valve regurgitation present. Pericardium The pericardium appears normal and there is no evidence of a pericardial effusion. Stress EKG: sinus bradycardia. The patient's oxygen saturation was 96 RA The patient is on an anti-hypertensive; ( ) hours since taken. The patient is taking a beta ricardo. Misc Other echo and stress findings as noted in report. A 20 gauge heplock was placed. An antecubital IV was placed. An IV was placed in the patient's right arm. The patient is alert and oriented x3. The procedure was explained to the patient and the patient understands the procedure, Stress echo, limited spectral Doppler, color Doppler and ECG interpretation performed. FINDINGS: Low dose Stress EKG: normal sinus rhythm. The patient's oxygen saturation was 96% RA FINDINGS: Peak Left Ventricle There are no left ventricular segmental wall motion abnormalities. Stress Maximum heart rate achieved was 134, which is 87% of the maximum(154 beats/min). The target heart rate was achieved. The peak dose of Dobutamine infused was 40 ug/kg/min. The Dobutamine dose duration was:14 min. The patient was administered 0.50 mg of Atropine. The patient was administered 2.5 mg of Metoprolol during recovery. The patient performed leg lifts to accelerate heart rate. The patient performed hand squeezes to accelerate heart rate. The patient got shaky during the test. The blood pressure response was normal. The patient's oxygen saturation was 95% RA Misc The patient developed 5/10 chest pain/pressure during the procedure. pt had 5/10 right jaw pain.With complete resolution in recovery. FINDINGS: Recovery Stress EKG: normal sinus rhythm. The patient's oxygen saturation was 96% RA Misc The heplock was discontinued. The IV site is dry and intact with no hematoma. Normal saline was given. 75cc's Wall Motion: Segment Name Rest Peak Base-Anteroseptal Normal Normal Base-Anterior Normal Normal Base-Anterolateral Normal Normal Base-Posterolateral Normal Normal Base-Inferior Normal Normal Base-Inferoseptal Normal Normal Mid-Anteroseptal Normal Normal Mid-Anterior Normal Normal Mid-Anterolateral Normal Normal Mid-Posterolateral Normal Normal Mid-Inferior Normal Normal Mid-Inferoseptal Normal Normal Sav[place]-Septal Normal Normal Sav[place]-Anterior Normal Normal Savannah-Lateral Normal Normal Sav[place]-Inferior Normal Normal Sav[place]-Tip Normal Normal Chambers Value Units (Range) LV EF Est 65 % (55 to 80) Aortic Valve Value Units (Range) AV grad P 67 mmHg AV grad M 39 mmHg CHELITA(bee) 1 cm2 (2 to 4) DOI 0.29 AV pk bee 4.1 m/sec (1 to 1.7) LVOT pk bee 1.2 m/sec (0.7 to 1.1) LVOT D 2.1 cm Aortic Valve Value Units (Range) AV grad P 82 mmHg AV grad M 50 mmHg This report has been electronically signed by: Damian Wynn MD 08/04/2013 10:29:15 Images reviewed and interpretation verified [facility] Cardiac Ultrasound Laboratory Williams Miranda MD ECHO ORDERABLES documented in this encounter Visit Diagnoses Diagnosis Dyspnea on exertion Other dyspnea and respiratory abnormality Aortic stenosis Aortic valve disorders documented in this encounter Administered Medications Inactive Administered Medications - up to 3 most recent administrations Medication Order MAR Action Action Date Dose Rate Site atropine injection 0.5 mg 0.5 mg, Intravenous, at 15 mL/hr, Administer over 1 Minutes, ONCE, 1 dose, On Sun08/04/13 at 0915, Echo Lab (Intra-Procedure), Routine Given 08/04/2013 9:10 AM EST 0.5 mg 15 mL/hr DOBUTamine 500 mg in sodium chloride 0.9% 250 mL (ECHO LAB) 40 mcg/kg/min ? 136.1 kg (rounded to 163.3 mL/hr), Intravenous, ONCE, 1 dose, On Sun08/04/13 at 0945, Administer over 14 Minutes, Echo Lab (Intra-Procedure) Given 08/04/2013 9:10 AM EST 5.444 mg/min 163.3 mL/hr metoprolol (LOPRESSOR) injection 2.5 mg 2.5 mg, Intravenous, EVERY 5 MIN PRN, Starting on Sun08/04/13 at 0915, Until Sun06/16/15 at 0020, High Blood Pressure, Echo Lab (Intra-Procedure), Routine Given 08/04/2013 9:15 AM EST 2.5 mg documented in this encounter Care Teams Flight Dynamicist Relationship Specialty Start Date End Date Carlos Hernandez DO [address] [place] [address] [address] [place] [address] PCP - General 08/16/10 02/25/23 documented as of this encounter
--- OUTSIDE RECORDS SUMMARY | 2024-09-23 14:24 | XMS_ITS | Encounter Summary ---
Author Organization [facility] Address [facility] [address] Care Team Providers Care Tail Puller Name Role Phone Carlos Hernandez DO Primary Care Provider Reason for Visit * Reason Onset Date Comments Medication Refill 11/05/2012 Encounter Details Date Type Department Care Team (Late st Contact Info) Description 11/05/2012 [place] [address] Lan Singh MD [facility] [place] [address] Psoriasis (Primary Dx) Social History Tobacco Use [...] encounter Miscellaneous Notes * Telephone Encounter - Lianet Bartlett LPN - 11/05/2012 12:32 PM EST Rx should go to [facility], not local pharmacy documented in this encounter Plan of Treatment Upcoming Encounters Date Type Department Care Team (Late st Contact Info) Description 12/18/2024 2:00 PM EDT Office Visit Dermatology at [address] [place] [address] Joyce Snyder MD [facility] [place] [address] documented as of this encounter Visit Diagnoses Diagnosis Psoriasis- Primary Other psoriasis documented in this encounter Care Teams Tail Puller Relationship Specialty Start Date End Date Carlos Hernandez DO [address] [place] [address] PCP - General 08/16/10 02/25/23 documented as of this encounter
--- OUTSIDE RECORDS SUMMARY | 2024-09-23 14:24 | XMS_ITS | Encounter Summary ---
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 Left 2007 Surgeon: Genaro Barragan Procedure: bilateral total hip replacement HPI: Raghu Rosenthal is a very pleasant 67 y.o. year-old male who presents for a 5 year and 11 years follow-up of the above procedure. The patient has been doing very well and his pain is markedly improved over preoperative status. No fevers, chills, nausea, vomiting, or symptoms of infection. Raghu has been ambulating with no assistive device. He has psoriatic arthritis and does have treatment. Physical Exam: Well-appearing male in no acute distress. Alert and Oriented x 3 and answers all questions appropriately. I have made the following determinations: Post Op Right Hip Exam: Voss Hip Score: Less than 30 degrees of fixed flexion: Yes Less than 10 degrees of fixed adduction: Yes less than 10 degrees of fixed int rotation in extension: Yes Limb Length discrepancy: 0cm Motion: Total degrees of Flexion:90 Total degrees of Abduction:35 Total degrees of Ext Rotation: 25 Total degrees of Adduction: 5 Gait Abnormality: Normal Pulses Palpable: Right PT: Yes Right DP:Yes Motor/Sensory: Right Distal Motor: Normal Distal Sensory: Normal Hip Abductors: 5 Post Op Left Hip Exam: Voss Hip Score: Less than 30 degrees of fixed flexion: Yes Less than 10 degrees of fixed adduction: Yes Less than 10 degrees of fixed int rotation in extension: Yes Limb Length discrepancy: 0cm Motion: Total degrees of Flexion: 90 Total degrees of Abduction: 35 Total degrees of Ext Rotation: 25 Total degrees of Adduction: 0 Gait Abnormality: Normal Pulses Palpable: Left PT: Yes Left DP: Yes Motor/Sensory: Left Distal Motor: Normal Distal Sensory: Normal Hip Abductors: 5 X-RAYS: Multiple radiographic views were obtained at my request and reviewed with the patient. X-rays show a well-placed prosthesis with no evidence of fracture or loosening. ASSESSMENT/PLAN: 11 years post-op and doing well. Continue weightbearing as tolerated and working on range of motion, and we will see him back in 2 years for repeat examination. x-rays will be neededat that time. Patient may return to normal activities as his pain and function allow. We discussed the appropriate precautions surrounding dental prophylaxis. I stressed that he should avoid elective dental procedures for the first 6 months after surgery and then call the office for aprescription prior to any further dental work for the lifetime of the joint replacement. We also discussed maintaining good foot care and giving prompt attention to any source of infection throughoutthe body including foot ulcers and urinary tract infections. Signed: PATRICK NELSON 06/19/2013 documented in this encounter Plan of Treatment Upcoming Encounters Date Type Department Care Team (Late st Contact Info) Description 12/18/2024 2:00 PM EDT Office Visit Dermatology at [facility] [address] [place] [address] [facility] [place] [address] documented as of this encounter Visit Diagnoses Diagnosis S/P prosthetic total arthroplasty of the hip- Primary Hip joint replacement by other means documented in this encounter Care Teams Working Second Hand Relationship Specialty Start Date End Date Carlos Hernandez DO [address] [place] [address] PCP - General 08/16/10 02/25/23 documented as of this encounter
--- OUTSIDE RECORDS SUMMARY | 2024-09-23 14:24 | XMS_ITS | Encounter Summary ---
Author Organization [facility] Address [facility] [place] [address] Care Team Providers Care Manufacturing Business Analyst Name Role Phone Carlos Hernandez DO Primary Care Provider [phone] Encounter Details Date Type Department Care Team (Late st Contact Info) Description 04/30/2013 Orders Only [place] [id number] Dave Barragan MD Status post hip replacement (Primary Dx) Social History Tobacco [...] [facility] [address] [place] [address] Joyce Snyder MD [facility] [place] [address] documented as of this encounter Results * XR pelvis 1 view & hips 1 view each (06/19/2013 9:39 AM EDT) Anatomical Region Laterality Modality Pelvis, Hip Bilateral Radiographic Patricia ging 06/19/2013 9:39 AM EDT Narrative 06/19/2013 11:22 AM EDT Examination 1 VIEW PELVIS AND 1 VIEW EACH HIP/BILAT Clinical History BILAT ROBERT ANNL CHK Comparison Multiple examination since 2007. Technique Findings Unchanged appearance of the bilateral cementless total hip arthroplasty. ??No radiolucencies or periprosthetic fracture. Impression Uncomplicated and unchanged bilateral uncemented total hip arthroplasty. Procedure Note Perri Cervantes MD - 06/19/2013 Examination 1 VIEW PELVIS AND 1 VIEW EACH HIP/BILAT Clinical History BILAT ROBERT ANNL CHK Comparison Multiple examination since 2007. Technique Findings Unchanged appearance of the bilateral cementless total hip arthroplasty.No radiolucencies or periprosthetic fracture. Impression Uncomplicated and unchanged bilateral uncemented total hip arthroplasty. Dave Barragan MD IMG DX ORDERABLES documented in this encounter Visit Diagnoses Diagnosis Status post hip replacement- Primary Hip joint replacement by other means Status post hip replacement Hip joint replacement by other means documented in this encounter Care Teams Manufacturing Business Analyst Relationship Specialty Start Date End Date Carlos Hernandez DO [address] [place] [address] PCP - General 08/16/10 02/25/23 documented as of this encounter
--- OUTSIDE RECORDS SUMMARY | 2024-09-23 14:24 | XMS_ITS | Encounter Summary ---
Author Organization [facility] [place] [address] Care Team Providers Care Hat Block Bench Hand Name Role Phone Carlos Hernandez DO Primary Care Provider [phone] Reason for Visit * Reason Comments Shortness of Breath Cardiac Valve Problem Encounter Details Date Type Department Care Team (Late st Contact Info) Description 08/19/2013 7:40 AM EST Office Visit Cardiology at [address] [phone] Karlene Ann PA (aortic stenosis) Discharge Disposition: Home Social History Tobacco Use [...] Sign Reading Time Taken Comments Blood Pressure 120/78 08/19/2013 7:43 AM EST Pulse 62 08/19/2013 7:43 AM EST Temperature - - Respiratory Rate - - Oxygen Saturation 96% 08/19/2013 7:43 AM EST Inhaled Oxygen Concentration - - Weight 138.3 kg (305 lb) 08/19/2013 7:43 AM EST Height 177.8 cm (5' 10) 08/19/2013 7:43 AM EST Body Mass Index 43.76 08/19/2013 7:43 AM EST documented in this encounter Progress Notes * Karlene Ann PA - 08/19/2013 8:28 AM EST Pre-Cardiac Catheterization Assessment History: Raghu Rosenthal here to be evaluated prior to planned diagnostic cardiac catheterization. He is anticipating aortic valve surgery. He recently saw Dr. Snell to discuss this. Coronary angiography is required before the final decision proceeding with valve surgery. (See Dr. Snell's note below) Mr. Rosenthal is a 67-year-old obese gentleman who has had an echo done first at the [place], then [facility], and he has dobutamine stress done here. Each echo puts his valve area right around the 1cm yennifer. [facility] got 1.2, [facility] got [facility]. His [...] be admitted to the hospital for this. I reviewed his list of allergies. He reports a vague constellation of symptoms associated with contrast. He has had cerebral angiography without problems. He also reports a reaction to prednisone. Hereports that it caused leg cramping. He denies rash or anaphylaxis. Stage HR BP Rest 63 148/70 Low [...] as noted below. Findings discussed with referring. Current Facility-Administered Medications on File Prior to Visit Medication Dose Route Frequency Provider Last Rate Last Dose ??? metoprolol (LOPRESSOR) injection 2.5 mg 2.5 mg Intravenous Q5 Min PRN Garth Watt MD 2.5mg at 08/04/13 0915 Current Outpatient Prescriptions on File Prior to Visit Medication Sig Dispense Refill ??? losartan (COZAAR) 100 mg tablet Take [...] MG = 1 Tablet(s), PO, Q6H,PRN ??? chlorhexidine (HIBICLENS) 4 % external liquid Apply topically daily as needed. Shower from headto toe with Chlorhexidine the night before surgery . 120 mL 0 Allergies Allergen Reactions ??? Vicodin (Hydrocodone-Acetaminophen) Shortness Of Breath Problems breathing ??? Morphine Sulfate Nausea And Vomiting ??? Amoxicillin Trihydrate ??? Bee Venom (Honey Bee) ??? Clarithromycin ??? Hydrocodone Bit ??? Indomethacin ??? Lansoprazole ??? Lipitor (Atorvastatin) Joint pain ??? Other (Unclassified Drug) IV dyes ??? Pravastatin Sodium ??? Prednisone ??? Tetracyclines PMH: Known CAD: Coronary Risk factors: Smoking:quit Hypertension: pos Diabetes: neg Lipid disorder: pos Physical Exam: He appears well, in no apparent distress. Alert and oriented times three, pleasant and cooperative. Filed Vitals: 08/19/13 0743 BP: 120/78 Pulse: 62 HEENT: No JVD or carotid distortions. Lungs: Clear to A+P Cor: NSR, S1 and S2 physiologic. No precordial heaves or thrills. PMI Unremarkable.4/6 audible murmur. Abd: soft, nontender, no organomegaly or bruits. Healed midline incision. Ext: Beny's test (right) normal Neuro: physiologic Assessment: Aortic stenosis Plan: Elective cardiac catheterization I discussed this patient with Dr. Williams Gu. In particular we discussed the maintenance of his reported sensitivity to prednisone and IV contrast. We will treat as necessary. 1. A discussion was held reviewing the benefits and attendant risks of diagnostic or therapeutic catheterization. The risks include, but are not limited to: stroke, , myocardial infarction, bleeding, limb loss, infection, dye reaction, vascular injury, arrhythmias. If an intervention is performed, risks would include the potential for vessel closure, need for emergency CABG, subacute closure, restenosis. The patient appears to understand these risks and benefits. The informed consent was signed. 2. Laboratory screening will be obtained before the procedure as ordered. 3. The patient's medications, NPO status after MN and other details of the planned procedure were discussed. Questions were addressed. 4. Follow up will be dependent on the results of the cardiac catheterization. documented in this encounter Plan of Treatment Upcoming Encounters Date Type Department Care Team (Late st Contact Info) Description 12/18/2024 2:00 PM EDT Office Visit Dermatology at [address] [phone] Joyce Snyder MD [facility] [place] [address] documented as of this encounter Visit Diagnoses Diagnosis (aortic stenosis) Aortic valve disorders documented in this encounter Care Teams Hat Block Bench Hand Relationship Specialty Start Date End Date Carlos Hernandez DO [address] [address] PCP - General 08/16/10 02/25/23 documented as of this encounter
--- OUTSIDE RECORDS SUMMARY | 2024-09-23 14:24 | XMS_ITS | Encounter Summary ---
Author Organization [facility] Address [facility] [place] [address] Care Team Providers Care Swine Nutritionist Name Role Phone Carlos Hernandez DO Primary Care Provider [phone] Encounter Details Date Type Department Care Team (Late st Contact Info) Description 05/04/2011 Abstract [place] [phone] Kristin Ortega RN Social History Tobacco Use Types Packs/Day [...] at [facility] [address] [place] [address] Joyce Snyder MD [facility] [place] [address] documented as of this encounter Visit Diagnoses Not on filedocumented in this encounter Care Teams Swine Nutritionist Relationship Specialty Start Date End Date Carlos Hernandez DO [address] [place] [address] PCP - General 08/16/10 02/25/23 documented as of this encounter
--- OUTSIDE RECORDS SUMMARY | 2024-09-23 14:24 | XMS_ITS | Encounter Summary ---
Author Organization [facility] [place] [address] Care Team Providers Care Assistant To The Vice President Name Role Phone Carlos Hernandez DO Primary Care Provider Encounter Details Date Type Department Care Team (Late st Contact Info) Description 07/21/2013 8:40 AM EDT Office Visit Cardiology at [address] [phone] Williams Miranda MD Dyspnea on exertion; Aortic stenosis Discharge Disposition: Home Social History [...] Sign Reading Time Taken Comments Blood Pressure 150/80 07/21/2013 8:44 AM EDT Pulse 58 07/21/2013 8:44 AM EDT Temperature - - Respiratory Rate - - Oxygen Saturation 96% 07/21/2013 8:44 AM EDT Inhaled Oxygen Concentration - - Weight 140.2 kg (309 lb) 07/21/2013 8:44 AM EDT Height 177.8 cm (5' 10) 07/21/2013 8:44 AM EDT Body Mass Index 44.34 07/21/2013 8:44 AM EDT documented in this encounter Patient Instructions * Patient Instructions* Williams Miranda MD - 07/21/2013 10:08 AM EDT We will have you come back in Novemeber for s dobutamine stress echo and i will see you the same day. Please consider going back to using your CPAP (check with Dr. Hernandez) and ask Dr. Hernandez about your taking Hyzaar and hydrochlorothiazide at the same time. documented in this encounter Progress Notes * Williams Miranda MD - 07/23/2013 4:38 PM EDT Mr. Rosenthal is a pleasant 67-year-old gentleman sent for evaluation of newly discovered aortic stenosis. He had been unaware of any heart murmur until a few years ago when this was noted at the [facility]. More recently he had an echocardiogram that was done at [facility], and this revealed a left ventricle without hypertrophy or wall motion abnormalities. His ejection fraction was read as hyperdynamic at 80%. The right ventricle was said to be mildly hypertrophied. His aortic valve was described as sclerotic, probably trileaflet, with no regurgitation. There is a peak gradient of 56 mmHg and a meangradient of 29 mmHg with a DOI of 0.3 and a valve area of 1.2 cm2. There was trace mitral regurgitat ion, and estimated PA systolic pressure was said to be upper limits of normal at 38. Of note, the IVC collapsed with inspiration and the ascending aorta was described as normal in size as 30 mm. The summary described a technically limited study and moderate to severe aortic stenosis with a valve area of 1.2 cm2. A hyperdynamic left ventricle was noted compared with an earlier study of January 2011 and noted that that study was technically limited and aortic stenosis was not apparent although a thickened valve was noted. He saw Anam Miner at [facility] about a month ago who told Mr. Rosenthal that his aortic valve was blockedand that he might need an aortic valve replacement in the future, but he shouldn???t worry about itnow. Mr. Rosenthal and his describe him as active in that he does his yard work, runs after the [employer] and works on his home. When asked about chest discomfort, he notes cramps in his shoulders, but this occurs really only when he is at rest. He does note, however, that if he tries to run upstairs or when hiking, he may have to stop and rest for up to 10 minutes, mostly because he runs out of breath. Once he rests, he can then resume his activity. On further questioning, he notes that this has been increased over the past year and he is not able to keep up with his . He also describes a feeling of a ???tired?? feeling in his chest but no heaviness or pressure. He notes occasional shortness of breath in bed and feels like he should sit up. When asked as to his activity level, he does feel he is physically limited. He notes he more recently has been napping or taking a break in the afternoon but gives a history of chronic snoring and a past use of CPAP which he does not nowuse. There is no family history of heart disease. He quit smoking in 2000 and prior to that smoked a half a pack a day for 20 years. There is no present history of diabetes. He does have a history ofhypertension and elevated cholesterol. Of note, he has not tolerated statins. Past Medical History: He is status post total hip replacement bilaterally and has a history of psoriatic arthritis. He is status post a panniculectomy. He is status post subarachnoid hemorrhage without evidence of an aneurysm or other vascular malformation and was admitted here in January of 2007 for this. He is status post diverticulitis and partial colectomy with a temporary colostomy which has been revised. This occurred in 2004 and 2005. He gives a varied history of allergy to contrast dyes. 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 He did have an abnormality on MRI. The etiology of that was never determined. Family History: His father at age 61 with Alzheimer???s disease and his mother at age 77.She had cancer but apparently in her sleep. He has three brothers, ages 70, 63, and 57, and a sister age 60 who are all healthy. 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 He has been for 42 years and has three daughters ages 39, 36, and 34. The 36-year-old has lupus. He drinks alcohol; by description three or more beers a day. He is somewhat vague about this and recognizesthat he had an alcohol problem when he was younger. From this history, I have to wonder if he is drinking more than he realizes. In 2007, he had a dobutamine stress echo that showed normal global and segmental biventricular systolic function with an estimated ejection fraction of 70%. No hemodynamically significant valvular disease was noted. He received incremental doses of dobutamine to a peak of 30 mcg/kg/minute, achieving a heart rate of 139 which is 87% of his maximum predicted. His blood pressure went to 134/64. He was asymptomatic and hemodynamically stable. He developed [address] segment depressions inferiorly and with stress all left ventricular segments became appropriately hyperdynamic. He also had a stress thallium done in August of 2007, and this showed somewhat decreased exercise capacity but no abnormal myocardial perfusion. BP 150/80 Pulse 58 Ht 177.8 cm (5' 10) Wt 140.161 kg (309 lb) BMI 44.34 kg/m2 SpO2 96% Physical Examination: On physical examination, Mr. Rosenthal is a morbidly obese, 67-year-old gentleman. He has a very anxious look to him. His pulse is 58 and regular and his blood pressure 150/80. He weighs 309 pounds and is 5 feet 10 inches tall, giving him a body mass index of 44.34 kg/m2. Skin is warm and dry without obvious rashes or lesions. There is loss of adnexal structures in both lower extremities bilaterally. Head, ears, eyes, nose and throat are unremarkable with full extraocular motions. His thyroid gland is not enlarged. His chest is clear to percussion and auscultation. On cardiovascular examination, his jugular venous pressure is not seen. The first and second heart sounds aresingle with some decrease in aortic closure. There is a 3/6 systolic ejection murmur heard best at the right upper sternal border with radiation into his carotids. His carotid pulses are somewhat decreased in volume but do not seem delayed. I appreciate no extra sounds or diastolic murmurs. His pulses are full and equal without bruits with some difficulty feeling his femoral pulses due to his obesity. His abdomen is markedly obese without palpable organomegaly. His extremities have no edema. Neurologically he is oriented and alert and there are no obvious focal deficits. Impression and Plan: My impression is of a 67-year-old gentleman with morbid obesity and a physicalexamination and recent echo consistent with moderate aortic stenosis. His symptomatology is consistent with limiting dyspnea which could be an angina equivalent. It is difficult to determine if this is due to his poor physical condition and morbid obesity, or possibly due to co-existing coronary disease that has not previously been suspected. Of note, he does have significant risk factors. If, infact, his aortic stenosis is only moderate, as his echocardiogram and physical examination would suggest, it is not likely that these symptoms are due to the aortic stenosis although this could be adding to his discomfort if, in fact, he does have significant co-existing coronary disease. I think the next step should be to repeat a dobutamine stress echo as he had in 2007 and see if we can find any evidence of provokable ischemia prior to considering cardiac catheterization. I have discussed this with him and his at length. They understand this and wish to proceed. We will schedule this for July. documented in this encounter Plan of Treatment Upcoming Encounters Date Type Department Care Team (Late st Contact Info) Description 12/18/2024 2:00 PM EDT Office Visit Dermatology at [address] [phone] Joyce Snyder MD [facility] [place] [address] documented as of this encounter Results * Echo pharm stress test (DSE) (08/04/2013 9:39 AM EST) EF [address] [employer] Anatomical Region Laterality Modality Other 08/04/2013 Narrative 08/04/2013 10:42 AM EST Procedure: ? Stress Echocardiogram Patient: ? KARLA VILLATORO W ?(Age): 1945(67) Med Rec#: ?[id number] ? Sex: ?M ? Site Loc: ?[facility] ? Ht / Wt: ??177.8(cm)/136.3 Pt. Loc: ? Echo Lab ? BSA: ?2.59 Study Date: ?08/04/2013 ? Pt. Type: Outpatient Tape: ? Referring: Williams Miranda MD Shipping And Receiving Supervisor: Lesvia Benitez Nurse: Lesvia Aguilar Diagnosis: ??Ischemia (414.9) CPT Code(s): ??Doppler LTD (05324), ??ECG Interpretation (34075), ??Stress Echo (52043), ??Color Doppler (60060), Indication(s):Medication(s): ?? Rhythm: Stage ?HR ?BP Rest [...] ?Normal ?Normal ? Mid-Inferoseptal ?Normal ?Normal ? [place]-Septal ? Normal ?Normal ? [place]-Anterior ? Normal ?Normal ? [place]-Lateral ?Normal ?Normal ? [place]-Inferior ? Normal ?Normal ? [place]-Tip ?Normal ?Normal ? Chambers ?Value ?Units (Range) [...] 08/04/2013 10:29:15 Images reviewed and interpretation verified [facility] Cardiac Ultrasound Laboratory Procedure Note Damian Wynn MD - 08/04/2013 Procedure: Stress Echocardiogram Patient: KARLA Maldonado (Age): 1945(67) Med Rec#: [id number] Sex: M Site Loc: [facility] Ht / Wt: 177.8(cm)/136.3 Pt. Loc: Echo Lab BSA: 2.59 Study Date: 08/04/2013 Pt. Type: Outpatient Tape: Referring: Williams Miranda MD Shipping And Receiving Supervisor: Lesvia Benitez Nurse: Lesvia Aguilar Diagnosis: Ischemia (414.9) CPT Code(s): Doppler LTD (81905), ECG Interpretation (90552), Stress Echo (06707), Color Doppler (08448), Indication(s):Medication(s): Rhythm: Stage HR BP Rest 63 [...] Normal Mid-Inferior Normal Normal Mid-Inferoseptal Normal Normal [place]-Septal Normal Normal [place]-Anterior Normal Normal [place]-Lateral Normal Normal [place]-Inferior Normal Normal [place]-Tip Normal Normal Chambers Value Units (Range) LV [...] 08/04/2013 10:29:15 Images reviewed and interpretation verified [facility] Cardiac Ultrasound Laboratory Williams Miranda MD ECHO ORDERABLES documented in this encounter Visit Diagnoses Diagnosis Dyspnea on exertion Other dyspnea and respiratory abnormality Aortic stenosis Aortic valve disorders Dyspnea on exertion Other dyspnea and respiratory abnormality Aortic stenosis Aortic valve disorders documented in this encounter Care Teams Assistant To The Vice President Relationship Specialty Start Date End Date Carlos Hernandez DO [address] [place] [address] PCP - General 08/16/10 02/25/23 documented as of this encounter
--- OUTSIDE RECORDS SUMMARY | 2024-09-23 14:24 | XMS_ITS | Encounter Summary ---
Author Organization [facility] Address [facility] [place] [address] Care Team Providers Care Caravan Park And Camping [employer] Manager Name Role Phone Carlos Hernandez DO Primary Care Provider Reason for Visit * Reason Comments Psoriatic Arthropathy Encounter Details Date Type Department Care Team (Late st Contact Info) Description 10/31/2012 10:15 AM EST [place] [id number] Lan Singh MD [facility] [place] [address] Psoriasis (Primary Dx) Discharge Disposition: Home Social [...] Sign Reading Time Taken Comments Blood Pressure 136/60 10/31/2012 10:22 AM EST Pulse 62 10/31/2012 10:22 AM EST Temperature 36.6 ??C (97.9 ??F) 10/31/2012 10:[address] Respiratory Rate - - Oxygen Saturation 94% 10/31/2012 10:22 AM EST Inhaled Oxygen Concentration - - Weight 135.2 kg (298 lb) 10/31/2012 10:22 AM EST Height 171.5 cm (5' 7.5) 10/31/2012 10:22 AM ES T Body Mass Index 45.98 10/31/2012 10:22 AM EST documented in this encounter Progress Notes * Luigi Lizarraga - 10/31/2012 11:14 AM ESTAddended by: LUIGI LIZARRAGA on: 10/31/2012 11:14 AM Modules accepted: Orders * Lan Singh MD - 10/31/2012 11:00 AM EST Rheumatology Outpatient Progress Note Problem List Patient Active Problem List Diagnoses Date Noted ??? Obesity 04/22/2012 ??? HTN [...] Raghu Rosenthal is a 67 y.o. male with psoriasis, psoriatic arthritis, sleep apnea, osteoarthritis,dyshidrotic eczema, AVN of both hips, fibromyalgia, status post arachnoid hemorrhage in 01/28/2007 without a clear cut cause, and status post bilateral hip replacement, the right in 2001 and the leftin 2008 with good results. Recent worsening of psoriasis in spite of MTX ROS: General (-)fevers, (-)chills, (-)night sweats, (-)wt loss/gain, +)fatigue HEENT (-)vision change, (-)oral ulcers, (-)dry eyes, (-)dry mouth, (-)hair loss CVS (-)chest pain, (-)palpitations, (-)pedal edema Pulm (-)shortness of breath, (-)JORDAN, (-)wheezes, (-)cough, (-)pleuritic pain GI (-)N/V, (-)abdominal pain, (-)emesis, (-)change in appetite (-)hematuria, (-)dysuria MS (-)muscle weakness, +)joint pain, (+)joint swelling Endo (-)thyroid disorders, (-)diabetes Neuro (-)focal weakness, (-)paresthesias, (-)gait instability. Skin (-)Raynaud's, (-)rashes, (-)ulcers, (-)photo sensitivity Psych (-) mood disorder Current Outpatient Prescriptions Medication Sig Dispense Refill ??? UNABLE TO FIND as needed. O'Narayan hand cream OTC ??? methotrexate 2.5 mg tablet Take 6 tablets by mouth once a week. 72 tablet 1 ??? Magnesium Chloride 64 mg TbEC Take by mouth. ??? LOSARTAN/HYDROCHLOROTHIAZIDE (HYZAAR ORAL) Take by mouth. ??? citalopram (CELEXA) 20 mg tablet Take 20 mg by mouth daily. ??? traZODone (DESYREL) 50 mg tablet Take 50 mg by mouth nightly. ??? aspirin 81 mg chewable tablet Take 81 mg by mouth daily. ??? amlodipine (NORVASC) 5 mg tablet Take 5 mg by mouth daily. ??? Fenofibric Acid (TRILIPIX) 135 mg CpDR Take 1 tablet by mouth daily. ??? epiNEPHrine (EPIPEN JR.) 0.15 mg/0.3 mL PnIj injection Inject into the muscle as needed. ??? ranitidine (ZANTAC) 150 mg tablet Take 150 mg by mouth 2 times daily. ??? folic acid (FOLVITE) 1 mg tablet Take 1 mg by mouth daily. ??? hydrochlorothiazide (HYDRODIURIL) 25 mg tablet Take 25 mg by mouth daily. ??? ibuprofen (ADVIL;MOTRIN) 800 mg tablet 800 MG = 1 Tablet(s), PO, Q6H,PRN ??? CALCIUM ORAL ??? ustekinumab (STELARA) 90 mg/mL Syrg Inject 1 mL subcutaneously every 30 days. Then every twelveweeks 1 mL 3 ??? DISCONTD: augmented betamethasone dipropionate (DIPROLENE AF) 0.05 % cream Apply topically 2 times daily. 30 g 3 Allergies Allergen Reactions ??? Atorvastatin Calcium ??? Morphine Sulfate Nausea And Vomiting ??? Acetaminophen ??? Amoxicillin Trihydrate ??? Bee Venom (Honey Bee) ??? Clarithromycin ??? Hydrocodone Bit ??? Indomethacin ??? Lansoprazole ??? Pravastatin Sodium ??? Prednisone ??? Tetracycline ??? Tetracyclines Physical Exam: BP 136/60 Pulse 62 Temp(Src) 36.6 ??C (97.9 ??F) (Oral) Ht 171.5 cm (5' 7.5) Wt 135.172 kg(298 lb) BMI 45.98 kg/m2 SpO2 94% General: AAOx3, NAD, pleasant HEENT: PERRL, Mucous membranes are moist, no oral mucosal ulcerations, temporal artery palpable Neck: Supple, no lymphadenopathy, full range of motion. Cardiovascular: RR, (-)murmurs, rubs, or gallops. Lungs: Clear to auscultation bilaterally, (-)R/R/W Abdomen: Soft, nontender, nondistended, normal active bowel sounds, no hepatosplenomegaly.Massivelyobese Back: Nontender over the spine and costovertebral angles bilaterally. Neuro: Alert and oriented x3. Cranial nerves II through XII grossly intact. Strength 5/5 throughout, Sensation to light touch is grossly normal throughout. DTRs are 2+ throughout. Skin: (-)ulcers, (+rash psoriasis Extremities Shoulders: FROM, non-tender to palpation Elbows:FROM, (-)pain, (-)nodules Wrists: FROM, no swelling, non-tender Hands: + synovitis, no MCP compression tenderness, full claw and fist. Hips: FROM Knees: (-)effusions, non-tender ROM Ankles: FROM, non-tender, no swelling Feet: no MTP compression tenderness Labs: pending Assessment: Raghu Rosenthal is a 67 y.o. male who returns in follow up of psoriasis psoritic arthritis Plan: Add ustekinumab because of palmar plantar psoriasis Keep MTX for the time being but may discontinue RTC May documented in this encounter Plan of Treatment Upcoming Encounters Date Type Department Care Team (Late st Contact Info) Description 12/18/2024 2:00 PM EDT Office Visit Dermatology at [facility] [address] [place] [address] Joyce Snyder MD [facility] [facility] [place] [address] documented as of this encounter Procedures Procedure Name Priority Date/Time Associated Diagnosis Comments DIFFERENTIAL, AUTOMATED Routine 10/31/2012 11:14 AM EST SEDIMENTATION RATE Routine 10/31/2012 11 :14 AM EST Psoriasis CBC (WITH DIFF) Routine 10/31/2012 11:14 AM EST Psoriasis CRP, CARDIAC RISK (HS CRP) Routine 10/31/2012 11:14 AM EST Psoriasis COMPREHENSIVE METABOLIC PANEL Routine 10/31/2012 11:14 AM EST Psoriasis documented in this encounter Results * Differential, Automated (10/31/2012 11:14 AM EST) Neutrophil % 60.1 34.0 - 71.0 % CERNER MILLENNIUM Neutrophil Absolute 3.10 1.50 - 6.30 x10(3)/mcL CERNER MILLENNIUM Lymph % 28.1 19.0 - 53.0 % CERNER MILLENNIUM Lymphocytes Abs 1.4 1.0 - 3.6 x10(3)/mcL CERNER MILLENNIUM Monocyte % 5.4 4.0 - 13.0 % CERNER MILLENNIUM Monocyte Abs 0.3 0.2 - 1.0 x10(3)/mcL CERNER MILLENNIUM Eos % 5.6 0.0 - 7.0 % CERNER MILLENNIUM Eosinophils Abs 0.3 0.0 - 0.5 x10(3)/mcL CERNER MILLENNIUM Basophil % 0.6 0.0 - 2.0 % CERNER MILLENNIUM Baso [...] 0.05 x10(3)/mcL CERNER MILLENNIUM Blood specimen (specimen) 10/31/2012 11:14 AM EST 10/31/2012 11:26 AM EST Lan Singh MD HEMATOLOGY ORDERABLE S [facility] [employer] * High Sensitivity CRP (10/31/2012 11:14 AM EST) C-Reactive Protein High Sensitivity 3.0 mg/L CERNER MILLENNIUM Comment: Interpretations: 1) For [...] prevention. ??Circulation 2003; 107:363-369 Blood specimen (specimen) 10/31/2012 11:14 AM EST 10/31/2012 11:26 AM EST Narrative Resulting Agency Comment Spec In Lab Lan Singh MD CHEMISTRY ORDERABLES Performing Organization Address [facility] de Phone Number [facility] * Sedimentation rate (10/31/2012 11:14 AM EST) Sedimentation Rate Automated 6 0 - 15 mm/hr [facility] MILL[facility] Blood specimen (specimen) 10/31/2012 11:14 AM EST 10/31/2012 11:26 AM EST Narrative Resulting Agency Comment Spec In Lab Lan Singh MD HEMATOLOGY ORDERABLE S Performing Organization Address [facility] de Phone Number [facility] [facility] * (ABNORMAL) Comprehensive metabolic panel (non-fasting) (10/31/2012 11:14 AM EST) Glucose 93 60 - 199 mg/dL [facility] Comment:Diabetes: >=200 mg/d L plus symptoms Blood Urea Nitrogen 20 10 - 20 mg/dL CERNER MILLENNIUM Creatinine 1.16 0.80 - 1.50 mg/dL CERNER MILLENNIUM Comment: Please note that the pediatric reference intervals supplied above were not validated at [facility]. Results from pediatric patients should be interpreted in conjunction to the patient's age, height and muscle mass. Sodium 142 135 - 145 mmol/L CERNER MILLENNIUM Potassium 4.1 3.5 - 5.0 mmol/L CERNER MILLENNIUM Comment: Please note: ??Patients with WBC >100,000 may have falsely elevated Potassium levels. ??For accurate Potassium quantification in these patients send serum separator tube (gold top) for subsequent determinations. ??Contact the Clinical Chemistry Laboratory if there are any questions. Chloride 103 98 - 107 mmol/L CERNER MILLENNIUM Carbon Dioxide 30 22 - 31 mmol/L CERNER MILLENNIUM Anion Gap 9 5 - 15 mmol/L CERNER MILLENNIUM Calcium 9.7 8.5 - 10.5 mg/dL CERNER MILLENNIUM Protein, Total 7.0 6.4 - 8.3 gm/dL CERNER MILLENNIUM Albumin 4.5 3.2 - 5.2 gm/dL CERNER MILLENNIUM Aspartate Aminotransferase 28 0 - 39 unit/L CERNER MILLENNIUM Alanine Aminotransferase 32 0 - 55 unit/L CERNER MILLENNIUM Alkaline Phosphatase 27(L) 40 - 120 unit/L CERNER MILLENNIUM Bilirubin, [...] diabetic kidney disease. References: http://nkdep.nih.gov/resources/NKDEP_Suggestn4Labs_0606_508.pdf http://www.kidney.org/professionals/kls/pdf/faq_gfr.pdf Tony K, Adeel NA, Joseph AK, Chip TS, Filemon AD, Fern ADRIEL. Relative performance of the MDRD and CKD-EPI equations for estimating glomerular filtration rate among patients with varied clinical presentations. Clin J Am Soc Nephrol;6:1963-72. Blood specimen (specimen) 10/31/2012 11:14 AM EST 10/31/2012 11:26 AM EST Narrative Resulting Agency Comment Spec In Lab Lan Singh MD CHEMISTRY ORDERABLES CERNER MILLENNIUM * (ABNORMAL) CBC (with Diff) (10/31/2012 11:14 AM EST) White Blood Cell 5.2 4.0 - 10.0 x10(3)/mc L CERNER MILLENNIUM Red Blood Cell 4.55(L) 4.63 - 6.08 x10(6)/mc L CERNER MILLENNIUM Hemoglobin 14.0 13.7 - 17.5 gm/dL CERNER MILLENNIUM Hematocrit 41.9 40.0 - 51.0 % CERNER MILLENNIUM Mean Cell Volume 92.1(H) 79.0 - 92.0 fL CERNER MILLENNIUM Mean Cell Hemoglobin 30.8 25.6 - 32.2 pg CERNER MILLENNIUM Mean Cell Hemoglobin Concentration 33.4 32.0 - 36.5 gm/dL CERNER MILLENNIUM Platelet 174 145 - 370 x10(3)/mc L CERNER MILLENNIUM RDW Standard Deviation 47.0(H) 35.0 - 46.0 fL CERNER MILLENNIUM RDW coefficient of variation 14.2 10.9 - 14.4 % CERNER MILLENNIUM Mean Platelet Volume 9.8 9.0 - 12.0 fL CERNER MILLENNIUM Blood specimen (specimen) 10/31/2012 11:14 AM EST 10/31/2012 11:26 AM EST Narrative Resulting Agency Comment Spec In Lab Lan Signh MD HEMATOLOGY ORDERABLE S Performing Organization Address City/State/[facility] Co ct Phone Number [facility] documented in this encounter Visit Diagnoses Diagnosis Psoriasis- Primary Other psoriasis documented in this encounter Care Teams [employer] Manager Relationship Specialty Start Date End Date Carlos Hernandez DO [address] [place] [address] PCP - General 08/16/10 02/25/23 documented as of this encounter
--- OUTSIDE RECORDS SUMMARY | 2024-09-23 14:24 | XMS_ITS | Encounter Summary ---
Author Organization [facility] Address [facility] [place] [address] Care Team Providers Care Data Analysis Assistant Name Role Phone Carlos Hernandez DO Primary Care Provider [phone] Reason for Visit * Reason Comments Medication Refill Encounter Details Date Type Department Care Team (Late st Contact Info) Description 10/14/2012 [place] [address] Lan Signh MD [facility] [place] [address] Social History Tobacco Use Types Packs/Day Years [...] 2:00 PM EDT Office Visit Dermatology at [facility] [address] [place] [address] Joyce Snyder MD [facility] [place] [address] documented as of this encounter Visit Diagnoses Not on filedocumented in this encounter Care Teams Data Analysis Assistant Relationship Specialty Start Date End Date Carlos Hernandez DO [address] [place] [address] PCP - General 08/16/10 02/25/23 documented as of this encounter
--- OUTSIDE RECORDS SUMMARY | 2024-09-23 14:24 | XMS_ITS | Encounter Summary ---
Author Organization [facility] [address] Care Team Providers Care Insole Toe Snipping Machine Operator Name Role Phone Carlos Hernandez DO Primary Care Provider Reason for Referral * Physical Therapy (Routine) - Complete - Patient Will Schedule External Appt Specialty Diagnoses / Procedures Referred By Guanaco marie Referred To Contact Physical Therapy Diagnoses IT band syndrome Rosemarie Badillo APRN [facility] [place] [address] Referral ID Status Reason Start Date Expiration Date Visits Requested Visits Authorized [id number] Complete - Patient Will Schedule External Appt Evaluate and Treat 05/05/2011 11/01/2011 1 1 Reason for Visit * Reason Comments Aftercare Of [facility] ROBERT DOS 12/10/01 Encounter Details Date Type Department Care Team (Late st Contact Info) Description 05/05/2011 11:10 AM EDT Office [place] [address] CLINIC, Rosemarie Gutierrez APRN 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); IT band syndrome; IT band syndrome Discharge Disposition: Home Social History Tobacco Use [...] Sign Reading Time Taken Comments Blood Pressure 132/70 05/05/2011 11:47 AM EDT Pulse 63 05/05/2011 11:47 AM EDT Temperature - - Respiratory Rate - - Oxygen Saturation - - Inhaled Oxygen Concentration - - Weight 128.2 kg (282 lb 9.6 oz) 011 11:47 AM EDT Height 177.8 cm (5' 10) 05/05/2011 11: 47 AM EDT Body Mass Index 40.55 05/05/2011 11:47 AM EDT documented in this encounter Progress Notes * Rosemarie Badillo, EDITOR HOUSE [employer]GAN - 05/05/2011 1:58 PM EDT DATE OF SERVICE: 05/05/2011 CHIEF COMPLAINT: Mr. Rosenthal reports back to clinic for followup on his bilateral total hips. PERTINENT SURGICAL HISTORY: On 12/10/2001, right total hip arthroplasty by Dr. Barragan. On 07/14/2008, left total hip arthroplasty by Dr. Barragan. SUBJECTIVE: Mr. Rosenthal reports that he is really not having any problems with his hips per se, but that his right knee has been bothering him at times to the point where he went to distance walk. The majority of his discomfort seems to be in the lateral side of the knee and he states it radiates up the lateral side of the thigh. He denies any numbness or tingling. He has no accompanying back pain. His leg does not buckle nor give way. He notes it more when he is distance walking. He and his go to [place] each year during, I believe, November and December for a two month trip and he just cannot seem to keep with her. He denies any accidents or injury to his knee. The knee does not swell and he is unaware of any clicking, popping, or locking. He uses no assistive devices to get around. He has never had any surgery to it nor injections and he takes ibuprofen 800 mg when he needs it for body aches. He is not doing that consistently for the knee/thigh issue. In regards to the hips himself, he is really not bothered. When questioning him if he has any tenderness on the lateral side of the hip when he lies on it, he states indeed he does. He had not really thought about it. He denies any groin or buttock pain, however, on the right side. Mr. Rosenthal has also been diagnosed now with posttraumatic stress disorder and he is in counseling for this. There is some history of lability to his moods and he is sometimes he is just not getting out and exercising like he used to. He is trying to get some counseling to just get himself on a more even plane in regards to his emotions. He thinks that the counseling that he is going through now is helpful. OBSERVED: The patient reports back to clinic accompanied by his who is very very supportive of him. He has noted that he has a lingering abductor insufficiency leaning a little bit more to the right than the left when he stands, but once up in walking, his gait smoothes out nicely. While seated, I can fairly each femur without producing any pain or apprehension. He has no shucking, axial loading of either femur. No intraarticular pain with rotation of the femur's range of motion or hip range of motion today. It is noted that he is moderately tender over right greater trochanter. His IT band is tight and he is also exclusively tender at the terminus of the Gerdy's tubercle. Examining the right knee, his range of motion on that side is 0 to 115. The knee is stable to varus and valgus stress. He really has no effusion, heat, or erythema, but he has a palpable click that seems to be coming from the retropatellar area. Narinder's maneuver is negative for any catching or locking today. There is no heat in the knee. He has normal sensation throughout the lower extremities to light touch. No peripheral edema. Peripheral pulses are 2+. X-RAY: Films of the hips only today and they reveal intact bilateral hip prosthesis and nothing to suggest malposition, loosening, or infection. ASSESSMENT: 1. Stable bilateral total hips. 2. Tight iliotibial band which has now caused him tenderness of the right greater trochanter and terminus of the iliotibial band. PLAN: We reviewed his total joint precautions. First of all, I will let him know that his IT band was little tight and we spoke about what that meant and that is not a surgical issue, but could be treated with safely stretching the IT band. He apparently is still using a pillow between his knees and has been doing that for years that might partially explained the tightness in this band and also the fact that it is all deconditioned just with the age of the band and tightness. So, the therapist is going to work on safely stretching the band. He is going to ice his greater trochanter and the Gerdy's tubercle area for 20 minutes twice a day. He realizes he can return for a hip bursal injection if he needs to, but only if conservative efforts of stretching the band fail. In regards to his knee, probably taking a little ibuprofen before walks maybe helpful if we can get his bands stretched out. This seemed to be bothering him more than anything else. He maybe able to walk further and more comfortably. He may return for injections to the knees some day, but for right now, the knee seem like a nonsurgical issue. We will see him back in two years for his hips and we may inject his greater trochanter p.r.n. documented in this encounter Plan of Treatment Upcoming Encounters Date Type Department Care Team (Late st Contact Info) Description 12/18/2024 2:00 PM EDT Office Visit Dermatology at [address] [address] Joyce Snyder MD [facility] [place] [address] Scheduled Referrals Name Type Priority Associated Diagnoses Orde r Schedule REFERRAL TO PHYSICAL THERAPY Outpatient Referral Routine IT band syndrome Ordered: 05/05/2011 documented as of this encounter Visit Diagnoses Diagnosis Hip joint replacement by other means- Primary IT band syndrome Other disorder of muscle, ligament, and fascia documented in this encounter Care Teams Insole Toe Snipping Machine Operator Relationship Specialty Start Date End Date Carlos Hernandez DO [address] [place] [address] PCP - General 11/23/10 6/4/23 documented as of this encounter
--- OUTSIDE RECORDS SUMMARY | 2024-09-23 14:24 | XMS_ITS | Encounter Summary ---
Author Organization [facility] Address [facility] [place] [address] Care Team Providers Care Computer Language Coder Name Role Phone Carlos Hernandez DO Primary Care Provider [phone] Reason for Visit * Reason Onset Date Comments Medication Refill 03/13/2013 Encounter Details Date Type Department Care Team (Late st Contact Info) Description 03/13/2013 Refill [place] [address] Lan Singh MD [facility] [place] [address] Psoriasis (Primary Dx) Social History Tobacco Use [...] 2:00 PM EDT Office Visit Dermatology at [facility] [address] [place] [address] Joyce Snyder MD [facility] [place] [address] documented as of this encounter Visit Diagnoses Diagnosis Psoriasis- Primary Other psoriasis documented in this encounter Care Teams Computer Language Coder Relationship Specialty Start Date End Date Carlos Hernandez DO [address] [place] [address] PCP - General 08/16/10 02/25/23 documented as of this encounter
--- OUTSIDE RECORDS SUMMARY | 2024-09-23 14:24 | XMS_ITS | Encounter Summary ---
Author Organization [facility] Address [facility] Krystle [place] [address] Care Team Providers Care Supervisor Residential Name Role Phone Carlos Hernandez DO Primary Care Provider Reason for Visit * Reason Comments Follow-up Encounter Details Date Type Department Care Team (Late st Contact Info) Description 08/24/2011 1:15 PM EST [place] [id number] Lan Singh MD [facility] [place] [place] [address] Psoriatic arthritis (Primary Dx) Discharge Disposition: Home Social History [...] Sign Reading Time Taken Comments Blood Pressure 148/56 08/24/2011 1:34 PM EST Pulse 64 08/24/2011 1:34 PM EST Temperature 36.6 ??C (97.9 ??F) 08/24/2011 1:34 PM ES T Respiratory Rate - - Oxygen Saturation 95% 08/24/2011 1:34 PM EST Inhaled Oxygen Concentration - - Weight 134.3 kg (296 lb) 08/24/2011 1:34 PM EST Height 177.8 cm (5' 10) 08/24/2011 1:34 PM EST Body Mass Index 42.47 08/24/2011 1:34 PM EST documented in this encounter Progress Notes * Lan Singh MD - 08/24/2011 2:07 PM EST DATE OF : 1945 HISTORY OF PRESENT [...] his worst weight. He is going to [place] santiago week or so, but only for a two week period. His major concerns were today, he has increasing weight, he has depression, anger, and anxiety for which he is being seen by psychologist and wire mill rover, who I think is very helpful and [...] 281 and now to 89 [place] Offered bariatric surgery but wants to wait on it. Also has synovial proliferation but only mild tenderness wants to hold on the enbrel RTC 3 m In PTSD program at [place]. Placed on celexa instead of paxil also [...] A) doing well P) same meds RTC May documented in this encounter Plan of Treatment Upcoming Encounters Date Type Department Care Team (Late st Contact Info) Description 12/18/2024 2:00 PM EDT Office Visit Dermatology at [facility] [address] [place] [address] Joyce Snyder MD [facility] [place] [address] documented as of this encounter Visit Diagnoses Diagnosis Psoriatic arthritis- Primary Psoriatic arthropathy documented in this encounter Care Teams Supervisor Residential Relationship Specialty Start Date End Date Carlos Hernandez DO [address] [place] [address] PCP - General 08/16/10 02/25/23 documented as of this encounter
--- OUTSIDE RECORDS SUMMARY | 2024-09-23 14:24 | XMS_ITS | Encounter Summary ---
Author Organization [facility] Address [facility] [place]rystle [place] [address] Care Team Providers Care Electrical Engineering Technician Name Role Phone Carlos Hernandez DO Primary Care Provider [phone] Reason for Visit * Reason Comments Psoriasis Encounter Details Date Type Department Care Team (Late st Contact Info) Description 03/06/2013 10:15 AM EDT Follow-Up [place] [id number] Lna Singh MD [facility] [place] [address] Psoriasis (Primary Dx) Discharge Disposition: Home Social [...] Sign Reading Time Taken Comments Blood Pressure 118/54 03/06/2013 10:08 AM EDT Pulse 61 03/06/2013 10:08 AM EDT Temperature 36.5 ??C (97.7 ??F) 03/06/2013 1 0:08 AM EDT Respiratory Rate - - Oxygen Saturation 97% 03/06/2013 10: 08 AM EDT Inhaled Oxygen Concentration - - Weight 140.9 kg (310 lb 9.6 oz) 013 10:08 AM EDT Height 177.8 cm (5' 10) 03/06/2013 10: 08 AM EDT Body Mass Index 44.57 03/06/2013 10:08 AM EDT documented in this encounter Patient Instructions * Patient Instructions* Yanique Alcazar LPN - 03/06/2013 10:16 AM EDT Welcome to [employer], your secure online access to your electronic medical record at [facility]. Using [employer] you will be able to send messages to your providers, view your test results, renew prescriptions, schedule appointments, and much more. Follow these instructions to enter your personal [employer] account for the first time: 1. Start your internet browser and type [email or web address] into the address bar. 2. In the New User box on the right-hand side of the Welcome page click the link that states, ???I have an activation code.?? 3. On the Identification page, follow these steps: a) Enter your [employer] activation code: Not generated b) Current myD-H Status: Active IMPORTANT: This Activation Code will on the above mentioned date. If you do not sign up for [employer] by this date, you will need to request another activation code. c) Enter your date of , using the calendar tool provided. d) Enter your Zip code. e) Select ???submit?? to go to the next page. 4. On the Create Account page, follow these steps: a) Create a [employer] username. This can???t be changed, so choose one you won???t forget. b) Create a password that???s at least six characters long, and that contains at least two numbers.Your password can be changed at any time. Confirm your password by entering it once more. c) Enter your email address. This will be used to alert you to new information. Confirm your email address by entering it once more. d) Enter your security question. This will be used if you forget your password. e) Enter your security answer. Confirm your security answer by entering it once more. f) Select ???submit?? to view your electronic medical record. If you have any questions about myD-H or your Access Code, please call for [place], for [place] or for [place]. If you need technical support, please e-mail . Remember, [employer] is NOT for urgent needs! Always dial 911 for medical emergencies. documented in this encounter Progress Notes * Lan Singh MD - 03/06/2013 10:46 AM EDT Rheumatology Outpatient Progress Note Problem [...] but not big difference atfer stopping MTX ROS: General (-)fevers, (-)chills, (-)night sweats, (-)wt loss/gain, (+)fatigue HEENT (-)vision change, (-)oral ulcers, (-)dry eyes, (-)dry mouth, (-)hair loss CVS (-)chest pain, (-)palpitations, (-)pedal edema Pulm (-)shortness of breath, (-)JORDAN, (-)wheezes, (-)cough, (-)pleuritic pain GI (-)N/V, (-)abdominal pain, (-)emesis, (-)change in appetite (-)hematuria, (-)dysuria MS (-)muscle weakness, (+)joint pain, (+)joint swelling Endo (-)thyroid disorders, (-)diabetes Neuro (-)focal weakness, (-)paresthesias, (-)gait instability. Skin (-)Raynaud's, (-)rashes, (-)ulcers, (-)photo sensitivity Psych (-) mood disorder Current Outpatient Prescriptions Medication Sig Dispense Refill ??? UNABLE TO FIND as needed. O'Narayan hand cream OTC ??? Magnesium Chloride 64 mg TbEC Take [...] MG = 1 Tablet(s), PO, Q6H,PRN ??? ustekinumab (STELARA) 90 mg/mL Syrg Inject 1 mL subcutaneously every 30 days. Then every twelveweeks 1 mL 3 ??? DISCONTD: ustekinumab (STELARA) 90 mg/mL Syrg Inject 1 mL subcutaneously every 30 days. Then every twelve weeks 1 mL 3 ??? DISCONTD: methotrexate 2.5 mg tablet Take 6 tablets by mouth once a week. 72 tablet 1 ??? DISCONTD: CALCIUM ORAL Allergies Allergen Reactions ??? Atorvastatin Calcium ??? Morphine Sulfate Nausea And Vomiting ??? Amoxicillin Trihydrate ??? Bee Venom (Honey Bee) ??? Clarithromycin ??? Hydrocodone Bit ??? Indomethacin ??? Lansoprazole ??? Other (Unclassified Drug) IV dyes ??? Pravastatin Sodium ??? Prednisone ??? Tetracyclines Physical Exam: BP 118/54 Pulse 61 Temp(Src) 36.5 ??C (97.7 ??F) (Oral) Ht 177.8 cm (5' 10) Wt 140.887 kg (310 lb 9.6 oz) BMI 44.57 kg/m2 SpO2 97% General: AAOx3, NAD, pleasant massively obese HEENT: PERRL, Mucous membranes are moist, no [...] MCP compression tenderness, full claw and fist. Normal nailfold capillaroscopy Hips: FROM Knees: (-)effusions, non-tender ROM Ankles: FROM, non-tender, no swelling Feet: no MTP compression tenderness Labs: pending Assessment: Raghu Rosenthal is a 67 y.o. male who returns in follow up of psoriasis psoriatic arthritis Plan: Start Stelara RTC 3m documented in this encounter Miscellaneous Notes * Addendum Note - Angel Ruchi Jesus Manuel - 03/06/2013 11:01 AM EDTAddended by: RUCHI ORTIZ on: 03/06/2013 11:01 AM Modules accepted: Orders documented in this encounter Plan of Treatment Upcoming Encounters Date Type Department Care Team (Late st Contact Info) Description 12/18/2024 2:00 PM EDT Office Visit Dermatology at [facility] [address] [place] [address] [facility] [place] [address] documented as of this encounter Procedures Procedure Name Priority Date/Time Associated Diagnosis Comments QUANTIFERON-TB GOLD Routine 03/06/2013 1 1:08 AM EDT Psoriasis DIFFERENTIAL, AUTOMATED Routine 03/06/2013 11:08 AM EDT CBC (WITH DIFF) Routine 03/06/2013 11:08 AM EDT Psoriasis COMPREHENSIVE METABOLIC PANEL Routine 03/06/2013 11:08 AM EDT Psoriasis documented in this encounter Results * Differential, Automated (03/06/2013 11:08 AM EDT) Neutrophil % 53.2 34.0 - 71.0 % CERNER MILLENNIUM Neutrophil Absolute 2.37 1.50 - 6.30 x10(3)/mcL CERNER MILLENNIUM Lymph % 28.9 19.0 - 53.0 % CERNER MILLENNIUM Lymphocytes Abs 1.3 1.0 - 3.6 x10(3)/mcL CERNER MILLENNIUM Monocyte % 11.0 4.0 - 13.0 % CERNER MILLENNIUM Monocyte Abs 0.5 0.2 - 1.0 x10(3)/mcL CERNER MILLENNIUM Eos % 6.3 0.0 - 7.0 % CERNER MILLENNIUM Eosinophils [...] 0.05 x10(3)/mcL CERNER MILLENNIUM Blood specimen (specimen) 03/06/2013 11:08 AM EDT 03/06/2013 11:20 AM EDT Lan Singh MD HEMATOLOGY ORDERABLE S [facility] * (ABNORMAL) Comprehensive metabolic panel (non-fasting) (03/06/2013 11:08 AM EDT) [facility] Glucose 107 60 - 199 mg/dL CERNER MILLENNIUM Comment:Diabetes: >=200 mg/d L plus symptoms Blood Urea Nitrogen 26(H) 10 - 20 mg/dL CERNER MILLENNIUM Creatinine 1.25 0.80 - 1.50 mg/dL CERNER MILLENNIUM Comment: Please note that the pediatric reference intervals supplied above were not validated at [facility]. Results from pediatric patients should be interpreted in conjunction to the patient's age, height and muscle mass. Sodium 143 135 - 145 mmol/L CERNER MILLENNIUM Potassium 3.8 3.5 - 5.0 mmol/L CERNER MILLENNIUM Comment: Please note: ??Patients with WBC >100,000 may have falsely elevated Potassium levels. ??For accurate Potassium quantification in these patients send serum separator tube (gold top) for subsequent determinations. ??Contact the Clinical Chemistry Laboratory if there are any questions. Chloride 105 98 - 107 mmol/L CERNER MILLENNIUM Carbon Dioxide 26 22 - 31 mmol/L CERNER MILLENNIUM Anion Gap 12 5 - 15 mmol/L CERNER MILLENNIUM Calcium 9.3 8.5 - 10.5 mg/dL CERNER MILLENNIUM Protein, Total 6.9 6.4 - 8.3 gm/dL CERNER MILLENNIUM Albumin 4.2 3.2 - 5.2 gm/dL CERNER MILLENNIUM Aspartate Aminotransferase 26 0 - 39 unit/L CERNER MILLENNIUM Alanine Aminotransferase 25 0 - 55 unit/L CERNER MILLENNIUM Alkaline Phosphatase 31(L) 40 - 120 unit/L CERNER MILLENNIUM Bilirubin, Total 0.3 0.2 - 1.3 mg/dL CERNER MILLENNIUM Bilirubin, Direct 0.1 0.0 - 0.3 mg/dL CERNER MILLENNIUM Est Glomerular Filtration Rate 58(L) >=60 CERNER MILLENNIUM Comment: This estimated GFR [...] internet browser. http://www.nkdep.nih.gov/lab-evaluation.shtml http://www.kidney.org/professionals/ Blood specimen (specimen) 03/06/2013 11:08 AM EDT 03/06/2013 11:20 AM EDT Narrative Resulting Agency Comment Spec In Lab Lan Singh MD CHEMISTRY ORDERABLES CERNER MILLENNIUM * (ABNORMAL) CBC (with Diff) (03/06/2013 11:08 AM EDT) White Blood Cell 4.5 4.0 - 10.0 x10(3)/mc L [facility] Red Blood Cell 4.52(L) 4.63 - 6.08 x10(6)/mc L [facility] Hemoglobin 13.4(L) 13.7 - 17.5 gm/dL [facility] Hematocrit 40.7 40.0 - 51.0 % [facility] Mean Cell Volume 90.0 79.0 - 92.0 fL [facility] Mean Cell Hemoglobin 29.6 25.6 - 32.2 pg [facility] Mean Cell Hemoglobin Concentration 32.9 32.0 - 36.5 gm/dL [facility] Platelet 163 145 - 370 x10(3)/mc L [facility] RDW Standard Deviation 43.7 35.0 - 46.0 fL [facility] RDW coefficient of variation 13.3 10.9 - 14.4 % [facility] Mean Platelet Volume 9.7 9.0 - 12.0 fL [facility] Blood specimen (specimen) 03/06/2013 11:08 AM EDT 03/06/2013 11:20 AM EDT Narrative Resulting Agency Comment Spec In Lab Lan Singh MD HEMATOLOGY ORDERABLE S [facility] * QuantiFERON-TB Gold (03/06/2013 11:08 AM EDT) [facility] Quantiferon-TB Gold Negative Negative [facility] Comment: Nil (IU/mL)= 0.04 TB Ag minus Nil (IU/mL)= 0.00 Mitogen minus Nil (IU/mL)= >10 M. tuberculosis (TB) infection NOT likely ?A negative specimen should have a TB Ag minus Nil value less than 0.35 IU/mL OR a TB Ag minus Nil greater than or equal to 0.35 IU/mL and in addition the TB Ag minus Nil value must be less than 25% of the Nil value. A negative specimen should have a Mitogen minus Nil value greater than or equal to 0.5 IU/mL. ?A negative QuantiFERON-TB Gold IT result does not preclude the possibility of M. tuberculosis infection or tuberculosis disease: false negative results can be due to stage of infection (e.g., specimen obtained prior to the development of cellular immune response), co-morbid conditions which affect immune function, or other individual immunological factors. ?The performance of the QuantiFERON-TB Gold IT test has not been extensively evaluated with specimens from the following groups of individuals: ?1. Individuals who have impaired or altered immune function such as those who have HIV infection or AIDS, those who have transplantation managed with immunosuppressive treatment or others who receive immunosuppressive drugs (e.g., corticosteroids, methotrexate, azathioprine, cancer chemotherapy), and those who have other clinical conditions: diabetes, silicosis, chronic renal failure, hematological disorders (e.g., leukemia and lymphomas), and other specific malignancies (e.g., carcinoma of the head or neck and lung). ?2. Individuals younger than age 17 years. ?3. women. Note: Diagnosing or excluding tuberculosis disease, and assessing the probability of LTBI, require a combination of epidemiological, historical, medical, and diagnostic findings that should be taken into account when interpreting QuantiFERON-TB Gold results. Reference (http://www.cdc.gov/nchstp/tb/) Blood specimen (specimen) 03/06/2013 11:08 AM EDT 03/07/2013 8:05 AM EDT Narrative Resulting Agency Comment Spec In Lab Lan Singh MD CHEMISTRY ORDERABLES Performing Organization Address City/State/[facility] Phone Number [facility] documented in this encounter Visit Diagnoses Diagnosis Psoriasis- Primary Other psoriasis documented in this encounter Care Teams Electrical Engineering Technician Relationship Specialty Start Date End Date Carlos Hernandez DO [address] [place] [address] PCP - General 08/16/10 02/25/23 documented as of this encounter
--- OUTSIDE RECORDS SUMMARY | 2024-09-23 14:24 | XMS_ITS | Encounter Summary ---
[place] [address] Care Team Providers Care Engineering Production Liaison Name Role Phone Carlos Hernandez DO Primary Care Provider [phone] Encounter Details Date Type Department Care Team (Late st Contact Info) Description 08/19/2013 10:05 AM EST - 08/19/2013 11:05 AM [place] [phone] Pardeep Ibarra II, MD CARDIAC CATHETERIZATION Social History Tobacco Use Types Packs/Day Years [...] encounter Discharge Instructions * Discharge Instructions* Brynn Roa, RN - 08/19/2013 3:43 PM EST Activity [...] by your doctor, do not take any [id number] medicines or herbal preparations without first discussing this with your doctor or pharmacist. There is the possibility of side effect and interactions when these are combined. Follow up Care Who to Call with Questions or Problems If there are any questions or problems that you think might be related to your cardiac cath or angioplasty, contact the reconciliation clerk sports cartoonist by calling [facility] at . documented in this encounter Medications [...] frequently. Patient ambulated down the hallway towards [facility]. Patient able to void in the bathroom without any difficulties. Right groin dressing remains unchanged. 1650 Patient back to bed, Dr Spicer at the bedside and made aware of the right groin dressing. 1654 Radha Ann at the bedside to assess [...] at [facility] [address] [place] [address] Joyce Snyder MD [facility] [place] [address] documented as of this encounter Procedures Procedure Name Priority Date/Time Associated Diagnosis Comments PROTHROMBIN TIME STAT 08/19/2013 8:27 AM EST Aortic stenosis documented in this encounter Results * Prothrombin Time (08/19/2013 8:27 AM EST) Prothrombin Time 13.7 12.0 - 15.0 sec MARCY FINCH Comment: [facility] Transfusion Committee Guidelines: INR less than 2.0, [...] Diagnoses Diagnosis Aortic stenosis Aortic valve disorders Aortic stenosis Aortic valve disorders documented in [...] Given 08/19/2013 11:13 AM EST 25 mg fentaNYL 50mcg/mL injection ONCE PRN, Starting on Sun08/19/13 at 1229, Until Sun08/19/13 at 1300, Pain, Intra-Operative (Intra-Procedure), Routine Given 08/19/2013 12:29 PM EST 50 mcg heparin (porcine) injection ONCE PRN, Starting on Sun08/19/13 at 1228, Until Sun08/19/13 at 1300, Cath (Intra-Procedure), Routine Given 08/19/2013 12:28 PM EST 2,000 Units iohexol (OMNIPAQUE) 350 mg iodine/mL injection ONCE PRN, Starting on Sun08/19/13 at 1250, Until Sun08/19/13 at 1300, Per Protocol, Cath (Intra-Procedure), Routine Given 08/19/2013 12:50 PM EST 110 mLs sodium chloride 0.9% infusion 200 mL/hr, Intravenous, [...] Routine 1113 (Given - Provid er: Mary Biswas, JULIA) diphenhydrAMINE (BENADRYL) capsule 25 mg (COMPLETED) 25 [...] Ibarra II - Comment: Given IA in Cashier Clerk) iohexol (OMNIPAQUE) 350 mg iodine/mL injection (CANCELED) ONCE PRN, Starting on Sun08/19/13 at 1250, Until Sun08/19/13 at 1300, Per Protocol, Cath (Intra-Procedure), Routine 1250 (Given - Provid er: Pardeep Ibarra II - Comment: Contrast in Cashier Clerk) documented in this encounter Care Teams Engineering Production Liaison Relationship Specialty Start Date End Date Carlos Hernandez DO [address] [place] [address] PCP - General 08/16/10 02/25/23 documented as of this encounter
--- OUTSIDE RECORDS SUMMARY | 2024-09-23 14:24 | XMS_ITS | Encounter Summary ---
[place] [address] Care Team Providers Care Yarn Winder Name Role Phone Carlos Hernandez DO Primary Care Provider Reason for Visit * Reason Onset Date Comments Prior Authorization 11/12/2012 RL Encounter Details Date Type Department Care Team (Late st Contact Info) Description 11/12/2012 Tele[place] [phone] Lan Singh MD [facility] [address] Prior Authorization (RL) Social History Tobacco Use Types Packs/Day Years [...] encounter Miscellaneous Notes * Telephone Encounter - JarrellJoão - 11/12/2012 11:32 AM EST Medication Prior Authorization RHEUMATOLOGY Medication name/dose/directions: STELARA 90MG DAY 0,WEEK 4 THEN EVERY 12 WEEKS THERE AFTER Rationale for request: PSORIASIS Health plan: [employer] ID# [id number] Authorizing pharmaceutical sales representative name: MELINDA Faxed to health plan on: CALLED ON 11/12/12 Health plan decision: Approved Quantity approved: Authorization number: [id number] Start date: 11/12/12 End date: 11/12/13 Patient notified? yes Pharmacy notified? yes documented in this encounter Plan of Treatment Upcoming Encounters Date Type Department Care Team (Late st Contact Info) Description 12/18/2024 2:00 PM EDT Office Visit Dermatology at [facility] [address] [place] [address] Joyce Snyder MD [facility] [place] [address] documented as of this encounter Visit Diagnoses Not on filedocumented in this encounter Care Teams Yarn Winder Relationship Specialty Start Date End Date Carlos Hernandez DO [address] [place] [address] [address] [facility] [place] [address] PCP - General 08/16/10 02/25/23 documented as of this encounter
--- OUTSIDE RECORDS SUMMARY | 2024-09-23 14:24 | XMS_ITS | Encounter Summary ---
Author Organization [facility] [place] [address] Care Team Providers Care Transportation Mechanic Name Role Phone Carlos Hernandez DO Primary Care Provider [phone] Reason for Referral * Consultation (Routine) - Declined by Patient Specialty Diagnoses / Procedures Referred By Guanaco marie Referred To Contact Cardiology Diagnoses Murmur Lan Singh MD [facility] [address] Pardeep Ibarra II, MD Referral ID Status Reason Start Date Expiration Date Visits Requested Visits Authorized [id number] Declined by Patient Consult, Test & Treat 05/05/2011 11/01/2011 1 1 Reason for Visit * Reason Comments Follow-up Encounter Details Date Type Department Care Team (Late st Contact Info) Description 05/05/2011 9:15 AM EDT [place] [address] Lan Singh MD [facility] [place] [place] [address] Psoriatic arthritis (Primary Dx); Murmur Discharge Disposition: Home Social History Tobacco Use [...] Sign Reading Time Taken Comments Blood Pressure 138/50 05/05/2011 9:30 AM EDT Pulse 62 05/05/2011 9:30 AM EDT Temperature 36.8 ??C (98.2 ??F) 05/05/2011 9:30 AM ED T Respiratory Rate 18 05/05/2011 9:30 AM EDT Oxygen Saturation 93% 05/05/2011 9:30 AM EDT Inhaled Oxygen Concentration - - Weight 127 kg (280 lb) 05/05/2011 9:30 AM EDT Height 177.8 cm (5' 10) 05/05/2011 9:30 AM EDT Body Mass Index 40.18 05/05/2011 9:30 AM EDT documented in this encounter Progress Notes * Lan Singh MD - 05/05/2011 10:10 AM EDT DATE OF : 1945 HISTORY [...] his worst weight. He is going to [place] santiago week or so, but only for a two week period. His major concerns were today, he has increasing weight, he has depression, anger, and anxiety for which he is being seen by psychologist and inventory audit clerk, who I think is very helpful and [...] 281 and now to [place] Offered bariatric surgery but wants to wait on it. Also has synovial proliferation but only mild tenderness wants to hold on the enbrel RTC 3 m In PTSD program at [place]. Placed on celexa instead of paxil also given trazadone. Feels better less anger Psoriasis better with sun exposure No active synovitis Murmur at [facility] and apex had ECHO outside but in view of the stroke I would prefer a consult here documented in this encounter Plan of Treatment Upcoming Encounters Date Type Department Care Team (Late st Contact Info) Description 12/18/2024 2:00 PM EDT Office Visit Dermatology at [facility] [address] [place] [address] Joyce Snyder MD [facility] [place] [address] Scheduled Referrals Name Type Priority Associated Diagnoses Order Schedule AMB REFERRAL TO CARDIOLOGY Outpatient Referral Routine Murmur Ordered: 05/05/2011 documented as of this encounter Visit Diagnoses Diagnosis Psoriatic arthritis- Primary Psoriatic arthropathy Murmur Undiagnosed cardiac murmurs documented in this encounter Care Teams Transportation Mechanic Relationship Specialty Start Date End Date Carlos Hernandez DO [address] [place] [address] PCP - General 08/16/10 02/25/23 documented as of this encounter
--- OUTSIDE RECORDS SUMMARY | 2024-09-23 14:24 | XMS_ITS | Encounter Summary ---
[place] [address] Care Team Providers Care Python Django Developer Name Role Phone Carlos Hernandez DO Primary Care Provider Reason for Visit * Reason Onset Date Comments Other 03/13/2013 Stelara Encounter Details Date Type Department Care Team (Late st Contact Info) Description 03/13/2013 Telephone [place] [phone] Jazmine García, RN Other ([place]) Social History Tobacco Use Types Packs/Day Years [...] Telephone Encounter - Jazmine García RN - 03/13/2013 12:04 PM EDT [facility] , Cathy is calling to say he has not received his Stelara rx. When they called [facility] they were told it had not been received. She is requesting rx be sent to [facility] today. documented in this encounter Plan of Treatment Upcoming Encounters Date Type Department Care Team (Late st Contact Info) Description 12/18/2024 2:00 PM EDT Office Visit Dermatology at [address] [place] [address] Joyce Snyder MD [facility] [place] [address] documented as of this encounter Visit Diagnoses Not on filedocumented in this encounter Care Teams Python Django Developer Relationship Specialty Start Date End Date Carlos Hernandez DO [address] [place] [address] PCP - General 08/16/10 02/25/23 documented as of this encounter
--- OUTSIDE RECORDS SUMMARY | 2024-09-23 14:24 | XMS_ITS | Encounter Summary ---
Author Organization [facility] [place] [address] Care Team Providers Care Director Of Casework Name Role Phone Carlos Hernandez DO Primary Care Provider Encounter Details Date Type Department Care Team (Late st Contact Info) Description 08/13/2013 Orders Only Cardiology at [address] [phone] Karlene Ann PA Aortic stenosis (Primary Dx) Social History Tobacco Use Types [...] on file documented as of this encounter Procedure Notes * Provider, Scanning - 08/19/2013 1:09 PM ESTAssociated Order(s): CARDIAC CATHETERIZATION documented in this encounter Plan of Treatment Upcoming Encounters Date Type Department Care Team (Late st Contact Info) Description 12/18/2024 2:00 PM EDT Office Visit Dermatology at [facility] [address] [place] [phone] Joyce Snyder MD [facility] [place] [address] documented as of this encounter Procedures Procedure Name Priority Date/Time Associated Diagnosis Comments CARDIAC CATHETERIZATION Routine 08/19/20 13 1:01 PM EST Aortic stenosis documented in this encounter Results * Cardiac Catheterization (08/19/2013 1:01 PM EST) Anatomical Region Laterality Modality Other Narrative 08/19/2013 1:23 PM EST Procedure Note Provider, Scanning - 08/19/2013 1:09 PM EST Williams Diallo MD CARDIAC CATH ORDERAB LES documented in this encounter Visit Diagnoses Diagnosis Aortic stenosis- Primary Aortic valve disorders Aortic stenosis Aortic valve disorders documented in this encounter Care Teams Director Of Casework Relationship Specialty Start Date End Date Carlos Hernandez DO [address] [place] [address] [address] [place] [address] PCP - General 08/16/10 02/25/23 documented as of this encounter
--- OUTSIDE RECORDS SUMMARY | 2024-09-23 14:24 | XMS_ITS | Encounter Summary ---
Author Organization [facility] [place] [address] Care Team Providers Care Urology Physician Assistant Name Role Phone Carlos Hernandez DO Primary Care Provider [phone] Encounter Details Date Type Department Care Team (Late st Contact Info) Description 08/13/2013 Telephone Cardiology at [address] [phone] Karlene Ann PA Social History Tobacco Use Types Packs/Day [...] encounter Miscellaneous Notes * Telephone Encounter - Karlene Ann PA - 08/13/2013 8:23 AM EST I spoke with the patient and his regarding IV contrast use in the past. He has had prior angios and has had no reaction to Omnipaque. documented in this encounter Plan of Treatment Upcoming Encounters Date Type Department Care Team (Late st Contact Info) Description 12/18/2024 2:00 PM EDT Office Visit Dermatology at [address] [place] [address] Joyce Snyder MD [facility] [place] [address] documented as of this encounter Visit Diagnoses Not on filedocumented in this encounter Care Teams Urology Physician Assistant Relationship Specialty Start Date End Date Carlos Hernandez DO [address] [place] [address] PCP - General 08/16/10 02/25/23 documented as of this encounter
--- OUTSIDE RECORDS SUMMARY | 2024-09-23 14:24 | XMS_ITS | Encounter Summary ---
Author Organization [facility] [place] [address] Care Team Providers Care Hog Counter Name Role Phone Carlos Hernandez DO Primary Care Provider [phone] Reason for Visit * Reason Comments Cerebrovascular Accident Encounter Details Date Type Department Care Team (Late st Contact Info) Description 02/01/2011 9:45 AM EDT [place] [phone] Daron Díaz MD CVA (cerebral vascular accident) (Primary Dx) Discharge Disposition: Home Social History [...] this encounter Patient Instructions * Patient Instructions* Lilia Lucero - 02/01/2011 11:17 AM EDT Your clinical picture is likely consistent with a subacute left cerebellar stroke. At this point in time it would be prudent to further investigate the potential cause of your strokeand minimize your vascular risk factors to help prevent another stroke from occuring. To further evaluate the potential cause of your stroke I recommend the following work-up with your PCP: -EKG to look for irregular heart rhythm, if present consider Holter monitoring -repeat Echocardiogram to look for heart abnormalities To minimize your vascular risk factors I recommend the following be checked with your PCP: -blood draw: HgbA1c (to look for diabetes) and lipid panel (to check cholesterol) -continue baby aspirin daily -optimize blood pressure management -optimize cholesterol management -consider re-consultation with sleep doctor to treat your sleep apnea -continue low salt, sugar, and fat diet You may resume your normal level of activity as tolerated Please follow-up with the Neurology clinic at [facility] as needed documented in this encounter Progress Notes * Lilia Lucero - 02/01/2011 11:49 AM EDT Neurology Outpatient Urgent Clinic Date: 02/02/11 Requested by: Dr. Hernandez Reason for Referral: We are seeing this patient at the request of Dr. Hernandez for evaluation of subacute left cerebellar stroke HPI: Mr. Rosenthal is a 65 yo male with a PMH significant for spontaneous SAH 2006 (no evidence of vascular malformation or aneurysm), HTN, HPL, OLIVIER, and obesity who presents for urgent clinic evaluations/p subacute left cerebellar stroke. Patient reports 1 year ago he was on vacation in [place] he experienced the sudden onset of dizziness (horizontal room spinning), sensation of his head in a vice, and falling to the left. Episode lasted 5 min. Three weeks ago he awoke in bed and experienced recurrence of similar symptoms (horizontal room spinning, falling to left) with associated nausea. Durationof symptoms 8 min. Since this occurrence he has had several smaller episodes of decreased duration and severity. Several weeks ago these smaller episodes were occuring up to 4 times a day. These episodes have subsequently decreased in frequency and he has not had an episode in 2 weeks. Patient has balance issues at baseline s/p hip replacement bilaterally. Immediately after this episode he felt an increase in this imbalance, but this resolved soon after. He underwent physical therapy for 2 sessions with subsequent improvement in symptoms. Currently he feels back to his baseline with no residual symptoms. Patient does not know when his last lipid panel or HgbA1c was drawn. Neurological review of systems was revealing for occasional headaches, varying in severity, and notnecessarily associated with episodes, since his SAH. Headaches described as right sided and occipital, sharp at times, improved with ibuprofen, no associated nausea or sensitivity to light. Also occasional vertical scintillation of vision x sev seconds in the am while drinking coffee but no loss ofvision, blurry or double vision. Occasional difficulty remembering names, faces, recent events x several months but not associated temporally with his dizzy spells. Denies slurring of speech, difficulty expressing self, focal weakness or numbness/tingling The author of this note spoke with patient???s PCP, Dr. Hernandez on 01/24/11. Dr. Hernandez had obtained an MRI of the brain upon patient presentation several weeks prior to rule out a central cause of the patient???s vertiginous symptoms. MRI was revealing for a 11x4mm area of diffusion restrictionin the left cerebellar lobe. Case was discussed with Dr. Simons at the time. As the prior work-upof SAH was unrevealing for a vascular abnormality the benefit of ASA given his subacute stroke likely outweighed the risk. In addition to the initiation of ASA Dr. Hernandez agreed to arrange for an MRA of the head and neck and an urgent clinic visit within Neurology was arranged. 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 SHx: Lives in [place], [place]. for 40 yr. 3 daughters and 6 grandchildren that live nearby. Retired. 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 Tobacco: former. Quit in 2000, 1ppd x 20yr. EtOH: several times a week enjoys 2-3 beers Illicits: denies ROS: General: no fevers or chills, denies unintentional weight change, denies fatigue. Difficulty with sleep, with mind racing at night. Eyes: no vision changes, diplopia, or blurry vision. ENT: no sore throat or dysphagia, denies rhinorrhea. Several months of right ear congestion since URI this winter. CVS: denies chest pain but occasional palpitations for several years. No recent EKG. Respiratory: occasional JORDAN, denies cough, denies wheezing GI: no reflux, no abdominal discomfort, no diarrhea/constipation, no nausea/vomiting. : no dysuria or hematuria Musculoskeletal: no myalgias, no acute joint pain or swelling Skin: no rashes or bruises Endocrine: denies h/o DM, denies h/o thyroid disorder Neuro: see HPI Psych: denies depression/anxiety. Physical Exam: Vitals: 145/88, 56 General: NAD. Nondiaphoretic. HEENT: normocephalic/atraumatic. Oropharynx clear. Neck is supple with FROM. No meningeal signs. Occipital nerves nontender to palpation bilaterally CV: occasional irregularity but distant heart sounds, no murmurs/rubs/gallops. No carotid bruits ascultated. Pulm: clear to auscultation bilaterally. Extremities: warm and well perfused, no edema Neuro: Mental Status: alert and oriented to person, place and date. Speech is fluent without dysarthria oraphasia. Naming, reading, repetition intact. 3/3 registration and recall. Able to spell WORLD forwards and backwards. Able to follow multistep commands crossing midline. Able to ascertain events of cookie jar picture on NIHSS cards without difficulty CN: PERRL, EOMI, visual carpio intact. Facial sensation intact to light touch throughout. Hearing intact to fingerub BL. Face symmetric without ptosis or droop. Midline palatal elevation and tongue protrusion. Normal shoulder shrug, normal head rotation strength Motor: Normal tone and bulk. No tremor or pronator drift. Full strength throughout Reflex: R: TJ 2+, BJ 2+, BRJ 2+, Pat 2+, AJ 2+, toes mute L: TJ 2+, BJ 2+, BRJ 2+, Pat 2+, AJ 2+, toes mute Sensation: intact to light touch, temp, pin, vibration, and proprioception throughout. Coordination: Normal [id number], rapid alternating movements, finger taps. Romberg not present Gait: Normal gait, able to perform heel- toe- standing without difficulty. Mild unsteadiness with tandem gait Labs: None recent within [facility] Pertinent Radiographic/Diagnostic Results: Comments MRI/MRA OSH 01/25/[address] Díaz MRI: small linear acute infarction of the central left cerebellar hemisphere just superior to the horizontal fissures. MRA: hypoplastic left vertebral artery TTE 02/2008 (preop) 1. REST: Normal global and segmental biventricular systolic function with an estimated ejection fraction of 70%. No hemodynamically significant valvular disease. See remainder of report for additional findings. 2. STRESS: The patient received incremental doses of Dobutamine to a peak of 30 mcg/kg/min, achieving a heart rate of 139 bpm (87% maximum predicted), and peak BP of 134/64 mmHg. With stress he was asymptomatic, hemodynamically stable, had no arrhythmias, and developed [address] depressions inferiorly. With stress all left ventricular segments became appropriately hyperdynamic. 3. IMPRESSION: No echocardiographic evidence of ischemia at this level of stress. Assessment: Mr. Rosenthal is a 65 yo male with a PMH significant for spontaneous SAH 2006 (no evidence of vascular malformation or aneurysm), HTN, HPL, former tobacco abuse, OLIVIER (no longer using CPAP) and obesity who presents for urgent clinic evaluation s/p subacute left cerebellar stroke as evidencedby MRI. Patient initially with symptoms of vertigo, nausea, and imbalance, now resolved. Physical examination revealing for irregular heart rate and difficulty with tandem gait, but no evidence of impaired eye movements/nystagmus or dysmetria. Potential etiology of subacute stroke includes potential thromboembolic event from atherosclerotic disease vs cardioembolic event. I recommend PCP consideration of repeat echocardiogram and EKG/Holter monitoring to further clarifyetiology of this patient's stroke, especially given irregularity of heart rate on exam. Additionally I recommend further risk stratification and optimization of vascular risk factors as outlined below for recurrent stroke prevention. Patient is in agreement with plan. I have provided him with my card and he agreed to contact me with any additional questions or if Neurology follow-up at [facility] is desired. Recommendations for PCP: -repeat echocardiogram -EKG with consideration of Holter monitoring given irregular heart rate -check HgbA1c and lipid panel for further risk stratification -optimize blood pressure management -optimize cholesterol management -continue baby ASA -low fat, low salt, and low sugar diet -patient may resume regular activity level as tolerated -follow-up in Neurology clinic at [facility] prn or as symptoms dictate Lilia uLcero MD Neurology Resident Attending Physician Attestation I saw and evaluated the patient with Dr. Lucero (resident). I have reviewed the medical records and the patient's history during the visit and I agree with the details as written. My physical examination confirms the resident's findings. I personally viewed the Radiographic images and I agree with the interpretation noted above. The assessment and plan were formulated in discussion with me at the time of the visit and I agree with them as documented. Daron Díaz M.D. documented in this encounter Procedure Notes * Provider, Scanning - 02/03/2011 2:00 PM EDTAssociated Order(s): SCAN DOC: MRI/MRA documented in this encounter Plan of Treatment Upcoming Encounters Date Type Department Care Team (Late st Contact Info) Description 12/18/2024 2:00 PM EDT Office Visit Dermatology at [facility] [address] [place] [address] Joyce Snyder MD [facility] [place] [address] documented as of this encounter Procedures Procedure Name Priority Date/Time Associated Diagnosis Comments MRI/MRA SCAN 02/03/2011 2:00 PM EDT documented in this encounter Results * SCAN DOC: MRI/MRA (02/03/2011 2:00 PM EDT) Anatomical Region Laterality Modality Other Narrative 02/07/2011 11:32 AM EDT Procedure Note Provider, Scanning - 02/03/2011 2:00 PM EDT Scanning Provider MEDIA MGR SCAN EXT O RDR/RSLT documented in this encounter Visit Diagnoses Diagnosis CVA (cerebral vascular accident)- Primary Unspecified cerebral artery occlusion with cerebral infarction documented in this encounter Care Teams Hog Counter Relationship Specialty Start Date End Date Carlos Hernandez DO [address] [place] [address] PCP - General 08/16/10 02/25/23 documented as of this encounter
--- OUTSIDE RECORDS SUMMARY | 2024-09-23 14:24 | XMS_ITS | Encounter Summary ---
Author Organization [facility] Address [facility] [place] [address] Care Team Providers Care Spindle Repairer Name Role Phone Carlos Hernandez DO Primary Care Provider Reason for Visit * Reason Onset Date Comments Medication Refill 04/03/2013 Encounter Details Date Type Department Care Team (Late st Contact Info) Description 04/03/2013 [place] [address] Lan Singh MD [facility] [place] [address] Psoriasis (Primary Dx) Social History Tobacco Use [...] 2:00 PM EDT Office Visit Dermatology at [facility] [address] [place] [address] Joyce Snyder MD [facility] [place] [address] documented as of this encounter Visit Diagnoses Diagnosis Psoriasis- Primary Other psoriasis documented in this encounter Care Teams Spindle Repairer Relationship Specialty Start Date End Date Carlos Hernandez DO [address] [place] [address] PCP - General 08/16/10 02/25/23 documented as of this encounter
--- OUTSIDE RECORDS SUMMARY | 2024-09-23 14:24 | XMS_ITS | Encounter Summary ---
Author Organization [facility], [facility]1983 Address [address] [facility] [place] [address] Care Team Providers Care Recovery Coordinator Name Role Phone Carlos Hernandez DO Primary Care Provider Encounter Details Date Type Department Care Team (Latest Contact Info) Description 06/19/2013 9:19 AM EDT - 06/19/2013 11:59 PM EDT Hospital Encounter XRay at [facility] [address] [place] [phone] Status post hip replacement Social History Tobacco Use Types [...] 2:00 PM EDT Office Visit Dermatology at [address] [phone] Joyce Snyder MD [facility] [place] [address] documented as of this encounter Procedures Procedure Name Priority Date/Time Associated Diagnosis Comments XR PELVIS AND HIP BILAT (GENERIC) Routine 06/19/2013 9:39 AM EDT Status post hip replacement documented in this encounter Results * XR pelvis 1 [...] encounter Visit Diagnoses Diagnosis Status post hip replacement Hip joint replacement by other means documented in this encounter Care Teams Recovery Coordinator Relationship Specialty Start Date End Date Carlos Hernandez DO [address] [facility] [address] [address] [facility] [address] [place] [address] PCP - General 08/16/10 02/25/23 documented as of this encounter
--- OUTSIDE RECORDS SUMMARY | 2024-09-23 14:24 | XMS_ITS | Encounter Summary ---
Author Organization [facility] Address [facility] [place] [address] Care Team Providers Care Otr Truck Driver Name Role Phone Carlos Hernandez DO Primary Care Provider Encounter Details Date Type Department Care Team (Late st Contact Info) Description 02/29/2012 12:45 PM EDT [place] [id number] Lan Singh MD [facility] [place] [address] Psoriasis (Primary Dx) Discharge Disposition: Home Social [...] Sign Reading Time Taken Comments Blood Pressure 149/67 02/29/2012 1:04 PM EDT Pulse 62 02/29/2012 1:04 PM EDT Temperature 36.9 ??C (98.5 ??F) 02/29/2012 1:04 PM ED T Respiratory Rate - - Oxygen Saturation 96% 02/29/2012 1:04 PM EDT Inhaled Oxygen Concentration - - Weight 136.1 kg (300 lb) 02/29/2012 1:04 PM EDT Height 177.8 cm (5' 10) 02/29/2012 1:04 PM EDT Body Mass Index 43.05 02/29/2012 1:04 PM EDT documented in this encounter Progress Notes * Lan Singh MD - 02/29/2012 1:31 PM EDT DATE OF : 1945 HISTORY OF [...] he is being seen by psychologist and certified midwife, who I think is very helpful and [...] RTC 3 m In PTSD program at [place]. Placed on celexa instead of paxil also [...] try 40mg celexa P) RTC 3 m documented in this encounter Plan of Treatment Upcoming Encounters Date Type Department Care Team (Late st Contact Info) Description 12/18/2024 2:00 PM EDT [facility] [address] [place] [address] Joyce Snyder MD [facility] [place] [address] documented as of this encounter Procedures Procedure Name Priority Date/Time Associated Diagnosis Comments DIFFERENTIAL, AUTOMATED Routine 02/29/2012 1:54 PM EDT SEDIMENTATION RATE Routine 02/29/2012 1: 54 PM EDT Psoriasis CBC (WITH DIFF) Routine 02/29/2012 1:54 PM EDT Psoriasis CRP, CARDIAC RISK (HS CRP) Routine 02/29/2012 1:54 PM EDT Psoriasis COMPREHENSIVE METABOLIC PANEL Routine 02/29/2012 1:54 PM EDT Psoriasis documented in this encounter Results * DIFFERENTIAL, AUTOMATED (02/29/2012 1:54 PM EDT) Neutrophil % 57.2 34.0 - 71.0 % CERNER MILLENNIUM Neutrophil Absolute 2.82 1.50 - 6.30 x10(3)/mcL CERNER MILLENNIUM Lymph % 27.8 19.0 - 53.0 % CERNER MILLENNIUM Lymphocytes Abs 1.4 1.0 - 3.6 x10(3)/mcL CERNER MILLENNIUM Monocyte % 8.9 4.0 - 13.0 % CERNER MILLENNIUM Monocyte Abs 0.4 0.2 - 1.0 x10(3)/mcL CERNER MILLENNIUM Eos % 5.9 0.0 - 7.0 % CERNER MILLENNIUM Eosinophils Abs 0.3 0.0 - 0.5 x10(3)/mcL CERNER MILLENNIUM Basophil % 0.2 0.0 - 2.0 % CERNER MILLENNIUM Baso Absolute 0.0 0.0 - 0.2 x10(3)/mcL CERNER MILLENNIUM Immature Gran % 0.00 0.00 - 0.66 % MARCY FINCH Comment: Immature granulocytes(IG's)percentage and absolute count will include metamyelocytes, myelocytes, and promyelocytes. Blood smears from CBCs yielding IG's will be scanned manually for concordance. If this scan disagrees with the automated IG or if promyelocytes are noted, a manual differential will be performed. Immature Gran Absolute 0.00 0.00 - 0.05 x10(3)/mcL MARCY FINCH Blood specimen (specimen) 02/29/2012 1:54 PM EDT 02/29/2012 2:01 PM EDT Lan Singh MD HEMATOLOGY ORDERABLE S MARCY FINCH * High Sensitivity CRP (02/29/2012 1:54 PM EDT) C-Reactive Protein High Sensitivity 2.2 mg/L MARCY FINCH Comment: Interpretations: 1) For cardiac risk assessment, [...] prevention. ??Circulation 2003; 107:363-369 Blood specimen (specimen) 02/29/2012 1:54 PM EDT 02/29/2012 2:01 PM EDT Narrative Resulting Agency Comment Spec In Lab Lan Singh MD CHEMISTRY ORDERABLES Performing Organization Address [facility] Co de Phone Number [facility] * Sedimentation rate (02/29/2012 1:54 PM EDT) Sedimentation Rate Automated 6 0 - 15 mm/hr CERNER MILLENNIUM Blood specimen (specimen) 02/29/2012 1:54 PM EDT 02/29/2012 2:01 PM EDT Narrative Resulting Agency Comment Spec In Lab Lan Singh MD HEMATOLOGY ORDERABLE S Performing Organization Address [facility] Co de Phone Number [facility]ENNIUM * (ABNORMAL) Comprehensive metabolic panel (non-fasting) (02/29/2012 1:54 PM EDT) Glucose 99 60 - 199 mg/dL CERNER MILLENNIUM Comment:Diabetes: >=200 mg/d L plus symptoms Blood Urea Nitrogen 26(H) 10 - 20 mg/dL CERNER MILLENNIUM Creatinine 1.41 0.80 - 1.50 mg/dL CERNER MILLENNIUM Comment: Please note that the pediatric reference intervals supplied above were not validated at [facility]. Results from pediatric patients should be interpreted [...] questions. Chloride 101 98 - 107 mmol/L CERNER MILLENNIUM Carbon Dioxide 30 22 - 31 mmol/L CERNER MILLENNIUM Anion Gap 8 5 - 15 mmol/L CERNER MILLENNIUM Calcium 10.3 8.5 - 10.5 mg/dL CERNER MILLENNIUM Protein, Total 7.4 6.4 - 8.3 gm/dL CERNER MILLENNIUM Albumin 4.6 3.2 - 5.2 gm/dL CERNER MILLENNIUM Aspartate Aminotransferase 27 0 - 39 unit/L CERNER MILLENNIUM Alanine Aminotransferase 28 0 - 55 unit/L CERNER MILLENNIUM Alkaline Phosphatase 31(L) 40 - 120 unit/L CERNER MILLENNIUM Bilirubin, Total 0.3 0.2 - 1.3 mg/dL CERNER MILLENNIUM Bilirubin, Direct 0.1 0.0 - 0.3 mg/dL CERNER MILLENNIUM Est Glomerular Filtration Rate 50(L) >=60 CERNER MILLENNIUM Comment: The National Kidney [...] J Am Soc Nephrol;6:1963-72. Blood specimen (specimen) 02/29/2012 1:54 PM EDT 02/29/2012 2:01 PM EDT Narrative Resulting Agency Comment Spec In Lab Lan Singh MD CHEMISTRY ORDERABLES CERNER MILLENNIUM * (ABNORMAL) CBC (with Diff) (02/29/2012 1:54 PM EDT) White Blood Cell 4.9 4.0 - 10.0 x10(3)/mc L CERNER MILLENNIUM Red Blood Cell 4.63 4.63 - 6.08 x10(6)/mc L CERNER MILLENNIUM Hemoglobin 13.5(L) 13.7 - 17.5 gm/dL CERNER MILLENNIUM Hematocrit 39.9(L) 40.0 - 51.0 % CERNER MILLENNIUM Mean Cell Volume 86.2 79.0 - 92.0 fL CERNER MILLENNIUM Mean Cell Hemoglobin 29.2 25.6 - 32.2 pg CERNER MILLENNIUM Mean Cell Hemoglobin Concentration 33.8 32.0 - 36.5 gm/dL CERNER MILLENNIUM Platelet 193 145 - 370 x10(3)/mc L CERNER MILLENNIUM RDW Standard Deviation 41.8 35.0 - 46.0 fL CERNER MILLENNIUM RDW coefficient of variation 13.5 10.9 - 14.4 % CERNER MILLENNIUM Mean Platelet Volume 9.6 9.0 - 12.0 fL CERNER MILLENNIUM Blood specimen (specimen) 02/29/2012 1:54 PM EDT 02/29/2012 2:01 PM EDT Narrative Resulting Agency Comment Spec In Lab Lan Singh MD HEMATOLOGY ORDERABLE S Performing Organization Address City/State/[facility] Co il Phone Number [facility] documented in this encounter Visit Diagnoses Diagnosis Psoriasis- Primary Other psoriasis documented in this encounter Care Teams Otr Truck Driver Relationship Specialty Start Date End Date Carlos Hernandez DO [address] [place] [address] PCP - General 08/16/10 02/25/23 documented as of this encounter
--- OUTSIDE RECORDS SUMMARY | 2024-09-23 14:24 | XMS_ITS | Encounter Summary ---
Author Organization [facility] Address [facility] [place] [address] Care Team Providers Care Composite Layup Worker Name Role Phone Carlos Hernandez DO Primary Care Provider [phone] Reason for Visit * Reason Comments GI Problem Encounter Details Date Type Department Care Team (Late st Contact Info) Description 04/22/2012 10:00 AM EDT Office [place] [address] Santy Alva MD [facility] [place] [address] Subarachnoid hemorrhage; Pancreatitis; Cholelithiasis; Diverticulitis; Abdominal panniculus Discharge Disposition: Home Social History Tobacco Use [...] Sign Reading Time Taken Comments Blood Pressure 153/74 04/22/2012 10:00 AM EDT Pulse 60 04/22/2012 10:00 AM EDT Temperature - - Respiratory Rate - - Oxygen Saturation - - Inhaled Oxygen Concentration - - Weight 134.7 kg (297 lb) 04/22/2012 10:00 AM EDT Height 177.8 cm (5' 10) 04/22/2012 10:00 AM EDT Body Mass Index 42.62 04/22/2012 10:00 AM EDT documented in this encounter Progress Notes * Santy Alva MD - 04/22/2012 10:38 AM EDT Subjective: Patient ID: Raghu Rosenthal is a 66 y.o. male. He is referred by CARLOS HERNANDEZ DO for further evaluation of cholelithiasis and prior episode of possible pancreatitis. HPI Comments: He was in usual state of health until 11/05 when he underwent an echocardiogram (wnl) but received IV contrast. The next day he developed a cold feeling throughout his body and overallfelt terrible and was taken to local ED where he vomited but cannot recall having abdominal pain.His labs were notable for elevated lipase (511) and mild renal insufficiency. He was treated with IVF in ED and sent home feeling better that day. It was though that perhaps he had a contrast reaction. He subsequently had an USG that showed fatty liver and small gallbladder stones but normal gallbladder wall and CBD. The lipase and renal function returned to normal. Since then he has been well. He has occasional mild crampy lower abdominal pain but denies typical biliary type symptoms. 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 FH: non-contributory Review of Systems Constitutional: Negative. Respiratory: Negative. Cardiovascular: Negative. Gastrointestinal: See above Objective: Physical Exam Vitals reviewed. Constitutional: He appears well-developed and well-nourished. obese Eyes: No scleral icterus. Abdominal: Soft. He exhibits no distension and no mass. No tenderness. Well-healed surgical scars. Assessment and Plan: Self-limited illness 11/05 that may have been a contrast reaction, though associated with mild elevation in lipase that may have been the result of mild pancreatitis. Though he has gallstones, they may be incidental as the illness in 11/05 was not typical gallstone pancreatitis. Since he has had no biliary or pancreatitis like symptoms since, would defer cholecystectomy for now. He is obese, and a lot of his comorbidities are obesity related. I encouraged him to try and lose weight, and also mentioned the possibility of a gastric bypass. He is seeing a vault custodian soon and will f/up with Dr. Hernandez I asked him to call if he develops biliary colic or pancreatitis, at which point we would consider referral to a surgeon for cholecystectomy. 30 minutes of this 40 minute visit spent in discussion and coordination of care regarding gallstones and pancreatitis. Santy Alva MD sales representative livestock Director, GI Endoscopy Section of Gastroenterology and [place] [address] Cc:CARLOS HERNANDEZ DO [address] [place] [phone] documented in this encounter Plan of Treatment Upcoming Encounters Date Type Department Care Team (Late st Contact Info) Description 12/18/2024 2:00 PM EDT Office Visit Dermatology at [facility] [address] [place] [address] Joyce Snyder MD [facility] [place] [address] documented as of this encounter Visit Diagnoses Diagnosis Subarachnoid hemorrhage Pancreatitis Acute pancreatitis Cholelithiasis Calculus of gallbladder without mention of cholecystitis or obstruction Diverticulitis Diverticulitis of colon (without mention of hemorrhage) Abdominal panniculus Localized adiposity documented in this encounter Care Teams Composite Layup Worker Relationship Specialty Start Date End Date Carlos Hernandez DO [address] [place], [place] [id number] PCP - General 08/16/10 02/25/23 documented as of this encounter
--- OUTSIDE RECORDS SUMMARY | 2024-09-23 14:24 | XMS_ITS | Encounter Summary ---
[place] [address] Care Team Providers Care Worship Leader Name Role Phone Carlos Hernandez DO Primary Care Provider [phone] Reason for Visit * Reason Onset Date Comments Other 04/03/2013 Stelara Encounter Details Date Type Department Care Team (Late st Contact Info) Description 04/03/2013 [place] [phone] Jazmine García, RN Other (Roselyn) Social History Tobacco Use [...] Telephone Encounter - Jazmine García RN - 04/03/2013 3:15 PM EDT [facility] is calling to say they still have not received Stelara rx. She has called several different [facility] pharmacies as well as [facility], but can't find it. Told her [place] [facility] [place] [facility] [place]. They transferred me to [facility] in [place]. Person in [place] had no record of Raghu in system, but said the order could be faxed to . Asked her if prescription should not have been sent to [place]. She said no it could be sent there. Called [facility] and [facility] know that the Stelara rx would be refaxed. She will call if any further problems documented in this encounter Plan of Treatment Upcoming Encounters Date Type Department Care Team (Late st Contact Info) Description 12/18/2024 2:00 PM EDT Office Visit Dermatology at [facility] [address] [place] [address] Joyce Snyder MD [facility] [place] [address] documented as of this encounter Visit Diagnoses Not on filedocumented in this encounter Care Teams Worship Leader Relationship Specialty Start Date End Date Carlos Hernandez DO [address] [place] [address] PCP - General 08/16/10 02/25/23 documented as of this encounter
--- OUTSIDE RECORDS SUMMARY | 2024-09-23 14:25 | XMS_ITS | Encounter Summary ---
Author Organization [facility] Address [address] [place] [address] Care Team Providers Care Windows Consultant Name Role Phone Helder Pimentel MD Primary Care Provider Unknown, Provider Primary Care Provider Unava ilable Encounter Details Date Type Department Care Team (Late st Contact Info) Description 02/01/2022 Lab Requisition [facility] Pathology & Laboratory Medicine - [address] [address] Amado Costello MD [address] [place] [address] [address] [place], [place] [id number] Encounter for other general examination Social History Tobacco Use Types Packs/Day Years Used Date Smoking Tobacco: Never Assessed Sex and Gender Information Value Date Recorded Sex Assigned at Not on file Legal Sex Male 18:19 EST Gender Identity Not on file Sexual Orientation Not on file documented as of this encounter Plan of Treatment Not on file documented as of this encounter Procedures Procedure Name Priority Date/Time Associated Diagnosis Comments SURGICAL PATHOLOGY Today 02/01/2022 10 :22 EDT Encounter for other general examination documented in this encounter Results * SURGICAL PATHOLOGY (02/01/2022 10:22 EDT) Amendment Comment This is an amended report which replaces the original pathology report issued on 02/06/22. This amendment is being issued to add the client ID which was inadvertently not added to the report. There is no change to the diagnosis. 02/07/2022 14:43 EDT [facility] Note to Patient The following pathology results have been interpreted by your pathologist and may be available to you before your health provider has had the opportunity to review them. Please allow time for your provider to receive these results and explore management options, if applicable. 02/07/2022 14:43 T [facility] Final Diagnosis A. COLON, ASCENDING, POLYP, BIOPSY: - Polypoid colonic mucosa with no significant diagnostic abnormality. - Deeper sections have been reviewed. 02/07/2022 14:43 [facility] Attestation By the signature below, the attending physician certifies that they have 1) personally conducted a gross and/or microscopic examination of the described specimen(s), and/or personally interpreted the results of laboratory testing of the described specimen(s), and 2) personally rendered or confirmed the above diagnosis. 02/07/2022 14:43 [facility] Amendment electronically signed by Lisa Valero MD on 02/07/2022 at 1443 at 1158 Clinical History Positive FIT test 02/07/2022 14:43 [facility] Gross Description A. Received in formalin labelled with proper patient identification (initials P, J) and ascending colon polyp is a single lobato-brown polypoid tissue (0.2 x 0.1 x 0.1 cm). Submitted intact in A1. PATRICK BRISENO(ASCP) 02/02/2022 9:36 02/07/2022 14:43 T [facility] Performing Lab [facility] 02/07/2022 14:43 [facility] Scanned Images 02/07/2022 14:43 [facility] Tissue ASCENDING COLON STRUCTURE / Unknown 02/01/2022 10:22 EDT 02/01/2022 22:48 EDT us Amado Costello MD PATHOLOGY ORDERABLES Harlan jarrett Result - Final [facility] [address] [place] [address] documented in this encounter Visit Diagnoses Diagnosis Encounter for other general examination documented in this encounter Care Teams Windows Consultant Relationship Specialty Start Date End Date Helder Pimentel MD [address] [facility] [place] [address] PCP - General Family Medicine - Primary Care 12/23/21 06/25/22 Unknown, Provider, [facility] [place] [address] PCP - General 04/24/23 documented as of this encounter
--- OUTSIDE RECORDS SUMMARY | 2024-09-23 14:25 | XMS_ITS | Encounter Summary ---
Author Organization [facility] Address [address] [place] [address] Care Team Providers Care Digital Analyst Name Role Phone Unavailable Primary Care Provider Unavailabl e Encounter Details Date Type Department Care Team (Late st Contact Info) Description 06/30/2005 Results Only [facility] conversion [address] [place] [address] Jacek So, DO [address] [facility] [address] [place] [address] Social History Tobacco Use Types Packs/Day Years [...] Priority Date/Time Associated Diagnosis Comments SURGICAL PATHOLOGY Routine 06/30/2005 0:00 EDT documented in this encounter Results * SURGICAL PATHOLOGY (06/30/2005 0:00 EDT) Pathology Report: SURGICAL PATHOLOGY REPORT Reports generated via electronic interface contain original data; however they are lacking the format of the original report. Caution should be taken when reading/interpreti ng unformatted reports. Name: ? IRVING ROSENTHAL ? Accession #: ? [id number] ? : ? 1945 (Age: 59) ??M ? Collect Date: ? 06/30/2005 ? Location: ? [facility] ? Receive Date: ? 07/03/2005 ? Provider: JACEK SO DO Copy to: MACARIO BEEBE DO ? Final Pathologic Diagnosis: ? Colon, descending and sigmoid, segmental resection: 1. ?Perforated diverticulitis. 2. ?Surgical margins are viable. Document reviewed and electronically signed by: Neymar Castillo MD Report ??Date: 07/05/2005 17:25 By the signature above, the attending physician certifies that he/she has personally conducted a gross and/or microscopic examination of the described specimens and rendered or confirmed the above diagnosis. Specimen(s) Received: ? Descending colon/sigmoid colon Clinical History: ? Ruptured sigmoid diverticula Gross Description: ? Received in formalin labelled Pakus and descending colon is a portion of colon received partially open which measures 22.0 cm in length and varies in inner circumference from 2.5 to 4.0 cm. ??The specimen is unoriented to proximal and distal ends. ??One of the surgical resection margins contains rajan and the other does not. ??The mucosa is lobato-white with unremarkable colonic folds. ??The mucosa adjacent to the stapled surgical resection margin is markedly hyperemic with loss of the colonic folds, measuring approximately 6.0 cm in length. ??The lumen in this area is dilated and contains a moderate amount of brown fecal material. ??Sectioning of the colon reveals multiple diverticula, some of which extend into the adipose tissue. ??The serosa involving the hyperemic mucosa is round and surrounded by a moderate amount of brown-yellow adipose tissue. ??No areas of bowel wall perforation are grossly discernible. The bowel wall measures 0.1 cm in the area of the hyperemic mucosa and ranges from 0.3 to 0.9 cm in the remaining tissue. ??Also received is a 3.0 cm in length by 2.8 cm in diameter portion of colon with two stapled ends. ??The mucosa of the smaller portion of bowel is lobato-green, smooth, and shows a loss of colonic folds. ??The colon wall measures 0.2 cm in thickness. ??Clean Up Helper Banquet sections are submitted as follows: BLOCK MOORE A1 ?Portion of colon adjacent to stapled surgical resection margin A2, A3 ? Unstapled surgical resection margin en face A4, A5 ?Stapled surgical resection margins of the smaller portion of colon A6-A9 ?Colon with hyperemic mucosa showing diverticula A10-A14 ? Colon with diverticula A15 ?Small portion of colon (Dr. Leung)/mpl End of Report [facility] 06/30/2005 07/03/2005 15: 05 EDT us Jacek So DO PATHOLOGY ORDERABLES Fi nal Result [facility] [address] [place] [address] documented in this encounter Visit Diagnoses Not on filedocumented in this encounter
--- OUTSIDE RECORDS SUMMARY | 2024-09-23 14:25 | XMS_ITS | Encounter Summary ---
Author Organization [facility] Address [facility] [place] [address] Care Team Providers Care Gi Technician Name Role Phone Carlos Hernandez DO Primary Care Provider Reason for Visit * Reason Comments Joint Pain Encounter Details Date Type Department Care Team (Late st Contact Info) Description 01/09/2011 1:45 PM EDT [place] [phone] Lan Singh MD [facility] [place] [address] Depression (Primary Dx) Discharge Disposition: Home Social History [...] Sign Reading Time Taken Comments Blood Pressure 125/67 01/09/2011 2:06 PM EDT Pulse 73 01/09/2011 2:06 PM EDT Temperature 36.9 ??C (98.5 ??F) 01/09/2011 2:06 PM ED T Respiratory Rate - - Oxygen Saturation 95% 01/09/2011 2:06 PM EDT Inhaled Oxygen Concentration - - Weight - - Height - - Body Mass Index - - documented in this encounter Progress Notes * Lan Singh MD - 01/09/2011 2:35 PM EDT DATE OF : 1945 HISTORY [...] worst weight. He is going to [place] santiago week or so, but only for a two week period. His major concerns were today, he has increasing weight, he has depression, anger, and anxiety for which he is being seen by psychologist and silk finisher, who I think is very helpful and [...] and now to 89 [place] Offered bariatric surgery but wants to wait on it. Also has synovial proliferation but only mild tenderness wants to hold on the enbrel RTC 3 m documented in this encounter Procedure Notes * Provider, Scanning - 02/03/2011 2:00 PM EDTAssociated Order(s): SCAN DOC: CT SCAN documented in this encounter Plan of Treatment Upcoming Encounters Date Type Department Care Team (Late st Contact Info) Description 12/18/2024 2:00 PM EDT Office Visit Dermatology at [facility] [address] [place] [phone] Joyce Snyder MD [facility] [place] [place] [address] documented as of this encounter Procedures Procedure Name Priority Date/Time Associated Diagnosis Comments CT SCAN (SCAN) 02/03/2011 2:00 PM EDT documented in this encounter Results * SCAN DOC: CT SCAN (02/03/2011 2:00 PM EDT) Anatomical Region Laterality Modality Other Narrative 02/07/2011 11:32 AM EDT Procedure Note Provider, Scanning - 02/03/2011 2:00 PM EDT Scanning Provider MEDIA MGR SCAN EXT O RDR/RSLT documented in this encounter Visit Diagnoses Diagnosis Depression- Primary Depressive disorder, not elsewhere classified documented in this encounter Care Teams Gi Technician Relationship Specialty Start Date End Date Carlos Hernandez DO [address] [place] [address] [address] [place] [address] PCP - General 08/16/10 02/25/23 documented as of this encounter
--- OUTSIDE RECORDS SUMMARY | 2024-09-23 14:25 | XMS_ITS | Continuity of Care Document ---
Author Organization [facility] Address [address] [place] [address] Encounter LTTL_IA FIN NBR [id number] Date(s): 02/07/24 - 02/07/24 [facility] [address] [place] [address]- Discharge Disposition: Home or Self Care Attending Physician: LI RICHTER Admitting Physician: LI RICHTER Referring Physician: LI RICHTER Allergies, Adverse Reactions, Alerts Substance Reaction Severity Status tetracycline Swelling Unknown Active Bee Stings Unknown Unknown Active Augmentin Diarrhea Unknown Active Vicodin bad reaction Unknown Active Pravachol Rash Unknown Active Lipitor Joint pain Unknown Active Results Radiology Reports * Exam Date Time Procedure Performing Provider Status 02/07/24 12:16 PM MRI Abdomen w/ + w/o Contrast Joyce Ramirez; Tien (Verified) Notes: (MRI Abdomen w/ + w/o Contrast) Reason For Exam: ABNORMAL FINDING ON OTHER IMAGING MRI Abdomen w/ + w/o Contrast EXAM DESCRIPTION: MRI Abdomen w/ + w/o Contrast 02/07/2024 12:16 INDICATION: Outside facility right upper quadrant ultrasound for HCC screening that showed a possible liver lesion TECHNIQUE: MRI examination of the abdomen was performed. Examination consists of axial in phase and opposed phase gradient echo T1 weighted images, routine T2, fat-suppressed T2 and long TE T2 weighted images as well as thin section pre and postcontrast fat-suppressed T1 weighted images including arterial phase, portal venous phase and delayed images up to 10 minutes post contrast administration. Postcontrast coronal postcontrast fat-suppressed T1 weighted images were also obtained. 20 mL of MultiHance contrast was utilized COMPARISON: None. The outside facility ultrasound examination which apparently prompted this examination is not available for comparison. FINDINGS: No evidence of significant hepatic steatosis on opposed phase imaging. No focal hepatic mass or abnormal enhancement. The spleen is enlarged measuring 17.5 x 15.2 x 5.8 cm. No focal splenic lesion Low signal intensity filling defects in the gallbladder which layer dependently consistent with gallstones. No significant gallbladder inflammatory changes are noted. Adrenal glands and pancreas appear within normals with no mass or abnormal enhancement Scattered ovoid T2 hyperintense renal lesions bilaterally without abnormal enhancement consistent with cysts. Additional ovoid lesion involving the lower pole of the left kidney demonstrating increased signal on precontrast fat-suppressed T1 images and decreased signal on T2 weighted images without abnormal enhancement likely reflecting hemorrhagic cyst. This measures approximately 2.4 cm in diameter. Normal caliber abdominal aorta. No retroperitoneal adenopathy in the visualized abdomen. Visualized portions of bowel are nondistended No suspicious regional marrow lesions. IMPRESSION: No focal hepatic mass or abnormal enhancement. Splenomegaly Cholelithiasis JOB #: [id number] Final Signed by: Hugh Salas MD Signed (Electronic Signature): 02/07/2024 2:24 pm * Exam Date Time Procedure Performing Provider Status 02/07/24 9:54 AM XR Chest 2 Views Marguerite Perry; Auth (Verified) Notes: (XR Chest 2 Views) Reason For Exam: PRE MRI - PACEMAKER XR Chest 2 Views EXAM DESCRIPTION: XR Chest 2 Views 02/07/2024 INDICATION: PRE MRI - PACEMAKER COMPARISON: None FINDINGS: Clear lungs with no focal infiltrate or pulmonary edema. Normal cardiomediastinal contour. Previous median sternotomy with prosthetic cardiac valve in place. Cardiac pacemaker in satisfactory position. No abandoned cardiac pacemaker leads Normal pleural margins with no pleural effusion or pneumothorax. Spondylotic changes of the dorsal spine. IMPRESSION: No active chest disease. JOB #: [id number] Final Signed by: Hugh Salas MD Signed (Electronic Signature): 02/07/2024 9:57 am Patient Care team information Care Team Related Persons Name: KARLA KELLY
--- OUTSIDE RECORDS SUMMARY | 2024-09-23 14:25 | XMS_ITS | Encounter Summary ---
Author Organization [facility] Address [facility] [place] [address] Care Team Providers Care Blanchard Grinder Operator Name Role Phone Carlos Hernandez DO Primary Care Provider [phone] Encounter Details Date Type Department Care Team (Late st Contact Info) Description 01/12/2011 [place] [address] Daron Díaz MD Social History Tobacco Use Types Packs/Day [...] PM EDT Office Visit Dermatology at [facility] [address] [place] [address] Joyce Snyder MD [facility] [place] [address] documented as of this encounter Procedures Procedure Name Priority Date/Time Associated Diagnosis Comments FILM LIBRARY STORAGE ONLY MR HEAD Routine 01/12/2011 3:49 PM EDT documented in this encounter Results * FILM LIBRARY- STORAGE ONLY MR HEAD (01/12/2011 3:49 PM EDT) 01/12/2011 3:49 PM EDT Narrative RAD - 01/02/2014 11:44 AM EDT This is a non-reportable exam. Procedure Note Raza Nair - 01/02/2014 This is a non-reportable exam. Daron Díaz MD IMG FILM LIBRARY ORD ERABLES RAD [address] [place] [address] documented in this encounter Visit Diagnoses Not on filedocumented in this encounter Care Teams Blanchard Grinder Operator Relationship Specialty Start Date End Date Carlos Hernandez DO [address] [place] [address] PCP - General 08/16/10 02/25/23 documented as of this encounter
--- OUTSIDE RECORDS SUMMARY | 2024-09-23 14:25 | XMS_ITS | Encounter Summary ---
Author Organization [facility] Address [facility] [place] [address] Care Team Providers Care Chief Commercial Officer Name Role Phone Doug Valderrama MD Primary Care Provider [phone] Encounter Details Date Type Department Care Team (Late st Contact Info) Description 02/22/2009 [place] [phone] Traci Tran MD PLASTIC SURGERY Social History Tobacco Use Types Packs/Day Years [...] Visit Dermatology at [facility] [address] [place] [address] Joyce Snyder MD [facility] [place] [address] documented as of this encounter Goals Goal Patient Goal Type Associated Problems Recent Progress Patient-Stated? Author [facility] Medication Compliance and Understanding Patient Facing Action Plan On track( 018 9:29 AM EST) No Jono Reed, [facility] Note: Patient's specific desired goal: Reduction in psoriasis patches and psoriatic arthritis pain / symptoms. Measured by: pain scale, joints affected, BSA affected by psoriasis Time-frame to meet goal: ongoing - mostly effective at this time documented as of this encounter Procedures Procedure Name Priority Date/Time Associated Diagnosis Comments SURGICAL PATHOLOGY REPORT Routine 02/22/2009 9:49 AM EDT documented in this encounter Results * Surgical Pathology Report (02/22/2009 9:49 AM EDT) Surgical Pathology Report [id number] ? Location: [facility]; [address] [place] [address] The signing pathologist has (i) examined the relevant preparation(s) for the specimen(s) and (ii) rendered or confirmed the diagnosis(es). . ?Pathology Surgical Pathology Final Report Clinical Information Specimen Submitted: A - fermin Hussein Clinical History: Not provided Clinical Diagnosis: Not provided Gross Description Labeled/Fixative : ? Pannus, fresh. Qty/Size/Weight: ?Single, 69.5 x 26.0 x 4.0 cm; 6230 g. Tissue Description: ?? Elliptical portion. ??Sectioning demonstrates a ?glistening, lobulated, fatty cut surface without ?gross lesions. Sections/Process ing: ??No sections are submitted. ??aje/SHB Diagnosis Pannus, 6230 g. ?? Gross surgical pathology examination. CR-0 02/22/09 AJE 02/23/09 Verified by: ? Black DO, Joy C. ?Pathologist ?(Electronic Signature) The attending pathologist whose signature appears on this report has reviewed all diagnostic slides and has edited the gross and/or microscopic portion of the report in rendering the final pathologic diagnosis. [facility] 02/22/2009 9:49 AM EDT Traci Tran MD PATHOLOGY/CYTOLOGY O RDERATYRONE Performing Organization Address City/State/[facility] Co de Phone Number [facility] documented in this encounter Visit Diagnoses Not on filedocumented in this encounter Care Teams Chief Commercial Officer Relationship Specialty Start Date End Date Doug Valderrama MD [address] [place] [address] PCP - General Family Medicine 02/26/23 documented as of this encounter
--- OUTSIDE RECORDS SUMMARY | 2024-09-23 14:25 | XMS_ITS | Encounter Summary ---
Author Organization [facility] Address [address] [place] [address] Care Team Providers Care Pi/Senior Research Associate Name Role Phone Unknown, Provider Primary Care Provider Helder Khan MD Primary Care Provider Unknown, Provider Primary Care Provider Chanda alexandre Encounter Details Date Type Department Care Team (Late st Contact Info) Description 09/20/2021 Lab Requisition [facility] Pathology & Laboratory Medicine - [address] [address] Outr Resulting Lab, Provider Social History Tobacco Use Types Packs/Day Years [...] Procedure Name Priority Date/Time Associated Diagnosis Comments ZZCOVID-19 TEST [facility] PCR Today 09/20/2021 10:20 EST COVID-19 TESTING Routine 09/20/2021 10:2 0 EST documented in this encounter Results * COVID-19 TEST [facility] PCR (09/20/2021 10:20 EST) Swab 09/20/2021 10:2 0 EST 09/20/2021 17:23 EST us Provider Outr Resulting Lab MICROBIOLOGY - GENER AL ORDERABLES Final Result [facility] [address] [place] [address] * COVID-19 TESTING (09/20/2021 10:20 EST) COVID-19 rt-PCR Result Negative Negative 09/21/2021 15:01 EST [facility] Comment: This test has not been FDA cleared or approved. This test has been authorized by FDA under an EUA for use by authorized laboratories. This test has been authorized only for detection of nucleic acid from 2019-nCoV, not for any other viruses or pathogens. This test is only authorized for the duration of the declaration that circumstances exist justifying the authorization of emergency use of in vitro diagnostic tests for detection and/or diagnosis of 2019-nCoV under section 564(b)(1) of Act, 21 U.S.C ?? 360bbb-3(b) (1), unless the authorization is terminated or revoked sooner. Negative results do not preclude 2019-nCoV infection and should not be used as the sole basis for treatment or other patient management decisions. Negative results must be combined with clinical observations, patient history, and epidemiological information. This test was developed and its performance characteristics determined by [facility]. It has not been cleared or approved by the US Food and Drug Administration. FDA does not require this test to go through premarket FDA review. This test is used for clinical purposes. It should not be regarded as investigational or for research. This laboratory is certified under the Clinical Laboratory Improvement Amendments (CLIA) as qualified to perform high complexity clinical laboratory testing. This test is based on the [facility] COVID-19 Emergency Use Authorization (EUA) assay, with minor modification as defined by the FDA Performed on the POWo 7 Flex RT-PCR System. Performing Lab [facility] 09/21/2021 15:01 EST [facility] Swab 09/20/2021 10:2 0 EST 09/20/2021 17:23 EST us Provider Outr Resulting Lab MICROBIOLOGY - GENER AL ORDERABLES Final Result [facility] [address] [place] [address] documented in this encounter Visit Diagnoses Not on filedocumented in this encounter Care Teams Pi/Senior Research Associate Relationship Specialty Start Date End Date Unknown, Provider, PCP - General 08/10/15 12/22/21 Helder Pimentel MD [address] [place] [address] PCP - General Family Medicine - Primary Care 12/23/21 06/25/22 Unknown, Provider, [address] [place] [address] PCP - General 04/24/23 documented as of this encounter
--- OUTSIDE RECORDS SUMMARY | 2024-09-23 14:25 | XMS_ITS | Encounter Summary ---
Author Organization [facility] Address [address] [place] [address] Care Team Providers Care Ehs Teacher Name Role Phone Unavailable Primary Care Provider Unavailabl e Encounter Details Date Type Department Care Team (Late st Contact Info) Description 09/08/2000 Results Only [facility] [address] [place] [address] Carlos Hernandez, DO [address] [place], [place] [id number] Social History Tobacco Use Types Packs/Day Years [...] Procedure Name Priority Date/Time Associated Diagnosis Comments CYTOPATHOLOGY Routine 09/08/2000 0:00 EST documented in this encounter Results * CYTOPATHOLOGY (09/08/2000 0:00 EST) Pathology Report: CYTOPATHOLOGY REPORT Reports generated via electronic interface contain original data; however they are lacking the format of the original report. Caution should be taken when reading/interpreti ng unformatted reports. Name: ? IRVING ROSENTHAL ? Accession #: ? [id number] : ? 1945 (Age: 55) ??M ?Collect Date: ? 09/08/2000 Location: ? [facility] ? Receive Date: ? 09/10/2000 Provider: ? CARLOS HERNANDEZ DO Copy to: ? CYTOLOGIC DIAGNOSIS: ? Sputum, pooled x 2: ?? - No malignant cells are noted. - Pneumocytes are seen in a background of bacteria and inflammatory cells. Document reviewed and electronically signed by: ? GONZALO ANDREWS MD [facility] Report Date: ??09/11/2000 15:38 By the signature above, the attending physician certifies that he/she has personally conducted a gross and/or microscopic examination of the described specimens and rendered or confirmed the above diagnosis. Specimen Type: ? Sputum, pooled x 2 Clinical History: ? Pneumonitis - nose bleed. ? Gross Description: ? 2 tubes of cytolyt were received and processed. ? End of Report [facility] 09/08/2000 09/10/2000 15: 47 EST us Carlos Hernandez DO PATHOLOGY ORDERABLES Final Result [facility] [address] [place] [address] documented in this encounter Visit Diagnoses Not on filedocumented in this encounter
--- OUTSIDE RECORDS SUMMARY | 2024-09-23 14:25 | XMS_ITS | Encounter Summary ---
Author Organization [facility] Address [address] [place] [address] Care Team Providers Care Rn Labor And Delivery Name Role Phone Unavailable Primary Care Provider Unavailabl e Encounter Details Date Type Department Care Team (Late st Contact Info) Description 06/04/2000 Results Only [facility] [address] [place] [address] Carlos Hernandez, DO [address] [place], [place] [id number] Social History Tobacco Use Types Packs/Day Years [...] Priority Date/Time Associated Diagnosis Comments CYTOPATHOLOGY Routine 06/04/2000 0:00 EDT documented in this encounter Results * CYTOPATHOLOGY (06/04/2000 0:00 EDT) Pathology Report: CYTOPATHOLOGY REPORT Reports generated via electronic interface contain original data; however they are lacking the format of the original report. Caution should be taken when reading/interpreti ng unformatted reports. Name: ? IRVING ROSENTHAL ? Accession #: ? [id number] : ? 1945 (Age: 54) ??M ?Collect Date: ? 06/04/2000 Location: ? [facility] ? Receive Date: ? 06/07/2000 Provider: ? CARLOS HERNANDEZ DO Copy to: ? CYTOLOGIC DIAGNOSIS: ? Organisms - Sputum: ?? 1. ?No malignant cells identified. 2. ?No Pneumocystis identified. ??See comment. ? COMMENT: ? Numerous alveolar macrophages are present, along with occasional groups of bland appearing bronchial cells. ??Special stains reveal only rare fungal hyphae morphologically consistent with Marcy species. ??No Pneumocystis is identified. No viral cytopathic changes are present. ??There is no evidence of malignancy. (Dr. Abel)/[facility] Document reviewed and electronically signed by: ? Reba Abel MD PhD Report Date: ??06/08/2000 16:49 By the signature above, the attending physician certifies that he/she has personally conducted a gross and/or microscopic examination of the described specimens and rendered or confirmed the above diagnosis. Specimen Type: ? Organisms - Sputum Clinical History: ? Gross Description: ? 2cc' s of brown mucoid fluid were received and processed. ? End of Report [facility] 06/04/2000 06/07/2000 8:2 7 EDT us Carlos Hernandez DO PATHOLOGY ORDERABLES Final Result [facility] [address] [place] [address] documented in this encounter Visit Diagnoses Not on filedocumented in this encounter
--- OUTSIDE RECORDS SUMMARY | 2024-09-23 14:25 | XMS_ITS | Referral Summary ---
Author Organization [facility] Address [address] [place] [address] Care Team Providers Care Genetic Engineer Name Role Phone Unknown, Provider Primary Care Provider Unava ilable Social History Tobacco Use Types Packs/Day Years Used Date Smoking Tobacco: Never Assessed Sex and Gender Information Value Date Recorded Sex Assigned at Not on file Legal Sex Male 18:19 EST Gender Identity Not on file Sexual Orientation Not on file Plan of Treatment Not on file [facility] [place] Care Teams Genetic Engineer Relationship Specialty Start Date End Date Unknown, Provider, PCP - General 04/24/23
--- OUTSIDE RECORDS SUMMARY | 2024-09-23 14:25 | XMS_ITS ---
Author Organization [facility] [place] [address] Care Team Providers Care Billing Auditor Name Role Phone Doug Valderrama MD Primary Care Provider [phone] Dermatology Status:Enrolled (Active) Start date:12/03/2023 Enrollment date:12/03/2023 Enrollment reason:Enrolled - Currently Fills with Specialty Current support & services provided:Clinical Management, Refill Management Linked medications:dupilumab (Active) Linked problems:Atopic dermatitis (Active) Continued Care and Services Coordination
--- OUTSIDE RECORDS SUMMARY | 2024-09-23 14:25 | XMS_ITS | Clinical Summary ---
Author Organization [facility] Address [address] [place] [address] Care Team Providers Care Windows Laptop Technician Name Role Phone Unknown, Provider Primary Care Provider Unava ilable Social History Tobacco Use Types Packs/Day Years Used Date Smoking Tobacco: Never Assessed Sex and Gender Information Value Date Recorded Sex Assigned at Not on file Legal Sex Male 18:19 EST Gender Identity Not on file Sexual Orientation Not on file Plan of Treatment Health Maintenance Due Date Last Done Comments Hepatitis C Screen 1945 Fall Risk Screening 2011 RSV Immunization ( o r 60+ Years) (1 - 1-dose 75+ series) 2021 COVID-19 Vaccine (2023- season) 2024 [facility] [place] Care Teams Windows Laptop Technician Relationship Specialty Start Date End Date Unknown, Provider, PCP - General 04/24/23
--- OUTSIDE RECORDS SUMMARY | 2024-09-23 14:25 | XMS_ITS | Encounter Summary ---
Author Organization [facility] Address [address] [place] [address] Care Team Providers Care Official Greeter Name Role Phone Unknown, Provider Primary Care Provider Chanda alexandre Encounter Details Date Type Department Care Team (Late st Contact Info) Description 04/27/2023 Lab Requisition [facility] Pathology & Laboratory Medicine - [facility] [address] [place] [address] Gina Barrett MD [address] [place] [address] [phone] Encounter for other general examination Social History [...] Date/Time Associated Diagnosis Comments SURGICAL PATHOLOGY Today 04/25/2023 11 :40 EDT Encounter for other general examination documented in this encounter Results * SURGICAL PATHOLOGY (04/25/2023 11:40 EDT) Note to Patient The following pathology results have been interpreted by your pathologist and may be available to you before your health provider has had the opportunity to review them. Please allow time for your provider to receive these results and explore management options, if applicable. 05/01/2023 14:52 EDT [facility] Final Diagnosis A. SKIN OF ARM, RIGHT UPPER, PUNCH BIOPSY: - Subacute spongiotic dermatitis. See comment. 05/01/2023 14:52 [facility] Diagnosis Comment The biopsy shows features of spongiotic (eczematous) dermatitis with mild epidermal hyperplasia and scale formation. 05/01/2023 14:52 [facility] Attestation By the signature below, the attending physician certifies that they have 1) personally conducted a gross and/or microscopic examination of the described specimen(s), and/or personally interpreted the results of laboratory testing of the described specimen(s), and 2) personally rendered or confirmed the above diagnosis. 05/01/2023 14:52 [facility] at 1452 Microscopic Description Sections consist of a small punch biopsy of skin to the mid reticular dermis. The stratum corneum has parakeratosis and foci of scale crust. The epidermis shows slight acanthosis with blunted rete ridge pattern. There is a variable degree of spongiosis with lymphocytic exocytosis. The dermis has a patchy superficial perivascular and interstitial infiltrate. The infiltrate is composed primarily of lymphomononuclear cells although rare eosinophils are noted. No fungal organisms identified on sections prepared with PAS-diastase stain. 05/01/2023 14:52 [facility] Clinical History Itchy skin rash-chest, arms, back; 4 mm punch right upper arm 05/01/2023 14:52 [facility] Gross Description A. Received in formalin labelled with proper patient identification (initials P, J) and right upper arm is a 0.4 x 0.3 cm ovoid lobato skin excised to a depth of 0.1 cm. The specimen is inked blue and is entirely submitted in A1. PATRICK MICHAUD(ASCP) 04/27/2023 15:08 05/01/2023 14:52 [facility] Performing Lab [facility] 05/01/2023 14:52 [facility] Scanned Images 05/01/2023 14:52 [facility] Tissue TISSUE SPECIMEN FROM SKIN / Unknown 04/25/2023 11:40 EDT 04/27/2023 9:01 EDT us Gina Barrett MD PATHOLOGY ORDERABLES Fi nal Result [facility] [address] [place] [address] documented in this encounter Visit Diagnoses Diagnosis Encounter for other general examination documented in this encounter Care Teams Official Greeter Relationship Specialty Start Date End Date Unknown, Provider, PCP - General 04/24/23 documented as of this encounter
--- OUTSIDE RECORDS SUMMARY | 2024-09-23 14:25 | XMS_ITS | Encounter Summary ---
Author Organization [facility] Address [address] [place] [address] Care Team Providers Care Enterostomal Therapy Nurse Name Role Phone Unavailable Primary Care Provider Unavailabl e Encounter Details Date Type Department Care Team (Late st Contact Info) Description 04/22/2014 Results Only Imaging [facility] Interventional Rad Clinic - [address] [address] Raghu Baker MD [address] [place] [address] [address] [place] [address] Social History Tobacco Use Types Packs/Day Years Used Date Smoking Tobacco: Never Assessed Sex and Gender Information Value Date Recorded Sex Assigned at Not on file Legal Sex Male 18:19 EST Gender Identity Not on file Sexual Orientation Not on file documented as of this encounter Plan of Treatment Pending Results Name Type Priority Associated Diagnoses Date /Time OUTSIDE IMAGES - CT CHEST Imaging 04/22/2014 15:39 EDT OUTSIDE IMAGES - OTHER CHEST Imaging 04/22/2014 15:39 EDT OUTSIDE IMAGES - OTHER CHEST Imaging 04/22/2014 15:39 EDT documented as of this encounter Visit Diagnoses Not on filedocumented in this encounter
--- OUTSIDE RECORDS SUMMARY | 2024-09-23 14:25 | XMS_ITS | Encounter Summary ---
Author Organization [facility] [place] [address] Care Team Providers Care Visual Arts Teacher Name Role Phone Doug Valderrama MD Primary Care Provider [phone] Encounter Details Date Type Department Care Team (Late st Contact Info) Description 07/14/2008 Orders [place] [address] Dave Barragan MD Social History Tobacco Use Types Packs/Day [...] 2:00 PM EDT Office Visit Dermatology at [facility] [address] [place] [address] Joyce Snyder MD [facility] [place] [place] [address] documented as of this encounter Goals Goal Patient Goal Type Associated Problems Recent Progress Patient-Stated? Author [facility] Medication Compliance and Understanding Patient Facing [...] Associated Diagnosis Comments SURGICAL PATHOLOGY REPORT Routine 07/14/2008 9:38 AM EDT documented in this encounter Results * Surgical Pathology Report (07/14/2008 9:38 AM EDT) Pathologist [facility] Surgical Pathology Report [id number] ? Location: [facility]; [facility]; A The signing pathologist has (i) examined the relevant preparation(s) for the specimen(s) and (ii) rendered or confirmed the diagnosis(es). . ?Pathology Surgical Pathology Final Report Clinical Information Specimen Submitted: A - Femoral head left hip Clinical History: Not provided Clinical Diagnosis: Left hip OA Gross Description Labeled/Fixativ e: ? Left femoral head, fresh. Quantity/Size: ?One femoral head, 5.5 x 5.5 x 5.3 cm. Tissue Description: ?? Intact femoral head with up to 2.0-cm of attached ?neck. ?? Margin: ?The neck resection margin is smooth, red, trabecular ?bone. ?? Articular surface: Harper-yellow and smooth. ? Eburnation: ?Absent. ? Osteophytes: ? Absent. ?? Cut surface: ? [place]-yellow, trabecular bone with a ?4.0 x 3.5 x 3.0-cm, chalky yellow, wedge-shaped lesion with overlying articular surface collapse. ??The lesion is surrounded by a rim of hyperemia. ? Subchondral Sclerosis: ??Absent. ? Subchondral Cysts: ?Absent. Sections/Proces sing: ??Representativ e sections of the lesion are submitted. ? (R2, decal) ?jlk/SNS Microscopic Description Slides reviewed, microscopic description not recorded. Diagnosis Femoral head, left, resection: 1. ??Osteoarthriti s. 2. ??Subchondral necrosis with marrow necrosis and secondary cystic degenerative change. CR-0 07/17/08 [facility] 07/17/08 Verified by: ? Black DO, Joy C. ?Pathologist ?(Electronic Signature) The attending pathologist whose signature appears on this report has reviewed all diagnostic slides and has edited the gross and/or microscopic portion of the report in rendering the final pathologic diagnosis. MARCY FINCH 07/14/2008 9:38 AM EDT Dave Barragan MD PATHOLOGY/CYTOLOGY O RDERABLES MARCY FINCH documented in this encounter Visit Diagnoses Not on filedocumented in this encounter Care Teams Visual Arts Teacher Relationship Specialty Start Date End Date Doug Valderrama MD [address] [place] [address] PCP - General Family Medicine 02/26/23 documented as of this encounter
--- OUTSIDE RECORDS SUMMARY | 2024-09-23 14:25 | XMS_ITS | Encounter Summary ---
Author Organization [facility] Address [facility] [place] [address] Care Team Providers Care Emergency Vehicle Operations Instructor Name Role Phone Carlos Hernandez DO Primary Care Provider Encounter Details Date Type Department Care Team (Late st Contact Info) Description 11/11/2010 1:45 PM EST [place] [address] Lan Singh MD [facility] [place] [place] [address] Discharge Disposition: Home Social History Tobacco Use [...] 2:00 PM EDT Office Visit Dermatology at [facility] [address] [place] [id number] Joyce Snyder MD [facility] [place] [place] [address] documented as of this encounter Visit Diagnoses Not on filedocumented in this encounter Care Teams Emergency Vehicle Operations Instructor Relationship Specialty Start Date End Date David, Carlos, DO [address] [place] [address] PCP - General 08/16/10 02/25/23 documented as of this encounter
== END 2024-09-23 14:13 | disposition home or self-care (01) ==
PROVIDERS: PCP Family Medicine; Visit Provider Family Medicine
DX: E87.1 Hypo-osmolality and hyponatremia (principal); D64.9 Anemia, unspecified
CPT/HCPCS: 36415; 80048; 85025

== ENCOUNTER 2024-09-29 03:02 | Outpatient (CLI) | payer MEDICARE, BC, SELFPAY ==
--- NOTE | 2024-09-29 07:30 | DI.CT_ITS ---
Exam(s) CT CHEST WO EXAM: CT CHEST WO CLINICAL HISTORY: follow up LUNG MASS, R91.8. TECHNIQUE: Imaging protocol: Axial computed tomography images were obtained and coronal and sagittal reformatted images were created and reviewed. Lung Computer Aided Detection (CAD) was utilized. COMPARISON: CT CT CHEST WO from 01/28/2024 FINDINGS: Tracheobronchial tree: Patent where visualized. No bronchiectasis is present. Pulmonary parenchyma: Centrilobular emphysematous changes are present. There is stable scarring seen in the left lower lobe. There has been significant decrease in size of the elongated area in the ri ght upper lobe with small residual nodularity present measuring 1.0 x 0.7 cm (series 2, image 46). N o focal consolidating infiltrates are present. Mediastinum and [place]: Stable mediastinal and hilar lymph nodes. The esophagus is unremarkable. Thyroid gland: Unremarkable. Pleura: Stable mild pleural thickening in the left lower lobe. No pleural effusion or pneumothorax. Heart: The heart is not dilated. Three vessel coronary artery calcification is present. 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 No pericardial effusion. Aorta: Thoracic aorta non-dilated. Atherosclerotic calcification is present. Upper abdomen: Cholelithiasis. Lymph nodes: Within normal limits. Tubes, Catheters, and Lines: There is a cardiac pacing device in place. Soft tissues: Mild gynecomastia. Bones:Within normal limits for the patient's age. Sternal wires are in place. IMPRESSION: 1. Marked significant decrease in size of the right upper lobe nodule. There is small residual nodul arity measuring 1 x 0.7 cm. 2. No acute pulmonary process. RADIATION DOSE DELIVERED: 405.74mGy.cm Total DLP 405.74mGy.cm Total DLP DATA REPOSITORY: All CT scans at this facility are submitted to the National Radiology Data Registry (NRDR) Dose Index Registry (DIR) with the [employer] ([employer]). RADIATION OPTIMIZATION: All CT scans at this facility use at least one of these dose optimization te chniques: automated exposure control; mA and/or kV adjustment per patient size (includes targeted exa ms where dose is matched to clinical indication); or iterative reconstruction.
== END 2024-09-29 03:22 ==
LOC: DI 03:02
PROVIDERS: PCP Family Medicine; Visit Provider Physician Assistant Surgical
DX: R91.8 Other nonspecific abnormal finding of lung field (principal)
CPT/HCPCS: 71250

== ENCOUNTER → 2024-10-22 11:11 | Outpatient (BNVA) | payer MEDICARE, BC, SELFPAY | PROVIDERS: PCP Family Medicine; Referring Provider Family Medicine; Visit Provider Physician Assistant Surgical | DX: J44.9 Chronic obstructive pulmonary disease, unspecified (principal); R91.8 Other nonspecific abnormal finding of lung field; G47.33 Obstructive sleep apnea (adult) (pediatric); I25.810 Atherosclerosis of coronary artery bypass graft(s) without angina pectoris; N18.30 Chronic kidney disease, stage 3 unspecified; Z87.891 Personal history of nicotine dependence | CPT/HCPCS: 99214 ==

== ENCOUNTER 2025-04-22 04:07 | Outpatient (CLI) | payer MEDICARE, BC, SELFPAY ==
[2025-04-27 11:36] LABS: ALT 26 U/L (7-55); ActiTest Grade A0-A1; ActiTest Interpretation no activity; ActiTest Score 0.25; Apoliprotein A1 132 mg/dL (>=120); Bilirubin, Total 0.5 mg/dL (0.0 - 1.2); FibroTest Interpretation severe fibrosis; FibroTest Score 0.91; FibroTest Stage F4; GGT 515 U/L (8 - 61)
== END 2025-04-22 04:08 | disposition home or self-care (01) ==
LOC: LBO 04:07
PROVIDERS: PCP Family Medicine; Visit Provider Family Medicine
DX: Z11.59 Encounter for screening for other viral diseases (principal); K74.00 Hepatic fibrosis, unspecified
CPT/HCPCS: 36415; 81596

== ENCOUNTER → 2025-06-23 08:45 | Outpatient (BNVA) | payer MEDICARE, BC, SELFPAY | PROVIDERS: PCP Family Medicine; Referring Provider Family Medicine; Visit Provider Physician Assistant Surgical | DX: R91.8 Other nonspecific abnormal finding of lung field (principal); J44.9 Chronic obstructive pulmonary disease, unspecified; I25.810 Atherosclerosis of coronary artery bypass graft(s) without angina pectoris; N18.30 Chronic kidney disease, stage 3 unspecified; I50.20 Unspecified systolic (congestive) heart failure; Z23 Encounter for immunization | CPT/HCPCS: 36415; 90471; 90684; 99214 ==

== ENCOUNTER 2025-06-23 17:15 | Outpatient (REF) | payer MEDICARE, BC, SELFPAY ==
[2025-06-23 10:41] LABS: Abs Immature Grans 0.00 10^3/uL (0.0-0.06); HCT 38.4 % (40.0-50.0); HGB 12.5 g/dL (13.5-17.5); Immature Grans % 0.0 %; MCH 29.5 pg (27.0-33.0); MCHC 32.6 % (32.0-36.0); MCV 91 fL (80-95); MPV 10.1 fL (8.0-11.0); RBC 4.24 10^6/uL (4.36-5.78); RDW 14.8 % (11.8-14.1); RDW-SD 49.4 fL; WBC 3.52 10^3/uL (4.4-10.8)
[2025-06-23 11:10] LABS: Platelet Count 85 10^3/uL (130-400)
[2025-06-23 11:27] LABS: Iron 82 ug/dL (65-175)
[2025-06-23 11:51] LABS: Ferritin 121 ng/mL (26-388); TSH 2.03 uIU/mL (0.36-3.74); Vitamin B12 938 pg/mL (193-986); Vitamin D 25 Total 92 ng/mL (30-100)
== END 2025-06-23 17:16 | disposition home or self-care (01) ==
LOC: LBN 17:15
PROVIDERS: PCP Family Medicine; Visit Provider Physician Assistant Surgical
DX: D64.9 Anemia, unspecified (principal); E55.9 Vitamin D deficiency, unspecified
CPT/HCPCS: 82306; 82607; 82728; 83540; 84443; 85025

== ENCOUNTER → 2025-06-25 10:56 | Outpatient (BNVA) | payer MEDICARE, BC, SELFPAY | PROVIDERS: PCP Family Medicine; Referring Provider Family Medicine; Visit Provider Physician Assistant | DX: M17.0 Bilateral primary osteoarthritis of knee (principal) | CPT/HCPCS: 20610; J1010 ==